=== PATIENT | male | born 1940 | race Caucasian/White ===

== ENCOUNTER → 2018-02-11 15:29 | Outpatient (CLI) | payer MEDICARE, OTHER, SELFPAY ==
--- NOTE | 2018-02-11 15:34 | MR_ITS ---
MR lumbar spine wo con Ordering Physician: Beltran Batista MD Patient Age: 77 years: Male HISTORY: ITS.REASON: LOW BACK PAIN AT MULTIPLE SITES Low back pain for years. TECHNIQUE: Sagittal STIR, T1, T2, axial T1 and T2. On 1.5T Siemens wide bore MRI. 3-D MR myelogram image set obtained & performed on MRI workstation. Additional sagittal thin section T2 weighted dataset obtained from this latter acquisition as well (---76 CPT) COMPARISON :June 2016 MRI FINDINGS Vertebral bodies are intact no compression fractures. L5/S1. This disc remains well-hydrated and fairly well-maintained. The prominent fairly exuberant facet hypertrophy digital bilateral foraminal encroachment and stenosis. L4/5 severe, critical central canal stenosis has developed at this level since 2016.. As seen on 2016 we again note the grade 1 anterolisthesis of L4 on L5 with roughly 4.5 mm anterolisthesis of L4 on L5. This is associated prominent diffuse disc bulge. There is now an additional additional additional disc extrusion/ herniation to the right paracentral region which extends slightly caudal to the disc and prominent indents the thecal sac right paracentral. It Further narrows the now markedly narrowed thecal sac.. The very exuberant facet & ligament flavum hypertrophy also significantly narrows the spinal canal. Together these features yield yield the severe, critical appearing spinal stenosis. Warrants timely neurosurgical consult. We Continue see CSF to this region but fairly prompt neurosurgical consult if recent progression of symptoms. L3/4. Disc intact. Prominent facet arthropathy, hypertrophy. L2/3. Disc intact. Moderate/generous facet and ligament flavum hypertrophy right greater than left. L1/2. Disc intact. Moderate facet hypertrophy. T12/L1 disc intact with mild facet hypertrophy. The left/12 disc intact with mild facet hypertrophy at this level as well as the level above. 3-D MR myelogram image set nicely demonstrates the severe near critical appearing spinal stenosis at L4/5. The thecal sac is severely narrowed and compromised. Fluid related to facet arthropathy is noted bilaterally right greater than left at this level as well -------IMPRESSION 1. Severe, fairly critical appearing central canal stenosis at L4/5 has developed since 2016. ... At L4/5 there there was previous underlying grade 1 anterolisthesis with diffuse disc bulge and marked exuberant facet hypertrophy. However now there is additional rightward caudal disc extrusion/disc herniation to the right which indents the thecal sac to right. ... These features combine to yield combination of features to yield the severe, fairly critical appearing central canal spinal stenosis.. ...*Timely neurosurgical consult warranted*. This would be more urgent if there were progressive or new symptoms 2. Other Lumbar disc appear intact. But there is prominent facet hypertrophy multiple levels.:. .L5/S1 Exuberant facet hypertrophy encroach upon the foramen . Diminishing facet hypertrophy moving superiorly up from L3/4,to L2/3 to L1/2
== END ==
PROVIDERS: Family Provider Family Medicine; PCP Family Medicine; Visit Provider Family Medicine
DX: M54.5 Low back pain (principal)
CPT/HCPCS: 72148; 76376

== ENCOUNTER → 2018-05-13 12:22 | Outpatient (POV) | payer MEDICARE, OTHER, SELFPAY | PROVIDERS: Family Provider Family Medicine; PCP Family Medicine; Visit Provider Neurological Surgery | DX: Z00.00 Encounter for general adult medical examination without abnormal findings (principal) ==

== ENCOUNTER → 2019-01-24 08:34 | Outpatient (POV) | payer MEDICARE, OTHER, SELFPAY | PROVIDERS: Visit Provider Nurse Practitioner Family | DX: Z00.00 Encounter for general adult medical examination without abnormal findings (principal) ==

== ENCOUNTER 2019-03-10 09:00 | Outpatient (RCR) | payer MEDICARE, OTHER, SELFPAY | END 2019-03-10 09:05 | disposition home or self-care (01) | LOC: PT 09:00 | PROVIDERS: Visit Provider Family Medicine | DX: M54.5 Low back pain (principal) | CPT/HCPCS: 97014; 97110; 97140; 97163; 97164; G0283 ==

== ENCOUNTER → 2019-06-14 08:21 | Outpatient (CLI) | payer MEDICARE, OTHER, SELFPAY ==
--- NOTE | 2019-06-14 08:29 | MR_ITS ---
PROCEDURE: MR PELVIS WO CON CLINICAL INDICATION: left groin pain/poss recurrent hernia Left lower quadrant pain, groin pain with burning stinging and throbbing COMPARISON: No exams were available for comparison TECHNIQUE: Routine multiplanar multi echo sequences are performed without gadolinium enhancement. FINDINGS: There is moderate degree of motion artifact. This does obscure fine detail. There is some nonspecific slight increased T2 signal in the left inguinal region which may be related to postsurgical changes. No obvious recurrence hernia apparent. A few small nodes are present in the inguinal region on both sides. No abnormal muscular or bone marrow signal intensity. No obvious mass the or abnormal fluid collection. IMPRESSION: Slight increased T2 signal in the left inguinal area nonspecific and may be due to postsurgical changes. No obvious recurring hernia or mass or localized fluid collection Dictated by: Grey Viveros MD 06/15/2019 11:34 Electronically signed by Grey Viveros MD in [place] 06/16/2019 05:09
== END ==
PROVIDERS: PCP Family Medicine; Visit Provider Surgery
DX: K40.91 Unilateral inguinal hernia, without obstruction or gangrene, recurrent (principal); R10.32 Left lower quadrant pain
CPT/HCPCS: 72195

== ENCOUNTER → 2019-09-05 10:25 | Outpatient (POV) | payer MEDICARE, OTHER, SELFPAY ==
[2019-09-05 10:48] VITALS: BP 134/65; PULSE 78; RESP 18; O2SAT 99; BMI 21.2
--- NOTE | 2019-09-05 11:12 | HMH.PMCON ---
Assessment and Plan (1) Spinal stenosis, lumbar region with neurogenic claudication Current visit: Yes Status: Chronic Category: Medical Code(s): M48.062 - Spinal stenosis, lumbar region with neurogenic claudication (2) Degenerative disc disease Current visit: Yes Status: Chronic Qualifiers: Spinal region: lumbar Qualified Code(s): M51.36 - Other intervertebral disc degeneration, lumbar region Category: Medical (3) Radiculopathy Current visit: Yes Status: Chronic Category: Medical Code(s): M54.10 - Radiculopathy, site unspecified - Assessment and plan all Dx Assessment and Plan for all problems:: We will schedule the patient for an epidurogram and L4-L5 lumbar epidural steroid injection. This will be to determine if he is a mild candidate. Patient states he does not want any oral narcotic medications I discussed with him that we would not be providing this. Patient again has seen a surgeon however he was referred for epidural injections which worked for short amount of time however they are no longer working for him. Patient has an MRI showing exuberant ligamentum flavum hypertrophy we will see if he is a candidate for mild. Patient's not on any anticoagulation therapy. I will follow-up with him afterwards reassess his symptoms at that time he has been instructed to call the office if he has any issues prior to his next appointment. Dr. Jimenez has reviewed this note and agrees with this plan of care. This note was dictated using voice recognition software and may contain errors or omissions HPI - Data of Consult Consult date: 09/05/19 Requesting Physician: Nereida Shaffer APRN Primary Care Provider: Beltran Batista MD - Consult Narrative Reason for consult: Back pain History of present illness: Mr. Adorno is a 79 year old male who presents today for consultation in regards to his low back pain. Patient has seen multiple pain providers and received facet joint injections rhizotomies and epidurals with no long-term relief. Patient did get several months of relief with his epidurals however this is now no longer beneficial for him. Patient has an MRI showing severe central canal stenosis and ligamentum flavum hypertrophy at the L4-L5 level. Patient states that it is difficult for him to stand and walk he gets weakness and numbness in his legs he has to lean forward or sit down for relief. Patient is not on any anticoagulation therapy. Patient will has been seen by a surgeon however they recommended he do epidural injections at the time. Patient and I had a long discussion about the mild procedure I do believe it would benefit him. Patient was given information in regards to this. Patient and I discussed an epidurogram and we will move forward with that at this time. CC: Nereida Shaffer APRN [facility] History I have reviewed the patient's past medical history: Yes Medical History: Reports:: Heart Murmur, Hyperlipidemia, Hypertension Denies:: Cancer, Diabetes Mellitus Type 1, Diabetes Mellitus Type 2, Internal Pacemaker, Lung Disease, MRSA, Seizures *Have you ever received a pneumonia vaccine?: Yes *Have you received a flu vaccine this season?: Yes Other Surgeries: Yes: Cholecystectomy, Colonoscopy, Colon Resection, EGD, Hernia Repair, Other. No: Pacemaker Amputation: No Fractures: No - *Social History Smoking Status: Never smoker Alcohol Intake: never Substance Use Type: denies use *Occupational Status:: other Housing: house Household Members: other *Travel in the last 8 weeks: None Family Hx:: Unable to obtain Review of Systems - Review of Systems ROS General: no recent weight change, no fever, no sleep disturbances Respiratory: no cough, no shortness of air, no recurring pulmonary infections Cardiovascular/Peripheral Vascular: No chest pain, No palpitations, no edema, no shortness of breath. Gastrointestinal: no new onset incontinence, normal bowel movements reported Genitourina
== END ==
PROVIDERS: PCP Family Medicine; Visit Provider Clinical Nurse Specialist Family Health
DX: M48.062 Spinal stenosis, lumbar region with neurogenic claudication (principal); M51.36 Other intervertebral disc degeneration, lumbar region; Z79.899 Other long term (current) drug therapy
CPT/HCPCS: 99202

== ENCOUNTER → 2019-11-28 10:13 | Outpatient (CLI) | payer MEDICARE, OTHER, SELFPAY ==
[2019-11-28 10:28] LABS: Basophils # 0.1 K/mm3 (0-0.2); Basophils % 0.7 % (0.1-2.0); Eosinophils # 0.2 K/mm3 (0.0-0.4); Hemoglobin 13.3 g/dL (14.1-18.0); Lymphocytes # 1.9 K/mm3 (0.7-4.5); Lymphocytes % 24.7 % (10-50); Mean Corpuscular HGB Conc 34.2 g/dL (31.8-35.4); Mean Corpuscular Hemoglobin 29.8 pg (27.0-31.2); Mean Corpuscular Volume 87.2 fl (80-94); Mean Platelet Volume 9.5 fl (7.4-10.4); Monocytes # 0.5 K/mm3 (0.1-1.0); Monocytes % 6.4 % (1.7-9.3); Neutrophils # 5.1 K/mm3 (1.8-7.8); Neutrophils % 65.2 % (37.0-80.0); Platelet Count 209 K/mm3 (142-424); Red Blood Count 4.48 M/mm3 (4.60-6.20); White Blood Count 7.8 K/mm3 (4.8-10.8)
[2019-11-28 11:37] LABS: Anion Gap 7.6 mEq/L (5-15); Blood Urea Nitrogen 18 mg/dl (9-20); Calcium 9.2 mg/dl (8.4-10.2); Carbon Dioxide 24 mmol/L (22.0-30.0); Chloride 109 mmol/L (98-107); Estimated Glomerular Filt Rate 109 ml/min (>60); GFR (African American) 131 ML/MIN (>60); Glucose 104 mg/dl (74-100); Potassium 3.6 mmoL/L (3.5-5.1); Sodium 137 mmol/L (136-145)
[2019-11-29 08:59] LABS: Covid-19 Nasal PCR Sendout Lex NOT DETECTED
--- NOTE | 2019-11-29 10:12 | PC.NURSE ---
0940-Patient, Mathew HOWE & Frances HOWE notified of negative COVID 19 results.
== END ==
PROVIDERS: Visit Provider Anesthesiology
DX: Z01.818 Encounter for other preprocedural examination (principal)
CPT/HCPCS: 36415; 80048; 85025; U0003

== ENCOUNTER → 2019-11-30 07:20 | Day surgery (SDC) | payer MEDICARE, OTHER, SELFPAY ==
--- NOTE | 2019-11-25 13:40 | SUR.PREOP ---
11/25/19 @ 3050--PHONE CALL MADE TO PATIENT. PATIENT UNDERSTANDS THAT LAB WORK AND COVID-19 TESTING NEEDS TO BE COMPLETED @ 1000 ON 11/28/19. PATIENT UNDERSTANDS IF LAB WORK AND COVID-19 TESTS ARE NOT COMPLETED BY 12PM ON THAT DATE, THE SURGERY SCHEDULED WILL BE CANCELLED AND RESCHEDULED FOR ANOTHER TIME.
[2019-11-29 10:22] VITALS: BMI 22.0
[2019-11-30] VITALS (9 sets, daily range): BP systolic 128–165; BP diastolic 63–98; PULSE 59–78; RESP 18–20; TEMP 36.7–36.8; O2SAT 96–98
--- NOTE | 2019-11-30 08:15 | HMH.ANESCL ---
[facility] Anesthesia Checklist - Patient Identification Patient Identification: Arm Band - Structural Data Admitted From: Home Planned Operative Procedure/s: MILD procedure L4/5 Consent for Planned Operative Procedure(s) Verified: Yes Verified Documents: Surgical Consent, History and Physical - NPO Status Verified Time NPO: 00:00 - Additional verifications Anesthesia Reactions: No Hx Blood Transfusions: No Blood Transfusion Reaction: No - Airway Assessment C-Spine Mobility Assessed: Yes (mp2) TMJ Mobility Assessed: Yes Dentition: Good Dentition - Neurological Assessment Level of Consciousness: Awake, Alert - Anesthesia Plan Anesthesia Risk discussed: Yes Anesthesia Plan: Verified ASA Class: II Anesthesia Type: MAC [facility] History I have reviewed the patient's past medical history: Yes Medical History: Reports:: Cancer (colon 1997), Gastroesophageal Reflux Disease(GERD), Heart Murmur, Hyperlipidemia, Hypertension Denies:: Diabetes Mellitus Type 1, Diabetes Mellitus Type 2, Internal Pacemaker, Lung Disease, MRSA, Seizures *Have you ever received a pneumonia vaccine?: Yes *Have you received a flu vaccine this season?: Yes Other Medical History: Denies: Blood Transfusion Reaction Anesthesia experience/problems:: nac Other Surgeries: Yes: Cholecystectomy, Colonoscopy, Colon Resection, EGD, Hernia Repair, Other. No: Pacemaker Amputation: No Fractures: No - *Social History Educational Level: Completed High School Smoking Status: Never smoker Alcohol Intake: never Substance Use Type: denies use *Occupational Status:: retired Housing: house Household Members: spouse *Travel in the last 8 weeks: None Family Hx:: Cancer, Coronary Artery Disease, Heart Attack
--- NOTE | 2019-11-30 10:47 | HMH.OPNOTE ---
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 He did get some benefit from his last lumbar epidural steroid injection however on epidurogram he has significant stenosis at L4-L5 bilaterally. This is also seen on MRI. He cannot stand or walk very long. After standing or walking he does get significant pain in his back and legs with some cramping. We will do bilateral minimally invasive lumbar decompression at L4-L5 today to help with his pain symptoms. Operative findings:: None Operative note:: Informed consent was obtained and the risk and benefits of the procedure was explained to the patient. The patient was taken to the operating room and placed prone on the procedure table. The patient was prepped and draped in sterile fashion. C-arm fluoroscopy was used to view the lumbar spine. Lines were drawn at the spinous process and medial border of the pedicles bilaterally. The skin and subcutaneous tissues were anesthetized using lidocaine. A epidural needle was inserted and advanced into the through L4-L5 interspace. After confirmation of needle placement in the epidural space, dye was injected. There was an epidurogram seen at L4-L5. Significant stenosis was seen at L4-L5. Most of this patient's symptoms were on the right. The skin and subcutaneous tissues again were anesthetized using lidocaine. An incision was made and a access trocar was inserted and advanced to contact at the superior aspect of the L5 lamina on the left side. And a contralateral oblique view the side was viewed. Using a bone rongeur and tissue sculptor we debulked bone from the L4-L5 interspace on the left side. We then used the tissue sculptor to debulk ligament at the L4-L5 interspace on the left side. We then moved over to the right side and debulked bone and ligament from L4-L5 on the right side. A total of 3 mL's of dye was used. There is good spread of dye above and below this level as well. The epidural needle was removed and dressings were placed. This encounter for exam is for normal comparison and control in a clinical research program Patient was taken to recovery in stable condition. Patient was discharged home neurologically intact and with good relief of pain symptoms. Plan and disposition: We will follow-up with this patient in 2 weeks. Will reevaluate symptoms at that time. Condition: stable Disposition: PACU Complications:: None
== END ==
PROVIDERS: PCP Family Medicine; Visit Provider Anesthesiology
PROC: (CPT 0275T; principal; 2019-11-30 08:45)
DX: M48.062 Spinal stenosis, lumbar region with neurogenic claudication (principal); Z00.6 Encounter for examination for normal comparison and control in clinical research program; M51.36 Other intervertebral disc degeneration, lumbar region; Z85.038 Personal history of other malignant neoplasm of large intestine; K21.9 Gastro-esophageal reflux disease without esophagitis; I10 Essential (primary) hypertension; E78.5 Hyperlipidemia, unspecified; R01.1 Cardiac murmur, unspecified; Z80.9 Family history of malignant neoplasm, unspecified; Z82.49 Family history of ischemic heart disease and other diseases of the circulatory system; Z84.89 Family history of other specified conditions
CPT/HCPCS: 0275T; 96372; 96374; C1889; J1040; J3370

== ENCOUNTER → 2019-12-12 12:55 | Outpatient (POV) | payer MEDICARE, OTHER, SELFPAY ==
[2019-12-12 13:13] VITALS: BP 130/86; PULSE 107; RESP 18; TEMP 36.6; O2SAT 99; BMI 36.9
--- NOTE | 2019-12-12 13:29 | P.CONS_ITS ---
[facility] Pain Management SOAP Note Subjective:: Patient is a pleasant 79-year-old white male who presents today for follow-up after his minimally invasive lumbar decompression. Patient states his back feels better and his left side has gotten much better. His only complaint is right-sided SI joint pain and right-sided piriformis pain. Patient and I discussed injective therapy for this. He would like to move forward with this. He rates his pain today a 7 out of 10. ROS General: no recent weight change, no fever, no sleep disturbances Respiratory: no cough, no shortness of air, no recurring pulmonary infections Cardiovascular/Peripheral Vascular: No chest pain, No palpitations, no edema, no shortness of breath. Gastrointestinal: no new onset incontinence, normal bowel movements reported Genitourinary: no new onset incontinence Musculoskeletal: SI joint pain, piriformis pain Psychiatric: normal mood/ affect, [denies depression], [denies anxiety] Neurological: [denies new onset weakness in extremities], [denies new onset balance issues] Objective:: Physical Exam General: Alert and oriented x3, no acute distress, pleasant and cooperative, [on room air] Lungs: Resps E/U, Symmetrical chest expansion, Eyes: PERRL Musculoskeletal: Flexion and extension of lumbar spine somewhat guarded seco ndary to pain, deep tendon reflexes normal, strength in upper and lower extremities [5/5], [abnormal gait noted] Neurological: speech clear, knowledge management consultant equal, no gross sensory deficits Assessment:: Sacroiliitis, piriformis syndrome, myofascial pain syndrome Plan:: We will schedule the patient for a right SI joint injection right piriformis injection. I will follow-up with him after this reassess his symptoms at that time he has been instructed to call the office if he has any issues prior to his next appointment. Dr. Jimenez has reviewed this note and agrees with this plan of care. This note was dictated using voice recognition software and may contain errors or omissions [facility] History I have reviewed the patient's past medical history: Yes Medical History: Reports:: Cancer (colon 1997), Gastroesophageal Reflux Disease(GERD), Heart Murmur, Hyperlipidemia, Hypertension Denies:: Diabetes Mellitus Type 1, Diabetes Mellitus Type 2, Internal Pacemaker, Lung Disease, MRSA, Seizures *Have you ever received a pneumonia vaccine?: Yes *Have you received a flu vaccine this season?: Yes Other Medical History: Denies: Blood Transfusion Reaction Other Surgeries: Yes: Cholecystectomy, Colonoscopy, Colon Resection, EGD, Hernia Repair, Other. No: Pacemaker Amputation: No Fractures: No - *Social History Smoking Status: Never smoker Alcohol Intake: never Substance Use Type: denies use *Occupational Status:: other Housing: house Household Members: spouse *Travel in the last 8 weeks: None Family Hx:: Cancer, Coronary Artery Disease, Heart Attack
== END ==
PROVIDERS: PCP Family Medicine; Visit Provider Clinical Nurse Specialist Family Health
DX: M46.1 Sacroiliitis, not elsewhere classified (principal); M79.18 Myalgia, other site
CPT/HCPCS: 99212

== ENCOUNTER 2019-12-13 13:28 | Day surgery (SDC) | payer MEDICARE, OTHER, SELFPAY ==
[2019-12-13 13:35] VITALS: BP 121/64; PULSE 70; RESP 18; O2SAT 96; BMI 22.0
--- NOTE | 2019-12-13 13:46 | HMH.PMPROC ---
- Procedure Date: 12/13/19 Time: 13:46 Anesthesiologist:: Nereida Shaffer APRN Complications:: None Pre-procedure Diagnosis:: Sacroiliitis myofascial pain syndrome Post-procedure Diagnosis:: Same Indications for Procedure:: Patient is a pleasant 79-year-old white male who presents today for right SI joint injection right piriformis muscle injection. He had a minimally invasive lumbar decompression and did better however he is now complaining of right SI joint pain and right piriformis pain. He rates his pain a 7 out of 10. Move forward with an injection today. Procedure Details:: Informed consent was obtained and the risks and benefits of the procedure were explained to the patient. Patient was taken to the procedure room. Patient was placed prone on the procedure table. The [right] hip was prepped using ChloraPrep as a cleansing solution. The skin and subcutaneous tissues were anesthetized using lidocaine. Using fluoroscopic guidance I placed a 22-gauge spinal needle into the inferior aspect of the [right] SI joint. After this I injected 5 mL bupivacaine 0.25% and Depo-Medrol 40 mg into the [right] SI joint. The patient tolerated the procedure well with no complication. He then moved onto the piriformis muscle injection right piriformis area was prepped using ChloraPrep as a cleansing solution. Trigger points were palpated and marked. Each of these trigger points were injected with 3 mL's of bupivacaine 0.25 and Depo-Medrol 10 mg. A total of 40 milligrams of Depo-Medrol was used for 2 trigger points in the piriformis muscle. Bandages were placed over the injection sites. Patient tolerated the procedure well with no complications. Plan and Disposition:: We will see the patient back in several weeks reassess his symptoms at that time he has been instructed to call the office if he has any issues prior to his next appointment. Dr. Jimenez has reviewed this note and agrees with this plan of care. This note was dictated using voice recognition software and may contain errors or omissions
[2019-12-13 13:50] VITALS: BP 135/85; PULSE 74; RESP 18
[2019-12-13 13:55] VITALS: BP 140/85; PULSE 75; RESP 18
[2019-12-13 14:19] VITALS: BP 126/64; PULSE 64; RESP 18; O2SAT 96
== END 2019-12-13 14:21 | disposition home or self-care (01) ==
LOC: SC.PAINP 13:29
PROVIDERS: PCP Family Medicine; Visit Provider Clinical Nurse Specialist Family Health
DX: M46.1 Sacroiliitis, not elsewhere classified (principal); M79.18 Myalgia, other site; M48.062 Spinal stenosis, lumbar region with neurogenic claudication; R01.1 Cardiac murmur, unspecified; I25.10 Atherosclerotic heart disease of native coronary artery without angina pectoris; Z87.19 Personal history of other diseases of the digestive system
CPT/HCPCS: 20552; 27096; G0260; J1030; Q9966

== ENCOUNTER → 2020-01-03 11:43 | Outpatient (POV) | payer MEDICARE, OTHER, SELFPAY ==
[2020-01-03 12:10] VITALS: BP 102/58; PULSE 79; RESP 18; TEMP 36.6; O2SAT 98; BMI 21.2
--- NOTE | 2020-01-03 12:20 | P.CONS_ITS ---
[facility] Pain Management SOAP Note Subjective:: Patient is a pleasant 79-year-old white male who presents today for follow-up. Patient had a NM LD procedure and has not had much relief from it. Patient states he is had about 20% improvement he is having worsening right leg pain. Patient had an SI joint injection which has not been beneficial. Patient and I talked about a lumbar epidural steroid injection. Patient rates his pain a 6 out of 10. He is having difficulty walking. We will set him up for an injection as soon as possible. He is not on any anticoagulation therapy. ROS General: no recent weight change, no fever, no sleep disturbances Respiratory: no cough, no shortness of air, no recurring pulmonary infections Cardiovascular/Peripheral Vascular: No chest pain, No palpitations, no edema, no shortness of breath. Gastrointestinal: no new onset incontinence, normal bowel movements reported Genitourinary: no new onset incontinence Musculoskeletal: Back pain, right leg pain Psychiatric: normal mood/ affect Neurological: [denies new onset weakness in extremities], [denies new onset balance issues] Objective:: Physical Exam General: Alert and oriented x3, no acute distress, pleasant and cooperative, [on room air] Lungs: Resps E/U, Symmetrical chest expansion, Eyes: PERRL Musculoskeletal: Flexion and extension of lumbar spine somewhat guarded secondary to pain, deep tendon reflexes normal, strength in upper and lower extremities [5/5], [abnormal gait noted] Neurological: speech clear, co teacher equal, no gross sensory deficits Assessment:: Degenerative disc disease lumbar spine with lumbar radiculopathy spinal stenosis neurogenic claudication Plan:: We will set the patient up for an L4-L5 lumbar epidural steroid injection. He is not on any anticoagulation therapy. I will follow-up with him after this reassess his symptoms at that time he has been instructed to call the office if he has any issues prior to his next appointment. Dr. Jimenez has reviewed this note and agrees with this plan of care. This note was dictated using voice recognition software and may contain errors or omissions [facility] History I have reviewed the patient's past medical history: Yes Medical History: Reports:: Cancer (bladder years ago), Gastroesophageal Reflux Disease(GERD), Heart Murmur, Hyperlipidemia, Hypertension Denies:: Diabetes Mellitus Type 1, Diabetes Mellitus Type 2, Internal Pacemaker, Lung Disease, MRSA, Seizures *Have you ever received a pneumonia vaccine?: Yes *Have you received a flu vaccine this season?: Yes Other Medical History: Denies: Blood Transfusion Reaction Other Surgeries: Yes: Cardiac Catheterization, Cholecystectomy, Colonoscopy, Colon Resection, EGD, Hernia Repair, Other. No: Pacemaker Amputation: No Fractures: No - *Social History Smoking Status: Never smoker Alcohol Intake: never Substance Use Type: denies use *Occupational Status:: other Housing: house Household Members: spouse *Travel in the last 8 weeks: None Family Hx:: Cancer, Coronary Artery Disease, Heart Attack
== END ==
PROVIDERS: PCP Family Medicine; Visit Provider Clinical Nurse Specialist Family Health
DX: M51.16 Intervertebral disc disorders with radiculopathy, lumbar region (principal); M48.062 Spinal stenosis, lumbar region with neurogenic claudication
CPT/HCPCS: 99212

== ENCOUNTER 2020-01-06 13:17 | Day surgery (SDC) | payer MEDICARE, OTHER, SELFPAY ==
[2020-01-06 13:27] VITALS: BP 127/71; PULSE 69; RESP 18; TEMP 36.6; O2SAT 96; BMI 21.2
[2020-01-06 14:22] VITALS: BP 144/66; PULSE 66
[2020-01-06 14:23] VITALS: BP 145/78; PULSE 69; RESP 18; O2SAT 99
[2020-01-06 14:33] VITALS: BP 131/70; PULSE 62; RESP 18; O2SAT 96
--- NOTE | 2020-01-06 14:38 | HMH.PMPROC ---
- Procedure Date: 01/06/20 Time: 14:38 Anesthesiologist:: Ron Jimenez MD Complications:: None Pre-procedure Diagnosis:: Degenerative disc disease of the lumbar spine with lumbar radiculopathy symptoms Post-procedure Diagnosis:: Same Indications for Procedure:: Patient is a pleasant 79-year-old white male who we have been treating for low back pain with lumbar radicular symptoms as well as spinal stenosis with neurogenic claudication symptoms and sacroiliitis. He has had the minimally invasive lumbar decompression as well as SI joint injections which have not given him much long-term relief. We will do lumbar epidural steroid injection today to help him with his pain symptoms. Procedure Details:: Lumbar epidural steroid injection under fluoroscopy Informed consent was obtained and the risk and benefits of the procedure was explained to the patient. The patient was taken to the procedure room. The patient was placed prone on the procedure table. The patient was prepped and draped in sterile fashion. C-arm fluoroscopy was used to view the lumbar spine. Skin and subcutaneous tissues were anesthetized using lidocaine. I placed an 18-gauge epidural needle and advanced into the L4-L5 interspace using fluoroscopic guidance and [id number] to air. After confirmation of needle placement in the epidural space with dye I injected 2 mL of lidocaine 1.5% with Depo-Medrol 80 mg. Patient tolerated the procedure well with no complications. Plan and Disposition:: We will follow-up with him in 2 weeks. Will reevaluate symptoms at that time.
== END 2020-01-06 14:35 | disposition home or self-care (01) ==
LOC: SC.PAINP 13:19
PROVIDERS: PCP Family Medicine; Visit Provider Anesthesiology
DX: M51.16 Intervertebral disc disorders with radiculopathy, lumbar region (principal); M48.062 Spinal stenosis, lumbar region with neurogenic claudication; I10 Essential (primary) hypertension; K21.9 Gastro-esophageal reflux disease without esophagitis; E78.5 Hyperlipidemia, unspecified; Z85.51 Personal history of malignant neoplasm of bladder; Z86.79 Personal history of other diseases of the circulatory system; Z90.49 Acquired absence of other specified parts of digestive tract; Z79.899 Other long term (current) drug therapy
CPT/HCPCS: 62323; Q9966

== ENCOUNTER 2020-01-20 09:04 | Day surgery (SDC) | payer MEDICARE, OTHER, SELFPAY ==
[2020-01-20 09:18] VITALS: BP 129/65; PULSE 70; RESP 16; TEMP 36.5; O2SAT 98; BMI 23.3
[2020-01-20 09:52] VITALS: BP 129/70; PULSE 65; RESP 18
[2020-01-20 09:53] VITALS: BP 130/72; PULSE 65; RESP 18; O2SAT 98
[2020-01-20 10:05] VITALS: BP 138/69; PULSE 64; RESP 20; O2SAT 96
--- NOTE | 2020-01-20 10:05 | P.PCN_ITS ---
- Procedure Date: 01/20/20 Time: 10:05 Anesthesiologist:: Ron Jimenez MD Complications:: None Pre-procedure Diagnosis:: Degenerative disc disease of lumbar spine with lumbar radiculopathy symptoms with spinal stenosis and neurogenic claudication symptoms. Facet arthropathy of lumbar spine Post-procedure Diagnosis:: Same Indications for Procedure:: This patient is a pleasant 79-year-old white male who we are treating for low back pain with lumbar radiculopathy symptoms. He did get some benefit from his last lumbar epidural steroid injection however he still has significant pain wh ile standing or walking. Most of his pain is in his back rating down his legs into his feet. He is status post minimally invasive lumbar decompression. We will plan on repeat lumbar epidural steroid injection under fluoroscopy today. He does also has facet arthropathy of lumbar spine. Procedure Details:: Lumbar epidural steroid injection under fluoroscopy Informed consent was obtained and the risk and benefits of the procedure was explained to the patient. The patient was taken to the procedure room. The patient was placed prone on the procedure table. The patient was prepped and draped in sterile fashion. C-arm fluoroscopy was used to view the lumbar spine. Skin and subcutaneous tissues were anesthetized using lidocaine. I placed an 18-gauge epidural needle and advanced into the L4-L5 interspace using fluoroscopic guidance and [id number] to air. After confirmation of needle placement in the epidural space with dye I injected 2 mL of lidocaine 1.5% with Depo-Medrol 80 mg. Patient tolerated the procedure well with no complications. Plan and Disposition:: We will follow-up with him in 2 weeks. Will reevaluate his symptoms at that time. We will also plan on bilateral facet joint injections of L4-5 and L5-S1 as he has benefited from these in the past with another physician.
== END 2020-01-20 10:05 | disposition home or self-care (01) ==
LOC: SC.PAINP 09:06
PROVIDERS: PCP Family Medicine; Visit Provider Anesthesiology
DX: M48.062 Spinal stenosis, lumbar region with neurogenic claudication (principal); M51.16 Intervertebral disc disorders with radiculopathy, lumbar region; M12.88 Other specific arthropathies, not elsewhere classified, other specified site; I10 Essential (primary) hypertension; R01.1 Cardiac murmur, unspecified; Z95.818 Presence of other cardiac implants and grafts; Z90.49 Acquired absence of other specified parts of digestive tract; Z82.49 Family history of ischemic heart disease and other diseases of the circulatory system; Z80.9 Family history of malignant neoplasm, unspecified; Z79.899 Other long term (current) drug therapy
CPT/HCPCS: 62323; J1040; Q9966

== ENCOUNTER 2020-01-29 15:08 | Emergency (ER) | payer MEDICARE, OTHER, SELFPAY ==
[2020-01-29 15:08] VITALS: BP 126/76; PULSE 84; RESP 16; TEMP 36.8; O2SAT 98; BMI 19.8
--- NOTE | 2020-01-29 15:56 | XR_ITS ---
PROCEDURE: XR CHEST PORTABLE CLINICAL HISTORY: weakness Generalized weakness COMPARISON: CXR CHEST(2 VIEWS-NOT PORTABLE) from 07/17/2015 XR CHEST 2V from 06/23/2019 FINDINGS: The cardiomediastinal silhouette and pulmonary vascularity are within normal limits. The lungs are clear without infiltrates, suspicious nodules, or pleural effusions. Chronic change in left lung base. No acute bony findings. IMPRESSION: No acute findings. Dictated by: Grey Viveros MD 01/30/2020 08:10 Electronically signed by Grey Viveros MD in [place] 01/30/2020 08:10
[2020-01-29 16:02] LABS: Microscopic, Urine URINE MICROSCOPIC (MICROSCOPIC)
[2020-01-29 16:05] LABS: Appearance,Urine CLEAR (Clear); Bilirubin,Urine Negative (Negative); Blood, Urine Negative (Negative); Color,Urine YELLOW (Yellow); Glucose,Urine (UA) Negative (Negative); Ketones,Urine Negative (Negative); Leukocyte Esterase,Urine Negative (Negative); Nitrate,Urine Negative (Negative); PH,Urine 5.5 (5.0-8.5); Protein,Urine Negative (Negative); Specific Gravity, Urine 1.025 (1.005-1.030); Urobilinogen,Urine 0.2 EU/dl (0.2)
[2020-01-29 16:13] LABS: Squamous Epithelial Cell,Urine Occasional #/hpf (0-5)
[2020-01-29 16:18] LABS: Basophils % 0.3 % (0.1-2.0); Eosinophils # 0.2 K/mm3 (0.0-0.4); Eosinophils % 1.2 % (0.1-12.0); Hematocrit 43.5 % (42.0-52.0); Hemoglobin 15.6 g/dL (14.1-18.0); Lymphocytes # 1.7 K/mm3 (0.7-4.5); Lymphocytes % 12.5 % (10-50); Mean Corpuscular HGB Conc 35.8 g/dL (31.8-35.4); Mean Corpuscular Hemoglobin 32.1 pg (27.0-31.2); Mean Corpuscular Volume 89.6 fl (80-94); Mean Platelet Volume 8.7 fl (7.4-10.4); Monocytes # 0.9 K/mm3 (0.1-1.0); Monocytes % 6.6 % (1.7-9.3); Neutrophils # 10.5 K/mm3 (1.8-7.8); Neutrophils % 79.5 % (37.0-80.0); Platelet Count 231 K/mm3 (142-424); Red Blood Count 4.85 M/mm3 (4.60-6.20); Red Cell Distribution Width 12.8 % (11.5-17.5); White Blood Count 13.2 K/mm3 (4.8-10.8)
[2020-01-29 16:21] LABS: Chloride 100 mmol/L (98-107); Sodium 132 mmol/L (136-145)
[2020-01-29 16:22] LABS: Potassium 4.8 mmoL/L (3.5-5.1)
[2020-01-29 16:24] LABS: Alanine Aminotransferase 19 U/L (12-78); Albumin Level 4.3 g/dl (3.5-5.0); Albumin/Globulin Ratio 1.5 (1.1-1.8); Alkaline Phosphatase 71 U/L (38-126); Anion Gap 12.8 mEq/L (5-15); Aspartate Amino Transferase 27 U/L (17-59); Bilirubin,Total 1.4 mg/dl (0.2-1.3); Blood Urea Nitrogen 29 mg/dl (9-20); Carbon Dioxide 24 mmol/L (22.0-30.0); Creatinine Clearance Estimated 49 mL/min (50-200); Estimated Glomerular Filt Rate 72 ml/min (>60); GFR (African American) 87 ML/MIN (>60); Globulin 2.8 g/dL (1.3-3.2); Total Protein,Serum 7.1 g/dl (6.3-8.2)
[2020-01-29 16:25] LABS: Calcium 9.4 mg/dl (8.4-10.2); Glucose 123 mg/dl (74-100)
[2020-01-29 16:41] LABS: Troponin I < 0.01 ng/ml (0.00-0.034)
[2020-01-29 16:48] VITALS: BP 144/78; PULSE 62; RESP 18; O2SAT 96
[2020-01-29 17:02] VITALS: BP 157/79; PULSE 61; RESP 18; O2SAT 96
--- NOTE | 2020-01-29 17:46 | HMH.EDGENADL ---
ED Disposition Clinical Impression: Dehydration after exertion Disposition: Home, Self-Care Condition on Discharge: Good Instructions: Dehydration Prescriptions: Tizanidine HCl [Zanaflex 4mg tablet] 4 mg PO TID 10 Days #30 tab Transmission Status: Pending to [facility] Referrals: Beltran Batista MD [Primary Care Provider] - - Critical Care Critical Care Time: No Attestation: On 01/29/20, the high probability of a clinically significant, sudden or life threatening deterioration of the following system(s) required my full and direct attention, intervention and personal management. The time I documented below is in addition to time spent performing reported procedures but includes the following listed in this critical care notation. Medical Decision Making - Medical Records Medical records reviewed: Yes: I reviewed the patient's medical records. - [place] Inquiry Pt receiving controlled substance: No Vital Signs: 01/29/20 15:08 01/29/20 16:48 01/29/20 17:02 Temperature 98.2 F Temperature Source Oral Pulse Rate [Left Radial] 84 62 61 Respiratory Rate 16 18 18 Blood Pressure [Right Arm] 126/76 144/78 H 157/79 H Blood Pressure Mean [Right Arm] 92 100 105 Blood Pressure Source [Right Arm] Automatic Cuff Automatic Cuff Blood Pressure Position [Right Arm] Sitting Supine Supine 02 Sat by Pulse Oximetry 98 96 96 Oxygen Delivery Method Room Air Room Air Room Air - Lab Data Lab results reviewed: Yes: I reviewed the patient's lab results. Lab Results 01/29/20 15:35: Urine Color Yellow, Urine Appearance Clear, Urine pH 5.5, Ur Specific [place] 1.025, Urine Protein Negative, Urine Glucose (UA) Negative, Urine Ketones Negative, Urine Blood Negative, Urine Nitrate Negative, Urine Bilirubin Negative, Urine Urobilinogen 0.2, Ur Leukocyte Esterase Negative, Urine RBC None, Urine WBC None, Ur Squamous Epith Cells Occasional, Urine Bacteria None 01/29/20 16:09: WBC 13.2 H, RBC 4.85, Hgb 15.6, Hct 43.5, MCV 89.6, MCH 32.1 H, MCHC 35.8 H, RDW 12.8, Plt Count 231, MPV 8.7, Neut % (Auto) 79.5, Lymph % (Auto) 12.5, [place] % (Auto) 6.6, Eos % (Auto) 1.2, Baso % (Auto) 0.3, Neut # (Auto) 10.5 H, Lymph # (Auto) 1.7, [place] # (Auto) 0.9, Eos # (Auto) 0.2, Baso # (Auto) 0.0 01/29/20 16:09: Sodium 132 L, Potassium 4.8, Chloride 100, Carbon Dioxide 24, Anion Gap 12.8, BUN 29 H, Creatinine 1.00, Estimated Creat Clear 49, Estimated GFR 72, Est GFR ( Amer) 87, Glucose 123 H, Calcium 9.4, Total Bilirubin 1.4 H, AST 27, ALT 19, Alkaline Phosphatase 71, Troponin I < 0.01, Total Protein 7.1, Albumin 4.3, Globulin 2.8, Albumin/Globulin Ratio 1.5 Result diagrams: 01/29/20 16:09 01/29/20 16:09 Orders (Tests/Meds): ED MEDICATIONS Generic Name Dose Route Start Last Admin Trade Name Freq PRN Reason Stop Dose Admin Sodium Chloride 1,000 mls @ 999 mls/hr 01/29/20 16:00 01/29/20 16:10 Sod Chlor 0.9% 1000ml Bag IV 01/29/20 17:00 999 mls/hr .Q1H1M BRIDGETT Administration ORDERS Category Date Time Status XR chest portable Stat Exams 01/29/20 15:56 Taken Troponin I Q3H Lab 01/29/20 19:00 Ordered Troponin I Q3H Lab 01/29/20 22:00 Ordered General Adult HPI - General Chief complaint: Weakness Stated complaint: exhaustion and weakness possible dehydration Time Seen by Provider: 01/29/20 17:46 Mode of Arrival: Ambulatory Limitations: No Limitations Description of Symptoms (Recalled from ER Triage Doc. by RN): to ed per pvt car with c/o generalized weakness, generalized pain, nausea, abd pain starting thursday after working outside. pt states he has had a 12lbs weight loss in 3 weeks. pt denies fever, diarrhea, or sick contacts. states I think he is dehydrated - History of Present Illness HPI narrative: 79-year-old gentleman presents the emergency department with fatigue and malaise x2 days. He states that he has been had a decrease in p.o. intake over the last few days and he was working outside on Fri
[2020-01-29 17:49] VITALS: BP 149/77; PULSE 64; RESP 18; O2SAT 95
[2020-01-29 18:38] VITALS: BP 117/61; PULSE 78; RESP 18; TEMP 36.6; O2SAT 98
== END 2020-01-29 18:40 | disposition home or self-care (01) ==
PROVIDERS: Emergency Provider Family Medicine; PCP Family Medicine
DX: E86.0 Dehydration (principal); I10 Essential (primary) hypertension; K21.9 Gastro-esophageal reflux disease without esophagitis; E78.5 Hyperlipidemia, unspecified; Z79.899 Other long term (current) drug therapy; Z90.49 Acquired absence of other specified parts of digestive tract
CPT/HCPCS: 71045; 80053; 81001; 84484; 85025; 93005; 96365; 96366; 96367; 99283

== ENCOUNTER 2020-02-03 09:34 | Day surgery (SDC) | payer MEDICARE, OTHER, SELFPAY ==
[2020-02-03 09:53] VITALS: BP 132/88; PULSE 68; RESP 18; TEMP 36.4; O2SAT 96; BMI 21.2
[2020-02-03 10:35] VITALS: BP 132/88; PULSE 82
[2020-02-03 10:36] VITALS: BP 142/88; PULSE 85; RESP 18; O2SAT 99
--- NOTE | 2020-02-03 10:39 | HMH.PMPROC ---
- Procedure Date: 02/03/20 Time: 10:39 Anesthesiologist:: Ron Jimenez MD Complications:: None Pre-procedure Diagnosis:: Degenerative disc disease of lumbar spine with lumbar spondylosis and facet arthropathy of lumbar spine Post-procedure Diagnosis:: Same Indications for Procedure:: This patient is a pleasant 79-year-old white male who we are treating for low back pain with lumbar radicular symptoms. He did get some benefit from his last lumbar epidural steroid injection. He also has facet arthropathy of the lumbar spine. His radicular symptoms are better he still has increasing axial pain. He is tender over the facet joints of L4-5 and L5-S1. We will do bilateral lumbar medial branch block/facet joint injections today to help him with his pain symptoms. Procedure Details:: Lumbar medial branch block Informed consent was obtained and the risks and benefits of the procedure was explained to the patient. The back was prepped using ChloraPrep. The skin and subcutaneous tissues were anesthetized using lidocaine. I placed 22-gauge spinal needles into the facet joint/medial branches of L4-L5 and L5-S1 bilaterally. Needle placement was confirmed with dye. After this we injected 3 mL bupivacaine 0.25% and Depo-Medrol 20 mg into each facet joint/medial branch of L4-L5 and L5-S1 bilaterally. We used a total of 80 mg Depo-Medrol for both levels bilaterally. The patient tolerated the procedure well with no complications. Plan and Disposition:: We will follow-up with him in 2 weeks. Will reevaluate symptoms at that time.
[2020-02-03 10:45] VITALS: BP 112/70; PULSE 58; RESP 20; O2SAT 96
== END 2020-02-03 10:46 | disposition home or self-care (01) ==
LOC: SC.PAINP 09:35
PROVIDERS: PCP Family Medicine; Visit Provider Anesthesiology
DX: M51.36 Other intervertebral disc degeneration, lumbar region (principal); M47.816 Spondylosis without myelopathy or radiculopathy, lumbar region; M12.88 Other specific arthropathies, not elsewhere classified, other specified site; I10 Essential (primary) hypertension; I49.9 Cardiac arrhythmia, unspecified; F41.9 Anxiety disorder, unspecified; F32.9 Major depressive disorder, single episode, unspecified; I25.10 Atherosclerotic heart disease of native coronary artery without angina pectoris; Z90.49 Acquired absence of other specified parts of digestive tract; Z79.899 Other long term (current) drug therapy
CPT/HCPCS: 64493; 64494; J1030; Q9966

== ENCOUNTER → 2020-02-20 12:32 | Outpatient (CLI) | payer MEDICARE, OTHER, SELFPAY ==
[2020-02-20 14:17] LABS: Erythrocyte Sedimentation Rate 12 mm/hr (0-20)
[2020-02-22 00:03] LABS: Albumin 3.5 g/dL (2.9-4.4); Alpha-1-Globulin 0.3 g/dL (0.0-0.4); Alpha-2-Globulin 0.7 g/dL (0.4-1.0); Gamma Globulin 0.8 g/dL (0.4-1.8); Protein, Total 6.2 g/dL (6.0-8.5)
[2020-02-22 19:49] LABS: Methylmalonic Acid 256 nmol/L (0-378)
[2020-02-23 10:11] LABS: Homocyst(e)ine 10.2 umol/L (0.0-19.2)
== END ==
PROVIDERS: Visit Provider Nurse Practitioner Family
DX: E53.8 Deficiency of other specified B group vitamins (principal); E78.5 Hyperlipidemia, unspecified
CPT/HCPCS: 36415; 82131; 83090; 84155; 84165; 85651

== ENCOUNTER → 2020-02-23 10:12 | Outpatient (POV) | payer MEDICARE, OTHER, SELFPAY ==
[2020-02-23 11:20] VITALS: BP 132/74; PULSE 63; RESP 18; O2SAT 98; BMI 22.0
--- NOTE | 2020-02-23 11:21 | HMH.PAINSOAP ---
[facility] Pain Management SOAP Note Subjective:: Patient is an 79-year-old male who presents today for follow-up. He is being treated for low back pain with lumbar spondylosis and facet arthropathy of his lumbar spine. Patient has undergone a medial branch block?facet injections x2 to his L4-L5 L5-S1 area. She says he has had rhizotomies in the past and is gotten great relief with the wrist. He says that he got relief for greater than 6 months with rhizotomies in the past. He is currently scheduled to see Dr. Santos for a possible nerve conduction study. He reports to be having chronic pain down his right leg with numbness and tingling to his foot. He says that he has tried SI joint injections with no relief. He says he did have a lumbar epidural steroid injections many years ago but cannot recall if he got any relief. He does rate his pain a 4 out of 10 today. He has tried physical therapy along with continued ice and heat therapies. Review of Systems General: No recent weight changes, no fever, no sleep disturbances Respiratory: No cough, no shortness of air, no recurring pulmonary infections Cardiovascular/peripheral vascular: No chest pain, no palpitations, no edema, no shortness of breath Gastrointestinal: No new onset incontinence, normal bowel movements reported Genitourinary: No new onset incontinence Musculoskeletal: Low back pain with new numbness and tingling right lower extremity Psychiatric: Normal mood/affect Neurological: [Denies weakness in extremities], [denies balance issues] Objective:: Physical exam General: Alert and oriented x3, no acute distress, pleasant and cooperative, [on room air] Lungs: Respirations even and unlabored, symmetrical chest expansion Eyes: PERRL Musculoskeletal: Flexion and extension of lumbar spine somewhat guarded secondary to pain, deep tendon reflexes normal, strength in upper and lower extremities [5/5], [abnormal gait noted] Neurological: Speech clear, child guidance counselor equal, no gross sensory deficit Assessment:: 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 He is not on any anticoagulation therapy. We will see him back in the clinic after his RFA to reassess his symptoms. He has been instructed to contact the clinic if he has any concerns before his next appointment. The patient and I specifically discussed risk factors for COVID19. These risks include, but are not limited to age greater than 60, heart or lung disease, diabetes, immunosuppression, and travel. We also discussed NSAIDs may worsen COVID19 infection or symptoms. Patient should not use NSAIDs to treat COVID19 signs or symptoms. Patient was also informed that any type of corticosteroid of any form (oral or injection) will decrease the patient's immune system response and may increase the likelihood of COVID19 infection [address] symptoms[address] Jimenez has reviewed this note and agrees with this plan of care. This note was dictated using voice recognition software and make contain errors or omissions. [facility] History I have reviewed the patient's past medical history: Yes Medical History: Reports:: Arrhythmia, Cancer, Carotid Stenosis, Gastroesophageal Reflux Disease(GERD), Heart Murmur, Hyperlipidemia, Hypertension Denies:: Diabetes Mellitus Type 1, Diabetes Mellitus Type 2, Internal Pacemaker, Lung Disease, MRSA, Seizures *Have you ever received a pneumonia vaccine?: Yes *Have you received a flu vaccine this season?: Yes Other Medical History: Reports: Arthritis. Denies: Blood Transfusion Reaction Other Surgeries: Yes: Cancer Surgery, Cardiac Catheterization, Cholecystectomy, Colonoscopy, Colon Resection, EGD, Hernia Repair, Other. No: Pacemaker Amputation: No Fractures: No - *Social History Smoking Status: Never smoker Alcohol Intake: never Substance Use Type: denies use *Occupational Status:: ot
== END ==
PROVIDERS: PCP Family Medicine; Visit Provider Clinical Nurse Specialist Family Health
DX: M51.36 Other intervertebral disc degeneration, lumbar region (principal); M47.816 Spondylosis without myelopathy or radiculopathy, lumbar region; M12.88 Other specific arthropathies, not elsewhere classified, other specified site
CPT/HCPCS: 99212

== ENCOUNTER 2020-03-09 13:51 | Day surgery (SDC) | payer MEDICARE, OTHER, SELFPAY ==
[2020-03-09 14:21] VITALS: BP 137/68; PULSE 65; RESP 18; TEMP 36.1; O2SAT 95; BMI 22.0
[2020-03-09 14:48] VITALS: BP 122/78; BP 123/79; PULSE 74; PULSE 75; RESP 18; O2SAT 98
--- NOTE | 2020-03-09 14:54 | HMH.PMPROC ---
- Procedure Date: 03/09/20 Time: 14:54 Anesthesiologist:: Ron Jimenez MD Complications:: None Pre-procedure Diagnosis:: Degenerative disease of lumbar spine with lumbar spondylosis and facet arthropathy of lumbar spine Post-procedure Diagnosis:: Same Indications for Procedure:: This patient is a pleasant 79-year-old white male who we are treating for low back pain with lumbar spondylosis and facet arthropathy of lumbar spine. He is done well with previous medial branch blocks at L4-5 and L5-S1. These were successful blocks with 70 to 80% relief in pain symptoms. Pain is starting to return. We will do lumbar RFA of L4-5 and L5-S1 on the right side today to help with his pain symptoms. Procedure Details:: Lumbar RFA informed consent was obtained and the risk and benefits of the procedure was explained to the patient. Patient was placed prone on the procedure table. The patient was prepped and draped in sterile fashion. C-arm fluoroscopy was used to view the lumbar spine. The skin and subcutaneous tissues were anesthetized using lidocaine. I placed 20-gauge RF needles into the facet joints of 4 5 and L5-S1 levels on the right side. We underwent sensory stimulation. There is good sensory stimulation at 0.8 V. We underwent motor stimulation. There is no motor stimulation at 2 V. We then anesthetized these levels with lidocaine and Depo-Medrol. I used a total of 40 mg Depo-Medrol for both levels. I then burned both levels of L4-5 and L5-S1 facet joint/medial branches on the right side for 4 minutes at 80 ?C. Patient tolerated the procedure well with no complication. Plan and Disposition:: We will follow-up with him in 2 weeks. Will reevaluate symptoms at that time.
[2020-03-09 15:10] VITALS: BP 143/69; PULSE 60; RESP 18; O2SAT 95
== END 2020-03-09 15:10 | disposition home or self-care (01) ==
LOC: SC.PAINP 13:52
PROVIDERS: PCP Family Medicine; Visit Provider Anesthesiology
DX: M51.36 Other intervertebral disc degeneration, lumbar region (principal); M47.816 Spondylosis without myelopathy or radiculopathy, lumbar region; M12.88 Other specific arthropathies, not elsewhere classified, other specified site; E78.5 Hyperlipidemia, unspecified; I10 Essential (primary) hypertension; F32.9 Major depressive disorder, single episode, unspecified; R01.1 Cardiac murmur, unspecified; Z90.49 Acquired absence of other specified parts of digestive tract; Z79.899 Other long term (current) drug therapy
CPT/HCPCS: 64635; 64636; J1040

== ENCOUNTER → 2020-03-26 14:32 | Outpatient (CLI) | payer MEDICARE, OTHER, SELFPAY ==
--- NOTE | 2020-03-26 14:32 | CT_ITS ---
PROCEDURE: CT SINUS WO CON CLINICAL HISTORY: Sinusitis,,persistent throat clearing COMPARISON: No exams were available for comparison TECHNIQUE: Axial images obtained with sagittal and coronal reformats. All CT scans at the facility use one or more dose reduction, viz: automated exposure control, ma/kV adjustment per patient size (including targeted exams where dose is matched to indication, i.e. head), or iterative reconstruction technique. FINDINGS: Significant mucosal thickening or air-fluid levels are evident. No sinus mass. The orbits have an unremarkable appearance. 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 The ostiomeatal units are patent. The mastoid sinuses have an unremarkable appearance. IMPRESSION: Negative CT sinuses Dictated by: Grey Viveros MD 03/27/2020 11:15 Grey Viveros MD in [place] 03/27/2020 11:15
== END ==
PROVIDERS: PCP Family Medicine; Visit Provider Specialist
DX: J32.9 Chronic sinusitis, unspecified (principal)
CPT/HCPCS: 70486

== ENCOUNTER → 2020-03-29 14:39 | Outpatient (POV) | payer MEDICARE, OTHER, SELFPAY ==
--- NOTE | 2020-03-29 15:12 | HMH.PAINSOAP ---
[facility] Pain Management SOAP Note Subjective:: Patient is a pleasant 79-year-old white male who presents today for follow-up. He has been treated for low back pain with lumbar spondylosis and facet arthropathy lumbar spine. Patient recently underwent a rhizotomy at L4-L5 L5-S1 on the right side. Patient says he did get up to 90% relief, however, he is now having pain over his right SI joint. He says it is tender to touch and radiating into his right buttock. He would like to undergo injections. He also has tenderness over his left SI joint and into his left buttock. He rates his pain a 4 out of 10 today. 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 He says that he is very active throughout the day and he is having difficulty with ambulation due to the pain. Review of Systems General: No recent weight changes, no fever, no sleep disturbances Respiratory: No cough, no shortness of air, no recurring pulmonary infections Cardiovascular/peripheral vascular: No chest pain, no palpitations, no edema, no shortness of breath Gastrointestinal: No new onset incontinence, normal bowel movements reported Genitourinary: No new onset incontinence Musculoskeletal: Low back pain, bilateral buttock pain Psychiatric: Normal mood/affect Neurological: [Denies weakness in extremities], [denies balance issues] Objective:: Physical exam General: Alert and oriented x3, no acute distress, pleasant and cooperative, [on room air] Lungs: Respirations even and unlabored, symmetrical chest expansion Eyes: PERRL Musculoskeletal: Flexion and extension of lumbar spine somewhat guarded secondary to pain, deep tendon reflexes normal, strength in upper and lower extremities [5/5], [abnormal gait noted] positive [place]'s test, positive Silvia's test, positive distraction test Neurological: Speech clear, booker equal, no gross sensory deficit Assessment:: Bilateral sacroiliitis Plan:: We will schedule patient for bilateral SI joint injections. We will plan to see him back after his injections to reassess his symptoms. Patient has been instructed to contact the clinic if he has any concerns before his next appointment. The patient and I specifically discussed risk factors for COVID19. These risks include, but are not limited to age greater than 60, heart or lung disease, diabetes, immunosuppression, and travel. We also discussed NSAIDs may worsen COVID19 infection or symptoms. Patient should not use NSAIDs to treat COVID19 signs or symptoms. Patient was also informed that any type of corticosteroid of any form (oral or injection) will decrease the patient's immune system response and may increase the likelihood of COVID19 infection [address] symptoms[address] Jimenez has reviewed this note and agrees with this plan of care. This note was dictated using voice recognition software and make contain errors or omissions. [facility] History I have reviewed the patient's past medical history: Yes Medical History: Reports:: Arrhythmia, Cancer, Carotid Stenosis, Gastroesophageal Reflux Disease(GERD), Heart Murmur, Hyperlipidemia, Hypertension Denies:: Diabetes Mellitus Type 1, Diabetes Mellitus Type 2, Internal Pacemaker, Lung Disease, MRSA, Seizures *Have you ever received a pneumonia vaccine?: Yes *Have you received a flu vaccine this season?: No Other Medical History: Reports: Arthritis. Denies: Blood Transfusion Reaction Other Surgeries: Yes: Cancer Surgery, Cardiac Catheterization, Cholecystectomy, Colonoscopy, Colon Resection, EGD, Hernia Repair, Other. No: Pacemaker Amputation: No Fractures: No - *Social History Smoking Status: Never smoker Alcohol Intake: never Substance Use Type: denies use *Occupational Status:: retired Housing: house Household Members: spouse *Travel in the last 8 weeks: None Family Hx:: Cancer, Heart Attack
== END ==
PROVIDERS: PCP Family Medicine; Visit Provider Clinical Nurse Specialist Family Health
DX: M46.1 Sacroiliitis, not elsewhere classified (principal)
CPT/HCPCS: 99212

== ENCOUNTER 2020-03-30 09:04 | Day surgery (SDC) | payer MEDICARE, OTHER, SELFPAY ==
[2020-03-30 09:46] VITALS: BP 132/79; PULSE 64; RESP 18; TEMP 36.2; O2SAT 97; BMI 22.0
[2020-03-30 10:27] VITALS: BP 125/77; PULSE 85; RESP 18; O2SAT 99
[2020-03-30 10:29] VITALS: BP 130/74; PULSE 74; RESP 18; O2SAT 99
[2020-03-30 10:46] VITALS: BP 149/71; PULSE 66; RESP 18; O2SAT 96
--- NOTE | 2020-03-30 11:41 | HMH.PMPROC ---
- Procedure Date: 03/30/20 Time: 11:41 Anesthesiologist:: Ron Jimenez MD Complications:: None Pre-procedure Diagnosis:: Sacroiliitis Post-procedure Diagnosis:: Same Indications for Procedure:: Patient is a pleasant 79-year-old white male who we have been treating for low back pain with lumbar spondylosis and facet arthropathy. He did well after his rhizotomy of L4-5 and L5-S1. He now has pain over both SI joints. Is positive Talha test bilaterally. Is positive Silvia's test bilaterally. Is positive SI joint compression test bilaterally. We will do bilateral SI joint injections today. Procedure Details:: B/L SI joint injection under fluoroscopy Informed consent was obtained and the risks and benefits of the procedure was explained to the patient. The patient was taken to the procedure room and placed prone on the procedure table. The patient was prepped using ChloraPrep. The skin and subcutaneous tissues overlying the SI joints were anesthetized using lidocaine. I placed a 22-gauge needle first in the left SI joint and second in the right SI joint. Needle placement was confirmed with dye. After this we injected 5 mL bupivacaine 0.25% and Depo-Medrol 40 mg into each SI joint. Patient tolerated the procedure well with no complication. Plan and Disposition:: We will follow-up with him in 2 weeks. Will reevaluate symptoms at that time.
== END 2020-03-30 10:48 | disposition home or self-care (01) ==
LOC: SC.PAINP 09:06
PROVIDERS: PCP Family Medicine; Visit Provider Anesthesiology
DX: M46.1 Sacroiliitis, not elsewhere classified (principal); M19.90 Unspecified osteoarthritis, unspecified site; M48.062 Spinal stenosis, lumbar region with neurogenic claudication; I10 Essential (primary) hypertension; F32.9 Major depressive disorder, single episode, unspecified; I25.10 Atherosclerotic heart disease of native coronary artery without angina pectoris; Z85.9 Personal history of malignant neoplasm, unspecified; Z79.899 Other long term (current) drug therapy; Z90.49 Acquired absence of other specified parts of digestive tract
CPT/HCPCS: 27096; 36415; 82131; 84155; 84165; 85651; 86334; G0260; J1030; Q9966

== ENCOUNTER → 2020-03-30 11:02 | Outpatient (CLI) | payer MEDICARE, OTHER, SELFPAY ==
[2020-03-30 12:50] LABS: Erythrocyte Sedimentation Rate 15 mm/hr (0-20)
[2020-04-03 14:16] LABS: Albumin 3.8 g/dL (2.9-4.4); Alpha-1-Globulin 0.2 g/dL (0.0-0.4); Alpha-2-Globulin 0.9 g/dL (0.4-1.0); Gamma Globulin 0.8 g/dL (0.4-1.8); Protein, Total 6.6 g/dL (6.0-8.5)
[2020-04-05 11:12] LABS: Methylmalonic Acid 174 nmol/L (0-378)
== END ==
PROVIDERS: Specialist; Visit Provider Nurse Practitioner Family
DX: G62.9 Polyneuropathy, unspecified (principal); M47.27 Other spondylosis with radiculopathy, lumbosacral region; R29.2 Abnormal reflex; E53.8 Deficiency of other specified B group vitamins; R53.83 Other fatigue; R63.4 Abnormal weight loss; M79.671 Pain in right foot; M79.672 Pain in left foot
CPT/HCPCS: 36415; 82131; 84155; 84165; 85651; 86334

== ENCOUNTER → 2020-04-26 09:43 | Outpatient (CLI) | payer MEDICARE, OTHER, SELFPAY ==
[2020-04-26 11:11] LABS: Chloride 107 mmol/L (98-107); Potassium 3.8 mmoL/L (3.5-5.1); Sodium 141 mmol/L (136-145)
[2020-04-26 11:14] LABS: Alanine Aminotransferase 17 U/L (12-78); Albumin Level 3.8 g/dl (3.5-5.0); Albumin/Globulin Ratio 1.7 (1.1-1.8); Alkaline Phosphatase 60 U/L (38-126); Anion Gap 11.8 mEq/L (5-15); Aspartate Amino Transferase 30 U/L (17-59); Bilirubin,Total 1.3 mg/dl (0.2-1.3); Blood Urea Nitrogen 24 mg/dl (9-20); Carbon Dioxide 26 mmol/L (22.0-30.0); Estimated Glomerular Filt Rate 93 ml/min (>60); GFR (African American) 113 ML/MIN (>60); Globulin 2.3 g/dL (1.3-3.2); Total Protein,Serum 6.1 g/dl (6.3-8.2)
[2020-04-26 11:15] LABS: Calcium 9.3 mg/dl (8.4-10.2); Glucose 102 mg/dl (74-100)
== END ==
PROVIDERS: Visit Provider Nurse Practitioner Family
DX: G62.9 Polyneuropathy, unspecified (principal); Z79.899 Other long term (current) drug therapy
CPT/HCPCS: 36415; 80053

== ENCOUNTER → 2020-05-07 09:11 | Outpatient (POV) | payer MEDICARE, OTHER, SELFPAY ==
[2020-05-07 09:23] VITALS: BP 128/82; PULSE 72; RESP 18; O2SAT 98; BMI 22.8
--- NOTE | 2020-05-07 09:40 | P.CONS_ITS ---
[facility] Pain Management SOAP Note Subjective:: Patient is a pleasant 79-year-old white male who presents today for follow-up after bilateral SI joint injections. Patient did not get any relief from his injection however he states he was not aware if he had any relief during that time of numbing that comes with a SI joint injection. Patient is interested in a corner lock however I discussed with him that if the SI joint injections are not beneficial for him it may not benefit him long-term. We also discussed repeating the SI joint injection so that he can be more cognizant of the effect that it has while the numbing medicine is present. Patient would like to move forward with that he rates his pain a 4 out of 10 he is also having right knee pain. Patient states that he had an allergic reaction to Synvisc. Since then he has had continual pain in his right knee. 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 Patient is tried and failed anti-inflammatories. ROS General: no recent weight change, no fever, no sleep disturbances Respiratory: no cough, no shortness of air, no recurring pulmonary infections Cardiovascular/Peripheral Vascular: No chest pain, No palpitations, no edema, no shortness of breath. Gastrointestinal: no new onset incontinence, normal bowel movements reported Genitourinary: no new onset incontinence Musculoskeletal: Bilateral SI joint pain Psychiatric: normal mood/ affect Neurological: [denies new onset weakness in extremities], [denies new onset balance issues] Objective:: Physical Exam General: Alert and oriented x3, no acute distress, pleasant and cooperative, [on room air] Lungs: Resps E/U, Symmetrical chest expansion, Eyes: PERRL Musculoskeletal: Flexion and extension of lumbar spine somewhat guarded secondary to pain, deep tendon reflexes normal, strength in upper and lower extremities [5/5], [abnormal gait noted] positive Talha test positive Silvia's test and positive SI joint compression test bilaterally. Neurological: speech clear, supervisor shop equal, no gross sensory deficits Assessment:: Sacroiliitis Plan:: We will schedule bilateral SI joint injections for the patient to see if this is beneficial for him. Patient is going to monitor relief during the numbing agent. Patient is interested in potentially moving forward with a corner lock if he gets relief. Patient's been instructed to call the office if he has any issues prior to his next appointment. Dr. Jimenez has reviewed this note and agrees with this plan of care. This note was dictated using voice recognition software and may contain errors or omissions [facility] History I have reviewed the patient's past medical history: Yes Medical History: Reports:: Arrhythmia, Cancer, Carotid Stenosis, Gastroesophageal Reflux Disease(GERD), Heart Murmur, Hyperlipidemia, Hypertension Denies:: Diabetes Mellitus Type 1, Diabetes Mellitus Type 2, Internal Pacemaker, Lung Disease, MRSA, Seizures *Have you ever received a pneumonia vaccine?: Yes *Have you received a flu vaccine this season?: No Other Medical History: Reports: Arthritis. Denies: Blood Transfusion Reaction Other Surgeries: Yes: Cancer Surgery (colon), Cardiac Catheterization, Cholecystectomy, Colonoscopy, Colon Resection, EGD, Hernia Repair, Other. No: Pacemaker Amputation: No Fractures: No - *Social History Smoking Status: Never smoker Alcohol Intake: never Substance Use Type: denies use *Occupational Status:: other Housing: house Household Members: spouse *Travel in the last 8 weeks: None Family Hx:: Cancer, Heart Attack
== END ==
PROVIDERS: PCP Family Medicine; Visit Provider Clinical Nurse Specialist Family Health
DX: M46.1 Sacroiliitis, not elsewhere classified (principal)
CPT/HCPCS: 99212

== ENCOUNTER 2020-05-11 09:17 | Day surgery (SDC) | payer MEDICARE, OTHER, SELFPAY ==
[2020-05-11 09:22] VITALS: BP 161/81; PULSE 72; RESP 18; TEMP 36.7; O2SAT 97; BMI 23.1
[2020-05-11 09:46] VITALS: BP 140/85; PULSE 89; RESP 18; O2SAT 98
[2020-05-11 09:55] VITALS: BP 133/78; PULSE 85; RESP 18; O2SAT 98
--- NOTE | 2020-05-11 09:59 | P.PCN_ITS ---
- Procedure Date: 05/11/20 Time: 09:59 Anesthesiologist:: Ron Jimenez MD Complications:: None Pre-procedure Diagnosis:: Sacroiliitis Post-procedure Diagnosis:: Same Indications for Procedure:: This patient is a pleasant 80-year-old white male who we have been treating for bilateral hip pain. Most of his pain is over his SI joints. At his last injection he may have gotten some short-term relief while the numbing medicine was in effect however this did not help him long-term. We will do repeat bilateral SI joint injections to see again if he only gets short-term but significant relief while numbing medicine is in place. Again he has severe chronic bilateral sacroiliitis and I do believe he would benefit from SI joint stabilization. Procedure Details:: B/L SI joint injection under fluoroscopy Informed consent was obtained and the risks and benefits of the procedure was explained to the patient. The patient was taken to the procedure room and pl aced prone on the procedure table. The patient was prepped using ChloraPrep. The skin and subcutaneous tissues overlying the SI joints were anesthetized using lidocaine. I placed a 22-gauge needle first in the left SI joint and second in the right SI joint. Needle placement was confirmed with dye. After this we injected 5 mL bupivacaine 0.25% and Depo-Medrol 40 mg into each SI joint. Patient tolerated the procedure well with no complication. Plan and Disposition:: We will follow-up with him in 2 weeks. Will reevaluate his symptoms at that time. Again I have told the patient to keep track of how long he gets relief for how much relief he gets if he does get significant relief only while the numbing medicine is in place he definitely is a candidate for SI joint stabilization with [facility]
[2020-05-11 10:07] VITALS: BP 178/75; PULSE 64; RESP 20; O2SAT 98
== END 2020-05-11 10:08 | disposition home or self-care (01) ==
PROVIDERS: PCP Family Medicine; Visit Provider Anesthesiology
DX: M46.1 Sacroiliitis, not elsewhere classified (principal); I10 Essential (primary) hypertension; E78.5 Hyperlipidemia, unspecified; I51.9 Heart disease, unspecified
CPT/HCPCS: 27096; G0260; J1030; Q9966

== ENCOUNTER → 2020-06-04 09:28 | Outpatient (POV) | payer MEDICARE, OTHER, SELFPAY ==
[2020-06-04 10:20] VITALS: BP 121/75; PULSE 68; RESP 18; TEMP 36.7; O2SAT 97; BMI 22.5
--- NOTE | 2020-06-04 11:33 | P.CONS_ITS ---
[facility] Pain Management SOAP Note Subjective:: Patient is a pleasant 80-year-old white male who we are treating for bilateral SI joint pain. 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 Patient is unable to take any downtime to have the surgery. Patient would like to continue his SI joint injections at this time. Patient I also talked about an SI joint belt. ROS General: no recent weight change, no fever, no sleep disturbances Respiratory: no cough, no shortness of air, no recurring pulmonary infections Cardiovascular/Peripheral Vascular: No chest pain, No palpitations, no edema, no shortness of breath. Gastrointestinal: no new onset incontinence, normal bowel movements reported Genitourinary: no new onset incontinence Musculoskeletal: SI joint pain Psychiatric: normal mood/ affect, Neurological: [denies new onset weakness in extremities], [denies new onset balance issues] Objective:: Physical Exam General: Alert and oriented x3, no acute distress, pleasant and cooperative, [on room air] Lungs: Resps E/U, Symmetrical chest expansion, Eyes: PERRL Musculoskeletal: Flexion and extension of lumbar spine somewhat guarded secondary to pain, deep tendon reflexes normal, strength in upper and lower extremities [5/5], [abnormal gait noted] positive Talha test SI joint compression test and distraction test bilaterally Neurological: speech clear, internal review and audit compliance equal, no gross sensory deficits Assessment:: Sacroiliitis Plan:: We will set the patient up for bilateral SI joint injections. He has been instructed to call the office if he has any issues prior to his next appointment. Dr. Jimenez has reviewed this note and agrees with this plan of care. This note was dictated using voice recognition software and may contain errors or omissions [facility] History I have reviewed the patient's past medical history: Yes Medical History: Reports:: Arrhythmia, Cancer, Carotid Stenosis, Gastroesophageal Reflux Disease(GERD), Heart Murmur, Hyperlipidemia, Hypertension, Valvular Heart Disease Denies:: Diabetes Mellitus Type 1, Diabetes Mellitus Type 2, Internal Pacemaker, Lung Disease, MRSA, Seizures *Have you ever received a pneumonia vaccine?: Yes *Have you received a flu vaccine this season?: Yes Other Medical History: Reports: Arthritis, Liver Disease. Denies: Blood Transfusion Reaction Other Surgeries: Yes: Cancer Surgery (colon), Cardiac Catheterization, Cholecystectomy, Colonoscopy, Colon Resection, EGD, Hernia Repair, Other. No: Pacemaker Amputation: No Fractures: No - *Social History Smoking Status: Never smoker Alcohol Intake: never Substance Use Type: denies use *Occupational Status:: employed Housing: house Household Members: spouse *Travel in the last 8 weeks: None Family Hx:: Cancer, Heart Attack
== END ==
PROVIDERS: PCP Family Medicine; Visit Provider Clinical Nurse Specialist Family Health
DX: M46.1 Sacroiliitis, not elsewhere classified (principal)
CPT/HCPCS: 99212

== ENCOUNTER 2020-06-08 09:18 | Day surgery (SDC) | payer MEDICARE, OTHER, SELFPAY ==
[2020-06-08 09:41] VITALS: BP 124/72; PULSE 71; RESP 18; TEMP 36.8; O2SAT 96; BMI 22.8
[2020-06-08 10:04] VITALS: BP 138/85; PULSE 79; RESP 18; TEMP 36.6; O2SAT 99
[2020-06-08 10:05] VITALS: BP 140/74; PULSE 89; RESP 18; O2SAT 99
--- NOTE | 2020-06-08 10:16 | HMH.PMPROC ---
- Procedure Date: 06/08/20 Time: 10:16 Anesthesiologist:: oRn Jimenez MD Complications:: None Pre-procedure Diagnosis:: Sacroiliitis Post-procedure Diagnosis:: Same Indications for Procedure:: This patient is a pleasant 80-year-old white male who we have been treating for bilateral SI joint pain. He got 90% relief for a few days after bilateral SI joint injections. He did very well right side is worse than left. He presents for repeat bilateral SI joint injections under fluoroscopy today. He has a positive Silvia's test bilaterally. He has positive SI joint compression test bilaterally. He has a positive distraction test bilaterally. Is positive Talha test bilaterally. Procedure Details:: B/L SI joint injection under fluoroscopy Informed consent was obtained and the risks and benefits of the procedure was explained to the patient. The patient was taken to the procedure room and placed prone on the procedure table. The patient was prepped using ChloraPrep. The skin and subcutaneous tissues overlying the SI joints were anesthetized using lidocaine. I placed a 22-gauge needle first in the left SI joint and second in the right SI joint. Needle placement was confirmed with dye. After this we injected 5 mL bupivacaine 0.25% and Depo-Medrol 40 mg into each SI joint. Patient tolerated the procedure well with no complication. Plan and Disposition:: We will follow-up with him in 2 weeks. We will plan on rhizotomy to the right SI joint. Has had a previous rhizotomy which gave him relief for several weeks. He does want SI joint stabilization however he cannot have this done until the spring.
[2020-06-08 10:20] VITALS: BP 148/79; PULSE 62; RESP 20; O2SAT 96
== END 2020-06-08 10:20 | disposition home or self-care (01) ==
LOC: SC.PAINP 09:19
PROVIDERS: PCP Family Medicine; Visit Provider Anesthesiology
DX: M46.1 Sacroiliitis, not elsewhere classified (principal); I10 Essential (primary) hypertension; E78.5 Hyperlipidemia, unspecified
CPT/HCPCS: 27096; G0260; J1030; Q9966

== ENCOUNTER 2020-06-15 11:52 | Day surgery (SDC) | payer MEDICARE, OTHER, SELFPAY ==
[2020-06-15 12:13] VITALS: BP 122/70; PULSE 68; RESP 18; TEMP 36.7; O2SAT 98; BMI 22.8
[2020-06-15 12:39] VITALS: BP 119/78; PULSE 89; RESP 18; O2SAT 98
[2020-06-15 12:40] VITALS: BP 120/78; PULSE 78; RESP 18; O2SAT 98
--- NOTE | 2020-06-15 12:43 | HMH.PMPROC ---
- Procedure Date: 06/15/20 Time: 12:44 Anesthesiologist:: Ron Jimenez MD Complications:: None Pre-procedure Diagnosis:: Sacroiliitis Post-procedure Diagnosis:: Same Indications for Procedure:: Patient is a pleasant 80-year-old white male who been treating for bilateral SI joint pain. He is tender over both SI joints. He has a positive Silvia's test bilaterally. Is positive Talha test bilaterally. Is positive SI joint compression test bilaterally. He has a positive distraction test bilaterally. He did get 90% relief after SI joint injections however this was not long-lasting. He is done well with previous RF ablation to the SI joints. Most of his pain is on the left side today. We will do RF ablation to the left SI joint today to help him with his pain symptoms. Procedure Details:: SI joint RFA Form consent was obtained risk and benefits of the procedure was explained to the patient. Patient was taken to the procedure room. Left hip was prepped using ChloraPrep. I placed 20-gauge RF needles into the left SI joint. We placed 4 needles encompassing the entire left SI joint. We underwent sensory stimulation. There is good sensory stimulation at 0.8 V. We then underwent motor stimulation. There is no motor stimulation at 2.5 V. We then anesthetized the left SI joint with bupivacaine 0.25% and Depo-Medrol 40 mg. We then burned each needle for 4 minutes at 80 ?C burning the entire left SI joint. The patient tolerated the procedure well with no complications. Plan and Disposition:: We will follow-up with him in 2 weeks. Will reevaluate symptoms at that time. We will plan on RF ablation to the right SI joint if needed.
[2020-06-15 12:56] VITALS: BP 126/79; PULSE 60; RESP 18; O2SAT 98
== END 2020-06-15 12:57 | disposition home or self-care (01) ==
LOC: SC.PAINP 11:53
PROVIDERS: PCP Family Medicine; Visit Provider Anesthesiology
DX: M46.1 Sacroiliitis, not elsewhere classified (principal); I10 Essential (primary) hypertension; E78.5 Hyperlipidemia, unspecified; K21.9 Gastro-esophageal reflux disease without esophagitis; I25.10 Atherosclerotic heart disease of native coronary artery without angina pectoris; F41.9 Anxiety disorder, unspecified
CPT/HCPCS: 64625; J1040; Q9966

== ENCOUNTER 2020-07-06 10:44 | Day surgery (SDC) | payer MEDICARE, OTHER, SELFPAY ==
[2020-07-06 11:22] VITALS: BP 136/64; PULSE 60; RESP 18; TEMP 36.4; O2SAT 98; BMI 22.8
[2020-07-06 11:55] VITALS: BP 118/78; PULSE 85; RESP 18; O2SAT 98
[2020-07-06 11:56] VITALS: BP 125/74; PULSE 74; RESP 18; O2SAT 98
[2020-07-06 12:08] VITALS: BP 147/84; PULSE 58; RESP 18; O2SAT 98
--- NOTE | 2020-07-06 12:12 | HMH.PMPROC ---
- Procedure Date: 07/06/20 Time: 12:12 Anesthesiologist:: Ron Jimenez MD Complications:: None Pre-procedure Diagnosis:: Chronic sacroiliitis Post-procedure Diagnosis:: Same Indications for Procedure:: This patient is a pleasant 80-year-old white male who we have been treating for chronic sacroiliitis. He is done well with injections however they have not been long-lasting. He presents for radiofrequency ablation to his right SI joint today. He did get long-term relief from this previously. Procedure Details:: Radiofrequency ablation to the right SI joint Informed consent was obtained and the risk and benefits of the procedure was explained to the patient. Patient was taken to the procedure room. The right hip was prepped using ChloraPrep. RF needles were placed into the right SI joint. There is total of 4 needles placed encompassing the entire right SI joint. We underwent sensory stimulation. There is good sensory stimulation at 1 V. There is no motor stimulation at 3 V. We anesthetized the right SI joint with low lidocaine and Depo-Medrol 40 mg. We then burned each needle at 80 ?C for 4 minutes burning the entire right SI joint. We burned each one of the 4 needles again at 80 ?C for 4 minutes. Patient tolerated the procedure well with no complications. Plan and Disposition:: We will follow-up with him in 2 weeks. Will reevaluate symptoms at that time.
== END 2020-07-06 12:09 | disposition home or self-care (01) ==
LOC: SC.PAINP 10:45
PROVIDERS: PCP Family Medicine; Visit Provider Anesthesiology
DX: M46.1 Sacroiliitis, not elsewhere classified (principal); I10 Essential (primary) hypertension; E78.5 Hyperlipidemia, unspecified; Z79.899 Other long term (current) drug therapy
CPT/HCPCS: 64625; J1040

== ENCOUNTER → 2020-08-02 08:27 | Outpatient (POV) | payer MEDICARE, OTHER, SELFPAY ==
--- NOTE | 2020-08-02 08:50 | HMH.PAINSOAP ---
[facility] Pain Management SOAP Note Subjective:: Patient is a pleasant 80-year-old white male who we have been treating for chronic sacroiliitis. He does not get long-lasting relief with his injections however he is following up after radiofrequency ablation of his SI joints. Patient had good relief with his right SI joint however his left SI joint is giving him pain at this time. He rates it a 6 out of 10. He has a positive Talha Silvia's and SI joint compression test on that side. Patient and I talked about a booster shot in the SI joint and he would like to move forward with this. Patient is also having some right knee pain. That he would like to address in the future. ROS General: no recent weight change, no fever, no sleep disturbances Respiratory: no cough, no shortness of air, no recurring pulmonary infections Cardiovascular/Peripheral Vascular: No chest pain, No palpitations, no edema, no shortness of breath. Gastrointestinal: no new onset incontinence, normal bowel movements reported Genitourinary: no new onset incontinence Musculoskeletal: Back pain, SI joint pain, knee pain Psychiatric: normal mood/ affect Neurological: [denies new onset weakness in extremities], [denies new onset balance issues] Objective:: Physical Exam General: Alert and oriented x3, no acute distress, pleasant and cooperative, [on room air] Lungs: Resps E/U, Symmetrical chest expansion, Eyes: PERRL Musculoskeletal: Flexion and extension of lumbar spine somewhat guarded secondary to pain, deep tendon reflexes normal, strength in upper and lower extremities [5/5], antalgic gait noted Neurological: speech clear, registered respiratory therapist equal, no gross sensory deficits Assessment:: Sacroiliitis, knee pain Plan:: We will schedule the patient for a left SI joint injection. I will follow-up with him after this reassess his symptoms at that time he has been instructed to call the office if he has any issues prior to his next appointment. He has had good relief with these injections in the past. Dr. Jimenez has reviewed this note and agrees with this plan of care. This note was dictated using voice recognition software and may contain errors or omissions [facility] History I have reviewed the patient's past medical history: Yes Medical History: Reports:: Arrhythmia, Carotid Stenosis, Gastroesophageal Reflux Disease(GERD), Heart Murmur, Hyperlipidemia, Hypertension, Valvular Heart Disease Denies:: Cancer, Diabetes Mellitus Type 1, Diabetes Mellitus Type 2, Internal Pacemaker, Lung Disease, MRSA, Seizures *Have you ever received a pneumonia vaccine?: No *Have you received a flu vaccine this season?: No Other Medical History: Reports: Arthritis, Liver Disease. Denies: Blood Transfusion Reaction Other Surgeries: Yes: Cancer Surgery (colon), Cardiac Catheterization, Cholecystectomy, Colonoscopy, Colon Resection, EGD, Hernia Repair, Other. No: Pacemaker Amputation: No Fractures: No - *Social History Smoking Status: Never smoker Alcohol Intake: never Substance Use Type: denies use *Occupational Status:: retired Housing: house Household Members: spouse *Travel in the last 8 weeks: None Family Hx:: Cancer, Heart Attack
[2020-08-02 08:53] VITALS: BP 167/93; PULSE 69; RESP 18; O2SAT 98; BMI 22.8
== END ==
PROVIDERS: PCP Family Medicine; Visit Provider Clinical Nurse Specialist Family Health
DX: M46.1 Sacroiliitis, not elsewhere classified (principal); M25.569 Pain in unspecified knee
CPT/HCPCS: 99212; G0463

== ENCOUNTER 2020-08-06 14:06 | Day surgery (SDC) | payer MEDICARE, OTHER, SELFPAY ==
[2020-08-06 14:10] VITALS: BP 140/77; PULSE 68; RESP 18; TEMP 36.3; O2SAT 98; BMI 22.0
--- NOTE | 2020-08-06 14:56 | HMH.PMPROC ---
- Procedure Date: 08/06/20 Time: 15:05 Anesthesiologist:: Nereida Shaffer APRN Complications:: None Pre-procedure Diagnosis:: Sacroiliitis Post-procedure Diagnosis:: Same Indications for Procedure:: Patient is pleasant 80-year-old white male who presents today for a left SI joint injection. Patient has left SI joint pain. He has had injections in the past getting 80% relief for several months. Patient has a positive Talha test SI joint compression test Silvia's test and distraction test on the left side. We will move forward with left SI joint injection today. Procedure Details:: Informed consent was obtained and the risks and benefits of the procedure were explained to the patient. Patient was taken to the procedure room. Patient was placed prone on the procedure table. The left hip was prepped using ChloraPrep as a cleansing solution. The skin and subcutaneous tissues were anesthetized using lidocaine. Using fluoroscopic guidance I placed a 22-gauge spinal needle into the inferior aspect of the left SI joint. After this I injected 5 mL bupivacaine 0.25% and Depo-Medrol 40 mg into the left SI joint. The patient tolerated the procedure well with no complication. Plan and Disposition:: We will see the patient back in several weeks reassess his symptoms at that time he has been instructed to call the office if he has any issues prior to his next appointment. Dr. Jimenez has reviewed this note and agrees with this plan of care. This note was dictated using voice recognition software and may contain errors or omissions
[2020-08-06 15:02] VITALS: BP 125/85; PULSE 85
[2020-08-06 15:03] VITALS: BP 128/85; PULSE 86; RESP 18; O2SAT 98
[2020-08-06 15:22] VITALS: BP 146/78; PULSE 64; RESP 18; O2SAT 98
== END 2020-08-06 15:23 | disposition home or self-care (01) ==
LOC: SC.PAINP 14:08
PROVIDERS: PCP Family Medicine; Visit Provider Clinical Nurse Specialist Family Health
DX: M46.1 Sacroiliitis, not elsewhere classified (principal); I10 Essential (primary) hypertension; E78.5 Hyperlipidemia, unspecified; N40.0 Benign prostatic hyperplasia without lower urinary tract symptoms; I25.10 Atherosclerotic heart disease of native coronary artery without angina pectoris; Z79.899 Other long term (current) drug therapy
CPT/HCPCS: 27096; G0260; J1030; J1040; Q9966

== ENCOUNTER → 2020-08-27 08:57 | Outpatient (POV) | payer MEDICARE, OTHER, SELFPAY ==
--- NOTE | 2020-08-27 09:27 | HMH.PAINSOAP ---
[facility] Pain Management SOAP Note Subjective:: Patient is a pleasant 80-year-old white male who presents today for follow-up after left SI joint injection. Patient got 100% relief of his symptomology. His only pain is now in his right knee. Patient rates it a 4 out of 10 he has difficulty with walking and standing. Patient has pain on the medial side of his knee. Patient has not had intra-articular steroid injections in the past with no success. We discussed a genicular nerve block he would like to move forward with this. Failed over 3 months worth of medications, anti-inflammatories, home stretching program. Patient is trying to stay as active as possible. ROS General: no recent weight change, no fever, no sleep disturbances Respiratory: no cough, no shortness of air, no recurring pulmonary infections Cardiovascular/Peripheral Vascular: No chest pain, No palpitations, no edema, no shortness of breath. Gastrointestinal: no new onset incontinence, normal bowel movements reported Genitourinary: no new onset incontinence Musculoskeletal: Right knee pain Psychiatric: normal mood/ affect Neurological: [denies new onset weakness in extremities], [denies new onset balance issues] Objective:: Physical Exam General: Alert and oriented x3, no acute distress, pleasant and cooperative, Lungs: Resps E/U, Symmetrical chest expansion, Eyes: PERRL Musculoskeletal: Range of Motion right knee somewhat guarded secondary to pain, deep tendon reflexes normal, strength in upper and lower extremities [5/5], [abnormal gait noted] Neurological: speech clear, manager operations and procurement equal, no gross sensory deficits Assessment:: Right knee pain Plan:: The patient for right genicular nerve block. Patient tried and failed intra-articular steroid injections. Patient may be a candidate for a genicular neurotomy. Patient's failed over 6 months of conservative therapy. I will follow-up with him after his block reassess his symptoms at that time he has been instructed to call the office if he has any issues prior to his next appointment. Dr. Jimenez has reviewed this note and agrees with this plan of care. This note was dictated using voice recognition software and may contain errors or omissions [facility] History I have reviewed the patient's past medical history: Yes Medical History: Reports:: Arrhythmia, Carotid Stenosis, Gastroesophageal Reflux Disease(GERD), Heart Murmur, Hyperlipidemia, Hypertension, Valvular Heart Disease Denies:: Cancer, Diabetes Mellitus Type 1, Diabetes Mellitus Type 2, Internal Pacemaker, Lung Disease, MRSA, Seizures *Have you ever received a pneumonia vaccine?: No *Have you received a flu vaccine this season?: No Other Medical History: Reports: Arthritis, Liver Disease. Denies: Blood Transfusion Reaction Other Surgeries: Yes: Cancer Surgery (colon), Cardiac Catheterization, Cholecystectomy, Colonoscopy, Colon Resection, EGD, Hernia Repair, Other. No: Pacemaker Amputation: No Fractures: No - *Social History Smoking Status: Never smoker Alcohol Intake: never Substance Use Type: denies use *Occupational Status:: retired Housing: house Household Members: spouse *Travel in the last 8 weeks: None Family Hx:: Cancer, Heart Attack
[2020-08-27 10:13] VITALS: BP 122/74; PULSE 68; RESP 18; TEMP 36.8; O2SAT 99; BMI 22.8
== END ==
PROVIDERS: PCP Family Medicine; Visit Provider Clinical Nurse Specialist Family Health
DX: M25.561 Pain in right knee (principal)
CPT/HCPCS: 99212; G0463

== ENCOUNTER 2020-08-31 09:45 | Day surgery (SDC) | payer MEDICARE, OTHER, SELFPAY ==
[2020-08-31 09:55] VITALS: BP 130/64; PULSE 76; RESP 18; TEMP 36.2; O2SAT 98; BMI 22.8
--- NOTE | 2020-08-31 10:16 | HMH.PMPROC ---
- Procedure Date: 08/31/20 Time: 10:16 Anesthesiologist:: Ron Jimenez MD Complications:: None Pre-procedure Diagnosis:: Right knee degenerative osteoarthritis Post-procedure Diagnosis:: Same Indications for Procedure:: Patient is a pleasant 80-year-old white male who we are treating for right knee pain. He is status post left SI joint injection with 100% relief of his pain symptomology in his left hip. His pain is now concentrated over the right knee. He does have degenerative osteoarthritis he has not had good success with intra-articular injections. He presents for right knee genicular nerve block today. We will do superior lateral genicular nerve, Superior medial genicular nerve, and inferior medial genicular nerves. Procedure Details:: Genicular nerve block, superior medial, superior lateral and inferior medial Informed consent was obtained the risk and benefits of the procedure were explained to the patient. The right knee was prepped using ChloraPrep. The skin and subtenons tissues were anesthetized using lidocaine. I placed 22-gauge spinal needles into the areas of the genicular nerve, superior medial, superior lateral and inferior medial. Needle placement was confirmed with dye. After this we injected 3 mL bupivacaine 0.25% and Depo-Medrol 13 mg into each genicular nerve, superior medial, superior lateral and inferior medial. We use a total of 40 mg Depo-Medrol for all 3 genicular nerves. Patient tolerated procedure well with no complications. Plan and Disposition:: We will follow-up with him in 2 weeks. Will reevaluate symptoms at that time. If he does get benefit from these injections we may proceed to RFA of the genicular nerves, superior medial, superior lateral and inferior medial genicular nerves.
[2020-08-31 10:18] VITALS: BP 125/88; PULSE 74; RESP 18
[2020-08-31 10:19] VITALS: BP 120/74; PULSE 74; RESP 18; O2SAT 99
[2020-08-31 10:40] VITALS: BP 142/73; PULSE 68; RESP 18; O2SAT 98
== END 2020-08-31 10:40 | disposition home or self-care (01) ==
LOC: SC.PAINP 09:47
PROVIDERS: PCP Family Medicine; Visit Provider Anesthesiology
DX: M17.11 Unilateral primary osteoarthritis, right knee; I10 Essential (primary) hypertension; E78.5 Hyperlipidemia, unspecified; M46.1 Sacroiliitis, not elsewhere classified; Z79.899 Other long term (current) drug therapy
CPT/HCPCS: 64454; J1040; Q9966

== ENCOUNTER 2020-09-22 01:50 | Emergency (ER) | payer MEDICARE, OTHER, SELFPAY ==
[2020-09-22] VITALS (7 sets, daily range): BP systolic 161–204; BP diastolic 79–107; PULSE 61–74; RESP 13–18; TEMP 36.7; O2SAT 93–98; BMI 22.8
--- NOTE | 2020-09-22 01:50 | ECG_ITS ---
APPROVED REPORT Exam: Resting ECG HR:67 bpm ECG Measurements Heart Rate 67 AXES OK 162 P 72 QRSd 174 QRS 9 QT 440 T 111 QTc 464 Conclusion Normal sinus rhythm Left bundle branch block Abnormal ECG Electronically signed by : Jarvis Paz, 09/25/2020 17:23:11
--- NOTE | 2020-09-22 01:51 | PC.NURSE ---
all orders placed by .pt took full strength asa prior to arrival.
--- NOTE | 2020-09-22 01:58 | HMH.EDCP ---
ED Disposition Clinical Impression: Hypertensive urgency Chest pain Qualifiers: Chest pain type: unspecified Qualified Code(s): R07.9 - Chest pain, unspecified Disposition: Home, Self-Care Condition on Discharge: Good Instructions: DI for Atypical Chest Pain Additional Instructions: Increase your lisinopril to twice per day and follow up with your primary care next week. Increase your oral hydration and return to the ED for any new or worsening symptoms. Referrals: Beltran Batista MD [Primary Care Provider] - Time of Disposition: 05:35 - Critical Care Critical Care Time: No Attestation: On , the high probability of a clinically significant, sudden or life threatening deterioration of the following system(s) required my full and direct attention, intervention and personal management. The time I documented below is in addition to time spent performing reported procedures but includes the following listed in this critical care notation. Medical Decision Making - Medical Records Medical records reviewed: Yes: I reviewed the patient's medical records. - [place] Inquiry Pt receiving controlled substance: No Vital Signs: 09/22/20 01:50 09/22/20 03:00 09/22/20 03:30 Temperature 98.0 F Temperature Source Oral Pulse Rate [Right Brachial] 74 66 63 Respiratory Rate 16 14 18 Blood Pressure [Right Arm] 192/90 H 172/86 H 162/83 H Blood Pressure Mean [Right Arm] 124 114 109 Blood Pressure Source [Right Arm] Automatic Cuff Automatic Cuff Automatic Cuff Blood Pressure Position [Right Arm] Sitting Sitting Sitting 02 Sat by Pulse Oximetry 96 95 95 Oxygen Delivery Method Room Air Room Air 09/22/20 04:00 09/22/20 04:30 09/22/20 05:00 Temperature Temperature Source Pulse Rate [Right Brachial] 61 65 69 Respiratory Rate 13 14 15 Blood Pressure [Right Arm] 172/82 H 167/79 H 163/79 H Blood Pressure Mean [Right Arm] 112 108 107 Blood Pressure Source [Right Arm] Automatic Cuff Automatic Cuff Automatic Cuff Blood Pressure Position [Right Arm] Sitting Sitting Sitting 02 Sat by Pulse Oximetry 94 L 94 L 93 L Oxygen Delivery Method Room Air Room Air Room Air - Lab Data Lab Results 09/22/20 01:53: Troponin I < 0.01 09/22/20 01:53: WBC 11.3 H, RBC 5.04, Hgb 15.1, Hct 45.9, MCV 91.0, MCH 30.0, MCHC 33.0, RDW 13.1, Plt Count 231, MPV 8.5, Neut % (Auto) 74.1, Lymph % (Auto) 17.9, Andrews % (Auto) 6.6, Eos % (Auto) 1.1, Baso % (Auto) 0.4, Neut # (Auto) 8.4 H, Lymph # (Auto) 2.0, Andrews # (Auto) 0.8, Eos # (Auto) 0.1, Baso # (Auto) 0.0 09/22/20 01:53: Sodium 141, Potassium 3.5, Chloride 103, Carbon Dioxide 32 H, Anion Gap 9.5, BUN 21 H, Creatinine 1.00, Estimated Creat Clear 56, Estimated GFR 72, Est GFR ( Amer) 87, Glucose 124 H, Calcium 11.0 H Result diagrams: 09/22/20 01:53 09/22/20 01:53 Orders (Tests/Meds): ED MEDICATIONS Generic Name Dose Route Start Last Admin Trade Name Freq PRN Reason Stop Dose Admin Sodium Chloride 1,000 mls @ 999 mls/hr 09/22/20 02:15 09/22/20 02:29 Sod Chlor 0.9% 1000ml Bag IV 09/22/20 03:15 999 mls/hr .Q1H1M BRIDGETT Administration Discontinued Medications Generic Name Dose Route Start Last Admin Trade Name Freq PRN Reason Stop Dose Admin Aspirin 324 mg 09/22/20 02:02 09/22/20 02:14 Aspirin 81mg Chewable Tablet PO 09/22/20 02:03 Not Given ONCE ONE Belladonna Alkaloids 60 ml 09/22/20 02:00 09/22/20 02:15 Gi Cocktail 60ml Udc PO 09/22/20 02:01 60 ml ONCE ONE Administration ORDERS Category Date Time Status CT head/brain wo con Stat Cat Scan 09/22/20 02:02 Taken XR chest 2V Stat Exams 09/22/20 02:00 Taken Troponin I Q3H Lab 09/22/20 04:55 Received Troponin I Q3H Lab 09/22/20 08:00 Ordered EKG Request [ECG Request by /Rainer] Stat Y 09/22/20 02:10 Ordered - Radiology Data #1 Image(s): Chest Image Reviewed: Yes I reviewed the patient's radiology image Preliminary Findings: Normal/NAD - ECG Data Tracing #1 I review
--- NOTE | 2020-09-22 02:00 | XR_ITS ---
PROCEDURE: XR CHEST 2V CLINICAL HISTORY: chest pain COMPARISON: CR CXR CHEST(2 VIEWS-NOT PORTABLE) from 07/17/2015 CR XR CHEST 2V from 06/23/2019 CR XR CHEST PORTABLE from 01/29/2020 FINDINGS: The cardiomediastinal silhouette and pulmonary vascularity are within normal limits. The lungs are clear without infiltrates, suspicious nodules, or pleural effusions. No acute bony abnormalities. IMPRESSION: No acute findings. Dictated by: Grey Viveros MD 09/22/2020 08:05 Grey Viveros MD in [facility] 09/22/2020 08:05
--- NOTE | 2020-09-22 02:02 | CT_ITS ---
PROCEDURE: CT HEAD/BRAIN WO CON CLINICAL INDICATION: recent fall Head injury with headache/pain, contusion, abrasion or hematoma, dizziness COMPARISON: No exams were available for comparison TECHNIQUE: Axial images obtained. All CT scans at the facility use one or more dose reduction, viz: automated exposure control, ma/kV adjustment per patient size (including targeted exams where dose is matched to indication, i.e. head), or iterative reconstruction technique. FINDINGS: No midline shift, mass effect, intracranial hemorrhage, hydrocephalus, or extra-axial fluid collection is evident. There is generalized atrophy with hypoattenuation of the periventricular white matter consistent with microangiopathic changes. The calvarium has an unremarkable appearance. No mastoid effusion. No sinus air-fluid level. IMPRESSION: No acute intracranial finding Dictated by: Grey Viveros MD 09/22/2020 08:04 Grey Viveros MD in [facility] 09/22/2020 08:04
[2020-09-22 02:12] LABS: Basophils % 0.4 % (0.1-2.0); Eosinophils # 0.1 K/mm3 (0.0-0.4); Eosinophils % 1.1 % (0.1-12.0); Hematocrit 45.9 % (42.0-52.0); Hemoglobin 15.1 g/dL (14.1-18.0); Lymphocytes % 17.9 % (10-50); Mean Platelet Volume 8.5 fl (7.4-10.4); Monocytes # 0.8 K/mm3 (0.1-1.0); Monocytes % 6.6 % (1.7-9.3); Neutrophils # 8.4 K/mm3 (1.8-7.8); Neutrophils % 74.1 % (37.0-80.0); Platelet Count 231 K/mm3 (142-424); Red Blood Count 5.04 M/mm3 (4.60-6.20); Red Cell Distribution Width 13.1 % (11.5-17.5); White Blood Count 11.3 K/mm3 (4.8-10.8)
[2020-09-22 02:15] LABS: Anion Gap 9.5 mEq/L (5-15); Blood Urea Nitrogen 21 mg/dl (9-20); Carbon Dioxide 32 mmol/L (22.0-30.0); Chloride 103 mmol/L (98-107); Creatinine Clearance Estimated 56 mL/min (50-200); Estimated Glomerular Filt Rate 72 ml/min (>60); GFR (African American) 87 ML/MIN (>60); Glucose 124 mg/dl (74-100); Potassium 3.5 mmoL/L (3.5-5.1); Sodium 141 mmol/L (136-145)
[2020-09-22 02:37] LABS: Troponin I < 0.01 ng/ml (0.00-0.034)
--- NOTE | 2020-09-22 05:06 | PC.NURSE ---
recheck ekg due to radiation monitor changes.
--- NOTE | 2020-09-22 05:20 | ECG_ITS ---
APPROVED REPORT Exam: Resting ECG HR:62 bpm ECG Measurements Heart Rate 62 AXES NC 178 P 76 QRSd 170 QRS -39 QT 468 T 88 QTc 475 Conclusion Normal sinus rhythm Left axis deviation Left bundle branch block Abnormal ECG Electronically signed by : Jarvis Paz, 09/25/2020 17:23:04
[2020-09-22 05:32] LABS: Troponin I < 0.01 ng/ml (0.00-0.034)
== END 2020-09-22 05:39 | disposition home or self-care (01) ==
PROVIDERS: Emergency Provider Student in an Organized Health Care Education/Training Program; PCP Family Medicine
DX: I16.0 Hypertensive urgency (principal); R07.9 Chest pain, unspecified; K21.9 Gastro-esophageal reflux disease without esophagitis; E78.5 Hyperlipidemia, unspecified; R01.1 Cardiac murmur, unspecified; Z79.899 Other long term (current) drug therapy
CPT/HCPCS: 70450; 71046; 80048; 84484; 85025; 93005; 99284

== ENCOUNTER → 2020-09-24 08:57 | Outpatient (POV) | payer MEDICARE, OTHER, SELFPAY ==
[2020-09-24 09:00] VITALS: BP 144/82; PULSE 71; RESP 18; O2SAT 99; BMI 22.8
--- NOTE | 2020-09-24 09:19 | P.CONS_ITS ---
[facility] Pain Management SOAP Note Subjective:: Pleasant 80-year-old white male who we are treating for right knee pain. He has recently had a right knee genicular nerve block. Patient got extremely good relief with this. He had 90% relief for more than 2 days. Patient was able to complete ADLs with better functionality. Patient tried and failed other treatment options including anti-inflammatories, medications for over 6 weeks. Patient is interested in pursuing a genicular RFA I do believe this would benefit him given the success of his block. He rates his pain today an 8 out of 10 ROS General: no recent weight change, no fever, no sleep disturbances Respiratory: no cough, no shortness of air, no recurring pulmonary infections Cardiovascular/Peripheral Vascular: No chest pain, No palpitations, no edema, no shortness of breath. Gastrointestinal: no new onset incontinence, normal bowel movements reported Genitourinary: no new onset incontinence Musculoskeletal:right Knee pain Psychiatric: normal mood/ affect Neurological: [denies new onset weakness in extremities], [denies new onset balance issues] Objective:: Physical Exam General: Alert and oriented x3, no acute distress, pleasant and cooperative, [on room air] Lungs: Resps E/U, Symmetrical chest expansion, Eyes: PERRL Musculoskeletal: range of motion right knee somewhat guarded secondary to pain, deep tendon reflexes normal, strength in upper and lower extremities [5/5], [abnormal gait noted] Neurological: speech clear, food service coordinator equal, no gross sensory deficits Assessment:: Degenerative osteoarthritis right knee Plan:: We will plan a right genicular RFA given the efficacy of his genicular block. I will follow-up with him after this reassess his symptoms at that time. He is also been having some trouble with his blood pressure. He has an appointment with his primary care physician. He has been instructed to call the office if he has any issues prior to his next appointment. Dr. Jimenez has reviewed this note and agrees with this plan of care. This note was dictated using voice recognition software and may contain errors or omissions [facility] History I have reviewed the patient's past medical history: Yes Medical History: Reports:: Arrhythmia, Carotid Stenosis, Gastroesophageal Reflux Disease(GERD), Heart Murmur, Hyperlipidemia, Hypertension, Valvular Heart Disease Denies:: Cancer, Diabetes Mellitus Type 1, Diabetes Mellitus Type 2, Internal Pacemaker, Lung Disease, MRSA, Seizures *Have you ever received a pneumonia vaccine?: Yes *Have you received a flu vaccine this season?: Yes Other Medical History: Reports: Arthritis, Liver Disease. Denies: Blood Transfusion Reaction Other Surgeries: Yes: Cancer Surgery (colon), Cardiac Catheterization, Cholecystectomy, Colonoscopy, Colon Resection, EGD, Hernia Repair, Other. No: Pacemaker Amputation: No Fractures: No - *Social History Smoking Status: Never smoker Alcohol Intake: never Substance Use Type: denies use *Occupational Status:: retired Housing: house Household Members: spouse *Travel in the last 8 weeks: None Family Hx:: Cancer, Heart Attack
== END ==
PROVIDERS: PCP Family Medicine; Visit Provider Clinical Nurse Specialist Family Health
DX: M17.11 Unilateral primary osteoarthritis, right knee (principal)
CPT/HCPCS: 99212; G0463

== ENCOUNTER 2020-09-28 09:54 | Day surgery (SDC) | payer MEDICARE, OTHER, SELFPAY ==
[2020-09-28 10:15] VITALS: BP 165/80; BP 183/83; PULSE 53; PULSE 66; RESP 14; RESP 18; TEMP 36.3; TEMP 36.8; O2SAT 95; O2SAT 97; BMI 24.7
--- NOTE | 2020-09-28 10:56 | HMH.PMPROC ---
- Procedure Date: 09/28/20 Time: 10:56 Anesthesiologist:: Ron Jimenez MD Complications:: None Pre-procedure Diagnosis:: Degenerative joint disease with increasing chronic right knee pain Post-procedure Diagnosis:: Same Indications for Procedure:: This patient is a pleasant 80-year-old white male who we are treating for right knee pain. He has done very well with a previous right genicular nerve block with 90% relief for several days. He has chronic right knee pain with degenerative joint disease. We will plan on right knee genicular nerve RFA today of the superior medial, superior lateral and inferior medial genicular nerves. Hopefully with this will give him long-term pain relief. Procedure Details:: Right knee genicular RFA Informed consent was obtained and the risk and benefits of the procedure with explained to the patient. Patient was taken to the procedure room. The right knee was prepped using ChloraPrep. The skin and subcutaneous tissues were anesthetized using lidocaine. 20-gauge RF needles were placed into the area of the genicular nerve, superior medial, superior lateral and inferior medial genicular nerves. We underwent sensory stimulation. There was good sensory stimulation at 1.2 V. There was no motor stimulation at 3 V. We anesthetized each genicular nerve with bupivacaine 0.25% and Depo-Medrol. We used total of 40 mg Depo-Medrol for all 3 nerves and we burned each nerve, superior lateral genicular nerve, superior medial genicular nerve and inferior medial genicular nerve, each 1 for 4 minutes at 80 ?C. Patient's tolerated the procedure well with no complications. Plan and Disposition:: We will follow-up with him in 2 weeks. Will reevaluate symptoms at that time.
[2020-09-28 11:01] VITALS: BP 142/77; PULSE 74
[2020-09-28 11:10] VITALS: BP 174/74; PULSE 82; RESP 18; O2SAT 98
== END 2020-09-28 11:25 | disposition home or self-care (01) ==
LOC: SC.PAINP 09:57
PROVIDERS: PCP Family Medicine; Visit Provider Anesthesiology
DX: M17.11 Unilateral primary osteoarthritis, right knee (principal); I10 Essential (primary) hypertension; E78.5 Hyperlipidemia, unspecified; I25.10 Atherosclerotic heart disease of native coronary artery without angina pectoris; K21.9 Gastro-esophageal reflux disease without esophagitis; N40.0 Benign prostatic hyperplasia without lower urinary tract symptoms; Z79.899 Other long term (current) drug therapy
CPT/HCPCS: 64624; J1040

== ENCOUNTER → 2020-10-04 08:44 | Outpatient (CLI) | payer MEDICARE, OTHER, SELFPAY ==
--- NOTE | 2020-10-04 | CA_ITS ---
APPROVED REPORT Miniature Model Maker: [email or web address] Laterality: Bilateral Study Quality: Excellent Risk Factors Hypertension: Doppler Spectral Velocity Analysis ECA (R) 99.40/10.30 cm/s ECA (L) 97.30/10.50 cm/s dICA (R) 73.70/20.60 cm/s dICA (L) 67.30/23.20 cm/s Camron (R) 96.00/29.10 cm/s Camron (L) 77.80/25.40 cm/s pICA (R) 81.40/26.60 cm/s pICA (L) 100.30/27.70 cm/s dCCA (R) 70.30/14.60 cm/s dCCA (L) 80.10/18.00 cm/s pCCA (R) 93.00/11.80 cm/s pCCA (L) 87.50/19.50 cm/s Vert (R) 47.10/15.00 cm/s Vert (L) 24.70/6.00 cm/s Findings Duplex evaluation demonstrates antegrade flow of the bilateral Vertebral Arteries. Duplex evaluation demonstrates stenosis of the right proximal internal carotid artery in the range of 20-49% with PSV <140 cm/sec, EDV <100 cm/sec, and IC/CC Ratio <4.0.Duplex evaluation demonstrates stenosis of the left proximal internal carotid artery in the range of 20-49% with PSV <140 cm/sec, EDV <100 cm/sec, and IC/CC Ratio <4.0. Conclusion Duplex evaluation demonstrates antegrade flow of the bilateral Vertebral Arteries. Duplex evaluation demonstrates stenosis of the right proximal internal carotid artery in the range of 20-49% with PSV <140 cm/sec, EDV <100 cm/sec, and IC/CC Ratio <4.0.Duplex evaluation demonstrates stenosis of the left proximal internal carotid artery in the range of 20-49% with PSV <140 cm/sec, EDV <100 cm/sec, and IC/CC Ratio <4.0. Electronically signed by : Grey Viveros MD 10/04/2020 17:28:51
== END ==
PROVIDERS: PCP Family Medicine; Visit Provider Family Medicine
DX: R09.89 Other specified symptoms and signs involving the circulatory and respiratory systems (principal)
CPT/HCPCS: 93880

== ENCOUNTER → 2020-10-18 09:42 | Outpatient (POV) | payer MEDICARE, OTHER, SELFPAY ==
[2020-10-18 09:45] VITALS: BP 138/88; PULSE 78; RESP 18; O2SAT 98; BMI 22.8
--- NOTE | 2020-10-18 10:15 | HMH.PAINSOAP ---
[facility] Pain Management SOAP Note Subjective:: Is a pleasant 80-year-old white male who presents today for follow-up. Patient had a right knee genicular RFA. He did not get long-term relief with that he rates his pain a 4 out of 10. I discussed with him I believe it is time for him to return to his orthopedic surgeon for consultation in regards to this. Patient has had multiple injections with no long-term relief. Patient has also been awaiting an SI joint stabilization. Patient wanted to wait until after the season for feeding calcium is over which will be in November. We will go forward with getting him approved for right SI joint stabilization. Patient has had several SI joint injections with good relief. Up to 80%. ROS General: no recent weight change, no fever, no sleep disturbances Respiratory: no cough, no shortness of air, no recurring pulmonary infections Cardiovascular/Peripheral Vascular: No chest pain, No palpitations, no edema, no shortness of breath. Gastrointestinal: no new onset incontinence, normal bowel movements reported Genitourinary: no new onset incontinence Musculoskeletal: Knee pain, SI joint pain Psychiatric: normal mood/ affect Neurological: [denies new onset weakness in extremities], [denies new onset balance issues] Objective:: Physical Exam General: Alert and oriented x3, no acute distress, pleasant and cooperative, [on room air] Lungs: Resps E/U, Symmetrical chest expansion, Eyes: PERRL Musculoskeletal: Flexion and extension of lumbar spine somewhat guarded secondary to pain, deep tendon reflexes normal, strength in upper and lower extremities [5/5], [abnormal gait noted] Neurological: speech clear, nursing executive equal, no gross sensory deficits Assessment:: Sacroiliitis, right knee pain Plan:: We will send the patient to orthopedics for consultation regards to his right knee pain. We will also schedule the patient for a SI joint stabilization in November. He has been instructed to call the office if he has any issues prior to his next appointment. Dr. Jimenez has reviewed this note and agrees with this plan of care. This note was dictated using voice recognition software and may contain errors or omissions [facility] History I have reviewed the patient's past medical history: Yes Medical History: Reports:: Arrhythmia, Carotid Stenosis, Gastroesophageal Reflux Disease(GERD), Heart Murmur, Hyperlipidemia, Hypertension, Valvular Heart Disease Denies:: Cancer, Diabetes Mellitus Type 1, Diabetes Mellitus Type 2, Internal Pacemaker, Lung Disease, MRSA, Seizures *Have you ever received a pneumonia vaccine?: Yes *Have you received a flu vaccine this season?: Yes Other Medical History: Reports: Arthritis, Liver Disease. Denies: Blood Transfusion Reaction Other Surgeries: Yes: Cancer Surgery (colon), Cardiac Catheterization, Cholecystectomy, Colonoscopy, Colon Resection, EGD, Hernia Repair, Other. No: Pacemaker Amputation: No Fractures: No - *Social History Smoking Status: Never smoker Alcohol Intake: never Substance Use Type: denies use *Occupational Status:: retired Housing: house Household Members: spouse *Travel in the last 8 weeks: None Family Hx:: Cancer, Heart Attack
== END ==
PROVIDERS: PCP Family Medicine; Visit Provider Clinical Nurse Specialist Family Health
DX: M46.1 Sacroiliitis, not elsewhere classified (principal); M25.561 Pain in right knee
CPT/HCPCS: 99212; G0463

== ENCOUNTER → 2020-11-13 09:39 | Outpatient (CLI) | payer MEDICARE, OTHER, SELFPAY ==
--- NOTE | 2020-11-13 09:52 | XR_ITS ---
PROCEDURE: XR KNEE RT 4V CLINICAL INDICATION: 4 view standing COMPARISON: No exams were available for comparison FINDINGS: There is marked joint space narrowing medially with bone on bone appearance and mild eburnation of the medial tibial plateau. There is mild spurring of the tibial spines. There is mild narrowing of the patellofemoral space. There is no definite effusion. There is no fracture or loose body. IMPRESSION: Prominent degenerate change primarily involving the medial joint space Dictated by: Dr. Corey Huffman MD 11/13/2020 11:35 Dr. Corey Huffman MD in [place] 11/13/2020 11:35
== END ==
PROVIDERS: PCP Family Medicine; Visit Provider Orthopaedic Surgery
DX: M25.562 Pain in left knee (principal)
CPT/HCPCS: 73564

== ENCOUNTER → 2020-12-05 13:34 | Outpatient (CLI) | payer MEDICARE, OTHER, SELFPAY ==
[2020-12-05 14:19] LABS: Basophils # 0.1 K/mm3 (0-0.2); Basophils % 0.6 % (0.1-2.0); Eosinophils # 0.3 K/mm3 (0.0-0.4); Eosinophils % 3.2 % (0.1-12.0); Hematocrit 45.4 % (42.0-52.0); Hemoglobin 15.1 g/dL (14.1-18.0); Lymphocytes # 2.1 K/mm3 (0.7-4.5); Lymphocytes % 25.5 % (10-50); Mean Corpuscular HGB Conc 33.3 g/dL (31.8-35.4); Mean Corpuscular Hemoglobin 29.8 pg (27.0-31.2); Mean Corpuscular Volume 89.5 fl (80-94); Mean Platelet Volume 10.2 fl (7.4-10.4); Monocytes # 0.5 K/mm3 (0.1-1.0); Monocytes % 6.1 % (1.7-9.3); Neutrophils # 5.3 K/mm3 (1.8-7.8); Neutrophils % 64.6 % (37.0-80.0); Platelet Count 218 K/mm3 (142-424); Red Blood Count 5.08 M/mm3 (4.60-6.20); White Blood Count 8.2 K/mm3 (4.8-10.8)
[2020-12-05 14:59] LABS: Chloride 105 mmol/L (98-107); Potassium 4.6 mmoL/L (3.5-5.1); Sodium 139 mmol/L (136-145)
[2020-12-05 15:02] LABS: Anion Gap 14.6 mEq/L (5-15); Blood Urea Nitrogen 20 mg/dl (9-20); Calcium 9.5 mg/dl (8.4-10.2); Carbon Dioxide 24 mmol/L (22.0-30.0); Estimated Glomerular Filt Rate 93 ml/min (>60); GFR (African American) 112 ML/MIN (>60); Glucose 123 mg/dl (74-100)
== END ==
PROVIDERS: Visit Provider Anesthesiology
DX: Z01.818 Encounter for other preprocedural examination (principal); Z11.52 Encounter for screening for COVID-19; M46.1 Sacroiliitis, not elsewhere classified
CPT/HCPCS: 36415; 80048; 85025; U0003

== ENCOUNTER 2020-12-07 09:55 | Day surgery (SDC) | payer MEDICARE, OTHER, SELFPAY ==
[2020-12-07 10:08] VITALS: BP 168/72; PULSE 66; RESP 18; TEMP 36.5; O2SAT 98; BMI 23.3
[2020-12-07 10:42] VITALS: BP 175/82; PULSE 66; RESP 18; O2SAT 98
[2020-12-07 10:45] VITALS: BP 175/85; PULSE 74; RESP 18; O2SAT 98
--- NOTE | 2020-12-07 10:55 | HMH.PMPROC ---
- Procedure Date: 12/07/20 Time: 10:55 Anesthesiologist:: Ron Jimenez MD Complications:: None Pre-procedure Diagnosis:: Sacroiliitis Post-procedure Diagnosis:: Same Indications for Procedure:: This patient is a pleasant 80-year-old white male who we are treating for sacroiliitis. He did have a right genicular RFA and he did not get much long-term relief from this RFA. He does have chronic sacroiliitis he was set up for right SI joint stabilization however he is scheduled to have aortic valve replacement. We are clarifying this with his photographic equipment technician. We will hold on his surgery until we get clearance from his photographic equipment technician. Today his left side is hurting more than the right side. He does have a positive Silvia's test on the left side. He has a positive Talha test on the left side. He has positive SI joint compression test on left side. We will plan a left SI joint injection under fluoroscopy today to help with pain symptoms. Procedure Details:: Left SI joint injection under fluoroscopy Informed consent was obtained and the risks and benefits of the procedure was explained to the patient. Patient was taken to the procedure room. Patient was placed prone on the procedure table. The left hip was prepped using ChloraPrep. The skin and subcutaneous tissues were anesthetized using lidocaine. I placed a 22-gauge spinal needle into the inferior aspect of the left SI joint. Needle placement was confirmed with dye. After this we injected 5 mL bupivacaine 0.25% and Depo-Medrol 40 mg into the left SI joint. The patient tolerated the procedure well with no complication. Plan and Disposition:: We will follow-up with him in 2 weeks. Will reevaluate his symptoms at that time. We will also get clearance from his photographic equipment technician as to when he can have his SI joint stabilization procedure.
[2020-12-07 10:56] VITALS: BP 150/77; PULSE 66; RESP 20; O2SAT 98
== END 2020-12-07 10:57 | disposition home or self-care (01) ==
LOC: SC.PAINP 09:56
PROVIDERS: PCP Family Medicine; Visit Provider Anesthesiology
DX: M46.1 Sacroiliitis, not elsewhere classified (principal); I25.10 Atherosclerotic heart disease of native coronary artery without angina pectoris; I10 Essential (primary) hypertension; E78.5 Hyperlipidemia, unspecified; K21.9 Gastro-esophageal reflux disease without esophagitis
CPT/HCPCS: 27096; G0260; Q9966

== ENCOUNTER 2020-12-14 11:21 | Day surgery (SDC) | payer MEDICARE, OTHER, SELFPAY ==
[2020-12-14 11:32] VITALS: BP 115/70; BP 124/75; PULSE 74; PULSE 77; RESP 18; TEMP 36.4; O2SAT 96; BMI 22.8
[2020-12-14 12:04] VITALS: BP 115/89; PULSE 85; RESP 18; O2SAT 98
[2020-12-14 12:05] VITALS: BP 125/89; PULSE 86; RESP 18; O2SAT 98
--- NOTE | 2020-12-14 12:20 | HMH.PMPROC ---
- Procedure Date: 12/14/20 Time: 12:20 Anesthesiologist:: Ron Jimenez MD Complications:: None Pre-procedure Diagnosis:: Sacroiliitis Post-procedure Diagnosis:: Same Indications for Procedure:: Patient is a pleasant 80-year-old white male who we are treating for chronic sacroiliitis. He is scheduled for aortic valve replacement so we will await SI joint stabilization of his right SI joint. He presents today for RF ablation to the left SI joint as he has benefited from this previously on the left side. Procedure Details:: RF ablation to the left SI joint. Informed consent was obtained risk and benefits of the procedure were explained to the patient. Patient was taken to the procedure room. Left hip was prepped using ChloraPrep. The skin and subtenons tissues were anesthetized using lidocaine. 20-gauge RF needles were placed into the left SI joint inferior to superior a total of 4 needles were placed compassing the entire left SI joint. We underwent sensory stimulation. There is good sensory stimulation at 1 V. We underwent motor stimulation. There was no motor stimulation at 2.5 V. We then anesthetized the left SI joint with bupivacaine 0.25% and Depo-Medrol 40 mg. We then burned each needle let 80 ?C for 4 minutes. We burned all 4 needles encompassing the entire left SI joint. Patient tolerated the procedure well with no complications. Plan and Disposition:: We will follow-up with him in approximately 1 month. Will reevaluate his symptoms at that time.
== END 2020-12-14 12:25 | disposition home or self-care (01) ==
LOC: SC.PAINP 11:22
PROVIDERS: PCP Family Medicine; Visit Provider Anesthesiology
DX: M46.1 Sacroiliitis, not elsewhere classified (principal); I10 Essential (primary) hypertension; E78.5 Hyperlipidemia, unspecified; M19.90 Unspecified osteoarthritis, unspecified site
CPT/HCPCS: 64625; J1040

== ENCOUNTER → 2021-03-07 14:20 | Outpatient (POV) | payer MEDICARE, OTHER, SELFPAY ==
[2021-03-07 14:26] VITALS: BP 142/71; PULSE 84; RESP 18; TEMP 36.6; O2SAT 97; BMI 19.9
--- NOTE | 2021-03-07 14:32 | HMH.PAINSOAP ---
[facility] Pain Management SOAP Note Subjective:: Patient is an 80-year-old male who presents today for follow-up. The patient has been seen in her past for sacroiliitis. He was being worked up for an SI stabilization procedure, however, patient underwent open heart surgery with complications. The patient had bleeding postoperative and he spent weeks in the hospital at [facility]. 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 He now has significant deficits due to the stroke. He is currently undergoing physical therapy. He is having worsening bilateral low back pain worse to left low back, left buttock and left hip. He is having difficulty with ambulation with notable antalgic gait today. He is tender to palpation to his bilateral SI joints with a positive Silvia's, compression, distraction test today. Patient was taking oxycodone prescribed to him by Troy Adams following his surgical procedures. He does not have any more of the medication. He is having significant pain. We discussed low-dose [place] to take during his recovery phase. He would like to try this along with bilateral SI injections. 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 He does have notable changes in deficits today due to the acute complications following surgery. He does rate his pain and 8 out of 10 today. Review of Systems General: No recent weight changes, no fever, no sleep disturbances Respiratory: No cough, no shortness of air, no recurring pulmonary infections Cardiovascular/peripheral vascular: No chest pain, no palpitations, no edema, no shortness of breath Gastrointestinal: No new onset incontinence, normal bowel movements reported Genitourinary: No new onset incontinence Musculoskeletal: Bilateral low back pain worse to left low back, left hip pain, left leg pain, left buttock pain Psychiatric: [Normal mood/affect] Neurological: [Denies weakness in extremities], [denies balance issues] Objective:: Physical exam General: Alert and oriented x3, no acute distress, pleasant and cooperative, [on room air] Lungs: Respirations even and unlabored, symmetrical chest expansion Eyes: PERRL Musculoskeletal: Flexion and extension of [] lumbar [spine] somewhat guarded secondary to pain, strength in upper and lower extremities [5/5], [antalgic gait noted], positive Silvia's test, positive distraction test, positive compression test Neurological: Speech clear, [automotive assembler equal], no gross sensory deficit Assessment:: Sacroiliitis left Plan:: We will schedule the patient for bilateral SI joint injections. He is on anticoagulation therapy. He understands if the injections do not give him relief, we will be limited in further injective therapy due to anticoagulation therapy. Patient will not be able to hold his anticoagulation therapy due to recent strokes. He did take oxycodone immediately postoperative and during the recovery phase. We will order [place] 5 mg 1 tablet p.o. twice daily as needed pain for 1 month. We will schedule him for the bilateral SI injections for the a.m. He is in significant pain today with limited mobility. This is very different from the patient's normal activity. Risks and benefits of the medication have been explained in detail to the patient. The patient has been advised to consult with his/her primary care provider and pharmacist regarding drug-drug interaction of medications currently prescribed. Risks and benefits of the procedure have been explained to the patient. Patient would like to proceed with the procedure. Patient has been instructed to contact the clinic with any concerns before the next appointment. Dr. Jimenez has reviewed this note and agrees with this plan of care. This note was dictated using voice recognition software and make contain errors or omissions. Patient has been prescribed a controlled substance after being counseled on the medication, medication safety, and possible side effects.
== END ==
PROVIDERS: PCP Family Medicine; Visit Provider Clinical Nurse Specialist Family Health
DX: M46.1 Sacroiliitis, not elsewhere classified (principal)
CPT/HCPCS: 99212; G0463

== ENCOUNTER 2021-03-08 09:58 | Day surgery (SDC) | payer MEDICARE, OTHER, SELFPAY ==
[2021-03-08 10:10] VITALS: BP 158/74; PULSE 91; RESP 22; TEMP 36.8; O2SAT 95; BMI 19.8
[2021-03-08 10:29] VITALS: BP 157/87; PULSE 84; RESP 18; O2SAT 96
[2021-03-08 10:33] VITALS: BP 180/81; PULSE 83; RESP 18; O2SAT 97
--- NOTE | 2021-03-08 10:50 | HMH.PMPROC ---
- Procedure Date: 03/08/21 Time: 10:50 Anesthesiologist:: Ron Jimenez MD Complications:: None Pre-procedure Diagnosis:: Sacroiliitis Post-procedure Diagnosis:: Same Indications for Procedure:: Patient is a pleasant 80-year-old white male who we have been treating for chronic bilateral sacroiliitis. He did have aortic valve surgery with some complications after surgery with stroke and previous cardiac arrest on the table. He is rehabilitating from his surgery. He does have pain over both hips. He is tender over both SI joints. He does have a positive Silvia's test bilaterally. He has a positive Talha test bilaterally. He has positive SI joint compression test bilaterally. He has a positive distraction test bilaterally. We will do bilateral SI joint injections today to help him with his pain symptoms. He also may be a candidate for SI joint stabilization in the future when he can come off his blood thinners. Procedure Details:: B/L SI joint injection under fluoroscopy Informed consent was obtained and the risks and benefits of the procedure was explained to the patient. The patient was taken to the procedure room and placed prone on the procedure table. The patient was prepped using ChloraPrep. The skin and subcutaneous tissues overlying the SI joints were anesthetized using lidocaine. I placed a 22-gauge needle first in the left SI joint and second in the right SI joint. Needle placement was confirmed with dye. After this we injected 5 mL bupivacaine 0.25% and Depo-Medrol 40 mg into each SI joint. Patient tolerated the procedure well with no complication. Plan and Disposition:: We will follow-up with him in 2 weeks. Will reevaluate symptoms at that time.
[2021-03-08 10:56] VITALS: BP 162/74; PULSE 80; RESP 20; O2SAT 95
== END 2021-03-08 10:59 | disposition home or self-care (01) ==
LOC: SC.PAINP 10:00
PROVIDERS: PCP Family Medicine; Visit Provider Anesthesiology
DX: M46.1 Sacroiliitis, not elsewhere classified (principal); I10 Essential (primary) hypertension; Z86.73 Personal history of transient ischemic attack (TIA), and cerebral infarction without residual deficits
CPT/HCPCS: 27096; G0260; J1030; Q9966

== ENCOUNTER → 2021-03-11 10:55 | Outpatient (CLI) | payer MEDICARE, OTHER, SELFPAY ==
--- NOTE | 2021-03-11 11:02 | FL_ITS ---
PROCEDURE: FL BARIUM SWALLOW MODIFIED CLINICAL INDICATION: DYSPHAGIA COMPARISON: No exams were available for comparison TECHNIQUE: Patient administered varying consistencies of barium contrast, while viewed in lateral position under real-time fluoroscopy with cine recording. FLUOROSCOPY TIME:2.23 minutes The study was performed in conjunction with speech pathologist. Please see that report & recommendations. FINDINGS: Patient was given varying consistencies of barium. No aspiration or penetration. There is mild residual with multiple consistencies which clears with thin wash. There was difficulty in swallowing a pill which required 3 attempts.. IMPRESSION: Mild residual within the vallecula and piriform sinuses. No aspiration or penetration Please see speech pathologist report and recommendations. Dictated by: Grey Viveros MD 03/11/2021 17:32 Grey Viveros MD in [place] 03/11/2021 17:32
--- NOTE | 2021-03-11 13:27 | HMH.SLMBS2 ---
Speech & Language Evaluation Speech/Language Mod Barium Swallow Start: 03/11/21 13:11 Freq: once Status: Complete Protocol: Document 03/11/21 13:11 LAUREN (Rec: 03/11/21 13:26 LAUREN [id number]) General Information General Current Food Consistancy NPO,Other Dentition Good Dentition Comment: Tube feedings Oxygen Status Room Air Facial Symmetry Asymmetrical Patient Orientation Person,Place,Time,Situation Ability to Follow Directions Excellent Communication Ability No Impairment MBS Recommendations Diet Dietary Recommendations Regular,Thin Liquids Mod Barium Swallow Impressions Summary and Impressions Oral Phase Impression No Impairment (WFL) Oral Phase Summary Francesco Adorno was given the following consistencies: thin via straw and open cup, puree, pudding, mechanical soft, regular solid, mixed consistency, and pill with a thin wash. No oral phase impairments noted. Pharyngeal Phase Impression Mild Impairment Pharyngeal Phase Summary Mild pharyngeal wall residue with puree, pudding, mechanical soft, and regular solid. Residue cleared with a thin wash. Mild vallecular and pyriform residue with mechanical soft and moderate residue with regular solid, which cleared with thin wash x2. Vallecular residue with pill required three thin washes. No penetration or aspiration was noted on the study. Speech/Language MBS Assessment/Goals/Plan Assessment Date of Evaluation: 03/11/21 Evaluation Type Initial Certification Assessment/Problems Determine least restrictive diet. Does Patient Qualify for Service Yes Qualify/Failure Comment Francesco would benefit from skilled speech therapy services to address pharyngeal wall residue. Recommendations PHYSICIAN CERTIFICATION: The specified therapy services are required, authorized, and reviewed every 30 days. Pt will be seen # times/week 1 for # weeks 8 Diet Recommendations Normal Liquid Type Recommendations Normal/Thin SL Swallow Guidelines Alt bite w/sip thr
== END ==
PROVIDERS: PCP Family Medicine; Visit Provider Family Medicine
DX: I69.391 Dysphagia following cerebral infarction (principal)
CPT/HCPCS: 70371; 92611

== ENCOUNTER → 2021-03-13 12:52 | Outpatient (CLI) | payer MEDICARE, OTHER, SELFPAY | PROVIDERS: Visit Provider Urology | DX: N13.8 Other obstructive and reflux uropathy (principal); N40.1 Benign prostatic hyperplasia with lower urinary tract symptoms; Z20.822 Contact with and (suspected) exposure to COVID-19 | CPT/HCPCS: U0003 ==

== ENCOUNTER 2021-03-15 08:25 | Day surgery (SDC) | payer MEDICARE, OTHER, SELFPAY ==
[2021-03-12 15:02] VITALS: BMI 19.8
[2021-03-15 08:44] VITALS: BP 167/92; PULSE 89; RESP 20; TEMP 36.9; O2SAT 98
[2021-03-15 10:05] VITALS: BP 127/71; PULSE 73; RESP 18; TEMP 36.8; O2SAT 95
[2021-03-15 10:15] VITALS: BP 127/71; PULSE 73; RESP 18; O2SAT 95
--- NOTE | 2021-03-15 12:35 | HMH.OPNOTE ---
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 His catheter was removed in my office a couple weeks ago and patient states that he has been able to void and has been catheterizing intermittently with large residuals. Operative findings:: The bladder shows chronic obstructive changes with severe trabeculation and cellule formation. The ureteral orifices are well away from the bladder neck however and there is a large adenoma projecting into the bladder from the right side of the prostate but not a significant median lobe. Prostatic urethra itself showed moderate coaptation. Operative note:: Patient taken to the cystoscopy suite after informed consent was obtained. On the stretcher he was prepped and draped in the standard surgical fashion and 2% lidocaine placed into the urethra and the urethra clamped for 5 minutes. After 5 minutes the clamp removed and the flexible cystoscope introduced into the urethral meatus. Passed to the prostatic urethra which showed some moderate hyperplasia of the prostate. The bladder was entered and examined in a systematic fashion. There was evidence of severe trabeculation and cellule formation. No mucosal abnormalities were noted. The ureteral orifices were well away from the bladder neck. The scope was retroflexed showing adenomatous prostatic tissue emanating from the right side of the prostate but not the median lobe. The scope removed. The patient tolerated the procedure well and no complications. We discussed the findings today and he is currently on Plavix due to his recent heart procedures and he cannot go off of that for least 6 months. We discussed possible TUR versus UroLift procedure. He will return in June at which time we will rediscuss any surgical options. We did discuss the chronic bladder changes and the fact that his bladder may have decompensated over time and may not empty well even if obstruction is resolved. I recommended that the catheterize himself at least twice a day unless his residuals are less than 300 cc. Condition: stable Disposition: same day Specimens:: None Complications:: None
== END 2021-03-15 10:16 | disposition home or self-care (01) ==
LOC: OUTP 08:26
PROVIDERS: PCP Family Medicine; Visit Provider Urology
DX: N40.1 Benign prostatic hyperplasia with lower urinary tract symptoms (principal); R33.8 Other retention of urine; Z79.899 Other long term (current) drug therapy; K21.9 Gastro-esophageal reflux disease without esophagitis; E78.5 Hyperlipidemia, unspecified; I11.0 Hypertensive heart disease with heart failure; I50.9 Heart failure, unspecified; M19.90 Unspecified osteoarthritis, unspecified site; Z86.73 Personal history of transient ischemic attack (TIA), and cerebral infarction without residual deficits
CPT/HCPCS: 52000

== ENCOUNTER → 2021-03-27 12:10 | Outpatient (CLI) | payer MEDICARE, OTHER, SELFPAY ==
[2021-03-27 12:34] LABS: Basophils # 0.1 K/mm3 (0-0.2); Basophils % 0.7 % (0.1-2.0); Eosinophils # 0.1 K/mm3 (0.0-0.4); Eosinophils % 0.8 % (0.1-12.0); Hemoglobin 13.9 g/dL (14.1-18.0); Lymphocytes # 1.5 K/mm3 (0.7-4.5); Lymphocytes % 17.6 % (10-50); Mean Corpuscular HGB Conc 32.3 g/dL (31.8-35.4); Mean Corpuscular Hemoglobin 27.6 pg (27.0-31.2); Mean Corpuscular Volume 85.5 fl (80-94); Mean Platelet Volume 10.2 fl (7.4-10.4); Monocytes # 0.5 K/mm3 (0.1-1.0); Monocytes % 6.4 % (1.7-9.3); Neutrophils # 6.2 K/mm3 (1.8-7.8); Neutrophils % 74.4 % (37.0-80.0); Platelet Count 224 K/mm3 (142-424); Red Blood Count 5.03 M/mm3 (4.60-6.20); Red Cell Distribution Width 14.5 % (11.5-17.5); White Blood Count 8.3 K/mm3 (4.8-10.8)
[2021-03-27 20:06] LABS: Chloride 105 mmol/L (98-107); Sodium 139 mmol/L (136-145)
[2021-03-27 20:07] LABS: Potassium 4.7 mmoL/L (3.5-5.1)
[2021-03-27 20:09] LABS: Blood Urea Nitrogen 20 mg/dl (9-20); Estimated Glomerular Filt Rate 93 ml/min (>60); GFR (African American) 112 ML/MIN (>60)
[2021-03-27 20:10] LABS: Anion Gap 15.7 mEq/L (5-15); Calcium 9.5 mg/dl (8.4-10.2); Carbon Dioxide 23 mmol/L (22.0-30.0); Glucose 101 mg/dl (74-100)
== END ==
PROVIDERS: Visit Provider Anesthesiology
DX: Z01.812 Encounter for preprocedural laboratory examination (principal); Z20.822 Contact with and (suspected) exposure to COVID-19
CPT/HCPCS: 36415; 80048; 85025; U0003

== ENCOUNTER 2021-03-29 07:25 | Day surgery (SDC) | payer MEDICARE, OTHER, SELFPAY ==
[2021-03-26 09:27] VITALS: BMI 19.8
[2021-03-29] VITALS (11 sets, daily range): BP systolic 132–158; BP diastolic 68–113; PULSE 78–90; RESP 16–18; TEMP 36.1–36.9; O2SAT 93–100
--- NOTE | 2021-03-29 10:08 | P.PN_ITS ---
[facility] Anesthesia Checklist - Patient Identification Patient Identification: Arm Band - Structural Data Admitted From: Home Planned Operative Procedure/s: Sacroiliac Joint Stabilization under Fluoroscopy Consent for Planned Operative Procedure(s) Verified: Yes Verified Documents: Surgical Consent, History and Physical - NPO Status Verified Time NPO: 00:00 - Additional verifications Anesthesia Reactions: No Hx Blood Transfusions: No Blood Transfusion Reaction: No - Airway Assessment C-Spine Mobility Assessed: Yes (mp2) TMJ Mobility Assessed: Yes Dentition: Good Dentition - Neurological Assessment Level of Consciousness: Awake, Alert - Anesthesia Plan Anesthesia Risk discussed: Yes Anesthesia Plan: Verified ASA Class: III Anesthesia Type: General [facility] History I have reviewed the patient's past medical history: Yes Medical History: Reports:: Arrhythmia, Carotid Stenosis, Congestive Heart Failure, Coronary Artery Disease, Cerebrovascular Accident, Gastroesophageal R eflux Disease(GERD), Heart Murmur, Hyperlipidemia, Hypertension, Transient Ischemic Attacks (TIA), Valvular Heart Disease Denies:: Cancer, Diabetes Mellitus Type 1, Diabetes Mellitus Type 2, Internal Pacemaker, Lung Disease, MRSA, Seizures *Have you ever received a pneumonia vaccine?: Yes *Have you received a flu vaccine this season?: Yes Other Medical History: Reports: Arthritis, Liver Disease. Denies: Blood Transfusion Reaction Anesthesia experience/problems:: nac Other Surgeries: Yes: Cancer Surgery, Cardiac Catheterization, Cardiac Surgery, Cholecystectomy, Colonoscopy, Colon Resection, EGD, Hernia Repair, Open Heart Surgery, Other Valve Replacement, Other. No: Pacemaker Amputation: No Fractures: No - *Social History Last grade of school completed: High school graduate Smoking Status: Never smoker Alcohol Intake: never Substance Use Type: denies use *Occupational Status:: employed Housing: house Household Members: spouse *Travel in the last 8 weeks: None Family Hx:: Cancer, Heart Attack
--- NOTE | 2021-03-29 10:23 | P.OP_ITS ---
Date of procedure: 03/29/21 Pre-op Diagnosis:: Sacroiliitis chronic Post-op Diagnosis:: Same Procedure performed:: Left SI joint stabilization with Corner[place] Surgeon:: Ron Jimenez MD MEDICAL TECHNOLOGIST MICROBIOLOGY:: Jr Wyatt Anesthesia: GETA Estimated blood loss (mL): 10 Clinical Note:: Patient is a pleasant 80-year-old white male who we are treating for chronic sacroiliitis. He only gets temporary relief with SI joint injections. He is 80 to 90% better for several weeks however these have not been long-lasting. He presents for left SI joint stabilization today. Operative findings:: None Operative note:: Informed consent was obtained and the risk and benefits of the procedure was explained to the patient. Patient was taken to the operating room placed prone on the procedure table. Patient was prepped and draped in sterile fashion. A lateral view of the sacrum with C-arm was taken to make sure it was out of anteversion. We then did an oblique view of the left sacroiliac joint. We lined up the anterior and posterior sides of the joint to achieve a Leon . A line was drawn on the skin with the SI joint. The superior and inferior aspect of the joint were anesthetized using lidocaine. The superior and inferior aspect of the joint were marked off. 1 cm medial and 1 cm superiorly into the upper quadrant and 1 cm medial and 1 cm distal a 1 1/2 cm longitudinal incisions were made through the skin and subcutaneous tissues. Guidepins were then placed superior and inferior at a 90 degree angle to each other under C-arm guidance through the incision was made into the superior third and inferior third of the SI joint. Lateral C-arm view was then taken to check the depth of the pins into the SI joint. On the lateral view the joint finder was placed over the guidepin into the appropriate position. The working cannula retractor was then placed over the joint finder into the SI joint into the appropriate position and depth. The joint finder and guidepin were removed. The SI joint was drilled to remove cartilage and to get into the subchondral bone of the sacrum and ilium. The broach was then used to prepare a triangular groove into both the sacrum and ilium for insertion of stabilization grafts. A collagen spine was then placed into the prepared space and the stabilization graft was placed. This was done both superiorly inferiorly into the SI joint. The cannulated retractor was removed. The incisions were then closed with 2-0 Vicryl followed by apples and 4-0 nylon. Dressings were placed and the patient was taken recovery in stable condition. Patient tolerated the procedure well with no complications. Patient was discharged home with some soreness however good relief of his SI joint symptoms and neurologically intact. We will put him on some Rhodes postoperatively 5 mg 1 tablet every 4 to 6 hours I will give him 20 tablets for postoperative pain. We will also give him Bactrim DS postoperatively for antibiotics for 5 days. Plan and disposition: We will follow-up with him in 1 week for wound check. We will reevaluate his symptoms at that time. Condition: stable Disposition: PACU Complications:: None
--- NOTE | 2021-03-29 10:33 | P.PN_ITS ---
[facility] Anesthesia Record Part I Intake, IV Amount: 800 Estimated blood loss (mL): 5 Urine output (mL): 0 Blood Pressure: 144/76 SaO2: 94 Pulse Rate: 90 Respiratory Rate: 16 Temperature: 98.4 F Patient is:: Drowsy, Stable Stable to PACU at:: 10:30
--- NOTE | 2021-03-29 13:58 | P.PN_ITS ---
[facility] Anesthesia Record Part II Discharge Time: 11:00 Destination: Surgical Day Care (OP Surgery) PACU nurse assessment reviewed?: Yes Patient Condition:: Good Anesthesia Complications:: None Swallowing reflex intact?: Yes Cyanosis?: No Blood Pressure: 147/85 Pulse Rate: 82 Temperature: 97.5 F Mental Status: Alert & Oriented Pain level:: 0 Nausea and/or vomitting:: None Intake, IV Amount: 0
== END 2021-03-29 11:40 | disposition home or self-care (01) ==
LOC: OR 07:27
PROVIDERS: PCP Family Medicine; Visit Provider Anesthesiology
DX: M46.1 Sacroiliitis, not elsewhere classified (principal)
CPT/HCPCS: 27279; 96374; C1713; J2405; J2710; J3370

== ENCOUNTER 2021-03-30 17:46 | Emergency (ER) | payer MEDICARE, OTHER, SELFPAY ==
[2021-03-30 17:47] VITALS: BP 151/83; PULSE 82; RESP 22; TEMP 37.1; O2SAT 98; BMI 19.8
--- NOTE | 2021-03-30 18:00 | ECG_ITS ---
APPROVED REPORT Exam: Resting ECG HR:85 bpm ECG Measurements Heart Rate 85 AXES OK 152 P 51 QRSd 168 QRS -43 QT 416 T 114 QTc 495 Conclusion Normal sinus rhythm Possible Left atrial enlargement Left axis deviation Left bundle branch block Abnormal ECG Electronically signed by : Jarvis Paz MD 04/01/2021 20:42:20
--- NOTE | 2021-03-30 18:00 | XR_ITS ---
PROCEDURE INFORMATION: Exam: XR Chest Exam date and time: 03/30/2021 6:00 PM Age: 80 years old Clinical indication: Angina and shortness of breath; Additional info: SOB TECHNIQUE: Imaging protocol: XR of the chest. Views: 1 view. COMPARISON: CR XR CHEST 2V 09/22/2020 2:02 AM FINDINGS: Lungs: In the lung bases there is mild atelectasis. COPD. Pleural spaces: Unremarkable. No pleural effusion. No pneumothorax. Heart/Mediastinum: Cardiomegaly. Bones/joints: Midline sternotomy. IMPRESSION: No acute findings.
--- NOTE | 2021-03-30 18:01 | HMH.EDGENADL ---
ED Disposition Clinical Impression: Shortness of breath, Cystitis Dysphagia Qualifiers: Dysphagia type: unspecified Qualified Code(s): R13.10 - Dysphagia, unspecified Disposition: Home, Self-Care Condition on Discharge: Good Additional Instructions: Take antibiotic as prescribed for urinary tract infection. Follow-up with your primary care doctor next week. Additional instructions for SHORTNESS OF BREATH: See your physician as soon as possible for further evaluation. Return immediately if worsening shortness of breath or if vomiting, chest pain, fever, coughing of blood, or passing out. Additional instructions for URINARY TRACT INFECTION: Take antibiotic as prescribed. See your physician in 2-3 days for follow up and culture results. Return immediately if you have an uncontrollable fever greater than 102 degrees, severe back or abdominal pain, inability to urinate, or repetitive vomiting. Prescriptions: Ciprofloxacin HCl [Cipro 500mg Tab] 500 mg PO BID #20 tab Transmission Status: Pending to [id number] Referrals: Beltran Batista MD [Primary Care Provider] - - Critical Care Critical Care Time: No Attestation: On 03/30/21, the high probability of a clinically significant, sudden or life threatening deterioration of the following system(s) required my full and direct attention, intervention and personal management. The time I documented below is in addition to time spent performing reported procedures but includes the following listed in this critical care notation. Medical Decision Making - Medical Records Medical records reviewed: Yes: I reviewed the patient's medical records. MR Comment: Reviewed recent barium swallow study, see result below. Reviewed recent office note from Dr. Gregory 03/19/2021, ENT, visit for difficulty swallowing. - [place] Inquiry Pt receiving controlled substance: No Vital Signs: 03/30/21 17:47 Temperature 98.7 F Temperature Source Oral Pulse Rate [Radial] 82 Respiratory Rate 22 Blood Pressure [Right Radial Artery] 151/83 H Blood Pressure Mean [Right Radial Artery] 105 Blood Pressure Position [Right Radial Artery] Sitting 02 Sat by Pulse Oximetry 98 Oxygen Delivery Method Room Air - Lab Data Lab Results 03/30/21 17:55: WBC 10.7, RBC 4.68, Hgb 12.9 L, Hct 40.2 L, MCV 86.0, MCH 27.6, MCHC 32.1, RDW 14.8, Plt Count 172, MPV 10.2, Neut % (Auto) 74.4, Lymph % (Auto) 18.4, [place] % (Auto) 6.4, Eos % (Auto) 0.4, Baso % (Auto) 0.5, Neut # (Auto) 8.0 H, Lymph # (Auto) 2.0, [place] # (Auto) 0.7, Eos # (Auto) 0.0, Baso # (Auto) 0.1 03/30/21 17:55: Sodium 138, Potassium 4.4, Chloride 102, Carbon Dioxide 26, Anion Gap 14.4, BUN 22 H, Creatinine 1.00, Estimated Creat Clear 48, Estimated GFR 72, Est GFR ( Amer) 87, Glucose 109 H, Calcium 9.3, Total Bilirubin 0.6, AST 38, ALT 30, Alkaline Phosphatase 95, Troponin I 0.01, Total Protein 7.2, Albumin 4.1, Globulin 3.1, Albumin/Globulin Ratio 1.3 03/30/21 17:55: D-Dimer 1.35 H 03/30/21 17:55: NT-Pro-B Natriuret Pep 882 H 03/30/21 18:32: SARS-CoV-2 (PCR) Not detected, Influenza A Untype (PCR) Not detected, Influenza Type B (PCR) Not detected 03/30/21 19:29: Urine Color Straw, Urine Appearance Sl cloudy, Urine pH 6.0, Ur Specific [place] 1.010, Urine Protein Negative, Urine Glucose (UA) Negative, Urine Ketones Negative, Urine Blood Negative, Urine Nitrate Negative, Urine Bilirubin Negative, Urine Urobilinogen 0.2, Ur Leukocyte Esterase 1+ A, Urine WBC 20-50, Ur Squamous Epith Cells Occasional, Urine Bacteria Trace Result diagrams: 03/30/21 17:55 03/30/21 17:55 Orders (Tests/Meds): ED MEDICATIONS Discontinued Medications Generic Name Dose Route Start Last Admin Trade Name Freq PRN Reason Stop Dose Admin Iopamidol 70 ml 03/30/21 19:33 03/30/21 19:34 Iopamidol-370 (76%);100ml Bottle IV 03/30/21 19:34 70 ml ONCE ONE Administration Sodium Chloride 50 ml 03/30/21 19:33 03/30/21 19:33 0.9 % Sodium C
[2021-03-30 18:11] LABS: Basophils # 0.1 K/mm3 (0-0.2); Basophils % 0.5 % (0.1-2.0); Eosinophils % 0.4 % (0.1-12.0); Hematocrit 40.2 % (42.0-52.0); Hemoglobin 12.9 g/dL (14.1-18.0); Lymphocytes % 18.4 % (10-50); Mean Corpuscular HGB Conc 32.1 g/dL (31.8-35.4); Mean Corpuscular Hemoglobin 27.6 pg (27.0-31.2); Mean Platelet Volume 10.2 fl (7.4-10.4); Monocytes # 0.7 K/mm3 (0.1-1.0); Monocytes % 6.4 % (1.7-9.3); Neutrophils % 74.4 % (37.0-80.0); Platelet Count 172 K/mm3 (142-424); Red Blood Count 4.68 M/mm3 (4.60-6.20); Red Cell Distribution Width 14.8 % (11.5-17.5); White Blood Count 10.7 K/mm3 (4.8-10.8)
[2021-03-30 18:12] LABS: Chloride 102 mmol/L (98-107); Sodium 138 mmol/L (136-145)
[2021-03-30 18:13] LABS: Potassium 4.4 mmoL/L (3.5-5.1)
[2021-03-30 18:15] LABS: Alanine Aminotransferase 30 U/L (12-78); Albumin Level 4.1 g/dl (3.5-5.0); Albumin/Globulin Ratio 1.3 (1.1-1.8); Alkaline Phosphatase 95 U/L (38-126); Anion Gap 14.4 mEq/L (5-15); Aspartate Amino Transferase 38 U/L (17-59); Bilirubin,Total 0.6 mg/dl (0.2-1.3); Blood Urea Nitrogen 22 mg/dl (9-20); Carbon Dioxide 26 mmol/L (22.0-30.0); Creatinine Clearance Estimated 48 mL/min (50-200); Estimated Glomerular Filt Rate 72 ml/min (>60); GFR (African American) 87 ML/MIN (>60); Globulin 3.1 g/dL (1.3-3.2); Total Protein,Serum 7.2 g/dl (6.3-8.2)
[2021-03-30 18:16] LABS: Calcium 9.3 mg/dl (8.4-10.2); Glucose 109 mg/dl (74-100)
[2021-03-30 18:29] LABS: Troponin I 0.01 ng/ml (0.00-0.034)
[2021-03-30 18:33] LABS: D-Dimer 1.35 ug/mL (0.0-0.5)
[2021-03-30 18:39] LABS: NT Pro Brain Natriuretic Pep. 882 pg/mL (0-450)
[2021-03-30 18:41] LABS: Coronavirus 19, PCR Not Detected (NotDetected); Influenza A, PCR Not Detected (NotDetected); Influenza B, PCR Not Detected (NotDetected)
--- NOTE | 2021-03-30 18:47 | CT_ITS ---
PROCEDURE INFORMATION: Exam: CTA Chest With Contrast Exam date and time: 03/30/2021 6:47 PM Age: 80 years old Clinical indication: Shortness of breath; Prior surgery; Surgery date: 6+ months; Additional info: SOA, elev d-dimer, R/O pe, HX of back surgery yesterday TECHNIQUE: Imaging protocol: Computed tomographic angiography of the chest with contrast. 3D rendering (Not supervised by radiologist): MIP and/or 3D reconstructed images were created by the technologist. Radiation optimization: All CT scans at this facility use at least one of these dose optimization techniques: automated exposure control; mA and/or kV adjustment per patient size (includes targeted exams where dose is matched to clinical indication); or iterative reconstruction. Contrast material: ISOVUE; Contrast volume: 70 ml; Contrast route: INTRAVENOUS (IV); COMPARISON: CR XR CHEST PORTABLE 03/30/2021 6:16 PM FINDINGS: Tubes, catheters and devices: Multiple sternal cerclage wires are in place. Pulmonary arteries: Normal. No pulmonary emboli. Aorta: There is mild calcific atherosclerotic disease of the thoracic aorta without aneurysmal dilatation. Lungs: Dependent bilateral lung base opacities favor atelectasis. Pleural spaces: Unremarkable. No pneumothorax. No pleural effusion. Heart: Postsurgical changes compatible with aortic valve replacement. Mediastinal space: A small sliding hiatal hernia is present. Lymph nodes: Unremarkable. No enlarged lymph nodes. Gallbladder and bile ducts: There are surgical clips within the gallbladder fossa. Bones/joints: Unremarkable. No acute fracture. Soft tissues: Unremarkable. IMPRESSION: No CT angiography evidence of pulmonary embolism.
[2021-03-30 19:49] LABS: Microscopic, Urine URINE MICROSCOPIC (MICROSCOPIC)
[2021-03-30 19:50] LABS: Appearance,Urine SL CLOUDY (Clear); Bilirubin,Urine Negative (Negative); Blood, Urine Negative (Negative); Color,Urine STRAW (Yellow); Glucose,Urine (UA) Negative (Negative); Ketones,Urine Negative (Negative); Leukocyte Esterase,Urine 1+ (Negative); Nitrate,Urine Negative (Negative); Protein,Urine Negative (Negative); Urobilinogen,Urine 0.2 EU/dl (0.2)
[2021-03-30 19:56] LABS: WBC,Urine 20-50 #/hpf (0-3)
[2021-03-30 19:57] LABS: Bacteria,Urine Trace /lpf; Squamous Epithelial Cell,Urine Occasional #/hpf (0-5)
[2021-03-30 20:34] VITALS: BP 149/72; PULSE 79; RESP 20; TEMP 37.1; O2SAT 99
== END 2021-03-30 20:36 | disposition home or self-care (01) ==
PROVIDERS: Emergency Provider Emergency Medicine; PCP Family Medicine
DX: N30.90 Cystitis, unspecified without hematuria (principal); B96.89 Other specified bacterial agents as the cause of diseases classified elsewhere; R13.10 Dysphagia, unspecified; I10 Essential (primary) hypertension; E78.5 Hyperlipidemia, unspecified; Z95.2 Presence of prosthetic heart valve; I25.10 Atherosclerotic heart disease of native coronary artery without angina pectoris; Z86.73 Personal history of transient ischemic attack (TIA), and cerebral infarction without residual deficits; K21.9 Gastro-esophageal reflux disease without esophagitis; Z79.899 Other long term (current) drug therapy
CPT/HCPCS: 71045; 71275; 80053; 81001; 83880; 84484; 85025; 85378; 87086; 87088; 87186; 93005; 99284; Q9967; U0003

== ENCOUNTER 2021-04-02 16:41 | Emergency (ER) | payer MEDICARE, OTHER, SELFPAY ==
[2021-04-02 16:42] VITALS: BP 132/75; PULSE 101; RESP 20; TEMP 36.4; O2SAT 94; BMI 19.8
--- NOTE | 2021-04-02 17:10 | HMH.EDABDPAI ---
ED Disposition Clinical Impression: Constipation Qualifiers: Constipation type: drug induced constipation Qualified Code(s): K59.03 - Drug induced constipation Disposition: Home, Self-Care Condition on Discharge: Fair Instructions: DI for Acute Abdominal Pain Additional Instructions: Drink 1 bottle of magnesium citrate tomorrow if you continue to have symptoms. Follow-up with your primary care doctor if you do not improve in the next 2 days. Return to the emergency department if you feel worse in any way. Referrals: Beltran Batista MD [Primary Care Provider] - - Critical Care Critical Care Time: No Attestation: On , the high probability of a clinically significant, sudden or life threatening deterioration of the following system(s) required my full and direct attention, intervention and personal management. The time I documented below is in addition to time spent performing reported procedures but includes the following listed in this critical care notation. Medical Decision Making - Medical Records Medical records reviewed: Yes: I reviewed the patient's medical records. - [place] Inquiry Pt receiving controlled substance: No Vital Signs: 04/02/21 16:42 Temperature 97.6 F Temperature Source Tympanic Pulse Rate [Right Radial] 101 H Respiratory Rate 20 Blood Pressure [Right Arm] 132/75 Blood Pressure Mean [Right Arm] 94 Blood Pressure Source [Right Arm] Automatic Cuff Blood Pressure Position [Right Arm] Sitting 02 Sat by Pulse Oximetry 94 L Oxygen Delivery Method Room Air Orders (Tests/Meds): ED MEDICATIONS Discontinued Medications Generic Name Dose Route Start Last Admin Trade Name Freq PRN Reason Stop Dose Admin Ketorolac Tromethamine 60 mg 04/02/21 18:09 Ketorolac 60mg/2ml Vial IM 04/02/21 18:10 ONCE ONE Ketorolac Tromethamine 30 mg 04/02/21 18:11 Ketorolac 30mg/Ml Vial IV 04/02/21 18:12 ONCE ONE Ketorolac Tromethamine 30 mg 04/02/21 18:12 Ketorolac 30mg/Ml Vial IV 04/02/21 18:13 ONCE ONE - Radiology Data #1 Image(s): Abdomen Image Reviewed: Yes I reviewed the patient's radiology image, Yes I have reviewed radiologist's interpretation Preliminary Findings: Abnormal (constipation) Medical Decision Narrative: To hold the enema long enough for it to be effective. There does not seem to be any evidence of fecal impaction at this time. I suspect that the patient's constipation is secondary to narcotics that he has been prescribed for his recent sacral surgery. The patient will be discharged with a bottle of magnesium citrate to be taken tomorrow. Abdominal Pain HPI - General Chief Complaint: Abdominal Pain Stated Complaint: SOB,Weakness,Abd Pain Time Seen by Provider: 04/02/21 17:10 Source of Information: Patient - History of Present Illness HPI narrative: The patient presents to the emergency department complaining of abdominal pain and constipation. He also complains of rectal pain. He states that his gave him an enema without any success. The patient had a recent sacral surgery and is currently on Lortabs. Denies fever or vomiting. - Related Data Home Medications Medication Instructions Recorded Confirmed Atorvastatin Calcium [Atorvastatin 40 mg PO DAILY 02/22/19 03/30/21 40mg Tab] lisinopril 10 mg tablet 10 mg PO DAILY tab 02/20/20 03/30/21 amlodipine 5 mg tablet 5 mg PO DAILY tab 10/25/20 03/30/21 Bethanechol Chloride [Urecholine 10 mg PO DAILY 03/08/21 03/30/21 10mg tablet] Metoprolol/Hydrochlorothiazide 1 each PO DAILY 03/08/21 03/30/21 [Metoprolol-Hctz 50-25 mg Tab] Sulfamethoxazole/Trimethoprim 1 each PO BID 03/30/21 03/30/21 [Bactrim DS tablet] Previous Rx's Medication Instructions Recorded gabapentin 300 mg capsule See Rx Instructions PO BID #90 cap 10/25/20 Hydrocodone/Acetaminophen 1 each PO Q4-6H PRN #20 tab 03/29/21 [Hydrocodone-Acetamin 5-325 mg] Ciprofloxacin HCl [Cipro 500mg 500 m
--- NOTE | 2021-04-02 17:16 | XR_ITS ---
PROCEDURE INFORMATION: Exam: XR Complete Acute Abdomen Series Including Chest Exam date and time: 04/02/2021 5:16 PM Age: 80 years old Clinical indication: Prior surgery; Surgery date: 3-7 days post-operative; Surgery type: Back; Patient HX: Abdomen pain/ constipation; Post op 3 days; Additional info: Abdominal pain and constipation TECHNIQUE: Imaging protocol: XR complete acute abdomen series, including 2 or more views of the abdomen and a single view chest. Total images: 3 COMPARISON: CR XR CHEST PORTABLE 03/30/2021 6:16 PM FINDINGS: Lungs: Suspect moderate emphysematous changes. Pulmonary vasculature grossly normal. No infiltrates. Pleural spaces: No pleural effusion. No pneumothorax. Heart/Mediastinum: Heart size normal. Prior TAVR noted. No tracheal/mediastinal shift. Gastrointestinal tract: Nonobstructive bowel gas pattern. There is a moderate amount of stool distributed throughout the colon suggesting constipation. Paucity of small bowel gas limits small bowel assessment. Intraperitoneal space: No intraperitoneal free air is evident. Organs: Right upper quadrant surgical clips suggest prior cholecystectomy. Additional surgical clips projecting over the left mid abdominal region and central pelvis. No evidence of organomegaly. Vasculature: Moderate aortic ectasia/tortuosity and moderate calcific atherosclerosis. Bones/joints: Prior median sternotomy. No acute osseous abnormalities. Diffuse osteopenia. Moderate sclerosis in the SI joints which is nonspecific but may be degenerative in nature. Slight rightward convexity lumbar scoliosis. Soft tissues: No gross soft tissue masses. Other findings: No pathological calcifications. IMPRESSION: 1. There is a moderate amount of stool distributed throughout the colon suggesting constipation. Nonobstructive pattern. 2. No acute intrathoracic process. 3. Suspect COPD.
[2021-04-02 20:22] VITALS: BP 121/82; PULSE 94; RESP 20; TEMP 36.7; O2SAT 97
== END 2021-04-02 20:25 | disposition home or self-care (01) ==
PROVIDERS: Emergency Provider Emergency Medicine; PCP Family Medicine
DX: K59.00 Constipation, unspecified (principal); I10 Essential (primary) hypertension; I50.9 Heart failure, unspecified; I25.10 Atherosclerotic heart disease of native coronary artery without angina pectoris; K21.9 Gastro-esophageal reflux disease without esophagitis; E78.5 Hyperlipidemia, unspecified; Z79.899 Other long term (current) drug therapy
CPT/HCPCS: 74021; 96372; 99282

== ENCOUNTER → 2021-04-03 16:06 | Outpatient (CLI) | payer MEDICARE, OTHER, SELFPAY ==
[2021-04-03 16:06] VITALS: BP 125/69; PULSE 99; RESP 18; TEMP 36.9; O2SAT 96
[2021-04-03 16:53] VITALS: BP 89/53; PULSE 89; RESP 16; O2SAT 97; BMI 19.6
== END ==
PROVIDERS: PCP Family Medicine; Visit Provider Family Medicine
DX: R10.9 Unspecified abdominal pain (principal); R53.1 Weakness
CPT/HCPCS: 96360; 96361

== ENCOUNTER → 2021-04-10 10:26 | Outpatient (CLI) | payer MEDICARE, OTHER, SELFPAY ==
[2021-04-10 10:28] LABS: Coronavirus 19, PCR Not Detected (NotDetected); Influenza A, PCR Not Detected (NotDetected); Influenza B, PCR Not Detected (NotDetected)
== END ==
PROVIDERS: Visit Provider Surgery
DX: R13.10 Dysphagia, unspecified (principal); Z01.812 Encounter for preprocedural laboratory examination; Z11.52 Encounter for screening for COVID-19
CPT/HCPCS: C9803; U0003; U0005

== ENCOUNTER 2021-04-10 10:36 | Day surgery (SDC) | payer MEDICARE, OTHER, SELFPAY ==
[2021-04-10 11:03] VITALS: BP 133/68; PULSE 63; RESP 18; TEMP 36.2; O2SAT 99; BMI 19.1
--- NOTE | 2021-04-10 11:51 | P.PN_ITS ---
[facility] Anesthesia Checklist - Patient Identification Patient Identification: Arm Band, Verbal (Name & ) - Structural Data Admitted From: Home Planned Operative Procedure/s: peg placement Consent for Planned Operative Procedure(s) Verified: Yes Verified Documents: History and Physical - NPO Status Verified Time NPO: 00:00 - Chart Verification Results Verified: CBC, BMP - Additional verifications Patient : No Anesthesia Reactions: No Hx Blood Transfusions: No Blood Transfusion Reaction: No Cephalosporin Allergy: No Previous Colonoscopy: No - Cardiovascular Assessment Heart Sounds: S1 & S2 Pulse Strength: Baseline Pulse Rhythm: Regular Peripheral Edema: No - Airway Assessment C-Spine Mobility Assessed: Yes TMJ Mobility Assessed: Yes Dentition: Good Dentition - Neurological Assessment Level of Consciousness: Awake, Alert, Appropriate Hx Seizures: No Numbness or tingling in extremities: No - Anesthesia Plan Anesthesia Risk discussed: Yes Anesthesia Plan: Verified ASA Class: III Anesthesia Type: MAC [facility] History I have reviewed the patient's past medical history: Yes Medical History: Reports:: Arrhythmia, Cancer (colon), Carotid Stenosis, Congestive Heart Failure, Coronary Artery Disease, Cerebrovascular Accident, Gastroesophageal Reflux Disease(GERD), Heart Murmur, Hyperlipidemia, Hypertension, Transient Ischemic Attacks (TIA), Valvular Heart Disease Denies:: Diabetes Mellitus Type 1, Diabetes Mellitus Type 2, Internal Pacemaker, Lung Disease, MRSA, Seizures *Have you ever received a pneumonia vaccine?: Yes *Have you received a flu vaccine this season?: Yes Other Medical History: Reports: Arthritis, Chemotherapy, Liver Disease. Denies: Blood Transfusion Reaction Anesthesia experience/problems:: none Other Surgeries: Yes: CABG, Cancer Surgery, Cardiac Catheterization, Cardiac Surgery, Cholecystectomy, Colonoscopy, Colon Resection, EGD, Hernia Repair, Open Heart Surgery, Other Valve Replacement, Other. No: Pacemaker Amputation: No Fractures: No - *Social History Last grade of school completed: 11th or 12th Smoking Status: Never smoker Alcohol Intake: never Substance Use Type: denies use *Occupational Status:: retired Housing: house Household Members: spouse *Travel in the last 8 weeks: None Family Hx:: Cancer, Heart Attack
[2021-04-10 12:01] VITALS: O2SAT 97
--- NOTE | 2021-04-10 12:16 | SUR.OPER ---
20F STANDARD PEG PLACED PER DR UP WITHOUT DIFFICULTY. PT TOLERATED WELL.
--- NOTE | 2021-04-10 12:20 | SUR.OPER ---
PEG TUBE PLACED 3.5 AT THE SKIN.
--- NOTE | 2021-04-10 12:22 | P.PCN_ITS ---
- Procedure: Date: 04/10/21 Patient Date of :: 1940 Procedure Performed:: Placement of 20 Setswana pull-type PEG tube Indications:: Patient is an 80-year-old male referred by Dr. ROSELINE Batista for PEG tube replacement. Patient had undergone aortic valve surgery at [facility] on 12/27/2020 and apparently he had issues postoperatively including several strokes ultimately requiring PEG tube placement and referral to [facility]. 11 days ago he accidentally remove the PEG tube. He tried to see if he was able to eat and maintain nutrition and hydration orally. However, he has been unsuccessful and has become dehydrated. Surgery was consulted for PEG tube replacement. Performing Provider:: Christiano Rm MD Referring Provider:: Brayan Batista MD Sedation:: MAC sedation Procedure:: Patient was taken to endoscopy procedure room. He was maintained in a supine position. Adequate intravenous anesthesia was achieved with anesthesia titration of propofol. Olympus endoscope was inserted via the oropharynx. It was advanced into the gastric lumen. Stomach was insufflated. There was good light reflex noted. However, the antrum appeared to be located high in the epigastrium. Ultimately with positioning of the endoscope good transilluminating light reflex was noted adjacent to the previous healed PEG tube site. The abdomen was prepped and draped. Local anesthetic was infiltrated. Small incision was made adjacent to previous PEG site. Cannula was inserted into the gastric lumen. Loop guidewire was threaded through the cannula which was grasped via the endoscope with snare. Endoscope was then withdrawn from the gastric lumen with the loop guidewire. 20 Setswana pull-type traction PEG tube was secured to the loop guidewire. Traction was then placed on the guidewire and it was pulled via the oropharynx to exit the abdomen at the insertion site. Antibiotic ointment was applied at the insertion site. PEG tube was cut to the appropriate length. Infusion apparatus was then secured to the PEG tube. PEG tube was secured with the bumper at approximately the 3-1/2 cm mayelin. Completion endoscopy was performed which revealed good placement within the gastric lumen. Stomach was desufflated and the endoscope was withdrawn. Findings:: Limited EGD unremarkable gastric mucosa Recommendations:: May begin using PEG tube tomorrow. Complications:: None immediately apparent Estimated blood obtained (mL): 4
[2021-04-10 12:25] VITALS: BP 89/45; PULSE 77; RESP 18; TEMP 36.2; O2SAT 94
[2021-04-10 12:35] VITALS: BP 122/69; PULSE 78; RESP 18; O2SAT 95
[2021-04-10 12:45] VITALS: BP 127/71; PULSE 71; RESP 18; O2SAT 97
[2021-04-10 13:16] VITALS: BP 135/73; PULSE 73; RESP 20; O2SAT 94
== END 2021-04-10 13:20 | disposition home or self-care (01) ==
LOC: OUTP 10:38
PROVIDERS: PCP Family Medicine; Visit Provider Surgery
PROC: 0DH63UZ Insertion of Feeding Device into Stomach, Percutaneous Approach (ICD-10-PCS; CPT 43246; principal; 2021-04-10 10:00)
DX: I97.820 Postprocedural cerebrovascular infarction following cardiac surgery; I49.9 Cardiac arrhythmia, unspecified; I25.10 Atherosclerotic heart disease of native coronary artery without angina pectoris; K21.9 Gastro-esophageal reflux disease without esophagitis; E78.5 Hyperlipidemia, unspecified; I10 Essential (primary) hypertension; M19.90 Unspecified osteoarthritis, unspecified site; Z85.038 Personal history of other malignant neoplasm of large intestine; K76.9 Liver disease, unspecified; Z95.5 Presence of coronary angioplasty implant and graft; Z90.49 Acquired absence of other specified parts of digestive tract; Z80.9 Family history of malignant neoplasm, unspecified
CPT/HCPCS: 43246; C9803; U0003; U0005

== ENCOUNTER → 2021-04-11 10:16 | Outpatient (POV) | payer MEDICARE, OTHER, SELFPAY ==
[2021-04-11 10:43] VITALS: BP 120/90; PULSE 100; RESP 18; O2SAT 98; BMI 19.1
--- NOTE | 2021-04-11 10:43 | HMH.PAINSOAP ---
[facility] Pain Management SOAP Note Subjective:: Patient is an 80-year-old white male who presents today for follow-up. Patient is being treated with our clinic for chronic sacroiliitis. The patient did undergo a left SI joint stabilization procedure?corner lock. The patient says he is continuing to have significant pain to his left SI joint at this time. Patient does have extensive comorbidities. He is currently having difficulty swallowing. He does have a feeding tube in place and will begin home feeds through his feeding tube today. Patient reports immediately following his corner lock procedure, he developed severe constipation due to Wisdom use and due to location of stitches. He did go to the emergency room. The patient was given an enema for this. He says he is continuing to have diarrhea from the enema. Patient's pain is a 6 out of 10 to his left SI joint today. He is tender to palpation. He will have his sutures removed today. Review of Systems General: No recent weight changes, no fever, no sleep disturbances Respiratory: No cough, no shortness of air, no recurring pulmonary infections Cardiovascular/peripheral vascular: No chest pain, no palpitations, no edema, no shortness of breath Gastrointestinal: Difficulty swallowing, feeding tube placed?we will begin tube feeds today Genitourinary: No new onset incontinence Musculoskeletal: Left low back pain worse with walking and standing Psychiatric: [Normal mood/affect] Neurological: [Denies weakness in extremities], [denies balance issues] Integumentary: Denies redness, itching, drainage to incision sites Objective:: Physical exam General: Alert and oriented x3, no acute distress, pleasant and cooperative, [on room air] Lungs: Respirations even and unlabored, symmetrical chest expansion Eyes: PERRL Musculoskeletal: Flexion and extension of lumbar [spine] somewhat guarded secondary to pain, strength in upper and lower extremities [5/5], [antalgic gait noted] Neurological: Speech clear, [assembler semiconductor equal], no gross sensory deficit Integumentary: Incision is well approximated, no redness, no drainage, no edema noted to site. Sutures removed Assessment:: Sacroiliitis left Plan:: We will plan to see the patient back in the clinic in 1 month for reevaluation of symptoms. He will contact clinic if he has any concerns before his next appointment. Patient has been instructed to contact the clinic with any concerns before the next appointment. Dr. Jimenez has reviewed this note and agrees with this plan of care. This note was dictated using voice recognition software and make contain errors or omissions. [facility] History I have reviewed the patient's past medical history: Yes Medical History: Reports:: Arrhythmia, Cancer (colon), Carotid Stenosis, Congestive Heart Failure, Coronary Artery Disease, Cerebrovascular Accident, Gastroesophageal Reflux Disease(GERD), Heart Murmur, Hyperlipidemia, Hypertension, Transient Ischemic Attacks (TIA), Valvular Heart Disease Denies:: Diabetes Mellitus Type 1, Diabetes Mellitus Type 2, Internal Pacemaker, Lung Disease, MRSA, Seizures *Have you ever received a pneumonia vaccine?: Yes *Have you received a flu vaccine this season?: Yes Other Medical History: Reports: Arthritis, Chemotherapy, Liver Disease. Denies: Blood Transfusion Reaction Other Surgeries: Yes: CABG, Cancer Surgery, Cardiac Catheterization, Cardiac Surgery, Cholecystectomy, Colonoscopy, Colon Resection, EGD, Hernia Repair, Open Heart Surgery, Other Valve Replacement, Other. No: Pacemaker Amputation: No Fractures: No - *Social History Smoking Status: Never smoker Alcohol Intake: never Substance Use Type: denies use *Occupational Status:: retired Housing: house Household Members: spouse *Travel in the last 8 weeks: None Family Hx:: Cancer, Heart Attack
== END ==
PROVIDERS: Visit Provider Clinical Nurse Specialist Family Health
DX: M46.1 Sacroiliitis, not elsewhere classified (principal)
CPT/HCPCS: 99212; G0463

== ENCOUNTER → 2021-04-16 11:31 | Outpatient (POV) | payer MEDICARE, OTHER, SELFPAY ==
[2021-04-16 12:14] VITALS: BP 108/68; PULSE 67; RESP 18; O2SAT 97; BMI 19.8
--- NOTE | 2021-04-16 12:56 | HMH.PAINSOAP ---
[facility] Pain Management SOAP Note Subjective:: Patient is an 80-year-old who presents today for follow-up. He was seen in the clinic on 04/11/2021 for worsening pain to his incision site. He had a left SI stabilization procedure for which he is having worsening of incision pain. He does rate his pain a 7 or an 8 out of 10. He did contact the clinic for worsening pain at the incision site. He did report to me having some edema to the area as well. We did asked the patient to come to the clinic. He is not having radicular pain at this time. His pain is primarily at the incision site. Review of Systems General: No recent weight changes, no fever, no sleep disturbances Respiratory: No cough, no shortness of air, no recurring pulmonary infections Cardiovascular/peripheral vascular: No chest pain, no palpitations, no edema, no shortness of breath Gastrointestinal: No new onset incontinence, normal bowel movements reported Genitourinary: No new onset incontinence Musculoskeletal: Pain to the left buttock near incision site of the corner lock procedure Psychiatric: [Normal mood/affect] Neurological: [Denies weakness in extremities], [denies balance issues] Objective:: Physical exam General: Alert and oriented x3, no acute distress, pleasant and cooperative, [on room air], Lungs: Respirations even and unlabored, symmetrical chest expansion Eyes: PERRL Musculoskeletal: Palpation of the left buttock and incision site guarded secondary to pain, strength in upper and lower extremities [5/5], [antalgic gait noted] Neurological: Speech clear, [peer counselor equal], no gross sensory deficit Assessment:: Sacroiliitis left Plan:: We will give the patient trigger point injections around his incision site to see if this helps with his pain. I did discuss the patient with Dr. Jimenez. We will schedule him a follow-up appointment in 1 week to see if this relieves his incisional pain. Possible side effects of corticosteroids have been discussed with the patient. Risks and benefits of the procedure have been explained to the patient. Patient would like to proceed with the procedure. Patient has been instructed to contact the clinic with any concerns before the next appointment. Dr. Jimenez has reviewed this note and agrees with this plan of care. This note was dictated using voice recognition software and make contain errors or omissions. [facility] History I have reviewed the patient's past medical history: Yes Medical History: Reports:: Arrhythmia, Cancer (colon), Carotid Stenosis, Congestive Heart Failure, Coronary Artery Disease, Cerebrovascular Accident, Gastroesophageal Reflux Disease(GERD), Heart Murmur, Hyperlipidemia, Hypertension, Transient Ischemic Attacks (TIA), Valvular Heart Disease Denies:: Diabetes Mellitus Type 1, Diabetes Mellitus Type 2, Internal Pacemaker, Lung Disease, MRSA, Seizures *Have you ever received a pneumonia vaccine?: Yes *Have you received a flu vaccine this season?: No Other Medical History: Reports: Arthritis, Chemotherapy, Liver Disease. Denies: Blood Transfusion Reaction Other Surgeries: Yes: CABG, Cancer Surgery, Cardiac Catheterization, Cardiac Surgery, Cholecystectomy, Colonoscopy, Colon Resection, EGD, Hernia Repair, Open Heart Surgery, Other Valve Replacement, Other. No: Pacemaker Amputation: No Fractures: No - *Social History Smoking Status: Never smoker Alcohol Intake: never Substance Use Type: denies use *Occupational Status:: unemployed Housing: house Household Members: spouse *Travel in the last 8 weeks: None Family Hx:: Cancer, Heart Attack
--- NOTE | 2021-04-16 13:01 | P.PCN_ITS ---
- Procedure Date: 04/16/21 Time: 12:05 Anesthesiologist:: Blanca Clay APRN Complications:: None Pre-procedure Diagnosis:: Incisional pain?status post corner lock Post-procedure Diagnosis:: Same Indications for Procedure:: Patient is an 80-year-old white male who presents today for worsening pain at incision site status post cornerloc. He is not having radicular pain. He says that the pain is intense in nature and worse with any type of movement. He did feel as though he had swelling at the incision site as well. The incision is well approximated, without redness, drainage, or edema. The sutures are removed. He does have minimal swelling at his incision site. We will perform trigger point to the area to see if he gets relief. Physical exam General: Alert and oriented x3, no acute distress, pleasant and cooperative, [on room air] Lungs: Respirations even and unlabored, symmetrical chest expansion Eyes: PERRL Musculoskeletal: Palpation of the left SI joint and incision site somewhat guarded secondary to pain, strength in upper and lower extremities [5/5], [antalgic gait noted] Neurological: Speech clear, [elevator constructor equal], no gross sensory deficit Procedure Details:: Informed consent was obtained and the risk and benefits of the procedure was explained to the patient. Patient was taken to the procedure room. The left SI joint/incision site was prepped using ChloraPrep. The area was injected with bupivacaine 0.25% 3 mL and Depo-Medrol 10 mg. A total of 40 milligrams Depo- Medrol was injected to the site. Bandages were placed over the injection sites. Patient tolerated procedure well with no complications. Plan and Disposition:: We will plan to follow-up with the patient in 1 week for reevaluation of symptoms. He has been educated regarding the signs and symptoms of corticosteroids. Patient has been instructed to contact the clinic with any concerns before the next appointment. Dr. Jimenez has reviewed this note and agrees with this plan of care. This note was dictated using voice recognition software and make contain errors or omissions.
== END ==
PROVIDERS: Visit Provider Clinical Nurse Specialist Family Health
DX: M46.1 Sacroiliitis, not elsewhere classified (principal)
CPT/HCPCS: 99212; G0463

== ENCOUNTER 2021-04-19 08:46 | Day surgery (SDC) | payer MEDICARE, OTHER, SELFPAY ==
[2021-04-19 09:01] VITALS: BP 138/71; PULSE 85; RESP 20; TEMP 36.7; O2SAT 98; BMI 19.8
[2021-04-19 09:12] VITALS: BP 138/71; PULSE 85; RESP 18; TEMP 36.7; O2SAT 98; BMI 19.8
[2021-04-19 09:34] VITALS: BP 145/69; PULSE 85; RESP 18; O2SAT 93
[2021-04-19 09:36] VITALS: BP 145/69; PULSE 79; RESP 18; O2SAT 95
--- NOTE | 2021-04-19 09:43 | HMH.PMPROC ---
- Procedure Date: 04/19/21 Time: 09:43 Anesthesiologist:: Ron Jimenez MD Complications:: None Pre-procedure Diagnosis:: Sacroiliitis and myofascial pain after recent left SI joint stabilization Post-procedure Diagnosis:: Same Indications for Procedure:: Patient is a pleasant 80-year-old white male who we've been treating for sacroiliitis. He had a left SI joint stabilization approximately a month ago. He is having some left hip pain which seems to be myofascial in origin. We'll do trigger point injections today to see if this helps with his pain symptoms. Procedure Details:: Trigger point injections x4 to left buttock area and piriformis muscle informed consent was obtained risk and benefits of the procedure were explained to the patient. Patient was taken the procedure room the left hip was prepped using ChloraPrep over the left SI joint. 25-gauge needle was used we injected 10 mL bupivacaine 0.25% and Depo-Medrol 40 mg into the muscles over the left SI joint. This was just below the incisions which may be inflamed from previous left SI joint stabilization. The cadaveric bone graft to look in good position. Plan and Disposition:: We'll follow-up with him in 2 weeks. Will reevaluate his symptoms at that time.
[2021-04-19 09:46] VITALS: BP 111/68; PULSE 87; RESP 20; O2SAT 99
== END 2021-04-19 09:49 | disposition home or self-care (01) ==
LOC: SC.PAIN 09:09
PROVIDERS: PCP Family Medicine; Visit Provider Anesthesiology
DX: M46.1 Sacroiliitis, not elsewhere classified (principal); M79.18 Myalgia, other site; Z98.890 Other specified postprocedural states
CPT/HCPCS: 20552; 99212; G0463; J1040

== ENCOUNTER 2021-04-30 15:00 | Outpatient (RCR) | payer MEDICARE, OTHER, SELFPAY ==
--- NOTE | 2021-02-18 15:46 | HMH.SLAPHASI ---
Speech & Language Evaluation Speech/Language Aphasia Evaluation Start: 02/18/21 15:38 Freq: once Status: Complete Protocol: Document 02/18/21 15:38 CHEIKH (Rec: 02/18/21 15:46 CHEIKH [id number]) Aphasia Assessment/Goals/Plan Assessment Date of Evaluation: 02/18/21 Evaluation Type Initial Certification Assessment/Problems CVA Does Patient Qualify for Service Yes Qualify/Failure Comment Patient did qualify for speech therapy with cognitive impairment, speech is slurred and he speaks at a rapid rate . Patient does require a MBS to determine if dysphagia therapy is warranted and determine least restrictive diet. Plan Pt/Guardian verbally ack understanding Yes of dx/prognosis/goals G -code Required No STG-Attending/Orientation/Memory Delayed Recall 90 STG-Intell/Buccal/Labial Strength Intelligibility 90 Ophthalmic Technologist Goals Increase intelligibility w/use of Yes traditional articulation treatment. Speech & Language HPI History Present Illness Description of Patient Problem CVA Rehab Services Assessed Speech therapy Is this evaluation r/t stroke? Yes Aphasia Evaluations Communication Speech Intelligibility Slurred speech and speaks at a rapid rate of speech Auditory Comprehension Yes: Word Level Sentences Following Directions Paragraph Conversation AC Comment All areas WNL Reading Comprehension Yes: Letter Naming Word Naming Sentences Paragraphs RC Comment All areas WNL Verbal Expressive Language Yes: Automatic Speech Completing Sentences Repetition Abilities Word Level Naming Naming Actions/Objects Sentence Level Defining Words AMBROSIO Comment All areas WNL Written Language Yes: Signature Copy Shapes Copy Words Check Writing Sentence Writing WL Comment All areas WNL Attending/Orientation/Memory
== END 2021-04-30 15:05 | disposition home or self-care (01) ==
LOC: ST 15:00
PROVIDERS: PCP Family Medicine; Visit Provider Physical Medicine & Rehabilitation
DX: I63.9 Cerebral infarction, unspecified (principal); R13.10 Dysphagia, unspecified; I69.928 Other speech and language deficits following unspecified cerebrovascular disease
CPT/HCPCS: 92523; 92526

== ENCOUNTER → 2021-05-07 13:44 | Outpatient (CLI) | payer MEDICARE, OTHER, SELFPAY ==
[2021-05-08 16:12] LABS: C difficile Toxins AB, EIA Negative (Negative)
== END ==
PROVIDERS: Visit Provider Family Medicine
DX: R19.7 Diarrhea, unspecified (principal)
CPT/HCPCS: 87324

== ENCOUNTER 2021-05-09 13:00 | Outpatient (RCR) | payer MEDICARE, OTHER, SELFPAY | END 2021-05-09 13:05 | disposition home or self-care (01) | LOC: PT 13:00 | PROVIDERS: PCP Family Medicine; Visit Provider Physical Medicine & Rehabilitation | DX: I63.9 Cerebral infarction, unspecified (principal) | CPT/HCPCS: 97014; 97110; 97112; 97116; 97163; 97164; 97530; G0283 ==

== ENCOUNTER 2021-05-09 14:00 | Outpatient (RCR) | payer MEDICARE, OTHER, SELFPAY | END 2021-05-09 14:05 | disposition home or self-care (01) | LOC: OT 14:00 | PROVIDERS: PCP Family Medicine; Visit Provider Physical Medicine & Rehabilitation | DX: I63.9 Cerebral infarction, unspecified (principal) | CPT/HCPCS: 97010; 97014; 97018; 97110; 97140; 97164; 97165; 97530; G0283 ==

== ENCOUNTER → 2021-05-13 14:28 | Outpatient (CLI) | payer MEDICARE, OTHER, SELFPAY | PROVIDERS: Visit Provider Urology | DX: Z12.5 Encounter for screening for malignant neoplasm of prostate (principal); N13.8 Other obstructive and reflux uropathy; N40.1 Benign prostatic hyperplasia with lower urinary tract symptoms | CPT/HCPCS: 36415; 87086; 87088; 87186; G0103 ==

== ENCOUNTER 2021-05-23 14:43 | Observation (INO) | payer MEDICARE, OTHER, SELFPAY ==
[2021-05-23] VITALS (11 sets, daily range): BP systolic 132–165; BP diastolic 64–90; PULSE 90–104; RESP 16–22; TEMP 36.6–37.3; O2SAT 95–99; BMI 20.5; BMI 20.8
--- NOTE | 2021-05-23 14:54 | HMH.EDGENADL ---
ED Disposition Clinical Impression: UGIB (upper gastrointestinal bleed) Disposition: Admitted As Inpatient Condition on Discharge: Fair Referrals: Beltran Batista MD [Primary Care Provider] - Time of Disposition: 18:25 - Critical Care Critical Care Time: No Attestation: On 05/23/21, the high probability of a clinically significant, sudden or life threatening deterioration of the following system(s) required my full and direct attention, intervention and personal management. The time I documented below is in addition to time spent performing reported procedures but includes the following listed in this critical care notation. Medical Decision Making - Medical Records Medical records reviewed: Yes: I reviewed the patient's medical records. - [place] Inquiry Pt receiving controlled substance: No Vital Signs: 05/23/21 14:43 05/23/21 14:52 05/23/21 15:30 Temperature 98.3 F Temperature Source Oral Pulse Rate Pulse Rate [Right Radial] 104 H Respiratory Rate 22 18 18 Blood Pressure 165/90 H 149/64 H Blood Pressure [Right Arm] 165/90 H Blood Pressure Mean 126 117 Blood Pressure Mean [Right Arm] 115 Blood Pressure Source [Right Arm] Automatic Cuff Blood Pressure Position [Right Arm] Sitting 02 Sat by Pulse Oximetry 99 99 96 Oxygen Delivery Method Room Air 05/23/21 16:06 05/23/21 16:30 05/23/21 17:00 Temperature Temperature Source Pulse Rate 100 H 98 H 99 H Pulse Rate [Right Radial] Respiratory Rate Blood Pressure 132/68 154/65 H 147/72 H Blood Pressure [Right Arm] Blood Pressure Mean 113 103 Blood Pressure Mean [Right Arm] Blood Pressure Source [Right Arm] Blood Pressure Position [Right Arm] 02 Sat by Pulse Oximetry 95 95 95 Oxygen Delivery Method - Lab Data Lab results reviewed: Yes: I reviewed the patient's lab results. Lab Results 05/23/21 15:10: WBC 14.6 H, RBC 5.36, Hgb 14.9, Hct 46.2, MCV 86.1, MCH 27.7, MCHC 32.2, RDW 15.9, Plt Count 282, MPV 9.6, Neut % (Auto) 87.9 H, Lymph % (Auto) 7.3 L, Harnett % (Auto) 4.4, Eos % (Auto) 0.1, Baso % (Auto) 0.2, Neut # (Auto) 12.8 H, Lymph # (Auto) 1.1, Harnett # (Auto) 0.7, Eos # (Auto) 0.0, Baso # (Auto) 0.0, Total Counted 100, Neutrophils % (Manual) 85 H, Band Neutrophils % 2.0, Lymphocytes % (Manual) 11, Monocytes % (Manual) 1 L, Eosinophils % (Manual) 1, Platelet Estimate Normal 05/23/21 15:10: Sodium 139, Potassium 3.6, Chloride 104, Carbon Dioxide 23, Anion Gap 15.6 H, BUN 21 H, Creatinine 0.60 L, Estimated Creat Clear 49, Estimated GFR 129, Est GFR ( Amer) 156, Glucose 168 H, Calcium 9.3, Total Bilirubin 1.6 H, AST 34, ALT 21, Alkaline Phosphatase 115, Troponin I < 0.01, Total Protein 7.4, Albumin 4.1, Globulin 3.3 H, Albumin/Globulin Ratio 1.2, Lipase 105 05/23/21 16:25: SARS-CoV-2 (PCR) Not detected, Influenza A Untype (PCR) Not detected, Influenza Type B (PCR) Not detected 05/23/21 16:25: Gastric Occult Blood Positive Result diagrams: 05/23/21 15:10 05/23/21 15:10 Orders (Tests/Meds): ED MEDICATIONS Generic Name Dose Route Start Last Admin Trade Name Freq PRN Reason Stop Dose Admin Sodium Chloride 10 ml 05/23/21 14:57 Sodium Chloride 0.9% 10ml Vial IV 06/22/21 14:56 NEEDED PRN dilute protonix Discontinued Medications Generic Name Dose Route Start Last Admin Trade Name Freq PRN Reason Stop Dose Admin Sodium Chloride 1,000 mls @ 999 mls/hr 05/23/21 15:00 05/23/21 15:29 Sod Chlor 0.9% 1000ml Bag IV 05/23/21 16:00 999 mls/hr .Q1H1M BRIDGETT Administration Iopamidol 100 ml 05/23/21 16:05 05/23/21 16:09 Iopamidol-370 (76%);100ml Bottle IV 05/23/21 16:06 100 ml ONCE ONE Administration Morphine Sulfate 2 mg 05/23/21 15:13 05/23/21 15:29 Morphine 2mg/Ml Syringe IV 05/23/21 15:14 2 mg ONCE ONE Administration Ondansetron HCl 4 mg 05/23/21 15:31 05/23/21 15:32 Ondansetron 4mg/2ml Vial IV 05/23/21 15:32 4 mg ONCE ONE Administration Panto
--- NOTE | 2021-05-23 14:56 | CT_ITS ---
PROCEDURE INFORMATION: Exam: CTA Abdomen and Pelvis With Contrast Exam date and time: 05/23/2021 2:56 PM Age: 81 years old Clinical indication: Other: Generalized abdominal pain with hemeteisis. ; Prior surgery; Surgery date: 6+ months; Surgery type: Colon, choleycystectomy; Additional info: Hematemesis TECHNIQUE: Imaging protocol: Computed tomographic angiography of the abdomen and pelvis with contrast material. 3D rendering (Not supervised by radiologist): MIP and/or 3D reconstructed images were created by the technologist. Radiation optimization: All CT scans at this facility use at least one of these dose optimization techniques: automated exposure control; mA and/or kV adjustment per patient size (includes targeted exams where dose is matched to clinical indication); or iterative reconstruction. Contrast material: ISOVUE 370; Contrast volume: 100 ml; Contrast route: INTRAVENOUS (IV); COMPARISON: MR PELVIS WO CON 06/14/2019 8:56 AM FINDINGS: Tubes, catheters and devices: There is a percutaneous gastrostomy tube. Pleural spaces: Small right pleural effusion. Mediastinal space: Small hiatal hernia. Aorta: No aortic aneurysm. No aortic dissection. Celiac trunk and mesenteric arteries: No occlusion or significant stenosis. Renal arteries: No occlusion or significant stenosis. Right iliac arteries: No occlusion or significant stenosis. Left iliac arteries: No occlusion or significant stenosis. Liver: No mass. Gallbladder and bile ducts: Absent gallbladder. Normal bile ducts. Pancreas: Unremarkable. No mass. No ductal dilation. Spleen: Unremarkable. No splenomegaly. Adrenal glands: Unremarkable. No mass. Kidneys and ureters: Unremarkable. No solid mass. No hydronephrosis. Stomach and bowel: Diffuse mucosal thickening throughout the stomach. The colon is moderately distended with liquid stool and gas. Surgical anastomosis at the rectosigmoid junction. The small intestine is unremarkable. No inflammatory change. No obstruction. No arterial lesions in the gastrointestinal tract. Appendix: No evidence of appendicitis. Intraperitoneal space: Unremarkable. No free air. No significant fluid collection. Lymph nodes: Unremarkable. No enlarged lymph nodes. Urinary bladder: Mural thickening of the left lateral aspect of the urinary bladder. Reproductive: Unremarkable as visualized. Bones/joints: No acute fracture. No dislocation. Soft tissues: Unremarkable. IMPRESSION: 1. Gastric mucosal thickening may possibly represent gastritis. Differential considerations include viral gastritis and peptic ulcer disease. 2. Mild nonspecific changes of the large intestine. This may represent the same process as that affecting the stomach. Unrelated viral colitis is also possible. 3. Thickening of the bladder wall in the left lateral aspect. This may be inflammatory or neoplastic. 4. Small right pleural effusion.
[2021-05-23 15:18] LABS: Basophils % 0.2 % (0.1-2.0); Eosinophils % 0.1 % (0.1-12.0); Hematocrit 46.2 % (42.0-52.0); Hemoglobin 14.9 g/dL (14.1-18.0); Lymphocytes # 1.1 K/mm3 (0.7-4.5); Lymphocytes % 7.3 % (10-50); Mean Corpuscular HGB Conc 32.2 g/dL (31.8-35.4); Mean Corpuscular Hemoglobin 27.7 pg (27.0-31.2); Mean Corpuscular Volume 86.1 fl (80-94); Mean Platelet Volume 9.6 fl (7.4-10.4); Monocytes # 0.7 K/mm3 (0.1-1.0); Monocytes % 4.4 % (1.7-9.3); Neutrophils # 12.8 K/mm3 (1.8-7.8); Neutrophils % 87.9 % (37.0-80.0); Platelet Count 282 K/mm3 (142-424); Red Blood Count 5.36 M/mm3 (4.60-6.20); Red Cell Distribution Width 15.9 % (11.5-17.5); White Blood Count 14.6 K/mm3 (4.8-10.8)
[2021-05-23 15:22] LABS: MANUAL DIFFERENTIAL MANUAL DIFFERENTIAL (MANUAL DIFF)
[2021-05-23 15:24] LABS: Chloride 104 mmol/L (98-107); Sodium 139 mmol/L (136-145)
[2021-05-23 15:25] LABS: Potassium 3.6 mmoL/L (3.5-5.1)
[2021-05-23 15:27] LABS: Alanine Aminotransferase 21 U/L (12-78); Albumin Level 4.1 g/dl (3.5-5.0); Albumin/Globulin Ratio 1.2 (1.1-1.8); Alkaline Phosphatase 115 U/L (38-126); Anion Gap 15.6 mEq/L (5-15); Aspartate Amino Transferase 34 U/L (17-59); Bilirubin,Total 1.6 mg/dl (0.2-1.3); Blood Urea Nitrogen 21 mg/dl (9-20); Calcium 9.3 mg/dl (8.4-10.2); Carbon Dioxide 23 mmol/L (22.0-30.0); Creatinine Clearance Estimated 49 mL/min (50-200); Estimated Glomerular Filt Rate 129 ml/min (>60); GFR (African American) 156 ML/MIN (>60); Globulin 3.3 g/dL (1.3-3.2); Glucose 168 mg/dl (74-100); Lipase 105 U/L (23-300); Total Protein,Serum 7.4 g/dl (6.3-8.2)
[2021-05-23 15:44] LABS: Eosinophils % 1 % (0-3); Lymphocytes % 11 % (10-50); Monocytes % 1 % (2-9); Neutrophils % 85 % (42-76); Platelet Estimate Normal; Total Cells Counted 100
[2021-05-23 15:52] LABS: Troponin I < 0.01 ng/ml (0.00-0.034)
--- NOTE | 2021-05-23 16:49 | US_ITS ---
PROCEDURE INFORMATION: Exam: US Abdomen, Limited; Right Upper Quadrant Exam date and time: 05/23/2021 4:49 PM Age: 81 years old Clinical indication: Vomiting and other: Elevated bilirubin; Prior surgery; Surgery date: 6+ months; Surgery type: G tiube bowel surgery gb; Additional info: Elevatd t bili TECHNIQUE: Imaging protocol: US abdomen. Real time ultrasound with image documentation. Limited exam focused on the right upper quadrant. COMPARISON: CT ANGIO ABDOMEN PELVIS 05/23/2021 3:57 PM FINDINGS: Liver: Normal. No masses. No ductal dilatation. Patent portal vein with normal venous waveform. Gallbladder: Prior cholecystectomy again noted. Common bile duct: Normal. Pancreas: Visualized pancreas is unremarkable. Right kidney: Normal. No mass. No hydronephrosis. IMPRESSION: No acute findings.
[2021-05-23 17:06] LABS: Occult Blood,Gastric Fluid Positive (Negative)
[2021-05-23 17:07] LABS: Coronavirus 19, PCR Not Detected (NotDetected); Influenza A, PCR Not Detected (NotDetected); Influenza B, PCR Not Detected (NotDetected)
--- NOTE | 2021-05-23 17:28 | PC.NURSE ---
pt to US
--- NOTE | 2021-05-23 17:57 | PC.NURSE ---
Pt returned from US
--- NOTE | 2021-05-23 18:52 | PC.NURSE ---
Spoke with Margarita Meek and asked if general surgeon had been contacted on patient he stated no, ER stated its a consult for in the AM, so I asked if I could change order to reflect that, ALIREZA DAILY stated ok. order changed
--- NOTE | 2021-05-23 20:36 | PC.NURSE ---
PT ARRIVED TO FLOOR VIA STRETCHER FROM ED W/STAFF @2035
[2021-05-24] VITALS (19 sets, daily range): BP systolic 88–139; BP diastolic 52–78; PULSE 68–90; RESP 14–20; TEMP 36.4–36.9; O2SAT 94–98; BMI 20.7
[2021-05-24 03:11] LABS: Adenovirus F 40/41, stool Not Detected (NotDetected); Astrovirus Not Detected (NotDetected); Campylobacter Not Detected (NotDetected); Clostridium Difficile A/B, PCR Not Detected (NotDetected); Cryptosporidium Not Detected (NotDetected); Cyclospora Cayetanesis Not Detected (NotDetected); Entamoeba histolytica Not Detected (NotDetected); Enteroaggregative E coli Not Detected (NotDetected); Enterotoxigenic E coli Not Detected (NotDetected); Giardia lamblia Not Detected (NotDetected); Norovirus Not Detected (NotDetected); Plesimonas Shigalloides, PCR Not Detected (NotDetected); Rotavirus A Not Detected (NotDetected); Salmonella, PCR Not Detected (NotDetected); Sapovirus Not Detected (NotDetected); Shiga-like toxin E coli Not Detected (NotDetected); Shigella Enterovasive E coli Not Detected (NotDetected); Vibrio Cholerae Not Detected (NotDetected); Vibrio, PCR Not Detected (NotDetected); Yersinia Entercolitica, PCR Not Detected (NotDetected)
[2021-05-24 03:17] LABS: Occult Blood,Stool Positive (Negative)
--- NOTE | 2021-05-24 03:47 | PC.NURSE ---
PT HAS BEEN A+O X4 T/O SHIFT. PT C/O PAIN IN MID ABDOMINAL AREA RATING PAIN 6-7/10. PT HAS BEEN ADMINISTERED 4 MG MORPHINE PER MAR WITH FAVORABLE RESULTS. ABDOMEN APPEARS DISTENDED. NO C/O N/V. PT HAS HAD DIARRHEA 6X T/O SHIFT THUS FAR. INCONTINENT BUT ABLE TO VOICE WHEN NEED CHANGED. DIARRHEA PANEL ORDERED, AWAITING RESULTS. SKIN IS INTACT AND BARRIER CREAM HAS BEEN APPLIED. PT HAS AUDIBLE WHEEZES WHILE LYING ON SIDE BUT O2 SATS REMAIN ABOVE 90%. LUNG SOUNDS WHILE SUPINE ARE CLEAR, LOWER LOBES SOMEWHAT DIMINISHED. PT CURRENTLY RESTING IN BED. VSS. CB IN REACH. WILL CONTINUE TO MONITOR.
[2021-05-24 05:05] LABS: Enteropathogenic E coli Detected (NotDetected)
[2021-05-24 05:32] LABS: Lymphocytes % 14.9 % (10-50)
[2021-05-24 05:35] LABS: Chloride 107 mmol/L (98-107); Potassium 3.1 mmoL/L (3.5-5.1); Sodium 141 mmol/L (136-145)
[2021-05-24 05:38] LABS: Blood Urea Nitrogen 17 mg/dl (9-20); Creatinine Clearance Estimated 50 mL/min (50-200); Estimated Glomerular Filt Rate 129 ml/min (>60); GFR (African American) 156 ML/MIN (>60)
[2021-05-24 05:39] LABS: Anion Gap 10.1 mEq/L (5-15); Calcium 8.7 mg/dl (8.4-10.2); Carbon Dioxide 27 mmol/L (22.0-30.0); Glucose 100 mg/dl (74-100)
[2021-05-24 05:42] LABS: Basophils % 0.2 % (0.1-2.0); Eosinophils % 0.2 % (0.1-12.0); Lymphocytes # 1.3 K/mm3 (0.7-4.5); Mean Corpuscular Hemoglobin 27.3 pg (27.0-31.2); Mean Corpuscular Volume 85.3 fl (80-94); Mean Platelet Volume 9.6 fl (7.4-10.4); Monocytes # 0.6 K/mm3 (0.1-1.0); Monocytes % 6.8 % (1.7-9.3); Neutrophils % 77.9 % (37.0-80.0); Platelet Count 186 K/mm3 (142-424); Red Blood Count 4.45 M/mm3 (4.60-6.20); Red Cell Distribution Width 15.9 % (11.5-17.5)
[2021-05-24 05:44] LABS: Hemoglobin 12.1 g/dL (14.1-18.0)
--- NOTE | 2021-05-24 06:41 | HMH.GSCON ---
*Admission Date: 05/24/21 *Reason for consult:: Likely upper gastrointestinal hemorrhage *History of present illness: This is an 81-year-old gentleman with a complex past medical history who was evaluated in the emergency department overnight for hematemesis. Please see HPI from emergency department evaluation. Forwarded from emergency department evaluation General Adult HPI - General Stated complaint: pain, black vomit Time Seen by Provider: 05/23/21 14:54 Mode of Arrival: Wheelchair - History of Present Illness HPI narrative: 81yo M presents the emergency department with his secondary to abdominal pain and coffee-ground emesis. Patient reports he developed abdominal pain yesterday with coffee-ground emesis this morning. Patient is a history of colon cancer and recently had valvular replacement. He had a very prolonged and difficult recovery from cardiac surgery and ended up with a feeding tube. He now tolerates p.o. feeding as well as feeding tube. Patient reports he has had very scant bowel movements for the past 2 days which is atypical for him. He denies any dark stool. He denies any bright red stool. He denies any chest pain or shortness of breath. He states his abdomen feels distended and is very tender. Review of Systems - Constitutional Denies chills - *Respiratory Reports shortness of breath - *Gastrointestinal Reports coffee ground vomit - *Genitourinary Denies blood in urine [facility] History Medical History: Reports:: Arrhythmia, Cancer, Carotid Stenosis, Congestive Heart Failure, Coronary Artery Disease, Cerebrovascular Accident, Gastroesophageal Reflux Disease(GERD), Heart Murmur, Hyperlipidemia, Hypertension, Myocardial Infarction, Transient Ischemic Attacks (TIA), Valvular Heart Disease Denies:: Diabetes Mellitus Type 1, Diabetes Mellitus Type 2, Internal Pacemaker, Lung Disease, MRSA, Seizures *Have you ever received a pneumonia vaccine?: Yes *Have you received a flu vaccine this season?: Yes Other Medical History: Reports: Arthritis, Chemotherapy, Liver Disease. Denies: Blood Transfusion Reaction Other Surgeries: Yes: No Previous Surgery, CABG, Cancer Surgery, Cardiac Catheterization, Cardiac Surgery, Cholecystectomy, Colonoscopy, Colon Resection, Coronary Stent, EGD, Hernia Repair, Open Heart Surgery, Other Valve Replacement, Other. No: Pacemaker Amputation: No Fractures: No - *Social History Last grade of school completed: High school graduate Smoking Status: Never smoker Alcohol Intake: never Substance Use Type: denies use *Occupational Status:: retired Housing: house Household Members: spouse, children *Travel in the last 8 weeks: None Family Hx:: Cancer, Heart Attack Meds Home Medications Medication Instructions Recorded Confirmed Type Atorvastatin Calcium [Atorvastatin 40 mg PO DAILY 02/22/19 05/23/21 History 40mg Tab] lisinopril 10 mg tablet 10 mg PO DAILY tab 02/20/20 05/23/21 History amlodipine 5 mg tablet 5 mg PO DAILY tab 10/25/20 05/23/21 History Hydrocodone/Acetaminophen 1 each PO Q4-6H PRN #20 tab 03/29/21 05/23/21 Rx [Hydrocodone-Acetamin 5-325 mg] gabapentin 300 mg capsule 300 mg PO BID #90 cap 05/14/21 05/23/21 Rx metoprolol succinate 25 mg 25 mg PO DAILY tab 05/14/21 05/23/21 History tablet,extended release 24 hr omeprazole magnesium 20 mg 20 mg PO DAILY 05/14/21 05/23/21 History tablet,delayed release Ciprofloxacin HCl 500 mg PO BID 05/23/21 05/23/21 History Allergies Allergy/AdvReac Type Severity Reaction Status Date / Time No Known Allergies Allergy Verified 05/14/21 15:06 Exam Vital signs and Labs for Last 24 Hours: Temp Pulse Resp BP Pulse Ox 98.1 F 76 18 134/68 95 05/24/21 04:00 05/24/21 04:00 05/24/21 04:00 05/24/21 04:00 05/24/21 04:00 Laboratory Results - last 24 hr 05/23/21 15:10: WBC 14.6 H, RBC 5.36, Hgb 14.9, Hct 46.2, MCV 86.1, MCH 27.7, MCHC 32.2, RDW 15.9, Plt Count 282, MPV 9.6, Neut % (Auto) 87
--- NOTE | 2021-05-24 07:17 | HMH.HP ---
*Admission Date: 05/23/21 *Chief complaint: Vomiting *History of present illness: 81-year-old male presented to the emergency department with his due to coffee-ground emesis at home. CT scan showed some gastric and intestinal abnormalities. Due to concern for GI bleed patient was admitted. H&H is decreased overnight. General surgeon has been consulted for EGD. 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 Patient required feeding tube which is still in place to help maintain weight although he is able to eat meals currently. Patient reports to me overnight he developed diarrhea which he initially attributed to having been given an enema yesterday prior to arrival. Stool studies are positive for EPEC. Patient denies having fevers. He denies melena or hematochezia [facility] History I have reviewed the patient's past medical history: Yes Medical History: Reports:: Arrhythmia, Cancer, Carotid Stenosis, Congestive Heart Failure, Coronary Artery Disease, Cerebrovascular Accident, Gastroesophageal Reflux Disease(GERD), Heart Murmur, Hyperlipidemia, Hypertension, Myocardial Infarction, Transient Ischemic Attacks (TIA), Valvular Heart Disease Denies:: Diabetes Mellitus Type 1, Diabetes Mellitus Type 2, Internal Pacemaker, Lung Disease, MRSA, Seizures *Have you ever received a pneumonia vaccine?: Yes *Have you received a flu vaccine this season?: Yes Other Medical History: Reports: Arthritis, Chemotherapy, Liver Disease. Denies: Blood Transfusion Reaction Other Surgeries: Yes: No Previous Surgery, CABG, Cancer Surgery, Cardiac Catheterization, Cardiac Surgery, Cholecystectomy, Colonoscopy, Colon Resection, Coronary Stent, EGD, Hernia Repair, Open Heart Surgery, Other Valve Replacement, Other. No: Pacemaker Amputation: No Fractures: No - *Social History Last grade of school completed: High school graduate Smoking Status: Never smoker Alcohol Intake: never Substance Use Type: denies use *Occupational Status:: retired Housing: house Household Members: spouse, children *Travel in the last 8 weeks: None Family Hx:: Cancer, Heart Attack Review of Systems - Constitutional Denies anorexia, Denies body ache(s), Denies chills, Denies lack of energy - Eyes Denies change in vision (No but one of my when the whole thing began a couple of the girls made my o) - ENT Denies change in voice - *Cardiovascular Denies chest pain at rest, Denies chest pain with activity, Denies shortness of breath, Denies shortness of breath with activity - *Respiratory Denies change in phlegm color, Denies chest congestion, Denies cough, Denies shortness of breath - *Gastrointestinal Denies abdominal pain (My God will have a [employer] here [employer] accidentally reported like 400,000 va), Denies belching, Denies bloating - *Genitourinary Reports difficulty urinating - *Musculoskeletal Reports joint pain - Integumentary/Breasts Denies hair loss, Denies bleeding lesions - *Neurologic Denies abnormal hearing, Denies abnormal movements Meds Home Medications Medication Instructions Recorded Confirmed Type Atorvastatin Calcium [Atorvastatin 40 mg PO DAILY 02/22/19 05/23/21 History 40mg Tab] lisinopril 10 mg tablet 10 mg PO DAILY tab 02/20/20 05/23/21 History amlodipine 5 mg tablet 5 mg PO DAILY tab 10/25/20 05/23/21 History Hydrocodone/Acetaminophen 1 each PO Q4-6H PRN #20 tab 03/29/21 05/23/21 Rx [Hydrocodone-Acetamin 5-325 mg] gabapentin 300 mg capsule 300 mg PO BID #90 cap 05/14/21 05/23/21 Rx metoprolol succinate 25 mg 25 mg PO DAILY tab 05/14/21 05/23/21 History tablet,extended release 24 hr omeprazole magnesium 20 mg 20 mg PO DAILY 05/14/21 05/23/21 History tablet,delayed re
--- NOTE | 2021-05-24 07:52 | P.PN_ITS ---
[facility] Anesthesia Checklist - Patient Identification Patient Identification: Arm Band - Structural Data Admitted From: Inpatient Planned Operative Procedure/s: EGD Consent for Planned Operative Procedure(s) Verified: Yes - NPO Status Verified Time NPO: 00:00 - Additional verifications Anesthesia Reactions: No Hx Blood Transfusions: No Blood Transfusion Reaction: No - Cardiovascular Assessment Heart Sounds: S1 & S2 Pulse Strength: Baseline Pulse Rhythm: Regular Peripheral Edema: No - Airway Assessment C-Spine Mobility Assessed: Yes TMJ Mobility Assessed: Yes Dentition: Poor Dentition - Neurological Assessment Level of Consciousness: Awake - Anesthesia Plan Anesthesia Risk discussed: Yes Anesthesia Plan: Verified ASA Class: IV (IV E) Anesthesia Type: MAC [facility] History I have reviewed the patient's past medical history: Yes Medical History: Reports:: Arrhythmia, Cancer, Carotid Stenosis, Congestive Heart Failure, Coronary Artery Disease, Cerebrovascular Accident, Gastroesophageal Reflux Disease(GERD), Heart Murmur, Hyperlipidemia, Hypertension, Myocardial Infarction, Transient Ischemic Attacks (TIA), Valvular Heart Disease Denies:: Diabetes Mellitus Type 1, Diabetes Mellitus Type 2, Internal Pacemaker, Lung Disease, MRSA, Seizures *Have you ever received a pneumonia vaccine?: Yes *Have you received a flu vaccine this season?: Yes Other Medical History: Reports: Arthritis, Chemotherapy, Liver Disease. Denies: Blood Transfusion Reaction Anesthesia experience/problems:: No anesthesia complications but multiple surgical complications during TAVR Other Surgeries: Yes: No Previous Surgery, CABG, Cancer Surgery, Cardiac Catheterization, Cardiac Surgery, Cholecystectomy, Colonoscopy, Colon Resection, Coronary Stent, EGD, Hernia Repair, Open Heart Surgery, Other Valve Replacement, Other (TAVR). No: Pacemaker Amputation: No Fractures: No - *Social History Last grade of school completed: High school graduate Smoking Status: Never smoker Alcohol Intake: never Substance Use Type: denies use *Occupational Status:: retired Housing: house Household Members: spouse, children *Travel in the last 8 weeks: None Family Hx:: Cancer, Heart Attack
--- NOTE | 2021-05-24 07:52 | HMH.PHAVTE ---
[facility] Pharmacy VTE Monitoring - Patient Demographics Admission date: 05/23/21 Report Date: 05/24/21 Time: 07:52 Allergies/Adverse Reactions: Patient Allergies No Known Allergies Allergy (Verified 05/14/21 15:06) Height: 1.73 m Weight: 62.284 kg Patient Problems: Current Active Problems UGIB (upper gastrointestinal bleed) (Acute) E coli enteritis (Acute) Hypokalemia (Acute) - VTE Risk Labs: VTE Related Lab Results Hgb 12.1 g/dL (14.1-18.0) L D 05/24/21 04:33 Hct 38.0 % (42.0-52.0) L 05/24/21 04:33 Plt Count 186 K/mm3 (142-424) D 05/24/21 04:33 BUN 17 mg/dl (9-20) 05/24/21 04:33 Creatinine 0.60 mg/dl (0.66-1.25) L 05/24/21 04:33 Estimated Creat Clear 50 mL/min (50-200) 05/24/21 04:33 VTE Score: 4 VTE Risk Level: Low Risk - Prophylaxis VTE Prophylaxis Ordered?: Yes Types of VTE Prophylaxis: IPCS Thigh High Location of Applied Device: Bilateral Lower Extremeties
--- NOTE | 2021-05-24 08:52 | HMH.PHAINT ---
MEDICATION RECONCILIATION COMPLETED ON PATIENT USING EXTERNAL FILL HISTORY FROM PHARMACY, LIST FROM DR. AWAN'S OFFICE, LIST FROM DR. QUIJANO'S OFFICE, AND LIST FROM DR. WILSON'S OFFICE. -LUCIA BAKER PHARMD
--- NOTE | 2021-05-24 09:24 | P.PCN_ITS ---
- Procedure: Date: 05/24/21 Patient Date of :: 1940 Procedure Performed:: Esophagogastroduodenoscopy with biopsy Indications:: Upper gastrointestinal hemorrhage Performing Provider:: Jack Trinidad MD Referring Provider:: Dr. Dominguez Sedation:: Monitored anesthesia care Procedure:: After informed consent was obtained the patient was taken to the endoscopy suite. Sedation ensued after the patient was transferred to the left lateral decubitus position. Pulse, blood pressure, and oxygen saturation were monitored throughout the procedure. The endoscope was advanced beyond the duodenal bulb. Retroflexion within the gastric lumen was accomplished. The gastroscope was carefully removed and the patient was transferred to recovery in stable c ondition. Please see findings and specimens below for detail. Findings:: PEG bumper in good position with no obvious bleeding No obvious ulceration Apparent old blood mixed with bile within gastric lumen Patchy gastritis No sign of active hemorrhage No obvious blood in the small bowel Specimens:: Antral biopsy Recommendations:: Proton pump inhibition Follow-up pathology Serial hemoglobin/hematocrit Diet as per primary service Complications:: No immediate Estimated blood obtained (mL): 1
[2021-05-24 16:15] LABS: Hematocrit 35.4 % (42.0-52.0); Hemoglobin 11.5 g/dL (14.1-18.0)
--- NOTE | 2021-05-24 17:52 | PC.NURSE ---
Pt has been pleasant and cooperative this shift. A&O X4. Pt has complained of pain X1 and received Morphine per MAR with favorable results. Pt is on room air with sats. >90%. Lungs CTA. No edema noted. Skin is C/D/I. Abdomen is soft and non-tender with a G-Tube in place. Pt is incontinent of bowel/bladder and a brief is in place. Pt has had several episodes of loose, brown stool this shift. Pt is tolerating a regular diet and eats the majority of all meals. 20 G peripheral IV in the RT forearm is patent and infusing LR @ 75 ML/HR. VSS. Call light within reach. Will continue to monitor.
[2021-05-25 04:00] VITALS: BP 143/78; PULSE 77; RESP 17; TEMP 36.8; O2SAT 95
--- NOTE | 2021-05-25 04:48 | PC.NURSE ---
No acute changes at this time. Pt has not voiced any c/o pain, n/v t/o shift. Tolerating room air well with sats above 94%. Abdomen is soft and non tender with GI tube in place.
[2021-05-25 05:05] VITALS: BMI 21.1
[2021-05-25 06:11] LABS: Basophils % 0.5 % (0.1-2.0); Eosinophils # 0.1 K/mm3 (0.0-0.4); Eosinophils % 2.1 % (0.1-12.0); Hematocrit 36.9 % (42.0-52.0); Hemoglobin 11.8 g/dL (14.1-18.0); Lymphocytes # 1.3 K/mm3 (0.7-4.5); Lymphocytes % 22.1 % (10-50); Mean Corpuscular HGB Conc 31.9 g/dL (31.8-35.4); Mean Corpuscular Hemoglobin 27.8 pg (27.0-31.2); Mean Corpuscular Volume 87.1 fl (80-94); Mean Platelet Volume 9.7 fl (7.4-10.4); Monocytes # 0.5 K/mm3 (0.1-1.0); Monocytes % 7.9 % (1.7-9.3); Neutrophils # 4.1 K/mm3 (1.8-7.8); Neutrophils % 67.4 % (37.0-80.0); Platelet Count 163 K/mm3 (142-424); Red Blood Count 4.23 M/mm3 (4.60-6.20); Red Cell Distribution Width 16.1 % (11.5-17.5)
[2021-05-25 06:23] LABS: Chloride 105 mmol/L (98-107)
[2021-05-25 06:24] LABS: Potassium 3.5 mmoL/L (3.5-5.1); Sodium 138 mmol/L (136-145)
[2021-05-25 06:27] LABS: Anion Gap 8.5 mEq/L (5-15); Blood Urea Nitrogen 14 mg/dl (9-20); Calcium 8.3 mg/dl (8.4-10.2); Carbon Dioxide 28 mmol/L (22.0-30.0); Creatinine Clearance Estimated 51 mL/min (50-200); Estimated Glomerular Filt Rate 159 ml/min (>60); GFR (African American) 193 ML/MIN (>60); Glucose 85 mg/dl (74-100)
[2021-05-25 08:00] VITALS: BP 145/72; PULSE 81; RESP 16; TEMP 36.9; O2SAT 94
--- NOTE | 2021-05-25 08:55 | HMH.DCSUM ---
General - General Admission date:: 05/23/21 Discharge date: 05/25/21 HPI HPI: 81-year-old male presented to the emergency department with his due to coffee-ground emesis at home. CT scan showed some gastric and intestinal abnormalities. Due to concern for GI bleed patient was admitted. H&H is decreased overnight. General surgeon has been consulted for EGD. 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 Patient had a 24-day hospitalization at [facility] in [place] followed by 20-day rehabilitation at [facility] after having multiple strokes during hospitalization. Patient required feeding tube which is still in place to help maintain weight although he is able to eat meals currently. Patient reports to me overnight he developed diarrhea which he initially attributed to having been given an enema yesterday prior to arrival. Stool studies are positive for EPEC. Patient denies having fevers. He denies melena or hematochezia Hospital Course Hospital Course: Patient was in monitoring of H&H and general surgical consultation for EGD. Patient's H&H initially declined with hemoglobin dropping from 14.9-12.1. Patient underwent EGD by Dr. Baker on the morning of May 24 with findings as follows: indings:: PEG bumper in good position with no obvious bleeding No obvious ulceration Apparent old blood mixed with bile within gastric lumen Patchy gastritis No sign of active hemorrhage No obvious blood in the small bowel Patient was continued on proton pump inhibitors. Diet was advanced which patient tolerated. H&H remained stable with discharge hemoglobin of 11.8. Patient was discharged home and will follow up in the office on May 28. Patient developed diarrhea after admission with stool being positive for enteropathogenic E. coli. By the day of discharge diarrhea was nearly resolved. Objective Vital signs: Temp Pulse Resp BP Pulse Ox 98.3 F 77 17 143/78 H 95 05/25/21 04:00 05/25/21 04:00 05/25/21 04:00 05/25/21 04:00 05/25/21 04:00 no acute distress - *Routine Respiratory Exam Present: CTA bilaterally - *Routine Cardiovascular Exam Present: RRR - *Routine Abdominal Exam Present: soft, normoactive bowel sounds, other (PEG tube in place). Absent: tenderness Results Labs on day of discharge: Labs from last 24 hours 05/25/21 05/25/21 05/24/21 05:50 05:50 16:09 WBC 6.0 D RBC 4.23 L Hgb 11.8 L 11.5 L Hct 36.9 L 35.4 L MCV 87.1 MCH 27.8 MCHC 31.9 RDW 16.1 Plt Count 163 MPV 9.7 Neut % (Auto) 67.4 Lymph % (Auto) 22.1 Bremer % (Auto) 7.9 Eos % (Auto) 2.1 Baso % (Auto) 0.5 Neut # (Auto) 4.1 Lymph # (Auto) 1.3 Bremer # (Auto) 0.5 Eos # (Auto) 0.1 Baso # (Auto) 0.0 Sodium 138 Potassium 3.5 Chloride 105 Carbon Dioxide 28 Anion Gap 8.5 BUN 14 Creatinine 0.50 L Estimated Creat Clear 51 Estimated GFR 159 Est GFR ( Amer) 193 D Glucose 85 Calcium 8.3 L DS: Diagnosis - Discharge Diagnosis (1) UGIB (upper gastrointestinal bleed) Status: Resolved (2) E coli enteritis Status: Resolved (3) Hypokalemia Status: Resolved Discharge Plan - Patient Discharge Instructions ACTIVITY: Continue current activity DIET: continue same diet Patient Instructions: DI for Gastrointestinal Bleeding, Gastrointestinal Bleeding - Follow up Plan Follow up with: Beltran Batista MD [Primary Care Provider] - 05/28/21 11:00 am Disposition: Home, Self-Care Condition at discharge:: Stable Home Medications: Home Medications Medication Instructions Recorded Confirmed Type Atorvastatin Calcium [Atorvastatin 40 mg PO DAILY 02/22/19 05/23/21 History 40mg Tab] lisinopril 10 mg tablet 10 mg PO DAILY tab 02/20/20 05/23/21 History amlodipine 5 mg tablet 5 mg PO
== END 2021-05-25 10:48 | disposition home or self-care (01) ==
LOC: ER 18:25 → 2ND 18:35
PROVIDERS: Surgery; Admitting Provider Internal Medicine Adolescent Medicine; Emergency Provider Family Medicine; PCP Family Medicine; Visit Provider Family Medicine
PROC: 0DJ08ZZ Inspection of Upper Intestinal Tract, Via Natural or Artificial Opening Endoscopic (ICD-10-PCS; CPT 43235; principal; 2021-05-24 09:00)
DX: K52.89 Other specified noninfective gastroenteritis and colitis (principal); I50.9 Heart failure, unspecified; Z20.822 Contact with and (suspected) exposure to COVID-19; K92.2 Gastrointestinal hemorrhage, unspecified; I11.0 Hypertensive heart disease with heart failure; Z79.899 Other long term (current) drug therapy; Z95.1 Presence of aortocoronary bypass graft; Z95.5 Presence of coronary angioplasty implant and graft; E87.6 Hypokalemia; Z86.73 Personal history of transient ischemic attack (TIA), and cerebral infarction without residual deficits; Z85.038 Personal history of other malignant neoplasm of large intestine
CPT/HCPCS: 43239; G0378; 36415; 74174; 76705; 80048; 80053; 82272; 83690; 84484; 85007; 85014; 85018; 85025; 87506; 88305; 99284; C9803; G0328; J2405; Q9967; U0003; U0005

== ENCOUNTER → 2021-06-06 10:27 | Outpatient (POV) | payer MEDICARE, OTHER, SELFPAY ==
[2021-06-06 10:44] VITALS: BP 116/67; PULSE 97; RESP 18; O2SAT 97; BMI 20.5
--- NOTE | 2021-06-06 10:55 | HMH.PAINSOAP ---
[facility] Pain Management SOAP Note Subjective:: Patient is an 81-year-old white male who presents today for follow-up. Patient underwent a left SI corner lock stabilization procedure on 03/29/2021. He is continuing to have significant pain over his left buttock and left low back area. The pain is made worse with standing and walking. He does have a raised area noted to the left buttock. He reports he is continuing to do physical therapy with frequent squat exercises. He denies any recent trauma, falls, or pain immediately following physical therapy. He says that the pain is continuing to worsen. He is leaning forward for ambulation. He does not feel he got any relief following the corner lock procedure. He does rate his pain a 7 out of 10. The patient was given [place] immediately following the surgery, but has not taken all of the medication. He has not had any recent imaging of the area status post procedure. He has tried using ice and heat therapies which have not given him any significant relief. He did undergo injective therapy to the area with minimal relief. Patient is reporting a popping sensation to his left buttock area with ambulation. Review of Systems General: No recent weight changes, no fever, no sleep disturbances Respiratory: No cough, no shortness of air, no recurring pulmonary infections Cardiovascular/peripheral vascular: No chest pain, no palpitations, no edema, no shortness of breath Gastrointestinal: No new onset incontinence, normal bowel movements reported Genitourinary: No new onset incontinence Musculoskeletal: Left low back pain, left buttock pain made worse with standing and walking, popping sensation made worse with walking Psychiatric: [Normal mood/affect] Neurological: [Denies weakness in extremities], [denies balance issues] Objective:: Physical exam General: Alert and oriented x3, no acute distress, pleasant and cooperative Lungs: Respirations even and unlabored, symmetrical chest expansion Eyes: PERRL Musculoskeletal: Flexion and extension of lumbar [spine] somewhat guarded secondary to pain, [antalgic gait noted] Neurological: Speech clear, no gross sensory deficit Assessment:: Left buttock pain, left low back pain, sacroiliitis left Plan:: Dr. Jimenez was contacted regarding the patient. We will send the patient for an x-ray of the pelvis and SI joint. Patient is denying any recent trauma, falls, or changes in pain during physical therapy. We will obtain the x-rays and discuss a further plan of care after review of x-rays. We will also order the patient prednisone 20 mg 1 tablet p.o. twice daily for 5 days. We will contact the patient regarding the imaging once results are received. We will contact patient at phone number [phone]. Patient has been instructed to contact the clinic with any concerns before the next appointment. Dr. Jimenez has reviewed this note and agrees with this plan of care. This note was dictated using voice recognition software and make contain errors or omissions. [facility] History I have reviewed the patient's past medical history: Yes Medical History: Reports:: Arrhythmia, Cancer, Carotid Stenosis, Congestive Heart Failure, Coronary Artery Disease, Cerebrovascular Accident, Gastroesophageal Reflux Disease(GERD), Heart Murmur, Hyperlipidemia, Hypertension, Myocardial Infarction, Transient Ischemic Attacks (TIA), Valvular Heart Disease Denies:: Diabetes Mellitus Type 1, Diabetes Mellitus Type 2, Internal Pacemaker, Lung Disease, MRSA, Seizures *Have you ever received a pneumonia vaccine?: No *Have you received a flu vaccine this season?: No Other Medical History: Reports: Arthritis, Chemotherapy, Liver Disease. Denies: Blood Transfusion Reaction Other Surgeries: Yes: No Previous Surgery, CABG, Cancer Surgery, Cardiac Catheterization, Cardiac Surgery, Cholecystectomy, Colonoscopy, Colon Resection, Coronary Stent, EGD, Hernia Repair, Open Heart Surgery, Other Valve
--- NOTE | 2021-06-06 10:59 | XR_ITS ---
PROCEDURE: XR PELVIS 1-2V SI joints CLINICAL INDICATION: SI JOINT PAIN COMPARISON: CT CT ANGIO ABDOMEN PELVIS from 05/23/2021 CR XR SACROILIAC JOINT BI MIN 3V from 06/06/2021 TECHNIQUE: XR Pelvis AP View AP oblique and ankle views of the SI joints FINDINGS: SI joints: Postsurgical changes left SI joint with 2 hyperdense implantable device is at the left SI joint region. There is a small sclerotic focus along the superior aspect of the right ilium consistent with a bone island. Sclerosis involves the mid aspect of the right SI joint. No lytic changes apparent. No fracture or dislocation. Pelvis: No fracture or dislocation. There are minor osteoarthritic changes of the hips. No significant degenerative change. No lytic or blastic change. IMPRESSION: SI joints: Sclerosis involving the mid aspect of the SI joint on the right and mid to lower aspect of the left SI joint. 2 implantable devices are present in the left SI joint region Pelvis: Mild osteoarthritic changes of the hips. Probable bone island right ilium. Dictated by: Grey Viveros MD 06/06/2021 13:33 Grey Viveros MD in [place] 06/06/2021 13:33
== END ==
PROVIDERS: Visit Provider Clinical Nurse Specialist Family Health
DX: M54.50 Low back pain, unspecified (principal); M46.1 Sacroiliitis, not elsewhere classified; M79.659 Pain in unspecified thigh
CPT/HCPCS: 72170; 72202; 99212; G0463

== ENCOUNTER → 2021-07-11 10:21 | Outpatient (POV) | payer MEDICARE, OTHER, SELFPAY ==
[2021-07-11 10:37] VITALS: BP 115/73; PULSE 81; RESP 18; O2SAT 95; BMI 20.5
--- NOTE | 2021-07-11 11:38 | HMH.PAINSOAP ---
[facility] Pain Management SOAP Note Subjective:: Patient is an 81-year-old white male who presents today for follow-up. The patient has had a left SI stabilization procedure that was performed on 03/29/2021. Since his procedure he has continued to have significant pain to his left buttock. He has had a left SI joint injection to the area that gave him short-term relief. We did schedule him with Dr. Jimenez. Dr. Jimenez felt the pain was related to his hips. Imaging was ordered and the patient was referred to orthopedics with Dr. Vergara. Dr. Vergara says that his pain is not stemming from his hips. He does feel it is directly related to his SI joint. He has advised the patient that he will likely need a fusion to the area if his pain continues. Patient says his pain is worse when he is standing and walking. He has 1 specific area that causes him significant pain. He has had compounding cream ordered for him which did not give much relief. He is also being given [place] which did not help with the pain. He has tried ice and heat therapies and continues with home stretching and physical therapy. Today, he rates his pain a 6 out of 10. Patient does have a history of multiple strokes causing him to have right-sided facial drooping along with difficulty abuse right upper and lower extremity. Review of Systems General: No recent weight changes, no fever, no sleep disturbances Respiratory: No cough, no shortness of air, no recurring pulmonary infections Cardiovascular/peripheral vascular: No chest pain, no palpitations, no edema, no shortness of breath Gastrointestinal: No new onset incontinence, normal bowel movements reported Genitourinary: No new onset incontinence Musculoskeletal: Left low back and left buttock pain Psychiatric: [Normal mood/affect] Neurological: [Denies weakness in extremities], [denies balance issues] Objective:: Physical exam General: Alert and oriented x3, no acute distress, pleasant and cooperative Lungs: Respirations even and unlabored, symmetrical chest expansion Eyes: PERRL Musculoskeletal: Flexion and extension of lumbar [spine] somewhat guarded secondary to pain, [antalgic gait noted], positive Brandi's test, positive compression test, positive distraction test, positive Silvia's test?left side Neurological: Speech clear, no gross sensory deficit Assessment:: Sacroiliitis left, left low back pain, left buttock pain Plan:: We will schedule patient for left SI joint injection. If he does not get relief, he will likely need to undergo CT scan of his pelvis and referral to surgeon of Dr. Vergara's choice for possible fusion of left SI joint. He will undergo a left SI joint injection with Dr. Cardenas tomorrow. Possible side effects of corticosteroids have been discussed with the patient. Risks and benefits of the procedure have been explained to the patient. Patient would like to proceed with the procedure. Patient has been instructed to contact the clinic with any concerns before the next appointment. Dr. Jimenez has reviewed this note and agrees with this plan of care. This note was dictated using voice recognition software and make contain errors or omissions. [facility] History I have reviewed the patient's past medical history: Yes Medical History: Reports:: Arrhythmia, Cancer, Carotid Stenosis, Congestive Heart Failure, Coronary Artery Disease, Cerebrovascular Accident, Gastroesophageal Reflux Disease(GERD), Heart Murmur, Hyperlipidemia, Hypertension, Myocardial Infarction, Transient Ischemic Attacks (TIA), Valvular Heart Disease Denies:: Diabetes Mellitus Type 1, Diabetes Mellitus Type 2, Internal Pacemaker, Lung Disease, MRSA, Seizures *Have you ever received a pneumonia vaccine?: Yes *Have you received a flu vaccine this season?: Yes Other Medical History: Reports: Arthritis, Chemotherapy, Liver Disease. Denies: Blood Transfusion Reaction Other Surgeries: Yes: No Previous Surgery, CABG, Cancer Surgery, C
== END ==
PROVIDERS: Visit Provider Clinical Nurse Specialist Family Health
DX: M46.1 Sacroiliitis, not elsewhere classified (principal); M54.59 Other low back pain
CPT/HCPCS: 99212; G0463

== ENCOUNTER 2021-07-12 09:01 | Day surgery (SDC) | payer MEDICARE, OTHER, SELFPAY ==
[2021-07-12 09:18] VITALS: BP 168/81; PULSE 87; RESP 18; TEMP 36.3; O2SAT 95; BMI 21.2
[2021-07-12 09:35] VITALS: BP 140/79; PULSE 78; RESP 18; O2SAT 98
[2021-07-12 09:36] VITALS: BP 148/78; PULSE 77; RESP 18; O2SAT 98
[2021-07-12 09:46] VITALS: BP 147/78; PULSE 75; RESP 20; O2SAT 96
--- NOTE | 2021-07-12 09:55 | P.PCN_ITS ---
- Procedure Date: 07/12/21 Time: 09:55 Anesthesiologist:: Kelly Cardenas MD Complications:: None Pre-procedure Diagnosis:: Left-sided sacroiliitis, left-sided low back pain, left-sided hip pain Post-procedure Diagnosis:: Same Indications for Procedure:: Patient is a very pleasant 81-year-old white male who presents today with left- sided low back and hip pain related to the above diagnosis. He has tried and failed conservative treatment including oral pain medications and home stretching program for greater than 6 weeks. Of note, the patient has previously undergone a corner lock procedure on the left sacroiliac joint but unfortunately he states that he did not receive much pain relief and continues to experience significant pain. He has also been evaluated by an orthopedic s urgeon who has ruled out left-sided intra-articular hip pathology. The plan for today is for the patient to undergo a left-sided SI joint injection under fluoroscopy. Procedure Details:: Informed consent was obtained and the risks and benefits of the procedure was explained to the patient. Patient was taken to the procedure room. Patient was placed prone on the procedure table. The left hip was prepped using ChloraPrep. The skin and subcutaneous tissues were anesthetized using lidocaine. I placed a 22-gauge spinal needle into the inferior aspect of the left SI joint. Needle placement was confirmed with dye. After this we injected 5 mL bupivacaine 0.25% and Depo-Medrol 40 mg into the left SI joint. The patient tolerated the procedure well with no complication. Plan and Disposition:: Follow-up with this patient in 2 weeks will reevaluate pain symptoms at that time.
== END 2021-07-12 09:48 | disposition home or self-care (01) ==
LOC: SC.PAINP 09:04
PROVIDERS: PCP Family Medicine; Visit Provider Anesthesiology Pain Medicine
DX: M46.1 Sacroiliitis, not elsewhere classified (principal); M54.50 Low back pain, unspecified; M25.552 Pain in left hip; E78.5 Hyperlipidemia, unspecified; I10 Essential (primary) hypertension; F32.A Depression, unspecified; Z86.73 Personal history of transient ischemic attack (TIA), and cerebral infarction without residual deficits; Z95.5 Presence of coronary angioplasty implant and graft; Z79.899 Other long term (current) drug therapy
CPT/HCPCS: 27096; G0260; J1040; Q9966

== ENCOUNTER → 2021-07-29 10:46 | Outpatient (POV) | payer MEDICARE, OTHER, SELFPAY ==
[2021-07-29 11:26] VITALS: BP 136/74; PULSE 73; RESP 18; O2SAT 97; BMI 21.2
--- NOTE | 2021-07-29 11:32 | HMH.PAINSOAP ---
[facility] Pain Management SOAP Note Subjective:: Patient is an 81-year-old white male who presents today for follow-up. The patient has had a left corner lock. He does report to got minimal relief with that procedure. He recently underwent a left side SI injection. He says that his pain is currently a 5 out of 10. The injection did give him significant relief. He is complaining today of right knee pain. He has had a right intra-articular knee injection as well as genicular blocks to the right knee. He got significant relief with the geniculate block, but pain has returned. He is having difficulty with mobility and with prolonged standing due to pain in the right knee. Patient is requesting to proceed with an RFA right knee. Today, he rates his pain a 5 out of 10. Patient is complaining of bilateral low back pain with radiation into bilateral hips. While he does say he got significant relief with the left SI injection, he is complaining of pain returning to the left side as well as to the right side now. He is tender to palpation to the area. He does continue with home stretching. Review of Systems General: No recent weight changes, no fever, no sleep disturbances Respiratory: No cough, no shortness of air, no recurring pulmonary infections Cardiovascular/peripheral vascular: No chest pain, no palpitations, no edema, no shortness of breath Gastrointestinal: No new onset incontinence, normal bowel movements reported Genitourinary: No new onset incontinence Musculoskeletal: Continued right knee pain, bilateral low back pain with radiation into bilateral buttock and hips Psychiatric: [Normal mood/affect] Neurological: [Denies weakness in extremities], [denies balance issues] Objective:: Physical exam General: Alert and oriented x3, no acute distress, pleasant and cooperative Lungs: Respirations even and unlabored, symmetrical chest expansion Eyes: PERRL Musculoskeletal: Flexion and extension of lumbar [spine] and right lower extremity somewhat guarded secondary to pain, [antalgic gait noted] positive Brandi's test, positive Silvia's test, positive distraction test, positive Talha test Neurological: Speech clear, no gross sensory deficit Assessment:: Bilateral sacroiliitis, osteoarthritis right knee, right knee pain Plan:: Patient would like to proceed with RFA right knee. He has had genicular block to the right knee and got significant relief at about 80%. The patient's pain did return. He rates his pain a 5 out of 10 today. He does have limited mobility due to pain to the right knee. We will proceed with a right knee RFA. Following the RFA right knee, he would like to discuss bilateral SI joint injections. We will see him back after the RFA for further evaluation. Risks and benefits of the procedure have been explained to the patient. Patient would like to proceed with the procedure. Patient has been instructed to contact the clinic with any concerns before the next appointment. Dr. Jimenez has reviewed this note and agrees with this plan of care. This note was dictated using voice recognition software and make contain errors or omissions. [facility] History I have reviewed the patient's past medical history: Yes Medical History: Reports:: Arrhythmia, Cancer, Carotid Stenosis, Congestive Heart Failure, Coronary Artery Disease, Cerebrovascular Accident, Gastroesophageal Reflux Disease(GERD), Heart Murmur, Hyperlipidemia, Hypertension, Myocardial Infarction, Transient Ischemic Attacks (TIA), Valvular Heart Disease Denies:: Diabetes Mellitus Type 1, Diabetes Mellitus Type 2, Internal Pacemaker, Lung Disease, MRSA, Seizures *Have you ever received a pneumonia vaccine?: Yes *Have you received a flu vaccine this season?: Yes Other Medical History: Reports: Arthritis, Chemotherapy, Liver Disease. Denies: Blood Transfusion Reaction Other Surgeries: Yes: No Previous Surgery, CABG, Cancer Surgery, Cardiac Catheterization, Cardiac Ordoñez
== END ==
PROVIDERS: Visit Provider Clinical Nurse Specialist Family Health
DX: M46.1 Sacroiliitis, not elsewhere classified (principal); M17.11 Unilateral primary osteoarthritis, right knee
CPT/HCPCS: 99212; G0463

== ENCOUNTER → 2021-08-14 12:57 | Outpatient (CLI) | payer MEDICARE, OTHER, SELFPAY ==
--- NOTE | 2021-08-14 12:58 | CT_ITS ---
FINAL REPORT CLINICAL HISTORY: left hip pain FINDINGS: CT LEFT HIP WITHOUT CONTRAST Technique: Axial images through the left hip were performed by computed tomography. Sagittal and coronal reconstruction images were performed. This study was performed with techniques to keep radiation doses as low as reasonably achievable (ALARA). Individualized dose reduction techniques using automated exposure control or adjustment of mA and/or kV according to the patient's size were employed. No fracture is identified. No dislocation identified. There are mild degenerative changes. The musculature is intact. There are postoperative changes from fusion of the left SI joint. IMPRESSION: Mild degenerative change. Postoperative change from fusion of the left SI joint. Reviewed, Interpreted and Dictated by Christiano Gurrola III, MD Transcribed by Vadim Juarez Authenticated by Christiano Gurrola III, MD on 08/14/2021 03:22:03 PM [facility]
== END ==
PROVIDERS: PCP Family Medicine; Visit Provider Orthopaedic Surgery
DX: M25.552 Pain in left hip (principal)
CPT/HCPCS: 73700

== ENCOUNTER 2021-09-13 10:32 | Day surgery (SDC) | payer MEDICARE, OTHER, SELFPAY ==
[2021-09-13 10:50] VITALS: BP 176/80; PULSE 79; RESP 20; TEMP 36.3; O2SAT 96; BMI 21.2
[2021-09-13 11:02] VITALS: BP 169/84; PULSE 72; RESP 20; O2SAT 97
[2021-09-13 11:04] VITALS: BP 160/80; PULSE 72; RESP 18; O2SAT 94
[2021-09-13 11:15] VITALS: BP 147/86; PULSE 75; RESP 20; O2SAT 98
--- NOTE | 2021-09-13 11:18 | HMH.PMPROC ---
- Procedure Date: 09/13/21 Time: 11:18 Anesthesiologist:: Ron Jimenez MD Complications:: None Pre-procedure Diagnosis:: Sacroiliitis Post-procedure Diagnosis:: Same Indications for Procedure:: This patient is a pleasant 81-year-old white male who presents today for sacroiliitis. He was originally scheduled for RF ablation to the genicular nerves. However his knee pain is not as bad as his bilateral hip pain. He has previously had a left SI joint stabilization. Still has continued left hip pain. He was advised by orthopedics and it was said that this pain is originating from the SI joint. We will do bilateral SI joint injections today to see if he may be a candidate for RF ablation to the SI joints. Procedure Details:: B/L SI joint injection under fluoroscopy Informed consent was obtained and the risks and benefits of the procedure was explained to the patient. The patient was taken to the procedure room and placed prone on the procedure table. The patient was prepped using ChloraPrep. The skin and subcutaneous tissues overlying the SI joints were anesthetized using lidocaine. I placed a 22-gauge needle first in the left SI joint and second in the right SI joint. Needle placement was confirmed with dye. After this we injected 5 mL bupivacaine 0.25% and Depo-Medrol 40 mg into each SI joint. Patient tolerated the procedure well with no complication. Plan and Disposition:: We will follow-up with him in 1 week. Will reevaluate symptoms at that time. He is to call us to let us know if he gets relief from these injections. These are diagnostic injection so if he does get relief we will plan on RF ablation to the left SI joint.
== END 2021-09-13 11:15 | disposition home or self-care (01) ==
LOC: SC.PAINP 10:33
PROVIDERS: PCP Family Medicine; Visit Provider Anesthesiology
DX: M46.1 Sacroiliitis, not elsewhere classified (principal)
CPT/HCPCS: 27096; G0260; J1040; Q9966

== ENCOUNTER 2021-09-20 09:14 | Day surgery (SDC) | payer MEDICARE, OTHER, SELFPAY ==
[2021-09-20 09:26] VITALS: BP 138/70; PULSE 76; RESP 18; TEMP 36.4; O2SAT 95; BMI 21.2
--- NOTE | 2021-09-20 10:11 | HMH.PMPROC ---
- Procedure Date: 09/20/21 Time: 10:11 Anesthesiologist:: Kelly Cardenas MD Complications:: None Pre-procedure Diagnosis:: Sacroiliitis, chronic low back pain, left hip pain Post-procedure Diagnosis:: Same Indications for Procedure:: This patient is a very pleasant 81-year-old white male who presents today with chronic low back and left hip pain related to the above diagnosis. He has trialed and failed conservative treatment including oral pain medications and home stretching program for greater than 6 weeks. He has previously undergone left-sided SI joint stabilization but he continues to experience left hip pain and was evaluated by orthopedics as well who determined that the pain is originating from the SI joint. He has since undergone bilateral SI joint injections under fluoroscopy as well but unfortunately only experienced 70-80% pain relief but short-term pain relief with these injections. The plan for today is for the patient to undergo RFA of the LEFT SI joint under fluoroscopy #1. Procedure Details:: Informed consent was obtained and the risks and benefits of the procedure was explained to the patient. The patient was taken to the procedure room and placed prone on the procedure table. The patient was prepped using ChloraPrep. The skin and subcutaneous tissues overlying the LEFT SI joint was anesthetized using lidocaine. I placed 20-gauge RF needles into the lateral branches of the SI joint. We underwent sensory stimulation and there is no motor stimulation at 3 V. We then anesthetized these levels with lidocaine and Depo-Medrol. I used a total of 40 mg Depo-Medrol. I then burned the lateral branches of the SI joint for 4 minutes at 80?C. Patient tolerated the procedure well with no complications. Plan and Disposition:: Follow-up with this patient in 2 weeks. Will reevaluate pain symptoms at that time.
[2021-09-20 10:17] VITALS: BP 155/77; PULSE 76; RESP 20; O2SAT 96
[2021-09-20 10:22] VITALS: BP 154/72; PULSE 68; RESP 18; O2SAT 96
[2021-09-20 10:47] VITALS: BP 168/82; PULSE 77; RESP 20; O2SAT 97
== END 2021-09-20 10:49 | disposition home or self-care (01) ==
LOC: SC.PAINP 09:16
PROVIDERS: PCP Family Medicine; Visit Provider Anesthesiology Pain Medicine
DX: M46.1 Sacroiliitis, not elsewhere classified (principal); M25.552 Pain in left hip; G89.29 Other chronic pain; M54.50 Low back pain, unspecified; I10 Essential (primary) hypertension; E78.5 Hyperlipidemia, unspecified; Z86.73 Personal history of transient ischemic attack (TIA), and cerebral infarction without residual deficits
CPT/HCPCS: 27096; 64640; G0260; J1040

== ENCOUNTER → 2021-10-10 10:00 | Outpatient (POV) | payer MEDICARE, OTHER, SELFPAY ==
[2021-10-10 10:17] VITALS: BP 168/96; PULSE 74; RESP 20; TEMP 36.6; O2SAT 96; BMI 21.2
--- NOTE | 2021-10-10 13:37 | HMH.PAINSOAP ---
[facility] Pain Management SOAP Note Subjective:: Patient is a pleasant 81-year-old male who presents today for follow-up after a RFA of the left SI joint on September 20, 2021. We have been treating this patient for left SI pain for a while. We already did asacroiliac joint stabilization procedure with the cornerloc system on his left SI. Patient is still complaining of left SI/Hip pain. He says that this pain originates around his left upper buttock and radiates all the way down to his foot. He is also following up with Dr. Powell in October to see if there is something else that he can do. He is currently doing physical therapy. He is also taking Gabapentin 300mg TID for pain. Even with these, he continues to have left hip/SI pain that radiates to his left foot. He is also complaining of right knee pain today. He has been diagnosed with osteoarthritis on bilateral knees and get steroid injections in his knees. General: No recent weight changes, no fever, no sleep disturbances Respiratory: No cough, no shortness of air, no recurring pulmonary infections Cardiovascular/peripheral vascular: No chest pain, no palpitations, no edema, no shortness of breath Gastrointestinal: No new onset incontinence, normal bowel movements reported Genitourinary: No new onset incontinence Musculoskeletal: Left hip pain, bilateral knee pain Psychiatric: [Normal mood/affect] Neurological: [Denies weakness in extremities], [denies balance issues] Objective:: General: Alert and oriented x3, no acute distress, pleasant and cooperative, [on room air] Lungs: Respirations even and unlabored, symmetrical chest expansion Eyes: PERRL Musculoskeletal: Flexion and extension of lumbar [spine] somewhat guarded secondary to pain; tenderness around the left SI joint Neurological: Speech clear, no gross sensory deficit Assessment:: Left sacroiliitis, bilateral osteoarthritis of the knees Plan:: Patient had minimal relief after a left SI RFA. We also have tried multiple left SI injections and a left sacroiliac joint stabilization with no relief of symptoms. He is scheduled to see Dr. Palomino in [place] for an evaluation of his left hip/SI pain. Even with all of these pain interventions, patient is still having significant pain. I will order the patient an MRI Lumbar and MRI Left Hip. At the moment, we will not do any interventions on his left hip until we get an updated imaging. Patient is also complaining of chronic right knee pain. He has been having intra-articular knee injections in the past with no relief. I will schedule the patient for a right genicular nerve block. Risks and benefits of the procedure have been explained to the patient. Patient would like to proceed with the procedure. Patient has been instructed to contact the clinic with any concerns before the next appointment. Dr. Jimenez has reviewed this note and agrees with this plan of care. This note was dictated using voice recognition software and make contain errors or omissions. [facility] History Medical History: Reports:: Arrhythmia, Carotid Stenosis, Congestive Heart Failure, Coronary Artery Disease, Cerebrovascular Accident, Gastroesophageal Reflux Disease(GERD), Heart Murmur, Hyperlipidemia, Hypertension, Myocardial Infarction, Transient Ischemic Attacks (TIA), Valvular Heart Disease Denies:: Cancer, Diabetes Mellitus Type 1, Diabetes Mellitus Type 2, Internal Pacemaker, Lung Disease, MRSA, Seizures *Have you ever received a pneumonia vaccine?: Yes *Have you received a flu vaccine this season?: Yes Other Medical History: Reports: Arthritis, Chemotherapy, Liver Disease. Denies: Blood Transfusion Reaction Other Surgeries: Yes: No Previous Surgery, CABG, Cancer Surgery, Cardiac Catheterization, Cardiac Surgery, Cholecystectomy, Colonoscopy, Colon Resection, Coronary Stent, EGD, Hernia Repair, Open Heart Surgery, Other Valve Replacement, Other (TAVR). No: Pacemaker Amputation: No Fractures:
== END ==
PROVIDERS: Visit Provider Student in an Organized Health Care Education/Training Program
DX: M46.1 Sacroiliitis, not elsewhere classified (principal); M17.0 Bilateral primary osteoarthritis of knee
CPT/HCPCS: 99212; G0463

== ENCOUNTER 2021-10-18 11:29 | Day surgery (SDC) | payer MEDICARE, OTHER, SELFPAY ==
[2021-10-18 11:31] VITALS: BP 145/79; BP 160/74; BP 163/79; PULSE 69; PULSE 70; RESP 18; RESP 20; TEMP 36.3; O2SAT 97; O2SAT 98; BMI 22.0
--- NOTE | 2021-10-18 11:43 | P.PCN_ITS ---
- Procedure Date: 10/18/21 Time: 11:43 Anesthesiologist:: Kelly Cardenas MD Complications:: None Pre-procedure Diagnosis:: Right knee osteoarthritis, right knee pain Post-procedure Diagnosis:: Same Indications for Procedure:: Patient is a very pleasant 81-year-old white male who presents today with right- sided knee pain related to the above diagnosis. He has tried and failed conservative treatment including oral pain medications and home stretching program for greater than 6 weeks. He has previously undergone RFA of the left SI joint on September 20, 2021 but unfortunately he states that he did not experience much relief after this injection. He has also previously undergone sacroiliac joint stabilization procedure with a corner lock system on the left SI joint as well. He is scheduled to follow-up with Dr. Matthew aguilar in October to see if there is something else he can do in regards to treatment options. He is currently doing physical therapy and is currently prescribed gabapentin 300 mg 3 times daily for pain. The plan for today is for the patient to undergo right- sided genicular nerve block injections under fluoroscopy. Procedure Details:: Informed consent was obtained and the risk and benefits of the procedure was explained to the patient. The patient was taken to the procedure room. The right knee was prepped using ChloraPrep. I placed 22-gauge needles into the area of the right superior medial genicular nerve, right superior lateral genicular nerve and right inferior medial genicular nerve. Needle placement was confirmed in AP and lateral views with dye. We then injected bupivacaine 0.25% 3 mL's and Depo-Medrol 25 mg into each area of the right superior medial genicular nerve, right superior lateral genicular nerve and right inferior medial genicular nerve. Patient tolerated the procedure well with no complications. Plan and Disposition:: Follow-up with this patient in 2 weeks. Will reevaluate pain symptoms at that time.
[2021-10-18 12:22] VITALS: BP 150/83; PULSE 70; RESP 20; O2SAT 97
== END 2021-10-18 12:23 | disposition home or self-care (01) ==
LOC: SC.PAINP 11:30
PROVIDERS: PCP Family Medicine; Visit Provider Anesthesiology Pain Medicine
DX: M17.11 Unilateral primary osteoarthritis, right knee (principal); I25.10 Atherosclerotic heart disease of native coronary artery without angina pectoris; K21.9 Gastro-esophageal reflux disease without esophagitis; E78.5 Hyperlipidemia, unspecified; I10 Essential (primary) hypertension; I25.2 Old myocardial infarction; M19.90 Unspecified osteoarthritis, unspecified site; I49.9 Cardiac arrhythmia, unspecified; Z86.73 Personal history of transient ischemic attack (TIA), and cerebral infarction without residual deficits
CPT/HCPCS: 64454; J1040

== ENCOUNTER → 2021-10-21 13:02 | Outpatient (CLI) | payer MEDICARE, OTHER, SELFPAY | PROVIDERS: PCP Family Medicine; Visit Provider Student in an Organized Health Care Education/Training Program | DX: M25.552 Pain in left hip (principal); M54.50 Low back pain, unspecified ==

== ENCOUNTER 2021-10-26 09:47 | Inpatient (IN) | payer MEDICARE, OTHER, SELFPAY ==
[2021-10-26] VITALS (12 sets, daily range): BP systolic 135–175; BP diastolic 70–93; PULSE 77–92; RESP 14–17; TEMP 36.6–37.7; O2SAT 92–98; BMI 22.0; BMI 20.7
--- NOTE | 2021-10-26 10:06 | PC.NURSE ---
ED MD at
--- NOTE | 2021-10-26 10:10 | CT_ITS ---
PROCEDURE INFORMATION: Exam: CT Abdomen And Pelvis With Contrast Exam date and time: 10/26/2021 10:41 AM Age: 81 years old Clinical indication: Abdominal pain; Acute TECHNIQUE: Imaging protocol: Computed tomography of the abdomen and pelvis with contrast. Radiation optimization: All CT scans at this facility use at least one of these dose optimization techniques: automated exposure control; mA and/or kV adjustment per patient size (includes targeted exams where dose is matched to clinical indication); or iterative reconstruction. Contrast material: ISOVUE; Contrast volume: 75 ml; Contrast route: IV; COMPARISON: CT ANGIO ABDOMEN PELVIS 05/23/2021 3:57 PM FINDINGS: Tubes, catheters and devices: Peg tube in the stomach. Lungs: Patchy airspace density partially visualized in the superior segment right lower lobe. May be pneumonia, additional imaging necessary. Pleural spaces: Small right pleural effusion. Diaphragm: Small hiatal hernia. Liver: Normal. No mass. Gallbladder and bile ducts: Previous cholecystectomy. Pancreas: Normal. No ductal dilation. Spleen: Normal. No splenomegaly. Adrenal glands: Normal. No mass. Kidneys and ureters: Normal. No hydronephrosis. Stomach and bowel: Colonic distention with gas and stool, similar in appearance to previous examination. Distended small bowel loops with fluid in the right lower quadrant, more prominent than previous. Gradual tapering to the rectosigmoid region, with anastomosis at this level. Early obstruction suspected. Appendix: No evidence of appendicitis. Intraperitoneal space: Unremarkable. No free air. No significant fluid collection. Vasculature: Unremarkable. No abdominal aortic aneurysm. Lymph nodes: Unremarkable. No enlarged lymph nodes. Urinary bladder: Unremarkable as visualized. Reproductive: Unremarkable as visualized. Bones/joints: Unremarkable. No acute fracture. Soft tissues: Unremarkable. IMPRESSION: 1. Patchy airspace density partially visualized in the superior segment right lower lobe. May be pneumonia, additional imaging necessary. 2. Small right pleural effusion. 3. Colonic distention with gas and stool, similar in appearance to previous examination. Distended small bowel loops with fluid in the right lower quadrant, more prominent than previous. Gradual tapering to the rectosigmoid region, with anastomosis at this level. Early obstruction suspected.
[2021-10-26 10:22] LABS: Basophils # 0.2 K/mm3 (0-0.2); Basophils % 1.3 % (0.1-2.0); Eosinophils % 0.1 % (0.1-12.0); Hematocrit 46.3 % (42.0-52.0); Hemoglobin 15.6 g/dL (14.1-18.0); Lymphocytes # 0.7 K/mm3 (0.7-4.5); Lymphocytes % 4.3 % (10-50); Mean Corpuscular HGB Conc 33.7 g/dL (31.8-35.4); Mean Corpuscular Hemoglobin 30.7 pg (27.0-31.2); Mean Platelet Volume 9.2 fl (7.4-10.4); Monocytes # 0.8 K/mm3 (0.1-1.0); Monocytes % 4.9 % (1.7-9.3); Neutrophils # 14.3 K/mm3 (1.8-7.8); Neutrophils % 89.4 % (37.0-80.0); Platelet Count 174 K/mm3 (142-424); Red Blood Count 5.08 M/mm3 (4.60-6.20); Red Cell Distribution Width 14.6 % (11.5-17.5)
[2021-10-26 10:27] LABS: Alanine Aminotransferase 32 U/L (12-78); Albumin/Globulin Ratio 1.5 (1.1-1.8); Alkaline Phosphatase 101 U/L (38-126); Anion Gap 9.5 mEq/L (5-15); Aspartate Amino Transferase 40 U/L (17-59); Bilirubin,Total 2.7 mg/dl (0.2-1.3); Blood Urea Nitrogen 22 mg/dl (9-20); Calcium 8.7 mg/dl (8.4-10.2); Carbon Dioxide 30 mmol/L (22.0-30.0); Chloride 103 mmol/L (98-107); Creatinine Clearance Estimated 53 mL/min (50-200); Estimated Glomerular Filt Rate 129 ml/min (>60); GFR (African American) 156 ML/MIN (>60); Globulin 2.6 g/dL (1.3-3.2); Glucose 134 mg/dl (74-100); Potassium 3.5 mmoL/L (3.5-5.1); Sodium 139 mmol/L (136-145); Total Protein,Serum 6.6 g/dl (6.3-8.2)
[2021-10-26 10:29] LABS: MANUAL DIFFERENTIAL MANUAL DIFFERENTIAL (MANUAL DIFF)
[2021-10-26 10:34] LABS: Lactic Acid 1.3 mmol/L (0.7-2.1)
--- NOTE | 2021-10-26 10:40 | PC.NURSE ---
Patient to CT with director radio news by edith
--- NOTE | 2021-10-26 10:52 | PC.NURSE ---
patient back from CT by stretcher with dye lab technician
--- NOTE | 2021-10-26 11:25 | PC.NURSE ---
Dr. Sujey llamas for ED MD
[2021-10-26 11:28] LABS: Lymphocytes % 5 % (10-50); Monocytes % 6 % (2-9); Neutrophils % 89 % (42-76); Total Cells Counted 100
[2021-10-26 11:29] LABS: Platelet Estimate Normal; RBC Morphology Normal
--- NOTE | 2021-10-26 11:30 | PC.NURSE ---
ED MD on phone with Dr Rm
--- NOTE | 2021-10-26 11:34 | PC.NURSE ---
has been paged.
--- NOTE | 2021-10-26 12:32 | HMH.EDGENADL ---
ED Disposition Clinical Impression: Small bowel obstruction Disposition: Admitted As Inpatient Condition on Discharge: Fair - Critical Care Critical Care Time: No Attestation: On 10/26/21, the high probability of a clinically significant, sudden or life threatening deterioration of the following system(s) required my full and direct attention, intervention and personal management. The time I documented below is in addition to time spent performing reported procedures but includes the following listed in this critical care notation. Medical Decision Making - Medical Records Medical records reviewed: Yes: I reviewed the patient's medical records. - [place] Inquiry Pt receiving controlled substance: No [place] was queried for this patient: No Vital Signs: 10/26/21 09:58 10/26/21 10:00 10/26/21 10:30 Temperature 98.3 F Temperature Source Oral Pulse Rate 88 87 Pulse Rate [Left Radial] 86 Respiratory Rate 17 15 16 Blood Pressure 173/90 H 169/87 H Blood Pressure [Right Arm] 175/93 H Blood Pressure Mean 133 135 Blood Pressure Mean [Right Arm] 120 02 Sat by Pulse Oximetry 95 96 98 Oxygen Delivery Method Room Air 10/26/21 11:00 10/26/21 11:30 10/26/21 12:00 Temperature Temperature Source Pulse Rate 84 86 87 Pulse Rate [Left Radial] Respiratory Rate 15 16 15 Blood Pressure 165/82 H 162/84 H 173/93 H Blood Pressure [Right Arm] Blood Pressure Mean 109 110 112 Blood Pressure Mean [Right Arm] 02 Sat by Pulse Oximetry 98 95 96 Oxygen Delivery Method - Lab Data Lab results reviewed: Yes: I reviewed the patient's lab results. Lab Results 10/26/21 10:00: WBC 16.0 H, RBC 5.08, Hgb 15.6, Hct 46.3, MCV 91.0, MCH 30.7, MCHC 33.7, RDW 14.6, Plt Count 174, MPV 9.2, Neut % (Auto) 89.4 H, Lymph % (Auto) 4.3 L, [place] % (Auto) 4.9, Eos % (Auto) 0.1, Baso % (Auto) 1.3, Neut # (Auto) 14.3 H, Lymph # (Auto) 0.7, [place] # (Auto) 0.8, Eos # (Auto) 0.0, Baso # (Auto) 0.2, Total Counted 100, Neutrophils % (Manual) 89 H, Lymphocytes % (Manual) 5 L, Monocytes % (Manual) 6, Platelet Estimate Normal, RBC Morphology Normal 10/26/21 10:00: Sodium 139, Potassium 3.5, Chloride 103, Carbon Dioxide 30, Anion Gap 9.5, BUN 22 H, Creatinine 0.60 L, Estimated Creat Clear 53, Estimated GFR 129, Est GFR ( Amer) 156, Glucose 134 H, Calcium 8.7, Total Bilirubin 2.7 H, AST 40, ALT 32, Alkaline Phosphatase 101, Total Protein 6.6, Albumin 4.0, Globulin 2.6, Albumin/Globulin Ratio 1.5 10/26/21 10:00: Lactate 1.3 Result diagrams: 10/26/21 10:00 10/26/21 10:00 Orders (Tests/Meds): ED MEDICATIONS Discontinued Medications Generic Name Dose Route Start Last Admin Trade Name Freq PRN Reason Stop Dose Admin Lactated Ringer's 1,000 mls @ 999 mls/hr 10/26/21 10:15 10/26/21 10:38 Lactated Ringer's 1000 Ml Bag IV 10/26/21 11:15 999 mls/hr .Q1H1M BRIDGETT Administration Iopamidol 75 ml 10/26/21 10:55 10/26/21 10:56 Iopamidol-370 (76%);100ml Bottle IV 10/26/21 10:56 75 ml ONCE ONE Administration Morphine Sulfate 4 mg 10/26/21 10:12 10/26/21 10:38 Morphine 4mg/Ml Syringe IV 10/26/21 10:13 4 mg ONCE ONE Administration Ondansetron HCl 4 mg 10/26/21 10:12 10/26/21 10:38 Ondansetron 4mg/2ml Vial IV 10/26/21 10:13 4 mg ONCE ONE Administration Sodium Chloride 10 ml 10/26/21 10:55 10/26/21 10:56 Sodium Chloride 0.9% 10ml Syr (Rad Only) IV 10/26/21 10:56 10 ml ONCE ONE Administration ORDERS Category Date Time Status Urinalysis and Microscopic Stat Lab 10/26/21 10:10 Ordered Medical Decision Narrative: Patient is an 81-year-old male with past medical history of aortic valve repair, section presenting to the ED with abdominal pain. Patient is awake, alert, in mild distress due to pain. Patient is medically stable, afebrile. Patient's physical exam is remarkable for a mildly distended abdomen that is soft. Diffusely tender to palpation with G-tube in cherry
[2021-10-26 12:51] LABS: Coronavirus 19, PCR Not Detected (NotDetected); Influenza A, PCR Not Detected (NotDetected); Influenza B, PCR Not Detected (NotDetected)
--- NOTE | 2021-10-26 13:13 | P.CONPHA_ITS ---
[facility] Pharmacy VTE Monitoring - Patient Demographics Admission date: 10/26/21 Report Date: 10/26/21 Time: 13:13 Allergies/Adverse Reactions: Patient Allergies No Known Allergies Allergy (Verified 10/18/21 11:31) Height: 1.73 m Weight: 65.771 kg Patient Problems: Current Active Problems Small bowel obstruction (Acute) - VTE Risk Labs: VTE Related Lab Results Hgb 15.6 g/dL (14.1-18.0) 10/26/21 10:00 Hct 46.3 % (42.0-52.0) 10/26/21 10:00 Plt Count 174 K/mm3 (142-424) 10/26/21 10:00 BUN 22 mg/dl (9-20) H 10/26/21 10:00 Creatinine 0.60 mg/dl (0.66-1.25) L 10/26/21 10:00 Estimated Creat Clear 53 mL/min (50-200) 10/26/21 10:00 Was VTE Risk Assessment Performed: No Clinical Trial Participant: No - Prophylaxis VTE Prophylaxis Ordered?: Yes Types of VTE Prophylaxis: TEDS Knee High Location of Applied Device: Bilateral Lower Extremeties
--- NOTE | 2021-10-26 14:17 | HMH.PHAINT ---
MEDICATION RECONCILIATION COMPLETE USING EXTERNAL PHARMACY FILL HISTORY AND LIST FROM MOST RECENT MD OFFICE VISIT.
--- NOTE | 2021-10-26 14:28 | HMH.GSCON ---
*Admission Date: 10/26/21 *Reason for consult:: Small bowel obstruction *History of present illness: Asked to see this patient regarding bowel obstruction. He is an 81-year-old male with a complex past medical history. He has a history of cardiac arrhythmia, colon cancer, carotid stenosis, congestive heart failure, coronary artery disease, cerebrovascular accident, GERD, hyperlipidemia, previous myocardial infarction, cerebrovascular accident, aortic valve disease. He underwent aortic valve replacement at [facility] on 12/27/2020 and had issues postoperatively with several strokes with prolonged hospitalization and [facility] rehab stay. During this time he required PEG tube placement. He presented to the emergency department today with a couple day history of diffuse abdominal pain. He states that 3 days ago he had diarrhea which was followed subsequently by obstipation. He did have nausea and vomiting preceding his presentation to the emergency department. He has a PEG tube in place following previous stroke. He underwent CT scan while in the emergency department. Surgery was contacted regarding preliminary findings of possible bowel obstruction. CT scan official reading reveals findings of colonic distention with gas and stool, similar in appearance to previous examination. Distended small bowel loops with fluid in the right lower quadrant, more prominent than previous. Gradual tapering to the rectosigmoid region with anastomosis at this level. Early obstruction suspected . Previous CT examination was 05/23/2021. Apparently the patient has undergone low anterior resection for colon cancer in November [address] Henrik Polacno at [facility]. It appears likely his last colonoscopy was by Dr. Galindo in June 2016. At that time anastomosis was intact and patent. He had a couple of more proximal polyps removed. Since admission patient does state that he had incontinence of stool and his abdomen feels somewhat better. Review of Systems - Review of Systems Review of systems:: pertinent systems reviewed and negative unless documented below [facility] History I have reviewed the patient's past medical history: Yes Medical History: Reports:: Arrhythmia, Carotid Stenosis, Congestive Heart Failure, Coronary Artery Disease, Cerebrovascular Accident, Gastroesophageal Reflux Disease(GERD), Heart Murmur, Hyperlipidemia, Hypertension, Myocardial Infarction, Transient Ischemic Attacks (TIA), Valvular Heart Disease Denies:: Cancer, Diabetes Mellitus Type 1, Diabetes Mellitus Type 2, Internal Pacemaker, Lung Disease, MRSA, Seizures *Have you ever received a pneumonia vaccine?: Yes *Have you received a flu vaccine this season?: Yes Other Medical History: Reports: Arthritis, Chemotherapy, Liver Disease. Denies: Blood Transfusion Reaction Other Surgeries: Yes: No Previous Surgery, CABG, Cancer Surgery, Cardiac Catheterization, Cardiac Surgery, Cholecystectomy, Colonoscopy, Colon Resection, Coronary Stent, EGD, Hernia Repair, Open Heart Surgery, Other Valve Replacement, Other (TAVR). No: Pacemaker Amputation: No Fractures: No - *Social History Smoking Status: Never smoker Alcohol Intake: never Substance Use Type: denies use *Occupational Status:: retired Housing: house Household Members: spouse *Travel in the last 8 weeks: None Family Hx:: No significant family history Meds Home Medications Medication Instructions Recorded Confirmed Type Atorvastatin Calcium [Lipitor 40mg 40 mg PO DAILY 02/22/19 10/26/21 History Tab] lisinopril 10 mg tablet 10 mg PO DAILY tab 02/20/20 10/26/21 History amlodipine 5 mg tablet 5 mg PO DAILY tab 10/25/20 10/26/21 History metoprolol succinate 25 mg 25 mg PO DAILY tab 05/14/21 10/26/21 History tablet,extended release 24 hr Gabapentin 300 mg PO AM 05/24/21 10/26/21 History Omeprazole Magnesium 40 mg PO DAILY #0 05/25/21 10/26/21 Rx Gabapentin 600 mg PO HS 10/26/21 10/26/21 History Marcell
[2021-10-26 14:40] LABS: Microscopic, Urine URINE MICROSCOPIC (MICROSCOPIC)
--- NOTE | 2021-10-26 14:53 | PC.NURSE ---
i admitted pt to the floor at 1430. He is alert but a poor historian, and is unable to recall most past medical history. He Dneies any abdominal pain @ this time but abd is slightly distended and tender twith palpation in lower quads. bs are + and pt had a soft BM when he arrives to the floor. He was incontinent. ambulates independently but gait is unsteady @ times. lungs are CTA.
[2021-10-26 15:24] LABS: Appearance,Urine CLEAR (Clear); Bilirubin,Urine Negative (Negative); Blood, Urine Negative (Negative); Color,Urine YELLOW (Yellow); Glucose,Urine (UA) Negative (Negative); Ketones,Urine Negative (Negative); Leukocyte Esterase,Urine Negative (Negative); Nitrate,Urine POSITIVE (Negative); Protein,Urine Negative (Negative); Urobilinogen,Urine 0.2 EU/dl (0.2)
[2021-10-26 15:30] LABS: WBC,Urine Occasional #/hpf (0-3)
[2021-10-26 15:31] LABS: Bacteria,Urine Trace /lpf
--- NOTE | 2021-10-26 18:34 | PC.NURSE ---
pt is alert but is a poor historian. Speech is hard to understand. reports medication was helpful for pain.
--- NOTE | 2021-10-26 20:20 | PC.NURSE ---
Patient refusing enema at this time. Patient states he has had four BM today and doesn't feel like he needs the enema now.
[2021-10-27 04:00] VITALS: BP 136/70; PULSE 76; RESP 16; TEMP 36.9; O2SAT 94
[2021-10-27 05:41] VITALS: BMI 20.6
--- NOTE | 2021-10-27 06:00 | XR_ITS ---
PROCEDURE INFORMATION: Exam: XR Abdomen Exam date and time: 10/27/2021 5:49 AM Age: 81 years old Clinical indication: Constipation and other: Large bowel obstruction TECHNIQUE: Imaging protocol: XR of the abdomen. Views: 2 Views. Upright and supine views. COMPARISON: CT ABDOMEN PELVIS W CON 10/26/2021 10:41 AM FINDINGS: Tubes, catheters and devices: Gastric tube is present. Gastrointestinal tract: Bowel gas pattern is unremarkable. Intraperitoneal space: No pneumoperitoneum identified. Bones/joints: Unremarkable for age. IMPRESSION: Unremarkable bowel gas pattern.
[2021-10-27 06:48] LABS: Basophils # 0.1 K/mm3 (0-0.2); Basophils % 0.7 % (0.1-2.0); Eosinophils # 0.1 K/mm3 (0.0-0.4); Eosinophils % 0.7 % (0.1-12.0); Hematocrit 46.2 % (42.0-52.0); Hemoglobin 15.2 g/dL (14.1-18.0); Lymphocytes # 2.1 K/mm3 (0.7-4.5); Lymphocytes % 21.1 % (10-50); Mean Corpuscular HGB Conc 32.8 g/dL (31.8-35.4); Mean Corpuscular Hemoglobin 30.4 pg (27.0-31.2); Mean Corpuscular Volume 92.7 fl (80-94); Mean Platelet Volume 9.8 fl (7.4-10.4); Monocytes # 0.6 K/mm3 (0.1-1.0); Monocytes % 5.7 % (1.7-9.3); Neutrophils # 7.2 K/mm3 (1.8-7.8); Neutrophils % 71.8 % (37.0-80.0); Platelet Count 190 K/mm3 (142-424); Red Blood Count 4.99 M/mm3 (4.60-6.20); Red Cell Distribution Width 14.7 % (11.5-17.5)
[2021-10-27 07:03] LABS: Chloride 104 mmol/L (98-107); Sodium 138 mmol/L (136-145)
[2021-10-27 07:04] LABS: Potassium 3.6 mmoL/L (3.5-5.1)
[2021-10-27 07:06] LABS: Blood Urea Nitrogen 25 mg/dl (9-20); Creatinine Clearance Estimated 50 mL/min (50-200); Estimated Glomerular Filt Rate 93 ml/min (>60); GFR (African American) 112 ML/MIN (>60)
[2021-10-27 07:07] LABS: Anion Gap 11.6 mEq/L (5-15); Calcium 8.5 mg/dl (8.4-10.2); Carbon Dioxide 26 mmol/L (22.0-30.0); Glucose 79 mg/dl (74-100)
[2021-10-27 08:00] VITALS: BP 133/69; PULSE 74; RESP 15; TEMP 36.9; O2SAT 96
--- NOTE | 2021-10-27 08:59 | P.PN_ITS ---
Subjective Narrative: Patient denies abdominal pain at this time. He does state that he has had about 4 or 5 bowel movements. Gastrostomy tube has drained 300 cc of thin bilious material. Acute abdominal series reveals normal bowel gas pattern. Patient states that he does eat regular food. He ultimately would like to have the gastrostomy tube removed. He states that he takes 10 a lot of fiber with Konsyl in the morning and Metamucil in the evening. Progress Note: A&P Assessment and Plan for All Diagnoses:: Clamp PEG tube. May have full liquids. It is possible this large amount of fiber is what led to this partial distal colon obstruction. Exam Vital signs and Labs for Last 24 Hours: Temp Pulse Resp BP Pulse Ox 98.4 F 76 16 136/70 94 L 10/27/21 04:00 10/27/21 04:00 10/27/21 04:00 10/27/21 04:00 10/27/21 04:00 Laboratory Results - last 24 hr 10/26/21 10:00: WBC 16.0 H, RBC 5.08, Hgb 15.6, Hct 46.3, MCV 91.0, MCH 30.7, MCHC 33.7, RDW 14.6, Plt Count 174, MPV 9.2, Neut % (Auto) 89.4 H, Lymph % (Auto) 4.3 L, [place] % (Auto) 4.9, Eos % (Auto) 0.1, Baso % (Auto) 1.3, Neut # (Auto) 14.3 H, Lymph # (Auto) 0.7, [place] # (Auto) 0.8, Eos # (Auto) 0.0, Baso # (Auto) 0.2, Total Counted 100, Neutrophils % (Manual) 89 H, Lymphocytes % (Manual) 5 L, Monocytes % (Manual) 6, Platelet Estimate Normal, RBC Morphology Normal 10/26/21 10:00: Sodium 139, Potassium 3.5, Chloride 103, Carbon Dioxide 30, Anion Gap 9.5, BUN 22 H, Creatinine 0.60 L, Estimated Creat Clear 53, Estimated GFR 129, Est GFR ( Amer) 156, Glucose 134 H, Calcium 8.7, Total Bilirubin 2.7 H, AST 40, ALT 32, Alkaline Phosphatase 101, Total Protein 6.6, Albumin 4.0, Globulin 2.6, Albumin/Globulin Ratio 1.5 10/26/21 10:00: Lactate 1.3 10/26/21 12:47: SARS-CoV-2 (PCR) Not detected, Influenza A Untype (PCR) Not detected, Influenza Type B (PCR) Not detected 10/26/21 14:37: Urine Color Yellow, Urine Appearance Clear, Urine pH 7.0, Ur Specific [place] 1.010, Urine Protein Negative, Urine Glucose (UA) Negative, Urine Ketones Negative, Urine Blood Negative, Urine Nitrate Positive, Urine Bilirubin Negative, Urine Urobilinogen 0.2, Ur Leukocyte Esterase Negative, Urine RBC None, Urine WBC Occasional, Ur Squamous Epith Cells None, Urine Bacteria Trace 10/27/21 06:35: WBC 10.0 D, RBC 4.99, Hgb 15.2, Hct 46.2, MCV 92.7, MCH 30.4, MCHC 32.8, RDW 14.7, Plt Count 190, MPV 9.8, Neut % (Auto) 71.8, Lymph % (Auto) 21.1, [place] % (Auto) 5.7, Eos % (Auto) 0.7, Baso % (Auto) 0.7, Neut # (Auto) 7.2, Lymph # (Auto) 2.1, [place] # (Auto) 0.6, Eos # (Auto) 0.1, Baso # (Auto) 0.1 10/27/21 06:35: Sodium 138, Potassium 3.6, Chloride 104, Carbon Dioxide 26, Anion Gap 11.6, BUN 25 H, Creatinine 0.80 D, Estimated Creat Clear 50, Estimated GFR 93, Est GFR ( Amer) 112 D, Glucose 79 D, Calcium 8.5 I & O for Last 24 hours: Intake & Output 10/24/21 10/25/21 10/26/21 10/27/21 11:59 11:59 11:59 11:59 Output Total 500 / 500 Balance -500 / -500 Weight 145 lb 136 lb 1.991 oz - *Routine Abdominal Exam Present: soft. Absent: tenderness
--- NOTE | 2021-10-27 09:22 | HMH.HP ---
*Admission Date: 10/26/21 *Chief complaint: abd pain *History of present illness: this pt was seen in the ed - pt to ed c/o lower abd pain. pt denies any urinary symptoms. pt states he developed nausea overnight and had an episode of emesis this morning. pt states he has not had a bowel movement in 3 days and states he thinks he is constipated. Patient is an 81-year-old male with past medical history of aortic valve repair, bowel resection, stroke with a G-tube in place to the ED with abdominal pain. Patient states that he has had abdominal pain for the past 2 days. The pain is diffuse in nature. Nothing. Pain is associated with constipation. Patient has not had a bowel movement for the past 3 days. Patient is still passing gas. Patient is also having nausea, has had multiple episode of vomiting this morning. G-tube in place however eats by mouth. Patient has not had any fevers or chills. Has not had any chest pain, shortness of breath. pt was found to have sbo and was admitted - [facility] History I have reviewed the patient's past medical history: Yes Medical History: Reports:: Arrhythmia, Carotid Stenosis, Congestive Heart Failure, Coronary Artery Disease, Cerebrovascular Accident, Gastroesophageal Reflux Disease(GERD), Heart Murmur, Hyperlipidemia, Hypertension, Myocardial Infarction, Transient Ischemic Attacks (TIA), Valvular Heart Disease Denies:: Cancer, Diabetes Mellitus Type 1, Diabetes Mellitus Type 2, Internal Pacemaker, Lung Disease, MRSA, Seizures *Have you ever received a pneumonia vaccine?: Yes *Have you received a flu vaccine this season?: Yes Other Medical History: Reports: Arthritis, Chemotherapy, Liver Disease. Denies: Blood Transfusion Reaction Other Surgeries: Yes: No Previous Surgery, CABG, Cancer Surgery, Cardiac Catheterization, Cardiac Surgery, Cholecystectomy, Colonoscopy, Colon Resection, Coronary Stent, EGD, Hernia Repair, Open Heart Surgery, Other Valve Replacement, Other (TAVR). No: Pacemaker Amputation: No Fractures: No - *Social History Last grade of school completed: High school graduate Smoking Status: Never smoker Alcohol Intake: never Substance Use Type: denies use *Occupational Status:: disabled Housing: house Household Members: spouse *Travel in the last 8 weeks: None Family Hx:: Unable to obtain, No significant family history Review of Systems - Review of Systems Review of systems:: pertinent systems reviewed and negative unless documented below - Constitutional Denies fever(s) - Eyes Denies discharge - ENT Denies sore throat - *Cardiovascular Denies chest pain at rest - *Respiratory Denies cough - *Gastrointestinal Reports abdominal pain, Reports nausea, Reports vomiting - *Genitourinary Denies painful urination - *Musculoskeletal Denies joint pain - Integumentary/Breasts Denies rash - *Neurologic Denies headache(s) - Psychiatric Denies depression Meds Home Medications Medication Instructions Recorded Confirmed Type Atorvastatin Calcium [Lipitor 40mg 40 mg PO DAILY 02/22/19 10/26/21 History Tab] lisinopril 10 mg tablet 10 mg PO DAILY tab 02/20/20 10/26/21 History amlodipine 5 mg tablet 5 mg PO DAILY tab 10/25/20 10/26/21 History metoprolol succinate 25 mg 25 mg PO DAILY tab 05/14/21 10/26/21 History tablet,extended release 24 hr Gabapentin 300 mg PO AM 05/24/21 10/26/21 History Omeprazole Magnesium 40 mg PO DAILY #0 05/25/21 10/26/21 Rx Gabapentin 600 mg PO HS 10/26/21 10/26/21 History Allergies Allergy/AdvReac Type Severity Reaction Status Date / Time No Known Allergies Allergy Verified 10/18/21 11:31 Exam Vital signs and Labs for Last 24 Hours: Temp Pulse Resp BP Pulse Ox 98.5 F 74 15 133/69 96 10/27/21 08:00 10/27/21 08:00 10/27/21 08:00 10/27/21 08:00 10/27/21 08:00 Laboratory Results - last 24 hr 10/26/21 10:00: WBC 16.0 H, RBC 5.08, Hgb 15.6, Hct 46.3, MCV 91.0, MCH 30.7, MCHC 33.7, RDW 14.6, Pl
[2021-10-27 16:00] VITALS: BP 150/69; PULSE 70; RESP 14; TEMP 36.6; O2SAT 95
[2021-10-27 20:00] VITALS: BP 149/74; PULSE 63; RESP 16; TEMP 36.8; O2SAT 98
[2021-10-28 04:00] VITALS: BP 140/68; PULSE 64; RESP 16; TEMP 36.9; O2SAT 96
--- NOTE | 2021-10-28 06:18 | PC.NURSE ---
pt has rested majority of the shift, remains on room air, no complaints of SOA or pain, has reported several BMs on day shift, refused 2100 enema
--- NOTE | 2021-10-28 06:32 | P.PN_ITS ---
Subjective Narrative: Patient states that he had diarrhea all night . No complaints. Tolerated minimal full liquids. Progress Note: A&P (1) Small bowel obstruction Status: Acute (2) HTN (hypertension) Status: Acute Assessment and Plan for All Diagnoses:: Advance diet. DC enemas. If tolerates diet should be able to discharge home. Exam Vital signs and Labs for Last 24 Hours: Temp Pulse Resp BP Pulse Ox 98.4 F 64 16 140/68 96 10/28/21 04:00 10/28/21 04:00 10/28/21 04:00 10/28/21 04:00 10/28/21 04:00 Laboratory Results - last 24 hr 10/27/21 06:35: WBC 10.0 D, RBC 4.99, Hgb 15.2, Hct 46.2, MCV 92.7, MCH 30.4, MCHC 32.8, RDW 14.7, Plt Count 190, MPV 9.8, Neut % (Auto) 71.8, Lymph % (Auto) 21.1, [place] % (Auto) 5.7, Eos % (Auto) 0.7, Baso % (Auto) 0.7, Neut # (Auto) 7.2, Lymph # (Auto) 2.1, [place] # (Auto) 0.6, Eos # (Auto) 0.1, Baso # (Auto) 0.1 10/27/21 06:35: Sodium 138, Potassium 3.6, Chloride 104, Carbon Dioxide 26, Anion Gap 11.6, BUN 25 H, Creatinine 0.80 D, Estimated Creat Clear 50, Estimated GFR 93, Est GFR ( Amer) 112 D, Glucose 79 D, Calcium 8.5 I & O for Last 24 hours: Intake & Output 10/25/21 10/26/21 10/27/21 10/28/21 11:59 11:59 11:59 11:59 Intake Total 720 / 720 Output Total 600 / 600 Balance -600 / -600 720 / 720 Weight 145 lb 136 lb 1.991 oz 131 lb 12.8 oz - *Routine Abdominal Exam Present: soft. Absent: tenderness
[2021-10-28 08:00] VITALS: BP 168/89; PULSE 65; RESP 16; TEMP 36.7; O2SAT 95
[2021-10-28 11:35] VITALS: BMI 19.9
--- NOTE | 2021-10-28 14:08 | HMH.DCSUM ---
General - General Admission date:: 10/26/21 Discharge date: 10/28/21 HPI HPI: this pt was seen in the ed - pt to ed c/o lower abd pain. pt denies any urinary symptoms. pt states he developed nausea overnight and had an episode of emesis this morning. pt states he has not had a bowel movement in 3 days and states he thinks he is constipated. Patient is an 81-year-old male with past medical history of aortic valve repair, bowel resection, stroke with a G-tube in place to the ED with abdominal pain. Patient states that he has had abdominal pain for the past 2 days. The pain is diffuse in nature. Nothing. Pain is associated with constipation. Patient has not had a bowel movement for the past 3 days. Patient is still passing gas. Patient is also having nausea, has had multiple episode of vomiting this morning. G-tube in place however eats by mouth. Patient has not had any fevers or chills. Has not had any chest pain, shortness of breath. pt was found to have sbo and was admitted - Hospital Course Hospital Course: Laboratory Tests 10/26/21 10/26/21 10/26/21 10:00 10:00 10:00 WBC 16.0 H RBC 5.08 Hgb 15.6 Hct 46.3 MCV 91.0 MCH 30.7 MCHC 33.7 RDW 14.6 Plt Count 174 MPV 9.2 Neut % (Auto) 89.4 H Lymph % (Auto) 4.3 L [place] % (Auto) 4.9 Eos % (Auto) 0.1 Baso % (Auto) 1.3 Neut # (Auto) 14.3 H Lymph # (Auto) 0.7 [place] # (Auto) 0.8 Eos # (Auto) 0.0 Baso # (Auto) 0.2 Total Counted 100 Neutrophils % (Manual) 89 H Lymphocytes % (Manual) 5 L Monocytes % (Manual) 6 Platelet Estimate Normal RBC Morphology Normal Sodium 139 Potassium 3.5 Chloride 103 Carbon Dioxide 30 Anion Gap 9.5 BUN 22 H Creatinine 0.60 L Estimated Creat Clear 53 Estimated GFR 129 Est GFR ( Amer) 156 Glucose 134 H Lactate 1.3 Calcium 8.7 Total Bilirubin 2.7 H AST 40 ALT 32 Alkaline Phosphatase 101 Total Protein 6.6 Albumin 4.0 Globulin 2.6 Albumin/Globulin Ratio 1.5 Urine Color Urine Appearance Urine pH Ur Specific [place] Urine Protein Urine Glucose (UA) Urine Ketones Urine Blood Urine Nitrate Urine Bilirubin Urine Urobilinogen Ur Leukocyte Esterase Urine RBC Urine WBC Ur Squamous Epith Cells Urine Bacteria SARS-CoV-2 (PCR) Influenza A Untype (PCR) Influenza Type B (PCR) 10/26/21 10/26/21 10/27/21 12:47 14:37 06:35 WBC 10.0 D RBC 4.99 Hgb 15.2 Hct 46.2 MCV 92.7 MCH 30.4 MCHC 32.8 RDW 14.7 Plt Count 190 MPV 9.8 Neut % (Auto) 71.8 Lymph % (Auto) 21.1 [place] % (Auto) 5.7 Eos % (Auto) 0.7 Baso % (Auto) 0.7 Neut # (Auto) 7.2 Lymph # (Auto) 2.1 [place] # (Auto) 0.6 Eos # (Auto) 0.1 Baso # (Auto) 0.1 Total Counted Neutrophils % (Manual) Lymphocytes % (Manual) Monocytes % (Manual) Platelet Estimate RBC Morphology Sodium Potassium Chloride Carbon Dioxide Anion Gap BUN Creatinine Estimated Creat Clear Estimated GFR Est GFR ( Amer) Glucose Lactate Calcium Total Bilirubin AST ALT Alkaline Phosphatase Total Protein Albumin Globulin Albumin/Globulin Ratio Urine Color Yellow Urine Appearance Clear Urine pH 7.0 Ur Specific [place] 1.010 Urine Protein Negative Urine Glucose (UA) Negative Urine Ketones Negative Urine Blood Negative Urine Nitrate Positive Urine Bilirubin Negative Urine Urobilinogen 0.2 Ur Leukocyte Esterase Negative Urine RBC None Urine WBC Occasional Ur Squamous Epith Cells None Urine Bacteria Trace SARS-CoV-2 (PCR) Not detected Influenza A Untype (PCR) Not detected Influenza Type B (PCR) Not detected 10/27/21 06:35 WBC RBC Hgb Hct MCV MCH MCHC RDW Plt Count
--- NOTE | 2021-10-28 15:16 | HMH.PHAINT ---
I spoke with the patient today about his medication list. There were no new medications or changes to his medication list. When we spoke, there were no questions or concerns. The patient was provided a copy of the medication list.
--- NOTE | 2021-10-29 15:54 | CARE MANAGER ---
Spoke with patient and she states that patient is doing well and has no issues at this time.
== END 2021-10-28 15:15 | disposition home or self-care (01) | DRG 390 ==
LOC: ER 09:59 → 2ND 12:37
PROVIDERS: Admitting Provider Family Medicine; Emergency Provider Emergency Medicine; PCP Family Medicine; Visit Provider Family Medicine
DX: K56.609 Unspecified intestinal obstruction, unspecified as to partial versus complete obstruction (principal); I11.0 Hypertensive heart disease with heart failure; I50.9 Heart failure, unspecified; I25.10 Atherosclerotic heart disease of native coronary artery without angina pectoris; Z86.73 Personal history of transient ischemic attack (TIA), and cerebral infarction without residual deficits; E78.5 Hyperlipidemia, unspecified; I25.2 Old myocardial infarction; Z95.5 Presence of coronary angioplasty implant and graft; K21.9 Gastro-esophageal reflux disease without esophagitis; Z95.2 Presence of prosthetic heart valve; Z85.038 Personal history of other malignant neoplasm of large intestine; Z95.1 Presence of aortocoronary bypass graft; I65.29 Occlusion and stenosis of unspecified carotid artery
CPT/HCPCS: 74019; 74177; 80048; 80053; 81001; 83605; 85007; 85025; 96365; 96375; 99285; C9803; J2405; Q9967; U0003; U0005

== ENCOUNTER → 2021-11-05 10:40 | Outpatient (CLI) | payer MEDICARE, OTHER, SELFPAY ==
--- NOTE | 2021-11-05 10:44 | XR_ITS ---
FINAL REPORT CLINICAL HISTORY: abdominal pain COMPARISON: October 27, 2021 FINDINGS: Chest: A single view of the chest demonstrates no acute cardiopulmonary process. There are multiple sternotomy wires. Abdomen: Flat and upright views of the abdomen demonstrate a nonobstructive bowel gas pattern. A gastrostomy tube is present. There is a large amount of retained stool. There are scattered surgical clips in the abdomen. There is no free air. IMPRESSION: Gastrostomy tube in place. Large amount of retained stool. Reviewed, Interpreted and Dictated by Sonny Alva MD Transcribed by Vadim Juarez Authenticated by Sonny Alva MD on 11/05/2021 12:08:[address] [facility]
== END ==
PROVIDERS: PCP Family Medicine; Visit Provider Surgery
DX: R10.9 Unspecified abdominal pain (principal)
CPT/HCPCS: 74021

== ENCOUNTER → 2021-11-10 10:15 | Outpatient (CLI) | payer MEDICARE, OTHER, SELFPAY | PROVIDERS: PCP Family Medicine; Visit Provider Surgery | DX: Z11.52 Encounter for screening for COVID-19 (principal) | CPT/HCPCS: C9803; U0003; U0005 ==

== ENCOUNTER 2021-11-11 09:59 | Day surgery (SDC) | payer MEDICARE, OTHER, SELFPAY ==
[2021-11-07 14:40] VITALS: BMI 20.7
[2021-11-11 10:30] VITALS: BP 163/85; PULSE 71; RESP 18; TEMP 37; O2SAT 98
--- NOTE | 2021-11-11 10:57 | HMH.ANESCL ---
[facility] Anesthesia Checklist - Patient Identification Patient Identification: Arm Band, Family - Structural Data Admitted From: Home Planned Operative Procedure/s: colonoscopy Consent for Planned Operative Procedure(s) Verified: Yes Verified Documents: Surgical Consent, History and Physical - NPO Status Verified Time NPO: 00:00 - Additional verifications Anesthesia Reactions: No Hx Blood Transfusions: No Blood Transfusion Reaction: Yes - Airway Assessment C-Spine Mobility Assessed: Yes (mp2) TMJ Mobility Assessed: Yes Dentition: Good Dentition - Neurological Assessment Level of Consciousness: Awake, Alert - Anesthesia Plan Anesthesia Risk discussed: Yes Anesthesia Plan: Verified ASA Class: III Anesthesia Type: [facility] History I have reviewed the patient's past medical history: Yes Medical History: Reports:: Arrhythmia, Carotid Stenosis, Congestive Heart Failure, Coronary Artery Disease, Cerebrovascular Accident, Gastroesophageal Reflux Disease(GERD), Heart Murmur, Hyperlipidemia, Hypertension, Myocardial Infarction, Transient Ischemic Attacks (TIA), Valvular Heart Disease Denies:: Cancer, Diabetes Mellitus Type 1, Diabetes Mellitus Type 2, Internal Pacemaker, Lung Disease, MRSA, Seizures *Have you ever received a pneumonia vaccine?: Yes *Have you received a flu vaccine this season?: No Other Medical History: Reports: Arthritis, Blood Transfusion Reaction, Chemotherapy, Liver Disease Anesthesia experience/problems:: nac Other Surgeries: Yes: CABG, Cancer Surgery, Cardiac Catheterization, Cardiac Surgery, Cholecystectomy, Colonoscopy, Colon Resection, Coronary Stent, EGD, Hernia Repair, Open Heart Surgery, Other Valve Replacement, Other (TAVR). No: Pacemaker Amputation: No Fractures: No - *Social History Last grade of school completed: High school graduate Smoking Status: Never smoker Alcohol Intake: never Substance Use Type: denies use *Occupational Status:: disabled Housing: house Household Members: spouse *Travel in the last 8 weeks: None Family Hx:: Unable to obtain, No significant family history
[2021-11-11 12:05] VITALS: O2SAT 97
--- NOTE | 2021-11-11 12:36 | HMH.SCOPE ---
- Procedure: Date: 11/11/21 Patient Date of :: 1940 Procedure Performed:: Colonoscopy to terminal ileum with polypectomy using biopsy with dilatation of rectosigmoid stricture to 16.5 mm Indications:: Patient presents for colonoscopy. He was recently hospitalized from 10/26/2021?10/28/21. He is an 81-year-old male with a complex past medical history.? He has a history of cardiac arrhythmia, colon cancer (resection 1997), carotid stenosis, congestive heart failure, coronary artery disease, cerebrovascular accident, GERD, hyperlipidemia, previous myocardial infarction, aortic valve disease.? He underwent aortic valve replacement at [facility] on 12/27/2020 and had issues postoperatively with several strokes with prolonged hospitalization and [facility] rehab stay.? During this time he required PEG tube placement. He presented to the emergency department 10/26/21 with a couple day history of diffuse abdominal pain.? He has a PEG tube in place following previous stroke.? He underwent CT scan while in the emergency department.? Surgery was contacted regarding preliminary findings of possible bowel obstruction.? CT scan official reading revealed findings of colonic distention with gas and stool, similar in appearance to previous examination.? Distended small bowel loops with fluid in the right lower quadrant, more prominent than previous.? Gradual tapering to the rectosigmoid region with anastomosis at this level.? Early obstruction suspected .? Previous CT examination was 05/23/2021.? Apparently the patient has undergone low anterior resection for colon cancer in November [address] Henrik Polanco at [facility].? His last colonoscopy was by Dr. Galindo in June 2016.? At that time anastomosis was intact and patent.? He had a couple of more proximal polyps removed. I saw the patient as a consultation for small bowel obstruction . Patient did not have a small bowel obstruction on imaging but had what appeared to be possible partial distal large bowel obstruction. He was able to be managed nonoperatively. Plan was made for enemas and possible Gastrografin enema for diagnostic and therapeutic purposes. However, the patient's symptoms resolved and he had multiple episodes of diarrhea without intervention. He improved and was doing quite well and was discharged home as an outpatient. After discharge he has had some recurrent symptoms. He describes a lot of lower abdominal gas pain . He also has some loose stools and occasional incontinence of loose stools. Of note, the patient has always taken fiber since his colon resection. He takes a large amount of Metamucil and Konsyl. He states that he is taking less of this since discharge from the hospital. Patient does state that he is scheduled for a follow-up colonoscopy with Dr. Galindo in [place] in several weeks due to his history of polyps on colonoscopy 5 years ago. He wonders if I can do a colonoscopy sooner. Initially the patient was scheduled for earlier colonoscopy with Dr. Galindo. However, given his acute problem with his medical issues was felt that this would best be served locally in the hospital setting. Arrangements were made for colonoscopy. Performing Provider:: Christiano mR MD Referring Provider:: Brayan Batista MD Sedation:: MAC sedation Procedure:: Consent was obtained and patient was taken to endoscopy procedure room. He was positioned in lateral decubitus position. Adequate intravenous sedation was achieved with anesthesia titration of propofol. Olympus endoscope was inserted via the anus. The rectosigmoid region in the proximal rectum there was noted to be severe stenosis. Lumen was only several millimeters. Colonoscope could not be advanced beyond this. 10 to 12 mm balloon dilator was inserted via the colonoscope. Guidewire was advanced through the stricture. Stricture was dilated sequentially 10 mm, 11 mm, then 12 mm. This balloon di
[2021-11-11 12:37] VITALS: BP 103/61; PULSE 63; RESP 18; TEMP 36.3; O2SAT 97
[2021-11-11 12:47] VITALS: BP 142/69; PULSE 60; RESP 18; O2SAT 99
[2021-11-11 12:57] VITALS: BP 142/84; PULSE 63; RESP 18; O2SAT 99
[2021-11-11 13:07] VITALS: BP 136/78; PULSE 65; RESP 18; O2SAT 100
== END 2021-11-11 13:07 | disposition home or self-care (01) ==
LOC: OUTP 10:01
PROVIDERS: PCP Family Medicine; Visit Provider Surgery
PROC: 0DJD8ZZ Inspection of Lower Intestinal Tract, Via Natural or Artificial Opening Endoscopic (ICD-10-PCS; principal; 2021-11-11 11:00)
DX: Z12.11 Encounter for screening for malignant neoplasm of colon (principal); K63.5 Polyp of colon; K56.699 Other intestinal obstruction unspecified as to partial versus complete obstruction; Z85.038 Personal history of other malignant neoplasm of large intestine; Z90.49 Acquired absence of other specified parts of digestive tract; I25.10 Atherosclerotic heart disease of native coronary artery without angina pectoris; E78.5 Hyperlipidemia, unspecified; I25.2 Old myocardial infarction; I50.9 Heart failure, unspecified; Z86.73 Personal history of transient ischemic attack (TIA), and cerebral infarction without residual deficits; Z86.79 Personal history of other diseases of the circulatory system; Z95.2 Presence of prosthetic heart valve
CPT/HCPCS: 45380; 88305; C1726

== ENCOUNTER → 2021-11-14 09:57 | Outpatient (POV) | payer MEDICARE, OTHER, SELFPAY ==
[2021-11-14 10:14] VITALS: BP 172/85; PULSE 70; RESP 18; TEMP 36.6; O2SAT 97; BMI 21.2
--- NOTE | 2021-11-14 12:43 | HMH.PAINSOAP ---
[facility] Pain Management SOAP Note Subjective:: Patient is a pleasant 81-year-old male who presents today after a right genicular nerve block on October 18, 2021. Patient is currently being treated for left sacroiliitis, bilateral osteoarthritis of the knees. After procedure, patient had significant relief about 80 to 90% and rates pain today as 5 out of 10. Denies any issues after the injection. Patient continues to have relief after this injection. Additionally, we have been treating this patient's left sacroiliitis for a long time now. We have done multiple left SI injection, left sacroiliac joint stabilization and left SI RFA with minimal relief. He continues to have physical therapy as well that is helping some of his pain. He went to see Dr. Powell in [place] for further evaluation of his left SI. He says that he is scheduled for a procedure with him sometime this month. He will be out for 6-8 weeks. He is currently taking gabapentin 300 mg 3 times a day by Dr. Santos. [facility] #[id number] with an active morphine equivalent of 0. Review of Systems: General: No recent weight changes, no fever, no sleep disturbances Respiratory: No cough, no shortness of air, no recurring pulmonary infections Cardiovascular/peripheral vascular: No chest pain, no palpitations, no edema, no shortness of breath Gastrointestinal: No new onset incontinence, normal bowel movements reported Genitourinary: No new onset incontinence Musculoskeletal: Bilateral knee pain, left SI pain Psychiatric: [Normal mood/affect] Neurological: [Denies weakness in extremities], [denies balance issues] Objective:: Physical Exam: General: Alert and oriented x3, no acute distress, pleasant and cooperative, [on room air] Lungs: Respirations even and unlabored, symmetrical chest expansion Eyes: PERRL Musculoskeletal: Limited range of motion bilateral knees secondary to pain. Left SI is positive for RO, Brandi's, [place]'s, [place]'s, compression, and distraction. Neurological: Speech clear, no gross sensory deficit Assessment:: Left sacroiliitis Bilateral osteoarthritis of the knees Plan:: Patient has significant relief after the right genicular nerve block. He continues to have relief after this injection. He will be following up with Dr. Powell in [place] for his Sacroiliitis. Patient will follow-up with us in 3 months to reevaluate chronic pain syndrome. Patient has been instructed to contact the clinic with any concerns before the next appointment. Dr. Jimenez has reviewed this note and agrees with this plan of care. This note was dictated using voice recognition software and make contain errors or omissions. [facility] History Medical History: Reports:: Arrhythmia, Carotid Stenosis, Congestive Heart Failure, Coronary Artery Disease, Cerebrovascular Accident, Gastroesophageal Reflux Disease(GERD), Heart Murmur, Hyperlipidemia, Hypertension, Myocardial Infarction, Transient Ischemic Attacks (TIA), Valvular Heart Disease Denies:: Cancer, Diabetes Mellitus Type 1, Diabetes Mellitus Type 2, Internal Pacemaker, Lung Disease, MRSA, Seizures *Have you ever received a pneumonia vaccine?: Yes *Have you received a flu vaccine this season?: Yes Other Medical History: Reports: Arthritis, Blood Transfusion Reaction, Chemotherapy, Liver Disease Other Surgeries: Yes: No Previous Surgery, CABG, Cancer Surgery, Cardiac Catheterization, Cardiac Surgery, Cholecystectomy, Colonoscopy, Colon Resection, Coronary Stent, EGD, Hernia Repair, Open Heart Surgery, Other Valve Replacement, Other (TAVR). No: Pacemaker Amputation: No Fractures: No - *Social History Smoking Status: Never smoker Alcohol Intake: never Substance Use Type: denies use *Occupational Status:: retired Housing: house Household Members: spouse *Travel in the last 8 weeks: None Family Hx:: Unable to obtain, No significant family history
== END ==
PROVIDERS: Visit Provider Student in an Organized Health Care Education/Training Program
DX: M46.1 Sacroiliitis, not elsewhere classified (principal); M17.0 Bilateral primary osteoarthritis of knee
CPT/HCPCS: 99212; G0463

== ENCOUNTER → 2021-11-22 09:31 | Outpatient (CLI) | payer MEDICARE, OTHER, SELFPAY ==
--- NOTE | 2021-11-22 09:31 | CT_ITS ---
FINAL REPORT TECHNIQUE: Axial imaging of the head was obtained without contrast. This study was performed with techniques to keep radiation doses as low as reasonably achievable, (ALARA). Individualized dose reduction techniques using automated exposure control or adjustment of mA and/or kV according to the patient''s size were employed. CLINICAL HISTORY: CVA WITH RIGHT FACIAL DROOP 24 HRS AGO COMPARISON: September 22, 2020 FINDINGS: The ventricles are normal in size. There is decreased attenuation in the deep white matter consistent with chronic microvascular ischemia. There is encephalomalacia in the left parietal deep white matter consistent with sequela of prior infarct. There is a smaller focus of encephalomalacia in the right parietal white matter. These are new from the prior exam but appear chronic There is no evidence of hemorrhage. No masses are identified. No extra-axial fluid is seen. The sinuses are normal. There is no acute osseous abnormality. IMPRESSION: Bilateral regions of encephalomalacia, new since the prior exam, but appear chronic. Recommend diffusion-weighted MRI to better assess. Reviewed, Interpreted and Dictated by Sonny Alva MD Transcribed by Vadim Juarez Authenticated by Sonny Alva MD on 11/22/2021 11:04:25 AM [facility]
== END ==
PROVIDERS: PCP Family Medicine; Visit Provider Specialist
DX: I63.9 Cerebral infarction, unspecified (principal)
CPT/HCPCS: 70450

== ENCOUNTER → 2021-11-29 10:37 | Outpatient (CLI) | payer MEDICARE, OTHER, SELFPAY ==
--- NOTE | 2021-11-29 10:39 | XR_ITS ---
FINAL REPORT CLINICAL HISTORY: rt knee pain COMPARISON: November 13, 2020 FINDINGS: 3 views of the right knee were obtained. There is no acute fracture or dislocation. There is moderate narrowing of the medial compartment. There are small osteophytes along the undersurface of the patella. There is mild osteophyte formation along the medial joint. There is no soft tissue abnormality. IMPRESSION: Moderate osteoarthritis. Reviewed, Interpreted and Dictated by Sonny Alva MD Transcribed by Vadim Juarez Authenticated by Sonny Alva MD on 11/29/2021 01:24:29 PM [facility]
== END ==
PROVIDERS: PCP Family Medicine; Visit Provider Orthopaedic Surgery
DX: M25.561 Pain in right knee (principal)
CPT/HCPCS: 73562

== ENCOUNTER → 2022-01-01 11:23 | Outpatient (CLI) | payer MEDICARE, OTHER, SELFPAY | PROVIDERS: PCP Family Medicine; Visit Provider Surgery | DX: Z01.818 Encounter for other preprocedural examination (principal); Z20.822 Contact with and (suspected) exposure to COVID-19 | CPT/HCPCS: C9803; U0003; U0005 ==

== ENCOUNTER 2022-01-03 10:26 | Day surgery (SDC) | payer MEDICARE, OTHER, SELFPAY ==
[2022-01-03] VITALS (7 sets, daily range): BP systolic 88–139; BP diastolic 52–78; PULSE 69–94; RESP 16–18; TEMP 36.4; O2SAT 95–98; BMI 19.8
--- NOTE | 2022-01-03 11:07 | HMH.GSHP ---
HPI HPI: Patient presents the office for follow-up sigmoidoscopy. He is an 81-year-old male with a complex past medical history.? He has a history of cardiac arrhythmia, colon cancer (resection 1997), carotid stenosis, congestive heart failure, coronary artery disease, cerebrovascular accident, GERD, hyperlipidemia, previous myocardial infarction, aortic valve disease.? He underwent aortic valve replacement at [facility] on 12/27/2020 and had issues postoperatively with several strokes with prolonged hospitalization and [facility] rehab stay.? During this time he required PEG tube placement. He presented to the emergency department 10/26/21 with a couple day history of diffuse abdominal pain and was found to have what appeared to be distal bowel obstruction.? ? Apparently the patient has undergone low anterior resection for colon cancer in November [address] Henrik Polanco at [facility].? His last colonoscopy was by Dr. Galindo in June 2016.? At that time anastomosis was intact and patent.? I performed colonoscopy on him on 11/11/2021. He was found to have severe stricture at the site of the anastomosis. This was extremely tight. He did undergo dilatation initially from 10 to 12 mm. The 15 to 18 mm dilator was then used to dilate to 16.5 mm. Colonoscope was able to be advanced to the right colon. He had a benign lesion in the rectosigmoid. Biopsies of the anastomosis were consistent with anastomosis and benign. He does state that he has had some improvement in his bowels. He has been on a low residue diet. [facility] History I have reviewed the patient's past medical history: Yes Medical History: Reports:: Arrhythmia, Cancer (COLON), Carotid Stenosis, Congestive Heart Failure, Coronary Artery Disease, Cerebrovascular Accident, Gastroesophageal Reflux Disease(GERD), Heart Murmur, Hyperlipidemia, Hypertension, Myocardial Infarction, Transient Ischemic Attacks (TIA), Valvular Heart Disease Denies:: Diabetes Mellitus Type 1, Diabetes Mellitus Type 2, Internal Pacemaker, Lung Disease, MRSA, Seizures *Have you ever received a pneumonia vaccine?: Yes *Have you received a flu vaccine this season?: Yes Other Medical History: Reports: Arthritis, Blood Transfusion Reaction, Chemotherapy, Liver Disease Other Surgeries: Yes: No Previous Surgery, CABG, Cancer Surgery, Cardiac Catheterization, Cardiac Surgery, Cholecystectomy, Colonoscopy, Colon Resection, Coronary Stent, EGD, Hernia Repair, Open Heart Surgery, Other Valve Replacement, Other (TAVR). No: Pacemaker Amputation: No Fractures: No - *Social History Last grade of school completed: High school graduate Smoking Status: Never smoker Alcohol Intake: never Substance Use Type: denies use *Occupational Status:: disabled Housing: house Household Members: spouse *Travel in the last 8 weeks: None Family Hx:: Cancer, Heart Attack Review of Systems - Review of Systems Review of systems:: pertinent systems reviewed and negative unless documented below Meds Home Medications Medication Instructions Recorded Confirmed Type Atorvastatin Calcium [Lipitor 40mg 40 mg PO DAILY 02/22/19 01/03/22 History Tab] lisinopril 10 mg tablet 10 mg PO DAILY tab 02/20/20 01/03/22 History amlodipine 5 mg tablet 5 mg PO DAILY tab 10/25/20 01/03/22 History metoprolol succinate 25 mg 25 mg PO DAILY tab 05/14/21 01/03/22 History tablet,extended release 24 hr Omeprazole Magnesium 40 mg PO DAILY #0 05/25/21 01/03/22 Rx gabapentin 300 mg capsule 300 mg PO BID #120 cap MDD 1200 mg 11/21/21 01/03/22 Rx Allergies Allergy/AdvReac Type Severity Reaction Status Date / Time No Known Allergies Allergy Verified 01/03/22 10:38 Exam Vital signs and Labs for Last 24 Hours: Temp Pulse Resp BP Pulse Ox 97.6 F 87 18 139/78 98 01/03/22 10:44 01/03/22 10:44 01/03/22 10:44 01/03/22 10:44 01/03/22 10:44 I & O for Last 24 hours: Intake & Output 12/31/21 01/01/22
--- NOTE | 2022-01-03 11:45 | HMH.ANESCL ---
[facility] Anesthesia Checklist - Patient Identification Patient Identification: Arm Band - Structural Data Admitted From: Home Planned Operative Procedure/s: Felx. sig Consent for Planned Operative Procedure(s) Verified: Yes - NPO Status Verified Time NPO: 00:00 - Additional verifications Anesthesia Reactions: No Hx Blood Transfusions: No Blood Transfusion Reaction: Yes - Airway Assessment C-Spine Mobility Assessed: Yes TMJ Mobility Assessed: Yes Dentition: Poor Dentition - Neurological Assessment Level of Consciousness: Awake Hx Seizures: No Numbness or tingling in extremities: No - Anesthesia Plan Anesthesia Risk discussed: Yes Anesthesia Plan: Verified ASA Class: III Anesthesia Type: MAC [facility] History I have reviewed the patient's past medical history: Yes Medical History: Reports:: Arrhythmia, Cancer (COLON), Carotid Stenosis, Congestive Heart Failure, Coronary Artery Disease, Cerebrovascular Accident, Gastroesophageal Reflux Disease(GERD), Heart Murmur, Hyperlipidemia, Hypertension, Myocardial Infarction, Transient Ischemic Attacks (TIA), Valvular Heart Disease Denies:: Diabetes Mellitus Type 1, Diabetes Mellitus Type 2, Internal Pacemaker, Lung Disease, MRSA, Seizures *Have you ever received a pneumonia vaccine?: Yes *Have you received a flu vaccine this season?: Yes Other Medical History: Reports: Arthritis, Blood Transfusion Reaction, Chemotherapy, Liver Disease Anesthesia experience/problems:: None Other Surgeries: Yes: No Previous Surgery, CABG, Cancer Surgery, Cardiac Catheterization, Cardiac Surgery, Cholecystectomy, Colonoscopy, Colon Resection, Coronary Stent, EGD, Hernia Repair, Open Heart Surgery, Other Valve Replacement, Other (TAVR). No: Pacemaker Amputation: No Fractures: No - *Social History Last grade of school completed: High school graduate Smoking Status: Never smoker Alcohol Intake: never Substance Use Type: denies use *Occupational Status:: disabled Housing: house Household Members: spouse *Travel in the last 8 weeks: None Family Hx:: Cancer, Heart Attack
--- NOTE | 2022-01-03 11:47 | P.PCN_ITS ---
- Procedure: Date: 01/03/22 Patient Date of :: 1940 Procedure Performed:: Flexible sigmoidoscopy with balloon dilatation proximal rectal stricture sequentially to 18 mm then 20 mm. Indications:: Patient presents for follow-up sigmoidoscopy. He is an 81-year-old male with a complex past medical history.? He has a history of cardiac arrhythmia, colon cancer (resection 1997), carotid stenosis, congestive heart failure, coronary artery disease, cerebrovascular accident, GERD, hyperlipidemia, previous myocardial infarction, aortic valve disease.? He underwent aortic valve replacement at [facility] on 12/27/2020 and had issues postoperatively with several strokes with prolonged hospitalization and [facility] rehab stay.? During this time he required PEG tube placement. He presented to the emergency department 10/26/21 with a couple day history of diffuse abdominal pain and was found to have what appeared to be distal bowel obstruction.? ? Apparently the patient has undergone low anterior resection for colon cancer in November [address] Henrik Polanco at [facility].? His last colonoscopy was by Dr. Galindo in June 2016.? At that time anastomosis was intact and patent.? I performed colonoscopy on him on 11/11/2021. He was found to have severe stricture at the site of the anastomosis. This was extremely tight. He did undergo dilatation initially from 10 to 12 mm. The 15 to 18 mm dilator was then used to dilate to 16.5 mm. Colonoscope was able to be advanced to the right colon. He had a benign lesion in the rectosigmoid. Biopsies of the anastomosis were consistent with anastomosis and benign. He does state that he has had some improvement in his bowels. He has been on a low residue diet. Performing Provider:: Christiano Rm MD Referring Provider:: Brayan Batista MD Sedation:: MAC sedation Procedure:: Patient was taken to the endoscopy procedure room. He was positioned in lateral decubitus position. Adequate intravenous sedation was achieved with anesthesia titration of propofol. Limits endoscope was inserted via the anus. In the proximal rectum stricture was encountered. This was very tight. Not quite as tight as previously noted on colonoscopy 2 months ago. Endoscope was unable to be advanced beyond this. The balloon dilator over the guidewire, 15 to 18 mm, was inserted via the endoscope. The stricture was dilated sequentially from 15 mm to 16.5 mm to 18 mm. The endoscope was then able to be advanced proximal to this. The endoscope was withdrawn once again into the rectum and dilatation was performed with a 18 to 20 mm dilator sequentially from 18 mm to 19 mm and then 20 mm. There was minor mucosal tear as would be expected with this dilatation but no notable injury. The endoscope was able to be advanced proximal to the stricture. Endoscope was then withdrawn. Findings:: Tight proximal rectal stricture Recommendations:: Maintain low residue diet. I may plan for repeat sigmoidoscopy in about 6 or 8 weeks to reassess and possible repeat dilatation. This may be able to be done without bowel preparation but just using enemas. Complications:: None immediately apparent Estimated blood obtained (mL): 3
== END 2022-01-03 12:35 | disposition home or self-care (01) ==
LOC: OUTP 10:27
PROVIDERS: PCP Family Medicine; Visit Provider Surgery
PROC: 0DJD8ZZ Inspection of Lower Intestinal Tract, Via Natural or Artificial Opening Endoscopic (ICD-10-PCS; CPT 45330; principal; 2022-01-03 10:30)
DX: K62.4 Stenosis of anus and rectum (principal); Z85.038 Personal history of other malignant neoplasm of large intestine; I65.23 Occlusion and stenosis of bilateral carotid arteries; I50.9 Heart failure, unspecified; I11.0 Hypertensive heart disease with heart failure; K21.9 Gastro-esophageal reflux disease without esophagitis; Z95.1 Presence of aortocoronary bypass graft; Z95.5 Presence of coronary angioplasty implant and graft; Z90.49 Acquired absence of other specified parts of digestive tract
CPT/HCPCS: 45340; C1726

== ENCOUNTER 2022-02-11 10:50 | Emergency (ER) | payer MEDICARE, OTHER, SELFPAY ==
--- NOTE | 2022-02-11 10:57 | ECG_ITS ---
APPROVED REPORT Exam: Resting ECG HR:68 bpm ECG Measurements Heart Rate 68 AXES ID 164 P 52 QRSd 169 QRS -40 QT 428 T 91 QTc 445 Conclusion SINUS RHYTHM LEFT AXIS DEVIATION [QRS AXIS < -30] LEFT BUNDLE BRANCH BLOCK [120+ ms QRS DURATION, 80+ ms Q/S IN V1/V2, 85+ ms R IN I/aVL/V5/V6] ABNORMAL ECG UNCONFIRMED REPORT Electronically signed by : Jarvis Paz MD 02/12/2022 21:03:15
[2022-02-11 10:58] VITALS: BP 146/76; PULSE 72; RESP 20; TEMP 36.8; O2SAT 99; BMI 20.5; BMI 26.6
--- NOTE | 2022-02-11 11:00 | HMH.EDGENADL ---
ED Disposition Clinical Impression: Shortness of breath Disposition: Home, Self-Care Condition on Discharge: Good Instructions: DI for Shortness of Breath Additional Instructions: Follow-up with Dr. Batista in his office within 3-4 days, call for appointment. 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 Additional instructions for SHORTNESS OF BREATH: See your physician as soon as possible for further evaluation. Return immediately if worsening shortness of breath or if vomiting, chest pain, fever, coughing of blood, or passing out. Referrals: Beltran Batista MD [Primary Care Provider] - - Critical Care Critical Care Time: No Attestation: On , the high probability of a clinically significant, sudden or life threatening deterioration of the following system(s) required my full and direct attention, intervention and personal management. The time I documented below is in addition to time spent performing reported procedures but includes the following listed in this critical care notation. Medical Decision Making - [place] Inquiry Pt receiving controlled substance: No Vital Signs: 02/11/22 10:58 Temperature 98.2 F Temperature Source Oral Pulse Rate [Brachial] 72 Respiratory Rate 20 Blood Pressure [Right Arm] 146/76 H Blood Pressure Mean [Right Arm] 99 Blood Pressure Source [Right Arm] Automatic Cuff Blood Pressure Position [Right Arm] Sitting 02 Sat by Pulse Oximetry 99 Oxygen Delivery Method Room Air - Lab Data Lab Results 02/11/22 10:58: WBC 8.2, RBC 4.60, Hgb 14.5, Hct 42.7, MCV 92.8, MCH 31.5 H, MCHC 33.9, RDW 12.6, Plt Count 178, MPV 10.7 H, Neut % (Auto) 72.6, Lymph % (Auto) 18.7, [place] % (Auto) 6.7, Eos % (Auto) 1.6, Baso % (Auto) 0.5, Neut # (Auto) 6.0, Lymph # (Auto) 1.5, [place] # (Auto) 0.6, Eos # (Auto) 0.1, Baso # (Auto) 0.0 02/11/22 10:58: Sodium 139, Potassium 4.1, Chloride 103, Carbon Dioxide 29, Anion Gap 11.1, BUN 30 H, Creatinine 0.70, Estimated Creat Clear 64, Estimated GFR 108, Est GFR ( Amer) 131, Glucose 79, Calcium 9.2, Total Bilirubin 1.4 H, AST 32, ALT 20, Alkaline Phosphatase 90, Troponin I < 0.01, Total Protein 6.8, Albumin 4.0, Globulin 2.8, Albumin/Globulin Ratio 1.4 02/11/22 10:58: D-Dimer 1.09 H 02/11/22 10:58: NT-Pro-B Natriuret Pep 327 Result diagrams: 02/11/22 10:58 02/11/22 10:58 Orders (Tests/Meds): ED MEDICATIONS Discontinued Medications Generic Name Dose Route Start Last Admin Trade Name Freq PRN Reason Stop Dose Admin Iopamidol 70 ml 02/11/22 12:13 02/11/22 12:14 Iopamidol-370 (76%);100ml Bottle IV 02/11/22 12:14 70 ml ONCE ONE Administration Sodium Chloride 50 ml 02/11/22 12:13 02/11/22 12:14 0.9 % Sodium Chloride 50 Ml Vial IV 02/11/22 12:14 50 ml ONCE ONE Administration Sodium Chloride 10 ml 02/11/22 12:13 02/11/22 12:14 Sodium Chloride 0.9% 10ml Syr (Rad Only) IV 02/11/22 12:14 10 ml ONCE ONE Administration ORDERS Category Date Time Status Rapid PCR Covid and Flu A/B Stat Lab 02/11/22 11:08 Ordered Troponin I Q3H Lab 02/11/22 14:15 Ordered Troponin I Q3H Lab 02/11/22 17:15 Ordered - CT Data CT Scan: Chest (CTA) Time Received: 13:[address] Reviewed: Yes: I have viewed the radiologist's interpretation Findings Narrative: Ordering Physician: Thomas Valladares MD Date of Service: 02/11/22 Procedure(s): CT angio chest PE protocol Accession Number(s): [id number] cc: Christiano Gurrola MD; Thomas Valladares MD; Beltran Batista MD~ FINAL REPORT TECHNIQUE: Then section axial CT images of the chest were obtained with contrast. Three-D reformatted images were also obtained.This study was performed with techniques to keep radiation doses as low as reasonably achievable (ALARA). Individualized dose reduction techniques using automated exposure control or adjustment of mA and/or kV according to the patient''s size were employed.
--- NOTE | 2022-02-11 11:04 | PC.NURSE ---
ED MD AT BEDSIDE TO EVALUATE PT
--- NOTE | 2022-02-11 11:06 | XR_ITS ---
FINAL REPORT CLINICAL HISTORY: SOA COMPARISON: 11/05/2021 FINDINGS: SINGLE-VIEW CHEST The heart size is normal. The patient is status post median sternotomy. The lungs are clear. There is no pneumothorax. IMPRESSION: No acute cardiopulmonary process. Reviewed, Interpreted and Dictated by Christiano Gurrola III, MD Transcribed by Raisa Plummer Authenticated and [facility]
[2022-02-11 11:19] LABS: Basophils % 0.5 % (0.1-2.0); Eosinophils # 0.1 K/mm3 (0.0-0.4); Eosinophils % 1.6 % (0.1-12.0); Hematocrit 42.7 % (42.0-52.0); Hemoglobin 14.5 g/dL (14.1-18.0); Lymphocytes # 1.5 K/mm3 (0.7-4.5); Lymphocytes % 18.7 % (10-50); Mean Corpuscular HGB Conc 33.9 g/dL (31.8-35.4); Mean Corpuscular Hemoglobin 31.5 pg (27.0-31.2); Mean Corpuscular Volume 92.8 fl (80-94); Mean Platelet Volume 10.7 fl (7.4-10.4); Monocytes # 0.6 K/mm3 (0.1-1.0); Monocytes % 6.7 % (1.7-9.3); Neutrophils % 72.6 % (37.0-80.0); Platelet Count 178 K/mm3 (142-424); Red Cell Distribution Width 12.6 % (11.5-17.5); White Blood Count 8.2 K/mm3 (4.8-10.8)
[2022-02-11 11:21] LABS: Alanine Aminotransferase 20 U/L (12-78); Albumin/Globulin Ratio 1.4 (1.1-1.8); Alkaline Phosphatase 90 U/L (38-126); Anion Gap 11.1 mEq/L (5-15); Aspartate Amino Transferase 32 U/L (17-59); Bilirubin,Total 1.4 mg/dl (0.2-1.3); Blood Urea Nitrogen 30 mg/dl (9-20); Calcium 9.2 mg/dl (8.4-10.2); Carbon Dioxide 29 mmol/L (22.0-30.0); Chloride 103 mmol/L (98-107); Creatinine Clearance Estimated 64 mL/min (50-200); Estimated Glomerular Filt Rate 108 ml/min (>60); GFR (African American) 131 ML/MIN (>60); Globulin 2.8 g/dL (1.3-3.2); Glucose 79 mg/dl (74-100); Potassium 4.1 mmoL/L (3.5-5.1); Sodium 139 mmol/L (136-145); Total Protein,Serum 6.8 g/dl (6.3-8.2)
[2022-02-11 11:27] LABS: D-Dimer 1.09 ug/mL (0.0-0.5)
[2022-02-11 11:31] LABS: NT Pro Brain Natriuretic Pep. 327 pg/mL (0-450)
[2022-02-11 11:34] LABS: Troponin I < 0.01 ng/ml (0.00-0.034)
--- NOTE | 2022-02-11 11:38 | CT_ITS ---
FINAL REPORT TECHNIQUE: Then section axial CT images of the chest were obtained with contrast. Three-D reformatted images were also obtained.This study was performed with techniques to keep radiation doses as low as reasonably achievable (ALARA). Individualized dose reduction techniques using automated exposure control or adjustment of mA and/or kV according to the patient''s size were employed. CLINICAL HISTORY: soa, elev d-dimer, hx colon cancer FINDINGS: There is evidence of median sternotomy. There is no evidence of pulmonary embolism. There is a small aneurysm along the lateral aspect of the aortic arch measuring 9 mm. There is no evidence of mediastinal or hilar mass or adenopathy. There is no evidence of pulmonary mass or suspicious nodule. There is mild atelectasis. Limited images of the upper abdomen demonstrate postoperative changes from cholecystectomy and gastrostomy tube. IMPRESSION: 1. No evidence of pulmonary embolism. 2. 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 Reviewed, Interpreted and Dictated by Christiano Gurrola III, MD Transcribed by Vadim Juarez Authenticated and [facility]
--- NOTE | 2022-02-11 11:57 | PC.NURSE ---
PT TO CT PER WC AT THIS TIME
--- NOTE | 2022-02-11 13:24 | PC.NURSE ---
ALIREZA DAILY at speaking with Dr. Batista at this time
[2022-02-11 14:21] LABS: Coronavirus 19, PCR Not Detected (NotDetected); Influenza A, PCR Not Detected (NotDetected); Influenza B, PCR Not Detected (NotDetected)
[2022-02-11 14:30] VITALS: BP 122/67; PULSE 66; RESP 18; TEMP 36.6; O2SAT 96
== END 2022-02-11 14:30 | disposition home or self-care (01) ==
PROVIDERS: Emergency Provider Emergency Medicine; PCP Family Medicine
DX: R06.02 Shortness of breath (principal); Z79.899 Other long term (current) drug therapy; I11.0 Hypertensive heart disease with heart failure; E78.5 Hyperlipidemia, unspecified; I50.9 Heart failure, unspecified; K21.9 Gastro-esophageal reflux disease without esophagitis; I25.10 Atherosclerotic heart disease of native coronary artery without angina pectoris; I49.9 Cardiac arrhythmia, unspecified; I65.29 Occlusion and stenosis of unspecified carotid artery; I25.2 Old myocardial infarction; M19.90 Unspecified osteoarthritis, unspecified site; Z86.73 Personal history of transient ischemic attack (TIA), and cerebral infarction without residual deficits
CPT/HCPCS: 71045; 71275; 80053; 83880; 84484; 85025; 85378; 93005; 99284; C9803; Q9967; U0003; U0005

== ENCOUNTER → 2022-03-12 11:10 | Outpatient (CLI) | payer MEDICARE, OTHER, SELFPAY | PROVIDERS: PCP Family Medicine; Visit Provider Surgery | DX: Z01.812 Encounter for preprocedural laboratory examination (principal); Z20.822 Contact with and (suspected) exposure to COVID-19; Z12.11 Encounter for screening for malignant neoplasm of colon | CPT/HCPCS: C9803; U0003; U0005 ==

== ENCOUNTER 2022-03-14 09:09 | Day surgery (SDC) | payer MEDICARE, OTHER, SELFPAY ==
[2022-03-11 11:45] VITALS: BMI 20.3
--- NOTE | 2022-03-14 09:03 | P.PN_ITS ---
[facility] Anesthesia Checklist - Patient Identification Patient Identification: Arm Band, Verbal (Name & ) - Structural Data Admitted From: Home Planned Operative Procedure/s: Flex Sigmoidoscopy Consent for Planned Operative Procedure(s) Verified: Yes Verified Documents: Surgical Consent - NPO Status Verified Time NPO: 00:00 - Additional verifications Anesthesia Reactions: No Hx Blood Transfusions: No Blood Transfusion Reaction: Yes - Airway Assessment C-Spine Mobility Assessed: Yes TMJ Mobility Assessed: Yes - Neurological Assessment Level of Consciousness: Awake, Alert, Appropriate - Anesthesia Plan Anesthesia Risk discussed: Yes ASA Class: III Anesthesia Type: MAC [facility] History I have reviewed the patient's past medical history: Yes Medical History: Reports:: Arrhythmia, Cancer (colon), Carotid Stenosis, Congestive Heart Failure, Coronary Artery Disease, Cerebrovascular Accident, Gastroesophageal Reflux Disease(GERD), Heart Murmur, Hyperlipidemia, Hypertension, Myocardial Infarction, Transient Ischemic Attacks (TIA), Valvular Heart Disease Denies:: Diabetes Mellitus Type 1, Diabetes Mellitus Type 2, Internal Pacemaker, Lung Disease, MRSA, Seizures *Have you ever received a pneumonia vaccine?: Yes *Have you received a flu vaccine this season?: Yes Other Medical History: Reports: Arthritis, Blood Transfusion Reaction, Chemotherapy, Liver Disease Anesthesia experience/problems:: none Other Surgeries: Yes: No Previous Surgery, CABG, Cancer Surgery, Cardiac Catheterization, Cardiac Surgery, Cholecystectomy, Colonoscopy, Colon Resection, Coronary Stent, EGD, Hernia Repair, Open Heart Surgery, Other Valve Replacement, Other (TAVR). No: Pacemaker Amputation: No Fractures: No - *Social History Last grade of school completed: High school graduate Smoking Status: Never smoker Alcohol Intake: never Substance Use Type: denies use *Occupational Status:: retired Housing: house Household Members: spouse, family *Travel in the last 8 weeks: None Family Hx:: Cancer, Heart Attack
[2022-03-14 09:21] VITALS: BP 139/78; PULSE 67; RESP 16; TEMP 36.5; O2SAT 97
--- NOTE | 2022-03-14 09:29 | HMH.GSHP ---
HPI HPI: Patient presents for follow-up sigmoidoscopy. He is an 81-year-old male with a complex past medical history.? He has a history of cardiac arrhythmia, colon cancer (resection 1997), carotid stenosis, congestive heart failure, coronary artery disease, cerebrovascular accident, GERD, hyperlipidemia, previous myocardial infarction, aortic valve disease.? He underwent aortic valve replacement at [facility] on 12/27/2020 and had issues postoperatively with several strokes with prolonged hospitalization and [facility] rehab stay.? During this time he required PEG tube placement.? Patient had previously undergone low anterior resection for colon cancer in November 1997 at [facility]. He did have a colonoscopy performed by Dr. Galindo in June 2016 at which time anastomosis was intact and patent. Patient had presented in October of this year with diffuse abdominal pain and had what appeared to be distal bowel obstruction. He underwent colonoscopy on 11/11/2021 at which time he was found to have a severe stricture at the site of the anastomosis. This was sequentially dilated initially to 10 mm, then 12, then ultimately to 16.5 mm. Biopsies were performed at the anastomosis and these were benign. He underwent follow-up sigmoidoscopy on 01/03/2022 and dilatation was performed to 20 mm. At this time he had improvement in his bowel function with minimal straining and marked improvement and fecal incontinence. Plan was made for follow-up sigmoidoscopy with possible repeat dilatation. Patient does state that he is having some issues with a couple of days of obstipation and then multiple bowel movements. [facility] History I have reviewed the patient's past medical history: Yes Medical History: Reports:: Arrhythmia, Cancer, Carotid Stenosis, Congestive Heart Failure, Coronary Artery Disease, Cerebrovascular Accident, Gastroesophageal Reflux Disease(GERD), Heart Murmur, Hyperlipidemia, Hypertension, Myocardial Infarction, Transient Ischemic Attacks (TIA), Valvular Heart Disease Denies:: Diabetes Mellitus Type 1, Diabetes Mellitus Type 2, Internal Pacemaker, Lung Disease, MRSA, Seizures *Have you ever received a pneumonia vaccine?: Yes *Have you received a flu vaccine this season?: Yes Other Medical History: Reports: Arthritis, Blood Transfusion Reaction, Chemotherapy, Liver Disease Anesthesia experience/problems:: none Other Surgeries: Yes: No Previous Surgery, CABG, Cancer Surgery, Cardiac Catheterization, Cardiac Surgery, Cholecystectomy, Colonoscopy, Colon Resection, Coronary Stent, EGD, Hernia Repair, Open Heart Surgery, Other Valve Replacement, Other (TAVR). No: Pacemaker Amputation: No Fractures: No - *Social History Last grade of school completed: High school graduate Smoking Status: Never smoker Alcohol Intake: never Substance Use Type: denies use *Occupational Status:: disabled Housing: house Household Members: spouse *Travel in the last 8 weeks: None Family Hx:: Cancer, Heart Attack Review of Systems - Review of Systems Review of systems:: pertinent systems reviewed and negative unless documented below Meds Home Medications Medication Instructions Recorded Confirmed Type Atorvastatin Calcium [Lipitor 40mg 40 mg PO DAILY 02/22/19 03/14/22 History Tab] lisinopril 10 mg tablet 10 mg PO DAILY tab 02/20/20 03/14/22 History amlodipine 5 mg tablet 5 mg PO DAILY tab 10/25/20 03/14/22 History metoprolol succinate 25 mg 25 mg PO DAILY tab 05/14/21 03/14/22 History tablet,extended release 24 hr Omeprazole Magnesium 40 mg PO DAILY #0 05/25/21 03/14/22 Rx gabapentin 300 mg capsule 300 mg PO BID #120 cap MDD 1200 mg 11/21/21 03/14/22 Rx Allergies Allergy/AdvReac Type Severity Reaction Status Date / Time No Known Allergies Allergy Verified 03/14/22 09:20 Exam Vital signs and Labs for Last 24 Hours: Temp Pulse Resp BP Pulse Ox 97.7 F 67 16 139/78 97 03/14/22 09:21 03/14/22 09:21 03/14/22 09:
[2022-03-14 09:42] VITALS: O2SAT 97
[2022-03-14 10:10] VITALS: BP 137/73; PULSE 70; RESP 18; TEMP 36.4; O2SAT 100
--- NOTE | 2022-03-14 10:10 | P.PCN_ITS ---
- Procedure: Date: 03/14/22 Patient Date of :: 1940 Procedure Performed:: Flexible sigmoidoscopy with dilatation of rectal stricture Indications:: Patient presents for follow-up sigmoidoscopy. He is an 81-year-old male with a complex past medical history.? He has a history of cardiac arrhythmia, colon cancer (resection 1997), carotid stenosis, congestive heart failure, coronary artery disease, cerebrovascular accident, GERD, hyperlipidemia, previous m yocardial infarction, aortic valve disease.? He underwent aortic valve replacement at [facility] on 12/27/2020 and had issues postoperatively with several strokes with prolonged hospitalization and [facility] rehab stay.? During this time he required PEG tube placement.? Patient had previously undergone low anterior resection for colon cancer in November 1997 at [facility]. He did have a colonoscopy performed by Dr. Galindo in June 2016 at which time anastomosis was intact and patent. Patient had presented in October of this year with diffuse abdominal pain and had what appeared to be distal bowel obstruction. He underwent colonoscopy on 11/11/2021 at which time he was found to have a severe stricture at the site of the anastomosis. This was sequentially dilated initially to 10 mm, then 12, then ultimately to 16.5 mm. Biopsies were performed at the anastomosis and these were benign. He underwent follow-up sigmoidoscopy on 01/03/2022 and dilatation was performed to 20 mm. At this time he had improvement in his bowel function with minimal straining and marked improvement and fecal incontinence. Plan was made for follow-up sigmoidoscopy with possible repeat dilatation. Patient does state that he is having some issues with a couple of days of obstipation and then multiple bowel movements. Performing Provider:: Christiano Rm MD Referring Provider:: Brayan Batista MD Sedation:: MAC sedation Procedure:: Patient was taken to endoscopy procedure room. He was positioned in lateral decubitus position. Adequate intravenous sedation was achieved with anesthesia titration of propofol. Digital examination was performed which was unremarkable. Olympus endoscope was inserted via the anus. Within the proximal rectum at approximately 12 cm from the anal verge there was a stricture. This was not as tight as before but was appreciable. Endoscope was unable to be easily advanced beyond this. Using the wire-guided pneumatic dilator it was sequentially dilated to 18, then 19, then 20 mm luminal diameter. As expected with this dilatation there was some minor mucosal disruption. Endoscope was able to be advanced beyond this. There was some minor oozing from the dilatation site and balloon was reinserted and reinflated for a couple of mi nutes for tamponade effect for hemostasis. At the completion of the procedure there appeared to be good hemostasis. Balloon was deflated and withdrawn. Colonoscope was withdrawn. Findings:: Benign-appearing stricture at 12 cm from the anal verge Stricture dilated sequentially 18 to 20 mm luminal diameter with the pneumatic dilator Recommendations:: Likely continued low residue diet. May consider repeat sigmoidoscopy in a couple of months. If this becomes a recurrent problem could require colorectal surgical referral for further management. Complications:: None immediately apparent Estimated blood obtained (mL): 4
[2022-03-14 10:20] VITALS: BP 148/71; PULSE 73; RESP 18; TEMP 36.4; O2SAT 97
[2022-03-14 10:40] VITALS: BP 136/67; PULSE 71; RESP 18; TEMP 36.4; O2SAT 97
[2022-03-14 10:56] VITALS: BP 136/70; PULSE 68; RESP 18; TEMP 36.4; O2SAT 98
== END 2022-03-14 10:56 | disposition home or self-care (01) ==
LOC: OUTP 09:10
PROVIDERS: PCP Family Medicine; Visit Provider Surgery
PROC: 0DJD8ZZ Inspection of Lower Intestinal Tract, Via Natural or Artificial Opening Endoscopic (ICD-10-PCS; CPT 45330; principal; 2022-03-14 09:30)
DX: Z85.038 Personal history of other malignant neoplasm of large intestine (principal)
CPT/HCPCS: G0104; C1726

== ENCOUNTER 2022-04-10 09:30 | Outpatient (RCR) | payer MEDICARE, OTHER, SELFPAY ==
--- NOTE | 2021-12-18 08:54 | HMH.PTOPEV ---
PT Outpatient Evaluation Rehab PT Outpatient Evaluation Start: 12/18/21 08:04 Freq: Status: Active Protocol: Document 12/18/21 08:04 SHAD (Rec: 12/18/21 08:54 SHAD [id number]) Electronically Signed By Dilshad Jason PT 12/18/21 08:04 Outpatient Therapy Subjective History Subjective History THis is the initial Physical Therapy evaluation for Francesco Adorno. Pt reports to PT for c /o BLE neuropathy, LBP and bone on bone in R knee. Pt reports long history of LBP but reports neuropathy has significantly increased over the last 6 months. Pt states the neuropathy has decreased his balance and he has trouble with uneven ground. Pt reports that standing and walking increase pain but flexion and sitting decrease pain. Chief Complaint Pain,Spasms,Stiff,Paresthesia, Weakness Symptom Type Ache,Sharp,Numbness,Tingling Symptoms Relieved By Rest/Positioning Symptoms Aggravated By Standing,Walking Prior Functional Limitations None Current Functional Limitations Standing,Recreation Activity, Walking,Balance Symptom Description Intermittent Lumbopelvic Eval Posture Lumbar Spine Posture Standing Position Decreased Lordosis,Flexed Assistive device Assistive Devices None / NA Palapation tenderness left Lumbar/Sacral Palpation Findings Tenderness Lumbar/Sacral Palpation Overall Comment TTP L SIJ Range of Motion Lumbar Spine Active Flexion Range of WFL Motion (degrees) Lumbar Spine Active Extension Range of 10 Motion (degrees) Left Lumbar Spine Lateral Flexion Active 20 Range of Motion (degrees) Right Lumbar Spine Lateral Flexion 25 Active Range of Motion (degrees) Special Tests Forward Bending Test- Standing Positive Left,Positive Right Forward Bending Test- Sitting Positive Left,Positive Right Sacroiliac Joint Compression Test Positive Left,Positive Right Sacroiliac Joint Distraction Test Positive Left,Positive Right Lumbar [place] Distraction Test/Manual Positive Traction Outpatient Therapy Assessment Impairments Problems/Impairmments Palpation Tenderness,Impaired Strength,Impaired Walking, Impaired Standing,Impaired Stepping on Uneven Surface, Impaired Recr
== END 2022-04-10 09:35 | disposition home or self-care (01) ==
LOC: PT 09:30
PROVIDERS: PCP Family Medicine; Visit Provider Specialist
DX: M48.062 Spinal stenosis, lumbar region with neurogenic claudication (principal); M54.10 Radiculopathy, site unspecified
CPT/HCPCS: 97010; 97012; 97014; 97110; 97112; 97163; 97164; 97530; G0283

== ENCOUNTER 2022-07-04 13:05 | Day surgery (SDC) | payer MEDICARE, OTHER, SELFPAY ==
[2022-07-03 07:59] VITALS: BMI 20.9
--- NOTE | 2022-07-03 08:02 | SUR.PREOP ---
Spoke with pt on phone for preoperative interview/medical surgical history but difficult to understand pt's answers d/t mumbling. Completed as good as possible at this time.
[2022-07-04 13:20] VITALS: BP 185/105; PULSE 57; RESP 18; TEMP 36.6; O2SAT 93
--- NOTE | 2022-07-04 13:25 | EXP.ANES.CKL ---
[facility] Disclaimer: The information contained in this section may have been updated after the patient was seen, as this information can be updated by other users. Medical History CVA (cerebrovascular accident) Surgical History History of colonoscopy Family History Other Cancer Heart attack Social History Smoking Status: Never smoker second hand exposure: No alcohol intake: former substance use type: denies use current occupational status: disabled Travel in the last 8 weeks: None household members: spouse housing: house lives independently: No marital status: 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 occupational exposures/hazards: No caffeine: Yes [facility] Anesthesia Checklist Patient Identification Patient Identification: Arm Band and Verbal (Name & ) Structural Data Admitted From: Home Planned Operative Procedure/s: Sigmoidoscopy Verified Documents: Surgical Consent NPO Status Verified Time NPO: 00:00 Additional verifications Anesthesia Reactions: No Hx Blood Transfusions: No Blood Transfusion Reaction: Yes Airway Assessment C-Spine Mobility Assessed: Yes TMJ Mobility Assessed: Yes Neurological Assessment Level of Consciousness: Awake, Alert and Appropriate Anesthesia Plan ASA Class: III Anesthesia Type: MAC
--- NOTE | 2022-07-04 13:27 | EXP.GEN.HP ---
HPI HPI HPI: Patient presents for follow-up sigmoidoscopy with dilatation. He is an 82-year-old male who is very well-known to me.? He has a history of cardiac arrhythmia, colon cancer (status post low anterior resection in 1997), carotid stenosis, congestive heart failure, coronary artery disease, cerebrovascular accident, GERD, hyperlipidemia, previous myocardial infarction, aortic valve disease.? In December 2020 he had undergone aortic valve replacement at [facility] and had prolonged hospitalization ultimately with [facility] rehab stay as he had several strokes postoperatively.? He did have a PEG tube placed at that time.? Patient had presented in October of this year with distal bowel obstruction.? Colonoscopy performed on 11/11/2021 revealed severe colorectal stricture at the anastomosis which was dilated ultimately to 16.5 mm.? Sigmoidoscopy on 01/03/2022 was performed with dilatation to 20 mm.? Sigmoidoscopy on 03/14/2022 was performed with dilatation once again to 20 mm for recurrent stricture.? Following that patient did have ongoing symptoms consistent with obstipation and some fecal incontinence.? I had him undergo colorectal surgical consultation with Dr. Rudolph Jacinto.? It was felt that patient may require surgery and would need a colostomy.? Patient wishes to refrain from this.? He was sent back for consideration of ongoing attempts at dilatation. He does state that his colorectal surgeon has started him on MiraLAX and his symptoms are improved. [facility] Disclaimer: The information contained in this section may have been updated after the patient was seen, as this information can be updated by other users. Medical History CVA (cerebrovascular accident) Surgical History History of colonoscopy Family History Other Cancer Heart attack Social History Smoking Status: Never smoker second hand exposure: No alcohol intake: former substance use type: denies use current occupational status: disabled Travel in the last 8 weeks: None household members: spouse housing: house lives independently: No marital status: 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 occupational exposures/hazards: No caffeine: Yes Meds Home Medications and Allergies Home Medications Medication Instructions Recorded Confirmed Type atorvastatin 40 mg tablet 40 mg PO DAILY Cholesterol 02/22/19 07/03/22 History lisinopril 10 mg tablet 10 mg PO DAILY Hypertension 02/20/20 07/03/22 History amlodipine 5 mg tablet 5 mg PO DAILY Hypertension 10/25/20 07/03/22 History metoprolol succinate 25 mg 25 mg PO DAILY Hypertension 05/14/21 07/03/22 History tablet,extended release 24 hr omeprazole magnesium 20 mg 40 mg PO DAILY GERD ##0 05/25/21 07/03/22 Rx tablet,delayed release diazepam 2 mg tablet 1 mg PO TID PRN GERD 03/25/22 07/03/22 History gabapentin 300 mg capsule See Rx Instructions PO BID 03/25/22 07/03/22 Rx NEUROPATHY #120 caps New Prescriptions to Start Prescriptions: Allergies Allergy/AdvReac Type Severity Reaction Status Date / Time No Known Allergies Allergy Verified 07/03/22 08:04 Exam Data for Last 24 hours Vital signs and Labs for Last 24 Hours: Temp Pulse Resp BP Pulse Ox 97.9 F 57 L 18 185/105 H 93 L 07/04/22 13:20 07/04/22 13:20 07/04/22 13:20 07/04/22 13:20 07/04/22 13:20 I & O for Last 24 hours: Intake & Output 07/02/22 07/03/22 07/04/22 07/05/22 11:59 11:59 11:59 11:59 Weight 138 lb *Routine HEENT Exam Head: Present normocephalic Eye: Present EOMI ENT: Present mucous membranes moist *Routine Neck Exam Neck: Present supple *Routine Respiratory Exam Respiratory: Absent respiratory distress *Routine Cardiovascular Exam Ca
[2022-07-04 13:31] VITALS: O2SAT 93
[2022-07-04 13:47] VITALS: BP 139/73; PULSE 72; RESP 16; TEMP 36.4; O2SAT 99
--- NOTE | 2022-07-04 13:47 | HMH.SCOPE ---
Procedure: Date: 07/04/22 Patient Date of :: 1940 Procedure Performed:: Flexible sigmoidoscopy with dilatation of stricture Indications:: Patient presents for follow-up sigmoidoscopy with dilatation.? He is an 82-year-old male who is very well-known to me.? He has a history of cardiac arrhythmia, colon cancer (status post low anterior resection in 1997), carotid stenosis, congestive heart failure, coronary artery disease, cerebrovascular accident, GERD, hyperlipidemia, previous myocardial infarction, aortic valve disease.? In December 2020 he had undergone aortic valve replacement at [facility] and had prolonged hospitalization ultimately with [facility] rehab stay as he had several strokes postoperatively.? He did have a PEG tube placed at that time.? Patient had presented in October of this year with distal bowel obstruction.? Colonoscopy performed on 11/11/2021 revealed severe colorectal stricture at the anastomosis which was dilated ultimately to 16.5 mm.? Sigmoidoscopy on 01/03/2022 was performed with dilatation to 20 mm.? Sigmoidoscopy on 03/14/2022 was performed with dilatation once again to 20 mm for recurrent stricture.? Following that patient did have ongoing symptoms consistent with obstipation and some fecal incontinence.? I had him undergo colorectal surgical consultation with Dr. Rudolph Jacinto.? It was felt that patient may require surgery and would need a colostomy.? Patient wishes to refrain from this.? He was sent back for consideration of ongoing attempts at dilatation.? He does state that his colorectal surgeon has started him on MiraLAX and his symptoms are improved. Performing Provider:: Christiano Rm MD Referring Provider:: Dr. Batista Sedation:: MAC sedation Procedure:: Patient was taken to endoscopy procedure room. He was positioned in lateral decubitus position. Adequate intravenous sedation was achieved with anesthesia titration propofol. Digital examination was performed. Olympus endoscope was inserted via the anus. Rectosigmoid stricture was encountered. This was not as profound as previously noted. The endoscope was able to be advanced beyond this to near the splenic flexure at which point some stool was encountered. Distal to this colon was perfectly clean. The stricture was dilated using the pneumatic dilator sequentially from 15-16.5 and then 18 mm. This appeared to show improvement. There was minor oozing. The endoscope was able to be advanced beyond this once again and there was no evidence of any obvious perforation. The minimal oozing post dilatation appear to have ceased. Endoscope was withdrawn. Findings:: Rectosigmoid stricture dilated to 18 mm Recommendations:: Continue MiraLAX. May consider repeat dilatation 18-20 with wire-guided dilator in the near future. Complications:: None immediately apparent Estimated blood obtained (mL): 2
[2022-07-04 13:57] VITALS: BP 127/67; PULSE 80; RESP 16; O2SAT 98
[2022-07-04 14:07] VITALS: BP 130/81; PULSE 75; RESP 16; O2SAT 97
[2022-07-04 14:17] VITALS: BP 133/73; PULSE 72; RESP 16; TEMP 36.5; O2SAT 98
== END 2022-07-04 14:30 | disposition home or self-care (01) ==
PROVIDERS: PCP Nurse Practitioner Family; Visit Provider Surgery
PROC: 0DJD8ZZ Inspection of Lower Intestinal Tract, Via Natural or Artificial Opening Endoscopic (ICD-10-PCS; CPT 45330; principal; 2022-07-04 14:00)
DX: K56.699 Other intestinal obstruction unspecified as to partial versus complete obstruction (principal); Z85.038 Personal history of other malignant neoplasm of large intestine; Z79.899 Other long term (current) drug therapy
CPT/HCPCS: 45340; C1726

== ENCOUNTER 2022-10-10 06:32 | Day surgery (SDC) | payer MEDICARE, SELFPAY ==
[2022-10-10] VITALS (7 sets, daily range): BP systolic 89–176; BP diastolic 45–83; PULSE 54–64; RESP 14–18; TEMP 36.1–36.6; O2SAT 93–96
--- NOTE | 2022-10-10 07:08 | SUR.PREOP ---
Pt has peg tube in place, LUQ.
--- NOTE | 2022-10-10 07:52 | HMH.SCOPE ---
Procedure: Date: 10/10/22 Patient Date of :: 1940 Procedure Performed:: Flexible sigmoidoscopy with dilatation of rectosigmoid stricture to 20 mm Indications:: Patient is a pleasant 82-year-old male who had previously undergone low anterior resection many years ago by Dr. Henrik Polanco for cancer. He had developed a stricture and underwent dilatation on 11/11/2021 to 16.5 mm, 01/03/2022 to 20 mm, 03/14/2022 to 20 mm and to 18 mm. Plan was for follow-up flexible sigmoidoscopy with hopeful dilatation to 20 mm. Performing Provider:: Christiano Rm MD Referring Provider:: Brayan Batista MD Sedation:: MAC sedation Procedure:: Patient was positioned in lateral decubitus position. Digital examination was performed after anesthesia sedation. Olympus endoscope was inserted via the anus. Stricture was encountered. It was not as severely stenotic as in the past. The endoscope was able to be advanced beyond this to the sigmoid colon at which point solid stool was encountered. Irrigation was performed of the stool around the stricture. Using the pneumatic dilator it was sequentially dilated from 18 to 19 to 20 mm luminal diameter. 20 mm was held for a minute or 2. Balloon dilator was then deflated. There appeared to be satisfactory result post dilatation. Endoscope was withdrawn. Please note at the completion of the procedure due to the fact that the patient no longer required his percutaneous endoscopic gastrostomy tube it was removed and dressing was applied. Findings:: Rectosigmoid stricture. Recommendations:: Likely repeat flex sig in 3 to 6 months to rule out recurrent stricture and dilate if necessary. Complications:: Not immediately apparent Estimated blood obtained (mL): 1
--- NOTE | 2022-10-10 08:04 | EXP.ANES.CKL ---
[facility] Disclaimer: The information contained in this section may have been updated after the patient was seen, as this information can be updated by other users. Medical History Colon cancer CVA (cerebrovascular accident) Stroke Surgical History History of cholecystectomy History of colon resection History of colonoscopy Family History Other Cancer Heart attack Social History Smoking Status: Never smoker second hand exposure: No alcohol intake: former substance use type: denies use current occupational status: disabled Travel in the last 8 weeks: None household members: spouse housing: house lives independently: No marital status: 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 occupational exposures/hazards: No caffeine: Yes [facility] Anesthesia Checklist Patient Identification Patient Identification: Arm Band and Verbal (Name & ) Structural Data Admitted From: Home Planned Operative Procedure/s: Flexible Sigmoidoscopy Consent for Planned Operative Procedure(s) Verified: Yes Verified Documents: Surgical Consent NPO Status Verified Time NPO: 00:00 Additional verifications Anesthesia Reactions: No Hx Blood Transfusions: No Blood Transfusion Reaction: Yes Airway Assessment C-Spine Mobility Assessed: Yes TMJ Mobility Assessed: Yes Neurological Assessment Level of Consciousness: Awake, Alert and Appropriate Anesthesia Plan ASA Class: III Anesthesia Type: MAC
== END 2022-10-10 08:35 | disposition home or self-care (01) ==
PROVIDERS: PCP Nurse Practitioner Family; Visit Provider Surgery
PROC: 0DJD8ZZ Inspection of Lower Intestinal Tract, Via Natural or Artificial Opening Endoscopic (ICD-10-PCS; CPT 45330; principal; 2022-10-10 07:30)
DX: K56.699 Other intestinal obstruction unspecified as to partial versus complete obstruction (principal); Z90.49 Acquired absence of other specified parts of digestive tract; Z85.038 Personal history of other malignant neoplasm of large intestine; Z79.899 Other long term (current) drug therapy
CPT/HCPCS: 45340; C1726

== ENCOUNTER 2022-10-13 11:35 | Emergency (ER) | payer MEDICARE, SELFPAY ==
[2022-10-13 11:36] VITALS: BP 169/89; PULSE 74; RESP 18; TEMP 36.4; O2SAT 98; BMI 21.2
--- NOTE | 2022-10-13 11:37 | ECG_ITS ---
APPROVED REPORT Exam: Resting ECG HR:64 bpm ECG Measurements Heart Rate 64 AXES UT 182 P 63 QRSd 162 QRS -61 QT 442 T 108 QTc 452 Conclusion SINUS RHYTHM LEFT AXIS DEVIATION [QRS AXIS < -30] LEFT BUNDLE BRANCH BLOCK [120+ ms QRS DURATION, 80+ ms Q/S IN V1/V2, 85+ ms R IN I/aVL/V5/V6] ABNORMAL ECG UNCONFIRMED REPORT Electronically signed by : Jarvis Paz MD 10/13/2022 17:33:21
--- NOTE | 2022-10-13 11:45 | PC.NURSE ---
DR TATE AT BEDSIDE
--- NOTE | 2022-10-13 11:46 | XR_ITS ---
FINAL REPORT CLINICAL HISTORY: cp COMPARISON: 03/30/2022 FINDINGS: SINGLE-VIEW CHEST There is mild cardiomegaly. Prosthetic valve is present. The patient is status post median sternotomy. There are mild chronic changes in the lungs. There is no pneumothorax. IMPRESSION: No acute cardiopulmonary process. Reviewed, Interpreted and Dictated by Sonny Alva MD Transcribed by Raisa Plummer Authenticated and . [facility]
[2022-10-13 11:59] LABS: Basophils # 0.1 K/mm3 (0-0.2); Basophils % 1.1 % (0.1-2.0); Eosinophils # 0.1 K/mm3 (0.0-0.4); Eosinophils % 1.8 % (0.1-12.0); Hematocrit 46.9 % (42.0-52.0); Hemoglobin 15.5 g/dL (14.1-18.0); Lymphocytes # 1.5 K/mm3 (0.7-4.5); Mean Corpuscular HGB Conc 33.1 g/dL (31.8-35.4); Mean Corpuscular Hemoglobin 30.4 pg (27.0-31.2); Mean Corpuscular Volume 91.7 fl (80-94); Mean Platelet Volume 9.8 fl (7.4-10.4); Monocytes # 0.5 K/mm3 (0.1-1.0); Monocytes % 7.7 % (1.7-9.3); Neutrophils # 3.9 K/mm3 (1.8-7.8); Neutrophils % 64.4 % (37.0-80.0); Platelet Count 169 K/mm3 (142-424); Red Blood Count 5.12 M/mm3 (4.60-6.20); Red Cell Distribution Width 12.8 % (11.5-17.5)
[2022-10-13 12:00] LABS: Chloride 104 mmol/L (98-107); Potassium 4.3 mmoL/L (3.5-5.1); Sodium 137 mmol/L (136-145)
[2022-10-13 12:02] LABS: Blood Urea Nitrogen 26 mg/dl (9-20); Creatinine Clearance Estimated 50 mL/min (50-200); Estimated Glomerular Filt Rate 81 ml/min (>60); GFR (African American) 98 ML/MIN (>60)
[2022-10-13 12:03] LABS: Alanine Aminotransferase 19 U/L (12-78); Albumin/Globulin Ratio 1.4 (1.1-1.8); Alkaline Phosphatase 113 U/L (38-126); Anion Gap 10.3 mEq/L (5-15); Aspartate Amino Transferase 34 U/L (17-59); Bilirubin,Total 1.8 mg/dl (0.2-1.3); Calcium 8.9 mg/dl (8.4-10.2); Carbon Dioxide 27 mmol/L (22.0-30.0); Globulin 2.9 g/dL (1.3-3.2); Glucose 120 mg/dl (74-100); Total Protein,Serum 6.9 g/dl (6.3-8.2)
--- NOTE | 2022-10-13 12:05 | PC.NURSE ---
XR AT BEDSIDE
[2022-10-13 12:13] LABS: NT Pro Brain Natriuretic Pep. 364 pg/mL (0-450)
[2022-10-13 12:29] LABS: Troponin I < 0.01 ng/ml (0.00-0.034)
[2022-10-13 12:30] VITALS: BP 145/73; PULSE 62; RESP 13; O2SAT 95
--- NOTE | 2022-10-13 13:30 | PC.NURSE ---
PT RESTING WITH EYES CLOSED, NO NEEDS VOICED
--- NOTE | 2022-10-13 13:34 | HMH.EDGENADL ---
Discharge Plan Disposition Patient Disposition: Home, Self-Care Condition: Good Chief Complaint: Chest Pain Prescriptions Prescriptions: No Action lisinopril 10 mg tablet 10 mg PO DAILY amlodipine 5 mg tablet 5 mg PO DAILY metoprolol succinate 25 mg tablet extended release 24 hr 25 mg PO DAILY lidocaine HCl 10 mg/mL (1 %) solution 10 mg IJ ONCE Qty: 4 0RF diazepam 2 mg tablet 1 mg PO TID PRN (Reason: GERD) Label Comments: TAKE 1 TABLET BY MOUTH THREE TIMES DAILY NEEDED FOR ANXIETY gabapentin 300 mg capsule 300 mg PO BID Qty: 150 5RF Rx Instructions: 600 mg p.o. every morning and 900 mg p.o. nightly polyethylene glycol 3350 [Miralax] 17 gram/dose powder 17 g PO DAILY atorvastatin 40 MG tablet 40 mg PO DAILY omeprazole magnesium 20 mg tablet,delayed release (DR/EC) 40 mg PO DAILY Qty: 0 0RF Referrals Follow up/Referrals: Beltran Batista MD [Primary Care Provider] - See instructions Clinical Impressions Clinical Impression: Chest pain Instructions Patient Instructions: DI for Atypical Chest Pain Discharge ED Provider: [facility] HPI General Chief complaint: Chest Pain Stated complaint: CP Time Seen by Provider: 10/13/22 11:48 Mode of Arrival: Wheelchair Source of Information: Patient Limitations: No Limitations Description of Symptoms (Recalled from ER Triage Doc. by RN): PT REPORTS CHEST PAIN THAT RADIATES TO LEFT ARM THAT BEGAN ABOUT [id number] THIS AM History of Present Illness HPI narrative: 82yo M presents the emergency department secondary to chest pain that radiates to his left shoulder and upper arm. Reports mild nausea when symptoms onset at approximately 9:00 this morning. No shortness of breath, no fever patient denies history of ND but reports history of TAVR, two-vessel bypass, coronary stent after bypass. Related Data Home Medications Medication Instructions Recorded Confirmed atorvastatin 40 mg tablet 40 mg PO DAILY Cholesterol 02/22/19 10/10/22 lisinopril 10 mg tablet 10 mg PO DAILY Hypertension 02/20/20 10/10/22 amlodipine 5 mg tablet 5 mg PO DAILY Hypertension 10/25/20 10/10/22 metoprolol succinate 25 mg 25 mg PO DAILY Hypertension 05/14/21 10/10/22 tablet,extended release 24 hr diazepam 2 mg tablet 1 mg PO TID PRN GERD 03/25/22 10/10/22 polyethylene glycol 3350 17 17 g PO DAILY bowels 07/22/22 10/10/22 gram/dose oral powder (Miralax) Previous Rx's Medication Instructions Recorded omeprazole magnesium 20 mg 40 mg PO DAILY GERD ##0 05/25/21 tablet,delayed release gabapentin 300 mg capsule 300 mg PO BID Neuropathy, seizure 09/15/22 #150 caps Allergies Allergy/AdvReac Type Severity Reaction Status Date / Time No Known Allergies Allergy Verified 10/10/22 06:59 [facility] Disclaimer: The information contained in this section may have been updated after the patient was seen, as this information can be updated by other users. Medical History Colon cancer CVA (cerebrovascular accident) Stroke Surgical History History of cholecystectomy History of colon resection History of colonoscopy Family History Other Cancer Heart attack Social History Smoking Status: Never smoker second hand exposure: No alcohol intake: former substance use type: denies use current occupational status: disabled Travel in the last 8 weeks: None household members: spouse housing: house lives independently: No marital status: 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 occupational exposures/hazards: No caffeine: Yes ROS Obtained: Yes Systems reviewed as appropriate & no additional complaints except as documented Physical Exam General General appearance: damian
--- NOTE | 2022-10-13 14:19 | PC.NURSE ---
DR TATE AT BEDSIDE TO UPDATE PT ON POC. FAMILY AT BEDSIDE
[2022-10-13 15:21] LABS: Troponin I < 0.01 ng/ml (0.00-0.034)
--- NOTE | 2022-10-13 15:56 | PC.NURSE ---
Informed patient of plan of care, updated communication on lab and imaging results
--- NOTE | 2022-10-13 16:04 | PC.NURSE ---
ALIREZA DAILY at for update on POC
[2022-10-13 16:19] VITALS: BP 92/62; PULSE 71; RESP 18; TEMP 36.4; O2SAT 96
== END 2022-10-13 16:29 | disposition home or self-care (01) ==
PROVIDERS: Emergency Provider Family Medicine; PCP Family Medicine
DX: R07.89 Other chest pain (principal); I44.7 Left bundle-branch block, unspecified; R11.0 Nausea
CPT/HCPCS: 71045; 80053; 83880; 84484; 85025; 93005; 96374; 99284; 99285; J2405

== ENCOUNTER → 2022-11-03 09:20 | Outpatient (POV) | payer MEDICARE, SELFPAY ==
[2022-11-03 09:34] VITALS: BP 129/67; PULSE 80; RESP 18; O2SAT 97; BMI 21.2
--- NOTE | 2022-11-03 09:36 | EXP.PAIN.SOA ---
[facility] Pain Management SOAP Note Subjective:: Patient is a pleasant 82-year-old male who presents today for follow-up. We are currently treating the patient for chronic sacroiliitis, bilateral osteoarthritis of knees. Today he rates his pain a 7 out of 10. He states his pain is all in his low back along the left side predominantly. He describes this as an aching, throbbing sensation that is worse with increased activity such as prolonged standing, walking, sitting. He does also state that he is experiencing some worsening pain of his left knee. Patient has had genicular nerve blocks and the genicular RFA in the past that did provide significant relief. Patient denies any new trauma or injury. Patient denies any change to location or type of pain he experiences. Patient states he has chronic pain related to bilateral sacroiliitis. He does state it interferes with his ability to perform activities of daily living such as cooking and cleaning. He did have a left corner lock SI stabilization procedure in the past however he states he did not get significant relief with it. He was supposed to proceed forward and have his right side done however after the left did not work he did not proceed forward with that plan of care. He states that Dr. Powell did do a procedure where he did 3 screws along the left side however he states that he retired and another doctor came in. He states that Wanted to do a procedure to remove the cadaver bone from the SI stabilization at a cage and thoroughly clean out the joint and that he states he has not been back since. Patient has continued to have SI injections with his last one at [facility] in April. He does also state that he has had a stroke in the past that did leave residual weakness along his right side. Patient is currently managed with gabapentin 300 mg 5 times a day from Dr. Santos's office. Patient denies any side effects from this medication. His [place]den is [id number]. Its been reviewed and appropriate. Review of Systems: General: No recent weight changes, no fever, no sleep disturbances Respiratory: No cough, no shortness of air, no recurring pulmonary infections Cardiovascular/peripheral vascular: No chest pain, no palpitations, no edema, no shortness of breath Gastrointestinal: No new onset incontinence, normal bowel movements reported Genitourinary: No new onset incontinence Musculoskeletal: Low back pain Psychiatric: [Normal mood/affect] Neurological: [Denies weakness in extremities], [denies balance issues] Objective:: Physical Exam: General: Alert and oriented x3, no acute distress, pleasant and cooperative Lungs: Respirations even and unlabored, symmetrical chest expansion Eyes: PERRL Musculoskeletal: Flexion and extension of lumbar [spine] somewhat guarded secondary to pain, [antalgic gait noted] extreme point tenderness along left SI with positive left Silvia's, Brandi's, Gaenslen's, compression and distraction exam Neurological: Speech clear, no gross sensory deficit Assessment:: Chronic sacroiliitis, bilateral osteoarthritis of knees Plan:: Patient is experiencing significant pain in his low back with limited range of motion. Patient did have extreme point tenderness along his left SI with positive left Silvia's, Brandi's, Gaenslen's, compression and distraction exam. Patient does have chronic sacroiliitis and this pain is been going on for 6 months or more. I have recommended that he may benefit from a left SI injection. Risk and benefits were discussed with the patient and he would like to proceed forward with this plan of care. Patient has had multiple SI injections in the past that have provided significant relief. Patient has tried and failed conservative therapy such as oral medications, heat and ice, topicals, physical therapy, at home exercise and stretching for longer than 6 weeks. We will schedule the patient for a left SI injection. Patient has been instructed to contact the
== END ==
PROVIDERS: Visit Provider Nurse Practitioner Family
DX: M17.0 Bilateral primary osteoarthritis of knee (principal); M46.1 Sacroiliitis, not elsewhere classified
CPT/HCPCS: 99212; G0463

== ENCOUNTER 2022-11-11 08:35 | Day surgery (SDC) | payer MEDICARE, SELFPAY ==
[2022-11-11 09:04] VITALS: BP 138/71; PULSE 68; RESP 18; TEMP 36.5; O2SAT 90; BMI 21.2
[2022-11-11 09:20] VITALS: BP 130/72; PULSE 63; RESP 18; O2SAT 95
[2022-11-11 09:21] VITALS: BP 130/72; PULSE 63; RESP 18; O2SAT 95
[2022-11-11 09:26] VITALS: BP 148/70; PULSE 64; RESP 18; O2SAT 90
--- NOTE | 2022-11-11 09:32 | EXP.PAIN.PRO ---
Procedure Date: 11/11/22 Time: 09:10 Anesthesiologist:: Darell James CRNA Complications:: None Pre-procedure Diagnosis:: Left sacroiliitis Post-procedure Diagnosis:: Same Indications for Procedure:: Very pleasant 82-year-old male who comes our clinic today for left sacroiliac joint injection. He has extreme point tenderness over the left sacroiliac joint. He rates his pain 7/10. Procedure Details:: Procedure: Left sacroiliac injection under fluoroscopy Informed consent was obtained and the risk and benefits of the procedure were explained to the patient.~ The patient was taken to the procedure room and noninvasive monitors were placed including noninvasive blood pressure cuff and pulse oximeter.~ The patient was placed prone on the procedure table.~ The~ left hip was cleansed using Betadine as a cleansing solution.~ C-arm fluorosocpy was used to view the left SI joint.~ The skin and subcutaneous tissues were anesthetized using Lidocaine 1.5% and a 25-gauge needle.~ After this, a 22-gauge spinal needle was inserted under fluoroscopic guidance into the inferior aspect of the left SI joint.~ Omnipaque dye was injected and a good spread was seen throughout the joint.~ After this, approximately 5 mL of bupivacaine 0.25% and Depo-Medrol 40 mg was incrementally injected into the sacroiliac joint.~ The patient tolerated the procedure well with no complications.~ The patient was observed in the Pain Clinic for a period of 30-45 minutes, then discharged home neurologically intact.~ Plan and Disposition:: Patient was discharged without incident.
== END 2022-11-11 09:26 | disposition home or self-care (01) ==
PROVIDERS: PCP Family Medicine; Visit Provider Nurse Anesthetist, Certified Registered
DX: M46.1 Sacroiliitis, not elsewhere classified (principal)
CPT/HCPCS: 27096; G0260; J1040

== ENCOUNTER → 2022-11-27 11:13 | Outpatient (POV) | payer MEDICARE, SELFPAY ==
--- NOTE | 2022-11-27 11:50 | EXP.PAIN.SOA ---
[facility] Pain Management SOAP Note Subjective:: Patient is a pleasant 82-year-old male who presents today for follow-up of left SI injection on 11/11/2022.? We are currently treating the patient for chronic sacroiliitis, bilateral osteoarthritis of knees.? Today he rates his pain a 7 out of 10.? He states he has had significant improvement of his pain symptoms following this injection. Patient does have a longstanding history of chronic sacroiliitis along the left side. He did previously have a corner loc procedure however it did not provide significant relief. This was done by Dr. Powell.he does state that prior to him retiring he had talked about doing a similar procedure using screws to stabilize his SI joint. He continues to state his pain is all in his low back along the left side. He describes this as an aching, throbbing sensation that is worse with increased activity such as prolonged standing, walking, sitting.? Patient denies any new trauma or injury. Patient denies any change to location or type of pain he experiences.? He does state his pain interferes with his ability to perform activities of daily living such as cooking and cleaning.? 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 Patient previously had SI injections every 3 weeks at [facility]. He has had a stroke in the past that did leave residual weakness along his right side.? Patient is currently managed with gabapentin 300 mg 5 times a day from Dr. Santos's office.? Patient denies any side effects from this medication.? He also states he has recently noticed a knot that came up on his low back. He states he is scheduled to go see Dr. Batista on the and Dr. Rm on the for this issue. He denies any pain at this site and that it is movable. His Arden is [id number].? Its been reviewed and appropriate. Review of Systems: General: No recent weight changes, no fever, no sleep disturbances Respiratory: No cough, no shortness of air, no recurring pulmonary infections Cardiovascular/peripheral vascular: No chest pain, no palpitations,? no edema, no shortness of breath Gastrointestinal: No new onset incontinence, normal bowel movements reported Genitourinary: No new onset incontinence Musculoskeletal: Low back pain Psychiatric: [Normal mood/affect] Neurological: [Denies weakness in extremities], [denies balance issues] Objective:: Physical Exam: General: Alert and oriented x3, no acute distress, pleasant and cooperative Lungs: Respirations even and unlabored, symmetrical chest expansion Eyes: PERRL Musculoskeletal: Flexion and extension of lumbar [spine] somewhat guarded secondary to pain, [antalgic gait noted] point tenderness along left SI with positive left Silvia's, Brandi's, Gaenslen's, compression and distraction exam Neurological: Speech clear, no gross sensory deficit Assessment:: Chronic sacroiliitis, bilateral osteoarthritis of knees Plan:: Patient continues to experience chronic pain related to frequent sacroiliitis. Patient has gotten multiple SI injections in the past that did provide significant relief however only lasting short-term. Patient did have limited range of motion of his lumbar spine along with point tenderness at his left SI with positive left Silvia's, Brandi's, Gaenslen's, compression and distraction exam. I have discussed with the patient that he may benefit from a left SI stabilization procedure with titanium screws. Risk and benefits of this procedure and educational handouts were gone over during today's visit. Patient would like to proceed forward with this plan of care. He is not on any blood thinners. We will schedule him for a left SI stabilization procedure with transLOC. Patient has been instructed to contact the clinic with any concerns before the next appointment. Dr. Jimenez has reviewed this note and agrees with this plan of care. This note was dictated using voic
[2022-11-27 12:33] VITALS: BP 113/75; PULSE 75; RESP 18; O2SAT 98; BMI 19.8
== END ==
PROVIDERS: PCP Family Medicine; Visit Provider Nurse Practitioner Family
DX: M17.0 Bilateral primary osteoarthritis of knee (principal); M46.1 Sacroiliitis, not elsewhere classified
CPT/HCPCS: 99212; G0463

== ENCOUNTER 2022-12-05 12:04 | Day surgery (SDC) | payer MEDICARE, SELFPAY ==
[2022-12-05 12:10] VITALS: BP 118/70; PULSE 66; RESP 20; O2SAT 96; BMI 21.2
[2022-12-05 12:22] VITALS: BP 195/75; PULSE 71; RESP 18; O2SAT 98
[2022-12-05 12:23] VITALS: BP 195/75; PULSE 71; RESP 18; O2SAT 98
[2022-12-05 12:30] VITALS: BP 123/67; PULSE 63; RESP 20
--- NOTE | 2022-12-05 12:41 | P.PCN_ITS ---
Procedure Date: 12/05/22 Time: 12:41 Anesthesiologist:: Ron Jimenez MD Complications:: None Pre-procedure Diagnosis:: Sacroiliitis Post-procedure Diagnosis:: Same Indications for Procedure:: This patient is a pleasant 82-year-old white male who we are treating for left- sided hip pain. He is tender over the left SI joint. Is positive Silvia's test on the left side. He is positive Talha test on left side. He has positive SI joint compression on the left side. He has benefited from these injections in the past. We will plan on repeat therapeutic left SI joint injection under fluoroscopy today. Procedure Details:: Left SI joint injection under fluoroscopy Informed consent was obtained and the risks and benefits of the procedure was explained to the patient. Patient was taken to the procedure room. Patient was placed prone on the procedure table. The left hip was prepped using ChloraPrep. The skin and subcutaneous tissues were anesthetized using lidocaine. I placed a 22-gauge spinal needle into the inferior aspect of the left SI joint. Needle placement was confirmed with dye. After this we injected 5 mL bupivacaine 0.25% and Depo-Medrol 40 mg into the left SI joint. The patient tolerated the procedure well with no complication. Plan and Disposition:: We will follow-up with him in 2 weeks. Will reevaluate symptoms at this time. If this does not help with his pain for 3 months he may be a candidate for epidural steroid injection at L5-S1 as this may be contributing to his pain symptoms
[2022-12-05 13:24] LABS: Blood Urea Nitrogen 31 mg/dl (9-20); Creatinine Clearance Estimated 46 mL/min (50-200); Estimated Glomerular Filt Rate 64 ml/min (>60); GFR (African American) 77 ML/MIN (>60)
== END 2022-12-05 12:30 | disposition home or self-care (01) ==
PROVIDERS: PCP Surgery; Visit Provider Anesthesiology
DX: M46.1 Sacroiliitis, not elsewhere classified (principal)
CPT/HCPCS: 27096; 36415; 82565; 84520; G0260; J1040; Q9966

== ENCOUNTER → 2022-12-15 12:59 | Outpatient (CLI) | payer MEDICARE, SELFPAY ==
--- NOTE | 2022-12-15 12:59 | CT_ITS ---
FINAL REPORT TECHNIQUE: Axial images were obtained from the iliac crest to the pubic symphysis by computed tomography pre-and postcontrast administration. Oral contrast was also administered. Coronal and sagittal reformats were submitted. This study was performed with techniques to keep radiation doses as low as reasonably achievable (ALARA). Individualized dose reduction techniques using automated exposure control or adjustment of mA and/or kV according to the patient''s size were employed. CLINICAL HISTORY: Sebaceous cyst, posterior sacrum area FINDINGS: Pelvis: There is a 29 x 14 x 25 mm mass overlying the posterior medial right iliac bone which may represent a complex cyst versus neoplasm. This demonstrates mild contrast enhancement along the medial border. Postoperative changes are seen of the lower pelvis. There is urinary bladder wall thickening with trabeculation. Degenerative changes are seen of the lower lumbar spine and hips. Presumed postoperative changes are noted of the left SI joint. There is a non specific, sclerotic focus in the posterior medial right iliac bone measuring 8 mm which could represent bone island or sclerotic metastasis. IMPRESSION: Mass overlying the posterior medial right iliac bone which may represent complex cyst versus neoplasm. Nonspecific sclerotic focus of the posterior medial right iliac bone which could represent bone island or sclerotic metastasis. Reviewed, Interpreted and Dictated by Christiano Gurrola III, MD Transcribed by Jennifer Tinajero Authenticated and [facility]
== END ==
PROVIDERS: PCP Family Medicine; Visit Provider Surgery
DX: L72.3 Sebaceous cyst (principal); Z85.038 Personal history of other malignant neoplasm of large intestine
CPT/HCPCS: 72194; Q9967

== ENCOUNTER → 2022-12-19 09:13 | Outpatient (POV) | payer MEDICARE, SELFPAY ==
[2022-12-19 10:00] VITALS: BP 142/100; PULSE 60; RESP 18; O2SAT 97; BMI 19.4
--- NOTE | 2022-12-19 11:26 | EXP.PAIN.SOA ---
[facility] Pain Management SOAP Note Subjective:: This patient is a very pleasant 82-year-old male that comes our clinic today for follow-up visit after receiving left sacroiliac joint injection on 12/05/2022. Patient reports 2 weeks of significant improvement terms of his left posterior hip pain. After this time his pain has begun to return however, he is still reporting some relief. His main complaint is low lumbar midline and off the midline to the left back pain. Also, left hip and leg radicular symptoms. Patient has multilevel degenerative disc lumbar spine. Objective:: Patient is awake alert [place] x3. In no acute distress. Flexion-extension lumbar spine somewhat guarded secondary to pain. Deep tendon reflexes upper and lower extremities normal. Motor strength upper and lower extremities normal. There is no gross sensory deficit. Gait is normal. Assessment:: Degenerative disc lumbar spine multilevels. Lumbar radiculopathy. Bilateral sacroiliitis. Plan:: Discussed in detail with the patient regarding lumbar epidural steroid injection at L4-5 level. Patient has undergone left sacroiliac joint stabilization procedure. However, he continues to have some degree of pain in that area. Patient has continued to fail NSAIDs as well as Tylenol. I answered his questions regarding the epidural steroid injection. He wishes to proceed [facility] Disclaimer: The information contained in this section may have been updated after the patient was seen, as this information can be updated by other users. Medical History Colon cancer CVA (cerebrovascular accident) HTN (hypertension) Seizure disorder Stroke Surgical History History of aortic valve replacement History of cholecystectomy History of colon resection History of colonoscopy History of heart surgery Family History Other Cancer Heart attack Social History Smoking Status: Never smoker second hand exposure: No alcohol intake: former substance use type: denies use current occupational status: retired Travel in the last 8 weeks: None household members: spouse housing: house lives independently: No marital status: 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 occupational exposures/hazards: No caffeine: Yes
== END ==
PROVIDERS: PCP Family Medicine; Visit Provider Nurse Anesthetist, Certified Registered
DX: M51.16 Intervertebral disc disorders with radiculopathy, lumbar region (principal); M46.1 Sacroiliitis, not elsewhere classified
CPT/HCPCS: 99212; G0463

== ENCOUNTER 2022-12-30 09:40 | Day surgery (SDC) | payer MEDICARE, SELFPAY ==
[2022-12-30 09:53] VITALS: BP 140/70; PULSE 61; RESP 18; TEMP 36.3; O2SAT 98; BMI 19.8
--- NOTE | 2022-12-30 09:55 | EXP.PAIN.PRO ---
Procedure Date: 12/30/22 Time: 09:55 Anesthesiologist:: Darell James CRNA Complications:: None Pre-procedure Diagnosis:: Degenerative disc disease lumbar spine multilevels. Lumbar radiculopathy. Lumbar spondylosis. Multilevel lumbar facet arthropathy. Post-procedure Diagnosis:: Same. Indications for Procedure:: Patient is a very pleasant 82-year-old male that comes our clinic today for lumbar epidural steroid injection at the L4-5 level. Patient describes low back pain as constant, dull, aching. Patient also complains of bilateral hip and leg radicular symptoms at times. He rates his pain 7/10. Procedure Details:: Procedure: Lumbar epidural steroid injection under fluoroscopy Informed consent was obtained and the risks and benefits of the procedure were explained to the patient. The patient was taken to the procedure room and noninvasive monitors placed, including noninvasive blood pressure cuff and pulse oximeter. The back was viewed using C-arm Fluoroscopy and prepped using Chloraprep as a cleansing solution and the L3-4 interspace was palpated. Skin and subcutaneous tissues were anesthetized using lidocaine 1.5% and a 25-gauge needle. After this, an 18-gauge Touhy epidural needle was placed into the L3-4 interspace and advanced using fluoroscopic guidance and loss of resistance to air until the epidural space was encountered. After confirmation of needle placement in the epidural space, with dye, a solution containing normal saline, 3 mL and Depo-Medrol 80 mg were incrementally injected into the lumbar epidural space. The patient tolerated the procedure well with no complications. I was unable to access the L4-5 level. The epidural steroid injection was given at the L3-4 level. The patient was observed in the Pain Clinic and then discharged home neurologically intact. Plan and Disposition:: Patient was discharged without incident.
[2022-12-30 09:57] VITALS: BP 121/61; PULSE 63; RESP 18; O2SAT 97
[2022-12-30 09:58] VITALS: BP 121/61; PULSE 63; RESP 18; O2SAT 97
[2022-12-30 10:02] VITALS: BP 122/64; PULSE 63; RESP 18; O2SAT 98
== END 2022-12-30 10:02 | disposition home or self-care (01) ==
PROVIDERS: PCP Family Medicine; Visit Provider Nurse Anesthetist, Certified Registered
DX: M51.16 Intervertebral disc disorders with radiculopathy, lumbar region (principal); M47.26 Other spondylosis with radiculopathy, lumbar region
CPT/HCPCS: 62323; J1040

== ENCOUNTER → 2023-01-14 09:27 | Outpatient (POV) | payer MEDICARE, SELFPAY ==
--- NOTE | 2023-01-14 10:33 | EXP.PAIN.SOA ---
[facility] Pain Management SOAP Note Subjective:: Patient is a pleasant 82-year-old male who presents today for follow-up of lumbar epidural steroid injection of L3-L4 on 12/30/2022. We are currently treating the patient for low back pain, degenerative disc disease of lumbar spine with lumbar radiculopathy symptoms chronic sacroiliitis, bilateral osteoarthritis of knees.? Today he rates his pain a 3 out of 10.? He does state that he has had at least 50% improvement following this injection and feels like it is still continuing to provide additional relief. Today he states his pain is more related to his right knee. He does describe this as an aching sensation that is worse with increased activity. Patient denies any previous knee replacements. He does state that he has gotten injections into his knee in the past however this did not provide any additional relief. He does state the pain interferes with his ability to perform activities of daily living such as cooking and cleaning or even simple ambulation. 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 he is currently managed with gabapentin 300 mg 5 times [address] day from Dr[address] Santos's office.? Patient denies any side effects from this medication.? From our last visit he has had imaging related to a knot that appeared on his low back. Patient did have a CT that showed possible cyst or neoplasm. He states that his doctor did send him to an oncologist and that he is scheduled to see their office on January 29. His Arden is [id number].? Its been reviewed and appropriate. Review of Systems: General: No recent weight changes, no fever, no sleep disturbances Respiratory: No cough, no shortness of air, no recurring pulmonary infections Cardiovascular/peripheral vascular: No chest pain, no palpitations,? no edema, no shortness of breath Gastrointestinal: No new onset incontinence, normal bowel movements reported Genitourinary: No new onset incontinence Musculoskeletal: Right knee pain Psychiatric: [Normal mood/affect] Neurological: [Denies weakness in extremities], [denies balance issues] Objective:: Physical Exam: General: Alert and oriented x3, no acute distress, pleasant and cooperative Lungs: Respirations even and unlabored, symmetrical chest expansion Eyes: PERRL Musculoskeletal: Flexion and extension of right knee somewhat guarded secondary to pain, [antalgic gait noted] Neurological: Speech clear, no gross sensory deficit Assessment:: Low back pain, degenerative disc disease of lumbar spine with lumbar radiculopathy symptoms, chronic sacroiliitis, bilateral osteoarthritis of knees Plan:: Patient is experiencing worsening pain in his right knee with limited range of motion. I have discussed with the patient that he may benefit from a right genicular nerve block. Risk and benefits were discussed with the patient and he would like to proceed forward with this plan of care. Patient has tried and failed conservative therapy such as oral medications, heat and ice, topicals, intra-articular injections and physical therapy. We will schedule the patient for a right genicular nerve block. Patient has been instructed to contact the clinic with any concerns before the next appointment. Dr. Jimenez has reviewed this note and agrees with this plan of care. This note was dictated using voice recognition software and make contain errors or omissions. [facility] Disclaimer: The information contained in this section may have been updated after the patient was seen, as this information can be updated by other users. 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
[2023-01-14 12:26] VITALS: BP 142/85; PULSE 78; RESP 18; O2SAT 97; BMI 19.5
== END ==
PROVIDERS: PCP Family Medicine; Visit Provider Nurse Practitioner Family
DX: M51.16 Intervertebral disc disorders with radiculopathy, lumbar region (principal); M46.1 Sacroiliitis, not elsewhere classified; M17.0 Bilateral primary osteoarthritis of knee
CPT/HCPCS: 99212; G0463

== ENCOUNTER 2023-01-20 09:02 | Day surgery (SDC) | payer MEDICARE, SELFPAY ==
[2023-01-20 09:13] VITALS: BP 142/67; PULSE 77; RESP 18; TEMP 36.3; O2SAT 97; BMI 19.8
[2023-01-20 09:21] VITALS: BP 157/91; PULSE 68; RESP 18; O2SAT 96
[2023-01-20 09:28] VITALS: BP 126/73; PULSE 72; RESP 18; O2SAT 98
--- NOTE | 2023-01-20 09:28 | EXP.PAIN.PRO ---
Procedure Date: 01/20/23 Time: 09:15 Anesthesiologist:: Darell James CRNA Complications:: None Pre-procedure Diagnosis:: Degenerative osteoarthritis right knee. Chronic right knee pain. Post-procedure Diagnosis:: Same. Indications for Procedure:: Patient is a pleasant 82-year-old male who comes our clinic today for genicular nerve block right knee. Patient had this in the past with significant improvement terms of his overall right knee pain. He rates his pain today 8/10. Patient has difficulty with ambulation. Difficulty transitioning from sitting to standing position due to right knee pain. Procedure Details:: Right knee genicular block Informed consent was obtained and the risk and benefits of the procedure was explained to the patient. The patient was taken to the procedure room. The right knee was prepped using ChloraPrep. I placed 22-gauge needles into the area of the right superior medial genicular nerve, right superior lateral genicular nerve and right inferior medial genicular nerve. Needle placement was confirmed in AP and lateral views with dye. We then injected bupivacaine 0.25% 3 mL's and Depo-Medrol 25 mg into each area of the right superior medial genicular nerve, right superior lateral genicular nerve and right inferior medial genicular nerve. Patient tolerated the procedure well with no complications. Plan and Disposition:: Patient was discharged without incident.
== END 2023-01-20 09:28 | disposition home or self-care (01) ==
LOC: SC.PAINP 09:03
PROVIDERS: PCP Family Medicine; Visit Provider Nurse Anesthetist, Certified Registered
DX: M17.11 Unilateral primary osteoarthritis, right knee (principal); M25.561 Pain in right knee; G89.29 Other chronic pain
CPT/HCPCS: 64454; J1040

== ENCOUNTER → 2023-02-04 09:58 | Outpatient (POV) | payer MEDICARE, SELFPAY ==
[2023-02-04 10:05] VITALS: BP 117/68; PULSE 86; RESP 17; O2SAT 96; BMI 19.3
--- NOTE | 2023-02-04 10:08 | EXP.PAIN.SOA ---
[facility] Pain Management SOAP Note Subjective:: Patient is a pleasant 82-year-old male who presents today for follow-up of right genicular nerve block on 01/20/2023. We are currently treating the patient for degenerative disc disease of lumbar spine with lumbar radiculopathy symptoms, chronic sacroiliitis, bilateral osteoarthritis of knees. Today he rates his pain a 3 out of 10. Patient states he had at least 80% improvement. He does state that he was able to increase his activity with decreased pain and felt more functional. He does state that he has a torn meniscus in this knee and that he has been to different orthopedic doctors who were not recommending a knee scope to trim the meniscus tear. He states he does have follow-ups with Dr. Bernardo's office on February 09 and that he is also seen a specialist for the cyst/neoplasm that was found in his low back on February 10. Patient does state that his pain in his knee is a constant aching, throbbing sensation that is worse with increased activity or ambulation. He is unable to perform certain range of motion exercises due to the increased pain. He does state it interferes with his ability perform activities of daily living such as cooking and cleaning. He is prescribed gabapentin 300 mg 6 times [address] day [address] Dr[address] Santos's office. He denies any side effects from this medication. His Arden is [id number]. Its been reviewed and appropriate. Review of Systems: General: No recent weight changes, no fever, no sleep disturbances Respiratory: No cough, no shortness of air, no recurring pulmonary infections Cardiovascular/peripheral vascular: No chest pain, no palpitations, no edema, no shortness of breath Gastrointestinal: No new onset incontinence, normal bowel movements reported Genitourinary: No new onset incontinence Musculoskeletal: Right knee pain Psychiatric: [Normal mood/affect] Neurological: [Denies weakness in extremities], [denies balance issues] Objective:: Physical Exam: General: Alert and oriented x3, no acute distress, pleasant and cooperative Lungs: Respirations even and unlabored, symmetrical chest expansion Eyes: PERRL Musculoskeletal: Flexion and extension of right knee somewhat guarded secondary to pain, [antalgic gait noted] Neurological: Speech clear, no gross sensory deficit Assessment:: Degenerative disc disease of lumbar spine with lumbar radiculopathy symptoms, chronic sacroiliitis, bilateral knee pain, osteoarthritis bilateral knees Plan:: Patient had significant improvement following his first right genicular nerve block however it is starting to wear off and having increasing pain in this joint. Patient had limited range of motion and I have recommended that he repeat his prior genicular nerve block. Risk and benefits were discussed with the patient and he would like to proceed forward with this plan of care. We will schedule the patient for a right genicular nerve block #2. Patient has been instructed to contact the clinic with any concerns before the next appointment. Dr. Jimenez has reviewed this note and agrees with this plan of care. This note was dictated using voice recognition software and make contain errors or omissions. [facility] Disclaimer: The information contained in this section may have been updated after the patient was seen, as this information can be updated by other users. 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
== END ==
PROVIDERS: PCP Family Medicine; Visit Provider Nurse Practitioner Family
DX: M51.16 Intervertebral disc disorders with radiculopathy, lumbar region (principal); M46.1 Sacroiliitis, not elsewhere classified; G89.29 Other chronic pain; M17.0 Bilateral primary osteoarthritis of knee
CPT/HCPCS: 99212; G0463

== ENCOUNTER 2023-02-24 09:29 | Day surgery (SDC) | payer MEDICARE, SELFPAY ==
[2023-02-24 09:35] VITALS: BP 135/65; PULSE 69; RESP 18; O2SAT 94; BMI 21.1
[2023-02-24 09:46] VITALS: BP 127/63; PULSE 71; RESP 18; O2SAT 97
--- NOTE | 2023-02-24 09:48 | EXP.PAIN.PRO ---
Procedure Date: 02/24/23 Time: 09:45 Anesthesiologist:: Darell James CRNA Complications:: None Pre-procedure Diagnosis:: Chronic right knee pain. Osteoarthritis right knee. Post-procedure Diagnosis:: Same. Indications for Procedure:: Patient is a very pleasant 82-year-old male that comes our clinic today for a repeat right genicular nerve block. Patient states he still feeling somewhat improved in terms of his right knee joint pain since his first genicular block. He rates his pain 6/10. Patient states pain intensifies with ambulation. Patient reports difficulty transitioning from sitting to standing. Procedure Details:: Right knee genicular block Informed consent was obtained and the risk and benefits of the procedure was explained to the patient. The patient was taken to the procedure room. The right knee was prepped using ChloraPrep. I placed 22-gauge needles into the area of the right superior medial genicular nerve, right superior lateral genicular nerve and right inferior medial genicular nerve. Needle placement was confirmed in AP and lateral views with dye. We then injected bupivacaine 0.25% 3 mL's and Depo-Medrol 25 mg into each area of the right superior medial genicular nerve, right superior lateral genicular nerve and right inferior medial genicular nerve. Patient tolerated the procedure well with no complications. Plan and Disposition:: Patient was discharged without incident.
[2023-02-24 10:05] VITALS: BP 138/62; PULSE 70; RESP 18; O2SAT 95
== END 2023-02-24 10:05 | disposition home or self-care (01) ==
PROVIDERS: PCP Family Medicine; Visit Provider Nurse Anesthetist, Certified Registered
DX: M17.11 Unilateral primary osteoarthritis, right knee (principal); M25.561 Pain in right knee; G89.29 Other chronic pain
CPT/HCPCS: 64454; J1040

== ENCOUNTER → 2023-03-18 10:56 | Outpatient (POV) | payer MEDICARE, SELFPAY ==
--- NOTE | 2023-03-18 10:59 | EXP.PAIN.SOA ---
[facility] Pain Management SOAP Note Subjective:: Patient is a pleasant 82-year-old male who presents today for follow-up of his second right genicular nerve block on 02/24/2023. We are currently treating the patient for degenerative disc disease of lumbar spine with lumbar radiculopathy symptoms, chronic sacroiliitis, bilateral osteoarthritis of knees. Today he rates his pain a 3 out of 10. He states that it has provided significant improvement the second block however it did not do as well as the first that provided 80%. He does state he has been able to move around easier. 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 He states he will have to go through radiation and chemo following its and that he is not able to schedule his genicular RFA until after all of this is over. He is prescribed gabapentin 300 mg 6 times a day from Dr. Santos's office. He denies any side effects from this medication. His Arden is [id number]. Its been reviewed and appropriate. Review of Systems: General: No recent weight changes, no fever, no sleep disturbances Respiratory: No cough, no shortness of air, no recurring pulmonary infections Cardiovascular/peripheral vascular: No chest pain, no palpitations, no edema, no shortness of breath Gastrointestinal: No new onset incontinence, normal bowel movements reported Genitourinary: No new onset incontinence Musculoskeletal: Right knee pain Psychiatric: [Normal mood/affect] Neurological: [Denies weakness in extremities], [denies balance issues] Objective:: Physical Exam: General: Alert and oriented x3, no acute distress, pleasant and cooperative Lungs: Respirations even and unlabored, symmetrical chest expansion Eyes: PERRL Musculoskeletal: Flexion and extension of right knee somewhat guarded secondary to pain, [antalgic gait noted] Neurological: Speech clear, no gross sensory deficit Assessment:: Degenerative disc disease of lumbar spine with lumbar radiculopathy symptoms, chronic sacroiliitis, bilateral osteoarthritis of knees Plan:: Patient has gotten 2 successful genicular nerve blocks in his right knee however due to recent diagnosis of sarcoma we will have to postpone any additional injective therapy at this time. I have counseled the patient to contact our office with any updates. Patient will return to clinic in 3 months for reevaluation of symptoms and plan of care. Patient has been instructed to contact the clinic with any concerns before the next appointment. Dr. Jimenez has reviewed this note and agrees with this plan of care. This note was dictated using voice recognition software and make contain errors or omissions. [facility] Disclaimer: The information contained in this section may have been updated after the patient was seen, as this information can be updated by other users. Medical History Colon cancer CVA (cerebrovascular accident) HTN (hypertension) Seizure disorder Suspected focal seizure disorder Stroke Surgical History History of aortic valve replacement History of cholecystectomy History of colon resection History of colonoscopy History of heart surgery Family History Other Cancer Heart attack Social History Smoking Status: Never smoker second hand exposure: No alcohol intake: former substance use type: denies use current occupational status: retired Travel in the last 8 weeks: None household members: spouse housing: house lives independently: No marital status: 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 occupational exposures/hazards: No caffeine: Yes
[2023-03-18 12:02] VITALS: BP 141/69; PULSE 71; RESP 18; O2SAT 97; BMI 19.3
== END ==
PROVIDERS: PCP Family Medicine; Visit Provider Nurse Practitioner Family
DX: M51.16 Intervertebral disc disorders with radiculopathy, lumbar region (principal); M46.1 Sacroiliitis, not elsewhere classified; M17.0 Bilateral primary osteoarthritis of knee; G89.29 Other chronic pain; C49.6 Malignant neoplasm of connective and soft tissue of trunk, unspecified
CPT/HCPCS: 99212; G0463

== ENCOUNTER → 2023-05-04 12:33 | Outpatient (CLI) | payer MEDICARE, SELFPAY ==
[2023-05-04 14:50] LABS: Alanine Aminotransferase 17 U/L (12-78); Albumin/Globulin Ratio 1.4 (1.1-1.8); Alkaline Phosphatase 95 U/L (38-126); Anion Gap 9.8 mEq/L (5-15); Aspartate Amino Transferase 27 U/L (17-59); Bilirubin,Total 0.8 mg/dl (0.2-1.3); Blood Urea Nitrogen 24 mg/dl (9-20); Calcium 9.5 mg/dl (8.4-10.2); Carbon Dioxide 32 mmol/L (22.0-30.0); Chloride 104 mmol/L (98-107); Estimated Glomerular Filt Rate 92 ml/min (>60); GFR (African American) 112 ML/MIN (>60); Globulin 2.9 g/dL (1.3-3.2); Glucose 102 mg/dl (74-100); Potassium 5.8 mmoL/L (3.5-5.1); Sodium 140 mmol/L (136-145); Total Protein,Serum 6.9 g/dl (6.3-8.2)
== END ==
PROVIDERS: PCP Family Medicine; Visit Provider Specialist
DX: S83.241A Other tear of medial meniscus, current injury, right knee, initial encounter (principal)
CPT/HCPCS: 36415; 80053

== ENCOUNTER → 2023-07-30 09:32 | Outpatient (POV) | payer MEDICARE, SELFPAY ==
[2023-07-30 09:54] VITALS: BP 118/80; PULSE 86; RESP 18; O2SAT 96; BMI 20.3
--- NOTE | 2023-07-30 10:17 | A.OFFVIS_ITS ---
[facility] Pain Management SOAP Note Subjective:: Patient is a pleasant 83-year-old male who presents today for follow-up. We are currently treating the patient for degenerative disc disease of lumbar spine with lumbar radiculopathy symptoms, chronic sacroiliitis, bilateral osteoarthritis knees, status post excision of soft tissue carcinoma. Today the patient rates his pain an 8 out of 10. Patient states he has gotten pain in his right knee as well as his low back along his hips. 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 Patient states he did have to have 30 in total and denies having to have any chemotherapy. He states he is scheduled to go for follow-ups every 3 months and have imaging. Patient does see a oncologist from [facility]. Patient does state that his knee and back have started interfering with his ability to perform activities of daily living such as cooking and cleaning. He is interested in injection therapy. Patient states his back is worse than his knee and would like to restart with that first. He is prescribed gabapentin 300 mg 6 times a day from an outside provider. Patient had previously had to right genicular nerve blocks that did provide upwards of 80% relief. His Arden has been reviewed and is appropriate. Review of Systems: General: No recent weight changes, no fever, no sleep disturbances Respiratory: No cough, no shortness of air, no recurring pulmonary infections Cardiovascular/peripheral vascular: No chest pain, no palpitations, no edema, no shortness of breath Gastrointestinal: No new onset incontinence, normal bowel movements reported Genitourinary: No new onset incontinence Musculoskeletal: Low back pain, bilateral hip pain Psychiatric: [Normal mood/affect] Neurological: [Denies weakness in extremities], [denies balance issues] Objective:: Physical Exam: General: Alert and oriented x3, no acute distress, pleasant and cooperative Lungs: Respirations even and unlabored, symmetrical chest expansion Eyes: PERRL Musculoskeletal: Flexion and extension of lumbar [spine] somewhat guarded secondary to pain, [antalgic gait noted] point tenderness along bilateral SIs with positive bilateral Silvia's, Brandi's, Gaenslen's, compression and distraction exam Neurological: Speech clear, no gross sensory deficit Assessment:: Degenerative disc disease of lumbar spine with lumbar radiculopathy symptoms, chronic sacroiliitis, bilateral osteoarthritis knees, status post excision of soft tissue carcinoma Plan:: Patient did have limited range of motion of his lumbar spine during today's visit along with bilateral SI point tenderness and positive bilateral Silvia's, Brandi's, Gaenslen's, compression and distraction exam. I have discussed with the patient that he may benefit from bilateral SI injections. Risk and benefits were discussed with the patient and I have explained to him due to his recent radiation and Cancer treatment that we will contact his physician at and confirm that there are no contraindications regarding these injections. Patient will be tentatively scheduled for bilateral SI injections. Patient has been instructed to contact the clinic with any concerns before the next appointment. Dr. Jimenez has reviewed this note and agrees with this plan of care. This note was dictated using voice recognition software and make contain errors or omissions. [facility] Disclaimer: The information contained in this section may have been updated after the patient was seen, as this information can be updated by other users. Medical History (Updated 05/04/23 @ 12:20 by Loraine Santos MD) Colon cancer CVA (cerebrovascular accident) HTN (hypertension) Seizure disorder Stroke Tremor Surgical History History of aortic valve replacement History of cholecystectomy History of colon resection History of colonoscopy History of heart surgery Family History Other Cancer Heart attack Social History Smoking Status: Never smoker second hand exposure: No alcohol intake: former substance use type: denies use current occupational status: retired Travel in the last 8 weeks: None household members: spouse housing: house lives independently: No marital status: 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 occupational exposures/hazards: No caffeine: Yes
== END ==
LOC: SC.PAIN 09:33
PROVIDERS: PCP Family Medicine; Visit Provider Nurse Practitioner Family
DX: M51.16 Intervertebral disc disorders with radiculopathy, lumbar region (principal); M46.1 Sacroiliitis, not elsewhere classified; G89.29 Other chronic pain; M17.0 Bilateral primary osteoarthritis of knee
CPT/HCPCS: 99212; G0463

== ENCOUNTER 2023-08-06 04:07 | Emergency (ER) | payer MEDICARE, SELFPAY ==
[2023-08-06] VITALS (9 sets, daily range): BP systolic 149–190; BP diastolic 84–100; PULSE 78–88; RESP 18–20; TEMP 36.6–37.1; O2SAT 95–97; BMI 18.5
--- NOTE | 2023-08-06 04:18 | PC.NURSE ---
in room talking with patent at this time.
--- NOTE | 2023-08-06 04:25 | CT_ITS ---
PROCEDURE INFORMATION: Exam: CT Abdomen And Pelvis With Contrast Exam date and time: 08/06/2023 5:30 AM Age: 83 years old Clinical indication: Abdominal pain; Additional info: N/v, abd pain, distant HX colon cancer TECHNIQUE: Imaging protocol: Computed tomography of the abdomen and pelvis with contrast. Radiation optimization: All CT scans at this facility use at least one of these dose optimization techniques: automated exposure control; mA and/or kV adjustment per patient size (includes targeted exams where dose is matched to clinical indication); or iterative reconstruction. Contrast material: ISOVUE; Contrast volume: 75 ml; Contrast route: IV; COMPARISON: CT PELVIS WO/W CON 12/15/2022 1:14 PM FINDINGS: Lungs: There is subsegmental atelectasis noted at the lung bases. Liver: Vague subcapsular non masslike enhancement is noted in the right hepatic lobe, likely representing perfusion abnormalities. Gallbladder and bile ducts: Surgical clips are noted in the gallbladder fossa compatible with prior cholecystectomy. Pancreas: Normal. No ductal dilation. Spleen: Normal. No splenomegaly. Adrenal glands: Normal. No mass. Kidneys and ureters: The kidneys enhance symmetrically there is no hydronephrosis. At the lower pole of the left kidney there is a 7 mm cyst unchanged from the prior study. Stomach and bowel: Unremarkable. No obstruction. No mucosal thickening. Appendix: No evidence of appendicitis. Intraperitoneal space: Unremarkable. No free air. No significant fluid collection. Vasculature: There is ectasia of the infrarenal abdominal aorta measuring up to 2.3 cm in maximum short axis dimension with heavy mural calcification. Annual aortic ultrasound is suggested to follow. Lymph nodes: Unremarkable. No enlarged lymph nodes. Urinary bladder: The urinary bladder is moderately distended with small diverticula anteriorly and mural trabeculation and possible thickening. There is no significant change from the prior study. Please correlate with cystoscopy. Reproductive: Unremarkable as visualized. Bones/joints: The bones are osteopenic with degenerative change and grade 1 L4-L5 spondylolisthesis. The patient appears to have undergone left sacroiliac fusion. Soft tissues: Unremarkable. IMPRESSION: No acute intra-abdominal process. Postsurgical change. Annual aortic ultrasound is suggested to follow infrarenal abdominal aortic ectasia. Tiny renal cyst for which no further imaging follow-up is necessary. Vague foci of subcapsular enhancement in the liver may represent perfusion abnormalities. Suggest MRI of the abdomen with and without intravenous contrast to further assess.
--- NOTE | 2023-08-06 04:29 | HMH.EDGENADL ---
Discharge Plan Disposition Patient Disposition: Home, Self-Care Prescriptions Prescriptions: New promethazine 25 mg tablet 25 mg PO Q6H PRN (Reason: nausea and vomiting) Qty: 20 0RF No Action lisinopril 10 mg tablet 10 mg PO DAILY amlodipine 5 mg tablet 5 mg PO DAILY metoprolol succinate 25 mg tablet extended release 24 hr 25 mg PO DAILY lidocaine HCl 10 mg/mL (1 %) solution 10 mg IJ ONCE Qty: 4 0RF silver sulfadiazine [SSD] 1 % cream 1 applic topical BID levofloxacin 750 mg tablet 750 mg PO DAILY Patient Comments: 10 days duloxetine 60 mg capsule,delayed release(DR/EC) 60 mg PO BID Qty: 60 5RF gabapentin 300 mg capsule 900 mg PO BID Qty: 180 5RF atorvastatin 40 MG tablet 40 mg PO DAILY omeprazole magnesium 20 mg tablet,delayed release (DR/EC) 40 mg PO DAILY Qty: 0 0RF Referrals Follow up/Referrals: Beltran Batista MD [Primary Care Provider] - See instructions Activity Restrictions/Add. Instructions Additional Instructions/Restrictions: Please follow-up with your primary care provider. Please return to the emergency department if you develop any new or worsening symptoms or become concerned for your health. Please take Phenergan as needed for nausea and vomiting. There was a nonspecific abnormality noted on the CT scan of your liver. Please follow-up to have an MRI of your liver done. This can be arranged to your primary care doctor. They can also arrange for you to have yearly screening ultrasounds of your aorta. 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 tolerance. Patient has been having some diarrhea, normal gas output. No urinary symptoms. No reported fever at home. Related Data Home Medications Medication Instructions Recorded Confirmed atorvastatin 40 mg tablet 40 mg PO DAILY Cholesterol 02/22/19 08/11/23 lisinopril 10 mg tablet 10 mg PO DAILY Hypertension 02/20/20 08/11/23 amlodipine 5 mg tablet 5 mg PO DAILY Hypertension 10/25/20 08/11/23 metoprolol succinate 25 mg 25 mg PO DAILY Hypertension 05/14/21 08/11/23 tablet,extended release 24 hr levofloxacin 750 mg tablet 750 mg PO DAILY 08/11/23 08/11/23 silver sulfadiazine 1 % topical 1 applic topical BID 08/11/23 08/11/23 cream (SSD) Previous Rx's Medication Instructions Recorded omeprazole magnesium 20 mg 40 mg PO DAILY GERD ##0 05/25/21 tablet,delayed release promethazine 25 mg tablet 25 mg PO Q6H PRN nausea and 08/06/23 vomiting #20 tabs duloxetine 60 mg capsule,delayed 60 mg PO BID #60 caps 08/11/23 release gabapentin 300 mg capsule 900 mg PO BID Severe neuropathy 08/11/23 #180 caps Allergies Allergy/AdvReac Type Severity Reaction Status Date / Time No Known Allergies Allergy Verified 08/11/23 16:07 [facility] Disclaimer: The information contained in this section may have been updated after the patient was seen, as this information can be updated by other users. 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 Stroke Tremor Surgical History History of aortic valve replacement History of cholecystectomy History of colon resection History of colonoscopy History of heart surgery Family History Other Cancer Heart attack Social History Smoking Status: Never smoker second hand exposure: No alcohol intake: former substance use type: denies use current occupational status: retired Travel in the last 8 weeks: None household members: spouse housing: house lives independently: No marital status: 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 occupational exposures/hazards: No caffeine: Yes ROS Obtained: Yes All systems reviewed & no additional complaints except as documented Physical Exam General General appearance: alert Comment: Uncomfortable appearing Head Head exam: atraumatic and normocephalic Eye Eye exam: Present normal appearance, PERRL and EOMI ENT ENT exam: Present normal oropharynx and normal external ear exam Neck Neck exam: Present normal inspection and full ROM Chest Chest inspection: Present normal inspection and symmetric chest wall rise; Absent tenderness Respiratory Respiratory exam: Present normal lung sounds bilaterally; Absent respiratory distress Cardiovascular Cardiovascular exam: Present regular rate and normal rhythm Abdominal Exam Abdominal exam: Present soft and tenderness; Absent distention or guarding Extremities Exam Extremities exam: Present normal inspection; Absent edema or joint swelling Back Exam Back exam: Present other (Marked erythema over the back in the area of patient's radiation treatments, no evidence of cellulitis or underlying abscess.) Neurological Exam Neurological exam: Present alert and oriented X3; Absent motor sensory deficit Psychiatric Psychiatric exam: Present normal affect and normal mood Skin Skin exam: Present warm, dry and normal color Lymphatic Lymphatic Findings: no adenopathy Medical Decision Making Medical Records Medical records reviewed: Yes I reviewed the patient's medical records. [place] Inquiry Pt receiving controlled substance: No [place] was queried for this patient: No Vital Signs: 08/06/23 04:10 08/06/23 04:25 08/06/23 04:30 Temperature 98.7 F Temperature Source Tympanic Pulse Rate 87 88 Pulse Rate [Left] 84 Respiratory Rate 20 Blood Pressure 190/100 H 163/99 H Blood Pressure [Right Arm] 163/99 H Blood Pressure Mean Blood Pressure Mean [Right Arm] 120 Blood Pressure Source Blood Pressure Source [Right Arm] Automatic Cuff Blood Pressure Position Blood Pressure Position [Right Arm] Supine 02 Sat by Pulse Oximetry 97 97 97 Oxygen Delivery Method Room Air 08/06/23 05:00 08/06/23 06:00 08/06/23 06:30 Temperature Temperature Source Pulse Rate 79 78 83 Pulse Rate [Left] Respiratory Rate Blood Pressure 172/97 H 167/91 H 150/90 H Blood Pressure [Right Arm] Blood Pressure Mean Blood Pressure Mean [Right Arm] Blood Pressure Source Blood Pressure Source [Right Arm] Blood Pressure Position Blood Pressure Position [Right Arm] 02 Sat by Pulse Oximetry 96 96 97 Oxygen Delivery Method 08/06/23 06:38 08/06/23 07:46 08/06/23 07:30 Temperature 97.9 F Temperature Source Oral Pulse Rate 83 80 82 Pulse Rate [Left] Respiratory Rate 18 Blood Pressure 154/90 H 149/84 H 149/84 H Blood Pressure [Right Arm] Blood Pressure Mean 116 Blood Pressure Mean [Right Arm] Blood Pressure Source Automatic Cuff Blood Pressure Source [Right Arm] Blood Pressure Position Sitting Blood Pressure Position [Right Arm] 02 Sat by Pulse Oximetry 95 96 Oxygen Delivery Method Room Air Room Air Room Air Lab Data Lab results reviewed: Yes I reviewed the patient's lab results. Lab Results 08/06/23 04:15: WBC 4.6 L, RBC 5.26, Hgb 16.4, Hct 48.4, MCV 92.0, MCH 31.1, MCHC 33.8, RDW 14.0, Plt Count 162, MPV 9.3, Neut % (Auto) 77.0, Lymph % (Auto) 11.3, [place] % (Auto) 11.3 H, Eos % (Auto) 0.1, Baso % (Auto) 0.4, Neut # (Auto) 3.6, Lymph # (Auto) 0.5 L, [place] # (Auto) 0.5, Eos # (Auto) 0.0, Baso # (Auto) 0.0, Sodium 138, Potassium 4.5, Chloride 98, Carbon Dioxide 30, Anion Gap 14.5, BUN 31 H, Creatinine 0.70, Estimated Creat Clear 43, Estimated GFR 107, Est GFR ( Amer) 130, Glucose 159 H, Lactate 2.5 H, Calcium 9.3, Magnesium 2.0, Total Bilirubin 1.1, AST 48, ALT 32, Alkaline Phosphatase 104, Total Protein 7.9, Albumin 4.5, Globulin 3.4 H, Albumin/Globulin Ratio 1.3, Lipase 74 08/06/23 04:31: SARS-CoV-2 (PCR) Detected A, Influenza A Untype (PCR) Not detected, Influenza Type B (PCR) Not detected 08/06/23 04:15 08/06/23 04:15 Orders (Tests/Meds): ED MEDICATIONS Discontinued Medications Generic Name Dose Route Start Last Admin Trade Name Freq PRN Reason Stop Dose Admin Acetaminophen 1,000 mg 08/06/23 04:25 08/06/23 04:43 Acetaminophen 500mg Tab PO 08/06/23 04:26 Not Given ONCE ONE Acetaminophen 1,000 mg 08/06/23 04:39 08/06/23 04:43 Acetaminophen 1,000mg/100ml Vial IV 08/06/23 04:40 1,000 mg ONCE ONE Administration Belladonna Alkaloids 60 ml 08/06/23 06:32 08/06/23 06:36 Belladonna Alkaloids 60 Ml Ml PO 08/06/23 06:33 60 ml ONCE ONE Administration Sodium Chloride 1,000 mls @ 999 mls/hr 08/06/23 04:30 08/06/23 04:42 Sod Chlor 0.9% 1000ml Bag IV 08/06/23 05:30 999 mls/hr .Q1H1M BRIDGETT Administration Lactated Ringer's 1,000 mls @ 999 mls/hr 08/06/23 06:45 08/06/23 06:36 Lactated Ringer's 1000 Ml Bag IV 08/06/23 07:45 999 mls/hr .Q1H1M BRIDGETT Administration Iopamidol 75 ml 08/06/23 05:48 08/06/23 05:49 Iopamidol-370 (76%);100ml Bottle IV 08/06/23 05:49 75 ml ONCE ONE Administration Morphine Sulfate 4 mg 08/06/23 04:27 08/06/23 04:42 Morphine 4mg/Ml Syringe IV 08/06/23 04:28 4 mg ONCE ONE Administration Ondansetron HCl 4 mg 08/06/23 04:25 08/06/23 04:42 Ondansetron 4mg/2ml Vial IV 08/06/23 04:26 4 mg ONCE ONE Administration Promethazine HCl 25 mg 08/06/23 06:19 08/06/23 06:27 Promethazine Hcl 25mg/Ml 1ml Vial IV 08/06/23 06:20 25 mg ONCE ONE Administration Sodium Chloride 10 ml 08/06/23 05:48 08/06/23 05:49 Sodium Chloride 0.9% 10ml Syr (Rad Only) IV 09/05/23 05:47 10 ml NEEDED PRN Administration Maintain IV Site Sodium Chloride 25 ml 08/06/23 06:19 08/06/23 06:33 Sodium Chloride 0.9% 25ml Bag IV 08/06/23 06:20 25 ml ONCE ONE Administration ORDERS Category Date Time Status CT abdomen pelvis w con Stat Cat Scan 08/06/23 04:25 Completed CBC w/Auto Diff [Complete Blood Count Auto Diff] Stat Lab 08/06/23 04:15 Completed CMP [Comprehensive Metabolic Panel] Stat Lab 08/06/23 04:15 Completed Lactic Acid Stat Lab 08/06/23 04:15 Completed Lipase Stat Lab 08/06/23 04:15 Completed Magnesium Stat Lab 08/06/23 04:15 Completed Rapid PCR Covid and Flu A/B Stat Lab 08/06/23 04:31 Completed Medical Decision Narrative: 83-year-old male with distant history of colon cancer status post resection, recent history of sarcoma status post radiation, history of multiple strokes after aortic valve replacement, presents with URI symptoms for the last several days with worsening abdominal pain nausea and decreased p.o. tolerance. History was obtained via conversation with patient, patient's . On arrival, patient is [afebrile, hemodynamically stable, satting appropriately, alert, oriented x4, GCS 15], moving all extremities spontaneously. Full physical exam performed and significant for postradiation changes in the back, mild to moderate diffuse abdominal tenderness Differential includes but is not limited to COVID, flu, gastroenteritis, dehydration, intra-abdominal pathology. Patient was given 2 L fluid bolus, IV Zofran, IV Phenergan, IV morphine, IV Tylenol, GI cocktail during ED stay for symptomatic management and correction of underlying abnormalities. Workup initiated including CBC CMP lipase lactate CT abdomen pelvis with IV contrast. On re-evaluation, patient [remains afebrile, HD stable.] Laboratory workup independently interpreted by me and significant for mildly elevated lactate at 2.5, mildly elevated BUN, renal function at baseline, no significant electrolyte derangement. mild lymphocytopenia noted. Imaging independently interpreted by me and significant for nonspecific abnormality in the liver which will require MRI follow-up. Also shows mild ectasia of the infrarenal aorta. See radiology read for full review of final results. Given patient history, exam and workup, patient's presentation most likely represents acute COVID infection and mild dehydration. Extensive discussion had with patient and family regarding symptoms and CT findings. Will discharge with prescription for Phenergan. They will follow-up with PCP. Return precautions given. Procedures Risk/Benefits of Procedure(s) Were Explained: Yes Critical Care Critical Care Time Critical Care Time: No
[2023-08-06 04:40] LABS: Basophils % 0.4 % (0.1-2.0); Eosinophils % 0.1 % (0.1-12.0); Hematocrit 48.4 % (42.0-52.0); Hemoglobin 16.4 g/dL (14.1-18.0); Lymphocytes # 0.5 K/mm3 (0.7-4.5); Lymphocytes % 11.3 % (10-50); Mean Corpuscular HGB Conc 33.8 g/dL (31.8-35.4); Mean Corpuscular Hemoglobin 31.1 pg (27.0-31.2); Mean Platelet Volume 9.3 fl (7.4-10.4); Monocytes # 0.5 K/mm3 (0.1-1.0); Monocytes % 11.3 % (1.7-9.3); Neutrophils # 3.6 K/mm3 (1.8-7.8); Platelet Count 162 K/mm3 (142-424); Red Blood Count 5.26 M/mm3 (4.60-6.20); White Blood Count 4.6 K/mm3 (4.8-10.8)
[2023-08-06 04:40] LABS: Influenza A, PCR Not Detected (NotDetected); Influenza B, PCR Not Detected (NotDetected)
[2023-08-06] MEDS: 0.9 % SODIUM CHLORIDE 1000ML 1,000 ML 999 ML IV (04:42)
[2023-08-06] MEDS: MORPHINE 4MG/ML SYRINGE 4 MG IV (04:42)
[2023-08-06] MEDS: ONDANSETRON 4MG/2ML VIAL 4 MG IV (04:42)
[2023-08-06] MEDS: ACETAMINOPHEN 1,000MG/100ML VIAL 1000 MG IV (04:43)
[2023-08-06 04:44] LABS: Chloride 98 mmol/L (98-107); Potassium 4.5 mmoL/L (3.5-5.1); Sodium 138 mmol/L (136-145)
[2023-08-06 04:47] LABS: Alanine Aminotransferase 32 U/L (12-78); Albumin Level 4.5 g/dl (3.5-5.0); Albumin/Globulin Ratio 1.3 (1.1-1.8); Alkaline Phosphatase 104 U/L (38-126); Anion Gap 14.5 mEq/L (5-15); Aspartate Amino Transferase 48 U/L (17-59); Bilirubin,Total 1.1 mg/dl (0.2-1.3); Blood Urea Nitrogen 31 mg/dl (9-20); Calcium 9.3 mg/dl (8.4-10.2); Carbon Dioxide 30 mmol/L (22.0-30.0); Creatinine Clearance Estimated 43 mL/min (50-200); Estimated Glomerular Filt Rate 107 ml/min (>60); GFR (African American) 130 ML/MIN (>60); Globulin 3.4 g/dL (1.3-3.2); Glucose 159 mg/dl (74-100); Lipase 74 U/L (23-300); Total Protein,Serum 7.9 g/dl (6.3-8.2)
[2023-08-06 04:50] LABS: Lactic Acid 2.5 mmol/L (0.7-2.1)
[2023-08-06 05:03] LABS: Coronavirus 19, PCR Detected (NotDetected)
--- NOTE | 2023-08-06 05:18 | PC.NURSE ---
in room talking with patient at this time.
--- NOTE | 2023-08-06 05:25 | PC.NURSE ---
patient gone to CT at this time.
--- NOTE | 2023-08-06 05:42 | PC.NURSE ---
patient back in room from CT at this time.
[2023-08-06] MEDS: SODIUM CHLORIDE 0.9% 10ML SYR (RAD ONLY) 10 ML IV (05:49)
[2023-08-06] MEDS: IOPAMIDOL-370 (76%);100ML BOTTLE 75 ML IV (05:49)
[2023-08-06] MEDS: PROMETHAZINE HCL 25MG/ML 1ML VIAL 25 MG IV (06:27)
[2023-08-06] MEDS: SODIUM CHLORIDE 0.9% 25ML BAG 25 ML IV (06:33)
[2023-08-06] MEDS: LACTATED RINGERS 1000ML 1,000 ML 999 ML IV (06:36)
[2023-08-06] MEDS: BELLADONNA ALKALOIDS 60 ML ML PO (06:36)
--- NOTE | 2023-08-06 07:44 | PC.NURSE ---
rounded on pt, 2nd liter bolus complete. pt ready for discharge
[2023-08-06 08:38] LABS: Reflex Lactic Add Lactic Reflex
== END 2023-08-06 08:10 | disposition home or self-care (01) ==
PROVIDERS: Emergency Provider Emergency Medicine; PCP Family Medicine
DX: U07.1 COVID-19 (principal); E86.0 Dehydration; R11.2 Nausea with vomiting, unspecified; R10.9 Unspecified abdominal pain; G40.909 Epilepsy, unspecified, not intractable, without status epilepticus; I10 Essential (primary) hypertension; Z86.73 Personal history of transient ischemic attack (TIA), and cerebral infarction without residual deficits
CPT/HCPCS: 74177; 80053; 83605; 83690; 83735; 85025; 87636; 96361; 96374; 96375; 99285; J0131; J2405; Q9967

== ENCOUNTER 2023-10-23 12:06 | Day surgery (SDC) | payer MEDICARE, SELFPAY ==
[2023-10-21 09:11] VITALS: BMI 19.8
[2023-10-23 12:30] VITALS: BP 129/39; PULSE 76; RESP 18; TEMP 36.4; O2SAT 99
[2023-10-23] MEDS: LACTATED RINGERS 1000ML 1,000 ML 25 ML IV (12:30)
--- NOTE | 2023-10-23 15:33 | P.PCN_ITS ---
Procedure: Date: 10/23/23 Patient Date of :: 1940 Procedure Performed:: Flexible sigmoidoscopy with sequential dilatation of rectal stricture ultimately to approximately 13.5 mm Indications:: Patient presents for sigmoidoscopy. He is an 83-year-old male who is well-known to me. 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 He has history of previous stroke, hypertension, seizure, aortic valve replacement. He has had problems with recurrent rectal stricture for which I have dilated on occasion. I had him see colorectal surgery in [place] for possible definitive care. As opposed to extensive surgical resection of this area he had elected to continue with possible ongoing serial dilatation. I had last seen him in the office on 12/23/2022. Plan was for follow-up flexible sigmoidoscopy with dilatation. He was noted to have a posterior right sacroiliac mass at that time and he was referred. He was ultimately diagnosed with sarcoma. He had seen Dr. Nadja Sanders in January 2023. Patient apparently has had radiation to this area. I have performed numerous dilatations using pneumatic dilator with flex sigmoidoscopy on 11/11/2021 (16.5mm), 01/03/2022 (20mm), 03/14/2022 (20mm), 07/04/2022 (18mm), and 10/10/2022 (20mm). I had last seen him in the office on 12/23/2022 and was planning a flexible sigmoidoscopy with dilatation. Patient was then diagnosed with sarcoma for which he underwent surgery and radiation. He recently had a stay at [facility] for orthopedic injuries. He describes recent problems with 4 to 5 days of obstipation followed by diarrhea. He states that following these days of obstipation he often moves his bowels about 15-20 times a day. Performing Provider:: Christiano Rm MD Referring Provider:: Brayan Batista MD Sedation:: MAC sedation Procedure:: Patient history was obtained and appropriate physical examination was performed. Patient's medications and allergies were reviewed. Informed consent was obtained after explaining the benefits, alternatives, and risks of the procedure including, but not limited to, bleeding, perforation, missed lesions, and adverse reaction to anesthesia medications. Patient was transported to endoscopy procedure room. Patient was connected to monitoring devices. Throughout the procedure the patient's blood pressure, pulse, and oxygen saturations were monitored continuously. Patient identification and planned procedure were verified by the staff. Patient was positioned in lateral decubitus position. Digital anorectal exam was performed. Olympus endoscope was inserted via the anus. There was some liquid stool within the rectum which was irrigated and suctioned free. Stricture was encountered. There was actually no luminal diameter identified. 6 mm dilation pneumatic balloon dilator was carefully inserted and manipulated through, the ultimately identified, virtually nonexistent lumen. The area was dilated initially to 6 mm sequentially to 7 and then 8 mm. At this time the endoscope was able to be advanced through the stricture and to the sigmoid colon where there was liquid stool. Irrigation was performed. The 8 to 10 mm elation balloon dilator was then inserted through the endoscope and stricture was sequentially dilated 8 mm to 9 mm and then to 10 mm. This dilator was then replaced with the 10 to 12 mm elation balloon dilator and the stricture was sequentially dilated ultimately to 12 mm. This was removed and replaced with the 12 to 15 mm dilator. Initially the stricture was dilated to 12 mm and then to 13.5 mm. It was carefully dilated beyond 13.5 but based on the pressure less than 8 kunal likely not to 15 mm. It was felt unsafe to dilate and a higher. B alloon dilator was removed. Endoscope was advanced to the proximal sigmoid colon. There is liquid stool. This was thoroughly irrigated. Endoscope was then withdrawn. . Findings:: Tight rectal stricture Recommendations:: Likely plan for repeat flexible sigmoidoscopy with possible progressive dilat ation in 6 or 8 weeks. Complications:: None immediately apparent Estimated blood obtained (mL): 1 Colonoscopy Component Colonoscopy Component Was a colonoscopy performed during today's procedure?: No
[2023-10-23 16:15] VITALS: BP 111/72; PULSE 61; RESP 16; TEMP 36.1; O2SAT 98
--- NOTE | 2023-10-23 16:19 | P.PNANES_ITS ---
[facility] Disclaimer: The information contained in this section may have been updated after the patient was seen, as this information can be updated by other users. 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 Stroke Tremor Surgical History History of aortic valve replacement History of cholecystectomy History of colon resection History of colonoscopy History of heart surgery Family History Other Cancer Heart attack Social History Smoking Status: Never smoker second hand exposure: No alcohol intake: never substance use type: denies use current occupational status: retired Travel in the last 8 weeks: None household members: spouse housing: house lives independently: No marital status: 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 occupational exposures/hazards: No caffeine: Yes [facility] Anesthesia Checklist Patient Identification Patient Identification: Arm Band, Family and Verbal (Name & ) Structural Data Admitted From: Home Planned Operative Procedure/s: Flex sig w/dilation Consent for Planned Operative Procedure(s) Verified: Yes Verified Documents: Surgical Consent and History and Physical NPO Status Verified Time NPO: 18:00 Chart Verification Results Verified: CBC, BMP, ECG and Chest Xray Additional verifications Patient : No Anesthesia Reactions: No Hx Blood Transfusions: No Blood Transfusion Reaction: No Cardiovascular Assessment Heart Sounds: S1 & S2 Pulse Rhythm: Irregular Peripheral Edema: No Airway Assessment Mallampati Score:: Class I C-Spine Mobility Assessed: Yes (FROM) TMJ Mobility Assessed: Yes Dentition: Poor Dentition (Nothing loose per pt.) Neurological Assessment Level of Consciousness: Awake, Alert, Appropriate and Follows Commands Hx Seizures: Yes Numbness or tingling in extremities: No Anesthesia Plan Anesthesia Risk discussed: Yes Anesthesia Plan: Verified ASA Class: III Anesthesia Type: MAC
--- NOTE | 2023-10-23 16:21 | EXP.ANES.I ---
[facility] Anesthesia Record Part I Anesthesia Record I Intake, IV Amount: 500 Hydration: Adequate Estimated blood loss (mL): 5 Urine output (mL): 0 Blood Products used (#): none Blood Pressure: 111/72 SaO2: 99 Pulse Rate: 61 Airway Patency: Patent Respiratory Rate: 14 Temperature: 97.4 F Patient is:: Drowsy and Stable Stable to PACU at:: 16:20
[2023-10-23 16:22] VITALS: BP 111/72; PULSE 61; RESP 14; TEMP 36.3; O2SAT 99
[2023-10-23 16:25] VITALS: BP 110/73; PULSE 61; RESP 16; O2SAT 99
[2023-10-23 16:35] VITALS: BP 116/78; PULSE 78; RESP 16; O2SAT 99
[2023-10-23 16:45] VITALS: BP 119/70; PULSE 70; RESP 15; O2SAT 99
== END 2023-10-23 16:50 | disposition home or self-care (01) ==
PROVIDERS: PCP Family Medicine; Visit Provider Surgery
PROC: 0DJD8ZZ Inspection of Lower Intestinal Tract, Via Natural or Artificial Opening Endoscopic (ICD-10-PCS; CPT 45330; principal; 2023-10-23 13:00)
DX: K59.00 Constipation, unspecified (principal); K62.4 Stenosis of anus and rectum
CPT/HCPCS: 45340; C1726

== ENCOUNTER 2023-12-04 11:30 | Day surgery (SDC) | payer MEDICARE, SELFPAY ==
[2023-12-03 09:18] VITALS: BMI 19.0
[2023-12-04 11:51] VITALS: BP 131/87; PULSE 80; RESP 18; TEMP 36.2; O2SAT 96
[2023-12-04] MEDS: LACTATED RINGERS 1000ML 1,000 ML 25 ML IV (12:10)
--- NOTE | 2023-12-04 12:47 | [facility].SCOPE ---
Procedure: Date: 12/04/23 Patient Date of :: 1940 Procedure Performed:: Flexible sigmoidoscopy with sequential dilatation of rectal stricture Indications:: Patient presents for repeat sigmoidoscopy and possible dilatation. He is an 83-year-old male whom had undergone low anterior resection by Dr. Henrik Polanco at [facility] in November 1997. In October 2021 he was admitted with possible bowel obstruction and had findings consistent with partial colon obstruction. This was managed nonoperatively. However, he has required multiple sigmoidoscopy with dilatation of recurrent benign stricture. He underwent colonoscopy on 11/11/2021 which revealed severe anastomotic stricture which was dilated to 16.5 mm. He had undergone biopsies which were benign. Flexible sigmoidoscopy on 01/03/22 with dilatation to 20 mm. Sigmoidoscopy with dilatation was performed on 03/14/2022 with repeat dilatation to 20 mm. He was dilated on 07/04/22 to 18 mm. 10/10/2022 he was dilated to 20 mm. At one point patient was referred to see colorectal surgery in [place] regarding options. It was felt that any surgical intervention would result in a permanent colostomy. It was also felt that he would not be a good candidate for a dilatation with stent placement. It was recommended he undergo serial dilatation at this facility. 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 As he was undergoing treatment for this there was some delay in a repeat sigmoidoscopy. He developed symptoms of significant partial distal bowel obstruction. He ultimately underwent a repeat sigmoidoscopy on 10/23/2023. He was found to have essentially obstructed stricture at that time with no luminal diameter as an extremely high-grade partial distal colon obstruction. This required dilatation initially beginning with 6 mm balloon. It was sequentially ultimately dilated to 13.5mm. It was felt unsafe to dilate beyond this. He has had some improvement in his symptoms. Plan was for early follow-up sigmoidoscopy. . Performing Provider:: Christiano Rm MD Referring Provider:: Brayan Batista MD Sedation:: MAC sedation Procedure:: Patient history was obtained and appropriate physical examination was performed. Patient's medications and allergies were reviewed. Informed consent was obtained after explaining the benefits, alternatives, and risks of the procedure including, but not limited to, bleeding, perforation, missed lesions, and adverse reaction to anesthesia medications. Patient was transported to endoscopy procedure room. Patient was connected to monitoring devices. Throughout the procedure the patient's blood pressure, pulse, and oxygen saturations were monitored continuously. Patient identification and planned procedure were verified by the staff. Patient was positioned in lateral decubitus position. Digital anorectal exam was performed. Stricture was not palpable. Olympus endoscope was inserted via the anus. At approximately 16 or 17 cm from anal verge stricture was encountered. Initially there was no apparent luminal diameter. Consideration is being given for possible dilatation with guidewire. However ultimately lumen was identified and endoscope was actually able to be advanced beyond this stricture. The 8 to 10 mm elation balloon was inserted and the endoscope slowly withdrawn as the balloon was advanced so that the balloon was able to be placed within the stricture. It was sequentially dilated initially to 8 mm then 9 mm then 10 mm. Balloon was removed. Next the 10-12 pneumatic dilator with guidewire was inserted and the guidewire was advanced beyond the stricture. Balloon was then advanced over the guidewire to the stricture. Balloon was sequentially dilated to 10 mm then 11 mm then 12 mm. This was held for several minutes. Balloon was then deflated and the 12 to 15 mm pneumatic elation balloon dilator was inserted and carefully the pneumatic balloon was positioned at the level of the stricture. It was briefly dilated to 12 mm then to 13.5 and ultimately to 15 mm where it was held for several minutes. This balloon was then deflated and removed and replaced with the 15 to 18 mm pneumatic elation balloon dilator which was positioned within the stricture. It was briefly inflated to 15 mm then to 16.5 mm. 16.5 mm was held for several minutes to allow for slow dilatation. It was felt unsafe to dilate beyond 16.5 mm. Balloon was deflated and removed. Endoscope was able to be advanced to the distal sigmoid colon proximal to the stricture. There was good hemostasis. Endoscope was withdrawn. . Findings:: Severe stricture creating high-grade partial distal colorectal obstruction dilated beginning at 8 mm sequentially ultimately to 16.5 mm. Recommendations:: Recommend repeat early sigmoidoscopy with dilatation. I will see if once again patient would be candidate to be seen by gastroenterology for possible dilatation and stent placement. Complications:: None immediately apparent Estimated blood obtained (mL): 1 Colonoscopy Component Colonoscopy Component Was a colonoscopy performed during today's procedure?: No
--- NOTE | 2023-12-04 12:56 | P.PNANES_ITS ---
[facility] Disclaimer: The information contained in this section may have been updated after the patient was seen, as this information can be updated by other users. Medical History (Updated 12/04/23 @ 12:00 by Virginie Gama RN) History of gastroesophageal reflux (GERD) History of cataract Sarcoma Tremor Stroke Colon cancer Seizure disorder CVA (cerebrovascular accident) HTN (hypertension) Surgical History (Updated 12/04/23 @ 12:00 by Virginie Gama RN) History of cataract surgery History of open heart surgery History of aortic valve replacement History of heart surgery History of cholecystectomy History of colon resection History of colonoscopy Family History Other Cancer Heart attack Social History (Updated 12/04/23 @ 12:00 by Virginie Gmaa RN) Smoking Status: Never smoker second hand exposure: No alcohol intake: never substance use type: denies use current occupational status: retired Travel in the last 8 weeks: None household members: spouse housing: house lives independently: No marital status: 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 occupational exposures/hazards: No caffeine: Yes [facility] Anesthesia Checklist Patient Identification Patient Identification: Arm Band Structural Data Admitted From: Home Planned Operative Procedure/s: Flexible Sigmoidoscopy Consent for Planned Operative Procedure(s) Verified: Yes Verified Documents: Surgical Consent and History and Physical NPO Status Verified Time NPO: 00:00 Additional verifications Anesthesia Reactions: No Hx Blood Transfusions: No Blood Transfusion Reaction: No Airway Assessment Mallampati Score:: Class II C-Spine Mobility Assessed: Yes TMJ Mobility Assessed: Yes Dentition: Good Dentition Neurological Assessment Level of Consciousness: Awake, Alert and Appropriate Anesthesia Plan Anesthesia Risk discussed: Yes Anesthesia Plan: Verified ASA Class: III Anesthesia Type: MAC
[2023-12-04 13:08] VITALS: O2SAT 97
[2023-12-04 13:50] VITALS: BP 110/66; PULSE 76; RESP 16; O2SAT 100
[2023-12-04 14:00] VITALS: BP 126/80; PULSE 71; RESP 16; O2SAT 100
[2023-12-04 14:10] VITALS: BP 124/68; PULSE 71; RESP 18; O2SAT 99
[2023-12-04 14:16] VITALS: BP 126/69; PULSE 71; RESP 16; O2SAT 96
== END 2023-12-04 14:20 | disposition home or self-care (01) ==
LOC: OUTP 11:32
PROVIDERS: PCP Family Medicine; Visit Provider Surgery
PROC: 0DJD8ZZ Inspection of Lower Intestinal Tract, Via Natural or Artificial Opening Endoscopic (ICD-10-PCS; CPT 45330; principal; 2023-12-04 12:30)
DX: Z90.49 Acquired absence of other specified parts of digestive tract (principal); K56.600 Partial intestinal obstruction, unspecified as to cause; C41.9 Malignant neoplasm of bone and articular cartilage, unspecified
CPT/HCPCS: 45340; C1726

== ENCOUNTER 2024-01-01 10:55 | Emergency (ER) | payer MEDICARE, SELFPAY ==
[2024-01-01] VITALS (7 sets, daily range): BP systolic 135–170; BP diastolic 77–87; PULSE 60–73; RESP 18; TEMP 36.6–36.8; O2SAT 96–99; BMI 19.0
--- NOTE | 2024-01-01 11:04 | CT_ITS ---
FINAL REPORT CLINICAL HISTORY: Right-sided scalp numbness and popping sensation COMPARISON: 11/22/2021 FINDINGS: Axial images of the head were obtained without contrast. Coronal and sagittal reformatted images were also obtained. This study was performed with techniques to keep radiation doses as low as reasonably achievable (ALARA). Individualized dose reduction techniques using automated exposure control or adjustment of mA and/or kV according to the patient's size were employed. There is generalized moderate age-appropriate atrophy. Periventricular low-attenuation areas are seen consistent with moderate chronic ischemic changes. There is no evidence of intracranial hemorrhage or mass. There is no evidence of acute infarct. There is no evidence of shift of the midline structures. No skull abnormality is seen on the bone window images. There is encephalomalacia noted in the cerebral hemispheres bilaterally, more prominent on the left side than the right side, which is stable since the prior CT. IMPRESSION: Atrophy and moderate periventricular chronic ischemic changes. Bilateral areas of encephalomalacia are stable when compared to the prior CT of 2021. No acute intracranial abnormality identified. Reviewed, Interpreted and Dictated by Christiano Gurrola III, MD Transcribed by Rosalba Monsivais Authenticated and [facility]
--- NOTE | 2024-01-01 11:04 | CT_ITS ---
FINAL REPORT TECHNIQUE: Thin-section axial CT with IV contrast supplemented with multi planar reconstruction under CT angiogram protocol was performed of the neck. This study was performed technique to keep radiation doses as low as reasonably achievable, (ALARA). NASCET criteria was utilized during interpretation. CLINICAL HISTORY: Right-sided scalp numbness and popping sensation COMPARISON: None FINDINGS: Aortic arch: Arch shows no significant narrowing. Great vessel origins are widely patent. Right carotid: The right common carotid artery is unremarkable in appearance. There are calcifications in the right carotid bulb which do not produce stenosis. The right internal carotid artery is unremarkable. Left carotid: There is mild stenosis of the left common carotid artery, measuring less than 50% luminal diameter. There is mild calcified plaque at the bulb on the left side without evidence of stenosis. 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 There is retrograde flow from the right vertebral into the left vertebral intracranially, with retrograde filling of the left PICA. The right vertebral artery is normal in appearance. IMPRESSION: Mild stenosis of the left common carotid artery, with less than 50% luminal diameter stenosis. 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 The left PICA fills via retrograde flow from the right vertebral artery into the left vertebral artery. The right vertebral artery is normal in appearance. Reviewed, Interpreted and Dictated by Christiano Gurrola III, MD Transcribed by Rosalba Monsivais Authenticated and [facility]
--- NOTE | 2024-01-01 11:04 | CT_ITS ---
FINAL REPORT TECHNIQUE: Thin section axial CT with IV contrast supplemented with multiplanar reconstruction under CT angiogram protocol. 3-D reconstructions were performed. This study was performed with techniques to keep radiation doses as low as reasonably achievable (ALARA). Individualized dose reduction techniques using automated exposure control or adjustment of mA and/or kV according to the patient''s size were employed. CLINICAL HISTORY: Right-sided scalp numbness and popping sensation COMPARISON: None FINDINGS: There is retrograde flow from the right vertebral artery to the left vertebral artery to fill the posterior inferior cerebellar artery. The basilar and distal internal carotid arteries have an unremarkable appearance. No aneurysm is seen. Major intracranial vessels are patent without significant stenosis. IMPRESSION: Retrograde flow from the right vertebral artery to the left vertebral artery to fill the posterior inferior cerebellar artery. Reviewed, Interpreted and Dictated by Christiano Gurrola III, MD Transcribed by Rosalba Monsivais Authenticated and [facility]
[2024-01-01 11:18] LABS: Chloride 104 mmol/L (98-107)
[2024-01-01 11:19] LABS: Potassium 4.4 mmoL/L (3.5-5.1); Sodium 138 mmol/L (136-145)
--- NOTE | 2024-01-01 11:20 | ED_ITS ---
Discharge Plan Disposition Patient Disposition: Home, Self-Care Chief Complaint: Recheck/Abnormal Lab/Rx Prescriptions Prescriptions: No Action lisinopril 10 mg tablet 10 mg PO DAILY amlodipine 5 mg tablet 5 mg PO DAILY metoprolol succinate 25 mg tablet extended release 24 hr 25 mg PO DAILY lidocaine HCl 10 mg/mL (1 %) solution 10 mg IJ ONCE Qty: 4 0RF silver sulfadiazine [SSD] 1 % cream 1 applic topical BID duloxetine 60 mg capsule,delayed release(DR/EC) 60 mg PO BID Qty: 60 5RF gabapentin 300 mg capsule 900 mg PO BID Qty: 180 5RF atorvastatin 40 MG tablet 40 mg PO DAILY omeprazole magnesium 20 mg tablet,delayed release (DR/EC) 40 mg PO DAILY Qty: 0 0RF promethazine 25 mg tablet 25 mg PO Q6H PRN (Reason: nausea and vomiting) Qty: 20 0RF Referrals Follow up/Referrals: Beltran Batista MD [Primary Care Provider] - See instructions Activity Restrictions/Add. Instructions Additional Instructions/Restrictions: Follow-up with your family doctor regarding this visit to the emergency department. Continue medications as prescribed. Talk to family doctor about outpatient follow-up with neurology, if you do not already have a neurologist in mind that you follow-up with. Call your family doctor to establish care for this visit to the emergency department and schedule follow-up within 48 hours to ensure improvement. If you have any worsening of your condition or any other concerning signs or symptoms, return to the emergency department or your primary care doctor for further evaluation. Clinical Impressions Clinical Impression: Transient neurological symptoms, Occlusion of left vertebral artery Discharge ED Provider: Carlin Wynne General Adult HPI General Chief complaint: Recheck/Abnormal Lab/Rx Stated complaint: numbness inside R side of head Time Seen by Provider: 01/01/24 11:00 Mode of Arrival: Ambulatory Source of Information: Patient and Spouse Limitations: No Limitations Description of Symptoms (Recalled from ER Triage Doc. by RN): c/o of hearing a popping in the right side of his head which makes that area go numb. Pt states this happened one time last month and lasted for the day, this episode started at 1am and has not went away History of Present Illness HPI narrative: Please note that above description of symptoms, in this electronic medical record under categorization of recalled from ER triage doctor by RN are reflective of an initial nursing assessment, however, is not reflective of my full history and physical exam that was personally taken and clarified. Consequentially, this preceding description of symptoms, which may include the patient's categorized chief complaint in the EMR, do not reflect my personal clinical impression, and the ultimate description of history of present illness and patient stated complaints should be deferred to this section of the note. Unless stated otherwise or congruent with this section of the note, additional signs, symptoms, or incongruence should be interpreted as inaccurate with my clinical impression. Related Data Home Medications Medication Instructions Recorded Confirmed atorvastatin 40 mg tablet 40 mg PO DAILY Cholesterol 02/22/19 12/04/23 lisinopril 10 mg tablet 10 mg PO DAILY Hypertension 02/20/20 12/04/23 amlodipine 5 mg tablet 5 mg PO DAILY Hypertension 10/25/20 12/04/23 metoprolol succinate 25 mg 25 mg PO DAILY Hypertension 05/14/21 12/04/23 tablet,extended release 24 hr silver sulfadiazine 1 % topical 1 applic topical BID 08/11/23 12/04/23 cream (SSD) Previous Rx's Medication Instructions Recorded omeprazole magnesium 20 mg 40 mg (2 x 20 mg) PO DAILY GERD ##0 05/25/21 tablet,delayed release promethazine 25 mg tablet 25 mg PO Q6H PRN nausea and 08/06/23 vomiting #20 tabs duloxetine 60 mg capsule,delayed 60 mg PO BID #60 caps 08/11/23 release gabapentin 300 mg capsule 900 mg (3 x 300 mg) PO BID Severe 08/11/23 neuropathy #180 caps Allergies Allergy/AdvReac Type Severity Reaction Status Date / Time No Known Allergies Allergy Verified 12/04/23 11:46 [facility] Disclaimer: The information contained in this section may have been updated after the patient was seen, as this information can be updated by other users. Medical History (Updated 01/01/24 @ 13:28 by Carlin Wynne MD) History of gastroesophageal reflux (GERD) History of cataract Sarcoma Tremor Stroke Colon cancer Seizure disorder CVA (cerebrovascular accident) HTN (hypertension) Surgical History (Updated 12/04/23 @ 12:00 by Virginie Gama RN) History of cataract surgery History of open heart surgery History of aortic valve replacement History of heart surgery History of cholecystectomy History of colon resection History of colonoscopy Family History Other Cancer Heart attack Social History (Updated 12/04/23 @ 12:00 by Virginie Gama RN) Smoking Status: Never smoker second hand exposure: No alcohol intake: never substance use type: denies use current occupational status: retired Travel in the last 8 weeks: None household members: spouse housing: house lives independently: No marital status: 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 occupational exposures/hazards: No caffeine: Yes ROS Obtained: Yes All systems reviewed & no additional complaints except as documented Physical Exam General General appearance: alert and in no apparent distress Head Head exam: atraumatic, normocephalic and other (Subjective numbness posterolateral parietal scalp. Does not reach inferiorly toward occiput or neck, does not extend anteriorly beyond temporal region) Eye Eye exam: Present normal appearance, PERRL and EOMI ENT ENT exam: Present mucous membranes moist Neck Neck exam: Present normal inspection, full ROM and trachea midline Respiratory Respiratory exam: Absent respiratory distress, wheezes, stridor, accessory muscle use or prolonged expiratory phase Cardiovascular Cardiovascular exam: Present normal rhythm Abdominal Exam Abdominal exam: Present soft; Absent distention, tenderness, guarding, rebound or rigidity Extremities Exam Extremities exam: Absent edema Neurological Exam Neurological exam: Present alert, oriented X3 and normal gait; Absent CN II-XII intact (Mild dysarthria from previous CVAs. Both patient and state this is normal. Posterior parietal scalp numbness on the right, as outlined above) or motor sensory deficit Skin Skin exam: Present warm and dry; Absent diaphoresis or erythema Medical Decision Making Medical Records Medical records reviewed: Yes I reviewed the patient's medical records. [place] Inquiry Pt receiving controlled substance: No [place] was queried for this patient: No Vital Signs: 01/01/24 10:58 01/01/24 11:29 01/01/24 12:15 Temperature 97.9 F Temperature Source Oral Pulse Rate 66 64 Pulse Rate [Left Radial] 73 Respiratory Rate 18 Blood Pressure 145/79 H 166/77 H Blood Pressure [Right Arm] 135/81 Blood Pressure Mean [Right Arm] 99 Blood Pressure Source [Right Arm] Automatic Cuff Blood Pressure Position [Right Arm] Sitting 02 Sat by Pulse Oximetry 99 99 99 Oxygen Delivery Method Room Air 01/01/24 12:31 Temperature Temperature Source Pulse Rate 62 Pulse Rate [Left Radial] Respiratory Rate Blood Pressure 160/87 H Blood Pressure [Right Arm] Blood Pressure Mean [Right Arm] Blood Pressure Source [Right Arm] Blood Pressure Position [Right Arm] 02 Sat by Pulse Oximetry 98 Oxygen Delivery Method Lab Data Lab Results 01/01/24 11:05: WBC 5.2, RBC 4.50 L, Hgb 14.0 L, Hct 43.0, MCV 95.6 H, MCH 31.2, MCHC 32.7, RDW 14.0, Plt Count 178, MPV 9.3, Neut % (Auto) 68.9, Lymph % (Auto) 19.7, [place] % (Auto) 7.8, Eos % (Auto) 2.7, Baso % (Auto) 0.8, Neut # (Auto) 3.6, Lymph # (Auto) 1.0, [place] # (Auto) 0.4, Eos # (Auto) 0.1, Baso # (Auto) 0.0, Sodium 138, Potassium 4.4, Chloride 104, Carbon Dioxide 29, Anion Gap 9.4, BUN 28 H, Creatinine 0.80, Estimated Creat Clear 44, Estimated GFR 92, Est GFR ( Amer) 111, Glucose 103 H, Calcium 9.1, Total Bilirubin 1.1, AST 32, ALT 18, Alkaline Phosphatase 95, Total Protein 7.0, Albumin 3.9, Globulin 3.1, Albumin/Globulin Ratio 1.3 01/01/24 11:05 01/01/24 11:05 Orders (Tests/Meds): ED MEDICATIONS Discontinued Medications Generic Name Dose Route Start Last Admin Trade Name Freq PRN Reason Stop Dose Admin Iopamidol 100 ml 01/01/24 12:15 01/01/24 12:16 Iopamidol-370 (76%);100ml Bottle IV 01/01/24 12:16 100 ml ONCE ONE Administration Sodium Chloride 10 ml 01/01/24 12:15 01/01/24 12:16 Sodium Chloride 0.9% 10ml Syr (Rad Only) IV 01/01/24 12:16 10 ml ONCE ONE Administration Sodium Chloride 50 ml 01/01/24 12:15 01/01/24 12:15 0.9 % Sodium Chloride 50 Ml Vial IV 01/01/24 12:16 50 ml ONCE ONE Administration ORDERS Category Date Time Status CT angio head Stat Cat Scan 01/01/24 11:[address] angio neck Stat Cat Scan 01/01/24 11:[address] head/brain wo con Stat Cat Scan 01/01/24 11:04 Taken CBC w/Auto Diff [Complete Blood Count Auto Diff] Stat Lab 01/01/24 11:05 Completed CMP [Comprehensive Metabolic Panel] Stat Lab 01/01/24 11:05 Completed Medical Decision Narrative: 83-year-old male history of aortic valve replacement complicated by perforation necessitating conversion to open sternotomy and repair, numerous CVAs not currently on anticoagulation, hypertension, hyperlipidemia, colon cancer status postresection, sarcoma status post radiation treatment presenting with neurologic complaints. Patient states that at 1 AM today, 12/31, he was laying in bed when a big boom, woke him up from sleep. It felt like it was in the back of his head and is associated with posterior lateral scalp numbness that he does not believe was there previously. Patient states he went back to sleep, had 3 or 4 more episodes of this. at bedside to corroborate story, states that during the first boom, that he heard, she heard something outside of the house as well, but patient was insistent that the sound did not come from outside the house and was, in fact, in his head. No neurologic deficits otherwise, no headache, no pain, no vision changes, no chest pain, or any other symptoms. Concerned given his history of stroke and wanted to be evaluated. Never had anything like this in the past. History was obtained via conversation with patient and . On arrival, patient hemodynamically stable, alert, oriented x4, appropriate, GCS 15, moving all extremities spontaneously, pupils equal and reactive to light. Full physical exam performed and significant for well- appearing male at neurologic baseline. Residual dysarthria, residual right- sided weakness, but these are from previous strokes. No deficits, per him and , they are new, other than scalp tenderness overlying parieto-occipital junction on the right side. Does not extend anteriorly past temporal region, does not extend posteriorly or inferiorly toward midline occiput or neck. Cardiopulmonary exam within normal limits. Differential includes cervicalgia, radiculopathy, neuropathy, auditory hallucination, CVA, intracranial hemorrhage, parasomnia, among other. Workup independently interpreted and significant for nonactionable CBC or chemistry. CT head without acute hemorrhage, CTA of the head and neck with what appears to be chronic occlusion of the left vertebral artery. On final radiology read, compensatory retrograde flow from right vertebral artery. See radiology read for full review of final results. On reevaluation, patient resting calmly bed without any acute complaints and no further episodes since this morning. I am unsure what is causing patient's popping sound he is hearing in his head and whether it is internal or external, based on family's commenting on hearing something at the same time it seemed like it was outside the house. Unsure if it is neurologic phenomenon, parasomnias, or unrelated to bodily function. Workup today unremarkable. CT imaging not consistent with patient's presentation given what appears to be chronically versus subacutely occluded left vertebral artery without posterior circulation symptoms. results were relayed to him and , patient agreeable to outpatient management. Because patient at baseline without signs or symptoms of clinical decompensation, deemed appropriate for discharge. Results were relayed to patient who voiced understanding and were agreeable to outpatient management and follow up. I discussed my clinical impression with patient and answered all questions. At this time, the evidence for any other entities in the differential is insufficient to warrant any further testing or ED observation. This was explained as well. Advisory was given that persistent or worsening symptoms require further evaluation. I confirmed the understanding of this discussion. [employer] disclaimer Much of this encounter note is an electronic event security officer spoken language to printed text. Electronic event security officer of the spoken language may permit errors. Although I have reviewed the note, some errors may still exist. Critical Care Critical Care Time Critical Care Time: No
[2024-01-01 11:21] LABS: Alanine Aminotransferase 18 U/L (12-78); Aspartate Amino Transferase 32 U/L (17-59); Blood Urea Nitrogen 28 mg/dl (9-20); Creatinine Clearance Estimated 44 mL/min (50-200); Estimated Glomerular Filt Rate 92 ml/min (>60); GFR (African American) 111 ML/MIN (>60)
[2024-01-01 11:22] LABS: Albumin Level 3.9 g/dl (3.5-5.0); Albumin/Globulin Ratio 1.3 (1.1-1.8); Alkaline Phosphatase 95 U/L (38-126); Anion Gap 9.4 mEq/L (5-15); Bilirubin,Total 1.1 mg/dl (0.2-1.3); Calcium 9.1 mg/dl (8.4-10.2); Carbon Dioxide 29 mmol/L (22.0-30.0); Globulin 3.1 g/dL (1.3-3.2); Glucose 103 mg/dl (74-100)
[2024-01-01 11:29] LABS: Basophils % 0.8 % (0.1-2.0); Eosinophils # 0.1 K/mm3 (0.0-0.4); Eosinophils % 2.7 % (0.1-12.0); Lymphocytes % 19.7 % (10-50); Mean Corpuscular HGB Conc 32.7 g/dL (31.8-35.4); Mean Corpuscular Hemoglobin 31.2 pg (27.0-31.2); Mean Corpuscular Volume 95.6 fl (80-94); Mean Platelet Volume 9.3 fl (7.4-10.4); Monocytes # 0.4 K/mm3 (0.1-1.0); Monocytes % 7.8 % (1.7-9.3); Neutrophils # 3.6 K/mm3 (1.8-7.8); Neutrophils % 68.9 % (37.0-80.0); Platelet Count 178 K/mm3 (142-424); White Blood Count 5.2 K/mm3 (4.8-10.8)
[2024-01-01] MEDS: 0.9 % SODIUM CHLORIDE 50 ML VIAL IV (12:15)
[2024-01-01] MEDS: SODIUM CHLORIDE 0.9% 10ML SYR (RAD ONLY) 10 ML IV (12:16)
[2024-01-01] MEDS: IOPAMIDOL-370 (76%);100ML BOTTLE 100 ML IV (12:16)
--- NOTE | 2024-01-01 13:44 | PC.NURSE ---
dr brothers at bedside
== END 2024-01-01 13:55 | disposition home or self-care (01) ==
PROVIDERS: Emergency Provider Emergency Medicine; PCP Family Medicine
DX: I65.02 Occlusion and stenosis of left vertebral artery (principal); R29.818 Other symptoms and signs involving the nervous system; R20.0 Anesthesia of skin; I10 Essential (primary) hypertension; E78.5 Hyperlipidemia, unspecified; Z86.73 Personal history of transient ischemic attack (TIA), and cerebral infarction without residual deficits; Z85.038 Personal history of other malignant neoplasm of large intestine; Z92.3 Personal history of irradiation
CPT/HCPCS: 70450; 70496; 70498; 80053; 85025; 99285; Q9967

== ENCOUNTER 2024-01-15 11:29 | Day surgery (SDC) | payer MEDICARE, SELFPAY ==
[2024-01-14 13:41] VITALS: BMI 19.8
[2024-01-15] VITALS (7 sets, daily range): BP systolic 109–149; BP diastolic 57–85; PULSE 65–78; RESP 16–18; TEMP 36.1–36.3; O2SAT 97–100
[2024-01-15] MEDS: LACTATED RINGERS 1000ML 1,000 ML 25 ML IV (12:18)
--- NOTE | 2024-01-15 12:57 | P.HP_ITS ---
HPI HPI HPI: Patient presents for repeat sigmoidoscopy and possible dilatation. He is an 83-year-old male whom had undergone low anterior resection by Dr. Henrik Polanco at [facility] in November 1997. In October 2021 he was admitted with possible bowel obstruction and had findings consistent with partial colon obstruction. This was managed nonoperatively. However, he has required multiple sigmoidoscopy with dilatation of recurrent benign stricture. * He underwent colonoscopy on 11/11/2021 which revealed severe anastomotic stricture which was dilated to 16.5 mm. He had undergone biopsies which were benign. * Flexible sigmoidoscopy on 01/03/22 with dilatation to 20 mm. * Sigmoidoscopy with dilatation was performed on 03/14/2022 with repeat dilatation to 20 mm. * He was dilated on 07/04/22 to 18 mm. * 10/10/2022 he was dilated to 20 mm. * Sigmoidoscopy on 10/23/2023 revealed essentially obstructed stricture with no visible luminal diameter. This was sequentially dilated initially beginning at 6 mm and ultimately to 13.5 mm * Sigmoidoscopy on 12/04/2023 revealed severe stricture creating high-grade partial distal obstruction which was dilated initially from 8 mm to ultimately 16.5. It was recommended he undergo repeat early sigmoidoscopy with dilatation. . [facility] Disclaimer: The information contained in this section may have been updated after the patient was seen, as this information can be updated by other users. Medical History History of gastroesophageal reflux (GERD) History of cataract Sarcoma Tremor Stroke Colon cancer Seizure disorder CVA (cerebrovascular accident) HTN (hypertension) Surgical History History of cataract surgery History of open heart surgery History of aortic valve replacement History of heart surgery History of cholecystectomy History of colon resection History of colonoscopy Family History Other Cancer Heart attack Social History Smoking Status: Never smoker second hand exposure: No alcohol intake: never substance use type: denies use current occupational status: retired Travel in the last 8 weeks: None household members: spouse housing: house lives independently: No marital status: 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 occupational exposures/hazards: No caffeine: No Meds Home Medications and Allergies Home Medications Medication Instructions Recorded Confirmed Type atorvastatin 40 mg tablet 40 mg PO DAILY Cholesterol 02/22/19 01/14/24 History lisinopril 10 mg tablet 10 mg PO DAILY Hypertension 02/20/20 01/14/24 History amlodipine 5 mg tablet 5 mg PO DAILY Hypertension 10/25/20 01/14/24 History metoprolol succinate 25 mg 25 mg PO DAILY Hypertension 05/14/21 01/14/24 History tablet,extended release 24 hr omeprazole magnesium 20 mg 40 mg (2 x 20 mg) PO DAILY GERD ##0 05/25/21 01/14/24 Rx tablet,delayed release promethazine 25 mg tablet 25 mg PO Q6H PRN nausea and 08/06/23 01/14/24 Rx vomiting #20 tabs duloxetine 60 mg capsule,delayed 60 mg PO BID #60 caps 08/11/23 01/14/24 Rx release gabapentin 300 mg capsule 900 mg (3 x 300 mg) PO BID Severe 08/11/23 01/14/24 Rx neuropathy #180 caps silver sulfadiazine 1 % topical 1 applic topical BID 08/11/23 01/14/24 History cream (SSD) New Prescriptions to Start Prescriptions: Allergies Allergy/AdvReac Type Severity Reaction Status Date / Time No Known Allergies Allergy Verified 01/14/24 13:40 Exam Data for Last 24 hours Vital signs and Labs for Last 24 Hours: Temp Pulse Resp BP Pulse Ox O2 Del Method 97 F L 78 16 144/85 H 98 Room Air 01/15/24 12:11 01/15/24 12:11 01/15/24 12:11 01/15/24 12:11 01/15/24 12:11 01/15/24 12:11 I & O for Last 24 hours: Intake & Output 01/13/24 01/14/24 01/15/24 01/16/24 11:59 11:59 11:59 11:59 Weight 130 lb Constitutional Constitutional: no acute distress *Routine HEENT Exam Head: Present normocephalic Eye: Present EOMI and PERRL ENT: Present mucous membranes moist *Routine Neck Exam Neck: Present supple; Absent lymphadenopathy *Routine Respiratory Exam Respiratory: Present CTA bilaterally *Routine Cardiovascular Exam Cardiovascular: Present RRR *Routine Abdominal Exam Abdominal: Present soft and normoactive bowel sounds; Absent tenderness *Routine Rectal Exam Rectal:: deferred *Routine Genitalia Exam Genitalia:: deferred *Routine Extremities Exam Extremities: Absent cyanosis, clubbing or edema *Routine Skin Exam Skin: Present warm; Absent rash *Routine Neurological Exam Neurological: Present alert and oriented X3 Assessment and Plan *Assessment and plan (1) Rectal stricture: Status: Acute Category: Medical Code(s): K62.4 - Stenosis of anus and rectum Plan Plan for flexible sigmoidoscopy with dilatation
--- NOTE | 2024-01-15 13:10 | P.PNANES_ITS ---
[facility] Disclaimer: The information contained in this section may have been updated after the patient was seen, as this information can be updated by other users. Medical History History of gastroesophageal reflux (GERD) History of cataract Sarcoma Tremor Stroke Colon cancer Seizure disorder CVA (cerebrovascular accident) HTN (hypertension) Surgical History History of cataract surgery History of open heart surgery History of aortic valve replacement History of heart surgery History of cholecystectomy History of colon resection History of colonoscopy Family History Other Cancer Heart attack Social History Smoking Status: Never smoker second hand exposure: No alcohol intake: never substance use type: denies use current occupational status: retired Travel in the last 8 weeks: None household members: spouse housing: house lives independently: No marital status: 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 occupational exposures/hazards: No caffeine: No [facility] Anesthesia Checklist Patient Identification Patient Identification: Arm Band, Family and Verbal (Name & ) Structural Data Admitted From: Home Planned Operative Procedure/s: Sigmoidoscopy w/rectal dilation Consent for Planned Operative Procedure(s) Verified: Yes Verified Documents: Surgical Consent and History and Physical NPO Status Verified Time NPO: 23:00 Chart Verification Results Verified: CBC, BMP, ECG and Chest Xray Additional verifications Patient : No Anesthesia Reactions: No Hx Blood Transfusions: No Blood Transfusion Reaction: No Cardiovascular Assessment Heart Sounds: S1 & S2 Pulse Rhythm: Irregular Peripheral Edema: No Airway Assessment Mallampati Score:: Class II C-Spine Mobility Assessed: Yes TMJ Mobility Assessed: Yes Dentition: Poor Dentition (Nothing loose per pt.) Neurological Assessment Level of Consciousness: Awake, Alert, Appropriate and Follows Commands Hx Seizures: Yes Numbness or tingling in extremities: No Anesthesia Plan Anesthesia Risk discussed: Yes Anesthesia Plan: Verified ASA Class: III Anesthesia Type: MAC
--- NOTE | 2024-01-15 13:36 | P.PCN_ITS ---
Procedure: Date: 01/15/24 Patient Date of :: 1940 Procedure Performed:: Flexible sigmoidoscopy with dilatation of rectal stricture to 18 mm Indications:: Patient presents for repeat sigmoidoscopy and possible dilatation. He is an 83-year-old male whom had undergone low anterior resection by Dr. Henrik Polanco at [facility] in November 1997. In October 2021 he was admitted with possible bowel obstruction and had findings consistent with partial colon obstruction. This was managed nonoperatively. However, he has required multiple sigmoidoscopy with dilatation of recurrent benign stricture. * He underwent colonoscopy on 11/11/2021 which revealed severe anastomotic stricture which was dilated to 16.5 mm. He had undergone biopsies which were benign. * Flexible sigmoidoscopy on 01/03/22 with dilatation to 20 mm. * Sigmoidoscopy with dilatation was performed on 03/14/2022 with repeat dilatation to 20 mm. * He was dilated on 07/04/22 to 18 mm. * 10/10/2022 he was dilated to 20 mm. * Sigmoidoscopy on 10/23/2023 revealed essentially obstructed stricture with no visible luminal diameter. This was sequentially dilated initially beginning at 6 mm and ultimately to 13.5 mm * Sigmoidoscopy on 12/04/2023 revealed severe stricture creating high-grade partial distal obstruction which was dilated initially from 8 mm to ultimately 16.5. It was recommended he undergo repeat early sigmoidoscopy with dilatation. Note: Between his sigmoidoscopy September 2022 and September 2023 patient had been diagnosed with sarcoma. It was for this reason that it was quite a prolonged interval between sigmoidoscopies. . Performing Provider:: Christiano Rm MD Referring Provider:: Brayan Batista MD Sedation:: MAC sedation Procedure:: Patient history was obtained and appropriate physical examination was performed. Patient's medications and allergies were reviewed. Informed consent was obtained after explaining the benefits, alternatives, and risks of the procedure including, but not limited to, bleeding, perforation, missed lesions, and adverse reaction to anesthesia medications. Patient was transported to endoscopy procedure room. Patient was connected to monitoring devices. Throughout the procedure the patient's blood pressure, pulse, and oxygen saturations were monitored continuously. Patient identification and planned procedure were verified by the staff. Patient was positioned in lateral decubitus position. Digital anorectal exam was performed. Olympus endoscope was inserted via the anus. Stricture was encountered at approximately 11 or 12 cm from the anal verge. The endoscope was able to be advanced beyond this. There was some angulation at this point. Proximal colon prep was quite good. At this time a 12 to 15 mm TTS balloon was inserted through the endoscope. As the endoscope was withdrawn balloon was advanced such that the balloon was positioned within the stricture lumen. Stricture was then sequentially dilated from 12 mm to 13.5 mm was thinned to 15 mm where it was held for approximately 1 minute. Balloon dilator was removed. Once again the endoscope was advanced proximally. 15 to 18 mm balloon was inserted and it was positioned within the stricture lumen. Sequential dilatation was performed initially to 15 mm then 16.5 mm then 18 mm which was held for approximately 2 minutes. Balloon was removed. Endoscope was then able to be advanced to the descending colon distal to the splenic flexure at which point some solid stool was encountered. Endoscope was slowly withdrawn with careful evaluation of the left colon. Endoscope was withdrawn. . Findings:: Rectal stricture at approximately 11 or 12 cm from anal verge. Sequential dilatation performed beginning at 12 mm ultimately to 18 mm luminal diameter. . Recommendations:: Repeat flexible sigmoidoscopy in 6 to 8 weeks hopefully with dilatation to 20 mm. Complications:: None immediately apparent Estimated blood obtained (mL): 1 Colonoscopy Component Colonoscopy Component Was a colonoscopy performed during today's procedure?: No
--- NOTE | 2024-01-15 13:41 | EXP.ANES.I ---
[facility] Anesthesia Record Part I Anesthesia Record I Intake, IV Amount: 400 Hydration: Adequate Estimated blood loss (mL): 5 Urine output (mL): 0 Blood Products used (#): none Blood Pressure: 109/57 SaO2: 100 Pulse Rate: 69 Airway Patency: Patent Respiratory Rate: 16 Temperature: 97.4 F Patient is:: Awake (Talking) and Stable Stable to PACU at:: 13:43
== END 2024-01-15 14:18 | disposition home or self-care (01) ==
PROVIDERS: PCP Family Medicine; Visit Provider Surgery
PROC: 0DJD8ZZ Inspection of Lower Intestinal Tract, Via Natural or Artificial Opening Endoscopic (ICD-10-PCS; CPT 45330; principal; 2024-01-15 12:30)
DX: K62.4 Stenosis of anus and rectum (principal)
CPT/HCPCS: 45330; C1726; J7120

== ENCOUNTER 2024-03-07 11:25 | Day surgery (SDC) | payer MEDICARE, SELFPAY ==
[2024-03-03 10:56] VITALS: BMI 19.7
[2024-03-07 11:51] VITALS: BP 138/71; PULSE 69; RESP 18; TEMP 36.2; O2SAT 99
[2024-03-07] MEDS: LACTATED RINGERS 1000ML 1,000 ML 100 ML IV (12:00)
--- NOTE | 2024-03-07 13:08 | P.PNANES_ITS ---
[facility] Disclaimer: The information contained in this section may have been updated after the patient was seen, as this information can be updated by other users. Medical History History of gastroesophageal reflux (GERD) History of cataract Sarcoma Tremor Stroke Colon cancer Seizure disorder CVA (cerebrovascular accident) HTN (hypertension) Surgical History (Updated 03/03/24 @ 10:53 by Virginie Gama RN) H/O hernia repair History of cataract surgery History of open heart surgery History of aortic valve replacement History of heart surgery History of cholecystectomy History of colon resection History of colonoscopy Family History Other Cancer Heart attack Social History (Updated 03/03/24 @ 10:54 by Virginie Gama RN) Smoking Status: Never smoker second hand exposure: No alcohol intake: never substance use type: denies use current occupational status: retired Travel in the last 8 weeks: None household members: spouse housing: house lives independently: No marital status: 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 occupational exposures/hazards: No caffeine: Yes [facility] Anesthesia Checklist Patient Identification Patient Identification: Verbal (Name & ) Structural Data Admitted From: Home Planned Operative Procedure/s: colonoscopy Consent for Planned Operative Procedure(s) Verified: Yes Additional verifications Anesthesia Reactions: No Hx Blood Transfusions: No Blood Transfusion Reaction: No Airway Assessment Mallampati Score:: Class II C-Spine Mobility Assessed: Yes TMJ Mobility Assessed: Yes Dentition: Poor Dentition Neurological Assessment Level of Consciousness: Awake, Alert and Appropriate Anesthesia Plan Anesthesia Risk discussed: Yes Anesthesia Plan: Verified ASA Class: IV Anesthesia Type: MAC
[2024-03-07 13:36] VITALS: O2SAT 96
--- NOTE | 2024-03-07 13:52 | P.PCN_ITS ---
Procedure: Date: 03/07/24 Patient Date of :: 1940 Procedure Performed:: Flexible sigmoidoscopy with dilatation rectal stricture to 20 mm Indications:: Patient presents for repeat sigmoidoscopy and possible dilatation. He is an 83-year-old male whom had undergone low anterior resection by Dr. Henrik Polanco at [facility] in November 1997. In October 2021 he was admitted with possible bowel obstruction and had findings consistent with partial colon obstruction. This was managed nonoperatively. However, he has required multiple sigmoidoscopy with dilatation of recurrent benign stricture. * He underwent colonoscopy on 11/11/2021 which revealed severe anastomotic stricture which was dilated to 16.5 mm. He had undergone biopsies which were benign. * Flexible sigmoidoscopy on 01/03/22 with dilatation to 20 mm. * Sigmoidoscopy with dilatation was performed on 03/14/2022 with repeat dilatation to 20 mm. * He was dilated on 07/04/22 to 18 mm. * 10/10/2022 he was dilated to 20 mm. * Sigmoidoscopy on 10/23/2023 revealed essentially obstructed stricture with no visible luminal diameter. This was sequentially dilated initially beginning at 6 mm and ultimately to 13.5 mm * Sigmoidoscopy on 12/04/2023 revealed severe stricture creating high-grade partial distal obstruction which was dilated initially from 8 mm to ultimately 16.5.It was recommended he undergo repeat early sigmoidoscopy with dilatation. * Sigmoidoscopy on 01/15/2024 with dilatation performed sequentially from 12 mm to 18 millimeters. Note: Between his sigmoidoscopy September 2022 and September 2023 patient had been diagnosed with sarcoma. It was for this reason that it was quite a prolonged interval between sigmoidoscopies. Performing Provider:: Christiano Rm MD Referring Provider:: Brayan Batista MD Sedation:: MAC sedation Procedure:: Patient history was obtained and appropriate physical examination was performed. Patient's medications and allergies were reviewed. Informed consent was obtained after explaining the benefits, alternatives, and risks of the procedure including, but not limited to, bleeding, perforation, missed lesions, and adverse reaction to anesthesia medications. Patient was transported to endoscopy procedure room. Patient was connected to monitoring devices. Throughout the procedure the patient's blood pressure, pulse, and oxygen saturations were monitored continuously. Patient identification and planned procedure were verified by the staff. Patient was positioned in lateral decubitus position. Digital anorectal exam was performed. Olympus endoscope was inserted via the anus. It was advanced. At approximately 11 cm from the anus stricture was encountered. It was patent and the endoscope was able to be advanced beyond this to approximately 30 cm at which point stool was encountered. Endoscope was withdrawn to the stricture. TTS balloon dilator was inserted. Stricture was sequentially dilated from 18-19 then to 20 mm. It was held for a couple of minutes at 20 mm. There was minor expected mucosal tear secondary to dilatation. Endoscope was withdrawn. . Findings:: Stricture at approximately 11 cm from the anus Recommendations:: Repeat flexible sigmoidoscopy likely 8 to 12 weeks. Complications:: None immediately apparent Estimated blood obtained (mL): 2 Colonoscopy Component Colonoscopy Component Was a colonoscopy performed during today's procedure?: No
[2024-03-07 13:54] VITALS: BP 89/53; PULSE 59; RESP 18; TEMP 36.3; O2SAT 98
[2024-03-07 14:04] VITALS: BP 97/62; PULSE 63; RESP 18; O2SAT 98
[2024-03-07 14:14] VITALS: BP 113/61; PULSE 61; RESP 18; O2SAT 100
[2024-03-07 14:30] VITALS: BP 143/76; PULSE 59; RESP 18; O2SAT 98
== END 2024-03-07 14:30 | disposition home or self-care (01) ==
PROVIDERS: PCP Family Medicine; Visit Provider Surgery
PROC: 0DJD8ZZ Inspection of Lower Intestinal Tract, Via Natural or Artificial Opening Endoscopic (ICD-10-PCS; CPT 45330; principal; 2024-03-07 12:30)
DX: K62.4 Stenosis of anus and rectum (principal)
CPT/HCPCS: 45340; C1726; J7120

== ENCOUNTER 2024-04-20 08:23 | Outpatient (POV) | payer MEDICARE, SELFPAY ==
[2024-04-20 08:38] VITALS: BP 152/78; PULSE 80; RESP 16; O2SAT 98; BMI 20.3
--- NOTE | 2024-04-20 09:02 | EXP.PAIN.SOA ---
[facility] Disclaimer: The information contained in this section may have been updated after the patient was seen, as this information can be updated by other users. Medical History (Updated 04/20/24 @ 09:05 by Naomie Murphy APRN) History of gastroesophageal reflux (GERD) History of cataract Sarcoma Tremor Stroke Colon cancer Seizure disorder 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 occupational exposures/hazards: No caffeine: Yes PM Subjective & Objective Subjective Subjective:: Patient is a pleasant 83-year-old male who presents today for worsening pain. Today he rates his pain at a 5 out of 10. Patient states he has been experiencing significant pain again with his right knee. Patient did have 2 previous right genicular nerve blocks that did provide upwards of 80% improvement. Patient does state that he would like to see about getting scheduled for an additional procedure for the worsening pain. He describes it as a aching, throbbing sensation that does interfere with his ability to perform activities of daily living such as cooking and cleaning. Patient does state from our last visit back in July he ended up helping his son with some wood and accidentally got ran over by the trailer. Patient states that he ended up spending 3 days in and has been recovering from this. Patient is prescribed gabapentin from an outside provider. His Arden has been reviewed and is appropriate. Review of Systems: General: No recent weight changes, no fever, no sleep disturbances Respiratory: No cough, no shortness of air, no recurring pulmonary infections Cardiovascular/peripheral vascular: No chest pain, no palpitations, no edema, no shortness of breath Gastrointestinal: No new onset incontinence, normal bowel movements reported Genitourinary: No new onset incontinence Musculoskeletal: Right knee pain Psychiatric: [Normal mood/affect] Neurological: [Denies weakness in extremities], [denies balance issues] Pain at rest (0-10 scale): 5 Objective Objective:: Physical Exam: General: Alert and oriented x3, no acute distress, pleasant and cooperative Lungs: Respirations even and unlabored, symmetrical chest expansion Eyes: PERRL Musculoskeletal: Flexion and extension of right knee somewhat guarded secondary to pain, [antalgic gait noted] Neurological: Speech clear, no gross sensory deficit Has patient had previous pain injection?: No Conservative treatment options previously tried: Home exercise plan Length of treatment: Longer than 12 weeks Meds Home Medications and Allergies Home Medications ?Medication ?Instructions ?Recorded ?Confirmed ?Type atorvastatin 40 mg tablet 20 mg PO DAILY Cholesterol 02/22/19 04/20/24 History lisinopril 10 mg tablet 10 mg PO DAILY Hypertension 02/20/20 04/20/24 History amlodipine 5 mg tablet 5 mg PO DAILY Hypertension 10/25/20 04/20/24 History metoprolol succinate 25 mg 25 mg PO DAILY Hypertension 05/14/21 04/20/24 History tablet,extended release 24 hr promethazine 25 mg tablet 25 mg PO Q6H PRN nausea and 08/06/23 04/20/24 Rx vomiting #20 tabs gabapentin 300 mg capsule 2,100 mg (7 x 300 mg) PO DAILY 02/09/24 04/20/24 Rx Neuropathy, seizures #210 caps omeprazole magnesium 20 mg 20 mg PO DAILY GERD 03/03/24 04/20/24 History tablet,delayed release duloxetine 60 mg capsule,delayed 60 mg PO BID #60 caps 03/24/24 04/20/24 Rx release New Prescriptions to Start Prescriptions: Allergies Allergy/AdvReac Type Severity Reaction Status Date / Time No Known Allergies Allergy Verified 04/20/24 08:48 Assessment and Plan *Assessment and plan (1) Right knee pain: Status: Acute Qualifiers: Chronicity: chronic Qualified Code(s): M25.561 - Pain in right knee; G89.29 - Other chronic pain Category: Medical Code(s): M25.561 - Pain in right knee Plan Patient is experiencing worsening pain in his right knee with limited range of motion. Patient did have 2 successful right genicular nerve blocks that did provide more than 80% relief. Patient did have improved function for several weeks to months with these injections. Patient had these in December and February 2023. I did review over the risk and benefits of genicular radiofrequency ablation. Patient would like to proceed forward with this plan of care. Patient is not on any blood thinners. Patient has tried and failed conservative therapy including continued at home stretching exercise for longer than 12 weeks. Patient will be scheduled for a right genicular radiofrequency ablation under fluoroscopy. Patient has been instructed to contact the clinic with any concerns before the next appointment. Dr. Jimenez has reviewed this note and agrees with this plan of care. This note was dictated using voice recognition software and make contain errors or omissions. All injections are used with Lidocaine or Bupivacaine and Depo Medrol.
== END 2024-04-20 23:59 | disposition home or self-care (01) ==
LOC: SC.PAIN 08:25
PROVIDERS: PCP Family Medicine; Visit Provider Nurse Practitioner Family
DX: M25.561 Pain in right knee (principal); G89.29 Other chronic pain; Z73.89 Other problems related to life management difficulty
CPT/HCPCS: 99212; G0463

== ENCOUNTER 2024-05-10 13:32 | Day surgery (SDC) | payer MEDICARE, SELFPAY ==
[2024-05-10 13:47] VITALS: BP 120/68; PULSE 78; RESP 16; TEMP 37.2; O2SAT 98; BMI 20.5
[2024-05-10] MEDS: methylPREDNISolone ACETATE 80MG/ML VIAL 80 MG (14:12)
[2024-05-10 14:13] VITALS: BP 135/61; PULSE 74; RESP 18; O2SAT 97
[2024-05-10] MEDS: BUPIVACAINE 0.25% 10ML INJ 25 MG IJ (14:13)
[2024-05-10] MEDS: LIDOCAINE 1% 5ML PF VIAL 5 ML (14:13)
[2024-05-10 14:15] VITALS: BP 135/61; PULSE 74; RESP 18; O2SAT 97
[2024-05-10 14:25] VITALS: BP 130/75; PULSE 78; RESP 16; O2SAT 95
--- NOTE | 2024-05-10 14:50 | P.PCN_ITS ---
Procedure Date: 05/10/24 Time: 14:10 Anesthesiologist:: Darell James CRNA Complications:: None Pre-procedure Diagnosis:: DJD right knee. Chronic right knee pain. Post-procedure Diagnosis:: Same. Indications for Procedure:: Patient is a pleasant 84-year-old male who comes our clinic today for right genicular nerve radiofrequency ablation. Patient responded very well to right genicular blocks prior to today. He describes the right knee pain as constant, dull, aching. He rates the pain 8/10. Procedure Details:: Right knee genicular RFA Informed consent was obtained risk and benefits of the procedure were explained to the patient. Patient was taken the procedure room. The right knee was prepped using ChloraPrep. The skin and subcutaneous tissues were anesthetized using lidocaine. I placed 20-gauge RF needles into the superior lateral genicular nerve area of the superior medial genicular nerve area and inferior medial genicular nerve area we underwent sensory stimulation. There is good sensory stimulation at 1 V. We underwent motor stimulation. There was no motor stimulation at 3 V. We then anesthetized all 3 nerves with bupivacaine and Depo- Medrol. We then burned each genicular nerve superior lateral, superior medial and inferior medial 80 ?C for 4 minutes. Patient tolerated procedure well with no complications. Plan and Disposition: We will follow-up with him in 2 weeks. Will reevaluate symptoms at that time. Plan and Disposition:: Patient was discharged without incident.
== END 2024-05-10 14:25 | disposition home or self-care (01) ==
LOC: SC.PAINP 13:34
PROVIDERS: PCP Family Medicine; Visit Provider Nurse Anesthetist, Certified Registered
DX: M17.11 Unilateral primary osteoarthritis, right knee (principal); M25.561 Pain in right knee; G89.29 Other chronic pain
CPT/HCPCS: 64624; J1010

== ENCOUNTER 2024-05-30 10:19 | Outpatient (POV) | payer MEDICARE, SELFPAY ==
--- NOTE | 2024-05-30 11:14 | A.OFFVIS_ITS ---
[facility] Disclaimer: The information contained in this section may have been updated after the patient was seen, as this information can be updated by other users. Medical History (Updated 05/30/24 @ 11:16 by Naomie Murphy APRN) History of gastroesophageal reflux (GERD) History of cataract Sarcoma Tremor Stroke Colon cancer Seizure disorder 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 occupational exposures/hazards: No caffeine: Yes PM Subjective & Objective Subjective Subjective:: Patient is a pleasant 84-year-old male who presents today for follow-up of a genicular RFA on the right knee on 05/10/2024. Today he rates his pain a 4 out of 10 in this location and states that he did have significant improvement the first day however it did start to wear down and he is rating it at least 30% n ail. Patient does state however that he is having worsening pain in his low back and hips and rates it a 5 out of 10. He describes it as an aching, throbbing sensation that is worse with prolonged positioning such as sitting or laying down. He does state the pain interferes with his ability perform activities of daily living such as cooking and cleaning. Patient would like to see about doing something for this pain. Patient does have a longstanding history of sacroiliitis and did even have a corner lock procedure at 1 point on the left however stated that it never really gave good improvements like the SI injections. Patient does state he would typically get significant relief of upwards of 80% and had improved function overall. He is PCP is prescribing him gabapentin. His Aredn has been reviewed and is appropriate. Patient has also tried compounded cream with minimal relief. Review of Systems: General: No recent weight changes, no fever, no sleep disturbances Respiratory: No cough, no shortness of air, no recurring pulmonary infections Cardiovascular/peripheral vascular: No chest pain, no palpitations, no edema, no shortness of breath Gastrointestinal: No new onset incontinence, normal bowel movements reported Genitourinary: No new onset incontinence Musculoskeletal: Low back pain, bilateral hip pain Psychiatric: [Normal mood/affect] Neurological: [Denies weakness in extremities], [denies balance issues] Pain at rest (0-10 scale): 5 Objective Objective:: Physical Exam: General: Alert and oriented x3, no acute distress, pleasant and cooperative Lungs: Respirations even and unlabored, symmetrical chest expansion Eyes: PERRL Musculoskeletal: Flexion and extension of lumbar [spine] somewhat guarded secondary to pain, [antalgic gait noted] point tenderness along bilateral SIs with positive bilateral Silvia's, Brandi's, Gaenslen's, compression and distraction exam Neurological: Speech clear, no gross sensory deficit Has patient had previous pain injection?: Yes Percent improvement in pain since last injection: 90% lasting 1 day Conservative treatment options previously tried: Home exercise plan Length of treatment: Longer than 12 weeks Meds Home Medications and Allergies Home Medications ?Medication ?Instructions ?Recorded ?Confirmed ?Type atorvastatin 40 mg tablet 20 mg PO DAILY Cholesterol 02/22/19 05/10/24 History lisinopril 10 mg tablet 10 mg PO DAILY Hypertension 02/20/20 05/10/24 History amlodipine 5 mg tablet 5 mg PO DAILY Hypertension 10/25/20 05/10/24 History metoprolol succinate 25 mg 25 mg PO DAILY Hypertension 05/14/21 05/10/24 History tablet,extended release 24 hr promethazine 25 mg tablet 25 mg PO Q6H PRN nausea and 08/06/23 05/10/24 Rx vomiting #20 tabs gabapentin 300 mg capsule 2,100 mg (7 x 300 mg) PO DAILY 02/09/24 05/10/24 Rx Neuropathy, seizures #210 caps omeprazole magnesium 20 mg 20 mg PO DAILY GERD 03/03/24 05/10/24 History tablet,delayed release duloxetine 60 mg capsule,delayed 60 mg PO BID #60 caps 03/24/24 05/10/24 Rx release New Prescriptions to Start Prescriptions: Allergies Allergy/AdvReac Type Severity Reaction Status Date / Time No Known Allergies Allergy Verified 04/20/24 08:48 Assessment and Plan *Assessment and plan (1) Bilateral sacroiliitis: Status: Acute Category: Medical Code(s): M46.1 - Sacroiliitis, not elsewhere classified Plan Patient is experiencing worsening pain in his bilateral SIs with point tenderness and positive Silvia's, Brandi's, Gaenslen's, compression and distraction exam. I did discuss with him regarding repeat SI injections and he would like to proceed forward with this plan of care due to the worsening pain. Patient has had this issue going on for longer than 3 months and has gotten injection therapy for this in the past. Patient's last SI injection was back in November 2022 that did provide at least 80%. Patient has tried and failed conservative therapy including continued at home stretching exercise for longer than 12 weeks. Patient will be scheduled for bilateral SI injections under fluoroscopy. Patient has been instructed to contact the clinic with any concerns before the next appointment. Dr. Jimenez has reviewed this note and agrees with this plan of care. This note was dictated using voice recognition software and make contain errors or omissions. All injections are used with Lidocaine or Bupivacaine and Depo Medrol.
[2024-05-30 11:21] VITALS: BP 156/74; PULSE 77; RESP 16; O2SAT 97; BMI 20.5
== END 2024-05-30 23:59 | disposition home or self-care (01) ==
LOC: SC.PAIN 10:20
PROVIDERS: PCP Family Medicine; Visit Provider Nurse Practitioner Family
DX: M46.1 Sacroiliitis, not elsewhere classified (principal); Z73.89 Other problems related to life management difficulty
CPT/HCPCS: 99212; G0463

== ENCOUNTER 2024-06-28 09:10 | Day surgery (SDC) | payer MEDICARE, SELFPAY ==
[2024-06-28 09:20] VITALS: BP 159/76; PULSE 74; RESP 16; TEMP 36.4; O2SAT 97; BMI 20.5
[2024-06-28] MEDS: LIDOCAINE 1% 5ML PF VIAL 5 ML (09:31)
[2024-06-28] MEDS: methylPREDNISolone ACETATE 80MG/ML VIAL 80 MG (09:31)
[2024-06-28] MEDS: BUPIVACAINE 0.25% 10ML INJ 25 MG IJ (09:31)
[2024-06-28 09:33] VITALS: BP 152/77; PULSE 66; RESP 18; O2SAT 97
[2024-06-28 09:35] VITALS: BP 152/77; PULSE 71; RESP 18; O2SAT 97
--- NOTE | 2024-06-28 09:35 | P.PCN_ITS ---
Procedure Date: 06/28/24 Time: 09:30 Anesthesiologist:: Darell James CRNA Complications:: None Pre-procedure Diagnosis:: Bilateral sacroiliitis Post-procedure Diagnosis:: Same. Indications for Procedure:: Patient is a very pleasant 84-year-old male who comes our clinic today for bilateral sacroiliac joint injections cortisone and local anesthetic. Patient describes low lumbar back pain off midline bilaterally. Bilateral posterior hip pain. Difficulty transitioning from sitting to standing. Upon examination today he has extreme point tenderness over the bilateral sacroiliac joints. He rates his pain 8/10. Procedure Details:: Procedure: Bilateral sacroiliac joint injections under fluoroscopy Informed consent was obtained and the risks and benefits of the procedure were explained to the patient.~ The patient was taken to the procedure room and noninvasive monitors were placed including a noninvasive blood pressure cuff and pulse oximeter.~ The patient was placed prone on the procedure table. Both hips were cleansed using Betadine as a cleansing solution. C-arm fluoroscopy was used to view the right sacroiliac joint.~ The skin and subcutaneous tissues were anesthetized using lidocaine 1.5% and a 25-gauge needle.~ After this, a 22-gauge spinal needle was inserted under fluoroscopic guidance into the inferior aspect of the right sacroiliac joint.~ Omnipaque dye was injected and good spread was seen throughout the joint.~ After this, approximately 5 mL of bupivacaine, 0.25% and Depo-Medrol, 40 mg was incrementally injected into the right sacroiliac joint. We then moved to the left sacroiliac joint.~ The skin and subcutaneous tissues were anesthetized using lidocaine 1.5% and a 25-gauge needle.~ After this, a 22- gauge spinal needle was inserted under fluoroscopic guidance into the inferior aspect of the left sacroiliac joint.~ Omnipaque dye was injected and good spread was seen throughout the joint. After this, approximately 5 mL of bupivacaine, 0.25% and Depo-Medrol, 40 mg was incrementally injected into the left sacroiliac joint.~ The patient tolerated the procedure well with no complications. The patient was observed in the Pain Clinic and then was discharged home neurologically intact. Plan and Disposition:: Patient was discharged without incident.
[2024-06-28 09:40] VITALS: BP 130/73; PULSE 71; RESP 16; O2SAT 98
== END 2024-06-28 09:40 | disposition home or self-care (01) ==
PROVIDERS: PCP Family Medicine; Visit Provider Nurse Anesthetist, Certified Registered
DX: M46.1 Sacroiliitis, not elsewhere classified (principal)
CPT/HCPCS: 27096; G0260; J1010

== ENCOUNTER 2024-07-08 10:32 | Day surgery (SDC) | payer MEDICARE, SELFPAY ==
[2024-07-07 08:53] VITALS: BMI 23.0
[2024-07-08 11:20] VITALS: BP 167/96; PULSE 77; RESP 17; TEMP 36.4; O2SAT 100
--- NOTE | 2024-07-08 11:25 | P.HP_ITS ---
HPI HPI HPI: Patient presents for repeat sigmoidoscopy and possible dilatation. He is an 84-year-old male whom had undergone low anterior resection by Dr. Henrik Polanco at [facility] in November 1997. In October 2021 he was admitted with possible bowel obstruction and had findings consistent with partial colon obstruction. This was managed nonoperatively. However, he has required multiple sigmoidoscopy with dilatation of recurrent benign stricture. * He underwent colonoscopy on 11/11/2021 which revealed severe anastomotic stricture which was dilated to 16.5 mm. He had undergone biopsies which were benign. * Flexible sigmoidoscopy on 01/03/22 with dilatation to 20 mm. * Sigmoidoscopy with dilatation was performed on 03/14/2022 with repeat dilatation to 20 mm. * He was dilated on 07/04/22 to 18 mm. * 10/10/2022 he was dilated to 20 mm. * Sigmoidoscopy on 10/23/2023 revealed essentially obstructed stricture with no visible luminal diameter. This was sequentially dilated initially beginning at 6 mm and ultimately to 13.5 mm * Sigmoidoscopy on 12/04/2023 revealed severe stricture creating high-grade partial distal obstruction which was dilated initially from 8 mm to ultimately 16.5. * Sigmoidoscopy on 01/15/2024 revealed rectal stricture approximately 11 to 12 cm from the anal verge. This was sequentially dilated ultimately to 18 mm. [facility] Disclaimer: The information contained in this section may have been updated after the [facility] ient was seen, as this information can be updated by other users. Medical History History of gastroesophageal reflux (GERD) History of cataract Sarcoma Tremor Stroke Colon cancer Seizure disorder 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 occupational exposures/hazards: No caffeine: Yes Have you lived/traveled outside [place] in past 30 days?: No Contact w/someone who lives/traveled outside US past 30 days?: No Exposure to someone with infectious disease in past 14 days?: No Do you have a fever (greater than 100.4 F or 38 C)?: No Have you tested positive for COVID-19: No Exposed to someone with COVID-19 in past 14 days?: No Do you have a sore throat?: No Do you have a cough?: No Do you have any weakness?: No Do you have any diarrhea?: No Are you experiencing any unusual bleeding?: No Do you have any muscle aches/pain?: No Do you have any abdominal pain?: No Are you experiencing loss of taste or smell?: No Other Medical History Have you received the Flu Vaccine for this season: No Have you received the Pneumonia Vaccine: No Meds Home Medications and Allergies Home Medications ?Medication ?Instructions ?Recorded ?Confirmed ?Type atorvastatin 40 mg tablet 20 mg PO DAILY Cholesterol 02/22/19 07/08/24 History lisinopril 10 mg tablet 10 mg PO DAILY Hypertension 02/20/20 07/08/24 History amlodipine 5 mg tablet 5 mg PO DAILY Hypertension 10/25/20 07/08/24 History metoprolol succinate 25 mg 25 mg PO DAILY Hypertension 05/14/21 07/08/24 History tablet,extended release 24 hr promethazine 25 mg tablet 25 mg PO Q6H PRN nausea and 08/06/23 07/08/24 Rx vomiting #20 tabs gabapentin 300 mg capsule 2,100 mg (7 x 300 mg) PO DAILY 02/09/24 07/08/24 Rx Neuropathy, seizures #210 caps omeprazole magnesium 20 mg 20 mg PO DAILY GERD 03/03/24 07/08/24 History tablet,delayed release duloxetine 60 mg capsule,delayed 60 mg PO BID #60 caps 03/24/24 07/08/24 Rx release New Prescriptions to Start Prescriptions: Allergies Allergy/AdvReac Type Severity Reaction Status Date / Time No Known Allergies Allergy Verified 07/08/24 11:19 Exam Data for Last 24 hours I & O for Last 24 hours: Intake & Output 07/05/24 07/06/24 07/07/24 12/13/24 11:59 11:59 11:59 11:59 Weight 130 lb Constitutional Constitutional: no acute distress *Routine HEENT Exam Head: Present normocephalic Eye: Present EOMI and PERRL ENT: Present mucous membranes moist *Routine Neck Exam Neck: Present supple; Absent lymphadenopathy *Routine Respiratory Exam Respiratory: Present CTA bilaterally *Routine Cardiovascular Exam Cardiovascular: Present RRR *Routine Abdominal Exam Abdominal: Present soft and normoactive bowel sounds; Absent tenderness *Routine Rectal Exam Rectal:: deferred *Routine Genitalia Exam Genitalia:: deferred *Routine Extremities Exam Extremities: Absent cyanosis, clubbing or edema *Routine Skin Exam Skin: Present warm; Absent rash *Routine Neurological Exam Neurological: Present alert and oriented X3 Assessment and Plan *Assessment and plan (1) Rectal stricture: Status: Acute Category: Medical Code(s): K62.4 - Stenosis of anus and rectum Plan Sigmoidoscopy with hopeful dilatation to 20 mm
[2024-07-08] MEDS: LACTATED RINGERS 1000ML 1,000 ML 25 ML IV (11:28)
--- NOTE | 2024-07-08 11:32 | P.PNANES_ITS ---
[facility] Disclaimer: The information contained in this section may have been updated after the patient was seen, as this information can be updated by other users. Medical History History of gastroesophageal reflux (GERD) History of cataract Sarcoma Tremor Stroke Colon cancer Seizure disorder 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 occupational exposures/hazards: No caffeine: Yes Have you lived/traveled outside US in past 30 days?: No Contact w/someone who lives/traveled outside US past 30 days?: No Exposure to someone with infectious disease in past 14 days?: No Do you have a fever (greater than 100.4 F or 38 C)?: No Have you tested positive for COVID-19: No Exposed to someone with COVID-19 in past 14 days?: No Do you have a sore throat?: No Do you have a cough?: No Do you have any weakness?: No Do you have any diarrhea?: No Are you experiencing any unusual bleeding?: No Do you have any muscle aches/pain?: No Do you have any abdominal pain?: No Are you experiencing loss of taste or smell?: No [facility] Anesthesia Checklist Patient Identification Patient Identification: Arm Band and Verbal (Name & ) Structural Data Admitted From: Home Planned Operative Procedure/s: Flex. sigmoidoscopy Consent for Planned Operative Procedure(s) Verified: Yes Verified Documents: Surgical Consent and History and Physical NPO Status Verified Time NPO: 00:00 Additional verifications Anesthesia Reactions: No Hx Blood Transfusions: No Blood Transfusion Reaction: No Airway Assessment Mallampati Score:: Class II C-Spine Mobility Assessed: Yes TMJ Mobility Assessed: Yes Dentition: Poor Dentition Neurological Assessment Level of Consciousness: Awake Hx Seizures: Yes Numbness or tingling in extremities: Yes Anesthesia Plan Anesthesia Risk discussed: Yes Anesthesia Plan: Verified ASA Class: IV Anesthesia Type: MAC
[2024-07-08 11:40] VITALS: O2SAT 100
[2024-07-08 12:16] VITALS: BP 140/72; PULSE 61; RESP 18; O2SAT 100
--- NOTE | 2024-07-08 12:16 | P.PCN_ITS ---
Procedure: Date: 07/08/24 Patient Date of :: 1940 Procedure Performed:: Flexible sigmoidoscopy with dilatation rectal stricture Indications:: Patient presents for repeat sigmoidoscopy and possible dilatation. He is an 84-year-old male whom had undergone low anterior resection by Dr. Henrik Polanco at [facility] in November 1997. In October 2021 he was admitted with possible bowel obstruction and had findings consistent with partial colon obstruction. This was managed nonoperatively. However, he has required multiple sigmoidoscopy with dilatation of recurrent benign stricture. * He underwent colonoscopy on 11/11/2021 which revealed severe anastomotic stricture which was dilated to 16.5 mm. He had undergone biopsies which were benign. * Flexible sigmoidoscopy on 01/03/22 with dilatation to 20 mm. * Sigmoidoscopy with dilatation was performed on 03/14/2022 with repeat dilatation to 20 mm. * He was dilated on 07/04/22 to 18 mm. * 10/10/2022 he was dilated to 20 mm. * Sigmoidoscopy on 10/23/2023 revealed essentially obstructed stricture with no visible luminal diameter. This was sequentially dilated initially beginning at 6 mm and ultimately to 13.5 mm * Sigmoidoscopy on 12/04/2023 revealed severe stricture creating high-grade partial distal obstruction which was dilated initially from 8 mm to ultimately 16.5. * Sigmoidoscopy on 01/15/2024 revealed rectal stricture approximately 11 to 12 cm from the anal verge. This was sequentially dilated ultimately to 18 mm. . Performing Provider:: Christiano Rm MD Referring Provider:: Brayan Batista MD . Sedation:: MAC sedation Procedure:: Patient history was obtained and appropriate physical examination was performed. Patient's medications and allergies were reviewed. Informed consent was obtained after explaining the benefits, alternatives, and risks of the procedure including, but not limited to, bleeding, perforation, missed lesions, and adverse reaction to anesthesia medications. Patient was transported to endoscopy procedure room. Patient was connected to monitoring devices. Throughout the procedure the patient's blood pressure, pulse, and oxygen saturations were monitored continuously. Patient identification and planned procedure were verified by the staff. Patient was positioned in lateral decubitus position. Digital anorectal exam was performed. Olympus endoscope was inserted via the anus. Stricture was noted about 10 to 12 cm from the anal verge. Endoscope was able to be advanced through the stenosis and into the descending colon near the splenic flexure at which point some stool was encountered. However distal to the splenic flexure colon was completely clean. Endoscope was withdrawn to proximal to the stricture. 15 to 18 mm balloon was inserted and sequential dilatation was performed to 18 mm. This was then removed and replaced with the 18 to 20 mm guidewire balloon. Sequential dilatation was performed to 18 mm to 19 mm and then ultimately to 20 mm. Stricture was patent. There is some minor oozing from the stricture line after dilatation and suction was applied for few minutes which resulted in good hemostasis. Endoscope was withdrawn. . Findings:: Benign-appearing anastomotic stricture proximal rectum Recommendations:: Recommend repeat sigmoidoscopy with dilatation in a few months, biopsies if needed. Complications:: None immediately apparent Estimated blood obtained (mL): 3 Colonoscopy Component Colonoscopy Component Was a colonoscopy performed during today's procedure?: No
[2024-07-08 12:26] VITALS: BP 161/85; PULSE 64; RESP 18; O2SAT 100
[2024-07-08 12:36] VITALS: BP 169/91; PULSE 63; RESP 18; O2SAT 99
[2024-07-08 12:46] VITALS: BP 160/82; PULSE 63; RESP 18; O2SAT 98
== END 2024-07-08 12:46 | disposition home or self-care (01) ==
PROVIDERS: PCP Family Medicine; Visit Provider Surgery
PROC: 0DJD8ZZ Inspection of Lower Intestinal Tract, Via Natural or Artificial Opening Endoscopic (ICD-10-PCS; CPT 45330; principal; 2024-07-08 11:30)
DX: K62.4 Stenosis of anus and rectum (principal)
CPT/HCPCS: 45340; C1726; J7120

== ENCOUNTER 2024-07-13 13:17 | Outpatient (POV) | payer MEDICARE, SELFPAY ==
[2024-07-13 13:37] VITALS: BP 150/72; PULSE 61; RESP 16; O2SAT 98; BMI 19.8
--- NOTE | 2024-07-13 14:09 | A.OFFVIS_ITS ---
[facility] Disclaimer: The information contained in this section may have been updated after the patient was seen, as this information can be updated by other users. Medical History History of gastroesophageal reflux (GERD) History of cataract Sarcoma Tremor Stroke Colon cancer Seizure disorder 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 occupational exposures/hazards: No caffeine: Yes PM Subjective & Objective Subjective Subjective:: Patient is a pleasant 84-year-old male who presents today for follow-up of bilateral SI injections. Today he rates his pain a 6 out of 10. He states that he had some improvement on the right however the left seem to make no difference whatsoever. He denies any new injury or trauma. He does state that he still has the chronic pain more prominent on the left side into his buttocks area. Patient states there is 1 specific spot along the left side is very tender to touch. Patient is interested in any help we may be able to provide as it does interfere with his ability perform activities of daily living such as cooking and cleaning. Patient has been prescribed compounded cream in the past with minimal improvement and is currently managed with gabapentin from his PCP. His [place] has been reviewed and is appropriate. Review of Systems: General: No recent weight changes, no fever, no sleep disturbances Respiratory: No cough, no shortness of air, no recurring pulmonary infections Cardiovascular/peripheral vascular: No chest pain, no palpitations, no edema, no shortness of breath Gastrointestinal: No new onset incontinence, normal bowel movements reported Genitourinary: No new onset incontinence Musculoskeletal: Left buttocks pain Psychiatric: [Normal mood/affect] Neurological: [Denies weakness in extremities], [denies balance issues] Pain at rest (0-10 scale): 6 Objective Objective:: Physical Exam: General: Alert and oriented x3, no acute distress, pleasant and cooperative Lungs: Respirations even and unlabored, symmetrical chest expansion Eyes: PERRL Musculoskeletal: Flexion and extension of lumbar [spine] somewhat guarded secondary to pain, [antalgic gait noted] point tenderness along left piriformis muscle Neurological: Speech clear, no gross sensory deficit Has patient had previous pain injection?: Yes Percent improvement in pain since last injection: 25% Conservative treatment options previously tried: Home exercise plan Length of treatment: Longer than 12 weeks Meds Home Medications and Allergies Home Medications ?Medication ?Instructions ?Recorded ?Confirmed ?Type atorvastatin 40 mg tablet 20 mg PO DAILY Cholesterol 02/22/19 07/13/24 History lisinopril 10 mg tablet 10 mg PO DAILY Hypertension 02/20/20 07/13/24 History amlodipine 5 mg tablet 5 mg PO DAILY Hypertension 10/25/20 07/13/24 History metoprolol succinate 25 mg 25 mg PO DAILY Hypertension 05/14/21 07/13/24 History tablet,extended release 24 hr promethazine 25 mg tablet 25 mg PO Q6H PRN nausea and 08/06/23 07/13/24 Rx vomiting #20 tabs gabapentin 300 mg capsule 2,100 mg (7 x 300 mg) PO DAILY 02/09/24 07/13/24 Rx Neuropathy, seizures #210 caps omeprazole magnesium 20 mg 20 mg PO DAILY GERD 03/03/24 07/13/24 History tablet,delayed release duloxetine 60 mg capsule,delayed 60 mg PO BID #60 caps 03/24/24 07/13/24 Rx release New Prescriptions to Start Prescriptions: Allergies Allergy/AdvReac Type Severity Reaction Status Date / Time No Known Allergies Allergy Verified 07/08/24 11:19 Assessment and Plan *Assessment and plan (1) Piriformis syndrome of left side: Status: Acute Category: Medical Code(s): G57.02 - Lesion of sciatic nerve, left lower limb (2) Myofascial pain on left side: Status: Acute Category: Medical Code(s): M79.18 - Myalgia, other site Plan Patient is experiencing significant pain and tenderness along his left piriformis muscle. I did review over with the patient that he may benefit from trigger point injection at this location. Risk and benefits were discussed with the patient and he would like to proceed forward with this plan of care. Patient has had this present for longer than 3 months unrelated to any specific trauma or injury. He did state that he has a lot of trouble when he is seated for prolonged periods due to the constant pain in that spot. Patient will be scheduled for a left piriformis muscle injection. These will be done without fluoroscopic guidance or ultrasound. I will also send in a 14-day supply of baclofen 5 mg 3 times daily. Patient has been instructed to contact the clinic with any concerns before the next appointment. Dr. Jimenez has reviewed this note and agrees with this plan of care. This note was dictated using voice recognition software and make contain errors or omissions. All injections are used with Lidocaine, Bupivacaine and Depo Medrol. Occasionally urine drug screen is needed to verify patient's compliance with our office pain contract. This is ordered based off specific treatments related to chronic pain with the potential to abuse certain medications.
== END 2024-07-13 23:59 | disposition home or self-care (01) ==
PROVIDERS: PCP Family Medicine; Visit Provider Nurse Practitioner Family
DX: G57.02 Lesion of sciatic nerve, left lower limb (principal); M79.18 Myalgia, other site; Z73.89 Other problems related to life management difficulty
CPT/HCPCS: 99212; G0463

== ENCOUNTER 2024-08-09 11:20 | Day surgery (SDC) | payer MEDICARE, SELFPAY ==
[2024-08-09 11:35] VITALS: BP 136/76; PULSE 88; RESP 18; TEMP 36.8; O2SAT 97; BMI 21.1
[2024-08-09 11:49] VITALS: BP 152/92; PULSE 87; RESP 18; O2SAT 96
[2024-08-09] MEDS: LIDOCAINE 1% 5ML PF VIAL 5 ML (11:49)
[2024-08-09] MEDS: BUPIVACAINE 0.25% 10ML INJ 25 MG IJ (11:49)
[2024-08-09] MEDS: methylPREDNISolone ACETATE 80MG/ML VIAL 80 MG (11:49)
[2024-08-09 11:50] VITALS: BP 152/92; PULSE 87; RESP 18; O2SAT 96
--- NOTE | 2024-08-09 11:52 | EXP.PAIN.PRO ---
Procedure Date: 08/09/24 Time: 11:40 Anesthesiologist:: Darell James CRNA Complications:: None Pre-procedure Diagnosis:: Left piriformis syndrome. Left sacroiliitis. Degenerative disc lumbar spine multilevels. Lumbar radiculopathy. Lumbar spondylosis. Multilevel lumbar facet arthropathy. Post-procedure Diagnosis:: Same. Indications for Procedure:: Patient is a very pleasant 84-year-old very active male that comes our clinic today for left piriformis injection of cortisone and local anesthetic. Patient describes left buttock pain as constant, dull, sharp, stabbing. Patient has responded well to left sacroiliac joint injections of cortisone in the past. He rates his pain 7/10. Procedure Details:: Details of procedure explained to the patient. Patient taken to speedy room placed in the prone position. The area over the left buttock was cleaned using chlorhexidine as a cleansing solution. Using fluoroscopy guidance and a 3 and half inch 22-gauge spinal needle the left piriformis muscle was accessed with ease. After negative aspiration 5 cc of 1% lidocaine +40 mg of Depo-Medrol was injected incrementally. Patient tolerated procedure without difficulty. No complications. Plan and Disposition:: Patient was discharged without incident.
[2024-08-09 11:56] VITALS: BP 146/77; PULSE 82; RESP 18; O2SAT 98
== END 2024-08-09 11:57 | disposition home or self-care (01) ==
PROVIDERS: PCP Family Medicine; Visit Provider Nurse Anesthetist, Certified Registered
DX: G57.02 Lesion of sciatic nerve, left lower limb (principal); M46.1 Sacroiliitis, not elsewhere classified; M51.16 Intervertebral disc disorders with radiculopathy, lumbar region; M47.26 Other spondylosis with radiculopathy, lumbar region
CPT/HCPCS: 20552; 77002; J1010

== ENCOUNTER 2024-08-17 10:07 | Emergency (ER) | payer MEDICARE, SELFPAY ==
[2024-08-17] VITALS (13 sets, daily range): BP systolic 106–191; BP diastolic 80–113; PULSE 66–99; RESP 15–18; TEMP 36.4–36.8; O2SAT 89–99; BMI 19.8
[2024-08-17 10:42] LABS: Coronavirus 19, PCR Not Detected (NotDetected); Influenza A, PCR Not Detected (NotDetected); Influenza B, PCR Not Detected (NotDetected)
--- NOTE | 2024-08-17 10:52 | CT_ITS ---
FINAL REPORT TECHNIQUE: Axial CT images were performed through the head. Coronal reformatted images were submitted. This study was performed with techniques to keep radiation doses as low as reasonably achievable (ALARA). Individualized dose reduction techniques using automated exposure control or adjustment of mA and/or kV according to the patient's size were employed. CLINICAL HISTORY: severe LYLE, vomiting COMPARISON: 01/01/2024 FINDINGS: There is mild to moderate atrophy. Extensive patchy areas of decreased attenuation are noted in the deep white matter. Encephalomalacia is seen in the left parietal region, stable. There is no evidence of hemorrhage. There is no mass or edema identified. There is no abnormal extra-axial fluid seen. The paranasal sinuses are well aerated. IMPRESSION: No acute intracranial process. Changes of chronic ischemia. Stable encephalomalacia. Reviewed, Interpreted and Dictated by Sonny Alva MD Transcribed by Aliya Salcedo Authenticated and [facility]
--- NOTE | 2024-08-17 10:54 | XR_ITS ---
FINAL REPORT CLINICAL HISTORY: headache, general illness COMPARISON: 10/13/2022 FINDINGS: Films was obtained in lordotic position. The heart size is normal. Sternotomy wires are present. There is no focal infiltrate or edema. There is mild scarring in the right perihilar region. There are no pleural effusions. There is no pneumothorax. There is no osseous abnormality. IMPRESSION: No acute cardiopulmonary process Reviewed, Interpreted and Dictated by Sonny Alva MD Transcribed by Aliya Salcedo Authenticated and [facility][1]
--- NOTE | 2024-08-17 10:55 | PC.NURSE ---
PT TO CT
[2024-08-17] MEDS: ACETAMINOPHEN 1,000MG/100ML VIAL 1000 MG IV (10:58)
[2024-08-17 10:59] LABS: Basophils % 0.2 % (0.1-2.0); Hematocrit 46.1 % (42.0-52.0); Hemoglobin 15.8 g/dL (14.1-18.0); Lymphocytes # 0.3 K/mm3 (0.7-4.5); Lymphocytes % 3.4 % (10-50); Mean Corpuscular HGB Conc 34.3 g/dL (31.8-35.4); Mean Corpuscular Hemoglobin 31.3 pg (27.0-31.2); Mean Corpuscular Volume 91.5 fl (80-94); Monocytes # 0.4 K/mm3 (0.1-1.0); Monocytes % 4.6 % (1.7-9.3); Neutrophils # 8.3 K/mm3 (1.8-7.8); Neutrophils % 91.6 % (37.0-80.0); Platelet Count 203 K/mm3 (142-424); Red Blood Count 5.04 M/mm3 (4.60-6.20); Red Cell Distribution Width 12.3 % (11.5-17.5)
[2024-08-17] MEDS: LACTATED RINGERS 1000ML 1,000 ML 999 ML IV ×2 (10:59→13:21)
[2024-08-17] MEDS: MAGNESIUM SULFATE IN WATER 2 GM/50 ML PIGGYBACK IV (10:59)
[2024-08-17] MEDS: METOCLOPRAMIDE HCL 10MG/2ML VIAL 5 MG IVP (10:59)
[2024-08-17 11:04] LABS: MANUAL DIFFERENTIAL MANUAL DIFFERENTIAL (MANUAL DIFF)
[2024-08-17 11:06] LABS: Alanine Aminotransferase 24 U/L (12-78); Albumin Level 4.7 g/dl (3.5-5.0); Albumin/Globulin Ratio 1.7 (1.1-1.8); Alkaline Phosphatase 98 U/L (38-126); Anion Gap 12.3 mEq/L (5-15); Aspartate Amino Transferase 38 U/L (17-59); Bilirubin,Total 1.7 mg/dl (0.2-1.3); Blood Urea Nitrogen 26 mg/dl (9-20); Calcium 9.8 mg/dl (8.4-10.2); Carbon Dioxide 28 mmol/L (22.0-30.0); Chloride 101 mmol/L (98-107); Creatinine Clearance Estimated 45 mL/min (50-200); Estimated Glomerular Filt Rate 107 ml/min (>60); GFR (African American) 130 ML/MIN (>60); Globulin 2.8 g/dL (1.3-3.2); Glucose 151 mg/dl (74-100); Potassium 4.3 mmoL/L (3.5-5.1); Sodium 137 mmol/L (136-145); Total Protein,Serum 7.5 g/dl (6.3-8.2)
--- NOTE | 2024-08-17 11:06 | HMH.EDGENADL ---
Discharge Plan Disposition Patient Disposition: Xfer Short-Term Hosp Condition: Fair Prescriptions Prescriptions: No Action lisinopril 10 mg tablet 10 mg PO DAILY amlodipine 5 mg tablet 5 mg PO DAILY metoprolol succinate 25 mg tablet extended release 24 hr 25 mg PO DAILY gabapentin 300 mg capsule 2,100 mg PO DAILY MDD 2100 mg Qty: 210 5RF Rx Instructions: 900 mg, (3 caps) p.o. every morning and 1200 mg p.o. nightly, (4 caps) duloxetine 60 mg capsule,delayed release(DR/EC) 60 mg PO BID Qty: 60 5RF atorvastatin 40 MG tablet 20 mg PO DAILY omeprazole magnesium 20 mg tablet,delayed release (DR/EC) 20 mg PO DAILY promethazine 25 mg tablet 25 mg PO Q6H PRN (Reason: nausea and vomiting) Qty: 20 0RF baclofen 5 mg tablet 5 mg PO TID Qty: 42 0RF Referrals Follow up/Referrals: Beltran Batista MD [Primary Care Provider] - See instructions Clinical Impressions Clinical Impression: Acute intractable headache, Vomiting, Abdominal pain Stand Alone Forms Stand Alone Forms: Transfer Record - ED Print Language Print Language: Peruvian Discharge ED Provider: Naomie Daniel General Adult HPI General Chief complaint: Weakness Stated complaint: vomiting, weakness Time Seen by Provider: 08/17/24 10:38 Mode of Arrival: Wheelchair Source of Information: Patient and Spouse Limitations: No Limitations Description of Symptoms (Recalled from ER Triage Doc. by RN): pt reports waking up sick yesterday AM. pt c/o weakness, LYLE, RLQ pain, N/V, decreased PO intake, and cold sweats. pt states his LYLE is 9/10 and throbbing in nature. pt states the RLQ pain is a 9/10 and he is tender to palpation. pt has a hx of a herman, neuropathy, HTN, and open heart surgery. pt also reports a partial colon resection for cancer in 1997. History of Present Illness HPI narrative: This patient is an 84-year-old male with a history of hypertension, prior CVA, seizure disorder, colon cancer, and GERD presenting to the emergency department for evaluation with concern for severe headache. Patient does not provide other history, stating only I need something for my head and holding his head in pain. His states that he was sick yesterday in the morning, with nausea, vomiting, decreased oral intake, and cold sweats. She states that he then developed headache, which seems significantly worse today. Patient told triage nurse about right lower quadrant abdominal pain, but patient did not disclose this to me. He only kept repeating to me I need something for my head. He was well prior to yesterday. No recent falls. denies use of aspirin or blood thinners. Related Data Home Medications ?Medication ?Instructions ?Recorded ?Confirmed atorvastatin 40 mg tablet 20 mg PO DAILY Cholesterol 02/22/19 08/09/24 lisinopril 10 mg tablet 10 mg PO DAILY Hypertension 02/20/20 08/09/24 amlodipine 5 mg tablet 5 mg PO DAILY Hypertension 10/25/20 08/09/24 metoprolol succinate 25 mg 25 mg PO DAILY Hypertension 05/14/21 08/09/24 tablet,extended release 24 hr omeprazole magnesium 20 mg 20 mg PO DAILY GERD 03/03/24 08/09/24 tablet,delayed release Previous Rx's ?Medication ?Instructions ?Recorded promethazine 25 mg tablet 25 mg PO Q6H PRN nausea and 08/06/23 vomiting #20 tabs gabapentin 300 mg capsule 2,100 mg (7 x 300 mg) PO DAILY 02/09/24 Neuropathy, seizures #210 caps duloxetine 60 mg capsule,delayed 60 mg PO BID #60 caps 03/24/24 release baclofen 5 mg tablet 5 mg PO TID #42 tabs 07/13/24 Allergies Allergy/AdvReac Type Severity Reaction Status Date / Time No Known Allergies Allergy Verified 08/17/24 10:46 [facility] Disclaimer: The information contained in this section may have been updated after the patient was seen, as this information can be updated by other users. Medical History History of gastroesophageal reflux (GERD) History of cataract Sarcoma Tremor Stroke Colon cancer Seizure disorder 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 occupational exposures/hazards: No caffeine: Yes Have you lived/traveled outside US in past 30 days?: No Contact w/someone who lives/traveled outside US past 30 days?: No Exposure to someone with infectious disease in past 14 days?: No Do you have a fever (greater than 100.4 F or 38 C)?: No Have you tested positive for COVID-19: No Exposed to someone with COVID-19 in past 14 days?: No Do you have a sore throat?: No Do you have a cough?: No Do you have any weakness?: Yes Do you have any diarrhea?: Yes Are you experiencing any unusual bleeding?: No Do you have any muscle aches/pain?: No Do you have any abdominal pain?: No Are you experiencing loss of taste or smell?: No Other Medical History Have you received the Flu Vaccine for this season: No Have you received the Pneumonia Vaccine: No ROS Obtained: Yes All systems reviewed & no additional complaints except as documented Physical Exam General General appearance: alert Comment: Uncomfortable appearing, holding his head in pain Head Head exam: atraumatic and normocephalic Eye Eye exam: Present normal appearance, PERRL and EOMI ENT ENT exam: Present normal exam, normal oropharynx, mucous membranes moist and normal external ear exam Neck Neck exam: Present normal inspection, full ROM and trachea midline; Absent tenderness Chest Chest inspection: Present normal inspection and symmetric chest wall rise; Absent tenderness Respiratory Respiratory exam: Present normal lung sounds bilaterally; Absent respiratory distress, wheezes, stridor or accessory muscle use Cardiovascular Cardiovascular exam: Present regular rate and normal rhythm Abdominal Exam Abdominal exam: Present soft; Absent distention, tenderness or guarding Extremities Exam Extremities exam: Present normal inspection, full ROM and normal capillary refill; Absent tenderness or edema Back Exam Back exam: Present normal inspection and full ROM; Absent tenderness Neurological Exam Neurological exam: Present alert, oriented X3 and CN II-XII intact; Absent motor sensory deficit Psychiatric Psychiatric exam: Present anxious Skin Skin exam: Present warm and dry Medical Decision Making Medical Records Medical records reviewed: Yes I reviewed the patient's medical records. Screening: Per USPSTF and CDC recommendations, given the prevalence of disease in our region, it is our hospital?s policy to screen for HIV and viral Hepatitis for all patients aged 18 and over and those with ongoing risk factors. [place] Inquiry Pt receiving controlled substance: No Vital Signs: 08/17/24 10:38 08/17/24 11:05 08/17/24 11:30 Temperature 97.5 F L Temperature Source Oral Pulse Rate 71 66 Pulse Rate [Left] 81 Respiratory Rate 16 Blood Pressure 190/89 H Blood Pressure [Right Arm] 183/96 H Blood Pressure Mean [Right Arm] 125 Blood Pressure Source [Right Arm] Automatic Cuff Blood Pressure Position [Right Arm] Sitting 02 Sat by Pulse Oximetry 99 98 98 Oxygen Delivery Method Room Air Room Air Room Air 08/17/24 12:00 08/17/24 12:15 08/17/24 12:30 Temperature Temperature Source Pulse Rate 74 76 83 Pulse Rate [Left] Respiratory Rate Blood Pressure 178/89 H 177/95 H Blood Pressure [Right Arm] Blood Pressure Mean [Right Arm] Blood Pressure Source [Right Arm] Blood Pressure Position [Right Arm] 02 Sat by Pulse Oximetry 98 98 99 Oxygen Delivery Method Room Air 08/17/24 12:45 08/17/24 13:00 08/17/24 13:01 Temperature Temperature Source Pulse Rate 81 85 87 Pulse Rate [Left] Respiratory Rate Blood Pressure 176/113 H Blood Pressure [Right Arm] Blood Pressure Mean [Right Arm] Blood Pressure Source [Right Arm] Blood Pressure Position [Right Arm] 02 Sat by Pulse Oximetry 97 96 89 L Oxygen Delivery Method 08/17/24 13:30 Temperature Temperature Source Pulse Rate 86 Pulse Rate [Left] Respiratory Rate Blood Pressure 154/91 H Blood Pressure [Right Arm] Blood Pressure Mean [Right Arm] Blood Pressure Source [Right Arm] Blood Pressure Position [Right Arm] 02 Sat by Pulse Oximetry 97 Oxygen Delivery Method Room Air Lab Data Lab results reviewed: Yes I reviewed the patient's lab results. Lab Results 08/17/24 10:24: SARS-CoV-2 (PCR) Not detected, Influenza A Untype (PCR) Not detected, Influenza Type B (PCR) Not detected 08/17/24 10:32: WBC 9.0, RBC 5.04, Hgb 15.8, Hct 46.1, MCV 91.5, MCH 31.3 H, MCHC 34.3, RDW 12.3, Plt Count 203, MPV 11.0 H, Neut % (Auto) 91.6 H, Lymph % (Auto) 3.4 L, [place] % (Auto) 4.6, Eos % (Auto) 0.0 L, Baso % (Auto) 0.2, Neut # (Auto) 8.3 H, Lymph # (Auto) 0.3 L, [place] # (Auto) 0.4, Eos # (Auto) 0.0, Baso # (Auto) 0.0, PT 11.6, INR 1.06, APTT 25.6, Sodium 137, Potassium 4.3, Chloride 101, Carbon Dioxide 28, Anion Gap 12.3, BUN 26 H, Creatinine 0.70, Estimated Creat Clear 45, Estimated GFR 107, Est GFR ( Amer) 130, Glucose 151 H, Calcium 9.8, Total Bilirubin 1.7 H, AST 38, ALT 24, Alkaline Phosphatase 98, Troponin I 0.02, C-Reactive Protein 0.3, Total Protein 7.5, Albumin 4.7, Globulin 2.8, Albumin/Globulin Ratio 1.7, Lipase 91, HCV Ab KEVIN w/Rflx PCR Qn Negative, HIV Ag/Ab Combo Qual Negative 08/17/24 13:05: Urine Color Yellow, Urine Appearance Clear, Urine pH 6.5, Ur Specific [place] 1.025, Urine Protein Trace, Urine Glucose (UA) Negative, Urine Ketones Trace, Urine Blood Negative, Urine Nitrate Negative, Urine Bilirubin Negative, Urine Urobilinogen 0.2, Ur Leukocyte Esterase Negative, Urine RBC None, Urine WBC None, Ur Squamous Epith Cells Occasional, Urine Bacteria Trace 08/17/24 10:32 08/17/24 10:32 Orders (Tests/Meds): ED MEDICATIONS Generic Name Dose Route Start Last Admin Trade Name Freq PRN Reason Stop Dose Admin Lactated Ringer's 1,000 mls @ 999 mls/hr 08/17/24 13:17 08/17/24 13:21 Lactated Ringer's 1000 Ml Bag IV 08/17/24 14:17 999 mls/hr .Q1H1M ONE Administration Discontinued Medications Generic Name Dose Route Start Last Admin Trade Name Freq PRN Reason Stop Dose Admin Acetaminophen 1,000 mg 08/17/24 10:53 08/17/24 10:58 Acetaminophen 1,000mg/100ml Vial IV 08/17/24 10:54 1,000 mg ONCE ONE Administration Dexamethasone Sodium Phosphate 10 mg 08/17/24 14:00 08/17/24 14:04 Dexamethasone 4mg/Ml 1ml Vial IV 08/17/24 14:01 10 mg ONCE ONE Administration Droperidol 1.25 mg 08/17/24 13:05 08/17/24 13:15 Droperidol 5mg/2ml Vial IV 08/17/24 13:06 1.25 mg ONCE ONE Administration Droperidol 1.25 mg 08/17/24 14:02 08/17/24 14:04 Droperidol 5mg/2ml Vial IV 08/17/24 14:03 1.25 mg ONCE ONE Administration Lactated Ringer's 1,000 mls @ 999 mls/hr 08/17/24 10:53 08/17/24 10:59 Lactated Ringer's 1000 Ml Bag IV 08/17/24 11:53 999 mls/hr .Q1H1M ONE Administration Magnesium Sulfate 2 gm in 50 mls @ 50 mls/hr 08/17/24 10:53 08/17/24 10:59 Magnesium Sulfate 2gm/50ml Premix IV 08/17/24 11:52 50 mls/hr ONCE ONE Administration Iopamidol 155 ml 08/17/24 11:42 08/17/24 11:44 Iopamidol-370 (76%);100ml Bottle IV 08/17/24 11:43 155 ml ONCE ONE Administration Ketorolac Tromethamine 15 mg 08/17/24 11:58 08/17/24 12:04 Ketorolac 30mg/Ml Vial IV 08/17/24 11:59 15 mg ONCE ONE Administration Metoclopramide HCl 5 mg 08/17/24 10:53 08/17/24 10:59 Metoclopramide Hcl 10mg/2ml Vial IVP 08/17/24 10:54 5 mg ONCE ONE Administration Sodium Chloride 10 ml 08/17/24 11:42 08/17/24 11:44 Sodium Chloride 0.9% 10ml Syr (Rad Only) IV 08/17/24 11:43 10 ml ONCE ONE Administration Sodium Chloride 50 ml 08/17/24 11:42 08/17/24 11:44 0.9 % Sodium Chloride 50 Ml Vial IV 08/17/24 11:43 50 ml ONCE ONE Administration ORDERS Category Date Time Status CT abdomen pelvis w con Stat Cat Scan 08/17/24 11:[address] angio head Stat Cat Scan 08/17/24 11:[address] angio neck Stat Cat Scan 08/17/24 11:[address] head/brain wo con Stat Cat Scan 08/17/24 10:52 Completed CXR --portable [XR chest portable] Stat Exams 08/17/24 10:54 Completed C-Reactive Protein Stat Lab 08/17/24 10:32 Completed Complete Blood Count Auto Diff Stat Lab 08/17/24 10:32 Results Comprehensive Metabolic Panel Stat Lab 08/17/24 10:32 Completed ESR [Erythrocyte Sedimentation Rate] Stat Lab 08/17/24 10:32 Received Full Resp Panel w/COVID ([facility]) Routine Lab 08/17/24 10:24 Received HIV Combo Stat Lab 08/17/24 10:32 Completed Hepatitis C Ab Qual. W/ RFX Stat Lab 08/17/24 10:32 Completed Lipase Stat Lab 08/17/24 10:32 Completed PT INR [Prothrombin Time INR] Stat Lab 08/17/24 10:32 Completed PTT [Activated Partial Thrombo Time] Stat Lab 08/17/24 10:32 Completed Rapid PCR Covid and Flu A/B Stat Lab 08/17/24 10:24 Completed Trop I [Troponin I] Stat Lab 08/17/24 10:32 Completed Troponin I Q3H Lab 08/17/24 14:00 Ordered Troponin I Q3H Lab 08/17/24 17:00 Ordered UA [Urinalysis and Microscopic] Stat Lab 08/17/24 13:05 Completed ECG Data Tracing #1: I reviewed this ECG and interpreted as documented below: Sinus rhythm with a ventricular of 71 bpm. Left bundle branch block. No STEMI. ECG initial impression date: 08/17/24 ECG initial impression time: 11:10 Medical Decision Narrative: In summary, this patient is a 84-year-old male presenting to the Emergency Department for evaluation of severe headache. He also has had nausea, vomiting, and abdominal pain. Differential diagnoses considered include but are not limited to viral syndrome, gastroenteritis, colitis, appendicitis, intracranial hemorrhage, intracranial mass. Ruling out the most morbid conditions drove assessment. It should be noted patient's history includes history of colon cancer, history of prior CVA, hypertension, seizure disorder which may or may not be at goal therapy. This complicates all aspects of care by increasing patient's risk for morbidity. I reviewed patient's past medical records and noted previous evaluation 01/01/2024 with concern for L vertebral artery occlusion. On exam, the patient is very uncomfortable appearing, holding his head repeatedly asking for something for his head. He does not have any focal neurologic deficits, but his exam and history are very concerning, especially given that he lacks a history of headaches. It is possible this is all secondary to dehydration versus acute illness, but I am worried about intracranial pathology. Given this, patient was taken for stat head CT without contrast. Workup included CBC, CMP, lipase, troponin, urinalysis, viral swab, EKG. I also decided to obtain CT angiograms of the head and neck as well as CT abdomen pelvis with IV contrast for further assessment given his symptoms. Prior to exclusion of intracranial hemorrhage, he was given a bolus of IV fluids, IV Reglan, IV magnesium, and IV acetaminophen for symptomatic improvement of headache. I avoided NSAIDs initially in case of potential bleed. I independently interpreted CT scan of the head without contrast prior to the radiologist read and noted no obvious large intracranial hemorrhage. Please see their read for final interpretation. Labs were obtained that demonstrated reassuring CBC with no significant leukocytosis or anemia, chemistry demonstrates mildly elevated BUN and a bilirubin of 1.7 but no other obvious acute concerns. He is negative for COVID and flu. Urinalysis is not concerning for infection. I went ahead and obtain CT angiograms of the head and neck as well as CT abdomen and pelvis with IV contrast, and I also added on a full respiratory panel. On reassessment, patient had no improvement after administration of interventions above. He states that his headache is still severe, and he still vomiting. I initiate IV Toradol and IV droperidol at 1.25 mg. This also did not help, and he stated the pain is still severe. He states he has had no improvement at all. I administered another 1.25 mg of droperidol as well as IV dexamethasone. I also administered more fluids. In total, he has had 2 L of IV fluids, 2 g of IV magnesium, 15 mg of IV Toradol, 10 mg of IV dexamethasone, 1 g of IV acetaminophen, 5 mg of IV Reglan, and 2.5 mg of IV droperidol. He was monitored on cardiac telemetry after receiving IV droperidol with no significant dysrhythmia. He still has had no improvement in his headache and states he still feels awful and is begging for pain medication. Given his severe intractable pain, I called and had an interactive discussion with Dr. Gore in the transfer center at [facility] who brought on neurosurgery Dr. Leblanc on the line. They advised that they would recommend transfer to [facility] ED because the patient is a cancer patient there for further workup of his severe intractable headache, including MRI and possible LP to exclude occult bleed. Prior to transfer, blood pressure spiked from 150 systolic to 190s. Given this, I did give 10 mg of IV hydralazine. Patient is agreeable to transfer to for higher level of care with both neurology and neurosurgery for further evaluation and management of the severe intractable headache given we do not have neurology here. EMS transport was arranged, and he was transferred in stable condition. Critical Care Critical Care Time Critical Care Time: Yes Attestation: On 08/17/24, the high probability of a clinically significant, sudden or life threatening deterioration of the following system(s) required my full and direct attention, intervention and personal management. The time I documented below is in addition to time spent performing reported procedures but includes the following listed in this critical care notation. Total Time Total Critical Care Time: 45
[2024-08-17 11:07] LABS: Activated Partial Thrombo Time 25.6 seconds (22.5-28.5); INR 1.06 (0.9-1.1); Prothrombin Time 11.6 seconds (9.2-12.1)
--- NOTE | 2024-08-17 11:08 | ECG_ITS ---
APPROVED REPORT Exam: Resting ECG HR:71 bpm ECG Measurements Heart Rate 71 AXES IL 163 P 74 QRSd 177 QRS -14 QT 440 T 114 QTc 463 Conclusion SINUS RHYTHM LEFT BUNDLE BRANCH BLOCK [120+ ms QRS DURATION, 80+ ms Q/S IN V1/V2, 85+ ms R IN I/aVL/V5/V6] ABNORMAL ECG No STEMI Electronically signed by : TERRELL ACEVEDO, 08/17/2024 15:32:01
--- NOTE | 2024-08-17 11:11 | CT_ITS ---
FINAL REPORT TECHNIQUE: thin section axial CT with and without IV contrast supplemented with multiplanar 3-D reconstruction of the head. This study was performed with techniques to keep radiation doses as low as reasonably achievable, (ALARA)individualized dose reduction techniques using automated exposure control or adjustment of mA and/or kV according to the patient's size were employed. CLINICAL HISTORY: vomiting, severe headache COMPARISON: 01/01/2024. FINDINGS: There is tortuosity of the basilar artery. The cranial circulation is otherwise unremarkable. There is no significant stenosis, aneurysm or occlusion. IMPRESSION: No evidence of significant stenosis or major branch occlusion. Reviewed, Interpreted and Dictated by Sonny Alva MD Transcribed by Raisa Plummer Authenticated and . [facility]
--- NOTE | 2024-08-17 11:11 | CT_ITS ---
FINAL REPORT TECHNIQUE: After the administration of intravenous contrast, axial images were obtained through the abdomen and pelvis by computed tomography. The study was performed with techniques to keep radiation dose as low as reasonably achievable, (ALARA). Individual dose reduction techniques using automated exposure control or adjustment of mA and/or kV according to the patient's size were employed. CLINICAL HISTORY: RLQ pain/N/V COMPARISON: 08/06/2023 FINDINGS: Abdomen: There is streak artifact from an aortic valve. There is scarring at the right base. The liver parenchyma is homogeneous. The gallbladder is sent. The spleen, pancreas, adrenals and kidneys appear unremarkable. There is dense vascular calcification of the abdominal aorta and iliac vessels. There is no free fluid or adenopathy. Pelvis: The appendix is not identified. There are multiple diverticula, particularly along the left anterior border of the urinary bladder. There may be some abnormal bladder wall thickening. Findings are similar to previous. There are postoperative changes of the rectum. There is no free fluid or adenopathy. There are moderate to advanced changes of degenerative disc disease at L4-5 and L5-S1. IMPRESSION: Distended urinary bladder with multiple diverticula and potential wall thickening. Urologic evaluation is recommended. Cystoscopy may be of value. Reviewed, Interpreted and Dictated by Sonny Alva MD Transcribed by Raisa Plummer Authenticated and [facility]
--- NOTE | 2024-08-17 11:11 | CT_ITS ---
FINAL REPORT TECHNIQUE: NASCET technique utilized for stenosis evaluation. This study was performed with techniques to keep radiation doses as low as reasonably achievable, (ALARA). Individualized dose reduction techniques using automated exposure control or adjustment of mA and/or kV according to the patient's size were employed. CLINICAL HISTORY: vomiting, severe headache COMPARISON: 01/01/2020 FINDINGS: Streak artifact is seen from multiple median sternotomy wires. RIGHT CAROTID: There is moderate vascular calcification of the proximal right ICA. There is no segmental stenosis. LEFT CAROTID: There is moderate vascular calcification of the proximal left ICA. There is no segmental stenosis. VERTEBRALS: There is complete occlusion of the left vertebral artery. The right vertebral artery is widely patent and dominant. No significant stenosis is present. There is retrograde flow into the left posterior/inferior cerebellar artery. There is no segmental stenosis. IMPRESSION: Complete occlusion of the left vertebral artery. Retrograde flow into the left posterior/inferior cerebral artery. Reviewed, Interpreted and Dictated by Sonny Alva MD Transcribed by Raisa Plummer Authenticated and . [facility]
[2024-08-17 11:17] LABS: Troponin I 0.02 ng/ml (0.00-0.034)
--- NOTE | 2024-08-17 11:32 | PC.NURSE ---
pt to CT via stretcher
[2024-08-17] MEDS: 0.9 % SODIUM CHLORIDE 50 ML VIAL IV (11:44)
[2024-08-17] MEDS: SODIUM CHLORIDE 0.9% 10ML SYR (RAD ONLY) 10 ML IV (11:44)
[2024-08-17] MEDS: IOPAMIDOL-370 (76%);100ML BOTTLE 155 ML IV (11:44)
--- NOTE | 2024-08-17 12:03 | PC.NURSE ---
I rounded on the pt and reminded him that we still need a urine sample. no new complaints at this time. call rosa in reach.
[2024-08-17] MEDS: KETOROLAC 30MG/ML VIAL 15 MG IV (12:04)
[2024-08-17 12:21] LABS: Lipase 91 U/L (23-300)
[2024-08-17 13:05] LABS: HIV Combo NEGATIVE (Negative)
[2024-08-17 13:10] LABS: Microscopic, Urine URINE MICROSCOPIC (MICROSCOPIC)
[2024-08-17 13:12] LABS: Appearance,Urine CLEAR (Clear); Bilirubin,Urine Negative (Negative); Blood, Urine Negative (Negative); Color,Urine YELLOW (Yellow); Glucose,Urine (UA) Negative (Negative); Ketones,Urine TRACE (Negative); Leukocyte Esterase,Urine Negative (Negative); Nitrate,Urine Negative (Negative); PH,Urine 6.5 (5.0-8.5); Protein,Urine TRACE (Negative); Specific Gravity, Urine 1.025 (1.005-1.030); Urobilinogen,Urine 0.2 EU/dl (0.2)
[2024-08-17 13:12] LABS: Hepatitis C Ab Qual. W/ RFX NEGATIVE (Negative)
[2024-08-17] MEDS: droPERidol 5MG/2ML VIAL 1.25 MG IV ×2 (13:15→14:04)
--- NOTE | 2024-08-17 13:20 | PC.NURSE ---
[facility] CONTACTED AT THIS TIME FOR NEURO CONSULT, WILL CALL BACK
--- NOTE | 2024-08-17 13:39 | PC.NURSE ---
Spoke with Teodora in lab regarding full respiratory swab add on
[2024-08-17 13:44] LABS: Bacteria,Urine Trace /lpf; Squamous Epithelial Cell,Urine Occasional #/hpf (0-5)
[2024-08-17 13:48] LABS: Adenovirus,PCR Not Detected (NotDetected); Bordetella Pertussis Not Detected (NotDetected); Chlamydophila Pneumoniae, PCR Not Detected (NotDetected); Coronavirus 19, PCR Not Detected (NotDetected); Coronavirus 229E Not Detected (NotDetected); Coronavirus NL63 Not Detected (NotDetected); Coronavirus OC43 Not Detected (NotDetected); Coronovirus HKU1,PCR Not Detected (NotDetected); Human Metapneumovirus Not Detected (NotDetected); Influenza A, PCR Not Detected (NotDetected); Influenza AH1, 2009 Not Detected (NotDetected); Influenza AH1, PCR Not Detected (NotDetected); Influenza AH3,PCR Not Detected (NotDetected); Influenza B, PCR Not Detected (NotDetected); Mycoplasma Pneumoniae, PCR Not Detected (NotDetected); Parainfluenza 1, PCR Not Detected (NotDetected); Parainfluenza 2, PCR Not Detected (NotDetected); Parainfluenza 3, PCR Not Detected (NotDetected); Parainfluenza 4, PCR Not Detected (NotDetected); Respiratory Syncytial Virus Not Detected (NotDetected); Rhinovirus/Enterovirus Not Detected (NotDetected)
--- NOTE | 2024-08-17 13:51 | PC.NURSE ---
Dr. Daniel at for update on POC. Pt sitting up in a wheelchair for comfort at this time.
--- NOTE | 2024-08-17 13:52 | PC.NURSE ---
Mago in Radiology aware to burn imaging disc.
[2024-08-17 13:55] LABS: C-Reactive Protein 0.3 mg/L (0-4)
[2024-08-17] MEDS: DEXAMETHASONE 4MG/ML 1ML VIAL 10 MG IV (14:04)
[2024-08-17] MEDS: HYDRALAZINE 20MG/ML VIAL 10 MG IV (14:13)
--- NOTE | 2024-08-17 14:15 | PC.NURSE ---
REPORT CALLED TO HENRIETTA HOWE AT ER
[2024-08-17 14:45] LABS: Troponin I 0.02 ng/ml (0.00-0.034)
[2024-08-17 15:43] LABS: Lymphocytes % 3 % (10-50); Monocytes % 5 % (2-9); Neutrophils % 92 % (42-76); Total Cells Counted 100
[2024-08-17 15:44] LABS: Platelet Estimate Normal; RBC Morphology Normal
[2024-08-17 16:01] LABS: Erythrocyte Sedimentation Rate 34 mm/hr (0-20)
== END 2024-08-17 14:59 | disposition short-term general hospital (02) ==
PROVIDERS: Emergency Provider Emergency Medicine; PCP Family Medicine
DX: R51.9 Headache, unspecified (principal); R11.2 Nausea with vomiting, unspecified; R10.31 Right lower quadrant pain; R53.1 Weakness; R63.8 Other symptoms and signs concerning food and fluid intake; R61 Generalized hyperhidrosis
CPT/HCPCS: 70450; 70496; 70498; 71045; 74177; 80053; 81001; 83690; 84484; 85007; 85025; 85027; 85610; 85651; 85730; 86140; 86803; 87389; 87633; 87636; 93005; 96361; 96365; 96374; 96375; 99291; J0131; J0360; J1100; J1790; J1885; J2765; J3475; J7120; Q9967

== ENCOUNTER 2024-08-30 15:37 | Emergency (ER) | payer MEDICARE, SELFPAY ==
[2024-08-30] VITALS (9 sets, daily range): BP systolic 122–178; BP diastolic 80–95; PULSE 81–93; RESP 12–18; TEMP 36.9–37.1; O2SAT 93–96; BMI 19.5
--- NOTE | 2024-08-30 16:19 | PC.NURSE ---
DR. Marie at BS for pt eval
--- NOTE | 2024-08-30 16:23 | CT_ITS ---
PROCEDURE INFORMATION: Exam: CT Abdomen And Pelvis With Contrast Exam date and time: 08/30/2024 4:51 PM Age: 84 years old Clinical indication: Other: N/v/d; Abdominal pain; Additional info: Diffuse abd pain n/v/d TECHNIQUE: Imaging protocol: Computed tomography of the abdomen and pelvis with contrast. Radiation optimization: All CT scans at this facility use at least one of these dose optimization techniques: automated exposure control; mA and/or kV adjustment per patient size (includes targeted exams where dose is matched to clinical indication); or iterative reconstruction. Contrast material: ISOVUE; Contrast volume: 75 ml; Contrast route: IV; COMPARISON: CR XR ACUTE ABDOMEN SERIES 04/02/2021 5:18 PM FINDINGS: Lungs: Scattered areas of bronchial wall thickening which are likely chronic inflammatory. A few areas of subpleural reticulation are noted, nonspecific. Parenchymal consolidations at the bases could be on the basis of atelectasis but underlying infection is not completely excluded. Heart: The patient is status post transcatheter aortic valve replacement. Liver: Normal. Gallbladder and biliary ducts: The patient is status post cholecystectomy. There is dilation of the intrahepatic biliary ducts most likely reflecting post cholecystectomy effect. Pancreas: Normal. Spleen: Normal. Adrenal glands: The adrenal glands appear normal. Kidneys and ureters: There is [id number] bilateral hydroureteronephrosis. Stomach and bowel: The patient is status post prior partial colectomy. Appendix: No evidence of appendicitis. Intraperitoneal space: Unremarkable. Vasculature: There is atherosclerotic disease of the visualized aorta and its major branch vessels. Lymph nodes: No lymphadenopathy. Urinary bladder: There is moderate distention of the urinary bladder. There are numerous small bladder diverticula. There is a calcification in the dependent left urinary bladder. Reproductive: No acute process. Bones/joints: There is diffuse degenerative disease of the visualized osseous structures. Soft tissues: Small subxiphoid hernia containing a loop of nonobstructed bowel. Prior mesh left inguinal hernia repair. IMPRESSION: 1. Parenchymal consolidations at the bases could be on the basis of atelectasis but underlying infection is not completely excluded. 2. Significant distension of the urinary bladder with multiple diverticula and associated upstream hydroureteronephrosis, please correlate for bladder outlet obstruction. 3. No bowel obstruction identified.
[2024-08-30] MEDS: ONDANSETRON 4MG/2ML VIAL 4 MG IV (16:29)
[2024-08-30] MEDS: LACTATED RINGERS 1000ML 1,000 ML 999 ML IV (16:29)
--- NOTE | 2024-08-30 16:31 | HMH.EDGENADL ---
Discharge Plan Disposition Patient Disposition: Home, Self-Care Prescriptions Prescriptions: New tamsulosin [Flomax] 0.4 mg capsule 0.4 mg PO DAILY 7 Days Qty: 7 0RF ondansetron 4 mg tablet,disintegrating 4 mg PO Q6H PRN (Reason: nausea and vomiting) 5 Days Qty: 20 0RF No Action lisinopril 10 mg tablet 10 mg PO DAILY amlodipine 5 mg tablet 5 mg PO DAILY metoprolol succinate 25 mg tablet extended release 24 hr 25 mg PO DAILY gabapentin 300 mg capsule 2,100 mg PO DAILY MDD 2100 mg Qty: 210 5RF Rx Instructions: 900 mg, (3 caps) p.o. every morning and 1200 mg p.o. nightly, (4 caps) duloxetine 60 mg capsule,delayed release(DR/EC) 60 mg PO BID Qty: 60 5RF atorvastatin 40 MG tablet 20 mg PO DAILY omeprazole magnesium 20 mg tablet,delayed release (DR/EC) 20 mg PO DAILY baclofen 5 mg tablet 5 mg PO TID Qty: 42 0RF Referrals Follow up/Referrals: Beltran Batista MD [Primary Care Provider] - See instructions Cody Castillo MD [Staff Physician] - See instructions Activity Restrictions/Add. Instructions Additional Instructions/Restrictions: No emergent or surgical pathology found on your CAT scan or blood work today. However there was significant bladder distention with associated hydronephrosis/swelling of your kidneys likely secondary to a bladder outlet obstruction possibly from your prostate. I have given you medication that should help relax your prostate while you keep the Spence catheter in please follow-up with your urologist within 1 week to have a trial of urination to see if you can get the Spence catheter out also for the urologist to look further into the cause of these findings. Clinical Impressions Clinical Impression: Nausea vomiting and diarrhea, Abdominal pain, diffuse, Bladder outlet obstruction, Bilateral hydronephrosis, Hematuria Instructions Patient Instructions: DI for Diarrhea and Traveler's Diarrhea -- Adult, DI for Diarrhea and Traveler's Diarrhea -- Child, DI for Nausea -- Adult, DI for Nausea -- Child Print Language Print Language: [place] Discharge ED Provider: Jass Marie General Adult HPI General Chief complaint: Nausea/Vomiting/Diarrhea Stated complaint: vomiting,nausea,diarrhea Time Seen by Provider: 08/30/24 16:19 Mode of Arrival: Wheelchair Source of Information: Patient, Spouse and Medical Record Limitations: No Limitations Description of Symptoms (Recalled from ER Triage Doc. by RN): Pt c/o nausea with vomiting and diarrhea for 3 days. States he has a hx of colon cancer (20+ yr ago). He reports his vomit and stool is black/green & watery. States that he has felt weak and increased in chronic low back pain. He was recently at [facility] on 08/17/24 for similar complaints. 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 States that he has had too numerous to count diarrheal episodes and has been having incontinence having to wear a diaper. No blood in the stool no melena from historical standpoint no hematemesis. No fevers or chills. Related Data Home Medications ?Medication ?Instructions ?Recorded ?Confirmed atorvastatin 40 mg tablet 20 mg PO DAILY Cholesterol 02/22/19 08/30/24 lisinopril 10 mg tablet 10 mg PO DAILY Hypertension 02/20/20 08/30/24 amlodipine 5 mg tablet 5 mg PO DAILY Hypertension 10/25/20 08/30/24 metoprolol succinate 25 mg 25 mg PO DAILY Hypertension 05/14/21 08/30/24 tablet,extended release 24 hr omeprazole magnesium 20 mg 20 mg PO DAILY GERD 03/03/24 08/30/24 tablet,delayed release Previous Rx's ?Medication ?Instructions ?Recorded baclofen 5 mg tablet 5 mg PO TID #42 tabs 07/13/24 duloxetine 60 mg capsule,delayed 60 mg PO BID #60 caps 08/26/24 release gabapentin 300 mg capsule 2,100 mg (7 x 300 mg) PO DAILY 08/26/24 Neuropathy, seizures #210 caps ondansetron 4 mg disintegrating 4 mg PO Q6H PRN nausea and 08/30/24 tablet vomiting 5 days #20 tabs tamsulosin 0.4 mg capsule (Flomax) 0.4 mg PO DAILY 7 days #7 caps 08/30/24 Allergies Allergy/AdvReac Type Severity Reaction Status Date / Time No Known Allergies Allergy Verified 08/30/24 16:45 [facility] Disclaimer: The information contained in this section may have been updated after the patient was seen, as this information can be updated by other users. 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 He is currently on gabapentin 300 mg capsule, 3 capsules twice daily. 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 occupational exposures/hazards: No caffeine: Yes Have you lived/traveled outside [place] in past 30 days?: No Contact w/someone who lives/traveled outside US past 30 days?: No Exposure to someone with infectious disease in past 14 days?: No Do you have a fever (greater than 100.4 F or 38 C)?: No Have you tested positive for COVID-19: No Exposed to someone with COVID-19 in past 14 days?: No Do you have a sore throat?: No Do you have a cough?: No Do you have any weakness?: Yes Do you have any diarrhea?: Yes Are you experiencing any unusual bleeding?: No Do you have any muscle aches/pain?: Yes Do you have any abdominal pain?: Yes Are you experiencing loss of taste or smell?: No Other Medical History Have you received the Flu Vaccine for this season: No Have you received the Pneumonia Vaccine: No ROS Obtained: Yes All systems reviewed & no additional complaints except as documented Physical Exam General General appearance: alert Respiratory Respiratory exam: Present normal lung sounds bilaterally Cardiovascular Cardiovascular exam: Present regular rate Abdominal Exam Abdominal exam: Present soft, distention and tenderness (Diffusely tender no rebound or guarding) Neurological Exam Neurological exam: Present alert and oriented X3 Medical Decision Making Medical Records Screening: Per USPSTF and CDC recommendations, given the prevalence of disease in our region, it is our hospital?s policy to screen for HIV and viral Hepatitis for all patients aged 18 and over and those with ongoing risk factors. [place] Inquiry Pt receiving controlled substance: No Vital Signs: 08/30/24 15:38 08/30/24 16:30 08/30/24 17:00 Temperature 98.8 F Temperature Source Oral Pulse Rate 81 86 Pulse Rate [Right] 86 Respiratory Rate 17 Blood Pressure 178/89 H Blood Pressure [Right Arm] 122/95 H Blood Pressure Mean [Right Arm] 104 Blood Pressure Source [Right Arm] Automatic Cuff 02 Sat by Pulse Oximetry 96 94 L 94 L Oxygen Delivery Method Room Air Room Air Room Air 08/30/24 17:30 08/30/24 18:00 08/30/24 18:15 Temperature Temperature Source Pulse Rate 87 88 90 Pulse Rate [Right] Respiratory Rate 16 13 Blood Pressure 170/87 H 170/87 H Blood Pressure [Right Arm] Blood Pressure Mean [Right Arm] Blood Pressure Source [Right Arm] 02 Sat by Pulse Oximetry 95 95 94 L Oxygen Delivery Method Room Air Room Air Room Air 08/30/24 18:45 Temperature Temperature Source Pulse Rate 91 H Pulse Rate [Right] Respiratory Rate 13 Blood Pressure 148/80 H Blood Pressure [Right Arm] Blood Pressure Mean [Right Arm] Blood Pressure Source [Right Arm] 02 Sat by Pulse Oximetry 95 Oxygen Delivery Method Room Air Lab Data Lab results reviewed: Yes I reviewed the patient's lab results. Lab Results 08/30/24 16:02: WBC 11.0 H, RBC 4.74, Hgb 14.8, Hct 44.1, MCV 93.0, MCH 31.2, MCHC 33.6, RDW 12.8, Plt Count 200, MPV 10.8 H, Neut % (Auto) 92.2 H, Lymph % (Auto) 2.7 L, Pratt % (Auto) 4.6, Eos % (Auto) 0.0 L, Baso % (Auto) 0.2, Neut # (Auto) 10.1 H, Lymph # (Auto) 0.3 L, Pratt # (Auto) 0.5, Eos # (Auto) 0.0, Baso # (Auto) 0.0, Total Counted 100, Neutrophils % (Manual) 90 H, Band Neutrophils % 2.0, Lymphocytes % (Manual) 2 L, Monocytes % (Manual) 6, Platelet Estimate Normal, RBC Morphology Normal, Sodium 138, Potassium 3.9, Chloride 98, Carbon Dioxide 30, Anion Gap 13.9, BUN 38 H, Creatinine 0.80, Estimated Creat Clear 43, Estimated GFR 92, Est GFR ( Amer) 111, Glucose 128 H, Lactate 1.3, Calcium 9.1, Magnesium 2.0, Total Bilirubin 1.4 H, AST 42, ALT 25, Alkaline Phosphatase 87, Total Protein 7.3, Albumin 4.3, Globulin 3.0, Albumin/Globulin Ratio 1.4, Lipase 44 08/30/24 16:02: Lipase 43 08/30/24 18:00: Urine Color Dark yellow, Urine Appearance Clear, Urine pH 6.0, Ur Specific Thorpe 1.025, Urine Protein Trace, Urine Glucose (UA) Negative, Urine Ketones Negative, Urine Blood 3+ A, Urine Nitrate Negative, Urine Bilirubin Negative, Urine Urobilinogen 0.2, Ur Leukocyte Esterase Negative 08/30/24 16:02 08/30/24 16:02 Orders (Tests/Meds): ED MEDICATIONS Discontinued Medications Generic Name Dose Route Start Last Admin Trade Name Philomena PRN Reason Stop Dose Admin Lactated Ringer's 1,000 mls @ 999 mls/hr 08/30/24 16:30 08/30/24 16:29 Lactated Ringer's 1000 Ml Bag IV 08/30/24 17:30 999 mls/hr .Q1H1M BRIDGETT Administration Iopamidol 75 ml 08/30/24 16:53 08/30/24 16:59 Iopamidol-370 (76%);100ml Bottle IV 08/30/24 16:54 75 ml ONCE ONE Administration Lidocaine HCl 10 ml 08/30/24 18:16 08/30/24 18:00 Lidocaine 2% Urojet 10ml UR 08/30/24 18:17 10 ml ONCE ONE Administration Morphine Sulfate 4 mg 08/30/24 16:23 08/30/24 16:42 Morphine 4mg/Ml Syringe IV 08/30/24 16:24 4 mg ONCE ONE Administration Ondansetron HCl 4 mg 08/30/24 16:23 08/30/24 16:29 Ondansetron 4mg/2ml Vial IV 08/30/24 16:24 4 mg ONCE ONE Administration Sodium Chloride 10 ml 08/30/24 16:53 08/30/24 16:59 Sodium Chloride 0.9% 10ml Syr (Rad Only) IV 08/30/24 16:54 10 ml ONCE ONE Administration ORDERS Category Date Time Status CT abdomen pelvis w con Stat Cat Scan 08/30/24 16:23 Completed Complete Blood Count Auto Diff Stat Lab 08/30/24 16:02 Completed Comprehensive Metabolic Panel Stat Lab 08/30/24 16:02 Completed Diarrhea 23 Panel, PCR Stat Lab 08/30/24 16:23 Ordered Lactic Acid Stat Lab 08/30/24 16:02 Completed Lipase Stat Lab 08/30/24 16:02 Completed Lipase Stat Lab 08/30/24 16:02 Completed MAG [Magnesium] Stat Lab 08/30/24 16:02 Completed Urinalysis and Microscopic Stat Lab 08/30/24 18:00 Results Medical Decision Narrative: 84-year-old with above history and physical he is nontoxic in appearance but presents with nausea vomiting diarrhea he has a distended abdomen diffuse abdominal tenderness and has had pathology in the past suggesting that he could have bowel obstructions and adhesions, worsening metastatic disease in his abdomen, recurrence of cancer, other intra-abdominal processes such as colitis etc. Stool sample has been requested CT scan has been ordered labs and IV fluids pain medicine nausea medicine have been administered will reassess. Reassessment CT scan was performed which I personally interpreted which shows distended bladder and bilateral hydronephrosis likely bladder outlet obstruction presumably from prostate hypertrophy. Urinalysis showed hematuria but no evidence definitively of urinary tract infection he also has no symptoms of urinary tract infection. No other surgical pathology found in the patient's abdomen. Likely has a superimposed viral gastroenteritis. Symptomatic medications have been sent to his pharmacy no other significant laboratory abnormalities. Given the fact that he has these genitourinary findings Spence catheter was placed with significant improvement in his symptoms of leg bag was given to the patient has been advised to follow-up closely with our urologist Dr. Castillo to look further into his hematuria as well as his bladder out obstruction. Critical Care Critical Care Time Critical Care Time: No
[2024-08-30 16:32] LABS: Basophils % 0.2 % (0.1-2.0); Hematocrit 44.1 % (42.0-52.0); Hemoglobin 14.8 g/dL (14.1-18.0); Lymphocytes # 0.3 K/mm3 (0.7-4.5); Lymphocytes % 2.7 % (10-50); Mean Corpuscular HGB Conc 33.6 g/dL (31.8-35.4); Mean Corpuscular Hemoglobin 31.2 pg (27.0-31.2); Mean Platelet Volume 10.8 fl (7.4-10.4); Monocytes # 0.5 K/mm3 (0.1-1.0); Monocytes % 4.6 % (1.7-9.3); Neutrophils # 10.1 K/mm3 (1.8-7.8); Neutrophils % 92.2 % (37.0-80.0); Platelet Count 200 K/mm3 (142-424); Red Blood Count 4.74 M/mm3 (4.60-6.20); Red Cell Distribution Width 12.8 % (11.5-17.5)
--- NOTE | 2024-08-30 16:34 | PC.NURSE ---
I rounded on the pt, he was resting with his eyes closed initially. I gave him a urinal to collect a sample for UA. He is unable to go at this time. no new complaints. no needs voiced. call lee in reach.
[2024-08-30 16:38] LABS: Albumin Level 4.3 g/dl (3.5-5.0); Chloride 98 mmol/L (98-107); Potassium 3.9 mmoL/L (3.5-5.1); Sodium 138 mmol/L (136-145)
[2024-08-30 16:41] LABS: Alanine Aminotransferase 25 U/L (12-78); Albumin/Globulin Ratio 1.4 (1.1-1.8); Alkaline Phosphatase 87 U/L (38-126); Aspartate Amino Transferase 42 U/L (17-59); Bilirubin,Total 1.4 mg/dl (0.2-1.3); Blood Urea Nitrogen 38 mg/dl (9-20); Calcium 9.1 mg/dl (8.4-10.2); Creatinine Clearance Estimated 43 mL/min (50-200); Estimated Glomerular Filt Rate 92 ml/min (>60); GFR (African American) 111 ML/MIN (>60); Glucose 128 mg/dl (74-100); Lipase 43 U/L (23-300); Lipase 44 U/L (23-300); MANUAL DIFFERENTIAL MANUAL DIFFERENTIAL (MANUAL DIFF); Total Protein,Serum 7.3 g/dl (6.3-8.2)
[2024-08-30 16:42] LABS: Lactic Acid 1.3 mmol/L (0.7-2.1)
[2024-08-30] MEDS: MORPHINE 4MG/ML SYRINGE 4 MG IV (16:42)
--- NOTE | 2024-08-30 16:46 | PC.NURSE ---
pt to CT via stretcher
--- NOTE | 2024-08-30 16:56 | PC.NURSE ---
Pt returned from radiology via stretcher.
[2024-08-30] MEDS: SODIUM CHLORIDE 0.9% 10ML SYR (RAD ONLY) 10 ML IV (16:59)
[2024-08-30] MEDS: IOPAMIDOL-370 (76%);100ML BOTTLE 75 ML IV (16:59)
[2024-08-30] MEDS: LIDOCAINE 2% UROJET 10ML 10 ML UR (18:00)
[2024-08-30 18:10] LABS: Microscopic, Urine URINE MICROSCOPIC (MICROSCOPIC)
[2024-08-30 18:17] LABS: Lymphocytes % 2 % (10-50); Monocytes % 6 % (2-9); Neutrophils % 90 % (42-76); Platelet Estimate Normal; RBC Morphology Normal; Total Cells Counted 100
--- NOTE | 2024-08-30 18:28 | PC.NURSE ---
ROUNDED ON THE PT. THE PT VOICES THAT HE DOES NOT NEED ANYTHING AT THIS TIME. CALL LIGHT IS WITHIN REACH OF THE PT. IS PRESENT AT THE BEDSIDE.
[2024-08-30 18:31] LABS: Anion Gap 13.9 mEq/L (5-15); Carbon Dioxide 30 mmol/L (22.0-30.0)
[2024-08-30 18:33] LABS: Appearance,Urine CLEAR (Clear); Bilirubin,Urine Negative (Negative); Blood, Urine 3+ (Negative); Color,Urine DARK YELLOW (Yellow); Glucose,Urine (UA) Negative (Negative); Ketones,Urine Negative (Negative); Leukocyte Esterase,Urine Negative (Negative); Nitrate,Urine Negative (Negative); Protein,Urine TRACE (Negative); Specific Gravity, Urine 1.025 (1.005-1.030); Urobilinogen,Urine 0.2 EU/dl (0.2)
--- NOTE | 2024-08-30 18:49 | PC.NURSE ---
Dr. Marie at [facility] for update on POC
--- NOTE | 2024-08-30 18:51 | PC.NURSE ---
Called lab to check on UA results per Dr Marie. Lab states they are really, really busy and please be patient . Dr. Marie updated with this information.
--- NOTE | 2024-08-30 19:04 | PC.NURSE ---
updated pt's on results thus far via phone as she had to go home.
--- NOTE | 2024-08-30 19:22 | PC.NURSE ---
Contacted patients regarding discharge of this patient, it was explained the findings of his work up and there is a prescription called into the pharmacy. She stated that she will talk to her son to come get him.
[2024-08-30] MEDS: KETOROLAC 30MG/ML VIAL 15 MG IV (19:52)
[2024-08-30 20:11] LABS: Bacteria,Urine Trace /lpf; RBC,Urine 20-50 #/hpf (0-3)
== END 2024-08-30 19:52 | disposition home or self-care (01) ==
PROVIDERS: Emergency Provider Student in an Organized Health Care Education/Training Program; PCP Family Medicine
DX: R11.2 Nausea with vomiting, unspecified (principal); R19.7 Diarrhea, unspecified; R53.1 Weakness; M54.50 Low back pain, unspecified; R10.84 Generalized abdominal pain; R14.0 Abdominal distension (gaseous); R39.81 Functional urinary incontinence; N32.0 Bladder-neck obstruction; R31.9 Hematuria, unspecified; Z85.038 Personal history of other malignant neoplasm of large intestine
CPT/HCPCS: 51702; 74177; 80053; 81001; 83605; 83690; 83735; 85007; 85025; 85027; 96361; 96374; 96375; 99285; J1885; J2270; J2405; J7120; Q9967

== ENCOUNTER 2024-09-05 10:00 | Outpatient (CLI) | payer MEDICARE, SELFPAY | END 2024-09-05 23:59 | disposition home or self-care (01) | LOC: LAB.DROPOF 09-06 10:03 | PROVIDERS: PCP Urology; Visit Provider Urology | DX: R33.9 Retention of urine, unspecified (principal); N40.1 Benign prostatic hyperplasia with lower urinary tract symptoms; N13.8 Other obstructive and reflux uropathy; N39.0 Urinary tract infection, site not specified | CPT/HCPCS: 87086; 87088; 87186 ==

== ENCOUNTER 2024-09-07 13:34 | Outpatient (CLI) | payer MEDICARE, SELFPAY ==
--- NOTE | 2024-09-07 13:35 | US_ITS ---
FINAL REPORT CLINICAL HISTORY: .urinary retention COMPARISON: None FINDINGS: RENAL ULTRASOUND Ultrasound images of the kidneys were obtained. Limited images of the liver parenchyma demonstrate normal echogenicity. The right kidney measures 10.5 cm in length. It is normal echogenicity. There is no hydronephrosis, mass or stone. There is a small exophytic cyst. The left kidney measures 11.5 cm in length. It is normal echogenicity. There is no hydronephrosis, mass or stone. IMPRESSION: Small right kidney cyst. Otherwise, unremarkable ultrasound of the kidneys. Reviewed, Interpreted and Dictated by Karina Crowley MD Transcribed by Lesli Ly Authenticated and [facility]
--- NOTE | 2024-09-07 14:02 | XR_ITS ---
FINAL REPORT CLINICAL HISTORY: Urinary retention COMPARISON: None FINDINGS: 2 views of the abdomen were obtained. There is no prior for comparison. The bowel gas pattern is nonspecific but nonobstructive. There is a moderate amount of stool in the colon. There are no pathologic calcifications, specifically no renal stones are identified. There is a density overlying the right sacrum that may represent a bone island. IMPRESSION: No acute intraabdominal abnormality. Moderate stool. Reviewed, Interpreted and Dictated by Karina Crowley MD Transcribed by Rosalba Monsivais Authenticated and [facility]
[2024-09-07 14:25] LABS: Microscopic, Urine URINE MICROSCOPIC (MICROSCOPIC)
[2024-09-07 15:36] LABS: Appearance,Urine CLEAR (Clear); Blood, Urine 3+ (Negative); Color,Urine YELLOW (Yellow); Glucose,Urine (UA) Negative (Negative); Ketones,Urine TRACE (Negative); Leukocyte Esterase,Urine 2+ (Negative); Nitrate,Urine POSITIVE (Negative); PH,Urine 5.5 (5.0-8.5); Protein,Urine 2+ (Negative); Specific Gravity, Urine >= 1.030 (1.005-1.030)
[2024-09-07 15:45] LABS: Bilirubin,Urine Negative (Negative)
[2024-09-07 16:12] LABS: Estimated Glomerular Filt Rate 92 ml/min (>60); GFR (African American) 111 ML/MIN (>60)
[2024-09-07 16:19] LABS: Blood Urea Nitrogen 19 mg/dl (9-20)
[2024-09-07 16:21] LABS: Bacteria,Urine 4+ /lpf; RBC,Urine 20-50 #/hpf (0-3); WBC,Urine 50-100 #/hpf (0-3)
== END 2024-09-07 23:59 | disposition home or self-care (01) ==
PROVIDERS: PCP Family Medicine; Visit Provider Urology
DX: N40.1 Benign prostatic hyperplasia with lower urinary tract symptoms (principal); R33.9 Retention of urine, unspecified; N13.8 Other obstructive and reflux uropathy; B96.29 Other Escherichia coli [E. coli] as the cause of diseases classified elsewhere
CPT/HCPCS: 74018; 76770; 81001; 82565; 84520; 87086; 87088; 87186

== ENCOUNTER 2024-10-04 17:56 | Inpatient (IN) | payer MEDICARE, SELFPAY ==
[2024-10-04] VITALS (8 sets, daily range): BP systolic 107–133; BP diastolic 46–77; PULSE 86–105; RESP 16–20; TEMP 36.7–37; O2SAT 90–100; BMI 19.8; BMI 19.5
--- NOTE | 2024-10-04 18:11 | PC.NURSE ---
pt brought back to [facility] 11 from triage. pt states he tripped and fell on Thursday. pt c/o R hip/femur pain. pt states he is unable to bare weight. pt states his pain is 8/10 and sharp in nature. pt denies LOC. pt does not take any blood thinners.
--- NOTE | 2024-10-04 18:24 | XR_ITS ---
PROCEDURE INFORMATION: Exam: XR Right Hip Exam date and time: 10/04/2024 7:19 PM Age: 84 years old Clinical indication: Injury or trauma; Fall; Blunt trauma (contusions or hematomas); Right; Hip; Additional info: Fall on Thursday, right hip pain TECHNIQUE: Imaging protocol: Radiologic exam of the right hip. Views: 2 or 3 views hip with pelvis when performed. COMPARISON: CT ABDOMEN PELVIS W CON 08/30/2024 4:51 PM FINDINGS: Bones/joints: Comminuted displaced intertrochanteric right hip fracture. Fractures of the greater trochanter and lesser trochanter. Degenerative changes in the sacroiliac joints Soft tissues: Unremarkable. IMPRESSION: Comminuted displaced intertrochanteric right hip fracture. Fractures of the greater trochanter and lesser trochanter.
--- NOTE | 2024-10-04 18:24 | XR_ITS ---
PROCEDURE INFORMATION: Exam: XR Right Femur Exam date and time: 10/04/2024 7:21 PM Age: 84 years old Clinical indication: Injury or trauma; Fall; Blunt trauma; Hip; Right; Additional info: Fall on Thursday, right hip pain TECHNIQUE: Imaging protocol: Radiologic exam of the right femur. Views: 2 views. COMPARISON: CR XR HIP RT 2-3V W/PELVIS 10/04/2024 7:19 PM FINDINGS: Bones/joints: Comminuted displaced intertrochanteric right hip fracture. Displaced fracture of the greater trochanter and lesser trochanter.. The glenohumeral joint is aligned Soft tissues: Unremarkable. IMPRESSION: Comminuted displaced intertrochanteric right hip fracture. Displaced fracture of the greater trochanter and lesser trochanter..
[2024-10-04] MEDS: ACETAMINOPHEN 500MG TAB 1000 MG PO (18:45)
[2024-10-04] MEDS: MORPHINE 4MG/ML SYRINGE 4 MG IV (18:46)
[2024-10-04] MEDS: ONDANSETRON 4MG/2ML VIAL 4 MG IV (18:46)
[2024-10-04] MEDS: KETOROLAC 30MG/ML VIAL 30 MG IV (18:47)
[2024-10-04 18:57] LABS: Basophils % 0.3 % (0.1-2.0); Eosinophils # 0.1 K/mm3 (0.0-0.4); Eosinophils % 1.1 % (0.1-12.0); Hematocrit 34.5 % (42.0-52.0); Hemoglobin 11.9 g/dL (14.1-18.0); Lymphocytes # 0.4 K/mm3 (0.7-4.5); Lymphocytes % 4.4 % (10-50); Mean Corpuscular HGB Conc 34.5 g/dL (31.8-35.4); Mean Corpuscular Hemoglobin 31.4 pg (27.0-31.2); Mean Platelet Volume 11.3 fl (7.4-10.4); Monocytes # 0.9 K/mm3 (0.1-1.0); Monocytes % 10.6 % (1.7-9.3); Neutrophils # 7.3 K/mm3 (1.8-7.8); Neutrophils % 83.3 % (37.0-80.0); Platelet Count 151 K/mm3 (142-424); Red Blood Count 3.79 M/mm3 (4.60-6.20); Red Cell Distribution Width 12.3 % (11.5-17.5); White Blood Count 8.8 K/mm3 (4.8-10.8)
[2024-10-04 19:04] LABS: Chloride 100 mmol/L (98-107); Potassium 4.2 mmoL/L (3.5-5.1); Sodium 135 mmol/L (136-145)
--- NOTE | 2024-10-04 19:06 | ED_ITS ---
Discharge Plan Disposition Patient Disposition: Admitted Chief Complaint: PAIN Prescriptions Prescriptions: No Action lisinopril 10 mg tablet 10 mg PO DAILY amlodipine 5 mg tablet 5 mg PO DAILY metoprolol succinate 25 mg tablet extended release 24 hr 25 mg PO DAILY gabapentin 300 mg capsule 2,100 mg PO DAILY MDD 2100 mg Qty: 210 5RF Rx Instructions: 900 mg, (3 caps) p.o. every morning and 1200 mg p.o. nightly, (4 caps) duloxetine 60 mg capsule,delayed release(DR/EC) 60 mg PO BID Qty: 60 5RF tamsulosin [Flomax] 0.4 mg capsule 0.4 mg PO DAILY 90 Days Qty: 90 1RF levofloxacin 500 mg tablet 500 mg PO DAILY 5 Days Qty: 5 0RF atorvastatin 40 MG tablet 20 mg PO DAILY omeprazole magnesium 20 mg tablet,delayed release (DR/EC) 20 mg PO DAILY baclofen 5 mg tablet 5 mg PO TID Qty: 42 0RF ondansetron 4 mg tablet,disintegrating 4 mg PO Q6H PRN (Reason: nausea and vomiting) 5 Days Qty: 20 0RF Referrals Follow up/Referrals: Beltran Batista MD [Primary Care Provider] - See instructions Clinical Impressions Clinical Impression: Intertrochanteric fracture of femur Print Language Print Language: Vietnamese Discharge ED Provider: Ander Cardenas General Adult HPI General Chief complaint: PAIN Stated complaint: fall 10/02 RT hip pain Time Seen by Provider: 10/04/24 18:18 Mode of Arrival: Wheelchair Source of Information: Patient Description of Symptoms (Recalled from ER Triage Doc. by RN): Pt presents for evaluation of right hip pain after tripping while walking in his driveway on thursday. Denies hitting his head, denies LOC, denies BT. History of Present Illness HPI narrative: Patient is 84-year-old male with no pertinent past medical history presents emergency department after hitting his right hip on Thursday. Patient tripped in his driveway and struck his right hip, did not strike his head, no loss of consciousness. Since then he has had no ability to bear weight on his right leg due to severe hip pain. No other traumatic complaints at this time. Please note that above description of symptoms, in this electronic medical record under categorization of recalled from ER triage doctor by RN are reflective of an initial nursing assessment, however, is not reflective of my full history and physical exam that was personally taken and clarified. Consequentially, this preceding description of symptoms, which may include the patient's categorized chief complaint in the EMR, do not reflect my personal clinical impression, and the ultimate description of history of present illness and patient stated complaints should be deferred to this section of the note. Unless stated otherwise or congruent with this section of the note, additional signs, symptoms, or incongruence should be interpreted as inaccurate with my clinical impression. Related Data Home Medications ?Medication ?Instructions ?Recorded ?Confirmed atorvastatin 40 mg tablet 20 mg PO DAILY Cholesterol 02/22/19 10/04/24 lisinopril 10 mg tablet 10 mg PO DAILY Hypertension 02/20/20 10/04/24 amlodipine 5 mg tablet 5 mg PO DAILY Hypertension 10/25/20 10/04/24 metoprolol succinate 25 mg 25 mg PO DAILY Hypertension 05/14/21 10/04/24 tablet,extended release 24 hr omeprazole magnesium 20 mg 20 mg PO DAILY GERD 03/03/24 10/04/24 tablet,delayed release Previous Rx's ?Medication ?Instructions ?Recorded baclofen 5 mg tablet 5 mg PO TID #42 tabs 07/13/24 duloxetine 60 mg capsule,delayed 60 mg PO BID #60 caps 08/26/24 release gabapentin 300 mg capsule 2,100 mg (7 x 300 mg) PO DAILY 08/26/24 Neuropathy, seizures #210 caps ondansetron 4 mg disintegrating 4 mg PO Q6H PRN nausea and 08/30/24 tablet vomiting 5 days #20 tabs levofloxacin 500 mg tablet 500 mg PO DAILY 5 days #5 tabs 09/09/24 tamsulosin 0.4 mg capsule (Flomax) 0.4 mg PO DAILY 90 days #90 caps 09/12/24 Allergies Allergy/AdvReac Type Severity Reaction Status Date / Time No Known Allergies Allergy Verified 10/04/24 18:24 [facility] Disclaimer: The information contained in this section may have been updated after the patient was seen, as this information can be updated by other users. 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 He is currently on gabapentin 2100mg po qd 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 occupational exposures/hazards: No caffeine: Yes Have you lived/traveled outside US in past 30 days?: No Contact w/someone who lives/traveled outside US past 30 days?: No Exposure to someone with infectious disease in past 14 days?: No Do you have a fever (greater than 100.4 F or 38 C)?: No Have you tested positive for COVID-19: No Exposed to someone with COVID-19 in past 14 days?: No Do you have a sore throat?: No Do you have a cough?: No Do you have any weakness?: No Do you have any diarrhea?: No Are you experiencing any unusual bleeding?: No Do you have any muscle aches/pain?: No Do you have any abdominal pain?: No Are you experiencing loss of taste or smell?: No Other Medical History Have you received the Flu Vaccine for this season: No Have you received the Pneumonia Vaccine: Yes ROS Obtained: Yes Systems reviewed as appropriate & no additional complaints except as documented Physical Exam General General appearance: alert and in no apparent distress Head Head exam: atraumatic and normocephalic Eye Eye exam: Present PERRL ENT ENT exam: Present mucous membranes moist Neck Neck exam: Present normal inspection Chest Chest inspection: Present normal inspection and symmetric chest wall rise Respiratory Respiratory exam: Absent respiratory distress Cardiovascular Cardiovascular exam: Present regular rate and normal rhythm Abdominal Exam Abdominal exam: Present soft; Absent tenderness Extremities Exam Extremities exam: Present normal inspection and other (Severe tenderness over the right hip. Patient unable to lift right lower extremity off the bed secondary to severe pain at the hip. No tenderness over the knee or tib-fib or foot on the right. No tenderness left lower extremity.) Back Exam Back exam: Present normal inspection; Absent tenderness Neurological Exam Neurological exam: Present alert Psychiatric Psychiatric exam: Present normal affect Skin Skin exam: Present warm and dry Medical Decision Making Medical Records Screening: Per USPSTF and CDC recommendations, given the prevalence of disease in our region, it is our hospital?s policy to screen for HIV and viral Hepatitis for all patients aged 18 and over and those with ongoing risk factors. [place] Inquiry Pt receiving controlled substance: No Vital Signs: 10/04/24 18:00 10/04/24 18:32 10/04/24 19:00 Temperature 98.6 F Temperature Source Temporal Artery Scan Pulse Rate 87 86 Pulse Rate [Right] 105 H Respiratory Rate 18 Blood Pressure 133/70 119/55 L Blood Pressure [Right Arm] 123/68 Blood Pressure Mean [Right Arm] 86 Blood Pressure Source [Right Arm] Automatic Cuff Blood Pressure Position [Right Arm] Sitting 02 Sat by Pulse Oximetry 100 100 90 L Oxygen Delivery Method Room Air Room Air Lab Data Lab Results 10/04/24 18:50: WBC 8.8, RBC 3.79 L, Hgb 11.9 L, Hct 34.5 L, MCV 91.0, MCH 31.4 H, MCHC 34.5, RDW 12.3, Plt Count 151, MPV 11.3 H, Neut % (Auto) 83.3 H, Lymph % (Auto) 4.4 L, [place] % (Auto) 10.6 H, Eos % (Auto) 1.1, Baso % (Auto) 0.3, Neut # (Auto) 7.3, Lymph # (Auto) 0.4 L, [place] # (Auto) 0.9, Eos # (Auto) 0.1, Baso # (Auto) 0.0, Sodium 135 L, Potassium 4.2, Chloride 100, Carbon Dioxide 31 H, Anion Gap 8.2, BUN 24 H, Creatinine 0.70, Estimated Creat Clear 45, Estimated GFR 107, Est GFR ( Amer) 130, Glucose 140 H, Calcium 9.2 10/04/24 18:50 10/04/24 18:50 Orders (Tests/Meds): ED MEDICATIONS Discontinued Medications Generic Name Dose Route Start Last Admin Trade Name Freq PRN Reason Stop Dose Admin Acetaminophen 1,000 mg 10/04/24 18:24 10/04/24 18:45 Acetaminophen 500mg Tab PO 10/04/24 18:25 1,000 mg ONCE ONE Administration Ketorolac Tromethamine 30 mg 10/04/24 18:24 10/04/24 18:47 Ketorolac 30mg/Ml Vial IV 10/04/24 18:25 30 mg ONCE ONE Administration Morphine Sulfate 4 mg 10/04/24 18:26 10/04/24 18:46 Morphine 4mg/Ml Syringe IV 10/04/24 18:27 4 mg ONCE ONE Administration Ondansetron HCl 4 mg 10/04/24 18:24 10/04/24 18:46 Ondansetron 4mg/2ml Vial IV 10/04/24 18:25 4 mg ONCE ONE Administration ORDERS Category Date Time Status XR femur RT 2V Stat Exams 10/04/24 18:24 Taken XR hip RT 2-3V w/pelvis Stat Exams 10/04/24 18:24 Taken BMP [Basic Metabolic Panel] Stat Lab 10/04/24 18:50 Completed CBC w/Auto Diff [Complete Blood Count Auto Diff] Stat Lab 10/04/24 18:50 Completed Medical Decision Narrative: In summary patient is a 84-year-old male past medical history described above who presents emergency department for evaluation traumatic hip pain. Patient is hemodynamically stable nontoxic-appearing upon arrival, afebrile. My concern for hip fracture is high. Workup will begin with plain films, basic labs. Initial inventions include multimodal pain control. Imaging of the head, neck, thorax was considered however based on history and physical exam will be deferred at this time. Initial work reviewed by me hematologic labs are nonactionable, anemia of 11.9, not transfusable. No leukocytosis normal platelets no JINNY or critical electrolyte abnormality. X-ray informally interpreted by me, acute intertrochanteric femur fracture on the right. Case discussed with Dr. Murphy and we will admit to the hospitalist with him consulting and he will see the patient in the morning. Patient was admitted in stable condition. Critical Care Critical Care Time Critical Care Time: No
[2024-10-04 19:07] LABS: Anion Gap 8.2 mEq/L (5-15); Blood Urea Nitrogen 24 mg/dl (9-20); Calcium 9.2 mg/dl (8.4-10.2); Carbon Dioxide 31 mmol/L (22.0-30.0); Creatinine Clearance Estimated 45 mL/min (50-200); Estimated Glomerular Filt Rate 107 ml/min (>60); GFR (African American) 130 ML/MIN (>60); Glucose 140 mg/dl (74-100)
--- NOTE | 2024-10-04 20:13 | PC.NURSE ---
HOuse notified of bed request
--- NOTE | 2024-10-04 20:14 | PC.NURSE ---
Hospitalist at bedside
--- NOTE | 2024-10-04 20:25 | PC.NURSE ---
Attempted to call report RN busy with transport Will call back
--- NOTE | 2024-10-04 20:36 | ECG_ITS ---
APPROVED REPORT Exam: Resting ECG HR:87 bpm ECG Measurements Heart Rate 87 AXES NC 149 P 63 QRSd 173 QRS -30 QT 398 T 104 QTc 443 Conclusion SINUS RHYTHM LEFT BUNDLE BRANCH BLOCK [120+ ms QRS DURATION, 80+ ms Q/S IN V1/V2, 85+ ms R IN I/aVL/V5/V6] ABNORMAL ECG UNCONFIRMED REPORT Electronically signed by : Jarvis Paz MD 10/10/2024 08:55:27
--- NOTE | 2024-10-04 20:36 | P.HP_ITS ---
<Statement entered by Cody Talley MD - 10/10/24 19:48> Personally evaluated patient and agree with plan of care as outlined by the [employer]IMMER. History of Present Illness *Admission Date: 10/04/24 *Reason for visit:: Right hip pain *History of present illness: This is an 84-year-old male who has a past medical history significant for aortic valve stenosis with TAVR, hypertension, CVA, hyperlipidemia, heart murmur, colon cancer, and sarcoma who presents with a chief complaint of right hip pain. Due to patient's symptoms, he presented to the emergency room for evaluation. While in emergency room, plain films of the hip revealed a right hip fracture nondisplaced and impacted. Due to these findings, patient has been admitted for further management. During my evaluation of the patient, patient states he fell while in the garage holding milk. He is denying any lightheadedness or dizziness. On further questioning, patient states that he had a TEVAR procedure performed 4 years ago that unfortunately led to a hole in the heart leading to open heart surgery. Post open heart, patient states she has had approximately 32 strokes. He was recently evaluated by his stonecutter who states from a cardiology standpoint he was in good health. Patient voiced that he is able to walk to and from his mailbox without any shortness of breath and he can lift at least a gallon of milk. He has had no recent stress test or heart cath. Patient also mentions that he has been experiencing urinary retention for the past 3 weeks or so and has had to self cath. He is currently denying any syncope, near syncope, lightheadedness, dizziness, chest pain, nausea, vomiting, shortness of breath, dyspnea, PND, orthopnea, lower extremity swelling, or diarrhea. Additional pertinent vitals obtained include a red blood cell count of 3.79, hemoglobin 9.9, hematocrit 34.5, neutrophils 83.2%, sodium 135, bicarb of 31, BUN 24, blood glucose 140,And urinalysis revealed 2+ protein/3+ occult blood/positive nitrates/2+ leukocyte Estrace/white blood cells 50-100. [facility] Disclaimer: The information contained in this section may have been updated after the minh holder was seen, as this information can be updated by other users. 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 He is currently on gabapentin 2100mg po qd 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 occupational exposures/hazards: No caffeine: Yes Have you lived/traveled outside US in past 30 days?: No Contact w/someone who lives/traveled outside US past 30 days?: No Exposure to someone with infectious disease in past 14 days?: No Do you have a fever (greater than 100.4 F or 38 C)?: No Have you tested positive for COVID-19: No Exposed to someone with COVID-19 in past 14 days?: No Do you have a sore throat?: No Do you have a cough?: No Do you have any weakness?: No Do you have any diarrhea?: No Are you experiencing any unusual bleeding?: No Do you have any muscle aches/pain?: No Do you have any abdominal pain?: No Are you experiencing loss of taste or smell?: No Other Medical History Have you received the Flu Vaccine for this season: No Have you received the Pneumonia Vaccine: Yes Review of Systems Review of Systems Review of systems:: pertinent systems reviewed and negative unless documented below Constitutional Constitutional: Reports system reviewed and no additional complaints, except as documented Eyes Eyes: Reports system reviewed and no additional complaints, except as documented ENT Ears, Nose, Mouth, and Throat: Reports system reviewed and no additional complaints, except as documented *Cardiovascular Cardiovascular: Reports system reviewed and no additional complaints, except as documented *Respiratory Respiratory: Reports system reviewed and no additional complaints, except as documented *Gastrointestinal Gastrointestinal: Reports system reviewed and no additional complaints, except as documented *Genitourinary Genitourinary: Reports difficulty urinating *Musculoskeletal Musculoskeletal: Reports arthralgias Integumentary/Breasts Skin/Breast: Reports system reviewed and no additional complaints, except as documented *Neurologic Neurologic: Reports system reviewed and no additional complaints, except as documented Psychiatric Psychiatric: Reports system reviewed and no additional complaints, except as documented Endocrine Endocrine: Reports system reviewed and no additional complaints, except as documented Hematologic/Lymphatic Hematologic/Lymphatic: Reports system reviewed and no additional complaints, except as documented Allergic/Immunologic Allergic/Immunologic: Reports system reviewed and no additional complaints, except as documented Meds Home Medications and Allergies Home Medications ?Medication ?Instructions ?Recorded ?Confirmed ?Type atorvastatin 40 mg tablet 20 mg PO DAILY Cholesterol 02/22/19 10/04/24 History lisinopril 10 mg tablet 10 mg PO DAILY Hypertension 02/20/20 10/04/24 History amlodipine 5 mg tablet 5 mg PO DAILY Hypertension 10/25/20 10/04/24 History metoprolol succinate 25 mg 25 mg PO DAILY Hypertension 05/14/21 10/04/24 History tablet,extended release 24 hr omeprazole magnesium 20 mg 20 mg PO DAILY GERD 03/03/24 10/04/24 History tablet,delayed release baclofen 5 mg tablet 5 mg PO TID #42 tabs 07/13/24 10/04/24 Rx duloxetine 60 mg capsule,delayed 60 mg PO BID #60 caps 08/26/24 10/04/24 Rx release gabapentin 300 mg capsule 2,100 mg (7 x 300 mg) PO DAILY 08/26/24 10/04/24 Rx Neuropathy, seizures #210 caps ondansetron 4 mg disintegrating 4 mg PO Q6H PRN nausea and 08/30/24 10/04/24 Rx tablet vomiting 5 days #20 tabs levofloxacin 500 mg tablet 500 mg PO DAILY 5 days #5 tabs 09/09/24 10/04/24 Rx tamsulosin 0.4 mg capsule (Flomax) 0.4 mg PO DAILY 90 days #90 caps 09/12/24 10/04/24 Rx New Prescriptions to Start Prescriptions: Allergies Allergy/AdvReac Type Severity Reaction Status Date / Time No Known Allergies Allergy Verified 10/04/24 18:24 Exam Data for Last 24 hours Vital signs and Labs for Last 24 Hours: Temp Pulse Resp BP Pulse Ox O2 Del Method 98.6 F 87 18 129/77 95 Room Air 10/04/24 18:00 10/04/24 20:00 10/04/24 18:00 10/04/24 20:00 10/04/24 20:00 10/04/24 18:32 Laboratory Results - last 24 hr 10/04/24 18:50: WBC 8.8, RBC 3.79 L, Hgb 11.9 L, Hct 34.5 L, MCV 91.0, MCH 31.4 H, MCHC 34.5, RDW 12.3, Plt Count 151, MPV 11.3 H, Neut % (Auto) 83.3 H, Lymph % (Auto) 4.4 L, [place] % (Auto) 10.6 H, Eos % (Auto) 1.1, Baso % (Auto) 0.3, Neut # (Auto) 7.3, Lymph # (Auto) 0.4 L, [place] # (Auto) 0.9, Eos # (Auto) 0.1, Baso # (Auto) 0.0, Sodium 135 L, Potassium 4.2, Chloride 100, Carbon Dioxide 31 H, Anion Gap 8.2, BUN 24 H, Creatinine 0.70, Estimated Creat Clear 45, Estimated GFR 107, Est GFR ( Amer) 130, Glucose 140 H, Calcium 9.2 I & O for Last 24 hours: Intake & Output 10/01/24 10/03/24 10/03/24 10/04/24 23:59 00:59 23:59 23:59 Weight 58.967 kg Constitutional Constitutional: no acute distress, thin and cooperative *Routine HEENT Exam Head: Present normocephalic and atraumatic Eye: Present EOMI, PERRL and normal accommodation ENT: Present mucous membranes moist *Routine Neck Exam Neck: Present supple, full ROM and trachea midline *Routine Respiratory Exam Respiratory: Present CTA bilaterally, normal respiratory effort, able to speak in complete sentences and symmetric chest movement *Routine Cardiovascular Exam Cardiovascular: Present RRR, Normal S1 and Normal S2 *Routine Abdominal Exam Abdominal: Present soft and normoactive bowel sounds *Routine Rectal Exam Rectal:: deferred *Routine Genitalia Exam Genitalia:: deferred *Routine Extremities Exam Extremities: Present pulses intact and normal capillary refill Comments: Right lower extremity is awkwardly turned laterally Routine Back/Spine/Pelvis Exam Back/Spine: Present full ROM *Routine Skin Exam Skin: Present intact, dry, warm and normal turgor *Routine Neurological Exam Neurological: Present alert, oriented X3, CN II-XII intact and normal speech Routine Psychiatric Exam Psychiatric: Present normal affect, normal thought process, cooperative, good insight and good judgment H&P: Result Impressions 84-year-old male who had a ground-level fall resulting in a right hip fracture. Assessment and Plan *Assessment and plan (1) Intertrochanteric fracture of femur: Status: Acute Qualifiers: Encounter type: initial encounter Fracture type: closed Fracture alignment: nondisplaced Laterality: right Qualified Code(s): S72.144A - Nondisplaced intertrochanteric fracture of right femur, initial encounter for closed fracture Category: Medical Code(s): S72.143A - Displaced intertrochanteric fracture of unspecified femur, initial encounter for closed fracture (2) UTI (urinary tract infection): Status: Acute Qualifiers: Urinary tract infection type: site unspecified Hematuria presence: without hematuria Qualified Code(s): N39.0 - Urinary tract infection, site not specified Category: Medical Code(s): N39.0 - Urinary tract infection, site not specified (3) Urinary retention: Status: Acute Category: Medical Code(s): R33.9 - Retention of urine, unspecified (4) Fall: Status: Acute Qualifiers: Encounter type: initial encounter Qualified Code(s): W19.XXXA - Unspecified fall, initial encounter Category: Medical Code(s): W19.XXXA - Unspecified fall, initial encounter Plan Assessment: Right hip fracture -Patient currently has a revised cardiac index score of 1 which is a 6% chance for cardiac event. Patient does have advanced age and prior heart history and stroke patient's risk for anesthesia is a moderate risk. -Obtain EKG for preop cardiac clearance -Obtain 2D echo for precardiac clearance -Consult orthopedic team Urinary tract infection -Patient's been self cathing -Currently not complaining of any urinary tract infection symptoms -However, with positive nitrates and 2+ leukocyte Estrace concern for complicated urinary tract infection -Will treat with 1 g Rocephin daily and monitor urine culture Urinary retention -Spence catheter Ground-level fall with trauma -No evidence of syncope Plan: Admit patient to the MedSur unit Bed rest SCDs to bilateral lower extremity Consult to orthopedic team Cardiac diet and n.p.o. after midnight CBC/BMP daily Normal saline at 75 mL is now 40 mg Lovenox subcu daily for DVT prophylax 5 mg [place] p.o. every 4 hours for moderate pain 2 mg morphine IV push every 4 hours Imani rib pain 4 mg Zofran IV push to 8 hours. Nausea vomiting/full code I discussed this case with attending physician Dr. Talley and I look forward to more input
--- NOTE | 2024-10-04 21:13 | PC.NURSE ---
Patient arrived to floor via stretcher from ED at 21:04.
--- NOTE | 2024-10-04 21:20 | PC.NURSE ---
person to contact : , Charu Adorno [facility] [phone] home [phone]
[2024-10-04] MEDS: 0.9 % SODIUM CHLORIDE 1000ML 1,000 ML 75 ML IV (21:40)
[2024-10-04] MEDS: CEFTRIAXONE SODIUM 1 GM in 0.9 % SODIUM CHLORIDE 50 ML IV (21:41)
--- NOTE | 2024-10-04 21:54 | PC.NURSE ---
bringing in home meds tomorrow
[2024-10-04] MEDS: MORPHINE 2MG/ML SYRINGE 2 MG IV (22:04)
[2024-10-04] MEDS: HYDROCODONE/APAP 5/325 MG TABLET 1 TAB PO (23:04)
[2024-10-05] VITALS (17 sets, daily range): BP systolic 134–198; BP diastolic 67–114; PULSE 81–108; RESP 16–22; TEMP 36.4–36.9; O2SAT 91–98; BMI 19.4
--- NOTE | 2024-10-05 | XR_ITS ---
FINAL REPORT CLINICAL HISTORY: RIGHT HIP IN OR 12.15 mgy and 1.0 min of fl FINDINGS: FLUOROSCOPY LESS THAN 1 HOUR HISTORY: Fluoroscopy guidance. FINDINGS: Fluoroscopic guidance was provided for right hip in the OR. Three spot films were obtained. A total of 1.0 minutes of fluoroscopy time were used. DAP: 12.15 mGy IMPRESSION: As above. Reviewed, Interpreted and Dictated by Lily Portillo MD Transcribed by Aliya Salcedo Authenticated and [facility]
--- NOTE | 2024-10-05 00:33 | PC.NURSE ---
patients oxygen dropped to 85% on RA. placed on 2L NC for sats >90%
[2024-10-05] MEDS: MORPHINE 2MG/ML SYRINGE 2 MG IV ×3 (05:22→22:04)
--- NOTE | 2024-10-05 05:40 | PC.NURSE ---
oxygen turned off at 0530, O2 sat 96% RA
[2024-10-05 06:15] LABS: Basophils % 0.5 % (0.1-2.0); Eosinophils # 0.2 K/mm3 (0.0-0.4); Eosinophils % 3.4 % (0.1-12.0); Hemoglobin 10.9 g/dL (14.1-18.0); Lymphocytes # 0.6 K/mm3 (0.7-4.5); Lymphocytes % 9.8 % (10-50); Mean Corpuscular HGB Conc 34.1 g/dL (31.8-35.4); Mean Corpuscular Hemoglobin 31.4 pg (27.0-31.2); Mean Corpuscular Volume 92.2 fl (80-94); Mean Platelet Volume 11.7 fl (7.4-10.4); Monocytes # 0.8 K/mm3 (0.1-1.0); Monocytes % 12.8 % (1.7-9.3); Neutrophils # 4.8 K/mm3 (1.8-7.8); Neutrophils % 73.2 % (37.0-80.0); Platelet Count 143 K/mm3 (142-424); Red Blood Count 3.47 M/mm3 (4.60-6.20); Red Cell Distribution Width 12.4 % (11.5-17.5); White Blood Count 6.5 K/mm3 (4.8-10.8)
[2024-10-05 06:21] LABS: Blood Urea Nitrogen 26 mg/dl (9-20); Calcium 8.7 mg/dl (8.4-10.2); Carbon Dioxide 28 mmol/L (22.0-30.0); Chloride 105 mmol/L (98-107); Creatinine Clearance Estimated 44 mL/min (50-200); Estimated Glomerular Filt Rate 92 ml/min (>60); GFR (African American) 111 ML/MIN (>60); Glucose 115 mg/dl (74-100); Sodium 137 mmol/L (136-145)
--- NOTE | 2024-10-05 07:22 | HMH.PHAINT1 ---
Pharmacy Intervention Comments: MEDICATION RECONCILIATION COMPLETED ON PATIENT USING EXTERNAL FILL HISTORY FROM PHARMACY. -LUCIA BAKER, MERLENED
--- NOTE | 2024-10-05 08:19 | EXP.ORTH.CON ---
Documented by User: LUCÍA Goode 10/05/24 08:33 History of Present Illness *Admission Date: 10/04/24 *History of present illness: This is an 84-year-old male who has a past medical history significant for aortic valve stenosis with TAVR, hypertension, CVA, hyperlipidemia, heart murmur, colon cancer, and sarcoma presenting with R displaced IT fracture s/p mechanical fall at home while walking down the driveway. Was seen in the ER that night, where XR confirmed diagnosis and orthopedics was consulted. Today, patient states that pain is well-controlled with pain medications, localized to the lateral aspect of the R hip without radiation, described as an aching pain with stabbing pain with movement. He walks without any devices at home, but states he has mild R sided hemiparesis from h/o 32 strokes after TAVR several years ago. 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 [facility] Disclaimer: The information contained in this section may have been updated after the patient was seen, as this information can be updated by other users. 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 He is currently on gabapentin 2100mg po qd CVA (cerebrovascular accident) HTN (hypertension) Surgical History H/O hernia repair History of cataract surgery History of open heart surgery History of aortic valve replacement History of heart surgery History of cholecystectomy History of colon resection History of colonoscopy Family History Other Cancer Heart attack Social History (Updated 10/04/24 @ 21:29 by Marissa Kilgore RN) Smoking Status: Never smoker second hand exposure: No alcohol intake: never substance use type: denies use current occupational status: other Travel in the last 8 weeks: None household members: spouse housing: house lives independently: No marital status: 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 occupational exposures/hazards: No caffeine: Yes Have you lived/traveled outside US in past 30 days?: No Contact w/someone who lives/traveled outside US past 30 days?: No Exposure to someone with infectious disease in past 14 days?: No Do you have a fever (greater than 100.4 F or 38 C)?: No Have you tested positive for COVID-19: No Exposed to someone with COVID-19 in past 14 days?: No Do you have a sore throat?: No Do you have a cough?: No Do you have any weakness?: No Are you experiencing any nausea/vomitting?: No Do you have any diarrhea?: No Are you experiencing any unusual bleeding?: No Do you have any muscle aches/pain?: No Do you have any abdominal pain?: No Are you experiencing loss of taste or smell?: No Review of Systems *Neurologic Neurologic: Reports system reviewed and no additional complaints, except as documented Meds Home Medications and Allergies Home Medications ?Medication ?Instructions ?Recorded ?Confirmed ?Type lisinopril 10 mg tablet 10 mg PO DAILY 02/20/20 10/04/24 History omeprazole magnesium 20 mg 20 mg PO DAILY 03/03/24 10/04/24 History tablet,delayed release duloxetine 60 mg capsule,delayed 60 mg PO BID #60 caps 08/26/24 10/04/24 Rx release tamsulosin 0.4 mg capsule (Flomax) 0.4 mg PO DAILY 90 days #90 caps 09/12/24 10/04/24 Rx gabapentin 300 mg capsule 900 mg PO DAILY 10/04/24 10/05/24 History amlodipine 2.5 mg tablet 2.5 mg PO DAILY 10/05/24 10/05/24 History gabapentin 300 mg capsule 1,200 mg PO HS 10/05/24 10/05/24 History New Prescriptions to Start Prescriptions: Allergies Allergy/AdvReac Type Severity Reaction Status Date / Time No Known Allergies Allergy Verified 10/04/24 18:24 Ortho Exam (Inpt) Vital signs and Labs for Last 24 Hours: Temp Pulse Resp BP Pulse Ox O2 Del Method O2 Flow Rate 98.1 F 89 16 147/67 H 91 L Room Air 2 10/05/24 08:00 10/05/24 08:00 10/05/24 08:00 10/05/24 08:00 10/05/24 08:00 10/05/24 08:00 10/05/24 05:00 Laboratory Results - last 24 hr 10/04/24 18:50: WBC 8.8, RBC 3.79 L, Hgb 11.9 L, Hct 34.5 L, MCV 91.0, MCH 31.4 H, MCHC 34.5, RDW 12.3, Plt Count 151, MPV 11.3 H, Neut % (Auto) 83.3 H, Lymph % (Auto) 4.4 L, [place] % (Auto) 10.6 H, Eos % (Auto) 1.1, Baso % (Auto) 0.3, Neut # (Auto) 7.3, Lymph # (Auto) 0.4 L, [place] # (Auto) 0.9, Eos # (Auto) 0.1, Baso # (Auto) 0.0, Sodium 135 L, Potassium 4.2, Chloride 100, Carbon Dioxide 31 H, Anion Gap 8.2, BUN 24 H, Creatinine 0.70, Estimated Creat Clear 45, Estimated GFR 107, Est GFR ( Amer) 130, Glucose 140 H, Calcium 9.2 10/05/24 05:24: WBC 6.5 D, RBC 3.47 L, Hgb 10.9 L, Hct 32.0 L, MCV 92.2, MCH 31.4 H, MCHC 34.1, RDW 12.4, Plt Count 143, MPV 11.7 H, Neut % (Auto) 73.2, Lymph % (Auto) 9.8 L, [place] % (Auto) 12.8 H, Eos % (Auto) 3.4, Baso % (Auto) 0.5, Neut # (Auto) 4.8, Lymph # (Auto) 0.6 L, [place] # (Auto) 0.8, Eos # (Auto) 0.2, Baso # (Auto) 0.0, Sodium 137, Potassium 4.0, Chloride 105, Carbon Dioxide 28, Anion Gap 8.0, BUN 26 H, Creatinine 0.80, Estimated Creat Clear 44, Estimated GFR 92, Est GFR ( Amer) 111, Glucose 115 H, Calcium 8.7 I & O for Labs for Last 24 Hours: Intake & Output 10/03/24 10/03/24 10/04/24 10/05/24 00:59 23:59 23:59 23:59 Intake Total 350 / 350 Output Total 275 / 275 Balance 75 / 75 Weight 58.332 kg 58.151 kg Additional findings:: R hip: NO erythema, edema, ecchymosis. TTP over GT area, nontender over groin. Grossly NVID with toes WWP, SILT 1st DWS/PA and +motor at EHL/FHL/GS/TA. Calves and thigh Soft. XR taken in ER show a displaced IT fracture with dispalced lesser troch. No lateral XR of proximal femur in femur or hip films. Results Labs 10/05/24 05:24 10/05/24 05:24 Labs: Abnormal lab results 10/04/24 10/05/24 Range/Units 18:50 05:24 RBC 3.79 L 3.47 L (4.60-6.20) M/mm3 Hgb 11.9 L 10.9 L (14.1-18.0) g/dL Hct 34.5 L 32.0 L (42.0-52.0) % MCH 31.4 H 31.4 H (27.0-31.2) pg MPV 11.3 H 11.7 H (7.4-10.4) fl Neut % (Auto) 83.3 H (37.0-80.0) % Lymph % (Auto) 4.4 L 9.8 L (10-50) % [place] % (Auto) 10.6 H 12.8 H (1.7-9.3) % Lymph # (Auto) 0.4 L 0.6 L (0.7-4.5) K/mm3 Sodium 135 L (136-145) mmol/L Carbon Dioxide 31 H (22.0-30.0) mmol/L BUN 24 H 26 H (9-20) mg/dl Glucose 140 H 115 H (74-100) mg/dl H & H 10/04/24 10/05/24 Range/Units 18:50 05:24 Hgb 11.9 L 10.9 L (14.1-18.0) g/dL Hct 34.5 L 32.0 L (42.0-52.0) % All other labs normal. Assessment and Plan *Assessment and plan (1) Intertrochanteric fracture of femur: Status: Acute Qualifiers: Encounter type: initial encounter Fracture alignment: nondisplaced Fracture type: closed Laterality: right Qualified Code(s): S72.144A - Nondisplaced intertrochanteric fracture of right femur, initial encounter for closed fracture Category: Medical Code(s): S72.143A - Displaced intertrochanteric fracture of unspecified femur, initial encounter for closed fracture Plan Plan is to perform R TFN today with Dr. Murphy. NPO until procedure today, ordered. T&S, INR ordered for this AM. NWB to RLE, bedrest until procedure Echo read pending per cardiology UTI: Rocephin ordered per medical team. Lovenox held. May resume POD#1 morning. 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 He is currently on gabapentin 2100mg po qd CVA (cerebrovascular accident) HTN (hypertension) Surgical History H/O hernia repair History of cataract surgery History of open heart surgery History of aortic valve replacement History of heart surgery History of cholecystectomy History of colon resection History of colonoscopy Family History Other Cancer Heart attack Social History (Updated 10/04/24 @ 21:29 by Marissa Kilgore RN) Smoking Status: Never smoker second hand exposure: No alcohol intake: never substance use type: denies use current occupational status: other Travel in the last 8 weeks: None household members: spouse housing: house lives independently: No marital status: 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 occupational exposures/hazards: No caffeine: Yes Have you lived/traveled outside US in past 30 days?: No Contact w/someone who lives/traveled outside US past 30 days?: No Exposure to someone with infectious disease in past 14 days?: No Do you have a fever (greater than 100.4 F or 38 C)?: No Have you tested positive for COVID-19: No Exposed to someone with COVID-19 in past 14 days?: No Do you have a sore throat?: No Do you have a cough?: No Do you have any weakness?: No Are you experiencing any nausea/vomitting?: No Do you have any diarrhea?: No Are you experiencing any unusual bleeding?: No Do you have any muscle aches/pain?: No Do you have any abdominal pain?: No Are you experiencing loss of taste or smell?: No Meds Home Medications and Allergies Home Medications ?Medication ?Instructions ?Recorded ?Confirmed ?Type lisinopril 10 mg tablet 10 mg PO DAILY 02/20/20 10/04/24 History omeprazole magnesium 20 mg 20 mg PO DAILY 03/03/24 10/04/24 History tablet,delayed release duloxetine 60 mg capsule,delayed 60 mg PO BID #60 caps 08/26/24 10/04/24 Rx release tamsulosin 0.4 mg capsule (Flomax) 0.4 mg PO DAILY 90 days #90 caps 09/12/24 10/04/24 Rx gabapentin 300 mg capsule 900 mg PO DAILY 10/04/24 10/05/24 History amlodipine 2.5 mg tablet 2.5 mg PO DAILY 10/05/24 10/05/24 History gabapentin 300 mg capsule 1,200 mg PO HS 10/05/24 10/05/24 History New Prescriptions to Start Prescriptions: Allergies Allergy/AdvReac Type Severity Reaction Status Date / Time No Known Allergies Allergy Verified 10/04/24 18:24 Results Labs 10/05/24 05:24 10/05/24 05:24 Assessment and Plan *Assessment and plan (1) Intertrochanteric fracture of femur: Status: Acute Qualifiers: Encounter type: initial encounter Fracture alignment: nondisplaced Fracture type: closed Laterality: right Qualified Code(s): S72.144A - Nondisplaced intertrochanteric fracture of right femur, initial encounter for closed fracture Category: Medical Code(s): S72.143A - Displaced intertrochanteric fracture of unspecified femur, initial encounter for closed fracture Plan Plan is to perform R TFN today with Dr. Murphy. NPO until procedure today, ordered. T&S, INR ordered for this AM. NWB to RLE, bedrest until procedure Echo read pending per cardiology UTI: Rocephin ordered per medical team. Lovenox held. May resume POD#1 morning. Hgb/Hct: 10.9/32, continue to monitor PROPOSED SURGERY: Cephalomedullary nail right proximal femur the risks and benefits of the proposed surgery were discussed in depth with the patient. Potential complications including inherent risk of anesthesia, infection, neurovascular damage, DVT, and rare but real potential loss of limb or life were all reviewed. Patient voices understanding and seems to understand to my satisfaction and wishes to proceed with surgery. I gave them adequate time to ask any questions they have pertaining to this surgery and answered all of them to the best of my ability. I gave them no guarantees in regards to outcomes of this surgery.
--- NOTE | 2024-10-05 08:30 | CA_ITS ---
APPROVED REPORT EXAM: Comprehensive 2D, Doppler, and color-flow Echocardiogram Roll Form Operator: Soha Harrison CRT Ht: 5 ft 8 in Wt: 130lbs BSA: 1.70 BP: 129/77 mmHg Indications: Pre-Op Femur fx, pt fell Thursday, TAVR X 2 2020, Open heart sx w AVR, 32 [place], colon ca and sarcoma, HTN, HLD, murmur pt flat on back 2D Dimensions LA Volume 40.10 mL LA Volume Index 23.00 mL/m2 (M/F) 16-34 M-Mode Dimensions RVDd 2.48 cm (0.9-2.6) LA Diam 4.07 cm (1.9-4.0) LVDd 4.00 cm (3.5-5.7) LVDs 2.61 cm (3.5-5.7) IVSd 1.74 cm (0.6-1.1) PWd 0.93 cm (0.6-1.1) EF (Teich) 64.60% FS 34.70% EDV (Teich) 70.00 mL TAPSE 1.56 (<1.7) ESV (Teich) 24.80 mL LV Diastology E Decel Time 150 (160-240 msec) E/A Ratio 0.72 MED A' 7.40 cm/s LAT A' 15.50 cm/s Aortic Valve ANGEL Index 1.18 cm2/m2 AoV Peak Steven. 222.0 (50-130 cm/s) AO Peak GR. 19.80 mmHg AO Mean GR. 10.70 (<5 mmHg) AO VTI 41.0 (18-25 cm) ANGEL (VTI) 2.06 (2.5-4.5 cm2) Mitral Valve MV E Max Steven. 86.0 (40-130 cm/s) MV A Velocity 119.0 (40-130 cm/s) E/A Ratio 0.72 MV PHT 44.0 ms Pulmonary Valve PV Peak Velocity 188.0 (50-150 cm/s) Tricuspid Valve TR P. Velocity 337.00 cm/s RAP Estimate 10.00 mmHg RVSP 55.50 mmHg Left Ventricle The left ventricle is normal size. The left ventricular systolic function is normal. The left ventricular ejection fraction is within the normal range. There is increased LV wall thickness. There is normal LV segmental wall motion. Diastolic function is indeterminate. LVEF is 55%. Right Ventricle Right ventricle is mildly dilated. The right ventricular systolic function is normal. Atria Left atrium is moderately dilated. Right atrium is mildly dilated. There is no Doppler evidence of interatrial shunt. Aortic Valve s/p AVR. The prosthesis is well-seated. Trace central aortic regurgitation. No paravalvular AI. Peak velocity 2.3 m/s. Mean AV gradient 10 mmHg. Max AV gradient 22 mmHg. Mitral Valve The mitral valve leaflets are mildly thickened. Mild mitral regurgitation. No evidence of mitral valve stenosis. Tricuspid Valve Tricuspid valve is grossly normal in structure and function. Moderate tricuspid regurgitation. RVSP is 36 mmHg + RA pressure. Pulmonic Valve The pulmonary valve is normal in structure. Mild pulmonic regurgitation. Great Vessels The aortic root is normal in size. The IVC is not well-visualized. Pericardium There is no pericardial effusion. Other Information Study Quality: Fair Conclusion Normal biventricular systolic function. Mild RV dilation. Biatrial dilation. s/p AVR (Peak velocity 2.3 m/s. Mean AV gradient 10 mmHg. Max AV gradient 22 mmHg). Trace central AI. Mild MR. Moderate TR. Elevated RVSP 36 mmHg + RA pressure. Electronically signed by : Lolis Boyce MD 10/05/2024 12:09:35
[2024-10-05 08:43] LABS: Microscopic, Urine URINE MICROSCOPIC (MICROSCOPIC)
[2024-10-05 09:15] LABS: Appearance,Urine Slightly Cloudy (Clear); Color,Urine Yellow (Yellow); PH,Urine 5.5 (5.0-8.5)
[2024-10-05 09:16] LABS: Glucose,Urine (UA) Negative (Negative); Ketones,Urine Negative (Negative); Protein,Urine 100 (Negative); Specific Gravity, Urine >= 1.030 (1.005-1.030)
[2024-10-05 09:17] LABS: Bilirubin,Urine Negative (Negative); Blood, Urine 2+ (Negative); Leukocyte Esterase,Urine Trace (Negative); Nitrate,Urine Negative (Negative); Urobilinogen,Urine 0.2 EU/dl (0.2)
[2024-10-05 09:17] LABS: INR 1.03 (0.9-1.1); Prothrombin Time 11.3 seconds (9.2-12.1)
[2024-10-05 09:18] LABS: Bacteria,Urine Trace /lpf
--- NOTE | 2024-10-05 09:45 | PC.NURSE ---
[facility] consult [facility] am due to pt possibly having hip surgery this afternoon
[2024-10-05] MEDS: 0.9 % SODIUM CHLORIDE 1000ML 1,000 ML 75 ML IV ×2 (11:11→23:18)
--- NOTE | 2024-10-05 11:13 | P.CONCA_ITS ---
History of Present Illness History of Present Illness Consult date: 10/05/24 Requesting physician: Cody Talley Consult reason: pre-op evaluation Chief complaint: fall, right hip fracture History of present illness: Hospitalist Note: This is an 84-year-old male who has a past medical history significant for aortic valve stenosis with TAVR, hypertension, known left bundle branch block, CVA, hyperlipidemia, heart murmur, colon cancer, and sarcoma who presents with a chief complaint of right hip pain. Due to patient's symptoms, he presented to the emergency room for evaluation. While in emergency room, plain films of the hip revealed a right hip fracture nondisplaced and impacted. Due to these findings, patient has been admitted for further management. During my evaluation of the patient, patient states he fell while in the garage holding milk. He is denying any lightheadedness or dizziness. On further questioning, patient states that he had a TEVAR procedure performed 4 years ago that unfortunately led to a hole in the heart leading to open heart surgery. Post open heart, patient states she has had approximately 32 strokes. He was recently evaluated by his manager helpdesk who states from a cardiology standpoint he was in good health. Patient voiced that he is able to walk to and from his mailbox without any shortness of breath and he can lift at least a gallon of mil k. He has had no recent stress test or heart cath. Patient also mentions that he has been experiencing urinary retention for the past 3 weeks or so and has had to self cath. He is currently denying any syncope, near syncope, lightheadedness, dizziness, chest pain, nausea, vomiting, shortness of breath, dyspnea, PND, orthopnea, lower extremity swelling, or diarrhea. Additional pertinent vitals obtained include a red blood cell count of 3.79, hemoglobin 9.9, hematocrit 34.5, neutrophils 83.2%, sodium 135, bicarb of 31, BUN 24, blood glucose 140,And urinalysis revealed 2+ protein/3+ occult blood/positive nitrates/2+ leukocyte Estrace/white blood cells 50-100. Cardiology Note: This is an 84 year old white male with a past medical history of aortic stenosis with TAVR leading to a hole in his heart that required open heart surgery for repair (4 years ago) who is currently awaiting surgical repair of a right nondisplaced, impacted right hip fracture. Patient reports he sees Dr. Sainz in [place] as his manager helpdesk, sees him regularly and is told his heart is in good shape. Patient reports he is physically active with no symptoms. 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 Cardiology was asked to evaluate for preop assessment. EKG today shows sinus rhythm at a rate of 87 with a known left bundle branch block present. Echocardiogram is pending. [facility] Disclaimer: The information contained in this section may have been updated after the patient was seen, as this information can be updated by other users. 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 He is currently on gabapentin 2100mg po qd CVA (cerebrovascular accident) HTN (hypertension) Surgical History H/O hernia repair History of cataract surgery History of open heart surgery History of aortic valve replacement History of heart surgery History of cholecystectomy History of colon resection History of colonoscopy Family History Other Cancer Heart attack Social History (Updated 10/04/24 @ 21:29 by Marissa Kilgore RN) Smoking Status: Never smoker second hand exposure: No alcohol intake: never substance use type: denies use current occupational status: other Travel in the last 8 weeks: None household members: spouse housing: house lives independently: No marital status: 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 occupational exposures/hazards: No caffeine: Yes Have you lived/traveled outside US in past 30 days?: No Contact w/someone who lives/traveled outside US past 30 days?: No Exposure to someone with infectious disease in past 14 days?: No Do you have a fever (greater than 100.4 F or 38 C)?: No Have you tested positive for COVID-19: No Exposed to someone with COVID-19 in past 14 days?: No Do you have a sore throat?: No Do you have a cough?: No Do you have any weakness?: No Are you experiencing any nausea/vomitting?: No Do you have any diarrhea?: No Are you experiencing any unusual bleeding?: No Do you have any muscle aches/pain?: No Do you have any abdominal pain?: No Are you experiencing loss of taste or smell?: No Review of Systems Review of Systems Review of systems:: pertinent systems reviewed and negative unless documented below *Neurologic Neurologic: Reports system reviewed and no additional complaints, except as documented Exam Data for Last 24 hours Vital signs and Labs for Last 24 Hours: Temp Pulse Resp BP Pulse Ox O2 Del Method O2 Flow Rate 98.1 F 89 16 147/67 H 91 L Room Air 2 10/05/24 08:00 10/05/24 08:00 10/05/24 08:00 10/05/24 08:00 10/05/24 08:00 10/05/24 10:48 10/05/24 05:00 Laboratory Results - last 24 hr 10/04/24 18:50: WBC 8.8, RBC 3.79 L, Hgb 11.9 L, Hct 34.5 L, MCV 91.0, MCH 31.4 H, MCHC 34.5, RDW 12.3, Plt Count 151, MPV 11.3 H, Neut % (Auto) 83.3 H, Lymph % (Auto) 4.4 L, [place] % (Auto) 10.6 H, Eos % (Auto) 1.1, Baso % (Auto) 0.3, Neut # (Auto) 7.3, Lymph # (Auto) 0.4 L, [place] # (Auto) 0.9, Eos # (Auto) 0.1, Baso # (Auto) 0.0, Sodium 135 L, Potassium 4.2, Chloride 100, Carbon Dioxide 31 H, Anion Gap 8.2, BUN 24 H, Creatinine 0.70, Estimated Creat Clear 45, Estimated GFR 107, Est GFR ( Amer) 130, Glucose 140 H, Calcium 9.2 10/05/24 05:24: WBC 6.5 D, RBC 3.47 L, Hgb 10.9 L, Hct 32.0 L, MCV 92.2, MCH 31.4 H, MCHC 34.1, RDW 12.4, Plt Count 143, MPV 11.7 H, Neut % (Auto) 73.2, Lymph % (Auto) 9.8 L, [place] % (Auto) 12.8 H, Eos % (Auto) 3.4, Baso % (Auto) 0.5, Neut # (Auto) 4.8, Lymph # (Auto) 0.6 L, [place] # (Auto) 0.8, Eos # (Auto) 0.2, Baso # (Auto) 0.0, Sodium 137, Potassium 4.0, Chloride 105, Carbon Dioxide 28, Anion Gap 8.0, BUN 26 H, Creatinine 0.80, Estimated Creat Clear 44, Estimated GFR 92, Est GFR ( Amer) 111, Glucose 115 H, Calcium 8.7 10/05/24 08:39: Urine Color Yellow, Urine Appearance Slightly cloudy, Urine pH 5.5, Ur Specific [place] >= 1.030, Urine Protein 100, Urine Glucose (UA) Negative, Urine Ketones Negative, Urine Blood 2+ A, Urine Nitrate Negative, Urine Bilirubin Negative, Urine Urobilinogen 0.2, Ur Leukocyte Esterase Trace A, Urine RBC 10-20, Urine WBC 10-20, Ur Squamous Epith Cells 3-5, Urine Bacteria Trace 10/05/24 08:50: PT 11.3, INR 1.03, Blood Type A Positive, Antibody Screen Negative I & O for Last 24 hours: Intake & Output 10/03/24 10/03/24 10/04/24 10/05/24 00:59 23:59 23:59 23:59 Intake Total 350 / 350 Output Total 295 / 295 Balance 55 / 55 Weight 128 lb 9.6 oz 128 lb 3.2 oz Constitutional Constitutional: no acute distress *Routine Respiratory Exam Respiratory: Present CTA bilaterally and symmetric chest movement *Routine Cardiovascular Exam Cardiovascular: Present RRR, Normal S1, Normal S2 and murmur *Routine Abdominal Exam Abdominal: Present soft and normoactive bowel sounds; Absent tenderness *Routine Extremities Exam Extremities: Present full ROM and normal capillary refill; Absent edema *Routine Skin Exam Skin: Present intact, dry and warm Detailed Neck Exam: Thyroids Thyroid: Absent bruit Meds Home Medications and Allergies Home Medications ?Medication ?Instructions ?Recorded ?Confirmed ?Type lisinopril 10 mg tablet 10 mg PO DAILY 02/20/20 10/04/24 History omeprazole magnesium 20 mg 20 mg PO DAILY 03/03/24 10/04/24 History tablet,delayed release duloxetine 60 mg capsule,delayed 60 mg PO BID #60 caps 08/26/24 10/04/24 Rx release tamsulosin 0.4 mg capsule (Flomax) 0.4 mg PO DAILY 90 days #90 caps 09/12/24 10/04/24 Rx gabapentin 300 mg capsule 900 mg PO DAILY 10/04/24 10/05/24 History amlodipine 2.5 mg tablet 2.5 mg PO DAILY 10/05/24 10/05/24 History gabapentin 300 mg capsule 1,200 mg PO HS 10/05/24 10/05/24 History New Prescriptions to Start Prescriptions: Allergies Allergy/AdvReac Type Severity Reaction Status Date / Time No Known Allergies Allergy Verified 10/04/24 18:24 Assessment and Plan *Assessment and plan (1) History of aortic stenosis: Status: Acute Category: Medical Code(s): Z86.79 - Personal history of other diseases of the circulatory system (2) History of left bundle branch block: Status: Acute Category: Medical Code(s): Z86.79 - Personal history of other diseases of the circulatory system (3) S/P TAVR (transcatheter aortic valve replacement): Status: Acute Category: Surgical Code(s): Z95.2 - Presence of prosthetic heart valve Plan History of aortic stenosis History of TAVR History of hole in heart surgically repaired Known left bundle branch block EKG is normal sinus rhythm with a left bundle branch block present Patient reports good functional capacity Echocardiogram: Normal biventricular systolic function, mild RV dilation and atrial dilation. Status post AVR. Trace central AI. Mild MR, moderate TR. Elevated RVSP at 36. CV summary 10/05/2024: The patient is considered at moderate operative risk, this risk is non-modifiable at this time and is unlikely to be further mitigated by additional pre-operative cardiac work-up. Accordingly, and if deemed surgically feasible, the patient may undergo surgery without additional cardiac testing.? Post-operative, routine care is recommended. Cardiology will sign off. Please contact service for any additional concerns.
--- NOTE | 2024-10-05 13:08 | P.PN_ITS ---
Subjective *Date: 10/05/24 *Time: 14:02 Interval history: Patient lying comfortably in bed, but does endorse right hip pain with movement. He states he is ready for surgery. No acute complaints. Exam Data for Last 24 hours Vital signs and Labs for Last 24 Hours: Temp Pulse Resp BP Pulse Ox O2 Del Method O2 Flow Rate 98.1 F 89 16 147/67 H 91 L Room Air 2 10/05/24 08:00 10/05/24 08:00 10/05/24 08:00 10/05/24 08:00 10/05/24 08:00 10/05/24 13:01 10/05/24 05:00 Laboratory Results - last 24 hr 10/04/24 18:50: WBC 8.8, RBC 3.79 L, Hgb 11.9 L, Hct 34.5 L, MCV 91.0, MCH 31.4 H, MCHC 34.5, RDW 12.3, Plt Count 151, MPV 11.3 H, Neut % (Auto) 83.3 H, Lymph % (Auto) 4.4 L, [place] % (Auto) 10.6 H, Eos % (Auto) 1.1, Baso % (Auto) 0.3, Neut # (Auto) 7.3, Lymph # (Auto) 0.4 L, [place] # (Auto) 0.9, Eos # (Auto) 0.1, Baso # (Auto) 0.0, Sodium 135 L, Potassium 4.2, Chloride 100, Carbon Dioxide 31 H, Anion Gap 8.2, BUN 24 H, Creatinine 0.70, Estimated Creat Clear 45, Estimated GFR 107, Est GFR ( Amer) 130, Glucose 140 H, Calcium 9.2 10/05/24 05:24: WBC 6.5 D, RBC 3.47 L, Hgb 10.9 L, Hct 32.0 L, MCV 92.2, MCH 31.4 H, MCHC 34.1, RDW 12.4, Plt Count 143, MPV 11.7 H, Neut % (Auto) 73.2, Lymph % (Auto) 9.8 L, [place] % (Auto) 12.8 H, Eos % (Auto) 3.4, Baso % (Auto) 0.5, Neut # (Auto) 4.8, Lymph # (Auto) 0.6 L, [place] # (Auto) 0.8, Eos # (Auto) 0.2, Baso # (Auto) 0.0, Sodium 137, Potassium 4.0, Chloride 105, Carbon Dioxide 28, Anion Gap 8.0, BUN 26 H, Creatinine 0.80, Estimated Creat Clear 44, Estimated GFR 92, Est GFR ( Amer) 111, Glucose 115 H, Calcium 8.7 10/05/24 08:39: Urine Color Yellow, Urine Appearance Slightly cloudy, Urine pH 5.5, Ur Specific [place] >= 1.030, Urine Protein 100, Urine Glucose (UA) Negative, Urine Ketones Negative, Urine Blood 2+ A, Urine Nitrate Negative, Urine Bilirubin Negative, Urine Urobilinogen 0.2, Ur Leukocyte Esterase Trace A, Urine RBC 10-20, Urine WBC 10-20, Ur Squamous Epith Cells 3-5, Urine Bacteria Trace 10/05/24 08:50: PT 11.3, INR 1.03, Blood Type A Positive, Antibody Screen Negative I & O for Last 24 hours: Intake & Output 10/03/24 10/03/24 10/04/24 10/05/24 00:59 23:59 23:59 23:59 Intake Total 350 / 350 Output Total 295 / 295 Balance 55 / 55 Weight 58.332 kg 58.151 kg Constitutional Constitutional: no acute distress *Routine HEENT Exam Head: Present normocephalic Eye: Present EOMI and PERRL ENT: Present mucous membranes moist *Routine Neck Exam Neck: Present supple; Absent lymphadenopathy *Routine Respiratory Exam Respiratory: Present CTA bilaterally *Routine Cardiovascular Exam Cardiovascular: Present RRR *Routine Abdominal Exam Abdominal: Present soft and normoactive bowel sounds; Absent tenderness *Routine Extremities Exam Extremities: Absent cyanosis or clubbing Comments: Swelling, tenderness over right hip. *Routine Skin Exam Skin: Present warm; Absent rash *Routine Neurological Exam Neurological: Present alert and oriented X3 Assessment and Plan *Assessment and plan (1) S/P TAVR (transcatheter aortic valve replacement): Status: Acute Category: Surgical Code(s): Z95.2 - Presence of prosthetic heart valve (2) History of left bundle branch block: Status: Acute Category: Medical Code(s): Z86.79 - Personal history of other diseases of the circulatory system (3) History of aortic stenosis: Status: Acute Category: Medical Code(s): Z86.79 - Personal history of other diseases of the circulatory system (4) UTI (urinary tract infection): Status: Acute Qualifiers: Urinary tract infection type: site unspecified Hematuria presence: without hematuria Qualified Code(s): N39.0 - Urinary tract infection, site not specified Category: Medical Code(s): N39.0 - Urinary tract infection, site not specified (5) Fall: Status: Acute Qualifiers: Encounter type: initial encounter Qualified Code(s): W19.XXXA - Unspecified fall, initial encounter Category: Medical Code(s): W19.XXXA - Unspecified fall, initial encounter (6) Intertrochanteric fracture of femur: Status: Acute Qualifiers: Encounter type: initial encounter Fracture alignment: nondisplaced Fracture type: closed Laterality: right Qualified Code(s): S72.144A - Nondisplaced intertrochanteric fracture of right femur, initial encounter for closed fracture Category: Medical Code(s): S72.143A - Displaced intertrochanteric fracture of unspecified femur, initial encounter for closed fracture Plan Francesco Adorno is a 84-year-old male who fell on his right hip trying to get out of his car with milk and was admitted for right comminuted displaced intertrochanteric fracture. #Recurrent falls #Right comminuted displaced intertrochanteric fracture ? Orthopedic surgery consulted, plan for cephalomedullary nailing of right proximal femur today. Cardiology consulted, patient is moderate and acceptable risk for procedure. ? Will follow-up on postoperative weightbearing status, DVT prophylaxis with orthopedic surgery. ? Plan for PT/OT tomorrow, and skilled rehab placement thereafter. ? Bedrest until procedure. ? Tylenol, [place], morphine for pain control. #UTI ? UA abnormal, urine culture pending. ? IV ceftriaxone day 1. 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 Patient reports iatrogenic along the heart during TAVR procedure that could not be repaired with open heart surgery. States he has had multiple TIAs since then. ? Aspirin, statin. Full code DVT prophylaxis: Holding for procedure today.
--- NOTE | 2024-10-05 16:30 | PC.NURSE ---
Pt's is starting to get upset that pt still has not been down for surgery. Pt and updated that surgery is still the plan this evening and that if plans change they will be updated as soon as possible. Pt has been medicated x1 for pain this shift. remains alert and oriented. lung sounds clear.
--- NOTE | 2024-10-05 16:54 | PC.NURSE ---
Pt and family have been updated by [facility] that pt would not be taken down for procedure for at least another hour. has voiced that she is upset that it is getting late and that it is taking so long. Pt and family kept up to date as best as possible as nursing staff has been updated.
--- NOTE | 2024-10-05 17:15 | EXP.ANES.CKL ---
[facility] Disclaimer: The information contained in this section may have been updated after the patient was seen, as this information can be updated by other users. 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 He is currently on gabapentin 2100mg po qd CVA (cerebrovascular accident) HTN (hypertension) Surgical History H/O hernia repair History of cataract surgery History of open heart surgery History of aortic valve replacement History of heart surgery History of cholecystectomy History of colon resection History of colonoscopy Family History Other Cancer Heart attack Social History (Updated 10/04/24 @ 21:29 by Marissa Kilgore RN) Smoking Status: Never smoker second hand exposure: No alcohol intake: never substance use type: denies use current occupational status: other Travel in the last 8 weeks: None household members: spouse housing: house lives independently: No marital status: 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 occupational exposures/hazards: No caffeine: Yes Have you lived/traveled outside [place] in past 30 days?: No Contact w/someone who lives/traveled outside US past 30 days?: No Exposure to someone with infectious disease in past 14 days?: No Do you have a fever (greater than 100.4 F or 38 C)?: No Have you tested positive for COVID-19: No Exposed to someone with COVID-19 in past 14 days?: No Do you have a sore throat?: No Do you have a cough?: No Do you have any weakness?: No Are you experiencing any nausea/vomitting?: No Do you have any diarrhea?: No Are you experiencing any unusual bleeding?: No Do you have any muscle aches/pain?: No Do you have any abdominal pain?: No Are you experiencing loss of taste or smell?: No [facility] Anesthesia Checklist Patient Identification Patient Identification: Arm Band Structural Data Admitted From: Inpatient Planned Operative Procedure/s: Right Femur Cephalomedullary Nailing Consent for Planned Operative Procedure(s) Verified: Yes Verified Documents: Surgical Consent and History and Physical NPO Status Verified Time NPO: 00:00 Additional verifications Anesthesia Reactions: No Hx Blood Transfusions: No Blood Transfusion Reaction: No Airway Assessment Mallampati Score:: Class II C-Spine Mobility Assessed: Yes TMJ Mobility Assessed: Yes Dentition: Poor Dentition Neurological Assessment Level of Consciousness: Awake, Alert and Appropriate Anesthesia Plan Anesthesia Risk discussed: Yes Anesthesia Plan: Verified ASA Class: III Anesthesia Type: General
[2024-10-05] MEDS: CEFAZOLIN 1GM VIAL 2 GM (19:20)
--- NOTE | 2024-10-05 20:56 | P.PNANES_ITS ---
[facility] Anesthesia Record Part I Anesthesia Record I Intake, IV Amount: 500 Hydration: Adequate Estimated blood loss (mL): 250 Urine output (mL): 300 Blood Products used (#): none Blood Pressure: 163/99 SaO2: 93 Pulse Rate: 98 Airway Patency: Patent Respiratory Rate: 16 Temperature: 98.5 F Patient is:: Awake, Stable and Other (Restless/agitated. Denies pain. Possible emergence delirium d/t age. Benadryl given.) Stable to PACU at:: 20:45
--- NOTE | 2024-10-05 21:03 | EXP.OP.NOTE ---
Date of procedure: 10/05/24 Pre-op Diagnosis:: Right hip intertrochanteric hip fracture Post-op Diagnosis:: Same Procedure performed:: Cephalomedullary nailing right proximal femur Surgeon:: Mike Murphy DO MOTOR AND GENERATOR BRUSH CUTTER:: Onelia Martinez Anesthesia: GETA Estimated blood loss (mL): 100 Operative findings:: See dictation Operative note:: Patient notified preoperatively. Right hip marked with yes my initials. Transferred operative suite placed final operating bed general anesthesia ministered airway secured. Then placed on the fracture table with the right hip in line traction left hip semilithotomy position. X-ray was brought in to reduce the fracture intertrochanteric hip fracture. Inline traction internal and external rotation was utilized. Reduction was performed with traction and internal rotation of the hip. Right hip was then prepped and draped in normal sterile fashion. Once prepped and draped final operative timeout performed to identify proper patient procedure and extremity. Everyone involved the case agreed. Is no counter indication beginning. Did receive preoperative antibiotics. X-ray was brought in the tip of the greater trochanter was marked a 2 fingerbreadth incision 2 fingerbreadths above the greater trochanter was made with skin knife. Palpation was taken down on the tip of the greater trochanter where the guidewire was placed. Under direct visualization of the x-ray the guidewire was placed through the tip of the greater trochanter down to the canal. This was confirmed on the AP and lateral views. Once guidewire in adequate position the opening reamer was utilized in the tip of the greater trochanter. This was followed by the 11 mm x 130 degree Synthes TFN nail which was placed over the guidewire and down into the femoral canal. This was impacted down to the proper depth and the 3 and 1 guide was placed for the helical blade. This was visualized on the AP and lateral views to be in proper trajectory in both views for the helical blade. It was measured lateral cortex reamer was utilized step reamer utilized and the helical blade was then impacted into place. This was then locked through the top of the nail and attention was then brought to the distal locking screw which was placed through the targeting guide and drilled bicortical and placed by hand this completed fixation of the intertrochanteric hip fracture the woods rider guide was removed pictures taken the AP and lateral views and saved irrigation of the wound performed. Deep layers of the IT band closed with 0 Vicryl suture subcutaneous with 2-0 Vicryl surgical clips in the skin for closure sterile dressing placed patient taken to recovery stable condition. Condition: stable Disposition: PACU Complications:: None apparent
[2024-10-05] MEDS: HYDROMORPHONE 2MG/ML SYRINGE IV (21:05)
--- NOTE | 2024-10-05 21:30 | PC.NURSE ---
Addendum entered by Yolanda Brewer RN 10/06/24 06:36: Restraints removed from pt @ 2330. Pt has since calmed and no longer a danger to himself and others. Alarm is set and active, Pt is resting well at this time. Original Note: Contacted Margarita Miranda APRN at this time, Pt back to room from surgery, as pt arrived to unit he was extremely confused and trying to get out of bed. Pt cursed staff and was combative with staff. Pt was a danger to himself, as well as others. Meds were given to comfort pt without any immediate results, Mittens were attempted but unsuccessful. Verbal order for soft limb restraints given, restraints applied. Alarm set and one on one monitoring was initiated.
[2024-10-05 21:47] LABS: ABG HCO3 21.5 mmhg (22.0-26.0); ABG Oxygen Saturation 95 % (90-100); ABG PCO2 39.1 mmhg (35.0-45.0); ABG PH 7.36 mmol/L (7.35-7.45); ABG PO2 78.9 mmhg (80-100); ABG TCO2 22.7 mmhg (23-27)
[2024-10-05] MEDS: METHOCARBAMOL 500MG TABLET 500 MG PO (22:04)
[2024-10-05 22:09] LABS: Allen's Test Acceptable; Oxygen 2LPM %; Source Right Radial
[2024-10-05] MEDS: ATORVASTATIN 40MG TABLET 40 MG PO (22:36)
[2024-10-05] MEDS: CEFAZOLIN SODIUM 2 GM in 0.9 % SODIUM CHLORIDE 100 ML IV (22:38)
--- NOTE | 2024-10-05 22:45 | PC.NURSE ---
pt arrived to floor from PACU via bed at 0.
[2024-10-05] MEDS: CEFTRIAXONE SODIUM 1 GM in 0.9 % SODIUM CHLORIDE 50 ML IV (23:17)
[2024-10-06] VITALS (15 sets, daily range): BP systolic 131–189; BP diastolic 71–108; PULSE 87–108; RESP 15–20; TEMP 36.4–36.9; O2SAT 95–99; BMI 20.2
--- NOTE | 2024-10-06 01:05 | PC.NURSE ---
contacted Margarita Miranda APRN with concerns of dysrhythmia, EKG obtained, No changes from previous EKG noted, Pt has BBB
--- NOTE | 2024-10-06 01:15 | ECG_ITS ---
APPROVED REPORT Exam: Resting ECG HR:97 bpm ECG Measurements Heart Rate 97 AXES AK 167 P 61 QRSd 168 QRS -55 QT 391 T 109 QTc 446 Conclusion SINUS RHYTHM LEFT AXIS DEVIATION [QRS AXIS < -30] LEFT BUNDLE BRANCH BLOCK [120+ ms QRS DURATION, 80+ ms Q/S IN V1/V2, 85+ ms R IN I/aVL/V5/V6] ABNORMAL ECG UNCONFIRMED REPORT Electronically signed by : Jarvis Paz MD 10/10/2024 08:53:16
[2024-10-06] MEDS: HYDROCODONE 10MG/APAP 325MG TAB 1 TAB PO ×4 (06:10→20:23)
[2024-10-06] MEDS: 0.9 % SODIUM CHLORIDE 1000ML 1,000 ML 75 ML IV ×2 (06:10→16:05)
[2024-10-06 06:21] LABS: Basophils % 0.1 % (0.1-2.0); Hematocrit 32.9 % (42.0-52.0); Hemoglobin 11.2 g/dL (14.1-18.0); Lymphocytes # 0.3 K/mm3 (0.7-4.5); Lymphocytes % 2.9 % (10-50); Mean Corpuscular Hemoglobin 31.5 pg (27.0-31.2); Mean Corpuscular Volume 92.4 fl (80-94); Mean Platelet Volume 11.2 fl (7.4-10.4); Monocytes # 0.3 K/mm3 (0.1-1.0); Monocytes % 3.6 % (1.7-9.3); Neutrophils # 8.3 K/mm3 (1.8-7.8); Neutrophils % 93.1 % (37.0-80.0); Platelet Count 178 K/mm3 (142-424); Red Blood Count 3.56 M/mm3 (4.60-6.20); Red Cell Distribution Width 11.9 % (11.5-17.5)
[2024-10-06 06:29] LABS: MANUAL DIFFERENTIAL MANUAL DIFFERENTIAL (MANUAL DIFF)
[2024-10-06 06:45] LABS: Alanine Aminotransferase 20 U/L (12-78); Albumin Level 3.4 g/dl (3.5-5.0); Albumin/Globulin Ratio 1.3 (1.1-1.8); Alkaline Phosphatase 82 U/L (38-126); Anion Gap 12.3 mEq/L (5-15); Aspartate Amino Transferase 26 U/L (17-59); Bilirubin,Total 0.8 mg/dl (0.2-1.3); Blood Urea Nitrogen 20 mg/dl (9-20); Calcium 8.7 mg/dl (8.4-10.2); Carbon Dioxide 25 mmol/L (22.0-30.0); Chloride 105 mmol/L (98-107); Creatinine Clearance Estimated 46 mL/min (50-200); Estimated Glomerular Filt Rate 107 ml/min (>60); GFR (African American) 130 ML/MIN (>60); Globulin 2.7 g/dL (1.3-3.2); Glucose 129 mg/dl (74-100); Potassium 4.3 mmoL/L (3.5-5.1); Sodium 138 mmol/L (136-145); Total Protein,Serum 6.1 g/dl (6.3-8.2)
[2024-10-06 07:15] LABS: Thyroid Stimulating Hormone 0.46 uIU/mL (0.465-4.68)
[2024-10-06 07:19] LABS: Lymphocytes % 4 % (10-50); Monocytes % 4 % (2-9); Neutrophils % 92 % (42-76); Platelet Estimate Normal; RBC Morphology Normal; Total Cells Counted 100
[2024-10-06 07:30] LABS: Chol/HDL Ratio 3.2 (1-3.5); Cholesterol 126 mg/dl (140-200); HDL Cholesterol 39 mg/dl (40-60); Triglycerides 47 mg/dl (30-150); VLDL Cholesterol 9 mg/dL (0-40)
--- NOTE | 2024-10-06 07:32 | EXP.ANES.II ---
[facility] Anesthesia Record Part II Anesthesia Record Part II Discharge Time: 21:10 Destination: Medical Surgical Department PACU nurse assessment reviewed?: Yes Patient Condition:: Good Anesthesia Complications:: None Swallowing reflex intact?: Yes Airway Patency: Patent Cyanosis?: No Blood Pressure: 189/108 (Pt. agitated) SaO2: 95 Respiratory Rate: 16 Pulse Rate: 108 Temperature: 98 F Mental Status: Alert & Oriented Pain level:: 0 Nausea and/or vomitting:: None Intake, IV Amount: 500 Hydration: Adequate
[2024-10-06 07:40] LABS: Direct LDL Cholesterol 69.24 mg/dL (100-129)
[2024-10-06 08:15] LABS: Vitamin B12 890 pg/mL (239-931)
--- NOTE | 2024-10-06 08:36 | PC.NURSE ---
Patient's O2 sats dropping to 85% while sleeping. states patient was instructed to wear CPAP in the past but refuses. O2 at 1L via nasal cannula applied while patient is sleeping with O2 sats increasing to 95%
--- NOTE | 2024-10-06 08:53 | PC.NURSE ---
Kym at bedside
[2024-10-06] MEDS: ENOXAPARIN 40MG/0.4ML SYRINGE 40 MG SUBCUT (08:55)
[2024-10-06] MEDS: ASPIRIN EC 81MG TABLET 81 MG PO (08:57)
--- NOTE | 2024-10-06 09:05 | P.PN_ITS ---
Subjective *Date: 10/12/24 *Time: 11:27 Interval history: Patient states pain is well-controlled with pain meds. Taz LYLE, dizziness, CP, SOB, N/V, calf pain, paresthesias. Ortho Exam (Inpt) Vital signs and Labs for Last 24 Hours: Temp Pulse Resp BP Pulse Ox O2 Del Method O2 Flow Rate 97.6 F 87 15 156/84 H 95 Nasal Cannula 1 10/06/24 07:51 10/06/24 07:51 10/06/24 07:51 10/06/24 07:51 10/06/24 07:51 10/06/24 08:47 10/06/24 08:47 Laboratory Results - last 24 hr 10/05/24 08:39: Urine Color Yellow, Urine Appearance Slightly cloudy, Urine pH 5.5, Ur Specific [place] >= 1.030, Urine Protein 100, Urine Glucose (UA) Negative, Urine Ketones Negative, Urine Blood 2+ A, Urine Nitrate Negative, Urine Bilirubin Negative, Urine Urobilinogen 0.2, Ur Leukocyte Esterase Trace A, Urine RBC 10-20, Urine WBC 10-20, Ur Squamous Epith Cells 3-5, Urine Bacteria Trace 10/05/24 08:50: PT 11.3, INR 1.03, Blood Type A Positive, Antibody Screen Negative 10/05/24 21:36: Specimen Source Right radial, O2 % 2lpm, ABG pH 7.36, ABG pCO2 39.1, ABG pO2 78.9 L, ABG HCO3 21.5 L, ABG Total CO2 22.7 L, ABG O2 Saturation 95, ABG Base Excess -4.0 L, Grey Test Acceptable 10/06/24 06:01: WBC 9.0 D, RBC 3.56 L, Hgb 11.2 L, Hct 32.9 L, MCV 92.4, MCH 31.5 H, MCHC 34.0, RDW 11.9, Plt Count 178, MPV 11.2 H, Neut % (Auto) 93.1 H, Lymph % (Auto) 2.9 L, [place] % (Auto) 3.6, Eos % (Auto) 0.0 L, Baso % (Auto) 0.1, Neut # (Auto) 8.3 H, Lymph # (Auto) 0.3 L, [place] # (Auto) 0.3, Eos # (Auto) 0.0, Baso # (Auto) 0.0, Total Counted 100, Neutrophils % (Manual) 92 H, Lymphocytes % (Manual) 4 L, Monocytes % (Manual) 4, Platelet Estimate Normal, RBC Morphology Normal, Sodium 138, Potassium 4.3, Chloride 105, Carbon Dioxide 25, Anion Gap 12.3, BUN 20, Creatinine 0.70, Estimated Creat Clear 46, Estimated GFR 107, Est GFR ( Amer) 130, Glucose 129 H, Calcium 8.7, Total Bilirubin 0.8, AST 26, ALT 20, Alkaline Phosphatase 82, Total Protein 6.1 L, Albumin 3.4 L, Globulin 2.7, Albumin/Globulin Ratio 1.3, Triglycerides 47, Cholesterol 126 L, LDL Cholesterol Direct 69.24 L, VLDL Cholesterol 9, HDL Cholesterol 39 L, Chol esterol/HDL Ratio 3.2, Vitamin B12 890, Folate 13.50, TSH 0.46 L I & O for Labs for Last 24 Hours: Intake & Output 10/03/24 10/04/24 10/05/24 10/06/24 23:59 23:59 23:59 23:59 Intake Total 850 / 1120 1495 / 1495 Output Total 295 / 295 675 / 675 Balance 555 / 825 820 / 820 Weight 58.332 kg 58.151 kg 60.419 kg Additional findings:: R hip: Dressing CDI. Thigh and calf SNT. Grossly NVID with SILT 1st DWS/PA, + motor EHL/FHL/GS/TA. +2 RP. Assessment and Plan *Assessment and plan (1) Intertrochanteric fracture of femur: Status: Acute Qualifiers: Encounter type: initial encounter Fracture alignment: nondisplaced Fracture type: closed Laterality: right Qualified Code(s): S72.144A - Nondisplaced intertrochanteric fracture of right femur, initial encounter for closed fracture Category: Medical Code(s): S72.143A - Displaced intertrochanteric fracture of unspecified femur, initial encounter for closed fracture Plan s/p R TFN POD#1 PT/OT: WBAT to RLE with devices PRN ambulation DVT ppx: Lovenox 40 mg SQ QD, ASA 81 QD, SCDs BLE Ice and elevation PRN swelling/pain Encourage IS. Hgb/Hct: 11.2/32.9, monitor with daily labs. Pain control PRN UTI: Rocephin ordered per medical team.
--- NOTE | 2024-10-06 09:21 | SW/DCPLANNER ---
Addendum entered by Lucía Storey 10/07/24 08:54: Per [facility] patient has been approved SNF level of care. Addendum entered by Lucía Storey 10/06/24 13:04: [facility] stated a prior auth will be started today. Addendum entered by Lucía Storey 10/06/24 11:28: [facility]/ [facility] stated that patient does have in network benefits w/ their facility. [facility] is interested in patient and will start prior auth once PT evaluation is faxed. I will continue to update patient, family, MD and [facility]. Original Note: I spoke w/ this patient regarding plans once medically stable for discharge. PT/OT will evaluate patient this AM. Patient stated that if SNF level of care is needed at time of discharge he prefers [facility]. Patient information has been faxed to [facility] at this time regarding benefits/coverage. Patient is unsure preferred facility if [facility] can not accept and asked that I contact his regarding placement. I will follow up w/ patient once PT/OT evaluation is completed and [facility] reviews information. Discharge date is unknown at this time.
[2024-10-06 09:29] LABS: Ferritin 98.6 ng/ml (17.9-464); Free T4 (Free Thyroxine) 1.41 ng/dl (0.78-2.19)
[2024-10-06] MEDS: MORPHINE 2MG/ML SYRINGE 2 MG IV ×4 (09:33→22:10)
--- NOTE | 2024-10-06 10:12 | HMH.OTEV ---
OT Inpatient Evaluation Rehab OT IP Evaluation Start: 10/06/24 08:04 Freq: ONCE Status: Active Protocol: Document 10/06/24 10:06 EDILBERTO (Rec: 10/06/24 10:12 [email or web address] [id number]) Rehab OT IP Assessment Subjective History Patient is s/p: Cephalomedullary nailing right proximal femur Operative note:: Patient notified preoperatively. Right hip marked with yes my initials. Transferred operative suite placed final operating bed general anesthesia ministered airway secured. Then placed on the fracture table with the right hip in line traction left hip semilithotomy position. X-ray was brought in to reduce the fracture intertrochanteric hip fracture . Inline traction internal and external rotation was utilized. Reduction was performed with traction and internal rotation of the hip. Right hip was then prepped and draped in normal sterile fashion. Once prepped and draped final operative timeout performed to identify proper patient procedure and extremity. Everyone involved the case agreed. Is no counter indication beginning. Did receive preoperative antibiotics. X-ray was brought in the tip of the greater trochanter was marked a 2 fingerbreadth incision 2 fingerbreadths above the greater trochanter was made with skin knife. Palpation was taken down on the tip of the greater trochanter where the guidewire was placed. Under direct visualization of the x-ray the guidewire was placed through the tip of the greater trochanter down to the canal. This was confirmed on the AP and lateral views. Patient lives with in 1 story home with 1-2 COLTEN. Independent with ADLs and fx'l mobility. Continues to drive. Subjective I can get up. Instructed Patient on proper hand and foot placement to completed bed mobility from supine->sit @ EOB->SPT requiring Min A with usage of RW. Patient maneuver throughout room with ~30ft. left patient sitting upright in room. Objective Patient Orientation Person,Place,Name Right Upper Extremity Gross ROM WFL Left Upper Extremity Gross ROM WFL Assist Level Minimal x 1 (25% assist) Transfer Training Sit/Stand/Step Transfer Assist Level Minimal x 1 (25% assist) Chair Transfer Ability Minimal x 1 (25% assist) Chair Transfer Technique Stand Step Pivot Chair Transfer Assistive Devices Rolling Walker Rehab OT IP prob,goals,plan Problems Date of Evaluation: 10/06/24 OT IP Problems Bed Mobility,Transfers,Balance ,Self care,Safety Rehab Potential Rehab Potential Good Equipment Needs Assistive Devices Rolling / Wheeled Walker Plan OT intervention Plan Bed Mobility,Transfers,Balance ,Self care,Safety,Therapeutic Exercise OT Plan Frequency Daily Duration LOS Discharge Goals Bed Mobility Ability Assistance x1 Sit to Stand Chair Transfer Ability Contact Guard/Hand Hold Chair Transfer Ability Contact Guard/Hand Hold Chair Transfer Technique Sit to/from Ambulatory Chair Transfer Assistive Devices Rolling Walker Discharge Plan OT Discharge Plan Recommend patient to return home with either HH services or OP services at this time. Patient to continue skilled OT IP services while here at [facility] . Eval Complexity Eval Charge Codes 53584 - Low Complexity PHYSICIAN CERTIFICATION: I certify the specified therapy services for Francesco Adorno are required, authorized, and reviewed every 30 days.
[2024-10-06] MEDS: METHOCARBAMOL 500MG TABLET 500 MG PO ×2 (11:15→20:23)
--- NOTE | 2024-10-06 12:04 | HMH.PTEV ---
Physical Therapy Evaluation Rehab PT IP Evaluation Start: 10/05/24 21:01 Freq: ONCE Status: Active Protocol: Document 10/06/24 09:35 [email or web address] (Rec: 10/06/24 12:04 PHODONALD [id number]) Subjective/History History History 84-year-old male who has a past medical history significant for aortic valve stenosis with TAVR, hypertension, CVA, hyperlipidemia, heart murmur, colon cancer, and sarcoma who presents with a chief complaint of right hip pain. Due to patient's symptoms, he presented to the emergency room for evaluation. While in emergency room, plain films of the hip revealed a right hip fracture nondisplaced and impacted. Due to these findings, patient has been admitted for further management. Pt now S/P R femur IMN. He reports he lives with his , 1-2 COLTEN the home, and he is generally independent with all mobility with a cane as needed. Subjective Subjective He reports feeling sore in his hip as expected, agrees to mobility assessment this am. [facility] How much help from another person do you currently need... Turning from your back to your side A little while in a flat bed without using bedrails? Moving from lying on back to sitting on A little the side of a flat bed without using bedrails? Moving to and from a bed to a chair ( A little including a wheelchair)? Standing up from a chair using your arms A little ? (e.g., wheelchair, bedside chair) Walking in hospital room? A little Climbing 3-5 steps with a railing? A little Mobility Score 18 Mobility Level [facility] Mobility Calculator Mobility 6 Walk 10 steps or more Rehab PT IP Eval Objective Appearance Patient Behavior Cooperative Patient Orientation Person,Place,Name Difficulty following instructions none Speech Pattern Clear Ambulation Patient Able to Ambulate Yes Ambulation Observation IP General Gait Pattern Observation Antalgic Gait,Shuffling Step Ambulation Distance (feet) 15 Ambulation Assistive Device Rolling Walker Ambulation Ability Minimal x 1 (25% assist) Balance Ability to Arise Able, uses arms to help Sitting Balance Steady, safe Standing Balance Steady, wide stance Dynamic Sitting Balance Ability Good Transfers Bed Transfer Ability Minimal x 1 (25% assist) Chair Transfer Ability Minimal x 1 (25% assist) Sit to Stand Bed Transfer Ability Minimal x 1 (25% assist) Sit to Stand Chair Transfer Ability Minimal x 1 (25% assist) Rehab PT IP prob,goals,plan Problems Date of Evaluation: 10/06/24 PT IP Problems Bed Mobility,Transfers,Gait Rehab Potential Rehab Potential Good Plan PT Intervention Plan Bed Mobility,Transfers,Gait, Therapeutic Exercise PT Plan Frequency BID Duration LOS Discharge Goals Bed Transfer Ability Contact Guard/Hand Hold Sit to Stand Chair Transfer Ability Contact Guard/Hand Hold Ambulation Assistive Device Rolling Walker Ambulation Distance (feet) 25 Discharge Plan PT Discharge Plan Pt is currently most appropriate for rehab placement once medically stable for d/c. Skilled inpatient acute therapy services are indicated to improve transfers and ambulation in order to return pt to [facility]. Eval Complexity Eval Charge Codes 18764 - High Complexity PHYSICIAN CERTIFICATION: I certify the specified therapy services for Francesco Adorno are required, authorized, and reviewed every 30 days.
[2024-10-06 12:07] LABS: Hemoglobin A1C 5.2 % (4.0-6.0)
--- NOTE | 2024-10-06 16:00 | HMH.OTEV ---
OT Inpatient Evaluation Rehab OT IP Evaluation Start: 10/06/24 08:04 Freq: ONCE Status: Active Protocol: Document 10/06/24 10:06 EDILBERTO (Rec: 10/06/24 10:12 EDILBERTO [id number]) Rehab OT IP Assessment Subjective History Patient is s/p: Cephalomedullary nailing right proximal femur Operative note:: Patient notified preoperatively. Right hip marked with yes my initials. Transferred operative suite placed final operating bed general anesthesia ministered airway secured. Then placed on the fracture table with the right hip in line traction left hip semilithotomy position. X-ray was brought in to reduce the fracture intertrochanteric hip fracture . Inline traction internal and external rotation was utilized. Reduction was performed with traction and internal rotation of the hip. Right hip was then prepped and draped in normal sterile fashion. Once prepped and draped final operative timeout performed to identify proper patient procedure and extremity. Everyone involved the case agreed. Is no counter indication beginning. Did receive preoperative antibiotics. X-ray was brought in the tip of the greater trochanter was marked a 2 fingerbreadth incision 2 fingerbreadths above the greater trochanter was made with skin knife. Palpation was taken down on the tip of the greater trochanter where the guidewire was placed. Under direct visualization of the x-ray the guidewire was placed through the tip of the greater trochanter down to the canal. This was confirmed on the AP and lateral views. Patient lives with in 1 story home with 1-2 COLTEN. Independent with ADLs and fx'l mobility. Continues to drive. Subjective I can get up. Instructed Patient on proper hand and foot placement to completed bed mobility from supine->sit @ EOB->SPT requiring Min A with usage of RW. Patient maneuver throughout room with ~30ft. left patient sitting upright in room. Objective Patient Orientation Person,Place,Name Right Upper Extremity Gross ROM WFL Left Upper Extremity Gross ROM WFL Assist Level Minimal x 1 (25% assist) Transfer Training Sit/Stand/Step Transfer Assist Level Minimal x 1 (25% assist) Chair Transfer Ability Minimal x 1 (25% assist) Chair Transfer Technique Stand Step Pivot Chair Transfer Assistive Devices Rolling Walker Rehab OT IP prob,goals,plan Problems Date of Evaluation: 10/06/24 OT IP Problems Bed Mobility,Transfers,Balance ,Self care,Safety Rehab Potential Rehab Potential Good Equipment Needs Assistive Devices Rolling / Wheeled Walker Plan OT intervention Plan Bed Mobility,Transfers,Balance ,Self care,Safety,Therapeutic Exercise OT Plan Frequency Daily Duration LOS Discharge Goals Bed Mobility Ability Assistance x1 Sit to Stand Chair Transfer Ability Contact Guard/Hand Hold Chair Transfer Ability Contact Guard/Hand Hold Chair Transfer Technique Sit to/from Ambulatory Chair Transfer Assistive Devices Rolling Walker Discharge Plan OT Discharge Plan Recommend patient to return home with either HH services or OP services at this time. Patient to continue skilled OT IP services while here at [facility] . Eval Complexity Eval Charge Codes 08432 - Low Complexity PHYSICIAN CERTIFICATION: I certify the specified therapy services for Francesco Adorno are required, authorized, and reviewed every 30 days.
--- NOTE | 2024-10-06 16:23 | PC.NURSE ---
Pt alert and oriented. VSS. On room air. Morphine, norco and robaxin for pain. Right hip dressing dry and intact. Spence output adequate. Up with 2 and FWW. IV fluids infusing per orders. Continue PT/OT. Pending possible placement
--- NOTE | 2024-10-06 16:28 | PC.NURSE ---
Dr. Murphy at bedside
[2024-10-06] MEDS: ONDANSETRON 4MG/2ML VIAL 4 MG IV (17:17)
[2024-10-06] MEDS: ATORVASTATIN 40MG TABLET 40 MG PO (20:23)
[2024-10-06] MEDS: CEFTRIAXONE SODIUM 1 GM in 0.9 % SODIUM CHLORIDE 50 ML IV (20:23)
[2024-10-06] MEDS: GABAPENTIN 300MG CAPSULE 600 MG PO (20:56)
[2024-10-06] MEDS: PANTOPRAZOLE 40MG TABLET 40 MG PO (20:57)
--- NOTE | 2024-10-06 22:23 | EXP.PN ---
Subjective *Date: 10/06/24 *Time: 22:23 Interval history: Patient was agitated overnight after sedation, feeling much better this morning. No acute concerns. Pain regimen available as needed. Exam Data for Last 24 hours Vital signs and Labs for Last 24 Hours: Temp Pulse Resp BP Pulse Ox O2 Del Method O2 Flow Rate 98.4 F 90 16 179/90 H 95 Room Air 1 10/06/24 19:51 10/06/24 20:00 10/06/24 19:51 10/06/24 19:51 10/06/24 19:51 10/06/24 21:00 10/06/24 08:47 Laboratory Results - last 24 hr 10/06/24 06:01: WBC 9.0 D, RBC 3.56 L, Hgb 11.2 L, Hct 32.9 L, MCV 92.4, MCH 31.5 H, MCHC 34.0, RDW 11.9, Plt Count 178, MPV 11.2 H, Neut % (Auto) 93.1 H, Lymph % (Auto) 2.9 L, [place] % (Auto) 3.6, Eos % (Auto) 0.0 L, Baso % (Auto) 0.1, Neut # (Auto) 8.3 H, Lymph # (Auto) 0.3 L, Baxter # (Auto) 0.3, Eos # (Auto) 0.0, Baso # (Auto) 0.0, Total Counted 100, Neutrophils % (Manual) 92 H, Lymphocytes % (Manual) 4 L, Monocytes % (Manual) 4, Platelet Estimate Normal, RBC Morphology Normal, Sodium 138, Potassium 4.3, Chloride 105, Carbon Dioxide 25, Anion Gap 12.3, BUN 20, Creatinine 0.70, Estimated Creat Clear 46, Estimated GFR 107, Est GFR ( Amer) 130, Glucose 129 H, Hemoglobin A1c 5.2, Calcium 8.7, Ferritin 98.6, Total Bilirubin 0.8, AST 26, ALT 20, Alkaline Phosphatase 82, Total Protein 6.1 L, Albumin 3.4 L, Globulin 2.7, Albumin/Globulin Ratio 1.3, Triglycerides 47, Cholesterol 126 L, LDL Cholesterol Direct 69.24 L, VLDL Cholesterol 9, HDL Cholesterol 39 L, Cholesterol/HDL Ratio 3.2, Vitamin B12 890, Folate 13.50, TSH 0.46 L, Free T4 1.41 I & O for Last 24 hours: Intake & Output 10/03/24 10/04/24 10/05/24 10/06/24 23:59 23:59 23:59 23:59 Intake Total 850 / 1120 2910 / 2910 Output Total 295 / 295 1550 / 1550 Balance 555 / 825 1360 / 1360 Weight 58.332 kg 58.151 kg 60.419 kg Constitutional Constitutional: no acute distress *Routine HEENT Exam Head: Present normocephalic Eye: Present EOMI and PERRL ENT: Present mucous membranes moist *Routine Neck Exam Neck: Present supple; Absent lymphadenopathy *Routine Respiratory Exam Respiratory: Present CTA bilaterally *Routine Cardiovascular Exam Cardiovascular: Present RRR *Routine Abdominal Exam Abdominal: Present soft and normoactive bowel sounds; Absent tenderness *Routine Extremities Exam Extremities: Absent cyanosis or clubbing Comments: Swelling, tenderness over right hip. *Routine Skin Exam Skin: Present warm; Absent rash *Routine Neurological Exam Neurological: Present alert and oriented X3 Assessment and Plan *Assessment and plan (1) S/P TAVR (transcatheter aortic valve replacement): Status: Acute Category: Surgical Code(s): Z95.2 - Presence of prosthetic heart valve (2) History of left bundle branch block: Status: Acute Category: Medical Code(s): Z86.79 - Personal history of other diseases of the circulatory system (3) History of aortic stenosis: Status: Acute Category: Medical Code(s): Z86.79 - Personal history of other diseases of the circulatory system (4) UTI (urinary tract infection): Status: Acute Qualifiers: Urinary tract infection type: site unspecified Hematuria presence: without hematuria Qualified Code(s): N39.0 - Urinary tract infection, site not specified Category: Medical Code(s): N39.0 - Urinary tract infection, site not specified (5) Fall: Status: Acute Qualifiers: Encounter type: initial encounter Qualified Code(s): W19.XXXA - Unspecified fall, initial encounter Category: Medical Code(s): W19.XXXA - Unspecified fall, initial encounter (6) Intertrochanteric fracture of femur: Status: Acute Qualifiers: Encounter type: initial encounter Fracture alignment: nondisplaced Fracture type: closed Laterality: right Qualified Code(s): S72.144A - Nondisplaced intertrochanteric fracture of right femur, initial encounter for closed fracture Category: Medical Code(s): S72.143A - Displaced intertrochanteric fracture of unspecified femur, initial encounter for closed fracture Plan Francesco Adorno is a 84-year-old male who fell on his right hip trying to get out of his car with milk and was admitted for right comminuted displaced intertrochanteric fracture. #Recurrent falls #Right comminuted displaced intertrochanteric fracture ? Orthopedic surgery consulted, s/p cephalomedullary nailing of right proximal femur 10/05/2024. ? Orthopedic surgery recommends WBAT to RLE as needed with assistance, aspirin 81 mg twice daily for DVT prophylaxis. ? PT/OT consulted, recommended SNF. Case management assisting with placement. ? Tylenol, [place], morphine for pain control. #UTI ? UA abnormal, urine culture pending. ? IV ceftriaxone day 2. 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 Patient reports iatrogenic along the heart during TAVR procedure that could not be repaired with open heart surgery. 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 ? Aspirin, statin. Full code DVT prophylaxis: Aspirin 81 mg twice daily.
[2024-10-07] VITALS: BP 149/74; PULSE 80; PULSE 87; RESP 16; TEMP 36.8; O2SAT 91
[2024-10-07] MEDS: HYDROCODONE 10MG/APAP 325MG TAB 1 TAB PO ×3 (00:30→11:50)
[2024-10-07] MEDS: MORPHINE 2MG/ML SYRINGE 2 MG IV ×2 (02:10→07:37)
--- NOTE | 2024-10-07 03:15 | PC.NURSE ---
patient O2 sat 88%, placed on 2L NC at this time
--- NOTE | 2024-10-07 03:16 | PC.NURSE ---
patient alert and orient x3, patient has been restless but has slept periodically, complained of pain throughout this shift, medicated per mar for pain, patient educated on use of incentive spirometer and encouraged use, dressing to right hip is C/D/I, call button is in reach
[2024-10-07 04:00] VITALS: BP 166/84; PULSE 83; PULSE 90; RESP 18; TEMP 36.8; O2SAT 98; BMI 20.9
[2024-10-07] MEDS: 0.9 % SODIUM CHLORIDE 1000ML 1,000 ML 75 ML IV (04:45)
[2024-10-07 06:27] LABS: Basophils % 0.3 % (0.1-2.0); Eosinophils # 0.2 K/mm3 (0.0-0.4); Eosinophils % 1.8 % (0.1-12.0); Hematocrit 30.3 % (42.0-52.0); Hemoglobin 10.4 g/dL (14.1-18.0); Lymphocytes # 0.8 K/mm3 (0.7-4.5); Lymphocytes % 8.6 % (10-50); Mean Corpuscular HGB Conc 34.3 g/dL (31.8-35.4); Mean Corpuscular Hemoglobin 31.1 pg (27.0-31.2); Mean Corpuscular Volume 90.7 fl (80-94); Mean Platelet Volume 11.1 fl (7.4-10.4); Monocytes # 0.9 K/mm3 (0.1-1.0); Monocytes % 9.8 % (1.7-9.3); Neutrophils # 7.3 K/mm3 (1.8-7.8); Neutrophils % 79.2 % (37.0-80.0); Platelet Count 207 K/mm3 (142-424); Red Blood Count 3.34 M/mm3 (4.60-6.20); Red Cell Distribution Width 11.9 % (11.5-17.5); White Blood Count 9.2 K/mm3 (4.8-10.8)
[2024-10-07 06:54] LABS: Anion Gap 8.8 mEq/L (5-15); Blood Urea Nitrogen 17 mg/dl (9-20); Calcium 8.8 mg/dl (8.4-10.2); Carbon Dioxide 29 mmol/L (22.0-30.0); Chloride 103 mmol/L (98-107); Creatinine Clearance Estimated 48 mL/min (50-200); Estimated Glomerular Filt Rate 107 ml/min (>60); GFR (African American) 130 ML/MIN (>60); Glucose 99 mg/dl (74-100); Potassium 3.8 mmoL/L (3.5-5.1); Sodium 137 mmol/L (136-145)
[2024-10-07 08:00] VITALS: BP 150/79; PULSE 80; PULSE 82; RESP 16; TEMP 36.6; O2SAT 97
[2024-10-07] MEDS: METHOCARBAMOL 500MG TABLET 500 MG PO (08:42)
[2024-10-07] MEDS: LISINOPRIL 10MG TABLET 10 MG PO (08:42)
[2024-10-07] MEDS: AMLODIPINE 2.5MG TABLET 2.5 MG PO (08:42)
[2024-10-07] MEDS: DULOXETINE 30MG CAPSULE.DR 60 MG PO (08:42)
[2024-10-07] MEDS: GABAPENTIN 300MG CAPSULE 900 MG PO (08:42)
[2024-10-07] MEDS: ASPIRIN EC 81MG TABLET 81 MG PO (08:42)
--- NOTE | 2024-10-07 10:40 | EXP.ORTH.PN ---
Subjective *Date: 10/07/24 *Time: 10:41 Interval history: Patient states pain is well-controlled with pain meds, has been working with PT and ambulating well. Taz LYLE, dizziness, CP, SOB, N/V, calf pain, paresthesias. Ortho Exam (Inpt) Vital signs and Labs for Last 24 Hours: Temp Pulse Resp BP Pulse Ox O2 Del Method O2 Flow Rate 97.9 F 82 16 150/79 H 97 Room Air 2 10/07/24 08:00 10/07/24 08:00 10/07/24 08:00 10/07/24 08:00 10/07/24 08:00 10/07/24 09:00 10/07/24 08:00 Laboratory Results - last 24 hr 10/06/24 06:01: Hemoglobin A1c 5.2 10/07/24 05:20: WBC 9.2, RBC 3.34 L, Hgb 10.4 L, Hct 30.3 L, MCV 90.7, MCH 31.1, MCHC 34.3, RDW 11.9, Plt Count 207, MPV 11.1 H, Neut % (Auto) 79.2, Lymph % (Auto) 8.6 L, [place] % (Auto) 9.8 H, Eos % (Auto) 1.8, Baso % (Auto) 0.3, Neut # (Auto) 7.3, Lymph # (Auto) 0.8, [place] # (Auto) 0.9, Eos # (Auto) 0.2, Baso # (Auto) 0.0, Sodium 137, Potassium 3.8, Chloride 103, Carbon Dioxide 29, Anion Gap 8.8, BUN 17, Creatinine 0.70, Estimated Creat Clear 48, Estimated GFR 107, Est GFR ( Amer) 130, Glucose 99 D, Calcium 8.8 I & O for Labs for Last 24 Hours: Intake & Output 10/04/24 10/05/24 10/06/24 10/07/24 23:59 23:59 23:59 23:59 Intake Total 850 / 1120 2910 / 3200 1916 / 1916 Output Total 295 / 295 1550 / 2850 1825 / 1825 Balance 555 / 825 1360 / 350 91 / 91 Weight 58.332 kg 58.151 kg 60.419 kg 62.505 kg Microbiology Reports for the Last 24 Hours: Microbiology 10/05/24 08:39 Urine,Catheterized Urine Culture - Final No growth. Additional findings:: R hip: Dressing changed with DSDs. No erythema, active drainage, signs of infection. Edges will aproximated with racquel. Thigh and calf SNT. Grossly NVID with SILT 1st DWS/PA, + motor EHL/FHL/GS/TA. +2 RP. Assessment and Plan *Assessment and plan (1) Intertrochanteric fracture of femur: Status: Acute Qualifiers: Encounter type: initial encounter Fracture alignment: nondisplaced Fracture type: closed Laterality: right Qualified Code(s): S72.144A - Nondisplaced intertrochanteric fracture of right femur, initial encounter for closed fracture Category: Medical Code(s): S72.143A - Displaced intertrochanteric fracture of unspecified femur, initial encounter for closed fracture Plan s/p R TFN POD#2 PT/OT: WBAT to RLE with devices PRN ambulation DVT ppx: ASA 81 BID x 28 days total, SCDs BLE Ice and elevation PRN swelling/pain Hgb/Hct: 10.4/30.3, stable. Pain control PRN Discharge planning to [place], likely today. Follow up POD#10-14 (10/17-) for staple removal in clinic.
--- NOTE | 2024-10-07 12:08 | EXP.DC.SUM ---
General Admission date:: 10/04/24 HPI HPI HPI: This is an 84-year-old male who has a past medical history significant for aortic valve stenosis with TAVR, hypertension, CVA, hyperlipidemia, heart murmur, colon cancer, and sarcoma presenting with R displaced IT fracture s/p mechanical fall at home while walking down the driveway. Was seen in the ER that night, where XR confirmed diagnosis and orthopedics was consulted. Today, patient states that pain is well-controlled with pain medications, localized to the lateral aspect of the R hip without radiation, described as an aching pain with stabbing pain with movement. He walks without any devices at home, but states he has mild R sided hemiparesis from h/o 32 strokes after TAVR several years ago. He denies any anticoagulaNTS in daily medications, and states that account manager told him he was in good health at his last checkup. Hospital Course Hospital Course Hospital Course: Francesco Adorno is a 84-year-old male who fell on his right hip trying to get out of his car with milk and was admitted for right comminuted displaced intertrochanteric fracture. #Recurrent falls #Right comminuted displaced intertrochanteric fracture ? Orthopedic surgery consulted, s/p cephalomedullary nailing of right proximal femur 10/05/2024. ? Orthopedic surgery recommends WBAT to RLE as needed with assistance, aspirin 81 mg twice daily for DVT prophylaxis for total of 28 days. ? PT/OT consulted, recommended SNF. [facility] graciously accepted patient for rehab. ? TSH, B12, folate levels normal. ? Discharged with Percocet 5 mg every 4 hours, methocarbamol for pain control. Adjust based on needs. ? Follow-up with your orthopedic surgery around 10/17/2024. #UTI ? Discharged with levofloxacin for 4 more days. #Suspected BPH #Urinary retention, bladder outlet obstruction ? Chronic urinary retention being evaluated by urology. Does straight caths at home. ? Spence placed, can be followed up with a voiding trial. ? Increase tamsulosin to 0.8 mg, started finasteride 5 mg daily. 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 Patient reports iatrogenic along the heart during TAVR procedure that could not be repaired with open heart surgery. 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 ? Aspirin, statin. Total time spent on discharge: 32 minutes on chart review, counseling, documentation, and direct care with patient. Exam Data for Last 24 hours Vital signs and Labs for Last 24 Hours: Temp Pulse Resp BP Pulse Ox O2 Del Method O2 Flow Rate 97.9 F 82 16 150/79 H 97 Room Air 2 10/07/24 08:00 10/07/24 08:00 10/07/24 08:00 10/07/24 08:00 10/07/24 08:00 10/07/24 11:00 10/07/24 08:00 Laboratory Results - last 24 hr 10/07/24 05:20: WBC 9.2, RBC 3.34 L, Hgb 10.4 L, Hct 30.3 L, MCV 90.7, MCH 31.1, MCHC 34.3, RDW 11.9, Plt Count 207, MPV 11.1 H, Neut % (Auto) 79.2, Lymph % (Auto) 8.6 L, [place] % (Auto) 9.8 H, Eos % (Auto) 1.8, Baso % (Auto) 0.3, Neut # (Auto) 7.3, Lymph # (Auto) 0.8, [place] # (Auto) 0.9, Eos # (Auto) 0.2, Baso # (Auto) 0.0, Sodium 137, Potassium 3.8, Chloride 103, Carbon Dioxide 29, Anion Gap 8.8, BUN 17, Creatinine 0.70, Estimated Creat Clear 48, Estimated GFR 107, Est GFR ( Amer) 130, Glucose 99 D, Calcium 8.8 I & O for Last 24 hours: Intake & Output 10/04/24 10/05/24 10/06/24 10/07/24 23:59 23:59 23:59 23:59 Intake Total 850 / 1120 2910 / 3200 1916 / 1916 Output Total 295 / 295 1550 / 2850 1825 / 1825 Balance 555 / 825 1360 / 350 91 / 91 Weight 58.332 kg 58.151 kg 60.419 kg 62.505 kg Microbiology Reports for the Last 24 Hours: Microbiology 10/05/24 08:39 Urine,Catheterized Urine Culture - Final No growth. Constitutional Constitutional: no acute distress *Routine HEENT Exam Head: Present normocephalic Eye: Present EOMI and PERRL ENT: Present mucous membranes moist *Routine Neck Exam Neck: Present supple; Absent lymphadenopathy *Routine Respiratory Exam Respiratory: Present CTA bilaterally *Routine Cardiovascular Exam Cardiovascular: Present RRR *Routine Abdominal Exam Abdominal: Present soft and normoactive bowel sounds; Absent tenderness *Routine Extremities Exam Extremities: Absent cyanosis or clubbing Comments: Swelling, tenderness over right hip. *Routine Skin Exam Skin: Present warm; Absent rash *Routine Neurological Exam Neurological: Present alert and oriented X3 Results Data Completed and Pending Labs on day of discharge: Labs from last 24 hours 10/07/24 05:20 WBC 9.2 RBC 3.34 L Hgb 10.4 L Hct 30.3 L MCV 90.7 MCH 31.1 MCHC 34.3 RDW 11.9 Plt Count 207 MPV 11.1 H Neut % (Auto) 79.2 Lymph % (Auto) 8.6 L [place] % (Auto) 9.8 H Eos % (Auto) 1.8 Baso % (Auto) 0.3 Neut # (Auto) 7.3 Lymph # (Auto) 0.8 [place] # (Auto) 0.9 Eos # (Auto) 0.2 Baso # (Auto) 0.0 Sodium 137 Potassium 3.8 Chloride 103 Carbon Dioxide 29 Anion Gap 8.8 BUN 17 Creatinine 0.70 Estimated Creat Clear 48 Estimated GFR 107 Est GFR ( Amer) 130 Glucose 99 D Calcium 8.8 DS: Diagnosis Discharge Diagnosis (1) Intertrochanteric fracture of femur: Status: Acute Code(s): S72.143A - Displaced intertrochanteric fracture of unspecified femur, initial encounter for closed fracture Qualifiers: Encounter type: initial encounter Fracture alignment: nondisplaced Fracture type: closed Laterality: right Qualified Code(s): S72.144A - Nondisplaced intertrochanteric fracture of right femur, initial encounter for closed fracture Meds Home Medications and Allergies Home Medications ?Medication ?Instructions ?Recorded ?Confirmed ?Type lisinopril 10 mg tablet 10 mg PO DAILY 02/20/20 10/04/24 History omeprazole magnesium 20 mg 20 mg PO DAILY 03/03/24 10/04/24 History tablet,delayed release duloxetine 60 mg capsule,delayed 60 mg PO BID #60 caps 08/26/24 10/04/24 Rx release gabapentin 300 mg capsule 900 mg PO DAILY 10/04/24 10/05/24 History amlodipine 2.5 mg tablet 2.5 mg PO DAILY 10/05/24 10/05/24 History gabapentin 300 mg capsule 1,200 mg PO HS 10/05/24 10/05/24 History aspirin 81 mg tablet,delayed 81 mg PO BID 26 days #52 tabs 10/07/24 Rx release atorvastatin 40 mg tablet 20 mg (1/2 x 40 mg) PO HS 30 days 10/07/24 Rx #15 tabs finasteride 5 mg tablet 5 mg PO DAILY 30 days #30 tabs 10/07/24 Rx levofloxacin 500 mg tablet 500 mg PO DAILY 3 days #3 tabs 10/07/24 Rx methocarbamol 500 mg tablet 500 mg PO BIDP PRN back, hip pain 10/07/24 Rx #30 tabs oxycodone-acetaminophen 5 mg-325 1 tab PO Q4H PRN pain #18 tabs 10/07/24 Rx mg tablet (Percocet) polyethylene glycol 3350 17 17 g PO DAILY #510 grams 10/07/24 Rx gram/dose oral powder (Miralax) tamsulosin 0.4 mg capsule (Flomax) 0.8 mg (2 x 0.4 mg) PO DAILY 90 10/07/24 10/04/24 Rx days #90 caps New Prescriptions to Start Prescriptions: aspirin Gerri,Cody atorvastatin Gerri,Cody finasteride Gerri,Cody levofloxacin Gerri,Cody methocarbamol Gerri,Cody oxycodone-acetaminophen [Percocet] Gerri,Cody polyethylene glycol 3350 [Miralax] Cody Talley Allergies Allergy/AdvReac Type Severity Reaction Status Date / Time No Known Allergies Allergy Verified 10/04/24 18:24 Discharge Plan Disposition Patient Disposition: er SNF Condition: Fair Discharge Order Discharge Orders: Discharge Order (Routine); Ordered 10/07/24 Ordered By: Cody Talley Follow up Plan Follow up with: Mike Murphy DO [Staff Physician] - 10/17/24 Prescriptions/Medication Reconciliation: New aspirin 81 mg Tablet,Delayed Release (Dr/Ec) 81 mg PO BID 26 Days Qty: 52 0RF atorvastatin 40 mg Tablet 20 mg PO HS 30 Days Qty: 15 0RF methocarbamol 500 mg Tablet 500 mg PO BIDP PRN (Reason: back, hip pain) Qty: 30 0RF finasteride 5 mg tablet 5 mg PO DAILY 30 Days Qty: 30 0RF oxycodone-acetaminophen [Percocet] 5-325 mg tablet 1 tab PO Q4H PRN (Reason: pain) Qty: 18 0RF polyethylene glycol 3350 [Miralax] 17 gram/dose powder 17 g PO DAILY Qty: 510 0RF levofloxacin 500 mg tablet 500 mg PO DAILY 3 Days Qty: 3 0RF Continued lisinopril 10 mg tablet 10 mg PO DAILY duloxetine 60 mg capsule,delayed release(DR/EC) 60 mg PO BID Qty: 60 5RF omeprazole magnesium 20 mg tablet,delayed release (DR/EC) 20 mg PO DAILY gabapentin 300 mg capsule 900 mg PO DAILY amlodipine 2.5 mg tablet 2.5 mg PO DAILY gabapentin 300 mg capsule 1,200 mg PO HS Changed tamsulosin [Flomax] 0.4 mg capsule 0.8 mg PO DAILY 90 Days Qty: 90 1RF Problem Reconciliation Problems Reviewed?: Yes Patient Discharge Instructions Patient Instructions: DI for Hip Fracture, DI for Hip Replacement, DI for Urinary Tract Infection (UTI), DI for Surgical Site Infection, Catheter-Associated Urinary Tract Infection Print Language: Malaysian Providers Primary Care Provider: Beltran Batista Admit Provider: Cody Talley Attending Provider: Cody Talley
== END 2024-10-07 14:45 | DRG 481 ==
LOC: ER 20:07 → 2ND 20:32
PROVIDERS: Nurse Practitioner Family; Orthopaedic Surgery; Physician Assistant Surgical; Admitting Provider Student in an Organized Health Care Education/Training Program; Emergency Provider Emergency Medicine; PCP Family Medicine; Visit Provider Student in an Organized Health Care Education/Training Program
PROC: 0QS636Z Reposition Right Upper Femur with Intramedullary Internal Fixation Device, Percutaneous Approach (ICD-10-PCS; CPT 27245; principal; 2024-10-05 15:15)
DX: S72.141A Displaced intertrochanteric fracture of right femur, initial encounter for closed fracture (principal); C49.9 Malignant neoplasm of connective and soft tissue, unspecified; I69.351 Hemiplegia and hemiparesis following cerebral infarction affecting right dominant side; Z95.2 Presence of prosthetic heart valve; Z79.899 Other long term (current) drug therapy; R29.6 Repeated falls; W01.0XXA Fall on same level from slipping, tripping and stumbling without subsequent striking against object, initial encounter; Y92.014 Private driveway to single-family (private) house as the place of occurrence of the external cause; I10 Essential (primary) hypertension; E78.5 Hyperlipidemia, unspecified; R01.1 Cardiac murmur, unspecified; Z85.038 Personal history of other malignant neoplasm of large intestine; G40.909 Epilepsy, unspecified, not intractable, without status epilepticus; R25.1 Tremor, unspecified; I44.7 Left bundle-branch block, unspecified
CPT/HCPCS: 36415; 73502; 73552; 76000; 80048; 80053; 80061; 81001; 82607; 82728; 82746; 82803; 83036; 84439; 84443; 85007; 85025; 85610; 86850; 87086; 93306; 96374; 97116; 97163; 97165; 97530; 99285; C1713; C1769; C1776; J0690; J0696; J1100; J1171; J1200; J1650; J1885; J2270; J2405; J3010; J7030

== ENCOUNTER 2024-10-15 18:06 | Observation (INO) | payer MEDICARE, SELFPAY ==
[2024-10-15] VITALS (11 sets, daily range): BP systolic 137–165; BP diastolic 63–97; PULSE 66–94; RESP 13–20; TEMP 36.6–37.6; O2SAT 91–96; BMI 20.3; BMI 20.6
--- NOTE | 2024-10-15 18:22 | CT_ITS ---
PROCEDURE INFORMATION: Exam: CTA Abdomen and Pelvis With Contrast Exam date and time: 10/15/2024 7:12 PM Age: 84 years old Clinical indication: Abdominal pain; Generalized; Additional info: Abd pain/distension, hematemesis TECHNIQUE: Imaging protocol: Computed tomographic angiography of the abdomen and pelvis with contrast. Exam focused on the arteries. 3D rendering (Not supervised by radiologist): MIP and/or 3D reconstructed images were created by the technologist. Radiation optimization: All CT scans at this facility use at least one of these dose optimization techniques: automated exposure control; mA and/or kV adjustment per patient size (includes targeted exams where dose is matched to clinical indication); or iterative reconstruction. Contrast material: ISOVUE; Contrast volume: 80 ml; Contrast route: INTRAVENOUS (IV); COMPARISON: CT ABDOMEN PELVIS W CON 08/30/2024 4:51 PM FINDINGS: Lungs: Compressive atelectasis and some patchy consolidations in the right lung base. Pleural spaces: Trace bilateral pleural effusions, slightly larger on the right, with chronic pleural calcifications. Heart: Prior aortic valve replacement. Aorta: 2.5 cm fusiform ectasia of the infrarenal abdominal aorta. No aneurysm. Moderate calcified and noncalcified plaque throughout the aorta with ulcerated plaque in the descending thoracic aorta, however no evidence for penetrating atherosclerotic ulcer. Celiac trunk and mesenteric arteries: Inferior mesenteric artery is not identified. Renal arteries: At least 50% luminal stenosis at the takeoff of the bilateral renal arteries, due to calcified atherosclerotic plaque. They are otherwise completely patent. Right iliac arteries: No occlusion or significant stenosis. Left iliac arteries: 6.6 mm penetrating atherosclerotic ulcer in the proximal left common iliac artery. Liver: No mass. Gallbladder and biliary ducts: Cholecystectomy. Pancreas: Unremarkable. No mass. No ductal dilation. Spleen: Unremarkable. No splenomegaly. Adrenal glands: Unremarkable. No mass. Kidneys and ureters: Single subcentimeter left kidney hypodense lesion which is too small to characterize. Consider follow-up ultrasound. Stomach and bowel: Decreased luminal diameter at the level of the rectosigmoid anastomosis with moderate wall thickening to a short-segment of sigmoid which is just proximal to the anastomosis itself. Upstream moderate colonic dilation and constipation, with colonic loops measuring up to 6 cm. There is fecal material distal to the anastomosis at the distal rectum. Hyperdense material layers within the stomach, and does not change throughout the contrast phases, presumably ingested food material or sediment. Hemorrhage is unlikely. Transient small bowel intussusception in the right upper quadrant. Appendix: No evidence of appendicitis. Intraperitoneal space: Unremarkable. No free air. No significant fluid collection. Lymph nodes: Unremarkable. No enlarged lymph nodes. Urinary bladder: Stable 4 mm calcification adherent to the left urinary bladder wall. Stable mild urinary bladder wall thickening and trabeculation on the left side. Reproductive: The prostate demonstrates nonspecific parenchymal calcifications. Bones/joints: Recent right femoral neck fixation without definitive complications. Sternotomy. There are healed left rib fractures. There are healed right rib fractures. Bone demineralization. Moderate multilevel degenerative changes of the spine. No acute skeletal abnormality or aggressive osseous lesion. Soft tissues: Surgical clips in the right thigh. Soft tissue swelling in the right thigh. IMPRESSION: 1. 6.6 mm penetrating atherosclerotic ulcer in the proximal left common iliac artery. No evidence of perforation or rupture. 2. Concern for possible [id number] stenosis at the rectosigmoid anastomosis with concomitant segmental colitis to the sigmoid which is just proximal to the anastomotic sutures. This in turn is causing a upstream colonic dilation (either an ileus or partial obstruction) without evidence of perforation. Considering that the anastomosis is similar to prior studies, and ileus would be more likely. 3. No definitive evidence for acute GI bleed. 4. Transient small bowel intussusception in the right upper quadrant. This is a self-limiting process in adults. Consider follow-up if warranted. 5. Trace bilateral pleural effusions, slightly larger on the right, with chronic pleural calcifications. 6. High likelihood of compressive atelectasis in the right lung base. Superimposed infectious pneumonic process should be entertained in the appropriate clinical setting. COMMENTS: THIS REPORT CONTAINS FINDINGS THAT MAY BE CRITICAL TO PATIENT CARE. The findings were verbally communicated via telephone conference with Naomie Daniel at 8:25 PM EDT on 10/15/2024. The findings were acknowledged and understood.
--- NOTE | 2024-10-15 18:22 | ECG_ITS ---
APPROVED REPORT Exam: Resting ECG HR:95 bpm ECG Measurements Heart Rate 95 AXES ME 165 P 74 QRSd 174 QRS -69 QT 421 T 101 QTc 474 Conclusion SINUS RHYTHM WITH FREQUENT SUPRAVENTRICULAR PREMATURE COMPLEXES LEFT AXIS DEVIATION [QRS AXIS < -30] LEFT BUNDLE BRANCH BLOCK [120+ ms QRS DURATION, 80+ ms Q/S IN V1/V2, 85+ ms R IN I/aVL/V5/V6] No sTEMI Electronically signed by : TERRELL ACEVEDO, 10/16/2024 00:53:45
[2024-10-15 18:28] LABS: Basophils % 0.2 % (0.1-2.0); Eosinophils % 0.2 % (0.1-12.0); Hematocrit 31.8 % (42.0-52.0); Hemoglobin 10.9 g/dL (14.1-18.0); Lymphocytes # 0.5 K/mm3 (0.7-4.5); Lymphocytes % 2.9 % (10-50); Mean Corpuscular HGB Conc 34.3 g/dL (31.8-35.4); Mean Corpuscular Hemoglobin 31.3 pg (27.0-31.2); Mean Corpuscular Volume 91.4 fl (80-94); Monocytes # 0.7 K/mm3 (0.1-1.0); Neutrophils # 17.1 K/mm3 (1.8-7.8); Neutrophils % 92.3 % (37.0-80.0); Platelet Count 395 K/mm3 (142-424); Red Blood Count 3.48 M/mm3 (4.60-6.20); Red Cell Distribution Width 12.5 % (11.5-17.5); White Blood Count 18.5 K/mm3 (4.8-10.8)
[2024-10-15 18:30] LABS: MANUAL DIFFERENTIAL MANUAL DIFFERENTIAL (MANUAL DIFF)
--- NOTE | 2024-10-15 18:33 | HMH.EDGENADL ---
Discharge Plan Disposition Patient Disposition: Admitted Condition: Good Clinical Impressions Clinical Impression: Aspiration into airway Hematemesis Qualifiers: Nausea presence: with nausea Qualified Code(s): K92.0 - Hematemesis Bowel obstruction Qualifiers: Intestinal obstruction type: unspecified ileus Qualified Code(s): K56.7 - Ileus, unspecified Discharge ED Provider: Naomie Daniel General Adult HPI General Chief complaint: GI Bleed Stated complaint: ABDOMINAL PAIN Time Seen by Provider: 10/15/24 18:22 Mode of Arrival: EMS Source of Information: Patient and EMS Description of Symptoms (Recalled from ER Triage Doc. by RN): pt had one episode of black emesis. had hip surgery last week. currently on asa 81. History of Present Illness HPI narrative: This patient is an 84-year-old male with a history of prior colon cancer status post resection, prior CVA, aortic stenosis, hypertension, BPH, recent admission for intertrochanteric hip fracture status postoperative repair and discharged to [facility] facility for rehab presenting to the emergency department for evaluation with concern for generalized abdominal pain and distention has been going on for 2 days, diarrhea, and he started having black emesis today. He has not eaten because of the pain. He is not sure what his stool looked like because his bowel movement was in a depends. No fevers or infectious symptoms noted. Nursing facility called report and noted 1 episode of hematemesis, corroborated the patient's story. EMS also corroborates the story and noted that the patient was stable en route but did have abdominal distention and tenderness. Patient denies any other concerns or complaints at this time. Of note, he is on aspirin as well as a PPI Related Data Home Medications ?Medication ?Instructions ?Recorded ?Confirmed lisinopril 10 mg tablet 10 mg PO DAILY 02/20/20 10/15/24 omeprazole magnesium 20 mg 20 mg PO DAILY 03/03/24 10/15/24 tablet,delayed release gabapentin 300 mg capsule 900 mg PO DAILY 10/04/24 10/15/24 amlodipine 2.5 mg tablet 2.5 mg PO DAILY 10/05/24 10/15/24 gabapentin 300 mg capsule 1,200 mg PO HS 10/05/24 10/15/24 Previous Rx's ?Medication ?Instructions ?Recorded duloxetine 60 mg capsule,delayed 60 mg PO BID #60 caps 01/31/25 release aspirin 81 mg tablet,delayed 81 mg PO BID 26 days #52 tabs 10/07/24 release atorvastatin 40 mg tablet 20 mg (1/2 x 40 mg) PO HS 30 days 10/07/24 #15 tabs finasteride 5 mg tablet 5 mg PO DAILY 30 days #30 tabs 10/07/24 methocarbamol 500 mg tablet 500 mg PO BIDP PRN back, hip pain 10/07/24 #30 tabs oxycodone-acetaminophen 5 mg-325 1 tab PO Q4H PRN pain #18 tabs 10/07/24 mg tablet (Percocet) polyethylene glycol 3350 17 17 g PO DAILY #510 grams 10/07/24 gram/dose oral powder (Miralax) tamsulosin 0.4 mg capsule (Flomax) 0.8 mg (2 x 0.4 mg) PO DAILY 90 10/07/24 days #90 caps Allergies Allergy/AdvReac Type Severity Reaction Status Date / Time No Known Allergies Allergy Verified 10/04/24 18:24 PFSH FORMERLY [facility], 1928–1983 Disclaimer: The information contained in this section may have been updated after the patient was seen, as this information can be updated by other users. Medical History Hematuria Sarcoma Dehydration Peripheral neuropathy Rectal stricture Chest pain Left hand paresthesia Left hand pain Colon stricture Chronic pain of right knee Stricture of sigmoid colon History of gastroesophageal reflux (GERD) History of cataract Sarcoma Tremor Stroke Colon cancer Seizure disorder CVA (cerebrovascular accident) HTN (hypertension) Surgical History H/O hernia repair History of cataract surgery History of open heart surgery History of aortic valve replacement History of heart surgery History of cholecystectomy History of colon resection History of colonoscopy Family History Other Cancer Heart attack Social History (Updated 10/15/24 @ 23:08 by Caroline Hastings RN) Smoking Status: Never smoker second hand exposure: No alcohol intake: former substance use type: denies use current occupational status: retired and other Travel in the last 8 weeks: Inside the [place] adopted: No caregiver/support person: Yes foster care: No household members: spouse housing: house lives independently: No marital status: 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 occupational exposures/hazards: No caffeine: Yes Have you lived/traveled outside [place] in past 30 days?: No Contact w/someone who lives/traveled outside [place] past 30 days?: No Exposure to someone with infectious disease in past 14 days?: No Do you have a fever (greater than 100.4 F or 38 C)?: No Have you tested positive for COVID-19: No Exposed to someone with COVID-19 in past 14 days?: No Do you have a sore throat?: No Do you have a cough?: No Do you have any weakness?: No Are you experiencing any nausea/vomitting?: Yes Do you have any diarrhea?: No Are you experiencing any unusual bleeding?: No Do you have any muscle aches/pain?: No Do you have any abdominal pain?: Yes Are you experiencing loss of taste or smell?: No Other Medical History Have you received the Flu Vaccine for this season: No Have you received the Pneumonia Vaccine: No ROS Obtained: Yes All systems reviewed & no additional complaints except as documented Physical Exam General General appearance: alert Comment: Lying in bed, pale, ill-appearing with abdominal distention and guarding Head Head exam: atraumatic and normocephalic Eye Eye exam: Present normal appearance, PERRL and EOMI ENT ENT exam: Present normal exam, normal oropharynx, mucous membranes moist and normal external ear exam Neck Neck exam: Present normal inspection, full ROM and trachea midline; Absent tenderness Chest Chest inspection: Present normal inspection and symmetric chest wall rise; Absent tenderness Respiratory Respiratory exam: Present normal lung sounds bilaterally; Absent respiratory distress, wheezes, stridor or accessory muscle use Cardiovascular Cardiovascular exam: Present regular rate and normal rhythm Abdominal Exam Abdominal exam: Present distention, tenderness and guarding; Absent rebound or rigidity Extremities Exam Extremities exam: Present normal inspection, full ROM and normal capillary refill; Absent tenderness or edema Back Exam Back exam: Present normal inspection and full ROM; Absent tenderness Neurological Exam Neurological exam: Present alert, oriented X3, CN II-XII intact and other (Generally weak without focal deficit) Psychiatric Psychiatric exam: Present normal affect and normal mood Skin Skin exam: Present warm and dry Medical Decision Making Medical Records Medical records reviewed: Yes I reviewed the patient's medical records. Screening: Per USPSTF and CDC recommendations, given the prevalence of disease in our region, it is our hospital?s policy to screen for HIV and viral Hepatitis for all patients aged 18 and over and those with ongoing risk factors. [place] Inquiry Pt receiving controlled substance: No Vital Signs: 10/15/24 18:26 10/15/24 18:30 10/15/24 19:01 Temperature 97.9 F Temperature Source Oral Pulse Rate 91 H 66 Pulse Rate [Right] 89 Respiratory Rate 18 Blood Pressure 142/75 H 147/73 H Blood Pressure [Right Arm] 165/97 H Blood Pressure Mean Blood Pressure Mean [Right Arm] 119 Blood Pressure Source [Right Arm] 02 Sat by Pulse Oximetry 96 94 L 93 L Oxygen Delivery Method Room Air Nasal Cannula Room Air 10/15/24 20:00 10/15/24 20:15 10/15/24 20:30 Temperature Temperature Source Pulse Rate 89 94 H Pulse Rate [Right] Respiratory Rate Blood Pressure 137/73 147/80 H Blood Pressure [Right Arm] Blood Pressure Mean 95 Blood Pressure Mean [Right Arm] Blood Pressure Source [Right Arm] 02 Sat by Pulse Oximetry 95 94 L Oxygen Delivery Method Room Air Room Air Room Air 10/15/24 21:00 10/15/24 21:17 10/15/24 21:39 Temperature 98.1 F 99.7 F H Temperature Source Oral Pulse Rate 89 Pulse Rate [Right] 90 Respiratory Rate 20 13 Blood Pressure 137/72 137/72 Blood Pressure [Right Arm] 143/63 H Blood Pressure Mean 93 Blood Pressure Mean [Right Arm] 89 Blood Pressure Source [Right Arm] Automatic Cuff 02 Sat by Pulse Oximetry 93 L Oxygen Delivery Method Room Air Room Air Room Air Lab Data Lab results reviewed: Yes I reviewed the patient's lab results. Lab Results 10/15/24 18:15: WBC 18.5 H, RBC 3.48 L, Hgb 10.9 L, Hct 31.8 L, MCV 91.4, MCH 31.3 H, MCHC 34.3, RDW 12.5, Plt Count 395, MPV 11.0 H, Neut % (Auto) 92.3 H, Lymph % (Auto) 2.9 L, [place] % (Auto) 4.0, Eos % (Auto) 0.2, Baso % (Auto) 0.2, Neut # (Auto) 17.1 H, Lymph # (Auto) 0.5 L, [place] # (Auto) 0.7, Eos # (Auto) 0.0, Baso # (Auto) 0.0, Total Counted 100, Neutrophils % (Manual) 94 H, Lymphocytes % (Manual) 3 L, Monocytes % (Manual) 3, Platelet Estimate Normal, RBC Morphology Normal, PT 12.6 H, INR 1.14 H, APTT 29.3, Sodium 136, Potassium 3.5, Chloride 100, Carbon Dioxide 36 H, Anion Gap 3.5 L, BUN 34 H, Creatinine 0.60 L, Estimated Creat Clear 45, Estimated GFR 128, Est GFR ( Amer) 155, Glucose 147 H, Calcium 9.1, Total Bilirubin 2.2 H, AST 30, ALT 19, Alkaline Phosphatase 113, Troponin I < 0.01, Total Protein 6.6, Albumin 3.9, Globulin 2.7, Albumin/Globulin Ratio 1.4, Lipase 71 10/15/24 18:34: Lactate 1.2, Blood Type A Positive, Antibody Screen Negative 10/15/24 18:15 10/15/24 18:15 Orders (Tests/Meds): ED MEDICATIONS Generic Name Dose Route Start Last Admin Trade Name Freq PRN Reason Stop Dose Admin Albuterol/Ipratropium 3 ml 10/15/24 21:21 Ipratropium/Albuterol 3 Ml Neb IH 11/14/24 21:20 Q6HP PRN Shortness Of Breath Famotidine 20 mg 10/15/24 21:30 10/15/24 22:21 Famotidine 20mg/2ml Vial IV 11/14/24 21:29 20 mg BID BRIDGETT Administration Sodium Chloride 1,000 mls @ 100 mls/hr 10/15/24 21:30 10/15/24 22:19 Sod Chlor 0.9% 1000ml Bag IV 11/14/24 21:29 100 mls/hr .Q10H BRIDGETT Administration Piperacillin Sod/Tazobactam 50 mls @ 100 mls/hr 10/16/24 04:30 Sod 3.375 gm/ Sodium Chloride IV 10/26/24 04:29 Q8H BRIDGETT Insulin Human Lispro 0 unit 10/16/24 06:00 Humalog 100 Units/Ml 10ml Vial (Ssi) SUBCUT 11/15/24 05:59 ACHS BRIDGETT Protocol Morphine Sulfate 2 mg 10/15/24 21:21 10/15/24 22:20 Morphine 2mg/Ml Syringe IV 11/14/24 21:20 2 mg Q2HP PRN Administration Severe Pain (7-10) Ondansetron HCl 4 mg 10/15/24 21:21 Ondansetron 4mg/2ml Vial IV 11/14/24 21:20 Q6HP PRN Nausea Sodium Chloride 10 ml 10/15/24 19:30 10/15/24 19:31 Sodium Chloride 0.9% 10ml Syr (Rad Only) IV 11/14/24 19:29 10 ml NEEDED PRN Administration Maintain IV Site Sodium Chloride 10 ml 10/15/24 21:21 Sodium Chloride 0.9% 10ml Flush Syringe IV 11/14/24 21:20 NEEDED PRN Maintain IV Site Sodium Chloride 8 ml 10/15/24 21:29 Sodium Chloride 0.9% 10ml Vial IV 11/14/24 21:28 NEEDED PRN dilute famotidine Discontinued Medications Generic Name Dose Route Start Last Admin Trade Name Freq PRN Reason Stop Dose Admin Acetaminophen 1,000 mg 10/15/24 18:32 10/15/24 18:43 Acetaminophen 1,000mg/100ml Vial IV 10/15/24 18:33 1,000 mg ONCE ONE Administration Lactated Ringer's 1,000 mls @ 999 mls/hr 10/15/24 18:32 10/15/24 18:43 Lactated Ringer's 1000 Ml Bag IV 10/15/24 19:32 999 mls/hr .Q1H1M ONE Administration Pantoprazole Sodium 80 mg/ 100 mls @ 100 mls/hr 10/15/24 18:32 10/15/24 18:44 Sodium Chloride IV 10/15/24 19:31 100 mls/hr ONCE ONE Administration Piperacillin Sod/Tazobactam 50 mls @ 100 mls/hr 10/15/24 19:51 10/15/24 20:32 Sod 3.375 gm/ Sodium Chloride IV 10/15/24 20:20 100 mls/hr ONCE ONE Administration Iopamidol 80 ml 10/15/24 19:30 10/15/24 19:31 Iopamidol-370 (76%);100ml Bottle IV 10/15/24 19:31 80 ml ONCE ONE Administration Ondansetron HCl 4 mg 10/15/24 18:32 10/15/24 18:43 Ondansetron 4mg/2ml Vial IV 10/15/24 18:33 4 mg ONCE ONE Administration Sodium Chloride 40 ml 10/15/24 19:30 10/15/24 19:31 0.9 % Sodium Chloride 50 Ml Vial IV 10/15/24 19:31 40 ml ONCE ONE Administration ORDERS Category Date Time Status Type and Screen Stat BBK 10/15/24 18:[address] angio abd/pel - GI Bleed Stat Cat Scan 10/15/24 18:22 Completed Consult to General Surgery [CONS] Routine Cons 10/15/24 21:21 Ordered General Surgery Consult [Consult to General Surgery] [ Cons 10/15/24 20:23 Ordered CONS] Stat XR KUB Stat Exams 10/15/24 20:02 Completed Activated Partial Thrombo Time AMLAB Lab 10/16/24 06:00 Ordered Complete Blood Count Auto Diff AMLAB Lab 10/16/24 06:00 Ordered Complete Blood Count Auto Diff Stat Lab 10/15/24 18:15 Completed Comprehensive Metabolic Panel AMLAB Lab 10/16/24 06:00 Ordered Comprehensive Metabolic Panel Stat Lab 10/15/24 18:15 Completed Lactic Acid AMLAB Lab 10/16/24 06:00 Ordered Lactic Acid Stat Lab 10/15/24 18:34 Completed Lipase Stat Lab 10/15/24 18:15 Completed Magnesium AMLAB Lab 10/16/24 06:00 Ordered PT INR [Prothrombin Time INR] Stat Lab 10/15/24 18:15 Completed PTT [Activated Partial Thrombo Time] Stat Lab 10/15/24 18:15 Completed Trop I [Troponin I] Stat Lab 10/15/24 18:15 Completed Troponin I Q3H Lab 10/15/24 23:20 Received Troponin I Q3H Lab 10/16/24 00:45 Ordered UA [Urinalysis and Microscopic] Stat Lab 10/15/24 22:46 Completed Blood Culture Stat Micro 10/15/24 19:40 Received Urine Culture Stat Micro 10/15/24 22:46 Received Venous Blood Gas AMLAB RT 10/16/24 06:00 Ordered ECG Data Tracing #1: I reviewed this ECG and interpreted as documented below: Normal sinus rhythm with a ventricular rate of 95 bpm. Left bundle branch block. Premature complexes noted. No acute STEMI. ECG initial impression date: 10/15/24 ECG initial impression time: 18:50 Medical Decision Narrative: In summary, this patient is a 84-year-old male presenting to the Emergency Department for evaluation of generalized abdominal pain and distention, hematemesis, diarrhea. Differential diagnoses considered include but are not limited to bowel ischemia, peptic ulcer disease, bleeding ulcer, gastritis, colitis, bowel perforation. Ruling out the most morbid conditions drove assessment. It should be noted patient's history includes aortic valve replacement, left bundle branch block, hypertension, hyperlipidemia, GERD, BPH which may or may not be at goal therapy. This complicates all aspects of care by increasing patient's risk for morbidity. I reviewed patient's past medical records and noted recent admission for intertrochanteric hip fracture and discharged to retirement facility as detailed in HPI. I also note that he is currently on aspirin. I also noted prior general surgery evaluations with concern for anastomotic strictures and rectosigmoid stenosis On exam, the patient has generalized abdominal tenderness, distention, guarding. No rebound or rigidity. He is lying in bed in no acute distress with reassuring vital signs on cardiac telemetry and is mildly hypertensive with systolics in the 140s. He has no complaints aside from the abdominal pain, distention, inability to eat, and vomiting. Workup included CBC, CMP, lipase, lactic acid, coags, troponin, urinalysis, urine culture, blood cultures, EKG, and CTA of the abdomen and pelvis. He was given a bolus of IV fluids as well as IV acetaminophen, Zofran, and PPI. I loaded him with PPI but did not administer octreotide or Rocephin, as he does not have any known history of cirrhosis or esophageal varices. I independently interpreted CT scan prior to the radiologist read and noted large bowel obstruction without obvious perforation. He has a very distended stomach full of fluid, so I elected to place an NG tube for decompression after informed consent was obtained from patient and . I also see a right lower lobe consolidation, high concern for aspiration based on bowel obstruction and vomiting. please see their read for final interpretation. Labs were obtained that demonstrated leukocytosis of 18. He has stable chronic anemia without acute drop in hemoglobin. He has reassuring chemistry with exception of mildly elevated CO2 and mildly elevated BUN. His elevated BUN could be related to volume contraction in the setting of poor oral intake, but he also could have some digestion of blood in the setting of dark emesis. No obvious active hemorrhage noted. He has dark output from his NG but it does not look like blood to me. On reassessment, patient had good improvement after administration of NG tube and interventions above. He is lying in bed, hemodynamically stable. I started him on Zosyn with concern for aspiration pneumonia in addition to the PPI drip with concern for possible GI bleeding. NG tube as stated was placed without difficulty with good tolerance. I independently interpreted x-ray obtained prior to radiology read and noted satisfactory placement of the NG tube. I had an interactive discussion with general surgery who advised they would assess the patient in the morning and they are found to be on board for admission. I had an interactive discussion with the hospitalist who admitted the patient in stable condition. Patient and at bedside updated Critical Care Critical Care Time Critical Care Time: Yes Attestation: On 10/15/24, the high probability of a clinically significant, sudden or life threatening deterioration of the following system(s) required my full and direct attention, intervention and personal management. The time I documented below is in addition to time spent performing reported procedures but includes the following listed in this critical care notation. Total Time Total Critical Care Time: 35
[2024-10-15 18:36] LABS: Albumin Level 3.9 g/dl (3.5-5.0); Chloride 100 mmol/L (98-107); Potassium 3.5 mmoL/L (3.5-5.1); Sodium 136 mmol/L (136-145)
[2024-10-15 18:39] LABS: Alanine Aminotransferase 19 U/L (12-78); Albumin/Globulin Ratio 1.4 (1.1-1.8); Alkaline Phosphatase 113 U/L (38-126); Anion Gap 3.5 mEq/L (5-15); Aspartate Amino Transferase 30 U/L (17-59); Bilirubin,Total 2.2 mg/dl (0.2-1.3); Blood Urea Nitrogen 34 mg/dl (9-20); Carbon Dioxide 36 mmol/L (22.0-30.0); Creatinine Clearance Estimated 45 mL/min (50-200); Estimated Glomerular Filt Rate 128 ml/min (>60); GFR (African American) 155 ML/MIN (>60); Globulin 2.7 g/dL (1.3-3.2); Lipase 71 U/L (23-300); Total Protein,Serum 6.6 g/dl (6.3-8.2)
[2024-10-15 18:40] LABS: Calcium 9.1 mg/dl (8.4-10.2); Glucose 147 mg/dl (74-100)
[2024-10-15 18:41] LABS: Activated Partial Thrombo Time 29.3 seconds (22.8-30.6); INR 1.14 (0.9-1.1); Prothrombin Time 12.6 seconds (10.1-12.5)
[2024-10-15] MEDS: LACTATED RINGERS 1000ML 1,000 ML 999 ML IV (18:43)
[2024-10-15] MEDS: ACETAMINOPHEN 1,000MG/100ML VIAL 1000 MG IV (18:43)
[2024-10-15] MEDS: ONDANSETRON 4MG/2ML VIAL 4 MG IV (18:43)
[2024-10-15] MEDS: PANTOPRAZOLE SODIUM 80 MG in 0.9 % SODIUM CHLORIDE 100 ML 100 MG IV (18:44)
[2024-10-15 18:54] LABS: Lactic Acid 1.2 mmol/L (0.7-2.1)
[2024-10-15 18:56] LABS: Lymphocytes % 3 % (10-50); Monocytes % 3 % (2-9); Neutrophils % 94 % (42-76); Platelet Estimate Normal; RBC Morphology Normal; Total Cells Counted 100
[2024-10-15 19:04] LABS: Troponin I < 0.01 ng/ml (0.00-0.034)
--- NOTE | 2024-10-15 19:25 | PC.NURSE ---
Report received from SHYAM Sellers
[2024-10-15] MEDS: 0.9 % SODIUM CHLORIDE 50 ML VIAL 40 ML IV (19:31)
[2024-10-15] MEDS: IOPAMIDOL-370 (76%);100ML BOTTLE 80 ML IV (19:31)
[2024-10-15] MEDS: SODIUM CHLORIDE 0.9% 10ML SYR (RAD ONLY) 10 ML IV (19:31)
--- NOTE | 2024-10-15 20:02 | XR_ITS ---
PROCEDURE INFORMATION: Exam: XR Abdomen Exam date and time: 10/15/2024 8:11 PM Age: 84 years old Clinical indication: Device placement; Gi device; Nasogastric tube; Additional info: Ng insertion TECHNIQUE: Imaging protocol: Radiologic exam of the abdomen. Views: Frontal supine view of the abdomen. 1 View. COMPARISON: CT ANGIO ABD/PEL - GI BLEED 10/15/2024 7:12 PM FINDINGS: Tubes, catheters and devices: Nasogastric tube tip projecting in the mid stomach. There are sternal wires consistent with previous sternotomy incision. Heart/Mediastinum: Prior TAVR. Lungs: Lung bases are clear. Gastrointestinal tract: Stable diffusely dilated colon measuring up to 7 cm. Intraperitoneal space: There is no free intraperitoneal air. Surgical clips in the right upper quadrant. Organs: Contrast material within the bilateral renal pelvicaliceal systems and ureters. Bones/joints: Stable right femoral neck fixation hardware. No acute skeletal abnormality or aggressive osseous lesion. Soft tissues: No acute soft tissue findings. IMPRESSION: 1. Nasogastric tube tip projecting in the mid stomach. 2. Stable diffusely dilated colon measuring up to 7 cm. In keeping with partial obstruction or ileus.
[2024-10-15] MEDS: PIPERACILLIN/TAZO 3.375 GM in 0.9 % SODIUM CHLORIDE 50 ML IV (20:32)
--- NOTE | 2024-10-15 21:17 | PC.NURSE ---
report called to SHYAM Velazquez
--- NOTE | 2024-10-15 21:57 | P.HP_ITS ---
<Statement entered by Ravinder Davis MD - 10/16/24 16:33> Rounded on patient after nurse practitioner. Personally examined and interviewed patient. Agree with exam findings and care plan as documented. History of Present Illness *Admission Date: 10/15/24 *Reason for visit:: GI bleed abdominal pain *History of present illness: This 84-year-old patient that we are familiar with has come in after admission from the senior living. Patient approximately 2 weeks ago had fallen and fractured his hip which has been repaired. Patient has developed generalized abdominal pain with distention for the last 2 days. Some diarrhea. And then had black emesis today. Patient's oral intake had decreased due to his abdominal pain. Patient has a significant history of colon cancer in the past with colon resection. Since then has had strictures that have had to be dilated last in chart was June 2024. Patient noted with an elevated white count and 18 found. Also noted for bladder wall thickening question diverticulitis of the bladder.. Patient and his last labs have noted to have urinary tract infection. ER provider has spoken with general surgery. And will be evaluated tomorrow morning to be placed up on the floor. NG tube was placed with a fairly decent amount of output. After evaluating the patient myself reviewing the labs and imaging. Do agree that the patient needs to be admitted for further care. Due to his frailty's and past medical history will place the patient on stepdown. Potential that the patient may require surgery this weekend is anticipated. I have spoken with the patient with his in the room. The patient does want to be a full code. Also in review of past medical history to see seizure disorder, cerebrovascular event, hypertension. Patient is noted with open heart surgery with aortic valve replacement. Also on CT of abdomen also noted pleural effusion right side of lung posterior [facility] Disclaimer: The information contained in this section may have been updated after the patient was seen, as this information can be updated by other users. Medical History (Updated 10/16/24 @ 14:33 by Mary Wilkinson MD) Large bowel obstruction Hematuria History of gastroesophageal reflux (GERD) History of cataract Sarcoma Sarcoma Dehydration Tremor Peripheral neuropathy Rectal stricture Chest pain Stroke Colon cancer Left hand paresthesia Left hand pain Colon stricture Chronic pain of right knee Stricture of sigmoid colon CVA (cerebrovascular accident) HTN (hypertension) Surgical History H/O hernia repair History of cataract surgery History of open heart surgery History of aortic valve replacement History of heart surgery History of cholecystectomy History of colon resection History of colonoscopy Family History Other Cancer Heart attack Social History Smoking Status: Never smoker second hand exposure: No alcohol intake: former substance use type: denies use current occupational status: retired and other Travel in the last 8 weeks: Inside the [place] adopted: No caregiver/support person: Yes foster care: No household members: spouse housing: house lives independently: No marital status: 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 occupational exposures/hazards: No caffeine: Yes Have you lived/traveled outside [place] in past 30 days?: No Contact w/someone who lives/traveled outside US past 30 days?: No Exposure to someone with infectious disease in past 14 days?: No Do you have a fever (greater than 100.4 F or 38 C)?: No Have you tested positive for COVID-19: No Exposed to someone with COVID-19 in past 14 days?: No Do you have a sore throat?: No Do you have a cough?: No Do you have any weakness?: No Are you experiencing any nausea/vomitting?: Yes Do you have any diarrhea?: No Are you experiencing any unusual bleeding?: No Do you have any muscle aches/pain?: No Do you have any abdominal pain?: Yes Are you experiencing loss of taste or smell?: No Other Medical History Have you received the Flu Vaccine for this season: No Have you received the Pneumonia Vaccine: No Review of Systems Review of Systems Review of systems:: pertinent systems reviewed and negative unless documented below Constitutional Constitutional: Reports as per HPI, Reports body ache(s), Reports frequent falls, Reports poor appetite and Reports weakness Comments: Patient is lying in bed with his past medical history did not try to sit or stand him. Patient's in room they are having good conversation, correcting each other at the details of their statements are little off from the other person's memory. But is alert and oriented does not appear to be any significant discomfort at this time Eyes Eyes: Reports as per HPI ENT Ears, Nose, Mouth, and Throat: Reports as per HPI *Cardiovascular Cardiovascular: Reports as per HPI *Respiratory Respiratory: Reports as per HPI *Gastrointestinal Gastrointestinal: Reports as per HPI, Reports abdominal pain, Reports constipation, Reports dyspepsia and Reports hematemesis *Genitourinary Genitourinary: Reports as per HPI and Reports hematuria *Musculoskeletal Musculoskeletal: Reports as per HPI, Reports atrophy and Reports myalgias Comments: Thin framed man who is getting over hip replacement., Integumentary/Breasts Skin/Breast: Reports as per HPI *Neurologic Neurologic: Reports as per HPI, Reports frequent falls and Reports weakness Comments: Thin framed male that is status post hip replacement. Still in rehab at [facility] Psychiatric Psychiatric: Reports as per HPI Endocrine Endocrine: Reports as per HPI Hematologic/Lymphatic Hematologic/Lymphatic: Reports as per HPI Allergic/Immunologic Allergic/Immunologic: Reports as per HPI Meds Home Medications and Allergies Home Medications ?Medication ?Instructions ?Recorded ?Confirmed ?Type lisinopril 10 mg tablet 10 mg PO DAILY 02/20/20 10/15/24 History omeprazole magnesium 20 mg 20 mg PO DAILY 03/03/24 10/15/24 History tablet,delayed release duloxetine 60 mg capsule,delayed 60 mg PO BID #60 caps 08/26/24 10/15/24 Rx release gabapentin 300 mg capsule 900 mg PO DAILY 10/04/24 10/15/24 History amlodipine 2.5 mg tablet 2.5 mg PO DAILY 10/05/24 10/15/24 History gabapentin 300 mg capsule 1,200 mg PO HS 10/05/24 10/15/24 History aspirin 81 mg tablet,delayed 81 mg PO BID 26 days #52 tabs 10/07/24 10/15/24 Rx release atorvastatin 40 mg tablet 20 mg (1/2 x 40 mg) PO HS 30 days 10/07/24 10/15/24 Rx #15 tabs finasteride 5 mg tablet 5 mg PO DAILY 30 days #30 tabs 10/07/24 10/15/24 Rx methocarbamol 500 mg tablet 500 mg PO BIDP PRN back, hip pain 10/07/24 10/15/24 Rx #30 tabs polyethylene glycol 3350 17 17 g PO DAILY #510 grams 10/07/24 10/15/24 Rx gram/dose oral powder (Miralax) tamsulosin 0.4 mg capsule (Flomax) 0.8 mg (2 x 0.4 mg) PO DAILY 10/07/24 10/15/24 Rx days #90 caps New Prescriptions to Start Prescriptions: Allergies Allergy/AdvReac Type Severity Reaction Status Date / Time No Known Allergies Allergy Verified 10/04/24 18:24 Exam Data for Last 24 hours Vital signs and Labs for Last 24 Hours: Temp Pulse Resp BP Pulse Ox O2 Del Method 98.1 F 89 20 137/72 94 L Room Air 10/15/24 21:17 10/15/24 21:17 10/15/24 21:17 10/15/24 21:17 10/15/24 20:15 10/15/24 21:17 Laboratory Results - last 24 hr 10/15/24 18:15: WBC 18.5 H, RBC 3.48 L, Hgb 10.9 L, Hct 31.8 L, MCV 91.4, MCH 31.3 H, MCHC 34.3, RDW 12.5, Plt Count 395, MPV 11.0 H, Neut % (Auto) 92.3 H, Lymph % (Auto) 2.9 L, [place] % (Auto) 4.0, Eos % (Auto) 0.2, Baso % (Auto) 0.2, Neut # (Auto) 17.1 H, Lymph # (Auto) 0.5 L, [place] # (Auto) 0.7, Eos # (Auto) 0.0, Baso # (Auto) 0.0, Total Counted 100, Neutrophils % (Manual) 94 H, Lymphocytes % (Manual) 3 L, Monocytes % (Manual) 3, Platelet Estimate Normal, RBC Morphology Normal, PT 12.6 H, INR 1.14 H, APTT 29.3, Sodium 136, Potassium 3.5, Chloride 100, Carbon Dioxide 36 H, Anion Gap 3.5 L, BUN 34 H, Creatinine 0.60 L, Estimated Creat Clear 45, Estimated GFR 128, Est GFR ( Amer) 155, Glucose 147 H, Calcium 9.1, Total Bilirubin 2.2 H, AST 30, ALT 19, Alkaline Phosphatase 113, Troponin I < 0.01, Total Protein 6.6, Albumin 3.9, Globulin 2.7, Albumin/Globulin Ratio 1.4, Lipase 71 10/15/24 18:34: Lactate 1.2, Blood Type A Positive, Antibody Screen Negative I & O for Last 24 hours: Intake & Output 10/13/24 10/14/24 10/15/24 10/16/24 05:59 05:59 05:59 05:59 Weight 130 lb Radiology Reports for the Last 24 Hours: The CT of abdomen Narrative: . 6.6 mm penetrating atherosclerotic ulcer in the proximal left common iliac artery. No evidence of perforation or rupture. 2. Concern for possible nxbc-az-rbrfizre stenosis at the rectosigmoid anastomosis with concomitant segmental colitis to the sigmoid which is just proximal to the anastomotic sutures. This in turn is causing a upstream colonic dilation (either an ileus or partial obstruction) without evidence of perforation. Considering that the anastomosis is similar to prior studies, and ileus would be more likely. 3. No definitive evidence for acute GI bleed. 4. Transient small bowel intussusception in the right upper quadrant. This is a self-limiting process in adults. Consider follow-up if warranted. 5. Trace bilateral pleural effusions, slightly larger on the right, with chronic pleural calcifications. 6. High likelihood of compressive atelectasis in the right lung base. Superimposed infectious pneumonic process should be entertained in the Constitutional Constitutional: mild distress, thin and cooperative *Routine HEENT Exam Head: Present normocephalic and atraumatic Eye: Present PERRL and normal accommodation ENT: Present mucous membranes moist, oropharynx clear and nares patent Comments: Patient has clear speech is has an NG in, *Routine Neck Exam Neck: Present supple and full ROM Comments: Patient is able to turn his head from [id number] Routine Chest/Breast/Axilla Exam Comments: As noted I did not sit the patient up related to his abdomen. But the patient showed no chest wall tenderness and anterior side or had no complaint of pain *Routine Respiratory Exam Respiratory: Present decreased breath sounds, normal respiratory effort, able to speak in complete sentences and symmetric chest movement Comments: Lungs were clear with good equal expansion on both sides. *Routine Cardiovascular Exam Cardiovascular: Present RRR Comments: EKG reviewed rate 95 a few PVCs but in normal sinus rhythm, noting chest wall that patient has had cardiac surgery with aortic valve replaced *Routine Abdominal Exam Abdominal: Present soft Comments: Generalized tenderness to the abdomen, now that NG is in there is no distention. And he is not guarding, but did not do deep palpation on the patient. *Routine Rectal Exam Rectal:: deferred *Routine Genitalia Exam Genitalia:: deferred *Routine Extremities Exam Extremities: Present full ROM Comments: The right hip is still limited related to having hip replaced done 2 weeks ago., But no edema to the lower extremities, skin is warm to touch. Patient had IVs placed Routine Back/Spine/Pelvis Exam Comments: As noted patient has had a history of long-term pain before with injections to SI joint now presently rehabbing from hip replacement., Patient had no complaints of back pain. But did not stand or have the patient twist or bend. *Routine Skin Exam Skin: Present intact, dry and warm *Routine Neurological Exam Neurological: Present alert, oriented X3, CN II-XII intact, vision grossly intact, hearing grossly intact and normal speech Comments: No acute neurologic deficits found Routine Psychiatric Exam Psychiatric: Present normal affect, normal thought process, cooperative, good insight and good judgment Comments: Absolutely remarkable that the gentleman's been through much but he is totally alert and oriented and appropriate during exam he is able to converse with his showing good recent memory. H&P: Result Impressions 1. Vomiting blood with history of bowel obstruction and stenosis of lower bowel. NG placed before NG large amount of bowel gas noted throughout the colon and small intestine with a reducible hernia 2. Recent hip fracture with repair. 3. Long history of urinary wall thickening also recent Klebsiella infection in the past. Presently having increased white count. Imaging and Cardiology CT scan - abdomen: Additional comments: . 6.6 mm penetrating atherosclerotic ulcer in the proximal left common iliac artery. No evidence of perforation or rupture. 2. Concern for possible kgrn-id-kvmodosi stenosis at the rectosigmoid anastomosis with concomitant segmental colitis to the sigmoid which is just proximal to the anastomotic sutures. This in turn is causing a upstream colonic dilation (either an ileus or partial obstruction) without evidence of perforation. Considering that the anastomosis is similar to prior studies, and ileus would be more likely. 3. No definitive evidence for acute GI bleed. 4. Transient small bowel intussusception in the right upper quadrant. This is a self-limiting process in adults. Consider follow-up if warranted. 5. Trace bilateral pleural effusions, slightly larger on the right, with chronic pleural calcifications. 6. High likelihood of compressive atelectasis in the right lung base. Superimposed infectious pneumonic process should be entertained in the Assessment and Plan *Assessment and plan (1) Bowel obstruction: Status: Acute Qualifiers: Intestinal obstruction type: unspecified ileus Qualified Code(s): K56.7 - Ileus, unspecified Category: Medical Code(s): K56.609 - Unspecified intestinal obstruction, unspecified as to partial versus complete obstruction (2) Hematemesis: Status: Acute Qualifiers: Nausea presence: with nausea Qualified Code(s): K92.0 - Hematemesis Category: Medical Code(s): K92.0 - Hematemesis (3) UTI (urinary tract infection): Status: Acute Qualifiers: Hematuria presence: without hematuria Urinary tract infection type: site unspecified Qualified Code(s): N39.0 - Urinary tract infection, site not specified Category: Medical Code(s): N39.0 - Urinary tract infection, site not specified (4) Abdominal pain: Status: Resolved Qualifiers: Abdominal location: generalized Qualified Code(s): R10.84 - Generalized abdominal pain Category: Medical Code(s): R10.9 - Unspecified abdominal pain (5) Elevated white blood cell count: Status: Acute Qualifiers: Leukocytosis type: other Qualified Code(s): D72.828 - Other elevated white blood cell count Category: Medical Code(s): D72.829 - Elevated white blood cell count, unspecified (6) Pleural effusion: Status: Acute Category: Medical Code(s): J90 - Pleural effusion, not elsewhere classified (7) Gait disturbance: Status: Acute Category: Medical Code(s): R26.9 - Unspecified abnormalities of gait and mobility (8) Peripheral vascular disease: Status: Acute Category: Medical Code(s): I73.9 - Peripheral vascular disease, unspecified Plan 1. Emergency room provider has contacted general surgery who will evaluate the patient in the morning. Patient will be placed as a stepdown unit. Be able to monitor the patient overnight., Plan to start IV antibiotics and continue due to elevated white count of unknown source.. Will continue to maintain fluids check lab labs of the patient also maintain comfort level. CT scan showing that the bowel is blocked. General surgeon has been consulted and will be in to see the patient in the morning. 2. Patient has right lung pleural effusion. Patient is on antibiotics for this will continue to monitor. From my review of CT, has some stranding at anastomosis in his colon. Appears to have partial to complete obstruction. Will monitor for bowel movements. Decompressed with NG. Surgery consulted and evaluating in the morning. Repeat CBC, CMP, magnesium ordered in the morning
--- NOTE | 2024-10-15 22:04 | PC.NURSE ---
pt to unit via stretcher at 21:45
[2024-10-15] MEDS: 0.9 % SODIUM CHLORIDE 1000ML 1,000 ML 100 ML IV (22:19)
[2024-10-15] MEDS: MORPHINE 2MG/ML SYRINGE 2 MG IV (22:20)
[2024-10-15] MEDS: FAMOTIDINE 20MG/2ML VIAL 20 MG IV (22:21)
[2024-10-15 22:55] LABS: Microscopic, Urine URINE MICROSCOPIC (MICROSCOPIC)
[2024-10-15 23:06] LABS: Appearance,Urine CLEAR (Clear); Bilirubin,Urine Negative (Negative); Blood, Urine MODERATE (Negative); Glucose,Urine (UA) Negative (Negative); Ketones,Urine Negative (Negative); Leukocyte Esterase,Urine Negative (Negative); Nitrate,Urine Negative (Negative); PH,Urine 5.5 (5.0-8.5); Protein,Urine Negative (Negative); Specific Gravity, Urine >= 1.030 (1.005-1.030); Urobilinogen,Urine 0.2 EU/dl (0.2)
[2024-10-15 23:12] LABS: Color,Urine Amber (Yellow)
[2024-10-15 23:20] LABS: RBC,Urine 20-50 #/hpf (0-3); Squamous Epithelial Cell,Urine Occasional #/hpf (0-5); WBC,Urine Occasional #/hpf (0-3)
[2024-10-15 23:21] LABS: Bacteria,Urine Trace /lpf; Mucus,Urine 1+ /lpf
[2024-10-16] VITALS (10 sets, daily range): BP systolic 127–184; BP diastolic 61–88; PULSE 83–91; RESP 12–19; TEMP 36.4–37.4; O2SAT 88–96
[2024-10-16 00:54] LABS: Troponin I 0.01 ng/ml (0.00-0.034)
--- NOTE | 2024-10-16 03:37 | PC.NURSE ---
pt oxygen saturation dropped down into the 40s. pt was in a deep sleep. after waking up pt, his oxygen came back up to the low 90s. pt went back to sleep and oxygen started dropping again pt is now on 2l of oxygen via nasal cannula.
[2024-10-16] MEDS: PIPERACILLIN/TAZO 3.375 GM in 0.9 % SODIUM CHLORIDE 50 ML IV ×3 (04:05→18:00)
--- NOTE | 2024-10-16 06:31 | PC.NURSE ---
pt is alert and oriented, pt does have garbled speech but its from a previous cva. has a small bowel obstruction, ng tube placed in the right nare is at 60. its a 14f ng. abodmen is tender on palpation. maintance fluids going at 100 ml/hr. pt is npo. has a consult with general surgery. Pt does self cath usually when at home, but last week pt fell and broke hip resulting in hip surgery and is now unable to do it at this time. Pt states he self caths at 0800, 1600, and 2230. During the night pt has a 3beat run of vtach while he was sleeping. pt oxygen dropped down in the 40s while sleeping also and 2 l per nasal cannula was placed. pts is at bedside. pt received bed bath this am.
[2024-10-16] MEDS: MORPHINE 2MG/ML SYRINGE 2 MG IV ×6 (06:44→22:14)
[2024-10-16 07:40] LABS: Lymphocytes # 0.7 K/mm3 (0.7-4.5); Monocytes # 0.8 K/mm3 (0.1-1.0); Red Cell Distribution Width 12.6 % (11.5-17.5); White Blood Count 10.7 K/mm3 (4.8-10.8)
[2024-10-16 07:47] LABS: Basophils % 0.4 % (0.1-2.0); Eosinophils % 0.1 % (0.1-12.0); Hematocrit 25.4 % (42.0-52.0); Hemoglobin 8.8 g/dL (14.1-18.0); Lymphocytes % 6.1 % (10-50); Mean Corpuscular HGB Conc 34.6 g/dL (31.8-35.4); Mean Corpuscular Hemoglobin 31.8 pg (27.0-31.2); Mean Corpuscular Volume 91.7 fl (80-94); Mean Platelet Volume 10.8 fl (7.4-10.4); Monocytes % 7.2 % (1.7-9.3); Neutrophils # 9.2 K/mm3 (1.8-7.8); Neutrophils % 85.8 % (37.0-80.0); Platelet Count 287 K/mm3 (142-424); Red Blood Count 2.77 M/mm3 (4.60-6.20)
[2024-10-16 07:52] LABS: Alanine Aminotransferase 13 U/L (12-78); Albumin/Globulin Ratio 1.3 (1.1-1.8); Alkaline Phosphatase 80 U/L (38-126); Anion Gap 7.3 mEq/L (5-15); Aspartate Amino Transferase 22 U/L (17-59); Bilirubin,Total 1.7 mg/dl (0.2-1.3); Blood Urea Nitrogen 29 mg/dl (9-20); Calcium 9.1 mg/dl (8.4-10.2); Carbon Dioxide 27 mmol/L (22.0-30.0); Chloride 106 mmol/L (98-107); Creatinine Clearance Estimated 46 mL/min (50-200); Estimated Glomerular Filt Rate 128 ml/min (>60); GFR (African American) 155 ML/MIN (>60); Globulin 2.3 g/dL (1.3-3.2); Glucose 102 mg/dl (74-100); Magnesium 2.2 mg/dl (1.6-2.3); Potassium 3.3 mmoL/L (3.5-5.1); Sodium 137 mmol/L (136-145); Total Protein,Serum 5.3 g/dl (6.3-8.2)
[2024-10-16 07:55] LABS: Activated Partial Thrombo Time 29.8 seconds (22.8-30.6)
[2024-10-16 07:58] LABS: Lactic Acid 0.7 mmol/L (0.7-2.1)
--- NOTE | 2024-10-16 08:21 | HMH.PHAINT1 ---
Pharmacy Intervention Comments: MEDICATION RECONCILIATION COMPLETED ON PATIENT USING EXTERNAL FILL HISTORY FROM PHARMACY, KELL REPORT, AND DISCHARGE SUMMARY FROM PREVIOUS ADMISSION. -MERLENE RUBYD
[2024-10-16] MEDS: SODIUM CHLORIDE 0.9% 10ML VIAL 8 ML IV (08:45)
[2024-10-16] MEDS: FAMOTIDINE 20MG/2ML VIAL 20 MG IV (08:45)
[2024-10-16] MEDS: 0.9 % SODIUM CHLORIDE 1000ML 1,000 ML 100 ML IV (08:49)
[2024-10-16 11:08] LABS: POC Glucose,Bedside 118 (70-110)
[2024-10-16] MEDS: KCl 10mEq/100ml 100 ML 100 MEQ IV ×6 (11:26→17:57)
[2024-10-16 13:01] LABS: Troponin I 0.01 ng/ml (0.00-0.034)
--- NOTE | 2024-10-16 14:28 | EXP.SURG.CON ---
History of Present Illness *Admission Date: 10/15/24 *History of present illness: Mr. Adorno is an 84-year-old male admitted from sn[facility], where he was convalescing after hip fracture that was repaired approximately 2 weeks ago. 48 hours ago, he developed worsening lower abdominal pain and distention. He had an episode of diarrhea yesterday, and had many episodes of vomiting and black emesis. He was brought to the emergency room, where a CT scan was notable for large bowel obstruction likely at anastomotic stricture after previous colon resection. He has seen Dr. Rm approximately every 3 months for endoscopic dilation of stricture, and actually had a follow-up scheduled in the next few weeks. An NG tube was placed in the emergency room, and he is more comfortable today. from admission H&P This 84-year-old patient that we are familiar with has come in after admission from the snf. Patient approximately 2 weeks ago had fallen and fractured his hip which has been repaired. Patient has developed generalized abdominal pain with distention for the last 2 days. Some diarrhea. And then had black emesis today. Patient's oral intake had decreased due to his abdominal pain. Patient has a significant history of colon cancer in the past with colon resection. Since then has had strictures that have had to be dilated last in chart was June 2024. Patient noted with an elevated white count and 18 found. Also noted for bladder wall thickening question diverticulitis of the bladder.. Patient and his last labs have noted to have urinary tract infection. ER provider has spoken with general surgery. And will be evaluated tomorrow morning to be placed up on the floor. NG tube was placed with a fairly decent amount of output. After evaluating the patient myself reviewing the labs and imaging. Do agree that the patient needs to be admitted for further care. Due to his frailty's and past medical history will place the patient on stepdown. Potential that the patient may require surgery this weekend is anticipated. I have spoken with the patient with his in the room. The patient does want to be a full code. Also in review of past medical history to see seizure disorder, cerebrovascular event, hypertension. Patient is noted with open heart surgery with aortic valve replacement. Also on CT of abdomen also noted pleural effusion right side of lung [facility] Dis[facility]: The information contained in this section may have been updated after the patient was seen, as this information can be updated by other users. Medical History (Updated 10/16/24 @ 14:33 by Mary Wilkinson MD) Large bowel obstruction Hematuria History of gastroesophageal reflux (GERD) History of cataract Sarcoma Sarcoma Dehydration Tremor Peripheral neuropathy Rectal stricture Chest pain Stroke Colon cancer Left hand paresthesia Left hand pain Colon stricture Chronic pain of right knee Stricture of sigmoid colon CVA (cerebrovascular accident) HTN (hypertension) Surgical History H/O hernia repair History of cataract surgery History of open heart surgery History of aortic valve replacement History of heart surgery History of cholecystectomy History of colon resection History of colonoscopy Family History Other Cancer Heart attack Social History Smoking Status: Never smoker second hand exposure: No alcohol intake: former substance use type: denies use current occupational status: retired and other Travel in the last 8 weeks: Inside the [facility] adopted: No caregiver/support person: Yes foster care: No household members: spouse housing: house lives independently: No marital status: 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 occupational exposures/hazards: No caffeine: Yes Have you lived/traveled outside [place] in past 30 days?: No Contact w/someone who lives/traveled outside US past 30 days?: No Exposure to someone with infectious disease in past 14 days?: No Do you have a fever (greater than 100.4 F or 38 C)?: No Have you tested positive for COVID-19: No Exposed to someone with COVID-19 in past 14 days?: No Do you have a sore throat?: No Do you have a cough?: No Do you have any weakness?: No Are you experiencing any nausea/vomitting?: Yes Do you have any diarrhea?: No Are you experiencing any unusual bleeding?: No Do you have any muscle aches/pain?: No Do you have any abdominal pain?: Yes Are you experiencing loss of taste or smell?: No Review of Systems Constitutional Constitutional: Reports frequent falls and Reports weakness *Neurologic Neurologic: Reports as per HPI, Reports frequent falls and Reports weakness Meds Home Medications and Allergies Home Medications ?Medication ?Instructions ?Recorded ?Confirmed ?Type lisinopril 10 mg tablet 10 mg PO DAILY 02/20/20 10/15/24 History omeprazole magnesium 20 mg 20 mg PO DAILY 03/03/24 10/15/24 History tablet,delayed release duloxetine 60 mg capsule,delayed 60 mg PO BID #60 caps 08/26/24 10/15/24 Rx release gabapentin 300 mg capsule 900 mg PO DAILY 10/04/24 10/15/24 History amlodipine 2.5 mg tablet 2.5 mg PO DAILY 10/05/24 10/15/24 History gabapentin 300 mg capsule 1,200 mg PO HS 10/05/24 10/15/24 History aspirin 81 mg tablet,delayed 81 mg PO BID 26 days #52 tabs 10/07/24 10/15/24 Rx release atorvastatin 40 mg tablet 20 mg (1/2 x 40 mg) PO HS 30 days 10/07/24 10/15/24 Rx #15 tabs finasteride 5 mg tablet 5 mg PO DAILY 30 days #30 tabs 10/07/24 10/15/24 Rx methocarbamol 500 mg tablet 500 mg PO BIDP PRN back, hip pain 10/07/24 10/15/24 Rx #30 tabs polyethylene glycol 3350 17 17 g PO DAILY #510 grams 10/07/24 10/15/24 Rx gram/dose oral powder (Miralax) tamsulosin 0.4 mg capsule (Flomax) 0.8 mg (2 x 0.4 mg) PO DAILY 90 10/07/24 10/15/24 Rx days #90 caps New Prescriptions to Start Prescriptions: Allergies Allergy/AdvReac Type Severity Reaction Status Date / Time No Known Allergies Allergy Verified 10/04/24 18:24 Exam (Inpt) Vital signs and Labs for Last 24 Hours: Temp Pulse Resp BP Pulse Ox O2 Del Method O2 Flow Rate 99.0 F 84 14 139/75 93 L Room Air 2 10/16/24 12:00 10/16/24 14:00 10/16/24 14:00 10/16/24 14:00 10/16/24 14:00 10/16/24 14:00 10/16/24 12:00 Laboratory Results - last 24 hr 10/15/24 18:15: WBC 18.5 H, RBC 3.48 L, Hgb 10.9 L, Hct 31.8 L, MCV 91.4, MCH 31.3 H, MCHC 34.3, RDW 12.5, Plt Count 395, MPV 11.0 H, Neut % (Auto) 92.3 H, Lymph % (Auto) 2.9 L, [place] % (Auto) 4.0, Eos % (Auto) 0.2, Baso % (Auto) 0.2, Neut # (Auto) 17.1 H, Lymph # (Auto) 0.5 L, [place] # (Auto) 0.7, Eos # (Auto) 0.0, Baso # (Auto) 0.0, Total Counted 100, Neutrophils % (Manual) 94 H, Lymphocytes % (Manual) 3 L, Monocytes % (Manual) 3, Platelet Estimate Normal, RBC Morphology Normal, PT 12.6 H, INR 1.14 H, APTT 29.3, Sodium 136, Potassium 3.5, Chloride 100, Carbon Dioxide 36 H, Anion Gap 3.5 L, BUN 34 H, Creatinine 0.60 L, Estimated Creat Clear 45, Estimated GFR 128, Est GFR ( Amer) 155, Glucose 147 H, Calcium 9.1, Total Bilirubin 2.2 H, AST 30, ALT 19, Alkaline Phosphatase 113, Troponin I < 0.01, Total Protein 6.6, Albumin 3.9, Globulin 2.7, Albumin/Globulin Ratio 1.4, Lipase 71 10/15/24 18:34: Lactate 1.2, Blood Type A Positive, Antibody Screen Negative 10/15/24 22:46: Urine Color [place], Urine Appearance Clear, Urine pH 5.5, Ur Specific [place] >= 1.030, Urine Protein Negative, Urine Glucose (UA) Negative, Urine Ketones Negative, Urine Blood Moderate, Urine Nitrate Negative, Urine Bilirubin Negative, Urine Urobilinogen 0.2, Ur Leukocyte Esterase Negative, Urine RBC 20-50, Urine WBC Occasional, Ur Squamous Epith Cells Occasional, Urine Bacteria Trace, Urine Mucus 1+ 10/15/24 23:20: Troponin I 0.01 10/16/24 07:15: Troponin I 0.01 10/16/24 07:16: WBC 10.7 D, RBC 2.77 L, Hgb 8.8 L D, Hct 25.4 L, MCV 91.7, MCH 31.8 H, MCHC 34.6, RDW 12.6, Plt Count 287 D, MPV 10.8 H, Neut % (Auto) 85.8 H, Lymph % (Auto) 6.1 L, [place] % (Auto) 7.2, Eos % (Auto) 0.1, Baso % (Auto) 0.4, Neut # (Auto) 9.2 H, Lymph # (Auto) 0.7, [place] # (Auto) 0.8, Eos # (Auto) 0.0, Baso # (Auto) 0.0, APTT 29.8, Sodium 137, Potassium 3.3 L, Chloride 106, Carbon Dioxide 27, Anion Gap 7.3, BUN 29 H, Creatinine 0.60 L, Estimated Creat Clear 46, Estimated GFR 128, Est GFR ( Amer) 155, Glucose 102 H D, Lactate 0.7, Calcium 9.1, Magnesium 2.2, Total Bilirubin 1.7 H, AST 22 D, ALT 13 D, Alkaline Phosphatase 80, Total Protein 5.3 L, Albumin 3.0 L D, Globulin 2.3, Albumin/Globulin Ratio 1.3 10/16/24 11:00: POC Glucose 118 H I & O for Labs for Last 24 Hours: Intake & Output 10/13/24 10/14/24 10/15/24 10/16/24 23:59 23:59 23:59 23:59 Intake Total 817 / 817 Output Total 600 / 600 300 / 300 Balance -600 / -600 517 / 517 Weight 131 lb 9.6 oz Constitutional: no acute distress Head: Present normocephalic and atraumatic Comment:: Nasogastric tube in place with black gritty output in canister Neck: Present normal inspection and trachea midline Respiratory: Absent accessory muscle use Cardiac: Present Reg Rate and Rhythm Comments:: Distended but soft, no point tenderness or peritonitis. Bowel sounds with some rushes. Rectal (male): Present deferred (male): Present deferred Neuro: Present alert, awake and oriented x 3 Results Labs 10/16/24 07:16 10/16/24 07:16 Labs: Laboratory Results - last 24 hr 10/15/24 18:15: WBC 18.5 H, RBC 3.48 L, Hgb 10.9 L, Hct 31.8 L, MCV 91.4, MCH 31.3 H, MCHC 34.3, RDW 12.5, Plt Count 395, MPV 11.0 H, Neut % (Auto) 92.3 H, Lymph % (Auto) 2.9 L, [place] % (Auto) 4.0, Eos % (Auto) 0.2, Baso % (Auto) 0.2, Neut # (Auto) 17.1 H, Lymph # (Auto) 0.5 L, [place] # (Auto) 0.7, Eos # (Auto) 0.0, Baso # (Auto) 0.0, Total Counted 100, Neutrophils % (Manual) 94 H, Lymphocytes % (Manual) 3 L, Monocytes % (Manual) 3, Platelet Estimate Normal, RBC Morphology Normal, PT 12.6 H, INR 1.14 H, APTT 29.3, Sodium 136, Potassium 3.5, Chloride 100, Carbon Dioxide 36 H, Anion Gap 3.5 L, BUN 34 H, Creatinine 0.60 L, Estimated Creat Clear 45, Estimated GFR 128, Est GFR ( Amer) 155, Glucose 147 H, Calcium 9.1, Total Bilirubin 2.2 H, AST 30, ALT 19, Alkaline Phosphatase 113, Troponin I < 0.01, Total Protein 6.6, Albumin 3.9, Globulin 2.7, Albumin/Globulin Ratio 1.4, Lipase 71 10/15/24 18:34: Lactate 1.2, Blood Type A Positive, Antibody Screen Negative 10/15/24 22:46: Urine Color Naomie, Urine Appearance Clear, Urine pH 5.5, Ur Specific [place] >= 1.030, Urine Protein Negative, Urine Glucose (UA) Negative, Urine Ketones Negative, Urine Blood Moderate, Urine Nitrate Negative, Urine Bilirubin Negative, Urine Urobilinogen 0.2, Ur Leukocyte Esterase Negative, Urine RBC 20-50, Urine WBC Occasional, Ur Squamous Epith Cells Occasional, Urine Bacteria Trace, Urine Mucus 1+ 10/15/24 23:20: Troponin I 0.01 10/16/24 07:15: Troponin I 0.01 10/16/24 07:16: WBC 10.7 D, RBC 2.77 L, Hgb 8.8 L D, Hct 25.4 L, MCV 91.7, MCH 31.8 H, MCHC 34.6, RDW 12.6, Plt Count 287 D, MPV 10.8 H, Neut % (Auto) 85.8 H, Lymph % (Auto) 6.1 L, [place] % (Auto) 7.2, Eos % (Auto) 0.1, Baso % (Auto) 0.4, Neut # (Auto) 9.2 H, Lymph # (Auto) 0.7, [place] # (Auto) 0.8, Eos # (Auto) 0.0, Baso # (Auto) 0.0, APTT 29.8, Sodium 137, Potassium 3.3 L, Chloride 106, Carbon Dioxide 27, Anion Gap 7.3, BUN 29 H, Creatinine 0.60 L, Estimated Creat Clear 46, Estimated GFR 128, Est GFR ( Amer) 155, Glucose 102 H D, Lactate 0.7, Calcium 9.1, Magnesium 2.2, Total Bilirubin 1.7 H, AST 22 D, ALT 13 D, Alkaline Phosphatase 80, Total Protein 5.3 L, Albumin 3.0 L D, Globulin 2.3, Albumin/Globulin Ratio 1.3 10/16/24 11:00: POC Glucose 118 H Imaging Abdominal x-ray: report reviewed and image reviewed CT scan - abdomen: report reviewed and image reviewed Assessment and Plan *Assessment and plan (1) Large bowel obstruction: Status: Acute Category: Medical Code(s): K56.609 - Unspecified intestinal obstruction, unspecified as to partial versus complete obstruction Plan: Large bowel obstruction with transition point at old anastomotic stricture, status post resection for left-sided colon or rectal cancer. He is stable today, and more comfortable with NG tube. KUB still shows dilated colon. Initial leukocytosis has down trended after fluids. Hemoglobin also with slight decrease. NG tube output appears to contain old blood. Review of chart shows last endoscopic dilation of colonic anastomotic stricture [address] Rm. Hopefully can have repeat dilation of stricture to resolve large bowel obstruction early week. If he becomes unstable or develops signs of peritonitis/sepsis, would require emergent diverting transverse loop colostomy. Patient and his are in favor of repeat endoscopic dilation. (2) Hematemesis: Status: Acute Qualifiers: Nausea presence: with nausea Qualified Code(s): K92.0 - Hematemesis Category: Medical Code(s): K92.0 - Hematemesis (3) Intertrochanteric fracture of femur: Status: Acute Qualifiers: Encounter type: initial encounter Fracture alignment: nondisplaced Fracture type: closed Laterality: right Qualified Code(s): S72.144A - Nondisplaced intertrochanteric fracture of right femur, initial encounter for closed fracture Category: Medical Code(s): S72.143A - Displaced intertrochanteric fracture of unspecified femur, initial encounter for closed fracture (4) History of colon cancer: Status: Inactive Category: Medical Code(s): Z85.038 - Personal history of other malignant neoplasm of large intestine (5) History of CVA (cerebrovascular accident): Problem Comment: Declined aspirin for secondary stroke prevention. Status: Chronic Category: Medical Code(s): Z86.73 - Personal history of transient ischemic attack (TIA), and cerebral infarction without residual deficits
--- NOTE | 2024-10-16 16:23 | P.PN_ITS ---
Subjective *Date: 10/16/24 *Time: 16:23 Interval history: States he is feeling somewhat better this morning. Has had a few very small bowel movements. Denies any nausea. No chest pain. Stable on room air. Medical Exam Vital signs and Labs for Last 24 Hours: Vital Signs Temp Pulse Pulse Resp BP BP Pulse Ox 10/16/24 15:00 10/16/24 14:00 84 14 139/75 93 L 10/16/24 13:00 87 12 142/70 H 92 L 10/16/24 13:00 10/16/24 12:00 89 10/16/24 12:00 87 14 127/70 92 L 10/16/24 12:00 99.0 F 89 15 127/70 88 L 10/16/24 11:00 10/16/24 10:00 88 12 131/61 91 L 10/16/24 09:00 10/16/24 08:00 85 10/16/24 08:00 86 19 127/67 94 L 10/16/24 08:00 19 94 L 10/16/24 08:00 98.9 F 87 14 128/67 90 L 10/16/24 06:51 10/16/24 05:00 10/16/24 04:00 85 95 10/16/24 04:00 97.6 F 87 18 131/68 96 10/16/24 04:00 90 10/16/24 02:55 10/16/24 01:00 10/16/24 00:01 90 10/16/24 00:00 99.4 F 91 H 19 147/72 H 91 L 10/15/24 23:00 10/15/24 22:30 90 91 L 10/15/24 22:09 90 10/15/24 21:39 99.7 F H 90 13 143/63 H 93 L 10/15/24 21:17 98.1 F 89 20 137/72 10/15/24 21:00 137/72 10/15/24 20:30 147/80 H 10/15/24 20:15 94 H 94 L 10/15/24 20:00 89 137/73 95 10/15/24 19:01 66 147/73 H 93 L 10/15/24 18:30 91 H 142/75 H 94 L 10/15/24 18:26 97.9 F 89 18 165/97 H 96 O2 Del Method O2 Flow Rate 10/16/24 15:00 Room Air 10/16/24 14:00 Room Air 10/16/24 13:00 Room Air 10/16/24 13:00 Room Air 10/16/24 12:00 10/16/24 12:00 Room Air 10/16/24 12:00 Nasal Cannula 2 10/16/24 11:00 Room Air 10/16/24 10:00 Nasal Cannula 2 10/16/24 09:00 Room Air 10/16/24 08:00 10/16/24 08:00 Room Air 10/16/24 08:00 Room Air 10/16/24 08:00 Nasal Cannula 2 10/16/24 06:51 Nasal Cannula 2 10/16/24 05:00 Nasal Cannula 2 10/16/24 04:00 Nasal Cannula 2 10/16/24 04:00 Room Air 10/16/24 04:00 10/16/24 02:55 Room Air 10/16/24 01:00 Room Air 10/16/24 00:01 10/16/24 00:00 Room Air 10/15/24 23:00 Room Air 10/15/24 22:30 Room Air 10/15/24 22:09 10/15/24 21:39 Room Air 10/15/24 21:17 Room Air 10/15/24 21:00 Room Air 10/15/24 20:30 Room Air 10/15/24 20:15 Room Air 10/15/24 20:00 Room Air 10/15/24 19:01 Room Air 10/15/24 18:30 Nasal Cannula 10/15/24 18:26 Room Air Intake and Output 10/16/24 10/16/24 10/16/24 07:59 15:59 23:59 Intake Total 817 / 817 Output Total 300 / 300 Balance 817 / 517 -300 / 517 Intake: Intake, Total IV Amount 817 / 817 0.9 % Sodium Chloride 1000ML 1, 767 / 767 000 ml @ 100 mls/hr IV .Q10H [facility] Rx#:[id number] Piperacillin/Tazo 3.375 gm In 0 50 / 50 .9 % Sodium Chloride 50 ml @ 100 mls/hr IV Q8H [facility] Rx#: [id number] Output: Output, Urine Amount 300 / 300 Other: Number of Bowel Movements 1 1 Laboratory Results - last 24 hr 10/15/24 18:15: WBC 18.5 H, RBC 3.48 L, Hgb 10.9 L, Hct 31.8 L, MCV 91.4, MCH 31.3 H, MCHC 34.3, RDW 12.5, Plt Count 395, MPV 11.0 H, Neut % (Auto) 92.3 H, Lymph % (Auto) 2.9 L, [place] % (Auto) 4.0, Eos % (Auto) 0.2, Baso % (Auto) 0.2, Neut # (Auto) 17.1 H, Lymph # (Auto) 0.5 L, [place] # (Auto) 0.7, Eos # (Auto) 0.0, Baso # (Auto) 0.0, Total Counted 100, Neutrophils % (Manual) 94 H, Lymphocytes % (Manual) 3 L, Monocytes % (Manual) 3, Platelet Estimate Normal, RBC Morphology Normal, PT 12.6 H, INR 1.14 H, APTT 29.3, Sodium 136, Potassium 3.5, Chloride 100, Carbon Dioxide 36 H, Anion Gap 3.5 L, BUN 34 H, Creatinine 0.60 L, Estimated Creat Clear 45, Estimated GFR 128, Est GFR ( Amer) 155, Glucose 147 H, Calcium 9.1, Total Bilirubin 2.2 H, AST 30, ALT 19, Alkaline Phosphatase 113, Troponin I < 0.01, Total Protein 6.6, Albumin 3.9, Globulin 2.7, Albumin/Globulin Ratio 1.4, Lipase 71 10/15/24 18:34: Lactate 1.2, Blood Type A Positive, Antibody Screen Negative 10/15/24 22:46: Urine Color Naomie, Urine Appearance Clear, Urine pH 5.5, Ur Specific [place] >= 1.030, Urine Protein Negative, Urine Glucose (UA) Negative, Urine Ketones Negative, Urine Blood Moderate, Urine Nitrate Negative, Urine Bilirubin Negative, Urine Urobilinogen 0.2, Ur Leukocyte Esterase Negative, Urine RBC 20-50, Urine WBC Occasional, Ur Squamous Epith Cells Occasional, Urine Bacteria Trace, Urine Mucus 1+ 10/15/24 23:20: Troponin I 0.01 10/16/24 07:15: Troponin I 0.01 10/16/24 07:16: WBC 10.7 D, RBC 2.77 L, Hgb 8.8 L D, Hct 25.4 L, MCV 91.7, MCH 31.8 H, MCHC 34.6, RDW 12.6, Plt Count 287 D, MPV 10.8 H, Neut % (Auto) 85.8 H, Lymph % (Auto) 6.1 L, [place] % (Auto) 7.2, Eos % (Auto) 0.1, Baso % (Auto) 0.4, Neut # (Auto) 9.2 H, Lymph # (Auto) 0.7, [place] # (Auto) 0.8, Eos # (Auto) 0.0, Baso # (Auto) 0.0, APTT 29.8, Sodium 137, Potassium 3.3 L, Chloride 106, Carbon Dioxide 27, Anion Gap 7.3, BUN 29 H, Creatinine 0.60 L, Estimated Creat Clear 46, Estimated GFR 128, Est GFR ( Amer) 155, Glucose 102 H D, Lactate 0.7, Calcium 9.1, Magnesium 2.2, Total Bilirubin 1.7 H, AST 22 D, ALT 13 D, Alkaline Phosphatase 80, Total Protein 5.3 L, Albumin 3.0 L D, Globulin 2.3, Albumin/Globulin Ratio 1.3 10/16/24 11:00: POC Glucose 118 H I & O for Labs for Last 24 Hours: Intake & Output 10/13/24 10/14/24 10/15/24 10/16/24 23:59 23:59 23:59 23:59 Intake Total 817 / 817 Output Total 600 / 600 300 / 300 Balance -600 / -600 517 / 517 Weight 59.693 kg Constitutional: Present no acute distress, thin, chronically ill appearing and cooperative Head: Present atraumatic and normocephalic ENT: Present normal exam Comment:: NG in right nare Respiratory: Present normal respiratory effort; Absent rhonchi, wheezes or crackles Cardiac: Present Reg Rate and Rhythm GI: Present soft, tenderness (Mild in the lower abdomen) and normal bowel sounds; Absent distention Extremities: Present normal inspection and full ROM Skin: Present intact; Absent erythema Neuro: Present Grossly Intact, alert, awake, oriented x 3 and moves all extremities Assessment and Plan *Assessment and plan (1) Bowel obstruction: Status: Acute Qualifiers: Intestinal obstruction type: unspecified ileus Qualified Code(s): K56.7 - Ileus, unspecified Category: Medical Code(s): K56.609 - Unspecified intestinal obstruction, unspecified as to partial versus complete obstruction (2) Hematemesis: Status: Acute Qualifiers: Nausea presence: with nausea Qualified Code(s): K92.0 - Hematemesis Category: Medical Code(s): K92.0 - Hematemesis (3) UTI (urinary tract infection): Status: Acute Qualifiers: Urinary tract infection type: site unspecified Hematuria presence: without hematuria Qualified Code(s): N39.0 - Urinary tract infection, site not specified Category: Medical Code(s): N39.0 - Urinary tract infection, site not specified (4) Abdominal pain: Status: Resolved Qualifiers: Abdominal location: generalized Qualified Code(s): R10.84 - Generalized abdominal pain Category: Medical Code(s): R10.9 - Unspecified abdominal pain (5) Elevated white blood cell count: Status: Acute Qualifiers: Leukocytosis type: other Qualified Code(s): D72.828 - Other elevated white blood cell count Category: Medical Code(s): D72.829 - Elevated white blood cell count, unspecified (6) Pleural effusion: Status: Acute Category: Medical Code(s): J90 - Pleural effusion, not elsewhere classified (7) Gait disturbance: Status: Acute Category: Medical Code(s): R26.9 - Unspecified abnormalities of gait and mobility (8) Peripheral vascular disease: Status: Acute Category: Medical Code(s): I73.9 - Peripheral vascular disease, unspecified Plan 84-year-old male with history of bowel resection and 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 Admitted for further management. NG in place. Having small caliber stools overnight. Surgery consulted and assisting with care. Problems addressed as follows: Anastomotic stricture Bowel obstruction Hematemesis Suspected UTI - Surgery recommendations reviewed, recommend continuing conservative management. Will have reevaluation in the morning to consider repeat dilation of colonic anastomotic stricture. As he is having small caliber stools, continue with NG and bowel rest. - White count better this morning at 10.7, hemoglobin 8.8, platelets 287. Repeat CBC, CMP, magnesium ordered for the morning. No active signs of bleeding. -Potassium 3.3, magnesium 2.2. Replace per protocol. Kidney function stable BUN 29, creatinine 0.6. - White count improved from 18-13. Continue Zosyn 3.375 g every 6 hours for suspected UTI and GI treatment. Urine culture pending. Resume home regimen of finasteride 5 mg daily and tamsulosin 0.8 mg daily for BPH Continue home regimen of gabapentin 1200 mg nightly and 900 mg daily for neuropathy Full code N.p.o. Holding anticoagulation in the setting of anemia and possible GI blood loss
--- NOTE | 2024-10-16 17:31 | PC.NURSE ---
patient had a 15 beat run of v tach. notified
--- NOTE | 2024-10-16 18:21 | PC.NURSE ---
patient is a/ox4, remains on RA tolerating well. NG to R nare to low wall intermittent suction. NG is currently at 59. tolerating ice chips. treated pain per SEP. call light within reach. no further requests at this time.
[2024-10-16] MEDS: PANTOPRAZOLE 40MG VIAL 40 MG IV (20:05)
[2024-10-16] MEDS: SODIUM CHLORIDE 0.9% 10ML VIAL 10 ML IV (20:06)
[2024-10-17] VITALS: BP 144/62; PULSE 84; PULSE 90; RESP 16; TEMP 36.8; O2SAT 93
[2024-10-17] MEDS: PIPERACILLIN/TAZO 3.375 GM in 0.9 % SODIUM CHLORIDE 50 ML IV ×4 (00:30→17:52)
[2024-10-17] MEDS: MORPHINE 2MG/ML SYRINGE 2 MG IV ×3 (00:33→21:17)
[2024-10-17 04:00] VITALS: BP 149/77; PULSE 90; PULSE 91; RESP 16; TEMP 36.8; O2SAT 95; BMI 21.4
[2024-10-17 06:31] LABS: Basophils # 0.1 K/mm3 (0-0.2); Basophils % 0.5 % (0.1-2.0); Eosinophils # 0.1 K/mm3 (0.0-0.4); Eosinophils % 0.5 % (0.1-12.0); Hematocrit 27.1 % (42.0-52.0); Hemoglobin 9.1 g/dL (14.1-18.0); Lymphocytes # 0.7 K/mm3 (0.7-4.5); Lymphocytes % 7.5 % (10-50); Mean Corpuscular HGB Conc 33.6 g/dL (31.8-35.4); Mean Corpuscular Volume 92.2 fl (80-94); Mean Platelet Volume 10.9 fl (7.4-10.4); Monocytes # 0.8 K/mm3 (0.1-1.0); Monocytes % 8.4 % (1.7-9.3); Neutrophils # 7.5 K/mm3 (1.8-7.8); Neutrophils % 82.8 % (37.0-80.0); Platelet Count 312 K/mm3 (142-424); Red Blood Count 2.94 M/mm3 (4.60-6.20); Red Cell Distribution Width 12.5 % (11.5-17.5); White Blood Count 9.1 K/mm3 (4.8-10.8)
[2024-10-17 06:49] LABS: Alanine Aminotransferase 12 U/L (12-78); Albumin Level 2.9 g/dl (3.5-5.0); Albumin/Globulin Ratio 1.3 (1.1-1.8); Alkaline Phosphatase 91 U/L (38-126); Anion Gap 7.4 mEq/L (5-15); Aspartate Amino Transferase 24 U/L (17-59); Bilirubin,Total 1.3 mg/dl (0.2-1.3); Blood Urea Nitrogen 24 mg/dl (9-20); Calcium 9.2 mg/dl (8.4-10.2); Carbon Dioxide 26 mmol/L (22.0-30.0); Chloride 106 mmol/L (98-107); Creatinine Clearance Estimated 47 mL/min (50-200); Estimated Glomerular Filt Rate 128 ml/min (>60); GFR (African American) 155 ML/MIN (>60); Globulin 2.3 g/dL (1.3-3.2); Glucose 80 mg/dl (74-100); Magnesium 2.1 mg/dl (1.6-2.3); Potassium 3.4 mmoL/L (3.5-5.1); Sodium 136 mmol/L (136-145); Total Protein,Serum 5.2 g/dl (6.3-8.2)
--- NOTE | 2024-10-17 07:50 | EXP.ACUTE.PN ---
Subjective *Date: 10/17/24 *Time: 22:11 Interval history: Patient has had approximately 8 bowel movements since admission. They are all small caliber and loose. Minimal output from NG. NG clamped this morning on rounds. Stable on room air. Improved abdominal pain. No nausea or vomiting. Afebrile. Surgery evaluating today. Medical Exam Vital signs and Labs for Last 24 Hours: Vital Signs Temp Pulse Pulse Resp BP BP Pulse Ox 10/17/24 07:38 10/17/24 06:49 10/17/24 05:00 10/17/24 04:00 98.2 F 91 H 16 149/77 H 95 10/17/24 04:00 90 10/17/24 03:00 10/17/24 01:00 10/17/24 00:00 90 10/17/24 00:00 98.3 F 84 16 144/62 H 93 L 10/16/24 23:00 10/16/24 21:00 10/16/24 20:00 98.4 F 87 18 160/75 H 93 L 10/16/24 20:00 10/16/24 20:00 90 10/16/24 18:30 10/16/24 17:00 10/16/24 16:00 90 10/16/24 16:00 83 17 184/88 H 93 L 10/16/24 15:00 10/16/24 14:00 84 14 139/75 93 L 10/16/24 13:00 87 12 142/70 H 92 L 10/16/24 13:00 10/16/24 12:00 89 10/16/24 12:00 87 14 127/70 92 L 10/16/24 12:00 99.0 F 89 15 127/70 88 L 10/16/24 11:00 10/16/24 10:00 88 12 131/61 91 L 10/16/24 09:00 10/16/24 08:00 85 10/16/24 08:00 86 19 127/67 94 L 10/16/24 08:00 19 94 L 10/16/24 08:00 98.9 F 87 14 128/67 90 L O2 Del Method O2 Flow Rate 10/17/24 07:38 Room Air 10/17/24 06:49 Room Air 10/17/24 05:00 Room Air 10/17/24 04:00 10/17/24 04:00 10/17/24 03:00 Room Air 10/17/24 01:00 Room Air 10/17/24 00:00 10/17/24 00:00 Room Air 10/16/24 23:00 Room Air 10/16/24 21:00 Room Air 10/16/24 20:00 Room Air 10/16/24 20:00 Room Air 10/16/24 20:00 10/16/24 18:30 Room Air 10/16/24 17:00 Room Air 10/16/24 16:00 10/16/24 16:00 Room Air 10/16/24 15:00 Room Air 10/16/24 14:00 Room Air 10/16/24 13:00 Room Air 10/16/24 13:00 Room Air 10/16/24 12:00 10/16/24 12:00 Room Air 10/16/24 12:00 Nasal Cannula 2 10/16/24 11:00 Room Air 10/16/24 10:00 Nasal Cannula 2 10/16/24 09:00 Room Air 10/16/24 08:00 10/16/24 08:00 Room Air 10/16/24 08:00 Room Air 10/16/24 08:00 Nasal Cannula 2 Intake and Output 10/16/24 10/16/24 10/17/24 15:59 23:59 07:59 Intake Total 1656 / 2523 50 / 50 Output Total 300 / 850 550 / 850 175 / 175 Balance -300 / 1673 1106 / 1673 -125 / -125 Intake: Intake, Total IV Amount 1656 / 2523 50 / 50 0.9 % Sodium Chloride 1000ML 1, 1074 / 1841 000 ml @ 100 mls/hr IV .Q10H BR[facility]GETT Rx#:[id number] KCl 10mEq/100ml 100 ml @ 100 532 / 532 mls/hr IV Q1H [facility]GETT Rx#:[id number] Piperacillin/Tazo 3.375 gm In 0 50 / 50 .9 % Sodium Chloride 50 ml @ 100 mls/hr IV Q6H [facility]GETT Rx#: [id number] Piperacillin/Tazo 3.375 gm In 0 50 / 100 .9 % Sodium Chloride 50 ml @ 100 mls/hr IV Q8H [facility]GETT Rx#: [id number] Output: Output, Urine Amount 300 / 450 150 / 450 Output, Urine Amount (Catheter) 400 / 400 Straight 400 / 400 Output, Gastric Drainage Amount 175 / 175 Right Nare 175 / 175 Other: Number of Bowel Movements 1 1 1 Weight 62.051 kg Patient Weight 10/17/24 23:59 Weight 62.051 kg Laboratory Results - last 24 hr 10/16/24 07:15: Troponin I 0.01 10/16/24 07:16: APTT 29.8, Sodium 137, Potassium 3.3 L, Chloride 106, Carbon Dioxide 27, Anion Gap 7.3, BUN 29 H, Creatinine 0.60 L, Estimated Creat Clear 46, Estimated GFR 128, Est GFR ( Amer) 155, Glucose 102 H D, Lactate 0.7, Calcium 9.1, Magnesium 2.2, Total Bilirubin 1.7 H, AST 22 D, ALT 13 D, Alkaline Phosphatase 80, Total Protein 5.3 L, Albumin 3.0 L D, Globulin 2.3, Albumin/Globulin Ratio 1.3 10/16/24 11:00: POC Glucose 118 H 10/17/24 05:44: WBC 9.1, RBC 2.94 L, Hgb 9.1 L, Hct 27.1 L, MCV 92.2, MCH 31.0, MCHC 33.6, RDW 12.5, Plt Count 312, MPV 10.9 H, Neut % (Auto) 82.8 H, Lymph % (Auto) 7.5 L, [place] % (Auto) 8.4, Eos % (Auto) 0.5, Baso % (Auto) 0.5, Neut # (Auto) 7.5, Lymph # (Auto) 0.7, [place] # (Auto) 0.8, Eos # (Auto) 0.1, Baso # (Auto) 0.1, Sodium 136, Potassium 3.4 L, Chloride 106, Carbon Dioxide 26, Anion Gap 7.4, BUN 24 H, Creatinine 0.60 L, Estimated Creat Clear 47, Estimated GFR 128, Est GFR ( Amer) 155, Glucose 80 D, Calcium 9.2, Magnesium 2.1, Total Bilirubin 1.3, AST 24, ALT 12, Alkaline Phosphatase 91, Total Protein 5.2 L, Albumin 2.9 L, Globulin 2.3, Albumin/Globulin Ratio 1.3 I & O for Labs for Last 24 Hours: Intake & Output 10/14/24 10/15/24 10/16/24 10/17/24 23:59 23:59 23:59 23:59 Intake Total 2473 / 2523 50 / 50 Output Total 600 / 600 850 / 850 175 / 175 Balance -600 / -600 1623 / 1673 -125 / -125 Weight 59.693 kg 62.051 kg Microbiology Reports for the Last 24 Hours: Microbiology 10/15/24 19:40 Blood Blood Culture - Preliminary NO GROWTH AFTER 24 HOURS 10/15/24 19:35 Blood Blood Culture - Preliminary NO GROWTH AFTER 24 HOURS Constitutional: Present no acute distress, thin, chronically ill appearing and cooperative Head: Present atraumatic and normocephalic ENT: Present normal exam Comment:: NG in right nare Respiratory: Present normal respiratory effort; Absent rhonchi, wheezes or crackles Cardiac: Present Reg Rate and Rhythm GI: Present soft, tenderness (Mild in the lower abdomen) and normal bowel sounds; Absent distention Extremities: Present normal inspection and full ROM Skin: Present intact; Absent erythema Neuro: Present Grossly Intact, alert, awake, oriented x 3 and moves all extremities Assessment and Plan *Assessment and plan (1) Bowel obstruction: Status: Acute Qualifiers: Intestinal obstruction type: unspecified ileus Qualified Code(s): K56.7 - Ileus, unspecified Category: Medical Code(s): K56.609 - Unspecified intestinal obstruction, unspecified as to partial versus complete obstruction (2) Hematemesis: Status: Acute Qualifiers: Nausea presence: with nausea Qualified Code(s): K92.0 - Hematemesis Category: Medical Code(s): K92.0 - Hematemesis (3) UTI (urinary tract infection): Status: Acute Qualifiers: Urinary tract infection type: site unspecified Hematuria presence: without hematuria Qualified Code(s): N39.0 - Urinary tract infection, site not specified Category: Medical Code(s): N39.0 - Urinary tract infection, site not specified (4) Abdominal pain: Status: Resolved Qualifiers: Abdominal location: generalized Qualified Code(s): R10.84 - Generalized abdominal pain Category: Medical Code(s): R10.9 - Unspecified abdominal pain (5) Elevated white blood cell count: Status: Acute Qualifiers: Leukocytosis type: other Qualified Code(s): D72.828 - Other elevated white blood cell count Category: Medical Code(s): D72.829 - Elevated white blood cell count, unspecified (6) Pleural effusion: Status: Acute Category: Medical Code(s): J90 - Pleural effusion, not elsewhere classified (7) Gait disturbance: Status: Acute Category: Medical Code(s): R26.9 - Unspecified abnormalities of gait and mobility (8) Peripheral vascular disease: Status: Acute Category: Medical Code(s): I73.9 - Peripheral vascular disease, unspecified Plan 84-year-old male with history of bowel resection and 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 Admitted for further management. NG in place. Having small caliber stools overnight. Surgery consulted and assisting with care. Problems addressed as follows: Anastomotic stricture Bowel obstruction Hematemesis Suspected UTI -Discussed case with surgery, recommend removing NG. Will hold on advancing diet. Recommend serial enemas to clear sigmoid colon. Will proceed with flex sig tomorrow and consider dilation of rectosigmoid stricture -KUB obtained, per my review has bowel gas in the rectum. No maribeth obstruction. Does have distention of bowel proximal to his stricture however. -White count normal at 9.1, hemoglobin 9.1. Kidney function at baseline with BUN 24, creatinine 0.6. -Repeat CBC, CMP, magnesium ordered for the morning. -Continue Zosyn 3.375 g every 6 hours for suspected UTI and GI treatment. Urine culture pending. Continue home regimen of finasteride 5 mg daily and tamsulosin 0.8 mg daily for BPH Continue home regimen of gabapentin 1200 mg nightly and 900 mg daily for neuropathy Full code N.p.o. Holding anticoagulation in the setting of anemia and possible GI blood loss
[2024-10-17 08:00] VITALS: BP 163/78; PULSE 88; PULSE 92; RESP 16; TEMP 36.9; O2SAT 96
--- NOTE | 2024-10-17 08:14 | SW/DCPLANNER ---
Addendum entered by [facility] 10/19/24 10:44: I have updated Penelope Nash that pending patient can tolerate lunch he will be ready for discharge this afternoon. Penelope stated that patient has been approved SNF level of care to return today. I have updated MD. Addendum entered by [facility] 10/18/24 09:26: Updated patient information has been faxed to Penelope Nash. Addendum entered by [facility] 10/17/24 14:47: Penelope Nash confirmed precert has been started today. Addendum entered by [facility] 10/17/24 13:49: Per Penelope Nash patient will require a new precert prior to returning. I have faxed PT/OT evaluations and precert will be started today by Jacob Nash. Original Note: This patient currently resides at [facility] level of care. Updated patient information will be faxed to Penelope Nash. Discharge date is unknown at this time.
[2024-10-17] MEDS: FINASTERIDE 5MG TABLET 5 MG PO (08:25)
[2024-10-17] MEDS: PANTOPRAZOLE 40MG VIAL 40 MG IV ×2 (08:25→21:17)
[2024-10-17] MEDS: SODIUM CHLORIDE 0.9% 10ML VIAL 10 ML IV (08:25)
--- NOTE | 2024-10-17 11:09 | HMH.PTEV ---
Physical Therapy Evaluation Rehab PT IP Evaluation Start: 10/16/24 09:36 Freq: ONCE Status: Active Protocol: Document 10/17/24 10:41 JAYSHREE (Rec: 10/17/24 11:09 PHODONALD [id number]) Subjective/History History History 84-year-old patient that we are familiar with has come in after admission from the [facility]. Patient approximately 2 weeks ago had fallen and fractured his hip which has been repaired. Patient has developed generalized abdominal pain with distention for the last 2 days. Some diarrhea. And then had black emesis today. Patient's oral intake had decreased due to his abdominal pain. Patient has a significant history of colon cancer in the past with colon resection. Since then has had strictures that have had to be dilated last in chart was June 2024. Patient noted with an elevated white count and 18 found. Also noted for bladder wall thickening question diverticulitis of the bladder.. Patient and his last labs have noted to have urinary tract infection. Dx'd with SBO. He reports he was improving mobility at rehab prior to this adm. He lives with , 1-2 COLTEN the home, and he is generally indpedent with all ambulation without an AD prior to recent fall with hip fx now S/P repair. Subjective Subjective He reports no new c/o this am, generally feels weak due to inability to eat for several days, but otherwise feeling better. Agrees to mobility assessment. [facility] How much help from another person do you currently need... Turning from your back to your side None while in a flat bed without using bedrails? Moving from lying on back to sitting on A little the side of a flat bed without using bedrails? Moving to and from a bed to a chair ( None including a wheelchair)? Standing up from a chair using your arms None ? (e.g., wheelchair, bedside chair) Walking in hospital room? A little Climbing 3-5 steps with a railing? A little Mobility Score [address] [facility] Mobility Calculator Mobility 6 Walk 10 steps or more Rehab PT IP Eval Objective Appearance Patient Behavior Appropriate Patient Orientation Person,Place,Name Difficulty following instructions none Speech Pattern Clear Ambulation Patient Able to Ambulate Yes Ambulation Observation IP General Gait Pattern Observation Shuffling Step Ambulation Distance (feet) 25 Ambulation Assistive Device Rolling Walker Ambulation Ability Contact Guard/Hand Hold Balance Ability to Arise Able, uses arms to help Sitting Balance Steady, safe Standing Balance Steady, wide stance Dynamic Sitting Balance Ability Good Dynamic Standing Balance Ability Fair Transfers Bed Transfer Ability Contact Guard/Hand Hold Chair Transfer Ability Contact Guard/Hand Hold Sit to Stand Bed Transfer Ability Contact Guard/Hand Hold Sit to Stand Chair Transfer Ability Contact Guard/Hand Hold Rehab PT IP prob,goals,plan Problems Date of Evaluation: 10/17/24 PT IP Problems Bed Mobility,Transfers,Gait Rehab Potential Rehab Potential Good Plan PT Intervention Plan Bed Mobility,Transfers,Gait, Therapeutic Exercise PT Plan Frequency Daily Duration LOS Discharge Goals Bed Transfer Ability Supervision/Stand by Sit to Stand Chair Transfer Ability Supervision/Stand by Ambulation Assistive Device Rolling Walker Ambulation Distance (feet) 40 Discharge Plan PT Discharge Plan Pt is currently most appropriate to return to rehab placement once medically stable for d/c. He may be able to return home with family assist if he meets all therapy goals prior to d/c and has 24 hr assist available at home. Skilled acute therapy services are indicated to improve ambulation, improve strength, and improve transfers in order to aid pt return to [facility]. Eval Complexity Eval Charge Codes 87182 - High Complexity PHYSICIAN CERTIFICATION: I certify the specified therapy services for Francesco Adorno are required, authorized, and reviewed every 30 days.
[2024-10-17] MEDS: POTASSIUM CHLORIDE 20MEQ TAB 40 MEQ PO ×2 (11:39→16:46)
[2024-10-17] MEDS: LISINOPRIL 10MG TABLET 10 MG PO (11:39)
[2024-10-17] MEDS: AMLODIPINE 2.5MG TABLET 2.5 MG PO (11:39)
[2024-10-17 12:00] VITALS: BP 145/64; PULSE 80; RESP 16; TEMP 37.1; O2SAT 95
--- NOTE | 2024-10-17 13:47 | HMH.OTEV ---
OT Inpatient Evaluation Rehab OT IP Evaluation Start: 10/17/24 11:19 Freq: ONCE Status: Active Protocol: Document 10/17/24 13:42 [facility] (Rec: 10/17/24 13:47 [facility] [id number]) Rehab OT IP Assessment Subjective History Pt oriented x 3 on arrival. Pt agreeable to engage in therapy session. Pt's present and supportive. Pt was admitted on 10/15/24 due to possible GI bleed with abdominal pain. History and physical: This 84-year-old patient that we are familiar with has come in after admission from the [facility]. Patient approximately 2 weeks ago had fallen and fractured his hip which has been repaired. Patient has developed generalized abdominal pain with distention for the last 2 days. Some diarrhea. And then had black emesis today. Patient's oral intake had decreased due to his abdominal pain. Patient has a significant history of colon cancer in the past with colon resection. Since then has had strictures that have had to be dilated last in chart was June 2024. Patient noted with an elevated white count and 18 found. Also noted for bladder wall thickening question diverticulitis of the bladder.. Patient and his last labs have noted to have urinary tract infection. ER provider has spoken with general surgery. And will be evaluated tomorrow morning to be placed up on the floor. NG tube was placed with a fairly decent amount of output. After evaluating the patient myself reviewing the labs and imaging. Do agree that the patient needs to be admitted for further care. Due to his frailty's and past medical history will place the patient on stepdown. Potential that the patient may require surgery this weekend is anticipated. I have spoken with the patient with his in the room. The patient does want to be a full code. Also in review of past medical history to see seizure disorder, cerebrovascular event, hypertension. Patient is noted with open heart surgery with aortic valve replacement. Also on CT of abdomen also noted pleural effusion right side of lung posterior Subjective I have some pain. Prior to being in the hospital , pt was recovering at [facility] for short term rehab due to fx right hip . Prior to hip fx, pt did live at home with and son . Pt is normally completely independent with all ADLS and IADLs. Pt also still drives. He normally does not require any type of AE during functional transfers. However since hip surgery he has been using walker. Objective Patient Orientation Person,Place,Birthday Right Upper Extremity Gross ROM WFL Left Upper Extremity Gross ROM WFL Bed Mobility bed mobility-scooting,bed mobility - supine/sit Assist Level Minimal x 1 (25% assist) Transfer Training Sit/Stand/Step Transfer Assist Level Minimal x 1 (25% assist) Rehab OT IP prob,goals,plan Problems Date of Evaluation: 10/17/24 OT IP Problems Bed Mobility,Transfers,Balance ,Self care,Safety Rehab Potential Rehab Potential Good Equipment Needs Assistive Devices Rolling / Wheeled Walker Plan OT intervention Plan Bed Mobility,Transfers,Balance ,Self care,Safety,Therapeutic Exercise OT Plan Frequency Daily Duration LOS Discharge Goals Bed Mobility Ability Standby Assistance Sit to Stand Chair Transfer Ability Contact Guard/Hand Hold Chair Transfer Ability Contact Guard/Hand Hold Chair Transfer Technique Sit to/from Ambulatory Chair Transfer Assistive Devices Rolling Walker Feeding Ability Assist with Tray Set Up Lower Body Dressing Ability Moderate Assistance Upper Body Dressing Ability Minimal Assistance Bathing Ability Moderate Assistance Performing Toilet Hygiene Ability Moderate Assistance Overall Commode/Toilet Transfer Ability Contact Guard,Minimal Assistance Commode/Toilet Transfer Technique Sit to/from Ambulatory Commode/Toilet Transfer Assistive Grab Bars Devices Oral Care Assist Contact Guard,Minimal Assistance Decrease in Endurance Yes Discharge Plan OT Discharge Plan Pt will continue to be seen for OT services while at [facility]. Pt would benefit most from continued short term rehab at [facility] following discharge from hospital. Pt and family agreeable with this plan. Continued skilled therapy is important in order for patient to improve strength, safety, endurance, ADL independence, and functional transfers to reach PLOF. Eval Complexity Eval Charge Codes 11045 - Moderate Complexity PHYSICIAN CERTIFICATION: I certify the specified therapy services for Francesco Adorno are required, authorized, and reviewed every 30 days.
--- NOTE | 2024-10-17 14:23 | EXP.SURG.PN ---
Subjective Narrative: No nausea. Some bowel movements. Exam Data for Last 24 hours Vital signs and Labs for Last 24 Hours: Temp Pulse Resp BP Pulse Ox O2 Del Method O2 Flow Rate 98.7 F 80 16 145/64 H 95 Room Air 2 10/17/24 12:00 10/17/24 12:00 10/17/24 12:00 10/17/24 12:00 10/17/24 12:00 10/17/24 12:40 10/16/24 12:00 Laboratory Results - last 24 hr 10/17/24 05:44: WBC 9.1, RBC 2.94 L, Hgb 9.1 L, Hct 27.1 L, MCV 92.2, MCH 31.0, MCHC 33.6, RDW 12.5, Plt Count 312, MPV 10.9 H, Neut % (Auto) 82.8 H, Lymph % (Auto) 7.5 L, [place] % (Auto) 8.4, Eos % (Auto) 0.5, Baso % (Auto) 0.5, Neut # (Auto) 7.5, Lymph # (Auto) 0.7, [place] # (Auto) 0.8, Eos # (Auto) 0.1, Baso # (Auto) 0.1, Sodium 136, Potassium 3.4 L, Chloride 106, Carbon Dioxide 26, Anion Gap 7.4, BUN 24 H, Creatinine 0.60 L, Estimated Creat Clear 47, Estimated GFR 128, Est GFR ( Amer) 155, Glucose 80 D, Calcium 9.2, Magnesium 2.1, Total Bilirubin 1.3, AST 24, ALT 12, Alkaline Phosphatase 91, Total Protein 5.2 L, Albumin 2.9 L, Globulin 2.3, Albumin/Globulin Ratio 1.3 I & O for Last 24 hours: Intake & Output 10/15/24 10/16/24 10/17/24 10/18/24 11:59 11:59 11:59 11:59 Intake Total 817 / 817 1706 / 1706 Output Total 900 / 900 1225 / 1225 Balance -83 / -83 481 / 481 Weight 131 lb 9.6 oz 136 lb 12.8 oz Microbiology Reports for the Last 24 Hours: Microbiology 10/15/24 21:52 Anus CRE Surveillance Culture - Final 10/15/24 19:40 Blood Blood Culture - Preliminary NO GROWTH AFTER 24 HOURS 10/15/24 19:35 Blood Blood Culture - Preliminary NO GROWTH AFTER 24 HOURS *Routine Abdominal Exam Abdominal: Present distended Comments: Distended. Minimal tenderness. Progress Note: A&P Assessment and plan (1) Bowel obstruction: Status: Acute Assessment and plan: Enemas until clear. Acute abdominal series. Possible attempt at flex sig with dilatation once clear. Patient at risk of need for urgent diverting colostomy. (2) Hematemesis: Status: Acute (3) UTI (urinary tract infection): Status: Acute (4) Abdominal pain: Status: Resolved (5) Elevated white blood cell count: Status: Acute (6) Pleural effusion: Status: Acute (7) Gait disturbance: Status: Acute (8) Peripheral vascular disease: Status: Acute
--- NOTE | 2024-10-17 14:29 | XR_ITS ---
FINAL REPORT CLINICAL HISTORY: BOWEL OBSTRUCTION, unable to flush ng tube COMPARISON: 10/15/2024 FINDINGS: On the included chest x-ray, NG tube is not well-seen from the level of heart distally. The tip of the NG tube appears to be in the region of the GE junction onto the abdominal films included. There is gaseous distention of the colon. Gas is seen in the rectum. Bowel gas pattern is otherwise nonspecific. Surgical skin racquel are seen along the right hip. IMPRESSION: NG tube tip likely at the GE junction. Consider advancing. Colonic distention with air to the rectum. Bowel gas pattern otherwise nonspecific. Reviewed, Interpreted and Dictated by Karina Crowley MD Transcribed by Aliya Salcedo Authenticated and [facility]
[2024-10-17] MEDS: ACETAMINOPHEN 325MG TAB 650 MG PO (14:36)
[2024-10-17 16:00] VITALS: BP 152/68; PULSE 100; PULSE 89; RESP 18; TEMP 36.9; O2SAT 97
[2024-10-17] MEDS: SODIUM PHOS/BIPHOSPHATE FLEET 133ML ENEMA 133 ML RC ×3 (16:08→21:17)
--- NOTE | 2024-10-17 18:18 | PC.NURSE ---
PT IS RESTING IN BED. ALERT AND ORIENTED X4. PT TOLERATED SITTING UP IN THE CHAIR FOR A COUPLE OF HOURS THIS SHIFT. NG TUBE WAS REMOVED THIS AFTERNOON. STRAIGHT CATHED AT 0800 AND 1600 THIS SHIFT (2609=000 ML'S UOP, 3894=807 ML'S UOP). 2 SOFT/MODERATE BOWEL MOVEMENTS BEFORE ENEMAS. PT HAD 3 MORE LOOSE/BROWN BOWEL MOVEMENTS AFTER 2 ENEMAS. PT COMPLAINED OF SOME MILD ABDOMINAL CRAMPING AFTER THE 2ND ENEMA. NOTIFIED AND HE STATED IT WAS OKAY TO WAIT A COUPLE OF HOURS IN BETWEEN ENEMAS. PT'S LUNG SOUNDS DIMINISHED WITH SCATTERED WHEEZES. ABDOMEN SOFT/NON TENDER WITH HYPOACTIVE BOWEL SOUNDS. WILL CONTINUE TO MONITOR.
[2024-10-17 20:00] VITALS: BP 159/75; PULSE 80; PULSE 90; RESP 16; TEMP 36.9; O2SAT 96
[2024-10-17] MEDS: TAMSULOSIN 0.4MG CAPSULE 0.8 MG PO (21:17)
[2024-10-18] VITALS (20 sets, daily range): BP systolic 143–192; BP diastolic 68–92; PULSE 69–100; RESP 16–19; TEMP 36.2–37.1; O2SAT 94–99; BMI 21.0
[2024-10-18] MEDS: PIPERACILLIN/TAZO 3.375 GM in 0.9 % SODIUM CHLORIDE 50 ML IV ×4 (00:55→17:53)
[2024-10-18] MEDS: SODIUM PHOS/BIPHOSPHATE FLEET 133ML ENEMA 133 ML RC ×2 (03:14→06:20)
[2024-10-18] MEDS: MORPHINE 2MG/ML SYRINGE 2 MG IV ×3 (04:01→20:00)
[2024-10-18 06:35] LABS: Basophils # 0.1 K/mm3 (0-0.2); Basophils % 0.7 % (0.1-2.0); Eosinophils % 0.3 % (0.1-12.0); Hematocrit 29.5 % (42.0-52.0); Hemoglobin 9.9 g/dL (14.1-18.0); Lymphocytes # 0.6 K/mm3 (0.7-4.5); Mean Corpuscular HGB Conc 33.6 g/dL (31.8-35.4); Mean Corpuscular Hemoglobin 30.5 pg (27.0-31.2); Mean Corpuscular Volume 90.8 fl (80-94); Mean Platelet Volume 10.7 fl (7.4-10.4); Monocytes # 0.8 K/mm3 (0.1-1.0); Monocytes % 8.9 % (1.7-9.3); Neutrophils # 7.3 K/mm3 (1.8-7.8); Neutrophils % 82.8 % (37.0-80.0); Platelet Count 346 K/mm3 (142-424); Red Blood Count 3.25 M/mm3 (4.60-6.20); Red Cell Distribution Width 12.5 % (11.5-17.5); White Blood Count 8.9 K/mm3 (4.8-10.8)
[2024-10-18 06:42] LABS: Alanine Aminotransferase 12 U/L (12-78); Albumin Level 3.2 g/dl (3.5-5.0); Albumin/Globulin Ratio 1.4 (1.1-1.8); Alkaline Phosphatase 103 U/L (38-126); Anion Gap 10.9 mEq/L (5-15); Aspartate Amino Transferase 21 U/L (17-59); Bilirubin,Total 1.8 mg/dl (0.2-1.3); Blood Urea Nitrogen 21 mg/dl (9-20); Calcium 8.6 mg/dl (8.4-10.2); Carbon Dioxide 24 mmol/L (22.0-30.0); Chloride 107 mmol/L (98-107); Creatinine Clearance Estimated 46 mL/min (50-200); Estimated Glomerular Filt Rate 107 ml/min (>60); GFR (African American) 130 ML/MIN (>60); Globulin 2.3 g/dL (1.3-3.2); Glucose 78 mg/dl (74-100); Sodium 139 mmol/L (136-145); Total Protein,Serum 5.5 g/dl (6.3-8.2)
--- NOTE | 2024-10-18 06:53 | EXP.SURG.PN ---
Subjective Patient reports: no new complaints Narrative: Patient has had multiple enemas overnight with multiple bowel movements. Exam Data for Last 24 hours Vital signs and Labs for Last 24 Hours: Temp Pulse Resp BP Pulse Ox O2 Del Method O2 Flow Rate 98.7 F 96 H 17 151/91 H 94 L Room Air 2 10/18/24 04:00 10/18/24 04:00 10/18/24 04:00 10/18/24 04:00 10/18/24 04:00 10/18/24 05:00 10/16/24 12:00 Laboratory Results - last 24 hr 10/18/24 05:15: WBC 8.9, RBC 3.25 L, Hgb 9.9 L, Hct 29.5 L, MCV 90.8, MCH 30.5, MCHC 33.6, RDW 12.5, Plt Count 346, MPV 10.7 H, Neut % (Auto) 82.8 H, Lymph % (Auto) 7.0 L, [place] % (Auto) 8.9, Eos % (Auto) 0.3, Baso % (Auto) 0.7, Neut # (Auto) 7.3, Lymph # (Auto) 0.6 L, [place] # (Auto) 0.8, Eos # (Auto) 0.0, Baso # (Auto) 0.1 I & O for Last 24 hours: Intake & Output 10/15/24 10/16/24 10/17/24 10/18/24 11:59 11:59 11:59 11:59 Intake Total 817 / 817 1706 / 1706 305 / 305 Output Total 900 / 900 1225 / 1225 400 / 400 Balance -83 / -83 481 / 481 -95 / -95 Weight 131 lb 9.6 oz 136 lb 12.8 oz 134 lb 1.6 oz Microbiology Reports for the Last 24 Hours: Microbiology 10/15/24 19:40 Blood Blood Culture - Preliminary NO GROWTH AFTER 48 HOURS 10/15/24 19:35 Blood Blood Culture - Preliminary NO GROWTH AFTER 48 HOURS 10/15/24 21:52 Anus CRE Surveillance Culture - Final *Routine Abdominal Exam Abdominal: Present soft; Absent tenderness Progress Note: A&P Assessment and plan (1) Bowel obstruction: Status: Acute Assessment and plan: Excellent results with enemas. Plan sigmoidoscopy with possible dilatation later today. (2) Hematemesis: Status: Acute (3) UTI (urinary tract infection): Status: Acute (4) Abdominal pain: Status: Resolved (5) Elevated white blood cell count: Status: Acute (6) Pleural effusion: Status: Acute (7) Gait disturbance: Status: Acute (8) Peripheral vascular disease: Status: Acute
[2024-10-18 07:08] LABS: Potassium 2.9 mmoL/L (3.5-5.1)
[2024-10-18 08:04] LABS: Magnesium 2.1 mg/dl (1.6-2.3); Phosphorous 4.1 mg/dl (2.5-4.5)
[2024-10-18] MEDS: LISINOPRIL 10MG TABLET 10 MG PO (09:05)
[2024-10-18] MEDS: FINASTERIDE 5MG TABLET 5 MG PO (09:05)
[2024-10-18] MEDS: PANTOPRAZOLE 40MG VIAL 40 MG IV ×2 (09:07→20:02)
[2024-10-18] MEDS: SODIUM CHLORIDE 0.9% 10ML VIAL 10 ML IV ×2 (09:07→20:02)
[2024-10-18] MEDS: POTASSIUM CHLORIDE 20MEQ TAB 40 MEQ PO ×3 (09:10→17:53)
--- NOTE | 2024-10-18 14:34 | P.PCN_ITS ---
Procedure: Date: 10/18/24 Patient Date of :: 1940 Procedure Performed:: Flexible sigmoidoscopy with sequential pneumatic balloon dilatation ultimately to 20 mm using TTS balloon dilator Indications:: Patient is an 84-year-old male. He had fallen and broken his hip couple weeks ago and underwent surgical repair. He has been convalescing at [place]. Patient had developed some abdominal distention and ultimately vomiting. He is also had some diarrhea. Vomiting was consistent with black emesis. He had presented to the emergency department where he was evaluated and admitted for possible bowel obstruction. Surgical consultation with general surgery cross coverage was obtained. He was managed nonoperatively. Imaging was reviewed in this. Be consistent with partial large bowel obstruction. This would be consistent with his history. He had undergone low anterior resection by Dr. Henrik Polanco at [facility] in November 1997. In October 2021 he was admitted with possible bowel obstruction and had findings consistent with partial colon obstruction. This was managed nonoperatively. However, he has required multiple sigmoidoscopy with dilatation of recurrent benign stricture. * He underwent colonoscopy on 11/11/2021 which revealed severe anastomotic stricture which was dilated to 16.5 mm. He had undergone biopsies which were benign. * Flexible sigmoidoscopy on 01/03/22 with dilatation to 20 mm. * Sigmoidoscopy with dilatation was performed on 03/14/2022 with repeat dilatation to 20 mm. * He was dilated on 07/04/22 to 18 mm. * 10/10/2022 he was dilated to 20 mm. * Sigmoidoscopy on 10/23/2023 revealed essentially obstructed stricture with no visible luminal diameter. This was sequentially dilated initially beginning at 6 mm and ultimately to 13.5 mm * Sigmoidoscopy on 12/04/2023 revealed severe stricture creating high-grade partial distal obstruction which was dilated initially from 8 mm to ultimately 16.5. * Sigmoidoscopy on 01/15/2024 revealed rectal stricture approximately 11 to 12 cm from the anal verge. This was sequentially dilated ultimately to 18 mm. * Sigmoidoscopy on 07/08/2024 revealed benign-appearing anastomotic stricture at the proximal rectum which was ultimately dilated to 20 mm. Patient was administered enemas. Nasogastric tube was removed. He had numerous enemas administered, patient states 21 enemas, and had improvement in his symptoms. Plan was made for flexible sigmoidoscopy with attempted dilatation. . Performing Provider:: Christiano Rm MD Referring Provider:: . Sedation:: MAC sedation Procedure:: Patient history was obtained and appropriate physical examination was performed. Patient's medications and allergies were reviewed. Informed consent was obtained after explaining the benefits, alternatives, and risks of the procedure including, but not limited to, bleeding, perforation, missed lesions, and adverse reaction to anesthesia medications. Patient was transported to endoscopy procedure room. Patient was connected to monitoring devices. Throughout the procedure the patient's blood pressure, pulse, and oxygen saturations were monitored continuously. Patient identification and planned procedure were verified by the staff. Patient was positioned in lateral decubitus position. Digital anorectal exam was performed. Olympus endoscope was inserted via the anus. There was some semiformed stool within the rectum. Large-volume irrigation was performed. This could not be cleared. Digital examination was performed with extraction of rectal stool. The stricture was able to be palpated with aggressive digital exam. Olympus endoscope was reinserted and able to be advanced through the stricture. There was some exudate in the region of the stricture consistent with nonspecific exudative colitis. Unclear if this is ischemic or infectious. The colonoscope was advanced to the distal sigmoid colon at approximately 30 cm. High-volume irrigation was performed with minimal clearance of there is a large amount of opaque stool filling the colon. The 15 to 18 mm balloon dilator was inserted through the endoscope as the endoscope was withdrawn and the stricture was dilated sequentially from 15-16 0.5 to 18 mm. The balloon dilator was then exchanged for 18-20 and balloon dilatation was performed initially 18 mm to 19 mm, and then ultimately to 20 mm. This resulted in luminal diameter improvement. Sample of suction to stool was sent for C. difficile as given the nature of the appearance of the colon and clinical scenario this seemed to be a legitimate possibility. Endoscope was readvanced to the distal sigmoid colon additional high-volume irrigation was performed. Endoscope was withdrawn as suctioning was performed. Findings:: Very poor preparation Very foul-smelling stool Patchy exudative colitis in the region of the stricture Proximal rectal stricture as previously noted Recommendations:: Check stool. Treated for infectious etiology. Slowly advance diet Maintain bowel regimen Complications:: None immediately apparent Estimated blood obtained (mL): 0 Colonoscopy Component Colonoscopy Component Was a colonoscopy performed during today's procedure?: No
[2024-10-18 14:42] LABS: Adenovirus F 40/41, stool Not Detected (NotDetected); Astrovirus Not Detected (NotDetected); Campylobacter Not Detected (NotDetected); Clostridium Difficile A/B, PCR Not Detected (NotDetected); Cryptosporidium Not Detected (NotDetected); Cyclospora Cayetanesis Not Detected (NotDetected); Entamoeba histolytica Not Detected (NotDetected); Enteroaggregative E coli Not Detected (NotDetected); Enteropathogenic E coli Not Detected (NotDetected); Enterotoxigenic E coli Not Detected (NotDetected); Giardia lamblia Not Detected (NotDetected); Plesimonas Shigalloides, PCR Not Detected (NotDetected); Rotavirus A Not Detected (NotDetected); Salmonella, PCR Not Detected (NotDetected); Sapovirus Not Detected (NotDetected); Shiga-like toxin E coli Not Detected (NotDetected); Shigella Enterovasive E coli Not Detected (NotDetected); Vibrio Cholerae Not Detected (NotDetected); Vibrio, PCR Not Detected (NotDetected); Yersinia Entercolitica, PCR Not Detected (NotDetected)
--- NOTE | 2024-10-18 17:22 | PC.NURSE ---
Pt is currently resting in bed. Has been placed on full liquid diet this evening. Has been straight cathed x2 this shift. 500 ml and 250 ml. Pt has had multiple stools today. Has c/o discomfort to his hip x1 this MA. Call light within reach. Family at bedside.
--- NOTE | 2024-10-18 18:32 | PC.NURSE ---
notified of BP elevated after surgery and this evening. No new orders at this time.
[2024-10-18 18:46] LABS: Norovirus Detected (NotDetected)
[2024-10-18] MEDS: TAMSULOSIN 0.4MG CAPSULE 0.8 MG PO (20:02)
--- NOTE | 2024-10-18 20:17 | PC.NURSE ---
Late Entry (for 19:39): Patient requested to have methocarbamol (home medication was previously reconciled) restarted tonight so that he can take it for his back/right hip pain. The patient stated that he takes the medication twice a day as needed. Ruben FRANKLIN was paged at this time to obtain the new order.
[2024-10-18] MEDS: METHOCARBAMOL 500MG TABLET 500 MG PO (21:10)
--- NOTE | 2024-10-18 21:14 | P.PN_ITS ---
Subjective *Date: 10/29/24 *Time: 12:39 Interval history: Patient tolerated rectosigmoid dilatation with general surgery well today. Tolerating full liquid diet. Will advance as tolerated. Exam Data for Last 24 hours Vital signs and Labs for Last 24 Hours: Temp Pulse Resp BP Pulse Ox O2 Del Method O2 Flow Rate 97.4 F L 84 16 153/70 H 97 Room Air 5 10/18/24 19:40 10/18/24 19:40 10/18/24 19:40 10/18/24 19:40 10/18/24 19:40 10/18/24 19:40 10/18/24 14:00 Laboratory Results - last 24 hr 10/18/24 05:15: WBC 8.9, RBC 3.25 L, Hgb 9.9 L, Hct 29.5 L, MCV 90.8, MCH 30.5, MCHC 33.6, RDW 12.5, Plt Count 346, MPV 10.7 H, Neut % (Auto) 82.8 H, Lymph % (Auto) 7.0 L, [place] % (Auto) 8.9, Eos % (Auto) 0.3, Baso % (Auto) 0.7, Neut # (Auto) 7.3, Lymph # (Auto) 0.6 L, [place] # (Auto) 0.8, Eos # (Auto) 0.0, Baso # (Auto) 0.1, Sodium 139, Potassium 2.9 L*, Chloride 107, Carbon Dioxide 24, Anion Gap 10.9, BUN 21 H, Creatinine 0.70, Estimated Creat Clear 46, Estimated GFR 107, Est GFR ( Amer) 130, Glucose 78, Calcium 8.6, Phosphorus 4.1, Magnesium 2.1, Total Bilirubin 1.8 H, AST 21, ALT 12, Alkaline Phosphatase 103, Total Protein 5.5 L, Albumin 3.2 L D, Globulin 2.3, Albumin/Globulin Ratio 1.4 10/18/24 14:18: Stl Aeromonas (PCR) Not detected, Stl C. cayetanensis PCR Not detected, Stool Rotavirus (PCR) Not detected, Stl Adenov F 40/41 PCR Not detected, Stool Astrovirus (PCR) Not detected, Stool Campylobacter PCR Not detected, Stl C.difficile Tox PCR Not detected, Stool Cryptosporidium PCR Not detected, Stl E.coli Shiga Tox PCR Not detected, Stool E coli O157 PCR Not detected, Stl Enterotoxigenic E PCR Not detected, Stool EPEC (PCR) Not detected, Stool EAEC (PCR) Not detected, Stl E. histolytica PCR Not detected, Stool Giardia Lamblia PCR Not detected, Stool Salmonella PCR Not detected, Stool Sapovirus (PCR) Not detected, Stl P. shigelloides PCR Not detected, Stl Shigella/EIEC PCR Not detected, St Y.enterocolitica PCR Not detected, Stool Vibrio (PCR) Not detected, Stl Vibrio cholerae PCR Not detected, Stl Norovirus GI/GII PCR Detected A I & O for Last 24 hours: Intake & Output 10/15/24 10/16/24 10/17/24 10/18/24 23:59 23:59 23:59 23:59 Intake Total 2473 / 2523 50 / 125 785 / 785 Output Total 600 / 600 850 / 850 1075 / 1075 750 / 750 Balance -600 / -600 1623 / 1673 -1025 / -950 35 / 35 Weight 59.693 kg 62.051 kg 60.827 kg Microbiology Reports for the Last 24 Hours: Microbiology 10/15/24 22:46 Urine,Clean Catch Urine Culture - Final No growth. 10/15/24 19:40 Blood Blood Culture - Preliminary NO GROWTH AFTER 48 HOURS 10/15/24 19:35 Blood Blood Culture - Preliminary NO GROWTH AFTER 48 HOURS Constitutional Constitutional: no acute distress *Routine HEENT Exam Head: Present normocephalic Eye: Present EOMI and PERRL ENT: Present mucous membranes moist *Routine Neck Exam Neck: Present supple; Absent lymphadenopathy *Routine Respiratory Exam Respiratory: Present CTA bilaterally *Routine Cardiovascular Exam Cardiovascular: Present RRR *Routine Abdominal Exam Abdominal: Present soft and normoactive bowel sounds; Absent tenderness *Routine Extremities Exam Extremities: Absent cyanosis or clubbing Comments: Swelling, tenderness over right hip. *Routine Skin Exam Skin: Present warm; Absent rash *Routine Neurological Exam Neurological: Present alert and oriented X3 Assessment and Plan *Assessment and plan (1) Abdominal pain: Status: Resolved Qualifiers: Abdominal location: generalized Qualified Code(s): R10.84 - Generalized abdominal pain Category: Medical Code(s): R10.9 - Unspecified abdominal pain (2) Elevated white blood cell count: Status: Resolved Qualifiers: Leukocytosis type: other Qualified Code(s): D72.828 - Other elevated white blood cell count Category: Medical Code(s): D72.829 - Elevated white blood cell count, unspecified (3) Pleural effusion: Status: Resolved Category: Medical Code(s): J90 - Pleural effusion, not elsewhere classified (4) Peripheral vascular disease: Status: Acute Category: Medical Code(s): I73.9 - Peripheral vascular disease, unspecified Plan Francesco Adorno is a 84-year-old male with history of bowel resection and 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 #Anastomotic stricture #Bowel obstruction #Hematemesis #Norovirus ? Gradually improved with serial enemas, NG tube decompression, and Zosyn. Stool tested positive for norovirus. ? General Surgery consulted, s/p flexible sigmoidoscopy with dilation of rectosigmoid stricture today. ? Patient tolerated procedure well, continues to have bowel movements. Will advance diet overnight and anticipate discharge in the morning. ? Follow-up with general surgery within 2 weeks. #Recurrent falls #Right comminuted displaced intertrochanteric fracture ? S/p cephalomedullary nailing of right proximal femur 10/05/2024. ? Continue aspirin 81 mg twice daily for DVT prophylaxis for total of 28 days. ? PT/OT consulted, recommended SNF. Case management assisting with placement at [facility]. ? TSH, B12, folate levels normal. ? Follow-up with orthopedic surgery within 1 week. #Suspected BPH #Urinary retention, bladder outlet obstruction ? Chronic urinary retention being evaluated by urology. Does straight caths at home. ? Spence placed, follow-up with urology within 2 weeks. ? Continue tamsulosin to 0.8 mg, started finasteride 5 mg daily. 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 Patient reports iatrogenic within the heart during TAVR procedure that apparently could not be repaired with open heart surgery. 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 ? Aspirin, statin.
[2024-10-19] VITALS: BP 161/82; PULSE 83; PULSE 90; RESP 16; TEMP 37.2; O2SAT 96
[2024-10-19] MEDS: MORPHINE 2MG/ML SYRINGE 2 MG IV ×2 (03:08→11:45)
[2024-10-19 04:00] VITALS: BP 173/89; PULSE 80; PULSE 83; RESP 14; TEMP 36.7; O2SAT 98; BMI 20.3
--- NOTE | 2024-10-19 04:04 | PC.NURSE ---
Addendum entered by Martina Salcido RN 10/19/24 04:32: Contact/enteric precautions ongoing for Norovirus. Original Note: Patient is pleasantly alert and oriented. He was observed to have eyes closed, respirations unlabored on room air, and no apparent distress for the majority of the night. The patient was placed on 2 L of oxygen via nasal cannula around 03:00 during deep sleep stage due to decreasing oxygen saturations. During wakeful periods and/or light rest, oxygen saturations have remained within the upper 90s on room air. Upon auscultation of his lungs, clear sounds were heard throughout. Bowel sounds very active. Bundle branch block/junctional rhythm on telemetry; heart rate has been controlled this shift. He continues to have multiple, loose bowel movements. Abdomen soft and non-tender upon palpation. Patient was straight-cathed at 22:00 this shift; 100 mL was measured. Brief has also been utilized for incontinent unmeasured voids/defecation elimination needs this shift; documented accordingly. Patient has complained of back pain and right hip pain (ongoing from previous hip replacement procedure, dressing remains clean and intact) a couple times this shift; IV morphine was given twice per MAR and methocarbamol once per MAR for muscle spasm relief. Patient refused a bedtime snack; he remains on a full liquid diet at this time. Scheduled medications were administered as appropriately per MAR. Patient has been requiring standby assistance to x1 assistance + walker during transfers/ambulation. At this time, the patient is resting in bed without any further complaints. No new needs at this time. Bed alarm on. Call light within reach.
[2024-10-19] MEDS: PIPERACILLIN/TAZO 3.375 GM in 0.9 % SODIUM CHLORIDE 50 ML IV ×3 (05:15→11:45)
[2024-10-19 06:40] LABS: Alanine Aminotransferase 10 U/L (12-78); Albumin Level 2.9 g/dl (3.5-5.0); Albumin/Globulin Ratio 1.3 (1.1-1.8); Alkaline Phosphatase 97 U/L (38-126); Anion Gap 8.9 mEq/L (5-15); Aspartate Amino Transferase 20 U/L (17-59); Bilirubin,Total 1.4 mg/dl (0.2-1.3); Blood Urea Nitrogen 16 mg/dl (9-20); Calcium 8.4 mg/dl (8.4-10.2); Carbon Dioxide 25 mmol/L (22.0-30.0); Chloride 108 mmol/L (98-107); Creatinine Clearance Estimated 45 mL/min (50-200); Estimated Glomerular Filt Rate 128 ml/min (>60); GFR (African American) 155 ML/MIN (>60); Globulin 2.2 g/dL (1.3-3.2); Glucose 94 mg/dl (74-100); Sodium 139 mmol/L (136-145); Total Protein,Serum 5.1 g/dl (6.3-8.2)
[2024-10-19 07:19] LABS: Potassium 2.9 mmoL/L (3.5-5.1)
[2024-10-19 08:00] VITALS: BP 178/94; PULSE 87; PULSE 90; RESP 17; TEMP 36.8; O2SAT 95
--- NOTE | 2024-10-19 08:30 | EXP.SURG.PN ---
Subjective Patient reports: no new complaints Exam Data for Last 24 hours Vital signs and Labs for Last 24 Hours: Temp Pulse Resp BP Pulse Ox O2 Del Method O2 Flow Rate 98.3 F 87 17 178/94 H 95 Room Air 2 10/19/24 08:00 10/19/24 08:00 10/19/24 08:00 10/19/24 08:00 10/19/24 08:00 10/19/24 08:00 10/19/24 06:40 Laboratory Results - last 24 hr 10/18/24 14:18: Stl Aeromonas (PCR) Not detected, Stl C. cayetanensis PCR Not detected, Stool Rotavirus (PCR) Not detected, Stl Adenov F 40/41 PCR Not detected, Stool Astrovirus (PCR) Not detected, Stool Campylobacter PCR Not detected, Stl C.difficile Tox PCR Not detected, Stool Cryptosporidium PCR Not detected, Stl E.coli Shiga Tox PCR Not detected, Stool E coli O157 PCR Not detected, Stl Enterotoxigenic E PCR Not detected, Stool EPEC (PCR) Not detected, Stool EAEC (PCR) Not detected, Stl E. histolytica PCR Not detected, Stool Giardia Lamblia PCR Not detected, Stool Salmonella PCR Not detected, Stool Sapovirus (PCR) Not detected, Stl P. shigelloides PCR Not detected, Stl Shigella/EIEC PCR Not detected, St Y.enterocolitica PCR Not detected, Stool Vibrio (PCR) Not detected, Stl Vibrio cholerae PCR Not detected, Stl Norovirus GI/GII PCR Detected A 10/19/24 05:17: Sodium 139, Potassium 2.9 L*, Chloride 108 H, Carbon Dioxide 25, Anion Gap 8.9, BUN 16, Creatinine 0.60 L, Estimated Creat Clear 45, Estimated GFR 128, Est GFR ( Amer) 155, Glucose 94, Calcium 8.4, Total Bilirubin 1.4 H, AST 20, ALT 10 L, Alkaline Phosphatase 97, Total Protein 5.1 L, Albumin 2.9 L, Globulin 2.2, Albumin/Globulin Ratio 1.3 I & O for Last 24 hours: Intake & Output 10/16/24 10/17/24 10/18/24 10/19/24 11:59 11:59 11:59 11:59 Intake Total 817 / 817 1706 / 1706 305 / 305 530 / 530 Output Total 900 / 900 1225 / 1225 900 / 900 350 / 350 Balance -83 / -83 481 / 481 -595 / -595 180 / 180 Weight 131 lb 9.6 oz 136 lb 12.8 oz 134 lb 1.6 oz 129 lb 8 oz Microbiology Reports for the Last 24 Hours: Microbiology 10/15/24 22:46 Urine,Clean Catch Urine Culture - Final No growth. Constitutional Constitutional: no acute distress *Routine Respiratory Exam Respiratory: Absent respiratory distress *Routine Cardiovascular Exam Cardiovascular: Absent tachycardia *Routine Abdominal Exam Abdominal: Present soft Progress Note: A&P Assessment and plan (1) Colon stricture: Status: Acute Assessment and plan: Overall, doing fairly well status post dilation to 20 mm Management as per primary service Close outpatient follow-up (2) Elevated white blood cell count: Status: Resolved
[2024-10-19 08:41] LABS: Basophils % 0.4 % (0.1-2.0); Eosinophils # 0.1 K/mm3 (0.0-0.4); Eosinophils % 1.3 % (0.1-12.0); Hematocrit 27.7 % (42.0-52.0); Hemoglobin 9.3 g/dL (14.1-18.0); Lymphocytes # 0.7 K/mm3 (0.7-4.5); Lymphocytes % 10.3 % (10-50); Mean Corpuscular HGB Conc 33.6 g/dL (31.8-35.4); Mean Corpuscular Hemoglobin 30.7 pg (27.0-31.2); Mean Corpuscular Volume 91.4 fl (80-94); Mean Platelet Volume 10.7 fl (7.4-10.4); Monocytes # 0.8 K/mm3 (0.1-1.0); Monocytes % 11.5 % (1.7-9.3); Neutrophils # 5.3 K/mm3 (1.8-7.8); Neutrophils % 76.2 % (37.0-80.0); Platelet Count 352 K/mm3 (142-424); Red Blood Count 3.03 M/mm3 (4.60-6.20); White Blood Count 6.9 K/mm3 (4.8-10.8)
[2024-10-19] MEDS: POTASSIUM CHLORIDE 20MEQ TAB 40 MEQ PO ×2 (08:42→11:45)
[2024-10-19] MEDS: PANTOPRAZOLE 40MG VIAL 40 MG IV (08:42)
[2024-10-19] MEDS: FINASTERIDE 5MG TABLET 5 MG PO (08:42)
[2024-10-19] MEDS: LISINOPRIL 10MG TABLET 10 MG PO (08:42)
[2024-10-19] MEDS: METHOCARBAMOL 500MG TABLET 500 MG PO (08:43)
[2024-10-19] MEDS: AMLODIPINE 2.5MG TABLET 2.5 MG PO (08:44)
--- NOTE | 2024-10-19 08:47 | EXP.PHA.PN ---
Subjective *Date: 10/19/24 *Time: 08:47 Medical Exam Vital signs and Labs for Last 24 Hours: Vital Signs Temp Pulse Pulse Resp BP Pulse Ox O2 Del Method 10/19/24 08:00 98.3 F 87 17 178/94 H 95 Room Air 10/19/24 06:40 Nasal Cannula 10/19/24 05:00 Nasal Cannula 10/19/24 04:00 98.0 F 83 14 173/89 H 98 Room Air 10/19/24 04:00 80 10/19/24 03:00 Nasal Cannula 10/19/24 01:00 Room Air 10/19/24 00:00 90 10/19/24 00:00 98.9 F 83 16 161/82 H 96 Room Air 10/18/24 23:00 Room Air 10/18/24 21:00 Room Air 10/18/24 20:00 90 16 97 Room Air 10/18/24 20:00 90 10/18/24 19:40 97.4 F L 84 16 153/70 H 97 Room Air 10/18/24 19:10 87 19 154/77 H 97 Room Air 10/18/24 18:47 Room Air 10/18/24 18:10 98 H 17 191/92 H 94 L Room Air 10/18/24 17:10 88 18 176/89 H 98 Room Air 10/18/24 17:00 Room Air 10/18/24 16:40 88 18 163/80 H 96 Room Air 10/18/24 16:10 89 18 180/87 H 97 Room Air 10/18/24 15:55 89 17 175/92 H 97 Room Air 10/18/24 15:40 97.4 F L 93 H 18 192/88 H 94 L Room Air 10/18/24 15:25 86 18 176/87 H 94 L Room Air 10/18/24 15:10 87 17 167/87 H 99 Room Air 10/18/24 15:00 Room Air 10/18/24 14:50 85 16 156/78 H 98 Room Air 10/18/24 14:43 80 16 159/77 H 97 Room Air 10/18/24 14:33 97.1 F L 69 16 160/68 H 97 Room Air 10/18/24 14:00 Nasal Cannula 10/18/24 12:48 Room Air 10/18/24 12:00 100 H 10/18/24 12:00 98.4 F 94 H 16 143/70 H 96 Room Air 10/18/24 11:00 Room Air 10/18/24 09:00 Room Air O2 Flow Rate 10/19/24 08:00 10/19/24 06:40 2 10/19/24 05:00 2 10/19/24 04:00 10/19/24 04:00 10/19/24 03:00 2 10/19/24 01:00 10/19/24 00:00 10/19/24 00:00 10/18/24 23:00 10/18/24 21:00 10/18/24 20:00 10/18/24 20:00 10/18/24 19:40 10/18/24 19:10 10/18/24 18:47 10/18/24 18:10 10/18/24 17:10 10/18/24 17:00 10/18/24 16:40 10/18/24 16:10 10/18/24 15:55 10/18/24 15:40 10/18/24 15:25 10/18/24 15:10 10/18/24 15:00 10/18/24 14:50 10/18/24 14:43 10/18/24 14:33 10/18/24 14:00 5 10/18/24 12:48 10/18/24 12:00 10/18/24 12:00 10/18/24 11:00 10/18/24 09:00 Intake and Output 10/18/24 10/19/24 10/19/24 23:59 07:59 15:59 Intake Total 480 / 835 50 / 50 Output Total 350 / 850 0 / 0 Balance 130 / -15 50 / 50 Intake: Intake, Oral Amount 480 / 785 50 / 50 Output: Output, Urine Amount 250 / 750 0 / 0 Output, Urine Amount (Catheter) 100 / 100 Straight 100 / 100 Other: Number of Unmeasured Voids 1 Number of Bowel Movements 1 Weight 58.74 kg Patient Weight 10/19/24 23:59 Weight 58.74 kg Laboratory Results - last 24 hr 10/18/24 14:18: Stl Aeromonas (PCR) Not detected, Stl C. cayetanensis PCR Not detected, Stool Rotavirus (PCR) Not detected, Stl Adenov F 40/41 PCR Not detected, Stool Astrovirus (PCR) Not detected, Stool Campylobacter PCR Not detected, Stl C.difficile Tox PCR Not detected, Stool Cryptosporidium PCR Not detected, Stl E.coli Shiga Tox PCR Not detected, Stool E coli O157 PCR Not detected, Stl Enterotoxigenic E PCR Not detected, Stool EPEC (PCR) Not detected, Stool EAEC (PCR) Not detected, Stl E. histolytica PCR Not detected, Stool Giardia Lamblia PCR Not detected, Stool Salmonella PCR Not detected, Stool Sapovirus (PCR) Not detected, Stl P. shigelloides PCR Not detected, Stl Shigella/EIEC PCR Not detected, St Y.enterocolitica PCR Not detected, Stool Vibrio (PCR) Not detected, Stl Vibrio cholerae PCR Not detected, Stl Norovirus GI/GII PCR Detected A 10/19/24 05:17: WBC 6.9, RBC 3.03 L, Hgb 9.3 L, Hct 27.7 L, MCV 91.4, MCH 30.7, MCHC 33.6, RDW 13.0, Plt Count 352, MPV 10.7 H, Neut % (Auto) 76.2, Lymph % (Auto) 10.3, [place] % (Auto) 11.5 H, Eos % (Auto) 1.3, Baso % (Auto) 0.4, Neut # (Auto) 5.3, Lymph # (Auto) 0.7, [place] # (Auto) 0.8, Eos # (Auto) 0.1, Baso # (Auto) 0.0, Sodium 139, Potassium 2.9 L*, Chloride 108 H, Carbon Dioxide 25, Anion Gap 8.9, BUN 16, Creatinine 0.60 L, Estimated Creat Clear 45, Estimated GFR 128, Est GFR ( Amer) 155, Glucose 94, Calcium 8.4, Total Bilirubin 1.4 H, AST 20, ALT 10 L, Alkaline Phosphatase 97, Total Protein 5.1 L, Albumin 2.9 L, Globulin 2.2, Albumin/Globulin Ratio 1.3 I & O for Labs for Last 24 Hours: Intake & Output 10/16/24 10/17/24 10/18/24 10/19/24 23:59 23:59 23:59 23:59 Intake Total 2473 / 2523 50 / 125 785 / 835 50 / 50 Output Total 850 / 850 1075 / 1075 850 / 850 0 / 0 Balance 1623 / 1673 -1025 / -950 -65 / -15 50 / 50 Weight 62.051 kg 60.827 kg 58.74 kg Microbiology Reports for the Last 24 Hours: Microbiology 10/15/24 22:46 Urine,Clean Catch Urine Culture - Final No growth. The patient's infection will respond to the chosen ABx?: Yes (SMALL BOWEL OBSTRUCTION, BLOOD AND URINE CX NO GROWTH, AFEBRILE OVER 24 HRS) Is the patient receiving the right drug, dose, and route?: Yes Could a more targeted ABx be ordered?: No
--- NOTE | 2024-10-19 09:21 | PC.NURSE ---
Per MD Talley Spence catheter placed, 12F coude cath used. Pt tolerated well.
[2024-10-19 11:31] VITALS: BMI 20.3
[2024-10-19 12:00] VITALS: BP 164/85; PULSE 88; PULSE 90; RESP 16; TEMP 36.7; O2SAT 90
--- NOTE | 2024-10-19 12:34 | EXP.DC.SUM ---
General Admission date:: 10/15/24 HPI HPI HPI: Mr. Adorno is an 84-year-old male admitted from long term, where he was convalescing after hip fracture that was repaired approximately 2 weeks ago. 48 hours ago, he developed worsening lower abdominal pain and distention. He had an episode of diarrhea yesterday, and had many episodes of vomiting and black emesis. He was brought to the emergency room, where a CT scan was notable for large bowel obstruction likely at anastomotic stricture after previous colon resection. He has seen Dr. Rm approximately every 3 months for endoscopic dilation of stricture, and actually had a follow-up scheduled in the next few weeks. An NG tube was placed in the emergency room, and he is more comfortable today. from admission H&P This 84-year-old patient that we are familiar with has come in after admission from the long term. Patient approximately 2 weeks ago had fallen and fractured his hip which has been repaired. Patient has developed generalized abdominal pain with distention for the last 2 days. Some diarrhea. And then had black emesis today. Patient's oral intake had decreased due to his abdominal pain. Patient has a significant history of colon cancer in the past with colon resection. Since then has had strictures that have had to be dilated last in chart was June 2024. Patient noted with an elevated white count and 18 found. Also noted for bladder wall thickening question diverticulitis of the bladder.. Patient and his last labs have noted to have urinary tract infection. ER provider has spoken with general surgery. And will be evaluated tomorrow morning to be placed up on the floor. NG tube was placed with a fairly decent amount of output. After evaluating the patient myself reviewing the labs and imaging. Do agree that the patient needs to be admitted for further care. Due to his frailty's and past medical history will place the patient on stepdown. Potential that the patient may require surgery this weekend is anticipated. I have spoken with the patient with his in the room. The patient does want to be a full code. Also in review of past medical history to see seizure disorder, cerebrovascular event, hypertension. Patient is noted with open heart surgery with aortic valve replacement. 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 #Anastomotic stricture #Bowel obstruction #Hematemesis ? Gradually improved with serial enemas, NG tube decompression, and Zosyn. ? General Surgery consulted, s/p flexible sigmoidoscopy with dilation of rectosigmoid stricture. ? Patient tolerated procedure well, continues to have bowel movements. Tolerating oral intake without issues. ? Follow-up with general surgery within 2 weeks. #Recurrent falls #Right comminuted displaced intertrochanteric fracture ? S/p cephalomedullary nailing of right proximal femur 10/05/2024. ? Continue aspirin 81 mg twice daily for DVT prophylaxis for total of 28 days. ? PT/OT consulted, recommended SNF. [facility] graciously reaccepted patient for rehab. ? TSH, B12, folate levels normal. ? Follow-up with orthopedic surgery within 1 week. #Suspected BPH #Urinary retention, bladder outlet obstruction ? Chronic urinary retention being evaluated by urology. Does straight caths at home. ? Spence placed, follow-up with urology within 2 weeks. ? Continue tamsulosin to 0.8 mg, started finasteride 5 mg daily. 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 Patient reports iatrogenic within the heart during TAVR procedure that apparently could not be repaired with open heart surgery. 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 ? Aspirin, statin. Total time spent on discharge: 32 minutes on chart review, counseling, documentation, and direct care with patient. Exam Data for Last 24 hours Vital signs and Labs for Last 24 Hours: Temp Pulse Resp BP Pulse Ox O2 Del Method O2 Flow Rate 98.3 F 87 17 178/94 H 95 Room Air 2 10/19/24 08:00 10/19/24 08:00 10/19/24 08:00 10/19/24 08:00 10/19/24 08:00 10/19/24 09:00 10/19/24 06:40 Laboratory Results - last 24 hr 10/18/24 14:18: Stl Aeromonas (PCR) Not detected, Stl C. cayetanensis PCR Not detected, Stool Rotavirus (PCR) Not detected, Stl Adenov F 40/41 PCR Not detected, Stool Astrovirus (PCR) Not detected, Stool Campylobacter PCR Not detected, Stl C.difficile Tox PCR Not detected, Stool Cryptosporidium PCR Not detected, Stl E.coli Shiga Tox PCR Not detected, Stool E coli O157 PCR Not detected, Stl Enterotoxigenic E PCR Not detected, Stool EPEC (PCR) Not detected, Stool EAEC (PCR) Not detected, Stl E. histolytica PCR Not detected, Stool Giardia Lamblia PCR Not detected, Stool Salmonella PCR Not detected, Stool Sapovirus (PCR) Not detected, Stl P. shigelloides PCR Not detected, Stl Shigella/EIEC PCR Not detected, St Y.enterocolitica PCR Not detected, Stool Vibrio (PCR) Not detected, Stl Vibrio cholerae PCR Not detected, Stl Norovirus GI/GII PCR Detected A 10/19/24 05:17: WBC 6.9, RBC 3.03 L, Hgb 9.3 L, Hct 27.7 L, MCV 91.4, MCH 30.7, MCHC 33.6, RDW 13.0, Plt Count 352, MPV 10.7 H, Neut % (Auto) 76.2, Lymph % (Auto) 10.3, [place] % (Auto) 11.5 H, Eos % (Auto) 1.3, Baso % (Auto) 0.4, Neut # (Auto) 5.3, Lymph # (Auto) 0.7, [place] # (Auto) 0.8, Eos # (Auto) 0.1, Baso # (Auto) 0.0, Sodium 139, Potassium 2.9 L*, Chloride 108 H, Carbon Dioxide 25, Anion Gap 8.9, BUN 16, Creatinine 0.60 L, Estimated Creat Clear 45, Estimated GFR 128, Est GFR ( Amer) 155, Glucose 94, Calcium 8.4, Total Bilirubin 1.4 H, AST 20, ALT 10 L, Alkaline Phosphatase 97, Total Protein 5.1 L, Albumin 2.9 L, Globulin 2.2, Albumin/Globulin Ratio 1.3 I & O for Last 24 hours: Intake & Output 10/16/24 10/17/24 10/18/24 10/19/24 23:59 23:59 23:59 23:59 Intake Total 2473 / 2523 50 / 125 785 / 835 410 / 410 Output Total 850 / 850 1075 / 1075 850 / 850 0 / 0 Balance 1623 / 1673 -1025 / -950 -65 / -15 410 / 410 Weight 62.051 kg 60.827 kg 58.74 kg Constitutional Constitutional: no acute distress *Routine HEENT Exam Head: Present normocephalic Eye: Present EOMI and PERRL ENT: Present mucous membranes moist *Routine Neck Exam Neck: Present supple; Absent lymphadenopathy *Routine Respiratory Exam Respiratory: Present CTA bilaterally *Routine Cardiovascular Exam Cardiovascular: Present RRR *Routine Abdominal Exam Abdominal: Present soft and normoactive bowel sounds; Absent tenderness *Routine Extremities Exam Extremities: Absent cyanosis or clubbing Comments: Swelling, tenderness over right hip. *Routine Skin Exam Skin: Present warm; Absent rash *Routine Neurological Exam Neurological: Present alert and oriented X3 Results Data Completed and Pending Labs on day of discharge: Labs from last 24 hours 10/19/24 10/18/24 05:17 14:18 WBC 6.9 RBC 3.03 L Hgb 9.3 L Hct 27.7 L MCV 91.4 MCH 30.7 MCHC 33.6 RDW 13.0 Plt Count 352 MPV 10.7 H Neut % (Auto) 76.2 Lymph % (Auto) 10.3 [place] % (Auto) 11.5 H Eos % (Auto) 1.3 Baso % (Auto) 0.4 Neut # (Auto) 5.3 Lymph # (Auto) 0.7 [place] # (Auto) 0.8 Eos # (Auto) 0.1 Baso # (Auto) 0.0 Sodium 139 Potassium 2.9 L* Chloride 108 H Carbon Dioxide 25 Anion Gap 8.9 BUN 16 Creatinine 0.60 L Estimated Creat Clear 45 Estimated GFR 128 Est GFR ( Amer) 155 Glucose 94 Calcium 8.4 Total Bilirubin 1.4 H AST 20 ALT 10 L Alkaline Phosphatase 97 Total Protein 5.1 L Albumin 2.9 L Globulin 2.2 Albumin/Globulin Ratio 1.3 Stl Aeromonas (PCR) Not detected Stl C. cayetanensis PCR Not detected Stool Rotavirus (PCR) Not detected Stl Adenov F 40/41 PCR Not detected Stool Astrovirus (PCR) Not detected Stool Campylobacter PCR Not detected Stl C.difficile Tox PCR Not detected Stool Cryptosporidium PCR Not detected Stl E.coli Shiga Tox PCR Not detected Stool E coli O157 PCR Not detected Stl Enterotoxigenic E PCR Not detected Stool EPEC (PCR) Not detected Stool EAEC (PCR) Not detected Stl E. histolytica PCR Not detected Stool Giardia Lamblia PCR Not detected Stool Salmonella PCR Not detected Stool Sapovirus (PCR) Not detected Stl P. shigelloides PCR Not detected Stl Shigella/EIEC PCR Not detected St Y.enterocolitica PCR Not detected Stool Vibrio (PCR) Not detected Stl Vibrio cholerae PCR Not detected Stl Norovirus GI/GII PCR Detected A Preliminary micro results at discharge 10/15/24 19:40 Blood Culture - Preliminary Blood NO GROWTH AFTER 48 HOURS 10/15/24 19:35 Blood Culture - Preliminary Blood NO GROWTH AFTER 48 HOURS DS: Diagnosis Discharge Diagnosis (1) Colon stricture: Status: Acute Code(s): K56.699 - Other intestinal obstruction unspecified as to partial versus complete obstruction (2) Elevated white blood cell count: Status: Resolved Code(s): D72.829 - Elevated white blood cell count, unspecified Qualifiers: Leukocytosis type: other Qualified Code(s): D72.828 - Other elevated white blood cell count Meds Home Medications and Allergies Home Medications ?Medication ?Instructions ?Recorded ?Confirmed ?Type lisinopril 10 mg tablet 10 mg PO DAILY 02/20/20 10/15/24 History omeprazole magnesium 20 mg 20 mg PO DAILY 03/03/24 10/15/24 History tablet,delayed release duloxetine 60 mg capsule,delayed 60 mg PO BID #60 caps 08/26/24 10/15/24 Rx release aspirin 81 mg tablet,delayed 81 mg PO BID 26 days #52 tabs 10/07/24 10/15/24 Rx release atorvastatin 40 mg tablet 20 mg (1/2 x 40 mg) PO HS 30 days 10/07/24 10/15/24 Rx #15 tabs finasteride 5 mg tablet 5 mg PO DAILY 30 days #30 tabs 10/07/24 10/15/24 Rx methocarbamol 500 mg tablet 500 mg PO BIDP PRN back, hip pain 10/07/24 10/15/24 Rx #30 tabs polyethylene glycol 3350 17 17 g PO DAILY #510 grams 10/07/24 10/15/24 Rx gram/dose oral powder (Miralax) tamsulosin 0.4 mg capsule (Flomax) 0.8 mg (2 x 0.4 mg) PO DAILY 90 10/07/25 03/22/25 Rx days #90 caps amlodipine 2.5 mg tablet 5 mg (2 x 2.5 mg) PO DAILY 30 days 10/19/24 10/15/24 Rx #0 tabs gabapentin 300 mg capsule 600 mg (2 x 300 mg) PO DAILY 30 10/19/24 10/15/24 Rx days #0 caps gabapentin 300 mg capsule 600 mg (2 x 300 mg) PO HS 30 days 10/19/24 10/15/24 Rx #0 caps New Prescriptions to Start Prescriptions: Allergies Allergy/AdvReac Type Severity Reaction Status Date / Time No Known Allergies Allergy Verified 10/04/24 18:24 Discharge Plan Disposition Patient Disposition: Home, Self-Care Condition: Fair Discharge Order Discharge Orders: Discharge Order (Routine); Ordered 10/19/24 Ordered By: Cody Talley Follow up Plan Follow up with: Christiano Rm MD [Staff Physician] - 11/03/24 1:00 pm Prescriptions/Medication Reconciliation: Continued lisinopril 10 mg tablet 10 mg PO DAILY duloxetine 60 mg capsule,delayed release(DR/EC) 60 mg PO BID Qty: 60 5RF omeprazole magnesium 20 mg tablet,delayed release (DR/EC) 20 mg PO DAILY aspirin 81 mg Tablet,Delayed Release (Dr/Ec) 81 mg PO BID 26 Days Qty: 52 0RF atorvastatin 40 mg Tablet 20 mg PO HS 30 Days Qty: 15 0RF methocarbamol 500 mg Tablet 500 mg PO BIDP PRN (Reason: back, hip pain) Qty: 30 0RF finasteride 5 mg tablet 5 mg PO DAILY 30 Days Qty: 30 0RF polyethylene glycol 3350 [Miralax] 17 gram/dose powder 17 g PO DAILY Qty: 510 0RF tamsulosin [Flomax] 0.4 mg capsule 0.8 mg PO DAILY 90 Days Qty: 90 1RF Changed amlodipine 2.5 mg tablet 5 mg PO DAILY 30 Days Qty: 0 0RF gabapentin 300 mg capsule 600 mg PO HS 30 Days Qty: 0 0RF gabapentin 300 mg capsule 600 mg PO DAILY 30 Days Qty: 0 0RF Problem Reconciliation Problems Reviewed?: Yes Patient Discharge Instructions Patient Instructions: DI for Mechanical Bowel Obstruction, Low-Fiber/Low-Residue Diet, DI for Urinary Tract Infection (UTI), Catheter-Associated Urinary Tract Infection Print Language: Faroese Providers Primary Care Provider: Beltran Batista Admit Provider: Ravinder Davis Attending Provider: Ravinder Davis
[2024-10-19 16:00] VITALS: PULSE 80
--- OUTSIDE RECORDS SUMMARY | 2024-11-03 15:06 | XMS_ITS | Clinical Summary ---
Author Organization [facility] , [facility] Address [address] [place] [address] Phone Care Team Providers Care Varnishing Unit Operator Name Role Phone Andre DAILY, Ben Unavailable [phone] PERICO AWAN MD Primary Care Provider [phone] Reason for Referral Date Encounter Description Provider Reason for Referral 05/01/22 Follow Up Ben Powell MD Referral To Physician; Referral To Physician Reason for Visit and Chief Complaint The Chief Complaint is: lower back pain Problems Includes: Problems addressed during this encounter and other active Problems Current Visit Onset Date Resolved Date Provider Dionicio oliveira Status Lower Back Pain 09/23/2021 DOMINIQUE CADET PA-C Active Last Documented On 2 2:23PM ; [facility] Plan of Treatment Fall Risk Assessment: This patient has been identified as a fall risk. Balance/gait along with postural blood pressure, vision and home fall hazards have been assessed. Medications have been reviewed, and recommendations made with regard to contributing factors for future falls. Plan of care: Consideration of vitamin D supplementation along with balance and strength training with consideration for formal physical therapy has been discussed with the patient. today as he will identify the area of pain this is the most inferior portion of theleft sacroiliac joint. I very carefully was able to identify this, under local anesthetic, placed the needle in the inferior portion of the sacroiliac joint where it articulates with the sacrum, and put some local anesthetic and cortisone in there. After the injection, the patient stated that got the correct position, to see if the cortisone will stimulate this area of pseudoarthrosis and inflammation to heal. He may require 2 or 3 of these injections. trigger point injection performed. At the tender spot. Examination the patient, marking on the skin. The exact area of tenderness. Prep with alcohol. Sterile technique. Procedure risks reviewed. Placement of the needle through the skin, subcutaneous tissue, anesthesia only on the skin. Then with the needle, gently coming down to the soft tissues, and progressively needle until the clinical pain was identified. Gently probing with the needle, to find his clinical tender area. He was instructed identified, 2 cc of 1% lidocaine, and 40 mg of Depo Medrol were injected. He was gently withdrawn, Band-Aid was applied. Diagnostic sacroiliac joint injection was done today. right side Procedure was reviewed with the patient, and the risks. Alternatives reviewed. Skin was prepped with all call, sterile technique. Using a 22-gauge, by 3.5 Quincke spinal needle was used. Directing this towards the sacroiliac joint. Going into the interval between the posterior superior iliac spine, and the sacrum. Gently walking the needle down into the central, until I could palpate the needle popping into the sacroiliac joint. Thereafter injection of 40 mg of Depo Medrol, followed with 2 cc of 1% lidocaine. During the injection, it reproduces patient's clinical pain. After the injection, the local anesthetic relieving the patient's clinical pain. The patient tolerated the procedure quite well. Was discharged home stable. 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 - Last Documented On 05/01/2022 9:37AM ; [facility] Right sacral iliac joint arthropathy. - Last Documented On 05/01/2022 9:37AM ; [facility] Medical Equipment - Implanted Devices Includes: Current Devices No Medical Equipment Recorded Medications Includes: Medications discussed during this encounter and other current Medications Current Medications (continue as prescribed) Lidocaine 5% External Patch 10/30/2021 Provider: PERICO AWAN MD Diagnosis: Last Documented On 2 10:32AM By Aleida Haile ; [facility] Atorvastatin Calcium 40 MG Oral Tablet 10/16/2021 Pr ovider: PERICO AWAN MD Diagnosis: Last Documented On 2 10:32AM By Aleida Haile ; [facility] amLODIPine Besylate 5 MG Oral Tablet 09/27/2021 Prov ider: PERICO AWAN MD Diagnosis: Last Documented On 2 10:32AM By Aleida Haile ; [facility] Gabapentin 300 MG Oral Capsule 09/02/2021 Provider: BRUCE QUIJANO MD (N) Diagnosis: Last Documented On 2 2:24PM By Asia Toscano ; [facility] Lisinopril 10 MG Oral Tablet 07/27/2021 Provider: PERICO AWAN MD Diagnosis: Last Documented On 2 2:24PM By Asia Toscano ; [facility] Medications Administered Includes: Administered Medications from this encounter No Administered Medications Recorded Vital Signs Includes: Vital Signs from this encounter Vital Name 05/01/2022 09:07A Blood Pressure Sitting (mmHg) 150/86 Pulse Rate-Sitting (bpm) 69 Height (in) 68 Weight (lb) 133.2 Body Mass Index (kg/m2) 20.3 Body Surface Area (m2) 1.7 Note: rd Last Documented: On 05/01/2022 9:07AM ; [facility] Results Includes: Results discussed during this encounter No Results Recorded For Specified Dates History of Present Illness Includes: History of Present Illness from this encounter PENNY Adorno is an 81 year old male. - Allergy list reviewed - Problem list reviewed - Medication reconciliation performed - Medication list reviewed - Medication list reviewed - Yes, previous treatment. - History of Home Exercise - History of Injections 10/08/2021 Left SI Joint Inj 04/07/2022-Left SI infer. Trigger point inj ? History of Injections 10/08/2021 Left SI Joint Inj Patient presents today with complaints of ongoing left lower back and buttock pain. Patient reports having a previous SI joint fusion performed. Fusion performed by Dr. vickers Bone allograft-cornerstone procedure. This however failed to provide relief form. Still having complaints of pain in the left lower back and buttock area. inferior portion of the left sacroiliac joint. 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 Most recent had an SI joint block at the superior portion of the block this did not help.Patient has come to see us for further assessment. He wants to see if further surgery can help him with his left lower back and buttock symptoms. Surgery was done in summer of last year. Most recent diagnostic SI joint block secured him for almost 3 weeks he now has recurrence of symptoms.the patient has come back today stating that the injection on the left side has given at least 50% improvement, and he would like to have another injection in the left pseudoarthrosis site. He is also gets symptoms on the right side but not to the degree on the as on the left and wishes to try a right-sided injection. The patient is very hesitant to have anything further done, he said a previous colon resection for cancer many years ago he is undergoing dilation procedures for stricture. Right-sided symptoms, pain in the sacroiliac joint at Brandi's point, positive provocative testing in all 5 out of 5 maneuvers. Social History Description Last Updated Not a smoker 05/01/2022 Last Documented On 2 9:37AM ; [facility], [facility] Tobacco non-user 05/01/2022 Last Documented On 2 9:37AM ; [facility], [facility] No caffeine use 09/23/2021 Last Documented On 2 8:58AM ; [facility], [facility] No recent change in diet 09/23/2021 Last Documented On 2 8:58AM ; [facility], [facility] Not a current smoker. 09/23/2021 Last Documented On 2 8:58AM ; [facility] Not exercising regularly 09/23/2021 Last Documented On 2 8:58AM ; [facility] Not using alcohol 09/23/2021 Last Documented On 2 8:58AM ; [facility] Not using drugs 09/23/2021 Last Documented On 2 8:58AM ; [facility] Smoking Status Unknown Procedures and Surgical History Includes: Procedures from this encounter Procedures Code Diagnosis Performing Provider Service L ocation Service Date use of tobacco assessment performed 1000F Last Documented On 2 9:00AM ; [facility] patient screened for future fall risk 3288F Last Documented On 2 9:00AM ; [facility] patient screened for future fall risk: documentation of any fall with injury in past year 1100F Last Documented On 2 9:00AM ; [facility], [facility] follow-up visit in one month with PCP fo r elevated BP Last Documented On 2 9:00AM ; [facility], [facility] follow-up visit in one month Last Documented On 2 9:02AM ; [facility], [facility] referral to physician Last Documented On 2 9:00AM ; [facility], [facility] referral to physician Last Documented On 2 9:02AM ; [facility] an X-ray was performed 06/06/2021 Humza SI Joint @ [facility] ~06/06/2021 Pelvis @ [facility] [id number] Last Documented On 2 9:00AM ; [facility] a CT scan was performed 07/27 LT Hip WO @ [facility] ~03/04/2022 Pelvis/L SI Block @ [facility] [id number] Last Documented On 2 9:00AM ; [facility], [facility] Surgical History Last Updated History of back surgery 09/23/2021 Last Documented On 2 8:58AM ; [facility] History of heart surgery 09/23/2021 Last Documented On 2 8:58AM ; [facility] Medical History Includes: Medical History addressed during this encounter Description 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 05/01/2022 Last Documented On 2 9:37AM ; [facility], [facility] 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 05/01/2022 Last Documented On 2 9:37AM ; [facility], [facility] Past Surgical History: feeding tube ~mead d sx ~ 05/01/2022 Last Documented On 2 9:37AM ; [facility], [facility] Recent immunization for flu 04/26/2021 0 11/07/2021 Last Documented On 2 8:58AM ; [facility], [facility] Recent immunization for pneumococcal pne umonia 2019 11/07/2021 Last Documented On 2 8:58AM ; [facility], [facility] Family History Includes: Family History addressed during this encounter Description Last Updated No significant family history 09/23/2021 Last Documented On 2 8:58AM ; [facility], [facility] Review of Systems Includes: Review of Systems from this encounter Systemic: Not feeling tired, no recent weight loss, and no recent weight gain. Head: No headache and no sinus pain. Eyes: No vision problems, no Cataracts, no Glasses/Contacts, and no Glaucoma. Otolaryngeal: No hearing loss and no tinnitus. Cardiovascular: No chest pain or discomfort, no palpitations, no Hypertension, and no High Cholesterol. Pulmonary: No daytime asthma symptoms and no chronic cough. No wheezing. Gastrointestinal: No heartburn and no abdominal pain. No Indigestion, no Acid Reflux, no Peptic Ulcer, no GI Stomach Bleed, and no Ulcers. Endocrine: No hot flashes, no muscle weakness, no Diabetes, no Hypothyroid, and no Hyperthyroid. Hematologic: No easy bleeding, no tendency for easy bruising, and no Anemia. Musculoskeletal: No Arthritis. Lower back pain. No soft tissue swelling and no localized joint pain. Neurological: No dizziness, no convulsions, and no numbness. Psychological: No anxiety, no emotional lability, no depression, and no insomnia. Not crying for no reason. Skin: No dry skin. No Ulcers, no Scars, and no rash. Allergic and Immunologic: No complaint of seasonal allergic reaction. reviewed 05/01/2022 Mental Status Includes: Mental Status from this encounter Description No anxiety Functional Status Includes: Functional Status from this encounter No Functional Status Recorded Physical Exam Includes: Physical Exam from this encounter Allergies Includes: Active Allergies No Known Allergies Encounters Encounter Provider Location Date Check-In Time Check-Out Time Diagnosis Follow Up Ben Powell MD [facility] 2 8:52AM 9:21AM Insurance Includes: Active Insurance Policies Plan Name Member ID Group # Subscriber Relationship Effect breanne Dates 1 - Medicare Part B [facility] [id number] Francesco Robersonde Scott 2 - [employer] [id number] Francesco RobersonGarcia 07/27/2016 - Unknown Clinical Notes Includes: Clinical Notes from this encounter No Clinical Notes Recorded
--- OUTSIDE RECORDS SUMMARY | 2024-11-03 15:06 | XMS_ITS | Clinical Summary ---
Author Organization [facility] Address [address] [place] [address] Phone Care Team Providers Care Straddle Carrier Operator Name Role Phone Andre DAILY, Ben Unavailable [phone] PERICO AWAN MD Primary Care Provider [phone] Reason for Referral Date Encounter Description Provider Reason for Referral 02/13/22 Follow Up Ben Powell MD Referral To Physician; Referral To Physician Reason for Visit and Chief Complaint The Chief Complaint is: lower back pain Problems Includes: Problems addressed during this encounter and other active Problems Current Visit Onset Date Resolved Date Provider Dionicio oliveira Status Lower Back Pain 09/23/2021 DOMINIQUE CADET PA-C Active Last Documented On 2:23PM ; [facility] Plan of Treatment Fall Risk Assessment: This [...] therapy has been discussed with the patient. Diagnostic SI block #2 CT scan SI joints, workup for surgery. - Last Documented On 02/14/2022 8:42AM ; [facility] Fall Risk Assessment: This patient has been [...] therapy has been discussed with the patient. - Last Documented On 02/14/2022 8:42AM ; [facility] Pending Tests Order Diagnosis Results Due Ordering P roMetagenics Radiology - CT Scan Pelvis 02/27/22 Ben Powell MD Last Documented On 2 8:42AM ; [facility] Instructions to patient No intervention and counseli ng on cessation of tobacco use Last Documented On 2 8:42AM ; [facility] Lose weight Last Documented On 8:42AM ; [facility] Assessments Includes: Assessments from this encounter Findings 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 - Last Documented On 02/14/2022 8:42AM ; [facility] Pseudoarthrosis nonunion, left sacroiliac joint. - Last Documented On 02/14/2022 8:42AM ; [facility] Left inferior SI joint arthropathy. - Last Documented On 02/14/2022 8:42AM ; [facility] Instructions Includes: Instructions from this encounter Instructions to patient No intervention and counseli ng on cessation of tobacco use Last Documented On 2 8:42AM ; [facility] Lose weight Last Documented On 8:42AM ; [facility] Medical Equipment - Implanted Devices Includes: Current Devices No Medical Equipment Recorded Medications Includes: Medications discussed during this encounter and other current Medications Current Medications (continue as prescribed) Lidocaine 5% External Patch 10/30/2021 Provider: PERICO AWAN MD Diagnosis: Last Documented On 2 10:32AM By Aleida Haile ; [facility] Atorvastatin Calcium 40 MG Oral Tablet 10/16/2021 Pr ovider: PERICO AWAN MD Diagnosis: Last Documented On 2 10:32AM By Aleida Haile ; [facility] amLODIPine Besylate 5 MG Oral Tablet 09/27/2021 Prov ider: PERICO AWAN MD Diagnosis: Last Documented On 2 10:32AM By Aleida Haile ; [facility] Gabapentin 300 MG Oral Capsule 09/02/2021 Provider: BRUCE QUIJANO MD (N) Diagnosis: Last Documented On 2 2:24PM By Asia Toscano ; [facility] Lisinopril 10 MG Oral Tablet 07/27/2021 Provider: PERICO AWAN MD Diagnosis: Last Documented On 2 2:24PM By Asia Toscano ; [facility] Medications Administered Includes: Administered Medications from this encounter No Administered Medications Recorded Vital Signs Includes: Vital Signs from this encounter Vital Name 02/13/2022 09:48A Blood Pressure Sitting (mmHg) 159/136 Height (in) 68 Weight (lb) 136 Body Mass Index (kg/m2) 20.7 Body Surface Area (m2) 1.7 Note: dp Last Documented: On 02/13/2022 9:57AM ; [facility] Results Includes: Results discussed during this [...] performed. Fusion performed by Dr. vickers Bone allograft This however failed to provide relief form. [...] 3 weeks he now has recurrence of symptoms. Social History Description Last Updated Not a smoker 02/13/2022 Last Documented On 2 8:42AM ; [facility] Non-smoker 09/23/2021 Last Documented On 2 9:46AM ; [facility] No caffeine use 09/23/2021 Last Documented On 2 9:46AM ; [facility] No recent change in diet 09/23/2021 Last Documented On 2 9:46AM ; [facility] Not a current smoker. 09/23/2021 Last Documented On 2 9:46AM ; [facility] Not exercising regularly 09/23/2021 Last Documented On 2 9:46AM ; [facility] Not using alcohol 09/23/2021 Last Documented On 2 9:46AM ; [facility] Not using drugs 09/23/2021 Last Documented On 2 9:46AM ; [facility] Smoking Status Unknown Procedures and Surgical History Includes: Procedures from this encounter Procedures Code Diagnosis Performing Provider Service L ocation Service Date no intervention and counseling on cessation of tobacco use 4000F Last Documented On 2 8:42AM ; [facility] use of tobacco assessment performed 1000F Last Documented On 2 9:46AM ; [facility] patient screened for future fall risk 3288F Last Documented On 2 9:49AM ; [facility] follow-up visit in one month with PCP fo r elevated BP Last Documented On 2 9:49AM ; [facility] referral to physician Last Documented On 2 9:46AM ; [facility] referral to physician Last Documented On 2 9:49AM ; [facility] an X-ray was performed 06/06/2021 Humza SI Joint @ [facility] ~06/06/2021 Pelvis @ [facility] [id number] Last Documented On 2 9:46AM ; [facility] a CT scan was performed 08/14/2021 LT Hip WO @ [facility] [id number] Last Documented On 2 9:46AM ; [facility] Surgical History Last Updated History of back surgery 09/23/2021 Last Documented On 2 9:46AM ; [facility] History of heart surgery 09/23/2021 Last Documented On 2 9:46AM ; [facility] Medical History Includes: Medical History addressed during this encounter Description Last Updated History of History of Heart Attack / Str ranjan 05/01/2022 Last Documented On 2 9:46AM ; [facility] Recent immunization for flu 04/26/2021 0 11/07/2021 Last Documented On 2 9:46AM ; [facility] Recent immunization for pneumococcal pne umonia 2019 11/07/2021 Last Documented On 2 9:46AM ; [facility] Family History Includes: Family History addressed during this encounter Description Last Updated No significant family history 09/23/2021 Last Documented On 2 9:46AM ; [facility] Review of Systems Includes: Review of [...] No complaint of seasonal allergic reaction. reviewed 02.13.22 reviewed 11/07/2020 Mental Status Includes: Mental Status from this encounter Description No anxiety Functional Status Includes: Functional Status from this encounter No Functional Status Recorded Physical Exam Includes: Physical Exam from this encounter Immunizations Includes: Immunizations addressed during this encounter Vaccine Dose # Date Site Reaction(s) Status Source PCV (Pneumovax 23) 2 02/13/2022 Complete (Refused - Patient objection) [facility] Last Documented On 2 9:46AM ; [facility] Td 1 02/13/2022 Complete (Refused - Patient objection) [facility] Last Documented On 2 9:46AM ; [facility] Allergies Includes: Active Allergies No Known Allergies Encounters Encounter Provider Location Date Check-In Time Check-Out Time Diagnosis [facility] 9:50AM 10:36AM Insurance Includes: Active Insurance Policies Plan Name Member ID Group # Subscriber Relationship Effect breanne Dates 1 - Medicare Part B [facility] [id number] Francesco Adorno Self 2 - [employer] [id number] Francesco Chavez 07/27/2016 - Unknown Clinical Notes Includes: Clinical Notes from this encounter No Clinical Notes Recorded
--- OUTSIDE RECORDS SUMMARY | 2024-11-03 15:06 | XMS_ITS | Clinical Summary ---
Author Organization [facility] , [facility] Address [address], [place] [address] Phone Care Team Providers Care Meat Team Lead Name Role Phone Andre DAILY, Ben Unavailable [phone] PERICO AWAN MD Primary Care Provider [phone] Reason for Referral Date Encounter Description Provider Reason for Referral 04/07/22 Follow Up Ben Powell MD Referral To Physician Reason for Visit and Chief Complaint The Chief Complaint is: lower back pain Problems Includes: Problems addressed during this encounter and other active Problems Current Visit Onset Date Resolved Date Provider Dionicio oliveira Status Lower Back Pain 09/23/2021 DOMINIQUE CADET PA-C Active Last Documented On 2 2:23PM ; [facility] Plan of Treatment Fall Risk Assessment: [...] this is the most inferior portion of the sacroiliac joint. I very carefully was able [...] He was gently withdrawn, Band-Aid was applied. 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 - Last Documented On 04/08/2022 9:55AM ; [facility] Pseudoarthrosis nonunion, left sacroiliac joint. - Last Documented On 04/08/2022 9:55AM ; [facility] Left inferior SI joint arthropathy. - Last Documented On 04/08/2022 9:55AM ; [facility] Instructions Includes: Instructions from this encounter Instructions to patient Lose weight Last Documented On 2 9:54AM ; [facility] Medical Equipment - Implanted Devices Includes: Current Devices No Medical Equipment Recorded Medications Includes: Medications discussed during this encounter and other current Medications Current Medications (continue as prescribed) Lidocaine 5% External Patch 10/30/2021 Provider: PERICO AWAN MD Diagnosis: Last Documented On 2 10:32AM By Aleida Haile ; [facility] Atorvastatin Calcium 40 MG Oral Tablet 10/16/2021 Pr ovider: PERICO AWAN MD Diagnosis: Last Documented On 2 10:32AM By Aleida Haiel ; [facility], [facility] amLODIPine Besylate 5 MG Oral Tablet 09/27/2021 Prov ider: PERICO AWAN MD Diagnosis: Last Documented On 2 10:32AM By Aleida Haile ; [facility] Gabapentin 300 MG Oral Capsule 09/02/2021 Provider: BRUCE QUIJANO MD (N) Diagnosis: Last Documented On 2 2:24PM By Asia Toscano ; [facility] Lisinopril 10 MG Oral Tablet 07/27/2021 Provider: PERICO AWAN MD Diagnosis: Last Documented On 2 2:24PM By Asia Toscano ; [facility] Medications Administered Includes: Administered Medications from this encounter No Administered Medications Recorded Vital Signs Includes: Vital Signs from this encounter Vital Name 04/07/2022 10:25A Blood Pressure Sitting R 148/82 Pulse Rate-Sitting (bpm) 64 Height (in) 68 Weight (lb) 136 Body Mass Index (kg/m2) 20.7 Body Surface Area (m2) 1.7 Note: sjs Last Documented: On 04/07/2022 10:47A M ; [facility] Results Includes: Results discussed during this [...] weeks he now has recurrence of symptoms. The patient is very hesitant to have anything further done, he said a previous colon resection for cancer many years ago he is undergoing dilation procedures for stricture. Social History Description Last Updated Not a smoker 04/07/2022 Last Documented On 2 9:55AM ; [facility] Tobacco non-user 04/07/2022 Last Documented On 2 9:55AM ; [facility] No caffeine use 09/23/2021 Last Documented On 2 10:24AM ; [facility] No recent change in diet 09/23/2021 Last Documented On 2 10:24AM ; [facility] Not a current smoker. 09/23/2021 Last Documented On 2 10:24AM ; [facility] Not exercising regularly 09/23/2021 Last Documented On 2 10:24AM ; [facility] Not using alcohol 09/23/2021 Last Documented On 2 10:24AM ; [facility] Not using drugs 09/23/2021 Last Documented On 2 10:24AM ; [facility] Smoking Status Unknown Procedures and Surgical History Includes: Procedures from this encounter Procedures Code Diagnosis Performing Provider Service L ocation Service Date use of tobacco assessment performed 1000F Last Documented On 2 10:25AM ; [facility] patient screened for future fall risk 3288F Last Documented On 2 10:25AM ; [facility] patient screened for future fall risk: documentation of any fall with injury in past year 1100F Last Documented On 2 10:26AM ; [facility] follow-up visit in one month with PCP fo r elevated BP Last Documented On 2 10:25AM ; [facility] referral to physician Last Documented On 2 10:25AM ; [facility] an X-ray was performed 06/06/2021 Humza SI Joint @ [facility] ~06/06/2021 Pelvis @ [facility] [id number] Last Documented On 2 10:25AM ; [facility] a CT scan was performed 07/27 LT Hip WO @ [facility] ~03/04/2022 Pelvis/L SI Block @ [facility] [id number] Last Documented On 2 10:26AM ; [facility], [facility] Surgical History Last Updated History of back surgery 09/23/2021 Last Documented On 2 10:24AM ; [facility] History of heart surgery 09/23/2021 Last Documented On 2 10:24AM ; [facility] Medical History Includes: Medical History addressed during this encounter Description Last Updated History of History of Heart Attack / Str ranjan 05/01/2022 Last Documented On 2 10:24AM ; [facility] Recent immunization for flu 04/26/2021 0 11/07/2021 Last Documented On 2 10:24AM ; [facility] Recent immunization for pneumococcal pne onia 2019 11/07/2021 Last Documented On 2 10:24AM ; [facility] Family History Includes: Family History addressed during this encounter Description Last Updated No significant family history 09/23/2021 Last Documented On 2 10:24AM ; [facility] Review of Systems Includes: Review [...] No complaint of seasonal allergic reaction. reviewed 04/07/2022 Mental Status Includes: Mental Status from this encounter Description No anxiety Functional Status Includes: Functional Status from this encounter No Functional Status Recorded Physical Exam Includes: Physical Exam from this encounter Allergies Includes: Active Allergies No Known Allergies Encounters Encounter Provider Location Date Check-In Time Check-Out Time Diagnosis Follow Up Ben Powell MD [facility] 2 10:28AM 11:10AM Insurance Includes: Active Insurance Policies Plan Name Member ID Group # Subscriber Relationship Effect breanne Dates 1 - Medicare Part B [facility] [id number] Francesco Robersonde Scott 2 - [place] [facility] [employer] [place] [id number] Francesco Kyree Chavez 07/27/2016 - Unknown Clinical Notes Includes: Clinical Notes from this encounter No Clinical Notes Recorded
--- OUTSIDE RECORDS SUMMARY | 2024-11-03 15:06 | XMS_ITS | Continuity of Care Document ---
Author Name [facility] Organization [facility] Care Team Providers Care Truck Crane Operator Helper Name Role Phone [facility] Unavailable Unavailable Problems Combined list of problems from Department of [facility] and [facility] facilities. It does not include entries that were removed or entered in error. Problem Status Onset Date Problem Type Date of Resolution Comments Source Benign hypertension Active Condition [facility] BPH - Benign prostatic hypertrophy Active Condition [facility] Carcinoma of colon Active Condition N 2015 Entered By: MELISSA AGUILLON Comment: HX OF COLON RESECTION [facility] Hyperlipidemia Active Condition [place] [facility] Medications Combined list of outpatient medications from Department of [facility] and [facility] facilities.Medications provided include 1) outpatient medications from the last 15 months, and 2) patient-reported medications. Medication Details Route Status Patient Instructions Prescription Expires Prescription Number Last Dispense Date Ordering Provider Order Date Order Qty Source ATORVASTATI N CA 40MG TAB TAKE ONE-HALF TABLET BY MOUTH DAILY ORAL ACTIVE MIRACLE CARSON IN 2017 [place] [facility] FISH OIL 1000MG (500MG DHA/EPA) CAP,ORAL TAKE 2 CAPSULES BY MOUTH DAILY ORAL ACTIVE KAMARI AGUILLON 2015 [place] [facility] LISINOPRIL 20MG TAB TAKE ONE-HALF TABLET BY MOUTH TWICE A DAY ORAL ACTIVE MIRACLE CARSON IN C 2017 [place] [facility] METOPROLOL SUCCINATE 25MG TAB,SA TAKE ONE-HALF TABLET BY MOUTH DAILY ORAL ACTIVE MIRACLE CARSON IN 2017 [place] [facility] Immunizations Combined list of available immunizations from the Department of [facility] and [facility] facilities. 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 Social History Type Response Date Comment [facility] e Tobacco smoking status [facility] VA-TOBACCO NEVER USED [facility] of tobacco use V9 LIFETIME NON-USER OF TOBACCO 06/26/2017 [facility] History of tobacco use V9 LIFETIME NON-USER OF TOBACCO 06/05/2016 [facility] History of tobacco use V9 LIFETIME NON-USER OF TOBACCO 05/30/2015 [facility]
--- OUTSIDE RECORDS SUMMARY | 2024-11-03 20:56 | XMS_ITS | Continuity of Care Document ---
Author Name [facility] Organization [facility] Care Team Providers Care Movie Projectionist Name Role Phone [facility] Unavailable Unavailable Problems Combined list of problems from Department of [facility] and [facility] facilities. It does not include entries that were removed or entered in error. Problem Status Onset Date Problem Type Date of Resolution Comments Source Benign hypertension Active Condition [facility] BPH - Benign prostatic hypertrophy Active Condition [facility] Carcinoma of colon Active Condition N 2015 Entered By: MELISSA AGUILLON Comment: HX OF COLON RESECTION [facility] Hyperlipidemia Active Condition [place] [facility] Medications Combined list of outpatient medications from Department of [facility] and [facility] facilities.Medications provided include 1) outpatient medications from the last 15 months, and 2) patient-reported medications. Medication Details Route Status Patient Instructions Prescription Expires Prescription Number Last Dispense Date Ordering Provider Order Date Order Qty Source ATORVASTATI N CA 40MG TAB TAKE ONE-HALF TABLET BY MOUTH DAILY ORAL ACTIVE MIRACLE CARSON IN 2017 [place] [facility] FISH OIL 1000MG (500MG DHA/EPA) CAP,ORAL TAKE 2 CAPSULES BY MOUTH DAILY ORAL ACTIVE KAMARI AGUILLON 2015 [place] [facility] LISINOPRIL 20MG TAB TAKE ONE-HALF TABLET BY MOUTH TWICE A DAY ORAL ACTIVE MIRACLE CARSON IN C 2017 [place] [facility] METOPROLOL SUCCINATE 25MG TAB,SA TAKE ONE-HALF TABLET BY MOUTH DAILY ORAL ACTIVE MIRACLE CARSON IN 2017 [place] [facility] Immunizations Combined list of available immunizations from the Department of [facility] and [facility] facilities. Immunization Series Date Given Administered By Site Reaction Lot Number CVX Code Drug Ladle Puller Status Comments Source TDAP (HISTORICAL) 2013 115 complet ed [place] [facility] Social History Combined list of available smoking, tobacco, and other social history from Department of Defense and Veterans Affairs facilities. Social History Type Response Date Comment [facility] e Tobacco smoking status [facility]TO[facility]ACCO NEVER USED 07/15[facility] of tobacco use V9 LIFETIME NON-USER OF TOBACCO 06/26/2017 [facility] History of tobacco use V9 LIFETIME NON-USER OF TOBACCO 06/05/2016 [facility] History of tobacco use V9 LIFETIME NON-USER OF TOBACCO 05/30/2015 [facility]
--- OUTSIDE RECORDS SUMMARY | 2024-11-03 20:56 | XMS_ITS | Clinical Summary ---
Author Organization [facility], [facility] Address [address] [place] [address] Phone Care Team Providers Care Slabber Light Name Role Phone Andre DAILY, Ben Unavailable [phone] EMPERATRIZ DAILY, PERICO Alcaraz Primary Care Provider [phone] Reason for Visit and Chief Complaint The Chief Complaint is: lower back pain Problems Includes: Problems addressed during this encounter and other active Problems Current Visit Onset Date Resolved Date Provider Dionicio oliveira Status Lower Back Pain 09/23/2021 DOMINIQUE CADET PA-C Active Last Documented On 2:23PM ; [facility] Plan of Treatment I informed Mr. Adorno that I would not be performing a sacroiliac joint injection without fluoroscopy and not so close to the last one he had. He essentially got upset and left the office saying he will call us when he needs this. I think that is appropriate. He can follow-up with us on an as-needed basis - Last Documented On 05/26/2022 10:48AM ; [facility] Fall Risk Assessment: This patient has been [...] with the patient. - Last Documented On 05/26/2022 10:48AM ; [facility] Assessments Includes: Assessments from this encounter Findings This is a 82 year old male with status post left si joint pseudoarthrosis and chronic low back pain. - Last Documented On 05/26/2022 10:48AM ; [facility] Medical Equipment - Implanted Devices Includes: Current Devices No Medical Equipment Recorded Medications Includes: Medications discussed during this encounter and other current Medications Current Medications (continue as prescribed) Lidocaine 5% External Patch 10/30/2021 Provider: PERICO AWAN MD Diagnosis: Last Documented On 2 10:32AM By Aleida Haile ; [facility] Atorvastatin Calcium 40 MG Oral Tablet 10/16/2021 Pr ovider: PERICO AWAN MD Diagnosis: Last Documented On 2 10:32AM By Aleida Haile ; [facility] amLODIPine Besylate 5 MG Oral Tablet 09/27/2021 Prov ider: PERICO AWAN MD Diagnosis: Last Documented On 2 10:32AM By Aleida Haile ; [facility] Gabapentin 300 MG Oral Capsule 09/02/2021 Provider: BRUCE QUIJANO MD (N) Diagnosis: Last Documented On 2 2:24PM By Asia Toscano ; [facility] Lisinopril 10 MG Oral Tablet 07/27/2021 Provider: PERICO AWAN MD Diagnosis: Last Documented On 2 2:24PM By Asia Toscano ; [facility] Medications Administered Includes: Administered Medications from this encounter No Administered Medications Recorded Vital Signs Includes: Vital Signs from this encounter Vital Name 05/26/2022 09:33A Blood Pressure Sitting R 132/69 Pulse Rate-Sitting (bpm) 82 Height (in) 68 Weight (lb) 133 Body Mass Index (kg/m2) 20.2 Body Surface Area (m2) 1.7 Note: bb Last Documented: On 05/26/2022 9:33AM ; [facility] Results Includes: Results discussed during this encounter No Results Recorded For Specified Dates History of Present Illness Includes: History of Present Illness from this encounter HPI Francesco Adorno is an 82 year old male. - Allergy list reviewed - Problem list reviewed - Medication reconciliation performed - Medication list reviewed - Medication list reviewed - Previous history of new onset pain Injury is not work related or an automotive accident - Patient pain level from 1-10: 8 - Yes, previous treatment. - History of Home Exercise - History of Injections 10/08/2021 Left SI Joint Inj 04/07/2022-Left SI infer. Trigger point inj ? History of Injections 10/08/2021 Left SI Joint Inj This an 82-year-old man who is here following up with me as an in-house referral from Dr. Powell. This patient actually has a history of a left sacroiliac fusion that was performed by somebody other than Dr. Powell. This was done as a corner block type procedure with a bone graft put in under an open procedure. He states that this never improved his symptoms. It was done many years ago. 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 He last saw Dr. Powell on May 01 when he apparently performed some bilateral SI type injections not under fluoroscopy guidance. I asked him whether or not these sacroiliac joint injections helped him at all, and he said no, not 1 bit. Then he asked me if I would perform blind sacroiliac joint injections in the office today. He also inquired if I would place gel injections into his sacroiliac joints today. He denies any change in bowel or bladder. He really does not want to talk about any further symptoms other than getting an SI injection today. Social History Description Last Updated Tobacco non-user 05/01/2022 Last Documented On 2 9:26AM ; [facility] No caffeine use 09/23/2021 Last Documented On 2 9:26AM ; [facility] No recent change in diet 09/23/2021 Last Documented On 2 9:26AM ; [facility] Not a current smoker. 09/23/2021 Last Documented On 2 9:26AM ; [facility] Not exercising regularly 09/23/2021 Last Documented On 2 9:26AM ; [facility], [facility] Not using alcohol 09/23/2021 Last Documented On 2 9:26AM ; [facility] Not using drugs 09/23/2021 Last Documented On 2 9:26AM ; [facility], [facility] Smoking Status Unknown Procedures and Surgical History Includes: Procedures from this encounter Procedures Code Diagnosis Performing Provider Service L ocation Service Date use of tobacco assessment performed 1000F Last Documented On 2 9:26AM ; [facility] patient screened for future fall risk 3288F Last Documented On 2 9:26AM ; [facility] patient screened for future fall risk: documentation of any fall with injury in past year 1100F Last Documented On 2 9:26AM ; [facility], [facility] an X-ray was performed 06/06 Humza SI Joint @ [facility] ~06/06/2021 Pelvis @ [facility] ~05/26/2022 LSpine @ [id number] Last Documented On 2 10:47AM ; [facility] a CT scan was performed 07/27 LT Hip WO @ [facility] ~03/04/2022 Pelvis/L SI Block @ [id number] Last Documented On 2 9:26AM ; [facility], [facility] Surgical History Last Updated History of back surgery 09/23/2021 Last Documented On 2 9:26AM ; [facility], [facility] History of heart surgery 09/23/2021 Last Documented On 2 9:26AM ; [facility], [facility] Medical History Includes: Medical History addressed during this encounter Description Last Updated Past Surgical History: feeding tube ~mead d sx 05/26/2022 Last Documented On 2 10:48AM ; [facility], [facility] 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 05/01/2022 Last Documented On 2 9:26AM ; [facility], [facility] 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 05/01/2022 Last Documented On 2 9:26AM ; [facility], [facility] Recent immunization for flu 04/26/2021 0 11/07/2021 Last Documented On 2 9:26AM ; [facility], [facility] Recent immunization for pneumococcal pne umonia 2019 11/07/2021 Last Documented On 2 9:26AM ; [facility], [facility] Family History Includes: Family History addressed during this encounter Description Last Updated No significant family history 09/23/2021 Last Documented On 2 9:26AM ; [facility], [facility] Review of Systems Includes: Review of [...] No complaint of seasonal allergic reaction. reviewed 05/26/2022 Mental Status Includes: Mental Status from this encounter Description No anxiety Functional Status Includes: Functional Status from this encounter No Functional Status Recorded Physical Exam Includes: Physical Exam from this encounter Allergies Includes: Active Allergies No Known Allergies Encounters Encounter Provider Location Date Check-In Time Check-Out Time Diagnosis IN HOUSE REFERRAL Giovanni balderas MD [facility] 05/26/20 22 9:21AM 10:24AM Insurance Includes: Active Insurance Policies Plan Name Member ID Group # Subscriber Relationship Effect braenne Dates 1 - Medicare Part B [facility] [id number] Francesco Adorno Self 2 - [employer] [id number] Francesco Chavez 07/27/2016 - Unknown Clinical Notes Includes: Clinical Notes from this encounter No Clinical Notes Recorded
--- OUTSIDE RECORDS SUMMARY | 2024-11-03 20:56 | XMS_ITS | Clinical Summary ---
Author Organization [facility] Address [address] [place] [address] Phone Care Team Providers Care Extractor And Wringer Operator Name Role Phone Andre DAILY, Ben Unavailable [phone] PERICO AWAN MD Primary Care Provider [phone] Reason for Visit and Chief Complaint SI joint injection Problems Includes: Problems addressed during this encounter and other active Problems All Visits Onset Date Resolved Date Provider Condition S tatus Lower Back Pain 09/23/2021 DOMINIQUE CADET PA-C Active Last Documented On 2:23PM ; [facility] Plan of Treatment Diagnosis: Sacroiliac OA Procedure: Patient presents today for injection into the left SI joint under fluoroscopy. Patient was placed on the fluoroscopy table. Patient was examined determining the localized area of pain over the left SI joint. Once this was performed the skin was then prepped with ChloraPrep and skin anesthetized with 1% lidocaine. Fluoroscopic guidance was used to place the 22-gauge needle into the sacroiliac joint at the most painful area. At that point a small amount of contrast was injected to confirm placement within the joint. And once confirmed an injection of bupivacaine and 40 mg of Kenalog was injected. Patient tolerated the procedure well. Sterile dressing was placed over the puncture site. And patient left the procedure room in stable condition. Follow-up evaluation approximately 10 minutes postprocedure revealing- unable to get the % of pain relief from the patient. - Last Documented On 03/04/2022 12:27PM ; [facility] Pending Tests Order Diagnosis Results Due Ordering P rovider Radiology - CT Scan Pelvis 02/27/22 Ben Powell MD Last Documented On 2 8:42AM ; [facility] Assessments Includes: Assessments from this encounter No Assessments Recorded Medical Equipment - Implanted Devices Includes: Current Devices No Medical Equipment Recorded Medications Includes: Medications discussed during this encounter and other current Medications Current Medications (continue as prescribed) Lidocaine 5% External Patch 10/30/2021 Provider: PERICO AWAN MD Diagnosis: Last Documented On 2 10:32AM By Aleida Haile ; [facility] Atorvastatin Calcium 40 MG Oral Tablet 10/16/2021 Pr ovider: PERICO AWAN MD Diagnosis: Last Documented On 2 10:32AM By Aleida Haile ; [facility] amLODIPine Besylate 5 MG Oral Tablet 09/27/2021 Prov ider: PERICO AWAN MD Diagnosis: Last Documented On 2 10:32AM By Aleida Haile ; [facility] Gabapentin 300 MG Oral Capsule 09/02/2021 Provider: BRUCE QUIJANO MD (N) Diagnosis: Last Documented On 2 2:24PM By Asia Toscano ; [facility] Lisinopril 10 MG Oral Tablet 07/27/2021 Provider: PERICO AWAN MD Diagnosis: Last Documented On 2 2:24PM By Asia Toscano ; [facility] Medications Administered Includes: Administered Medications from this encounter No Administered Medications Recorded Results Includes: Results discussed during this encounter No Results Recorded For Specified Dates History of Present Illness Includes: History of Present Illness from this encounter No History of Present Illness Recorded Social History No Social History Recorded - Smoking Status Unknown Medical History Includes: Medical History addressed during this encounter No Medical History Recorded Family History Includes: Family History addressed during this encounter No Family History Recorded Review of Systems Includes: Review of Systems from this encounter No Review of Systems Recorded Mental Status Includes: Mental Status from this encounter No Mental Status Recorded Functional Status Includes: Functional Status from this encounter No Functional Status Recorded Physical Exam Includes: Physical Exam from this encounter No Physical Exam Recorded Allergies Includes: Active Allergies No Known Allergies Encounters Encounter Provider Location Date Check-In Time Check-Out Time Diagnosis SI joint injection Ben Powell MD [facility] 03/04/20 22 9:44AM 10:14AM Insurance Includes: Active Insurance Policies Plan Name Member ID Group # Subscriber Relationship Effect breanne Dates 1 - Medicare Part B [facility] [id number] Francesco Adorno Self 2 - [employer] [id number] Francesco Chavez 07/27/2016 - Unknown Clinical Notes Includes: Clinical Notes from this encounter No Clinical Notes Recorded
--- OUTSIDE RECORDS SUMMARY | 2024-11-03 20:56 | XMS_ITS | Clinical Summary ---
Author Organization [facility] Address [address] [place] [address] Phone Care Team Providers Care Cone Examiner Name Role Phone Andre DAILY, Ben Unavailable [...] PA-C Active Last Documented On 2:23PM ; [facility] Plan of Treatment Fall Risk [...] - Last Documented On 02/14/2022 8:42AM ; [facility] Fall Risk Assessment: This patient [...] - Last Documented On 02/14/2022 8:42AM ; [facility] Pending Tests Order Diagnosis Results Due Ordering P roStudyplaces Radiology - CT Scan Pelvis 02/27/22 Ben Powell MD Last Documented On 2 8:42AM ; [facility] Instructions to patient No intervention and counseli ng on cessation of tobacco use Last Documented On 2 8:42AM ; [facility] Lose weight Last Documented On 8:42AM ; [facility] Assessments Includes: Assessments from this encounter Findings 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 - Last Documented On 02/14/2022 8:42AM ; [facility] Pseudoarthrosis nonunion, left sacroiliac joint. - Last Documented On 02/14/2022 8:42AM ; [facility] Left inferior SI joint arthropathy. - Last Documented On 02/14/2022 8:42AM ; [facility] Instructions Includes: Instructions from this encounter Instructions to patient No intervention and counseli ng on cessation of tobacco use Last Documented On 2 8:42AM ; [facility] Lose weight Last Documented On 8:42AM ; [facility] Medical Equipment - Implanted Devices Includes: Current Devices No Medical Equipment Recorded Medications Includes: Medications discussed during this encounter and other current Medications Current Medications (continue as prescribed) Lidocaine 5% External Patch 10/30/2021 Provider: PERICO AWAN MD Diagnosis: Last Documented On 2 10:32AM By Aleida Haile ; [facility] Atorvastatin Calcium 40 MG Oral Tablet 10/16/2021 Pr ovider: PERICO AWAN MD Diagnosis: Last Documented On 2 10:32AM By Aleida Haile ; [facility] amLODIPine Besylate 5 MG Oral Tablet 09/27/2021 Prov ider: PERICO AWAN MD Diagnosis: Last Documented On 2 10:32AM By Aleida Haile ; [facility] Gabapentin 300 MG Oral Capsule 09/02/2021 Provider: BRUCE QUIJANO MD (N) Diagnosis: Last Documented On 2 2:24PM By Asia Toscano ; [facility] Lisinopril 10 MG Oral Tablet 07/27/2021 Provider: PERICO AWAN MD Diagnosis: Last Documented On 2 2:24PM By Asia Toscano ; [facility] Medications Administered Includes: Administered Medications from this encounter No Administered Medications Recorded Vital Signs Includes: Vital Signs from this encounter Vital Name 02/13/2022 09:48A Blood Pressure Sitting (mmHg) 159/136 Height (in) 68 Weight (lb) 136 Body Mass Index (kg/m2) 20.7 Body Surface Area (m2) 1.7 Note: dp Last Documented: On 02/13/2022 9:57AM ; [facility] Results Includes: Results discussed during this encounter [...] Documented On 2 8:42AM ; [facility] Non-smoker 09/23/2021 Last Documented On 2 9:46AM ; [facility] No caffeine use 09/23/2021 Last Documented On 2 9:46AM ; [facility] No recent change in diet 09/23/2021 Last Documented On 2 9:46AM ; [facility] Not a current smoker. 09/23/2021 Last Documented On 2 9:46AM ; [facility] Not exercising regularly 09/23/2021 Last Documented On 2 9:46AM ; [facility] Not using alcohol 09/23/2021 Last Documented On 2 9:46AM ; [facility] Not using drugs 09/23/2021 Last Documented On 2 9:46AM ; [facility] Smoking Status Unknown Procedures and Surgical History Includes: Procedures from this encounter Procedures Code Diagnosis Performing Provider Service L ocation Service Date no intervention and counseling on cessation of tobacco use 4000F Last Documented On 2 8:42AM ; [facility] use of tobacco assessment performed 1000F Last Documented On 2 9:46AM ; [facility] patient screened for future fall risk 3288F Last Documented On 2 9:49AM ; [facility] follow-up visit in one month with PCP fo r elevated BP Last Documented On 2 9:49AM ; [facility] referral to physician Last Documented On 2 9:46AM ; [facility] referral to physician Last Documented On 2 9:49AM ; [facility] an X-ray was performed 06/06/2021 Humza SI Joint @ [facility] ~06/06/2021 Pelvis @ [facility] [id number] Last Documented On 2 9:46AM ; [facility] a CT scan was performed 08/14/2021 LT Hip WO @ [facility] [id number] Last Documented On 2 9:46AM ; [facility] Surgical History Last Updated History of back surgery 09/23/2021 Last Documented On 2 9:46AM ; [facility] History of heart surgery 09/23/2021 Last Documented On 2 9:46AM ; [facility] Medical History Includes: Medical History addressed during this encounter Description Last Updated History of History of Heart Attack / Str ranjan 05/01/2022 Last Documented On 2 9:46AM ; [facility] Recent immunization for flu 04/26/2021 0 11/07/2021 Last Documented On 2 9:46AM ; [facility] Recent immunization for pneumococcal pne umonia 2019 11/07/2021 Last Documented On 2 9:46AM ; [facility] Family History Includes: Family History addressed during this encounter Description Last Updated No significant family history 09/23/2021 Last Documented On 2 9:46AM ; [facility] Review of Systems Includes: Review of Systems [...] 2 02/13/2022 Complete (Refused - Patient objection) [facility] Last Documented On 2 9:46AM ; [facility] Td 1 02/13/2022 Complete (Refused - Patient objection) [facility] Last Documented On 2 9:46AM ; [facility] Allergies Includes: Active Allergies No Known Allergies Encounters Encounter Provider Location Date Check-In Time Check-Out Time Diagnosis Follow Up Ben Powell MD [facility] 2 9:50AM 10:36AM Insurance Includes: Active Insurance Policies Plan Name Member ID Group # Subscriber Relationship Effect breanne Dates 1 - Medicare Part B [facility] [id number] Francesco Adorno Self 2 - [employer] [place] [id number] Francesco Cahvez 07/27/2016 - Unknown Clinical Notes Includes: Clinical Notes from this encounter No Clinical Notes Recorded
--- OUTSIDE RECORDS SUMMARY | 2024-11-03 20:56 | XMS_ITS | Clinical Summary ---
Author Organization [facility] Address [address] [address] Phone Care Team Providers Care Linux Kernel Developer Name Role Phone Andre DAILY, Ben Unavailable [phone] PERICO AWAN MD Primary [...] Active Last Documented On 2 2:23PM ; [facility] Plan of Treatment Fall Risk Assessment: [...] - Last Documented On 04/08/2022 9:55AM ; [facility] Pending Tests Order Diagnosis Results Due Ordering P roU2opia Mobileder Radiology - CT Scan Pelvis 02/27/22 Ben Powell MD Last Documented On 2 8:42AM ; [facility] Instructions to patient Lose weight Last Documented On 2 9:54AM ; [facility] Assessments Includes: Assessments from this encounter Findings 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 - Last Documented On 04/08/2022 9:55AM ; [facility] Pseudoarthrosis nonunion, left sacroiliac joint. - Last Documented On 04/08/2022 9:55AM ; [facility] Left inferior SI joint arthropathy. - Last Documented On 04/08/2022 9:55AM ; [facility] Instructions Includes: Instructions from this encounter Instructions to patient Lose weight Last Documented On 2 9:54AM ; [facility] Medical Equipment - Implanted Devices Includes: Current Devices No Medical Equipment Recorded Medications Includes: Medications discussed during this encounter and other current Medications Current Medications (continue as prescribed) Lidocaine 5% External Patch 10/30/2021 Provider: PERICO AWAN MD Diagnosis: Last Documented On 2 10:32AM By Aleida Haile ; [facility] Atorvastatin Calcium 40 MG Oral Tablet 10/16/2021 Pr ovider: PERICO AWAN MD Diagnosis: Last Documented On 2 10:32AM By Aleida Haile ; [facility] amLODIPine Besylate 5 MG Oral Tablet 09/27/2021 Prov ider: PERICO AWAN MD Diagnosis: Last Documented On 2 10:32AM By Aleida Haile ; [facility] Gabapentin 300 MG Oral Capsule 09/02/2021 Provider: BRUCE QUIJANO MD (N) Diagnosis: Last Documented On 2 2:24PM By Asia Toscano ; [facility] Lisinopril 10 MG Oral Tablet 07/27/2021 Provider: PERICO AWAN MD Diagnosis: Last Documented On 2 2:24PM By Asia Toscano ; [facility] Medications Administered Includes: Administered Medications from this encounter No Administered Medications Recorded Vital Signs Includes: Vital Signs from this encounter Vital Name 04/07/2022 10:25A Blood Pressure Sitting R 148/82 Pulse Rate-Sitting (bpm) 64 Height (in) 68 Weight (lb) 136 Body Mass Index (kg/m2) 20.7 Body Surface Area (m2) 1.7 Note: sjs Last Documented: On 04/07/2022 10:47A M ; [facility] Results Includes: Results discussed during this [...] 04/07/2022 Last Documented On 2 9:55AM ; [facility] Tobacco non-user 04/07/2022 Last Documented On 2 9:55AM ; [facility] No caffeine use 09/23/2021 Last Documented On 2 10:24AM ; [facility] No recent change in diet 09/23/2021 Last Documented On 2 10:24AM ; [facility] Not a current smoker. 09/23/2021 Last Documented On 2 10:24AM ; [facility] Not exercising regularly 09/23/2021 Last Documented On 2 10:24AM ; [facility] Not using alcohol 09/23/2021 Last Documented On 2 10:24AM ; [facility] Not using drugs 09/23/2021 Last Documented On 2 10:24AM ; [facility] Smoking Status Unknown Procedures and Surgical History Includes: Procedures from this encounter Procedures Code Diagnosis Performing Provider Service L ocation Service Date use of tobacco assessment performed 1000F Last Documented On 2 10:25AM ; [facility] patient screened for future fall risk 3288F Last Documented On 2 10:25AM ; [facility] patient screened for future fall risk: documentation of any fall with injury in past year 1100F Last Documented On 2 10:26AM ; [facility] follow-up visit in one month with PCP fo r elevated BP Last Documented On 2 10:25AM ; [facility] referral to physician Last Documented On 2 10:25AM ; [facility] an X-ray was performed 06/06/2021 Humza SI Joint @ [facility] ~06/06/2021 Pelvis @ [facility] [id number] Last Documented On 2 10:25AM ; [facility] a CT scan was performed 07/27 LT Hip WO @ [facility] ~03/04/2022 Pelvis/L SI Block @ [facility] [id number] Last Documented On 2 10:26AM ; [facility] Surgical History Last Updated History of back surgery 09/23/2021 Last Documented On 2 10:24AM ; [facility] History of heart surgery 09/23/2021 Last Documented On 2 10:24AM ; [facility] Medical History Includes: Medical History addressed during this encounter Description Last Updated History of History of Heart Attack / Str ranjan 05/01/2022 Last Documented On 2 10:24AM ; [facility] Recent immunization for flu 04/26/2021 0 11/07/2021 Last Documented On 2 10:24AM ; [facility] Recent immunization for pneumococcal pne onia 2019 11/07/2021 Last Documented On 2 10:24AM ; [facility] Family History Includes: Family History addressed during this encounter Description Last Updated No significant family history 09/23/2021 Last Documented On 2 10:24AM ; [facility] Review of Systems Includes: Review of [...] Time Diagnosis Follow Up Ben Powell MD [facility] 2 10:28AM 11:10AM Insurance Includes: Active Insurance Policies Plan Name Member ID Group # Subscriber Relationship Effect breanne Dates 1 - Medicare Part B [facility] [id number] Francesco Robersonde Scott 2 - [employer] [place] [id number] Francesco Kyree Chavez 07/27/2016 - Unknown Clinical Notes Includes: Clinical Notes from this encounter No Clinical Notes Recorded
--- OUTSIDE RECORDS SUMMARY | 2024-11-03 20:56 | XMS_ITS | Clinical Summary ---
Author Organization [facility] , [facility] Address [address] [place] [place] [address] Phone Care Team Providers Care Hedge Fund Accountant Name Role Phone Andre DAILY, Ben Unavailable [phone] PERICO AWAN MD Primary [...] Active Last Documented On 2 2:23PM ; [facility] Plan of Treatment Fall Risk Assessment: [...] Documented On 05/01/2022 9:37AM ; [facility], [facility] Pending Tests Order Diagnosis Results Due Ordering P rovider Radiology - CT Scan Pelvis 02/27/22 Ben Powell MD Last Documented On 8:42AM ; [facility] MOONE[facility], [facility] Assessments Includes: Assessments from this encounter Findings 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 - Last Documented On 05/01/2022 9:37AM ; [facility] Right sacral iliac joint arthropathy. - Last Documented On 05/01/2022 9:37AM ; [facility] Medical Equipment - Implanted Devices Includes: Current Devices No Medical Equipment Recorded Medications Includes: Medications discussed during this encounter and other current Medications Current Medications (continue as prescribed) Lidocaine 5% External Patch 10/30/2021 Provider: PERICO AWAN MD Diagnosis: Last Documented On 2 10:32AM By Aleida Haile ; [facility] Atorvastatin Calcium 40 MG Oral Tablet 10/16/2021 Pr ovider: PERICO AWAN MD Diagnosis: Last Documented On 2 10:32AM By Aleida Haile ; [facility] amLODIPine Besylate 5 MG Oral Tablet 09/27/2021 Prov ider: PERICO AWAN MD Diagnosis: Last Documented On 2 10:32AM By Aleida Haile ; [facility] Gabapentin 300 MG Oral Capsule 09/02/2021 Provider: BRUCE QUIJANO MD (N) Diagnosis: Last Documented On 2 2:24PM By Asia Toscano ; [facility] Lisinopril 10 MG Oral Tablet 07/27/2021 Provider: PERICO AWAN MD Diagnosis: Last Documented On 2 2:24PM By Asia Toscano ; [facility] Medications Administered Includes: Administered Medications from this encounter No Administered Medications Recorded Vital Signs Includes: Vital Signs from this encounter Vital Name 05/01/2022 09:07A Blood Pressure Sitting (mmHg) 150/86 Pulse Rate-Sitting (bpm) 69 Height (in) 68 Weight (lb) 133.2 Body Mass Index (kg/m2) 20.3 Body Surface Area (m2) 1.7 Note: rd Last Documented: On 05/01/2022 9:07AM ; [facility] Results Includes: Results discussed during this [...] 05/01/2022 Last Documented On 2 9:37AM ; [facility], [facility] Tobacco non-user 05/01/2022 Last Documented On 2 9:37AM ; [facility], [facility] No caffeine use 09/23/2021 Last Documented On 2 8:58AM ; [facility], [facility] No recent change in diet 09/23/2021 Last Documented On 2 8:58AM ; [facility], [facility] Not a current smoker. 09/23/2021 Last Documented On 2 8:58AM ; [facility] Not exercising regularly 09/23/2021 Last Documented On 2 8:58AM ; [facility] Not using alcohol 09/23/2021 Last Documented On 2 8:58AM ; [facility] Not using drugs 09/23/2021 Last Documented On 2 8:58AM ; [facility] Smoking Status Unknown Procedures and Surgical History Includes: Procedures from this encounter Procedures Code Diagnosis Performing Provider Service L ocation Service Date use of tobacco assessment performed 1000F Last Documented On 2 9:00AM ; [facility] patient screened for future fall risk 3288F Last Documented On 2 9:00AM ; [facility] patient screened for future fall risk: documentation of any fall with injury in past year 1100F Last Documented On 2 9:00AM ; [facility], [facility] follow-up visit in one month with PCP fo r elevated BP Last Documented On 2 9:00AM ; [facility], [facility] follow-up visit in one month Last Documented On 2 9:02AM ; [facility], [facility] referral to physician Last Documented On 2 9:00AM ; [facility], [facility] referral to physician Last Documented On 2 9:02AM ; [facility] an X-ray was performed 06/06/2021 Humza SI Joint @ [facility] ~06/06/2021 Pelvis @ [facility] [id number] Last Documented On 2 9:00AM ; [facility] a CT scan was performed 07/27 LT Hip WO @ [facility] ~03/04/2022 Pelvis/L SI Block @ [facility] [id number] Last Documented On 2 9:00AM ; [facility], [facility] Surgical History Last Updated History of back surgery 09/23/2021 Last Documented On 2 8:58AM ; [facility] History of heart surgery 09/23/2021 Last Documented On 2 8:58AM ; [facility] Medical History Includes: Medical History addressed during this encounter Description 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 05/01/2022 Last Documented On 2 9:37AM ; [facility], [facility] 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 05/01/2022 Last Documented On 2 9:37AM ; [facility], [facility] Past Surgical History: feeding tube ~mead d sx ~ 05/01/2022 Last Documented On 2 9:37AM ; [facility], [facility] Recent immunization for flu 04/26/2021 0 11/07/2021 Last Documented On 2 8:58AM ; [facility], [facility] Recent immunization for pneumococcal pne umonia 2019 11/07/2021 Last Documented On 2 8:58AM ; [facility], [facility] Family History Includes: Family History addressed during this encounter Description Last Updated No significant family history 09/23/2021 Last Documented On 2 8:58AM ; [facility], [facility] Review of Systems Includes: Review of [...] Ben Powell MD [facility] 2 8:52AM 9:21AM Insurance Includes: Active Insurance Policies Plan Name Member ID Group # Subscriber Relationship Effect breanne Dates 1 - Medicare Part B [facility] [id number] Francesco Robersonde Scott 2 - [employer] [id number] Francesco RobersonGarcia 07/27/2016 - Unknown Clinical Notes Includes: Clinical Notes from this encounter No Clinical Notes Recorded
--- OUTSIDE RECORDS SUMMARY | 2024-11-03 20:56 | XMS_ITS ---
Care Plan - [facility] Created on: November 03, 2024 Francesco Adorno : 1940 Sex: Male Author Organization [facility] Address [address] [place] [address] Phone Care Team Providers Care Notereader Name Role Phone Andre DAILY, Ben Unavailable [phone] EMPERATRIZ DAILY, PERICO Alcaraz Primary Care Provider [phone]
--- OUTSIDE RECORDS SUMMARY | 2024-11-03 20:56 | XMS_ITS ---
Author Organization [facility] , [facility] Address [address] [place] [address] Phone Care Team Providers Care Manager Trust Name Role Phone Andre DAILY, Ben Unavailable [phone] PERICO AWAN MD Primary Care Provider [phone] Reason for Referral Date Encounter Description Provider Reason for Referral 05/01/22 Follow Up Ben Powell MD Referral To Physician; Referral To Physician 04/07/22 Follow Up Ben Powell MD Referral To Physician 02/13/22 Follow Up Ben Powell MD Referral To Physician; Referral To Physician 11/07/21 Follow Up Ben Powell MD Referral To Physician 09/23/21 Physician Specified DOMINIQUE CADET PA-C R eferral To Physician Problems Includes: Active, inactive, and resolved Problems All Visits Onset Date Resolved Date Provider Condition S tatus Lower Back Pain 09/23/2021 DOMINIQUE CADET PA-C Active Last Documented On 2 2:23PM ; [facility], [facility] Plan of Treatment Pending Tests Order Diagnosis Results Due Ordering P rovider Radiology - CT Scan Pelvis 02/27/22 Ben Powell MD Last Documented On 2 8:42AM ; [facility], [facility] Instructions to patient Lose weight Last Documented On 2 9:54AM ; [facility], [facility] No intervention and counseli ng on cessation of tobacco use Last Documented On 2 8:42AM ; [facility], [facility] Lose weight Last Documented On 2 8:42AM ; [facility], [facility] Lose weight Last Documented On 2 2:25PM ; [facility], [facility] Assessments Includes: Assessments for all patient encounters No Assessments Recorded Instructions Includes: Instructions for all patient encounters Instructions to patient Lose weight Last Documented On 2 9:54AM ; [facility], [facility] No intervention and counseli ng on cessation of tobacco use Last Documented On 2 8:42AM ; [facility] Lose weight Last Documented On 2 8:42AM ; [facility], [facility] Lose weight Last Documented On 2 2:25PM ; [facility], [facility] Medical Equipment - Implanted Devices Includes: Current and historical Devices No Medical Equipment Recorded Medications Includes: Current and historical Medications Current Medications (continue as prescribed) Lidocaine 5% External Patch 10/30/2021 Provider: PERICO AWAN MD Diagnosis: Last Documented On 2 10:32AM By Aleida Haile ; [facility], [facility] Atorvastatin Calcium 40 MG Oral Tablet 10/16/2021 Pr ovider: PERICO AWAN MD Diagnosis: Last Documented On 2 10:32AM By Aleida Haile ; [facility], [facility] amLODIPine Besylate 5 MG Oral Tablet 09/27/2021 Prov ider: PERICO AWAN MD Diagnosis: Last Documented On 2 10:32AM By Aleida Haile ; [facility] Gabapentin 300 MG Oral Capsule 09/02/2021 Provider: BRUCE QUIJANO MD (N) Diagnosis: Last Documented On 2 2:24PM By Asia Toscano ; [facility], [facility] Lisinopril 10 MG Oral Tablet 07/27/2021 Provider: PERICO AWAN MD Diagnosis: Last Documented On 2 2:24PM By Asia Toscano ; [facility] Past Medications on file predniSONE 5 MG Oral Tablet 09/11/2021 - 11/07/2021 Pr ovider: PERICO AWAN MD Diagnosis: Last Documented On 2 10:31AM By Aleida Haile ; [facility], [facility] Cefdinir 300 MG Oral Capsule 03/31/2021 - 11/07/2021 Lorenzo ferris: Diagnosis: Last Documented On 2 10:32AM By Aleida Haile ; [facility], [facility] Medications Administered Includes: Administered Medications in patient's chart No Administered Medications Recorded Results Includes: Results from 11/04/2023 through 11/03/2024 No Results Recorded For Specified Dates History of Present Illness History of Present Illness not supported for this document type No History of Present Illness Recorded Social History Description Last Updated Not a smoker 05/01/2022 Last Documented On 2 9:37AM ; [facility] Tobacco non-user 05/01/2022 Last Documented On 2 9:37AM ; [facility] Non-smoker 09/23/2021 Last Documented On 2 3:28PM ; [facility], [facility] No caffeine use 09/23/2021 Last Documented On 2 3:28PM ; [facility] No recent change in diet 09/23/2021 Last Documented On 2 3:28PM ; [facility], [facility] Not a current smoker. 09/23/2021 Last Documented On 2 3:28PM ; [facility] Not exercising regularly 09/23/2021 Last Documented On 2 3:28PM ; [facility] Not using alcohol 09/23/2021 Last Documented On 2 3:28PM ; [facility] Not using drugs 09/23/2021 Last Documented On 2 3:28PM ; [facility] Smoking Status Unknown Procedures and Surgical History Surgical History Last Updated History of back surgery 09/23/2021 Last Documented On 2 3:28PM ; [facility] History of heart surgery 09/23/2021 Last Documented On 2 3:28PM ; [facility] Medical History Includes: Medical History in patient's chart Description Last Updated Past Surgical History: feeding tube ~mead d sx 05/26/2022 Last Documented On 2 10:48AM ; [facility], [facility] 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 05/01/2022 Last Documented On 2 9:37AM ; [facility], [facility] 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 05/01/2022 Last Documented On 2 9:37AM ; [facility], [facility] Recent immunization for flu 04/26/2021 0 11/07/2021 Last Documented On 2 12:46PM ; [facility], [facility] Recent immunization for pneumococcal pne umonia 2019 11/07/2021 Last Documented On 2 12:46PM ; [facility], [facility] Family History Includes: Family History in patient's chart Description Last Updated No significant family history 09/23/2021 Last Documented On 2 3:28PM ; [facility], [facility] Review of Systems Review of Systems not supported for this document type No Review of Systems Recorded Mental Status Description No anxiety Functional Status No Functional Status Recorded Physical Exam Physical Exam not supported for this document type No Physical Exam Recorded Immunizations Includes: Immunizations in patient's chart Vaccine Dose # Date Site Reaction(s) Status Source Influenza 1 04/26/2021 Complete (Reported) Patient Last Documented On 2 10:34AM ; [facility], [facility] PCV (Pneumovax 23) 1 07/27/2018 Complete ( Reported) Patient Last Documented On 2 10:35AM ; [facility], [facility] PCV (Pneumovax 23) 2 02/13/2022 Complete (Refused - Patient objection) [facility] Last Documented On 2 9:46AM ; [facility] Td 1 02/13/2022 Complete (Refused - Patient objection) [facility] Last Documented On 2 9:46AM ; [facility] Allergies Includes: Active, inactive, and resolved Allergies No Known Allergies Insurance Includes: Active Insurance Policies Plan Name Member ID Group # Subscriber Relationship Effect breanne Dates 1 - Medicare Part B [facility] [id number] Francesco Robersonde Self 2 - [employer] [id number] Francesco RobersonGarcia 07/27/2016 - Unknown Clinical Notes Includes: Signed Clinical Notes starting from 07/10/2022 No Clinical Notes Recorded
== END 2024-10-19 16:48 ==
LOC: ER 20:52 → ICU 21:06 → 2ND 10-17 10:28 → ICU 11-01 10:07
PROVIDERS: Nurse Practitioner Family; Student in an Organized Health Care Education/Training Program; Surgery; Admitting Provider Internal Medicine Adolescent Medicine; Emergency Provider Emergency Medicine; PCP Family Medicine; Visit Provider Internal Medicine Adolescent Medicine
PROC: 0DJD8ZZ Inspection of Lower Intestinal Tract, Via Natural or Artificial Opening Endoscopic (ICD-10-PCS; CPT 45330; principal; 2024-10-18 13:45)
DX: K91.31 Postprocedural partial intestinal obstruction (principal); S72.144D Nondisplaced intertrochanteric fracture of right femur, subsequent encounter for closed fracture with routine healing; Z85.038 Personal history of other malignant neoplasm of large intestine; Z86.73 Personal history of transient ischemic attack (TIA), and cerebral infarction without residual deficits; K56.7 Ileus, unspecified; N39.0 Urinary tract infection, site not specified; R26.9 Unspecified abnormalities of gait and mobility; R29.6 Repeated falls; N40.1 Benign prostatic hyperplasia with lower urinary tract symptoms; R33.8 Other retention of urine; N13.8 Other obstructive and reflux uropathy; I44.7 Left bundle-branch block, unspecified; Z90.49 Acquired absence of other specified parts of digestive tract; K92.0 Hematemesis
CPT/HCPCS: 45340; 36415; 74018; 74021; 74174; 80053; 81001; 82962; 83605; 83690; 83735; 84100; 84484; 85007; 85025; 85027; 85610; 85730; 86850; 87040; 87081; 87086; 87506; 93005; 97110; 97116; 97163; 97166; 99291; C1726; G0378; J0131; J2270; J2405; J2543; J3480; J7030; J7120; Q9967; S0028

== ENCOUNTER 2024-10-27 13:23 | Outpatient (CLI) | payer MEDICARE, SELFPAY ==
--- NOTE | 2024-10-27 13:28 | XR_ITS ---
FINAL REPORT CLINICAL HISTORY: Rt HIp pain COMPARISON: None FINDINGS: RIGHT HIP Two views of the right hip demonstrate post ORIF changes of the right femur. There is a mildly displaced intertrochanteric right femur fracture. Sclerosis medially suggest partial fracture healing. The hardware is unremarkable. IMPRESSION: Post ORIF changes. Reviewed, Interpreted and Dictated by Lily Portillo MD Transcribed by Aliya Salcedo Authenticated and [facility]
== END 2024-10-27 23:59 | disposition home or self-care (01) ==
LOC: RAD 13:24
PROVIDERS: PCP Family Medicine; Visit Provider Orthopaedic Surgery
DX: M25.551 Pain in right hip (principal); S72.001A Fracture of unspecified part of neck of right femur, initial encounter for closed fracture
CPT/HCPCS: 73502

== ENCOUNTER 2024-12-06 12:44 | Outpatient (CLI) | payer MEDICARE, SELFPAY ==
--- OUTSIDE RECORDS SUMMARY | 2024-12-06 12:46 | XMS_ITS | Continuity of Care Document ---
Author Name [facility] Organization [facility] Care Team Providers Care Lead Infrastructure Architect Name Role Phone [facility] Unavailable Unavailable Problems Combined list of problems from Department of [facility] and [facility] facilities. It does not include entries that were removed or entered in error. Problem Status Onset Date Problem Type Date of Resolution Comments Source Benign hypertension Active Condition [facility] BPH - Benign prostatic hypertrophy Active Condition [facility] Carcinoma of colon Active Condition N 2015 Entered By: MELISSA AGUILLON Comment: HX OF COLON RESECTION [facility] Hyperlipidemia Active Condition [place] [facility] Medications Combined list of outpatient medications from Department of [facility] and [facility] facilities.Medications provided include 1) outpatient medications from the last 15 months, and 2) patient-reported medications. Medication Details Route Status Patient Instructions Prescription Expires Prescription Number Last Dispense Date Ordering Provider Order Date Order Qty Source ATORVASTATI N CA 40MG TAB TAKE ONE-HALF TABLET BY MOUTH DAILY ORAL ACTIVE MIRACLE CARSON IN 2017 [place] [facility] FISH OIL 1000MG (500MG DHA/EPA) CAP,ORAL TAKE 2 CAPSULES BY MOUTH DAILY ORAL ACTIVE KAMARI AGUILLON 2015 [place] [facility] LISINOPRIL 20MG TAB TAKE ONE-HALF TABLET BY MOUTH TWICE A DAY ORAL ACTIVE MIRACLE CARSON IN C 2017 [place] [facility] METOPROLOL SUCCINATE 25MG TAB,SA TAKE ONE-HALF TABLET BY MOUTH DAILY ORAL ACTIVE MIRACLE CARSON IN 2017 [place] [facility] Immunizations Combined list of available immunizations from the Department of [facility] and [facility] facilities. 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 Social History Type Response Date Comment [facility] e Tobacco smoking status [facility]-TO[facility]ACCO NEVER USED 07/15/2018 [facility] History of tobacco use V9 LIFETIME NON-USER OF TOBACCO 06/26/2017 [facility] History of tobacco use V9 LIFETIME NON-USER OF TOBACCO 06/05/2016 [facility] History of tobacco use V9 LIFETIME NON-USER OF TOBACCO 05/30/2015 [facility]
--- NOTE | 2024-12-06 12:48 | XR_ITS ---
FINAL REPORT CLINICAL HISTORY: Right hip pain COMPARISON: 10/27/2024 FINDINGS: RIGHT HIP 3 views of the right hip demonstrate an intramedullary ellen and compression screw securing a healed fracture deformity of the proximal right femur. The hip joint space is preserved. The visualized bony structures are well aligned. No soft tissue abnormality is seen. IMPRESSION: Postoperative changes as above. Reviewed, Interpreted and Dictated by Sonny Alva MD Transcribed by Lesli Ly Authenticated and [facility]
== END 2024-12-06 23:59 | disposition home or self-care (01) ==
LOC: RAD 12:45
PROVIDERS: PCP Family Medicine; Visit Provider Orthopaedic Surgery
DX: S72.001D Fracture of unspecified part of neck of right femur, subsequent encounter for closed fracture with routine healing
CPT/HCPCS: 73502

== ENCOUNTER 2024-12-15 14:41 | Outpatient (CLI) | payer MEDICARE, SELFPAY ==
--- OUTSIDE RECORDS SUMMARY | 2024-12-15 14:45 | XMS_ITS | Continuity of Care Document ---
Author Name [facility] Organization [facility] Care Team Providers Care Paper Tube Cutter Name Role Phone [facility] Unavailable Unavailable Problems Combined list of problems from Department of [facility] and [facility] facilities. It does not include entries that were removed or entered in error. Problem Status Onset Date Problem Type Date of Resolution Comments Source Benign hypertension Active Condition [facility] BPH - Benign prostatic hypertrophy Active Condition [facility] Carcinoma of colon Active Condition N 2015 Entered By: MELISSA AGUILLON Comment: HX OF COLON RESECTION [facility] Hyperlipidemia Active Condition [place] [facility] Medications Combined list of outpatient medications from Department of [facility] and [facility] facilities.Medications provided include 1) outpatient medications from the last 15 months, and 2) patient-reported medications. Medication Details Route Status Patient Instructions Prescription Expires Prescription Number Last Dispense Date Ordering Provider Order Date Order Qty Source ATORVASTATI N CA 40MG TAB TAKE ONE-HALF TABLET BY MOUTH DAILY ORAL ACTIVE MIRACLE CARSON IN 2017 [place] [facility] FISH OIL 1000MG (500MG DHA/EPA) CAP,ORAL TAKE 2 CAPSULES BY MOUTH DAILY ORAL ACTIVE KAMARI AGUILLON 2015 [place] [facility] LISINOPRIL 20MG TAB TAKE ONE-HALF TABLET BY MOUTH TWICE A DAY ORAL ACTIVE MIRACLE CARSON IN C 2017 [place] [facility] METOPROLOL SUCCINATE 25MG TAB,SA TAKE ONE-HALF TABLET BY MOUTH DAILY ORAL ACTIVE MIRACLE CARSON IN 2017 [place] [facility] Immunizations Combined list of available immunizations from the Department of [facility] and [facility] facilities. 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 Social History Type Response Date Comment [facility] e Tobacco smoking status [facility]-TOBACCO NEVER USED 07/15/2018 [facility] History of tobacco use V9 LIFETIME NON-USER OF TOBACCO 06/26/2017 [facility] History of tobacco use V9 LIFETIME NON-USER OF TOBACCO 06/05/2016 [facility] History of tobacco use V9 LIFETIME NON-USER OF TOBACCO 05/30/2015 [facility]
--- NOTE | 2024-12-15 14:52 | XR_ITS ---
FINAL REPORT CLINICAL HISTORY: INTERNAL DERANGEMENT OF RT KNEE COMPARISON: 11/29/2021 FINDINGS: RIGHT KNEE Two views were obtained. There is no fracture or dislocation. There is severe loss of the joint space in the medial compartment which is mildly progressed. The bones are osteopenic. Small joint effusion is identified. No acute soft tissue abnormality is identified. 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 Reviewed, Interpreted and Dictated by Lily Portillo MD Transcribed by Raisa Plummer Authenticated and [facility]
== END 2024-12-15 23:59 | disposition home or self-care (01) ==
LOC: RAD 14:44
PROVIDERS: PCP Family Medicine; Visit Provider Physician Assistant
DX: M17.11 Unilateral primary osteoarthritis, right knee (principal); M23.91 Unspecified internal derangement of right knee
CPT/HCPCS: 73562

== ENCOUNTER 2025-01-05 10:42 | Outpatient (CLI) | payer MEDICARE, SELFPAY ==
--- OUTSIDE RECORDS SUMMARY | 2018-07-15 07:46 | XMS_ITS | Continuity of Care Document ---
Author Name [facility] Organization [facility] Care Team Providers Care Intelligence Specialist Name Role Phone [facility] Unavailable Unavailable Problems Combined list of problems from Department of [facility] and [facility] facilities. It does not include entries that were removed or entered in error. Problem Status Onset Date Problem Type Date of Resolution Comments Source Benign hypertension Active Condition [facility] BPH - Benign prostatic hypertrophy Active Condition [facility] Carcinoma of colon Active Condition N 2015 Entered By: MELISSA AGUILLON Comment: HX OF COLON RESECTION [facility] Hyperlipidemia Active Condition [place] [facility] Medications Combined list of outpatient medications from Department of [facility] and [facility] facilities.Medications provided include 1) outpatient medications from the last 15 months, and 2) patient-reported medications. Medication Details Route Status Patient Instructions Prescription Expires Prescription Number Last Dispense Date Ordering Provider Order Date Order Qty Source ATORVASTATI N CA 40MG TAB TAKE ONE-HALF TABLET BY MOUTH DAILY ORAL ACTIVE MIRACLE CARSON IN 2017 [place] [facility] FISH OIL 1000MG (500MG DHA/EPA) CAP,ORAL TAKE 2 CAPSULES BY MOUTH DAILY ORAL ACTIVE KAMARI AGUILLON 2015 [place] [facility] LISINOPRIL 20MG TAB TAKE ONE-HALF TABLET BY MOUTH TWICE A DAY ORAL ACTIVE MIRACLE CARSON IN 2017 [place] [facility] METOPROLOL SUCCINATE 25MG TAB,SA TAKE ONE-HALF TABLET BY MOUTH DAILY ORAL ACTIVE MIRACLE CARSON IN 2017 [place] [facility] Immunizations Combined list of available immunizations from the Department of [facility] and [facility] facilities. Immunization Series Date Given Administered By Site Reaction Lot Number CVX Code Drug Black Topper Status Comments Source TDAP (HISTORICAL) 2013 115 complet ed [place] [facility] Social History Combined list of available smoking, tobacco, and other social history from Department of Defense and Veterans Affairs facilities. Social History Type Response Date Comment [facility] e Tobacco smoking status [facility] VA-TOBACCO NEVER USED 07/15/2018 [facility] History of tobacco use V9 LIFETIME NON-USER OF TOBACCO 06/26/2017 [facility] History of tobacco use V9 LIFETIME NON-USER OF TOBACCO 06/05/2016 [facility] History of tobacco use V9 LIFETIME NON-USER OF TOBACCO 05/30/2015 [facility]
--- OUTSIDE RECORDS SUMMARY | 2024-11-07 09:10 | XMS_ITS | Encounter Summary ---
Author Organization Healthcare Address [address] [place] [address] Care Team Providers Care Medical Typist Name Role Phone Robert Batista MD Primary Care Provider [phone] Encounter Details Date Type Department Care Team (Latest Contact Info) Description 11/07/2024 9:10 AM EDT - 11/07/2024 11:59 PM EDT Hospital Encounter [facility] [address] [place] [address] Soft tissue sarcoma (CMS/HCC) Discharge Disposition: Home or Self Care Social History Tobacco Use Types Packs/Day Years Used Date Smoking Tobacco: Never Smokeless Tobacco: Former Alcohol Use Standard Drinks/Week Comments Never 0 (1 standard drink = 0.6 oz pur e alcohol) Humiliation, Afraid, Rape, and Kick questionnair e Answer Date Recorded Within the last year, have y ou been afraid of your partner or ex-partner? No 08/19/2024 Within the last year, have y ou been humiliated or emotionally abused in other ways by your partner or ex-partner? No Within the last year, have y ou been kicked, hit, slapped, or otherwise physically hurt by your partner or ex-partner? No 08/19/2024 Within the last year, have y ou been raped or forced to have any kind of sexual activity by your partner or ex-partner? No 08/19/2024 PHQ-2 Answer Date Recorded Patient Health Questionnaire-2 Score 0 11/07/2024 Hunger Vital Sign Answer Date Recorded Within the past 12 months, y ou worried that your food would run out before you got the money to buy more. Never true 08/19/19 25 Within the past 12 months, t he food you bought just didn't last and you didn't have money to get more. Never true 08/19/2024 PRAPARE - Transportation Answer Date Re corded In the past 12 months, has l ack of transportation kept you from medical appointments or from getting medications? No 07/28 In the past 12 months, has l ack of transportation kept you from meetings, work, or from getting things needed for daily living? No 08/19/2024 PHQ-9 Answer Date Recorded Patient Health Questionnaire-9 Score 0 11/07/2024 Housing Stability Vital Sign Answer Dev e Recorded In the last 12 months, was t here a time when you were not able to pay the mortgage or rent on time? No 08/19/2024 In the past 12 months, how m any times have you moved where you were living? 0 08/19/2024 At any time in the past 12 m onths, were you homeless or living in a mcc (including now)? No 08/19/2024 CAGE ASSESSMENT Answer Date Recorded Cage unable to access Not on file 08/14/2023 Cage max number of drinks Not on file 2023 Cage Beverages a week Not on file 08/14/2023 Have you ever felt you should CUT down on your d rinking? 0 08/14/2023 Have you been ANNOYED by people criticizing your drinking? 0 08/14/2023 Have you felt GUILTY about your drinking? 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 0 08/14/2023 CAGE Questionnaire Score 0 024 Utilities Answer Date Recorded In the past 12 months has th e electric, gas, oil, or water company threatened to shut off services in your home? No 08/19/2024 Sex and Gender Information Value Date Recorded Sex Assigned at Male 03/09/2023 11:40 AM EDT Legal Sex Male 7:55 PM EDT Gender Identity Male 03/09/2023 11:40 AM EDT Sexual Orientation Straight 03/09/2023 11 :40 AM EDT documented as of this encounter Functional Status * Over the past 2 weeks, how often have you been bothered by any of the following problems? Question Answer Date of Assessment Author Little interest or pleasure in doing things Not at all 11/07/2024 11:16 AM Tracey Winslow Feeling down, depressed, or hopeless Not at all 11/07/2024 11:16 AM Tracey Winslow Patient Health Questionnaire -2 Score 0 11/07/2024 11:16 AM Tracey Winslow * Question Answer Date of Assessment Author Trouble falling or staying a sleep, or sleeping too much Not at all 11/07/2024 11:16 AM Tracey Winslow Feeling tired or having james le energy Not at all 11/07/2024 11:16 AM Tracey Winslow Poor appetite or overeating Not at all 11/07/2024 11 :16 AM Tracey Winslow Feeling bad about yourself - or that you are a failure or have let yourself or your family down Not at all 11/07/2024 11:16 AM Rima Winslow Trouble concentrating on thi ngs, such as reading the newspaper or watching television Not at all 11/07/2024 11:16 AM Tracey Winslow Moving or speaking so slowly that other people could have noticed? Or the opposite - being so fidgety or restless that you have been moving around a lot more than usual. Not at all 11/07/2024 11:16 AM Tracey Winslow Thoughts that you would be b andreas off or hurting yourself in some way Not at all 11/07/2024 11:16 AM Tracey Winslow Patient Health Questionnaire -9 Score 0 11/07/2024 11:16 AM Tracey Winslow * Calculated C-SSRS Risk Score (Lifetime/Recent) Answer Date of Assessment Author No Risk Indicated 11/07/2024 11:16 Tracey Peterson * If you checked off any problems on this questionnaire so far, Question Answer Date of Assessment Author How difficult have these problems made it for you to do your work, take care of things at home, or get along with other people? Not difficult at all 11/07/2024 11:16 AM EDT Rice, Tracey K * Question Answer Date of Assessment Author 1. Wish to be (Past 1 Month) No 025 11:16 AM EDT Tracey Quintanilla 2. Non-Specific Active Suici moisés Thoughts (Past 1 Month) No 11/07/2024 11:16 AM EDT Tracey Quintanilla 6. Suicidal Behavior (Lifetime) No 11:16 AM EDT Tracey Quintanilla documented as of this encounter Medications at Time of Discharge amLODIPine (Norvasc) 5 MG tablet Take 0.5 tablets (2.5 mg) by mouth 1 (one) time each day. 01/16/2023 Baclofen 5 MG tablet Take 1 tablet (5 mg) by mouth 3 (three) times a day. diphenoxylate-atropi ne (Lomotil) 2.5-0.025 MG tablet Take 2 tablets by mouth every 4 (four) hours if needed for diarrhea. DULoxetine (Cymbalta) [address] capsule Take 1 capsule (60 mg) by mouth 2 (two) times a day. 02/02/2023 gabapentin (Neurontin) 300 MG capsule 900mg in the morning and 1200mg nightly 02/23/2023 levoFLOXacin (Levaquin) 500 MG tablet Take 1 tablet by mouth. 09/09/2024 lisinopril 10 MG tablet Take 1 tablet (10 mg) by mouth 1 (one) time each day. 02/11/2023 ondansetron ODT (Zofran-ODT) 4 MG disintegrating tablet 1 tablet. 08/31/2024 tamsulosin (Flomax) 0.4 MG 24 hr capsule Take 1 capsule by mouth. 09/05/2024 documented as of this encounter Plan of Treatment Upcoming Encounters Date Type Department Care Team (Late st Contact Info) Description 02/06/2025 9:25 AM EDT Appointment [facility] [address] [place] [phone] 02/06/2025 10:45 AM EDT Office Visit [facility] [address] [place] [address] Darell Turcios MD [address] [address] 02/13/2025 12:50 PM EDT [facility] [address] [place] [address] Tari Christie PA [address] [place] [address] documented as of this encounter Goals Goal Patient Goal Type Associated Problems Recent Progress Patient-Stated? Author OT Goal: Pt to be educated on HEP to improve AROM by 1 visit. Occupational Therapy No Ceci Jacobo, OT documented as of this encounter Procedures Procedure Name Priority Date/Time Associated Diagnosis Comments XR CHEST 2 VIEWS Routine 11/07/2024 11:0 5 AM EDT Soft tissue sarcoma (CMS/HCC) documented in this encounter Results * XR Chest 2 Views (11/07/2024 11:05 AM EDT) Anatomical Region Laterality Modality Chest Digital Radiogra phy Impressions 11/07/2024 11:29 AM EDT No acute findings CRITICAL RESULT: No. COMMUNICATION: Per this written report. Drafted by Salma Garcia MD on 11/07/2024 11:27 AM Final report signed by Salma Garcia MD on 11/07/2024 11:29 AM Narrative 11/07/2024 11:29 AM EDT CLINICAL INDICATION: sarcoma TECHNIQUE: XR CHEST 2 VIEWS COMPARISON: July 18, 2024 FINDINGS: Stable cardiomediastinal silhouette. No acute airspace opacities. No pleural effusions or pneumothorax. No acute osseous findings. Procedure Note Salma Garcia MD - 11/07/2024 CLINICAL INDICATION: sarcoma TECHNIQUE: XR CHEST 2 VIEWS COMPARISON: July 18, 2024 FINDINGS: Stable cardiomediastinal silhouette. No acute airspace opacities. Nopleural effusions or pneumothorax. No acute osseous findings. IMPRESSION: No acute findings CRITICAL RESULT: No. COMMUNICATION: Per this written report. 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
--- OUTSIDE RECORDS SUMMARY | 2024-11-07 10:45 | XMS_ITS | Encounter Summary ---
Author Organization Healthcare Address [address] [place] [address] Care Team Providers Care Paper Sample Clerk Name Role Phone Robert Batista MD Primary Care Provider [phone] Encounter Details Date Type Department Care Team (Latest Contact Info) Description 11/07/2024 10:45 AM EDT Office Visit [facility] Multidisciplinary Oncology Clinic [address] [place] [address] Darell Turcios MD [address] [facility] [address] [place] [address] Soft tissue sarcoma (CMS/HCC) (Primary Dx) Social History Tobacco Use Types Packs/Day Years [...] any time in the past 12 m [facility], were you homeless or living in a snf (including now)? 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 0 08/14/2023 CAGE Questionnaire Score 0 024 Utilities Answer Date Recorded In the past 12 months has th e [employer], gas, oil, or water company threatened to shut off services in your home? No 08/19/2024 Sex and Gender Information Value Date Recorded Sex Assigned at Male 03/09/2023 11:40 AM EDT Legal Sex Male 7:55 PM EDT Gender Identity Male 03/09/2023 11:40 AM EDT Sexual Orientation Straight 03/09/2023 11 :40 AM EDT documented as of this encounter Last Filed Vital Signs Vital Sign Reading Time Taken Comments Blood Pressure 113/70 11/07/2024 11:16 AM EDT Pulse 87 11/07/2024 11:16 AM EDT Temperature 36.3 C (97.4 F) 11/07/2024 11:08 AM EDT Respiratory Rate - - Oxygen Saturation 98% 11/07/2024 11: 08 AM EDT Inhaled Oxygen Concentration - - Weight 57.9 kg (127 lb 10.3 oz) 025 11:08 AM EDT Height - - Body Mass Index 20.6 07/18/2024 10:33 AM EST documented in this encounter Functional Status * Over the [...] way Not at all 11/07/2024 11:16 AM EDT Tracey Quintanilla Patient Health Questionnaire -9 Score 0 11/07/2024 11:16 AM EDT Tracey Quintanilla * Calculated C-SSRS Risk Score (Lifetime/Recent) Answer Date of Assessment Author No Risk Indicated 11/07/2024 11:16 AM ANGIET Tracey Quintanilla * If you checked off any problems on this questionnaire so far, Question Answer Date of Assessment Author How difficult have these problems made it for you to do your work, take care of things at home, or get along with other people? Not difficult at all 11/07/2024 11:16 AM EDT Tracey Quintanilla * Question Answer Date of Assessment Author 1. Wish to be (Past 1 Month) No 025 11:16 AM Tracey Winslow 2. Non-Specific Active Suici moisés Thoughts (Past 1 Month) No 11/07/2024 11:16 AM EDT Tracey Quintanilla 6. 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 Skin: Appropriate for ethnicity, warm, dry, no abnormal skin changes. 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 He will continue doing daily skin checks Cosigned by Darell Turcios MD at 11/07/2024 12:14 PM EDT Associated attestation - Darell Turcios MD - 11/07/2024 12:14 PM EDT I saw and evaluated the patient with the resident/fellow. I discussed the case with the resident/fellow and agree with the findings and plan as documented. documented in this encounter Plan of Treatment Upcoming Encounters Date Type Department Care Team (Late st Contact Info) Description 02/06/2025 9:25 AM EDT Appointment [facility] [address] [place] [address] 02/06/2025 10:45 AM EDT Office Visit [facility] [address] [place] [address] Darell Turcios MD [address] [facility] [address] [place] [address] 02/13/2025 12:50 PM EDT Consult [facility] [address] [place] [address] Tari Christie PA [address] [facility] [address] [place] [address] Scheduled Orders Name Type Priority Associated Diagnoses Orde r Schedule XR Chest 2 Views Imaging Routine Soft tissue sarcoma (CMS/HCC) Expected: 02/06/2025, Expires: 05/09/2026 documented as of this encounter Goals Goal Patient Goal Type Associated Problems Recent Progress Patient-Stated? Author OT Goal: Pt to be educated on HEP to improve AROM by 1 visit. Occupational Therapy No Ceci Jacobo, OT documented as of this encounter Visit Diagnoses Diagnosis Soft tissue sarcoma (CMS/HCC)- Primary Malignant neoplasm of connective and other soft [...] documented as of this encounter Care Teams Paper Sample Clerk Relationship Specialty Start Date End Date Robert Batista MD [address] [place] [address] #1 #1 CLAUDIA Lemus [phone] PCP - General 12/07/20 documented as of this encounter
--- OUTSIDE RECORDS SUMMARY | 2025-01-05 10:44 | XMS_ITS ---
Author Name Auto Generated, Auto Generated Organization [facility] Address [address] [place] [id number] Phone [phone] Care Team Providers Care Customer Retention Specialist Name Role Phone Leo Osullivan Unavailable [phone] Functional Status No Results Mental Status No Results Allergies and Intolerances Name Onset Date Reaction Severity No Known Drug Allergies (Allergy) ThuOct 10 10: 03:00 EDT 2024 Encounters Program Name Primary Diagnosis Admission Date/Time Dis charge Date/Time null ThuOct 06 20:00:00 EDT 2024 Medications Medication Directions Start Date End Date Percocet 5 mg-325 mg tablet 1 Tablet Ora l Every 4 Hours, PRN Indication: Pain ThuOct 07 00:00:00 EDT 2024 gabapentin 300 mg capsule 3 Capsule Oral 1 Time Daily Indication: n/a ThuOct 10 00:00:00 EDT 2024 gabapentin 300 mg capsule 4 Capsule Oral Hour Of Sleep Indication: n/a ThuOct 10 00:00:00 EDT 2024 Problems No Known Problems Social History Social History Observation Description Date Smoking Status Unknown if ever smoked ThuSep 24 00:00:00 EDT 2024 Sex Male Sun May 10 00:00 :00 EST 1940 Reason for Referral
--- NOTE | 2025-01-05 10:45 | XR_ITS ---
FINAL REPORT CLINICAL HISTORY: right hip pain COMPARISON: 12/06/2024 FINDINGS: RIGHT HIP Two views of the right hip with an AP view of the pelvis demonstrate an intramedullary ellen and compression screw in the right femur. There appears to be an avulsion of the lesser trochanter. Sclerosis and hypertrophic changes are noted of the right hip. No soft tissue abnormality is seen. IMPRESSION: No acute bony abnormality. Postoperative and degenerative changes. Reviewed, Interpreted and Dictated by Sonny Alva MD Transcribed by Aliya Salcedo Authenticated and [facility]
--- OUTSIDE RECORDS SUMMARY | 2025-01-05 12:54 | XMS_ITS | Encounter Summary ---
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 Milling Wheel Operator Name Role Phone Unavailable Primary Care Provider Unavailabl e Encounter Details Date Type Department Care Team (Late st Contact Info) Description 12/29/2020 Transcribed Document [facility] [place] [facility] [address] [place] [address] ProviderMacrina MD [address] [place], [place] [id number] Social History Tobacco Use Types Packs/Day Years Used Date Smoking Tobacco: Never Assessed Sex and Gender Information Value Date Recorded Sex Assigned at Not on file Legal Sex Male 1:13 PM CDT Gender Identity Not on file Sexual Orientation Not on file documented as of this encounter Miscellaneous Notes * Cerner Conversion Note - Historical ProviderMD - 12/29/2020 5:00 PM CDT Chart Check - Review Order Profile Entered On: 12/29/2020 15:08 EDT Performed On: 12/29/2020 17:00 EDT by JOSEPH LEWIS RN Chart Check Powerplans Initiated/Discontinued as Appropriate : Yes All Active Orders Reviewed : Yes JOSEPH LEWIS RN - 12/29/2020 15:07 EDT documented in this encounter Plan of Treatment Not on file documented as of this encounter Visit Diagnoses Not on filedocumented in this encounter
--- OUTSIDE RECORDS SUMMARY | 2025-01-05 12:54 | XMS_ITS | Encounter Summary ---
Author Organization [facility] Address [address] [place] [address] Care Team Providers Care Embryology Professor Name Role Phone Unavailable Primary Care Provider Unavailabl e Encounter Details Date Type Department Care Team (Late st Contact Info) Description 12/27/2020 Transcribed Document [facility] [place] [facility] [place] [address] ProviderMacrina MD [address] [place] [address] Social History Tobacco Use Types Packs/Day Years Used Date Smoking Tobacco: Never Assessed Sex and Gender Information Value Date Recorded Sex Assigned at Not on file Legal Sex Male 1:13 PM CDT Gender Identity Not on file Sexual Orientation Not on file documented as of this encounter Miscellaneous Notes * Cerner Conversion Note - Macrina Cordova MD - 12/27/2020 5:49 PM CDT DATE OF PROCEDURE: 12/27/2020 SURGEON: Cuauhtemoc Gresham MD PREOPERATIVE DIAGNOSES: 1. Mediastinal hemorrhage. 2. Cardiac tamponade. 3. Status post pericardial window. 4. Status post CPR and cardiac arrest. 5. Status post transcatheter aortic valve implantation. POSTOPERATIVE DIAGNOSES: 1. Mediastinal hemorrhage. 2. Cardiac tamponade. 3. Status post pericardial window. 4. Status post CPR and cardiac arrest. 5. Status post transcatheter aortic valve implantation. PROCEDURES PERFORMED: 1. Emergent median sternotomy. 2. Repair of left ventricular tear. ANESTHESIA: General endotracheal anesthesia. PST SPECIALIST: Hao Salazar, Physician Candle Wrapper. INDICATION FOR PROCEDURE: Mr. Francesco Adorno is an 80-year-old male, who underwent transcatheter aortic valve implantation today. Postprocedure, the patient developed cardiac tamponade and cardiac arrest, requiring CPR. Subsequent to that, the patient had a pericardial window. At that time, some blood was drained from the pericardial sac, but no active bleeding was encountered. A large chest tube was ultimately placed and the patient was transferred to the intensive care unit. Few hours later, the patient developed significant amount of hemorrhage and drainage from the pericardial sac chest tube. We are now planning for emergent take back for evaluation. FINDINGS OF THE OPERATION: There was evidence of broken ribs from the previous CPR. Upon opening the pericardium, large amount of bright red blood was encountered. Evaluation of the myocardium revealed relatively large active tear and bleeding with hematoma formation in the apical region of the left ventricle. This was repaired off pump with a 3-0 Prolene on an MH needle and a felt. DESCRIPTION OF PROCEDURE: The patient was emergently taken back to the operating room and was placed in supine position. General endotracheal anesthesia was administered without any complication. Entire chest, abdomen, lower extremity to the knee were prepped and draped in sterile fashion. Time-out was called. The patient identity and the procedure were confirmed. Median sternotomy incision was made. Sternum was then opened using the saw. Hemostasis was obtained using electrocautery. The sternum was then spread. The pericardium was opened. Upon opening the pericardium, a large amount of bright red blood that was under the pressure was relieved with immediate improvement in the patient's blood pressure. Pericardial sac was then created. Active bleeding with bright red blood was encountered in the pericardial sac. Evaluation of the myocardium revealed active tear and bleeding from the apical aspect of the left ventricle. Some old hematoma that was in the pericardial sac was removed. At this point, we decided to proceed with the repair of the tear without placing the patient on cardiopulmonary bypass. Two rows of felt was then cut and was prepared for usage. By lifting up the heart, the apical aspect was identified. The 3-0 MH needles were then placed through the felt and then was placed through the apex of the myocardium and was placed through another row of felt on the other side. Horizontal mattress sutures were then placed in the area of the tear. The sutures were then tied over the felt with the control of the bleeding from the apical aspect of the left ventricle. Sutures were then cut down. Evaluation of the tear again was then performed by lifting up the heart and there was no evidence of any bleeding any longer. At this point, the pericardial sac was then reapproximated using silk sutures. A 36-Maltese right angle chest tube was placed in the right pleural space and was brought out through a separate skin site and was secured. There was no evidence of blood accumulating in the pericardial sac anymore. At this point, we felt comfortable closing the chest. Sternum was then closed using 8 stainless steel wires placed in simple interrupted fashion. It is important to mention that there was a 36-Maltese right angle chest tube that was in place in the posterior aspect of the pericardium. This chest tube was placed after the pericardial window that was originally performed. After approximation of the sternum, fascia was approximated using 0 PDS. Subcutaneous tissue was closed using 2-0 Vicryl and skin was approximated in subcuticular stitches. The patient tolerated the procedure well and was transferred to the intensive care unit. /[id number] Cuauhtemoc Gresham MD HRM/AQ / HRM / MODL /[id number] CC: MD Arthur Carrington MD Electronically signed by El[facility] Conversion Appeals Writer Cerner at 11/10/2022 9:14 AM CDT documented in this encounter Plan of Treatment Not on file documented as of this encounter Visit Diagnoses Not on filedocumented in this encounter
--- OUTSIDE RECORDS SUMMARY | 2025-01-05 12:54 | XMS_ITS | Encounter Summary ---
Author Organization [email or web address] Address [address] [place] [address] Care Team Providers Care Bight Maker Name Role Phone Unavailable Primary Care Provider Unavailabl e Encounter Details Date Type Department Care Team (Late st Contact Info) Description 01/02/2021 Transcribed Document [facility] [place] [address] [place] [address] ProviderMacrina MD [address], [place] [id number] Social History Tobacco Use Types Packs/Day Years Used Date Smoking Tobacco: Never Assessed Sex and Gender Information Value Date Recorded Sex Assigned at Not on file Legal Sex Male 1:13 PM CDT Gender Identity Not on file Sexual Orientation Not on file documented as of this encounter Miscellaneous Notes * Cerner Conversion Note - Macrina ProviderMD - 01/02/2021 2:52 PM CDT On Going Discharge Planning Entered On: 01/02/2021 14:55 EDT Performed On: 01/02/2021 14:52 EDT by SOPHY RM Rn-Hospitality SpecialistTape Sewing Machine Operator Progress Note Discharge Arrangements : Patient Post-Acute Information Patient Name: JOSE ADORNO Gender: Male : 39 Age: 80 Years No Post-Acute Placement(s) Listed No Post-Acute Service(s) Listed No [place] Referral(s) Listed Discharge Options Discussed with Patient : DME, Home Health, Outpatient services, Short term rehabilitation Barriers to Discharge Identified : Clinical Condition of Patient, Follow-Up appointments needed Barriers to Discharge Unresolved : Clinical Condition of Patient SOPHY RM Rn-Hospitality Specialist - 01/02/2021 14:52 EDT Narrative Progress Note Narrative Progress Note : HD#6; ELOS 3; LRR; BOOST 6; POD #6 - Electiv TAVR/L Vent Tear/Cardiac Tamponode/Arrest - reintubated 01/01; fi02 40; Levo/Fent/Precedex gtt; wean sedation - on SBT 2hr TID; T=99.9; Dr. Navarro states during MDR that pt's spouse aware may need trach/peg; DCP TBD pending progress. Historical Progress Note : HD#5; ELOS 3; LRR; BOOST 6; POD #5 - Elective TAVR/L Ventrial Tear/Cardiac Tamponode; extubated on 12/31 required reintubation today fi02 60/peep 8; Precedex/Fent gtt; Corpak/TF; IV Zosyn; CT draining; T=100; DCP TBD pending progress; will need therapy evals when appropriate. SOPHY RM Rn-Hospitality Specialist - 01/01/21 14:47:57 HD#4; ELOS 3; LRR; POD#4 - Electiv TAVR; L Ventrical Tear; intubated fi02 50; Cardene gtt; Corpak to be placed and TF initiated; SBT today; following commands; Head MRI ordered; possible extubation post MRI; no movement noted on R side; will need PT/OT evaluations when extubated; DCP pending progress - likely rehab. SOPHY RM Rn-Hospitality Specialist - 12/31/20 14:58:43 DCP TBD - pending progress; OP Cardiac Rehab referral placed thru [facility]. SOPHY RM Rn-Hospitality Specialist - 12/28/20 12:42:03 SOPHY RM Rn-Hospitality Specialist - 01/02/2021 14:52 EDT documented in this encounter Plan of Treatment Not on file documented as of this encounter Visit Diagnoses Not on filedocumented in this encounter
--- OUTSIDE RECORDS SUMMARY | 2025-01-05 12:54 | XMS_ITS | Encounter Summary ---
Author Organization [facility] Address [address] [place] [address] Care Team Providers Care Flange Machine Operator Name Role Phone Unavailable Primary Care Provider Unavailabl e Encounter Details Date Type Department Care Team (Late st Contact Info) Description 01/07/2021 Transcribed Document [facility] [place] [address] [place] [address] ProviderMacrina MD [address] [place] [address] Social History Tobacco Use Types Packs/Day Years Used Date Smoking Tobacco: Never Assessed Sex and Gender Information Value Date Recorded Sex Assigned at Not on file Legal Sex Male 1:13 PM CDT Gender Identity Not on file Sexual Orientation Not on file documented as of this encounter Miscellaneous Notes * Cerner Conversion Note - Macrina Cordova MD - 01/07/2021 9:52 AM CDT Patient: JOSE ADORNO Age: 80 years Sex: Male : 1940 Associated Diagnoses: None Author: ANANDA QUILES MD-ZURDO Subjective Pt now extubated, sitting up working with PT; he is complaining of poor sleep, feels weak. Overall much improved Objective VS/Measurements Vital Signs/Vital Measures 01/07/2021 9:00 EDT Systolic Blood Pressure 171 mmHg HI Diastolic Blood Pressure 80 mmHg Clinical Temperature, F 99.1 Deg F Heart Rate Monitored 104 bpm HI General: Pt is awake, able to answer most questions appropiately but speech is soft, dysarthric and difficult to understand. He follows commands well. Eye: Pupils are equal, round and reactive to light, Left gaze preference; does not look past midline to right but able to finger count in right dykes. Respiratory: Respirations are non-labored. Cardiovascular: Normal rate, Regular rhythm. Neurologic: R facial droop with right neglect, L gaze preference; CN otherwise grossly intact. He remains weaker on right but able to support with right hand and can oppose gravity. Full strength on left. . Psychiatric: Cooperative. Results Review Labs reviewed Impression and Plan 80yo M with severe aortic stenosis admitted for TAVR; s/p aortic valve repair on 12/27, post-op course complicated by cardiac arrest with hemorrhagic pericardial effusion, respiratory failure and embolic strokes; he has also been significantly anemic and has required transfusions. MRI brain last week showed scattered bihemispheric and bilateral cerebellar infarcts; he remains with right side weakness, neglect and dysarthria but much improved in the past week. He is on aspirin and statin for stroke prophylaxis; participating well with PT/OT, speech therapy is to evaluate today. He will need inpatient rehab when ready for discharge, good potential for ongoing improvement with aggressive therapy. I will continue to follow intermittently; call with questions. Electronically signed by Olinda Payne Conversion Automobile Mechanic Supervisor Cerner at 11/10/2022 9:31 AM CDT documented in this encounter Plan of Treatment Not on file documented as of this encounter Visit Diagnoses Not on filedocumented in this encounter
--- OUTSIDE RECORDS SUMMARY | 2025-01-05 12:54 | XMS_ITS | Encounter Summary ---
Author Organization [facility] Address [address] [place] [address] Care Team Providers Care Tint Layer Name Role Phone Unavailable Primary Care Provider Unavailabl e Encounter Details Date Type Department Care Team (Late st Contact Info) Description 01/02/2021 Transcribed Document [facility] [place] Family Medicine [address] [place] [address] ProviderMacrina MD [address] [place], [place] [id number] Social History Tobacco Use Types Packs/Day Years Used Date Smoking Tobacco: Never Assessed Sex and Gender Information Value Date Recorded Sex Assigned at Not on file Legal Sex Male 1:13 PM CDT Gender Identity Not on file Sexual Orientation Not on file documented as of this encounter Miscellaneous Notes * Cerner Conversion Note - Historical ProviderMD - 01/02/2021 5:19 PM CDT Spiritual Care Assessment Entered On: 01/02/2021 17:20 EDT Performed On: 01/02/2021 17:19 EDT by LAVERN VALDIVIA Chaplain General Information Initial Visit : No Referred by : follow-up Ministry Provided to : Patient, Family/Significant other Ministry Comment/Summary Points : follow up visit with patient and his , Charu. supportive listening and empathy provided. prayers provided as requested. LAVERN VALDIVIA Chaplain - 01/02/2021 17:19 EDT documented in this encounter Plan of Treatment Not on file documented as of this encounter Visit Diagnoses Not on filedocumented in this encounter
--- OUTSIDE RECORDS SUMMARY | 2025-01-05 12:54 | XMS_ITS | Encounter Summary ---
Author Organization [facility] Address [address] [place] [address] Care Team Providers Care Production Corrugator Name Role Phone Unavailable Primary Care Provider Unavailabl e Encounter Details Date Type Department Care Team (Late st Contact Info) Description 01/07/2021 Transcribed Document [facility] [place] [address] [place] [address] ProviderMacrina MD [address], [place] [id number] Social History Tobacco Use Types Packs/Day Years Used Date Smoking Tobacco: Never Assessed Sex and Gender Information Value Date Recorded Sex Assigned at Not on file Legal Sex Male 1:13 PM CDT Gender Identity Not on file Sexual Orientation Not on file documented as of this encounter Miscellaneous Notes * Cerner Conversion Note - Macrina ProviderMD - 01/07/2021 2:33 PM CDT On Going Discharge Planning Entered On: 01/07/2021 14:34 EDT Performed On: 01/07/2021 14:33 EDT by SOPHY RM Rn-Pharmacist In ChargeLegal Recovery Specialist Progress Note Discharge Arrangements : Patient Post-Acute [...] : Clinical Condition of Patient SOPHY RM Rn-Pharmacist In Charge - 01/07/2021 14:33 EDT Narrative Progress Note Narrative Progress Note : HD#11; ELOS 3; MRR; BOOST 6; POD#11 - Elective TAVR/LVentTear/Cardiac Tamponade; 02=2L; Maxipime/Ancef; IV Bumex; working w/therapy and stood at side of bed; ST - ongoing rec for NPO r/t dysphagia - tx; instrumental 3-4 days; Corpak/TF; DCP anticipate rehab; initial referrals placed thru [facility] and list w/post acute star ratings provided to pt for choicing. SOPHY RM Rn-Pharmacist In Charge - 01/07/2021 14:35 EDT Historical Progress Note : HD#8; ELOS 3; LRR; BOOST 6; POD#8 - Elec TAVR/LVentTear/Cardiac Tamponade - intubated fi02 100; awake/calm/following commands; bronchoscopy scheduled today; SBT; T=101.2; MRI - diffuse scattered bilateral infarcts; Dr. Navarro states during MDR that if pt is unable to successfully wean over weekend will need trach/peg consult on Thursday; continue to follow; will need therapy evaluations when extubated. SOPHY RM Rn-Pharmacist In Charge - 01/04/21 15:16:12 HD#7; ELOS 3; LRR; BOOST 6; POD#7 - Elective TAVR/LVentTear/CardiacTamponade/Arrest - intubated fi02 40/peep 8; SBT x 2 hr; Fent/Precedex gtt; Corpak/TF; Humza CT in place; Neurology following - MRI diffuse scattered bilateral infarcts; pt w/improvement in movement of R side; PT/OT evaluations when extubated; DCP TBD - likely rehab. SOPHY RM, Rn-Pharmacist In Charge - 01/03/21 15:03:09 HD#6; ELOS 3; LRR; BOOST 6; POD #6 - Electiv TAVR/L Vent Tear/Cardiac Tamponode/Arrest - reintubated 01/01; fi02 40; Levo/Fent/Precedex gtt; wean sedation - on SBT 2hr TID; T=99.9; Dr. Navarro states during MDR that pt's spouse aware may need trach/peg; DCP TBD pending progress. SOPHY RM Rn-Pharmacist In Charge - 01/02/21 14:55:12 HD#5; ELOS 3; LRR; BOOST 6; POD #5 - Elective TAVR/L Ventrial Tear/Cardiac Tamponode; extubated on 12/31 required reintubation today fi02 60/peep 8; Precedex/Fent gtt; Corpak/TF; IV Zosyn; CT draining; T=100; DCP TBD pending progress; will need therapy evals when appropriate. SOPHY RM Rn-Pharmacist In Charge - 01/01/21 14:47:57 HD#4; ELOS 3; LRR; POD#4 - Electiv TAVR; L Ventrical Tear; intubated fi02 50; Cardene gtt; Corpak to be placed and TF initiated; SBT today; following commands; Head MRI ordered; possible extubation post MRI; no movement noted on R side; will need PT/OT evaluations when extubated; DCP pending progress - likely rehab. SOPHY RM Rn-Pharmacist In Charge - 12/31/20 14:58:43 DCP TBD - pending progress; OP Cardiac Rehab referral placed thru [facility]. SOPHY RM Rn-Pharmacist In Charge - 12/28/20 12:42:03 SOPHY RM Rn-Pharmacist In Charge - 01/07/2021 14:33 EDT documented in this encounter Plan of Treatment Not on file documented as of this encounter Visit Diagnoses Not on filedocumented in this encounter
--- OUTSIDE RECORDS SUMMARY | 2025-01-05 12:54 | XMS_ITS | Encounter Summary ---
Author Organization [employer] [facility] Address [address] [place] [address] Care Team Providers Care Healthcare Administrative Assistant Name Role Phone Unavailable Primary Care Provider Unavailabl e Encounter Details Date Type Department Care Team (Late st Contact Info) Description 12/27/2020 Transcribed Document [facility] Family Medicine [address] [place] [address] ProviderMacrina MD [address] [place] [address] Social History Tobacco Use Types Packs/Day Years Used Date Smoking Tobacco: Never Assessed Sex and Gender Information Value Date Recorded Sex Assigned at Not on file Legal Sex Male 1:13 PM CDT Gender Identity Not on file Sexual Orientation Not on file documented as of this encounter Miscellaneous Notes * Cerner Conversion Note - Historical ProviderMD - 12/27/2020 6:03 PM CDT Nutrition Assessment Entered On: 12/28/2020 10:36 EDT Performed On: 12/27/2020 12:20 EDT by Tamy Wolff Dietitian Nutrition Assessment Current Nutrition Regimen Comment : 12/28: RD consult rec'd for ERAS. 80yoM POD#1 emergent pericardial window and repair of ventricular tear. Pt remains intubated and sedated-now off pressors. Discussed pt with Pulmonary MD-plans to extubate today. RD to leave TF recs if needed. 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, cardiogenic shock, acute blood loss anemia, metabolic acidosis PMH: severe , nonischemic cardiomyopathy, HTN, colon resection, inguinal hernia repair, herman Labs: Na 151, Cl 118, Alb 2.7, TBil 2.2, AST 141, ALT 85, Phos 1.2, PLT 124 Meds: VitC, statin, senokot, Pepcid, mag sulfate, KPhos, senna Drips: fentanyl, propofol @ 12ml/hr (316kcal), off pressors GI: LBM 12/28, -BS, +NGT Skin: chest incisions; anasarca/2+ edema Diet: NPO Ht: 68 Wt: 65.14kg/143# (admit), 77.3kg (12/28) Wt hx: 141# (11/15/19), 146# (12/03/20) BMI: 22 IBW: 70kg (93% IBW) Est needs: 1600-1800kcal (25-28kcal/kg) 78g PRO (1.2g/kg) Tamy Wolff Dietitian - 12/28/2020 12:19 EDT Nutrition Assessment Reason : Automatic referral Tamy Wolff Dietitian - 12/28/2020 10:36 EDT Nutrition Diagnoses Oral or Nutrition Support Intake : Inadequate oral intake Oral or Nutr Support Intake Related To : resp fxn +vent Oral or Nutr Support Intake Evidenced by : NPO Oral or Nutrition Support Intake Status : Active Tamy Wolff Dietitian - 12/28/2020 11:41 EDT Nutrition Interventions Enteral/Parenteral Nutrition : Enteral/Parenteral nutrition other Tamy Wolff Dietitian - 12/28/2020 11:41 EDT Monitoring/Evaluation Energy Intake : Total energy intake Food Intake : Amount of food Protein Intake : Total protein Weight Status : Weight Maintanence Gastrointestinal Function : Bowel Function Tamy Wolff Dietitian - 12/28/2020 11:41 EDT Nutrition Recommendations Dietitian Recommendations : 1. If able to extubate today, start PO diet as feasible (cardiac diet). RD to provide appropriate ONS. goal: safe PO 2. If unable to extubate, consider placing corpak and starting EN: Osmolite 1.5 @ 20ml/hr AAT to goal @ 45ml/hr (+[id number], 62g pro). FW per MD goal: meet est needs 3. Once propofol off, increase Osmolite 1.5 to goal at 50ml/hr + 1 [id number] daily (provides 1710kcal, 83g PRO). Goal: meet est needs 4. Monitor elytes and replace prn Goal: wnls 5. Obtain wt 2x weekly goal: avoid sig wt changes Risk: High Nutrition Care Level : High Tamy Wolff Dietitian - 12/28/2020 12:19 EDT documented in this encounter Plan of Treatment Not on file documented as of this encounter Visit Diagnoses Not on filedocumented in this encounter
--- OUTSIDE RECORDS SUMMARY | 2025-01-05 12:54 | XMS_ITS | Encounter Summary ---
Author Organization [facility] Address [address] [place] [address] Care Team Providers Care Patient Service Technician Pst Name Role Phone Unavailable Primary Care Provider Unavailabl e Encounter Details Date Type Department Care Team (Late st Contact Info) Description 01/07/2021 Transcribed Document [facility] [place] Family Medicine [facility] [place] [address] ProviderMacrina MD [address] [place] [address] Social History Tobacco Use Types Packs/Day Years Used Date Smoking Tobacco: Never Assessed Sex and Gender Information Value Date Recorded Sex Assigned at Not on file Legal Sex Male 1:13 PM CDT Gender Identity Not on file Sexual Orientation Not on file documented as of this encounter Miscellaneous Notes * Cerner Conversion Note - Macrina ProviderMD - 01/07/2021 7:00 AM CDT Swallow Evaluation Entered On: 01/07/2021 10:25 EDT Performed On: 01/07/2021 9:35 EDT by ANDREIA TITUS MODEL DRESSER General Information Visit Type, MODEL DRESSER : Initial evaluation Patient Orders : Speech Language Pathology Evaluation and Treatment -111 Start: 01/07/21 10:06:00 EDT, Routine, For Speech Language Cognitive Eval and Treat - ANTHONY JACOBO PA Speech Language Pathology Swallow Evaluation and Treatment - Start: 01/07/21 7:00:00 EDT, Routine, For Swallow Eval and Treat -111 ANTHONY JACOBO PA Admission Date : Admission Date/Time: 12/27/20 06:39:00 Medical Chart Reviewed, MODEL DRESSER : Yes Personal Devices : Personal Devices No Devices Recorded Assistive Devices : Assistive Devices No Devices Recorded Active Diagnoses : 12/28/2020 12:00 Anxiety disorder, unspecified 12/28/2020 12:00 Cardiac tamponade 12/28/2020 12:00 Essential (primary) hypertension 12/28/2020 12:00 Gastro-esophageal reflux disease without esophagitis 12/28/2020 12:00 Hemorrhage, not elsewhere classified 12/28/2020 12:00 Hyperlipidemia, unspecified 12/28/2020 12:00 Malignant neoplasm of colon, unspecified 12/28/2020 12:00 Nonrheumatic aortic (valve) stenosis 12/28/2020 12:00 Polyneuropathy, unspecified Therapy Diagnosis, MODEL DRESSER : Overt patterns of oropharyngeal dysphagia. Not appropriate for PO or instrumental exam. Recs: 1. Continue NPO with corpak TF/ meds 2. Limited ice after oral care, with staff only 3. ST to see for dysphagia 4. Instrumental in 3-4 days, or when appropriate 5. Communication evaluation Precautions in Place : Fall prevention measures Previous Swallow Precautions : none in EMR Diet/Intake Prior to Current Admission : regular Diet/Intake During Current Admission : NPO with corpak Multiple Intubations : Yes Intubation Comment, MODEL DRESSER : 12/27-12/31, reintubated 01/01-01/05 Vital Signs RTF : Vitals Temp BP Pulse RR SpO2 FIO2 Date Wt(kg) Wt(lb) 01/07 09:00 ---- 171/80 --- 21 94 2.0L/m 01/07 08:29 ---- ----- --- 16 99 --- 01/07 08:00 ---- 170/77 --- -- --- 2.0L/m 01/07 07:00 ---- 119/59 --- 16 97 2.0L/m 01/07 06:08 ---- ----- --- 36 99 4.0L/m 24 Hr Tmax: No Data Available 36 Hr Tmax: No Data Available Vital Signs are the last 5 in the past 48 hours. Weights display the last 5 within 7 days. Initial Wt: 12/25 65.1 kg 143 lb Respiratory Assessment Comment : nasal 02 ANDREIA TITUS SLP - 01/07/2021 10:07 EDT General Status Patient Received Status, MODEL DRESSER : Sitting edge of bed Patient Left Status, MODEL DRESSER : Long sitting in bed ANDREIA TITUS SLP - 01/07/2021 10:07 EDT Pain Assessment Pain Scaled Used : 0-10 Pain scale Pain Score Pre-Intervention : 5 Pain Comment : pain in his chest. Alerted RN. ANDREIA TITUS, BENJY - 01/07/2021 10:07 EDT Image 1 - Images currently included in the form version of this document have not been included in the text rendition version of the form. Oral Mechanism Dysarthria : Yes Brief Phonation Quality : Hoarse (Comment: mild [ANDREIA TITUS, BENJY - 01/07/2021 10:07 EDT] ) MODEL DRESSER Cough : Weak Facial Appearance: : Asymmetrical, Droop, Right Labial Appearance : Asymmetrical, Droop, right Labial Function : Impaired retraction, right Dental/Orthodontia : Teeth, own Lingual Appearance : Symmetrical Soft Palate (Velum) Appearance : Symmetrical Soft Palate Function : Function intact Hard Palate Appearance/ Structure : Structure intact Mandible Appearance/Structure : Intact Mandibular Function : All function intact ANDREIA TITUS SLP - 01/07/2021 10:07 EDT Bedside Swallow Swallow Outcome BS Swallow : Impaired Head Control BS Swallow : Neutral head position Presentation Style BS Swallow : Clinician Swallow Position BS Swallow : Upright 90 degrees Trunk Control BS Swallow : Upright centered position Consistencies Trialed BS Swallow : Ice chips, Thin by spoon ANDREIA TITUS, BENJY - 01/07/2021 10:07 EDT Swallow Impressions Impressions, BS Swallow : Signs/Symptoms of oral-pharyngeal dysphagia Swallowing Outcome Measures : Functional Oral Intake Scale (FOIS) Functional Oral Intake Scale (FOIS) : Level I Bedside Swallow Overall Impressions : Patient was admitted for elective TAVR performed on 12/27. Post-op, he became hypotensive, bradycardic, and PEA arrested with ROSC after 11 minutes. 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 He is also being treated for: new onset afib, metabolic acidosis, leukocytosis and acute respiratory failure. His PMH is significant for: NICM, HTN, severe aortic stenosis, and HLD. He refused a TAVR 1 year ago, and had an OP aortic valvuloplasty. Patient is awake in bed, with significant dysarthria. His voice is mildly hoarse and his cough is weak (with poor effort suspected). There was no swallow palpated with the first 2 ice presentations, until patient was verbally cued to do so. Wet vocal quality was noted. Consistent swallow observed thereafter with ice and water, though with questionable laryngeal elevation. Anterior loss on the right with very small amount of water via spoon. Patient is not ready for PO or instrumental. Will initiate tx and consider instrumental in a few days, or when appropriate. Patient will also need communication evaluation, when schedule allows. D/w patient, as well as RN. Will follow. ANDREIA TITUS SLP - 01/07/2021 10:07 EDT Swallow Recommendations Recommended Diet Type, SwRec : Non-oral feeding, NPO, OK for ice (Comment: limited and with staff only, after oral care [ANDREIA TITUS SLP - 01/07/2021 10:07 EDT] ) Recommended Med Present, SwRec : Non-oral Recommended Exam, Sw Rec : FEES Repeat Swallow Exam Timeframe : 1-3 days ANDREIA TITUS SLP - 01/07/2021 10:07 EDT Therapy Indication Assessment MODEL DRESSER Indicated : Yes MODEL DRESSER Problem List : Impaired, Swallowing Potential Barriers to MODEL DRESSER : Acuity of illness, Cognitive deficit MODEL DRESSER Rehabilitation Potential : Good ANDREIA TITUS SLP - 01/07/2021 10:07 EDT Swallow Plan/Goals Treatment Frequency, MODEL DRESSER : 5 times per wk Treatment Plan Est w/Pt/Caregvr, Swallow : Yes Treatment Duration, MODEL DRESSER : Two weeks Therapy at Next Level of Care, MODEL DRESSER : Acute inpatient rehab, [facility] facility ANDREIA TITUS SLP - 01/07/2021 10:07 EDT Swallow LTG Grid MODEL DRESSER Embedded Developer Goal #1 MODEL DRESSER Longterm Goal #2 Swallow LTG : Establish safe oral diet without aspiration Improve swallowing function for oral intake Status : Initial Initial ANDREIA TITUS SLP - 01/07/2021 10:07 EDT ANDREIA TITUS SLP - 01/07/2021 10:07 EDT Swallow Goals Grid Goal #1 Goal #2 Goal #3 Swallow STG : Other: consistent swallow with ice x15 Improve pharyngeal strength Other: instrumental exam Related To : Aspiration prevention, Return to oral intake Aspiration prevention, Return to oral intake Aspiration prevention, Return to oral intake Date to Meet : 01/10/2021 EDT 01/10/2021 EDT 01/10/2021 EDT Status : Initial goal Initial goal Initial goal ANDREIA TITUS SLP - 01/07/2021 10:07 EDT ANDREIA TITUS SLP - 01/07/2021 10:07 EDT ANDREIA TITUS SLP - 01/07/2021 10:07 EDT Education Barriers To Learning : Acuity of Illness, Cognitive deficit Individuals Taught : Patient Readiness to Learn : Cooperative Readiness to Learn : Explanation ANDREIA TITUS SLP - 01/07/2021 10:07 EDT MODEL DRESSER Education Assessment Grid 1 Aspiration : Needs further teaching, Verbalizes understanding Dysphagia : Needs further teaching, Verbalizes understanding Dysphagia, Effects of Impairment : Needs further teaching, Verbalizes understanding Ice Chips : Verbalizes understanding, Needs further teaching Non-Oral Nutrition : Verbalizes understanding, Needs further teaching NPO : Verbalizes understanding, Needs further teaching Oral Care : Verbalizes understanding, Needs further teaching ANDREIA TITUS SLP - 01/07/2021 10:07 EDT MODEL DRESSER Education Assessment Grid 2 Treatment Plan : Verbalizes understanding, Needs further teaching ANDREIA TITUS SLP - 01/07/2021 10:[address] [facility] Charges Evaluation Swallowing Function : 1 ANDREIA TITUS SLP - 01/07/2021 10:07 EDT Anticipated Discharge Needs, MODEL DRESSER Anticipated Discharge to : Extended Care Facility, Rehab, high intensity Recommend Continued Therapy at Discharge : No ANDREIA TITUS SLP - 01/07/2021 10:07 EDT documented in this encounter Plan of Treatment Not on file documented as of this encounter Visit Diagnoses Not on filedocumented in this encounter
--- OUTSIDE RECORDS SUMMARY | 2025-01-05 12:54 | XMS_ITS | Encounter Summary ---
Author Organization [facility] Address [address] [place] [address] Care Team Providers Care Transmission Line Engineer Name Role Phone Unavailable Primary Care Provider Unavailabl e Encounter Details Date Type Department Care Team (Late st Contact Info) Description 12/27/2020 Transcribed Document [facility] [place] [facility] [place] [address] ProviderMacrina MD [address] [place] [address] Social History Tobacco Use Types Packs/Day Years Used Date Smoking Tobacco: Never Assessed Sex and Gender Information Value Date Recorded Sex Assigned at Not on file Legal Sex Male 1:13 PM CDT Gender Identity Not on file Sexual Orientation Not on file documented as of this encounter Miscellaneous Notes * Cerner Conversion Note - Macrina Cordova MD - 12/27/2020 12:15 PM CDT DATE OF PROCEDURE: 12/27/2020 SURGEON: Cuauhtemoc Gresham MD PRIMARY CARE PHYSICIAN: Dr. Robert Batista. PREOPERATIVE DIAGNOSES: 1. Cardiac tamponade. 2. Status post transcatheter aortic valve implantation. POSTOPERATIVE DIAGNOSES: 1. Cardiac tamponade. 2. Status post transcatheter aortic valve implantation. PROCEDURE: Emergent subxiphoid pericardial window with drainage of pericardial effusion. ANESTHESIA: General endotracheal anesthesia. PLASTICS NURSE: Sandi Gilmore physician library media assistant. INDICATION FOR PROCEDURE: Mr. Francesco Adorno is an 80-year-old male, who underwent transcatheter aortic valve implantation using a 29 mm Vivas ROC 3 Ultra bioprosthetic valve. Post-procedure, the patient developed severe hypotension, requiring CPR. Echocardiogram at that time revealed pericardial effusion. A percutaneous drain was placed in the pericardium with response of the patient to the drainage of the fluid. The left ventriculogram revealed evidence of a small tear and hole from the left ventricular apex. The patient initially stabilized and was taken to the intensive care unit. However, in the intensive care unit, the patient again developed an arrest, requiring CPR and resuscitation according to ACLS protocol. This revealed that there was evidence of clotting of the catheter. Drainage was then performed. At this point, we decided to take the patient emergently to the operating room for subxiphoid pericardial window and possible sternotomy for ongoing tamponade and bleeding. DESCRIPTION OF PROCEDURE: The patient was emergently brought to the operating room and was placed in supine position. Endotracheal tubing of the patient was performed in the intensive care unit. The entire chest, abdomen, and lower extremity to the knee were prepped and draped in sterile fashion. Time-out was called. Patient identity and the procedure were confirmed. General anesthesia was then induced. At this point, approximately 4 cm subxiphoid incision was made. The incision was carried down through the subcutaneous tissue. The dissection was continued along the linea alba. There appeared to be opening to the peritoneal cavity. The liver was visualized. It appeared to be intact. Following that, blunt dissection behind the sternum was performed and the pericardium was identified. Using electrocautery, opening was made in the pericardium and was extended laterally towards the apex of the heart. This was performed along the diaphragm. Bloody fluid from the pericardial sac was then drained. There was improvement in the blood pressure. The heavy lap pads were then placed into the pericardial sac towards the apex of the heart. Meanwhile, resuscitation was continued with transfusion of the blood as well as transfusion of the blood products since the patient had lost significant amount of blood. Manual compression was continued on the ventricle with a heavy pickup. This resulted in complete resolution of the bleeding. The patient did not have any evidence of any active bleeding anymore. Echocardiogram did not reveal any fluid collection anymore. At this point, a 36-Georgian right angle chest tube was placed in the posterior aspect of the pericardium and was brought out through a separate skin site and was secured. The patient meanwhile was also transfused with 10 units of cryo, two 6-pack of platelets, and 2 units of FFP to make sure that hemostasis was continued. It is important to mention that the patient was loaded with Plavix prior to the transcatheter aortic valve replacement. When we were content with the hemostasis, fascia was then approximated using 0 PDS. Subcutaneous tissue was closed using 2-0 Vicryl and skin was approximated in subcuticular stitches. /[id number] Cuauhtemoc Gresham MD HRM/AQ / HRM / MODL /[id number] CC: MD Dr. Robert Gonzales MD Electronically signed by Interface, [id number] Conversion Cast Iron Drain Pipe Layer Cerner at 11/10/2022 9:09 AM CDT documented in this encounter Plan of Treatment Not on file documented as of this encounter Visit Diagnoses Not on filedocumented in this encounter
--- OUTSIDE RECORDS SUMMARY | 2025-01-05 12:54 | XMS_ITS | Encounter Summary ---
Author Organization [facility] Address [address] [place] [address] Care Team Providers Care Cascara Bark Cutter Name Role Phone Unavailable Primary Care Provider Unavailabl e Encounter Details Date Type Department Care Team (Late st Contact Info) Description 01/02/2021 Transcribed Document [facility] [place] Family Medicine [address] [place] [address] ProviderMacrina MD [address] [place], [place] [address] Social History Tobacco Use Types Packs/Day Years Used Date Smoking Tobacco: Never Assessed Sex and Gender Information Value Date Recorded Sex Assigned at Not on file Legal Sex Male 1:13 PM CDT Gender Identity Not on file Sexual Orientation Not on file documented as of this encounter Miscellaneous Notes * Cerner Conversion Note - Macrina ProviderMD - 01/02/2021 10:[address] [facility] Charges Entered On: 01/02/2021 12:48 EDT Performed On: 01/02/2021 10:13 EDT by Lauren Newberry OCCUPATIONAL THERAPIST NON-EXEMPT [place] [facility] Charges Screen For Setter Molding And Coremaking Machines : 1 Lauren Newberry OCCUPATIONAL THERAPIST NON-EXEMPT - 01/02/2021 12:48 EDT documented in this encounter Plan of Treatment Not on file documented as of this encounter Visit Diagnoses Not on filedocumented in this encounter
--- OUTSIDE RECORDS SUMMARY | 2025-01-05 12:54 | XMS_ITS | Encounter Summary ---
Author Organization [facility] Address [address] [place] [address] Care Team Providers Care Secretary Of State Name Role Phone Unavailable Primary Care Provider Unavailabl e Encounter Details Date Type Department Care Team (Late st Contact Info) Description 12/29/2020 Transcribed Document [facility] Family Medicine [address] [place] [address] ProviderMacrina MD [address] [place] [address] Social History Tobacco Use Types Packs/Day Years Used Date Smoking Tobacco: Never Assessed Sex and Gender Information Value Date Recorded Sex Assigned at Not on file Legal Sex Male 1:13 PM CDT Gender Identity Not on file Sexual Orientation Not on file documented as of this encounter Miscellaneous Notes * Cerner Conversion Note - Macrina Cordova MD - 12/29/2020 8:39 AM CDT Patient: JOSE ADORNO Age: 80 years Sex: Male : 1940 Associated Diagnoses: None Author: EMEKA MADERA MD-CAT Basic Information POD: 2 Present at bedside: Medical personnel. Health Status Allergies: Allergic Reactions (All) No Known Allergies Physical Examination Intake and Output I/O: 1344 / 2830 Urine Output: 1925 ml / [address]: 320 ml / 12 hrs, Drip: Levophed: 0.03 VS/Measurements Vitals Signs (last 24 hrs) Last Charted Minimum Maximum Mon HR 70 (DEC 29 08:05) 60 (DEC 28 17:00) 84 (DEC 29 05:00) Resp Rate 14 (DEC 29 08:05) 14 (DEC 28 14:00) 16 (DEC 28 09:00) SBP 114 (DEC 29 06:00) L 77 (DEC 28 12:00) H 150 (DEC 29 05:00) DBP L 59 (DEC 29 06:00) L 45 (DEC 28 12:00) 70 (DEC 29 05:00) MAP 69 (DEC 29 06:00) 57 (DEC 28 11:03) 101 (DEC 29 05:00) SpO2 99 (DEC 29 08:05) L 85 (DEC 28 11:03) 100 (DEC 28 09:00) General: No acute distress. Neck: Supple, No jugular venous distention. Respiratory: Lungs are clear to auscultation. Cardiovascular: Normal rate, Regular rhythm. Gastrointestinal: Soft, Non-tender. Musculoskeletal: Lower extremity exam: warm.. Integumentary: Warm, Dry, Sternal Wound: Clean/Dry/intact. Review / Management Results review: DEC 29 01:15 145 H 114 17 / H 114 3.8 29 1.00 \ DEC 29 01:15 \ L 8.3 / H 10.8 L 96 / L 24.4 \. Impression and Plan S/P TAVR 29 Andrew 3 Ultra S/P pericardial Window S/P emergent repair of L:V tear Plan: Wean sedation. CT in the right chest. Hopefully extubate soon. documented in this encounter Plan of Treatment Not on file documented as of this encounter Visit Diagnoses Not on filedocumented in this encounter
--- OUTSIDE RECORDS SUMMARY | 2025-01-05 12:54 | XMS_ITS | Encounter Summary ---
Author Organization [facility] Address [address] [place] [address] Care Team Providers Care Display Designer Outside Name Role Phone Unavailable Primary Care Provider Unavailabl e Encounter Details Date Type Department Care Team (Late st Contact Info) Description 12/27/2020 Transcribed Document [facility] [place] [address] [place] [address] ProviderMacrina MD [address] [place] [address] Social History Tobacco Use Types Packs/Day Years Used Date Smoking Tobacco: Never Assessed Sex and Gender Information Value Date Recorded Sex Assigned at Not on file Legal Sex Male 1:13 PM CDT Gender Identity Not on file Sexual Orientation Not on file documented as of this encounter Miscellaneous Notes * Cerner Conversion Note - Historical ProviderMD - 12/27/2020 6:03 PM CDT Height and Weight, Routine Entered On: 12/27/2020 22:25 EDT Performed On: 12/27/2020 18:03 EDT by Manny Spencer RN Height and Weight, Routine Routine Weight Source : Bed scale Routine Weight Entry Format : Metric Routine Weight, Kilograms : 65 kg(Converted to: 143 lb 5 oz) Routine Weight Calculation : 65 kg Height Source : Measured Height Entry Format : [place] Height, Feet : 0 ft Height, Inches : 67.75 Inch Clinical Height : 172.09 cm Body Surface Area (BSA), Routine : 1.77 m2 Body Mass Index (BMI), Routine : 21.95 kg/m2 Manny Spencer RN - 12/27/2020 22:24 EDT documented in this encounter Plan of Treatment Not on file documented as of this encounter Visit Diagnoses Not on filedocumented in this encounter
--- OUTSIDE RECORDS SUMMARY | 2025-01-05 12:54 | XMS_ITS | Encounter Summary ---
Author Organization [facility] Address [address] [place] [id number] Care Team Providers Care Beef Lugger Name Role Phone Unavailable Primary Care Provider Unavailabl e Encounter Details Date Type Department Care Team (Late st Contact Info) Description 12/27/2020 Transcribed Document [facility] Family Medicine [address] [place] [address] ProviderMacrina MD [address] [place] [address] Social History Tobacco Use Types Packs/Day Years Used Date Smoking Tobacco: Never Assessed Sex and Gender Information Value Date Recorded Sex Assigned at Not on file Legal Sex Male 1:13 PM CDT Gender Identity Not on file Sexual Orientation Not on file documented as of this encounter Miscellaneous Notes * Cerner Conversion Note - Macrina ProviderMD - 12/27/2020 11:37 AM CDT [facility] Main OR IntraOp Summary Primary Physician: EMEKA MADERA MD-CAT Finalized Date/Time: 12/31/20 11:24:25 Pt. Name: JOSE ADORNO Ade /Sex: 1940 Male Med Rec #: [id number] Physician: DANYELLE WALTERS MD-CAR Financial #: [id number] Pt. Type: I Room/Bed: [facility] Admit/Disch: 12/27/20 06:39:00 - Institution: [facility] IntraOp Case Attendance Entry 1 Entry 2 Entry 3 Case Attendee EMEKA MADERA BURBERRY, KEITH, MD-RACHID FAULKNER PA MD-CAT Role Performed Surgeon/Proceduralist, Anesthesiologist Physician client services assistant First Time In 12/27/20 11:19:00 12/27/20 11:19:00 12/27/20 11:19:00 Time Out 12/27/20 12:43:00 12/27/20 12:43:00 12/27/20 12:43:00 Procedure Pericardial Window Pericardial Window Pericardial Window Other Attendee Superficial Wound Closed By: Last Modified By: Leonora Joy RN Proffitt, Debbie, Leonora Davis RN 12/27/20 12:45:31 12/27/20 12:45:31 12/27/20 12:45:31 Entry 4 Entry 5 Entry 6 Case Attendee JESSY GALLO SKIDMORE, ROY Proffitt, Debbie, SHYAM Vp Celebrity Services Role Performed Vp Celebrity Services Scrub, First Port Drier, First Time In 12/27/20 11:19:00 12/27/20 11:19:00 12/27/20 11:19:00 Time Out 12/27/20 12:43:00 12/27/20 12:43:00 12/27/20 12:43:00 Procedure Pericardial Window Pericardial Window Pericardial Window Other Attendee Superficial Wound Closed By: Last Modified By: Leonora Joy RN Proffitt, Debbie, Leonora Davis RN 12/27/20 12:45:31 12/27/20 12:45:31 12/27/20 12:45:31 Entry 7 Case Attendee SHAYLA COWAN RN Role Performed Port Drier, Second Time In 12/27/20 11:19:00 Time Out 12/27/20 12:43:00 Procedure Pericardial Window Other Attendee Superficial Wound Closed By: Last Modified By: Leonora Joy RN 12/27/20 12:45:31 [facility] IntraOp Case Attendance Audit 12/27/20 12:45:31 Liquor Merchant: BINADE Modifier: PROFITDE 1 <+> Time Out 1 <*> Procedure Pericardial Window 2 <+> Time Out 2 <*> Procedure Pericardial Window 3 <+> Time Out 3 <*> Procedure Pericardial Window 4 <+> Time Out 4 <*> Procedure Pericardial Window 5 <+> Time Out 5 <*> Procedure Pericardial Window 6 <+> Time Out 6 <*> Procedure Pericardial Window 7 <+> Time Out 7 <*> Procedure Pericardial Window 12/27/20 12:18:42 Liquor Merchant: PROFITDE Modifier: PROFITDE 1 <*> Case Attendee EMEKA MADERA MD-CAT 1 <*> Role Performed Surgeon/Proceduralist, First 1 <*> Time In 12/27/20 11:19:00 1 <*> Procedure Pericardial Window 2 <*> Case Attendee JEISON CRUZ MD-ANS 2 <*> Role Performed Anesthesiologist 2 <*> Time In 12/27/20 11:19:00 2 <*> Procedure Pericardial Window 3 <*> Case Attendee RACHID BRUMFIELD PA 3 <*> Role Performed Physician client services assistant 3 <*> Time In 12/27/20 11:19:00 3 <*> Procedure Pericardial Window 4 <*> Case Attendee JESSY GALLO, Vp Celebrity Services 4 <*> Role Performed Vp Celebrity Services 4 <*> Time In 12/27/20 11:19:00 4 <*> Procedure Pericardial Window 5 <*> Case Attendee TAMEKA REDD 5 <*> Role Performed Scrub, First 5 <*> Time In 12/27/20 11:19:00 5 <*> Procedure Pericardial Window 6 <*> Case Attendee Leonora Joy, RN 6 <*> Role Performed Port Drier, First 6 <*> Time In 12/27/20 11:19:00 6 <*> Procedure Pericardial Window 7 <*> Case Attendee SHAYLA COWAN, RN 7 <*> Role Performed Port Drier, Second 7 <*> Time In 12/27/20 11:19:00 7 <*> Procedure Pericardial Window Entry 8 was deleted. Higher numbered entries shifted one position to fill the gap. <-> 8 Case Attendee LUNA YUN, ST <-> 8 Role Performed Scrub, First <-> 8 Time In 12/27/20 12:05:00 <-> 8 Procedure Pericardial Window 12/27/20 12:09:35 Liquor Merchant: PROFITDE Modifier: PROFITDE <+> 8 Case Attendee <+> 8 Role Performed <+> 8 Time In <+> 8 Procedure 12/27/20 12:08:20 Liquor Merchant: PROFITDE Modifier: PROFITDE <+> 1 Procedure 2 <*> Procedure Pericardial Window 3 <*> Procedure Pericardial Window 4 <*> Procedure Pericardial Window 5 <*> Procedure Pericardial Window 6 <*> Procedure Pericardial Window 7 <*> Procedure Pericardial Window [facility] IntraOp Case Times Entry 1 Patient In Room Time 12/27/20 11:19:00 Out Room Time 12/27/20 12:43:00 Anesthesia Start Time 12/27/20 11:19:00 Stop Time 12/27/20 12:43:00 Anesthesia Ready 12/27/20 11:19:00 Surgery / Procedure Times Start Time 12/27/20 11:37:00 Stop Time 12/27/20 12:11:00 Last Modified By: Leonora Joy RN 12/27/20 11:45:14 [facility] IntraOp Case Times Audit 12/27/20 12:45:19 Liquor Merchant: PROFITDE Modifier: PROFITDE <+> 1 Out Room Time <+> 1 Stop Time 12/27/20 12:14:28 Liquor Merchant: PROFITDE Modifier: PROFITDE <+> 1 Stop Time [facility] IntraOp Cautery Entry 1 ESU Identification Cautery Type Monopolar ESU ID Number [id number] ID Type Hospital Number Cautery Settings Cut Setting 40 Coag Setting 60 Blend Setting 2 ESU Grounding Pad Ground Pad Type Reusable electrode pad Grounding Pad Site Right Buttock Grounding Pad SHAYLA COWAN RN Applied By Grounding Pad Site Warm, dry and intact Skin Condition Before Cautery Grounding Pad Site Unchanged Skin Condition After Cautery Last Modified By: Leonora Joy RN 12/27/20 11:52:29 [facility] IntraOp Communication Entry 1 Communication To Other Comment CTVU INFORMED OF START Communication By Leonora Joy RN Date and Time 12/27/20 11:37:00 Last Modified By: Leonora Joy RN 12/27/20 11:53:44 [facility] IntraOp Counts Verification Entry 1 Procedure Pericardial Window Count Info Count Type Sponge, Sharps, Instrument, Miscellaneous Counts Verification Baseline/pre-procedure Sequence Count Results Not Applicable Counts Performed By Count Performed By TAMEKA REDD (Scrub) Count Performed By Leonora Joy RN (RN) Last Modified By: Leonora Joy RN 12/27/20 11:51:53 [facility] IntraOp Counts Final Entry 1 Procedure Pericardial Window Final Count Info Count Type Sponge, Sharps, Miscellaneous Counts Verification Skin Closure/end of Sequence procedure Count Results Correct, surgeon notified Counts Performed By Count Performed By TAMEKA REDD (Scrub) Count Performed By Leonora Joy RN (RN) Last Modified By: Leonora Joy RN 12/27/20 12:07:36 [facility] IntraOp Cultures and Spec Summary Entry 1 Cultrures and Specimens Specimen Ordered: Yes Test(s) Other: Segment text Requested/Final Disposition Last Modified By: Leonora Joy RN 12/27/20 11:53:11 General Comments: COAGS TO LAB [facility] IntraOp Departure from OR Entry 1 Integumentary Assessment Integumentary WDL with patient Assessment WDL specific variances Patient's Normal PRE-EXISTING BRUISING Integumentary AND OPSITE AND SURGICAL Variance(s) INTERVENTION SITES Transfer/Handoff Transfer to PACU Phase I Handoff Method Bedside/Face to face Post-op Transport Bed (including Via specialty) Patient Transport JEISON CRUZ, Accompanied by CHAPO EDOUARD JOSEFINA, RN Transfer/Handoff RETURNED TO CTVU 16 Comments Last Modified By: Leonora Joy RN 12/27/20 12:10:08 [facility] IntraOp Departure from OR Audit 12/27/20 12:48:49 Liquor Merchant: PROFITDE Modifier: PROFITDE 1 <*> Patient Transport Accompanied by RACHID BRUMFIELD PA 12/27/20 12:43:55 Liquor Merchant: PROFITDE Modifier: PROFITDE 1 <*> Patient's Normal Integumentary OPSITE AND SURGICAL INTERVENTION SITES Variance(s) 1 <+> Post-op Transport Via [facility] IntraOp Drains and Tubes Entry 1 Device Type Chest Tube Size 36 FR. RIGHT ANGLED Drain/Tube Activity Inserted, Tube secured/stabilized Drain/Tube Suction Continuous low Drain/Tube Drainage Red Device Location STERNUM Method of Drainage Continuous suction Chest Tubes Water-Seal 20 cm suction Connectivity Tube Dressing Dry, Intact Condition Last Modified By: Leonora Joy RN 12/27/20 12:09:13 [facility] IntraOp Dressing and Packing Entry 1 Type Dressing Location STERNUM Wound Dressing Item Skin Closure Glue Tape Type Paper Applied By RACHID BRUMFIELD PA Other Comments TEGADECLAUDIA, COAVADERM Last Modified By: Leonora Joy RN 12/27/20 12:08:16 [facility] IntraOp Fire Risk Assessment Entry 1 Fire Info Surgical Site or 0- No Incision Above the Xyphoid Open O2 Source 1- Yes (Mask or Cannula) Available Ignition 1- Yes (ESU, Laser, Light Source) Fire Risk 2 Assessment Score Fire Score Fire Risk Yes Assessment Complete Fire Risk Leonora Joy RN Assessment Verified By Fire Risk 12/27/20 11:19:00 Assessment Verified Date/Time Fire Risk Standard Fire Yes Safety Precautions Followed Last Modified By: Leonora Joy RN 12/27/20 11:52:40 [facility] IntraOp 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 Case Information OR OR 14 [facility] Case Level 1 Room Verified Yes Wound Class I - Clean Specialty Cardio Thoracic Anesthesia Type General ASA Class 4E Diagnosis Preop Diagnosis CARDIAC TAMPONADE Postop Same As Preop Yes Postop Diagnosis CARDIAC TAMPONADE Last Modified By: Leonora Joy RN 12/27/20 12:08:50 [facility] IntraOp General Case Data Audit 12/27/20 12:08:50 Liquor Merchant: ELVIRA Modifier: PROFITDE <+> 1 ASA Class <+> 1 Preop Diagnosis <+> 1 Postop Diagnosis 12/27/20 11:54:29 Liquor Merchant: PROFITDE Modifier: PROFITDE 1 <*> OR Add-On 02 [facility] 1 <+> Anesthesia Type 1 <+> Postop Same As Preop 1 <+> Room Verified [facility] IntraOp Intraoperative Assessment Entry 1 Handoff Method Online nursing summary Valid History / Yes Physical in Chart Preoperative Yes Checklist Reviewed/Evaluated Allergies Reviewed Yes Patient is Latex No Sensitive Isolation Not applicable Precautions Noted Level of WDL with patient Consciousness (WDL specific variances = Alert, Oriented to Person, Place, and Time) Skin Assessment Yes Verified Present Upon Drain, Intubated, IVs, Arrival to OR Arterial line, ECG monitored, Oxygen Last Modified By: Leonora Joy RN 12/27/20 11:57:17 [facility] IntraOp Intraoperative Assessment Audit 12/27/20 12:21:20 Liquor Merchant: PROFITDE Modifier: PROFITDE 1 <*> Level of Consciousness (WDL = WDL Alert, Oriented to Person, Place, and Time) 1 <*> Present Upon Arrival to OR IVs [facility] IntraOp Intraoperative Equipment Entry 1 Type Equipment Equipment Intraop Monitoring Electrocardiogram Five lead placement (ECG) Electrode Placement Blood Pressure Non-Invasive BP Device Source Blood Pressure Arterial Location Pulse Oximeter Hand, right Probe Site Antiembolic Devices Scopes Photo/Video Documentation Last Modified By: Leonora Joy RN 12/27/20 11:57:59 [facility] IntraOp Patient Positioning Entry 1 Procedure Pericardial Window Body Position Supine Left Arm Position Tucked and padded at side Right Arm Position Tucked and padded at side Left Leg Position Uncrossed, parallel Right Leg Position Uncrossed, parallel Feet Uncrossed Yes Pressure Points Yes Checked Positioning Devices Head Rest, Pad, Arm, Pad, Heel, Safety Strap, Thighs Positioned By JEISON CRUZ MD-ANS, Leonora Joy RN, SHAYLA COWAN RN, EMEKA MADERA MD-CAT Position Verified Positioning Yes Verified by Anesthesia Positioning Yes Verified by Surgeon Last Modified By: Leonora Joy RN 12/27/20 12:10:24 [facility] IntraOp Sign In Entry 1 Patient, Site, Yes Procedure Identified Surgical Consent Yes Confirmed Relevant Surgical Yes Documents Available Surgical Site N/A Marked by person performing procedure Anesthesia Machine Yes Check Completed Medication Checks Yes Completed Allergies Yes Airway Difficult Yes Airway/Aspiration Risk Difficult Yes Airway/Aspiration Intervention Equipment Available Blood Loss Risk Yes Blood Loss Yes Intervention Equipment Prepared and Ready Blood Identifiers Yes Verified Per Policy Hypothermia Risk Yes Warming Measures Yes Taken Last Modified By: Leonora Joy RN 12/27/20 11:54:54 [facility] IntraOp Sign Out Entry 1 RN Confirmation Surgical Yes Procedure(s) Identified Instrument, Sponge Yes and Sharps Counts Correct/Documented Equipment Problems N/A Documented Specimen Labeled N/A Correctly Urinary Catheter Yes Documented in IView Eason Patient Yes Recovery Concerns Reviewed with Anesthesia Provider, Surgeon and RN Eason Patient Yes Management Concerns Reviewed with Anesthesia Provider, Surgeon and RN Safety Checklist Yes Elements Complete? RN Sign Out Leonora Joy RN Signature RN Sign Out 12/27/20 12:45:00 Signature Date/Time Plan of Care Outcome - Fire Risk OUTCOME STATEMENT: Goal met Patient is free from injury related to surgical fire Plan of Care Outcome - Pt Positioning OUTCOME STATEMENT: Goal met Absence of signs and symptoms of positioning injury. Plan of Care Outcome - Skin Prep OUTCOME STATEMENT: Goal met Intraoperative care is consistent with measures to prevent infection Plan of Care Outcome - Xray/Images OUTCOME STATEMENT: N/A Absence of observable signs or symptoms of radiation injury Plan of Care Outcome - Counts OUTCOME STATEMENT: Goal met Absence of signs and symptoms of injury related to extraneous objects Last Modified By: Leonora Joy RN 12/27/20 12:45:47 [facility] IntraOp Skin Prep Entry 1 Procedure Pericardial Window Prescribed Yes Pre-Surgical Prep Completed Prep Area CHIN TO UMBILICUS Intraop Prep Integumentary WDL with patient Assessment WDL specific variances WDL Patient PRE-EXISTING B RUISING Exceptions ON UPPER CHEST SCATTERED APPROXIMATELY 5 CM BY 4 CM, AND LEFT ARM UPPER AREA Prep Agents Chloraprep Prep by SHAYLA COWAN RN Hair Removal Last Modified By: Leonora Joy RN 12/27/20 12:22:20 [facility] IntraOp Skin Prep Audit 12/27/20 12:22:20 Liquor Merchant: PROFITDE Modifier: PROFITDE 1 <*> Procedure Pericardial Window 1 <*> Integumentary Assessment WDL WDL 1 <+> WDL Patient Exceptions [facility] IntraOp Surgical Procedures Entry 1 Procedure Pericardial Window Additional PERICARDIAL WINDOW Procedure Description Primary Procedure Yes Primary Surgeon EMEKA MADERA MD-CAT Start 12/27/20 11:37:00 Stop 12/27/20 12:11:00 Anesthesia Type General Specialty Cardio Thoracic Wound Class I - Clean Last Modified By: Leonora Joy RN 12/27/20 12:08:19 [facility] IntraOp Surgical Procedures Audit 12/27/20 12:45:23 Liquor Merchant: PROFITDE Modifier: PROFITDE <+> 1 Stop 12/27/20 12:10:52 Liquor Merchant: PROFITDE Modifier: PROFITDE 1 <*> Procedure Pericardial Window 1 <*> Additional Procedure Description (PERICARDIAL WINDOW, POSS STERNOTOMY) [facility] IntraOp Temp Regulation Devices Entry 1 Temp Regulation Temperature Warm blankets, Warm Regulation Device blankets Temperature Full body Regulation Site Temperature Leonora Jyo RN Regulation Device Applied by Temperature ON ARRIVAL AND Regulation Comment DEPARTURE FROM THE O.R. Last Modified By: Leonora Joy RN 12/27/20 12:06:51 [facility] IntraOP Time Out Entry 1 Procedure to be Pericardial Window Performed Time Out Time Out Pause Time 12/27/20 11:37:00 All activity Yes suspended (unless life threatening emergency) Team Verbally Correct patient Confirms Information identity, Consent form is present and accurate, Agreement on the procedure to be done, Correct patient position, Confirm antibiotics have been administered, Confirm the skin prep has dried, Confirm prosthesis/implant/devic e is present, Performed in location of procedure after prepped/draped, Performed before each procedure if multiple procedures, Reconcile problems if responses among team members differ Time Out Comment DR. CRUZ STATED NO NEED FOR ADDITIONAL ANTIBIOTIC, ALREADY RECEIVED THIS MORNING; EMERGENCY NOW Antibiotic N/A Prophylaxis Administered Or In Progress Within the Last 60 Minutes Beta Shasta N/A Administered Venous N/A Thromboembolism Prophylaxis Required Anticipated Critical Events Surgeon None expected Last Modified By: Leonora Joy RN 12/27/20 12:12:52 [facility] IntraOP Time Out Audit 12/27/20 12:12:52 Liquor Merchant: PROFITDE Modifier: PROFITDE 1 <*> Procedure to be Performed Pericardial Window 1 <*> Time Out Comment DR. CRUZ STATED NO NEED FOR ADDITIONAL ANTIBIOTIC, ALREADY RECEIVED THIS MORNING 12/27/20 11:57:30 Liquor Merchant: PROFITDE Modifier: PROFITDE 1 <*> Beta Shasta Administered Yes 1 <*> Procedure to be Performed Pericardial Window Case Comments <None> Finalized By: TERRIE LOOMIS Document Signatures Signed By: Leonora Joy RN 12/27/20 12:48 TERRIE LOOMIS 12/31/20 11:24 Unfinalized History Date/Time Username Reason for Unfinalizing Freetext Reason for Unfinalizing 12/31/20 11:21 KOMAL Correct Billing Electronically signed by [facility] Conversion Photography Coordinator Cerner at 11/10/2022 9:23 AM CDT documented in this encounter Plan of Treatment Not on file documented as of this encounter Visit Diagnoses Not on filedocumented in this encounter
--- OUTSIDE RECORDS SUMMARY | 2025-01-05 12:54 | XMS_ITS | Encounter Summary ---
Author Organization [facility] Address [address] [place] [address] Care Team Providers Care Marketing Teacher Name Role Phone Unavailable Primary Care Provider Unavailabl e Encounter Details Date Type Department Care Team (Late st Contact Info) Description 12/29/2020 Transcribed Document [facility] Family Medicine [address] [place] [address] ProviderMacrina MD [address] [place] [address] Social History Tobacco Use Types Packs/Day Years Used Date Smoking Tobacco: Never Assessed Sex and Gender Information Value Date Recorded Sex Assigned at Not on file Legal Sex Male 1:13 PM CDT Gender Identity Not on file Sexual Orientation Not on file documented as of this encounter Miscellaneous Notes * Cerner Conversion Note - Historical ProviderMD - 12/29/2020 12:13 PM CDT Clinical Dietitian Note Entered On: 12/29/2020 12:13 EDT Performed On: 12/29/2020 12:13 EDT by Alexa Dukes Dietitiyelitza Clinical Dietitian Note Clinical Dietitian Note : 12/29: RD check on. Pt remains intubated; sedation turned off for extubation but RN reports pt became unresponsive and waiting for MD to assess. RN aware TF recs available if pt remains on vent or not appropriate for PO. Drips: levo @ 0.03 mcg/kg/min (weaning), D5W @ 50 ml/hr (204 kcal) Est needs: 1600-1800kcal (25-28kcal/kg); 78g PRO (1.2g/kg) Dietitian Recommendations : 1. If able to extubate today, start PO diet as feasible (cardiac diet). RD to provide appropriate ONS. goal: safe PO 2. If unable to extubate, initiate EN: Osmolite 1.5 @ 20 ml/hr AAT to goal at 50ml/hr + 1 [id number] daily (provides 1710kcal, 83g PRO). D/c D5W once on TF. Goal: meet est needs 3. Monitor elytes and replace prn Goal: wnls 4. Obtain wt 2x weekly goal: avoid sig wt changes Risk: High Alexa Dukes Dietitian - 12/29/2020 12:13 EDT Electronically signed by Olinda Payne Conversion Solder Leveler [employer] Cerner at 11/10/2022 9:27 AM CDT documented in this encounter Plan of Treatment Not on file documented as of this encounter Visit Diagnoses Not on filedocumented in this encounter
--- OUTSIDE RECORDS SUMMARY | 2025-01-05 12:54 | XMS_ITS | Encounter Summary ---
Author Organization [facility] [employer] [facility] Address [address] [place] [address] Care Team Providers Care Christmas Tree Farm Worker Name Role Phone Unavailable Primary Care Provider Unavailabl e Encounter Details Date Type Department Care Team (Late st Contact Info) Description 12/29/[address] [facility] Family Medicine [address] [place] [address] ProviderMacrina MD [address] [place] [address] Social History Tobacco Use Types Packs/Day Years Used Date Smoking Tobacco: Never Assessed Sex and Gender Information Value Date Recorded Sex Assigned at Not on file Legal Sex Male 1:13 PM CDT Gender Identity Not on file Sexual Orientation Not on file documented as of this encounter Miscellaneous Notes * Cerner Conversion Note - Macrina ProviderMD - 12/29/2020 10:20 PM CDT Pain Assessment Entered On: 01/06/2021 3:13 EDT Performed On: 01/06/2021 1:39 EDT by Marley Huizar Non Emp RN Intervention Information: morphine Performed by Marley Huizar Non Emp RN on 01/06/2021 01:09:00 EDT morphine,1mg IV Push,Central line, medial,Pain (Moderate 4-6) Pain Assessment Pain Assessment : Follow-up assessment Pain Scale Goal : 3 Pain Scale Used : CPOT CPOT Pain Scale Link : Marley Villatoro Non Emp RN - 01/06/2021 3:12 EDT Pain Scale, CPOT CPOT Facial Expression : Tense CPOT Body Movements : Restlessness CPOT Muscle Tension : Relaxed CPOT Airway Status : Extubated CPOT Vocalization (Extubated) : Talking in normal tone or no sound CPOT Pain Scale Score : 3 CPOT Copyright Information : Amado Alcaraz Rui L, Tawanda MEJIA, Matilde C, Jocelyne Bishop., Validation of the Critical-Care Pain Observation Tool in, adult patients. Am J Crit Care. 2006;15(4):420-427. Table 1, http://ajcc.aacnjournals.org/content/15/4/420.short, ?? 2006 [place] [employer]., Used with permission. Marley Huizar Non Emp RN - 01/06/2021 3:12 EDT Electronically signed by [facility] Conversion Local Sales Manager Cerner at 11/14/2022 8:23 AM CDT documented in this encounter Plan of Treatment Not on file documented as of this encounter Visit Diagnoses Not on filedocumented in this encounter
--- OUTSIDE RECORDS SUMMARY | 2025-01-05 12:54 | XMS_ITS | Encounter Summary ---
Author Organization [facility] Address [address] [place] [id number] Care Team Providers Care Valve Inspector Name Role Phone Unavailable Primary Care Provider Unavailabl e Encounter Details Date Type Department Care Team (Late st Contact Info) Description 12/29/2020 Transcribed Document [facility] Pulm & Critical Care Medicine [address] [place] [address] [address] [place] [address] Kapil River MD [address] [facility] [address] [place] [address] Social History Tobacco Use Types Packs/Day Years Used Date Smoking Tobacco: Never Assessed Sex and Gender Information Value Date Recorded Sex Assigned at Not on file Legal Sex Male 1:13 PM CDT Gender Identity Not on file Sexual Orientation Not on file documented as of this encounter Miscellaneous Notes * Cerner Conversion Note - Kapil River MD - 12/29/2020 6:40 PM EDT Patient: JOSE ADORNO Age: 80 years Sex: Male : 1940 Associated Diagnoses: None Author: KAPIL RIVER MD Referring physician: Dr. Gomez Reason for consult: Critical care management CC: Unable to obtain Basic Information HPI: The patient is a 80 year old male with past medical history significant for hypertension, cardiomyopathy, and severe aortic stenosis who presented to our facility on 12/27 for scheduled TAVR. Per medical record, the patient was originally diagnosed with severe aortic stenosis about one year ago. Initially, the patient opted to not have a TAVR procedure due to not wanting to be hospitalized during a pandemic. He chose to have a outpatient aortic valvuloplasty, which helped initially. Recently, he has been having an increase in feeling fatigue, as well as a decline in functional capacity. On this date, he presented for a scheduled TAVR per cardiology. During his procedure, it was suspected that the patient had a tear in the apex of his heart. A pericardiocentesis was done and approximately 800ml of fluid was removed. The patient was placed in ICU for close monitoring. At 1049 AM on 12/27, the patient was found to be hypotensive, and bradycardic and subsequently went into PEA arrest. CODE BLUE was called. The patient received epinephrine, bicarb, and calcium. He was on Patricio and Vaso at that time. ROSC was achieved at 11:00AM. The patient was then taken back to the OR where he received multiple blood products including 4 units of PRBCs, cryoprecipitate, platelets, and fresh frozen plasma. At time of exam, patient is sedated on mechanical ventilator. Pulmonary critical care is being asked to see the patient for critical care management. History is obtained from medical record review. Past medical history: HTN Nonischemic cardiomyopathy Severe Surgical history: Aortic valvuloplasty 11/2019 Colon resection Cholecystectomy Inguinal hernia repair Bilateral cataracts Left hand surgery Social history: Never a smoker Family history: Heart disease 12/28: Remains intubated and sedated. TV 440, AC16, FIO2 70%, PEEP. Will attempt to lift sedation for extubation. NA 151. Hemodynamically on Levophed. Has 1 MT tube and 1 pleural tube. Echo pending. Cr 0.80, good UOP, -3989 balance (including blood loss). WBC 7.4, no fevers. 12/29: Remains intubated/Sedated. TV 440, AC 14, FIO2 50%, peep 5. Instructed RN to lighten sedation for SAT/SBT trial. Initial equal movement Bilateral Upper/Lower extremities yesterday. Today, patient was able to move and follow commands with right side only. STAT CT head done and unremarkable. Sedation remains off and not much movement or agitation noted. Hemodynamically requiring low dose Cardene for hypertension. Cr 1.00, good UOP, -1485 balance. WBC 10.8, low grade fevers 100.9 Review of Systems Unable to obtain Health Status Current medications: Medications (46) Active Scheduled: (14) #NaCl 0.9% *FLUSH* inj 10 mL 10 mL, IV Push, Q12H amLODIPine 5 mg tab 5 mg 1 Tab, Oral, Daily ascorbic acid 500 mg tab 500 mg 1 Tab, Oral, BID aspirin 81 mg chew tab 81 mg 1 Tab, Oral, Daily atorvastatin 40 mg tab 40 mg 1 Tab, Oral, At Bedtime ceFAZolin/D5w 2 Gram 50 mL, IV Piggyback, 1-Time famotidine 20 mg/2 mL inj 20 mg 2 mL, IV Push, BID gabapentin 300 mg cap 300 mg 1 Cap, Oral, Daily gabapentin 600 mg tab 600 mg 1 Tab, Oral, At Bedtime insulin regular 1 unit/0.01 mL inj 3mL 50 kg - 75 kg scale, SubCutaneous, Q6H lisinopril 10 mg tab 10 mg 1 Tab, Oral, BID metoprolol tartrate 25 mg tab 12.5 mg 0.5 Tab, Oral, BID senna 8.6 mg tab 17.2 mg 2 Tab, Oral, At Bedtime senna/docusate 8.6/50 mg tab 1 Tab, Oral, BID Continuous: (11) dexmedeTOMIDine 400 mcg + NaCl 0.9% TITRATE 100 mL 100 mL, IntraVENous Dextrose 5% in Water 1,000 mL 1,000 mL, IntraVENous, 50 mL/Hr EPINEPHrine 10 mg + NaCl 0.9% T ITRATE 250 mL 250 mL, IntraVENous fentaNYL 1,000 mcg + Premix Diluent NaCl 0.9% TITRATE 100 mL 100 mL, IntraVENous lactated ringers 1,000 mL 1,000 mL, IntraVENous, 20 mL/Hr NaCl 0.9% TITRATE 500 mL 500 mL, IntraVENous, 30 mL/Hr niCARdipine 25 mg + NaCl 0.9% T ITRATE 250 mL 250 mL, IntraVENous NORepinephrine 4 mg + NaCl 0.9% T ITRATE 250 mL 250 mL, IntraVENous phenylephrine 20 mg + NaCl 0.9% T ITRATE 250 mL 250 mL, IntraVENous propofol 1,000 mg + Premix Diluent Titrate 100 mL 100 mL, IntraVENous vasopressin 20 Units + NaCl 0.9% TITRATE 100 mL 100 mL, IntraVENous PRN: (21) #NaCl 0.9% *FLUSH* inj 10 mL 10 mL, IV Push, See Comment acetaminophen 325 mg tab 650 mg 2 Tab, Oral, Q4H acetaminophen/HYDROcodone 325/5 mg tab 2 Tab, Oral, Q4H albumin human 5% 12.5 g/250 mL inj 12.5 Gram 250 mL, IntraVENous, Daily albuterol-ipratropium inh 3 mL 3 mL, Nebulized Inhalation, RT_Q4H bisacodyl 10 mg supp 10 mg 1 Supp, Rectal, Daily calcium gluconate 1 Gram 10 mL, IV Piggyback, 1-Time dextrose 50% 25 g/50 mL inj syr 25 Gram 50 mL, IV Push, 1-Time dextrose 50% 25 g/50 mL inj syr 25 Gram 50 mL, IV Push, 1-Time furosemide 20 mg/2 mL inj 20 mg 2 mL, IV Push, 1-Time magnesium hydroxide 8% liq 30 mL 30 mL, Oral, Daily metoclopramide 10 mg tab 10 mg 1 Tab, Oral, Q6H metoclopramide 10 mg/2 mL inj 10 mg 2 mL, IV Push, Q6H morphine 2 mg/1 ml inj 2 mg 1 mL, IV Push, Q30Min nitroglycerin 0.4 mg tab # 25 btl 0.4 mg 1 Tab, SubLINgual, Q5Min ondansetron 4 mg/2 mL inj 4 mg 2 mL, IV Push, Q4H oxyCODONE 5 mg tab 5 mg 1 Tab, Oral, Q6H potassium chloride 10 mEq 50 mL, IV Piggyback, Q1H sodium bicarbonate 50 mEq/50 ml inj syr 50 mEq 50 mL, IV Push, 1-Time sodium bicarbonate 50 mEq/50 ml inj syr 100 mEq 100 mL, IV Push, 1-Time zolpidem 5 mg tab 5 mg 1 Tab, Oral, At Bedtime Physical Examination VS/Measurements Vitals Signs (last 24 hrs) Last Charted Minimum Maximum Mon HR 111 (DEC 29 17:00) 61 (DEC 28 18:00) 127 (DEC 29 12:00) Resp Rate H 24 (DEC 29 17:00) 14 (DEC 28 18:00) H 24 (DEC 29 17:00) SBP H 155 (DEC 29 17:00) L 89 (DEC 28 18:00) H 183 (DEC 29 12:00) DBP 74 (DEC 29 17:00) L 50 (DEC 28 18:00) H 92 (DEC 29 12:00) MAP 116 (DEC 29 17:00) 59 (DEC 29 02:00) 129 (DEC 29 12:00) SpO2 L 92 (DEC 29 17:00) L 89 (DEC 29 11:05) 100 (DEC 28 18:00) Intake & Output Totals Last 24 Hours (7a-7a) Intake (81 Events) Continuous Infusions (610.0559 mL) Medications (734.04 mL) Output (18 Events) Chest Tube Output: (380 mL) Spence Catheter (2450 mL) Input Total: 1344.0959 mL Output Total: 2830 mL Balance: -1485.9041 mL General: Sedated on mechanical ventilator. RASS -2. Will awake and move right side; and follow commands. Eye: Pupils are equal, round and reactive to light, Normal conjunctiva. HENT: Normocephalic, Oral ET tube. Mouth: Oral mucosa ( Dry ). Neck: Supple, No lymphadenopathy. Respiratory: Breath sounds are equal, Coarse breath sounds bilaterally with diminished breath sounds in bilateral bases.. Support: Chest tube ( X2 ), Ventilator. Cardiovascular: Irregularly irregular rhythm, Tachycardia. Gastrointestinal: Soft, Non-distended. Bowel sounds: All four quadrants, Diminished. Support: Gastric tube ( Nasal ). Genitourinary: Support: Urinary catheter ( Indwelling ). Musculoskeletal: No swelling, No deformity. Integumentary: Warm, Dry. Integumentary exam: Pale. Neurologic: Sedated on ventilator. RASS -2. CAM ICU +-2. Will awake and move right side; and follow commands. Psychiatric: Unable to assess. Review / Management Results review: Labs (Last four charted values) WBC H 10.8 (DEC 29) 7.4 (DEC 28) 7.4 (DEC 27) H 19.7 (DEC 03) HB L 8.8 (DEC 05) L 8.2 (DEC 05) L 8.3 (DEC 05) L 8.3 (DEC 04) HCT L 26.8 (DEC 05) L 24.9 (DEC 05) L 24.4 (DEC 05) L 24.4 (DEC 04) Plt L 96 (DEC 05) L 124 (DEC 04) 174 (DEC 03) L 93 (DEC 03) Na 145 (DEC 05) H 149 (DEC 04) H 151 (DEC 04) H 150 (DEC 03) K 3.8 (DEC 05) 3.9 (CESAR 04) 3.8 (CESAR 04) 4.2 (CESAR 04) Cl H 114 (CESAR 05) H 117 (CESAR 04) H 118 (CESAR 04) H 115 (CESAR 03) CO2 29 (CESAR 05) 30 (CESAR 04) 29 (CESAR 04) 25 (CESAR 03) BUN 17 (CESAR 05) 17 (CESAR 04) 14 (CESAR 04) 13 (CESAR 03) Cr 1.00 (CESAR 05) 0.90 (CESAR 04) 0.80 (CESAR 04) 0.90 (CESAR 03) Glu R H 114 (CESAR 05) H 109 (CESAR 04) 90 (CESAR 04) H 216 (CESAR 03) Ca L 8.1 (CESAR 05) L 8.1 (CESAR 04) 9.1 (CESAR 04) 8.8 (CESAR 03) Lactic C 2.6 (CESAR 05) 1.0 (CESAR 05) 1.4 (CESAR 05) 1.5 (CESAR 04) PT 11.4 (CESAR 04) H 17.4 (CESAR 03) H 14.3 (CESAR 03) H 18.7 (CESAR 03) INR 1.1 (CESAR 04) H 1.7 (CESAR 03) H 1.4 (CESAR 03) H 1.8 (CESAR 03) PTT 27.8 (CESAR 05) H 62.4 (CESAR 03) H 37.3 (CESAR 03) H 55.9 (CESAR 03) AST H 125 (CESAR 05) H 141 (CESAR 04) H 179 (CESAR 03) H 267 (CESAR 03) ALT 58 (CESAR 05) H 85 (CESAR 04) H 108 (CESAR 03) H 203 (CESAR 03) ALK P 55 (CESAR 05) 53 (CESAR 04) 46 (CESAR 03) 76 (CESAR 03) T Bili H 1.3 (CESAR 05) H 2.2 (CESAR 04) H 1.5 (CESAR 03) 1.0 (CESAR 03) PTN L 4.6 (CESAR 05) L 4.8 (CESAR 04) L 4.3 (CESAR 03) L 4.6 (CESAR 03) ALB L 2.4 (CESAR 05) L 2.7 (CESAR 04) L 2.6 (CESAR 03) L 2.6 (CESAR 03) Troponin <0.015 (CESAR 01) . Blood Gases (Current Encounter/Past 24 Hours) pH Art 7.52 HI 12/29/2020 12:22 pCO2 Art 37.3 12/29/2020 04:43 pO2 Art 91.1 12/29/2020 04:43 HCO3 Art 30.1 HI 12/29/2020 12:22 BE Art 6.7 HI 12/29/2020 12:22 sO2 Art 98.1 12/29/2020 04:43 tHb Art 9.1 LOW 12/29/2020 12:21 FHHb <2.4 NA 12/29/2020 04:43 ctO2 12.5 NA 12/29/2020 04:43 FIO2 Art 50 NA 12/29/2020 04:43 Delivery Device Type Art Ventilator NA 12/29/2020 04:43 Temperature, F Art 98.6 NA 12/29/2020 04:43 Art Blood Gas (ABG) Site Arterial Line NA 12/29/2020 04:43 Acceptable Grey's Test Art Non-Applicable NA 12/29/2020 04:43 Ventilator Mode Art AC NA 12/29/2020 04:43 Tidal Volume Set Art 440.0 NA 12/29/2020 04:43 Set Rate Art 14.0 NA 12/29/2020 04:43 Respiratory Rate Art 14.0 NA 12/29/2020 04:43 CPAP/PEEP Art 5.0 NA 12/29/2020 04:43 ABG Num of Draw Attempts 1 NA 12/29/2020 04:43 PaO2/FiO2 calculated 182 NA 12/29/2020 04:43 Radiology Results (Last 48 hours) [id number] -- 12/27/2020 06:39 CR Chest 1 Vw Portable (12/27/2020 18:59) Result: TWO VIEW CHESTHISTORY: Postop heart surgery.COMPARISON: 4 hours prior.FINDINGS: The endotracheal tube terminates above the karina. The rightIV J central venous catheter terminates in the SVC. The NG tubeterminates below the diaphragm. There has been prior median sternotomy.There is an aortic valve. There is a right-sided chest tube. There is amediastinal drain. There is mild atelectasis. There is no pneumothorax.The osseous structures are unremarkable. IMPRESSION: Expected postoperative changes.Images reviewed, interpreted, and dictated by Dr. Breezy Snider.Transcribed by RT Nan (Sherron) (M).I have personally viewed, interpreted and dictated the examination. Ihave read and agree with the above final transcribed report. CR Chest 1 Vw Portable (12/28/2020 07:40) Result: PORTABLE CHEST 12/28/2020 4:00 AM HISTORY: Dyspnea.COMPARISON: 10 hours prior.FINDINGS: The heart size is normal. The patient is status post mediansternotomy. There has been no change in support tubes and lines. Thereare worsening bibasilar opacities, likely atelectasis. There is nopneumothorax. The osseous structures are unremarkable. IMPRESSION: Worsening bibasilar opacities, likely atelectasis.Images reviewed, interpreted, and dictated by Dr. Karina Crowley.Transcribed by Mynor Moran(R).I have personally viewed, interpreted and dictated the examination. Ihave read and agree with the above final transcribed report. CR Chest 1 Vw Portable (12/29/2020 04:31) Result: PORTABLE CHESTHISTORY: Shortness of breath.COMPARISON: PCXR from the previous day.FINDINGS: The heart is stable in size. There is a worsening right andstable left pleural effusion. There is mild edema. There is nopneumothorax. The support devices are in good position. IMPRESSION: Worsening right and stable left effusion with mild edema.Images reviewed, interpreted, and dictated by Dr. Alvin Portillo.Transcribed by Dov Colby PA-C.I have personally viewed, interpreted and dictated the examination. Ihave read and agree with the above final transcribed report. CT Chest WO (12/29/2020 11:49) Result: CT CHEST WITHOUT CONTRASTHISTORY: Increase oxygenation need, shortness of breath COMPARISON: 12/03/2020.TECHNIQUE: Axial CT without IV contrast administration. FINDINGS:Severe bilateral lower lobe atelectasis is present. The aerated lungparenchyma is clear without evidence of edema. Small to moderate bilateral pleural effusions are noted. Right chesttube is noted with distal portion within right pleural fluid. Tinyright-sided pneumothorax is seen. There is minimal pneumomediastinumconsidered postoperative.A pericardial drain is seen along the inferior heart. Mild cardiomegalyis present. There is no significant pericardial effusion. No adenopathyor mass lesion is present. IMPRESSION: 1. Severe bilateral lower lobe atelectasis with small to moderatebilateral pleural effusions2. No significant pneumothorax3. Cardiomegaly without evidence of significant pericardial effusion This study was performed using dose reduction techniques to achieveradiation exposure as low as reasonably achievable (ALARA) CT Head WO (12/29/2020 11:49) Result: HEAD CT HISTORY: Left-sided weakness.COMPARISON: None .TECHNIQUE: Multiple axial CT images were performed from the foramenmagnum to the vertex without enhancement. FINDINGS: The ventricles are enlarged. There is diffuse atrophy. Thereis periventricular white matter change likely related to small vesseldisease. There is no evidence of hemorrhage . No masses are identified. No extra-axial fluid is seen. The sinuses are normal. There is noacute osseous abnormality. IMPRESSION: Atrophy and chronic changes without acute process. Images reviewed, interpreted, and dictated by Dr. Alvin Portillo.Transcribed by Dov Colby PA-C.I have personally viewed, interpreted and dictated the examination. Ihave read and agree with the above final transcribed report. 12/14/2020 PFTS SPIROMETRY: 1. FVC 3.77 L, 103% predicted. 2. FEV1 2.72 L, 105% predicted. 3. FEV1/FVC percentage predicted 72. Diffusion lung capacity was 114% predicted when corrected to alveolar volume. ECHO 12/25: Impression: Normal sized left ventricle. Moderate left ventricular hypertrophy. Visually estimated ejection fraction 55% +/- 5%. Normal left ventricular systolic function with normal systolic strain pattern. Increased left atrial pressure (Grade II diastolic dysfunction). Trace aortic valve regurgitation. Severe aortic stenosis. Peak/Mean 65/37mmHg Dilated aortic root measuring 3.98cm Dilated ascending aorta measuring 4.10cm. No masses or thrombi are seen. Impression and Plan Pulmonary Acute hypoxic respiratory failure secondary to PEA arrest Volume overload vs. TRALI due to multiple blood transfusion Patient received more than 20 L including crystalloid, colloid blood products and now Intubated during CODE BLUE on 12/27 PFTs with normal spirometry in November 2020 Never a smoker 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 with a graft PEA arrest on 12/27- ROSC achieved after 11 minute Cardiogenic shock on Levophed Echo 12/25/2020: EF 55%, grade II diastolic dysfunction, trace AR, severe New onset A fib; now sinus rhythm Hx of diastolic heart failure History of hypertension Heme Acute blood loss anemia Left ventricular tear complicated by pericardial tamponade and hemopericardium Thrombocytopenia Leukocytosis Renal Metabolic acidosis due to lactic acid Electrolyte disturbances Hypernatremia ID Leukocytosis COVID-19 negative Endocrine Glycemic control Neuro Sedated on vent Plan: Vent bundle - titrate FiO2 to maintain sat 89-94% - Chest x-ray - rib fracture noted - continue to follow chest x-rays Sedation: Fentanyl/Propofol RASS -0-1 drip for goal RASS -1---Lighten/Stop to evaluate Neuro status STAT CT head--NEG Daily SAT/SBT trial--Unable to extubate due to Higher levels of O2 Requirements and Inconsistent Neuro status Hemodynamics: Levo for goal MAP >65mmHg. Avoid hypotension due to presence of left ventricular rupture repair Antibiotics: -Ancef per cardiology Serial H and H Q6H Lactic acid monitor-- Hypernatremia; sodium at 145 today. --D5W off Monitor H/H blood loss CTS following MT X 1, CT X 1;Monitor output Pepcid/SCD Full code 38 minutes critical care time excluding procedures. Discussed with DISH PERSON: RN and patient's at bedside. documented in this encounter Plan of Treatment Not on file documented as of this encounter Visit Diagnoses Not on filedocumented in this encounter
--- OUTSIDE RECORDS SUMMARY | 2025-01-05 12:54 | XMS_ITS | Encounter Summary ---
Author Organization [facility] Address [address] [place] [id number] Care Team Providers Care Feature Writer Name Role Phone Unavailable Primary Care Provider Unavailabl e Encounter Details Date Type Department Care Team (Late st Contact Info) Description 01/02/2021 Transcribed Document [address] [id number] Abby Rodrigues MD [address] [place] [address] Social History Tobacco Use Types Packs/Day Years Used Date Smoking Tobacco: Never Assessed Sex and Gender Information Value Date Recorded Sex Assigned at Not on file Legal Sex Male 1:13 PM CDT Gender Identity Not on file Sexual Orientation Not on file documented as of this encounter Miscellaneous Notes * Cerner Conversion Note - Abby Rodrigues MD - 01/02/2021 9:07 AM EDT Patient: JOSE ADORNO Age: 80 years Sex: Male : 1940 Associated Diagnoses: None Author: ABBY RODRIGUES MD-CAR Basic Information PCP: Robert Batista MD Primary Working Second Hand: Arthur Gomez MD Subjective Patient seen and examined at the bedside. Sedated. Sedated. Health Status Current medications: Home Medications (6) Active amLODIPine 5 mg oral tablet 5 mg = 1 Tab, Oral, Daily atorvastatin 40 mg oral tablet 40 mg = 1 Tab, Oral, Daily clopidogrel 75 mg oral tablet 75 mg = 1 Tab, Oral, Daily gabapentin 300 mg oral capsule 600 mg = 2 Cap, Oral, Once a day (at bedtime) gabapentin 300 mg oral capsule 300 mg = 1 Cap, Oral, Daily lisinopril 10 mg oral tablet 10 mg = 1 Tab, Oral, BID , Medications (35) Active Scheduled: (14) #NaCl 0.9% *FLUSH* inj 10 mL 10 mL, IV Push, Q12H amLODIPine 10 mg tab 10 mg 1 Tab, Oral, Daily aspirin 81 mg chew tab 81 mg 1 Tab, Oral, Daily atorvastatin 40 mg tab 40 mg 1 Tab, Oral, At Bedtime ceFAZolin/D5w 2 Gram 50 mL, IV Piggyback, 1-Time gabapentin 300 mg cap 300 mg 1 Cap, Oral, Daily gabapentin 600 mg tab 600 mg 1 Tab, Oral, At Bedtime insulin regular 1 unit/0.01 mL inj 3mL 50 kg - 75 kg scale, SubCutaneous, Q6H lactobacillus acidophilus cap 1 Cap, Oral, BID lisinopril 10 mg tab 10 mg 1 Tab, Oral, BID metoprolol tartrate 25 mg tab 12.5 mg 0.5 Tab, Oral, BID pantoprazole 40 mg inj 40 mg, IV Push, Daily piperacillin-tazobactam + NaCl 0.9% 100 mL 3.375 Gram, IV Piggyback, Q6H senna/docusate 8.6/50 mg tab 1 Tab, Oral, BID Continuous: (4) dexmedeTOMIDine 400 mcg + NaCl 0.9% TITRATE 100 mL 100 mL, IntraVENous fentaNYL 1,000 mcg + Premix Diluent NaCl 0.9% TITRATE 100 mL 100 mL, IntraVENous niCARdipine 25 mg + NaCl 0.9% T ITRATE 250 mL 250 mL, IntraVENous NORepinephrine 4 mg + NaCl 0.9% T ITRATE 250 mL 250 mL, IntraVENous PRN: (17) #NaCl 0.9% *FLUSH* inj 10 mL 10 mL, IV Push, See Comment acetaminophen 325 mg tab 650 mg 2 Tab, Oral, Q4H acetaminophen/HYDROcodone 325/5 mg tab 2 Tab, Oral, Q4H albumin human 5% 12.5 g/250 mL inj 12.5 Gram 250 mL, IntraVENous, Daily albuterol-ipratropium inh 3 mL 3 mL, Nebulized Inhalation, RT_Q4H bisacodyl 10 mg supp 10 mg 1 Supp, Rectal, Daily dextrose 50% 25 g/50 mL inj syr 25 Gram 50 mL, IV Push, 1-Time dextrose 50% 25 g/50 mL inj syr 25 Gram 50 mL, IV Push, 1-Time magnesium hydroxide 8% liq 30 mL 30 mL, Oral, Daily morphine 2 mg/1 ml inj 1 mg 0.5 mL, IV Push, Q3H nitroglycerin 0.4 mg tab # 25 btl [...] 5 mg 1 Tab, Oral, At Bedtime Problem list: Active Problems (13) Aortic stenosis, severe Aortic valve stenosis Arthritis of right knee At risk for sleep apnea Back pain, chronic Chronic anxiety Colorectal surgery Disorder of prostate GERD - Gastro-esophageal reflux disease H/O peripheral neuropathy HTN - Hypertension Hyperlipidemia Hypertension Objective Intake and Output 24 hour intake: Total 1,280 ml 24 hour output: Total 4,710 ml VS/Measurements Vitals Signs (last 24 hrs) Last Charted Minimum Maximum Apical HR 77 (JAN 01 20:39) 77 (JAN 01 20:39) 77 (JAN 01 20:39) Mon HR 62 (JAN 02 06:00) 61 (JAN 02 04:00) 94 (JAN 01 10:30) Resp Rate 14 (JAN 02 06:00) L 1 (JAN 02 04:30) H 26 (JAN 01 09:00) SBP 99 (JAN 02 06:00) L 68 (JAN 01 15:00) H 170 (JAN 01 17:30) DBP L 56 (JAN 02 06:00) L 42 (JAN 01 15:00) H 108 (JAN 01 13:30) MAP 72 (JAN 02 06:00) 51 (JAN 01 15:00) 128 (JAN 01 13:30) SpO2 99 (JAN 02 06:00) 94 (JAN 01 08:58) 100 (JAN 01 10:12) General: on bipap. Eye: Pupils are equal, round and reactive to light, Normal conjunctiva. HENT: Normocephalic. Neck: Supple, No carotid bruit, No jugular venous distention. Respiratory: Breath sounds are equal, accessory muscles to breath. Breath sounds: Bilateral, Diminished. Support: Oxygen delivery method ( By CPAP/BiPAP ). Cardiovascular: Normal rate, Regular rhythm, No murmur, Normal peripheral perfusion. Gastrointestinal: Soft, Non-distended, Normal bowel sounds. Musculoskeletal: No deformity. Integumentary: Warm, Dry, Incision site: C/D/I. Neurologic: Alert, Oriented. Results Review JAN 02 04:13 143 111 H 39 / H 129 3.7 31 0.80 \ JAN 02 04:13 \ L 7.7 / 9.0 163 / L 24.1 \ Cardiac Markers (Current Encounter/Past 24 Hours) No Cardiac Marker Results Found (Past 24 Hours) Radiology Results (Last 48 hours) [id number] -- 12/27/2020 06:39 CR Abdomen 1 Vw Portable (12/31/2020 12:33) Result: KUB HISTORY: Feeding tube placement.FINDINGS: The feeding tube is identified below the diaphragm. The bowelgas pattern is nonspecific. Moderate pleural effusions are noted.IMPRESSION: Feeding tube tip terminates in the second portion of theduodenum.Moderate pleural effusions.Images reviewed, interpreted, and dictated by Dr. Sonny Avla.Transcribed by [place] Mohan PA-C, R.T. (N), C N M T.I have personally viewed, interpreted and dictated the examination. Ihave read and agree with the above final transcribed report. CR Chest 1 Vw Portable (01/01/2021 04:15) Result: PORTABLE CHEST 01/01/2021 4:00 AM HISTORY: Pleural effusion.COMPARISON: 1 day prior.FINDINGS: The heart size is normal. The ET tube and NG tube have beenremoved. There is a new feeding tube with the tip below the diaphragm.There is a right deep line and mediastinal or pericardial drain. A rightchest tube is present. There is partially improved pulmonary vascularcongestion. There are partially improved pulmonary opacities and pleuraleffusions. There is no pneumothorax. The osseous structures areunremarkable. IMPRESSION: Partially improved pulmonary vascular congestion, pulmonaryopacities and pleural effusions.Images reviewed, interpreted, and dictated by Dr. Christiano Gurrola.Transcribed by Mynor Moran(R).I have personally viewed, interpreted and dictated the examination. Ihmeño read and agree with the above final transcribed report. CR Chest 1 Vw Portable (01/01/2021 10:20) Result: PORTABLE CHEST 01/01/2021 10:04 AM HISTORY: Line placement.COMPARISON: Same day.FINDINGS: There is a new ET tube with the tip terminating in the midtrachea. Right catheter tip terminates within the SVC. There is afeeding tube identified with its tip coursing below the diaphragm.Status post TAVR. The heart is normal in size . The mediastinum isunremarkable . Large right pleural effusion. Improvement in right lungairspace disease, may represent improving edema or atelectasis. Thereis no pneumothorax . The osseous structures are unremarkable . IMPRESSION: Interval improvement as above.SINGLE VIEW ABDOMENHISTORY: Feeding tube placement.COMPARISON: December 31, 2020FINDINGS: The feeding tube is identified below the diaphragm. The bowelgas pattern is nonspecific. There are multiple right upper quadrantsurgical clips consistent with cholecystectomy.IMPRESSION: Feeding tube tip terminates in the second portion of theduodenum. Images reviewed, interpreted, and dictated by Dr. Bebeto Avelar.Transcribed by Mt Mohan PA-C, R.T. (N), Kieran Bishop T.I have personally viewed, interpreted and dictated the examination. Ihmeño read and agree with the above final transcribed report. CR Abdomen 1 Vw Portable (01/01/2021 10:22) Result: PORTABLE CHEST 01/01/2021 10:04 AM HISTORY: Line placement.COMPARISON: Same day.FINDINGS: There is a new ET tube with the tip terminating in the midtrachea. Right catheter tip terminates within the SVC. There is afeeding tube identified with its tip coursing below the diaphragm.Status post TAVR. The heart is normal in size . The mediastinum isunremarkable . Large right pleural effusion. Improvement in right lungairspace disease, may represent improving edema or atelectasis. Thereis no pneumothorax . The osseous structures are unremarkable . IMPRESSION: Interval improvement as above.SINGLE VIEW ABDOMENHISTORY: Feeding tube placement.COMPARISON: December 31, 2020FINDINGS: The feeding tube is identified below the diaphragm. The bowelgas pattern is nonspecific. There are multiple right upper quadrantsurgical clips consistent with cholecystectomy.IMPRESSION: Feeding tube tip terminates in the second portion of theduodenum. Images reviewed, interpreted, and dictated by Dr. Bebeto Avelar.Transcribed by Mt Mohan PA-C, Mynor (N), Kieran Bishop T.I have personally viewed, interpreted and dictated the examination. Ihave read and agree with the above final transcribed report. CR Chest 1 Vw Portable (01/02/2021 04:55) Result: PORTABLE CHEST 01/02/2021 4:00 AM HISTORY: Respiratory distress.COMPARISON: Previous day .FINDINGS: The heart is stable in size. There has been interval worseningin the perihilar and bibasilar opacities. There are moderate bilateralpleural effusions. There is no pneumothorax. The support devices are ingood position. Status post median sternotomy.IMPRESSION: Interval worsening as above.Continued follow up recommended.Images reviewed, interpreted, and dictated by Dr. Brayan Pratt.Transcribed by Rome Davies PA-C TAVR 12/27/2020 PROCEDURES PERFORMED: 1. Transcatheter aortic valve replacement using a 29 mm Andrew 3 bioprosthesis via close transfemoral approach. 2. Supravalvular aortography. 3. Temporary transvenous pacemaker insertion. 4. Ultrasound-guided pericardiocentesis for acute tamponade. 5. Cardiopulmonary resuscitation from hypotensive arrest due to left ventricular apical perforation and the tamponade. Pericardial Window; 12/27/2020 PROCEDURE: Emergent subxiphoid pericardial window with drainage of pericardial effusion. Emergent sternotomy 12/27/2020 PROCEDURES PERFORMED: 1. Emergent median sternotomy. 2. Repair of left ventricular tear. Impression and Plan IMPRESSION: Aortic stenosis, severe 11/15/19 -LHC no obstructive disease. BAV 09/19/19 - ECHO EF 40%. severe aortic stenosis peak P mean P.83 s/p TAVR 12/27/2020. Apical perforation/Acute tamponade s/p pericardiocentesis and surgical repair of LV [place]. PEA Arrest; CODE called 10 minutes to ROSC Mediastinal hemorrhage/Cardiac tamponade s/p emergent sternotomy; repair of left ventricular teat 12/27/2020 - Mechanical vent placed during surgery acute blood loss anemia s/p multiple blood products including 4 units of PRBCs, cryoprecipitate, platelets, and fresh frozen plasma Hypertension Nonischemic cardiomyopathy Neurologic changes; improved CT - no acute changes. PLAN; 01/02/2021 Supportive care. Appreciate pulmonary input and assistance. 01/01/2021 Extubated this Am. On Bipap. STill have CTs with drainage. Supportive care. 12/31/2020 Trying to extubate today. Continue supportive care. 12/30/2020 Hopefully will wean to extubate today. Continue supportive care. 12/29/[address] continue supportive care. 12/28/2020 Wean levophed. Possible extubation today. 12/27/2020 Transthoracic Aortic Valve Replacement. Risks and Benefits discussed. Patient Wishes to proceed. Further plans to follow post TAVR. documented in this encounter Plan of Treatment Not on file documented as of this encounter Visit Diagnoses Not on filedocumented in this encounter
--- OUTSIDE RECORDS SUMMARY | 2025-01-05 12:54 | XMS_ITS | Encounter Summary ---
Author Organization [facility] Address [address] [place] [address] Care Team Providers Care Grease Rack Worker Name Role Phone Unavailable Primary Care Provider Unavailabl e Encounter Details Date Type Department Care Team (Late st Contact Info) Description 01/07/2021 Transcribed Document [facility] [place] [address] ProviderMacrina MD [address] [place], [place] [id number] Social History Tobacco Use Types Packs/Day Years Used Date Smoking Tobacco: Never Assessed Sex and Gender Information Value Date Recorded Sex Assigned at Not on file Legal Sex Male 1:13 PM CDT Gender Identity Not on file Sexual Orientation Not on file documented as of this encounter Miscellaneous Notes * Cerner Conversion Note - Macrina Cordova MD - 01/07/2021 9:17 AM CDT Patient: JOSE ADORNO Age: 80 years Sex: Male : 1940 Associated Diagnoses: Anxiety; Cardiac tamponade; HTN (hypertension); GERD (gastroesophageal reflux disease); Mediastinal Hemorrhage; HLD (hyperlipidemia); History of Colon cancer S/P Surgery; Critical aortic stenosis; Peripheral neuropathy Author: FRANDY CARSON PA Basic Information Mr. Jose Adorno is an 80-year-old male, who was found to have severe aortic valve stenosis with a peak gradient of 75.8 mmHg across the aortic valve. His left heart catheterization did not reveal any evidence of coronary artery disease. The patient was deemed to be a good candidate for transcatheter aortic valve implantation. 12/27/20: 1. Transcatheter aortic valve replacement using a 29 mm Vivas ROC 3 Ultra bioprosthetic valve via right common femoral artery under conscious sedation. 2. Ascending aortography. 3. Insertion of temporary pacemaker via left common femoral vein. 4. Initiation of cardiopulmonary resuscitation. 5. Emergent percutaneous pericardial window. 6. Transthoracic echocardiography. The pt had just undergone TAVR and post-procedure, the patient developed severe hypotension, requiring CPR. [...] possible sternotomy for ongoing tamponade and bleeding. 12/27/20: Emergent subxiphoid pericardial window with drainage of pericardial effusion. The pt underwent TAVR as stated above then subsequently had a pericardial window. At that time, some blood was drained from the pericardial sac, but no active bleeding was encountered. A large chest tube was ultimately placed and the patient was transferred to the intensive care unit. Few hours later, the patient developed significant amount of hemorrhage and drainage from the pericardial sac chest tube. Dr. Gresham then took the pt emergently back to the OR for evaluation. 12/27/20: 1. Emergent median sternotomy. 2. Repair of left ventricular tear. 12/28/20: POD#1 Intubated and sedated on Fentanyl and Propofol. He is also on levo .02mcg/kg/min. 12/29/20: POD#2 12/30/20: POD#3 12/31/20: POD#4 Intubated and off sedation. O2 99% FiO2 50% The pt does somewhat arouse and can follow commands with left side but not with the right. 01/01/21: POD#5 The pt was extubated yesterday at approx. 1200 and was on BiPAP when I first came in this morning but required reintubation at approx. 1012. 01/02/21: POD#6 Intubated and sedated on [id number]/hr and Precedex .6mcg/kg/min. He is also on Levo .03mcg/kg/min. 01/03/21: POD#7 The pt is currently intubated and sedated on fentanyl 100mcg/hr and Precedex .5mcg/k/hr. He is currently undergoing a SBT. He does arouse somewhat and is able to move both his right and left side to command. Right side is weaker but he is moving his foot, slightly lifting right leg off of the bed and trying to squeeze with his right hand slightly which is an improvement to previous days. 01/04/21: POD#8 Intubated and he is awake enough to follow simple commands. He is moving his right side even better than yesterday and squeezed exercise ball with right hand today on command. 01/05/21: POD#9. Resting, no issues overnight, follows commands, strength improved. 01/06/21: POD#10 01/07/21: POD#11 The pt is awake and has a hoarse voice. He complains about the BiPAP and states he has not slept in two days because of it. He says I just can't do it a third night. Health Status Allergies: Allergic Reactions (Selected) No Known Allergies Physical Examination Intake and Output 24 hour intake: Total 1144 ml 24 hour output: Total 2690 ml VS/Measurements Vital Measurements 01/07/2021 8:29 EDT Heart Rate Monitored 100 bpm Oxygen Saturation 99 % 01/07/2021 6:08 EDT Oxygen Therapy Mode Nasal cannula Oxygen Flow Rate 4 Liter/Min 01/07/2021 5:00 EDT Systolic Blood Pressure 131 mmHg Diastolic Blood Pressure 66 mmHg Mean Arterial Pressure (MAP)-BMDI 92 Temperature, Celsius 37.5 Deg C Clinical Temperature, F 99.5 Deg F General: Alert and talkative. HENT: Normocephalic. Neck: Supple. Respiratory: Breath sounds: Rhonchi present. Cardiovascular: 100 beats per minute, Regular rhythm, S1, S2, Tachycardia, No edema. Gastrointestinal: Soft, Non-distended, Normal bowel sounds. Integumentary: Warm, Dry. Neurologic: The pt is able to move both his left and right side with right being weaker than the left. . Psychiatric: Cooperative. Review / Management Results review: JAN 07 05:24 140 107 H 24 / H 145 4.0 31 0.70 \ CESAR 14 05:24 \ L 9.4 / H 15.3 310 / L 29.7 \ Blood Gases (Current Encounter/Past 24 Hours) No Blood Gas Results Found (Past 24 Hours) Coagulation Results (Current Encounter/Past 24 Hours) No Coagulation Results Found (Past 24 Hours) . Impression and Plan 12/27/20 1.TAVR 2. 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 3. Emergent median sternotomy. 4. Repair of left ventricular tear. 12/28/20 POD#1 Intubated and sedated -Wean vent as tolerated Levo .02mcg/kg/min -Wean as tolerated MTs 370ml / [address] 150ml 12/29/20 POD#[address] in the right chest. Hopefully extubate soon. 12/30/20 POD#[address] head negative U.O good. CXR good. Lactic acid improved. Thrombocytopenia. Transfuse 6 pk of Plts Continue support. 12/31/20 POD#4 Intubated O2 99% FiO2 50% Wean and extubate as tolerated Cor Dustin placement Start TF 01/01/21 POD#5 Extubated yesterday but required reintubation this morning On TF Neuro consult ordered by Pulm 01/02/21 POD#6 Intubated and sedated Levo .03mcg/kg/min On TF Awaiting MRI Dr. Thorne evaluated yesterday 01/03/21 POD#7 Intubated and sedated Currently undergoing SBT MRI : Multiple acute infarcts. Bilateral mastoiditis. Mild chronic ischemic/gliotic changes. 01/04/21 POD#8 Intubated and arouses following simple commands with left and right side MT and CT D/C without any immediate complications and the pt tolerated well SBT later today 01/05/21 POD#9 01/06/21: POD#10 Extubated, alert. Moving all exts. CXR: ok. Needs PT and rehab 01/07/21 POD#11 O2 99% 4L/NC Get OOB today if possible Pt will likely need inpatient rehab when clinically ready for Discharge Diagnosis Anxiety - Pre-Op Diagnosis, Medical. Cardiac tamponade - Discharge, Medical. HTN (hypertension) - Pre-Op Diagnosis, Medical. GERD (gastroesophageal reflux disease) - Pre-Op Diagnosis, Medical. Mediastinal Hemorrhage - Discharge, Medical. HLD (hyperlipidemia) - Pre-Op Diagnosis, Medical. History of Colon cancer S/P Surgery - Pre-Op Diagnosis, Medical. Critical aortic stenosis - Admitting, Medical. Critical aortic stenosis - Discharge, Medical. Peripheral neuropathy - Pre-Op Diagnosis, Medical. documented in this encounter Plan of Treatment Not on file documented as of this encounter Visit Diagnoses Not on filedocumented in this encounter
--- OUTSIDE RECORDS SUMMARY | 2025-01-05 12:54 | XMS_ITS | Encounter Summary ---
Author Organization [facility] Address [address] [place] [id number] Care Team Providers Care Prop Cutter Name Role Phone Unavailable Primary Care Provider Unavailabl e Encounter Details Date Type Department Care Team (Late st Contact Info) Description 12/27/2020 Transcribed Document [facility] [place] [address] [place] [address] ProviderMacrina MD [address] [place], [place] [phone] Social History Tobacco Use Types Packs/Day Years Used Date Smoking Tobacco: Never Assessed Sex and Gender Information Value Date Recorded Sex Assigned at Not on file Legal Sex Male 1:13 PM CDT Gender Identity Not on file Sexual Orientation Not on file documented as of this encounter Miscellaneous Notes * Cerner Conversion Note - Historical ProviderMD - 12/27/2020 5:00 PM CDT Chart Check - Review Order Profile Entered On: 12/27/2020 22:21 EDT Performed On: 12/27/2020 17:00 EDT by Manny Spencer RN Chart Check Powerplans Initiated/Discontinued as Appropriate : Yes All Active Orders Reviewed : Yes Manny Spencer RN - 12/27/2020 22:21 EDT documented in this encounter Plan of Treatment Not on file documented as of this encounter Visit Diagnoses Not on filedocumented in this encounter
--- OUTSIDE RECORDS SUMMARY | 2025-01-05 12:54 | XMS_ITS | Encounter Summary ---
Author Organization [facility] Address [address] [place] [address] Care Team Providers Care Trader Name Role Phone Unavailable Primary Care Provider Unavailabl e Encounter Details Date Type Department Care Team (Late st Contact Info) Description 12/29/2020 Transcribed Document [address] [address] Abby Rodrigues MD [address] [place] [address] Social History Tobacco Use Types Packs/Day Years Used Date Smoking Tobacco: Never Assessed Sex and Gender Information Value Date Recorded Sex Assigned at Not on file Legal Sex Male 1:13 PM CDT Gender Identity Not on file Sexual Orientation Not on file documented as of this encounter Miscellaneous Notes * Cerner Conversion Note - Abby Rodrigues MD - 12/29/2020 9:08 AM EDT Patient: JOSE ADORNO Age: 80 years Sex: Male : 1940 Associated Diagnoses: None Author: ABBY RODRIGUES MD-CAR Basic Information PCP: Robert Batista MD Primary Collar Cutter: Arthur Gomez MD Subjective mechanical vent, not waking up. not moving left arm or leg with stimuli. CT head pending. Health Status Current medications: (Selected) Inpatient Medications Ordered Ambien: 5 mg, Oral, At Bedtime, PRN: Sleep Ancef: 2 Gram, 50 mL, 100 mL/Hr, IV Piggyback, 1-Time D5W 1,000 mL: 50 mL/Hr, IntraVENous Dextrose: 25 Gram, IV Push, 1-Time, PRN: Hypoglycemia Dextrose: 25 Gram, IV Push, 1-Time, PRN: Hypoglycemia Dulcolax Laxative: 10 mg, Rectal, Daily, PRN: Constipation DuoNeb 0.5 mg-2.5 mg/3 mL inhalation solution: 3 mL, Nebulized Inhalation, RT_Q4H, PRN: Shortness of Breath EPINEPHrine injection 10 mg + NaCl 0.9% for drip 250 mL: TITRATE, IntraVENous Lactated Ringers Injection intravenous solution 1,000 mL: 20 mL/Hr, IntraVENous Lasix: 20 mg, IV Push, 1-Time, PRN: Other (See Comment) Lipitor: 20 mg, Oral, At Bedtime Milk of Magnesia 8% oral suspension: 30 mL, Oral, Daily, PRN: Constipation NORepinephrine injection 4 mg + NaCl 0.9% for drip 250 mL: Titrate, IntraVENous Nitrostat: 0.4 mg, SubLINgual, Q5Min, PRN: Chest Pain Normal Saline Flush: 10 mL, IV Push, Q12H Normal Saline Flush: 10 mL, IV Push, See Comment, PRN: IV Use Pepcid: 20 mg, IV Push, BID Reglan: 10 mg, IV Push, Q6H, PRN: Nausea/Vomiting Reglan: 10 mg, Oral, Q6H, PRN: Nausea/Vomiting Senokot S: 1 Tab, Oral, BID Senokot: 17.2 mg, Oral, At Bedtime Sodium Chloride 0.9% intravenous solution 500 mL: 30 mL/Hr, IntraVENous Tylenol: 650 mg, Oral, Q4H, PRN: Temperature Zofran: 4 mg, IV Push, Q4H, PRN: Nausea acetaminophen-HYDROcodone 325 mg-5 mg oral tablet: 2 Tab, Oral, Q4H, PRN: Pain (Moderate 4-6) albumin human 5% intravenous solution: 12.5 Gram, 250 mL, IntraVENous, Daily, PRN: Other (See Comment) amLODIPine: 5 mg, Oral, Daily ascorbic acid: 500 mg, Oral, BID aspirin: 81 mg, Oral, Daily atorvastatin: 40 mg, Oral, At Bedtime calcium gluconate: 1 Gram, 10 mL, 60 mL/Hr, IV Piggyback, 1-Time, PRN: Other (See Comment) dexmedeTOMIDine injection 400 mcg + NaCl 0.9% for drip 100 mL: Titrate, IntraVENous fentaNYL injection 1,000 mcg + NaCl 0.9% Premix Diluent 100 mL: Titrate, IntraVENous gabapentin: 300 mg, Oral, Daily gabapentin: 600 mg, Oral, At Bedtime insulin regular 50 kg - 75 k kg - 75 kg scale, SubCutaneous, Q6H lisinopril: 10 mg, Oral, BID metoprolol tartrate: 12.5 mg, Oral, BID morphine: 2 mg, IV Push, Q30Min, PRN: Pain (Severe 7-10) niCARdipine injection 25 mg + NaCl 0.9% for drip 250 mL: TITRATE, IntraVENous oxyCODONE: 5 mg, Oral, Q6H, PRN: Pain (Moderate 4-6) phenylephrine 20 mg + Sodium Chloride 0.9% intravenous solution 250 mL: TITRATE, IntraVENous potassium chloride 10 mEq/50 mL intravenous solution: 10 mEq, 50 mL, 50 mL/Hr, IV Piggyback, Q1H, PRN: Other (See Comment) propofol injection 1,000 mg + Premix Diluent for Drip 100 mL: TITRATE, IntraVENous sodium bicarbonate: 100 mEq, IV Push, 1-Time, PRN: Other (See Comment) sodium bicarbonate: 50 mEq, IV Push, 1-Time, PRN: Other (See Comment) vasopressin injection 20 Units + NaCl 0.9% for drip 100 mL: Titrate, IntraVENous, Home Medications (6) Active amLODIPine 5 mg, Oral, Daily atorvastatin 20 mg oral tablet , Oral, At Bedtime gabapentin 300 mg, Oral, Daily gabapentin 600 mg, Oral, At Bedtime lisinopril 10 mg oral tablet 10 mg = 1 Tab, Oral, BID PriLOSEC 10 mg, Oral, BID , Medications (47) Active Scheduled: (15) #NaCl 0.9% *FLUSH* inj 10 mL 10 mL, IV Push, Q12H amLODIPine 5 mg tab 5 mg 1 Tab, Oral, Daily ascorbic acid 500 mg tab 500 mg 1 Tab, Oral, BID aspirin 81 mg chew tab 81 mg 1 Tab, Oral, Daily atorvastatin 20 mg tab 20 mg 1 Tab, Oral, At Bedtime atorvastatin 40 mg tab 40 mg 1 [...] Intake and Output 24 hour intake: Total 3,360 ml 24 hour output: Total 7,235 ml VS/Measurements Vital Signs/Vital Measures 12/29/2020 8:05 EDT Heart Rate Monitored 70 bpm Respiratory Rate 14 Breaths/Min Oxygen Saturation 99 % 12/29/2020 6:00 EDT Systolic Blood Pressure 114 mmHg Diastolic Blood Pressure 59 mmHg LOW Mean Arterial Pressure (MAP)-BMDI 82 Systolic BP, Arterial Line 1 121 mmHg Diastolic BP, Arterial Line 1 48 mmHg LOW Mean Arterial Pressure, Line 1 69 mmHg , Vitals Signs (last 24 hrs) Last Charted Minimum Maximum Mon HR 70 (DEC 29 08:05) 60 (DEC 28 17:00) 84 (DEC 29 05:00) Resp Rate 14 (DEC 29 08:05) 14 (DEC 28 14:00) 16 (DEC 28 09:00) SBP 114 (DEC 29:) L 77 (DEC 28 12:00) H 150 (DEC 29:) DBP L 59 (DEC 29:00) L 45 (DEC 28 12:) 70 (DEC 29 05:) MAP 69 (DEC 29 06:00) 57 (DEC 28 11:03) 101 (DEC 29 05:) SpO2 99 (DEC 29:05) L 85 (DEC 28:03) 100 (DEC 28:) General: Intubated/Sedated. Eye: Normal conjunctiva. HENT: Normocephalic. Respiratory: Symmetrical chest wall expansion. Breath sounds: Bilateral, Rhonchi present. Support: Ventilator. Cardiovascular: Normal rate, Regular rhythm, Good pulses equal in all extremities. Gastrointestinal: Soft, Non-distended, Normal bowel sounds. Genitourinary: indwelling rocha catheter. Musculoskeletal: No deformity. Integumentary: Warm, Dry, Incision site: C/D/I. Neurologic: Intubated/Sedated. Psychiatric: Intubated/Sedated. Results Review DEC 29 01:15 145 H 114 17 / H 114 3.8 29 1.00 \ DEC 29 01:15 \ L 8.3 / H 10.8 L 96 / L 24.4 \ Cardiac Markers (Current Encounter/Past 24 Hours) No Cardiac Marker Results Found (Past 24 Hours) Radiology Results (Last 48 hours) [id number] -- 12/27/2020 06:39 CR Chest 1 Vw Portable (12/27/2020 13:05) Result: PORTABLE CHEST 12/27/2020 12:52 PM HISTORY: Dyspnea.COMPARISON: December 25, 2020.FINDINGS: The endotracheal tube is in good position. There is an NG tubeidentified with its tip coursing below the diaphragm . The heart is normal in size . The mediastinum is unremarkable . Prominent interstitial changes are noted, likely secondary to interstitial edema.The lungs are hypoaerated. There is no pneumothorax . The osseousstructures are unremarkable . IMPRESSION: Prominent interstitial changes are likely secondary tointerstitial edema. Continued follow-up is recommended .Images reviewed, interpreted, and dictated by Dr. Brayan Pratt.Transcribed by Mynor Mullins (R).I have personally viewed, interpreted and dictated the examination. Ihave read and agree with the above final transcribed report. CR Chest 1 Vw Portable (12/27/2020 14:53) Result: PORTABLE CHEST HISTORY: Central line placement.COMPARISON: 1 hour prior.FINDINGS: The heart is mild to moderately enlarged. There is bibasilaratelectasis. There is no pneumothorax. A new right IJ central venouscatheter tip is in the SVC. Other support devices are stable. IMPRESSION: Right IJ central venous catheter in SVC withoutpneumothorax. Films reviewed , interpreted and dictated by Dr. Alva.Transcribed by Dov Colby PA-C.I have personally viewed, interpreted and dictated the examination. Ihave read and agree with the above final transcribed report. CR Chest 1 Vw Portable (12/27/2020 18:59) [...] personally viewed, interpreted and dictated the examination. Hammad read and agree with the above final transcribed report. TAVR 12/27/2020 PROCEDURES PERFORMED: 1. Transcatheter aortic [...] Apical perforation/Acute tamponade s/p pericardiocentesis and surgical repain of LV [place]. PEA Arrest; CODE called 10 minutes to ROSC Mediastinal hemorrhage/Cardiac tamponade s/p emergent sternotomy; repair of left ventricular teat 12/27/2020 - Mechanical vent placed during surgery acute blood loss anemia s/p multiple blood products including 4 units of PRBCs, cryoprecipitate, platelets, and fresh frozen plasma Hypertension Nonischemic cardiomyopathy Neurologic changes awaiting CT PLAN; 12/29/[address] continue supportive care. 12/28/2020 Wean levophed. Possible extubation today. 12/27/2020 Transthoracic Aortic Valve Replacement. Risks and Benefits discussed. Patient Wishes to proceed. Further plans to follow post TAVR. documented in this encounter Plan of Treatment Not on file documented as of this encounter Visit Diagnoses Not on filedocumented in this encounter
--- OUTSIDE RECORDS SUMMARY | 2025-01-05 12:54 | XMS_ITS | Encounter Summary ---
Author Organization [facility] Address [address] [place] [address] Care Team Providers Care Door Maker Name Role Phone Unavailable Primary Care Provider Unavailabl e Encounter Details Date Type Department Care Team (Late st Contact Info) Description 12/27/2020 Transcribed Document [facility] Cardiology [address] [place] [address] Enrique Valle MD [address] [facility] [address] [place] [id number] Social History Tobacco Use Types Packs/Day Years Used Date Smoking Tobacco: Never Assessed Sex and Gender Information Value Date Recorded Sex Assigned at Not on file Legal Sex Male 1:13 PM CDT Gender Identity Not on file Sexual Orientation Not on file documented as of this encounter Miscellaneous Notes * Cerner Conversion Note - Enrique Valle MD - 12/27/2020 1:08 PM EDT DATE OF SERVICE: 12/27/2020 CATHETERIZATION REPORT INDICATION: An 80-year-old male with severe aortic valve stenosis. PROCEDURES PERFORMED: 1. Transcatheter aortic valve replacement using a 29 mm Andrew 3 bioprosthesis via close transfemoral approach. 2. Supravalvular aortography. 3. Temporary transvenous pacemaker insertion. 4. Ultrasound-guided pericardiocentesis for acute tamponade. 5. Cardiopulmonary resuscitation from hypotensive arrest due to left ventricular apical perforation and the tamponade. OPERATORS: 1. Arthur Gomez MD. 2. Cuauhtemoc Gresham MD. 3. Enrique Valle MD. PROCEDURAL DETAILS: The full and complete details are dictated in separate reports from the first and second operators. As a third swinging cut off saw operator participated in the procedure including image interpretation, vascular access and closure, preparation of wires and catheters and verification of valve orientation. This procedure was going as planned until the time when the valve was across the yurok aortic valve and being positioned when the patient developed hypotension. The valve was then deployed successfully with good placement and stability, however, significant hypotension persisted. Despite medications including epinephrine, a low pulse pressure and blood pressure were noted. Chest compressions were initiated. Transthoracic echocardiogram revealed a new pericardial effusion. Pericardiocentesis kit was prepared and the drape was pulled back and pericardiocentesis was performed with aspiration of bloody fluid. Hemodynamics stabilized after this maneuver and there was resolution of the pericardial effusion on transthoracic echocardiogram. We reinserted the pigtail catheter and did a supravalvular aortogram which showed perfect placement of the valve and no evidence of dye extravasation from the aorta. We then put the pigtail catheter in the LV cavity and performed a left ventriculogram which revealed an LV perforation at the apex apparently from the wire or valve nose cone. Heparin was reversed and appeared that the perforation was the ceiling itself. The pericardial drain was remained in place and hooked to drainage. Of course, IV fluids were administered. Intubation was not required. The patient woke up from sedation and remained stable for some time. He was transferred to the cardiothoracic ICU after the groin sheaths were successfully removed. CONCLUSION: Transcatheter aortic valve replacement using a 29 mm Andrew 3 bioprosthesis via closed transfemoral approach. The procedure was complicated by LV apical perforation and pericardial tamponade, which was successfully relieved with pericardiocentesis. The patient will be transferred to the cardiothoracic ICU for further monitoring of the pericardial effusion and drainage and critical care management. /[id number] MD NIXON Gandhi/AQ / MWRima / MODL /[id number] documented in this encounter Plan of Treatment Not on file documented as of this encounter Visit Diagnoses Not on filedocumented in this encounter
--- OUTSIDE RECORDS SUMMARY | 2025-01-05 12:54 | XMS_ITS | Encounter Summary ---
Author Organization [facility] Address [address] [place] [address] Care Team Providers Care Platen Press Feeder Name Role Phone Unavailable Primary Care Provider Unavailabl e Encounter Details Date Type Department Care Team (Late st Contact Info) Description 12/27/2020 Transcribed Document [facility] Family Medicine [address] [place] [address] ProviderMacrina MD [address] [id number] Social History Tobacco Use Types Packs/Day Years Used Date Smoking Tobacco: Never Assessed Sex and Gender Information Value Date Recorded Sex Assigned at Not on file Legal Sex Male 1:13 PM CDT Gender Identity Not on file Sexual Orientation Not on file documented as of this encounter Miscellaneous Notes * Cerner Conversion Note - Macrina ProviderMD - 12/27/2020 11:45 AM CDT Spiritual Care Assessment Entered On: 12/27/2020 12:09 EDT Performed On: 12/27/2020 11:45 EDT by BRISSA SULLIVAN General Information Initial Visit : No Referred by : Code Referral Reason Comment : Code [facility] Provided to : Family/Significant other BRISSA SULLIVAN - 12/27/2020 12:08 EDT Spiritual Assessment Spiritual Assessment Comment/Summary Points : Provided crisis support, prayer and hospitality to during and following code. Plan to follow for support. Spirital Assessment Comment/Summary Report : SPIRITUAL ASSESSMENT COMMENT/SUMMARY Spiritual Assessment Comment/Summary 12/27/20 06:40:00 Provided pre-surgery visit and prayer with patient and . Signed By: BRISSA SULLIVAN SCOTT P - 12/27/2020 12:08 EDT Interventions Emotional Support : Empathic/Engaged listening, Feelings expressed, Hope strengths identified Spiritual and Confucianism : Prayer shared, Spiritual/Confucianism support provided BRISSA SULLIVAN 12/27/2020 12:08 EDT Electronically signed by Elmer, [facility] Conversion Infection Prevention Practitioner Cerner at 11/10/2022 9:07 AM CDT documented in this encounter Plan of Treatment Not on file documented as of this encounter Visit Diagnoses Not on filedocumented in this encounter
--- OUTSIDE RECORDS SUMMARY | 2025-01-05 12:54 | XMS_ITS | Encounter Summary ---
Author Organization [facility] Address [address] [place] [address] Care Team Providers Care Wafer Cleaner Name Role Phone Unavailable Primary Care Provider Unavailabl e Encounter Details Date Type Department Care Team (Late st Contact Info) Description 01/07/2021 Transcribed Document [facility] Family Medicine [address] [place] [address] ProviderMacrina MD [address] [place] [address] Social History Tobacco Use Types Packs/Day Years Used Date Smoking Tobacco: Never Assessed Sex and Gender Information Value Date Recorded Sex Assigned at Not on file Legal Sex Male 1:13 PM CDT Gender Identity Not on file Sexual Orientation Not on file documented as of this encounter Miscellaneous Notes * Cerner Conversion Note - Macrina ProviderMD - 01/07/2021 10:06 AM CDT Language/Communication/Cognition Eval Entered On: 01/07/2021 15:15 EDT Performed On: 01/07/2021 14:30 EDT by ANDREIA TITUS, WOOD PILER General Information Visit Type, WOOD PILER : Initial evaluation Patient Orders : Speech Language Pathology Additional Tx -111 Start: 01/07/21 10:25:00 EDT, For Dysphagia, Continuous Order - Speech Language Pathology Evaluation and Treatment - Start: 01/07/21 10:06:00 EDT, Routine, For Speech Language Cognitive Eval and Treat -111 ANTHONY JACOBO PA Admission Date : Admission Date/Time: 12/27/20 06:39:00 Medical Chart Reviewed, WOOD PILER : Yes Personal Devices : Personal Devices [...] stenosis 12/28/2020 12:00 Polyneuropathy, unspecified Therapy Diagnosis, WOOD PILER : Patient presents with mild cognitive impairment and moderate to severe dysarthria. Will initiate tx. Precautions in Place : Fall prevention measures Previous Speech/Language Evaluations : none Previous Swallow Precautions : none in EMR Previous Cognitive Evaluations : none Diet/Intake Prior to Current Admission : regular Diet/Intake During Current Admission : NPO with corpak Intubation Comment, WOOD PILER : 12/27-12/31, reintubated 01/01-01/05 Vital Signs RTF [...] nasal 02 ANDREIA TITUS SLP - 01/07/2021 15:02 EDT General Status Patient Received Status, WOOD PILER : Long sitting in bed Patient Left Status, WOOD PILER : Long sitting in bed ANDREIA TITUS SLP - 01/07/2021 15:02 EDT Motor Speech Intelligible Speech for Daily Living, Motor Sp : Impaired ANDREIA TITUS SLP - 01/07/2021 15:02 EDT Memory Memory for Daily Living : Impaired ANDREIA TITUS SLP - 01/07/2021 15:02 EDT Problem Solving Problem Solving for Daily Living : Impaired ANDREIA TITUS, BENJY - 01/07/2021 15:02 EDT Evaluation Methods Types of Evaluation, WOOD PILER : Formal and subtests Formal and Subtests Eval Types, All Ages : Eliezer Cognitive Assessment (MOCA) MOCA Attention : 4 MOCA Language : 2 MOCA Abstration : 2 MOCA Delayed Recall : 2 MOCA Orientation : 3 MoCA Years of Formal Education : Equal or less than 12 years ANDREIA TITUS SLP - 01/07/2021 15:02 EDT LCC Impressions Impressions, Speech/Lang/Cog : Dysarthria, Cognitive impairment Dysarthria Type, Motor Speech : Flaccid Dysarthria Severity : Moderate Cognitive Impairment : Impaired problem solving, Impaired memory, Impaired executive function Cognitive Impairment Severity : Mild LCC Overall Impressions : Patient given the MOCA blind, given his history of cataract surgery and blurry vision. He scored a 15/22 with 18/ 22 being a normal score. His deficit areas include delayed memory and problem solving. His speech is moderately to severely dysarthric, with poor intelligibilty much of the time. Will initiate tx for speech/ cognition. Patient agreeable. ANDREIA TITUS SLP - 01/07/2021 15:02 EDT Therapy Indication Assessment WOOD PILER Indicated : Yes WOOD PILER Problem List : Impaired, Memory, Impaired, Motor Speech Potential Barriers to WOOD PILER : Cognitive deficit WOOD PILER Rehabilitation Potential : Good ANDREIA TITUS SLP - 01/07/2021 15:02 EDT LTG Lang/Comm/Cog LTG WOOD PILER Group Home Goal 1 Spray Gun Operator Goal 2 Goals : Improved memory in order to complete functional task(s) upon discharge Improved problem solving in order to complete functional task(s) upon discharge Status : Initial Initial ANDREIA TITUS SLP - 01/07/2021 15:02 EDT ANDREIA TITUS SLP - 01/07/2021 15:02 EDT STG Lang_Comm_Cog Treatment Frequency, LCC : 5 times per wk Treatment Plan Est w/Pt/Caregvr, LCC : Yes Treatment Duration, LCC : Two weeks Therapy at Next Level of Care, LCC : Acute inpatient rehab, long-term facility ANDREIA TITUS SLP - 01/07/2021 15:02 EDT WOOD PILER Education STG Grid Goal #1 Activity : Other: Pt's goal is to get out of the hospital ANDREIA TITUS SLP - 01/07/2021 15:02 EDT Motor Speech STG Grid Goal #1 Activity : Use compensatory strategies to improve speech intelligibility Comp Strategies : Slow rate, Overarticulation, Increased loudness Status : Initial ANDREIA TITUS SLP - 01/07/2021 15:02 EDT Memory STG Grid Goal #1 Goal #2 Activity : Improve temporal orientation (recent memory) Improve short term functional delayed Status : Initial Initial ANDREIA TITUS SLP - 01/07/2021 15:02 EDT ANDREIA TITUS SLP - 01/07/2021 15:02 EDT Problem Solving STG Grid Goal #1 Goal #2 Goal #3 Activity : Improve money management Generate a list of complex/abstract items Improve time management Status : Initial Initial Initial ANDREIA TITUS SLP - 01/07/2021 15:02 EDT ANDREIA TITUS SLP - 01/07/2021 15:02 EDT ANDREIA TITUS SLP - 01/07/2021 15:02 EDT Education Barriers To Learning : Cognitive deficit Individuals Taught : Patient, Family member Readiness to Learn : Cooperative Readiness to Learn : Explanation ANDREIA TITUS SLP - 01/07/2021 15:02 EDT WOOD PILER Education Assessment Grid 1 Communication, Effects of Impairment : Verbalizes understanding Communication, Strategies For Patient : Verbalizes understanding Evaluation Results : Verbalizes understanding ANDREIA TITUS SLP - 01/07/2021 15:[address] [facility] Charg[facility] Assessment of Cognition : 1 ANDREIA TITUS SLP - 01/07/2021 15:02 EDT documented in this encounter Plan of Treatment Not on file documented as of this encounter Visit Diagnoses Not on filedocumented in this encounter
--- OUTSIDE RECORDS SUMMARY | 2025-01-05 12:54 | XMS_ITS | Encounter Summary ---
[facility] Organization [facility] [place] Address [address] [place] [id number] Care Team Providers Care Solo Truck Driver Name Role Phone Unavailable Primary Care Provider Unavailabl e Encounter Details Date Type Department Care Team (Late st Contact Info) Description 01/02/2021 Transcribed Document [facility] Family Medicine [address] [place] [address] ProviderMacrina MD [address] [place] [address] Social History Tobacco Use Types Packs/Day Years Used Date Smoking Tobacco: Never Assessed Sex and Gender Information Value Date Recorded Sex Assigned at Not on file Legal Sex Male 1:13 PM CDT Gender Identity Not on file Sexual Orientation Not on file documented as of this encounter Miscellaneous Notes * Cerner Conversion Note - Macrina Cordova MD - 01/02/2021 11:14 AM CDT Patient: JOSE ADORNO Age: 80 years Sex: Male : 1940 Associated Diagnoses: None Author: ANANDA QUILES MD-ZURDO Subjective Pt is sedated on vent but able to rouse and follow commands; no family in room Objective VS/Measurements Vital Signs/Vital Measures 01/02/2021 9:00 EDT Systolic Blood Pressure 92 mmHg Diastolic Blood Pressure 54 mmHg LOW Clinical Temperature, F 99.9 Deg F Heart Rate, Apical Not Done: Not Appropriate at this Time (Not Done) General: Pt is intubated and sedated; does rouse to voice, able to shake/nod head to questions and follows commands (on left). Eye: Pupils are equal, round and reactive to light, Extraocular movements are intact, likely left gaze preference. Respiratory: intubated. Cardiovascular: Normal rate, Regular rhythm. Neurologic: Facial movements not well assessed, suspect there is left gaze preference; CN otherwise grossly intact. He is able to move left side well with full strength, RUE is flaccid and RLE is weak. Results Review Labs reviewed Carotid dopplers- no significant stenosis MRI brain pending Impression and Plan 80yo M with h/o severe aortic stenosis admitted for TAVR after worsening weakness and fatigue; it was recommended to have this procedure a year ago but patient declined at that point. He is s/p TAVR 12/27 with post-op course complicated by cardiac arrest, cardiac tamponade due to pericardial hemorrhage and ongoing resp failure. He was noted to have weakness of right side several days ago concerning for stroke; CT head on 12/29 did not show any significant findings and an MRI brain is pending. I suspect he has had a stroke, possibly due to hypotension and cerebral hypoperfusion with cardiac arrest post-operatively. Stroke protocol orders in place, he is on aspirin and statin; will follow up results of MRI when completed. He will need PT/OT/speech therapy when possible and likely inpatient rehab when ready for discharge. I have discussed with Dr Navarro today, discussed with in room yesterday; I will follow. documented in this encounter Plan of Treatment Not on file documented as of this encounter Visit Diagnoses Not on filedocumented in this encounter
--- OUTSIDE RECORDS SUMMARY | 2025-01-05 12:54 | XMS_ITS | Encounter Summary ---
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 Role Phone Unavailable Primary Care Provider Unavailabl e Encounter Details Date Type Department Care Team (Late st Contact Info) Description 01/07/2021 Transcribed Document [facility] Cardiology [address] [place] [address] Danyelle Gomez MD [address] [facility] [address] [place] [id number] Social History Tobacco Use Types Packs/Day Years Used Date Smoking Tobacco: Never Assessed Sex and Gender Information Value Date Recorded Sex Assigned at Not on file Legal Sex Male 1:13 PM CDT Gender Identity Not on file Sexual Orientation Not on file documented as of this encounter Miscellaneous Notes * Cerner Conversion Note - Danyelle Gomez MD - 01/07/2021 8:45 AM EDT Patient: JOSE ADORNO Age: 80 years Sex: Male : 1940 Associated Diagnoses: None Author: DANYELLE GOMEZ MD-CAR Basic Information PCP: Robert Batista MD Primary Client Advisor: Danyelle Gomez MD Subjective Extubated 01/05/21, sitting in bed, NAD. Health Status Current medications: Home Medications (6) [...] = 1 Tab, Oral, BID , Medications (39) Active Scheduled: (17) #NaCl 0.9% *FLUSH* inj 10 mL 10 mL, IV Push, Q12H albuterol-ipratropium inh 3 mL 3 mL, Nebulized Inhalation, RT_Q6H aspirin 81 mg chew tab 81 mg 1 Tab, Oral, Daily atorvastatin 40 mg tab 40 mg 1 Tab, Oral, At Bedtime ceFAZolin/D5w 2 Gram 50 mL, IV Piggyback, 1-Time cefEPIME + NaCl 0.9% 50 mL 1,000 mg, IV Piggyback, Q6H docusate sod 100 mg/10 mL liq 100 mg 10 mL, Oral, BID gabapentin 300 mg cap 300 mg 1 Cap, Oral, Daily gabapentin 600 mg tab 600 mg 1 Tab, Oral, At Bedtime guaiFENesin 200 mg/10 mL liq 200 mg 10 mL, Oral, Q6H insulin regular 1 unit/0.01 mL inj 3mL 50 kg - 75 kg scale, SubCutaneous, Q6H lactobacillus acidophilus cap 1 Cap, Oral, BID lisinopril 20 mg tab 20 mg 1 Tab, Oral, BID metoprolol tartrate 25 mg tab 25 mg 1 Tab, Oral, Q6H pantoprazole 40 mg inj 40 mg, IV Push, Daily polyethylene glycol 3350 pwd 17 g pkt 17 Gram 1 Packet, Oral, Daily senna 8.8 mg/5 mL liq 15 mL 8.8 mg 5 mL, Oral, BID Continuous: (4) dexmedeTOMIDine 400 mcg + NaCl 0.9% TITRATE 100 mL 100 mL, IntraVENous fentaNYL 1,000 mcg + Premix Diluent NaCl 0.9% TITRATE 100 mL 100 mL, IntraVENous niCARdipine 25 mg + NaCl 0.9% T ITRATE 250 mL 250 mL, IntraVENous NORepinephrine 4 mg + NaCl 0.9% T ITRATE 250 mL 250 mL, IntraVENous PRN: (18) #NaCl 0.9% *FLUSH* inj 10 mL 10 [...] 25 Gram 50 mL, IV Push, 1-Time hydrALAZINE 20 mg/1 mL inj 10 mg 0.5 mL, IV Push, Q6H magnesium hydroxide 8% liq 30 mL 30 [...] Intake and Output 24 hour intake: Total 1,145 ml 24 hour output: Total 2,690 ml VS/Measurements Vitals Signs (last 24 hrs) Last Charted Minimum Maximum Apical HR H 109 (JAN 07 05:46) 100 (JAN 06 09:41) H 120 (JAN 07 00:38) Mon HR 109 (JAN 07 06:08) 85 (JAN 06 11:00) 124 (JAN 06 23:30) Resp Rate H 36 (JAN 07 06:08) L 12 (JAN 06 09:00) H 36 (JAN 07 06:08) SBP 131 (JAN 07 05:00) 90 (JAN 06 22:00) H 177 (JAN 06 16:00) DBP 66 (JAN 07 05:00) L 53 (JAN 06 22:00) 85 (JAN 06 23:30) MAP 92 (JAN 07 05:) 68 (JAN 06 22:00) 120 (JAN 06 16:00) SpO2 99 (JAN 07 06:08) L 92 (JAN 06 19:00) 100 (JAN 06 10:00) General: Alert and oriented, No acute distress. Eye: Normal conjunctiva. HENT: Normocephalic. Respiratory: Symmetrical chest wall expansion. Breath sounds: Bilateral, Rhonchi present. Support: Oxygen ( 4 L/min ), Oxygen delivery method ( Nasal cannula ). Cardiovascular: Normal rate, Regular rhythm, Good pulses equal in all extremities. Gastrointestinal: Soft, Non-tender, Non-distended, Normal bowel sounds. Genitourinary: indwelling rocha catheter. Musculoskeletal: No deformity. Integumentary: Warm, Dry. Neurologic: Alert, Oriented. Psychiatric: Cooperative, Appropriate mood & affect. Results Review JAN 07 05:24 140 107 H 24 / H 145 4.0 31 0.70 \ JAN 07 05:24 \ L 9.4 / H 15.3 310 / L 29.7 \ Cardiac Markers (Current Encounter/Past 24 Hours) ProBNP 5653 pg/mL DC 01/07/2021 05:56 Radiology Results (Last 48 hours) [id number] -- 12/27/2020 06:39 CT Thoracentesis w/ IMAG Guid RT (01/05/2021 11:30) Result: CT-GUIDED THORACENTESISHISTORY: Pleural effusion.ATTENDING PHYSICIAN: Dr. Youssef DRIVER LICENSE AGENT: LUCÍA Cantor-CTECHNIQUE: Informed consent was obtained from the patient. Theindications and complications were discussed with the patient prior tobeginning the procedure. This included, but was not limited to pain,bleeding, infection, and pneumothorax requiring chest tube placement.The right back was then prepped and draped in sterile fashion. 1%Lidocaine was used for local anesthesia. Utilizing CT guidance, astandard thoracentesis needle and sheath were inserted into the pleuralspace and approximately 900 cc of serosanguineous pleural fluid wassuccessfully removed without complication. The patient tolerated theprocedure well. IMPRESSION: Technically successful CT guided right-sided thoracentesisas above. Images reviewed, interpreted, and dictated by Dr. Bebeto Avelar.Transcribed by Enrique Stinson PA-C.I have personally viewed, interpreted and dictated the examination. Ihave read and agree with the above final transcribed report. CR Chest 1 Vw Portable (01/06/2021 04:14) Result: PORTABLE CHESTHISTORY: Coronary artery disease, postop.COMPARISON: 01/05/2021.FINDINGS: A single portable radiograph of the chest was performed. 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 The patient has been extubated. The heartis normal in size. There is been significant improvement in thebilateral pleural effusions and basilar opacities. Left base probableatelectasis remains. There are minimal effusions. There is no edema orpneumothorax.IMPRESSION:Extubation with significant improvement in bilateral effusions andbasilar opacities. There is some left base probable atelectasisremaining. There is no edema. Images reviewed, interpreted, and dictated by Bebeto Avelar MD CR Chest 1 Vw Portable (01/07/2021 03:11) Result: PORTABLE CHEST; HISTORY: Pneumonia.COMPARISON: 01/06/2021.FINDINGS: The support tubes and lines are stable in position. 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 The heart is enlarged. There is calcifiedplaque in the aorta. The mediastinum is unremarkable. There isincreasing pulmonary vascular congestion with worsening bilateralpleural effusions and basilar atelectasis There is no pneumothorax. IMPRESSION: Increasing pulmonary vascular congestion with worseningbilateral pleural effusions and basilar atelectasis.Images reviewed, interpreted, and dictated by Dr. Bebeto Avelar.Transcribed by Lakshmi Franco PA-C. TAVR 12/27/2020 PROCEDURES PERFORMED: 1. Transcatheter aortic [...] s/p pericardiocentesis and surgical repair of LV [place]. PEA Arrest; CODE called 10 minutes to ROSC Mediastinal hemorrhage/Cardiac tamponade s/p emergent sternotomy; repair of left ventricular teat 12/27/2020 - Mechanical vent placed during surgery; extubated 01/05/21 acute blood loss anemia s/p Transfusions: 4 units of PRBCs, cryoprecipitate, platelets, and FFP Hypertension Nonischemic cardiomyopathy Neurologic changes; CVA CT - no acute changes. MRI - Multiple acute infarcts PLAN; 01/07/2021 Doing well today. We will increase Metoprolol to 50mg po every 6 hours for better blood pressure control. Will initiate Bumex 1mg IV BID. Continue to follow. 01/06/2021 Extubated luckily and appears to be moving all limbs. At this juncture, we will address his blood pressure by increasing his beta-blockers. 01/05/2021 Awaiting extubation. I suspect if we can achieve that today the patient will do well eventually. I am hopeful that he will recover neurologically as well. 01/04/2021 Appropriate cardiovascular medication. 4 extubation trial today. We will continue follow-up. 01/03/2021 Intubated sedated following commands more awake today. Cardiovascular medication optimized. Continue medical treatment. 01/02/2021 Supportive care. Appreciate pulmonary input and assistance. 01/01/2021 Extubated this Am. On Bipap. Still have CTs with drainage. Supportive care. 12/31/2020 [...]
--- OUTSIDE RECORDS SUMMARY | 2025-01-05 12:54 | XMS_ITS | Encounter Summary ---
Author Organization [facility] Address [address] [place] [id number] Care Team Providers Care Employee Counselor Name Role Phone Unavailable Primary Care Provider Unavailabl e Encounter Details Date Type Department Care Team (Late st Contact Info) Description 01/07/2021 Transcribed Document [facility] [place] 234 [facility] at the [facility] [place] [address] ProviderMacrina MD [address] [place] [place], [place] [id number] Social History Tobacco Use Types Packs/Day Years Used Date Smoking Tobacco: Never Assessed Sex and Gender Information Value Date Recorded Sex Assigned at Not on file Legal Sex Male 1:13 PM CDT Gender Identity Not on file Sexual Orientation Not on file documented as of this encounter Miscellaneous Notes * Cerner Conversion Note - Macrina Cordova MD - 01/07/2021 3:43 PM CDT Patient: JOSE ADORNO Age: 80 years Sex: Male : 1940 Associated Diagnoses: None Author: HARRISON MUNIZ MD Basic Information HPI: The patient is a [...] balance. WBC 10.8, low grade fevers 100.9 12/30: Remains intubated. No sedation since yesterday evening. Has had 2 percocet and Morphine IV only. Moving all extremities spontaneously but not to command. Eyes open but does not track with eyes. TV440, AC 14, FIO2 75% and Peep 5. Still with 1 MT tube and 1 Pleural tube. Hemodynamically requiring Amio and Cardene gtt. Cr 0.70, good UOP, -86 balance. K+ 3.2, replacing. WBC 13.1, low grade temp 101.1 temp. 12/31: Remains intubated without sedated on PS trial. Drowsy, but awakens and follows commands on left side only. Hemodynamically stable, Tmax 100.9. Remains on Amio gtt. QTc this morning is 547. Leukocytosis worsening, thrombocytopenia improving s/p transfusion of 1 unit platelets yesterday. Creatinine stable, 2.1L UOP and +316mL I&Os. Has remained NPO. Patient assessed multiple times through the day early in the morning, patient is not able to move his right upper extremity moving his right lower extremity very minimal from the proximal however not able to wiggle his toes patient appear weak ET tube with minimal secretion RSB I 32, follows commands appropriately discussed with Dr. resendiz , and on amiodarone however QTC is 544 (stopping amiodarone).. Later patient is extubated was called from the nurse that requirement of oxygen increased to 10 L patient saturation in the 80s appears to have upper airway secretion and very poor cough attended to patient at bedside coud?? catheter was used to suction nasotracheally and patient was placed on a BiPAP sitting position updated his family at bedside patient is a high risk for intubation 01/01: Seen and examined on Bipap 100%. Sedated with Precedex, but does arouse and follow commands on left side only; still no movement noted from right side. Morning CXR with worsening right side effusion/opacities. Continues to require Cardene gtt. Leukocytosis improving, Tmax 100.6. Creatinine stable with diuresis, 4L UOP and -3.4L I&Os. TF started yesterday, but then stopped due to increased respiratory effort. 01/02: Seen and examined. Patient required reintubation yesterday. Just returned from MRI. Sedated on Fentanyl 50 mcg/ hr and Precedex 0.3 mcg/kg/min , he is alert and follows simple commands. Remains on Levophed for hemodynamic support. Tmax 100.4, no leukocytosis. Creatinine 0.80, 1.3L UOP, neutral balance past 24 hrs. Tolerating tube feeding at 40mL/hr. Last BM 12/31. tolerated weaning trial x 2 hours, he is on 01/03: Remains intubated and sedated with Fentanyl 100 micrograms an hour and Precedex 0.5 MCG/KG/. Awake and following commands, positive entry level paralegal in bilateral hands. 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 Hemodynamically stable, Tmax 100.4. Leukocytosis worsening. Creatinine stable, 2.3L UOP and -1.1L I&Os. Tolerating TF. Pneumonia panel + for Klebsiella. Patient underwent SAT/SBT this morning and he tolerated pressure support trial for 2 hours however patient chest x-ray was increased effusion as well as right lower lung infiltrate, + Klebsiella pneumonia 01/04: Remains intubated and sedated. S/P bronch this AM. Sedated on Precedex 0.4 mcg/kg/hr and Fentanyl 50mcg/hr. He is alert and following commands, RASS O. Hemodynamically stable. Tmax 101.3, no leukocytosis. Creatinine 0.80, 3.1L UOP, -839mL balance past 24 hrs. Tolerating tube feeding at goal. No BM. Patient tolerated weaning trial 2 hours twice daily. Patient status post fiberoptic bronchoscopy to evaluate the right lower lung. Minimal secretions noted. Pending CT scan of the chest as well as CT scan. Left upper and left lower extremity is stronger than the right upper and right lower extremity however right upper and right lower are improving overall neuro status is better 01/05: Seen and examined. Remains intubated on mechanical ventilation. Just returned from right sided thoracentesis. S/P 900mL fluid removal. Off all sedation, alert and follows commands. Hemodynamically stable. Tmax 101.3, mild leukocytosis. Creatinine 0.60, 2.3L UOP, -400mL balance past 24 hrs. Tolerating TF. +BM. 01/06: Seen and examined. Extubated yesterday. Now on BIPAP intermittently. Tolerating 6L NC. Cough effort is very weak. Hemodynamically stable. Tmax 100.9, increasing leukocytosis. Creatinine 0.6, 3.7L UOP, -3.4L balance past 24 hrs. Tolerating tube feeding at 20mL/hr. Hypertensive the AM with SBPs 180s. 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; load tester and moves extremities bilaterally but weaker on right. 01/07 Pt seen and examined earlier today. Reports he did not sleep well secondary to NIPPV. Currently on 2L NC CXR with RLL infiltrate possible effusion and pt with cxs with serration and klebsiella, currently on Maxipime. TM 99.9. Has had issues with HTN, medications being adjusted. ICU day: 12 Vent day: 5, extubated 12/31/20 Reintubated 01/01/21, extubated 01/05 TLDL 12/27/20 Intake & Output Totals Last 24 Hours (7a-7a) Intake (39 Events) Medications (264.5 mL) Enteral Additional Water Given (150 mL) Enteral Feeding Amount (790 mL) Output (13 Events) Spence Catheter (2690 mL) Input Total: 1204.5 mL Output Total: 2690 mL Balance: -1485.5 mL Review of Systems Constitutional: Weakness, Fatigue. Eye: Negative. Ear/Nose/Mouth/Throat: Negative. Respiratory: Shortness of breath. Cardiovascular: Chest pain: incisional . Gastrointestinal: Negative. Musculoskeletal: generalized discomfort. Integumentary: Negative. Neurologic: Alert and oriented X4. Psychiatric: Anxiety. Unable to obtain: Follows commands denies abdominal pain denies chest pain. Health Status Allergies: Allergic Reactions (Selected) No Known Allergies, No qualifying data available Current medications: (Selected) Inpatient Medications Ordered Ambien: 5 mg, Oral, At Bedtime, PRN: Sleep Ancef: 2 Gram, 50 mL, 100 mL/Hr, IV Piggyback, 1-Time Bumex: 1 mg, IV Push, BID Dextrose: 25 Gram, IV Push, 1-Time, PRN: Hypoglycemia Dextrose: 25 Gram, IV Push, 1-Time, PRN: Hypoglycemia Dulcolax Laxative: 10 mg, Rectal, Daily, PRN: Constipation DuoNeb 0.5 mg-2.5 mg/3 mL inhalation solution: 3 mL, Nebulized Inhalation, RT_Q4H, PRN: Shortness of Breath DuoNeb 0.5 mg-2.5 mg/3 mL inhalation solution: 3 mL, Nebulized Inhalation, RT_Q6H Maxipime + Sodium Chloride 0.9% intravenous solution 50 mL: 1,000 mg, 100 mL/Hr, IV Piggyback, Q6H Melatonin: 3 mg, Oral, At Bedtime, PRN: Insomnia Milk of Magnesia 8% oral suspension: 30 mL, Oral, Daily, PRN: Constipation MiraLax: 17 Gram, Oral, Daily Mucinex: 200 mg, Oral, Q6H NORepinephrine injection 4 mg + NaCl 0.9% for drip 250 mL: Titrate, IntraVENous Nitrostat: 0.4 mg, SubLINgual, Q5Min, PRN: Chest Pain Normal Saline Flush: 10 mL, IV Push, Q12H Normal Saline Flush: 10 mL, IV Push, See Comment, PRN: IV Use Protonix: 40 mg, IV Push, Daily Tylenol: 650 mg, Oral, Q4H, PRN: Temperature Zofran: 4 mg, IV Push, Q4H, PRN: Nausea acetaminophen-HYDROcodone 325 mg-5 mg oral tablet: 2 Tab, Oral, Q4H, PRN: Pain (Moderate 4-6) albumin human 5% intravenous solution: 12.5 Gram, 250 mL, IntraVENous, Daily, PRN: Other (See Comment) aspirin: 81 mg, Oral, Daily atorvastatin: 40 mg, Oral, At Bedtime dexmedeTOMIDine injection 400 mcg + NaCl 0.9% for drip 100 mL: Titrate, IntraVENous docusate sodium: 100 mg, Oral, BID fentaNYL injection 1,000 mcg + NaCl 0.9% Premix Diluent 100 mL: Titrate, IntraVENous gabapentin: 300 mg, Oral, Daily gabapentin: 600 mg, Oral, At Bedtime hydrALAZINE: 10 mg, IV Push, Q6H, PRN: Hypertension insulin regular 50 kg - 75 k kg - 75 kg scale, SubCutaneous, Q6H lactobacillus acidophilus: 1 Cap, Oral, BID lisinopril: 20 mg, Oral, BID metoprolol tartrate: 50 mg, Oral, Q6H morphine: 1 mg, IV Push, Q3H, PRN: Pain (Moderate 4-6) niCARdipine injection 25 mg + NaCl 0.9% for drip 250 mL: TITRATE, IntraVENous oxyCODONE: 5 mg, Oral, Q6H, PRN: Pain (Moderate 4-6) potassium chloride 10 mEq/50 mL intravenous solution: 10 mEq, 50 mL, 50 mL/Hr, IV Piggyback, Q1H, PRN: Other (See Comment) senna: 8.8 mg, Oral, BID sodium bicarbonate: 100 mEq, IV Push, 1-Time, PRN: Other (See Comment) sodium bicarbonate: 50 mEq, IV Push, 1-Time, PRN: Other (See Comment) Documented Medications Documented amLODIPine 5 mg oral tablet: 1 Tab, Oral, Daily, for 30 Day(s), 0 Refill(s) atorvastatin 40 mg oral tablet: 1 Tab, Oral, Daily, for 90 Day(s), 0 Refill(s) clopidogrel 75 mg oral tablet: 1 Tab, Oral, Daily, for 90 Day(s), 0 Refill(s) gabapentin 300 mg oral capsule: 1 Cap, Oral, Daily, for 90 Day(s), 0 Refill(s) gabapentin 300 mg oral capsule: 2 Cap, Oral, Once a day (at bedtime), for 90 Day(s), 0 Refill(s) lisinopril 10 mg oral tablet: 1 Tab, Oral, BID, 60 Tab, 0 Refill(s), Medications (41) Active Scheduled: (18) #NaCl 0.9% *FLUSH* inj 10 mL 10 mL, IV Push, Q12H albuterol-ipratropium inh 3 mL 3 mL, Nebulized Inhalation, RT_Q6H aspirin 81 mg chew tab 81 mg 1 Tab, Oral, Daily atorvastatin 40 mg tab 40 mg 1 Tab, Oral, At Bedtime bumetanide 1 mg/4 mL inj 1 mg 4 mL, IV Push, BID ceFAZolin/D5w 2 Gram 50 mL, IV Piggyback, [...] mg 1 Tab, Oral, BID metoprolol tartrate 50 mg tab 50 mg 1 Tab, Oral, Q6H pantoprazole 40 [...] ITRATE 250 mL 250 mL, IntraVENous PRN: (19) #NaCl 0.9% *FLUSH* inj 10 mL 10 [...] liq 30 mL 30 mL, Oral, Daily melatonin 3 mg tab 3 mg 1 Tab, Oral, At Bedtime morphine 2 mg/1 ml inj 1 mg [...] 1 Tab, Oral, At Bedtime Problem list: All Problems Aortic valve stenosis / SNOMED CT 273954684 / Confirmed Arthritis of right knee / SNOMED CT 5079812230 / Confirmed At risk for sleep apnea / IMO [id number] / Confirmed Chronic anxiety / SNOMED CT 262035677 / Confirmed Back pain, chronic / SNOMED CT 826168097 / Confirmed Colorectal surgery / SNOMED CT 0707071807 / Confirmed Disorder of prostate / SNOMED CT 87660245 / Confirmed GERD - Gastro-esophageal reflux disease / SNOMED CT 4002875385 / Confirmed H/O peripheral neuropathy / SNOMED CT 980104547 / Confirmed feet tingle all the time HTN - Hypertension / SNOMED CT 9737595396 / Confirmed Hyperlipidemia / SNOMED CT 53901284 / Confirmed Hypertension / SNOMED CT 59305721 / Confirmed Aortic stenosis, severe / SNOMED CT 5345304562 / Confirmed Resolved: Cancer of colon / SNOMED CT 5968714307, Active Problems (13) Aortic stenosis, severe Aortic valve stenosis Arthritis of right knee At risk for sleep apnea Back pain, chronic Chronic anxiety Colorectal surgery Disorder of prostate GERD - Gastro-esophageal reflux disease H/O peripheral neuropathy HTN - Hypertension Hyperlipidemia Hypertension Physical Examination VS/Measurements Vitals Signs (last 24 hrs) Last Charted Minimum Maximum Apical HR 99 (CESAR 14 11:55) 99 (CESAR 14 11:55) H 120 (CESAR 14 00:38) Mon HR 98 (CESAR 14 15:00) 96 (CESAR 14 13:00) 124 (CESAR 13 23:30) Resp Rate H 28 (CESAR 14 15:00) 15 (CESAR 13 22:00) H 44 (CESAR 14 12:00) SBP H 154 (CESAR 14 15:00) 90 (CESAR 13 22:00) H 178 (CESAR 14 12:00) DBP 82 (CESAR 14 15:00) L 53 (CESAR 13 22:00) H 123 (CESAR 14 14:00) MAP 132 (CESAR 14 14:00) 68 (CESAR 13 22:00) 132 (CESAR 14 14:00) SpO2 94 (CESAR 14 15:00) L 92 (CESAR 13 19:00) 100 (CESAR 13 16:12) Intake & Output Totals Last 24 Hours (7a-7a) Intake (39 Events) Medications (264.5 mL) Enteral Additional Water Given (150 mL) Enteral Feeding Amount (790 mL) Output (13 Events) Spence Catheter (2690 mL) Input Total: 1204.5 mL Output Total: 2690 mL Balance: -1485.5 mL General: frail, elderly and on 2L NC . Eye: Pupils are equal, round and reactive to light, Normal conjunctiva. HENT: Normocephalic. Mouth: Oral mucosa ( Dry ). Neck: Supple, No lymphadenopathy. Respiratory: Breath sounds are equal, Bilateral rhonchi, diminished bases, weak cough effort. removed by cts 01/04 Cardiovascular: Normal rate, Regular rhythm, No edema. Gastrointestinal: Soft, Non-tender, Non-distended, hypoactive throughout. Genitourinary: Support: Urinary catheter ( Indwelling ). Musculoskeletal: No swelling, No deformity. Integumentary: Warm, Dry. Integumentary exam: Pale. Neurologic: Alert, Oriented, weaker on R side, R facial droop. Psychiatric: flat affect. Review / Management Results review: Labs (Last four charted values) WBC H 15.3 (CESAR 14) H 15.8 (CESAR 13) H 9.9 (CESAR 12) 8.0 (CESAR 11) HB L 9.4 (CESAR 14) L 9.2 (CESAR 13) L 7.8 (CESAR 12) L 7.3 (CESAR 11) HCT L 29.7 (CESAR 14) L 28.1 (CESAR 13) L 24.2 (CESAR 12) L 23.4 (CESAR 11) Plt 310 (CESAR 14) 253 (CESAR 13) 174 (CESAR 12) L 143 (CESAR 11) Na 140 (CESAR 14) 138 (CESAR 13) 141 (CESAR 12) 145 (CESAR 11) K 4.0 (CEASR 14) 3.8 (CESAR 13) 4.2 (CESAR 12) 4.1 (CESAR 11) Cl 107 (CESAR 14) 106 (CESAR 13) 111 (CESAR 12) 112 (CESAR 11) CO2 31 (CESAR 14) 28 (CESAR 13) 29 (CESAR 12) 29 (CESAR 11) BUN H 24 (CESAR 14) 22 (CESAR 13) H 24 (CESAR 12) H 25 (CESAR 11) Cr 0.70 (CESAR 14) L 0.60 (CESAR 13) L 0.60 (CESAR 12) 0.80 (CESAR 11) Glu R H 145 (CESAR 14) H 119 (CESAR 13) H 126 (CESAR 12) H 130 (CESAR 11) Ca 8.5 (CESAR 14) L 8.2 (CESAR 13) L 7.8 (CESAR 12) L 8.1 (CESAR 11) Lactic 1.0 (CESAR 13) 1.2 (CESAR 07) 1.4 (CESAR 06) 1.4 (CESAR 06) PT 11.4 (CESAR 04) H 17.4 (CESAR 03) H 14.3 (CESAR 03) H 18.7 (CESAR 03) INR 1.1 (CESAR 04) H 1.7 (CESAR 03) H 1.4 (CESAR 03) H 1.8 (CESAR 03) PTT 27.8 (CESAR 05) H 62.4 (CESAR 03) H 37.3 (CESAR 03) H 55.9 (CESAR 03) AST 35 (CESAR 14) H 41 (CESAR 13) H 46 (CESAR 12) 32 (CESAR 11) ALT 40 (CESAR 14) 49 (CESAR 13) 46 (CESAR 12) 35 (CESAR 11) ALK P 92 (CESAR 14) 80 (CESAR 13) 63 (CESAR 12) 63 (CESAR 11) T Bili H 1.3 (CESAR 14) H 1.8 (CESAR 13) 1.1 (CESAR 12) H 1.5 (CESAR 11) PTN L 6.1 (CESAR 14) L 6.1 (CESAR 13) L 5.3 (CESAR 12) L 5.2 (CESAR 11) ALB L 2.4 (CESAR 14) L 2.5 (CESAR 13) L 2.2 (CESAR 12) L 2.3 (CESAR 11) Troponin <0.015 (CESAR 01) . Blood Gases (Current Encounter/Past 24 Hours) No Blood Gas Results Found (Past 24 Hours) JAN 07 05:24 140 107 H 24 / H 145 4.0 31 0.70 \ JAN 07 05:24 \ L 9.4 / H 15.3 310 / L 29.7 \ Blood Gases (Current Encounter/Past 24 Hours) No Blood Gas Results Found (Past 24 Hours) Radiology Results (Last 48 hours) [id number] -- 12/27/2020 06:39 CR Chest 1 Vw Portable (01/06/2021 04:14) [...] by Dr. Bebeto Avelar.Transcribed by Lakshmi Franco PA-C.I have personally viewed, interpreted and dictated the examination. Ihave read and agree with the above final transcribed report. MRI of the brain was reported to have multiple acute infarcts bilateral mastoiditis. CT scan of the chest 01/04 revealed a left greater than right dependent pleural effusion. Bibasilar atelectasis ET tube is in appropriate place 12/14/2020 PFTS SPIROMETRY: 1. FVC 3.77 L, [...] 4.10cm. No masses or thrombi are seen. 12/28: Impression: Mild left ventricular hypertrophy. Visually estimated ejection fraction 65% +/- 5%. Normal left ventricular systolic function. Increased left atrial pressure (Grade II diastolic dysfunction). Status post TAVR with normal valve function. Peak P mmHg; Mean P mmHg. Impression and Plan Pulmonary Acute hypoxic respiratory failure: Overall is better initially improved ---extubated ----> 12/31 then required NIPPV , poor cough, reintubated 01/01 secondary to PEA arrest Volume overload vs. TRALI due to multiple blood transfusion bilateral atelectasis and effusions , right more than left -eval need a right thoracentesis acute pulm edema improved Klebsiella pneumonia, especially in the right lower lung improved. serratia has resulted as well Patient received more than 20 L including crystalloid, colloid blood products Intubated during CODE BLUE on 12/27 PFTs with normal spirometry in November 2020 Never a smoker Bronchoscopy 01/04: mucus plugging in RLL Thoracentesis 01/05: 900 ml, cultures pending Extubated on 01/05/21. 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 Now able to come off. Will use BIPAP PRN for increased WOB and HS Supplemental O2 to maintain O2 saturations 92-96% Duonebs Q6H Mucinex 200mg Q6H Encourage IS and FVD Cardiology following -Stop Amio secondary to prolonged QTc, discussed with CTS and cardiology Monitor need for continued diuresis Hemodynamics: Stable, off pressors and now with HTN Lisinopril 20mg BID and metoprolol 25mg BID, increasing today and will add hydralzine CTS following Neurology following Antibiotics: Zosyn for total of 8 days, Klebsiella PNA, stopped Zosyn and switched to Cefepime TF per dietary, speech following Prophylaxis: Protonix, SCDs -Anticoagulation per CTS Bowel regimen: Docusate, Senna, Miralax CXR and labs in AM FULL CODE Prognosis - Guarded. I have personally evaluated the patient; history and review of systems, physical examination, laboratory studies and radiology data. I have actively directed the medical care, formulated diagnosis and plan and discussed it with our team. Patient requires a high complexity of decision making for assessment. Discussed with SHYAM ZAVALA. documented in this encounter Plan of Treatment Not on file documented as of this encounter Visit Diagnoses Not on filedocumented in this encounter
--- OUTSIDE RECORDS SUMMARY | 2025-01-05 12:54 | XMS_ITS | Encounter Summary ---
Author Organization [facility] Address [address] [place] [address] Care Team Providers Care Professor Of Music Name Role Phone Unavailable Primary Care Provider Unavailabl e Encounter Details Date Type Department Care Team (Late st Contact Info) Description 01/02/2021 Transcribed Document [facility] Pulm & Critical Care Medicine [address] [place] [address] [address] [place] [address] Erick Navarro MD [address] [facility] [address] [place] [address] Social History Tobacco Use Types Packs/Day Years Used Date Smoking Tobacco: Never Assessed Sex and Gender Information Value Date Recorded Sex Assigned at Not on file Legal Sex Male 1:13 PM CDT Gender Identity Not on file Sexual Orientation Not on file documented as of this encounter Miscellaneous Notes * Cerner Conversion Note - Erick Navarro MD - 01/02/2021 6:47 PM EDT Patient: JOSE ADORNO Age: 80 years Sex: Male : 1940 Associated Diagnoses: None Author: ERICK NAVARRO MD Referring physician: Dr. Gomez Reason for [...] WBC 13.1, low grade temp 101.1 temp. 67: Remains intubated without sedated on PS trial. [...] trial x 2 hours, he is on ICU day: 7 Vent day: 5, extubated 12/31 TLDL 12/27 Review of Systems Unable to obtain: Follows commands denies abdominal pain denies chest pain. Health Status Allergies: Allergic Reactions (Selected) No Known Allergies, No qualifying data available Current medications: (Selected) Inpatient Medications Ordered Ambien: 5 mg, Oral, At Bedtime, PRN: Sleep Ancef: 2 Gram, 50 mL, 100 mL/Hr, IV Piggyback, 1-Time Dextrose: 25 Gram, IV Push, 1-Time, PRN: Hypoglycemia Dextrose: 25 Gram, IV Push, 1-Time, PRN: Hypoglycemia Dulcolax Laxative: 10 mg, Rectal, Daily, PRN: Constipation DuoNeb 0.5 mg-2.5 mg/3 mL inhalation solution: 3 mL, Nebulized Inhalation, RT_Q4H, PRN: Shortness of Breath Milk of Magnesia 8% oral suspension: 30 mL, Oral, Daily, PRN: Constipation NORepinephrine injection 4 mg + NaCl 0.9% for drip 250 mL: Titrate, IntraVENous Nitrostat: 0.4 mg, SubLINgual, Q5Min, PRN: Chest Pain Normal Saline Flush: 10 mL, IV Push, Q12H Normal Saline Flush: 10 mL, IV Push, See Comment, PRN: IV Use Norvasc: 10 mg, Oral, Daily Protonix: 40 mg, IV Push, Daily Tylenol: 650 mg, Oral, Q4H, PRN: Temperature Zofran: 4 mg, IV Push, Q4H, PRN: Nausea Zosyn + Sodium Chloride 0.9% intravenous solution 100 mL: 3.375 Gram, 33.33 mL/Hr, IV Piggyback, Q6H acetaminophen-HYDROcodone 325 mg-5 mg oral tablet: 2 [...] lactobacillus acidophilus: 1 Cap, Oral, BID lisinopril: 10 mg, Oral, BID metoprolol tartrate: 12.5 mg, Oral, BID morphine: 1 mg, IV Push, Q3H, PRN: [...] Oral, BID, 60 Tab, 0 Refill(s), Medications (35) Active Scheduled: (14) #NaCl 0.9% [...] 100 mL 3.375 Gram, IV Piggyback, Q6H senna 8.8 mg/5 mL liq 15 mL [...] 1 Tab, Oral, At Bedtime Problem list: Medical Aortic valve stenosis / SNOMED CT 685003937 / Confirmed At risk for sleep apnea / IMO [id number] / Confirmed Colorectal surgery / SNOMED CT 4503495284 / Confirmed HTN - Hypertension / SNOMED CT 7757779457 / Confirmed, Active Problems (13) Aortic stenosis, severe Aortic [...] 20:39) 77 (JAN 01 20:39) Mon HR 69 (JAN 02 17:00) 61 (JAN 02 04:00) 77 (JAN 01 20:30) Resp Rate 16 (JAN 02 17:00) L 1 (JAN 02 04:30) H 49 (JAN 02 14:00) SBP H 145 (JAN 02 17:00) L 88 (JAN 02 02:00) H 145 (JAN 01 20:30) DBP 73 (JAN 02 17:00) L 51 (JAN 01 19:00) 73 (JAN 02 17:00) MAP 101 (JAN 02 17:00) 65 (JAN 01 19:00) 101 (JAN 02 17:00) SpO2 96 (JAN 02 17:00) 95 (JAN 01 18:00) 100 (JAN 01 21:17) Intake & Output Totals Last 24 Hours (7a-7a) Intake (65 Events) Continuous Infusions (344.37 mL) Medications (575.99 mL) Other Intake (400 mL) Output (13 Events) Chest Tube Output: (260 mL) Spence Catheter (1070 mL) Input Total: 1320.36 mL Output Total: 1330 mL Balance: -9.64 mL General: No acute distress, Intubated and sedated. Eye: Pupils are equal, round and reactive to light, Extraocular movements are intact, Normal conjunctiva. HENT: Normocephalic, Oral ET tube. Mouth: Oral mucosa ( Dry ). Neck: Supple, No lymphadenopathy. Respiratory: Breath sounds are equal, Coarse breath sounds bilaterally with diminished breath sounds in bilateral bases.. Support: Chest tube ( X2 ). Cardiovascular: Normal rate, Regular rhythm, No edema. Gastrointestinal: Soft, Non-distended. Bowel sounds: All four quadrants, Diminished. Support: Gastric tube ( Nasal ). Genitourinary: Support: Urinary catheter ( Indwelling ). Musculoskeletal: No swelling, No deformity. Integumentary: Warm, Dry. Integumentary exam: Pale. Neurologic: Sedated with fentanyl and Precedex. Alert and follows commands. Moved both feet and gripped with both hands. . Psychiatric: Unable to assess. Review / Management Results review: Labs (Last four charted values) WBC 9.0 (DEC 09) H 11.7 (DEC 08) H 13.4 (DEC 07) H 13.1 (DEC 06) HB L 7.7 (DEC 09) L 8.7 (DEC 08) L 8.8 (DEC 07) L 8.4 (DEC 07) HCT L 24.1 (CESAR 09) L 26.5 (CESAR 08) L 26.2 (DEC 07) L 25.8 (DEC 07) Plt 163 (DEC 09) L 146 (DEC 08) L 108 (DEC 07) L 60 (DEC 06) Na 143 (DEC 09) 143 (DEC 08) 142 (DEC 07) 141 (DEC 07) K 3.7 (CESAR 09) 3.6 (CESAR 08) L 3.3 (CESAR 07) 3.8 (DEC 07) Cl 111 (DEC 09) 108 (CESAR 08) 107 (DEC 07) 108 (DEC 07) CO2 31 (CESAR 09) 28 (DEC 08) 27 (DEC 07) 28 (DEC 07) BUN H 39 (DEC 09) H 26 (CESAR 08) H 25 (DEC 07) H 28 (DEC 07) Cr 0.80 (CESAR 09) 0.70 (DEC 08) 0.80 (DEC 07) 0.70 (DEC 07) Glu R H 129 (CESAR 09) 80 (CESAR 08) 86 (CESAR 07) 99 (CESAR 07) Ca L 7.8 (CESAR 09) L 8.3 (CESAR 08) L 8.0 (CESAR 07) L 8.3 (CESAR 07) Lactic 1.2 (CESAR 07) 1.4 (CESAR 06) 1.4 (CESAR 06) 1.7 (CESAR 06) PT 11.4 (CESAR 04) H 17.4 (CESAR 03) H 14.3 (CESAR 03) H 18.7 (CESAR 03) INR 1.1 (CESAR 04) H 1.7 (CESAR 03) H 1.4 (CESAR 03) H 1.8 (CESAR 03) PTT 27.8 (CESAR 05) H 62.4 (CESAR 03) H 37.3 (CESAR 03) H 55.9 (CESAR 03) AST 32 (CESAR 09) H 50 (CESAR 08) H 78 (CESAR 06) H 125 (CESAR 05) ALT 28 (CESAR 09) 33 (CESAR 08) 35 (CESAR 06) 58 (CESAR 05) ALK P 65 (CESAR 09) 71 (CESAR 08) 64 (CESAR 06) 55 (CESAR 05) T Bili H 1.7 (CESAR 09) H 2.3 (CESAR 08) H 2.2 (CESAR 06) H 1.3 (CESAR 05) PTN L 5.1 (CESAR 09) L 5.8 (CESAR 08) L 5.2 (CESAR 06) L 4.6 (CESAR 05) ALB L 2.0 (CESAR 09) L 2.5 (CESAR 08) L 2.4 (CESAR 06) L 2.4 (CESAR 05) Troponin <0.015 (DEC 01) . Blood Gases (Current Encounter/Past 24 Hours) pH Art 7.45 01/02/2021 04:50 pCO2 Art 39.5 01/02/2021 04:50 pO2 Art 116.0 HI 01/02/2021 07:47 HCO3 Art 27.9 HI 01/02/2021 07:48 BE Art 3.8 HI 01/02/2021 07:48 sO2 Art 99.1 01/02/2021 04:50 tHb Art 8.3 LOW 01/02/2021 07:48 FHHb <2.4 NA 01/02/2021 04:50 ctO2 11.6 NA 01/02/2021 04:50 FIO2 Art 50 NA 01/02/2021 04:50 Delivery Device Type Art Ventilator NA 01/02/2021 04:50 Temperature, F Art 98.6 NA 01/02/2021 04:50 Art Blood Gas (ABG) Site Left Radial NA 01/02/2021 04:50 Acceptable Grey's Test Art Acceptable NA 01/02/2021 04:50 Ventilator Mode Art AC NA 01/02/2021 04:50 Tidal Volume Set Art 440.0 NA 01/02/2021 04:50 Set Rate Art 14.0 NA 01/02/2021 04:50 Respiratory Rate Art 14.0 NA 01/02/2021 04:50 CPAP/PEEP Art 8.0 NA 01/02/2021 04:50 ABG Num of Draw Attempts 1 NA 01/02/2021 04:50 PaO2/FiO2 calculated 232 NA 01/02/2021 04:50 JAN 02 04:13 143 111 H 39 / H 129 3.7 31 0.80 \ JAN 02 04:13 \ L 7.7 / 9.0 163 / L 24.1 \ Blood Gases (Current Encounter/Past 24 Hours) pH Art 7.45 01/02/2021 04:50 pCO2 Art 39.5 01/02/2021 04:50 pO2 Art 116.0 HI 01/02/2021 07:47 HCO3 Art 27.9 HI 01/02/2021 07:48 BE Art 3.8 HI 01/02/2021 07:48 sO2 Art 99.1 01/02/2021 04:50 tHb Art 8.3 LOW 01/02/2021 07:48 FHHb <2.4 NA 01/02/2021 04:50 ctO2 11.6 NA 01/02/2021 04:50 FIO2 Art 50 NA 01/02/2021 04:50 Delivery Device Type Art Ventilator NA 01/02/2021 04:50 Temperature, F Art 98.6 NA 01/02/2021 04:50 Art Blood Gas (ABG) Site Left Radial NA 01/02/2021 04:50 Acceptable Grey's Test Art Acceptable NA 01/02/2021 04:50 Ventilator Mode Art AC NA 01/02/2021 04:50 Tidal Volume Set Art 440.0 NA 01/02/2021 04:50 Set Rate Art 14.0 NA 01/02/2021 04:50 Respiratory Rate Art 14.0 NA 01/02/2021 04:50 CPAP/PEEP Art 8.0 NA 01/02/2021 04:50 ABG Num of Draw Attempts 1 NA 01/02/2021 04:50 PaO2/FiO2 calculated 232 NA 01/02/2021 04:50 Radiology Results (Last 48 hours) [id number] -- 12/27/2020 06:39 CR Chest 1 Vw Portable (01/01/2021 04:15) [...] by [place] PA-C, R.T. (N), Kieran Lerma.I have personally viewed, interpreted and dictated the [...] and dictated by Dr. Brayan Pratt.Transcribed by HERBERTH Baum have personally viewed, interpreted and dictated the examination. Ihave read and agree with the above final transcribed report. MRI Brain WO (01/02/2021 13:46) Result: MRI HEAD WITHOUT CONTRASTHISTORY: Altered mental statusCOMPARISON: None.FINDINGS: Multiplanar MR imaging of the head was performed withoutcontrast. There is generalized age appropriate atrophy. Multiple fociof increased T2 signal are seen in the cerebral white matter consistentwith mild chronic ischemic/gliotic changes. There are numerous areas ofabnormal restricted diffusion in the bilateral cerebral hemispheres andcerebellar hemispheres consistent with multiple acute infarcts. Thelargest area measures 42 mm in the left posterior frontal lobe. Theventricles are within normal limits with respect to size. There is noevidence of shift of the midline structures. No abnormal extra-axialfluid collection is seen. Normal major vessel vascular flow voids areidentified. There is opacification in multiple bilateral mastoid aircells consistent with bilateral mastoiditis.IMPRESSION: Multiple acute infarcts.Bilateral mastoiditis.Mild chronic ischemic/gliotic changes.Findings were discussed with the patient's nurse, Christiano, at the timeof dictation.Images reviewed, interpreted, and dictated by Dr. Christiano Gurrola.Transcribed by Mynor Moran(R).I have personally viewed, interpreted and dictated the examination. Hammad read and agree with the above final transcribed report. MRI of the brain was reported to have multiple acute infarcts bilateral mastoiditis. CR of the chest revealed that ET tube never replaced, no pneumothorax, bibasilar atelectasis with bilateral pleural effusions 12/14/2020 PFTS SPIROMETRY: 1. FVC 3.77 L, [...] function. Peak P mmHg; Mean P mmHg. Microbiology respiratory culture is: Gram-negative ellen Klebsiella Blood culture is pending Antibiotic Zosyn started 12/31 stopped 01/05 Impression and Plan Pulm and CCM Attending Note: I have performed personally face to face diagnostic evaluation of this patient, labs and radiology data were reviewed. Patient condition was reviewed in details during multidisciplinary Intensive care rounds with team, including critical care team, CCRN, RT., Case Resolution Specialist , case management and clinical pharmacist. I formulated diagnoses/impression and plan. . I also discussed my impression and plan for the day with patient???s family present at bed side. Patient requires a high complexity of decision making for assessment. Overall my opinion and recommendations are: Patient is in critical condition due to acute hypoxemic respiratory failure status post PEA arrest.. Patient had pericardial effusion and cardiogenic shock. Patient previously had severe aortic stenosis status post TAVR. And he had also new onset A. fib that was resolved was on amiodarone drip that was stopped, as per nursing and by my exam patient has right lower extremity weakness and able to wiggle his toes and he has right upper extremity weakness/flaccid.... At this time will monitor and reevaluate discussed with cardiology Patient was extubated on 12/31, however patient had failed with increased requirement of oxygen weak cough unable to clear his secretion NTS was done, placed on the BiPAP then next day in the morning patient was reintubated 01/01 Today patient on Levophed, currently awake, he tolerated weaning trial and he is more responsive I explained to his his condition, I explained that we are going to train him again tomorrow and see his readiness to be extubated and will proceed with more diuresis if we can, I even might proceed with a bronchoscopy and see if we can give him the benefit of the doubt and reextubate however if he fails again then patients need to have a trach Pulmonary Acute hypoxic respiratory failure: initially improved ---extubated ----> 12/31 then required NIPPV , poor cough, reintubated 01/01 secondary to PEA arrest Volume overload vs. TRALI due to multiple blood transfusion bilateral atelectasis and effusions acute pulm edema improved Klebsiella pneumonia, especially in the right lower lung Patient received more than 20 L including [...] onset A fib; now sinus rhythm - Amio stopped secondary to QTc Hx of diastolic heart failure History of hypertension Prolonged QTc Heme Acute blood loss anemia Left ventricular tear complicated by pericardial tamponade and hemopericardium Thrombocytopenia - improving, s/p transfusion on 12/30 Leukocytosis - improving Renal Metabolic acidosis due to lactic acid ; improved Electrolyte disturbances Hypernatremia - resolved ID Leukocytosis - improving COVID-19 negative Respiratory culture: GNR Endocrine Glycemic control Neuro Sedated with Precedex and fentanyl goal rass-1 , 0 acute encephalopathy multipleinfarcts : hypotension and s/p TAVR physical deconditioning right upper ext flaccid and right lower exts weakness ; ( improved RLE) MRI brain: multiple bilateral acute infarcts Plan: Vent bundle Daily SAT/SBT for up to 2hrs TID assess readniss to extubate in am : ( secretiions should be minimal , RSBI: < 80, and strength and ability to clear secretions and cough) if good then will do quick FOB therapeutic and then extubate if he fails then trach and peg I explain to pt Duonebs prn Lasix 20mg x1 Albumin 12.5g x1 to be given with Lasix Sedation: Precedex, Fentanyl for goal RASS -1 to 0 , wean for SBT Neuro following appreciate Dr. Thorne's input MRI brain today : Reviewed Hemodynamics: Cardene off, now on Levophed, maintain MAP >65 Stop the pressures, lisinopril, Norvasc CTS following -CT management Cardiology following -Stop Amio secondary to prolonged QTc, discussed with CTS and cardiology Pneumonia culture positive for GNR Klebsiella currently Zosyn increase to 8 days total TF per dietary, Corpak in place Prophylaxis: Protonix, SCDs -Anticoagulation per CTS -Rediscussed with cardiothoracic surgery for initiation of proph anticoagulation hgb is border line.. Bowel regimen: docusate and senna BID CXR and labs in AM Full code Prognosis is guarded to poor Disposition intensive care unit I discussed with his thoroughly ( was not aware he had cardiac arrest and I explained to her retrospectively ) I discussed with DR cydney Allen cct 85 mins documented in this encounter Plan of Treatment Not on file documented as of this encounter Visit Diagnoses Not on filedocumented in this encounter
--- OUTSIDE RECORDS SUMMARY | 2025-01-05 12:54 | XMS_ITS | Encounter Summary ---
Author Organization [facility] Address [address] [place] [id number] Care Team Providers Care Purchasing/Receiving Name Role Phone Unavailable Primary Care Provider Unavailabl e Encounter Details Date Type Department Care Team (Late st Contact Info) Description 12/27/2020 Transcribed Document [facility] [place] [address] [place] [address] ProviderMacrina MD [address] [place] [address] Social History Tobacco Use Types Packs/Day Years Used Date Smoking Tobacco: Never Assessed Sex and Gender Information Value Date Recorded Sex Assigned at Not on file Legal Sex Male 1:13 PM CDT Gender Identity Not on file Sexual Orientation Not on file documented as of this encounter Miscellaneous Notes * Cerner Conversion Note - Macrina ProviderMD - 12/27/2020 6:33 PM CDT Pain Assessment Entered On: 01/10/2021 22:43 EDT Performed On: 01/10/2021 22:41 EDT by Jaja Jernigan Non Emp RN Intervention Information: oxyCODONE Performed by Jaja Jernigan Non Emp RN on 01/10/2021 21:41:00 EDT oxyCODONE,5mg Oral,Pain (Moderate 4-6) Pain Assessment Pain Assessment : Follow-up assessment Pain Scale Goal : 3 Pain Scale Used : 0-10 Scale Jaja Jernigan Non Emp RN - 01/10/2021 22:42 EDT Pain Scale Intensity : 0 Jaja Jernigan Non Emp RN - 01/10/2021 22:42 EDT Image 4 - Images currently included in the form version of this document have not been included in the text rendition version of the form. documented in this encounter Plan of Treatment Not on file documented as of this encounter Visit Diagnoses Not on filedocumented in this encounter
--- OUTSIDE RECORDS SUMMARY | 2025-01-05 12:54 | XMS_ITS | Encounter Summary ---
Author Organization [facility] Address [address] [place] [address] Care Team Providers Care Video Conference Specialist Name Role Phone Unavailable Primary Care Provider Unavailabl e Encounter Details Date Type Department Care Team (Late st Contact Info) Description 01/07/2021 Transcribed Document [facility] [place] Medicine [address] [place] [address] ProviderMacrina MD [address] [place], [place] [address] Social History Tobacco Use Types Packs/Day Years Used Date Smoking Tobacco: Never Assessed Sex and Gender Information Value Date Recorded Sex Assigned at Not on file Legal Sex Male 1:13 PM CDT Gender Identity Not on file Sexual Orientation Not on file documented as of this encounter Miscellaneous Notes * Cerner Conversion Note - Historical ProviderMD - 01/07/2021 5:00 PM CDT Chart Check - Review Order Profile Entered On: 01/07/2021 18:06 EDT Performed On: 01/07/2021 17:00 EDT by Shayy Bowie RN Chart Check Powerplans Initiated/Discontinued as Appropriate : Yes All Active Orders Reviewed : Yes Shayy Bowie RN - 01/07/2021 18:06 EDT documented in this encounter Plan of Treatment Not on file documented as of this encounter Visit Diagnoses Not on filedocumented in this encounter
--- OUTSIDE RECORDS SUMMARY | 2025-01-05 12:55 | XMS_ITS | Encounter Summary ---
Author Organization [facility] Address [address] [place] [address] Care Team Providers Care Electric Meter Repairer Name Role Phone Unavailable Primary Care Provider Unavailabl e Encounter Details Date Type Department Care Team (Late st Contact Info) Description 01/18/2021 Transcribed Document [facility] [place] [address] [place] [address] ProviderMacrina MD [address] [place] [address] Social History Tobacco Use Types Packs/Day Years Used Date Smoking Tobacco: Never Assessed Sex and Gender Information Value Date Recorded Sex Assigned at Not on file Legal Sex Male 1:13 PM CDT Gender Identity Not on file Sexual Orientation Not on file documented as of this encounter Miscellaneous Notes * Cerner Conversion Note - Macrina ProviderMD - 01/18/2021 10:52 AM CDT Meds to Bed Enrollment Entered On: 01/18/2021 10:52 EDT Performed On: 01/18/2021 10:52 EDT by Jordan Michelle CANDY BAR ATTENDANT LEAD Meds to Bed Enrollment Patient Enrollment Decision: : No/do not enroll in meds to bed program Reason for Declining Meds to Bed Program: : Discharge to facility Jordan Michelle CANDY BAR ATTENDANT LEAD - 01/18/2021 10:52 EDT documented in this encounter Plan of Treatment Not on file documented as of this encounter Visit Diagnoses Not on filedocumented in this encounter
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
--- OUTSIDE RECORDS SUMMARY | 2025-01-05 12:55 | XMS_ITS | Encounter Summary ---
Author Organization [facility] Address [address] [place] [address] Care Team Providers Care Freight Handler Name Role Phone Unavailable Primary Care Provider Unavailabl e Encounter Details Date Type Department Care Team (Late st Contact Info) Description 12/30/2020 Transcribed Document [facility] [place] [facility] [address] [place] [address] ProviderMacrina MD [address] [place] [address] Social History Tobacco Use Types Packs/Day Years Used Date Smoking Tobacco: Never Assessed Sex and Gender Information Value Date Recorded Sex Assigned at Not on file Legal Sex Male 1:13 PM CDT Gender Identity Not on file Sexual Orientation Not on file documented as of this encounter Miscellaneous Notes * Cerner Conversion Note - Macrina Cordova MD - 12/30/2020 9:03 AM CDT Patient: JOSE ADORNO Age: 80 years Sex: Male : 1940 Associated Diagnoses: None Author: EMEKA MADERA MD-CAT Basic Information POD: 3 Present at bedside: Medical personnel. Health Status Allergies: Allergic Reactions (All) No Known Allergies Physical Examination Intake and Output I/O: 1667 Urine Output: 605 ml / 12 hrs CTs: 250 ml / 12 hrs, No Drips VS/Measurements Vitals Signs (last 24 hrs) Last Charted Minimum Maximum Apical HR H 135 (DEC 29 20:06) H 135 (DEC 29 20:06) H 135 (DEC 29 20:06) Mon HR 93 (DEC 30 08:40) 68 (DEC 30 02:00) 143 (DEC 29 19:00) Resp Rate H 26 (DEC 30 08:40) L 10 (DEC 29 23:00) H 30 (DEC 30 04:00) SBP 124 (DEC 30 06:00) 110 (DEC 30 02:00) H 183 (DEC 29 12:00) DBP 64 (DEC 30 06:00) L 56 (DEC 29 11:00) H 92 (DEC 29 12:00) MAP 87 (DEC 30:00) 66 (DEC 29 20:00) 325 (DEC 30 05:00) SpO2 96 (DEC 30 08:40) L 89 (DEC 29 11:05) 96 (DEC 29 22:00) General: No acute distress. Neck: Supple, No jugular venous distention. Respiratory: Lungs are clear to auscultation. Cardiovascular: Normal rate, Regular rhythm. Gastrointestinal: Soft, Non-tender. Musculoskeletal: Lower extremity exam: warm.. Integumentary: Warm, Dry, Sternal Wound: Clean/Dry/intact. Review / Management Results review: DEC 30 06:47 142 110 H 25 / H 160 L 3.3 27 0.70 \ DEC 30 06:47 \ L 8.2 / H 13.1 L 60 / L 24.1 \. Impression and Plan S/P TAVR S/P Repair of LV tear Plan: Off drips. CT head negative U.O good. CXR good. Lactic acid improved. Thrombocytopenia. Transfuse 6 pk of Plts continue support. documented in this encounter Plan of Treatment Not on file documented as of this encounter Visit Diagnoses Not on filedocumented in this encounter
--- OUTSIDE RECORDS SUMMARY | 2025-01-05 12:55 | XMS_ITS | Encounter Summary ---
Author Organization [facility] [facility] Address [address] [place] [address] Care Team Providers Care Press Set Up Person Name Role Phone Unavailable Primary Care Provider Unavailabl e Encounter Details Date Type Department Care Team (Late st Contact Info) Description 11/15/2019 Transcribed Document [facility] [place] [address] [place] [address] ProviderMacrina MD [address] [place] [address] Social History Tobacco Use Types Packs/Day Years Used Date Smoking Tobacco: Never Assessed Sex and Gender Information Value Date Recorded Sex Assigned at Not on file Legal Sex Male 1:13 PM CDT Gender Identity Not on file Sexual Orientation Not on file documented as of this encounter Miscellaneous Notes * Cerner Conversion Note - Historical ProviderMD - 11/15/2019 1:50 PM CDT Nursing Discharge Summary Entered On: 11/15/2019 13:50 EDT Performed On: 11/15/2019 13:50 EDT by JASON TAVAREZ RN Discharge Documentation Discharge Date/Time : 11/15/2019 14:20 EDT JASON TAVAREZ RN - 11/15/2019 14:19 EDT Patient Disposition, General : Discharge Discharge To : Home with ambulatory/outpatient follow-up Mode Of Departure, General Discharge : Private vehicle Accompanied By, Discharge : Spouse IV Discontinued : Yes Personal Belongings With Patient : Yes Discharge Instructions Reviewed With, Opportunity For Questions Given : Patient, Spouse Patient Education Completed : Yes Teaching Method : Explanation, Printed materials Teaching Evaluation : Returns demonstration, Verbalizes understanding JASON TAVAREZ RN - 11/15/2019 13:50 EDT Electronically signed by [facility] Conversion Community Organization Worker Cerner at 11/10/2022 9:13 AM CDT documented in this encounter Plan of Treatment Not on file documented as of this encounter Visit Diagnoses Not on filedocumented in this encounter
--- OUTSIDE RECORDS SUMMARY | 2025-01-05 12:55 | XMS_ITS | Encounter Summary ---
Author Organization [facility] Address [address] [place] [address] Care Team Providers Care Green Marketer Name Role Phone Robert Batista MD Primary Care Provider [phone] Encounter Details Date Type Department Care Team (Latest Contact Info) Description 11/07/2024 Travel Social History Tobacco Use Types Packs/Day Years [...] any time in the past 12 m [facility], were you homeless or living in a long-term (including now)? No 08/19/2024 CAGE ASSESSMENT Answer [...] drink first t ember in the morning (EYE-PROMOTIONAL ADVERTISING ASSISTANT) to steady your nerves or to get [...] things Not at all 11/07/2024 11:16 AM EDT Tracey Quintanilla Feeling down, depressed, or hopeless Not at [...] Author No Risk Indicated 11/07/2024 11:16 AM Tracey Winslow * If you checked off any problems on this questionnaire so far, Question Answer Date of Assessment Author How difficult have these problems made it for you to do your work, take care of things at home, or get along with other people? Not difficult at all 11/07/2024 11:16 AM Tracey Winslow * Question Answer Date of Assessment Author 1. Wish to be (Past 1 Month) No 11:16 AM Tracey Winslow 2. Non-Specific Active Suici moisés Thoughts (Past 1 Month) No 11/07/2024 11:16 AM EDT Tracey Quintanilla 6. Suicidal Behavior (Lifetime) No 11:16 AM EDT Tracey Quintanilla documented as of this encounter Plan of Treatment Upcoming Encounters Date Type Department Care Team (Late st Contact Info) Description 02/06/2025 9:25 AM EDT Appointment [facility] [address] [place] [phone] 02/06/2025 10:45 AM EDT Office Visit [facility] [address] [place] [phone] Darell Turcios MD [address] [place] [address] 02/13/2025 12:50 PM EDT Consult [facility] [address] [place] [address] Tari Christie PA [address] [place] [address] documented as of this encounter Goals Goal Patient Goal Type Associated Problems Recent Progress Patient-Stated? Author OT Goal: Pt to be educated on HEP to improve AROM by 1 visit. Occupational Therapy No Ceci Jacobo, OT documented as of this encounter Visit Diagnoses Not on filedocumented in this encounter Additional Health Concerns Assessment Noted Time PHQ-9 Depression Total Score: 0 11/08/19 25 11:16 AM EDT A fall risk assessment has been complete d for the patient 11/07/2024 11:19 AM EDT A Body Mass Index follow-up plan has been documented for the patient 11/07/2024 12:14 PM EDT documented as of this encounter Care Teams Green Marketer Relationship Specialty Start Date End Date Robert Batista MD [address] [place] [address] [address] [place] [address] PCP - General 12/07/20 documented as of this encounter
--- OUTSIDE RECORDS SUMMARY | 2025-01-05 12:55 | XMS_ITS | Encounter Summary ---
Author Organization [facility] [facility] Address [address] [place] [address] Care Team Providers Care Bulker Name Role Phone Unavailable Primary Care Provider Unavailabl e Encounter Details Date Type Department Care Team (Late st Contact Info) Description 11/15/2019 Transcribed Document [facility] [place] Family Medicine [address] [place] [address] ProviderMacrina MD [address] [place] [address] Social History Tobacco Use Types Packs/Day Years Used Date Smoking Tobacco: Never Assessed Sex and Gender Information Value Date Recorded Sex Assigned at Not on file Legal Sex Male 1:13 PM CDT Gender Identity Not on file Sexual Orientation Not on file documented as of this encounter Miscellaneous Notes * Cerner Conversion Note - Macrina Cordova MD - 11/15/2019 1:51 PM CDT Patient Education Materials Follows: Angiogram, Care After This sheet gives you information about how to care for yourself after your procedure. Your health care provider may also give you more specific instructions. If you have problems or questions, contact your health care provider. What can I expect after the procedure? After the procedure, it is common to have bruising and tenderness at the catheter insertion area. Follow these instructions at home: Insertion site care ??? Follow instructions from your health care provider about how to take care of your insertion site. Make sure you: ? Wash your hands with soap and water before you change your bandage (dressing). If soap and water are not available, use hand fire engine pump operator. ? Change your dressing as told by your health care provider. ? Leave stitches (sutures), skin glue, or adhesive strips in place. These skin closures may need to stay in place for 2 weeks or longer. If adhesive strip edges start to loosen and curl up, you may trim the loose edges. Do not remove adhesive strips completely unless your health care provider tells you to do that. ??? Do not take baths, swim, or use a hot tub until your health care provider approves. ??? You may shower 24?48 hours after the procedure or as told by your health care provider. ? Gently wash the site with plain soap and water. ? Pat the area dry with a clean towel. ? Do not rub the site. This may cause bleeding. ??? Do not apply powder or lotion to the site. Keep the site clean and dry. ??? Check your insertion site every day for signs of infection. Check for: ? Redness, swelling, or pain. ? Fluid or blood. ? Warmth. ? Pus or a bad smell. Activity ??? Rest as told by your health care provider, usually for 1?2 days. ??? Do not lift anything that is heavier than 10 lbs. (4.5 kg) or as told by your health care provider. ??? Do not drive for 24 hours if you were given a medicine to help you relax (sedative). ??? Do not drive or use heavy machinery while taking prescription pain medicine. General instructions ??? Return to your normal activities as told by your health care provider, usually in about a week. Ask your health care provider what activities are safe for you. ??? If the catheter site starts bleeding, lie flat and put pressure on the site. If the bleeding does not stop, get help right away. This is a medical emergency. ??? Drink enough fluid to keep your urine clear or pale yellow. This helps flush the contrast dye from your body. ??? Take pdar-yjp-reqtbdi and prescription medicines only as told by your health care provider. ??? Keep all follow-up visits as told by your health care provider. This is important. Contact a health care provider if: ??? You have a fever or chills. ??? You have redness, swelling, or pain around your insertion site. ??? You have fluid or blood coming from your insertion site. ??? The insertion site feels warm to the touch. ??? You have pus or a bad smell coming from your insertion site. ??? You have bruising around the insertion site. ??? You notice blood collecting in the tissue around the catheter site (hematoma). The hematoma may be painful to the touch. Get help right away if: ??? You have severe pain at the catheter insertion area. ??? The catheter insertion area swells very fast. ??? The catheter insertion area is bleeding, and the bleeding does not stop when you hold steady pressure on the area. ??? The area near or just beyond the catheter insertion site becomes pale, cool, tingly, or numb. These symptoms may represent a serious problem that is an emergency. Do not wait to see if the symptoms will go away. Get medical help right away. Call your local emergency services (911 in the [place] Do not drive yourself to the hospital. Summary ??? After the procedure, it is common to have bruising and tenderness at the catheter insertion area. ??? After the procedure, it is important to rest and drink plenty of fluids. ??? Do not take baths, swim, or use a hot tub until your health care provider says it is okay to do so. You may shower 24?48 hours after the procedure or as told by your health care provider. ??? If the catheter site starts bleeding, lie flat and put pressure on the site. If the bleeding does not stop, get help right away. This is a medical emergency. This information is not intended to replace advice given to you by your health care provider. Make sure you discuss any questions you have with your health care provider. Document Released: 01/29/2006 Document Revised: 06/17/2017 Document Reviewed: 06/17/2017 [employer] Interactive Patient Education ? 2019 [employer] Valvuloplasty, Care After This sheet gives you information about how to care for yourself after your procedure. Your health care provider may also give you more specific instructions. If you have problems or questions, contact your health care provider. What can I expect after the procedure? After the procedure, it is common to have: ??? A tender lump and bruising in your groin. ??? Soreness. Follow these instructions at home: Incision care ??? Follow instructions from your health care provider about how to take care of your incision. Make sure you: ? Wash your hands with soap and water before you change your bandage (dressing). If soap and water are not available, use hand fire engine pump operator. ? Change your dressing as told by your health care provider. ? Leave stitches (sutures), skin glue, or adhesive strips in place. These skin closures may need to stay in place for 2 weeks or longer. If adhesive strip edges start to loosen and curl up, you may trim the loose edges. Do not remove adhesive strips completely unless your health care provider tells you to do that. ??? Check your incision area every day for signs of infection. Check for: ? More redness, swelling, or pain. ? More fluid or blood. ? Warmth. ? Pus or a bad smell. ??? Do not apply powder or lotion to the area. Driving ??? Do not drive until your health care provider approves. ??? Do not drive or use heavy machinery while taking prescription pain medicine. Activity ??? Return to your normal activities as told by your health care provider. Ask your health care provider what activities are safe for you. ??? Do not lift anything that is heavier than 10 lb (4.5 kg) until your health care provider says it is safe. Lifestyle ??? Limit alcohol intake to no more than 1 drink a day for non women and 2 drinks a day for men. One drink equals 12 oz of beer, 5 oz of wine, or 1? oz of hard liquor. ??? Do not use any products that contain nicotine or tobacco, such as cigarettes and e-cigarettes. If you need help quitting, ask your health care provider. General instructions ??? Take krxs-ceu-ixvzqxu and prescription medicines only as told by your health care provider. ??? Do not take baths, swim, or use a hot tub until your health care provider approves. ??? To prevent or treat constipation while you are taking prescription pain medicine, your health care provider may recommend that you: ? Drink enough fluid to keep your urine clear or pale yellow. ? Take ydit-hrn-ypjkdxz or prescription medicines. ? Eat foods that are high in fiber, such as fresh fruits and vegetables, whole grains, and beans. ? Limit foods that are high in fat and processed sugars, such as fried and sweet foods. ??? Follow instructions from your health care provider about eating or drinking restrictions. ??? Wear compression stockings as told by your health care provider. These stockings help to prevent blood clots and reduce swelling in your legs. ??? Keep all follow-up visits as told by your health care provider. This is important. Contact a health care provider if: ??? You have a fever or chills. ??? You have more redness, swelling, or pain around your incision. ??? You have more fluid or blood coming from your incision. ??? Your incision feels warm to the touch. ??? You have pus or a bad smell coming from your incision. ??? You have nausea or you feel dizzy. ??? You have swelling or pain in your leg. Get help right away if: ??? You develop bleeding from your incision that does not stop. ??? You have chest pain. ??? You have difficulty breathing. This information is not intended to replace advice given to you by your health care provider. Make sure you discuss any questions you have with your health care provider. Document Released: 11/27/2015 Document Revised: 06/09/2017 Document Reviewed: 06/09/2017 [employer] Interactive Patient Education ? 2019 [employer]. Moderate Conscious Sedation, Adult, Care After These instructions provide you with information about caring for yourself after your procedure. Your health care provider may also give you more specific instructions. Your treatment has been planned according to current medical practices, but problems sometimes occur. Call your health care provider if you have any problems or questions after your procedure. What can I expect after the procedure? After your procedure, it is common: ??? To feel sleepy for several hours. ??? To feel clumsy and have poor balance for several hours. ??? To have poor judgment for several hours. ??? To vomit if you eat too soon. Follow these instructions at home: For at least 24 hours after the procedure: ??? Do not: ? Participate in activities where you could fall or become injured. ? Drive. ? Use heavy machinery. ? Drink alcohol. ? Take sleeping pills or medicines that cause drowsiness. ? Make important decisions or sign legal documents. ? Take care of children on your own. ??? Rest. Eating and drinking ??? Follow the diet recommended by your health care provider. ??? If you vomit: ? Drink water, juice, or soup when you can drink without vomiting. ? Make sure you have little or no nausea before eating solid foods. General instructions ??? Have a responsible adult stay with you until you are awake and alert. ??? Take qabt-uyf-rncwkpy and prescription medicines only as told by your health care provider. ??? If you smoke, do not smoke without supervision. ??? Keep all follow-up visits as told by your health care provider. This is important. Contact a health care provider if: ??? You keep feeling nauseous or you keep vomiting. ??? You feel light-headed. ??? You develop a rash. ??? You have a fever. Get help right away if: ??? You have trouble breathing. This information is not intended to replace advice given to you by your health care provider. Make sure you discuss any questions you have with your health care provider. Document Released: 05/03/2014 Document Revised: 12/15/2016 Document Reviewed: 11/01/2016 [employer] Interactive Patient Education ? 2019 [employer]. Groin Site Care Refer to this sheet in the next few weeks. These instructions provide you with information on caring for yourself after your procedure. Your caregiver may also give you more specific instructions. Your treatment has been planned according to current medical practices, but problems sometimes occur. Call your caregiver if you have any problems or questions after your procedure. HOME CARE INSTRUCTIONS ? You may shower 24 hours after the procedure. Remove the bandage (dressing ) and gently wash the site with plain soap and water. Gently pat the site dry. ? Do not apply powder or lotion to the site. ? Do not sit in a bathtub, swimming pool, or whirlpool for 5 to 7 days. ? No bending, squatting, or lifting anything over 10 pounds (4.5 kg) as directed by your caregiver. ? Inspect the site at least twice daily. ? Do not drive home if you are discharged the same day of the procedure. Have someone else drive you. ? You may drive 24 hours after the procedure unless otherwise instructed by your caregiver. What to expect: ? Any bruising will usually fade within 1 to 2 weeks. ? Blood that collects in the tissue (hematoma ) may be painful to the touch. It should usually decrease in size and tenderness within 1 to 2 weeks. SEEK IMMEDIATE MEDICAL CARE IF: ? You have unusual pain at the groin site or down the affected leg. ? You have redness, warmth, swelling, or pain at the groin site. ? You have drainage (other than a small amount of blood on the dressing). ? You have chills. ? You have a fever or persistent symptoms for more than 72 hours. ? You have a fever and your symptoms suddenly get worse. ? Your leg becomes pale, cool, tingly, or numb. ? You have heavy bleeding from the site. Hold pressure on the site. Document Released: 08/15/2011 Document Revised: 10/04/2012 Document Reviewed: 08/15/2011 ExitCare? Patient Information ?2013 [employer]. documented in this encounter Plan of Treatment Not on file documented as of this encounter Visit Diagnoses Not on filedocumented in this encounter
--- OUTSIDE RECORDS SUMMARY | 2025-01-05 12:55 | XMS_ITS | Encounter Summary ---
Author Organization [employer] Address [address] [place] [address] Care Team Providers Care Manager Environmental Health And Safety Name Role Phone Unavailable Primary Care Provider Unavailabl e Encounter Details Date Type Department Care Team (Late st Contact Info) Description 12/30/2020 Transcribed Document [address] [id number] Abby Rodrigues MD [address] [place] [address] Social History Tobacco Use Types Packs/Day Years Used Date Smoking Tobacco: Never Assessed Sex and Gender Information Value Date Recorded Sex Assigned at Not on file Legal Sex Male 1:13 PM CDT Gender Identity Not on file Sexual Orientation Not on file documented as of this encounter Miscellaneous Notes * Cerner Conversion Note - Abby Rodrigues MD - 12/30/2020 11:56 AM EDT Patient: JOSE ADORNO Age: 80 years Sex: Male : 1940 Associated Diagnoses: None Author: ABBY RODRIGUES MD-CAR Basic Information PCP: Robert Batista MD Primary Ukrainian Folk Arts Instructor: Arthur Gomez MD Subjective on vent. moving extremities. CT of head neg yesterday. awake, follows commands. Health Status Current medications: (Selected) Inpatient Medications [...] IV Push, 1-Time, PRN: Other (See Comment) Milk of Magnesia 8% oral suspension: 30 [...] (See Comment) amLODIPine: 5 mg, Oral, Daily amiodarone injection 450 mg + Dextrose 5% in Water intravenous solution 250 mL: 17 mL/Hr, IntraVENous ascorbic acid: 500 mg, Oral, BID aspirin: [...] PriLOSEC 10 mg, Oral, BID , Medications (46) Active Scheduled: (14) #NaCl 0.9% [...] mg tab 1 Tab, Oral, BID Continuous: (12) amiodarone 450 mg + Dextrose 5% in Water 250 mL 250 mL, IntraVENous, 17 mL/Hr dexmedeTOMIDine 400 mcg + NaCl 0.9% TITRATE [...] TITRATE 100 mL 100 mL, IntraVENous PRN: (20) #NaCl 0.9% *FLUSH* inj 10 mL 10 [...] Push, Q6H morphine 2 mg/1 ml inj 1 mg [...] Total 7,235 ml VS/Measurements Vital Signs/Vital Measures 12/30/2020 10:32 EDT Respiratory Rate 9 Breaths/Min LOW Oxygen Saturation 96 % 12/30/2020 10:30 EDT Heart Rate, Apical 82 bpm 12/30/2020 8:40 EDT FiO2 75 % 12/30/2020 6:00 EDT Systolic Blood Pressure 124 mmHg Diastolic Blood Pressure 64 mmHg Mean Arterial Pressure (MAP)-BMDI 87 Systolic BP, Arterial Line 1 135 mmHg Diastolic BP, Arterial Line 1 54 mmHg LOW , Vitals Signs (last 24 hrs) Last Charted Minimum Maximum Apical HR 82 (DEC 30 10:30) 82 (DEC 30 10:30) H 135 (DEC 29 20:06) Mon HR 93 (DEC 30 08:40) 68 (DEC 30 02:00) 143 (DEC 29 19:00) Resp Rate L 9 (DEC 30 10:32) L 9 (DEC 30 10:32) H 30 (DEC 30 04:00) SBP 124 (DEC 30 06:00) 110 (DEC 30 02:00) H 183 (DEC 29 12:00) DBP 64 (DEC 30 06:00) L 56 (DEC 29 11:00) H 92 (DEC 29 12:00) MAP 87 (DEC 30 06:00) 66 (DEC 29 20:00) 325 (DEC 30 05:00) SpO2 96 (DEC 30 10:32) L 89 (DEC 29 11:05) 96 (DEC 29 22:00) General: Intubated/Sedated. Eye: Normal conjunctiva. HENT: Normocephalic. Respiratory: Symmetrical chest wall expansion. Breath sounds: Bilateral, Rhonchi present. Support: Ventilator. Cardiovascular: Normal rate, Regular rhythm, Good pulses equal in all extremities. Gastrointestinal: Soft, Non-distended, Normal bowel sounds. Genitourinary: indwelling rocha catheter. Musculoskeletal: No deformity. Integumentary: Warm, Dry, Incision site: C/D/I. Neurologic: Intubated/Sedated. Psychiatric: Intubated/Sedated. Results Review DEC 30 06:47 142 110 H 25 / H 160 L 3.3 27 0.70 \ DEC 30 06:47 \ L 8.2 / H 13.1 L 60 / L 24.1 \ Cardiac Markers (Current Encounter/Past 24 Hours) No Cardiac Marker Results Found (Past 24 Hours) Radiology Results (Last 48 hours) [id number] -- 12/27/2020 06:39 CR Chest 1 Vw Portable (12/29/2020 04:31) [...] transcribed report. CR Chest 1 Vw Portable (12/30/2020 04:29) Result: CHEST ONE VIEWHISTORY: Shortness of breath COMPARISON: 12/29/2020FINDINGS: Portable view of the chest demonstrates bilateral pulmonaryopacities compatible with moderate-sized pleural effusions withatelectasis, mildly improved. Vascular congestion has improved. Supportdevices are stable. There is no pneumothorax. The mediastinum isunremarkable.The heart size is normal. 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 Transcatheter aortic [...] s/p pericardiocentesis and surgical repain of LV Fromberg. PEA Arrest; CODE called 10 minutes to ROSC Mediastinal hemorrhage/Cardiac tamponade s/p emergent sternotomy; repair of left ventricular teat 12/27/2020 - Mechanical vent placed during surgery acute blood loss anemia s/p multiple blood products including 4 units of PRBCs, cryoprecipitate, platelets, and fresh frozen plasma Hypertension Nonischemic cardiomyopathy Neurologic changes awaiting CT PLAN; 12/30/2020 Hopefully will wean to extubate today. [...]
--- OUTSIDE RECORDS SUMMARY | 2025-01-05 12:55 | XMS_ITS | Encounter Summary ---
Author Organization [employer] Address [address] [place] [address] Care Team Providers Care Automotive Software Engineer Name Role Phone Unavailable Primary Care Provider Unavailabl e Encounter Details Date Type Department Care Team (Late st Contact Info) Description 09/19/2019 Transcribed Document [facility] [place] Family Medicine [address] [place] [address] ProviderMacrina MD [address] [place] [address] Social History Tobacco Use Types Packs/Day Years Used Date Smoking Tobacco: Never Assessed Sex and Gender Information Value Date Recorded Sex Assigned at Not on file Legal Sex Male 1:13 PM CDT Gender Identity Not on file Sexual Orientation Not on file documented as of this encounter Miscellaneous Notes * Cerner Conversion Note - Macrina ProviderMD - 09/19/2019 1:28 PM BIRD TRAPPER Pre Procedure Adult Entered On: 09/19/2019 13:29 EST Performed On: 09/19/2019 13:28 EST by CELESTINA ALVARADO RN Height and Weight, Clinical Dosing Height Source : Stated Height Entry Format : [place] Height, Feet : 5 ft(Converted to: 152 cm, 60 Inch) Height, Inches : 8 Inch(Converted to: 0 ft 8 Inch, 20.32 cm) Clinical Height : 172.72 cm Weight Source : Standing scale Weight Entry Format : [place] Clinical Dosing Weight : 62.27 kg Weight, Pounds : 137 lb Body Surface Area (BSA) : 1.74 m2 Body Mass Index : 20.9 kg/m2 Fertile Body Weight : 67 kg CELESTINA ALVARADO RN - 09/19/2019 13:28 EST Vital Measurements Temperature Source : Temporal artery scanning Temperature Mode : Fahrenheit Temperature, Fahrenheit : 97.5 Deg F Clinical Temperature, C : 36.4 Deg C Pulse Method : Non-Invasive BP Device Peripheral Pulse Rate : 61 bpm Respiratory Rate : 17 Breaths/Min Blood Pressure Location : Arm, left lower Blood Pressure Position : Sitting Systolic Blood Pressure : 132 mmHg Diastolic Blood Pressure : 66 mmHg Oxygen Saturation : 96 % Oxygen Therapy Mode : Room air CELESTINA ALVARADO RN - 09/19/2019 13:28 EST Electronically signed by [facility] Conversion [employer] Retailer Sales Consultant Cerner at 11/10/2022 9:26 AM CDT documented in this encounter Plan of Treatment Not on file documented as of this encounter Visit Diagnoses Not on filedocumented in this encounter
--- OUTSIDE RECORDS SUMMARY | 2025-01-05 12:55 | XMS_ITS | Encounter Summary ---
Author Organization [facility] Address [address] [place] [address] Care Team Providers Care Blasting Contract Miner Name Role Phone Unavailable Primary Care Provider Unavailabl e Encounter Details Date Type Department Care Team (Late st Contact Info) Description 12/30/2020 Transcribed Document [facility] [place] [facility] [address] [place] [address] ProviderMacrina MD [address] [place] [address] Social History Tobacco Use Types Packs/Day Years Used Date Smoking Tobacco: Never Assessed Sex and Gender Information Value Date Recorded Sex Assigned at Not on file Legal Sex Male 1:13 PM CDT Gender Identity Not on file Sexual Orientation Not on file documented as of this encounter Miscellaneous Notes * Cerner Conversion Note - Historical ProviderMD - 12/30/2020 5:00 PM CDT Chart Check - Review Order Profile Entered On: 12/30/2020 16:52 EDT Performed On: 12/30/2020 17:00 EDT by JOSEPH LEWIS RN Chart Check Powerplans Initiated/Discontinued as Appropriate : Yes All Active Orders Reviewed : Yes JOSEPH LEWIS RN - 12/30/2020 16:52 EDT documented in this encounter Plan of Treatment Not on file documented as of this encounter Visit Diagnoses Not on filedocumented in this encounter
--- OUTSIDE RECORDS SUMMARY | 2025-01-05 12:55 | XMS_ITS | Encounter Summary ---
Author Organization [facility] Address [address] [place] [address] Care Team Providers Care Satellite Communications Operator Name Role Phone Unavailable Primary Care Provider Unavailabl e Encounter Details Date Type Department Care Team (Late st Contact Info) Description 12/27/2020 Transcribed Document [facility] [place] Family Medicine [address] [place] [address] ProviderMacrina MD [address] [place] [address] Social History Tobacco Use Types Packs/Day Years Used Date Smoking Tobacco: Never Assessed Sex and Gender Information Value Date Recorded Sex Assigned at Not on file Legal Sex Male 1:13 PM CDT Gender Identity Not on file Sexual Orientation Not on file documented as of this encounter Miscellaneous Notes * Cerner Conversion Note - Historical ProviderMD - 12/27/2020 8:44 PM CDT Spiritual Care Assessment Entered On: 12/27/2020 20:45 EDT Performed On: 12/27/2020 20:44 EDT by LAVERN VALDIVIA Chaplain General Information Initial Visit : No Referred by : follow-up Ministry Provided to : Family/Significant other LAVERN VALDIVIA Chaplain - 12/27/2020 20:44 EDT Interventions Emotional Support : Family/Significant other supported, Feelings expressed, Hope strengths identified, Hope struggles identified Spiritual and Moravian : Beliefs/Values explored, Prayer shared, Spiritual/Moravian support provided LAVERN VALDIVIA Chaplain - 12/27/2020 20:44 EDT Electronically signed by [facility] Conversion Hydraulic Repairer Guanaco at 11/10/2022 9:19 AM CDT documented in this encounter Plan of Treatment Not on file documented as of this encounter Visit Diagnoses Not on filedocumented in this encounter
--- OUTSIDE RECORDS SUMMARY | 2025-01-05 12:55 | XMS_ITS | Encounter Summary ---
Author Organization [facility] Address [address] [place] [address] Care Team Providers Care Assistant Pastry Chef Name Role Phone Unavailable Primary Care Provider Unavailabl e Encounter Details Date Type Department Care Team (Late st Contact Info) Description 12/30/2020 Transcribed Document [facility] Pulm & Critical Care Medicine [address] [place] [address] [address] [place] [address] Kapil River MD [address] [facility] [address] [place] [address] Social History Tobacco Use Types Packs/Day Years Used Date Smoking Tobacco: Never Assessed Sex and Gender Information Value Date Recorded Sex Assigned at Not on file Legal Sex Male 1:13 PM CDT Gender Identity Not on file Sexual Orientation Not on file documented as of this encounter Miscellaneous Notes * Cerner Conversion Note - Kapil River MD - 12/30/2020 6:51 PM EDT Patient: JOSE ADORNO Age: 80 [...] WBC 13.1, low grade temp 101.1 temp. Review of Systems Unable to obtain Health Status Current medications: Medications (45) Active Scheduled: (14) #NaCl 0.9% *FLUSH* inj [...] TITRATE 100 mL 100 mL, IntraVENous PRN: (19) #NaCl 0.9% *FLUSH* [...] H 135 (DEC 29 20:06) Mon HR 85 (DEC 30 16:51) 68 (DEC 30 02:00) 143 (DEC 29 19:00) Resp Rate H 21 (DEC 30 16:51) L 4 (DEC 30 13:00) H 30 (DEC 30 04:00) SBP 137 (DEC 30 16:00) 110 (DEC 30 02:00) H 162 (DEC 30 00:00) DBP 62 (DEC 30 16:00) L 56 (DEC 30 01:00) 74 (DEC 30 00:00) MAP 93 (DEC 30 16:00) 66 (DEC 29 20:00) 325 (DEC 30 05:00) SpO2 95 (DEC 30 16:51) L 90 (DEC 30 03:00) 97 (DEC 30 13:00) Intake & Output Totals Last 24 Hours (7a-7a) Intake (33 Events) Continuous Infusions (1103.6543 mL) Medications (564.5 mL) Output (28 Events) Chest Tube Output: (570 mL) Spence Catheter (1435 mL) Input Total: 1668.1543 mL Output Total: 2005 mL Balance: -336.8457 mL General: Intubated on No sedation. RASS -0. Moving all extremities. Not following commands, does not track with eyes. . Eye: Pupils are equal, round and [...] Integumentary: Warm, Dry. Integumentary exam: Pale. Neurologic: Intubated on No sedation. RASS -0. Moving all extremities. Not following commands, does not track with eyes. . Psychiatric: Unable to assess. Review / Management Results review: Labs (Last four charted values) WBC H 13.1 (DEC 30) H 12.8 (DEC 30) H 10.8 (CESAR 05) 7.4 (CESAR 04) HB L 8.6 (CESAR 06) L 8.2 (CESAR 06) L 8.0 (CESAR 06) L 8.5 (CESAR 05) HCT L 26.0 (CESAR 06) L 24.1 (CESAR 06) L 24.4 (CESAR 06) L 25.7 (CESAR 05) Plt L 60 (CESAR 06) L 70 (CESAR 06) L 96 (CESAR 05) L 124 (CESAR 04) Na 142 (CESAR 06) 143 (CESAR 06) 145 (CESAR 05) H 149 (CESAR 04) K L 3.3 (CESAR 06) L 3.1 (CESAR 06) 3.8 (CESAR 05) 3.9 (CESAR 04) Cl 110 (CESAR 06) 109 (CESAR 06) H 114 (CESAR 05) H 117 (CESAR 04) CO2 27 (CESAR 06) 30 (CESAR 06) 29 (CESAR 05) 30 (CESAR 04) BUN H 25 (CESAR 06) H 24 (CESAR 06) 17 (CESAR 05) 17 (CESAR 04) Cr 0.70 (CESAR 06) 0.80 (CESAR 06) 1.00 (CESAR 05) 0.90 (CESAR 04) Glu R H 160 (CESAR 06) H 175 (CESAR 06) H 114 (CESAR 05) H 109 (CESAR 04) Ca L 7.9 (CESAR 06) L 7.7 (CESAR 06) L 8.1 (CESAR 05) L 8.1 (CESAR 04) Lactic 1.4 (CESAR 06) 1.7 (CESAR 06) C 3.0 (CESAR 05) C 2.6 (CESAR 05) PT 11.4 (CESAR 04) H 17.4 (CESAR 03) H 14.3 (CESAR 03) H 18.7 (CESAR 03) INR 1.1 (CESAR 04) H 1.7 (CESAR 03) H 1.4 (CESAR 03) H 1.8 (CESAR 03) PTT 27.8 (CESAR 05) H 62.4 (CESAR 03) H 37.3 (CESAR 03) H 55.9 (CESAR 03) AST H 78 (CESAR 06) H 125 (CESAR 05) H 141 (CESAR 04) H 179 (CESAR 03) ALT 35 (CESAR 06) 58 (CESAR 05) H 85 (CESAR 04) H 108 (CESAR 03) ALK P 64 (CESAR 06) 55 (CESAR 05) 53 (CESAR 04) 46 (CESAR 03) T Bili H 2.2 (DEC 30) H 1.3 (DEC 29) H 2.2 (DEC 28) H 1.5 (DEC 27) PTN L 5.2 (DEC 30) L 4.6 (DEC 29) L 4.8 (DEC 28) L 4.3 (DEC 27) ALB L 2.4 (DEC 30) L 2.4 (DEC 29) L 2.7 (DEC 28) L 2.6 (DEC 27) Troponin <0.015 (DEC 25) . Blood Gases (Current Encounter/Past 24 Hours) pH Art 7.52 NC 12/30/2020 08:28 pCO2 Art 33.0 LOW 12/30/2020 08:28 pO2 Art 57.7 LOW 12/30/2020 08:28 HCO3 Art 26.7 HI 12/30/2020 08:28 BE Art 3.8 NC 12/30/2020 08:28 sO2 Art 92.4 LOW 12/30/2020 08:28 tHb Art 9.5 LOW 12/30/2020 08:28 FHHb 7.5 NA 12/30/2020 04:00 ctO2 12.2 NA 12/30/2020 04:00 FIO2 Art 75 NA 12/30/2020 04:00 Delivery Device Type Art Ventilator NA 12/30/2020 04:00 Temperature, F Art 98.6 NA 12/30/2020 04:00 Art Blood Gas (ABG) Site Arterial Line NA 12/30/2020 04:00 Acceptable Grey's Test Art Non-Applicable NA 12/30/2020 04:00 Ventilator Mode Art AC NA 12/30/2020 04:00 Tidal Volume Set Art 440.0 NA 12/30/2020 04:00 Set Rate Art 14.0 NA 12/30/2020 04:00 Respiratory Rate Art 30.0 NA 12/30/2020 04:00 CPAP/PEEP Art 5.0 NA 12/30/2020 05:29 ABG Num of Draw Attempts 1 NA 12/30/2020 04:00 PaO2/FiO2 calculated 77 NA 12/30/2020 04:00 Radiology Results (Last 48 hours) [id number] -- 12/27/2020 06:39 CR Chest 1 Vw [...] by Dr. Alvin Portillo.Transcribed by Dov Colby PA-C.Nessa have personally viewed, interpreted and dictated the [...] by Dr. Alvin Portillo.Transcribed by Dov Colby PA-C.Nessa have personally viewed, interpreted and dictated the [...] Mild improvement of pleural effusions and atelectasis 12/14/2020 PFTS SPIROMETRY: 1. FVC 3.77 L, [...] Fentanyl/Propofol RASS -0-1 drip for goal RASS -1---ALL Sedation OFF 24 hours, consistent bilateral movement. Not tracking with eyes, has slight upward gaze and not following commands STAT CT head--NEG Consider Neuro Consult if no improvement by the AM Daily SAT/SBT trial--Unable to extubate due to Higher levels of O2 Requirements and Inconsistent Neuro status Hemodynamics: Levo for goal MAP >65mmHg. Avoid hypotension due to presence of left ventricular rupture repair--On Cardene Cardiology following -On Amio/Cardene Antibiotics: -Ancef per cardiology--completed Serial H and H Q6H -Received 1 unit PRBC yesterday Lactic acid monitor-- Hypernatremia; sodium at 142 today. --D5W off Give Lasix 20mg IV X 1 Replace Potassium Monitor H/H blood loss CTS following MT X 1, CT X 1;Monitor output Pepcid/SCD Critically ill patient requires frequent assessment and high-level critical care thinking Full code 78 minutes critical care time excluding procedures. Discussed with SILVER HOLLOWARE ASSEMBLER: RN and patient's at bedside. documented in this encounter Plan of Treatment Not on file documented as of this encounter Visit Diagnoses Not on filedocumented in this encounter
--- OUTSIDE RECORDS SUMMARY | 2025-01-05 12:55 | XMS_ITS | Encounter Summary ---
Author Organization [facility] [employer] In [employer] Address [address] [place] [address] Care Team Providers Care Produce Production Team Member Name Role Phone Unavailable Primary Care Provider Unavailabl e Encounter Details Date Type Department Care Team (Late st Contact Info) Description 12/27/2020 Transcribed Document [facility] Family Medicine [address] [place] [address] ProviderMacrina MD [address] [place] [address] Social History Tobacco Use Types Packs/Day Years Used Date Smoking Tobacco: Never Assessed Sex and Gender Information Value Date Recorded Sex Assigned at Not on file Legal Sex Male 1:13 PM CDT Gender Identity Not on file Sexual Orientation Not on file documented as of this encounter Miscellaneous Notes * Cerner Conversion Note - Historical ProviderMD - 12/27/2020 1:10 PM CDT Spiritual Care Assessment Entered On: 12/27/2020 13:52 EDT Performed On: 12/27/2020 13:10 EDT by BRISSA SULLIVAN General Information Initial Visit : No Referred by : Sander Machine follow-up Referral Reason Comment : Critical care follow up visit Ministry Provided to : Family/Significant other BRISSA SULLIVAN - 12/27/2020 13:50 EDT Spiritual Assessment Spiritual Assessment Comment/Summary Points : Follow up with in consult room. Consulted with RN and relayed info. about approx. time can visit. Spirital Assessment Comment/Summary Report : SPIRITUAL ASSESSMENT COMMENT/SUMMARY Spiritual Assessment Comment/Summary 12/27/20 11:45:00 Provided crisis support, prayer and hospitality to during and following code. Plan to follow for support. Signed By: BRISSA SULLIVAN Spiritual Assessment Comment/Summary 12/27/20 06:40:00 Provided pre-surgery visit and prayer with patient and . Signed By: BRISSA SULLIVAN SCOTT P - 12/27/2020 13:50 EDT Interventions Emotional Support : Empathic/Engaged listening, Family/Significant other supported, Feelings expressed, Information provided Spiritual and Spiritism : Spiritual/Spiritism support provided BRISSA SULLIVAN 12/27/2020 13:50 EDT documented in this encounter Plan of Treatment Not on file documented as of this encounter Visit Diagnoses Not on filedocumented in this encounter
--- OUTSIDE RECORDS SUMMARY | 2025-01-05 12:55 | XMS_ITS | Encounter Summary ---
Author Organization [facility] In iatives Address [address] [place] [address] Care Team Providers Care Escrow Processor Name Role Phone Unavailable Primary Care Provider Unavailabl e Encounter Details Date Type Department Care Team (Late st Contact Info) Description 12/27/2020 Transcribed Document [facility] Family Medicine [address] [place] [address] ProviderMacrina MD [address] [place] [address] Social History Tobacco Use Types Packs/Day Years Used Date Smoking Tobacco: Never Assessed Sex and Gender Information Value Date Recorded Sex Assigned at Not on file Legal Sex Male 1:13 PM CDT Gender Identity Not on file Sexual Orientation Not on file documented as of this encounter Miscellaneous Notes * Cerner Conversion Note - Historical ProviderMD - 12/27/2020 6:33 PM CDT Pain Assessment Entered On: 01/06/2021 1:29 EDT Performed On: 01/05/2021 21:55 EDT by Marley Huizar Non Emp RN Intervention Information: acetaminophen Performed by Marley Huizar Non Emp RN on 01/05/2021 20:55:00 EDT acetaminophen,650mg Oral,Temperature Pain Assessment Pain Scale Goal : 3 Pain Scl Goal Comment : temp decreased Marley Huizar Non Emp RN - 01/06/2021 1:29 EDT documented in this encounter Plan of Treatment Not on file documented as of this encounter Visit Diagnoses Not on filedocumented in this encounter
--- OUTSIDE RECORDS SUMMARY | 2025-01-05 12:55 | XMS_ITS | Encounter Summary ---
Author Organization [facility] Address [address] [place] [address] Care Team Providers Care Key Account Representative Name Role Phone Unavailable Primary Care Provider Unavailabl e Encounter Details Date Type Department Care Team (Late st Contact Info) Description 01/18/2021 Transcribed Document [facility] [place] [address] [place] [address] ProviderMacrina MD [address] [place], [place] [address] Social History Tobacco Use Types Packs/Day Years Used Date Smoking Tobacco: Never Assessed Sex and Gender Information Value Date Recorded Sex Assigned at Not on file Legal Sex Male 1:13 PM CDT Gender Identity Not on file Sexual Orientation Not on file documented as of this encounter Miscellaneous Notes * Cerner Conversion Note - Historical ProviderMD - 01/18/2021 3:37 PM CDT Event Note Entered On: 01/18/2021 15:38 EDT Performed On: 01/18/2021 15:37 EDT by Misty Schmitt Lpn Event Note Event Date/Time : 01/18/2021 15:37 EDT Description of Event : pt report given to Maryann HOWE @ [facility] via phone pt to be picked up by [facility] van @ [id number]. Misty Schmitt Lpn - 01/18/2021 15:37 EDT Electronically signed by Elmer [facility] Conversion [employer] Consultant Guanaco at 11/10/2022 9:23 AM CDT documented in this encounter Plan of Treatment Not on file documented as of this encounter Visit Diagnoses Not on filedocumented in this encounter
--- OUTSIDE RECORDS SUMMARY | 2025-01-05 12:55 | XMS_ITS | Referral Summary ---
Author Organization [facility] In iatives Address [address] [place] [address] Care Team Providers Care Geomatics Professor Name Role Phone Unavailable Primary Care Provider Unavailabl e Allergies No known active allergies Medications DULoxetine (CYMBALTA) 60 MG capsule Take 1 capsule (60 mg total) by mouth 2 (two) times daily. Active gabapentin (NEURONTIN) 300 MG capsule Take 3 capsules (900 mg total) by mouth as directed Take 3 capsules by mouth every morning and 4 capsules at bedtime.. Active diphenoxylate-a tropine (LOMOTIL) 2.5-0.025 mg per tablet Take 1 tablet by mouth every 4 (four) hours. Max Daily Amount: 6 tablets Active lisinopriL (PRINIVIL,ZESTR IL) 10 MG tablet Take 1 tablet (10 mg total) by mouth daily. Active Active Problems Problem Noted Date Diagnosed Date Non-ischemic cardiomyopathy 03/25/2024 HTN (hypertension) 03/25/2024 Aortic stenosis 03/25/2024 Overview (03/25/2024): S/p TAVR 12/27/2020 Carotid bruit 03/25/2024 Mixed hyperlipidemia 03/25/2024 Social History Tobacco Use Types Packs/Day Years Used Date Smoking Tobacco: Never Smokeless Tobacco: Never Tobacco Cessation:Counseling Given: Not Answered Alcohol Use Standard Drinks/Week Comments Not Currently 0 (1 standard drink = 0.6 oz pur e alcohol) Interpersonal Safety Answer Date Record ed Family or friends hurt you Not on file 02/16 Family or friends insult you Not on file Family or friends threaten you Not on file 0 02/17/2024 Family or friends scream or curse at you Not on file 02/17/2024 Family and Community Support Answer Dev e Recorded Help with Day to Day Activities Not on file 02/17/2024 Feeling Lonely or Isolated Not on file 02/16 Educational Attainment Answer Date Derek rded Speak language other than Honduran at home Not on file 02/17/2024 Want help with school or training Not on file 02/17/2024 Depression Answer Date Recorded PHQ-2 Risk Not on file 02/17/2024 Disabilities Answer Date Recorded Difficulty concentrating Not on file 024 Difficulty doing errands alone Not on file 0 02/17/2024 Substance Use Answer Date Recorded Used prescription meds for non-medical reasons N ot on file 02/17/2024 Used illegal drugs past 12 months Not on file 02/17/2024 Sex and Gender Information Value Date Recorded Sex Assigned at Not on file Legal Sex Male 1:13 PM CDT Gender Identity Not on file Sexual Orientation Not on file Last Filed Vital Signs Vital Sign Reading Time Taken Comments Blood Pressure 118/78 04/05/2024 10:56 AM EDT Pulse 69 04/05/2024 10:56 AM EDT Temperature - - Respiratory Rate - - Oxygen Saturation 98% 04/05/2024 10:56 AM EDT Inhaled Oxygen Concentration - - Weight 60.4 kg (133 lb 3.2 oz) 04/05/2024 10:56 AM EDT Height 172.7 cm (5' 8 ) 04/05/2024 10:56 AM EDT Body Mass Index 20.25 04/05/2024 10:56 AM EDT Plan of Treatment [place] [address] [facility] MEDICARE ADVANTAGE
--- OUTSIDE RECORDS SUMMARY | 2025-01-05 12:55 | XMS_ITS | Encounter Summary ---
Author Organization [employer] [facility] Address [address] [place] [address] Care Team Providers Care Tag Machine Operator Name Role Phone Unavailable Primary Care Provider Unavailabl e Encounter Details Date Type Department Care Team (Late st Contact Info) Description 12/27/2020 Transcribed Document [facility] Family Medicine [address] [place] [address] ProviderMacrina MD [address] [place], [place] [address] Social History Tobacco Use Types Packs/Day Years Used Date Smoking Tobacco: Never Assessed Sex and Gender Information Value Date Recorded Sex Assigned at Not on file Legal Sex Male 1:13 PM CDT Gender Identity Not on file Sexual Orientation Not on file documented as of this encounter Miscellaneous Notes * Cerner Conversion Note - Macrina ProviderMD - 12/27/2020 6:37 PM CDT Spiritual Care Assessment Entered On: 12/27/2020 18:38 EDT Performed On: 12/27/2020 18:37 EDT by LAVERN VALDIVIA Chaplain General Information Initial Visit : No Referred by : Eligibility Specialist follow-up Ministry Provided to : Patient, Family/Significant other LAVERN VALDIVIA Chaplain - 12/27/2020 18:37 EDT Spiritual Assessment Spiritual Assessment Comment/Summary Points : follow up visit when other family arrived. Patient's son, Tiago, and his , Blanca, came for support for Evelia. Additional hospitality and supportive ministry provided for family. Spirital Assessment Comment/Summary Report : SPIRITUAL ASSESSMENT COMMENT/SUMMARY Spiritual Assessment Comment/Summary 12/27/20 18:36:00 follow up visit as recommended by previous hog sticker. Supportive presence and conversation provided for patient's , Evelia. Patient had to have an additional visit to surgery, making a total of three. Signed By: LAVERN VALDIVIA Chaplain Spiritual Assessment Comment/Summary 12/27/20 13:10:00 Follow up with in consult room. Consulted with RN and relayed info. about approx. time can visit. Signed By: BRISSA SULLIVAN Spiritual Assessment Comment/Summary 12/27/20 11:45:00 Provided crisis support, prayer and hospitality to during and following code. Plan to follow for support. Signed By: BRISSA SULLIVAN Spiritual Assessment Comment/Summary 12/27/20 06:40:00 Provided pre-surgery visit and prayer with patient and . Signed By: BRISSA SULLIVAN DAVID L, Chaplain - 12/27/2020 18:37 EDT documented in this encounter Plan of Treatment Not on file documented as of this encounter Visit Diagnoses Not on filedocumented in this encounter
--- OUTSIDE RECORDS SUMMARY | 2025-01-05 12:55 | XMS_ITS | Encounter Summary ---
Author Organization [facility] [employer] [facility] Address [address] [place] [address] Care Team Providers Care Industrial Arts Public [employer] Teacher Name Role Phone Unavailable Primary Care Provider Unavailabl e Encounter Details Date Type Department Care Team (Late st Contact Info) Description 01/18/2021 Transcribed Document [facility] [place] [address] [place] [address] ProviderMacrina MD [address] [place], [place] 664731 Social History Tobacco Use Types Packs/Day Years Used Date Smoking Tobacco: Never Assessed Sex and Gender Information Value Date Recorded Sex Assigned at Not on file Legal Sex Male 1:13 PM CDT Gender Identity Not on file Sexual Orientation Not on file documented as of this encounter Miscellaneous Notes * Cerner Conversion Note - Historical ProviderMD - 01/18/2021 12:41 PM CDT Clinical Dietitian Note Entered On: 01/18/2021 12:41 EDT Performed On: 01/18/2021 12:41 EDT by Tamy Wolff Dietitian Clinical Dietitian Note Clinical Dietitian Note : 01/18: RD f/up. Pt discharging to [facility] today. S/p PEG placement on 01/17. RN reports TF was resumed this morning at 5AM and currently running @ 35ml/hr. Pt is tolerating well per RN with no residuals. Tamy Wolff Dietitian - 01/18/2021 12:41 EDT Electronically signed by Olinda Payne Conversion Cardiothoracic Physiotherapist Guanaco at 11/10/2022 9:25 AM CDT documented in this encounter Plan of Treatment Not on file documented as of this encounter Visit Diagnoses Not on filedocumented in this encounter
--- OUTSIDE RECORDS SUMMARY | 2025-01-05 12:55 | XMS_ITS | Encounter Summary ---
Author Organization [facility] Address [address] [place] [address] Care Team Providers Care Fatback Trimmer Name Role Phone Unavailable Primary Care Provider Unavailabl e Encounter Details Date Type Department Care Team (Late st Contact Info) Description 12/30/2020 Transcribed Document [facility] Family Medicine [address] [place] [address] ProviderMacrina MD [address] [place] [address] Social History Tobacco Use Types Packs/Day Years Used Date Smoking Tobacco: Never Assessed Sex and Gender Information Value Date Recorded Sex Assigned at Not on file Legal Sex Male 1:13 PM CDT Gender Identity Not on file Sexual Orientation Not on file documented as of this encounter Miscellaneous Notes * Cerner Conversion Note - Macrina Cordova MD - 12/30/2020 5:00 AM CDT Height and Weight, Routine Entered On: 12/30/2020 6:56 EDT Performed On: 12/30/2020 5:00 EDT by RON URENA RN Height and Weight, Routine Routine Weight Source : Bed scale Routine Weight Entry Format : Metric Routine Weight, Kilograms : 78.6 kg(Converted to: 173 lb 5 oz) Routine Weight Calculation : 78.6 kg Height Source : Measured Height Entry Format : [place] Height, Feet : 0 ft Height, Inches : 67.75 Inch Clinical Height : 172.09 cm Body Surface Area (BSA), Routine : 1.92 m2 Body Mass Index (BMI), Routine : 26.54 kg/m2 RON URENA RN - 12/30/2020 6:56 EDT documented in this encounter Plan of Treatment Not on file documented as of this encounter Visit Diagnoses Not on filedocumented in this encounter
--- OUTSIDE RECORDS SUMMARY | 2025-01-05 12:55 | XMS_ITS | Encounter Summary ---
Author Organization [facility] Address [address] [place] [address] Care Team Providers Care Pail Tester Name Role Phone Unavailable Primary Care Provider Unavailabl e Encounter Details Date Type Department Care Team (Late st Contact Info) Description 12/30/2020 Transcribed Document [facility] [place] Family Medicine [address] [place] [address] ProviderMacrina MD [address] [place], [place] 758441 Social History Tobacco Use Types Packs/Day Years Used Date Smoking Tobacco: Never Assessed Sex and Gender Information Value Date Recorded Sex Assigned at Not on file Legal Sex Male 1:13 PM CDT Gender Identity Not on file Sexual Orientation Not on file documented as of this encounter Miscellaneous Notes * Cerner Conversion Note - Historical ProviderMD - 12/30/2020 9:[address] [facility] Charges Entered On: 12/30/2020 9:25 EDT Performed On: 12/30/2020 9:00 EDT by Earnestine Connor Physical Therapist [facility] Charg[facility] Physical Therapy Screen : 1 Earnestine Connor Physical Therapist - 12/30/2020 9:21 EDT documented in this encounter Plan of Treatment Not on file documented as of this encounter Visit Diagnoses Not on filedocumented in this encounter
--- OUTSIDE RECORDS SUMMARY | 2025-01-05 12:55 | XMS_ITS | Encounter Summary ---
Author Organization [facility] Address [address] [place] [address] Care Team Providers Care Hand Fabric Cutter Name Role Phone Unavailable Primary Care Provider Unavailabl e Encounter Details Date Type Department Care Team (Late st Contact Info) Description 12/27/2020 Transcribed Document [facility] Family Medicine [address] [place] [address] ProviderMacrina MD [address] [place] [address] Social History Tobacco Use Types Packs/Day Years Used Date Smoking Tobacco: Never Assessed Sex and Gender Information Value Date Recorded Sex Assigned at Not on file Legal Sex Male 1:13 PM CDT Gender Identity Not on file Sexual Orientation Not on file documented as of this encounter Miscellaneous Notes * Cerner Conversion Note - Macrina ProviderMD - 12/27/2020 6:03 PM CDT Consult Phone Call Documentation Entered On: 12/27/2020 22:22 EDT Performed On: 12/27/2020 18:03 EDT by Manny Spencer, SHYAM Phone Call for Consults Consult Phone Call/Page Attempt : First call Provider Service Notified Name : Cardiology Physician Covering for Consult : DANYELLE WALTERS MD-Manny Murray RN - 12/27/2020 22:22 EDT documented in this encounter Plan of Treatment Not on file documented as of this encounter Visit Diagnoses Not on filedocumented in this encounter
--- OUTSIDE RECORDS SUMMARY | 2025-01-05 12:55 | XMS_ITS | Encounter Summary ---
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 Name Role Phone Unavailable Primary Care Provider Unavailabl e Encounter Details Date Type Department Care Team (Late st Contact Info) Description 11/15/2019 Transcribed Document [facility] Family Medicine [address] [place] [address] ProviderMacrina MD [address] [place], [place] [id number] Social History Tobacco Use Types Packs/Day Years Used Date Smoking Tobacco: Never Assessed Sex and Gender Information Value Date Recorded Sex Assigned at Not on file Legal Sex Male 1:13 PM CDT Gender Identity Not on file Sexual Orientation Not on file documented as of this encounter Miscellaneous Notes * Cerner Conversion Note - Marcina ProviderMD - 11/15/2019 1:53 PM CDT Stroke/Warfarin Instructions Entered On: 11/15/2019 13:54 EDT Performed On: 11/15/2019 13:53 EDT by JASON TAVAREZ RN Stroke/Warfarin Instructions Stroke/TIA Discharge Ins : Open Warfarin Discharge Ins : N/A JASON TAVAREZ RN - 11/15/2019 13:53 EDT Stroke/TIA Discharge Instructions Individualized Stroke Risk Factors *Q : Hypertension/High blood pressure, Other: Aortic stenosis Stroke Education Handouts Given *Q : Yes JASON TAVAREZ RN - 11/15/2019 13:53 EDT Stroke Education Materials Given-Grid Activation of EMS *Q : Verbalizes understanding Follow-up Care After Discharge *Q : Verbalizes understanding Medications prescribed at DC *Q : Verbalizes understanding Risk Factors for Stroke *Q : Verbalizes understanding Warning S&S of Stroke *Q : Verbalizes understanding JASON TAVAREZ RN - 11/15/2019 13:53 EDT Stroke/TIA Signs/Symptoms to Report Immediately : Sudden onset difficulty speaking, Sudden onset difficulty understanding speech, Sudden onset change in vision, Sudden onset weakness particulary on one side of the body, Sudden onset numbness/tingling, Sudden severe headache, Sudden dizziness or trouble with gait, Call : EMS activation is crucial My LDL Level: : LDL Level No qualifying data available. JSAON TAVAREZ RN - 11/15/2019 13:53 EDT documented in this encounter Plan of Treatment Not on file documented as of this encounter Visit Diagnoses Not on filedocumented in this encounter
--- OUTSIDE RECORDS SUMMARY | 2025-01-05 12:55 | XMS_ITS | Encounter Summary ---
Author Organization [facility] Address [address] [place] [id number] Care Team Providers Care Vp Revenue Cycle Name Role Phone Unavailable Primary Care Provider Unavailabl e Encounter Details Date Type Department Care Team (Late st Contact Info) Description 11/15/2019 Transcribed Document [facility] Family Medicine [address] [place] [address] ProviderMacrina MD [address] [place] [address] Social History Tobacco Use Types Packs/Day Years Used Date Smoking Tobacco: Never Assessed Sex and Gender Information Value Date Recorded Sex Assigned at Not on file Legal Sex Male 1:13 PM CDT Gender Identity Not on file Sexual Orientation Not on file documented as of this encounter Miscellaneous Notes * Cerner Conversion Note - Macrina Cordova MD - 11/15/2019 1:54 PM CDT [facility] [address] [place] [address] HUONG, JOSE L :1940 Visit Time:11/15/2019 Your Visit Summary Your Care Team Admitting Physician - DANYELLE GOMEZ MD-CAR Attending Physician - DANYELLE GOMEZ MD-CAR Primary Care Physician - PERICO AWAN (REF)ROSIO Referring Physician - DANYELLE GOMEZ MD-CAR Your Diagnosis Nonrheumatic aortic (valve) stenosis, Nonrheumatic aortic (valve) stenosis Discharge Vitals Heart Rate (Monitored) 80 Respiratory Rate 24 Blood Pressure 136/75 What to do next Instructions From Your Care Team Diet after Discharge: Resume usual diet as tolerated, _, _ Activity after Discharge: _, Rest and relax today, _ Lifting Restrictions: No heavy lifting over 10 pounds Driving after Discharge: Do not drive for 24 hours Showering/Bathing: Can remove dressing and shower after 24 hours. No tub baths or soaking for 5 days. , _ Notify Provider of: Complications If you have an emergency please call 911. Follow-Up Appointments Follow Up with DANYELLE GOMEZ When Within 2 to 4 weeks Comments Follow up with Dr. Gomez in 3 weeks via telemedicine visit. Please call Marissa Mckay to arrange [phone]. Where: [address] [place] [id number] [place] (1) Medications What How Much When Instructions Next Dose atorvastatin (atorvastatin 20 mg oral tablet) Oral Every Day lisinopril (lisinopril 10 mg oral tablet) 1 Tablet(s) Oral Two Times A Day omeprazole (PriLOSEC 20 mg oral delayed release capsule) 1 Capsule(s) Oral Every Day before a meal Take your medications faithfully. Do NOT skip medication. Do NOT stop taking medications without the direction of a physician. Carry a list of your medications with you at all times, and take this medication list with you to your first follow up visit. Report any side effects. Avoid herbal remedies unless discussed with your physician. As part of your treatment plan, your physician may have prescribed a limited course of a controlled substance. This medication may be given to help people with moderate or severe pain or for other medical conditions, but there are risks involved with treatment. Common side effects may include nausea, constipation, drowsiness, sweating, itching, dry mouth, and rash. More serious side effects may include cognitive and motor impairment, like problems with thinking, concentrating, alertness, and movement (e.g. slowed reflexes), and driving and operating heavy machinery can be dangerous. It is important for you to talk to your physician if you have these side effects or questions. These controlled substances can produce physical dependence and be habit-forming if taken for an extended period of time, which means that the body has gotten used to them and may experience withdrawal symptoms if they are abruptly stopped. Withdrawal symptoms can include runny nose, sweating, goose bumps, diarrhea, abdominal cramping, rapid heartbeat, difficulty sleeping, and nervousness. Please dispose of unused and medications per your retail pharmacy guidance. Allergies No Known Allergies Immunizations This Visit No Immunizations Found Stroke/TIA Instructions Individualized Stroke Risk Factors Individualized Stroke Risk Factors *Q: Hypertension/High blood pressure, Other: Aortic stenosis Stroke/TIA Signs/Symptoms to Report Immediately: Sudden onset difficulty speaking, Sudden onset difficulty understanding speech, Sudden onset change in vision, Sudden onset weakness particulary on one side of the body, Sudden onset numbness/tingling, Sudden severe headache, Sudden dizziness or trouble with gait, Call : EMS activation is crucial Mutually Agreed Upon Goals My LDL Level: My LDL Level: Education Materials Angiogram, Care After This sheet gives you [...] and water are not available, use hand wrapper stemmer operator. ? Change your dressing as told [...] care provider approves. ??? You may shower 24???48 hours after the procedure or as told [...] by your health care provider, usually for 1???2 days. ??? Do not lift anything that [...] contrast dye from your body. ??? Take iepf-qko-vyyybap and prescription medicines only as told by [...] okay to do so. You may shower 24???48 hours after the procedure or as told [...] 01/29/2006 Document Revised: 06/17/2017 Document Reviewed: 06/17/2017 [employer] Patient Education ?? 2019 [employer]. Valvuloplasty, Care After This sheet gives you [...] and water are not available, use hand wrapper stemmer operator. ? Change your dressing as told [...] of beer, 5 oz of wine, or 1?? oz of hard liquor. ??? Do not use any products that contain nicotine or tobacco, such as cigarettes and e-cigarettes. If you need help quitting, ask your health care provider. General instructions ??? Take bztn-frs-lxrbunb and prescription medicines only as told by your health care provider. ??? Do not take baths, swim, or use a hot tub until your health care provider approves. ??? To prevent or treat constipation while you are taking prescription pain medicine, your health care provider may recommend that you: ? Drink enough fluid to keep your urine clear or pale yellow. ? Take mper-kss-kqqwjyv or prescription medicines. ? Eat foods that [...] 11/27/2015 Document Revised: 06/09/2017 Document Reviewed: 06/09/2017 [employer] Patient Education ?? 2019 [employer] Moderate Conscious Sedation, Adult, Care After These [...] you are awake and alert. ??? Take chmh-uxe-upswurz and prescription medicines only as told by [...] 05/03/2014 Document Revised: 12/15/2016 Document Reviewed: 11/01/2016 [employer] Patient Education ?? 2019 [employer] Groin Site Care Refer to this sheet [...] questions after your procedure. HOME CARE INSTRUCTIONS ??? You may shower 24 hours after the procedure. Remove the bandage (dressing ) and gently wash the site with plain soap and water. Gently pat the site dry. ??? Do not apply powder or lotion to the site. ??? Do not sit in a bathtub, swimming pool, or whirlpool for 5 to 7 days. ??? No bending, squatting, or lifting anything over 10 pounds (4.5 kg) as directed by your caregiver. ??? Inspect the site at least twice daily. ??? Do not drive home if you are discharged the same day of the procedure. Have someone else drive you. ??? You may drive 24 hours after the procedure unless otherwise instructed by your caregiver. What to expect: ??? Any bruising will usually fade within 1 to 2 weeks. ??? Blood that collects in the tissue (hematoma ) may be painful to the touch. It should usually decrease in size and tenderness within 1 to 2 weeks. SEEK IMMEDIATE MEDICAL CARE IF: ??? You have unusual pain at the groin site or down the affected leg. ??? You have redness, warmth, swelling, or pain at the groin site. ??? You have drainage (other than a small amount of blood on the dressing). ??? You have chills. ??? You have a fever or persistent symptoms for more than 72 hours. ??? You have a fever and your symptoms suddenly get worse. ??? Your leg becomes pale, cool, tingly, or numb. ??? You have heavy bleeding from the site. Hold pressure on the site. Document Released: 08/15/2011 Document Revised: 10/04/2012 Document Reviewed: 08/15/2011 ExitCare?? Patient Information ??2014 [employer]. Emergency Awareness and Preventative Care STROKE is an EMERGENCY Every Minute Counts Act FAST and Check for these signs: FACE Does the face look uneven? ARM Does one arm drift down? SPEECH Does their speech sound strange? TIME Call at any sign of stroke Stroke Risk Factors Atrial Fibrillation (irregular heartbeat) Diabetes Family history of stroke Heart Disease Heavy alcohol use High Blood Pressure High Cholesterol Physical inactivity and obesity Smoking Cigarette Smoking The facts are clear, cigarette smoking will shorten your life. Smoking can cause many illnesses along the way. As a healthcare provider, we recommend that you stop smoking. Assistance with quitting is available by contacting 2-081-KKEGNOW. This is a free resource providing counseling, support, and referral. Or you may contact your personal physician. [place] Suicide Prevention Lifeline: The National Suicide Prevention Lifeline is a national network of local crisis centers that provides free and confidential emotional support to people in suicidal crisis or emotional distress 24 hours a day, 7 days a week. Don't Wait! Stop a Heart Attack Before it Starts What is a heart attack? A heart attack is damage or to a part of the heart from severely decreased or lack of blood flow to the heart. Over time, arteries can become narrow from the buildup of fat and cholesterol, which is called plaque. The plaque can rupture causing a blood clot to form. When the blood clot forms, the artery can become severely narrowed or completely blocked, causing a heart attack. Heart attack is the leading cause of in the [place]. 85% of muscle damage occurs within the first 2 hours. Delay in the recognition of heart attack symptoms increases the chances of . Know the early symptoms of a heart attack: Nausea Feeling of fullness in chest Jaw Pain Pain that travels down one or both arms Fatigue/being tired Anxiety Back Pain Chest pressure, squeezing, or discomfort Shortness of breath Sweating, or a cold sweat Feeling of impending doom There are unusual signs of a heart attack, too! Women, the elderly, and diabetics may present with atypical symptoms: Fainting/dizziness Weakness Confusion Risk Factors for a Heart Attack Some heart disease risk factors, such as age and family history, cannot be changed. Others, like smoking and lack of exercise, can be changed. Smoking High Cholesterol High Blood Pressure Family History Obesity Age Gender (Males are at higher risk) Lack of Exercise Diabetes Diet Stress Excessive Alcohol Intake If you or someone you know is experiencing the signs and symptoms of a heart attack, DON???T DELAY. Call immediately and seek help. If someone collapses, perform CPR! Do not attempt to drive if you are having symptoms of heart attack. Hands-Only CPR Why Hands-Only CPR? Hands-Only CPR has been shown to be as effective as conventional CPR for cardiac arrests that occur outside of a hospital. Survival depends on immediately receiving CPR from someone nearby. How do you perform Hands-Only CPR? There are two easy steps: Call if you see a teen or adult collapse Push hard and fast in the center of the chest at a beat of 100 beats per minute. Save a life! 4 WAYS TO GET AHEAD OF SEPSIS SEPSIS is a MEDICAL EMERGENCY. Time matters! Infections put you and your family at risk for a life-threatening condition called sepsis. Sepsis is the body's extreme response to an infection. It is life-threatening, and without timely treatment, sepsis can rapidly lead to tissue damage, organ failure, and . Sepsis happens when an infection you already have-in your skin, lungs, urinary tract or somewhere else-triggers a chain reaction throughout your body. 1 PREVENT INFECTIONS Take good care of chronic conditions. Talk to your doctor about getting the recommended vaccines. 2 PRACTICE GOOD HYGIENE Wash your hands frequently. Keep cuts or open sores clean and covered until they are healed. 3 KNOW THE SYMPTOMS Confusion or disorientation Shortness of breath High heart rate Fever, shivering, or feeling very cold Extreme pain or discomfort Clammy or sweaty skin 4 ACT FAST Get medical care IMMEDIATELY if you suspect sepsis or if you have an infection that is not getting better or is getting worse. To learn more about sepsis and how to prevent infections, visit www.cdc.gov/sepsis. Test Results Laboratory or Other Results This Visit (last charted value for your 11/15/2019 visit) Hematology 11/15/2019 7:22 AM Platelet Count: 219 K/uL -- Normal range between ( 163 and 369 ) Patient Name:JOSE ADORNO I have received and understand this information and was given the opportunity to ask questions. Patient/Religion Professor Name: Patient/Religion Professor Signature: Relationship to Patient: Clinician/Hospital Religion Professor Signature: Date: Electronically signed by Elmer, [facility] Air Brake Rigger Guanaco at 11/10/2022 9:20 AM CDT documented in this encounter Plan of Treatment Not on file documented as of this encounter Visit Diagnoses Not on filedocumented in this encounter
--- OUTSIDE RECORDS SUMMARY | 2025-01-05 12:55 | XMS_ITS | Encounter Summary ---
Author Organization [facility] Address [address] [place] [address] Care Team Providers Care Security Threat Analyst Name Role Phone Unavailable Primary Care Provider Unavailabl e Encounter Details Date Type Department Care Team (Late st Contact Info) Description 12/27/2020 Transcribed Document [facility] [place] [facility] [place] [address] ProviderMacrina MD [address] [id number] Social History Tobacco Use Types Packs/Day Years Used Date Smoking Tobacco: Never Assessed Sex and Gender Information Value Date Recorded Sex Assigned at Not on file Legal Sex Male 1:13 PM CDT Gender Identity Not on file Sexual Orientation Not on file documented as of this encounter Miscellaneous Notes * Cerner Conversion Note - Macrina Cordova MD - 12/27/2020 12:39 PM CDT Patient: JOSE ADORNO Age: 80 years Sex: Male : 1940 Associated Diagnoses: None Author: PAT BEAVERS MD Referring physician: Dr. Gomez Reason for [...] Never a smoker Family history: Heart disease Review of Systems Unable to obtain: Patient sedated on ventilator.. Health Status Allergies: Allergic Reactions (Selected) No Known Allergies, No qualifying data available Current medications: (Selected) Inpatient Medications Ordered Ambien: 5 mg, Oral, At Bedtime, PRN: Sleep Ancef: 2 Gram, 50 mL, 100 mL/Hr, IV Piggyback, 1-Time Dulcolax Laxative: 10 mg, Rectal, Daily, PRN: Constipation Lactated Ringers Injection intravenous solution 1,000 mL: 20 mL/Hr, IntraVENous Milk of Magnesia 8% oral suspension: 30 mL, Oral, Daily, PRN: Constipation Nitrostat: 0.4 mg, SubLINgual, Q5Min, PRN: Chest Pain Normal Saline Flush: 10 mL, IV Push, Q12H Plavix: 75 mg, Oral, Daily Senokot S: 1 Tab, Oral, BID Sodium Chloride 0.9% intravenous solution 500 mL: 30 mL/Hr, IntraVENous Zofran: 4 mg, IV Push, Q6H, PRN: Nausea/Vomiting aspirin: 81 mg, Oral, Daily phenylephrine 20 mg + Sodium Chloride 0.9% intravenous solution 250 mL: TITRATE, IntraVENous vasopressin injection 20 Units + NaCl 0.9% for drip 100 mL: Titrate, IntraVENous Documented Medications Documented PriLOSEC: 10 mg, Oral, BID, 0 Refill(s) amLODIPine: 5 mg, Oral, Daily, 0 Refill(s) atorvastatin 20 mg oral tablet: Tab, Oral, At Bedtime, 0 Refill(s) gabapentin: 300 mg, Oral, Daily, 0 Refill(s) gabapentin: 600 mg, Oral, At Bedtime, 0 Refill(s) lisinopril 10 mg oral tablet: 1 Tab, Oral, BID, 0 Refill(s), Medications (14) Active Scheduled: (5) #NaCl 0.9% *FLUSH* inj 10 mL 10 mL, IV Push, Q12H aspirin 81 mg chew tab 81 mg 1 Tab, Oral, Daily ceFAZolin/D5w 2 Gram 50 mL, IV Piggyback, 1-Time clopidogrel 75 mg tab 75 mg 1 Tab, Oral, Daily senna/docusate 8.6/50 mg tab 1 Tab, Oral, BID Continuous: (4) lactated ringers 1,000 mL 1,000 mL, IntraVENous, 20 mL/Hr NaCl 0.9% TITRATE 500 mL 500 mL, IntraVENous, 30 mL/Hr phenylephrine 20 mg + NaCl 0.9% T ITRATE 250 mL 250 mL, IntraVENous vasopressin 20 Units + NaCl 0.9% TITRATE 100 mL 100 mL, IntraVENous PRN: (5) bisacodyl 10 mg supp 10 mg 1 Supp, Rectal, Daily magnesium hydroxide 8% liq 30 mL 30 mL, Oral, Daily nitroglycerin 0.4 mg tab # 25 btl 0.4 mg 1 Tab, SubLINgual, Q5Min ondansetron 4 mg/2 mL inj 4 mg 2 mL, IV Push, Q6H zolpidem 5 mg tab 5 mg 1 Tab, Oral, At Bedtime Problem list: All Problems Aortic stenosis, severe / SNOMED CT 1751832347 / Confirmed Hypertension / SNOMED CT 03769501 / Confirmed Hyperlipidemia / SNOMED CT 39115923 / Confirmed HTN - Hypertension / SNOMED CT 3561642624 / Confirmed H/O peripheral neuropathy / SNOMED CT 721279232 / Confirmed feet tingle all the time GERD - Gastro-esophageal reflux disease / SNOMED CT 8327842400 / Confirmed Disorder of prostate / SNOMED CT 98295847 / Confirmed Colorectal surgery / SNOMED CT 0175109702 / Confirmed Back pain, chronic / SNOMED CT 815101270 / Confirmed Chronic anxiety / SNOMED CT 262444337 / Confirmed At risk for sleep apnea / IMO 28190167 / Confirmed Arthritis of right knee / SNOMED CT 9314346116 / Confirmed Aortic valve stenosis / SNOMED CT 186254993 / Confirmed Resolved: Cancer of colon / SNOMED CT 3653886135, Active Problems (13) Aortic stenosis, severe Aortic valve stenosis Arthritis of right knee At risk for sleep apnea Back pain, chronic Chronic anxiety Colorectal surgery Disorder of prostate GERD - Gastro-esophageal reflux disease H/O peripheral neuropathy HTN - Hypertension Hyperlipidemia Hypertension Physical Examination VS/Measurements Vitals Signs (last 24 hrs) Last Charted Minimum Maximum Temp 97.9 (DEC 27 06:00) 97.9 (DEC 27 06:00) 97.9 (DEC 27 06:00) Apical HR 64 (DEC 27 06:00) 64 (DEC 27 06:00) 64 (DEC 27 06:00) Mon HR 79 (DEC 27 10:30) 68 (DEC 27 10:15) 79 (DEC 27 10:30) Resp Rate 15 (DEC 27 10:30) 15 (DEC 27 10:26) H 21 (DEC 27 10:15) SBP H 174 (DEC 27 06:00) H 174 (DEC 27 06:00) H 174 (DEC 27 06:00) DBP 81 (DEC 27 06:00) 81 (DEC 27 06:00) 81 (DEC 27 06:00) MAP 65 (DEC 27 10:30) 40 (DEC 27 10:26) 72 (DEC 27 10:15) SpO2 L 93 (DEC 27 10:30) L 92 (DEC 27 10:26) 99 (DEC 27 10:15) General: Sedated on mechanical ventilator. RASS -4. CAM ICU +. Eye: Pupils are equal, round and reactive to light, Normal conjunctiva. HENT: Normocephalic, Oral ET tube. Mouth: Oral mucosa ( Dry ). Neck: Supple, No lymphadenopathy. Respiratory: Breath sounds are equal, Coarse breath sounds bilaterally with diminished breath sounds in bilateral bases.. Support: Chest tube, Ventilator. Cardiovascular: Irregularly irregular rhythm, Tachycardia. Gastrointestinal: Soft, Non-distended. Bowel sounds: All four quadrants, Diminished. Support: Gastric tube ( Nasal ). Genitourinary: Support: Urinary catheter ( Indwelling ). Musculoskeletal: No swelling, No deformity. Integumentary: Warm, Dry. Integumentary exam: Pale. Neurologic: Sedated on ventilator. RASS -4. CAM ICU +. Psychiatric: Unable to assess. Review / Management Results review: Labs (Last four charted values) WBC H 17.9 (DEC 27) H 9.9 (DEC 25) HB L 6.9 (DEC 27) L 8.3 (DEC 27) 14.3 (DEC 25) HCT L 21.1 (DEC 27) L 24.8 (DEC 27) 42.2 (DEC 25) Plt L 75 (DEC 27) L 113 (DEC 27) 198 (DEC 25) Na 141 (DEC 25) K 3.7 (DEC 25) Cl 109 (DEC 25) CO2 28 (DEC 25) BUN 15 (DEC 25) Cr 0.70 (DEC 25) Glu R H 111 (DEC 25) Ca 9.0 (DEC 25) PT H 18.7 (DEC 27) 11.4 (DEC 25) INR H 1.8 (DEC 27) 1.1 (DEC 25) PTT H 55.9 (DEC 27) 26.8 (DEC 25) AST 19 (DEC 25) ALT 20 (DEC 25) ALK P 107 (DEC 25) T Bili 1.0 (DEC 25) PTN 6.6 (DEC 25) ALB 3.4 (DEC 25) Troponin <0.015 (DEC 25) . Blood Gases (Current Encounter/Past 24 Hours) pH Art 12/27/2020 11:52 pCO2 Art 12/27/2020 11:52 pO2 Art 12/27/2020 11:52 HCO3 Art 12/27/2020 11:52 BE Art 12/27/2020 11:52 sO2 Art 12/27/2020 11:52 tHb Art 12/27/2020 11:52 FHHb 12/27/2020 11:52 ctO2 12/27/2020 11:52 FIO2 Art 12/27/2020 11:52 Delivery Device Type Art 12/27/2020 11:52 Temperature, F Art 12/27/2020 11:52 Art Blood Gas (ABG) Site 12/27/2020 11:52 Acceptable Grey's Test Art 12/27/2020 11:52 Ventilator Mode Art 12/27/2020 11:52 pH Art POC 7.259 LOW 12/27/2020 12:11 pCO2 Art POC 42.2 12/27/2020 12:11 pO2 Art POC 245.0 [place] 12/27/2020 12:11 HCO3 Art POC 18.9 LOW 12/27/2020 12:11 tCO2 Art POC 20.0 LOW 12/27/2020 12:11 BE Art POC -8.0 LOW 12/27/2020 12:11 sO2 Art POC >99.9 [place] 12/27/2020 12:11 ABG Num of Draw Attempts 12/27/2020 11:52 PaO2/FiO2 calculated 12/27/2020 11:52 No Radiology Results Found 12/14/2020 PFTS SPIROMETRY: 1. 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 PEA arrest on 12/27- ROSC achieved after 11 minute Cardiogenic shock Echo 12/25/2020: EF 55%, grade II diastolic dysfunction, trace AR, severe New onset Afib History of hypertension Heme Acute blood loss anemia Thrombocytopenia Leukocytosis Renal Metabolic acidosis Electrolyte disturbances ID Leukocytosis Covid-19 negative Endocrine Glycemic control Neuro Sedated on vent Plan: Vent bundle - titrate FiO2 to maintain sats 89-94% - current vent settings AC 18, TV 460, PEEP 5, FiO2 65% Stat chest x-ray - rib fracture noted - continue to follow chest x-rays Stat ABG Stat labs: cbc, cmp, mag, phos, ical, lactic acid, pt/inr, ptt Sedation: Fentanyl drip for goal RASS -1 Hemodynamics: Patricio and Vaso for goal MAP >65 Amiodarone drip per cardiology for new A.fib Antibiotics: Ancef per cardiology Serial H and H Q6H Lactic acid monitor Monitor BMP I have personally evaluated the patient; history and review of systems, physical examination, laboratory studies and radiology data. I have actively directed the medical care, formulated diagnosis and plan and discussed it with our team. Prognosis: guarded. Very critically unstable, hemorrhagic shock, pericardial tamponade status post window, left ventricular perforation, acute hypoxic respiratory failure, mechanical ventilation. Very high risk mortality morbidity Full code Discussed with anesthesia, cardiology and cardiothoracic surgery attendings Addendum More details regarding patient condition and management in my note later today documented in this encounter Plan of Treatment Not on file documented as of this encounter Visit Diagnoses Not on filedocumented in this encounter
--- OUTSIDE RECORDS SUMMARY | 2025-01-05 12:56 | XMS_ITS | Encounter Summary ---
Author Organization [facility] [employer] [facility] Address [address] [place] [address] Care Team Providers Care Director Of Email Marketing Name Role Phone Unavailable Primary Care Provider Unavailabl e Encounter Details Date Type Department Care Team (Late st Contact Info) Description 11/15/2019 Transcribed Document [facility] Family Medicine [address] [place] [address] ProviderMacrina MD [address] [place] [address] Social History Tobacco Use Types Packs/Day Years Used Date Smoking Tobacco: Never Assessed Sex and Gender Information Value Date Recorded Sex Assigned at Not on file Legal Sex Male 1:13 PM CDT Gender Identity Not on file Sexual Orientation Not on file documented as of this encounter Miscellaneous Notes * Cerner Conversion Note - Macrina ProviderMD - 11/15/2019 7:25 AM CDT Pre Procedure Adult Entered On: 11/15/2019 7:34 EDT Performed On: 11/15/2019 7:25 EDT by ASHLEY STAFFORD RN Height and Weight, Clinical Dosing Height Source : Stated Height Entry Format : [place] Height, Feet : 5 ft(Converted to: 152 cm, 60 Inch) Height, Inches : 8 Inch(Converted to: 0 ft 8 Inch, 20.32 cm) Clinical Height : 172.72 cm Weight Source : Standing scale Weight Entry Format : Parke Clinical Dosing Weight : 64.09 kg Weight, Pounds : 141 lb Body Surface Area (BSA) : 1.76 m2 Body Mass Index : 21.5 kg/m2 [place] Body Weight : 67 kg ASHLEY STAFFORD RN - 11/15/2019 7:25 EDT Health Histories Smoking Status : Never (less than 100 in lifetime; none in last 30 days) Smokeless Tobacco Status : Never ASHLEY STAFFORD RN - 11/15/2019 7:25 EDT Social History (As Of: 11/15/2019 07:34:43 EDT) Tobacco: Never (less than 100 in lifetime) Smoking Status. (Last Updated: 11/15/2019 07:26:30 EDT by ASHLEY STAFFORD RN) Alcohol: Alcohol Use History No. (Last Updated: 11/15/2019 07:26:36 EDT by ASHLEY STAFFORD, SHYAM) Infectious Disease History COVID19 Screening : No Experiencing Infectious Disease Symptoms : No symptoms Physical contact outside [place] in the last 30 days : No Infectious Disease History : Mumps Tuberculosis Symptoms : None ASHLEY STAFFORD RN - 11/15/2019 7:25 EDT Anesthesia/Transfusion History Family History of Anesthesia Reaction : No prior transfusion(s) Transfusion History : Prior anesthesia without reaction Family History of Anesthesia Reaction : None ASHLEY STAFFORD RN - 11/15/2019 7:25 EDT Functional Assessment Living Situation : Home Patient Lives With : Spouse Current Home Treatments : None ASHLEY STAFFORD RN - 11/15/2019 7:25 EDT [place] Suicide Severity Rating Scale (C-SSRS) CSSRS Past Month Wish to be : No CSSRS Past Month Suicidal Thoughts : No CSSRS Lifetime Suicide Behavior : No Suicide Severity Rating Score : 0 Suicide Severity Rating : No Additional Care Required at this time ASHLEY STAFFORD RN - 11/15/2019 7:25 EDT Psychosocial History Currently in Unsafe Situation : No ASHLEY STAFFORD RN - 11/15/2019 7:25 EDT Advance Directive Patient has Advance Directive *Q : No, patient refuses Advance Directive information ASHLEY STAFFORD RN - 11/15/2019 7:25 EDT Teaching/Learning Assessment Barriers To Learning : None evident Individuals Taught : Patient Readiness to Learn : Cooperative Readiness to Learn : Explanation Learning Style Preferences Patient : Verbal explanation Learning Style Preferences Family : Verbal explanation ASHLEY STAFFORD RN - 11/15/2019 7:25 EDT Education Topics, Periop Preadmission Perioperative Education Grid Arrival Time/Place : Verbalizes understanding CAUTI : Verbalizes understanding Central Lines : Verbalizes understanding CHG Preoperative Bathing/Cloths : Verbalizes understanding Falls : Verbalizes understanding Incentive Spirometry : Verbalizes understanding Infection Control : Verbalizes understanding IV's : Verbalizes understanding NPO Status/Directions : Verbalizes understanding Pain Management : Verbalizes understanding Postoperative Care Preparations : Verbalizes understanding Preprocedure Preparations : Verbalizes understanding Preprocedure Tests/Labs : Verbalizes understanding Remove Body Piercings : Verbalizes understanding Responsible Adult : Verbalizes understanding SNE's : Verbalizes understanding Take/Hold Medications Pre-Procedure : Verbalizes understanding Other : Verbalizes understanding ASHLEY STAFFORD RN - 11/15/2019 7:25 EDT General Info Arrived From : Home Mode of Arrival on Unit : Ambulatory Patient Arrival Date/Time : 11/15/2019 7:15 EDT Want Family/Rep/Phys Notified of Admit : No Emergency Contact #1 : Evelia Box Emergency Contact #1 Phone Number : [phone] Emergency Contact #1 Relationship : Emergency Contact #2 : na Emergency Contact #2 Phone Number : na Emergency Contact #2 Relationship : na Chief Complaint : heart cath/BAV Information Obtained From : Patient Primary Language : Luxembourger Communication Barrier : None ASHLEY STAFFORD RN - 11/15/2019 7:25 EDT Vital Measurements Temperature Source : Temporal artery scanning Temperature Mode : Fahrenheit Temperature, Fahrenheit : 98.1 Deg F Clinical Temperature, C : 36.7 Deg C Peripheral Pulse Rate : 79 bpm Respiratory Rate : 16 Breaths/Min Systolic Blood Pressure : 159 mmHg (HI) Diastolic Blood Pressure : 80 mmHg Oxygen Saturation : 95 % ASHLEY STAFFORD RN - 11/15/2019 7:25 EDT Sleep Apnea Risk Assmt Hx of Obstructive Sleep Apnea Diagnosis : No Snore Loudly : No Tired, Fatigued, or Sleepy During Day : No Observed Stopping Breathing During Sleep : No Have/Are Being Treated for Hypertension : Yes BMI Greater Than 35 kg/m2 : No Age over 50 Years Old : Yes Neck Circumference Greater Than 40 cm : No Gender Male : Yes STOP-BANG Sleep Apnea Risk Level Score : 3 ASHLEY STAFFORD RN - 11/15/2019 7:25 EDT Jeferson Scale Jeferson Sensory Perception : No impairment Jeferson Moisture : Rarely moist Jeferson Activity : Walks occasionally Jeferson Mobility : No limitation Jeferson Nutrition : Adequate Jeferson Friction and Shear : No apparent problem Jeferson Score : 21 ASHLEY STAFFORD RN - 11/15/2019 7:25 EDT Pain Assessment Pain Assessment : Initial assessment Pain Scale Used : 0-10 Scale Pain Location Comment : back pain ASHLEY STAFFORD RN - 11/15/2019 7:25 EDT Fall Risk Scales ABCs Fall Injury Risk Identification : None ROMERO Hx Falls Immediate/Within 3 Months : No Romero Secondary Diagnosis : No ROMERO Use of Ambulatory Aid : None ROMERO IV Therapy or IV Access : Yes Romero Gait/Transferring : Normal, bedrest, immobile Romero Mental Status : Oriented to own ability Romero Fall Risk Score : 20 ROMERO Fall Scale Risk Level : 0-24 Low Risk [place] Fall Interventions : Adequate lighting, Assistive devices within reach, Bed in low position, Call device within reach, Fall prevention handout/education per facility policy, Frequent orientation to call device, Frequent orientation to surroundings, Hourly comfort/safety rounds, Non-slip footwear, Personal items within reach, Reinforced to call for assistance before getting out of bed, Room free of clutter/spills, Upper side-rails up, Wheels locked, Wires/Cords secured ASHLEY STAFFORD RN - 11/15/2019 7:25 EDT Valuables and Belongings Valuables and Belongings : Clothing, No comfort items, No jewelry, No personal devices, No personal items, No assistive devices, No respiratory devices, No medications Clothing : Common streetwear Clothing Disposition : Bedside ASHLEY STAFFORD RN - 11/15/2019 7:25 EDT Pain Scale Intensity : 5 ASHLEY STAFFORD RN - 11/15/2019 7:25 EDT Image 4 - Images currently included in the form version of this document have not been included in the text rendition version of the form. documented in this encounter Plan of Treatment Not on file documented as of this encounter Visit Diagnoses Not on filedocumented in this encounter
--- OUTSIDE RECORDS SUMMARY | 2025-01-05 12:56 | XMS_ITS | Encounter Summary ---
Author Organization [facility] Address [address] [place] [address] Care Team Providers Care Collections Manager Name Role Phone Unavailable Primary Care Provider Unavailabl e Encounter Details Date Type Department Care Team (Late st Contact Info) Description 01/14/2021 Transcribed Document [facility] [place] [address] [place] [address] ProviderMacrina MD [address] [place], [place] [address] Social History Tobacco Use Types Packs/Day Years Used Date Smoking Tobacco: Never Assessed Sex and Gender Information Value Date Recorded Sex Assigned at Not on file Legal Sex Male 1:13 PM CDT Gender Identity Not on file Sexual Orientation Not on file documented as of this encounter Miscellaneous Notes * Cerner Conversion Note - Historical ProviderMD - 01/14/2021 5:00 PM CDT Chart Check - Review Order Profile Entered On: 01/14/2021 15:03 EDT Performed On: 01/14/2021 17:00 EDT by Pavel Rizvi, Area Relief Pilot-Student Nurse Chart Check Powerplans Initiated/Discontinued as Appropriate : Not applicable All Active Orders Reviewed : Yes Pavel Rizvi, Area Relief Pilot-Student Nurse - 01/14/2021 15:03 EDT Electronically signed by [facility] Conversion Shuttle Preparation Supervisor Cerner at 11/10/2022 9:12 AM CDT documented in this encounter Plan of Treatment Not on file documented as of this encounter Visit Diagnoses Not on filedocumented in this encounter
--- OUTSIDE RECORDS SUMMARY | 2025-01-05 12:56 | XMS_ITS | Encounter Summary ---
Author Organization Healthcare Address [address] [id number] Care Team Providers Care Board Stacker Name Role Phone Robert Batista MD Primary Care Provider [phone] Encounter Details Date Type Department Care Team (Late Contact Info) Description 12/15/2022 Orders Only External Location [address] [place] [phone] Christiano Rm MD [address] [place] [address] Social History Tobacco Use Types Packs/Day Years Used Date Smoking Tobacco: Never Sex and Gender Information Value Date Recorded Sex Assigned at Male 03/09/2023 11:40 AM EDT Legal Sex Male 7:55 PM EDT Gender Identity Male 03/09/2023 11:40 AM EDT Sexual Orientation Straight 03/09/2023 11 :40 AM EDT documented as of this encounter Plan of Treatment Upcoming Encounters Date Type Department Care Team (Late Contact Info) Description 02/06/2025 9:25 AM EDT Appointment [facility] [address] [place] [phone] 02/06/2025 10:45 AM EDT Office Visit [facility] [address] [place] [phone] Darell Turcios MD [address] [facility] [address] [place] [address] 02/13/2025 12:50 PM EDT Consult MD Clinic Urology [address] [place] [address] Tari Christie PA [address] [place] [phone] documented as of this encounter Procedures Procedure Name Priority Date/Time Associated Diagnosis Comments CT PELVIS W AND WO IV CONTRAST 12/15/2022 1:14 PM EDT documented in this encounter Results * CT Pelvis w and wo IV Contrast (12/15/2022 1:14 PM EDT) Anatomical Region Laterality Modality Pelvis Computed Tomogra phy 12/15/2022 1:14 PM EDT Christiano Rm MD IMG CT PROCEDURES Final Resu lt documented in this encounter Visit Diagnoses Not on filedocumented in this encounter Care Teams Board Stacker Relationship Specialty Start Date End Date Robert Batista MD [address] [place] [address] [address] [place] [address] PCP - General 12/07/20 documented as of this encounter
--- OUTSIDE RECORDS SUMMARY | 2025-01-05 12:56 | XMS_ITS | Encounter Summary ---
Author Organization [email or web address] Address [address] [place] [address] Care Team Providers Care Copy Messenger Name Role Phone Unavailable Primary Care Provider Unavailabl e Encounter Details Date Type Department Care Team (Late st Contact Info) Description 01/08/2021 Transcribed Document [facility] Cardiology [address] [place] [address] Danyelle Gomez MD [address] [facility] [address] [place] [id number] Social History Tobacco Use Types Packs/Day Years Used Date Smoking Tobacco: Never Assessed Sex and Gender Information Value Date Recorded Sex Assigned at Not on file Legal Sex Male 1:13 PM CDT Gender Identity Not on file Sexual Orientation Not on file documented as of this encounter Miscellaneous Notes * Cerner Conversion Note - Danyelle Gomez MD - 01/08/2021 8:18 AM EDT Patient: JOSE ADORNO Age: 80 years Sex: Male : 1940 Associated Diagnoses: None Author: DANYELLE GOMEZ MD-CAR Basic Information PCP: Robert Batista MD Primary Clinical Quality Manager: Danyelle Gomez MD Subjective Resting in bed. Health Status Current medications: Home Medications (6) [...] = 1 Tab, Oral, BID , Medications (40) Active Scheduled: (17) #NaCl 0.9% *FLUSH* inj [...] 2 Gram 50 mL, IV Piggyback, 1-Time docusate sod 100 mg/10 mL liq 100 [...] Intake and Output 24 hour intake: Total 1,630 ml 24 hour output: Total 3,100 ml VS/Measurements Vitals Signs (last 24 hrs) Last Charted Minimum Maximum Apical HR H 111 (JAN 08 05:50) 99 (JAN 07 11:55) H 114 (JAN 07 17:30) Mon HR 113 (JAN 08 06:00) 96 (JAN 07 13:00) 116 (JAN 07 16:47) Resp Rate H 25 (JAN 08 06:00) 16 (JAN 07 08:29) H 44 (JAN 07 12:00) SBP 105 (JAN 08 06:00) 105 (JAN 08 06:00) H 178 (JAN 07 12:00) DBP L 56 (JAN 08:) L 56 (JAN 08 06:) H 123 (JAN 07 14:) MAP 72 (JAN 08 06:) 72 (JAN 08 06:) 132 (JAN 07:) SpO2 L 93 (JAN 08 06:) L 92 (JAN 07 12:00) 99 (JAN 07 08:29) General: Alert and oriented, No acute distress. [...] Appropriate mood & affect. Results Review JAN 08 05:45 139 102 H 31 / H 147 3.8 30 0.80 \ JAN 08 05:45 \ L 10.0 / H 16.3 H 410 / L 30.7 \ Cardiac Markers (Current Encounter/Past 24 Hours) ProBNP 5653 pg/mL ME 01/07/2021 05:56 Radiology Results (Last 48 hours) [id number] -- 12/27/2020 06:39 CR Chest 1 Vw Portable (01/07/2021 03:11) [...] s/p pericardiocentesis and surgical repair of LV [place]. PEA Arrest; CODE called 10 minutes to ROSC Mediastinal hemorrhage/Cardiac tamponade s/p emergent sternotomy; repair of left ventricular teat 12/27/2020 - Mechanical vent placed during surgery; extubated 01/05/21 acute blood loss anemia s/p Transfusions: 4 units of PRBCs, cryoprecipitate, platelets, and FFP Hypertension Nonischemic cardiomyopathy Neurologic changes; CVA CT - no acute changes. MRI - Multiple acute infarcts PLAN; 01/08/2021 Increased his beta blockers yesterday, however he has not received a full 24 hours worth of doses, therefore he still remains tachycardic, otherwise progressing well. Will continue same medications for now. Continue to follow. 01/07/2021 Doing well today. We will increase [...]
--- OUTSIDE RECORDS SUMMARY | 2025-01-05 12:56 | XMS_ITS | Encounter Summary ---
Author Organization [facility] Address [address] [place] [address] Care Team Providers Care Sewer Contractor Name Role Phone Unavailable Primary Care Provider Unavailabl e Encounter Details Date Type Department Care Team (Late st Contact Info) Description 01/08/2021 Transcribed Document [facility] [place] [address] [place] [address] ProviderMacrina MD [address] [place] [address] Social History Tobacco Use Types Packs/Day Years Used Date Smoking Tobacco: Never Assessed Sex and Gender Information Value Date Recorded Sex Assigned at Not on file Legal Sex Male 1:13 PM CDT Gender Identity Not on file Sexual Orientation Not on file documented as of this encounter Miscellaneous Notes * Cerner Conversion Note - Macrina ProviderMD - 01/08/2021 11:37 AM CDT Central Line Checklist Entered On: 01/08/2021 11:39 EDT Performed On: 01/08/2021 11:37 EDT by Summer Navas RN Central Line Checklist History and Physical on Chart : Yes Central Line Insertion Facility : [facility] Central Line Insertion Start Date/Time : 01/08/2021 11:13 EDT Central Catheter Type : Power injection PICC Central Line Lot Number : [id number] Central Line Vessel Cannulated : Brachial vein Central Line Laterality : Right Central Line Number of Lumens : 2 Central Line Insertion Site : Upper arm, right Central Line Insertion Reason : New indication PICC Line Exclusion Criteria : None CL Number of Insertion Attempts: : 1 Modified Seldinger Used : Yes Portable Ultrasound Device : Yes Central Line Clean Hands : Yes Site Preparation Procedure : Chlorhexidine (Chloraprep) if patient is 2 months or older Central IV Full Body Drape Used : Yes Proper Use of Sterile Apparel per Policy : Yes Procedure to be Performed : picc insertion Time Out Pause Time : 01/08/2021 11:10 EDT All Activity Suspended : Yes Team Verbally Confirms Information : Correct patient identity, Correct side and site are marked, Consent form is present and accurate, Agreement on the procedure to be done, Correct patient position, Confirm the skin prep has dried, Performed in location of procedure after prepped/draped CL Time Out Additional Attendees : SHYAM Haque, SHYAM Navas, SHYAM 1% Lidocaine Amt Used as Anesthetic : 2 mL Central IV Sterile Field Maintained : Yes Central IV Sterile Technique Maintained : Yes Central Line Secure with : Stabilization device Central Line Dressing Dated : Yes RN Notified to Withhold Until Confirmed : Yes Summer Navas RN - 01/08/2021 11:37 EDT Electronically signed by Olinda Payne Conversion Iron And Steel Work Supervisor Cerner at 11/10/2022 9:25 AM CDT documented in this encounter Plan of Treatment Not on file documented as of this encounter Visit Diagnoses Not on filedocumented in this encounter
--- OUTSIDE RECORDS SUMMARY | 2025-01-05 12:56 | XMS_ITS | Encounter Summary ---
Author Organization [facility] Address [address] [place] [address] Care Team Providers Care Pipe Line Walker Name Role Phone Unavailable Primary Care Provider Unavailabl e Encounter Details Date Type Department Care Team (Late st Contact Info) Description 01/14/2021 Transcribed Document [facility] [place] On license of [facility] [place] [address] ProviderMacrina MD [address], [place] [id number] Social History Tobacco Use Types Packs/Day Years Used Date Smoking Tobacco: Never Assessed Sex and Gender Information Value Date Recorded Sex Assigned at Not on file Legal Sex Male 1:13 PM CDT Gender Identity Not on file Sexual Orientation Not on file documented as of this encounter Miscellaneous Notes * Cerner Conversion Note - Macrina Cordova MD - 01/14/2021 5:28 PM CDT Patient: JOSE ADORNO Age: 80 years Sex: Male : 1940 Associated Diagnoses: Anxiety; Cardiac tamponade; HTN (hypertension); GERD (gastroesophageal reflux disease); Mediastinal Hemorrhage; HLD (hyperlipidemia); History of Colon cancer S/P Surgery; Critical aortic stenosis; Peripheral neuropathy Author: ANANDA MILLER PA Basic Information Mr. Jose Adorno is [...] 1012. 01/02/21: POD#6 Intubated and sedated on [id number]/hr and Precedex .6mcg/kg/min. He is also on [...] just can't do it a third night. 01/08/21: POD#12 The pt is resting comfortably and I did not arouse as he was complaining of not being able to sleep yesterday and I know he just worked with S.T. 01/09/21: POD#13 The pt was assisted to the chair by P.T. He is very weak but stood and was able to help with max two people assist. 01/10/21: POD#14 The pt is OOB in a chair, he remains weak but P.T. states he did better today compared to yesterday. The pt has a weak voice but getting stronger. 01/11/21: POD#15 The pt states he is thirsty this morning. His voice is weak but continues to get stronger. 01/12/2021: POD #16: Complains of insomnia 01/13/2021: Postop day #17: Resting comfortably. 01/14/2021: POD #18, tearful today with CM about wanting to go home to his disable child. Review of Systems Constitutional: Weakness. Health Status Allergies: Allergic Reactions (Selected) No Known Allergies Physical Examination VS/Measurements Vital Measurements 01/14/2021 10:12 EDT Systolic Blood Pressure 100 mmHg Diastolic Blood Pressure 59 mmHg LOW Heart Rate Monitored 87 bpm 01/14/2021 8:09 EDT Oxygen Therapy Mode Nasal cannula Oxygen Flow Rate 2 Liter/Min 01/14/2021 5:15 EDT Oxygen Saturation 96 % General: Alert and oriented, No acute distress. Respiratory: Respirations are non-labored. Breath sounds: Rhonchi present. Cardiovascular: Normal rate, 97 beats per minute, Regular rhythm, S1, S2, No edema. Integumentary: Warm, Dry. Neurologic: Alert. Psychiatric: Cooperative, Appropriate mood & affect. Review / Management Results review: JAN 14 03:26 L 133 L 101 H 36 / H 140 4.5 29 0.80 \ JAN 14 03:26 \ L 9.6 / H 11.3 H 460 / L 29.9 \ Blood Gases (Current Encounter/Past 24 Hours) [...] inpatient rehab when clinically ready for Discharge 01/08/21 POD#12 O2 93% RA Pt worked with S.T. again today but failed swallow eval. Slowly improving though Get OOB into a chair today 01/09/21 POD#13 O2 98% 2L/NC Pt worked well with P.T. today is in the chair TF 01/10/21 POD#14 O2 97% 2L/NC TF 50ml/hr Continue P.T. Transfer to [facility] Pt will need rehab when clinically ready 01/11/21 POD#15 O2 91% 2L/NC TF 50ml/hr Continue P.T. Awaiting transfer to [facility] 01/12/2021 POD #16 Continues tube feedings, tolerating Steady progress 01/13/2021 POD #17 ALINA Bebe Will need rehab placement 01/14/2021 POD #18 Patient still not cleared for PO [facility] has accepted the patient, but he needs a PEG. Will consult general surgery for PEG placement prior to transfer to [facility] Diagnosis Anxiety - Pre-Op Diagnosis, Medical. Cardiac [...] Medical. Peripheral neuropathy - Pre-Op Diagnosis, Medical. Electronically signed by Elmer [facility] Conversion Roughing Mill Operator Cerner at 11/10/2022 9:18 AM CDT documented in this encounter Plan of Treatment Not on file documented as of this encounter Visit Diagnoses Not on filedocumented in this encounter
--- OUTSIDE RECORDS SUMMARY | 2025-01-05 12:56 | XMS_ITS | Encounter Summary ---
Author Organization [facility] Address [address] [place] [address] Care Team Providers Care Senior Telecommunications Engineer Name Role Phone Unavailable Primary Care Provider Unavailabl e Encounter Details Date Type Department Care Team (Late st Contact Info) Description 01/18/2021 Transcribed Document [facility] [place] Pending [facility] [place] [address] ProviderMacrina MD [address] [id number] Social History Tobacco Use Types Packs/Day Years Used Date Smoking Tobacco: Never Assessed Sex and Gender Information Value Date Recorded Sex Assigned at Not on file Legal Sex Male 1:13 PM CDT Gender Identity Not on file Sexual Orientation Not on file documented as of this encounter Miscellaneous Notes * Cerner Conversion Note - Macrina Cordova MD - 01/18/2021 9:15 AM CDT Patient: JOSE ADORNO Age: 80 [...] 1012. 01/02/21: POD#6 Intubated and sedated on [id number]/hr and Precedex .6mcg/kg/min. He is also on [...] to go home to his disable child. 01/15/2021 POD #19 no new complaints 01/16/2021: POD #20 failed swallow this morning 01/17/2021: POD #21 going down for PEG today 201: POD #22, PEG yesterday, CHR today Review of Systems Constitutional: Weakness. Health Status Allergies: Allergic Reactions (Selected) No Known Allergies Physical Examination VS/Measurements Vital Measurements 01/18/2021 8:26 EDT Oxygen Saturation 96 % Oxygen Therapy Mode Room air 01/18/2021 5:30 EDT Systolic Blood Pressure 91 mmHg Diastolic Blood Pressure 53 mmHg LOW Heart Rate Monitored 84 bpm General: Alert and oriented, No acute distress. Respiratory: Lungs are clear to auscultation, Respirations are non-labored, Breath sounds are equal. Cardiovascular: Normal rate, 87 beats per minute, Regular rhythm, S1, S2, No edema. Gastrointestinal: PEG in place. Integumentary: Warm, Dry, sternal incision healing well. Neurologic: Alert, Oriented, No focal deficits. Psychiatric: Cooperative, Appropriate mood & affect. Review / Management Results review: JAN 18 03:43 L 132 L 99 H 46 / 84 4.8 29 1.00 \ JAN 18 03:43 \ L 10.7 / H 10.1 H 445 / L 34.6 \ Blood Gases (Current Encounter/Past 24 Hours) [...] 2L/NC TF 50ml/hr Continue P.T. Transfer to [facility] Pt will need rehab when clinically ready 01/11/21 POD#15 O2 91% 2L/NC TF 50ml/hr Continue P.T. Awaiting transfer to [facility] 01/12/2021 POD #16 Continues tube feedings, tolerating Steady progress 01/13/2021 POD #17 ALINA Spence Will need rehab placement 01/14/2021 POD #18 Patient still not cleared for PO [facility] has accepted the patient, but he needs a PEG. Will consult general surgery for PEG placement prior to transfer to [facility] 01/15/2021 POD #19 Planning to repeat swallow evaluation. Depending on results, may require PEG prior to transfer to [facility]. 01/16/2021: POD #20 Continue tube feedings PEG tomorrow per Dr. Rodriguez Spoke with , will contact [facility] tomorrow for bed availability once PEG is placed. 01/17/2021: POD #21 Failed swallow evaluation yesterday For PEG placement today. [facility] after PEG placement today if bed available. 01/18/21: POD #22 PEG yesterday [facility] today Follow up with Dr. Solorzano two weeks Diagnosis Anxiety - Pre-Op Diagnosis, Medical. Cardiac [...] Pre-Op Diagnosis, Medical. Electronically signed by Elmer [facility] Conversion Breed To Wean Production Technician Cerner at 11/10/2022 9:21 AM CDT documented in this encounter Plan of Treatment Not on file documented as of this encounter Visit Diagnoses Not on filedocumented in this encounter
--- OUTSIDE RECORDS SUMMARY | 2025-01-05 12:56 | XMS_ITS | Encounter Summary ---
Author Organization [facility] [facility] [facility] Address [address] [place] [address] Care Team Providers Care Podiatric Assistant Name Role Phone Unavailable Primary Care Provider Unavailabl e Encounter Details Date Type Department Care Team (Late st Contact Info) Description 01/08/2021 Transcribed Document [facility] [place] [address] [place] [address] ProviderMacrina MD [address] [place] [address] Social History Tobacco Use Types Packs/Day Years Used Date Smoking Tobacco: Never Assessed Sex and Gender Information Value Date Recorded Sex Assigned at Not on file Legal Sex Male 1:13 PM CDT Gender Identity Not on file Sexual Orientation Not on file documented as of this encounter Miscellaneous Notes * Cerner Conversion Note - Macrina ProviderMD - 01/08/2021 2:55 PM CDT On Going Discharge Planning Entered On: 01/08/2021 14:56 EDT Performed On: 01/08/2021 14:55 EDT by SOPHY RM Rn-Digital Marketing StrategistEnvironmental Educator Progress Note Discharge Arrangements : Patient Post-Acute [...] Discharge Unresolved : Clinical Condition of Patient Is the Patient Meeting Medical Necessity : Yes SOPHY RM Rn-Digital Marketing Strategist - 01/08/2021 14:55 EDT Narrative Progress Note Narrative Progress Note : HD#12; ELOS 3; LRR; BOOST 6; POD #12 - Electiv TAVR/LVentTear/Cardiac Tamponade/Embolic Strokes w/ R side weakness; RA; IS/FVD encouraged; report pt with delerium/lethargy overnight - pulled out IV; PICC ordered today; R arm weakness; Corpak/TF - failed ST evaluation - improving; DCP Rehab; continue to follow SOPHY RM Rn-Digital Marketing Strategist - 01/08/2021 14:56 EDT Historical Progress Note : HD#11; ELOS 3; MRR; BOOST 6; POD#11 - Elective TAVR/LVentTear/Cardiac Tamponade; 02=2L; Maxipime/Ancef; IV Bumex; working w/therapy and stood at side of bed; SOPHY RM Rn-Digital Marketing Strategist - 01/07/21 14:34:53 HD#11; ELOS 3; MRR; BOOST 6; POD#11 - Elective TAVR/LVentTear/Cardiac Tamponade; 02=2L; Maxipime/Ancef; IV Bumex; working w/therapy and stood at side of bed; ST - ongoing rec for NPO r/t dysphagia - tx; instrumental 3-4 days; Corpak/TF; DCP anticipate rehab; [facility] and list w/post acute star ratings provided to pt for choicing. SOPHY RM Rn-Digital Marketing Strategist - 01/07/21 14:36:37 HD#8; ELOS 3; LRR; BOOST 6; POD#8 - Elec TAVR/LVentTear/Cardiac Tamponade - intubated fi02 100; awake/calm/following commands; bronchoscopy scheduled today; SBT; T=101.2; MRI - diffuse scattered bilateral infarcts; Dr. Navarro states during MDR that if pt is unable to successfully wean over weekend will need trach/peg consult on Thursday; continue to follow; will need therapy evaluations when extubated. SOPHY RM Rn-Digital Marketing Strategist - 01/04/21 15:16:12 HD#7; ELOS 3; LRR; BOOST 6; POD#7 - Elective TAVR/LVentTear/CardiacTamponade/Arrest - intubated fi02 40/peep 8; SBT x 2 hr; Fent/Precedex gtt; Corpak/TF; Humza CT in place; Neurology following - MRI diffuse scattered bilateral infarcts; pt w/improvement in movement of R side; PT/OT evaluations when extubated; DCP TBD - likely rehab. SOPHY RM Rn-Digital Marketing Strategist - 01/03/21 15:03:09 HD#6; ELOS 3; LRR; BOOST 6; POD #6 - Electiv TAVR/L Vent Tear/Cardiac Tamponode/Arrest - reintubated 01/01; fi02 40; Levo/Fent/Precedex gtt; wean sedation - on SBT 2hr TID; T=99.9; Dr. Navarro states during MDR that pt's spouse aware may need trach/peg; DCP TBD pending progress. SOPHY RM Rn-Digital Marketing Strategist - 01/02/21 14:55:12 HD#5; ELOS 3; LRR; BOOST 6; POD #5 - Elective TAVR/L Ventrial Tear/Cardiac Tamponode; extubated on 12/31 required reintubation today fi02 60/peep 8; Precedex/Fent gtt; Corpak/TF; IV Zosyn; CT draining; T=100; DCP TBD pending progress; will need therapy evals when appropriate. SOPHY RM Rn-Digital Marketing Strategist - 01/01/21 14:47:57 HD#4; ELOS 3; LRR; POD#4 - Electiv TAVR; L Ventrical Tear; intubated fi02 50; Cardene gtt; Corpak to be placed and TF initiated; SBT today; following commands; Head MRI ordered; possible extubation post MRI; no movement noted on R side; will need PT/OT evaluations when extubated; DCP pending progress - likely rehab. SOHPY RM Rn-Digital Marketing Strategist - 12/31/20 14:58:43 DCP TBD - pending progress; OP Cardiac Rehab referral placed thru [facility]. SOPHY RM Rn-Digital Marketing Strategist - 12/28/20 12:42:03 SOPHY RM Rn-Digital Marketing Strategist - 01/08/2021 14:55 EDT documented in this encounter Plan of Treatment Not on file documented as of this encounter Visit Diagnoses Not on filedocumented in this encounter
--- OUTSIDE RECORDS SUMMARY | 2025-01-05 12:56 | XMS_ITS | Encounter Summary ---
Author Organization [facility] Address [address] [place] [address] Care Team Providers Care Processing Supervisor Name Role Phone Unavailable Primary Care Provider Unavailabl e Encounter Details Date Type Department Care Team (Late st Contact Info) Description 01/18/2021 Transcribed Document [facility] [place] [address] [place] [address] ProviderMacrina MD [address] [place], [place] [phone] Social History Tobacco Use Types Packs/Day Years Used Date Smoking Tobacco: Never Assessed Sex and Gender Information Value Date Recorded Sex Assigned at Not on file Legal Sex Male 1:13 PM CDT Gender Identity Not on file Sexual Orientation Not on file documented as of this encounter Miscellaneous Notes * Cerner Conversion Note - Historical ProviderMD - 01/18/2021 4:26 PM CDT TOTAL Crystalloid for the procedure: 800ml Electronically signed by Sekou Payne Conversion Landscape Architecture Professor Guanaco at 11/10/2022 9:19 AM CDT documented in this encounter Plan of Treatment Not on file documented as of this encounter Visit Diagnoses Not on filedocumented in this encounter
--- OUTSIDE RECORDS SUMMARY | 2025-01-05 12:56 | XMS_ITS | Encounter Summary ---
Author Organization [facility] Address [address] [place] [id number] Care Team Providers Care Window Decorator Name Role Phone Unavailable Primary Care Provider Unavailabl e Encounter Details Date Type Department Care Team (Late st Contact Info) Description 01/14/2021 Transcribed Document [facility] [place] Family Medicine [facility] [place] [address] ProviderMacrina MD [address] [place] [address] Social History Tobacco Use Types Packs/Day Years Used Date Smoking Tobacco: Never Assessed Sex and Gender Information Value Date Recorded Sex Assigned at Not on file Legal Sex Male 1:13 PM CDT Gender Identity Not on file Sexual Orientation Not on file documented as of this encounter Miscellaneous Notes * Cerner Conversion Note - Macrina Cordova MD - 01/14/2021 9:45 AM CDT Patient: JOSE ADORNO Age: 80 [...] 0.5 MCG/KG/. 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 MRI brain yesterday revealed [...] 180s. 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; coil shaper and moves extremities bilaterally but weaker on right. 01/07 Pt seen and examined earlier today. Reports he did not sleep well secondary to NIPPV. Currently on 2L NC CXR with RLL infiltrate possible effusion and pt with cxs with serration and klebsiella, currently on Maxipime. TM 99.9. Has had issues with HTN, medications being adjusted. 01/08: Seen and examined on room air. Complains of incisional chest pain. Alert and follows commands. Hemodynamically stable. Tmax 100.2, increasing leukocytosis. Creatinine 0.80, 3.1L UOP, -1.4L balance past 24 hrs. Tolerating tube feeding at 50mL/hr. Per RN, patient is not sleeping and having increased confusion at night. 01/09 Pt on 2L NC, reports he feels like today is the first day he is actually going to live. He is awake and watching TV, got oob into chair today. He has intermit tachycardia, overnight had hypotension therefore medications being adjusted, pt has required low dose patricio. Pt is + 1.2L/24 hours. TM 100.2. 01/10 Pt without new overnight events reported, worked with PT earlier today and is oob in chair. Remains on 2L NC Was evaluated with speech this AM as well , not yet ready for PO. Remains on TF Still with intermit nocturnal marginal hypotension, continuing to adjust medication. 01/11: Sitting up in the chair, Alert and will nod head to question. Oriented to person. Follows all commands. On 2L NC, 96%. Hemodynamically stable. No vasopressors. RN reports runs of V-Tach overnight. Cr 0.70, good UOP, -133 balance. WBC 13.5, low grade fever 99.3 6: Patient was seen and examined today laying comfortably in bed no overnight issues, no complaints. Vitals reviewed satting well on 2 L, no fever. Labs and images reviewed sodium 133 potassium 4.5, white cell count trending down 11.3. Chest x-ray reviewed stable. Vent day: 5, extubated 12/31/20 Reintubated 01/01/21, extubated 01/05 PICC Intake & Output Totals Last 24 Hours (7a-7a) Intake (30 Events) Medications (322.33 mL) Enteral Feeding Amount (600 mL) Output (3 Events) Spence Catheter (2050 mL) Input Total: 922.33 mL Output Total: 2050 mL Balance: -1127.67 mL Review of Systems Constitutional: Weakness, Fatigue. Eye: No visual disturbances. Ear/Nose/Mouth/Throat: Negative. Respiratory: No shortness of breath, No cough, No sputum production. Cardiovascular: denies chest pain. Gastrointestinal: No nausea, No vomiting. Genitourinary: No dysuria. Musculoskeletal: generalized discomfort. Integumentary: No rash. Neurologic: Alert and oriented X4. Psychiatric: Anxiety. Unable to obtain: Follows commands denies abdominal pain denies chest pain. Health Status Allergies: Allergic Reactions (Selected) No Known Allergies, No qualifying data available Current medications: (Selected) Inpatient Medications Ordered Dextrose: 25 Gram, IV Push, 1-Time, PRN: Hypoglycemia Dulcolax Laxative: 10 mg, Rectal, Daily, PRN: Constipation DuoNeb 0.5 mg-2.5 mg/3 mL inhalation solution: 3 mL, Nebulized Inhalation, RT_Q4H, PRN: Shortness of Breath DuoNeb 0.5 mg-2.5 mg/3 mL inhalation solution: 3 mL, Nebulized Inhalation, RT_Q6H Lexapro: 10 mg, Oral, Daily Lopressor: 50 mg, Oral, BID Lovenox: 40 mg, SubCutaneous, Daily Magic Mouthwash: 5 mL, Oral, AC and at Bedtime Maxipime + Sodium Chloride 0.9% intravenous solution 50 mL: 1,000 mg, 100 mL/Hr, IV Piggyback, Q6HInt Milk of Magnesia 8% oral suspension: 30 mL, Oral, Daily, PRN: Constipation MiraLax: 17 Gram, Oral, Daily, PRN: Constipation Mucinex: 200 mg, Oral, Q6H Nitrostat: 0.4 mg, SubLINgual, Q5Min, PRN: Chest Pain Normal Saline Flush: 10 mL, IV Push, Q12H Normal Saline Flush: 10 mL, IV Push, Q8H Normal Saline Flush: 10 mL, IV Push, See Comment, PRN: IV Use Normal Saline Flush: 10 mL, IV Push, See Comment, PRN: Other (See Comment) Pepcid: 20 mg, Oral, Daily Tylenol: 650 mg, Oral, Q4H, PRN: Temperature Zofran: 4 mg, IV Push, Q4H, PRN: Nausea acetaminophen-HYDROcodone 325 mg-5 mg oral tablet: 2 Tab, Oral, Q4H, PRN: Pain (Moderate 4-6) albumin human 5% intravenous solution: 12.5 Gram, 250 mL, IntraVENous, Daily, PRN: Other (See Comment) aspirin: 81 mg, Oral, Daily atorvastatin: 40 mg, Oral, At Bedtime bumetanide: 0.5 mg, IV Push, BID clopidogrel: 75 mg, Oral, Daily docusate sodium: 100 mg, Oral, BID, PRN: Constipation gabapentin: 300 mg, Oral, Daily gabapentin: 600 mg, Oral, At Bedtime hydrALAZINE: 10 mg, IV Push, Q6H, PRN: Hypertension insulin regular 50 kg - 75 k kg - 75 kg scale, SubCutaneous, Q6H lisinopril: 5 mg, Oral, BID melatonin: 3 mg, Oral, At Bedtime oxyCODONE: 5 mg, Oral, Q6H, PRN: Pain (Moderate 4-6) potassium chloride 10 mEq/50 mL intravenous solution: 10 mEq, 50 mL, 50 mL/Hr, IV Piggyback, Q1H, PRN: Other (See Comment) senna: 8.8 mg, Oral, BID, PRN: Constipation sodium bicarbonate: 100 mEq, IV Push, 1-Time, [...] Oral, BID, 60 Tab, 0 Refill(s), Medications (38) Active Scheduled: (19) #NaCl 0.9% *FLUSH* inj 10 mL 10 mL, IV Push, Q12H #NaCl 0.9% *FLUSH* inj 10 mL 10 mL, IV Push, Q8H albuterol-ipratropium inh 3 mL 3 mL, Nebulized Inhalation, RT_Q6H aspirin 81 mg chew tab 81 mg 1 Tab, Oral, Daily atorvastatin 40 mg tab 40 mg 1 Tab, Oral, At Bedtime bumetanide 1 mg/4 mL inj 0.5 mg 2 mL, IV Push, BID cefEPIME + NaCl 0.9% 50 mL 1,000 mg, IV Piggyback, Q6HInt clopidogrel 75 mg tab 75 mg 1 Tab, Oral, Daily enoxaparin 40 mg/0.4 mL inj 40 mg 0.4 mL, SubCutaneous, Daily escitalopram 10 mg tab 10 mg 1 Tab, Oral, Daily famotidine 20 mg tab 20 mg 1 Tab, Oral, Daily gabapentin 300 mg cap 300 mg 1 Cap, Oral, Daily gabapentin 600 mg tab 600 mg 1 Tab, Oral, At Bedtime guaiFENesin 200 mg/10 mL liq 200 mg 10 mL, Oral, Q6H insulin regular 1 unit/0.01 mL inj 3mL 50 kg - 75 kg scale, SubCutaneous, Q6H lisinopril 5 mg tab 5 mg 1 Tab, Oral, BID Magic Mouthwash 5 mL, Oral, AC and at Bedtime melatonin 3 mg tab 3 mg 1 Tab, Oral, At Bedtime metoprolol tartrate 50 mg tab 50 mg 1 Tab, Oral, BID Continuous: (0) PRN: (19) #NaCl 0.9% *FLUSH* inj 10 mL 10 mL, IV Push, See Comment #NaCl 0.9% *FLUSH* inj 10 mL 10 [...] 25 Gram 50 mL, IV Push, 1-Time docusate sod 100 mg/10 mL liq 100 mg 10 mL, Oral, BID hydrALAZINE 20 mg/1 mL inj 10 mg 0.5 mL, IV Push, Q6H magnesium hydroxide 8% liq 30 mL 30 mL, Oral, Daily nitroglycerin 0.4 mg tab # 25 btl 0.4 mg 1 Tab, SubLINgual, Q5Min ondansetron 4 mg/2 mL inj 4 mg 2 mL, IV Push, Q4H oxyCODONE 5 mg tab 5 mg 1 Tab, Oral, Q6H polyethylene glycol 3350 pwd 17 g pkt 17 Gram 1 Packet, Oral, Daily potassium chloride 10 mEq 50 mL, IV Piggyback, Q1H senna 8.8 mg/5 mL liq 15 mL 8.8 mg 5 mL, Oral, BID sodium bicarbonate 50 mEq/50 ml inj syr 50 mEq 50 mL, IV Push, 1-Time sodium bicarbonate 50 mEq/50 ml inj syr 100 mEq 100 mL, IV Push, 1-Time Problem list: Medical At risk for sleep apnea / IMO [id number] / Confirmed Colorectal surgery / SNOMED CT 4393084396 / Confirmed Aortic valve stenosis / SNOMED CT 654484693 / Confirmed HTN - Hypertension / SNOMED CT 1873327351 / Confirmed At risk for violence / IMO [id number] / Confirmed, Active Problems (14) Aortic stenosis, severe Aortic valve stenosis Arthritis of right knee At risk for sleep apnea At risk for violence Back pain, chronic Chronic anxiety Colorectal surgery Disorder of prostate GERD - Gastro-esophageal reflux disease H/O peripheral neuropathy HTN - Hypertension Hyperlipidemia Hypertension Physical Examination VS/Measurements Vitals Signs (last 24 hrs) Last Charted Minimum Maximum Temp 98.5 (JAN 14 05:15) 97.9 (JAN 13 16:00) 98.5 (JAN 13 10:30) Apical HR 97 (JAN 14 08:49) 97 (JAN 14 08:49) H 102 (JAN 13 10:03) Mon HR 92 (JAN 14 05:44) 84 (JAN 13 10:36) 100 (JAN 14 05:15) Resp Rate 18 (JAN 13 16:03) 16 (DEC 20 10:36) 18 (DEC 20 16:00) SBP 123 (JAN 14 08:49) 107 (DEC 20 14:31) 123 (JAN 14 08:49) DBP 72 (JAN 14 08:49) 69 (DEC 20 16:00) 79 (CESAR 20 10:30) MAP 90 (JAN 14 05:15) 81 (JAN 13 16:00) 91 (JAN 13 10:30) SpO2 96 (JAN 14 05:15) 94 (JAN 13 16:03) 99 (JAN 13 14:31) Intake & Output Totals Last 24 Hours (7a-7a) Intake (30 Events) Medications (322.33 mL) Enteral Feeding Amount (600 mL) Output (3 Events) Spence Catheter (2050 mL) Input Total: 922.33 mL Output Total: 2050 mL Balance: -1127.67 mL General: Alert and oriented, No acute distress, frail, elderly , Alert and following commands. Very weak with right sided deficit.. Eye: Pupils are equal, round and reactive to light, Normal conjunctiva. HENT: Normocephalic. Mouth: Oral mucosa ( Dry ). Neck: Supple, No lymphadenopathy. Respiratory: Breath sounds are equal, Bilateral rhonchi, diminished bases, weak cough effort. Cardiovascular: Normal rate, Regular rhythm, No edema. Gastrointestinal: Soft, Non-tender, Non-distended, hypoactive throughout. Genitourinary: Support: Urinary catheter ( Indwelling ). Musculoskeletal: No swelling, No deformity. Integumentary: Warm, Dry. Integumentary exam: Pale. Neurologic: Alert, Oriented, weaker on R side, R facial droop. Psychiatric: Cooperative, Appropriate mood & affect. Review / Management Results review: Labs (Last four charted values) WBC H 11.3 (JAN 14) H 11.9 (DEC 20) H 11.8 (DEC 19) H 13.5 (DEC 18) HB L 9.6 (JAN 14) L 9.5 (CESAR 20) L 9.6 (CESAR 19) L 8.9 (CESAR 18) HCT L 29.9 (DEC 21) L 29.4 (CESAR 20) L 29.6 (CESAR 19) L 28.3 (CESAR 18) Plt H 460 (DEC 21) H 490 (CESAR 20) H 472 (CESAR 19) H 415 (CESAR 18) Na L 133 (CESAR 21) L 135 (CESAR 20) 138 (CESAR 19) 139 (CESAR 18) K 4.5 (CESAR 21) 4.4 (CESAR 20) 4.4 (CESAR 19) 4.5 (CESAR 18) Cl L 101 (DEC 21) L 101 (CESAR 20) 104 (CESAR 19) 107 (CESAR 18) CO2 29 (CESAR 21) 30 (CESAR 20) 29 (CESAR 19) 29 (CESAR 18) BUN H 36 (CESAR 21) H 33 (CESAR 20) H 33 (CESAR 19) H 33 (CESAR 18) Cr 0.80 (CESAR 21) 0.80 (CESAR 20) 0.70 (CESAR 19) 0.70 (CESAR 18) Glu R H 140 (CESAR 21) H 142 (CESAR 20) H 133 (CESAR 19) H 145 (CESAR 18) Ca 8.5 (CESAR 21) 8.5 (CESAR 20) 8.7 (CESAR 19) 8.4 (CESAR 18) Lactic 1.3 (CESAR 15) 1.0 (CESAR 13) 1.2 (CESAR 07) 1.4 (CESAR 06) PT 11.4 (CESAR 04) H 17.4 (CESAR 03) H 14.3 (CESAR 03) H 18.7 (CESAR 03) INR 1.1 (CESAR 04) H 1.7 (CESAR 03) H 1.4 (CESAR 03) H 1.8 (CESAR 03) PTT 27.8 (CESAR 05) H 62.4 (CESAR 03) H 37.3 (CESAR 03) H 55.9 (CESAR 03) AST H 53 (CESAR 19) H 49 (CESAR 18) H 45 (CESAR 17) H 49 (CESAR 16) ALT 61 (CESAR 19) 54 (CESAR 18) 49 (CESAR 17) 47 (CESAR 16) ALK P H 140 (CESAR 19) 124 (CESAR 18) 119 (CESAR 17) 109 (CESAR 16) T Bili 1.0 (CESAR 19) 1.0 (CESAR 18) H 1.3 (CESAR 17) 1.2 (CESAR 16) PTN 7.0 (CESAR 19) 6.7 (CESAR 18) 6.5 (CESAR 17) L 6.2 (CESAR 16) ALB L 2.6 (CESAR 19) L 2.6 (CESAR 18) L 2.5 (CESAR 17) L 2.4 (CESAR 16) Troponin <0.015 (CESAR 01) . Blood Gases (Current Encounter/Past 24 Hours) No Blood Gas Results Found (Past 24 Hours) CESAR 21 03:26 L 133 L 101 H 36 / H 140 4.5 29 0.80 \ CESAR 03:26 \ L 9.6 / H 11.3 H 460 / L 29.9 \ Blood Gases (Current Encounter/Past 24 Hours) No Blood Gas Results Found (Past 24 Hours) Radiology Results (Last 48 hours) [id number] -- 12/27/2020 06:39 CR Chest 1 Vw Portable (01/13/2021 06:44) Result: PORTABLE CHEST 01/13/2021 4:00 AM HISTORY: Pleural effusion.COMPARISON: Previous day .FINDINGS: The heart is stable in size. The lung dykes demonstrate nosignificant change in the right perihilar opacity. There is nopneumothorax . The support devices are in good position . Status postmedian sternotomy.IMPRESSION: There has been no significant interval change in the rightperihilar opacity. Continued follow-up recommended .Images reviewed, interpreted, and dictated by Dr. Brayan Pratt.Transcribed by Alyse Cabrera PA-C.I have personally viewed, interpreted and dictated the examination. Ihmeño read and agree with the above final transcribed report. CR Chest 1 Vw Portable (01/14/2021 05:54) Result: PORTABLE CHEST 01/14/2021 4:00 AM HISTORY: Shortness of breath.COMPARISON: Previous day .FINDINGS: The heart is stable in size. The lung dykes demonstrate nosignificant change . There is no pneumothorax. The support devices arein good position. IMPRESSION: There has been no significant interval change . Images reviewed, interpreted, and dictated by Dr. 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 Thrombocytopenia - improving, s/p transfusion on 12/30 Leukocytosis ongoing but continues to slightly improve Renal Metabolic acidosis due to lactic acid ; improved Electrolyte disturbances Hypernatremia - resolved ID Leukocytosis - improving COVID-19 negative Pneumonia panel + Klebsiella aerogenes + serratia as well Endocrine Glycemic control Neuro 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 Still overall weak and fragile. -Recommend PT/OT and getting patient to walk. -Extubated on 01/05/21 -BIPAP PRN for increased WOB and HS -Supplemental O2 to maintain O2 saturations 92-96% currently on 2L NC -Duonebs Q6H -Mucinex 200mg Q6H -Encourage IS and FVD and activity -Cardiology following -Lisinopril 5mg BID started, Metioprolol 50mg BID, Hydralazine prn -Monitor need for continued diuresis- today, continue Bumex 0.5mg BID. Tolerating well -CTS following -Neurology following -Antibiotics: -Cefepime--continue for 10 days -Zosyn for total of 10 days, Klebsiella PNA, stopped Zosyn and switched to Cefepime, continue -TF per dietary at rate of 50ml/ hr, speech following -Prophylaxis: Protonix, SCDs -Anticoagulation per CTS- as discussed in multidisciplinary rounds ok'd per CTS and lovenox was started on 01/10. Bowel Regimen; senna, colace -CXR and labs in AM -Continue activity and pulmonary toilet, both encouraged. -PT/OT following -Pt continues to improve, wbc trending down. cxr stable, on 2L oxygen. We will continue to monitor from pulmonary standpoint showed improvement with daily clinical evaluation, labs and images as needed. -Patient would benefit from inpatient rehab. Recommend transfer to [facility] for inpatient rehab. FULL CODE Prognosis - Guarded. I have [...]
--- OUTSIDE RECORDS SUMMARY | 2025-01-05 12:56 | XMS_ITS | Encounter Summary ---
Author Organization [facility] Address [address] [place] [address] Care Team Providers Care Loin Trimmer Name Role Phone Unavailable Primary Care Provider Unavailabl e Encounter Details Date Type Department Care Team (Late st Contact Info) Description 01/08/2021 Transcribed Document [facility] [place] [address] [place] [address] ProviderMacrina MD [address] [place] [address] Social History Tobacco Use Types Packs/Day Years Used Date Smoking Tobacco: Never Assessed Sex and Gender Information Value Date Recorded Sex Assigned at Not on file Legal Sex Male 1:13 PM CDT Gender Identity Not on file Sexual Orientation Not on file documented as of this encounter Miscellaneous Notes * Cerner Conversion Note - Historical ProviderMD - 01/08/2021 3:00 AM CDT Nutrition Assessment Entered On: 01/08/2021 10:08 EDT Performed On: 01/08/2021 11:42 EDT by Tamy Wolff Dietitian Nutrition Assessment Current Nutrition Regimen Comment : 01/08: high f/up. Per THERAPEUTIC STRATEGY LEAD notes, pt not ready for instrumental. TF running @ 50ml/hr with proteinex and tolerating well per RN. Now having BM's on bowel regimen. 01/04: high f/up. Pt remains intubated and sedated. TF running @ goal (50ml/hr) and tolerating. Plans for bronch today. Pt has not had +BM since 12/31-bowel regimen is being adjusted. 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, cardiogenic shock, acute blood loss anemia, metabolic acidosis PMH: severe , nonischemic cardiomyopathy, HTN, colon resection, inguinal hernia repair, herman Labs: Glu 147, BUN 31, Alb 2.7, TBil 1.4, AST 40, FSBG 135/97/105, WBC 16.3 Meds: statin, docusate, SSI, lactobacillus, abx, PPI, miralax, senna GI: LBM 01/08-diarrhea, +BS, +corpak (2nd portion of duodenum) Skin: chest incisions; UE/LE edema Diet: NPO TF: Osmolite 1.5 @ 50ml/hr + 1 proteinex Ht: 68 Wt: 65.14kg/143# (admit), 77.3kg (12/28), 74.2kg (01/01), no new wt (01/04), 73.1kg (01/06) Wt hx: 141# (11/15/19), 146# (12/03/20) BMI: 22 IBW: 70kg (93% IBW) Est needs: 1600-1800kcal (25-28kcal/kg) 78g PRO (1.2g/kg) Tamy Wolff Dietitian - 01/08/2021 11:40 EDT Nutrition Assessment Reason : Follow Up Tamy Wolff Dietitian - 01/08/2021 10:08 EDT Nutrition Diagnoses Oral or Nutrition Support Intake : Inadequate oral intake Oral or Nutr Support Intake Related To : dysphagia Oral or Nutr Support Intake Evidenced by : NPO; need for EN Oral or Nutrition Support Intake Status : Active Tamy Wolff Dietitian - 01/08/2021 11:40 EDT Nutrition Interventions Enteral/Parenteral Nutrition : Continue current enteral nutrition regimen Tamy Wolff Dietitian - 01/08/2021 11:40 EDT Monitoring/Evaluation Enteral Nutrition Intake : Formula/Solution, Feeding tube flush, Tube Feeding Tolerance Weight Status : Weight Maintanence Gastrointestinal Function : Bowel Function Tamy Wolff Dietitian - 01/08/2021 11:40 EDT Nutrition Recommendations Dietitian Recommendations : 1. Continue Osmolite 1.5 @ 50ml/hr + 1 [id number] daily (provides 1710kcal, 83g PRO). If pt cont having diarrhea, will adjust to Vital 1.5 with goal rate at 50ml/hr (provides 1650kcal, 74g PRO). FW per MD. Goal: meet est needs 2. Monitor elytes and replace prn Goal: wnls 3. Obtain wt 2x weekly goal: avoid sig wt changes 4. Monitor bowel fxn. Consider making bowel regimen prn if diarrhea persists. goal: normal BMs Risk: High Nutrition Care Level : High Tamy Wolff Dietitian - 01/08/2021 11:40 EDT Electronically signed by [facility] Conversion Collections [employer] Director Cerner at 11/10/2022 9:07 AM CDT documented in this encounter Plan of Treatment Not on file documented as of this encounter Visit Diagnoses Not on filedocumented in this encounter
--- OUTSIDE RECORDS SUMMARY | 2025-01-05 12:56 | XMS_ITS | Encounter Summary ---
Author Organization [facility] Address [address] [place] [id number] Care Team Providers Care Wash Tank Tender Name Role Phone Unavailable Primary Care Provider Unavailabl e Encounter Details Date Type Department Care Team (Late st Contact Info) Description 01/18/2021 Transcribed Document [facility] [place] Family Medicine [address] [place] [address] ProviderMacrina MD [address] [place] [address] Social History Tobacco Use Types Packs/Day Years Used Date Smoking Tobacco: Never Assessed Sex and Gender Information Value Date Recorded Sex Assigned at Not on file Legal Sex Male 1:13 PM CDT Gender Identity Not on file Sexual Orientation Not on file documented as of this encounter Miscellaneous Notes * Cerner Conversion Note - Macrina ProviderMD - 01/18/2021 4:07 PM CDT Nursing Discharge Summary Entered On: 01/18/2021 16:08 EDT Performed On: 01/18/2021 16:07 EDT by Misty Schmitt Lpn Discharge Documentation Discharge Date/Time : 01/18/2021 16:15 EDT Patient Disposition, General : Discharge Discharge To : Rehabilitation unit/facility Name of Receiving Facility/Provider : [facility] Mode Of Departure, General Discharge : Other: van Accompanied By, Discharge : Spouse IV Discontinued : No IV Therapy Comment : PICC in upper Right arm Personal Belongings With Patient : Yes Pt's Own Supply of Medications Returned : No patient supply of medications to return Prescriptions Given to Patient : No Medications Given to Patient : No Discharge Instructions Reviewed With, Opportunity For Questions Given : Patient, Spouse Patient Education Completed : Yes Teaching Method : Explanation, Printed materials Teaching Evaluation : Verbalizes understanding Education Comment : daily stroke rounding Misty Schmitt Lpn - 01/18/2021 16:07 EDT documented in this encounter Plan of Treatment Not on file documented as of this encounter Visit Diagnoses Not on filedocumented in this encounter
--- OUTSIDE RECORDS SUMMARY | 2025-01-05 12:56 | XMS_ITS | Encounter Summary ---
Author Organization [facility] Address [address] [place] [id number] Care Team Providers Care Mission Manager Name Role Phone Unavailable Primary Care Provider Unavailabl e Encounter Details Date Type Department Care Team (Late st Contact Info) Description 01/18/2021 Transcribed Document [facility] [place] Family Medicine [address] [place] [address] ProviderMacrina MD [address] [place] [address] Social History Tobacco Use Types Packs/Day Years Used Date Smoking Tobacco: Never Assessed Sex and Gender Information Value Date Recorded Sex Assigned at Not on file Legal Sex Male 1:13 PM CDT Gender Identity Not on file Sexual Orientation Not on file documented as of this encounter Miscellaneous Notes * Cerner Conversion Note - Macrina ProviderMD - 01/18/2021 4:05 PM CDT Stroke/Warfarin Instructions Entered On: 01/18/2021 16:07 EDT Performed On: 01/18/2021 16:05 EDT by Misty Schmitt Lpn Stroke/Warfarin Instructions Stroke/TIA Discharge Ins : Open Warfarin Discharge Ins : N/A Misty Schmitt Lpn - 01/18/2021 16:05 EDT Stroke/TIA Discharge Instructions Individualized Stroke Risk Factors *Q : High cholesterol, Hypertension/High blood pressure Stroke Education Handouts Given *Q : Yes Misty Schmitt Lpn - 01/18/2021 16:05 EDT Stroke Education Materials Given-Grid Activation of EMS *Q : Verbalizes understanding Follow-up Care After Discharge *Q : Verbalizes understanding Medications prescribed at DC *Q : Verbalizes understanding Risk Factors for Stroke *Q : Verbalizes understanding Warning S&S of Stroke *Q : Verbalizes understanding Misty Schmitt Lpn - 01/18/2021 16:05 EDT Stroke/TIA Signs/Symptoms to Report Immediately : Sudden onset difficulty speaking, Sudden onset difficulty understanding speech, Sudden onset change in vision, Sudden onset weakness particulary on one side of the body, Sudden onset numbness/tingling, Sudden severe headache, Sudden dizziness or trouble with gait, Call : EMS activation is crucial My LDL Level: : LDL Level Cholesterol LDL Calculation: 30.4 mg/dL (01/02/21 04:13:00) Cholesterol LDL Calculation: 66.8 mg/dL (12/25/20 10:54:00) Misty Schmitt Lpn - 01/18/2021 16:05 EDT documented in this encounter Plan of Treatment Not on file documented as of this encounter Visit Diagnoses Not on filedocumented in this encounter
--- OUTSIDE RECORDS SUMMARY | 2025-01-05 12:56 | XMS_ITS | Clinical Summary ---
Author Organization [facility] [employer] Address [address] [place] [address] Care Team Providers Care Environmental Science Professor Name Role Phone Unavailable Primary Care [...] 12/27/2020 Carotid bruit 03/25/2024 Mixed hyperlipidemia 03/25/2024 Family History Medical History Relation Name Comments Coronary artery disease Father Coronary artery disease Mother Relation Name Status Comments Father Mother Social History Tobacco Use Types Packs/Day [...] Date Derek rded Speak language other than Hungarian at home Not on file 02/17/2024 Want [...] 04/05/2024 10:56 AM EDT Plan of Treatment Health Maintenance Due Date Last Done Comments Depression Screening (12+) 1952 Shingles Vaccine (Zoster) (1 of 2) 1989 Respiratory Syncytial Virus (RSV) Adult or (1 - 1-dose 75+ series) 2014 Pneumococcal 50+ years (2 of 2 - PCV) 07/27/2019 07/27/2018 COVID-19 VACCINE (6 - 2023-2 5 season) 2024 05/14/2022, 04/17/2021, 09/22/2020, Additional history exists Falls Risk Screening 07/27/2024 Influenza Vaccine (Season Ended) 2025 Tobacco Cessation Counseling and Screening (12+) 04/05/2025 04/05/2024 DTAP/TDAP/TD VACCINES (3 - T d or Tdap) 08/13/2033 08/13/2023, 07/27/[address] [place] [id number] [employer]
--- OUTSIDE RECORDS SUMMARY | 2025-01-05 12:56 | XMS_ITS | Encounter Summary ---
Author Organization [facility] Address [address] [place] [address] Care Team Providers Care Gum Mixer Name Role Phone Unavailable Primary Care Provider Unavailabl e Encounter Details Date Type Department Care Team (Late st Contact Info) Description 01/08/2021 Transcribed Document [facility] [place] Family Medicine [facility] [place] [address] ProviderMacrina MD [address] [place] [address] Social History Tobacco Use Types Packs/Day Years Used Date Smoking Tobacco: Never Assessed Sex and Gender Information Value Date Recorded Sex Assigned at Not on file Legal Sex Male 1:13 PM CDT Gender Identity Not on file Sexual Orientation Not on file documented as of this encounter Miscellaneous Notes * Cerner Conversion Note - Macrina Cordova MD - 01/08/2021 2:17 PM CDT Patient: JOSE ADORNO Age: 80 [...] 0.5 MCG/KG/. 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 MRI brain yesterday revealed [...] 180s. 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 ICU day: 123 Vent day: 5, extubated 12/31/20 Reintubated 01/01/21, extubated 01/05 TLDL 12/27/20, remove today PICC per CTS Intake & Output Totals Last 24 Hours (7a-7a) Intake (40 Events) Medications (228.5 mL) Enteral Additional Water Given (200 mL) Enteral Feeding Amount (1200 mL) Output (13 Events) Spence Catheter (3100 mL) Input Total: 1628.5 mL Output Total: 3100 mL Balance: -1471.5 mL Review of Systems Constitutional: Weakness, Fatigue. Eye: Negative. Ear/Nose/Mouth/Throat: Negative. Respiratory: No shortness of breath, No cough, No sputum production. Cardiovascular: Chest pain: incisional . Gastrointestinal: Negative. Musculoskeletal: generalized discomfort. Integumentary: Negative. Neurologic: Alert and oriented X4. Psychiatric: Anxiety. Unable to obtain: Follows commands denies abdominal pain denies chest pain. Health Status Allergies: Allergic Reactions (Selected) No Known Allergies, No qualifying data available Current medications: (Selected) Inpatient Medications Ordered Ancef: 2 Gram, 50 mL, 100 mL/Hr, [...] 1,000 mg, 100 mL/Hr, IV Piggyback, Q6HInt Melatonin: 3 mg, Oral, At Bedtime, PRN: [...] Use Protonix: 40 mg, IV Push, Daily SEROquel: 12.5 mg, Oral, At Bedtime, PRN: Insomnia Tylenol: 650 mg, Oral, Q4H, PRN: Temperature [...] IntraVENous docusate sodium: 100 mg, Oral, BID gabapentin: 300 mg, Oral, Daily gabapentin: 600 mg, Oral, At Bedtime hydrALAZINE: 10 mg, IV Push, Q6H, PRN: Hypertension insulin regular 50 kg - 75 k kg - 75 kg scale, SubCutaneous, Q6H lactobacillus acidophilus: 1 Cap, Oral, BID lisinopril: 20 mg, Oral, BID melatonin: 5 mg, Oral, At Bedtime metoprolol tartrate: 50 mg, Oral, Q6H morphine: [...] Tab, 0 Refill(s), Medications (41) Active Scheduled: (19) #NaCl 0.9% *FLUSH* inj [...] 50 mL 1,000 mg, IV Piggyback, Q6HInt docusate sod 100 mg/10 mL liq 100 [...] tab 20 mg 1 Tab, Oral, BID melatonin 5 mg tab 5 mg 1 Tab, Oral, At Bedtime metoprolol tartrate 50 mg tab 50 mg 1 Tab, Oral, Q6H pantoprazole 40 mg inj 40 mg, IV Push, Daily polyethylene glycol 3350 pwd 17 g pkt 17 Gram 1 Packet, Oral, Daily senna 8.8 mg/5 mL liq 15 mL 8.8 mg 5 mL, Oral, BID Continuous: (3) dexmedeTOMIDine 400 mcg + NaCl 0.9% TITRATE [...] 10 mEq 50 mL, IV Piggyback, Q1H QUEtiapine 25 mg tab 12.5 mg 0.5 Tab, Oral, At Bedtime sodium bicarbonate 50 mEq/50 ml inj syr 50 mEq 50 mL, IV Push, 1-Time sodium bicarbonate 50 mEq/50 ml inj syr 100 mEq 100 mL, IV Push, 1-Time Problem list: All Problems At risk for sleep apnea / IMO 75986884 / Confirmed Colorectal surgery / SNOMED CT 1994404329 / Confirmed Aortic valve stenosis / SNOMED CT 321239878 / Confirmed HTN - Hypertension / SNOMED CT 9349492745 / Confirmed At risk for violence / IMO 39011102 / Confirmed Hypertension / SNOMED CT 91087191 / Confirmed Hyperlipidemia / SNOMED CT 24562366 / Confirmed Chronic anxiety / SNOMED CT 111869266 / Confirmed GERD - Gastro-esophageal reflux disease / SNOMED CT 3735089197 / Confirmed Disorder of prostate / SNOMED CT 92955802 / Confirmed Back pain, chronic / SNOMED CT 532763208 / Confirmed Aortic stenosis, severe / SNOMED CT 0621693630 / Confirmed Arthritis of right knee / SNOMED CT 6187789500 / Confirmed H/O peripheral neuropathy / SNOMED CT 541080480 / Confirmed feet tingle all the time Resolved: Cancer of colon / SNOMED CT 5300783870, Active Problems (14) Aortic stenosis, severe Aortic valve stenosis Arthritis of right knee At risk for sleep apnea At risk for violence Back pain, chronic Chronic anxiety Colorectal surgery Disorder of prostate GERD - Gastro-esophageal reflux disease H/O peripheral neuropathy HTN - Hypertension Hyperlipidemia Hypertension Physical Examination VS/Measurements Vitals Signs (last 24 hrs) Last Charted Minimum Maximum Apical HR H 109 (JAN 08 12:08) H 109 (JAN 08 12:08) H 114 (JAN 07 17:30) Mon HR 101 (JAN 08 13:00) 97 (DEC 15 00:51) 116 (DEC 14 16:47) Resp Rate H 25 (JAN 08 13:00) 16 (JAN 07 18:00) H 39 (JAN 07 23:00) SBP 140 (JAN 08 13:00) L 87 (JAN 08 08:00) H 170 (JAN 07 17:00) DBP 65 (JAN 08 13:00) L 49 (JAN 08 08:00) 84 (JAN 07 17:00) MAP 94 (JAN 08 13:00) 62 (CESAR 15 08:00) 118 (DEC 14 17:00) SpO2 95 (DEC 15 13:00) L 93 (DEC 14 21:00) 99 (DEC 15 10:55) Intake & Output Totals Last 24 Hours (7a-7a) Intake (40 Events) Medications (228.5 mL) Enteral Additional Water Given (200 mL) Enteral Feeding Amount (1200 mL) Output (13 Events) Spence Catheter (3100 mL) Input Total: 1628.5 mL Output Total: 3100 mL Balance: -1471.5 mL General: frail, elderly and on room air . Eye: Pupils are equal, round and [...] Labs (Last four charted values) WBC H 16.3 (DEC 15) H 15.3 (CESAR 14) H 15.8 (CESAR 13) H 9.9 (CESAR 12) HB L 10.0 (CESAR 15) L 9.4 (CESAR 14) L 9.2 (CESAR 13) L 7.8 (CESAR 12) HCT L 30.7 (CESAR 15) L 29.7 (CESAR 14) L 28.1 (CESAR 13) L 24.2 (CESAR 12) Plt H 410 (CESAR 15) 310 (CESAR 14) 253 (CESAR 13) 174 (CESAR 12) Na 139 (CESAR 15) 140 (CESAR 14) 138 (CESAR 13) 141 (CESAR 12) K 3.8 (CESAR 15) 4.0 (CESAR 14) 3.8 (CESAR 13) 4.2 (CESAR 12) Cl 102 (CESAR 15) 107 (CESAR 14) 106 (CESAR 13) 111 (CESAR 12) CO2 30 (CESAR 15) 31 (CESAR 14) 28 (CESAR 13) 29 (CESAR 12) BUN H 31 (CESAR 15) H 24 (CESAR 14) 22 (CESAR 13) H 24 (CESAR 12) Cr 0.80 (CESAR 15) 0.70 (CESAR 14) L 0.60 (CESAR 13) L 0.60 (CESAR 12) Glu R H 147 (CESAR 15) H 145 (CESAR 14) H 119 (CESAR 13) H 126 (CESAR 12) Ca 8.8 (CESAR 15) 8.5 (CESAR 14) L 8.2 (CESAR 13) L 7.8 (CESAR 12) Lactic 1.0 (CESAR 13) 1.2 (CESAR 07) 1.4 (CESAR 06) 1.4 (CESAR 06) PT 11.4 (CESAR 04) H 17.4 (CESAR 03) H 14.3 (CESAR 03) H 18.7 (CESAR 03) INR 1.1 (CESAR 04) H 1.7 (CESAR 03) H 1.4 (CESAR 03) H 1.8 (CESAR 03) PTT 27.8 (CESAR 05) H 62.4 (CESAR 03) H 37.3 (CESAR 03) H 55.9 (CESAR 03) AST H 40 (CEASR 15) 35 (CESAR 14) H 41 (CESAR 13) H 46 (CESAR 12) ALT 48 (CESAR 15) 40 (CESAR 14) 49 (CESAR 13) 46 (CESAR 12) ALK P 109 (CESAR 15) 92 (CESAR 14) 80 (CESAR 13) 63 (CESAR 12) T Bili H 1.4 (CESAR 15) H 1.3 (CESAR 14) H 1.8 (CESAR 13) 1.1 (CESAR 12) PTN 6.8 (CESAR 15) L 6.1 (CESAR 14) L 6.1 (CESAR 13) L 5.3 (CESAR 12) ALB L 2.7 (CESAR 15) L 2.4 (CESAR 14) L 2.5 (CESAR 13) L 2.2 (CESAR 12) Troponin <0.015 (CESAR 01) . Blood Gases (Current Encounter/Past 24 Hours) No Blood Gas Results Found (Past 24 Hours) JAN 08 05:45 139 102 H 31 / H 147 3.8 30 0.80 \ JAN 08 05:45 \ L 10.0 / H 16.3 H 410 / L 30.7 \ Blood Gases (Current Encounter/Past 24 Hours) No Blood Gas Results Found (Past 24 Hours) Radiology Results (Last 48 hours) [id number] -- 12/27/2020 06:39 CR Chest 1 Vw [...] transcribed report. CR Chest 1 Vw Portable (01/08/2021 04:13) Result: PORTABLE CHEST 01/08/2021 4:00 AM HISTORY: Pleural effusion.COMPARISON: 1 day prior.FINDINGS: Status post median sternotomy. The heart is stable in size. The lung dykes demonstrate no significant change in the perihilaropacities and small left pleural effusion. There is no pneumothorax . The support devices are in good position . IMPRESSION: There has been no significant interval change . Continued follow-up recommended .Images reviewed, interpreted, and dictated by Dr. Brayan Pratt.Transcribed by Enrique Stinson PA-C.I have personally viewed, interpreted and dictated the examination. Ihave read and agree with the above final transcribed report. CR Chest 1 Vw Portable (01/08/2021 12:03) Result: PORTABLE CHEST HISTORY: Line placement.COMPARISON: 7 hours prior.FINDINGS: There is a new right PICC line in good position with the tipat the cavoatrial junction. The heart is enlarged in size. There isectasia of the aorta with calcified plaque identified. There are smallbilateral pleural effusions. There is improved aeration with decreasededema. There is no pneumothorax. IMPRESSION: 1. New right PICC line tip in good position.2. Improved aeration with decreased edema. Images reviewed, interpreted, and dictated by Dr. Bebeto Avelar.Transcribed by Alyse Cabrera PA-C. MRI of the brain was reported to [...] bilateral acute infarcts PLAN: Extubated on 01/05/21 BIPAP PRN for increased WOB and HS Supplemental O2 to maintain O2 saturations 92-96% Duonebs Q6H Mucinex 200mg Q6H Encourage IS and FVD Cardiology following -Stop Amio secondary to prolonged QTc, discussed with CTS and cardiology Monitor need for continued diuresis Hemodynamics: Stable, off pressors and now with HTN Lisinopril 20mg BID and metoprolol 50mg Q6H, hydralazine 10mg Q6H PRN CTS following Remove central line and PICC today per CTS Neurology following Add Seroquel 12.5mg HS PRN Add melatonin for insomnia Antibiotics: Zosyn for total of 8 days, Klebsiella PNA, stopped Zosyn and switched to Cefepime, continue TF per dietary, speech following Prophylaxis: Protonix, SCDs -Anticoagulation per CTS Bowel regimen: Docusate, Senna, Miralax Sodium phosphate 15mmol CXR and labs in AM labs and images reviewed. FULL CODE Prognosis - Guarded. I have [...]
--- OUTSIDE RECORDS SUMMARY | 2025-01-05 12:56 | XMS_ITS | Encounter Summary ---
Author Organization [facility] [employer] [facility] Address [address] [place] [address] Care Team Providers Care Recycling Technician Name Role Phone Unavailable Primary Care Provider Unavailabl e Encounter Details Date Type Department Care Team (Late st Contact Info) Description 01/12/2021 Transcribed Document [facility] [place] Family Medicine [address] [place] [address] ProviderMacrina MD [address] [place] [address] Social History Tobacco Use Types Packs/Day Years Used Date Smoking Tobacco: Never Assessed Sex and Gender Information Value Date Recorded Sex Assigned at Not on file Legal Sex Male 1:13 PM CDT Gender Identity Not on file Sexual Orientation Not on file documented as of this encounter Miscellaneous Notes * Cerner Conversion Note - Macrina Cordova MD - 01/12/2021 7:40 AM CDT Patient: JOSE ADORNO Age: 80 years Sex: Male : 1940 Associated Diagnoses: None Author: SHARMILA KEEN MD-CAR BASIC PCP: Robert Batista MD Primary Order Management Specialist: Arthur Gomez MD Subjective NAD Health Status Allergies: Allergic Reactions (Selected) No [...] Oral, BID Lovenox: 40 mg, SubCutaneous, Daily Maxipime + Sodium Chloride 0.9% intravenous solution [...] Tab, Oral, BID, 60 Tab, 0 Refill(s), Home Medications (6) Active amLODIPine 5 mg [...] = 1 Tab, Oral, BID , Medications (37) Active Scheduled: (18) #NaCl 0.9% *FLUSH* inj [...] tab 5 mg 1 Tab, Oral, BID melatonin 3 mg tab 3 mg 1 [...] At risk for sleep apnea / IMO [id number] / Confirmed Colorectal surgery / SNOMED CT 2492934953 / Confirmed Aortic valve stenosis / SNOMED CT 145712972 / Confirmed HTN - Hypertension / SNOMED CT 7180516486 / Confirmed At risk for violence / IMO 45328803 / Confirmed Hypertension / SNOMED CT 73701757 / Confirmed Hyperlipidemia / SNOMED CT 17525580 / Confirmed Chronic anxiety / SNOMED CT 206400639 / Confirmed GERD - Gastro-esophageal reflux disease / SNOMED CT 7905282532 / Confirmed Disorder of prostate / SNOMED CT 29952474 / Confirmed Back pain, chronic / SNOMED CT 747932481 / Confirmed Aortic stenosis, severe / SNOMED CT 2138146787 / Confirmed Arthritis of right knee / SNOMED CT 4885768794 / Confirmed H/O peripheral neuropathy / SNOMED CT 853968302 / Confirmed feet tingle all the time , Active Problems (14) Aortic stenosis, severe Aortic valve stenosis Arthritis of right knee At risk for sleep apnea At risk for violence Back pain, chronic Chronic anxiety Colorectal surgery Disorder of prostate GERD - Gastro-esophageal reflux disease H/O peripheral neuropathy HTN - Hypertension Hyperlipidemia Hypertension Objective Intake and Output 24 hour intake, 24 hour output VS/Measurements Vitals Signs (last 24 hrs) Last Charted Minimum Maximum Temp 98.5 (JAN 12 04:39) 98.5 (JAN 12 04:39) 98.3 (JAN 12 02:20) Apical HR H 104 (DEC 18 21:17) H 104 (DEC 18 21:17) H 108 (DEC 18 08:33) Mon HR 96 (JAN 12 04:39) 86 (DEC 18 23:00) 106 (DEC 18 09:00) Resp Rate 18 (JAN 12 02:20) 14 (DEC 18 14:00) H 38 (DEC 18 13:00) SBP 116 (JAN 12 04:39) 95 (DEC 18 12:00) H 154 (DEC 18 19:00) DBP 71 (JAN 12 04:39) L 57 (DEC 18 23:00) 87 (JAN 12 02:20) MAP 83 (JAN 12 04:39) 74 (JAN 11 12:00) 112 (JAN 12 02:20) SpO2 98 (JAN 12 04:39) L 92 (JAN 11 08:12) 100 (JAN 11 12:00) General: Alert and oriented, No acute distress. Eye: Pupils are equal, round and reactive to light, Normal conjunctiva, Vision unchanged. HENT: Normocephalic. Neck: Supple. Respiratory: Breath sounds are equal, Symmetrical chest wall expansion. Breath sounds: Bilateral, Rhonchi present. Support: Oxygen ( 2 L/min ), Oxygen delivery method ( Nasal cannula ). Cardiovascular: Normal rate, Regular rhythm, Good pulses equal in all extremities. Gastrointestinal: Soft, Non-tender, Non-distended, Normal bowel sounds. Genitourinary: indwelling rocha catheter. Musculoskeletal: No deformity. Integumentary: Warm, Dry. Neurologic: Alert, Oriented. Psychiatric: Cooperative, Appropriate mood & affect. Results Review JAN 12 06:09 138 104 H 33 / H 133 4.4 29 0.70 \ JAN 12 06:09 \ L 9.6 / H 11.8 H 472 / L 29.6 \ [id number] -- 12/27/2020 06:39 CR Chest 1 Vw Portable (01/11/2021 04:23) Result: PORTABLE CHESTHISTORY: Pleural effusion.COMPARISON: January 10, 2021.FINDINGS: A single portable radiograph of the chest was performed. The heart is enlarged. The patient is post median sternotomy. Feedingtube and right PICC remain in place. The aortic contours are normal. There are stable right lung opacities favored represent edema orpneumonia. There is a small right pleural effusion.. There is nopneumothorax identified. The visualized osseous structures demonstrateno acute abnormalities. IMPRESSION: Stable right lung opacities favored to represent edema orpneumonia with small right pleural effusion.Images reviewed, interpreted, and dictated by Dr. Christiano Gurrola.Transcribed by Jo Lowe (R), Darrell (R).I have personally viewed, interpreted and dictated [...] left ventricular tear. Impression and Plan IMPRESSION: *Aortic stenosis, severe. Hx nonischemic cardiomyopathy, Echo EF 55% (01-10-21) 11/15/19 -C no obstructive disease. BAV 09/19/19 - ECHO EF 40%. severe aortic stenosis peak P mean P.83 s/p TAVR 12/27/2020. Apical perforation/Acute tamponade s/p pericardiocentesis and surgical repair of LV [place]. *PEA Arrest; CODE called 10 minutes to ROSC Mediastinal hemorrhage/Cardiac tamponade s/p emergent sternotomy; repair of left ventricular teat 12/27/2020 - Mechanical vent placed during surgery; extubated 01/05/21 *acute blood loss anemia s/p Transfusions: 4 units of PRBCs, cryoprecipitate, platelets, and FFP *Hypertension *Neurologic changes; CVA CT - no acute changes. MRI - Multiple acute infarcts PLAN; 01/12/2021 Continue current CV meds. Increase activity w/ PT. Placement in progress. Will sign-off, call if questions. RV with Dr. Gomez in 1-2 wks. 01/11/2021 The patient is still having fluctuations in blood pressure. Changing Lisinopril to 5mg po BID and continuing Metoprolol 50mg po BID. Continue PT and OT. Nutritional support. 01/10/2021 The patient's blood pressure is better controlled today, however he is having episodes of hypotension during the evening. We will change Lisinopril to 10mg daily and Metoprolol 50mg po BID. Continue to follow. 01/09/2021 The patient had an episode of hypotension last night requiring a fluid bolus, however he remains tachycardic today. We will decrease Lisinopril to 10mg po BID and continue with Metoprolol 50mg po every 6 hours. Continue to follow. 01/08/2021 Increased his beta blockers yesterday, however [...]
--- OUTSIDE RECORDS SUMMARY | 2025-01-05 12:56 | XMS_ITS | Encounter Summary ---
Author Organization [facility] Address [address] [place] [address] Care Team Providers Care Needle Grader Name Role Phone Unavailable Primary Care Provider Unavailabl e Encounter Details Date Type Department Care Team (Late st Contact Info) Description 01/18/2021 Transcribed Document [facility] [place] Family Medicine [address] [place] [address] ProviderMacrina MD [address] [place] [address] Social History Tobacco Use Types Packs/Day Years Used Date Smoking Tobacco: Never Assessed Sex and Gender Information Value Date Recorded Sex Assigned at Not on file Legal Sex Male 1:13 PM CDT Gender Identity Not on file Sexual Orientation Not on file documented as of this encounter Miscellaneous Notes * Cerner Conversion Note - Historical ProviderMD - 01/18/2021 3:50 PM CDT Discharge Summary, PT Entered On: 01/18/2021 15:51 EDT Performed On: 01/18/2021 15:50 EDT by NEDA DAVIS PTA Discharge Summary Discharge Summary Provider Notified : Nursing, Physical Therapy Reason for Discharge : Discharge order Discharged to, Therapy : Unit, rehabilitation NEDA DAVIS PTA - 01/18/2021 15:50 EDT Discharge Summary Comment, PT : pt has discharge orders in from hospital to rehab facility, per last PTx on 01/18 - pt min A for supine <> sit, pt sat EOB for 5 minutes with min A. PT agrees with written D/C summary. VALENCIA LEONARD, PT - 01/18/2021 16:06 EDT Short Term Goals Strength STG Grid Goal #1 Goal #2 Activity : Bilateral lower extremity Bilateral upper extremity Muscle Grade : 3/fair 3/fair Date to Meet : 01/10/2021 EDT 01/10/2021 EDT Goal Status : Goal met Goal met Date Met : 01/10/2021 EDT 01/10/2021 EDT NEDA DAVIS PTA - 01/18/2021 15:50 EDT NEDA DAVIS PTA - 01/18/2021 15:50 EDT Group Home Goals Mobility/Bed Mobility LTG PT Grid Goal #1 Goal #2 Activity : Supine to sit Sit to stand Assist : Supervision or set-up Supervision or set-up Date to Meet : 01/31/2021 EDT 01/31/2021 EDT Goal Status : Not met Not met Comment : re-assess 01/17 NEDA DAVIS PTA - 01/18/2021 15:50 EDT NEDA DAVIS PTA - 01/18/2021 15:50 EDT Ambulation LTG Grid Goal #1 Device : Walker, front wheel Distance : 100' Assist : Assist, minimal Date to Meet : 01/31/2021 EDT Goal Status : Not met NEDA DAVIS PTA - 01/18/2021 15:50 EDT documented in this encounter Plan of Treatment Not on file documented as of this encounter Visit Diagnoses Not on filedocumented in this encounter
--- OUTSIDE RECORDS SUMMARY | 2025-01-05 12:56 | XMS_ITS | Encounter Summary ---
Author Organization [facility] Address [address] [place] [address] Care Team Providers Care Field Foreman Name Role Phone Unavailable Primary Care Provider Unavailabl e Encounter Details Date Type Department Care Team (Late st Contact Info) Description 01/12/2021 Transcribed Document [facility] [place] Family Medicine [address] [place] [address] ProviderMacrina MD [address] [place], [place] [address] Social History Tobacco Use Types Packs/Day Years Used Date Smoking Tobacco: Never Assessed Sex and Gender Information Value Date Recorded Sex Assigned at Not on file Legal Sex Male 1:13 PM CDT Gender Identity Not on file Sexual Orientation Not on file documented as of this encounter Miscellaneous Notes * Cerner Conversion Note - Historical ProviderMD - 01/12/2021 1:52 AM CDT Meds to Bed Enrollment Entered On: 01/13/2021 13:48 EDT Performed On: 01/12/2021 1:52 EDT by SALLY JAIN RPh Meds to Bed Enrollment Patient Enrollment Decision: : Yes/enroll in meds to bed program SALLY JAIN RP - 01/13/2021 13:48 EDT documented in this encounter Plan of Treatment Not on file documented as of this encounter Visit Diagnoses Not on filedocumented in this encounter
--- OUTSIDE RECORDS SUMMARY | 2025-01-05 12:56 | XMS_ITS | Encounter Summary ---
Author Organization [facility] Address [address] [place] [address] Care Team Providers Care Branch Services Manager Name Role Phone Unavailable Primary Care Provider Unavailabl e Encounter Details Date Type Department Care Team (Late st Contact Info) Description 12/03/[address] [facility] [place] Family Medicine [address] [place] [address] ProviderMacrina MD [address] [place] [address] Social History Tobacco Use Types Packs/Day Years Used Date Smoking Tobacco: Never Assessed Sex and Gender Information Value Date Recorded Sex Assigned at Not on file Legal Sex Male 1:13 PM CDT Gender Identity Not on file Sexual Orientation Not on file documented as of this encounter Miscellaneous Notes * Cerner Conversion Note - Historical ProviderMD - 12/03/2020 2:38 PM CDT Event Note Entered On: 12/03/2020 14:39 EDT Performed On: 12/03/2020 14:38 EDT by CINDY HAGAN RN Event Note Description of Event : Sudha Wick PA-C here to see patient. CINDY HAGAN RN - 12/03/2020 14:38 EDT documented in this encounter Plan of Treatment Not on file documented as of this encounter Visit Diagnoses Not on filedocumented in this encounter
--- OUTSIDE RECORDS SUMMARY | 2025-01-05 12:56 | XMS_ITS | Encounter Summary ---
Author Organization [facility] Address [address] [place] [address] Care Team Providers Care Production Gear Cutter Name Role Phone Unavailable Primary Care Provider Unavailabl e Encounter Details Date Type Department Care Team (Late st Contact Info) Description 01/14/2021 Transcribed Document [facility] [place] [address] [place] [address] ProviderMacrina MD [address] [place], [place] [address] Social History Tobacco Use Types Packs/Day Years Used Date Smoking Tobacco: Never Assessed Sex and Gender Information Value Date Recorded Sex Assigned at Not on file Legal Sex Male 1:13 PM CDT Gender Identity Not on file Sexual Orientation Not on file documented as of this encounter Miscellaneous Notes * Cerner Conversion Note - Historical ProviderMD - 01/14/2021 5:33 PM CDT Consult Phone Call Documentation Entered On: 01/15/2021 10:27 EDT Performed On: 01/14/2021 17:33 EDT by [facility] Coord Phone Call for Consults Consult Phone Call/Page Attempt : First call Consult Reason : PEG placement Physician Requesting Consult : EMEKA MADERA MD-CAT Physician Requested for Consult : PEYTON BEATTY MD Provider Service Notified Name : Other: general surgery Date and Time Call Returned : 01/15/2021 10:27 EDT [facility] - 01/15/2021 10:26 EDT Electronically signed by Elmer [facility] Conversion Smeller Cerner at 11/10/2022 9:08 AM CDT documented in this encounter Plan of Treatment Not on file documented as of this encounter Visit Diagnoses Not on filedocumented in this encounter
--- OUTSIDE RECORDS SUMMARY | 2025-01-05 12:56 | XMS_ITS | Encounter Summary ---
Author Organization [facility] Address [address] [place] [address] Care Team Providers Care Citizenship Instructor Name Role Phone Unavailable Primary Care Provider Unavailabl e Encounter Details Date Type Department Care Team (Late st Contact Info) Description 12/03/2020 Transcribed Document [facility] [place] Family Medicine [address] [place] [address] ProviderMacrina MD [address] [place] [address] Social History Tobacco Use Types Packs/Day Years Used Date Smoking Tobacco: Never Assessed Sex and Gender Information Value Date Recorded Sex Assigned at Not on file Legal Sex Male 1:13 PM CDT Gender Identity Not on file Sexual Orientation Not on file documented as of this encounter Miscellaneous Notes * Cerner Conversion Note - Macrina ProviderMD - 12/03/2020 1:36 PM CDT Pre Procedure Adult Entered On: 12/03/2020 13:36 EDT Performed On: 12/03/2020 13:36 EDT by CINDY HAGAN RN Height and Weight, Clinical Dosing Height Source : Stated Height Entry Format : [place] Height, Feet : 5 ft(Converted to: 152 cm, 60 Inch) Height, Inches : 8 Inch(Converted to: 0 ft 8 Inch, 20.32 cm) Clinical Height : 172.72 cm Weight Source : Standing scale Weight Entry Format : [place] Clinical Dosing Weight : 66.36 kg Weight, Pounds : 146 lb Body Surface Area (BSA) : 1.79 m2 Body Mass Index : 22.2 kg/m2 [place] Body Weight : 67 kg CINDY HAGAN RN - 12/03/2020 13:36 EDT Health Histories Social History (As Of: 12/03/2020 13:37:45 EDT) Tobacco: Never (less than 100 in lifetime) Smoking Status. (Last Updated: 11/15/2019 07:26:30 EDT by ASHLEY STAFFORD, RN) Alcohol: Alcohol Use History No. (Last Updated: 11/15/2019 07:26:36 EDT by ASHLEY STAFFORD, RN) General Info Arrived From : Home Mode of Arrival on Unit : Ambulatory Patient Arrival Date/Time : 12/03/2020 13:21 EDT Support Person/Pt Rep Name : Evelia Adorno - Support Person/Pt Rep Contact Information : [phone] Want Family/Rep/Phys Notified of Admit : No Emergency Contact #1 : Evelia Charu Adorno Emergency Contact #1 Emergency Contact #1 Relationship : Primary Language : Syriac Communication Barrier : None CINDY HAGAN RN - 12/03/2020 13:36 EDT Vital Measurements Temperature, Fahrenheit : 97.9 Deg F Clinical Temperature, C : 36.6 Deg C Heart Rate, Apical : 60 bpm Systolic Blood Pressure : 149 mmHg (HI) Diastolic Blood Pressure : 79 mmHg Oxygen Saturation : 95 % Oxygen Therapy Mode : Room air CINDY HAGAN RN - 12/03/2020 13:53 EDT documented in this encounter Plan of Treatment Not on file documented as of this encounter Visit Diagnoses Not on filedocumented in this encounter
--- OUTSIDE RECORDS SUMMARY | 2025-01-05 12:56 | XMS_ITS | Encounter Summary ---
Author Organization [facility] Address [address] [place] [address] Care Team Providers Care Belt Loop Cutter Name Role Phone Unavailable Primary Care Provider Unavailabl e Encounter Details Date Type Department Care Team (Late st Contact Info) Description 12/25/2020 Transcribed Document [facility] [place] [address] [place] [address] ProviderMacrina MD [address] [place], [place] [id number] Social History Tobacco Use Types Packs/Day Years Used Date Smoking Tobacco: Never Assessed Sex and Gender Information Value Date Recorded Sex Assigned at Not on file Legal Sex Male 1:13 PM CDT Gender Identity Not on file Sexual Orientation Not on file documented as of this encounter Miscellaneous Notes * Cerner Conversion Note - Historical ProviderMD - 12/25/2020 10:58 AM CDT Spiritual Care Assessment Entered On: 12/27/2020 7:09 EDT Performed On: 12/27/2020 6:40 EDT by BRISSA SULLIVAN General Information Initial Visit : Yes Referred by : Patient Referral Reason Comment : Pre-surgery visit Ministry Provided to : Patient, Family/Significant other BRISSA SULLIVAN P - 12/27/2020 7:08 EDT Spiritual Assessment Spiritual Assessment Comment/Summary Points : Provided pre-surgery visit and prayer with patient and . Spirital Assessment Comment/Summary Report : SPIRITUAL ASSESSMENT COMMENT/SUMMARY No qualifying data available. BRISSA SULLIVAN - 12/27/2020 7:08 EDT Interventions Emotional Support : Empathic/Engaged listening, Family/Significant other supported Spiritual and Christianity : Prayer shared, Spiritual/Christianity support provided BRISSA SULLIVAN - 12/27/2020 7:08 EDT documented in this encounter Plan of Treatment Not on file documented as of this encounter Visit Diagnoses Not on filedocumented in this encounter
--- OUTSIDE RECORDS SUMMARY | 2025-01-05 12:56 | XMS_ITS | Encounter Summary ---
Author Organization [facility] Address [address] [place] [address] Care Team Providers Care Puppet Master Name Role Phone Unavailable Primary Care Provider Unavailabl e Encounter Details Date Type Department Care Team (Late st Contact Info) Description 12/03/2020 Transcribed Document [facility] [place] [address] [place] [address] ProviderMacrina MD [address] [place], [place] [id number] Social History Tobacco Use Types Packs/Day Years Used Date Smoking Tobacco: Never Assessed Sex and Gender Information Value Date Recorded Sex Assigned at Not on file Legal Sex Male 1:13 PM CDT Gender Identity Not on file Sexual Orientation Not on file documented as of this encounter Miscellaneous Notes * Cerner Conversion Note - Historical ProviderMD - 12/03/2020 3:03 PM CDT Event Note Entered On: 12/03/2020 15:03 EDT Performed On: 12/03/2020 15:03 EDT by CINDY HAGAN RN Event Note Description of Event : Report given to SHYAM Leon STEPHANIE M, RN - 12/03/2020 15:03 EDT documented in this encounter Plan of Treatment Not on file documented as of this encounter Visit Diagnoses Not on filedocumented in this encounter
--- OUTSIDE RECORDS SUMMARY | 2025-01-05 12:56 | XMS_ITS | Encounter Summary ---
Author Organization [facility] Address [address] [place] [address] Care Team Providers Care Parks Worker Name Role Phone Unavailable Primary Care Provider Unavailabl e Encounter Details Date Type Department Care Team (Late st Contact Info) Description 01/14/2021 Transcribed Document [facility] [place] Family Medicine [address] [place] [address] ProviderMacrina MD [address] [place] [address] Social History Tobacco Use Types Packs/Day Years Used Date Smoking Tobacco: Never Assessed Sex and Gender Information Value Date Recorded Sex Assigned at Not on file Legal Sex Male 1:13 PM CDT Gender Identity Not on file Sexual Orientation Not on file documented as of this encounter Miscellaneous Notes * Cerner Conversion Note - Macrina ProviderMD - 01/14/2021 11:08 AM CDT Bronchodilator Assessment Score, RT Entered On: 01/14/2021 11:09 EDT Performed On: 01/14/2021 11:08 EDT by JOSE VASQUEZ Respiratory Therapist II Bronchodilator Assessment Score, RT Pulmonary Diagnosis/History : n/a Home Respiratory Medications : n/a Home Oxygen Comment : n/a Home CPAP Comment : n/a Pulmonary History, Bronchodilator Assessment Score : No pulmonary history Smoking History, Bronchodilator Assessment Score : No smoking history Chest Xray Results, Bronchodilator Assessment Sc : Clear or none Surgical Status, Bronchodilator Assessment Score : No surgery Respiratory Status, Bronchodilator Assessment Sc : Regular pattern - no dyspnea Breath Sounds, Bronchodilator Assessment Score : Clear Oxygen Level, Bronchodilator Assessment Score : 1-2 LPM Cough, Bronchodilator Assessment Score : Strong spontaneous/non-productive Bronchodilator Assessment Score Comments : prn Assessment Score, Bronchodilator Assessment Score : 1 JOSE VASQUEZ Respiratory Therapist II - 01/14/2021 11:08 EDT Electronically signed by Elmer, Olinda Conversion Telecommunications Linesworker Cerner at 11/10/2022 9:27 AM CDT documented in this encounter Plan of Treatment Not on file documented as of this encounter Visit Diagnoses Not on filedocumented in this encounter
--- OUTSIDE RECORDS SUMMARY | 2025-01-05 12:56 | XMS_ITS | Encounter Summary ---
Author Organization [employer] [facility] Address [address] [place] [address] Care Team Providers Care Fuel Distribution System Operator Name Role Phone Unavailable Primary Care Provider Unavailabl e Encounter Details Date Type Department Care Team (Late st Contact Info) Description 12/05/2020 Transcribed Document [facility] Pulm & Critical Care Medicine [address] [place] [address] [address] [place] [address] Erick Navarro MD [address] [facility] [address] [place] [address] Social History Tobacco Use Types Packs/Day Years Used Date Smoking Tobacco: Never Assessed Sex and Gender Information Value Date Recorded Sex Assigned at Not on file Legal Sex Male 1:13 PM CDT Gender Identity Not on file Sexual Orientation Not on file documented as of this encounter Miscellaneous Notes * Cerner Conversion Note - Erick Navarro MD - 12/05/2020 9:05 AM EDT DATE OF SERVICE: 12/03/2020 PATIENT DATA: Gender: Male. Age: 80. Race: . Height: 68 inches. Weight: 150 pounds. Body mass index: 22.79. TEST COMMENTS: Spirometry data is acceptable and reproducible according to ATS criteria. Flow volume loops are acceptable. Exhalation time more than 6 seconds. SPIROMETRY: 1. FVC 3.77 L, 103% predicted. 2. FEV1 2.72 L, 105% predicted. 3. FEV1/FVC percentage predicted 72. Diffusion lung capacity was 114% predicted when corrected to alveolar volume. IMPRESSION: 1. Normal spirometry. 2. Diffusion lung capacity was slightly increased. Clinical correlation is indicated for hyperreactive airway disease versus obesity, but the patient's BMI is 22.79. /[id number] MD CARLOS Hernandez/STACIE / CARLOS / MODL /[id number] documented in this encounter Plan of Treatment Not on file documented as of this encounter Visit Diagnoses Not on filedocumented in this encounter
--- OUTSIDE RECORDS SUMMARY | 2025-01-05 12:56 | XMS_ITS | Encounter Summary ---
Author Organization [facility] Address [address] [place] [address] Care Team Providers Care Plywood Layup Line Back Feeder Name Role Phone Unavailable Primary Care Provider Unavailabl e Encounter Details Date Type Department Care Team (Late st Contact Info) Description 01/18/2021 Transcribed Document [facility] Family Medicine [address] [place] [address] ProviderMacrina MD [address] [place] [address] Social History Tobacco Use Types Packs/Day Years Used Date Smoking Tobacco: Never Assessed Sex and Gender Information Value Date Recorded Sex Assigned at Not on file Legal Sex Male 1:13 PM CDT Gender Identity Not on file Sexual Orientation Not on file documented as of this encounter Miscellaneous Notes * Cerner Conversion Note - Macrina Cordova MD - 01/18/2021 4:09 PM CDT [facility] [place] [address] JOSE ADORNO :1940 Visit Time:12/27/2020 Your Visit Summary Your Care Team Primary Care Physician - PERICO AWAN (REF), ROSIO Referring Physician - PERICO AWAN (REF)ROSIO Your Diagnosis Anxiety Cardiac tamponade Critical aortic stenosis, Critical aortic stenosis, Nonrheumatic aortic (valve) stenosis, Nonrheumatic aortic (valve) stenosis GERD (gastroesophageal reflux disease) History of Colon cancer S/P Surgery HLD (hyperlipidemia) HTN (hypertension) Mediastinal Hemorrhage Peripheral neuropathy Discharge Vitals Temperature 36.6 ??C Heart Rate (Monitored) 80 Blood Pressure 110/67 What to do next Instructions From Your Care Team [facility] Number for Report: [phone] Fax for Discharge Summary: [phone] Transportation: [facility] Van at 1615 Follow-Up Appointments Follow Up with DANYELLE WLATERS When 02/08/2021 11:00 AM EDT Comments ECHO same day, prior to follow up appointment with Dr. Crawford. Arrive at [facility] at 9am. Where: [address] [place] [address]- Business (1) Follow Up with EMEKA MADERA When 02/05/2021 10:15 AM EDT Comments Appointment has been made Where: [address] [place] [id number]- Business (1) Follow Up with FITO MEDRANO When Within 6 weeks Comments Hospital f/u for stroke; Call for follow up appointment when discharged from Rehab Where: [address] [place] [address]- Business (1) Follow Up with PERICO AWAN MD When Within 5 to 7 days Comments Call for follow up appointment when discharged from Rehab Where: [address] [place] [id number]- Follow Up with [facility] When Within 6 weeks Comments Office to call with appoint/instructions Where: Medications What How Much When Instructions Next Dose acetaminophen (Tylenol 325 mg oral tablet) 2 Tablet(s) Oral Every 4 Hours as needed for Temperature acetaminophen-hydrocodone (acetaminophen-HYDROcodone 325 mg-5 mg oral tablet) 2 Tablet(s) Oral Every 4 Hours as needed for Pain (Moderate 4-6) aspirin (aspirin 81 mg oral delayed release tablet) 1 Tablet(s) Oral Every Day bumetanide (bumetanide 0.5 mg oral tablet) 1 Tablet(s) Oral Two Times A Day escitalopram (Lexapro 10 mg oral tablet) 1 Tablet(s) Oral Every Day famotidine (Pepcid 20 mg oral tablet) 1 Tablet(s) Oral Every Day metoprolol (Lopressor 50 mg oral tablet) 1 Tablet(s) Oral Two Times A Day polyethylene glycol 3350 (MiraLax) 17 Gram(s) Oral Every Day as needed for Constipation traZODone (traZODone 50 mg oral tablet) 0.5 Tablet(s) Oral At Bedtime atorvastatin (atorvastatin 40 mg oral tablet) 1 Tablet(s) Oral Every Day Duration: 90 Day(s) clopidogrel (Plavix 75 mg oral tablet) 1 Tablet(s) Oral Every Day gabapentin (gabapentin 600 mg oral tablet) 1 Tablet(s) Oral At Bedtime lisinopril (lisinopril 5 mg oral tablet) 1 Tablet(s) Oral Two Times A Day Take your medications faithfully. Do NOT skip [...] Risk Factors Individualized Stroke Risk Factors *Q: High cholesterol, Hypertension/High blood pressure Stroke/TIA Signs/Symptoms to Report Immediately: Sudden onset difficulty speaking, Sudden onset difficulty understanding speech, Sudden onset change in vision, Sudden onset weakness particulary on one side of the body, Sudden onset numbness/tingling, Sudden severe headache, Sudden dizziness or trouble with gait, Call : EMS activation is crucial Mutually Agreed Upon Goals My LDL Level: My LDL Level: Education Materials Pulmonary Artery Catheterization Introduction Pulmonary artery catheterization is a procedure that is used to test blood movement through the heart and to monitor the heart's function. In this procedure, a thin, flexible tube (catheter) is passed into the right side of the heart and into the main artery that carries blood from your heart to your lungs (pulmonary artery). The procedure may be used to evaluate or help diagnose various problems, such as: ??? Heart failure. ??? Shock. ??? Leaky heart valves (valvular regurgitation). ??? Congenital heart disease. ??? Horne. ??? Kidney disease. ??? High blood pressure within the arteries in the lungs (pulmonary hypertension). ??? A buildup of fluid around the heart that prevents the heart from functioning normally (cardiac tamponade). ??? A disease that causes the heart muscle to become rigid (restrictive cardiomyopathy). ??? Abnormal blood flow between two areas of the heart (shunt). After a heart attack, this procedure may be used to monitor for further problems and to see if medicines are working. The procedure may be done in a cardiac catheterization lab or in an intensive care unit (ICU). Tell a health care provider about: ??? Any allergies you have. ??? All medicines you are taking, including vitamins, herbs, eye drops, creams, and [id number] medicines. ??? Any problems you or family members have had with anesthetic medicines. ??? Any blood disorders you have. ??? Any surgeries you have had. ??? Any medical conditions you have. What are the risks? Generally, this is a safe procedure. However, problems may occur, including:???Bruising or bleeding at the catheter insertion site. ??? Injury to the vein where the catheter was inserted. ??? Puncture to the lung. This is a risk if neck or chest veins are used. The following problems may also occur, but they are very rare: ??? Abnormal heart rhythms. ??? Low blood pressure. ??? Infection. ??? Cardiac tamponade. ??? Blocked blood vessel caused by a blood clot or foreign material circulating in the blood (embolism). This can be caused by blood clots at the tip of the catheter. What happens before the procedure? Follow instructions from your health care provider about eating or drinking restrictions. ??? Ask your health care provider about: ? Changing or stopping your regular medicines. This is especially important if you are taking diabetes medicines or blood thinners. ? Taking medicines such as aspirin and ibuprofen. These medicines can thin your blood. Do not take these medicines before your procedure if your health care provider instructs you not to. What happens during the procedure? An IV tube will be inserted into one of your veins. ??? You may be given a medicine that helps you relax (sedative). ??? The area of your body that is chosen for insertion of the catheter will be cleaned. This is usually the neck or groin, but the insertion is sometimes done in another area.? You will be given a medicine that numbs this area (local anesthetic). ? A small incision will be made in a vein in this area. ??? A catheter will be inserted through the incision and into the vein. The health care provider will carefully move the catheter into the upper chamber of the heart (right atrium). X-rays may be used to help guide the catheter to the right place. ??? The catheter will be threaded through two heart valves (tricuspid valve and pulmonary valve) and placed into the pulmonary artery. ??? As soon as the catheter is in place, the blood pressure in the pulmonary artery will be measured. ??? During the procedure, your heart's rhythm will be watched constantly using an electrocardiogram (ECG). ??? The catheter will be removed after tests and monitoring have been completed. The procedure may vary among health care providers and hospitals. What happens after the procedure? Your blood pressure, heart rate, breathing rate, and blood oxygen level will be monitored often until the medicines you were given have worn off. This information is not intended to replace advice given to you by your health care provider. Make sure you discuss any questions you have with your health care provider. Document Released: 11/16/2007 Document Revised: 12/18/2016 Document Reviewed: 07/17/2015 ?? 2017 Elsevier Emergency Awareness and Preventative Care STROKE is [...] Assistance with quitting is available by contacting 7-217-JIFWNOW. This is a free resource providing counseling, support, and referral. Or you may contact your personal physician. [place] Suicide Prevention Lifeline: The National Suicide Prevention [...] CPR? There are two easy steps: Call 9-1-1 if you see a teen or adult [...] This Visit (last charted value for your 12/27/2020 visit) Blood Gases 01/06/2021 4:58 AM HCO3 Art: 28.7 mmol/L -- Normal range between ( 20.0 and 26.0 ) sO2 Art: 95.8 % -- Normal range between ( 95.0 and 100.0 ) pCO2 Art: 37.3 mmHg -- Normal range between ( 35.0 and 45.0 ) pH Art: 7.49 -- Normal range between ( 7.35 and 7.45 ) pO2 Art: 72.3 mmHg -- Normal range between ( 80.0 and 100.0 ) ABG Num of Draw Attempts: 1 Acceptable Grey's Test Art: Acceptable BE Art: 5.1 mmol/L Oxygen Flow Rate Art: 6.0 Liter Delivery Device Type Art: Cannula tHb Art: 9.8 Gram/dL -- Normal range between ( 12.0 and 18.0 ) Ventilator Mode Art: N/A Temperature, F Art: 98.6 Deg F ctO2: 13.1 mmol/L FHHb: 4.1 % Art Blood Gas (ABG) Site: Right Radial 01/05/2021 4:16 AM FIO2 Art: 40 Respiratory Rate Art: 15.0 Set Rate Art: 14.0 Tidal Volume Set Art: 440.0 mL CPAP/PEEP Art: 8.0 cmH2O PaO2/FiO2 calculated: 209 01/01/2021 4:48 AM Comment Art: niv 09/0512/27/2020 5:31 PM pO2 Art POC: 141.0 mmHg -- Normal range between ( 80.0 and 105.0 ) BE Art POC: 6.0 mmol/L HCO3 Art POC: 31.0 mmol/L -- Normal range between ( 22.0 and 26.0 ) pH Art POC: 7.365 -- Normal range between ( 7.350 and 7.450 ) sO2 Art POC: 99.0 % -- Normal range between ( 95.0 and 98.0 ) tCO2 Art POC: 33.0 mmol/L -- Normal range between ( 23.0 and 27.0 ) pCO2 Art POC: 54.2 mmHg -- Normal range between ( 35.0 and 45.0 ) Hematology 01/18/2021 3:43 AM WBC: 10.1 K/uL -- Normal range between ( 3.6 and 9.5 ) RBC: 3.87 Million/uL -- Normal range between ( 4.20 and 5.70 ) Hct: 34.6 % -- Normal range between ( 40.1 and 51.0 ) Hgb: 10.7 g/dL -- Normal range between ( 13.5 and 17.3 ) Platelet Count: 445 K/uL -- Normal range between ( 163 and 369 ) MCH: 27.6 pg -- Normal range between ( 25.6 and 32.2 ) MCHC: 30.9 Gram/dL -- Normal range between ( 32.2 and 36.5 ) MCV: 89.4 fL -- Normal range between ( 79.0 and 94.8 ) Slide Review: No RDW: 13.3 % -- Normal range between ( 11.7 and 14.9 ) MPV: 11.5 fL -- Normal range between ( 9.4 and 12.4 ) 01/12/2021 6:09 AM Eos %: 4.4 % -- Normal range between ( 0.0 and 7.0 ) Denali #: 1.00 K/uL -- Normal range between ( 0.16 and 1.00 ) Eos #: 0.52 x10(3)/uL -- Normal range between ( 0.00 and 0.80 ) [place]ali %: 8.5 % -- Normal range between ( 3.0 and 9.0 ) Baso %: 0.8 % -- Normal range between ( 0.0 and 1.5 ) Baso #: 0.09 x10(3)/uL -- Normal range between ( 0.00 and 0.20 ) Neut %: 75.4 % -- Normal range between ( 34.0 and 71.0 ) Neut #: 8.90 K/uL -- Normal range between ( 1.56 and 6.13 ) Lymph %: 10.1 % -- Normal range between ( 19.3 and 53.1 ) Lymph #: 1.19 x10(3)/uL -- Normal range between ( 1.00 and 3.90 ) IG#: 0.10 x10(3)/uL -- Normal range between ( 0.00 and 0.05 ) IG%: 0.80 % -- Normal range between ( 0.00 and 0.60 ) 01/04/2021 4:14 AM nRBC: 0.020 -- Normal range between ( 0.000 and 0.012 ) 12/27/2020 5:31 PM Hemoglobin POC: 7.8 Gram/dL -- Normal range between ( 12.0 and 17.0 ) Hematocrit POC: 23.0 % -- Normal range between ( 38.0 and 51.0 ) 12/27/2020 1:22 PM RBC Morphology: Abnormal Ovalocytes: 1+ Platelet Ct Estimate: Decreased Syeda Cells: 1+ Poikilocytosis: 1+ Urinalysis 12/25/2020 10:54 AM Urine Nitrite: Negative Urine Leukocyte Esterase: Negative Urine Appearance: Clear Urine Glucose Dipstick: Negative Urine Blood Dipstick: Negative Urine Urobilinogen Dipstick: 0.2 EU/dL Urine Protein Dipstick: Negative Urine Color: Yellow Urine Ketones Dipstick: Negative Urine pH Dipstick: 5.5 -- Normal range between ( 6.0 and 8.0 ) Urine Bilirubin Dipstick: Negative Urine Specific Hodge: 1.017 -- Normal range between ( 1.005 and 1.030 ) Urine Type.: U CleanCatch Urine Culture if Indicated: Not Indicated Microbiology 01/04/2021 7:32 PM Viral Culture, Reflexive: No virus isolated. Specimen Source: RLL Micro Comments: sero sang 01/04/2021 1:26 PM Bronchial Alveolar Lavage Culture: See Result Influenza A: Not Detected Respiratory Syncytial Virus: Not Detected Legionella pneumophila: Not Detected Influenza B: Not Detected Rhinovirus/Enterovirus: Not Detected Human metapneumovirus: Not Detected Adenovirus: Not Detected Staphylococcus aureus: Not Detected Streptococcus agalactiae: Not Detected Streptococcus pyogenes: Not Detected Streptococcus pneumoniae: Not Detected Haemophilus influenzae: Not Detected Pseudomonas aeruginosa: Not Detected Enterobacter cloacae complex: Not Detected Escherichia coli: Not Detected Klebsiella oxytoca: Not Detected Proteus: Not Detected Serratia marcescens: Detected KPC (Carbapenemase): Not Detected Mycoplasma pneumoniae: Not Detected Chlamydia pneumoniae: Not Detected Moraxella catarrhalis: Not Detected CTX-M (ESBL): Not Detected mecA/C and MREJ (Methicillin resistance): Not Applicable VIM (Carbapenemase): Not Detected Klebsiella pneumoniae group: Not Detected A. calco-baumannii complex: Not Detected IMP (Carbapenemase): Not Detected NDM (Carbapenemase): Not Detected Acceptable specimen: Yes,see culture OXA-48-like (Carbapenemase): Not Detected Parainfluenza virus: Not Detected Klebsiella aerogenes: Not Detected Respiratory Culture and Stain: POS Coronavirus (Not COVID-19): Not Detected 12/27/2020 7:53 PM Blood Culture: See Result 12/25/2020 11:30 AM SARS-CoV-2 (COVID19 PCR): Negative Blood Bank 12/30/2020 9:43 AM TRANSFUSED: TRANSFUSED 12/30/2020 9:22 AM Plt Product Ready: Platelet Ready # of Units: 1 12/27/2020 7:53 PM FFP Product Ready: Done 12/27/2020 7:11 PM Cryo Product Ready: Done 12/27/2020 4:31 PM RBC Product Ready: Done 12/27/2020 4:08 PM # of Units:: 4 Units 12/27/2020 7:10 AM ABO/Rh Repeat: A POS 12/25/2020 10:54 AM ABO/Rh (ECHO): A POS Antibody Screen: Negative ABSC Crossmatch: Computer XM OK General Chemistry 01/18/2021 12:02 PM Glucose POC2: 131 mg/dL -- Normal range between ( 70 and 110 ) Device Comment 1: Device Comment 1 01/18/2021 3:43 AM Creatinine Level: 1.00 mg/dL -- Normal range between ( 0.70 and 1.30 ) Sodium Level: 132 mmol/L -- Normal range between ( 136 and 146 ) Potassium Level: 4.8 mmol/L -- Normal range between ( 3.5 and 5.1 ) Chloride Level: 99 mmol/L -- Normal range between ( 102 and 112 ) Carbon Dioxide Level: 29 mmol/L -- Normal range between ( 21 and 32 ) Anion Gap: 9 -- Normal range between ( 9 and 20 ) Bun/Creatinine: 46.0 -- Normal range between ( 8.0 and 20.0 ) Calcium Level: 9.3 mg/dL -- Normal range between ( 8.4 and 10.1 ) eGFR : >60 mL/min/1.73m2 eGFR NonAfrican: >60 mL/min/1.73m2 Glucose Level: 84 mg/dL -- Normal range between ( 74 and 106 ) Blood Urea Nitrogen: 46 mg/dL -- Normal range between ( 7 and 22 ) 01/12/2021 6:09 AM Bilirubin Total: 1.0 mg/dL -- Normal range between ( 0.2 and 1.2 ) A/G Ratio: 0.6 -- Normal range between ( 1.1 and 2.5 ) ALT: 61 Units/Liter -- Normal range between ( 16 and 61 ) AST: 53 Units/Liter -- Normal range between ( 5 and 37 ) Globulin: 4.4 Gram/dL -- Normal range between ( 1.5 and 4.5 ) Alk Phos: 140 Units/Liter -- Normal range between ( 27 and 136 ) Calcium Ionized: 1.18 mmol/L -- Normal range between ( 1.12 and 1.32 ) Magnesium Level: 2.4 mg/dL -- Normal range between ( 1.5 and 2.4 ) Phosphorus: 3.0 mg/dL -- Normal range between ( 2.5 and 4.9 ) Protein Total: 7.0 Gram/dL -- Normal range between ( 6.4 and 8.2 ) Albumin Level: 2.6 Gram/dL -- Normal range between ( 3.4 and 5.0 ) 01/08/2021 11:33 PM Lactic Acid Level: 1.3 mmol/L -- Normal range between ( 0.4 and 2.0 ) 01/07/2021 5:24 AM CRP: 5.22 mg/dL -- Normal range between ( 0.00 and 0.30 ) Lactate Dehydrogenase: 187 Units/Liter -- Normal range between ( 87 and 241 ) 01/02/2021 3:55 AM Hgb A1C: 5.5 % eAVG Glucose: 111 mg/dL 12/27/2020 9:11 PM Device Comment 2: Device Comment 2 12/27/2020 7:50 PM Bilirubin Direct: 0.3 mg/dL -- Normal range between ( 0.0 and 0.2 ) 12/27/2020 5:31 PM Sodium POC: 154 mmol/L -- Normal range between ( 138 and 146 ) Ca Ioniz POC: 1.04 mmol/L -- Normal range between ( 1.12 and 1.32 ) Potassium POC: 3.7 mmol/L -- Normal range between ( 3.5 and 4.9 ) Glucose POC: 262 mg/dL -- Normal range between ( 70 and 105 ) :Calcium Ionized POC: :Calcium Ionized POC Cardiac Specific Markers 01/07/2021 5:24 AM ProBNP: 5653 pg/mL -- Normal range between ( 0 and 450 ) 12/25/2020 10:54 AM CKMB: CKMB CK MB: 3.30 ng/mL -- Normal range between ( 0.50 and 3.60 ) Troponin I Ultra: <0.015 ng/mL -- Normal range between ( 0.015 and 0.045 ) Coagulation 12/29/2020 2:11 PM PTT: 27.8 Second(s) -- Normal range between ( 22.0 and 33.0 ) 12/28/2020 5:20 AM INR: 1.1 -- Normal range between ( 0.9 and 1.2 ) PT: 11.4 Second(s) -- Normal range between ( 9.2 and 12.0 ) 12/27/2020 5:45 PM Fibrin Degradation Products: >20 ug/ml 12/27/2020 5:40 PM Fibrinogen Level: 122 mg/dL -- Normal range between ( 220 and 420 ) 12/27/2020 4:41 PM ACT POC: 131 Second(s) -- Normal range between ( 74 and 137 ) Lipid Studies 01/02/2021 4:13 AM Cholesterol Tot: 76 mg/dL -- Normal range between ( 0 and 199 ) Cholesterol HDL: 33.0 mg/dL Cholesterol LDL Calculation: 30.4 mg/dL -- Normal range between ( 0.0 and 99.0 ) Cholesterol VLDL Calculation: 12.6 mg/dL -- Normal range between ( 5.0 and 40.0 ) Cholesterol/HDL Ratio: 2.3 -- Normal range between ( 0.0 and 3.2 ) Triglyceride: 63 mg/dL -- Normal range between ( 0 and 249 ) LDL/HDL Ratio: 0.9 -- Normal range between ( 0.0 and 3.6 ) Endocrinology 01/12/2021 6:09 AM Procalcitonin: <0.25 ng/mL -- Normal range between ( 0.00 and 2.00 ) 12/25/2020 10:54 AM TSH: 1.830 mcInt Units/mL -- Normal range between ( 0.358 and 3.740 ) T4 Total: 8.6 mcg/mL -- Normal range between ( 4.5 and 12.1 ) Computed Tomography 01/05/2021 11:[address] Thoracentesis w/ IMAG Guid RT: CT Thoracentesis w/ IMAG Guid RT 01/04/2021 6:[address] Chest WO: CT Chest WO 12/29/2020 11:[address] Head WO: CT Head WO Diagnostic Radiology 01/18/2021 7:06 AM CR Chest 1 Vw Portable: CR Chest 1 Vw Portable 01/16/2021 10:16 AM CR Modified Swallowing Funct W Video: CR Modified Swallowing Funct W Video 01/01/2021 10:22 AM CR Abdomen 1 Vw Portable: CR Abdomen 1 Vw Portable 12/25/2020 12:40 PM CR Chest 2 Vws: CR Chest 2 Vws Magnetic Resonance Imaging 01/02/2021 1:46 PM MRI Brain WO: MRI Brain WO Echo 12/28/2020 8:21 AM EC Echo Complete: EC Echo Complete Vascular Ultrasound 01/01/2021 2:52 PM VL Carotid Duplex BILAT: VL Carotid Duplex BILAT 12/27/2020 12:36 PM VL Vascular Access: VL Vascular Access Patient Name:JOSE ADORNO I have received and understand this information and was given the opportunity to ask questions. Patient/Multiple Slide Operator Name: Patient/Multiple Slide Operator Signature: Relationship to Patient: Clinician/Hospital Multiple Slide Operator Signature: Date: documented in this encounter Plan of Treatment Not on file documented as of this encounter Visit Diagnoses Not on filedocumented in this encounter
--- OUTSIDE RECORDS SUMMARY | 2025-01-05 12:56 | XMS_ITS | Encounter Summary ---
Author Organization [facility] Address [address] [place] [address] Care Team Providers Care Wash Tank Tender Name Role Phone Unavailable Primary Care Provider Unavailabl e Encounter Details Date Type Department Care Team (Late st Contact Info) Description 01/18/2021 Transcribed Document [facility] Family Medicine [address] [place] [address] ProviderMacrina MD [address] [place] [address] Social History Tobacco Use Types Packs/Day Years Used Date Smoking Tobacco: Never Assessed Sex and Gender Information Value Date Recorded Sex Assigned at Not on file Legal Sex Male 1:13 PM CDT Gender Identity Not on file Sexual Orientation Not on file documented as of this encounter Miscellaneous Notes * Cerner Conversion Note - Macrina Cordova MD - 01/18/2021 11:54 AM CDT Final Discharge Planning Entered On: 01/18/2021 11:57 EDT Performed On: 01/18/2021 11:54 EDT by ASHLEY CHAIDEZ RN-Optimization Manager Final Discharge Planning Discharge Arrangements : Patient Post-Acute Information Patient Name: JOSE ADORNO Gender: Male : [birth year] Age: 80 Years Janel Referral(s): Service: Organization: Business Address: Phone Number: Acute Rehab [facility] [address] [facility], [place], [address] Patient Offered Choice/Affiliations Explained : Yes Designation of Choice Signed : Yes Important Medicare Message Reviewed With : Patient Important Medicare Message Reviewed D/T : 01/17/2021 9:30 EDT Transportation Needs : Wheelchair van Discharge Transportation Arrangement Cmt : [facility] [place] at 1615 Follow Up Appointment Scheduled : Yes Is Patient High/Moderate Readmission Risk? : No Patient/Family Notified of Plan : Yes Support Person/Pt Rep Notified of Plan : Yes Patient/Family Notified : Patient/Spouse Is Patient Ready for Discharge? : Yes Physician Notified Patient is Ready for Discharge? : Yes Discharge To Care Management : [facility]patient [facility] ASHLEY CHAIDEZ RN-Optimization Manager - 01/18/2021 11:54 EDT Final Narrative Note Final Narrative Note : RAR Low ELOS: 3 days HD#22 Boost 6 80 year old male with history HTN, diagnosed with aotic stenosis a year ago but refused TVAR. He complained of declining functional capacity and easy fatiguability and presents for a TVAR. 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 in agreement with the plan. ASHLEY CHAIDEZ RN-Optimization Manager - 01/18/2021 11:54 EDT documented in this encounter Plan of Treatment Not on file documented as of this encounter Visit Diagnoses Not on filedocumented in this encounter
--- OUTSIDE RECORDS SUMMARY | 2025-01-05 12:56 | XMS_ITS | Encounter Summary ---
Author Organization [employer] [facility] [employer] Address [address] [place] [id number] Care Team Providers Care Hydrogen Power Plant Engineer Name Role Phone Unavailable Primary Care Provider Unavailabl e Encounter Details Date Type Department Care Team (Late st Contact Info) Description 12/25/2020 Transcribed Document [facility] [place] [address] [place] [address] ProviderMacrina MD [address] [place] [address] Social History Tobacco Use Types Packs/Day Years Used Date Smoking Tobacco: Never Assessed Sex and Gender Information Value Date Recorded Sex Assigned at Not on file Legal Sex Male 1:13 PM CDT Gender Identity Not on file Sexual Orientation Not on file documented as of this encounter Miscellaneous Notes * Cerner Conversion Note - Macrina ProviderMD - 12/25/2020 10:37 AM CDT PAT Adult Entered On: 12/25/2020 10:39 EDT Performed On: 12/25/2020 10:37 EDT by TONY BRIDGES RN Vital Measurements Temperature Source : Temporal artery scanning Temperature Mode : Fahrenheit Temperature, Fahrenheit : 97.0 Deg F Clinical Temperature, C : 36.1 Deg C Pulse Method : Pulse Oximetry Peripheral Pulse Rate : 59 bpm (LOW) Respiratory Rate : 18 Breaths/Min Blood Pressure Location : Arm, right upper Blood Pressure Source : Non-Invasive BP Device Blood Pressure Position : Sitting Systolic Blood Pressure : 117 mmHg Diastolic Blood Pressure : 67 mmHg Oxygen Saturation : 97 % Oxygen Therapy Mode : Room air TONY BRIDGES RN - 12/25/2020 10:50 EDT Height and Weight, Clinical Dosing Height Source : Measured Height Entry Format : [place] Height, Feet : 0 ft(Converted to: 0 cm, 0 Inch) Height, Inches : 67.75 Inch(Converted to: 5 ft 8 Inch, 172.08 cm) Clinical Height : 172.09 cm Weight Source : Standing scale Weight Entry Format : [place] Clinical Dosing Weight : 65.14 kg Weight, Pounds : 143 lb Weight, Ounces : 5 oz Body Surface Area (BSA) : 1.77 m2 Body Mass Index : 22 kg/m2 Faith Body Weight : 67 kg TONY BRIDGES RN - 12/25/2020 10:37 EDT Health Histories Smoking Status : Never (less than 100 in lifetime; none in last 30 days) Smokeless Tobacco Status : Never TONY BRIDGES RN - 12/25/2020 10:39 EDT Social History (As Of: 12/25/2020 10:41:17 EDT) Tobacco: Never (less than 100 in lifetime) Smoking Status. (Last Updated: 11/15/2019 07:26:30 EDT by ASHLEY STAFFORD RN) Alcohol: Alcohol Use History No. (Last Updated: 11/15/2019 07:26:36 EDT by ASHLEY STAFFORD RN) Substance Abuse: Drug Use Hx: No. Use in Last 12 Months: No. (Last Updated: 12/25/2020 10:40:25 EDT by TONY BRIDGES RN) Infectious Disease History Has the patient ever been tested for COVID-19? : No, Screening today for COVID-19 Date of COVID-19 test known? : Yes Date of COVID-19 Test : 12/25/2020 EDT TONY BRIDGES RN - 12/25/2020 10:50 EDT Does patient have symptoms of COVID-19? : No COVID19 Screening : No Experiencing Infectious Disease Symptoms : No symptoms Physical contact outside US in the last 30 days : No Tuberculosis Symptoms : None TONY BRIDGES RN - 12/25/2020 10:39 EDT Infectious Disease History : Mumps TONY BRIDGES RN - 12/25/2020 10:37 EDT COVID19 PreProcedure Screening Is this an Emergent or Add on Procedure? : No Date PreProcedure COVID-19 test known? : Yes Date of PreProcedure COVID-19 : 12/26/2020 EDT Has patient been isolated since the test : Yes Exposed to COVID19 symptoms since test? : No Sudha Domingo RN - 12/27/2020 6:19 EDT Anesthesia/Transfusion History Family History of Anesthesia Reaction : No prior transfusion(s) Blood Transfusion Acceptable to Patient : Yes Transfusion History : Prior anesthesia without reaction Family History of Anesthesia Reaction : None TONY BRIDGES RN - 12/25/2020 10:39 EDT Advance Directive Patient has Advance Directive *Q : No, patient refuses Advance Directive information TONY BRIDGES RN - 12/25/2020 10:50 EDT Spiritual/Cultural Needs Any Spiritual/Cultural Needs or Requests : Yes Spiritual/Cultural Needs Comment : prayer before surgery (12/27/2020 in at 0530) Spiritual/Cultural Needs Comment : prayer before surgery (12/27/2020 in at 0530) TONY BRIDGES RN - 12/25/2020 10:50 EDT Dickinson Suicide Severity Rating Scale (C-SSRS) CSSRS Past Month Wish to be : No CSSRS Past Month Suicidal Thoughts : No CSSRS Lifetime Suicide Behavior : No Suicide Severity Rating Score : 0 Suicide Severity Rating : No Additional Care Required at this time TONY BRIDGES RN - 12/25/2020 10:50 EDT Psychosocial History Do You Have a History of the Following? : Anxiety Currently in Unsafe Situation : No TONY BRIDGES RN - 12/25/2020 10:50 EDT Teaching/Learning Assessment Barriers To Learning : None evident Individuals Taught : Patient, Spouse Readiness to Learn : Cooperative TONY BRIDGES RN - 12/25/2020 10:50 EDT Education Topics, Periop Preadmission Perioperative Education Grid Arrival Time/Place : Verbalizes understanding CHG Preoperative Bathing/Cloths : Verbalizes understanding Infection Control : Verbalizes understanding NPO Status/Directions : Verbalizes understanding Preprocedure Preparations : Verbalizes understanding Preprocedure Tests/Labs : Verbalizes understanding Responsible Adult : Verbalizes understanding Take/Hold Medications Pre-Procedure : Verbalizes understanding TONY BRIDGES RN - 12/25/2020 10:50 EDT General Info Unable to Assess Patient History : Patient unresponsive TONY BRIDGES RN - 12/25/2020 16:47 EDT Support Person/Pt Rep Name : Michaela Adorno - Support Person/Pt Rep Contact Information : [phone] Want Family/Rep/Phys Notified of Admit : No Emergency Contact #1 : michaela Adorno Emergency Contact #1 Emergency Contact #1 Relationship : Emergency Contact #2 : n Emergency Contact #2 Phone Number : n Emergency Contact #2 Relationship : n Information Obtained From : Patient Primary Language : Gambian Communication Barrier : None Collection Administrator Needed : No TONY BRIDGES RN - 12/25/2020 10:50 EDT Jeferson Scale Jeferson Sensory Perception : Slightly limited Jeferson Moisture : Rarely moist Jeferson Activity : Walks frequently Jeferson Mobility : No limitation Jeferson Nutrition : Adequate Jeferson Friction and Shear : No apparent problem Jeferson Score : 21 TONY BRIDGES RN - 12/25/2020 10:50 EDT Sleep Apnea Risk Assmt Hx of Obstructive Sleep Apnea Diagnosis : No Snore Loudly : No Tired, Fatigued, or Sleepy During Day : Yes Observed Stopping Breathing During Sleep : No Have/Are Being Treated for Hypertension : Yes BMI Greater Than 35 kg/m2 : No Age over 50 Years Old : Yes Neck Circumference Greater Than 40 cm : No Gender Male : Yes STOP-BANG Sleep Apnea Risk Level Score : 4 TONY BRIDGES RN - 12/25/2020 10:37 EDT documented in this encounter Plan of Treatment Not on file documented as of this encounter Visit Diagnoses Not on filedocumented in this encounter
--- OUTSIDE RECORDS SUMMARY | 2025-01-05 12:56 | XMS_ITS | Encounter Summary ---
Author Organization [facility] Address [address] [place] [address] Care Team Providers Care Office Machine Servicer Name Role Phone Unavailable Primary Care Provider Unavailabl e Encounter Details Date Type Department Care Team (Late st Contact Info) Description 01/13/2021 Transcribed Document [facility] [place] Family Medicine [address] [place] [address] ProviderMacrina MD [address] [place], [place] [id number] Social History Tobacco Use Types Packs/Day Years Used Date Smoking Tobacco: Never Assessed Sex and Gender Information Value Date Recorded Sex Assigned at Not on file Legal Sex Male 1:13 PM CDT Gender Identity Not on file Sexual Orientation Not on file documented as of this encounter Miscellaneous Notes * Cerner Conversion Note - Historical ProviderMD - 01/13/2021 5:00 PM CDT Chart Check - Review Order Profile Entered On: 01/13/2021 17:15 EDT Performed On: 01/13/2021 17:00 EDT by Dae Salcedo, RN Chart Check Powerplans Initiated/Discontinued as Appropriate : Yes All Active Orders Reviewed : Yes Dae Salcedo RN - 01/13/2021 17:15 EDT Electronically signed by [facility] Conversion Liaison Engineer Cerner at 11/10/2022 9:18 AM CDT documented in this encounter Plan of Treatment Not on file documented as of this encounter Visit Diagnoses Not on filedocumented in this encounter
--- OUTSIDE RECORDS SUMMARY | 2025-01-05 12:56 | XMS_ITS | Encounter Summary ---
Author Organization [facility] Address [address] [place] [address] Care Team Providers Care Motor And Controls Tester Name Role Phone Unavailable Primary Care Provider Unavailabl e Encounter Details Date Type Department Care Team (Late st Contact Info) Description 01/14/2021 Transcribed Document [facility] [place] Family Medicine [address] [place] [address] ProviderMacrina MD [address] [place] [address] Social History Tobacco Use Types Packs/Day Years Used Date Smoking Tobacco: Never Assessed Sex and Gender Information Value Date Recorded Sex Assigned at Not on file Legal Sex Male 1:13 PM CDT Gender Identity Not on file Sexual Orientation Not on file documented as of this encounter Miscellaneous Notes * Cerner Conversion Note - Macrina Cordova MD - 01/14/2021 3:40 PM CDT On Going Discharge Planning Entered On: 01/14/2021 15:41 EDT Performed On: 01/14/2021 15:40 EDT by ASHLEY CHAIDEZ RN-Treater HelperRailroad Brake Repairer Progress Note Patient Offered Choice/Affiliations Explained : Yes List/Info Provided Pt/Fam/Support Person : Other: Acute Rehab Were Referrals Sent to Post Acute Providers : Yes Is the Patient Meeting Medical Necessity : Yes Physician Agreeable to Move Forward with D/C Plan? : Yes Did you Attend Multidisciplinary Rounds? : Yes ASHLEY CHAIDEZ RN-Treater Helper - 01/14/2021 15:42 EDT Discharge Arrangements : Patient Post-Acute Information Patient Name: JOSE ADORNO Gender: Male : 39 Age: 80 Years No Post-Acute Placement(s) Listed No Post-Acute Service(s) Listed No [place] Referral(s) Listed ASHLEY CHAIDEZ RN-Treater Helper - 01/14/2021 15:40 EDT Discharge Options Discussed with Patient : Acute rehabilitation, Discharge transportation ASHLEY CHAIDEZ RN-Treater Helper - 01/14/2021 15:42 EDT Barriers to Discharge Identified : Clinical Condition of Patient, Follow-Up appointments needed Barriers to Discharge Unresolved : Clinical Condition of Patient ASHLEY CHAIDEZ RN-Treater Helper - 01/14/2021 15:40 EDT Narrative Progress Note Narrative Progress Note : RAR Low ELOS: 3 days HD#18 Boost 6 80 year old male with history HTN, diagnosed with aotic stenosis a year ago but refused TVAR. He complained of declining functional capacity and easy fatiguability and presents for a TVAR. Consults: Pulmonary, CTS, Neurology 6/3 TVAR, Pericardial Window, emergent sternotomy for repair left ventricular tear, embolic stroke POD#18 O2 sat 96% on 2 liters. Telemetry NSR, right side hemiparesis, dysthria, Corpak with TF. Ambulated 12 feet around bed to chair with RWx modA. DCP: Referral made to [facility], patient's 1st choice, via [facility]. bao Barnes said her MD would accept patient but would like for his PEG to be placed prior to discharge. Patient has traditional Medicare so he will not need a preauth. Historical Progress Note : HD#15; ELOS 3; LRR; BOOST 6; POD#15 - ElecTAVR/LVentTear/Tamponade = 02=1L; ZZ=538; TF/Corpak 50cc; voice improving; working w/ST for dysphagia; plan for repeat instrumental in 1 wk; ongoing therapy; spouse to provide choicing for STR; on transfer out of [facility]. SOPHY RM Rn-Treater Helper - 01/11/21 09:38:52 HD#14; ELOS 3; LRR; BOOST 6; POD#14 - ElecTAVR/LVentTear/Tamponade = 02=2L; BIPAP prn; Duonebs; Cefepime/Zosyn; FEES today; Cardiology managing Tacycardia; per LOS recommendation - pt referred to LTAC; likely DCP subacute rehab; anticipate transfer to floor soon. SOPHY RM, Rn-Treater Helper - 01/10/21 08:19:07 HD#13; ELOS 3; LRR; BOOST 6; POD#13 - ElectiveTAVR/LVentTear/Tamponade - 02=2L; BIPAP prn for WOB/hs; Duonebs/IS/FVD encouraged; Patricio gtt; central line d/c 01/08/PICC placed; T=100; Maxipime; working with therapy - very weak; Mod-Max A x2 to EOB - not safe to stand; ST - failed/ongoing dysphagia tx; Corpak/TF; DCP rehab - improving. SOPHY RM Rn-Treater Helper - 01/09/21 07:48:59 HD#12; ELOS 3; LRR; BOOST 6; POD #12 - Electiv TAVR/LVentTear/Cardiac Tamponade SOPHY RM Rn-Treater Helper - 01/08/21 14:56:21 HD#12; ELOS 3; LRR; BOOST 6; POD #12 - Electiv TAVR/LVentTear/Cardiac Tamponade/Embolic Strokes w/ R side weakness; RA; IS/FVD encouraged; report pt with delerium/lethargy overnight - pulled out IV; PICC ordered today; R arm weakness; Corpak/TF - failed ST evaluation - improving; DCP Rehab; continue to follow SOPHY RM Rn-Treater Helper - 01/08/21 14:58:32 HD#11; ELOS 3; MRR; BOOST 6; POD#11 - Elective TAVR/LVentTear/Cardiac Tamponade; 02=2L; Maxipime/Ancef; IV Bumex; working w/therapy and stood at side of bed; SOPHY RM, Rn-Treater Helper - 01/07/21 14:34:53 HD#11; ELOS 3; MRR; BOOST 6; POD#11 - Elective TAVR/LVentTear/Cardiac Tamponade; 02=2L; Maxipime/Ancef; IV Bumex; working w/therapy and stood at side of bed; ST - ongoing rec for NPO r/t dysphagia - tx; instrumental 3-4 days; Corpak/TF; DCP anticipate rehab; initial referrals placed thru [facility] and list w/post acute star ratings provided to pt for choicing. SOPHY RM Rn-Treater Helper - 01/07/21 14:36:37 HD#8; ELOS 3; LRR; BOOST 6; POD#8 - Elec TAVR/LVentTear/Cardiac Tamponade - intubated fi02 100; awake/calm/following commands; bronchoscopy scheduled today; SBT; T=101.2; MRI - diffuse scattered bilateral infarcts; Dr. Navarro states during MDR that if pt is unable to successfully wean over weekend will need trach/peg consult on Thursday; continue to follow; will need therapy evaluations when extubated. SOPHY RM Rn-Treater Helper - 01/04/21 15:16:12 HD#7; ELOS 3; LRR; BOOST 6; POD#7 - Elective TAVR/LVentTear/CardiacTamponade/Arrest - intubated fi02 40/peep 8; SBT x 2 hr; Fent/Precedex gtt; Corpak/TF; Humza CT in place; Neurology following - MRI diffuse scattered bilateral infarcts; pt w/improvement in movement of R side; PT/OT evaluations when extubated; DCP TBD - likely rehab. SOPHY RM Rn-Treater Helper - 01/03/21 15:03:09 HD#6; ELOS 3; LRR; BOOST 6; POD #6 - Electiv TAVR/L Vent Tear/Cardiac Tamponode/Arrest - reintubated 01/01; fi02 40; Levo/Fent/Precedex gtt; wean sedation - on SBT 2hr TID; T=99.9; Dr. Navarro states during MDR that pt's spouse aware may need trach/peg; DCP TBD pending progress. SOPHY RM Rn-Treater Helper - 01/02/21 14:55:12 HD#5; ELOS 3; LRR; BOOST 6; POD #5 - Elective TAVR/L Ventrial Tear/Cardiac Tamponode; extubated on 12/31 required reintubation today fi02 60/peep 8; Precedex/Fent gtt; Corpak/TF; IV Zosyn; CT draining; T=100; DCP TBD pending progress; will need therapy evals when appropriate. SOPHY RM Rn-Treater Helper - 01/01/21 14:47:57 HD#4; ELOS 3; LRR; POD#4 - Electiv TAVR; L Ventrical Tear; intubated fi02 50; Cardene gtt; Corpak to be placed and TF initiated; SBT today; following commands; Head MRI ordered; possible extubation post MRI; no movement noted on R side; will need PT/OT evaluations when extubated; DCP pending progress - likely rehab. SOPHY RM, Rn-Treater Helper - 12/31/20 14:58:43 DCP TBD - pending progress; OP Cardiac Rehab referral placed thru [facility]. SOPHY RM Rn-Treater Helper - 12/28/20 12:42:03 ASHLEY CHAIDEZ RN-Treater Helper - 01/14/2021 15:42 EDT documented in this encounter Plan of Treatment Not on file documented as of this encounter Visit Diagnoses Not on filedocumented in this encounter
--- OUTSIDE RECORDS SUMMARY | 2025-01-05 12:56 | XMS_ITS | Encounter Summary ---
Author Organization [facility] Address [address] [place] [address] Care Team Providers Care Sprinkling Truck Driver Name Role Phone Unavailable Primary Care Provider Unavailabl e Encounter Details Date Type Department Care Team (Late st Contact Info) Description 01/14/2021 Transcribed Document [facility] [place] [address] [place] [address] ProviderMacrina MD [address] [place] [address] Social History Tobacco Use Types Packs/Day Years Used Date Smoking Tobacco: Never Assessed Sex and Gender Information Value Date Recorded Sex Assigned at Not on file Legal Sex Male 1:13 PM CDT Gender Identity Not on file Sexual Orientation Not on file documented as of this encounter Miscellaneous Notes * Cerner Conversion Note - Macrina Cordova MD - 01/14/2021 9:53 AM CDT Patient: JOSE ADORNO Age: 80 years Sex: Male : 1940 Associated Diagnoses: None Author: ANANDA QUILES MD-ZURDO Subjective Patient reports he is getting stronger, feels he is going to make it ; no new issues Objective VS/Measurements Vital Signs/Vital Measures 01/14/2021 8:49 EDT Systolic Blood Pressure 123 mmHg Diastolic Blood Pressure 72 mmHg Heart Rate, Apical 97 bpm 01/14/2021 5:15 EDT Temperature, Fahrenheit 98.5 Deg F General: Pt is awake and alert, answering questions appropriately; voice is stronger, still nasal with mild dysarthria. Eye: Pupils are equal, round and reactive to light, Extraocular movements are intact. Respiratory: Respirations are non-labored. Cardiovascular: Normal rate, Regular rhythm. Neurologic: R facial droop noted, left gaze preference; remains weak on right side but improving. He was able to ambulate a short distance with PT yesterday. Results Review Labs reviewed Impression and Plan 80yo M with history of aortic stenosis admitted for TAVR; surgery took place 12/27, hospital course complicated by cardiac arrest following tamponade, resp failure and embolic strokes. He has right side weakness and neglect from stroke, MRI brain did show multiple acute bilateral cerebellar and cortical infarcts. He continues to improve, will be a very good candidate for [facility] when ready for discharge; mood is better on Lexapro, will continue. He continues with dysphagia and may need PEG tube, he is agreeable to this if needed. Continue aspirin/statin for stroke prophylaxis, no clear indication for anticoagulation at this time. Continue PT/OT/speech therapy; fine for transfer to rehab at any time from my standpoint, will need outpatient neurologic follow up. I will follow as needed from here, call with any questions. documented in this encounter Plan of Treatment Not on file documented as of this encounter Visit Diagnoses Not on filedocumented in this encounter
--- OUTSIDE RECORDS SUMMARY | 2025-01-05 12:56 | XMS_ITS | Encounter Summary ---
Author Organization [employer] [facility] Address [address] [place] [address] Care Team Providers Care Pearl Fisherman Name Role Phone Unavailable Primary Care Provider Unavailabl e Encounter Details Date Type Department Care Team (Late st Contact Info) Description 12/03/2020 Transcribed Document [facility] [place] [address] [place] [address] ProviderMacrina MD [address] [place] [address] Social History Tobacco Use Types Packs/Day Years Used Date Smoking Tobacco: Never Assessed Sex and Gender Information Value Date Recorded Sex Assigned at Not on file Legal Sex Male 1:13 PM CDT Gender Identity Not on file Sexual Orientation Not on file documented as of this encounter Miscellaneous Notes * Cerner Conversion Note - Macrina ProviderMD - 12/03/2020 2:38 PM CDT DATE OF CONSULTATION: 12/03/2020 PRIMARY CARE PHYSICIAN: Dr. Robert Batista. REASON FOR CONSULTATION: Evaluation for TAVR. CHIEF COMPLAINT: Chest pain. HISTORY OF PRESENT ILLNESS: This is a pleasant 80-year-old male, who underwent balloon aortic valvuloplasty a year ago. He states he has had a known calcified aortic valve for several years with serial yearly echocardiograms. Following his aortic valvuloplasty a year ago, he states his symptoms were not alleviated. He still has chest pain with exertion. He denies any significant shortness of breath. 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 When he does state that he has become fatigued easier and decreased functional capacity over the past year. He feels at this time he is ready to proceed with TAVR. PAST MEDICAL HISTORY: 1. Aortic valve stenosis. 2. Hypertension. 3. Nonischemic cardiomyopathy. 4. Peripheral neuropathy. 5. Hyperlipidemia. HOME MEDICATIONS: 1. Amlodipine 5 mg one p.o. daily. 2. Atorvastatin 20 mg p.o. at bedtime. 3. Gabapentin 300 mg p.o. daily. 4. Lisinopril 10 mg p.o. daily. ALLERGIES: No known drug allergies. PAST SURGICAL HISTORY: Cholecystectomy, left inguinal hernia repair. FAMILY HISTORY: None. SOCIAL HISTORY: The patient lives in [place]. 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 He denies any recent or remote history of tobacco abuse. No drugs or alcohol use. REVIEW OF SYSTEMS: The patient does have bilateral hip pain, right knee pain, chronic back pain. A complete review of systems was obtained and was otherwise negative except for described in the HPI. PHYSICAL EXAMINATION: VITAL SIGNS: Blood pressure 149/79, heart rate is 59 at sinus bradycardia, oxygen 95% on room air. GENERAL: The patient is alert and oriented, in no acute distress. HEENT: Head is normocephalic, atraumatic. Pupils are equal and reactive. NECK: Supple. No thyromegaly. No JVD. No carotid bruits are auscultated. CARDIAC: Sinus bradycardia. Systolic murmur is noted. RESPIRATORY: Lung dykes are clear to auscultation bilateral. ABDOMEN: Thin, soft, nontender, nondistended. Bowel sounds are present. EXTREMITIES: Warm and well perfused. No clubbing, cyanosis, or edema. NEUROLOGIC: Cranial nerves II through XII are grossly intact. IMPRESSION AND PLAN: Severe aortic valve stenosis. The patient did undergo balloon aortic valvuloplasty a year ago. He states he did not have relief of his symptoms. He is having decline in functional capacity. He would like to proceed with TAVR procedure. Dr. Gresham will review Mr. Adorno and determine further recommendation. /[id number] DICTATED BY: LUCÍA Phelps for Cuauhtemoc Gresham MD MD SOHAM Carrington/STACIE / SOHAM / SOHAIL /[id number] Patient was seen and examined by me personally. Patient is an 80-year-old male who has been brought to our attention for critical aortic valve stenosis. Patient has comorbid condition and is in the ninth decade of life. He will be intermediate risk for surgical aortic valve replacement. Patient would be a better candidate for transcatheter aortic valve implantation. My recommendation is to continue to workup for consideration and evaluation for transcatheter aortic valve replacement. documented in this encounter Plan of Treatment Not on file documented as of this encounter Visit Diagnoses Not on filedocumented in this encounter
--- OUTSIDE RECORDS SUMMARY | 2025-01-05 12:56 | XMS_ITS | Encounter Summary ---
Author Organization [facility] Address [address] [place] [address] Care Team Providers Care Boat Carpenter Name Role Phone Unavailable Primary Care Provider Unavailshelly e Encounter Details Date Type Department Care Team (Late st Contact Info) Description 02/05/2021 Transcribed Document [facility] [place] Family Medicine [facility] [place] [address] ProviderMacrina MD [address] [place], [place] [id number] Social History Tobacco Use Types Packs/Day Years Used Date Smoking Tobacco: Never Assessed Sex and Gender Information Value Date Recorded Sex Assigned at Not on file Legal Sex Male 1:13 PM CDT Gender Identity Not on file Sexual Orientation Not on file documented as of this encounter Miscellaneous Notes * Cerner Conversion Note - Macrina ProviderMD - 02/05/2021 4:02 PM CDT Discharge Follow Up Phone Call Entered On: 02/05/2021 16:08 EDT Performed On: 02/05/2021 16:02 EDT by Kathy Medrano higher education administrator Follow Up Phone Call Third Call Date/Time : 02/20/2021 14:39 EDT Kathy Medrano RN - 02/20/2021 14:39 EDT Second Call Date/Time : 02/19/2021 15:15 EDT Kathy Medrano RN - 02/19/2021 15:15 EDT Discharge Disposition : Discharge To Care Management: IRF -Inpatient Rehabilitation Facility-62 Kathy Medrano RN - 02/05/2021 16:02 EDT Post Visit Phone Call History : First call, Second call, Third call Kathy Medrano RN - 02/20/2021 14:39 EDT First Call Date/Time : 02/05/2021 16:02 EDT Kathy Medrano RN - 02/05/2021 16:02 EDT Kathy Medrano RN - 02/19/2021 15:15 EDT Provider Follow-Up Post Discharge : Discharge Follow Up FITO MEDRANO - Within 6 weeks EMEKA TOVARCORNELIUS - 10:15 AM [facility] - Within 6 weeks DANYELLE WALTERS - 11:00 AM PERICO AWAN MD - Within 5 to 7 days Follow Up Scheduled With PCP? : Yes Patient Has PCP Contact Info? : Yes Follow Up Scheduled with Specialist? : Yes Patient Has Specialist Contact Info? : Yes Patient Experienced Pain During Visit : No Previously Documented Retirement Patient Stated Goal : No Patient Stated Goal Kathy Medrano RN - 02/05/2021 16:02 EDT Post Visit Comments : 14 day stroke follow up: 02/05 @ 1603: spoke to patients , states the patient is still at [facility]. Pt is doing well and is improving every day. He is going to be discharged from [facility] on thursday. He has follow ups scheduled with cardiology and cardio-thoracic surgery, but was unaware of follow up with neurology. I provided her with the office contact information. She is going to call and schedule an appt. Otherwise, no concerns. 30 day stroke follow up: 02/20 @ 1438: spoke to patient, states he is doing well. He is taking all medications. He does not HH. He has a follow up with neurology in may. No concerns 60 day stroke follow up: 03/25 @ 1559: no answer, left VM. Kathy Medrano RN - 03/25/2021 15:58 EDT Electronically signed by Elmer [facility] Conversion Food Preparation Supervisor Cerner at 11/10/2022 9:15 AM CDT documented in this encounter Plan of Treatment Not on file documented as of this encounter Visit Diagnoses Not on filedocumented in this encounter
--- OUTSIDE RECORDS SUMMARY | 2025-01-05 12:56 | XMS_ITS | Encounter Summary ---
Author Organization [employer] [facility] Address [address] [place] [address] Care Team Providers Care Instrumental Music Teacher Name Role Phone Unavailable Primary Care Provider Unavailabl e Encounter Details Date Type Department Care Team (Late st Contact Info) Description 01/18/2021 Transcribed Document [facility] [place] Family Medicine [address] [place] [address] ProviderMacrina MD [address] [place], [place] [id number] Social History Tobacco Use Types Packs/Day Years Used Date Smoking Tobacco: Never Assessed Sex and Gender Information Value Date Recorded Sex Assigned at Not on file Legal Sex Male 1:13 PM CDT Gender Identity Not on file Sexual Orientation Not on file documented as of this encounter Miscellaneous Notes * Cerner Conversion Note - Macrina ProviderMD - 01/18/2021 12:15 PM CDT Discharge Summary, COMPLIANCE AND CONTROL ANALYST Entered On: 01/18/2021 10:17 EDT Performed On: 01/18/2021 12:15 EDT by JUAN MANUEL BRUMFIELD COMPLIANCE AND CONTROL ANALYST Discharge Notation. COMPLIANCE AND CONTROL ANALYST Dysphagia Treatment After Discharge : Yes Discharge Diet : Tube feeding, PEG/PEJ Discharge Liquids : Ice after oral care Discharge Silent Aspiration : Yes Repeat Instrumental Prior To : Diet upgrade, Liquid upgrade Repeat Instrumental Timeline : 1 week Discharge Communication Deficits : Yes Ongoing Communication Treatment Indicated : Yes Discharge Cognitive Deficits : Yes Ongoing Cognitive Treatment Indicated : Yes Discharge Summary Comment, COMPLIANCE AND CONTROL ANALYST : PEG successfully placed yesterday. Pt is being d/c to [facility] today. He will need continued ST services to target dysphagia, dysarthria, and cognitive-linguistic deficits. He will need repeat instrumental prior to initiating PO diet. JUAN MANUEL BRUMFIELD SLP - 01/18/2021 10:15 EDT LTG Lang/Comm/Cog LTG COMPLIANCE AND CONTROL ANALYST Edge [employer] Uppers Goal 1 Senior Living Goal 2 Goals : Improved memory in order to complete functional task(s) upon discharge Improved problem solving in order to complete functional task(s) upon discharge Status : Not met Not met JUAN MANUEL BRUMFIELD SLP - 01/18/2021 10:15 EDT JUAN MANUEL BRUMFIELD, BENJY - 01/18/2021 10:15 EDT STG Lang_Comm_Cog COMPLIANCE AND CONTROL ANALYST Education STG Grid Goal #1 Activity : Other: Pt's goal is to get out of the hospital JUAN MANUEL BRUMFIELD SLP - 01/18/2021 10:15 EDT Motor Speech STG Grid Goal #1 Activity : Use compensatory strategies to improve speech intelligibility Status : Not met JUAN MANUEL BRUMFIELD SLP - 01/18/2021 10:15 EDT Memory STG Grid Goal #1 Goal #2 Activity : Improve temporal orientation (recent memory) Improve short term functional delayed Status : Not met Not met JUAN MANUEL BRUMFIELD SLP - 01/18/2021 10:15 EDT JUAN MANUEL BRUMFIELD SLP - 01/18/2021 10:15 EDT Problem Solving STG Grid Goal #1 Goal #2 Goal #3 Activity : Improve money management Generate a list of complex/abstract items Improve time management Status : Not met Goal met Not met Date Met : 01/17/2021 EDT JUAN MANUEL BRUMFIELD, BENJY - 01/18/2021 10:15 EDT JUAN MANUEL BRUMFIELD, COMPLIANCE AND CONTROL ANALYST - 01/18/2021 10:15 EDT JUAN MANUEL BRUMFIELD COMPLIANCE AND CONTROL ANALYST - 01/18/2021 10:15 EDT Swallow Plan/Goals Swallow LTG Grid [facility] Senior Living Goal #1 COMPLIANCE AND CONTROL ANALYST Edge [employer]isher Uppers Goal #2 Swallow LTG : Establish safe oral diet without aspiration Improve swallowing function for oral intake Status : Not met Not met JUAN MANUEL BRUMFIELD SLP - 01/18/2021 10:15 EDT JUAN MANUEL BRUMFIELD, COMPLIANCE AND CONTROL ANALYST - 01/18/2021 10:15 EDT Swallow Goals Grid Goal #1 Goal #2 Goal #3 Goal #4 Swallow STG : Other: consistent swallow with ice x15 Improve pharyngeal strength Other: instrumental exam Improve laryngeal elevation Related To : Aspiration prevention, Return to oral intake Aspiration prevention, Return to oral intake Aspiration prevention, Return to oral intake Return to oral intake Date to Meet : 01/10/2021 EDT 01/23/2021 EDT 01/10/2021 EDT 01/23/2021 EDT Status : Goal met Not met Goal met Not met Date Met : 01/10/2021 EDT 01/10/2021 EDT JUAN MANUEL BRUMFIELD, COMPLIANCE AND CONTROL ANALYST - 01/18/2021 10:15 EDT JUAN MANUEL BRUMFIELD, COMPLIANCE AND CONTROL ANALYST - 01/18/2021 10:15 EDT JUAN MANUEL BRUMFIELD, [facility] - 01/18/2021 10:15 EDT JUAN MANUEL BRUMFIELD, [facility] - 01/18/2021 10:15 EDT Goal #5 Goal #6 Goal #7 Goal #8 Swallow STG : Improve labial closure Improve swallow timing Improve hyolaryngeal excursion Other: instrumental Related To : Return to oral intake Aspiration prevention, Penetration prevention Aspiration prevention, Penetration prevention Measurement by repeat instrumental exam, Return to oral intake Date to Meet : 01/10/2021 EDT 01/23/2021 EDT 01/23/2021 EDT 01/23/2021 EDT Status : Goal met Not met Not met Not met Date Met : 01/10/2021 EDT JUAN MANUEL BRUMFIELD SLP - 01/18/2021 10:15 EDT JUAN MANUEL BRUMFIELD, COMPLIANCE AND CONTROL ANALYST - 01/18/2021 10:15 EDT JUAN MANUEL BRUMFIELD, COMPLIANCE AND CONTROL ANALYST - 01/18/2021 10:15 EDT JUAN MANUEL BRUMFIELD, COMPLIANCE AND CONTROL ANALYST - 01/18/2021 10:15 EDT Goal #9 Swallow STG : Other: Pt goal: I want to go home Related To : Date to Meet : Status : Date Met : JUAN MANUEL BRUMFIELD SLP - 01/18/2021 10:15 EDT documented in this encounter Plan of Treatment Not on file documented as of this encounter Visit Diagnoses Not on filedocumented in this encounter
--- OUTSIDE RECORDS SUMMARY | 2025-01-05 12:56 | XMS_ITS | Encounter Summary ---
Author Organization [facility] Address [address] [place] [address] Care Team Providers Care Spine Surgeon Name Role Phone Unavailable Primary Care Provider Unavailabl e Encounter Details Date Type Department Care Team (Late st Contact Info) Description 01/08/2021 Transcribed Document [facility] [place] [facility] [place] Medicine [address] [place] [address] ProviderMacrina MD [address] [place], [place] [address] Social History Tobacco Use Types Packs/Day Years Used Date Smoking Tobacco: Never Assessed Sex and Gender Information Value Date Recorded Sex Assigned at Not on file Legal Sex Male 1:13 PM CDT Gender Identity Not on file Sexual Orientation Not on file documented as of this encounter Miscellaneous Notes * Cerner Conversion Note - Historical ProviderMD - 01/08/2021 8:35 AM CDT Sepsis Screening Tool Entered On: 01/08/2021 15:47 EDT Performed On: 01/08/2021 8:35 EDT by Li Abraham RN-PATIENT CARE BEDSIDE NON-EXEMPT Provider Notification Provider Notified of Concerns/Results : Other: repeat NIBP SBP WNL Provider Not Notified Reason : Other: repeat NIBP SBP WNL Li Abraham RN-PATIENT CARE BEDSIDE NON-EXEMPT - 01/08/2021 15:46 EDT Electronically signed by Olinda Payne Conversion Photocomposing Keyboard Operator Guanaco at 11/10/2022 9:04 AM CDT documented in this encounter Plan of Treatment Not on file documented as of this encounter Visit Diagnoses Not on filedocumented in this encounter
--- OUTSIDE RECORDS SUMMARY | 2025-01-05 12:56 | XMS_ITS | Encounter Summary ---
Author Organization [facility] Address [address] [place] [address] Care Team Providers Care Wood Window And Door Craftsman Name Role Phone Unavailable Primary Care Provider Unavailabl e Encounter Details Date Type Department Care Team (Late st Contact Info) Description 01/08/2021 Transcribed Document [facility] [place] [facility] [place] [facility] [place] [address] ProviderMacrina MD [address], [place] [id number] Social History Tobacco Use Types Packs/Day Years Used Date Smoking Tobacco: Never Assessed Sex and Gender Information Value Date Recorded Sex Assigned at Not on file Legal Sex Male 1:13 PM CDT Gender Identity Not on file Sexual Orientation Not on file documented as of this encounter Miscellaneous Notes * Cerner Conversion Note - Macrina Cordova MD - 01/08/2021 9:35 AM CDT Patient: JOSE ADORNO Age: 80 [...] 1012. 01/02/21: POD#6 Intubated and sedated on [id number]/hr and Precedex .6mcg/kg/min. He is also on [...] and I know he just worked with [employer]. Health Status Allergies: Allergic Reactions (Selected) No Known Allergies Physical Examination Intake and Output 24 hour intake: Total 1628 ml 24 hour output: Total 3100 ml VS/Measurements Vital Measurements 01/08/2021 9:01 EDT Heart Rate Monitored 105 bpm HI Oxygen Saturation 98 % 01/08/2021 8:00 EDT Systolic Blood Pressure 87 mmHg LOW Diastolic Blood Pressure 49 mmHg LOW Mean Arterial Pressure (MAP)-BMDI 62 Temperature Source Bladder Temperature, Celsius 37.4 Deg C Clinical Temperature, F 99.3 Deg F Oxygen Therapy Mode Room air General: Currently is asleep but was awake earlier when I rounded with Dr. Gresham. HENT: Normocephalic. Neck: Supple. Respiratory: Breath sounds: Rhonchi present. Cardiovascular: 102 beats per minute, Regular rhythm, S1, S2, No edema, Tachycardia vs atrial flutter. Gastrointestinal: Soft, Non-distended, Normal bowel sounds. Integumentary: Warm, Dry. Review / Management Results review: JAN 08 05:45 139 102 H 31 [...] though Get OOB into a chair today Diagnosis Anxiety - Pre-Op Diagnosis, Medical. Cardiac [...]
--- OUTSIDE RECORDS SUMMARY | 2025-01-05 12:56 | XMS_ITS | Encounter Summary ---
Author Organization [facility] Address [address] [place] [address] Care Team Providers Care Rug Setter Velvet Name Role Phone Unavailable Primary Care Provider Unavailabl e Encounter Details Date Type Department Care Team (Late st Contact Info) Description 01/08/2021 Transcribed Document [facility] [place] Family Medicine [address] [place] [address] ProviderMacrina MD [address] [place], [place] [address] Social History Tobacco Use Types Packs/Day Years Used Date Smoking Tobacco: Never Assessed Sex and Gender Information Value Date Recorded Sex Assigned at Not on file Legal Sex Male 1:13 PM CDT Gender Identity Not on file Sexual Orientation Not on file documented as of this encounter Miscellaneous Notes * Cerner Conversion Note - Historical ProviderMD - 01/08/2021 5:00 PM CDT Chart Check - Review Order Profile Entered On: 01/08/2021 18:07 EDT Performed On: 01/08/2021 17:00 EDT by Li Abraham RN-PATIENT CARE BEDSIDE NON-EXEMPT Chart Check Powerplans Initiated/Discontinued as Appropriate : Yes All Active Orders Reviewed : Yes Li Abraham RN-PATIENT CARE BEDSIDE NON-EXEMPT - 01/08/2021 18:07 EDT documented in this encounter Plan of Treatment Not on file documented as of this encounter Visit Diagnoses Not on filedocumented in this encounter
--- OUTSIDE RECORDS SUMMARY | 2025-01-05 12:56 | XMS_ITS | Encounter Summary ---
Author Organization [facility] Address [address] [place] [address] Care Team Providers Care Ranch Manager Name Role Phone Unavailable Primary Care Provider Unavailabl e Encounter Details Date Type Department Care Team (Late st Contact Info) Description 01/18/2021 Transcribed Document [facility] [place] [address] [place] [address] ProviderMacrina MD [address] [place] [address] Social History Tobacco Use Types [...] Cordova MD - 01/18/2021 4:09 PM CDT Patient Education Materials Follows: Pulmonary Artery Catheterization Introduction Pulmonary artery catheterization [...] including vitamins, herbs, eye drops, creams, and [id number]-[id number] medicines. ??? Any problems you or family members have had with anesthetic medicines. ??? Any blood disorders you have. ??? Any surgeries you have had. ??? Any medical conditions you have. What are the risks? Generally, this is a safe procedure. However, problems may occur, including:??? Bruising or bleeding at the catheter insertion site. [...] restrictions. ??? Ask your health care provider about:? Changing or stopping your regular medicines. This [...] 11/16/2007 Document Revised: 12/18/2016 Document Reviewed: 07/17/2015 ? 2017 Elsevier documented in this encounter Plan of Treatment Not on file documented as of this encounter Visit Diagnoses Not on filedocumented in this encounter
--- OUTSIDE RECORDS SUMMARY | 2025-01-05 12:57 | XMS_ITS | Encounter Summary ---
Author Organization [facility] Address [address] [place] [address] Care Team Providers Care Intermodal Customer Service Name Role Phone Unavailable Primary Care Provider Unavailabl e Encounter Details Date Type Department Care Team (Late st Contact Info) Description 01/12/2021 Transcribed Document [facility] [place] [facility] [place] [address] ProviderMacrina MD [address] [place], [place] [id number] Social History Tobacco Use Types Packs/Day Years Used Date Smoking Tobacco: Never Assessed Sex and Gender Information Value Date Recorded Sex Assigned at Not on file Legal Sex Male 1:13 PM CDT Gender Identity Not on file Sexual Orientation Not on file documented as of this encounter Miscellaneous Notes * Cerner Conversion Note - Macrina Cordova MD - 01/12/2021 12:36 PM CDT Patient: JOSE ADORNO Age: 80 years Sex: Male : 1940 Associated Diagnoses: Anxiety; Cardiac tamponade; HTN (hypertension); GERD (gastroesophageal reflux disease); Mediastinal Hemorrhage; HLD (hyperlipidemia); History of Colon cancer S/P Surgery; Critical aortic stenosis; Peripheral neuropathy Author: PAVEL JONES PA Basic Information Mr. Jose Adorno is [...] 1012. 01/02/21: POD#6 Intubated and sedated on [id number]/hr and Precedex .6mcg/kg/min. He is also on [...] stronger. 01/12/2021: POD #16: Complains of insomnia Review of Systems Constitutional: Weakness. Health Status Allergies: Allergic Reactions (Selected) No Known Allergies Physical Examination VS/Measurements Vital Measurements 01/12/2021 11:47 EDT Oxygen Saturation 98 % Oxygen Therapy Mode Nasal cannula Oxygen Flow Rate 2 Liter/Min 01/12/2021 10:33 EDT Heart Rate, Apical 104 bpm HI 01/12/2021 10:00 EDT Systolic Blood Pressure 122 mmHg Diastolic Blood Pressure 81 mmHg Temperature, Fahrenheit 98.1 Deg F General: No acute distress. Respiratory: Respirations are non-labored. Breath sounds: Rhonchi present. Cardiovascular: 104 beats per minute, Regular rhythm, S1, S2, Tachycardia, No edema. Integumentary: Warm, Dry. Neurologic: Alert. Psychiatric: Cooperative, Appropriate mood & affect. Review / Management Results review: JAN 12 06:09 138 104 H 33 / H 133 4.4 29 0.70 \ JAN 12 06:09 \ L 9.6 / H 11.8 H 472 / L 29.6 \ Blood Gases (Current Encounter/Past 24 Hours) [...] 2L/NC TF 50ml/hr Continue P.T. Transfer to [facility] Pt will need rehab when clinically ready 01/11/21 POD#15 O2 91% 2L/NC TF 50ml/hr Continue P.T. Awaiting transfer to [facility] 01/12/2021 POD #16 Continues tube feedings, tolerating Steady progress Diagnosis Anxiety - Pre-Op Diagnosis, Medical. Cardiac [...]
--- OUTSIDE RECORDS SUMMARY | 2025-01-05 12:57 | XMS_ITS | Encounter Summary ---
Author Organization [facility] Address [address] [place] [address] Care Team Providers Care Bicycle Repair Technician Name Role Phone Unavailable Primary Care Provider Unavailabl e Encounter Details Date Type Department Care Team (Late st Contact Info) Description 01/13/2021 Transcribed Document [facility] [place] [facility] [place] [address] ProviderMacrina MD [address] [place] [place], [place] [id number] Social History Tobacco Use Types Packs/Day Years Used Date Smoking Tobacco: Never Assessed Sex and Gender Information Value Date Recorded Sex Assigned at Not on file Legal Sex Male 1:13 PM CDT Gender Identity Not on file Sexual Orientation Not on file documented as of this encounter Miscellaneous Notes * Cerner Conversion Note - Macrina Cordova MD - 01/13/2021 5:17 PM CDT Patient: JOSE ADORNO Age: 80 [...] 1012. 01/02/21: POD#6 Intubated and sedated on [id number]/hr and Precedex .6mcg/kg/min. He is also on [...] insomnia 01/13/2021: Postop day #17: Resting comfortably. Review of Systems Constitutional: Weakness. Health Status Allergies: Allergic Reactions (Selected) No Known Allergies Physical Examination General: No acute distress. Respiratory: Respirations are non-labored. Breath sounds: Rhonchi present. Cardiovascular: 104 beats per minute, Regular rhythm, S1, S2, Tachycardia, No edema. Integumentary: Warm, Dry. Neurologic: Alert. Psychiatric: Cooperative, Appropriate mood & affect. Review / Management Results review: JAN 13 06:45 L 135 L 101 H 33 / H 142 4.4 30 0.80 \ JAN 13 06:45 \ L 9.5 / H 11.9 H 490 / L 29.4 \ Blood Gases (Current Encounter/Past 24 Hours) [...] 2L/NC TF 50ml/hr Continue P.T. [facility] Pt will need rehab when clinically ready 01/11/21 POD#15 O2 91% 2L/NC TF 50ml/hr Continue P.T. Awaiting transfer to [facility] 01/12/2021 POD #16 Continues tube feedings, tolerating Steady progress 01/13/2021 POD #17 DC Bebe Will need rehab placement Diagnosis Anxiety - Pre-Op Diagnosis, Medical. Cardiac [...] Pre-Op Diagnosis, Medical. Electronically signed by Elmer [facility] Conversion Fluorescent Lamp Replacer Cerner at 11/10/2022 9:13 AM CDT documented in this encounter Plan of Treatment Not on file documented as of this encounter Visit Diagnoses Not on filedocumented in this encounter
--- OUTSIDE RECORDS SUMMARY | 2025-01-05 12:57 | XMS_ITS | Encounter Summary ---
Author Organization [facility] In [facility] Address [address] [place] [address] Care Team Providers Care Certified Professional Controller Name Role Phone Unavailable Primary Care Provider Unavailabl e Encounter Details Date Type Department Care Team (Late st Contact Info) Description 01/12/2021 Transcribed Document [facility] [place] [address] [place] [address] ProviderMacrina MD [address] [place], [place] [address] Social History Tobacco Use Types Packs/Day Years Used Date Smoking Tobacco: Never Assessed Sex and Gender Information Value Date Recorded Sex Assigned at Not on file Legal Sex Male 1:13 PM CDT Gender Identity Not on file Sexual Orientation Not on file documented as of this encounter Miscellaneous Notes * Cerner Conversion Note - Historical ProviderMD - 01/12/2021 5:00 PM CDT Chart Check - Review Order Profile Entered On: 01/12/2021 17:14 EDT Performed On: 01/12/2021 17:00 EDT by Dae Salcedo, RN Chart Check Powerplans Initiated/Discontinued as Appropriate : Yes All Active Orders Reviewed : Yes Dae Salcedo RN - 01/12/2021 17:14 EDT Electronically signed by Elmer [facility] Conversion Riverboat Master Cerner at 11/10/2022 9:31 AM CDT documented in this encounter Plan of Treatment Not on file documented as of this encounter Visit Diagnoses Not on filedocumented in this encounter
== END 2025-01-05 23:59 | disposition home or self-care (01) ==
LOC: RAD 10:43
PROVIDERS: PCP Family Medicine; Visit Provider Orthopaedic Surgery
DX: M16.11 Unilateral primary osteoarthritis, right hip
CPT/HCPCS: 73502

== ENCOUNTER 2025-01-16 11:41 | Outpatient (POV) | payer MEDICARE, SELFPAY ==
--- OUTSIDE RECORDS SUMMARY | 2018-07-15 07:46 | XMS_ITS | Continuity of Care Document ---
Author Name [facility] Organization [facility] Care Team Providers Care Ammonia Distiller Name Role Phone [facility] Unavailable Unavailable Problems Combined list of problems from Department of [facility] and [facility] facilities. It does not include entries that were removed or entered in error. Problem Status Onset Date Problem Type Date of Resolution Comments Source Benign hypertension Active Condition [facility] BPH - Benign prostatic hypertrophy Active Condition [facility] Carcinoma of colon Active Condition N 2015 Entered By: MELISSA AGUILLON Comment: HX OF COLON RESECTION [facility] Hyperlipidemia Active Condition [place] [facility] Medications Combined list of outpatient medications from Department of [facility] and [facility] facilities.Medications provided include 1) outpatient medications from the last 15 months, and 2) patient-reported medications. Medication Details Route Status Patient Instructions Prescription Expires Prescription Number Last Dispense Date Ordering Provider Order Date Order Qty Source ATORVASTATI N CA 40MG TAB TAKE ONE-HALF TABLET BY MOUTH DAILY ORAL ACTIVE MIRACLE CARSON IN 2017 [place] [facility] FISH OIL 1000MG (500MG DHA/EPA) CAP,ORAL TAKE 2 CAPSULES BY MOUTH DAILY ORAL ACTIVE KAMARI AGUILLON 2015 [place] [facility] LISINOPRIL 20MG TAB TAKE ONE-HALF TABLET BY MOUTH TWICE A DAY ORAL ACTIVE MIRACLE CARSON IN C 2017 [place] [facility] METOPROLOL SUCCINATE 25MG TAB,SA TAKE ONE-HALF TABLET BY MOUTH DAILY ORAL ACTIVE MIRACLE CARSON IN 2017 [place] [facility] Immunizations Combined list of available immunizations from the Department of [facility] and [facility] facilities. Immunization Series Date Given Administered By Site Reaction Lot Number CVX Code Drug Video News Editor Status Comments Source TDAP (HISTORICAL) 2013 115 complet ed [place] [facility] Social History Combined list of available smoking, tobacco, and other social history from Department of Defense and Veterans Affairs facilities. Social History Type Response Date Comment [facility] e Tobacco smoking status [facility] VA-TOBACCO NEVER USED 07/15/2018 [facility] History of tobacco use V9 LIFETIME NON-USER OF TOBACCO 06/26/2017 [facility] History of tobacco use V9 LIFETIME NON-USER OF TOBACCO 06/05/2016 [facility] History of tobacco use V9 LIFETIME NON-USER OF TOBACCO 05/30/2015 [facility]
--- OUTSIDE RECORDS SUMMARY | 2025-01-16 11:43 | XMS_ITS | Encounter Summary ---
Author Organization [employer] Address [address] [place] [address] Care Team Providers Care Distillery Miller Name Role Phone Unavailable Primary Care Provider Unavailabl e Encounter Details Date Type Department Care Team (Late st Contact Info) Description 01/04/2021 Transcribed Document [facility] [place] [address] [place] [address] ProviderMacrina MD [address] [place] [address] Social History Tobacco Use Types Packs/Day Years Used Date Smoking Tobacco: Never Assessed Sex and Gender Information Value Date Recorded Sex Assigned at Not on file Legal Sex Male 1:13 PM CDT Gender Identity Not on file Sexual Orientation Not on file documented as of this encounter Miscellaneous Notes * Cerner Conversion Note - Macrina ProviderMD - 01/04/2021 9:00 AM CDT NIH Stroke Scale *Q Entered On: 01/04/2021 19:32 EDT Performed On: 01/04/2021 9:00 EDT by JAMES Inman RN NIH Stroke Scale *Q NIH Assessment Interval : Baseline Time of Assessment : 01/04/2021 9:00 EDT [facility] Clinician Administering Scale : JAMES Inman RN NIH Level of Consciousness (1A) : Alert NIH LOC Questions (1B) : Answers neither question correctly NIH LOC Commands (1C) : Performs both tasks correctly NIH Best Gaze (2) : Normal NIH Visual (3) : No visual loss NIH Facial Palsy (4) : Normal symmetrical movements NIH Motor Arm, Left (5A) : No drift NIH Motor Arm, Right (5B) : Drift NIH Motor Leg, Left (6A) : No drift NIH Motor Leg, Right (6B) : No drift NIH Limb Ataxia (7) : Present in one limb NIH Sensory (8) : Normal NIH Best Language (9) : No aphasia NIH Dysarthria (10) : UN - Intubated or other physical barrier Extinction and Inattention (11) : No abnormality NIH Scale Score : 4 JAMES Inman RN - 01/04/2021 19:28 EDT documented in this encounter Plan of Treatment Not on file documented as of this encounter Visit Diagnoses Not on filedocumented in this encounter
--- OUTSIDE RECORDS SUMMARY | 2025-01-16 11:43 | XMS_ITS | Encounter Summary ---
Author Organization [employer] [facility] Address [address] [place] [address] Care Team Providers Care Dip Dyer Name Role Phone Unavailable Primary Care Provider Unavailabl e Encounter Details Date Type Department Care Team (Late st Contact Info) Description 12/31/2020 Transcribed Document [facility] [place] [address] [place] [address] ProviderMacrina MD [address] [place] [address] Social History Tobacco Use Types Packs/Day Years Used Date Smoking Tobacco: Never Assessed Sex and Gender Information Value Date Recorded Sex Assigned at Not on file Legal Sex Male 1:13 PM CDT Gender Identity Not on file Sexual Orientation Not on file documented as of this encounter Miscellaneous Notes * Cerner Conversion Note - Macrina ProviderMD - 12/31/2020 11:41 AM CDT Clinical Dietitian Note Entered On: 12/31/2020 11:41 EDT Performed On: 12/31/2020 11:41 EDT by Tamy Wolff Dietitian Clinical Dietitian Note Clinical Dietitian Note : 12/31: RD consult rec'd to start TF. Pt has remains intubated, but off sedation. No pressors. Plans for SBT's today with possible extubation. Per CTS note, plans to place corpak and start TF today. Pulmonary aware and want corpak placed prior to extubation if possible. Est needs: 1600-1800kcal (25-28kcal/kg); 78g PRO (1.2g/kg) Dietitian Recommendations : 1. Place corpak and start Osmolite 1.5 @ 20 ml/hr AAT to goal at 50ml/hr + 1 [id number] daily (provides 1710kcal, 83g PRO). Goal: meet est needs 2. If able to extubate today, start PO diet as feasible (cardiac diet). RD to provide appropriate ONS. goal: safe PO 3. Monitor elytes and replace prn Goal: wnls 4. Obtain wt 2x weekly goal: avoid sig wt changes Risk: High Tamy Wolff, Dietitian - 12/31/2020 11:41 EDT documented in this encounter Plan of Treatment Not on file documented as of this encounter Visit Diagnoses Not on filedocumented in this encounter
--- OUTSIDE RECORDS SUMMARY | 2025-01-16 11:43 | XMS_ITS | Encounter Summary ---
Author Organization [employer] Address [address] [place] [address] Care Team Providers Care Speech Language Therapist Name Role Phone Unavailable Primary Care Provider Unavailabl e Encounter Details Date Type Department Care Team (Late st Contact Info) Description 12/31/2020 Transcribed Document [address] [id number] Abby Rodrigues MD [address] [place] [address] Social History Tobacco Use Types Packs/Day Years Used Date Smoking Tobacco: Never Assessed Sex and Gender Information Value Date Recorded Sex Assigned at Not on file Legal Sex Male 1:13 PM CDT Gender Identity Not on file Sexual Orientation Not on file documented as of this encounter Miscellaneous Notes * Cerner Conversion Note - Abby Rodrigues MD - 12/31/2020 9:01 AM EDT Patient: JOSE ADORNO Age: 80 years Sex: Male : 1940 Associated Diagnoses: None Author: ABBY RODRIGUES MD-CAR Basic Information PCP: Robert Batista MD Primary Personal Injury Specialist: Arthur Gomez MD Subjective Patient seen and examined at the bedside in the intensive care unit. Awake follows commands. No events overnight. Health Status Current medications: Home Medications (6) Active amLODIPine 5 mg, Oral, Daily atorvastatin 20 mg oral tablet , Oral, At Bedtime gabapentin 300 mg, Oral, Daily gabapentin 600 mg, Oral, At Bedtime lisinopril 10 mg oral tablet 10 mg = 1 Tab, Oral, BID PriLOSEC 10 mg, Oral, BID , Medications (45) Active Scheduled: (14) #NaCl 0.9% [...] mg inj 40 mg, IV Push, Daily senna 8.6 mg tab 17.2 mg 2 [...] Intake and Output 24 hour intake: Total 2,710 ml 24 hour output: Total 23,959 ml VS/Measurements Vitals Signs (last 24 hrs) Last Charted Minimum Maximum Apical HR 88 (DEC 30 20:19) 82 (DEC 30 10:30) 88 (DEC 30 20:19) Mon HR 81 (DEC 31 06:00) 76 (DEC 30 23:00) 98 (DEC 30 18:00) Resp Rate H 21 (DEC 31 06:00) L 0 (DEC 31 04:30) H 28 (DEC 30 18:00) SBP H 151 (DEC 31 06:00) 127 (DEC 30 23:00) H 160 (DEC 30 18:00) DBP 72 (DEC 31 06:00) 61 (DEC 30 20:00) 74 (DEC 31 05:00) MAP 104 (DEC 31:00) 87 (DEC 30 09:00) 104 (DEC 31 05:00) SpO2 99 (DEC 31 06:00) 94 (DEC 30 11:00) 100 (DEC 31 04:30) General: Intubated/Sedated. Eye: Normal conjunctiva. HENT: Normocephalic. Respiratory: Symmetrical chest wall expansion. Breath sounds: Bilateral, Rhonchi present. Support: Ventilator. Cardiovascular: Normal rate, Regular rhythm, Good pulses equal in all extremities. Gastrointestinal: Soft, Non-distended, Normal bowel sounds. Genitourinary: indwelling rocha catheter. Musculoskeletal: No deformity. Integumentary: Warm, Dry, Incision site: C/D/I. Neurologic: Intubated/Sedated. Psychiatric: Intubated/Sedated. Results Review DEC 31 01:52 142 107 H 29 / H 119 L 3.0 28 0.70 \ DEC 31 01:52 \ L 8.4 / H 13.4 L 108 / L 25.8 \ Radiology Results (Last 48 hours) [id number] -- 12/27/2020 06:39 CT Chest WO (12/29/2020 11:49) Result: CT [...] Mild improvement of pleural effusions and atelectasis CR Chest 1 Vw Portable (12/31/2020 04:24) Result: PORTABLE CHEST 12/31/2020 4:00 AM HISTORY: Pleural effusion.COMPARISON: December 30, 2020.FINDINGS: ET tube tip terminates approximately 5 cm superior to thecarina. Right IJ catheter tip remains within the SVC. There is alarge-bore right-sided chest tube. The heart is moderately enlarged. The mediastinum is unremarkable . There is left lower lobeconsolidation. There is a moderate right and small left pleuraleffusion. Pleural effusions have increased. There is no pneumothorax .The osseous structures are unremarkable . IMPRESSION: Left lower lobe consolidation with increasing pleuraleffusions. Images reviewed, interpreted, and dictated by Dr. Sonny Alva.Transcribed by [place] PA-C, RBeatriceT. (N), Kieran Bishop T.I have personally viewed, [...] and Plan IMPRESSION: Aortic stenosis, severe 11/15/19 -C no obstructive disease. BAV 09/19/19 - ECHO EF 40%. severe aortic stenosis peak P mean P.83 s/p TAVR 12/27/2020. Apical perforation/Acute tamponade s/p pericardiocentesis and surgical repain of LV Lapel. PEA Arrest; CODE called 10 minutes to ROSC Mediastinal hemorrhage/Cardiac tamponade s/p emergent sternotomy; repair of left ventricular teat 12/27/2020 - Mechanical vent placed during surgery acute blood loss anemia s/p multiple blood products including 4 units of PRBCs, cryoprecipitate, platelets, and fresh frozen plasma Hypertension Nonischemic cardiomyopathy Neurologic changes awaiting CT PLAN; 12/31/2020 Trying to extubate today. Continue supportive [...]
--- OUTSIDE RECORDS SUMMARY | 2025-01-16 11:43 | XMS_ITS | Encounter Summary ---
Author Organization [facility] Address [address] [place] [address] Care Team Providers Care Cottrell Operator Name Role Phone Unavailable Primary Care Provider Unavailabl e Encounter Details Date Type Department Care Team (Late st Contact Info) Description 01/04/2021 Transcribed Document [facility] [place] Family Medicine [address] [place] [address] ProviderMacrina MD [address] [place] [address] Social History Tobacco Use Types Packs/Day Years Used Date Smoking Tobacco: Never Assessed Sex and Gender Information Value Date Recorded Sex Assigned at Not on file Legal Sex Male 1:13 PM CDT Gender Identity Not on file Sexual Orientation Not on file documented as of this encounter Miscellaneous Notes * Cerner Conversion Note - Macrina ProviderMD - 01/04/2021 3:00 AM CDT Nutrition Assessment Entered On: 01/04/2021 11:32 EDT Performed On: 01/04/2021 12:19 EDT by Tamy Wolff Dietitian Nutrition Assessment Current Nutrition Regimen Comment : 01/04: high f/up. Pt remains intubated and sedated. TF running @ goal (50ml/hr) and tolerating. Plans for bronch today. Pt has not had +BM since 12/31-bowel regimen is being adjusted. 01/01: Pt was extubated yesterday and re-intubated this morning. Currently not requiring any pressors. RN reports possibility of propofol being added. Corpak placed terminating in duodenum. TF restarted at 20ml/hr this morning. 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, cardiogenic shock, acute blood loss anemia, metabolic acidosis PMH: severe , nonischemic cardiomyopathy, HTN, colon resection, inguinal hernia repair, herman Labs: Glu 130, BUN 25, Alb 2.3, Tbil 1.5, Phos 2.4, FSBG 129/122/128 Meds: statin, docusate, SSI, lactobacillus, abx, PPI, miralax, movantik, KPhos, senna Drips: precedex, fentanyl GI: LBM /, +BS, +corpak (2nd portion of duodenum) Skin: chest incisions; anasarca Diet: NPO TF: Osmolite 1.5 @ 50ml/hr + 1 proteinex Ht: 68 Wt: 65.14kg/143# (admit), 77.3kg (12/28), 74.2kg (01/01), no new wt (01/04) Wt hx: 141# (11/15/19), 146# (12/03/20) BMI: 22 IBW: 70kg (93% IBW) Est needs: 1600-1800kcal (25-28kcal/kg) 78g PRO (1.2g/kg) Tamy Wolff Dietitian - 01/04/2021 12:18 EDT Nutrition Assessment Reason : Follow Up Tamy Wolff Dietitian - 01/04/2021 11:32 EDT Nutrition Diagnoses Oral or Nutrition Support Intake : Inadequate oral intake Oral or Nutr Support Intake Related To : resp fxn +vent Oral or Nutr Support Intake Evidenced by : NPO; need for EN Oral or Nutrition Support Intake Status : Active Tamy Wolff Dietitian - 01/04/2021 12:18 EDT Nutrition Interventions Enteral/Parenteral Nutrition : Continue current enteral nutrition regimen Tamy Wolff Dietitian - 01/04/2021 12:18 EDT Monitoring/Evaluation Enteral Nutrition Intake : Formula/Solution, Feeding tube flush, Tube Feeding Tolerance Weight Status : Weight Maintanence Gastrointestinal Function : Bowel Function Tamy Wolff Dietitian - 01/04/2021 12:18 EDT Nutrition Recommendations Dietitian Recommendations : 1. Continue Osmolite 1.5 @ 50ml/hr + 1 [id number] daily (provides 1710kcal, 83g PRO). FW per MD. Goal: meet est needs 2. Monitor elytes and replace prn Goal: wnls 3. Obtain wt 2x weekly goal: avoid sig wt changes 4. Monitor bowel fxn and adjust bowel regimen prn goal: +BM Risk: High Nutrition Care Level : High Tamy Wolff Dietitian - 01/04/2021 12:18 EDT Electronically signed by [facility] Conversion Canine Deputy Cerner at 11/10/2022 9:17 AM CDT documented in this encounter Plan of Treatment Not on file documented as of this encounter Visit Diagnoses Not on filedocumented in this encounter
--- OUTSIDE RECORDS SUMMARY | 2025-01-16 11:43 | XMS_ITS | Encounter Summary ---
Author Organization [facility] Address [address] [place] [address] Care Team Providers Care Bracelet Former Name Role Phone Unavailable Primary Care Provider Unavailabl e Encounter Details Date Type Department Care Team (Late st Contact Info) Description 01/04/2021 Transcribed Document [facility] [place] [facility] [place] [address] ProviderMacrina MD [address] [place], [place] [id number] Social History Tobacco Use Types Packs/Day Years Used Date Smoking Tobacco: Never Assessed Sex and Gender Information Value Date Recorded Sex Assigned at Not on file Legal Sex Male 1:13 PM CDT Gender Identity Not on file Sexual Orientation Not on file documented as of this encounter Miscellaneous Notes * Cerner Conversion Note - Macrina Cordova MD - 01/04/2021 9:43 AM CDT Patient: JOSE ADORNO Age: 80 [...] 1012. 01/02/21: POD#6 Intubated and sedated on [id number]/hr and Precedex .6mcg/kg/min. He is also on [...] ball with right hand today on command. Health Status Allergies: Allergic Reactions (Selected) No Known Allergies Physical Examination Intake and Output 24 hour intake: Total 2315 ml 24 hour output: Urinary catheter 3045 ml, Total 3155 ml MT 0ml and Right CT 0ml / 12 hrs VS/Measurements Vital Measurements 01/04/2021 9:28 EDT Heart Rate Monitored 70 bpm Oxygen Saturation 98 % Oxygen Therapy Mode Mechanical ventilation 01/04/2021 6:00 EDT Systolic Blood Pressure 125 mmHg Diastolic Blood Pressure 65 mmHg Mean Arterial Pressure (MAP)-BMDI 90 Temperature Source Bladder Temperature Mode Fahrenheit Temperature, Celsius 38 Deg C Clinical Temperature, F 100.4 Deg F FiO2 40 % General: Intubated and arouses, follows simple commands. HENT: Normocephalic. Neck: Supple. Respiratory: Breath sounds: Rhonchi present. Cardiovascular: Normal rate, 70 beats per minute, Regular rhythm, S1, S2, No edema. Gastrointestinal: Soft, Non-distended, Normal bowel sounds. Integumentary: Warm, Dry, T[place]man. Neurologic: The pt is able to move both his left and right side with right being weaker than the left. . Psychiatric: Cooperative. Review / Management Results review: JAN 04 04:14 145 112 H 25 / H 130 4.1 29 0.80 \ JAN 04 04:14 \ L 7.3 / 8.0 L 143 / L 23.4 \ Blood Gases (Current Encounter/Past 24 Hours) pH Art 7.46 HI 01/04/2021 08:09 pCO2 Art 40.0 01/04/2021 05:03 pO2 Art 75.6 LOW 01/04/2021 08:09 HCO3 Art 28.7 HI 01/04/2021 08:09 BE Art 4.5 HI 01/04/2021 08:09 sO2 Art 96.5 01/04/2021 05:03 tHb Art 8.0 LOW 01/04/2021 08:09 FHHb 3.4 NA 01/04/2021 05:03 ctO2 10.7 NA 01/04/2021 05:03 FIO2 Art 40 NA 01/04/2021 05:03 Delivery Device Type Art Ventilator NA 01/04/2021 05:03 Temperature, F Art 98.6 NA 01/04/2021 05:03 Art Blood Gas (ABG) Site Right Radial NA 01/04/2021 05:03 Acceptable Grey's Test Art Acceptable NA 01/04/2021 05:03 Ventilator Mode Art AC NA 01/04/2021 05:03 Tidal Volume Set Art 440.0 NA 01/04/2021 05:03 Set Rate Art 14.0 NA 01/04/2021 05:03 Respiratory Rate Art 19.0 NA 01/04/2021 05:03 CPAP/PEEP Art 8.0 NA 01/04/2021 05:03 ABG Num of Draw Attempts 1 NA 01/04/2021 05:03 PaO2/FiO2 calculated 189 NA 01/04/2021 05:03 Coagulation Results (Current Encounter/Past 24 Hours) No [...] the pt tolerated well SBT later today Diagnosis Anxiety - Pre-Op Diagnosis, Medical. [...]
--- OUTSIDE RECORDS SUMMARY | 2025-01-16 11:43 | XMS_ITS | Encounter Summary ---
Author Organization [employer] [facility] Address [address] [place] [address] Care Team Providers Care Yard Manager Name Role Phone Unavailable Primary Care Provider Unavailabl e Encounter Details Date Type Department Care Team (Late st Contact Info) Description 01/04/2021 Transcribed Document [facility] [place] [address] [place] [address] ProviderMacrina MD [address] [place] [address] Social History Tobacco Use Types Packs/Day Years Used Date Smoking Tobacco: Never Assessed Sex and Gender Information Value Date Recorded Sex Assigned at Not on file Legal Sex Male 1:13 PM CDT Gender Identity Not on file Sexual Orientation Not on file documented as of this encounter Miscellaneous Notes * Cerner Conversion Note - Macrina Cordova MD - 01/04/2021 9:50 AM CDT Patient: JOSE ADORNO Age: 80 years Sex: Male : 1940 Associated Diagnoses: None Author: ANANDA QUILES MD-ZURDO Subjective Pt is alert and responsive on vent; on low dose sedation. He is able to indicate that his mouth hurts by gesturing with left hand; able to shake/nod head appropriately to questions Objective VS/Measurements Vital Signs/Vital Measures 01/04/2021 9:28 EDT Heart Rate Monitored 70 bpm 01/04/2021 6:00 EDT Systolic Blood Pressure 125 mmHg Diastolic Blood Pressure 65 mmHg Clinical Temperature, F 100.4 Deg F General: Pt is awake and alert, appropriately responsive with gestures and shaking/nodding head. He followed all commands in all extremities; ongoing improvement in right side strength. Eye: Pupils are equal, round and reactive to light, Left gaze preference, will look midline but not past. Respiratory: intubated. Cardiovascular: Normal rate, Regular rhythm. Neurologic: CN grossly intact, facial movements not easily evaluated due to ET tube but does have right neglect. He has 5/5 strength on left; now able to raise right arm against gravity but does have drift. Strength appears nearly equal in BLE. Psychiatric: Cooperative. Results Review Labs reviewed; Hct 7.3 Impression and Plan 80yo M with h/o severe aortic stenosis, s/p TAVR on 12/27 with post-op complications including cardiac arrest, pericardial hemorrhage causing tamponade and ongoing respiratory failure. 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 He has improved significantly throughout the week with right side weakness; remains very alert on ventilator. Plan for possible bronch and extubation today if he tolerates; I have discussed with bedside nurse and Dr Navarro. He is on aspirin, will continue. Continue PT/OT as tolerated, speech therapy when appropriate following extubation. I discussed with yesterday in room as well. Neurology will continue to follow, will see as time permits over the weekend. documented in this encounter Plan of Treatment Not on file documented as of this encounter Visit Diagnoses Not on filedocumented in this encounter
--- OUTSIDE RECORDS SUMMARY | 2025-01-16 11:43 | XMS_ITS | Encounter Summary ---
Author Organization [facility] Address [address] [place] [address] Care Team Providers Care Pharmacy Graduate Intern Name Role Phone Unavailable Primary Care Provider Unavailabl e Encounter Details Date Type Department Care Team (Late st Contact Info) Description 01/16/2021 Transcribed Document [facility] [place] [address] [place] [address] ProviderMacrina MD [address] [place], [place] [id number] Social History Tobacco Use Types Packs/Day Years Used Date Smoking Tobacco: Never Assessed Sex and Gender Information Value Date Recorded Sex Assigned at Not on file Legal Sex Male 1:13 PM CDT Gender Identity Not on file Sexual Orientation Not on file documented as of this encounter Miscellaneous Notes * Cerner Conversion Note - Historical ProviderMD - 01/16/2021 5:00 PM CDT Chart Check - Review Order Profile Entered On: 01/16/2021 15:02 EDT Performed On: 01/16/2021 17:00 EDT by Pavel Rizvi, Distance Education Teacher-Student Nurse Chart Check Powerplans Initiated/Discontinued as Appropriate : Not applicable All Active Orders Reviewed : Yes Pavel Rizvi, Distance Education Teacher-Student Nurse - 01/16/2021 15:02 EDT Electronically signed by [facility] Conversion Wastewater Supervisor Cerner at 11/10/2022 9:04 AM CDT documented in this encounter Plan of Treatment Not on file documented as of this encounter Visit Diagnoses Not on filedocumented in this encounter
--- OUTSIDE RECORDS SUMMARY | 2025-01-16 11:43 | XMS_ITS | Encounter Summary ---
Author Organization [facility] Address [address] [place] [address] Care Team Providers Care Wic Site Coordinator Name Role Phone Unavailable Primary Care Provider Unavailabl e Encounter Details Date Type Department Care Team (Late st Contact Info) Description 12/31/2020 Transcribed Document [facility] [place] [address] [place] [address] ProviderMacrina MD [address] [place], [place] [id number] Social History Tobacco Use Types Packs/Day Years Used Date Smoking Tobacco: Never Assessed Sex and Gender Information Value Date Recorded Sex Assigned at Not on file Legal Sex Male 1:13 PM CDT Gender Identity Not on file Sexual Orientation Not on file documented as of this encounter Miscellaneous Notes * Cerner Conversion Note - Historical ProviderMD - 12/31/2020 6:57 PM CDT Spiritual Care Assessment Entered On: 12/31/2020 18:58 EDT Performed On: 12/31/2020 18:57 EDT by LAVERN VALDIVIA Chaplain General Information Initial Visit : No Referred by : follow-up Ministry Provided to : Family/Significant other Ministry Comment/Summary Points : follow up visit, providing continued conversation and support for patient's , Evelia Box. will continue to follow as possible. LAVERN VALDIVIA Chaplain - 12/31/2020 18:57 EDT documented in this encounter Plan of Treatment Not on file documented as of this encounter Visit Diagnoses Not on filedocumented in this encounter
--- OUTSIDE RECORDS SUMMARY | 2025-01-16 11:43 | XMS_ITS | Encounter Summary ---
Author Organization [employer] [facility] Address [address] [place] [id number] Care Team Providers Care General Counselor Name Role Phone Unavailable Primary Care Provider Unavailabl e Encounter Details Date Type Department Care Team (Late st Contact Info) Description 01/16/2021 Transcribed Document [facility] [place] Medicine [address] [place] [address] ProviderMacrina MD [address] [place] [address] Social History Tobacco Use Types Packs/Day Years Used Date Smoking Tobacco: Never Assessed Sex and Gender Information Value Date Recorded Sex Assigned at Not on file Legal Sex Male 1:13 PM CDT Gender Identity Not on file Sexual Orientation Not on file documented as of this encounter Miscellaneous Notes * Cerner Conversion Note - Macrina Cordova MD - 01/16/2021 8:08 AM CDT Patient: JOSE ADORNO Age: 80 Years Sex: Male : 1940 Assessment/Plan 80-year-old man who 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 This required emergent sternotomy and repair. During this time was critically ill and underwent cardiopulmonary resuscitation. Has some residual dysphagia. Currently being fed via a postpyloric feeding tube. PEG tube was requested to facilitate ongoing rehabilitation. Planning repeat modified barium today. If still recommendation for nothing by mouth could proceed with PEG tomorrow. Holding antiplatelets. VTE Prophylaxis - Medical Enoxaparin 40 mg, SubCutaneous, Inj, Daily, Start 01/10/21 11:00:00 EDT (FRANDY CARSON PA) Sequential Compression Device Start: 12/27/20 18:03:00 EDT, Bilateral, Continuous Order (EMEKA MADERA MD-CAT) Subjective no events overnight Vital Signs T: 36.4 ??C TMIN: 36.4 ??C TMAX: 36.7 ??C HR: 93(Monitored) RR: 20 BP: 105/63 SpO2: 96% Oxygen Settings (Last) Oxygen Therapy Mode: Nasal cannula (01/15/21 21:38:00) Oxygen Flow Rate: 2 Liter/Min (01/15/21 21:38:00) Intake & Output Totals Last 24 Hours (7a-7a) Input Total: 684 mL Output Total: 1600 mL Balance: -916 mL Physical Exam comfortable in bed, regular rate and rhythm, Corpak in place with tube feeds running, healed sternotomy incision Medications acetaminophen-HYDROcodone 325 mg-5 mg oral tablet, 2 Tab, Oral, Q4H, PRN albumin human 5% intravenous solution, 12.5 Gram= 250 mL, IntraVENous, Daily, PRN atorvastatin, 40 mg= 1 Tab, Oral, At Bedtime bumetanide, 0.5 mg= 2 mL, IV Push, BID Dextrose, 25 Gram= 50 mL, IV Push, 1-Time, PRN docusate sodium, 100 mg= 10 mL, Oral, BID, PRN Dulcolax Laxative, 10 mg= 1 Supp, Rectal, Daily, PRN DuoNeb 0.5 mg-2.5 mg/3 mL inhalation solution, 3 mL, Nebulized Inhalation , RT_Q4H, PRN gabapentin, 600 mg= 1 Tab, Oral, At Bedtime gabapentin, 300 mg= 1 Cap, Oral, Daily hydrALAZINE, 10 mg= 0.5 mL, IV Push, Q6H, PRN insulin regular 50 kg - 75 kg, 50 kg - 75 kg scale, SubCutaneous, Q6H Lexapro, 10 mg= 1 Tab, Oral, Daily lisinopril, 5 mg= 1 Tab, Oral, BID Lopressor, 50 mg= 1 Tab, Oral, BID Lovenox, 40 mg= 0.4 mL, SubCutaneous, Daily Magic Mouthwash, 5 mL, Oral, AC and at Bedtime melatonin, 3 mg= 1 Tab, Oral, At Bedtime Milk of Magnesia 8% oral suspension, 30 mL, Oral, Daily, PRN MiraLax, 17 Gram= 1 Packet, Oral, Daily, PRN Mucinex, 200 mg= 10 mL, Oral, Q6H Nitrostat, 0.4 mg= 1 Tab, SubLINgual, Q5Min, PRN Normal Saline Flush, 10 mL, IV Push, Q8H Normal Saline Flush, 10 mL, IV Push, See Comment, PRN Normal Saline Flush, 10 mL, IV Push, See Comment, PRN Normal Saline Flush, 10 mL, IV Push, Q12H oxyCODONE, 5 mg= 1 Tab, Oral, Q6H, PRN Pepcid, 20 mg= 1 Tab, Oral, Daily potassium chloride 10 mEq/50 mL intravenous solution, 10 mEq= 50 mL, IV Piggyback, Q1H, PRN senna, 8.8 mg= 5 mL, Oral, BID, PRN sodium bicarbonate, 50 mEq= 50 mL, IV Push, 1-Time, PRN sodium bicarbonate, 100 mEq= 100 mL, IV Push, 1-Time, PRN traZODone, 25 mg= 0.5 Tab, Oral, At Bedtime Tylenol, 650 mg= 2 Tab, Oral, Q4H, PRN Zofran, 4 mg= 2 mL, IV Push, Q4H, PRN Lab Results Test Name Test Result Date/Time Sodium Level 132 mmol/L (Low) 01/16/2021 04:16 EDT Potassium Level 4.7 mmol/L 01/16/2021 04:16 EDT Chloride Level 99 mmol/L (Low) 01/16/2021 04:16 EDT Carbon Dioxide Level 29 mmol/L 01/16/2021 04:16 EDT Anion Gap 9 01/16/2021 04:16 EDT Glucose Level 95 mg/dL 01/16/2021 04:16 EDT Blood Urea Nitrogen 43 mg/dL (High) 01/16/2021 04:16 EDT Creatinine Level 0.80 mg/dL 01/16/2021 04:16 EDT eGFR >60 mL/min/1.73m2 01/16/2021 04:16 EDT eGFR NonAfrican >60 mL/min/1.73m2 01/16/2021 04:16 EDT Bun/Creatinine 53.8 (High) 01/16/2021 04:16 EDT Calcium Level 8.9 mg/dL 01/16/2021 04:16 EDT Device Comment 1 Notified Nurse RBV 01/16/2021 06:08 EDT Device Comment 1 Protocols Followed 01/16/2021 05:35 EDT Device Comment 1 Protocols Followed 01/15/2021 23:45 EDT Device Comment 1 Notified Nurse RBV 01/15/2021 18:24 EDT Device Comment 1 Notified Nurse RBV 01/15/2021 12:01 EDT Glucose POC2 133 mg/dL (High) 01/16/2021 06:08 EDT Glucose POC2 121 mg/dL (High) 01/16/2021 05:35 EDT Glucose POC2 121 mg/dL (High) 01/15/2021 23:45 EDT Glucose POC2 127 mg/dL (High) 01/15/2021 18:24 EDT Glucose POC2 141 mg/dL (High) 01/15/2021 12:01 EDT WBC 10.3 K/uL (High) 01/16/2021 04:16 EDT RBC 3.68 Million/uL (Low) 01/16/2021 04:16 EDT Hgb 10.7 g/dL (Low) 01/16/2021 04:16 EDT Hct 32.9 % (Low) 01/16/2021 04:16 EDT MCV 89.4 fL 01/16/2021 04:16 EDT MCH 29.1 pg 01/16/2021 04:16 EDT MCHC 32.5 Gram/dL 01/16/2021 04:16 EDT Platelet Count 517 K/uL (High) 01/16/2021 04:16 EDT MPV 11.3 fL 01/16/2021 04:16 EDT RDW 13.5 % 01/16/2021 04:16 EDT Slide Review No 01/16/2021 04:16 EDT documented in this encounter Plan of Treatment Not on file documented as of this encounter Visit Diagnoses Not on filedocumented in this encounter
--- OUTSIDE RECORDS SUMMARY | 2025-01-16 11:44 | XMS_ITS | Encounter Summary ---
Author Organization [facility] Address [address] [place] [address] Care Team Providers Care Boom Conveyor Operator Name Role Phone Unavailable Primary Care Provider Unavailabl e Encounter Details Date Type Department Care Team (Late st Contact Info) Description 12/31/2020 Transcribed Document [facility] [place] [address] [place] [address] ProviderMacrina MD [address] [place], [place] [id number] Social History Tobacco Use Types Packs/Day Years Used Date Smoking Tobacco: Never Assessed Sex and Gender Information Value Date Recorded Sex Assigned at Not on file Legal Sex Male 1:13 PM CDT Gender Identity Not on file Sexual Orientation Not on file documented as of this encounter Miscellaneous Notes * Cerner Conversion Note - Historical ProviderMD - 12/31/2020 2:00 AM CDT Representative Phlebotomy Services Details Entered On: 12/31/2020 3:31 EDT Performed On: 12/31/2020 2:00 EDT by PEEWEE SMITH RN Order Details Transport Mode Order Detail : Portable Isolation Precautions Order Detail : Standard Precautions Order Detail : N/A IV Order Detail : 1 Oxygen Order Detail : 1 Nurse Collect Order Detail : 1 Lift/Transfer : Maximal assist Central Line Order Detail : Yes Room Service : Not Appropriate Arterial Line : No Patient Needs Meds Crushed/Liquid : Yes Meds Administered Via Tube : Yes PEEWEE SMITH RN - 12/31/2020 3:31 EDT documented in this encounter Plan of Treatment Not on file documented as of this encounter Visit Diagnoses Not on filedocumented in this encounter
--- OUTSIDE RECORDS SUMMARY | 2025-01-16 11:44 | XMS_ITS | Encounter Summary ---
Author Organization [facility] Address [address] [place] [address] Care Team Providers Care Polisher Apprentice Name Role Phone Unavailable Primary Care Provider Unavailabl e Encounter Details Date Type Department Care Team (Late st Contact Info) Description 01/16/2021 Transcribed Document [facility] [place] Medicine [facility] [place] [address] ProviderMacrina MD [address] [place] [address] Social History Tobacco Use Types Packs/Day Years Used Date Smoking Tobacco: Never Assessed Sex and Gender Information Value Date Recorded Sex Assigned at Not on file Legal Sex Male 1:13 PM CDT Gender Identity Not on file Sexual Orientation Not on file documented as of this encounter Miscellaneous Notes * Cerner Conversion Note - Macrina Cordova MD - 01/16/2021 1:17 PM CDT Patient: JOSE ADORNO Age: 80 [...] epinephrine, bicarb, and calcium. He was on Jimmie and Vaso at that time. ROSC was [...] 0.5 MCG/KG/. Awake and following commands, positive lunchroom monitor in bilateral hands. MRI brain yesterday revealed [...] 180s. 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; broke man and moves extremities bilaterally but weaker on [...] being adjusted, pt has required low dose jimmie. Pt is + 1.2L/24 hours. TM 100.2. [...] balance. WBC 13.5, low grade fever 99.3 : Patient was seen and examined today laying comfortably in bed no overnight issues, no complaints. Vitals reviewed satting well on 2 L, no fever. Labs and images reviewed sodium 133 potassium 4.5, white cell count trending down 11.3. Chest x-ray reviewed stable. 01/15 Pt is resting in bed on 2L, reports he remains weak but did get out of bed to chair today. He reports he is fatigued bc continues to not sleep well HS, otherwise no issues. Has TF per jovany pt reports PEG has been discussed with him. 01/16: Patient was seen and examined today, laying comfortably in bed. Vitals reviewed stable not in acute distress. Sat well on 2 L. Labs and images reviewed. White cell count trending down. POST Vent day: 5, extubated 12/31/20 Reintubated 01/01/21, extubated 01/05 PICC Intake & Output Totals Last 24 Hours (7a-7a) Intake (24 Events) Medications (84 mL) Enteral Feeding Amount (600 mL) Output (3 Events) Spence Catheter (1600 mL) Input Total: 684 mL Output Total: 1600 mL Balance: -916 mL Review of Systems Constitutional: Weakness, Fatigue. Eye: No visual disturbances. Ear/Nose/Mouth/Throat: Negative. Respiratory: No shortness of breath, No cough, No sputum production. Cardiovascular: denies chest pain. Gastrointestinal: No nausea, No vomiting. Genitourinary: No dysuria. Musculoskeletal: negative. Integumentary: No rash. Neurologic: Alert and oriented X4. Psychiatric: Negative. All other systems. Health Status Allergies: Allergic Reactions (Selected) No Known Allergies, No qualifying data available Current medications: (Selected) Inpatient Medications Ordered Dextrose: 25 Gram, IV Push, 1-Time, PRN: Hypoglycemia Dulcolax Laxative: 10 mg, Rectal, Daily, PRN: Constipation DuoNeb 0.5 mg-2.5 mg/3 mL inhalation solution: 3 mL, Nebulized Inhalation, RT_Q4H, PRN: Shortness of Breath Lexapro: 10 mg, Oral, Daily Lopressor: 50 mg, Oral, BID Lovenox: 40 mg, SubCutaneous, Daily Magic Mouthwash: 5 mL, Oral, AC and at Bedtime Milk of Magnesia 8% oral suspension: [...] mL, IntraVENous, Daily, PRN: Other (See Comment) atorvastatin: 40 mg, Oral, At Bedtime bumetanide: 0.5 mg, IV Push, BID docusate sodium: 100 mg, Oral, BID, PRN: [...] IV Push, 1-Time, PRN: Other (See Comment) traZODone: 25 mg, Oral, At Bedtime Documented Medications Documented amLODIPine 5 mg oral [...] Tab, 0 Refill(s), Medications (35) Active Scheduled: (16) #NaCl 0.9% *FLUSH* inj 10 mL 10 mL, IV Push, Q12H #NaCl 0.9% *FLUSH* inj 10 mL 10 mL, IV Push, Q8H atorvastatin 40 mg tab 40 mg 1 Tab, Oral, At Bedtime bumetanide 1 mg/4 mL inj 0.5 mg 2 mL, IV Push, BID enoxaparin 40 mg/0.4 mL inj 40 mg [...] tab 50 mg 1 Tab, Oral, BID traZODone 50 mg tab 25 mg 0.5 Tab, Oral, At Bedtime Continuous: (0) PRN: (19) #NaCl 0.9% *FLUSH* [...] At risk for sleep apnea / IMO [id number] / Confirmed Colorectal surgery / SNOMED CT 5181425630 / Confirmed Aortic valve stenosis / SNOMED CT 058897734 / Confirmed HTN - Hypertension / SNOMED CT 0250066219 / Confirmed At risk for violence / IMO [id number] / Confirmed, Active Problems (14) Aortic stenosis, severe Aortic valve stenosis Arthritis of right knee At risk for sleep apnea At risk for violence Back pain, chronic Chronic anxiety Colorectal surgery Disorder of prostate GERD - Gastro-esophageal reflux disease H/O peripheral neuropathy HTN - Hypertension Hyperlipidemia Hypertension Physical Examination VS/Measurements Vitals Signs (last 24 hrs) Last Charted Minimum Maximum Temp 97.6 (JAN 16 05:35) 97.6 (JAN 16 05:35) 98 (CESAR 22 20:37) Apical HR 84 (JAN 16 11:01) 84 (JAN 16 11:01) 84 (JAN 16 11:01) Mon HR 93 (JAN 16 05:35) 84 (CESAR 23 03:12) 96 (CESAR 22 18:24) Resp Rate 20 (CESAR 22 18:24) 20 (CESAR 22 18:24) 20 (CESAR 22 18:24) SBP 105 (JAN 16 05:35) 104 (CESAR 22 18:24) 126 (CESAR 23 03:12) DBP 63 (JAN 16 05:35) L 57 (CESAR 23 03:12) 76 (CESAR 22 20:37) MAP 77 (JAN 16 05:35) 75 (CESAR 22 18:24) 88 (ECSAR 22 20:37) SpO2 97 (CESAR 23 08:39) 96 (CESAR 22 18:24) 97 (JAN 16 08:39) Intake & Output Totals Last 24 Hours (7a-7a) Intake (24 Events) Medications (84 mL) Enteral Feeding Amount (600 mL) Output (3 Events) Spence Catheter (1600 mL) Input Total: 684 mL Output Total: 1600 mL Balance: -916 mL General: Alert and oriented, No acute distress, frail, elderly . Eye: Pupils are equal, round and reactive to light, Normal conjunctiva. HENT: Normocephalic. Mouth: Oral mucosa ( Dry ). Neck: Supple, No lymphadenopathy. Respiratory: Breath sounds are equal, dec bibasilar. Cardiovascular: Normal rate, Regular rhythm, No edema. Gastrointestinal: Soft, Non-tender, Non-distended, hypoactive throughout. Genitourinary: Support: Urinary catheter ( Indwelling ). Musculoskeletal: No swelling, No deformity. Integumentary: Warm, Dry. Integumentary exam: Pale. Neurologic: Alert, Oriented, weaker on R side, R facial droop. Psychiatric: Cooperative, Appropriate mood & affect. Review / Management Results review: Labs (Last four charted values) WBC H 10.3 (JAN 16) H 11.2 (DEC 22) H 11.3 (CESAR 21) H 11.9 (CESAR 20) HB L 10.7 (DEC 23) L 10.5 (CESAR 22) L 9.6 (CESAR 21) L 9.5 (CESAR 20) HCT L 32.9 (CESAR 23) L 33.2 (CESAR 22) L 29.9 (CESAR 21) L 29.4 (CESAR 20) Plt H 517 (CESAR 23) H 535 (CESAR 22) H 460 (CESAR 21) H 490 (CESAR 20) Na L 132 (CESAR 23) L 133 (CESAR 22) L 133 (CESAR 21) L 135 (CESAR 20) K 4.7 (CESAR 23) 5.0 (CESAR 22) 4.5 (CESAR 21) 4.4 (CESAR 20) Cl L 99 (CESAR 23) L 100 (ECSAR 22) L 101 (CESAR 21) L 101 (CESAR 20) CO2 29 (CESAR 23) 28 (CESAR 22) 29 (CESAR 21) 30 (CESAR 20) BUN H 43 (CESAR 23) H 35 (CESAR 22) H 36 (CESAR 21) H 33 (CESAR 20) Cr 0.80 (CESAR 23) 0.80 (CESAR 22) 0.80 (CESAR 21) 0.80 (CESAR 20) Glu R 95 (CESAR 23) 91 (CESAR 22) H 140 (CESAR 21) H 142 (CESAR 20) Ca 8.9 (CESAR 23) 9.3 (CESAR 22) 8.5 (CESAR 21) 8.5 (CESAR 20) Lactic 1.3 (CESAR 15) 1.0 (CESAR 13) [...] Gas Results Found (Past 24 Hours) JAN 16 04:16 L 132 L 99 H 43 / 95 4.7 29 0.80 \ DEC 23 04:16 \ L 10.7 / H 10.3 H 517 / L 32.9 \ Blood Gases (Current Encounter/Past 24 Hours) No Blood Gas Results Found (Past 24 Hours) Radiology Results (Last 48 hours) [id number] -- 12/27/2020 06:39 CR Chest 1 Vw Portable (01/15/2021 06:15) Result: PORTABLE CHEST, ONE VIEW HISTORY: Pleural effusion.COMPARISON: One day earlier.FINDINGS: The lungs dykes are unchanged. There is no pneumothorax. The cardiac silhouette is stable. Support tubes and lines are stable. IMPRESSION: No significant change. Images reviewed, interpreted, and dictated by Dr. Alvin Portillo.Transcribed by [place] PA-C, R.T. (N), Kieran Lerma.I have personally viewed, interpreted and dictated the examination. Ihmeño read and agree with the above final transcribed report. CR Chest 1 Vw Portable (01/16/2021 06:32) Result: PORTABLE CHEST 01/16/2021 4:00 AM HISTORY: Pleural effusion.COMPARISON: Previous day .FINDINGS: The heart is stable in size. The lung dykes demonstrate nosignificant change in the right perihilar opacity. There is nopneumothorax. The support devices are in good position. Status postmedian sternotomy.IMPRESSION: There has been no significant interval change .Continued follow-up recommended.Images reviewed, interpreted, and dictated by Dr. Brayan Pratt.Transcribed by Mynor Mullins (R).I have personally viewed, interpreted and dictated the examination. Hammad read and agree with the above final transcribed report. CR Modified Swallowing Funct W Video (01/16/2021 10:16) Result: MODIFIED BARIUM SWALLOWHISTORY: Dysphagia.TECHNIQUE: The patient was observed swallowing different consistenciesof barium under fluoroscopy. The examination was performed inconjunction with the speech pathologist.FINDINGS: Fluoroscopy was provided for the speech pathologist toevaluate the swallowing mechanism. The patient was given severaldifferent consistencies of barium while the swallow was visualizedfluoroscopically. There was aspiration of thin consistency. There wasprobable aspiration of pudding consistency due to significant residue.The report of the speech pathologist should be consulted prior to makingdietary decisions.Fluoroscopy exposure time: 0.4 minutes.Fluoroscopy films: 8IMPRESSION: Modified barium swallow under fluoroscopic guidance.Aspiration of thin consistency with probable aspiration of puddingconsistency due to significant residue.Please see speech pathologist's report for further details andrecommendations.Images reviewed, interpreted, and dictated by Dr. Leandra Zepeda.Transcribed by Alyse Cabrera PA-C. MRI of the [...] on 2 L. Still overall weak and fragile, continues to improve. -Recommend increasing activity, PT/OT and getting patient to walk. -Extubated on 01/05/21 -BIPAP PRN for increased WOB and HS -Supplemental O2 to maintain O2 saturations 92-96% currently on 2L NC -Duonebs Q6H -Mucinex 200mg Q6H -Encourage IS and FVD and activity -Cardiology following and adjusting oral agents as needed -continue Bumex 0.5mg BID. Tolerating well -CTS following -Neurology following prior -Antibiotics: -Cefepime--continue for 10 days total -Zosyn for total of 10 days, Klebsiella PNA, stopped Zosyn and switched to Cefepime, continue -TF per dietary at rate of 50ml/ hr, speech following -Prophylaxis: Protonix, SCDs -Anticoagulation per CTS- as discussed in multidisciplinary rounds ok'd per CTS and lovenox was started on 01/10. Bowel Regimen; senna, colace -Continue activity and pulmonary toilet, both encouraged. -PT/OT following -Pt continues to improve, wbc trending down. cxr stable, on 2L oxygen. We will continue to monitor from pulmonary standpoint showed improvement with daily clinical evaluation, labs and images as needed. -Patient would benefit from inpatient rehab. Recommend transfer to [facility] for inpatient rehab. Pulmonary team will sign off. Please call if needed. Thanks for your consult. FULL CODE Prognosis - Guarded. I have [...]
--- OUTSIDE RECORDS SUMMARY | 2025-01-16 11:44 | XMS_ITS | Encounter Summary ---
Author Organization [employer] [facility] [employer] Address [address] [place] [address] Care Team Providers Care Steward/Stewardess Lounge Name Role Phone Unavailable Primary Care Provider Unavailabl e Encounter Details Date Type Department Care Team (Late st Contact Info) Description 01/10/2021 Transcribed Document [facility] Family Medicine [address] [place] [address] ProviderMacrina MD [address] [place] [address] Social History Tobacco Use Types Packs/Day Years Used Date Smoking Tobacco: Never Assessed Sex and Gender Information Value Date Recorded Sex Assigned at Not on file Legal Sex Male 1:13 PM CDT Gender Identity Not on file Sexual Orientation Not on file documented as of this encounter Miscellaneous Notes * Cerner Conversion Note - Macrina ProviderMD - 01/10/2021 6:00 AM CDT FEES Evaluation Entered On: 01/10/2021 9:16 EDT Performed On: 01/10/2021 9:15 EDT by TREE VIVEROS, TREE AND SHRUB WORKER General Information Respiratory Assessment Comment : Nasal cannula TREE VIVEROS, BENJY - 01/10/2021 9:18 EDT Visit Type, TREE AND SHRUB WORKER : Re-Evaluation Patient Orders : Speech Language Pathology FEES -111 Start: 01/10/21 6:00:00 EDT, Routine, For Swallow Eval and Treat - BEATRICE VERONICA APRN Speech Language Pathology Additional Tx - Start: 01/07/21 10:25:00 EDT, For Dysphagia Cognitive Other (use Special instructions), dysarthria, Continuous Order -111 Admission Date : Admission Date/Time: 12/27/20 06:39:00 Medical Chart Reviewed, TREE AND SHRUB WORKER : Yes Personal Devices : Personal Devices [...] aortic (valve) stenosis 12/28/2020 12:00 Polyneuropathy, unspecified TREE VIVEROS, BENJY - 01/10/2021 9:15 EDT Therapy Diagnosis, TREE AND SHRUB WORKER : Pt presents with normal oral skills and severe pharyngeal dysphagia. Recommendations: 1. NPO with Corpak for nutrition/medication 2. Ok for ice after oral care 3. dysphagia tx 4. Repeat instrumental in 1 week TREE VIVEROS SLP - 01/10/2021 9:[address] : Fall prevention measures Previous Speech/Language Evaluations : none Previous Swallow Precautions : none in EMR Previous Cognitive Evaluations : none Diet/Intake Prior to Current Admission : regular Diet/Intake During Current Admission : NPO with corpak Intubation Comment, TREE AND SHRUB WORKER : 12/27-12/31, reintubated 01/01-01/05 Vital Signs RTF [...] Initial Wt: 12/25 65.1 kg 143 lb TREE VIVEROS, BENJY - 01/10/2021 9:15 EDT General Status Patient Received Status, TREE AND SHRUB WORKER : Up in chair Patient Left Status, TREE AND SHRUB WORKER : Up in chair TREE VIVEROS SLP - 01/10/2021 9:56 EDT Pain Assessment Pain Scaled Used : 0-10 Pain scale Pain Score Pre-Intervention : 5 Pain Comment : sternal pain, RN alerted and giving pain medication TREE VIVEROS SLP - 01/10/2021 9:56 EDT Image 1 - Images currently included in the form version of this document have not been included in the text rendition version of the form. Oral Mechanism Dysarthria : Yes Brief Phonation Quality : Wet/gurgly Resonance Types : Hypernasal Oral Mechanism for Daily Living : Intact TREE AND SHRUB WORKER Cough : Weak TREE VIVEROS SLP - 01/10/2021 9:56 EDT FEES Exam Swallow Outcome FEES : Impaired Oral Symptoms FEES : Secretions, excessive, Secretions, inability to clear Swallow Positions FEES : Upright 90 degrees Head Control FEES : Neutral head position Trunk Control FEES : Upright centered position Presentation Style FEES : Staff Location of Scope FEES : Naris, right Sensitive to Scope Movement : No Appearance of hypopharynx : Asymmetrical, Feeding tube Respiration : Normal Phonation/Airway Protection FEES : Asymmetric Laryngeal Vestibule Secretions : Excessive Consistencies Trialed FEES : Pudding TREE VIVEROS SLP - 01/10/2021 9:56 EDT Swallow Impressions Impressions, FEES : Pharyngeal dysphagia TREE VIVEROS SLP - 01/10/2021 9:56 EDT 8 Point Penetration/Aspiration Grid Pudding : 8 TREE VIVEROS SLP - 01/10/2021 9:56 EDT Contributing Factors FEES : Endurance, decreased, Weak protective reactions Aspiration Reaction FEES : Silent Swallow Impairment Severity : Severe Further Evaluation Required, TREE AND SHRUB WORKER : Repeat instrumental in 1 week prior to diet initiation FEES Overall Impressions : Pt was positioned upright at 90 degrees in bedside chair for FEES. The naso endoscope passed easily via R naris. R arytenoid asymetry observed secondary to weakness. Signficant white thick secretions observed in the laryngeal vestibule prior to PO trials. Unable to clear with cough/multiple swallows. Oral skills are normal with pudding via spoon. Pt presents with severe pharyngeal dysphagia characterized by mistiming of the swallow, decreased pharyngeal strength and elevation, reduced hyolaryngeal excursion, decreased laryngeal closure, and impaired laryngeal sensation. There is deep penetration of pudding durning the swallow with subsequent aspiration after the swallow from the pyriform sinus. There is moderate diffuse pharyngeal residue with pudding. Unable to clear residue prior to further aspiration/penetration. Given severity of deficits/inability to manage own secretions, study was abandoned. Pt is not safe for a PO diet. Recommend continued NPO with Corpak. Ok for ice in moderation after oral care. TREE AND SHRUB WORKER will continue dysphagia tx and repeat instrumental in 1 week prior to diet initiation. TREE VIVEROS SLP - 01/10/2021 9:56 EDT Swallow Recommendations Recommended Diet Type, SwRec : NPO, OK for ice Swallow Position, SwRec : Upright 90 degrees Supervision Level w/Meals, SwRec : Assist, total Recommended Med Present, SwRec : Non-oral Recommended Exam, Sw Rec : MBSS/VFSS Repeat Swallow Exam Timeframe : 1week TREE VIVEROS SLP - 01/10/2021 9:56 EDT Repeat Instrumental Exam Grid Prior to Diet Advancement : Yes Prior to Liquid Advancement : Yes TREE VIVEROS SLP - 01/10/2021 9:56 EDT Therapy Indication Assessment TREE AND SHRUB WORKER Indicated : Yes TREE AND SHRUB WORKER Interdisciplinary Consultation Needs : No Potential Barriers to TREE AND SHRUB WORKER : Acuity of illness TREE AND SHRUB WORKER Rehabilitation Potential : Guarded TREE AND SHRUB WORKER Potential Guarded Due to : severity of deficits TREE VIVEROS SLP - 01/10/2021 9:56 EDT Swallow Plan/Goals Treatment Frequency, TREE AND SHRUB WORKER : 5 times per wk Treatment Plan Est w/Pt/Caregvr, Swallow : Yes Treatment Duration, TREE AND SHRUB WORKER : One week Therapy at Next Level of Care, TREE AND SHRUB WORKER : Acute inpatient rehab TREE VIVEROS SLP - 01/10/2021 9:18 EDT Swallow LTG Grid TREE AND SHRUB WORKER Communications Media Professor Goal #1 TREE AND SHRUB WORKER Communications Media Professor Goal #2 Swallow LTG : Establish safe oral diet without aspiration Improve swallowing function for oral intake Status : Progressing, continue Progressing, continue TREE VIVEROS SLP - 01/10/2021 9:18 EDT TREE VIVEROS SLP - 01/10/2021 9:18 EDT Swallow Goals Grid Goal #1 Goal #2 Goal #3 Goal #4 Swallow STG : Other: consistent swallow with ice x15 Improve pharyngeal strength Other: instrumental exam Improve laryngeal elevation Related To : Aspiration prevention, Return to oral intake Aspiration prevention, Return to oral intake Aspiration prevention, Return to oral intake Return to oral intake Date to Meet : 01/10/2021 EDT 01/17/2021 EDT 01/10/2021 EDT 01/17/2021 EDT Status : Goal met Revised Goal met Revised Date Met : 01/10/2021 EDT 01/10/2021 EDT TREE VIVEROS SLP - 01/10/2021 9:18 EDT TREE VIVEROS SLP - 01/10/2021 9:18 EDT TREE VIVEROS SLP - 01/10/2021 9:18 EDT TREE VIVEROS SLP - 01/10/2021 9:18 EDT Goal #5 Goal #6 Goal #7 Goal #8 Swallow STG : Improve labial closure Improve swallow timing Improve hyolaryngeal excursion Other: instrumental Related To : Return to oral intake Aspiration prevention, Penetration prevention Aspiration prevention, Penetration prevention Measurement by repeat instrumental exam, Return to oral intake Date to Meet : 01/10/2021 EDT 01/17/2021 EDT 01/17/2021 EDT 01/17/2021 EDT Status : Goal met Initial goal Initial goal Initial goal Date Met : 01/10/2021 EDT TREE VIVEROS SLP - 01/10/2021 9:18 EDT TREE VIVEROS SLP - 01/10/2021 9:18 EDT TREE VIVEROS SLP - 01/10/2021 9:18 EDT TREE VIVEROS SLP - 01/10/2021 9:18 EDT Education Barriers To Learning : None evident Individuals Taught : Patient Readiness to Learn : Cooperative Readiness to Learn : Explanation TREE VIVEROS SLP - 01/10/2021 9:18 EDT TREE AND SHRUB WORKER Education Assessment Grid 1 Dysphagia, Effects of Impairment : Verbalizes understanding Ice Chips : Verbalizes understanding MBSS/VFSS/FEES Results : Verbalizes understanding Oral Care : Verbalizes understanding TREE VIVEROS SLP - 01/10/2021 9:18 EDT TREE AND SHRUB WORKER Education Assessment Grid 2 Treatment Plan : Verbalizes understanding TREE VIVEROS SLP - 01/10/2021 9:[address] [facility] TREE AND SHRUB WORKER Charges [facility] Ea 15 Min : 1 FEES : 1 TREE VIVEROS SLP - 01/10/2021 9:18 EDT Anticipated Discharge Needs, TREE AND SHRUB WORKER Anticipated Discharge to : Rehab, high intensity Recommend Continued Therapy at Discharge : Yes TREE VIVEROS, TREE AND SHRUB WORKER - 01/10/2021 9:18 EDT documented in this encounter Plan of Treatment Not on file documented as of this encounter Visit Diagnoses Not on filedocumented in this encounter
--- OUTSIDE RECORDS SUMMARY | 2025-01-16 11:44 | XMS_ITS | Encounter Summary ---
Author Organization [employer] Address [address] [place] [address] Care Team Providers Care Weighbridge Operator Name Role Phone Unavailable Primary Care Provider Unavailabl e Encounter Details Date Type Department Care Team (Late st Contact Info) Description 01/15/2021 Transcribed Document [facility] Cardiology [address] [place] [address] Danyelle Gomez MD [address] [facility] [address] [place] [id number] Social History Tobacco Use Types Packs/Day Years Used Date Smoking Tobacco: Never Assessed Sex and Gender Information Value Date Recorded Sex Assigned at Not on file Legal Sex Male 1:13 PM CDT Gender Identity Not on file Sexual Orientation Not on file documented as of this encounter Miscellaneous Notes * Cerner Conversion Note - Danyelle Gomez MD - 01/15/2021 9:57 AM EDT Patient: JOSE ADORNO Age: 80 years Sex: Male : 1940 Associated Diagnoses: None Author: DANYELLE GOMEZ MD-CAR BASIC PCP: Robert Batista MD Primary Regional Economist: Danyelle Gomez MD Subjective Moved to telemetry. Still has some challenges with swallowing food. He also has some difficulties with sleeping at night. Health Status Current medications: Home Medications (6) [...] 10 mL 10 mL, IV Push, Q8H aspirin 81 mg chew tab 81 mg [...] 100 mL, IV Push, 1-Time Problem list: Active Problems (14) Aortic stenosis, severe Aortic valve stenosis Arthritis of right knee At risk for sleep apnea At risk for violence Back pain, chronic Chronic anxiety Colorectal surgery Disorder of prostate GERD - Gastro-esophageal reflux disease H/O peripheral neuropathy HTN - Hypertension Hyperlipidemia Hypertension Objective Intake and Output 24 hour intake: Total 880 ml 24 hour output: Total 2,375 ml VS/Measurements Vitals Signs (last 24 hrs) Last Charted Minimum Maximum Temp 98 (JAN 15 05:40) 97.8 (JAN 14 20:24) 98.2 (JAN 14 10:12) Mon HR 113 (JAN 15 05:40) 87 (JAN 14 10:12) 113 (JAN 15 05:40) Resp Rate 16 (JAN 14 17:04) 16 (JAN 14 17:04) 16 (JAN 14 17:04) SBP 119 (JAN 15 05:40) 97 (JAN 14 17:04) 119 (JAN 15 05:40) DBP 79 (JAN 15 05:40) L 59 (JAN 14 10:12) 79 (JAN 15 05:40) MAP 88 (JAN 15 05:40) 68 (JAN 14 10:12) 88 (JAN 15 05:40) SpO2 95 (JAN 14 19:50) 94 (JAN 14 17:04) 95 (JAN 14 19:50) General: Alert and oriented, No acute distress. Eye: Pupils are equal, round and reactive to light, Normal conjunctiva, Vision unchanged. HENT: Normocephalic. Neck: Supple. Respiratory: Breath sounds are equal, Symmetrical chest wall expansion. Breath sounds: Normal Support: Oxygen ( 2 L/min ), Oxygen delivery method ( Nasal cannula ). Cardiovascular: Normal rate, Regular rhythm, Good pulses equal in all extremities. Gastrointestinal: Soft, Non-tender, Non-distended, Normal bowel sounds. Genitourinary: indwelling rocha catheter. Musculoskeletal: No deformity. Integumentary: Warm, Dry. Neurologic: Alert, Oriented. Psychiatric: Cooperative, Appropriate mood & affect. Results Review JAN 15 04:10 L 133 L 100 H 35 / 91 5.0 28 0.80 \ JAN 15 04:10 \ L 10.5 / H 11.2 H 535 / L 33.2 \ Radiology Results (Last 48 hours) [id number] -- 12/27/2020 06:39 CR Chest 1 Vw Portable (01/14/2021 05:54) [...] left ventricular tear. 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 Apical perforation/Acute tamponade s/p pericardiocentesis and surgical repair of LV Curtice. *PEA Arrest; CODE called 10 minutes to ROSC Mediastinal hemorrhage/Cardiac tamponade s/p emergent sternotomy; repair of left ventricular teat 12/27/2020 - Mechanical vent placed during surgery; extubated 01/05/21 *acute blood loss anemia s/p Transfusions: 4 units of PRBCs, cryoprecipitate, platelets, and FFP *Hypertension *Neurologic changes; CVA CT - no acute changes. MRI - Multiple acute infarcts PLAN; 01/15/2021 Trazodone for sleep. I appreciate the input of speech therapy regarding the management of this patient swallowing problems, hopefully we can have him recovered sooner than later. Continue with supportive care. I made no changes to his medications today. 01/12/2021 Continue current CV meds. Increase activity [...]
--- OUTSIDE RECORDS SUMMARY | 2025-01-16 11:44 | XMS_ITS | Encounter Summary ---
Author Organization [employer] [facility] Address [address] [place] [address] Care Team Providers Care Assistant Plant Controller Name Role Phone Unavailable Primary Care Provider Unavailabl e Encounter Details Date Type Department Care Team (Late st Contact Info) Description 01/09/2021 Transcribed Document [facility] Family Medicine [address] [place] [address] ProviderMacrina MD [address] [place] [address] Social History Tobacco Use Types Packs/Day Years Used Date Smoking Tobacco: Never Assessed Sex and Gender Information Value Date Recorded Sex Assigned at Not on file Legal Sex Male 1:13 PM CDT Gender Identity Not on file Sexual Orientation Not on file documented as of this encounter Miscellaneous Notes * Cerner Conversion Note - Macrina ProviderMD - 01/09/2021 10:15 AM CDT Spiritual Care Assessment Entered On: 01/09/2021 12:30 EDT Performed On: 01/09/2021 10:15 EDT by BRISSA SULLIVAN General Information Initial Visit : No Referred by : Physician Compensation Analyst follow-up Referral Reason Comment : Critical care follow up visit Ministry Provided to : Patient Roman Catholic Preference : Latter Day BRISSA SULLIVAN - 01/09/2021 12:28 EDT Spiritual Assessment Spiritual Assessment Comment/Summary Points : Patient up in chair, communicates with gestures. Provided supportive presence, reassurance and prayer. Spirital Assessment Comment/Summary Report : SPIRITUAL ASSESSMENT COMMENT/SUMMARY Spiritual Assessment Comment/Summary 12/28/20 13:16:00 Patient resting on vent. Provided active listening and spiritual support to . Shared prayer together over patient. Consulted with nursing. Signed By: BRISSA SULLIVAN Spiritual Assessment Comment/Summary 12/27/20 18:37:00 follow up visit when other family arrived. Patient's son, Tiago, and his , Blanca, came for support for Evelia. Additional hospitality and supportive ministry provided for family. Signed By: LAVERN VALDIVIA Chaplain Spiritual Assessment Comment/Summary 12/27/20 18:36:00 follow up visit as recommended by previous . Supportive presence and conversation provided for patient's [...] Signed By: BRISSA SULLIVAN SCOTT P - 01/09/2021 12:28 EDT Interventions Emotional Support : Empathic/Engaged listening Spiritual and Roman Catholic : Prayer shared, Spiritual/Roman Catholic support provided BRISSA SULLIVAN P - 01/09/2021 12:28 EDT Electronically signed by Sekou Payne Conversion Electrical Prospecting Supervisor Cerner at 11/10/2022 9:10 AM CDT documented in this encounter Plan of Treatment Not on file documented as of this encounter Visit Diagnoses Not on filedocumented in this encounter
--- OUTSIDE RECORDS SUMMARY | 2025-01-16 11:44 | XMS_ITS | Encounter Summary ---
Author Organization [facility] Address [address] [place] [address] Care Team Providers Care Biological Scientist Name Role Phone Unavailable Primary Care Provider Unavailabl e Encounter Details Date Type Department Care Team (Late st Contact Info) Description 01/10/2021 Transcribed Document [facility] Family Medicine [address] [place] [address] ProviderMacrina MD [address] [place], [place] [id number] Social History Tobacco Use Types Packs/Day Years Used Date Smoking Tobacco: Never Assessed Sex and Gender Information Value Date Recorded Sex Assigned at Not on file Legal Sex Male 1:13 PM CDT Gender Identity Not on file Sexual Orientation Not on file documented as of this encounter Miscellaneous Notes * Cerner Conversion Note - Historical ProviderMD - 01/10/2021 12:31 PM CDT Admission Coordinator Note Entered On: 01/10/2021 12:32 EDT Performed On: 01/10/2021 12:31 EDT by Kristina Burris Clinical Assessment Liaison Admission Coordinator Note Admission Coordinator Note : Received referral for LTACH evaluation. Chart reviewed. Will continue to monitor. Thank you for the referral. Kristina Burris Clinical Assessment Liaison - 01/10/2021 12:31 EDT documented in this encounter Plan of Treatment Not on file documented as of this encounter Visit Diagnoses Not on filedocumented in this encounter
--- OUTSIDE RECORDS SUMMARY | 2025-01-16 11:44 | XMS_ITS | Encounter Summary ---
Author Organization [facility] Address [address] [place] [address] Care Team Providers Care Manager Operations And Procurement Name Role Phone Unavailable Primary Care Provider Unavailabl e Encounter Details Date Type Department Care Team (Late st Contact Info) Description 12/31/2020 Transcribed Document [facility] [place] Medicine [address] [place] [address] ProviderMacrina MD [address] [place] [address] Social History Tobacco Use Types Packs/Day Years Used Date Smoking Tobacco: Never Assessed Sex and Gender Information Value Date Recorded Sex Assigned at Not on file Legal Sex Male 1:13 PM CDT Gender Identity Not on file Sexual Orientation Not on file documented as of this encounter Miscellaneous Notes * Cerner Conversion Note - Historical ProviderMD - 12/31/2020 5:00 AM CDT Chart Check - Review Order Profile Entered On: 12/31/2020 3:32 EDT Performed On: 12/31/2020 5:00 EDT by PEEWEE SMITH RN Chart Check Powerplans Initiated/Discontinued as Appropriate : Yes All Active Orders Reviewed : Yes PEEWEE SMITH RN - 12/31/2020 3:32 EDT documented in this encounter Plan of Treatment Not on file documented as of this encounter Visit Diagnoses Not on filedocumented in this encounter
--- OUTSIDE RECORDS SUMMARY | 2025-01-16 11:44 | XMS_ITS | Encounter Summary ---
Author Organization [employer] [facility] Address [address] [place] [address] Care Team Providers Care Registered Nurses Name Role Phone Unavailable Primary Care Provider Unavailabl e Encounter Details Date Type Department Care Team (Late st Contact Info) Description 12/31/2020 Transcribed Document [facility] Family Medicine [address] [place] [address] ProviderMacrina MD [address] [place] [address] Social History Tobacco Use Types Packs/Day Years Used Date Smoking Tobacco: Never Assessed Sex and Gender Information Value Date Recorded Sex Assigned at Not on file Legal Sex Male 1:13 PM CDT Gender Identity Not on file Sexual Orientation Not on file documented as of this encounter Miscellaneous Notes * Cerner Conversion Note - Macrina ProviderMD - 12/31/2020 5:00 AM CDT Height and Weight, Routine Entered On: 12/31/2020 3:29 EDT Performed On: 12/31/2020 5:00 EDT by PEEWEE SMITH RN Height and Weight, Routine Routine Weight Source : Bed scale Routine Weight Entry Format : Metric Routine Weight, Kilograms : 74.9 kg(Converted to: 165 lb 2 oz) Routine Weight Calculation : 74.9 kg Height Source : Measured Height Entry Format : [place] Height, Feet : 0 ft Height, Inches : 67.75 Inch Clinical Height : 172.09 cm Body Surface Area (BSA), Routine : 1.88 m2 Body Mass Index (BMI), Routine : 25.29 kg/m2 PEEWEE SMITH RN - 12/31/2020 3:29 EDT documented in this encounter Plan of Treatment Not on file documented as of this encounter Visit Diagnoses Not on filedocumented in this encounter
--- OUTSIDE RECORDS SUMMARY | 2025-01-16 11:44 | XMS_ITS | Encounter Summary ---
Author Organization [facility] Address [address] [place] [id number] Care Team Providers Care Director Digital Advertising Name Role Phone Unavailable Primary Care Provider Unavailabl e Encounter Details Date Type Department Care Team (Late st Contact Info) Description 01/10/2021 Transcribed Document [facility] [place] Family Medicine [address] [place] [address] ProviderMacrina MD [address] [place] [address] Social History Tobacco Use Types Packs/Day Years Used Date Smoking Tobacco: Never Assessed Sex and Gender Information Value Date Recorded Sex Assigned at Not on file Legal Sex Male 1:13 PM CDT Gender Identity Not on file Sexual Orientation Not on file documented as of this encounter Miscellaneous Notes * Cerner Conversion Note - Macrina Cordova MD - 01/10/2021 10:50 AM CDT Consult to Plate Mounter Entered On: 01/10/2021 14:03 EDT Performed On: 01/10/2021 10:50 EDT by Kathy Medrano, RN Consult to Plate Mounter Modifiable Risk Factors : Dyslipidemia, Hypertension Non-Modifiable Risk Factors, Age : Non-Modifiable Risk Factors, Age Age: 80 Years Non-Modifiable Risk Factors, Race : Non-Modifiable Risk Factors, Race Race: White Non-Modifiable Risk Factors, Family History : Non-Modifiable Risk Factors, Family History Heart disease: Father (12/27/20 08:31:11) Heart disease: Mother (12/27/20 08:31:11) Modified Berrien Score : Modified Chantel Scale No qualifying data available. NIH Stroke Scale (Admission) : NIH Stroke Scale (Admission) NIH Scale Score: 5 (01/07/2021 08:00:00) NIH Stroke Scale (Discharge) : NIH Stroke Scale (Discharge) NIH Scale Score: 5 (01/07/2021 08:00:00) Bedside Swallow (SHEET METAL OPERATOR) : Bedside Swallow (SHEET METAL OPERATOR) Swallow Outcome BS Swallow: Impaired (01/07/21 09:35:00) Oral Care Completed BS Swallow: No (01/09/21 13:50:00) Swallow Position BS Swallow: Upright 90 degrees (01/07/21 09:35:00) Head Control BS Swallow: Neutral head position (01/07/21 09:35:00) Trunk Control BS Swallow: Upright centered position (01/07/21 09:35:00) Presentation Style BS Swallow: Clinician (01/07/21 09:35:00) Consistencies Trialed BS Swallow: Ice chips, Thin by spoon (01/07/21 09:35:00) Kathy Medrano RN - 01/10/2021 13:43 EDT Plate Mounter Needs Assessment Diagnosis Documented by Provider : Acute Ischemic Stroke Modifiable Risk Factors : Dyslipidemia, Hypertension Plate Mounter Consultation Summary : Met with patient to provide stroke education. We discussed types of stroke, stroke signs/symptoms of stroke, stroke risk factors, stroke prevention and stroke rehab. I encouraged him to monitor his blood pressure at home, adhere to medication regimen and follow up with recommended providers at discharge. I provided him with a stroke education folder which includes handouts of all information that we discussed as well as my contact information for future needs. Kathy Medrano RN - 01/10/2021 13:43 EDT (As Of: 01/10/2021 14:03:11 EDT) Problems(Active) Aortic stenosis, severe (SNOMED CT :5236423219 ) Name of Problem: Aortic stenosis, severe ; Recorder: CINDY HAGAN RN; Confirmation: Confirmed ; Classification: Patient Stated ; Code: [id number] ; Contributor System: PowerChart ; Last Updated: 12/03/2020 13:33 EDT ; Life Cycle Date: 12/03/2020 ; Life Cycle Status: Active ; Vocabulary: SNOMED CT Aortic valve stenosis (SNOMED CT :256649081 ) Name of Problem: Aortic valve stenosis ; Recorder: FABRICE JOSEPH RN; Confirmation: Confirmed ; Classification: Medical ; Code: [id number] ; Contributor System: PowerChart ; Last Updated: 12/27/2020 8:31 EDT ; Life Cycle Status: Active ; Vocabulary: SNOMED CT Arthritis of right knee (SNOMED CT :8504415507 ) Name of Problem: Arthritis of right knee ; Recorder: CINDY HAGAN RN; Confirmation: Confirmed ; Classification: Patient Stated ; Code: [id number] ; Contributor System: PowerChart ; Last Updated: 12/03/2020 13:35 EDT ; Life Cycle Date: 12/03/2020 ; Life Cycle Status: Active ; Vocabulary: SNOMED CT At risk for sleep apnea (IMO :08025374 ) Name of Problem: At risk for sleep apnea ; Recorder: SYSTEM, SYSTEM; Confirmation: Confirmed ; Classification: Medical ; Code: 22120704 ; Last Updated: 11/15/2019 7:34 EDT ; Life Cycle Date: 11/15/2019 ; Life Cycle Status: Active ; Vocabulary: IMO At risk for violence (IMO :18338324 ) Name of Problem: At risk for violence ; Recorder: SYSTEM, SYSTEM; Confirmation: Confirmed ; Classification: Medical ; Code: 26916809 ; Last Updated: 01/08/2021 8:42 EDT ; Life Cycle Date: 01/08/2021 ; Life Cycle Status: Active ; Vocabulary: IMO Back pain, chronic (SNOMED CT :130760483 ) Name of Problem: Back pain, chronic ; Recorder: CELESTINA ALVARADO RN; Confirmation: Confirmed ; Classification: Patient Stated ; Code: 572019732 ; Contributor System: PowerChart ; Last Updated: 09/19/2019 13:32 EST ; Life Cycle Date: 09/19/2019 ; Life Cycle Status: Active ; Vocabulary: SNOMED CT Chronic anxiety (SNOMED CT :522816343 ) Name of Problem: Chronic anxiety ; Recorder: CELESTINA ALVARADO RN; Confirmation: Confirmed ; Classification: Patient Stated ; Code: 009808129 ; Contributor System: PowerChart ; Last Updated: 09/19/2019 13:30 EST ; Life Cycle Date: 09/19/2019 ; Life Cycle Status: Active ; Vocabulary: SNOMED CT Colorectal surgery (SNOMED CT :5378167796 ) Name of Problem: Colorectal surgery ; Onset Date: 12/05/1997 ; Recorder: TONY BRIDGES RN; Confirmation: Confirmed ; Classification: Medical ; Code: 3190165276 ; Contributor System: PowerChart ; Last Updated: 12/25/2020 10:35 EDT ; Life Cycle Date: 12/25/2020 ; Life Cycle Status: Active ; Vocabulary: SNOMED CT Disorder of prostate (SNOMED CT :15530617 ) Name of Problem: Disorder of prostate ; Recorder: CELESTINA ALVARADO, SHYAM; Confirmation: Confirmed ; Classification: Patient Stated ; Code: 05796083 ; Contributor System: PowerChart ; Last Updated: 09/19/2019 13:31 EST ; Life Cycle Date: 09/19/2019 ; Life Cycle Status: Active ; Vocabulary: SNOMED CT GERD - Gastro-esophageal reflux disease (SNOMED CT :8017508369 ) Name of Problem: GERD - Gastro-esophageal reflux disease ; Recorder: CELESTINA ALVARADO RN; Confirmation: Confirmed ; Classification: Patient Stated ; Code: 1885830549 ; Contributor System: PowerChart ; Last Updated: 09/19/2019 13:31 EST ; Life Cycle Date: 09/19/2019 ; Life Cycle Status: Active ; Vocabulary: SNOMED CT H/O peripheral neuropathy (SNOMED CT :243343829 ) Name of Problem: H/O peripheral neuropathy ; Recorder: CINDY HAGAN RN; Confirmation: Confirmed ; Classification: Patient Stated ; Code: 126000320 ; Contributor System: PowerChart ; Last Updated: 12/25/2020 10:35 EDT ; Life Cycle Status: Active ; Vocabulary: SNOMED CT ; Comments: 12/25/2020 10:35 - TONY BRIDGES RN feet tingle all the time HTN - Hypertension (SNOMED CT :7431817206 ) Name of Problem: HTN - Hypertension ; Recorder: FABRICE JOSEPH RN; Confirmation: Confirmed ; Classification: Medical ; Code: 8801607131 ; Contributor System: PowerChart ; Last Updated: 12/27/2020 8:32 EDT ; Life Cycle Status: Active ; Vocabulary: SNOMED CT Hyperlipidemia (SNOMED CT :71893557 ) Name of Problem: Hyperlipidemia ; Recorder: CELESTINA ALVARADO, SHYAM; Confirmation: Confirmed ; Classification: Patient Stated ; Code: 22209102 ; Contributor System: PowerChart ; Last Updated: 09/19/2019 13:29 EST ; Life Cycle Date: 09/19/2019 ; Life Cycle Status: Active ; Vocabulary: SNOMED CT Hypertension (SNOMED CT :64639155 ) Name of Problem: Hypertension ; Recorder: CELESTINA ALVARADO RN; Confirmation: Confirmed ; Classification: Patient Stated ; Code: 29591920 ; Contributor System: Recommend ; Last Updated: 09/19/2019 13:29 EST ; Life Cycle Date: 09/19/2019 ; Life Cycle Status: Active ; Vocabulary: SNOMED CT Diagnoses(Active) Diagnosis Type: Admitting ; Code: ICD-10-CM ; Probability: 0 ; Diagnosis Code: I35.0 Diagnosis Type: Working ; Code: ICD-10-CM ; Probability: 0 ; Diagnosis Code: I35.0 Anxiety Date: 12/28/2020 ; Diagnosis Type: Pre-Op Diagnosis ; Confirmation: Confirmed ; Clinical Dx: Anxiety ; Classification: Medical ; Clinical Service: Non-Specified ; Code: ICD-10-CM ; Probability: 0 ; Diagnosis Code: F41.9 Cardiac tamponade Date: 12/28/2020 ; Diagnosis Type: Discharge ; Confirmation: Confirmed ; Clinical Dx: Cardiac tamponade ; Classification: Medical ; Clinical Service: Non-Specified ; Code: ICD-10-CM ; Probability: 0 ; Diagnosis Code: I31.4 Critical aortic stenosis Date: 12/28/2020 ; Diagnosis Type: Admitting ; Confirmation: Confirmed ; Clinical Dx: Critical aortic stenosis ; Classification: Medical ; Clinical Service: Non-Specified ; Code: ICD-10-CM ; Probability: 0 ; Diagnosis Code: I35.0 Critical aortic stenosis Date: 12/28/2020 ; Diagnosis Type: Discharge ; Confirmation: Confirmed ; Clinical Dx: Critical aortic stenosis ; Classification: Medical ; Clinical Service: Non-Specified ; Code: ICD-10-CM ; Probability: 0 ; Diagnosis Code: I35.0 GERD (gastroesophageal reflux disease) Date: 12/28/2020 ; Diagnosis Type: Pre-Op Diagnosis ; Confirmation: Confirmed ; Clinical Dx: GERD (gastroesophageal reflux disease) ; Classification: Medical ; Clinical Service: Non-Specified ; Code: ICD-10-CM ; Probability: 0 ; Diagnosis Code: K21.9 History of Colon cancer S/P Surgery Date: 12/28/2020 ; Diagnosis Type: Pre-Op Diagnosis ; Confirmation: Confirmed ; Clinical Dx: History of Colon cancer S/P Surgery ; Classification: Medical ; Clinical Service: Non-Specified ; Code: ICD-10-CM ; Probability: 0 ; Diagnosis Code: C18.9 HLD (hyperlipidemia) Date: 12/28/2020 ; Diagnosis Type: Pre-Op Diagnosis ; Confirmation: Confirmed ; Clinical Dx: HLD (hyperlipidemia) ; Classification: Medical ; Clinical Service: Non-Specified ; Code: ICD-10-CM ; Probability: 0 ; Diagnosis Code: E78.5 HTN (hypertension) Date: 12/28/2020 ; Diagnosis Type: Pre-Op Diagnosis ; Confirmation: Confirmed ; Clinical Dx: HTN (hypertension) ; Classification: Medical ; Clinical Service: Non-Specified ; Code: ICD-10-CM ; Probability: 0 ; Diagnosis Code: I10 Mediastinal Hemorrhage Date: 12/28/2020 ; Diagnosis Type: Discharge ; Confirmation: Confirmed ; Clinical Dx: Mediastinal Hemorrhage ; Classification: Medical ; Clinical Service: Non-Specified ; Code: ICD-10-CM ; Probability: 0 ; Diagnosis Code: R58 Peripheral neuropathy Date: 12/28/2020 ; Diagnosis Type: Pre-Op Diagnosis ; Confirmation: Confirmed ; Clinical Dx: Peripheral neuropathy ; Classification: Medical ; Clinical Service: Non-Specified ; Code: ICD-10-CM ; Probability: 0 ; Diagnosis Code: G62.9 Medication List (As Of: 01/10/2021 14:03:11 EDT) Normal Order phenylephrine 20 mg + NaCl 0.9% T ITRATE 250 mL : phenylephrine 20 mg + NaCl 0.9% T ITRATE 250 mL ; Status: Discontinued ; Ordered As Mnemonic: phenylephrine injection 20 mg + NaCl 0.9% for drip 250 mL ; Simple Display Line: TITRATE, IntraVENous ; Ordering Provider: FRANDY CARSON PA; Catalog Code: Sodium Chloride 0.9% intravenous solutio ; Order Dt/Tm: 01/08/2021 23:06:57 EDT ; Comment: Max: 260 mcg/min (Contact MD if higher doses are needed). Titrate: 10 mcg/min every 3 minutes. Standard concentration: 80 mcg/mL Caution: Extravasation Risk Initial Infusion Rate: 50 mcg/min Titration Instructions: Titrate dose by 10 mcg/min every 3 minutes to achieve desired effect Maximum Rate of Infusion: 260 mcg/min (Contact MD if higher doses are needed) Goal Titration Parameter: MAP greater than or equal to 65 mmHg lisinopril 10 mg tab : lisinopril 10 mg tab ; Status: Ordered ; Ordered As Mnemonic: lisinopril ; Simple Display Line: 10 mg, Oral, Daily ; Ordering Provider: HARRISON MUNIZ MD; Catalog Code: lisinopril ; Order Dt/Tm: 01/10/2021 10:46:02 EDT ; Comment: Antihypertensive - Check BP - Check Pulse melatonin 3 mg tab : melatonin 3 mg tab ; Status: Ordered ; Ordered As Mnemonic: melatonin ; Simple Display Line: 3 mg, Oral, At Bedtime ; Ordering Provider: HARRISON MUNIZ MD; Catalog Code: melatonin ; Order Dt/Tm: 01/10/2021 11:41:16 EDT metoprolol tartrate 50 mg tab : metoprolol tartrate 50 mg tab ; Status: Ordered ; Ordered As Mnemonic: Lopressor ; Simple Display Line: 50 mg, Oral, BID ; Ordering Provider: HARRISON MUNIZ MD; Catalog Code: metoprolol ; Order Dt/Tm: 01/10/2021 11:41:16 EDT ; Comment: HOLD FOR SYSTOLIC BP < 90 mmHg OR FOR HEART RATE < 50 BPM #NaCl 0.9% *FLUSH* inj 10 mL : #NaCl 0.9% *FLUSH* inj 10 mL ; Status: Ordered ; Ordered As Mnemonic: Normal Saline Flush ; Simple Display Line: 10 mL, IV Push, Q8H ; Ordering Provider: FRANDY CARSON PA; Catalog Code: sodium chloride ; Order Dt/Tm: 01/10/2021 12:42:40 EDT ; Comment: Flush IV line q8h or as ordered by prescriber and/or after IV meds clopidogrel 75 mg tab : clopidogrel 75 mg tab ; Status: Ordered ; Ordered As Mnemonic: clopidogrel ; Simple Display Line: 75 mg, Oral, Daily ; Ordering Provider: FRANDY CARSON PA; Catalog Code: clopidogrel ; Order Dt/Tm: 01/10/2021 13:06:58 EDT #NaCl 0.9% *FLUSH* inj 10 mL : #NaCl 0.9% *FLUSH* inj 10 mL ; Status: Ordered ; Ordered As Mnemonic: Normal Saline Flush ; Simple Display Line: 10 mL, IV Push, See Comment, PRN: Other (See Comment) ; Ordering Provider: FRANDY CARSON PA; Catalog Code: sodium chloride ; Order Dt/Tm: 01/10/2021 12:42:40 EDT ; Comment: to maintain IV use enoxaparin 40 mg/0.4 mL inj : enoxaparin 40 mg/0.4 mL inj ; Status: Ordered ; Ordered As Mnemonic: Lovenox ; Simple Display Line: 40 mg, SubCutaneous, Daily ; Ordering Provider: FRANDY CARSON PA; Catalog Code: enoxaparin ; Order Dt/Tm: 01/10/2021 10:46:02 EDT ; Comment: Do Not Administer Within 12 Hrs Of Epidural or Lumbar Puncture Look-Alike/Sound-Alike Alert famotidine 20 mg tab : famotidine 20 mg tab ; Status: Ordered ; Ordered As Mnemonic: Pepcid ; Simple Display Line: 20 mg, Oral, Daily ; Ordering Provider: HARRISON MUNIZ MD; Catalog Code: famotidine ; Order Dt/Tm: 01/09/2021 12:19:52 EDT calcium gluconate + NaCl 0.9% 50 mL : calcium gluconate + NaCl 0.9% 50 mL ; Status: Completed ; Ordered As Mnemonic: calcium gluconate + Sodium Chloride 0.9% intravenous solution 50 mL ; Simple Display Line: 1,000 mg, 10 mL, 60 mL/Hr, IV Piggyback, 1-Time ; Ordering Provider: HARRISON MUNIZ MD; Catalog Code: calcium gluconate ; Order Dt/Tm: 01/09/2021 12:19:52 EDT ; Comment: 1 Gram of Calcium gluconate = 4.6 mEq elemental CALCIUM polyethylene glycol 3350 pwd 17 g pkt : polyethylene glycol 3350 pwd 17 g pkt ; Status: Ordered ; Ordered As Mnemonic: MiraLax ; Simple Display Line: 17 Gram, Oral, Daily, PRN: Constipation ; Ordering Provider: HARRISON MUNIZ MD; Catalog Code: polyethylene glycol 3350 ; Order Dt/Tm: 01/09/2021 12:19:52 EDT ; Comment: Dissolve contents of packet in 4 to 8 ounces of liquid senna 8.8 mg/5 mL liq 15 mL : senna 8.8 mg/5 mL liq 15 mL ; Status: Ordered ; Ordered As Mnemonic: senna ; Simple Display Line: 8.8 mg, Oral, BID, PRN: Constipation ; Ordering Provider: HARRISON MUNIZ MD; Catalog Code: senna ; Order Dt/Tm: 01/09/2021 12:19:52 EDT ; Comment: Product contains 528 mg senna extract (26.4 mg sennosides) per 15 mL. Typical dose = 8.8 mg sennosides (176 mg senna extract) per 5 mL. docusate sod 100 mg/10 mL liq : docusate sod 100 mg/10 mL liq ; Status: Ordered ; Ordered As Mnemonic: docusate sodium ; Simple Display Line: 100 mg, Oral, BID, PRN: Constipation ; Ordering Provider: HARRISON MUNIZ MD; Catalog Code: docusate ; Order Dt/Tm: 01/09/2021 12:19:52 EDT ; Comment: HOLD for loose stools WASTE: BKC - BLACK escitalopram 10 mg tab : escitalopram 10 mg tab ; Status: Ordered ; Ordered As Mnemonic: Lexapro ; Simple Display Line: 10 mg, Oral, Daily ; Ordering Provider: ANANDA QUILES MD-ZURDO; Catalog Code: escitalopram ; Order Dt/Tm: 01/09/2021 10:50:27 EDT lisinopril 10 mg tab : lisinopril 10 mg tab ; Status: Discontinued ; Ordered As Mnemonic: lisinopril ; Simple Display Line: 10 mg, Oral, BID ; Ordering Provider: DANYELLE WALTERS MD-CAR; Catalog Code: lisinopril ; Order Dt/Tm: 01/09/2021 09:24:51 EDT ; Comment: Antihypertensive - Check BP - Check Pulse bumetanide 1 mg/4 mL inj : bumetanide 1 mg/4 mL inj ; Status: Ordered ; Ordered As Mnemonic: bumetanide ; Simple Display Line: 0.5 mg, IV Push, Daily ; Ordering Provider: HARRISON MUNIZ MD; Catalog Code: bumetanide ; Order Dt/Tm: 01/09/2021 10:56:39 EDT melatonin 5 mg tab : melatonin 5 mg tab ; Status: Discontinued ; Ordered As Mnemonic: melatonin ; Simple Display Line: 5 mg, Oral, At Bedtime ; Ordering Provider: HARRISON MUNIZ MD; Catalog Code: melatonin ; Order Dt/Tm: 01/08/2021 11:35:00 EDT cefEPIME + NaCl 0.9% 50 mL : cefEPIME + NaCl 0.9% 50 mL ; Status: Ordered ; Ordered As Mnemonic: Maxipime + Sodium Chloride 0.9% intravenous solution 50 mL ; Simple Display Line: 1,000 mg, 100 mL/Hr, IV Piggyback, Q6HInt ; Ordering Provider: HARRISON MUNIZ MD; Catalog Code: cefepime ; Order Dt/Tm: 01/08/2021 11:35:00 EDT ; Comment: DISCARD 24 hours after mixing Activate before infusing QUEtiapine 25 mg tab : QUEtiapine 25 mg tab ; Status: Discontinued ; Ordered As Mnemonic: SEROquel ; Simple Display Line: 12.5 mg, Oral, At Bedtime, PRN: Insomnia ; Ordering Provider: BEATRICE VERONICA APRN; Catalog Code: QUEtiapine ; Order Dt/Tm: 01/08/2021 11:35:00 EDT ; Comment: delirium Look Alike / Sound Alike Alert FOR Psychosis/Agitation/Dementia Use Cautiously in Patients With Sleep Apnea metoprolol tartrate 50 mg tab : metoprolol tartrate 50 mg tab ; Status: Discontinued ; Ordered As Mnemonic: metoprolol tartrate ; Simple Display Line: 50 mg, Oral, Q6H ; Ordering Provider: LANDEN ROCKWELL NP; Catalog Code: metoprolol ; Order Dt/Tm: 01/07/2021 10:16:02 EDT ; Comment: Hold for SBP <110 or HR <55 melatonin 3 mg tab : melatonin 3 mg tab ; Status: Discontinued ; Ordered As Mnemonic: Melatonin ; Simple Display Line: 3 mg, Oral, At Bedtime, PRN: Insomnia ; Ordering Provider: FRANDY CARSON PA; Catalog Code: melatonin ; Order Dt/Tm: 01/07/2021 09:33:03 EDT guaiFENesin 200 mg/10 mL liq : guaiFENesin 200 mg/10 mL liq ; Status: Ordered ; Ordered As Mnemonic: Mucinex ; Simple Display Line: 200 mg, Oral, Q6H ; Ordering Provider: ANTHONY JACOBO PA; Catalog Code: guaiFENesin ; Order Dt/Tm: 01/06/2021 09:38:18 EDT albuterol-ipratropium inh 3 mL : albuterol-ipratropium inh 3 mL ; Status: Ordered ; Ordered As Mnemonic: DuoNeb 0.5 mg-2.5 mg/3 mL inhalation solution ; Simple Display Line: 3 mL, Nebulized Inhalation, RT_Q6H ; Ordering Provider: ANTHONY JACOBO PA; Catalog Code: albuterol-ipratropium ; Order Dt/Tm: 01/06/2021 09:51:14 EDT ; Comment: Small Volume Nebulizer Respiratory Therapy to administer and document hydrALAZINE 20 mg/1 mL inj : hydrALAZINE 20 mg/1 mL inj ; Status: Ordered ; Ordered As Mnemonic: hydrALAZINE ; Simple Display Line: 10 mg, IV Push, Q6H, PRN: Hypertension ; Ordering Provider: LANDEN ROCKWELL NP; Catalog Code: hydrALAZINE ; Order Dt/Tm: 01/05/2021 14:47:17 EDT ; Comment: SBP >150 Antihypertensive - Check BP- Check Pulse Look-Alike/Sound-Alike Alert lactobacillus acidophilus cap : lactobacillus acidophilus cap ; Status: Completed ; Ordered As Mnemonic: lactobacillus acidophilus ; Simple Display Line: 1 Cap, Oral, BID ; Ordering Provider: CHITO CHAPMAN MD; Catalog Code: lactobacillus acidophilus ; Order Dt/Tm: 12/31/2020 11:17:18 EDT morphine 2 mg/1 ml inj : morphine 2 mg/1 ml inj ; Status: Discontinued ; Ordered As Mnemonic: morphine ; Simple Display Line: 1 mg, IV Push, Q3H, PRN: Pain (Moderate 4-6) ; Ordering Provider: FRANDY CARSON PA; Catalog Code: morphine ; Order Dt/Tm: 12/29/2020 21:50:39 EDT ; Comment: Use cautiously in patients at risk for sleep apnea insulin regular 1 unit/0.01 mL inj 3mL : insulin regular 1 unit/0.01 mL inj 3mL ; Status: Ordered ; Ordered As Mnemonic: insulin regular 50 kg - 75 kg ; Simple Display Line: 50 kg - 75 kg scale, SubCutaneous, Q6H ; Ordering Provider: PAT BEAVERS MD; Catalog Code: insulin regular ; Order Dt/Tm: 12/28/2020 16:48:40 EDT ; Comment: For use if patient is on continuous tube feeding, TPN, or NPO, if patient is eating re-order as Insulin Lispro for sliding scale. Less than 140 --no insulin to be given 140- 180 2 units subcutaneously once 181- 220 4 units subcutaneously once 221- 260 6 units subcutaneously once 261- 300 8 units subcutaneously once 301- 350 10 units subcutaneously once 351- 400 12 units subcutaneously once Greater than 400 call MD Note: If Blood sugar is less than 180 between the hours of 2100 and 0600, do NOT give corrective insulin--unless otherwise explicitly ordered by MD aspirin 81 mg chew tab : aspirin 81 mg chew tab ; Status: Ordered ; Ordered As Mnemonic: aspirin ; Simple Display Line: 81 mg, Oral, Daily ; Ordering Provider: DANYELLE WALTERS MD-CAR; Catalog Code: aspirin ; Order Dt/Tm: 12/27/2020 08:12:26 EDT ; Comment: Give with Food atorvastatin 40 mg tab : atorvastatin 40 mg tab ; Status: Ordered ; Ordered As Mnemonic: atorvastatin ; Simple Display Line: 40 mg, Oral, At Bedtime ; Ordering Provider: LANDEN ROCKWELL NP; Catalog Code: atorvastatin ; Order Dt/Tm: 12/27/2020 13:56:19 EDT gabapentin 600 mg tab : gabapentin 600 mg tab ; Status: Ordered ; Ordered As Mnemonic: gabapentin ; Simple Display Line: 600 mg, Oral, At Bedtime ; Ordering Provider: LANDEN ROCKWELL NP; Catalog Code: gabapentin ; Order Dt/Tm: 12/27/2020 13:53:47 EDT ; Comment: DO NOT TAKE within 2 hours of Antacids #NaCl 0.9% *FLUSH* inj 10 mL : #NaCl 0.9% *FLUSH* inj 10 mL ; Status: Ordered ; Ordered As Mnemonic: Normal Saline Flush ; Simple Display Line: 10 mL, IV Push, Q12H ; Ordering Provider: EMEKA MADERA MD-CAT; Catalog Code: sodium chloride ; Order Dt/Tm: 12/27/2020 15:01:09 EDT acetaminophen/HYDROcodone 325/5 mg tab : acetaminophen/HYDROcodone 325/5 mg tab ; Status: Ordered ; Ordered As Mnemonic: acetaminophen-HYDROcodone 325 mg-5 mg oral tablet ; Simple Display Line: 2 Tab, Oral, Q4H, PRN: Pain (Moderate 4-6) ; Ordering Provider: EMEKA MADERA MD-CAT; Catalog Code: acetaminophen-hydrocodone ; Order Dt/Tm: 12/27/2020 18:03:37 EDT ; Comment: Max daily Tylenol dose 4000 mg acetaminophen 325 mg tab : acetaminophen 325 mg tab ; Status: Ordered ; Ordered As Mnemonic: Tylenol ; Simple Display Line: 650 mg, Oral, Q4H, PRN: Temperature ; Ordering Provider: EMEKA MADERA MD-CAT; Catalog Code: acetaminophen ; Order Dt/Tm: 12/27/2020 18:03:44 EDT ; Comment: Temp GREATER than 101 F Do not exceed 4 gm Acetaminophen daily. albumin human 5% 12.5 g/250 mL inj : albumin human 5% 12.5 g/250 mL inj ; Status: Ordered ; Ordered As Mnemonic: albumin human 5% intravenous solution ; Simple Display Line: 12.5 Gram, 250 mL, IntraVENous, Daily, PRN: Other (See Comment) ; Ordering Provider: EMEKA MADERA MD-CAT; Catalog Code: albumin human ; Order Dt/Tm: 12/27/2020 18:03:24 EDT ; Comment: SBP </=90 & C.I. <2.0 albuterol-ipratropium inh 3 mL : albuterol-ipratropium inh 3 mL ; Status: Ordered ; Ordered As Mnemonic: DuoNeb 0.5 mg-2.5 mg/3 mL inhalation solution ; Simple Display Line: 3 mL, Nebulized Inhalation, RT_Q4H, PRN: Shortness of Breath ; Ordering Provider: EMEKA MADERA MD-CAT; Catalog Code: albuterol-ipratropium ; Order Dt/Tm: 12/27/2020 18:03:35 EDT dextrose 50% 25 g/50 mL inj syr : dextrose 50% 25 g/50 mL inj syr ; Status: Discontinued ; Ordered As Mnemonic: Dextrose ; Simple Display Line: 25 Gram, IV Push, 1-Time, PRN: Hypoglycemia ; Ordering Provider: FRANDY CARSON PA; Catalog Code: glucose ; Order Dt/Tm: 12/27/2020 18:03:25 EDT ; Comment: FSBG LESS than or EQUAL to 60: Stop Insulin Infusion, give patient 1 amp D50W and recheck FSBG in 15 minutes. If GREATER than 140, check in 15 minutes again. When FSBG GREATER than 140 X 2 then restart at 1/2 last rate. magnesium hydroxide 8% liq 30 mL : magnesium hydroxide 8% liq 30 mL ; Status: Ordered ; Ordered As Mnemonic: Milk of Magnesia 8% oral suspension ; Simple Display Line: 30 mL, Oral, Daily, PRN: Constipation ; Ordering Provider: EMEKA MADERA MD-CAT; Catalog Code: magnesium hydroxide ; Order Dt/Tm: 12/27/2020 18:03:42 EDT ondansetron 4 mg/2 mL inj : ondansetron 4 mg/2 mL inj ; Status: Ordered ; Ordered As Mnemonic: Zofran ; Simple Display Line: 4 mg, IV Push, Q4H, PRN: Nausea ; Ordering Provider: EMEKA MADERA MD-CAT; Catalog Code: ondansetron ; Order Dt/Tm: 12/27/2020 18:03:41 EDT oxyCODONE 5 mg tab : oxyCODONE 5 mg tab ; Status: Ordered ; Ordered As Mnemonic: oxyCODONE ; Simple Display Line: 5 mg, Oral, Q6H, PRN: Pain (Moderate 4-6) ; Ordering Provider: EMEKA MADERA MD-CAT; Catalog Code: oxyCODONE ; Order Dt/Tm: 12/27/2020 18:03:36 EDT potassium chloride : potassium chloride ; Status: Ordered ; Ordered As Mnemonic: potassium chloride 10 mEq/50 mL intravenous solution ; Simple Display Line: 10 mEq, 50 mL, 50 mL/Hr, IV Piggyback, Q1H, PRN: Other (See Comment) ; Ordering Provider: MOHAMMADZADEH, HAMID R, MD-CAT; Catalog Code: potassium chloride ; Order Dt/Tm: 12/27/2020 18:03:34 EDT ; Comment: For K+ less than or equal to 3.2 give 10 mEq times 4 runs; for 3.3 - 3.6 give 10 mEq times 3 runs; for 3.7 - 3.9 give 10 mEq times 2 runs sodium bicarbonate 50 mEq/50 ml inj syr : sodium bicarbonate 50 mEq/50 ml inj syr ; Status: Ordered ; Ordered As Mnemonic: sodium bicarbonate ; Simple Display Line: 50 mEq, IV Push, 1-Time, PRN: Other (See Comment) ; Ordering Provider: EMEKA MADERA MD-CAT; Catalog Code: sodium bicarbonate ; Order Dt/Tm: 12/27/2020 18:03:28 EDT ; Comment: PRN for Base Deficit of -5.0 to -6.9 sodium bicarbonate 50 mEq/50 ml inj syr : sodium bicarbonate 50 mEq/50 ml inj syr ; Status: Ordered ; Ordered As Mnemonic: sodium bicarbonate ; Simple Display Line: 100 mEq, IV Push, 1-Time, PRN: Other (See Comment) ; Ordering Provider: EMEKA MADERA MD-CAT; Catalog Code: sodium bicarbonate ; Order Dt/Tm: 12/27/2020 18:03:29 EDT ; Comment: PRN for Base Deficit -7.0 to -20. dextrose 50% 25 g/50 mL inj syr : dextrose 50% 25 g/50 mL inj syr ; Status: Ordered ; Ordered As Mnemonic: Dextrose ; Simple Display Line: 25 Gram, IV Push, 1-Time, PRN: Hypoglycemia ; Ordering Provider: EMEKA MADERA MD-CAT; Catalog Code: glucose ; Order Dt/Tm: 12/27/2020 15:01:09 EDT ; Comment: FSBG LESS than or EQUAL to 60: Stop Insulin Infusion, give patient 1 amp D50W and recheck FSBG in 15 minutes. If GREATER than 140, check in 15 minutes again. When FSBG GREATER than 140 X 2 then restart at 1/2 last rate. #NaCl 0.9% *FLUSH* inj 10 mL : #NaCl 0.9% *FLUSH* inj 10 mL ; Status: Ordered ; Ordered As Mnemonic: Normal Saline Flush ; Simple Display Line: 10 mL, IV Push, See Comment, PRN: IV Use ; Ordering Provider: EMEKA MADERA MD-CAT; Catalog Code: sodium chloride ; Order Dt/Tm: 12/27/2020 15:01:09 EDT ; Comment: Flush IV line q8h or as ordered by prescriber and/or after IV meds gabapentin 300 mg cap : gabapentin 300 mg cap ; Status: Ordered ; Ordered As Mnemonic: gabapentin ; Simple Display Line: 300 mg, Oral, Daily ; Ordering Provider: LANDEN ROCKWELL NP; Catalog Code: gabapentin ; Order Dt/Tm: 12/27/2020 13:53:50 EDT ; Comment: DO NOT TAKE within 2 hours of Antacids bisacodyl 10 mg supp : bisacodyl 10 mg supp ; Status: Ordered ; Ordered As Mnemonic: Dulcolax Laxative ; Simple Display Line: 10 mg, Rectal, Daily, PRN: Constipation ; Ordering Provider: DANYELLE WALTERS MD-CAR; Catalog Code: bisacodyl ; Order Dt/Tm: 12/27/2020 08:12:26 EDT ; Comment: If MOM INEFFECTIVE nitroglycerin 0.4 mg tab # 25 btl : nitroglycerin 0.4 mg tab # 25 btl ; Status: Ordered ; Ordered As Mnemonic: Nitrostat ; Simple Display Line: 0.4 mg, SubLINgual, Q5Min, PRN: Chest Pain ; Ordering Provider: DANYELLE WALTERS MD-CAR; Catalog Code: nitroglycerin ; Order Dt/Tm: 12/27/2020 08:12:26 EDT ; Comment: May Give X 3 PRN chest pain Do Not Crush--Dissolve under tongue Do Not Crush--Dissolve under tongue Home Meds atorvastatin : atorvastatin ; Status: Documented ; Ordered As Mnemonic: atorvastatin 40 mg oral tablet ; Simple Display Line: 1 Tab, Oral, Daily, for 90 Day(s), 0 Refill(s) ; Catalog Code: atorvastatin ; Order Dt/Tm: 12/31/2020 10:10:04 EDT lisinopril : lisinopril ; Status: Documented ; Ordered As Mnemonic: lisinopril 10 mg oral tablet ; Simple Display Line: 1 Tab, Oral, BID, 60 Tab, 0 Refill(s) ; Catalog Code: lisinopril ; Order Dt/Tm: 12/31/2020 10:10:04 EDT gabapentin : gabapentin ; Status: Documented ; Ordered As Mnemonic: gabapentin 300 mg oral capsule ; Simple Display Line: 1 Cap, Oral, Daily, for 90 Day(s), 0 Refill(s) ; Catalog Code: gabapentin ; Order Dt/Tm: 12/31/2020 10:06:44 EDT gabapentin : gabapentin ; Status: Documented ; Ordered As Mnemonic: gabapentin 300 mg oral capsule ; Simple Display Line: 2 Cap, Oral, Once a day (at bedtime), for 90 Day(s), 0 Refill(s) ; Catalog Code: gabapentin ; Order Dt/Tm: 12/31/2020 10:10:04 EDT amLODIPine : amLODIPine ; Status: Documented ; Ordered As Mnemonic: amLODIPine 5 mg oral tablet ; Simple Display Line: 1 Tab, Oral, Daily, for 30 Day(s), 0 Refill(s) ; Catalog Code: amLODIPine ; Order Dt/Tm: 12/31/2020 10:10:04 EDT clopidogrel : clopidogrel ; Status: Documented ; Ordered As Mnemonic: clopidogrel 75 mg oral tablet ; Simple Display Line: 1 Tab, Oral, Daily, for 90 Day(s), 0 Refill(s) ; Catalog Code: clopidogrel ; Order Dt/Tm: 12/31/2020 10:10:04 EDT Education Topics: Stroke Education (Plate Mounter) Stroke Education Handouts Given *Q : Yes Kathy Medrano RN - 01/10/2021 13:43 EDT documented in this encounter Plan of Treatment Not on file documented as of this encounter Visit Diagnoses Not on filedocumented in this encounter
--- OUTSIDE RECORDS SUMMARY | 2025-01-16 11:44 | XMS_ITS | Encounter Summary ---
Author Organization [facility] Address [address] [place] [address] Care Team Providers Care Refrigerator Crater Name Role Phone Unavailable Primary Care Provider Unavailabl e Encounter Details Date Type Department Care Team (Late st Contact Info) Description 01/15/2021 Transcribed Document [facility] [place] [facility] [place] [address] ProviderMacrina MD [address] [place] [address] Social History Tobacco Use Types Packs/Day Years Used Date Smoking Tobacco: Never Assessed Sex and Gender Information Value Date Recorded Sex Assigned at Not on file Legal Sex Male 1:13 PM CDT Gender Identity Not on file Sexual Orientation Not on file documented as of this encounter Miscellaneous Notes * Cerner Conversion Note - Macrina Cordova MD - 01/15/2021 1:49 PM CDT Patient: JOSE ADORNO Age: 80 [...] 0.5 MCG/KG/. Awake and following commands, positive hide splitter in bilateral hands. MRI brain yesterday revealed [...] 180s. 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 POST Vent day: 5, extubated 12/31/20 Reintubated 01/01/21, extubated 01/05 PICC Intake & Output Totals Last 24 Hours (7a-7a) Intake (30 Events) Medications (279 mL) Enteral Feeding Amount (600 mL) Output (3 Events) Spence Catheter (2375 mL) Input Total: 879 mL Output Total: 2375 mL Balance: -1496 mL Review of Systems Constitutional: Weakness, Fatigue. [...] Oral, BID, 60 Tab, 0 Refill(s), Medications (37) Active Scheduled: (18) #NaCl 0.9% *FLUSH* inj 10 mL 10 mL, IV Push, Q12H #NaCl 0.9% *FLUSH* inj 10 mL 10 mL, IV Push, Q8H aspirin 81 mg chew tab 81 mg 1 Tab, Oral, Daily atorvastatin 40 mg tab 40 mg 1 Tab, Oral, At Bedtime bumetanide 1 mg/4 mL inj 0.5 mg 2 mL, IV Push, BID clopidogrel 75 mg tab 75 mg 1 [...] IV Push, 1-Time Problem list: All Problems Aortic valve stenosis / SNOMED CT 912259127 / Confirmed Arthritis of right knee / SNOMED CT 2518195249 / Confirmed At risk for sleep apnea / IMO 77940429 / Confirmed At risk for violence / IMO 85476993 / Confirmed Chronic anxiety / SNOMED CT 849271884 / Confirmed Back pain, chronic / SNOMED CT 962511310 / Confirmed Colorectal surgery / SNOMED CT 0789273012 / Confirmed Disorder of prostate / SNOMED CT 94851253 / Confirmed GERD - Gastro-esophageal reflux disease / SNOMED CT 1916469501 / Confirmed H/O peripheral neuropathy / SNOMED CT 735073574 / Confirmed feet tingle all the time HTN - Hypertension / SNOMED CT 3863413323 / Confirmed Hyperlipidemia / SNOMED CT 60686665 / Confirmed Hypertension / SNOMED CT 32821120 / Confirmed Aortic stenosis, severe / SNOMED CT 6628416525 / Confirmed Resolved: Cancer of colon / SNOMED CT 9436923035, Active Problems (14) Aortic stenosis, severe Aortic [...] (JAN 15 05:40) 97.8 (JAN 14 20:24) 98.5 (JAN 14 17:04) Apical HR H 105 (JAN 15 09:18) H 105 (JAN 15 09:18) H 105 (JAN 15 09:18) Mon HR 113 (JAN 15 05:40) 94 (JAN 15 01:23) 113 (JAN 15 05:40) Resp Rate 16 (JAN 14 17:04) 16 (JAN 14 17:04) 16 (JAN 14 17:04) SBP 119 (DEC 22 05:40) 97 (DEC 21 17:04) 119 (JAN 15 05:40) DBP 79 (JAN 15 05:40) 63 (JAN 14 17:04) 79 (DEC 22 05:40) MAP 88 (JAN 15 05:40) 72 (JAN 14 17:04) 88 (DEC 22 05:40) SpO2 95 (JAN 14 19:50) 94 (JAN 14 17:04) 95 (JAN 14 19:50) Intake & Output Totals Last 24 Hours (7a-7a) Intake (30 Events) Medications (279 mL) Enteral Feeding Amount (600 mL) Output (3 Events) Spence Catheter (2375 mL) Input Total: 879 mL Output Total: 2375 mL Balance: -1496 mL General: Alert and oriented, No acute [...] Labs (Last four charted values) WBC H 11.2 (JAN 15) H 11.3 (JAN 14) H 11.9 (DEC 20) H 11.8 (JAN 12) HB L 10.5 (JAN 15) L 9.6 (JAN 14) L 9.5 (DEC 20) L 9.6 (DEC 19) HCT L 33.2 (DEC 22) L 29.9 (CESAR 21) L 29.4 (DEC 20) L 29.6 (DEC 19) Plt H 535 (CESAR 22) H 460 (CESAR 21) H 490 (CESAR 20) H 472 (CESAR 19) Na L 133 (CESAR 22) L 133 (CESAR 21) L 135 (CESAR 20) 138 (CESAR 19) K 5.0 (CESAR 22) 4.5 (CESAR 21) 4.4 (CESAR 20) 4.4 (CESAR 19) Cl L 100 (CESAR 22) L 101 (CESAR 21) L 101 (CESAR 20) 104 (CESAR 19) CO2 28 (CESAR 22) 29 (CESAR 21) 30 (CESAR 20) 29 (CESAR 19) BUN H 35 (CESAR 22) H 36 (CESAR 21) H 33 (CESAR 20) H 33 (CESAR 19) Cr 0.80 (CESAR 22) 0.80 (CESAR 21) 0.80 (CESAR 20) 0.70 (CESAR 19) Glu R 91 (CESAR 22) H 140 (CESAR 21) H 142 (CESAR 20) H 133 (CESAR 19) Ca 9.3 (CESAR 22) 8.5 (CESAR 21) 8.5 (CESAR 20) 8.7 (CESAR 19) Lactic 1.3 (CESAR 15) 1.0 (CESAR 13) 1.2 (CESAR 07) 1.4 (CESAR 06) PT 11.4 (CESAR 04) H 17.4 (CESAR 03) H 14.3 (CSEAR 03) H 18.7 (CESAR 03) INR 1.1 [...] 18) L 2.5 (CESAR 17) L 2.4 (DEC 16) Troponin <0.015 (DEC 25) . Blood Gases (Current Encounter/Past 24 Hours) No Blood Gas Results Found (Past 24 Hours) JAN 15 04:10 L 133 L 100 H 35 / 91 5.0 28 0.80 \ JAN 15 04:10 \ L 10.5 / H 11.2 H 535 / L 33.2 \ Blood Gases (Current Encounter/Past 24 Hours) No Blood Gas Results Found (Past 24 Hours) Radiology Results (Last 48 hours) [id number] -- 12/27/2020 06:39 CR Chest 1 Vw [...] transcribed report. CR Chest 1 Vw Portable (01/15/2021 06:15) Result: PORTABLE CHEST, ONE VIEW HISTORY: Pleural effusion.COMPARISON: One day earlier.FINDINGS: The lungs dykes are unchanged. There is no pneumothorax. The cardiac silhouette is stable. Support tubes and lines are stable. IMPRESSION: No significant change. Images reviewed, interpreted, and dictated by Dr. Alvin Portillo.Transcribed by [place] PA-C, R.T. (N), C [...] L. Still overall weak and fragile. -Recommend increasing activity, PT/OT and getting patient [...] benefit from inpatient rehab. Recommend transfer to [facility] for inpatient rehab. FULL CODE Prognosis - [...]
--- OUTSIDE RECORDS SUMMARY | 2025-01-16 11:44 | XMS_ITS | Encounter Summary ---
Author Organization [facility] Address [address] [place] [address] Care Team Providers Care Personal Care Worker Name Role Phone Unavailable Primary Care Provider Unavailabl e Encounter Details Date Type Department Care Team (Late st Contact Info) Description 01/16/2021 Transcribed Document [facility] [place] [facility] [place] [address] ProviderMacrina MD [address] [place] [address] Social History Tobacco Use Types Packs/Day Years Used Date Smoking Tobacco: Never Assessed Sex and Gender Information Value Date Recorded Sex Assigned at Not on file Legal Sex Male 1:13 PM CDT Gender Identity Not on file Sexual Orientation Not on file documented as of this encounter Miscellaneous Notes * Cerner Conversion Note - Macrina ProviderMD - 01/16/2021 5:30 PM CDT On Going Discharge Planning Entered On: 01/16/2021 17:33 EDT Performed On: 01/16/2021 17:30 EDT by ASHLEY CHAIDEZ RN-Securities ConsultantAccounting Officer Progress Note Discharge Arrangements : Patient Post-Acute Information Patient Name: JOSE ADORNO [facility]: [id number] Gender: Male : 38 Age: 80 Years No Post-Acute Placement(s) Listed No Post-Acute Service(s) Listed No [place] Referral(s) Listed Discharge Options Discussed with Patient : Acute rehabilitation, Discharge transportation Barriers to Discharge Identified : Clinical Condition of Patient, Follow-Up appointments needed Barriers to Discharge Unresolved : Clinical Condition of Patient Patient Offered Choice/Affiliations Explained : Yes List/Info Provided Pt/Fam/Support Person : Other: Acute Rehab Is the Patient Meeting Medical Necessity : Yes Physician Agreeable to Move Forward with D/C Plan? : Yes Did you Attend Multidisciplinary Rounds? : Yes ASHLEY CHAIDEZ RN-Securities Consultant - 01/16/2021 17:30 EDT Narrative Progress Note Narrative Progress Note : RAR Low ELOS: 3 days HD#20 Boost 6 80 year old male with history HTN, diagnosed with aotic stenosis a year ago but refused TVAR. He complained of declining functional capacity and easy fatiguability and presents for a TVAR. Consults: Pulmonary, CTS, Neurology 6/3 TVAR, Pericardial Window, emergent sternotomy for repair left ventricular tear, embolic stroke POD#20 O2 sat 96% on 2 liters. Telemetry NSR, right side hemiparesis, dysthria, Corpak with TF. Ambulated 12 feet around bed to chair with RWx modA. MBBS/LABOR CUSTODIAN: Recommend PEG, plan is placement tomorrow. DCP: [facility] after PEG placed. Patient has traditional MC will not need a PA. Plan to transport by [facility]. Historical Progress Note : RAR Low ELOS: 3 [...] with RWx modA. DCP: Referral made to [facility], patient's 1st choice, via [facility]. bao Barnes said her MD would accept patient but would like for his PEG to be placed prior to discharge. Patient has traditional Medicare so he will not need a preauth. ASHLEY CHAIDEZ RN-Securities Consultant - 01/14/21 15:53:43 HD#15; ELOS 3; LRR; BOOST 6; POD#15 - ElecTAVR/LVentTear/Tamponade = 02=1L; OS=147; TF/Corpak 50cc; voice improving; working w/ST for dysphagia; plan for repeat instrumental in 1 wk; ongoing therapy; spouse to provide choicing for STR; on transfer out of [facility]. SOPHY RM Rn-Securities Consultant - 01/11/21 09:38:52 HD#14; ELOS 3; LRR; BOOST 6; POD#14 - ElecTAVR/LVentTear/Tamponade = 02=2L; BIPAP prn; Duonebs; Cefepime/Zosyn; FEES today; Cardiology managing Tacycardia; per LOS recommendation - pt referred to LTAC; likely DCP subacute rehab; anticipate transfer to floor soon. SOPHY RM Rn-Securities Consultant - 01/10/21 08:19:07 HD#13; ELOS 3; LRR; BOOST 6; POD#13 - ElectiveTAVR/LVentTear/Tamponade - 02=2L; BIPAP prn for WOB/hs; Duonebs/IS/FVD encouraged; Patricio gtt; central line d/c 01/08/PICC placed; T=100; Maxipime; working with therapy - very weak; Mod-Max A x2 to EOB - not safe to stand; ST - failed/ongoing dysphagia tx; Corpak/TF; DCP rehab - improving. SOPHY RM Rn-Securities Consultant - 01/09/21 07:48:59 HD#12; ELOS 3; LRR; BOOST 6; POD #12 - Electiv TAVR/LVentTear/Cardiac Tamponade SOPHY RM Rn-Securities Consultant - 01/08/21 14:56:21 HD#12; ELOS 3; LRR; BOOST 6; POD #12 - Electiv TAVR/LVentTear/Cardiac Tamponade/Embolic Strokes w/ R side weakness; RA; IS/FVD encouraged; report pt with delerium/lethargy overnight - pulled out IV; PICC ordered today; R arm weakness; Corpak/TF - failed ST evaluation - improving; DCP Rehab; continue to follow SOPHY RM Rn-Securities Consultant - 01/08/21 14:58:32 HD#11; ELOS 3; MRR; BOOST 6; POD#11 - Elective TAVR/LVentTear/Cardiac Tamponade; 02=2L; Maxipime/Ancef; IV Bumex; working w/therapy and stood at side of bed; SOPHY RM Rn-Securities Consultant - 01/07/21 14:34:53 HD#11; ELOS 3; MRR; BOOST 6; POD#11 - Elective TAVR/LVentTear/Cardiac Tamponade; 02=2L; Maxipime/Ancef; IV Bumex; working w/therapy and stood at side of bed; ST - ongoing rec for NPO r/t dysphagia - tx; instrumental 3-4 days; Corpak/TF; DCP anticipate rehab; initial referrals placed thru [facility] and list w/post acute star ratings provided to pt for choicing. SOPHY RM Rn-Securities Consultant - 01/07/21 14:36:37 HD#8; ELOS 3; LRR; BOOST 6; POD#8 - Elec TAVR/LVentTear/Cardiac Tamponade - intubated fi02 100; awake/calm/following commands; bronchoscopy scheduled today; SBT; T=101.2; MRI - diffuse scattered bilateral infarcts; Dr. Navarro states during MDR that if pt is unable to successfully wean over weekend will need trach/peg consult on Thursday; continue to follow; will need therapy evaluations when extubated. SOPHY RM Rn-Securities Consultant - 01/04/21 15:16:12 HD#7; ELOS 3; LRR; BOOST 6; POD#7 - Elective TAVR/LVentTear/CardiacTamponade/Arrest - intubated fi02 40/peep 8; SBT x 2 hr; Fent/Precedex gtt; Corpak/TF; Humza CT in place; Neurology following - MRI diffuse scattered bilateral infarcts; pt w/improvement in movement of R side; PT/OT evaluations when extubated; DCP TBD - likely rehab. SOPHY RM Rn-Securities Consultant - 01/03/21 15:03:09 HD#6; ELOS 3; LRR; BOOST 6; POD #6 - Electiv TAVR/L Vent Tear/Cardiac Tamponode/Arrest - reintubated 01/01; fi02 40; Levo/Fent/Precedex gtt; wean sedation - on SBT 2hr TID; T=99.9; Dr. Navarro states during MDR that pt's spouse aware may need trach/peg; DCP TBD pending progress. SOPHY RM Rn-Securities Consultant - 01/02/21 14:55:12 HD#5; ELOS 3; LRR; BOOST 6; POD #5 - Elective TAVR/L Ventrial Tear/Cardiac Tamponode; extubated on 12/31 required reintubation today fi02 60/peep 8; Precedex/Fent gtt; Corpak/TF; IV Zosyn; CT draining; T=100; DCP TBD pending progress; will need therapy evals when appropriate. SOPHY RM Rn-Securities Consultant - 01/01/21 14:47:57 HD#4; ELOS 3; LRR; POD#4 - Electiv TAVR; L Ventrical Tear; intubated fi02 50; Cardene gtt; Corpak to be placed and TF initiated; SBT today; following commands; Head MRI ordered; possible extubation post MRI; no movement noted on R side; will need PT/OT evaluations when extubated; DCP pending progress - likely rehab. SOPHY RM Rn-Securities Consultant - 12/31/20 14:58:43 DCP TBD - pending progress; OP Cardiac Rehab referral placed thru [facility]. SOPHY RM Rn-Securities Consultant - 12/28/20 12:42:03 ASHLEY CHAIDEZ RN-Securities Consultant - 01/16/2021 17:30 EDT documented in this encounter Plan of Treatment Not on file documented as of this encounter Visit Diagnoses Not on filedocumented in this encounter
--- OUTSIDE RECORDS SUMMARY | 2025-01-16 11:44 | XMS_ITS | Encounter Summary ---
Author Organization [facility] Address [address] [place] [address] Care Team Providers Care Judge'S Clerk Name Role Phone Unavailable Primary Care Provider Unavailabl e Encounter Details Date Type Department Care Team (Late st Contact Info) Description 01/10/2021 Transcribed Document [facility] [place] Family Medicine [address] [place] [address] ProviderMacrina MD [address], [place] [id number] Social History Tobacco Use Types Packs/Day Years Used Date Smoking Tobacco: Never Assessed Sex and Gender Information Value Date Recorded Sex Assigned at Not on file Legal Sex Male 1:13 PM CDT Gender Identity Not on file Sexual Orientation Not on file documented as of this encounter Miscellaneous Notes * Cerner Conversion Note - Macrina ProviderMD - 01/10/2021 8:17 AM CDT On Going Discharge Planning Entered On: 01/10/2021 8:19 EDT Performed On: 01/10/2021 8:17 EDT by SOPHY RM Rn-Hydraulic Auto Jack MechanicBrimming Machine Operator Progress Note Discharge Arrangements : [...] : Clinical Condition of Patient SOPHY RM Rn-Hydraulic Auto Jack Mechanic - 01/10/2021 8:17 EDT Narrative Progress Note Narrative Progress Note : HD#14; ELOS 3; LRR; BOOST 6; POD#14 - ElecTAVR/LVentTear/Tamponade = 02=2L; BIPAP prn; Duonebs; Cefepime/Zosyn; FEES today; Cardiology managing Tacycardia; per LOS recommendation - pt referred to LTAC; likely DCP subacute rehab; anticipate transfer to floor soon. Historical Progress Note : HD#13; ELOS 3; LRR; BOOST 6; POD#13 - ElectiveTAVR/LVentTear/Tamponade - 02=2L; BIPAP prn for WOB/hs; Duonebs/IS/FVD encouraged; Patricio gtt; central line d/c 01/08/PICC placed; T=100; Maxipime; working with therapy - very weak; Mod-Max A x2 to EOB - not safe to stand; ST - failed/ongoing dysphagia tx; Corpak/TF; DCP rehab - improving. SOPHY RM Rn-Hydraulic Auto Jack Mechanic - 01/09/21 07:48:59 HD#12; ELOS 3; LRR; BOOST 6; POD #12 - Electiv TAVR/LVentTear/Cardiac Tamponade SOPHY RM, Rn-Hydraulic Auto Jack Mechanic - 01/08/21 14:56:21 HD#12; ELOS 3; LRR; BOOST 6; POD #12 - Electiv TAVR/LVentTear/Cardiac Tamponade/Embolic Strokes w/ R side weakness; RA; IS/FVD encouraged; report pt with delerium/lethargy overnight - pulled out IV; PICC ordered today; R arm weakness; Corpak/TF - failed ST evaluation - improving; DCP Rehab; continue to follow SOPHY RM, Rn-Hydraulic Auto Jack Mechanic - 01/08/21 14:58:32 HD#11; ELOS 3; MRR; BOOST 6; POD#11 - Elective TAVR/LVentTear/Cardiac Tamponade; 02=2L; Maxipime/Ancef; IV Bumex; working w/therapy and stood at side of bed; SOPHY RM, Rn-Hydraulic Auto Jack Mechanic - 01/07/21 14:34:53 HD#11; ELOS 3; MRR; BOOST 6; POD#11 - Elective TAVR/LVentTear/Cardiac Tamponade; 02=2L; Maxipime/Ancef; IV Bumex; working w/therapy and stood at side of bed; ST - ongoing rec for NPO r/t dysphagia - tx; instrumental 3-4 days; Corpak/TF; DCP anticipate rehab; initial referrals placed thru [facility] and list w/post acute star ratings provided to pt for choicing. SOPHY RM Rn-Hydraulic Auto Jack Mechanic - 01/07/21 14:36:37 HD#8; ELOS 3; LRR; BOOST 6; POD#8 - Elec TAVR/LVentTear/Cardiac Tamponade - intubated fi02 100; awake/calm/following commands; bronchoscopy scheduled today; SBT; T=101.2; MRI - diffuse scattered bilateral infarcts; Dr. Navarro states during MDR that if pt is unable to successfully wean over weekend will need trach/peg consult on Thursday; continue to follow; will need therapy evaluations when extubated. SOPHY RM Rn-Hydraulic Auto Jack Mechanic - 01/04/21 15:16:12 HD#7; ELOS 3; LRR; BOOST 6; POD#7 - Elective TAVR/LVentTear/CardiacTamponade/Arrest - intubated fi02 40/peep 8; SBT x 2 hr; Fent/Precedex gtt; Corpak/TF; Humza CT in place; Neurology following - MRI diffuse scattered bilateral infarcts; pt w/improvement in movement of R side; PT/OT evaluations when extubated; DCP TBD - likely rehab. SOPHY RM Rn-Hydraulic Auto Jack Mechanic - 01/03/21 15:03:09 HD#6; ELOS 3; LRR; BOOST 6; POD #6 - Electiv TAVR/L Vent Tear/Cardiac Tamponode/Arrest - reintubated 01/01; fi02 40; Levo/Fent/Precedex gtt; wean sedation - on SBT 2hr TID; T=99.9; Dr. Navarro states during MDR that pt's spouse aware may need trach/peg; DCP TBD pending progress. SOPHY RM, Rn-Hydraulic Auto Jack Mechanic - 01/02/21 14:55:12 HD#5; ELOS 3; LRR; BOOST 6; POD #5 - Elective TAVR/L Ventrial Tear/Cardiac Tamponode; extubated on 12/31 required reintubation today fi02 60/peep 8; Precedex/Fent gtt; Corpak/TF; IV Zosyn; CT draining; T=100; DCP TBD pending progress; will need therapy evals when appropriate. SOPHY RM Rn-Hydraulic Auto Jack Mechanic - 01/01/21 14:47:57 HD#4; ELOS 3; LRR; POD#4 - Electiv TAVR; L Ventrical Tear; intubated fi02 50; Cardene gtt; Corpak to be placed and TF initiated; SBT today; following commands; Head MRI ordered; possible extubation post MRI; no movement noted on R side; will need PT/OT evaluations when extubated; DCP pending progress - likely rehab. SOPHY RM Rn-Hydraulic Auto Jack Mechanic - 12/31/20 14:58:43 DCP TBD - pending progress; OP Cardiac Rehab referral placed thru [facility]. SOPHY RM Rn-Hydraulic Auto Jack Mechanic - 12/28/20 12:42:03 SOPHY RM Rn-Hydraulic Auto Jack Mechanic - 01/10/2021 8:17 EDT documented in this encounter Plan of Treatment Not on file documented as of this encounter Visit Diagnoses Not on filedocumented in this encounter
--- OUTSIDE RECORDS SUMMARY | 2025-01-16 11:44 | XMS_ITS | Encounter Summary ---
Author Organization [facility] Address [address] [place] [id number] Care Team Providers Care Passenger Booking Clerk Name Role Phone Unavailable Primary Care Provider Unavailabl e Encounter Details Date Type Department Care Team (Late st Contact Info) Description 12/31/2020 Transcribed Document [facility] Pulm & Critical Care Medicine [address] [place] [address] [address] [place] [address] Erick Navarro MD [address] [facility] [address] [place] [address] Social History Tobacco Use Types Packs/Day Years Used Date Smoking Tobacco: Never Assessed Sex and Gender Information Value Date Recorded Sex Assigned at Not on file Legal Sex Male 1:13 PM CDT Gender Identity Not on file Sexual Orientation Not on file documented as of this encounter Miscellaneous Notes * Cerner Conversion Note - Erick Navarro MD - 12/31/2020 6:07 PM EDT Patient: JOSE ADORNO Age: 80 [...] WBC 13.1, low grade temp 101.1 temp. 6/7: Remains intubated without sedated on PS trial. [...] 32, follows commands appropriately discussed with Dr. sainz , and on amiodarone however QTC is [...] patient is a high risk for intubation ICU day: 5 Vent day: 5 TLDL 12/27 Review of Systems Unable to [...] Nebulized Inhalation, RT_Q4H, PRN: Shortness of Breath Lasix: 10 mg, IV Push, 1-Time Milk of Magnesia 8% oral suspension: 30 [...] Daily Protonix: 40 mg, IV Push, Daily Senokot S: 1 Tab, Oral, BID Tylenol: 650 mg, Oral, Q4H, PRN: Temperature Zofran: 4 mg, IV Push, Q4H, PRN: Nausea Zosyn + Sodium Chloride 0.9% intravenous solution 100 mL: 3.375 Gram, 33.33 mL/Hr, IV Piggyback, Q6H acetaminophen-HYDROcodone 325 mg-5 mg oral tablet: 2 Tab, Oral, Q4H, PRN: Pain (Moderate 4-6) albumin human 5% intravenous solution: 12.5 Gram, 250 mL, IntraVENous, Daily, PRN: Other (See Comment) ascorbic acid: 500 mg, Oral, BID aspirin: [...] IV Piggyback, Q1H, PRN: Other (See Comment) sodium bicarbonate: 100 mEq, IV Push, 1-Time, [...] Tab, 0 Refill(s), Medications (37) Active Scheduled: (16) #NaCl 0.9% *FLUSH* inj 10 mL 10 mL, IV Push, Q12H amLODIPine 10 mg tab 10 mg 1 Tab, Oral, Daily ascorbic acid 500 mg tab 500 mg 1 Tab, Oral, BID aspirin 81 mg chew tab 81 mg 1 Tab, Oral, Daily atorvastatin 40 mg tab 40 mg 1 Tab, Oral, At Bedtime ceFAZolin/D5w 2 Gram 50 mL, IV Piggyback, 1-Time furosemide 20 mg/2 mL inj 10 mg 1 mL, IV Push, 1-Time gabapentin 300 mg cap 300 mg [...] Medical Aortic valve stenosis / SNOMED CT 641184792 / Confirmed At risk for sleep apnea / IMO [id number] / Confirmed Colorectal surgery / SNOMED CT 3831318862 / Confirmed HTN - Hypertension / SNOMED CT 5385193880 / Confirmed, Active Problems (13) Aortic stenosis, severe Aortic valve stenosis Arthritis of right knee At risk for sleep apnea Back pain, chronic Chronic anxiety Colorectal surgery Disorder of prostate GERD - Gastro-esophageal reflux disease H/O peripheral neuropathy HTN - Hypertension Hyperlipidemia Hypertension Physical Examination VS/Measurements Vitals Signs (last 24 hrs) Last Charted Minimum Maximum Apical HR 76 (DEC 31 08:18) 76 (DEC 31 08:18) 88 (DEC 30 20:19) Mon HR 84 (DEC 31 16:30) 66 (DEC 31 09:00) 98 (DEC 30 18:00) Resp Rate H 22 (DEC 31 16:30) L 0 (DEC 31 04:30) H 28 (DEC 30 18:00) SBP 137 (DEC 31 16:30) 125 (DEC 31 12:30) H 171 (DEC 31 08:00) DBP 72 (DEC 31 16:30) 61 (DEC 30 20:00) 81 (DEC 31 08:00) MAP 98 (DEC 31 16:30) 87 (DEC 31 12:30) 116 (DEC 31 08:00) SpO2 95 (DEC 31 16:30) L 89 (DEC 31 14:30) 100 (DEC 31 04:30) Intake & Output Totals Last 24 Hours (7a-7a) Intake (83 Events) Continuous Infusions (2125.08 mL) Medications (436 mL) Other Intake (150 mL) Output (16 Events) Chest Tube Output: (220 mL) Spence Catheter (2175 mL) Input Total: 2711.08 mL Output Total: 2395 mL Balance: 316.08 mL General: Intubated without sedated. RASS 0, CAM +. . Eye: Pupils are equal, round and reactive to light, Normal conjunctiva. HENT: Normocephalic, Oral ET tube. Mouth: Oral mucosa ( Dry ). Neck: Supple, No lymphadenopathy. Respiratory: Breath sounds are equal, Coarse breath sounds bilaterally with diminished breath sounds in bilateral bases.. Support: Chest tube ( X2 ), Ventilator. Cardiovascular: Normal rate, Regular rhythm, No edema. Gastrointestinal: Soft, Non-distended. Bowel sounds: All four quadrants, Diminished. Support: Gastric tube ( Nasal ). Genitourinary: Support: Urinary catheter ( Indwelling ). Musculoskeletal: No swelling, No deformity. Integumentary: Warm, Dry. Integumentary exam: Pale. Neurologic: Intubated without sedated. Awakens to voice, follows commands on L side only. Very limited movement noted from R side right lower, and none in right upper ext. Psychiatric: Unable to assess. Review / Management Results review: Labs (Last four charted values) WBC H 13.4 (CESAR 07) H 13.1 (CESAR 06) H 12.8 (CESAR 06) H 10.8 (CESAR 05) HB L 8.4 (CESAR 07) L 8.6 (CESAR 06) L 8.6 (CESAR 06) L 8.2 (CESAR 06) HCT L 25.8 (CESAR 07) L 26.1 (CESAR 06) L 26.0 (CESAR 06) L 24.1 (CESAR 06) Plt L 108 (CESAR 07) L 60 (CESAR 06) L 70 (CESAR 06) L 96 (CESAR 05) Na 141 (CESAR 07) 142 (CESAR 07) 142 (CESAR 06) 143 (CESAR 06) K 3.8 (CESAR 07) 3.8 (CESAR 07) L 3.0 (CESAR 07) L 3.3 (CESAR 06) Cl 108 (CESAR 07) 107 (CESAR 07) 110 (CESAR 06) 109 (CESAR 06) CO2 28 (CESAR 07) 28 (CESAR 07) 27 (CESAR 06) 30 (CESAR 06) BUN H 28 (CESAR 07) H 29 (CESAR 07) H 25 (CESAR 06) H 24 (CESAR 06) Cr 0.70 (CESAR 07) 0.70 (CESAR 07) 0.70 (CESAR 06) 0.80 (CESAR 06) Glu R 99 (CESAR 07) H 119 (CESAR 07) H 160 (CESAR 06) H 175 (CESAR 06) Ca L 8.3 (CESAR 07) L 8.2 (CESAR 07) L 7.9 (CESAR 06) L 7.7 (CESAR 06) Lactic 1.2 (CESAR 07) 1.4 (CESAR 06) 1.4 (CESAR 06) 1.7 (CESAR 06) PT 11.4 (CESAR 04) H 17.4 (CESAR 03) H 14.3 (CESAR 03) H 18.7 (CESAR 03) INR 1.1 (CESAR 04) H 1.7 (CESRA 03) H 1.4 (CESAR 03) H 1.8 (CESAR 03) PTT 27.8 (CESAR 05) H 62.4 (CESAR 03) H 37.3 (CESAR 03) H 55.9 (DEC 03) AST H 78 (CESAR 06) H 125 (CESAR 05) H 141 (CESAR 04) H 179 (CESAR 03) ALT 35 (CESAR 06) 58 (CESAR 05) H 85 (CESAR 04) H 108 (CESAR 03) ALK P 64 (CESAR 06) 55 (CESAR 05) 53 (CESAR 04) 46 (CESAR 03) T Bili H 2.2 (DEC 06) H 1.3 (CESAR 05) H 2.2 (DEC 04) H 1.5 (DEC 03) PTN L 5.2 (DEC 06) L 4.6 (DEC 05) L 4.8 (DEC 04) L 4.3 (DEC 03) ALB L 2.4 (DEC 06) L 2.4 (DEC 05) L 2.7 (DEC 04) L 2.6 (DEC 03) Troponin <0.015 (DEC 25) . Blood Gases (Current Encounter/Past 24 Hours) No Blood Gas Results Found (Past 24 Hours) DEC 31 15:30 141 108 H 28 / 99 3.8 28 0.70 \ DEC 31 15:30 \ L 8.4 / H 13.4 L 108 / L 25.8 \ Blood Gases (Current Encounter/Past 24 Hours) No Blood Gas Results Found (Past 24 Hours) Radiology Results (Last 48 hours) [id number] -- 12/27/2020 06:39 CR Chest 1 Vw Portable (12/30/2020 04:29) [...] Dr. Sonny Alva.Transcribed by [place] PA-C, Mynor (N), Kieran Bishop T.I have personally viewed, interpreted and dictated the examination. Ihave read and agree with the above final transcribed report. CR Abdomen 1 Vw Portable (12/31/2020 12:33) Result: KUB HISTORY: Feeding tube placement.FINDINGS: The feeding tube is identified below the diaphragm. The bowelgas pattern is nonspecific. Moderate pleural effusions are noted.IMPRESSION: Feeding tube tip terminates in the second portion of theduodenum.Moderate pleural effusions.Images reviewed, interpreted, and dictated by Dr. Sonny Alva.Transcribed by [place] PA-C, Karthikeyan. (N), C N M T.I have personally viewed, interpreted and dictated the examination. Ihave read and agree with the above final transcribed report. CR chest 12/31 reviewed and patient has left lower lobe consolidation increasing bilateral pleural effusion increased vascular marking bilaterally ET tube in appropriate place CR abdomen CorPak is in the second portion of the duodenum 12/14/2020 PFTS SPIROMETRY: 1. FVC 3.77 L, [...] mmHg; Mean P mmHg. Microbiology respiratory culture is pending Blood culture is pending Antibiotic Zosyn started 12/31 stopped 01/05 Impression and Plan Pulm and CCM Attending Note: I have performed personally face to face diagnostic evaluation of this patient, labs and radiology data were reviewed. Patient condition was reviewed in details during multidisciplinary Intensive care rounds with team, including critical care team, CCRN, RT., Chemical Treatment Plant Technician , case management and clinical pharmacist. I [...] will monitor and reevaluate discussed with cardiology ET tube with minimal secretions, patient had fair cough upon suctioning, RSB I 32, follows commands on the left with moving his left upper extremity and shrugging his left shoulder, patient was extubated however 1 hour from extubation saturation decreased to 80s requirement of oxygen increased patient's appears with increased secretion and able to cough I did NTS with coud?? catheter in place patient on a BiPAP as well as proceeded with diuresis I discussed with patient's and high likelihood for invasive mechanical ventilation again Pulmonary Acute hypoxic respiratory failure: improved ---extubated ----> 12/31 then required NIPPV , poor cough secondary to PEA arrest Volume overload vs. TRALI due to multiple blood transfusion bilateral atelectasis and effusions acute pulm edema Patient received more than 20 L including [...] onset A fib; now sinus rhythm - on Amio gtt Hx of diastolic heart failure History of hypertension Prolonged QTc Heme Acute blood loss anemia Left ventricular tear complicated by pericardial tamponade and hemopericardium Thrombocytopenia - improving, s/p transfusion on 12/30 Leukocytosis - worsening Renal Metabolic acidosis due to lactic acid ; improved Electrolyte disturbances Hypernatremia - resolved ID Leukocytosis - worsening COVID-19 negative Endocrine Glycemic control Neuro Sedated on vent, only moving L side acute encephalopathy physical deconditioning right upper ext flaccid and right lower exts weakness : possible CVA however need Neuro eval if no improvement Plan: Vent bundle Duonebs prn Daily SAT/SBT trial - RSBI 32 --- minimal secretions ETT , and left sided strength was acceptable ----> extubated apply NIPPV 09/05 rate 18 keep sat > 92% Hemodynamics: Stable, off pressors CTS following -CT management Cardiology following -Stop Amio secondary to prolonged QTc discussed with CTS and cardiology Pneumonia panel Zosyn x5 days for possible aspiration LLL infiltrate Albumin 12.5gm IV x1 Lasix 20mg IV x1 repeat 40 mg IV x 1 in the afternoon Give additional KCl 40mEq PO x1. Repeat level at 1300 Check Mg now and at [address] and initiate TF per dietary hold for now while on NIPPV : started emergently Prophylaxis: Protonix, SCDs -Anticoagulation per CTS CXR and labs in AM NTS with daily/Olmsted catheter as needed Head of bed elevation more than 45 degree thank you Full code Prognosis is guarded high risk for reintubation Disposition intensive care unit I discussed with cardiothoracic surgery LUCÍA Stinson, I discussed with Dr. Sainz award machine operator, possible need for neurology consultation will defer to cardiology at this time Patient was evaluated multiple times during the day 10 with the patient at bedside upon failure requiring noninvasive positive pressure ventilation total critical care time is 90 minutes cydney documented in this encounter Plan of Treatment Not on file documented as of this encounter Visit Diagnoses Not on filedocumented in this encounter
--- OUTSIDE RECORDS SUMMARY | 2025-01-16 11:44 | XMS_ITS | Encounter Summary ---
[facility] Address [address] [place] [address] Care Team Providers Care Market Research Senior Project Manager Name Role Phone Unavailable Primary Care Provider Unavailabl e Encounter Details Date Type Department Care Team (Late st Contact Info) Description 01/03/2021 Transcribed Document [facility] [place] [address] ProviderMacrina MD [address] [place], [place] [id number] Social History Tobacco Use Types Packs/Day Years Used Date Smoking Tobacco: Never Assessed Sex and Gender Information Value Date Recorded Sex Assigned at Not on file Legal Sex Male 1:13 PM CDT Gender Identity Not on file Sexual Orientation Not on file documented as of this encounter Miscellaneous Notes * Cerner Conversion Note - Macrina Cordova MD - 01/03/2021 12:52 PM CDT Patient: JOSE ADORNO Age: 80 years Sex: Male : 1940 Associated Diagnoses: None Author: LANDON GIVENS APRN Referring physician: Dr. Gomez Reason for consult: [...] Tolerating tube feeding at 40mL/hr. Last BM 6/7. tolerated weaning trial x 2 hours, he is on 01/03: Remains intubated and sedated with Fentanyl and Precedex. Awake and following commands, positive technical research scientist in bilateral hands. 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 Hemodynamically stable, Tmax 100.4. Leukocytosis worsening. Creatinine stable, 2.3L UOP and -1.1L I&Os. Tolerating TF. Pneumonia panel + for Klebsiella. ICU day: 8 Vent day: 5, extubated 12/31 Reintubated 01/01 TLDL 12/27 Review of Systems Unable to [...] Inhalation, RT_Q4H, PRN: Shortness of Breath Lasix: 20 mg, IV Push, Q8H Milk of Magnesia 8% oral suspension: 30 mL, Oral, Daily, PRN: Constipation MiraLax: 17 Gram, Oral, Daily NORepinephrine injection 4 mg + NaCl 0.9% [...] mL, IntraVENous, Daily, PRN: Other (See Comment) albumin human: 12.5 Gram, IV Piggyback, Q8H aspirin: 81 mg, Oral, Daily atorvastatin: 40 [...] Q6H lactobacillus acidophilus: 1 Cap, Oral, BID morphine: 1 mg, IV Push, [...] Oral, BID, 60 Tab, 0 Refill(s), Medications (36) Active Scheduled: (15) #NaCl 0.9% *FLUSH* inj 10 mL 10 mL, IV Push, Q12H albumin human 25% 12.5 g/50 mL inj 12.5 Gram 50 mL, IV Piggyback, Q8H aspirin 81 mg chew tab 81 mg 1 Tab, Oral, Daily atorvastatin 40 mg tab 40 mg 1 Tab, Oral, At Bedtime ceFAZolin/D5w 2 Gram 50 mL, IV Piggyback, 1-Time docusate sod 100 mg/10 mL liq 100 mg 10 mL, Oral, BID furosemide 20 mg/2 mL inj 20 mg 2 mL, IV Push, Q8H gabapentin 300 mg cap 300 mg 1 Cap, Oral, Daily gabapentin 600 mg tab 600 mg 1 Tab, Oral, At Bedtime insulin regular 1 unit/0.01 mL inj 3mL 50 kg - 75 kg scale, SubCutaneous, Q6H lactobacillus acidophilus cap 1 Cap, Oral, BID pantoprazole 40 mg inj 40 mg, IV Push, Daily piperacillin-tazobactam + NaCl 0.9% 100 mL 3.375 Gram, IV Piggyback, Q6H polyethylene glycol 3350 pwd 17 g [...] Problems Aortic valve stenosis / SNOMED CT 326075168 / Confirmed Arthritis of right knee / SNOMED CT 1153303478 / Confirmed At risk for sleep apnea / IMO [id number] / Confirmed Chronic anxiety / SNOMED CT 172354314 / Confirmed Back pain, chronic / SNOMED CT 966622939 / Confirmed Colorectal surgery / SNOMED CT 0958509385 / Confirmed Disorder of prostate / SNOMED CT 37686021 / Confirmed GERD - Gastro-esophageal reflux disease / SNOMED CT 2182947866 / Confirmed H/O peripheral neuropathy / SNOMED CT 712643618 / Confirmed feet tingle all the time HTN - Hypertension / SNOMED CT 5649002312 / Confirmed Hyperlipidemia / SNOMED CT 22820713 / Confirmed Hypertension / SNOMED CT 27154325 / Confirmed Aortic stenosis, severe / SNOMED CT 0455427671 / Confirmed Resolved: Cancer of colon / SNOMED CT 2281334109, Active Problems (13) Aortic stenosis, severe Aortic valve stenosis Arthritis of right knee At risk for sleep apnea Back pain, chronic Chronic anxiety Colorectal surgery Disorder of prostate GERD - Gastro-esophageal reflux disease H/O peripheral neuropathy HTN - Hypertension Hyperlipidemia Hypertension Physical Examination VS/Measurements Vitals Signs (last 24 hrs) Last Charted Minimum Maximum Mon HR 72 (JAN 03) 57 (JAN 03 04:) 75 (JAN 03 05:22) Resp Rate L 11 (JAN 03) L 8 (JAN 02 22:00) H 49 (JAN 02 14:00) SBP 132 (JAN 03 08:00) 94 (JAN 03 04:00) H 150 (JAN 03 05:00) DBP 71 (JAN 03 08:00) L 52 (JAN 03 02:00) 73 (JAN 02 17:00) MAP 96 (JAN 03 08:) 68 (JAN 03 04:00) 104 (JAN 03 05:00) SpO2 99 (JAN 03:) 96 (JAN 02 15:00) 100 (JAN 02 14:00) Intake & Output Totals Last 24 Hours (7a-7a) Intake (86 Events) Continuous Infusions (441.1858 mL) Medications (449.21 mL) Other Intake (440 mL) Output (23 Events) Chest Tube Output: (160 mL) Spence Catheter (2310 mL) Input Total: 1330.3958 mL Output Total: 2470 mL Balance: -1139.6042 mL General: Intubated and sedated. Eye: Pupils are equal, [...] Labs (Last four charted values) WBC H 9.6 (DEC 10) 9.0 (JAN 02) H 11.7 (DEC 08) H 13.4 (DEC 31) HB L 8.1 (JAN 03) L 7.7 (JAN 02) L 8.7 (CESAR 08) L 8.8 (CESAR 07) HCT L 25.5 (CESAR 10) L 24.1 (CESAR 09) L 26.5 (CESAR 08) L 26.2 (CESAR 07) Plt L 147 (CESAR 10) 163 (CESAR 09) L 146 (CESAR 08) L 108 (CESAR 07) Na 145 (CESAR 10) 143 (CESAR 09) 143 (CESAR 08) 142 (CESAR 07) K 3.7 (CESAR 10) 3.7 (CESAR 09) 3.6 (CESAR 08) L 3.3 (CESAR 07) Cl 112 (CESAR 10) 111 (CESAR 09) 108 (CESAR 08) 107 (CESAR 07) CO2 30 (CESAR 10) 31 (CESAR 09) 28 (CESAR 08) 27 (CESAR 07) BUN H 34 (CESAR 10) H 39 (CESAR 09) H 26 (CESAR 08) H 25 (CESAR 07) Cr 0.80 (CESAR 10) 0.80 (CESAR 09) 0.70 (CESAR 08) 0.80 (CESAR 07) Glu R H 138 (CESAR 10) H 129 (CESAR 09) 80 (CESAR 08) 86 (CESAR 07) Ca L 7.7 (CESAR 10) L 7.8 (CESAR 09) L 8.3 (CESAR 08) L 8.0 (CESAR 07) Lactic 1.2 (CESAR 07) 1.4 [...] 03) H 55.9 (CESAR 03) AST H 39 (CESAR 10) 32 (CESAR 09) H 50 (CESAR 08) H 78 (CESAR 06) ALT 33 (CESAR 10) 28 (CESAR 09) 33 (CESAR 08) 35 (CESAR 06) ALK P 73 (CESAR 10) 65 (CESAR 09) 71 (CESAR 08) 64 (CESAR 06) T Bili H 1.3 (CESAR 10) H 1.7 (CESAR 09) H 2.3 (CESAR 08) H 2.2 (CESAR 06) PTN L 5.3 (CESAR 10) L 5.1 (JAN 02) L 5.8 (JAN 01) L 5.2 (DEC 30) ALB L 2.1 (JAN 03) L 2.0 (JAN 02) L 2.5 (JAN 01) L 2.4 (DEC 30) Troponin <0.015 (DEC 25) . Blood Gases (Current Encounter/Past 24 Hours) pH Art 7.46 HI 01/03/2021 07:48 pCO2 Art 41.1 01/03/2021 04:20 pO2 Art 76.4 LOW 01/03/2021 07:48 HCO3 Art 29.0 HI 01/03/2021 07:48 BE Art 4.7 HI 01/03/2021 07:48 sO2 Art 95.8 01/03/2021 04:20 tHb Art 8.0 LOW 01/03/2021 07:48 FHHb 4.1 NA 01/03/2021 04:20 ctO2 10.6 NA 01/03/2021 04:20 FIO2 Art 40 01/03/2021 04:20 Delivery Device Type Art Ventilator NA 01/03/2021 04:20 Temperature, F Art 98.6 NA 01/03/2021 04:20 Art Blood Gas (ABG) Site Right Radial NA 01/03/2021 04:20 Acceptable Grey's Test Art Acceptable NA 01/03/2021 04:20 Ventilator Mode Art AC NA 01/03/2021 04:20 Tidal Volume Set Art 440.0 NA 01/03/2021 04:20 Set Rate Art 14.0 NA 01/03/2021 04:20 CPAP/PEEP Art 8.0 NA 01/03/2021 04:20 ABG Num of Draw Attempts 1 NA 01/03/2021 04:20 PaO2/FiO2 calculated 191 NA 01/03/2021 04:20 JAN 03 04:37 145 112 H 34 / H 138 3.7 30 0.80 \ JAN 03 04:37 \ L 8.1 / H 9.6 L 147 / L 25.5 \ Blood Gases (Current Encounter/Past 24 Hours) pH Art 7.46 HI 01/03/2021 07:48 pCO2 Art 41.1 01/03/2021 04:20 pO2 Art 76.4 LOW 01/03/2021 07:48 HCO3 Art 29.0 HI 01/03/2021 07:48 BE Art 4.7 HI 01/03/2021 07:48 sO2 Art 95.8 01/03/2021 04:20 tHb Art 8.0 LOW 01/03/2021 07:48 FHHb 4.1 NA 01/03/2021 04:20 ctO2 10.6 NA 01/03/2021 04:20 FIO2 Art 40 NA 01/03/2021 04:20 Delivery Device Type Art Ventilator NA 01/03/2021 04:20 Temperature, F Art 98.6 NA 01/03/2021 04:20 Art Blood Gas (ABG) Site Right Radial NA 01/03/2021 04:20 Acceptable Grey's Test Art Acceptable NA 01/03/2021 04:20 Ventilator Mode Art AC NA 01/03/2021 04:20 Tidal Volume Set Art 440.0 NA 01/03/2021 04:20 Set Rate Art 14.0 NA 01/03/2021 04:20 CPAP/PEEP Art 8.0 NA 01/03/2021 04:20 ABG Num of Draw Attempts 1 NA 01/03/2021 04:20 PaO2/FiO2 calculated 191 NA 01/03/2021 04:20 Radiology Results (Last 48 hours) [id number] -- 12/27/2020 06:39 CR Chest 1 Vw Portable (01/02/2021 04:55) [...] reviewed, interpreted, and dictated by Dr. Christiano Grurola.Transcribed by Mynor Moran(Sherron).I have personally viewed, interpreted and dictated the examination. Ihave read and agree with the above final transcribed report. CR Chest 1 Vw Portable (01/03/2021 05:02) Result: PORTABLE CHEST 01/03/2021 4:00 AM HISTORY: Pleural effusion.COMPARISON: January 02, 2021.FINDINGS: The heart is enlarged. The patient is status post mediansternotomy. Support tubes and lines appear stable. There is persistentpulmonary vascular congestion. There are worsening pulmonary opacitiesconsistent with worsening edema or pneumonia. There is no pneumothorax.The osseous structures are unremarkable. IMPRESSION: Worsening pulmonary opacities consistent with worseningedema or pneumonia.Images reviewed, interpreted, and dictated by Dr. Christiano [...] team, including critical care team, CCRN, RT., Maintenance Machinist , case management and clinical pharmacist. I [...] improving, s/p transfusion on 12/30 Leukocytosis - improving, now worsening Renal Metabolic acidosis due to lactic acid ; improved Electrolyte disturbances Hypernatremia - resolved ID Leukocytosis - improving COVID-19 negative Pneumonia panel + Klebsiella aerogenes Endocrine Glycemic control Neuro Sedated with Precedex and fentanyl goal rass-1 , 0 acute encephalopathy multiple infarcts : hypotension and s/p TAVR physical deconditioning right upper ext flaccid and right lower exts weakness ; ( improved RLE) MRI brain: multiple bilateral acute infarcts Plan: Vent bundle Daily SAT/SBT for up to 2hrs TID Bedside bronch - follow BAL, cultures Duonebs prn Lasix 20mg IV q8 - reevaluate in AM Albumin 12.5g q8 Sedation: Precedex, Fentanyl for goal RASS -1 to 0 Neuro following, appreciate Dr. Thorne's input Hemodynamics: Stable, off pressors CTS following -CT management Cardiology following -Stop Amio secondary to prolonged QTc, discussed with CTS and cardiology Anbx: Zosyn for total of 8 days, Klebsiella PNA KCl 20mEq PO x1 Recheck potassium level now and at 2300 TF per dietary, Corpak in place Prophylaxis: Protonix, SCDs -Anticoagulation per CTS -Rediscussed with cardiothoracic surgery for initiation of proph anticoagulation hgb is border line.. Bowel regimen: Docusate, Senna, Miralax CXR and labs in AM Full code Prognosis is guarded to poor Disposition intensive care unit Electronically signed by Elmer [facility] Conversion Preassembler And Inspector Cerner at 11/10/2022 9:29 AM CDT documented in this encounter Plan of Treatment Not on file documented as of this encounter Visit Diagnoses Not on filedocumented in this encounter
--- OUTSIDE RECORDS SUMMARY | 2025-01-16 11:44 | XMS_ITS | Encounter Summary ---
Author Organization [facility] Address [address] [place] [address] Care Team Providers Care Gravity Prospector Name Role Phone Unavailable Primary Care Provider Unavailabl e Encounter Details Date Type Department Care Team (Late st Contact Info) Description 01/16/2021 Transcribed Document [facility] [place] [address] [place] [address] ProviderMacrina MD [address] [place] [address] Social History Tobacco Use Types Packs/Day Years Used Date Smoking Tobacco: Never Assessed Sex and Gender Information Value Date Recorded Sex Assigned at Not on file Legal Sex Male 1:13 PM CDT Gender Identity Not on file Sexual Orientation Not on file documented as of this encounter Miscellaneous Notes * Cerner Conversion Note - Macrina ProviderMD - 01/16/2021 7:00 AM CDT MBSS/VFSS Evaluation Entered On: 01/16/2021 10:27 EDT Performed On: 01/16/2021 10:20 EDT by JUAN MANUEL BRUMFIELD, HSE SPECIALIST General Information Visit Type, HSE SPECIALIST : Re-Evaluation Patient Orders : Speech Language Pathology Modified Barium Swallow Study -111 Start: 01/16/21 7:00:00 EDT, Routine, For Other (see special instructions), Dysphagia - ANANDA MILLER PA Speech Language Pathology Additional Tx - Start: 01/07/21 10:25:00 EDT, For Dysphagia Cognitive Other (use Special instructions), dysarthria, Continuous Order -111 Admission Date : Admission Date/Time: 12/27/20 06:39:00 Medical Chart Reviewed, HSE SPECIALIST : Yes Personal Devices : Personal Devices [...] aortic (valve) stenosis 12/28/2020 12:00 Polyneuropathy, unspecified JUAN MANUEL BRUMFIELD SLP - 01/16/2021 10:20 EDT Therapy Diagnosis, HSE SPECIALIST : Pt presents with functional oral skills and severe pharyngeal dysphagia, gross silent aspiration of thins, inevitable aspiration of pudding. Unsafe for PO intake 1. NPO with Corpak, non oral meds 2. Ok for ice in moderation after oral care 3. Feel that PEG placement is reasonable at this time given MD and pt wishes 4. Dysphagia tx 5. 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 JUAN MANUEL BRUMFIELD SLP - 01/16/2021 10:34 EDT Previous Cognitive Evaluations : currently being followed by ST this admit following bilateral CVAs Diet/Intake Prior to Current Admission : regular Diet/Intake During Current Admission : NPO with corpak Intubation Comment, HSE SPECIALIST : 12/27-12/31, reintubated 01/01-01/05 Vital Signs RTF [...] 143 lb Respiratory Assessment Comment : nasal cannula JUAN MANUEL BRUMFIELD, BENJY - 01/16/2021 10:20 EDT General Status Patient Received Status, HSE SPECIALIST : Up in chair Patient Left Status, HSE SPECIALIST : Up in chair JUAN MANUEL BRUMFIELD SLP - 01/16/2021 10:20 EDT Pain Assessment Pain Scaled Used : FACES Pain Score Pre-Intervention : 2 JUAN MANUEL BRUMFIELD SLP - 01/16/2021 10:20 EDT Image 1 - Images currently included in the form version of this document have not been included in the text rendition version of the form. MBSS/VFSS Exam Swallow Outcome MB/VFSS : Impaired Swallow Positions MB/VFSS : Upright 90 degrees Head Control MB/VFSS : Neutral head position Trunk Control MB/VFSS : Upright centered position Presentation Style MB/VFSS : Clinician Consistencies Trialed MB/VFSS : Thin by straw Pudding JUAN MANUEL BRUMFIELD, BENJY - 01/16/2021 10:20 EDT Swallow Impressions Contributing Factors MB/VFSS : Endurance, decreased, Weak protective reactions, Compromised respiratory status Aspiration Reaction MB/VFSS : Silent Swallow Impairment Severity : Severe MBSS/VFSS Overall Impressions : Pt seated at 90 degrees in Haustead PAULINO chair. He requires repositioning and cueing to maintain good airway visualization. Pt's uvula is noted to contact tongue back though no nasal regurg noted during exam. Pt's oral skills are slow but functional. Pharyngeal impairment is severe and characterized by mistiming of the swallow, reduced laryngeal elevation, reduced hyolaryngeal excursion, reduced pharyngeal contraction, and impaired laryngeal and pharyngeal sensation. There is incomplete epiglottic deflection throughout study. On initial PO presentation of pudding, swallow reflex is grossly incomplete. There is absent epiglottic inversion and little to no tongue base/posterior pharyngeal wall approximation. There is little to no material that passes through UES with numerous cued swallows and with attempts at chin tuck head posture. There is maribeth silent aspiration of thins which occurs during the swallow. Numerous cued coughs are ineffective at clearing aspirated or penetrated material. While thin contrast is somewhat effective at reducing significant vallecular residue of pudding, it also thins viscosity resulting in deep, silent penetration to the cords. Cued coughs are again unsuccessful at clearing vestibule. Given severity of dysphagia, no further trials were attempted. At this time, pt remains unsafe for PO intake. Given that pt is agreeable to PEG placement feel it is reasonable at this time. ST will continue to tx dysphagia, cognition, and dysarthria, ice chips are OK in moderation and after oral care, repeat study 1 week if still hospitalized. Education provided to pt immediately following study. JUAN MANUEL BRUMFIELD SLP - 01/16/2021 10:34 EDT Impressions, MBSS/VFSS : Pharyngeal dysphagia, Non-functional for oral intake JUAN MANUEL BRUMFIELD SLP - 01/16/2021 10:20 EDT 8 Point Penetration/Aspiration Grid Thin by Straw : 8 Pudding : 5 JUAN MANUEL BRUMFIELD SLP - 01/16/2021 10:20 EDT Swallow Recommendations Recommended Diet Type, SwRec : Non-oral feeding, NPO, OK for ice Swallow Position, SwRec : Upright 90 degrees Recommended Med Present, SwRec : Non-oral Recommended Exam, Sw Rec : MBSS/VFSS Repeat Swallow Exam Timeframe : 1week JUAN MANUEL BRUMFIELD SLP - 01/16/2021 10:20 EDT Repeat Instrumental Exam Grid Prior to Diet Advancement : Yes Prior to Liquid Advancement : Yes JUAN MANUEL BRUMFIELD SLP - 01/16/2021 10:20 EDT Therapy Indication Assessment HSE SPECIALIST Indicated : Yes HSE SPECIALIST Problem List : Impaired, Memory, Impaired, Motor Speech, Impaired, Swallowing JUAN MANUEL BRUMFIELD SLP - 01/16/2021 10:20 EDT Swallow Plan/Goals Treatment Frequency, HSE SPECIALIST : 5 times per wk Treatment Plan Est w/Pt/Caregvr, Swallow : Yes JUAN MANUEL BRUMFIELD SLP - 01/16/2021 10:20 EDT Swallow LTG Grid HSE SPECIALIST Mirror Inspector Goal #1 HSE SPECIALIST Jail Goal #2 Swallow LTG : Establish safe oral diet without aspiration Improve swallowing function for oral intake Status : Progressing, continue Progressing, continue JUAN MANUEL BRUMFIELD SLP - 01/16/2021 10:20 EDT JUAN MANUEL BRUMFIELD, HSE SPECIALIST - 01/16/2021 10:20 EDT Swallow Goals Grid Goal #1 Goal [...] EDT 01/23/2021 EDT Status : Goal met Revised Goal met Revised Date Met : 01/10/2021 EDT 01/10/2021 EDT JUAN MANUEL BRUMFIELD, HSE SPECIALIST - 01/16/2021 10:20 EDT JUAN MANUEL BRUMFIELD, HSE SPECIALIST - 01/16/2021 10:20 EDT JUAN MANUEL BRUMFIELD, HSE SPECIALIST - 01/16/2021 10:20 EDT JUAN MANUEL BRUMFIELD, HSE SPECIALIST - 01/16/2021 10:20 EDT Goal #5 Goal #6 Goal #7 Goal #8 Swallow STG : Improve labial closure Improve swallow timing Improve hyolaryngeal excursion Other: instrumental Related To : Return to oral intake Aspiration prevention, Penetration prevention Aspiration prevention, Penetration prevention Measurement by repeat instrumental exam, Return to oral intake Date to Meet : 01/10/2021 EDT 01/23/2021 EDT 01/23/2021 EDT 01/23/2021 EDT Status : Goal met Revised Revised Revised Date Met : 01/10/2021 EDT JUAN MANUEL BRUMFIELD SLP - 01/16/2021 10:20 EDT JUAN MANUEL BRUMFIELD, HSE SPECIALIST - 01/16/2021 10:20 EDT JUAN MANUEL BRUMFIELD, HSE SPECIALIST - 01/16/2021 10:20 EDT JUAN MANUEL BRUMFIELD, HSE SPECIALIST - 01/16/2021 10:20 EDT Education Barriers To Learning : Cognitive deficit, Emotional state Individuals Taught : Patient JUAN MANUEL BRUMFIELD SLP - 01/16/2021 10:20 EDT HSE SPECIALIST Education Assessment Grid 1 Aspiration : Needs further teaching Dysphagia : Needs further teaching Dysphagia, Effects of Impairment : Needs further teaching MBSS/VFSS/FEES Results : Needs further teaching Non-Oral Nutrition : Needs further teaching, Corpak v. PEG JUAN MANUEL BRUMFIELD SLP - 01/16/2021 10:20 EDT HSE SPECIALIST Education Assessment Grid 2 Signs of Distress with Oral Intake : Needs further teaching, and silent aspiration JUAN MANUEL BRUMFIELD SLP - 01/16/2021 10:[address] [facility] Charg[facility] Modified Barium Swallow : 1 JUAN MANUEL BRUMFIELD SLP - 01/16/2021 10:20 EDT Anticipated Discharge Needs, HSE SPECIALIST Anticipated Discharge to : Rehab, high intensity Recommend Continued Therapy at Discharge : Yes (Comment: s4 [JUAN MANUEL BRUMFIELD SLP - 01/16/2021 10:20 EDT] ) JUAN MANUEL BRUMFIELD SLP - 01/16/2021 10:20 EDT documented in this encounter Plan of Treatment Not on file documented as of this encounter Visit Diagnoses Not on filedocumented in this encounter
--- OUTSIDE RECORDS SUMMARY | 2025-01-16 11:44 | XMS_ITS | Encounter Summary ---
Author Organization [facility] Address [address] [place] [address] Care Team Providers Care Tibco Developer Name Role Phone Unavailable Primary Care Provider Unavailabl e Encounter Details Date Type Department Care Team (Late st Contact Info) Description 12/31/2020 Transcribed Document [facility] [place] [address] [place] [address] ProviderMacrina MD [address], [place] [id number] Social History Tobacco Use Types Packs/Day Years Used Date Smoking Tobacco: Never Assessed Sex and Gender Information Value Date Recorded Sex Assigned at Not on file Legal Sex Male 1:13 PM CDT Gender Identity Not on file Sexual Orientation Not on file documented as of this encounter Miscellaneous Notes * Cerner Conversion Note - Macrina ProviderMD - 12/31/2020 2:55 PM CDT On Going Discharge Planning Entered On: 12/31/2020 14:58 EDT Performed On: 12/31/2020 14:55 EDT by SOPHY RM Rn-Vertical BorerCloth Sander Progress Note Discharge Arrangements : Patient Post-Acute [...] Meeting Medical Necessity : Yes SOPHY RM Rn-Vertical Borer - 12/31/2020 14:55 EDT Narrative Progress Note Narrative Progress Note : HD#4; ELOS 3; LRR; POD#4 - Electiv TAVR; L Ventrical Tear; intubated fi02 50; Cardene gtt; Corpak to be placed and TF initiated; SBT today; following commands; Head MRI ordered; possible extubation post MRI; no movement noted on R side; will need PT/OT evaluations when extubated; DCP pending progress - likely rehab. Historical Progress Note : DCP TBD - pending progress; OP Cardiac Rehab referral placed thru [facility]. SOPHY RM, Rn-Vertical Borer - 12/28/20 12:42:03 SOPHY RM Rn-Vertical Borer - 12/31/2020 14:55 EDT documented in this encounter Plan of Treatment Not on file documented as of this encounter Visit Diagnoses Not on filedocumented in this encounter
--- OUTSIDE RECORDS SUMMARY | 2025-01-16 11:44 | XMS_ITS | Encounter Summary ---
Author Organization [facility] Address [address] [place] [address] Care Team Providers Care Head Of Digital Advertising & Integration Name Role Phone Unavailable Primary Care Provider Unavailabl e Encounter Details Date Type Department Care Team (Late st Contact Info) Description 01/16/2021 Transcribed Document [facility] [place] [address] [place] [address] ProviderMacrina MD [address] [place] [address] Social History Tobacco Use Types Packs/Day Years Used Date Smoking Tobacco: Never Assessed Sex and Gender Information Value Date Recorded Sex Assigned at Not on file Legal Sex Male 1:13 PM CDT Gender Identity Not on file Sexual Orientation Not on file documented as of this encounter Miscellaneous Notes * Cerner Conversion Note - Macrina Cordova MD - 01/16/2021 6:38 AM CDT Patient: JOSE ADORNO Age: 80 years Sex: Male : 1940 Associated Diagnoses: None Author: YUE VELIZ APRN BASIC PCP: Robert Batista MD Primary Siebel Crm Developer: Arthur Gomez MD Subjective Resting in bed. Health [...] Oral, BID , Medications (35) Active Scheduled: (16) #NaCl 0.9% [...] Intake and Output 24 hour intake: Total 685 ml 24 hour output: Total 1,600 ml VS/Measurements Vitals Signs (last 24 hrs) Last Charted Minimum Maximum Temp 97.6 (JAN 16 05:35) 97.6 (JAN 16 05:35) 98 (JAN 15 20:37) Apical HR H 105 (JAN 15 09:18) H 105 (JAN 15 09:18) H 105 (JAN 15 09:18) Mon HR 93 (JAN 16 05:35) 84 (JAN 16 03:12) 96 (JAN 15 18:24) Resp Rate 20 (JAN 15 18:24) 20 (DEC 22 18:24) 20 (DEC 22 18:24) SBP 105 (JAN 16 05:35) 104 (DEC 22 18:24) 126 (JAN 16 03:12) DBP 63 (JAN 16 05:35) L 57 (JAN 16 03:12) 76 (JAN 15 20:37) MAP 77 (JAN 16 05:35) 75 (CESAR 22 18:24) 88 (JAN 15 20:37) SpO2 96 (DEC 22 18:24) 96 (CESAR 22 18:24) 96 (JAN 15 18:24) General: Alert and oriented, No acute distress. [...] Appropriate mood & affect. Results Review JAN 16 04:16 L 132 L 99 H 43 / 95 4.7 29 0.80 \ JAN 16 04:16 \ L 10.7 / H 10.3 H 517 / L 32.9 \ Radiology Results (Last 48 hours) [id number] -- 12/27/2020 06:39 CR Chest 1 Vw Portable (01/15/2021 06:15) Result: PORTABLE CHEST, ONE VIEW HISTORY: Pleural effusion.COMPARISON: One day earlier.FINDINGS: The lungs dykes are unchanged. There is no pneumothorax. The cardiac silhouette is stable. Support tubes and lines are stable. IMPRESSION: No significant change. Images reviewed, interpreted, and dictated by Dr. Alvin Portillo.Transcribed by [place] PA-C, RBeatriceTBeatrice (N), C N M T.I have personally [...] s/p pericardiocentesis and surgical repair of LV [place]. *PEA Arrest; CODE called 10 minutes to ROSC Mediastinal hemorrhage/Cardiac tamponade s/p emergent sternotomy; repair of left ventricular teat 12/27/2020 - Mechanical vent placed during surgery; extubated 01/05/21 *acute blood loss anemia s/p Transfusions: 4 units of PRBCs, cryoprecipitate, platelets, and FFP *Hypertension *Neurologic changes; CVA CT - no acute changes. MRI - Multiple acute infarcts PLAN; 01/16/2021 No change to medications. PEG placement scheduled for tomorrow. Continue supportive care 01/15/2021 Trazodone for sleep. I appreciate the [...] proceed. Further plans to follow post TAVR. Electronically signed by Olinda Payne Conversion Boring Machine Set Up Operator Jig Cerner at 11/10/2022 9:12 AM CDT documented in this encounter Plan of Treatment Not on file documented as of this encounter Visit Diagnoses Not on filedocumented in this encounter
--- OUTSIDE RECORDS SUMMARY | 2025-01-16 11:44 | XMS_ITS | Encounter Summary ---
Author Organization [facility] Address [address] [place] [address] Care Team Providers Care Extender Name Role Phone Unavailable Primary Care Provider Unavailabl e Encounter Details Date Type Department Care Team (Late st Contact Info) Description 01/15/2021 Transcribed Document [facility] [place] [facility] [place] [address] ProviderMacrina MD [address] [place] [address] Social History Tobacco Use Types Packs/Day Years Used Date Smoking Tobacco: Never Assessed Sex and Gender Information Value Date Recorded Sex Assigned at Not on file Legal Sex Male 1:13 PM CDT Gender Identity Not on file Sexual Orientation Not on file documented as of this encounter Miscellaneous Notes * Cerner Conversion Note - Macrina Cordova MD - 01/15/2021 1:52 PM CDT Patient: JOSE ADORNO Age: 80 [...] 1012. 01/02/21: POD#6 Intubated and sedated on [id number]/hr and Precedex .6mcg/kg/min. He is also on [...] child. 01/15/2021 POD #19 no new complaints Review of Systems Constitutional: Weakness. Health Status Allergies: Allergic Reactions (Selected) No Known Allergies Physical Examination VS/Measurements Vital Measurements 01/15/2021 9:18 EDT Heart Rate, Apical 105 bpm HI 01/15/2021 8:11 EDT Oxygen Therapy Mode Nasal cannula 01/15/2021 5:40 EDT Systolic Blood Pressure 119 mmHg Diastolic Blood Pressure 79 mmHg Temperature, Fahrenheit 98 Deg F 01/14/2021 19:50 EDT Oxygen Saturation 95 % Oxygen Therapy Mode Nasal cannula General: No acute distress. Respiratory: Respirations are non-labored. Breath sounds: Rhonchi present. Cardiovascular: Normal rate, 97 beats per minute, Regular rhythm, S1, S2, No edema. Integumentary: Warm, Dry. Neurologic: Alert, Oriented. Psychiatric: Cooperative, Appropriate mood & affect. Review / Management Results review: JAN 15 04:10 L 133 L 100 [...] 2L/NC TF 50ml/hr Continue P.T. Transfer to [facility] Pt will need rehab when clinically ready 01/11/21 POD#15 O2 91% 2L/NC TF 50ml/hr Continue P.T. Awaiting transfer to [facility] 01/12/2021 POD #16 Continues tube feedings, tolerating Steady progress 01/13/2021 POD #17 ALINA Spence Will need rehab placement 01/14/2021 POD #18 Patient still not cleared for PO [facility] has accepted the patient, but he needs a PEG. Will consult general surgery for PEG placement prior to transfer to [facility] 01/15/2021 POD #19 Planning to repeat swallow evaluation. Depending on results, may require PEG prior to transfer to [facility]. Diagnosis Anxiety - Pre-Op Diagnosis, Medical. Cardiac [...]
--- OUTSIDE RECORDS SUMMARY | 2025-01-16 11:44 | XMS_ITS | Encounter Summary ---
Author Organization [facility] Address [address] [place] [address] Care Team Providers Care Package Winder Name Role Phone Unavailable Primary Care Provider Unavailabl e Encounter Details Date Type Department Care Team (Late st Contact Info) Description 01/10/2021 Transcribed Document [facility] [place] [address] [place] [address] ProviderMacrina MD [address] [place], [place] [id number] Social History Tobacco Use Types Packs/Day Years Used Date Smoking Tobacco: Never Assessed Sex and Gender Information Value Date Recorded Sex Assigned at Not on file Legal Sex Male 1:13 PM CDT Gender Identity Not on file Sexual Orientation Not on file documented as of this encounter Miscellaneous Notes * Cerner Conversion Note - Historical ProviderMD - 01/10/2021 5:00 PM CDT Chart Check - Review Order Profile Entered On: 01/10/2021 17:51 EDT Performed On: 01/10/2021 17:00 EDT by Belem Chiu, RN Chart Check Powerplans Initiated/Discontinued as Appropriate : Not applicable All Active Orders Reviewed : Yes Belem Chiu RN - 01/10/2021 17:51 EDT documented in this encounter Plan of Treatment Not on file documented as of this encounter Visit Diagnoses Not on filedocumented in this encounter
--- OUTSIDE RECORDS SUMMARY | 2025-01-16 11:44 | XMS_ITS | Encounter Summary ---
Author Organization [facility] [employer] [facility] Address [address] [place] [address] Care Team Providers Care Floor Installation Mechanic Name Role Phone Unavailable Primary Care Provider Unavailabl e Encounter Details Date Type Department Care Team (Late st Contact Info) Description 01/09/2021 Transcribed Document [facility] [place] Family Medicine [address] [place] [address] ProviderMacrina MD [address] [place] [address] Social History Tobacco Use Types Packs/Day Years Used Date Smoking Tobacco: Never Assessed Sex and Gender Information Value Date Recorded Sex Assigned at Not on file Legal Sex Male 1:13 PM CDT Gender Identity Not on file Sexual Orientation Not on file documented as of this encounter Miscellaneous Notes * Cerner Conversion Note - Macrina ProviderMD - 01/09/2021 8:33 PM CDT Spiritual Care Assessment Entered On: 01/09/2021 20:34 EDT Performed On: 01/09/2021 20:33 EDT by LAVERN VALDIVIA Chaplain General Information Initial Visit : No Referred by : follow-up Ministry Provided to : Patient, Family/Significant other Confucianist Preference : Evangelical LAVERN VALDIVIA Chaplain - 01/09/2021 20:33 EDT Spiritual Assessment Spiritual Assessment Comment/Summary Points : follow up visit with patient and his , Evelia Box. Prayer provided as requested. Spirital Assessment Comment/Summary Report : SPIRITUAL ASSESSMENT COMMENT/SUMMARY Spiritual Assessment Comment/Summary 01/09/21 10:15:00 Patient up in chair, communicates with gestures. Provided supportive presence, reassurance and prayer. Signed By: BRISSA SULLIVAN Spiritual Assessment Comment/Summary 12/28/20 13:16:00 Patient resting [...] By: BRISSA SULLIVAN DAVID L, Chaplain - 01/09/2021 20:33 EDT documented in this encounter Plan of Treatment Not on file documented as of this encounter Visit Diagnoses Not on filedocumented in this encounter
--- OUTSIDE RECORDS SUMMARY | 2025-01-16 11:44 | XMS_ITS | Encounter Summary ---
Author Organization [facility] Address [address] [place] [address] Care Team Providers Care Procurement Technician Name Role Phone Unavailable Primary Care Provider Unavailabl e Encounter Details Date Type Department Care Team (Late st Contact Info) Description 12/31/2020 Transcribed Document [facility] [place] Medicine [facility] [place] [address] ProviderMacrina MD [address], [place] [id number] Social History Tobacco Use Types Packs/Day Years Used Date Smoking Tobacco: Never Assessed Sex and Gender Information Value Date Recorded Sex Assigned at Not on file Legal Sex Male 1:13 PM CDT Gender Identity Not on file Sexual Orientation Not on file documented as of this encounter Miscellaneous Notes * Cerner Conversion Note - Macrina Cordova MD - 12/31/2020 7:54 AM CDT Patient: JOSE ADORNO Age: 80 [...] left side but not with the right. Health Status Allergies: Allergic Reactions (Selected) No Known Allergies Physical Examination Intake and Output 24 hour intake: Total 2711 ml 24 hour output: Urinary catheter 2175 ml, Total 2395 ml MT 170ml and Rt CT 50ml / 24hrs VS/Measurements Vital Measurements 12/31/2020 6:00 EDT Systolic Blood Pressure 151 mmHg HI Diastolic Blood Pressure 72 mmHg Mean Arterial Pressure (MAP)-BMDI 104 Temperature, Celsius 37.4 Deg C Clinical Temperature, F 99.3 Deg F Heart Rate Monitored 81 bpm Oxygen Saturation 99 % Oxygen Therapy Mode Mechanical ventilation FiO2 50 % General: Intubated . HENT: Normocephalic. Neck: Supple. Respiratory: Lungs are clear to auscultation. Cardiovascular: Normal rate, 81 beats per minute, Regular rhythm, S1, S2, No edema. Gastrointestinal: Soft. Integumentary: Warm, Dry, [place]. Review / Management Results review: DEC 31 01:52 142 107 H 29 [...] as tolerated Cor Dustin placement Start TF Diagnosis Anxiety - Pre-Op Diagnosis, Medical. Cardiac [...]
--- OUTSIDE RECORDS SUMMARY | 2025-01-16 11:44 | XMS_ITS | Encounter Summary ---
Author Organization [facility] [employer] [facility] Address [address] [place] [address] Care Team Providers Care Head Gauge Unit Operator Name Role Phone Unavailable Primary Care Provider Unavailabl e Encounter Details Date Type Department Care Team (Late st Contact Info) Description 01/09/2021 Transcribed Document [facility] [place] Family Medicine [address] [place] [address] ProviderMacrina MD [address] [place], [place] [id number] Social History Tobacco Use Types Packs/Day Years Used Date Smoking Tobacco: Never Assessed Sex and Gender Information Value Date Recorded Sex Assigned at Not on file Legal Sex Male 1:13 PM CDT Gender Identity Not on file Sexual Orientation Not on file documented as of this encounter Miscellaneous Notes * Cerner Conversion Note - Macrina ProviderMD - 01/09/2021 7:45 AM CDT On Going Discharge Planning Entered On: 01/09/2021 7:48 EDT Performed On: 01/09/2021 7:45 EDT by SOPHY RM Rn-Parking Meter InstallerCare Navigator Progress Note Discharge Arrangements : Patient Post-Acute [...] : Clinical Condition of Patient SOPHY RM Rn-Parking Meter Installer - 01/09/2021 7:45 EDT Narrative Progress Note Narrative Progress Note : HD#13; ELOS 3; LRR; BOOST 6; POD#13 - ElectiveTAVR/LVentTear/Tamponade - 02=2L; BIPAP prn for WOB/hs; Duonebs/IS/FVD encouraged; Patricio gtt; central line d/c 15/PICC placed; T=100; Maxipime; working with therapy - very weak; Mod-Max A x2 to EOB - not safe to stand; ST - failed/ongoing dysphagia tx; Corpak/TF; DCP rehab - improving. Historical Progress Note : HD#12; ELOS 3; LRR; BOOST 6; POD #12 - Electiv TAVR/LVentTear/Cardiac Tamponade SOPHY RM Rn-Parking Meter Installer - 01/08/21 14:56:21 HD#12; ELOS 3; LRR; BOOST 6; POD #12 - Electiv TAVR/LVentTear/Cardiac Tamponade/Embolic Strokes w/ R side weakness; RA; IS/FVD encouraged; report pt with delerium/lethargy overnight - pulled out IV; PICC ordered today; R arm weakness; Corpak/TF - failed ST evaluation - improving; DCP Rehab; continue to follow SOPHY RM Rn-Parking Meter Installer - 01/08/21 14:58:32 HD#11; ELOS 3; MRR; BOOST 6; POD#11 - Elective TAVR/LVentTear/Cardiac Tamponade; 02=2L; Maxipime/Ancef; IV Bumex; working w/therapy and stood at side of bed; SOPHY RM, Rn-Parking Meter Installer - 01/07/21 14:34:53 HD#11; ELOS 3; MRR; BOOST 6; POD#11 - Elective TAVR/LVentTear/Cardiac Tamponade; 02=2L; Maxipime/Ancef; IV Bumex; working w/therapy and stood at side of bed; ST - ongoing rec for NPO r/t dysphagia - tx; instrumental 3-4 days; Corpak/TF; DCP anticipate rehab; initial referrals placed thru [facility] and list w/post acute star ratings provided to pt for choicing. SOPHY RM Rn-Parking Meter Installer - 01/07/21 14:36:37 HD#8; ELOS 3; LRR; BOOST 6; POD#8 - Elec TAVR/LVentTear/Cardiac Tamponade - intubated fi02 100; awake/calm/following commands; bronchoscopy scheduled today; SBT; T=101.2; MRI - diffuse scattered bilateral infarcts; Dr. Navarro states during MDR that if pt is unable to successfully wean over weekend will need trach/peg consult on Thursday; continue to follow; will need therapy evaluations when extubated. SOPHY RM Rn-Parking Meter Installer - 01/04/21 15:16:12 HD#7; ELOS 3; LRR; BOOST 6; POD#7 - Elective TAVR/LVentTear/CardiacTamponade/Arrest - intubated fi02 40/peep 8; SBT x 2 hr; Fent/Precedex gtt; Corpak/TF; Humza CT in place; Neurology following - MRI diffuse scattered bilateral infarcts; pt w/improvement in movement of R side; PT/OT evaluations when extubated; DCP TBD - likely rehab. SOPHY RM Rn-Parking Meter Installer - 01/03/21 15:03:09 HD#6; ELOS 3; LRR; BOOST 6; POD #6 - Electiv TAVR/L Vent Tear/Cardiac Tamponode/Arrest - reintubated 01/01; fi02 40; Levo/Fent/Precedex gtt; wean sedation - on SBT 2hr TID; T=99.9; Dr. Navarro states during MDR that pt's spouse aware may need trach/peg; DCP TBD pending progress. SOPHY RM Rn-Parking Meter Installer - 01/02/21 14:55:12 HD#5; ELOS 3; LRR; BOOST 6; POD #5 - Elective TAVR/L Ventrial Tear/Cardiac Tamponode; extubated on 12/31 required reintubation today fi02 60/peep 8; Precedex/Fent gtt; Corpak/TF; IV Zosyn; CT draining; T=100; DCP TBD pending progress; will need therapy evals when appropriate. SOPHY RM Rn-Parking Meter Installer - 01/01/21 14:47:57 HD#4; ELOS 3; LRR; POD#4 - Electiv TAVR; L Ventrical Tear; intubated fi02 50; Cardene gtt; Corpak to be placed and TF initiated; SBT today; following commands; Head MRI ordered; possible extubation post MRI; no movement noted on R side; will need PT/OT evaluations when extubated; DCP pending progress - likely rehab. SOPHY RM Rn-Parking Meter Installer - 12/31/20 14:58:43 DCP TBD - pending progress; OP Cardiac Rehab referral placed thru [facility]. SOPHY RM Rn-Parking Meter Installer - 12/28/20 12:42:03 SOPHY RM Rn-Parking Meter Installer - 01/09/2021 7:45 EDT documented in this encounter Plan of Treatment Not on file documented as of this encounter Visit Diagnoses Not on filedocumented in this encounter
--- OUTSIDE RECORDS SUMMARY | 2025-01-16 11:44 | XMS_ITS | Encounter Summary ---
Author Organization [employer] Address [address] [place] [address] Care Team Providers Care Shoe Handler Name Role Phone Unavailable Primary Care Provider Unavailabl e Encounter Details Date Type Department Care Team (Late st Contact Info) Description 01/10/2021 Transcribed Document [facility] Cardiology [address] [place] [address] Danyelle Gomez MD [address] [facility] [address] [place] [id number] Social History Tobacco Use Types Packs/Day Years Used Date Smoking Tobacco: Never Assessed Sex and Gender Information Value Date Recorded Sex Assigned at Not on file Legal Sex Male 1:13 PM CDT Gender Identity Not on file Sexual Orientation Not on file documented as of this encounter Miscellaneous Notes * Cerner Conversion Note - Danyelle Gomez MD - 01/10/2021 8:26 AM EDT Patient: JOSE ADORNO Age: 80 years Sex: Male : 1940 Associated Diagnoses: None Author: DANYELLE GOMEZ MD-CAR Basic Information PCP: Robert Batista MD Primary Paint Line Production Supervisor: Danyelle Gomez MD Subjective Sitting up in chair. Health Status Current medications: Home Medications (6) [...] Oral, BID , Medications (39) Active Scheduled: (16) #NaCl 0.9% *FLUSH* inj 10 mL 10 mL, IV Push, Q12H albuterol-ipratropium inh 3 mL 3 mL, Nebulized Inhalation, RT_Q6H aspirin 81 mg chew tab 81 mg 1 Tab, Oral, Daily atorvastatin 40 mg tab 40 mg 1 Tab, Oral, At Bedtime bumetanide 1 mg/4 mL inj 0.5 mg 2 mL, IV Push, Daily cefEPIME + NaCl 0.9% 50 mL 1,000 mg, IV Piggyback, Q6HInt escitalopram 10 mg tab 10 mg 1 [...] tab 10 mg 1 Tab, Oral, BID melatonin 5 mg tab 5 mg 1 Tab, Oral, At Bedtime metoprolol tartrate 50 mg tab 50 mg 1 Tab, Oral, Q6H Continuous: (1) phenylephrine 20 mg + NaCl 0.9% T ITRATE 250 mL 250 mL, IntraVENous PRN: (22) #NaCl 0.9% *FLUSH* inj 10 mL 10 [...] 12.5 mg 0.5 Tab, Oral, At Bedtime senna 8.8 mg/5 mL liq 15 mL [...] Total 1,630 ml 24 hour output: Total 1,365 ml VS/Measurements Vitals Signs (last 24 hrs) Last Charted Minimum Maximum Apical HR H 102 (JAN 10 05:29) H 102 (JAN 10 05:29) H 108 (JAN 09 16:06) Mon HR 93 (JAN 10 06:00) 93 (JAN 10 00:00) 115 (JAN 09 13:00) Resp Rate H 34 (JAN 10 06:00) 15 (JAN 10 03:00) H 34 (JAN 10 06:00) SBP 135 (JAN 10 06:00) 102 (JAN 10 01:00) H 161 (JAN 10 04:00) DBP 65 (JAN 10 06:00) L 53 (JAN 09 08:00) 77 (JAN 09 22:) MAP 94 (JAN 10 06:00) 72 (JAN 09 17:00) 108 (JAN 10 04:00) SpO2 97 (JAN 10 06:) L 91 (JAN 09 22:) 100 (JAN 09 11:29) General: Alert and oriented, No acute distress. Eye: Pupils are equal, round and reactive to light, Normal conjunctiva. HENT: Normocephalic. Neck: Supple. Respiratory: Breath sounds [...] Appropriate mood & affect. Results Review JAN 10 04:14 140 107 H 35 / H 154 4.3 28 0.80 \ JAN 10 04:14 \ L 9.1 / H 13.5 H 424 / L 28.9 \ Cardiac Markers (Current Encounter/Past 24 Hours) No Cardiac Marker Results Found (Past 24 Hours) Radiology Results (Last 48 hours) [id number] -- 12/27/2020 06:39 CR Chest 1 Vw Portable (01/08/2021 12:03) [...] by Dr. Bebeto Avelar.Transcribed by Alyse Cabrera PA-C.I have personally viewed, interpreted and dictated the examination. Ihave read and agree with the above final transcribed report. CR Chest 1 Vw Portable (01/09/2021 05:39) Result: PORTABLE CHEST 01/09/2021 4:00 AM HISTORY: Precordial chest pain .COMPARISON: 17 hours prior.FINDINGS: The patient is status post median sternotomy. There iscardiomegaly. The right jugular deep line has been removed. A feedingtube and right PICC line remain in place. The small left pleuraleffusion is improved. There is a persistent small right pleuraleffusion. There is no pneumothorax. The osseous structures areunremarkable. IMPRESSION: Persistent small right pleural effusion with improvement ofthe small left pleural effusion.Images reviewed, interpreted, and dictated by [...] s/p pericardiocentesis and surgical repair of LV [place]. PEA Arrest; CODE called 10 minutes to ROSC Mediastinal hemorrhage/Cardiac tamponade s/p emergent sternotomy; repair of left ventricular teat 12/27/2020 - Mechanical vent placed during surgery; extubated 01/05/21 acute blood loss anemia s/p Transfusions: 4 units of PRBCs, cryoprecipitate, platelets, and FFP Hypertension Nonischemic cardiomyopathy Neurologic changes; CVA CT - no acute changes. MRI - Multiple acute infarcts PLAN; 01/10/2021 The patient's blood pressure is better [...]
--- OUTSIDE RECORDS SUMMARY | 2025-01-16 11:44 | XMS_ITS | Encounter Summary ---
Author Organization [facility] Address [address] [place] [address] Care Team Providers Care Requirements Engineer Name Role Phone Unavailable Primary Care Provider Unavailabl e Encounter Details Date Type Department Care Team (Late st Contact Info) Description 01/09/2021 Transcribed Document [facility] [place] Family Medicine [facility] [place] [address] ProviderMacrina MD [address] [place], [place] [id number] Social History Tobacco Use Types Packs/Day Years Used Date Smoking Tobacco: Never Assessed Sex and Gender Information Value Date Recorded Sex Assigned at Not on file Legal Sex Male 1:13 PM CDT Gender Identity Not on file Sexual Orientation Not on file documented as of this encounter Miscellaneous Notes * Cerner Conversion Note - Macrina Cordova MD - 01/09/2021 10:17 AM CDT Patient: JOSE ADORNO Age: 80 [...] 1012. 01/02/21: POD#6 Intubated and sedated on [id number]/hr and Precedex .6mcg/kg/min. He is also on [...] to help with max two people assist. Review of Systems Gastrointestinal: Last bowel movement: Today. Health Status Allergies: Allergic Reactions (Selected) No Known Allergies Physical Examination Intake and Output 24 hour intake: Total 3229 ml 24 hour output: Total 2002 ml VS/Measurements Vital Measurements 01/09/2021 8:11 EDT Heart Rate Monitored 106 bpm HI Oxygen Saturation 97 % Oxygen Therapy Mode Nasal cannula Oxygen Flow Rate 2 Liter/Min 01/09/2021 6:45 EDT Systolic Blood Pressure 129 mmHg Diastolic Blood Pressure 64 mmHg Mean Arterial Pressure (MAP)-BMDI 91 Temperature, Celsius 37.5 Deg C Clinical Temperature, F 99.5 Deg F General: The pt is alert and following simple commands, he did not verbalize anything . HENT: Normocephalic. Neck: Supple. Respiratory: Respirations are non-labored. Breath sounds: Diminished. Cardiovascular: 106 beats per minute, Regular rhythm, S1, S2, Tachycardia, No edema. Integumentary: Warm, Dry. Neurologic: Alert. Psychiatric: Cooperative. Review / Management Results review: JAN 09 05:14 139 106 H 38 / H 137 4.0 30 0.90 \ JAN 09 05:14 \ L 8.9 / H 14.4 H 439 / L 28.0 \ Blood Gases (Current Encounter/Past 24 Hours) [...] P.T. today is in the chair TF Diagnosis Anxiety - Pre-Op Diagnosis, Medical. [...]
--- OUTSIDE RECORDS SUMMARY | 2025-01-16 11:44 | XMS_ITS | Encounter Summary ---
Author Organization [employer] [facility] Address [address] [place] [address] Care Team Providers Care Supervisor Printing Shop Name Role Phone Unavailable Primary Care Provider Unavailabl e Encounter Details Date Type Department Care Team (Late st Contact Info) Description 01/10/2021 Transcribed Document [facility] [place] Family Medicine [address] [place] [address] ProviderMacrina MD [address] [place] [address] Social History Tobacco Use Types Packs/Day Years Used Date Smoking Tobacco: Never Assessed Sex and Gender Information Value Date Recorded Sex Assigned at Not on file Legal Sex Male 1:13 PM CDT Gender Identity Not on file Sexual Orientation Not on file documented as of this encounter Miscellaneous Notes * Cerner Conversion Note - Macrina Cordova MD - 01/10/2021 9:37 AM CDT Patient: JOSE ADORNO Age: 80 years Sex: Male : 1940 Associated Diagnoses: None Author: ANANDA QUILES MD-ZURDO Subjective Pt is in better spirits today but does not feel his weakness is better; complains of mood swings Objective VS/Measurements Vital Signs/Vital Measures 01/10/2021 9:00 EDT Systolic Blood Pressure 164 mmHg HI Diastolic Blood Pressure 82 mmHg Clinical Temperature, F 98.6 Deg F Heart Rate Monitored 98 bpm General: Pt is awake and alert, appropriate in conversation though speech is difficult to understand at times due to dysarthria. He follows all commands well. Eye: Pupils are equal, round and reactive to light, Extraocular movements are intact, left gaze preference, improving; does attend to right side better. Respiratory: Respirations are non-labored. Cardiovascular: Normal rate, Regular rhythm. Neurologic: R facial droop with right neglect noted, CN otherwise intact. Strength is improving on right, 3-4/5 in RUE, 4/5 in RLE. 5/5 throughout left side. Sensation intact per patient. Psychiatric: Cooperative. Results Review Labs reviewed Impression and Plan 80yo M with h/o severe aortic stenosis, s/p TAVR this admission on 12/27; post-op course complicated by hemorrhagic pericardial effusion causing tamponade and cardiac arrest, resp failure, embolic strokes on MRI. He has improved significantly, now extubated and doing well with therapy. He continues with right side weakness, dysarthria and neglect; has Corpak, speech therapy is following. He is on aspirin and statin; no further anticoagulation given anemia and hemorrhagic pericardial effusion. He will need ongoing therapy, inpatient rehab at discharge; he has good potential for ongoing recovery with aggressive therapy. I will follow up again on Thursday, contact on-call neuro over the next three days for any issues. documented in this encounter Plan of Treatment Not on file documented as of this encounter Visit Diagnoses Not on filedocumented in this encounter
--- OUTSIDE RECORDS SUMMARY | 2025-01-16 11:44 | XMS_ITS | Encounter Summary ---
Author Organization [employer] Address [address] [place] [address] Care Team Providers Care Rough And Truing Machine Operator Name Role Phone Unavailable Primary Care Provider Unavailabl e Encounter Details Date Type Department Care Team (Late st Contact Info) Description 01/09/2021 Transcribed Document [facility] Cardiology [address] [place] [address] Danyelle Gomez MD [address] [facility] [address] [place] [id number] Social History Tobacco Use Types Packs/Day Years Used Date Smoking Tobacco: Never Assessed Sex and Gender Information Value Date Recorded Sex Assigned at Not on file Legal Sex Male 1:13 PM CDT Gender Identity Not on file Sexual Orientation Not on file documented as of this encounter Miscellaneous Notes * Cerner Conversion Note - Danyelle Gomez MD - 01/09/2021 8:05 AM EDT Patient: JOSE ADORNO Age: 80 years Sex: Male : 1940 Associated Diagnoses: None Author: DANYELLE GOMEZ MD-CAR Basic Information PCP: Robert Batista MD Primary Air Quality Consultant: Danyelle Gomez MD Subjective Resting in bed, NAD. Health Status Current medications: [...] = 1 Tab, Oral, BID , Medications (42) Active Scheduled: (19) #NaCl 0.9% *FLUSH* inj [...] Last Charted Minimum Maximum Apical HR H 105 (JAN 09 05:07) H 105 (JAN 09 05:07) H 115 (JAN 08 20:17) Mon HR 106 (JAN 09 06:15) 93 (JAN 09 03:49) 119 (JAN 08 19:00) Resp Rate H 23 (JAN 09 06:15) 16 (JAN 09 03:49) H 44 (JAN 08 23:30) SBP 99 (JAN 09:) L 68 (JAN 08 23:06) H 166 (JAN 08 10:00) DBP 63 (JAN 09:) L 40 (JAN 08 23:36) 80 (JAN 09 02:00) MAP 76 (JAN 09 06:) 49 (JAN 08 23:36) 113 (JAN 08 10:00) SpO2 98 (JAN 09:) L 92 (JAN 08 18:00) 100 (JAN 09 00:20) General: Alert and oriented, No acute distress. Eye: Pupils are equal, round and reactive to light, Normal conjunctiva. HENT: Normocephalic. Neck: Supple. Respiratory: Symmetrical chest wall expansion. Breath sounds: Bilateral, Rhonchi present. Support: Oxygen ( 4 L/min ), Oxygen delivery method ( Nasal cannula ). Cardiovascular: Normal rate, Regular rhythm, Good pulses equal in all extremities. Gastrointestinal: Soft, Non-tender, Non-distended, Normal bowel sounds. Genitourinary: indwelling rocha catheter. Musculoskeletal: No deformity. Integumentary: Warm, Dry. Neurologic: Alert, Oriented. Psychiatric: Cooperative, Appropriate mood & affect. Results Review JAN 09 05:14 139 106 H 38 / H 137 4.0 30 0.90 \ JAN 09 05:14 \ L 8.9 / H 14.4 H 439 / L 28.0 \ Cardiac Markers (Current Encounter/Past 24 Hours) No Cardiac Marker Results Found (Past 24 Hours) Radiology Results (Last 48 hours) [id number] -- 12/27/2020 06:39 CR Chest 1 Vw Portable (01/08/2021 04:13) [...] by Dr. Brayan Pratt.Transcribed by Enrique Stinson PA-C.Nessa have personally viewed, interpreted and dictated [...] s/p pericardiocentesis and surgical repair of LV [place]. PEA Arrest; CODE called 10 minutes to ROSC Mediastinal hemorrhage/Cardiac tamponade s/p emergent sternotomy; repair of left ventricular teat 12/27/2020 - Mechanical vent placed during surgery; extubated 01/05/21 acute blood loss anemia s/p Transfusions: 4 units of PRBCs, cryoprecipitate, platelets, and FFP Hypertension Nonischemic cardiomyopathy Neurologic changes; CVA CT - no acute changes. MRI - Multiple acute infarcts PLAN; 01/09/2021 The patient had an episode of [...]
--- OUTSIDE RECORDS SUMMARY | 2025-01-16 11:44 | XMS_ITS | Encounter Summary ---
Author Organization [facility] Address [address] [place] [address] Care Team Providers Care Ticket Broker Name Role Phone Unavailable Primary Care Provider Unavailabl e Encounter Details Date Type Department Care Team (Late st Contact Info) Description 01/15/2021 Transcribed Document [facility] Family Medicine [facility] [place] [address] ProviderMacrina MD [address] [place] [address] Social History Tobacco Use Types Packs/Day Years Used Date Smoking Tobacco: Never Assessed Sex and Gender Information Value Date Recorded Sex Assigned at Not on file Legal Sex Male 1:13 PM CDT Gender Identity Not on file Sexual Orientation Not on file documented as of this encounter Miscellaneous Notes * Cerner Conversion Note - Macrina Cordova MD - 01/15/2021 3:59 PM CDT Patient: JOSE ADORNO Age: 80 Years Sex: Male : 1940 Chief Complaint Dysphagia Reason for Consultation PEG request History of Present Illness 80-year-old man who underwent TAVR in November 2020. Unfortunately this was complicated by what sounds like a left ventricular perforation which required sternotomy and repair. During this time he was critically ill, on the ventilator, requiring multiple transfusions and at one point underwent cardiopulmonary resuscitation. He is now extubated and on the hospital tafoya but has some residual dysphagia. Speech pathology has been working with him. Not cleared for oral intake yet. Currently dependent on tube feeds via a postpyloric feeding tube. Arrangements are being made for transfer to a rehabilitation unit and he requires long-term feeding access. Review of Systems Constitutional: no fever, chills, night sweats, or weight change Eyes: no icterus or acute vision change Ear, nose, mouth, and throat: no hearing loss, mucosal bleeding or voice change Cardiovascular: Chest discomfort Respiratory: no shortness of air, cough, or wheeze Gastrointestinal: no nausea, emesis, diarrhea, or constipation Genitourinary: no dysuria or gross hematuria Musculoskeletal: no joint or muscle pain Integumentary: no skin rash, ulcers, or wounds Neurological: Residual dysphagia Psychiatric: no depression or anxiety Endocrine: no hot/cold intolerance or episodes of hypoglycemia Hematologic: no anemia Immunologic: no recent illness or immunodeficiency Vital Signs T: 36.7 ??C TMIN: 36.6 ??C TMAX: 36.9 ??C HR: 105 RR: 16 BP: 119/79 SpO2: 95% Oxygen Settings (Last) Oxygen Therapy Mode: Nasal cannula (01/15/21 08:11:00) Oxygen Flow Rate: 2 Liter/Min (01/14/21 19:50:00) Physical Exam Constitutional: comfortable, well nourished, ambulatory HEENT: atraumatic, anicteric, membranes moist, normal dentition, trachea midline Hem/Lymph/Immune: no lymphadenopathy Cardiovascular: regular rate and rhythm Respiratory: normal work of breathing, lungs clear bilaterally without audible wheeze GI: abdomen soft, nontender, nondistended Musculoskeletal: extremities warm, no cyanosis or edema, 5/5 muscle strength in all four extremities and normal sensation grossly Skin: free of rashes, lesions, ulcers or wounds Psych: A&Ox3, appropriate affect, cooperative Neuro: normal strength and sensation grossly, face symmetric without droop, tongue protrusion midline Assessment/Plan 80-year-old man who 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 This required emergent sternotomy and repair. During this time was critically ill and underwent cardiopulmonary resuscitation. Has some residual dysphagia. Currently being fed via a postpyloric feeding tube. PEG tube was requested to facilitate ongoing rehabilitation. Speech pathology working with patient. Planning for repeat modified barium swallow tomorrow. Will follow results. If no improvement likely could proceed with PEG on January 17. Will discuss further with patient and family pending progress. VTE Prophylaxis - Medical Clopidogrel 75 mg, Oral, Tab, Daily, Routine, Start 01/10/21 13:36:00 EDT, 01/10/21 13:36:00 EDT (FRANDY CARSON PA) Enoxaparin 40 mg, SubCutaneous, Inj, Daily, Start 01/10/21 11:00:00 EDT (FRANDY CARSON PA) Sequential Compression Device Start: 12/27/20 18:03:00 EDT, Bilateral, Continuous Order (EMEKA MADERA MD-CAT) Provider Information Primary Care Physician - EMPERATRIZ, PERICO Alcaraz MD Consulting Physician - RAMESH, KAREN Booker MD-SEB Consulting Physician - KAYCEE-BRUCE MOORE MD-SEB Consulting Physician - NAZARIO, MD LIDIA-SEB Consulting Physician - NIMESH, MD PAT Consulting Physician - ALETA, AUDREY Gong MD Consulting Physician - KB, ANANDA Regan MD-ZURDO - 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, right sided weakness Consulting Physician - CRISTY, MD HARRISON Consulting Physician - NANCY, MD JEISON-SEB Consulting Physician - ROMEO, DANYELLE Bishop MD-CAR Consulting Physician - JACI, MD PEYTON Referring Physician - EMPERATRIZ, PERICO Alcaraz MD Problem List/Past Medical History Ongoing Aortic stenosis, severe Aortic valve stenosis Arthritis of right knee At risk for sleep apnea At risk for violence Back pain, chronic Chronic anxiety Colorectal surgery Disorder of prostate GERD - Gastro-esophageal reflux disease H/O peripheral neuropathy HTN - Hypertension Hyperlipidemia Hypertension Historical Cancer of colon Procedure/Surgical History TAVR (12/27/2020), Valvuloplasty (11/25/2019), Back procedure, Bilateral cataract surgery, choleycystectomy, colon resection, inguinal hernia repair, left hand surgery. SN - Proc - Procedure: Mediastinal Exploration (12/27/20 18:39:23) Medications Inpatient acetaminophen-HYDROcodone 325 mg-5 mg oral tablet, 2 Tab, Oral, Q4H, PRN albumin human 5% intravenous solution, 12.5 Gram= 250 mL, IntraVENous, Daily, PRN aspirin, 81 mg= 1 Tab, Oral, Daily atorvastatin, 40 mg= 1 Tab, Oral, At Bedtime bumetanide, 0.5 mg= 2 mL, IV Push, BID clopidogrel, 75 mg= 1 Tab, Oral, Daily Dextrose, 25 Gram= 50 mL, IV Push, [...] mg= 2 mL, IV Push, Q4H, PRN Home amLODIPine 5 mg oral tablet, 5 mg= 1 Tab, Oral, Daily atorvastatin 40 mg oral tablet, 40 mg= 1 Tab, Oral, Daily clopidogrel 75 mg oral tablet, 75 mg= 1 Tab, Oral, Daily gabapentin 300 mg oral capsule, 600 mg= 2 Cap, Oral, Once a day (at bedtime) gabapentin 300 mg oral capsule, 300 mg= 1 Cap, Oral, Daily lisinopril 10 mg oral tablet, 10 mg= 1 Tab, Oral, BID Allergies No Known Allergies Social History Alcohol Alcohol Use History No. Substance Abuse Drug Use Hx: No. Use in Last 12 Months: No. Tobacco Never (less than 100 in lifetime) Smoking Status. Family History Heart disease: Mother and Father. Lab Results Test Name Test Result Date/Time Sodium Level 133 mmol/L (Low) 01/15/2021 04:10 EDT Potassium Level 5.0 mmol/L 01/15/2021 04:10 EDT Chloride Level 100 mmol/L (Low) 01/15/2021 04:10 EDT Carbon Dioxide Level 28 mmol/L 01/15/2021 04:10 EDT Anion Gap 10 01/15/2021 04:10 EDT Glucose Level 91 mg/dL 01/15/2021 04:10 EDT Blood Urea Nitrogen 35 mg/dL (High) 01/15/2021 04:10 EDT Creatinine Level 0.80 mg/dL 01/15/2021 04:10 EDT eGFR >60 mL/min/1.73m2 01/15/2021 04:10 EDT eGFR NonAfrican >60 mL/min/1.73m2 01/15/2021 04:10 EDT Bun/Creatinine 43.8 (High) 01/15/2021 04:10 EDT Calcium Level 9.3 mg/dL 01/15/2021 04:10 EDT Device Comment 1 Notified Nurse RBV 01/15/2021 12:01 EDT Device Comment 1 Protocols Followed 01/15/2021 05:26 EDT Device Comment 1 Notified Nurse RBV 01/14/2021 23:58 EDT Device Comment 1 Notified Nurse RBV 01/14/2021 18:11 EDT Glucose POC2 141 mg/dL (High) 01/15/2021 12:01 EDT Glucose POC2 91 mg/dL 01/15/2021 05:26 EDT Glucose POC2 95 mg/dL 01/14/2021 23:58 EDT Glucose POC2 120 mg/dL (High) 01/14/2021 18:11 EDT WBC 11.2 K/uL (High) 01/15/2021 04:10 EDT RBC 3.74 Million/uL (Low) 01/15/2021 04:10 EDT Hgb 10.5 g/dL (Low) 01/15/2021 04:10 EDT Hct 33.2 % (Low) 01/15/2021 04:10 EDT MCV 88.8 fL 01/15/2021 04:10 EDT MCH 28.1 pg 01/15/2021 04:10 EDT MCHC 31.6 Gram/dL (Low) 01/15/2021 04:10 EDT Platelet Count 535 K/uL (High) 01/15/2021 04:10 EDT MPV 11.4 fL 01/15/2021 04:10 EDT RDW 13.7 % 01/15/2021 04:10 EDT Slide Review No 01/15/2021 04:10 EDT documented in this encounter Plan of Treatment Not on file documented as of this encounter Visit Diagnoses Not on filedocumented in this encounter
--- OUTSIDE RECORDS SUMMARY | 2025-01-16 11:44 | XMS_ITS | Encounter Summary ---
Author Organization [facility] Address [address] [place] [id number] Care Team Providers Care Electrical Project Engineer Name Role Phone Unavailable Primary Care Provider Unavailabl e Encounter Details Date Type Department Care Team (Late st Contact Info) Description 01/16/2021 Transcribed Document [facility] [place] Family Medicine [facility] [place] [address] ProviderMacrina MD [address] [place] [address] Social History Tobacco Use Types Packs/Day Years Used Date Smoking Tobacco: Never Assessed Sex and Gender Information Value Date Recorded Sex Assigned at Not on file Legal Sex Male 1:13 PM CDT Gender Identity Not on file Sexual Orientation Not on file documented as of this encounter Miscellaneous Notes * Cerner Conversion Note - Macrina Cordova MD - 01/16/2021 1:35 PM CDT Patient: JOSE ADORNO Age: 80 [...] 1012. 01/02/21: POD#6 Intubated and sedated on [id number]/hr and Precedex .6mcg/kg/min. He is also on [...] 01/16/2021: POD #20 failed swallow this morning Review of Systems Constitutional: Weakness. Health Status Allergies: Allergic Reactions (Selected) No Known Allergies Physical Examination VS/Measurements Vital Measurements 01/16/2021 11:01 EDT Heart Rate, Apical 84 bpm 01/16/2021 8:39 EDT Oxygen Saturation 97 % 01/16/2021 5:35 EDT Systolic Blood Pressure 105 mmHg Diastolic Blood Pressure 63 mmHg 01/15/2021 21:38 EDT Oxygen Therapy Mode Nasal cannula Oxygen Flow Rate 2 Liter/Min General: Alert and oriented, No acute distress. Respiratory: Respirations are non-labored. Breath sounds: Rhonchi present. Cardiovascular: Normal rate, 80 beats per minute, Regular rhythm, S1, S2, No edema. Integumentary: Warm, Dry. Neurologic: Alert, Oriented. Psychiatric: Cooperative, Appropriate mood & affect. Review / Management Results review: JAN 16 04:16 L 132 L 99 [...] 2L/NC TF 50ml/hr Continue P.T. Transfer to [facility] Pt will need rehab when clinically ready 01/11/21 POD#15 O2 91% 2L/NC TF 50ml/hr Continue P.T. Awaiting transfer to [facility] 01/12/2021 POD #16 Continues tube feedings, tolerating Steady progress 01/13/2021 POD #17 ALINA Bebe Will need rehab placement 01/14/2021 POD #18 Patient still not cleared for PO [facility] has accepted the patient, but he needs a PEG. Will consult general surgery for PEG placement prior to transfer to [facility] 01/15/2021 POD #19 Planning to repeat swallow evaluation. Depending on results, may require PEG prior to transfer to [facility]. 01/16/2021: POD #20 Continue tube feedings PEG tomorrow per Dr. Rodriguez Spoke with , will contact [facility] tomorrow for bed availability once PEG is placed. Diagnosis Anxiety - Pre-Op Diagnosis, Medical. Cardiac [...]
--- OUTSIDE RECORDS SUMMARY | 2025-01-16 11:44 | XMS_ITS | Encounter Summary ---
Author Organization [facility] Address [address] [place] [address] Care Team Providers Care Building Service Worker Name Role Phone Unavailable Primary Care Provider Unavailabl e Encounter Details Date Type Department Care Team (Late st Contact Info) Description 01/03/2021 Transcribed Document [facility] Family Medicine [address] [place] [address] ProviderMacrina MD [address], [place] [id number] Social History Tobacco Use Types Packs/Day Years Used Date Smoking Tobacco: Never Assessed Sex and Gender Information Value Date Recorded Sex Assigned at Not on file Legal Sex Male 1:13 PM CDT Gender Identity Not on file Sexual Orientation Not on file documented as of this encounter Miscellaneous Notes * Cerner Conversion Note - Historical ProviderMD - 01/03/2021 9:[address] [facility] Charges Entered On: 01/03/2021 9:09 EDT Performed On: 01/03/2021 9:09 EDT by ARIANE PIERCE, PT [facility] Charges Physical Therapy Screen : 1 ARIANE PIERCE PT - 01/03/2021 9:09 EDT documented in this encounter Plan of Treatment Not on file documented as of this encounter Visit Diagnoses Not on filedocumented in this encounter
--- OUTSIDE RECORDS SUMMARY | 2025-01-16 11:45 | XMS_ITS | Encounter Summary ---
Author Organization [facility] [employer] Address [address] [place] [address] Care Team Providers Care State Wildlife Officer Name Role Phone Unavailable Primary Care Provider Unavailabl e Encounter Details Date Type Department Care Team (Late st Contact Info) Description 01/05/2021 Transcribed Document [facility] Pulm & Critical Care Medicine [address] [place] [address] [address] [place] [address] Willie Espinoza MD [address] [facility] [address] [place] [address] Social History Tobacco Use Types Packs/Day Years Used Date Smoking Tobacco: Never Assessed Sex and Gender Information Value Date Recorded Sex Assigned at Not on file Legal Sex Male 1:13 PM CDT Gender Identity Not on file Sexual Orientation Not on file documented as of this encounter Miscellaneous Notes * Cerner Conversion Note - Willie Espinoza MD - 01/05/2021 3:33 PM EDT Patient: JOSE ADORNO Age: 80 years Sex: Male : 1940 Associated Diagnoses: None Author: WILLIE ESPINOZA MD Referring physician: Dr. Gomez Reason for [...] WBC 13.1, low grade temp 101.1 temp. 6: Remains intubated without sedated on PS trial. [...] 0.5 MCG/KG/. Awake and following commands, positive manager style in bilateral hands. MRI brain yesterday revealed [...] balance past 24 hrs. Tolerating TF. +BM. ICU day: 10 Vent day: 5, extubated 12/31/20 Reintubated 01/01/21 TLDL 12/27/20 Intake & Output Totals Last 24 Hours (7a-7a) Intake (80 Events) Continuous Infusions (243.7328 mL) Medications (531.33 mL) Tube Feeding (1200 mL) Output (12 Events) Chest Tube Output: (60 mL) Spence Catheter (2325 mL) Input Total: 1975.0628 mL Output Total: 2385 mL Balance: -409.9372 mL Review of Systems Unable to obtain: Follows [...] Nebulized Inhalation, RT_Q4H, PRN: Shortness of Breath Maxipime + Sodium Chloride 0.9% intravenous solution 50 mL: 1,000 mg, 100 mL/Hr, IV Piggyback, Q6H Milk of Magnesia 8% oral suspension: 30 [...] Tab, 0 Refill(s), Medications (35) Active Scheduled: (13) #NaCl 0.9% *FLUSH* inj 10 mL 10 [...] Medical Aortic valve stenosis / SNOMED CT 974885169 / Confirmed At risk for sleep apnea / IMO [id number] / Confirmed Colorectal surgery / SNOMED CT 6581649580 / Confirmed HTN - Hypertension / SNOMED CT 6845003972 / Confirmed, Active Problems (13) Aortic stenosis, severe Aortic valve stenosis Arthritis of right knee At risk for sleep apnea Back pain, chronic Chronic anxiety Colorectal surgery Disorder of prostate GERD - Gastro-esophageal reflux disease H/O peripheral neuropathy HTN - Hypertension Hyperlipidemia Hypertension Physical Examination VS/Measurements Vitals Signs (last 24 hrs) Last Charted Minimum Maximum Apical HR 87 (JAN 05 15:01) 87 (JAN 05 15:01) 87 (JAN 05 15:01) Mon HR 81 (JAN 05 14:00) 69 (JAN 05 03:00) 82 (JAN 04:00) Resp Rate H 21 (JAN 05 14:00) L 10 (JAN 05 01:00) H 43 (JAN 05 00:22) SBP H 165 (JAN 05 14:00) 97 (JAN 05 07:00) H 169 (JAN 04 20:00) DBP 79 (JAN 05 14:00) L 52 (JAN 05 07:00) 80 (JAN 04 20:00) MAP 114 (JAN 05 14:00) 72 (JAN 05 07:00) 114 (JAN 04 20:00) SpO2 99 (JAN 05 14:00) 96 (JAN 05 01:00) 100 (JAN 05 11:00) Intake & Output Totals Last 24 Hours (7a-7a) Intake (80 Events) Continuous Infusions (243.7328 mL) Medications (531.33 mL) Tube Feeding (1200 mL) Output (12 Events) Chest Tube Output: (60 mL) Spence Catheter (2325 mL) Input Total: 1975.0628 mL Output Total: 2385 mL Balance: -409.9372 mL General: No acute distress, Intubated, RASS -1. Eye: Pupils are equal, round and reactive to light, Extraocular movements are intact, Normal conjunctiva. HENT: Normocephalic, Oral ET tube. Mouth: Oral mucosa ( Dry ). Neck: Supple, No lymphadenopathy. Respiratory: Breath sounds are equal, Coarse breath sounds bilaterally with diminished breath sounds in bilateral bases.. removed by cts 01/04 Cardiovascular: Normal rate, Regular rhythm, No edema. Gastrointestinal: Soft, Non-distended. Bowel sounds: All four quadrants, Diminished. Support: Gastric tube ( Nasal ). Genitourinary: Support: Urinary catheter ( Indwelling ). Musculoskeletal: No swelling, No deformity. Integumentary: Warm, Dry. Integumentary exam: Pale. Neurologic: Off sedation for SBT. Alert and follows commands. Moved both feet and gripped with both hands. RASS 0 CAM ICU NEGATIVE . Psychiatric: Unable to assess. Review / Management Results review: Labs (Last four charted values) WBC H 9.9 (DEC 12) 8.0 (CESAR 11) H 9.6 (CESAR 10) 9.0 (CESAR 09) HB L 7.8 (CESAR 12) L 7.3 (CESAR 11) L 8.1 (CESAR 10) L 7.7 (CESAR 09) HCT L 24.2 (CESAR 12) L 23.4 (CESAR 11) L 25.5 (CESAR 10) L 24.1 (CESAR 09) Plt 174 (CESAR 12) L 143 (CESAR 11) L 147 (CESAR 10) 163 (CESAR 09) Na 141 (CESAR 12) 145 (CESAR 11) 145 (CESAR 10) 143 (CESAR 09) K 4.2 (CESAR 12) 4.1 (CESAR 11) 4.0 (CESAR 10) 4.5 (CESAR 10) Cl 111 (CESAR 12) 112 (CESAR 11) 112 (CESAR 10) 111 (CESAR 09) CO2 29 (CESAR 12) 29 (CESAR 11) 30 (CESAR 10) 31 (CESAR 09) BUN H 24 (CESAR 12) H 25 (CESAR 11) H 34 (CESAR 10) H 39 (CESAR 09) Cr L 0.60 (CESAR 12) 0.80 (CESAR 11) 0.80 (CESAR 10) 0.80 (CESAR 09) Glu R H 126 (CESAR 12) H 130 (CESAR 11) H 138 (CESAR 10) H 129 (CESAR 09) Ca L 7.8 (CESAR 12) L 8.1 (CESAR 11) L 7.7 (CESAR 10) L 7.8 (CESAR 09) Lactic 1.2 (CESAR 07) 1.4 (CESAR 06) 1.4 (CESAR 06) 1.7 (CESAR 06) PT 11.4 (CESAR 04) H 17.4 (CESAR 03) H 14.3 (CESAR 03) H 18.7 (CESAR 03) INR 1.1 (CESAR 04) H 1.7 (CESAR 03) H 1.4 (CESAR 03) H 1.8 (CESAR 03) PTT 27.8 (CESAR 05) H 62.4 (CESAR 03) H 37.3 (CESAR 03) H 55.9 (CESAR 03) AST H 46 (CESAR 12) 32 (CESAR 11) H 39 (CESAR 10) 32 (CESAR 09) ALT 46 (CESAR 12) 35 (CESAR 11) 33 (CESAR 10) 28 (CESAR 09) ALK P 63 (CESAR 12) 63 (CESAR 11) 73 (CESAR 10) 65 (CESAR 09) T Bili 1.1 (CESAR 12) H 1.5 (CESAR 11) H 1.3 (CESAR 10) H 1.7 (CESAR 09) PTN L 5.3 (CESAR 12) L 5.2 (CESAR 11) L 5.3 (CESAR 10) L 5.1 (CESAR 09) ALB L 2.2 (CESAR 12) L 2.3 (CESAR 11) L 2.1 (CESAR 10) L 2.0 (CESAR 09) Troponin <0.015 (CESAR 01) . Blood Gases (Current Encounter/Past 24 Hours) pH Art 7.47 HI 01/05/2021 08:05 pCO2 Art 37.8 01/05/2021 04:28 pO2 Art 83.5 01/05/2021 04:28 HCO3 Art 27.4 HI 01/05/2021 08:05 BE Art 3.5 HI 01/05/2021 08:05 sO2 Art 97.7 01/05/2021 04:28 tHb Art 8.4 LOW 01/05/2021 08:05 FHHb <2.4 NA 01/05/2021 04:28 ctO2 11.4 NA 01/05/2021 04:28 FIO2 Art 40 NA 01/05/2021 04:28 Delivery Device Type Art Ventilator 01/05/2021 04:28 Temperature, F Art 98.6 NA 01/05/2021 04:28 Art Blood Gas (ABG) Site Arterial Line NA 01/05/2021 04:28 Acceptable Grey's Test Art Non-Applicable NA 01/05/2021 04:28 Ventilator Mode Art ac NA 01/05/2021 04:28 Tidal Volume Set Art 440.0 NA 01/05/2021 04:28 Set Rate Art 14.0 NA 01/05/2021 04:28 Respiratory Rate Art 15.0 NA 01/05/2021 04:28 CPAP/PEEP Art 8.0 NA 01/05/2021 04:28 ABG Num of Draw Attempts 1 NA 01/05/2021 04:28 PaO2/FiO2 calculated 209 01/05/2021 04:28 JAN 05 05:20 141 111 H 24 / H 126 4.2 29 L 0.60 \ DEC 12 05:20 \ L 7.8 / H 9.9 174 / L 24.2 \ Blood Gases (Current Encounter/Past 24 Hours) pH Art 7.47 HI 01/05/2021 08:05 pCO2 Art 37.8 01/05/2021 04:28 pO2 Art 83.5 01/05/2021 04:28 HCO3 Art 27.4 HI 01/05/2021 08:05 BE Art 3.5 HI 01/05/2021 08:05 sO2 Art 97.7 01/05/2021 04:28 tHb Art 8.4 LOW 01/05/2021 08:05 FHHb <2.4 NA 01/05/2021 04:28 ctO2 11.4 NA 01/05/2021 04:28 FIO2 Art 40 NA 01/05/2021 04:28 Delivery Device Type Art Ventilator 01/05/2021 04:28 Temperature, F Art 98.6 NA 01/05/2021 04:28 Art Blood Gas (ABG) Site Arterial Line NA 01/05/2021 04:28 Acceptable Grey's Test Art Non-Applicable NA 01/05/2021 04:28 Ventilator Mode Art ac NA 01/05/2021 04:28 Tidal Volume Set Art 440.0 NA 01/05/2021 04:28 Set Rate Art 14.0 NA 01/05/2021 04:28 Respiratory Rate Art 15.0 NA 01/05/2021 04:28 CPAP/PEEP Art 8.0 NA 01/05/2021 04:28 ABG Num of Draw Attempts 1 NA 01/05/2021 04:28 PaO2/FiO2 calculated 209 NA 01/05/2021 04:28 Radiology Results (Last 48 hours) [id number] -- 12/27/2020 06:39 CR Chest 1 Vw Portable (01/04/2021 04:41) Result: PORTABLE CHEST 01/04/2021 4:00 AM HISTORY: Respiratory distress.COMPARISON: Previous day .FINDINGS: The heart is enlarged but stable in size. There isatherosclerosis. There has been no significant change in the bibasilaropacities. There is no pneumothorax. The support devices are instable position. The patient is status post median sternotomy andprosthetic valve replacement.IMPRESSION: There has been no significant interval change .Continued follow-up recommended. Images reviewed, interpreted, and dictated by Dr. Manoj Juarez.Transcribed by HERBERTH Baum have personally viewed, interpreted and dictated the examination. Ihave read and agree with the above final transcribed report. CT Chest WO (01/04/2021 18:36) Result: CT OF THE CHEST WITHOUT CONTRASTHISTORY: Pleural effusions. Assess for need for thoracentesis..PROCEDURE: Routine axial images were obtained from the lung apices tobelow the diaphragm without IV contrast administration. This study wasperformed with techniques to keep radiation doses as low as reasonablyachievable, (ALARA). Individualized dose reduction techniques usingautomated exposure control or adjustment of mA and/or kV according tothe patient size were employed.COMPARISON: None.FINDINGS: There are bilateral dependent pleural effusions. Small on theleft and [id number] on the right side. These are associated withpartial lower lobe atelectasis. The lungs are otherwise clear. There isno significant adenopathy. Sternotomy and TAVR have been performed thereis no acute osseous abnormality..IMPRESSION: Left greater than right dependent pleural effusions.. CR Chest 1 Vw Portable (01/05/2021 03:56) Result: PORTABLE CHESTHISTORY: Pleural effusion.COMPARISON: 01/04/2021.FINDINGS: A single portable radiograph of the chest was performed. Thelife-support lines are stable. The patient status post TAVR. A rightinternal jugular central line is present in superior vena cava. Afeeding tube seen below the diaphragm. There is cardiomegaly. There iscalcified plaque of the aorta. There are bilateral effusions, rightgreater than left. Overall, compared to the prior study, there has beenimprovement in the effusions. There is improved aeration of the lungsoverall persistent dense consolidation/collapse the left lung base. Aright basilar chest tube has been removed. A mediastinal drain has beenremoved.IMPRESSION:1. Status post TAVR 2. Cardy with vascular congestion.3. Dense consolidation/collapse the left lung base4. Persistent effusions, right greater than left. Overall , there isimproved aeration of the lungs. Images reviewed, interpreted, and dictated by Bebeto Avelar MD CT Thoracentesis w/ IMAG Guid RT (01/05/2021 11:30) Result: CT-GUIDED THORACENTESISHISTORY: Pleural effusion.ATTENDING PHYSICIAN: Dr. Youssef CONCRETE CRUSHER LOADER OPERATOR: ANAYA CantorCTECHNIQUE: Informed consent was obtained from the patient. [...] started 12/31 stopped 01/05 Impression and Plan Pulmonary Acute hypoxic respiratory failure: Overall is better initially improved ---extubated ----> 12/31 then required NIPPV , poor cough, reintubated 01/01 secondary to PEA arrest Volume overload vs. TRALI due to multiple blood transfusion bilateral atelectasis and effusions , right more than left may need a right thoracentesis acute pulm edema improved Klebsiella pneumonia, especially in the right lower lung improved Patient received more than 20 L including crystalloid, colloid blood products and now Intubated during CODE BLUE on 12/27 PFTs with normal spirometry in November 2020 Never a smoker Bronchoscopy 01/04: mucus plugging in RLL Thoracentesis 01/05: 900 ml Cardiac Severe s/p TAVR with questionable tear [...] + Klebsiella aerogenes Endocrine Glycemic control Neuro Acute encephalopathy multiple infarcts : hypotension and s/p TAVR Physical deconditioning right upper ext flaccid and right lower exts weakness ; ( improved) MRI brain: multiple bilateral acute infarcts PLAN: Vent bundle Daily SAT/SBT. S/P thoracentesis this AM, follow cultures Duonebs prn Sedation: Precedex, Fentanyl for goal RASS -1 to 0, off for SBT Neuro following, appreciate Dr. Thorne's input Hemodynamics: Stable, off pressors CTS following Cardiology following -Stop Amio secondary to prolonged QTc, discussed with CTS and cardiology Anbx: Zosyn for total of 8 days, Klebsiella PNA, stop Zosyn and switch to Cefepime continue course TF per dietary, Corpak in place Prophylaxis: Protonix, SCDs -Anticoagulation per CTS -Rediscussed with cardiothoracic surgery for initiation of proph anticoagulation hgb is border line.. Bowel regimen: Docusate, Senna, Miralax CXR and labs in AM FULL CODE Prognosis - Guarded. ADDENDUM: 1900 hours Patient did well on SBT and ABG was okay. Blood Gases (Current Encounter/Past 24 Hours) pH Art 7.47 HI 01/05/2021 08:05 pCO2 Art 37.8 01/05/2021 04:28 pO2 Art 83.5 01/05/2021 04:28 HCO3 Art 27.4 HI 01/05/2021 08:05 BE Art 3.5 HI 01/05/2021 08:05 sO2 Art 97.7 01/05/2021 04:28 tHb Art 8.4 LOW 01/05/2021 08:05 FHHb <2.4 NA 01/05/2021 04:28 ctO2 11.4 NA 01/05/2021 04:28 FIO2 Art 40 NA 01/05/2021 04:28 Delivery Device Type Art Ventilator 01/05/2021 04:28 Temperature, F Art 98.6 NA 01/05/2021 04:28 Art Blood Gas (ABG) Site Arterial Line NA 01/05/2021 04:28 Acceptable Grey's Test Art Non-Applicable NA 01/05/2021 04:28 Ventilator Mode Art ac NA 01/05/2021 04:28 Tidal Volume Set Art 440.0 NA 01/05/2021 04:28 Set Rate Art 14.0 NA 01/05/2021 04:28 Respiratory Rate Art 15.0 NA 01/05/2021 04:28 CPAP/PEEP Art 8.0 NA 01/05/2021 04:28 ABG Num of Draw Attempts 1 NA 01/05/2021 04:28 PaO2/FiO2 calculated 209 NA 01/05/2021 04:28 Hence proceeded with extubation to BIPAP with settings of 18/8 and Fio2 of 50% and rate of 20. Plan to keep him on BIPAP overnight and gradually wean him off BIPAP. given IV Bumex 1 mg X 1 time prior to extubation to decongest the lung. S/p Right thoracentesis this morning prior to extubation - 900 ml of fluid removed. D/w RN and RT. I saw and examined the patient at bedside, obtained medical history, reviewed labs, diagnostics and chest imaging data. I personally and independently visualized and interpreted chest imaging data on PACS. I formulated diagnosis and treatment plans. I made all medical decisions as above. Complex case and critically ill. Need high level of decision making. Cumulative Critical care time spent on the patient excluding procedures - 35 min. documented in this encounter Plan of Treatment Not on file documented as of this encounter Visit Diagnoses Not on filedocumented in this encounter
--- OUTSIDE RECORDS SUMMARY | 2025-01-16 11:45 | XMS_ITS | Encounter Summary ---
Author Organization [facility] Address [address] [place] [address] Care Team Providers Care Toxicology Supervisor Name Role Phone Unavailable Primary Care Provider Unavailabl e Encounter Details Date Type Department Care Team (Late st Contact Info) Description 01/01/2021 Transcribed Document [facility] [place] [place] Family Medicine [address] [place] [address] ProviderMacrina MD [address] [place] [address] Social History Tobacco Use Types Packs/Day Years Used Date Smoking Tobacco: Never Assessed Sex and Gender Information Value Date Recorded Sex Assigned at Not on file Legal Sex Male 1:13 PM CDT Gender Identity Not on file Sexual Orientation Not on file documented as of this encounter Miscellaneous Notes * Cerner Conversion Note - Historical ProviderMD - 01/01/2021 11:42 AM CDT Consult Phone Call Documentation Entered On: 01/01/2021 15:00 EDT Performed On: 01/01/2021 11:42 EDT by Sue Hazel Stationary Fireman-Health Unit Coord Phone Call for Consults Consult Phone Call/Page Attempt : First call Sue Hazel Care Asst-Health Unit Coord - 01/01/2021 15:00 EDT documented in this encounter Plan of Treatment Not on file documented as of this encounter Visit Diagnoses Not on filedocumented in this encounter
--- OUTSIDE RECORDS SUMMARY | 2025-01-16 11:45 | XMS_ITS | Encounter Summary ---
Author Organization [facility] Address [address] [place] [address] Care Team Providers Care Tyre Fitter Name Role Phone Unavailable Primary Care Provider Unavailabl e Encounter Details Date Type Department Care Team (Late st Contact Info) Description 01/06/2021 Transcribed Document [facility] [place] Family Medicine [facility] [place] [address] ProviderMacrina MD [address] [place] [id number] Social History Tobacco Use Types Packs/Day Years Used Date Smoking Tobacco: Never Assessed Sex and Gender Information Value Date Recorded Sex Assigned at Not on file Legal Sex Male 1:13 PM CDT Gender Identity Not on file Sexual Orientation Not on file documented as of this encounter Miscellaneous Notes * Cerner Conversion Note - Macrina Cordova MD - 01/06/2021 9:08 AM CDT Patient: JOSE ADORNO Age: 80 years Sex: Male : 1940 Associated Diagnoses: Anxiety; Cardiac tamponade; HTN (hypertension); GERD (gastroesophageal reflux disease); Mediastinal Hemorrhage; HLD (hyperlipidemia); History of Colon cancer S/P Surgery; Critical aortic stenosis; Peripheral neuropathy Author: MARILYN ROWLEY MD-CAT Basic Information Mr. Jose Adorno is an [...] 1012. 01/02/21: POD#6 Intubated and sedated on Aagshmov866esd/hr and Precedex .6mcg/kg/min. He is also on [...] with right hand today on command. 01/05/21: D#9. Resting, no issues overnite, follows commands, strength improved. Health Status Allergies: Allergic Reactions (Selected) No Known Allergies, No qualifying data available Current medications: (Selected) Inpatient Medications Ordered Ambien: 5 mg, Oral, At Bedtime, PRN: Sleep Ancef: 2 Gram, 50 mL, 100 mL/Hr, IV Piggyback, 1-Time Bumex: 1 mg, IV Push, 1-Time Dextrose: 25 Gram, IV Push, 1-Time, [...] lisinopril: 20 mg, Oral, BID metoprolol tartrate: 25 mg, Oral, BID morphine: 1 mg, IV [...] Tab, 0 Refill(s), Medications (38) Active Scheduled: (16) #NaCl 0.9% *FLUSH* inj 10 mL 10 mL, IV Push, Q12H aspirin 81 mg chew tab 81 mg 1 Tab, Oral, Daily atorvastatin 40 mg tab 40 mg 1 Tab, Oral, At Bedtime bumetanide 1 mg/4 mL inj 1 mg 4 mL, IV Push, 1-Time ceFAZolin/D5w 2 Gram 50 mL, IV Piggyback, [...] mg tab 25 mg 1 Tab, Oral, BID pantoprazole 40 mg inj [...] Tab, Oral, At Bedtime Problem list: Medical At risk for sleep apnea / IMO [id number] / Confirmed Colorectal surgery / SNOMED CT 4585446936 / Confirmed Aortic valve stenosis / SNOMED CT 420268295 / Confirmed HTN - Hypertension / SNOMED CT 7992224020 / Confirmed, Active Problems (13) Aortic stenosis, severe Aortic valve stenosis Arthritis of right knee At risk for sleep apnea Back pain, chronic Chronic anxiety Colorectal surgery Disorder of prostate GERD - Gastro-esophageal reflux disease H/O peripheral neuropathy HTN - Hypertension Hyperlipidemia Hypertension Physical Examination Intake and Output 24 hour intake: Total 2,315 ml 24 hour output: Urinary catheter 3,045 ml, Total 3,155 ml MT 0ml and Right CT 0ml / 12 hrs VS/Measurements Vitals Signs (last 24 hrs) Last Charted Minimum Maximum Apical HR L 10 (JAN 06 01:09) L 10 (JAN 06 01:09) 87 (JAN 05 15:01) Mon HR 95 (JAN 06 08:31) 72 (JAN 05 10:00) 108 (JAN 05 18:00) Resp Rate 16 (JAN 06:31) 15 (JAN 05 10:00) H 33 (JAN 06 06:00) SBP H 161 (JAN 06 08:00) 103 (JAN 05 10:00) H 169 (JAN 06 01:00) DBP 74 (JAN 06 08:00) L 56 (JAN 05 10:00) 79 (JAN 05 14:00) MAP 106 (JAN 06 08:00) 76 (JAN 05 10:00) 114 (JAN 05 14:00) SpO2 97 (JAN 06:31) 94 (JAN 06 05:30) 100 (JAN 05 11:00) General: Intubated and arouses, follows simple commands. HENT: Normocephalic. Neck: Supple. Respiratory: Breath sounds: Rhonchi present. Cardiovascular: Normal rate, 70 beats per minute, Regular rhythm, S1, S2, No edema. Gastrointestinal: Soft, Non-distended, Normal bowel sounds. Integumentary: Warm, Dry, [place]. Neurologic: The pt is able to move both his left and right side with right being weaker than the left. . Psychiatric: Cooperative. Review / Management Results review: JAN 06 04:30 138 106 22 / H 119 3.8 28 L 0.60 \ JAN 06 04:30 \ L 9.2 / H 15.8 253 / L 28.1 \ Blood Gases (Current Encounter/Past 24 Hours) pH Art 7.49 HI 01/06/2021 07:08 pCO2 Art 37.3 01/06/2021 05:09 pO2 Art 72.3 LOW 01/06/2021 07:08 HCO3 Art 28.7 HI 01/06/2021 07:08 BE Art 5.1 HI 01/06/2021 07:08 sO2 Art 95.8 01/06/2021 05:09 tHb Art 9.8 LOW 01/06/2021 07:08 FHHb 4.1 NA 01/06/2021 05:09 ctO2 13.1 NA 01/06/2021 05:09 Delivery Device Type Art Cannula NA 01/06/2021 05:09 Temperature, F Art 98.6 NA 01/06/2021 05:09 Art Blood Gas (ABG) Site Right Radial NA 01/06/2021 05:09 Acceptable Grey's Test Art Acceptable NA 01/06/2021 05:09 Ventilator Mode Art N/A NA 01/06/2021 05:09 Oxygen Flow Rate Art 6.0 NA 01/06/2021 05:09 ABG Num of Draw Attempts 1 NA 01/06/2021 05:09 Coagulation Results (Current Encounter/Past 24 Hours) No [...] the pt tolerated well SBT later today 01/06/21: extubated, alert. Moving all exts. CXR: ok. Needs PT and rehab Diagnosis Anxiety - Pre-Op Diagnosis, Medical. Cardiac [...] Diagnosis, Medical. Electronically signed by Elmer [facility] Conversion Cable Spooler Cerner at 11/10/2022 9:29 AM CDT documented in this encounter Plan of Treatment Not on file documented as of this encounter Visit Diagnoses Not on filedocumented in this encounter
--- OUTSIDE RECORDS SUMMARY | 2025-01-16 11:45 | XMS_ITS | Encounter Summary ---
Author Organization [facility] Address [address] [place] [address] Care Team Providers Care Chocolate Refining Roller Name Role Phone Unavailable Primary Care Provider Unavailabl e Encounter Details Date Type Department Care Team (Late st Contact Info) Description 12/27/2020 Transcribed Document [facility] [facility] [place] [address] [place] [address] ProviderMacrina MD [address] [place], [place] [phone] Social History Tobacco Use Types Packs/Day Years [...] 6:33 PM CDT Pain Assessment Entered On: 01/18/2021 4:04 EDT Performed On: 01/17/2021 23:08 EDT by Manoj Thomason RN-Resource Intervention Information: acetaminophen-HYDROcodone Performed by Manoj Thomason RN-Resource on 01/17/2021 22:08:00 EDT acetaminophen-HYDROcodone,2Tab Oral,Pain (Moderate 4-6) Pain Assessment Pain Assessment : Follow-up assessment Pain Scale Goal : 3 Pain Improved by Intervention : Yes Manoj Thomason RN-Resource - 01/18/2021 4:04 EDT documented in this encounter Plan of Treatment Not on file documented as of this encounter Visit Diagnoses Not on filedocumented in this encounter
--- OUTSIDE RECORDS SUMMARY | 2025-01-16 11:45 | XMS_ITS | Encounter Summary ---
Author Organization [facility] Address [address] [place] [address] Care Team Providers Care Lecturer In Marketing Name Role Phone Unavailable Primary Care Provider Unavailabl e Encounter Details Date Type Department Care Team (Late st Contact Info) Description 01/05/2021 Transcribed Document [facility] [place] [address] [place] [address] ProviderMacrina MD [address] [place], [place] [address] Social History Tobacco Use Types Packs/Day Years Used Date Smoking Tobacco: Never Assessed Sex and Gender Information Value Date Recorded Sex Assigned at Not on file Legal Sex Male 1:13 PM CDT Gender Identity Not on file Sexual Orientation Not on file documented as of this encounter Miscellaneous Notes * Cerner Conversion Note - Historical ProviderMD - 01/05/2021 11:43 AM CDT Patient: JOSE ADORNO Age: 80 years Sex: Male : 1940 Associated Diagnoses: None Author: PEYTON CARSON PA-C Status post CT guided thoracentesis. Approximately 900 mls of serous pleural fluid removed. The patient tolerated the procedure well. documented in this encounter Plan of Treatment Not on file documented as of this encounter Visit Diagnoses Not on filedocumented in this encounter
--- OUTSIDE RECORDS SUMMARY | 2025-01-16 11:45 | XMS_ITS | Encounter Summary ---
Author Organization [facility] [employer] [facility] Address [address] [place] [address] Care Team Providers Care Jewelry Department Supervisor Name Role Phone Unavailable Primary Care Provider Unavailabl e Encounter Details Date Type Department Care Team (Late st Contact Info) Description 01/04/2021 Transcribed Document [facility] [place] [address] [place] [address] ProviderMacrina MD [address] [place] [address] Social History Tobacco Use Types Packs/Day Years Used Date Smoking Tobacco: Never Assessed Sex and Gender Information Value Date Recorded Sex Assigned at Not on file Legal Sex Male 1:13 PM CDT Gender Identity Not on file Sexual Orientation Not on file documented as of this encounter Miscellaneous Notes * Cerner Conversion Note - Macrina ProviderMD - 01/04/2021 3:13 PM CDT On Going Discharge Planning Entered On: 01/04/2021 15:16 EDT Performed On: 01/04/2021 15:13 EDT by SOPHY RM Rn-Senior Software Qa EngineerPain Coordinator Progress Note Discharge Arrangements : Patient Post-Acute [...] : Clinical Condition of Patient SOPHY RM Rn-Senior Software Qa Engineer - 01/04/2021 15:13 EDT Narrative Progress Note Narrative Progress Note : HD#8; ELOS 3; LRR; BOOST 6; POD#8 - Elec TAVR/LVentTear/Cardiac Tamponade - intubated fi02 100; awake/calm/following commands; bronchoscopy scheduled today; SBT; T=101.2; MRI - diffuse scattered bilateral infarcts; Dr. Navarro states during MDR that if pt is unable to successfully wean over weekend will need trach/peg consult on Thursday; continue to follow; will need therapy evaluations when extubated. Historical Progress Note : HD#7; ELOS 3; LRR; BOOST 6; POD#7 - Elective TAVR/LVentTear/CardiacTamponade/Arrest - intubated fi02 40/peep 8; SBT x 2 hr; Fent/Precedex gtt; Corpak/TF; Humza CT in place; Neurology following - MRI diffuse scattered bilateral infarcts; pt w/improvement in movement of R side; PT/OT evaluations when extubated; DCP TBD - likely rehab. SOPHY RM Rn-Senior Software Qa Engineer - 01/03/21 15:03:09 HD#6; ELOS 3; LRR; BOOST 6; POD #6 - Electiv TAVR/L Vent Tear/Cardiac Tamponode/Arrest - reintubated 01/01; fi02 40; Levo/Fent/Precedex gtt; wean sedation - on SBT 2hr TID; T=99.9; Dr. Navarro states during MDR that pt's spouse aware may need trach/peg; DCP TBD pending progress. SOPHY RM Rn-Senior Software Qa Engineer - 01/02/21 14:55:12 HD#5; ELOS 3; LRR; BOOST 6; POD #5 - Elective TAVR/L Ventrial Tear/Cardiac Tamponode; extubated on 12/31 required reintubation today fi02 60/peep 8; Precedex/Fent gtt; Corpak/TF; IV Zosyn; CT draining; T=100; DCP TBD pending progress; will need therapy evals when appropriate. SOPHY RM Rn-Senior Software Qa Engineer - 01/01/21 14:47:57 HD#4; ELOS 3; LRR; POD#4 - Electiv TAVR; L Ventrical Tear; intubated fi02 50; Cardene gtt; Corpak to be placed and TF initiated; SBT today; following commands; Head MRI ordered; possible extubation post MRI; no movement noted on R side; will need PT/OT evaluations when extubated; DCP pending progress - likely rehab. SOPHY RM Rn-Senior Software Qa Engineer - 12/31/20 14:58:43 DCP TBD - pending progress; OP Cardiac Rehab referral placed thru [facility]. SOPHY RM Rn-Senior Software Qa Engineer - 12/28/20 12:42:03 SOPHY RM Rn-Senior Software Qa Engineer - 01/04/2021 15:13 EDT documented in this encounter Plan of Treatment Not on file documented as of this encounter Visit Diagnoses Not on filedocumented in this encounter
--- OUTSIDE RECORDS SUMMARY | 2025-01-16 11:45 | XMS_ITS | Encounter Summary ---
Author Organization [facility] Address [address] [place] [address] Care Team Providers Care Mathematical Physicist Name Role Phone Unavailable Primary Care Provider Unavailabl e Encounter Details Date Type Department Care Team (Late st Contact Info) Description 12/28/2020 Transcribed Document [facility] [place] [facility] [place] [address] ProviderMacrina MD [address], [place] [id number] Social History Tobacco Use Types Packs/Day Years Used Date Smoking Tobacco: Never Assessed Sex and Gender Information Value Date Recorded Sex Assigned at Not on file Legal Sex Male 1:13 PM CDT Gender Identity Not on file Sexual Orientation Not on file documented as of this encounter Miscellaneous Notes * Cerner Conversion Note - Macrina Cordova MD - 12/28/2020 1:08 PM CDT Patient: JOSE ADORNO Age: 80 [...] (including blood loss). WBC 7.4, no fevers. Review of Systems Unable to obtain: Patient sedated on ventilator.. Health Status Allergies: Allergic Reactions (Selected) No Known Allergies, No qualifying data available Current medications: (Selected) Inpatient Medications Ordered Ambien: 5 mg, Oral, At Bedtime, PRN: Sleep Ancef: 2 Gram, 50 mL, 100 mL/Hr, IV Piggyback, 1-Time D5W 1,000 mL: 80 mL/Hr, IntraVENous Dextrose: 25 Gram, IV Push, 1-Time, PRN: Hypoglycemia Dextrose: 25 Gram, IV Push, 1-Time, PRN: Hypoglycemia Dulcolax Laxative: 10 mg, Rectal, Daily, PRN: Constipation DuoNeb 0.5 mg-2.5 mg/3 mL inhalation solution: 3 mL, Nebulized Inhalation, RT_Q4H, PRN: Shortness of Breath EPINEPHrine injection 10 mg + NaCl 0.9% for drip 250 mL: TITRATE, IntraVENous Insulin regular injection 100 Units + Sodium Chloride 0.9% intravenous solution 100 mL: Corrective Insulin Drip, IntraVENous Lactated Ringers Injection intravenous solution 1,000 mL: 20 mL/Hr, IntraVENous Lasix: 20 mg, IV Push, 1-Time, PRN: Other (See Comment) Lasix: 40 mg, IV Push, 1-Time Lipitor: 20 mg, Oral, At Bedtime Milk [...] mg, Oral, At Bedtime Sodium Chloride 0.9% bolus: 250 mL, 500 mL/Hr, IV Piggyback, On-CALL, PRN: Hypotension Sodium Chloride 0.9% intravenous solution 500 mL: [...] Daily gabapentin: 600 mg, Oral, At Bedtime lisinopril: 10 mg, Oral, BID magnesium sulfate: 1.5 Gram, 3 mL, 100 mL/Hr, IV Piggyback, Q8H metoprolol tartrate: 12.5 mg, Oral, BID morphine: [...] IV Piggyback, Q1H, PRN: Other (See Comment) potassium phosphate: 15 mMole, 5 mL, 63.75 mL/Hr, IV Piggyback, 1-Time propofol injection 1,000 mg + Premix Diluent [...] 1 Tab, Oral, BID, 0 Refill(s), Medications (51) Active Scheduled: (17) #NaCl 0.9% *FLUSH* inj [...] 20 mg 2 mL, IV Push, BID furosemide 40 mg/4 mL inj 40 mg 4 mL, IV Push, 1-Time gabapentin 300 mg cap 300 mg 1 Cap, Oral, Daily gabapentin 600 mg tab 600 mg 1 Tab, Oral, At Bedtime lisinopril 10 mg tab 10 mg 1 Tab, Oral, BID magnesium sulfate 50% 1.5 Gram 3 mL, IV Piggyback, Q8H metoprolol tartrate 25 mg tab 12.5 mg 0.5 Tab, Oral, BID potassium phosphate 15 mMole 5 mL, IV Piggyback, 1-Time senna 8.6 mg tab 17.2 mg 2 Tab, Oral, At Bedtime senna/docusate 8.6/50 mg tab 1 Tab, Oral, BID Continuous: (12) dexmedeTOMIDine 400 mcg + NaCl 0.9% TITRATE 100 mL 100 mL, IntraVENous Dextrose 5% in Water 1,000 mL 1,000 mL, IntraVENous, 80 mL/Hr EPINEPHrine 10 mg + NaCl 0.9% T ITRATE 250 mL 250 mL, IntraVENous fentaNYL 1,000 mcg + Premix Diluent NaCl 0.9% TITRATE 100 mL 100 mL, IntraVENous insulin regular 100 Units + NaCl 0.9% 100 mL 100 mL, IntraVENous lactated ringers [...] TITRATE 100 mL 100 mL, IntraVENous PRN: (22) #NaCl 0.9% *FLUSH* [...] 2 mg 1 mL, IV Push, Q30Min NaCl 0.9% 250 mL, IV Piggyback, On-CALL nitroglycerin 0.4 mg tab # 25 btl [...] At risk for sleep apnea / IMO [id number] / Confirmed Colorectal surgery / SNOMED CT 8691240789 / Confirmed Aortic valve stenosis / SNOMED CT 030373763 / Confirmed HTN - Hypertension / SNOMED CT 0187356058 / Confirmed, Active Problems (13) Aortic stenosis, severe Aortic valve stenosis Arthritis of right knee At risk for sleep apnea Back pain, chronic Chronic anxiety Colorectal surgery Disorder of prostate GERD - Gastro-esophageal reflux disease H/O peripheral neuropathy HTN - Hypertension Hyperlipidemia Hypertension Physical Examination VS/Measurements Vitals Signs (last 24 hrs) Last Charted Minimum Maximum Apical HR H 124 (DEC 27 13:53) H 124 (DEC 27 13:53) H 124 (DEC 27 13:53) Mon HR 65 (DEC 28 11:30) 60 (DEC 27 20:45) 133 (DEC 27 13:45) Resp Rate 16 (DEC 28 11:30) L 4 (DEC 27 18:15) H 27 (DEC 27 15:30) SBP L 85 (DEC 28 11:03) L 75 (DEC 27 18:45) H 175 (DEC 27 15:30) DBP L 50 (DEC 28 11:03) L 50 (DEC 27 18:45) H 93 (DEC 27 13:30) MAP 57 (DEC 28 11:03) 54 (DEC 27 14:00) 144 (DEC 27 15:30) SpO2 L 92 (DEC 28 11:30) L 85 (DEC 28 11:03) 100 (DEC 27 15:45) General: Sedated on mechanical ventilator. RASS -4. [...] review: Labs (Last four charted values) WBC 7.4 (DEC 28) 7.4 (DEC 27) H 19.7 (DEC 27) H 17.9 (DEC 27) HB L 8.3 (DEC 04) L 8.3 (DEC 04) L 8.2 (DEC 04) L 7.9 (DEC 03) HCT L 23.9 (DEC 04) L 23.8 (DEC 04) L 23.7 (DEC 04) L 22.8 (DEC 03) Plt L 124 (CESAR 04) 174 (CESAR 03) L 93 (CESAR 03) L 121 (CESAR 03) Na H 151 (CESAR 04) H 150 (CESAR 03) 146 (CESAR 03) 141 (CESAR 01) K 3.8 (CESAR 04) 4.2 (CESAR 04) L 3.2 (CESAR 04) 4.0 (CESAR 03) Cl H 118 (CESAR 04) H 115 (CESAR 03) H 114 (CESAR 03) 109 (CESAR 01) CO2 29 (CESAR 04) 25 (CESAR 03) L 20 (CESAR 03) 28 (CESAR 01) BUN 14 (CESAR 04) 13 (CESAR 03) 14 (CESAR 03) 15 (CESAR 01) Cr 0.80 (CESAR 04) 0.90 (CESAR 03) 0.70 (CESAR 03) 0.70 (CESAR 01) Glu R 90 (CESAR 04) H 216 (CESAR 03) H 253 (CESAR 03) H 111 (CESAR 01) Ca 9.1 (CESAR 04) 8.8 (CESAR 03) L 8.3 (CESAR 03) 9.0 (CESAR 01) Lactic 2.0 (CESAR 04) 1.7 (CESAR 04) C 5.0 (CESAR 03) C 5.9 (CESAR 03) PT 11.4 (CESAR 04) H 17.4 (CESAR 03) H 14.3 (CESAR 03) H 18.7 (CESAR 03) INR 1.1 (CESAR 04) H 1.7 (CESAR 03) H 1.4 (CESAR 03) H 1.8 (CESAR 03) PTT H 62.4 (CESAR 03) H 37.3 (CESAR 03) H 55.9 (CESAR 03) 26.8 (CESAR 01) AST H 141 (CESAR 04) H 179 (CESAR 03) H 267 (CESAR 03) 19 (CESAR 01) ALT H 85 (CESAR 04) H 108 (CESAR 03) H 203 (CESAR 03) 20 (CESAR 01) ALK P 53 (CESAR 04) 46 (CESAR 03) 76 (CESAR 03) 107 (CESAR 01) T Bili H 2.2 (CESAR 04) H 1.5 (CESAR 03) 1.0 (CESAR 03) 1.0 (CESAR 01) PTN L 4.8 (CESAR 04) L 4.3 (CESAR 03) L 4.6 (CESAR 03) 6.6 (CESAR 01) ALB L 2.7 (CESAR 04) L 2.6 (CESAR 03) L 2.6 (DEC 27) 3.4 (DEC 25) Troponin <0.015 (DEC 25) . Blood Gases (Current Encounter/Past 24 Hours) pH Art 7.63 CRIT 12/28/2020 08:44 pCO2 Art 29.1 LOW 12/28/2020 08:44 pO2 Art 188.0 HI 12/28/2020 08:44 HCO3 Art 30.5 HI 12/28/2020 08:44 BE Art 9.1 HI 12/28/2020 08:44 sO2 Art >100.0 12/28/2020 04:43 tHb Art 8.7 LOW 12/28/2020 08:44 FHHb <2.4 NA 12/28/2020 04:43 ctO2 13.9 NA 12/27/2020 18:45 FIO2 Art 60 NA 12/28/2020 04:43 Delivery Device Type Art Ventilator 12/28/2020 04:43 Temperature, F Art 98.6 NA 12/28/2020 04:43 Art Blood Gas (ABG) Site Arterial Line NA 12/28/2020 04:43 Acceptable Grey's Test Art Non-Applicable NA 12/28/2020 04:43 Ventilator Mode Art ac NA 12/28/2020 04:43 Tidal Volume Set Art 460.0 NA 12/28/2020 04:43 Set Rate Art 18.0 NA 12/28/2020 04:43 Respiratory Rate Art 18.0 NA 12/28/2020 04:43 CPAP/PEEP Art 5.0 NA 12/28/2020 04:43 pH Art POC 7.365 12/27/2020 17:54 pCO2 Art POC 54.2 OK 12/27/2020 22:07 pO2 Art POC 141.0 OK 12/27/2020 22:07 HCO3 Art POC 31.0 HI 12/27/2020 22:05 tCO2 Art POC 33.0 HI 12/27/2020 22:06 BE Art POC 6.0 OK 12/27/2020 22:06 sO2 Art POC 99.0 OK 12/27/2020 22:07 ABG Num of Draw Attempts 1 NA 12/28/2020 04:43 PaO2/FiO2 calculated 313 NA 12/28/2020 04:43 Radiology Results (Last 48 hours) [id number] -- 12/27/2020 06:39 CR Chest 1 Vw [...] by Dr. Brayan Pratt.Transcribed by Mynor Mullins (Sherron).I have personally viewed, interpreted and dictated the [...] titrate FiO2 to maintain sat 89-94% - current vent settings AC 18, TV 440, PEEP 5, FiO2 70%; increase the PEEP to 10 and try to wean FiO2 as tolerated Chest x-ray - rib fracture noted - continue to follow chest x-rays Sedation: Fentanyl/Propofol RASS -0-1 drip for goal RASS -1 Daily SAT/SBT trial--Hopeful to extubate today Hemodynamics: Levo for goal MAP >65mmHg. Avoid hypotension due to presence of left ventricular rupture repair Antibiotics: -Ancef per cardiology Serial H and H Q6H Lactic acid monitor-- Hypernatremia; sodium at 150. Check sodium at@1400. Start IVF D5W @80ml/hr Replace Phosphorus Monitor H/H blood loss CTS following MT X 1, CT X 1; approximately 370ml from the MT over the past 12 hrs and 150 from the right chest tube Pepcid/SCD Overall remains critically ill, intubated mechanical ventilation following her procedure complicated with left ventricular tear resulted in hemopericardium with significant acute blood loss, required several blood products transfusion and volume resuscitation. Patient status post LV tear repair. The patient's hemodynamic are significantly improved he is currently on low-dose Levophed to keep MAP above 65 mmHg. We will avoid hypotension patient at risk for JINNY. Patient also developed acute bilateral infiltrate likely due to volume overload vs. TRALI due to blood product transfusion. Unable to extubate due to acute hypoxic respiratory failure secondary to volume overload vs. TRALI due to blood product transfusion. Unable to diurese today due to hypernatremia with sodium 150. Will consider chlorothiazide I have personally evaluated the patient; history and review of systems, physical examination, laboratory studies and radiology data. I have actively directed the medical care, formulated diagnosis and plan and discussed it with our team. Prognosis: guarded. Critically ill, hemorrhagic shock, pericardial tamponade status post window, left ventricular tear s/p repair, acute hypoxic respiratory failure, mechanical ventilation. High risk mortality morbidity Full code Discussed with his in detail Discussed with anesthesia, cardiology (Jason ) and cardiothoracic surgery (Marga) attendings Very critically unstable, complex case, requires frequent assessments and high level of decision making. Critical care time spent on this patient is 77 minutes Electronically signed by Olinda Payne Conversion Application Integration Engineer Cerner at 11/10/2022 9:09 AM CDT documented in this encounter Plan of Treatment Not on file documented as of this encounter Visit Diagnoses Not on filedocumented in this encounter
--- OUTSIDE RECORDS SUMMARY | 2025-01-16 11:45 | XMS_ITS | Encounter Summary ---
Author Organization [employer] [facility] Address [address] [place] [address] Care Team Providers Care Candle Molder Name Role Phone Unavailable Primary Care Provider Unavailabl e Encounter Details Date Type Department Care Team (Late st Contact Info) Description 01/09/2021 Transcribed Document [facility] [place] Family Medicine [address] [place] [address] ProviderMacrina MD [address] [place] [address] Social History Tobacco Use Types Packs/Day Years Used Date Smoking Tobacco: Never Assessed Sex and Gender Information Value Date Recorded Sex Assigned at Not on file Legal Sex Male 1:13 PM CDT Gender Identity Not on file Sexual Orientation Not on file documented as of this encounter Miscellaneous Notes * Cerner Conversion Note - Macrina Cordova MD - 01/09/2021 10:50 AM CDT Patient: JOSE ADORNO Age: 80 years Sex: Male : 1940 Associated Diagnoses: None Author: ANANDA QUILES MD-ZURDO Subjective Patient continues to report he is doing poorly, complains of poor sleep; he is improving per nurse, no new issues reported Objective VS/Measurements Vital Signs/Vital Measures 01/09/2021 8:11 EDT Heart Rate Monitored 106 bpm [place] 01/09/2021 6:45 EDT Systolic Blood Pressure 129 mmHg Diastolic Blood Pressure 64 mmHg Clinical Temperature, F 99.5 Deg F General: Pt is awake and alert, oriented to person/place; speech is very dysarthric and difficult to understand. He follows commands well. Eye: Pupils are equal, round and reactive to light, Extraocular movements are intact. Respiratory: gurgling respirations at times, upper airway noise. Cardiovascular: Normal rate, Regular rhythm. Neurologic: R facial droop, CN otherwise grossly intact; he remains weak on right side, 3/5 strength in RUE, 4/5 in LLE. He has right neglect, does not look all the way right but does follow commands on right well. Psychiatric: flat affect, appears depressed. Results Review Labs reviewed Impression and Plan 80yo M with h/o severe aortic stenosis admitted for TAVR which was performed on 12/27; post-op course complicated by pericardial effusion causing tamponade and cardiac arrest, resp failure and embolic strokes. He is improving, now extubated and with improved right side strength. He remains with severe dysarthria and is not yet able to ambulate; he has clinical signs of depression during my evaluations, and is agreeable to start an antidepressant- will start Lexapro today. He is on asa/statin for stroke prophylaxis. Recommend to continue PT/OT/speech therapy; may need PEG if ability to swallow is not improving. I will continue to follow intermittently, call with questions. documented in this encounter Plan of Treatment Not on file documented as of this encounter Visit Diagnoses Not on filedocumented in this encounter
--- OUTSIDE RECORDS SUMMARY | 2025-01-16 11:45 | XMS_ITS | Encounter Summary ---
Author Organization [facility] Address [address] [place] [address] Care Team Providers Care Awning Assembler Name Role Phone Unavailable Primary Care Provider Unavailabl e Encounter Details Date Type Department Care Team (Late st Contact Info) Description 01/10/2021 Transcribed Document [facility] [place] Family Medicine [facility] [place] [address] ProviderMacrina MD [address], [place] [id number] Social History Tobacco Use Types Packs/Day Years Used Date Smoking Tobacco: Never Assessed Sex and Gender Information Value Date Recorded Sex Assigned at Not on file Legal Sex Male 1:13 PM CDT Gender Identity Not on file Sexual Orientation Not on file documented as of this encounter Miscellaneous Notes * Cerner Conversion Note - Macrina Cordova MD - 01/10/2021 12:09 PM CDT Patient: JOSE ADORNO Age: 80 [...] 1012. 01/02/21: POD#6 Intubated and sedated on [id number]/hr and Precedex .6mcg/kg/min. He is also on [...] has a weak voice but getting stronger. Review of Systems Constitutional: Weakness. Gastrointestinal: Last bowel movement: Yesterday. Health Status Allergies: Allergic Reactions (Selected) No Known Allergies Physical Examination Intake and Output 24 hour intake: Total 1,690 ml 24 hour output: Total 1,365 ml VS/Measurements Vital Measurements 01/10/2021 10:42 EDT Heart Rate Monitored 94 bpm Oxygen Saturation 97 % Oxygen Therapy Mode Nasal cannula Oxygen Flow Rate 2 Liter/Min 01/10/2021 9:00 EDT Systolic Blood Pressure 164 mmHg HI Diastolic Blood Pressure 82 mmHg Mean Arterial Pressure (MAP)-BMDI 115 Temperature Source Bladder Temperature Mode Celsius Temperature, Celsius 37 Deg C Clinical Temperature, F 98.6 Deg F General: The pt is alert and following simple commands, he did answer some questions today. HENT: Normocephalic. Neck: Supple. Respiratory: Respirations are non-labored. Breath sounds: Rhonchi present. Cardiovascular: Normal rate, 94 beats per minute, Regular rhythm, S1, S2, No edema. Integumentary: Warm, Dry. Neurologic: Alert. Psychiatric: Cooperative. Review / Management Results review: JAN 10 04:14 140 107 H 35 / H 154 4.3 28 0.80 \ JAN 10 04:14 \ L 9.1 / H 13.5 H 424 / L 28.9 \ Blood Gases (Current Encounter/Past 24 Hours) [...] 2L/NC TF 50ml/hr Continue P.T. Transfer to [facility] Pt will need rehab when clinically ready Diagnosis Anxiety - Pre-Op Diagnosis, Medical. Cardiac [...] - Pre-Op Diagnosis, Medical. Electronically signed by Elmer, [facility] Conversion Hrbp Cerner at 11/10/2022 9:29 AM CDT documented in this encounter Plan of Treatment Not on file documented as of this encounter Visit Diagnoses Not on filedocumented in this encounter
--- OUTSIDE RECORDS SUMMARY | 2025-01-16 11:45 | XMS_ITS | Encounter Summary ---
Author Organization [facility] Address [address] [place] [address] Care Team Providers Care Shoe Coverer Name Role Phone Unavailable Primary Care Provider Unavailabl e Encounter Details Date Type Department Care Team (Late st Contact Info) Description 01/04/2021 Transcribed Document [facility] [place] Family Medicine [address] [place] [address] ProviderMacrina MD [address] [place], [place] [id number] Social History Tobacco Use Types Packs/Day Years Used Date Smoking Tobacco: Never Assessed Sex and Gender Information Value Date Recorded Sex Assigned at Not on file Legal Sex Male 1:13 PM CDT Gender Identity Not on file Sexual Orientation Not on file documented as of this encounter Miscellaneous Notes * Cerner Conversion Note - Historical ProviderMD - 01/04/2021 5:00 PM CDT Chart Check - Review Order Profile Entered On: 01/04/2021 19:33 EDT Performed On: 01/04/2021 17:00 EDT by JAMES Inman RN Chart Check Powerplans Initiated/Discontinued as Appropriate : Yes All Active Orders Reviewed : Yes JAMES Inman RN - 01/04/2021 19:33 EDT documented in this encounter Plan of Treatment Not on file documented as of this encounter Visit Diagnoses Not on filedocumented in this encounter
--- OUTSIDE RECORDS SUMMARY | 2025-01-16 11:45 | XMS_ITS | Encounter Summary ---
Author Organization [facility] Address [address] [place] [address] Care Team Providers Care Parts Room Associate Name Role Phone Unavailable Primary Care Provider Unavailabl e Encounter Details Date Type Department Care Team (Late st Contact Info) Description 12/28/2020 Transcribed Document [facility] [place] [address] [place] [address] ProviderMacrina MD [address] [place] [address] Social History Tobacco Use Types Packs/Day Years Used Date Smoking Tobacco: Never Assessed Sex and Gender Information Value Date Recorded Sex Assigned at Not on file Legal Sex Male 1:13 PM CDT Gender Identity Not on file Sexual Orientation Not on file documented as of this encounter Miscellaneous Notes * Cerner Conversion Note - Macrina ProviderMD - 12/28/2020 12:28 PM CDT Initial Discharge Planning Entered On: 12/28/2020 12:41 EDT Performed On: 12/28/2020 12:28 EDT by SOPHY RM Rn-Engineering Mgr Initial Assessment I Previously Documented Living Environment : No qualifying data available. Living Situation : Home Patient Lives With : Spouse Is the Patient a Caregiver at Home? : No Emergency Contact #1 : michaela Adorno Emergency Contact #1 Emergency Contact #1 Relationship : Emergency Contact #2 : Michaela -home phone Emergency Contact #2 Emergency Contact #2 Relationship : Enter Doctors Name : Dr. Robert Batista Does Patient have PCP Listed? : Yes Medical Durable Power of Clinical Dietetic Technician Name : None Legal Guardian : No Is Guardianship Needed : No SOPHY RM Rn-Engineering Mgr - 12/28/2020 12:28 EDT Initial Assessment II Sensory and Motor Deficits : None Current Home Treatments and Equipment : Blood pressure monitor SOPHY RM Rn-Engineering Mgr - 12/28/2020 12:28 EDT Discharge Needs I Anticipated Discharge Date : 01/03/2021 EDT Anticipated Discharge To, CM : Home with family care, Home with home health, care home facility Current Home Treatment/Equipment : Current Home Treatment/Equipment No qualifying data available. Post Acute/Home Treatments : Blood pressure monitor Documentation Status Complete : Yes SOPHY RM Rn-Engineering Mgr - 12/28/2020 12:28 EDT Discharge Needs II Professional Skilled Services : Professional Skilled Services No qualifying data available. Services and Community Resources : Outpatient Cardiac Rehab Needs Assistance with Transportation : No Discharge Options Discussed with Patient : DME, Home Health, Outpatient services, Short term rehabilitation SOPHY RM Rn-Engineering Mgr - 12/28/2020 12:28 EDT Narrative Note Narrative Note : HD#1; ELOS 3; LRR; BOOST 5; POD#1 - Elective TAVR/ Cardiac Arrest w/ emergent pericardial window for effusion and repair of L Ventricle Tear Hx Hypertension; Aortic Stenosis Intubated fi02 50/peep 5; Prop/Fent/Cardene gtt; MT's/R CT in place Unable to interview patient; spoke w/spouse Michaela/NOK/HCS by telephone; pt has no AD. 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 SOPHY RM Rn-Engineering Mgr - 12/28/2020 12:28 EDT documented in this encounter Plan of Treatment Not on file documented as of this encounter Visit Diagnoses Not on filedocumented in this encounter
--- OUTSIDE RECORDS SUMMARY | 2025-01-16 11:45 | XMS_ITS | Encounter Summary ---
Author Organization [facility] Address [address] [place] [address] Care Team Providers Care Fashion Merchandiser Name Role Phone Unavailable Primary Care Provider Unavailabl e Encounter Details Date Type Department Care Team (Late st Contact Info) Description 01/10/2021 Transcribed Document [facility] [place] [facility] [place] [address] ProviderMacrina MD [address] [place] [address] Social History Tobacco Use Types Packs/Day Years Used Date Smoking Tobacco: Never Assessed Sex and Gender Information Value Date Recorded Sex Assigned at Not on file Legal Sex Male 1:13 PM CDT Gender Identity Not on file Sexual Orientation Not on file documented as of this encounter Miscellaneous Notes * Cerner Conversion Note - Macrina Cordova MD - 01/10/2021 1:22 PM CDT Patient: JOSE ADORNO Age: 80 [...] 0.5 MCG/KG/. 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 MRI brain yesterday revealed [...] 180s. 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 ICU day: 15 Vent day: 5, extubated 12/31/20 Reintubated 01/01/21, extubated 01/05 PICC Intake & Output Totals Last 24 Hours (7a-7a) Intake (45 Events) Continuous Infusions (26.25 mL) Medications (324 mL) Enteral Feeding Amount (1200 mL) Tube Flush (140 mL) Output (8 Events) Spence Catheter (1365 mL) Input Total: 1690.25 mL Output Total: 1365 mL Balance: 325.25 mL Review of Systems Constitutional: Weakness, Fatigue. Eye: Negative. Ear/Nose/Mouth/Throat: Negative. Respiratory: No shortness of breath, No cough, No sputum production. Cardiovascular: denies chest pain. Gastrointestinal: Negative. Musculoskeletal: generalized discomfort. Integumentary: Negative. [...] (See Comment) Pepcid: 20 mg, Oral, Daily SEROquel: 12.5 mg, Oral, At Bedtime, [...] At Bedtime bumetanide: 0.5 mg, IV Push, Daily clopidogrel: 75 mg, Oral, Daily docusate sodium: 100 mg, Oral, BID, PRN: Constipation gabapentin: 300 mg, Oral, Daily gabapentin: 600 mg, Oral, At Bedtime hydrALAZINE: 10 mg, IV Push, Q6H, PRN: Hypertension insulin regular 50 kg - 75 k kg - 75 kg scale, SubCutaneous, Q6H lisinopril: 10 mg, Oral, Daily melatonin: 3 mg, Oral, At Bedtime oxyCODONE: [...] Tab, 0 Refill(s), Medications (38) Active Scheduled: (18) #NaCl 0.9% *FLUSH* inj [...] tab 10 mg 1 Tab, Oral, Daily melatonin 3 mg tab 3 mg 1 Tab, Oral, At Bedtime metoprolol tartrate 50 mg tab 50 mg 1 Tab, Oral, BID Continuous: (0) PRN: (20) #NaCl 0.9% *FLUSH* inj 10 [...] Problems Aortic valve stenosis / SNOMED CT 749792076 / Confirmed Arthritis of right knee / SNOMED CT 6805998634 / Confirmed At risk for sleep apnea / IMO 29224449 / Confirmed At risk for violence / IMO 28880066 / Confirmed Chronic anxiety / SNOMED CT 963538139 / Confirmed Back pain, chronic / SNOMED CT 774158965 / Confirmed Colorectal surgery / SNOMED CT 5452170303 / Confirmed Disorder of prostate / SNOMED CT 21887330 / Confirmed GERD - Gastro-esophageal reflux disease / SNOMED CT 1378227039 / Confirmed H/O peripheral neuropathy / SNOMED CT 879188562 / Confirmed feet tingle all the time HTN - Hypertension / SNOMED CT 1506474452 / Confirmed Hyperlipidemia / SNOMED CT 19485416 / Confirmed Hypertension / SNOMED CT 92984139 / Confirmed Aortic stenosis, severe / SNOMED CT 8074945613 / Confirmed Resolved: Cancer of colon / SNOMED CT 4200208218, Active Problems (14) Aortic stenosis, severe Aortic [...] H 108 (JAN 09 16:06) Mon HR 100 (JAN 10 12:00) 90 (JAN 10 07:00) 113 (DEC 16 14:00) Resp Rate 20 (JAN 10 12:00) 15 (JAN 10 03:00) H 34 (JAN 10 06:00) SBP H 161 (JAN 10 12:00) 102 (JAN 10 01:00) H 164 (JAN 10 09:00) DBP H 98 (JAN 10 12:00) L 55 (JAN 09 18:00) H 98 (JAN 10 12:00) MAP 121 (JAN 10 12:00) 72 (JAN 09 17:00) 121 (JAN 10 12:00) SpO2 97 (JAN 10 12:00) L 91 (JAN 09 22:00) 98 (JAN 10 08:47) Intake & Output Totals Last 24 Hours (7a-7a) Intake (45 Events) Continuous Infusions (26.25 mL) Medications (324 mL) Enteral Feeding Amount (1200 mL) Tube Flush (140 mL) Output (8 Events) Spence Catheter (1365 mL) Input Total: 1690.25 mL Output Total: 1365 mL Balance: 325.25 mL General: frail, elderly . Eye: Pupils are equal, [...] Labs (Last four charted values) WBC H 13.5 (CESAR 17) H 14.4 (CESAR 16) H 16.3 (CESAR 15) H 15.3 (CESAR 14) HB L 9.1 (CESAR 17) L 8.9 (CESAR 16) L 10.0 (CESAR 15) L 9.4 (CESAR 14) HCT L 28.9 (CESAR 17) L 28.0 (CESAR 16) L 30.7 (CESAR 15) L 29.7 (CESAR 14) Plt H 424 (CESAR 17) H 439 (CESAR 16) H 410 (CESAR 15) 310 (CESAR 14) Na 140 (CESAR 17) 139 (CESAR 16) 139 (CESAR 15) 140 (CESAR 14) K 4.3 (CESAR 17) 4.0 (CESAR 16) 3.8 (CESAR 15) 4.0 (CESAR 14) Cl 107 (CESAR 17) 106 (CESAR 16) 102 (CESAR 15) 107 (CESAR 14) CO2 28 (CESAR 17) 30 (CESAR 16) 30 (CESAR 15) 31 (CESAR 14) BUN H 35 (CESAR 17) H 38 (CESAR 16) H 31 (CESAR 15) H 24 (CESAR 14) Cr 0.80 (CESAR 17) 0.90 (CESAR 16) 0.80 (CESAR 15) 0.70 (CESAR 14) Glu R H 154 (CESAR 17) H 137 (CESAR 16) H 147 (CESAR 15) H 145 (CESAR 14) Ca 8.7 (CESAR 17) L 8.1 (CESAR 16) 8.8 (CESAR 15) 8.5 (CESAR 14) Lactic 1.3 (CESAR 15) 1.0 (CESAR 13) 1.2 (CESAR 07) 1.4 (CESAR 06) PT 11.4 (CESAR 04) H 17.4 (CESAR 03) H 14.3 (CESAR 03) H 18.7 (CESAR 03) INR 1.1 (CESAR 04) H 1.7 (CESAR 03) H 1.4 (CESAR 03) H 1.8 (CESAR 03) PTT 27.8 (CESAR 05) H 62.4 (CESAR 03) H 37.3 (CESAR 03) H 55.9 (CESAR 03) AST H 45 (CESAR 17) H 49 (CESAR 16) H 40 (CESAR 15) 35 (CESAR 14) ALT 49 (CESAR 17) 47 (CESAR 16) 48 (CESAR 15) 40 (CESAR 14) ALK P 119 (CESAR 17) 109 (CESAR 16) 109 (CESAR 15) 92 (CESAR 14) T Bili H 1.3 (CESAR 17) 1.2 (CESAR 16) H 1.4 (CESAR 15) H 1.3 (CESAR 14) PTN 6.5 (CESAR 17) L 6.2 (CSEAR 16) 6.8 (CESAR 15) L 6.1 (CESAR 14) ALB L 2.5 (CESAR 17) L 2.4 (CESAR 16) L 2.7 (CESAR 15) L 2.4 (CESAR 14) Troponin <0.015 (CESAR 01) . Blood Gases (Current Encounter/Past 24 Hours) No Blood Gas Results Found (Past 24 Hours) DEC 17 04:14 140 107 H 35 / H 154 4.3 28 0.80 \ CESAR 17 04:14 \ L 9.1 / H 13.5 H 424 / L 28.9 \ Blood Gases (Current Encounter/Past 24 Hours) No Blood Gas Results Found (Past 24 Hours) Radiology Results (Last 48 hours) [id number] -- 12/27/2020 06:39 CR Chest 1 Vw Portable (01/09/2021 05:39) [...] transcribed report. CR Chest 1 Vw Portable (01/10/2021 05:46) Result: PORTABLE CHEST 01/10/2021 4:00 AM HISTORY: Pleural effusion.COMPARISON: Previous day .FINDINGS: The heart is stable in size. There has been interval worseningin the right perihilar opacity. There is no pneumothorax . The supportdevices are in good position . Status post median sternotomy.IMPRESSION: Interval worsening as above. Continued follow up recommended . Images reviewed, interpreted, and dictated by Dr. Brayan [...] MRI brain: multiple bilateral acute infarcts PLAN: -Extubated on 01/05/21 -BIPAP PRN for increased WOB and HS -Supplemental O2 to maintain O2 saturations 92-96% currently on 2L NC -Duonebs Q6H -Mucinex 200mg Q6H -Encourage IS and FVD and activity -Cardiology following -Monitor need for continued diuresis- today, continue current Bumex dosing and reeval daily -Hemodynamics: Meds being adjusted again today given nocturnal hypotension -Lisinopril 20mg BID change to daily and metoprolol 50mg Q6H, hydralazine 10mg Q6H PRN -CTS following -Neurology following -Antibiotics: Zosyn for total of 8-10 days, Klebsiella PNA, stopped Zosyn and switched to Cefepime, continue -TF per dietary at rate of 50ml/ hr, speech following -Prophylaxis: Protonix, SCDs -Anticoagulation per CTS- as discussed in multidisciplinary rounds ok'd per CTS and lovenox will be started -CXR and labs in AM -Continue activity and pulmonary toilet, both encouraged. -PT/OT following -Pt continues to improve, wbc trending down. cxr stable, on 2L oxygen. Ok from pulmonary standpoint to be transfered to step down, 3E. FULL CODE Prognosis - Guarded. I have [...]
--- OUTSIDE RECORDS SUMMARY | 2025-01-16 11:45 | XMS_ITS | Encounter Summary ---
Author Organization [facility] Address [address] [place] [address] Care Team Providers Care Clinic Office Manager Name Role Phone Unavailable Primary Care Provider Unavailabl e Encounter Details Date Type Department Care Team (Late st Contact Info) Description 01/15/2021 Transcribed Document [facility] [place] Family Medicine [address] [place] [address] ProviderMacrina MD [address] [place] [address] Social History Tobacco Use Types Packs/Day Years Used Date Smoking Tobacco: Never Assessed Sex and Gender Information Value Date Recorded Sex Assigned at Not on file Legal Sex Male 1:13 PM CDT Gender Identity Not on file Sexual Orientation Not on file documented as of this encounter Miscellaneous Notes * Cerner Conversion Note - Macrina ProviderMD - 01/15/2021 3:00 AM CDT Nutrition Assessment Entered On: 01/15/2021 13:27 EDT Performed On: 01/15/2021 13:27 EDT by Alexa Dukes Dietitian Nutrition Assessment Nutrition Assessment Reason : Follow Up Alexa Dukes Dietitian - 01/15/2021 13:27 EDT Current Nutrition Regimen Comment : 01/15: High f/up. Plan to repeat MBS tomorrow. General surgery consulted for PEG placement if unable to pass MBS. RN reports pt is tolerating well w/ no issues. Plan for pt to d/c to [facility]. 01/11: High TF f/up. On supplemental O2. Pt failed FEES yesterday; PEG may need to be considered d/t pt not managing his own secretions. TF running @ goal; RN reports tolerating well but no BM x 3 days. Will give stool softener prn. Note pt previously rec'ing bowel regimen and w/ diarrhea. 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, cardiogenic shock, acute blood loss anemia, metabolic acidosis PMH: severe , nonischemic cardiomyopathy, HTN, colon resection, inguinal hernia repair, herman Labs: Na 133, Cl 100, BUN 35, FSBG 141/91/95, WBC 11.2, PLT 535 Meds: asa, statin, bumex, Pepcid, regular insulin, MMW, NS, pain prn GI: LBM 01/13, +BS, +corpak (2nd portion of duodenum) Skin: chest incisions; UE/LE edema Diet: NPO TF: Osmolite 1.5 @ 50ml/hr + 1 proteinex Ht: 68 Wt: 65.14kg/143# (admit), 77.3kg (12/28), 74.2kg (01/01), no new wt (01/04), 73.1kg (01/06), 62.8 kg (01/11)*more c/w admit wt, no new wt (01/15) Wt hx: 141# (11/15/19), 146# (12/03/20) BMI: 22 IBW: 70kg (93% IBW) Est needs (reassessed 01/15): 1600-1800kcal (25-28kcal/kg/MSJx1.2) 78g PRO (1.2g/kg) Alexa Dueks Dietitian - 01/15/2021 14:00 EDT Nutrition Diagnoses Oral or Nutrition Support Intake : Inadequate oral intake Oral or Nutr Support Intake Related To : dysphagia Oral or Nutr Support Intake Evidenced by : NPO; need for EN Oral or Nutrition Support Intake Status : Active Alexa Dukes Dietitian - 01/15/2021 14:00 EDT Nutrition Interventions Enteral/Parenteral Nutrition : Continue current enteral nutrition regimen Alexa Dukes Dietitian - 01/15/2021 14:00 EDT Monitoring/Evaluation Energy Intake : Total energy intake Food Intake : Amount of food Protein Intake : Total protein Weight Status : Weight Maintanence Gastrointestinal Function : Bowel Function Alexa Dukes Dietitian - 01/15/2021 14:00 EDT Nutrition Recommendations Dietitian Recommendations : 1. Continue Osmolite 1.5 @ 50ml/hr. RD to d/c now that pt is on floor (provides 1650 kcal, 68g PRO). FW per MD. Goal: meet est needs 2. Monitor elytes and replace prn Goal: wnls 3. Obtain wt 2x weekly. Noted fluctuations. goal: avoid sig wt changes 4. Monitor bowel fxn. Administer bowel regimen prn goal: normal BMs Risk: High Nutrition Care Level : High Alexa Dukes, Dietitian - 01/15/2021 14:00 EDT documented in this encounter Plan of Treatment Not on file documented as of this encounter Visit Diagnoses Not on filedocumented in this encounter
--- OUTSIDE RECORDS SUMMARY | 2025-01-16 11:45 | XMS_ITS | Encounter Summary ---
Author Organization [facility] Address [address] [place] [address] Care Team Providers Care Welder Assistant Name Role Phone Unavailable Primary Care Provider Unavailabl e Encounter Details Date Type Department Care Team (Late st Contact Info) Description 01/17/2021 Transcribed Document [facility] [place] [address] [place] [address] ProviderMacrina MD [address] [place] [address] Social History Tobacco Use Types Packs/Day Years Used Date Smoking Tobacco: Never Assessed Sex and Gender Information Value Date Recorded Sex Assigned at Not on file Legal Sex Male 1:13 PM CDT Gender Identity Not on file Sexual Orientation Not on file documented as of this encounter Miscellaneous Notes * Cerner Conversion Note - Macrina ProviderMD - 01/17/2021 3:30 PM CDT [facility] Main OR Preop Summary Primary Physician: PEYTON BEATTY MD Finalized Date/Time: 01/17/21 11:00:37 Pt. Name: HUONG JOSE L /Sex: 1940 Male Med Rec #: [id number] Physician: DANYELLE WALTERS MD-[facility] Financial #: [id number] Pt. Type: I Room/Bed: 317/1 Admit/Disch: 12/27/20 06:39:00 - Institution: [facility] PreOp Case Times Entry 1 In Preop 01/17/21 10:32:00 Ready for Holding n/a Room Patient Ready for 01/17/21 10:58:00 Surgery Patient Out of Preop 01/17/21 10:59:00 Patient Out of n/a Holding Room Last Modified By: Mariana Walsh, SHYAM 01/17/21 10:59:54 Finalized By: Mariana Walsh RN Document Signatures Signed By: Mariana Walsh RN 01/17/21 11:00 Electronically signed by [facility] Conversion Concrete Pouring Supervisor Cerner at 11/10/2022 9:16 AM CDT documented in this encounter Plan of Treatment Not on file documented as of this encounter Visit Diagnoses Not on filedocumented in this encounter
--- OUTSIDE RECORDS SUMMARY | 2025-01-16 11:45 | XMS_ITS | Encounter Summary ---
Author Organization [facility] Address [address] [place] [address] Care Team Providers Care Household Appliance Repairer Name Role Phone Unavailable Primary Care Provider Unavailabl e Encounter Details Date Type Department Care Team (Late st Contact Info) Description 12/28/2020 Transcribed Document [facility] [place] Family Medicine [address] [place] [address] ProviderMacrina MD [address] [place], [place] [address] Social History Tobacco Use Types Packs/Day Years Used Date Smoking Tobacco: Never Assessed Sex and Gender Information Value Date Recorded Sex Assigned at Not on file Legal Sex Male 1:13 PM CDT Gender Identity Not on file Sexual Orientation Not on file documented as of this encounter Miscellaneous Notes * Cerner Conversion Note - Historical ProviderMD - 12/28/2020 5:00 AM CDT Chart Check - Review Order Profile Entered On: 12/28/2020 4:29 EDT Performed On: 12/28/2020 5:00 EDT by Belem Lawson RN Chart Check Powerplans Initiated/Discontinued as Appropriate : Yes All Active Orders Reviewed : Yes Belem Lawson RN - 12/28/2020 4:28 EDT documented in this encounter Plan of Treatment Not on file documented as of this encounter Visit Diagnoses Not on filedocumented in this encounter
--- OUTSIDE RECORDS SUMMARY | 2025-01-16 11:45 | XMS_ITS | Encounter Summary ---
Author Organization [employer] [facility] Address [address] [place] [address] Care Team Providers Care Rotary Drill Operator Name Role Phone Unavailable Primary Care Provider Unavailabl e Encounter Details Date Type Department Care Team (Late st Contact Info) Description 01/11/2021 Transcribed Document [facility] [place] Family Medicine [address] [place] [address] ProviderMacrina MD [address] [place] [address] Social History Tobacco Use Types Packs/Day Years Used Date Smoking Tobacco: Never Assessed Sex and Gender Information Value Date Recorded Sex Assigned at Not on file Legal Sex Male 1:13 PM CDT Gender Identity Not on file Sexual Orientation Not on file documented as of this encounter Miscellaneous Notes * Cerner Conversion Note - Historical ProviderMD - 01/11/2021 3:00 AM CDT Nutrition Assessment Entered On: 01/11/2021 12:03 EDT Performed On: 01/11/2021 12:00 EDT by Alexa Dukes Dietitian Nutrition Assessment Nutrition Assessment Reason : Follow Up Current Nutrition Regimen Comment : 01/11: High TF f/up. On supplemental O2. Pt failed FEES yesterday; PEG may need to be considered d/t pt not managing his own secretions. TF running @ goal; RN reports tolerating well but no BM x 3 days. Will give stool softener prn. Note pt previously rec'ing bowel regimen and w/ diarrhea. 01/08: high f/up. Per EP TECH notes, pt not ready for instrumental. TF running @ 50ml/hr with proteinex and tolerating well per RN. Now having BM's on bowel regimen. 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, cardiogenic shock, acute blood loss anemia, metabolic acidosis PMH: severe , nonischemic cardiomyopathy, HTN, colon resection, inguinal hernia repair, herman Labs: Glu 145, BUN 33, Alb 2.6, FSBG 148/134/147, WBC 135, PLT 415 Meds: statin, bumex, Pepcid, SSI, abx, pain prn GI: LBM 01/08, +BS, +corpak (2nd portion of duodenum) Skin: chest incisions; UE/LE edema Diet: NPO TF: Osmolite 1.5 @ 50ml/hr + 1 proteinex Ht: 68 Wt: 65.14kg/143# (admit), 77.3kg (12/28), 74.2kg (01/01), no new wt (01/04), 73.1kg (01/06), 62.8 kg (01/11)*more c/w admit wt Wt hx: 141# (11/15/19), 146# (12/03/20) BMI: 22 IBW: 70kg (93% IBW) Est needs: 1600-1800kcal (25-28kcal/kg) 78g PRO (1.2g/kg) Alexa Dukes Dietitian - 01/11/2021 12:00 EDT Nutrition Diagnoses Oral or Nutrition Support Intake : Inadequate oral intake Oral or Nutr Support Intake Related To : dysphagia Oral or Nutr Support Intake Evidenced by : NPO; need for EN Oral or Nutrition Support Intake Status : Active Alexa Dukes Dietitian - 01/11/2021 12:00 EDT Nutrition Interventions Enteral/Parenteral Nutrition : Continue current enteral nutrition regimen Alexa Dukes Dietitian - 01/11/2021 12:00 EDT Monitoring/Evaluation Energy Intake : Total energy intake Enteral Nutrition Intake : Formula/Solution, Feeding tube flush, Tube Feeding Tolerance Weight Status : Weight Maintanence Gastrointestinal Function : Bowel Function Alexa Dukes Dietitian - 01/11/2021 12:00 EDT Nutrition Recommendations Dietitian Recommendations : 1. Continue Osmolite 1.5 @ 50ml/hr + 1 [id number] daily (provides 1710kcal, 83g PRO). FW per MD. Goal: meet est needs 2. Monitor elytes and replace prn Goal: wnls 3. Obtain wt 2x weekly. Noted fluctuations. goal: avoid sig wt changes 4. Monitor bowel fxn. Administer bowel regimen prn - LBM 01/08. goal: normal BMs Risk: High Nutrition Care Level : High Alexa Dukes Dietitian - 01/11/2021 12:00 EDT documented in this encounter Plan of Treatment Not on file documented as of this encounter Visit Diagnoses Not on filedocumented in this encounter
--- OUTSIDE RECORDS SUMMARY | 2025-01-16 11:45 | XMS_ITS | Encounter Summary ---
Author Organization [email or web address] Address [address] [place] [address] Care Team Providers Care Baling Machine Operator Name Role Phone Unavailable Primary Care Provider Unavailabl e Encounter Details Date Type Department Care Team (Late st Contact Info) Description 01/06/2021 Transcribed Document [facility] Cardiology [address] [place] [address] Danyelle Gomez MD [address] [facility] [address] [place] [id number] Social History Tobacco Use Types Packs/Day Years Used Date Smoking Tobacco: Never Assessed Sex and Gender Information Value Date Recorded Sex Assigned at Not on file Legal Sex Male 1:13 PM CDT Gender Identity Not on file Sexual Orientation Not on file documented as of this encounter Miscellaneous Notes * Cerner Conversion Note - Danyelle Gomez MD - 01/06/2021 11:19 AM EDT Patient: JOSE ADORNO Age: 80 years Sex: Male : 1940 Associated Diagnoses: None Author: DANYELLE GOMEZ MD-CAR Basic Information PCP: Robert Batista MD Primary Surgical Aide: Danyelle Gomez MD Subjective Patient feeling better today. Extubated 01/05/21 Health Status Allergies: Allergic Reactions (Selected) No [...] Medical Aortic valve stenosis / SNOMED CT 847839879 / Confirmed At risk for sleep apnea / IMO 35359356 / Confirmed Colorectal surgery / SNOMED CT 3521936149 / Confirmed HTN - Hypertension / SNOMED CT 9101281931 / Confirmed, Active Problems (13) Aortic stenosis, severe Aortic valve stenosis Arthritis of right knee At risk for sleep apnea Back pain, chronic Chronic anxiety Colorectal surgery Disorder of prostate GERD - Gastro-esophageal reflux disease H/O peripheral neuropathy HTN - Hypertension Hyperlipidemia Hypertension Objective Intake and Output 24 hour intake: Total 2,315 ml 24 hour output: Total 3,155 ml VS/Measurements Measurements from flowsheet : Measurements 01/06/2021 4:00 EDT Routine Weight Source Bed scale Routine Weight Entry Format Metric Routine Weight, Kilograms 73.1 kg Routine Weight Calculation 73.1 kg 01/05/2021 6:16 EDT Routine Weight Source Bed scale Routine Weight Entry Format Metric Routine Weight, Kilograms 74.9 kg Routine Weight Calculation 74.9 kg , Vitals Signs (last 24 hrs) Last Charted Minimum Maximum Apical HR 100 (JAN 06 09:41) L 10 (JAN 06 01:09) 100 (JAN 06 09:41) Mon HR 86 (JAN 06 10:00) 74 (JAN 05 11:00) 108 (JAN 05 18:00) Resp Rate 14 (JAN 06 10:00) L 12 (JAN 06 09:00) H 33 (JAN 06 06:00) SBP H 152 (JAN 06 10:00) 125 (JAN 05 13:00) H 169 (JAN 06 01:00) DBP 73 (JAN 06 10:00) 63 (JAN 06 02:00) 79 (JAN 05 14:00) MAP 105 (JAN 06 10:00) 88 (JAN 05 13:00) 114 (JAN 05 14:00) SpO2 100 (JAN 06 10:00) 94 (JAN 06 05:30) 100 (JAN 05 11:00) General: Alert and oriented, No acute distress. Eye: Normal conjunctiva. HENT: Normocephalic. Respiratory: Symmetrical chest wall expansion. Breath sounds: Bilateral, Rhonchi present. Cardiovascular: Normal rate, Regular rhythm, Good pulses equal in all extremities. Gastrointestinal: Soft, Non-distended, Normal bowel sounds. Genitourinary: indwelling rocha catheter. Musculoskeletal: No deformity. Integumentary: Warm, Dry. Neurologic: Alert, Oriented. Psychiatric: Cooperative, Appropriate mood & affect. Results Review JAN 06 04:30 138 106 22 / H 119 3.8 28 L 0.60 \ JAN 06 04:30 \ L 9.2 / H 15.8 253 / L 28.1 \ Cardiac Markers (Current Encounter/Past 24 Hours) ProBNP 3753 pg/mL NV 01/06/2021 05:22 Radiology Results (Last 48 hours) [id number] -- 12/27/2020 06:39 CT Chest WO (01/04/2021 18:36) Result: CT [...] dependent pleural effusions. Small on theleft and maatn-zi-[id number] on the right side. These are associated [...] CT-GUIDED THORACENTESISHISTORY: Pleural effusion.ATTENDING PHYSICIAN: Dr. Youssef DROSSER: ANAYA CantorCTECHNIQUE: Informed consent was obtained from [...] interpreted, and dictated by Bebeto Avelar MD TAVR 12/27/2020 PROCEDURES PERFORMED: 1. Transcatheter aortic [...] s/p pericardiocentesis and surgical repair of LV [place]. PEA Arrest; CODE called 10 minutes to ROSC Mediastinal hemorrhage/Cardiac tamponade s/p emergent sternotomy; repair of left ventricular teat 12/27/2020 - Mechanical vent placed during surgery acute blood loss anemia s/p Transfusions: 4 units of PRBCs, cryoprecipitate, platelets, and FFP Hypertension Nonischemic cardiomyopathy Neurologic changes; CVA CT - no acute changes. MRI - Multiple acute infarcts PLAN; 01/06/2021 Extubated luckily and appears to be [...]
--- OUTSIDE RECORDS SUMMARY | 2025-01-16 11:45 | XMS_ITS | Encounter Summary ---
Author Organization [facility] [employer] Address [address] [place] [address] Care Team Providers Care Mixed Animal Veterinarian Name Role Phone Unavailable Primary Care Provider Unavailabl e Encounter Details Date Type Department Care Team (Late st Contact Info) Description 01/10/2021 Transcribed Document [facility] Family Medicine [facility] [place] [address] ProviderMacrina MD [address] [place] [address] Social History Tobacco Use Types Packs/Day Years Used Date Smoking Tobacco: Never Assessed Sex and Gender Information Value Date Recorded Sex Assigned at Not on file Legal Sex Male 1:13 PM CDT Gender Identity Not on file Sexual Orientation Not on file documented as of this encounter Miscellaneous Notes * Cerner Conversion Note - Macrina Cordova MD - 01/10/2021 12:37 PM CDT DATE OF SERVICE: 12/27/2020 PROCEDURE: Transesophageal echocardiogram, intraoperative. CLINICAL INDICATION: Emergent pericardial window for pericardial effusion. DESCRIPTION OF PROCEDURE: The procedure was carried out in the operating room with the patient under general anesthesia. This was a brief abbreviated exam secondary to emergent nature. After the patient was asleep, echo probe was inserted without any issues. Noted to be a moderate amount of pericardial effusion. The surgeon had already drained off approximately 250 to 300 mL of fluid. After evacuation of the pericardial effusion, only a small remnant of less than half a centimeter remained in the posterior side. Function of the heart returned to normal. The ejection fraction was normal at approximately 55%. IMPRESSION: 1. Pericardial effusion. 2. Good left ventricular function, status post pericardial window drainage. These findings were discussed with the surgeon. /[id number] MD HE Lomas/AQ / KB / MODL /[id number] Electronically signed by Elmer, [facility] Conversion Configuration Technician Cerner at 11/10/2022 9:31 AM CDT documented in this encounter Plan of Treatment Not on file documented as of this encounter Visit Diagnoses Not on filedocumented in this encounter
--- OUTSIDE RECORDS SUMMARY | 2025-01-16 11:45 | XMS_ITS | Encounter Summary ---
Author Organization [facility] Address [address] [place] [address] Care Team Providers Care Visual Basic Developer Name Role Phone Unavailable Primary Care Provider Unavailabl e Encounter Details Date Type Department Care Team (Late st Contact Info) Description 01/11/2021 Transcribed Document [facility] [place] [facility] [place] [address] ProviderMacrina MD [address] [place] [address] Social History Tobacco Use Types Packs/Day Years Used Date Smoking Tobacco: Never Assessed Sex and Gender Information Value Date Recorded Sex Assigned at Not on file Legal Sex Male 1:13 PM CDT Gender Identity Not on file Sexual Orientation Not on file documented as of this encounter Miscellaneous Notes * Cerner Conversion Note - Macrina Cordova MD - 01/11/2021 1:38 PM CDT Patient: JOSE ADORNO Age: 80 [...] epinephrine, bicarb, and calcium. He was on Aptricio and Vaso at that time. ROSC was [...] 0.5 MCG/KG/. Awake and following commands, positive circuit breaker assembler in bilateral hands. MRI brain yesterday revealed [...] 180s. 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 WBC 13.5, low grade fever 99.3 ICU day: 16 Vent day: 5, extubated 12/31/20 Reintubated 01/01/21, extubated 01/05 PICC Intake & Output Totals Last 24 Hours (7a-7a) Intake (39 Events) Medications (272 mL) Enteral Feeding Amount (1150 mL) Tube Flush (70 mL) Output (12 Events) Spence Catheter (1625 mL) Input Total: 1492 mL Output Total: 1625 mL Balance: -133 mL Review of Systems Constitutional: Weakness, Fatigue. [...] Problems Aortic valve stenosis / SNOMED CT 288405294 / Confirmed Arthritis of right knee / SNOMED CT 5063813049 / Confirmed At risk for sleep apnea / IMO 30403935 / Confirmed At risk for violence / IMO 83393191 / Confirmed Chronic anxiety / SNOMED CT 169946922 / Confirmed Back pain, chronic / SNOMED CT 124375596 / Confirmed Colorectal surgery / SNOMED CT 6185210612 / Confirmed Disorder of prostate / SNOMED CT 01077148 / Confirmed GERD - Gastro-esophageal reflux disease / SNOMED CT 1579220849 / Confirmed H/O peripheral neuropathy / SNOMED CT 042200877 / Confirmed feet tingle all the time HTN - Hypertension / SNOMED CT 8337724378 / Confirmed Hyperlipidemia / SNOMED CT 21172183 / Confirmed Hypertension / SNOMED CT 25488567 / Confirmed Aortic stenosis, severe / SNOMED CT 8648864217 / Confirmed Resolved: Cancer of colon / SNOMED CT 1855796303, Active Problems (14) Aortic stenosis, severe Aortic valve stenosis Arthritis of right knee At risk for sleep apnea At risk for violence Back pain, chronic Chronic anxiety Colorectal surgery Disorder of prostate GERD - Gastro-esophageal reflux disease H/O peripheral neuropathy HTN - Hypertension Hyperlipidemia Hypertension Physical Examination VS/Measurements Vitals Signs (last 24 hrs) Last Charted Minimum Maximum Apical HR H 108 (DEC 18 08:33) H 105 (DEC 17 21:41) H 108 (DEC 18 08:33) Mon HR 102 (DEC 18 11:38) 91 (DEC 17 23:00) 110 (DEC 18 03:00) Resp Rate H 28 (DEC 18 11:38) L 13 (JAN 10 17:00) H 36 (JAN 10 18:00) SBP H 145 (DEC 18 07:00) 92 (DEC 17 22:00) H 174 (JAN 11 03:00) DBP 67 (JAN 11 07:00) L 50 (JAN 10 22:00) 83 (JAN 10 15:00) MAP 97 (JAN 11 07:00) 62 (JAN 10 22:00) 119 (JAN 10 17:00) SpO2 95 (DEC 18 11:38) L 90 (DEC 18 04:00) 99 (DEC 17 15:36) Intake & Output Totals Last 24 Hours (7a-7a) Intake (39 Events) Medications (272 mL) Enteral Feeding Amount (1150 mL) Tube Flush (70 mL) Output (12 Events) Spence Catheter (1625 mL) Input Total: 1492 mL Output Total: 1625 mL Balance: -133 mL General: Mild distress, frail, elderly , Alert and following [...] (Last four charted values) WBC H 13.5 (DEC 18) H 13.5 (DEC 17) H 14.4 (CESAR 16) H 16.3 (CESAR 15) HB L 8.9 (CESAR 18) L 9.1 (CESAR 17) L 8.9 (CESAR 16) L 10.0 (CESAR 15) HCT L 28.3 (CESAR 18) L 28.9 (CESAR 17) L 28.0 (CESAR 16) L 30.7 (CESAR 15) Plt H 415 (CESAR 18) H 424 (CESAR 17) H 439 (CESAR 16) H 410 (CESAR 15) Na 139 (CESAR 18) 140 (CESAR 17) 139 (CESAR 16) 139 (CESAR 15) K 4.5 (CESAR 18) 4.3 (CESAR 17) 4.0 (CESAR 16) 3.8 (CESAR 15) Cl 107 (CESAR 18) 107 (CESAR 17) 106 (CESAR 16) 102 (CESAR 15) CO2 29 (CESAR 18) 28 (CESAR 17) 30 (CESAR 16) 30 (CESAR 15) BUN H 33 (CESAR 18) H 35 (CESAR 17) H 38 (CESAR 16) H 31 (CESAR 15) Cr 0.70 (CESAR 18) 0.80 (CESAR 17) 0.90 (CESAR 16) 0.80 (CESAR 15) Glu R H 145 (CESAR 18) H 154 (CESAR 17) H 137 (CESAR 16) H 147 (CESAR 15) Ca 8.4 (CESAR 18) 8.7 (CESAR 17) L 8.1 (CESAR 16) 8.8 (CESAR 15) Lactic 1.3 (CESAR 15) 1.0 (CESAR 13) 1.2 (CESAR 07) 1.4 (CESAR 06) PT 11.4 (CESAR 04) H 17.4 (CESAR 03) H 14.3 (CESAR 03) H 18.7 (CESAR 03) INR 1.1 (CESAR 04) H 1.7 (CESAR 03) H 1.4 (CESAR 03) H 1.8 (CESAR 03) PTT 27.8 (CESAR 05) H 62.4 (CESAR 03) H 37.3 (CESAR 03) H 55.9 (CESAR 03) AST H 49 (CESAR 18) H 45 (CESAR 17) H 49 (CESAR 16) H 40 (CESAR 15) ALT 54 (CESAR 18) 49 (CESAR 17) 47 (CESAR 16) 48 (CESAR 15) ALK P 124 (CESAR 18) 119 (CESAR 17) 109 (CESAR 16) 109 (CESAR 15) T Bili 1.0 (CESAR 18) H 1.3 (CESAR 17) 1.2 (CESAR 16) H 1.4 (CESAR 15) PTN 6.7 (CESAR 18) 6.5 (CESAR 17) L 6.2 (CESAR 16) 6.8 (CESAR 15) ALB L 2.6 (CESAR 18) L 2.5 (CESAR 17) L 2.4 (CESAR 16) L 2.7 (CESAR 15) Troponin <0.015 (CESAR 01) . Blood Gases (Current Encounter/Past 24 Hours) No Blood Gas Results Found (Past 24 Hours) CESAR 18 04:57 139 107 H 33 / H 145 4.5 29 0.70 \ CESAR 18 04:57 \ L 8.9 / H 13.5 H 415 / L 28.3 \ Blood Gases (Current Encounter/Past 24 Hours) No Blood Gas Results Found (Past 24 Hours) Radiology Results (Last 48 hours) [id number] -- 12/27/2020 06:39 CR Chest 1 Vw Portable (01/10/2021 05:46) [...] transcribed report. CR Chest 1 Vw Portable (01/11/2021 04:23) [...] by Dr. Christiano Gurrola.Transcribed by Jo Lowe (R)Darrell (R).I have personally viewed, interpreted and dictated [...] Q6H -Encourage IS and FVD and activity -Hemodynamics: Meds being adjusted again today given nocturnal hypotension -Cardiology following -Lisinopril 5mg BID started, Metioprolol 50mg BID, Hydralazine prn -Monitor need for continued diuresis- today, continue Bumex 0.5mg BID(increased to bid today) -CTS following -Neurology following -Antibiotics: -Cefepime--continue for [...] oxygen. Ok from pulmonary standpoint to be transferred to step down, 3E. FULL CODE Prognosis [...]
--- OUTSIDE RECORDS SUMMARY | 2025-01-16 11:45 | XMS_ITS | Encounter Summary ---
Author Organization [employer] Address [address] [place] [address] Care Team Providers Care Commissary Helper Name Role Phone Unavailable Primary Care Provider Unavailabl e Encounter Details Date Type Department Care Team (Late st Contact Info) Description 01/04/2021 Transcribed Document [address] [address] Abby Rodrigues MD [address] [place] [address] Social History Tobacco Use Types Packs/Day Years Used Date Smoking Tobacco: Never Assessed Sex and Gender Information Value Date Recorded Sex Assigned at Not on file Legal Sex Male 1:13 PM CDT Gender Identity Not on file Sexual Orientation Not on file documented as of this encounter Miscellaneous Notes * Cerner Conversion Note - Abby Rodrigues MD - 01/04/2021 9:44 AM EDT Patient: JOSE ADORNO Age: 80 years Sex: Male : 1940 Associated Diagnoses: None Author: ABBY RODRIGUES MD-CAR Basic Information PCP: Robert Batista MD Primary Motor Vehicle Salesperson: Arthur Gomez MD Subjective Patient seen and examined at the bedside. Sedated. Intubated. Today he is more awake and follows commands. Denies any pain. Moves all the 4 limbs upon command. Health Status Current medications: Home Medications (6) [...] = 1 Tab, Oral, BID , Medications (34) Active Scheduled: (13) #NaCl 0.9% *FLUSH* inj [...] 24 hour output: Total 3,155 ml VS/Measurements Vitals Signs (last 24 hrs) Last Charted Minimum Maximum Mon HR 74 (JAN 04 06:00) 60 (JAN 04 03:00) 85 (JAN 03 14:00) Resp Rate 15 (JAN 04:) L 11 (JAN 03 09:17) H 34 (JAN 03 15:00) SBP 125 (JAN 04:) L 86 (JAN 04:00) H 205 (JAN 03:) DBP 65 (JAN 04 06:00) L 51 (JAN 04:30) H 93 (JAN 03:) MAP 90 (JAN 04 06:00) 65 (JAN 04 01:30) 133 (JAN 03 10:00) SpO2 95 (JAN 04 06:00) 95 (JAN 03 10:00) 99 (JAN 03 11:31) General: Intubated/Sedated. Eye: Normal conjunctiva. HENT: Normocephalic. Respiratory: Symmetrical chest wall expansion. Breath sounds: Bilateral, Rhonchi present. Support: Ventilator. Cardiovascular: Normal rate, Regular rhythm, Good pulses equal in all extremities. Gastrointestinal: Soft, Non-distended, Normal bowel sounds. Genitourinary: indwelling rocha catheter. Musculoskeletal: No deformity. Integumentary: Warm, Dry. Neurologic: Intubated/Sedated. Psychiatric: Intubated/Sedated. Results Review JAN 04 04:14 145 112 H 25 / H 130 4.1 29 0.80 \ JAN 04 04:14 \ L 7.3 / 8.0 L 143 / L 23.4 \ Cardiac Markers (Current Encounter/Past 24 Hours) No Cardiac Marker Results Found (Past 24 Hours) Radiology Results (Last 48 hours) [id number] -- 12/27/2020 06:39 MRI Brain WO (01/02/2021 13:46) Result: MRI [...] dictated by Dr. Christiano Gurrola.Transcribed by Mynor Moran(Sherron).I have personally viewed, interpreted and dictated the examination. Ihave read and agree with the above final transcribed report. CR Chest 1 Vw Portable (01/04/2021 04:41) [...] s/p pericardiocentesis and surgical repair of LV [place]. PEA Arrest; CODE called 10 minutes to ROSC Mediastinal hemorrhage/Cardiac tamponade s/p emergent sternotomy; repair of left ventricular teat 12/27/2020 - Mechanical vent placed during surgery acute blood loss anemia s/p Transfusions: 4 units of PRBCs, cryoprecipitate, platelets, and FFP Hypertension Nonischemic cardiomyopathy Neurologic changes; CVA CT - no acute changes. MRI - Multiple acute infarcts PLAN; 01/04/2021 Appropriate cardiovascular medication. 4 extubation trial [...]
--- OUTSIDE RECORDS SUMMARY | 2025-01-16 11:45 | XMS_ITS | Encounter Summary ---
Author Organization [employer] Address [address] [place] [address] Care Team Providers Care Kiln Maintenance Name Role Phone Unavailable Primary Care Provider Unavailabl e Encounter Details Date Type Department Care Team (Late st Contact Info) Description 01/05/2021 Transcribed Document [facility] Cardiology [address] [place] [address] Danyelle Gomez MD [address] [facility] [address] [place] [id number] Social History Tobacco Use Types Packs/Day Years Used Date Smoking Tobacco: Never Assessed Sex and Gender Information Value Date Recorded Sex Assigned at Not on file Legal Sex Male 1:13 PM CDT Gender Identity Not on file Sexual Orientation Not on file documented as of this encounter Miscellaneous Notes * Cerner Conversion Note - Danyelle Gomez MD - 01/05/2021 11:28 AM EDT Patient: JOSE ADORNO Age: 80 years Sex: Male : 1940 Associated Diagnoses: None Author: DANYELLE GOMEZ MD-CAR Basic Information PCP: Robert Batista MD Primary Certified Dialysis Technician: Danyelle Gomez MD Subjective Patient seen and examined at the bedside. Moving and responding to questions and appears to be widely awake. Had a successful thoracentesis earlier today. Hopefully will extubate today. Health Status Allergies: Allergic Reactions (Selected) No [...] Medical Aortic valve stenosis / SNOMED CT 761165008 / Confirmed At risk for sleep apnea / IMO 84431632 / Confirmed Colorectal surgery / SNOMED CT 5149100538 / Confirmed HTN - Hypertension / SNOMED CT 2719361172 / Confirmed, Active Problems (13) Aortic stenosis, [...] ml VS/Measurements Measurements from flowsheet : Measurements 01/05/2021 6:16 EDT Routine Weight Source Bed scale Routine Weight Entry Format Metric Routine Weight, Kilograms 74.9 kg Routine Weight Calculation 74.9 kg , Vitals Signs (last 24 hrs) Last Charted Minimum Maximum Mon HR 72 (JAN 05 09:00) 69 (JAN 05 03:00) 82 (JAN 04:00) Resp Rate H 34 (JAN 05 09:00) L 10 (JAN 05 01:00) H 43 (JAN 05 00:22) SBP H 142 (JAN 05 09:00) 97 (JAN 05 07:00) H 169 (JAN 04:00) DBP 65 (JAN 05 09:00) L 52 (JAN 05:00) 80 (JAN 04:00) MAP 94 (JAN 05 09:00) 72 (JAN 05 07:00) 114 (JAN 04 20:00) SpO2 99 (JAN 05 09:00) 96 (JAN 05 01:00) 100 (JAN 04 11:47) General: Intubated/Sedated. Eye: Normal conjunctiva. HENT: Normocephalic. Respiratory: Symmetrical chest wall expansion. Breath sounds: Bilateral, Rhonchi present. Support: Ventilator. Cardiovascular: Normal rate, Regular rhythm, Good pulses equal in all extremities. Gastrointestinal: Soft, Non-distended, Normal bowel sounds. Genitourinary: indwelling rocha catheter. Musculoskeletal: No deformity. Integumentary: Warm, Dry. Neurologic: Alert, Intubated/Sedated. Psychiatric: Intubated/Sedated. Results Review JAN 05 05:20 141 111 H 24 / H 126 4.2 29 L 0.60 \ JAN 05 05:20 \ L 7.8 / H 9.9 174 / L 24.2 \ Cardiac Markers (Current Encounter/Past 24 Hours) No Cardiac Marker Results Found (Past 24 Hours) Radiology Results (Last 48 hours) [id number] -- 12/27/2020 06:39 CR Chest 1 Vw [...] dependent pleural effusions. Small on theleft and rutzu-ib-lxclxetk on the right side. These are associated [...] and Plan IMPRESSION: Aortic stenosis, severe 11/15/19 -[facility] no obstructive disease. BAV 09/19/19 - ECHO EF 40%. severe aortic stenosis peak P mean P.83 s/p TAVR 12/27/2020. Apical perforation/Acute tamponade s/p pericardiocentesis and surgical repair of LV [place]. PEA Arrest; CODE called 10 minutes to ROSC Mediastinal hemorrhage/Cardiac tamponade s/p emergent sternotomy; repair of left ventricular teat 12/27/2020 - Mechanical vent placed during surgery acute blood loss anemia s/p Transfusions: 4 units of PRBCs, cryoprecipitate, platelets, and FFP Hypertension Nonischemic cardiomyopathy Neurologic changes; CVA CT - no acute changes. MRI - Multiple acute infarcts PLAN; 01/05/2021 Awaiting extubation. I suspect if we [...]
--- OUTSIDE RECORDS SUMMARY | 2025-01-16 11:45 | XMS_ITS | Encounter Summary ---
Author Organization [facility] [facility] Address [address] [place] [address] Care Team Providers Care Batch And Furnace Manager Name Role Phone Unavailable Primary Care Provider Unavailabl e Encounter Details Date Type Department Care Team (Late st Contact Info) Description 01/05/2021 Transcribed Document [facility] [place] [address] [place] [address] ProviderMacrina MD [address] [place] [address] Social History Tobacco Use Types Packs/Day Years Used Date Smoking Tobacco: Never Assessed Sex and Gender Information Value Date Recorded Sex Assigned at Not on file Legal Sex Male 1:13 PM CDT Gender Identity Not on file Sexual Orientation Not on file documented as of this encounter Miscellaneous Notes * Cerner Conversion Note - Historical ProviderMD - 01/05/2021 12:24 PM CDT Patient: JOSE ADORNO Age: 80 Years Sex: Male : 1940 Subjective Patient remains intubated and sedated with Precedex and Fentanyl. Follows commands. Review of Systems Respiratory - patient has undergone thoracentesis. Objective Vitals & Measurements HR: 80(Monitored) RR: 20 BP: 142/65 SpO2: 99% WT: 74.9 kg Physical Exam Ill appearing male on ventilator. Follows commands bilaterally. Assessment/Plan 80yo M with h/o severe aortic stenosis, [...] side weakness; remains very alert on ventilator. He is on aspirin, will continue if tolerates. Continue PT/OT as tolerated, speech therapy when appropriate following extubation. Medications Inpatient acetaminophen-HYDROcodone 325 mg-5 mg oral tablet, 2 Tab, Oral, Q4H, PRN albumin human 5% intravenous solution, 12.5 Gram= 250 mL, IntraVENous, Daily, PRN Ambien, 5 mg= 1 Tab, Oral, At Bedtime, PRN Ancef, 2 Gram= 50 mL, IV Piggyback, 1-Time aspirin, 81 mg= 1 Tab, Oral, Daily atorvastatin, 40 mg= 1 Tab, Oral, At Bedtime dexmedeTOMIDine injection 400 mcg + NaCl 0.9% for drip 100 mL Dextrose, 25 Gram= 50 mL, IV Push, 1-Time, PRN Dextrose, 25 Gram= 50 mL, IV Push, 1-Time, PRN docusate sodium, 100 mg= 10 mL, Oral, BID Dulcolax Laxative, 10 mg= 1 Supp, Rectal, Daily, PRN DuoNeb 0.5 mg-2.5 mg/3 mL inhalation solution, 3 mL, Nebulized Inhalation , RT_Q4H, PRN fentaNYL injection 1,000 mcg + NaCl 0.9% Premix Diluent 100 mL gabapentin, 600 mg= 1 Tab, Oral, At Bedtime gabapentin, 300 mg= 1 Cap, Oral, Daily insulin regular 50 kg - 75 kg, 50 kg - 75 kg scale, SubCutaneous, Q6H lactobacillus acidophilus, 1 Cap, Oral, BID Maxipime + Sodium Chloride 0.9% intravenous solution 50 mL Milk of Magnesia 8% oral suspension, 30 mL, Oral, Daily, PRN MiraLax, 17 Gram= 1 Packet, Oral, Daily morphine, 1 mg= 0.5 mL, IV Push, Q3H, PRN niCARdipine injection 25 mg + NaCl 0.9% for drip 250 mL Nitrostat, 0.4 mg= 1 Tab, SubLINgual, Q5Min, PRN NORepinephrine injection 4 mg + NaCl 0.9% for drip 250 mL Normal Saline Flush, 10 mL, IV Push, See Comment, PRN Normal Saline Flush, 10 mL, IV Push, Q12H oxyCODONE, 5 mg= 1 Tab, Oral, Q6H, PRN potassium chloride 10 mEq/50 mL intravenous solution, 10 mEq= 50 mL, IV Piggyback, Q1H, PRN Protonix, 40 mg, IV Push, Daily senna, 8.8 mg= 5 mL, Oral, BID sodium bicarbonate, 50 mEq= 50 mL, IV Push, 1-Time, PRN sodium bicarbonate, 100 mEq= 100 mL, IV Push, 1-Time, PRN Tylenol, 650 mg= 2 Tab, Oral, Q4H, PRN Zofran, 4 mg= 2 mL, IV Push, Q4H, PRN documented in this encounter Plan of Treatment Not on file documented as of this encounter Visit Diagnoses Not on filedocumented in this encounter
--- OUTSIDE RECORDS SUMMARY | 2025-01-16 11:45 | XMS_ITS | Encounter Summary ---
Author Organization [facility] [employer] [facility] Address [address] [place] [address] Care Team Providers Care Butcher Fish Name Role Phone Unavailable Primary Care Provider Unavailabl e Encounter Details Date Type Department Care Team (Late st Contact Info) Description 12/28/2020 Transcribed Document [facility] [place] Medicine [address] [place] [address] ProviderMacrina MD [address] [place] [address] Social History Tobacco Use Types Packs/Day Years Used Date Smoking Tobacco: Never Assessed Sex and Gender Information Value Date Recorded Sex Assigned at Not on file Legal Sex Male 1:13 PM CDT Gender Identity Not on file Sexual Orientation Not on file documented as of this encounter Miscellaneous Notes * Cerner Conversion Note - Historical ProviderMD - 12/28/2020 1:16 PM CDT Spiritual Care Assessment Entered On: 12/28/2020 14:16 EDT Performed On: 12/28/2020 13:16 EDT by BRISSA SULLIVAN General Information Initial Visit : No Referred by : follow-up Referral Reason Comment : Critical care follow up visit Ministry Provided to : Patient, Family/Significant other BRISSA SULLIVAN - 12/28/2020 14:05 EDT Spiritual Assessment Spiritual Assessment Comment/Summary Points : Patient resting on vent. Provided active listening and spiritual support to . Shared prayer together over patient. Consulted with nursing. Spirital Assessment Comment/Summary Report : SPIRITUAL ASSESSMENT COMMENT/SUMMARY Spiritual Assessment Comment/Summary 12/27/20 18:37:00 follow up [...] Signed By: BRISSA SULLIVAN SCOTT P - 12/28/2020 14:05 EDT Interventions Emotional Support : Empathic/Engaged listening, Feelings expressed, Hope strengths identified Spiritual and Confucianist : Prayer shared, Spiritual/Confucianist support provided BRISSA SULLIVAN 12/28/2020 14:05 EDT documented in this encounter Plan of Treatment Not on file documented as of this encounter Visit Diagnoses Not on filedocumented in this encounter
--- OUTSIDE RECORDS SUMMARY | 2025-01-16 11:45 | XMS_ITS | Encounter Summary ---
Author Organization [facility] Address [address] [place] [address] Care Team Providers Care Orthotics Technician Name Role Phone Unavailable Primary Care Provider Unavailabl e Encounter Details Date Type Department Care Team (Late st Contact Info) Description 01/02/2021 Transcribed Document [facility] [place] [address] [place] [address] ProviderMacrina MD [address] [place] [address] Social History Tobacco Use Types Packs/Day Years Used Date Smoking Tobacco: Never Assessed Sex and Gender Information Value Date Recorded Sex Assigned at Not on file Legal Sex Male 1:13 PM CDT Gender Identity Not on file Sexual Orientation Not on file documented as of this encounter Miscellaneous Notes * Cerner Conversion Note - Historical ProviderMD - 01/02/2021 10:13 AM CDT Therapy Screen, OT Entered On: 01/02/2021 12:48 EDT Performed On: 01/02/2021 10:13 EDT by Lauren Newberry OCCUPATIONAL THERAPIST NON-EXEMPT Therapy Screen, OT Medical Chart Reviewed : Yes Screen Completed : Yes Additional Therapy Screen Comment : Pt was re intubated since therapy eval order and is currently intubated. SHYAM Alvarado notified pt will require new therapy orders when appropriate. Lauren Newberry OCCUPATIONAL THERAPIST NON-EXEMPT - 01/02/2021 12:47 EDT documented in this encounter Plan of Treatment Not on file documented as of this encounter Visit Diagnoses Not on filedocumented in this encounter
--- OUTSIDE RECORDS SUMMARY | 2025-01-16 11:45 | XMS_ITS | Encounter Summary ---
Author Organization [facility] In [facility] Address [address] [place] [address] Care Team Providers Care Compressed Gases Tester Name Role Phone Unavailable Primary Care Provider Unavailabl e Encounter Details Date Type Department Care Team (Late st Contact Info) Description 01/06/2021 Transcribed Document [facility] [place] Family Medicine [address] [place] [address] ProviderMacrina MD [address] [place], [place] [id number] Social History Tobacco Use Types Packs/Day Years Used Date Smoking Tobacco: Never Assessed Sex and Gender Information Value Date Recorded Sex Assigned at Not on file Legal Sex Male 1:13 PM CDT Gender Identity Not on file Sexual Orientation Not on file documented as of this encounter Miscellaneous Notes * Cerner Conversion Note - Historical ProviderMD - 01/06/2021 5:00 PM CDT Chart Check - Review Order Profile Entered On: 01/06/2021 18:26 EDT Performed On: 01/06/2021 17:00 EDT by Shayy Bowie RN Chart Check Powerplans Initiated/Discontinued as Appropriate : Yes All Active Orders Reviewed : Yes Shayy Bowie RN - 01/06/2021 18:26 EDT documented in this encounter Plan of Treatment Not on file documented as of this encounter Visit Diagnoses Not on filedocumented in this encounter
--- OUTSIDE RECORDS SUMMARY | 2025-01-16 11:45 | XMS_ITS | Encounter Summary ---
Author Organization [facility] Address [address] [place] [address] Care Team Providers Care Lean Engineer Name Role Phone Unavailable Primary Care Provider Unavailabl e Encounter Details Date Type Department Care Team (Late st Contact Info) Description 01/17/2021 Transcribed Document [facility] [place] Family Medicine [address] [place] [address] ProviderMacrina MD [address] [place] [address] Social History Tobacco Use Types Packs/Day Years Used Date Smoking Tobacco: Never Assessed Sex and Gender Information Value Date Recorded Sex Assigned at Not on file Legal Sex Male 1:13 PM CDT Gender Identity Not on file Sexual Orientation Not on file documented as of this encounter Miscellaneous Notes * Cerner Conversion Note - Historical ProviderMD - 01/17/2021 8:36 AM CDT Spiritual Care Short Form Entered On: 01/17/2021 9:24 EDT Performed On: 01/17/2021 8:36 EDT by BRISSA SULLIVAN General Information, Spiritual Care Spiritual Care Referred by : Bronze Plater initiated Reason for Visit : Follow Up Ministry Provided to : Patient Intervention/Comment/Summary Points : Provided pre-surgery visit and prayer. Yazidi Preference : Sabianism BRISSA SULLIVAN - 01/17/2021 9:23 EDT documented in this encounter Plan of Treatment Not on file documented as of this encounter Visit Diagnoses Not on filedocumented in this encounter
--- OUTSIDE RECORDS SUMMARY | 2025-01-16 11:45 | XMS_ITS | Encounter Summary ---
Author Organization [facility] Address [address] [place] [address] Care Team Providers Care Physician Primary Care Sports Medicine Name Role Phone Unavailable Primary Care Provider Unavailabl e Encounter Details Date Type Department Care Team (Late st Contact Info) Description 01/01/[address] [facility] [place] Family Medicine [address] [place] [address] ProviderMacrina MD [address] [place] [address] Social History Tobacco Use Types Packs/Day Years Used Date Smoking Tobacco: Never Assessed Sex and Gender Information Value Date Recorded Sex Assigned at Not on file Legal Sex Male 1:13 PM CDT Gender Identity Not on file Sexual Orientation Not on file documented as of this encounter Miscellaneous Notes * Cerner Conversion Note - Historical ProviderMD - 01/01/2021 5:00 AM CDT Chart Check - Review Order Profile Entered On: 01/01/2021 6:36 EDT Performed On: 01/01/2021 5:00 EDT by PEEWEE SMITH RN Chart Check Powerplans Initiated/Discontinued as Appropriate : Yes All Active Orders Reviewed : Yes PEEWEE SMITH RN - 01/01/2021 6:36 EDT Electronically signed by Olinda Payne Conversion Potable Water Treatment Operator Cerner at 11/10/2022 9:32 AM CDT documented in this encounter Plan of Treatment Not on file documented as of this encounter Visit Diagnoses Not on filedocumented in this encounter
--- OUTSIDE RECORDS SUMMARY | 2025-01-16 11:45 | XMS_ITS | Encounter Summary ---
Author Organization [facility] Address [address] [place] [address] Care Team Providers Care Rod Hanger Name Role Phone Unavailable Primary Care Provider Unavailabl e Encounter Details Date Type Department Care Team (Late st Contact Info) Description 12/27/2020 Transcribed Document [facility] [place] [address] [place] [address] ProviderMacrina MD [address] [place], [place] [address] Social History Tobacco Use Types Packs/Day Years Used Date Smoking Tobacco: Never Assessed Sex and Gender Information Value Date Recorded Sex Assigned at Not on file Legal Sex Male 1:13 PM CDT Gender Identity Not on file Sexual Orientation Not on file documented as of this encounter Miscellaneous Notes * Cerner Conversion Note - Historical ProviderMD - 12/27/2020 2:00 PM CDT Sepsis Screening Tool Entered On: 12/27/2020 22:19 EDT Performed On: 12/27/2020 14:00 EDT by Manny Spencer RN Provider Notification Provider Notified of Concerns/Results : Critical value result Manny Spencer RN - 12/27/2020 22:18 EDT Electronically signed by [facility] Conversion Executive Cyber Leader Cerner at 11/10/2022 9:05 AM CDT documented in this encounter Plan of Treatment Not on file documented as of this encounter Visit Diagnoses Not on filedocumented in this encounter
--- OUTSIDE RECORDS SUMMARY | 2025-01-16 11:45 | XMS_ITS | Encounter Summary ---
Author Organization [facility] Address [address] [place] [address] Care Team Providers Care Clinical Project Coordinator Name Role Phone Unavailable Primary Care Provider Unavailabl e Encounter Details Date Type Department Care Team (Late st Contact Info) Description 12/27/2020 Transcribed Document [facility] [place] [address] [place] [address] ProviderMacrina MD [address] [place] [address] Social History Tobacco Use Types Packs/Day Years Used Date Smoking Tobacco: Never Assessed Sex and Gender Information Value Date Recorded Sex Assigned at Not on file Legal Sex Male 1:13 PM CDT Gender Identity Not on file Sexual Orientation Not on file documented as of this encounter Miscellaneous Notes * Cerner Conversion Note - Macrina Cordova MD - 12/27/2020 10:17 AM CDT DATE OF PROCEDURE: 12/27/2020 SURGEON: Cuauhtemoc Gresham MD PRIMARY CARE PHYSICIAN: Dr. Steve Amor. PREOPERATIVE DIAGNOSIS: Critical aortic valve stenosis. POSTOPERATIVE DIAGNOSIS: Critical aortic valve stenosis. PROCEDURES: 1. Transcatheter aortic valve replacement using a 29 mm Vivas ROC 3 Ultra bioprosthetic valve via right common femoral artery under conscious sedation. 2. Ascending aortography. 3. Insertion of temporary pacemaker via left common femoral vein. 4. Initiation of cardiopulmonary resuscitation. 5. Emergent percutaneous pericardial window. 6. Transthoracic echocardiography. ANESTHESIA: MAC with 1% lidocaine. OPERATORS: 1. Dr. Arthur Gomez. 2. Dr. Cuauhtemoc Gresham. 3. Dr. Enrique Valle. INDICATION FOR PROCEDURE: Mr. Francesco Adorno is an 80-year-old male, who was found to have severe aortic valve stenosis with a peak gradient of 75.8 mmHg across the aortic valve. His left heart catheterization did not reveal any evidence of coronary artery disease. The patient was deemed to be a good candidate for transcatheter aortic valve implantation. DESCRIPTION OF PROCEDURE: After informed consent was obtained, the patient was brought into the cardiac catheterization room and was placed in supine position. General endotracheal anesthesia was administered without any complication. Entire chest, abdomen, groin, and both lower extremities to the knee were prepped and draped in sterile fashion. Time-out was called. Patient identity and the procedure were confirmed. Access to the right common femoral artery was obtained using ultrasound guidance. The was performed using a micropuncture technique. Ultimately, a 6-Monegasque sheath was inserted into the right femoral artery. Two Perclose were deployed in a preclose fashion, and the sheath was then upsized to an 8-Monegasque. Using a similar technique, a 6-Monegasque sheath was inserted into the left femoral artery, and a 6-Monegasque sheath was inserted into the left femoral vein. A 5-Monegasque transvenous pacemaker was inserted through the venous sheath and was then advanced under fluoroscopic guidance to the right ventricular free wall. Pacing capture was confirmed. A 5-Monegasque pigtail catheter was then advanced through the left femoral arterial sheath and was positioned in the right coronary cusp. Supravalvular aortography was then performed. The cold planar view was confirmed. The Amplatz Extra Stiff wire was then inserted through the 8-Monegasque sheath into the arterial system. The 8-Monegasque sheath was then subsequently removed. After sequential dilatation of the tissue tract, ultimately a 16-Monegasque Vivas eSheath was inserted without difficulty. The patient was systemically heparinized and adequate ACT was obtained. Over the Extra Stiff Amplatz wire, a 6-Monegasque AL1 diagnostic catheter was placed and was advanced to the supravalvular area. The Extra Stiff wire was then exchanged to a straight-tipped 0.035-inch guidewire. The aortic valve was then crossed. An AL1 diagnostic catheter was advanced into the left ventricular cavity. The crossing wire was then exchanged for a long 0.035 J-tip safety wire. Over the J-tip wire, the pigtail catheter was placed in the left ventricular apex. Through this catheter, a 0.035-inch Extra Stiff Amplatz guidewire with an exaggerated distal curve was positioned in the left ventricular apex. At this point over the Amplatz wire, the valve delivery system was inserted and was advanced into the descending aorta. In the descending portion of the aorta, the valve delivery balloon was positioned in the valve. The flex catheter was flexed, and the system was advanced across the aortic arch and across the aortic valve without difficulty. Supravalvular aortography was then performed, and the valve position appeared to be appropriate. Rapid ventricular pacing wire was initiated, and the valve was deployed and remained stable without difficulty. Post deployment of the valve, the patient did not resume adequate hemodynamics. The patient's blood pressure remained low, and ultimately cardiopulmonary resuscitation was initiated. Epinephrine was also administered by the Anesthesia without any significant improvement. At this point, a transthoracic echocardiography was performed, which revealed a good-sized acute accumulation of the fluid in the pericardial sac consistent with pericardial tamponade. At this point, emergent percutaneous catheter insertion in the pericardial window was performed using an echocardiography and fluoroscopy. The catheter was advanced into the pericardial sac. The blood was then evacuated from the pericardial sac with improvement of the blood pressure; this was continued. At this point, supravalvular aortography was also performed, which did not reveal any evidence of aortic tear or any leakage from the implantation site of the prosthetic aortic valve. The valve was seated very nicely. There was no evidence of any perivalvular leak. At this point, the delivery system was removed. Using a J-tip guidewire, aortic valve was then crossed and pigtail catheter was placed in the left ventricular cavity. Left ventriculogram was then performed. This revealed evidence of a small tear with a very tiny neck at the level of the apex of the left ventricle. With that in mind, we decided to proceed with reversal of the heparin. After removal of the Vivas eSheath over the wire, the Perclose were tightened up. Temporary venous pacemaker wire was also removed. Heparin was reversed using protamine sulfate. After entire protamine was in, the sutures in the Perclose were tightened and cut and removed. Adequate hemostasis in both groins was obtained. After complete reversal of the heparin, repeat echocardiography did not reveal any further accumulation of the fluid in the pericardial sac. The patient remained hemodynamically stable. The patient was subsequently transferred to the intensive care unit for monitoring. /[id number] MD MICHAEL Carrington/STACIE / HRM / MODL /[id number] CC: MD Steve Carrington MD Electronically signed by [facility] Conversion Oceanologist Cerner at 11/10/2022 9:03 AM CDT documented in this encounter Plan of Treatment Not on file documented as of this encounter Visit Diagnoses Not on filedocumented in this encounter
--- OUTSIDE RECORDS SUMMARY | 2025-01-16 11:45 | XMS_ITS | Encounter Summary ---
Author Organization [facility] Address [address] [place] [address] Care Team Providers Care Heatset Winder Operator Name Role Phone Unavailable Primary Care Provider Unavailabl e Encounter Details Date Type Department Care Team (Late st Contact Info) Description 01/15/2021 Transcribed Document [facility] [place] Family Medicine [address] [place] [address] ProviderMacrina MD [address] [place], [place] [address] Social History Tobacco Use Types Packs/Day Years Used Date Smoking Tobacco: Never Assessed Sex and Gender Information Value Date Recorded Sex Assigned at Not on file Legal Sex Male 1:13 PM CDT Gender Identity Not on file Sexual Orientation Not on file documented as of this encounter Miscellaneous Notes * Cerner Conversion Note - Historical ProviderMD - 01/15/2021 5:00 PM CDT Chart Check - Review Order Profile Entered On: 01/15/2021 15:02 EDT Performed On: 01/15/2021 17:00 EDT by Pavel Rizvi, Coagulant Dipper-Student Nurse Chart Check Powerplans Initiated/Discontinued as Appropriate : Not applicable All Active Orders Reviewed : Yes Pavel Rizvi, Coagulant Dipper-Student Nurse - 01/15/2021 15:02 EDT Electronically signed by [facility] Conversion Ground Support Equipment Mechanic Cerner at 11/10/2022 9:27 AM CDT documented in this encounter Plan of Treatment Not on file documented as of this encounter Visit Diagnoses Not on filedocumented in this encounter
--- OUTSIDE RECORDS SUMMARY | 2025-01-16 11:45 | XMS_ITS | Encounter Summary ---
Author Organization [facility] Address [address] [place] [address] Care Team Providers Care Waist Pleater Name Role Phone Unavailable Primary Care Provider Unavailabl e Encounter Details Date Type Department Care Team (Late st Contact Info) Description 01/17/2021 Transcribed Document [facility] [place] [facility] [place] [facility] [place] [address] ProviderMacrina MD [address] [place] [address] Social History Tobacco Use Types Packs/Day Years Used Date Smoking Tobacco: Never Assessed Sex and Gender Information Value Date Recorded Sex Assigned at Not on file Legal Sex Male 1:13 PM CDT Gender Identity Not on file Sexual Orientation Not on file documented as of this encounter Miscellaneous Notes * Cerner Conversion Note - Macrina Cordova MD - 01/17/2021 11:31 AM CDT Patient: JOSE ADORNO Age: 80 Years Sex: Male : 1940 *Operation EGD with PEG Indication for Surgery Dysphagia, feeding difficulty *Preoperative Diagnosis Dysphagia, feeding difficulty *Postoperative Diagnosis Dysphagia, feeding difficulty *Surgeon(s) Primary Surgeon PEYTON BEATTY MD (Surgeon/Proceduralist, First) EMILIANO Jordan *Procedure Narrative He was brought to the operating room and was placed on the table in supine position. Conscious sedation was administered. Timeout was called to identify the patient and procedure. A well-lubricated flexible endoscope was inserted through the mouth and down the esophagus under direct vision. The stomach was entered and was insufflated. The scope was then advanced through the pylorus into the duodenum which was normal. The scope was withdrawn. Retroflexed view showed a small hiatal hernia. There was no other significant abnormality. A 1-1 manual impulse was identified on the anterior abdominal wall which corresponded to an area with good light reflex. This was around 2 cm inferior to the costal margin on the left side, just lateral to his prior chest tube sites. This was prepped and draped. A small incision in the skin was made after local anesthetic was injected and the catheter was inserted into the stomach under direct vision. A 20 Cymro PEG was placed under standard pull technique. Repeat endoscopy showed the bumper against the anterior gastric wall with no bleeding. The scope was withdrawn completely and the esophagus was normal. External bolster was secured around 3 cm at the skin. The surgical site was hemostatic. An abdominal binder was placed to prevent inadvertent pulling or dislodgment. He tolerated this well and was brought to recovery. Drains/Packs Used None Anesthesia Sedation *Estimated Blood Loss Minimal *Findings Successful placement of 20 Cymro PEG *Specimen(s) None Complications None immediate Date of Service Date/Time of Service SN - Proc - Start Time: 12/27/20 17:41:00 (12/27/20 18:39:23) documented in this encounter Plan of Treatment Not on file documented as of this encounter Visit Diagnoses Not on filedocumented in this encounter
--- OUTSIDE RECORDS SUMMARY | 2025-01-16 11:45 | XMS_ITS | Encounter Summary ---
Author Organization [facility] Address [address] [place] [address] Care Team Providers Care Car Ferry Captain Name Role Phone Unavailable Primary Care Provider Unavailabl e Encounter Details Date Type Department Care Team (Late st Contact Info) Description 01/06/2021 Transcribed Document [facility] Pulm & Critical Care Medicine [address] [place] [address] [address] [place] [address] Willie Espinoza MD [address] [facility] [address] [place] [address] Social History Tobacco Use Types Packs/Day Years Used Date Smoking Tobacco: Never Assessed Sex and Gender Information Value Date Recorded Sex Assigned at Not on file Legal Sex Male 1:13 PM CDT Gender Identity Not on file Sexual Orientation Not on file documented as of this encounter Miscellaneous Notes * Cerner Conversion Note - Willie Espinoza MD - 01/06/2021 8:03 PM EDT Patient: JOSE ADORNO Age: 80 [...] 0.5 MCG/KG/. 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 MRI brain yesterday revealed [...] 180s. 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 ICU day: 11 Vent day: 5, extubated 12/31/20 Reintubated 01/01/21, extubated 01/05 TLDL 12/27/20 Intake & Output Totals Last 24 Hours (7a-7a) Intake (22 Events) Continuous Infusions (41.3 mL) Medications (229.5 mL) Output (11 Events) Spence Catheter (3740 mL) Input Total: 270.8 mL Output Total: 3740 mL Balance: -3469.2 mL Review of Systems Constitutional: Weakness, Fatigue. Cardiovascular: Chest pain: incisional . Unable to obtain: Follows commands denies abdominal [...] Oral, BID metoprolol tartrate: 25 mg, Oral, Q6H morphine: 1 mg, IV [...] Oral, BID, 60 Tab, 0 Refill(s), Medications (39) Active Scheduled: (17) #NaCl 0.9% [...] Medical Aortic valve stenosis / SNOMED CT 024328349 / Confirmed At risk for sleep apnea / IMO [id number] / Confirmed Colorectal surgery / SNOMED CT 0118123207 / Confirmed HTN - Hypertension / SNOMED CT 1610388758 / Confirmed, Active Problems (13) Aortic stenosis, severe Aortic valve stenosis Arthritis of right knee At risk for sleep apnea Back pain, chronic Chronic anxiety Colorectal surgery Disorder of prostate GERD - Gastro-esophageal reflux disease H/O peripheral neuropathy HTN - Hypertension Hyperlipidemia Hypertension Physical Examination VS/Measurements Vitals Signs (last 24 hrs) Last Charted Minimum Maximum Apical HR H 101 (JAN 06 16:59) L 10 (JAN 06 01:09) H 101 (JAN 06 16:59) Mon HR 101 (JAN 06 21:00) 85 (JAN 06 11:00) 106 (JAN 06 19:00) Resp Rate 16 (JAN 06 21:00) L 12 (JAN 06 09:00) H 33 (JAN 06 06:00) SBP H 163 (JAN 06 21:00) 132 (JAN 05 22:00) H 177 (JAN 06 16:00) DBP 76 (JAN 06 21:00) 63 (JAN 06 02:00) 84 (JAN 06 15:00) MAP 109 (JAN 06 21:00) 91 (JAN 05 22:00) 120 (JAN 06 16:00) SpO2 98 (JAN 06 21:00) L 92 (JAN 06 19:00) 100 (JAN 06 10:00) Intake & Output Totals Last 24 Hours (7a-7a) Intake (22 Events) Continuous Infusions (41.3 mL) Medications (229.5 mL) Output (11 Events) Spence Catheter (3740 mL) Input Total: 270.8 mL Output Total: 3740 mL Balance: -3469.2 mL General: Mild distress, 6L NC. Eye: Pupils are equal, round and reactive to light, Extraocular movements are intact, Normal conjunctiva. HENT: Normocephalic. Mouth: Oral mucosa ( Dry ). Neck: Supple, No lymphadenopathy. Respiratory: Breath sounds are equal, Bilateral rhonchi, diminished bases, weak cough effort. removed by cts 01/04 Cardiovascular: Normal rate, Regular rhythm, No edema. Gastrointestinal: Soft, Non-tender, Non-distended. Bowel sounds: All four quadrants, Diminished. Support: Gastric tube ( Nasal ). Genitourinary: Support: Urinary catheter ( Indwelling ). Musculoskeletal: No swelling, No deformity. Integumentary: Warm, Dry. Integumentary exam: Pale. Neurologic: Alert, No focal deficits. Psychiatric: Cooperative. Review / Management Results review: Labs (Last four charted values) WBC H 15.8 (JAN 06) H 9.9 (DEC 12) 8.0 (DEC 11) H 9.6 (DEC 10) HB L 9.2 (JAN 06) L 7.8 (DEC 12) L 7.3 (DEC 11) L 8.1 (CESAR 10) HCT L 28.1 (CESAR 13) L 24.2 (CESAR 12) L 23.4 (CESAR 11) L 25.5 (CESAR 10) Plt 253 (CESAR 13) 174 (CESAR 12) L 143 (CESAR 11) L 147 (CESAR 10) Na 138 (CESAR 13) 141 (CESAR 12) 145 (CESAR 11) 145 (CESAR 10) K 3.8 (CESAR 13) 4.2 (CESAR 12) 4.1 (CESAR 11) 4.0 (CESAR 10) Cl 106 (CESAR 13) 111 (CESAR 12) 112 (CESAR 11) 112 (CESAR 10) CO2 28 (CESAR 13) 29 (CESAR 12) 29 (CESAR 11) 30 (CESAR 10) BUN 22 (CESAR 13) H 24 (CESAR 12) H 25 (CESAR 11) H 34 (CESAR 10) Cr L 0.60 (CESAR 13) L 0.60 (CESAR 12) 0.80 (CESAR 11) 0.80 (CESAR 10) Glu R H 119 (CESAR 13) H 126 (CESAR 12) H 130 (CESAR 11) H 138 (CESAR 10) Ca L 8.2 (CESAR 13) L 7.8 (CESAR 12) L 8.1 (CESAR 11) L 7.7 (CESAR 10) Lactic 1.0 (CESAR 13) 1.2 (CESAR 07) 1.4 (CESAR 06) 1.4 (CESAR 06) PT 11.4 (CESAR 04) H 17.4 (CESAR 03) H 14.3 (CESAR 03) H 18.7 (CESAR 03) INR 1.1 (CESAR 04) H 1.7 (CESAR 03) H 1.4 (CESAR 03) H 1.8 (CESAR 03) PTT 27.8 (CESAR 05) H 62.4 (CESAR 03) H 37.3 (CESAR 03) H 55.9 (CESAR 03) AST H 41 (CESAR 13) H 46 (CESAR 12) 32 (CESAR 11) H 39 (CESAR 10) ALT 49 (CESAR 13) 46 (CESAR 12) 35 (CSEAR 11) 33 (CESAR 10) ALK P 80 (CESAR 13) 63 (CESAR 12) 63 (CESAR 11) 73 (CESAR 10) T Bili H 1.8 (CESAR 13) 1.1 (CESAR 12) H 1.5 (CESAR 11) H 1.3 (CESAR 10) PTN L 6.1 (CESAR 13) L 5.3 (JAN 05) L 5.2 (JAN 04) L 5.3 (JAN 03) ALB L 2.5 (JAN 06) L 2.2 (JAN 05) L 2.3 (JAN 04) L 2.1 (JAN 03) Troponin <0.015 (DEC 25) . Blood Gases (Current Encounter/Past 24 Hours) pH Art 7.49 VA 01/06/2021 07:08 pCO2 Art 37.3 01/06/2021 05:09 pO2 Art 72.3 LOW 01/06/2021 07:08 HCO3 Art 28.7 HI 01/06/2021 07:08 BE Art 5.1 VA 01/06/2021 07:08 sO2 Art 95.8 01/06/2021 05:09 tHb Art 9.8 LOW 01/06/2021 07:08 FHHb 4.1 NA 01/06/2021 05:09 ctO2 13.1 NA 01/06/2021 05:09 Delivery Device Type Art Cannula NA 01/06/2021 05:09 Temperature, F Art 98.6 01/06/2021 05:09 Art Blood Gas (ABG) Site Right Radial NA 01/06/2021 05:09 Acceptable Grey's Test Art Acceptable NA 01/06/2021 05:09 Ventilator Mode Art N/A NA 01/06/2021 05:09 Oxygen Flow Rate Art 6.0 NA 01/06/2021 05:09 ABG Num of Draw Attempts 1 NA 01/06/2021 05:09 JAN 06 04:30 138 106 22 / H 119 3.8 28 L 0.60 \ JAN 06 04:30 \ L 9.2 / H 15.8 253 / L 28.1 \ Blood Gases (Current Encounter/Past 24 Hours) pH Art 7.49 VA 01/06/2021 07:08 pCO2 Art 37.3 01/06/2021 05:09 pO2 Art 72.3 LOW 01/06/2021 07:08 HCO3 Art 28.7 HI 01/06/2021 07:08 BE Art 5.1 VA 01/06/2021 07:08 sO2 Art 95.8 01/06/2021 05:09 [...] of Draw Attempts 1 NA 01/06/2021 05:09 Radiology Results (Last 48 hours) [id number] -- 12/27/2020 06:39 CR Chest 1 Vw Portable (01/05/2021 03:56) [...] CT-GUIDED THORACENTESISHISTORY: Pleural effusion.ATTENDING PHYSICIAN: Dr. Youssef METAL CASKET MAKER: LUCÍA Cantor-CTECHNIQUE: Informed consent was obtained from [...] interpreted, and dictated by Bebeto Avelar MD MRI of the brain was reported to [...] culture is: Gram-negative ellen Klebsiella Blood culture negative Antibiotic Zosyn started 12/31 stopped 01/05 Impression [...] off. Will use BIPAP PRN for increased WOB. Supplemental O2 to maintain O2 saturations 92-96% Duonebs Q6H Mucinex 200mg Q6H Bumex 1mg x1 Encourage IS and FV off all sedation Neuro following, appreciate Dr. Thorne's input Hemodynamics: Stable, off pressors Lisinopril 20mg BID and metoprolol 25mg BID CTS following Cardiology following -Stop Amio secondary to prolonged QTc, discussed with CTS and cardiology Anbx: Zosyn for total of 8 days, Klebsiella PNA, stop Zosyn and switch to Cefepime continue course TF per dietary, Corpak in place, increase to goal rate Prophylaxis: Protonix, SCDs -Anticoagulation per CTS Bowel regimen: Docusate, Senna, Miralax Speech consult for swallow evaluation 01/07 CXR and labs in AM FULL CODE Prognosis - Guarded. D/w Dr. Gomez from cardiology. D/w RN and RT. I saw and [...] spent on the patient excluding procedures - 31 min. documented in this encounter Plan of Treatment Not on file documented as of this encounter Visit Diagnoses Not on filedocumented in this encounter
--- OUTSIDE RECORDS SUMMARY | 2025-01-16 11:45 | XMS_ITS | Encounter Summary ---
Author Organization [facility] Address [address] [place] [address] Care Team Providers Care Human Resources Mgr Name Role Phone Unavailable Primary Care Provider Unavailabl e Encounter Details Date Type Department Care Team (Late st Contact Info) Description 01/06/2021 Transcribed Document [facility] [place] [address] [place] [address] ProviderMacrina MD [address] [place] [address] Social History Tobacco Use Types Packs/Day Years Used Date Smoking Tobacco: Never Assessed Sex and Gender Information Value Date Recorded Sex Assigned at Not on file Legal Sex Male 1:13 PM CDT Gender Identity Not on file Sexual Orientation Not on file documented as of this encounter Miscellaneous Notes * Cerner Conversion Note - Historical ProviderMD - 01/06/2021 1:30 AM CDT Spiritual Care Short Form Entered On: 01/06/2021 7:36 EDT Performed On: 01/06/2021 1:30 EDT by Carroll Dudley Chaplain-Non Cert General Information, Spiritual Care Spiritual Care Referred by : Nurse Reason for Visit : Initial Ministry Provided to : Patient Intervention/Comment/Summary Points : Pt experiencing strong, negative emotions related to chest pain. 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 Contract Recruiter held pt's hand and provided patoral presence and prayer. Buddhism Preference : Spiritism Carroll Dudley Chaplain-Non Cert - 01/06/2021 7:34 EDT documented in this encounter Plan of Treatment Not on file documented as of this encounter Visit Diagnoses Not on filedocumented in this encounter
--- OUTSIDE RECORDS SUMMARY | 2025-01-16 11:45 | XMS_ITS | Encounter Summary ---
Author Organization [facility] Address [address] [place] [address] Care Team Providers Care Salesperson Trailers And Motor [employer] Name Role Phone Unavailable Primary Care Provider Unavailabl e Encounter Details Date Type Department Care Team (Late st Contact Info) Description 01/02/2021 Transcribed Document [facility] [place] [address] [place] [address] ProviderMacrina MD [address] [place] [address] Social History Tobacco Use Types Packs/Day Years Used Date Smoking Tobacco: Never Assessed Sex and Gender Information Value Date Recorded Sex Assigned at Not on file Legal Sex Male 1:13 PM CDT Gender Identity Not on file Sexual Orientation Not on file documented as of this encounter Miscellaneous Notes * Cerner Conversion Note - Historical ProviderMD - 01/02/2021 1:37 PM CDT Attempt to Treat, PT Entered On: 01/02/2021 13:37 EDT Performed On: 01/02/2021 13:37 EDT by ARIANE PIERCE, PT Attempt to Treat Unable to Treat Due To : Patient on hold Inability to Treat Comment : Hold today and check back tomorrow. Pt is gone for MRI and is still intubated. ARIANE PIERCE, PT - 01/02/2021 13:37 EDT documented in this encounter Plan of Treatment Not on file documented as of this encounter Visit Diagnoses Not on filedocumented in this encounter
--- OUTSIDE RECORDS SUMMARY | 2025-01-16 11:45 | XMS_ITS | Encounter Summary ---
Author Organization [facility] Address [address] [place] [address] Care Team Providers Care School Business Manager Name Role Phone Unavailable Primary Care Provider Unavailabl e Encounter Details Date Type Department Care Team (Late st Contact Info) Description 01/05/2021 Transcribed Document [facility] [place] [facility] [place] [address] ProviderMacrina MD [address] [place], [place] [id number] Social History Tobacco Use Types Packs/Day Years Used Date Smoking Tobacco: Never Assessed Sex and Gender Information Value Date Recorded Sex Assigned at Not on file Legal Sex Male 1:13 PM CDT Gender Identity Not on file Sexual Orientation Not on file documented as of this encounter Miscellaneous Notes * Cerner Conversion Note - Macrina Cordova MD - 01/05/2021 9:09 AM CDT Patient: JOSE ADORNO Age: 80 [...] 1012. 01/02/21: POD#6 Intubated and sedated on [id number] and Precedex .6mcg/kg/min. He is also on [...] Oral, BID, 60 Tab, 0 Refill(s), Medications (34) Active Scheduled: (13) #NaCl 0.9% [...] At risk for sleep apnea / IMO [id number] / Confirmed Colorectal surgery / SNOMED CT 6766002698 / Confirmed Aortic valve stenosis / SNOMED CT 472031688 / Confirmed HTN - Hypertension / SNOMED CT 6808029052 / Confirmed, Active Problems (13) Aortic stenosis, [...] Minimum Maximum Mon HR 72 (JAN 05 07:57) 69 (JAN 05 03:00) 82 (JAN 04 20:00) Resp Rate 14 (JAN 05 07:57) L 10 (JAN 05 01:00) H 43 (JAN 05 00:22) SBP H 147 (JAN 05 06:05) 100 (JAN 04 22:00) H 169 (JAN 04 20:00) DBP 68 (JAN 05 06:05) L 53 (JAN 05 01:00) 80 (JAN 04 20:00) MAP 98 (JAN 05 06:05) 74 (JAN 05 03:00) 114 (JAN 04 20:00) SpO2 98 (JAN 05 07:57) 96 (JAN 05 01:00) 100 (JAN 04 11:47) General: Intubated and arouses, follows simple commands. HENT: Normocephalic. Neck: Supple. Respiratory: Breath sounds: Rhonchi present. Cardiovascular: Normal rate, 70 beats per minute, Regular rhythm, S1, S2, No edema. Gastrointestinal: Soft, Non-distended, Normal bowel sounds. Integumentary: Warm, Dry, [place]. Neurologic: The pt is able to move both his left and right side with right being weaker than the left. . Psychiatric: Cooperative. Review / Management Results review: JAN 05 05:20 141 111 H 24 [...] 04:28 PaO2/FiO2 calculated 209 NA 01/05/2021 04:28 Coagulation Results (Current Encounter/Past 24 Hours) No [...] Pre-Op Diagnosis, Medical. Electronically signed by [facility] Conversion Beam Machine Operator Cerner at 11/10/2022 9:08 AM CDT documented in this encounter Plan of Treatment Not on file documented as of this encounter Visit Diagnoses Not on filedocumented in this encounter
--- OUTSIDE RECORDS SUMMARY | 2025-01-16 11:45 | XMS_ITS | Encounter Summary ---
Author Organization [facility] Address [address] [place] [address] Care Team Providers Care Release And Technical Records Clerk Name Role Phone Unavailable Primary Care Provider Unavailabl e Encounter Details Date Type Department Care Team (Late st Contact Info) Description 01/09/2021 Transcribed Document [facility] [place] [address] ProviderMacrina MD [address] [place], [place] [id number] Social History Tobacco Use Types Packs/Day Years Used Date Smoking Tobacco: Never Assessed Sex and Gender Information Value Date Recorded Sex Assigned at Not on file Legal Sex Male 1:13 PM CDT Gender Identity Not on file Sexual Orientation Not on file documented as of this encounter Miscellaneous Notes * Cerner Conversion Note - Macrina Cordova MD - 01/09/2021 3:04 PM CDT Patient: JOSE ADORNO Age: 80 [...] 0.5 MCG/KG/. 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 MRI brain yesterday revealed [...] 180s. 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 TM 100.2. ICU day: 14 Vent day: 5, extubated 12/31/20 Reintubated 01/01/21, extubated 01/05 PICC Intake & Output Totals Last 24 Hours (7a-7a) Intake (49 Events) Continuous Infusions (741.8125 mL) Medications (1048 mL) Enteral Feeding Amount (1200 mL) Tube Flush (240 mL) Output (13 Events) Spence Catheter (2002 mL) Input Total: 3229.8125 mL Output Total: 2002 mL Balance: 1227.8125 mL Review of Systems Constitutional: Weakness, Fatigue. [...] Inhalation, RT_Q6H Lexapro: 10 mg, Oral, Daily Maxipime + Sodium Chloride 0.9% intravenous [...] Comment, PRN: IV Use Pepcid: 20 mg, Oral, Daily SEROquel: 12.5 [...] Bedtime bumetanide: 0.5 mg, IV Push, Daily calcium gluconate + Sodium Chloride 0.9% intravenous solution 50 mL: 1,000 mg, 10 mL, 60 mL/Hr, IV Piggyback, 1-Time docusate sodium: 100 mg, Oral, BID, PRN: Constipation gabapentin: 300 mg, Oral, Daily gabapentin: 600 mg, Oral, At Bedtime hydrALAZINE: 10 mg, IV Push, Q6H, PRN: Hypertension insulin regular 50 kg - 75 k kg - 75 kg scale, SubCutaneous, Q6H lactobacillus acidophilus: 1 Cap, Oral, BID lisinopril: 10 mg, Oral, BID melatonin: 5 mg, Oral, At Bedtime metoprolol tartrate: 50 mg, Oral, Q6H morphine: 1 mg, IV Push, Q3H, PRN: Pain (Moderate 4-6) oxyCODONE: 5 mg, Oral, Q6H, PRN: Pain (Moderate 4-6) phenylephrine injection 20 mg + NaCl 0.9% for drip 250 mL: TITRATE, IntraVENous potassium chloride 10 [...] Oral, BID, 60 Tab, 0 Refill(s), Medications (40) Active Scheduled: (17) #NaCl 0.9% *FLUSH* inj 10 mL 10 mL, IV Push, Q12H albuterol-ipratropium inh 3 mL 3 mL, Nebulized Inhalation, RT_Q6H aspirin 81 mg chew tab 81 mg 1 Tab, Oral, Daily atorvastatin 40 mg tab 40 mg 1 Tab, Oral, At Bedtime bumetanide 1 mg/4 mL inj 0.5 mg 2 mL, IV Push, Daily calcium gluconate + NaCl 0.9% 50 mL 1,000 mg 10 mL, IV Piggyback, 1-Time cefEPIME + NaCl [...] Problems Aortic valve stenosis / SNOMED CT 073233393 / Confirmed Arthritis of right knee / SNOMED CT 6878082228 / Confirmed At risk for sleep apnea / IMO 28633719 / Confirmed At risk for violence / IMO 46991183 / Confirmed Chronic anxiety / SNOMED CT 996690941 / Confirmed Back pain, chronic / SNOMED CT 321807075 / Confirmed Colorectal surgery / SNOMED CT 2214276340 / Confirmed Disorder of prostate / SNOMED CT 80216909 / Confirmed GERD - Gastro-esophageal reflux disease / SNOMED CT 2249293347 / Confirmed H/O peripheral neuropathy / SNOMED CT 284688902 / Confirmed feet tingle all the time HTN - Hypertension / SNOMED CT 0906351816 / Confirmed Hyperlipidemia / SNOMED CT 47869161 / Confirmed Hypertension / SNOMED CT 41442800 / Confirmed Aortic stenosis, severe / SNOMED CT 9899648217 / Confirmed Resolved: Cancer of colon / SNOMED CT 5484514095, Active Problems (14) Aortic stenosis, severe Aortic [...] H 115 (JAN 08 20:17) Mon HR 113 (JAN 09 14:00) 93 (JAN 09 03:49) 119 (DEC 15 19:00) Resp Rate H 29 (JAN 09 14:00) 16 (JAN 09 03:49) H 44 (JAN 08 23:30) SBP 124 (JAN 09 14:00) L 68 (JAN 08 23:06) H 154 (JAN 09 02:00) DBP 70 (JAN 09 14:00) L 40 (JAN 08 23:36) 80 (JAN 09 02:00) MAP 92 (JAN 09 14:00) 49 (JAN 08 23:36) 109 (JAN 09 02:00) SpO2 97 (JAN 09 14:00) L 92 (JAN 08 18:00) 100 (JAN 09 00:20) Intake & Output Totals Last 24 Hours (7a-7a) Intake (49 Events) Continuous Infusions (741.8125 mL) Medications (1048 mL) Enteral Feeding Amount (1200 mL) Tube Flush (240 mL) Output (13 Events) Spence Catheter (2002 mL) Input Total: 3229.8125 mL Output Total: 2002 mL Balance: 1227.8125 mL General: frail, elderly . Eye: Pupils [...] Labs (Last four charted values) WBC H 14.4 (DEC 16) H 16.3 (CESAR 15) H 15.3 (CESAR 14) H 15.8 (CESAR 13) HB L 8.9 (CESAR 16) L 10.0 (CESAR 15) L 9.4 (CESAR 14) L 9.2 (CESAR 13) HCT L 28.0 (CESAR 16) L 30.7 (CESAR 15) L 29.7 (CESAR 14) L 28.1 (CESAR 13) Plt H 439 (CESAR 16) H 410 (CESAR 15) 310 (CESAR 14) 253 (CESAR 13) Na 139 (CESAR 16) 139 (CESAR 15) 140 (CESAR 14) 138 (CESAR 13) K 4.0 (CESAR 16) 3.8 (CESAR 15) 4.0 (CESAR 14) 3.8 (CESAR 13) Cl 106 (CESAR 16) 102 (CESAR 15) 107 (CESAR 14) 106 (CESAR 13) CO2 30 (CESAR 16) 30 (CESAR 15) 31 (CESAR 14) 28 (CESAR 13) BUN H 38 (CESAR 16) H 31 (CESAR 15) H 24 (CESAR 14) 22 (CESAR 13) Cr 0.90 (CESAR 16) 0.80 (CESAR 15) 0.70 (CESAR 14) L 0.60 (CESAR 13) Glu R H 137 (CESAR 16) H 147 (CESAR 15) H 145 (CESAR 14) H 119 (CESAR 13) Ca L 8.1 (CESAR 16) 8.8 (CESAR 15) 8.5 (CESAR 14) L 8.2 (CESAR 13) Lactic 1.3 (CESAR 15) 1.0 (CESAR 13) [...] 55.9 (CESAR 03) AST H 49 (CESAR 16) H 40 (CESAR 15) 35 (CESAR 14) H 41 (CESAR 13) ALT 47 (CESAR 16) 48 (CESAR 15) 40 (CESAR 14) 49 (CESAR 13) ALK P 109 (CESAR 16) 109 (CESAR 15) 92 (CESAR 14) 80 (CESAR 13) T Bili 1.2 (CESAR 16) H 1.4 (CESAR 15) H 1.3 (CESAR 14) H 1.8 (CESAR 13) PTN L 6.2 (CESAR 16) 6.8 (ECSAR 15) L 6.1 (CESAR 14) L 6.1 (CESAR 13) ALB L 2.4 (CESAR 16) L 2.7 (CESAR 15) L 2.4 (CESAR 14) L 2.5 (CESAR 13) Troponin <0.015 (CESAR 01) . Blood Gases (Current Encounter/Past 24 Hours) No Blood Gas Results Found (Past 24 Hours) JAN 09 05:14 139 106 H 38 / H 137 4.0 30 0.90 \ JAN 09 05:14 \ L 8.9 / H 14.4 H 439 / L 28.0 \ Blood Gases (Current Encounter/Past 24 Hours) No Blood Gas Results Found (Past 24 Hours) Radiology Results (Last 48 hours) [id number] -- 12/27/2020 06:39 CR Chest 1 Vw [...] by Dr. Bebeto Avelar.Transcribed by Alyse Cabrera PA-C.Nessa have personally viewed, interpreted and dictated [...] effusion.Images reviewed, interpreted, and dictated by Dr. Chrisitano Gurrola.Transcribed by Mynor Moran(R).I have personally viewed, [...] s/p transfusion on 12/30 Leukocytosis ongoing but slightly improved Renal Metabolic acidosis due to lactic acid [...] -Mucinex 200mg Q6H -Encourage IS and FVD -Cardiology following -Stop Amio secondary to prolonged QTc, discussed with CTS and cardiology -Monitor need for continued diuresis- today, will dec Bumex dosing and reeval daily -Hemodynamics: meds being adjusted today given tachycardia however intermit hypotension nocturnally, has been on -Lisinopril 20mg BID and metoprolol 50mg Q6H, hydralazine 10mg Q6H PRN -CTS following -Neurology following -Seroquel 12.5mg HS PRN / melatonin for insomnia -Antibiotics: Zosyn for total of 8 days, Klebsiella PNA, stopped Zosyn and switched to Cefepime, continue -TF per dietary, speech following -Prophylaxis: Protonix, SCDs -Anticoagulation per CTS -CXR and labs in AM -Continue activity and pulmonary toilet, both encouraged. FULL CODE Prognosis - Guarded. I have personally evaluated the patient; history and review of systems, physical examination, laboratory studies and radiology data. I have actively directed the medical care, formulated diagnosis and plan and discussed it with our team. Patient requires a high complexity of decision making for assessment. Discussed with SHYAM ZAVALA. Electronically signed by Olinda Payne Conversion Industrial Manufacturing Technician Cerner at 11/10/2022 9:17 AM CDT documented in this encounter Plan of Treatment Not on file documented as of this encounter Visit Diagnoses Not on filedocumented in this encounter
--- OUTSIDE RECORDS SUMMARY | 2025-01-16 11:45 | XMS_ITS | Encounter Summary ---
Author Organization [employer] [facility] Address [address] [place] [address] Care Team Providers Care Girls Tennis Coach Name Role Phone Unavailable Primary Care Provider Unavailabl e Encounter Details Date Type Department Care Team (Late st Contact Info) Description 01/11/2021 Transcribed Document [facility] [address] [place] [address] ProviderMacrina MD [address] [place] [address] Social History Tobacco Use Types Packs/Day Years Used Date Smoking Tobacco: Never Assessed Sex and Gender Information Value Date Recorded Sex Assigned at Not on file Legal Sex Male 1:13 PM CDT Gender Identity Not on file Sexual Orientation Not on file documented as of this encounter Miscellaneous Notes * Cerner Conversion Note - Historical ProviderMD - 01/11/2021 4:00 AM CDT Height and Weight, Routine Entered On: 01/11/2021 5:19 EDT Performed On: 01/11/2021 4:00 EDT by Jaja Jernigan Non Emp RN Height and Weight, Routine Routine Weight Source : Bed scale Routine Weight Entry Format : Metric Routine Weight, Kilograms : 62.8 kg(Converted to: 138 lb 7 oz) Routine Weight Calculation : 62.8 kg Height Source : Measured Height Entry Format : [place] Height, Feet : 0 ft Height, Inches : 67.75 Inch Clinical Height : 172.09 cm Body Surface Area (BSA), Routine : 1.74 m2 Body Mass Index (BMI), Routine : 21.21 kg/m2 Jaja Jernigan Non Emp RN - 01/11/2021 5:19 EDT Electronically signed by Olinda Payne Conversion Manufacturing Engineering Manager Guanaco at 11/10/2022 9:25 AM CDT documented in this encounter Plan of Treatment Not on file documented as of this encounter Visit Diagnoses Not on filedocumented in this encounter
--- OUTSIDE RECORDS SUMMARY | 2025-01-16 11:46 | XMS_ITS | Encounter Summary ---
Author Organization [facility] Address [address] [place] [address] Care Team Providers Care Reconstructive Dentist Name Role Phone Unavailable Primary Care Provider Unavailabl e Encounter Details Date Type Department Care Team (Late st Contact Info) Description 01/01/2021 Transcribed Document [facility] [place] [facility] [place] [address] ProviderMacrina MD [address] [place], [place] [phone] Social History Tobacco Use Types Packs/Day Years Used Date Smoking Tobacco: Never Assessed Sex and Gender Information Value Date Recorded Sex Assigned at Not on file Legal Sex Male 1:13 PM CDT Gender Identity Not on file Sexual Orientation Not on file documented as of this encounter Miscellaneous Notes * Cerner Conversion Note - Macrina Cordova MD - 01/01/2021 9:45 AM CDT Patient: JOSE ADORNO Age: [...] then stopped due to increased respiratory effort. ICU day: 6 Vent day: 5, extubated 12/31 TLDL 12/27 [...] 0.9% for drip 100 mL: Titrate, IntraVENous etomidate: 40 mg, IV Push, 1-Time fentaNYL injection 1,000 mcg + NaCl 0.9% Premix Diluent 100 mL: Titrate, IntraVENous fentaNYL: 100 mcg, IV Push, 1-Time gabapentin: 300 mg, Oral, Daily gabapentin: 600 [...] IV Piggyback, Q1H, PRN: Other (See Comment) rocuronium: 50 mg, IV Push, 1-Time sodium bicarbonate: 100 mEq, IV Push, 1-Time, [...] Tab, 0 Refill(s), Medications (39) Active Scheduled: (18) #NaCl 0.9% *FLUSH* inj [...] 2 Gram 50 mL, IV Piggyback, 1-Time etomidate 40 mg/20 mL inj 40 mg 20 mL, IV Push, 1-Time fentaNYL 100 mcg/2 mL inj 100 mcg 2 mL, IV Push, 1-Time gabapentin 300 mg [...] 100 mL 3.375 Gram, IV Piggyback, Q6H rocuronium 50 mg/5 mL inj 50 mg 5 mL, IV Push, 1-Time senna/docusate 8.6/50 mg tab 1 Tab, Oral, [...] Problems Aortic valve stenosis / SNOMED CT 220369244 / Confirmed Arthritis of right knee / SNOMED CT 1961856147 / Confirmed At risk for sleep apnea / IMO 81849297 / Confirmed Chronic anxiety / SNOMED CT 445791949 / Confirmed Back pain, chronic / SNOMED CT 344798794 / Confirmed Colorectal surgery / SNOMED CT 4896221984 / Confirmed Disorder of prostate / SNOMED CT 18666171 / Confirmed GERD - Gastro-esophageal reflux disease / SNOMED CT 3239364937 / Confirmed H/O peripheral neuropathy / SNOMED CT 981407681 / Confirmed feet tingle all the time HTN - Hypertension / SNOMED CT 8389093052 / Confirmed Hyperlipidemia / SNOMED CT 90466047 / Confirmed Hypertension / SNOMED CT 32312943 / Confirmed Aortic stenosis, severe / SNOMED CT 1307461097 / Confirmed Resolved: Cancer of colon / SNOMED CT 6580418870, Active Problems (13) Aortic stenosis, severe Aortic valve stenosis Arthritis of right knee At risk for sleep apnea Back pain, chronic Chronic anxiety Colorectal surgery Disorder of prostate GERD - Gastro-esophageal reflux disease H/O peripheral neuropathy HTN - Hypertension Hyperlipidemia Hypertension Physical Examination VS/Measurements Vitals Signs (last 24 hrs) Last Charted Minimum Maximum Apical HR 93 (JAN 01 08:03) 85 (DEC 31 20:19) 93 (JAN 01 08:03) Mon HR 76 (JAN 01 08:58) 75 (DEC 31 10:30) 94 (JAN 01 05:00) Resp Rate H 24 (JAN 01 08:58) 18 (DEC 31 10:30) H 48 (JAN 01 05:46) SBP 136 (JAN 01 08:00) 125 (DEC 31 12:30) H 179 (JAN 01 03:00) DBP 69 (JAN 01 08:00) 61 (DEC 31 12:30) 86 (JAN 01 03:00) MAP 98 (JAN 01 08:00) 87 (DEC 31 12:30) 123 (JAN 01 03:00) SpO2 94 (JAN 01 08:58) L 89 (DEC 31 14:30) 100 (DEC 31 21:00) Intake & Output Totals Last 24 Hours (7a-7a) Intake (40 Events) Continuous Infusions (81.7281 mL) Medications (1048.76 mL) Other Intake (150 mL) Output (32 Events) Chest Tube Output: (640 mL) Spence Catheter (4070 mL) Input Total: 1280.4881 mL Output Total: 4710 mL Balance: -3429.5119 mL General: Mild distress, Bipap 100%. Sedated with Precedex. Eye: Pupils are equal, round and reactive to light, Normal conjunctiva. HENT: Normocephalic, Oral ET tube. Mouth: Oral mucosa ( Dry ). Neck: Supple, No lymphadenopathy. Respiratory: Breath sounds are equal, Coarse breath sounds bilaterally with diminished breath sounds in bilateral bases.. Respirations: Tachypneic. Support: Chest tube ( X2 ). Cardiovascular: Normal rate, Regular rhythm, No edema. Gastrointestinal: Soft, Non-distended. Bowel sounds: All four quadrants, Diminished. Support: Gastric tube ( Nasal ). Genitourinary: Support: Urinary catheter ( Indwelling ). Musculoskeletal: No swelling, No deformity. Integumentary: Warm, Dry. Integumentary exam: Pale. Neurologic: Sedated with Precedex. Arouses to voice and follows commands on left side. Very limited movement noted from R side right lower, and none in right upper ext. Psychiatric: Unable to assess. Review / Management Results review: Labs (Last four charted values) WBC H 11.7 (JAN 01) H 13.4 (DEC 31) H 13.1 (DEC 30) H 12.8 (DEC 06) HB L 8.7 (DEC 08) L 8.8 (DEC 07) L 8.4 (DEC 07) L 8.6 (DEC 06) HCT L 26.5 (DEC 08) L 26.2 (DEC 07) L 25.8 (DEC 07) L 26.1 (DEC 06) Plt L 146 (DEC 08) L 108 (DEC 07) L 60 (DEC 06) L 70 (DEC 06) Na 143 (DEC 08) 142 (DEC 31) 141 (DEC 31) 142 (CESAR 07) K 3.6 (CESAR 08) L 3.3 (CESAR 07) 3.8 (CESAR 07) 3.8 (CESAR 07) Cl 108 (CESAR 08) 107 (CESAR 07) 108 (CESAR 07) 107 (CESAR 07) CO2 28 (CESAR 08) 27 (CESAR 07) 28 (CESAR 07) 28 (CESAR 07) BUN H 26 (CESAR 08) H 25 (CESAR 07) H 28 (CESAR 07) H 29 (CESAR 07) Cr 0.70 (CESAR 08) 0.80 (CESAR 07) 0.70 (CESAR 07) 0.70 (CESAR 07) Glu R 80 (CESAR 08) 86 (CESAR 07) 99 (CESAR 07) H 119 (CESAR 07) Ca L 8.3 (CESAR 08) L 8.0 (CESAR 07) L 8.3 (CESAR 07) L 8.2 (CESAR 07) Lactic 1.2 (CESAR 07) 1.4 [...] 03) H 55.9 (CESAR 03) AST H 50 (CESAR 08) H 78 (CESAR 06) H 125 (CESAR 05) H 141 (CESAR 04) ALT 33 (CESAR 08) 35 (CESAR 06) 58 (CESAR 05) H 85 (CESAR 04) ALK P 71 (CESAR 08) 64 (CESAR 06) 55 (CESAR 05) 53 (CESAR 04) T Bili H 2.3 (CESAR 08) H 2.2 (CESAR 06) H 1.3 (CESAR 05) H 2.2 (CESAR 04) PTN L 5.8 (CESAR 08) L 5.2 (CESAR 06) L 4.6 (CESAR 05) L 4.8 (CESAR 04) ALB L 2.5 (CESAR 08) L 2.4 (CESAR 06) L 2.4 (CESAR 05) L 2.7 (CESAR 04) Troponin <0.015 (CESAR 01) . Blood Gases (Current Encounter/Past 24 Hours) pH Art 7.50 HI 01/01/2021 04:52 pCO2 Art 34.6 LOW 01/01/2021 04:52 pO2 Art 91.7 01/01/2021 04:52 HCO3 Art 26.8 HI 01/01/2021 04:52 BE Art 3.8 HI 01/01/2021 04:52 sO2 Art 97.6 01/01/2021 04:52 tHb Art 15.0 01/01/2021 04:52 FHHb 2.4 NA 01/01/2021 04:52 ctO2 20.4 NA 01/01/2021 04:52 FIO2 Art 100 NA 01/01/2021 04:52 Delivery Device Type Art NIV NA 01/01/2021 04:52 Temperature, F Art 98.6 NA 01/01/2021 04:52 Art Blood Gas (ABG) Site Left Brachial NA 01/01/2021 04:52 Acceptable Grey's Test Art Non-Applicable NA 01/01/2021 04:52 Ventilator Mode Art N/A NA 01/01/2021 04:52 Set Rate Art 18.0 NA 01/01/2021 04:52 Respiratory Rate Art 24.0 NA 01/01/2021 04:52 Comment Art niv 14/10 NA 01/01/2021 04:52 ABG Num of Draw Attempts 1 01/01/2021 04:52 PaO2/FiO2 calculated 92 NA 01/01/2021 04:52 JAN 01 01:51 143 108 H 26 / 80 3.6 28 0.70 \ JAN 01 01:51 \ L 8.7 / H 11.7 L 146 / L 26.5 \ Blood Gases (Current Encounter/Past 24 Hours) pH Art 7.50 HI 01/01/2021 04:52 pCO2 Art 34.6 LOW 01/01/2021 04:52 pO2 Art 91.7 01/01/2021 04:52 HCO3 Art 26.8 HI 01/01/2021 04:52 BE Art 3.8 HI 01/01/2021 04:52 sO2 Art 97.6 01/01/2021 04:52 tHb Art 15.0 01/01/2021 04:52 FHHb 2.4 NA 01/01/2021 04:52 ctO2 20.4 NA 01/01/2021 04:52 FIO2 Art 100 NA 01/01/2021 04:52 Delivery Device Type Art NIV NA 01/01/2021 04:52 Temperature, F Art 98.6 NA 01/01/2021 04:52 Art Blood Gas (ABG) Site Left Brachial NA 01/01/2021 04:52 Acceptable Grey's Test Art Non-Applicable NA 01/01/2021 04:52 Ventilator Mode Art N/A NA 01/01/2021 04:52 Set Rate Art 18.0 NA 01/01/2021 04:52 Respiratory Rate Art 24.0 NA 01/01/2021 04:52 Comment Art niv 14/10 NA 01/01/2021 04:52 ABG Num of Draw Attempts 1 NA 01/01/2021 04:52 PaO2/FiO2 calculated 92 NA 01/01/2021 04:52 Radiology Results (Last 48 hours) [id number] -- 12/27/2020 06:39 CR Chest 1 Vw Portable (12/31/2020 04:24) [...] Dr. Sonny Alva.Transcribed by [place] Mohan PA-C, R.T. (N), C [...] Dr. Sonny Alva.Transcribed by [place] Mohan PA-C, R.T. (N), Kieran [...] dictated by Dr. Christiano Gurrola.Transcribed by Mynor Moran(R). 12/14/2020 PFTS SPIROMETRY: 1. FVC 3.77 L, [...] team, including critical care team, CCRN, RT., Manager Strategic Alliances , case management and clinical pharmacist. I [...] spirometry in November 2020 Never a smoker Extubated 12/31 Cardiac Severe s/p TAVR with questionable tear [...] resolved ID Leukocytosis - improving COVID-19 negative Endocrine Glycemic control Neuro Sedated with Precedex, off Vent. acute encephalopathy physical deconditioning right upper ext flaccid and right lower exts weakness : possible CVA however need Neuro eval if no improvement Plan: Proceed with intubation Duonebs prn Sedation: Precedex, Fentanyl for goal RASS -1 Consult Neuro MRI brain Hemodynamics: Cardene CTS following -CT management Cardiology following -Stop Amio secondary to prolonged QTc, discussed with CTS and cardiology Pneumonia panel pending Zosyn x5 days for possible aspiration LLL infiltrate Calcium gluconate 2gm IV x1 TF per dietary, Corpak in place Prophylaxis: Protonix, SCDs -Anticoagulation per CTS CXR and labs in AM Full code Prognosis is guarded high risk for reintubation Disposition intensive care unit documented in this encounter Plan of Treatment Not on file documented as of this encounter Visit Diagnoses Not on filedocumented in this encounter
--- OUTSIDE RECORDS SUMMARY | 2025-01-16 11:46 | XMS_ITS | Encounter Summary ---
Author [facility] Address [address] [place] [address] Care Team Providers Care Banquet Server Name Role Phone Unavailable Primary Care Provider Unavailabl e Encounter Details Date Type Department Care Team (Late st Contact Info) Description 01/05/2021 Transcribed Document [facility] Family Medicine [address] [place] [address] ProviderMacrina MD [address] [place], [place] [address] Social History Tobacco Use Types Packs/Day Years Used Date Smoking Tobacco: Never Assessed Sex and Gender Information Value Date Recorded Sex Assigned at Not on file Legal Sex Male 1:13 PM CDT Gender Identity Not on file Sexual Orientation Not on file documented as of this encounter Miscellaneous Notes * Cerner Conversion Note - Historical ProviderMD - 01/05/2021 12:01 PM CDT Attempt to Treat, PT Entered On: 01/05/2021 12:02 EDT Performed On: 01/05/2021 12:01 EDT by ARNOLDO SMALL PT Attempt to Treat Unable to Treat Due To : Patient Refusal Inability to Treat Comment : Pt refused PTx today but says he will mobilize tomorrow. Notification : RN aware. ARNOLDO SMALL, PT - 01/05/2021 12:01 EDT documented in this encounter Plan of Treatment Not on file documented as of this encounter Visit Diagnoses Not on filedocumented in this encounter
--- OUTSIDE RECORDS SUMMARY | 2025-01-16 11:46 | XMS_ITS | Encounter Summary ---
Author Organization [facility] [employer] [facility] Address [address] [place] [address] Care Team Providers Care Lead Sewage Plant Operator Name Role Phone Unavailable Primary Care Provider Unavailabl e Encounter Details Date Type Department Care Team (Late st Contact Info) Description 01/03/[address] [facility] [place] Family Medicine [address] [place] [address] ProviderMacrina MD [address] [place], [place] [phone] Social History Tobacco Use Types Packs/Day Years Used Date Smoking Tobacco: Never Assessed Sex and Gender Information Value Date Recorded Sex Assigned at Not on file Legal Sex Male 1:13 PM CDT Gender Identity Not on file Sexual Orientation Not on file documented as of this encounter Miscellaneous Notes * Cerner Conversion Note - Macrina ProviderMD - 01/03/2021 3:00 PM CDT On Going Discharge Planning Entered On: 01/03/2021 15:03 EDT Performed On: 01/03/2021 15:00 EDT by SOPHY RM Rn-Glove FormerBulk Fluids Handler Progress Note Discharge Arrangements : Patient Post-Acute [...] Meeting Medical Necessity : Yes SOPHY RM Rn-Glove Former - 01/03/2021 15:00 EDT Narrative Progress Note Narrative Progress Note : HD#7; ELOS 3; LRR; BOOST 6; POD#7 - Elective TAVR/LVentTear/CardiacTamponade/Arrest - intubated fi02 40/peep 8; SBT x 2 hr; Fent/Precedex gtt; Corpak/TF; Humza CT in place; Neurology following - MRI diffuse scattered bilateral infarcts; pt w/improvement in movement of R side; PT/OT evaluations when extubated; DCP TBD - likely rehab. Historical Progress Note : HD#6; ELOS 3; LRR; BOOST 6; POD #6 - Electiv TAVR/L Vent Tear/Cardiac Tamponode/Arrest - reintubated 01/01; fi02 40; Levo/Fent/Precedex gtt; wean sedation - on SBT 2hr TID; T=99.9; Dr. Navarro states during MDR that pt's spouse aware may need trach/peg; DCP TBD pending progress. SOPHY RM Rn-Glove Former - 01/02/21 14:55:12 HD#5; ELOS 3; LRR; BOOST 6; POD #5 - Elective TAVR/L Ventrial Tear/Cardiac Tamponode; extubated on 6/7 required reintubation today fi02 60/peep 8; Precedex/Fent gtt; Corpak/TF; IV Zosyn; CT draining; T=100; DCP TBD pending progress; will need therapy evals when appropriate. SOPHY RM Rn-Glove Former - 01/01/21 14:47:57 HD#4; ELOS 3; LRR; POD#4 - Electiv TAVR; L Ventrical Tear; intubated fi02 50; Cardene gtt; Corpak to be placed and TF initiated; SBT today; following commands; Head MRI ordered; possible extubation post MRI; no movement noted on R side; will need PT/OT evaluations when extubated; DCP pending progress - likely rehab. SOPHY RM Rn-Glove Former - 12/31/20 14:58:43 DCP TBD - pending progress; [facility] SOPHY RM Rn-Glove Former - 12/28/20 12:42:03 SOPHY RM Rn-Glove Former - 01/03/2021 15:00 EDT documented in this encounter Plan of Treatment Not on file documented as of this encounter Visit Diagnoses Not on filedocumented in this encounter
--- OUTSIDE RECORDS SUMMARY | 2025-01-16 11:46 | XMS_ITS | Encounter Summary ---
Author Organization [facility] Address [address] [place] [address] Care Team Providers Care Preanalytics Team Lead Name Role Phone Unavailable Primary Care Provider Unavailabl e Encounter Details Date Type Department Care Team (Late st Contact Info) Description 12/28/2020 Transcribed Document [facility] [place] [address] [place] [address] ProviderMacrina MD [address] [place] [address] Social History Tobacco Use Types Packs/Day Years Used Date Smoking Tobacco: Never Assessed Sex and Gender Information Value Date Recorded Sex Assigned at Not on file Legal Sex Male 1:13 PM CDT Gender Identity Not on file Sexual Orientation Not on file documented as of this encounter Miscellaneous Notes * Cerner Conversion Note - Historical ProviderMD - 12/28/2020 5:00 AM CDT Height and Weight, Routine Entered On: 12/28/2020 5:23 EDT Performed On: 12/28/2020 5:00 EDT by Belem Lawson RN Height and Weight, Routine Routine Weight Source : Bed scale Routine Weight Entry Format : Metric Routine Weight, Kilograms : 77.3 kg(Converted to: 170 lb 7 oz) Routine Weight Calculation : 77.3 kg Height Source : Measured Height Entry Format : [place] Height, Feet : 0 ft Height, Inches : 67.75 Inch Clinical Height : 172.09 cm Body Surface Area (BSA), Routine : 1.9 m2 Body Mass Index (BMI), Routine : 26.1 kg/m2 Belem Lawson RN - 12/28/2020 5:23 EDT documented in this encounter Plan of Treatment Not on file documented as of this encounter Visit Diagnoses Not on filedocumented in this encounter
--- OUTSIDE RECORDS SUMMARY | 2025-01-16 11:46 | XMS_ITS | Encounter Summary ---
Author Organization [facility] Address [address] [place] [address] Care Team Providers Care Sour Bleaching Pleater Name Role Phone Unavailable Primary Care Provider Unavailabl e Encounter Details Date Type Department Care Team (Late st Contact Info) Description 01/01/2021 Transcribed Document [facility] [facility] [place] [address] [place] [address] ProviderMacrina MD [address] [id number] Social History Tobacco Use Types Packs/Day Years Used Date Smoking Tobacco: Never Assessed Sex and Gender Information Value Date Recorded Sex Assigned at Not on file Legal Sex Male 1:13 PM CDT Gender Identity Not on file Sexual Orientation Not on file documented as of this encounter Miscellaneous Notes * Cerner Conversion Note - Macrina ProviderMD - 01/01/2021 2:45 PM CDT On Going Discharge Planning Entered On: 01/01/2021 14:47 EDT Performed On: 01/01/2021 14:45 EDT by SOPHY RM Rn-Telecasting TechnicianSenior Net Architect Progress Note Discharge Arrangements : Patient Post-Acute [...] : Clinical Condition of Patient SOPHY RM Rn-Telecasting Technician - 01/01/2021 14:45 EDT Narrative Progress Note Narrative Progress Note : HD#5; ELOS 3; LRR; BOOST 6; POD #5 - Elective TAVR/L Ventrial Tear/Cardiac Tamponode; extubated on 12/31 required reintubation today fi02 60/peep 8; Precedex/Fent gtt; Corpak/TF; IV Zosyn; CT draining; T=100; DCP TBD pending progress; will need therapy evals when appropriate. Historical Progress Note : HD#4; ELOS 3; LRR; POD#4 - Electiv TAVR; L Ventrical Tear; intubated fi02 50; Cardene gtt; Corpak to be placed and TF initiated; SBT today; following commands; Head MRI ordered; possible extubation post MRI; no movement noted on R side; will need PT/OT evaluations when extubated; DCP pending progress - likely rehab. SOPHY RM Rn-Telecasting Technician - 12/31/20 14:58:43 DCP TBD - pending progress; OP Cardiac Rehab referral placed thru [facility]. SOPHY RM Rn-Telecasting Technician - 12/28/20 12:42:03 SOPHY RM Rn-Telecasting Technician - 01/01/2021 14:45 EDT documented in this encounter Plan of Treatment Not on file documented as of this encounter Visit Diagnoses Not on filedocumented in this encounter
--- OUTSIDE RECORDS SUMMARY | 2025-01-16 11:46 | XMS_ITS | Encounter Summary ---
Author Organization [facility] Address [address] [place] [address] Care Team Providers Care Fire Sprinkler Installer Name Role Phone Unavailable Primary Care Provider Unavailabl e Encounter Details Date Type Department Care Team (Late st Contact Info) Description 12/28/2020 Transcribed Document [facility] [place] Family Medicine [address] [place] [address] ProviderMacrina MD [address] [place], [place] [id number] Social History Tobacco Use Types Packs/Day Years Used Date Smoking Tobacco: Never Assessed Sex and Gender Information Value Date Recorded Sex Assigned at Not on file Legal Sex Male 1:13 PM CDT Gender Identity Not on file Sexual Orientation Not on file documented as of this encounter Miscellaneous Notes * Cerner Conversion Note - Historical ProviderMD - 12/28/2020 9:22 AM CDT Attempt to Treat, PT Entered On: 12/28/2020 11:27 EDT Performed On: 12/28/2020 9:22 EDT by FRAN SABA PT Attempt to Treat Unable to Treat Due To : Acuity of Illness, Patient on hold Inability to Treat Comment : per discussion with RN , Pt is still INTUBATED and they are working on extubation hopefully today will follow Notification : RN(Deborah)/PTx FRAN SABA PT - 12/28/2020 11:26 EDT documented in this encounter Plan of Treatment Not on file documented as of this encounter Visit Diagnoses Not on filedocumented in this encounter
--- OUTSIDE RECORDS SUMMARY | 2025-01-16 11:46 | XMS_ITS | Encounter Summary ---
Author Organization [employer] [facility] Address [address] [place] [address] Care Team Providers Care Farmer Tree Fruit [employer] Nut [employer]ps Name Role Phone Unavailable Primary Care Provider Unavailabl e Encounter Details Date Type Department Care Team (Late st Contact Info) Description 12/27/2020 Transcribed Document [facility] [place] Family Medicine [address] [place] [address] ProviderMacrina MD [address] [place] [address] Social History Tobacco Use Types Packs/Day Years Used Date Smoking Tobacco: Never Assessed Sex and Gender Information Value Date Recorded Sex Assigned at Not on file Legal Sex Male 1:13 PM CDT Gender Identity Not on file Sexual Orientation Not on file documented as of this encounter Miscellaneous Notes * Cerner Conversion Note - Historical ProviderMD - 12/27/2020 6:39 AM CDT Admission History, Adult Entered On: 12/27/2020 19:14 EDT Performed On: 12/27/2020 6:39 EDT by Belem Lawson RN Advance Directive Patient has Advance Directive *Q : No, patient refuses Advance Directive information Belem Lawson RN - 12/27/2020 19:14 EDT Anesthesia/Transfusion History Family History of Anesthesia Reaction : No prior transfusion(s) Blood Transfusion Acceptable to Patient : Yes Transfusion History : Prior anesthesia without reaction Family History of Anesthesia Reaction : None Manny Spencer RN - 12/27/2020 22:10 EDT Functional Assessment Living Situation : Home Patient Lives With : Spouse Current Home Treatments : Blood glucose monitoring Manny Spencer RN - 12/27/2020 22:10 EDT General Info Support Person/Pt Rep Name : Michaela Adorno - Support Person/Pt Rep Contact Information : [phone] Want Family/Rep/Phys Notified of Admit : No Emergency Contact #1 : michaela Adorno Emergency Contact #1 Emergency Contact #1 Relationship : Emergency Contact #2 : Michaela Sandrahome phone Emergency Contact #2 Emergency Contact #2 Relationship : Information Obtained From : Patient Primary Language : Stateless Communication Barrier : None Display Director Needed : No Belem Lawson RN - 12/27/2020 19:14 EDT Fall Risk Scales ABCs Fall Injury Risk Identification : Age, Bones, Coagulation, Surgery ABC Fall Injury Risk : Moderate to high injury risk ROMERO Hx Falls Immediate/Within 3 Months : No Romero Secondary Diagnosis : Yes ROMERO Use of Ambulatory Aid : Bed rest/Nurse assist ROMERO IV Therapy or IV Access : Yes Romero Gait/Transferring : Normal, bedrest, immobile Romero Mental Status : Oriented to own ability Romero Fall Risk Score : 35 ROMERO Fall Scale Risk Level : 25-45 Medium Risk [place] Fall Interventions : Adequate lighting, Assistive devices within reach, Bed in low position, Call device within reach, Fall prevention handout/education per facility policy, Frequent orientation to call device, Frequent orientation to surroundings, Hourly comfort/safety rounds, Non-slip footwear, Personal items within reach, Reinforced to call for assistance before getting out of bed, Room free of clutter/spills, Upper side-rails up, Wheels locked, Wires/Cords secured Barriers to Learning : None evident Manny Spencer RN - 12/27/2020 22:10 EDT Health Histories Smoking Status : Never (less than 100 in lifetime; none in last 30 days) Smokeless Tobacco Status : Never Manny Spencer RN - 12/27/2020 22:10 EDT Social History (As Of: 12/27/2020 22:16:24 EDT) Tobacco: Never (less than 100 in lifetime) Smoking Status. (Last Updated: 11/15/2019 07:26:30 EDT by ASHLEY STAFFORD, RN) Alcohol: Alcohol Use History No. (Last Updated: 11/15/2019 07:26:36 EDT by ASHLEY STAFFORD, RN) Substance Abuse: Drug Use Hx: No. Use in Last 12 Months: No. (Last Updated: 12/25/2020 10:40:25 EDT by TONY BRIDGES RN) Height and Weight, Clinical Dosing Height Source : Measured Height Entry Format : [place] Height, Feet : 0 ft(Converted to: 0 cm, 0 Inch) Height, Inches : 67.75 Inch(Converted to: 5 ft 8 Inch, 172.08 cm) Clinical Height : 172.09 cm Weight Source : Standing scale Weight Entry Format : [place] Clinical Dosing Weight : 65.14 kg Weight, Pounds : 143 lb Weight, Ounces : 5 oz Body Surface Area (BSA) : 1.77 m2 Body Mass Index : 22 kg/m2 [place] Body Weight : 67 kg Manny Spencer RN - 12/27/2020 22:10 EDT Infectious Disease History Has the patient ever been tested for COVID-19? : No, Screening today for COVID-19 Date of COVID-19 test known? : Yes Date of COVID-19 Test : 12/25/2020 EDT Does patient have symptoms of COVID-19? : No COVID19 Screening : No Experiencing Infectious Disease Symptoms : No symptoms Physical contact outside [place] in the last 30 days : No Infectious Disease History : Mumps Tuberculosis Symptoms : None Manny Spencer RN - 12/27/2020 22:10 EDT Influenza Vaccine Asmt, Adult Previous Vaccines from Immunization Schedule : No qualifying data available. Influenza Immunization, Current Season : Yes Manny Spencer RN - 12/27/2020 22:10 EDT Pneumococcal Vaccine Previous Vaccines from Immunization Schedule : No qualifying data available. Pneumonia Immunization Received : Yes Manny Spencer RN - 12/27/2020 22:10 EDT Order Details Order Detail : N/A Patient Needs Meds Crushed/Liquid : Yes Meds Administered Via Tube : Yes Manny Spencer RN - 12/27/2020 22:10 EDT Nutrition History Eating Poorly Due to Decreased Appetite : No Unplanned Weight Loss in Past 3-6 Months : No Malnutrition Screening Tool Total(mal) : 0 Malnutrition Screening Tool Risk Level : Patient not at risk Manny Spencer RN - 12/27/2020 22:10 EDT [place] Suicide Severity Rating Scale (C-SSRS) CSSRS Past Month Wish to be : No CSSRS Past Month Suicidal Thoughts : No CSSRS Lifetime Suicide Behavior : No Suicide Severity Rating Score : 0 Suicide Severity Rating : No Additional Care Required at this time Manny Spencer RN - 12/27/2020 22:10 EDT Psychosocial History Does Someone Depend on You for Care? : No Do You Have a History of the Following? : Anxiety Currently in Unsafe Situation : No Manny Spencer RN - 12/27/2020 22:10 EDT Sleep Apnea Risk Assmt Hx of [...] Sleep Apnea Risk Level Score : 4 Manny Spencer RN - 12/27/2020 22:10 EDT Valuables and Belongings Valuables and Belongings : No clothing, No comfort items, No jewelry, No personal devices, No personal items, No assistive devices, No respiratory devices, No medications Manny Spencer RN - 12/27/2020 22:10 EDT Electronically signed by Olinda Payne Conversion Information Technology Teacher Cerner at 11/10/2022 9:24 AM CDT documented in this encounter Plan of Treatment Not on file documented as of this encounter Visit Diagnoses Not on filedocumented in this encounter
--- OUTSIDE RECORDS SUMMARY | 2025-01-16 11:46 | XMS_ITS | Encounter Summary ---
Author Organization [facility] Address [address] [place] [address] Care Team Providers Care Manufacturing Maintenance Mechanic Name Role Phone Unavailable Primary Care Provider Unavailabl e Encounter Details Date Type Department Care Team (Late st Contact Info) Description 12/28/2020 Transcribed Document [facility] [place] [facility] [place] [address] ProviderMacrina MD [address], [place] [id number] Social History Tobacco Use Types Packs/Day Years Used Date Smoking Tobacco: Never Assessed Sex and Gender Information Value Date Recorded Sex Assigned at Not on file Legal Sex Male 1:13 PM CDT Gender Identity Not on file Sexual Orientation Not on file documented as of this encounter Miscellaneous Notes * Cerner Conversion Note - Macrina Cordova MD - 12/28/2020 10:19 AM CDT Patient: JOSE ADORNO Age: 80 years Sex: Male : 1940 Associated Diagnoses: None Author: SAAD MCHUGH APRN Referring physician: Dr. Gomez Reason for [...] and sedated. TV 440, AC16, FIO2 70%, Peep 5. Will attempt to lift sedation for extubation. [...] mg, Oral, Q6H, PRN: Pain (Moderate 4-6) pantoprazole: 40 mg, Oral, BID phenylephrine 20 mg + Sodium Chloride 0.9% [...] 1 Tab, Oral, BID, 0 Refill(s), Medications (49) Active Scheduled: (16) #NaCl 0.9% *FLUSH* inj [...] 12.5 mg 0.5 Tab, Oral, BID pantoprazole EC 40 mg tab 40 mg 1 Tab, Oral, BID senna 8.6 mg tab 17.2 mg 2 Tab, Oral, At Bedtime senna/docusate 8.6/50 mg tab 1 Tab, Oral, BID Continuous: (11) dexmedeTOMIDine 400 mcg + NaCl 0.9% TITRATE 100 mL 100 mL, IntraVENous EPINEPHrine 10 mg + NaCl 0.9% T [...] Problems Aortic valve stenosis / SNOMED CT 551994539 / Confirmed Arthritis of right knee / SNOMED CT 1199088234 / Confirmed At risk for sleep apnea / IMO 04995977 / Confirmed Chronic anxiety / SNOMED CT 866099778 / Confirmed Back pain, chronic / SNOMED CT 172394757 / Confirmed Colorectal surgery / SNOMED CT 6737117432 / Confirmed Disorder of prostate / SNOMED CT 36121961 / Confirmed GERD - Gastro-esophageal reflux disease / SNOMED CT 1854082626 / Confirmed H/O peripheral neuropathy / SNOMED CT 071662284 / Confirmed feet tingle all the time HTN - Hypertension / SNOMED CT 9190359103 / Confirmed Hyperlipidemia / SNOMED CT 38508536 / Confirmed Hypertension / SNOMED CT 33745311 / Confirmed Aortic stenosis, severe / SNOMED CT 8232360108 / Confirmed Resolved: Cancer of colon / SNOMED CT 0073798302, Active Problems (13) Aortic stenosis, severe Aortic [...] H 124 (DEC 27 13:53) Mon HR 64 (DEC 28 10:00) 60 (DEC 27 20:45) 133 (DEC 27 13:45) Resp Rate 16 (DEC 28 10:00) L 4 (DEC 27 18:15) H 27 (DEC 27 15:30) SBP 91 (DEC 28 10:00) L 75 (DEC 27 18:45) H 175 (DEC 27 15:30) DBP L 50 (DEC 28 10:00) L 50 (DEC 27 18:45) H 93 (DEC 27 13:30) MAP 66 (DEC 28 10:00) 40 (DEC 27 10:26) 144 (DEC 27 15:30) SpO2 95 (DEC 28 10:00) L 92 (DEC 27 10:26) 100 (DEC 27 12:45) General: Sedated on mechanical ventilator. RASS -4. [...] H 17.9 (DEC 27) HB L 8.3 (CESAR 04) L 8.2 (CESAR 04) L 7.9 (CESAR 03) L 9.1 (CESAR 03) HCT L 23.8 (CESAR 04) L 23.7 (CESAR 04) L 22.8 (CESAR 03) L 26.5 (CESAR 03) Plt L 124 (CESAR 04) 174 (CESAR 03) L 93 (CESAR 03) L 121 (CESAR 03) Na H 151 (CESAR 04) H 150 (CESAR 03) 146 (CESAR 03) 141 (CESAR 01) K 4.2 (CESAR 04) L 3.2 (CESAR 04) 4.0 (CESAR 03) L 3.3 (CESAR 03) Cl H 118 (CESAR 04) [...] 8.3 (CESAR 03) 9.0 (CESAR 01) Lactic 1.7 (CESAR 04) C 5.0 (CESAR 03) [...] 1.5 (CESAR 03) 1.0 (CESAR 03) 1.0 (DEC 25) PTN L 4.8 (DEC 28) L 4.3 (DEC 27) L 4.6 (DEC 27) 6.6 (DEC 25) ALB L 2.7 (DEC 28) L 2.6 (DEC 27) L 2.6 (DEC 27) 3.4 (DEC 25) [...] 7.365 12/27/2020 17:54 pCO2 Art POC 54.2 HI 12/27/2020 22:07 pO2 Art POC 141.0 HI 12/27/2020 22:07 HCO3 Art POC 31.0 HI 12/27/2020 22:05 tCO2 Art POC 33.0 HI 12/27/2020 22:06 BE Art POC 6.0 HI 12/27/2020 22:06 sO2 Art POC 99.0 HI 12/27/2020 22:07 ABG Num of Draw Attempts 1 NA 12/28/2020 04:43 PaO2/FiO2 calculated 313 NA 12/28/2020 04:43 Radiology Results (Last 48 hours) [id number] -- 12/27/2020 06:39 CR Chest 1 Vw [...] dictated by Dr. Karina Crowley.Transcribed by Mynor Moran(Sherron).I have personally viewed, interpreted [...] AC 18, TV 440, PEEP 5, FiO2 70% Chest x-ray - rib fracture noted - continue to follow chest x-rays Sedation: Fentanyl/Propofol RASS -0-1 drip for goal RASS -1 Daily SAT/SBT trial--Hopeful to extubate today Hemodynamics: Levo for goal MAP >65 Antibiotics: -Ancef per cardiology Serial H and H Q6H Lactic acid monitor-- Monitor BMP @1400 Start IVF D5W @80ml/hr Replace Phosphorus Monitor H/H blood loss CTS following -MT X 1, CT X 1 Pepcid/SCDs I have personally evaluated the patient; history [...] with anesthesia, cardiology and cardiothoracic surgery attendings Electronically signed by Olinda Payne Conversion Highway Construction Inspector Cerner at 11/10/2022 9:19 AM CDT documented in this encounter Plan of Treatment Not on file documented as of this encounter Visit Diagnoses Not on filedocumented in this encounter
--- OUTSIDE RECORDS SUMMARY | 2025-01-16 11:46 | XMS_ITS | Encounter Summary ---
Author Organization [facility] Address [address] [place] [address] Care Team Providers Care Operations Administrator Name Role Phone Unavailable Primary Care Provider Unavailabl e Encounter Details Date Type Department Care Team (Late st Contact Info) Description 12/28/2020 Transcribed Document [facility] [place] [address] [place] [address] ProviderMacrina MD [address] [place], [place] [phone] Social History Tobacco Use Types Packs/Day Years Used Date Smoking Tobacco: Never Assessed Sex and Gender Information Value Date Recorded Sex Assigned at Not on file Legal Sex Male 1:13 PM CDT Gender Identity Not on file Sexual Orientation Not on file documented as of this encounter Miscellaneous Notes * Cerner Conversion Note - Historical ProviderMD - 12/28/2020 5:00 PM CDT Chart Check - Review Order Profile Entered On: 12/28/2020 19:35 EDT Performed On: 12/28/2020 17:00 EDT by DIMAS GARCIA RN Chart Check Powerplans Initiated/Discontinued as Appropriate : Yes All Active Orders Reviewed : Yes DIMAS GARCIA RN - 12/28/2020 19:35 EDT documented in this encounter Plan of Treatment Not on file documented as of this encounter Visit Diagnoses Not on filedocumented in this encounter
--- OUTSIDE RECORDS SUMMARY | 2025-01-16 11:46 | XMS_ITS | Encounter Summary ---
Author Organization [facility] [employer] Address [address] [place] [address] Care Team Providers Care Grass Farmer Name Role Phone Unavailable Primary Care Provider Unavailabl e Encounter Details Date Type Department Care Team (Late st Contact Info) Description 12/27/2020 Transcribed Document [facility] Pulm & Critical Care Medicine [address] [place] [address] [address] [place] [address] Willie Espinoza MD [address] [facility] [address] [place] [address] Social History Tobacco Use Types Packs/Day Years Used Date Smoking Tobacco: Never Assessed Sex and Gender Information Value Date Recorded Sex Assigned at Not on file Legal Sex Male 1:13 PM CDT Gender Identity Not on file Sexual Orientation Not on file documented as of this encounter Miscellaneous Notes * Cerner Conversion Note - Willie Espinoza MD - 12/27/2020 11:42 PM EDT Patient: JOSE ADORNO Age: 80 [...] and subsequently went into PEA arrest. CODE MARIA was called. The patient received epinephrine, bicarb, [...] Problems Aortic stenosis, severe / SNOMED CT 9356570221 / Confirmed Hypertension / SNOMED CT 85065579 / Confirmed Hyperlipidemia / SNOMED CT 87754832 / Confirmed HTN - Hypertension / SNOMED CT 8415342269 / Confirmed H/O peripheral neuropathy / SNOMED CT 667089212 / Confirmed feet tingle all the time GERD - Gastro-esophageal reflux disease / SNOMED CT 1562731477 / Confirmed Disorder of prostate / SNOMED CT 02636165 / Confirmed Colorectal surgery / SNOMED CT 6998739162 / Confirmed Back pain, chronic / SNOMED CT 203983418 / Confirmed Chronic anxiety / SNOMED CT 388449122 / Confirmed At risk for sleep apnea / IMO [id number] / Confirmed Arthritis of right knee / SNOMED CT 6936186210 / Confirmed Aortic valve stenosis / SNOMED CT 823570374 / Confirmed Resolved: Cancer of colon / SNOMED CT 3741761512, Active Problems (13) Aortic stenosis, severe Aortic valve stenosis Arthritis of right knee At risk for sleep apnea Back pain, chronic Chronic anxiety Colorectal surgery Disorder of prostate GERD - Gastro-esophageal reflux disease H/O peripheral neuropathy HTN - Hypertension Hyperlipidemia Hypertension Physical Examination VS/Measurements General: Sedated on mechanical ventilator. RASS -4. ON sedation with propofol and fentanyl. Eye: Pupils are equal, round and reactive [...] exam: Pale. Neurologic: Sedated on ventilator. RASS -4 Psychiatric: Unable to assess. Review / Management [...] 42.2 12/27/2020 12:11 pO2 Art POC 245.0 NE 12/27/2020 12:11 HCO3 Art POC 18.9 LOW 12/27/2020 12:11 tCO2 Art POC 20.0 LOW 12/27/2020 12:11 BE Art POC -8.0 LOW 12/27/2020 12:11 sO2 Art POC >99.9 HI 12/27/2020 12:11 ABG Num of Draw Attempts 12/27/2020 11:52 PaO2/FiO2 calculated 12/27/2020 11:52 Radiology Results (Last 48 hours) [id number] -- 12/27/2020 06:39 CR Chest 1 Vw [...] prior.FINDINGS: The endotracheal tube terminates above the nisha. 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 Echo 12/25/2020: EF 55%, grade II diastolic dysfunction, trace AR, severe New onset A fib; now sinus rhythm Hx of diastolic heart failure History of hypertension Heme Acute blood loss anemia requiring multiple units of PRBC transfusion. 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 Solorzano. Emergent surgery through median sternotomy approach. Now stabilizing to some extent. Vent bundle - titrate FiO2 to maintain sats 89-94% - current vent settings AC 18, TV 460, PEEP 5, FiO2 70% Sedation: Fentanyl and propofol drip for goal RASS -2 Hemodynamics: Patricio, Levophed and Vaso for goal MAP >65 Amiodarone drip per cardiology for new A.fib Antibiotics: Ancef per cardiology Serial H and H Q4H Monitor lactate and BMP and ABG every 6 hours for next 24 hours. NPO overnight. Glycemic control with SSI every 6 hours. May use critical care insulin protocol if needed. Avoid antiplatelets and anticoagulants due to hemorrhagic shock. Severe metabolic acidosis from shock state. Prognosis: guarded. Very critically unstable, hemorrhagic shock, pericardial tamponade status post window, left ventricular perforation, S/p LV repair emergently by Dr. Solorzano for LV rupture, acute hypoxic respiratory failure, mechanical ventilation. Very high risk mortality and morbidity FULL CODE D/w RN, Radha about overnight plan. I saw and examined the patient at bedside, obtained medical history, reviewed labs, diagnostics and chest imaging data. I personally and independently visualized and interpreted chest imaging data on PACS. I formulated diagnosis and treatment plans. I made all medical decisions as above. Complex case and requires high level of medical decision making for management. CCT 62 min documented in this encounter Plan of Treatment Not on file documented as of this encounter Visit Diagnoses Not on filedocumented in this encounter
--- OUTSIDE RECORDS SUMMARY | 2025-01-16 11:46 | XMS_ITS | Encounter Summary ---
Author Organization [facility] Address [address] [place] [address] Care Team Providers Care Hooker Off Name Role Phone Unavailable Primary Care Provider Unavailabl e Encounter Details Date Type Department Care Team (Late st Contact Info) Description 01/11/2021 Transcribed Document [facility] [place] [facility] [address] [place] [address] ProviderMacrina MD [address] [place] [address] Social History Tobacco Use Types Packs/Day Years Used Date Smoking Tobacco: Never Assessed Sex and Gender Information Value Date Recorded Sex Assigned at Not on file Legal Sex Male 1:13 PM CDT Gender Identity Not on file Sexual Orientation Not on file documented as of this encounter Miscellaneous Notes * Cerner Conversion Note - Historical ProviderMD - 01/11/2021 2:00 AM CDT Milieu Manager Details Entered On: 01/11/2021 2:55 EDT Performed On: 01/11/2021 2:00 EDT by Jaja Jernigan Non Emp RN Order Details Transport Mode Order Detail [...] Yes Meds Administered Via Tube : Yes Jaja Jernigan Non Emp RN - 01/11/2021 2:55 EDT Electronically signed by Olinda Payne Conversion [employer] Ass[employer] Craft Crewman Cerner at 11/10/2022 9:17 AM CDT documented in this encounter Plan of Treatment Not on file documented as of this encounter Visit Diagnoses Not on filedocumented in this encounter
--- OUTSIDE RECORDS SUMMARY | 2025-01-16 11:46 | XMS_ITS | Encounter Summary ---
Author Organization [employer] Address [address] [place] [address] Care Team Providers Care Equine Dentist Name Role Phone Unavailable Primary Care Provider Unavailabl e Encounter Details Date Type Department Care Team (Late st Contact Info) Description 01/03/2021 Transcribed Document [address] [address] Abby Rodrigues MD [address] [place] [address] Social History Tobacco Use Types Packs/Day Years Used Date Smoking Tobacco: Never Assessed Sex and Gender Information Value Date Recorded Sex Assigned at Not on file Legal Sex Male 1:13 PM CDT Gender Identity Not on file Sexual Orientation Not on file documented as of this encounter Miscellaneous Notes * Cerner Conversion Note - Abby Rodrigues MD - 01/03/2021 8:55 AM EDT Patient: JOSE ADORNO Age: 80 years Sex: Male : 1940 Associated Diagnoses: None Author: ABBY RODRIGUES MD-CAR Basic Information PCP: Robert Batista MD Primary Beef Lugger: Arthur Gomez MD Subjective Patient seen and [...] = 1 Tab, Oral, BID , Medications (32) Active Scheduled: (11) #NaCl 0.9% *FLUSH* inj 10 mL 10 [...] Intake and Output 24 hour intake: Total 1,110 ml 24 hour output: Total 1,610 ml VS/Measurements Vitals Signs (last 24 hrs) Last Charted Minimum Maximum Mon HR 66 (JAN 03 07:00) 57 (JAN 03 04:00) 75 (JAN 03:22) Resp Rate L 13 (JAN 03:) L 8 (JAN 02 22:00) H 49 (JAN 02 14:00) SBP 104 (JAN 03:00) 92 (JAN 02 09:00) H 150 (JAN 03 05:00) DBP L 57 (JAN 03 07:00) L 51 (JAN 02 10:00) 73 (JAN 02 17:00) MAP 74 (JAN 03 07:00) 68 (JAN 02 09:00) 104 (JAN 03 05:00) SpO2 97 (JAN 03 07:00) 96 (JAN 02 15:00) 100 (JAN 02 08:14) General: Intubated/Sedated. Eye: Normal conjunctiva. HENT: Normocephalic. Respiratory: Symmetrical chest wall expansion. Breath sounds: Bilateral, Rhonchi present. Support: Ventilator. Cardiovascular: Normal rate, Regular rhythm, Good pulses equal in all extremities. Gastrointestinal: Soft, Non-distended, Normal bowel sounds. Genitourinary: indwelling rocha catheter. Musculoskeletal: No deformity. Integumentary: Warm, Dry. Neurologic: Intubated/Sedated. Psychiatric: Intubated/Sedated. Results Review JAN 03 04:37 145 112 H 34 / H 138 3.7 30 0.80 \ JAN 03 04:37 \ L 8.1 / H 9.6 L 147 / L 25.5 \ Cardiac Markers (Current Encounter/Past 24 Hours) Radiology Results (Last 48 hours) [id number] -- 12/27/2020 06:39 CR Chest 1 Vw Portable (01/01/2021 10:20) [...] Dr. Bebeto Avelar.Transcribed by [place] Moh[place] PA-C, RBeatriceT. (N), C N M T.I have personally [...] Dr. Bebeto Avelar.Transcribed by [place] Mohan PA-C, GrahamTBeatrice (N), Kieran N M T.I have personally viewed, interpreted [...] reviewed, interpreted, and dictated by Dr. Brayan Partt.Transcribed by HERBERTH Baum have personally viewed, interpreted [...] s/p pericardiocentesis and surgical repair of LV [place]. PEA Arrest; CODE called 10 minutes to ROSC Mediastinal hemorrhage/Cardiac tamponade s/p emergent sternotomy; repair of left ventricular teat 12/27/2020 - Mechanical vent placed during surgery acute blood loss anemia s/p Transfusions: 4 units of PRBCs, cryoprecipitate, platelets, and FFP Hypertension Nonischemic cardiomyopathy Neurologic changes; CVA CT - no acute changes. MRI - Multiple acute infarcts PLAN; 01/03/2021 Intubated sedated following commands more awake [...]
--- OUTSIDE RECORDS SUMMARY | 2025-01-16 11:46 | XMS_ITS | Encounter Summary ---
Author Organization [facility] [employer] [facility] Address [address] [place] [address] Care Team Providers Care Copy Operator Name Role Phone Unavailable Primary Care Provider Unavailabl e Encounter Details Date Type Department Care Team (Late st Contact Info) Description 12/28/2020 Transcribed Document [facility] [place] [address] [place] [address] ProviderMacrina MD [address] [place], [place] [id number] Social History Tobacco Use Types Packs/Day Years Used Date Smoking Tobacco: Never Assessed Sex and Gender Information Value Date Recorded Sex Assigned at Not on file Legal Sex Male 1:13 PM CDT Gender Identity Not on file Sexual Orientation Not on file documented as of this encounter Miscellaneous Notes * Cerner Conversion Note - Macrina ProviderMD - 12/28/2020 12:41 PM CDT On Going Discharge Planning Entered On: 12/28/2020 12:42 EDT Performed On: 12/28/2020 12:41 EDT by SOPHY RM Rn-Cluster Bore OperatorGastrointestinal Technician Progress Note Discharge Arrangements : Patient Post-Acute [...] : Clinical Condition of Patient SOPHY RM Rn-Cluster Bore Operator - 12/28/2020 12:41 EDT Narrative Progress Note Narrative Progress Note : DCP TBD - pending progress; OP Cardiac Rehab referral placed thru [facility]. SOPHY RM, Rn-Cluster Bore Operator - 12/28/2020 12:41 EDT documented in this encounter Plan of Treatment Not on file documented as of this encounter Visit Diagnoses Not on filedocumented in this encounter
--- OUTSIDE RECORDS SUMMARY | 2025-01-16 11:46 | XMS_ITS | Encounter Summary ---
Author Organization [facility] Address [address] [place] [address] Care Team Providers Care Book Editor Name Role Phone Unavailable Primary Care Provider Unavailabl e Encounter Details Date Type Department Care Team (Late st Contact Info) Description 01/03/2021 Transcribed Document [facility] [place] Medicine [address] [place] [address] ProviderMacrina MD [address] [place], [place] [address] Social History Tobacco Use Types Packs/Day Years Used Date Smoking Tobacco: Never Assessed Sex and Gender Information Value Date Recorded Sex Assigned at Not on file Legal Sex Male 1:13 PM CDT Gender Identity Not on file Sexual Orientation Not on file documented as of this encounter Miscellaneous Notes * Cerner Conversion Note - Historical ProviderMD - 01/03/2021 5:00 PM CDT Chart Check - Review Order Profile Entered On: 01/03/2021 18:12 EDT Performed On: 01/03/2021 17:00 EDT by Li Abraham RN-PATIENT CARE BEDSIDE NON-EXEMPT Chart Check Powerplans Initiated/Discontinued as Appropriate : Yes All Active Orders Reviewed : Yes Li Abraham RN-PATIENT CARE BEDSIDE NON-EXEMPT - 01/03/2021 18:12 EDT documented in this encounter Plan of Treatment Not on file documented as of this encounter Visit Diagnoses Not on filedocumented in this encounter
--- OUTSIDE RECORDS SUMMARY | 2025-01-16 11:46 | XMS_ITS | Encounter Summary ---
Author Organization [facility] Address [address] [place] [address] Care Team Providers Care Core Layer Machine Operator Name Role Phone Unavailable Primary Care Provider Unavailabl e Encounter Details Date Type Department Care Team (Late st Contact Info) Description 12/28/[address] [facility] [place] Medicine [facility] [place] [address] ProviderMacrina MD [address] [place], [place] [id number] Social History Tobacco Use Types Packs/Day Years Used Date Smoking Tobacco: Never Assessed Sex and Gender Information Value Date Recorded Sex Assigned at Not on file Legal Sex Male 1:13 PM CDT Gender Identity Not on file Sexual Orientation Not on file documented as of this encounter Miscellaneous Notes * Cerner Conversion Note - Macrina Cordova MD - 12/28/2020 8:27 AM CDT Patient: JOSE ADORNO Age: 80 [...] Propofol. He is also on levo .02mcg/kg/min. Health Status Allergies: Allergic Reactions (Selected) No Known Allergies Physical Examination Intake and Output 24 hour intake: Total 3435 ml 24 hour output: Urinary catheter 2045 ml, Total 7425 ml MT 5170ml and Rt CT 150ml / 24hrs VS/Measurements Vital Measurements 12/28/2020 7:00 EDT Systolic Blood Pressure 94 mmHg Diastolic Blood Pressure 51 mmHg LOW Mean Arterial Pressure (MAP)-BMDI 69 Systolic BP, Arterial Line 1 115 mmHg Diastolic BP, Arterial Line 1 48 mmHg LOW Mean Arterial Pressure, Line 1 67 mmHg Temperature Source Bladder Temperature Mode Celsius Temperature, Celsius 37.1 Deg C Clinical Temperature, F 98.8 Deg F Heart Rate Monitored 64 bpm Oxygen Saturation 100 % Oxygen Therapy Mode Mechanical ventilation FiO2 50 % General: Intubated and sedated. HENT: Normocephalic. Neck: Supple. Respiratory: Lungs are clear to auscultation. Cardiovascular: Normal rate, 64 beats per minute, Regular rhythm, S1, S2, No edema. Integumentary: Warm, Dry, [place]. Review / Management Results review: DEC 28 05:20 H 151 H 118 14 / 90 4.2 29 0.80 \ DEC 28 05:20 \ L 8.3 / 7.4 L 124 / L 23.8 \ Blood Gases (Current Encounter/Past 24 Hours) pH Art 7.63 CRIT 12/28/2020 04:47 pCO2 Art 29.1 LOW 12/28/2020 04:47 pO2 Art 188.0 HI 12/28/2020 04:47 HCO3 Art 30.5 HI 12/28/2020 04:47 BE Art 9.1 HI 12/28/2020 04:47 sO2 Art >100.0 12/28/2020 04:43 tHb Art 8.7 LOW 12/28/2020 04:47 FHHb <2.4 NA 12/28/2020 04:43 ctO2 13.9 [...] HI 12/27/2020 22:06 BE Art POC 6.0 VT 12/27/2020 22:06 sO2 Art POC 99.0 VT 12/27/2020 22:07 ABG Num of Draw Attempts 1 NA 12/28/2020 04:43 PaO2/FiO2 calculated 313 NA 12/28/2020 04:43 Coagulation Results (Current Encounter/Past 24 Hours) PT 11.4 Second(s) 12/28/2020 05:41 PTT 62.4 Second(s) VT 12/27/2020 17:59 INR 1.1 12/28/2020 05:41 . Impression and Plan 12/27/20 1.TAVR 2. 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 3. Emergent median sternotomy. 4. Repair of left ventricular tear. 12/28/20 POD#1 Intubated and sedated -Wean vent as tolerated Levo .02mcg/kg/min -Wean as tolerated MTs 370ml / [address] 150ml Diagnosis Anxiety - Pre-Op Diagnosis, Medical. Cardiac [...]
--- OUTSIDE RECORDS SUMMARY | 2025-01-16 11:46 | XMS_ITS | Encounter Summary ---
Author Organization [facility] Address [address] [place] [address] Care Team Providers Care Preservationist Name Role Phone Unavailable Primary Care Provider Unavailabl e Encounter Details Date Type Department Care Team (Late st Contact Info) Description 01/01/2021 Transcribed Document [facility] [place] [address] [place] [address] ProviderMacrina MD [address] [id number] Social History Tobacco Use Types Packs/Day Years Used Date Smoking Tobacco: Never Assessed Sex and Gender Information Value Date Recorded Sex Assigned at Not on file Legal Sex Male 1:13 PM CDT Gender Identity Not on file Sexual Orientation Not on file documented as of this encounter Miscellaneous Notes * Cerner Conversion Note - Historical ProviderMD - 01/01/2021 3:00 AM CDT Nutrition Assessment Entered On: 01/01/2021 9:53 EDT Performed On: 01/01/2021 11:02 EDT by Tamy Wolff Dietitian Nutrition Assessment Nutrition Assessment Reason : Follow Up Tamy Wolff Dietitian - 01/01/2021 9:53 EDT Current Nutrition Regimen Comment : 01/01: Pt was extubated yesterday and re-intubated this morning. Currently not requiring any pressors. RN reports possibility of propofol being added. Corpak placed terminating in duodenum. TF restarted at 20ml/hr this morning. 12/28: RD consult rec'd for ERAS. 80yoM [...] colon resection, inguinal hernia repair, herman Labs: BUN 26, Alb 2.5, TBil 2.3, AST 50, iCa 1.05 Meds: VitC, statin, senokot, SSI, lactobacillus, PPI, abx Drips: precedex, fentanyl GI: LBM 6/7, +BS, +NGT, +corpak (2nd portion of duodenum) Skin: chest incisions; anasarca Diet: NPO TF: Osmolite 1.5 @ 20ml/hr Ht: 68 Wt: 65.14kg/143# (admit), 77.3kg (12/28), 74.2kg (01/01) Wt hx: 141# (11/15/19), 146# (12/03/20) BMI: 22 IBW: 70kg (93% IBW) Est needs: 1600-1800kcal (25-28kcal/kg) 78g PRO (1.2g/kg) Tamy Wolff Dietitian - 01/01/2021 11:00 EDT Nutrition Diagnoses Oral or Nutrition Support Intake : Inadequate oral intake Oral or Nutr Support Intake Related To : resp fxn +vent Oral or Nutr Support Intake Evidenced by : NPO; need for EN Oral or Nutrition Support Intake Status : Active Tamy Wolff Dietitian - 01/01/2021 11:00 EDT Nutrition Interventions Enteral/Parenteral Nutrition : Initiate enteral nutrition Tamy Wolff Dietitian - 01/01/2021 11:00 EDT Monitoring/Evaluation Enteral Nutrition Intake : Formula/Solution, Feeding tube flush, Tube Feeding Tolerance Weight Status : Weight Maintanence Gastrointestinal Function : Bowel Function Tamy Wolff Dietitian - 01/01/2021 11:00 EDT Nutrition Recommendations Dietitian Recommendations : 1. Restart Osmolite 1.5 @ 20 ml/hr. If pt remains off pressors/propofol, advance as tolerated to goal at 50ml/hr + 1 [id number] daily (provides 1710kcal, 83g PRO). Goal: meet est needs 2. Monitor elytes and replace prn Goal: wnls 3. Obtain wt 2x weekly goal: avoid sig wt changes Risk: High Nutrition Care Level : High Tamy Wolff Dietitian - 01/01/2021 11:01 EDT Electronically signed by Olinda aPyne Conversion Venet[employer] Blind Machine Operator Cerner at 11/10/2022 9:29 AM CDT documented in this encounter Plan of Treatment Not on file documented as of this encounter Visit Diagnoses Not on filedocumented in this encounter
--- OUTSIDE RECORDS SUMMARY | 2025-01-16 11:46 | XMS_ITS | Encounter Summary ---
Author Organization [facility] [facility] Address [address] [place] [address] Care Team Providers Care Reconsignment Clerk Name Role Phone Unavailable Primary Care Provider Unavailabl e Encounter Details Date Type Department Care Team (Late st Contact Info) Description 01/11/2021 Transcribed Document [facility] [place] [address] [place] [address] ProviderMacrina MD [address] [place], [place] [id number] Social History Tobacco Use Types Packs/Day Years Used Date Smoking Tobacco: Never Assessed Sex and Gender Information Value Date Recorded Sex Assigned at Not on file Legal Sex Male 1:13 PM CDT Gender Identity Not on file Sexual Orientation Not on file documented as of this encounter Miscellaneous Notes * Cerner Conversion Note - Macrina ProviderMD - 01/11/2021 9:35 AM CDT On Going Discharge Planning Entered On: 01/11/2021 9:38 EDT Performed On: 01/11/2021 9:35 EDT by SOPHY RM Rn-Receiving And Processing SupervisorData Technical Lead Progress Note Discharge Arrangements : Patient Post-Acute [...] : Clinical Condition of Patient SOPHY RM Rn-Receiving And Processing Supervisor - 01/11/2021 9:35 EDT Narrative Progress Note Narrative Progress Note : HD#15; ELOS 3; LRR; BOOST 6; POD#15 - ElecTAVR/LVentTear/Tamponade = 02=1L; GO=197; TF/Corpak 50cc; voice improving; working w/ST for dysphagia; plan for repeat instrumental in 1 wk; ongoing therapy; spouse to provide choicing for STR; on transfer out of [facility]. Historical Progress Note : HD#14; ELOS 3; LRR; BOOST 6; POD#14 - ElecTAVR/LVentTear/Tamponade = 02=2L; BIPAP prn; Duonebs; Cefepime/Zosyn; FEES today; Cardiology managing Tacycardia; per LOS recommendation - pt referred to LTAC; likely DCP subacute rehab; anticipate transfer to floor soon. SOPHY RM Rn-Receiving And Processing Supervisor - 01/10/21 08:19:07 HD#13; ELOS 3; LRR; BOOST 6; POD#13 - ElectiveTAVR/LVentTear/Tamponade - 02=2L; BIPAP prn for WOB/hs; Duonebs/IS/FVD encouraged; Patricio gtt; central line d/c 6/15/PICC placed; T=100; Maxipime; working with therapy - very weak; Mod-Max A x2 to EOB - not safe to stand; ST - failed/ongoing dysphagia tx; Corpak/TF; DCP rehab - improving. SOPHY RM Rn-Receiving And Processing Supervisor - 01/09/21 07:48:59 HD#12; ELOS 3; LRR; BOOST 6; POD #12 - Electiv TAVR/LVentTear/Cardiac Tamponade SOPHY RM Rn-Receiving And Processing Supervisor - 01/08/21 14:56:21 HD#12; ELOS 3; LRR; BOOST 6; POD #12 - Electiv TAVR/LVentTear/Cardiac Tamponade/Embolic Strokes w/ R side weakness; RA; IS/FVD encouraged; report pt with delerium/lethargy overnight - pulled out IV; PICC ordered today; R arm weakness; Corpak/TF - failed ST evaluation - improving; DCP Rehab; continue to follow SOPHY RM Rn-Receiving And Processing Supervisor - 01/08/21 14:58:32 HD#11; ELOS 3; MRR; BOOST 6; POD#11 - Elective TAVR/LVentTear/Cardiac Tamponade; 02=2L; Maxipime/Ancef; IV Bumex; working w/therapy and stood at side of bed; SOPHY RM Rn-Receiving And Processing Supervisor - 01/07/21 14:34:53 HD#11; ELOS 3; MRR; BOOST 6; POD#11 - Elective TAVR/LVentTear/Cardiac Tamponade; 02=2L; Maxipime/Ancef; IV Bumex; working w/therapy and stood at side of bed; ST - ongoing rec for NPO r/t dysphagia - tx; instrumental 3-4 days; Corpak/TF; DCP anticipate rehab; initial referrals placed thru [facility] and list w/post acute star ratings provided to pt for choicing. SOPHY RM Rn-Receiving And Processing Supervisor - 01/07/21 14:36:37 HD#8; ELOS 3; LRR; BOOST 6; POD#8 - Elec TAVR/LVentTear/Cardiac Tamponade - intubated fi02 100; awake/calm/following commands; bronchoscopy scheduled today; SBT; T=101.2; MRI - diffuse scattered bilateral infarcts; Dr. Navarro states during MDR that if pt is unable to successfully wean over will need trach/peg consult on Thursday; continue to follow; will need therapy evaluations when extubated. SOPHY RM Rn-Receiving And Processing Supervisor - 01/04/21 15:16:12 HD#7; ELOS 3; LRR; BOOST 6; POD#7 - Elective TAVR/LVentTear/CardiacTamponade/Arrest - intubated fi02 40/peep 8; SBT x 2 hr; Fent/Precedex gtt; Corpak/TF; Humza CT in place; Neurology following - MRI diffuse scattered bilateral infarcts; pt w/improvement in movement of R side; PT/OT evaluations when extubated; DCP TBD - likely rehab. SOPHY RM Rn-Receiving And Processing Supervisor - 01/03/21 15:03:09 HD#6; ELOS 3; LRR; BOOST 6; POD #6 - Electiv TAVR/L Vent Tear/Cardiac Tamponode/Arrest - reintubated 01/01; fi02 40; Levo/Fent/Precedex gtt; wean sedation - on SBT 2hr TID; T=99.9; Dr. Navarro states during MDR that pt's spouse aware may need trach/peg; DCP TBD pending progress. SOPHY RM Rn-Receiving And Processing Supervisor - 01/02/21 14:55:12 HD#5; ELOS 3; LRR; BOOST 6; POD #5 - Elective TAVR/L Ventrial Tear/Cardiac Tamponode; extubated on 12/31 required reintubation today fi02 60/peep 8; Precedex/Fent gtt; Corpak/TF; IV Zosyn; CT draining; T=100; DCP TBD pending progress; will need therapy evals when appropriate. SOPHY RM Rn-Receiving And Processing Supervisor - 01/01/21 14:47:57 HD#4; ELOS 3; LRR; POD#4 - Electiv TAVR; L Ventrical Tear; intubated fi02 50; Cardene gtt; Corpak to be placed and TF initiated; SBT today; following commands; Head MRI ordered; possible extubation post MRI; no movement noted on R side; will need PT/OT evaluations when extubated; DCP pending progress - likely rehab. SOPHY RM Rn-Receiving And Processing Supervisor - 12/31/20 14:58:43 DCP TBD - pending progress; OP Cardiac Rehab referral placed thru [facility]. SOPHY RM Rn-Receiving And Processing Supervisor - 12/28/20 12:42:03 SOPHY RM Rn-Receiving And Processing Supervisor - 01/11/2021 9:35 EDT documented in this encounter Plan of Treatment Not on file documented as of this encounter Visit Diagnoses Not on filedocumented in this encounter
--- OUTSIDE RECORDS SUMMARY | 2025-01-16 11:46 | XMS_ITS | Encounter Summary ---
Author Organization [place] [facility] Address [address] [place] [address] Care Team Providers Care Piano Maker Name Role Phone Unavailable Primary Care Provider Unavailabl e Encounter Details Date Type Department Care Team (Late st Contact Info) Description 01/03/2021 Transcribed Document [facility] [place] Family Medicine [address] [place] [address] ProviderMacrina MD [address] [place] [address] Social History Tobacco Use Types Packs/Day Years Used Date Smoking Tobacco: Never Assessed Sex and Gender Information Value Date Recorded Sex Assigned at Not on file Legal Sex Male 1:13 PM CDT Gender Identity Not on file Sexual Orientation Not on file documented as of this encounter Miscellaneous Notes * Cerner Conversion Note - Macrina ProviderMD - 01/03/2021 9:52 AM CDT Evaluation, Physical Therapy Entered On: 01/03/2021 15:26 EDT Performed On: 01/03/2021 14:10 EDT by ARIANE PIERCE, PT General Information, PT Therapy Diagnosis, PT : Decreased strength Co-treated by, PT : Occupational Therapist General Information Comment, PT : Admitted with Critical Aortic Valve Stenosis Developed Cardiac Tamponade S/P TAVR Mediastinal Hemorrhage On 12/27 had TAVR Emergency SubXiphoid Pericardial Window with Drainage of Pericardial Effusion On 12/27 also had Emergency Median Sternotomy and Repair of Left Ventricular Tear ARIANE PIERCE, PT - 01/03/2021 15:39 EDT Visit Type, PT : Initial evaluation Patient Orders : Order Date Order Ordering 12/27/2020 18:03 Consult to Physical Therapy Ordered By: EMEKA MADERA MD-CAT 01/01/2021 13:55 PT Evaluation and Treatment Ordered By: ANANDA QUILES MD-NEU 01/02/2021 11:49 Physical Therapy Eval and Treat Ordered By: ANANDA QUILES MD-NEU 01/03/2021 09:52 Physical Therapy Eval and Treat Ordered By: ANANDA QUILES MD-NEU Active Diagnoses : 12/28/2020 12:00 Anxiety disorder, unspecified 12/28/2020 12:00 Cardiac tamponade 12/28/2020 12:00 Essential (primary) hypertension 12/28/2020 12:00 Gastro-esophageal reflux disease without esophagitis 12/28/2020 12:00 Hemorrhage, not elsewhere classified 12/28/2020 12:00 Hyperlipidemia, unspecified 12/28/2020 12:00 Malignant neoplasm of colon, unspecified 12/28/2020 12:00 Nonrheumatic aortic (valve) stenosis 12/28/2020 12:00 Polyneuropathy, unspecified Admission Date : 12/27/2020 06:39 Personal Devices : Personal Devices No Devices Recorded Assistive Devices : Assistive Devices No Devices Recorded ARIANE PIERCE, PT - 01/03/2021 15:26 EDT ARIANE PIERCE, PT - 01/03/2021 15:39 EDT General Status Patient Received Status : Supine in bed, Restraint intact Treatment Start Time : 01/03/2021 13:48 EDT Patient Left Status : Restraint intact, RN/PCT informed, Family/Visitors at bedside, Communication board completed, All needs met and within reach RN/PCT Informed Comment : OK to see per RN Treatment End Time : 01/03/2021 14:10 EDT Treatment Time : 22 Minute(s) ARIANE PIERCE, PT - 01/03/2021 15:39 EDT History and Environment Living Situation, Therapy : Home Patient Lives With : Spouse Persons Providing Information : Patient, Spouse Home Equipment Therapy, PT : None Home Setup : Basement, One story Bedroom Location : Main level Bathroom #1 Location : Main level Stairs : Yes Stair Location(s) : Inside, Outside Stairs Inside Comment : Can avoid basement Outside Stairs, Number of Steps : 1 ARIANE PIERCE, PT - 01/03/2021 15:39 EDT Prior Level of Function PT GRID Prior LOF Ambulation, Household : Independent Prior LOF Ambulation, Community : Independent Prior LOF Bed Mobility : Independent Prior LOF Toileting : Independent Prior LOF Transfer : Independent ARIANE PIERCE, PT - 01/03/2021 15:39 EDT Intervention Summary Heart Rate/Pulse Pre-intervention : 81 bpm BP Systolic Pre-intervention : 158 mmHg BP Diastolic Pre-intervention : 79 mmHg O2 Pre-Intervention : vent SpO2 Pre-Intervention : 98 % Heart Rate/Pulse Post-intervention : 85 bpm BP Systolic Post-intervention : 147 mmHg BP Diastolic Post-intervention : 69 mmHg O2 Post-Intervention : vent SpO2 Post-Intervention : 97 % ARIANE PIERCE, PT - 01/03/2021 15:39 EDT Upper Extremity Upper Extremity Dominance : Left ARIANE PIERCE, PT 01/03/2021 15:39 EDT Right Upper Extremity Detailed ROM Grid Right Shoulder Flexion Range Active Assist : 90 ARIANE PIERCE, PT - 01/03/2021 15:39 EDT Left Upper Extremity Detailed ROM Grid Left Shoulder Flexion Range Active Assist : 45 ARIANE PIERCE, PT - 01/03/2021 15:39 EDT Right Upper Extremity MMT Shoulder Flexion 0-180 : 2-/poor Elbow Flexion 0-150 : 2-/poor Elbow Extension 0-0 : 2-/poor Wrist Flexion 0-80 : 2-/poor Wrist Extension 0-70 : 2-/poor Forearm Pronation 0-70 : 2-/poor Forearm Supination 0-85 : 2-/poor ARIANE PIERCE., PT - 01/03/2021 15:39 EDT Left Upper Extremity MMT Shoulder Flexion 0-180 : 2+/poor Elbow Flexion 0-150 : 2+/poor Elbow Extension 0-0 : 2+/poor Wrist Flexion 0-80 : 2+/poor Wrist Extension 0-70 : 2+/poor Forearm Pronation 0-70 : 2+/poor Forearm Supination 0-85 : 2+/poor ARIANE PIERCE., PT - 01/03/2021 15:39 EDT Lower Extremity Right LE Active Assist ROM : WFL Left LE Active Assist ROM : WFL ARIANE PIERCE, PT - 01/03/2021 15:39 EDT Right Lower Extremity MMT Hip Flexion (0-125) : 2/poor Hip Extension (0-10) : 2/poor Hip Abduction (0-45) : 2/poor Hip Adduction (0-20) : 2/poor Knee Flexion (0-140) : 2/poor Knee Extension (0-0) : 2/poor Ankle Dorsiflexion (0-20) : 2/poor Ankle Plantarflexion (0-45) : 2/poor ARIANE PIERCE, PT - 01/03/2021 15:39 EDT Left Lower Extremity MMT Hip Flexion (0-125) : 3/fair Hip Extension (0-10) : 2/poor Hip Abduction (0-45) : 2/poor Hip Adduction (0-20) : 2/poor Knee Flexion (0-140) : 2/poor Knee Extension (0-0) : 3/fair Ankle Dorsiflexion (0-20) : 2/poor Ankle Plantarflexion (0-45) : 2/poor ARIANE PIERCE, PT - 01/03/2021 15:39 EDT Functional Mobility Functional MobilityComment : Ex only in bed today ARIANE PIERCE, PT - 01/03/2021 15:39 EDT Gait Training/Assessment, PT Gait Assistance Level : Unable to assess/activity not appropriate Walking Distance : Too weak and on vent ARIANE PIERCE, PT - 01/03/2021 15:39 EDT Cognition Assessment, PT Cognition Assessment Comment : On vent Nods to answer Follows Basic Command Assessment : Yes ARIANE PIERCE, PT - 01/03/2021 15:39 EDT Edu Topics Physical Therapy Education Grid Therapeutic Exercises : Needs further teaching ARIANE PIERCE, PT - 01/03/2021 15:39 EDT Indication Assesessment, PT Physical Therapy Indicated : Yes PT Problem List : Impaired, strength Potential Barriers To Therapy : None evident Rehabilitation Potential : Good ARIANE PIERCE PT - 01/03/2021 15:39 EDT Plan of Care, PT PT Tx Plan/Goals Established w Patient : Yes PT Frequency Rehab : Daily PT Duration Rehab : Fourteen days PT Treatments Planned : Balance training, Bed mobility training, Gait training, Therapeutic exercises, Transfer training ARIANE PIERCE, PT - 01/03/2021 15:39 EDT Short Term Goals Strength STG Grid Goal #1 Goal #2 Activity : Bilateral lower extremity Bilateral upper extremity Muscle Grade : 3/fair 3/fair Date to Meet : 01/10/2021 EDT 01/10/2021 EDT Goal Status : Intial Goal Intial Goal ARIANE PIERCE, PT - 01/03/2021 15:39 EDT ARIANE PIERCE, PT - 01/03/2021 15:39 EDT Car Shifter Goals Mobility/Bed Mobility LTG PT Grid Goal #1 Goal #2 Activity : Supine to sit Sit to stand Assist : Supervision or set-up Supervision or set-up Date to Meet : 01/17/2021 EDT 01/17/2021 EDT Goal Status : Intial Goal Intial Goal ARIANE PIERCE, PT - 01/03/2021 15:39 EDT ARIANE PIERCE, PT - 01/03/2021 15:39 EDT Ambulation LTG Grid Goal #1 Device : Walker, front wheel Distance : 100' Assist : Assist, minimal Date to Meet : 01/17/2021 EDT Goal Status : Intial Goal ARIANE PIERCE, PT - 01/03/2021 15:39 EDT Treatment Note Subjective Comment : On vent Nods to answer Patient's Response to Treatment : Very Weak Additional Objective Information : He did [id number] with UE's and LE's. He did SAQ's X10 with RLE and SLR's X10 with LLE Assessment : Needs strengthening Plan for Treatment : Ex Bed MObility Sitting Balance Transfers Gt ARIANE PIERCE, PT - 01/03/2021 15:39 EDT Pain Assessment Pain Scaled Used : 0-10 Pain scale Pain Score Pre-Intervention : 0 ARIANE PIERCE, PT - 01/03/2021 15:39 EDT Image 1 - Images currently included in the form version of this document have not been included in the text rendition version of the form. Anticipated Discharge Needs, OT/PT Anticipated Discharge to : Unit, rehabilitation ARIANE PIERCE, PT - 01/03/2021 15:39 EDT [place] PT Charges PT Eval Moderate Complexity : 1 ARIANE PIERCE, PT - 01/03/2021 15:39 EDT Electronically signed by [facility] Conversion Mechanical Technician Cerner at 11/10/2022 9:05 AM CDT documented in this encounter Plan of Treatment Not on file documented as of this encounter Visit Diagnoses Not on filedocumented in this encounter
--- OUTSIDE RECORDS SUMMARY | 2025-01-16 11:46 | XMS_ITS | Encounter Summary ---
Author Organization [facility] Address [address] [place] [address] Care Team Providers Care Resident Athletic Trainer Name Role Phone Unavailable Primary Care Provider Unavailabl e Encounter Details Date Type Department Care Team (Late st Contact Info) Description 01/01/2021 Transcribed Document [facility] [place] [address] [place] [address] ProviderMacrina MD [address] [place] [address] Social History Tobacco Use Types Packs/Day Years Used Date Smoking Tobacco: Never Assessed Sex and Gender Information Value Date Recorded Sex Assigned at Not on file Legal Sex Male 1:13 PM CDT Gender Identity Not on file Sexual Orientation Not on file documented as of this encounter Miscellaneous Notes * Cerner Conversion Note - Historical ProviderMD - 01/01/2021 7:54 PM CDT Event Note Entered On: 01/01/2021 19:56 EDT Performed On: 01/01/2021 19:54 EDT by Amber Paul RN Event Note Event Date/Time : 12/27/2020 10:30 EDT Event Location : Assigned room Event Details : Nursing assessment additional narrative Description of Event : Patient arrived from the cathlab with Neosynephrine gtt running though a micro dripper. Nurse was attempting to transition gtt to IV pump. Abmer Paul, RN - 01/01/2021 19:54 EDT documented in this encounter Plan of Treatment Not on file documented as of this encounter Visit Diagnoses Not on filedocumented in this encounter
--- OUTSIDE RECORDS SUMMARY | 2025-01-16 11:46 | XMS_ITS | Encounter Summary ---
Author Organization [facility] Address [address] [place] [address] Care Team Providers Care Geothermal Sheet Metal Worker Name Role Phone Unavailable Primary Care Provider Unavailabl e Encounter Details Date Type Department Care Team (Late st Contact Info) Description 01/11/2021 Transcribed Document [facility] [place] [facility] [place] [address] ProviderMacrina MD [address], [place] [id number] Social History Tobacco Use Types Packs/Day Years Used Date Smoking Tobacco: Never Assessed Sex and Gender Information Value Date Recorded Sex Assigned at Not on file Legal Sex Male 1:13 PM CDT Gender Identity Not on file Sexual Orientation Not on file documented as of this encounter Miscellaneous Notes * Cerner Conversion Note - Macrina Cordova MD - 01/11/2021 8:01 AM CDT Patient: JOSE ADORNO Age: 80 [...] 1012. 01/02/21: POD#6 Intubated and sedated on [id number]/hr and Precedex .6mcg/kg/min. He is also on [...] is weak but continues to get stronger. Review of Systems Constitutional: Weakness. Gastrointestinal: Last bowel movement: Yesterday. Health Status Allergies: Allergic Reactions (Selected) No Known Allergies Physical Examination Intake and Output 24 hour intake: Total 1492 ml 24 hour output: Total 1625 ml VS/Measurements Vital Measurements 01/11/2021 7:00 EDT Systolic Blood Pressure 145 mmHg HI Diastolic Blood Pressure 67 mmHg Mean Arterial Pressure (MAP)-BMDI 97 Temperature Source Bladder Temperature Mode Celsius Temperature, Celsius 37.3 Deg C Clinical Temperature, F 99.1 Deg F Heart Rate Monitored 104 bpm HI Respiratory Rate 23 Breaths/Min HI Oxygen Saturation 91 % LOW Oxygen Therapy Mode Nasal cannula Oxygen Flow Rate 2 Liter/Min General: The pt is alert and following simple commands, he is more verbal today. HENT: Normocephalic. Neck: Supple. Respiratory: Respirations are non-labored. Breath sounds: Rhonchi present. Cardiovascular: Normal rate, 96 beats per minute, Regular rhythm, S1, S2, No edema. Integumentary: Warm, Dry. Neurologic: Alert. Psychiatric: Cooperative, Appropriate mood & affect. Review / Management Results review: JAN 11 04:57 139 107 H 33 / H 145 4.5 29 0.70 \ JAN 11 04:57 \ L 8.9 / H 13.5 [...] 2L/NC TF 50ml/hr Continue P.T. Transfer to [facility] Pt will need rehab when clinically ready 01/11/21 POD#15 O2 91% 2L/NC TF 50ml/hr Continue P.T. Awaiting transfer to [facility] Diagnosis Anxiety - Pre-Op Diagnosis, Medical. Cardiac [...]
--- OUTSIDE RECORDS SUMMARY | 2025-01-16 11:46 | XMS_ITS | Encounter Summary ---
Author Organization [facility] Address [address] [place] [address] Care Team Providers Care Galley Worker Name Role Phone Unavailable Primary Care Provider Unavailabl e Encounter Details Date Type Department Care Team (Late st Contact Info) Description 01/17/2021 Transcribed Document [facility] [place] [address] [place] [address] ProviderMacrina MD [address] [place] [address] Social History Tobacco Use Types Packs/Day Years Used Date Smoking Tobacco: Never Assessed Sex and Gender Information Value Date Recorded Sex Assigned at Not on file Legal Sex Male 1:13 PM CDT Gender Identity Not on file Sexual Orientation Not on file documented as of this encounter Miscellaneous Notes * Cerner Conversion Note - Macrina ProviderMD - 01/17/2021 11:12 AM CDT [facility] Endo IntraOp Summary Primary Physician: PEYTON BEATTY MD Finalized Date/Time: 01/17/21 11:36:17 Pt. Name: JOSE ADORNO Ade /Sex: 1940 Male Med Rec #: [id number] Physician: DANYELLE WALTERS MD-CAR Financial #: [id number] Pt. Type: I Room/Bed: [facility]/ Admit/Disch: 12/27/20 06:39:00 - Institution: [facility] Endo - Case Attendance Entry 1 Entry 2 Entry 3 Case Attendee PEYTON BEATTY MD Johnson, Kaitlyn G, RN PRESCOTT, JACHELE, Highway Inspector Role Performed Surgeon/Proceduralist, Paperhanger Contractor, First Scrub, First First Time In 01/17/21 11:00:00 01/17/21 11:00:00 01/17/21 11:00:00 Time Out 01/17/21 11:24:00 01/17/21 11:24:00 01/17/21 11:24:00 Procedure EGD w Peg Tube Placement EGD w Peg Tube Placement EGD w Peg Tube Placement Other Attendee Superficial Wound Closed By: Last Modified By: Jerri Argueta RN Johnson, Kaitlyn G, RN Johnson, Kaitlyn G, RN 01/17/21 11:33:50 01/17/21 11:33:50 01/17/21 11:33:50 Entry 4 Entry 5 Entry 6 Case Attendee JOSE VIGIL Non Emp CALDWELL, JOSEPH A, CRNA Poff, Janie, RN Student Nurse Home Support Worker Role Performed Student CONSTRUCTION COST ESTIMATOR/Nurse Home Support Worker Paperhanger Contractor, Second Time In 01/17/21 11:00:00 01/17/21 11:00:00 01/17/21 11:00:00 Time Out 01/17/21 11:24:00 01/17/21 11:24:00 01/17/21 11:24:00 Procedure EGD w Peg Tube Placement EGD w Peg Tube Placement EGD w Peg Tube Placement Other Attendee Superficial Wound Closed By: Last Modified By: Jerri Argueta RN Johnson, Kaitlyn G, RN Johnson, Kaitlyn G, RN 01/17/21 11:33:50 01/17/21 11:33:50 01/17/21 11:33:50 Entry 7 Entry 8 Entry 9 Case Attendee Manoj Sunshine I, Claudia Kolb CORNEA, MIHAELA, MD-SEB Tableau Developer Role Performed Paperhanger Contractor, Third Scrub, Second Anesthesiologist of Record Time In 01/17/21 11:00:00 01/17/21 11:00:00 01/17/21 11:00:00 Time Out 01/17/21 11:24:00 01/17/21 11:24:00 01/17/21 11:24:00 Procedure EGD w Peg Tube Placement EGD w Peg Tube Placement EGD w Peg Tube Placement Other Attendee Superficial Wound Closed By: Last Modified By: Jerri Argueta RN Johnson, Kaitlyn G, RN Johnson, Kaitlyn G, RN 01/17/21 11:33:50 01/17/21 11:33:50 01/17/21 11:33:50 [facility] Endo - Case Attendance Audit 01/17/21 11:33:50 Process Camera Operator: [id number] Modifier: [id number] <*> Procedure Esophagogastroduodenoscopy, EGD w Peg Tube Placement 2 <*> Procedure Esophagogastroduodenoscopy, EGD w Peg Tube Placement 3 <*> Procedure Esophagogastroduodenoscopy, EGD w Peg Tube Placement 4 <*> Procedure Esophagogastroduodenoscopy, EGD w Peg Tube Placement 5 <*> Procedure Esophagogastroduodenoscopy, EGD w Peg Tube Placement 6 <*> Procedure Esophagogastroduodenoscopy, EGD w Peg Tube Placement 7 <*> Procedure Esophagogastroduodenoscopy, EGD w Peg Tube Placement 8 <*> Procedure Esophagogastroduodenoscopy, EGD w Peg Tube Placement 9 <*> Procedure Esophagogastroduodenoscopy, EGD w Peg Tube Placement 01/17/21 11:33:45 Process Camera Operator: [id number] Modifier: [id number] <*> Procedure Esophagogastroduodenoscopy, EGD w Peg Tube Placement 2 <+> Time Out 2 <*> Procedure Esophagogastroduodenoscopy, EGD w Peg Tube Placement 3 <+> Time Out 3 <*> Procedure Esophagogastroduodenoscopy, EGD w Peg Tube Placement 4 <+> Time Out 4 <*> Procedure Esophagogastroduodenoscopy, EGD w Peg Tube Placement 5 <+> Time Out 5 <*> Procedure Esophagogastroduodenoscopy, EGD w Peg Tube Placement 6 <+> Time Out 6 <*> Procedure Esophagogastroduodenoscopy, EGD w Peg Tube Placement 7 <+> Time Out 7 <*> Procedure Esophagogastroduodenoscopy, EGD w Peg Tube Placement 8 <+> Time Out 8 <*> Procedure Esophagogastroduodenoscopy, EGD w Peg Tube Placement 9 <+> Time Out 9 <*> Procedure Esophagogastroduodenoscopy, EGD w Peg Tube Placement 01/17/21 11:32:06 Process Camera Operator: [id number] Modifier: [id number] <+> 2 Case Attendee <+> 2 Role Performed <+> 2 Time In <+> 2 Procedure <+> 3 Case Attendee <+> 3 Role Performed <+> 3 Time In <+> 3 Procedure <+> 4 Case Attendee <+> 4 Role Performed <+> 4 Time In <+> 4 Procedure <+> 5 Case Attendee <+> 5 Role Performed <+> 5 Time In <+> 5 Procedure <+> 6 Case Attendee <+> 6 Role Performed <+> 6 Time In <+> 6 Procedure <+> 7 Case Attendee <+> 7 Role Performed <+> 7 Time In <+> 7 Procedure <+> 8 Case Attendee <+> 8 Role Performed <+> 8 Time In <+> 8 Procedure <+> 9 Case Attendee <+> 9 Role Performed <+> 9 Time In <+> 9 Procedure 01/17/21 11:32:05 Process Camera Operator: [id number] Modifier: [id number] 1 <+> Time In 1 <+> Time Out 1 <*> Procedure Esophagogastroduodenoscopy, EGD w Peg Tube Placement [facility] Endo - Case times Entry 1 Patient In Room Time 01/17/21 11:00:00 Out Room Time 01/17/21 11:24:00 Anesthesia Start Time 01/17/21 11:00:00 Stop Time 01/17/21 11:20:00 Surgery / Procedure Times Start Time 01/17/21 11:12:00 Stop Time 01/17/21 11:20:00 Last Modified By: Jerri Argueta RN 01/17/21 11:29:18 [facility] Endo - Delays Entry 1 Delay Reason Other Duration 0 Minute(s) Last Modified By: Jerri Argueta RN 01/17/21 11:32:11 [facility] Endo - Departure from OR Entry 1 Integumentary Assessment Integumentary WDL Assessment WDL Transfer/Handoff Transfer to PACU Phase I Post-op Transport Stretcher/Gurney Via Patient Transport Jerri Agrueta RN, Accompanied by ZHANNA CASTILLO CRNA Last Modified By: Jerri Argueta RN 01/17/21 11:32:12 [facility] Endo - Endoscopy Details Entry 1 Abdomen Procedure Soft, Non-Tender Assessment Procedure Abdomen 01/17/21 11:01:00 Assessment D/T Radio Frequency Ablation Abdominal Pressure Last Modified By: Jerri Argueta RN 01/17/21 11:32:17 [facility] Endo - Fire Risk Assessment Entry 1 Fire Info Surgical Site or 1- Yes Incision Above the Xyphoid Open O2 Source 1- Yes (Mask or Cannula) Available Ignition 1- Yes (ESU, Laser, Light Source) Fire Risk 3 Assessment Score Fire Score Fire Risk Yes Assessment Complete Fire Risk Paola Beltran RN Assessment Verified By Fire Risk 01/17/21 11:02:00 Assessment Verified Date/Time Fire Risk High Risk Protocol Yes Implemented Standard Fire Yes Safety Precautions Followed Last Modified By: Jerri Argueta RN 01/17/21 11:32:32 [facility] Endo - General Case Prosthetic Makeup Designer 1 Case Information OR Out of Department [facility] Case Level 1 Room Verified Yes Wound Class II - Clean-Contaminated Specialty General Anesthesia Type MAC ASA Class 4 Diagnosis Preop Diagnosis dysphagia Postop Same As Preop Yes Postop Diagnosis dysphagia Last Modified By: Jerri Argueta RN 01/17/21 11:32:54 [facility] Endo - Implant Log Entry 1 Type Implant (Synthetic) Implant Log Implant [id number] Identification Description Implant Quantity 1 Implant [id number] Identification Lot Number Implant Has an Yes Expiration Date Implant Expiration 04/19/22 Date Tissue Implant Last Modified By: Jerri Argueta RN 01/17/21 11:35:37 [facility] Endo - Intraoperative Assessment Entry 1 Valid History / Yes Physical in Chart Preoperative Yes Checklist Reviewed/Evaluated Patient is Latex No Sensitive Level of WDL Consciousness (WDL = Alert, Oriented to Person, Place, and Time) Last Modified By: Jerri Argueta RN 01/17/21 11:32:57 [facility] Endo - Intraoperative Equipment Entry 1 Equipment Intraop Monitoring Electrocardiogram Three lead placement (ECG) Electrode Placement Blood Pressure Arm, left upper Location Pulse Oximeter Hand, right Probe Site Antiembolic Devices Scopes Flexible Endoscopes Gastroscope Used Scope Serial e Number/Identificatio n Number Photo/Video Documentation Photo Yes Video No Last Modified By: Jerri Argueta RN 01/17/21 11:33:29 [facility] Endo - Patient Positioning Entry 1 Procedure EGD w Peg Tube Placement Body Position Supine Left Arm Position Resting at side Right Arm Position Resting at side Left Leg Position Uncrossed, parallel Right Leg Position Uncrossed, parallel Feet Uncrossed Yes Pressure Points Yes Checked Positioned By Jerri Argueta RN Position Verified Positioning Yes Verified by Surgeon Last Modified By: Jerri Argueta RN 01/17/21 11:33:51 [facility] Endo - Patient Positioning Audit 01/17/21 11:33:51 Process Camera Operator: [id number] Modifier: [id number] 1 <*> Procedure EGD w Peg Tube Placement [facility] Endo - Sign In Entry 1 Patient, Site, Yes Procedure Identified Surgical Consent Yes Confirmed Surgical Site N/A Marked by person performing procedure Airway Hypothermia Risk No Warming Measures No Taken Last Modified By: Jerri Argueta RN 01/17/21 11:33:42 [facility] Endo - Sign Out Entry 1 RN Confirmation Surgical Yes Procedure(s) Identified Instrument, Sponge N/A and Sharps Counts Correct/Documented Equipment Problems N/A Documented Specimen Labeled N/A Correctly Urinary Catheter N/A Documented in IView Safety Checklist Yes Elements Complete? RN Sign Out Jerri Argueta RN Signature RN Sign Out 01/17/21 11:24:00 Signature Date/Time Plan of Care Outcome - [...] of Care Outcome - Counts OUTCOME STATEMENT: N/A Absence of signs and symptoms of injury related to extraneous objects Last Modified By: Jerri Argueta RN 01/17/21 11:36:12 [facility] Endo - Sign Out Audit 01/17/21 11:36:12 Process Camera Operator: [id number] Modifier: [id number] <+> 1 Urinary Catheter Documented in IView [facility] Endo - Surgical Procedures Entry 1 Procedure EGD w Peg Tube Placement Primary Procedure Yes Primary Surgeon PEYTON BEATTY MD Start 01/17/21 11:12:00 Stop 01/17/21 11:20:00 Anesthesia Type MAC Specialty General Wound Class II - Clean-Contaminated Last Modified By: Jerri Argueta RN 01/17/21 11:33:59 [facility] Endo - Time Out Entry 1 Procedure to be EGD w Peg Tube Placement Performed Time Out Time Out Pause Time 01/17/21 11:11:00 All activity Yes suspended (unless life threatening emergency) Team Verbally Correct patient Confirms Information identity, Consent form is present and accurate, Agreement on the procedure to be done, Correct patient position, Relevant images/results properly labeled/appropriately displayed, Confirm antibiotics have been administered, Performed before each procedure if multiple procedures, Reconcile problems if responses among team members differ Antibiotic Yes Prophylaxis Administered Or In Progress Within the Last 60 Minutes Beta [place] N/A Administered Venous N/A Thromboembolism Prophylaxis Required Anticipated Critical Events Surgeon None expected Last Modified By: Jerri Argueta RN 01/17/21 11:34:32 Case Comments <None> Finalized By: Jerri Argueta RN Document Signatures Signed By: Jerri Argueta RN 01/17/21 11:36 Electronically signed by Olinda Payne Conversion Business Continuity Management Director Cerner at 11/10/2022 9:27 AM CDT documented in this encounter Plan of Treatment Not on file documented as of this encounter Visit Diagnoses Not on filedocumented in this encounter
--- OUTSIDE RECORDS SUMMARY | 2025-01-16 11:46 | XMS_ITS | Encounter Summary ---
Author Organization [facility] Address [address] [place] [address] Care Team Providers Care Supervisor Ticket Sales Name Role Phone Unavailable Primary Care Provider Unavailabl e Encounter Details Date Type Department Care Team (Late st Contact Info) Description 12/28/2020 Transcribed Document [facility] [place] Medicine [address] [place] [address] ProviderMacrina MD [address], [place] [id number] Social History Tobacco Use Types Packs/Day Years Used Date Smoking Tobacco: Never Assessed Sex and Gender Information Value Date Recorded Sex Assigned at Not on file Legal Sex Male 1:13 PM CDT Gender Identity Not on file Sexual Orientation Not on file documented as of this encounter Miscellaneous Notes * Cerner Conversion Note - Historical ProviderMD - 12/28/2020 12:31 PM CDT [facility] Authorization Entered On: 12/28/2020 12:31 EDT Performed On: 12/28/2020 12:31 EDT by ANGELA LOFTON RN-Utilization Review Primary Insurance Authorization Authorization and Policy Numbers : Insurance 1 Health Plan: MEDICARE Policy Number: [id number] Authorization Number: Insurance 2 Health Plan: [employer] Medicare Supplement Policy Number: [id number] Authorization Number: Insurance Primary Name : MEDICARE Policy Number: [id number] Authorized Service Begin Date-Primary : 12/27/2020 EDT Historical Authorization Comments-Primary : No Authorization Comments Found ANGELA LOFTON RN-Utilization Review - 12/28/2020 12:31 EDT Electronically signed by Olinda Payne Conversion Assembly Department Supervisor Cerner at 11/10/2022 9:18 AM CDT documented in this encounter Plan of Treatment Not on file documented as of this encounter Visit Diagnoses Not on filedocumented in this encounter
--- OUTSIDE RECORDS SUMMARY | 2025-01-16 11:46 | XMS_ITS | Encounter Summary ---
Author Organization [facility] Address [address] [place] [address] Care Team Providers Care Production Line Manager Name Role Phone Unavailable Primary Care Provider Unavailabl e Encounter Details Date Type Department Care Team (Late st Contact Info) Description 01/01/2021 Transcribed Document [facility] [place] Family Medicine [address] [place] [address] ProviderMacrina MD [address] [place] [address] Social History Tobacco Use Types Packs/Day Years Used Date Smoking Tobacco: Never Assessed Sex and Gender Information Value Date Recorded Sex Assigned at Not on file Legal Sex Male 1:13 PM CDT Gender Identity Not on file Sexual Orientation Not on file documented as of this encounter Miscellaneous Notes * Cerner Conversion Note - Macrina ProviderMD - 01/01/2021 5:00 AM CDT Height and Weight, Routine Entered On: 01/01/2021 5:52 EDT Performed On: 01/01/2021 5:00 EDT by PEEWEE SMITH RN Height and Weight, Routine Routine Weight Source : Bed scale Routine Weight Entry Format : Metric Routine Weight, Kilograms : 74.2 kg(Converted to: 163 lb 9 oz) Routine Weight Calculation : 74.2 kg Height Source : Measured Height Entry Format : Alexander Height, Feet : 0 ft Height, Inches : 67.75 Inch Clinical Height : 172.09 cm Body Surface Area (BSA), Routine : 1.87 m2 Body Mass Index (BMI), Routine : 25.05 kg/m2 PEEWEE SMITH RN - 01/01/2021 5:52 EDT documented in this encounter Plan of Treatment Not on file documented as of this encounter Visit Diagnoses Not on filedocumented in this encounter
--- OUTSIDE RECORDS SUMMARY | 2025-01-16 11:46 | XMS_ITS | Encounter Summary ---
Author Organization [email or web address] Address [address] [place] [address] Care Team Providers Care Unmanned Equipment Operator Name Role Phone Unavailable Primary Care Provider Unavailabl e Encounter Details Date Type Department Care Team (Late st Contact Info) Description 01/17/2021 Transcribed Document [facility] [place] [address] [place] [address] ProviderMacrina MD [address] [place] [address] Social History Tobacco Use Types Packs/Day Years Used Date Smoking Tobacco: Never Assessed Sex and Gender Information Value Date Recorded Sex Assigned at Not on file Legal Sex Male 1:13 PM CDT Gender Identity Not on file Sexual Orientation Not on file documented as of this encounter Miscellaneous Notes * Cerner Conversion Note - Macrina Cordova MD - 01/17/2021 11:49 AM CDT Patient: JOSE ADORNO Age: 80 Years Sex: Male : 1940 Assessment/Plan 80-year-old man with dysphagia and feeding difficulty after a complicated medical stay. Underwent PEG placement today. It was uneventful. Okay to use for medications beginning at 2 PM. Can begin tube feeds tomorrow morning if no issues. I have ordered antiplatelets to resume tomorrow. Family updated. VTE Prophylaxis - Medical Enoxaparin 40 mg, SubCutaneous, Inj, Daily, Routine, Start 01/18/21 9:00:00 EDT, 01/18/21 9:00:00 EDT (PEYTON BEATTY) Sequential Compression Device Start: 12/27/20 18:03:00 EDT, Bilateral, Continuous Order (EMEKA MADERA MD-CAT) Subjective No significant events, PEG today Vital Signs T: 36.7 ??C TMIN: 36.3 ??C TMAX: 36.7 ??C HR: 94(Monitored) RR: 20 BP: 148/61 SpO2: 94% Oxygen Settings (Last) Oxygen Therapy Mode: Room air (01/17/21 10:00:00) Oxygen Flow Rate: 2 Liter/Min (01/16/21 21:00:00) Intake & Output Totals Last 24 Hours (7a-7a) Input Total: 754 mL Output Total: 1000 mL Balance: -246 mL Physical Exam Comfortable in bed, regular rate and rhythm, normal work of breathing, abdomen soft, nontender Medications acetaminophen-HYDROcodone 325 mg-5 mg oral tablet, 2 Tab, Oral, Q4H, PRN albumin human 5% intravenous solution, 12.5 Gram= 250 mL, IntraVENous, Daily, PRN Ancef, 2 Gram= 50 mL, IV Piggyback, PREOP aspirin, 81 mg= 1 Tab, Oral, Daily [...] kg - 75 kg scale, SubCutaneous, Q6H Lactated Ringers Injection intravenous solution 1,000 mL, 1000 mL, IntraVENous Lexapro, 10 mg= 1 Tab, Oral, Daily lidocaine 1% preservative-free injectable solution, 0.5 mL, IntraDermal, 1-Time lisinopril, 5 mg= 1 Tab, Oral, BID [...] Tab, Oral, Q6H, PRN Pepcid, 20 mg= 2 mL, IV Push, 1-Time Pepcid, 20 mg= 1 Tab, Oral, Daily [...] Result Date/Time Sodium Level 133 mmol/L (Low) 01/17/2021 04:00 EDT Potassium Level 4.8 mmol/L 01/17/2021 04:00 EDT Chloride Level 98 mmol/L (Low) 01/17/2021 04:00 EDT Carbon Dioxide Level 29 mmol/L 01/17/2021 04:00 EDT Anion Gap 11 01/17/2021 04:00 EDT Glucose Level 88 mg/dL 01/17/2021 04:00 EDT Blood Urea Nitrogen 48 mg/dL (High) 01/17/2021 04:00 EDT Creatinine Level 1.00 mg/dL 01/17/2021 04:00 EDT eGFR >60 mL/min/1.73m2 01/17/2021 04:00 EDT eGFR NonAfrican >60 mL/min/1.73m2 01/17/2021 04:00 EDT Bun/Creatinine 48.0 (High) 01/17/2021 04:00 EDT Calcium Level 9.0 mg/dL 01/17/2021 04:00 EDT Device Comment 1 Notified Nurse RBV 01/17/2021 05:31 EDT Device Comment 1 Protocols Followed 01/16/2021 23:49 EDT Device Comment 1 Notified Nurse RBV 01/16/2021 12:05 EDT Glucose POC2 90 mg/dL 01/17/2021 05:31 EDT Glucose POC2 116 mg/dL (High) 01/16/2021 23:49 EDT Glucose POC2 118 mg/dL (High) 01/16/2021 12:05 EDT WBC 9.8 K/uL (High) 01/17/2021 04:00 EDT RBC 3.67 Million/uL (Low) 01/17/2021 04:00 EDT Hgb 10.4 g/dL (Low) 01/17/2021 04:00 EDT Hct 33.2 % (Low) 01/17/2021 04:00 EDT MCV 90.5 fL 01/17/2021 04:00 EDT MCH 28.3 pg 01/17/2021 04:00 EDT MCHC 31.3 Gram/dL (Low) 01/17/2021 04:00 EDT Platelet Count 464 K/uL (High) 01/17/2021 04:00 EDT MPV 11.7 fL 01/17/2021 04:00 EDT RDW 13.4 % 01/17/2021 04:00 EDT Slide Review No 01/17/2021 04:00 EDT documented in this encounter Plan of Treatment Not on file documented as of this encounter Visit Diagnoses Not on filedocumented in this encounter
--- OUTSIDE RECORDS SUMMARY | 2025-01-16 11:46 | XMS_ITS | Encounter Summary ---
Author Organization [facility] In [facility]atives Address [address] [place] [address] Care Team Providers Care Cartoonist Special Effects Name Role Phone Unavailable Primary Care Provider Unavailabl e Encounter Details Date Type Department Care Team (Late st Contact Info) Description 01/05/2021 Transcribed Document [facility] Pulm & Critical Care Medicine [address] [place] [address] [address] [place] [address] Erick Navarro MD [address] [facility] [address] [place] [address] Social History Tobacco Use Types Packs/Day Years Used Date Smoking Tobacco: Never Assessed Sex and Gender Information Value Date Recorded Sex Assigned at Not on file Legal Sex Male 1:13 PM CDT Gender Identity Not on file Sexual Orientation Not on file documented as of this encounter Miscellaneous Notes * Cerner Conversion Note - Erick Navarro MD - 01/05/2021 12:05 AM EDT Patient: JOSE ADORNO Age: 80 [...] 0.5 MCG/KG/. Awake and following commands, positive residential aide in bilateral hands. MRI brain yesterday revealed [...] are improving overall neuro status is better ICU day: 9 Vent day: 5, extubated 12/31 Reintubated 01/01 TLDL 12/27 Intake & Output Totals Last 24 Hours (7a-7a) Intake (76 Events) Continuous Infusions (191.9414 mL) Medications (583.65 mL) Tube Feeding (1150 mL) Tube Flush (390 mL) Output (19 Events) Chest Tube Output: (110 mL) Spence Catheter (3045 mL) Input Total: 2315.5914 mL Output Total: 3155 mL Balance: -839.4086 mL Review of Systems Unable to obtain: [...] Medical Aortic valve stenosis / SNOMED CT 641249325 / Confirmed At risk for sleep apnea / IMO [id number] / Confirmed Colorectal surgery / SNOMED CT 0643343114 / Confirmed HTN - Hypertension / SNOMED CT 9954366602 / Confirmed, Active Problems (13) Aortic stenosis, severe Aortic valve stenosis Arthritis of right knee At risk for sleep apnea Back pain, chronic Chronic anxiety Colorectal surgery Disorder of prostate GERD - Gastro-esophageal reflux disease H/O peripheral neuropathy HTN - Hypertension Hyperlipidemia Hypertension Physical Examination VS/Measurements Vitals Signs (last 24 hrs) Last Charted Minimum Maximum Mon HR 76 (JAN 04 23:00) 60 (JAN 04 03:00) 82 (JAN 04:) Resp Rate H 33 (JAN 04:00) L 13 (JAN 04 05:03) H 33 (JAN 04:) SBP 110 (JAN 04:00) L 86 (JAN 04:00) H 169 (JAN 04:00) DBP L 58 (JAN 04:00) L 51 (JAN 04:30) 80 (JAN 04:00) MAP 79 (JAN 04:) 65 (JAN 04:30) 114 (JAN 04:00) SpO2 98 (JAN 04 23:) 95 (JAN 04 06:00) 100 (JAN 04 11:47) Intake & Output Totals Last 24 Hours (7a-7a) Intake (76 Events) Continuous Infusions (191.9414 mL) Medications (583.65 mL) Tube Feeding (1150 mL) Tube Flush (390 mL) Output (19 Events) Chest Tube Output: (110 mL) Spence Catheter (3045 mL) Input Total: 2315.5914 mL Output Total: 3155 mL Balance: -839.4086 mL General: No acute distress, Intubated and sedated RASS 0. Eye: Pupils are equal, round and reactive to light, Extraocular movements are intact, Normal conjunctiva. HENT: Normocephalic, Oral ET tube. Mouth: Oral mucosa ( Dry ). Neck: Supple, No lymphadenopathy. Respiratory: Breath sounds are equal, Coarse breath sounds bilaterally with diminished breath sounds in bilateral bases.. Support: Chest tube ( X2 ). removed by cts 01/04 Cardiovascular: Normal rate, [...] review: Labs (Last four charted values) WBC 8.0 (CESAR 11) H 9.6 (CESAR 10) 9.0 (CESAR 09) H 11.7 (CESAR 08) HB L 7.3 (CESAR 11) L 8.1 (CESAR 10) L 7.7 (CESAR 09) L 8.7 (CESAR 08) HCT L 23.4 (CESAR 11) L 25.5 (CESAR 10) L 24.1 (CESAR 09) L 26.5 (CESAR 08) Plt L 143 (CESAR 11) L 147 (CESAR 10) 163 (CESAR 09) L 146 (CESAR 08) Na 145 (CESAR 11) 145 (CESAR 10) 143 (CESAR 09) 143 (CESAR 08) K 4.1 (CESAR 11) 4.0 (CESAR 10) 4.5 (CESAR 10) 3.7 (CESAR 10) Cl 112 (CESAR 11) 112 (CESAR 10) 111 (CESAR 09) 108 (CESAR 08) CO2 29 (CESAR 11) 30 (CESAR 10) 31 (CESAR 09) 28 (CESAR 08) BUN H 25 (CESAR 11) H 34 (CESAR 10) H 39 (CESAR 09) H 26 (CESAR 08) Cr 0.80 (CESAR 11) 0.80 (CESAR 10) 0.80 (CESAR 09) 0.70 (CESAR 08) Glu R H 130 (CESAR 11) H 138 (CESAR 10) H 129 (CESAR 09) 80 (CESAR 08) Ca L 8.1 (CESAR 11) L 7.7 (CESAR 10) L 7.8 (CESAR 09) L 8.3 (CESAR 08) Lactic 1.2 (CESAR 07) 1.4 (CESAR 06) 1.4 (CESAR 06) 1.7 (CESAR 06) PT 11.4 (CESAR 04) H 17.4 (CESAR 03) H 14.3 (CESAR 03) H 18.7 (CESAR 03) INR 1.1 (CESAR 04) H 1.7 (CESAR 03) H 1.4 (CESAR 03) H 1.8 (DEC 03) PTT 27.8 (DEC 05) H 62.4 (DEC 03) H 37.3 (DEC 03) H 55.9 (DEC 03) AST 32 (DEC 11) H 39 (DEC 10) 32 (DEC 09) H 50 (DEC 08) ALT 35 (CESAR 11) 33 (CESAR 10) 28 (CESAR 09) 33 (CESAR 08) ALK P 63 (DEC 11) 73 (CESAR 10) 65 (DEC 09) 71 (DEC 08) T Bili H 1.5 (DEC 11) H 1.3 (DEC 10) H 1.7 (DEC 09) H 2.3 (DEC 08) PTN L 5.2 (JAN 04) L 5.3 (DEC 10) L 5.1 (DEC 09) L 5.8 (DEC 08) ALB L 2.3 (DEC 11) L 2.1 (DEC 10) L 2.0 (DEC 09) L 2.5 (DEC 08) Troponin <0.015 (DEC 25) . Blood Gases [...] 05:03 PaO2/FiO2 calculated 189 NA 01/04/2021 05:03 JAN 04 04:14 145 112 H 25 / H 130 4.1 29 0.80 \ JAN 04 04:14 \ L 7.3 / 8.0 L 143 / L 23.4 \ Blood Gases (Current Encounter/Past 24 Hours) pH Art 7.46 HI 01/04/2021 08:09 pCO2 Art 40.0 01/04/2021 05:03 pO2 Art 75.6 LOW 01/04/2021 08:09 HCO3 Art 28.7 ME 01/04/2021 08:09 BE Art 4.5 ME 01/04/2021 08:09 sO2 Art 96.5 01/04/2021 05:03 [...] 05:03 PaO2/FiO2 calculated 189 NA 01/04/2021 05:03 Radiology Results (Last 48 hours) [id number] -- 12/27/2020 06:39 CR Chest 1 Vw Portable (01/03/2021 05:02) [...] dependent pleural effusions. Small on theleft and [id number] on the right side. These are associated withpartial lower lobe atelectasis. The lungs are otherwise clear. There isno significant adenopathy. Sternotomy and TAVR have been performed thereis no acute osseous abnormality..IMPRESSION: Left greater than right dependent pleural effusions.. MRI of the brain was reported to [...] team, including critical care team, CCRN, RT., Multiple Drum Sander Helper , case management and clinical pharmacist. I [...] in the morning patient was reintubated 01/01 Review of patient's chest x-ray revealed that he has a right lower lung infiltrate versus effusion evaluation with a bronchoscopy revealed minimal secretion with some mucus plugging status post therapeutic aspiration, and I asked nurse to proceed with CT scan of the chest to evaluate of effusions and if it is then proceed with CT thoracentesis prior to a trial of extubation in a.m. discussed with Pulmonary Acute hypoxic respiratory failure: Overall is [...] Neuro Sedated with Precedex and fentanyl goal rass0 acute encephalopathy multiple infarcts : hypotension and s/p TAVR physical deconditioning right upper ext flaccid and right lower exts weakness ; ( improved) MRI brain: multiple bilateral acute infarcts Overall patient strength had improved, note that the patient cough was weak previously when extubated Plan: Vent bundle Daily SAT/SBT for up to 2hrs TID Bedside bronch this am was done was positive mucus plugging in the right lower lobe, mild follow BAL, cultures CT chest WO followed by thoracentesis if needed Assess for extubation in a.m. I will give the patient the benefit of the doubt and if he fails he will be intubated and, trach care next week Duonebs prn S/P Lasix 20mg IV q8 -changed to diuril 500 mg q 12 x 2 doses S/P Albumin 12.5g q8 x 3 doses Sedation: Precedex, Fentanyl for goal RASS -1 [...] is border line.. Bowel regimen: Docusate, Senna, Miralax, add Movantik x1 CXR and labs in AM Full code Prognosis is guarded to poor Disposition intensive care unit Recommend eval in a.m. probable CT thoracentesis Recommend probable extubation in a.m. if patient failed then reintubated and trach early next week discussed with family thanks \ cydney cct 45 mins documented in this encounter Plan of Treatment Not on file documented as of this encounter Visit Diagnoses Not on filedocumented in this encounter
--- OUTSIDE RECORDS SUMMARY | 2025-01-16 11:46 | XMS_ITS | Encounter Summary ---
Author Organization [facility] Address [address] [place] [address] Care Team Providers Care Sponsorship Manager Name Role Phone Unavailable Primary Care Provider Unavailabl e Encounter Details Date Type Department Care Team (Late st Contact Info) Description 01/17/2021 Transcribed Document [facility] Family Medicine [facility] [address] ProviderMacrina MD [address] [place], [place] [id number] Social History Tobacco Use Types Packs/Day Years Used Date Smoking Tobacco: Never Assessed Sex and Gender Information Value Date Recorded Sex Assigned at Not on file Legal Sex Male 1:13 PM CDT Gender Identity Not on file Sexual Orientation Not on file documented as of this encounter Miscellaneous Notes * Cerner Conversion Note - Macrina Cordova MD - 01/17/2021 12:32 PM CDT Patient: JOSE ADORNO Age: 80 [...] 1012. 01/02/21: POD#6 Intubated and sedated on [id number]/hr and Precedex .6mcg/kg/min. He is also on [...] POD #21 going down for PEG today Review of Systems Constitutional: Weakness. Health Status Allergies: Allergic Reactions (Selected) No Known Allergies Physical Examination General: Alert and oriented, No acute distress. Respiratory: Respirations are non-labored. Breath sounds: Rhonchi present. Cardiovascular: Normal rate, 80 beats per minute, Regular rhythm, S1, S2, No edema. Integumentary: Warm, Dry. Neurologic: Alert, Oriented. Psychiatric: Cooperative, Appropriate mood & affect. Review / Management Results review: JAN 17 04:00 L 133 L 98 H 48 / 88 4.8 29 1.00 \ JAN 17 04:00 \ L 10.4 / H 9.8 H 464 / L 33.2 \ Blood Gases (Current [...] TF 50ml/hr Continue P.T. Transfer to [facility] Pt will need rehab when clinically ready 01/11/21 POD#15 O2 91% 2L/NC TF 50ml/hr Continue P.T. Awaiting transfer to [facility] 01/12/2021 POD #16 Continues tube feedings, tolerating Steady progress 01/13/2021 POD #17 ALINA Bebe Will need rehab placement 01/14/2021 POD #18 Patient still not cleared for PO [facility] has accepted the patient, but he needs a PEG. Will consult general surgery for PEG placement prior to transfer to [facility] 01/15/2021 POD #19 Planning to repeat swallow evaluation. Depending on results, may require PEG prior to transfer to [facility]. 01/16/2021: POD #20 Continue tube feedings PEG tomorrow per Dr. Rodriguez Spoke with , will contact [facility] tomorrow for bed availability once PEG is placed. 01/17/2021: POD #21 Failed swallow evaluation yesterday For PEG placement today. [facility] after PEG placement today if bed available. Diagnosis Anxiety - Pre-Op Diagnosis, Medical. Cardiac [...]
--- OUTSIDE RECORDS SUMMARY | 2025-01-16 11:46 | XMS_ITS | Encounter Summary ---
Author Organization [facility] Address [address] [place] [address] Care Team Providers Care Medicaid Eligibility Specialist Name Role Phone Unavailable Primary Care Provider Unavailabl e Encounter Details Date Type Department Care Team (Late st Contact Info) Description 01/03/2021 Transcribed Document [facility] Family Medicine [address] [place] [address] ProviderMacrina MD [address] [place] [address] Social History Tobacco Use Types Packs/Day Years Used Date Smoking Tobacco: Never Assessed Sex and Gender Information Value Date Recorded Sex Assigned at Not on file Legal Sex Male 1:13 PM CDT Gender Identity Not on file Sexual Orientation Not on file documented as of this encounter Miscellaneous Notes * Cerner Conversion Note - Historical ProviderMD - 01/03/2021 9:08 AM CDT Therapy Screen, PT Entered On: 01/03/2021 9:09 EDT Performed On: 01/03/2021 9:08 EDT by ARIANE PIERCE, PT Therapy Screen, PT Medical Chart Reviewed : Yes Person Providing Information : Nurse Screen Completed : Yes Additional Therapy Screen Comment : Discussed pt with Shahla HOWE who reports that pt is intubated and not ready for PT. She asked that we take pt off list and they will get a reorder when appropriate. ARIANE PIERCE, PT - 01/03/2021 9:08 EDT documented in this encounter Plan of Treatment Not on file documented as of this encounter Visit Diagnoses Not on filedocumented in this encounter
--- OUTSIDE RECORDS SUMMARY | 2025-01-16 11:46 | XMS_ITS | Encounter Summary ---
Author Organization [facility] In iatives Address [address] [place] [address] Care Team Providers Care Digester Cook Name Role Phone Unavailable Primary Care Provider Unavailabl e Encounter Details Date Type Department Care Team (Late st Contact Info) Description 01/11/2021 Transcribed Document [facility] Family Medicine [address] [place] [address] ProviderMacrina MD [address] [place], [place] [address] Social History Tobacco Use Types Packs/Day Years Used Date Smoking Tobacco: Never Assessed Sex and Gender Information Value Date Recorded Sex Assigned at Not on file Legal Sex Male 1:13 PM CDT Gender Identity Not on file Sexual Orientation Not on file documented as of this encounter Miscellaneous Notes * Cerner Conversion Note - Historical ProviderMD - 01/11/2021 5:00 AM CDT Chart Check - Review Order Profile Entered On: 01/11/2021 5:20 EDT Performed On: 01/11/2021 5:00 EDT by Jaja Jernigan Non Emp RN Chart Check Powerplans Initiated/Discontinued as Appropriate : Yes All Active Orders Reviewed : Yes Jaja Jernigan Non Emp RN - 01/11/2021 5:19 EDT documented in this encounter Plan of Treatment Not on file documented as of this encounter Visit Diagnoses Not on filedocumented in this encounter
--- OUTSIDE RECORDS SUMMARY | 2025-01-16 11:46 | XMS_ITS | Encounter Summary ---
Author Organization [facility] In iatives Address [address] [place] [address] Care Team Providers Care Hand Or Machine Paster Name Role Phone Unavailable Primary Care Provider Unavailabl e Encounter Details Date Type Department Care Team (Late st Contact Info) Description 12/30/2020 Transcribed Document [facility] [address] [place] [address] ProviderMacrina MD [address] [place], [place] [id number] Social History Tobacco Use Types Packs/Day Years Used Date Smoking Tobacco: Never Assessed Sex and Gender Information Value Date Recorded Sex Assigned at Not on file Legal Sex Male 1:13 PM CDT Gender Identity Not on file Sexual Orientation Not on file documented as of this encounter Miscellaneous Notes * Cerner Conversion Note - Historical ProviderMD - 12/30/2020 2:00 AM CDT Swimming Pool Installer Details Entered On: 12/30/2020 0:32 EDT Performed On: 12/30/2020 2:00 EDT by RON URENA RN Order Details Transport Mode Order Detail : Bed (including specialty) Isolation Precautions Order Detail : Standard Precautions Order Detail : N/A IV Order Detail : 1 Oxygen Order Detail : 1 Nurse Collect Order Detail : 1 Lift/Transfer : Maximal assist Central Line Order Detail : Yes Room Service : Not Appropriate Arterial Line : Yes Patient Needs Meds Crushed/Liquid : Yes Meds Administered Via Tube : Yes RON URENA RN - 12/30/2020 0:32 EDT documented in this encounter Plan of Treatment Not on file documented as of this encounter Visit Diagnoses Not on filedocumented in this encounter
--- OUTSIDE RECORDS SUMMARY | 2025-01-16 11:46 | XMS_ITS | Encounter Summary ---
Author Organization [employer] In [facility] Address [address] [place] [address] Care Team Providers Care Drafting Technician Name Role Phone Unavailable Primary Care Provider Unavailabl e Encounter Details Date Type Department Care Team (Late st Contact Info) Description 01/01/2021 Transcribed Document [facility] Pulm & Critical Care Medicine [address] [place] [address] [address] [place] [address] Erick Navarro MD [address] [facility] [address] [place] [address] Social History Tobacco Use Types Packs/Day Years Used Date Smoking Tobacco: Never Assessed Sex and Gender Information Value Date Recorded Sex Assigned at Not on file Legal Sex Male 1:13 PM CDT Gender Identity Not on file Sexual Orientation Not on file documented as of this encounter Miscellaneous Notes * Cerner Conversion Note - Erick Navarro MD - 01/01/2021 6:36 PM EDT Patient: JOSE ADORNO Age: 80 years Sex: Male : 1940 Associated Diagnoses: None Author: ERICK NAVARRO MD Pulmonary and Critical Care Attending Note Pulm and CCM Attending Note: I have performed personally face to face diagnostic evaluation of this patient, labs and radiology data were reviewed. Patient condition was reviewed in details during multidisciplinary Intensive care rounds with team, including critical care team, CCRN, RT., Exercise Rider , case management and clinical pharmacist. I [...] placed on the BiPAP then next day ( THIS AM ) morning patient was reintubated 01/01 DUE TO UNRESPONSIVENESS, RESP DISTRESS AND 100% FIO2 REQS ON nippv AND INABILITY TO PROTECT AIRWAYS POSSIBLE ASPIRATION INTO AIRWAYS : ASP PNEUMONIA SEPSIS IS HIGHLY LIKELY STROKE IS HIGHLY LIKELY THANKS ARI CCT 86 MINS DISCUSSED WITH STEPHEN Lugo AND KB , WELL i CALLED ON THE PHONE NURSE SHANIA WAS PRESENT documented in this encounter Plan of Treatment Not on file documented as of this encounter Visit Diagnoses Not on filedocumented in this encounter
--- OUTSIDE RECORDS SUMMARY | 2025-01-16 11:46 | XMS_ITS | Encounter Summary ---
Author Organization [facility] Address [address] [place] [address] Care Team Providers Care Robot Designer Name Role Phone Unavailable Primary Care Provider Unavailabl e Encounter Details Date Type Department Care Team (Late st Contact Info) Description 01/01/2021 Transcribed Document [facility] [place] [facility] [place] [address] ProviderMacrina MD [address] [place] [address] Social History Tobacco Use Types Packs/Day Years Used Date Smoking Tobacco: Never Assessed Sex and Gender Information Value Date Recorded Sex Assigned at Not on file Legal Sex Male 1:13 PM CDT Gender Identity Not on file Sexual Orientation Not on file documented as of this encounter Miscellaneous Notes * Cerner Conversion Note - Macrina Cordova MD - 01/01/2021 2:03 PM CDT DATE OF CONSULTATION: 01/01/2021 NEUROLOGY CONSULTATION REASON FOR CONSULT: Right-sided weakness. HISTORY OF PRESENT ILLNESS: This is an 80-year-old male with a history of severe aortic stenosis, hypertension, hyperlipidemia and cardiomyopathy, who was admitted December 27 for a TAVR procedure. He had been known to have severe aortic stenosis for some time, but had delayed having repair procedure due to the pandemic. He was having worsening symptoms of fatigue and weakness, which prompted him to pursue aortic valve repair this admission. That procedure was done on December 27, and postoperatively he became hypotensive, bradycardic and went into PEA arrest. He was coded and received epinephrine and other medications and also required intubation. He has been intubated and at times sedated since December 27. When he was taken off sedation several days ago, he was noted to have weakness, which by report was initially on the left side, but over the last 2 days has been on the right side. Since at least yesterday and possibly earlier, he has been flaccid in the right upper extremity with minimal movement in the right leg. There has been concern for possible stroke and therefore Neurology was asked to evaluate. Attempts were made to extubate the patient yesterday, but he did not tolerate this and required re-intubation. He did have a head CT several days ago, which showed no acute findings. On my evaluation, he is awake and able to shake and nod his head to questions, but as he remains intubated, could not participate for further history at this time. It should also be noted that postoperative course was complicated by pericardial tamponade, which required return to the operative room for drainage. PAST MEDICAL HISTORY: Severe aortic stenosis, now status post repair; hypertension; hyperlipidemia; peripheral neuropathy. HOME MEDICATIONS: 1. Gabapentin. 2. Atorvastatin. 3. Amlodipine. 4. Plavix. 5. Lisinopril. SOCIAL HISTORY: He is and typically lives with his . There is no reported use of alcohol, tobacco, or illicit drugs. FAMILY HISTORY: Not obtainable. REVIEW OF SYSTEMS: As per HPI. I cannot obtain any further from the patient. PHYSICAL EXAMINATION: GENERAL: The patient is intubated. He is not currently sedated. He was able to shake and nod his head appropriately to questions and did follow commands throughout the left side. Memory and orientation could not be further assessed. VITAL SIGNS: His blood pressure is 147/72, heart rate 66, temperature 99.9. CARDIAC: Currently showing normal sinus rhythm. Again, he is intubated. EXTREMITIES: Without clubbing, cyanosis, or edema. NEUROLOGIC: Speech could not be evaluated due to his intubated status. Again, he shakes his head and nods his head appropriately to questions. Cranial nerves do show some slight ptosis on the right. There may be some right facial weakness as well, but evaluation is limited given his current status. He was able to attend, tell visual dykes. On motor strength testing, the right upper extremity is flaccid. He did not withdraw or respond to pain in the right upper extremity. He was able to briefly raise the right leg against gravity and could move the foot on the right, although this was weaker than his left side. He appears to have full strength throughout his left side including intact sensation. Detailed coordination and sensory assessment could not be done due to his intubated status. I did not attempt deep tendon reflexes and could not ambulate the patient. DIAGNOSTIC STUDIES: IMAGING STUDIES: A head CT without contrast performed on December 29 showed atrophy with no acute abnormalities. I did review these images. An MRI is pending. He had an echocardiogram this admission with ejection fraction of 65%. Increased left atrial pressure was noted. There were no masses or thrombi. LABORATORY RESULTS: Labs have been reviewed. CMP is fairly unremarkable. His white count is 11.7, hemoglobin 8.7, platelets 146. ASSESSMENT/PLAN: An 80-year-old male who is status post a transcatheter aortic valve replacement procedure for severe aortic stenosis this admission with postoperative course complicated by cardiac arrest, pericardial tamponade, and ongoing respiratory failure. He is now noted to have right-sided hemiparesis, which is concerning for stroke and we are awaiting an MRI of the brain. Given his complicated hospital course including hypotension and cardiac arrest, he is certainly at high risk for stroke or other cerebral injury. I agree with an MRI of the brain. I have also put in a subset of the stroke order protocol including carotid Dopplers. He is already on aspirin and statin and these will be continued. He would not be a good candidate for further anticoagulation at this time given his recent bleeding and unstable status. I will go ahead and get Physical and Occupational therapy to evaluate and we will have to wait until he is extubated for speech therapy. He will very likely require inpatient rehab when he is ready for discharge. I did discuss this patient with Dr. Navarro and his bedside nurse. I will discuss with his family as they are available and we will continue to follow. /[id number] MD BECKY Moss/STACIE / BECKY / MODL /[id number] documented in this encounter Plan of Treatment Not on file documented as of this encounter Visit Diagnoses Not on filedocumented in this encounter
--- OUTSIDE RECORDS SUMMARY | 2025-01-16 11:46 | XMS_ITS | Encounter Summary ---
Author Organization [facility] Address [address] [place] [address] Care Team Providers Care Insurance Verification Representative Name Role Phone Unavailable Primary Care Provider Unavailabl e Encounter Details Date Type Department Care Team (Late st Contact Info) Description 01/03/2021 Transcribed Document [facility] Pulm & Critical Care Medicine [address] [place] [address] [address] [place] [address] Erick Navarro MD [address] [facility] [address] [place] [address] Social History Tobacco Use Types Packs/Day Years Used Date Smoking Tobacco: Never Assessed Sex and Gender Information Value Date Recorded Sex Assigned at Not on file Legal Sex Male 1:13 PM CDT Gender Identity Not on file Sexual Orientation Not on file documented as of this encounter Miscellaneous Notes * Cerner Conversion Note - Erick Navarro MD - 01/03/2021 6:05 PM EDT Patient: JOSE ADORNO Age: 80 [...] 0.5 MCG/KG/. Awake and following commands, positive vehicle fuel systems converter in bilateral hands. MRI brain yesterday revealed [...] right lower lung infiltrate, + Klebsiella pneumonia ICU day: 8 Vent day: 5, extubated 12/31 Reintubated 01/01 TLDL 12/27 Intake & Output Totals Last 24 Hours (7a-7a) Intake (86 Events) Continuous Infusions (441.1858 mL) Medications (449.21 mL) Other Intake (440 mL) Output (23 Events) Chest Tube Output: (160 mL) Spence Catheter (2310 mL) Input Total: 1330.3958 mL Output Total: 2470 mL Balance: -1139.6042 mL Review of Systems Unable to obtain: [...] Medical Aortic valve stenosis / SNOMED CT 803136827 / Confirmed At risk for sleep apnea / IMO [id number] / Confirmed Colorectal surgery / SNOMED CT 5445258871 / Confirmed HTN - Hypertension / SNOMED CT 2738377657 / Confirmed, Active Problems (13) Aortic stenosis, severe Aortic valve stenosis Arthritis of right knee At risk for sleep apnea Back pain, chronic Chronic anxiety Colorectal surgery Disorder of prostate GERD - Gastro-esophageal reflux disease H/O peripheral neuropathy HTN - Hypertension Hyperlipidemia Hypertension Physical Examination VS/Measurements Vitals Signs (last 24 hrs) Last Charted Minimum Maximum Mon HR 77 (JAN 03 16:46) 57 (JAN 03 04:00) 81 (JAN 03 13:00) Resp Rate L 12 (JAN 03 16:46) L 8 (JAN 02 22:00) H 26 (JAN 03 10:00) SBP H 146 (JAN 03 13:00) 94 (JAN 03 04:00) H 205 (JAN 03 10:00) DBP 68 (JAN 03 13:00) L 52 (JAN 03 02:00) H 93 (JAN 03 10:00) MAP 98 (JAN 03 13:00) 68 (JAN 03 04:00) 133 (JAN 03 10:00) SpO2 98 (JAN 03 16:46) 95 (JAN 03 10:00) 99 (JAN 03 11:31) Intake & Output Totals Last 24 Hours (7a-7a) Intake (86 Events) Continuous Infusions (441.1858 mL) Medications (449.21 mL) Other Intake (440 mL) Output (23 Events) Chest Tube Output: (160 mL) Spence Catheter (2310 mL) Input Total: 1330.3958 mL Output Total: 2470 mL Balance: -1139.6042 mL General: Intubated and sedated RASS -1 . Eye: Pupils are equal, round and [...] and gripped with both hands. RASS 0 TO -1 CAM ICU NEGATIVE . Psychiatric: Unable to assess. Review / Management Results review: Labs (Last four charted values) WBC H 9.6 (JAN 03) 9.0 (CESAR 09) H 11.7 (CESAR 08) H 13.4 (CESAR 07) HB L 8.1 (CESAR 10) L 7.7 (CESAR 09) L 8.7 (CESAR 08) L 8.8 (CESAR 07) HCT L 25.5 (CESAR 10) L 24.1 (CESAR 09) L 26.5 (CESAR 08) L 26.2 (CESAR 07) Plt L 147 (CESAR 10) 163 (CESAR 09) L 146 (CESAR 08) L 108 (CESAR 07) Na 145 (CESAR 10) 143 (CESAR 09) 143 (CESAR 08) 142 (CESAR 07) K 4.5 (CESAR 10) 3.7 (CESAR 10) 3.7 (CESAR 09) 3.6 (CESAR 08) Cl 112 (CESAR 10) 111 (CESAR 09) [...] 64 (CESAR 06) T Bili H 1.3 (JAN 03) H 1.7 (JAN 02) H 2.3 (JAN 01) H 2.2 (DEC 30) PTN L 5.3 (JAN 03) L 5.1 (JAN 02) L 5.8 (JAN 01) L 5.2 (DEC 30) ALB L 2.1 (JAN 03) L 2.0 (JAN 02) L 2.5 (JAN 01) L 2.4 (DEC 30) Troponin <0.015 (DEC 25) . Blood Gases (Current Encounter/Past 24 Hours) pH Art 7.46 HI 01/03/2021 07:48 pCO2 Art 41.1 01/03/2021 04:20 pO2 Art 76.4 LOW 01/03/2021 07:48 HCO3 Art 29.0 UT 01/03/2021 07:48 BE Art 4.7 UT 01/03/2021 07:48 sO2 Art 95.8 01/03/2021 04:20 tHb Art 8.0 [facility] 01/03/2021 07:48 FHHb 4.1 NA 01/03/2021 04:20 ctO2 10.6 NA 01/03/2021 04:20 FIO2 Art 40 01/03/2021 04:20 Delivery Device Type Art Ventilator 01/03/2021 04:20 Temperature, F Art 98.6 01/03/2021 04:20 Art Blood Gas (ABG) Site Right Radial 01/03/2021 04:20 Acceptable Grey's Test Art Acceptable NA 01/03/2021 04:20 Ventilator Mode Art AC NA 01/03/2021 04:20 Tidal Volume Set Art 440.0 NA 01/03/2021 04:20 Set Rate Art 14.0 NA 01/03/2021 04:20 CPAP/PEEP Art 8.0 01/03/2021 04:20 ABG Num of Draw Attempts 1 01/03/2021 04:20 PaO2/FiO2 calculated 191 01/03/2021 04:20 JAN 03 04:37 145 112 H 34 / H 138 4.5 30 0.80 \ JAN 03 04:37 \ [...] 01/03/2021 04:20 Radiology Results (Last 48 hours) [id number] -- 12/27/2020 06:39 CR Chest 1 Vw [...] unremarkable. IMPRESSION: Worsening pulmonary opacities consistent with worsening edema or pneumonia .Images reviewed, interpreted, and dictated by Dr. Christiano Gurrola.Transcribed by Mynor Moran(Sherron).I have personally viewed, interpreted and dictated the examination. Ihmeño read and agree with the above final transcribed report. Cr CHEST : Patient was increased vascular markings bilaterally, or worsening right lower lung infiltrate ETT good palce MRI of the brain was reported to have multiple acute infarcts bilateral mastoiditis. ] 12/14/2020 PFTS SPIROMETRY: 1. FVC 3.77 L, [...] team, including critical care team, CCRN, RT., Linoleum Layer , case management and clinical pharmacist. I [...] in the morning patient was reintubated 01/01 currently awake, he tolerated weaning trial and he is more responsive I might proceed with a bronchoscopy in am if ready to extubate to assess secretions and help with therapeutic bronch and see if we can give him the benefit of the doubt and re-extubate in am other das , if not improvement then i will ask CTS for trach ( early next week) Pulmonary Acute hypoxic respiratory failure: initially improved ---extubated ----> 12/31 then required NIPPV , poor cough, reintubated 01/01 secondary to PEA arrest Volume overload vs. TRALI due to multiple blood transfusion bilateral atelectasis and effusions acute pulm edema Klebsiella pneumonia, especially in the right lower [...] up to 2hrs TID Bedside bronch - in am \ follow BAL, cultures Duonebs prn Lasix 20mg IV q8 - reevaluate in AM changed to diuril 500 mg q 12 x 2 doses Albumin 12.5g q8 x 3 doses Sedation: [...] guarded to poor Disposition intensive care unit will eval in am condition in regard to edema , secretions and possible extyubation , if none then will work with him over the weekend and failed then trach early next week and peg thanks \ cydney cct 45 mins documented in this encounter Plan of Treatment Not on file documented as of this encounter Visit Diagnoses Not on filedocumented in this encounter
--- OUTSIDE RECORDS SUMMARY | 2025-01-16 11:46 | XMS_ITS | Encounter Summary ---
Author Organization [facility] Address [address] [place] [address] Care Team Providers Care Sewer Repairer Name Role Phone Unavailable Primary Care Provider Unavailabl e Encounter Details Date Type Department Care Team (Late st Contact Info) Description 01/03/2021 Transcribed Document [facility] [place] Medicine [address] [place] [address] ProviderMacrina MD [address] [place] [address] Social History Tobacco Use Types Packs/Day Years Used Date Smoking Tobacco: Never Assessed Sex and Gender Information Value Date Recorded Sex Assigned at Not on file Legal Sex Male 1:13 PM CDT Gender Identity Not on file Sexual Orientation Not on file documented as of this encounter Miscellaneous Notes * Cerner Conversion Note - Macrina ProviderMD - 01/03/2021 3:53 PM CDT Treatment Intervention, PT Entered On: 01/12/2021 13:25 EDT Performed On: 01/12/2021 11:30 EDT by VALENCIA LEONARD, OSMAR General Information, PT Visit Type, PT : Treatment Note Patient Orders : Order Date Order Ordering 12/27/2020 18:03 Consult to Physical Therapy Ordered By: EMEKA MADERA MD-CAT 01/01/2021 13:55 PT Evaluation and Treatment Ordered By: ANANDA QUILES MD-NEU 01/02/2021 11:49 Physical Therapy Eval and Treat Ordered By: ANANDA QUILES MD-NEU 01/03/2021 09:52 Physical Therapy Eval and Treat Ordered By: ANANDA QUILES MD-NEU 01/03/2021 15:53 PT Additional Treatment Ordered By: ARIANE PIERCE, PT Active Diagnoses : 12/28/2020 12:00 Anxiety disorder, unspecified 12/28/2020 12:00 Cardiac tamponade 12/28/2020 12:00 Essential (primary) hypertension 12/28/2020 12:00 Gastro-esophageal reflux disease without esophagitis 12/28/2020 12:00 Hemorrhage, not elsewhere classified 12/28/2020 12:00 Hyperlipidemia, unspecified 12/28/2020 12:00 Malignant neoplasm of colon, unspecified 12/28/2020 12:00 Nonrheumatic aortic (valve) stenosis 12/28/2020 12:00 Polyneuropathy, unspecified Therapy Diagnosis, PT : Decreased strength Admission Date : 12/27/2020 06:39 Assisted by, PT : conveyor technician/aide Personal Devices : Personal Devices No Devices Recorded Assistive Devices : Assistive Devices No Devices Recorded Precautions in Place : Fall prevention measures VALENCIA LEONARD, PT - 01/12/2021 13:19 EDT General Status Patient Received Status : Supine in bed Treatment Start Time : 01/12/2021 11:15 EDT Patient Left Status : Up in chair, RN/PCT informed, All needs met and within reach Treatment End Time : 01/12/2021 11:30 EDT Treatment Time : 15 Minute(s) Actual Treatment Time : 15 Minute(s) VALENCIA LEONARD, PT - 01/12/2021 13:19 EDT Functional Mobility Mobility Grid Supine to Sit : Rehab Moderate assistance Sit to Stand : Rehab Moderate assistance Bed to Chair : Rehab Moderate assistance Stand to Sit : Rehab Moderate assistance (Comment: of 2 [VALENCIA LEONARD, PT - 01/12/2021 13:19 EDT] ) Supine to Sit Device : Rails Sit to Stand Device : Belt, gait VALENCIA LEONARD, PT - 01/12/2021 13:19 EDT Gait Training/Assessment, PT Weight Bearing Status Maintained : Yes Weight Bearing Status : Full Gait Assistance Level : Assist, moderate (Comment: of 2 [VALENCIA LEONARD, PT - 01/12/2021 13:19 EDT] ) Walking Distance : 4 steps from bed to recliner Ambulatory Devices : Gait belt Gait Deviations : Yes Gait Training Comment : Pt has decreased step length and strength on RLE when standing in stance phase. VALENCIA LEONARD, PT - 01/12/2021 13:19 EDT Activity Tolerance, PT Activity Comment : Good for getting up to the chair. Pt is encouraged to begin amb with Rwx next visit. VALENCIA LEONARD, PT - 01/12/2021 13:19 EDT Cognitive Treatment, PT Orientation : Oriented x 4 Safety/Judgment Findings, PT : Fair Follows Basic Command Findings, PT : Yes VALENCIA LEONARD, PT - 01/12/2021 13:19 EDT Edu Topics Physical Therapy Education Grid Balance Training : Needs further teaching Bed Mobility Training : Needs further teaching Gait Training : Needs further teaching Role of Physical Therapy : Verbalizes understanding Therapeutic Exercises : Needs further teaching Transfer Training : Needs further teaching VALENCIA LEONARD, PT - 01/12/2021 13:19 EDT Indication Assesessment, PT Physical Therapy Indicated : Yes VALENCIA LEONARD, PT - 01/12/2021 13:19 EDT Plan of Care, PT PT Tx Plan/Goals Established w Patient : Yes VALENCIA LEONARD, PT - 01/12/2021 13:19 EDT Short Term Goals Stairs STG Grid Goal #1 Goal #2 Date Met : 01/10/2021 EDT 01/10/2021 EDT VALENCIA LEONARD, PT - 01/12/2021 13:19 EDT VALENCIA LEONARD, PT - 01/12/2021 13:19 EDT Strength STG Grid Goal #1 Goal #2 Activity : Bilateral lower extremity Bilateral upper extremity Muscle Grade : 3/fair 3/fair Date to Meet : 01/10/2021 EDT 01/10/2021 EDT Goal Status : Goal met Goal met Date Met : 01/10/2021 EDT 01/10/2021 EDT VALENCIA ELONARD, PT - 01/12/2021 13:19 EDT VALENCIA LEONARD, PT - 01/12/2021 13:19 EDT Longterm Goals Mobility/Bed Mobility LTG PT Grid Goal #1 Goal #2 Activity : Supine to sit Sit to stand Assist : Supervision or set-up Supervision or set-up Date to Meet : 01/17/2021 EDT 01/17/2021 EDT Goal Status : Progressing, continue Progressing, continue VALENCIA LEONARD, PT - 01/12/2021 13:19 EDT VALENCIA LEONARD, PT - 01/12/2021 13:19 EDT Ambulation LTG Grid Goal #1 Device : Walker, front wheel Distance : 100' Assist : Assist, minimal Date to Meet : 01/17/2021 EDT Goal Status : Intial Goal VALENCIA LEONARD, PT - 01/12/2021 13:19 EDT Treatment Note Subjective Comment : Pt seems depressed about his situation. He states, This wasn't supposed to happen. I was supposed to get the surgery and go home in a day or two. Now I have to go to rehab . Discussed getting inpatient rehab at [facility] to help him be more functional at home. Assessment : Good effort to get to EOB by himself but still weak and needing Mod A to complete. Able to do R knee extension against gravity and DF on R ankle. Needs to begin to amb. Plan for Treatment : Cont PTx. VALENCIA LEONARD, PT - 01/12/2021 13:19 EDT Pain Assessment Pain Scaled Used : 0-10 Pain scale Pain Score During-Intervention : 5 Pain Comment : Pt requests pain meds and RN, Michael, is informed. Pt said, All over for location of pain. VALENCIA LEONARD, PT - 01/12/2021 13:19 EDT Image 1 - Images currently included in the form version of this document have not been included in the text rendition version of the form. Anticipated Discharge Needs, OT/PT Anticipated Discharge to : Unit, rehabilitation VALENCIA LEONARD, PT - 01/12/2021 13:[address] [facility] PT Charges PT Ther Activities Ea 15 Min : 1 VALENCIA LEONARD PT - 01/12/2021 13:19 EDT documented in this encounter Plan of Treatment Not on file documented as of this encounter Visit Diagnoses Not on filedocumented in this encounter
--- OUTSIDE RECORDS SUMMARY | 2025-01-16 11:46 | XMS_ITS | Encounter Summary ---
Author Organization [employer] Address [address] [place] [address] Care Team Providers Care Exchange Architect Name Role Phone Unavailable Primary Care Provider Unavailabl e Encounter Details Date Type Department Care Team (Late st Contact Info) Description 12/28/2020 Transcribed Document [facility] Cardiology [address] [place] [address] Enrique Valle MD [address] [facility] [address] [place] [address] Social History Tobacco Use Types Packs/Day Years Used Date Smoking Tobacco: Never Assessed Sex and Gender Information Value Date Recorded Sex Assigned at Not on file Legal Sex Male 1:13 PM CDT Gender Identity Not on file Sexual Orientation Not on file documented as of this encounter Miscellaneous Notes * Cerner Conversion Note - Enrique Valle MD - 12/28/2020 8:00 AM EDT Patient: JOSE ADORNO Age: 80 years Sex: Male : 1940 Associated Diagnoses: None Author: ENRIQUE VALLE MD-CAR Basic Information PCP: Robert Batista MD Primary Numerical Analysis Group Manager: Arthur Gomez MD Subjective mechanical vent Health Status Current medications: Home Medications (6) Active amLODIPine 5 mg, Oral, Daily atorvastatin 20 mg oral tablet , Oral, At Bedtime gabapentin 300 mg, Oral, Daily gabapentin 600 mg, Oral, At Bedtime lisinopril 10 mg oral tablet 10 mg = 1 Tab, Oral, BID PriLOSEC 10 mg, Oral, BID , Medications (49) Active Scheduled: (16) #NaCl 0.9% [...] 24 hour output: Total 7,235 ml VS/Measurements Vitals Signs (last 24 hrs) Last Charted Minimum Maximum Apical HR H 124 (DEC 27 13:53) H 124 (DEC 27 13:53) H 124 (DEC 27 13:53) Mon HR 64 (DEC 28 07:00) 60 (DEC 27 20:45) 133 (DEC 27 13:45) Resp Rate 16 (DEC 28 07:00) L 4 (DEC 27 18:15) H 27 (DEC 27 15:30) SBP 94 (DEC 28 07:00) L 75 (DEC 27 18:45) H 175 (DEC 27 15:30) DBP L 51 (DEC 28 07:00) L 50 (DEC 27 18:45) H 93 (DEC 27 13:30) MAP 67 (DEC 28 07:00) 40 (DEC 27 10:26) 144 (DEC 27 15:30) SpO2 100 (DEC 28 07:00) L 92 (DEC 27 10:26) 100 (DEC 27 12:45) General: Intubated/Sedated. Eye: Normal conjunctiva. HENT: Normocephalic. Respiratory: Symmetrical chest wall expansion. Breath sounds: Bilateral, Rhonchi present. Support: Ventilator. Cardiovascular: Normal rate, Regular rhythm, Good pulses equal in all extremities. Gastrointestinal: Soft, Non-distended, Normal bowel sounds. Genitourinary: indwelling rocha catheter. Musculoskeletal: No deformity. Integumentary: Warm, Dry, Incision site: C/D/I. Neurologic: Intubated/Sedated. Psychiatric: Intubated/Sedated. Results Review DEC 28 05:20 H 151 H 118 14 / 90 4.2 29 0.80 \ DEC 28 05:20 \ L 8.3 / 7.4 L 124 / L 23.8 \ Radiology Results (Last 48 hours) [id number] -- 12/27/2020 06:39 CR Chest 1 Vw [...] s/p pericardiocentesis and surgical repain of LV [place]. PEA Arrest; CODE called 10 minutes to ROSC Mediastinal hemorrhage/Cardiac tamponade s/p emergent sternotomy; repair of left ventricular teat 12/27/2020 - Mechanical vent placed during surgery acute blood loss anemia s/p multiple blood products including 4 units of PRBCs, cryoprecipitate, platelets, and fresh frozen plasma Hypertension Nonischemic cardiomyopathy PLAN; 12/28/2020 Wean levophed. Possible extubation today. 12/27/2020 Transthoracic Aortic Valve Replacement. Risks and Benefits discussed. Patient Wishes to proceed. Further plans to follow post TAVR. documented in this encounter Plan of Treatment Not on file documented as of this encounter Visit Diagnoses Not on filedocumented in this encounter
--- OUTSIDE RECORDS SUMMARY | 2025-01-16 11:46 | XMS_ITS | Encounter Summary ---
Author Organization [facility] Address [address] [place] [address] Care Team Providers Care Technical Administrator Name Role Phone Unavailable Primary Care Provider Unavailshelly e Encounter Details Date Type Department Care Team (Late st Contact Info) Description 12/30/2020 Transcribed Document [facility] [place] Family Medicine [address] [place] [address] ProviderMacrina MD [address] [place] [address] Social History Tobacco Use Types Packs/Day Years Used Date Smoking Tobacco: Never Assessed Sex and Gender Information Value Date Recorded Sex Assigned at Not on file Legal Sex Male 1:13 PM CDT Gender Identity Not on file Sexual Orientation Not on file documented as of this encounter Miscellaneous Notes * Cerner Conversion Note - Historical ProviderMD - 12/30/2020 9:00 AM CDT Therapy Screen, PT Entered On: 12/30/2020 9:25 EDT Performed On: 12/30/2020 9:00 EDT by Earnestine Connor Physical Therapist Therapy Screen, PT Medical Chart Reviewed : Yes Person Providing Information : Nurse Screen Completed : Yes Additional Therapy Screen Comment : Patient remains intubated at this time and is not able to follow commands per nsg. PT to screen off orders and requested that when the patient is extubated, able to follow commands, and appropriate for skilled PTx new orders be placed. Nurse Malinda in (Comment: agreement. [Earnestine Connor Physical Therapist - 12/30/2020 9:21 EDT] ) Earnestine Connor Physical Therapist - 12/30/2020 9:21 EDT Electronically signed by [facility] Conversion Motorboat Operator Guanaco at 11/10/2022 9:05 AM CDT documented in this encounter Plan of Treatment Not on file documented as of this encounter Visit Diagnoses Not on filedocumented in this encounter
--- OUTSIDE RECORDS SUMMARY | 2025-01-16 11:46 | XMS_ITS | Encounter Summary ---
Author Organization [facility] Address [address] [place] [address] Care Team Providers Care Voltmeter Operator Name Role Phone Unavailable Primary Care Provider Unavailabl e Encounter Details Date Type Department Care Team (Late st Contact Info) Description 01/03/2021 Transcribed Document [facility] [place] [address] [place] [address] ProviderMacrina MD [address] [place], [place] [id number] Social History Tobacco Use Types Packs/Day Years Used Date Smoking Tobacco: Never Assessed Sex and Gender Information Value Date Recorded Sex Assigned at Not on file Legal Sex Male 1:13 PM CDT Gender Identity Not on file Sexual Orientation Not on file documented as of this encounter Miscellaneous Notes * Cerner Conversion Note - Historical ProviderMD - 01/03/2021 9:56 PM CDT Spiritual Care Assessment Entered On: 01/03/2021 21:56 EDT Performed On: 01/03/2021 21:56 EDT by LAVERN VALDIVIA Chaplain General Information Initial Visit : No Referred by : follow-up Ministry Provided to : Family/Significant other Ministry Comment/Summary Points : follow up visit as requested by family. provided encouragement and spiritual context. will continue to follow. LAVERN VALDIVIA Chaplain - 01/03/2021 21:56 EDT Electronically signed by Olinda Payne Conversion Customs Opener Verifier Packer Guanaco at 11/10/2022 9:10 AM CDT documented in this encounter Plan of Treatment Not on file documented as of this encounter Visit Diagnoses Not on filedocumented in this encounter
--- OUTSIDE RECORDS SUMMARY | 2025-01-16 11:46 | XMS_ITS | Encounter Summary ---
Author Organization [employer] Address [address] [place] [address] Care Team Providers Care Vision Impaired Teacher Name Role Phone Unavailable Primary Care Provider Unavailabl e Encounter Details Date Type Department Care Team (Late st Contact Info) Description 12/27/2020 Transcribed Document [facility] Cardiology [address] [place] [address] Danyelle Gomez MD [address] [facility] [address] [place] [address] Social History Tobacco Use Types Packs/Day Years Used Date Smoking Tobacco: Never Assessed Sex and Gender Information Value Date Recorded Sex Assigned at Not on file Legal Sex Male 1:13 PM CDT Gender Identity Not on file Sexual Orientation Not on file documented as of this encounter Miscellaneous Notes * Cerner Conversion Note - Danyelle Gomez MD - 12/27/2020 9:26 AM EDT Patient: JOSE ADORNO Age: 80 years Sex: Male : 1940 Associated Diagnoses: None Author: DANYELLE GOMEZ MD-CAR Basic Information PCP: Robert Batista MD Primary Obstetrics Gyn Physician: Danyelle Gomez MD Chief Complaint Severe Aortic Stenosis History of Present Illness 80 year old male with a history of HTN and NICM was diagnosed with severe aortic stenosis about a year ago. At that time he refused the TAVR procedure was somewhat concerned about being hospitalized especially in the context of the ongoing pandemic, along with some other family related pressing issues that delayed his decision, so he went for an aortic valvuloplasty as an outpatient. He has done very well and remained somewhat asymptomatic for several months. However, he currently reports that while he has had no chest pains, syncope or near syncope, heart failure hospitalization or symptoms of heart failure he does feel a declining functional capacity and easy fatigability. He is ready at this juncture to have his aortic valve replacement procedure. Patient presents today for elective TAVR. He reported to CP or Palpitation this morning. Review of Systems Constitutional: Fatigue. Eye: Negative except as documented in history of present illness. Ear/Nose/Mouth/Throat: Negative except as documented in history of present illness. Respiratory: Shortness of breath. Cardiovascular: Negative except as documented in history of present illness. Gastrointestinal: Negative except as documented in history of present illness. Genitourinary: Negative except as documented in history of present illness. Hematology/Lymphatics: Negative except as documented in history of present illness. Endocrine: Negative except as documented in history of present illness. Immunologic: Negative except as documented in history of present illness. Musculoskeletal: Negative except as documented in history of present illness. Integumentary: Negative except as documented in history of present illness. Neurologic: Alert and oriented X4. Psychiatric: Negative except as documented in history of present illness. Health Status No qualifying data available Home Medications (6) Active amLODIPine 5 mg, Oral, Daily atorvastatin 20 mg oral tablet , Oral, At Bedtime gabapentin 300 mg, Oral, Daily gabapentin 600 mg, Oral, At Bedtime lisinopril 10 mg oral tablet 10 mg = 1 Tab, Oral, BID PriLOSEC 10 mg, Oral, BID Current medications: Medications (12) Active Scheduled: (5) #NaCl 0.9% *FLUSH* inj 10 mL 10 mL, IV Push, Q12H aspirin 81 mg chew tab 81 mg 1 Tab, Oral, Daily ceFAZolin/D5w 2 Gram 50 mL, IV Piggyback, 1-Time clopidogrel 75 mg tab 75 mg 1 Tab, Oral, Daily senna/docusate 8.6/50 mg tab 1 Tab, Oral, BID Continuous: (2) lactated ringers 1,000 mL 1,000 mL, IntraVENous, 20 mL/Hr NaCl 0.9% TITRATE 500 mL 500 mL, IntraVENous, 30 mL/Hr PRN: (5) bisacodyl 10 mg supp 10 mg 1 Supp, Rectal, Daily magnesium hydroxide 8% liq 30 mL 30 mL, Oral, Daily nitroglycerin 0.4 mg tab # 25 btl 0.4 mg 1 Tab, SubLINgual, Q5Min ondansetron 4 mg/2 mL inj 4 mg 2 mL, IV Push, Q6H zolpidem 5 mg tab 5 mg 1 Tab, Oral, At Bedtime Problem list: All Problems Arthritis of right knee / [id number] / Confirmed At risk for sleep apnea / 24907424 / Confirmed Chronic anxiety / 872234597 / Confirmed Back pain, chronic / 418402091 / Confirmed Colorectal surgery / [id number] / Confirmed Disorder of prostate / 95646419 / Confirmed GERD - Gastro-esophageal reflux disease / [id number] / Confirmed H/O peripheral neuropathy / 519138673 / Confirmed Hyperlipidemia / 05683649 / Confirmed Hypertension / 99278146 / Confirmed Aortic stenosis, severe / 7076048767 / Confirmed Resolved: Cancer of colon / [id number] Histories No education data available. Social & Psychosocial Habits Alcohol 11/15/2019 Alcohol Use History, Social Habits No Substance Abuse 12/25/2020 Recreational Drug Use History No Recreational Drug Use Last 12 Months No Tobacco 11/15/2019 Smoking Status Never (less than 100 in l Past Medical History: Active Aortic valve stenosis (612328475) HTN - Hypertension (6986426938) Family History: Father Heart disease Mother Heart disease Procedure history: Valvuloplasty on 11/25/2019 at 79 Years. colon resection. choleycystectomy. inguinal hernia repair. Back procedure. Bilateral cataract surgery. left hand surgery. Physical Examination VS/Measurements Vitals Signs (last 24 hrs) Last Charted Minimum Maximum Temp 97.9 (DEC 27 06:00) 97.9 (DEC 27 06:00) 97.9 (DEC 27 06:00) Apical HR 64 (DEC 27 06:00) 64 (DEC 27 06:00) 64 (DEC 27 06:00) SBP H 174 (DEC 27 06:00) H 174 (DEC 27 06:00) H 174 (DEC 27 06:00) DBP 81 (DEC 27 06:00) 81 (DEC 27 06:00) 81 (DEC 27 06:00) SpO2 98 (DEC 27 06:00) 98 (DEC 27 06:00) 98 (DEC 27 06:00) General: Alert and oriented, No acute distress. Eye: Pupils are equal, round and reactive to light, Vision unchanged. HENT: Normocephalic, Oral mucosa is moist. Neck: Supple, Non-tender, No carotid bruit, No jugular venous distention. Respiratory: Lungs are clear to auscultation, Respirations are non-labored, Symmetrical chest wall expansion. Cardiovascular: Normal rate, Regular rhythm, Good pulses equal in all extremities, Normal peripheral perfusion. Systolic murmur: Consistent with ( Aortic stenosis ). Gastrointestinal: Soft, Normal bowel sounds. Musculoskeletal: Normal range of motion, Normal strength. Integumentary: Warm, Dry, [place]. Neurologic: Alert, Oriented. Psychiatric: Cooperative, Appropriate mood & affect. Review / Management Radiology Results (Last 48 hours) [id number] -- 12/27/2020 06:39 CR Chest 2 Vws (12/25/2020 12:40) Result: TWO VIEW CHEST HISTORY: Preoperative pulmonary clearance. COMPARISON: None.FINDINGS: The heart is normal in size. The mediastinum is unremarkable. The lungs are clear. There is no pneumothorax. The osseous structuresdemonstrate no acute abnormality. IMPRESSION: No acute cardiopulmonary process .Images reviewed, interpreted, and dictated by Dr. Sonny Alva.Transcribed by Alyse Cabrera PA-C.I have personally viewed, interpreted and dictated the examination. Ihave read and agree with the above final transcribed report. Results review: Labs (Last four charted values) WBC H 9.9 (DEC 25) HB 14.3 (DEC 25) HCT 42.2 (DEC 25) Plt 198 (DEC 25) Na 141 (DEC 25) K 3.7 (DEC 25) Cl 109 (DEC 25) CO2 28 (DEC 25) BUN 15 (DEC 25) Cr 0.70 (DEC 25) Glu R H 111 (DEC 25) Ca 9.0 (DEC 25) PT 11.4 (DEC 25) INR 1.1 (DEC 25) PTT 26.8 (DEC 25) AST 19 (DEC 25) ALT 20 (DEC 25) ALK P 107 (DEC 25) T Bili 1.0 (DEC 25) PTN 6.6 (DEC 25) ALB 3.4 (DEC 25) Troponin <0.015 (DEC 25) . Impression and Plan IMPRESSION: Aortic stenosis, severe 11/15/19 -[facility] no obstructive disease. BAV 09/19/19 - ECHO EF 40%. severe aortic stenosis peak P mean P.83 Hypertension Nonischemic cardiomyopathy PLAN; Transthoracic Aortic Valve Replacement. Risks and Benefits discussed. Patient Wishes to proceed. Further plans to follow post TAVR documented in this encounter Plan of Treatment Not on file documented as of this encounter Visit Diagnoses Not on filedocumented in this encounter
--- OUTSIDE RECORDS SUMMARY | 2025-01-16 11:46 | XMS_ITS | Encounter Summary ---
Author Organization [employer] [facility] Address [address] [place] [address] Care Team Providers Care Automotive Parts Salesperson Name Role Phone Unavailable Primary Care Provider Unavailabl e Encounter Details Date Type Department Care Team (Late st Contact Info) Description 01/03/2021 Transcribed Document [facility] [place] [address] [place] [address] ProviderMacrina MD [address] [place] [address] Social History Tobacco Use Types Packs/Day Years Used Date Smoking Tobacco: Never Assessed Sex and Gender Information Value Date Recorded Sex Assigned at Not on file Legal Sex Male 1:13 PM CDT Gender Identity Not on file Sexual Orientation Not on file documented as of this encounter Miscellaneous Notes * Cerner Conversion Note - Macrina ProviderMD - 01/03/2021 9:00 AM CDT NIH Stroke Scale *Q Entered On: 01/03/2021 15:11 EDT Performed On: 01/03/2021 9:00 EDT by Li Abraham RN-PATIENT CARE BEDSIDE NON-EXEMPT NIH Stroke Scale *Q NIH Assessment Interval : Other: qShift NIH Clinician Administering Scale : Li Abraham NIH Level of Consciousness (1A) : Not alert, but arousable NIH LOC Questions (1B) : Answers neither question correctly NIH LOC Commands (1C) : Performs both tasks correctly NIH Best Gaze (2) : Normal NIH Visual (3) : No visual loss NIH Facial Palsy (4) : Normal symmetrical movements NIH Motor Arm, Left (5A) : Some effort against gravity NIH Motor Arm, Right (5B) : No movement Motor Arm Right Unable to Assess Comment : Right arm flaccid NIH Motor Leg, Left (6A) : Some effort against gravity NIH Motor Leg, Right (6B) : Some effort against gravity NIH Limb Ataxia (7) : UN - Amputation or joint fusion Limb Ataxia, Unable to Assess Comment : pt sedated NIH Sensory (8) : Gayy-nm-osjghflt sensory loss (Comment: pt intubated and sedated [Li Abraham RN-PATIENT CARE BEDSIDE NON-EXEMPT - 01/03/2021 15:05 EDT] ) NIH Best Language (9) : Fgpm-bg-nigleysi aphasia (Comment: pt intubated and sedated; mouths words around tube [Li Abraham RN-PATIENT CARE BEDSIDE NON-EXEMPT - 01/03/2021 15:05 EDT] ) NIH Dysarthria (10) : UN - Intubated or other physical barrier NIH Dysarthria, Unable to Assess Comment : pt intubaed and sedated Extinction and Inattention (11) : Visual, tactile, auditory, spatial, or personal inattention NIH Scale Score : 16 Li Abraham RN-PATIENT CARE BEDSIDE NON-EXEMPT - 01/03/2021 15:05 EDT documented in this encounter Plan of Treatment Not on file documented as of this encounter Visit Diagnoses Not on filedocumented in this encounter
--- OUTSIDE RECORDS SUMMARY | 2025-01-16 11:46 | XMS_ITS | Encounter Summary ---
Author Organization [employer] Address [address] [place] [address] Care Team Providers Care Building Rental Manager Name Role Phone Unavailable Primary Care Provider Unavailabl e Encounter Details Date Type Department Care Team (Late st Contact Info) Description 01/11/2021 Transcribed Document [facility] Cardiology [address] [place] [address] Danyelle Gomez MD [address] [facility] [address] [place] [id number] Social History Tobacco Use Types Packs/Day Years Used Date Smoking Tobacco: Never Assessed Sex and Gender Information Value Date Recorded Sex Assigned at Not on file Legal Sex Male 1:13 PM CDT Gender Identity Not on file Sexual Orientation Not on file documented as of this encounter Miscellaneous Notes * Cerner Conversion Note - Danyelle Gomez MD - 01/11/2021 8:26 AM EDT Patient: JOSE ADORNO Age: 80 years Sex: Male : 1940 Associated Diagnoses: None Author: DANYELLE GOMEZ MD-CAR Basic Information PCP: Robert Batista MD Primary B Operator: Danyelle Gomez MD Subjective Sitting up in chair working with speech therapy. Health Status Current medications: Home Medications (6) [...] Intake and Output 24 hour intake: Total 1,490 ml 24 hour output: Total 1,625 ml VS/Measurements Vitals Signs (last 24 hrs) Last Charted Minimum Maximum Apical HR H 105 (JAN 10 21:41) H 105 (JAN 10 21:41) H 105 (JAN 10 21:41) Mon HR 102 (JAN 11 06:30) 91 (JAN 10 23:00) 110 (JAN 11 03:00) Resp Rate 19 (JAN 11 06:30) L 13 (JAN 10 17:00) H 36 (JAN 10 18:00) SBP 134 (DEC 18 06:00) 92 (JAN 10 22:00) H 174 (JAN 11 03:00) DBP 62 (JAN 11 06:00) L 50 (JAN 10 22:00) H 98 (JAN 10 12:00) MAP 89 (JAN 11 06:00) 62 (JAN 10 22:00) 121 (JAN 10 12:00) SpO2 L 91 (JAN 11 06:30) L 90 (JAN 11 04:00) 99 (JAN 10 15:36) General: Alert and oriented, No acute distress. [...] Appropriate mood & affect. Results Review JAN 11 04:57 139 107 H 33 / H 145 4.5 29 0.70 \ JAN 11 04:57 \ L 8.9 / H 13.5 H 415 / L 28.3 \ Radiology Results (Last 48 hours) [id number] -- 12/27/2020 06:39 CR Chest 1 Vw [...] personally viewed, interpreted and dictated the examination. aHmmad read and agree with the above final [...] s/p pericardiocentesis and surgical repair of LV [place]. PEA Arrest; CODE called 10 minutes to ROSC Mediastinal hemorrhage/Cardiac tamponade s/p emergent sternotomy; repair of left ventricular teat 12/27/2020 - Mechanical vent placed during surgery; extubated 01/05/21 acute blood loss anemia s/p Transfusions: 4 units of PRBCs, cryoprecipitate, platelets, and FFP Hypertension Nonischemic cardiomyopathy Neurologic changes; CVA CT - no acute changes. MRI - Multiple acute infarcts PLAN; 01/11/2021 The patient is still having fluctuations [...]
--- OUTSIDE RECORDS SUMMARY | 2025-01-16 11:46 | XMS_ITS | Encounter Summary ---
Author Organization [facility] Address [address] [place] [address] Care Team Providers Care Director Of Creative Services Name Role Phone Unavailable Primary Care Provider Unavailabl e Encounter Details Date Type Department Care Team (Late st Contact Info) Description 01/01/2021 Transcribed Document [facility] [place] Family Medicine [address] [place] [address] ProviderMacrina MD [address] [place], [place] 267361 Social History Tobacco Use Types Packs/Day Years Used Date Smoking Tobacco: Never Assessed Sex and Gender Information Value Date Recorded Sex Assigned at Not on file Legal Sex Male 1:13 PM CDT Gender Identity Not on file Sexual Orientation Not on file documented as of this encounter Miscellaneous Notes * Cerner Conversion Note - Historical ProviderMD - 01/01/2021 2:00 AM CDT Pre Fabricator Details Entered On: 01/01/2021 6:36 EDT Performed On: 01/01/2021 2:00 EDT by PEEWEE SMITH RN Order [...] Tube : Yes PEEWEE SMITH RN - 01/01/2021 6:35 EDT documented in this encounter Plan of Treatment Not on file documented as of this encounter Visit Diagnoses Not on filedocumented in this encounter
--- OUTSIDE RECORDS SUMMARY | 2025-01-16 11:46 | XMS_ITS | Encounter Summary ---
Author Organization [facility] [employer] [facility] Address [address] [place] [address] Care Team Providers Care Stone Rougher Name Role Phone Unavailable Primary Care Provider Unavailabl e Encounter Details Date Type Department Care Team (Late st Contact Info) Description 01/17/2021 Transcribed Document [facility] [place] [facility] [place] [address] ProviderMacrina MD [address] [place] [address] Social History Tobacco Use Types Packs/Day Years Used Date Smoking Tobacco: Never Assessed Sex and Gender Information Value Date Recorded Sex Assigned at Not on file Legal Sex Male 1:13 PM CDT Gender Identity Not on file Sexual Orientation Not on file documented as of this encounter Miscellaneous Notes * Cerner Conversion Note - Macrina Cordova MD - 01/17/2021 3:35 PM CDT On Going Discharge Planning Entered On: 01/17/2021 15:41 EDT Performed On: 01/17/2021 15:35 EDT by ASHLEY CHAIDEZ RN-Water Plant OperatorOutside Sales Associate Progress Note Discharge Arrangements : Patient Post-Acute Information Patient Name: JOSE ADORNO [facility]: [id number] Gender: Male : [birth year] Age: 80 Years [...] you Attend Multidisciplinary Rounds? : Yes ASHLEY CHAIDEZ, RN-Water Plant Operator - 01/17/2021 15:35 EDT Narrative Progress Note Narrative Progress Note : RAR Low ELOS: 3 days HD#21 Boost 6 80 year old male with history HTN, diagnosed with aotic stenosis a year ago but refused TVAR. He complained of declining functional capacity and easy fatiguability and presents for a TVAR. Consults: Pulmonary, CTS, Neurology 6/3 TVAR, Pericardial Window, emergent sternotomy for repair left ventricular tear, embolic stroke 01/17 PEG POD#21 O2 sat 96% on 2 liters. Telemetry NSR, right side hemiparesis, dysthria, Ambulated 3 feet around bed to chair with RWx modA. PEG placed today. No atending physician listed on Cerner. Admission H&P by Cardiology. CM contacted Katherin CHAIN MAKER LOOM CONTROL to confirm they would be writing discharge order and summary for patient discharge to [facility] tomorrow. DCP: [facility] tomorrow. Plan to transport by [facility]. Historical Progress Note : RAR Low ELOS: [...] around bed to chair with RWx modA. MBBS/TRAIN DISPATCHER: Recommend PEG, plan is placement tomorrow. DCP: [facility] after PEG placed. Patient has traditional MC will not need a PA. Plan to transport by [facility]. ASHLEY CHAIDEZ RN-Water Plant Operator - 01/16/21 17:33:58 RAR Low ELOS: 3 days HD#18 Boost [...] with RWx modA. DCP: Referral made to [facility], patient's 1st choice, via [facility]. bao Barnes said her MD would accept patient but would like for his PEG to be placed prior to discharge. Patient has traditional Medicare so he will not need a preauth. ASHLEY CHAIDEZ RN-Water Plant Operator - 01/14/21 15:53:43 HD#15; ELOS 3; LRR; BOOST 6; POD#15 - ElecTAVR/LVentTear/Tamponade = 02=1L; PR=478; TF/Corpak 50cc; voice improving; working w/ST for dysphagia; plan for repeat instrumental in 1 wk; ongoing therapy; spouse to provide choicing for STR; on transfer out of [facility]. SOPHY RM Rn-Water Plant Operator - 01/11/21 09:38:52 HD#14; ELOS 3; LRR; BOOST 6; POD#14 - ElecTAVR/LVentTear/Tamponade = 02=2L; BIPAP prn; Duonebs; Cefepime/Zosyn; FEES today; Cardiology managing Tacycardia; per LOS recommendation - pt referred to LTAC; likely DCP subacute rehab; anticipate transfer to floor soon. SOPHY RM Rn-Water Plant Operator - 01/10/21 08:19:07 HD#13; ELOS 3; LRR; BOOST 6; POD#13 - ElectiveTAVR/LVentTear/Tamponade - 02=2L; BIPAP prn for WOB/hs; Duonebs/IS/FVD encouraged; Patricio gtt; central line d/c //PICC placed; T=100; Maxipime; working with therapy - very weak; Mod-Max A x2 to EOB - not safe to stand; ST - failed/ongoing dysphagia tx; Corpak/TF; DCP rehab - improving. SOPHY RM Rn-Water Plant Operator - 01/09/21 07:48:59 HD#12; ELOS 3; LRR; BOOST 6; POD #12 - Electiv TAVR/LVentTear/Cardiac Tamponade SOPHY RM Rn-Water Plant Operator - 01/08/21 14:56:21 HD#12; ELOS 3; LRR; BOOST 6; POD #12 - Electiv TAVR/LVentTear/Cardiac Tamponade/Embolic Strokes w/ R side weakness; RA; IS/FVD encouraged; report pt with delerium/lethargy overnight - pulled out IV; PICC ordered today; R arm weakness; Corpak/TF - failed ST evaluation - improving; DCP Rehab; continue to follow SOPHY RM Rn-Water Plant Operator - 01/08/21 14:58:32 HD#11; ELOS 3; MRR; BOOST 6; POD#11 - Elective TAVR/LVentTear/Cardiac Tamponade; 02=2L; Maxipime/Ancef; IV Bumex; working w/therapy and stood at side of bed; SOPHY RM Rn-Water Plant Operator - 01/07/21 14:34:53 HD#11; ELOS 3; MRR; BOOST 6; POD#11 - Elective TAVR/LVentTear/Cardiac Tamponade; 02=2L; Maxipime/Ancef; IV Bumex; working w/therapy and stood at side of bed; ST - ongoing rec for NPO r/t dysphagia - tx; instrumental 3-4 days; Corpak/TF; DCP anticipate rehab; [facility] and [facility] w/post acute star ratings provided to pt for choicing. SOPHY RM Rn-Water Plant Operator - 01/07/21 14:36:37 HD#8; ELOS 3; LRR; BOOST 6; POD#8 - Elec TAVR/LVentTear/Cardiac Tamponade - intubated fi02 100; awake/calm/following commands; bronchoscopy scheduled today; SBT; T=101.2; MRI - diffuse scattered bilateral infarcts; Dr. Navarro states during MDR that if pt is unable to successfully wean over weekend will need trach/peg consult on Thursday; continue to follow; will need therapy evaluations when extubated. SOPHY RM Rn-Water Plant Operator - 01/04/21 15:16:12 HD#7; ELOS 3; LRR; BOOST 6; POD#7 - Elective TAVR/LVentTear/CardiacTamponade/Arrest - intubated fi02 40/peep 8; SBT x 2 hr; Fent/Precedex gtt; Corpak/TF; Humza CT in place; Neurology following - MRI diffuse scattered bilateral infarcts; pt w/improvement in movement of R side; PT/OT evaluations when extubated; DCP TBD - likely rehab. SOPHY RM Rn-Water Plant Operator - 01/03/21 15:03:09 HD#6; ELOS 3; LRR; BOOST 6; POD #6 - Electiv TAVR/L Vent Tear/Cardiac Tamponode/Arrest - reintubated 01/01; fi02 40; Levo/Fent/Precedex gtt; wean sedation - on SBT 2hr TID; T=99.9; Dr. Navarro states during MDR that pt's spouse aware may need trach/peg; DCP TBD pending progress. SOPHY RM Rn-Water Plant Operator - 01/02/21 14:55:12 HD#5; ELOS 3; LRR; BOOST 6; POD #5 - Elective TAVR/L Ventrial Tear/Cardiac Tamponode; extubated on 6/7 required reintubation today fi02 60/peep 8; Precedex/Fent gtt; Corpak/TF; IV Zosyn; CT draining; T=100; DCP TBD pending progress; will need therapy evals when appropriate. SOPHY RM Rn-Water Plant Operator - 01/01/21 14:47:57 HD#4; ELOS 3; LRR; POD#4 - Electiv TAVR; L Ventrical Tear; intubated fi02 50; Cardene gtt; Corpak to be placed and TF initiated; SBT today; following commands; Head MRI ordered; possible extubation post MRI; no movement noted on R side; will need PT/OT evaluations when extubated; DCP pending progress - likely rehab. SOPHY RM Rn-Water Plant Operator - 12/31/20 14:58:43 DCP TBD - pending progress; OP Cardiac Rehab referral placed thru [facility]. SOPHY RM Rn-Water Plant Operator - 12/28/20 12:42:03 ASHLEY CHAIDEZ RN-Water Plant Operator - 01/17/2021 15:35 EDT Electronically signed by Elmer, [facility] Conversion Laboratory Inspector Cerner at 11/10/2022 9:29 AM CDT documented in this encounter Plan of Treatment Not on file documented as of this encounter Visit Diagnoses Not on filedocumented in this encounter
--- OUTSIDE RECORDS SUMMARY | 2025-01-16 11:46 | XMS_ITS | Encounter Summary ---
Author Organization [facility] Address [address] [place] [address] Care Team Providers Care Decal Cutter Name Role Phone Unavailable Primary Care Provider Unavailabl e Encounter Details Date Type Department Care Team (Late st Contact Info) Description 01/01/2021 Transcribed Document [facility] Family Medicine [place] [address] ProviderMacrina MD [address] [place], [place] [id number] Social History Tobacco Use Types Packs/Day Years Used Date Smoking Tobacco: Never Assessed Sex and Gender Information Value Date Recorded Sex Assigned at Not on file Legal Sex Male 1:13 PM CDT Gender Identity Not on file Sexual Orientation Not on file documented as of this encounter Miscellaneous Notes * Cerner Conversion Note - Macrina Cordova MD - 01/01/2021 11:12 AM CDT Patient: JOSE ADORNO Age: 80 [...] morning but required reintubation at approx. 1012. Health Status Allergies: Allergic Reactions (Selected) No Known Allergies Physical Examination Intake and Output 24 hour intake: Total 1280 ml 24 hour output: Urinary catheter 4070 ml, Total 4710 ml MT 190ml and Rt CT 450ml / 24hrs VS/Measurements Vital Measurements 01/01/2021 10:12 EDT Oxygen Saturation 100 % Oxygen Therapy Mode Mechanical ventilation FiO2 100 % 01/01/2021 8:58 EDT Heart Rate Monitored 76 bpm 01/01/2021 8:00 EDT Systolic Blood Pressure 136 mmHg Diastolic Blood Pressure 69 mmHg Mean Arterial Pressure (MAP)-BMDI 98 Temperature Source Bladder Temperature Mode Fahrenheit Temperature, Celsius 38 Deg C Clinical Temperature, F 100.4 Deg F General: Intubated and sedated. HENT: Normocephalic. Neck: Supple. Respiratory: Breath sounds: Rhonchi present. Cardiovascular: Normal rate, 76 beats per minute, Regular rhythm, S1, S2, No edema. Integumentary: Warm, Dry. Review / Management Results review: JAN 01 01:51 143 108 H 26 / 80 3.6 28 0.70 \ JAN 01 01:51 \ L 8.7 / H 11.7 L 146 / L 26.5 \ Blood Gases (Current Encounter/Past 24 Hours) pH Art 7.50 HI 01/01/2021 04:52 pCO2 Art 34.6 LOW 01/01/2021 04:52 pO2 Art 91.7 01/01/2021 04:52 HCO3 Art 26.8 HI 01/01/2021 04:52 BE Art 3.8 FL 01/01/2021 04:52 sO2 Art 97.6 01/01/2021 04:52 [...] 04:52 PaO2/FiO2 calculated 92 NA 01/01/2021 04:52 Coagulation Results (Current Encounter/Past 24 Hours) No [...] On TF Neuro consult ordered by Pulm Diagnosis Anxiety - Pre-Op Diagnosis, Medical. Cardiac [...] - Pre-Op Diagnosis, Medical. Electronically signed by Olinda Payne Conversion Technology And Engineering Teacher Cerner at 11/10/2022 9:14 AM CDT documented in this encounter Plan of Treatment Not on file documented as of this encounter Visit Diagnoses Not on filedocumented in this encounter
--- OUTSIDE RECORDS SUMMARY | 2025-01-16 11:46 | XMS_ITS | Encounter Summary ---
Author Organization [facility] [facility] Address [address] [place] [address] Care Team Providers Care Malthouse Laborer Name Role Phone Unavailable Primary Care Provider Unavailabl e Encounter Details Date Type Department Care Team (Late st Contact Info) Description 01/03/2021 Transcribed Document [facility] Family Medicine [address] [place] [address] ProviderMacrina MD [address] [place] [address] Social History Tobacco Use Types [...] ProviderMD - 01/03/2021 9:52 AM CDT Evaluation, Occupational Therapy Entered On: 01/03/2021 14:48 EDT Performed On: 01/03/2021 14:08 EDT by Lauren Newberry OCCUPATIONAL THERAPIST NON-EXEMPT General Information, OT Visit Type, OT : Initial evaluation Patient Orders : Order Date Order Ordering 01/01/2021 13:55 OT Evaluation and Treatment Ordered By: ANANDA QUILES MD-NEU 01/03/2021 09:52 Occupational Therapy Evaluation and Treatme Ordered By: ANANDA QUILES MD-NEU Active Diagnoses : 12/28/2020 12:00 Anxiety disorder, unspecified 12/28/2020 12:00 Cardiac tamponade 12/28/2020 12:00 Essential (primary) hypertension 12/28/2020 12:00 Gastro-esophageal reflux disease without esophagitis 12/28/2020 12:00 Hemorrhage, not elsewhere classified 12/28/2020 12:00 Hyperlipidemia, unspecified 12/28/2020 12:00 Malignant neoplasm of colon, unspecified 12/28/2020 12:00 Nonrheumatic aortic (valve) stenosis 12/28/2020 12:00 Polyneuropathy, unspecified Therapy Diagnosis, OT : Decreased I with ADLs/functional mobility Onset of Problem, OT : 01/03/2021 EDT Admission Date : 12/27/2020 06:39 Co-treated by, OT : Physical Therapist Personal Devices : Personal Devices No Devices Recorded Assistive Devices : Assistive Devices No Devices Recorded General Information Comment, OT : 80 yo M, cardiac tamponade, aortic stenosis, stroke, currently intubated but alert Lauren Newberry OCCUPATIONAL THERAPIST NON-EXEMPT - 01/03/2021 14:34 EDT General Status Patient Received Status : Supine in bed, Restraint intact, HOB elevated Treatment Start Time : 01/03/2021 13:25 EDT Patient Left Status : Supine in bed, Restraint intact, Family/Visitors at bedside, Communication board completed, All needs met and within reach RN/PCT Informed Comment : RN wilmar'ed tx. Treatment End Time : 01/03/2021 13:46 EDT Treatment Time : 21 Minute(s) Lauren Newberry OCCUPATIONAL THERAPIST NON-EXEMPT - 01/03/2021 14:34 EDT History and Environment, OT Living Situation, Therapy : Home Patient Lives With : Spouse Persons Providing Information : Spouse Home Equipment, Therapy : None Lauren Newberry OCCUPATIONAL THERAPIST NON-EXEMPT - 01/03/2021 14:34 EDT Prior LOF Bathing, OT : Independent Prior LOF Bed Mobility : Independent Prior LOF Upper Body Dressing, OT : Independent Prior LOF Lower Body Dressing, OT : Independent Prior LOF Toileting : Independent Prior LOF Transfer : Independent Prior LOF Grooming, OT : Independent Prior LOF for IADLs, OT : Independent Lauren Newberry OCCUPATIONAL THERAPIST NON-EXEMPT - 01/03/2021 14:34 EDT Prior LOF Assist with ADL Comment : Per , pt was completely I with ADLs/IADLs/functional mobility prior to hospitalization. Lauren Newberry OCCUPATIONAL THERAPIST NON-EXEMPT - 01/03/2021 14:34 EDT Upper Extremity Upper Extremity Dominance : Left Right UE Active ROM : Impaired Left UE Active ROM : Impaired Right UE Strength Comment : Pt presents with 2-/5 strength in R UE. Left UE Strength Comment : 2+/5 strength L UE. Upper Extremity Comment : R UE is weaker than L UE, decreased coordination in B UEs. Lauren Newberry OCCUPATIONAL THERAPIST NON-EXEMPT - 01/03/2021 14:34 EDT Self Care/Home Management, OT Self Feeding Assist Level, OT : Activity does not occur Grooming Assist Level, OT : Assist, maximal Bathing Assist Level, OT : Assist, total Upper Body Dressing Assist Level, OT : Assist, total Lower Body Dressing Assist Level, OT : Assist, total Toileting Assist Level : Assist, total Toilet Transfer Assist Level : Assist, total Lauren Newberry OCCUPATIONAL THERAPIST NON-EXEMPT - 01/03/2021 14:34 EDT Cognition Assessment, OT Cognition Assessment Comment : Pt currently intubated and unable to answer orientation questions. Pt alert and able to follow commands for ROM/strength testing. Lauren Newberry OCCUPATIONAL THERAPIST NON-EXEMPT - 01/03/2021 14:34 EDT Indication Assessment, OT Occupational Therapy Indicated : Yes Problem List, OT : Impaired, bed mobility, Impaired, activities daily living, Impaired, coordination/proprioception, Impaired, endurance tolerance, Impaired functional mobility, Impaired, sitting balance, Impaired, strength, Impaired, transfers Lauren Newberry OCCUPATIONAL THERAPIST NON-EXEMPT - 01/03/2021 14:34 EDT Plan of Care, OT OT Tx Plan/Goals Established w Patient : Yes OT Frequency Rehab : Five days per week OT Duration Rehab : Fourteen days OT Treatments Planned : Activities of daily living, Balance training, Functional mobility training, Neuromuscular reeducation, Safety education, Therapeutic activities, Therapeutic exercises Lauren Newberry OCCUPATIONAL THERAPIST NON-EXEMPT - 01/03/2021 14:34 EDT Custom Miller Goals, OT Grooming LTG Grid Goal #1 Activity : Grooming Assist : Assist, minimal Date to Meet : 01/17/2021 EDT Goal Status : Initial goal Lauren Newberry OCCUPATIONAL THERAPIST NON-EXEMPT - 01/03/2021 14:34 EDT Bed Mobility/ Bed Transfer LTG Grid Goal #1 Activity : Bed Mobility, Supine to Sit Assist : Assist, maximal Date to Meet : 01/17/2021 EDT Goal Status : Initial goal Lauren Newberry OCCUPATIONAL THERAPIST NON-EXEMPT - 01/03/2021 14:34 EDT Other LTG Grid Goal #1 Goal : Pt will increase B UE strength to 3/5 to increase ability to engage in ADLs. Date to Meet : 01/17/2021 EDT Goal Status : Initial goal Lauren Newberry OCCUPATIONAL THERAPIST NON-EXEMPT - 01/03/2021 14:34 EDT Treatment Note Subjective Comment : Pt agreeable to therapy evaluation. Pt unable to state his goal or answer orientation questions due to pt currently intubated. Pts and son present during evaluation and able to provide PLOF information. Patient's Response to Treatment : Fair. Tolerated bed eval. BP: 147/71 Additional Objective Information : Bed eval completed with assessment of B UE and LE PROM/AROM and strength. Restraints removed for assessment but on at end of session. Pt able to follow commands for ROM/strength testing. Pt presents with weakness in R UE > L UE, decreased motor control B UEs. Completed UE AAROM exercises x10 reps. Pt provided with squeeze ball for B senior technologist strengthening. R UE positioned on pillow and educated on strategy for edema management due to swelling in R hand. Pt left with family present. Assessment : Patient would benefit from skilled OT to progress towards independence with ADLs and functional mobility. Patient was completely independent prior to hospitalization. Plan for Treatment : See goals. Lauren Newberry OCCUPATIONAL THERAPIST NON-EXEMPT - 01/03/2021 14:34 EDT Pain Assessment Pain Scaled Used : 0-10 Pain scale Pain Score Pre-Intervention : 0 Lauren Newberry OCCUPATIONAL THERAPIST NON-EXEMOSMAR - 01/03/2021 14:34 EDT Image 1 - Images currently included in the form version of this document have not been included in the text rendition version of the form. Anticipated Discharge Needs, OT/PT Anticipated Discharge to : Unit, rehabilitation Lauren Newberry OCCUPATIONAL THERAPIST NON-EXEMPT - 01/03/2021 14:[address] [facility] OT Charges OT Ther Activities Ea 15 Min : 1 OT Eval Moderate Complexity : 1 Lauren Newberry OCCUPATIONAL THERAPIST NON-EXEMOSMAR - 01/03/2021 14:34 EDT documented in this encounter Plan of Treatment Not on file documented as of this encounter Visit Diagnoses Not on filedocumented in this encounter
--- OUTSIDE RECORDS SUMMARY | 2025-01-16 11:46 | XMS_ITS | Encounter Summary ---
Author Organization [employer] [facility] Address [address] [place] [address] Care Team Providers Care Escrow Manager Name Role Phone Unavailable Primary Care Provider Unavailabl e Encounter Details Date Type Department Care Team (Late st Contact Info) Description 01/01/2021 Transcribed Document [address] [id number] Abby Rodrigues MD [address] [place] [address] Social History Tobacco Use Types Packs/Day Years Used Date Smoking Tobacco: Never Assessed Sex and Gender Information Value Date Recorded Sex Assigned at Not on file Legal Sex Male 1:13 PM CDT Gender Identity Not on file Sexual Orientation Not on file documented as of this encounter Miscellaneous Notes * Cerner Conversion Note - Abby Rodrigues MD - 01/01/2021 8:21 AM EDT Patient: JOSE ADORNO Age: 80 years Sex: Male : 1940 Associated Diagnoses: None Author: ABBY RODRIGUES MD-CAR Basic Information PCP: Robert Batista MD Primary Tooth Grinder: Arthur Gomez MD Subjective Extubated yesterday but required re-intubation. Extubated again this AM. Currently on BiPap Health Status Current medications: Home Medications (6) [...] = 1 Tab, Oral, BID , Medications (36) Active Scheduled: (15) #NaCl 0.9% [...] hrs) Last Charted Minimum Maximum Apical HR 85 (DEC 31 20:19) 76 (DEC 31 08:18) 85 (DEC 31 20:19) Mon HR 90 (JAN 01 06:00) 66 (DEC 31 09:00) 94 (JAN 01 05:00) Resp Rate H 21 (JAN 01 06:00) 15 (DEC 31 09:00) H 48 (JAN 01 05:46) SBP 138 (JAN 01 06:00) 125 (DEC 31 12:30) H 179 (JAN 01 03:00) DBP 69 (JAN 01 06:00) 61 (DEC 31 12:30) 86 (JAN 01 03:00) MAP 97 (JAN 01 06:00) 87 (DEC 31 12:30) 123 (JAN 01 03:00) SpO2 L 91 (JAN 01 06:00) L 89 (DEC 31 14:30) 100 (DEC 31 21:00) General: on bipap. Eye: Pupils are equal, [...] C/D/I. Neurologic: Alert, Oriented. Results Review JAN 01 01:51 143 108 H 26 / 80 3.6 28 0.70 \ JAN 01 01:51 \ L 8.7 / H 11.7 L 146 / L 26.5 \ Cardiac Markers (Current Encounter/Past 24 Hours) No Cardiac Marker Results Found (Past 24 Hours) Radiology Results (Last 48 hours) [id number] -- 12/27/2020 06:39 CR Chest 1 Vw [...] Alva.Transcribed by [place] PA-C, RBeatriceT. (N), C [...] Dr. Sonny Alva.Transcribed by [place] PA-C, RBeatriceTBeatrice (N), Kieran Bishop T.I have personally viewed, [...] s/p pericardiocentesis and surgical repair of LV [place]. PEA Arrest; CODE called 10 minutes to ROSC Mediastinal hemorrhage/Cardiac tamponade s/p emergent sternotomy; repair of left ventricular teat 12/27/2020 - Mechanical vent placed during surgery acute blood loss anemia s/p multiple blood products including 4 units of PRBCs, cryoprecipitate, platelets, and fresh frozen plasma Hypertension Nonischemic cardiomyopathy Neurologic changes; improved CT - no acute changes. PLAN; 01/01/2021 Extubated this Am. On Bipap. STill [...]
--- OUTSIDE RECORDS SUMMARY | 2025-01-16 11:46 | XMS_ITS | Encounter Summary ---
Author Organization [employer] [facility] Address [address] [place] [address] Care Team Providers Care Associate Director Career Services Name Role Phone Unavailable Primary Care Provider Unavailabl e Encounter Details Date Type Department Care Team (Late st Contact Info) Description 01/03/2021 Transcribed Document [facility] [place] [address] [place] [address] ProviderMacrina MD [address] [place] [address] Social History Tobacco Use Types Packs/Day Years Used Date Smoking Tobacco: Never Assessed Sex and Gender Information Value Date Recorded Sex Assigned at Not on file Legal Sex Male 1:13 PM CDT Gender Identity Not on file Sexual Orientation Not on file documented as of this encounter Miscellaneous Notes * Cerner Conversion Note - Macrina ProviderMD - 01/03/2021 2:49 PM CDT Treatment Intervention, OT Entered On: 01/15/2021 16:23 EDT Performed On: 01/15/2021 10:05 EDT by HAYDEE OH OTR/Ade General Information, OT Visit Type, OT : Treatment Note Patient Orders : Order Date Order Ordering 01/01/2021 13:55 OT Evaluation and Treatment Ordered By: ANANDA QUILES MD-NEU 01/03/2021 09:52 Occupational Therapy Evaluation and Treatme Ordered By: ANANDA QUILES MD-NEU 01/03/2021 14:49 Occupational Therapy Additional Tx Ordered By: Active Diagnoses : 12/28/2020 12:00 Anxiety disorder, unspecified 12/28/2020 12:00 Cardiac tamponade 12/28/2020 12:00 Essential (primary) hypertension 12/28/2020 12:00 Gastro-esophageal reflux disease without esophagitis 12/28/2020 12:00 Hemorrhage, not elsewhere classified 12/28/2020 12:00 Hyperlipidemia, unspecified 12/28/2020 12:00 Malignant neoplasm of colon, unspecified 12/28/2020 12:00 Nonrheumatic aortic (valve) stenosis 12/28/2020 12:00 Polyneuropathy, unspecified Therapy Diagnosis, OT : Decreased I with ADLs/functional mobility Admission Date : 12/27/2020 06:39 Co-treated by, OT : creative assistant (FIRST LEVELER) Personal Devices : Personal Devices No Devices Recorded Assistive Devices : Assistive Devices No Devices Recorded Precautions in Place : Fall prevention measures HAYDEE OH OTR/Ade - 01/15/2021 16:20 EDT General Status Patient Received Status : Supine in bed Treatment Start Time : 01/15/2021 9:42 EDT Patient Left Status : Up in chair, Chair alarm activated RN/PCT Informed Comment : Rn ok/d Treatment End Time : 01/15/2021 10:05 EDT Treatment Time : 23 Minute(s) HAYDEE OH OTR/Ade - 01/15/2021 16:20 EDT Self Care/Home Management, OT Toilet Transfer Assist Level : Assist, moderate HAYDEE HO OTR/Ade - 01/15/2021 16:20 EDT Functional Mobility Mobility Grid Supine to Sit : Rehab Moderate assistance Sit to Stand : Rehab Moderate assistance (Comment: x2 [HAYDEE OH OTR/Ade - 01/15/2021 16:20 EDT] ) Bed to Chair : Rehab Moderate assistance (Comment: x2 [HAYDEE OH OTR/Ade - 01/15/2021 16:20 EDT] ) Stand to Sit : Rehab Moderate assistance HAYDEE HO OTR/Ade - 01/15/2021 16:20 EDT Cognitive Treatment, OT Orientation : Oriented x 4 HAYDEE OH OTR/Ade - 01/15/2021 16:20 EDT Plan of Care, OT OT Tx Plan/Goals Established w Patient : Yes HAYDEE OH OTR/Ade - 01/15/2021 16:20 EDT Long-Term Goals, OT Grooming LTG Grid Goal #1 Activity : Grooming Assist : Assist, minimal Date to Meet : 01/17/2021 EDT Goal Status : Goal met Date Met : 01/14/2021 EDT HAYDEE OH OTR/L - 01/15/2021 16:20 EDT Bed Mobility/ Bed Transfer LTG Grid Goal #1 Goal #2 Activity : Bed Mobility, Supine to Sit Bed Mobility, Sit to Stand Assist : Assist, maximal Assist, minimal Date to Meet : 01/17/2021 EDT 01/28/2021 EDT Goal Status : Goal met Progressing, continue Date Met : 01/14/2021 EDT HAYDEE OH OTR/L - 01/15/2021 16:20 EDT HAYDEE OH OTR/L - 01/15/2021 16:20 EDT Other LTG Grid Goal #1 Goal : Pt will increase B UE strength to 3/5 to increase ability to engage in ADLs. Date to Meet : 01/17/2021 EDT Goal Status : Progressing, continue HAYDEE OH OTR/L - 01/15/2021 16:20 EDT Treatment Note Subjective Comment : Pt was agreeable Patient's Response to Treatment : Pt tolerated tx Additional Objective Information : Pt was found lying supine in bed. Pt was mod A for supine to sit, sit to stand, stand to sit, sit to stand, transfer to chair, stand to sit. Pt was leftsitting up in chair with all needs met, chair alarm activated, and call light within reach Assessment : Pt is progressing towards goals, no goals met today Plan for Treatment : Cont OT POC HAYDEE OH OTR/L - 01/15/2021 16:[address] [facility] OT Charges OT Ther Activities Ea 15 Min : 2 ALTHEA HAYDEE OTR/L - 01/15/2021 16:20 EDT documented in this encounter Plan of Treatment Not on file documented as of this encounter Visit Diagnoses Not on filedocumented in this encounter
--- OUTSIDE RECORDS SUMMARY | 2025-01-16 11:46 | XMS_ITS | Encounter Summary ---
Author Organization [facility] Address [address] [place] [address] Care Team Providers Care Surveillance Inspector Name Role Phone Unavailable Primary Care Provider Unavailabl e Encounter Details Date Type Department Care Team (Late st Contact Info) Description 01/01/2021 Transcribed Document [facility] [place] [address] [place] [address] ProviderMacrina MD [address] [place] [address] Social History Tobacco Use Types Packs/Day Years Used Date Smoking Tobacco: Never Assessed Sex and Gender Information Value Date Recorded Sex Assigned at Not on file Legal Sex Male 1:13 PM CDT Gender Identity Not on file Sexual Orientation Not on file documented as of this encounter Miscellaneous Notes * Cerner Conversion Note - Historical ProviderMD - 01/01/2021 9:49 AM CDT Consult Phone Call Documentation Entered On: 01/01/2021 15:01 EDT Performed On: 01/01/2021 9:49 EDT by Sue Hazel, Bead Worker SewingHealth Unit Coord Phone Call for Consults Consult Phone Call/Page Attempt : First call Consult Reason : CVA Consult, Additional Information : Sue Hahn, Bead Worker Sewing-Health Unit Coord - 01/01/2021 15:00 EDT documented in this encounter Plan of Treatment Not on file documented as of this encounter Visit Diagnoses Not on filedocumented in this encounter
--- OUTSIDE RECORDS SUMMARY | 2025-01-16 11:46 | XMS_ITS | Encounter Summary ---
Author Organization [facility] [employer] Address [address] [place] [address] Care Team Providers Care Rock Breaker Name Role Phone Unavailable Primary Care Provider Unavailabl e Encounter Details Date Type Department Care Team (Late st Contact Info) Description 12/28/2020 Transcribed Document [facility] [place] [address] [place] [address] ProviderMacrina MD [address] [place], [place] [id number] Social History Tobacco Use Types Packs/Day Years Used Date Smoking Tobacco: Never Assessed Sex and Gender Information Value Date Recorded Sex Assigned at Not on file Legal Sex Male 1:13 PM CDT Gender Identity Not on file Sexual Orientation Not on file documented as of this encounter Miscellaneous Notes * Cerner Conversion Note - Historical ProviderMD - 12/28/2020 2:00 AM CDT Real Estate Transaction Manager Details Entered On: 12/28/2020 3:44 EDT Performed On: 12/28/2020 2:00 EDT by Belem Lawson RN Order Details Isolation Precautions Order Detail : Standard Precautions Order Detail : N/A IV Order Detail : 1 Oxygen Order Detail : 1 Nurse Collect Order Detail : 1 Lift/Transfer : Maximal assist Central Line Order Detail : Yes Room Service : Not Appropriate Arterial Line : Yes Patient Needs Meds Crushed/Liquid : Yes Meds Administered Via Tube : Yes Belem Lawson RN - 12/28/2020 3:44 EDT documented in this encounter Plan of Treatment Not on file documented as of this encounter Visit Diagnoses Not on filedocumented in this encounter
--- OUTSIDE RECORDS SUMMARY | 2025-01-16 11:46 | XMS_ITS | Encounter Summary ---
Author Organization [facility] Address [address] [place] [address] Care Team Providers Care Nutritionists Name Role Phone Unavailable Primary Care Provider Unavailabl e Encounter Details Date Type Department Care Team (Late st Contact Info) Description 01/17/2021 Transcribed Document [facility] [place] [address] [place] [address] ProviderMacrina MD [address] [place], [place] [address] Social History Tobacco Use Types Packs/Day Years Used Date Smoking Tobacco: Never Assessed Sex and Gender Information Value Date Recorded Sex Assigned at Not on file Legal Sex Male 1:13 PM CDT Gender Identity Not on file Sexual Orientation Not on file documented as of this encounter Miscellaneous Notes * Cerner Conversion Note - Historical ProviderMD - 01/17/2021 10:35 AM CDT Event Note Entered On: 01/17/2021 11:04 EDT Performed On: 01/17/2021 10:35 EDT by Mariana Walsh RN Event Note Event Date/Time : 01/17/2021 10:35 EDT Description of Event : Dr. Rodriguez at patient's bedside to explain procedure and sign surgical consent. Mariana Walsh, SHYAM - 01/17/2021 11:03 EDT documented in this encounter Plan of Treatment Not on file documented as of this encounter Visit Diagnoses Not on filedocumented in this encounter
--- OUTSIDE RECORDS SUMMARY | 2025-01-16 11:47 | XMS_ITS | Encounter Summary ---
Author Organization [employer] [facility] Address [address] [place] [address] Care Team Providers Care Felt Hat Steamer Name Role Phone Unavailable Primary Care Provider Unavailabl e Encounter Details Date Type Department Care Team (Late st Contact Info) Description 01/03/2021 Transcribed Document [facility] [facility] [address] [place] [address] ProviderMacrina MD [address] [place] [address] Social History Tobacco Use Types Packs/Day Years Used Date Smoking Tobacco: Never Assessed Sex and Gender Information Value Date Recorded Sex Assigned at Not on file Legal Sex Male 1:13 PM CDT Gender Identity Not on file Sexual Orientation Not on file documented as of this encounter Miscellaneous Notes * Cerner Conversion Note - Macrina Cordova MD - 01/03/2021 9:40 AM CDT Patient: JOSE ADORNO Age: 80 years Sex: Male : 1940 Associated Diagnoses: None Author: ANANDA QUILES MD-ZURDO Subjective Pt is alert on vent, following all commands and attempting to communicate with hand gestures; denies pain Objective VS/Measurements Vital Signs/Vital Measures 01/03/2021 9:17 EDT Heart Rate Monitored 71 bpm 01/03/2021 8:00 EDT Systolic Blood Pressure 132 mmHg Diastolic Blood Pressure 71 mmHg Clinical Temperature, F 99.9 Deg F General: Pt is awake and alert on vent; able to shake/nod head appropriately and follows all commands. Eye: Pupils are equal, round and reactive to light, Left gaze preference, cannot cross midline to look right. Respiratory: intubated, breathing spontaneously. Cardiovascular: Normal rate, Regular rhythm. Neurologic: Right neglect noted with left gaze preference; facial movements poorly assessed, no clear droop. 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 Psychiatric: Cooperative. Results Review MRI brain- diffuse scattered bihemispheric and bilateral cerebellar infarcts, largest in left posterior frontal; this is per report, I am not able to view images at this time Labs reviewed Impression and Plan 80yo M admitted with severe aortic stenosis, s/p TAVR; post-op course complicated by cardiac arrest, cardiac tamponade requiring drainage, ongoing respiratory failure and severe anemia; he also has embolic acute strokes per MRI with right side weakness and neglect clinically. He is improving, strength better on right today than prior days. He is on aspirin and statin, will continue; do not see indication for anticoagulation at this time, and would be a poor candidate given recent severe bleeding and anemia. Strongly recommend to start PT/OT now as he can participate in therapy; speech therapy when appropriate post-extubation. He will likely need inpatient rehab when ready for discharge; will continue to follow. documented in this encounter Plan of Treatment Not on file documented as of this encounter Visit Diagnoses Not on filedocumented in this encounter
--- OUTSIDE RECORDS SUMMARY | 2025-01-16 11:47 | XMS_ITS | Encounter Summary ---
Author Organization [employer] [facility] Address [address] [place] [address] Care Team Providers Care Invasive Cardiovascular Technologist Name Role Phone Unavailable Primary Care Provider Unavailabl e Encounter Details Date Type Department Care Team (Late st Contact Info) Description 12/27/2020 Transcribed Document [facility] [place] Medicine [address] [place] [address] ProviderMacrina MD [address] [place] [address] Social History Tobacco Use Types Packs/Day Years Used Date Smoking Tobacco: Never Assessed Sex and Gender Information Value Date Recorded Sex Assigned at Not on file Legal Sex Male 1:13 PM CDT Gender Identity Not on file Sexual Orientation Not on file documented as of this encounter Miscellaneous Notes * Cerner Conversion Note - Macrina ProviderMD - 12/27/2020 6:36 PM CDT Spiritual Care Assessment Entered On: 12/27/2020 18:37 EDT Performed On: 12/27/2020 18:36 EDT by LAVERN VALDIVIA Chaplain General Information Initial Visit : No Referred by : Fudge Candy Maker follow-up Ministry Provided to : Patient, Family/Significant other LAVERN VALDIVIA Chaplain - 12/27/2020 18:36 EDT Spiritual Assessment Spiritual Assessment Comment/Summary Points : follow up visit as recommended by previous donor services team leader. Supportive presence and conversation provided for patient's , Evelia. Patient had to have an additional visit to surgery, making a total of three. Spirital Assessment Comment/Summary Report : SPIRITUAL ASSESSMENT COMMENT/SUMMARY Spiritual Assessment Comment/Summary 12/27/20 13:10:00 Follow up [...] BRISSA SULLIVAN DAVID L, Chaplain - 12/27/2020 18:36 EDT documented in this encounter Plan of Treatment Not on file documented as of this encounter Visit Diagnoses Not on filedocumented in this encounter
--- OUTSIDE RECORDS SUMMARY | 2025-01-16 11:47 | XMS_ITS | Encounter Summary ---
Author Organization [facility] Address [address] [place] [address] Care Team Providers Care Cap And Stud Machine Operator Name Role Phone Unavailable Primary Care Provider Unavailabl e Encounter Details Date Type Department Care Team (Late st Contact Info) Description 01/02/2021 Transcribed Document [facility] [place] Family Medicine [address] [place] [address] ProviderMacrina MD [address] [place], [place] [id number] Social History Tobacco Use Types Packs/Day Years [...] LAVERN VALDIVIA Chaplain - 01/02/2021 17:19 EDT Electronically signed by Olinda Payne Conversion Long Chain Dyeing Machine Operator Guanaco at 11/10/2022 9:27 AM CDT documented in this encounter Plan of Treatment Not on file documented as of this encounter Visit Diagnoses Not on filedocumented in this encounter
--- OUTSIDE RECORDS SUMMARY | 2025-01-16 11:47 | XMS_ITS | Encounter Summary ---
Author Organization [facility] Address [address] [place] [address] Care Team Providers Care Technical Programs Manager Name Role Phone Unavailable Primary Care Provider Unavailabl e Encounter Details Date Type Department Care Team (Late st Contact Info) Description 12/27/2020 Transcribed Document [facility] [place] [address] [place] [address] ProviderMacrina MD [address] [place] [address] Social History Tobacco Use Types Packs/Day Years Used Date Smoking Tobacco: Never Assessed Sex and Gender Information Value Date Recorded Sex Assigned at Not on file Legal Sex Male 1:13 PM CDT Gender Identity Not on file Sexual Orientation Not on file documented as of this encounter Miscellaneous Notes * Cerner Conversion Note - Macrina ProviderMD - 12/27/2020 5:41 PM CDT [facility] Main OR IntraOp Summary Primary Physician: EMEKA MADERA MD-CAT Finalized Date/Time: 12/31/20 11:28:04 Pt. Name: JOSE ADORNO Ade /Sex: 1940 Male Med Rec #: [id number] Physician: DANYELLE WALTERS MD-DOMENICA Financial #: [id number] Pt. Type: I Room/Bed: [facility] Admit/Disch: 12/27/20 06:39:00 - Institution: [facility] IntraOp Case Attendance Entry 1 Entry 2 Entry 3 Case Attendee EMEKA MADERA BURBERRY, KEITH, MD-Leonora Chamorro RN MD-CAT Role Performed Surgeon/Proceduralist, Anesthesiologist Dry Mill Worker, First First Time In 12/27/20 16:28:00 12/27/20 16:28:00 12/27/20 16:28:00 Time Out 12/27/20 18:11:00 12/27/20 18:11:00 12/27/20 18:11:00 Procedure Mediastinal Exploration Mediastinal Exploration Mediastinal Exploration Other Attendee Superficial Wound Closed By: Last Modified By: Leonora Joy RN Proffitt, Debbie, Leonora Davis RN 12/27/20 18:25:23 12/27/20 18:25:23 12/27/20 18:25:23 Entry 4 Entry 5 Entry 6 Case Attendee SHAYLA COWAN, IRVING MITCHELL, TAMEKA SANDERSON Role Performed Dry Mill Worker, Second Dry Mill Worker, Third Scrub, First Time In 12/27/20 16:28:00 12/27/20 16:28:00 12/27/20 16:28:00 Time Out 12/27/20 17:09:00 12/27/20 16:45:00 12/27/20 18:11:00 Procedure Mediastinal Exploration Mediastinal Exploration Mediastinal Exploration Other Attendee Superficial Wound Closed By: Last Modified By: Leonora Joy RN Proffitt, Debbie, Leonora Davis RN 12/27/20 18:25:23 12/27/20 18:25:23 12/27/20 18:25:23 Entry 7 Entry 8 Entry 9 Case Attendee JESSY GALLO MEECE, PAUL, PA-Manny Stratton RN Special Services Agent Role Performed Special Services Agent Physician geriatric nursing assistant Other Time In 12/27/20 16:28:00 12/27/20 16:50:00 12/27/20 16:28:00 Time Out 12/27/20 18:11:00 12/27/20 18:11:00 12/27/20 16:42:00 Procedure Mediastinal Exploration Mediastinal Exploration Mediastinal Exploration Other Attendee [facility] NURSE Superficial Wound Closed By: Last Modified By: Leonora Joy, Leonora Davis, Leonora Davis RN 12/27/20 18:25:23 12/27/20 18:25:23 12/27/20 18:31:39 Entry 10 Case Attendee Tracie Wong, Atomic Physics Professor-Student Nurse Role Performed Other Time In 12/27/20 16:28:00 Time Out 12/27/20 16:42:00 Procedure Mediastinal Exploration Other Attendee FROM [facility] Superficial Wound Closed By: Last Modified By: Leonora Joy RN 12/27/20 18:31:39 [facility] IntraOp Case Attendance Audit 12/27/20 18:31:39 Dispute Resolution Analyst: PROFITDE Modifier: PROFITDE <+> 9 Case Attendee <+> 9 Role Performed <+> 9 Time In <+> 9 Time Out <+> 9 Procedure <+> 9 Other Attendee <+> 10 Case Attendee <+> 10 Role Performed <+> 10 Time In <+> 10 Time Out <+> 10 Procedure <+> 10 Other Attendee 12/27/20 18:25:23 Dispute Resolution Analyst: PROFITDE Modifier: PROFITDE 1 <*> Procedure Mediastinal Exploration 2 <*> Procedure Mediastinal Exploration 3 <*> Procedure Mediastinal Exploration 4 <*> Procedure Mediastinal Exploration 5 <*> Procedure Mediastinal Exploration 6 <*> Procedure Mediastinal Exploration 7 <*> Procedure Mediastinal Exploration 8 <+> Time Out 8 <*> Procedure Mediastinal Exploration 12/27/20 18:22:52 Dispute Resolution Analyst: PROFITDE Modifier: PROFITDE <+> 8 Case Attendee <+> 8 Role Performed <+> 8 Time In <+> 8 Procedure 12/27/20 18:21:01 Dispute Resolution Analyst: PROFITDE Modifier: PROFITDE <+> 1 Procedure <+> 2 Procedure <+> 3 Procedure <+> 4 Procedure <+> 5 Procedure <+> 6 Procedure <+> 7 Procedure 12/27/20 18:20:49 Dispute Resolution Analyst: PROFITDE Modifier: PROFITDE 1 <-> Procedure Coronary Artery Bypass Graft 2 <+> Time Out 2 <-> Procedure Coronary Artery Bypass Graft 3 <+> Time Out 3 <-> Procedure Coronary Artery Bypass Graft 4 <-> Procedure Coronary Artery Bypass Graft 5 <-> Procedure Coronary Artery Bypass Graft 6 <+> Time Out 6 <-> Procedure Coronary Artery Bypass Graft 7 <+> Time Out 7 <-> Procedure Coronary Artery Bypass Graft [facility] IntraOp Case Times Entry 1 Patient In Room Time 12/27/20 16:28:00 Out Room Time 12/27/20 18:11:00 Anesthesia Start Time 12/27/20 16:28:00 Stop Time 12/27/20 18:11:00 Anesthesia Ready 12/27/20 16:28:00 Surgery / Procedure Times Start Time 12/27/20 17:41:00 Stop Time 12/27/20 17:58:00 Last Modified By: Leonora Joy RN 12/27/20 18:11:08 [facility] IntraOp Cautery Entry 1 ESU Identification Cautery Type Monopolar ESU ID Number [id number] ID Type Hospital Number Cautery Settings Cut Setting 40 Coag Setting 60 Blend Setting 2 ESU Grounding Pad Ground Pad Type Adult Grounding Pad Site Right Buttock Grounding Pad Leonora Joy RN Applied By Grounding Pad Site Warm, Dry, Intact Skin Condition Before Cautery Site Skin Condition WDL Before Comment Grounding Pad Site Unchanged Skin Condition After Cautery Site Skin Condition WDL After Comment Last Modified By: Leonora Joy RN 12/27/20 18:18:50 [facility] IntraOp Communication Entry 1 Communication To Other Comment CTVU INFORMED OF START AND CLOSING Communication By Leonora Joy RN Last Modified By: Leonora Joy RN 12/27/20 18:16:29 [facility] IntraOp Counts Verification Entry 1 Entry 2 Procedure Mediastinal Exploration Mediastinal Exploration Count Info Count Type Sponge, Sharps, Sponge, Sharps, Instrument, Instrument, Miscellaneous Miscellaneous Counts Verification Baseline/pre-procedure Before wound closure Sequence Count Results Not Applicable Correct, surgeon notified If Incorrect or Waived complete the Counts Action Taken form: If Intentional Retention, complete the Intential Retention form: Counts Performed By Count Performed By IRVING HEBERT, TAMEKA SANDERSON (Scrub) Count Performed By SHAYLA COWAN RN Proffitt, Debbie, RN (RN) Last Modified By: Leonora Joy RN Proffitt, Debbie, RN 12/27/20 18:21:02 12/27/20 18:21:02 [facility] IntraOp Counts Verification Audit 12/27/20 18:21:02 Dispute Resolution Analyst: PROFITDE Modifier: PROFITDE <+> 1 Procedure <+> 2 Procedure 12/27/20 18:20:50 Dispute Resolution Analyst: PROFITDE Modifier: PROFITDE 1 <-> Procedure Coronary Artery Bypass Graft 2 <-> Procedure Coronary Artery Bypass Graft 12/27/20 18:17:53 Dispute Resolution Analyst: PROFITDE Modifier: PROFITDE <+> 2 Procedure <+> 2 Count Type <+> 2 Counts Verification Sequence <+> 2 Count Results <+> 2 Count Performed By (Scrub) <+> 2 Count Performed By (RN) [facility] IntraOp Counts Final Entry 1 Procedure Mediastinal Exploration Final Count Info Count Type Sponge, Sharps, Miscellaneous Counts Verification Skin Closure/end of Sequence procedure Count Results Correct, surgeon notified Counts Performed By Count Performed By TAMEKA REDD (Scrub) Count Performed By Leonora Joy RN (RN) Last Modified By: Leonora Joy RN 12/27/20 18:21:02 [facility] IntraOp Counts Final Audit 12/27/20 18:21:02 Dispute Resolution Analyst: PROFITDE Modifier: PROFITDE <+> 1 Procedure 12/27/20 18:20:50 Dispute Resolution Analyst: PROFITDE Modifier: PROFITDE 1 <-> Procedure Coronary Artery Bypass Graft [facility] IntraOp Departure from OR Entry 1 Integumentary Assessment Integumentary WDL with patient Assessment WDL specific variances Patient's Normal PREOP, PLUS NEW Integumentary INCISION STERNAL Variance(s) Transfer/Handoff Transfer to ICU - Cardiovascular Handoff Method Bedside/Face to face, Phone call Handoff Reported to Manny Spencer RN Post-op Transport Bed (including Via specialty) Patient Transport JEISON CRUZ, Accompanied by SILKE, JESSY GALLO, Special Services Agent, NIDIA HOOPER PA-UNK Last Modified By: Leonora Joy RN 12/27/20 18:23:11 [facility] IntraOp Departure from OR Audit 12/27/20 18:23:11 Dispute Resolution Analyst: PROFITDE Modifier: PROFITDE 1 <*> Patient Transport Accompanied by JESSY GALLO Perfusionist [facility] IntraOp Drains and Tubes Entry 1 Device Type Chest Tube Size 36 FR. RIGHT ANGLED X 2 Drain/Tube Activity Inserted, Tube secured/stabilized Drain/Tube Suction Continuous high Drain/Tube Drainage None Device Location MEDIASTINUM Method of Drainage Active Chest Tubes Water-Seal 20 cm suction Connectivity Last Modified By: Leonora Joy RN 12/27/20 18:23:57 [facility] IntraOp Dressing and Packing Entry 1 Location CHEST Applied By NIDIA HOOPER PA-UNK Other Comments TEGADERM AND AQUACEL Last Modified By: Leonora Joy RN 12/27/20 18:32:08 [facility] IntraOp Fire Risk Assessment Entry 1 Fire Info Surgical Site or 1- Yes Incision Above the Xyphoid Open O2 Source 0- No (Mask or Cannula) Available Ignition 1- Yes (ESU, Laser, Light Source) Fire Risk 2 Assessment Score Fire Score Fire Risk Yes Assessment Complete Fire Risk Leonora Joy RN Assessment Verified By Fire Risk 12/27/20 16:28:00 Assessment Verified Date/Time Fire Risk Standard Fire Yes Safety Precautions Followed Last Modified By: Leonora Joy RN 12/27/20 18:19:13 [facility] IntraOp General Case Firer Portable Boiler 1 Case Information OR OR 14 [facility] Case Level 2 Room Verified Yes Wound Class I - Clean Specialty Cardio Thoracic Anesthesia Type General ASA Class 4E Diagnosis Preop Diagnosis cardiac tamponade Postop Same As Preop Yes Postop Diagnosis cardiac tamponade Last Modified By: Leonora Joy RN 12/27/20 18:13:36 [facility] IntraOp Implant Log Entry 1 Implant Log Implant PATCH VASC FELT 1.65MM Identification [id number] Description Implant Quantity 1 Implant Site HEART Implant [id number] Identification Lot Number Implant Cr Bard:Peripheral Vasc Identification Digital Research Analyst Name: Implant [id number] Identification Catalog Number Implant Has an Yes Expiration Date Implant Expiration 04/23/24 Date Tissue Implant Implant Type Comment USED FOR THICKER PLEDGETS Last Modified By: Leonora Joy RN 12/27/20 18:28:44 [facility] IntraOp Intraoperative Assessment Entry 1 Handoff Method Online nursing summary Valid History / Yes Physical in Chart Preoperative Yes Checklist Reviewed/Evaluated Allergies Reviewed Yes Patient is Latex No Sensitive Isolation Not applicable Precautions Noted Level of WDL Consciousness (WDL = Alert, Oriented to Person, Place, and Time) Patient's Normal WDL Level of Consciousness Variance(s) Skin Assessment Yes Verified Present Upon IVs Arrival to OR Last Modified By: Leonora Joy RN 12/27/20 18:20:31 [facility] IntraOp Intraoperative Equipment Entry 1 Equipment Intraop Monitoring Electrocardiogram Five lead placement (ECG) Electrode Placement Blood Pressure Arterial Pressure Line Source Blood Pressure Arterial Location Pulse Oximeter Hand, right Probe Site Antiembolic Devices Scopes Photo/Video Documentation Last Modified By: Leonora Joy RN 12/27/20 18:26:37 [facility] IntraOp Medication Admin Entry 1 Medication/Irrigant CEFAZOLIN Route of ON MOIST LAPS TO STERNUM Administration Dose Dose 2 Unit of Measure gram Administered By EMEKA MADERA MD-CAT Procedure Irrigation Last Modified By: Leonora Joy RN 12/27/20 18:24:52 [facility] IntraOp Patient Positioning Entry 1 Procedure Mediastinal Exploration Body Position Supine Left Arm Position Tucked and padded at side Right Arm Position Tucked and padded at side Left Leg Position Uncrossed, parallel Right Leg Position Uncrossed, parallel Feet Uncrossed Yes Pressure Points Yes Checked Device Position TEMPURPEDIC MATTRESS, BILATERAL ULNAR NERVE PROTECTORS Positioned By JEISON CRUZ MD-ANS, Leonora Joy RN, SHAYLA COWAN RN Position Verified Positioning Yes Verified by Anesthesia Positioning Yes Verified by Surgeon Last Modified By: Leonora Joy RN 12/27/20 18:30:14 [facility] IntraOp Sign In Entry 1 Patient, Site, Yes Procedure Identified Surgical Consent No, unable to assess - Confirmed Emergent case Surgical Site N/A Marked by person performing procedure Anesthesia Machine Yes Check Completed Medication Checks Yes Completed Allergies Yes Airway Difficult No Airway/Aspiration Risk Difficult No Airway/Aspiration Intervention Equipment Available Blood Loss Risk Yes Blood Loss Yes Intervention Equipment Prepared and Ready Blood Identifiers Yes Verified Per Policy Hypothermia Risk Yes Warming Measures Yes Taken Last Modified By: Leonora Joy RN 12/27/20 18:25:21 [facility] IntraOp Sign Out Entry 1 RN Confirmation Surgical Yes Procedure(s) Identified Instrument, Sponge Yes and Sharps Counts Correct/Documented Equipment Problems N/A Documented Specimen Labeled N/A Correctly Urinary Catheter N/A Documented in IView Eason Patient Yes Recovery Concerns Reviewed with Anesthesia Provider, Surgeon and RN Eason Patient Yes Management Concerns Reviewed with Anesthesia Provider, Surgeon and RN Safety Checklist Yes Elements Complete? RN Sign Out Leonora Joy RN Signature RN Sign Out 12/27/20 18:32:00 Signature Date/Time Plan of Care Outcome - [...] to extraneous objects Last Modified By: Leonora oJy RN 12/27/20 18:32:49 [facility] IntraOp Skin Prep Entry 1 Procedure Mediastinal Exploration Prescribed Yes Pre-Surgical Prep Completed Prep Area CEST, CHIN TO KNEES Intraop Prep Prep Agents Chloraprep Prep by Leonora Joy RN Hair Removal Last Modified By: Leonora Joy RN 12/27/20 18:27:10 [facility] IntraOp Surgical Procedures Entry 1 Procedure Mediastinal Exploration Additional MEEDIANSTERNOTOMY, Procedure REPAIR OF LEFT Description VENTRICULAR TEAR Primary Procedure Yes Primary Surgeon EMEKA MADERA MD-CAT Start 12/27/20 17:41:00 Stop 12/27/20 17:58:00 Anesthesia Type General Specialty Cardio Thoracic Wound Class I - Clean Last Modified By: Leonora Joy RN 12/27/20 18:39:23 [facility] IntraOp Surgical Procedures Audit 12/27/20 18:39:23 Dispute Resolution Analyst: ELVIRA Modifier: PROFITDE 1 <*> Procedure Mediastinal Exploration 1 <*> Primary Procedure Yes 1 <*> Primary Surgeon EMEKA MADERA MD-CAT 1 <*> Specialty 1 <*> Start 12/27/20 17:41:00 1 <*> Stop 12/27/20 17:58:00 1 <*> Wound Class I - Clean 1 <*> Anesthesia Type General 1 <+> Additional Procedure Description Entry 2 was deleted. Higher numbered entries shifted one position to fill the gap. <-> 2 Procedure 12/27/20 18:38:35 Dispute Resolution Analyst: ELVIRA Modifier: PROFITDE <+> 2 Procedure [facility] IntraOp Temp Regulation Devices Entry 1 Temp Regulation Temperature Warm blankets Regulation Device Temperature Full body Regulation Site Temperature ON ARRIVAL AND Regulation Comment DEPARTURE FROM THE O.R., ROOM WARMED--CALL OUT INFOR Last Modified By: Leonora Joy RN 12/27/20 18:26:05 [facility] IntraOP Time Out Entry 1 Procedure to be Mediastinal Exploration Performed Time Out Time Out Pause Time 12/27/20 16:46:00 All activity Yes suspended (unless life threatening emergency) Team Verbally Correct patient Confirms Information identity, Agreement on the procedure to be done, Correct patient position, Confirm the skin prep has dried, Confirm prosthesis/implant/devic e is present, Performed in location of procedure after prepped/draped, Performed before each procedure if multiple procedures, Reconcile problems if responses among team members differ Time Out Comment EMERGENCY, SEE ANESTHESIA RECORD FOR ADDITIONAL ANTIBIOTIC DOSING Antibiotic N/A Prophylaxis Administered Or In Progress Within the Last 60 Minutes Beta [place] N/A Administered Venous N/A Thromboembolism Prophylaxis Required Anticipated Critical Events Surgeon Critical or unexpected steps, Anticipated blood loss Anesthesia Provider Patient specific concerns Nursing Assures Sterility of instruments Essential Imaging N/A Labeled and Displayed Last Modified By: Leonora Joy RN 12/27/20 18:21:02 [facility] IntraOP Time Out Audit 12/27/20 18:21:02 Dispute Resolution Analyst: PROFITDE Modifier: PROFITDE <+> 1 Procedure to be Performed 12/27/20 18:20:50 Dispute Resolution Analyst: PROFITDE Modifier: PROFITDE 1 <-> Procedure to be Performed Coronary Artery Bypass Graft Case Comments <None> Finalized By: TERRIE LOOMIS Document Signatures Signed By: Leonora Joy RN 12/27/20 18:39 TERRIE LOOMIS 12/31/20 11:28 Unfinalized History Date/Time Username Reason for Unfinalizing Freetext Reason for Unfinalizing 12/31/20 11:24 [email or web address] Correct Billing documented in this encounter Plan of Treatment Not on file documented as of this encounter Visit Diagnoses Not on filedocumented in this encounter
--- OUTSIDE RECORDS SUMMARY | 2025-01-16 11:47 | XMS_ITS | Encounter Summary ---
Author Organization [facility] Address [address] [place] [address] Care Team Providers Care Drapery Maker Name Role Phone Unavailable Primary Care Provider Unavailabl e Encounter Details Date Type Department Care Team (Late st Contact Info) Description 01/03/2021 Transcribed Document [facility] [place] Family Medicine [facility] [place] [address] ProviderMacrina MD [address] [place], [place] [id number] Social History Tobacco Use Types Packs/Day Years Used Date Smoking Tobacco: Never Assessed Sex and Gender Information Value Date Recorded Sex Assigned at Not on file Legal Sex Male 1:13 PM CDT Gender Identity Not on file Sexual Orientation Not on file documented as of this encounter Miscellaneous Notes * Cerner Conversion Note - Macrina Cordova MD - 01/03/2021 9:10 AM CDT Patient: JOSE ADORNO Age: 80 [...] 1012. 01/02/21: POD#6 Intubated and sedated on [id number]/hr and Precedex .6mcg/kg/min. He is also on [...] which is an improvement to previous days. Health Status Allergies: Allergic Reactions (Selected) No Known Allergies Physical Examination Intake and Output 24 hour intake: Total 1112 ml 24 hour output: Urinary catheter 2310 ml, Total 2470 ml MT 110ml and Right CT 50ml / 24 hrs VS/Measurements Vital Measurements 01/03/2021 8:00 EDT Systolic Blood Pressure 132 mmHg Diastolic Blood Pressure 71 mmHg Mean Arterial Pressure (MAP)-BMDI 96 Temperature Source Bladder Temperature, Celsius 37.7 Deg C Clinical Temperature, F 99.9 Deg F Heart Rate Monitored 72 bpm Respiratory Rate 18 Breaths/Min Oxygen Saturation 97 % Oxygen Therapy Mode Mechanical ventilation FiO2 40 % General: Intubated and sedated. HENT: Normocephalic. Neck: Supple. Respiratory: Few coarse BS. Cardiovascular: Normal rate, 72 beats per minute, Regular rhythm, S1, S2, No edema. Gastrointestinal: Soft, Non-distended, Normal bowel sounds. Integumentary: Warm, Dry, [place]. Neurologic: The pt is able to move both his left and right side with right being weaker than the left. . Review / Management Results review: JAN 03 04:37 145 112 H 34 [...] 04:20 PaO2/FiO2 calculated 191 NA 01/03/2021 04:20 Coagulation Results (Current Encounter/Past 24 Hours) No [...] infarcts. Bilateral mastoiditis. Mild chronic ischemic/gliotic changes. Diagnosis Anxiety - Pre-Op Diagnosis, Medical. Cardiac [...]
--- OUTSIDE RECORDS SUMMARY | 2025-01-16 11:47 | XMS_ITS | Encounter Summary ---
Author Organization [facility] Address [address] [place] [address] Care Team Providers Care Stoker Erector Name Role Phone Unavailable Primary Care Provider Unavailabl e Encounter Details Date Type Department Care Team (Late st Contact Info) Description 01/07/2021 Transcribed Document [facility] [place] Family Medicine [facility] [place] [address] ProviderMacrina MD [address] [place], [place] [id number] Social History Tobacco Use Types Packs/Day Years [...] 1012. 01/02/21: POD#6 Intubated and sedated on [id number]/hr and Precedex .6mcg/kg/min. He is also on [...]
--- OUTSIDE RECORDS SUMMARY | 2025-01-16 11:47 | XMS_ITS | Encounter Summary ---
Author Organization [facility] Address [address] [place] [address] Care Team Providers Care Lube Man Name Role Phone Unavailable Primary Care Provider Unavailabl e Encounter Details Date Type Department Care Team (Late st Contact Info) Description 12/29/2020 Transcribed Document [facility] [place] Family Medicine [address] [place] [address] ProviderMacrina MD [address] [place], [place] [id number] Social History Tobacco Use Types Packs/Day Years [...]
--- OUTSIDE RECORDS SUMMARY | 2025-01-16 11:47 | XMS_ITS | Encounter Summary ---
Author Organization [facility] Address [address] [place] [address] Care Team Providers Care Shower Doors And Panels Fabricator Name Role Phone Unavailable Primary Care Provider Unavailabl e Encounter Details Date Type Department Care Team (Late st Contact Info) Description 01/02/2021 Transcribed Document [facility] [place] Family Medicine [facility] [place] [address] ProviderMacrina MD [address] [place], [place] [id number] Social History Tobacco Use Types Packs/Day Years Used Date Smoking Tobacco: Never Assessed Sex and Gender Information Value Date Recorded Sex Assigned at Not on file Legal Sex Male 1:13 PM CDT Gender Identity Not on file Sexual Orientation Not on file documented as of this encounter Miscellaneous Notes * Cerner Conversion Note - Macrina Cordova MD - 01/02/2021 8:41 AM CDT Patient: JOSE ADORNO Age: 80 [...] 1012. 01/02/21: POD#6 Intubated and sedated on [id number]/hr and Precedex .6mcg/kg/min. He is also on Levo .03mcg/kg/min. Health Status Allergies: Allergic Reactions (Selected) No Known Allergies Physical Examination Intake and Output 24 hour intake: Total 1320 ml 24 hour output: Total 1330 ml MT and Right CT no drainage was recorded on maintenance technician 3rd shift VS/Measurements Vital Measurements 01/02/2021 8:14 EDT Heart Rate Monitored 62 bpm Oxygen Saturation 100 % 01/02/2021 6:00 EDT Systolic Blood Pressure 99 mmHg Diastolic Blood Pressure 56 mmHg LOW Mean Arterial Pressure (MAP)-BMDI 72 Temperature, Celsius 37.9 Deg C Clinical Temperature, F 100.2 Deg F 01/02/2021 5:09 EDT Oxygen Therapy Mode Mechanical ventilation FiO2 50 % General: Intubated and sedated. HENT: Normocephalic. Neck: Supple. Respiratory: Breath sounds: No rhonchi present, No wheezes present. Cardiovascular: Normal rate, 62 beats per minute, Regular rhythm, S1, S2, No edema. Integumentary: Warm, Dry. Review / Management Results review: JAN 02 04:13 143 111 H 39 [...] 04:50 PaO2/FiO2 calculated 232 NA 01/02/2021 04:50 Coagulation Results (Current Encounter/Past 24 Hours) No [...] TF Awaiting MRI Dr. Thorne evaluated yesterday Diagnosis Anxiety - Pre-Op Diagnosis, Medical. Cardiac [...] Pre-Op Diagnosis, Medical. Electronically signed by Elmer [facility] Conversion Roofer Helper Vinyl Coating Cerner at 11/10/2022 9:31 AM CDT documented in this encounter Plan of Treatment Not on file documented as of this encounter Visit Diagnoses Not on filedocumented in this encounter
--- OUTSIDE RECORDS SUMMARY | 2025-01-16 11:47 | XMS_ITS | Encounter Summary ---
Author Organization [facility] Address [address] [place] [address] Care Team Providers Care Dry Clipper Tender Name Role Phone Unavailable Primary Care Provider Unavailabl e Encounter Details Date Type Department Care Team (Late st Contact Info) Description 01/07/2021 Transcribed Document [facility] Cardiology [address] [place] [address] Danyelle Gomez MD [address] [facility] [address] [place] [id number] Social History Tobacco Use Types Packs/Day Years [...] Basic Information PCP: Robert Batista MD Primary Post Anesthesia Nurse: Danyelle Gomez MD Subjective Extubated 01/05/21, sitting [...] (Current Encounter/Past 24 Hours) ProBNP 5653 pg/mL PA 01/07/2021 05:56 Radiology Results (Last 48 hours) [id number] -- 12/27/2020 06:39 CT Thoracentesis w/ IMAG Guid RT (01/05/2021 11:30) Result: CT-GUIDED THORACENTESISHISTORY: Pleural effusion.ATTENDING PHYSICIAN: Dr. Youssef HOME ECONOMIST CONSUMER SERVICE: LUCÍA Cantor-CTECHNIQUE: Informed consent was obtained from [...] s/p pericardiocentesis and surgical repair of LV [place]. PEA Arrest; CODE called 10 minutes to [...]
--- OUTSIDE RECORDS SUMMARY | 2025-01-16 11:47 | XMS_ITS | Encounter Summary ---
Author Organization [facility] Address [address] [place] [address] Care Team Providers Care Upstairs Maid Name Role Phone Unavailable Primary Care Provider Unavailabl e Encounter Details Date Type Department Care Team (Late st Contact Info) Description 12/30/2020 Transcribed Document [facility] [place] Family Medicine [address] [place] [address] ProviderMacrina MD [address] [place] [address] Social History Tobacco Use Types Packs/Day Years Used Date Smoking Tobacco: Never Assessed Sex and Gender Information Value Date Recorded Sex Assigned at Not on file Legal Sex Male 1:13 PM CDT Gender Identity Not on file Sexual Orientation Not on file documented as of this encounter Miscellaneous Notes * Cerner Conversion Note - Historical ProviderMD - 12/30/2020 5:00 AM CDT Chart Check - Review Order Profile Entered On: 12/30/2020 6:41 EDT Performed On: 12/30/2020 5:00 EDT by RON URENA RN Chart Check Powerplans Initiated/Discontinued as Appropriate : Yes All Active Orders Reviewed : Yes RON URENA RN - 12/30/2020 6:41 EDT documented in this encounter Plan of Treatment Not on file documented as of this encounter Visit Diagnoses Not on filedocumented in this encounter
--- OUTSIDE RECORDS SUMMARY | 2025-01-16 11:47 | XMS_ITS | Encounter Summary ---
Author Organization [facility] Address [address] [place] [address] Care Team Providers Care Sanitation Truck Cleaner Name Role Phone Unavailable Primary Care Provider Unavailabl e Encounter Details Date Type Department Care Team (Late st Contact Info) Description 12/29/2020 Transcribed Document [facility] [place] [address] [place] [address] ProviderMacrina MD [address] [place], [place] [id number] Social History Tobacco Use Types Packs/Day Years Used Date Smoking Tobacco: Never Assessed Sex and Gender Information Value Date Recorded Sex Assigned at Not on file Legal Sex Male 1:13 PM CDT Gender Identity Not on file Sexual Orientation Not on file documented as of this encounter Miscellaneous Notes * Cerner Conversion Note - Macrina ProviderMD - 12/29/2020 5:35 PM CDT Sepsis Screening Tool Entered On: 12/29/2020 17:37 EDT Performed On: 12/29/2020 17:35 EDT by JOSEPH LEWIS RN Provider Notification Provider Notified of Concerns/Results : SIRS/Sepsis Alert Provider Response : No new orders Provider Notified Name : SAAD MCHUGH APRN RAMIREZ, YAJAIRA, SHYAM - 12/29/2020 17:37 EDT Electronically signed by Elmer joel Conversion [employer] Senior Sergeant Cerner at 11/10/2022 9:12 AM CDT documented in this encounter Plan of Treatment Not on file documented as of this encounter Visit Diagnoses Not on filedocumented in this encounter
--- OUTSIDE RECORDS SUMMARY | 2025-01-16 11:47 | XMS_ITS | Encounter Summary ---
Author Organization [facility] Address [address] [place] [address] Care Team Providers Care Buggy Operator Name Role Phone Unavailable Primary Care Provider Unavailabl e Encounter Details Date Type Department Care Team (Late st Contact Info) Description 12/27/2020 Transcribed Document [facility] [place] Medicine [address] [place] [address] ProviderMacrina MD [address] [place], [place] [...] Emp RN Intervention Information: oxyCODONE Performed by Jjaa Jernigan Non Emp RN on 01/10/2021 21:41:00 [...]
--- OUTSIDE RECORDS SUMMARY | 2025-01-16 11:47 | XMS_ITS | Encounter Summary ---
Author Organization [facility] Address [address] [place] [address] Care Team Providers Care Customer Contact Sales Associate Name Role Phone Unavailable Primary Care Provider Unavailabl e Encounter Details Date Type Department Care Team (Late st Contact Info) Description 12/29/2020 Transcribed Document [address] [address] Abby Rodrigues MD [address] [place] [address] Social History Tobacco Use Types Packs/Day Years [...] Information PCP: Robert Batista MD Primary Motor Room Controller: Arthur Gomez MD Subjective mechanical vent, not [...] 24 Hours) Radiology Results (Last 48 hours) [id number] -- 12/27/2020 06:39 CR Chest 1 Vw [...] s/p pericardiocentesis and surgical repain of LV [place]. PEA Arrest; CODE called 10 minutes to [...]
--- OUTSIDE RECORDS SUMMARY | 2025-01-16 11:47 | XMS_ITS | Encounter Summary ---
Author Organization [facility] Address [address] [place] [address] Care Team Providers Care On Site Coordinator Name Role Phone Unavailable Primary Care Provider Unavailabl e Encounter Details Date Type Department Care Team (Late st Contact Info) Description 12/27/2020 Transcribed Document [facility] Family Medicine [address] [place] [address] ProviderMacrina MD [address] [place] [address] Social History Tobacco Use [...] @ 20ml/hr AAT to goal @ 45ml/hr (+[id number], 62g pro). FW per MD goal: meet est needs 3. Once propofol off, increase Osmolite 1.5 to goal at 50ml/hr + 1 [id number] daily (provides 1710kcal, 83g PRO). Goal: meet [...]
--- OUTSIDE RECORDS SUMMARY | 2025-01-16 11:47 | XMS_ITS | Encounter Summary ---
Author Organization [facility] Address [address] [place] [address] Care Team Providers Care Traveling Representative Name Role Phone Unavailable Primary Care Provider Unavailabl e Encounter Details Date Type Department Care Team (Late st Contact Info) Description 12/27/2020 Transcribed Document [facility] [place] [facility] [place] [address] ProviderMacrina MD [address] [place] [address] Social History Tobacco Use Types [...] of pericardial effusion. ANESTHESIA: General endotracheal anesthesia. CHIEF OPTOMETRY SERVICE: Sandi Gilmore physician assistant nurse manager. INDICATION FOR PROCEDURE: Mr. Francesco Adorno is [...] fluid collection anymore. At this point, a 36-Honduran right angle chest tube was placed in [...] and skin was approximated in subcuticular stitches. /[id number] Cuauhtemoc Gresham MD HRM/AQ / HRM / MODL /[id number] CC: MD Dr. Robert Gonzales MD Electronically signed by Interface, [facility] Conversion Retail And Restaurant Associate Cerner at 11/10/2022 9:09 AM CDT documented in this encounter Plan of Treatment Not on file documented as of this encounter Visit Diagnoses Not on filedocumented in this encounter
--- OUTSIDE RECORDS SUMMARY | 2025-01-16 11:47 | XMS_ITS | Encounter Summary ---
Author Organization [facility] Address [address] [place] [address] Care Team Providers Care Portfolio Consultant Name Role Phone Unavailable Primary Care Provider Unavailabl e Encounter Details Date Type Department Care Team (Late st Contact Info) Description 12/29/2020 Transcribed Document [facility] [place] [address] [place] [address] ProviderMacrina MD [address] [place] [address] Social History Tobacco Use Types [...] Care. 2006;15(4):420-427. Table 1, http://ajcc.aacnjournals.org/content/15/4/420.short, ?? 2006 [place] [employer]., Used with permission. Marley Huizar Non Emp RN - 01/06/2021 3:12 EDT Electronically signed by Elmer [facility] Conversion Emergency Room Tech Cerner at 11/14/2022 8:23 AM CDT documented in this encounter Plan of Treatment Not on file documented as of this encounter Visit Diagnoses Not on filedocumented in this encounter
--- OUTSIDE RECORDS SUMMARY | 2025-01-16 11:47 | XMS_ITS | Encounter Summary ---
Author Organization [facility] Address [address] [place] [address] Care Team Providers Care Egg Tester Name Role Phone Unavailable Primary Care Provider Unavailabl e Encounter Details Date Type Department Care Team (Late st Contact Info) Description 12/29/2020 Transcribed Document [facility] [place] [address] [place] [address] ProviderMacrina MD [address] [place] [address] Social History Tobacco Use Types [...] in the right chest. Hopefully extubate soon. Electronically signed by Olinda Payne Conversion Carton Gluing Machine Operator Cerner at 11/10/2022 9:11 AM CDT documented in this encounter Plan of Treatment Not on file documented as of this encounter Visit Diagnoses Not on filedocumented in this encounter
--- OUTSIDE RECORDS SUMMARY | 2025-01-16 11:47 | XMS_ITS | Encounter Summary ---
Author Organization [employer] [facility] Address [address] [place] [address] Care Team Providers Care Director Of Web Marketing Name Role Phone Unavailable Primary Care Provider Unavailabl e Encounter Details Date Type Department Care Team (Late st Contact Info) Description 01/07/2021 Transcribed Document [facility] [place] [address] [place] [address] ProviderMacrina MD [address] [place] [address] Social History Tobacco Use Types Packs/Day Years Used Date Smoking Tobacco: Never Assessed Sex and Gender Information Value Date Recorded Sex Assigned at Not on file Legal Sex Male 1:13 PM CDT Gender Identity Not on file Sexual Orientation Not on file documented as of this encounter Miscellaneous Notes * Cerner Conversion Note - Macrina ProviderMD - 01/07/2021 10:25 AM CDT SALES AGENT BUSINESS SERVICES Note Entered On: 01/17/2021 9:21 EDT Performed On: 01/17/2021 9:21 EDT by JUAN MANUEL BRUMFIELD, SALES AGENT BUSINESS SERVICES Pain Assessment Pain Scaled Used : FACES Pain Score Pre-Intervention : 2 JUAN MANUEL BRUMFIELD SLP - 01/17/2021 9:19 EDT Image 1 - Images currently included in the form version of this document have not been included in the text rendition version of the form. Dysphagia Exercise Technique Dysphagia Therapy/Treatment Type #1 : Other: neurosensory stim: suck-swallow with 3 hard swallows each trial = 30 swallows Dysphagia Therapy/Tx # Possible Resp #1 : 10 Dysphagia Therapy/Treatment Type #2 : Nguyen maneuver (Comment: unable [JUAN MANUEL BRUMFIELD SLP - 01/17/2021 10:52 EDT] ) Dysphagia Therapy/Treatment Type #3 : Joseluis maneuver (Comment: unable [JUAN MANUEL BRUMFIELD SLP - 01/17/2021 10:52 EDT] ) Dysphagia Therapy/Treatment Type #4 : Laryngeal elevation exercises (Comment: falsetto - limited accuracy [JUAN MANUEL BRUMFIELD SLP - 01/17/2021 10:52 EDT] ) Dysphagia Therapy/Tx # Possible Resp #4 : 5 Dysphagia Therapy/Tx # Correct Resp #4 : 2 Dysphagia Therapy/Tx # % Accuracy #4 : 40 % JUAN MANUEL BRUMFIELD SLP - 01/17/2021 10:52 EDT Motor Speech 6-10 Syllable Phrase/Sentence Repetition : Articulatory imprecision, Distorted vowels, Groping, Increased error with increased complexity 6-10 Syllable Phrase, # Poss Responses : 14 (Comment: 2 reps of 14 phrases. [JUAN MANUEL BRUMFIELD SLP - 01/17/2021 10:52 EDT] ) JUAN MANUEL BRUMFIELD SLP - 01/17/2021 10:52 EDT Verbal Expression Divergent Naming #1 Task : [place] Divergent Naming #1 # Possible : 10 Divergent Naming #1 # Correct : 10 Divergent Naming #1 Time : 60 Second(s) Divergent Naming #2 Task : [place] Divergent Naming #2 # Possible : 15 Divergent Naming #2 # Correct : 12 Divergent Naming #2 Time : 60 Second(s) Divergent Naming #3 Task : [place] Divergent Naming #3 # Possible : 15 Divergent Naming #3 # Correct : 14 Divergent Naming #3 Time : 60 Second(s) Divergent Naming #4 Task : Abstract Divergent Naming #4 # Possible : 10 Divergent Naming #4 # Correct : 9 Divergent Naming #5 Task : Abstract Divergent Naming #5 # Possible : 10 Divergent Naming #5 # Correct : 8 Divergent Naming Total Possible : 60 Divergent Naming Total Correct : 53 Divergent Naming Accuracy % : 88.3 % JUAN MANUEL BRUMFIELD SLP - 01/17/2021 10:52 EDT Problem Solving Simple Solving: # Possible Responses : 5 Simple Solving: # Correct Responses : 5 Simple Problem Solving: Accuracy Percent : 100 % Cmplx Prob Solving: # Possible Responses : 5 Cmplx Prob Solving: # Correct Responses : 3 Cmplx Prob Solving: Accuracy Pct : 60 % Math Calculation: # Possible Responses : 5 Math Calculation: # Correct Responses : 5 Mathematical Calculation: Accuracy Pct : 100 % JUAN MANUEL BRUMFIELD [facility] [place] 01/17/2021 10:52 EDT Swallow Plan/Goals Swallow LTG Grid SALES AGENT BUSINESS SERVICES Forestry Aid Technician Goal #1 SALES AGENT BUSINESS SERVICES Forestry Aid Technician Goal #2 Swallow LTG : Establish safe oral diet without aspiration Improve swallowing function for oral intake Status : Progressing, continue Progressing, continue JUAN MANUEL BRUMFIELD, SALES AGENT BUSINESS SERVICES - 01/17/2021 10:52 EDT JUAN MANUEL BRUMFIELD, SALES AGENT BUSINESS SERVICES - 01/17/2021 10:52 EDT Swallow Goals Grid Goal #1 Goal [...] EDT 01/23/2021 EDT Status : Goal met Progressing, continue Goal met Progressing, continue Date Met : 01/10/2021 EDT 01/10/2021 EDT JUAN MANUEL BRUMFIELD, SALES AGENT BUSINESS SERVICES - 01/17/2021 10:52 EDT JUAN MANUEL BRUMFIELD, SALES AGENT BUSINESS SERVICES - 01/17/2021 10:52 EDT JUAN MANUEL BRUMFIELD, SALES AGENT BUSINESS SERVICES - 01/17/2021 10:52 EDT JUAN MANUEL BRUMFIELD, [facility] - 01/17/2021 10:52 EDT Goal #5 Goal #6 Goal #7 Goal #8 Swallow STG : Improve labial closure Improve swallow timing Improve hyolaryngeal excursion Other: instrumental Related To : Return to oral intake Aspiration prevention, Penetration prevention Aspiration prevention, Penetration prevention Measurement by repeat instrumental exam, Return to oral intake Date to Meet : 01/10/2021 EDT 01/23/2021 EDT 01/23/2021 EDT 01/23/2021 EDT Status : Goal met Progressing, continue Progressing, continue Progressing, continue Date Met : 01/10/2021 EDT JUAN MANUEL BRUMFIELD SLP - 01/17/2021 10:52 EDT JUAN MANUEL BRUMFIELD, SALES AGENT BUSINESS SERVICES - 01/17/2021 10:52 EDT JUAN MANUEL BRUMFIELD, SALES AGENT BUSINESS SERVICES - 01/17/2021 10:52 EDT JUAN MANUEL BRUMFIELD, SALES AGENT BUSINESS SERVICES - 01/17/2021 10:52 EDT Goal #9 Swallow STG : Other: Pt goal: I want to go home Related To : Date to Meet : Status : Date Met : JUAN MANUEL BRUMFIELD SLP - 01/17/2021 10:52 EDT LTG Lang/Comm/Cog LTG SALES AGENT BUSINESS SERVICES Forestry Aid Technician Goal 1 Forestry Aid Technician Goal 2 Goals : Improved memory in order to complete functional task(s) upon discharge Improved problem solving in order to complete functional task(s) upon discharge Status : Progressing, continue Progressing, continue JUAN MANUEL BRUMFIELD SLP - 01/17/2021 10:52 EDT JUAN MANUEL BRUMFIELD SLP - 01/17/2021 10:52 EDT STG Lang_Comm_Cog SALES AGENT BUSINESS SERVICES Education STG Grid Goal #1 Activity : Other: Pt's goal is to get out of the hospital JUAN MANUEL BRUMFIELD SLP - 01/17/2021 10:52 EDT Motor Speech STG Grid Goal #1 Activity : Use compensatory strategies to improve speech intelligibility Status : Progressing, continue JUAN MANUEL BRUMFIELD SLP - 01/17/2021 10:52 EDT Memory STG Grid Goal #1 Goal #2 Activity : Improve temporal orientation (recent memory) Improve short term functional delayed Status : Progressing, continue Progressing, continue JUAN MANUEL BRUMFIELD SLP - 01/17/2021 10:52 EDT JUAN MANUEL BRUMFIELD SLP - 01/17/2021 10:52 EDT Problem Solving STG Grid Goal #1 Goal #2 Goal #3 Activity : Improve money management Generate a list of complex/abstract items Improve time management Status : Progressing, continue Progressing, continue Progressing, continue JUAN MANUEL BRUMFIELD SLP - 01/17/2021 10:52 EDT JUAN MANUEL BRUMFIELD SLP - 01/17/2021 10:52 EDT JUAN MANUEL BRUMFIELD SLP - 01/17/2021 10:52 EDT Subjective/Assessment/Plan SALES AGENT BUSINESS SERVICES Patient Concern : Pt awake in bed SALES AGENT BUSINESS SERVICES Therapy/Treatment Asmt Cmnt : Patient seen for dysphagia, speech, and cog tx. Pt is very plesant today and attempts to joke. Pt is NPO for PEG placement with surgery this afternoon. Dysphagia tx completed with neurosensory stim. Suck-swallow with 3 effortful swallows each = 30 swallows. Unable to complete Joseluis or Nguyen, limited elevation with falsetto attempts. Speech remains dysarthric with wet vocal quality. He has improved compliance with use of compensatory strategies in drill tx though accuracy declines in conversation. Improved cognitive performance overall today SALES AGENT BUSINESS SERVICES Plan : PEG placement later today. ST will see 01/18 JUAN MANUEL BRUMFIELD SLP - 01/17/2021 10:52 EDT Education Individuals Taught : Patient JUAN MANUEL BRUMFIELD SLP - 01/17/2021 10:52 EDT SALES AGENT BUSINESS SERVICES Education Assessment Grid 1 Aspiration : Needs further teaching Dysphagia : Needs further teaching JUAN MANUEL BRUMFIELD SLP - 01/17/2021 10:[address] [facility] SALES AGENT BUSINESS SERVICES Charges Treatment-Swallowing : 1 ST Development of Cognition Initial 15 minutes : 1 (Comment: 15 mins [JUAN MANUEL BRUMFIELD SLP - 01/17/2021 10:52 EDT] ) ST Development of Cognition Additional 15 minutes : 1 (Comment: 15 mins [JUAN MANUEL BRUMFIELD SLP - 01/17/2021 10:52 EDT] ) JUAN MANUEL BRUMFIELD SLP - 01/17/2021 10:52 EDT Electronically signed by Olinda Payne Conversion Insurance Application Investigator Cerner at 11/14/2022 8:23 AM CDT documented in this encounter Plan of Treatment Not on file documented as of this encounter Visit Diagnoses Not on filedocumented in this encounter
--- OUTSIDE RECORDS SUMMARY | 2025-01-16 11:47 | XMS_ITS | Encounter Summary ---
Author Organization [facility] Address [address] [place] [address] Care Team Providers Care Director Child Development Center Name Role Phone Unavailable Primary Care Provider Unavailabl e Encounter Details Date Type Department Care Team (Late st Contact Info) Description 01/07/2021 Transcribed Document [facility] [place] [address] [place] [address] ProviderMacrina MD [address] [place], [place] [id number] Social History Tobacco Use Types Packs/Day Years [...] Shayy Bowie RN - 01/07/2021 18:06 EDT Electronically signed by Elmer joel Conversion Commercial Loan Collection Officer Cerner at 11/10/2022 9:17 AM CDT documented in this encounter Plan of Treatment Not on file documented as of this encounter Visit Diagnoses Not on filedocumented in this encounter
--- OUTSIDE RECORDS SUMMARY | 2025-01-16 11:47 | XMS_ITS | Encounter Summary ---
Author Organization [facility] Address [address] [place] [address] Care Team Providers Care Freezing Room Worker Name Role Phone Unavailable Primary Care Provider Unavailabl e Encounter Details Date Type Department Care Team (Late st Contact Info) Description 01/02/2021 Transcribed Document [address] [id number] Abby Rodrigues MD [address] [place] [address] Social History Tobacco Use Types Packs/Day Years [...] Basic Information PCP: Robert Batista MD Primary Senior Security Analyst: Arthur Gomez MD Subjective Patient seen and [...] 24 Hours) Radiology Results (Last 48 hours) [id number] -- 12/27/2020 06:39 CR Abdomen 1 Vw [...] s/p pericardiocentesis and surgical repair of LV Admire. PEA Arrest; CODE called 10 minutes to [...]
--- OUTSIDE RECORDS SUMMARY | 2025-01-16 11:47 | XMS_ITS | Encounter Summary ---
Author Organization [facility] [employer] [facility] Address [address] [place] [address] Care Team Providers Care Pugger Helper Name Role Phone Unavailable Primary Care Provider Unavailabl e Encounter Details Date Type Department Care Team (Late st Contact Info) Description 01/02/2021 Transcribed Document [facility] [place] [address] [place] [address] ProviderMacrina MD [address] [id number] Social History Tobacco Use Types Packs/Day Years [...] On: 01/02/2021 14:52 EDT by SOPHY RM Rn-Commercial Escrow AssistantSenior Trial Attorney Progress Note Discharge Arrangements : Patient Post-Acute [...] : Clinical Condition of Patient SOPHY RM Rn-Commercial Escrow Assistant - 01/02/2021 14:52 EDT Narrative Progress Note [...] need therapy evals when appropriate. SOPHY RM Rn-Commercial Escrow Assistant - 01/01/21 14:47:57 HD#4; ELOS 3; LRR; POD#4 - Electiv TAVR; L Ventrical Tear; intubated fi02 50; Cardene gtt; Corpak to be placed and TF initiated; SBT today; following commands; Head MRI ordered; possible extubation post MRI; no movement noted on R side; will need PT/OT evaluations when extubated; DCP pending progress - likely rehab. SOPHY RM Rn-Commercial Escrow Assistant - 12/31/20 14:58:43 DCP TBD - pending progress; OP Cardiac Rehab referral placed thru [facility]. SOPHY RM Rn-Commercial Escrow Assistant - 12/28/20 12:42:03 SOPHY RM Rn-Commercial Escrow Assistant - 01/02/2021 14:52 EDT documented in this encounter Plan of Treatment Not on file documented as of this encounter Visit Diagnoses Not on filedocumented in this encounter
--- OUTSIDE RECORDS SUMMARY | 2025-01-16 11:47 | XMS_ITS | Encounter Summary ---
Author Organization [facility] Address [address] [place] [address] Care Team Providers Care Plater Barrel Name Role Phone Unavailable Primary Care Provider Unavailabl e Encounter Details Date Type Department Care Team (Late st Contact Info) Description 01/02/2021 Transcribed Document [facility] Pulm & Critical Care Medicine [address] [place] [address] [address] [place] [address] Erick Navarro MD [address] [facility] [address] [place] [address] Social History Tobacco Use Types [...] Medical Aortic valve stenosis / SNOMED CT 040341072 / Confirmed At risk for sleep apnea / IMO [id number] / Confirmed Colorectal surgery / SNOMED CT 8814041214 / Confirmed HTN - Hypertension / SNOMED CT 0270439300 / Confirmed, Active Problems (13) Aortic stenosis, [...] 71 (CESAR 08) 64 (CESAR 06) 55 (CEASR 05) T Bili H 1.7 (CESAR 09) [...] 01/02/2021 04:50 Radiology Results (Last 48 hours) [id number] -- 12/27/2020 06:39 CR Chest 1 Vw [...] effusions.Images reviewed, interpreted, and dictated by Dr. Chirstiano Gurrola.Transcribed by Mynor [place](R).I have personally viewed, [...] team, including critical care team, CCRN, RT., News Cameraman , case management and clinical pharmacist. I [...]
--- OUTSIDE RECORDS SUMMARY | 2025-01-16 11:47 | XMS_ITS | Encounter Summary ---
Author Organization [facility] Address [address] [place] [address] Care Team Providers Care Digital Sales Planner Name Role Phone Unavailable Primary Care Provider Unavailabl e Encounter Details Date Type Department Care Team (Late st Contact Info) Description 12/29/2020 Transcribed Document [facility] [place] [address] [place] [address] ProviderMacrina MD [address] [place], [place] [address] Social History Tobacco Use Types Packs/Day Years Used Date Smoking Tobacco: Never Assessed Sex and Gender Information Value Date Recorded Sex Assigned at Not on file Legal Sex Male 1:13 PM CDT Gender Identity Not on file Sexual Orientation Not on file documented as of this encounter Miscellaneous Notes * Cerner Conversion Note - Historical ProviderMD - 12/29/2020 10:40 AM CDT Attempt to Treat, PT Entered On: 12/29/2020 13:27 EDT Performed On: 12/29/2020 10:40 EDT by CAPO ROBISON PT Attempt to Treat Unable to Treat Due To : Patient on hold Inability to Treat Comment : Pt. on hold per RN (Malinda) secondary to still trying to wean off vent in addition to other testing needed today. Reattempt tomorrow CAPO ROBISON, PT - 12/29/2020 13:26 EDT documented in this encounter Plan of Treatment Not on file documented as of this encounter Visit Diagnoses Not on filedocumented in this encounter
--- OUTSIDE RECORDS SUMMARY | 2025-01-16 11:47 | XMS_ITS | Encounter Summary ---
Author Organization [facility] [employer] [facility] Address [address] [place] [address] Care Team Providers Care Vice President Of Talent Acquisition Name Role Phone Unavailable Primary Care Provider Unavailabl e Encounter Details Date Type Department Care Team (Late st Contact Info) Description 01/02/2021 Transcribed Document [facility] [place] [address] [place] [address] ProviderMacrina MD [address] [place], [place] [address] Social History Tobacco Use Types Packs/Day Years Used Date Smoking Tobacco: Never Assessed Sex and Gender Information Value Date Recorded Sex Assigned at Not on file Legal Sex Male 1:13 PM CDT Gender Identity Not on file Sexual Orientation Not on file documented as of this encounter Miscellaneous Notes * Cerner Conversion Note - Historical ProviderMD - 01/02/2021 10:35 AM CDT Therapy Screen, PT Entered On: 01/02/2021 10:35 EDT Performed On: 01/02/2021 10:35 EDT by ARIANE PIERCE, PT Therapy Screen, PT Medical Chart Reviewed : Yes Person Providing Information : Nurse Screen Completed : Yes Additional Therapy Screen Comment : Discussed pt with Christiano HOWE. Pt was reintubated after order and will need a reorder. They will get reorder when appropriate. ARIANE PIERCE, PT - 01/02/2021 10:35 EDT documented in this encounter Plan of Treatment Not on file documented as of this encounter Visit Diagnoses Not on filedocumented in this encounter
--- OUTSIDE RECORDS SUMMARY | 2025-01-16 11:47 | XMS_ITS | Encounter Summary ---
Author Organization [facility] Address [address] [place] [address] Care Team Providers Care Pharmacy Laboratory Technician Name Role Phone Unavailable Primary Care Provider Unavailabl e Encounter Details Date Type Department Care Team (Late st Contact Info) Description 01/02/2021 Transcribed Document [facility] [place] [address] [place] [address] ProviderMacrina MD [address] [place] [address] Social History Tobacco Use Types Packs/Day Years Used Date Smoking Tobacco: Never Assessed Sex and Gender Information Value Date Recorded Sex Assigned at Not on file Legal Sex Male 1:13 PM CDT Gender Identity Not on file Sexual Orientation Not on file documented as of this encounter Miscellaneous Notes * Cerner Conversion Note - Historical ProviderMD - 01/02/2021 10:[address] [facility] PT Charges Entered On: 01/02/2021 10:36 EDT Performed On: 01/02/2021 10:35 EDT by ARIANE PIERCE PT [facility] PT Charges Physical Therapy Screen : 1 ARIANE PIERCE PT - 01/02/2021 10:35 EDT documented in this encounter Plan of Treatment Not on file documented as of this encounter Visit Diagnoses Not on filedocumented in this encounter
--- OUTSIDE RECORDS SUMMARY | 2025-01-16 11:47 | XMS_ITS | Encounter Summary ---
Author Organization [facility] Address [address] [place] [address] Care Team Providers Care Video Game Technician Name Role Phone Unavailable Primary Care Provider Unavailabl e Encounter Details Date Type Department Care Team (Late st Contact Info) Description 01/07/2021 Transcribed Document [facility] [place] [facility] [address] ProviderMacrina MD [address] [place], [place] [phone] Social History Tobacco Use Types Packs/Day Years [...] 0.5 MCG/KG/. Awake and following commands, positive ramp service employee in bilateral hands. MRI brain yesterday revealed [...] 180s. 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 education coordinator and moves extremities bilaterally but weaker on [...] Problems Aortic valve stenosis / SNOMED CT 239488813 / Confirmed Arthritis of right knee / SNOMED CT 2883852773 / Confirmed At risk for sleep apnea / IMO [id number] / Confirmed Chronic anxiety / SNOMED CT 050932491 / Confirmed Back pain, chronic / SNOMED CT 343538778 / Confirmed Colorectal surgery / SNOMED CT 5219523157 / Confirmed Disorder of prostate / SNOMED CT 38376112 / Confirmed GERD - Gastro-esophageal reflux disease / SNOMED CT 2599405572 / Confirmed H/O peripheral neuropathy / SNOMED CT 266505371 / Confirmed feet tingle all the time HTN - Hypertension / SNOMED CT 2576957784 / Confirmed Hyperlipidemia / SNOMED CT 58383812 / Confirmed Hypertension / SNOMED CT 90299262 / Confirmed Aortic stenosis, severe / SNOMED CT 7528271445 / Confirmed Resolved: Cancer of colon / SNOMED CT 1508045190, Active Problems (13) Aortic stenosis, severe Aortic [...] (CESAR 12) 145 (CESAR 11) K 4.0 (CESAR 14) 3.8 (CESAR 13) 4.2 [...] 24 Hours) Radiology Results (Last 48 hours) [id number] -- 12/27/2020 06:39 CR Chest 1 Vw [...] ZAVALA. Electronically signed by Olinda Payne Conversion Accounting Advisory Services Manager Cerner at 11/10/2022 9:30 AM CDT documented in this encounter Plan of Treatment Not on file documented as of this encounter Visit Diagnoses Not on filedocumented in this encounter
--- OUTSIDE RECORDS SUMMARY | 2025-01-16 11:47 | XMS_ITS | Encounter Summary ---
Author Organization [facility] Address [address] [place] [address] Care Team Providers Care Irradiated Fuel Handler Name Role Phone Unavailable Primary Care Provider Unavailabl e Encounter Details Date Type Department Care Team (Late st Contact Info) Description 12/27/2020 Transcribed Document [facility] [place] [facility] [place] [address] ProviderMacrina MD [address] [place], [place] [id number] Social History Tobacco Use Types Packs/Day Years Used Date Smoking Tobacco: Never Assessed Sex and Gender Information Value Date Recorded Sex Assigned at Not on file Legal Sex Male 1:13 PM CDT Gender Identity Not on file Sexual Orientation Not on file documented as of this encounter Miscellaneous Notes * Cerner Conversion Note - Macrina Cordova MD - 12/27/2020 7:27 PM CDT Patient: JOSE ADORNO Age: 80 years Sex: Male : 1940 Associated Diagnoses: None Author: PAT BEAVERS MD Mr. Adorno is an 80-year-old male with past medical history significant for hypertension, and severe aortic stenosis who presented to our facility on 12/27 for scheduled TAVR. During TAVR procedure, it was suspected that the patient had a tear in the apex of the left ventricle. A pericardiocentesis was done and approximately 660ml of fluid was removed. Additionally, per paving and surfacing labourer staff underwent CPR staff he underwent CPR for 1 to 2 minutes. The patient was transferred ICU for close monitoring due to persistent hypotension. Approximately at 1049 AM on 12/27, hypotension worsen and became sustained bradycardic and subsequently sustained a PEA arrest. WICHO SIFUENTES was called. I responded to the WICHO SIFUENTES call, we started chest compressions, the patient received epinephrine, bicarb a total of 4 ampoule (50 mEq each), and calcium gluconate (2 g). He was on phenylephrine and vasopressin at that time. ROSC was achieved at 11:00AM. The patient was intubated during t the cardiac arrest/CODE BLUE. He patient had pericardial drain which was clotted initially, bedside transthoracic echo showed pericardial effusion, the pericardial drain then started draining after syringe suction applied. Approximately 400 cc of blood was drained from the pericardial drain. Patient received multiple blood products including multiple blood products including 4 units of PRBC, 2 cryoprecipitate, 2 platelets, and 2fresh frozen plasma in addition of a total of 3 L of crystalloid. He then was then taken back to the OR and underwent pericardial window but bleeding was stopped no further bleeding noted Patient back from the OR, and A. fib with RVR, he was in vasopressin and Patricio-Synephrine, remained receiving volume resuscitation. . Patient underwent electrocardioversion with 200 J of synchronized for A. fib with RVR and worsening hypotension. He converted to normal sinus rhythm an and was able to wean d blood pressure significantly improved off vasopressors. Later, blood pressure suddenly dropped to 60/30mmHg, aggressive volume resuscitation restarted with multiple blood products, albumin, and crystalloid. Blood pressure was as low as 60s/30smmHg blood pressure remained persistently low despite aggressive blood product transfusion and volume resuscitation and required additional 2 platelet, 2 FFP, 2 cryoprecipitate and 4 packed RBCs.. The large bore pericardial tube draining significant amount of blood (3400cc). Cardiology and cardiothoracic surgery were notified. Patient currently on vasopressin, Patricio-Synephrine, and Levophed patient was taken back to the OR. Patient back from the OR, had repair of the left ventricle. Remains intubated mechanically ventilated with improved hemodynamics. Laboratory testing and imaging were reviewed. Coagulopathy noted due to massive blood loss. Increased PT, INR, and low fibrinogen. FFP and cryoprecipitate have been administered. Chest x-ray showed rib fracture on the left side. No pneumothorax. Increased vascular markings likely due to volume overload. Patient at risk for TRALI , shock liver and acute renal failure. Vent bundle; ABG was done and reviewed multiple times Mechanical ventilation adjusted. Monitor peak, plateau pressure and exhaled tidal volume. Monitor hemodynamic closely and keep MAP above 70 mmHg Monitor H&H, PT, INR, Fibrinogen Monitor lactic acid, kidney function and liver function test and electrolytes No DVT prophylaxis I have personally evaluated the patient; history and review of systems, physical examination, laboratory studies and radiology data. I have actively directed the medical care, formulated diagnosis and plan and discussed it with our team. Prognosis: guarded. Very critically unstable, hemorrhagic shock, pericardial tamponade status post window, left ventricular rupture, acute hypoxic respiratory failure, mechanical ventilation. Very high risk mortality morbidity Full code Discussed with his in detail Discussed with anesthesia, cardiology (Wayne) and cardiothoracic surgery (Marga) attendings Very critically unstable, complex case, requires frequent assessments and high level of decision making. Critical care time spent on this patient is 139 minutes documented in this encounter Plan of Treatment Not on file documented as of this encounter Visit Diagnoses Not on filedocumented in this encounter
--- OUTSIDE RECORDS SUMMARY | 2025-01-16 11:47 | XMS_ITS | Encounter Summary ---
Author Organization [facility] Address [address] [place] [address] Care Team Providers Care Cytopathologist Name Role Phone Unavailable Primary Care Provider Unavailabl e Encounter Details Date Type Department Care Team (Late st Contact Info) Description 12/27/2020 Transcribed Document [facility] [place] [facility] [place] [address] ProviderMacrina MD [address] [place] [address] Social History Tobacco Use Types Packs/Day Years Used Date Smoking Tobacco: Never Assessed Sex and Gender Information Value Date Recorded Sex Assigned at Not on file Legal Sex Male 1:13 PM CDT Gender Identity Not on file Sexual Orientation Not on file documented as of this encounter Miscellaneous Notes * Cerner Conversion Note - Macrina Cordova MD - 12/27/2020 2:44 PM CDT Patient: JOSE ADORNO Age: 80 years Sex: Male : 1940 Associated Diagnoses: None Author: ANTHONY JACOBO PA Procedure Central line insertion procedure Confirmed: patient, procedure. Performed by: self. Present and supervised procedure: PAT BEAVERS MD. Informed consent: signed by family. Indication: medication delivery, need for venous access, resuscitation. Preparation: sterile preparation of site (in usual fashion, with 2% chlorhexidine gluconate, draped to expose affected area, with full drapes, gown, gloves and mask), vessel was identified ultrasound guided, position (head turned to left, supine). fentanyl and propofol . Technique: Modified Seldinger technique, location (right, internal jugular vein, 1 attempts), central approach used, catheter type 3 lumen catheter, location confirmed via flashback, catheter flushed with saline, total catheter length 20 cm, dressing applied (catheter secured, semi-permeable transparent dressing applied), monitoring during procedure (blood pressure, cardiac, continuous pulse oximetry). Findings: chest x-ray pending . documented in this encounter Plan of Treatment Not on file documented as of this encounter Visit Diagnoses Not on filedocumented in this encounter
--- OUTSIDE RECORDS SUMMARY | 2025-01-16 11:47 | XMS_ITS | Encounter Summary ---
Author Organization [facility] Address [address] [place] [address] Care Team Providers Care Twister Operator Name Role Phone Unavailable Primary Care Provider Unavailabl e Encounter Details Date Type Department Care Team (Late st Contact Info) Description 01/02/2021 Transcribed Document [facility] [place] [address] [place] [address] ProviderMacrina MD [address] [place], [place] [id number] Social History Tobacco Use Types Packs/Day Years Used Date Smoking Tobacco: Never Assessed Sex and Gender Information Value Date Recorded Sex Assigned at Not on file Legal Sex Male 1:13 PM CDT Gender Identity Not on file Sexual Orientation Not on file documented as of this encounter Miscellaneous Notes * Cerner Conversion Note - Historical ProviderMD - 01/02/2021 5:00 PM CDT Chart Check - Review Order Profile Entered On: 01/02/2021 16:19 EDT Performed On: 01/02/2021 17:00 EDT by Christiano Lopez RN Chart Check Powerplans Initiated/Discontinued as Appropriate : Yes All Active Orders Reviewed : Yes Christiano Lopez RN - 01/02/2021 16:19 EDT documented in this encounter Plan of Treatment Not on file documented as of this encounter Visit Diagnoses Not on filedocumented in this encounter
--- OUTSIDE RECORDS SUMMARY | 2025-01-16 11:48 | XMS_ITS | Encounter Summary ---
Author Organization [facility] Address [address] [place] [address] Care Team Providers Care Transmissions Systems Operator Name Role Phone Unavailable Primary Care Provider Unavailabl e Encounter Details Date Type Department Care Team (Late st Contact Info) Description 01/07/2021 Transcribed Document [facility] [place] [address] [place] [address] ProviderMacrina MD [address] [place] [address] Social History Tobacco Use Types [...] continue to follow intermittently; call with questions. documented in this encounter Plan of Treatment Not on file documented as of this encounter Visit Diagnoses Not on filedocumented in this encounter
--- OUTSIDE RECORDS SUMMARY | 2025-01-16 11:48 | XMS_ITS | Encounter Summary ---
Author Organization [facility] Address [address] [place] [address] Care Team Providers Care Director Industrial Museum Name Role Phone Unavailable Primary Care Provider Unavailabl e Encounter Details Date Type Department Care Team (Late st Contact Info) Description 01/02/2021 Transcribed Document [facility] [place] [address] [place] [address] ProviderMacrina MD [address] [place], [place] [address] Social History Tobacco Use Types Packs/Day Years [...] EDT by Lauren Newberry OCCUPATIONAL THERAPIST NON-EXEMPT [place] OT Charges Screen For Binding Machine Operator : 1 Lauren Newberry OCCUPATIONAL THERAPIST NON-EXEMPT - 01/02/2021 12:48 EDT documented in this encounter Plan of Treatment Not on file documented as of this encounter Visit Diagnoses Not on filedocumented in this encounter
--- OUTSIDE RECORDS SUMMARY | 2025-01-16 11:48 | XMS_ITS | Encounter Summary ---
Author Organization [facility] Address [address] [place] [address] Care Team Providers Care Prom Burn Off Operator Name Role Phone Unavailable Primary Care Provider Unavailabl e Encounter Details Date Type Department Care Team (Late st Contact Info) Description 11/15/2019 Transcribed Document [facility] [place] [address] [place] [address] ProviderMacrina MD [address] [place] [address] Social History Tobacco Use Types [...] and water are not available, use hand resource room special education teacher. ? Change your dressing as told by [...] contrast dye from your body. ??? Take gcvl-lgo-bxxlsyz and prescription medicines only as told by [...] 01/29/2006 Document Revised: 06/17/2017 Document Reviewed: 06/17/2017 [employer] Interactive Patient Education ? 2019 [employer]. Valvuloplasty, Care After This sheet gives [...] and water are not available, use hand resource room special education teacher. ? Change your dressing as told by [...] health care provider. General instructions ??? Take ywpf-axi-yrwepaj and prescription medicines only as told by your health care provider. ??? Do not take baths, swim, or use a hot tub until your health care provider approves. ??? To prevent or treat constipation while you are taking prescription pain medicine, your health care provider may recommend that you: ? Drink enough fluid to keep your urine clear or pale yellow. ? Take kdms-zxy-nkuxljm or prescription medicines. ? Eat foods that [...] 11/27/2015 Document Revised: 06/09/2017 Document Reviewed: 06/09/2017 [employer] Interactive Patient Education ? 2019 [employer]. Moderate Conscious Sedation, Adult, Care After These [...] you are awake and alert. ??? Take gybe-sal-tucnutr and prescription medicines only as told by [...] 05/03/2014 Document Revised: 12/15/2016 Document Reviewed: 11/01/2016 [employer] Interactive Patient Education ? 2019 [employer]. Groin Site Care Refer to this sheet [...] Document Reviewed: 08/15/2011 ExitCare? Patient Information ?2013 [employer]. documented in this encounter Plan of Treatment Not on file documented as of this encounter Visit Diagnoses Not on filedocumented in this encounter
--- OUTSIDE RECORDS SUMMARY | 2025-01-16 11:48 | XMS_ITS | Encounter Summary ---
Author Organization [facility] Address [address] [place] [address] Care Team Providers Care Advertising Job Titles Name Role Phone Unavailable Primary Care Provider Unavailabl e Encounter Details Date Type Department Care Team (Late st Contact Info) Description 01/18/2021 Transcribed Document [facility] [place] [address] [place] [address] ProviderMacrina MD [address] [place] [address] Social History Tobacco Use Types [...] Cordova MD - 01/18/2021 4:09 PM CDT [facility] [place] [address] JOSE ADORNO :1940 Visit Time:12/27/2020 Your [...] do next Instructions From Your Care Team [facility] Number for Report: [phone] Fax for Discharge Summary: [phone] Transportation: [facility] Van at 1615 Follow-Up Appointments Follow Up with DANYELLE WALTERS When 02/08/2021 11:00 AM EDT Comments ECHO same day, prior to follow up appointment with Dr. Crawford. Arrive at [facility] at 9am. Where: [address] [place] [address]- Business (1) Follow Up with EMEKA MADERA When 02/05/2021 10:15 AM EDT Comments Appointment has been made Where: [address] [place] [id number]- Business (1) Follow Up with FITO MEDRANO When Within 6 weeks Comments Hospital f/u for stroke; Call for follow up appointment when discharged from Rehab Where: [address] [employer] [address] [place] [address]- Business (1) Follow Up with PERICO AWAN MD When Within 5 to 7 days Comments Call for follow up appointment when discharged from Rehab Where: [address] [place] [address]- Follow Up with [facility] When Within 6 weeks [...] including vitamins, herbs, eye drops, creams, and ytvd-utl-pdsfbwh medicines. ??? Any problems you or family [...] Assistance with quitting is available by contacting 8-875-YZYVNOW. This is a free resource providing counseling, support, and referral. Or you may contact your personal physician. Edith Endave Suicide Prevention Lifeline: The National Suicide Prevention [...] range between ( 0.0 and 7.0 ) Kings #: 1.00 K/uL -- Normal range between ( 0.16 and 1.00 ) Eos #: 0.52 x10(3)/uL -- Normal range between ( 0.00 and 0.80 ) Kings %: 8.5 % -- Normal range between [...] ) Urine Bilirubin Dipstick: Negative Urine Specific Munday: 1.017 -- Normal range between ( 1.005 [...] was given the opportunity to ask questions. Patient/Supervisor Pile Driving Name: Patient/Supervisor Pile Driving Signature: Relationship to Patient: Clinician/Hospital Supervisor Pile Driving Signature: Date: documented in this encounter Plan of Treatment Not on file documented as of this encounter Visit Diagnoses Not on filedocumented in this encounter
--- OUTSIDE RECORDS SUMMARY | 2025-01-16 11:48 | XMS_ITS | Encounter Summary ---
Author Organization [facility] Address [address] [place] [address] Care Team Providers Care Wash Test Checker Name Role Phone Unavailable Primary Care Provider Unavailabl e Encounter Details Date Type Department Care Team (Late st Contact Info) Description 01/18/2021 Transcribed Document [facility] [place] [address] [place] [address] ProviderMacrina MD [address] [place] [address] Social History Tobacco Use Types Packs/Day Years [...] On: 01/18/2021 10:52 EDT by Jordan Michelle SERVICE DEVELOPER LEAD Meds to Bed Enrollment Patient Enrollment Decision: : No/do not enroll in meds to bed program Reason for Declining Meds to Bed Program: : Discharge to facility Jordan Michelle SERVICE DEVELOPER LEAD - 01/18/2021 10:52 EDT documented in this encounter Plan of Treatment Not on file documented as of this encounter Visit Diagnoses Not on filedocumented in this encounter
--- OUTSIDE RECORDS SUMMARY | 2025-01-16 11:48 | XMS_ITS | Encounter Summary ---
Author Organization [facility] Address [address] [place] [address] Care Team Providers Care Forest Fire Warden Name Role Phone Unavailable Primary Care Provider Unavailabl e Encounter Details Date Type Department Care Team (Late st Contact Info) Description 12/29/2020 Transcribed Document [facility] Pulm & Critical Care Medicine [address] [place] [address] [address] [place] [address] Kapil River MD [address] [facility] [address] [place] [address] Social History Tobacco Use Types [...] 12/29/2020 04:43 Radiology Results (Last 48 hours) [id number] -- 12/27/2020 06:39 CR Chest 1 Vw [...] critical care time excluding procedures. Discussed with CIRCULAR SHEAR OPERATOR: RN and patient's at bedside. documented in this encounter Plan of Treatment Not on file documented as of this encounter Visit Diagnoses Not on filedocumented in this encounter
--- OUTSIDE RECORDS SUMMARY | 2025-01-16 11:48 | XMS_ITS | Encounter Summary ---
Author Organization [facility] Address [address] [place] [address] Care Team Providers Care Chief Substation Operator Name Role Phone Unavailable Primary Care Provider Unavailabl e Encounter Details Date Type Department Care Team (Late st Contact Info) Description 11/15/[address] [facility] [place] [address] [place] [address] ProviderMacrina MD [address] [place] [address] Social History Tobacco Use Types [...] Cordova MD - 11/15/2019 1:54 PM CDT [facility] [address] [place] [address] HUONG JOSE L :1940 Visit Time:11/15/2019 Your Visit [...] visit. Please call Marissa Mckay to arrange [phone]. Where: [address] [facility] [address] [place] [phone] [employer] (1) Medications What How Much When Instructions [...] and water are not available, use hand exterminator termite. ? Change your dressing as told by [...] contrast dye from your body. ??? Take znuc-jkk-mwustgd and prescription medicines only as told by [...] 01/29/2006 Document Revised: 06/17/2017 Document Reviewed: 06/17/2017 [employer] Interactive Patient Education ?? 2019 [employer]. Valvuloplasty, Care After This sheet gives you [...] and water are not available, use hand exterminator termite. ? Change your dressing as told by [...] health care provider. General instructions ??? Take ihdf-gsn-aadyrvc and prescription medicines only as told by your health care provider. ??? Do not take baths, swim, or use a hot tub until your health care provider approves. ??? To prevent or treat constipation while you are taking prescription pain medicine, your health care provider may recommend that you: ? Drink enough fluid to keep your urine clear or pale yellow. ? Take gqzm-tct-rlyjntb or prescription medicines. ? Eat foods that [...] 11/27/2015 Document Revised: 06/09/2017 Document Reviewed: 06/09/2017 [employer] Interactive Patient Education ?? 2019 [employer]. Moderate Conscious Sedation, Adult, Care After [...] you are awake and alert. ??? Take oyjo-zry-zrhlmqs and prescription medicines only as told by [...] 05/03/2014 Document Revised: 12/15/2016 Document Reviewed: 11/01/2016 [employer] Interactive Patient Education ?? 2019 [employer]. Groin Site Care Refer to this [...] Document Reviewed: 08/15/2011 ExitCare?? Patient Information ??2014 [employer]. Emergency Awareness and Preventative Care STROKE is [...] Assistance with quitting is available by contacting 2-079-ZYLXNOW. This is a free resource providing counseling, support, and referral. Or you may contact your personal physician. [employer] Suicide Prevention Lifeline: The National Suicide Prevention [...] was given the opportunity to ask questions. Patient/Biology Tutor Name: Patient/Biology Tutor Signature: Relationship to Patient: Clinician/Hospital Biology Tutor Signature: Date: Electronically signed by Elmer, [facility] Conversion Etl Developer Guanaco at 11/10/2022 9:20 AM CDT documented in this encounter Plan of Treatment Not on file documented as of this encounter Visit Diagnoses Not on filedocumented in this encounter
--- OUTSIDE RECORDS SUMMARY | 2025-01-16 11:48 | XMS_ITS | Encounter Summary ---
Author Organization [facility] Address [address] [place] [address] Care Team Providers Care Welt Cutter Name Role Phone Unavailable Primary Care Provider Unavailabl e Encounter Details Date Type Department Care Team (Late st Contact Info) Description 01/07/2021 Transcribed Document [facility] [place] Family Medicine [address] [place] [address] ProviderMacrina MD [address] [place] [address] Social History Tobacco Use Types [...] On: 01/07/2021 14:30 EDT by ANDREIA TITUS, CHARGE HISTOTECHNOLOGIST General Information Visit Type, CHARGE HISTOTECHNOLOGIST : Initial evaluation Patient Orders : Speech Language Pathology Additional Tx -111 Start: 01/07/21 10:25:00 EDT, For Dysphagia, Continuous Order - Speech Language Pathology Evaluation and Treatment - Start: 01/07/21 10:06:00 EDT, Routine, For Speech Language Cognitive Eval and Treat -111 ANTHONY JACOBO PA Admission Date : Admission Date/Time: 12/27/20 06:39:00 Medical Chart Reviewed, CHARGE HISTOTECHNOLOGIST : Yes Personal Devices : Personal Devices [...] stenosis 12/28/2020 12:00 Polyneuropathy, unspecified Therapy Diagnosis, CHARGE HISTOTECHNOLOGIST : Patient presents with mild cognitive impairment and moderate to severe dysarthria. Will initiate tx. Precautions in Place : Fall prevention measures Previous Speech/Language Evaluations : none Previous Swallow Precautions : none in EMR Previous Cognitive Evaluations : none Diet/Intake Prior to Current Admission : regular Diet/Intake During Current Admission : NPO with corpak Intubation Comment, CHARGE HISTOTECHNOLOGIST : 12/27-12/31, reintubated 01/01-01/05 Vital Signs RTF [...] 15:02 EDT General Status Patient Received Status, CHARGE HISTOTECHNOLOGIST : Long sitting in bed Patient Left Status, CHARGE HISTOTECHNOLOGIST : Long sitting in bed ANDREIA TITUS [...] 15:02 EDT Evaluation Methods Types of Evaluation, CHARGE HISTOTECHNOLOGIST : Formal and subtests Formal and Subtests [...] - 01/07/2021 15:02 EDT Therapy Indication Assessment CHARGE HISTOTECHNOLOGIST Indicated : Yes CHARGE HISTOTECHNOLOGIST Problem List : Impaired, Memory, Impaired, Motor Speech Potential Barriers to CHARGE HISTOTECHNOLOGIST : Cognitive deficit CHARGE HISTOTECHNOLOGIST Rehabilitation Potential : Good ANDREIA TITUS SLP - 01/07/2021 15:02 EDT LTG Lang/Comm/Cog LTG CHARGE HISTOTECHNOLOGIST Group Home Goal 1 Check Scaler Goal 2 Goals : Improved memory in [...] of Care, LCC : Acute inpatient rehab, [facility] ANDREIA TITUS SLP - 01/07/2021 15:02 EDT CHARGE HISTOTECHNOLOGIST Education STG Grid Goal #1 Activity : [...] ANDREIA TITUS SLP - 01/07/2021 15:02 EDT CHARGE HISTOTECHNOLOGIST Education Assessment Grid 1 Communication, Effects of [...]
--- OUTSIDE RECORDS SUMMARY | 2025-01-16 11:48 | XMS_ITS | Encounter Summary ---
Author Organization [facility] [employer] [facility] Address [address] [place] [address] Care Team Providers Care Order Worker Name Role Phone Unavailable Primary Care Provider Unavailabl e Encounter Details Date Type Department Care Team (Late st Contact Info) Description 12/27/2020 Transcribed Document [facility] [place] [address] [place] [address] ProviderMacrina MD [address] [place] [address] Social History Tobacco Use Types [...] Initial Visit : No Referred by : Computer Education Teacher follow-up Referral Reason Comment : Critical care [...] supported, Feelings expressed, Information provided Spiritual and Sabianism : Spiritual/Sabianism support provided BRISSA SULLIVAN 12/27/2020 13:50 EDT documented in this encounter Plan of Treatment Not on file documented as of this encounter Visit Diagnoses Not on filedocumented in this encounter
--- OUTSIDE RECORDS SUMMARY | 2025-01-16 11:48 | XMS_ITS | Encounter Summary ---
Author Organization [facility] Address [address] [place] [address] Care Team Providers Care Distribution Associate Name Role Phone Unavailable Primary Care Provider Unavailabl e Encounter Details Date Type Department Care Team (Late st Contact Info) Description 12/30/2020 Transcribed Document [facility] [place] Family Medicine [address] [place] [address] ProviderMacrina MD [address] [place] [address] Social History Tobacco Use Types Packs/Day Years [...]
--- OUTSIDE RECORDS SUMMARY | 2025-01-16 11:48 | XMS_ITS | Encounter Summary ---
Author Organization [employer] [facility] Address [address] [place] [address] Care Team Providers Care Corporate Strategy Associate Name Role Phone Unavailable Primary Care Provider Unavailabl e Encounter Details Date Type Department Care Team (Late st Contact Info) Description 12/25/2020 Transcribed Document [facility] [place] [address] [place] [address] ProviderMacrina MD [address] [place] [address] Social History Tobacco Use Types [...] Source : Measured Height Entry Format : [place] Height, Feet : 0 ft(Converted to: 0 cm, 0 Inch) Height, Inches : 67.75 Inch(Converted to: 5 ft 8 Inch, 172.08 cm) Clinical Height : 172.09 cm Weight Source : Standing scale Weight Entry Format : [place] Clinical Dosing Weight : 65.14 kg Weight, Pounds : 143 lb Weight, Ounces : 5 oz Body Surface Area (BSA) : 1.77 m2 Body Mass Index : 22 kg/m2 Thermal Body Weight : 67 kg TONY BRIDGES [...] TONY BRIDGES RN - 12/25/2020 10:50 EDT [place] Suicide Severity Rating Scale (C-SSRS) CSSRS Past [...] - Support Person/Pt Rep Contact Information : [phone] Want Family/Rep/Phys Notified of Admit : No Emergency Contact #1 : michaela Adorno Emergency Contact #1 Emergency Contact #1 Relationship : Emergency Contact #2 : n Emergency Contact #2 Phone Number : n Emergency Contact #2 Relationship : n Information Obtained From : Patient Primary Language : Gabonese Communication Barrier : None Elevator Service Mechanic Needed : No TONY BRIDGES RN - [...]
--- OUTSIDE RECORDS SUMMARY | 2025-01-16 11:48 | XMS_ITS | Encounter Summary ---
Author Organization [facility] Address [address] [place] [address] Care Team Providers Care Pack Mule Worker Name Role Phone Unavailable Primary Care Provider Unavailabl e Encounter Details Date Type Department Care Team (Late st Contact Info) Description 12/27/2020 Transcribed Document [facility] [place] [address] [place] [address] ProviderMacrina MD [address] [place], [place] [id number] Social History Tobacco Use Types Packs/Day Years [...]
--- OUTSIDE RECORDS SUMMARY | 2025-01-16 11:48 | XMS_ITS | Encounter Summary ---
Author Organization [facility] Address [address] [place] [address] Care Team Providers Care Engineering And Development Director Name Role Phone Unavailable Primary Care Provider Unavailabl e Encounter Details Date Type Department Care Team (Late st Contact Info) Description 01/07/2021 Transcribed Document [facility] [place] [facility] [place] [address] ProviderMacrina MD [address] [place] [address] Social History Tobacco Use Types [...] On: 01/07/2021 9:35 EDT by ANDREIA TITUS HOUSEKEEPING ROOM ATTENDANT General Information Visit Type, HOUSEKEEPING ROOM ATTENDANT : Initial evaluation Patient Orders : Speech Language Pathology Evaluation and Treatment -111 Start: 01/07/21 10:06:00 EDT, Routine, For Speech Language Cognitive Eval and Treat - ANTHONY JACOBO PA Speech Language Pathology Swallow Evaluation and Treatment - Start: 01/07/21 7:00:00 EDT, Routine, For Swallow Eval and Treat -111 ANTHONY JACOBO PA Admission Date : Admission Date/Time: 12/27/20 06:39:00 Medical Chart Reviewed, HOUSEKEEPING ROOM ATTENDANT : Yes Personal Devices : Personal Devices [...] stenosis 12/28/2020 12:00 Polyneuropathy, unspecified Therapy Diagnosis, HOUSEKEEPING ROOM ATTENDANT : Overt patterns of oropharyngeal dysphagia. Not [...] corpak Multiple Intubations : Yes Intubation Comment, HOUSEKEEPING ROOM ATTENDANT : 12/27-12/31, reintubated 01/01-01/05 Vital Signs RTF [...] 10:07 EDT General Status Patient Received Status, HOUSEKEEPING ROOM ATTENDANT : Sitting edge of bed Patient Left Status, HOUSEKEEPING ROOM ATTENDANT : Long sitting in bed ANDREIA TITUS [...] TITUS, BENJY - 01/07/2021 10:07 EDT] ) HOUSEKEEPING ROOM ATTENDANT Cough : Weak Facial Appearance: : Asymmetrical, [...] - 01/07/2021 10:07 EDT Therapy Indication Assessment HOUSEKEEPING ROOM ATTENDANT Indicated : Yes HOUSEKEEPING ROOM ATTENDANT Problem List : Impaired, Swallowing Potential Barriers to HOUSEKEEPING ROOM ATTENDANT : Acuity of illness, Cognitive deficit HOUSEKEEPING ROOM ATTENDANT Rehabilitation Potential : Good ANDREIA TITUS SLP - 01/07/2021 10:07 EDT Swallow Plan/Goals Treatment Frequency, HOUSEKEEPING ROOM ATTENDANT : 5 times per wk Treatment Plan Est w/Pt/Caregvr, Swallow : Yes Treatment Duration, HOUSEKEEPING ROOM ATTENDANT : Two weeks Therapy at Next Level of Care, HOUSEKEEPING ROOM ATTENDANT : Acute inpatient rehab, [facility] facility ANDREIA TITUS SLP - 01/07/2021 10:07 EDT Swallow LTG Grid HOUSEKEEPING ROOM ATTENDANT Feed Mill Supervisor Goal #1 HOUSEKEEPING ROOM ATTENDANT [facility] Goal #2 Swallow LTG : Establish safe [...] ANDREIA TITUS SLP - 01/07/2021 10:07 EDT HOUSEKEEPING ROOM ATTENDANT Education Assessment Grid 1 Aspiration : Needs [...] ANDREIA TITUS SLP - 01/07/2021 10:07 EDT HOUSEKEEPING ROOM ATTENDANT Education Assessment Grid 2 Treatment Plan : Verbalizes understanding, Needs further teaching ANDREIA TITUS SLP - 01/07/2021 10:[address] Charges Evaluation Swallowing Function : 1 ANDREIA TITUS SLP - 01/07/2021 10:07 EDT Anticipated Discharge Needs, HOUSEKEEPING ROOM ATTENDANT Anticipated Discharge to : Extended Care Facility, Rehab, high intensity Recommend Continued Therapy at Discharge : No ANDREIA TITUS SLP - 01/07/2021 10:07 EDT Electronically signed by Olinda Payne Conversion Environmental Sampling Technician Cerner at 11/10/2022 9:09 AM CDT documented in this encounter Plan of Treatment Not on file documented as of this encounter Visit Diagnoses Not on filedocumented in this encounter
--- OUTSIDE RECORDS SUMMARY | 2025-01-16 11:48 | XMS_ITS | Encounter Summary ---
Author Organization [employer] Address [address] [place] [address] Care Team Providers Care Alterations Workroom Clerk Name Role Phone Unavailable Primary Care Provider Unavailabl e Encounter Details Date Type Department Care Team (Late st Contact Info) Description 09/19/2019 Transcribed Document [facility] [place] Family Medicine [address] [place] [address] ProviderMacrina MD [address] [place] [address] Social History Tobacco Use Types Packs/Day Years Used Date Smoking Tobacco: Never Assessed Sex and Gender Information Value Date Recorded Sex Assigned at Not on file Legal Sex Male 1:13 PM CDT Gender Identity Not on file Sexual Orientation Not on file documented as of this encounter Miscellaneous Notes * Cerner Conversion Note - Macrina ProviderMD - 09/19/2019 1:28 PM CENTERLESS GRINDER SET UP OPERATOR Pre Procedure Adult Entered On: 09/19/2019 13:29 EST Performed On: 09/19/2019 13:28 EST by CELESTINA ALVARADO RN Height and Weight, Clinical Dosing Height Source : Stated Height Entry Format : Crane Height, Feet : 5 ft(Converted to: 152 cm, 60 Inch) Height, Inches : 8 Inch(Converted to: 0 ft 8 Inch, 20.32 cm) Clinical Height : 172.72 cm Weight Source : Standing scale Weight Entry Format : Crane Clinical Dosing Weight : 62.27 kg Weight, Pounds : 137 lb Body Surface Area (BSA) : 1.74 m2 Body Mass Index : 20.9 kg/m2 [place] Body Weight : 67 kg CELESTINA ALVARADO [...] - 09/19/2019 13:28 EST Electronically signed by [facility], [facility] Conversion Waste Baler Cerner at 11/10/2022 9:26 AM CDT documented in this encounter Plan of Treatment Not on file documented as of this encounter Visit Diagnoses Not on filedocumented in this encounter
--- OUTSIDE RECORDS SUMMARY | 2025-01-16 11:48 | XMS_ITS | Clinical Summary ---
Author Organization [facility] Address [address] [place] [address] Care Team Providers Care Artist'S Model Name Role Phone Unavailable Primary Care Provider [...] Date Derek rded Speak language other than Italian at home Not on file 02/17/2024 Want [...] Additional history exists Falls Risk Screening 07/27/2024 Medicare Initial AWV [id number] 09/25/2024 Influenza Vaccine (Season Ended) 2025 Tobacco Cessation Counseling and Screening (12+) 04/05/2025 04/05/2024 DTAP/TDAP/TD VACCINES (3 - T d or Tdap) 08/13/2033 08/13/2023, 07/27/[address] [place] [id number] [facility] MEDICARE ADVANTAGE
--- OUTSIDE RECORDS SUMMARY | 2025-01-16 11:48 | XMS_ITS | Encounter Summary ---
Author Organization [facility] Address [address] [place] [address] Care Team Providers Care Stumper Feller Name Role Phone Unavailable Primary Care Provider Unavailabl e Encounter Details Date Type Department Care Team (Late st Contact Info) Description 01/18/2021 Transcribed Document [facility] [place] [address] [place] [address] ProvideraMcrina MD [address] [place], [place] [address] Social History Tobacco Use Types Packs/Day Years [...] pt report given to Maryann HOWE @ [facility] via phone pt to be picked up by [facility] van @ 0802. Misty Schmitt Lpn - 01/18/2021 15:37 EDT Electronically signed by Elmer [facility] Conversion Service Order Expediter Guanaco at 11/10/2022 9:23 AM CDT documented in this encounter Plan of Treatment Not on file documented as of this encounter Visit Diagnoses Not on filedocumented in this encounter
--- OUTSIDE RECORDS SUMMARY | 2025-01-16 11:48 | XMS_ITS | Encounter Summary ---
Author Organization [facility] Address [address] [place] [address] Care Team Providers Care Licensed Embalmer Supervisor Name Role Phone Unavailable Primary Care Provider Unavailabl e Encounter Details Date Type Department Care Team (Late st Contact Info) Description 12/27/2020 Transcribed Document [facility] [place] Family Medicine [address] [place] [address] ProviderMacrina MD [address], [place] [id number] Social History Tobacco Use Types Packs/Day Years [...] : Code Referral Reason Comment : Code [facility] Provided to : Family/Significant other BRISSA SULLIVAN [...] Feelings expressed, Hope strengths identified Spiritual and Temple : Prayer shared, Spiritual/Temple support provided BRISSA SULLIVAN 12/27/2020 12:08 EDT Electronically signed by Elmer, [facility] Conversion Addiction Psychiatrist Cerner at 11/10/2022 9:07 AM CDT documented in this encounter Plan of Treatment Not on file documented as of this encounter Visit Diagnoses Not on filedocumented in this encounter
--- OUTSIDE RECORDS SUMMARY | 2025-01-16 11:48 | XMS_ITS | Encounter Summary ---
Author Organization [facility] Address [address] [place] [address] Care Team Providers Care Signal Inspector Name Role Phone Unavailable Primary Care Provider Unavailabl e Encounter Details Date Type Department Care Team (Late st Contact Info) Description 12/30/2020 Transcribed Document [facility] [place] [address] [place] [address] ProviderMacrina MD [address] [place] [address] Social History Tobacco Use Types [...]
--- OUTSIDE RECORDS SUMMARY | 2025-01-16 11:48 | XMS_ITS | Encounter Summary ---
Author Organization [facility] Address [address] [place] [address] Care Team Providers Care Hand Etcher Helper Name Role Phone Unavailable Primary Care Provider Unavailabl e Encounter Details Date Type Department Care Team (Late st Contact Info) Description 12/27/2020 Transcribed Document [facility] [place] [address] [place] [address] ProviderMacrina MD [address] [place] [address] Social History Tobacco Use Types Packs/Day Years [...] strengths identified, Hope struggles identified Spiritual and Shinto : Beliefs/Values explored, Prayer shared, Spiritual/Shinto support provided LAVERN VALDIVIA Chaplain - 12/27/2020 20:44 EDT Electronically signed by Elmer [facility] Conversion Net Sql Developer Guanaco at 11/10/2022 9:19 AM CDT documented in this encounter Plan of Treatment Not on file documented as of this encounter Visit Diagnoses Not on filedocumented in this encounter
--- OUTSIDE RECORDS SUMMARY | 2025-01-16 11:48 | XMS_ITS | Encounter Summary ---
Author Organization [facility] In [facility]atives Address [address] [place] [address] Care Team Providers Care Director Of Pharmacy Name Role Phone Unavailable Primary Care Provider Unavailabl e Encounter Details Date Type Department Care Team (Late st Contact Info) Description 12/27/2020 Transcribed Document [facility] Family Medicine [address] [place] [address] ProviderMacrina MD [address] [place] [address] Social History Tobacco Use Types Packs/Day Years Used Date Smoking Tobacco: Never Assessed Sex and Gender Information Value Date Recorded Sex Assigned at Not on file Legal Sex Male 1:13 PM CDT Gender Identity Not on file Sexual Orientation Not on file documented as of this encounter Miscellaneous Notes * Cerner Conversion Note - Macrina ProviderMD - 12/27/2020 11:[address] [facility] Main OR IntraOp Summary Primary Physician: EMEKA MADERA MD-CAT Finalized Date/Time: 12/31/20 11:24:25 Pt. Name: JOSE ADORNO Ade /Sex: 1940 Male Med Rec #: [id number] Physician: DANYELLE WALTERS MD-CAR Financial #: [id number] Pt. Type: I Room/Bed: [facility] Admit/Disch: 12/27/20 06:39:00 - Institution: [facility] IntraOp Case Attendance Entry 1 Entry 2 Entry 3 Case Attendee EMEKA MADERA BURBERRY, KEITH, MD-RACHID FAULKNER PA MD-CAT Role Performed Surgeon/Proceduralist, Anesthesiologist Physician botany laboratory assistant First Time In 12/27/20 11:19:00 12/27/20 11:19:00 12/27/20 11:19:00 Time Out 12/27/20 12:43:00 12/27/20 12:43:00 12/27/20 12:43:00 Procedure Pericardial Window Pericardial Window Pericardial Window Other Attendee Superficial Wound Closed By: Last Modified By: Leonora Joy RN Proffitt, Debbie, Leonora Davis RN 12/27/20 12:45:31 12/27/20 12:45:31 12/27/20 12:45:31 Entry 4 Entry 5 Entry 6 Case Attendee JESSY GALLO SKIDMORE, ROY Proffitt, Debbie, SHYAM Lube Worker Role Performed Lube Worker Scrub, First Back Digger Operator, First Time In 12/27/20 11:19:00 12/27/20 11:19:00 12/27/20 11:19:00 Time Out 12/27/20 12:43:00 12/27/20 12:43:00 12/27/20 12:43:00 Procedure Pericardial Window Pericardial Window Pericardial Window Other Attendee Superficial Wound Closed By: Last Modified By: Leonora Joy RN Proffitt, Debbie, Leonora Davis RN 12/27/20 12:45:31 12/27/20 12:45:31 12/27/20 12:45:31 Entry 7 Case Attendee SHAYLA COWAN RN Role Performed Back Digger Operator, Second Time In 12/27/20 11:19:00 Time Out 12/27/20 12:43:00 Procedure Pericardial Window Other Attendee Superficial Wound Closed By: Last Modified By: Leonora Joy RN 12/27/20 12:45:31 [facility] IntraOp Case Attendance Audit 12/27/20 12:45:31 Detail Supervisor: BINADE Modifier: PROFITDE 1 <+> Time Out [...] 7 <*> Procedure Pericardial Window 12/27/20 12:18:42 Detail Supervisor: PROFITDE Modifier: PROFITDE 1 <*> Case Attendee EMEKA MADERA MD-CAT 1 <*> Role Performed Surgeon/Proceduralist, First 1 <*> Time In 12/27/20 11:19:00 1 <*> Procedure Pericardial Window 2 <*> Case Attendee JEISON CRUZ MD-ANS 2 <*> Role Performed Anesthesiologist 2 <*> Time In 12/27/20 11:19:00 2 <*> Procedure Pericardial Window 3 <*> Case Attendee RACHID BRUMFIELD PA 3 <*> Role Performed Physician botany laboratory assistant 3 <*> Time In 12/27/20 11:19:00 3 <*> Procedure Pericardial Window 4 <*> Case Attendee JESSY GALLO, Lube Worker 4 <*> Role Performed Lube Worker 4 <*> Time In 12/27/20 11:19:00 4 <*> Procedure Pericardial Window 5 <*> Case Attendee TAMEKA REDD 5 <*> Role Performed Scrub, First 5 <*> Time In 12/27/20 11:19:00 5 <*> Procedure Pericardial Window 6 <*> Case Attendee Leonora Joy, RN 6 <*> Role Performed Back Digger Operator, First 6 <*> Time In 12/27/20 11:19:00 6 <*> Procedure Pericardial Window 7 <*> Case Attendee SHAYLA COWAN, RN 7 <*> Role Performed Back Digger Operator, Second 7 <*> Time In 12/27/20 11:19:00 7 <*> Procedure Pericardial Window Entry 8 was deleted. Higher numbered entries shifted one position to fill the gap. <-> 8 Case Attendee LUNA YUN, ST <-> 8 Role Performed Scrub, First <-> 8 Time In 12/27/20 12:05:00 <-> 8 Procedure Pericardial Window 12/27/20 12:09:35 Detail Supervisor: PROFITDE Modifier: PROFITDE <+> 8 Case Attendee <+> 8 Role Performed <+> 8 Time In <+> 8 Procedure 12/27/20 12:08:20 Detail Supervisor: PROFITDE Modifier: PROFITDE <+> 1 Procedure 2 <*> Procedure Pericardial Window 3 <*> Procedure Pericardial Window 4 <*> Procedure Pericardial Window 5 <*> Procedure Pericardial Window 6 <*> Procedure Pericardial Window 7 <*> Procedure Pericardial Window [facility] IntraOp Case Times Entry 1 Patient In Room Time 12/27/20 11:19:00 Out Room Time 12/27/20 12:43:00 Anesthesia Start Time 12/27/20 11:19:00 Stop Time 12/27/20 12:43:00 Anesthesia Ready 12/27/20 11:19:00 Surgery / Procedure Times Start Time 12/27/20 11:37:00 Stop Time 12/27/20 12:11:00 Last Modified By: Leonora Joy RN 12/27/20 11:45:14 [facility] IntraOp Case Times Audit 12/27/20 12:45:19 Detail Supervisor: PROFITDE Modifier: PROFITDE <+> 1 Out Room Time <+> 1 Stop Time 12/27/20 12:14:28 Detail Supervisor: PROFITDE Modifier: PROFITDE <+> [address] [facility] IntraOp Cautery Entry 1 ESU Identification Cautery Type Monopolar ESU ID Number [id number] ID Type Hospital Number Cautery Settings Cut Setting 40 Coag Setting 60 Blend Setting 2 ESU Grounding Pad Ground Pad Type Reusable electrode pad Grounding Pad Site Right Buttock Grounding Pad SHAYLA COWAN RN Applied By Grounding Pad Site Warm, dry and intact Skin Condition Before Cautery Grounding Pad Site Unchanged Skin Condition After Cautery Last Modified By: Leonora Joy RN 12/27/20 11:52:29 [facility] IntraOp Communication Entry 1 Communication To Other Comment CTVU INFORMED OF START Communication By Leonora Joy RN Date and Time 12/27/20 11:37:00 Last Modified By: Leonora Joy RN 12/27/20 11:53:44 [facility] IntraOp Counts Verification Entry 1 Procedure Pericardial Window Count Info Count Type Sponge, Sharps, Instrument, Miscellaneous Counts Verification Baseline/pre-procedure Sequence Count Results Not Applicable Counts Performed By Count Performed By TAMEKA REDD (Scrub) Count Performed By Leonora Joy RN (RN) Last Modified By: Leonora Joy RN 12/27/20 11:51:53 [facility] IntraOp Counts Final Entry 1 Procedure Pericardial Window Final Count Info Count Type Sponge, Sharps, Miscellaneous Counts Verification Skin Closure/end of Sequence procedure Count Results Correct, surgeon notified Counts Performed By Count Performed By TAMEKA REDD (Scrub) Count Performed By Leonora Joy RN (RN) Last Modified By: Leonora Joy RN 12/27/20 12:07:36 [facility] IntraOp Cultures and Spec Summary Entry 1 Cultrures and Specimens Specimen Ordered: Yes Test(s) Other: Segment text Requested/Final Disposition Last Modified By: Leonora Joy RN 12/27/20 11:53:11 General Comments: COAGS TO LAB [facility] IntraOp Departure from OR Entry 1 [...] Modified By: Leonora Joy RN 12/27/20 12:10:08 [facility] IntraOp Departure from OR Audit 12/27/20 12:48:49 Detail Supervisor: PROFITDE Modifier: PROFITDE 1 <*> Patient Transport Accompanied by RACHID BRUMFIELD PA 12/27/20 12:43:55 Detail Supervisor: PROFITDE Modifier: PROFITDE 1 <*> Patient's Normal Integumentary OPSITE AND SURGICAL INTERVENTION SITES Variance(s) 1 <+> Post-op Transport Via [facility] IntraOp Drains and Tubes Entry 1 Device Type Chest Tube Size 36 FR. RIGHT ANGLED Drain/Tube Activity Inserted, Tube secured/stabilized Drain/Tube Suction Continuous low Drain/Tube Drainage Red Device Location STERNUM Method of Drainage Continuous suction Chest Tubes Water-Seal 20 cm suction Connectivity Tube Dressing Dry, Intact Condition Last Modified By: Leonora Joy RN 12/27/20 12:09:13 [facility] IntraOp Dressing and Packing Entry 1 Type Dressing Location STERNUM Wound Dressing Item Skin Closure Glue Tape Type Paper Applied By RACHID BRUMFIELD PA Other Comments TEGADECLAUDIA, COAVADERM Last Modified By: Leonora Joy RN 12/27/20 12:08:16 [facility] IntraOp Fire Risk Assessment Entry 1 [...] Modified By: Leonora Joy RN 12/27/20 11:52:40 [facility] IntraOp General Case Practice Support Specialist 1 Case Information OR OR 14 [facility] Case Level 1 Room Verified Yes Wound Class I - Clean Specialty Cardio Thoracic Anesthesia Type General ASA Class 4E Diagnosis Preop Diagnosis CARDIAC TAMPONADE Postop Same As Preop Yes Postop Diagnosis CARDIAC TAMPONADE Last Modified By: Leonora Joy RN 12/27/20 12:08:50 [facility] IntraOp General Case Data Audit 12/27/20 12:08:50 Detail Supervisor: ELVIRA Modifier: PROFITDE <+> 1 ASA Class <+> 1 Preop Diagnosis <+> 1 Postop Diagnosis 12/27/20 11:54:29 Detail Supervisor: PROFITDE Modifier: PROFITDE 1 <*> OR Add-On 02 [facility] 1 <+> Anesthesia Type 1 <+> Postop Same As Preop 1 <+> Room Verified [facility] IntraOp Intraoperative Assessment Entry 1 Handoff [...] Modified By: Leonora Joy RN 12/27/20 11:57:17 [facility] IntraOp Intraoperative Assessment Audit 12/27/20 12:21:20 Detail Supervisor: PROFITDE Modifier: PROFITDE 1 <*> Level of Consciousness (WDL = WDL Alert, Oriented to Person, Place, and Time) 1 <*> Present Upon Arrival to OR IVs [facility] IntraOp Intraoperative Equipment Entry 1 Type Equipment Equipment Intraop Monitoring Electrocardiogram Five lead placement (ECG) Electrode Placement Blood Pressure Non-Invasive BP Device Source Blood Pressure Arterial Location Pulse Oximeter Hand, right Probe Site Antiembolic Devices Scopes Photo/Video Documentation Last Modified By: Leonora Joy RN 12/27/20 11:57:59 [facility] IntraOp Patient Positioning Entry 1 Procedure [...] Leonora Joy RN, SHAYLA COWAN RN, EMEKA AMDERA MD-CAT Position Verified Positioning Yes Verified by Anesthesia Positioning Yes Verified by Surgeon Last Modified By: Leonora Joy RN 12/27/20 12:10:24 [facility] IntraOp Sign In Entry 1 Patient, [...] Modified By: Leonora Joy RN 12/27/20 11:54:54 [facility] IntraOp Sign Out Entry 1 RN [...] Modified By: Leonora Joy RN 12/27/20 12:45:47 [facility] IntraOp Skin Prep Entry 1 Procedure [...] Modified By: Leonora Joy RN 12/27/20 12:22:20 [facility] IntraOp Skin Prep Audit 12/27/20 12:22:20 Detail Supervisor: PROFITDE Modifier: PROFITDE 1 <*> Procedure Pericardial Window 1 <*> Integumentary Assessment WDL WDL 1 <+> WDL Patient Exceptions [facility] IntraOp Surgical Procedures Entry 1 Procedure Pericardial Window Additional PERICARDIAL WINDOW Procedure Description Primary Procedure Yes Primary Surgeon EMEKA MADERA MD-CAT Start 12/27/20 11:37:00 Stop 12/27/20 12:11:00 Anesthesia Type General Specialty Cardio Thoracic Wound Class I - Clean Last Modified By: Leonora Joy RN 12/27/20 12:08:19 [facility] IntraOp Surgical Procedures Audit 12/27/20 12:45:23 Detail Supervisor: PROFITDE Modifier: PROFITDE <+> 1 Stop 12/27/20 12:10:52 Detail Supervisor: PROFITDE Modifier: PROFITDE 1 <*> Procedure Pericardial Window 1 <*> Additional Procedure Description (PERICARDIAL WINDOW, POSS STERNOTOMY) [facility] IntraOp Temp Regulation Devices Entry 1 Temp Regulation Temperature Warm blankets, Warm Regulation Device blankets Temperature Full body Regulation Site Temperature Leonora Joy RN Regulation Device Applied by Temperature ON ARRIVAL AND Regulation Comment DEPARTURE FROM THE O.R. Last Modified By: Leonora Joy RN 12/27/20 12:06:51 [facility] IntraOP Time Out Entry 1 Procedure [...] Modified By: Leonora Joy RN 12/27/20 12:12:52 [facility] IntraOP Time Out Audit 12/27/20 12:12:52 Detail Supervisor: PROFITDE Modifier: PROFITDE 1 <*> Procedure to be Performed Pericardial Window 1 <*> Time Out Comment DR. CRUZ STATED NO NEED FOR ADDITIONAL ANTIBIOTIC, ALREADY RECEIVED THIS MORNING 12/27/20 11:57:30 Detail Supervisor: PROFITDE Modifier: PROFITDE 1 <*> Beta Shasta Administered Yes 1 <*> Procedure to be Performed Pericardial Window Case Comments <None> Finalized By: TERRIE LOOMIS Document Signatures Signed By: Leonora Joy RN 12/27/20 12:48 TERRIE LOOMIS 12/31/20 11:24 Unfinalized History Date/Time Username Reason for Unfinalizing Freetext Reason for Unfinalizing 12/31/20 11:21 KOMAL Correct Billing Electronically signed by [facility] Conversion Descriptive Catalog Librarian Cerner at 11/10/2022 9:23 AM CDT documented in this encounter Plan of Treatment Not on file documented as of this encounter Visit Diagnoses Not on filedocumented in this encounter
--- OUTSIDE RECORDS SUMMARY | 2025-01-16 11:48 | XMS_ITS | Encounter Summary ---
Author Organization [employer] [facility] Address [address] [place] [address] Care Team Providers Care Microbiology Lab Technician Name Role Phone Unavailable Primary Care Provider Unavailabl e Encounter Details Date Type Department Care Team (Late st Contact Info) Description 01/18/2021 Transcribed Document [facility] Family Medicine [address] [place] [address] ProviderMacrina MD [address] [place] [address] Social History Tobacco Use Types [...] NEDA DAVIS PTA - 01/18/2021 15:50 EDT Halfway Goals Mobility/Bed Mobility LTG PT Grid Goal [...]
--- OUTSIDE RECORDS SUMMARY | 2025-01-16 11:48 | XMS_ITS | Encounter Summary ---
Author Organization [employer] [facility] [employer] Address [address] [place] [address] Care Team Providers Care Box Liner Name Role Phone Unavailable Primary Care Provider Unavailabl e Encounter Details Date Type Department Care Team (Late st Contact Info) Description 01/18/2021 Transcribed Document [facility] [place] Family Medicine [facility] [place] [address] ProviderMacrina MD [address] [place] [address] Social History Tobacco Use Types [...] Name of Receiving Facility/Provider : [facility] Mode Of Departure, General Discharge : Other: [...]
--- OUTSIDE RECORDS SUMMARY | 2025-01-16 11:48 | XMS_ITS | Encounter Summary ---
Author Organization [facility] Address [address] [place] [address] Care Team Providers Care Seed Tester Name Role Phone Unavailable Primary Care Provider Unavailabl e Encounter Details Date Type Department Care Team (Late st Contact Info) Description 01/02/2021 Transcribed Document [facility] Family Medicine [address] [place] [address] ProviderMacrina MD [address] [place] [address] Social History Tobacco Use Types [...]
--- OUTSIDE RECORDS SUMMARY | 2025-01-16 11:48 | XMS_ITS | Encounter Summary ---
Author Organization [facility] Address [address] [place] [address] Care Team Providers Care Chrome Plater Helper Name Role Phone Unavailable Primary Care Provider Unavailabl e Encounter Details Date Type Department Care Team (Late st Contact Info) Description 01/18/[address] [facility] Family Medicine [facility] [place] [address] ProviderMacrina MD [address] [place], [place] [id number] Social History Tobacco Use Types Packs/Day Years [...] 1012. 01/02/21: POD#6 Intubated and sedated on [id number]/hr and Precedex .6mcg/kg/min. He is also on [...] 2L/NC TF 50ml/hr Continue P.T. Transfer to [facility] Pt will need rehab when clinically ready 01/11/21 POD#15 O2 91% 2L/NC TF 50ml/hr Continue P.T. Awaiting transfer to [facility] 01/12/2021 POD #16 Continues tube feedings, tolerating Steady progress 01/13/2021 POD #17 ALINA Spence Will need rehab placement 01/14/2021 POD #18 Patient still not cleared for PO [facility] has accepted the patient, but he needs a PEG. Will consult general surgery for PEG placement prior to transfer to [facility] 01/15/2021 POD #19 Planning to repeat swallow evaluation. Depending on results, may require PEG prior to transfer to [facility]. 01/16/2021: POD #20 Continue tube feedings PEG tomorrow per Dr. Rodriguez Spoke with , will contact [facility] tomorrow for bed availability once PEG is placed. 01/17/2021: POD #21 Failed swallow evaluation yesterday For PEG placement today. [facility] after PEG placement today if bed available. 01/18/21: POD #22 PEG yesterday [facility] today Follow up with Dr. Solorzano two [...] Pre-Op Diagnosis, Medical. Electronically signed by [facility] Conversion Manager [employer] at 11/10/2022 9:21 AM CDT documented in this encounter Plan of Treatment Not on file documented as of this encounter Visit Diagnoses Not on filedocumented in this encounter
--- OUTSIDE RECORDS SUMMARY | 2025-01-16 11:48 | XMS_ITS | Encounter Summary ---
Author Organization [facility] [place] [facility] Address [address] [place] [address] Care Team Providers Care Neuro Intensivist Physician Name Role Phone Unavailable Primary Care Provider Unavailabl e Encounter Details Date Type Department Care Team (Late st Contact Info) Description 12/25/2020 Transcribed Document [facility] [place] Family Medicine [address] [place] [address] ProviderMacrina MD [address], [place] [id number] Social History Tobacco Use Types Packs/Day Years [...] Empathic/Engaged listening, Family/Significant other supported Spiritual and Religion : Prayer shared, Spiritual/Religion support provided BRISSA SULLIVAN - 12/27/2020 7:08 EDT documented in this encounter Plan of Treatment Not on file documented as of this encounter Visit Diagnoses Not on filedocumented in this encounter
--- OUTSIDE RECORDS SUMMARY | 2025-01-16 11:48 | XMS_ITS | Encounter Summary ---
Author Organization [facility] [employer] [facility] Address [address] [place] [address] Care Team Providers Care Tube Building Machine Operator Name Role Phone Unavailable Primary Care Provider Unavailabl e Encounter Details Date Type Department Care Team (Late st Contact Info) Description 01/18/[address] [facility] [place] [address] [place] [address] ProviderMacrina MD [address] [place], [place] [id number] Social History Tobacco Use Types Packs/Day Years [...] : 01/18: RD f/up. Pt discharging to [facility] today. S/p PEG placement on 01/17. RN reports TF was resumed this morning at 5AM and currently running @ 35ml/hr. Pt is tolerating well per RN with no residuals. Tamy Wolff Dietitian - 01/18/2021 12:41 EDT documented in this encounter Plan of Treatment Not on file documented as of this encounter Visit Diagnoses Not on filedocumented in this encounter
--- OUTSIDE RECORDS SUMMARY | 2025-01-16 11:48 | XMS_ITS | Encounter Summary ---
Author Organization [facility] Address [address] [place] [address] Care Team Providers Care Finished Cloth Examiner Name Role Phone Unavailable Primary Care Provider Unavailabl e Encounter Details Date Type Department Care Team (Late st Contact Info) Description 01/18/2021 Transcribed Document [facility] Family Medicine [address] [place] [address] ProviderMacrina MD [address] [place] [address] Social History Tobacco Use [...] On: 01/18/2021 11:54 EDT by ASHLEY CHAIDEZ RN-Unemployment Specialist Final Discharge Planning Discharge Arrangements : Patient Post-Acute Information Patient Name: JOSE ADORNO Gender: Male : [birth year] Age: 80 Years Janel Referral(s): Service: Organization: Business Address: Phone Number: Acute [facility] [address] [facility], [place], [address] Patient Offered Choice/Affiliations Explained : Yes Designation of Choice Signed : Yes Important Medicare Message Reviewed With : Patient Important Medicare Message Reviewed D/T : 01/17/2021 9:30 EDT Transportation Needs : Wheelchair van Discharge Transportation Arrangement Cmt : [facility] [place] at 1615 Follow Up Appointment Scheduled : Yes Is Patient High/Moderate Readmission Risk? : No Patient/Family Notified of Plan : Yes Support Person/Pt Rep Notified of Plan : Yes Patient/Family Notified : Patient/Spouse Is Patient Ready for Discharge? : Yes Physician Notified Patient is Ready for Discharge? 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 in agreement with the plan. ASHLEY CHAIDEZ RN-Unemployment Specialist - 01/18/2021 11:54 EDT documented in this encounter Plan of Treatment Not on file documented as of this encounter Visit Diagnoses Not on filedocumented in this encounter
--- OUTSIDE RECORDS SUMMARY | 2025-01-16 11:48 | XMS_ITS | Encounter Summary ---
Author Organization [facility] Address [address] [place] [address] Care Team Providers Care Spray Dyer Name Role Phone Unavailable Primary Care Provider Unavailabl e Encounter Details Date Type Department Care Team (Late st Contact Info) Description 12/30/2020 Transcribed Document [facility] [place] Family Medicine [address] [place] [address] ProviderMacrina MD [address] [place], [place] [address] Social History Tobacco Use Types Packs/Day Years [...]
--- OUTSIDE RECORDS SUMMARY | 2025-01-16 11:48 | XMS_ITS | Encounter Summary ---
Author Organization [employer] [facility] Address [address] [place] [address] Care Team Providers Care Tree Specialist Name Role Phone Unavailable Primary Care Provider Unavailabl e Encounter Details Date Type Department Care Team (Late st Contact Info) Description 12/27/2020 Transcribed Document [facility] [place] Family Medicine [address] [place] [address] ProviderMacrina MD [address] [place] [address] Social History Tobacco Use Types [...] Source : Measured Height Entry Format : [place] Height, Feet : 0 ft Height, Inches [...]
--- OUTSIDE RECORDS SUMMARY | 2025-01-16 11:48 | XMS_ITS | Encounter Summary ---
Author Organization [facility] In [facility] Address [address] [place] [address] Care Team Providers Care Cotton Buyer Name Role Phone Unavailable Primary Care Provider Unavailabl e Encounter Details Date Type Department Care Team (Late st Contact Info) Description 12/03/2020 Transcribed Document [facility] [place] Family Medicine [address] [place] [address] ProviderMacrina MD [address] [place] [address] Social History Tobacco Use Types [...] Source : Stated Height Entry Format : Barber Height, Feet : 5 ft(Converted to: 152 cm, 60 Inch) Height, Inches : 8 Inch(Converted to: 0 ft 8 Inch, 20.32 cm) Clinical Height : 172.72 cm Weight Source : Standing scale Weight Entry Format : Barber Clinical Dosing Weight : 66.36 kg Weight, Pounds : 146 lb Body Surface Area (BSA) : 1.79 m2 Body Mass Index : 22.2 kg/m2 [place] Body Weight : 67 kg CINDY HAGAN [...] - Support Person/Pt Rep Contact Information : [phone] Want Family/Rep/Phys Notified of Admit : No Emergency Contact #1 : Evelia Charu Adorno Emergency Contact #1 Emergency Contact #1 Relationship : Primary Language : Indonesian Communication Barrier : None CINDY HAGAN RN - 12/03/2020 13:36 EDT Vital Measurements Temperature, Fahrenheit : 97.9 Deg F Clinical Temperature, C : 36.6 Deg C Heart Rate, Apical : 60 bpm Systolic Blood Pressure : 149 mmHg (HI) Diastolic Blood Pressure : 79 mmHg Oxygen Saturation : 95 % Oxygen Therapy Mode : Room air CINDY HAGAN RN - 12/03/2020 13:53 EDT Electronically signed by Olinda Payne Conversion Credit Administration Specialist Cerner at 11/10/2022 9:14 AM CDT documented in this encounter Plan of Treatment Not on file documented as of this encounter Visit Diagnoses Not on filedocumented in this encounter
--- OUTSIDE RECORDS SUMMARY | 2025-01-16 11:48 | XMS_ITS | Encounter Summary ---
Author Organization [facility] [employer] [facility] Address [address] [place] [address] Care Team Providers Care Field Control Inspector Name Role Phone Unavailable Primary Care Provider Unavailabl e Encounter Details Date Type Department Care Team (Late st Contact Info) Description 01/07/2021 Transcribed Document [facility] [place] [address] [place] [address] ProviderMacrina MD [address] [place], [place] [id number] Social History Tobacco Use Types Packs/Day Years [...] On: 01/07/2021 14:33 EDT by SOPHY RM Rn-Golf Range AttendantPbx Installer Progress Note Discharge Arrangements : Patient Post-Acute [...] : Clinical Condition of Patient SOPHY RM Rn-Golf Range Attendant - 01/07/2021 14:33 EDT Narrative Progress Note [...] provided to pt for choicing. SOPHY RM Rn-Golf Range Attendant - 01/07/2021 14:35 EDT Historical Progress Note [...] need therapy evaluations when extubated. SOPHY RM Rn-Golf Range Attendant - 01/04/21 15:16:12 HD#7; ELOS 3; LRR; BOOST 6; POD#7 - Elective TAVR/LVentTear/CardiacTamponade/Arrest - intubated fi02 40/peep 8; SBT x 2 hr; Fent/Precedex gtt; Corpak/TF; Humza CT in place; Neurology following - MRI diffuse scattered bilateral infarcts; pt w/improvement in movement of R side; PT/OT evaluations when extubated; DCP TBD - likely rehab. SOPHY RM, Rn-Golf Range Attendant - 01/03/21 15:03:09 HD#6; ELOS 3; LRR; BOOST 6; POD #6 - Electiv TAVR/L Vent Tear/Cardiac Tamponode/Arrest - reintubated 01/01; fi02 40; Levo/Fent/Precedex gtt; wean sedation - on SBT 2hr TID; T=99.9; Dr. Navarro states during MDR that pt's spouse aware may need trach/peg; DCP TBD pending progress. SOPHY RM Rn-Golf Range Attendant - 01/02/21 14:55:12 HD#5; ELOS 3; LRR; BOOST 6; POD #5 - Elective TAVR/L Ventrial Tear/Cardiac Tamponode; extubated on 12/31 required reintubation today fi02 60/peep 8; Precedex/Fent gtt; Corpak/TF; IV Zosyn; CT draining; T=100; DCP TBD pending progress; will need therapy evals when appropriate. SOPHY RM Rn-Golf Range Attendant - 01/01/21 14:47:57 HD#4; ELOS 3; LRR; POD#4 - Electiv TAVR; L Ventrical Tear; intubated fi02 50; Cardene gtt; Corpak to be placed and TF initiated; SBT today; following commands; Head MRI ordered; possible extubation post MRI; no movement noted on R side; will need PT/OT evaluations when extubated; DCP pending progress - likely rehab. SOPHY RM Rn-Golf Range Attendant - 12/31/20 14:58:43 DCP TBD - pending progress; OP Cardiac Rehab referral placed thru [facility]. SOPHY RM Rn-Golf Range Attendant - 12/28/20 12:42:03 SOPHY RM Rn-Golf Range Attendant - 01/07/2021 14:33 EDT documented in this encounter Plan of Treatment Not on file documented as of this encounter Visit Diagnoses Not on filedocumented in this encounter
--- OUTSIDE RECORDS SUMMARY | 2025-01-16 11:48 | XMS_ITS | Encounter Summary ---
Author Organization [facility] In iatives Address [address] [place] [address] Care Team Providers Care Allergist Name Role Phone Unavailable Primary Care Provider Unavailabl e Encounter Details Date Type Department Care Team (Late st Contact Info) Description 12/27/2020 Transcribed Document [facility] [place] [address] [place] [address] ProviderMacrina MD [address] [place] [address] Social History Tobacco Use Types [...]
--- OUTSIDE RECORDS SUMMARY | 2025-01-16 11:48 | XMS_ITS | Encounter Summary ---
Author Organization [employer] [facility] Address [address] [place] [address] Care Team Providers Care Drink Box Mechanic Name Role Phone Unavailable Primary Care Provider Unavailabl e Encounter Details Date Type Department Care Team (Late st Contact Info) Description 12/29/2020 Transcribed Document [facility] [place] [address] [place] [address] ProviderMacrina MD [address] [place] [address] Social History Tobacco Use Types [...] AAT to goal at 50ml/hr + 1 [id number] daily (provides 1710kcal, 83g PRO). D/c D5W once on TF. Goal: meet est needs 3. Monitor elytes and replace prn Goal: wnls 4. Obtain wt 2x weekly goal: avoid sig wt changes Risk: High Alexa Dukes Dietitian - 12/29/2020 12:13 EDT documented in this encounter Plan of Treatment Not on file documented as of this encounter Visit Diagnoses Not on filedocumented in this encounter
--- OUTSIDE RECORDS SUMMARY | 2025-01-16 11:48 | XMS_ITS | Encounter Summary ---
Author Organization [facility] Address [address] [place] [address] Care Team Providers Care Search Planner Name Role Phone Unavailable Primary Care Provider Unavailabl e Encounter Details Date Type Department Care Team (Late st Contact Info) Description 01/18/2021 Transcribed Document [facility] [place] [address] [place] [address] ProviderMacrina MD [address] [place] [address] Social History Tobacco Use Types [...]
--- OUTSIDE RECORDS SUMMARY | 2025-01-16 11:48 | XMS_ITS | Encounter Summary ---
Author Organization [facility] Address [address] [place] [address] Care Team Providers Care Camp Coordinator Name Role Phone Unavailable Primary Care Provider Unavailabl e Encounter Details Date Type Department Care Team (Late st Contact Info) Description 12/27/2020 Transcribed Document [facility] [place] Medicine [address] [place] [address] ProviderMacrina MD [address] [place] [address] Social History Tobacco Use Types Packs/Day Years [...]
--- OUTSIDE RECORDS SUMMARY | 2025-01-16 11:48 | XMS_ITS | Encounter Summary ---
Author Organization [facility] [employer] [facility] Address [address] [place] [address] Care Team Providers Care Brokerage Office Manager Name Role Phone Unavailable Primary Care Provider Unavailabl e Encounter Details Date Type Department Care Team (Late st Contact Info) Description 11/15/2019 Transcribed Document [facility] Family Medicine [address] [place] [address] ProviderMacrina MD [address] [place] [address] Social History Tobacco Use Types [...] Source : Stated Height Entry Format : Maverick Height, Feet : 5 ft(Converted to: 152 cm, 60 Inch) Height, Inches : 8 Inch(Converted to: 0 ft 8 Inch, 20.32 cm) Clinical Height : 172.72 cm Weight Source : Standing scale Weight Entry Format : Maverick Clinical Dosing Weight : 64.09 kg Weight, Pounds : 141 lb Body Surface Area (BSA) : 1.76 m2 Body Mass Index : 21.5 kg/m2 [place] Body Weight : 67 kg ASHLEY STAFFORD [...] ASHLEY STAFFORD RN - 11/15/2019 7:25 EDT [place] Suicide Severity Rating Scale (C-SSRS) CSSRS Past [...] Box Emergency Contact #1 Phone Number : [phone] Emergency Contact #1 Relationship : Emergency Contact #2 : na Emergency Contact #2 Phone Number : na Emergency Contact #2 Relationship : na Chief Complaint : heart cath/BAV Information Obtained From : Patient Primary Language : St Helenian Communication Barrier : None ASHLEY STAFFORD RN [...] Scale Risk Level : 0-24 Low Risk Placida Fall Interventions : Adequate lighting, Assistive devices [...]
--- OUTSIDE RECORDS SUMMARY | 2025-01-16 11:48 | XMS_ITS | Encounter Summary ---
Author Organization [employer] [facility] Address [address] [place] [address] Care Team Providers Care Food Quality Technician Name Role Phone Unavailable Primary Care Provider Unavailabl e Encounter Details Date Type Department Care Team (Late st Contact Info) Description 12/03/2020 Transcribed Document [facility] [place] Medicine [address] [place] [address] ProviderMacrina MD [address] [place] [address] Social History Tobacco Use Types [...] None. SOCIAL HISTORY: The patient lives in [place]. 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 He [...] review Mr. Adorno and determine further recommendation. /[id number] DICTATED BY: LUCÍA Phelps for Cuauhtemoc Gresham MD MD SOHAM Carrington/STACIE / SOHAM / SOHAIL /[id number] Patient was seen and examined by me [...]
--- OUTSIDE RECORDS SUMMARY | 2025-01-16 11:48 | XMS_ITS | Clinical Summary ---
Author Organization [facility] Address [address] [place] [address] Care Team Providers Care Editor Magazine Name Role Phone Robert Batista MD Primary Care Provider [phone] Allergies No known active allergies Medications amLODIPine [...] Office Visit [facility] [address] [place] [address] Darell Turcios MD Soft tissue sarcoma (CMS/HCC) (Primary Dx) 11/07/2024 9:10 AM EDT - 11/07/2024 11:59 PM EDT Hospital Encounter [facility] [address] [place] [address] Soft tissue sarcoma (CMS/HCC) Discharge Disposition: Home [...] any [facility] in the [facility], were you homeless or living in [...] drink first t ember in the morning (EYE-ACROBATIC DANCER) to steady your nerves or to get rid of a hangover? 0 08/14/2023 CAGE Questionnaire Score 0 024 Utilities Answer Date Recorded In the past 12 months has th e [employer], gas, oil, or water [employer] threatened to shut off services in your [...] 9:25 AM EDT Appointment [facility] [address] [place] [address] 02/06/2025 10:45 AM EDT Office Visit [facility] [address] [place] [address] Darell Turcios MD [address] [facility] [address] [place] [address] 02/13/2025 12:50 PM EDT Consult [place] [facility] [address] [place] [address] Tari Christie PA [address] [place] [address] Health Maintenance Due Date Last Done Comments [facility]-Bone Density Scan 1940 [facility]-Medicare Annual Wellness (AWV) 1940 [facility]-/Child/Adol SDOH Screenings 1940 [facility]-Hepatitis A Vaccines (1 of 2 - Risk 2-dose series) 1958 [facility]-Pneumococcal Vaccine: 50+ Years (1 of 2 - PCV) 1958 [facility]-Zoster Vaccines (1 of 2) 1958 [facility]-RSV Vaccine: 60+ Years or (1 - 1-dose 75+ series) 2014 [id number] Vaccine ( season) 2024 05/14/2022, 04/17/2021, 09/22/2020, [...] on 11/07/2024 11:29 AM Leandra L Profitt CERT OCCUPATIONAL THERAPY ASST IMG XR PROCEDURES Final Res ult from Last 3 Months Insurance CLAUDIA CLARK [id number] [facility] MEDICARE Advance Directives * Full Code [...] Patient has decision-making capacity? Yes Care Teams Editor Magazine Relationship Specialty Start Date End Date Robert Batista MD [address] [place] [address] #1 #1 CLAUDIA Lemus [phone] PCP - General 12/07/20
--- OUTSIDE RECORDS SUMMARY | 2025-01-16 11:48 | XMS_ITS | Encounter Summary ---
Author Organization [facility] [facility] Address [address] [place] [address] Care Team Providers Care Crucible Furnace Tender Name Role Phone Unavailable Primary Care Provider Unavailabl e Encounter Details Date Type Department Care Team (Late st Contact Info) Description 01/18/2021 Transcribed Document [facility] [place] [address] [place] [address] ProviderMacrina MD [address] [place] [address] Social History Tobacco Use Types [...] including vitamins, herbs, eye drops, creams, and qcmf-wfx-yxzpcdc medicines. ??? Any problems you or family [...]
--- OUTSIDE RECORDS SUMMARY | 2025-01-16 11:48 | XMS_ITS | Encounter Summary ---
Author Organization [employer] In [facility] Address [address] [place] [address] Care Team Providers Care Cardiology Physician Assistant Name Role Phone Unavailable Primary Care Provider Unavailabl e Encounter Details Date Type Department Care Team (Late st Contact Info) Description 12/30/2020 Transcribed Document [address] [address] Abby Rodrigues MD [address] [place] [address] Social History Tobacco Use Types Packs/Day Years [...] Basic Information PCP: Robert Batista MD Primary Dentist Private Practice: Arthur Gomez MD Subjective on vent. moving [...] 24 Hours) Radiology Results (Last 48 hours) [id number] -- 12/27/2020 06:39 CR Chest 1 Vw [...] s/p pericardiocentesis and surgical repain of LV [place]. PEA Arrest; CODE called 10 minutes to [...]
--- OUTSIDE RECORDS SUMMARY | 2025-01-16 11:48 | XMS_ITS | Encounter Summary ---
Author Organization [facility] Address [address] [place] [address] Care Team Providers Care Android Ios Developer Name Role Phone Unavailable Primary Care Provider Unavailabl e Encounter Details Date Type Department Care Team (Late st Contact Info) Description 12/27/2020 Transcribed Document [facility] [place] Family Medicine [facility] [place] [address] ProviderMacrina MD [address], [place] [id number] Social History Tobacco Use Types Packs/Day Years [...] Problems Aortic stenosis, severe / SNOMED CT 4224543874 / Confirmed Hypertension / SNOMED CT 69524805 / Confirmed Hyperlipidemia / SNOMED CT 34389052 / Confirmed HTN - Hypertension / SNOMED CT 9857836237 / Confirmed H/O peripheral neuropathy / SNOMED CT 522790318 / Confirmed feet tingle all the time GERD - Gastro-esophageal reflux disease / SNOMED CT 2930491570 / Confirmed Disorder of prostate / SNOMED CT 08893429 / Confirmed Colorectal surgery / SNOMED CT 5146279831 / Confirmed Back pain, chronic / SNOMED CT 494258106 / Confirmed Chronic anxiety / SNOMED CT 585807714 / Confirmed At risk for sleep apnea / IMO 87334061 / Confirmed Arthritis of right knee / SNOMED CT 1551181591 / Confirmed Aortic valve stenosis / SNOMED CT 962410273 / Confirmed 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, Active Problems (13) Aortic stenosis, severe Aortic [...] 42.2 12/27/2020 12:11 pO2 Art POC 245.0 [place] 12/27/2020 12:11 HCO3 Art POC 18.9 LOW 12/27/2020 12:11 tCO2 Art POC 20.0 LOW 12/27/2020 12:11 BE Art POC -8.0 LOW 12/27/2020 12:11 sO2 Art POC >99.9 [place] 12/27/2020 12:11 ABG Num of Draw Attempts [...] and management in my note later today Electronically signed by Olinda Payne Conversion Construction Equipment Operator Cerner at 11/10/2022 9:22 AM CDT documented in this encounter Plan of Treatment Not on file documented as of this encounter Visit Diagnoses Not on filedocumented in this encounter
--- OUTSIDE RECORDS SUMMARY | 2025-01-16 11:48 | XMS_ITS | Encounter Summary ---
Author Organization [facility] Address [address] [place] [address] Care Team Providers Care Emts Name Role Phone Unavailable Primary Care Provider Unavailshelly e Encounter Details Date Type Department Care Team (Late st Contact Info) Description 02/05/2021 Transcribed Document [facility] [place] [facility] [place] [address] ProviderMacrina MD [address] [place], [place] 4[address]41 Social History Tobacco Use Types Packs/Day Years [...] On: 02/05/2021 16:02 EDT by Kathy Medrano plate former Follow Up Phone Call Third Call Date/Time [...] TOVARCORNELIUS - 10:15 AM [facility] Cardiac Rehabilitation - Within 6 weeks DANYELLE [...] , states the patient is still at [facility]. Pt is doing well and is improving every day. He is going to be discharged from [facility] on thursday. He has follow ups scheduled [...] Kathy Medrano RN - 03/25/2021 15:58 EDT documented in this encounter Plan of Treatment Not on file documented as of this encounter Visit Diagnoses Not on filedocumented in this encounter
--- OUTSIDE RECORDS SUMMARY | 2025-01-16 11:48 | XMS_ITS | Encounter Summary ---
Author Organization [facility] Address [address] [place] [address] Care Team Providers Care Supervisor Vegetable Farming Name Role Phone Unavailable Primary Care Provider Unavailabl e Encounter Details Date Type Department Care Team (Late st Contact Info) Description 12/03/2020 Transcribed Document [facility] [place] [address] [place] [address] ProviderMacrina MD [address] [place] [address] Social History Tobacco Use Types [...]
--- OUTSIDE RECORDS SUMMARY | 2025-01-16 11:48 | XMS_ITS | Encounter Summary ---
Author Organization [facility] [employer] In [facility] Address [address] [place] [address] Care Team Providers Care Upper Cutter Machine Name Role Phone Unavailable Primary Care Provider Unavailabl e Encounter Details Date Type Department Care Team (Late st Contact Info) Description 01/18/2021 Transcribed Document [facility] [place] Family [place] [address] [place] [address] ProviderMacrina MD [address] [place], [place] [id number] Social History Tobacco Use Types Packs/Day Years Used Date Smoking Tobacco: Never Assessed Sex and Gender Information Value Date Recorded Sex Assigned at Not on file Legal Sex Male 1:13 PM CDT Gender Identity Not on file Sexual Orientation Not on file documented as of this encounter Miscellaneous Notes * Cerner Conversion Note - Macrina ProviderMD - 01/18/2021 12:15 PM CDT Discharge Summary, PUBLIC WORKS LABORER Entered On: 01/18/2021 10:17 EDT Performed On: 01/18/2021 12:15 EDT by JUAN MANUEL BRUMFIELD PUBLIC WORKS LABORER Discharge Notation. PUBLIC WORKS LABORER Dysphagia Treatment After Discharge : Yes Discharge [...] Treatment Indicated : Yes Discharge Summary Comment, PUBLIC WORKS LABORER : PEG successfully placed yesterday. Pt is being d/c to [facility] today. He will need continued ST services to target dysphagia, dysarthria, and cognitive-linguistic deficits. He will need repeat instrumental prior to initiating PO diet. JUAN MANUEL BRUMFIELD SLP - 01/18/2021 10:15 EDT LTG Lang/Comm/Cog LTG PUBLIC WORKS LABORER City Supervisor Goal 1 Long-Term Goal 2 Goals : Improved memory in order to complete functional task(s) upon discharge Improved problem solving in order to complete functional task(s) upon discharge Status : Not met Not met JUAN MANUEL BRUMFIELD SLP - 01/18/2021 10:15 EDT JUAN MANUEL BRUMFIELD, BENJY - 01/18/2021 10:15 EDT STG Lang_Comm_Cog PUBLIC WORKS LABORER Education STG Grid Goal #1 Activity : Other: Pt's goal is to get out of the hospital JUANM ANUEL BRUMFIELD SLP - 01/18/2021 10:15 EDT Motor [...] - 01/18/2021 10:15 EDT JUAN MANUEL BRUMFIELD, PUBLIC WORKS LABORER - 01/18/2021 10:15 EDT JUAN MANUEL BRUMFIELD PUBLIC WORKS LABORER - 01/18/2021 10:15 EDT Swallow Plan/Goals Swallow LTG Grid [facility] Long-Term Goal #1 PUBLIC WORKS LABORER City Supervisor Goal #2 Swallow LTG : Establish safe oral diet without aspiration Improve swallowing function for oral intake Status : Not met Not met JUAN MANUEL BRUMFIELD SLP - 01/18/2021 10:15 EDT JUAN MANUEL BRUMFIELD, PUBLIC WORKS LABORER - 01/18/2021 10:15 EDT Swallow Goals Grid [...] Met : 01/10/2021 EDT 01/10/2021 EDT JUAN AMNUEL BRUMFIELD, PUBLIC WORKS LABORER - 01/18/2021 10:15 EDT JUAN MANUEL BRUMFIELD, PUBLIC WORKS LABORER - 01/18/2021 10:15 EDT JUAN MANUEL BRUMFIELD, [facility] - 01/18/2021 10:15 EDT JUAN MANUEL BRUMFIELD, [facility] - 01/18/2021 10:15 EDT Goal #5 Goal [...] - 01/18/2021 10:15 EDT JUAN MANUEL BRUMFIELD, PUBLIC WORKS LABORER - 01/18/2021 10:15 EDT JUAN MANUEL BRUMFIELD, PUBLIC WORKS LABORER - 01/18/2021 10:15 EDT JUAN MANUEL BRUMFIELD, PUBLIC WORKS LABORER - 01/18/2021 10:15 EDT Goal #9 Swallow [...]
--- OUTSIDE RECORDS SUMMARY | 2025-01-16 11:48 | XMS_ITS | Referral Summary ---
Author Organization [facility] In [facility]atives Address [address] [place] [address] Care Team Providers Care Brim Greaser Operator Name Role Phone Unavailable Primary Care [...] Date Derek rded Speak language other than Cymraes at home Not on file 02/17/2024 Want [...] [place] [phone] [facility] MEDICARE ADVANTAGE
--- OUTSIDE RECORDS SUMMARY | 2025-01-16 11:48 | XMS_ITS | Encounter Summary ---
Author Organization [employer] [facility] Address [address] [place] [address] Care Team Providers Care Pie Chef Name Role Phone Unavailable Primary Care Provider Unavailabl e Encounter Details Date Type Department Care Team (Late st Contact Info) Description 12/30/2020 Transcribed Document [facility] [place] Family Medicine [address] [place] [address] ProviderMacrina MD [address] [place] [address] Social History Tobacco Use Types [...] Source : Measured Height Entry Format : [place] Height, Feet : 0 ft Height, Inches [...]
--- OUTSIDE RECORDS SUMMARY | 2025-01-16 11:48 | XMS_ITS | Encounter Summary ---
Author Organization [facility] Address [address] [place] [address] Care Team Providers Care Hydrographical Technical Officer Name Role Phone Unavailable Primary Care Provider Unavailabl e Encounter Details Date Type Department Care Team (Late st Contact Info) Description 01/18/2021 Transcribed Document [facility] [place] [address] [place] [address] ProviderMacrina MD [address] [place], [place] [address] Social History Tobacco Use Types Packs/Day Years [...] CDT TOTAL Crystalloid for the procedure: 800ml documented in this encounter Plan of Treatment Not on file documented as of this encounter Visit Diagnoses Not on filedocumented in this encounter
--- OUTSIDE RECORDS SUMMARY | 2025-01-16 11:48 | XMS_ITS | Encounter Summary ---
Author Organization [facility] In iatives Address [address] [place] [address] Care Team Providers Care Education Dean Name Role Phone Unavailable Primary Care Provider Unavailabl e Encounter Details Date Type Department Care Team (Late st Contact Info) Description 12/27/2020 Transcribed Document [facility] Cardiology [address] [place] [address] Enrique Valle MD 1401 [facility] [address] [place] [id number] Social History Tobacco Use Types Packs/Day Years [...] first and second operators. As a third tuber machine operator helper participated in the procedure including image interpretation, vascular access and closure, preparation of wires and catheters and verification of valve orientation. This procedure was going as planned until the time when the valve was across the [place] aortic valve and being positioned when the [...] effusion and drainage and critical care management. /[id number] MD NIXON Gandhi/AQ / MWRima / MODL /[id number] documented in this encounter Plan of Treatment Not on file documented as of this encounter Visit Diagnoses Not on filedocumented in this encounter
--- OUTSIDE RECORDS SUMMARY | 2025-01-16 11:48 | XMS_ITS | Encounter Summary ---
Author Organization [facility] Address [address] [place] [address] Care Team Providers Care Engineering Laboratory Technician Name Role Phone Unavailable Primary Care Provider Unavailabl e Encounter Details Date Type Department Care Team (Late st Contact Info) Description 12/27/2020 Transcribed Document [facility] [place] [place] Family Medicine [address] [place] [address] ProviderMacrina MD [address] [place], [place] 915721 Social History Tobacco Use Types Packs/Day Years [...] Initial Visit : No Referred by : Inspector Precision Assembly follow-up Ministry Provided to : Patient, Family/Significant [...] follow up visit as recommended by previous retail product demo specialist. Supportive presence and conversation provided for patient's [...]
--- OUTSIDE RECORDS SUMMARY | 2025-01-16 11:48 | XMS_ITS | Encounter Summary ---
Author Organization [employer] In iatives Address [address] [place] [address] Care Team Providers Care Hand Tire Trimmer Name Role Phone Unavailable Primary Care Provider Unavailabl e Encounter Details Date Type Department Care Team (Late st Contact Info) Description 12/05/2020 Transcribed Document [facility] Pulm & Critical Care Medicine [address] [place] [address] [address] [place] [address] Erick Navarro MD 1401 [facility] [address] [place] [address] Social History Tobacco Use Types [...] obesity, but the patient's BMI is 22.79. /[id number] MD CARLOS Hernandez/STACIE / CARLOS / MODL /[id number] documented in this encounter Plan of Treatment Not on file documented as of this encounter Visit Diagnoses Not on filedocumented in this encounter
--- OUTSIDE RECORDS SUMMARY | 2025-01-16 11:48 | XMS_ITS | Encounter Summary ---
Author Organization [facility] Address [address] [place] [address] Care Team Providers Care Research Instructor Name Role Phone Unavailable Primary Care Provider Unavailabl e Encounter Details Date Type Department Care Team (Late st Contact Info) Description 12/03/2020 Transcribed Document [facility] [place] Family Medicine [address] [place] [address] ProviderMacrina MD [address] [place], [place] 859141 Social History Tobacco Use Types Packs/Day Years [...]
--- OUTSIDE RECORDS SUMMARY | 2025-01-16 11:48 | XMS_ITS | Encounter Summary ---
Author Organization [facility] Address [address] [place] [address] Care Team Providers Care Account Representative Name Role Phone Unavailable Primary Care Provider Unavailabl e Encounter Details Date Type Department Care Team (Late st Contact Info) Description 11/15/2019 Transcribed Document [facility] [place] Family Medicine [address] [place] [address] ProviderMacrina MD [address] [place], [place] [id number] Social History Tobacco Use Types Packs/Day Years Used Date Smoking Tobacco: Never Assessed Sex and Gender Information Value Date Recorded Sex Assigned at Not on file Legal Sex Male 1:13 PM CDT Gender Identity Not on file Sexual Orientation Not on file documented as of this encounter Miscellaneous Notes * Cerner Conversion Note - Macrina ProviderMD - 11/15/2019 1:53 PM CDT Stroke/Warfarin [...] : LDL Level No qualifying data available. JASON TAVAREZ RN - 11/15/2019 13:53 EDT documented in this encounter Plan of Treatment Not on file documented as of this encounter Visit Diagnoses Not on filedocumented in this encounter
--- OUTSIDE RECORDS SUMMARY | 2025-01-16 11:48 | XMS_ITS | Encounter Summary ---
Author Organization [facility] In [facility] Address [address] [place] [address] Care Team Providers Care Office Cleaner Name Role Phone Unavailable Primary Care Provider Unavailabl e Encounter Details Date Type Department Care Team (Late st Contact Info) Description 12/27/2020 Transcribed Document [facility] [place] [facility] [place] [address] ProviderMacrina MD [address] [place] [address] Social History Tobacco Use Types [...] left ventricular tear. ANESTHESIA: General endotracheal anesthesia. PLC CONTROLS ENGINEER: Hao Salazar, Physician Milk Pickup Driver. INDICATION FOR PROCEDURE: Mr. Francesco Adorno is [...] was then reapproximated using silk sutures. A 36-Hungarian right angle chest tube was placed in [...] important to mention that there was a 36-Hungarian right angle chest tube that was in [...] was transferred to the intensive care unit. /[id number] Cuauhtemoc Gresham MD HRM/AQ / HRM / MODL /[id number] CC: MD Arthur Carrington MD Electronically signed by Elmer [facility] Conversion Surface To Air Weapons Officer Cerner at 11/10/2022 9:14 AM CDT documented in this encounter Plan of Treatment Not on file documented as of this encounter Visit Diagnoses Not on filedocumented in this encounter
--- OUTSIDE RECORDS SUMMARY | 2025-01-16 11:48 | XMS_ITS | Encounter Summary ---
Author Organization [facility] Address [address] [place] [address] Care Team Providers Care Laminator Printed Circuit Boards Name Role Phone Unavailable Primary Care Provider Unavailabl e Encounter Details Date Type Department Care Team (Late st Contact Info) Description 11/15/2019 Transcribed Document [facility] [place] [address] [place] [address] ProviderMacrina MD [address] [place] [address] Social History Tobacco Use Types [...] 11/15/2019 13:50 EDT Electronically signed by Elmer [facility] Conversion Metal Casket Assembler Cerner at 11/10/2022 9:13 AM CDT documented in this encounter Plan of Treatment Not on file documented as of this encounter Visit Diagnoses Not on filedocumented in this encounter
--- OUTSIDE RECORDS SUMMARY | 2025-01-16 11:48 | XMS_ITS | Encounter Summary ---
Author Organization [facility] Address [address] [id number] Care Team Providers Care Negotiations Director Name Role Phone Robert Batista MD Primary Care Provider [phone] Encounter Details Date Type Department Care Team (Late Contact Info) Description 12/15/2022 Orders Only External Location [address] [place] [phone] Christiano Rm MD [address] [place] [address] Social History Tobacco Use Types Packs/Day [...] AM EDT Appointment [facility] Rad[facility] [address] [place] [address] 02/06/2025 10:45 AM EDT Office Visit [facility] [address] [place] [address] Darell Turcios MD [address] [facility] [address] [place] [address] 02/13/2025 12:50 PM EDT [facility] [address] [place] [address] Tari Christie PA [address] [place] [phone] documented as of this encounter Procedures Procedure [...] on filedocumented in this encounter Care Teams Negotiations Director Relationship Specialty Start Date End Date Robert Batsita MD [address] [place] [address] [address] [place] [address] PCP - General 12/07/20 documented as of this encounter
--- OUTSIDE RECORDS SUMMARY | 2025-01-16 11:48 | XMS_ITS | Encounter Summary ---
Author Organization [facility] Address [address] [place] [address] Care Team Providers Care Automobile Service Advisor Name Role Phone Unavailable Primary Care Provider Unavailabl e Encounter Details Date Type Department Care Team (Late st Contact Info) Description 12/30/2020 Transcribed Document [facility] Pulm & Critical Care Medicine [address] [place] [address] [address] [place] [address] Kapil River MD [address] [facility] [address] [place] [address] Social History Tobacco Use Types [...] (Current Encounter/Past 24 Hours) pH Art 7.52 KS 12/30/2020 08:28 pCO2 Art 33.0 LOW 12/30/2020 08:28 pO2 Art 57.7 LOW 12/30/2020 08:28 HCO3 Art 26.7 HI 12/30/2020 08:28 BE Art 3.8 KS 12/30/2020 08:28 sO2 Art 92.4 LOW 12/30/2020 [...] 12/30/2020 04:00 Radiology Results (Last 48 hours) [id number] -- 12/27/2020 06:39 CR Chest 1 Vw [...] critical care time excluding procedures. Discussed with COAT PADDER: RN and patient's at bedside. documented in this encounter Plan of Treatment Not on file documented as of this encounter Visit Diagnoses Not on filedocumented in this encounter
--- OUTSIDE RECORDS SUMMARY | 2025-01-16 11:49 | XMS_ITS | Encounter Summary ---
Author Organization [facility] Address [address] [place] [address] Care Team Providers Care Lamp Wirer Name Role Phone Unavailable Primary Care Provider Unavailabl e Encounter Details Date Type Department Care Team (Late st Contact Info) Description 01/08/2021 Transcribed Document [facility] [place] [facility] [address] ProviderMacrina MD [address] [place] [address] Social History Tobacco Use Types [...] 0.5 MCG/KG/. Awake and following commands, positive or assistant in bilateral hands. MRI brain yesterday [...] 180s. 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 but weaker on [...] At risk for sleep apnea / IMO 80924102 / Confirmed Colorectal surgery / SNOMED CT 7711701484 / Confirmed Aortic valve stenosis / SNOMED CT 558726412 / Confirmed HTN - Hypertension / SNOMED CT 8395422730 / Confirmed At risk for violence / IMO 40744078 / Confirmed Hypertension / SNOMED CT 38458513 / Confirmed Hyperlipidemia / SNOMED CT 60971956 / Confirmed Chronic anxiety / SNOMED CT 136479126 / Confirmed GERD - Gastro-esophageal reflux disease / SNOMED CT 5357722981 / Confirmed Disorder of prostate / SNOMED CT 70178590 / Confirmed Back pain, chronic / SNOMED CT 845389911 / Confirmed Aortic stenosis, severe / SNOMED CT 6911257682 / Confirmed Arthritis of right knee / SNOMED CT 7989198330 / Confirmed H/O peripheral neuropathy / SNOMED CT 351490902 / Confirmed feet tingle all the time Resolved: Cancer of colon / SNOMED CT 7412229063, Active Problems (14) Aortic stenosis, severe Aortic [...] 14) H 119 (CESAR 13) H 126 (ECSAR 12) Ca 8.8 (CESAR 15) 8.5 (CESAR [...] H 55.9 (CESAR 03) AST H 40 (CESAR 15) 35 (CESAR 14) [...] 24 Hours) Radiology Results (Last 48 hours) [id number] -- 12/27/2020 06:39 CR Chest 1 Vw [...] heart is stable in size. The lung dkyes demonstrate no significant change in the perihilaropacities [...]
--- OUTSIDE RECORDS SUMMARY | 2025-01-16 11:49 | XMS_ITS | Encounter Summary ---
Author Organization [facility] Address [address] [place] [address] Care Team Providers Care Spiritual Advisor Name Role Phone Unavailable Primary Care Provider Unavailabl e Encounter Details Date Type Department Care Team (Late st Contact Info) Description 01/14/2021 Transcribed Document [facility] [place] Family Medicine [address] [place] [address] ProviderMacrina MD [address] [place] [address] Social History Tobacco Use Types [...] will be a very good candidate for [facility] when ready for discharge; mood [...]
--- OUTSIDE RECORDS SUMMARY | 2025-01-16 11:49 | XMS_ITS | Encounter Summary ---
Author Organization [facility] In iatives Address [address] [place] [address] Care Team Providers Care Customer Care Agent Name Role Phone Unavailable Primary Care Provider Unavailabl e Encounter Details Date Type Department Care Team (Late st Contact Info) Description 01/08/2021 Transcribed Document [facility] [place] Family Medicine [address] [place] [address] ProviderMacrina MD [address] [place] [address] Social History Tobacco Use Types [...] : Yes Central Line Insertion Facility : [facility] Central Line Insertion Start Date/Time : 01/08/2021 11:13 EDT Central Catheter Type : Power injection PICC Central Line Lot Number : [id number] Central Line Vessel Cannulated : Brachial vein [...] Summer Navas RN - 01/08/2021 11:37 EDT documented in this encounter Plan of Treatment Not on file documented as of this encounter Visit Diagnoses Not on filedocumented in this encounter
--- OUTSIDE RECORDS SUMMARY | 2025-01-16 11:49 | XMS_ITS | Encounter Summary ---
Author Organization [facility] Address [address] [place] [address] Care Team Providers Care Spa Coordinator Name Role Phone Unavailable Primary Care Provider Unavailabl e Encounter Details Date Type Department Care Team (Late st Contact Info) Description 01/12/2021 Transcribed Document [facility] [place] [address] [place] [address] ProviderMacrina MD [address] [place], [place] 478391 Social History Tobacco Use Types Packs/Day Years [...]
--- OUTSIDE RECORDS SUMMARY | 2025-01-16 11:49 | XMS_ITS | Encounter Summary ---
Author Organization [facility] Address [address] [place] [address] Care Team Providers Care Merit System Director Name Role Phone Unavailable Primary Care Provider Unavailabl e Encounter Details Date Type Department Care Team (Late st Contact Info) Description 01/08/2021 Transcribed Document [facility] [place] [address] [place] [address] ProviderMacrina MD [address] [place], [place] 879141 Social History Tobacco Use Types Packs/Day Years [...]
--- OUTSIDE RECORDS SUMMARY | 2025-01-16 11:49 | XMS_ITS | Encounter Summary ---
Author Organization [facility] Address [address] [place] [address] Care Team Providers Care Aquatic Physiotherapist Name Role Phone Unavailable Primary Care Provider Unavailabl e Encounter Details Date Type Department Care Team (Late st Contact Info) Description 01/14/2021 Transcribed Document [facility] [place] [facility] [place] [address] ProviderMacrina MD [address] [place], [place] [address] Social History Tobacco Use Types Packs/Day Years [...] 0.5 MCG/KG/. Awake and following commands, positive prosthodontist in bilateral hands. MRI brain yesterday revealed [...] 180s. 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 Recommend transfer to [facility] for inpatient rehab. FULL CODE Prognosis - [...]
--- OUTSIDE RECORDS SUMMARY | 2025-01-16 11:49 | XMS_ITS | Encounter Summary ---
Author Organization [facility] Address [address] [place] [address] Care Team Providers Care Paint Roller Covers Supervisor Name Role Phone Unavailable Primary Care Provider Unavailabl e Encounter Details Date Type Department Care Team (Late st Contact Info) Description 01/14/2021 Transcribed Document [facility] [place] Family Medicine [address] [place] [address] ProviderMacrina MD [address] [place] [address] Social History Tobacco Use Types [...] EDT Electronically signed by Elmer, Olinda Conversion Musculoskeletal Physiotherapist Cerner at 11/10/2022 9:27 AM CDT documented in this encounter Plan of Treatment Not on file documented as of this encounter Visit Diagnoses Not on filedocumented in this encounter
--- OUTSIDE RECORDS SUMMARY | 2025-01-16 11:49 | XMS_ITS | Encounter Summary ---
Author Organization [facility] In [facility] Address [address] [place] [address] Care Team Providers Care Clinical Documentation Specialist Name Role Phone Unavailable Primary Care Provider Unavailabl e Encounter Details Date Type Department Care Team (Late st Contact Info) Description 01/14/2021 Transcribed Document [facility] [place] Family Medicine [address] [place] [address] ProviderMacrina MD [address] [place], [place] 184151 Social History Tobacco Use Types Packs/Day Years [...] On: 01/14/2021 17:33 EDT by [facility] Coord Phone Call for Consults Consult Phone Call/Page Attempt : First call Consult Reason : PEG placement Physician Requesting Consult : EMEKA MADERA MD-CAT Physician Requested for Consult : PEYTON BEATTY MD Provider Service Notified Name : Other: general surgery Date and Time Call Returned : 01/15/2021 10:27 EDT [facility] - 01/15/2021 10:26 EDT Electronically signed by Elmer [facility] Conversion Machine Spring Former Cerner at 11/10/2022 9:08 AM CDT documented in this encounter Plan of Treatment Not on file documented as of this encounter Visit Diagnoses Not on filedocumented in this encounter
--- OUTSIDE RECORDS SUMMARY | 2025-01-16 11:49 | XMS_ITS | Encounter Summary ---
Author Organization [facility] Address [address] [place] [address] Care Team Providers Care Cutter Helper Name Role Phone Unavailable Primary Care Provider Unavailabl e Encounter Details Date Type Department Care Team (Late st Contact Info) Description 01/08/2021 Transcribed Document [facility] [place] Medicine [facility] [place] [address] ProviderMacrina MD [address] [place], [place] [address] Social History Tobacco Use Types Packs/Day Years [...] Surgery; Critical aortic stenosis; Peripheral neuropathy Author: FRADNY CARSON PA Basic Information Mr. Jose Adorno [...] 1012. 01/02/21: POD#6 Intubated and sedated on Kebkslkf153kji/hr and Precedex .6mcg/kg/min. He is also on [...] and I know he just worked with [employer]. Health Status Allergies: Allergic Reactions (Selected) No [...]
--- OUTSIDE RECORDS SUMMARY | 2025-01-16 11:49 | XMS_ITS | Encounter Summary ---
Author Organization [facility] In iatives Address [address] [place] [address] Care Team Providers Care Tunnel Kiln Firer Name Role Phone Unavailable Primary Care Provider Unavailabl e Encounter Details Date Type Department Care Team (Late st Contact Info) Description 01/13/2021 Transcribed Document [facility] [place] Family Medicine [address] [place] [address] ProviderMacrina MD [address] [place], [place] [address] Social History Tobacco Use Types Packs/Day Years [...] Dae Salcedo RN - 01/13/2021 17:15 EDT documented in this encounter Plan of Treatment Not on file documented as of this encounter Visit Diagnoses Not on filedocumented in this encounter
--- OUTSIDE RECORDS SUMMARY | 2025-01-16 11:49 | XMS_ITS | Encounter Summary ---
Author Organization [facility] Address [address] [place] [address] Care Team Providers Care Outdoor Emergency Care Technician Name Role Phone Unavailable Primary Care Provider Unavailabl e Encounter Details Date Type Department Care Team (Late st Contact Info) Description 01/12/2021 Transcribed Document [facility] [place] [address] [place] [address] ProviderMacrina MD [address] [place] [address] Social History Tobacco Use Types [...] MD-CAR BASIC PCP: Robert Batista MD Primary Instrument Technician Apprentice: Arthur Gomez MD Subjective NAD Health Status [...] At risk for sleep apnea / IMO 18140308 / Confirmed Colorectal surgery / SNOMED CT 7957457713 / Confirmed Aortic valve stenosis / SNOMED CT 283246594 / Confirmed HTN - Hypertension / SNOMED CT 1720639062 / Confirmed At risk for violence / IMO 30276250 / Confirmed Hypertension / SNOMED CT 63938910 / Confirmed Hyperlipidemia / SNOMED CT 74136654 / Confirmed Chronic anxiety / SNOMED CT 609131803 / Confirmed GERD - Gastro-esophageal reflux disease / SNOMED CT 0862122973 / Confirmed Disorder of prostate / SNOMED CT 40047490 / Confirmed Back pain, chronic / SNOMED CT 359124446 / Confirmed Aortic stenosis, severe / SNOMED CT 7202533962 / Confirmed Arthritis of right knee / SNOMED CT 4577352403 / Confirmed H/O peripheral neuropathy / SNOMED CT 267111426 / Confirmed feet tingle all the time [...] 11.8 H 472 / L 29.6 \ [id number] -- 12/27/2020 06:39 CR Chest 1 Vw [...] s/p pericardiocentesis and surgical repair of LV Andrews. *PEA Arrest; CODE called 10 minutes to [...]
--- OUTSIDE RECORDS SUMMARY | 2025-01-16 11:49 | XMS_ITS | Encounter Summary ---
Author Organization [facility] Address [address] [place] [address] Care Team Providers Care Warranty Manager Name Role Phone Unavailable Primary Care Provider Unavailabl e Encounter Details Date Type Department Care Team (Late st Contact Info) Description 01/12/2021 Transcribed Document [facility] [place] Medicine [facility] [place] [address] ProviderMacrina MD [address], [place] [id number] Social History Tobacco Use Types Packs/Day Years [...] Author: PAVEL JONES PA Basic Information Mr. oJse Adorno is an 80-year-old male, who was [...] 1012. 01/02/21: POD#6 Intubated and sedated on Oetuyvec285shj/hr and Precedex .6mcg/kg/min. He is also on [...] 2L/NC TF 50ml/hr Continue P.T. Transfer to [facility] Pt will need rehab when clinically ready 01/11/21 POD#15 O2 91% 2L/NC TF 50ml/hr Continue P.T. Awaiting transfer to [facility] 01/12/2021 POD #16 Continues tube feedings, tolerating [...]
--- OUTSIDE RECORDS SUMMARY | 2025-01-16 11:49 | XMS_ITS | Encounter Summary ---
Author Organization [facility] Address [address] [place] [address] Care Team Providers Care Shell Grader Name Role Phone Unavailable Primary Care Provider Unavailabl e Encounter Details Date Type Department Care Team (Late st Contact Info) Description 01/14/2021 Transcribed Document [facility] [place] Family Medicine [address] [place] [address] ProviderMacrina MD [address] [place] [address] Social History Tobacco Use Types Packs/Day Years Used Date Smoking Tobacco: Never Assessed Sex and Gender Information Value Date Recorded Sex Assigned at Not on file Legal Sex Male 1:13 PM CDT Gender Identity Not on file Sexual Orientation Not on file documented as of this encounter Miscellaneous Notes * Cerner Conversion Note - Macrina ProviderMD - 01/14/2021 3:40 PM CDT On Going Discharge Planning Entered On: 01/14/2021 15:41 EDT Performed On: 01/14/2021 15:40 EDT by ASHLEY CHAIDEZ RN-Picker Tender HelperSpray Drier Operator Helper Progress Note Patient Offered Choice/Affiliations Explained : Yes List/Info Provided Pt/Fam/Support Person : Other: Acute Rehab Were Referrals Sent to Post Acute Providers : Yes Is the Patient Meeting Medical Necessity : Yes Physician Agreeable to Move Forward with D/C Plan? : Yes Did you Attend Multidisciplinary Rounds? : Yes ASHLEY CHAIDEZ RN-Picker Tender Helper - 01/14/2021 15:42 EDT Discharge Arrangements : Patient Post-Acute Information Patient Name: JOSE ADORNO Gender: Male : 38 Age: 80 Years No Post-Acute Placement(s) Listed No Post-Acute Service(s) Listed No [place] Referral(s) Listed ASHLEY CHAIDEZ RN-Picker Tender Helper - 01/14/2021 15:40 EDT Discharge Options Discussed with Patient : Acute rehabilitation, Discharge transportation ASHLEY CHAIDEZ RN-Picker Tender Helper - 01/14/2021 15:42 EDT Barriers to Discharge Identified : Clinical Condition of Patient, Follow-Up appointments needed Barriers to Discharge Unresolved : Clinical Condition of Patient ASHLEY CHAIDEZ RN-Picker Tender Helper - 01/14/2021 15:40 EDT Narrative Progress [...] with RWx modA. DCP: Referral made to [facility], patient's 1st choice, via [facility]. bao Barnes said her MD would accept patient but would like for his PEG to be placed prior to discharge. Patient has traditional Medicare so he will not need a preauth. Historical Progress Note : HD#15; ELOS 3; LRR; BOOST 6; POD#15 - ElecTAVR/LVentTear/Tamponade = 02=1L; YX=797; TF/Corpak 50cc; voice improving; working w/ST for dysphagia; plan for repeat instrumental in 1 wk; ongoing therapy; spouse to provide choicing for STR; on transfer out of [facility]. SOPHY RM Rn-Picker Tender Helper - 01/11/21 09:38:52 HD#14; ELOS 3; LRR; BOOST 6; POD#14 - ElecTAVR/LVentTear/Tamponade = 02=2L; BIPAP prn; Duonebs; Cefepime/Zosyn; FEES today; Cardiology managing Tacycardia; per LOS recommendation - pt referred to LTAC; likely DCP subacute rehab; anticipate transfer to floor soon. SOPHY RM, Rn-Picker Tender Helper - 01/10/21 08:19:07 HD#13; ELOS 3; LRR; BOOST 6; POD#13 - ElectiveTAVR/LVentTear/Tamponade - 02=2L; BIPAP prn for WOB/hs; Duonebs/IS/FVD encouraged; Patricio gtt; central line d/c 01/08/PICC placed; T=100; Maxipime; working with therapy - very weak; Mod-Max A x2 to EOB - not safe to stand; ST - failed/ongoing dysphagia tx; Corpak/TF; DCP rehab - improving. SOPHY RM Rn-Picker Tender Helper - 01/09/21 07:48:59 HD#12; ELOS 3; LRR; BOOST 6; POD #12 - Electiv TAVR/LVentTear/Cardiac Tamponade SOPHY RM Rn-Picker Tender Helper - 01/08/21 14:56:21 HD#12; ELOS 3; LRR; BOOST 6; POD #12 - Electiv TAVR/LVentTear/Cardiac Tamponade/Embolic Strokes w/ R side weakness; RA; IS/FVD encouraged; report pt with delerium/lethargy overnight - pulled out IV; PICC ordered today; R arm weakness; Corpak/TF - failed ST evaluation - improving; DCP Rehab; continue to follow SOPHY RM Rn-Picker Tender Helper - 01/08/21 14:58:32 HD#11; ELOS 3; MRR; BOOST 6; POD#11 - Elective TAVR/LVentTear/Cardiac Tamponade; 02=2L; Maxipime/Ancef; IV Bumex; working w/therapy and stood at side of bed; SOPHY RM, Rn-Picker Tender Helper - 01/07/21 14:34:53 HD#11; ELOS 3; MRR; BOOST 6; POD#11 - Elective TAVR/LVentTear/Cardiac Tamponade; 02=2L; Maxipime/Ancef; IV Bumex; working w/therapy and stood at side of bed; ST - ongoing rec for NPO r/t dysphagia - tx; instrumental 3-4 days; Corpak/TF; DCP anticipate rehab; initial referrals placed thru [facility] and list w/post acute star ratings provided to pt for choicing. SOPHY RM Rn-Picker Tender Helper - 01/07/21 14:36:37 HD#8; ELOS 3; [...] need therapy evaluations when extubated. SOPHY RM Rn-Picker Tender Helper - 01/04/21 15:16:12 HD#7; ELOS 3; LRR; BOOST 6; POD#7 - Elective TAVR/LVentTear/CardiacTamponade/Arrest - intubated fi02 40/peep 8; SBT x 2 hr; Fent/Precedex gtt; Corpak/TF; Humza CT in place; Neurology following - MRI diffuse scattered bilateral infarcts; pt w/improvement in movement of R side; PT/OT evaluations when extubated; DCP TBD - likely rehab. SOPHY RM Rn-Picker Tender Helper - 01/03/21 15:03:09 HD#6; ELOS 3; LRR; BOOST 6; POD #6 - Electiv TAVR/L Vent Tear/Cardiac Tamponode/Arrest - reintubated 01/01; fi02 40; Levo/Fent/Precedex gtt; wean sedation - on SBT 2hr TID; T=99.9; Dr. Navarro states during MDR that pt's spouse aware may need trach/peg; DCP TBD pending progress. SOPHY RM Rn-Picker Tender Helper - 01/02/21 14:55:12 HD#5; ELOS 3; LRR; BOOST 6; POD #5 - Elective TAVR/L Ventrial Tear/Cardiac Tamponode; extubated on 12/31 required reintubation today fi02 60/peep 8; Precedex/Fent gtt; Corpak/TF; IV Zosyn; CT draining; T=100; DCP TBD pending progress; will need therapy evals when appropriate. SOPHY RM Rn-Picker Tender Helper - 01/01/21 14:47:57 HD#4; ELOS 3; LRR; POD#4 - Electiv TAVR; L Ventrical Tear; intubated fi02 50; Cardene gtt; Corpak to be placed and TF initiated; SBT today; following commands; Head MRI ordered; possible extubation post MRI; no movement noted on R side; will need PT/OT evaluations when extubated; DCP pending progress - likely rehab. SOPHY MR, Rn-Picker Tender Helper - 12/31/20 14:58:43 DCP TBD - pending progress; OP Cardiac Rehab referral placed thru [facility]. SOPHY RM Rn-Picker Tender Helper - 12/28/20 12:42:03 ASHLEY CHAIDEZ RN-Picker Tender Helper - 01/14/2021 15:42 EDT documented in this encounter Plan of Treatment Not on file documented as of this encounter Visit Diagnoses Not on filedocumented in this encounter
--- OUTSIDE RECORDS SUMMARY | 2025-01-16 11:49 | XMS_ITS | Encounter Summary ---
Author Organization [facility] Address [address] [place] [address] Care Team Providers Care Nurseryperson Name Role Phone Unavailable Primary Care Provider Unavailabl e Encounter Details Date Type Department Care Team (Late st Contact Info) Description 01/14/2021 Transcribed Document [facility] [place] [address] [place] [address] ProviderMacrina MD [address] [place], [place] [id number] Social History Tobacco Use Types Packs/Day Years [...] On: 01/14/2021 17:00 EDT by Pavel Rizvi, Forest Aide-Student Nurse Chart Check Powerplans Initiated/Discontinued as Appropriate : Not applicable All Active Orders Reviewed : Yes Pavel Rizvi, Forest Aide-Student Nurse - 01/14/2021 15:03 EDT Electronically signed by Elmer [facility] Conversion Carpet Renovator Cerner at 11/10/2022 9:12 AM CDT documented in this encounter Plan of Treatment Not on file documented as of this encounter Visit Diagnoses Not on filedocumented in this encounter
--- OUTSIDE RECORDS SUMMARY | 2025-01-16 11:49 | XMS_ITS | Encounter Summary ---
Author Organization [facility] Address [address] [place] [address] Care Team Providers Care Pricing Intern Name Role Phone Unavailable Primary Care Provider Unavailabl e Encounter Details Date Type Department Care Team (Late st Contact Info) Description 01/13/2021 Transcribed Document [facility] [place] [facility] [place] [address] ProviderMacrina MD [address], [place] [id number] Social History Tobacco Use Types Packs/Day Years [...] 1012. 01/02/21: POD#6 Intubated and sedated on [id number]/hr and Precedex .6mcg/kg/min. He is also on [...] 2L/NC TF 50ml/hr Continue P.T. [facility] Pt will need rehab when clinically ready 01/11/21 POD#15 O2 91% 2L/NC TF 50ml/hr Continue P.T. Awaiting transfer to [facility] 01/12/2021 POD #16 Continues tube feedings, [...] Pre-Op Diagnosis, Medical. Electronically signed by Elmer [facility] Conversion Shingle Packer Cerner at 11/10/2022 9:13 AM CDT documented in this encounter Plan of Treatment Not on file documented as of this encounter Visit Diagnoses Not on filedocumented in this encounter
--- OUTSIDE RECORDS SUMMARY | 2025-01-16 11:49 | XMS_ITS | Encounter Summary ---
Author Organization [employer] [facility] Address [address] [place] [address] Care Team Providers Care Hat Model Name Role Phone Unavailable Primary Care Provider Unavailabl e Encounter Details Date Type Department Care Team (Late st Contact Info) Description 01/08/2021 Transcribed Document [facility] [place] [address] [place] [address] ProviderMacrina MD [address] [place] [address] Social History Tobacco Use Types [...] Regimen Comment : 01/08: high f/up. Per RECREATION FACILITY ATTENDANT notes, pt not ready for instrumental. TF [...] Continue Osmolite 1.5 @ 50ml/hr + 1 [id number] daily (provides 1710kcal, 83g PRO). If pt [...] 01/08/2021 11:40 EDT Electronically signed by Elmer [facility] Conversion Nocturnist Physician Cerner at 11/10/2022 9:07 AM CDT documented in this encounter Plan of Treatment Not on file documented as of this encounter Visit Diagnoses Not on filedocumented in this encounter
--- OUTSIDE RECORDS SUMMARY | 2025-01-16 11:49 | XMS_ITS | Encounter Summary ---
Author Organization [facility] In [facility] Address [address] [place] [address] Care Team Providers Care Bomb Squad Officer Name Role Phone Unavailable Primary Care Provider Unavailabl e Encounter Details Date Type Department Care Team (Late st Contact Info) Description 01/12/2021 Transcribed Document [facility] [place] Family Medicine [address] [place] [address] ProviderMacrina MD [address] [place], [place] [address] Social History Tobacco Use Types Packs/Day Years [...] EDT Performed On: 01/12/2021 17:00 EDT by Dea Salceod, RN Chart Check Powerplans Initiated/Discontinued as Appropriate : Yes All Active Orders Reviewed : Yes Dae Salcedo RN - 01/12/2021 17:14 EDT Electronically signed by Elmer [facility] Conversion Belly Dancer Cerner at 11/10/2022 9:31 AM CDT documented in this encounter Plan of Treatment Not on file documented as of this encounter Visit Diagnoses Not on filedocumented in this encounter
--- OUTSIDE RECORDS SUMMARY | 2025-01-16 11:49 | XMS_ITS | Encounter Summary ---
Author Organization [facility] Address [address] [place] [address] Care Team Providers Care Rough And Truing Machine Operator Name Role Phone Unavailable Primary Care Provider Unavailabl e Encounter Details Date Type Department Care Team (Late st Contact Info) Description 01/08/2021 Transcribed Document [facility] [place] [address] [place] [address] ProviderMacrina MD [address] [place], [place] [address] Social History Tobacco Use Types Packs/Day Years [...] CARE BEDSIDE NON-EXEMPT - 01/08/2021 15:46 EDT documented in this encounter Plan of Treatment Not on file documented as of this encounter Visit Diagnoses Not on filedocumented in this encounter
--- OUTSIDE RECORDS SUMMARY | 2025-01-16 11:49 | XMS_ITS | Encounter Summary ---
Author Organization [facility] [employer] [facility] Address [address] [place] [address] Care Team Providers Care Social Staff Worker Name Role Phone Unavailable Primary Care Provider Unavailabl e Encounter Details Date Type Department Care Team (Late st Contact Info) Description 01/08/2021 Transcribed Document [facility] [place] [address] [place] [address] ProviderMacrina MD [address] [place] [address] Social History Tobacco Use Types [...] On: 01/08/2021 14:55 EDT by SOPHY RM Rn-Commercial ReporterManager Roofing Progress Note Discharge Arrangements : Patient Post-Acute [...] Meeting Medical Necessity : Yes SOPHY RM Rn-Commercial Reporter - 01/08/2021 14:55 EDT Narrative Progress Note Narrative Progress Note : HD#12; ELOS 3; LRR; BOOST 6; POD #12 - Electiv TAVR/LVentTear/Cardiac Tamponade/Embolic Strokes w/ R side weakness; RA; IS/FVD encouraged; report pt with delerium/lethargy overnight - pulled out IV; PICC ordered today; R arm weakness; Corpak/TF - failed ST evaluation - improving; DCP Rehab; continue to follow SOPHY RM Rn-Commercial Reporter - 01/08/2021 14:56 EDT Historical Progress Note : HD#11; ELOS 3; MRR; BOOST 6; POD#11 - Elective TAVR/LVentTear/Cardiac Tamponade; 02=2L; Maxipime/Ancef; IV Bumex; working w/therapy and stood at side of bed; SOPHY RM Rn-Commercial Reporter - 01/07/21 14:34:53 HD#11; ELOS 3; MRR; BOOST 6; POD#11 - Elective TAVR/LVentTear/Cardiac Tamponade; 02=2L; Maxipime/Ancef; IV Bumex; working w/therapy and stood at side of bed; ST - ongoing rec for NPO r/t dysphagia - tx; instrumental 3-4 days; Corpak/TF; DCP anticipate rehab; [facility] and list w/post acute star ratings provided to pt for choicing. SOPHY RM Rn-Commercial Reporter - 01/07/21 14:36:37 HD#8; ELOS 3; LRR; BOOST 6; POD#8 - Elec TAVR/LVentTear/Cardiac Tamponade - intubated fi02 100; awake/calm/following commands; bronchoscopy scheduled today; SBT; T=101.2; MRI - diffuse scattered bilateral infarcts; Dr. Navarro states during MDR that if pt is unable to successfully wean over weekend will need trach/peg consult on Thursday; continue to follow; will need therapy evaluations when extubated. SOPHY RM Rn-Commercial Reporter - 01/04/21 15:16:12 HD#7; ELOS 3; LRR; BOOST 6; POD#7 - Elective TAVR/LVentTear/CardiacTamponade/Arrest - intubated fi02 40/peep 8; SBT x 2 hr; Fent/Precedex gtt; Corpak/TF; Humza CT in place; Neurology following - MRI diffuse scattered bilateral infarcts; pt w/improvement in movement of R side; PT/OT evaluations when extubated; DCP TBD - likely rehab. SOPHY RM Rn-Commercial Reporter - 01/03/21 15:03:09 HD#6; ELOS 3; LRR; BOOST 6; POD #6 - Electiv TAVR/L Vent Tear/Cardiac Tamponode/Arrest - reintubated 01/01; fi02 40; Levo/Fent/Precedex gtt; wean sedation - on SBT 2hr TID; T=99.9; Dr. Navarro states during MDR that pt's spouse aware may need trach/peg; DCP TBD pending progress. SOPHY RM Rn-Commercial Reporter - 01/02/21 14:55:12 HD#5; ELOS 3; LRR; BOOST 6; POD #5 - Elective TAVR/L Ventrial Tear/Cardiac Tamponode; extubated on 12/31 required reintubation today fi02 60/peep 8; Precedex/Fent gtt; Corpak/TF; IV Zosyn; CT draining; T=100; DCP TBD pending progress; will need therapy evals when appropriate. SOPHY RM Rn-Commercial Reporter - 01/01/21 14:47:57 HD#4; ELOS 3; LRR; POD#4 - Electiv TAVR; L Ventrical Tear; intubated fi02 50; Cardene gtt; Corpak to be placed and TF initiated; SBT today; following commands; Head MRI ordered; possible extubation post MRI; no movement noted on R side; will need PT/OT evaluations when extubated; DCP pending progress - likely rehab. SOPHY RM Rn-Commercial Reporter - 12/31/20 14:58:43 DCP TBD - pending progress; OP Cardiac Rehab referral placed thru [facility]. SOPHY RM Rn-Commercial Reporter - 12/28/20 12:42:03 SOPHY RM Rn-Commercial Reporter - 01/08/2021 14:55 EDT documented in this encounter Plan of Treatment Not on file documented as of this encounter Visit Diagnoses Not on filedocumented in this encounter
--- OUTSIDE RECORDS SUMMARY | 2025-01-16 11:49 | XMS_ITS | Encounter Summary ---
Author Organization [facility] Address [address] [place] [address] Care Team Providers Care Want Ad Supervisor Name Role Phone Unavailable Primary Care Provider Unavailabl e Encounter Details Date Type Department Care Team (Late st Contact Info) Description 01/14/2021 Transcribed Document [facility] [place] Family Medicine [facility] [place] [address] ProviderMacrina MD [address], [place] [id number] Social History Tobacco Use Types Packs/Day Years [...] 1012. 01/02/21: POD#6 Intubated and sedated on [id number]/hr and Precedex .6mcg/kg/min. He is also on [...] 2L/NC TF 50ml/hr Continue P.T. Transfer to [facility] Pt will need rehab when clinically ready 01/11/21 POD#15 O2 91% 2L/NC TF 50ml/hr Continue P.T. Awaiting transfer to [facility] 01/12/2021 POD #16 Continues tube feedings, tolerating Steady progress 01/13/2021 POD #17 ALINA Bebe Will need rehab placement 01/14/2021 POD #18 Patient still not cleared for PO [facility] has accepted the patient, but he needs a PEG. Will consult general surgery for PEG placement prior to transfer to [facility] Diagnosis Anxiety - Pre-Op Diagnosis, Medical. [...]
--- OUTSIDE RECORDS SUMMARY | 2025-01-16 11:49 | XMS_ITS | Encounter Summary ---
Author Organization [employer] [facility] Address [address] [place] [address] Care Team Providers Care Research Program Intern Name Role Phone Unavailable Primary Care Provider Unavailabl e Encounter Details Date Type Department Care Team (Late st Contact Info) Description 01/08/2021 Transcribed Document [facility] Cardiology [address] [place] [address] Danyelle Gomez MD [address] [facility] [address] [place] [id number] Social History Tobacco Use Types Packs/Day Years [...] Basic Information PCP: Robert Batista MD Primary E Business Project Manager: Danyelle Gomez MD Subjective Resting in [...] (Current Encounter/Past 24 Hours) ProBNP 5653 pg/mL AK 01/07/2021 05:56 Radiology Results (Last 48 hours) [id number] -- 12/27/2020 06:39 CR Chest 1 Vw [...] s/p pericardiocentesis and surgical repair of LV [place]. PEA Arrest; CODE called 10 minutes to [...]
--- NOTE | 2025-01-16 12:21 | A.OFFVIS_ITS ---
[facility] Disclaimer: The information contained in this section may have been updated after the patient was seen, as this information can be updated by other users. 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 OP follow-up at [facility] Dehydration Tremor Stable Peripheral neuropathy Rectal stricture Chest pain Stroke Colon cancer Left hand paresthesia Left hand pain Chronic pain of right knee Stricture of sigmoid colon CVA (cerebrovascular accident) HTN (hypertension) Surgical History H/O hernia repair History of cataract surgery History of open heart surgery History of aortic valve replacement History of heart surgery History of cholecystectomy History of colon resection History of colonoscopy Family History Other Cancer Heart attack Social History Smoking Status: Never smoker second hand exposure: No alcohol intake: former substance use type: denies use current occupational status: retired and other Travel in the last 8 weeks?: [facility] adopted: No caregiver/support person: Yes foster care: No household members: spouse housing: house lives independently: No marital status: 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 He rates it a 7 out of 10. Patient denies any changes of the pain from our last visit. He states that he feels like it is still the same issue however the last injection has worn off. Patient does state it is interfering with his ability perform activities of daily living such as cooking and cleaning. Patient does make mention that from our last visit of seeing him he ended up having a fall where his blood pressure got low when he got dizzy causing him to fracture his right hip. He ended up having to have surgery on that hip with a nail placed. He states it is not giving him any problems. He states he will still occasionally have where he gets dizzy and lightheaded. Patient is interested in proceeding forward with additional injections. His Arden has been reviewed and is appropriate. Review of Systems: General: No recent weight changes, no fever, no sleep disturbances Respiratory: No cough, no shortness of air, no recurring pulmonary infections Cardiovascular/peripheral vascular: No chest pain, no palpitations, no edema, no shortness of breath Gastrointestinal: No new onset incontinence, normal bowel movements reported Genitourinary: No new onset incontinence Musculoskeletal: Left buttocks pain Psychiatric: [Normal mood/affect] Neurological: [Denies weakness in extremities], [denies balance issues] Pain at rest (0-10 scale): 7 Objective Objective:: Physical Exam: General: Alert and oriented x3, no acute distress, pleasant and cooperative Lungs: Respirations even and unlabored, symmetrical chest expansion Eyes: PERRL Musculoskeletal: Flexion and extension of lumbar [spine] somewhat guarded secondary to pain, [antalgic gait noted] point tenderness along the left piriformis muscle Neurological: Speech clear, no gross sensory deficit Has patient had previous pain injection?: No Conservative treatment options previously tried: Home exercise plan Length of treatment: Longer than 12 weeks Meds Home Medications and Allergies Home Medications ?Medication ?Instructions ?Recorded ?Confirmed ?Type lisinopril 10 mg tablet 10 mg PO DAILY 02/20/2012/25 History omeprazole magnesium 20 mg 20 mg PO DAILY 03/03/2407/20 History tablet,delayed release duloxetine 60 mg capsule,delayed 60 mg PO BID #60 caps 08/26/24 01/05/25 Rx release aspirin 81 mg tablet,delayed 81 mg PO BID 26 days #52 tabs 10/07/24 01/05/25 Rx release atorvastatin 40 mg tablet 20 mg (1/2 x 40 mg) PO HS 30 days 10/07/24 01/05/25 Rx #15 tabs finasteride 5 mg tablet 5 mg PO DAILY 30 days #30 ta bs 10/07/24 01/05/25 Rx methocarbamol 500 mg tablet 500 mg PO BIDP PRN back, h ip pain 10/07/24 01/05/25 Rx #30 tabs polyethylene glycol 3350 17 17 g PO DAILY #510 grams 0 10/07/24 01/05/25 Rx gram/dose oral powder (Miralax) tamsulosin 0.4 mg capsule (Flomax) 0.8 mg (2 x 0.4 mg) PO DAILY 10/07/24 01/05/25 Rx days #90 caps amlodipine 2.5 mg tablet 5 mg (2 x 2.5 mg) PO DAILY 3 0 days 10/19/24 01/05/25 Rx #0 tabs gabapentin 300 mg capsule 600 mg (2 x 300 mg) PO DAILY 30 10/19/24 01/05/25 Rx days #0 caps gabapentin 300 mg capsule 600 mg (2 x 300 mg) PO HS 30 days 10/19/24 01/05/25 Rx #0 caps New Prescriptions to Start Prescriptions: Allergies Allergy/AdvReac Type Severity Reaction Status Date / Time No Known Allergies Allergy Verified 01/05/25 10:10 Assessment and Plan *Assessment and plan (1) Myofascial pain on left side: Status: Resolved Category: Medical Code(s): M79.18 - Myalgia, other site (2) Piriformis syndrome of left side: Status: Resolved Category: Medical Code(s): G57.02 - Lesion of sciatic nerve, left lower limb Plan Patient is experiencing worsening pain in and around his left buttocks with point tenderness along the left piriformis muscle. I did discuss with patient that I do believe he would benefit from repeat left piriformis injection. Patient has had this pain for longer than 6 months. Patient has tried and failed conservative therapy including oral medications, heat and ice, topicals, at home stretching exercise for longer than 12 weeks. Patient does typically get 50% improvement for longer than 3 months with these injections. He has not had this injection since July 2024. We did discuss the possibility that he may benefit from physical therapy or home health and I did counseling center manager him that he just has to let me know and I will send this order in. Patient will be scheduled for a left piriformis injection without fluoroscopic or ultrasound guidance. Patient at time of leaving our office ended up having significant dizziness where we did have to get him a wheelchair to prevent him to fall. We did recheck his blood pressure and it was 75/40. We counseled him that it is recommended he go to the ER for additional evaluation. I did discuss with him that he needs to make a follow-up appointment with his primary care to see about also altering his blood pressure medication if it continues to stay low. Patient acknowledges understanding agrees with this plan of care. Patient was taken to the ER via wheelchair for evaluation leaving our office. Patient has been instructed to contact the clinic with any concerns before the next appointment. Dr. Jimenez has reviewed this note and agrees with this plan of care. This note was dictated using voice recognition software and make contain errors or omissions. All injections are used with Lidocaine, Bupivacaine and dexamethasone. Occasionally urine drug screen is needed to verify patient's compliance with our office pain contract. This is ordered based off specific treatments related to chronic pain with the potential to abuse certain medications.
[2025-01-16 14:17] VITALS: BP 101/69; PULSE 74; RESP 12; O2SAT 96; BMI 20.3
--- NOTE | 2025-01-17 09:59 | PC.NURSE ---
late entry: at the end of pts visit yesterday 01/16/25 at approx 1210, I heard provider talking to pt at the main desk of clinic. I heard provider asking pt if he was okay. Came out of my office grabbed wheelchair and placed in behind pt to where he could just sit down. Provider and other staff member where helping pt stay in standing position, pt did also have ahold of his walker. Pt was assisted to sitting position in the wheelchair, was difficult to get pt to follow commands during this time period. P Bp checked: 75/40 pt stated he felt like it his blood pressure dropped. Pt reports pt takes 3 bp medications in the morning. Reports pt fell yesterday and the spells of dizziness have been happening at home also. Stated to pt and with him getting dizzy and bp dropping low like it did he is at risk for falls/injury he should be evaluated in the ER. Approx 3 mins after first bp check pt states I think I feel better can you check my blood pressure again. I did, bp reading was 95/54. Pt states can I just go on home? Stated to pt our recommendation would be for pt to be evaluated in the ER however we can not make him stay. Pt verbalized understanding. Stated to his he would go to the ER to get checked out. Pt taken to ER via wheelchair per myself. Report of incident given to ER staff.
== END 2025-01-16 23:59 | disposition home or self-care (01) ==
LOC: SC.PAIN 11:42
PROVIDERS: PCP Family Medicine; Visit Provider Nurse Practitioner Family
DX: G57.02 Lesion of sciatic nerve, left lower limb (principal)
CPT/HCPCS: 99212; G0463

== ENCOUNTER 2025-01-16 12:17 | Observation (INO) | payer MEDICARE, SELFPAY ==
--- OUTSIDE RECORDS SUMMARY | 2018-07-15 07:46 | XMS_ITS | Continuity of Care Document ---
Author Name [facility] Organization [facility] Care Team Providers Care Machine Sneller Name Role Phone [facility] Unavailable Unavailable Problems Combined list of problems from Department of [place] and [facility] facilities. It does not include entries that were removed or entered in error. Problem Status Onset Date Problem Type Date of Resolution Comments Source Benign hypertension Active Condition [facility] BPH - Benign prostatic hypertrophy Active Condition [facility] Carcinoma of colon Active Condition N 2015 Entered By: MELISSA AGUILLON Comment: HX OF COLON RESECTION [facility] Hyperlipidemia Active [place] [facility] Medications Combined list of outpatient medications from Department of [place] and [facility] facilities.Medications provided include 1) outpatient medications from the last 15 months, and 2) patient-reported medications. Medication Details Route Status Patient Instructions Prescription Expires Prescription Number Last Dispense Date Ordering Provider Order Date Order Qty Source ATORVASTATI N CA 40MG TAB TAKE ONE-HALF TABLET BY MOUTH DAILY ORAL ACTIVE MIRACLE CARSON IN 2017 [place] [facility] FISH OIL 1000MG (500MG DHA/EPA) CAP,ORAL TAKE 2 CAPSULES BY MOUTH DAILY ORAL ACTIVE KAMARI AGUILLON 2015 [place] [facility] LISINOPRIL 20MG TAB TAKE ONE-HALF TABLET BY MOUTH TWICE A DAY ORAL ACTIVE MIRACLE CARSON IN C 2017 [place] [facility] METOPROLOL SUCCINATE 25MG TAB,SA TAKE ONE-HALF TABLET BY MOUTH DAILY ORAL ACTIVE MIRACLE CARSON IN 2017 [place] [facility] Immunizations Combined list of available immunizations from the Department of [place] and [facility] facilities. Immunization Series Date Given Administered By Site Reaction Lot Number CVX Code Drug Clinical Pharmacy Technician Status Comments Source TDAP (HISTORICAL) 2013 115 complet ed [place] [facility] Social History Combined list of available smoking, tobacco, and other social history from Department of Defense and Veterans Affairs facilities. Social History Type Response Date Comment [facility] e Tobacco smoking status [facility] VA-TOBACCO NEVER USED 07/15/2018 [facility] History of tobacco use V9 LIFETIME NON-USER OF TOBACCO 06/26/2017 [facility] History of tobacco use V9 LIFETIME NON-USER OF TOBACCO 06/05/2016 [facility] History of tobacco use V9 LIFETIME NON-USER OF TOBACCO 05/30/2015 [facility]
[2025-01-16] VITALS (12 sets, daily range): BP systolic 64–129; BP diastolic 29–73; PULSE 52–66; RESP 11–20; TEMP 36.4–36.8; O2SAT 95–98; BMI 20.3; BMI 19.9
--- NOTE | 2025-01-16 12:37 | XR_ITS ---
FINAL REPORT TECHNIQUE: Single view chest CLINICAL HISTORY: syncope COMPARISON: 02/11/2022 FINDINGS: A single view of the chest was obtained. The heart and mediastinum are within normal limits. Patient is status post aortic valve repair. The lungs are clear. There is no pneumothorax. IMPRESSION: No acute cardiopulmonary process. Reviewed, Interpreted and Dictated by Lily Portillo MD Transcribed by Jennifer Tinajero Authenticated and [facility]
--- OUTSIDE RECORDS SUMMARY | 2025-01-16 12:43 | XMS_ITS | Encounter Summary ---
Author Organization [employer] [facility] Address [address] [place] [address] Care Team Providers Care Induction Machine Setter Name Role Phone Unavailable Primary Care Provider Unavailabl e Encounter Details Date Type Department Care Team (Late st Contact Info) Description 01/04/2021 Transcribed Document [facility] [place] [address] [place] [address] ProviderMacrina MD [address] [place] [address] Social History Tobacco Use Types [...] Time of Assessment : 01/04/2021 9:00 EDT [facility] Clinician Administering Scale : JAMES Inman [...]
--- OUTSIDE RECORDS SUMMARY | 2025-01-16 12:43 | XMS_ITS | Encounter Summary ---
Author Organization [facility] Address [address] [place] [address] Care Team Providers Care Hydro Plant Operator Name Role Phone Unavailable Primary Care Provider Unavailabl e Encounter Details Date Type Department Care Team (Late st Contact Info) Description 01/15/2021 Transcribed Document [facility] [place] [facility] [place] [address] ProviderMacrina MD [address] [place] [address] Social History Tobacco Use Types [...] 0.5 MCG/KG/. Awake and following commands, positive grad intern in bilateral hands. MRI brain yesterday revealed [...] 180s. 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 but weaker on [...] Problems Aortic valve stenosis / SNOMED CT 544312867 / Confirmed Arthritis of right knee / SNOMED CT 4287214816 / Confirmed At risk for sleep apnea / IMO 66799684 / Confirmed At risk for violence / IMO 96220106 / Confirmed Chronic anxiety / SNOMED CT 898160772 / Confirmed Back pain, chronic / SNOMED CT 479660626 / Confirmed Colorectal surgery / SNOMED CT 5369412533 / Confirmed Disorder of prostate / SNOMED CT 92129233 / Confirmed GERD - Gastro-esophageal reflux disease / SNOMED CT 4126907675 / Confirmed H/O peripheral neuropathy / SNOMED CT 656455101 / Confirmed feet tingle all the time HTN - Hypertension / SNOMED CT 8588342925 / Confirmed Hyperlipidemia / SNOMED CT 73318502 / Confirmed Hypertension / SNOMED CT 00214643 / Confirmed Aortic stenosis, severe / SNOMED CT 1218421839 / Confirmed Resolved: Cancer of colon / SNOMED CT 8933749732, Active Problems (14) Aortic stenosis, severe Aortic [...] 24 Hours) Radiology Results (Last 48 hours) [id number] -- 12/27/2020 06:39 CR Chest 1 Vw [...] benefit from inpatient rehab. Recommend transfer to [facility] for inpatient rehab. FULL CODE Prognosis [...]
--- OUTSIDE RECORDS SUMMARY | 2025-01-16 12:43 | XMS_ITS | Encounter Summary ---
Author Organization [facility] Address [address] [place] [address] Care Team Providers Care Outside Physical Damage Appraiser Name Role Phone Unavailable Primary Care Provider Unavailabl e Encounter Details Date Type Department Care Team (Late st Contact Info) Description 01/16/2021 Transcribed Document [facility] [place] Family Medicine [address] [place] [address] ProviderMacrina MD [address] [place] [address] Social History Tobacco Use Types [...] APRN BASIC PCP: Robert Batista MD Primary Adult Remedial Education Instructor: Arthur Gomez MD Subjective Resting in bed. [...] 32.9 \ Radiology Results (Last 48 hours) [id number] -- 12/27/2020 06:39 CR Chest 1 Vw [...] s/p pericardiocentesis and surgical repair of LV [place]. *PEA Arrest; CODE called 10 minutes to [...]
--- OUTSIDE RECORDS SUMMARY | 2025-01-16 12:43 | XMS_ITS | Encounter Summary ---
Author Organization [facility] Address [address] [place] [address] Care Team Providers Care Molten Iron Pourer Name Role Phone Unavailable Primary Care Provider Unavailabl e Encounter Details Date Type Department Care Team (Late st Contact Info) Description 01/16/2021 Transcribed Document [facility] [place] [facility] [place] [address] ProviderMacrina MD [address] [place] [address] Social History Tobacco Use Types [...] 0.5 MCG/KG/. Awake and following commands, positive auto tire recapper in bilateral hands. MRI brain yesterday revealed [...] 180s. 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 Recommend transfer to [facility] for inpatient rehab. Pulmonary team will [...]
--- OUTSIDE RECORDS SUMMARY | 2025-01-16 12:43 | XMS_ITS | Encounter Summary ---
Author Organization [facility] Address [address] [place] [address] Care Team Providers Care Resort Housekeeper Name Role Phone Unavailable Primary Care Provider Unavailabl e Encounter Details Date Type Department Care Team (Late st Contact Info) Description 12/31/2020 Transcribed Document [facility] [place] Medicine [address] [place] [address] ProviderMacrina MD [address] [place], [place] [address] Social History Tobacco Use Types Packs/Day Years [...]
--- OUTSIDE RECORDS SUMMARY | 2025-01-16 12:43 | XMS_ITS | Encounter Summary ---
Author Organization [facility] Address [address] [place] [address] Care Team Providers Care General Office Assistant Name Role Phone Unavailable Primary Care Provider Unavailabl e Encounter Details Date Type Department Care Team (Late st Contact Info) Description 01/09/2021 Transcribed Document [facility] [place] [address] ProviderMacrina MD [address], [place] [id number] Social History Tobacco Use Types Packs/Day Years [...] 1012. 01/02/21: POD#6 Intubated and sedated on [id number]/hr and Precedex .6mcg/kg/min. He is also on [...]
--- OUTSIDE RECORDS SUMMARY | 2025-01-16 12:43 | XMS_ITS | Encounter Summary ---
Author Organization [facility] In [facility] Address [address] [place] [address] Care Team Providers Care Rug Washer Name Role Phone Unavailable Primary Care Provider Unavailabl e Encounter Details Date Type Department Care Team (Late st Contact Info) Description 01/16/2021 Transcribed Document [facility] [place] [address] [place] [address] ProviderMacrina MD [address] [place], [place] [address] Social History Tobacco Use Types Packs/Day Years [...] On: 01/16/2021 17:00 EDT by Pavel Rizvi, Floorhand-Student Nurse Chart Check Powerplans Initiated/Discontinued as Appropriate : Not applicable All Active Orders Reviewed : Yes Pavel Rizvi, Floorhand-Student Nurse - 01/16/2021 15:02 EDT Electronically signed by [facility] Conversion Boom Boss Cerner at 11/10/2022 9:04 AM CDT documented in this encounter Plan of Treatment Not on file documented as of this encounter Visit Diagnoses Not on filedocumented in this encounter
--- OUTSIDE RECORDS SUMMARY | 2025-01-16 12:43 | XMS_ITS | Encounter Summary ---
Author Organization [facility] Address [address] [place] [address] Care Team Providers Care Swimming Pool Installer And Servicer Name Role Phone Unavailable Primary Care Provider Unavailabl e Encounter Details Date Type Department Care Team (Late st Contact Info) Description 01/10/2021 Transcribed Document [facility] [place] [address] [place] [address] ProviderMacrina MD [address] [place], [place] [id number] Social History Tobacco Use Types Packs/Day Years [...] On: 01/10/2021 8:17 EDT by SOPHY RM Rn-Machine IcerConcrete Inspector Progress Note Discharge Arrangements : Patient Post-Acute [...] : Clinical Condition of Patient SOPHY RM Rn-Machine Icer - 01/10/2021 8:17 EDT Narrative Progress Note [...] Corpak/TF; DCP rehab - improving. SOPHY RM Rn-Machine Icer - 01/09/21 07:48:59 HD#12; ELOS 3; LRR; BOOST 6; POD #12 - Electiv TAVR/LVentTear/Cardiac Tamponade SOPHY RM, Rn-Machine Icer - 01/08/21 14:56:21 HD#12; ELOS 3; LRR; BOOST 6; POD #12 - Electiv TAVR/LVentTear/Cardiac Tamponade/Embolic Strokes w/ R side weakness; RA; IS/FVD encouraged; report pt with delerium/lethargy overnight - pulled out IV; PICC ordered today; R arm weakness; Corpak/TF - failed ST evaluation - improving; DCP Rehab; continue to follow SOPHY RM, Rn-Machine Icer - 01/08/21 14:58:32 HD#11; ELOS 3; MRR; BOOST 6; POD#11 - Elective TAVR/LVentTear/Cardiac Tamponade; 02=2L; Maxipime/Ancef; IV Bumex; working w/therapy and stood at side of bed; SOPHY RM, Rn-Machine Icer - 01/07/21 14:34:53 HD#11; ELOS 3; MRR; BOOST 6; POD#11 - Elective TAVR/LVentTear/Cardiac Tamponade; 02=2L; Maxipime/Ancef; IV Bumex; working w/therapy and stood at side of bed; ST - ongoing rec for NPO r/t dysphagia - tx; instrumental 3-4 days; Corpak/TF; DCP anticipate rehab; initial referrals placed thru [facility] and list w/post acute star ratings provided to pt for choicing. SOPHY RM Rn-Machine Icer - 01/07/21 14:36:37 HD#8; ELOS 3; LRR; BOOST 6; POD#8 - Elec TAVR/LVentTear/Cardiac Tamponade - intubated fi02 100; awake/calm/following commands; bronchoscopy scheduled today; SBT; T=101.2; MRI - diffuse scattered bilateral infarcts; Dr. Navarro states during MDR that if pt is unable to successfully wean over weekend will need trach/peg consult on Thursday; continue to follow; will need therapy evaluations when extubated. SOPHY RM Rn-Machine Icer - 01/04/21 15:16:12 HD#7; ELOS 3; LRR; BOOST 6; POD#7 - Elective TAVR/LVentTear/CardiacTamponade/Arrest - intubated fi02 40/peep 8; SBT x 2 hr; Fent/Precedex gtt; Corpak/TF; Humza CT in place; Neurology following - MRI diffuse scattered bilateral infarcts; pt w/improvement in movement of R side; PT/OT evaluations when extubated; DCP TBD - likely rehab. SOPHY RM Rn-Machine Icer - 01/03/21 15:03:09 HD#6; ELOS 3; LRR; BOOST 6; POD #6 - Electiv TAVR/L Vent Tear/Cardiac Tamponode/Arrest - reintubated 01/01; fi02 40; Levo/Fent/Precedex gtt; wean sedation - on SBT 2hr TID; T=99.9; Dr. Navarro states during MDR that pt's spouse aware may need trach/peg; DCP TBD pending progress. SOPHY RM, Rn-Machine Icer - 01/02/21 14:55:12 HD#5; ELOS 3; LRR; BOOST 6; POD #5 - Elective TAVR/L Ventrial Tear/Cardiac Tamponode; extubated on 12/31 required reintubation today fi02 60/peep 8; Precedex/Fent gtt; Corpak/TF; IV Zosyn; CT draining; T=100; DCP TBD pending progress; will need therapy evals when appropriate. SOPHY RM Rn-Machine Icer - 01/01/21 14:47:57 HD#4; ELOS 3; LRR; POD#4 - Electiv TAVR; L Ventrical Tear; intubated fi02 50; Cardene gtt; Corpak to be placed and TF initiated; SBT today; following commands; Head MRI ordered; possible extubation post MRI; no movement noted on R side; will need PT/OT evaluations when extubated; DCP pending progress - likely rehab. SOPHY RM Rn-Machine Icer - 12/31/20 14:58:43 DCP TBD - pending progress; OP Cardiac Rehab referral placed thru [facility]. SOPHY RM Rn-Machine Icer - 12/28/20 12:42:03 SOPHY RM Rn-Machine Icer - 01/10/2021 8:17 EDT documented in this encounter Plan of Treatment Not on file documented as of this encounter Visit Diagnoses Not on filedocumented in this encounter
--- OUTSIDE RECORDS SUMMARY | 2025-01-16 12:43 | XMS_ITS | Encounter Summary ---
Author Organization [employer] [facility] Address [address] [place] [address] Care Team Providers Care Horizontal Boring Mill Operator Name Role Phone Unavailable Primary Care Provider Unavailabl e Encounter Details Date Type Department Care Team (Late st Contact Info) Description 12/31/2020 Transcribed Document [address] [id number] Abby Rodrigues MD [address] [place] [address] Social History Tobacco Use Types Packs/Day Years [...] Basic Information PCP: Robert Batista MD Primary Boring Machine Set Up Operator Jig: Arthur Gomez MD Subjective Patient seen and [...] 25.8 \ Radiology Results (Last 48 hours) [id number] -- 12/27/2020 06:39 CT Chest WO (12/29/2020 [...] s/p pericardiocentesis and surgical repain of LV [place]. PEA Arrest; CODE called 10 minutes to [...]
--- OUTSIDE RECORDS SUMMARY | 2025-01-16 12:43 | XMS_ITS | Encounter Summary ---
Author Organization [facility] [facility] Address [address] [place] [address] Care Team Providers Care Director Embalmer Name Role Phone Unavailable Primary Care Provider Unavailabl e Encounter Details Date Type Department Care Team (Late st Contact Info) Description 12/31/2020 Transcribed Document [facility] [place] [address] [place] [address] ProviderMacrina MD [address] [place] [address] Social History Tobacco Use Types [...] Source : Measured Height Entry Format : [place] Height, Feet : 0 ft Height, Inches [...]
--- OUTSIDE RECORDS SUMMARY | 2025-01-16 12:43 | XMS_ITS | Encounter Summary ---
Author Organization [employer] [facility] Address [address] [place] [address] Care Team Providers Care Painter Ski Edge Name Role Phone Unavailable Primary Care Provider Unavailabl e Encounter Details Date Type Department Care Team (Late st Contact Info) Description 01/04/2021 Transcribed Document [facility] [place] Family Medicine [address] [place] [address] ProviderMacrina MD [address] [place] [address] Social History Tobacco Use Types [...] Continue Osmolite 1.5 @ 50ml/hr + 1 [id number] daily (provides 1710kcal, 83g PRO). FW per MD. Goal: meet est needs 2. Monitor elytes and replace prn Goal: wnls 3. Obtain wt 2x weekly goal: avoid sig wt changes 4. Monitor bowel fxn and adjust bowel regimen prn goal: +BM Risk: High Nutrition Care Level : High Tamy Wolff Dietitian - 01/04/2021 12:18 EDT Electronically signed by [facility] Conversion Careers Adviser Cerner at 11/10/2022 9:17 AM CDT documented in this encounter Plan of Treatment Not on file documented as of this encounter Visit Diagnoses Not on filedocumented in this encounter
--- OUTSIDE RECORDS SUMMARY | 2025-01-16 12:43 | XMS_ITS | Encounter Summary ---
Author Organization [facility] Address [address] [place] [address] Care Team Providers Care Laboratory Director Name Role Phone Unavailable Primary Care Provider Unavailabl e Encounter Details Date Type Department Care Team (Late st Contact Info) Description 01/10/2021 Transcribed Document [facility] [place] [address] [place] [address] ProviderMacrina MD [address] [place], [place] [address] Social History Tobacco Use Types Packs/Day Years [...]
--- OUTSIDE RECORDS SUMMARY | 2025-01-16 12:43 | XMS_ITS | Encounter Summary ---
Author Organization [employer] [facility] Address [address] [place] [address] Care Team Providers Care Dock Superintendent Name Role Phone Unavailable Primary Care Provider Unavailabl e Encounter Details Date Type Department Care Team (Late st Contact Info) Description 01/04/2021 Transcribed Document [facility] [place] Family Medicine [address] [place] [address] ProviderMacrina MD [address] [place] [address] Social History Tobacco Use Types [...] see as time permits over the weekend. Electronically signed by Olinda Payne Conversion Multi Operation Forming Machine Setter Cerner at 11/10/2022 9:27 AM CDT documented in this encounter Plan of Treatment Not on file documented as of this encounter Visit Diagnoses Not on filedocumented in this encounter
--- OUTSIDE RECORDS SUMMARY | 2025-01-16 12:43 | XMS_ITS | Encounter Summary ---
Author Organization [facility] [employer] [facility] Address [address] [place] [address] Care Team Providers Care Student Dean Name Role Phone Unavailable Primary Care Provider Unavailabl e Encounter Details Date Type Department Care Team (Late st Contact Info) Description 12/31/2020 Transcribed Document [facility] [place] Family Medicine [address] [place] [address] ProviderMacrina MD [address], [place] [id number] Social History Tobacco Use Types Packs/Day Years [...] On: 12/31/2020 14:55 EDT by SOPHY RM Rn-Hand Tube BenderSound Recordist Progress Note Discharge Arrangements : Patient Post-Acute [...] Meeting Medical Necessity : Yes SOPHY RM Rn-Hand Tube Bender - 12/31/2020 14:55 EDT Narrative Progress Note [...] progress; OP Cardiac Rehab referral placed thru [facility]. SOPHY RM, Rn-Hand Tube Bender - 12/28/20 12:42:03 SOPHY RM Rn-Hand Tube Bender - 12/31/2020 14:55 EDT documented in this encounter Plan of Treatment Not on file documented as of this encounter Visit Diagnoses Not on filedocumented in this encounter
--- OUTSIDE RECORDS SUMMARY | 2025-01-16 12:43 | XMS_ITS | Encounter Summary ---
Author Organization [facility] Address [address] [place] [address] Care Team Providers Care Bioassayist Name Role Phone Unavailable Primary Care Provider Unavailabl e Encounter Details Date Type Department Care Team (Late st Contact Info) Description 01/03/2021 Transcribed Document [facility] [place] Family Medicine [address] [place] [address] ProviderMacrina MD [address] [place], [place] 278201 Social History Tobacco Use Types Packs/Day Years [...]
--- OUTSIDE RECORDS SUMMARY | 2025-01-16 12:43 | XMS_ITS | Encounter Summary ---
Author Organization [facility] In iatives Address [address] [place] [address] Care Team Providers Care Remote Sensing Technician Name Role Phone Unavailable Primary Care Provider Unavailabl e Encounter Details Date Type Department Care Team (Late st Contact Info) Description 01/10/2021 Transcribed Document [facility] [place] [address] [place] [address] ProviderMacrina MD [address] [place], [place] [address] Social History Tobacco Use Types Packs/Day Years [...]
--- OUTSIDE RECORDS SUMMARY | 2025-01-16 12:43 | XMS_ITS | Encounter Summary ---
Author Organization [employer] [facility] Address [address] [place] [address] Care Team Providers Care Paid Search Marketing Analyst Name Role Phone Unavailable Primary Care Provider Unavailabl e Encounter Details Date Type Department Care Team (Late st Contact Info) Description 12/31/2020 Transcribed Document [facility] [place] Family Medicine [address] [place] [address] ProviderMacrina MD [address] [place] [address] Social History Tobacco Use Types [...] AAT to goal at 50ml/hr + 1 [id number] daily (provides 1710kcal, 83g PRO). Goal: meet [...]
--- OUTSIDE RECORDS SUMMARY | 2025-01-16 12:43 | XMS_ITS | Encounter Summary ---
Author Organization [facility] Address [address] [place] [address] Care Team Providers Care Kieselguhr Regenerator Operator Name Role Phone Unavailable Primary Care Provider Unavailabl e Encounter Details Date Type Department Care Team (Late st Contact Info) Description 01/16/[address] [facility] [place] Family Medicine [facility] [place] [address] ProviderMacrina MD [address] [place] [address] Social History Tobacco Use Types [...] 1012. 01/02/21: POD#6 Intubated and sedated on [id number]/hr and Precedex .6mcg/kg/min. He is also on [...] #18 Patient still not cleared for PO [facility] has accepted the patient, but he needs a PEG. Will consult general surgery for PEG placement prior to transfer to [facility] 01/15/2021 POD #19 Planning to repeat swallow evaluation. Depending on results, may require PEG prior to transfer to [facility]. 01/16/2021: POD #20 Continue tube feedings PEG tomorrow per Dr. Rodriguez Spoke with , will contact [facility] tomorrow for bed availability once PEG [...]
--- OUTSIDE RECORDS SUMMARY | 2025-01-16 12:43 | XMS_ITS | Encounter Summary ---
Author Organization [facility] In iatives Address [address] [place] [address] Care Team Providers Care Shredder Tender Name Role Phone Unavailable Primary Care Provider Unavailabl e Encounter Details Date Type Department Care Team (Late st Contact Info) Description 12/31/2020 Transcribed Document [facility] [place] [address] [place] [address] ProviderMacrina MD [address] [place], [place] [address]251 Social History Tobacco Use Types Packs/Day Years Used Date Smoking Tobacco: Never Assessed Sex and Gender Information Value Date Recorded Sex Assigned at Not on file Legal Sex Male 1:13 PM CDT Gender Identity Not on file Sexual Orientation Not on file documented as of this encounter Miscellaneous Notes * Cerner Conversion Note - Historical ProviderMD - 12/31/2020 2:00 AM CDT [place] Soaping Machine Operator Details Entered On: 12/31/2020 3:31 EDT Performed [...]
--- OUTSIDE RECORDS SUMMARY | 2025-01-16 12:43 | XMS_ITS | Encounter Summary ---
Author Organization [employer] In iatives Address [address] [place] [address] Care Team Providers Care Patient Safety Coordinator Name Role Phone Unavailable Primary Care Provider Unavailabl e Encounter Details Date Type Department Care Team (Late st Contact Info) Description 01/15/2021 Transcribed Document [facility] Cardiology [address] [place] [address] Danyelle Gomez MD [address] [facility] [address] [place] [id number] Social History Tobacco Use Types Packs/Day Years [...] MD-CAR BASIC PCP: Robert Batista MD Primary Managed Care Liaison: Danyelle Gomez MD Subjective Moved to telemetry. [...] 33.2 \ Radiology Results (Last 48 hours) [id number] -- 12/27/2020 06:39 CR Chest 1 Vw [...] s/p pericardiocentesis and surgical repair of LV [place]. *PEA Arrest; CODE called 10 minutes to [...]
--- OUTSIDE RECORDS SUMMARY | 2025-01-16 12:43 | XMS_ITS | Encounter Summary ---
Author Organization [facility] Address [address] [place] [address] Care Team Providers Care Senior International Tax Manager Name Role Phone Unavailable Primary Care Provider Unavailabl e Encounter Details Date Type Department Care Team (Late st Contact Info) Description 12/31/2020 Transcribed Document [facility] Family Medicine [address] [place] [address] ProviderMacrina MD [address] [place] [address] Social History Tobacco Use Types Packs/Day Years [...]
--- OUTSIDE RECORDS SUMMARY | 2025-01-16 12:43 | XMS_ITS | Encounter Summary ---
Author Organization [employer] In iatives Address [address] [place] [address] Care Team Providers Care Supervisor Chemical Name Role Phone Unavailable Primary Care Provider Unavailabl e Encounter Details Date Type Department Care Team (Late st Contact Info) Description 01/10/2021 Transcribed Document [facility] [place] [address] [place] [address] ProviderMacrina MD [address] [place] [...] On: 01/10/2021 9:15 EDT by TREE VIVEROS, NATIONAL SALES DIRECTOR General Information Respiratory Assessment Comment : Nasal cannula TREE VIVEROS, BENJY - 01/10/2021 9:18 EDT Visit Type, NATIONAL SALES DIRECTOR : Re-Evaluation Patient Orders : Speech Language Pathology FEES -111 Start: 01/10/21 6:00:00 EDT, Routine, For Swallow Eval and Treat - BEATRICE VERONICA APRN Speech Language Pathology Additional Tx - Start: 01/07/21 10:25:00 EDT, For Dysphagia Cognitive Other (use Special instructions), dysarthria, Continuous Order -111 Admission Date : Admission Date/Time: 12/27/20 06:39:00 Medical Chart Reviewed, NATIONAL SALES DIRECTOR : Yes Personal Devices : Personal Devices [...] BENJY - 01/10/2021 9:15 EDT Therapy Diagnosis, NATIONAL SALES DIRECTOR : Pt presents with normal oral skills [...] Admission : NPO with corpak Intubation Comment, NATIONAL SALES DIRECTOR : 12/27-12/31, reintubated 01/01-01/05 Vital Signs RTF [...] 9:15 EDT General Status Patient Received Status, NATIONAL SALES DIRECTOR : Up in chair Patient Left Status, NATIONAL SALES DIRECTOR : Up in chair TREE VIVEROS SLP [...] Oral Mechanism for Daily Living : Intact NATIONAL SALES DIRECTOR Cough : Weak TREE VVIEROS SLP - 01/10/2021 9:56 EDT FEES Exam [...] Impairment Severity : Severe Further Evaluation Required, NATIONAL SALES DIRECTOR : Repeat instrumental in 1 week prior [...] for ice in moderation after oral care. NATIONAL SALES DIRECTOR will continue dysphagia tx and repeat instrumental [...] - 01/10/2021 9:56 EDT Therapy Indication Assessment NATIONAL SALES DIRECTOR Indicated : Yes NATIONAL SALES DIRECTOR Interdisciplinary Consultation Needs : No Potential Barriers to NATIONAL SALES DIRECTOR : Acuity of illness NATIONAL SALES DIRECTOR Rehabilitation Potential : Guarded NATIONAL SALES DIRECTOR Potential Guarded Due to : severity of deficits TREE VIVEROS SLP - 01/10/2021 9:56 EDT Swallow Plan/Goals Treatment Frequency, NATIONAL SALES DIRECTOR : 5 times per wk Treatment Plan Est w/Pt/Caregvr, Swallow : Yes Treatment Duration, NATIONAL SALES DIRECTOR : One week Therapy at Next Level of Care, NATIONAL SALES DIRECTOR : Acute inpatient rehab TREE VIVEROS SLP - 01/10/2021 9:18 EDT Swallow LTG Grid NATIONAL SALES DIRECTOR Pharmacy Affairs Assistant Goal #1 NATIONAL SALES DIRECTOR Pharmacy Affairs Assistant Goal #2 Swallow LTG : Establish safe [...] TREE VIVEROS SLP - 01/10/2021 9:18 EDT NATIONAL SALES DIRECTOR Education Assessment Grid 1 Dysphagia, Effects of Impairment : Verbalizes understanding Ice Chips : Verbalizes understanding MBSS/VFSS/FEES Results : Verbalizes understanding Oral Care : Verbalizes understanding TREE VIVEROS SLP - 01/10/2021 9:18 EDT NATIONAL SALES DIRECTOR Education Assessment Grid 2 Treatment Plan : Verbalizes understanding TREE VIVEROS SLP - 01/10/2021 9:[address] [facility] NATIONAL SALES DIRECTOR Charges [facility] Ea 15 Min : 1 FEES : 1 TREE VIVEROS SLP - 01/10/2021 9:18 EDT Anticipated Discharge Needs, NATIONAL SALES DIRECTOR Anticipated Discharge to : Rehab, high intensity Recommend Continued Therapy at Discharge : Yes TREE VIVEROS, NATIONAL SALES DIRECTOR - 01/10/2021 9:18 EDT documented in this encounter Plan of Treatment Not on file documented as of this encounter Visit Diagnoses Not on filedocumented in this encounter
--- OUTSIDE RECORDS SUMMARY | 2025-01-16 12:43 | XMS_ITS | Encounter Summary ---
Author Organization [employer] [facility] Address [address] [place] [address] Care Team Providers Care Aircraft Ordnance Systems Mechanic Name Role Phone Unavailable Primary Care Provider Unavailabl e Encounter Details Date Type Department Care Team (Late st Contact Info) Description 01/16/2021 Transcribed Document [facility] [place] Family Medicine [address] [place] [address] ProviderMacrina MD [address] [place] [address] Social History Tobacco Use Types [...]
--- OUTSIDE RECORDS SUMMARY | 2025-01-16 12:43 | XMS_ITS | Encounter Summary ---
Author Organization [facility] Address [address] [place] [address] Care Team Providers Care Legal Adviser Name Role Phone Unavailable Primary Care Provider Unavailabl e Encounter Details Date Type Department Care Team (Late st Contact Info) Description 01/04/2021 Transcribed Document [facility] [place] [facility] [place] [address] ProviderMacrina MD [address] [place], [place] [id number] Social History Tobacco Use Types Packs/Day Years [...] 1012. 01/02/21: POD#6 Intubated and sedated on [id number]/hr and Precedex .6mcg/kg/min. He is also on [...] Non-distended, Normal bowel sounds. Integumentary: Warm, Dry, [place]. Neurologic: The pt is able to move [...]
--- OUTSIDE RECORDS SUMMARY | 2025-01-16 12:43 | XMS_ITS | Encounter Summary ---
Author Organization [facility] In iatives Address [address] [place] [address] Care Team Providers Care Oracle Database Consultant Name Role Phone Unavailable Primary Care Provider Unavailabl e Encounter Details Date Type Department Care Team (Late st Contact Info) Description 12/31/2020 Transcribed Document [facility] Pulm & Critical Care Medicine [address] [place] [address] [address] [place] [address] Erick Navarro MD [address] [facility] [address] [place] [address] Social History Tobacco Use Types [...] Medical Aortic valve stenosis / SNOMED CT 494621010 / Confirmed At risk for sleep apnea / IMO [id number] / Confirmed Colorectal surgery / SNOMED CT 7276593099 / Confirmed HTN - Hypertension / SNOMED CT 3709235757 / Confirmed, Active Problems (13) Aortic stenosis, [...] 24 Hours) Radiology Results (Last 48 hours) [id number] -- 12/27/2020 06:39 CR Chest 1 Vw [...] team, including critical care team, CCRN, RT., Automotive Salesperson , case management and clinical pharmacist. I [...] CXR and labs in AM NTS with daily/Warrick catheter as needed Head of bed elevation more than 45 degree thank you Full code Prognosis is guarded high risk for reintubation Disposition intensive care unit I discussed with cardiothoracic surgery LUCÍA Stinson, I discussed with Dr. Sainz information security manager, possible need for neurology consultation will defer [...]
--- OUTSIDE RECORDS SUMMARY | 2025-01-16 12:43 | XMS_ITS | Encounter Summary ---
Author Organization [employer] [facility] Address [address] [place] [address] Care Team Providers Care Jalousie Installer Name Role Phone Unavailable Primary Care Provider Unavailabl e Encounter Details Date Type Department Care Team (Late st Contact Info) Description 01/16/2021 Transcribed Document [facility] [place] [address] [place] [address] ProviderMacrina MD [address] [place] [address] Social History Tobacco Use Types [...] 01/16/2021 10:20 EDT by JUAN MANUEL BRUMFIELD, AVIATION MECHANIC General Information Visit Type, AVIATION MECHANIC : Re-Evaluation Patient Orders : Speech Language Pathology Modified Barium Swallow Study -111 Start: 01/16/21 7:00:00 EDT, Routine, For Other (see special instructions), Dysphagia - ANANDA MILLER PA Speech Language Pathology Additional Tx - Start: 01/07/21 10:25:00 EDT, For Dysphagia Cognitive Other (use Special instructions), dysarthria, Continuous Order -111 Admission Date : Admission Date/Time: 12/27/20 06:39:00 Medical Chart Reviewed, AVIATION MECHANIC : Yes Personal Devices : Personal Devices [...] SLP - 01/16/2021 10:20 EDT Therapy Diagnosis, AVIATION MECHANIC : Pt presents with functional oral skills [...] Admission : NPO with corpak Intubation Comment, AVIATION MECHANIC : 12/27-12/31, reintubated 01/01-01/05 Vital Signs RTF [...] 10:20 EDT General Status Patient Received Status, AVIATION MECHANIC : Up in chair Patient Left Status, AVIATION MECHANIC : Up in chair JUAN MANUEL BRUMFIELD [...] - 01/16/2021 10:20 EDT Therapy Indication Assessment AVIATION MECHANIC Indicated : Yes AVIATION MECHANIC Problem List : Impaired, Memory, Impaired, Motor Speech, Impaired, Swallowing JUAN MANUEL BRUMFIELD SLP - 01/16/2021 10:20 EDT Swallow Plan/Goals Treatment Frequency, AVIATION MECHANIC : 5 times per wk Treatment Plan Est w/Pt/Caregvr, Swallow : Yes JUAN MANUEL BRUMFIELD SLP - 01/16/2021 10:20 EDT Swallow LTG Grid AVIATION MECHANIC Child Care Director Goal #1 AVIATION MECHANIC Group Home Goal #2 Swallow LTG : Establish safe oral diet without aspiration Improve swallowing function for oral intake Status : Progressing, continue Progressing, continue JUAN MANUEL BRUMFIELD SLP - 01/16/2021 10:20 EDT JUAN MANUEL BRUMFIELD, AVIATION MECHANIC - 01/16/2021 10:20 EDT Swallow Goals Grid [...] 01/10/2021 EDT 01/10/2021 EDT JUAN MANUEL BRUMFIELD, AVIATION MECHANIC - 01/16/2021 10:20 EDT JUAN MANUEL BRUMFIELD, AVIATION MECHANIC - 01/16/2021 10:20 EDT JUAN MANUEL BRUMFIELD, AVIATION MECHANIC - 01/16/2021 10:20 EDT JUAN MANUEL BRUMFIELD, AVIATION MECHANIC - 01/16/2021 10:20 EDT Goal #5 Goal [...] MANUEL BRUMFIELD SLP - 01/16/2021 10:20 EDT JAUN MANUEL BRUMFIELD, AVIATION MECHANIC - 01/16/2021 10:20 EDT JUAN MANUEL BRUMFIELD, AVIATION MECHANIC - 01/16/2021 10:20 EDT JUAN MANUEL BRUMFIELD, AVIATION MECHANIC - 01/16/2021 10:20 EDT Education Barriers To Learning : Cognitive deficit, Emotional state Individuals Taught : Patient JUAN MANUEL BRUMFIELD SLP - 01/16/2021 10:20 EDT AVIATION MECHANIC Education Assessment Grid 1 Aspiration : Needs further teaching Dysphagia : Needs further teaching Dysphagia, Effects of Impairment : Needs further teaching MBSS/VFSS/FEES Results : Needs further teaching Non-Oral Nutrition : Needs further teaching, Corpak v. PEG JUAN MANUEL BRUMFIELD SLP - 01/16/2021 10:20 EDT AVIATION MECHANIC Education Assessment Grid 2 Signs of Distress with Oral Intake : Needs further teaching, and silent aspiration JUAN MANUEL BRUMFIELD SLP - 01/16/2021 10:[address] [facility] Charges Modified Barium Swallow : 1 JUAN MANUEL BRUMFIELD SLP - 01/16/2021 10:20 EDT Anticipated Discharge Needs, AVIATION MECHANIC Anticipated Discharge to : Rehab, high intensity Recommend Continued Therapy at Discharge : Yes (Comment: s4 [JUAN MANUEL BRUMFIELD SLP - 01/16/2021 10:20 EDT] ) JUAN MANUEL BRUMFIELD SLP - 01/16/2021 10:20 EDT documented in this encounter Plan of Treatment Not on file documented as of this encounter Visit Diagnoses Not on filedocumented in this encounter
--- OUTSIDE RECORDS SUMMARY | 2025-01-16 12:43 | XMS_ITS | Encounter Summary ---
Author Organization [facility] In iatives Address [address] [place] [address] Care Team Providers Care Back End Engineer Name Role Phone Unavailable Primary Care Provider Unavailabl e Encounter Details Date Type Department Care Team (Late st Contact Info) Description 01/10/2021 Transcribed Document [facility] Cardiology [address] [place] [address] Danyelle Gomez MD [address] [facility] [address] [place] [id number] Social History Tobacco Use Types Packs/Day Years [...] Basic Information PCP: Robert Batista MD Primary Occupational Medicine Physician: Danyelle Gomez MD Subjective Sitting up in [...] 24 Hours) Radiology Results (Last 48 hours) [id number] -- 12/27/2020 06:39 CR Chest 1 Vw [...] s/p pericardiocentesis and surgical repair of LV [place]. PEA Arrest; CODE called 10 minutes to [...]
--- OUTSIDE RECORDS SUMMARY | 2025-01-16 12:43 | XMS_ITS | Encounter Summary ---
Author Organization [employer] [facility] Address [address] [place] [address] Care Team Providers Care Program Coordinator For Residence Life Name Role Phone Unavailable Primary Care Provider Unavailabl e Encounter Details Date Type Department Care Team (Late st Contact Info) Description 01/10/2021 Transcribed Document [facility] [place] Family Medicine [address] [place] [address] ProviderMacrina MD [address] [place] [address] Social History Tobacco Use Types [...] the next three days for any issues. Electronically signed by Olinda Payne Conversion Measurement And Verification Engineer Cerner at 11/10/2022 9:24 AM CDT documented in this encounter Plan of Treatment Not on file documented as of this encounter Visit Diagnoses Not on filedocumented in this encounter
--- OUTSIDE RECORDS SUMMARY | 2025-01-16 12:43 | XMS_ITS | Encounter Summary ---
Author Organization [employer] Address [address] [place] [address] Care Team Providers Care Brisket Puller Name Role Phone Unavailable Primary Care Provider Unavailabl e Encounter Details Date Type Department Care Team (Late st Contact Info) Description 01/09/2021 Transcribed Document [facility] Cardiology [address] [place] [address] Danyelle Gomez MD [address] [facility] [address] [place] [id number] Social History Tobacco Use Types Packs/Day Years [...] Basic Information PCP: Robert Batista MD Primary Bindery Machine Feeder Offbearer: Danyelle Gomez MD Subjective Resting in bed, [...] 24 Hours) Radiology Results (Last 48 hours) [id number] -- 12/27/2020 06:39 CR Chest 1 Vw [...] s/p pericardiocentesis and surgical repair of LV [place]. PEA Arrest; CODE called 10 minutes to [...]
--- OUTSIDE RECORDS SUMMARY | 2025-01-16 12:43 | XMS_ITS | Encounter Summary ---
Author Organization [facility] Address [address] [place] [address] Care Team Providers Care Shorthand Teacher Name Role Phone Unavailable Primary Care Provider Unavailabl e Encounter Details Date Type Department Care Team (Late st Contact Info) Description 01/03/2021 Transcribed Document [facility] [place] [facility], [facility] [place] [address] ProviderMacrina MD [address], [place] [id number] Social History Tobacco Use Types Packs/Day Years [...] and Precedex. Awake and following commands, positive chinese language professor in bilateral hands. MRI brain yesterday revealed [...] Problems Aortic valve stenosis / SNOMED CT 409381727 / Confirmed Arthritis of right knee / SNOMED CT 6873720073 / Confirmed At risk for sleep apnea / IMO 49151189 / Confirmed Chronic anxiety / SNOMED CT 654081716 / Confirmed Back pain, chronic / SNOMED CT 403029434 / Confirmed Colorectal surgery / SNOMED CT 8713280067 / Confirmed Disorder of prostate / SNOMED CT 72572809 / Confirmed GERD - Gastro-esophageal reflux disease / SNOMED CT 8895038321 / Confirmed H/O peripheral neuropathy / SNOMED CT 578675518 / Confirmed feet tingle all the time HTN - Hypertension / SNOMED CT 0076136412 / Confirmed Hyperlipidemia / SNOMED CT 20782963 / Confirmed Hypertension / SNOMED CT 59631430 / Confirmed Aortic stenosis, severe / SNOMED CT 7471129358 / Confirmed Resolved: Cancer of colon / SNOMED CT 5122020744, Active Problems (13) Aortic stenosis, severe Aortic [...] 01/03/2021 04:20 Radiology Results (Last 48 hours) [id number] -- 12/27/2020 06:39 CR Chest 1 Vw [...] team, including critical care team, CCRN, RT., Supervisor Slitting And Shipping , case management and clinical pharmacist. I [...] intensive care unit Electronically signed by [facility] Conversion Media Relations Manager Cerner at 11/10/2022 9:29 AM CDT documented in this encounter Plan of Treatment Not on file documented as of this encounter Visit Diagnoses Not on filedocumented in this encounter
--- OUTSIDE RECORDS SUMMARY | 2025-01-16 12:43 | XMS_ITS | Encounter Summary ---
Author Organization [facility] [employer] [facility] Address [address] [place] [address] Care Team Providers Care Tank Washer Name Role Phone Unavailable Primary Care Provider Unavailabl e Encounter Details Date Type Department Care Team (Late st Contact Info) Description 01/15/2021 Transcribed Document [facility] [place] Medicine [facility] [place] [address] ProviderMacrina MD [address] [place] [address] Social History Tobacco Use Types [...]
--- OUTSIDE RECORDS SUMMARY | 2025-01-16 12:43 | XMS_ITS | Encounter Summary ---
Author Organization [facility] [facility] Address [address] [place] [address] Care Team Providers Care Sound Recordist Name Role Phone Unavailable Primary Care Provider Unavailabl e Encounter Details Date Type Department Care Team (Late st Contact Info) Description 01/16/2021 Transcribed Document [facility] [place] [facility] [place] [address] ProviderMacrina MD [address] [place] [address] Social History Tobacco Use Types [...] On: 01/16/2021 17:30 EDT by ASHLEY CHAIDEZ RN-Neurology HospitalistBelt Back Operator Progress Note Discharge Arrangements : Patient Post-Acute Information Patient Name: [facility]: [id number] Gender: Male : 38 Age: 80 Years [...] Attend Multidisciplinary Rounds? : Yes ASHLEY CHAIDEZ RN-Neurology Hospitalist - 01/16/2021 17:30 EDT Narrative Progress Note [...] around bed to chair with RWx modA. MBBS/AUTO DAMAGE ADJUSTER: Recommend PEG, plan is placement tomorrow. DCP: [facility] after PEG placed. Patient has traditional MC will not need a PA. Plan to transport by [facility]. Historical Progress Note : RAR Low [...] with RWx modA. DCP: Referral made to [facility], patient's 1st choice, via [facility]. bao Barnes said her MD would accept patient but would like for his PEG to be placed prior to discharge. Patient has traditional Medicare so he will not need a preauth. ASHLEY CHAIDEZ RN-Neurology Hospitalist - 01/14/21 15:53:43 HD#15; ELOS 3; LRR; BOOST 6; POD#15 - ElecTAVR/LVentTear/Tamponade = 02=1L; LW=888; TF/Corpak 50cc; voice improving; working w/ST for dysphagia; plan for repeat instrumental in 1 wk; ongoing therapy; spouse to provide choicing for STR; on transfer out of [place]. SOPHY RM Rn-Neurology Hospitalist - 01/11/21 09:38:52 HD#14; ELOS 3; LRR; BOOST 6; POD#14 - ElecTAVR/LVentTear/Tamponade = 02=2L; BIPAP prn; Duonebs; Cefepime/Zosyn; FEES today; Cardiology managing Tacycardia; per LOS recommendation - pt referred to LTAC; likely DCP subacute rehab; anticipate transfer to floor soon. SOPHY RM Rn-Neurology Hospitalist - 01/10/21 08:19:07 HD#13; ELOS 3; LRR; BOOST 6; POD#13 - ElectiveTAVR/LVentTear/Tamponade - 02=2L; BIPAP prn for WOB/hs; Duonebs/IS/FVD encouraged; Patricio gtt; central line d/c 01/08/PICC placed; T=100; Maxipime; working with therapy - very weak; Mod-Max A x2 to EOB - not safe to stand; ST - failed/ongoing dysphagia tx; Corpak/TF; DCP rehab - improving. SOPHY RM Rn-Neurology Hospitalist - 01/09/21 07:48:59 HD#12; ELOS 3; LRR; BOOST 6; POD #12 - Electiv TAVR/LVentTear/Cardiac Tamponade SOPHY RM Rn-Neurology Hospitalist - 01/08/21 14:56:21 HD#12; ELOS 3; LRR; BOOST 6; POD #12 - Electiv TAVR/LVentTear/Cardiac Tamponade/Embolic Strokes w/ R side weakness; RA; IS/FVD encouraged; report pt with delerium/lethargy overnight - pulled out IV; PICC ordered today; R arm weakness; Corpak/TF - failed ST evaluation - improving; DCP Rehab; continue to follow SOPHY RM Rn-Neurology Hospitalist - 01/08/21 14:58:32 HD#11; ELOS 3; MRR; BOOST 6; POD#11 - Elective TAVR/LVentTear/Cardiac Tamponade; 02=2L; Maxipime/Ancef; IV Bumex; working w/therapy and stood at side of bed; SOPHY RM Rn-Neurology Hospitalist - 01/07/21 14:34:53 HD#11; ELOS 3; MRR; BOOST 6; POD#11 - Elective TAVR/LVentTear/Cardiac Tamponade; 02=2L; Maxipime/Ancef; IV Bumex; working w/therapy and stood at side of bed; ST - ongoing rec for NPO r/t dysphagia - tx; instrumental 3-4 days; Corpak/TF; DCP anticipate rehab; initial referrals placed thru [facility] and list w/post acute star ratings provided to pt for choicing. SOPHY RM Rn-Neurology Hospitalist - 01/07/21 14:36:37 HD#8; ELOS 3; LRR; BOOST 6; POD#8 - Elec TAVR/LVentTear/Cardiac Tamponade - intubated fi02 100; awake/calm/following commands; bronchoscopy scheduled today; SBT; T=101.2; MRI - diffuse scattered bilateral infarcts; Dr. Navarro states during MDR that if pt is unable to successfully wean over weekend will need trach/peg consult on Thursday; continue to follow; will need therapy evaluations when extubated. SOPHY RM Rn-Neurology Hospitalist - 01/04/21 15:16:12 HD#7; ELOS 3; LRR; BOOST 6; POD#7 - Elective TAVR/LVentTear/CardiacTamponade/Arrest - intubated fi02 40/peep 8; SBT x 2 hr; Fent/Precedex gtt; Corpak/TF; Humza CT in place; Neurology following - MRI diffuse scattered bilateral infarcts; pt w/improvement in movement of R side; PT/OT evaluations when extubated; DCP TBD - likely rehab. SOPHY RM Rn-Neurology Hospitalist - 01/03/21 15:03:09 HD#6; ELOS 3; LRR; BOOST 6; POD #6 - Electiv TAVR/L Vent Tear/Cardiac Tamponode/Arrest - reintubated 01/01; fi02 40; Levo/Fent/Precedex gtt; wean sedation - on SBT 2hr TID; T=99.9; Dr. Navarro states during MDR that pt's spouse aware may need trach/peg; DCP TBD pending progress. SOPHY RM Rn-Neurology Hospitalist - 01/02/21 14:55:12 HD#5; ELOS 3; LRR; BOOST 6; POD #5 - Elective TAVR/L Ventrial Tear/Cardiac Tamponode; extubated on 12/31 required reintubation today fi02 60/peep 8; Precedex/Fent gtt; Corpak/TF; IV Zosyn; CT draining; T=100; DCP TBD pending progress; will need therapy evals when appropriate. SOPHY RM Rn-Neurology Hospitalist - 01/01/21 14:47:57 HD#4; ELOS 3; LRR; POD#4 - Electiv TAVR; L Ventrical Tear; intubated fi02 50; Cardene gtt; Corpak to be placed and TF initiated; SBT today; following commands; Head MRI ordered; possible extubation post MRI; no movement noted on R side; will need PT/OT evaluations when extubated; DCP pending progress - likely rehab. SOPHY RM Rn-Neurology Hospitalist - 12/31/20 14:58:43 DCP TBD - pending progress; OP Cardiac Rehab referral placed thru [facility]. SOPHY RM Rn-Neurology Hospitalist - 12/28/20 12:42:03 ASHLEY CHAIDEZ RN-Neurology Hospitalist - 01/16/2021 17:30 EDT documented in this encounter Plan of Treatment Not on file documented as of this encounter Visit Diagnoses Not on filedocumented in this encounter
--- OUTSIDE RECORDS SUMMARY | 2025-01-16 12:43 | XMS_ITS | Encounter Summary ---
Author Organization [facility] Address [address] [place] [address] Care Team Providers Care Vacuum Worker Name Role Phone Unavailable Primary Care Provider Unavailabl e Encounter Details Date Type Department Care Team (Late st Contact Info) Description 12/31/2020 Transcribed Document [facility] [place] Medicine [facility] [place] [address] ProviderMacrina MD [address] [place] [id number] Social History Tobacco Use Types Packs/Day Years [...] No edema. Gastrointestinal: Soft. Integumentary: Warm, Dry, [place]. Review / Management Results review: DEC 31 [...]
--- OUTSIDE RECORDS SUMMARY | 2025-01-16 12:43 | XMS_ITS | Encounter Summary ---
Author Organization [facility] Address [address] [place] [address] Care Team Providers Care Sr. Vendor Management Associate Name Role Phone Unavailable Primary Care Provider Unavailabl e Encounter Details Date Type Department Care Team (Late st Contact Info) Description 01/10/2021 Transcribed Document [facility] [place] Family Medicine [address] [place] [address] ProviderMacrina MD [address] [place] [address] Social History Tobacco Use Types [...] - 01/10/2021 10:50 AM CDT Consult to Senior Medical Billing Specialist Entered On: 01/10/2021 14:03 EDT Performed On: 01/10/2021 10:50 EDT by Kathy Medrano, RN Consult to Senior Medical Billing Specialist Modifiable Risk Factors : Dyslipidemia, Hypertension Non-Modifiable Risk Factors, Age : Non-Modifiable Risk Factors, Age Age: 80 Years Non-Modifiable Risk Factors, Race : Non-Modifiable Risk Factors, Race Race: White Non-Modifiable Risk Factors, Family History : Non-Modifiable Risk Factors, Family History Heart disease: Father (12/27/20 08:31:11) Heart disease: Mother (12/27/20 08:31:11) Modified Mccurtain Score : Modified Chantel Scale No qualifying data available. NIH Stroke Scale (Admission) : NIH Stroke Scale (Admission) NIH Scale Score: 5 (01/07/2021 08:00:00) NIH Stroke Scale (Discharge) : NIH Stroke Scale (Discharge) NIH Scale Score: 5 (01/07/2021 08:00:00) Bedside Swallow (TRAY DRIER) : Bedside Swallow (TRAY DRIER) Swallow Outcome BS Swallow: Impaired (01/07/21 09:35:00) [...] Kathy Medrano RN - 01/10/2021 13:43 EDT Senior Medical Billing Specialist Needs Assessment Diagnosis Documented by Provider : Acute Ischemic Stroke Modifiable Risk Factors : Dyslipidemia, Hypertension Senior Medical Billing Specialist Consultation Summary : Met with patient to [...] EDT) Problems(Active) Aortic stenosis, severe (SNOMED CT :9788381430 ) Name of Problem: Aortic stenosis, severe ; Recorder: CINDY HAGAN RN; Confirmation: Confirmed ; Classification: Patient Stated ; Code: 4022246752 ; Contributor System: PowerChart ; Last Updated: 12/03/2020 13:33 EDT ; Life Cycle Date: 12/03/2020 ; Life Cycle Status: Active ; Vocabulary: SNOMED CT Aortic valve stenosis (SNOMED CT :694142131 ) Name of Problem: Aortic valve stenosis ; Recorder: FABRICE JOSEPH RN; Confirmation: Confirmed ; Classification: Medical ; Code: 229407871 ; Contributor System: PowerChart ; Last Updated: 12/27/2020 8:31 EDT ; Life Cycle Status: Active ; Vocabulary: SNOMED CT Arthritis of right knee (SNOMED CT :1723466225 ) Name of Problem: Arthritis of right knee ; Recorder: CINDY HAGAN RN; Confirmation: Confirmed ; Classification: Patient Stated ; Code: 7027742182 ; Contributor System: PowerChart ; Last Updated: 12/03/2020 13:35 EDT ; Life Cycle Date: 12/03/2020 ; Life Cycle Status: Active ; Vocabulary: SNOMED CT At risk for sleep apnea (IMO :62224546 ) Name of Problem: At risk for sleep apnea ; Recorder: SYSTEM, SYSTEM; Confirmation: Confirmed ; Classification: Medical ; Code: 58570680 ; Last Updated: 11/15/2019 7:34 EDT ; Life Cycle Date: 11/15/2019 ; Life Cycle Status: Active ; Vocabulary: IMO At risk for violence (IMO :22487775 ) Name of Problem: At risk for violence ; Recorder: SYSTEM, SYSTEM; Confirmation: Confirmed ; Classification: Medical ; Code: 83334073 ; Last Updated: 01/08/2021 8:42 EDT ; Life Cycle Date: 01/08/2021 ; Life Cycle Status: Active ; Vocabulary: IMO Back pain, chronic (SNOMED CT :390757718 ) Name of Problem: Back pain, chronic ; Recorder: CELESTINA ALVARADO RN; Confirmation: Confirmed ; Classification: Patient Stated ; Code: 787359918 ; Contributor System: PowerChart ; Last Updated: 09/19/2019 13:32 EST ; Life Cycle Date: 09/19/2019 ; Life Cycle Status: Active ; Vocabulary: SNOMED CT Chronic anxiety (SNOMED CT :699694561 ) Name of Problem: Chronic anxiety ; Recorder: CELESTINA ALVARADO RN; Confirmation: Confirmed ; Classification: Patient Stated ; Code: 462623632 ; Contributor System: PowerChart ; Last Updated: 09/19/2019 13:30 EST ; Life Cycle Date: 09/19/2019 ; Life Cycle Status: Active ; Vocabulary: SNOMED CT Colorectal surgery (SNOMED CT :6895608596 ) Name of Problem: Colorectal surgery ; Onset Date: 12/05/1997 ; Recorder: TONY BRIDGES RN; Confirmation: Confirmed ; Classification: Medical ; Code: 8099575851 ; Contributor System: PowerChart ; Last Updated: 12/25/2020 10:35 EDT ; Life Cycle Date: 12/25/2020 ; Life Cycle Status: Active ; Vocabulary: SNOMED CT Disorder of prostate (SNOMED CT :70484171 ) Name of Problem: Disorder of prostate ; Recorder: CELESTINA ALVARADO, SHYAM; Confirmation: Confirmed ; Classification: Patient Stated ; Code: 65399317 ; Contributor System: PowerChart ; Last Updated: 09/19/2019 13:31 EST ; Life Cycle Date: 09/19/2019 ; Life Cycle Status: Active ; Vocabulary: SNOMED CT GERD - Gastro-esophageal reflux disease (SNOMED CT :6515836699 ) Name of Problem: GERD - Gastro-esophageal reflux disease ; Recorder: CELESTINA ALVARADO RN; Confirmation: Confirmed ; Classification: Patient Stated ; Code: 7677817583 ; Contributor System: PowerChart ; Last Updated: 09/19/2019 13:31 EST ; Life Cycle Date: 09/19/2019 ; Life Cycle Status: Active ; Vocabulary: SNOMED CT H/O peripheral neuropathy (SNOMED CT :962299889 ) Name of Problem: H/O peripheral neuropathy ; Recorder: CINDY HAGAN RN; Confirmation: Confirmed ; Classification: Patient Stated ; Code: 033997770 ; Contributor System: PowerChart ; Last Updated: 12/25/2020 10:35 EDT ; Life Cycle Status: Active ; Vocabulary: SNOMED CT ; Comments: 12/25/2020 10:35 - TONY BRIDGES RN feet tingle all the time HTN - Hypertension (SNOMED CT :7446534424 ) Name of Problem: HTN - Hypertension ; Recorder: FABRICE JOSEPH RN; Confirmation: Confirmed ; Classification: Medical ; Code: 5021476515 ; Contributor System: PowerChart ; Last Updated: 12/27/2020 8:32 EDT ; Life Cycle Status: Active ; Vocabulary: SNOMED CT Hyperlipidemia (SNOMED CT :82081587 ) Name of Problem: Hyperlipidemia ; Recorder: CELSETINA ALVARADO, SHYAM; Confirmation: Confirmed ; Classification: Patient Stated ; Code: 20520015 ; Contributor System: PowerChart ; Last Updated: 09/19/2019 13:29 EST ; Life Cycle Date: 09/19/2019 ; Life Cycle Status: Active ; Vocabulary: SNOMED CT Hypertension (SNOMED CT :95317558 ) Name of Problem: Hypertension ; Recorder: CELESTINA ALVARADO RN; Confirmation: Confirmed ; Classification: Patient Stated ; Code: 61683937 ; Contributor System: Memeo ; Last Updated: 09/19/2019 13:29 EST ; [...] 12/31/2020 10:10:04 EDT Education Topics: Stroke Education (Senior Medical Billing Specialist) Stroke Education Handouts Given *Q : Yes Kathy Medrano RN - 01/10/2021 13:43 EDT documented in this encounter Plan of Treatment Not on file documented as of this encounter Visit Diagnoses Not on filedocumented in this encounter
--- OUTSIDE RECORDS SUMMARY | 2025-01-16 12:44 | XMS_ITS | Encounter Summary ---
Author Organization [facility] Address [address] [place] [address] Care Team Providers Care Personnel Arbitrator Name Role Phone Unavailable Primary Care Provider Unavailabl e Encounter Details Date Type Department Care Team (Late st Contact Info) Description 01/11/2021 Transcribed Document [facility] [place] Family Medicine [address] [place] [address] ProviderMacrina MD [address] [place] [address] Social History Tobacco Use Types [...] Source : Measured Height Entry Format : [place] Height, Feet : 0 ft Height, Inches [...]
--- OUTSIDE RECORDS SUMMARY | 2025-01-16 12:44 | XMS_ITS | Encounter Summary ---
Author Organization [employer] [facility] [employer] Address [address] [place] [address] Care Team Providers Care Tactical/Mobile Watch Officer Name Role Phone Unavailable Primary Care Provider Unavailabl e Encounter Details Date Type Department Care Team (Late st Contact Info) Description 12/28/2020 Transcribed Document [facility] Cardiology [address] [place] [address] Enrique Valle MD [address] [facility] [address] [place] [address] Social History Tobacco Use Types Packs/Day Years [...] Basic Information PCP: Robert Batista MD Primary Topographical Engineer: Arthur Gomez MD Subjective mechanical vent Health [...] 23.8 \ Radiology Results (Last 48 hours) [id number] -- 12/27/2020 06:39 CR Chest 1 Vw [...] s/p pericardiocentesis and surgical repain of LV [place]. PEA Arrest; CODE called 10 minutes to [...]
--- OUTSIDE RECORDS SUMMARY | 2025-01-16 12:44 | XMS_ITS | Encounter Summary ---
Author Organization [facility] Address [address] [place] [address] Care Team Providers Care Location Analyst Name Role Phone Unavailable Primary Care Provider Unavailabl e Encounter Details Date Type Department Care Team (Late st Contact Info) Description 01/11/2021 Transcribed Document [facility] [place] Family Medicine [address] [place] [address] ProviderMacrina MD [address], [place] [id number] Social History Tobacco Use Types Packs/Day Years [...] On: 01/11/2021 9:35 EDT by SOPHY RM Rn-Workers Compensation Defense AttorneyMold Maintenance Technician Progress Note Discharge Arrangements : Patient [...] : Clinical Condition of Patient SOPHY RM Rn-Workers Compensation Defense Attorney - 01/11/2021 9:35 EDT Narrative Progress Note Narrative Progress Note : HD#15; ELOS 3; LRR; BOOST 6; POD#15 - ElecTAVR/LVentTear/Tamponade = 02=1L; LE=437; TF/Corpak 50cc; voice improving; working w/ST for [...] anticipate transfer to floor soon. SOPHY RM Rn-Workers Compensation Defense Attorney - 01/10/21 08:19:07 HD#13; ELOS 3; LRR; BOOST 6; POD#13 - ElectiveTAVR/LVentTear/Tamponade - 02=2L; BIPAP prn for WOB/hs; Duonebs/IS/FVD encouraged; Patricio gtt; central line d/c 6/15/PICC placed; T=100; Maxipime; working with therapy - very weak; Mod-Max A x2 to EOB - not safe to stand; ST - failed/ongoing dysphagia tx; Corpak/TF; DCP rehab - improving. SOPHY RM Rn-Workers Compensation Defense Attorney - 01/09/21 07:48:59 HD#12; ELOS 3; LRR; BOOST 6; POD #12 - Electiv TAVR/LVentTear/Cardiac Tamponade SOPHY RM Rn-Workers Compensation Defense Attorney - 01/08/21 14:56:21 HD#12; ELOS 3; LRR; BOOST 6; POD #12 - Electiv TAVR/LVentTear/Cardiac Tamponade/Embolic Strokes w/ R side weakness; RA; IS/FVD encouraged; report pt with delerium/lethargy overnight - pulled out IV; PICC ordered today; R arm weakness; Corpak/TF - failed ST evaluation - improving; DCP Rehab; continue to follow SOPHY RM Rn-Workers Compensation Defense Attorney - 01/08/21 14:58:32 HD#11; ELOS 3; MRR; BOOST 6; POD#11 - Elective TAVR/LVentTear/Cardiac Tamponade; 02=2L; Maxipime/Ancef; IV Bumex; working w/therapy and stood at side of bed; SOPHY RM Rn-Workers Compensation Defense Attorney - 01/07/21 14:34:53 HD#11; ELOS 3; MRR; BOOST 6; POD#11 - Elective TAVR/LVentTear/Cardiac Tamponade; 02=2L; Maxipime/Ancef; IV Bumex; working w/therapy and stood at side of bed; ST - ongoing rec for NPO r/t dysphagia - tx; instrumental 3-4 days; Corpak/TF; DCP anticipate rehab; initial referrals placed thru [facility] and list w/post acute star ratings provided to pt for choicing. SOPHY RM Rn-Workers Compensation Defense Attorney - 01/07/21 14:36:37 HD#8; ELOS 3; LRR; BOOST 6; POD#8 - Elec TAVR/LVentTear/Cardiac Tamponade - intubated fi02 100; awake/calm/following commands; bronchoscopy scheduled today; SBT; T=101.2; MRI - diffuse scattered bilateral infarcts; Dr. Navarro states during MDR that if pt is unable to successfully wean over will need trach/peg consult on Thursday; continue to follow; will need therapy evaluations when extubated. SOPHY RM Rn-Workers Compensation Defense Attorney - 01/04/21 15:16:12 HD#7; ELOS 3; LRR; BOOST 6; POD#7 - Elective TAVR/LVentTear/CardiacTamponade/Arrest - intubated fi02 40/peep 8; SBT x 2 hr; Fent/Precedex gtt; Corpak/TF; Humza CT in place; Neurology following - MRI diffuse scattered bilateral infarcts; pt w/improvement in movement of R side; PT/OT evaluations when extubated; DCP TBD - likely rehab. SOPHY RM Rn-Workers Compensation Defense Attorney - 01/03/21 15:03:09 HD#6; ELOS 3; LRR; BOOST 6; POD #6 - Electiv TAVR/L Vent Tear/Cardiac Tamponode/Arrest - reintubated 01/01; fi02 40; Levo/Fent/Precedex gtt; wean sedation - on SBT 2hr TID; T=99.9; Dr. Navarro states during MDR that pt's spouse aware may need trach/peg; DCP TBD pending progress. SOPHY RM Rn-Workers Compensation Defense Attorney - 01/02/21 14:55:12 HD#5; ELOS 3; LRR; BOOST 6; POD #5 - Elective TAVR/L Ventrial Tear/Cardiac Tamponode; extubated on 12/31 required reintubation today fi02 60/peep 8; Precedex/Fent gtt; Corpak/TF; IV Zosyn; CT draining; T=100; DCP TBD pending progress; will need therapy evals when appropriate. SOPHY RM Rn-Workers Compensation Defense Attorney - 01/01/21 14:47:57 HD#4; ELOS 3; LRR; POD#4 - Electiv TAVR; L Ventrical Tear; intubated fi02 50; Cardene gtt; Corpak to be placed and TF initiated; SBT today; following commands; Head MRI ordered; possible extubation post MRI; no movement noted on R side; will need PT/OT evaluations when extubated; DCP pending progress - likely rehab. SOPHY RM Rn-Workers Compensation Defense Attorney - 12/31/20 14:58:43 DCP TBD - pending progress; OP Cardiac Rehab referral placed thru [facility]. SOPHY RM Rn-Workers Compensation Defense Attorney - 12/28/20 12:42:03 SOPHY RM Rn-Workers Compensation Defense Attorney - 01/11/2021 9:35 EDT documented in this encounter Plan of Treatment Not on file documented as of this encounter Visit Diagnoses Not on filedocumented in this encounter
--- OUTSIDE RECORDS SUMMARY | 2025-01-16 12:44 | XMS_ITS | Encounter Summary ---
Author Organization [facility] Address [address] [place] [address] Care Team Providers Care Frame Aligner Name Role Phone Unavailable Primary Care Provider Unavailabl e Encounter Details Date Type Department Care Team (Late st Contact Info) Description 01/05/2021 Transcribed Document [facility] [place] [address] [place] [address] ProviderMacrina MD [address] [place], [place] 384521 Social History Tobacco Use Types Packs/Day Years [...]
--- OUTSIDE RECORDS SUMMARY | 2025-01-16 12:44 | XMS_ITS | Encounter Summary ---
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 Veterans Adviser held pt's hand and provided patoral presence and prayer. Caodaism Preference : Christian Carroll Dudley Chaplain-Non Cert - 01/06/2021 7:34 EDT documented in this encounter Plan of Treatment Not on file documented as of this encounter Visit Diagnoses Not on filedocumented in this encounter
--- OUTSIDE RECORDS SUMMARY | 2025-01-16 12:44 | XMS_ITS | Encounter Summary ---
Author Organization [employer] [facility] Address [address] [place] [address] Care Team Providers Care Phys Therapist Name Role Phone Unavailable Primary Care Provider Unavailabl e Encounter Details Date Type Department Care Team (Late st Contact Info) Description 01/01/2021 Transcribed Document [facility] [place] [facility] [place] [address] ProviderMacrina MD [address] [place] [address] Social History Tobacco Use Types [...] available and we will continue to follow. /[id number] MD BECKY Moss/STACIE / BECKY / MODL /[id number] documented in this encounter Plan of Treatment Not on file documented as of this encounter Visit Diagnoses Not on filedocumented in this encounter
--- OUTSIDE RECORDS SUMMARY | 2025-01-16 12:44 | XMS_ITS | Encounter Summary ---
Author Organization [facility] In [facility]atives Address [address] [place] [address] Care Team Providers Care Latin American Studies Professor Name Role Phone Unavailable Primary Care Provider Unavailabl e Encounter Details Date Type Department Care Team (Late st Contact Info) Description 01/01/2021 Transcribed Document [facility] [place] Family Medicine [address] [place] [address] ProviderMacrina MD [address] [place] [address] Social History Tobacco Use Types Packs/Day Years [...] attempting to transition gtt to IV pump. Amber Paul, RN - 01/01/2021 19:54 EDT documented in this encounter Plan of Treatment Not on file documented as of this encounter Visit Diagnoses Not on filedocumented in this encounter
--- OUTSIDE RECORDS SUMMARY | 2025-01-16 12:44 | XMS_ITS | Encounter Summary ---
Author Organization [facility] [employer] [facility] Address [address] [place] [address] Care Team Providers Care Orthopedic Cast Specialist Name Role Phone Unavailable Primary Care Provider Unavailabl e Encounter Details Date Type Department Care Team (Late st Contact Info) Description 12/28/2020 Transcribed Document [facility] [place] [address] [place] [address] ProviderMacrina MD [address] [place] [address] Social History Tobacco Use Types [...] On: 12/28/2020 12:28 EDT by SOPHY RM Rn-Stave Log Ripsaw Operator Initial Assessment I Previously Documented Living Environment [...] Listed? : Yes Medical Durable Power of Malt Liquors Sales Representative Name : None Legal Guardian : No Is Guardianship Needed : No SOPHY RM Rn-Stave Log Ripsaw Operator - 12/28/2020 12:28 EDT Initial Assessment II Sensory and Motor Deficits : None Current Home Treatments and Equipment : Blood pressure monitor SOPHY RM Rn-Stave Log Ripsaw Operator - 12/28/2020 12:28 EDT Discharge Needs I Anticipated Discharge Date : 01/03/2021 EDT Anticipated Discharge To, CM : Home with family care, Home with home health, [facility] facility Current Home Treatment/Equipment : Current Home Treatment/Equipment No qualifying data available. Post Acute/Home Treatments : Blood pressure monitor Documentation Status Complete : Yes SOPHY RM Rn-Stave Log Ripsaw Operator - 12/28/2020 12:28 EDT Discharge Needs II Professional Skilled Services : Professional Skilled Services No qualifying data available. Services and Community Resources : Outpatient Cardiac Rehab Needs Assistance with Transportation : No Discharge Options Discussed with Patient : DME, Home Health, Outpatient services, Short term rehabilitation SOPHY RM Rn-Stave Log Ripsaw Operator - 12/28/2020 12:28 EDT Narrative Note Narrative [...] home health or short-term rehab. SOPHY RM Rn-Stave Log Ripsaw Operator - 12/28/2020 12:28 EDT documented in this encounter Plan of Treatment Not on file documented as of this encounter Visit Diagnoses Not on filedocumented in this encounter
--- OUTSIDE RECORDS SUMMARY | 2025-01-16 12:44 | XMS_ITS | Encounter Summary ---
Author Organization [facility] Address [address] [place] [address] Care Team Providers Care Gas Maker Name Role Phone Unavailable Primary Care Provider Unavailabl e Encounter Details Date Type Department Care Team (Late st Contact Info) Description 01/02/2021 Transcribed Document [facility] [place] [address] [place] [address] ProviderMacrina MD [address] [place] [address] Social History Tobacco Use Types Packs/Day Years [...]
--- OUTSIDE RECORDS SUMMARY | 2025-01-16 12:44 | XMS_ITS | Encounter Summary ---
Author Organization [facility] In iatives Address [address] [place] [address] Care Team Providers Care Automatic Log Cut Off Sawyer Name Role Phone Unavailable Primary Care Provider Unavailabl e Encounter Details Date Type Department Care Team (Late st Contact Info) Description 01/17/2021 Transcribed Document [facility] [place] Family Medicine [address] [place] [address] ProviderMacrina MD [address] [place], [place] 535041 Social History Tobacco Use Types Packs/Day Years [...] Mariana Walsh, SHYAM - 01/17/2021 11:03 EDT Electronically signed by Elmer joel Conversion Licensed Physical Therapy Assistant Cerner at 11/10/2022 9:21 AM CDT documented in this encounter Plan of Treatment Not on file documented as of this encounter Visit Diagnoses Not on filedocumented in this encounter
--- OUTSIDE RECORDS SUMMARY | 2025-01-16 12:44 | XMS_ITS | Encounter Summary ---
Author Organization [facility] Address [address] [place] [address] Care Team Providers Care Hazardous Substances Engineer Name Role Phone Unavailable Primary Care Provider Unavailabl e Encounter Details Date Type Department Care Team (Late st Contact Info) Description 01/09/2021 Transcribed Document [facility] [place] [address] [place] [address] ProviderMacrina MD [address], [place] [id number] Social History Tobacco Use Types Packs/Day Years [...] On: 01/09/2021 7:45 EDT by SOPHY RM Rn-Box LidderVessel Crew Member Progress Note Discharge Arrangements : Patient Post-Acute [...] : Clinical Condition of Patient SOPHY RM Rn-Box Lidder - 01/09/2021 7:45 EDT Narrative Progress Note [...] #12 - Electiv TAVR/LVentTear/Cardiac Tamponade SOPHY RM Rn-Box Lidder - 01/08/21 14:56:21 HD#12; ELOS 3; LRR; BOOST 6; POD #12 - Electiv TAVR/LVentTear/Cardiac Tamponade/Embolic Strokes w/ R side weakness; RA; IS/FVD encouraged; report pt with delerium/lethargy overnight - pulled out IV; PICC ordered today; R arm weakness; Corpak/TF - failed ST evaluation - improving; DCP Rehab; continue to follow SOPHY RM Rn-Box Lidder - 01/08/21 14:58:32 HD#11; ELOS 3; MRR; BOOST 6; POD#11 - Elective TAVR/LVentTear/Cardiac Tamponade; 02=2L; Maxipime/Ancef; IV Bumex; working w/therapy and stood at side of bed; SOPHY RM, Rn-Box Lidder - 01/07/21 14:34:53 HD#11; ELOS 3; MRR; BOOST 6; POD#11 - Elective TAVR/LVentTear/Cardiac Tamponade; 02=2L; Maxipime/Ancef; IV Bumex; working w/therapy and stood at side of bed; ST - ongoing rec for NPO r/t dysphagia - tx; instrumental 3-4 days; Corpak/TF; DCP anticipate rehab; initial referrals placed thru [facility] and list w/post acute star ratings provided to pt for choicing. SOPHY RM Rn-Box Lidder - 01/07/21 14:36:37 HD#8; ELOS 3; LRR; BOOST 6; POD#8 - Elec TAVR/LVentTear/Cardiac Tamponade - intubated fi02 100; awake/calm/following commands; bronchoscopy scheduled today; SBT; T=101.2; MRI - diffuse scattered bilateral infarcts; Dr. Navarro states during MDR that if pt is unable to successfully wean over weekend will need trach/peg consult on Thursday; continue to follow; will need therapy evaluations when extubated. SOPHY RM Rn-Box Lidder - 01/04/21 15:16:12 HD#7; ELOS 3; LRR; BOOST 6; POD#7 - Elective TAVR/LVentTear/CardiacTamponade/Arrest - intubated fi02 40/peep 8; SBT x 2 hr; Fent/Precedex gtt; Corpak/TF; Humza CT in place; Neurology following - MRI diffuse scattered bilateral infarcts; pt w/improvement in movement of R side; PT/OT evaluations when extubated; DCP TBD - likely rehab. SOPHY RM Rn-Box Lidder - 01/03/21 15:03:09 HD#6; ELOS 3; LRR; BOOST 6; POD #6 - Electiv TAVR/L Vent Tear/Cardiac Tamponode/Arrest - reintubated 01/01; fi02 40; Levo/Fent/Precedex gtt; wean sedation - on SBT 2hr TID; T=99.9; Dr. Navarro states during MDR that pt's spouse aware may need trach/peg; DCP TBD pending progress. SOPHY RM Rn-Box Lidder - 01/02/21 14:55:12 HD#5; ELOS 3; LRR; BOOST 6; POD #5 - Elective TAVR/L Ventrial Tear/Cardiac Tamponode; extubated on 12/31 required reintubation today fi02 60/peep 8; Precedex/Fent gtt; Corpak/TF; IV Zosyn; CT draining; T=100; DCP TBD pending progress; will need therapy evals when appropriate. SOPHY RM Rn-Box Lidder - 01/01/21 14:47:57 HD#4; ELOS 3; LRR; POD#4 - Electiv TAVR; L Ventrical Tear; intubated fi02 50; Cardene gtt; Corpak to be placed and TF initiated; SBT today; following commands; Head MRI ordered; possible extubation post MRI; no movement noted on R side; will need PT/OT evaluations when extubated; DCP pending progress - likely rehab. SOPHY RM Rn-Box Lidder - 12/31/20 14:58:43 DCP TBD - pending progress; OP Cardiac Rehab referral placed thru [facility]. SOPHY RM Rn-Box Lidder - 12/28/20 12:42:03 SOPHY RM Rn-Box Lidder - 01/09/2021 7:45 EDT documented in this encounter Plan of Treatment Not on file documented as of this encounter Visit Diagnoses Not on filedocumented in this encounter
--- OUTSIDE RECORDS SUMMARY | 2025-01-16 12:44 | XMS_ITS | Encounter Summary ---
Author Organization [facility] [employer] In iatives Address [address] [place] [address] Care Team Providers Care Asset Recovery Specialist Name Role Phone Unavailable Primary Care Provider Unavailabl e Encounter Details Date Type Department Care Team (Late st Contact Info) Description 12/28/2020 Transcribed Document [facility] [place] [address] [place] [address] ProviderMacrina MD [address] [place], [place] [address]771 Social History Tobacco Use Types Packs/Day Years Used Date Smoking Tobacco: Never Assessed Sex and Gender Information Value Date Recorded Sex Assigned at Not on file Legal Sex Male 1:13 PM CDT Gender Identity Not on file Sexual Orientation Not on file documented as of this encounter Miscellaneous Notes * Cerner Conversion Note - Historical ProviderMD - 12/28/2020 2:00 AM CDT Furnace Converter Details Entered On: 12/28/2020 3:44 EDT Performed [...]
--- OUTSIDE RECORDS SUMMARY | 2025-01-16 12:44 | XMS_ITS | Encounter Summary ---
Author Organization [facility] In [facility]atives Address [address] [place] [address] Care Team Providers Care Riding Teacher Name Role Phone Unavailable Primary Care Provider Unavailabl e Encounter Details Date Type Department Care Team (Late st Contact Info) Description 01/05/2021 Transcribed Document [facility] Pulm & Critical Care Medicine [address] [place] [address] [address] [place] [address] Erick Navarro MD [address] [facility] [address] [place] [address] Social History Tobacco Use Types [...] 0.5 MCG/KG/. Awake and following commands, positive band builder in bilateral hands. MRI brain yesterday revealed [...] Medical Aortic valve stenosis / SNOMED CT 530849676 / Confirmed At risk for sleep apnea / IMO 54005735 / Confirmed Colorectal surgery / SNOMED CT 4867014791 / Confirmed HTN - Hypertension / SNOMED CT 1674713290 / Confirmed, Active Problems (13) Aortic stenosis, [...] 75.6 LOW 01/04/2021 08:09 HCO3 Art 28.7 NV 01/04/2021 08:09 BE Art 4.5 NV 01/04/2021 08:09 sO2 Art 96.5 01/04/2021 05:03 [...] 01/04/2021 05:03 Radiology Results (Last 48 hours) [id number] -- 12/27/2020 06:39 CR Chest 1 Vw [...] dependent pleural effusions. Small on theleft and [id number] on the right side. These are associated [...] team, including critical care team, CCRN, RT., Boat Canvas Maker And Installer , case management and clinical pharmacist. I [...]
--- OUTSIDE RECORDS SUMMARY | 2025-01-16 12:44 | XMS_ITS | Encounter Summary ---
Author Organization [facility] [employer] [facility] Address [address] [place] [address] Care Team Providers Care Gift Consultant Name Role Phone Unavailable Primary Care Provider Unavailabl e Encounter Details Date Type Department Care Team (Late st Contact Info) Description 01/04/2021 Transcribed Document [facility] [place] [address] [place] [address] ProviderMacrina MD [address] [place] [address] Social History Tobacco Use Types [...] On: 01/04/2021 15:13 EDT by SOPHY RM Rn-Valet ParkerBroadcast Engineer Progress Note Discharge Arrangements : Patient Post-Acute [...] : Clinical Condition of Patient SOPHY RM Rn-Valet Parker - 01/04/2021 15:13 EDT Narrative Progress Note [...] DCP TBD - likely rehab. SOPHY RM Rn-Valet Parker - 01/03/21 15:03:09 HD#6; ELOS 3; LRR; BOOST 6; POD #6 - Electiv TAVR/L Vent Tear/Cardiac Tamponode/Arrest - reintubated 01/01; fi02 40; Levo/Fent/Precedex gtt; wean sedation - on SBT 2hr TID; T=99.9; Dr. Navarro states during MDR that pt's spouse aware may need trach/peg; DCP TBD pending progress. SOPHY RM Rn-Valet Parker - 01/02/21 14:55:12 HD#5; ELOS 3; LRR; BOOST 6; POD #5 - Elective TAVR/L Ventrial Tear/Cardiac Tamponode; extubated on 12/31 required reintubation today fi02 60/peep 8; Precedex/Fent gtt; Corpak/TF; IV Zosyn; CT draining; T=100; DCP TBD pending progress; will need therapy evals when appropriate. SOPHY RM Rn-Valet Parker - 01/01/21 14:47:57 HD#4; ELOS 3; LRR; POD#4 - Electiv TAVR; L Ventrical Tear; intubated fi02 50; Cardene gtt; Corpak to be placed and TF initiated; SBT today; following commands; Head MRI ordered; possible extubation post MRI; no movement noted on R side; will need PT/OT evaluations when extubated; DCP pending progress - likely rehab. SOPHY RM Rn-Valet Parker - 12/31/20 14:58:43 DCP TBD - pending progress; OP Cardiac Rehab referral placed thru [facility]. SOPHY RM Rn-Valet Parker - 12/28/20 12:42:03 SOPHY RM Rn-Valet Parker - 01/04/2021 15:13 EDT documented in this encounter Plan of Treatment Not on file documented as of this encounter Visit Diagnoses Not on filedocumented in this encounter
--- OUTSIDE RECORDS SUMMARY | 2025-01-16 12:44 | XMS_ITS | Encounter Summary ---
Author Organization [facility] Address [address] [place] [address] Care Team Providers Care Delivery And Installation Subcontractor Name Role Phone Unavailable Primary Care Provider Unavailabl e Encounter Details Date Type Department Care Team (Late st Contact Info) Description 01/15/2021 Transcribed Document [facility] [place] Family [place] [facility] [address] ProviderMacrina MD [address] [place] [address] Social History Tobacco Use [...] 1012. 01/02/21: POD#6 Intubated and sedated on Yhnadazs398kft/hr and Precedex .6mcg/kg/min. He is also on [...] 2L/NC TF 50ml/hr Continue P.T. Transfer to [facility] Pt will need rehab when clinically ready 01/11/21 POD#15 O2 91% 2L/NC TF 50ml/hr Continue P.T. Awaiting transfer to [facility] 01/12/2021 POD #16 Continues tube feedings, tolerating Steady progress 01/13/2021 POD #17 ALINA Spence Will need rehab placement 01/14/2021 POD #18 Patient still not cleared for PO [facility] has accepted the patient, but he needs a PEG. Will consult general surgery for PEG placement prior to transfer to [facility] 01/15/2021 POD #19 Planning to repeat swallow evaluation. Depending on results, may require PEG prior to transfer to [facility]. Diagnosis Anxiety - Pre-Op Diagnosis, Medical. [...]
--- OUTSIDE RECORDS SUMMARY | 2025-01-16 12:44 | XMS_ITS | Encounter Summary ---
Author Organization [facility] Address [address] [place] [address] Care Team Providers Care Crown Buffer Name Role Phone Unavailable Primary Care Provider Unavailabl e Encounter Details Date Type Department Care Team (Late st Contact Info) Description 01/09/2021 Transcribed Document [facility] [place] [facility] [place] [address] ProviderMacrina MD [address] [place], [place] [address] Social History Tobacco Use Types Packs/Day Years [...] 0.5 MCG/KG/. Awake and following commands, positive direct support specialist in bilateral hands. MRI brain yesterday revealed [...] 180s. 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; legal secretary and moves extremities bilaterally but weaker on [...] Problems Aortic valve stenosis / SNOMED CT 965759014 / Confirmed Arthritis of right knee / SNOMED CT 5688990813 / Confirmed At risk for sleep apnea / IMO 34598049 / Confirmed At risk for violence / IMO 13622300 / Confirmed Chronic anxiety / SNOMED CT 456417368 / Confirmed Back pain, chronic / SNOMED CT 395892322 / Confirmed Colorectal surgery / SNOMED CT 3184981497 / Confirmed Disorder of prostate / SNOMED CT 43726992 / Confirmed GERD - Gastro-esophageal reflux disease / SNOMED CT 3900229481 / Confirmed H/O peripheral neuropathy / SNOMED CT 069993899 / Confirmed feet tingle all the time HTN - Hypertension / SNOMED CT 5625800008 / Confirmed Hyperlipidemia / SNOMED CT 69641467 / Confirmed Hypertension / SNOMED CT 90002047 / Confirmed Aortic stenosis, severe / SNOMED CT 6730435251 / Confirmed Resolved: Cancer of colon / SNOMED CT 7851923451, Active Problems (14) Aortic stenosis, severe Aortic [...] 13) PTN L 6.2 (CESAR 16) 6.8 (CESAR 15) L 6.1 (CESAR [...] 24 Hours) Radiology Results (Last 48 hours) [id number] -- 12/27/2020 06:39 CR Chest 1 Vw [...] reviewed, interpreted, and dictated by Dr. Brayan rPatt.Transcribed by Enrique Stinson PA-C.I have personally viewed, [...]
--- OUTSIDE RECORDS SUMMARY | 2025-01-16 12:44 | XMS_ITS | Encounter Summary ---
Author Organization [facility] In iatives Address [address] [place] [address] Care Team Providers Care Fire Range Technician Name Role Phone Unavailable Primary Care Provider Unavailabl e Encounter Details Date Type Department Care Team (Late st Contact Info) Description 01/06/2021 Transcribed Document [facility] [place] [address] [place] [address] ProviderMacrina MD [address] [place], [place] 948111 Social History Tobacco Use Types Packs/Day Years [...]
--- OUTSIDE RECORDS SUMMARY | 2025-01-16 12:44 | XMS_ITS | Encounter Summary ---
Author Organization [facility] Address [address] [place] [address] Care Team Providers Care Chronometer Tester Name Role Phone Unavailable Primary Care Provider Unavailabl e Encounter Details Date Type Department Care Team (Late st Contact Info) Description 01/11/2021 Transcribed Document [facility] [place] [facility] [place] [address] ProviderMacrina MD [address] [place] [address] Social History Tobacco Use Types [...] 0.5 MCG/KG/. 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 MRI brain yesterday revealed [...] 180s. 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 on [...] Problems Aortic valve stenosis / SNOMED CT 472628078 / Confirmed Arthritis of right knee / SNOMED CT 1656969491 / Confirmed At risk for sleep apnea / IMO 43131889 / Confirmed At risk for violence / IMO 04406938 / Confirmed Chronic anxiety / SNOMED CT 197612967 / Confirmed Back pain, chronic / SNOMED CT 144352149 / Confirmed Colorectal surgery / SNOMED CT 5608904820 / Confirmed Disorder of prostate / SNOMED CT 17515798 / Confirmed GERD - Gastro-esophageal reflux disease / SNOMED CT 9874357826 / Confirmed H/O peripheral neuropathy / SNOMED CT 581384551 / Confirmed feet tingle all the time HTN - Hypertension / SNOMED CT 9274697553 / Confirmed Hyperlipidemia / SNOMED CT 29371136 / Confirmed Hypertension / SNOMED CT 71576144 / Confirmed Aortic stenosis, severe / SNOMED CT 9180783707 / Confirmed Resolved: Cancer of colon / SNOMED CT 6558979522, Active Problems (14) Aortic stenosis, severe Aortic [...] 24 Hours) Radiology Results (Last 48 hours) [id number] -- 12/27/2020 06:39 CR Chest 1 Vw [...] dictated by Dr. Christiano Gurrola.Transcribed by Jo Lwoe (R)Darrell (R).I have personally viewed, interpreted and [...]
--- OUTSIDE RECORDS SUMMARY | 2025-01-16 12:44 | XMS_ITS | Encounter Summary ---
Author Organization [employer] In [employer] Address [address] [place] [address] Care Team Providers Care Town Justice Name Role Phone Unavailable Primary Care Provider Unavailabl e Encounter Details Date Type Department Care Team (Late st Contact Info) Description 01/01/2021 Transcribed Document [facility] Pulm & Critical Care Medicine [address] [place] [address] [address] [place] [address] Erick Navarro MD [address] [facility] [address] [place] [address] Social History Tobacco Use Types [...] team, including critical care team, CCRN, RT., Metal Control Coordinator , case management and clinical pharmacist. I [...]
--- OUTSIDE RECORDS SUMMARY | 2025-01-16 12:44 | XMS_ITS | Encounter Summary ---
Author Organization [facility] In iatives Address [address] [place] [address] Care Team Providers Care Smoke Jumper Name Role Phone Unavailable Primary Care Provider Unavailabl e Encounter Details Date Type Department Care Team (Late st Contact Info) Description 01/05/2021 Transcribed Document [facility] Cardiology [address] [place] [address] Danyelle Gomez MD [address] [facility] [address] [place] [id number] Social History Tobacco Use Types Packs/Day Years [...] Basic Information PCP: Robert Batista MD Primary Game Trapper: Danyelle Gomez MD Subjective Patient seen and [...] Medical Aortic valve stenosis / SNOMED CT 097639318 / Confirmed At risk for sleep apnea / IMO 80841120 / Confirmed Colorectal surgery / SNOMED CT 7928324199 / Confirmed HTN - Hypertension / SNOMED CT 3685670948 / Confirmed, Active Problems (13) Aortic stenosis, [...] 24 Hours) Radiology Results (Last 48 hours) [id number] -- 12/27/2020 06:39 CR Chest 1 Vw [...] dependent pleural effusions. Small on theleft and [id number] on the right side. These are associated [...] and Plan IMPRESSION: Aortic stenosis, severe [facility]15/19 [facility] no obstructive disease. BAV 09/19/19 - ECHO EF 40%. severe aortic stenosis peak P mean P.83 s/p TAVR 12/27/2020. Apical perforation/Acute tamponade s/p pericardiocentesis and surgical repair of LV Eustace. PEA Arrest; CODE called 10 minutes to [...]
--- OUTSIDE RECORDS SUMMARY | 2025-01-16 12:44 | XMS_ITS | Encounter Summary ---
Author Organization [facility] Address [address] [place] [address] Care Team Providers Care Buffer Inflated Pad Name Role Phone Unavailable Primary Care Provider Unavailabl e Encounter Details Date Type Department Care Team (Late st Contact Info) Description 01/17/[address] [facility] [place] Family Medicine [address] [place] [address] ProviderMacrina MD [address] [place] [address] Social History Tobacco Use Types Packs/Day Years [...] Spiritual Care Spiritual Care Referred by : Chiropractor Assistant initiated Reason for Visit : Follow Up Ministry Provided to : Patient Intervention/Comment/Summary Points : Provided pre-surgery visit and prayer. Jehovah'S Witness Preference : Caodaism BRISSA SULLIVAN - 01/17/2021 9:23 EDT documented in this encounter Plan of Treatment Not on file documented as of this encounter Visit Diagnoses Not on filedocumented in this encounter
--- OUTSIDE RECORDS SUMMARY | 2025-01-16 12:44 | XMS_ITS | Encounter Summary ---
Author Organization [facility] In iatives Address [address] [place] [address] Care Team Providers Care Fire Prevention Inspector Name Role Phone Unavailable Primary Care Provider Unavailabl e Encounter Details Date Type Department Care Team (Late st Contact Info) Description 01/11/2021 Transcribed Document [facility] [place] [address] [place] [address] ProviderMacrina MD [address] [place] [address] Social History Tobacco Use [...] Historical ProviderMD - 01/11/2021 2:00 AM CDT Television Parts Tester Details Entered On: 01/11/2021 2:55 EDT Performed [...] Non Emp RN - 01/11/2021 2:55 EDT documented in this encounter Plan of Treatment Not on file documented as of this encounter Visit Diagnoses Not on filedocumented in this encounter
--- OUTSIDE RECORDS SUMMARY | 2025-01-16 12:44 | XMS_ITS | Encounter Summary ---
Author Organization [facility] Address [address] [place] [address] Care Team Providers Care Prototype Special Build Name Role Phone Unavailable Primary Care Provider Unavailabl e Encounter Details Date Type Department Care Team (Late st Contact Info) Description 12/28/2020 Transcribed Document [facility] Family Medicine [facility] [place] [address] ProviderMacrina MD [address] [place], [place] [id number] Social History Tobacco Use Types Packs/Day Years [...] At risk for sleep apnea / IMO 20233587 / Confirmed Colorectal surgery / SNOMED CT 9582773286 / Confirmed Aortic valve stenosis / SNOMED CT 307271922 / Confirmed HTN - Hypertension / SNOMED CT 3894753317 / Confirmed, Active Problems (13) Aortic stenosis, [...] 01) ALK P 53 (CESAR 04) 46 (CEASR 03) 76 (CESAR 03) 107 (CESAR 01) [...] 7.365 12/27/2020 17:54 pCO2 Art POC 54.2 AL 12/27/2020 22:07 pO2 Art POC 141.0 AL 12/27/2020 22:07 HCO3 Art POC 31.0 HI 12/27/2020 22:05 tCO2 Art POC 33.0 HI 12/27/2020 22:06 BE Art POC 6.0 AL 12/27/2020 22:06 sO2 Art POC 99.0 AL 12/27/2020 22:07 ABG Num of Draw Attempts 1 NA 12/28/2020 04:43 PaO2/FiO2 calculated 313 NA 12/28/2020 04:43 Radiology Results (Last 48 hours) [id number] -- 12/27/2020 06:39 CR Chest 1 Vw [...] spent on this patient is 77 minutes documented in this encounter Plan of Treatment Not on file documented as of this encounter Visit Diagnoses Not on filedocumented in this encounter
--- OUTSIDE RECORDS SUMMARY | 2025-01-16 12:44 | XMS_ITS | Encounter Summary ---
Author Organization [facility] Address [address] [place] [address] Care Team Providers Care Breaker Tender Name Role Phone Unavailable Primary Care Provider Unavailabl e Encounter Details Date Type Department Care Team (Late st Contact Info) Description 01/05/2021 Transcribed Document [facility] Family Medicine [facility] [place] [address] ProviderMacrina MD [address] [place], [place] [id number] Social History Tobacco Use Types Packs/Day Years Used Date Smoking Tobacco: Never Assessed Sex and Gender Information Value Date Recorded Sex Assigned at Not on file Legal Sex Male 1:13 PM CDT Gender Identity Not on file Sexual Orientation Not on file documented as of this encounter Miscellaneous Notes * Cerner Conversion Note - Macrina Cordova MD - 01/05/2021 9:09 AM CDT Patient: JOES ADORNO Age: 80 years Sex: Male : [...] 1012. 01/02/21: POD#6 Intubated and sedated on Cnnzuglr171fet/hr and Precedex .6mcg/kg/min. He is also on [...] At risk for sleep apnea / IMO 18660219 / Confirmed Colorectal surgery / SNOMED CT 9444651715 / Confirmed Aortic valve stenosis / SNOMED CT 340706886 / Confirmed HTN - Hypertension / SNOMED CT 5480643696 / Confirmed, Active Problems (13) Aortic stenosis, [...] Non-distended, Normal bowel sounds. Integumentary: Warm, Dry, [place]. Neurologic: The pt is able to move [...] Pre-Op Diagnosis, Medical. Electronically signed by Elmer [facility] Conversion Toxics Program Officer Cerner at 11/10/2022 9:08 AM CDT documented in this encounter Plan of Treatment Not on file documented as of this encounter Visit Diagnoses Not on filedocumented in this encounter
--- OUTSIDE RECORDS SUMMARY | 2025-01-16 12:44 | XMS_ITS | Encounter Summary ---
Author Organization [facility] In iatives Address [address] [place] [address] Care Team Providers Care Hospitalist Program Director Name Role Phone Unavailable Primary Care Provider Unavailabl e Encounter Details Date Type Department Care Team (Late st Contact Info) Description 12/28/2020 Transcribed Document [facility] [place] Family Medicine [address] [place] [address] ProviderMacrina MD [address] [place] [address] Social History Tobacco Use Types [...] Feelings expressed, Hope strengths identified Spiritual and Denominational : Prayer shared, Spiritual/Denominational support provided BRISSA SULLIVAN 12/28/2020 14:05 EDT documented in this encounter Plan of Treatment Not on file documented as of this encounter Visit Diagnoses Not on filedocumented in this encounter
--- OUTSIDE RECORDS SUMMARY | 2025-01-16 12:44 | XMS_ITS | Encounter Summary ---
Author Organization [facility] In iatives Address [address] [place] [address] Care Team Providers Care Permit Specialist Name Role Phone Unavailable Primary Care Provider Unavailabl e Encounter Details Date Type Department Care Team (Late st Contact Info) Description 01/11/2021 Transcribed Document [facility] [place] Family Medicine [address] [place] [address] ProviderMacrina MD [address] [place], [place] 1622[address] Social History Tobacco Use Types Packs/Day Years [...] All Active Orders Reviewed : Yes Jaja Jerngian Non Emp RN - 01/11/2021 5:19 EDT documented in this encounter Plan of Treatment Not on file documented as of this encounter Visit Diagnoses Not on filedocumented in this encounter
--- OUTSIDE RECORDS SUMMARY | 2025-01-16 12:44 | XMS_ITS | Encounter Summary ---
Author Organization [facility] [employer] In [facility] Address [address] [place] [address] Care Team Providers Care Hot Dipper Name Role Phone Unavailable Primary Care Provider Unavailabl e Encounter Details Date Type Department Care Team (Late st Contact Info) Description 01/05/2021 Transcribed Document [facility] [place] Family Medicine [address] [place] [address] ProviderMacrina MD [address] [place] [address] Social History Tobacco Use Types [...] mg= 2 mL, IV Push, Q4H, PRN Electronically signed by Olinda Payne Conversion Screen Printing Loader Unloader Cerner at 11/10/2022 9:20 AM CDT documented in this encounter Plan of Treatment Not on file documented as of this encounter Visit Diagnoses Not on filedocumented in this encounter
--- OUTSIDE RECORDS SUMMARY | 2025-01-16 12:44 | XMS_ITS | Encounter Summary ---
Author Organization [facility] Address [address] [place] [address] Care Team Providers Care Environmental Education Specialist Name Role Phone Unavailable Primary Care Provider Unavailabl e Encounter Details Date Type Department Care Team (Late st Contact Info) Description 01/06/2021 Transcribed Document [facility] [place] [facility] [place] [address] ProviderMacrina MD [address] [place], [place] [id number] Social History Tobacco Use Types Packs/Day Years [...] 1012. 01/02/21: POD#6 Intubated and sedated on Dttzudxb885ycr/hr and Precedex .6mcg/kg/min. He is also on [...] At risk for sleep apnea / IMO 47007241 / Confirmed Colorectal surgery / SNOMED CT 4965278828 / Confirmed Aortic valve stenosis / SNOMED CT 682605924 / Confirmed HTN - Hypertension / SNOMED CT 8079386116 / Confirmed, Active Problems (13) Aortic stenosis, [...] Non-distended, Normal bowel sounds. Integumentary: Warm, Dry, [place]. Neurologic: The pt is able to move [...] Pre-Op Diagnosis, Medical. Electronically signed by Elmer [facility] Conversion Quarry Plug And Feather Driller Cerner at 11/10/2022 9:29 AM CDT documented in this encounter Plan of Treatment Not on file documented as of this encounter Visit Diagnoses Not on filedocumented in this encounter
--- OUTSIDE RECORDS SUMMARY | 2025-01-16 12:44 | XMS_ITS | Encounter Summary ---
Author Organization [facility] [employer] In iatives Address [address] [place] [address] Care Team Providers Care Carbonation Equipment Tender Name Role Phone Unavailable Primary Care Provider Unavailabl e Encounter Details Date Type Department Care Team (Late st Contact Info) Description 01/09/2021 Transcribed Document [facility] [place] Family Medicine [address] [place] [address] ProviderMacrina MD [address] [place] [address] Social History Tobacco Use Types [...] Ministry Provided to : Patient, Family/Significant other Muslim Preference : Baptism LAVERN VALDIVIA Chaplain - 01/09/2021 20:33 EDT [...]
--- OUTSIDE RECORDS SUMMARY | 2025-01-16 12:44 | XMS_ITS | Encounter Summary ---
Author Organization [facility] Address [address] [place] [address] Care Team Providers Care Sharepoint Engineer Name Role Phone Unavailable Primary Care Provider Unavailabl e Encounter Details Date Type Department Care Team (Late st Contact Info) Description 01/15/[address] [facility] [place] Family Medicine [address] [place] [address] ProviderMacrina MD [address] [place], [place] 229171 Social History Tobacco Use Types Packs/Day Years [...] On: 01/15/2021 17:00 EDT by Pavel Rizvi, Gas Or Water Meter Installer-Student Nurse Chart Check Powerplans Initiated/Discontinued as Appropriate : Not applicable All Active Orders Reviewed : Yes Pavel Rizvi, Gas Or Water Meter Installer-Student Nurse - 01/15/2021 15:02 EDT Electronically signed by Elmer [facility] Conversion Circulation Assistant Cerner at 11/10/2022 9:27 AM CDT documented in this encounter Plan of Treatment Not on file documented as of this encounter Visit Diagnoses Not on filedocumented in this encounter
--- OUTSIDE RECORDS SUMMARY | 2025-01-16 12:44 | XMS_ITS | Encounter Summary ---
Author Organization [facility] Address [address] [place] [address] Care Team Providers Care Commissioner Of Relocation Services Name Role Phone Unavailable Primary Care Provider Unavailabl e Encounter Details Date Type Department Care Team (Late st Contact Info) Description 12/28/2020 Transcribed Document [facility] [place] [facility] [place] [address] ProviderMacrina MD [address] [place], [place] [id number] Social History Tobacco Use Types Packs/Day Years [...] S1, S2, No edema. Integumentary: Warm, Dry, Brenda. Review / Management Results review: DEC 28 [...] HI 12/27/2020 22:06 BE Art POC 6.0 MT 12/27/2020 22:06 sO2 Art POC 99.0 MT 12/27/2020 22:07 ABG Num of Draw Attempts 1 NA 12/28/2020 04:43 PaO2/FiO2 calculated 313 NA 12/28/2020 04:43 Coagulation Results (Current Encounter/Past 24 Hours) PT 11.4 Second(s) 12/28/2020 05:41 PTT 62.4 Second(s) MT 12/27/2020 17:59 INR 1.1 12/28/2020 05:41 . [...]
--- OUTSIDE RECORDS SUMMARY | 2025-01-16 12:44 | XMS_ITS | Encounter Summary ---
Author Organization [facility] Address [address] [place] [address] Care Team Providers Care Dressed Poultry Grader Name Role Phone Unavailable Primary Care Provider Unavailabl e Encounter Details Date Type Department Care Team (Late st Contact Info) Description 12/27/2020 Transcribed Document [facility] [address] [place] [address] ProviderMacrina MD [address] [place] [address] Social History Tobacco Use [...] performed using a micropuncture technique. Ultimately, a 6-Australian sheath was inserted into the right femoral artery. Two Perclose were deployed in a preclose fashion, and the sheath was then upsized to an 8-Australian. Using a similar technique, a 6-Australian sheath was inserted into the left femoral artery, and a 6-Australian sheath was inserted into the left femoral vein. A 5-Australian transvenous pacemaker was inserted through the venous sheath and was then advanced under fluoroscopic guidance to the right ventricular free wall. Pacing capture was confirmed. A 5-Australian pigtail catheter was then advanced through the left femoral arterial sheath and was positioned in the right coronary cusp. Supravalvular aortography was then performed. The cold planar view was confirmed. The Amplatz Extra Stiff wire was then inserted through the 8-Australian sheath into the arterial system. The 8-Australian sheath was then subsequently removed. After sequential dilatation of the tissue tract, ultimately a 16-Australian Vivas eSheath was inserted without difficulty. The patient was systemically heparinized and adequate ACT was obtained. Over the Extra Stiff Amplatz wire, a 6-Australian AL1 diagnostic catheter was placed and was [...] to the intensive care unit for monitoring. /[id number] MD MICHAEL Carrington/STACIE / HRM / MODL /[id number] CC: MD Steve Carrington MD Electronically signed by [facility], [facility] Conversion Retail Service Representative Cerner at 11/10/2022 9:03 AM CDT documented in this encounter Plan of Treatment Not on file documented as of this encounter Visit Diagnoses Not on filedocumented in this encounter
--- OUTSIDE RECORDS SUMMARY | 2025-01-16 12:44 | XMS_ITS | Encounter Summary ---
Author Organization [facility] In [facility] Address [address] [place] [address] Care Team Providers Care Event Organizer Name Role Phone Unavailable Primary Care Provider Unavailabl e Encounter Details Date Type Department Care Team (Late st Contact Info) Description 12/28/2020 Transcribed Document [facility] Family Medicine [address] [place] [address] ProviderMacrina MD [address] [place], [place] 0311[address] Social History Tobacco Use Types Packs/Day Years [...]
--- OUTSIDE RECORDS SUMMARY | 2025-01-16 12:44 | XMS_ITS | Encounter Summary ---
Author Organization [facility] Address [address] [place] [address] Care Team Providers Care Dean Of Education Name Role Phone Unavailable Primary Care Provider Unavailabl e Encounter Details Date Type Department Care Team (Late st Contact Info) Description 01/05/2021 Transcribed Document [facility] [place] Family Medicine [address] [place] [address] ProviderMacrina MD [address] [place], [place] [address]481 Social History Tobacco Use Types Packs/Day Years [...]
--- OUTSIDE RECORDS SUMMARY | 2025-01-16 12:44 | XMS_ITS | Encounter Summary ---
Author Organization [facility] Address [address] [place] [address] Care Team Providers Care Diamond Die Polisher Name Role Phone Unavailable Primary Care Provider Unavailabl e Encounter Details Date Type Department Care Team (Late st Contact Info) Description 01/17/2021 Transcribed Document [facility] [place] Family Medicine [address] [place] [address] ProviderMacrina MD [address] [place] [address] Social History Tobacco Use Types Packs/Day Years Used Date Smoking Tobacco: Never Assessed Sex and Gender Information Value Date Recorded Sex Assigned at Not on file Legal Sex Male 1:13 PM CDT Gender Identity Not on file Sexual Orientation Not on file documented as of this encounter Miscellaneous Notes * Cerner Conversion Note - Macrina ProviderMD - 01/17/2021 3:30 PM CDT [facility] Main OR Preop Summary Primary Physician: PEYTON BEATTY MD Finalized Date/Time: 01/17/21 11:00:37 Pt. Name: HUONG JOSE L /Sex: 1940 Male Med Rec #: [id number] Physician: DANYELLE WALTERS MD-[facility] Financial #: [id number] Pt. Type: I Room/Bed: 317/1 Admit/Disch: 12/27/20 06:39:00 - Institution: [facility] PreOp Case Times Entry 1 In Preop 01/17/21 10:32:00 Ready for Holding n/a Room Patient Ready for 01/17/21 10:58:00 Surgery Patient Out of Preop 01/17/21 10:59:00 Patient Out of n/a Holding Room Last Modified By: Mariana Walsh, SHYAM 01/17/21 10:59:54 Finalized By: Mariana Walsh RN Document Signatures Signed By: Mariana Walsh RN 01/17/21 11:00 Electronically signed by Elmer [facility] Conversion Director Of Marketing Google Performance Ads Cerner at 11/10/2022 9:16 AM CDT documented in this encounter Plan of Treatment Not on file documented as of this encounter Visit Diagnoses Not on filedocumented in this encounter
--- OUTSIDE RECORDS SUMMARY | 2025-01-16 12:44 | XMS_ITS | Encounter Summary ---
Author Organization [facility] In [facility] Address [address] [place] [address] Care Team Providers Care Paint Pourer Name Role Phone Unavailable Primary Care Provider Unavailabl e Encounter Details Date Type Department Care Team (Late st Contact Info) Description 01/10/[address] [facility] [place] Family Medicine [facility] [place] [address] ProviderMacrina MD [address] [place] [address] Social History Tobacco Use Types [...] 0.5 MCG/KG/. 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 MRI brain yesterday [...] 180s. 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 but weaker on [...] Problems Aortic valve stenosis / SNOMED CT 111110966 / Confirmed Arthritis of right knee / SNOMED CT 4400119966 / Confirmed At risk for sleep apnea / IMO 18608833 / Confirmed At risk for violence / IMO 23230140 / Confirmed Chronic anxiety / SNOMED CT 192958025 / Confirmed Back pain, chronic / SNOMED CT 782176334 / Confirmed Colorectal surgery / SNOMED CT 1516063614 / Confirmed Disorder of prostate / SNOMED CT 86402557 / Confirmed GERD - Gastro-esophageal reflux disease / SNOMED CT 7250082620 / Confirmed H/O peripheral neuropathy / SNOMED CT 945421708 / Confirmed feet tingle all the time HTN - Hypertension / SNOMED CT 2993297110 / Confirmed Hyperlipidemia / SNOMED CT 34950302 / Confirmed Hypertension / SNOMED CT 12750820 / Confirmed Aortic stenosis, severe / SNOMED CT 5505866357 / Confirmed Resolved: Cancer of colon / SNOMED CT 4317598568, Active Problems (14) Aortic stenosis, severe Aortic [...] 14) PTN 6.5 (CESAR 17) L 6.2 (CESAR 16) 6.8 (CESAR 15) L 6.1 (CESAR 14) ALB L 2.5 (CESAR 17) L 2.4 (ECSAR 16) L 2.7 (CESAR 15) L 2.4 [...] 24 Hours) Radiology Results (Last 48 hours) [id number] -- 12/27/2020 06:39 CR Chest 1 Vw [...]
--- OUTSIDE RECORDS SUMMARY | 2025-01-16 12:44 | XMS_ITS | Encounter Summary ---
Author Organization [employer] [facility] Address [address] [place] [address] Care Team Providers Care Order Processor Name Role Phone Unavailable Primary Care Provider Unavailabl e Encounter Details Date Type Department Care Team (Late st Contact Info) Description 01/09/2021 Transcribed Document [facility] [place] Family Medicine [address] [place] [address] ProviderMacrina MD [address] [place] [address] Social History Tobacco Use Types [...] 8:11 EDT Heart Rate Monitored 106 bpm AL 01/09/2021 6:45 EDT Systolic Blood Pressure 129 [...]
--- OUTSIDE RECORDS SUMMARY | 2025-01-16 12:44 | XMS_ITS | Encounter Summary ---
Author Organization [facility] Address [address] [place] [address] Care Team Providers Care Ceramic Worker Name Role Phone Unavailable Primary Care Provider Unavailabl e Encounter Details Date Type Department Care Team (Late st Contact Info) Description 12/28/2020 Transcribed Document [facility] [place] [address] [place] [address] ProviderMacrina MD [address] [place], [place] [address]881 Social History Tobacco Use Types Packs/Day Years [...]
--- OUTSIDE RECORDS SUMMARY | 2025-01-16 12:44 | XMS_ITS | Encounter Summary ---
Author Organization [employer] [facility] Address [address] [place] [address] Care Team Providers Care Quality Consultant Name Role Phone Unavailable Primary Care Provider Unavailabl e Encounter Details Date Type Department Care Team (Late st Contact Info) Description 01/15/2021 Transcribed Document [facility] [place] Family Medicine [address] [place] [address] ProviderMacrina MD [address] [place] [address] Social History Tobacco Use Types [...] issues. Plan for pt to d/c to [facility]. 01/11: High TF f/up. On [...] 01/15): 1600-1800kcal (25-28kcal/kg/MSJx1.2) 78g PRO (1.2g/kg) Alexa Dukes Dietitian - 01/15/2021 14:00 EDT Nutrition Diagnoses [...] Osmolite 1.5 @ 50ml/hr. RD to d/c [id number] now that pt is on floor (provides [...]
--- OUTSIDE RECORDS SUMMARY | 2025-01-16 12:44 | XMS_ITS | Encounter Summary ---
Author Organization [facility] Address [address] [place] [address] Care Team Providers Care Mail Carrier Technician Name Role Phone Unavailable Primary Care Provider Unavailabl e Encounter Details Date Type Department Care Team (Late st Contact Info) Description 01/17/2021 Transcribed Document [facility] [place] Family Medicine [facility] [place] [address] ProviderMacrina MD [address] [place], [place] [id number] Social History Tobacco Use Types Packs/Day Years [...] 1012. 01/02/21: POD#6 Intubated and sedated on Yqngrkdx132yjm/hr and Precedex .6mcg/kg/min. He is also on [...] 2L/NC TF 50ml/hr Continue P.T. Transfer [facility] Pt will need rehab when clinically ready 01/11/21 POD#15 O2 91% 2L/NC TF 50ml/hr Continue P.T. Awaiting transfer to [facility] 01/12/2021 POD #16 Continues tube feedings, tolerating Steady progress 01/13/2021 POD #17 ALINA Bebe Will need rehab placement 01/14/2021 POD #18 Patient still not cleared for PO [facility] has accepted the patient, but he needs a PEG. Will consult general surgery for PEG placement prior to transfer to [facility] 01/15/2021 POD #19 Planning to repeat swallow evaluation. Depending on results, may require PEG prior to transfer to [facility]. 01/16/2021: POD #20 Continue tube feedings PEG tomorrow per Dr. Rodriguez Spoke with , will contact [facility] tomorrow for bed availability once PEG is placed. 01/17/2021: POD #21 Failed swallow evaluation yesterday For PEG placement today. [facility] after PEG placement today if bed [...]
--- OUTSIDE RECORDS SUMMARY | 2025-01-16 12:44 | XMS_ITS | Encounter Summary ---
Author Organization [facility] Address [address] [place] [address] Care Team Providers Care Corporate Development Associate Name Role Phone Unavailable Primary Care Provider Unavailabl e Encounter Details Date Type Department Care Team (Late st Contact Info) Description 01/11/2021 Transcribed Document [facility] [place] Family Medicine [facility] [address] ProviderMacrina MD [address], [place] [phone] Social History Tobacco Use Types Packs/Day Years [...] 1012. 01/02/21: POD#6 Intubated and sedated on Achfhijo684cta/hr and Precedex .6mcg/kg/min. He is also on [...] 2L/NC TF 50ml/hr Continue P.T. Transfer to [facility] Pt will need rehab when clinically ready 01/11/21 POD#15 O2 91% 2L/NC TF 50ml/hr Continue P.T. Awaiting transfer to [facility] Diagnosis Anxiety - Pre-Op Diagnosis, Medical. Cardiac [...] Medical. Electronically signed by Olinda Payne Conversion Facilities Engineering Manager Cerner at 11/10/2022 9:10 AM CDT documented in this encounter Plan of Treatment Not on file documented as of this encounter Visit Diagnoses Not on filedocumented in this encounter
--- OUTSIDE RECORDS SUMMARY | 2025-01-16 12:44 | XMS_ITS | Encounter Summary ---
Author Organization [facility] Address [address] [place] [address] Care Team Providers Care Technician Helper Instrument Name Role Phone Unavailable Primary Care Provider Unavailabl e Encounter Details Date Type Department Care Team (Late st Contact Info) Description 01/10/2021 Transcribed Document [facility] [place] [address] ProviderMacrina MD [address], [place] [phone] Social History Tobacco Use Types Packs/Day Years [...] 1012. 01/02/21: POD#6 Intubated and sedated on Dorqzlmb740heg/hr and Precedex .6mcg/kg/min. He is also on [...] TF 50ml/hr Continue P.T. Transfer to [facility] Pt will need rehab when clinically ready [...] Pre-Op Diagnosis, Medical. Electronically signed by Elmer, [facility] Conversion Securities Underwriter Cerner at 11/10/2022 9:29 AM CDT documented in this encounter Plan of Treatment Not on file documented as of this encounter Visit Diagnoses Not on filedocumented in this encounter
--- OUTSIDE RECORDS SUMMARY | 2025-01-16 12:44 | XMS_ITS | Encounter Summary ---
Author Organization [place] [facility] Address [address] [place] [address] Care Team Providers Care Outpatient Services Director Name Role Phone Unavailable Primary Care Provider Unavailabl e Encounter Details Date Type Department Care Team (Late st Contact Info) Description 01/17/2021 Transcribed Document [facility] Family Medicine [address] [place] [address] ProviderMacrina MD [address] [place] [address] Social History Tobacco Use Types [...]
--- OUTSIDE RECORDS SUMMARY | 2025-01-16 12:44 | XMS_ITS | Encounter Summary ---
Author Organization [facility] Address [address] [place] [address] Care Team Providers Care Blasting Coal Miner Name Role Phone Unavailable Primary Care Provider Unavailabl e Encounter Details Date Type Department Care Team (Late st Contact Info) Description 01/04/2021 Transcribed Document [facility] [place] Family Medicine [address] [place] [address] ProviderMacrina MD [address] [place], [place] [address] Social History Tobacco Use Types Packs/Day Years [...] JAMES Inman RN - 01/04/2021 19:33 EDT Electronically signed by Elmer [facility] Conversion Customs Port Director Cerner at 11/10/2022 9:15 AM CDT documented in this encounter Plan of Treatment Not on file documented as of this encounter Visit Diagnoses Not on filedocumented in this encounter
--- OUTSIDE RECORDS SUMMARY | 2025-01-16 12:44 | XMS_ITS | Encounter Summary ---
Author Organization [facility] Address [address] [place] [address] Care Team Providers Care Negative Assembler Name Role Phone Unavailable Primary Care Provider Unavailabl e Encounter Details Date Type Department Care Team (Late st Contact Info) Description 01/17/2021 Transcribed Document [facility] [place] [address] ProviderMacrina MD [address] [place] [address] Social History Tobacco Use Types [...] the stomach under direct vision. A 20 Finnish PEG was placed under standard pull technique. [...] Loss Minimal *Findings Successful placement of 20 Finnish PEG *Specimen(s) None Complications None immediate Date of Service Date/Time of Service SN - Proc - Start Time: 12/27/20 17:41:00 (12/27/20 18:39:23) documented in this encounter Plan of Treatment Not on file documented as of this encounter Visit Diagnoses Not on filedocumented in this encounter
--- OUTSIDE RECORDS SUMMARY | 2025-01-16 12:44 | XMS_ITS | Encounter Summary ---
Author Organization [employer] In [facility] Address [address] [place] [address] Care Team Providers Care Shoelace Tipping Machine Operator Name Role Phone Unavailable Primary Care Provider Unavailabl e Encounter Details Date Type Department Care Team (Late st Contact Info) Description 01/01/2021 Transcribed Document [address] [address] Abby Rodrigues MD [address] [place] [address] Social History Tobacco Use Types Packs/Day Years [...] Basic Information PCP: Robert Batista MD Primary Knitter Operator: Arthur Gomez MD Subjective Extubated yesterday but [...] 24 Hours) Radiology Results (Last 48 hours) [id number] -- 12/27/2020 06:39 CR Chest 1 Vw [...] s/p pericardiocentesis and surgical repair of LV [place]. PEA Arrest; CODE called 10 minutes to [...]
--- OUTSIDE RECORDS SUMMARY | 2025-01-16 12:44 | XMS_ITS | Encounter Summary ---
Author Organization [facility] Address [address] [place] [address] Care Team Providers Care Cnc Service Engineer Name Role Phone Unavailable Primary Care Provider Unavailabl e Encounter Details Date Type Department Care Team (Late st Contact Info) Description 12/28/2020 Transcribed Document [facility] Family Medicine [address] [place] [address] ProviderMacrina MD [address] [place], [place] [address] Social History Tobacco Use Types Packs/Day Years [...] DIMAS GARCIA RN - 12/28/2020 19:35 EDT Electronically signed by Olinda Payne Conversion Business Management Associate Guanaco at 11/10/2022 9:20 AM CDT documented in this encounter Plan of Treatment Not on file documented as of this encounter Visit Diagnoses Not on filedocumented in this encounter
--- OUTSIDE RECORDS SUMMARY | 2025-01-16 12:44 | XMS_ITS | Encounter Summary ---
Author Organization [facility] [employer] In i[facility] Address [address] [place] [address] Care Team Providers Care Air Force Senior Officer Name Role Phone Unavailable Primary Care Provider Unavailabl e Encounter Details Date Type Department Care Team (Late st Contact Info) Description 01/05/2021 Transcribed Document [facility] Pulm & Critical Care Medicine [address] [place] [address] [address] [place] [address] Willie Espinoza MD [address] [facility] [address] [place] [address] Social History Tobacco Use Types [...] 0.5 MCG/KG/. Awake and following commands, positive watch case polisher in bilateral hands. MRI brain yesterday revealed [...] Medical Aortic valve stenosis / SNOMED CT 924593652 / Confirmed At risk for sleep apnea / IMO 72197816 / Confirmed Colorectal surgery / SNOMED CT 4083803046 / Confirmed HTN - Hypertension / SNOMED CT 0849072481 / Confirmed, Active Problems (13) Aortic stenosis, [...] 01/05/2021 04:28 Radiology Results (Last 48 hours) [id number] -- 12/27/2020 06:39 CR Chest 1 Vw [...] dependent pleural effusions. Small on theleft and ywxao-ah-rkbohbmo on the right side. These are associated [...] CT-GUIDED THORACENTESISHISTORY: Pleural effusion.ATTENDING PHYSICIAN: Dr. Youssef BLASTING MINER: ANAYA CantorCTECHNIQUE: Informed consent was obtained from [...]
--- OUTSIDE RECORDS SUMMARY | 2025-01-16 12:44 | XMS_ITS | Encounter Summary ---
Author Organization [facility] Address [address] [place] [address] Care Team Providers Care Journalism Teacher Name Role Phone Unavailable Primary Care Provider Unavailabl e Encounter Details Date Type Department Care Team (Late st Contact Info) Description 01/01/2021 Transcribed Document [facility] [address] [place] [address] ProviderMacrina MD [address] [place] [address] Social History Tobacco Use Types Packs/Day Years [...] On: 01/01/2021 11:42 EDT by Sue Hazel Humanities Professor-Health Unit Coord Phone Call for Consults Consult Phone Call/Page Attempt : First call Sue Hazel Care Asst-Health Unit Coord - 01/01/2021 15:00 EDT documented in this encounter Plan of Treatment Not on file documented as of this encounter Visit Diagnoses Not on filedocumented in this encounter
--- OUTSIDE RECORDS SUMMARY | 2025-01-16 12:44 | XMS_ITS | Encounter Summary ---
Author Organization [facility] [employer] [facility] Address [address] [place] [address] Care Team Providers Care County Manager Name Role Phone Unavailable Primary Care Provider Unavailabl e Encounter Details Date Type Department Care Team (Late st Contact Info) Description 12/27/2020 Transcribed Document [facility] [place] [address] [place] [address] ProviderMacrina MD [address] [place], [place] [address] Social History Tobacco Use Types Packs/Day Years [...]
--- OUTSIDE RECORDS SUMMARY | 2025-01-16 12:44 | XMS_ITS | Encounter Summary ---
Author Organization [facility] [employer] In iatives Address [address] [place] [address] Care Team Providers Care Glove Sewer Name Role Phone Unavailable Primary Care Provider Unavailabl e Encounter Details Date Type Department Care Team (Late st Contact Info) Description 01/10/[address] [facility] [place] Family Medicine [place] [address] ProviderMacrina MD [address] [place] [address] Social History Tobacco Use Types [...] These findings were discussed with the surgeon. /[id number] MD HE Lomas/AQ / KB / MODL /[id number] Electronically signed by Elmer, [facility] Conversion Brake Operator Helper Cerner at 11/10/2022 9:31 AM CDT documented in this encounter Plan of Treatment Not on file documented as of this encounter Visit Diagnoses Not on filedocumented in this encounter
--- OUTSIDE RECORDS SUMMARY | 2025-01-16 12:44 | XMS_ITS | Encounter Summary ---
Author Organization [employer] [facility] Address [address] [place] [address] Care Team Providers Care Structural Steel Engineer Name Role Phone Unavailable Primary Care Provider Unavailabl e Encounter Details Date Type Department Care Team (Late st Contact Info) Description 01/04/2021 Transcribed Document [address] [address] Abby Rodrigues MD [address] [place] [address] Social History Tobacco Use Types Packs/Day Years [...] Basic Information PCP: Robert Batista MD Primary Individualized Education Plan Aide: Arthur Gomez MD Subjective Patient seen and [...] 24 Hours) Radiology Results (Last 48 hours) [id number] -- 12/27/2020 06:39 MRI Brain WO (01/02/2021 [...] s/p pericardiocentesis and surgical repair of LV [place]. PEA Arrest; CODE called 10 minutes to [...]
--- OUTSIDE RECORDS SUMMARY | 2025-01-16 12:44 | XMS_ITS | Encounter Summary ---
Author Organization [facility] Address [address] [place] [address] Care Team Providers Care Senior Sales Engineer Name Role Phone Unavailable Primary Care Provider Unavailabl e Encounter Details Date Type Department Care Team (Late st Contact Info) Description 12/28/2020 Transcribed Document [facility] [place] Family Medicine [address] [place] [address] ProviderMacrina MD [address], [place] [phone] Social History Tobacco Use Types Packs/Day Years [...] Insurance 1 Health Plan: MEDICARE Policy Number: [id number] Authorization Number: Insurance 2 Health Plan: [employer] Medicare Supplement Policy Number: [id number] Authorization Number: Insurance Primary Name : MEDICARE Policy Number: [id number] Authorized Service Begin Date-Primary : 12/27/2020 EDT Historical Authorization Comments-Primary : No Authorization Comments Found ANGELA LOFTON RN-Utilization Review - 12/28/2020 12:31 EDT documented in this encounter Plan of Treatment Not on file documented as of this encounter Visit Diagnoses Not on filedocumented in this encounter
--- OUTSIDE RECORDS SUMMARY | 2025-01-16 12:44 | XMS_ITS | Encounter Summary ---
Author Organization [employer] [facility] Address [address] [place] [address] Care Team Providers Care Contractor Buyer Name Role Phone Unavailable Primary Care Provider Unavailabl e Encounter Details Date Type Department Care Team (Late st Contact Info) Description 01/11/2021 Transcribed Document [facility] [place] Family Medicine [address] [place] [address] ProviderMacrina MD [address] [place] [...] and w/ diarrhea. 01/08: high f/up. Per POWER TECHNICIAN notes, pt not ready for instrumental. TF [...] Continue Osmolite 1.5 @ 50ml/hr + 1 [id number] daily (provides 1710kcal, 83g PRO). FW per [...]
--- OUTSIDE RECORDS SUMMARY | 2025-01-16 12:44 | XMS_ITS | Encounter Summary ---
Author Organization [facility] Address [address] [place] [address] Care Team Providers Care Staff Genetic Counselor Name Role Phone Unavailable Primary Care Provider Unavailabl e Encounter Details Date Type Department Care Team (Late st Contact Info) Description 01/02/2021 Transcribed Document [facility] [place] Family Medicine [address] [place] [address] ProviderMacrina MD [address] [place] [address] Social History Tobacco Use [...]
--- OUTSIDE RECORDS SUMMARY | 2025-01-16 12:44 | XMS_ITS | Encounter Summary ---
Author Organization [facility] [employer] In iatives Address [address] [place] [address] Care Team Providers Care Tour Director Name Role Phone Unavailable Primary Care Provider Unavailabl e Encounter Details Date Type Department Care Team (Late st Contact Info) Description 01/06/2021 Transcribed Document [facility] Pulm & Critical Care Medicine [address] [place] [address] [address] [place] [address] Willie Espinoza MD [address] [facility] [address] [place] [address] Social History Tobacco Use Types [...] 0.5 MCG/KG/. Awake and following commands, positive vamp liner in bilateral hands. MRI brain yesterday revealed [...] 180s. 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 [...] Medical Aortic valve stenosis / SNOMED CT 814746677 / Confirmed At risk for sleep apnea / IMO 84405165 / Confirmed Colorectal surgery / SNOMED CT 2338227441 / Confirmed HTN - Hypertension / SNOMED CT 2516409682 / Confirmed, Active Problems (13) Aortic stenosis, [...] 13) 46 (CESAR 12) 35 (CESAR 11) 33 (CESAR 10) ALK P 80 [...] (Current Encounter/Past 24 Hours) pH Art 7.49 ID 01/06/2021 07:08 pCO2 Art 37.3 01/06/2021 05:09 pO2 Art 72.3 LOW 01/06/2021 07:08 HCO3 Art 28.7 HI 01/06/2021 07:08 BE Art 5.1 ID 01/06/2021 07:08 sO2 Art 95.8 01/06/2021 05:09 [...] (Current Encounter/Past 24 Hours) pH Art 7.49 ID 01/06/2021 07:08 pCO2 Art 37.3 01/06/2021 05:09 pO2 Art 72.3 LOW 01/06/2021 07:08 HCO3 Art 28.7 HI 01/06/2021 07:08 BE Art 5.1 ID 01/06/2021 07:08 sO2 Art 95.8 01/06/2021 05:09 [...] 01/06/2021 05:09 Radiology Results (Last 48 hours) [id number] -- 12/27/2020 06:39 CR Chest 1 Vw [...] CT-GUIDED THORACENTESISHISTORY: Pleural effusion.ATTENDING PHYSICIAN: Dr. Youssef FABRIC WORKER FOREMAN: LUCÍA Cantor-CTECHNIQUE: Informed consent was obtained from [...]
--- OUTSIDE RECORDS SUMMARY | 2025-01-16 12:44 | XMS_ITS | Encounter Summary ---
Author Organization [facility] Address [address] [place] [address] Care Team Providers Care Edge Inker Heels Name Role Phone Unavailable Primary Care Provider Unavailabl e Encounter Details Date Type Department Care Team (Late st Contact Info) Description 12/27/2020 Transcribed Document [facility] [place] Family Medicine [address] [place] [address] ProviderMacrina MD [address] [place], [place] [address]121 Social History Tobacco Use Types Packs/Day Years [...] 12/27/2020 22:18 EDT Electronically signed by Elmer [facility] Conversion Reservation Manager Cerner at 11/10/2022 9:05 AM CDT documented in this encounter Plan of Treatment Not on file documented as of this encounter Visit Diagnoses Not on filedocumented in this encounter
--- OUTSIDE RECORDS SUMMARY | 2025-01-16 12:44 | XMS_ITS | Encounter Summary ---
Author Organization [facility] [employer] [facility] Address [address] [place] [address] Care Team Providers Care Outpatient Receptionist Name Role Phone Unavailable Primary Care Provider Unavailabl e Encounter Details Date Type Department Care Team (Late st Contact Info) Description 12/28/2020 Transcribed Document [facility] [place] [address] [place] [address] ProviderMacrina MD [address], [place] [phone] Social History Tobacco Use Types Packs/Day Years [...] On: 12/28/2020 12:41 EDT by SOPHY RM Rn-Renal NursePackaging Coordinator Progress Note Discharge Arrangements : Patient [...] : Clinical Condition of Patient SOPHY RM Rn-Renal Nurse - 12/28/2020 12:41 EDT Narrative Progress Note Narrative Progress Note : DCP TBD - pending progress; OP Cardiac Rehab referral placed thru [facility]. SOPHY RM, Rn-Renal Nurse - 12/28/2020 12:41 EDT documented in this encounter Plan of Treatment Not on file documented as of this encounter Visit Diagnoses Not on filedocumented in this encounter
--- OUTSIDE RECORDS SUMMARY | 2025-01-16 12:44 | XMS_ITS | Encounter Summary ---
Author Organization [facility] Address [address] [place] [address] Care Team Providers Care Other Spatial Scientist Name Role Phone Unavailable Primary Care Provider Unavailabl e Encounter Details Date Type Department Care Team (Late st Contact Info) Description 01/01/2021 Transcribed Document [facility] [place] Medicine [address] [place] [address] ProviderMacrina MD [address] [place] [address] Social History Tobacco Use Types Packs/Day Years [...] PEEWEE SMITH RN - 01/01/2021 6:36 EDT documented in this encounter Plan of Treatment Not on file documented as of this encounter Visit Diagnoses Not on filedocumented in this encounter
--- OUTSIDE RECORDS SUMMARY | 2025-01-16 12:44 | XMS_ITS | Encounter Summary ---
Author Organization [facility] Address [address] [place] [address] Care Team Providers Care Biomedical Specialist Name Role Phone Unavailable Primary Care Provider Unavailabl e Encounter Details Date Type Department Care Team (Late st Contact Info) Description 01/01/2021 Transcribed Document [facility] [facility] [place] [address] ProviderMacrina MD [address] [place], [place] [phone] Social History Tobacco Use Types Packs/Day Years [...] Problems Aortic valve stenosis / SNOMED CT 442518488 / Confirmed Arthritis of right knee / SNOMED CT 6553512958 / Confirmed At risk for sleep apnea / IMO 27080918 / Confirmed Chronic anxiety / SNOMED CT 585855855 / Confirmed Back pain, chronic / SNOMED CT 422794434 / Confirmed Colorectal surgery / SNOMED CT 0575207281 / Confirmed Disorder of prostate / SNOMED CT 04718253 / Confirmed GERD - Gastro-esophageal reflux disease / SNOMED CT 9998316973 / Confirmed H/O peripheral neuropathy / SNOMED CT 321508148 / Confirmed feet tingle all the time HTN - Hypertension / SNOMED CT 0740108609 / Confirmed Hyperlipidemia / SNOMED CT 48400003 / Confirmed Hypertension / SNOMED CT 95997187 / Confirmed Aortic stenosis, severe / SNOMED CT 4003619329 / Confirmed Resolved: Cancer of colon / SNOMED CT 2499971889, Active Problems (13) Aortic stenosis, severe Aortic [...] H 55.9 (CESAR 03) AST H 50 (CESRA 08) H 78 (CESAR 06) H 125 [...] 01/01/2021 04:52 Radiology Results (Last 48 hours) [id number] -- 12/27/2020 06:39 CR Chest 1 Vw [...] team, including critical care team, CCRN, RT., Physical Scientist , case management and clinical pharmacist. I [...]
--- OUTSIDE RECORDS SUMMARY | 2025-01-16 12:44 | XMS_ITS | Encounter Summary ---
Author Organization [employer] In [employer] Address [address] [place] [address] Care Team Providers Care Text Transcriber Name Role Phone Unavailable Primary Care Provider Unavailabl e Encounter Details Date Type Department Care Team (Late st Contact Info) Description 01/06/2021 Transcribed Document [facility] Cardiology [address] [place] [address] Danyelle Gomez MD [address] [facility] [address] [place] [id number] Social History Tobacco Use Types Packs/Day Years [...] Basic Information PCP: Robert Batista MD Primary Roller Printing Supervisor: Danyelle Gomez MD Subjective Patient feeling better [...] Medical Aortic valve stenosis / SNOMED CT 512266794 / Confirmed At risk for sleep apnea / IMO [id number] / Confirmed Colorectal surgery / SNOMED CT 8694612990 / Confirmed HTN - Hypertension / SNOMED CT 6261471803 / Confirmed, Active Problems (13) Aortic stenosis, [...] (Current Encounter/Past 24 Hours) ProBNP 3753 pg/mL MS 01/06/2021 05:22 Radiology Results (Last 48 hours) [id number] -- 12/27/2020 06:39 CT Chest WO (01/04/2021 [...] dependent pleural effusions. Small on theleft and [id number] on the right side. These are associated [...] CT-GUIDED THORACENTESISHISTORY: Pleural effusion.ATTENDING PHYSICIAN: Dr. Youssef CELLAR HAND: ANAYA CantorCTECHNIQUE: Informed consent was obtained from [...] s/p pericardiocentesis and surgical repair of LV [place]. PEA Arrest; CODE called 10 minutes to [...]
--- OUTSIDE RECORDS SUMMARY | 2025-01-16 12:44 | XMS_ITS | Encounter Summary ---
Author Organization [employer] In [facility] Address [address] [place] [address] Care Team Providers Care Speech Language Assistant Name Role Phone Unavailable Primary Care Provider Unavailabl e Encounter Details Date Type Department Care Team (Late st Contact Info) Description 01/09/2021 Transcribed Document [facility] [place] Family Medicine [address] [place] [address] ProviderMacrina MD [address] [place] [address] Social History Tobacco Use Types [...] Initial Visit : No Referred by : Case Coordinator follow-up Referral Reason Comment : Critical care follow up visit Ministry Provided to : Patient Druze Preference : [facility] BRISSA SULLIVAN - 01/09/2021 12:28 EDT Spiritual [...] Emotional Support : Empathic/Engaged listening Spiritual and Druze : Prayer shared, Spiritual/Druze support provided BRISSA SULLIVAN P - 01/09/2021 12:28 EDT documented in this encounter Plan of Treatment Not on file documented as of this encounter Visit Diagnoses Not on filedocumented in this encounter
--- NOTE | 2025-01-16 12:45 | ECG_ITS ---
APPROVED REPORT Exam: Resting ECG HR:60 bpm ECG Measurements Heart Rate 60 AXES MA 181 P 45 QRSd 174 QRS -37 QT 445 T 73 QTc 446 Conclusion ELECTRONIC VENTRICULAR PACEMAKER ABNORMAL RHYTHM ECG UNCONFIRMED REPORT Electronically signed by : ALISA CHAMBERS, 01/17/2025 06:33:28
--- OUTSIDE RECORDS SUMMARY | 2025-01-16 12:45 | XMS_ITS | Encounter Summary ---
Author Organization [employer] [facility] Address [address] [place] [address] Care Team Providers Care Deicer Repairer Name Role Phone Unavailable Primary Care Provider Unavailabl e Encounter Details Date Type Department Care Team (Late st Contact Info) Description 01/03/2021 Transcribed Document [facility] [place] Family Medicine [address] [place] [address] ProviderMacrina MD [address] [place] [address] Social History Tobacco Use Types [...] Therapy Eval and Treat Ordered By: ANANDA QUILSE MD-NEU 01/03/2021 09:52 Physical Therapy Eval and [...] : 12/27/2020 06:39 Assisted by, PT : ammonia technician/aide Personal Devices : Personal Devices No [...] VALENCIA LEONARD, PT - 01/12/2021 13:19 EDT Alf Goals Mobility/Bed Mobility LTG PT Grid Goal [...] rehab . Discussed getting inpatient rehab at [facility] to help him be more functional at [...]
--- OUTSIDE RECORDS SUMMARY | 2025-01-16 12:45 | XMS_ITS | Encounter Summary ---
Author Organization [employer] [facility] Address [address] [place] [address] Care Team Providers Care Hired Hand Name Role Phone Unavailable Primary Care Provider Unavailabl e Encounter Details Date Type Department Care Team (Late st Contact Info) Description 12/28/[address] [facility] [place] Family Medicine [address] [place] [address] ProviderMacrina MD [address] [place] [address] Social History Tobacco Use Types [...] Source : Measured Height Entry Format : [place]erson Height, Feet : 0 ft Height, Inches : 67.75 Inch Clinical Height : 172.09 cm Body Surface Area (BSA), Routine : 1.9 m2 Body Mass Index (BMI), Routine : 26.1 kg/m2 Belem Lawson RN - 12/28/2020 5:23 EDT Electronically signed by Olinda Payne Conversion Configuration Management Advisor Cerner at 11/10/2022 9:23 AM CDT documented in this encounter Plan of Treatment Not on file documented as of this encounter Visit Diagnoses Not on filedocumented in this encounter
--- OUTSIDE RECORDS SUMMARY | 2025-01-16 12:45 | XMS_ITS | Encounter Summary ---
Author Organization [facility] In iatives Address [address] [place] [address] Care Team Providers Care Hammer Smith Name Role Phone Unavailable Primary Care Provider Unavailabl e Encounter Details Date Type Department Care Team (Late st Contact Info) Description 12/30/2020 Transcribed Document [facility] [place] Family Medicine [address] [place] [address] ProviderMacrina MD [address] [place], [place] [address]27341 Social History Tobacco Use Types Packs/Day Years Used Date Smoking Tobacco: Never Assessed Sex and Gender Information Value Date Recorded Sex Assigned at Not on file Legal Sex Male 1:13 PM CDT Gender Identity Not on file Sexual Orientation Not on file documented as of this encounter Miscellaneous Notes * Cerner Conversion Note - Historical ProviderMD - 12/30/2020 2:00 AM CDT Machine Buffer Details Entered On: 12/30/2020 0:32 EDT Performed [...] RON URENA RN - 12/30/2020 0:32 EDT Electronically signed by Olinda Payne Conversion Wire Bound Box Machine Operator Cerner at 11/10/2022 9:09 AM CDT documented in this encounter Plan of Treatment Not on file documented as of this encounter Visit Diagnoses Not on filedocumented in this encounter
--- OUTSIDE RECORDS SUMMARY | 2025-01-16 12:45 | XMS_ITS | Encounter Summary ---
Author Organization [facility] [employer] In [facility] Address [address] [place] [address] Care Team Providers Care Senior Application Security Consultant Name Role Phone Unavailable Primary Care Provider Unavailabl e Encounter Details Date Type Department Care Team (Late st Contact Info) Description 01/03/2021 Transcribed Document [facility] [place] Family Medicine [address] [place] [address] ProviderMacrina MD [address] [place], [place] [address] Social History Tobacco Use Types Packs/Day Years [...] On: 01/03/2021 15:00 EDT by SOPHY RM Rn-GophermanGame Design Instructor Progress Note Discharge Arrangements : Patient Post-Acute [...] Meeting Medical Necessity : Yes SOPHY RM Rn-Gopherman - 01/03/2021 15:00 EDT Narrative Progress Note [...] trach/peg; DCP TBD pending progress. SOPHY RM Rn-Gopherman - 01/02/21 14:55:12 HD#5; ELOS 3; LRR; BOOST 6; POD #5 - Elective TAVR/L Ventrial Tear/Cardiac Tamponode; extubated on 6/7 required reintubation today fi02 60/peep 8; Precedex/Fent gtt; Corpak/TF; IV Zosyn; CT draining; T=100; DCP TBD pending progress; will need therapy evals when appropriate. SOPHY RM Rn-Gopherman - 01/01/21 14:47:57 HD#4; ELOS 3; LRR; POD#4 - Electiv TAVR; L Ventrical Tear; intubated fi02 50; Cardene gtt; Corpak to be placed and TF initiated; SBT today; following commands; Head MRI ordered; possible extubation post MRI; no movement noted on R side; will need PT/OT evaluations when extubated; DCP pending progress - likely rehab. SOPHY RM Rn-Gopherman - 12/31/20 14:58:43 DCP TBD - pending progress; [facility] SOPHY RM Rn-Gopherman - 12/28/20 12:42:03 SOPHY RM Rn-Gopherman - 01/03/2021 15:00 EDT documented in this encounter Plan of Treatment Not on file documented as of this encounter Visit Diagnoses Not on filedocumented in this encounter
--- OUTSIDE RECORDS SUMMARY | 2025-01-16 12:45 | XMS_ITS | Encounter Summary ---
Author Organization [facility] Address [address] [place] [address] Care Team Providers Care Cmm Inspector Name Role Phone Unavailable Primary Care Provider Unavailabl e Encounter Details Date Type Department Care Team (Late st Contact Info) Description 01/01/2021 Transcribed Document [facility] Family Medicine [facility] [address] ProviderMacrina MD [address] [place], [place] [id number] Social History Tobacco Use Types Packs/Day Years [...] 26.8 HI 01/01/2021 04:52 BE Art 3.8 DC 01/01/2021 04:52 sO2 Art 97.6 01/01/2021 04:52 [...]
--- OUTSIDE RECORDS SUMMARY | 2025-01-16 12:45 | XMS_ITS | Encounter Summary ---
Author Organization [facility] [employer] In [facility] Address [address] [place] [address] Care Team Providers Care Hospital Orderly Name Role Phone Unavailable Primary Care Provider Unavailabl e Encounter Details Date Type Department Care Team (Late st Contact Info) Description 12/27/2020 Transcribed Document [facility] [place] Family Medicine [address] [place] [address] ProviderMacrina MD [address] [place], [place] [phone] Social History Tobacco Use Types Packs/Day Years [...] : Code Referral Reason Comment : [facility] Provided to : Family/Significant other BRISSA SULLIVAN [...] 12/27/2020 12:08 EDT Electronically signed by Elmer, [facility] Conversion Assistant Infant Teacher Cerner at 11/10/2022 9:07 AM CDT documented in this encounter Plan of Treatment Not on file documented as of this encounter Visit Diagnoses Not on filedocumented in this encounter
--- OUTSIDE RECORDS SUMMARY | 2025-01-16 12:45 | XMS_ITS | Encounter Summary ---
Author Organization [facility] Address [address] [place] [address] Care Team Providers Care Internet Sales Manager Name Role Phone Unavailable Primary Care Provider Unavailabl e Encounter Details Date Type Department Care Team (Late st Contact Info) Description 12/27/2020 Transcribed Document [facility] [place] Family Medicine [facility] [place] [address] ProviderMacrina MD [address] [place], [place] [id number] Social History Tobacco Use Types Packs/Day Years [...] 660ml of fluid was removed. Additionally, per dairy and food laboratory assistant staff underwent CPR staff he underwent CPR [...]
--- OUTSIDE RECORDS SUMMARY | 2025-01-16 12:45 | XMS_ITS | Encounter Summary ---
Author Organization [facility] In iatives Address [address] [place] [address] Care Team Providers Care Jumpbasting Canvas Baster Name Role Phone Unavailable Primary Care Provider Unavailabl e Encounter Details Date Type Department Care Team (Late st Contact Info) Description 01/02/2021 Transcribed Document [facility] Pulm & Critical Care Medicine [address] [place] [address] [address] [place] [address] Erick Navarro MD [address] [facility] [address] [place] [address] Social History Tobacco Use Types [...] Medical Aortic valve stenosis / SNOMED CT 665587868 / Confirmed At risk for sleep apnea / IMO [id number] / Confirmed Colorectal surgery / SNOMED CT 2222855208 / Confirmed HTN - Hypertension / SNOMED CT 9194586345 / Confirmed, Active Problems (13) Aortic stenosis, [...] 01/02/2021 04:50 Radiology Results (Last 48 hours) [id number] -- 12/27/2020 06:39 CR Chest 1 Vw [...] team, including critical care team, CCRN, RT., Crystal Inspector , case management and clinical pharmacist. I [...]
--- OUTSIDE RECORDS SUMMARY | 2025-01-16 12:45 | XMS_ITS | Encounter Summary ---
Author Organization [facility] Address [address] [place] [address] Care Team Providers Care Retail Product Demo Specialist Name Role Phone Unavailable Primary Care Provider Unavailabl e Encounter Details Date Type Department Care Team (Late st Contact Info) Description 01/01/2021 Transcribed Document [facility] Family Medicine [address] [place] [address] ProviderMacrina MD [address] [place] [address] Social History Tobacco Use Types Packs/Day Years [...] On: 01/01/2021 9:49 EDT by Sue Hazel, Lumber MarkerHealth Unit Coord Phone Call for Consults Consult Phone Call/Page Attempt : First call Consult Reason : CVA Consult, Additional Information : Sue Hahn, Lumber Marker-Health Unit Coord - 01/01/2021 15:00 EDT documented in this encounter Plan of Treatment Not on file documented as of this encounter Visit Diagnoses Not on filedocumented in this encounter
--- OUTSIDE RECORDS SUMMARY | 2025-01-16 12:45 | XMS_ITS | Encounter Summary ---
Author Organization [employer] In [facility] Address [address] [place] [address] Care Team Providers Care Mac Operator Name Role Phone Unavailable Primary Care Provider Unavailabl e Encounter Details Date Type Department Care Team (Late st Contact Info) Description 12/27/2020 Transcribed Document [facility] Family Medicine [address] [place] [address] ProviderMacrina MD [address] [place] [address] Social History Tobacco Use Types [...] @ 20ml/hr AAT to goal @ 45ml/hr (+[id number], 62g pro). FW per MD goal: meet est needs 3. Once propofol off, increase Osmolite 1.5 to goal at 50ml/hr + 1 [id number] daily (provides 1710kcal, 83g PRO). Goal: meet [...]
--- OUTSIDE RECORDS SUMMARY | 2025-01-16 12:45 | XMS_ITS | Encounter Summary ---
Author Organization [facility] [employer] In [facility] Address [address] [place] [address] Care Team Providers Care Pattern Cleaner Name Role Phone Unavailable Primary Care Provider Unavailabl e Encounter Details Date Type Department Care Team (Late st Contact Info) Description 12/29/2020 Transcribed Document [facility] [place] Family Medicine [address] [place] [address] ProviderMacrina MD [address] [place] [address] Social History Tobacco Use Types [...] Care. 2006;15(4):420-427. Table 1, http://ajcc.aacnjournals.org/content/15/4/420.short, ?? 2006 [place] [employer]., Used with permission. Marley Huizar Non Emp RN - 01/06/2021 3:12 EDT Electronically signed by Elmer [facility] Conversion College Counselor Cerner at 11/14/2022 8:23 AM CDT documented in this encounter Plan of Treatment Not on file documented as of this encounter Visit Diagnoses Not on filedocumented in this encounter
--- OUTSIDE RECORDS SUMMARY | 2025-01-16 12:45 | XMS_ITS | Encounter Summary ---
Author Organization [employer] Address [address] [place] [address] Care Team Providers Care Credit Card Analyst Name Role Phone Unavailable Primary Care Provider Unavailabl e Encounter Details Date Type Department Care Team (Late st Contact Info) Description 01/11/2021 Transcribed Document [facility] Cardiology [address] [place] [address] Danyelle Gomez MD [address]01 [facility] [address] [place] [id number] Social History Tobacco Use Types Packs/Day Years [...] Basic Information PCP: Robert Batista MD Primary Public Health Nurse: Danyelle Gomez MD Subjective Sitting up in [...] 28.3 \ Radiology Results (Last 48 hours) [id number] -- 12/27/2020 06:39 CR Chest 1 Vw [...] s/p pericardiocentesis and surgical repair of LV [place]. PEA Arrest; CODE called 10 minutes to [...]
--- OUTSIDE RECORDS SUMMARY | 2025-01-16 12:45 | XMS_ITS | Encounter Summary ---
Author Organization [employer] [facility] Address [address] [place] [address] Care Team Providers Care Gas Fitter Name Role Phone Unavailable Primary Care Provider Unavailabl e Encounter Details Date Type Department Care Team (Late st Contact Info) Description 01/03/2021 Transcribed Document [facility] [place] Medicine [address] [place] [address] ProviderMacrina MD [address] [place] [address] Social History Tobacco Use Types [...] clear droop. He is now able to communication skills instructor weakly on the right which is an [...]
--- OUTSIDE RECORDS SUMMARY | 2025-01-16 12:45 | XMS_ITS | Encounter Summary ---
Author Organization [place] In [facility] Address [address] [place] [address] Care Team Providers Care Supply Chain Design Manager Name Role Phone Unavailable Primary Care Provider Unavailabl e Encounter Details Date Type Department Care Team (Late st Contact Info) Description 01/07/2021 Transcribed Document [facility] [place] Family Medicine [address] [place] [address] ProviderMacrina MD [address] [place] [address] Social History Tobacco Use Types Packs/Day Years Used Date Smoking Tobacco: Never Assessed Sex and Gender Information Value Date Recorded Sex Assigned at Not on file Legal Sex Male 1:13 PM CDT Gender Identity Not on file Sexual Orientation Not on file documented as of this encounter Miscellaneous Notes * Cerner Conversion Note - Macrina ProviderMD - 01/07/2021 10:25 AM CDT PURCHASING BUYER Note Entered On: 01/17/2021 9:21 EDT Performed On: 01/17/2021 9:21 EDT by JUAN MANUEL BRUMFIELD, PURCHASING BUYER Pain Assessment Pain Scaled Used : FACES [...] Verbal Expression Divergent Naming #1 Task : [place] Divergent Naming #1 # Possible : 10 Divergent Naming #1 # Correct : 10 Divergent Naming #1 Time : 60 Second(s) Divergent Naming #2 Task : [place] Divergent Naming #2 # Possible : 15 Divergent Naming #2 # Correct : 12 Divergent Naming #2 Time : 60 Second(s) Divergent Naming #3 Task : [place] Divergent Naming #3 # Possible : 15 [...] Accuracy % : 88.3 % JUAN MANUEL BRUMIFELD SLP - 01/17/2021 10:52 EDT Problem Solving [...] Pct : 100 % JUAN MANUEL BRUMFIELD [facility] Boaz 01/17/2021 10:52 EDT Swallow Plan/Goals Swallow LTG Grid PURCHASING BUYER Analysis Engineer Goal #1 PURCHASING BUYER Analysis Engineer Goal #2 Swallow LTG : Establish safe oral diet without aspiration Improve swallowing function for oral intake Status : Progressing, continue Progressing, continue JUAN MANUEL BRUMFIELD, PURCHASING BUYER - 01/17/2021 10:52 EDT JUAN MANUEL BRUMFIELD, PURCHASING BUYER - 01/17/2021 10:52 EDT Swallow Goals Grid [...] 01/10/2021 EDT 01/10/2021 EDT JUAN MANUEL BRUMFIELD, PURCHASING BUYER - 01/17/2021 10:52 EDT JUAN MANUEL BRUMFIELD, PURCHASING BUYER - 01/17/2021 10:52 EDT JUAN MANUEL BRUMFIELD, PURCHASING BUYER - 01/17/2021 10:52 EDT JUAN MANUEL BRUMFIELD, [facility] - 01/17/2021 10:52 EDT Goal #5 [...] - 01/17/2021 10:52 EDT JUAN MANUEL BRUMFIELD, PURCHASING BUYER - 01/17/2021 10:52 EDT JUAN MANUEL BRUMFIELD, PURCHASING BUYER - 01/17/2021 10:52 EDT JUAN MANUEL BRUMFIELD, PURCHASING BUYER - 01/17/2021 10:52 EDT Goal #9 Swallow STG : Other: Pt goal: I want to go home Related To : Date to Meet : Status : Date Met : JUAN MANUEL BRUMFIELD SLP - 01/17/2021 10:52 EDT LTG Lang/Comm/Cog LTG PURCHASING BUYER Analysis Engineer Goal 1 Analysis Engineer Goal 2 Goals : Improved memory in order to complete functional task(s) upon discharge Improved problem solving in order to complete functional task(s) upon discharge Status : Progressing, continue Progressing, continue JUAN MANUEL BRUMFIELD SLP - 01/17/2021 10:52 EDT JUAN MANUEL BRUMFIELD SLP - 01/17/2021 10:52 EDT STG Lang_Comm_Cog PURCHASING BUYER Education STG Grid Goal #1 Activity : [...] BRUMFIELD SLP - 01/17/2021 10:52 EDT Subjective/Assessment/Plan PURCHASING BUYER Patient Concern : Pt awake in bed PURCHASING BUYER Therapy/Treatment Asmt Cmnt : Patient seen for [...] in conversation. Improved cognitive performance overall today PURCHASING BUYER Plan : PEG placement later today. ST will see 01/18 JUAN MANUEL BRUMFIELD SLP - 01/17/2021 10:52 EDT Education Individuals Taught : Patient JUAN MANUEL BRUMFIELD SLP - 01/17/2021 10:52 EDT PURCHASING BUYER Education Assessment Grid 1 Aspiration : Needs further teaching Dysphagia : Needs further teaching JUAN MANUEL BRUMFIELD SLP - 01/17/2021 10:[address] [facility] PURCHASING BUYER Charges Treatment-Swallowing : 1 ST Development of Cognition Initial 15 minutes : 1 (Comment: 15 mins [JUAN MANUEL BRUMFIELD SLP - 01/17/2021 10:52 EDT] ) ST Development of Cognition Additional 15 minutes : 1 (Comment: 15 mins [JUAN MANUEL BRUMFIELD SLP - 01/17/2021 10:52 EDT] ) JUAN MANUEL BRUMFIELD SLP - 01/17/2021 10:52 EDT documented in this encounter Plan of Treatment Not on file documented as of this encounter Visit Diagnoses Not on filedocumented in this encounter
--- OUTSIDE RECORDS SUMMARY | 2025-01-16 12:45 | XMS_ITS | Encounter Summary ---
Author Organization [facility] Address [address] [place] [address] Care Team Providers Care Commercial Credit Portfolio Manager Name Role Phone Unavailable Primary Care Provider Unavailabl e Encounter Details Date Type Department Care Team (Late st Contact Info) Description 12/27/2020 Transcribed Document [facility] [place] Family Medicine [address] [place] [address] ProviderMacrina MD [address] [place], [place] [address] Social History Tobacco Use Types Packs/Day Years [...]
--- OUTSIDE RECORDS SUMMARY | 2025-01-16 12:45 | XMS_ITS | Encounter Summary ---
Author Organization [employer] In [facility] Address [address] [place] [address] Care Team Providers Care Entry Level Electrician Name Role Phone Unavailable Primary Care Provider Unavailabl e Encounter Details Date Type Department Care Team (Late st Contact Info) Description 12/27/2020 Transcribed Document [facility] [place] Family Medicine [address] [place] [address] ProviderMacrina MD [address] [place] [address] Social History Tobacco Use [...] Initial Visit : No Referred by : Fish Skinning Machine Feeder follow-up Ministry Provided to : Patient, Family/Significant other LAVERN VALDIVIA Chaplain - 12/27/2020 18:36 EDT Spiritual Assessment Spiritual Assessment Comment/Summary Points : follow up visit as recommended by previous civil rights attorney. Supportive presence and conversation provided for patient's [...] DAVID L, Chaplain - 12/27/2020 18:36 EDT Electronically signed by Olinda Payne Conversion Environmental Health Sanitarian Cerner at 11/10/2022 9:13 AM CDT documented in this encounter Plan of Treatment Not on file documented as of this encounter Visit Diagnoses Not on filedocumented in this encounter
--- OUTSIDE RECORDS SUMMARY | 2025-01-16 12:45 | XMS_ITS | Encounter Summary ---
Author Organization [employer] In [facility] Address [address] [place] [address] Care Team Providers Care Insurance Account Executive Name Role Phone Unavailable Primary Care Provider Unavailabl e Encounter Details Date Type Department Care Team (Late st Contact Info) Description 01/02/2021 Transcribed Document [facility] [place] Family Medicine [address] [place] [address] ProviderMacrina MD [address] [place] [address] Social History Tobacco Use [...] with in room yesterday; I will follow. Electronically signed by Olinda Payne Conversion Automation Controls Specialist Cerner at 11/10/2022 9:26 AM CDT documented in this encounter Plan of Treatment Not on file documented as of this encounter Visit Diagnoses Not on filedocumented in this encounter
--- OUTSIDE RECORDS SUMMARY | 2025-01-16 12:45 | XMS_ITS | Encounter Summary ---
Author Organization [facility] Address [address] [place] [address] Care Team Providers Care Chief Of Vital Statistics Name Role Phone Unavailable Primary Care Provider Unavailabl e Encounter Details Date Type Department Care Team (Late st Contact Info) Description 01/07/2021 Transcribed Document [facility] [place] [address] ProviderMacrina MD [address] [place], [place] [id number] Social History Tobacco Use Types Packs/Day Years [...] 0.5 MCG/KG/. Awake and following commands, positive corrections caseworker in bilateral hands. MRI brain yesterday revealed [...] 180s. 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; awake overnight monitor and moves extremities bilaterally but weaker on [...] Problems Aortic valve stenosis / SNOMED CT 262493519 / Confirmed Arthritis of right knee / SNOMED CT 0218155057 / Confirmed At risk for sleep apnea / IMO 39150956 / Confirmed Chronic anxiety / SNOMED CT 409598900 / Confirmed Back pain, chronic / SNOMED CT 033269492 / Confirmed Colorectal surgery / SNOMED CT 6024347175 / Confirmed Disorder of prostate / SNOMED CT 85390309 / Confirmed GERD - Gastro-esophageal reflux disease / SNOMED CT 1181297250 / Confirmed H/O peripheral neuropathy / SNOMED CT 226074575 / Confirmed feet tingle all the time HTN - Hypertension / SNOMED CT 8889027130 / Confirmed Hyperlipidemia / SNOMED CT 76494762 / Confirmed Hypertension / SNOMED CT 86474171 / Confirmed Aortic stenosis, severe / SNOMED CT 9897449182 / Confirmed Resolved: Cancer of colon / SNOMED CT 4766016270, Active Problems (13) Aortic stenosis, severe Aortic [...] HB L 9.4 (CESAR 14) L 9.2 (ECSAR 13) L 7.8 (CESAR 12) L 7.3 [...] 24 Hours) Radiology Results (Last 48 hours) [id number] -- 12/27/2020 06:39 CR Chest 1 Vw [...] ZAVALA. Electronically signed by Olinda Payne Conversion Centerless Grinding Machine Adjuster Cerner at 11/10/2022 9:30 AM CDT documented in this encounter Plan of Treatment Not on file documented as of this encounter Visit Diagnoses Not on filedocumented in this encounter
--- OUTSIDE RECORDS SUMMARY | 2025-01-16 12:45 | XMS_ITS | Encounter Summary ---
Author Organization [employer] [facility] Address [address] [place] [address] Care Team Providers Care Technical Applications Scientist Name Role Phone Unavailable Primary Care Provider Unavailabl e Encounter Details Date Type Department Care Team (Late st Contact Info) Description 12/27/2020 Transcribed Document [facility] Cardiology [address] [place] [address] Danyelle Gomez MD [address] [facility] [address] [place] [address] Social History Tobacco Use Types [...] Basic Information PCP: Robert Batista MD Primary Commissioning Editor: Danyelle Gomez MD Chief Complaint Severe Aortic [...] All Problems Arthritis of right knee / 5761220629 / Confirmed At risk for sleep apnea / 58936307 / Confirmed Chronic anxiety / 057509592 / Confirmed Back pain, chronic / 150061212 / Confirmed Colorectal surgery / 5849425886 / Confirmed Disorder of prostate / 32284277 / Confirmed GERD - Gastro-esophageal reflux disease / 0404135178 / Confirmed H/O peripheral neuropathy / 031875587 / Confirmed Hyperlipidemia / 45840167 / Confirmed Hypertension / 22463448 / Confirmed Aortic stenosis, severe / 1899042316 / Confirmed Resolved: Cancer of colon / 7400297383 Histories No education data available. Social & Psychosocial Habits Alcohol 11/15/2019 Alcohol Use History, Social Habits No Substance Abuse 12/25/2020 Recreational Drug Use History No Recreational Drug Use Last 12 Months No Tobacco 11/15/2019 Smoking Status Never (less than 100 in l Past Medical History: Active Aortic valve stenosis (484948305) HTN - Hypertension (3963626907) Family History: Father Heart disease Mother Heart [...] of motion, Normal strength. Integumentary: Warm, Dry, Coldiron. Neurologic: Alert, Oriented. Psychiatric: Cooperative, Appropriate mood & affect. Review / Management Radiology Results (Last 48 hours) [id number] -- 12/27/2020 06:39 CR Chest 2 Vws [...] and Plan IMPRESSION: Aortic stenosis, severe [facility]/15/19 [facility] no obstructive disease. BAV 09/19/19 - [...]
--- OUTSIDE RECORDS SUMMARY | 2025-01-16 12:45 | XMS_ITS | Encounter Summary ---
Author Organization [employer] [facility] Address [address] [place] [address] Care Team Providers Care Supervisor Mold Shop Name Role Phone Unavailable Primary Care Provider Unavailabl e Encounter Details Date Type Department Care Team (Late st Contact Info) Description 01/03/2021 Transcribed Document [address] [address] Abby Rodrigues MD [address] [place] [address] Social History Tobacco Use Types Packs/Day Years [...] Basic Information PCP: Robert Batista MD Primary Swing Type Lathe Operator: Arthur Gomez MD Subjective Patient seen and [...] 24 Hours) Radiology Results (Last 48 hours) [id number] -- 12/27/2020 06:39 CR Chest 1 Vw [...] s/p pericardiocentesis and surgical repair of LV [place]. PEA Arrest; CODE called 10 minutes to [...]
--- OUTSIDE RECORDS SUMMARY | 2025-01-16 12:45 | XMS_ITS | Encounter Summary ---
Author Organization [facility] Address [address] [place] [address] Care Team Providers Care Telemedicine Physician Name Role Phone Unavailable Primary Care Provider Unavailabl e Encounter Details Date Type Department Care Team (Late st Contact Info) Description 12/28/2020 Transcribed Document [facility] [place] [facility] [place] [address] ProviderMacrina MD [address] [place], [place] [id number] Social History Tobacco Use Types Packs/Day Years [...] Problems Aortic valve stenosis / SNOMED CT 831435398 / Confirmed Arthritis of right knee / SNOMED CT 2470142726 / Confirmed At risk for sleep apnea / IMO 75355329 / Confirmed Chronic anxiety / SNOMED CT 003056691 / Confirmed Back pain, chronic / SNOMED CT 706108009 / Confirmed Colorectal surgery / SNOMED CT 3751142150 / Confirmed Disorder of prostate / SNOMED CT 46207061 / Confirmed GERD - Gastro-esophageal reflux disease / SNOMED CT 7478314106 / Confirmed H/O peripheral neuropathy / SNOMED CT 804893178 / Confirmed feet tingle all the time HTN - Hypertension / SNOMED CT 5702331220 / Confirmed Hyperlipidemia / SNOMED CT 75499327 / Confirmed Hypertension / SNOMED CT 75592474 / Confirmed Aortic stenosis, severe / SNOMED CT 6380772102 / Confirmed Resolved: Cancer of colon / SNOMED CT 8551084079, Active Problems (13) Aortic stenosis, severe Aortic [...] 12/28/2020 04:43 Radiology Results (Last 48 hours) [id number] -- 12/27/2020 06:39 CR Chest 1 Vw [...] with anesthesia, cardiology and cardiothoracic surgery attendings documented in this encounter Plan of Treatment Not on file documented as of this encounter Visit Diagnoses Not on filedocumented in this encounter
--- OUTSIDE RECORDS SUMMARY | 2025-01-16 12:45 | XMS_ITS | Encounter Summary ---
Author Organization [facility] Address [address] [place] [address] Care Team Providers Care Customer Experience Leader Name Role Phone Unavailable Primary Care Provider Unavailabl e Encounter Details Date Type Department Care Team (Late st Contact Info) Description 12/29/2020 Transcribed Document [facility] [place] [address] [place] [address] ProviderMacrina MD [address] [place], [place] [address] Social History Tobacco Use Types Packs/Day Years [...]
--- OUTSIDE RECORDS SUMMARY | 2025-01-16 12:45 | XMS_ITS | Encounter Summary ---
Author Organization [facility] Address [address] [place] [address] Care Team Providers Care Internet Sales Representative Name Role Phone Unavailable Primary Care Provider Unavailabl e Encounter Details Date Type Department Care Team (Late st Contact Info) Description 01/07/2021 Transcribed Document [facility] [place] [facility] [place] [address] ProviderMacrina MD [address], [place] [id number] Social History Tobacco Use Types Packs/Day Years [...] 1012. 01/02/21: POD#6 Intubated and sedated on [id number]/hr and Precedex .6mcg/kg/min. He is also on [...]
--- OUTSIDE RECORDS SUMMARY | 2025-01-16 12:45 | XMS_ITS | Encounter Summary ---
Author Organization [facility] Address [address] [place] [address] Care Team Providers Care Ammonia Print Operator Name Role Phone Unavailable Primary Care Provider Unavailabl e Encounter Details Date Type Department Care Team (Late st Contact Info) Description 01/07/2021 Transcribed Document [facility] [place] [address] [place] [address] ProviderMacrina MD [address] [place] [address] Social History Tobacco Use Types [...] On: 01/07/2021 14:30 EDT by ANDREIA TITUS, ORDER PROCESSING SPECIALIST General Information Visit Type, ORDER PROCESSING SPECIALIST : Initial evaluation Patient Orders : Speech Language Pathology Additional Tx -111 Start: 01/07/21 10:25:00 EDT, For Dysphagia, Continuous Order - Speech Language Pathology Evaluation and Treatment - Start: 01/07/21 10:06:00 EDT, Routine, For Speech Language Cognitive Eval and Treat -111 ANTHONY JACOBO PA Admission Date : Admission Date/Time: 12/27/20 06:39:00 Medical Chart Reviewed, ORDER PROCESSING SPECIALIST : Yes Personal Devices : Personal [...] stenosis 12/28/2020 12:00 Polyneuropathy, unspecified Therapy Diagnosis, ORDER PROCESSING SPECIALIST : Patient presents with mild cognitive impairment and moderate to severe dysarthria. Will initiate tx. Precautions in Place : Fall prevention measures Previous Speech/Language Evaluations : none Previous Swallow Precautions : none in EMR Previous Cognitive Evaluations : none Diet/Intake Prior to Current Admission : regular Diet/Intake During Current Admission : NPO with corpak Intubation Comment, ORDER PROCESSING SPECIALIST : 12/27-12/31, reintubated 01/01-01/05 Vital Signs [...] 15:02 EDT General Status Patient Received Status, ORDER PROCESSING SPECIALIST : Long sitting in bed Patient Left Status, ORDER PROCESSING SPECIALIST : Long sitting in bed ANDREIA TITUS [...] 15:02 EDT Evaluation Methods Types of Evaluation, ORDER PROCESSING SPECIALIST : Formal and subtests Formal and Subtests [...] - 01/07/2021 15:02 EDT Therapy Indication Assessment ORDER PROCESSING SPECIALIST Indicated : Yes ORDER PROCESSING SPECIALIST Problem List : Impaired, Memory, Impaired, Motor Speech Potential Barriers to ORDER PROCESSING SPECIALIST : Cognitive deficit ORDER PROCESSING SPECIALIST Rehabilitation Potential : Good ANDREIA TITUS SLP - 01/07/2021 15:02 EDT LTG Lang/Comm/Cog LTG ORDER PROCESSING SPECIALIST Snf Goal 1 Acidity Tester Goal 2 Goals : Improved memory in [...] of Care, LCC : Acute inpatient rehab, [facility] facility ANDREIA TITUS SLP - 01/07/2021 15:02 EDT ORDER PROCESSING SPECIALIST Education STG Grid Goal #1 Activity : [...] ANDREIA TITUS SLP - 01/07/2021 15:02 EDT ORDER PROCESSING SPECIALIST Education Assessment Grid 1 Communication, Effects of [...]
--- OUTSIDE RECORDS SUMMARY | 2025-01-16 12:45 | XMS_ITS | Encounter Summary ---
Author Organization [facility] Address [address] [place] [address] Care Team Providers Care Coding Compliance Manager Name Role Phone Unavailable Primary Care Provider Unavailabl e Encounter Details Date Type Department Care Team (Late st Contact Info) Description 01/03/2021 Transcribed Document [facility] [place] [address] [place] [address] ProviderMacrina MD [address] [place], [place] [address] Social History Tobacco Use Types Packs/Day Years [...] LAVERN VALDIVIA Chaplain - 01/03/2021 21:56 EDT documented in this encounter Plan of Treatment Not on file documented as of this encounter Visit Diagnoses Not on filedocumented in this encounter
--- OUTSIDE RECORDS SUMMARY | 2025-01-16 12:45 | XMS_ITS | Encounter Summary ---
Author Organization [employer] [facility] Address [address] [place] [address] Care Team Providers Care White Sugar Boiler Name Role Phone Unavailable Primary Care Provider Unavailabl e Encounter Details Date Type Department Care Team (Late st Contact Info) Description 01/01/2021 Transcribed Document [facility] [place] [address] [place] [address] ProviderMacrina MD [address] [place] [id number] Social History Tobacco Use Types Packs/Day Years [...] tolerated to goal at 50ml/hr + 1 [id number] daily (provides 1710kcal, 83g PRO). Goal: meet est needs 2. Monitor elytes and replace prn Goal: wnls 3. Obtain wt 2x weekly goal: avoid sig wt changes Risk: High Nutrition Care Level : High Tamy Wolff Dietitian - 01/01/2021 11:01 EDT documented in this encounter Plan of Treatment Not on file documented as of this encounter Visit Diagnoses Not on filedocumented in this encounter
--- OUTSIDE RECORDS SUMMARY | 2025-01-16 12:45 | XMS_ITS | Encounter Summary ---
Author Organization [facility] Address [address] [place] [address] Care Team Providers Care Carpentry Specialist Name Role Phone Unavailable Primary Care Provider Unavailabl e Encounter Details Date Type Department Care Team (Late st Contact Info) Description 01/02/2021 Transcribed Document [facility] [place] [address] [place] [address] ProviderMacrina MD [address] [place], [place] [address] Social History Tobacco Use Types Packs/Day Years [...]
--- OUTSIDE RECORDS SUMMARY | 2025-01-16 12:45 | XMS_ITS | Encounter Summary ---
Author Organization [employer] [facility] Address [address] [place] [address] Care Team Providers Care Caddy Master Name Role Phone Unavailable Primary Care Provider Unavailabl e Encounter Details Date Type Department Care Team (Late st Contact Info) Description 01/03/2021 Transcribed Document [facility] [place] [address] [place] [address] ProviderMacrina MD [address] [place] [address] Social History Tobacco Use Types [...] : 12/27/2020 06:39 Co-treated by, OT : assistant terminal manager (LAUNDRY ROUTE DRIVER) Personal Devices : Personal Devices No Devices [...] Transfer Assist Level : Assist, moderate HAYDEE OH OTR/Ade - 01/15/2021 16:20 EDT Functional Mobility Mobility Grid Supine to Sit : Rehab Moderate assistance Sit to Stand : Rehab Moderate assistance (Comment: x2 [HAYDEE OH OTR/Ade - 01/15/2021 16:20 EDT] ) Bed to Chair : Rehab Moderate assistance (Comment: x2 [HAYEDE OH OTR/Ade - 01/15/2021 16:20 EDT] ) Stand to Sit : Rehab Moderate assistance HAYDEE OH OTR/Ade - 01/15/2021 16:20 EDT Cognitive Treatment, [...]
--- OUTSIDE RECORDS SUMMARY | 2025-01-16 12:45 | XMS_ITS | Encounter Summary ---
Author Organization [employer] [facility] Address [address] [place] [address] Care Team Providers Care Textile Machinery Instructor Name Role Phone Unavailable Primary Care Provider Unavailabl e Encounter Details Date Type Department Care Team (Late st Contact Info) Description 01/07/2021 Transcribed Document [facility] [place] [facility] [place] [address] ProviderMacrina MD [address] [place] [address] Social History Tobacco Use Types [...] On: 01/07/2021 9:35 EDT by ANDREIA TITUS BORING MACHINE OPERATOR DOUBLE END General Information Visit Type, BORING MACHINE OPERATOR DOUBLE END : Initial evaluation Patient Orders : Speech Language Pathology Evaluation and Treatment -111 Start: 01/07/21 10:06:00 EDT, Routine, For Speech Language Cognitive Eval and Treat - ANTHONY JACOBO PA Speech Language Pathology Swallow Evaluation and Treatment - Start: 01/07/21 7:00:00 EDT, Routine, For Swallow Eval and Treat -111 ANTHONY JACOBO PA Admission Date : Admission Date/Time: 12/27/20 06:39:00 Medical Chart Reviewed, BORING MACHINE OPERATOR DOUBLE END : Yes Personal Devices : Personal Devices [...] stenosis 12/28/2020 12:00 Polyneuropathy, unspecified Therapy Diagnosis, BORING MACHINE OPERATOR DOUBLE END : Overt patterns of oropharyngeal dysphagia. Not [...] corpak Multiple Intubations : Yes Intubation Comment, BORING MACHINE OPERATOR DOUBLE END : 12/27-12/31, reintubated 01/01-01/05 Vital Signs RTF [...] 10:07 EDT General Status Patient Received Status, BORING MACHINE OPERATOR DOUBLE END : Sitting edge of bed Patient Left Status, BORING MACHINE OPERATOR DOUBLE END : Long sitting in bed ANDREIA TITUS [...] TITUS, BENJY - 01/07/2021 10:07 EDT] ) BORING MACHINE OPERATOR DOUBLE END Cough : Weak Facial Appearance: : Asymmetrical, [...] - 01/07/2021 10:07 EDT Therapy Indication Assessment BORING MACHINE OPERATOR DOUBLE END Indicated : Yes BORING MACHINE OPERATOR DOUBLE END Problem List : Impaired, Swallowing Potential Barriers to BORING MACHINE OPERATOR DOUBLE END : Acuity of illness, Cognitive deficit BORING MACHINE OPERATOR DOUBLE END Rehabilitation Potential : Good ANDREIA TITUS SLP - 01/07/2021 10:07 EDT Swallow Plan/Goals Treatment Frequency, BORING MACHINE OPERATOR DOUBLE END : 5 times per wk Treatment Plan Est w/Pt/Caregvr, Swallow : Yes Treatment Duration, BORING MACHINE OPERATOR DOUBLE END : Two weeks Therapy at Next Level of Care, BORING MACHINE OPERATOR DOUBLE END : Acute inpatient rehab, care home facility ANDREIA TITUS SLP - 01/07/2021 10:07 EDT Swallow LTG Grid BORING MACHINE OPERATOR DOUBLE END Third Grade Teacher Goal #1 BORING MACHINE OPERATOR DOUBLE END Alf Goal #2 Swallow LTG : Establish safe [...] ANDREIA TITUS SLP - 01/07/2021 10:07 EDT BORING MACHINE OPERATOR DOUBLE END Education Assessment Grid 1 Aspiration : Needs [...] ANDREIA TITUS SLP - 01/07/2021 10:07 EDT BORING MACHINE OPERATOR DOUBLE END Education Assessment Grid 2 Treatment Plan : Verbalizes understanding, Needs further teaching ANDREIA TITUS SLP - 01/07/2021 10:[address] [facility] Charges Evaluation Swallowing Function : 1 ANDREIA TITUS SLP - 01/07/2021 10:07 EDT Anticipated Discharge Needs, BORING MACHINE OPERATOR DOUBLE END Anticipated Discharge to : Extended Care Facility, Rehab, high intensity Recommend Continued Therapy at Discharge : No ANDREIA TITUS SLP - 01/07/2021 10:07 EDT Electronically signed by Olinda Payne Conversion Photographic Developer And Printer Cerner at 11/10/2022 9:09 AM CDT documented in this encounter Plan of Treatment Not on file documented as of this encounter Visit Diagnoses Not on filedocumented in this encounter
--- OUTSIDE RECORDS SUMMARY | 2025-01-16 12:45 | XMS_ITS | Encounter Summary ---
Author Organization [facility] Address [address] [place] [address] Care Team Providers Care Nut Blanker Operator Name Role Phone Unavailable Primary Care Provider Unavailabl e Encounter Details Date Type Department Care Team (Late st Contact Info) Description 01/03/2021 Transcribed Document [facility] [place] [address] [place] [address] ProviderMacrina MD [address] [place], [place] [address] Social History Tobacco Use Types Packs/Day Years [...]
--- OUTSIDE RECORDS SUMMARY | 2025-01-16 12:45 | XMS_ITS | Encounter Summary ---
Author Organization [facility] Address [address] [place] [address] Care Team Providers Care Migratory Game Bird Biologist Name Role Phone Unavailable Primary Care Provider Unavailabl e Encounter Details Date Type Department Care Team (Late st Contact Info) Description 12/27/[address] [facility] [place] [address] [place] [address] ProviderMacrina MD [address] [place] [address] Social History Tobacco Use Types [...]
--- OUTSIDE RECORDS SUMMARY | 2025-01-16 12:45 | XMS_ITS | Encounter Summary ---
Author Organization [facility] In [facility] Address [address] [place] [address] Care Team Providers Care Engine Mechanic Name Role Phone Unavailable Primary Care Provider Unavailabl e Encounter Details Date Type Department Care Team (Late st Contact Info) Description 12/29/[address] [facility] [place] Family [place] [address] [place] [address] ProviderMacrina MD [address] [place] [address] Social History Tobacco Use Types [...]
--- OUTSIDE RECORDS SUMMARY | 2025-01-16 12:45 | XMS_ITS | Encounter Summary ---
Author Organization [employer] [facility] Address [address] [place] [address] Care Team Providers Care Spike Maker Name Role Phone Unavailable Primary Care Provider Unavailabl e Encounter Details Date Type Department Care Team (Late st Contact Info) Description 01/01/2021 Transcribed Document [facility] [place] [address] [place] [address] ProviderMacrina MD [address] [place] [address] Social History Tobacco Use Types [...] Source : Measured Height Entry Format : Spruce Height, Feet : 0 ft Height, Inches [...]
--- OUTSIDE RECORDS SUMMARY | 2025-01-16 12:45 | XMS_ITS | Encounter Summary ---
Author Organization [facility] Address [address] [place] [address] Care Team Providers Care Fox Farmer Name Role Phone Unavailable Primary Care Provider Unavailabl e Encounter Details Date Type Department Care Team (Late st Contact Info) Description 12/30/2020 Transcribed Document [facility] [place] [address] [place] [address] ProviderMacrina MD [address] [place] [address] Social History Tobacco Use Types Packs/Day Years [...]
--- OUTSIDE RECORDS SUMMARY | 2025-01-16 12:45 | XMS_ITS | Encounter Summary ---
Author Organization [facility] In iatives Address [address] [place] [address] Care Team Providers Care Yield Clerk Name Role Phone Unavailable Primary Care Provider Unavailabl e Encounter Details Date Type Department Care Team (Late st Contact Info) Description 12/27/2020 Transcribed Document [facility] [place] Family Medicine [address] [place] [address] ProviderMacrina MD [address] [place] [address] Social History Tobacco Use [...] Macrina ProviderMD - 12/27/2020 5:41 PM CDT [facility] Main OR IntraOp Summary Primary Physician: EMEKA MADERA MD-CAT Finalized Date/Time: 12/31/20 11:28:04 Pt. Name: JOSE ADORNO Ade /Sex: 1940 Male Med Rec #: [id number] Physician: DANYELLE WALTERS MD-DOMENICA Financial #: [id number] Pt. Type: I Room/Bed: [facility] Admit/Disch: 12/27/20 06:39:00 - Institution: [facility] IntraOp Case Attendance Entry 1 Entry 2 Entry 3 Case Attendee EMEKA MADERA BURBERRY, KEITH, MD-Leonora Chamorro RN MD-CAT Role Performed Surgeon/Proceduralist, Anesthesiologist Kitchen Mechanic, First First Time In 12/27/20 16:28:00 12/27/20 [...] COWAN, IRVING MITCHELL, TAMEKA SANDERSON Role Performed Kitchen Mechanic, Second Kitchen Mechanic, Third Scrub, First Time In 12/27/20 16:28:00 [...] JESSY GALLO MEECE, PAUL, PA-Manny Stratton RN Button Riveter Role Performed Button Riveter Physician assistant shift supervisor Other Time In 12/27/20 16:28:00 12/27/20 16:50:00 12/27/20 16:28:00 Time Out 12/27/20 18:11:00 12/27/20 18:11:00 12/27/20 16:42:00 Procedure Mediastinal Exploration Mediastinal Exploration Mediastinal Exploration Other Attendee [facility] NURSE Superficial Wound Closed By: Last Modified By: Leonora Joy, Leonora Davis, Leonora Davis RN 12/27/20 18:25:23 12/27/20 18:25:23 12/27/20 18:31:39 Entry 10 Case Attendee Tracie Wong, Bead Inspector-Student Nurse Role Performed Other Time In 12/27/20 16:28:00 Time Out 12/27/20 16:42:00 Procedure Mediastinal Exploration Other Attendee FROM [facility] Superficial Wound Closed By: Last Modified By: Leonora Joy RN 12/27/20 18:31:39 [facility] IntraOp Case Attendance Audit 12/27/20 18:31:39 Wood Grinder: PROFITDE Modifier: PROFITDE <+> 9 Case Attendee <+> 9 Role Performed <+> 9 Time In <+> 9 Time Out <+> 9 Procedure <+> 9 Other Attendee <+> 10 Case Attendee <+> 10 Role Performed <+> 10 Time In <+> 10 Time Out <+> 10 Procedure <+> 10 Other Attendee 12/27/20 18:25:23 Wood Grinder: PROFITDE Modifier: PROFITDE 1 <*> Procedure Mediastinal Exploration 2 <*> Procedure Mediastinal Exploration 3 <*> Procedure Mediastinal Exploration 4 <*> Procedure Mediastinal Exploration 5 <*> Procedure Mediastinal Exploration 6 <*> Procedure Mediastinal Exploration 7 <*> Procedure Mediastinal Exploration 8 <+> Time Out 8 <*> Procedure Mediastinal Exploration 12/27/20 18:22:52 Wood Grinder: PROFITDE Modifier: PROFITDE <+> 8 Case Attendee <+> 8 Role Performed <+> 8 Time In <+> 8 Procedure 12/27/20 18:21:01 Wood Grinder: PROFITDE Modifier: PROFITDE <+> 1 Procedure <+> 2 Procedure <+> 3 Procedure <+> 4 Procedure <+> 5 Procedure <+> 6 Procedure <+> 7 Procedure 12/27/20 18:20:49 Wood Grinder: PROFITDE Modifier: PROFITDE 1 <-> Procedure Coronary [...] 7 <-> Procedure Coronary Artery Bypass Graft [facility] IntraOp Case Times Entry 1 Patient In Room Time 12/27/20 16:28:00 Out Room Time 12/27/20 18:11:00 Anesthesia Start Time 12/27/20 16:28:00 Stop Time 12/27/20 18:11:00 Anesthesia Ready 12/27/20 16:28:00 Surgery / Procedure Times Start Time 12/27/20 17:41:00 Stop Time 12/27/20 17:58:00 Last Modified By: Leonora Joy RN 12/27/20 18:11:08 [facility] IntraOp Cautery Entry 1 ESU Identification Cautery Type Monopolar ESU ID Number [id number] ID Type Hospital Number Cautery Settings Cut [...] Modified By: Leonora Joy RN 12/27/20 18:18:50 [facility] IntraOp Communication Entry 1 Communication To Other Comment CTVU INFORMED OF START AND CLOSING Communication By Leonora Joy RN Last Modified By: Leonora Jyo RN 12/27/20 18:16:29 [facility] IntraOp Counts Verification Entry 1 Entry 2 [...] Proffitt, Debbie, RN 12/27/20 18:21:02 12/27/20 18:21:02 [facility] IntraOp Counts Verification Audit 12/27/20 18:21:02 Wood Grinder: PROFITDE Modifier: PROFITDE <+> 1 Procedure <+> 2 Procedure 12/27/20 18:20:50 Wood Grinder: PROFITDE Modifier: PROFITDE 1 <-> Procedure Coronary Artery Bypass Graft 2 <-> Procedure Coronary Artery Bypass Graft 12/27/20 18:17:53 Wood Grinder: PROFITDE Modifier: PROFITDE <+> 2 Procedure <+> 2 Count Type <+> 2 Counts Verification Sequence <+> 2 Count Results <+> 2 Count Performed By (Scrub) <+> 2 Count Performed By (RN) [facility] IntraOp Counts Final Entry 1 Procedure Mediastinal Exploration Final Count Info Count Type Sponge, Sharps, Miscellaneous Counts Verification Skin Closure/end of Sequence procedure Count Results Correct, surgeon notified Counts Performed By Count Performed By TAMEKA REDD (Scrub) Count Performed By Leonora Joy RN (RN) Last Modified By: Leonora Joy RN 12/27/20 18:21:02 [facility] IntraOp Counts Final Audit 12/27/20 18:21:02 Wood Grinder: PROFITDE Modifier: PROFITDE <+> 1 Procedure 12/27/20 18:20:50 Wood Grinder: PROFITDE Modifier: PROFITDE 1 <-> Procedure Coronary Artery Bypass Graft [facility] IntraOp Departure from OR Entry 1 Integumentary Assessment Integumentary WDL with patient Assessment WDL specific variances Patient's Normal PREOP, PLUS NEW Integumentary INCISION STERNAL Variance(s) Transfer/Handoff Transfer to ICU - Cardiovascular Handoff Method Bedside/Face to face, Phone call Handoff Reported to Manny Spencer RN Post-op Transport Bed (including Via specialty) Patient Transport JEISON CRUZ, Accompanied by SILKE, JESSY GALLO, Button Riveter, NIDIA HOOPER PA-UNK Last Modified By: Leonora Joy RN 12/27/20 18:23:11 [facility] IntraOp Departure from OR Audit 12/27/20 18:23:11 Wood Grinder: PROFITDE Modifier: PROFITDE 1 <*> Patient Transport Accompanied by JESSY GALLO Perfusionist [facility] IntraOp Drains and Tubes Entry 1 Device Type Chest Tube Size 36 FR. RIGHT ANGLED X 2 Drain/Tube Activity Inserted, Tube secured/stabilized Drain/Tube Suction Continuous high Drain/Tube Drainage None Device Location MEDIASTINUM Method of Drainage Active Chest Tubes Water-Seal 20 cm suction Connectivity Last Modified By: Leonora Joy RN 12/27/20 18:23:57 [facility] IntraOp Dressing and Packing Entry 1 Location CHEST Applied By NIDIA HOOPER PA-UNK Other Comments TEGADERM AND AQUACEL Last Modified By: Leonora Joy RN 12/27/20 18:32:08 [facility] IntraOp Fire Risk Assessment Entry 1 [...] Modified By: Leonora Joy RN 12/27/20 18:19:13 [facility] IntraOp General Case Roller Stainer 1 Case Information OR OR 14 [facility] Case Level 2 Room Verified Yes Wound Class I - Clean Specialty Cardio Thoracic Anesthesia Type General ASA Class 4E Diagnosis Preop Diagnosis cardiac tamponade Postop Same As Preop Yes Postop Diagnosis cardiac tamponade Last Modified By: Leonora Joy RN 12/27/20 18:13:36 [facility] IntraOp Implant Log Entry 1 Implant Log Implant PATCH VASC FELT 1.65MM Identification [id number] Description Implant Quantity 1 Implant Site HEART Implant [id number] Identification Lot Number Implant Cr Bard:Peripheral Vasc Identification Property Preservation Specialist Name: Implant [id number] Identification Catalog Number Implant Has an Yes Expiration Date Implant Expiration 04/23/24 Date Tissue Implant Implant Type Comment USED FOR THICKER PLEDGETS Last Modified By: Leonora Joy RN 12/27/20 18:28:44 [facility] IntraOp Intraoperative Assessment Entry 1 Handoff [...] Modified By: Leonora Joy RN 12/27/20 18:20:31 [facility] IntraOp Intraoperative Equipment Entry 1 Equipment Intraop Monitoring Electrocardiogram Five lead placement (ECG) Electrode Placement Blood Pressure Arterial Pressure Line Source Blood Pressure Arterial Location Pulse Oximeter Hand, right Probe Site Antiembolic Devices Scopes Photo/Video Documentation Last Modified By: Leonora Joy RN 12/27/20 18:26:37 [facility] IntraOp Medication Admin Entry 1 Medication/Irrigant CEFAZOLIN Route of ON MOIST LAPS TO STERNUM Administration Dose Dose 2 Unit of Measure gram Administered By EMEKA MADERA MD-CAT Procedure Irrigation Last Modified By: Leonora Joy RN 12/27/20 18:24:52 [facility] IntraOp Patient Positioning Entry 1 Procedure Mediastinal [...] Modified By: Leonora Joy RN 12/27/20 18:30:14 [facility] IntraOp Sign In Entry 1 Patient, [...] Modified By: Leonora Joy RN 12/27/20 18:25:21 [facility] IntraOp Sign Out Entry 1 RN [...] Last Modified By: Leonora Joy RN 12/27/20 18:32:49 [facility] IntraOp Skin Prep Entry 1 Procedure Mediastinal Exploration Prescribed Yes Pre-Surgical Prep Completed Prep Area CEST, CHIN TO KNEES Intraop Prep Prep Agents Chloraprep Prep by Leonora Joy RN Hair Removal Last Modified By: Leonora Joy RN 12/27/20 18:27:10 [facility] IntraOp Surgical Procedures Entry 1 Procedure Mediastinal Exploration Additional MEEDIANSTERNOTOMY, Procedure REPAIR OF LEFT Description VENTRICULAR TEAR Primary Procedure Yes Primary Surgeon EMEKA MADERA MD-CAT Start 12/27/20 17:41:00 Stop 12/27/20 17:58:00 Anesthesia Type General Specialty Cardio Thoracic Wound Class I - Clean Last Modified By: Leonora Joy RN 12/27/20 18:39:23 [facility] IntraOp Surgical Procedures Audit 12/27/20 18:39:23 Wood Grinder: ELVIRA Modifier: PROFITDE 1 <*> Procedure Mediastinal [...] the gap. <-> 2 Procedure 12/27/20 18:38:35 Wood Grinder: ELVIRA Modifier: PROFITDE <+> 2 Procedure [facility] IntraOp Temp Regulation Devices Entry 1 Temp Regulation Temperature Warm blankets Regulation Device Temperature Full body Regulation Site Temperature ON ARRIVAL AND Regulation Comment DEPARTURE FROM THE O.R., ROOM WARMED--CALL OUT INFOR Last Modified By: Leonora Joy RN 12/27/20 18:26:05 [facility] IntraOP Time Out Entry 1 Procedure [...] Modified By: Leonora Joy RN 12/27/20 18:21:02 [facility] IntraOP Time Out Audit 12/27/20 18:21:02 Wood Grinder: PROFITDE Modifier: PROFITDE <+> 1 Procedure to be Performed 12/27/20 18:20:50 Wood Grinder: PROFITDE Modifier: PROFITDE 1 <-> Procedure to [...]
--- OUTSIDE RECORDS SUMMARY | 2025-01-16 12:45 | XMS_ITS | Encounter Summary ---
Author Organization [employer] [facility] Address [address] [place] [address] Care Team Providers Care Outside Sales Professional Name Role Phone Unavailable Primary Care Provider Unavailabl e Encounter Details Date Type Department Care Team (Late st Contact Info) Description 01/03/2021 Transcribed Document [facility] [place] Medicine [address] [place] [address] ProviderMacrina MD [address] [place] [address] Social History Tobacco Use Types [...] ARIANE PIERCE, PT - 01/03/2021 15:39 EDT Hadoop Administrator Goals Mobility/Bed Mobility LTG PT Grid Goal [...] Weak Additional Objective Information : He did A/[id number] with UE's and LE's. He did SAQ's [...] ARIANE PIERCE, PT - 01/03/2021 15:39 EDT [place] PT Charges PT Eval Moderate Complexity : 1 ARIANE PIERCE, PT - 01/03/2021 15:39 EDT Electronically signed by [facility] Conversion Biological Technician Cerner at 11/10/2022 9:05 AM CDT documented in this encounter Plan of Treatment Not on file documented as of this encounter Visit Diagnoses Not on filedocumented in this encounter
--- OUTSIDE RECORDS SUMMARY | 2025-01-16 12:45 | XMS_ITS | Encounter Summary ---
Author Organization [employer] In iatives Address [address] [place] [address] Care Team Providers Care Registered Nurse Maternity Name Role Phone Unavailable Primary Care Provider Unavailabl e Encounter Details Date Type Department Care Team (Late st Contact Info) Description 12/29/2020 Transcribed Document [address] [id number] Abby Rodrigues MD [address] [place] [address] Social History Tobacco Use Types Packs/Day Years [...] Basic Information PCP: Robert Batista MD Primary Superintendent Warehouse: Arthur Gomez MD Subjective mechanical vent, not [...] 24 Hours) Radiology Results (Last 48 hours) [id number] -- 12/27/2020 06:39 CR Chest 1 Vw [...] s/p pericardiocentesis and surgical repain of LV [place]. PEA Arrest; CODE called 10 minutes to [...]
--- OUTSIDE RECORDS SUMMARY | 2025-01-16 12:45 | XMS_ITS | Encounter Summary ---
Author Organization [facility] Address [address] [place] [address] Care Team Providers Care Hvac Controls Technician Name Role Phone Unavailable Primary Care Provider Unavailabl e Encounter Details Date Type Department Care Team (Late st Contact Info) Description 01/02/2021 Transcribed Document [facility] [place] Family Medicine [facility] [place] [address] ProviderMacrina MD [address], [place] [id number] Social History Tobacco Use Types Packs/Day Years [...] 1012. 01/02/21: POD#6 Intubated and sedated on [id number]/hr and Precedex .6mcg/kg/min. He is also on Levo .03mcg/kg/min. Health Status Allergies: Allergic Reactions (Selected) No Known Allergies Physical Examination Intake and Output 24 hour intake: Total 1320 ml 24 hour output: Total 1330 ml MT and Right CT no drainage was recorded on maintenance mechanic 2nd shift VS/Measurements Vital Measurements 01/02/2021 8:14 EDT [...] Pre-Op Diagnosis, Medical. Electronically signed by [facility] Conversion Traffic Supervisor Cerner at 11/10/2022 9:31 AM CDT documented in this encounter Plan of Treatment Not on file documented as of this encounter Visit Diagnoses Not on filedocumented in this encounter
--- OUTSIDE RECORDS SUMMARY | 2025-01-16 12:45 | XMS_ITS | Encounter Summary ---
Author Organization [facility] In iatives Address [address] [place] [address] Care Team Providers Care Char House Supervisor Name Role Phone Unavailable Primary Care Provider Unavailabl e Encounter Details Date Type Department Care Team (Late st Contact Info) Description 01/07/2021 Transcribed Document [facility] [place] Family Medicine [address] [place] [address] ProviderMacrina MD [address] [place], [place] [address] Social History Tobacco Use Types Packs/Day Years [...]
--- OUTSIDE RECORDS SUMMARY | 2025-01-16 12:45 | XMS_ITS | Encounter Summary ---
Author Organization [employer] [facility] Address [address] [place] [address] Care Team Providers Care Sheet Metal Worker Helper Name Role Phone Unavailable Primary Care Provider Unavailabl e Encounter Details Date Type Department Care Team (Late st Contact Info) Description 01/03/2021 Transcribed Document [facility] [place] Medicine [address] [place] [address] ProviderMacrina MD [address] [place] [address] Social History Tobacco Use Types [...] : pt sedated NIH Sensory (8) : Yxzq-gy-wdsizecv sensory loss (Comment: pt intubated and sedated [Li Abraham RN-PATIENT CARE BEDSIDE NON-EXEMPT - 01/03/2021 15:05 EDT] ) NIH Best Language (9) : Uapr-xx-rgapifkd aphasia (Comment: pt intubated and sedated; mouths [...]
--- OUTSIDE RECORDS SUMMARY | 2025-01-16 12:45 | XMS_ITS | Encounter Summary ---
Author Organization [employer] [facility] Address [address] [place] [address] Care Team Providers Care Grape Cutter Name Role Phone Unavailable Primary Care Provider Unavailabl e Encounter Details Date Type Department Care Team (Late st Contact Info) Description 12/27/2020 Transcribed Document [facility] [place] Family Medicine [address] [place] [address] ProviderMacrina MD [address] [place] [address] Social History Tobacco Use Types [...] - Support Person/Pt Rep Contact Information : [phone] Want Family/Rep/Phys Notified of Admit : No Emergency Contact #1 : michaela Adorno Emergency Contact #1 Emergency Contact #1 Relationship : Emergency Contact #2 : Michaela Sandrahome phone Emergency Contact #2 Emergency Contact #2 Relationship : Information Obtained From : Patient Primary Language : Czech Communication Barrier : None Rn Urgent Care Needed : No Belem Lawson RN - [...] Scale Risk Level : 25-45 Medium Risk Lula Fall Interventions : Adequate lighting, Assistive devices [...] Source : Measured Height Entry Format : [place] Height, Feet : 0 ft(Converted to: 0 cm, 0 Inch) Height, Inches : 67.75 Inch(Converted to: 5 ft 8 Inch, 172.08 cm) Clinical Height : 172.09 cm Weight Source : Standing scale Weight Entry Format : [place] Clinical Dosing Weight : 65.14 kg Weight, Pounds : 143 lb Weight, Ounces : 5 oz Body Surface Area (BSA) : 1.77 m2 Body Mass Index : 22 kg/m2 [place] Body Weight : 67 kg Manny Spencer [...] Manny Spencer RN - 12/27/2020 22:10 EDT [place] Suicide Severity Rating Scale (C-SSRS) CSSRS Past [...] Manny Spencer RN - 12/27/2020 22:10 EDT documented in this encounter Plan of Treatment Not on file documented as of this encounter Visit Diagnoses Not on filedocumented in this encounter
--- OUTSIDE RECORDS SUMMARY | 2025-01-16 12:45 | XMS_ITS | Encounter Summary ---
Author Organization [facility] Address [address] [place] [address] Care Team Providers Care Shower Room Attendant Name Role Phone Unavailable Primary Care Provider Unavailabl e Encounter Details Date Type Department Care Team (Late st Contact Info) Description 01/02/2021 Transcribed Document [facility] [place] [address] [place] [address] ProviderMacrina MD [address] [place], [place] 8[address]881 Social History Tobacco Use Types Packs/Day Years [...]
--- OUTSIDE RECORDS SUMMARY | 2025-01-16 12:45 | XMS_ITS | Encounter Summary ---
Author Organization [facility] In iatives Address [address] [place] [address] Care Team Providers Care Inside Wireman Name Role Phone Unavailable Primary Care Provider Unavailabl e Encounter Details Date Type Department Care Team (Late st Contact Info) Description 01/03/2021 Transcribed Document [facility] Pulm & Critical Care Medicine [address] [place] [address] [address] [place] [address] Erick Navarro MD [address] [facility] [address] [place] [address] Social History Tobacco Use Types [...] 0.5 MCG/KG/. Awake and following commands, positive sales professional in bilateral hands. MRI brain yesterday revealed [...] Medical Aortic valve stenosis / SNOMED CT 226872569 / Confirmed At risk for sleep apnea / IMO [id number] / Confirmed Colorectal surgery / SNOMED CT 5323059790 / Confirmed HTN - Hypertension / SNOMED CT 0889189119 / Confirmed, Active Problems (13) Aortic stenosis, [...] (CESAR 08) 107 (CESAR 07) CO2 30 (CESRA 10) 31 (CESAR 09) 28 (CESAR 08) [...] 03) H 1.4 (CESAR 03) H 1.8 (ECSAR 03) PTT 27.8 (CESAR 05) H 62.4 [...] 76.4 LOW 01/03/2021 07:48 HCO3 Art 29.0 [place] 01/03/2021 07:48 BE Art 4.7 [place] 01/03/2021 07:48 sO2 Art 95.8 01/03/2021 04:20 tHb Art 8.0 [facility] 01/03/2021 07:48 FHHb 4.1 NA 01/03/2021 04:20 [...] 01/03/2021 04:20 Radiology Results (Last 48 hours) [id number] -- 12/27/2020 06:39 CR Chest 1 Vw [...] team, including critical care team, CCRN, RT., Medical Record Librarians Teacher , case management and clinical pharmacist. I [...]
--- OUTSIDE RECORDS SUMMARY | 2025-01-16 12:45 | XMS_ITS | Encounter Summary ---
Author Organization [facility] Address [address] [place] [address] Care Team Providers Care Pulper Name Role Phone Unavailable Primary Care Provider Unavailabl e Encounter Details Date Type Department Care Team (Late st Contact Info) Description 12/29/2020 Transcribed Document [facility] [place] Family Medicine [address] [place] [address] ProviderMacrina MD [address] [place], [place] 763331 Social History Tobacco Use Types Packs/Day Years [...]
--- OUTSIDE RECORDS SUMMARY | 2025-01-16 12:45 | XMS_ITS | Encounter Summary ---
Author Organization [facility] Address [address] [place] [address] Care Team Providers Care Wax Bleacher Name Role Phone Unavailable Primary Care Provider Unavailabl e Encounter Details Date Type Department Care Team (Late st Contact Info) Description 01/02/2021 Transcribed Document [facility] [place] Family Medicine [address] [place] [address] ProviderMacrina MD [address] [place] [address] Social History Tobacco Use Types [...]
--- OUTSIDE RECORDS SUMMARY | 2025-01-16 12:45 | XMS_ITS | Encounter Summary ---
Author Organization [facility] Address [address] [place] [address] Care Team Providers Care Orthopedics Teacher Name Role Phone Unavailable Primary Care Provider Unavailabl e Encounter Details Date Type Department Care Team (Late st Contact Info) Description 12/27/2020 Transcribed Document [facility] [place] Family Medicine [place] [address] ProviderMacrina MD [address] [place] [address] Social History Tobacco Use Types [...] of pericardial effusion. ANESTHESIA: General endotracheal anesthesia. ASSISTANT PROFESSOR OF LIFE SCIENCES: Sandi Gilmore physician blacksmith assistant. INDICATION FOR PROCEDURE: Mr. Francesco Adorno [...] fluid collection anymore. At this point, a 36-Cymraes right angle chest tube was placed in [...] and skin was approximated in subcuticular stitches. /[id number] Cuauhtemoc Gresham MD HRM/AQ / HRM / MODL /[id number] CC: MD Dr. Robert Gonzales MD Electronically signed by Interface, [facility] Conversion Cosmetic Counselor Cerner at 11/10/2022 9:09 AM CDT documented in this encounter Plan of Treatment Not on file documented as of this encounter Visit Diagnoses Not on filedocumented in this encounter
--- OUTSIDE RECORDS SUMMARY | 2025-01-16 12:45 | XMS_ITS | Encounter Summary ---
Author Organization [employer] [facility] Address [address] [place] [address] Care Team Providers Care Home Health Specialist Name Role Phone Unavailable Primary Care Provider Unavailabl e Encounter Details Date Type Department Care Team (Late st Contact Info) Description 12/27/2020 Transcribed Document [facility] [place] Family Medicine [facility] [place] [address] ProviderMacrina MD [address] [place] [address] Social History Tobacco Use Types [...]
--- OUTSIDE RECORDS SUMMARY | 2025-01-16 12:45 | XMS_ITS | Encounter Summary ---
Author Organization [facility] Address [address] [place] [address] Care Team Providers Care Regulatory Intern Name Role Phone Unavailable Primary Care Provider Unavailabl e Encounter Details Date Type Department Care Team (Late st Contact Info) Description 01/02/2021 Transcribed Document [facility] [place] [address] [place] [address] ProviderMacrina MD [address] [place], [place] [address] Social History Tobacco Use Types Packs/Day Years [...] EDT by Lauren Newberry OCCUPATIONAL THERAPIST NON-EXEMPT [place] OT Charges Screen For English Horn Player : 1 Lauren Newberry OCCUPATIONAL THERAPIST NON-EXEMPT - 01/02/2021 12:48 EDT documented in this encounter Plan of Treatment Not on file documented as of this encounter Visit Diagnoses Not on filedocumented in this encounter
--- OUTSIDE RECORDS SUMMARY | 2025-01-16 12:45 | XMS_ITS | Encounter Summary ---
Author Organization [employer] [facility] Address [address] [place] [address] Care Team Providers Care Business Editor Name Role Phone Unavailable Primary Care Provider Unavailabl e Encounter Details Date Type Department Care Team (Late st Contact Info) Description 01/03/2021 Transcribed Document [facility] [place] Family Medicine [address] [place] [address] ProviderMarcina MD [address] [place] [address] Social History Tobacco Use Types [...] OCCUPATIONAL THERAPIST NON-EXEMPT - 01/03/2021 14:34 EDT Restaurant Crew Person Goals, OT Grooming LTG Grid Goal #1 [...] Pt provided with squeeze ball for B oxygen therapy teacher strengthening. R UE positioned on pillow and [...]
--- OUTSIDE RECORDS SUMMARY | 2025-01-16 12:45 | XMS_ITS | Encounter Summary ---
Author Organization [facility] [employer] iatives Address [address] [place] [address] Care Team Providers Care Check Airman Name Role Phone Unavailable Primary Care Provider Unavailabl e Encounter Details Date Type Department Care Team (Late st Contact Info) Description 12/27/2020 Transcribed Document [facility] Pulm & Critical Care Medicine [address] [place] [address] [address] [place] [address] Willie Espinoza MD [address] [facility] [address] [place] [address] Social History Tobacco Use Types [...] Problems Aortic stenosis, severe / SNOMED CT 7785011225 / Confirmed Hypertension / SNOMED CT 68310217 / Confirmed Hyperlipidemia / SNOMED CT 47461208 / Confirmed HTN - Hypertension / SNOMED CT 9025240130 / Confirmed H/O peripheral neuropathy / SNOMED CT 977026527 / Confirmed feet tingle all the time GERD - Gastro-esophageal reflux disease / SNOMED CT 3051359211 / Confirmed Disorder of prostate / SNOMED CT 72915338 / Confirmed Colorectal surgery / SNOMED CT 8948237032 / Confirmed Back pain, chronic / SNOMED CT 419263626 / Confirmed Chronic anxiety / SNOMED CT 808843348 / Confirmed At risk for sleep apnea / IMO 71300120 / Confirmed Arthritis of right knee / SNOMED CT 0543437129 / Confirmed Aortic valve stenosis / SNOMED CT 906668044 / Confirmed Resolved: Cancer of colon / SNOMED CT 1854446626, Active Problems (13) Aortic stenosis, severe Aortic [...] 42.2 12/27/2020 12:11 pO2 Art POC 245.0 NV 12/27/2020 12:11 HCO3 Art POC 18.9 LOW 12/27/2020 12:11 tCO2 Art POC 20.0 LOW 12/27/2020 12:11 BE Art POC -8.0 LOW 12/27/2020 12:11 sO2 Art POC >99.9 HI 12/27/2020 12:11 ABG Num of Draw Attempts 12/27/2020 11:52 PaO2/FiO2 calculated 12/27/2020 11:52 Radiology Results (Last 48 hours) [id number] -- 12/27/2020 06:39 CR Chest 1 Vw [...]
--- OUTSIDE RECORDS SUMMARY | 2025-01-16 12:45 | XMS_ITS | Encounter Summary ---
Author Organization [facility] [email or web address] [facility] Address [address] [place] [address] Care Team Providers Care Runner Man Name Role Phone Unavailable Primary Care Provider Unavailabl e Encounter Details Date Type Department Care Team (Late st Contact Info) Description 01/02/2021 Transcribed Document [facility] [place] Family Medicine [address] [place] [address] ProviderMacrina MD [address] [place], [place] [address] Social History Tobacco Use Types Packs/Day Years [...]
--- OUTSIDE RECORDS SUMMARY | 2025-01-16 12:45 | XMS_ITS | Encounter Summary ---
Author Organization [facility] [employer] [facility] Address [address] [place] [address] Care Team Providers Care Interventionist Name Role Phone Unavailable Primary Care Provider Unavailabl e Encounter Details Date Type Department Care Team (Late st Contact Info) Description 01/01/2021 Transcribed Document [facility] Family Medicine [address] [place] [address] ProviderMacrina MD [address], [place] [id number] Social History Tobacco Use Types Packs/Day Years [...] On: 01/01/2021 14:45 EDT by SOPHY RM Rn-Law InstructorTurbinated Bone Grinder Progress Note Discharge Arrangements : Patient Post-Acute [...] : Clinical Condition of Patient SOPHY RM Rn-Law Instructor - 01/01/2021 14:45 EDT Narrative Progress Note [...] pending progress - likely rehab. SOPHY RM Rn-Law Instructor - 12/31/20 14:58:43 DCP TBD - pending progress; OP Cardiac Rehab referral placed thru [facility]. SOPHY RM Rn-Law Instructor - 12/28/20 12:42:03 SOPHY RM Rn-Law Instructor - 01/01/2021 14:45 EDT documented in this encounter Plan of Treatment Not on file documented as of this encounter Visit Diagnoses Not on filedocumented in this encounter
--- OUTSIDE RECORDS SUMMARY | 2025-01-16 12:45 | XMS_ITS | Encounter Summary ---
Author Organization [employer] In iatives Address [address] [place] [address] Care Team Providers Care Barrel Inspector Tight Name Role Phone Unavailable Primary Care Provider Unavailabl e Encounter Details Date Type Department Care Team (Late st Contact Info) Description 01/02/2021 Transcribed Document [address] [address] Abby Rodrigues MD [address] [place] [address] Social History Tobacco Use Types Packs/Day Years [...] Basic Information PCP: Robert Batista MD Primary Woolen Tester: Arthur Gomez MD Subjective Patient seen and [...] 24 Hours) Radiology Results (Last 48 hours) [id number] -- 12/27/2020 06:39 CR Abdomen 1 Vw [...] s/p pericardiocentesis and surgical repair of LV Mckee. PEA Arrest; CODE called 10 minutes to [...]
--- OUTSIDE RECORDS SUMMARY | 2025-01-16 12:45 | XMS_ITS | Encounter Summary ---
Author Organization [facility] Address [address] [place] [address] Care Team Providers Care Scientist Immunology Name Role Phone Unavailable Primary Care Provider Unavailabl e Encounter Details Date Type Department Care Team (Late st Contact Info) Description 01/03/2021 Transcribed Document [facility] [place] [facility] [place] [address] ProviderMacrina MD [address], [place] [id number] Social History Tobacco Use Types Packs/Day Years [...] 1012. 01/02/21: POD#6 Intubated and sedated on Rbolonqp841irt/hr and Precedex .6mcg/kg/min. He is also on [...] Non-distended, Normal bowel sounds. Integumentary: Warm, Dry, [place]. Neurologic: The pt is able to move [...]
--- OUTSIDE RECORDS SUMMARY | 2025-01-16 12:45 | XMS_ITS | Encounter Summary ---
Author Organization In [employer] Address [address] [place] [address] Care Team Providers Care Medical Billing Instructor Name Role Phone Unavailable Primary Care Provider Unavailabl e Encounter Details Date Type Department Care Team (Late st Contact Info) Description 01/01/2021 Transcribed Document [facility] [place] Family Medicine [address] [place] [address] ProviderMacrina MD [address] [place], [place] [address] Social History Tobacco Use Types Packs/Day Years Used Date Smoking Tobacco: Never Assessed Sex and Gender Information Value Date Recorded Sex Assigned at Not on file Legal Sex Male 1:13 PM CDT Gender Identity Not on file Sexual Orientation Not on file documented as of this encounter Miscellaneous Notes * Cerner Conversion Note - Historical ProviderMD - 01/01/2021 2:00 AM CDT Colorer Hides And Skins Details Entered On: 01/01/2021 6:36 EDT Performed [...]
--- OUTSIDE RECORDS SUMMARY | 2025-01-16 12:45 | XMS_ITS | Encounter Summary ---
Author Organization [facility] Address [address] [place] [address] Care Team Providers Care Re Dye Hand Name Role Phone Unavailable Primary Care Provider Unavailabl e Encounter Details Date Type Department Care Team (Late st Contact Info) Description 12/27/2020 Transcribed Document [facility] Family Medicine [facility] [place] [address] ProviderMacrina MD [address] [place] [address] Social History Tobacco Use Types [...] left ventricular tear. ANESTHESIA: General endotracheal anesthesia. PIERCER: Hao Salazar, Physician Bridge Tender. INDICATION FOR PROCEDURE: Mr. Francesco Adorno is [...] was then reapproximated using silk sutures. A 36-Argentine right angle chest tube was placed in [...] important to mention that there was a 36-Argentine right angle chest tube that was in [...] was transferred to the intensive care unit. /[id number] Cuauhtemoc Gresham MD HRM/AQ / HRM / MODL /[id number] CC: MD Arthur Carrington MD Electronically signed by Elmer [facility] Conversion Typists Supervisor Cerner at 11/10/2022 9:14 AM CDT documented in this encounter Plan of Treatment Not on file documented as of this encounter Visit Diagnoses Not on filedocumented in this encounter
--- OUTSIDE RECORDS SUMMARY | 2025-01-16 12:45 | XMS_ITS | Encounter Summary ---
Author Organization [facility] [employer] [facility] Address [address] [place] [address] Care Team Providers Care Direct Marketing Manager Name Role Phone Unavailable Primary Care Provider Unavailabl e Encounter Details Date Type Department Care Team (Late st Contact Info) Description 01/17/2021 Transcribed Document [facility] [place] Family Medicine [facility] [place] [address] ProviderMacrina MD [address] [place] [address] Social History Tobacco Use Types [...] On: 01/17/2021 15:35 EDT by ASHLEY CHAIDEZ RN-Residential Sales RepSupervising Producer Progress Note Discharge Arrangements : Patient Post-Acute Information Patient Name: JOSE ADORNO [facility]: [id number] Gender: Male : [birth year] Age: 80 Years [...] Attend Multidisciplinary Rounds? : Yes ASHLEY CHAIDEZ, RN-Residential Sales Rep - 01/17/2021 15:35 EDT Narrative Progress Note [...] Admission H&P by Cardiology. CM contacted Katherin PRINTER FLOOR COVERING ASSISTANT to confirm they would be writing discharge order and summary for patient discharge to [facility] tomorrow. DCP: [facility] tomorrow. Plan to transport by [facility]. Historical Progress Note : RAR Low [...] around bed to chair with RWx modA. MBBS/LOCOMOTIVE SUPERVISOR: Recommend PEG, plan is placement tomorrow. DCP: [facility] after PEG placed. Patient has traditional MC will not need a PA. Plan to transport by [facility]. ASHLEY CHAIDEZ RN-Residential Sales Rep - 01/16/21 17:33:58 RAR Low ELOS: 3 [...] with RWx modA. DCP: Referral made to [facility], patient's 1st choice, via [facility]. bao Barnes said her MD would accept patient but would like for his PEG to be placed prior to discharge. Patient has traditional Medicare so he will not need a preauth. ASHLEY CHAIDEZ RN-Residential Sales Rep - 01/14/21 15:53:43 HD#15; ELOS 3; LRR; BOOST 6; POD#15 - ElecTAVR/LVentTear/Tamponade = 02=1L; LV=217; TF/Corpak 50cc; voice improving; working w/ST for dysphagia; plan for repeat instrumental in 1 wk; ongoing therapy; spouse to provide choicing for STR; on transfer out of [facility]. SOPHY RM Rn-Residential Sales Rep - 01/11/21 09:38:52 HD#14; ELOS 3; LRR; BOOST 6; POD#14 - ElecTAVR/LVentTear/Tamponade = 02=2L; BIPAP prn; Duonebs; Cefepime/Zosyn; FEES today; Cardiology managing Tacycardia; per LOS recommendation - pt referred to LTAC; likely DCP subacute rehab; anticipate transfer to floor soon. SOPHY RM Rn-Residential Sales Rep - 01/10/21 08:19:07 HD#13; ELOS 3; LRR; BOOST 6; POD#13 - ElectiveTAVR/LVentTear/Tamponade - 02=2L; BIPAP prn for WOB/hs; Duonebs/IS/FVD encouraged; Patricio gtt; central line d/c //PICC placed; T=100; Maxipime; working with therapy - very weak; Mod-Max A x2 to EOB - not safe to stand; ST - failed/ongoing dysphagia tx; Corpak/TF; DCP rehab - improving. SOPHY RM Rn-Residential Sales Rep - 01/09/21 07:48:59 HD#12; ELOS 3; LRR; BOOST 6; POD #12 - Electiv TAVR/LVentTear/Cardiac Tamponade SOPHY RM Rn-Residential Sales Rep - 01/08/21 14:56:21 HD#12; ELOS 3; LRR; BOOST 6; POD #12 - Electiv TAVR/LVentTear/Cardiac Tamponade/Embolic Strokes w/ R side weakness; RA; IS/FVD encouraged; report pt with delerium/lethargy overnight - pulled out IV; PICC ordered today; R arm weakness; Corpak/TF - failed ST evaluation - improving; DCP Rehab; continue to follow SOPHY RM Rn-Residential Sales Rep - 01/08/21 14:58:32 HD#11; ELOS 3; MRR; BOOST 6; POD#11 - Elective TAVR/LVentTear/Cardiac Tamponade; 02=2L; Maxipime/Ancef; IV Bumex; working w/therapy and stood at side of bed; SOPHY RM Rn-Residential Sales Rep - 01/07/21 14:34:53 HD#11; ELOS 3; MRR; BOOST 6; POD#11 - Elective TAVR/LVentTear/Cardiac Tamponade; 02=2L; Maxipime/Ancef; IV Bumex; working w/therapy and stood at side of bed; ST - ongoing rec for NPO r/t dysphagia - tx; instrumental 3-4 days; Corpak/TF; DCP anticipate rehab; [facility] and list w/post acute star ratings provided to pt for choicing. SOPHY RM Rn-Residential Sales Rep - 01/07/21 14:36:37 HD#8; ELOS 3; LRR; BOOST 6; POD#8 - Elec TAVR/LVentTear/Cardiac Tamponade - intubated fi02 100; awake/calm/following commands; bronchoscopy scheduled today; SBT; T=101.2; MRI - diffuse scattered bilateral infarcts; Dr. Navarro states during MDR that if pt is unable to successfully wean over weekend will need trach/peg consult on Thursday; continue to follow; will need therapy evaluations when extubated. SOPHY RM Rn-Residential Sales Rep - 01/04/21 15:16:12 HD#7; ELOS 3; LRR; BOOST 6; POD#7 - Elective TAVR/LVentTear/CardiacTamponade/Arrest - intubated fi02 40/peep 8; SBT x 2 hr; Fent/Precedex gtt; Corpak/TF; Humza CT in place; Neurology following - MRI diffuse scattered bilateral infarcts; pt w/improvement in movement of R side; PT/OT evaluations when extubated; DCP TBD - likely rehab. SOPHY RM Rn-Residential Sales Rep - 01/03/21 15:03:09 HD#6; ELOS 3; LRR; BOOST 6; POD #6 - Electiv TAVR/L Vent Tear/Cardiac Tamponode/Arrest - reintubated 01/01; fi02 40; Levo/Fent/Precedex gtt; wean sedation - on SBT 2hr TID; T=99.9; Dr. Navarro states during MDR that pt's spouse aware may need trach/peg; DCP TBD pending progress. SOPHY RM Rn-Residential Sales Rep - 01/02/21 14:55:12 HD#5; ELOS 3; LRR; BOOST 6; POD #5 - Elective TAVR/L Ventrial Tear/Cardiac Tamponode; extubated on 6/7 required reintubation today fi02 60/peep 8; Precedex/Fent gtt; Corpak/TF; IV Zosyn; CT draining; T=100; DCP TBD pending progress; will need therapy evals when appropriate. SOPHY RM Rn-Residential Sales Rep - 01/01/21 14:47:57 HD#4; ELOS 3; LRR; POD#4 - Electiv TAVR; L Ventrical Tear; intubated fi02 50; Cardene gtt; Corpak to be placed and TF initiated; SBT today; following commands; Head MRI ordered; possible extubation post MRI; no movement noted on R side; will need PT/OT evaluations when extubated; DCP pending progress - likely rehab. SOPHY RM Rn-Residential Sales Rep - 12/31/20 14:58:43 DCP TBD - pending progress; OP Cardiac Rehab referral placed thru [facility]. SOPHY RM Rn-Residential Sales Rep - 12/28/20 12:42:03 ASHLEY CHAIDEZ RN-Residential Sales Rep - 01/17/2021 15:35 EDT Electronically signed by Elmer, [facility] Conversion Embalmer Apprentice Cerner at 11/10/2022 9:29 AM CDT documented in this encounter Plan of Treatment Not on file documented as of this encounter Visit Diagnoses Not on filedocumented in this encounter
--- OUTSIDE RECORDS SUMMARY | 2025-01-16 12:45 | XMS_ITS | Encounter Summary ---
Author Organization [employer] In [facility] Address [address] [place] [address] Care Team Providers Care Blueprint Maker Name Role Phone Unavailable Primary Care Provider Unavailshelly e Encounter Details Date Type Department Care Team (Late st Contact Info) Description 12/30/[address] [facility] [place] Family Medicine [address] [place] [address] ProviderMacrina MD [address] [place] [address] Social History Tobacco Use Types [...] 12/30/2020 9:21 EDT Electronically signed by Elmer [facility] Conversion Outside Rigger Guanaco at 11/10/2022 9:05 AM CDT documented in this encounter Plan of Treatment Not on file documented as of this encounter Visit Diagnoses Not on filedocumented in this encounter
--- OUTSIDE RECORDS SUMMARY | 2025-01-16 12:45 | XMS_ITS | Encounter Summary ---
Author Organization [facility] Address [address] [place] [address] Care Team Providers Care Chief Strategy Officer Name Role Phone Unavailable Primary Care Provider Unavailabl e Encounter Details Date Type Department Care Team (Late st Contact Info) Description 01/17/2021 Transcribed Document [facility] [place] Family Medicine [address] [place] [address] ProviderMacrina MD [address] [place] [address] Social History Tobacco Use Types Packs/Day Years Used Date Smoking Tobacco: Never Assessed Sex and Gender Information Value Date Recorded Sex Assigned at Not on file Legal Sex Male 1:13 PM CDT Gender Identity Not on file Sexual Orientation Not on file documented as of this encounter Miscellaneous Notes * Cerner Conversion Note - Macrina ProviderMD - 01/17/2021 11:12 AM CDT [facility] Endo IntraOp Summary Primary Physician: PEYTON BEATTY MD Finalized Date/Time: 01/17/21 11:36:17 Pt. Name: JOSE ADORNO Ade /Sex: 1940 Male Med Rec #: [id number] Physician: DANYELLE WALTERS MD-CAR Financial #: [id number] Pt. Type: I Room/Bed: [facility]/ Admit/Disch: 12/27/20 06:39:00 - Institution: [facility] Endo - Case Attendance Entry 1 Entry 2 Entry 3 Case Attendee PEYTON BEATTY MD Johnson, Kaitlyn G, RN PRESCOTT, JACHELE, Fire Equipment Inspector Role Performed Surgeon/Proceduralist, Through Operator, First Scrub, First First Time In 01/17/21 [...] A, CRNA Poff, Janie, RN Student Nurse Central Office Repairer Role Performed Student MEDICAL SPECIALIST/Nurse Central Office Repairer Through Operator, Second Time In 01/17/21 11:00:00 01/17/21 11:00:00 [...] Sunshine I, Claudia Kolb CORNEA, MIHAELA, MD-SEB Motion Graphics Designer Role Performed Through Operator, Third Scrub, Second Anesthesiologist of Record Time [...] RN 01/17/21 11:33:50 01/17/21 11:33:50 01/17/21 11:33:50 [facility] Endo - Case Attendance Audit 01/17/21 11:33:50 Production Line Technician: [id number] Modifier: [id number] 1 <*> Procedure Esophagogastroduodenoscopy, EGD w Peg [...] EGD w Peg Tube Placement 01/17/21 11:33:45 Production Line Technician: [id number] Modifier: [id number] 1 <*> Procedure Esophagogastroduodenoscopy, EGD w Peg [...] EGD w Peg Tube Placement 01/17/21 11:32:06 Production Line Technician: [id number] Modifier: [id number] <+> 2 Case Attendee <+> 2 Role [...] Time In <+> 9 Procedure 01/17/21 11:32:05 Production Line Technician: [id number] Modifier: [id number] <+> Time In 1 <+> Time Out 1 <*> Procedure Esophagogastroduodenoscopy, EGD w Peg Tube Placement [facility] Endo - Case times Entry 1 Patient In Room Time 01/17/21 11:00:00 Out Room Time 01/17/21 11:24:00 Anesthesia Start Time 01/17/21 11:00:00 Stop Time 01/17/21 11:20:00 Surgery / Procedure Times Start Time 01/17/21 11:12:00 Stop Time 01/17/21 11:20:00 Last Modified By: Jerri Argueta RN 01/17/21 11:29:18 [facility] Endo - Delays Entry 1 Delay Reason Other Duration 0 Minute(s) Last Modified By: Jerri Argueta RN 01/17/21 11:32:11 [facility] Endo - Departure from OR Entry 1 Integumentary Assessment Integumentary WDL Assessment WDL Transfer/Handoff Transfer to PACU Phase I Post-op Transport Stretcher/Gurney Via Patient Transport Jerri Argueta RN, Accompanied by ZHANNA CASTILLO CRNA Last Modified By: Jerri Argueta RN 01/17/21 11:32:12 [facility] Endo - Endoscopy Details Entry 1 Abdomen Procedure Soft, Non-Tender Assessment Procedure Abdomen 01/17/21 11:01:00 Assessment D/T Radio Frequency Ablation Abdominal Pressure Last Modified By: Jerri Argueta RN 01/17/21 11:32:17 [facility] Endo - Fire Risk Assessment Entry 1 [...] Modified By: Jerri Argueta RN 01/17/21 11:32:32 [facility] Endo - General Case Heel Curver 1 Case Information OR Out of Department [facility] Case Level 1 Room Verified Yes Wound Class II - Clean-Contaminated Specialty General Anesthesia Type MAC ASA Class 4 Diagnosis Preop Diagnosis dysphagia Postop Same As Preop Yes Postop Diagnosis dysphagia Last Modified By: Jerri Argueta RN 01/17/21 11:32:54 [facility] Endo - Implant Log Entry 1 Type Implant (Synthetic) Implant Log Implant [id number] Identification Description Implant Quantity 1 Implant [id number] Identification Lot Number Implant Has an Yes Expiration Date Implant Expiration 04/19/22 Date Tissue Implant Last Modified By: Jerri Argueta RN 01/17/21 11:35:37 [facility] Endo - Intraoperative Assessment Entry 1 Valid History / Yes Physical in Chart Preoperative Yes Checklist Reviewed/Evaluated Patient is Latex No Sensitive Level of WDL Consciousness (WDL = Alert, Oriented to Person, Place, and Time) Last Modified By: Jerri Argueta RN 01/17/21 11:32:57 [facility] Endo - Intraoperative Equipment Entry 1 Equipment Intraop Monitoring Electrocardiogram Three lead placement (ECG) Electrode Placement Blood Pressure Arm, left upper Location Pulse Oximeter Hand, right Probe Site Antiembolic Devices Scopes Flexible Endoscopes Gastroscope Used Scope Serial e Number/Identificatio n Number Photo/Video Documentation Photo Yes Video No Last Modified By: Jerri Argueta RN 01/17/21 11:33:29 [facility] Endo - Patient Positioning Entry 1 Procedure [...] Modified By: Jerri Argueta RN 01/17/21 11:33:51 [facility] Endo - Patient Positioning Audit 01/17/21 11:33:51 Production Line Technician: [id number] Modifier: [id number] 1 <*> Procedure EGD w Peg Tube Placement [facility] Endo - Sign In Entry 1 Patient, Site, Yes Procedure Identified Surgical Consent Yes Confirmed Surgical Site N/A Marked by person performing procedure Airway Hypothermia Risk No Warming Measures No Taken Last Modified By: Jerri Argueta RN 01/17/21 11:33:42 [facility] Endo - Sign Out Entry 1 RN [...] Modified By: Jerri Argueta RN 01/17/21 11:36:12 [facility] Endo - Sign Out Audit 01/17/21 11:36:12 Production Line Technician: [id number] Modifier: [id number] <+> 1 Urinary Catheter Documented in IView [facility] Endo - Surgical Procedures Entry 1 Procedure EGD w Peg Tube Placement Primary Procedure Yes Primary Surgeon PEYTON BEATTY MD Start 01/17/21 11:12:00 Stop 01/17/21 11:20:00 Anesthesia Type MAC Specialty General Wound Class II - Clean-Contaminated Last Modified By: Jerri Argueta RN 01/17/21 11:33:59 [facility] Endo - Time Out Entry 1 Procedure [...] Signed By: Jerri Argueta RN 01/17/21 11:36 documented in this encounter Plan of Treatment Not on file documented as of this encounter Visit Diagnoses Not on filedocumented in this encounter
--- OUTSIDE RECORDS SUMMARY | 2025-01-16 12:45 | XMS_ITS | Encounter Summary ---
Author Organization [facility] Address [address] [place] [address] Care Team Providers Care Switchboard Wire Worker Helper Name Role Phone Unavailable Primary Care Provider Unavailabl e Encounter Details Date Type Department Care Team (Late st Contact Info) Description 01/02/2021 Transcribed Document [facility] [place] Family Medicine [address] [place] [address] ProviderMacrina MD [address], [place] [id number] Social History Tobacco Use Types Packs/Day Years [...] On: 01/02/2021 14:52 EDT by SOPHY RM Rn-Skin Care TechnicianConcrete Floor Installer Progress Note Discharge Arrangements : Patient [...] : Clinical Condition of Patient SOPHY RM Rn-Skin Care Technician - 01/02/2021 14:52 EDT Narrative Progress Note [...] need therapy evals when appropriate. SOPHY RM Rn-Skin Care Technician - 01/01/21 14:47:57 HD#4; ELOS 3; LRR; POD#4 - Electiv TAVR; L Ventrical Tear; intubated fi02 50; Cardene gtt; Corpak to be placed and TF initiated; SBT today; following commands; Head MRI ordered; possible extubation post MRI; no movement noted on R side; will need PT/OT evaluations when extubated; DCP pending progress - likely rehab. SOPHY RM Rn-Skin Care Technician - 12/31/20 14:58:43 DCP TBD - pending progress; OP Cardiac Rehab referral placed thru [facility]. SOPHY RM Rn-Skin Care Technician - 12/28/20 12:42:03 SOPHY RM Rn-Skin Care Technician - 01/02/2021 14:52 EDT Electronically signed by Olinda Payne Conversion Electrical Instrumentation Technician Cerner at 11/10/2022 9:28 AM CDT documented in this encounter Plan of Treatment Not on file documented as of this encounter Visit Diagnoses Not on filedocumented in this encounter
--- OUTSIDE RECORDS SUMMARY | 2025-01-16 12:45 | XMS_ITS | Encounter Summary ---
Author Organization [employer] [facility] [employer] Address [address] [place] [address] Care Team Providers Care Pre Kindergarten Teacher Name Role Phone Unavailable Primary Care Provider Unavailabl e Encounter Details Date Type Department Care Team (Late st Contact Info) Description 01/07/2021 Transcribed Document [facility] Cardiology [address] [place] [address] Danyelle Gomez MD [address] [facility] [address] [place] [id number] Social History Tobacco Use Types Packs/Day Years [...] Basic Information PCP: Robert Batista MD Primary Set Off Press Operator: Danyelle Gomez MD Subjective Extubated 01/05/21, sitting [...] (Current Encounter/Past 24 Hours) ProBNP 5653 pg/mL MS 01/07/2021 05:56 Radiology Results (Last 48 hours) [id number] -- 12/27/2020 06:39 CT Thoracentesis w/ IMAG Guid RT (01/05/2021 11:30) Result: CT-GUIDED THORACENTESISHISTORY: Pleural effusion.ATTENDING PHYSICIAN: Dr. Youssef GENERAL ACTIVITIES THERAPIST: LUCÍA Cantor-CTECHNIQUE: Informed consent was obtained from [...] s/p pericardiocentesis and surgical repair of LV [place]. PEA Arrest; CODE called 10 minutes to [...]
--- OUTSIDE RECORDS SUMMARY | 2025-01-16 12:45 | XMS_ITS | Encounter Summary ---
Author Organization [facility] Address [address] [place] [address] Care Team Providers Care Gridcap Machine Operator Name Role Phone Unavailable Primary Care Provider Unavailabl e Encounter Details Date Type Department Care Team (Late st Contact Info) Description 12/29/2020 Transcribed Document [facility] [place] Family Medicine [address] [place] [address] ProviderMacrina MD [address] [place], [place] 455381 Social History Tobacco Use Types Packs/Day Years [...] RAMIREZ, YAJAIRA, SHYAM - 12/29/2020 17:37 EDT documented in this encounter Plan of Treatment Not on file documented as of this encounter Visit Diagnoses Not on filedocumented in this encounter
--- OUTSIDE RECORDS SUMMARY | 2025-01-16 12:45 | XMS_ITS | Encounter Summary ---
Author Organization [facility] [employer] [facility] Address [address] [place] [address] Care Team Providers Care Loom Doffer Name Role Phone Unavailable Primary Care Provider Unavailabl e Encounter Details Date Type Department Care Team (Late st Contact Info) Description 01/03/2021 Transcribed Document [facility] [place] Family Medicine [address] [place] [address] ProviderMacrina MD [address] [place] [address] Social History Tobacco Use Types Packs/Day Years [...]
--- OUTSIDE RECORDS SUMMARY | 2025-01-16 12:46 | XMS_ITS | Encounter Summary ---
Author Organization [employer] [facility] Address [address] [place] [address] Care Team Providers Care Care Assistant Name Role Phone Unavailable Primary Care Provider Unavailabl e Encounter Details Date Type Department Care Team (Late st Contact Info) Description 12/05/2020 Transcribed Document [facility] Pulm & Critical Care Medicine [address] [place] [address] [address] [place] [address] Erick Navarro MD [address] [facility] [address] [place] [address] Social History Tobacco Use Types [...] obesity, but the patient's BMI is 22.79. /[id number] MD CARLOS Hernandez/STACIE / CARLOS / MODL /[id number] documented in this encounter Plan of Treatment Not on file documented as of this encounter Visit Diagnoses Not on filedocumented in this encounter
--- OUTSIDE RECORDS SUMMARY | 2025-01-16 12:46 | XMS_ITS | Encounter Summary ---
Author Organization [employer] In [facility] Address [address] [place] [address] Care Team Providers Care Lace Machine Operator Name Role Phone Unavailable Primary Care Provider Unavailabl e Encounter Details Date Type Department Care Team (Late st Contact Info) Description 09/19/2019 Transcribed Document [facility] [place] [address] [place] [address] ProviderMacrina MD [address] [place] [address] Social History Tobacco Use Types Packs/Day Years Used Date Smoking Tobacco: Never Assessed Sex and Gender Information Value Date Recorded Sex Assigned at Not on file Legal Sex Male 1:13 PM CDT Gender Identity Not on file Sexual Orientation Not on file documented as of this encounter Miscellaneous Notes * Cerner Conversion Note - Macrina ProviderMD - 09/19/2019 1:28 PM POSITION DESCRIPTION MANAGER Pre Procedure Adult Entered On: 09/19/2019 13:29 EST Performed On: 09/19/2019 13:28 EST by CELESTINA ALVARADO RN Height and Weight, Clinical Dosing Height Source : Stated Height Entry Format : Putnam Height, Feet : 5 ft(Converted to: 152 cm, 60 Inch) Height, Inches : 8 Inch(Converted to: 0 ft 8 Inch, 20.32 cm) Clinical Height : 172.72 cm Weight Source : Standing scale Weight Entry Format : Putnam Clinical Dosing Weight : 62.27 kg Weight, Pounds : 137 lb Body Surface Area (BSA) : 1.74 m2 Body Mass Index : 20.9 kg/m2 Lyndon Body Weight : 67 kg CELESTINA ALVARADO [...] - 09/19/2019 13:28 EST Electronically signed by [facility], [facility] Conversion Adobe Developer Cerner at 11/10/2022 9:26 AM CDT documented in this encounter Plan of Treatment Not on file documented as of this encounter Visit Diagnoses Not on filedocumented in this encounter
--- OUTSIDE RECORDS SUMMARY | 2025-01-16 12:46 | XMS_ITS | Encounter Summary ---
Author Organization [facility] Address [address] [place] [address] Care Team Providers Care Chief Ii Dispatcher Name Role Phone Unavailable Primary Care Provider Unavailabl e Encounter Details Date Type Department Care Team (Late st Contact Info) Description 01/18/2021 Transcribed Document [facility] [place] Family Medicine [address] [place] [address] ProviderMacrina MD [address] [place], [place] 975721 Social History Tobacco Use Types Packs/Day Years [...] pt report given to Maryann HOWE @ [facility] via phone pt to be picked up by [facility] van @ 3517. Misty Schmitt Lpn - 01/18/2021 15:37 EDT Electronically signed by [facility] Conversion Email Administrator Guanaco at 11/10/2022 9:23 AM CDT documented in this encounter Plan of Treatment Not on file documented as of this encounter Visit Diagnoses Not on filedocumented in this encounter
--- OUTSIDE RECORDS SUMMARY | 2025-01-16 12:46 | XMS_ITS | Encounter Summary ---
Author Organization [facility] Address [address] [place] [address] Care Team Providers Care Gear And Spline Grinder Name Role Phone Unavailable Primary Care Provider Unavailabl e Encounter Details Date Type Department Care Team (Late st Contact Info) Description 11/15/2019 Transcribed Document [facility] [place] Family Medicine [address] [place] [address] ProviderMacrina MD [address] [place], [place] [id number] Social History Tobacco Use Types Packs/Day Years [...] JASON TAVAREZ RN - 11/15/2019 13:53 EDT Electronically signed by Olinda Payne Conversion Shotgun Shell Loading Machine Operator Cerner at 11/10/2022 9:06 AM CDT documented in this encounter Plan of Treatment Not on file documented as of this encounter Visit Diagnoses Not on filedocumented in this encounter
--- OUTSIDE RECORDS SUMMARY | 2025-01-16 12:46 | XMS_ITS | Encounter Summary ---
Author Organization [employer] Address [address] [place] [address] Care Team Providers Care Cnc Supervisor Name Role Phone Unavailable Primary Care Provider Unavailabl e Encounter Details Date Type Department Care Team (Late st Contact Info) Description 12/30/2020 Transcribed Document [address] [address] Abby Rodrigues MD [address] [place] [address] Social History Tobacco Use Types Packs/Day Years [...] Information PCP: Robert Batista MD Primary Motor Bike Mechanic: Arthur Gomez MD Subjective on vent. moving [...] 24 Hours) Radiology Results (Last 48 hours) [id number] -- 12/27/2020 06:39 CR Chest 1 Vw [...] s/p pericardiocentesis and surgical repain of LV [place]. PEA Arrest; CODE called 10 minutes to [...]
--- OUTSIDE RECORDS SUMMARY | 2025-01-16 12:46 | XMS_ITS | Encounter Summary ---
Author Organization [facility] Address [address] [id number] Care Team Providers Care Hvac Service Technician Name Role Phone Robert Batista MD Primary Care Provider [phone] Encounter Details Date Type Department Care Team (Late Contact Info) Description 12/15/2022 Orders Only External Location [address] [place] [address] Christiano Rm MD [address] [place] [address] Social History Tobacco Use Types Packs/Day [...] AM EDT Appointment [facility] Radiology [address] [place] [address] 02/06/2025 10:45 AM EDT Office Visit [facility] [address] [place] [address] Darell Turcios MD [address] [facility] [address] [place] [address] 02/13/2025 12:50 PM EDT Consult [facility] U[facility] [address] [place] [address] Tari Christie PA [address] [place] [address] documented as of this encounter Procedures Procedure [...] on filedocumented in this encounter Care Teams Hvac Service Technician Relationship Specialty Start Date End Date Robert Batista MD [address] [place] [address] [address] [place] [address] PCP - General 12/07/20 documented as of this encounter
--- OUTSIDE RECORDS SUMMARY | 2025-01-16 12:46 | XMS_ITS | Encounter Summary ---
Author Organization [facility] [employer] [facility] Address [address] [place] [address] Care Team Providers Care Stripper Apprentice Name Role Phone Unavailable Primary Care Provider Unavailabl e Encounter Details Date Type Department Care Team (Late st Contact Info) Description 01/18/2021 Transcribed Document [facility] [place] Family Medicine [address] [place] [address] ProviderMacrina MD [address] [place], [place] [address]551 Social History Tobacco Use Types Packs/Day Years [...] : 01/18: RD f/up. Pt discharging to [facility] today. S/p PEG placement on 01/17. RN reports TF was resumed this morning at 5AM and currently running @ 35ml/hr. Pt is tolerating well per RN with no residuals. Tamy Wolff Dietitian - 01/18/2021 12:41 EDT Electronically signed by Olinda Payne Conversion Pharmacy Technician Program Director Guanaco at 11/10/2022 9:25 AM CDT documented in this encounter Plan of Treatment Not on file documented as of this encounter Visit Diagnoses Not on filedocumented in this encounter
--- OUTSIDE RECORDS SUMMARY | 2025-01-16 12:46 | XMS_ITS | Encounter Summary ---
Author Organization [facility] Address [address] [place] [address] Care Team Providers Care Social Media Campaign Manager Name Role Phone Unavailable Primary Care Provider Unavailabl e Encounter Details Date Type Department Care Team (Late st Contact Info) Description 12/29/2020 Transcribed Document [facility] Pulm & Critical Care Medicine [address] [place] [address] [address] [place] [address] Kapil River MD [address] [facility] [address] [place] [address] Social History Tobacco Use Types [...] 05) H 85 (CESAR 04) H 108 (CSEAR 03) H 203 (CESAR 03) ALK P [...] 12/29/2020 04:43 Radiology Results (Last 48 hours) [id number] -- 12/27/2020 06:39 CR Chest 1 Vw [...] and dictated by Dr. Karina Crowley.Transcribed by Mnyor Moran(R).I have personally viewed, interpreted and dictated [...] critical care time excluding procedures. Discussed with ACUPRESSURE THERAPIST: RN and patient's at bedside. documented in this encounter Plan of Treatment Not on file documented as of this encounter Visit Diagnoses Not on filedocumented in this encounter
--- OUTSIDE RECORDS SUMMARY | 2025-01-16 12:46 | XMS_ITS | Encounter Summary ---
Author Organization [employer] [facility] Address [address] [place] [address] Care Team Providers Care Blow Mold Operator Name Role Phone Unavailable Primary Care Provider Unavailabl e Encounter Details Date Type Department Care Team (Late st Contact Info) Description 01/07/2021 Transcribed Document [facility] [place] Family Medicine [address] [place] [address] ProviderMacrina MD [address] [place] [address] Social History Tobacco Use Types [...]
--- OUTSIDE RECORDS SUMMARY | 2025-01-16 12:46 | XMS_ITS | Encounter Summary ---
Author Organization [facility] [employer] [facility] Address [address] [place] [address] Care Team Providers Care Pocket Flap Creasing Machine Operator Name Role Phone Unavailable Primary Care Provider Unavailabl e Encounter Details Date Type Department Care Team (Late st Contact Info) Description 12/25/2020 Transcribed Document [facility] [place] [address] [place] [address] ProviderMacrina MD [address] [place], [place] 373591 Social History Tobacco Use Types Packs/Day Years [...] Empathic/Engaged listening, Family/Significant other supported Spiritual and Cheondoism : Prayer shared, Spiritual/Cheondoism support provided BRISSA SULLIVAN - 12/27/2020 7:08 EDT documented in this encounter Plan of Treatment Not on file documented as of this encounter Visit Diagnoses Not on filedocumented in this encounter
--- OUTSIDE RECORDS SUMMARY | 2025-01-16 12:46 | XMS_ITS | Encounter Summary ---
Author Organization [facility] Address [address] [place] [address] Care Team Providers Care Pressurizer Name Role Phone Unavailable Primary Care Provider Unavailabl e Encounter Details Date Type Department Care Team (Late st Contact Info) Description 01/08/2021 Transcribed Document [facility] [place] Family Medicine [facility] [place] [address] ProviderMacrina MD [address], [place] [id number] Social History Tobacco Use Types Packs/Day Years [...] 1012. 01/02/21: POD#6 Intubated and sedated on [id number]/hr and Precedex .6mcg/kg/min. He is also on [...] and I know he just worked with [employer]. Health Status Allergies: Allergic Reactions (Selected) No [...]
--- OUTSIDE RECORDS SUMMARY | 2025-01-16 12:46 | XMS_ITS | Referral Summary ---
Author Organization [facility] In [facility] Address [address] [place] [address] Care Team Providers Care Technical Producer Name Role Phone Unavailable Primary Care Provider [...] Date Derek rded Speak language other than Sammarinese at home Not on file 02/17/2024 Want [...] [place] [address] [facility] MEDICARE ADVANTAGE
--- OUTSIDE RECORDS SUMMARY | 2025-01-16 12:46 | XMS_ITS | Encounter Summary ---
Author Organization [facility] Address [address] [place] [address] Care Team Providers Care Farm Loan Representative Name Role Phone Unavailable Primary Care Provider Unavailabl e Encounter Details Date Type Department Care Team (Late st Contact Info) Description 01/07/2021 Transcribed Document [facility] [place] Family Medicine [address] [place] [address] ProviderMacrina MD [address] [place], [place] [id number] Social History Tobacco Use Types Packs/Day Years [...] On: 01/07/2021 14:33 EDT by SOPHY RM Rn-Regional LiaisonCommunity Service Patrol Officer Progress Note Discharge Arrangements : Patient [...] : Clinical Condition of Patient SOPHY RM Rn-Regional Liaison - 01/07/2021 14:33 EDT Narrative Progress Note [...] provided to pt for choicing. SOPHY RM Rn-Regional Liaison - 01/07/2021 14:35 EDT Historical Progress Note [...] need therapy evaluations when extubated. SOPHY RM Rn-Regional Liaison - 01/04/21 15:16:12 HD#7; ELOS 3; LRR; BOOST 6; POD#7 - Elective TAVR/LVentTear/CardiacTamponade/Arrest - intubated fi02 40/peep 8; SBT x 2 hr; Fent/Precedex gtt; Corpak/TF; Humza CT in place; Neurology following - MRI diffuse scattered bilateral infarcts; pt w/improvement in movement of R side; PT/OT evaluations when extubated; DCP TBD - likely rehab. SOPHY RM, Rn-Regional Liaison - 01/03/21 15:03:09 HD#6; ELOS 3; LRR; BOOST 6; POD #6 - Electiv TAVR/L Vent Tear/Cardiac Tamponode/Arrest - reintubated 01/01; fi02 40; Levo/Fent/Precedex gtt; wean sedation - on SBT 2hr TID; T=99.9; Dr. Navarro states during MDR that pt's spouse aware may need trach/peg; DCP TBD pending progress. SOPHY RM Rn-Regional Liaison - 01/02/21 14:55:12 HD#5; ELOS 3; LRR; BOOST 6; POD #5 - Elective TAVR/L Ventrial Tear/Cardiac Tamponode; extubated on 12/31 required reintubation today fi02 60/peep 8; Precedex/Fent gtt; Corpak/TF; IV Zosyn; CT draining; T=100; DCP TBD pending progress; will need therapy evals when appropriate. SOPHY RM Rn-Regional Liaison - 01/01/21 14:47:57 HD#4; ELOS 3; LRR; POD#4 - Electiv TAVR; L Ventrical Tear; intubated fi02 50; Cardene gtt; Corpak to be placed and TF initiated; SBT today; following commands; Head MRI ordered; possible extubation post MRI; no movement noted on R side; will need PT/OT evaluations when extubated; DCP pending progress - likely rehab. SOPHY RM Rn-Regional Liaison - 12/31/20 14:58:43 DCP TBD - pending progress; OP Cardiac Rehab referral placed thru [facility]. SOPHY RM Rn-Regional Liaison - 12/28/20 12:42:03 SOPHY RM Rn-Regional Liaison - 01/07/2021 14:33 EDT documented in this encounter Plan of Treatment Not on file documented as of this encounter Visit Diagnoses Not on filedocumented in this encounter
--- OUTSIDE RECORDS SUMMARY | 2025-01-16 12:46 | XMS_ITS | Encounter Summary ---
Author Organization [facility] Address [address] [place] [address] Care Team Providers Care Ged Tutor Name Role Phone Unavailable Primary Care Provider Unavailabl e Encounter Details Date Type Department Care Team (Late st Contact Info) Description 12/03/2020 Transcribed Document [facility] [place] [address] [place] [address] ProviderMacrina MD [address] [place], [place] 6834[address] Social History Tobacco Use Types Packs/Day Years [...]
--- OUTSIDE RECORDS SUMMARY | 2025-01-16 12:46 | XMS_ITS | Encounter Summary ---
Author Organization [facility] Address [address] [place] [address] Care Team Providers Care Video Conference Specialist Name Role Phone Unavailable Primary Care Provider Unavailabl e Encounter Details Date Type Department Care Team (Late st Contact Info) Description 12/27/2020 Transcribed Document [facility] [place] Family Medicine [facility] [place] [address] ProviderMacrina MD [address] [place], [place] [id number] Social History Tobacco Use Types Packs/Day Years [...] Problems Aortic stenosis, severe / SNOMED CT 3713830132 / Confirmed Hypertension / SNOMED CT 33299570 / Confirmed Hyperlipidemia / SNOMED CT 82286806 / Confirmed HTN - Hypertension / SNOMED CT 2967471063 / Confirmed H/O peripheral neuropathy / SNOMED CT 751606670 / Confirmed feet tingle all the time GERD - Gastro-esophageal reflux disease / SNOMED CT 0575160878 / Confirmed Disorder of prostate / SNOMED CT 88992746 / Confirmed Colorectal surgery / SNOMED CT 6828982605 / Confirmed Back pain, chronic / SNOMED CT 075223933 / Confirmed Chronic anxiety / SNOMED CT 274173785 / Confirmed At risk for sleep apnea / IMO 58068075 / Confirmed Arthritis of right knee / SNOMED CT 3125055025 / Confirmed Aortic valve stenosis / SNOMED CT 428841424 / Confirmed Resolved: Cancer of colon / SNOMED CT 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
--- OUTSIDE RECORDS SUMMARY | 2025-01-16 12:46 | XMS_ITS | Encounter Summary ---
Author Organization [facility] Address [address] [place] [address] Care Team Providers Care Member Of The Legislative Council Name Role Phone Unavailable Primary Care Provider Unavailabl e Encounter Details Date Type Department Care Team (Late st Contact Info) Description 01/18/2021 Transcribed Document [facility] [place] [address] [place] [address] ProviderMacrina MD [address] [place] [address] Social History Tobacco Use Types [...]
--- OUTSIDE RECORDS SUMMARY | 2025-01-16 12:46 | XMS_ITS | Encounter Summary ---
Author Organization [employer] [facility] Address [address] [place] [address] Care Team Providers Care Knifer Up Name Role Phone Unavailable Primary Care Provider Unavailabl e Encounter Details Date Type Department Care Team (Late st Contact Info) Description 12/29/2020 Transcribed Document [facility] [place] [address] [place] [address] ProviderMacrina MD [address] [place] [address] Social History Tobacco Use Types [...] AAT to goal at 50ml/hr + 1 [id number] daily (provides 1710kcal, 83g PRO). D/c D5W [...]
--- OUTSIDE RECORDS SUMMARY | 2025-01-16 12:46 | XMS_ITS | Encounter Summary ---
Author Organization [employer] [facility] Address [address] [place] [address] Care Team Providers Care Customer Service Voice Name Role Phone Unavailable Primary Care Provider Unavailabl e Encounter Details Date Type Department Care Team (Late st Contact Info) Description 01/08/2021 Transcribed Document [facility] [place] [address] [place] [address] ProviderMacrina MD [address] [place] [address] Social History Tobacco Use Types [...] Regimen Comment : 01/08: high f/up. Per TAG MACHINE OPERATOR notes, pt not ready for instrumental. TF [...] Continue Osmolite 1.5 @ 50ml/hr + 1 [id number] daily (provides 1710kcal, 83g PRO). If pt [...] 01/08/2021 11:40 EDT Electronically signed by Elmer [facility] Conversion Printing Machine Mechanic Cerner at 11/10/2022 9:07 AM CDT documented in this encounter Plan of Treatment Not on file documented as of this encounter Visit Diagnoses Not on filedocumented in this encounter
--- OUTSIDE RECORDS SUMMARY | 2025-01-16 12:46 | XMS_ITS | Encounter Summary ---
Author Organization [facility] In iatives Address [address] [place] [address] Care Team Providers Care Wind Farm Engineer Name Role Phone Unavailable Primary Care Provider Unavailabl e Encounter Details Date Type Department Care Team (Late st Contact Info) Description 01/08/2021 Transcribed Document [facility] [place] Family Medicine [address] [place] [address] ProviderMacrina MD [address] [place] [address] Social History Tobacco Use [...] : Yes Central Line Insertion Facility : [facility] Central Line Insertion Start Date/Time : 01/08/2021 11:13 EDT Central Catheter Type : Power injection PICC Central Line Lot Number : [id number] Central Line Vessel Cannulated : Brachial vein [...]
--- OUTSIDE RECORDS SUMMARY | 2025-01-16 12:46 | XMS_ITS | Encounter Summary ---
Author Organization [facility] Address [address] [place] [address] Care Team Providers Care Electrical Discharge Machine Operator Name Role Phone Unavailable Primary Care Provider Unavailabl e Encounter Details Date Type Department Care Team (Late st Contact Info) Description 12/27/2020 Transcribed Document [facility] [place] Family Medicine [address] [place] [address] ProviderMacrina MD [address] [place] [address] Social History Tobacco Use Types Packs/Day Years [...] 12/27/2020 20:44 EDT Electronically signed by Elmer [facility] Conversion Shot Bagger Guanaco at 11/10/2022 9:19 AM CDT documented in this encounter Plan of Treatment Not on file documented as of this encounter Visit Diagnoses Not on filedocumented in this encounter
--- OUTSIDE RECORDS SUMMARY | 2025-01-16 12:46 | XMS_ITS | Encounter Summary ---
Author Organization [facility] Address [address] [place] [address] Care Team Providers Care Slitter And Rewinder Name Role Phone Unavailable Primary Care Provider Unavailabl e Encounter Details Date Type Department Care Team (Late st Contact Info) Description 01/18/2021 Transcribed Document [facility] [place] Family Medicine Counts include 234 beds at the [facility] [address] ProviderMacrina MD [address] [place], [place] [id number] Social History Tobacco Use Types Packs/Day Years [...] 1012. 01/02/21: POD#6 Intubated and sedated on [id number]/hr and Precedex .6mcg/kg/min. He is also on [...] 2L/NC TF 50ml/hr Continue P.T. Transfer to [facility] Pt will need rehab when clinically ready 01/11/21 POD#15 O2 91% 2L/NC TF 50ml/hr Continue P.T. Awaiting transfer to [facility] 01/12/2021 POD #16 Continues tube feedings, tolerating Steady progress 01/13/2021 POD #17 ALINA Spence Will need rehab placement 01/14/2021 POD #18 Patient still not cleared for PO [facility] has accepted the patient, but he needs a PEG. Will consult general surgery for PEG placement prior to transfer to [facility] 01/15/2021 POD #19 Planning to repeat swallow evaluation. Depending on results, may require PEG prior to transfer to [facility]. 01/16/2021: POD #20 Continue tube feedings PEG tomorrow per Dr. Rodriguez Spoke with , will contact [facility] tomorrow for bed availability once PEG is placed. 01/17/2021: POD #21 Failed swallow evaluation yesterday For PEG placement today. [facility] after PEG placement today if bed available. 01/18/21: POD #22 PEG yesterday [facility] today Follow up with Dr. Solorzano two [...] Diagnosis, Medical. Electronically signed by Elmer [facility] Conversion Bush [employer] Fruit Crop Farmer Cerner at 11/10/2022 9:21 AM CDT documented in this encounter Plan of Treatment Not on file documented as of this encounter Visit Diagnoses Not on filedocumented in this encounter
--- OUTSIDE RECORDS SUMMARY | 2025-01-16 12:46 | XMS_ITS | Encounter Summary ---
Author Organization [employer] [facility] Address [address] [place] [address] Care Team Providers Care Track Mechanic Name Role Phone Unavailable Primary Care Provider Unavailabl e Encounter Details Date Type Department Care Team (Late st Contact Info) Description 12/27/2020 Transcribed Document [facility] [place] Family Medicine [address] [place] [address] ProviderMacrina MD [address] [place] [address] Social History Tobacco Use Types [...] Source : Measured Height Entry Format : [place] Height, Feet : 0 ft Height, Inches [...]
--- OUTSIDE RECORDS SUMMARY | 2025-01-16 12:46 | XMS_ITS | Encounter Summary ---
Author Organization [facility] In iatives Address [address] [place] [address] Care Team Providers Care Dock Attendant Name Role Phone Unavailable Primary Care Provider Unavailabl e Encounter Details Date Type Department Care Team (Late st Contact Info) Description 12/27/2020 Transcribed Document [facility] Cardiology [address] [place] [address] Enrique Valle MD [address] [facility] [address] [place] [id number] Social History Tobacco Use Types Packs/Day Years [...] first and second operators. As a third aviation warfare systems operator participated in the procedure including image interpretation, vascular access and closure, preparation of wires and catheters and verification of valve orientation. This procedure was going as planned until the time when the valve was across the [place] aortic valve and being positioned when the [...] effusion and drainage and critical care management. /[id number] MD NIXON Gandhi/AQ / MWRima / MODL /[id number] documented in this encounter Plan of Treatment Not on file documented as of this encounter Visit Diagnoses Not on filedocumented in this encounter
--- OUTSIDE RECORDS SUMMARY | 2025-01-16 12:46 | XMS_ITS | Encounter Summary ---
Author Organization [facility] Address [address] [place] [address] Care Team Providers Care Address Change Clerk Name Role Phone Unavailable Primary Care Provider Unavailabl e Encounter Details Date Type Department Care Team (Late st Contact Info) Description 11/15/2019 Transcribed Document [facility] [place] Family Medicine [address] [place] [address] ProviderMacrina MD [address] [place] [address] Social History Tobacco Use Types [...] Cordova MD - 11/15/2019 1:54 PM CDT [facility] Dr. Alarcon CLAUDIA [address] [address]SE [...] visit. Please call Marissa Mckay to arrange [phone]. Where: [address] [facility] [address] [place] [id number] [employer] (1) Medications What How Much When Instructions [...] and water are not available, use hand auto transmission mechanic. ? Change your dressing as told by [...] contrast dye from your body. ??? Take zwnj-ewf-qephjif and prescription medicines only as told by [...] 01/29/2006 Document Revised: 06/17/2017 Document Reviewed: 06/17/2017 [employer] Patient Education ?? 2019 [employer]. Valvuloplasty, Care After This sheet gives you [...] and water are not available, use hand auto transmission mechanic. ? Change your dressing as told by [...] health care provider. General instructions ??? Take veri-wgx-zwaklqu and prescription medicines only as told by your health care provider. ??? Do not take baths, swim, or use a hot tub until your health care provider approves. ??? To prevent or treat constipation while you are taking prescription pain medicine, your health care provider may recommend that you: ? Drink enough fluid to keep your urine clear or pale yellow. ? Take raik-fir-wcnjipa or prescription medicines. ? Eat foods that [...] 11/27/2015 Document Revised: 06/09/2017 Document Reviewed: 06/09/2017 [employer] Patient Education ?? 2019 [employer] Moderate Conscious Sedation, Adult, Care After [...] you are awake and alert. ??? Take gbbl-iqi-trafabu and prescription medicines only as told by [...] 05/03/2014 Document Revised: 12/15/2016 Document Reviewed: 11/01/2016 [employer] Patient Education ?? 2019 [employer] Groin Site Care Refer to this [...] Document Reviewed: 08/15/2011 ExitCare?? Patient Information ??2014 [employer]. Emergency Awareness and Preventative Care STROKE is [...] Assistance with quitting is available by contacting 5-144-OFNWNOW. This is a free resource providing counseling, support, and referral. Or you may contact your personal physician. [employer] Suicide Prevention Lifeline: The National Suicide Prevention [...] was given the opportunity to ask questions. Patient/Home Health Outreach Coordinator Name: Patient/Home Health Outreach Coordinator Signature: Relationship to Patient: Clinician/Hospital Home Health Outreach Coordinator Signature: Date: Electronically signed by Elmer, [facility] Conversion Blue Leather Sorter Guanaco at 11/10/2022 9:20 AM CDT documented in this encounter Plan of Treatment Not on file documented as of this encounter Visit Diagnoses Not on filedocumented in this encounter
--- OUTSIDE RECORDS SUMMARY | 2025-01-16 12:46 | XMS_ITS | Encounter Summary ---
Author Organization [employer] In iatives Address [address] [place] [address] Care Team Providers Care Sand Car Worker Name Role Phone Unavailable Primary Care Provider Unavailabl e Encounter Details Date Type Department Care Team (Late st Contact Info) Description 12/03/2020 Transcribed Document [facility] [place] Family Medicine [address] [place] [address] ProviderMacrina MD [address] [place] [address] Social History Tobacco Use Types [...] Source : Stated Height Entry Format : [place] Height, Feet : 5 ft(Converted to: 152 cm, 60 Inch) Height, Inches : 8 Inch(Converted to: 0 ft 8 Inch, 20.32 cm) Clinical Height : 172.72 cm Weight Source : Standing scale Weight Entry Format : [place] Clinical Dosing Weight : 66.36 kg Weight, Pounds : 146 lb Body Surface Area (BSA) : 1.79 m2 Body Mass Index : 22.2 kg/m2 [place] Body Weight : 67 kg CINDY HAGAN [...] - Support Person/Pt Rep Contact Information : [phone] Want Family/Rep/Phys Notified of Admit : No Emergency Contact #1 : Evelia Charu Adorno Emergency Contact #1 Emergency Contact #1 Relationship : Primary Language : Serbian Communication Barrier : None CINDY HAGAN RN [...]
--- OUTSIDE RECORDS SUMMARY | 2025-01-16 12:46 | XMS_ITS | Encounter Summary ---
Author Organization [employer] In iatives Address [address] [place] [address] Care Team Providers Care Consulting Nurse Name Role Phone Unavailable Primary Care Provider Unavailabl e Encounter Details Date Type Department Care Team (Late st Contact Info) Description 01/18/2021 Transcribed Document [facility] [place] Family Medicine [address] [place] [address] ProviderMacrina MD [address] [place], [place] [id number] Social History Tobacco Use Types Packs/Day Years Used Date Smoking Tobacco: Never Assessed Sex and Gender Information Value Date Recorded Sex Assigned at Not on file Legal Sex Male 1:13 PM CDT Gender Identity Not on file Sexual Orientation Not on file documented as of this encounter Miscellaneous Notes * Cerner Conversion Note - Macrina ProviderMD - 01/18/2021 12:15 PM CDT Discharge Summary, BUREAU CHIEF Entered On: 01/18/2021 10:17 EDT Performed On: 01/18/2021 12:15 EDT by JUAN MANUEL BRUMFIELD BUREAU CHIEF Discharge Notation. BUREAU CHIEF Dysphagia Treatment After Discharge : Yes Discharge [...] Treatment Indicated : Yes Discharge Summary Comment, BUREAU CHIEF : PEG successfully placed yesterday. Pt is being d/c to [facility] today. He will need continued ST services to target dysphagia, dysarthria, and cognitive-linguistic deficits. He will need repeat instrumental prior to initiating PO diet. JUAN MANUEL BRUMFIELD SLP - 01/18/2021 10:15 EDT LTG Lang/Comm/Cog LTG BUREAU CHIEF Steward/Stewardess Lounge Goal 1 Intermediate Goal 2 Goals : Improved memory in order to complete functional task(s) upon discharge Improved problem solving in order to complete functional task(s) upon discharge Status : Not met Not met JUAN MANUEL BRUMFIELD SLP - 01/18/2021 10:15 EDT JUAN MANUEL BRUMFIELD, BENJY - 01/18/2021 10:15 EDT STG Lang_Comm_Cog BUREAU CHIEF Education STG Grid Goal #1 Activity : [...] - 01/18/2021 10:15 EDT JUAN MANUEL BRUMFIELD, BUREAU CHIEF - 01/18/2021 10:15 EDT JUAN MANUEL BRUMFIELD BUREAU CHIEF - 01/18/2021 10:15 EDT Swallow Plan/Goals Swallow LTG Grid [facility] Intermediate Goal #1 BUREAU CHIEF Steward/Stewardess Lounge Goal #2 Swallow LTG : Establish safe oral diet without aspiration Improve swallowing function for oral intake Status : Not met Not met JUAN MANUEL BRUMFIELD SLP - 01/18/2021 10:15 EDT JUAN MANUEL BRUMFIELD, BUREAU CHIEF - 01/18/2021 10:15 EDT Swallow Goals Grid [...] 01/10/2021 EDT 01/10/2021 EDT JUAN MANUEL BRUMFIELD, BUREAU CHIEF - 01/18/2021 10:15 EDT JUAN MANUEL BRUMFIELD, BUREAU CHIEF - 01/18/2021 10:15 EDT JUAN MANUEL BRUMFIELD, [facility] - 01/18/2021 10:15 EDT JUAN MANUEL BRUMFIELD, [facility] - 01/18/2021 10:15 EDT Goal #5 Goal [...] - 01/18/2021 10:15 EDT JUAN MANUEL BRUMFIELD, BUREAU CHIEF - 01/18/2021 10:15 EDT JUAN MANUEL BRUMFIELD, BUREAU CHIEF - 01/18/2021 10:15 EDT JUAN MANUEL BRUMFIELD, BUREAU CHIEF - 01/18/2021 10:15 EDT Goal #9 Swallow [...]
--- OUTSIDE RECORDS SUMMARY | 2025-01-16 12:46 | XMS_ITS | Encounter Summary ---
Author Organization [facility] Address [address] [place] [address] Care Team Providers Care Leveler Name Role Phone Unavailable Primary Care Provider Unavailabl e Encounter Details Date Type Department Care Team (Late st Contact Info) Description 12/27/2020 Transcribed Document [facility] [place] Family Medicine [address] [place] [address] ProviderMacrina MD [address] [place] [address] Social History Tobacco Use Types Packs/Day Years [...]
--- OUTSIDE RECORDS SUMMARY | 2025-01-16 12:46 | XMS_ITS | Encounter Summary ---
Author Organization [employer] [facility] Address [address] [place] [address] Care Team Providers Care Rug Cleaning Supervisor Name Role Phone Unavailable Primary Care Provider Unavailabl e Encounter Details Date Type Department Care Team (Late st Contact Info) Description 12/30/2020 Transcribed Document [facility] [place] [address] [place] [address] ProviderMacrina MD [address] [place] [address] Social History Tobacco Use [...] Source : Measured Height Entry Format : [place] Height, Feet : 0 ft Height, Inches : 67.75 Inch Clinical Height : 172.09 cm Body Surface Area (BSA), Routine : 1.92 m2 Body Mass Index (BMI), Routine : 26.54 kg/m2 RON URENA RN - 12/30/2020 6:56 EDT Electronically signed by Olinda Payne Conversion Compensation And Benefits Administrator Cerner at 11/10/2022 9:13 AM CDT documented in this encounter Plan of Treatment Not on file documented as of this encounter Visit Diagnoses Not on filedocumented in this encounter
--- OUTSIDE RECORDS SUMMARY | 2025-01-16 12:46 | XMS_ITS | Encounter Summary ---
Author Organization [facility] Address [address] [place] [address] Care Team Providers Care All Round Butcher Name Role Phone Unavailable Primary Care Provider Unavailabl e Encounter Details Date Type Department Care Team (Late st Contact Info) Description 12/30/2020 Transcribed Document [facility] [place] Family Medicine [address] [place] [address] ProviderMacrina MD [address] [place], [place] [address]51 Social History Tobacco Use Types Packs/Day Years [...]
--- OUTSIDE RECORDS SUMMARY | 2025-01-16 12:46 | XMS_ITS | Encounter Summary ---
Author Organization [employer] [facility] Address [address] [place] [address] Care Team Providers Care Program Analyst Name Role Phone Unavailable Primary Care Provider Unavailabl e Encounter Details Date Type Department Care Team (Late st Contact Info) Description 12/27/2020 Transcribed Document [facility] [place] [address] [place] [address] ProviderMacrina MD [address] [place], [place] 2740[address] Social History Tobacco Use Types Packs/Day Years [...] Initial Visit : No Referred by : Enterprise Project Manager follow-up Ministry Provided to : Patient, Family/Significant [...] follow up visit as recommended by previous coin counter and wrapper. Supportive presence and conversation provided for patient's [...]
--- OUTSIDE RECORDS SUMMARY | 2025-01-16 12:46 | XMS_ITS | Encounter Summary ---
Author Organization [facility] Address [address] [place] [address] Care Team Providers Care Full Stack Software Engineer Name Role Phone Unavailable Primary Care Provider Unavailabl e Encounter Details Date Type Department Care Team (Late st Contact Info) Description 01/14/2021 Transcribed Document [facility] [place] [address] [place] [address] ProviderMacrina MD [address] [place], [place] [address] Social History Tobacco Use Types Packs/Day Years [...] On: 01/14/2021 17:33 EDT by [facility] Coord Phone Call for Consults Consult Phone Call/Page Attempt : First call Consult Reason : PEG placement Physician Requesting Consult : EMEKA MADERA MD-CAT Physician Requested for Consult : PEYTON BEATTY MD Provider Service Notified Name : Other: general surgery Date and Time Call Returned : 01/15/2021 10:27 EDT [facility] - 01/15/2021 10:26 EDT Electronically signed by Elmer [facility] Conversion Religious Education Director Cerner at 11/10/2022 9:08 AM CDT documented in this encounter Plan of Treatment Not on file documented as of this encounter Visit Diagnoses Not on filedocumented in this encounter
--- OUTSIDE RECORDS SUMMARY | 2025-01-16 12:46 | XMS_ITS | Encounter Summary ---
Author Organization [facility] Address [address] [place] [address] Care Team Providers Care Construction Equipment Overhauler Name Role Phone Unavailable Primary Care Provider Unavailabl e Encounter Details Date Type Department Care Team (Late st Contact Info) Description 01/18/2021 Transcribed Document [facility] [place] [address] [place] [address] ProviderMacrina MD [address] [place], [place] 24[address] Social History Tobacco Use Types Packs/Day Years [...]
--- OUTSIDE RECORDS SUMMARY | 2025-01-16 12:46 | XMS_ITS | Encounter Summary ---
Author Organization [facility] [employer] [facility] Address [address] [place] [address] Care Team Providers Care Knowledge Management Advisor Name Role Phone Unavailable Primary Care Provider Unavailabl e Encounter Details Date Type Department Care Team (Late st Contact Info) Description 01/08/2021 Transcribed Document [facility] [place] Family Medicine [address] [place] [address] ProviderMacrina MD [address] [place] [address] Social History Tobacco Use Types [...] On: 01/08/2021 14:55 EDT by SOPHY RM Rn-Technical Specialist CytogeneticsJig Operator Progress Note Discharge Arrangements : Patient [...] Meeting Medical Necessity : Yes SOPHY RM Rn-Technical Specialist Cytogenetics - 01/08/2021 14:55 EDT Narrative Progress Note Narrative Progress Note : HD#12; ELOS 3; LRR; BOOST 6; POD #12 - Electiv TAVR/LVentTear/Cardiac Tamponade/Embolic Strokes w/ R side weakness; RA; IS/FVD encouraged; report pt with delerium/lethargy overnight - pulled out IV; PICC ordered today; R arm weakness; Corpak/TF - failed ST evaluation - improving; DCP Rehab; continue to follow SOPHY RM Rn-Technical Specialist Cytogenetics - 01/08/2021 14:56 EDT Historical Progress Note : HD#11; ELOS 3; MRR; BOOST 6; POD#11 - Elective TAVR/LVentTear/Cardiac Tamponade; 02=2L; Maxipime/Ancef; IV Bumex; working w/therapy and stood at side of bed; SOPHY RM Rn-Technical Specialist Cytogenetics - 01/07/21 14:34:53 HD#11; ELOS 3; MRR; BOOST 6; POD#11 - Elective TAVR/LVentTear/Cardiac Tamponade; 02=2L; Maxipime/Ancef; IV Bumex; working w/therapy and stood at side of bed; ST - ongoing rec for NPO r/t dysphagia - tx; instrumental 3-4 days; Corpak/TF; DCP anticipate rehab; [facility] and list w/post acute star ratings provided to pt for choicing. SOPHY RM Rn-Technical Specialist Cytogenetics - 01/07/21 14:36:37 HD#8; ELOS 3; LRR; BOOST 6; POD#8 - Elec TAVR/LVentTear/Cardiac Tamponade - intubated fi02 100; awake/calm/following commands; bronchoscopy scheduled today; SBT; T=101.2; MRI - diffuse scattered bilateral infarcts; Dr. Navarro states during MDR that if pt is unable to successfully wean over weekend will need trach/peg consult on Thursday; continue to follow; will need therapy evaluations when extubated. SOPHY RM Rn-Technical Specialist Cytogenetics - 01/04/21 15:16:12 HD#7; ELOS 3; LRR; BOOST 6; POD#7 - Elective TAVR/LVentTear/CardiacTamponade/Arrest - intubated fi02 40/peep 8; SBT x 2 hr; Fent/Precedex gtt; Corpak/TF; Humza CT in place; Neurology following - MRI diffuse scattered bilateral infarcts; pt w/improvement in movement of R side; PT/OT evaluations when extubated; DCP TBD - likely rehab. SOPHY RM Rn-Technical Specialist Cytogenetics - 01/03/21 15:03:09 HD#6; ELOS 3; LRR; BOOST 6; POD #6 - Electiv TAVR/L Vent Tear/Cardiac Tamponode/Arrest - reintubated 01/01; fi02 40; Levo/Fent/Precedex gtt; wean sedation - on SBT 2hr TID; T=99.9; Dr. Navarro states during MDR that pt's spouse aware may need trach/peg; DCP TBD pending progress. SOPHY RM Rn-Technical Specialist Cytogenetics - 01/02/21 14:55:12 HD#5; ELOS 3; LRR; BOOST 6; POD #5 - Elective TAVR/L Ventrial Tear/Cardiac Tamponode; extubated on 12/31 required reintubation today fi02 60/peep 8; Precedex/Fent gtt; Corpak/TF; IV Zosyn; CT draining; T=100; DCP TBD pending progress; will need therapy evals when appropriate. SOPHY RM Rn-Technical Specialist Cytogenetics - 01/01/21 14:47:57 HD#4; ELOS 3; LRR; POD#4 - Electiv TAVR; L Ventrical Tear; intubated fi02 50; Cardene gtt; Corpak to be placed and TF initiated; SBT today; following commands; Head MRI ordered; possible extubation post MRI; no movement noted on R side; will need PT/OT evaluations when extubated; DCP pending progress - likely rehab. SOPHY RM Rn-Technical Specialist Cytogenetics - 12/31/20 14:58:43 DCP TBD - pending progress; OP Cardiac Rehab referral placed thru [facility]. SOPHY RM Rn-Technical Specialist Cytogenetics - 12/28/20 12:42:03 SOPHY RM Rn-Technical Specialist Cytogenetics - 01/08/2021 14:55 EDT Electronically signed by Olinda Payne Conversion Propulsion Motor And Generator Repairer Guanaco at 11/10/2022 9:16 AM CDT documented in this encounter Plan of Treatment Not on file documented as of this encounter Visit Diagnoses Not on filedocumented in this encounter
--- OUTSIDE RECORDS SUMMARY | 2025-01-16 12:46 | XMS_ITS | Encounter Summary ---
Author Organization [employer] [facility] Address [address] [place] [address] Care Team Providers Care Survey Instrument Operator Name Role Phone Unavailable Primary Care Provider Unavailabl e Encounter Details Date Type Department Care Team (Late st Contact Info) Description 12/03/2020 Transcribed Document [facility] [place] [address] [place] [address] ProviderMacrina MD [address] [place] [address] Social History Tobacco Use Types [...] None. SOCIAL HISTORY: The patient lives in [place]. 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 He [...] review Mr. Adorno and determine further recommendation. /[id number] DICTATED BY: LUCÍA Phelps for Cuauhtemoc Gresham MD MD SOHAM Carrington/STACIE / SOHAM / SOHAIL /[id number] Patient was seen and examined by me [...]
--- OUTSIDE RECORDS SUMMARY | 2025-01-16 12:46 | XMS_ITS | Clinical Summary ---
Author Organization [facility] Address [address] [place] [address] Care Team Providers Care Stock Trader Name Role Phone Robert Batista MD Primary Care Provider [phone] Allergies No known active allergies Medications amLODIPine [...] Office Visit [facility] [address] [place] [address] Darell Turcios MD Soft tissue sarcoma (CMS/HCC) (Primary Dx) 11/07/2024 9:10 AM EDT - 11/07/2024 11:59 PM EDT Hospital Encounter [facility] [address] [place] [address] Soft tissue sarcoma (CMS/HCC) Discharge Disposition: Home [...] any time in the past 12 m [facility], were you homeless or living in a fdc (including now)? No 08/19/2024 CAGE ASSESSMENT Answer [...] drink first t ember in the morning (EYE-PLASTICS FABRICATOR) to steady your nerves or to get rid of a hangover? 0 08/14/2023 CAGE Questionnaire Score 0 024 Utilities Answer Date Recorded In the past 12 months has th e [employer], gas, oil, or water [employer] threatened to shut off services in your [...] 9:25 AM EDT Appointment [facility] [address] [place] [address] 02/06/2025 10:45 AM EDT Office Visit [facility] [address] [place] [address] Darell Turcios MD [address] [facility] [address] [place] [address] 02/13/2025 12:50 PM EDT Consult [facility] [address] [place] [address] Tari Christie PA [address] [place] [address] Health Maintenance Due Date Last Done Comments [facility]-Bone Density Scan 1940 [facility]-Medicare Annual Wellness (AWV) 1940 [facility]-/Child/Adol SDOH Screenings 1940 [facility]-Hepatitis A Vaccines (1 of 2 - Risk 2-dose series) 1959 [facility]-Pneumococcal Vaccine: 50+ Years (1 of 2 - PCV) 1959 [facility]-Zoster Vaccines (1 of 2) 1959 [facility]-RSV Vaccine: 60+ Years or (1 - 1-dose 75+ series) 2014 [id number]-[id number] Vaccine ( season) 2024 05/14/2022, 04/17/2021, 09/22/2020, [...] on 11/07/2024 11:29 AM Leandra L Profitt BOBBIN LOOSE END FINDER IMG XR PROCEDURES Final Res ult from Last 3 Months Insurance CLAUDIA CLARK [id number] [facility] MEDICARE Advance Directives * Full Code (Latest [...] Patient has decision-making capacity? Yes Care Teams Stock Trader Relationship Specialty Start Date End Date Robert Batista MD [address] [place] [address] #1 #1 CLAUDIA Lemus [phone] PCP - General 12/07/20
--- OUTSIDE RECORDS SUMMARY | 2025-01-16 12:46 | XMS_ITS | Encounter Summary ---
Author Organization [employer] [facility] Address [address] [place] [address] Care Team Providers Care Radiological Engineer Name Role Phone Unavailable Primary Care Provider Unavailabl e Encounter Details Date Type Department Care Team (Late st Contact Info) Description 01/18/2021 Transcribed Document [facility] [place] Family Medicine [address] [place] [address] ProviderMacrina MD [address] [place] [address] Social History Tobacco Use Types [...] including vitamins, herbs, eye drops, creams, and awmd-cqg-urfitqj medicines. ??? Any problems you or family [...] 12/18/2016 Document Reviewed: 07/17/2015 ? 2017 Elsevier Electronically signed by Olinda Payne Conversion Senior Tableau Developer Viridiananer at 11/10/2022 9:06 AM CDT documented in this encounter Plan of Treatment Not on file documented as of this encounter Visit Diagnoses Not on filedocumented in this encounter
--- OUTSIDE RECORDS SUMMARY | 2025-01-16 12:46 | XMS_ITS | Encounter Summary ---
Author Organization [facility] Address [address] [place] [address] Care Team Providers Care Burner Shaft Name Role Phone Unavailable Primary Care Provider Unavailshelly e Encounter Details Date Type Department Care Team (Late st Contact Info) Description 02/05/2021 Transcribed Document [facility] [place] [facility] [place] [address] ProviderMacrina MD [address] [place], [place] [address] Social History Tobacco Use Types Packs/Day Years [...] On: 02/05/2021 16:02 EDT by Kathy Medrano storage battery inspector Follow Up Phone Call Third Call Date/Time [...] 6 weeks EMEKA TOVARCORNELIUS - 10:15 AM [facility] Cardiac Rehabilitation - Within 6 weeks DANYELLE WALTERS - 11:00 AM PERICO AWAN MD - Within 5 to 7 days Follow Up Scheduled With PCP? : Yes Patient Has PCP Contact Info? : Yes Follow Up Scheduled with Specialist? : Yes Patient Has Specialist Contact Info? : Yes Patient Experienced Pain During Visit : No Previously Documented Custodial Patient Stated Goal : No Patient Stated Goal Kathy Medrano RN - 02/05/2021 16:02 EDT Post Visit Comments : 14 day stroke follow up: 02/05 @ 1603: spoke to patients , states the patient is still at [facility]. Pt is doing well and is improving every day. He is going to be discharged from [facility] on thursday. He has follow ups [...] 03/25/2021 15:58 EDT Electronically signed by [facility] Conversion Cashier Ticket Selling Cerner at 11/10/2022 9:15 AM CDT documented in this encounter Plan of Treatment Not on file documented as of this encounter Visit Diagnoses Not on filedocumented in this encounter
--- OUTSIDE RECORDS SUMMARY | 2025-01-16 12:46 | XMS_ITS | Encounter Summary ---
Author Organization [facility] [facility] Address [address] [place] [address] Care Team Providers Care Railcar Carpenter Name Role Phone Unavailable Primary Care Provider Unavailabl e Encounter Details Date Type Department Care Team (Late st Contact Info) Description 01/18/2021 Transcribed Document [facility] [place] Family Medicine [address] [place] [address] ProviderMacrina MD [address] [place] [address] Social History Tobacco Use Types [...] NEDA DAVIS PTA - 01/18/2021 15:50 EDT Shelter Goals Mobility/Bed Mobility LTG PT Grid Goal [...]
--- OUTSIDE RECORDS SUMMARY | 2025-01-16 12:46 | XMS_ITS | Encounter Summary ---
Author Organization [facility] Address [address] [place] [address] Care Team Providers Care Truck Headlight Assembler Name Role Phone Unavailable Primary Care Provider Unavailabl e Encounter Details Date Type Department Care Team (Late st Contact Info) Description 12/30/2020 Transcribed Document [facility] Pulm & Critical Care Medicine [address] [place] [address] [address] [place] [address] Kapil River MD [address] [facility] [address] [place] [address] Social History Tobacco Use Types [...] - 12/30/2020 6:51 PM EDT Patient: JOSE DAORNO Age: 80 years Sex: Male : 1940 [...] (DEC 30) H 10.8 (CESAR 05) 7.4 (CESRA 04) HB L 8.6 (CESAR 06) L [...] 3.1 (CESAR 06) 3.8 (CESAR 05) 3.9 (CSEAR 04) Cl 110 (CESAR 06) 109 (CESAR 06) H 114 (CESAR 05) H 117 (CESAR 04) CO2 27 (CESAR 06) 30 (CESAR 06) 29 (CESAR 05) 30 (CESAR 04) BUN H 25 (CESAR 06) H 24 (CESAR 06) 17 (CESAR 05) 17 (CESAR 04) Cr 0.70 (CESAR 06) 0.80 (CESAR 06) 1.00 (CESAR 05) 0.90 (CESAR 04) Glu R H 160 (CESRA 06) H 175 (CESAR 06) H 114 [...] (Current Encounter/Past 24 Hours) pH Art 7.52 SC 12/30/2020 08:28 pCO2 Art 33.0 LOW 12/30/2020 08:28 pO2 Art 57.7 LOW 12/30/2020 08:28 HCO3 Art 26.7 HI 12/30/2020 08:28 BE Art 3.8 SC 12/30/2020 08:28 sO2 Art 92.4 LOW 12/30/2020 [...] 12/30/2020 04:00 Radiology Results (Last 48 hours) [id number] -- 12/27/2020 06:39 CR Chest 1 Vw [...] critical care time excluding procedures. Discussed with SOCIAL MEDIA PROJECT MANAGER: RN and patient's at bedside. documented in this encounter Plan of Treatment Not on file documented as of this encounter Visit Diagnoses Not on filedocumented in this encounter
--- OUTSIDE RECORDS SUMMARY | 2025-01-16 12:46 | XMS_ITS | Encounter Summary ---
Author Organization [facility] [employer] [facility] Address [address] [place] [address] Care Team Providers Care Machine Maintenance Mechanic Name Role Phone Unavailable Primary Care Provider Unavailabl e Encounter Details Date Type Department Care Team (Late st Contact Info) Description 11/15/2019 Transcribed Document [facility] [place] [address] [place] [address] ProviderMacrina MD [address] [place] [address] Social History Tobacco Use Types [...] Source : Stated Height Entry Format : [place] Height, Feet : 5 ft(Converted to: 152 cm, 60 Inch) Height, Inches : 8 Inch(Converted to: 0 ft 8 Inch, 20.32 cm) Clinical Height : 172.72 cm Weight Source : Standing scale Weight Entry Format : [place] Clinical Dosing Weight : 64.09 kg Weight, Pounds : 141 lb Body Surface Area (BSA) : 1.76 m2 Body Mass Index : 21.5 kg/m2 [place] Body Weight : 67 kg ASHLEY STAFFORD [...] ASHLEY STAFFORD RN - 11/15/2019 7:25 EDT [place] Suicide Severity Rating Scale (C-SSRS) CSSRS Past [...] Box Emergency Contact #1 Phone Number : [phone] Emergency Contact #1 Relationship : Emergency Contact #2 : na Emergency Contact #2 Phone Number : na Emergency Contact #2 Relationship : na Chief Complaint : heart cath/BAV Information Obtained From : Patient Primary Language : Swedish Communication Barrier : None ASHLEY STAFFORD RN [...] : No limitation Jeferson Nutrition : Adequate Jefreson Friction and Shear : No apparent problem [...] Scale Risk Level : 0-24 Low Risk [place] Fall Interventions : Adequate lighting, Assistive devices [...]
--- OUTSIDE RECORDS SUMMARY | 2025-01-16 12:46 | XMS_ITS | Encounter Summary ---
Author Organization [employer] [facility] Address [address] [place] [address] Care Team Providers Care Gill Box Operator Name Role Phone Unavailable Primary Care Provider Unavailabl e Encounter Details Date Type Department Care Team (Late st Contact Info) Description 12/25/2020 Transcribed Document [facility] [place] [address] [place] [address] ProviderMacrina MD [address] [place] [address] Social History Tobacco Use Types [...] Source : Measured Height Entry Format : [place] Height, Feet : 0 ft(Converted to: 0 cm, 0 Inch) Height, Inches : 67.75 Inch(Converted to: 5 ft 8 Inch, 172.08 cm) Clinical Height : 172.09 cm Weight Source : Standing scale Weight Entry Format : [place] Clinical Dosing Weight : 65.14 kg Weight, Pounds : 143 lb Weight, Ounces : 5 oz Body Surface Area (BSA) : 1.77 m2 Body Mass Index : 22 kg/m2 Barney Body Weight : 67 kg TONY BRIDGES [...] TONY BRIDGES RN - 12/25/2020 10:50 EDT [place] Suicide Severity Rating Scale (C-SSRS) CSSRS Past [...] - Support Person/Pt Rep Contact Information : [phone] Want Family/Rep/Phys Notified of Admit : No Emergency Contact #1 : michaela Adorno Emergency Contact #1 Emergency Contact #1 Relationship : Emergency Contact #2 : n Emergency Contact #2 Phone Number : n Emergency Contact #2 Relationship : n Information Obtained From : Patient Primary Language : Turkish Communication Barrier : None Team Manager Needed : No TONY BRIDGES RN - [...]
--- OUTSIDE RECORDS SUMMARY | 2025-01-16 12:46 | XMS_ITS | Encounter Summary ---
Author Organization [facility] Address [address] [place] [address] Care Team Providers Care Tibco Developer Name Role Phone Unavailable Primary Care Provider Unavailabl e Encounter Details Date Type Department Care Team (Late st Contact Info) Description 01/08/2021 Transcribed Document [facility] [place] [address] [place] [address] ProviderMacrina MD [address] [place], [place] [address] Social History Tobacco Use Types Packs/Day Years [...]
--- OUTSIDE RECORDS SUMMARY | 2025-01-16 12:46 | XMS_ITS | Encounter Summary ---
Author Organization [facility] Address [address] [place] [address] Care Team Providers Care Header Operator Name Role Phone Unavailable Primary Care Provider Unavailabl e Encounter Details Date Type Department Care Team (Late st Contact Info) Description 12/27/2020 Transcribed Document [facility] [place] [address] [place] [address] ProviderMacrina MD [address] [place] [address] Social History Tobacco Use Types [...]
--- OUTSIDE RECORDS SUMMARY | 2025-01-16 12:46 | XMS_ITS | Clinical Summary ---
Author Organization [facility] In [facility] Address [address] [place] [address] Care Team Providers Care Landscape Specialist Name Role Phone Unavailable Primary Care [...] Date Derek rded Speak language other than Amharic at home Not on file 02/17/2024 Want [...] or Tdap) 08/13/2033 08/13/2023, 07/27/[address] [place] [phone] [facility] MEDICARE ADVANTAGE
--- OUTSIDE RECORDS SUMMARY | 2025-01-16 12:46 | XMS_ITS | Encounter Summary ---
Author Organization [facility] Address [address] [place] [address] Care Team Providers Care Supplier Quality Manager Name Role Phone Unavailable Primary Care Provider Unavailabl e Encounter Details Date Type Department Care Team (Late st Contact Info) Description 01/14/2021 Transcribed Document [facility] [place] [address] [place] [address] ProviderMacrina MD [address] [place] [address] Social History Tobacco Use Types [...] will be a very good candidate for [facility] when ready for discharge; mood is better [...]
--- OUTSIDE RECORDS SUMMARY | 2025-01-16 12:46 | XMS_ITS | Encounter Summary ---
Author Organization [facility] Address [address] [place] [address] Care Team Providers Care Life Science Taxonomist Name Role Phone Unavailable Primary Care Provider Unavailabl e Encounter Details Date Type Department Care Team (Late st Contact Info) Description 12/30/2020 Transcribed Document [facility] [place] [address] [place] [address] ProviderMacrina MD [address] [place] [address] Social History Tobacco Use [...]
--- OUTSIDE RECORDS SUMMARY | 2025-01-16 12:46 | XMS_ITS | Encounter Summary ---
Author Organization [employer] [facility] Address [address] [place] [address] Care Team Providers Care Associate Chief Nurse Name Role Phone Unavailable Primary Care Provider Unavailabl e Encounter Details Date Type Department Care Team (Late st Contact Info) Description 01/18/2021 Transcribed Document [facility] [place] [facility] [place] [address] ProviderMacrina MD [address] [place] [address] Social History Tobacco Use Types [...] Rehabilitation unit/facility Name of Receiving Facility/Provider : [facility] Mode Of Departure, General Discharge : [...]
--- OUTSIDE RECORDS SUMMARY | 2025-01-16 12:46 | XMS_ITS | Encounter Summary ---
Author Organization [facility] Address [address] [place] [address] Care Team Providers Care Ceramics Artist Name Role Phone Unavailable Primary Care Provider Unavailabl e Encounter Details Date Type Department Care Team (Late st Contact Info) Description 01/08/2021 Transcribed Document [facility] [place] [facility] [place] [address] ProviderMacrina MD [address] [place] [address] Social History Tobacco Use Types [...] 0.5 MCG/KG/. 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 MRI brain yesterday revealed [...] 180s. 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 but weaker on [...] At risk for sleep apnea / IMO [id number] / Confirmed Colorectal surgery / SNOMED CT 9629331596 / Confirmed Aortic valve stenosis / SNOMED CT 067754390 / Confirmed HTN - Hypertension / SNOMED CT 7601238393 / Confirmed At risk for violence / IMO 25893613 / Confirmed Hypertension / SNOMED CT 83372773 / Confirmed Hyperlipidemia / SNOMED CT 58176766 / Confirmed Chronic anxiety / SNOMED CT 554145838 / Confirmed GERD - Gastro-esophageal reflux disease / SNOMED CT 8369702976 / Confirmed Disorder of prostate / SNOMED CT 02394052 / Confirmed Back pain, chronic / SNOMED CT 998480055 / Confirmed Aortic stenosis, severe / SNOMED CT 1410187974 / Confirmed Arthritis of right knee / SNOMED CT 7797730174 / Confirmed H/O peripheral neuropathy / SNOMED CT 867557634 / Confirmed feet tingle all the time Resolved: Cancer of colon / SNOMED 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
--- OUTSIDE RECORDS SUMMARY | 2025-01-16 12:46 | XMS_ITS | Encounter Summary ---
Author Organization [facility] Address [address] [place] [address] Care Team Providers Care Pulmonary Function Technician Name Role Phone Unavailable Primary Care Provider Unavailabl e Encounter Details Date Type Department Care Team (Late st Contact Info) Description 12/03/2020 Transcribed Document [facility] [place] [address] [place] [address] ProviderMacrina MD [address] [place] [address] Social History Tobacco Use Types [...]
--- OUTSIDE RECORDS SUMMARY | 2025-01-16 12:46 | XMS_ITS | Encounter Summary ---
Author Organization [facility] Outline [facility] Address [address] [place] [address] Care Team Providers Care Contract Serviceman Name Role Phone Unavailable Primary Care Provider Unavailabl e Encounter Details Date Type Department Care Team (Late st Contact Info) Description 11/15/2019 Transcribed Document [facility] Family Medicine [address] [place] [address] ProviderMacrina MD [address] [place] [address] Social History Tobacco Use Types [...] and water are not available, use hand contractor broomcorn threshing. ? Change your dressing as told by [...] contrast dye from your body. ??? Take scvn-dgt-ndjlpeb and prescription medicines only as told by [...] 01/29/2006 Document Revised: 06/17/2017 Document Reviewed: 06/17/2017 [employer] Interactive Patient Education ? 2019 [employer] Valvuloplasty, Care After This sheet gives [...] and water are not available, use hand contractor broomcorn threshing. ? Change your dressing as told by [...] health care provider. General instructions ??? Take phmn-mrm-ahjtcyl and prescription medicines only as told by your health care provider. ??? Do not take baths, swim, or use a hot tub until your health care provider approves. ??? To prevent or treat constipation while you are taking prescription pain medicine, your health care provider may recommend that you: ? Drink enough fluid to keep your urine clear or pale yellow. ? Take lyfq-dsn-nbkcmjr or prescription medicines. ? Eat foods that [...] 11/27/2015 Document Revised: 06/09/2017 Document Reviewed: 06/09/2017 [employer] Interactive Patient Education ? 2019 [employer]. Moderate Conscious Sedation, Adult, Care After These [...] you are awake and alert. ??? Take fpcs-cvr-xspesmh and prescription medicines only as told by [...] 05/03/2014 Document Revised: 12/15/2016 Document Reviewed: 11/01/2016 [employer] Interactive Patient Education ? 2019 [employer]. Groin Site Care Refer to this sheet [...] Document Reviewed: 08/15/2011 ExitCare? Patient Information ?2013 [employer]. documented in this encounter Plan of Treatment Not on file documented as of this encounter Visit Diagnoses Not on filedocumented in this encounter
--- OUTSIDE RECORDS SUMMARY | 2025-01-16 12:46 | XMS_ITS | Encounter Summary ---
Author Organization [facility] Address [address] [place] [address] Care Team Providers Care Partner Alliance Manager Name Role Phone Unavailable Primary Care Provider Unavailabl e Encounter Details Date Type Department Care Team (Late st Contact Info) Description 01/18/2021 Transcribed Document [facility] [place] [address] [place] [address] ProviderMacrina MD [address] [place] [address] Social History Tobacco Use Types [...] Cordova MD - 01/18/2021 4:09 PM CDT [facility] CLAUDIA Freitas [address] JOSE ADORNO :1940 Visit [...] do next Instructions From Your Care Team [facility] Number for Report: [phone] Fax for Discharge Summary: [phone] Transportation: [facility] Van at 1615 Follow-Up Appointments Follow Up with DANYELLE WALTERS When 02/08/2021 11:00 AM EDT Comments ECHO same day, prior to follow up appointment with Dr. Crawford. Arrive at [facility] at 9am. Where: [address] [place] [address]- Business (1) Follow Up with EMEKA MADERA When 02/05/2021 10:15 AM EDT Comments Appointment has been made Where: [address] [place] [phone]- Business (1) Follow Up with FITO MEDRANO When Within 6 weeks Comments Hospital f/u for stroke; Call for follow up appointment when discharged from Rehab Where: [address] [place] [address]- Business (1) Follow Up with PERICO AWAN MD When Within 5 to 7 days Comments Call for follow up appointment when discharged from Rehab Where: [address] [place] [address]- Follow Up with [facility] Card[facility] When Within 6 weeks Comments [...] including vitamins, herbs, eye drops, creams, and shix-vjo-efgcwgb medicines. ??? Any problems you or family [...] Assistance with quitting is available by contacting 4-998-FOZQNOW. This is a free resource providing counseling, support, and referral. Or you may contact your personal physician. [place] Suicide Prevention Lifeline: The National Suicide Prevention [...] range between ( 0.0 and 7.0 ) Hardeman #: 1.00 K/uL -- Normal range between ( 0.16 and 1.00 ) Eos #: 0.52 x10(3)/uL -- Normal range between ( 0.00 and 0.80 ) Hardeman %: 8.5 % -- Normal range between [...] ) Urine Bilirubin Dipstick: Negative Urine Specific Selma: 1.017 -- Normal range between ( 1.005 [...] was given the opportunity to ask questions. Patient/Hogshead Liner Name: Patient/Hogshead Liner Signature: Relationship to Patient: Clinician/Hospital Hogshead Liner Signature: Date: documented in this encounter Plan of Treatment Not on file documented as of this encounter Visit Diagnoses Not on filedocumented in this encounter
--- OUTSIDE RECORDS SUMMARY | 2025-01-16 12:46 | XMS_ITS | Encounter Summary ---
Author Organization [facility] In [facility] Address [address] [place] [address] Care Team Providers Care Combination Machine Tender Name Role Phone Unavailable Primary Care Provider Unavailabl e Encounter Details Date Type Department Care Team (Late st Contact Info) Description 12/27/2020 Transcribed Document [facility] [place] [address] [place] [address] ProviderMacrina MD [address], [place] [...] Macrina ProviderMD - 12/27/2020 11:37 AM CDT [facility] Main OR IntraOp Summary Primary Physician: EMEKA MADERA MD-CAT Finalized Date/Time: 12/31/20 11:24:25 Pt. Name: JOSE ADORNO Ade /Sex: 1940 Male Med Rec #: [id number] Physician: DANYELLE WALTERS MD-CAR Financial #: [id number] Pt. Type: I Room/Bed: [facility] Admit/Disch: 12/27/20 06:39:00 - Institution: [facility] IntraOp Case Attendance Entry 1 Entry 2 Entry 3 Case Attendee EMEKA MADERA BURBERRY, KEITH, MD-RACHID FAULKNER PA MD-CAT Role Performed Surgeon/Proceduralist, Anesthesiologist Physician assistant front desk manager First Time In 12/27/20 11:19:00 12/27/20 11:19:00 12/27/20 11:19:00 Time Out 12/27/20 12:43:00 12/27/20 12:43:00 12/27/20 12:43:00 Procedure Pericardial Window Pericardial Window Pericardial Window Other Attendee Superficial Wound Closed By: Last Modified By: Leonora Joy RN Proffitt, Debbie, Leonora Davis RN 12/27/20 12:45:31 12/27/20 12:45:31 12/27/20 12:45:31 Entry 4 Entry 5 Entry 6 Case Attendee JESSY GALLO SKIDMORE, ROY Proffitt, Debbie, SHYAM Utilization Review Specialist Role Performed Utilization Review Specialist Scrub, First Diabetes Nurse, First Time In 12/27/20 11:19:00 12/27/20 11:19:00 12/27/20 11:19:00 Time Out 12/27/20 12:43:00 12/27/20 12:43:00 12/27/20 12:43:00 Procedure Pericardial Window Pericardial Window Pericardial Window Other Attendee Superficial Wound Closed By: Last Modified By: Leonora Joy RN Proffitt, Debbie, Leonora Davis RN 12/27/20 12:45:31 12/27/20 12:45:31 12/27/20 12:45:31 Entry 7 Case Attendee SHAYLA COWAN RN Role Performed Diabetes Nurse, Second Time In 12/27/20 11:19:00 Time Out 12/27/20 12:43:00 Procedure Pericardial Window Other Attendee Superficial Wound Closed By: Last Modified By: Leonora Joy RN 12/27/20 12:45:[address] [facility] IntraOp Case Attendance Audit 12/27/20 12:45:31 Telecommunication Tower Technician: BINADE Modifier: PROFITDE 1 <+> Time Out [...] 7 <*> Procedure Pericardial Window 12/27/20 12:18:42 Telecommunication Tower Technician: PROFITDE Modifier: PROFITDE 1 <*> Case Attendee EMEKA MADERA MD-CAT 1 <*> Role Performed Surgeon/Proceduralist, First 1 <*> Time In 12/27/20 11:19:00 1 <*> Procedure Pericardial Window 2 <*> Case Attendee JEISON CRUZ MD-ANS 2 <*> Role Performed Anesthesiologist 2 <*> Time In 12/27/20 11:19:00 2 <*> Procedure Pericardial Window 3 <*> Case Attendee RACHID BRUMFIELD PA 3 <*> Role Performed Physician assistant front desk manager 3 <*> Time In 12/27/20 11:19:00 3 <*> Procedure Pericardial Window 4 <*> Case Attendee JESSY GALLO, Utilization Review Specialist 4 <*> Role Performed Utilization Review Specialist 4 <*> Time In 12/27/20 11:19:00 4 <*> Procedure Pericardial Window 5 <*> Case Attendee TAMEKA REDD 5 <*> Role Performed Scrub, First 5 <*> Time In 12/27/20 11:19:00 5 <*> Procedure Pericardial Window 6 <*> Case Attendee Leonora Joy, RN 6 <*> Role Performed Diabetes Nurse, First 6 <*> Time In 12/27/20 11:19:00 6 <*> Procedure Pericardial Window 7 <*> Case Attendee SHAYLA COWAN, RN 7 <*> Role Performed Diabetes Nurse, Second 7 <*> Time In 12/27/20 11:19:00 7 <*> Procedure Pericardial Window Entry 8 was deleted. Higher numbered entries shifted one position to fill the gap. <-> 8 Case Attendee LUNA YUN, ST <-> 8 Role Performed Scrub, First <-> 8 Time In 12/27/20 12:05:00 <-> 8 Procedure Pericardial Window 12/27/20 12:09:35 Telecommunication Tower Technician: PROFITDE Modifier: PROFITDE <+> 8 Case Attendee <+> 8 Role Performed <+> 8 Time In <+> 8 Procedure 12/27/20 12:08:20 Telecommunication Tower Technician: PROFITDE Modifier: PROFITDE <+> 1 Procedure 2 <*> Procedure Pericardial Window 3 <*> Procedure Pericardial Window 4 <*> Procedure Pericardial Window 5 <*> Procedure Pericardial Window 6 <*> Procedure Pericardial Window 7 <*> Procedure Pericardial Window [facility] IntraOp Case Times Entry 1 Patient In Room Time 12/27/20 11:19:00 Out Room Time 12/27/20 12:43:00 Anesthesia Start Time 12/27/20 11:19:00 Stop Time 12/27/20 12:43:00 Anesthesia Ready 12/27/20 11:19:00 Surgery / Procedure Times Start Time 12/27/20 11:37:00 Stop Time 12/27/20 12:11:00 Last Modified By: Leonora Joy RN 12/27/20 11:45:[address] [facility] IntraOp Case Times Audit 12/27/20 12:45:19 Telecommunication Tower Technician: PROFITDE Modifier: PROFITDE <+> 1 Out Room Time <+> 1 Stop Time 12/27/20 12:14:28 Telecommunication Tower Technician: PROFITDE Modifier: PROFITDE <+> 1 Stop Time [facility] IntraOp Cautery Entry 1 ESU Identification Cautery Type Monopolar ESU ID Number [id number] ID Type Hospital Number Cautery Settings Cut Setting 40 Coag Setting 60 Blend Setting 2 ESU Grounding Pad Ground Pad Type Reusable electrode pad Grounding Pad Site Right Buttock Grounding Pad SHAYLA COWAN RN Applied By Grounding Pad Site Warm, dry and intact Skin Condition Before Cautery Grounding Pad Site Unchanged Skin Condition After Cautery Last Modified By: Leonora Joy RN 12/27/20 11:52:[address] [facility] IntraOp Communication Entry 1 Communication To Other Comment CTVU INFORMED OF START Communication By Leonora Joy RN Date and Time 12/27/20 11:37:00 Last Modified By: Leonora Joy RN 12/27/20 11:53:[address] [facility] IntraOp Counts Verification Entry 1 Procedure Pericardial Window Count Info Count Type Sponge, Sharps, Instrument, Miscellaneous Counts Verification Baseline/pre-procedure Sequence Count Results Not Applicable Counts Performed By Count Performed By TAMEKA REDD (Scrub) Count Performed By Leonora Joy RN (RN) Last Modified By: Leonora Joy RN 12/27/20 11:51:[address] [facility] IntraOp Counts Final Entry 1 Procedure Pericardial Window Final Count Info Count Type Sponge, Sharps, Miscellaneous Counts Verification Skin Closure/end of Sequence procedure Count Results Correct, surgeon notified Counts Performed By Count Performed By TAMEKA REDD (Scrub) Count Performed By Leonora Joy RN (RN) Last Modified By: Leonora Joy RN 12/27/20 12:07:[address] [facility] IntraOp Cultures and Spec Summary Entry 1 Cultrures and Specimens Specimen Ordered: Yes Test(s) Other: Segment text Requested/Final Disposition Last Modified By: Leonora Joy RN 12/27/20 11:53:11 General Comments: COAGS TO LAB [facility] IntraOp Departure from OR Entry 1 Integumentary [...] TO CTVU 16 Comments Last Modified By: Lenoora Joy RN 12/27/20 12:10:[address] [facility] IntraOp Departure from OR Audit 12/27/20 12:48:49 Telecommunication Tower Technician: PROFITDE Modifier: PROFITDE 1 <*> Patient Transport Accompanied by RACHID BRUMFIELD PA 12/27/20 12:43:55 Telecommunication Tower Technician: PROFITDE Modifier: PROFITDE 1 <*> Patient's Normal Integumentary OPSITE AND SURGICAL INTERVENTION SITES Variance(s) 1 <+> Post-op Transport Via [facility] IntraOp Drains and Tubes Entry 1 Device Type Chest Tube Size 36 FR. RIGHT ANGLED Drain/Tube Activity Inserted, Tube secured/stabilized Drain/Tube Suction Continuous low Drain/Tube Drainage Red Device Location STERNUM Method of Drainage Continuous suction Chest Tubes Water-Seal 20 cm suction Connectivity Tube Dressing Dry, Intact Condition Last Modified By: Leonora Joy RN 12/27/20 12:09:[address] [facility] IntraOp Dressing and Packing Entry 1 Type Dressing Location STERNUM Wound Dressing Item Skin Closure Glue Tape Type Paper Applied By RACHID BRUMFIELD PA Other Comments TEGADECLAUDIA, COAVADERM Last Modified By: Leonora Joy RN 12/27/20 12:08:[address] [facility] IntraOp Fire Risk Assessment Entry 1 Fire [...] Modified By: Leonora Joy RN 12/27/20 11:52:[address] [facility] IntraOp General Case Cuff Setter 1 Case Information OR OR [address] [facility] Case Level 1 Room Verified Yes Wound Class I - Clean Specialty Cardio Thoracic Anesthesia Type General ASA Class 4E Diagnosis Preop Diagnosis CARDIAC TAMPONADE Postop Same As Preop Yes Postop Diagnosis CARDIAC TAMPONADE Last Modified By: Leonora Joy RN 12/27/20 12:08:[address] [facility] IntraOp General Case Data Audit 12/27/20 12:08:50 Telecommunication Tower Technician: ELVIRA Modifier: PROFITDE <+> 1 ASA Class <+> 1 Preop Diagnosis <+> 1 Postop Diagnosis 12/27/20 11:54:29 Telecommunication Tower Technician: PROFITDE Modifier: PROFITDE 1 <*> OR Add-On [address] [facility] 1 <+> Anesthesia Type 1 <+> Postop Same As Preop 1 <+> Room Verified [facility] IntraOp Intraoperative Assessment Entry 1 Handoff Method [...] Modified By: Leonora Joy RN 12/27/20 11:57:[address] [facility] IntraOp Intraoperative Assessment Audit 12/27/20 12:21:20 Telecommunication Tower Technician: PROFITDE Modifier: PROFITDE 1 <*> Level of Consciousness (WDL = WDL Alert, Oriented to Person, Place, and Time) 1 <*> Present Upon Arrival to OR IVs [facility] IntraOp Intraoperative Equipment Entry 1 Type Equipment Equipment Intraop Monitoring Electrocardiogram Five lead placement (ECG) Electrode Placement Blood Pressure Non-Invasive BP Device Source Blood Pressure Arterial Location Pulse Oximeter Hand, right Probe Site Antiembolic Devices Scopes Photo/Video Documentation Last Modified By: Leonora Joy RN 12/27/20 11:57:[address] [facility] IntraOp Patient Positioning Entry 1 Procedure Pericardial [...] Modified By: Leonora Joy RN 12/27/20 12:10:[address] [facility] IntraOp Sign In Entry 1 Patient, Site, [...] Modified By: Leonora Joy RN 12/27/20 11:54:[address] [facility] IntraOp Sign Out Entry 1 RN Confirmation [...] Modified By: Leonora Joy RN 12/27/20 12:45:[address] [facility] IntraOp Skin Prep Entry 1 Procedure Pericardial [...] Modified By: Leonora Joy RN 12/27/20 12:22:[address] [facility] IntraOp Skin Prep Audit 12/27/20 12:22:20 Telecommunication Tower Technician: PROFITDE Modifier: PROFITDE 1 <*> Procedure Pericardial Window 1 <*> Integumentary Assessment WDL WDL 1 <+> WDL Patient Exceptions [facility] IntraOp Surgical Procedures Entry 1 Procedure Pericardial Window Additional PERICARDIAL WINDOW Procedure Description Primary Procedure Yes Primary Surgeon EMKEA MADERA MD-CAT Start 12/27/20 11:37:00 Stop 12/27/20 12:11:00 Anesthesia Type General Specialty Cardio Thoracic Wound Class I - Clean Last Modified By: Leonora Joy RN 12/27/20 12:08:[address] [facility] IntraOp Surgical Procedures Audit 12/27/20 12:45:23 Telecommunication Tower Technician: PROFITDE Modifier: PROFITDE <+> 1 Stop 12/27/20 12:10:52 Telecommunication Tower Technician: PROFITDE Modifier: PROFITDE 1 <*> Procedure Pericardial Window 1 <*> Additional Procedure Description (PERICARDIAL WINDOW, POSS STERNOTOMY) [facility] IntraOp Temp Regulation Devices Entry 1 Temp Regulation Temperature Warm blankets, Warm Regulation Device blankets Temperature Full body Regulation Site Temperature Leonora Joy RN Regulation Device Applied by Temperature ON ARRIVAL AND Regulation Comment DEPARTURE FROM THE O.R. Last Modified By: Leonora Joy RN 12/27/20 12:06:[address] [facility] IntraOP Time Out Entry 1 Procedure to [...] Modified By: Leonora Joy RN 12/27/20 12:12:[address] [facility] IntraOP Time Out Audit 12/27/20 12:12:52 Telecommunication Tower Technician: PROFITDE Modifier: PROFITDE 1 <*> Procedure to be Performed Pericardial Window 1 <*> Time Out Comment DR. CRUZ STATED NO NEED FOR ADDITIONAL ANTIBIOTIC, ALREADY RECEIVED THIS MORNING 12/27/20 11:57:30 Telecommunication Tower Technician: PROFITDE Modifier: PROFITDE 1 <*> Beta Shasta Administered Yes 1 <*> Procedure to be Performed Pericardial Window Case Comments <None> Finalized By: TERRIE LOOMIS Document Signatures Signed By: Leonora Joy RN 12/27/20 12:48 TERRIE LOOMIS 12/31/20 11:24 Unfinalized History Date/Time Username Reason for Unfinalizing Freetext Reason for Unfinalizing 12/31/20 11:21 KOMAL Correct Billing Electronically signed by Elmer [facility] Conversion Director Data Architecture Cerner at 11/10/2022 9:23 AM CDT documented in this encounter Plan of Treatment Not on file documented as of this encounter Visit Diagnoses Not on filedocumented in this encounter
--- OUTSIDE RECORDS SUMMARY | 2025-01-16 12:46 | XMS_ITS | Encounter Summary ---
Author Organization [facility] Address [address] [place] [address] Care Team Providers Care Revenue Integrity Analyst Name Role Phone Unavailable Primary Care Provider Unavailabl e Encounter Details Date Type Department Care Team (Late st Contact Info) Description 12/27/2020 Transcribed Document [facility] Family Medicine [address] [place] [address] ProviderMacrina MD [address] [place] [address] Social History Tobacco Use Types [...] Initial Visit : No Referred by : Coat Fitter follow-up Referral Reason Comment : Critical care [...] supported, Feelings expressed, Information provided Spiritual and Quaker : Spiritual/Quaker support provided BRISSA SULLIVAN 12/27/2020 13:50 EDT documented in this encounter Plan of Treatment Not on file documented as of this encounter Visit Diagnoses Not on filedocumented in this encounter
--- OUTSIDE RECORDS SUMMARY | 2025-01-16 12:46 | XMS_ITS | Encounter Summary ---
Author Organization [facility] Address [address] [place] [address] Care Team Providers Care Steward/Stewardess Economy Class Name Role Phone Unavailable Primary Care Provider Unavailabl e Encounter Details Date Type Department Care Team (Late st Contact Info) Description 12/30/2020 Transcribed Document [facility] [place] Medicine [address] [place] [address] ProviderMacrina MD [address] [place] [address] Social History Tobacco Use Types Packs/Day Years [...]
--- OUTSIDE RECORDS SUMMARY | 2025-01-16 12:46 | XMS_ITS | Encounter Summary ---
Author Organization [facility] In iatives Address [address] [place] [address] Care Team Providers Care Senior Cost Analyst Name Role Phone Unavailable Primary Care Provider Unavailabl e Encounter Details Date Type Department Care Team (Late st Contact Info) Description 01/13/2021 Transcribed Document [facility] Family Medicine [address] [place] [address] ProviderMacrina MD [address] [place], [place] [address] Social History Tobacco Use Types Packs/Day Years [...] Yes All Active Orders Reviewed : Yes Dea Salcedo RN - 01/13/2021 17:15 EDT Electronically signed by Elmer [facility] Conversion Customer Service Administrator Cerner at 11/10/2022 9:18 AM CDT documented in this encounter Plan of Treatment Not on file documented as of this encounter Visit Diagnoses Not on filedocumented in this encounter
--- OUTSIDE RECORDS SUMMARY | 2025-01-16 12:46 | XMS_ITS | Encounter Summary ---
Author Organization [facility] Address [address] [place] [address] Care Team Providers Care Ambulatory Analyst Name Role Phone Unavailable Primary Care Provider Unavailabl e Encounter Details Date Type Department Care Team (Late st Contact Info) Description 01/18/2021 Transcribed Document [facility] [place] Family Medicine [address] [place] [address] ProviderMacrina MD [address] [place] [address] Social History Tobacco Use Types Packs/Day Years [...] On: 01/18/2021 10:52 EDT by Jordan Michelle PAINT FACTORY WORKER LEAD Meds to Bed Enrollment Patient Enrollment Decision: : No/do not enroll in meds to bed program Reason for Declining Meds to Bed Program: : Discharge to facility Jordan Michelle PAINT FACTORY WORKER LEAD - 01/18/2021 10:52 EDT documented in this encounter Plan of Treatment Not on file documented as of this encounter Visit Diagnoses Not on filedocumented in this encounter
--- OUTSIDE RECORDS SUMMARY | 2025-01-16 12:46 | XMS_ITS | Encounter Summary ---
Author Organization [facility] Address [address] [place] [address] Care Team Providers Care Fuel Island Attendant Name Role Phone Unavailable Primary Care Provider Unavailabl e Encounter Details Date Type Department Care Team (Late st Contact Info) Description 01/18/2021 Transcribed Document [facility] [place] Family Medicine [address] [place] [address] ProviderMacrina MD [address] [place] [address] Social History Tobacco Use Types [...] On: 01/18/2021 11:54 EDT by ASHLEY CHAIDEZ RN-Android Platform Developer Final Discharge Planning Discharge Arrangements : Patient Post-Acute Information Patient Name: JOSE ADORNO Gender: Male : [birth year] Age: 80 Years Janel Referral(s): Service: Organization: Business Address: Phone Number: Acute [facility] [address] [facility], [place], [address] Patient Offered Choice/Affiliations Explained : Yes Designation of Choice Signed : Yes Important Medicare Message Reviewed With : Patient Important Medicare Message Reviewed D/T : 01/17/2021 9:30 EDT Transportation Needs : Wheelchair van Discharge Transportation Arrangement Cmt : [facility] [place] at 1615 Follow Up Appointment Scheduled : Yes Is Patient High/Moderate Readmission Risk? : No Patient/Family Notified of Plan : Yes Support Person/Pt Rep Notified of Plan : Yes Patient/Family Notified : Patient/Spouse Is Patient Ready for Discharge? : Yes Physician Notified Patient is Ready for Discharge? 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 in agreement with the plan. ASHLEY CHAIDEZ RN-Android Platform Developer - 01/18/2021 11:54 EDT documented in this encounter Plan of Treatment Not on file documented as of this encounter Visit Diagnoses Not on filedocumented in this encounter
--- OUTSIDE RECORDS SUMMARY | 2025-01-16 12:46 | XMS_ITS | Encounter Summary ---
Author Organization [facility] [employer] [facility] Address [address] [place] [address] Care Team Providers Care Unstacker Name Role Phone Unavailable Primary Care Provider Unavailabl e Encounter Details Date Type Department Care Team (Late st Contact Info) Description 11/15/2019 Transcribed Document [facility] [place] Family Medicine [address] [place] [address] ProviderMacrina MD [address] [place] [address] Social History Tobacco Use Types [...] 11/15/2019 13:50 EDT Electronically signed by Elmer [facility] Conversion Public Health Service Officer Cerner at 11/10/2022 9:13 AM CDT documented in this encounter Plan of Treatment Not on file documented as of this encounter Visit Diagnoses Not on filedocumented in this encounter
--- OUTSIDE RECORDS SUMMARY | 2025-01-16 12:47 | XMS_ITS | Encounter Summary ---
Author Organization [facility] Address [address] [place] [address] Care Team Providers Care Bill Of Materials Clerk Name Role Phone Unavailable Primary Care Provider Unavailabl e Encounter Details Date Type Department Care Team (Late st Contact Info) Description 01/14/2021 Transcribed Document [facility] [place] Family Medicine [address] [place] [address] ProviderMacrina MD [address] [place] [address] Social History Tobacco Use Types [...] On: 01/14/2021 15:40 EDT by ASHLEY CHAIDEZ RN-Length Control TesterConcrete Float Maker Progress Note Patient Offered Choice/Affiliations Explained : Yes List/Info Provided Pt/Fam/Support Person : Other: Acute Rehab Were Referrals Sent to Post Acute Providers : Yes Is the Patient Meeting Medical Necessity : Yes Physician Agreeable to Move Forward with D/C Plan? : Yes Did you Attend Multidisciplinary Rounds? : Yes ASHLEY CHAIDEZ RN-Length Control Tester - 01/14/2021 15:42 EDT Discharge Arrangements : Patient Post-Acute Information Patient Name: JOSE ADORNO Gender: Male : 38 Age: 80 Years No Post-Acute Placement(s) Listed No Post-Acute Service(s) Listed No [place] Referral(s) Listed ASHLEY CHAIDEZ RN-Length Control Tester - 01/14/2021 15:40 EDT Discharge Options Discussed with Patient : Acute rehabilitation, Discharge transportation ASHLEY CHAIDEZ RN-Length Control Tester - 01/14/2021 15:42 EDT Barriers to Discharge Identified : Clinical Condition of Patient, Follow-Up appointments needed Barriers to Discharge Unresolved : Clinical Condition of Patient ASHLEY CHAIDEZ RN-Length Control Tester - 01/14/2021 15:40 EDT Narrative Progress Note [...] with RWx modA. DCP: Referral made to [facility], patient's 1st choice, via [facility]. bao Barnes said her MD would accept patient but would like for his PEG to be placed prior to discharge. Patient has traditional Medicare so he will not need a preauth. Historical Progress Note : HD#15; ELOS 3; LRR; BOOST 6; POD#15 - ElecTAVR/LVentTear/Tamponade = 02=1L; UH=237; TF/Corpak 50cc; voice improving; working w/ST for dysphagia; plan for repeat instrumental in 1 wk; ongoing therapy; spouse to provide choicing for STR; on transfer out of [facility]. SOPHY RM Rn-Length Control Tester - 01/11/21 09:38:52 HD#14; ELOS 3; LRR; BOOST 6; POD#14 - ElecTAVR/LVentTear/Tamponade = 02=2L; BIPAP prn; Duonebs; Cefepime/Zosyn; FEES today; Cardiology managing Tacycardia; per LOS recommendation - pt referred to LTAC; likely DCP subacute rehab; anticipate transfer to floor soon. SOPHY RM, Rn-Length Control Tester - 01/10/21 08:19:07 HD#13; ELOS 3; LRR; BOOST 6; POD#13 - ElectiveTAVR/LVentTear/Tamponade - 02=2L; BIPAP prn for WOB/hs; Duonebs/IS/FVD encouraged; Patricio gtt; central line d/c 01/08/PICC placed; T=100; Maxipime; working with therapy - very weak; Mod-Max A x2 to EOB - not safe to stand; ST - failed/ongoing dysphagia tx; Corpak/TF; DCP rehab - improving. SOPHY RM Rn-Length Control Tester - 01/09/21 07:48:59 HD#12; ELOS 3; LRR; BOOST 6; POD #12 - Electiv TAVR/LVentTear/Cardiac Tamponade SOPHY RM Rn-Length Control Tester - 01/08/21 14:56:21 HD#12; ELOS 3; LRR; BOOST 6; POD #12 - Electiv TAVR/LVentTear/Cardiac Tamponade/Embolic Strokes w/ R side weakness; RA; IS/FVD encouraged; report pt with delerium/lethargy overnight - pulled out IV; PICC ordered today; R arm weakness; Corpak/TF - failed ST evaluation - improving; DCP Rehab; continue to follow SOPHY RM Rn-Length Control Tester - 01/08/21 14:58:32 HD#11; ELOS 3; MRR; BOOST 6; POD#11 - Elective TAVR/LVentTear/Cardiac Tamponade; 02=2L; Maxipime/Ancef; IV Bumex; working w/therapy and stood at side of bed; SOPHY RM, Rn-Length Control Tester - 01/07/21 14:34:53 HD#11; ELOS 3; MRR; BOOST 6; POD#11 - Elective TAVR/LVentTear/Cardiac Tamponade; 02=2L; Maxipime/Ancef; IV Bumex; working w/therapy and stood at side of bed; ST - ongoing rec for NPO r/t dysphagia - tx; instrumental 3-4 days; Corpak/TF; DCP anticipate rehab; initial referrals placed thru [facility] and list w/post acute star ratings provided to pt for choicing. SOPHY RM Rn-Length Control Tester - 01/07/21 14:36:37 HD#8; ELOS 3; LRR; BOOST 6; POD#8 - Elec TAVR/LVentTear/Cardiac Tamponade - intubated fi02 100; awake/calm/following commands; bronchoscopy scheduled today; SBT; T=101.2; MRI - diffuse scattered bilateral infarcts; Dr. Navarro states during MDR that if pt is unable to successfully wean over weekend will need trach/peg consult on Thursday; continue to follow; will need therapy evaluations when extubated. SOPHY RM Rn-Length Control Tester - 01/04/21 15:16:12 HD#7; ELOS 3; LRR; BOOST 6; POD#7 - Elective TAVR/LVentTear/CardiacTamponade/Arrest - intubated fi02 40/peep 8; SBT x 2 hr; Fent/Precedex gtt; Corpak/TF; Humza CT in place; Neurology following - MRI diffuse scattered bilateral infarcts; pt w/improvement in movement of R side; PT/OT evaluations when extubated; DCP TBD - likely rehab. SOPHY RM Rn-Length Control Tester - 01/03/21 15:03:09 HD#6; ELOS 3; LRR; BOOST 6; POD #6 - Electiv TAVR/L Vent Tear/Cardiac Tamponode/Arrest - reintubated 01/01; fi02 40; Levo/Fent/Precedex gtt; wean sedation - on SBT 2hr TID; T=99.9; Dr. Navarro states during MDR that pt's spouse aware may need trach/peg; DCP TBD pending progress. SOPHY RM Rn-Length Control Tester - 01/02/21 14:55:12 HD#5; ELOS 3; LRR; BOOST 6; POD #5 - Elective TAVR/L Ventrial Tear/Cardiac Tamponode; extubated on 12/31 required reintubation today fi02 60/peep 8; Precedex/Fent gtt; Corpak/TF; IV Zosyn; CT draining; T=100; DCP TBD pending progress; will need therapy evals when appropriate. SOPHY RM Rn-Length Control Tester - 01/01/21 14:47:57 HD#4; ELOS 3; LRR; POD#4 - Electiv TAVR; L Ventrical Tear; intubated fi02 50; Cardene gtt; Corpak to be placed and TF initiated; SBT today; following commands; Head MRI ordered; possible extubation post MRI; no movement noted on R side; will need PT/OT evaluations when extubated; DCP pending progress - likely rehab. SOPHY RM, Rn-Length Control Tester - 12/31/20 14:58:43 DCP TBD - pending progress; OP Cardiac Rehab referral placed thru [facility]. SOPHY RM Rn-Length Control Tester - 12/28/20 12:42:03 ASHLEY CHAIDEZ RN-Length Control Tester - 01/14/2021 15:42 EDT documented in this encounter Plan of Treatment Not on file documented as of this encounter Visit Diagnoses Not on filedocumented in this encounter
--- OUTSIDE RECORDS SUMMARY | 2025-01-16 12:47 | XMS_ITS | Encounter Summary ---
Author Organization [facility] In [facility] Address [address] [place] [address] Care Team Providers Care Director Of Real Estate Name Role Phone Unavailable Primary Care Provider Unavailabl e Encounter Details Date Type Department Care Team (Late st Contact Info) Description 01/14/2021 Transcribed Document [facility] [place] Family Medicine [address] [place] [address] ProviderMacrina MD [address] [place], [place] [id number] Social History Tobacco Use Types Packs/Day Years [...] On: 01/14/2021 17:00 EDT by Pavel Rizvi, Library Media Technician-Student Nurse Chart Check Powerplans Initiated/Discontinued as Appropriate : Not applicable All Active Orders Reviewed : Yes Pavel Rizvi, Library Media Technician-Student Nurse - 01/14/2021 15:03 EDT Electronically signed by Elmer [facility] Conversion Motor Equipment Captain Cerner at 11/10/2022 9:12 AM CDT documented in this encounter Plan of Treatment Not on file documented as of this encounter Visit Diagnoses Not on filedocumented in this encounter
--- OUTSIDE RECORDS SUMMARY | 2025-01-16 12:47 | XMS_ITS | Encounter Summary ---
Author Organization [facility] [employer] [facility] Address [address] [place] [address] Care Team Providers Care Rfid Manager Name Role Phone Unavailable Primary Care Provider Unavailabl e Encounter Details Date Type Department Care Team (Late st Contact Info) Description 01/12/2021 Transcribed Document [facility] [place] [address] [place] [address] ProviderMacrina MD [address] [place] [address] Social History Tobacco Use Types [...] MD-CAR BASIC PCP: Robert Batista MD Primary Interpreter: Arthur Gomez MD Subjective NAD Health Status [...] At risk for sleep apnea / IMO 72350178 / Confirmed Colorectal surgery / SNOMED CT 0501799591 / Confirmed Aortic valve stenosis / SNOMED CT 430391483 / Confirmed HTN - Hypertension / SNOMED CT 6379964093 / Confirmed At risk for violence / IMO 88910652 / Confirmed Hypertension / SNOMED CT 44050001 / Confirmed Hyperlipidemia / SNOMED CT 13056324 / Confirmed Chronic anxiety / SNOMED CT 806077705 / Confirmed GERD - Gastro-esophageal reflux disease / SNOMED CT 8598203225 / Confirmed Disorder of prostate / SNOMED CT 02246453 / Confirmed Back pain, chronic / SNOMED CT 783806535 / Confirmed Aortic stenosis, severe / SNOMED CT 8238718798 / Confirmed Arthritis of right knee / SNOMED CT 8481299051 / Confirmed H/O peripheral neuropathy / SNOMED CT 560048694 / Confirmed feet tingle all the time [...] 11.8 H 472 / L 29.6 \ [id number] -- 12/27/2020 06:39 CR Chest 1 Vw [...] s/p pericardiocentesis and surgical repair of LV [place]. *PEA Arrest; CODE called 10 minutes to [...]
--- OUTSIDE RECORDS SUMMARY | 2025-01-16 12:47 | XMS_ITS | Encounter Summary ---
Author Organization [facility] Address [address] [place] [address] Care Team Providers Care Ems Helicopter Pilot Name Role Phone Unavailable Primary Care Provider Unavailabl e Encounter Details Date Type Department Care Team (Late st Contact Info) Description 01/14/2021 Transcribed Document [facility] [place] Family Medicine [facility] [place] [address] ProviderMacrina MD [address] [place], [place] [id number] Social History Tobacco Use Types Packs/Day Years [...] 1012. 01/02/21: POD#6 Intubated and sedated on [id number]/hr and Precedex .6mcg/kg/min. He is also on [...] 2L/NC TF 50ml/hr Continue P.T. Transfer to [facility] Pt will need rehab when clinically ready 01/11/21 POD#15 O2 91% 2L/NC TF 50ml/hr Continue P.T. Awaiting transfer to [facility] 01/12/2021 POD #16 Continues tube feedings, tolerating Steady progress 01/13/2021 POD #17 ALINA Bebe Will need rehab placement 01/14/2021 POD #18 Patient still not cleared for [facility] has accepted the patient, but he needs a PEG. Will consult general surgery for PEG placement [facility] Diagnosis Anxiety - Pre-Op Diagnosis, Medical. Cardiac [...] Pre-Op Diagnosis, Medical. Electronically signed by Elmer [facility] Conversion Search Engine Optimization Manager Cerner at 11/10/2022 9:18 AM CDT documented in this encounter Plan of Treatment Not on file documented as of this encounter Visit Diagnoses Not on filedocumented in this encounter
--- OUTSIDE RECORDS SUMMARY | 2025-01-16 12:47 | XMS_ITS | Encounter Summary ---
Author Organization [facility] Address [address] [place] [address] Care Team Providers Care Director Of Preclinical Research Name Role Phone Unavailable Primary Care Provider Unavailabl e Encounter Details Date Type Department Care Team (Late st Contact Info) Description 01/12/2021 Transcribed Document [facility] [place] Medicine [address] [place] [address] ProviderMacrina MD [address] [place], [place] 390461 Social History Tobacco Use Types Packs/Day Years [...]
--- OUTSIDE RECORDS SUMMARY | 2025-01-16 12:47 | XMS_ITS | Encounter Summary ---
Author Organization [facility] Address [address] [place] [address] Care Team Providers Care Training Facilitator Name Role Phone Unavailable Primary Care Provider Unavailabl e Encounter Details Date Type Department Care Team (Late st Contact Info) Description 01/14/2021 Transcribed Document [facility] [place] Family Medicine [facility] [place] [address] ProviderMacrina MD [address], [place] [id number] Social History Tobacco Use Types Packs/Day Years [...] 0.5 MCG/KG/. Awake and following commands, positive associate account director in bilateral hands. MRI brain yesterday revealed [...] 180s. 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; cherry cutter and moves extremities bilaterally but weaker on [...] At risk for sleep apnea / IMO [id number] / Confirmed Colorectal surgery / SNOMED CT 5648912806 / Confirmed Aortic valve stenosis / SNOMED CT 373021103 / Confirmed HTN - Hypertension / SNOMED CT 2117153468 / Confirmed At risk for violence / IMO 22158199 / Confirmed, Active Problems (14) Aortic stenosis, [...] 24 Hours) Radiology Results (Last 48 hours) [id number] -- 12/27/2020 06:39 CR Chest 1 Vw [...] benefit from inpatient rehab. Recommend transfer to [facility] for inpatient rehab. FULL CODE Prognosis [...]
--- OUTSIDE RECORDS SUMMARY | 2025-01-16 12:47 | XMS_ITS | Encounter Summary ---
Author Organization [employer] [facility] Address [address] [place] [address] Care Team Providers Care Protection Agent Name Role Phone Unavailable Primary Care Provider Unavailabl e Encounter Details Date Type Department Care Team (Late st Contact Info) Description 01/14/2021 Transcribed Document [facility] [place] Family Medicine [address] [place] [address] ProviderMacrina MD [address] [place] [address] Social History Tobacco Use Types [...] Respiratory Therapist II - 01/14/2021 11:08 EDT documented in this encounter Plan of Treatment Not on file documented as of this encounter Visit Diagnoses Not on filedocumented in this encounter
--- OUTSIDE RECORDS SUMMARY | 2025-01-16 12:47 | XMS_ITS | Encounter Summary ---
Author Organization [facility] Address [address] [place] [address] Care Team Providers Care Biomedical Specialist Name Role Phone Unavailable Primary Care Provider Unavailabl e Encounter Details Date Type Department Care Team (Late st Contact Info) Description 01/08/2021 Transcribed Document [facility] [place] Family Medicine [address] [place] [address] ProviderMacrina MD [address] [place], [place] 930231 Social History Tobacco Use Types Packs/Day Years [...]
--- OUTSIDE RECORDS SUMMARY | 2025-01-16 12:47 | XMS_ITS | Encounter Summary ---
Author Organization [facility] In iatives Address [address] [place] [address] Care Team Providers Care Legal Entity Controller Name Role Phone Unavailable Primary Care Provider Unavailabl e Encounter Details Date Type Department Care Team (Late st Contact Info) Description 01/12/2021 Transcribed Document [facility] [place] [address] [place] [address] ProviderMacrina MD [address], [place] 6296[address] Social History Tobacco Use Types Packs/Day Years [...] Reviewed : Yes Dea Salcedo RN - 01/12/2021 17:14 EDT Electronically signed by Elmer [facility] Conversion Hospice Rn Cerner at 11/10/2022 9:31 AM CDT documented in this encounter Plan of Treatment Not on file documented as of this encounter Visit Diagnoses Not on filedocumented in this encounter
--- OUTSIDE RECORDS SUMMARY | 2025-01-16 12:47 | XMS_ITS | Encounter Summary ---
Author Organization [facility] Address [address] [place] [address] Care Team Providers Care Decoration Checker Name Role Phone Unavailable Primary Care Provider Unavailabl e Encounter Details Date Type Department Care Team (Late st Contact Info) Description 01/13/2021 Transcribed Document [facility] [place] Family Medicine [facility] [place] [address] ProviderMacrina MD [address], [place] [id number] Social History Tobacco Use Types Packs/Day Years [...] 1012. 01/02/21: POD#6 Intubated and sedated on [id number]/hr and Precedex .6mcg/kg/min. He is also on [...] 2L/NC TF 50ml/hr Continue P.T. Transfer to [facility] Pt will need rehab when clinically ready 01/11/21 POD#15 O2 91% 2L/NC TF 50ml/hr Continue P.T. Awaiting transfer to [facility] 01/12/2021 POD #16 Continues tube [...] Diagnosis, Medical. Electronically signed by Elmer [facility] Conversion Bookmobile Clerk Cerner at 11/10/2022 9:13 AM CDT documented in this encounter Plan of Treatment Not on file documented as of this encounter Visit Diagnoses Not on filedocumented in this encounter
--- OUTSIDE RECORDS SUMMARY | 2025-01-16 12:47 | XMS_ITS | Encounter Summary ---
Author Organization [employer] In [facility] Address [address] [place] [address] Care Team Providers Care Vp Director Of Finance Name Role Phone Unavailable Primary Care Provider Unavailabl e Encounter Details Date Type Department Care Team (Late st Contact Info) Description 01/08/2021 Transcribed Document [facility] Cardiology [address] [place] [address] Danyelle Gomez MD [address] [facility] [address] [place] [id number] Social History Tobacco Use Types Packs/Day Years [...] Basic Information PCP: Robert Batista MD Primary Life Skills Worker: Danyelle Gomez MD Subjective Resting in bed. [...] (Current Encounter/Past 24 Hours) ProBNP 5653 pg/mL [place] 01/07/2021 05:56 Radiology Results (Last 48 hours) [id number] -- 12/27/2020 06:39 CR Chest 1 Vw [...] s/p pericardiocentesis and surgical repair of LV [place]. PEA Arrest; CODE called 10 minutes to [...]
--- OUTSIDE RECORDS SUMMARY | 2025-01-16 12:47 | XMS_ITS | Encounter Summary ---
Author Organization [facility] Address [address] [place] [address] Care Team Providers Care Transitional Living Specialist Name Role Phone Unavailable Primary Care Provider Unavailabl e Encounter Details Date Type Department Care Team (Late st Contact Info) Description 01/12/2021 Transcribed Document [facility] [place] Family Medicine [facility] [place] [place] [address] ProviderMacrina MD [address] [place], [place] [phone] Social History Tobacco Use Types Packs/Day Years [...] 1012. 01/02/21: POD#6 Intubated and sedated on [id number]/hr and Precedex .6mcg/kg/min. He is also on [...] 2L/NC TF 50ml/hr Continue P.T. Transfer to [facility] Pt will need rehab when clinically ready 01/11/21 POD#15 O2 91% 2L/NC TF 50ml/hr Continue P.T. Awaiting transfer to [facility] 01/12/2021 POD #16 Continues tube feedings, [...]
[2025-01-16 12:55] LABS: Basophils % 0.4 % (0.1-2.0); Eosinophils # 0.2 Kmm3 (0.0-0.4); Eosinophils % 2.2 % (0.1-12.0); Hematocrit 36.1 % (42.0-52.0); Immature Granulocytes # 0.02 10^3uL; Immature Granulocytes % 0.3 %; Lymphocytes # 0.7 K/mm3 (0.7-4.5); Lymphocytes % 9.5 % (10-50); Mean Corpuscular HGB Conc 30.5 g/dL (31.8-35.4); Mean Corpuscular Hemoglobin 25.4 pg (27.0-31.2); Mean Corpuscular Volume 83.4 fl (80-94); Mean Platelet Volume 11.4 fl (7.4-10.4); Monocytes # 0.6 K/mm3 (0.1-1.0); Monocytes % 7.7 % (1.7-9.3); Neutrophils # 6.1 K/mm3 (1.8-7.8); Neutrophils % 79.9 % (37.0-80.0); Nucleated Red Blood Cells # 0 10^3/uL; Nucleated Red Blood Cells % 0 %; Platelet Count 204 K/mm3 (142-424); Red Blood Count 4.33 M/mm3 (4.60-6.20); Red Cell Distribution Width 15.3 % (11.5-17.5); Red Cell Distribution Width-SD 46.9 fL; White Blood Count 7.7 K/mm3 (4.8-10.8)
[2025-01-16 13:02] LABS: Albumin Level 3.8 g/dl (3.5-5.0); Chloride 105 mmol/L (98-107); Potassium 4.7 mmoL/L (3.5-5.1); Sodium 141 mmol/L (136-145)
[2025-01-16 13:04] LABS: Anion Gap 14.7 mEq/L (5-15); Blood Urea Nitrogen 51 mg/dl (9-20); Carbon Dioxide 26 mmol/L (22.0-30.0); Creatinine Clearance Estimated 23 mL/min (50-200); Estimated Glomerular Filt Rate 32 ml/min (>60); GFR (African American) 39 ML/MIN (>60)
[2025-01-16 13:05] LABS: Alanine Aminotransferase 13 U/L (12-78); Albumin/Globulin Ratio 1.1 (1.1-1.8); Alkaline Phosphatase 172 U/L (38-126); Aspartate Amino Transferase 25 U/L (17-59); Bilirubin,Total 0.5 mg/dl (0.2-1.3); Calcium 9.1 mg/dl (8.4-10.2); Globulin 3.4 g/dL (1.3-3.2); Glucose 112 mg/dl (74-100); Magnesium 2.4 mg/dl (1.6-2.3); Total Protein,Serum 7.2 g/dl (6.3-8.2)
--- NOTE | 2025-01-16 13:12 | CT_ITS ---
FINAL REPORT TECHNIQUE: Pre-and postcontrast images of the abdomen were performed by computed tomography. Extensive 3-D reconstruction images were performed. A CTA was performed. This study was performed with techniques to keep radiation doses as low as reasonably achievable (ALARA). Individualized dose reduction techniques using automated exposure control or adjustment of mA and/or kV according to the patient's size were employed. CLINICAL HISTORY: History of TAVR, syncope COMPARISON: None FINDINGS: ABDOMEN AND PELVIS: The lung bases are clear. Precontrast images demonstrate no evidence of nephrolithiasis. There is an exophytic nodule in the posterolateral aspect of the right kidney, which is denser than a typical simple cyst, favor complicated cyst. The gallbladder has been surgically resected. No adrenal masses are identified. The liver, spleen and pancreas are unremarkable. Mild fecal impaction is present. The appendix is normal in appearance. No pelvic mass or free fluid is identified. The patient has undergone a prior left inguinal hernia repair. There is bladder wall thickening eccentric to the left, measuring up to 13 mm in thickness. A 10 mm bladder stone is present as well. CTA: The abdominal aorta is proper caliber without evidence of dissection. There is mild diffuse plaque disease without evidence of aneurysm. There are mild stenoses of the celiac and superior mesenteric arteries. There is moderate right renal artery stenosis measuring up to 50%. While the left renal artery is widely patent. The left common iliac artery has a focus of 30% diameter stenosis, while the right common iliac artery is unremarkable. The external iliac arteries are widely patent bilaterally. IMPRESSION: 1. No evidence of aortic dissection is identified. 2. There is mild diffuse plaque in the abdominal aorta, with mild to moderate stenoses of the left common iliac and right renal arteries. 3. No acute findings are present in the abdomen. 4. The bladder wall is thickened, eccentric to the left, measuring up to 13 mm in thickness. A 10 mm bladder stone is present. Reviewed, Interpreted and Dictated by Lily Portillo MD Transcribed by Rosalba Monsivais Authenticated and . [facility]
--- NOTE | 2025-01-16 13:12 | CT_ITS ---
FINAL REPORT TECHNIQUE: Thin section axial CT with contrast with multiplanar reconstruction This study was performed with techniques to keep radiation doses as low as reasonably achievable, (ALARA). Individualized dose reduction techniques using automated exposure control or adjustment of mA and/or kV according to the patient's size were employed. CLINICAL HISTORY: History of TAVR, syncope COMPARISON: 02/11/2022 FINDINGS: Pulmonary vessels enhance in normal fashion without evidence of embolism. Thoracic aorta shows no dissection or aneurysm. There is an 11 mm small saccular aneurysm or penetrating ulcer involving the lateral aortic arch. The mid ascending aorta measures 38 mm without evidence of dissection or aneurysm. The patient is post aortic valve replacement. No pulmonary mass or infiltrate is present. There is no significant pleural effusion. There is no significant pericardial effusion. No mediastinal or hilar adenopathy is present. IMPRESSION: 1. No evidence of aortic dissection 2. 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 Reviewed, Interpreted and Dictated by Lily Portillo MD Transcribed by Rosalba Monsivais Authenticated and [facility]
--- NOTE | 2025-01-16 13:12 | HMH.EDGENADL ---
Discharge Plan Disposition Patient Disposition: Admitted Clinical Impressions Clinical Impression: JINNY (acute kidney injury) Discharge ED Provider: Dalton Willis Adult HPI General Chief complaint: Syncope Stated complaint: Low BP Time Seen by Provider: 01/16/25 13:06 Mode of Arrival: Wheelchair Source of Information: Patient Description of Symptoms (Recalled from ER Triage Doc. by RN): pt to the ED from pain management after a pre-syncopal episode in the office. office staff stated the patient stood up to his walker, became dizzy and light headed. when staff checked his vitals the patient was 70/40BP. pt stated the patient has had multiple falls at home recently when standing or ambulating. History of Present Illness HPI narrative: Francesco Arce is an 84-year-old past medical history of a TAVR, left bundle branch block, aortic stenosis, CVA presenting for syncopal episode. According patient he was at his pain clinic today when he got dizzy, lightheaded and was told that he passed out and woke up here. There was no seizure-like activity according to family at bedside. He has been having dizziness spells for the last 2 weeks and said that it happens almost every time that he gets up. He has not been seen for this prior to today. Patient said that his dizziness is something he has not experienced prior to these last 2 weeks. Denies numbness, tingling, weakness, chest pain, fevers or shortness of breath Related Data Home Medications ?Medication ?Instructions ?Recorded ?Confirmed lisinopril 10 mg tablet 10 mg PO DAILY 02/20/20 01/16/25 omeprazole magnesium 20 mg 20 mg PO DAILY 03/03/24 01/16/25 tablet,delayed release aspirin 81 mg tablet 81 mg PO DAILY 01/16/25 01/16/25 gabapentin 300 mg capsule 1,200 mg PO HS 01/16/25 01/16/25 gabapentin 300 mg capsule 900 mg PO DAILY 01/16/25 01/16/25 tamsulosin 0.4 mg capsule 0.4 mg PO DAILY 01/16/25 01/16/25 Previous Rx's ?Medication ?Instructions ?Recorded duloxetine 60 mg capsule,delayed 60 mg PO BID #60 caps 08/26/24 release finasteride 5 mg tablet 5 mg PO DAILY 30 days #30 tabs 10/07/24 Allergies Allergy/AdvReac Type Severity Reaction Status Date / Time No Known Allergies Allergy Verified 01/05/25 10:10 [facility] Disclaimer: The information contained in this section may have been updated after the patient was seen, as this information can be updated by other users. Medical History (Updated 01/16/25 @ 16:26 by Carlotta Dodson APRN) Dehydration Gait disturbance Elevated white blood cell count Aspiration into airway Bowel obstruction Hematemesis UTI (urinary tract infection) Colon stricture Large bowel obstruction Hematuria History of gastroesophageal reflux (GERD) History of cataract Sarcoma Sarcoma Tremor Peripheral neuropathy Rectal stricture Chest pain Stroke Colon cancer Left hand paresthesia Left hand pain Chronic pain of right knee Stricture of sigmoid colon CVA (cerebrovascular accident) HTN (hypertension) Surgical History H/O hernia repair History of cataract surgery History of open heart surgery History of aortic valve replacement History of heart surgery History of cholecystectomy History of colon resection History of colonoscopy Family History (Updated 01/16/25 @ 15:55 by Shayy Hernandez RN) Other Cancer Heart attack Hypertension Stroke Social History (Updated 01/16/25 @ 15:56 by Shayy Hernandez RN) Smoking Status: Never smoker second hand exposure: No alcohol intake: former substance use type: denies use current occupational status: retired Travel in the last 8 weeks?: None adopted: No caregiver/support person: Yes foster care: No household members: spouse housing: house lives independently: No marital status: 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 occupational exposures/hazards: No caffeine: Yes Have you lived/traveled outside [place] in past 30 days?: No Contact w/someone who lives/traveled outside [place] past 30 days?: No Exposure to someone with infectious disease in past 14 days?: No Do you have a fever (greater than 100.4 F or 38 C)?: No Have you tested positive for COVID-19?: No Exposed to someone with COVID-19 in past 14 days?: No Do you have a sore throat?: No Do you have a cough?: No Do you have any weakness?: No Do you have any diarrhea?: No Are you experiencing any unusual bleeding?: No Do you have any muscle aches/pain?: No Do you have any abdominal pain?: No Are you experiencing loss of taste or smell?: No Other Medical History Have you received the Flu Vaccine for this season: No Have you received the Pneumonia Vaccine: Yes ROS Obtained: Yes All systems reviewed & no additional complaints except as documented Physical Exam General General appearance: alert and in no apparent distress Eye Eye exam: Present normal appearance Chest Chest inspection: Present other (Midline thoracic scar without tenderness to palpation) Respiratory Respiratory exam: Present normal lung sounds bilaterally; Absent respiratory distress or wheezes Cardiovascular Cardiovascular exam: Present regular rate and normal rhythm Abdominal Exam Abdominal exam: Present soft; Absent distention or tenderness Neurological Exam Neurological exam: Present alert and oriented X3 Skin Skin exam: Present warm Medical Decision Making Medical Records Screening: Per USPSTF and CDC recommendations, given the prevalence of disease in our region, it is our hospital?s policy to screen for HIV and viral Hepatitis for all patients aged 18 and over and those with ongoing risk factors. [place] Inquiry Pt receiving controlled substance: No Vital Signs: 01/16/25 12:32 01/16/25 13:04 01/16/25 13:07 Temperature 98.1 F Temperature Source Oral Pulse Rate 52 L Pulse Rate [Left Radial] 63 Respiratory Rate 17 12 Blood Pressure 64/29 L Blood Pressure [Orthostatic Lying Right Arm] 99/53 L Blood Pressure [Orthostatic Sitting Right Arm] 94/52 L Blood Pressure [Orthostatic Standing Right Arm] 64/29 L Blood Pressure [Right Arm] 80/42 L Blood Pressure Mean Blood Pressure Mean [Right Arm] 54 Blood Pressure Source [Right Arm] Automatic Cuff Blood Pressure Position [Right Arm] Sitting 02 Sat by Pulse Oximetry 97 95 Oxygen Delivery Method Room Air Room Air 01/16/25 13:30 01/16/25 13:49 01/16/25 14:01 Temperature Temperature Source Pulse Rate 65 62 63 Pulse Rate [Left Radial] Respiratory Rate 17 12 11 L Blood Pressure 104/54 L 111/58 L 114/65 Blood Pressure [Orthostatic Lying Right Arm] Blood Pressure [Orthostatic Sitting Right Arm] Blood Pressure [Orthostatic Standing Right Arm] Blood Pressure [Right Arm] Blood Pressure Mean 70 78 86 Blood Pressure Mean [Right Arm] Blood Pressure Source [Right Arm] Blood Pressure Position [Right Arm] 02 Sat by Pulse Oximetry 97 98 97 Oxygen Delivery Method 01/16/25 14:30 01/16/25 15:01 01/16/25 15:30 Temperature Temperature Source Pulse Rate 62 65 65 Pulse Rate [Left Radial] Respiratory Rate 18 16 16 Blood Pressure 113/63 118/73 128/65 Blood Pressure [Orthostatic Lying Right Arm] Blood Pressure [Orthostatic Sitting Right Arm] Blood Pressure [Orthostatic Standing Right Arm] Blood Pressure [Right Arm] Blood Pressure Mean 90 95 100 Blood Pressure Mean [Right Arm] Blood Pressure Source [Right Arm] Blood Pressure Position [Right Arm] 02 Sat by Pulse Oximetry 96 97 97 Oxygen Delivery Method 01/16/25 15:45 Temperature 98.2 F Temperature Source Pulse Rate 66 Pulse Rate [Left Radial] Respiratory Rate 20 Blood Pressure 128/65 Blood Pressure [Orthostatic Lying Right Arm] Blood Pressure [Orthostatic Sitting Right Arm] Blood Pressure [Orthostatic Standing Right Arm] Blood Pressure [Right Arm] Blood Pressure Mean Blood Pressure Mean [Right Arm] Blood Pressure Source [Right Arm] Blood Pressure Position [Right Arm] 02 Sat by Pulse Oximetry Oxygen Delivery Method Room Air Lab Data Lab Results 01/16/25 12:40: WBC 7.7, RBC 4.33 L, Hgb 11.0 L, Hct 36.1 L, MCV 83.4, MCH 25.4 L, MCHC 30.5 L, RDW 15.3, Plt Count 204, MPV 11.4 H, Neut % (Auto) 79.9, Lymph % (Auto) 9.5 L, Morrow % (Auto) 7.7, Eos % (Auto) 2.2, Baso % (Auto) 0.4, Neut # (Auto) 6.1, Lymph # (Auto) 0.7, Morrow # (Auto) 0.6, Eos # (Auto) 0.2, Baso # (Auto) 0.0, Sodium 141, Potassium 4.7, Chloride 105, Carbon Dioxide 26, Anion Gap 14.7, BUN 51 H, Creatinine 2.00 H, Estimated Creat Clear 23, Estimated GFR 32 L, Est GFR ( Amer) 39 L, Glucose 112 H, Calcium 9.1, Magnesium 2.4 H, Total Bilirubin 0.5, AST 25, ALT 13, Alkaline Phosphatase 172 H, Troponin I < 0.01, Total Protein 7.2 D, Albumin 3.8, Globulin 3.4 H, Albumin/Globulin Ratio 1.1, TSH 0.79, Thyroxine (T4) 6.0 01/16/25 12:40 01/16/25 12:40 Orders (Tests/Meds): ED MEDICATIONS Generic Name Dose Route Start Last Admin Trade Name Philomena PRN Reason Stop Dose Admin Acetaminophen 650 mg 01/16/25 15:25 Acetaminophen 325mg Tab PO 02/15/25 15:24 Q4HP PRN Fever or Mild Pain (1-3) Aspirin 81 mg 01/17/25 09:00 Aspirin Ec 81mg Tablet PO 02/16/25 08:59 DAILY BRIDGETT Duloxetine HCl 60 mg 01/16/25 21:00 Duloxetine 30mg Capsule.Dr PO 02/15/25 20:59 BID BRIDGETT Enoxaparin Sodium 30 mg 01/17/25 09:00 Enoxaparin 30mg/0.3ml Syringe SUBCUT 02/16/25 08:59 DAILY BRIDGETT Finasteride 5 mg 01/17/25 09:00 Finasteride 5mg Tablet PO 02/16/25 08:59 DAILY BRIDGETT Gabapentin 600 mg 01/17/25 09:00 Gabapentin 600mg Tablet PO 02/16/25 08:59 DAILY BRIDGETT Gabapentin 600 mg 01/16/25 21:00 Gabapentin 300mg Capsule PO 02/15/25 20:59 HS BRIDGETT Lactated Ringer's 1,000 mls @ 125 mls/hr 01/16/25 16:00 01/16/25 16:15 Lactated Ringer's 1000 Ml Bag IV 02/15/25 15:59 125 mls/hr .Q8H BRIDGETT Administration Pantoprazole Sodium 40 mg 01/16/25 21:00 Pantoprazole 40mg Tablet PO 02/15/25 20:59 HS BRIDGETT Sodium Chloride 10 ml 01/16/25 15:48 Sodium Chloride 0.9% 10ml Flush Syringe IV 02/15/25 15:47 NEEDED PRN Maintain IV Site Tamsulosin HCl 0.4 mg 01/17/25 09:00 Tamsulosin 0.4mg Capsule PO 02/16/25 08:59 DAILY BRIDGETT Discontinued Medications Generic Name Dose Route Start Last Admin Trade Name Freautumn PRN Reason Stop Dose Admin Gabapentin 900 mg 01/17/25 09:00 Gabapentin 300mg Capsule PO 02/16/25 08:59 DAILY BRIDGETT Gabapentin 1,200 mg 01/16/25 21:00 Gabapentin 300mg Capsule PO 02/15/25 20:59 HS BRIDGETT Lactated Ringer's 500 mls @ 999 mls/hr 01/16/25 13:13 06/23/25 13:26 Lactated Ringer's 500ml IV 01/16/25 13:43 999 mls/hr .Q31M ONE Administration Iopamidol 80 ml 01/16/25 14:15 01/16/25 14:19 Iopamidol-370 (76%);100ml Bottle IV 01/16/25 14:16 80 ml ONCE ONE Administration Sodium Chloride 50 ml 01/16/25 14:15 01/16/25 14:19 0.9 % Sodium Chloride 50 Ml Vial IV 01/16/25 14:16 50 ml ONCE ONE Administration Sodium Chloride 10 ml 01/16/25 14:15 01/16/25 14:19 Sodium Chloride 0.9% 10ml Syr (Rad Only) IV 01/16/25 14:16 10 ml ONCE ONE Administration ORDERS Category Date Time Status CT angio abdomen pelvis Stat Cat Scan 01/16/25 13:12 Completed CTA Chest [CT angio chest - dissection] Stat Cat Scan 01/16/25 13:12 Completed XR chest portable Stat Exams 01/16/25 12:37 Completed Complete Blood Count Auto Diff Stat Lab 01/16/25 12:40 Completed Comprehensive Metabolic Panel Stat Lab 01/16/25 12:40 Completed Magnesium Stat Lab 01/16/25 12:40 Completed T4 (Thyroxine) Stat Lab 01/16/25 12:40 Completed Thyroid Stimulating Hormone Stat Lab 01/16/25 12:40 Completed Troponin I Q3H Lab 01/16/25 15:59 Received Troponin I Q3H Lab 01/16/25 18:45 Ordered Troponin I Stat Lab 01/16/25 12:40 Completed Medical Decision Narrative: In summary, this 84-year-old male presents to the emergency department today with syncope. On initial evaluation patient is hypotensive but alert and oriented in no acute distress. Patient required fluid administration upon arrival for improvement of his blood pressure. Additionally bedside ultrasound was done which showed concern for akinesis of his septum and apical heart differential diagnosis includes but is not limited to congestive heart failure, ACS, electrolyte abnormality, arrhythmia, aortic dissection, cardiac tamponade. Based on these concerns, I ordered CTs, labs and EKG. ECG personally interpreted demonstrates left bundle branch block, does not meet Sgarbossa criteria,. Patient received fluids for treatment. Labs personally reviewed demonstrate JINNY, anemia, no leukocytosis. XR personally interpreted demonstrates no large pneumothorax or pleural effusion. CT imaging personally interpreted demonstrate no aortic dissection, pneumothorax, hemoperitoneum or pneumoperitoneum. I had an interactive discussion with hospital medicine due to patient's JINNY and high risk syncope.. On reassessment blood pressure improved but due to labs was admitted for further management.. Critical Care Critical Care Time Critical Care Time: Yes Attestation: On 01/16/25, the high probability of a clinically significant, sudden or life threatening deterioration of the following system(s) required my full and direct attention, intervention and personal management. The time I documented below is in addition to time spent performing reported procedures but includes the following listed in this critical care notation. Total Time Total Critical Care Time: 36
[2025-01-16] MEDS: RINGERS SOLUTION,LACTATED 500 ML 999 ML IV (13:26)
[2025-01-16 13:36] LABS: Thyroid Stimulating Hormone 0.79 uIU/mL (0.465-4.68)
[2025-01-16 13:37] LABS: Troponin I < 0.01 ng/ml (0.00-0.034)
[2025-01-16] MEDS: IOPAMIDOL-370 (76%);100ML BOTTLE 80 ML IV (14:19)
[2025-01-16] MEDS: 0.9 % SODIUM CHLORIDE 50 ML VIAL IV (14:19)
[2025-01-16] MEDS: SODIUM CHLORIDE 0.9% 10ML SYR (RAD ONLY) 10 ML IV (14:19)
--- NOTE | 2025-01-16 14:21 | PC.NURSE ---
pt back from RAD
--- NOTE | 2025-01-16 14:32 | PC.NURSE ---
gave pt something to drink. no needs at this time
--- NOTE | 2025-01-16 15:14 | PC.NURSE ---
house notified of admission
--- NOTE | 2025-01-16 15:28 | P.HP_ITS ---
<Statement entered by Cody Talley MD - 01/18/25 22:23> Evaluated by the patient and agree with plan of care as outlined by the RETURNED GOODS RECEIVING CLERK. History of Present Illness *Admission Date: 10/15/24 *Reason for visit:: Syncope, JINNY *History of present illness: Mr. Adorno is an 84-year-old male who presented to the emergency department after a syncopal episode in the pain management office. He has a history of degenerative arthritis, right hip fracture, peripheral or vascular disease, TAVR, aortic stenosis, BPH with urinary retention, colon cancer, CVA. In the ER he stated that he got dizzy, and lightheaded, and passed out. When he came to he stated that he has been having dizzy spells for about 2 weeks. He was found to be hypotensive, 70s/40s, and states that he has had multiple falls at home recently. Patient did deny chest pain, shortness of breath, nausea, vomiting, diarrhea. Workup in the emergency room revealed a JINNY, with a BUN of 51, creatinine of 2.00. Baseline creat 0.6 in September/2024. Due to the decreased kidney function and weakness, patient admitted for further monitoring. [facility] Disclaimer: The information contained in this section may have been updated after the patient was seen, as this information can be updated by other users. Medical History (Updated 01/16/25 @ 16:26 by Carlotta Dodson APRN) Dehydration Gait disturbance Elevated white blood cell count Aspiration into airway Bowel obstruction Hematemesis UTI (urinary tract infection) Colon stricture Large bowel obstruction Hematuria History of gastroesophageal reflux (GERD) History of cataract Sarcoma Sarcoma Tremor Peripheral neuropathy Rectal stricture Chest pain Stroke Colon cancer Left hand paresthesia Left hand pain Chronic pain of right knee Stricture of sigmoid colon CVA (cerebrovascular accident) HTN (hypertension) Surgical History H/O hernia repair History of cataract surgery History of open heart surgery History of aortic valve replacement History of heart surgery History of cholecystectomy History of colon resection History of colonoscopy Family History (Updated 01/16/25 @ 15:55 by Shayy Hernandez RN) Other Cancer Heart attack Hypertension Stroke Social History (Updated 01/16/25 @ 15:56 by Shayy Hernandez, SHYAM) Smoking Status: Never smoker second hand exposure: No alcohol intake: former substance use type: denies use current occupational status: retired Travel in the last 8 weeks?: None adopted: No caregiver/support person: Yes foster care: No household members: spouse housing: house lives independently: No marital status: 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 occupational exposures/hazards: No caffeine: Yes Have you lived/traveled outside US in past 30 days?: No Contact w/someone who lives/traveled outside US past 30 days?: No Exposure to someone with infectious disease in past 14 days?: No Do you have a fever (greater than 100.4 F or 38 C)?: No Have you tested positive for COVID-19?: No Exposed to someone with COVID-19 in past 14 days?: No Do you have a sore throat?: No Do you have a cough?: No Do you have any weakness?: No Do you have any diarrhea?: No Are you experiencing any unusual bleeding?: No Do you have any muscle aches/pain?: No Do you have any abdominal pain?: No Are you experiencing loss of taste or smell?: No Other Medical History Have you received the Flu Vaccine for this season: Yes Have you received the Pneumonia Vaccine: Yes Review of Systems Review of Systems Review of systems:: pertinent systems reviewed and negative unless documented below Constitutional Constitutional: Reports as per HPI, Reports body ache(s), Reports frequent falls, Reports poor appetite and Reports weakness Eyes Eyes: Reports as per HPI ENT Ears, Nose, Mouth, and Throat: Reports as per HPI *Cardiovascular Cardiovascular: Reports as per HPI and Reports lightheadedness *Respiratory Respiratory: Reports as per HPI *Gastrointestinal Gastrointestinal: Reports as per HPI, Denies abdominal pain, Denies cramping and Denies diarrhea *Genitourinary Genitourinary: Reports as per HPI and Denies dysuria *Musculoskeletal Musculoskeletal: Reports as per HPI, Reports atrophy and Reports muscle weakness Integumentary/Breasts Skin/Breast: Reports as per HPI Comments: Scattered bruising *Neurologic Neurologic: Reports as per HPI, Reports frequent falls and Reports weakness Psychiatric Psychiatric: Reports as per HPI Endocrine Endocrine: Reports as per HPI Hematologic/Lymphatic Hematologic/Lymphatic: Reports as per HPI Allergic/Immunologic Allergic/Immunologic: Reports as per HPI Meds Home Medications and Allergies Home Medications ?Medication ?Instructions ?Recorded ?Confirmed ?Type lisinopril 10 mg tablet 10 mg PO DAILY 07/27/20 06/2 3/25 History omeprazole magnesium 20 mg 20 mg PO DAILY 03/03/24 History tablet,delayed release duloxetine 60 mg capsule,delayed 60 mg PO BID #60 caps 08/26/24 01/16/25 Rx release finasteride 5 mg tablet 5 mg PO DAILY 30 days #30 ta bs 10/07/24 01/16/25 Rx aspirin 81 mg tablet 81 mg PO DAILY 01/16/2512/26 History gabapentin 300 mg capsule 1,200 mg PO HS 01/16/2512/26 History gabapentin 300 mg capsule 900 mg PO DAILY 01/16/25 History tamsulosin 0.4 mg capsule 0.4 mg PO DAILY 01/16/25 History New Prescriptions to Start Prescriptions: Allergies Allergy/AdvReac Type Severity Reaction Status Date / Time No Known Allergies Allergy Verified 01/05/25 10:10 Exam Data for Last 24 hours Vital signs and Labs for Last 24 Hours: Temp Pulse Resp BP Pulse Ox O2 Del Method 98.1 F 65 16 118/73 97 Room Air 01/16/25 12:32 01/16/25 15:01 01/16/25 15:01 01/16/25 15:01 01/16/25 15:01 01/16/25 13:04 Laboratory Results - last 24 hr 01/16/25 12:40: WBC 7.7, RBC 4.33 L, Hgb 11.0 L, Hct 36.1 L, MCV 83.4, MCH 25.4 L, MCHC 30.5 L, RDW 15.3, Plt Count 204, MPV 11.4 H, Neut % (Auto) 79.9, Lymph % (Auto) 9.5 L, [place] % (Auto) 7.7, Eos % (Auto) 2.2, Baso % (Auto) 0.4, Neut # (Auto) 6.1, Lymph # (Auto) 0.7, [place] # (Auto) 0.6, Eos # (Auto) 0.2, Baso # (Auto) 0.0, Sodium 141, Potassium 4.7, Chloride 105, Carbon Dioxide 26, Anion Gap 14.7, BUN 51 H, Creatinine 2.00 H, Estimated Creat Clear 23, Estimated GFR 32 L, Est GFR ( Amer) 39 L, Glucose 112 H, Calcium 9.1, Magnesium 2.4 H, Total Bilirubin 0.5, AST 25, ALT 13, Alkaline Phosphatase 172 H, Troponin I < 0.01, Total Protein 7.2 D, Albumin 3.8, Globulin 3.4 H, Albumin/Globulin Ratio 1.1, TSH 0.79, Thyroxine (T4) 6.0 I & O for Last 24 hours: Intake & Output 01/13/25 01/14/25 01/15/25 01/16/25 23:59 23:59 23:59 23:59 Weight 58.967 kg Radiology Reports for the Last 24 Hours: The CT of abdomen Narrative: . 6.6 mm penetrating atherosclerotic ulcer in the proximal left common iliac artery. No evidence of perforation or rupture. 2. Concern for possible [id number] stenosis at the rectosigmoid anastomosis with concomitant segmental colitis to the sigmoid which is just proximal to the anastomotic sutures. This in turn is causing a upstream colonic dilation (either an ileus or partial obstruction) without evidence of perforation. Considering that the anastomosis is similar to prior studies, and ileus would be more likely. 3. No definitive evidence for acute GI bleed. 4. Transient small bowel intussusception in the right upper quadrant. This is a self-limiting process in adults. Consider follow-up if warranted. 5. Trace bilateral pleural effusions, slightly larger on the right, with chronic pleural calcifications. 6. High likelihood of compressive atelectasis in the right lung base. Superimposed infectious pneumonic process should be entertained in the Constitutional Constitutional: mild distress, thin and cooperative *Routine HEENT Exam Head: Present normocephalic and atraumatic Eye: Present PERRL and normal accommodation ENT: Present mucous membranes moist, oropharynx clear and nares patent Comments: *Routine Neck Exam Neck: Present supple and full ROM Comments: Patient is able to turn his head from [id number] Routine Chest/Breast/Axilla Exam Comments: As noted I did not sit the patient up related to his abdomen. But the patient showed no chest wall tenderness and anterior side or had no complaint of pain *Routine Respiratory Exam Respiratory: Present CTA bilaterally, normal respiratory effort, able to speak in complete sentences and symmetric chest movement Comments: Lungs were clear with good equal expansion on both sides. *Routine Cardiovascular Exam Cardiovascular: Present RRR *Routine Abdominal Exam Abdominal: Present soft and normoactive bowel sounds; Absent tenderness or distended *Routine Rectal Exam Rectal:: deferred *Routine Genitalia Exam Genitalia:: deferred *Routine Extremities Exam Extremities: Present full ROM; Absent tenderness Routine Back/Spine/Pelvis Exam Comments: As noted patient has had a history of long-term pain before with injections to SI joint now presently rehabbing from hip replacement., Patient had no complaints of back pain. But did not stand or have the patient twist or bend. *Routine Skin Exam Skin: Present intact, dry and warm *Routine Neurological Exam Neurological: Present alert, oriented X3, CN II-XII intact, vision grossly intact, hearing grossly intact and normal speech Routine Psychiatric Exam Psychiatric: Present normal affect, normal thought process, cooperative, good insight and good judgment Comments: Absolutely remarkable that the gentleman's been through much but he is totally alert and oriented and appropriate during exam he is able to converse with his showing good recent memory. H&P: Result Impressions 1. Vomiting blood with history of bowel obstruction and stenosis of lower bowel. NG placed before NG large amount of bowel gas noted throughout the colon and small intestine with a reducible hernia 2. Recent hip fracture with repair. 3. Long history of urinary wall thickening also recent Klebsiella infection in the past. Presently having increased white count. Assessment and Plan *Assessment and plan (1) Syncope: Status: Acute Category: Medical Code(s): R55 - Syncope and collapse (2) JINNY (acute kidney injury): Status: Acute Category: Medical Code(s): N17.9 - Acute kidney failure, unspecified (3) Dehydration: Status: Acute Category: Medical Code(s): E86.0 - Dehydration (4) Frequent falls: Status: Acute Category: Medical Code(s): R29.6 - Repeated falls (5) Orthostatic hypotension: Status: Acute Category: Medical Code(s): I95.1 - Orthostatic hypotension (6) GERD (gastroesophageal reflux disease): Status: Acute Category: Medical Code(s): K21.9 - Gastro-esophageal reflux disease without esophagitis (7) BPH (benign prostatic hyperplasia): Status: Acute Category: Medical Code(s): N40.0 - Benign prostatic hyperplasia without lower urinary tract symptoms (8) Depression: Status: Acute Category: Medical Code(s): F32.A - Depression, unspecified Plan Mr. Adorno is a 84-year-old male admitted to the hospital after syncopal episode. He was found to have a JINNY and dehydration. Orthostatic's were positive. After discussion with the emergency room physician patient admitted for further management and IV hydration. PT consulted due to frequent falls in the home. #Syncope #JINNY #Dehydration #Frequent falls #Orthostatic hypotension ?Mr. Adorno is alert and oriented x 3. Answers all questions appropriately, denies any dizziness at this time. Patient does state that he feels weak, has had multiple falls, last fall was yesterday evening. Denies any injuries. He states that he has been working outside in the heat for multiple days in a row. ?Kidney function is decreased, BUN 51, creat 2.0. Fluid resuscitation ordered, LR at 125 mL/hour. Patient did receive 1 L fluid bolus in the ED. CK pending. ?Patient states he has been having increased weakness for approximately 2 weeks. PT consulted for further evaluation. Patient does live at home with his . ?Orthostatic hypotension noted. Cardiac monitoring ordered. ?CBC, BMP, lipid panel, magnesium ordered for a.m. ?Cards consulted due to extensive cardiac history. Echo in 10/18 showed EF 60%. ?Chest x-ray in the emergency room interpreted by myself, no acute findings. ?Per patient's MAR he takes 900 mg of gabapentin in the morning and 1200 mg in the evening. Reducing dose to 600 mg morning and evening, monitoring for poss drug toxicity. #GERD #Hypertension #BPH #Depression ?Continue home medication tamsulosin 0.4 mg daily, omeprazole 20 mg daily, gabapentin 900 mg daily, gabapentin 1200 mg at bedtime, finasteride 5 mg daily, duloxetine 60 mg twice daily, aspirin 81 mg daily. ?Hold lisinopril 10 mg due to hypotension. Full code Lovenox 30 mg subcu VTE Ambulate as tolerated Cardiac diet
--- NOTE | 2025-01-16 15:30 | HMH.PHAINT1 ---
Pharmacy Intervention Comments: MEDICATION RECONCILIATION COMPLETED ON PATIENT USING EXTERNAL FILL HISTORY FROM PHARMACY AND KELL REPORT. -LUCIA BAKER, MERLENED
--- NOTE | 2025-01-16 15:45 | PC.NURSE ---
called report to sabina truong and answered all questions
--- NOTE | 2025-01-16 16:07 | PC.NURSE ---
arrived by stretcher from ED
[2025-01-16] MEDS: LACTATED RINGERS 1000ML 1,000 ML 125 ML IV (16:15)
[2025-01-16 16:39] LABS: Troponin I < 0.01 ng/ml (0.00-0.034)
[2025-01-16 16:45] LABS: Creatine Kinase 74 U/L (55-170)
[2025-01-16 19:40] LABS: Troponin I < 0.01 ng/ml (0.00-0.034)
[2025-01-16] MEDS: GABAPENTIN 600MG TABLET 600 MG PO (20:46)
[2025-01-16] MEDS: PANTOPRAZOLE 40MG TABLET 40 MG PO (20:46)
[2025-01-16] MEDS: DULOXETINE 30MG CAPSULE.DR 60 MG PO (20:47)
[2025-01-17] VITALS: PULSE 70
[2025-01-17] MEDS: LACTATED RINGERS 1000ML 1,000 ML 100 ML IV (01:35)
--- NOTE | 2025-01-17 03:48 | PC.NURSE ---
Pt AOx4. Continually denies pain or any additional needs. Pt is receiving LR @100mL/hr through a 20g LAC. Pt had very good output earlier and denied the need to straight cath. Informed pt to let staff know if he started to feel like he needed it. Pt is currently resting in bed with eyes closed. Respirations even and unlabored. Bed is low, locked, and call light is in reach.
[2025-01-17 04:00] VITALS: BP 126/57; PULSE 70; PULSE 71; RESP 16; TEMP 36.4; O2SAT 96; BMI 20.5
[2025-01-17 06:28] LABS: Basophils % 0.4 % (0.1-2.0); Eosinophils # 0.2 Kmm3 (0.0-0.4); Eosinophils % 2.7 % (0.1-12.0); Hemoglobin 11.1 g/dL (14.1-18.0); Immature Granulocytes # 0.02 10^3uL; Immature Granulocytes % 0.3 %; Lymphocytes # 0.7 K/mm3 (0.7-4.5); Lymphocytes % 9.1 % (10-50); Mean Corpuscular HGB Conc 32.6 g/dL (31.8-35.4); Mean Corpuscular Hemoglobin 26.4 pg (27.0-31.2); Mean Platelet Volume 10.6 fl (7.4-10.4); Monocytes # 0.6 K/mm3 (0.1-1.0); Monocytes % 7.1 % (1.7-9.3); Neutrophils # 6.3 K/mm3 (1.8-7.8); Neutrophils % 80.4 % (37.0-80.0); Nucleated Red Blood Cells # 0 10^3/uL; Nucleated Red Blood Cells % 0 %; Platelet Count 171 K/mm3 (142-424); Red Cell Distribution Width 15.3 % (11.5-17.5); Red Cell Distribution Width-SD 45.1 fL; White Blood Count 7.8 K/mm3 (4.8-10.8)
[2025-01-17 06:49] LABS: Chloride 106 mmol/L (98-107); Potassium 4.6 mmoL/L (3.5-5.1); Sodium 138 mmol/L (136-145)
[2025-01-17 06:52] LABS: Anion Gap 10.6 mEq/L (5-15); Blood Urea Nitrogen 39 mg/dl (9-20); Calcium 8.5 mg/dl (8.4-10.2); Carbon Dioxide 26 mmol/L (22.0-30.0); Cholesterol 138 mg/dl (140-200); Creatinine Clearance Estimated 35 mL/min (50-200); Estimated Glomerular Filt Rate 52 ml/min (>60); GFR (African American) 63 ML/MIN (>60); Glucose 102 mg/dl (74-100); Triglycerides 153 mg/dl (30-150); VLDL Cholesterol 31 mg/dL (0-40)
[2025-01-17 06:53] LABS: Chol/HDL Ratio 4.9 (1-3.5); HDL Cholesterol 28 mg/dl (40-60); Magnesium 2.1 mg/dl (1.6-2.3)
[2025-01-17 07:04] LABS: Direct LDL Cholesterol 66.71 mg/dL (100-129)
[2025-01-17 07:42] VITALS: BP 131/59; PULSE 71; RESP 16; TEMP 36.7; O2SAT 96
[2025-01-17 08:00] VITALS: PULSE 70; O2SAT 93
[2025-01-17] MEDS: FINASTERIDE 5MG TABLET 5 MG PO (08:11)
[2025-01-17] MEDS: TAMSULOSIN 0.4MG CAPSULE 0.4 MG PO (08:11)
[2025-01-17] MEDS: GABAPENTIN 600MG TABLET 600 MG PO (08:12)
[2025-01-17] MEDS: DULOXETINE 30MG CAPSULE.DR 60 MG PO (08:12)
[2025-01-17] MEDS: ASPIRIN EC 81MG TABLET 81 MG PO (08:12)
[2025-01-17 08:28] VITALS: BP 119/61; BP 127/71; BP 129/65; PULSE 72; PULSE 75; PULSE 82
--- NOTE | 2025-01-17 08:42 | EXP.CARD.CON ---
History of Present Illness History of Present Illness Consult date: 01/17/25 Requesting physician: Cody Talley Consult reason: hypotension Chief complaint: syncope, hypotension Additional Medical History:: 1. 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 Chronic left bundle branch block 3. Hypertension 4. Hyperlipidemia 5. History of colon cancer 6. 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 History of fall with nondisplaced impacted right hip fracture, 09/2024 History of present illness: 84-year-old white male was admitted through the ER yesterday after a syncopal episode while at pain management yesterday. He was there to get a injection into his right hip due to fall with nondisplaced hip fracture 3 months ago that has been treated medically. In the ER patient's blood pressure note was noted to be in the 60-70 mmHg range systolic. 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 Overnight he is received approximately 1.5 L more than he has put out with significant improvement in his blood pressure. This morning his supine blood pressures in the low 120s and standing is 117 millimeters mercury range without symptoms. His home blood pressure medications have been held. Telemetry strip shows sinus rhythm with no arrhythmias. Hemoglobin is stable around 11 and creatinine was 2.0 on admission and now 1.3 this a.m. with BUN improving from 51 down to 39 today. Troponins are normal with EKG showing sinus rhythm with chronic left bundle branch block. [facility] Disclaimer: The information contained in this section may have been updated after the patient was seen, as this information can be updated by other users. Medical History (Updated 01/17/25 @ 08:56 by LUCÍA Pearce) Dehydration Gait disturbance Elevated white blood cell count Aspiration into airway Bowel obstruction Hematemesis UTI (urinary tract infection) Colon stricture Large bowel obstruction Hematuria History of gastroesophageal reflux (GERD) History of cataract Sarcoma Sarcoma Tremor Peripheral neuropathy Rectal stricture Chest pain Stroke Colon cancer Left hand paresthesia Left hand pain Chronic pain of right knee Stricture of sigmoid colon CVA (cerebrovascular accident) HTN (hypertension) Surgical History H/O hernia repair History of cataract surgery History of open heart surgery History of aortic valve replacement History of heart surgery History of cholecystectomy History of colon resection History of colonoscopy Family History (Updated 01/16/25 @ 15:55 by Shayy Hernandez RN) Heart attack Cancer Hypertension Stroke Social History (Updated 01/16/25 @ 15:56 by Shayy Hernandez, RN) Smoking Status: Never smoker second hand exposure: No alcohol intake: former substance use type: denies use current occupational status: retired Travel in the last 8 weeks?: None adopted: No caregiver/support person: Yes foster care: No household members: spouse housing: house lives independently: No marital status: 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 occupational exposures/hazards: No caffeine: Yes Have you lived/traveled outside US in past 30 days?: No Contact w/someone who lives/traveled outside US past 30 days?: No Exposure to someone with infectious disease in past 14 days?: No Do you have a fever (greater than 100.4 F or 38 C)?: No Have you tested positive for COVID-19?: No Exposed to someone with COVID-19 in past 14 days?: No Do you have a sore throat?: No Do you have a cough?: No Do you have any weakness?: No Do you have any diarrhea?: No Are you experiencing any unusual bleeding?: No Do you have any muscle aches/pain?: No Do you have any abdominal pain?: No Are you experiencing loss of taste or smell?: No Review of Systems Review of Systems Review of systems:: pertinent systems reviewed and negative unless documented below Constitutional Constitutional: Reports frequent falls and Reports weakness *Cardiovascular Cardiovascular: Denies chest pain and Denies dyspnea *Respiratory Respiratory: Denies dyspnea *Genitourinary Comments: self straight caths as needed *Neurologic Neurologic: Reports as per HPI, Reports frequent falls and Reports weakness Exam Data for Last 24 hours Vital signs and Labs for Last 24 Hours: Temp Pulse Resp BP Pulse Ox O2 Del Method 98.0 F 82 16 127/71 96 Room Air 01/17/25 07:42 01/17/25 08:28 01/17/25 07:42 01/17/25 08:28 01/17/25 07:42 01/17/25 07:42 Laboratory Results - last 24 hr 01/16/25 12:40: WBC 7.7, RBC 4.33 L, Hgb 11.0 L, Hct 36.1 L, MCV 83.4, MCH 25.4 L, MCHC 30.5 L, RDW 15.3, Plt Count 204, MPV 11.4 H, Neut % (Auto) 79.9, Lymph % (Auto) 9.5 L, [place] % (Auto) 7.7, Eos % (Auto) 2.2, Baso % (Auto) 0.4, Neut # (Auto) 6.1, Lymph # (Auto) 0.7, [place] # (Auto) 0.6, Eos # (Auto) 0.2, Baso # (Auto) 0.0, Sodium 141, Potassium 4.7, Chloride 105, Carbon Dioxide 26, Anion Gap 14.7, BUN 51 H, Creatinine 2.00 H, Estimated Creat Clear 23, Estimated GFR 32 L, Est GFR ( Amer) 39 L, Glucose 112 H, Calcium 9.1, Magnesium 2.4 H, Total Bilirubin 0.5, AST 25, ALT 13, Alkaline Phosphatase 172 H, Troponin I < 0.01, Total Protein 7.2 D, Albumin 3.8, Globulin 3.4 H, Albumin/Globulin Ratio 1.1, TSH 0.79, Thyroxine (T4) 6.0 01/16/25 15:59: Total Creatine Kinase 74, Troponin I < 0.01 01/16/25 18:53: Troponin I < 0.01 01/17/25 06:19: WBC 7.8, RBC 4.20 L, Hgb 11.1 L, Hct 34.0 L, MCV 81.0, MCH 26.4 L, MCHC 32.6, RDW 15.3, Plt Count 171, MPV 10.6 H, Neut % (Auto) 80.4 H, Lymph % (Auto) 9.1 L, [place] % (Auto) 7.1, Eos % (Auto) 2.7, Baso % (Auto) 0.4, Neut # (Auto) 6.3, Lymph # (Auto) 0.7, [place] # (Auto) 0.6, Eos # (Auto) 0.2, Baso # (Auto) 0.0, Sodium 138, Potassium 4.6, Chloride 106, Carbon Dioxide 26, Anion Gap 10.6, BUN 39 H, Creatinine 1.30 H D, Estimated Creat Clear 35, Estimated GFR 52 L, Est GFR ( Amer) 63 D, Glucose 102 H, Calcium 8.5, Magnesium 2.1 D, Triglycerides 153 H, Cholesterol 138 L, LDL Cholesterol Direct 66.71 L, VLDL Cholesterol 31, HDL Cholesterol 28 L, Cholesterol/HDL Ratio 4.9 H I & O for Last 24 hours: Intake & Output 01/14/25 01/15/25 01/16/25 01/17/25 11:59 11:59 11:59 11:59 Intake Total 2225 / 2225 Output Total 525 / 525 Balance 1700 / 1700 Weight 131 lb Constitutional Constitutional: no acute distress *Routine Respiratory Exam Respiratory: Present CTA bilaterally; Absent rhonchi or wheezes *Routine Cardiovascular Exam Cardiovascular: Present RRR and murmur; Absent gallop or rubs *Routine Extremities Exam Extremities: Absent edema *Routine Neurological Exam Neurological: Present alert and oriented X3 Meds Home Medications and Allergies Home Medications ?Medication ?Instructions ?Recorded ?Confirmed ?Type lisinopril 10 mg tablet 10 mg PO DAILY 02/20/20 01/16/25 History omeprazole magnesium 20 mg 20 mg PO DAILY 03/03/24 01/16/25 History tablet,delayed release duloxetine 60 mg capsule,delayed 60 mg PO BID #60 caps 08/26/24 01/16/25 Rx release finasteride 5 mg tablet 5 mg PO DAILY 30 days #30 tabs 10/07/24 01/16/25 Rx gabapentin 300 mg capsule 1,200 mg PO HS 01/16/25 01/16/25 History gabapentin 300 mg capsule 900 mg PO DAILY 01/16/25 01/16/25 History tamsulosin 0.4 mg capsule 0.4 mg PO DAILY 01/16/25 01/16/25 History New Prescriptions to Start Prescriptions: Allergies Allergy/AdvReac Type Severity Reaction Status Date / Time No Known Allergies Allergy Verified 01/05/25 10:10 Assessment and Plan *Assessment and plan (1) Orthostatic hypotension: Status: Acute Category: Medical Code(s): I95.1 - Orthostatic hypotension (2) JINNY (acute kidney injury): Status: Acute Category: Medical Code(s): N17.9 - Acute kidney failure, unspecified (3) Frequent falls: Status: Acute Category: Medical Code(s): R29.6 - Repeated falls (4) Dehydration: Status: Acute Category: Medical Code(s): E86.0 - Dehydration (5) Syncope: Status: Acute Qualifiers: Syncope type: unspecified Qualified Code(s): R55 - Syncope and collapse Category: Medical Code(s): R55 - Syncope and collapse (6) S/P TAVR (transcatheter aortic valve replacement): Status: Acute Category: Surgical Code(s): Z95.2 - Presence of prosthetic heart valve (7) History of left bundle branch block: Status: Acute Category: Medical Code(s): Z86.79 - Personal history of other diseases of the circulatory system Plan 1. Dehydration with JINNY resulting in Orthostatic hypotension with syncope -troponins normal -EKG with chronic LBBB without acute change -resolved with IVF and temporary holding of home BP meds -No arrhythmias noted on telemetry 2. History of TAVR with open heart surgery for repair of hole in heart -echo in 09/2024 showed normal Biventricular systolic function with AVR functioning appropriately. Mild MR with moderate TR and RVSP of 36 mmHg plus RA pressure 3. Hypertension - Transient hypotension due to dehydration 4. Hyperlipidemia -On statin therapy with LDL 66 this admission No plans for cardiac testing. Patient's symptoms and JINNY have significantly improved with IV fluids . Patient can be discharged home from a cardiac standpoint to follow-up with his regular content editor, Dr. Gomez. Recommend resuming aspirin 81 mg daily, lisinopril 10 mg daily and atorvastatin 20 mg daily. Continue to hold amlodipine unless blood pressure consistently 140/90 mmHg.
[2025-01-17] MEDS: ENOXAPARIN 40MG/0.4ML SYRINGE 40 MG SUBCUT (09:15)
--- NOTE | 2025-01-17 09:37 | HMH.PTEV ---
Physical Therapy Evaluation Rehab PT IP Evaluation Start: 01/16/25 15:42 Freq: ONCE Status: Active Protocol: Document 01/17/25 09:32 TEO (Rec: 01/17/25 09:36 TEO [id number]) Subjective/History History History Per H&P: Mr. Adorno is an 84-year-old male who presented to the emergency department after a syncopal episode in the pain management office. He has a history of degenerative arthritis, right hip fracture, peripheral or vascular disease, TAVR, aortic stenosis, BPH with urinary retention, colon cancer, CVA. In the ER he stated that he got dizzy, and lightheaded, and passed out. When he came to he stated that he has been having dizzy spells for about 2 weeks. He was found to be hypotensive, 70s/40s, and states that he has had multiple falls at home recently. Patient did deny chest pain, shortness of breath, nausea, vomiting, diarrhea. Workup in the emergency room revealed a JINNY, with a BUN of 51, creatinine of 2.00. Baseline creat 0.6 in September/2024. Due to the decreased kidney function and weakness, patient admitted for further monitoring. Subjective Subjective Pt reports he lives with his (can provide 16/02) and is IND with mobility using a RW. Pt reports his hx of falling is d/t BP dropping. Denying issues with his mobility besides OH. New diagnosis of No cancer in past 12 months? [facility] How much help from another person do you currently need... Turning from your None back to your side while in a flat bed without using bedrails? Moving from lying on None back to sitting on the side of a flat bed without using bedrails? Moving to and from a None bed to a chair ( including a wheelchair)? Standing up from a None chair using your arms? (e.g., wheelchair, bedside chair) Walking in hospital A little room? Climbing 3-5 steps A little with a railing? Mobility Score 22 Mobility Level Mull[place] Terry Mobility 7 Walk 25 feet or more Mobility Calculator Rehab PT IP Eval Objective Appearance Patient Behavior Appropriate,Cooperative Patient Orientation Person,Situation Difficulty following none instructions Speech Pattern Clear Ambulation Patient Able to Yes Ambulate Ambulation Observation IP General Gait No Deviations/Normal Pattern Observation Ambulation Distance 10 (feet) Ambulation Assistive Rolling Walker Device Ambulation Ability Supervision/Stand by Balance Ability to Arise Able, uses arms to help Sitting Balance Steady, safe Standing Balance Steady, wide stance Dynamic Sitting Good Balance Ability Dynamic Standing Good Balance Ability Transfers Bed Transfer Ability Supervision/Stand by Sit to Stand Bed Supervision/Stand by Transfer Ability Rehab PT IP prob,goals,plan Problems Date of Evaluation: 01/17/25 PT IP Problems Transfers,Gait,Balance Rehab Potential Rehab Potential Good Plan PT Intervention Plan Transfers,Gait,Balance,Safety Other Intervention 1-2 times Plan PT Plan Frequency Daily Duration LOS Discharge Goals Bed Transfer Ability Independent Sit to Stand Chair Independent Transfer Ability Discharge Plan PT Discharge Plan Pt most appropriate to d/c home with HH PT services. Pt able to demo good dynamic standing balance with RW. Pt would benefit from skilled acute care PT while at [facility] to address deficits and prevent further functional decline. Eval Complexity Eval Charge Codes 86582 - Moderate Complexity PHYSICIAN CERTIFICATION: I certify the specified therapy services for Francesco Adorno are required, authorized, and reviewed every 30 days.
--- NOTE | 2025-01-17 10:51 | SW/DCPLANNER ---
Spoke with patient once he is medically stable and ready for discharge in home health services. Patient stated that he is not interested in the services at this time. Rosie Solorzano
[2025-01-17 10:54] LABS: Microscopic, Urine URINE MICROSCOPIC (MICROSCOPIC)
[2025-01-17 11:13] LABS: Bilirubin,Urine Negative (Negative); Blood, Urine TRACE-I (Negative); Color,Urine YELLOW (Yellow); Glucose,Urine (UA) Negative (Negative); Ketones,Urine Negative (Negative); Leukocyte Esterase,Urine 2+ (Negative); Nitrate,Urine POSITIVE (Negative); PH,Urine 8.5 (5.0-8.5); Protein,Urine 2+ (Negative); Specific Gravity, Urine 1.015 (1.005-1.030); Urobilinogen,Urine 0.2 EU/dl (0.2)
[2025-01-17 11:21] LABS: Appearance,Urine Turbid (Clear)
[2025-01-17 11:22] LABS: Amorphous Sediment,Urine 2+ /lpf; Bacteria,Urine 3+ /lpf; Calcium Oxalate Crystals,Urine Trace /lpf; Mucus,Urine 1+ /lpf; RBC,Urine Occasional #/hpf (0-3); Squamous Epithelial Cell,Urine Occasional #/hpf (0-5)
[2025-01-17 12:00] VITALS: BP 114/61; PULSE 73; PULSE 80; RESP 16; TEMP 36.8; O2SAT 96
--- NOTE | 2025-01-17 12:42 | P.DS_ITS ---
<Statement entered by Cody Talley MD - 01/18/25 22:21> Evaluated by the patient and agree with plan of care as outlined by the DISABILITY COUNSELOR. General Admission date:: 01/16/25 Discharge date: 01/17/25 HPI HPI HPI: Mr. Adorno is an 84-year-old male who presented to the emergency department after a syncopal episode in the pain management office. He has a history of degenerative arthritis, right hip fracture, peripheral or vascular disease, TAVR, aortic stenosis, BPH with urinary retention, colon cancer, CVA. In the ER he stated that he got dizzy, and lightheaded, and passed out. When he came to he stated that he has been having dizzy spells for about 2 weeks. He was found to be hypotensive, 70s/40s, and states that he has had multiple falls at home recently. Patient did deny chest pain, shortness of breath, nausea, vomiting, diarrhea. Workup in the emergency room revealed a JINNY, with a BUN of 51, creatinine of 2.00. Baseline creat 0.6 in September/2024. Due to the decreased ki dney function and weakness, patient admitted for further monitoring. Hospital Course Hospital Course Hospital Course: Mr. Adorno is a 84-year-old male admitted to the hospital after syncopal episode. He was found to have a JINNY and dehydration. Orthostatic's were positive. After discussion with the emergency room physician patient admitted for further management and IV hydration. PT consulted due to frequent falls in the home. #Syncope #JINNY #Dehydration #Frequent falls #Orthostatic hypotension ?Mr. Adorno is alert and oriented x 3. Answers all questions appropriately, denies any dizziness at this time. Patient does state that he feels weak, has had multiple falls, last fall was yesterday evening. Denies any injuries. He states that he has been working outside in the heat for multiple days in a row. ? Patient did receive a 1 L bolus in the ED, and continuous 100 mL/hour fluid resuscitation during admission. ?Patient states he has been having increased weakness for approximately 2 weeks. PT consulted for further evaluation. Patient does live at home with his . PT recommends home health physical therapy, patient declines home health but is open to outpatient physical therapy. PT set up outpatient. ?Orthostatic hypotension noted. Cardiac monitoring ordered. Repeat orthostatics day of discharge within normal limits. ? No electrolyte abnormalities noted day of discharge, kidney function improved. BUN 39, creat 1.3. ?Cards consulted due to extensive cardiac history. Echo in 10/18 showed EF 60%. Cardiology recommends restarting aspirin 81 mg and atorvastatin 20 mg. Patient was previously prescribed his medications but had stopped taking them, discussed with patient the need to continue this medications. ?Chest x-ray in the emergency room interpreted by myself, no acute findings. ?Per patient's MAR he takes 900 mg of gabapentin in the morning and 1200 mg in the evening. Due to JINNY and potential for nephrotoxicity discussed with patient taking 900 mg of gabapentin in the morning and 900 mg of gabapentin in the evening. Did discuss with patient if this does not help with his pain/neuropathy that he should see Dr. Santos for further management. #GERD #Hypertension #BPH #Depression ?Continue home medication tamsulosin 0.4 mg daily, omeprazole 20 mg daily, finasteride 5 mg daily, duloxetine 60 mg twice daily, aspirin 81 mg daily, lisinopril 10 mg daily. #UTI ?Patient's urine appeared to be cloudy, turbid. Urinalysis shows urinary tract infection. Patient does intermittently In-N-Out cath for neurogenic bladder when he has not had good output. He follows with Dr. Castillo here at [facility], who has referred him to for further management of his neurogenic bladder. He did have a abdomen/pelvis CT that showed 13 mm bladder wall thickening, and a 10 mm bladder stone. Bladder wall thickening could be related to infection, or other etiology. Discussed with patient the need to follow-up with Dr. Castillo and when his appointment comes for further evaluation. ?Started patient on Levaquin to 250 mg daily x 10 days, renally dosed. Discussed with patient the need for follow-up outpatient for repeat UA. ?Urine culture pending. Total time spent on discharge 32 minutes in counseling, documentation, chart review, and direct care with patient. Exam Data for Last 24 hours Vital signs and Labs for Last 24 Hours: Temp Pulse Resp BP Pulse Ox O2 Del Method 98.2 F 73 16 114/61 96 Room Air 01/17/25 12:00 01/17/25 12:01/17/25 12:01/17/25 12:00 01/17/25 12:01/17/25 12:00 Laboratory Results - last 24 hr 01/16/25 12:40: WBC 7.7, RBC 4.33 L, Hgb 11.0 L, Hct 36.1 L, MCV 83.4, MCH 25.4 L, MCHC 30.5 L, RDW 15.3, Plt Count 204, MPV 11.4 H, Neut % (Auto) 79.9, Lymph % (Auto) 9.5 L, Rabun % (Auto) 7.7, Eos % (Auto) 2.2, Baso % (Auto) 0.4, Neut # (Auto) 6.1, Lymph # (Auto) 0.7, Rabun # (Auto) 0.6, Eos # (Auto) 0.2, Baso # (Auto) 0.0, Sodium 141, Potassium 4.7, Chloride 105, Carbon Dioxide 26, Anion Gap 14.7, BUN 51 H, Creatinine 2.00 H, Estimated Creat Clear 23, Estimated GFR 32 L, Est GFR ( Amer) 39 L, Glucose 112 H, Calcium 9.1, Magnesium 2.4 H, Total Bilirubin 0.5, AST 25, ALT 13, Alkaline Phosphatase 172 H, Troponin I < 0.01, Total Protein 7.2 D, Albumin 3.8, Globulin 3.4 H, Albumin/Globulin Ratio 1.1, TSH 0.79, Thyroxine (T4) 6.0 01/16/25 15:59: Total Creatine Kinase 74, Troponin I < 0.01 01/16/25 18:53: Troponin I < 0.01 01/17/25 06:19: WBC 7.8, RBC 4.20 L, Hgb 11.1 L, Hct 34.0 L, MCV 81.0, MCH 26.4 L, MCHC 32.6, RDW 15.3, Plt Count 171, MPV 10.6 H, Neut % (Auto) 80.4 H, Lymph % (Auto) 9.1 L, Rabun % (Auto) 7.1, Eos % (Auto) 2.7, Baso % (Auto) 0.4, Neut # (Auto) 6.3, Lymph # (Auto) 0.7, Rabun # (Auto) 0.6, Eos # (Auto) 0.2, Baso # (Auto) 0.0, Sodium 138, Potassium 4.6, Chloride 106, Carbon Dioxide 26, Anion Gap 10.6, BUN 39 H, Creatinine 1.30 H D, Estimated Creat Clear 35, Estimated GFR 52 L, Est GFR ( Amer) 63 D, Glucose 102 H, Calcium 8.5, Magnesium 2.1 D , Triglycerides 153 H, Cholesterol 138 L, LDL Cholesterol Direct 66.71 L, VLDL Cholesterol 31, HDL Cholesterol 28 L, Cholesterol/HDL Ratio 4.9 H 01/17/25 10:07: Urine Color Yellow, Urine Appearance Turbid, Urine pH 8.5, Ur Specific [place] 1.015, Urine Protein 2+ A, Urine Glucose (UA) Negative, Urine Ketones Negative, Urine Blood Trace-i, Urine Nitrate Positive A, Urine Bilirubin Negative, Urine Urobilinogen 0.2, Ur Leukocyte Esterase 2+ A, Urine RBC Occasional, Urine WBC 10-20, Ur Squamous Epith Cells Occasional, Calcium Oxalate Crystal Trace, Amorphous Sediment 2+, Urine Bacteria 3+, Urine Mucus 1+ I & O for Last 24 hours: Intake & Output 01/14/25 01/15/25 01/16/25 01/17/25 23:59 23:59 23:59 23:59 Intake Total 480 / 480 1745 / 1745 Output Total 1125 / 1125 Balance 480 / 480 620 / 620 Weight 57.697 kg 59.421 kg Constitutional Constitutional: no acute distress, thin and cooperative *Routine HEENT Exam Head: Present normocephalic Eye: Present EOMI and PERRL ENT: Present mucous membranes moist *Routine Neck Exam Neck: Present supple and full ROM; Absent lymphadenopathy *Routine Respiratory Exam Respiratory: Present CTA bilaterally, able to speak in complete sentences and symmetric chest movement *Routine Cardiovascular Exam Cardiovascular: Present RRR *Routine Abdominal Exam Abdominal: Present soft and normoactive bowel sounds; Absent tenderness or distended *Routine Extremities Exam Extremities: Absent cyanosis or clubbing *Routine Skin Exam Skin: Present intact and warm; Absent rash *Routine Neurological Exam Neurological: Present alert and oriented X3 Results Data Completed and Pending Labs on day of discharge: Labs from last 24 hours 01/17/25 01/17/25 01/16/25 10:07 06:19 18:53 WBC 7.8 RBC 4.20 L Hgb 11.1 L Hct 34.0 L MCV 81.0 MCH 26.4 L MCHC 32.6 RDW 15.3 Plt Count 171 MPV 10.6 H Neut % (Auto) 80.4 H Lymph % (Auto) 9.1 L Rabun % (Auto) 7.1 Eos % (Auto) 2.7 Baso % (Auto) 0.4 Neut # (Auto) 6.3 Lymph # (Auto) 0.7 Rabun # (Auto) 0.6 Eos # (Auto) 0.2 Baso # (Auto) 0.0 Sodium 138 Potassium 4.6 Chloride 106 Carbon Dioxide 26 Anion Gap 10.6 BUN 39 H Creatinine 1.30 H D Estimated Creat Clear 35 Estimated GFR 52 L Est GFR ( Amer) 63 D Glucose 102 H Calcium 8.5 Magnesium 2.1 D Total Bilirubin AST ALT Alkaline Phosphatase Total Creatine Kinase Troponin I < 0.01 Total Protein Albumin Globulin Albumin/Globulin Ratio Triglycerides 153 H Cholesterol 138 L LDL Cholesterol Direct 66.71 L VLDL Cholesterol 31 HDL Cholesterol 28 L Cholesterol/HDL Ratio 4.9 H TSH Thyroxine (T4) Urine Color Yellow Urine Appearance Turbid Urine pH 8.5 Ur Specific [place] 1.015 Urine Protein 2+ A Urine Glucose (UA) Negative Urine Ketones Negative Urine Blood Trace-i Urine Nitrate Positive A Urine Bilirubin Negative Urine Urobilinogen 0.2 Ur Leukocyte Esterase 2+ A Urine RBC Occasional Urine WBC 10-20 Ur Squamous Epith Cells Occasional Calcium Oxalate Crystal Trace Amorphous Sediment 2+ Urine Bacteria 3+ Urine Mucus 1+ 01/16/25 01/16/25 15:59 12:40 WBC 7.7 RBC 4.33 L Hgb 11.0 L Hct 36.1 L MCV 83.4 MCH 25.4 L MCHC 30.5 L RDW 15.3 Plt Count 204 MPV 11.4 H Neut % (Auto) 79.9 Lymph % (Auto) 9.5 L Rabun % (Auto) 7.7 Eos % (Auto) 2.2 Baso % (Auto) 0.4 Neut # (Auto) 6.1 Lymph # (Auto) 0.7 Rabun # (Auto) 0.6 Eos # (Auto) 0.2 Baso # (Auto) 0.0 Sodium 141 Potassium 4.7 Chloride 105 Carbon Dioxide 26 Anion Gap 14.7 BUN 51 H Creatinine 2.00 H Estimated Creat Clear 23 Estimated GFR 32 L Est GFR ( Amer) 39 L Glucose 112 H Calcium 9.1 Magnesium 2.4 H Total Bilirubin 0.5 AST 25 ALT 13 Alkaline Phosphatase 172 H Total Creatine Kinase 74 Troponin I < 0.01 < 0.01 Total Protein 7.2 D Albumin 3.8 Globulin 3.4 H Albumin/Globulin Ratio 1.1 Triglycerides Cholesterol LDL Cholesterol Direct VLDL Cholesterol HDL Cholesterol Cholesterol/HDL Ratio TSH 0.79 Thyroxine (T4) 6.0 Urine Color Urine Appearance Urine pH Ur Specific [place] Urine Protein Urine Glucose (UA) Urine Ketones Urine Blood Urine Nitrate Urine Bilirubin Urine Urobilinogen Ur Leukocyte Esterase Urine RBC Urine WBC Ur Squamous Epith Cells Calcium Oxalate Crystal Amorphous Sediment Urine Bacteria Urine Mucus DS: Diagnosis Discharge Diagnosis (1) Orthostatic hypotension: Status: Acute Code(s): I95.1 - Orthostatic hypotension (2) JINNY (acute kidney injury): Status: Acute Code(s): N17.9 - Acute kidney failure, unspecified (3) Frequent falls: Status: Acute Code(s): R29.6 - Repeated falls (4) Dehydration: Status: Acute Code(s): E86.0 - Dehydration (5) Syncope: Status: Acute Code(s): R55 - Syncope and collapse Qualifiers: Syncope type: unspecified Qualified Code(s): R55 - Syncope and collapse (6) S/P TAVR (transcatheter aortic valve replacement): Status: Acute Code(s): Z95.2 - Presence of prosthetic heart valve (7) History of left bundle branch block: Status: Acute Code(s): Z86.79 - Personal history of other diseases of the circulatory system Meds Home Medications and Allergies Home Medications ?Medication ?Instructions ?Recorded ?Confirmed ?Type lisinopril 10 mg tablet 10 mg PO DAILY 02/20/2012/26 History omeprazole magnesium 20 mg 20 mg PO DAILY 03/03/24 History tablet,delayed release duloxetine 60 mg capsule,delayed 60 mg PO BID #60 caps 08/26/24 01/16/25 Rx release finasteride 5 mg tablet 5 mg PO DAILY 30 days #30 ta bs 10/07/24 01/16/25 Rx gabapentin 300 mg capsule 900 mg PO DAILY 01/16/25 History tamsulosin 0.4 mg capsule 0.4 mg PO DAILY 01/16/25 History aspirin 81 mg capsule 81 mg PO DAILY #30 caps 12/26 11/18 Rx atorvastatin 20 mg tablet (Lipitor) 20 mg PO DAILY #30 tabs 01/17/25 Rx gabapentin 300 mg capsule 900 mg (3 x 300 mg) PO HS 30 days 01/17/25 01/16/25 Rx #0 caps levofloxacin 250 mg tablet 250 mg PO DAILY #10 tabs Rx New Prescriptions to Start Prescriptions: aspirin Carlotta Dodson atorvastatin [Lipitor] Carlotta Dodson levofloxacin Carlotta Dodson Allergies Allergy/AdvReac Type Severity Reaction Status Date / Time No Known Allergies Allergy Verified 01/05/25 10:10 Discharge Plan Disposition Patient Disposition: Home, Self-Care Condition: Fair Follow up Plan Follow up with: Beltran Batista MD [Primary Care Provider, Medical] - 01/24/25 11:00 am Cody Castillo MD [Staff Physician, Urology] - 01/23/25 9:30 am Prescriptions/Medication Reconciliation: New aspirin 81 mg capsule 81 mg PO DAILY Qty: 30 3RF levofloxacin 250 mg tablet 250 mg PO DAILY Qty: 10 0RF atorvastatin [Lipitor] 20 mg tablet 20 mg PO DAILY Qty: 30 0RF Continued lisinopril 10 mg tablet 10 mg PO DAILY duloxetine 60 mg capsule,delayed release(DR/EC) 60 mg PO BID Qty: 60 5RF omeprazole magnesium 20 mg tablet,delayed release (DR/EC) 20 mg PO DAILY finasteride 5 mg tablet 5 mg PO DAILY 30 Days Qty: 30 0RF tamsulosin 0.4 mg capsule 0.4 mg PO DAILY Patient Comments: TAKE ONE CAPSULE BY MOUTH ONCE A DAY gabapentin 300 mg capsule 900 mg PO DAILY Changed gabapentin 300 mg capsule 900 mg PO HS 30 Days Qty: 0 0RF Other Ambulatory Orders: Rehab Eval, OP (Routine) Timeframe: 1 Month Facility: [facility] - Location: Physical Therapy Ordered By: Carlotta Dodson Problem Reconciliation Problems Reviewed?: Yes Patient Discharge Instructions ACTIVITY: Continue current activity DIET: continue same diet Patient Instructions: Fainting, DI for Kidney Failure, Acute Kidney Injury Print Language: Sami Providers Primary Care Provider: Beltran Batista Admit Provider: Cody Talley Attending Provider: Cody Talley
--- NOTE | 2025-01-17 13:55 | SW/DCPLANNER ---
Patient prefers outpatient PT: MD will send orders and Senior Software Systems Engineer will schedule appointment.
--- NOTE | 2025-01-18 10:04 | SW/DCPLANNER ---
Spoke with patient's on the phone. Patient's stated that he is doing farely well and at the moment he is nauseous. Patient's stated that he is aware of his upcoming appointments. [facility] stated [facility] to his room. Patient's stated that they have no concerns or questions at this time. Rosie Solorzano
== END 2025-01-17 14:11 | disposition home or self-care (01) ==
LOC: ER 13:22 → 2ND 15:42
PROVIDERS: Admitting Provider Student in an Organized Health Care Education/Training Program; Emergency Provider Student in an Organized Health Care Education/Training Program; PCP Family Medicine; Visit Provider Student in an Organized Health Care Education/Training Program
DX: I95.1 Orthostatic hypotension (principal); N17.9 Acute kidney failure, unspecified; E86.0 Dehydration; R53.81 Other malaise; K21.9 Gastro-esophageal reflux disease without esophagitis; I10 Essential (primary) hypertension; N40.0 Benign prostatic hyperplasia without lower urinary tract symptoms; F32.A Depression, unspecified; N39.0 Urinary tract infection, site not specified; I44.7 Left bundle-branch block, unspecified; E78.5 Hyperlipidemia, unspecified; N31.9 Neuromuscular dysfunction of bladder, unspecified; N21.0 Calculus in bladder; M19.90 Unspecified osteoarthritis, unspecified site; I73.9 Peripheral vascular disease, unspecified; Z95.2 Presence of prosthetic heart valve; Z91.81 History of falling; Z85.038 Personal history of other malignant neoplasm of large intestine; Z87.81 Personal history of (healed) traumatic fracture; Z86.73 Personal history of transient ischemic attack (TIA), and cerebral infarction without residual deficits; Z86.79 Personal history of other diseases of the circulatory system; Z79.02 Long term (current) use of antithrombotics/antiplatelets; Z79.899 Other long term (current) drug therapy; Z82.3 Family history of stroke; Z82.49 Family history of ischemic heart disease and other diseases of the circulatory system; Z80.8 Family history of malignant neoplasm of other organs or systems
CPT/HCPCS: 96360; 96361; 36415; 71045; 71275; 74174; 80048; 80053; 80061; 81001; 82550; 83735; 84436; 84443; 84484; 85025; 87086; 87088; 87186; 93005; 97162; G0378; J1650; J7120; Q9967

== ENCOUNTER 2025-02-07 11:12 | Day surgery (SDC) | payer MEDICARE, SELFPAY ==
[2025-02-07 11:16] VITALS: BP 132/66; PULSE 87; RESP 18; O2SAT 96; BMI 20.3
[2025-02-07] MEDS: IOPAMIDOL-200 (41%);10ML VIAL 10 ML IV (11:34)
[2025-02-07] MEDS: BUPIVACAINE 0.25% 10ML INJ 25 MG IJ (11:37)
[2025-02-07] MEDS: LIDOCAINE 1% 5ML PF VIAL 5 ML (11:37)
[2025-02-07] MEDS: DEXAMETHASONE 10MG/ML 1ML VIAL 10 MG (11:37)
[2025-02-07 11:38] VITALS: BP 146/59; PULSE 82; PULSE 85; RESP 18; O2SAT 97; O2SAT 98
--- NOTE | 2025-02-07 11:44 | EXP.PAIN.PRO ---
Procedure Date: 02/07/25 Time: 11:35 Anesthesiologist:: Darell James CRNA Complications:: None Pre-procedure Diagnosis:: Left piriformis syndrome Post-procedure Diagnosis:: Same Indications for Procedure:: Patient is a pleasant 84-year-old male who comes our clinic today for left piriformis injection of local anesthetic and cortisone. He describes low lumbar back pain off the midline to the left. Left buttock pain. Left posterior hip pain. Difficulty ambulating. He rates his pain 7/10. Procedure Details:: Details of the procedure explained to the patient. The patient was taken to the procedure room placed in the prone position on fluoroscopy table. The area over the left buttock was cleaned using chlorhexidine as a cleansing solution. Using a 22-gauge 3 and half inch spinal needle the left piriformis muscle was accessed with ease using fluoroscopy guidance. Needle position was confirmed using contrast dye 0.5 cc and a lateral spread. After negative aspiration 3 cc of 1% lidocaine +3 cc 0.25% Marcaine and 10 mg of dexamethasone was injected incrementally. Patient tolerated procedure without difficulty. There are no complications. Plan and Disposition:: Patient was discharged without incident.
[2025-02-07 11:45] VITALS: BP 139/77; PULSE 75; RESP 18; O2SAT 97
== END 2025-02-07 11:45 | disposition home or self-care (01) ==
PROVIDERS: PCP Family Medicine; Visit Provider Nurse Anesthetist, Certified Registered
DX: G57.02 Lesion of sciatic nerve, left lower limb (principal); Z86.73 Personal history of transient ischemic attack (TIA), and cerebral infarction without residual deficits; K21.9 Gastro-esophageal reflux disease without esophagitis; I10 Essential (primary) hypertension; G62.9 Polyneuropathy, unspecified; Z85.89 Personal history of malignant neoplasm of other organs and systems; Z79.899 Other long term (current) drug therapy
CPT/HCPCS: 20552; 77002; J0665; J1100; J2003; Q9966

== ENCOUNTER 2025-02-10 10:09 | Day surgery (SDC) | payer MEDICARE, SELFPAY ==
[2025-02-07 16:26] VITALS: BMI 20.3
--- NOTE | 2025-02-10 10:31 | P.PCN_ITS ---
[facility] Procedure Note Date: 02/10/25 Time: 10:31 Procedure Note:: Chart review: Patient is in urinary retention and on intermittent catheterization program every six hours. His catheterization program has been going well except this morning he had some dysuria and said his urine was cloudy looking at the end of the drainage. He has been on Proscar and Flomax. He is going to see the [facility] urology in March to consider prostate surgery. He has a 10 mm bladder stone. Renal ultrasound and KUB otherwise was unremarkable 09/20 except a right renal cyst. I will set up a urine culture and sensitivity. Performing cystoscopy to see if the patient could benefit with UroLift or laser prostate surgery. The patient should also be considered for decompensated urinary bladder. Urine C/S is Proteus fairly resistant. I will chose cefdinir as he is having symptoms. I would like as much as possible avoid use of antibiotics trying to be a good antibiotic rich. Pre-Op Dx: Urine retention/UTI/Bladder Stone Post-Op Dx: Urine retention/UTI/Bladder Stone Op Note: The patient is brought to the cystoscopy suite. He was prepped and draped in the usual fashion. He underwent flexible cystoscopy. The anterior urethra was unremarkable. From the level of the verumontanum the patient has a short prostatic urethra. He has grade 1 tumor obstruction of some tissue at the bladder neck but does not have a high-grade obstruction. This gives me concerned that the patient's voiding dysfunction very well may be neurogenic and myogenic in nature from a decompensated bladder. He has heavy trabeculation and had a small pocket there is a bladder stone as noted that 7 mm. I see no evidence of bladder stone tumor hemorrhage or infection otherwise. I have placed the patient on Cefdiir for a short 5 day duration.
[2025-02-10 10:36] VITALS: BP 152/84; PULSE 74; RESP 18; TEMP 36.3; O2SAT 96
[2025-02-10] MEDS: LIDOCAINE 2% UROJET 10ML 10 ML (10:51)
[2025-02-10] MEDS: 0.9 % SODIUM CHLORIDE 500 ML 25 ML IV (10:51)
[2025-02-10 11:01] VITALS: BP 146/77; PULSE 67; RESP 16; TEMP 36.4; O2SAT 97
== END 2025-02-10 11:13 | disposition home or self-care (01) ==
PROVIDERS: PCP Family Medicine; Visit Provider Urology
PROC: 0TJB8ZZ Inspection of Bladder, Via Natural or Artificial Opening Endoscopic (ICD-10-PCS; CPT 52000; principal; 2025-02-10 10:15)
DX: N39.0 Urinary tract infection, site not specified (principal); N21.0 Calculus in bladder; N36.8 Other specified disorders of urethra; N32.0 Bladder-neck obstruction; D49.4 Neoplasm of unspecified behavior of bladder; I10 Essential (primary) hypertension; G62.9 Polyneuropathy, unspecified; Z85.038 Personal history of other malignant neoplasm of large intestine; Z85.89 Personal history of malignant neoplasm of other organs and systems; Z86.73 Personal history of transient ischemic attack (TIA), and cerebral infarction without residual deficits; Z90.49 Acquired absence of other specified parts of digestive tract; Z80.9 Family history of malignant neoplasm, unspecified; Z79.899 Other long term (current) drug therapy
CPT/HCPCS: 52000; J7040

== ENCOUNTER 2025-02-22 10:38 | Outpatient (POV) | payer MEDICARE, SELFPAY ==
--- OUTSIDE RECORDS SUMMARY | 2018-07-15 07:46 | XMS_ITS | Continuity of Care Document ---
Author Name [facility] Organization [facility] Care Team Providers Care Back Office Medical Assistant Name Role Phone [facility] Unavailable Unavailable Problems Combined list of problems from Department of [facility] and [facility] facilities. It does not include entries that were removed or entered in error. Problem Status Onset Date Problem Type Date of Resolution Comments Source Benign hypertension Active Condition [facility] BPH - Benign prostatic hypertrophy Active Condition [facility] Carcinoma of colon Active Condition N 2015 Entered By: MELISSA AGUILLON Comment: HX OF COLON RESECTION [facility] Hyperlipidemia Active Condition [place] [facility] Medications Combined list of outpatient medications from Department of [facility] and [facility] facilities.Medications provided include 1) outpatient medications from the last 15 months, and 2) patient-reported medications. Medication Details Route Status Patient Instructions Prescription Expires Prescription Number Last Dispense Date Ordering Provider Order Date Order Qty Source ATORVASTATI N CA 40MG TAB TAKE ONE-HALF TABLET BY MOUTH DAILY ORAL ACTIVE MIRACLE CARSON IN 2017 [place] [facility] FISH OIL 1000MG (500MG DHA/EPA) CAP,ORAL TAKE 2 CAPSULES BY MOUTH DAILY ORAL ACTIVE KAMARI AGUILLON 2015 [place] [facility] LISINOPRIL 20MG TAB TAKE ONE-HALF TABLET BY MOUTH TWICE A DAY ORAL ACTIVE MIRACLE CARSON IN C 2017 [place] [facility] METOPROLOL SUCCINATE 25MG TAB,SA TAKE ONE-HALF TABLET BY MOUTH DAILY ORAL ACTIVE MIRACLE CARSON IN 2017 [place] [facility] Immunizations Combined list of available immunizations from the Department of [facility] and [facility] facilities. Immunization Series Date Given Administered By Site Reaction Lot Number CVX Code Drug Seamer Operator Status Comments Source TDAP (HISTORICAL) 2013 115 complet ed [place] [facility] Social History Combined list of available smoking, tobacco, and other social history from Department of Defense and Veterans Affairs facilities. Social History Type Response Date Comment [facility] e Tobacco smoking status [facility] VA-TOBACCO NEVER USED 07/15/2018 [facility] History of tobacco use V9 LIFETIME NON-USER OF TOBACCO 06/26/2017 [facility] History of tobacco use V9 LIFETIME NON-USER OF TOBACCO 06/05/2016 [facility] History of tobacco use V9 LIFETIME NON-USER OF TOBACCO 05/30/2015 [facility]
--- OUTSIDE RECORDS SUMMARY | 2025-02-06 09:25 | XMS_ITS | Encounter Summary ---
Author Organization Healthcare Address [address] [place] [address] Care Team Providers Care Poultry Picker Name Role Phone Robert Batista MD Primary Care Provider [phone] Encounter Details Date Type Department Care Team (Latest Contact Info) Description 02/06/2025 9:25 AM EDT - 02/06/2025 11:59 PM EDT Hospital Encounter [facility] [address] [place] [address] Soft tissue sarcoma (CMS/HCC) Discharge Disposition: Home [...] Date Recorded Patient Health Questionnaire-2 Score 0 02/06/2025 Hunger Vital Sign Answer Date Recorded Within [...] drink first t ember in the morning (EYE-CLOCK AND WATCH HANDS DIPPER) to steady your nerves or to get [...] pleasure in doing things Not at all 02/06/2025 10:49 AM EDT Kayla Mazariegos Feeling down, depressed, or hopeless Not at all 02/06/2025 10:49 AM EDT Kayla Mazariegos Patient Health Questionnaire -2 Score 0 02/06/2025 10:49 AM EDT Kayla Mazariegos * Question Answer Date of Assessment Author Thoughts that you would be better off or hurting yourself in some way Not at all 02/06/2025 10:49 AM EDT Angelique Mazariegos documented as of this encounter Medications at [...] mouth 2 (two) times a day. 02/02/2023 finasteride (Proscar) 5 MG tablet Take 1 tablet by mouth daily. 11/09/2024 gabapentin (Neurontin) 300 MG capsule 900mg in [...] Care Team (Late st Contact Info) Description 04/21/2025 8:30 AM EDT Consult [facility] [address] [place] [address] NoDiana long M, POOL SERVICER [address] [place] [address] 08/07/2025 9:00 AM EST Appointment [facility] [address] [place] [address] 08/07/2025 10:45 AM EST Office Visit [facility] [address] [place] [address] Darell Turcios MD [address] [place] [address] documented as of this encounter Goals Goal Patient Goal Type Associated Problems Recent Progress Patient-Stated? Author OT Goal: Pt to be educated on HEP to improve AROM by 1 visit. Occupational Therapy No Ceci Jacobo, OT documented as of this encounter Procedures Procedure Name Priority Date/Time Associated Diagnosis Comments XR CHEST 2 VIEWS Routine 02/06/2025 10:3 1 AM EDT Soft tissue sarcoma (CMS/HCC) documented in this encounter Results * XR Chest 2 Views (02/06/2025 10:31 AM EDT) Anatomical Region Laterality Modality Chest Digital Radiogra phy Impressions 02/06/2025 1:02 PM EDT No acute findings. CRITICAL RESULT: No. COMMUNICATION: Per this written report. By electronically signing this report, I, the attending physician, attest that I have personally reviewed the images/data for the above examination(s) and agree with the final edited report. Drafted by Marques Guerrero on 02/06/2025 10:45 AM Final report signed by Jairo Schilling MD on 02/06/2025 1:02 PM Narrative 02/06/2025 1:02 PM EDT CLINICAL INDICATION: sarcoma TECHNIQUE: XR CHEST 2 VIEWS COMPARISON: November 07, 2024 FINDINGS: Stable cardiomediastinal contours intact sternotomy wires. No pneumothorax, focal consolidations, or pleural effusions. Procedure Note Jairo Schilling MD - 02/06/2025 CLINICAL INDICATION: sarcoma TECHNIQUE: XR CHEST 2 VIEWS COMPARISON: November 07, 2024 FINDINGS: Stable cardiomediastinal contours intact sternotomy wires. Nopneumothorax, focal consolidations, or pleural effusions. IMPRESSION: No acute findings. CRITICAL RESULT: No. COMMUNICATION: Per this written report. By electronically signing this report, I, the attending physician, abelat I have personally reviewed the images/data for the aboveexamination(s) and agree with the final edited report. 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
--- OUTSIDE RECORDS SUMMARY | 2025-02-06 10:45 | XMS_ITS | Encounter Summary ---
Author Organization [facility] Address [address] [id number] Care Team Providers Care Gear Machine Operator General Name Role Phone Robert Batista MD Primary Care Provider [phone] Reason for Visit * Reason Comments Follow-up Soft tissue sarcoma Encounter Details Date Type Department Care Team (Latest Contact Info) Description 02/06/2025 10:45 AM EDT Office Visit [facility] Multidisciplinary Oncology Clinic [address] [place] [address] Darell Turcios MD [address] [facility] [address] [place] [address] Mass of soft tissue of pelvis (Primary Dx) Social History Tobacco Use Types [...] any time in the past 12 m [facility], were you homeless or living in a intermediate (including now)? No 08/19/2024 CAGE ASSESSMENT Answer [...] drink first t ember in the morning (EYE-ADAPTIVE PHYSICAL EDUCATION TEACHER) to steady your nerves or to get [...] Sign Reading Time Taken Comments Blood Pressure 151/74 02/06/2025 10:45 AM EDT Pulse 75 02/06/2025 10:45 AM EDT Temperature - - Respiratory Rate 16 02/06/2025 10:45 AM EDT Oxygen Saturation 96% 02/06/2025 10:45 AM EDT Inhaled Oxygen Concentration - - Weight 54.9 kg (121 lb 0.5 oz) 02/06/2025 10:45 AM EDT Height 167.6 cm (5' 6 ) 02/06/2025 10:45 AM EDT Body Mass Index 19.54 02/06/2025 10:45 AM EDT documented in this encounter Functional Status * [...] Angelique Mazariegos documented as of this encounter Miscellaneous Notes * Progress Notes - Manjit Gillis PA - 02/06/2025 10:45 AM EDT This is a 84 y.o. 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 He also had an IMN s/p right femur fracture 09/2024 at outside hospital. He is doing well, no new lumps or masses to the right buttock. He is ambulating with a cane today because he strained his lower back lifting a mattress but he otherwise walks well. Medical History: Past Medical History[1] Surgical History: Surgical History[2] Social History: Social History[3] Physical Examination: Vitals: 02/06/25 1045 BP: (!) 151/74 Pulse: 75 Resp: 16 SpO2: 96% PE: General: Alert and oriented and in [...] 5 out of 5, full hip rom Imaging: chest xray shows no pulm mets per my read, will contact pt if any concerns on radiology report Path: undifferentiated pleomorphic sarcoma Assessment: This is a 84 y.o. 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 Plan: continue surveillance follow up every 6 months for the next 3 years. He will continue doing daily skin checks [1] Past Medical History: Diagnosis Date Acute headache Hyperlipidemia Hypertension Personal history of other diseases of male genital organs History of erectile dysfunction Personal history of other diseases of the circulatory system History of aortic valve disorder Personal history of other diseases of the circulatory system History of hypertension Personal history of other endocrine, nutritional and metabolic disease History of hyperlipidemia Personal history of other endocrine, nutritional and metabolic disease History of hypothyroidism Stroke (CMS/HCC) [2] Past Surgical History: Procedure Laterality Date CARDIAC VALVE REPLACEMENT turned into open heart surgery CHOLECYSTECTOMY N/A Cholecystectomy from Cube Route COLON SURGERY 1997 HERNIA REPAIR N/A Inguinal Hernia Repair from Cube Route HIP FRACTURE SURGERY 10/02/2024 OTHER SURGICAL HISTORY N/A Exploratory Laparotomy from Cube Route [3] Social History Socioeconomic History Marital status: Tobacco Use Smoking status: Never Smokeless tobacco: Former Vaping Use Vaping status: Never Used Substance and Sexual Activity Alcohol use: Never Drug use: Never Sexual activity: Defer Other Topics Concern Occupational Exposure No Social Drivers of Health Food Insecurity: No Food Insecurity (08/19/2024) Hunger Vital Sign Worried About Running Out of Food in the Last Year: Never true Ran Out of Food in the Last Year: Never true Transportation Needs: No Transportation Needs (08/19/2024) PRAPARE - Transportation Lack of Transportation (Medical): No Lack of Transportation (Non-Medical): No Received from [employer] ([place], [place], [place], [place]) Family and Community Support Intimate Partner Violence: Not At Risk (08/19/2024) Humiliation, Afraid, Rape, and Kick questionnaire Fear of Current or Ex-Partner: No Emotionally Abused: No Physically Abused: No Sexually Abused: No Housing Stability: Low Risk (08/19/2024) Housing Stability Vital Sign Unable to Pay for Housing in the Last Year: No Number of Times Moved in the Last Year: 0 Homeless in the Last Year: No Cosigned by Darell Turcios MD at 02/06/2025 11:18 AM EDT Associated attestation - Darell Turcios MD - 02/06/2025 11:18 AM EDT The patient was seen only by Advanced Practice Provider (ISABEL), and care was reviewed with me. documented in this encounter Plan of Treatment Upcoming Encounters Date Type Department Care Team (Late st Contact Info) Description 04/21/2025 8:30 AM EDT Consult [facility] Urology [address], [address] [place] [address] NoDiana long M, CONTROL SYSTEMS ENG [address] [facility] [address] [place] [address] 08/07/2025 9:00 AM EST Appointment [facility] [address] [place] [phone] 08/07/2025 10:45 AM EST Office Visit [facility] [address] [place] [address] Darell Turcios MD [address] [place] [phone] Scheduled Orders Name Type Priority Associated Diagnoses Orde r Schedule XR Chest 2 Views Imaging Routine Mass of soft tissue of pelvis Expected: 08/09/2025 (Approximate), Expires: 08/10/2026 documented as of this encounter Goals Goal Patient Goal Type Associated Problems Recent Progress Patient-Stated? Author OT Goal: Pt to be educated on HEP to improve AROM by 1 visit. Occupational Therapy No Ceci Jacobo, OT documented as of this encounter Visit Diagnoses Diagnosis Mass of soft tissue of pelvis- Primary documented in this encounter Additional Health Concerns Assessment Noted Time PHQ-9 Depression Total Score: 0 11/08/19 25 11:16 AM EDT A fall risk assessment has been complete d for the patient 02/06/2025 10:49 AM EDT A Body Mass Index follow-up plan has been documented for the patient 02/06/2025 11:18 AM EDT documented as of this encounter Care Teams Gear Machine Operator General Relationship Specialty Start Date End Date Robert Batista MD [address] [place] [address] [address]1 [place] Lem[place] [address] PCP - General 12/07/20 documented as of this encounter
--- OUTSIDE RECORDS SUMMARY | 2025-02-22 10:39 | XMS_ITS ---
Author Name Auto Generated, Auto Generated Organization [facility] Address [address] [place] [phone] Phone [phone] Care Team Providers Care Cyber Engineer Name Role Phone Leo Osullivan Unavailable [phone] Functional Status No Results Mental Status No [...]
--- NOTE | 2025-02-22 10:41 | EXP.PAIN.SOA ---
[facility] Disclaimer: The information contained in this section may have been updated after the patient was seen, as this information can be updated by other users. Medical History (Updated 02/22/25 @ 11:02 by Naomie Murphy APRN) Dehydration Gait disturbance Elevated white blood cell count Aspiration into airway Bowel obstruction Hematemesis UTI (urinary tract infection) Colon stricture Large bowel obstruction Hematuria History of gastroesophageal reflux (GERD) History of cataract Sarcoma Sarcoma Tremor Peripheral neuropathy Rectal stricture Chest pain Stroke Colon cancer Left hand paresthesia Left hand pain Chronic pain of right knee Stricture of sigmoid colon CVA (cerebrovascular accident) HTN (hypertension) Surgical History (Updated 02/21/25 @ 12:51 by Loraine Santos MD) History of hip surgery H/O hernia repair History of cataract surgery History of open heart surgery History of aortic valve replacement History of heart surgery History of cholecystectomy History of colon resection History of colonoscopy Family History Other Cancer Heart attack Hypertension Stroke Social History Smoking Status: Never smoker second hand exposure: No alcohol intake: former substance use type: denies use current occupational status: retired Travel in the last 8 weeks?: None adopted: No caregiver/support person: Yes foster care: No household members: spouse housing: house lives independently: No marital status: 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 occupational exposures/hazards: No caffeine: Yes PM Subjective & Objective Subjective Subjective:: Patient is a pleasant 84-year-old male who presents today for follow-up of his left piriformis muscle injection on 02/07/2025. Today he rates his pain a 5 or 6 out of 10. He states however this is not in the same location. Patient does state that the injection did significantly help for that pain however he ended up trying to move a pfeiffer size mattress and felt like he aggravated some of his back pain there on the right side. Patient does state today that he feels like it is his SI joint. Patient states that is worse with increased activity and is interfering with his ability perform activities of daily living such as cooking and cleaning. Patient denies any new falls or injuries. He does also make mention that he has been losing weight unintentionally. He is asking if we have any suggestions for this. His Arden has been reviewed and is appropriate. Review of Systems: General: No recent weight changes, no fever, no sleep disturbances Respiratory: No cough, no shortness of air, no recurring pulmonary infections Cardiovascular/peripheral vascular: No chest pain, no palpitations, no edema, no shortness of breath Gastrointestinal: No new onset incontinence, normal bowel movements reported Genitourinary: No new onset incontinence Musculoskeletal: Low back pain right sided, right hip pain Psychiatric: [Normal mood/affect] Neurological: [Denies weakness in extremities], [denies balance issues] Pain at rest (0-10 scale): 5 Objective Objective:: Physical Exam: General: Alert and oriented x3, no acute distress, pleasant and cooperative Lungs: Respirations even and unlabored, symmetrical chest expansion Eyes: PERRL Musculoskeletal: Flexion and extension of lumbar [spine] somewhat guarded secondary to pain, [antalgic gait noted] point tenderness along right SI with positive right Silvia's, Brandi's, Gaenslen's, compression and distraction exam Neurological: Speech clear, no gross sensory deficit Has patient had previous pain injection?: Yes Percent improvement in pain since last injection: 50 Conservative treatment options previously tried: Home exercise plan Length of treatment: Longer than 12 weeks Meds Home Medications and Allergies Home Medications ?Medication ?Instructions ?Recorded ?Confirmed ?Type lisinopril 10 mg tablet 10 mg PO DAILY 02/20/20 02/21/25 History omeprazole magnesium 20 mg 20 mg PO DAILY 03/03/24 02/21/25 History tablet,delayed release atorvastatin 20 mg tablet (Lipitor) 20 mg PO DAILY #30 tabs 01/17/25 02/21/25 Rx finasteride 5 mg tablet 5 mg PO DAILY 90 days #90 tabs 02/20/25 02/21/25 Rx tamsulosin 0.4 mg capsule 0.4 mg PO DAILY 90 days #90 caps 02/20/25 02/21/25 Rx gabapentin 300 mg capsule 1,500 mg (5 x 300 mg) PO DAILY 02/21/25 02/21/25 Rx Focal seizures, neuropathy #150 caps New Prescriptions to Start Prescriptions: Allergies Allergy/AdvReac Type Severity Reaction Status Date / Time No Known Allergies Allergy Verified 02/21/25 08:53 Assessment and Plan *Assessment and plan (1) Sacroiliitis: Status: Acute Category: Medical Code(s): M46.1 - Sacroiliitis, not elsewhere classified Plan Patient is experiencing worsening pain in his right SI joint with limited range of motion, a positive right Silvia's, Brandi's, Gaenslen's, compression and distraction exam. I did review over with the patient that he may benefit from repeat SI injections on the right side. Risk and benefits were discussed with patient and he would like to proceed forward with this plan of care. Patient does have a longstanding history of chronic sacroiliitis with his last injections in June 2024. Patient has had significant relief through these injections in the past however occasionally they have provided more relief side than the other. Patient does state that the injections have improved his function and he would like to see about getting in for an injection for this. Patient has continued conservative treatment including oral medication, heat and ice, topicals, at home stretching exercises for longer than 12 weeks. Patient will be scheduled for a right SI injection under fluoroscopy. Patient has had chronic low back pain for longer than 6 months. I did also discuss with the patient regarding his weight loss and we did review over drinking Ensure to help ensure he is getting adequate nutrients. I did discuss with him that it may be beneficial to follow-up with primary care to see about ordering updated labs and other testing to see if they can determine what is causing the weight loss. Patient acknowledges understanding agrees with this plan of care. Patient was also counseled there are some medications that help increase appetite but may be worthwhile and trying. We will continue to follow-up on this. Patient has been instructed to contact the clinic with any concerns before the next appointment. Dr. Jimenez has reviewed this note and agrees with this plan of care. This note was dictated using voice recognition software and make contain errors or omissions. All injections are used with Lidocaine, Bupivacaine and dexamethasone. Occasionally urine drug screen is needed to verify patient's compliance with our office pain contract. This is ordered based off specific treatments related to chronic pain with the potential to abuse certain medications.
--- OUTSIDE RECORDS SUMMARY | 2025-02-22 10:41 | XMS_ITS | Encounter Summary ---
Author Organization [facility] Address [address] [place] [address] Care Team Providers Care Expansion Envelope Maker Hand Name Role Phone Robert Batista MD Primary Care Provider [phone] Encounter Details Date Type Department Care Team (Late Contact Info) Description 12/15/2022 Orders Only External Location [address] [place] [phone] Christiano Rm MD [address] [place] [address] Social History Tobacco Use Types Packs/Day [...] Department Care Team (Late Contact Info) Description 04/21/2025 8:30 AM EDT Consult [place] [facility] [address] [place] [address] NoDiana long M, FEATHER BALER [address] [place] [address] 08/07/2025 9:00 AM EST Appointment [facility] [address] [place] [phone] 08/07/2025 10:45 AM EST Office Visit [facility] [address] [place] [address] Darell Turcios MD [address] [place] [address] documented as of this encounter Procedures Procedure [...] on filedocumented in this encounter Care Teams Expansion Envelope Maker Hand Relationship Specialty Start Date End Date Robert Batista MD [address] [place] [address] [address]1 [address]1 [place] [address] PCP - General 12/07/20 documented as of this encounter
--- OUTSIDE RECORDS SUMMARY | 2025-02-22 10:41 | XMS_ITS | Encounter Summary ---
Author Organization [facility] Address [address] [place] [address] Care Team Providers Care Parking Enforcement Manager Name Role Phone Robert Batista MD Primary Care Provider [phone] Reason for Visit * Reason Onset Date Comments Appointment Changes 01/16/2025 Encounter Details Date Type Department Care Team (Late st Contact Info) Description 01/16/2025 Telephone [facility] [address], [address] [place] [address] Tari Christie, PA [address] [place] [address] Appointment Changes Social History Tobacco Use Types Packs/Day Years [...] any time in the past 12 m [facility], were you homeless or living in a care home (including now)? No 08/19/2024 CAGE ASSESSMENT Answer [...] drink first t ember in the morning (EYE-HUMAN RESOURCES SUPERVISOR) to steady your nerves or to get [...] AM EDT documented as of this encounter Miscellaneous Notes * Telephone Encounter - Caroline Hernandez - 01/16/2025 4:26 PM EDT Left voice mail with appointment changes from 02/13 to 04/04 at 10:10 in the [facility] at [address], [facility], [address] [place] documented in this encounter Plan of Treatment Upcoming Encounters Date Type Department Care Team (Late st Contact Info) Description 04/21/2025 8:30 AM EDT Consult [facility] Urology [address], [address] [place] [address] Diana Nam M, IN CLASS SPECIAL EDUCATION TEACHER [address] [place] [address] 08/07/2025 9:00 AM EST Appointment [facility] [address] [place] [phone] 08/07/2025 10:45 AM EST Office Visit [facility] [address] [place] [phone] Darell Turcios MD [address] [facility] [address] [place] [address] documented as of this encounter [...] documented as of this encounter Care Teams Parking Enforcement Manager Relationship Specialty Start Date End Date Robert Batista MD [address] [place] [address] [address]1 [address]1 [place] Lemus [id number] PCP - General 12/07/20 documented as of this encounter
--- OUTSIDE RECORDS SUMMARY | 2025-02-22 10:41 | XMS_ITS | Encounter Summary ---
Author Organization [facility] Address [address] [place] [address] Care Team Providers Care Electrocardiograph Technician Name Role Phone Robert Batista MD Primary Care Provider [phone] Encounter Details Date Type Department Care Team (Latest Contact Info) Description 02/06/2025 Travel Social History Tobacco Use Types Packs/Day [...] any time in the past 12 m [facility], were you homeless or living in a [place] health care facility (including now)? No 08/19/2024 CAGE ASSESSMENT Answer [...] drink first t ember in the morning (EYE-FERMENTATION ENGINEER) to steady your nerves or to get [...] Angelique Mazariegos documented as of this encounter Plan of Treatment Upcoming Encounters Date Type Department Care Team (Late st Contact Info) Description 04/21/2025 8:30 AM EDT Consult [place] [facility] [address] [place] [address] Diana Nam M, CIGAR MAKING MACHINE OPERATOR [address] [place] [phone] 08/07/2025 9:00 AM EST Appointment [facility] [address] [place] [phone] 08/07/2025 10:45 AM EST Office Visit [facility] [address] [place] [phone] Darell Turcios MD [address] [facility] [address] [place] [address] documented as of this encounter [...] documented as of this encounter Care Teams Electrocardiograph Technician Relationship Specialty Start Date End Date Robert Batista MD [address] [place] [address] #1 [address]1 [place] Lemus [address] PCP - General 12/07/20 documented as of this encounter
--- OUTSIDE RECORDS SUMMARY | 2025-02-22 10:41 | XMS_ITS | Clinical Summary ---
Author Organization [facility] Address [address] [place] [address] Care Team Providers Care Dowel Inserting Machine Operator Name Role Phone Robert Batista MD Primary Care Provider [phone] Social History Tobacco Use Types Packs/Day Years Used Date Smoking Tobacco: Never Assessed Abuse Screen Answer Date Recorded Unsafe at Home or Work/School Not on file Feels Threatened by Someone? Not on file 04/2023 Does Anyone Keep You from Co ntacting Others or Doint Things Outside the Home? Not on file 05/05/2023 Physical Sign of Abuse Present Not on file 1 Housing Stability Answer Date Recorded Current Living Arrangements Not on file 04/26 Potentially Unsafe Housing Conditions Not on smooth e 05/05/2023 Family and Community Support Answer Dev e Recorded Help with Day-to-Day Activities Not on file 05/05/2023 Lonely or Isolated Not on file 05/05/2023 Employment Answer Date Recorded Do you want help finding or keeping work or a kaity b? Not on file 05/05/2023 Disabilities Answer Date Recorded Concentrating, Remembering, or Making Decisions Difficulty Not on file 05/05/2023 Doing Errands Independently Difficulty Not on fi le 05/05/2023 Education Answer Date Recorded Help with school or training? Not on file Preferred Language Not on file 05/05/2023 Sex and Gender Information Value Date Recorded Sex Assigned at Not on file Legal Sex Male 12:10 PM EDT Gender Identity Not on file Sexual Orientation Not on file Plan of Treatment Health Maintenance Due Date Last Done Comments ANNUAL PHYSICAL 1940 TDAP/TD VACCINES (1 - Tdap) 1958 Pneumococcal Vaccine 50+ (1 of 1 - PCV) 1989 ZOSTER VACCINE (1 of 2) 1989 RSV Vaccine - Adults (1 - 1-dose 75+ series) 4 COVID-19 Vaccine ( - 2023- season) 2024 INFLUENZA VACCINE 04/26/2025 Care Teams Dowel Inserting Machine Operator Relationship Specialty Start Date End Date Robert Batista MD [address] [place] [address] PCP - General 11/02/15
--- OUTSIDE RECORDS SUMMARY | 2025-02-22 10:41 | XMS_ITS | Encounter Summary ---
Author Organization [facility] Address [address] [phone] Care Team Providers Care Gambreler Helper Name Role Phone Robert Batista MD Primary Care Provider Reason for Visit * Reason Onset Date Comments Appt Changes 02/02/2025 Encounter Details Date Type Department Care Team (Late st Contact Info) Description 02/02/2025 Telephone [facility] [address] [place] [address] NoDiana long M, LIQUID NATURAL GAS PLANT OPERATOR [address] [place] [address] Appt Changes Social History Tobacco Use Types Packs/Day [...] any time in the past 12 m [facility], were you homeless or living in a custodial (including now)? No 08/19/2024 CAGE ASSESSMENT Answer [...] drink first t ember in the morning (EYE-UNIONMELT OPERATOR) to steady your nerves or to get [...] * Telephone Encounter - Caroline Hernandez - 02/02/2025 2:48 PM EDT Left detailed message regarding 04/04 appointment changes with DIANA NAM APRN due to PTO, new appt 04/21 at 8:30 am in the [facility] at [address] [facility] [place] [address], patient left on the wait list. Mailed reminder. documented in this encounter Plan of Treatment Upcoming Encounters Date Type Department Care Team (Late st Contact Info) Description 04/21/2025 8:30 AM EDT Consult [facility] Urology [address] [place] [address] Diana Nam APRN [address] [place] [address] 08/07/2025 9:00 AM EST Appointment [facility] [address] [place] [phone] 08/07/2025 10:45 AM EST Office Visit [facility] [address] [place] [phone] Darell Turcios MD [address] [facility] [address] [place] [address] documented as of this encounter Goals Goal [...] documented as of this encounter Care Teams Gambreler Helper Relationship Specialty Start Date End Date Robert Batista MD [address] [place] [address] #1 #1 [place] [address] PCP - General 12/07/20 documented as of this encounter
--- OUTSIDE RECORDS SUMMARY | 2025-02-22 10:41 | XMS_ITS | Clinical Summary ---
Author Organization [facility] Address [address] [place] [address] Care Team Providers Care Fuselage Framer Name Role Phone Robert Batista MD Primary Care Provider [phone] Allergies No known active allergies Medications amLODIPine [...] Take 1 capsule by mouth. 5 Active finasteride (Proscar) 5 MG tablet Take 1 tablet by mouth daily. 5 Active Active Problems Problem Noted Date [...] Encounters Date Type Department Care Team Description 02/06/2025 10:45 AM EDT Office Visit [facility] [address] [place] [phone] Darell Turcios MD Mass of soft tissue of pelvis (Primary Dx) 02/06/2025 9:25 AM EDT - 02/06/2025 11:59 PM EDT Hospital Encounter [facility] [address] [place] [phone] Soft tissue sarcoma (CMS/HCC) Discharge Disposition: Home or Self Care 02/06/2025 Travel 02/02/2025 Telephone [place] [facility] [address] [place] [address] Diana Nam APRN Appt Changes 01/16/2025 Telephone [facility] [facility] [address], [address] [place] [address] Tari Christie, PA Appointment Changes from Last 3 Months Immunizations Immunization Administration [...] any time in the past 12 m [facility], were you homeless or living in a senior care (including now)? No 08/19/2024 CAGE ASSESSMENT Answer [...] drink first t ember in the morning (EYE-MANAGER OF SOFTWARE DEVELOPMENT) to steady your nerves or to get rid of a hangover? 0 08/14/2023 CAGE Questionnaire Score 0 024 Utilities Answer Date Recorded In the past 12 months has [employer], gas, oil, or water [employer]beat threatened to shut off services in your [...] Pulse 75 02/06/2025 10:45 AM EDT Temperature 36.3 C (97.4 F) 11/07/2024 11:08 AM EDT Respiratory Rate 16 02/06/2025 10:45 AM EDT Oxygen Saturation 96% 02/06/2025 10:45 AM EDT Inhaled Oxygen Concentration - - Weight 54.9 kg (121 lb 0.5 oz) 02/06/2025 10:45 AM EDT Height 167.6 cm (5' 6 ) 02/06/2025 10:45 AM EDT Body Mass Index 19.54 02/06/2025 10:45 AM EDT Plan of Treatment Upcoming Encounters Date Type Department Care Team (Late st Contact Info) Description 04/21/2025 8:30 AM EDT Consult [place] [facility] [address] [place] [address] Noethan Diana M, PLAYGROUND EQUIPMENT ERECTOR [address] [place] [address] 08/07/2025 9:00 AM EST Appointment [facility] [address] [place] [address] 08/07/2025 10:45 AM EST Office Visit [facility] [address] [place] [address] Darell Turcios MD [address] [facility] [address] [place] [address] Health Maintenance Due Date Last Done Comments [facility]-Bone Density Scan 1940 [facility]-Medicare Annual Wellness (AWV) 1939 [facility]-/Child/Adol SDOH Screenings 1939 [facility]-Hepatitis A Vaccines (1 of 2 - Risk 2-dose series) 1958 [facility]-Pneumococcal Vaccine: 50+ Years (1 of 2 - PCV) 1958 [facility]-Zoster Vaccines (1 of 2) 1958 [facility]-RSV Vaccine: 60+ Years or (1 - 1-dose 75+ series) 2014 [id number] Vaccine ( season) 2024 05/14/2022, 04/17/2021, 09/22/2020, Additional history exists [facility]- SDOH Screenings 02/16/2025 [facility]-Adult SDOH Screenings 02/16/2025 08/19/2024 [facility]-Influenza Vaccine (#1) 2025 [facility]-Depression Screening 02/06/2026 02/06/2025, 10/25 [facility]-DTaP,Tdap,and Td Vaccines (3 - Td [...] 1 AM EDT Soft tissue sarcoma (CMS/HCC) from Last 3 Months Results * XR Chest 2 Views (02/06/2025 [...] signing this report, I, the attending physician, nahid I have personally reviewed the images/data for the aboveexamination(s) and agree with the final edited report. Drafted by Marques Guerrero on 02/06/2025 10:45 AM Final report signed by Jairo Schilling MD on 02/06/2025 1:02 PM us Darell Turcios MD IMG XR PROCEDURES Final R esult from Last 3 Months Insurance [place] [id number] [facility] MEDICARE Advance Directives * Full Code [...] Patient has decision-making capacity? Yes Care Teams Fuselage Framer Relationship Specialty Start Date End Date Robert Batista MD [address] [place] [address] #1 #1 [place] Lemus [address] PCP - General 12/07/20
[2025-02-22 11:14] VITALS: BP 140/78; PULSE 96; RESP 14; O2SAT 96; BMI 18.9
== END 2025-02-22 23:59 | disposition home or self-care (01) ==
LOC: SC.PAIN 10:39
PROVIDERS: PCP Family Medicine; Visit Provider Nurse Practitioner Family
DX: M46.1 Sacroiliitis, not elsewhere classified (principal)
CPT/HCPCS: 99212; G0463

== ENCOUNTER 2025-02-23 14:02 | Outpatient (RCR) | payer MEDICARE, SELFPAY | END 2025-02-23 23:59 | disposition home or self-care (01) | LOC: PT 14:02 | DX: R53.81 Other malaise (principal) ==

== ENCOUNTER 2025-03-03 10:30 | Day surgery (SDC) | payer MEDICARE, SELFPAY ==
[2025-03-02 11:09] VITALS: BMI 18.8
--- NOTE | 2025-03-03 10:40 | P.HP_ITS ---
HPI HPI HPI: Patient presents for follow-up sigmoidoscopy and possible dilatation. 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 He had undergone low anterior resection by Dr. Henrik Polanco at [facility] in November 1997. In October 2021 he was admitted with possible bowel obstruction and had findings consistent with partial colon obstruction. This was managed nonoperatively. However, he has required multiple sigmoidoscopy with dilatation of recurrent benign stricture. * He underwent colonoscopy on 11/11/2021 which revealed severe anastomotic stricture which was dilated to 16.5 mm. He had undergone biopsies which were benign. * Flexible sigmoidoscopy on 01/03/22 with dilatation to 20 mm. * Sigmoidoscopy with dilatation was performed on 03/14/2022 with repeat dilatation to 20 mm. * He was dilated on 07/04/22 to 18 mm. * 10/10/2022 he was dilated to 20 mm. * Sigmoidoscopy on 10/23/2023 revealed essentially obstructed stricture with no visible luminal diameter. This was sequentially dilated initially beginning at 6 mm and ultimately to 13.5 mm * Sigmoidoscopy on 12/04/2023 revealed severe stricture creating high-grade partial distal obstruction which was dilated initially from 8 mm to ultimately 16.5. * Sigmoidoscopy on 01/15/2024 revealed rectal stricture approximately 11 to 12 cm from the anal verge. This was sequentially dilated ultimately to 18 mm. * Sigmoidoscopy on 07/08/2024 revealed benign-appearing anastomotic stricture at the proximal rectum which was ultimately dilated to 20 mm. 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 This was sequentially dilated from 15 ultimately to 20 mm. After his last sigmoidoscopy plan was made for 3-month follow-up scheduled the sigmoidoscopy and when he was scheduled he was actually admitted to the hospital with dizziness, syncope, and dehydration. Therefore his procedure was postponed. [facility] Disclaimer: The information contained in this section may have been updated after the patient was seen, as this information can be updated by other users. Medical History (Updated 03/03/25 @ 11:26 by Christiano Rm MD) Rectal stricture Dehydration Gait disturbance Elevated white blood cell count Aspiration into airway Bowel obstruction Hematemesis UTI (urinary tract infection) Colon stricture Large bowel obstruction Hematuria History of gastroesophageal reflux (GERD) History of cataract Sarcoma Sarcoma Tremor Peripheral neuropathy Chest pain Stroke Colon cancer Left hand paresthesia Left hand pain Chronic pain of right knee Stricture of sigmoid colon CVA (cerebrovascular accident) HTN (hypertension) Surgical History History of hip surgery H/O hernia repair History of cataract surgery History of open heart surgery History of aortic valve replacement History of heart surgery History of cholecystectomy History of colon resection History of colonoscopy Family History Other Cancer Heart attack Hypertension Stroke Social History Smoking Status: Never smoker second hand exposure: No alcohol intake: never substance use type: denies use current occupational status: other Travel in the last 8 weeks?: None adopted: No caregiver/support person: Yes foster care: No household members: spouse housing: house lives independently: No marital status: 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 occupational exposures/hazards: No caffeine: Yes Other Medical History Have you received the Flu Vaccine for this season: Yes Have you received the Pneumonia Vaccine: Yes Review of Systems Review of Systems Review of systems:: pertinent systems reviewed and negative unless documented below Meds Home Medications and Allergies Home Medications ?Medication ?Instructions ?Recorded ?Confirmed ?Type lisinopril 10 mg tablet 10 mg PO DAILY 02/20/2003/20 History omeprazole magnesium 20 mg 20 mg PO DAILY 03/03/2403/20 History tablet,delayed release atorvastatin 20 mg tablet (Lipitor) 20 mg PO DAILY #30 tabs 01/17/25 03/03/25 Rx finasteride 5 mg tablet 5 mg PO DAILY 90 days #90 ta bs 02/20/25 03/03/25 Rx tamsulosin 0.4 mg capsule 0.4 mg PO DAILY 90 days #90 caps 02/20/25 03/03/25 Rx gabapentin 300 mg capsule 1,500 mg (5 x 300 mg) PO CHRISTOPHER LY 02/21/25 03/03/25 Rx Focal seizures, neuropathy #150 caps New Prescriptions to Start Prescriptions: Allergies Allergy/AdvReac Type Severity Reaction Status Date / Time No Known Allergies Allergy Verified 03/03/25 10:48 Exam Data for Last 24 hours I & O for Last 24 hours: Intake & Output 02/28/25 03/01/25 03/02/25 03/03/25 11:59 11:59 11:59 11:59 Weight 120 lb Constitutional Constitutional: no acute distress *Routine HEENT Exam Head: Present normocephalic Eye: Present EOMI ENT: Present mucous membranes moist *Routine Respiratory Exam Respiratory: Present CTA bilaterally *Routine Cardiovascular Exam Cardiovascular: Present murmur *Routine Abdominal Exam Abdominal: Present soft *Routine Rectal Exam Rectal:: deferred *Routine Genitalia Exam Genitalia:: deferred Assessment and Plan *Assessment and plan (1) Rectal stricture: Status: Acute Category: Medical Code(s): K62.4 - Stenosis of anus and rectum Plan Plan to proceed with sigmoidoscopy and possible dilatation.
[2025-03-03 10:51] VITALS: BP 104/57; PULSE 86; RESP 16; TEMP 36.4; O2SAT 97
--- NOTE | 2025-03-03 10:58 | P.PNANES_ITS ---
[facility] Disclaimer: The information contained in this section may have been updated after the patient was seen, as this information can be updated by other users. Medical History Dehydration Gait disturbance Elevated white blood cell count Aspiration into airway Bowel obstruction Hematemesis UTI (urinary tract infection) Colon stricture Large bowel obstruction Hematuria History of gastroesophageal reflux (GERD) History of cataract Sarcoma Sarcoma Tremor Peripheral neuropathy Rectal stricture Chest pain Stroke Colon cancer Left hand paresthesia Left hand pain Chronic pain of right knee Stricture of sigmoid colon CVA (cerebrovascular accident) HTN (hypertension) Surgical History History of hip surgery H/O hernia repair History of cataract surgery History of open heart surgery History of aortic valve replacement History of heart surgery History of cholecystectomy History of colon resection History of colonoscopy Family History Other Cancer Heart attack Hypertension Stroke Social History Smoking Status: Never smoker second hand exposure: No alcohol intake: former substance use type: denies use current occupational status: other Travel in the last 8 weeks?: None adopted: No caregiver/support person: Yes foster care: No household members: spouse housing: house lives independently: No marital status: 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 occupational exposures/hazards: No caffeine: Yes Have you lived/traveled outside [place] in past 30 days?: No Contact w/someone who lives/traveled outside US past 30 days?: No Exposure to someone with infectious disease in past 14 days?: No Do you have a fever (greater than 100.4 F or 38 C)?: No Have you tested positive for COVID-19?: No Exposed to someone with COVID-19 in past 14 days?: No Do you have a sore throat?: No Do you have a cough?: No Do you have any weakness?: No Do you have any diarrhea?: No Are you experiencing any unusual bleeding?: No Do you have any muscle aches/pain?: No Do you have any abdominal pain?: No Are you experiencing loss of taste or smell?: No [facility] Anesthesia Checklist Patient Identification Patient Identification: Arm Band and Verbal (Name & ) Structural Data Admitted From: Home Planned Operative Procedure/s: flex sig Consent for Planned Operative Procedure(s) Verified: Yes Verified Documents: Surgical Consent and History and Physical NPO Status Verified Time NPO: 00:00 Additional verifications Anesthesia Reactions: No Hx Blood Transfusions: No Blood Transfusion Reaction: No Previous Colonoscopy: Yes Airway Assessment Dentition: Edentulous Neurological Assessment Level of Consciousness: Awake, Alert and Appropriate Hx Seizures: Yes Anesthesia Plan Anesthesia Risk discussed: Yes Anesthesia Plan: Verified ASA Class: III Anesthesia Type: MAC
[2025-03-03] MEDS: LACTATED RINGERS 1000ML 1,000 ML 50 ML IV (11:01)
[2025-03-03 11:27] VITALS: BP 97/44; PULSE 65; RESP 18; TEMP 36.3; O2SAT 100
--- NOTE | 2025-03-03 11:27 | P.PCN_ITS ---
Procedure: Date: 03/03/25 Patient Date of :: 1940 Procedure Performed:: Flexible sigmoidoscopy with pneumatic dilatation using TTS balloon dilator of rectal stricture to 20 mm Indications:: Patient presents for follow-up sigmoidoscopy and possible dilatation. 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 He had undergone low anterior resection by Dr. Henrik Polanco at [facility] in November 1997. In October 2021 he was admitted with possible bowel obstruction and had findings consistent with partial colon obstruction. This was managed nonoperatively. However, he has required multiple sigmoidoscopy with dilatation of recurrent benign stricture. * He underwent colonoscopy on 11/11/2021 which revealed severe anastomotic stricture which was dilated to 16.5 mm. He had undergone biopsies which were benign. * Flexible sigmoidoscopy on 01/03/22 with dilatation to 20 mm. * Sigmoidoscopy with dilatation was performed on 03/14/2022 with repeat dilatation to 20 mm. * He was dilated on 07/04/22 to 18 mm. * 10/10/2022 he was dilated to 20 mm. * Sigmoidoscopy on 10/23/2023 revealed essentially obstructed stricture with no visible luminal diameter. This was sequentially dilated initially beginning at 6 mm and ultimately to 13.5 mm * Sigmoidoscopy on 12/04/2023 revealed severe stricture creating high-grade partial distal obstruction which was dilated initially from 8 mm to ultimately 16.5. * Sigmoidoscopy on 01/15/2024 revealed rectal stricture approximately 11 to 12 cm from the anal verge. This was sequentially dilated ultimately to 18 mm. * Sigmoidoscopy on 07/08/2024 revealed benign-appearing anastomotic stricture at the proximal rectum which was ultimately dilated to 20 mm. 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 This was sequentially dilated from 15 ultimately to 20 mm. After his last sigmoidoscopy plan was made for 3-month follow-up scheduled the sigmoidoscopy and when he was scheduled he was actually admitted to the hospital with dizziness, syncope, and dehydration. Therefore his procedure was postponed. Performing Provider:: Christiano Rm MD Referring Provider:: Brayan Batista MD Sedation:: MAC sedation Procedure:: Patient history was obtained and appropriate physical examination was performed. Patient's medications and allergies were reviewed. Informed consent was obtained after explaining the benefits, alternatives, and risks of the procedure including, but not limited to, bleeding, perforation, missed lesions, and adverse reaction to anesthesia medications. Patient was transported to endoscopy procedure room. Patient was connected to monitoring devices. Throughout the procedure the patient's blood pressure, pulse, and oxygen saturations were monitored continuously. Patient identification and planned procedure were verified by the staff. Patient was positioned in lateral decubitus position. Digital anorectal exam was performed. Olympus endoscope was inserted via the anus. There was some pasty stool within the rectum which was cleared. Stricture was noted. There was a visible staple. The endoscope was able to be advanced beyond this into the distal sigmoid colon. The 18 to 20 mm balloon was inserted and as the endoscope was withdrawn it was advanced so that it traversed the stricture. The stricture was sequentially dilated to 18 mm then 19 mm and ultimately to 20 mm wart was held in position for about a minute and a half. Balloon was deflated and withdrawn. The endoscope was able to be advanced beyond this. There appeared to be good hemostasis. Endoscope was withdrawn. Findings:: Rectal stricture at approximately 12 cm from the anal verge dilated to 20 mm Recommendations:: Likely repeat sigmoidoscopy with possible dilatation 3 to 4 months. Complications:: None immediately apparent Estimated blood obtained (mL): 1 Colonoscopy Component Colonoscopy Component Was a colonoscopy performed during today's procedure?: No Recommended follow up colonoscopy of at least 10 years?: Yes
[2025-03-03 11:37] VITALS: BP 111/60; PULSE 68; RESP 16; O2SAT 97
[2025-03-03 11:47] VITALS: BP 123/66; PULSE 67; RESP 16; O2SAT 98
[2025-03-03 11:51] VITALS: BP 123/66; PULSE 67; RESP 16; TEMP 36.3; O2SAT 98
== END 2025-03-03 11:51 | disposition home or self-care (01) ==
PROVIDERS: PCP Family Medicine; Visit Provider Surgery
PROC: 0DJD8ZZ Inspection of Lower Intestinal Tract, Via Natural or Artificial Opening Endoscopic (ICD-10-PCS; CPT 45330; principal; 2025-03-03 11:30)
DX: K62.4 Stenosis of anus and rectum (principal); K21.9 Gastro-esophageal reflux disease without esophagitis; G62.9 Polyneuropathy, unspecified; Z85.038 Personal history of other malignant neoplasm of large intestine; Z86.73 Personal history of transient ischemic attack (TIA), and cerebral infarction without residual deficits; I10 Essential (primary) hypertension; Z79.899 Other long term (current) drug therapy
CPT/HCPCS: 45340; C1726; J2003; J2371; J2704; J7120

== ENCOUNTER 2025-03-21 11:49 | Day surgery (SDC) | payer MEDICARE, SELFPAY ==
[2025-03-21 11:54] VITALS: BP 114/68; PULSE 77; RESP 18; O2SAT 97; BMI 19.0
[2025-03-21 12:20] VITALS: BP 135/71; PULSE 78; RESP 18; O2SAT 97
[2025-03-21] MEDS: LIDOCAINE 1% 5ML PF VIAL 5 ML (12:27)
[2025-03-21] MEDS: BUPIVACAINE 0.25% 10ML INJ 25 MG IJ (12:27)
[2025-03-21] MEDS: DEXAMETHASONE 10MG/ML 1ML VIAL 10 MG (12:28)
[2025-03-21 12:30] VITALS: BP 160/67; PULSE 77; RESP 18; O2SAT 96
[2025-03-21 12:34] VITALS: BP 160/67; PULSE 77; RESP 18; O2SAT 96
--- NOTE | 2025-03-21 12:50 | P.PCN_ITS ---
Procedure Date: 03/21/25 Time: 12:30 Anesthesiologist:: Mehran James CRNA Complications:: None Pre-procedure Diagnosis:: Right sacroiliitis Post-procedure Diagnosis:: Same Indications for Procedure:: Patient is a pleasant 84-year-old male who comes our clinic today for right sacroiliac joint injection of cortisone local anesthetic. Patient describes right low lumbar back pain as well as right posterior hip pain is constant, dull, aching. Patient reports difficulty transitioning from sitting to standing. Difficulty with ambulation. Patient rates his pain 7/10. Procedure Details:: Procedure: Right sacroliliac joint injection under fluoroscopy Informed consent was obtained and the risk and benefits of the procedure were explained to the patient.~ The patient was taken to the procedure room and noninvasive monitors were placed including noninvasive blood pressure cuff and pulse oximeter.~ The patient was placed prone on the procedure table.~ The~ right hip was cleansed using Betadine as a cleansing solution.~ C-arm flu orosocpy was used to view the right SI joint.~ The skin and subcutaneous tissues were anesthetized using Lidocaine 1.5% and a 25-gauge needle.~ After this, a 22- gauge spinal needle was inserted under fluoroscopic guidance into the inferior aspect of the right SI joint.~ Omnipaque dye was injected and a good spread was seen throughout the joint.~ After this, approximately 5 mL of bupivacaine 0.25% and dexamethasone 10 mg mg was incrementally injected into the sacroiliac joint.~ The patient tolerated the procedure well with no complications.~ The patient was observed in the Pain Clinic, then discharged home neurologically intact.~ Plan and Disposition:: Patient was discharged without incident.
== END 2025-03-21 12:20 | disposition home or self-care (01) ==
LOC: SC.PAINP 11:50
PROVIDERS: PCP Family Medicine; Visit Provider Nurse Anesthetist, Certified Registered
DX: M46.1 Sacroiliitis, not elsewhere classified (principal); I10 Essential (primary) hypertension; G62.9 Polyneuropathy, unspecified; K21.9 Gastro-esophageal reflux disease without esophagitis; Z95.5 Presence of coronary angioplasty implant and graft; Z86.69 Personal history of other diseases of the nervous system and sense organs; Z85.038 Personal history of other malignant neoplasm of large intestine; Z86.73 Personal history of transient ischemic attack (TIA), and cerebral infarction without residual deficits; Z79.899 Other long term (current) drug therapy
CPT/HCPCS: 64450; J0665; J1100; J2003

== ENCOUNTER 2025-03-28 13:08 | Outpatient (RCR) | payer MEDICARE, SELFPAY ==
--- NOTE | 2025-03-28 14:52 | HMH.PTOPEV ---
PT Outpatient Evaluation Rehab PT Outpatient Evaluation Start: 03/28/25 13:12 Freq: Status: Active Protocol: Document 03/28/25 13:15 TEO (Rec: 03/28/25 14:48 TEO [id number]) E-signed By Vivien Bowles, PT Outpatient Therapy Subjective History Subjective History This is an initial PT evaluation for 84 y/o male, Francesco Adorno, who presents to PT with referral for inflammation of the SIJ and chronic LBP. Pt reports he has had this back pain for years. However, pt reports his left side is usually worse than the right. Pt reports ~5-6 weeks ago he was lifting a bed and reports possibly pulling his right low back. Pt has been seeing pain management for his LBP. Pt found relief from his pain on the left side with SIJ injections but reports the right-sided pain was not relieved with the injections. Pt reports walking, laying on his right side, and standing aggravates his pain the most. Pt has had x-rays on his hip that show degenerative and post- operative changes. 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 Pt reports he gets frequent chest scans to monitor for lung lesions. Pt goes back to pain management on 04/14 for a follow-up post-injections. Additionally, pt broke his R hip in September which required surgery. Pt does have c/o of RLE numbness from previous CVA and B foot neuropathy. PMH: Colon cancer (1997), CVA (4 years ago), open heart surgery, soft tissue sarcoma New diagnosis of No cancer in past 12 months? Chief Complaint Pain Symptom Type Ache Symptoms Relieved By Heat,OTC Meds Symptoms Aggravated Physical Activity,Walking By Prior Functional None Limitations Current Functional Lifting,Housework,Sleeping,Standing,Recreation Activity Limitations ,Walking Level of pain today 5 (0-10) Pain scale - at its 4 best (0-10) Pain scale - at its 8 worst (0-10) Lumbopelvic Eval Posture Thoracic Spine Increased Kyphosis Posture Standing Position Assistive device Assistive Devices Straight Cane Gait Observation General Gait Pattern Antalgic Gait Observation Palapation tenderness right thoracic spinal No tenderness lumbar spinal Yes tenderness paraspinal Yes tenderness buttock tenderness Yes Lumbar/Sacral 2-3/4 TTP lumbar structures Palpation Overall Comment Accessory Movement L4 bilateral L5 bilateral S1 bilateral Range of Motion Lumbar Spine Active WNL, non-painful Flexion Range of Motion (degrees) Lumbar Spine Active 25%, painful Extension Range of Motion (degrees) Left Lumbar Spine 75% Lateral Flexion Active Range of Motion (degrees) Right Lumbar Spine 75%, painful R LB Lateral Flexion Active Range of Motion (degrees) Manual Muscle Test Left Knee Extension 4 Good Strength Grade Knee Flexion 4 Good Strength Grade Hip Flexion Strength 4 Good Grade Hip Abduction 4 Good Strength Grade Hip Adduction 4 Good Strength Grade Hip Extension 4- Good- Strength Grade Right Knee Extension 4 Good Strength Grade Knee Flexion 4 Good Strength Grade Hip Flexion Strength 3- Fair- Grade Hip Abduction 3+ Fair+ Strength Grade Hip Adduction 3+ Fair+ Strength Grade Hip Extension 3+ Fair+ Strength Grade Special Tests Hip Scouring ( Positive Left,Positive Right Quadrant) Test Sciatic Nerve Negative Left,Negative Right Tension Test Unilateral Straight Negative Left,Positive Right Leg Raise (Lasegue) Test Bilateral Straight Positive Leg Raise Test Crossed Straight Leg Negative Left,Negative Right Raise Test Lumbar Spine Stoop Positive Test Sacroiliac Joint Positive Right Compression Test Sacroiliac Joint Positive Right Distraction Test Oswestry Index Section 1 Pain Intensity The pain comes and goes and is severe Section 2 Personal Care ( my way of washing or dressing even though it causes Washing,Dresing) some pain Section 3 Lifting I can only lift very light weights at most Section 4 Walking I cannot walk more than 1/4 mile without increasing pain Section 5 Sitting Pain prevents me from sitting for more than 1/2 hour Section 6 Standing I cannot stand more than 1/2 hour without increasing pain Section 7 Sleeping Because of my pain, my normal night's sleep is less than 6 hours sleep Section 8 Social Life Pain has no significant effect on my social life apart from limiting Section 9 Traveling I get extra pain while traveling, but it does not compel me to seek al Section 10 Changing Degreee of My pain is gradually getting worse Pain Score and Risk Level Oswestry Score 30 Oswestry Risk Level Severe Disability Miscellaneous Dx PT Eval Objective Objective Cluster of [place]: 1) distraction: +/painful 2) compression: +/painful 3) thigh thrust: +/painful 4) Gaenslen's: +/painful 5) sacral thrust: +/painful Outpatient Therapy Assessment Impairments Problems/ Impaired Range of Motion,Impaired Strength,Impaired Impairmments Endurance,Impaired Transfers,Impaired Gait Pattern, Impaired Walking,Impaired Standing,Impaired Stair Climbing,Impaired Stepping on Uneven Surface,Impaired Squatting,Impaired Bending,Impaired Recreational Activities,Impaired Balance,Subjective C/O Pain Prognosis Rehab Potential Good Comment Pt presents with objective findings and subjective complaints consistent with his diagnosis of SIJ inflammation. Pt would benefit from skilled OP PT to address pain complaints and improve QOL. PT provided pt with HEP to target core strengthening and muscle lengthening. Pt demo'd and verbalized good understanding. Clinical Impression Consistent with No Diagnosis PT Patient Goals PT Patient Goals PT Short Term In 4 weeks, pt will: Patient Goals 1) Verbalize compliance with home exercise program to improve self-maintenance of symptoms. 2) Verbalize 48-hour pain average (worst/best/current) of 4/10 3) Improve RLE strength by 1/5 MMT grade to improve daily functioning. 4) Tolerate one 10 min moderate intensity endurance task (ex: bike) 5) Improve PATTI to at most 28 points to decrease disability from LBP and improve QOL. 6) Verbalize feeling at least 45% improved in symptoms since initial PT evaluation. PT [employer] Patient In 6-8 weeks, pt will: Goals 1) Verbalize adherence with home exercise program to maximize self-maintenance of symptoms upon d/c from PT POC. 2) Verbalize 48-hour pain average (worst/best/current) of 2-3/10 3) Improve BLE strength to at least 4/5 MMT grade to improve daily functioning. 4) Improve PATTI to at most 24 points to decrease disability from LBP and improve QOL. 7) Verbalize feeling at least 90% improved in symptoms since initial PT evaluation. Outpatient Therapy Plan of Care Treatment Plan May Include Therapeutic Exercise Yes Including Home Exercise Program Manual Therapy Yes Techniques Neuromuscular Re- Yes education Therapeutic Yes Activities to Return to Previous Functional/Work Level Gait Training Yes ADL/Self Care Yes Education Dry Needling Yes Thermal Modalities Yes Electrical Yes Stimulation Ultrasound/ Yes Phonophoresis Iontophoresis Yes Orthotics/Bracing/ Yes Splinting Massage Yes Group Therapy for Yes Medicare Eval/Re-Eval Yes Frequency Times per week 2x weekly Duration Number of Weeks 6-8 weeks Addendums This patient is a No candidate for social or vocational rehab ? Patient/Guardian Yes verbally acknowledges understanding of treatment program and consents to further treatment? Patient/Guardian Yes verbally acknowledges understanding of diagnosis, prognosis and goals for treatment? Eval Complexity PT Charges 35182 - Moderate Complexity Shoulder/Elbow Eval Shoulder Objective Measurements Elbow Objective Measurements PHYSICIAN CERTIFICATION: I certify the specified therapy services for Francesco Adorno are required, authorized, and reviewed every 30 days.
== END 2025-03-28 23:59 | disposition home or self-care (01) ==
LOC: PT 13:08
PROVIDERS: PCP Family Medicine; Visit Provider Nurse Practitioner Family
DX: M46.1 Sacroiliitis, not elsewhere classified (principal)
CPT/HCPCS: 97162

== ENCOUNTER 2025-06-02 10:28 | Day surgery (SDC) | payer MEDICARE, SELFPAY ==
[2025-05-31 10:01] VITALS: BMI 19.5
[2025-06-02 10:44] VITALS: BP 140/79; PULSE 74; RESP 18; TEMP 36.3; O2SAT 96
[2025-06-02] MEDS: LACTATED RINGERS 1000ML 1,000 ML 50 ML IV (10:59)
--- NOTE | 2025-06-02 11:33 | P.PNANES_ITS ---
[facility] Disclaimer: The information contained in this section may have been updated after the patient was seen, as this information can be updated by other users. 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 OP follow-up at [facility] Tremor Stable Peripheral neuropathy Chest pain Stroke Colon cancer Left hand paresthesia Left hand pain Chronic pain of right knee Stricture of sigmoid colon CVA (cerebrovascular accident) HTN (hypertension) Surgical History History of hip surgery H/O hernia repair History of cataract surgery History of open heart surgery History of aortic valve replacement History of heart surgery History of cholecystectomy History of colon resection History of colonoscopy Family History Other Cancer Heart attack Hypertension Stroke Social History Smoking Status: Never smoker second hand exposure: No alcohol intake: never substance use type: denies use current occupational status: other Travel in the last 8 weeks?: None adopted: No caregiver/support person: Yes foster care: No household members: spouse housing: house lives independently: No marital status: 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 occupational exposures/hazards: No caffeine: Yes [facility] Anesthesia Checklist Patient Identification Patient Identification: Verbal (Name & ) Structural Data Admitted From: Home Planned Operative Procedure/s: colonoscopy Consent for Planned Operative Procedure(s) Verified: Yes Additional verifications Anesthesia Reactions: No Hx Blood Transfusions: No Blood Transfusion Reaction: No Airway Assessment Mallampati Score:: Class II C-Spine Mobility Assessed: Yes TMJ Mobility Assessed: Yes Dentition: Good Dentition Neurological Assessment Level of Consciousness: Awake, Alert and Appropriate Anesthesia Plan Anesthesia Risk discussed: Yes Anesthesia Plan: Verified ASA Class: III Anesthesia Type: MAC
--- NOTE | 2025-06-02 12:17 | EXP.GEN.HP ---
HPI HPI HPI: Patient presents for full colonoscopy. He is a regular patient of mine whom I have done repeated flexible sigmoidoscopies and dilatation for proximal rectal stricture after he had a low anterior resection. Last dilatation was done 03/03/2025. Plan was for follow-up flexible sigmoidoscopy with dilatation June 02. Primary care provider has ordered a [facility] SHIELD test which was positive. I had performed full colonoscopy on 11/11/2021 to the terminal ileum at which time he had a rectosigmoid polyp which revealed normal colonic mucosa and reactive granulation tissue. Anastomotic biopsies at that time were benign. [facility] Disclaimer: The information contained in this section may have been updated after the patient was seen, as this information can be updated by other users. 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 OP follow-up at [facility] Tremor Stable Peripheral neuropathy Chest pain Stroke Colon cancer Left hand paresthesia Left hand pain Chronic pain of right knee Stricture of sigmoid colon CVA (cerebrovascular accident) HTN (hypertension) Surgical History History of hip surgery H/O hernia repair History of cataract surgery History of open heart surgery History of aortic valve replacement History of heart surgery History of cholecystectomy History of colon resection History of colonoscopy Family History Other Cancer Heart attack Hypertension Stroke Social History Smoking Status: Never smoker second hand exposure: No alcohol intake: never substance use type: denies use current occupational status: other Travel in the last 8 weeks?: None adopted: No caregiver/support person: Yes foster care: No household members: spouse housing: house lives independently: No marital status: 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 occupational exposures/hazards: No caffeine: Yes Other Medical History Have you received the Flu Vaccine for this season: No Have you received the Pneumonia Vaccine: Yes Meds Home Medications and Allergies Home Medications ?Medication ?Instructions ?Recorded ?Confirmed ?Type lisinopril 10 mg tablet 10 mg PO DAILY 02/20/20 06/02/25 History omeprazole magnesium 20 mg 20 mg PO DAILY 03/03/24 06/02/25 History tablet,delayed release atorvastatin 20 mg tablet (Lipitor) 20 mg PO DAILY #30 tabs 01/17/25 06/02/25 Rx finasteride 5 mg tablet 5 mg PO DAILY 90 days #90 tabs 02/20/25 06/02/25 Rx tamsulosin 0.4 mg capsule 0.4 mg PO DAILY 90 days #90 caps 02/20/25 06/02/25 Rx gabapentin 300 mg capsule 1,500 mg (5 x 300 mg) PO DAILY 02/21/25 06/02/25 Rx Focal seizures, neuropathy #150 caps duloxetine 60 mg capsule,delayed 60 mg PO BID #60 caps 04/20/25 06/02/25 Rx release sodium,potassium,mag sulfates 17.5 See Rx Instructions PO .COMPLEX 05/04/25 06/02/25 Rx gram-3.13 gram-1.6 gram oral soln #354 mL (Suprep Bowel Prep Kit) New Prescriptions to Start Prescriptions: Allergies Allergy/AdvReac Type Severity Reaction Status Date / Time No Known Allergies Allergy Verified 06/02/25 10:40 Exam Data for Last 24 hours Vital signs and Labs for Last 24 Hours: Temp Pulse Resp BP Pulse Ox O2 Del Method 97.4 F L 74 18 140/79 96 Room Air 06/02/25 10:44 06/02/25 10:44 06/02/25 10:44 06/02/25 10:44 06/02/25 10:44 06/02/25 10:44 I & O for Last 24 hours: Intake & Output 05/31/25 06/01/25 06/02/25 06/03/25 11:59 11:59 11:59 11:59 Weight 125 lb Constitutional Constitutional: no acute distress *Routine HEENT Exam Head: Present normocephalic Eye: Present EOMI and PERRL ENT: Present mucous membranes moist *Routine Neck Exam Neck: Present supple; Absent lymphadenopathy *Routine Respiratory Exam Respiratory: Present CTA bilaterally *Routine Cardiovascular Exam Cardiovascular: Present RRR *Routine Abdominal Exam Abdominal: Present soft and normoactive bowel sounds; Absent tenderness *Routine Rectal Exam Rectal:: deferred *Routine Genitalia Exam Genitalia:: deferred *Routine Extremities Exam Extremities: Absent cyanosis, clubbing or edema *Routine Skin Exam Skin: Present warm; Absent rash *Routine Neurological Exam Neurological: Present alert and oriented X3 Assessment and Plan *Assessment and plan (1) Positive colorectal cancer screening using DNA-based stool test: Status: Acute Category: Medical Code(s): R19.5 - Other fecal abnormalities Plan Plan to proceed with full colonoscopy along with possible dilatation
--- NOTE | 2025-06-02 12:22 | HMH.SCOPE ---
Procedure: Date: 06/02/25 Patient Date of :: 1940 Procedure Performed:: Colonoscopy ileocecal valve with polypectomy and biopsy of stricture and dilatation to 20 mm Indications:: Patient presents for full colonoscopy and possible dilatation of rectosigmoid stricture.. 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 He had undergone low anterior resection by Dr. Henrik Polanco at [facility] in November 1997. In October 2021 he was admitted with possible bowel obstruction and had findings consistent with partial colon obstruction. This was managed nonoperatively. However, he has required multiple sigmoidoscopy with dilatation of recurrent benign stricture. He underwent colonoscopy on 11/11/2021 which revealed severe anastomotic stricture which was dilated to 16.5 mm. He had undergone biopsies which were benign. Flexible sigmoidoscopy on 01/03/22 with dilatation to 20 mm. Sigmoidoscopy with dilatation was performed on 03/14/2022 with repeat dilatation to 20 mm. He was dilated on 07/04/22 to 18 mm. 10/10/2022 he was dilated to 20 mm. Sigmoidoscopy on 10/23/2023 revealed essentially obstructed stricture with no visible luminal diameter. This was sequentially dilated initially beginning at 6 mm and ultimately to 13.5 mm Sigmoidoscopy on 12/04/2023 revealed severe stricture creating high-grade partial distal obstruction which was dilated initially from 8 mm to ultimately 16.5. Sigmoidoscopy on 01/15/2024 revealed rectal stricture approximately 11 to 12 cm from the anal verge. This was sequentially dilated ultimately to 18 mm. Sigmoidoscopy on 07/08/2024 revealed benign-appearing anastomotic stricture at the proximal rectum which was ultimately dilated to 20 mm. Sigmoidoscopy on 10/18/2024 as an inpatient revealed very poor preparation and foul-smelling stool with some exudative colitis at the region of the stricture. This was sequentially dilated from 15 ultimately to 20 mm. Sigmoidoscopy on 03/03/2025 revealed rectal stricture at approximately 12 cm from the anal verge dilated to 20 mm. Plan was for scheduled follow-up sigmoidoscopy. Through his primary care provider's office he underwent a [facility] [employer] [facility] [employer] SHIELD test which was positive. Therefore he was sent for evaluation for full colonoscopy. I had performed full colonoscopy on 11/11/2021. . . Performing Provider:: Christiano Rm MD . Referring Provider:: Brayan Batista MD . Sedation:: MAC sedation . Procedure:: Patient history was obtained and appropriate physical examination was performed. Patient's medications and allergies were reviewed. Informed consent was obtained after explaining the benefits, alternatives, and risks of the procedure including, but not limited to, bleeding, perforation, missed lesions, and adverse reaction to anesthesia medications. Patient was transported to endoscopy procedure room. Patient was connected to monitoring devices. Throughout the procedure the patient's blood pressure, pulse, and oxygen saturations were monitored continuously. Patient identification and planned procedure were verified by the staff. Patient was positioned in lateral decubitus position. Digital anorectal exam was performed. Variable stiffness Olympus colonoscope was inserted and advanced under direct visualization to the cecum. Adequacy of the colonic preparation was noted. . The colonoscope was then slowly withdrawn while carefully examining the color, texture, anatomy, and integrity of the mucosoa circumferentially. Within the rectum retroflexion was performed. Colonoscope was then withdrawn. Impression: Upon insertion of the colonoscope rectal stricture was noted about 18 cm from the anal verge. It appeared rather tight but the colonoscope was able to be traversed through the narrowing. It was advanced to the cecum. Colonic preparation was good. Ileocecal valve and appendiceal orifice were noted. There was a possible tiny early diminutive polyp as a focal tiny area of prominence of mucosa in the cecum which was biopsied with cold biopsy forceps. Colonoscope was withdrawn. Upon withdrawing to the stricture a couple of biopsies were obtained. This appeared to be benign fibrotic stricture. It was dilated using the pneumatic dilating balloon sequentially from 18 to 19 to 20 mm luminal diameter. Colonoscope was withdrawn. . Findings:: There was a possible Recommendations:: Follow-up on histopathology. May consider repeat sigmoidoscopy in 3 or 4 months. Complications:: None immediately apparent Estimated blood obtained (mL): 2 Colonoscopy Component Colonoscopy Component Was a colonoscopy performed during today's procedure?: Yes Recommended follow up colonoscopy of at least 10 years?: No If no, follow up colonoscopy recommended in ___ years?: See above Reason for not recommending >/= 10 yr follow-up interval?: See above
[2025-06-02 13:10] VITALS: BP 95/58; PULSE 64; RESP 16; TEMP 36.2; O2SAT 93
[2025-06-02 13:20] VITALS: BP 118/63; PULSE 63; RESP 16; O2SAT 96
[2025-06-02 13:30] VITALS: BP 123/62; PULSE 65; RESP 18; O2SAT 97
[2025-06-02 13:40] VITALS: BP 139/73; PULSE 67; RESP 18; O2SAT 97
== END 2025-06-02 13:45 | disposition home or self-care (01) ==
PROVIDERS: PCP Family Medicine; Visit Provider Surgery
PROC: 0DJD8ZZ Inspection of Lower Intestinal Tract, Via Natural or Artificial Opening Endoscopic (ICD-10-PCS; principal; 2025-06-02 11:30)
DX: D12.0 Benign neoplasm of cecum (principal); K63.5 Polyp of colon; I10 Essential (primary) hypertension; G62.9 Polyneuropathy, unspecified; K21.9 Gastro-esophageal reflux disease without esophagitis; Z85.038 Personal history of other malignant neoplasm of large intestine; Z86.73 Personal history of transient ischemic attack (TIA), and cerebral infarction without residual deficits; Z90.49 Acquired absence of other specified parts of digestive tract; Z79.899 Other long term (current) drug therapy; Z82.49 Family history of ischemic heart disease and other diseases of the circulatory system
CPT/HCPCS: 45380; 45386; 88305; C1726; J2003; J2704; J7120

== ENCOUNTER 2025-06-06 11:14 | Day surgery (SDC) | payer MEDICARE, SELFPAY ==
[2025-06-06 11:18] VITALS: BP 159/78; PULSE 71; RESP 16; O2SAT 98; BMI 19.8
[2025-06-06 11:22] VITALS: BP 176/77; PULSE 74; RESP 18; O2SAT 96
[2025-06-06] MEDS: DEXAMETHASONE 10MG/ML 1ML VIAL 10 MG (11:22)
[2025-06-06] MEDS: LIDOCAINE 1% 5ML PF VIAL 5 ML (11:22)
[2025-06-06] MEDS: BUPIVACAINE 0.25% 10ML INJ 25 MG IJ (11:23)
[2025-06-06 11:26] VITALS: BP 176/77; PULSE 74; RESP 18; O2SAT 96
[2025-06-06 11:30] VITALS: BP 169/83; PULSE 73; RESP 16; O2SAT 98
--- NOTE | 2025-06-06 11:30 | EXP.PAIN.PRO ---
Procedure Date: 06/06/25 Time: 11:30 Anesthesiologist:: Mehran James CRNA Complications:: None Pre-procedure Diagnosis:: DJD right knee. Chronic right knee pain. Post-procedure Diagnosis:: Same. Indications for Procedure:: Patient is a very pleasant 85-year-old male who comes to our clinic today for a right infrapatellar nerve block. Patient describes right knee pain as constant, dull, aching. He rates his pain 8/10. Procedure Details:: Details of the procedure explained to the patient. The patient taken procedure and placed in the sitting position. The over the right knee was cleaned using chlorhexidine as a cleansing solution. Using a 25-gauge inch and half needle the right infrapatellar branch of the saphenous nerve was accessed with ease. After negative aspiration 4 cc of 1% lidocaine +4 cc of 0.25% Marcaine and 10 mg of dexamethasone was injected incrementally. Patient tolerated procedure without difficulty. Dental complications. Plan and Disposition:: Patient was discharged without incident.
== END 2025-06-06 11:30 | disposition home or self-care (01) ==
PROVIDERS: PCP Family Medicine; Visit Provider Nurse Anesthetist, Certified Registered
DX: G89.29 Other chronic pain (principal); M25.561 Pain in right knee; M17.11 Unilateral primary osteoarthritis, right knee; I10 Essential (primary) hypertension; Z86.73 Personal history of transient ischemic attack (TIA), and cerebral infarction without residual deficits; K21.9 Gastro-esophageal reflux disease without esophagitis; Z79.899 Other long term (current) drug therapy
CPT/HCPCS: 64447; J0665; J1100; J2003

== ENCOUNTER 2025-07-04 10:35 | Day surgery (SDC) | payer MEDICARE, SELFPAY ==
[2025-07-04 10:49] VITALS: BP 181/84; PULSE 71; RESP 16; O2SAT 99; BMI 19.8
[2025-07-04 10:56] VITALS: BP 166/81; PULSE 67; RESP 18; O2SAT 98
[2025-07-04] MEDS: LIDOCAINE 1% 5ML PF VIAL 5 ML (10:57)
[2025-07-04] MEDS: BUPIVACAINE 0.25% 10ML INJ 25 MG IJ (10:57)
[2025-07-04 11:02] VITALS: BP 166/81; PULSE 64; RESP 18; O2SAT 98
--- NOTE | 2025-07-04 11:03 | EXP.PAIN.PRO ---
Procedure Date: 07/04/25 Time: 10:50 Anesthesiologist:: Mehran James CRNA Complications:: None Pre-procedure Diagnosis:: Degenerative disc lumbar spine multilevels. Lumbar radiculopathy. Lumbar spondylosis. Multilevel lumbar facet arthropathy. Post-procedure Diagnosis:: Same. Indications for Procedure:: Patient is a very pleasant 85-year-old male who comes to our clinic today for round 2 of lumbar medial branch blocks/facet injection at the bilateral L4-5, L5-S1 level. Patient describes low lumbar back pain as constant, dull, aching. Patient also reports difficulty with lumbar flexion, extension, left and right rotation. He rates his pain 7/10. He reports responding very well to around one of the same injection several weeks ago. Procedure Details:: Informed consent was obtained and the risk and benefits of the procedure was explained to the patient. Patient was taken to the procedure room where noninvasive monitors were placed, including noninvasive blood pressure cuff as well as pulse oximeter. The area over the lumbar spine was cleansed using chlorhexidine as a cleansing solution. I anesthetized the skin and subcutaneous tissues with 1% Lidocaine. I placed 22-gauge spinal needles into the facet joint/ medial branches of L4-L5, and L5-S1 bilaterally. Needle placement was confirmed with fluoroscopy. After confirmation of needle placement, each site was injected with 1 mL of 1% lidocaine and 0.25 % Marcaine 1 mL. Patient tolerated the procedure without difficulty. There were no complications. Plan and Disposition:: Patient was discharged without incident.
[2025-07-04 11:10] VITALS: BP 190/78; PULSE 78; RESP 18; O2SAT 100
== END 2025-07-04 11:10 | disposition home or self-care (01) ==
PROVIDERS: PCP Family Medicine; Visit Provider Nurse Anesthetist, Certified Registered
DX: M47.816 Spondylosis without myelopathy or radiculopathy, lumbar region (principal); M51.369 Other intervertebral disc degeneration, lumbar region without mention of lumbar back pain or lower extremity pain; Z86.73 Personal history of transient ischemic attack (TIA), and cerebral infarction without residual deficits; I10 Essential (primary) hypertension; Z90.49 Acquired absence of other specified parts of digestive tract; Z98.890 Other specified postprocedural states; Z95.2 Presence of prosthetic heart valve
CPT/HCPCS: 64493; 64494; J0665; J2003

== ENCOUNTER 2025-07-06 09:41 | Outpatient (CLI) | payer MEDICARE, SELFPAY ==
--- NOTE | 2025-07-06 | CA_ITS ---
APPROVED REPORT Exam: Pharmacologic Technologist: Henny Saucedo Ht: 5 ft 8 in Wt: 130 lbs BSA: 1.70 m2 HR: 64 bpm BP: 169/89 mmHg Medical History Medications: Atorvastatin, Duloxetine, Finesteride, Gabapentin, Lisinopril, Omeprazole Magnesium, Tamsulosin. Allergies: NKA Stress Test Details Test: Lexiscan Reason for pharmacologic stress test: physical limitation. HR Resting HR: 64 bpm Max Heart Rate (APMHR): 134.230473 bpm Max HR Achieved: 90 bpm Target HR (85% APMHR): 113.008820 bpm % of APMHR: 67.16 Recovery HR: 78 bpm BP Resting BP: 169.0/89.0 mmHg Max BP: 187.0/89.0 mmHg Recovery BP: 187.0/89.0 mmHg ECG Resting ECG: Sinus Rhythm Clinical Stress Symptoms: Abdominal discomfort Stress ECG Conclusion Lungs CTA prior to test start. Symptoms: Abdominal pain. Arrhythmias/Ectopy: PAC. ST-T Changes: 0.5mm downsloping ST segment depression V4 & 6. Conclusion: Nondiagnostic ECG/Lexiscan. Electronically signed by : Lolis Boyce MD 07/10/2025 13:21:33
--- NOTE | 2025-07-06 09:44 | CA_ITS ---
APPROVED REPORT EXAM: Comprehensive 2D, Doppler, and color-flow Echocardiogram Transactional Paralegal: Elisabet Ellis RDCS Ht: 5 ft 8 in Wt: 130lbs BSA: 1.70 BP: 145/85 mmHg Indications: Chest pain 2D Dimensions LA Volume 69.70 mL LA Volume Index 41.00 mL/m2 (M/F) 16-34 M-Mode Dimensions RVDd 1.72 cm (0.9-2.6) LA Diam 4.08 cm (1.9-4.0) LVDd 4.16 cm (3.5-5.7) LVDs 3.03 cm (3.5-5.7) IVSd 1.47 cm (0.6-1.1) PWd 0.81 cm (0.6-1.1) EF (Teich) 53.30% FS 27.20% EDV (Teich) 76.80 mL ESV (Teich) 35.90 mL LV Diastology E Decel Time 353 (160-240 msec) E/A Ratio 0.7 Aortic Valve AO VTI 140.8 (18-25 cm) Mitral Valve MV E Max Steven. 76.0 (40-130 cm/s) MV A Velocity 113.0 (40-130 cm/s) E/A Ratio 0.68 MV PHT 103.0 ms Tricuspid Valve TR P. Velocity 251.00 cm/s RAP Estimate 10.00 mmHg RVSP 35.20 mmHg Left Ventricle The left ventricle is normal size. Left ventricular systolic function is low-normal. There is increased left ventricular wall thickness. The septum is asynchronous. Transmitral Doppler flow pattern suggests impaired LV relaxation. LVEF is 50% Right Ventricle The right ventricle is mildly dilated. The right ventricular systolic function is normal. Atria Left atrium is moderately dilated. Right atrium is moderately dilated. There is no color Doppler evidence of interatrial shunt. Aortic Valve The aortic valve is mildly thickened. There is no hemodynamically significant aortic valvular stenosis. Mild aortic regurgitation is present. Mitral Valve The mitral valve is mildly thickened. No evidence of mitral valve stenosis. Mild mitral regurgitation is present. Tricuspid Valve The tricuspid valve leaflets are thin and pliable. Mild tricuspid regurgitation. RVSP is 30-35 mmHg. Pulmonic Valve The pulmonary valve is grossly normal in structure. Mild pulmonic valve regurgitation is present. Great Vessels The aortic root is normal in size. IVC is normal in size and collapses >50% with inspiration. Pericardium There is no pericardial effusion. Other Information Study Quality: Technically Difficult Conclusion Low-normal LV systolic function (LVEF 50%). Asynchronous septum. Mild RV dilation. Biatrial dilation. Mild AI, mild MR, mild TR, mild PI. Electronically signed by : Lolis Boyce MD 07/07/2025 17:43:02
--- NOTE | 2025-07-06 10:27 | NM_ITS ---
APPROVED REPORT Exam: Nuclear Stress Test Indication: Fatigue, Pre op, HTN, High cholesterol, Family history Patient Location: Outpatient Stress Tech: Henny Byrne MS Tech:Caroline Feliz ROSINAT RT(R)(N) Ht: 5 ft 8 in Wt: 124 lbs HR: 63 bpm BP: 169/89 mmHg BSA: 1.67 m2 TID: 0.95 BMI: 18.8 History: Fatigue, Pre op, HTN, High cholesterol, Family history Procedure: Patient received 0.4 mg of intravenous Lexiscan, resting heart rate 63 bpm, resting blood pressure 169/89 mmHg, with Lexiscan maximum heart rate achieved was 92 bpm which is % of the maximum predicted heart rate and blood pressure was 187/89 mmHg. With Lexiscan, patient denied any complaint of chest pain. Cardiac Stress and Resting SPECT Images: Cardiac Stress and Resting SPECT images were obtained using technetium 99m Myoview 30.2 mCi stress and 10.22 mCi at rest. Patient could not lie on his abdomen. Therefore, prone stress imaging could not be performed. This may affect diagnostic interpretation of the study findings. Resting stress imaging in supine positions demonstrate a small sized, severe, fixed perfusion defect in the apical LV wall. No evidence of reversible ischemia. Gated imaging demonstrates low-normal global LV systolic function. LVEF is calculated at 53%. Conclusion: small sized, severe, fixed perfusion defect in the apical LV wall. No evidence of reversible ischemia. Gated imaging demonstrates low-normal global LV systolic function. LVEF is calculated at 53%. Electronically signed by : Lolis Boyce MD 07/06/2025 15:31:51
[2025-07-06 12:00] VITALS: BP 169/89; PULSE 64; RESP 16
[2025-07-06] MEDS: ISOTOPE MYOVIEW (PER STUDY) 1 DOSE IV (12:39)
[2025-07-06] MEDS: SODIUM CHLORIDE 0.9% 10ML SYR (RAD ONLY) 10 ML IV ×2 (12:40)
== END 2025-07-06 23:59 | disposition home or self-care (01) ==
PROVIDERS: PCP Family Medicine; Visit Provider Internal Medicine Cardiovascular Disease
DX: R07.9 Chest pain, unspecified (principal)
CPT/HCPCS: 78452; 93017; 93018; 93306; A9502; J2785

== ENCOUNTER 2025-07-11 04:12 | Emergency (ER) | payer MEDICARE, SELFPAY ==
--- OUTSIDE RECORDS SUMMARY | 2018-07-15 06:46 | XMS_ITS | Continuity of Care Document ---
Author Name [facility] Organization [facility] Care Team Providers Care Finishing Frame Runner Name Role Phone [facility] Unavailable Unavailable Problems Combined list of problems from Department of [facility] and [facility] facilities. It does not include entries that were removed or entered in error. Problem Status Onset Date Problem Type Date of Resolution Comments Source Benign hypertension Active Condition [facility] BPH - Benign prostatic hypertrophy Active Condition [facility] Carcinoma of colon Active Condition N 2015 Entered By: MELISSA AGUILLON Comment: HX OF COLON RESECTION [facility] Hyperlipidemia Active Condition [place] [facility] Medications Combined list of outpatient medications from Department of [facility] and [facility] facilities.Medications provided include 1) outpatient medications from the last 15 months, and 2) patient-reported medications. Medication Details Route Status Indication(s) Patie nt Instructions Prescription Expires Prescription Number Last Dispense Date Ordering Provider Order Date Order Qty Source ATORVASTATI N CA 40MG TAB TAKE ONE-HALF TABLET BY MOUTH DAILY ORAL ACTIVE MIRACLE CARSON IN 2017 [place] [facility] FISH OIL 1000MG (500MG DHA/EPA) CAP,ORAL TAKE 2 CAPSULES BY MOUTH DAILY ORAL ACTIVE KAMARI AGUILLON 2015 [place] [facility] LISINOPRIL 20MG TAB TAKE ONE-HALF TABLET BY MOUTH TWICE A DAY ORAL ACTIVE MIRACLE CARSON IN C 2017 [place] [facility] METOPROLOL SUCCINATE 25MG TAB,SA TAKE ONE-HALF TABLET BY MOUTH DAILY ORAL ACTIVE MIRACLE CARSON IN 2017 [place] [facility] Immunizations Combined list of available immunizations from the Department of [facility] and [facility] facilities. Immunization Series Date Given Administered By Site Reaction Lot Number CVX Code Drug Laboratory Inspector Status Comments Source TDAP (HISTORICAL) 2013 115 complet ed [place] [facility] Social History Combined list of available smoking, tobacco, and other social history from Department of Defense and Veterans Affairs facilities. Social History Type Response Date Comment [facility] e Tobacco smoking status [facility] VA-TOBACCO NEVER USED 07/15[facility]2018 [facility] History of tobacco use V9 LIFETIME NON-USER OF TOBACCO 06/26/2017 [facility] History of tobacco use V9 LIFETIME NON-USER OF TOBACCO 06/05/2016 [facility] History of tobacco use V9 LIFETIME NON-USER OF TOBACCO 05/30/2015 [facility]
--- OUTSIDE RECORDS SUMMARY | 2025-07-04 13:30 | XMS_ITS | Encounter Summary ---
Author Organization [employer] ([place], [place], [place], [place], [place]) Address [address] [place] [address] Care Team Providers Care Stove Carriage Operator Name Role Phone Robert Batista MD Primary Care Provider [phone] Reason for Referral * Nuclear Medicine (Routine) - Authorized Specialty Diagnoses / Procedures Referred By Contac t Referred To Contact Radiology Diagnoses Chest pain Procedures NM myocardial perfusion SPECT,pharm(LEXISCAN) Carlitos Merrill MD [address] [place] [address] Phone: tel: fax: Referral ID Status Reason Start Date Expiration Date Visits Requested Visits Authorized [id number] Authorized Continuity of Care 07/04/2025 07/04/2026 5 4 * Echocardiography (Routine) - Authorized Specialty Diagnoses / Procedures Referred By Contac t Referred To Contact Diagnoses Chest pain Procedures ECHO COMPLETE (DOPPLER / COLOR) W OR WO CONTRAST Carlitos Merrill MD [address] [place] [address] Phone: tel: fax: Referral ID Status Reason Start Date Expiration Date Visits Requested Visits Authorized [id number] Authorized Continuity of Care 07/04/2025 07/04/2026 1 1 Reason for Visit * Reason Comments Follow-up Annual Follow up and cardiac clearance Encounter Details Date Type Department Care Team (Late st Contact Info) Description 07/04/2025 1:30 PM EST Office Visit [facility] [address] [place] [address] Carlitos Merrill MD [address] [place] [address] [address] [place] [address] Aortic valve stenosis, etiology of cardiac valve disease unspecified (Primary Dx); Chest pain Social History Tobacco Use Types Packs/Day Years Used Date Smoking Tobacco: Never Smokeless Tobacco: Never Tobacco Cessation:Counseling Given: Not Answered Alcohol Use Standard Drinks/Week Comments Not Currently 0 (1 standard drink = 0.6 oz pur e alcohol) Family and Community Support Answer Dev e Recorded Help with Day to Day Activities Not on file 02/17/2024 Feeling Lonely or Isolated Not on file 02/16 Educational Attainment Answer Date Derek rded Speak language other than [place] at home Not on file 02/17/2024 Want help with school or training Not on file 02/17/2024 Substance Use Answer Date Recorded Used prescription meds for non-medical reasons N ot on file 02/17/2024 Used illegal drugs past 12 months Not on file 02/17/2024 Sex and Gender Information Value Date Recorded Sex Assigned at Not on file Legal Sex Male 1:13 PM CDT Gender Identity Not on file Sexual Orientation Not on file documented as of this encounter Last Filed Vital Signs Vital Sign Reading Time Taken Comments Blood Pressure 130/60 07/04/2025 1:38 PM EST Pulse 73 07/04/2025 1:38 PM EST Temperature - - Respiratory Rate - - Oxygen Saturation - - Inhaled Oxygen Concentration - - Weight 56.3 kg (124 lb 3.2 oz) 07/04/2025 1:38 P M EST Height 172.7 cm (5' 8 ) 07/04/2025 1:38 PM EST Body Mass Index 18.88 07/04/2025 1:38 PM EST documented in this encounter Progress Notes * Carlitos Merrill MD - 07/04/2025 1:30 PM EST Images from the original note were not included. [facility] [address] [place] [phone] Name: Francesco Adorno : 1940 PCP: Robert Batista MD Visit date: 07/04/2025 CHIEF COMPLAINT - s/p TAVR - Preoperative cardiac risk assessment HPI is in the clinic today for a follow up. The patients last visit was in February of 2022. Thepatient reports feeling very fatigue and lethargic the past few months. 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 Also has had some chall enges with colon cancer related complications and may need down the road a colostomy placement and a resection. 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 The patient reports no orthopnea, PND, palpitations, angina, or claudications. The patient has had no syncope or near syncope. The patients has been compliantwith the current medications regimen. Patient is planning to have prostate surgery performed in near future, has been referred for cardiac preoperative risk assessment regarding this. REVIEW OF SYSTEMS 14 of 14 systems negative accept per HPI MEDICAL HISTORY Past Medical History: Diagnosis Date Cancer (HCC) osteo circoma Carotid bruit 03/25/2024 HTN (hypertension) 03/25/2024 Mixed hyperlipidemia 03/25/2024 Non-ischemic cardiomyopathy (HCC) 03/25/2024 Past Surgical History: Procedure Laterality Date AORTIC VALVE REPLACEMENT 12/27/2020 TAVR CHOLECYSTECTOMY INGUINAL HERNIA REPAIR STERNOTOMY 12/27/2020 Repair of LV tear emergency median Social History Tobacco Use Smoking status: Never Smokeless tobacco: Never Substance Use Topics Alcohol use: Not Currently Drug use: Never No Known Allergies Outpatient Medications Marked as Taking for the 07/04/25 encounter (Office Visit) with Carlitos Merrill MD Medication Sig Dispense Refill diphenoxylate-atropine (LOMOTIL) 2.5-0.025 mg per tablet Take 1 tablet by mouth every 4 (four) hours. Max Daily Amount: 6 tablets (Patient taking differently: Take 1 tablet by mouth as needed.) gabapentin (NEURONTIN) 300 MG capsule Take 3 capsules (900 mg total) by mouth as directed Take 3 capsules by mouth every morning and 4 capsules at bedtime.. lisinopriL (PRINIVIL,ZESTRIL) 10 MG tablet Take 1 tablet (10 mg total) by mouth daily. PHYSICAL EXAM Vitals: 07/04/25 1338 BP: 130/60 Pulse: 73 Physical Exam Vitals reviewed. Constitutional: Appearance: He is normal weight. Eyes: Conjunctiva/sclera: Conjunctivae normal. Pupils: Pupils are equal, round, and reactive to light. Cardiovascular: Rate and Rhythm: Normal rate. Pulses: Normal pulses. Pulmonary: Effort: Pulmonary effort is normal. Breath sounds: Normal breath sounds. Abdominal: General: Abdomen is flat. Neurological: General: No focal deficit present. Mental Status: He is alert and oriented to person, place, and time. Psychiatric: Mood and Affect: Mood normal. CARDIAC AND OTHER DIAGNOSTIC STUDIES No specialty comments available. No results found for this or any previous visit from the past 365 days. ASSESSMENT AND PLAN 85 y.o. male with history significant for: # TAVR Hx # HTN # Pre-operative clearance - Patient seen and examined, EKG reviewed which shows normal sinus rhythm with ST changes consistent with LVH. - Patient has limited functional ability, does not perform much activity, METs cannot be assessed. Due to these reasons we will perform further testing to appropriately restratify for upcoming prostate surgery. - Echocardiogram, Alicia scan. If patient's testing is within normal limits may proceed for prostate surgery as moderate risk patient. - Patient will follow-up with myself on annual basis. Samreen disclaimer: Part of this encounter note is an electronic manager requirements/translation of spoken language to printed text. The electronic translation of spoken language may permit erroneous, or at times, nonsensicalwords or phrases to be inadvertently transcribed; Although I have reviewed the note for such errors, some may still exist. Thorough review of all available medical records was done prior to examination today. Follow-up: 1 or sooner if needed Electronically signed by: Carlitos Merrill MD, 07/04/2025 ORK PRICING CONSULTANT documented in this encounter Miscellaneous Notes * Addendum Note - Melba Ortiz CMA - 07/04/2025 1:30 PM ESTAddended by: MELBA ORTIZ on: 07/06/2025 05:16 PM Modules accepted: Orders ORK PRICING CONSULTANT documented in this encounter Plan of Treatment Scheduled Orders Name Type Priority Associated Diagnoses Orde r Schedule ECHO COMPLETE (DOPPLER / COLOR) W OR WO CONTRAST Echocardiography Routine Chest pain Expected: 07/04/2025, Expires: 08/04/2025 NM myocardial perfusion SPECT,pharm(LEXISCAN) Imaging Routine Chest pain Expected: 07/04/2025, Expires: 08/04/2026 ECG 12 lead ECG Routine Chest pain Ordered: 07/06/2025 documented as of this encounter Goals Goal Patient Goal Type Associated Problems Recent Progress Patient-Stated? Author Autogenerat ed Goal Care Plan Autogenerated Problem No MicNimisha documented as of this encounter Visit Diagnoses Diagnosis Aortic valve stenosis, etiology of cardiac valve disease unspecified- Primary Chest pain Unspecified chest pain documented in this encounter Additional Health Concerns Active Problems Noted Date Diagnosed Date Autogenerated Problem 06/29/2025 documented as of this encounter Care Teams Stove Carriage Operator Relationship Specialty Start Date End Date Robert Batista MD [address], [place] [address] PCP - General Family Medicine 07/04/25 documented as of this encounter
--- OUTSIDE RECORDS SUMMARY | 2025-07-10 06:25 | XMS_ITS | Encounter Summary ---
Author Organization [employer] ([place], [place], [place], [place], [place]) Address [address] [place] [address] Care Team Providers Care Human Resources Hr Representative Name Role Phone Robert Batista MD Primary Care Provider [phone] Reason for Referral * Hospital - Inpatient (Routine) - New Request Specialty Diagnoses / Procedures Referred By Luis Fernando torre Referred To Contact Diagnoses BPH with obstruction/lower urinary tract symptoms Procedures [place] [address] [place] [address] [address] [place] [address] Phone: tel: fax: Referral ID Status Reason Start Date Expiration Date V isits Requested Visits Authorized [id number] New Request 07/10/2025 07/10/2026 1 1 Reason for Visit * Auth/Cert (Routine) Specialty Diagnoses / Procedures Referred By Luis Fernando torre Referred To Contact Diagnoses Enlarged prostate with urinary obstruction SEE PRIMARY DX Procedures [place] LASER VAPORIZATION OF PROSTATE FOR URINE FLOW CYSTOSCOPY,LASER VAPORIZATION PROSTATE GREENLIGHT [facility] Surgery Department [address] [place] [id number] Phone: tel: fax: [facility] Surgery Department [address] [place] [address] Phone: tel: fax: Referral ID Status Reason Start Date Expiration Date Visits Re quested Visits Authorized [id number] 1 1 Encounter Details Date Type Department Care Team (Late st Contact Info) Description 07/10/2025 6:25 AM EST - 07/10/2025 10:50 AM EST Hospital Encounter [facility] Surgery Department [address] [place] [address] Ayden Doll Jr., MD [address] [facility] [address] [place] [address] BPH with obstruction/lower urinary tract symptoms (Primary Dx) Discharge Disposition: Home or Self Care Social History Tobacco Use Types Packs/Day Years Used Date Smoking Tobacco: Never Smokeless Tobacco: Never Alcohol Use Standard Drinks/Week Comments Not Currently 0 (1 standard drink = 0.6 oz pur e alcohol) Family and Community Support Answer Dev e Recorded Help with Day to Day Activities Not on file 02/17/2024 Feeling Lonely or Isolated Not on file 02/16 Educational Attainment Answer Date Derek rded Speak language other than Libyan at home Not on file 02/17/2024 Want [...] Sign Reading Time Taken Comments Blood Pressure 174/79 07/10/2025 10:45 AM EST Pulse 64 07/10/2025 10:45 AM EST Temperature 36.6 C (97.9 F) 07/10/2025 10:05 AM EST Respiratory Rate 16 07/10/2025 10:45 AM EST Oxygen Saturation 99% 07/10/2025 10:45 AM EST Inhaled Oxygen Concentration - - Weight 57 kg (125 lb 9.6 oz) 07/10/2025 7:14 AM EST Height 172.7 cm (5' 8 ) 07/10/2025 7:14 AM EST Body Mass Index 19.1 07/10/2025 7:14 AM EST documented in this encounter Discharge Instructions * Attachments The following attachments cannot be sent through Care Everywhere. * General Anesthesia Adult Care After (Libyan) * Green Light Laser Prostate Treatment Care After (Libyan) * Indwelling Urinary Catheter Care Adult Vugj-ns-Aoio (Libyan) documented in this encounter Medications at Time of Discharge atorvastatin (LIPITOR) 40 MG tablet Take 1 tablet (40 mg total) by mouth nightly. docusate sodium (COLACE) 100 MG capsule Take 1 capsule (100 mg total) by mouth 2 (two) times daily for 10 days. 20 capsule 07/10/2025 07/20/2025 doxycycline hyclate (VIBRA-TABS) 100 MG tablet Take 1 tablet (100 mg total) by mouth 2 (two) times daily. 6 tablet 07/10/2025 gabapentin (NEURONTIN) 300 MG capsule Take 3 capsules (900 mg total) by mouth as directed Take 3 capsules by mouth every morning and 4 capsules at bedtime.. lisinopriL (PRINIVIL,ZESTRI L) 10 MG tablet Take 1 tablet (10 mg total) by mouth daily. omeprazole (PriLOSEC) 20 MG capsule Take 1 capsule (20 mg total) by mouth daily. oxyCODONE-acetam inophen (PERCOCET) 7.5-325 mg per tablet Take 1 tablet by mouth every 6 (six) hours as needed for pain for up to 10 days. Max Daily Amount: 4 tablets 30 tablet 07/10/2025 07/20/2025 documented as of this encounter H&P Notes * Ayden Doll Jr., MD - 07/10/2025 7:13 AM EST H&P reviewed. The patient was examined and there are no changes to the H&P. N TILE PRESS OPERATOR Source Note - Ayden Doll Jr., MD - 07/10/2025 6:45 AM EST documented in this encounter OR Notes * Op Note - Ayden Doll Jr., MD - 07/10/2025 9:31 AM EST Date: 07/10/2025 Procedures: GREENLIGHT LASER VAPORIZATION OF PROSTATE Diagnosis: Pre-Op Diagnosis Codes: * Enlarged prostate with urinary obstruction [N40.1, N13.8] Post-op Diagnosis * Enlarged prostate with urinary obstruction [N40.1, N13.8] Indications: Francesco Adorno is an 85 y.o. male with significant BPH regrowth he is opted for surgical therapy having failed medical therapy . The risks, benefits, and alternatives of the above procedure were discussed and the patient has elected to proceed. Surgeons: * Ayden Doll Jr. - Primary Findings: BPH regrowth with significant regrowth on the right.Side of the prostatic urethra Procedure Details: After consent is obtained the patient is brought to the operating suite Riis placed in supine position. Anesthesia was induced. He sterilely prepped and draped in normal fashion after carefully being placed in dorsolithotomy position padding all pressure points. Our cystoscope was inserted and patient urethra and bladder atraumatically. Of note he was noted to have a large amount of BPH regrowth emanating from the right side of the prostatic urethra going over the midline andkissing with the left aspect of the prostatic urethra. Scope was removed and laser scope was placed. Began the operation by performing laser vaporization at the 6 o'clock position bringing it back tothe to the verumontanum but not distally. We then paid particular attention to the right lateral lobe which was taken down completely using the laser vaporization. We did laser very pronation on the left side as well to a lesser degree. We had a very nice TUR defect. Minimal bleeding. We did not vaporize distal to the verumontanum. There was no injury to the trigone. Hemostasis was excellent. 22 F rench two-way Spence catheter was placed. Anesthesia was reversed. Patient was taken to the recoveryroom in stable condition. The patient was seen in the preoperative area. The site of surgery was properly noted/marked if necessary per policy. The patient has been actively warmed in preoperative area. Preoperative antibiotics have been ordered and given within 1 hours of incision. Venous thrombosis prophylaxis have been ordered including bilateral sequential compression devices Anesthesia: General Estimated Blood Loss: minimal Total IV Fluids: Greater than 100 mL Drains: Urethral Catheter Latex 22 Fr. (Active) Specimens: Specimens (From admission, onward) None Complications: None * No complications entered in OR log * Disposition: PACU - hemodynamically stable. Condition: stable Attending Attestation: I performed the procedure. N TILE PRESS OPERATOR documented in this encounter Plan of Treatment Not on file documented as of this encounter Goals Goal Patient Goal Type Associated Problems Recent Progress Patient-Stated? Author Autogenerat ed Goal Care Plan Autogenerated Problem No Nimisha Haile documented as of this encounter Procedures Procedure Name Priority Date/Time Associated Diagnosis Comments [place] LASER VAPORIZATION OF PROSTATE FOR URINE FLOW 07/10/2025 8:46 AM EST Enlarged prostate with urinary obstruction Case Notes TRISH CONF [id number] SPOKE TO FRANNY NOVA GLUCOSE POC Routine 07/10/2025 6:43 AM EST documented in this encounter Results * Glucose, Nova Meter (07/10/2025 6:43 AM EST) POC-GLUCOSE 103 70 - 110 mg/dL 07/10/2025 6:45 AM EST [facility] Comment:In the event of poor peripheral blood flow, venous or arterial blood should be used due to the potential of erroneous results. Truck Shop Mechanic [id number] 07/10/2025 6:45 AM EST [facility] Blood WHOLE BLOOD / Unknown 07/10/2025 6:43 AM EST 07/10/2025 6:45 AM EST us Ayden Doll Jr., MD POINT OF CARE TEST ORD ERABLES Final Result [facility] [address] [phone] documented in this encounter Visit Diagnoses Diagnosis BPH with obstruction/lower urinary tract symptoms- Primary CVA (cerebral vascular accident) (HCC) Unspecified cerebral artery occlusion with cerebral infarction documented in this encounter Administered Medications Inactive Administered Medications - up to 3 most recent administrations Medication Order MAR Action Action Date Dose Rate Site electrolyte-R (NORMOSOL-R) infusion intravenous, Continuous, Starting on 07/10/25 at 0800, Pre-op New Bag 07/10/2025 7:42 AM EST 1,000 mLs famotidine (PEPCID) tablet 20 mg 20 mg Once, oral, On Thu07/10/25 at 0800, For 1 dose, Pharmacist to renally dose if CrCl is less than 50 mL/min or on CRRT., Pre-op Given 07/10/2025 7:43 AM EST 20 mg fentaNYL PF (SUBLIMAZE) injection 25 mcg 25 mcg Every 5 min PRN, intravenous, severe pain (7-10) use first line, moderate pain (4-6) use first line, First Line for pain moderate or greater, Starting on Thu07/10/25 at 0916, For 4 doses, Maximum cumulative dose 100 mcg. If maximum dose is reached, proceed to 2nd Line agent., PACU HYDROmorphone (DILAUDID) injection 0.5 mg 0.5 mg Every 10 min PRN, intravenous, severe pain (7-10), 2nd Line agent after max dose Fentanyl given if ordered., Starting on Thu07/10/25 at 0916, For 4 doses, Maximum cumulative dose 2 mg, PACU, PACU ondansetron (ZOFRAN) injection 4 mg 4 mg Every 15 min PRN, intravenous, nausea, Starting on Thu07/10/25 at 0916, For 2 doses, 1st line for nausea For IV push, give over 2 - 5 minutes., PACU oxyCODONE (ROXICODONE) immediate release tablet 5 mg 5 mg Once as needed, oral, moderate pain (4-6), severe pain (7-10), For patients going home if they have not received hydromorphone or morphine., Starting on Thu07/10/25 at 0916, For 1 dose, Look-alike/Sound-alike medication, PACU documented in this encounter Active and Recently Administered Medications Times are shown in EST. Scheduled Medication Order 07/08/2025 07/09/2025 07/10/2025 cefOXitin (MEFOXIN) IVPB 2 g in dextrose 5 % 50 mL (premix) (COMPLETED) 2 g Every 8 hours scheduled, intravenous, at 100 mL/hr, First dose on Thu07/10/25 at 0730, For 1 dose, Pre-op, Please choose an indication: Surgical Prophylaxis 0743 (Handoff - Prov ider: Julieta Davis-[place], RN - Comment: OR Nurse)0881 (Given - Provider: Catalina Gilmore CRNA) famotidine (PEPCID) tablet 20 mg (COMPLETED) 20 mg Once, oral, On Thu07/10/25 at 0800, For 1 dose, Pharmacist to renally dose if CrCl is less than 50 mL/min or on CRRT., Pre-op 0743 (Given - Provid er: Julieta Watts RN) Continuous Medication Order 07/08/2025 07/09/2025 07/10/2025 electrolyte-R (NORMOSOL-R) infusion intravenous, Continuous, Starting on Thu07/10/25 at 0800, Pre-op 0742 (New Bag - Prov ider: Julieta Watts RN) PRN Medication Order 07/08/2025 07/09/2025 07/10/2025 fentaNYL PF (SUBLIMAZE) injection 25 mcg 25 mcg Every 5 min PRN, intravenous, severe pain (7-10) use first line, moderate pain (4-6) use first line, First Line for pain moderate or greater, Starting on Thu07/10/25 at 0916, For 4 doses, Maximum cumulative dose 100 mcg. If maximum dose is reached, proceed to 2nd Line agent., PACU HYDROmorphone (DILAUDID) injection 0.5 mg 0.5 mg Every 10 min PRN, intravenous, severe pain (7-10), 2nd Line agent after max dose Fentanyl given if ordered., Starting on Thu07/10/25 at 0916, For 4 doses, Maximum cumulative dose 2 mg, PACU, PACU lidocaine (UROJET, GLYDO) 2 % jelly (CANCELED) As needed, Starting on Thu07/10/25 at 0905, Intra-op 09 (Given - Provid er: Ayden Doll Jr., MD) ondansetron (ZOFRAN) injection 4 mg 4 mg Every 15 min PRN, intravenous, nausea, Starting on Thu07/10/25 at 0916, For 2 doses, 1st line for nausea For IV push, give over 2 - 5 minutes., PACU oxyCODONE (ROXICODONE) immediate release tablet 5 mg 5 mg Once as needed, oral, moderate pain (4-6), severe pain (7-10), For patients going home if they have not received hydromorphone or morphine., Starting on Thu07/10/25 at 0916, For 1 dose, Look-alike/Sound-alike medication, PACU documented in this encounter Additional Health Concerns Active Problems Noted Date Diagnosed Date Autogenerated Problem 06/29/2025 documented as of this encounter Care Teams Human Resources Hr Representative Relationship Specialty Start Date End Date Robert Batista MD [address] [place] [address] PCP - General Family Medicine 07/04/25 documented as of this encounter
--- OUTSIDE RECORDS SUMMARY | 2025-07-10 08:48 | XMS_ITS | Encounter Summary ---
Author Organization [employer] ([place], [place], [place], [place], [place]) Address [address] [place] [address] Care Team Providers Care Vegetable Trimmer Name Role Phone Robert Batista MD Primary Care Provider [phone] Reason for Visit * Auth/Cert (Routine) Specialty Diagnoses / Procedures Referred By Contac t Referred To Contact Diagnoses Enlarged prostate with urinary obstruction SEE PRIMARY DX Procedures [place] LASER VAPORIZATION OF PROSTATE FOR URINE FLOW CYSTOSCOPY,LASER VAPORIZATION PROSTATE GREENLIGHT [facility] Surgery Department [address] [place] [address] Phone: tel: fax: [facility] Surgery Department [address] [place] [address] Phone: tel: fax: Referral ID Status Reason Start Date Expiration Date Visits Re quested Visits Authorized [id number] 1 1 Encounter Details Date Type Department Care Team (Late st Contact Info) Description 07/10/2025 8:48 AM EST Anesthesia Event [facility] Surgery Department [address] [place] [address] Catalina Gilmore CRNA [address] [place] [address] Mike Avelar MD [address] [place] [address] Anesthesia Record Procedure Summary Procedure Name Responsible Anesthesiologist Anesthesia Start Time Anesthesia Stop Time GREENLIGHT LASER VAPORIZATION OF PROSTATE (Urethra) Catalina Gilmore, BILLING ADJUDICATOR 07/10/25 0848 07/10/25 0930 Events Date Time Event Comment 07/10/2025 0756 0848 An Start Patient identif ied and chart reviewed. 0848 An Start Data Anesthesia mac kailey and monitors checked. 0848 Pre-Induction Eval FDA anest hesia machine pre-use checkout completed. Patient status reassessed prior to start of anesthesia care. 0852 An Induction 0853 An Intubation 0853 Anesthesia Ready 0923 An Extubation 0923 an stop data 0930 An Stop 0931 Handoff to Receiving I compl eted my handoff to the receiving clinician during which we: 1. Identified the patient. 2. Identified the responsible provider. 3. Reviewed the pertinent medical history. 4. Discussed the surgical course. 5. Reviewed intra-op anesthesia management and issues during anesthesia. 6. Set expectations for post-procedure period. 7. Allowed opportunity for questions and acknowledgement of understanding. Meds Name Total fentaNYL (SUBLIMAZE) injection 25 mcg lidocaine (XYLOCAINE) injection 2% 60 mg propofol (DIPRIVAN) injection 10 mg/mL b olus 100 mg dexamethasone (PF) injection 10 mg/mL 4 mg ondansetron (ZOFRAN) injection vial 4 mg cefOXitin (MEFOXIN) IVPB 2 g in dextrose 5 % 50 mL (premix) 2 g lactated ringers (LR) infusion 0 mL * Agents Name O2 N2O Air SEVOFLURANE * Blood No blood administrations on file. Lines, Drains, and Airways Type Details Placement Removal Urethral Catheter Placement Date: 07/10/25; Placement Time: 911; Inserted by: Ayden Doll Jr., MD; Type: Latex; Size: 22 Fr.; Balloon Size: 5 mL; Urine Returned: Yes 07/10/25911 by Venkatesh Car RN Peripheral IV Placement Date: 07/10/25; Placement Time: 741; Size: 20 G; Orientation: Anterior, Left, Proximal; Location: Forearm; Site Prep: Alcohol; Inserted by: Lesley Rhoades RN; Removal Date: 07/10/25; Removal Time: 1045; Removal Reason: (patient discharged) 07/10/25 0742 by Julieta Rhoades RN 07/10/25 1045 by Lesli Cook RN ETT Placement Date 07/10/25; Placement Time 0853 (created via procedure documentation); Removal Date 07/10/25; Removal Time 92207/10/25 0853 by Catalina Gilmore CRNA 07/10/25 0923 by Catalina Gilmore CRNA Other Airways 07/10/25; 0853 (crea silke via procedure documentation); LMA; 07/10/25; 92207/10/25 0853 by Catalina Gilmore CRNA 07/10/25 09 by Catalina Gilmore CRNA documented in this encounter Social History Tobacco Use Types Packs/Day Years [...] Date Derek rded Speak language other than Occitan at home Not on file 02/17/2024 Want [...] on file documented as of this encounter OR Notes * Anesthesia Postprocedure Evaluation - Catalina Gilmore CRNA - 07/10/2025 9:52 AM EST Patient: Francesco Adorno Procedure Summary Date: 07/10/25 Room / Location: [facility] OPERATING ROOM Anesthesia Start: 0848 Anesthesia Stop: Procedure: GREENLIGHT LASER VAPORIZATION OF PROSTATE (Urethra) Diagnosis: Enlarged prostate with urinary obstruction (SEE PRIMARY DX) Surgeons: Ayden Doll Jr., MD Responsible Provider: Catalina Gilmore CRNA Anesthesia Type: general ASA Status: 3 Anesthesia Type: general Vitals Value Taken Time BP 145/81 07/10/25 09:51 Temp 97.6 ??F (36.4 ??C) 07/10/25 09:25 Pulse 63 07/10/25 09:51 Resp 22 07/10/25 09:51 SpO2 98 % 07/10/25 09:51 Vitals shown include unfiled device data. Ht 1.727 m (5' 8 ) Wt 57 kg (125 lb 9.6 oz) BMI 19.10 kg/m?? Anesthesia Post Evaluation Patient participation: complete - patient participated Regional recovery expected within 48 hours: complete Level of consciousness: awake Pain management: adequate Airway patency: patent Respiratory status: acceptable Cardiovascular status: acceptable and stable Hydration status: acceptable PONV: none Color: [place] Activity: Moves 4 extremities Inotropes/Vasopressors: N/A No notable events documented. Catalina Gilmore CRNA 07/10/2025 9:52 AM EST RER'S AIDE * Anesthesia Procedure Notes - Catalina Gilmore CRNA - 07/10/2025 9:01 AM EST Associated Order(s): Intubation Intubation Authorized by: Catalina Gilmore CRNA Performed by: Catalina Gilmore CRNA Date/Time: 07/10/2025 8:53 AM Reason: elective Indications and Patient Condition Indications for airway management: anesthesia Sedation level: general anesthesia Preoxygenated: yesPatient position: sniffing Mask difficulty assessment: 0 - not attempted Final Airway Details Final airway type: supraglottic airway Supraglottic airway type: classic Size: 3 Number of attempts at approach: 1 RER'S AIDE * Anesthesia Preprocedure Evaluation - Mike Avelar MD - 07/10/2025 7:54 AM EST Anesthesia Pre Evaluation Mr. Francesco Adorno is a 85 y.o. male being evaluated for the following: Date/Time: 07/10/25851 Procedure: GREENLIGHT LASER VAPORIZATION OF PROSTATE Location: OR OPERATING ROOM Surgeons: Ayden Doll Jr., MD Relevant Problems ANESTHESIA (within normal limits) CARDIOVASCULAR PAT/Cardiac Clearance Note: 85 y.o. male with history significant for: [...] will follow-up with myself on annual basis. Discussed via text with Dr. Schilling due to weather and issues with office answering phone--he reviewed stress/echo. Can proceed, moderate risk. -copy of stress test on chart SP TAVR: Echo 2023 Normal sized left ventricle. Asymmetrical moderate ventricular septal hypertrophy. Visually estimated ejection fraction 55% +/- 5%. Abnormal systolic strain pattern. Increased left atrial pressure (Grade II diastolic dysfunction). Abnormal TAPSE; abnormal right ventricular function. Status post TAVR aortic valve replacement. Peak P.63 mmHg; Mean P.31 mmHg. No paravalvular regurgitation. No central aortic regurgitation. (+) HTN (hypertension) ENDOCRINE (within normal limits) GASTROINTESTINAL (within normal limits) /RENAL (within normal limits) NEURO/PSYCH (+) CVA (cerebral vascular accident) (HCC) (2020. R sided deficits ) (+) S/P TAVR (transcatheter aortic valve replacement) RESPIRATORY SYSTEM (within normal limits) Clinical information reviewed: NPO Status Date of last liquid: 07/09/25 Time of last liquid: 2129 Date of last solid: 07/09/25 Time of last solid: 2129 Physical Exam Airway Mallampati: II TM distance: >3 FB Neck ROM: full Cardiovascular - normal exam Dental - normal exam Pulmonary - normal exam Abdominal - normal exam Anesthesia Plan ASA 3 Planned anesthetic: general Induction: intravenous Informed Consent- Anesthetic plan and risks discussed with patient. Blood Consent- Use of blood products discussed with patient who consented to blood products. Plan discussed with BILLING ADJUDICATOR. RER'S AIDE RER'S AIDE documented in this encounter Plan of Treatment Not on file documented as of this encounter Goals Goal Patient Goal Type Associated Problems Recent Progress Patient-Stated? Author Autogenerat ed Goal Care Plan Autogenerated Problem No Nimisha Haile documented as of this encounter Procedures Procedure Name Priority Date/Time Associated Diagnosis Comments OTTONIEL AN LMA LDA Routine 07/10/2025 8:53 AM EST ANESTHESIA INTUBATION Routine 07/10/2025 8:53 AM EST documented in this encounter Results * AN SINGLE LUMEN INTUBATION, OTTONIEL AN LMA LDA (07/10/2025 8:53 AM EST) Catalina Benites CRNA - 07/10/2025 8:53 AM EST Catalina Gilmore CRNA 07/10/2025 9:01 AM Intubation Authorized by: Catalina Gilmore CRNA Performed by: Catalina Gilmore CRNA Date/Time: 07/10/2025 8:53 AM Reason: elective Indications and Patient Condition Indications for airway management: anesthesia Sedation level: general anesthesia Preoxygenated: yesPatient position: sniffing Mask difficulty assessment: 0 - not attempted Final Airway Details Final airway type: supraglottic airway Supraglottic airway type: classic Size: 3 Number of attempts at approach: 1 Catalina Gilmore CRNA ANESTHESIA ORDERABLES Final Result documented in this encounter Visit Diagnoses Not on filedocumented in this encounter Administered Medications Inactive Administered Medications - up to 3 most recent administrations Medication Order MAR Action Action Date Dose Rate Site cefOXitin (MEFOXIN) IVPB 2 g in dextrose 5 % 50 mL (premix) 2 g Every 8 hours scheduled, intravenous, at 100 mL/hr, First dose on Thu07/10/25 at 0730, For 1 dose, Pre-op, Please choose an indication: Surgical Prophylaxis Given 07/10/2025 8:54 AM EST 2 g dexAMETHasone PF injection As needed, perineural, Starting on Thu07/10/25 at 0851, Anesthesia Intra-op Given 07/10/2025 8:51 AM EST 4 mg fentaNYL PF (SUBLIMAZE) injection As needed, intravenous, Starting on Thu07/10/25 at 0900, Anesthesia Intra-op Given 07/10/2025 9:00 AM EST 25 mcg lactated Ringer's infusion Continuous PRN, intravenous, Starting on Thu07/10/25 at 0848, Anesthesia Intra-op New Bag 07/10/2025 8:48 AM EST lidocaine (XYLOCAINE) injection 2% As needed, intravenous, Starting on Thu07/10/25 at 0851, Anesthesia Intra-op Given 07/10/2025 8:51 AM EST 60 mg ondansetron (ZOFRAN) injection As needed, intravenous, Starting on Thu07/10/25 at 0911, Anesthesia Intra-op Given 07/10/2025 9:11 AM EST 4 mg propofol (DIPRIVAN) injection 10 mg/mL bolus As needed, intravenous, Starting on Thu07/10/25 at 0851, Anesthesia Intra-op Given 07/10/2025 8:51 AM EST 100 mg documented in this encounter Additional Health Concerns Active Problems Noted Date Diagnosed Date Autogenerated Problem 06/29/2025 documented as of this encounter Care Teams Vegetable Trimmer Relationship Specialty Start Date End Date Robert Batista MD [address] [place] [id number] PCP - General Family Medicine 07/04/25 documented as of this encounter
--- OUTSIDE RECORDS SUMMARY | 2025-07-10 08:52 | XMS_ITS | Encounter Summary ---
Author Organization [employer] ([place], [place], [place], [place], [place]) Address [address] [place] [address] Care Team Providers Care Electrical Designer Drafter Name Role Phone Robert Batista MD Primary Care Provider [phone] Reason for Visit * Auth/Cert (Routine) Specialty Diagnoses / Procedures Referred By Contac t Referred To Contact Diagnoses Enlarged prostate with urinary obstruction SEE PRIMARY DX Procedures [place] LASER VAPORIZATION OF PROSTATE FOR URINE FLOW CYSTOSCOPY,LASER VAPORIZATION PROSTATE GREENLIGHT [facility] Surgery Department [address] [place] [address] Phone: tel: fax: [facility] Surgery Department [address] [place] [address] Phone: tel: fax: Referral ID Status Reason Start Date Expiration Date Visits Re quested Visits Authorized [id number] 1 1 Encounter Details Date Type Department Care Team (Late st Contact Info) Description 07/10/2025 8:52 AM EST - 07/10/2025 10:14 AM EST Surgery [facility] Surgery Department [address] [place] [address] Ayden Doll Jr., MD [address] [place] [address] [address] [place] [address] GREENLIGHT LASER VAPORIZATION OF PROSTATE Social History Tobacco Use Types Packs/Day Years [...] Date Derek rded Speak language other than Venezuelan at home Not on file 02/17/2024 Want [...] Sign Reading Time Taken Comments Blood Pressure 178/94 07/10/2025 10:05 AM EST Pulse 69 07/10/2025 10:05 AM EST Temperature 36.6 C (97.9 F) 07/10/2025 10:05 AM EST Respiratory Rate 16 07/10/2025 10:05 AM EST Oxygen Saturation 98% 07/10/2025 10:05 AM EST Inhaled Oxygen Concentration - - Weight 57 kg (125 lb 9.6 oz) 07/10/2025 7:14 AM EST Height 172.7 cm (5' 8 ) 07/10/2025 7:14 AM EST Body Mass Index 19.1 07/10/2025 7:14 AM EST documented in this encounter Discharge Instructions * Attachments The following attachments cannot be sent through Care Everywhere. * General Anesthesia Adult Care After (Venezuelan) * Green Light Laser Prostate Treatment Care After (Venezuelan) * Indwelling Urinary Catheter Care Adult Tdkv-oq-Ptil (Venezuelan) documented in this encounter Medications at Time [...] there are no changes to the H&P. SCIENCE TECHNICIAN Source Note - Ayden Doll Jr., MD [...] stable Attending Attestation: I performed the procedure. SCIENCE TECHNICIAN documented in this encounter Plan of Treatment Not on file documented as of this encounter Goals Goal Patient Goal Type Associated Problems Recent Progress Patient-Stated? Author Autogenerat ed Goal Care Plan Autogenerated Problem No Nimisha Haile documented as of this encounter Procedures Procedure Name Priority Date/Time Associated Diagnosis Comments [place] LASER VAPORIZATION OF PROSTATE FOR URINE FLOW 07/10/2025 8:46 AM EST Enlarged prostate with urinary obstruction Case Notes AGILMARGARITA CONF [id number] SPOKE TO FRANNY RICE POC Routine 07/10/2025 6:43 AM EST documented in this encounter Results * Glucose, Nova Meter (07/10/2025 6:43 AM EST) POC-GLUCOSE 103 70 - 110 mg/dL 07/10/2025 6:45 AM EST [facility] Comment:In the event of poor peripheral blood flow, venous or arterial blood should be used due to the potential of erroneous results. 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 Hypertrophy of prostate with urinary obstruction and other lower urinary tract symptoms (LUTS) documented in this encounter Administered Medications Inactive Administered Medications - up to 3 most recent administrations Medication Order MAR Action Action Date Dose Rate Site electrolyte-R (NORMOSOL-R) infusion intravenous, Continuous, Starting on Thu07/10/25 at 0800, Pre-op New Bag 07/10/2025 7:42 [...] PACU lidocaine (UROJET, GLYDO) 2 % jelly As needed, Starting on Thu07/10/25 at 0905, Intra-op Given 07/10/2025 9:05 AM EST 1 Application ondansetron (ZOFRAN) injection 4 mg 4 mg [...] Prophylaxis 0743 (Handoff - Prov ider: Julieta Watts RN - Comment: OR Nurse)0854 (Given - Provider: Catalina Gilmore CRNA) famotidine [...] needed, Starting on Thu07/10/25 at 0905, Intra-op 0905 (Given - Provid er: Ayden Doll Jr., [...] documented as of this encounter Care Teams Electrical Designer Drafter Relationship Specialty Start Date End Date Robert Batista MD [address] [place], [place] [address] PCP - General Family Medicine 07/04/25 documented as of this encounter
[2025-07-11 04:20] VITALS: BP 179/90; PULSE 88; RESP 20; TEMP 36.8; O2SAT 95; BMI 18.2
--- OUTSIDE RECORDS SUMMARY | 2025-07-11 04:25 | XMS_ITS | Encounter Summary ---
Author Organization [employer] ([place], [place], [place], [place], [place]) Address [address] [place] [address] Care Team Providers Care Staff Radiologist Name Role Phone Robert Batista MD Primary Care Provider [phone] Encounter Details Date Type Department Care Team (Late st Contact Info) Description 12/31/2020 Transcribed Document [facility] [place] Family Medicine [address] [place] [address] ProviderMacrina MD [address] [place], [place] [id number] Social History Tobacco Use Types Packs/Day Years Used Date Smoking Tobacco: Never Assessed Sex and Gender Information Value Date Recorded Sex Assigned at Not on file Legal Sex Male 1:13 PM CDT Gender Identity Not on file Sexual Orientation Not on file documented as of this encounter Miscellaneous Notes * Cerner Conversion Note - Macrina Cordova MD - 12/31/2020 11:41 AM CDT Clinical Dietitian [...] AAT to goal at 50ml/hr + 1 urmullcnd28 daily (provides 1710kcal, 83g PRO). Goal: meet est needs 2. If able to extubate today, start PO diet as feasible (cardiac diet). RD to provide appropriate ONS. goal: safe PO 3. Monitor elytes and replace prn Goal: wnls 4. Obtain wt 2x weekly goal: avoid sig wt changes Risk: High Tamy Wolff Dietaleksanderan - 12/31/2020 11:41 EDT Electronically signed by [facility], [facility] Conversion Paintings Conservator Cerner at 11/10/2022 9:13 AM CDT documented in this encounter Plan of Treatment Not on file documented as of this encounter Visit Diagnoses Not on filedocumented in this encounter Care Teams Staff Radiologist Relationship Specialty Start Date End Date Robert Batista MD [address] [place] [address] PCP - General Family Medicine 07/04/25 documented as of this encounter
--- OUTSIDE RECORDS SUMMARY | 2025-07-11 04:25 | XMS_ITS | Encounter Summary ---
Author Organization [employer] ([place], [place], [place], [place], [place]) Address [address] [place] [address] Care Team Providers Care Business Services Intern Name Role Phone Robert Batista MD Primary Care Provider [phone] Encounter Details Date Type Department Care Team (Late st Contact Info) Description 01/04/2021 Transcribed Document [facility] [place] Family Medicine [facility] [place] [address] ProviderMacrina MD [address] [place], [place] [address] Social History Tobacco Use Types Packs/Day Years [...] 1012. 01/02/21: POD#6 Intubated and sedated on [id number]/hr and Precedex .6mcg/kg/min. He is also on [...] Non-distended, Normal bowel sounds. Integumentary: Warm, Dry, Bowers. Neurologic: The pt is able to move [...] - Pre-Op Diagnosis, Medical. Electronically signed by [facility], [facility] Conversion Tree Trimming Supervisor Cerner at 11/10/2022 9:21 AM CDT documented in this encounter Plan of Treatment Not on file documented as of this encounter Visit Diagnoses Not on filedocumented in this encounter Care Teams Business Services Intern Relationship Specialty Start Date End Date Robert Batista MD [address] [place] [address] PCP - General Family Medicine 07/04/25 documented as of this encounter
--- OUTSIDE RECORDS SUMMARY | 2025-07-11 04:25 | XMS_ITS | Encounter Summary ---
Author Organization [employer] ([place], [place], [place], [place], [place]) Address [address] [place] [address] Care Team Providers Care Inspector Optical Instrument Name Role Phone Robert Batista MD Primary Care Provider [phone] Encounter Details Date Type Department Care Team (Late st Contact Info) Description 12/31/2020 Transcribed Document [facility] [place] [facility] [place] [address] ProviderMacrina MD [address] [place], [place] [address] Social History Tobacco Use Types Packs/Day Years Used Date Smoking Tobacco: Never Assessed Sex and Gender Information Value Date Recorded Sex Assigned at Not on file Legal Sex Male 1:13 PM CDT Gender Identity Not on file Sexual Orientation Not on file documented as of this encounter Miscellaneous Notes * Viridiananer Conversion Note - Macrina ProviderMD - 12/31/2020 6:57 PM CDT Spiritual [...] on filedocumented in this encounter Care Teams Inspector Optical Instrument Relationship Specialty Start Date End Date Robert Batista MD [address] [place], [place] [address] PCP - General Family Medicine 07/04/25 documented as of this encounter
--- OUTSIDE RECORDS SUMMARY | 2025-07-11 04:25 | XMS_ITS | Encounter Summary ---
Author Organization [employer] ([place], [place], [place], [place], [place]) Address [address] [place] [address] Care Team Providers Care Car Ferry Captain Name Role Phone Robert Batista MD Primary Care Provider [phone] Encounter Details Date Type Department Care Team (Late st Contact Info) Description 01/10/2021 Transcribed Document [facility] [place] Family Medicine [address] [place] [address] ProviderMacrina MD [address] [place], [place] [address] Social History Tobacco Use Types Packs/Day Years [...] - 01/10/2021 10:50 AM CDT Consult to Outside Plant Technician Entered On: 01/10/2021 14:03 EDT Performed On: 01/10/2021 10:50 EDT by Kathy Medrano, RN Consult to Outside Plant Technician Modifiable Risk Factors : Dyslipidemia, Hypertension Non-Modifiable Risk Factors, Age : Non-Modifiable Risk Factors, Age Age: 80 Years Non-Modifiable Risk Factors, Race : Non-Modifiable Risk Factors, Race Race: White Non-Modifiable Risk Factors, Family History : Non-Modifiable Risk Factors, Family History Heart disease: Father (12/27/20 08:31:11) Heart disease: Mother (12/27/20 08:31:11) Modified Chantel Score : Modified Kay Scale No qualifying data available. NIH Stroke Scale (Admission) : NIH Stroke Scale (Admission) NIH Scale Score: 5 (01/07/2021 08:00:00) NIH Stroke Scale (Discharge) : NIH Stroke Scale (Discharge) NIH Scale Score: 5 (01/07/2021 08:00:00) Bedside Swallow (SLUDGE CONTROL OPERATOR) : Bedside Swallow (SLUDGE CONTROL OPERATOR) Swallow Outcome BS Swallow: Impaired (01/07/21 [...] Kathy Medrano RN - 01/10/2021 13:43 EDT Outside Plant Technician Needs Assessment Diagnosis Documented by Provider : Acute Ischemic Stroke Modifiable Risk Factors : Dyslipidemia, Hypertension Outside Plant Technician Consultation Summary : Met with patient to [...] EDT) Problems(Active) Aortic stenosis, severe (SNOMED CT :7195095283 ) Name of Problem: Aortic stenosis, severe ; Recorder: CINDY HAGAN RN; Confirmation: Confirmed ; Classification: Patient Stated ; Code: 6153609255 ; Contributor System: PowerChart ; Last Updated: 12/03/2020 13:33 EDT ; Life Cycle Date: 12/03/2020 ; Life Cycle Status: Active ; Vocabulary: SNOMED CT Aortic valve stenosis (SNOMED CT :297341057 ) Name of Problem: Aortic valve stenosis ; Recorder: FABRICE JOESPH RN; Confirmation: Confirmed ; Classification: Medical ; Code: 109433335 ; Contributor System: PowerChart ; Last Updated: 12/27/2020 8:31 EDT ; Life Cycle Status: Active ; Vocabulary: SNOMED CT Arthritis of right knee (SNOMED CT :3348832289 ) Name of Problem: Arthritis of right knee ; Recorder: CINDY HAGAN RN; Confirmation: Confirmed ; Classification: Patient Stated ; Code: 8343668325 ; Contributor System: PowerChart ; Last Updated: 12/03/2020 13:35 EDT ; Life Cycle Date: 12/03/2020 ; Life Cycle Status: Active ; Vocabulary: SNOMED CT At risk for sleep apnea (IMO :23226455 ) Name of Problem: At risk for sleep apnea ; Recorder: SYSTEM, SYSTEM; Confirmation: Confirmed ; Classification: Medical ; Code: 25144378 ; Last Updated: 11/15/2019 7:34 EDT ; Life Cycle Date: 11/15/2019 ; Life Cycle Status: Active ; Vocabulary: IMO At risk for violence (IMO :89476784 ) Name of Problem: At risk for violence ; Recorder: SYSTEM, SYSTEM; Confirmation: Confirmed ; Classification: Medical ; Code: 64348371 ; Last Updated: 01/08/2021 8:42 EDT ; Life Cycle Date: 01/08/2021 ; Life Cycle Status: Active ; Vocabulary: IMO Back pain, chronic (SNOMED CT :552327251 ) Name of Problem: Back pain, chronic ; Recorder: CELESTINA ALVARADO RN; Confirmation: Confirmed ; Classification: Patient Stated ; Code: 413886074 ; Contributor System: PowerChart ; Last Updated: 09/19/2019 13:32 EST ; Life Cycle Date: 09/19/2019 ; Life Cycle Status: Active ; Vocabulary: SNOMED CT Chronic anxiety (SNOMED CT :986568334 ) Name of Problem: Chronic anxiety ; Recorder: CELESTINA ALVARADO RN; Confirmation: Confirmed ; Classification: Patient Stated ; Code: 513920712 ; Contributor System: PowerChart ; Last Updated: 09/19/2019 13:30 EST ; Life Cycle Date: 09/19/2019 ; Life Cycle Status: Active ; Vocabulary: SNOMED CT Colorectal surgery (SNOMED CT :3919801598 ) Name of Problem: Colorectal surgery ; Onset Date: 12/05/1997 ; Recorder: TONY BRIDGES RN; Confirmation: Confirmed ; Classification: Medical ; Code: 0441245476 ; Contributor System: PowerChart ; Last Updated: 12/25/2020 10:35 EDT ; Life Cycle Date: 12/25/2020 ; Life Cycle Status: Active ; Vocabulary: SNOMED CT Disorder of prostate (SNOMED CT :02526385 ) Name of Problem: Disorder of prostate ; Recorder: CELESTINA ALVARADO RN; Confirmation: Confirmed ; Classification: Patient Stated ; Code: 77329005 ; Contributor System: PowerChart ; Last Updated: 09/19/2019 13:31 EST ; Life Cycle Date: 09/19/2019 ; Life Cycle Status: Active ; Vocabulary: SNOMED CT GERD - Gastro-esophageal reflux disease (SNOMED CT :5712930937 ) Name of Problem: GERD - Gastro-esophageal reflux disease ; Recorder: CELESTINA ALVARADO RN; Confirmation: Confirmed ; Classification: Patient Stated ; Code: 5911392256 ; Contributor System: PowerChart ; Last Updated: 09/19/2019 13:31 EST ; Life Cycle Date: 09/19/2019 ; Life Cycle Status: Active ; Vocabulary: SNOMED CT H/O peripheral neuropathy (SNOMED CT :836681997 ) Name of Problem: H/O peripheral neuropathy ; Recorder: CINDY HAGAN RN; Confirmation: Confirmed ; Classification: Patient Stated ; Code: 957408564 ; Contributor System: PowerChart ; Last Updated: 12/25/2020 10:35 EDT ; Life Cycle Status: Active ; Vocabulary: SNOMED CT ; Comments: 12/25/2020 10:35 - TONY BRIDGES RN feet tingle all the time HTN - Hypertension (SNOMED CT :5031764061 ) Name of Problem: HTN - Hypertension ; Recorder: FABRICE JOSEPH RN; Confirmation: Confirmed ; Classification: Medical ; Code: 5429632716 ; Contributor System: PowerChart ; Last Updated: 12/27/2020 8:32 EDT ; Life Cycle Status: Active ; Vocabulary: SNOMED CT Hyperlipidemia (SNOMED CT :16630205 ) Name of Problem: Hyperlipidemia ; Recorder: CELESTINA ALVARADO RN; Confirmation: Confirmed ; Classification: Patient Stated ; Code: 61482663 ; Contributor System: [employer] ; Last Updated: 09/19/2019 13:29 EST ; Life Cycle Date: 09/19/2019 ; Life Cycle Status: Active ; Vocabulary: SNOMED CT Hypertension (SNOMED CT :45692071 ) Name of Problem: Hypertension ; Recorder: CELESTINA ALVARADO RN; Confirmation: Confirmed ; Classification: Patient Stated ; Code: 88875210 ; Contributor System: [employer] ; Last Updated: 09/19/2019 13:29 EST ; [...] Oral, Daily ; Ordering Provider: DANYELLE WALTERS MD-[facility]; Catalog Code: aspirin ; Order Dt/Tm: 12/27/2020 [...] Ordering Provider: EMEKA MADERA MD-[facility]; Catalog Code: potassium chloride ; Order [...] 12/31/2020 10:10:04 EDT Education Topics: Stroke Education (Outside Plant Technician) Stroke Education Handouts Given *Q : Yes Kathy Medrano RN - 01/10/2021 13:43 EDT Electronically signed by Olinda Payne Conversion Supervisor Pipeline Maintenance Cerner at 11/10/2022 9:06 AM CDT documented in this encounter Plan of Treatment Not on file documented as of this encounter Visit Diagnoses Not on filedocumented in this encounter Care Teams Car Ferry Captain Relationship Specialty Start Date End Date Robert Batista MD [address] [place] [address] PCP - General Family Medicine 07/04/25 documented as of this encounter
--- OUTSIDE RECORDS SUMMARY | 2025-07-11 04:25 | XMS_ITS | Encounter Summary ---
Author Organization [employer] ([place], [place], [place], [place], [place]) Address [address] [place] [address] Care Team Providers Care Acute Care Nursing Assistant Name Role Phone Robert Batista MD Primary Care Provider [phone] Encounter Details Date Type Department Care Team (Late st Contact Info) Description 01/16/2021 Transcribed Document [facility] [place] Family Medicine [address] [place] [address] ProviderMacrina MD [address] [place] [address] Social History Tobacco Use Types Packs/Day Years Used Date Smoking Tobacco: Never Assessed Sex and Gender Information Value Date Recorded Sex Assigned at Not on file Legal Sex Male 1:13 PM CDT Gender Identity Not on file Sexual Orientation Not on file documented as of this encounter Miscellaneous Notes * Cerner Conversion Note - Macrina ProviderMD - 01/16/2021 5:00 PM CDT Chart Check - Review Order Profile Entered On: 01/16/2021 15:02 EDT Performed On: 01/16/2021 17:00 EDT by Pavel Rizvi, Automation Design Engineer-Student Nurse Chart Check Powerplans Initiated/Discontinued as Appropriate : Not applicable All Active Orders Reviewed : Yes Pavel Rizvi, Automation Design Engineer-Student Nurse - 01/16/2021 15:02 EDT Electronically signed by [facility] Conversion Machine Tank Operator Cerner at 11/10/2022 9:04 AM CDT documented in this encounter Plan of Treatment Not on file documented as of this encounter Visit Diagnoses Not on filedocumented in this encounter Care Teams Acute Care Nursing Assistant Relationship Specialty Start Date End Date Robert Batista MD [address] [place], [place] [address] PCP - General Family Medicine 07/04/25 documented as of this encounter
--- OUTSIDE RECORDS SUMMARY | 2025-07-11 04:25 | XMS_ITS | Clinical Summary ---
[facility] Organization [facility] Address [address] [place] [address] Care Team Providers Care Bed Laborer Name Role Phone Robert Batista MD Primary Care Provider [phone] Social History Tobacco Use Types Packs/Day Years [...] Adults (1 - 1-dose 75+ series) 4 INFLUENZA VACCINE 02/24/2025 COVID-19 Vaccine ( season) 2025 Care Teams Bed Laborer Relationship Specialty Start Date End Date Robert Batista MD [address] [place] [address] PCP - General 11/02/15
--- OUTSIDE RECORDS SUMMARY | 2025-07-11 04:25 | XMS_ITS | Encounter Summary ---
Author Organization [employer] ([place], [place], [place], [place], [place]) Address [address] [place] [address] Care Team Providers Care Corn Grinder Name Role Phone Robert Batista MD Primary Care Provider [phone] Encounter Details Date Type Department Care Team (Late st Contact Info) Description 01/16/2021 Transcribed Document [facility] [place] Family Medicine [facility] [place] [address] ProviderMacrina MD [address] [place], [place] [address] Social History Tobacco Use Types Packs/Day Years [...] 1012. 01/02/21: POD#6 Intubated and sedated on [id number]/hr and Precedex .6mcg/kg/min. He is also on [...] #18 Patient still not cleared for PO [facility] has accepted the patient, but he needs a PEG. Will consult general surgery for PEG placement prior to transfer to [facility] 01/15/2021 POD #19 Planning to repeat swallow evaluation. Depending on results, may require PEG prior to transfer to [facility]. 01/16/2021: POD #20 Continue tube feedings PEG tomorrow per Dr. Rodriguez Spoke with , will contact [facility] tomorrow for bed availability once PEG is [...] - Pre-Op Diagnosis, Medical. Electronically signed by [facility] Conversion Systems Navigator Cerner at 11/10/2022 9:20 AM CDT documented in this encounter Plan of Treatment Not on file documented as of this encounter Visit Diagnoses Not on filedocumented in this encounter Care Teams Corn Grinder Relationship Specialty Start Date End Date Robert Batista MD [address] [place] [address] PCP - General Family Medicine 07/04/25 documented as of this encounter
--- OUTSIDE RECORDS SUMMARY | 2025-07-11 04:25 | XMS_ITS | Encounter Summary ---
Author Organization [employer] ([place], [place], [place], [place], [place]) Address [address] [place] [address] Care Team Providers Care Passenger Service Supervisor Name Role Phone Robert Baitsta MD Primary Care Provider [phone] Encounter Details Date Type Department Care Team (Late st Contact Info) Description 12/31/2020 Transcribed Document [facility] [place] [facility] [place] [address] ProviderMacrina MD [address] [place], [place] [address] Social History Tobacco Use Types Packs/Day Years Used Date Smoking Tobacco: Never Assessed Sex and Gender Information Value Date Recorded Sex Assigned at Not on file Legal Sex Male 1:13 PM CDT Gender Identity Not on file Sexual Orientation Not on file documented as of this encounter Miscellaneous Notes * Cerner Conversion Note - Macrina Cordova MD - 12/31/2020 2:55 PM CDT On Going Discharge Planning Entered On: 12/31/2020 14:58 EDT Performed On: 12/31/2020 14:55 EDT by SOPHY RM Rn-Roof Cement And Paint MakerPower Electronics Engineer Progress Note Discharge Arrangements : Patient [...] Patient Meeting Medical Necessity : Yes SOPHY RM, Rn-Roof Cement And Paint Maker - 12/31/2020 14:55 EDT Narrative Progress Note [...] progress; OP Cardiac Rehab referral placed thru [facility]. SOPHY RM, Rn-Roof Cement And Paint Maker - 12/28/20 12:42:03 SOPHY RM Rn-Roof Cement And Paint Maker - 12/31/2020 14:55 EDT Electronically signed by Olinda Payne Conversion Environmental Field Technician Cerner at 11/10/2022 9:04 AM CDT documented in this encounter Plan of Treatment Not on file documented as of this encounter Visit Diagnoses Not on filedocumented in this encounter Care Teams Passenger Service Supervisor Relationship Specialty Start Date End Date Robert Batista MD [address] [place] [place] [address] PCP - General Family Medicine 07/04/25 documented as of this encounter
--- OUTSIDE RECORDS SUMMARY | 2025-07-11 04:25 | XMS_ITS | Encounter Summary ---
Author Organization [facility] ([place], [place], [place], [place], [place]) Address [address] [place] [address] Care Team Providers Care Cell Stripper Final Name Role Phone Robert Batista MD Primary Care Provider Encounter Details Date Type Department Care Team (Late st Contact Info) Description 01/16/2021 Transcribed Document [facility] [place] [facility] [place] [address] ProviderMacrina MD [address] [place], [place] [id number] Social History Tobacco Use Types Packs/Day Years [...] APRN BASIC PCP: Robert Batista MD Primary Instructional Writer: Arthur Gomez MD Subjective Resting in bed. [...] 96 (JAN 15 18:24) Resp Rate 20 (DEC 22 18:24) 20 (DEC 22 18:24) 20 (DEC 22 18:24) SBP 105 (JAN 16 05:35) 104 (DEC 22 18:24) 126 (JAN 16 03:12) DBP 63 (JAN 16 05:35) L 57 (JAN 16 03:12) 76 (JAN 15 20:37) MAP 77 (JAN 16 05:35) 75 (JAN 15 18:24) 88 (JAN 15 20:37) SpO2 96 (JAN 15 18:24) 96 (JAN 15 18:24) 96 (JAN 15 18:24) General: Alert [...] 32.9 \ Radiology Results (Last 48 hours) [id number] -- 12/27/2020 06:39 CR Chest 1 Vw [...] s/p pericardiocentesis and surgical repair of LV [place]. *PEA Arrest; CODE called 10 minutes to [...] on filedocumented in this encounter Care Teams Cell Stripper Final Relationship Specialty Start Date End Date Robert Batista MD [address] [place] [address] PCP - General Family Medicine 07/04/25 documented as of this encounter
--- OUTSIDE RECORDS SUMMARY | 2025-07-11 04:25 | XMS_ITS | Encounter Summary ---
Author Organization [employer] ([place], [place], [place], [place], [place]) Address [address] [place] [address] Care Team Providers Care Card Processing Clerk Name Role Phone Robert Batista MD Primary Care Provider [phone] Encounter Details Date Type Department Care Team (Late st Contact Info) Description 12/31/2020 Transcribed Document [facility] [address] [place] [address] Abby Rodrigues MD [address] [place] [address] Social History Tobacco Use Types Packs/Day Years [...] Basic Information PCP: Robert Batista MD Primary Automobile Service Advisor: Arthur Gomez MD Subjective Patient seen and [...] 104 (DEC 31 05:00) SpO2 99 (DEC 31:00) 94 (DEC 30 11:00) 100 (DEC 31 [...] 25.8 \ Radiology Results (Last 48 hours) [id number] -- 12/27/2020 06:39 CT Chest WO (12/29/2020 [...] Alva.Transcribed by [place] PA-C, [email or web address] (N), C [...] s/p pericardiocentesis and surgical repain of LV [place]. PEA Arrest; CODE called 10 minutes to [...] on filedocumented in this encounter Care Teams Card Processing Clerk Relationship Specialty Start Date End Date Robert Batista MD [address] [place] [address] PCP - General Family Medicine 07/04/25 documented as of this encounter
--- OUTSIDE RECORDS SUMMARY | 2025-07-11 04:25 | XMS_ITS | Encounter Summary ---
Author Organization [employer] ([place], [place], [place], [place], [place]) Address [address] [place] [address] Care Team Providers Care Sand Cleaning Machine Operator Name Role Phone Robert Batista MD Primary Care Provider [phone] Encounter Details Date Type Department Care Team (Late st Contact Info) Description 01/16/2021 Transcribed Document [facility] [place] [facility] [place] [address] ProviderMacrina MD [address] [place] [address] [id number] Social History Tobacco Use Types Packs/Day Years [...] on filedocumented in this encounter Care Teams Sand Cleaning Machine Operator Relationship Specialty Start Date End Date Robert Batista MD [address] [place], [place] [address] PCP - General Family Medicine 07/04/25 documented as of this encounter
--- OUTSIDE RECORDS SUMMARY | 2025-07-11 04:25 | XMS_ITS | Encounter Summary ---
Author Organization [employer] ([place], [place], [place], [place], [place]) Address [address] [place] [address] Care Team Providers Care Coagulating Bath Mixer Name Role Phone Robert Batista MD Primary Care Provider Encounter Details Date Type Department Care Team (Late st Contact Info) Description 01/04/2021 Transcribed Document [facility] [place] [address] [place] [address] ProviderMacrina MD [address] [place], [place] [phone] Social History Tobacco Use Types Packs/Day Years [...] on filedocumented in this encounter Care Teams Coagulating Bath Mixer Relationship Specialty Start Date End Date Robert Batista MD [address] [place], [place] [address] PCP - General Family Medicine 07/04/25 documented as of this encounter
--- OUTSIDE RECORDS SUMMARY | 2025-07-11 04:25 | XMS_ITS | Encounter Summary ---
Author Organization [employer] ([place], [place], [place], [place], [place]) Address [address] [place] [address] Care Team Providers Care Hair Stylist Name Role Phone Robert Batista MD Primary Care Provider [phone] Encounter Details Date Type Department Care Team (Late st Contact Info) Description 01/04/2021 Transcribed Document [facility] [place] [address] [place] [address] ProviderMacrina MD [address] [place] [address] Social History Tobacco Use Types [...] Continue Osmolite 1.5 @ 50ml/hr + 1 [id number] daily (provides 1710kcal, 83g PRO). FW per MD. Goal: meet est needs 2. Monitor elytes and replace prn Goal: wnls 3. Obtain wt 2x weekly goal: avoid sig wt changes 4. Monitor bowel fxn and adjust bowel regimen prn goal: +BM Risk: High Nutrition Care Level : High Tamy Wolff Dietitian - 01/04/2021 12:18 EDT Electronically signed by El[facility] Conversion Physiotherapist'S Assistant Cerner at 11/10/2022 9:17 AM CDT documented in this encounter Plan of Treatment Not on file documented as of this encounter Visit Diagnoses Not on filedocumented in this encounter Care Teams Hair Stylist Relationship Specialty Start Date End Date Robert Batista MD [address] [place], [place] [address] PCP - General Family Medicine 07/04/25 documented as of this encounter
--- OUTSIDE RECORDS SUMMARY | 2025-07-11 04:25 | XMS_ITS | Encounter Summary ---
Author Organization [employer] ([place], [place], [place], [place], [place]) Address [address] [place] [address] Care Team Providers Care Divine Healer Name Role Phone Robert Batista MD Primary Care Provider [phone] Encounter Details Date Type Department Care Team (Late st Contact Info) Description 01/04/2021 Transcribed Document [facility] [place] Medicine [address] [place] [address] ProviderMacrina MD [address] [place] [address] Social History Tobacco Use Types [...] Time of Assessment : 01/04/2021 9:00 EDT NIH Clinician Administering Scale : JAMES Inman RN [...] on filedocumented in this encounter Care Teams Divine Healer Relationship Specialty Start Date End Date Robert Batista MD [address] [place] [address] PCP - General Family Medicine 07/04/25 documented as of this encounter
--- OUTSIDE RECORDS SUMMARY | 2025-07-11 04:26 | XMS_ITS | Encounter Summary ---
Author Organization [employer] ([place], [place], [place], [place], [place]) Address [address] [place] [address] Care Team Providers Care Cement Cutter Name Role Phone Robert Batista MD Primary Care Provider Encounter Details Date Type Department Care Team (Late st Contact Info) Description 01/10/2021 Transcribed Document [facility] [place] [address] [place] [address] ProviderMacrina MD [address] [place], [place] [phone] Social History Tobacco Use Types Packs/Day Years [...] on filedocumented in this encounter Care Teams Cement Cutter Relationship Specialty Start Date End Date Robert Batista MD [address] [place], [place] [address] PCP - General Family Medicine 07/04/25 documented as of this encounter
--- OUTSIDE RECORDS SUMMARY | 2025-07-11 04:26 | XMS_ITS | Continuity of Care Document ---
Author Organization [facility], SURGERY SCHEDULE Address [address] [place] [address] Care Team Providers Care Lead Nurse Name Role Phone PERICO AWAN Referring Provider Assessment No assessment recorded. Plan of Treatment Reminders Order Date Submit Date Provider Last Modified By Organization Details Last Modified Time Details Appointments RECHECK 2024 10:45A M MARGARET DUNCAN MD Not available Not available Not available Lab None recorded. Referral None recorded. Procedures None recorded. Surgeries green light laser transuret hral resection of prostate (SURG) 2024 025 API-830 [facility] (Surgery Scheduling), [address], [place], [address], 06/29/2025 12:47:27 Imaging None recorded. Medication Orders None recorded. Patient TargetsNo targets recorded. Patient Instructions Encounter Date Encounter Id Patient Instructions Last Modified By Organization Details Last Modified Time 06/07/2025 [id number] We have discusse d options of treatment for his obstructive voiding issues. He has not had adequate relief from medicines and other conservative measures. We have discussed a variety of surgical approaches as alternatives and we have discussed in detail risks, expected outcomes and potential complications of greenlight laser vaporization of prostate including but not limited to bleeding, infection, urinary incontinence and erectile dysfunction. He expresses understanding of all and desires to proceed. Patient has quite a small prostate but because of his high bladder neck there may be obstruction there. He is hopeful to not need to catheterize anymore and so we talked about potential laser vaporization of the prostate with transurethral incision of the prostate at the time at that time. He is interested in trying this. [facility] Not available 06/07/2025 15:45:07 Reason for Referral None Reported. Results Created Date Observation Date Name Description Value Unit Range Abnormal Flag Note LastModifiedBy Organization Detail LastModifiedTime 06/07/2006/07/2025 urina lysis panel , auto Unknown Analyte Clean Catch Not Available [facility] Schedule [address] [place] [address], [address], 06/07/2025 13:48:57 06/07/2006/07/2025 urina lysis panel , auto Unknown Analyte Yellow Not Available [facility] Surgery Schedule [facility] [place], [address], 06/07/2025 13:48:57 06/07/2006/07/2025 urina lysis panel , auto Unknown Analyte Cloudy Not Available [facility] Surgery Schedule [facility] [place], [address], 06/07/2025 13:48:57 06/07/20 25 06/07/2025 urina lysis panel , auto Unknown Analyte 1.015 Not Available [facility] Surgery Schedule [address] [place] [address], [address], 06/07/2025 13:48:57 06/07/20 25 06/07/2025 urina lysis panel , auto Unknown Analyte 1.003 - 1.030 Not Available [facility] Schedule [address] [place] [address], [address], 06/07/2025 13:48:57 06/07/20 25 06/07/2025 urina lysis panel , auto Unknown Analyte 5.0 Not Available [facility] Surgery Schedule [address] [place] [address], [address], 06/07/2025 13:48:57 06/07/20 25 06/07/2025 urina lysis panel , auto Unknown Analyte 5.0 - 8.0 Not Available [facility] Schedule [address] [place] [address], [address], 06/07/2025 13:48:57 06/07/20 25 06/07/2025 urina lysis panel , auto Unknown Analyte 500 Cisco/uL Not Available [facility] Schedule [address] [place], [address], 06/07/2025 13:48:57 06/07/20 25 06/07/2025 urina lysis panel , auto Unknown Analyte Negati ve Not Available [facility] Schedule [address] [place], [address], 06/07/2025 13:48:57 06/07/2006/07/2025 urina lysis panel , auto Unknown Analyte Negati ve Not Available [facility] Schedule [address] [place] [address], [address], 06/07/2025 13:48:57 06/07/20 25 06/07/2025 urina lysis panel , auto Unknown Analyte Negati ve Not Available [facility] Schedule [address] [place] [address], [address], 06/07/2025 13:48:57 06/07/2006/07/2025 urina lysis panel , auto Unknown Analyte Trace Not Available [facility] Surgery Schedule [address] [place], [address], 06/07/2025 13:48:57 06/07/2006/07/2025 urina lysis panel , auto Unknown Analyte Negati ve Not Available [facility] Schedule [address] [place], [address], 06/07/2025 13:48:57 06/07/2006/07/2025 urina lysis panel , auto Unknown Analyte Normal Not Available [facility] Surgery Schedule [address] [place], [address], 06/07/2025 13:48:57 06/07/20 25 06/07/2025 urina lysis panel , auto Unknown Analyte Normal Not Available [facility] Surgery Schedule [address] [place], [address], 06/07/2025 13:48:57 06/07/20 25 06/07/2025 urina lysis panel , auto Unknown Analyte Negati ve Not Available [facility] Schedule [address] [place], [address], 06/07/2025 13:48:57 06/07/20 25 06/07/2025 urina lysis panel , auto Unknown Analyte Negati ve Not Available [facility] Schedule [address] [place], [address], 06/07/2025 13:48:57 06/07/20 25 06/07/2025 urina lysis panel , auto Unknown Analyte Normal Not Available [facility] Surgery Schedule [address] [place], [address], 06/07/2025 13:48:57 06/07/20 25 06/07/2025 urina lysis panel , auto Unknown Analyte Normal Not Available [facility] Surgery Schedule [address] [place], [address], 06/07/2025 13:48:57 06/07/20 25 06/07/2025 urina lysis panel , auto Unknown Analyte 1 mg/dL Not Available [facility] Schedule [address] [place], [address], 06/07/2025 13:48:57 06/07/20 25 06/07/2025 urina lysis panel , auto Unknown Analyte Negati ve Not Available [facility] Schedule [address] [place], [address], 06/07/2025 13:48:57 06/07/20 25 06/07/2025 urina lysis panel , auto Unknown Analyte 50 Manoj/uL Not Available [facility] Schedule [address] [place], [address], 06/07/2025 13:48:57 06/07/20 25 06/07/2025 urina lysis panel , auto Unknown Analyte Negati ve Not Available [facility] Schedule [address] [place], [address], 06/07/2025 13:48:57 Result Notes None recorded. Problems Name Problem SNOMED Code Status Onset Date Resolution Date Notes Provider Name and Address Organization Details Recorded Time Lower urinary tract symptoms due to benign prostatic hypertrophy 0712191708723 1 Active 2024 MARGARET DUNCAN JR, MD [address] [place], [address], [facility] 09:16:06 Retention of urine 369834541 Active 2024 MARGARET DUNCAN JR, MD [address] [place], [address], [facility] 09:16:06 Problem Notes None recorded. Procedures Surgical History Date Name Laterality Status Provider Name and Address Organization Details Recorded Time Transrectal Ultrasound completed MARGARET DUNCAN JR, MD [address] [place], [address], [facility] 06/07/2025 15:44:21 025 Cystoscopy - male completed MARGARET DUNCAN JR, MD [address] [place], [address], [facility] 06/07/2025 15:44:12 025 Uroflowmetry; Complex completed Vicki Pérez [facility] 06/09/2025 09:42:51 Cholecystectomy completed Murelene Raghu [facility] 05/01/2025 13:41:05 procedure on colon completed Murelene Je tt [facility] 05/01/2025 13:41:17 Heart Surgery completed Murelene Raghu [facility] 05/01/2025 13:41:23 excision of squamous cell carcinoma completed Murelene Raghu [facility] 05/01/2025 13:41:46 Imaging Results None recorded. Procedure Notes None recorded. Medical Equipment None Reported. Allergies No known drug allergies Medications Name Sig Start Date Stop Date Status Note LastModified by Organization Details LastModified Time lisinopril 10 mg tablet Bedtime active Duration: 30 days;Frequ ency: hs;Medicat ion Descriptio n: lisinopril ; Dosage:1; Route:oral ; refills:5; Quantity:3 0 tablet Not Available Not Available Not Available doxazosin active Medication Descriptio n: doxazosin; Route:oral ; refills:0 Not Available Not Available Not Available metoprolol tartrate active Medication Descriptio n: metoprolol tartrate; refills:0 Not Available Not Available Not Available pravastati n active Medication Descriptio n: pravastati n; Route:oral ; refills:0 Not Available Not Available Not Available Vitals None Recorded Social History Question Answer Notes LastModified by Organ[employer]at [employer] Details LastModified Time Tobacco Smoking Status [facility] 13:40:53 What Was The Date Of Your Most Recent Tobacco Screening? 05/01/2025 Information not available 05/01/2025 Sex: Unknown Functional Status Question Answer Note LastModified by Organization D etails LastModified Time What is your level of alcohol consumption? None Information not available 05/01/2025 Mental Status None recorded. Family History Relationship Description Onset Age of this Age Resolved Age Notes LastModified by Organization Details LastModified Time Mother Family history of malignant neoplasm [email or web address] Not available 2024 13:40:41 Medical History Condition Response Arthritis Y Acid Reflux (GERD) Y Stroke Y Radiation Therapy Y High Cholesterol Y Heart Disease Y Hypertension Y Immunizations Vaccine Type Date Status Note Provider Nam e and Address Organization Details Recorded Time COVID-19, mRNA, LNP-S, PF, 100 mcg/0.5mL dose or 50 mcg/0.25mL dose 1 completed Not Available [facility] 06/07/2025 12:32:48 COVID-19, mRNA, LNP-S, PF, 100 mcg/0.5mL dose or 50 mcg/0.25mL dose 1 completed Not Available [facility] 06/07/2025 12:32:48 COVID-19, mRNA, LNP-S, PF, 100 mcg/0.5mL dose or 50 mcg/0.25mL dose 1 completed Not Available [facility] 06/07/2025 12:32:48 COVID-19, mRNA, LNP-S, PF, 100 mcg/0.5mL dose or 50 mcg/0.25mL dose 1 completed Not Available [facility] 06/07/2025 12:32:48 COVID-19, mRNA, LNP-S, bivalent, PF, 50 mcg/0.5 mL or 25mcg/0.25 mL dose 2 completed Not Available [facility] 06/07/2025 12:32:48 influenza, seasonal, intradermal, preservative free 3 completed Not Available [facility] 06/07/2025 12:32:48 Tdap 4 completed Not Available [facility] 06/07/2025 12:32:48 Influenza, high-dose, trivalent, PF 5 completed Not Available [facility] 06/07/2025 12:32:48 Past Encounters Encounter ID Performer Location Encounter Start Date Encounter Closed Date Diagnosis/Indication Diagnosis SNOMED-CT Code Diagnosis ICD10 Code Diagnosis IMO Codes Diagnosis Note [id number] MARGARET DUNCAN JR, MD [facility] [address] [facility] [place] [address] 06/07/2025 12:30:59 06/07/2025 12:57:08 Benign prostatic hyperplasia with outflow obstruction 777885618 N40.1 N13.8 50351010 Lower urin ramses tract symptoms due to benign prostatic hypertrophy 2048982255 9101 N40.1 49598587 [id number] MARGARET DUNCAN JR, MD SURGERY SCHEDULE [address] [place] [address] 06/07/2025 15:42:18 06/07/2025 15:42:52 Lower urinary tract symptoms due to benign prostatic hypertrophy 9668878650 9101 N40.1 [id number] Health Concerns Section Related Observation LastModified by Organization Detai ls LastModified Time None Recorded Concern Status LastModified by Organization Details LastModified Time None Recorded Payers Encounter Date Sequence Insurance Name Policy Number Policy Faith Covered Member ID Faith Member ID Guarantor Name 06/07/2025 1 [facility] (MEDICARE REPLACEMENT/A DVANTAGE - PPO) [id number] Francesco Adorno [id number] Francesco Adorno Notes Date Note Type Note Provider Name and Address Organization Details Recorded Time 06/07/2025 text/html The patient is an 84-year-old male presenting with bladder stones and urinary retention. Urinary retention began in August, requiring self-catheterizati on twice daily. Bladder stones are small, and the patient is on Flomax and finasteride since August. Multiple appointments for evaluation and treatment have been canceled. High risk comorbid conditions from cardiac standpoint. Documentation on this patient encounter was supported using voice-enabled Al technology. The patient consented to recording for the purpose of documenting the encounter. Provider reviewed content of the generated note prior to signature. MARGARET DUNCAN JR, MD [address] [place] [address], [address], [facility] 06/07/2025 15:45:20
--- OUTSIDE RECORDS SUMMARY | 2025-07-11 04:26 | XMS_ITS | Encounter Summary ---
Author Organization [employer] ([place], [place], [place], [place], [place]) Address [address] [place] [address] Care Team Providers Care Sql Report Developer Name Role Phone Robert Batista MD Primary Care Provider [phone] Encounter Details Date Type Department Care Team (Late st Contact Info) Description 01/10/2021 Transcribed Document [facility] Cardiology [address] [place] [address] [place] [address] [place] [address] [address] [place] [address] Social History Tobacco Use Types Packs/Day Years Used Date Smoking Tobacco: Never Assessed Sex and Gender Information Value Date Recorded Sex Assigned at Not on file Legal Sex Male 1:13 PM CDT Gender Identity Not on file Sexual Orientation Not on file documented as of this encounter Miscellaneous Notes * Cerner Conversion Note - Arthur Gomez MD - 01/10/2021 8:26 AM EDT Patient: JOSE ADORNO Age: 80 years Sex: Male : 1940 Associated Diagnoses: None Author: ARTHUR GOMEZ MD-CAR Basic Information PCP: Robert Batista MD Primary Spacer Type Bar And Segment: Arthur Gomez MD Subjective Sitting up in chair. [...] 53 (JAN 09 08:00) 77 (JAN 09 22:00) MAP 94 (JAN 10 06:00) 72 (JAN 09 17:00) 108 (JAN 10 04:00) SpO2 97 (JAN 10 06:00) L 91 (JAN 09:00) 100 (JAN 09 11:29) General: Alert and [...] 24 Hours) Radiology Results (Last 48 hours) [id number] -- 12/27/2020 06:39 CR Chest 1 Vw [...] s/p pericardiocentesis and surgical repair of LV [place]. PEA Arrest; CODE called 10 minutes to [...] on filedocumented in this encounter Care Teams Sql Report Developer Relationship Specialty Start Date End Date Robert Batista MD [address] [place], [place] [address] PCP - General Family Medicine 07/04/25 documented as of this encounter
--- OUTSIDE RECORDS SUMMARY | 2025-07-11 04:26 | XMS_ITS | Encounter Summary ---
Author Organization [employer] ([place], [place], [place], [place], [place]) Address [address] [place] [address] Care Team Providers Care Personal Lines Account Manager Name Role Phone Robert Batista MD Primary Care Provider [phone] Encounter Details Date Type Department Care Team (Late st Contact Info) Description 01/09/2021 Transcribed Document [facility] [place] [address] [place] [address] ProviderMacrina MD [address] [place], [place] [phone] Social History Tobacco Use Types Packs/Day Years [...] 8:11 EDT Heart Rate Monitored 106 bpm [place] 01/09/2021 6:45 EDT Systolic Blood Pressure 129 [...] on filedocumented in this encounter Care Teams Personal Lines Account Manager Relationship Specialty Start Date End Date Robert Batista MD [address] [place] [address] PCP - General Family Medicine 07/04/25 documented as of this encounter
--- OUTSIDE RECORDS SUMMARY | 2025-07-11 04:26 | XMS_ITS | Encounter Summary ---
Author Organization [employer] ([place], [place], [place], [place], [place]) Address [address] [place] [address] Care Team Providers Care Phytopathology Teacher Name Role Phone Robert Batista MD Primary Care Provider [phone] Encounter Details Date Type Department Care Team (Late st Contact Info) Description 01/15/2021 Transcribed Document [facility] [place] [facility] [place] [facility] [address] ProviderMacrina MD [address] [place] [address] Social History Tobacco Use Types Packs/Day Years Used Date Smoking Tobacco: Never Assessed Sex and Gender Information Value Date Recorded Sex Assigned at Not on file Legal Sex Male 1:13 PM CDT Gender Identity Not on file Sexual Orientation Not on file documented as of this encounter Miscellaneous Notes * Cerner Conversion Note - Macrina [place] MD - 01/15/2021 3:00 AM CDT Nutrition Assessment [...] issues. Plan for pt to d/c to [facility]. 01/11: High TF f/up. On supplemental O2. [...] Nutrition : Continue current enteral nutrition regimen Aleax Dukes Dietitian - 01/15/2021 14:00 EDT Monitoring/Evaluation Energy Intake : Total energy intake Food Intake : Amount of food Protein Intake : Total protein Weight Status : Weight Maintanence Gastrointestinal Function : Bowel Function Alexa Dukes Dietitian - 01/15/2021 14:00 EDT Nutrition Recommendations Dietitian Recommendations : 1. Continue Osmolite 1.5 @ 50ml/hr. RD to d/c [id number] now that pt is on floor (provides 1650 kcal, 68g PRO). FW per MD. Goal: meet est needs 2. Monitor elytes and replace prn Goal: wnls 3. Obtain wt 2x weekly. Noted fluctuations. goal: avoid sig wt changes 4. Monitor bowel fxn. Administer bowel regimen prn goal: normal BMs Risk: High Nutrition Care Level : High Alexa Dukes Dietitian - 01/15/2021 14:00 EDT documented in this encounter Plan of Treatment Not on file documented as of this encounter Visit Diagnoses Not on filedocumented in this encounter Care Teams Phytopathology Teacher Relationship Specialty Start Date End Date Robert Batista MD [address] [place] [address] PCP - General Family Medicine 07/04/25 documented as of this encounter
--- OUTSIDE RECORDS SUMMARY | 2025-07-11 04:26 | XMS_ITS | Encounter Summary ---
Author Organization [employer] ([place], [place], [place], [place], [place]) Address [address] [place] [address] Care Team Providers Care Alternative Energy Technician Name Role Phone Robert Batista MD Primary Care Provider [phone] Encounter Details Date Type Department Care Team (Late st Contact Info) Description 01/09/2021 Transcribed Document [facility] [place] [facility] [place] [address] ProviderMacrina MD [address] [place], [place] [address] Social History Tobacco Use Types Packs/Day Years Used Date Smoking Tobacco: Never Assessed Sex and Gender Information Value Date Recorded Sex Assigned at Not on file Legal Sex Male 1:13 PM CDT Gender Identity Not on file Sexual Orientation Not on file documented as of this encounter Miscellaneous Notes * Cerner Conversion Note - Macrina [place] MD - 01/09/2021 7:45 AM CDT On Going Discharge Planning Entered On: 01/09/2021 7:48 EDT Performed On: 01/09/2021 7:45 EDT by SOPHY RM Rn-Railroad Signal TechnicianDietetics Director Progress Note Discharge Arrangements : Patient Post-Acute [...] Unresolved : Clinical Condition of Patient SOPHY RM, Rn-Railroad Signal Technician - 01/09/2021 7:45 EDT Narrative Progress Note [...] #12 - Electiv TAVR/LVentTear/Cardiac Tamponade SOPHY RM Rn-Railroad Signal Technician - 01/08/21 14:56:21 HD#12; ELOS 3; LRR; BOOST 6; POD #12 - Electiv TAVR/LVentTear/Cardiac Tamponade/Embolic Strokes w/ R side weakness; RA; IS/FVD encouraged; report pt with delerium/lethargy overnight - pulled out IV; PICC ordered today; R arm weakness; Corpak/TF - failed ST evaluation - improving; DCP Rehab; continue to follow SOPHY RM, Rn-Railroad Signal Technician - 01/08/21 14:58:32 HD#11; ELOS 3; MRR; BOOST 6; POD#11 - Elective TAVR/LVentTear/Cardiac Tamponade; 02=2L; Maxipime/Ancef; IV Bumex; working w/therapy and stood at side of bed; SOPHY RM, Rn-Railroad Signal Technician - 01/07/21 14:34:53 HD#11; ELOS 3; MRR; BOOST 6; POD#11 - Elective TAVR/LVentTear/Cardiac Tamponade; 02=2L; Maxipime/Ancef; IV Bumex; working w/therapy and stood at side of bed; ST - ongoing rec for NPO r/t dysphagia - tx; instrumental 3-4 days; Corpak/TF; DCP anticipate rehab; initial referrals placed thru [facility] and list w/post acute star ratings provided to pt for choicing. SOPHY RM Rn-Railroad Signal Technician - 01/07/21 14:36:37 HD#8; ELOS 3; LRR; BOOST 6; POD#8 - Elec TAVR/LVentTear/Cardiac Tamponade - intubated fi02 100; awake/calm/following commands; bronchoscopy scheduled today; SBT; T=101.2; MRI - diffuse scattered bilateral infarcts; Dr. Navarro states during MDR that if pt is unable to successfully wean over weekend will need trach/peg consult on Thursday; continue to follow; will need therapy evaluations when extubated. SOPHY RM Rn-Railroad Signal Technician - 01/04/21 15:16:12 HD#7; ELOS 3; LRR; BOOST 6; POD#7 - Elective TAVR/LVentTear/CardiacTamponade/Arrest - intubated fi02 40/peep 8; SBT x 2 hr; Fent/Precedex gtt; Corpak/TF; Humza CT in place; Neurology following - MRI diffuse scattered bilateral infarcts; pt w/improvement in movement of R side; PT/OT evaluations when extubated; DCP TBD - likely rehab. SOPHY RM Rn-Railroad Signal Technician - 01/03/21 15:03:09 HD#6; ELOS 3; LRR; BOOST 6; POD #6 - Electiv TAVR/L Vent Tear/Cardiac Tamponode/Arrest - reintubated 01/01; fi02 40; Levo/Fent/Precedex gtt; wean sedation - on SBT 2hr TID; T=99.9; Dr. Navarro states during MDR that pt's spouse aware may need trach/peg; DCP TBD pending progress. SOPHY RM Rn-Railroad Signal Technician - 01/02/21 14:55:12 HD#5; ELOS 3; LRR; BOOST 6; POD #5 - Elective TAVR/L Ventrial Tear/Cardiac Tamponode; extubated on 12/31 required reintubation today fi02 60/peep 8; Precedex/Fent gtt; Corpak/TF; IV Zosyn; CT draining; T=100; DCP TBD pending progress; will need therapy evals when appropriate. SOPHY RM Rn-Railroad Signal Technician - 01/01/21 14:47:57 HD#4; ELOS 3; LRR; POD#4 - Electiv TAVR; L Ventrical Tear; intubated fi02 50; Cardene gtt; Corpak to be placed and TF initiated; SBT today; following commands; Head MRI ordered; possible extubation post MRI; no movement noted on R side; will need PT/OT evaluations when extubated; DCP pending progress - likely rehab. SOPHY RM Rn-Railroad Signal Technician - 12/31/20 14:58:43 DCP TBD - pending progress; OP Cardiac Rehab referral placed thru [facility]. SOPHY RM Rn-Railroad Signal Technician - 12/28/20 12:42:03 SOPHY RM Rn-Railroad Signal Technician - 01/09/2021 7:45 EDT documented in this encounter Plan of Treatment Not on file documented as of this encounter Visit Diagnoses Not on filedocumented in this encounter Care Teams Alternative Energy Technician Relationship Specialty Start Date End Date Robert Batista MD [address] [place] [address] PCP - General Family Medicine 07/04/25 documented as of this encounter
--- OUTSIDE RECORDS SUMMARY | 2025-07-11 04:26 | XMS_ITS | Encounter Summary ---
Author Organization [employer] ([place], [place], [place], [place], [place]) Address [address] [place] [address] Care Team Providers Care Operations Vice President Name Role Phone Robert Batista MD Primary Care Provider [phone] Encounter Details Date Type Department Care Team (Late st Contact Info) Description 12/31/2020 Transcribed Document [facility] Pulm & Critical Care Medicine [address] [place] [address] [place], [place] [id number] [place] [address] [place] [address] [address] [place] [address] Social History Tobacco Use Types Packs/Day Years [...] balance. WBC 10.8, low grade fevers 100.9 6/6: Remains intubated. No sedation since yesterday evening. [...] WBC 13.1, low grade temp 101.1 temp. 6/: Remains intubated without sedated on PS trial. [...] Medical Aortic valve stenosis / SNOMED CT 416638306 / Confirmed At risk for sleep apnea / IMO [id number] / Confirmed Colorectal surgery / SNOMED CT 6707160290 / Confirmed HTN - Hypertension / SNOMED CT 5759030129 / Confirmed, Active Problems (13) Aortic stenosis, [...] (Last four charted values) WBC H 13.4 (DEC 07) H 13.1 (CESAR 06) H 12.8 [...] 03) H 14.3 (CESAR 03) H 18.7 (DEC 03) INR 1.1 (DEC 04) H 1.7 (CESAR 03) H 1.4 (DEC 03) H 1.8 (DEC 03) PTT 27.8 (DEC 05) H 62.4 (CESAR 03) H 37.3 (CESAR 03) H 55.9 (DEC 03) AST H 78 (CESAR 06) H 125 (CESAR 05) H 141 (CESAR 04) H 179 (DEC 03) ALT 35 (DEC 06) 58 (CESAR 05) H 85 (CESAR 04) H 108 (CESAR 03) ALK P 64 (DEC 06) 55 (CESAR 05) 53 (CESAR 04) 46 (DEC 03) T Bili H 2.2 (DEC 06) H 1.3 (DEC 05) H 2.2 (DEC 04) H 1.5 (DEC 03) PTN L 5.2 (DEC 06) L 4.6 (DEC 05) L 4.8 (DEC 04) L 4.3 (DEC 27) ALB L 2.4 (DEC 06) L 2.4 [...] 24 Hours) Radiology Results (Last 48 hours) [id number] -- 12/27/2020 06:39 CR Chest 1 Vw [...] by Mt Mohan PA-C, RBeatriceTBeatrice (N), Kieran Lester M T.I have personally viewed, interpreted and [...] by Mt Mohan PA-C, RBeatriceT. (N), C Trevon M T.I have personally viewed, interpreted and [...] team, including critical care team, CCRN, RT., Cutting Machine Tender , case management and clinical pharmacist. I [...] CXR and labs in AM NTS with daily/[place] catheter as needed Head of bed elevation more than 45 degree thank you Full code Prognosis is guarded high risk for reintubation Disposition intensive care unit I discussed with cardiothoracic surgery LUCÍA Stinson, I discussed with Dr. Sainz car salter, possible need for neurology consultation will defer [...] on filedocumented in this encounter Care Teams Operations Vice President Relationship Specialty Start Date End Date Robert Batista MD [address] [place] [address] PCP - General Family Medicine 07/04/25 documented as of this encounter
--- OUTSIDE RECORDS SUMMARY | 2025-07-11 04:26 | XMS_ITS | Encounter Summary ---
Author Organization [employer] ([place], [place], [place], [place], [place]) Address [address] [place] [address] Care Team Providers Care Aircraft Metalsmith Name Role Phone Robert Batista MD Primary Care Provider [phone] Encounter Details Date Type Department Care Team (Late st Contact Info) Description 01/03/2021 Transcribed Document [facility] [place] Family Medicine [address] [place] [address] ProviderMacrina MD [address] [place] [address] Social History Tobacco Use Types Packs/Day Years Used Date Smoking Tobacco: Never Assessed Sex and Gender Information Value Date Recorded Sex Assigned at Not on file Legal Sex Male 1:13 PM CDT Gender Identity Not on file Sexual Orientation Not on file documented as of this encounter Miscellaneous Notes * Cerner Conversion Note - Macrina ProviderMD - 01/03/2021 9:[address] [...] on filedocumented in this encounter Care Teams Aircraft Metalsmith Relationship Specialty Start Date End Date Batista, Robert C, MD [place], [place] [address] PCP - General Family Medicine 07/04/25 documented as of this encounter
--- OUTSIDE RECORDS SUMMARY | 2025-07-11 04:26 | XMS_ITS | Encounter Summary ---
Author Organization [employer] ([place], [place], [place], [place], [place]) Address [address] [place] [address] Care Team Providers Care Asp Developer Name Role Phone Robert Batista MD Primary Care Provider [phone] Encounter Details Date Type Department Care Team (Late st Contact Info) Description 01/10/2021 Transcribed Document [facility] [place] [facility] [place] [address] ProviderMacrina MD [address] [place], [place] [id number] Social History Tobacco Use Types Packs/Day Years Used Date Smoking Tobacco: Never Assessed Sex and Gender Information Value Date Recorded Sex Assigned at Not on file Legal Sex Male 1:13 PM CDT Gender Identity Not on file Sexual Orientation Not on file documented as of this encounter Miscellaneous Notes * Cerner Conversion Note - Macrina [place] MD - 01/10/2021 8:17 AM CDT On Going Discharge Planning Entered On: 01/10/2021 8:19 EDT Performed On: 01/10/2021 8:17 EDT by SOPHY RM Rn-Workgroup LeaderSales Service Manager Progress Note Discharge Arrangements : Patient Post-Acute [...] : Clinical Condition of Patient SOPHY RM Rn-Workgroup Leader - 01/10/2021 8:17 EDT Narrative Progress Note [...] Corpak/TF; DCP rehab - improving. SOPHY RM Rn-Workgroup Leader - 01/09/21 07:48:59 HD#12; ELOS 3; LRR; BOOST 6; POD #12 - Electiv TAVR/LVentTear/Cardiac Tamponade SOPHY RM Rn-Workgroup Leader - 01/08/21 14:56:21 HD#12; ELOS 3; LRR; BOOST 6; POD #12 - Electiv TAVR/LVentTear/Cardiac Tamponade/Embolic Strokes w/ R side weakness; RA; IS/FVD encouraged; report pt with delerium/lethargy overnight - pulled out IV; PICC ordered today; R arm weakness; Corpak/TF - failed ST evaluation - improving; DCP Rehab; continue to follow SOPHY RM Rn-Workgroup Leader - 01/08/21 14:58:32 HD#11; ELOS 3; MRR; BOOST 6; POD#11 - Elective TAVR/LVentTear/Cardiac Tamponade; 02=2L; Maxipime/Ancef; IV Bumex; working w/therapy and stood at side of bed; SOPHY RM Rn-Workgroup Leader - 01/07/21 14:34:53 HD#11; ELOS 3; MRR; BOOST 6; POD#11 - Elective TAVR/LVentTear/Cardiac Tamponade; 02=2L; Maxipime/Ancef; IV Bumex; working w/therapy and stood at side of bed; ST - ongoing rec for NPO r/t dysphagia - tx; instrumental 3-4 days; Corpak/TF; DCP anticipate rehab; initial referrals placed thru [facility] and list w/post acute star ratings provided to pt for choicing. SOPHY RM Rn-Workgroup Leader - 01/07/21 14:36:37 HD#8; ELOS 3; LRR; BOOST 6; POD#8 - Elec TAVR/LVentTear/Cardiac Tamponade - intubated fi02 100; awake/calm/following commands; bronchoscopy scheduled today; SBT; T=101.2; MRI - diffuse scattered bilateral infarcts; Dr. Navarro states during MDR that if pt is unable to successfully wean over weekend will need trach/peg consult on Thursday; continue to follow; will need therapy evaluations when extubated. SOPHY RM Rn-Workgroup Leader - 01/04/21 15:16:12 HD#7; ELOS 3; LRR; BOOST 6; POD#7 - Elective TAVR/LVentTear/CardiacTamponade/Arrest - intubated fi02 40/peep 8; SBT x 2 hr; Fent/Precedex gtt; Corpak/TF; Humza CT in place; Neurology following - MRI diffuse scattered bilateral infarcts; pt w/improvement in movement of R side; PT/OT evaluations when extubated; DCP TBD - likely rehab. SOPHY RM Rn-Workgroup Leader - 01/03/21 15:03:09 HD#6; ELOS 3; LRR; BOOST 6; POD #6 - Electiv TAVR/L Vent Tear/Cardiac Tamponode/Arrest - reintubated 01/01; fi02 40; Levo/Fent/Precedex gtt; wean sedation - on SBT 2hr TID; T=99.9; Dr. Navarro states during MDR that pt's spouse aware may need trach/peg; DCP TBD pending progress. SOPHY RM Rn-Workgroup Leader - 01/02/21 14:55:12 HD#5; ELOS 3; LRR; BOOST 6; POD #5 - Elective TAVR/L Ventrial Tear/Cardiac Tamponode; extubated on 12/31 required reintubation today fi02 60/peep 8; Precedex/Fent gtt; Corpak/TF; IV Zosyn; CT draining; T=100; DCP TBD pending progress; will need therapy evals when appropriate. SOPHY RM Rn-Workgroup Leader - 01/01/21 14:47:57 HD#4; ELOS 3; LRR; POD#4 - Electiv TAVR; L Ventrical Tear; intubated fi02 50; Cardene gtt; Corpak to be placed and TF initiated; SBT today; following commands; Head MRI ordered; possible extubation post MRI; no movement noted on R side; will need PT/OT evaluations when extubated; DCP pending progress - likely rehab. SOPHY RM Rn-Workgroup Leader - 12/31/20 14:58:43 DCP TBD - pending progress; OP Cardiac Rehab referral placed thru [facility]. SOPHY RM Rn-Workgroup Leader - 12/28/20 12:42:03 SOPHY RM Rn-Workgroup Leader - 01/10/2021 8:17 EDT documented in this encounter Plan of Treatment Not on file documented as of this encounter Visit Diagnoses Not on filedocumented in this encounter Care Teams Asp Developer Relationship Specialty Start Date End Date Robert Batista MD [address] [place] [address] PCP - General Family Medicine 07/04/25 documented as of this encounter
--- OUTSIDE RECORDS SUMMARY | 2025-07-11 04:26 | XMS_ITS | Encounter Summary ---
Author Organization [employer] ([place], [place], [place], [place], [place]) Address [address] [place] [address] Care Team Providers Care Adjuster Arbitrator Name Role Phone Robert Batista MD Primary Care Provider [phone] Encounter Details Date Type Department Care Team (Late st Contact Info) Description 01/15/2021 Transcribed Document [facility] [place] Family Medicine [address] [place] [address] ProviderMacrina MD [address] [place] [address] Social History Tobacco Use Types Packs/Day Years Used Date Smoking Tobacco: Never Assessed Sex and Gender Information Value Date Recorded Sex Assigned at Not on file Legal Sex Male 1:13 PM CDT Gender Identity Not on file Sexual Orientation Not on file documented as of this encounter Miscellaneous Notes * Cerner Conversion Note - Macrina ProviderMD - 01/15/2021 5:00 PM CDT Chart Check - Review Order Profile Entered On: 01/15/2021 15:02 EDT Performed On: 01/15/2021 17:00 EDT by Pavel Rizvi, Master Control Engineer-Student Nurse Chart Check Powerplans Initiated/Discontinued as Appropriate : Not applicable All Active Orders Reviewed : Yes Pavel Rizvi, Master Control Engineer-Student Nurse - 01/15/2021 15:02 EDT documented in this encounter Plan of Treatment Not on file documented as of this encounter Visit Diagnoses Not on filedocumented in this encounter Care Teams Adjuster Arbitrator Relationship Specialty Start Date End Date Robert Batista MD [address] [place], [place] [address] PCP - General Family Medicine 07/04/25 documented as of this encounter
--- OUTSIDE RECORDS SUMMARY | 2025-07-11 04:26 | XMS_ITS | Encounter Summary ---
Author Organization [employer] ([place], [place], [place], [place], [place]) Address [address] [place] [address] Care Team Providers Care Head Sampler Name Role Phone Robert Batista MD Primary Care Provider [phone] Encounter Details Date Type Department Care Team (Late st Contact Info) Description 01/09/2021 Transcribed Document [facility] [place] Family Medicine [address] [place] [address] ProviderMacrina MD [address] [place] [address] Social History Tobacco Use Types Packs/Day Years [...] Ministry Provided to : Patient, Family/Significant other Congregation Preference : [employer] LAVERN VALDIVIA Chaplain - 01/09/2021 20:33 EDT [...] on filedocumented in this encounter Care Teams Head Sampler Relationship Specialty Start Date End Date Robert Batista MD [address] [place], [place] [address] PCP - General Family Medicine 07/04/25 documented as of this encounter
--- OUTSIDE RECORDS SUMMARY | 2025-07-11 04:26 | XMS_ITS | Encounter Summary ---
Author Organization [employer] ([place], [place], [place], [place], [place]) Address [address] [place] [address] Care Team Providers Care Explosive Man Name Role Phone Robert Batista MD Primary Care Provider [phone] Encounter Details Date Type Department Care Team (Late st Contact Info) Description 12/31/2020 Transcribed Document [facility] [place] Family Medicine [address] [place] [address] ProviderMacrina MD [address] [place] [address] Social History Tobacco Use Types [...] Performed On: 12/31/2020 5:00 EDT by PEEWEE SMITH, RN Height and Weight, Routine Routine Weight Source : Bed scale Routine Weight Entry Format : Metric Routine Weight, Kilograms : 74.9 kg(Converted to: 165 lb 2 oz) Routine Weight Calculation : 74.9 kg Height Source : Measured Height Entry Format : [place] Height, Feet : 0 ft Height, Inches : 67.75 Inch Clinical Height : 172.09 cm Body Surface Area (BSA), Routine : 1.88 m2 Body Mass Index (BMI), Routine : 25.29 kg/m2 PEEWEE SMITH RN - 12/31/2020 3:29 EDT documented in this encounter Plan of Treatment Not on file documented as of this encounter Visit Diagnoses Not on filedocumented in this encounter Care Teams Explosive Man Relationship Specialty Start Date End Date Robert Batista MD [address] [place], [place] [address] PCP - General Family Medicine 07/04/25 documented as of this encounter
--- OUTSIDE RECORDS SUMMARY | 2025-07-11 04:26 | XMS_ITS | Encounter Summary ---
Author Organization [employer] ([place], [place], [place], [place], [place]) Address [address] [place] [address] Care Team Providers Care Director Sales And Marketing Name Role Phone Robert Batista MD Primary Care Provider [phone] Encounter Details Date Type Department Care Team (Late st Contact Info) Description 01/16/2021 Transcribed Document [facility] [place] [facility] [place] [address] ProviderMacrina MD [address] [place] [id number] Social History Tobacco Use Types Packs/Day Years [...] 0.5 MCG/KG/. Awake and following commands, positive finished cloth examiner in bilateral hands. MRI brain yesterday revealed [...] 180s. 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 but weaker on [...] At risk for sleep apnea / IMO [id number] / Confirmed Colorectal surgery / SNOMED CT 9372345163 / Confirmed Aortic valve stenosis / SNOMED CT 262990605 / Confirmed HTN - Hypertension / SNOMED CT 3206249796 / Confirmed At risk for violence / IMO [id number] / Confirmed, Active Problems (14) Aortic stenosis, [...] 05:35) 98 (JAN 15 20:37) Apical HR 84 (JAN 16 11:01) 84 (JAN 16 11:01) 84 (JAN 16 11:01) Mon HR 93 (JAN 16 05:35) 84 (JAN 16 03:12) 96 (JAN 15 18:24) Resp Rate 20 (JAN 15 18:24) 20 (JAN 15 18:24) 20 (JAN 15 18:24) SBP 105 (JAN 16 05:35) 104 (JAN 15 18:24) 126 (JAN 16 03:12) DBP 63 (JAN 16 05:35) L 57 (JAN 16 03:12) 76 (JAN 15 20:37) MAP 77 (JAN 16 05:35) 75 (DEC 22 18:24) 88 (DEC 22 20:37) SpO2 97 (JAN 16 08:39) 96 (JAN 15 18:24) 97 (JAN 16 08:39) Intake & [...] WBC H 10.3 (JAN 16) H 11.2 (JAN 15) H 11.3 (DEC 21) H 11.9 (DEC 20) HB L 10.7 (JAN 16) L 10.5 (JAN 15) L 9.6 (DEC 21) L 9.5 (CESAR 20) HCT L 32.9 (DEC 23) L 33.2 (CESAR 22) L 29.9 (CESAR 21) L 29.4 (CESAR 20) Plt H 517 (DEC 23) H 535 (DEC 22) H 460 (DEC 21) H 490 (CESAR 20) Na L 132 (DEC 23) L 133 (CESAR 22) L 133 (CESAR 21) L 135 (CESAR 20) K 4.7 (CESAR 23) 5.0 (CESAR 22) 4.5 (CESAR 21) 4.4 (CESAR 20) Cl L 99 (DEC 23) L 100 (CESAR 22) L 101 [...] 24 Hours) Radiology Results (Last 48 hours) [id number] -- 12/27/2020 06:39 CR Chest 1 Vw [...] from inpatient rehab. Recommend transfer to [facility] for inpatient rehab. Pulmonary team will [...] Discussed with SHYAM ZAVALA. Electronically signed by [facility] Conversion Scanning Tech Cerner at 11/10/2022 9:28 AM CDT documented in this encounter Plan of Treatment Not on file documented as of this encounter Visit Diagnoses Not on filedocumented in this encounter Care Teams Director Sales And Marketing Relationship Specialty Start Date End Date Robert Batista MD [address] [place], [place] [phone] PCP - General Family Medicine 07/04/25 documented as of this encounter
--- OUTSIDE RECORDS SUMMARY | 2025-07-11 04:26 | XMS_ITS | Encounter Summary ---
Author Organization [employer] ([place], [place], [place], [place], [place]) Address [address] [place] [address] Care Team Providers Care Satellite Tv Technician Name Role Phone Robert Batista MD Primary Care Provider [phone] Encounter Details Date Type Department Care Team (Late st Contact Info) Description 01/15/2021 Transcribed Document [facility] [place] Family Medicine [facility] [place] [address] ProviderMacrina MD [address] [place], [place] [address] Social History Tobacco Use Types Packs/Day Years [...] 0.5 MCG/KG/. Awake and following commands, positive dinkey operator slate in bilateral hands. MRI brain yesterday revealed [...] 180s. 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 on [...] Problems Aortic valve stenosis / SNOMED CT 206624815 / Confirmed Arthritis of right knee / SNOMED CT 1068354828 / Confirmed At risk for sleep apnea / IMO 28168291 / Confirmed At risk for violence / IMO 44873774 / Confirmed Chronic anxiety / SNOMED CT 100037770 / Confirmed Back pain, chronic / SNOMED CT 137743715 / Confirmed Colorectal surgery / SNOMED CT 7967491636 / Confirmed Disorder of prostate / SNOMED CT 43698930 / Confirmed GERD - Gastro-esophageal reflux disease / SNOMED CT 7540348219 / Confirmed H/O peripheral neuropathy / SNOMED CT 587334660 / Confirmed feet tingle all the time HTN - Hypertension / SNOMED CT 1007715568 / Confirmed Hyperlipidemia / SNOMED CT 78196250 / Confirmed Hypertension / SNOMED CT 86542044 / Confirmed Aortic stenosis, severe / SNOMED CT 0370542694 / Confirmed Resolved: Cancer of colon / SNOMED CT 1615091518, Active Problems (14) Aortic stenosis, severe Aortic valve stenosis Arthritis of right knee At risk for sleep apnea At risk for violence Back pain, chronic Chronic anxiety Colorectal surgery Disorder of prostate GERD - Gastro-esophageal reflux disease H/O peripheral neuropathy HTN - Hypertension Hyperlipidemia Hypertension Physical Examination VS/Measurements Vitals Signs (last 24 hrs) Last Charted Minimum Maximum Temp 98 (DEC 22 05:40) 97.8 (DEC 21 20:24) 98.5 (CESAR 21 17:04) Apical HR H 105 (JAN 15 09:18) H 105 (JAN 15 09:18) H 105 (JAN 15 09:18) Mon HR 113 (DEC 22 05:40) 94 (DEC 22 01:23) 113 (DEC 22 05:40) Resp Rate 16 (DEC 21 17:04) 16 (DEC 21 17:04) 16 (DEC 21 17:04) SBP 119 (DEC 22 05:40) 97 (DEC 21 17:04) 119 (DEC 22 05:40) DBP 79 (DEC 22 05:40) 63 (DEC 21 17:04) 79 (DEC 22 05:40) MAP 88 (JAN 15 05:40) 72 (DEC 21 17:04) 88 (DEC 22 05:40) SpO2 95 (DEC 21 19:50) 94 (DEC 21 17:04) 95 (DEC 21 19:50) Intake & Output Totals Last 24 [...] HB L 10.5 (JAN 15) L 9.6 (CESAR 21) L 9.5 (CESAR 20) L 9.6 (CESAR 19) HCT L 33.2 (CESAR 22) L 29.9 (CESAR 21) L 29.4 (CESAR 20) L 29.6 (CESAR 19) Plt H 535 (CESAR 22) H [...] (CESAR 17) 1.2 (CESAR 16) PTN 7.0 (JAN 12) 6.7 (JAN 11) 6.5 (JAN 10) L 6.2 (JAN 09) ALB L 2.6 (JAN 12) L 2.6 (DEC 18) L 2.5 (DEC 17) L 2.4 (DEC 16) Troponin <0.015 [...] 24 Hours) Radiology Results (Last 48 hours) [id number] -- 12/27/2020 06:39 CR Chest 1 Vw [...] on filedocumented in this encounter Care Teams Satellite Tv Technician Relationship Specialty Start Date End Date Robert Batista MD [address] [place], [place] [id number] PCP - General Family Medicine 07/04/25 documented as of this encounter
--- OUTSIDE RECORDS SUMMARY | 2025-07-11 04:26 | XMS_ITS | Encounter Summary ---
Author Organization [employer] ([place], [place], [place], [place], [place]) Address [address] [place] [address] Care Team Providers Care Vice President Corporate Communications Name Role Phone Robert Batista MD Primary Care Provider [phone] Encounter Details Date Type Department Care Team (Late st Contact Info) Description 01/04/2021 Transcribed Document [facility] [place] Family [place] [address] ProviderMacrina MD [address] [place] [address] Social History Tobacco Use Types Packs/Day Years Used Date Smoking Tobacco: Never Assessed Sex and Gender Information Value Date Recorded Sex Assigned at Not on file Legal Sex Male 1:13 PM CDT Gender Identity Not on file Sexual Orientation Not on file documented as of this encounter Miscellaneous Notes * Cerner Conversion Note - Macrina Cordova MD - 01/04/2021 3:13 PM CDT On Going Discharge Planning Entered On: 01/04/2021 15:16 EDT Performed On: 01/04/2021 15:13 EDT by SOPHY RM Rn-Fitness Floor AttendantHull Builder Progress Note Discharge Arrangements : Patient Post-Acute [...] : Clinical Condition of Patient SOPHY RM Rn-Fitness Floor Attendant - 01/04/2021 15:13 EDT Narrative Progress Note [...] DCP TBD - likely rehab. SOPHY RM Rn-Fitness Floor Attendant - 01/03/21 15:03:09 HD#6; ELOS 3; LRR; BOOST 6; POD #6 - Electiv TAVR/L Vent Tear/Cardiac Tamponode/Arrest - reintubated 01/01; fi02 40; Levo/Fent/Precedex gtt; wean sedation - on SBT 2hr TID; T=99.9; Dr. Navarro states during MDR that pt's spouse aware may need trach/peg; DCP TBD pending progress. SOPHY RM Rn-Fitness Floor Attendant - 01/02/21 14:55:12 HD#5; ELOS 3; LRR; BOOST 6; POD #5 - Elective TAVR/L Ventrial Tear/Cardiac Tamponode; extubated on 12/31 required reintubation today fi02 60/peep 8; Precedex/Fent gtt; Corpak/TF; IV Zosyn; CT draining; T=100; DCP TBD pending progress; will need therapy evals when appropriate. SOPHY RM Rn-Fitness Floor Attendant - 01/01/21 14:47:57 HD#4; ELOS 3; LRR; POD#4 - Electiv TAVR; L Ventrical Tear; intubated fi02 50; Cardene gtt; Corpak to be placed and TF initiated; SBT today; following commands; Head MRI ordered; possible extubation post MRI; no movement noted on R side; will need PT/OT evaluations when extubated; DCP pending progress - likely rehab. SOPHY RM Rn-Fitness Floor Attendant - 12/31/20 14:58:43 DCP TBD - pending progress; OP Cardiac Rehab referral placed thru [facility]. SOPHY RM Rn-Fitness Floor Attendant - 12/28/20 12:42:03 SOPHY RM Rn-Fitness Floor Attendant - 01/04/2021 15:13 EDT documented in this encounter Plan of Treatment Not on file documented as of this encounter Visit Diagnoses Not on filedocumented in this encounter Care Teams Vice President Corporate Communications Relationship Specialty Start Date End Date Robert Batista MD [address] [place] [id number] PCP - General Family Medicine 07/04/25 documented as of this encounter
--- OUTSIDE RECORDS SUMMARY | 2025-07-11 04:26 | XMS_ITS | Encounter Summary ---
Author Organization [employer] ([place], [place], [place], [place], [place]) Address [address] [place] [address] Care Team Providers Care Hotel Security Officer Name Role Phone Robert Batista MD Primary Care Provider [phone] Encounter Details Date Type Department Care Team (Late st Contact Info) Description 01/16/2021 Transcribed Document [facility] [place] Family Medicine [address] [place] [address] ProviderMacrina MD [address] [place] [address] Social History Tobacco Use Types [...] 01/16/2021 10:20 EDT by JUAN MANUEL BRUMFIELD, SUPERINTENDENT PRESSURE General Information Visit Type, SUPERINTENDENT PRESSURE : Re-Evaluation Patient Orders : Speech Language Pathology Modified Barium Swallow Study -111 Start: 01/16/21 7:00:00 EDT, Routine, For Other (see special instructions), Dysphagia - ANANDA MILLER PA Speech Language Pathology Additional Tx - Start: 01/07/21 10:25:00 EDT, For Dysphagia Cognitive Other (use Special instructions), dysarthria, Continuous Order -111 Admission Date : Admission Date/Time: 12/27/20 06:39:00 Medical Chart Reviewed, SUPERINTENDENT PRESSURE : Yes Personal Devices : Personal Devices [...] stenosis 12/28/2020 12:00 Polyneuropathy, unspecified JUAN MANUEL BRUMFIELD, BENJY - 01/16/2021 10:20 EDT Therapy Diagnosis, SUPERINTENDENT PRESSURE : Pt presents with functional oral skills [...] Admission : NPO with corpak Intubation Comment, SUPERINTENDENT PRESSURE : 12/27-12/31, reintubated 01/01-01/05 Vital Signs RTF : Vitals Temp BP Pulse RR SpO2 FIO2 Date Wt(kg) Wt(lb) 01/07 09:00 ---- 171/80 --- 21 94 2.0L/m 06/14 08:29 ---- ----- --- 16 99 --- [...] 10:20 EDT General Status Patient Received Status, SUPERINTENDENT PRESSURE : Up in chair Patient Left Status, SUPERINTENDENT PRESSURE : Up in chair JUAN MANUEL BRUMFIELD [...] Clinician Consistencies Trialed MB/VFSS : Thin by straw, Pudding JUAN MANUEL BRUMFIELD, BENJY - 01/16/2021 [...] - 01/16/2021 10:20 EDT Therapy Indication Assessment SUPERINTENDENT PRESSURE Indicated : Yes SUPERINTENDENT PRESSURE Problem List : Impaired, Memory, Impaired, Motor Speech, Impaired, Swallowing JUAN MANUEL BRUMFIELD SLP - 01/16/2021 10:20 EDT Swallow Plan/Goals Treatment Frequency, SUPERINTENDENT PRESSURE : 5 times per wk Treatment Plan Est w/Pt/Caregvr, Swallow : Yes JUAN MANUEL BRUMFIELD SLP - 01/16/2021 10:20 EDT Swallow LTG Grid SUPERINTENDENT PRESSURE Halfway Goal #1 SUPERINTENDENT PRESSURE Halfway Goal #2 Swallow LTG : Establish safe oral diet without aspiration Improve swallowing function for oral intake Status : Progressing, continue Progressing, continue JUAN MANUEL BRUMFIELD, SUPERINTENDENT PRESSURE - 01/16/2021 10:20 EDT JUAN MANUEL BRUMFIELD, SUPERINTENDENT PRESSURE - 01/16/2021 10:20 EDT Swallow Goals Grid [...] 01/10/2021 EDT 01/10/2021 EDT JUAN MANUEL BRUMFIELD, SUPERINTENDENT PRESSURE - 01/16/2021 10:20 EDT JUAN MANUEL BRUMFIELD, SUPERINTENDENT PRESSURE - 01/16/2021 10:20 EDT JUAN MANUEL BRUMFIELD, SUPERINTENDENT PRESSURE - 01/16/2021 10:20 EDT JUAN MANUEL BRUMFIELD, SUPERINTENDENT PRESSURE - 01/16/2021 10:20 EDT Goal #5 Goal [...] Date Met : 01/10/2021 EDT JUAN MANUEL BRUMFIELD, BENJY - 01/16/2021 10:20 EDT JUAN MANUEL BRUMFIELD, SUPERINTENDENT PRESSURE - 01/16/2021 10:20 EDT JUAN MANUEL BRUMFIELD, SUPERINTENDENT PRESSURE - 01/16/2021 10:20 EDT JUAN MANUEL BRUMFIELD, SUPERINTENDENT PRESSURE - 01/16/2021 10:20 EDT Education Barriers To Learning : Cognitive deficit, Emotional state Individuals Taught : Patient JUAN MANUEL BRUMFIELD SLP - 01/16/2021 10:20 EDT SUPERINTENDENT PRESSURE Education Assessment Grid 1 Aspiration : Needs further teaching Dysphagia : Needs further teaching Dysphagia, Effects of Impairment : Needs further teaching MBSS/VFSS/FEES Results : Needs further teaching Non-Oral Nutrition : Needs further teaching, Corpak v. PEG JUAN MANUEL BRUMFIELD SLP - 01/16/2021 10:20 EDT SUPERINTENDENT PRESSURE Education Assessment Grid 2 Signs of Distress with Oral Intake : Needs further teaching, and silent aspiration JUAN MANUEL BRUMFIELD SLP - 01/16/2021 10:[address] [facility] SUPERINTENDENT PRESSURE Charges Modified Barium Swallow : 1 JUAN MANUEL BRUMFIELD SLP - 01/16/2021 10:20 EDT Anticipated Discharge Needs, SUPERINTENDENT PRESSURE Anticipated Discharge to : Rehab, high intensity Recommend Continued Therapy at Discharge : Yes (Comment: s4 [JUAN MANUEL BRUMFIELD SLP - 01/16/2021 10:20 EDT] ) JUAN MANUEL BRUMFIELD SLP - 01/16/2021 10:20 EDT documented in this encounter Plan of Treatment Not on file documented as of this encounter Visit Diagnoses Not on filedocumented in this encounter Care Teams Hotel Security Officer Relationship Specialty Start Date End Date Robert Batista MD [address] [place], [place] [phone] PCP - General Family Medicine 07/04/25 documented as of this encounter
--- OUTSIDE RECORDS SUMMARY | 2025-07-11 04:26 | XMS_ITS | Encounter Summary ---
Author Organization [employer] ([place], [place], [place], [place], [place]) Address [address] [place] [address] Care Team Providers Care Flue Blower Name Role Phone Robert Batista MD Primary Care Provider [phone] Encounter Details Date Type Department Care Team (Late st Contact Info) Description 01/15/2021 Transcribed Document [facility] [place] Family [facility] [place] [address] ProviderMacrina MD [address] [place], [place] [address] Social History Tobacco Use Types Packs/Day Years [...] 1012. 01/02/21: POD#6 Intubated and sedated on [id number]/hr and Precedex .6mcg/kg/min. He is also on [...] 2L/NC TF 50ml/hr Continue P.T. Transfer to [facility] Pt will need rehab when clinically ready 01/11/21 POD#15 O2 91% 2L/NC TF 50ml/hr Continue P.T. Awaiting transfer to [facility] 01/12/2021 POD #16 Continues tube feedings, tolerating Steady progress 01/13/2021 POD #17 ALINA Guaney Will need rehab placement 01/14/2021 POD #18 Patient still not cleared for PO [facility] has accepted the patient, but he needs a PEG. Will consult general surgery for PEG placement prior to transfer to [facility] 01/15/2021 POD #19 Planning to repeat swallow evaluation. Depending on results, may require PEG prior to transfer to [facility]. Diagnosis Anxiety - Pre-Op Diagnosis, Medical. Cardiac [...] Pre-Op Diagnosis, Medical. Electronically signed by Elmer, [facility] Conversion Motorized Squad Commanding Officer Cerner at 11/10/2022 9:30 AM CDT documented in this encounter Plan of Treatment Not on file documented as of this encounter Visit Diagnoses Not on filedocumented in this encounter Care Teams Flue Blower Relationship Specialty Start Date End Date Robert Batista MD [address], [place] [phone] PCP - General Family Medicine 07/04/25 documented as of this encounter
--- OUTSIDE RECORDS SUMMARY | 2025-07-11 04:26 | XMS_ITS | Encounter Summary ---
Author Organization [employer] ([place], [place], [place], [place], [place]) Address [address] [place] [address] Care Team Providers Care Scale Shooter Name Role Phone Robert Batista MD Primary Care Provider [phone] Encounter Details Date Type Department Care Team (Late st Contact Info) Description 01/16/2021 Transcribed Document [facility] [place] [facility] [place] [address] ProviderMacrina MD [address] [place] [address] Social History Tobacco Use Types Packs/Day Years Used Date Smoking Tobacco: Never Assessed Sex and Gender Information Value Date Recorded Sex Assigned at Not on file Legal Sex Male 1:13 PM CDT Gender Identity Not on file Sexual Orientation Not on file documented as of this encounter Miscellaneous Notes * Cerner Conversion Note - Macrina Cordova MD - 01/16/2021 5:30 PM CDT On Going Discharge Planning Entered On: 01/16/2021 17:33 EDT Performed On: 01/16/2021 17:30 EDT by ASHLEY CHAIDEZ RN-Dental PractitionerTan Room Supervisor Progress Note Discharge Arrangements : Patient Post-Acute [...] Attend Multidisciplinary Rounds? : Yes ASHLEY CHAIDEZ RN-Dental Practitioner - 01/16/2021 17:30 EDT Narrative Progress Note [...] around bed to chair with RWx modA. MBBS/STEAM TUNNEL FEEDER: Recommend PEG, plan is placement tomorrow. DCP: [facility] after PEG placed. Patient has traditional will not need a PA. Plan to [...] with RWx modA. DCP: Referral made to [facility], patient's 1st choice, via [facility]. bao Barnes said her MD would accept patient but would like for his PEG to be placed prior to discharge. Patient has traditional Medicare so he will not need a preauth. ASHLEY CHAIDEZ RN-Dental Practitioner - 01/14/21 15:53:43 HD#15; ELOS 3; LRR; BOOST 6; POD#15 - ElecTAVR/LVentTear/Tamponade = 02=1L; HO=328; TF/Corpak 50cc; voice improving; working w/ST for dysphagia; plan for repeat instrumental in 1 wk; ongoing therapy; spouse to provide choicing for STR; on transfer out of [facility]. SOPHY RM Rn-Dental Practitioner - 01/11/21 09:38:52 HD#14; ELOS 3; LRR; BOOST 6; POD#14 - ElecTAVR/LVentTear/Tamponade = 02=2L; BIPAP prn; Duonebs; Cefepime/Zosyn; FEES today; Cardiology managing Tacycardia; per LOS recommendation - pt referred to LTAC; likely DCP subacute rehab; anticipate transfer to floor soon. SOPHY RM Rn-Dental Practitioner - 01/10/21 08:19:07 HD#13; ELOS 3; LRR; BOOST 6; POD#13 - ElectiveTAVR/LVentTear/Tamponade - 02=2L; BIPAP prn for WOB/hs; Duonebs/IS/FVD encouraged; Patricio gtt; central line d/c 6/PICC placed; T=100; Maxipime; working with therapy - very weak; Mod-Max A x2 to EOB - not safe to stand; ST - failed/ongoing dysphagia tx; Corpak/TF; DCP rehab - improving. SOPHY RM Rn-Dental Practitioner - 01/09/21 07:48:59 HD#12; ELOS 3; LRR; BOOST 6; POD #12 - Electiv TAVR/LVentTear/Cardiac Tamponade SOPHY RM, Rn-Dental Practitioner - 01/08/21 14:56:21 HD#12; ELOS 3; LRR; BOOST 6; POD #12 - Electiv TAVR/LVentTear/Cardiac Tamponade/Embolic Strokes w/ R side weakness; RA; IS/FVD encouraged; report pt with delerium/lethargy overnight - pulled out IV; PICC ordered today; R arm weakness; Corpak/TF - failed ST evaluation - improving; DCP Rehab; continue to follow SOPHY RM Rn-Dental Practitioner - 01/08/21 14:58:32 HD#11; ELOS 3; MRR; BOOST 6; POD#11 - Elective TAVR/LVentTear/Cardiac Tamponade; 02=2L; Maxipime/Ancef; IV Bumex; working w/therapy and stood at side of bed; SOPHY RM Rn-Dental Practitioner - 01/07/21 14:34:53 HD#11; ELOS 3; MRR; BOOST 6; POD#11 - Elective TAVR/LVentTear/Cardiac Tamponade; 02=2L; Maxipime/Ancef; IV Bumex; working w/therapy and stood at side of bed; ST - ongoing rec for NPO r/t dysphagia - tx; instrumental 3-4 days; Corpak/TF; DCP anticipate rehab; initial referrals placed thru [facility] and list w/post acute star ratings provided to pt for choicing. SOPHY RM Rn-Dental Practitioner - 01/07/21 14:36:37 HD#8; ELOS 3; LRR; BOOST 6; POD#8 - Elec TAVR/LVentTear/Cardiac Tamponade - intubated fi02 100; awake/calm/following commands; bronchoscopy scheduled today; SBT; T=101.2; MRI - diffuse scattered bilateral infarcts; Dr. Navarro states during MDR that if pt is unable to successfully wean over will need trach/peg consult on Thursday; continue to follow; will need therapy evaluations when extubated. SOPHY RM Rn-Dental Practitioner - 01/04/21 15:16:12 HD#7; ELOS 3; LRR; BOOST 6; POD#7 - Elective TAVR/LVentTear/CardiacTamponade/Arrest - intubated fi02 40/peep 8; SBT x 2 hr; Fent/Precedex gtt; Corpak/TF; Humza CT in place; Neurology following - MRI diffuse scattered bilateral infarcts; pt w/improvement in movement of R side; PT/OT evaluations when extubated; DCP TBD - likely rehab. SOPHY RM Rn-Dental Practitioner - 01/03/21 15:03:09 HD#6; ELOS 3; LRR; BOOST 6; POD #6 - Electiv TAVR/L Vent Tear/Cardiac Tamponode/Arrest - reintubated 01/01; fi02 40; Levo/Fent/Precedex gtt; wean sedation - on SBT 2hr TID; T=99.9; Dr. Navarro states during MDR that pt's spouse aware may need trach/peg; DCP TBD pending progress. SOPHY RM, Rn-Dental Practitioner - 01/02/21 14:55:12 HD#5; ELOS 3; LRR; BOOST 6; POD #5 - Elective TAVR/L Ventrial Tear/Cardiac Tamponode; extubated on 12/31 required reintubation today fi02 60/peep 8; Precedex/Fent gtt; Corpak/TF; IV Zosyn; CT draining; T=100; DCP TBD pending progress; will need therapy evals when appropriate. SOPHY RM Rn-Dental Practitioner - 01/01/21 14:47:57 HD#4; ELOS 3; LRR; POD#4 - Electiv TAVR; L Ventrical Tear; intubated fi02 50; Cardene gtt; Corpak to be placed and TF initiated; SBT today; following commands; Head MRI ordered; possible extubation post MRI; no movement noted on R side; will need PT/OT evaluations when extubated; DCP pending progress - likely rehab. SOPHY RM Rn-Dental Practitioner - 12/31/20 14:58:43 DCP TBD - pending progress; OP Cardiac Rehab referral placed thru [facility]. SOPHY RM Rn-Dental Practitioner - 12/28/20 12:42:03 ASHLEY CHAIDEZ RN-Dental Practitioner - 01/16/2021 17:30 EDT Electronically signed by Olinda [place] Conversion Emergency Management Specialist Cerner at 11/10/2022 9:29 AM CDT documented in this encounter Plan of Treatment Not on file documented as of this encounter Visit Diagnoses Not on filedocumented in this encounter Care Teams Scale Shooter Relationship Specialty Start Date End Date Robert Batista MD [address] [place] [id number] PCP - General Family Medicine 07/04/25 documented as of this encounter
--- OUTSIDE RECORDS SUMMARY | 2025-07-11 04:26 | XMS_ITS | Encounter Summary ---
Author Organization [employer] ([place], [place], [place], [place], [place]) Address [address] [place] [address] Care Team Providers Care Amphibian Crewmember Name Role Phone Robert Batista MD Primary Care Provider [phone] Encounter Details Date Type Department Care Team (Late st Contact Info) Description 01/04/2021 Transcribed Document [facility] [place] Family Medicine [address] [place] [address] ProviderMacrina MD [address] [place] [address] Social History Tobacco Use Types Packs/Day Years Used Date Smoking Tobacco: Never Assessed Sex and Gender Information Value Date Recorded Sex Assigned at Not on file Legal Sex Male 1:13 PM CDT Gender Identity Not on file Sexual Orientation Not on file documented as of this encounter Miscellaneous Notes * Cerner Conversion Note - Macrina ProviderMD - 01/04/2021 5:00 PM CDT Chart Check - Review Order Profile Entered On: 01/04/2021 19:33 EDT Performed On: 01/04/2021 17:00 EDT by JAMES Inman, RN Chart Check Powerplans Initiated/Discontinued as Appropriate : Yes All Active Orders Reviewed : Yes JAMES Inman, RN - 01/04/2021 19:33 EDT Electronically signed by Elmer [facility] Conversion Broacher Cerner at 11/10/2022 9:15 AM CDT documented in this encounter Plan of Treatment Not on file documented as of this encounter Visit Diagnoses Not on filedocumented in this encounter Care Teams Amphibian Crewmember Relationship Specialty Start Date End Date Robert Batista MD [address] [place], [place] [phone] PCP - General Family Medicine 07/04/25 documented as of this encounter
--- OUTSIDE RECORDS SUMMARY | 2025-07-11 04:26 | XMS_ITS | Encounter Summary ---
Author Organization [employer] ([place], [place], [place], [place], [place]) Address [address] [place] [address] Care Team Providers Care Supervisor Quilting Name Role Phone Robert Batista MD Primary Care Provider [phone] Encounter Details Date Type Department Care Team (Late st Contact Info) Description 01/15/2021 Transcribed Document [facility] Cardiology [address] [place] [id number] [place] [address] [place] [address] [address] [place] [address] Social History Tobacco Use Types Packs/Day Years Used Date Smoking Tobacco: Never Assessed Sex and Gender Information Value Date Recorded Sex Assigned at Not on file Legal Sex Male 1:13 PM CDT Gender Identity Not on file Sexual Orientation Not on file documented as of this encounter Miscellaneous Notes * Cerner Conversion Note - Arthur Gomez MD - 01/15/2021 9:57 AM EDT Patient: JOSE ADORNO Age: 80 years Sex: Male : 1940 Associated Diagnoses: None Author: ARTHUR GOMEZ MD-CAR BASIC PCP: Robert Batista MD Primary Urinalysis Technician: Arthur Gomez MD Subjective Moved to telemetry. Still [...] 33.2 \ Radiology Results (Last 48 hours) [id number] -- 12/27/2020 06:39 CR Chest 1 Vw [...] s/p pericardiocentesis and surgical repair of LV [place]. *PEA Arrest; CODE called 10 minutes to [...] on filedocumented in this encounter Care Teams Supervisor Quilting Relationship Specialty Start Date End Date Robert Batista MD [address] [place] [phone] PCP - General Family Medicine 07/04/25 documented as of this encounter
--- OUTSIDE RECORDS SUMMARY | 2025-07-11 04:26 | XMS_ITS | Encounter Summary ---
Author Organization [employer] ([place], [place], [place], [place], [place]) Address [address] [place] [address] Care Team Providers Care Supervisor White Sugar Name Role Phone Robert Batista MD Primary Care Provider [phone] Encounter Details Date Type Department Care Team (Late st Contact Info) Description 01/10/2021 Transcribed Document [facility] Family Medicine [address] [place] [address] ProviderMacrina MD [address] [place] [address] Social History Tobacco Use Types Packs/Day Years Used Date Smoking Tobacco: Never Assessed Sex and Gender Information Value Date Recorded Sex Assigned at Not on file Legal Sex Male 1:13 PM CDT Gender Identity Not on file Sexual Orientation Not on file documented as of this encounter Miscellaneous Notes * Cerner Conversion Note - Macrina ProviderMD - 01/10/2021 5:00 PM CDT Chart Check - Review Order Profile Entered On: 01/10/2021 17:51 EDT Performed On: 01/10/2021 17:00 EDT by Belem Chiu, RN Chart Check Powerplans Initiated/Discontinued as Appropriate : Not applicable All Active Orders Reviewed : Yes Belem Chiu, RN - 01/10/2021 17:51 EDT documented in this encounter Plan of Treatment Not on file documented as of this encounter Visit Diagnoses Not on filedocumented in this encounter Care Teams Supervisor White Sugar Relationship Specialty Start Date End Date Robert Batista MD [address] [place] [address] PCP - General Family Medicine 07/04/25 documented as of this encounter
--- OUTSIDE RECORDS SUMMARY | 2025-07-11 04:26 | XMS_ITS | Encounter Summary ---
Author Organization [employer] ([place], [place], [place], [place], [place]) Address [address] [place] [address] Care Team Providers Care Hand Presser Name Role Phone Robert Batista MD Primary Care Provider [phone] Encounter Details Date Type Department Care Team (Late st Contact Info) Description 12/31/2020 Transcribed Document [facility] [place] Family Medicine [facility] [place] [address] ProviderMacrina MD [address] [place] [address] Social History Tobacco Use Types Packs/Day Years Used Date Smoking Tobacco: Never Assessed Sex and Gender Information Value Date Recorded Sex Assigned at Not on file Legal Sex Male 1:13 PM CDT Gender Identity Not on file Sexual Orientation Not on file documented as of this encounter Miscellaneous Notes * Cerner Conversion Note - Macrina ProviderMD - 12/31/2020 2:00 AM CDT Slip Injector And Applicator Details Entered On: 12/31/2020 3:31 EDT Performed [...] on filedocumented in this encounter Care Teams Hand Presser Relationship Specialty Start Date End Date Robert Batista MD [address], [place] [phone] PCP - General Family Medicine 07/04/25 documented as of this encounter
--- OUTSIDE RECORDS SUMMARY | 2025-07-11 04:26 | XMS_ITS | Encounter Summary ---
Author Organization [employer] ([place], [place], [place], [place], [place]) Address [address] [place] [address] Care Team Providers Care Metal Spraying Machine Operator Name Role Phone Robert Batista MD Primary Care Provider [phone] Encounter Details Date Type Department Care Team (Late st Contact Info) Description 01/10/2021 Transcribed Document [facility] [place] Family Medicine [facility] [place] [address] ProviderMacrina MD [address] [place] [address] Social History Tobacco Use Types [...] On: 01/10/2021 9:15 EDT by TREE VIVEROS, OPERATIONS EXPERT General Information Respiratory Assessment Comment : Nasal cannula TREE VIVEROS, OPERATIONS EXPERT - 01/10/2021 9:18 EDT Visit Type, OPERATIONS EXPERT : Re-Evaluation Patient Orders : Speech Language Pathology FEES -111 Start: 01/10/21 6:00:00 EDT, Routine, For Swallow Eval and Treat - BEATRICE VERONICA APRN Speech Language Pathology Additional Tx - Start: 01/07/21 10:25:00 EDT, For Dysphagia Cognitive Other (use Special instructions), dysarthria, Continuous Order -111 Admission Date : Admission Date/Time: 12/27/20 06:39:00 Medical Chart Reviewed, OPERATIONS EXPERT : Yes Personal Devices : Personal Devices [...] BENJY - 01/10/2021 9:15 EDT Therapy Diagnosis, OPERATIONS EXPERT : Pt presents with normal oral skills and severe pharyngeal dysphagia. Recommendations: 1. NPO with Corpak for nutrition/medication 2. Ok for ice after oral care 3. dysphagia tx 4. Repeat instrumental in 1 week TREE VIVEROS, BENJY - 01/10/2021 9:[address] : Fall prevention measures Previous Speech/Language Evaluations : none Previous Swallow Precautions : none in EMR Previous Cognitive Evaluations : none Diet/Intake Prior to Current Admission : regular Diet/Intake During Current Admission : NPO with corpak Intubation Comment, OPERATIONS EXPERT : 12/27-12/31, reintubated 01/01-01/05 Vital Signs RTF [...] Wt: 12/25 65.1 kg 143 lb TREE VIVEROS SLP - 01/10/2021 9:15 EDT General Status Patient Received Status, OPERATIONS EXPERT : Up in chair Patient Left Status, OPERATIONS EXPERT : Up in chair TREE VIVEROS SLP [...] Oral Mechanism for Daily Living : Intact OPERATIONS EXPERT Cough : Weak TREE VIVEROS SLP - [...] Impairment Severity : Severe Further Evaluation Required, OPERATIONS EXPERT : Repeat instrumental in 1 week prior [...] for ice in moderation after oral care. OPERATIONS EXPERT will continue dysphagia tx and repeat instrumental [...] - 01/10/2021 9:56 EDT Therapy Indication Assessment OPERATIONS EXPERT Indicated : Yes OPERATIONS EXPERT Interdisciplinary Consultation Needs : No Potential Barriers to OPERATIONS EXPERT : Acuity of illness OPERATIONS EXPERT Rehabilitation Potential : Guarded OPERATIONS EXPERT Potential Guarded Due to : severity of deficits TREE VIVEROS SLP - 01/10/2021 9:56 EDT Swallow Plan/Goals Treatment Frequency, OPERATIONS EXPERT : 5 times per wk Treatment Plan Est w/Pt/Caregvr, Swallow : Yes Treatment Duration, OPERATIONS EXPERT : One week Therapy at Next Level of Care, OPERATIONS EXPERT : Acute inpatient rehab TREE VIVEROS SLP - 01/10/2021 9:18 EDT Swallow LTG Grid OPERATIONS EXPERT Cardiovascular Operating Room Nurse Goal #1 OPERATIONS EXPERT Cardiovascular Operating Room Nurse Goal #2 Swallow LTG : Establish safe [...] TREE VIVEROS SLP - 01/10/2021 9:18 EDT OPERATIONS EXPERT Education Assessment Grid 1 Dysphagia, Effects of Impairment : Verbalizes understanding Ice Chips : Verbalizes understanding MBSS/VFSS/FEES Results : Verbalizes understanding Oral Care : Verbalizes understanding TREE VIVEROS SLP - 01/10/2021 9:18 EDT OPERATIONS EXPERT Education Assessment Grid 2 Treatment Plan : Verbalizes understanding TREE VIVEROS SLP - 01/10/2021 9:[address] [facility] OPERATIONS EXPERT Charges ST Selfcare/ Mgmt Ea 15 Min : 1 FEES : 1 TREE VIVEROS SLP - 01/10/2021 9:18 EDT Anticipated Discharge Needs, OPERATIONS EXPERT Anticipated Discharge to : Rehab, high intensity Recommend Continued Therapy at Discharge : Yes TREE VIVEROS SLP - 01/10/2021 9:18 EDT Electronically signed by Elmer, [facility] Conversion Furniture Inspector Cerner at 11/10/2022 9:13 AM CDT documented in this encounter Plan of Treatment Not on file documented as of this encounter Visit Diagnoses Not on filedocumented in this encounter Care Teams Metal Spraying Machine Operator Relationship Specialty Start Date End Date Robert Batista MD [address], [place] [address] PCP - General Family Medicine 07/04/25 documented as of this encounter
--- OUTSIDE RECORDS SUMMARY | 2025-07-11 04:26 | XMS_ITS | Encounter Summary ---
Author Organization [employer] ([place], [place], [place], [place], [place]) Address [address] [place] [address] Care Team Providers Care Balance Engineer Name Role Phone Robert Batista MD Primary Care Provider [phone] Encounter Details Date Type Department Care Team (Late st Contact Info) Description 01/04/2021 Transcribed Document [facility] Radiology [address] [place] [address] Abby Rodrigues MD [address] [place] [address] Social History Tobacco Use Types Packs/Day Years [...] Basic Information PCP: Robert Batista MD Primary History Card Clerk: Arthur Gomez MD Subjective Patient seen and [...] (JAN 03 14:00) Resp Rate 15 (JAN 04 06:00) L 11 (JAN 03 09:17) H 34 (JAN 03 15:00) SBP 125 (JAN 04 06:00) L 86 (JAN 04 01:00) H 205 (JAN 03:00) DBP 65 (JAN 04 06:00) L 51 (JAN 04:30) H 93 (JAN 03:00) MAP 90 (JAN 04 06:00) 65 (JAN 04:30) 133 (JAN 03 10:00) SpO2 95 (JAN [...] 24 Hours) Radiology Results (Last 48 hours) [id number] -- 12/27/2020 06:39 MRI Brain WO (01/02/2021 [...] dictation.Images reviewed, interpreted, and dictated by Dr. Chritsiano Gurrola.Transcribed by Mynor Moran(R).I have personally viewed, [...] and dictated by Dr. Manoj Juarez.Transcribed by ANAYA BaumCI have personally viewed, interpreted and dictated the [...] s/p pericardiocentesis and surgical repair of LV [place]. PEA Arrest; CODE called 10 minutes to [...] on filedocumented in this encounter Care Teams Balance Engineer Relationship Specialty Start Date End Date Robert Batista MD [address] [place] [phone] PCP - General Family Medicine 07/04/25 documented as of this encounter
--- OUTSIDE RECORDS SUMMARY | 2025-07-11 04:26 | XMS_ITS | Encounter Summary ---
Author Organization [employer] ([place], [place], [place], [place], [place]) Address [address] [place] [address] Care Team Providers Care Store Gift Wrap Associate Name Role Phone Robert Batista MD Primary Care Provider [phone] Encounter Details Date Type Department Care Team (Late st Contact Info) Description 12/31/2020 Transcribed Document [facility] [facility] Family Medicine [facility] [place] [address] ProviderMacrina MD [address] [place] [address] Social History Tobacco Use Types Packs/Day Years [...] No edema. Gastrointestinal: Soft. Integumentary: Warm, Dry, [place]. Review / Management Results review: DEC 31 [...] - Pre-Op Diagnosis, Medical. Electronically signed by [facility], [facility] Conversion Medical Claims Representative Cerner at 11/10/2022 9:26 AM CDT documented in this encounter Plan of Treatment Not on file documented as of this encounter Visit Diagnoses Not on filedocumented in this encounter Care Teams Store Gift Wrap Associate Relationship Specialty Start Date End Date Robert Batista MD [address] [place] [address] PCP - General Family Medicine 07/04/25 documented as of this encounter
--- OUTSIDE RECORDS SUMMARY | 2025-07-11 04:26 | XMS_ITS | Encounter Summary ---
Author Organization [employer] ([place], [place], [place], [place], [place]) Address [address] [place] [address] Care Team Providers Care History Instructor Name Role Phone Robert Awan MD Primary Care Provider [phone] Encounter Details Date Type Department Care Team (Late st Contact Info) Description 01/15/2021 Transcribed Document [facility] Family Medicine [facility] [place] [address] ProviderMacrina MD [address] [place] [id number] Social History Tobacco Use Types Packs/Day Years [...] MD-CAT) Provider Information Primary Care Physician - ROBERT AWAN MD Consulting Physician - RAMEHS, KAREN Booker MD-SEB Consulting Physician - KAYCEE-BRUCE OMORE MD-SEB Consulting Physician - NAZARIO, MD LIDIA-SEB Consulting Physician - NIMESH, MD PAT Consulting Physician - ALETA, AUDREY Gong MD Consulting Physician - KB, ANANDA Regan MD-ZURDO - 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, right sided weakness Consulting Physician - CRISTY, MD HARRISON Consulting Physician - NANCY, MD JEISON-SEB Consulting Physician - ROMEO, DANYELLE Bishop MD-CAR Consulting Physician - PEYTON BEATTY MD Referring Physician - EMPERATRIZ, ROBERT Alcaraz MD Problem List/Past Medical History Ongoing [...] EDT Slide Review No 01/15/2021 04:10 EDT Electronically signed by Elmer, [facility] Conversion Pearl Glue Drier Cerner at 11/10/2022 9:13 AM CDT documented in this encounter Plan of Treatment Not on file documented as of this encounter Visit Diagnoses Not on filedocumented in this encounter Care Teams History Instructor Relationship Specialty Start Date End Date Robert Awan MD [address] [place] [address] PCP - General Family Medicine 07/04/25 documented as of this encounter
--- OUTSIDE RECORDS SUMMARY | 2025-07-11 04:26 | XMS_ITS | Encounter Summary ---
Author Organization [employer] ([place], [place], [place], [place], [place]) Address [address] [place] [address] Care Team Providers Care Software Security Architect Name Role Phone Robert Batista MD Primary Care Provider [phone] Encounter Details Date Type Department Care Team (Late st Contact Info) Description 01/09/2021 Transcribed Document [facility] Family Medicine [facility] [place] [address] ProviderMacrina MD [address] [place] [address] Social History Tobacco Use Types Packs/Day Years [...] Initial Visit : No Referred by : Transformer Mechanic follow-up Referral Reason Comment : Critical care follow up visit Ministry Provided to : Patient Presybeterian Preference : Judaism BRISSA SULLIVAN - 01/09/2021 12:28 EDT Spiritual [...] Emotional Support : Empathic/Engaged listening Spiritual and Presybeterian : Prayer shared, Spiritual/Presybeterian support provided BRISSA SULLIVAN - 01/09/2021 12:28 EDT Electronically signed by [facility], [facility] Conversion Shoe Dyer Cerner at 11/10/2022 9:10 AM CDT documented in this encounter Plan of Treatment Not on file documented as of this encounter Visit Diagnoses Not on filedocumented in this encounter Care Teams Software Security Architect Relationship Specialty Start Date End Date Robert Batista MD [address] [place] [address] PCP - General Family Medicine 07/04/25 documented as of this encounter
--- OUTSIDE RECORDS SUMMARY | 2025-07-11 04:26 | XMS_ITS | Encounter Summary ---
Author Organization [employer] ([place], [place], [place], [place], [place]) Address [address] [place] [address] Care Team Providers Care Log Hooker Name Role Phone Robert Batista MD Primary Care Provider [phone] Encounter Details Date Type Department Care Team (Late st Contact Info) Description 01/09/2021 Transcribed Document [facility] [place] Family Medicine [facility] [place] [address] ProviderMacrina MD [address] [place] [address] Social History Tobacco Use Types Packs/Day Years [...] 1012. 01/02/21: POD#6 Intubated and sedated on [id number]/hr and Precedex .6mcg/kg/min. He is also on [...] on filedocumented in this encounter Care Teams Log Hooker Relationship Specialty Start Date End Date Robert Batista MD [address] [place], [place] [address] PCP - General Family Medicine 07/04/25 documented as of this encounter
--- OUTSIDE RECORDS SUMMARY | 2025-07-11 04:26 | XMS_ITS | Encounter Summary ---
Author Organization [employer] ([place], [place], [place], [place], [place]) Address [address] [place] [address] Care Team Providers Care Boiler Blower Name Role Phone Robert Batista MD Primary Care Provider [phone] Encounter Details Date Type Department Care Team (Late st Contact Info) Description 12/31/2020 Transcribed Document [facility] [place] Family Medicine [address] [place] [address] ProviderMacrina MD [address] [place] [address] Social History [...] Macrina ProviderMD - 12/31/2020 5:00 AM CDT Chart [...] on filedocumented in this encounter Care Teams Boiler Blower Relationship Specialty Start Date End Date Robert Batista MD [address] [place], [place] [address] PCP - General Family Medicine 07/04/25 documented as of this encounter
--- OUTSIDE RECORDS SUMMARY | 2025-07-11 04:26 | XMS_ITS | Encounter Summary ---
Author Organization [employer] ([place], [place], [place], [place], [place]) Address [address] [place] [address] Care Team Providers Care Worm Grower Name Role Phone Robert Batista MD Primary Care Provider [phone] Encounter Details Date Type Department Care Team (Late st Contact Info) Description 01/09/2021 Transcribed Document [facility] Cardiology [address] [place] [address] [place] [address] [place] [address] [address] [place] [address] Social History Tobacco Use Types Packs/Day Years Used Date Smoking Tobacco: Never Assessed Sex and Gender Information Value Date Recorded Sex Assigned at Not on file Legal Sex Male 1:13 PM CDT Gender Identity Not on file Sexual Orientation Not on file documented as of this encounter Miscellaneous Notes * Cerner Conversion Note - Arthur Gomez MD - 01/09/2021 8:05 AM EDT Patient: JOSE ADORNO Age: 80 years Sex: Male : 1940 Associated Diagnoses: None Author: ARTHUR GOMEZ MD-CAR Basic Information PCP: Robert Batista MD Primary Production Designer: Arthur Gomez MD Subjective Resting in bed, NAD. [...] H 105 (JAN 09 05:07) H 115 (DEC 15 20:17) Mon HR 106 (JAN 09 06:15) 93 (JAN 09 03:49) 119 (DEC 15 19:00) Resp Rate H 23 (JAN 09 06:15) 16 (JAN 09 03:49) H 44 (DEC 15 23:30) SBP 99 (JAN 09 06:15) L 68 (JAN 08 23:06) H 166 (DEC 15 10:00) DBP 63 (JAN 09 06:15) L 40 (JAN 08 23:36) 80 (DEC 16 02:00) MAP 76 (JAN 09 06:15) 49 (DEC 15 23:36) 113 (DEC 15 10:00) SpO2 98 (JAN 09 06:15) L 92 (JAN 08 18:00) 100 (JAN [...] 24 Hours) Radiology Results (Last 48 hours) [id number] -- 12/27/2020 06:39 CR Chest 1 Vw [...] s/p pericardiocentesis and surgical repair of LV [place]. PEA Arrest; CODE called 10 minutes to [...] on filedocumented in this encounter Care Teams Worm Grower Relationship Specialty Start Date End Date Robert Batista MD [address] [place] [address] PCP - General Family Medicine 07/04/25 documented as of this encounter
--- OUTSIDE RECORDS SUMMARY | 2025-07-11 04:26 | XMS_ITS | Encounter Summary ---
Author Organization [employer] ([place], [place], [place], [place], [place]) Address [address] [place] [address] Care Team Providers Care Local Announcer Name Role Phone Robert Batista MD Primary Care Provider [phone] Encounter Details Date Type Department Care Team (Late st Contact Info) Description 01/10/2021 Transcribed Document [facility] [place] Family Medicine [address] [place] [address] ProviderMacrina MD [address] [place] [address] Social History Tobacco Use Types Packs/Day Years Used Date Smoking Tobacco: Never Assessed Sex and Gender Information Value Date Recorded Sex Assigned at Not on file Legal Sex Male 1:13 PM CDT Gender Identity Not on file Sexual Orientation Not on file documented as of this encounter Miscellaneous Notes * Cerner Conversion Note - Macrina ProviderMD - 01/10/2021 12:31 PM CDT Admission [...] on filedocumented in this encounter Care Teams Local Announcer Relationship Specialty Start Date End Date Robert Batista MD [address] [place], [place] [address] PCP - General Family Medicine 07/04/25 documented as of this encounter
--- OUTSIDE RECORDS SUMMARY | 2025-07-11 04:26 | XMS_ITS | Encounter Summary ---
Author Organization [employer] ([place], [place], [place], [place], [place]) Address [address] [place] [address] Care Team Providers Care Petroleum Sampler Name Role Phone Robert Batista MD Primary Care Provider [phone] Encounter Details Date Type Department Care Team (Late st Contact Info) Description 01/03/2021 Transcribed Document [facility] [place] Family Medicine [facility] [address] ProviderMacrina MD [address] [place] [address] Social History Tobacco Use Types Packs/Day Years [...] 01/03/2021 12:52 PM CDT Patient: JOSE ADORNO [facility]: [id number] Age: 80 years Sex: Male : 1940 [...] and Precedex. 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 MRI brain yesterday revealed [...] Problems Aortic valve stenosis / SNOMED CT 138723595 / Confirmed Arthritis of right knee / SNOMED CT 5591027871 / Confirmed At risk for sleep apnea / IMO 65102243 / Confirmed Chronic anxiety / SNOMED CT 317166772 / Confirmed Back pain, chronic / SNOMED CT 640372304 / Confirmed Colorectal surgery / SNOMED CT 2409404797 / Confirmed Disorder of prostate / SNOMED CT 39886455 / Confirmed GERD - Gastro-esophageal reflux disease / SNOMED CT 7633711801 / Confirmed H/O peripheral neuropathy / SNOMED CT 776765121 / Confirmed feet tingle all the time HTN - Hypertension / SNOMED CT 4856694741 / Confirmed Hyperlipidemia / SNOMED CT 25322891 / Confirmed Hypertension / SNOMED CT 62511033 / Confirmed Aortic stenosis, severe / SNOMED CT 2926235758 / Confirmed Resolved: Cancer of colon / SNOMED CT 6126730082, Active Problems (13) Aortic stenosis, severe Aortic valve stenosis Arthritis of right knee At risk for sleep apnea Back pain, chronic Chronic anxiety Colorectal surgery Disorder of prostate GERD - Gastro-esophageal reflux disease H/O peripheral neuropathy HTN - Hypertension Hyperlipidemia Hypertension Physical Examination VS/Measurements Vitals Signs (last 24 hrs) Last Charted Minimum Maximum Mon HR 72 (JAN 03:) 57 (JAN 03 04:00) 75 (JAN 03 05:22) Resp Rate L 11 (JAN 03) L 8 (JAN 02 22:00) H 49 (JAN 02 14:00) SBP 132 (JAN 03 08:00) 94 (JAN 03 04:00) H 150 (JAN 03 05:00) DBP 71 (JAN 03 08:) L 52 (JAN 03 02:00) 73 (JAN 02 17:00) MAP 96 (JAN 03:) 68 (JAN 03 04:00) 104 (JAN 03 05:00) SpO2 99 (JAN 03) 96 (JAN 02 15:00) 100 (JAN 02 [...] (Last four charted values) WBC H 9.6 (CESAR 10) 9.0 (CESAR 09) [...] 143 (CESAR 09) 143 (CESAR 08) 142 (CEASR 07) K 3.7 (CESAR 10) 3.7 (CESAR [...] 08) 35 (CESAR 06) ALK P 73 (JAN 03) 65 (JAN 02) 71 (JAN 01) 64 (DEC 30) T Bili H 1.3 (JAN 03) H [...] 76.4 LOW 01/03/2021 07:48 HCO3 Art 29.0 [place] 01/03/2021 07:48 BE Art 4.7 [place] 01/03/2021 07:48 sO2 Art 95.8 01/03/2021 04:20 tHb Art 8.0 [facility] 01/03/2021 07:48 FHHb 4.1 NA 01/03/2021 04:20 ctO2 10.6 01/03/2021 04:20 FIO2 Art 40 01/03/2021 04:20 Delivery Device Type Art Ventilator 01/03/2021 04:20 Temperature, F Art 98.6 01/03/2021 04:20 Art Blood Gas (ABG) Site Right Radial 01/03/2021 04:20 Acceptable Grey's Test Art Acceptable NA 01/03/2021 04:20 Ventilator Mode Art AC NA 01/03/2021 04:20 Tidal Volume Set Art 440.0 01/03/2021 04:20 Set Rate Art 14.0 NA [...] 01/03/2021 04:20 Radiology Results (Last 48 hours) [id number] -- 12/27/2020 06:39 CR Chest 1 Vw [...] team, including critical care team, CCRN, RT., On Awake Counselor , case management and clinical pharmacist. I [...] Disposition intensive care unit Electronically signed by Elmer, [facility] Conversion Probation And Patrol Agent Cerner at 11/10/2022 9:29 AM CDT documented in this encounter Plan of Treatment Not on file documented as of this encounter Visit Diagnoses Not on filedocumented in this encounter Care Teams Petroleum Sampler Relationship Specialty Start Date End Date Robert Batista MD [address] [place] [address] PCP - General Family Medicine 07/04/25 documented as of this encounter
--- OUTSIDE RECORDS SUMMARY | 2025-07-11 04:27 | XMS_ITS | Encounter Summary ---
Author Organization [employer] ([place], [place], [place], [place], [place]) Address [address] [place] [address] Care Team Providers Care Coater Associate Name Role Phone Robert Batista MD Primary Care Provider [phone] Encounter Details Date Type Department Care Team (Late st Contact Info) Description 01/10/2021 Transcribed Document [facility] [place] Family Medicine [facility] [place] [address] ProviderMacrina MD [address] [place] [id number] Social History Tobacco Use Types Packs/Day Years Used Date Smoking Tobacco: Never Assessed Sex and Gender Information Value Date Recorded Sex Assigned at Not on file Legal Sex Male 1:13 PM CDT Gender Identity Not on file Sexual Orientation Not on file documented as of this encounter Miscellaneous Notes * Cerner Conversion Note - aMcrina Cordova MD - 01/10/2021 12:37 PM CDT [...] These findings were discussed with the surgeon. /[id number] Christoph Schuster MD KB/AQ / KB / MODL /[id number] documented in this encounter Plan of Treatment Not on file documented as of this encounter Visit Diagnoses Not on filedocumented in this encounter Care Teams Coater Associate Relationship Specialty Start Date End Date Robert Batista MD [address] [place], [place] [address] PCP - General Family Medicine 07/04/25 documented as of this encounter
--- OUTSIDE RECORDS SUMMARY | 2025-07-11 04:27 | XMS_ITS | Clinical Summary ---
Author Organization [facility] Address [address] [place] [address] Phone Care Team Providers Care Relay Dispatcher Name Role Phone Andre DAILY, Ben Unavailable [phone] PERICO AWAN MD Primary Care Provider [phone] Reason for Referral 04/07/2022 Encounter for Follow Up Date Recorded Target Due Date Referral Type Referring Prov ider Reason For Referral 04/07/2022 Ben Powell MD referr al to physician Last Documented On 2 10:25AM ; [facility] Reason for Visit and Chief Complaint The Chief Complaint is: lower back pain Problems Includes: Problems addressed during this encounter and other active Problems Current Visit Onset Date Date of Diagnosis Resolved Date Provider Condition Status Lower Back Pain 09/23/2021 09/23/2021 DOMINIQUE CADET PA-C Active Last Documented On 5 1:41AM ; [facility] Plan of Treatment Fall Risk Assessment: [...] - Last Documented On 04/08/2022 9:55AM ; [facility], [facility] Pending Tests Order Diagnosis Results Due Ordering P rovider Radiology - CT Scan Pelvis 02/27/22 Ben Powell MD Last Documented On 2 8:42AM ; [facility] Instructions to patient Lose weight Last Documented On 2 9:54AM ; [facility] Assessments Includes: Assessments from this encounter Findings 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 - Last Documented On 04/08/2022 9:55AM ; [facility] Pseudoarthrosis nonunion, left sacroiliac joint. - Last Documented On 04/08/2022 9:55AM ; [facility], [facility] Left inferior SI joint arthropathy. - Last Documented On 04/08/2022 9:55AM ; [facility] Instructions Includes: Instructions from this encounter Instructions to patient Lose weight Last Documented On 2 9:54AM ; [facility] Medical Equipment - Implanted Devices Includes: Current Devices No Medical Equipment Recorded Medications Includes: Medications discussed during this encounter and other current Medications Current Medications (continue as prescribed) Lidocaine 5% External Patch 10/30/2021 Provider: PERICO AWAN MD Diagnosis: Last Documented On 2 10:32AM By Aleida Haile ; [facility], [facility] Atorvastatin Calcium 40 MG Oral Tablet 10/16/2021 Pr ovider: PERICO AWAN MD Diagnosis: Last Documented On 2 10:32AM By Aleida Haile ; [facility], [facility] amLODIPine Besylate 5 MG Oral Tablet 09/27/2021 Prov ider: PERICO AWAN MD Diagnosis: Last Documented On 2 10:32AM By Aleida Haile ; [facility], [facility] Gabapentin 300 MG Oral Capsule 09/02/2021 Provider: BRUCE QUIJANO MD (N) Diagnosis: Last Documented On 2 2:24PM By Asiafranco Toscano ; [facility], [facility] Lisinopril 10 MG Oral Tablet 07/27/2021 Provider: PERICO AWAN MD Diagnosis: Last Documented On 2 2:24PM By Asia Toscano ; [facility], [facility] Medications Administered Includes: Administered Medications from this encounter No Administered Medications Recorded Vital Signs Includes: Vital Signs from this encounter Vital Name 04/07/2022 10:25A Blood Pressure Sitting R 148/82 Pulse Rate-Sitting (bpm) 64 Height (in) 68 Weight (lb) 136 Body Mass Index (kg/m2) 20.7 Body Surface Area (m2) 1.7 Note: sjs Last Documented: On 04/07/2022 10:47A M ; [facility] Results Includes: Results discussed during [...] 04/07/2022 Last Documented On 2 9:55AM ; [facility], [facility] Tobacco non-user 04/07/2022 Last Documented On 2 9:55AM ; [facility], [facility] No caffeine use 09/23/2021 Last Documented On 2 10:24AM ; [facility], [facility] No recent change in diet 09/23/2021 Last Documented On 2 10:24AM ; [facility], [facility] Not a current smoker. 09/23/2021 Last Documented On 2 10:24AM ; [facility], [facility] Not exercising regularly 09/23/2021 Last Documented On 2 10:24AM ; [facility], [facility] Not using alcohol 09/23/2021 Last Documented On 2 10:24AM ; [facility], [facility] Not using drugs 09/23/2021 Last Documented On 2 10:24AM ; [facility], [facility] Sex - Male 05/28/2022 Last Documented On 2 9:12PM ; [facility], [facility] Smoking Status Unknown Procedures and Surgical History Includes: Procedures from this encounter Procedures Code Diagnosis Performing Provider Service L ocation Service Date use of tobacco assessment performed 1000F Last Documented On 2 10:25AM ; [facility], [facility] patient screened for future fall risk 3288F Last Documented On 2 10:25AM ; [facility], [facility] patient screened for future fall risk: documentation of any fall with injury in past year 1100F Last Documented On 2 10:26AM ; [facility] follow-up visit in one month with PCP fo r elevated BP Last Documented On 2 10:25AM ; [facility] referral to physician Last Documented On 2 10:25AM ; [facility] an X-ray was performed 05/27 Humza SI Joint @ [facility] ~06/06/2021 Pelvis @ [facility] [id number] Last Documented On 2 10:25AM ; [facility] a CT scan was performed 07/27 LT Hip WO @ [facility] ~03/04/2022 Pelvis/L SI Block @ [facility] [id number] Last Documented On 2 10:26AM ; [facility] Surgical History Last Updated History of back surgery 09/23/2021 Last Documented On 2 10:24AM ; [facility] History of heart surgery 09/23/2021 Last Documented On 2 10:24AM ; [facility], [facility] Medical History Includes: Medical History addressed during this encounter Description Last Updated History of History of Heart Attack / Str ranjan 05/01/2022 Last Documented On 2 10:24AM ; [facility] Recent immunization for flu 04/26/2021 0 11/07/2021 Last Documented On 2 10:24AM ; [facility] Recent immunization for pneumococcal pne umonia 2019 11/07/2021 Last Documented On 2 10:24AM ; [facility] Family History Includes: Family History addressed during this encounter Description Last Updated No significant family history 09/23/2021 Last Documented On 2 10:24AM ; [facility], [facility] Review of Systems Includes: Review of Systems [...] Status from this encounter Description No anxiety Last Documented On 10:25AM ; [facility] Physical Exam Includes: Physical Exam from this encounter Allergies Includes: Active Allergies No Known Allergies Care Relay Dispatcher Name (Identifier) Role/Relation Location/Telecom Last Documented By Ben Powell MD ([id number]) Assigned practitioner (occupation) tel:[phone] Last Documented On 05/28/2022 9:12PM ; [facility] PERICO AWAN MD ([id number]) Primary care physician (occupation) [address] [place] [address], , [id number] tel:[phone] Last Documented On 05/28/2022 9:12PM ; [facility] Encounters Encounter Provider Location (Healthcare Service Location) Date Check-In Time Check-Out Time Diagnosis Encounter Disposition Follow Up [facility] 2021 10:28AM 11:10AM Payer Includes: Active Insurance Policies Plan Name (Payer ID) Coverage Type Member ID Group # Subscriber (ID) Relationship Effective Dates 1 - Medicare Part B [facility] ([id number]) [id number] Francesco Adorno Self Last Documented On 2 12:25PM ; [facility] 2 - [place] ([id number]) [id number] Francesco Adorno Self - Unknown Last Documented On 2 2:19PM ; [facility]
--- OUTSIDE RECORDS SUMMARY | 2025-07-11 04:27 | XMS_ITS | Encounter Summary ---
Author Organization [employer] ([place], [place], [place], [place], [place]) Address [address] [place] [address] Care Team Providers Care Ladle Pourer Name Role Phone Robert Batista MD Primary Care Provider [phone] Encounter Details Date Type Department Care Team (Late st Contact Info) Description 01/02/2021 Transcribed Document [facility] [place] [address] [place] [address] ProviderMacrina MD [address] [place] [address] Social History Tobacco Use Types Packs/Day Years Used Date Smoking Tobacco: Never Assessed Sex and Gender Information Value Date Recorded Sex Assigned at Not on file Legal Sex Male 1:13 PM CDT Gender Identity Not on file Sexual Orientation Not on file documented as of this encounter Miscellaneous Notes * Cerner Conversion Note - Macrina ProviderMD - 01/02/2021 1:37 PM CDT Attempt [...] on filedocumented in this encounter Care Teams Ladle Pourer Relationship Specialty Start Date End Date Robert Batista MD [address], [place] [address] PCP - General Family Medicine 07/04/25 documented as of this encounter
--- OUTSIDE RECORDS SUMMARY | 2025-07-11 04:27 | XMS_ITS | Encounter Summary ---
Author Organization [employer] ([place], [place], [place], [place], [place]) Address [address] [place] [address] Care Team Providers Care Manager Of Revenue Name Role Phone Robert Batista MD Primary Care Provider [phone] Encounter Details Date Type Department Care Team (Late st Contact Info) Description 01/17/[address] [facility] [place] Family Medicine [facility] [place] [address] ProviderMacrina MD [address] [place] [address] Social History Tobacco Use Types Packs/Day Years Used Date Smoking Tobacco: Never Assessed Sex and Gender Information Value Date Recorded Sex Assigned at Not on file Legal Sex Male 1:13 PM CDT Gender Identity Not on file Sexual Orientation Not on file documented as of this encounter Miscellaneous Notes * Cerner Conversion Note - Macrina ProviderMD - 01/17/2021 10:35 AM CDT Event Note Entered On: 01/17/2021 11:04 EDT Performed On: 01/17/2021 10:35 EDT by Mariana Walsh RN Event Note Event Date/Time : 01/17/2021 10:35 EDT Description of Event : Dr. Rodriguez at patient's bedside to explain procedure and sign surgical consent. Mariana Walsh RN - 01/17/2021 11:03 EDT documented in this encounter Plan of Treatment Not on file documented as of this encounter Visit Diagnoses Not on filedocumented in this encounter Care Teams Manager Of Revenue Relationship Specialty Start Date End Date Robert Batista MD [address] [place], [place] [address] PCP - General Family Medicine 07/04/25 documented as of this encounter
--- OUTSIDE RECORDS SUMMARY | 2025-07-11 04:27 | XMS_ITS | Encounter Summary ---
Author Organization [employer] ([place], [place], [place], [place], [place]) Address [address] [place] [address] Care Team Providers Care Farmworker Fryer Farm Name Role Phone Robert Batista MD Primary Care Provider [phone] Encounter Details Date Type Department Care Team (Late st Contact Info) Description 12/27/2020 Transcribed Document [facility] [address] [place] [address] ProviderMacrina MD [address] [place] [address] Social History Tobacco Use Types Packs/Day Years Used Date Smoking Tobacco: Never Assessed Sex and Gender Information Value Date Recorded Sex Assigned at Not on file Legal Sex Male 1:13 PM CDT Gender Identity Not on file Sexual Orientation Not on file documented as of this encounter Miscellaneous Notes * Cerner Conversion Note - Macrina Cordova MD - 12/27/2020 6:33 PM CDT Pain Assessment Entered On: 01/18/2021 4:04 EDT Performed On: 01/17/2021 23:08 EDT by Manoj Thomason RN-Resource Intervention Information: acetaminophen-HYDROcodone Performed by Manoj Thomason RN-Resource on 01/17/2021 22:08:00 EDT acetaminophen-HYDROcodone,2Tab Oral,Pain (Moderate 4-6) Pain Assessment Pain Assessment : Follow-up assessment Pain Scale Goal : 3 Pain Improved by Intervention : Yes Manoj Thomason RN-Resource - 01/18/2021 4:04 EDT Electronically signed by Elmer joel Conversion Cutting Machine Tender Decorative Cerner at 11/14/2022 8:23 AM CDT documented in this encounter Plan of Treatment Not on file documented as of this encounter Visit Diagnoses Not on filedocumented in this encounter Care Teams Farmworker [employer]er Farm Relationship Specialty Start Date End Date Robert Batitsa MD [address] [place] [id number] PCP - General Family Medicine 07/04/25 documented as of this encounter
--- OUTSIDE RECORDS SUMMARY | 2025-07-11 04:27 | XMS_ITS | Encounter Summary ---
Author Organization [employer] ([place], [place], [place], [place], [place]) Address [address] [place] [address] Care Team Providers Care Professor Of Marketing Name Role Phone Robert Batista MD Primary Care Provider [phone] Encounter Details Date Type Department Care Team (Late st Contact Info) Description 01/17/2021 Transcribed Document [facility] [place] [address] [place] [address] ProviderMacrina MD [address] [place], [place] [id number] Social History Tobacco Use Types Packs/Day Years Used Date Smoking Tobacco: Never Assessed Sex and Gender Information Value Date Recorded Sex Assigned at Not on file Legal Sex Male 1:13 PM CDT Gender Identity Not on file Sexual Orientation Not on file documented as of this encounter Miscellaneous Notes * Cerner Conversion Note - Macrina ProviderMD - 01/17/2021 8:36 AM CDT Spiritual Care Short Form Entered On: 01/17/2021 9:24 EDT Performed On: 01/17/2021 8:36 EDT by BRISSA SULLIVAN General Information, Spiritual Care Spiritual Care Referred by : Weigh Machine Operator initiated Reason for Visit : Follow Up Ministry Provided to : Patient Intervention/Comment/Summary Points : Provided pre-surgery visit and prayer. Hinduism Preference : Mosque BRISSA SULLIVAN - 01/17/2021 9:23 EDT documented in this encounter Plan of Treatment Not on file documented as of this encounter Visit Diagnoses Not on filedocumented in this encounter Care Teams Professor Of Marketing Relationship Specialty Start Date End Date Robert Batista MD [address] [place] [address] PCP - General Family Medicine 07/04/25 documented as of this encounter
--- OUTSIDE RECORDS SUMMARY | 2025-07-11 04:27 | XMS_ITS | Clinical Summary ---
Author Organization [facility] Address [address] [facility] [place] [address] Phone Care Team Providers Care Agricultural Produce Packer Name Role Phone Andre DAILY, Ben Unavailable [phone] PERICO AWAN MD Primary Care Provider [phone] Reason for Referral 02/13/2022 Encounter for Follow Up Date Recorded Target Due Date Referral Type Referring Prov ider Reason For Referral 02/13/2022 Ben Powell MD referr al to physician Last Documented On 2 9:46AM ; [facility] 02/13/2022 Ben Powell MD referr al to physician Last Documented On 2 9:49AM ; [facility] Reason for Visit and Chief Complaint The Chief Complaint is: lower back pain Problems Includes: Problems addressed during this encounter and other active Problems Current Visit Onset Date Date of Diagnosis Resolved Date Provider Condition Status Lower Back Pain 09/23/2021 09/23/2021 DOMINIQUE CADET PA-C Active Last Documented On 5 1:41AM ; [facility] Plan of Treatment Fall Risk [...] - Last Documented On 02/14/2022 8:42AM ; [facility] Fall Risk Assessment: This patient [...] - Last Documented On 02/14/2022 8:42AM ; [facility] Pending Tests Order Diagnosis Results Due Ordering P Bloodhound Radiology - CT Scan Pelvis 02/27/22 Ben Powell MD Last Documented On 8:42AM ; [facility] Instructions to patient No intervention and counseli ng on cessation of tobacco use Last Documented On 8:42AM ; [facility] Lose weight Last Documented On 8:42AM ; [facility] Assessments Includes: Assessments from this encounter Findings 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 - Last Documented On 02/14/2022 8:42AM ; [facility] Pseudoarthrosis nonunion, left sacroiliac joint. - Last Documented On 02/14/2022 8:42AM ; [facility] Left inferior SI joint arthropathy. - Last Documented On 02/14/2022 8:42AM ; [facility] Instructions Includes: Instructions from this encounter Instructions to patient No intervention and counseli ng on cessation of tobacco use Last Documented On 2 8:42AM ; [facility] Lose weight Last Documented On 8:42AM ; [facility] Medical Equipment - Implanted Devices Includes: Current Devices No Medical Equipment Recorded Medications Includes: Medications discussed during this encounter and other current Medications Current Medications (continue as prescribed) Lidocaine 5% External Patch 10/30/2021 Provider: PERICO AWAN MD Diagnosis: Last Documented On 2 10:32AM By Aleida Haile ; [facility] Atorvastatin Calcium 40 MG Oral Tablet 10/16/2021 Pr ovider: PERICO AWAN MD Diagnosis: Last Documented On 2 10:32AM By Aleida Haile ; [facility] amLODIPine Besylate 5 MG Oral Tablet 09/27/2021 Prov ider: PERICO AWAN MD Diagnosis: Last Documented On 2 10:32AM By Aleida Haile ; [facility] Gabapentin 300 MG Oral Capsule 09/02/2021 Provider: BRUCE QUIJANO MD (N) Diagnosis: Last Documented On 2 2:24PM By Asia Toscano ; [facility] Lisinopril 10 MG Oral Tablet 07/27/2021 Provider: PERIOC AWAN MD Diagnosis: Last Documented On 2 2:24PM By Asia Toscano ; [facility] Medications Administered Includes: Administered Medications from this encounter No Administered Medications Recorded Vital Signs Includes: Vital Signs from this encounter Vital Name 02/13/2022 09:48A Blood Pressure Sitting (mmHg) 159/136 Height (in) 68 Weight (lb) 136 Body Mass Index (kg/m2) 20.7 Body Surface Area (m2) 1.7 Note: dp Last Documented: On 02/13/2022 9:57AM ; [facility] Results Includes: Results discussed during [...] Last Documented On 2 8:42AM ; [facility] Non-smoker 09/23/2021 Last Documented On 2 9:46AM ; [facility] No caffeine use 09/23/2021 Last Documented On 2 9:46AM ; [facility] No recent change in diet 09/23/2021 Last Documented On 2 9:46AM ; [facility] Not a current smoker. 09/23/2021 Last Documented On 2 9:46AM ; [facility] Not exercising regularly 09/23/2021 Last Documented On 2 9:46AM ; [facility] Not using alcohol 09/23/2021 Last Documented On 2 9:46AM ; [facility] Not using drugs 09/23/2021 Last Documented On 2 9:46AM ; [facility] Sex - Male 05/28/2022 Last Documented On 2 9:12PM ; [facility] Smoking Status Unknown Procedures and Surgical History Includes: Procedures from this encounter Procedures Code Diagnosis Performing Provider Service L ocation Service Date no intervention and counseling on cessation of tobacco use 4000F Last Documented On 2 8:42AM ; [facility] use of tobacco assessment performed 1000F Last Documented On 2 9:46AM ; [facility] patient screened for future fall risk 3288F Last Documented On 2 9:49AM ; [facility] follow-up visit in one month with PCP fo r elevated BP Last Documented On 2 9:49AM ; [facility] referral to physician Last Documented On 2 9:46AM ; [facility] referral to physician Last Documented On 2 9:49AM ; [facility] an X-ray was performed 06/06/2021 Humza SI Joint @ [facility] ~06/06/2021 Pelvis @ [facility] [id number] Last Documented On 2 9:46AM ; [facility] a CT scan was performed 08/14/2021 [place] [id number] Last Documented On 2 9:46AM ; [facility] Surgical History Last Updated History of back surgery 09/23/2021 Last Documented On 2 9:46AM ; [facility] History of heart surgery 09/23/2021 Last Documented On 2 9:46AM ; [facility] Medical History Includes: Medical History addressed during this encounter Description Last Updated History of History of Heart Attack / Str ranjan 05/01/2022 Last Documented On 2 9:46AM ; [facility] Recent immunization for flu 04/26/2021 0 11/07/2021 Last Documented On 2 9:46AM ; [facility] Recent immunization for pneumococcal pne umonia 2019 11/07/2021 Last Documented On 2 9:46AM ; [facility] Family History Includes: Family History addressed during this encounter Description Last Updated No significant family history 09/23/2021 Last Documented On 2 9:46AM ; [facility] Review of Systems Includes: Review [...] encounter Description No anxiety Last Documented On 2 9:46AM ; [facility] Physical Exam Includes: Physical Exam from this encounter Immunizations Includes: Immunizations addressed during this encounter Vaccine Dose # Date Site Reaction(s) Status Source PCV (Pneumovax 23) 2 02/13/2022 Complete (Refused - Patient objection) [facility] Last Documented On 2 9:46AM ; [facility] Td 1 02/13/2022 Complete (Refused - Patient objection) [facility] Last Documented On 2 9:46AM ; [facility] Allergies Includes: Active Allergies No Known Allergies Care Agricultural Produce Packer Name (Identifier) Role/Relation Location/Telecom Last Documented By Ben Powell MD ([id number]) Assigned practitioner (occupation) tel:[phone] Last Documented On 05/28/2022 9:12PM ; [facility] PERICO AWAN MD ([id number]) Primary care physician (occupation) [address] [place] [address], , [phone] tel:[phone] Last Documented On 05/28/2022 9:12PM ; [facility] Encounters Encounter Provider Location (Healthcare Service Location) Date Check-In Time Check-Out Time Diagnosis Encounter Disposition Follow Up Ben Powell [facility] 9:50AM 10:36AM Payer Includes: Active Insurance Policies Plan Name (Payer ID) Coverage Type Member ID Group # Subscriber (ID) Relationship Effective Dates 1 - Medicare Part B [facility] ([id number]) [id number] Francesco Adorno Self Last Documented On 2 12:25PM ; [facility] 2 - [employer] [place] [id number]) [id number] Francesco Adorno Self - Unknown Last Documented On 2 2:19PM ; [facility]
--- OUTSIDE RECORDS SUMMARY | 2025-07-11 04:27 | XMS_ITS | Encounter Summary ---
Author Organization [employer] ([place], [place], [place], [place], [place]) Address [address] [place] [address] Care Team Providers Care College Administrator Name Role Phone Robert Batista MD Primary Care Provider [phone] Encounter Details Date Type Department Care Team (Late st Contact Info) Description 01/06/2021 Transcribed Document [facility] Cardiology [address] [place] [phone] [place] [address] [place] [address] [address] [place] [address] Social History Tobacco Use Types Packs/Day Years Used Date Smoking Tobacco: Never Assessed Sex and Gender Information Value Date Recorded Sex Assigned at Not on file Legal Sex Male 1:13 PM CDT Gender Identity Not on file Sexual Orientation Not on file documented as of this encounter Miscellaneous Notes * Cerner Conversion Note - Arthur Gomez MD - 01/06/2021 11:19 AM EDT Patient: JOSE ADORNO Age: 80 years Sex: Male : 1940 Associated Diagnoses: None Author: ARTHUR GOMEZ MD-CAR Basic Information PCP: Robert Batista MD Primary Senior Vice President And Chief Information Officer: Arthur Gomez MD Subjective Patient feeling better today. [...] Medical Aortic valve stenosis / SNOMED CT 684785455 / Confirmed At risk for sleep apnea / IMO 39918195 / Confirmed Colorectal surgery / SNOMED CT 7000067362 / Confirmed HTN - Hypertension / SNOMED CT 2212491417 / Confirmed, Active Problems (13) Aortic stenosis, [...] (Current Encounter/Past 24 Hours) ProBNP 3753 pg/mL MI 01/06/2021 05:22 Radiology Results (Last 48 hours) [id number] -- 12/27/2020 06:39 CT Chest WO (01/04/2021 [...] dependent pleural effusions. Small on theleft and cktsy-ci-hoahfeuw on the right side. These are associated [...] CT-GUIDED THORACENTESISHISTORY: Pleural effusion.ATTENDING PHYSICIAN: Dr. Youssef DEV OPS ENGINEER: LUCÍA Cantor-CTECHNIQUE: Informed consent was obtained from [...] s/p pericardiocentesis and surgical repair of LV [place]. PEA Arrest; CODE called 10 minutes to [...] on filedocumented in this encounter Care Teams College Administrator Relationship Specialty Start Date End Date Robert Batista MD [address] [place] [phone] PCP - General Family Medicine 07/04/25 documented as of this encounter
--- OUTSIDE RECORDS SUMMARY | 2025-07-11 04:27 | XMS_ITS | Encounter Summary ---
Author Organization [employer] ([place], [place], [place], [place], [place]) Address [address] [place] [address] Care Team Providers Care Concrete Mixer Loader Truck Mounted Name Role Phone Robert Batista MD Primary Care Provider [phone] Encounter Details Date Type Department Care Team (Late st Contact Info) Description 01/01/2021 Transcribed Document [facility] [place] [address] [place] [address] ProviderMacrina MD [address] [place] [address] Social History Tobacco Use Types Packs/Day Years Used Date Smoking Tobacco: Never Assessed Sex and Gender Information Value Date Recorded Sex Assigned at Not on file Legal Sex Male 1:13 PM CDT Gender Identity Not on file Sexual Orientation Not on file documented as of this encounter Miscellaneous Notes * Cerner Conversion Note - Macrina ProviderMD - 01/01/2021 5:00 AM CDT Chart [...] on filedocumented in this encounter Care Teams Concrete Mixer Loader Truck Mounted Relationship Specialty Start Date End Date Robert Batista MD [address] [place], [place] [phone] PCP - General Family Medicine 07/04/25 documented as of this encounter
--- OUTSIDE RECORDS SUMMARY | 2025-07-11 04:27 | XMS_ITS | Encounter Summary ---
Author Organization [employer] ([place], [place], [place], [place], [place]) Address [address] [place] [address] Care Team Providers Care Decorative Cutting Machine Tender Name Role Phone Robert Batista MD Primary Care Provider [phone] Encounter Details Date Type Department Care Team (Late st Contact Info) Description 12/28/2020 Transcribed Document [facility] [place] [address] [place] [address] ProviderMacrina MD [address] [place], [place] [phone] Social History Tobacco Use Types Packs/Day Years Used Date Smoking Tobacco: Never Assessed Sex and Gender Information Value Date Recorded Sex Assigned at Not on file Legal Sex Male 1:13 PM CDT Gender Identity Not on file Sexual Orientation Not on file documented as of this encounter Miscellaneous Notes * Cerner Conversion Note - Macrina Cordova MD - 12/28/2020 12:28 PM CDT Initial Discharge Planning Entered On: 12/28/2020 12:41 EDT Performed On: 12/28/2020 12:28 EDT by SOPHY RM Rn-Social Media Manager Initial Assessment I Previously Documented Living Environment : No qualifying data available. Living Situation : Home Patient Lives With : Spouse Is the Patient a Caregiver at Home? : No Emergency Contact #1 : michaela Charu Adorno Emergency Contact #1 Emergency Contact #1 Relationship : Emergency Contact #2 : Michaela -home phone Emergency Contact #2 Emergency Contact #2 Relationship : Enter Doctors Name : Dr. Robert Batista Does Patient have PCP Listed? : Yes Medical Durable Power of Plaster Helper Name : None Legal Guardian : No Is Guardianship Needed : No SOPHY RM Rn-Social Media Manager - 12/28/2020 12:28 EDT Initial Assessment II Sensory and Motor Deficits : None Current Home Treatments and Equipment : Blood pressure monitor SOPHY RM Rn-Social Media Manager - 12/28/2020 12:28 EDT Discharge Needs I Anticipated Discharge Date : 01/03/2021 EDT Anticipated Discharge To, CM : Home with family care, Home with home health, [facility] facility Current Home Treatment/Equipment : Current Home Treatment/Equipment No qualifying data available. Post Acute/Home Treatments : Blood pressure monitor Documentation Status Complete : Yes SOPHY RM Rn-Social Media Manager - 12/28/2020 12:28 EDT Discharge Needs II Professional Skilled Services : Professional Skilled Services No qualifying data available. Services and Community Resources : Outpatient Cardiac Rehab Needs Assistance with Transportation : No Discharge Options Discussed with Patient : DME, Home Health, Outpatient services, Short term rehabilitation SOPHY RM Rn-Social Media Manager - 12/28/2020 12:28 EDT Narrative Note Narrative [...] home health or short-term rehab. SOPHY RM Rn-Social Media Manager - 12/28/2020 12:28 EDT Electronically signed by Olinda Payne Conversion C2 Tactical Analysis Technician Cerner at 11/10/2022 9:18 AM CDT documented in this encounter Plan of Treatment Not on file documented as of this encounter Visit Diagnoses Not on filedocumented in this encounter Care Teams Decorative Cutting Machine Tender Relationship Specialty Start Date End Date Robert Batista MD [address] [place] [phone] PCP - General Family Medicine 07/04/25 documented as of this encounter
--- OUTSIDE RECORDS SUMMARY | 2025-07-11 04:27 | XMS_ITS | Encounter Summary ---
Author Organization [employer] ([place], [place], [place], [place], [place]) Address [address] [place] [address] Care Team Providers Care Freight Sales Broker Name Role Phone Robert Batista MD Primary Care Provider [phone] Encounter Details Date Type Department Care Team (Late st Contact Info) Description 01/09/2021 Transcribed Document [facility] [place] [facility] [place] [address] ProviderMacrina MD [address] [place] [id number] Social History Tobacco Use Types Packs/Day Years [...] 0.5 MCG/KG/. 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 MRI brain yesterday revealed [...] 180s. 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 but weaker [...] Problems Aortic valve stenosis / SNOMED CT 291099820 / Confirmed Arthritis of right knee / SNOMED CT 5709949383 / Confirmed At risk for sleep apnea / IMO 05826952 / Confirmed At risk for violence / IMO 74740655 / Confirmed Chronic anxiety / SNOMED CT 617907044 / Confirmed Back pain, chronic / SNOMED CT 627719681 / Confirmed Colorectal surgery / SNOMED CT 4107923259 / Confirmed Disorder of prostate / SNOMED CT 74655932 / Confirmed GERD - Gastro-esophageal reflux disease / SNOMED CT 3751817256 / Confirmed H/O peripheral neuropathy / SNOMED CT 603963127 / Confirmed feet tingle all the time HTN - Hypertension / SNOMED CT 0806646713 / Confirmed Hyperlipidemia / SNOMED CT 11487994 / Confirmed Hypertension / SNOMED CT 53225039 / Confirmed Aortic stenosis, severe / SNOMED CT 8654653004 / Confirmed Resolved: Cancer of colon / SNOMED CT 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, Active Problems (14) Aortic stenosis, severe Aortic [...] 115 (JAN 08 20:17) Mon HR 113 (CESAR 16 14:00) 93 (DEC 16 03:49) 119 (DEC 15 19:00) Resp Rate H 29 (JAN 09 14:00) 16 (DEC 16 03:49) H 44 (DEC 15 23:30) SBP 124 (DEC 16 14:00) L 68 (DEC 15 23:06) H 154 (DEC 16 02:00) DBP 70 (DEC 16 14:00) L 40 (DEC 15 23:36) 80 (DEC 16 02:00) MAP 92 (JAN 09 14:00) 49 (DEC 15 23:36) 109 (DEC 16 02:00) SpO2 97 (JAN 09 14:00) L 92 (DEC 15 18:00) 100 (DEC 16 00:20) Intake & Output Totals Last 24 [...] WBC H 14.4 (DEC 16) H 16.3 (DEC 15) H 15.3 (DEC 14) H 15.8 (DEC 13) HB L 8.9 (DEC 16) L 10.0 (CESAR 15) L 9.4 (CESAR 14) L 9.2 (CESAR 13) HCT L 28.0 (DEC 16) L 30.7 (CESAR 15) L 29.7 [...] ALB L 2.4 (CESAR 16) L 2.7 (JAN 08) L 2.4 (JAN 07) L 2.5 (JAN 06) Troponin <0.015 (DEC 25) . Blood Gases [...] 24 Hours) Radiology Results (Last 48 hours) [id number] -- 12/27/2020 06:39 CR Chest 1 Vw [...] with SHYAM ZAVALA. Electronically signed by Elmer [facility] Conversion Quarter Section Ironer Cerner at 11/10/2022 9:17 AM CDT documented in this encounter Plan of Treatment Not on file documented as of this encounter Visit Diagnoses Not on filedocumented in this encounter Care Teams Freight Sales Broker Relationship Specialty Start Date End Date Robert Batista MD [address] [place] [phone] PCP - General Family Medicine 07/04/25 documented as of this encounter
--- OUTSIDE RECORDS SUMMARY | 2025-07-11 04:27 | XMS_ITS | Encounter Summary ---
Author Organization [employer] ([place], [place], [place], [place], [place]) Address [address] [place] [address] Care Team Providers Care Deputy Chief Magistrate Name Role Phone Robert Batista MD Primary Care Provider [phone] Encounter Details Date Type Department Care Team (Late st Contact Info) Description 01/06/2021 Transcribed Document [facility] [place] [facility] [place] [address] ProviderMacrina MD [address] [place], [place] [phone] Social History Tobacco Use Types Packs/Day Years Used Date Smoking Tobacco: Never Assessed Sex and Gender Information Value Date Recorded Sex Assigned at Not on file Legal Sex Male 1:13 PM CDT Gender Identity Not on file Sexual Orientation Not on file documented as of this encounter Miscellaneous Notes * Cerner Conversion Note - Macrina ProviderMD - 01/06/2021 1:30 AM CDT Spiritual [...] 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 Building Maintenance Technician held pt's hand and provided patoral presence and prayer. Presybeterian Preference : Uatsdin Carroll Dudley Chaplain-Non Cert - 01/06/2021 7:34 EDT Electronically signed by Elmer, [facility] Conversion Roll Hauler Cerner at 11/10/2022 9:06 AM CDT documented in this encounter Plan of Treatment Not on file documented as of this encounter Visit Diagnoses Not on filedocumented in this encounter Care Teams Deputy Chief Magistrate Relationship Specialty Start Date End Date Robert Batista MD [address] [place] [address] [place] [phone] PCP - General Family Medicine 07/04/25 documented as of this encounter
--- OUTSIDE RECORDS SUMMARY | 2025-07-11 04:27 | XMS_ITS | Encounter Summary ---
Author Organization [employer] ([place], [place], [place], [place], [place]) Address [address] [place] [address] Care Team Providers Care Sporting Goods Salesperson Name Role Phone Robert Batista MD Primary Care Provider [phone] Encounter Details Date Type Department Care Team (Late st Contact Info) Description 01/02/2021 Transcribed Document [facility] [place] [facility] [address] ProviderMacrina MD [address] [place], [place] [phone] Social History Tobacco Use Types Packs/Day Years Used Date Smoking Tobacco: Never Assessed Sex and Gender Information Value Date Recorded Sex Assigned at Not on file Legal Sex Male 1:13 PM CDT Gender Identity Not on file Sexual Orientation Not on file documented as of this encounter Miscellaneous Notes * Cerner Conversion Note - Macrina ProviderMD - 01/02/2021 10:13 AM CDT Therapy [...] on filedocumented in this encounter Care Teams Sporting Goods Salesperson Relationship Specialty Start Date End Date Robert Batista MD [address] [place], [place] [phone] PCP - General Family Medicine 07/04/25 documented as of this encounter
--- OUTSIDE RECORDS SUMMARY | 2025-07-11 04:27 | XMS_ITS | Encounter Summary ---
Author Organization [employer] ([place], [place], [place], [place], [place]) Address [address] [place] [address] Care Team Providers Care Chain Person Name Role Phone Robert Batista MD Primary Care Provider [phone] Encounter Details Date Type Department Care Team (Late st Contact Info) Description 01/05/2021 Transcribed Document [facility] Pulm & Critical Care Medicine [address] [place] [address] [address] [phone] [place] [address] [place] [address] [address] [place] [address] Social History Tobacco Use Types Packs/Day Years [...] 0.5 MCG/KG/. Awake and following commands, positive dog bather in bilateral hands. MRI brain yesterday revealed [...] Medical Aortic valve stenosis / SNOMED CT 414881217 / Confirmed At risk for sleep apnea / IMO 67693902 / Confirmed Colorectal surgery / SNOMED CT 9500323745 / Confirmed HTN - Hypertension / SNOMED CT 9395319672 / Confirmed, Active Problems (13) Aortic stenosis, [...] 23:00) 60 (JAN 04 03:00) 82 (JAN 04 20:00) Resp Rate H 33 (JAN 04 23:00) L 13 (JAN 04 05:03) H 33 (JAN 04 23:00) SBP 110 (JAN 04 23:00) L 86 (JAN 04 01:00) H 169 (JAN 04 20:00) DBP L 58 (JAN 04 23:00) L 51 (JAN 04 01:30) 80 (JAN 04 20:00) MAP 79 (JAN 04 23:00) 65 (JAN 04:30) 114 (JAN 04 20:00) SpO2 98 (JAN 04 23:00) 95 (JAN 04 06:00) 100 (JAN 04 [...] 09) 80 (CESAR 08) Ca L 8.1 (CESRA 11) L 7.7 (CESAR 10) L 7.8 (CESAR 09) L 8.3 (CESAR 08) Lactic 1.2 (CESAR 07) 1.4 (CESAR 06) 1.4 (CESAR 06) 1.7 (DEC 06) PT 11.4 (DEC 04) H 17.4 (CESAR 03) H 14.3 (CESAR 03) H 18.7 (CESAR 03) INR 1.1 (CESAR 04) H 1.7 (CESAR 03) H 1.4 (CESAR 03) H 1.8 (DEC 03) PTT 27.8 (DEC 05) H 62.4 (CESAR 03) H 37.3 (CESAR 03) H 55.9 (CESAR 03) AST 32 (CESAR 11) H 39 (CESAR 10) 32 (CESAR 09) H 50 (DEC 08) ALT 35 (CESAR 11) 33 (CESAR 10) 28 (CESAR 09) 33 (CESAR 08) ALK P 63 (CESAR 11) 73 (CESAR 10) 65 (CESAR 09) 71 (DEC 08) T Bili H 1.5 (DEC 11) H 1.3 (CESAR 10) H 1.7 (DEC 09) H 2.3 (DEC 08) PTN L 5.2 (DEC 11) L 5.3 (DEC 10) L 5.1 (DEC 09) L 5.8 (DEC 08) ALB L 2.3 (CESAR 11) L 2.1 (CESAR 10) L 2.0 (CESAR 09) L 2.5 (CESAR 08) Troponin <0.015 (DEC 25) . Blood [...] 01/04/2021 05:03 Radiology Results (Last 48 hours) [id number] -- 12/27/2020 06:39 CR Chest 1 Vw [...] dependent pleural effusions. Small on theleft and dolrw-cd-esxlzkek on the right side. These are associated [...] team, including critical care team, CCRN, RT., Woolen Tester , case management and clinical pharmacist. I [...] on filedocumented in this encounter Care Teams Chain Person Relationship Specialty Start Date End Date Robert Batista MD [address] [place], [place] [phone] PCP - General Family Medicine 07/04/25 documented as of this encounter
--- OUTSIDE RECORDS SUMMARY | 2025-07-11 04:27 | XMS_ITS | Encounter Summary ---
Author Organization [employer] ([place], [place], [place], [place], [place]) Address [address] [place] [address] Care Team Providers Care Agricultural Equipment Mechanic Name Role Phone Robert Batista MD Primary Care Provider [phone] Encounter Details Date Type Department Care Team (Late st Contact Info) Description 12/27/2020 Transcribed Document [facility] [place] [facility] [place] [address] ProviderMacrina MD [address] [place] [address] Social History Tobacco Use Types Packs/Day Years Used Date Smoking Tobacco: Never Assessed Sex and Gender Information Value Date Recorded Sex Assigned at Not on file Legal Sex Male 1:13 PM CDT Gender Identity Not on file Sexual Orientation Not on file documented as of this encounter Miscellaneous Notes * Cerner Conversion Note - Macrina ProviderMD - 12/27/2020 2:00 PM CDT Sepsis Screening Tool Entered On: 12/27/2020 22:19 EDT Performed On: 12/27/2020 14:00 EDT by Manny Spencer, RN Provider Notification Provider Notified of Concerns/Results : Critical value result Manny Spencer RN - 12/27/2020 22:18 EDT documented in this encounter Plan of Treatment Not on file documented as of this encounter Visit Diagnoses Not on filedocumented in this encounter Care Teams Agricultural Equipment Mechanic Relationship Specialty Start Date End Date Robert Batista MD [place] [place], [place] [phone] PCP - General Family Medicine 07/04/25 documented as of this encounter
--- OUTSIDE RECORDS SUMMARY | 2025-07-11 04:27 | XMS_ITS | Encounter Summary ---
Author Organization [employer] ([place], [place], [place], [place], [place]) Address [address] [place] [address] Care Team Providers Care Upper Tier Name Role Phone Robert Batista MD Primary Care Provider [phone] Encounter Details Date Type Department Care Team (Late st Contact Info) Description 01/05/2021 Transcribed Document [facility] [place] [facility] [place] [address] ProviderMacrina MD [address] [place], [place] [address] Social History Tobacco Use Types Packs/Day Years Used Date Smoking Tobacco: Never Assessed Sex and Gender Information Value Date Recorded Sex Assigned at Not on file Legal Sex Male 1:13 PM CDT Gender Identity Not on file Sexual Orientation Not on file documented as of this encounter Miscellaneous Notes * Cerner Conversion Note - Macrina Cordova MD - 01/05/2021 12:24 PM CDT Patient: JOSE [...] IV Push, Q4H, PRN Electronically signed by Elmer [facility] Conversion Transportation Engineer Cerner at 11/10/2022 9:20 AM CDT documented in this encounter Plan of Treatment Not on file documented as of this encounter Visit Diagnoses Not on filedocumented in this encounter Care Teams Upper Tier Relationship Specialty Start Date End Date Robert Batista MD [address], [place] [phone] PCP - General Family Medicine 07/04/25 documented as of this encounter
--- OUTSIDE RECORDS SUMMARY | 2025-07-11 04:27 | XMS_ITS | Encounter Summary ---
Author Organization [employer] ([place], [place], [place], [place], [place]) Address [address] [place] [address] Care Team Providers Care Road Worker Name Role Phone Robert Batista MD Primary Care Provider [phone] Encounter Details Date Type Department Care Team (Late st Contact Info) Description 12/28/2020 Transcribed Document [facility] [place] [facility] [place] [address] ProviderMacrina MD [address] [place], [place] [id number] Social History Tobacco Use Types Packs/Day Years Used Date Smoking Tobacco: Never Assessed Sex and Gender Information Value Date Recorded Sex Assigned at Not on file Legal Sex Male 1:13 PM CDT Gender Identity Not on file Sexual Orientation Not on file documented as of this encounter Miscellaneous Notes * Cerner Conversion Note - Macrina Cordova MD - 12/28/2020 12:41 PM CDT On Going Discharge Planning Entered On: 12/28/2020 12:42 EDT Performed On: 12/28/2020 12:41 EDT by SOPHY RM Rn-Instructor HairspringElectronic Service Technician Progress Note Discharge Arrangements : Patient [...] : Clinical Condition of Patient SOPHY RM, Rn-Instructor [employer]spring - 12/28/2020 12:41 EDT Narrative Progress Note Narrative Progress Note : DCP TBD - pending progress; [facility] SOPHY RM Rn-Instructor Hairspring - 12/28/2020 12:41 EDT Electronically signed by Elmer [facility] Conversion Fund Accounting Manager Cerner at 11/10/2022 9:30 AM CDT documented in this encounter Plan of Treatment Not on file documented as of this encounter Visit Diagnoses Not on filedocumented in this encounter Care Teams Road Worker Relationship Specialty Start Date End Date Robert Batista MD [address] [place] [phone] PCP - General Family Medicine 07/04/25 documented as of this encounter
--- OUTSIDE RECORDS SUMMARY | 2025-07-11 04:27 | XMS_ITS | Encounter Summary ---
Author Organization [employer] ([place], [place], [place], [place], [place]) Address [address] [place] [address] Care Team Providers Care Developmental Services Worker Name Role Phone Robert Batista MD Primary Care Provider [phone] Encounter Details Date Type Department Care Team (Late st Contact Info) Description 01/11/2021 Transcribed Document [facility] [place] [facility] [place] [address] ProviderMacrina MD [address] [place] [address] Social History Tobacco Use Types Packs/Day Years Used Date Smoking Tobacco: Never Assessed Sex and Gender Information Value Date Recorded Sex Assigned at Not on file Legal Sex Male 1:13 PM CDT Gender Identity Not on file Sexual Orientation Not on file documented as of this encounter Miscellaneous Notes * Cerner Conversion Note - Macrina ProviderMD - 01/11/2021 3:00 AM CDT Nutrition [...] and w/ diarrhea. 01/08: high f/up. Per SOUND PERSON notes, pt not ready for instrumental. TF [...] Est needs: 1600-1800kcal (25-28kcal/kg) 78g PRO (1.2g/kg) Alxea Dukes Dietitian - 01/11/2021 12:00 EDT Nutrition [...] Continue Osmolite 1.5 @ 50ml/hr + 1 tzasaonfx24 daily (provides 1710kcal, 83g PRO). FW per MD. Goal: meet est needs 2. Monitor elytes and replace prn Goal: wnls 3. Obtain wt 2x weekly. Noted fluctuations. goal: avoid sig wt changes 4. Monitor bowel fxn. Administer bowel regimen prn - LBM 01/08. goal: normal BMs Risk: High Nutrition Care Level : High Alexa Dukes Dietitian - 01/11/2021 12:00 EDT Electronically signed by [facility], [facility] Conversion General Studies Program Chair Cerner at 11/10/2022 9:28 AM CDT documented in this encounter Plan of Treatment Not on file documented as of this encounter Visit Diagnoses Not on filedocumented in this encounter Care Teams Developmental Services Worker Relationship Specialty Start Date End Date Robert Batista MD [address], [place] [phone] PCP - General Family Medicine 07/04/25 documented as of this encounter
--- OUTSIDE RECORDS SUMMARY | 2025-07-11 04:27 | XMS_ITS | Encounter Summary ---
Author Organization [employer] ([place], [place], [place], [place], [place]) Address [address] [place] [address] Care Team Providers Care Dependency Program Director Name Role Phone Robert Batista MD Primary Care Provider [phone] Encounter Details Date Type Department Care Team (Late st Contact Info) Description 01/01/2021 Transcribed Document [facility] [place] [address] [place] [address] ProviderMacrina MD [address] [place] [address] Social History Tobacco Use Types Packs/Day Years Used Date Smoking Tobacco: Never Assessed Sex and Gender Information Value Date Recorded Sex Assigned at Not on file Legal Sex Male 1:13 PM CDT Gender Identity Not on file Sexual Orientation Not on file documented as of this encounter Miscellaneous Notes * Cerner Conversion Note - Macrina ProviderMD - 01/01/2021 11:42 AM CDT Consult Phone Call Documentation Entered On: 01/01/2021 15:00 EDT Performed On: 01/01/2021 11:42 EDT by Sue Hazel Pharmacoepidemiologist-Health Unit Coord Phone Call for Consults Consult Phone Call/Page Attempt : First call Sue Hazel Care Asst-Health Unit Coord - 01/01/2021 15:00 EDT documented in this encounter Plan of Treatment Not on file documented as of this encounter Visit Diagnoses Not on filedocumented in this encounter Care Teams Dependency Program Director Relationship Specialty Start Date End Date Robert Batista MD [address] [place] [address] PCP - General Family Medicine 07/04/25 documented as of this encounter
--- OUTSIDE RECORDS SUMMARY | 2025-07-11 04:27 | XMS_ITS | Encounter Summary ---
Author Organization [employer] ([place], [place], [place], [place], [place]) Address [address] [place] [address] Care Team Providers Care Biology Department Chair Name Role Phone Robert Batista MD Primary Care Provider [phone] Encounter Details Date Type Department Care Team (Late st Contact Info) Description 01/10/2021 Transcribed Document [facility] [place] [facility] [place] [address] ProviderMacrina MD [address] [place], [place] [id number] Social History Tobacco Use Types Packs/Day Years [...] 1012. 01/02/21: POD#6 Intubated and sedated on [id number]/hr and Precedex .6mcg/kg/min. He is also on [...] 2L/NC TF 50ml/hr Continue P.T. Transfer to [facility] Pt will need rehab when [...] Pre-Op Diagnosis, Medical. Electronically signed by Elmer, [facility] Conversion Glove Turner And Former Automatic Cerner at 11/10/2022 9:29 AM CDT documented in this encounter Plan of Treatment Not on file documented as of this encounter Visit Diagnoses Not on filedocumented in this encounter Care Teams Biology Department Chair Relationship Specialty Start Date End Date Robert Batista MD [address] [place] [phone] PCP - General Family Medicine 07/04/25 documented as of this encounter
--- OUTSIDE RECORDS SUMMARY | 2025-07-11 04:27 | XMS_ITS | Encounter Summary ---
Author Organization [employer] ([place], [place], [place], [place], [place]) Address [address] [place] [address] Care Team Providers Care Facility Practice Specialist Name Role Phone Robert Batista MD Primary Care Provider [phone] Encounter Details Date Type Department Care Team (Late st Contact Info) Description 12/28/2020 Transcribed Document [facility] [place] Family Medicine [address] [place] [address] ProviderMacrina MD [address] [place], [place] [address] Social History Tobacco Use Types Packs/Day Years Used Date Smoking Tobacco: Never Assessed Sex and Gender Information Value Date Recorded Sex Assigned at Not on file Legal Sex Male 1:13 PM CDT Gender Identity Not on file Sexual Orientation Not on file documented as of this encounter Miscellaneous Notes * Cerner Conversion Note - Macrina ProviderMD - 12/28/2020 1:16 PM CDT Spiritual Care Assessment Entered On: 12/28/2020 14:16 EDT Performed On: 12/28/2020 13:16 EDT by BRISSA SULLIVAN General Information Initial Visit : No Referred by : Survival Specialist follow-up Referral Reason Comment : Critical care [...] Prayer shared, Spiritual/Confucianism support provided BRISSA SULLIVAN 12/28/2020 14:05 EDT documented in this encounter Plan of Treatment Not on file documented as of this encounter Visit Diagnoses Not on filedocumented in this encounter Care Teams Facility Practice Specialist Relationship Specialty Start Date End Date Robert Batista MD [address], [place] [phone] PCP - General Family Medicine 07/04/25 documented as of this encounter
--- OUTSIDE RECORDS SUMMARY | 2025-07-11 04:27 | XMS_ITS | Encounter Summary ---
Author Organization [email or web address] ([place], [place], [place], [place], [place]) Address [address] [place] [address] Care Team Providers Care Tooling Engineering Tech Name Role Phone Robert Batista MD Primary Care Provider [phone] Encounter Details Date Type Department Care Team (Late st Contact Info) Description 01/01/2021 Transcribed Document [facility] [place] [address] ProviderMacrina MD [address] [place] [address] Social History Tobacco Use Types Packs/Day Years [...] 01/01/2021 9:45 AM CDT Patient: JOSE ADORNO [facility]: [id number] Age: 80 years Sex: Male : 1940 [...] Problems Aortic valve stenosis / SNOMED CT 420678200 / Confirmed Arthritis of right knee / SNOMED CT 3467406315 / Confirmed At risk for sleep apnea / IMO 00297538 / Confirmed Chronic anxiety / SNOMED CT 771037916 / Confirmed Back pain, chronic / SNOMED CT 947075050 / Confirmed Colorectal surgery / SNOMED CT 9884853941 / Confirmed Disorder of prostate / SNOMED CT 94018623 / Confirmed GERD - Gastro-esophageal reflux disease / SNOMED CT 4003439601 / Confirmed H/O peripheral neuropathy / SNOMED CT 407620220 / Confirmed feet tingle all the time HTN - Hypertension / SNOMED CT 4585196601 / Confirmed Hyperlipidemia / SNOMED CT 65873933 / Confirmed Hypertension / SNOMED CT 03240036 / Confirmed Aortic stenosis, severe / SNOMED CT 4851730149 / Confirmed Resolved: Cancer of colon / SNOMED CT 4354651893, Active Problems (13) Aortic stenosis, severe Aortic [...] 13.1 (DEC 30) H 12.8 (DEC 30) HB L 8.7 (DEC 08) L 8.8 (DEC 07) L 8.4 (DEC 31) L 8.6 (DEC 06) HCT L 26.5 (JAN 01) L 26.2 (DEC 31) L 25.8 (CESAR 07) L 26.1 (CESAR 06) Plt L 146 (CESAR 08) L 108 (CESAR 07) L 60 (CESAR 06) L 70 (CESAR 06) Na 143 (CESAR 08) 142 (CESAR 07) 141 (CESAR 07) 142 (CESAR 07) K 3.6 (CESAR 08) [...] L 4.8 (CESAR 04) ALB L 2.5 (JAN 01) L 2.4 (DEC 30) L 2.4 (DEC 29) L 2.7 (DEC 28) Troponin <0.015 (DEC 25) . Blood Gases (Current Encounter/Past 24 Hours) pH Art 7.50 HI 01/01/2021 04:52 pCO2 Art 34.6 LOW 01/01/2021 04:52 pO2 Art 91.7 01/01/2021 04:52 HCO3 Art 26.8 [place] 01/01/2021 04:52 BE Art 3.8 [place] 01/01/2021 04:52 sO2 Art 97.6 01/01/2021 04:52 tHb Art 15.0 01/01/2021 04:52 FHHb 2.4 NA 01/01/2021 04:52 ctO2 20.4 NA 01/01/2021 04:52 FIO2 Art 100 NA 01/01/2021 04:52 Delivery Device Type Art NIV 01/01/2021 04:52 Temperature, F Art 98.6 NA 01/01/2021 04:52 Art Blood Gas (ABG) Site Left Brachial 01/01/2021 04:52 Acceptable Grey's Test Art Non-Applicable 01/01/2021 04:52 Ventilator Mode Art N/A 01/01/2021 04:52 Set Rate Art 18.0 NA 01/01/2021 04:52 Respiratory Rate Art 24.0 01/01/2021 04:52 Comment Art niv 14/10 NA 01/01/2021 04:52 ABG Num of Draw Attempts 1 01/01/2021 04:52 PaO2/FiO2 calculated 92 01/01/2021 04:52 JAN 01 01:51 143 108 H 26 / 80 3.6 28 0.70 \ JAN 01 01:51 \ L 8.7 / H 11.7 L 146 / L 26.5 \ Blood Gases (Current Encounter/Past 24 Hours) pH Art 7.50 HI 01/01/2021 04:52 pCO2 Art 34.6 LOW 01/01/2021 04:52 pO2 Art 91.7 01/01/2021 04:52 HCO3 Art 26.8 [place] 01/01/2021 04:52 BE Art 3.8 [place] 01/01/2021 [...] 01/01/2021 04:52 Radiology Results (Last 48 hours) [id number] -- 12/27/2020 06:39 CR Chest 1 Vw [...] team, including critical care team, CCRN, RT., Leathersmith , case management and clinical pharmacist. I [...] risk for reintubation Disposition intensive care unit Electronically signed by Elmer [facility] Conversion Reaming Press Operator Cerner at 11/10/2022 9:20 AM CDT documented in this encounter Plan of Treatment Not on file documented as of this encounter Visit Diagnoses Not on filedocumented in this encounter Care Teams Tooling Engineering Tech Relationship Specialty Start Date End Date Robert Batista MD [address] [place] [phone] PCP - General Family Medicine 07/04/25 documented as of this encounter
--- OUTSIDE RECORDS SUMMARY | 2025-07-11 04:27 | XMS_ITS | Encounter Summary ---
Author Organization [employer] ([place], [place], [place], [place], [place]) Address [address] [place] [address] Care Team Providers Care Surgical Appliance Fitter Name Role Phone Robert Batista MD Primary Care Provider [phone] Encounter Details Date Type Department Care Team (Late st Contact Info) Description 01/06/2021 Transcribed Document [facility] [place] [address] ProviderMacrina MD [address] [place] [address] Social History Tobacco Use Types Packs/Day Years [...] 1012. 01/02/21: POD#6 Intubated and sedated on [id number]/hr and Precedex .6mcg/kg/min. He is also on [...] At risk for sleep apnea / IMO 94568085 / Confirmed Colorectal surgery / SNOMED CT 0248195081 / Confirmed Aortic valve stenosis / SNOMED CT 152203625 / Confirmed HTN - Hypertension / SNOMED CT 7408078646 / Confirmed, Active Problems (13) Aortic stenosis, [...] Non-distended, Normal bowel sounds. Integumentary: Warm, Dry, [place]mele. Neurologic: The pt is able to move [...] - Pre-Op Diagnosis, Medical. Electronically signed by Interface, [facility] Conversion Medical Genetics Director Cerner at 11/10/2022 9:29 AM CDT documented in this encounter Plan of Treatment Not on file documented as of this encounter Visit Diagnoses Not on filedocumented in this encounter Care Teams Surgical Appliance Fitter Relationship Specialty Start Date End Date Robert Batista MD [address] [place] [address] PCP - General Family Medicine 07/04/25 documented as of this encounter
--- OUTSIDE RECORDS SUMMARY | 2025-07-11 04:27 | XMS_ITS | Encounter Summary ---
Author Organization [employer] ([place], [place], [place], [place], [place]) Address [address] [place] [address] Care Team Providers Care Pouncing Lathe Operator Name Role Phone Robert Batista MD Primary Care Provider [phone] Encounter Details Date Type Department Care Team (Late st Contact Info) Description 01/17/2021 Transcribed Document [facility] [place] [address] [place] [address] ProviderMacrina MD [address] [place] [address] Social History Tobacco Use Types Packs/Day Years Used Date Smoking Tobacco: Never Assessed Sex and Gender Information Value Date Recorded Sex Assigned at Not on file Legal Sex Male 1:13 PM CDT Gender Identity Not on file Sexual Orientation Not on file documented as of this encounter Miscellaneous Notes * Cerner Conversion Note - Macrina Cordova MD - 01/17/2021 3:[address] [facility] Main OR Preop Summary Primary Physician: PEYTON BEATTY MD Finalized Date/Time: 01/17/21 11:00:37 Pt. Name: JOSE ADORNO Ade /Sex: 1940 Male Med Rec #: [id number] Physician: DANYELLE WALTERS MD-[facility] Financial #: [id number] Pt. Type: I Room/Bed: [facility]/ Admit/Disch: 12/27/20 06:39:00 - Institution: [facility] PreOp Case Times Entry 1 In Preop 01/17/21 10:32:00 Ready for Holding n/a Room Patient Ready for 01/17/21 10:58:00 Surgery Patient Out of Preop 01/17/21 10:59:00 Patient Out of n/a Holding Room Last Modified By: Mariana Walsh RN 01/17/21 10:59:54 Finalized By: Mariana Walsh RN Document Signatures Signed By: Mariana Walsh RN 01/17/21 11:00 documented in this encounter Plan of Treatment Not on file documented as of this encounter Visit Diagnoses Not on filedocumented in this encounter Care Teams Pouncing Lathe Operator Relationship Specialty Start Date End Date Robert Batista MD [address], [place] [phone] PCP - General Family Medicine 07/04/25 documented as of this encounter
--- OUTSIDE RECORDS SUMMARY | 2025-07-11 04:27 | XMS_ITS | Encounter Summary ---
Author Organization [employer] ([place], [place], [place], [place], [place]) Address [address] [place] [address] Care Team Providers Care Packing Machine Inspector Name Role Phone Robert Batista MD Primary Care Provider [phone] Encounter Details Date Type Department Care Team (Late st Contact Info) Description 01/17/2021 Transcribed Document [facility] [facility] [place] [address] ProviderMacrina MD [address] [place] [id number] Social History Tobacco Use Types Packs/Day Years [...] 01/17/2021 11:31 AM CDT Patient: JOSE ADORNO [facility]: [id number] Age: 80 Years Sex: Male : 1940 *Operation EGD with PEG Indication for Surgery Dysphagia, feeding difficulty *Preoperative Diagnosis Dysphagia, feeding difficulty *Postoperative Diagnosis Dysphagia, feeding difficulty *Surgeon(s) Primary Surgeon PEYTON BEATTY MD (Surgeon/Proceduralist, [facility]) EMILIANO Jordan *Procedure Narrative He was brought [...] the stomach under direct vision. A 20 Malaysian PEG was placed under standard pull technique. [...] Loss Minimal *Findings Successful placement of 20 Malaysian PEG *Specimen(s) None Complications None immediate Date of Service Date/Time of Service SN - Proc - Start Time: 12/27/20 17:41:00 (12/27/20 18:39:23) documented in this encounter Plan of Treatment Not on file documented as of this encounter Visit Diagnoses Not on filedocumented in this encounter Care Teams Packing Machine Inspector Relationship Specialty Start Date End Date Robert Batista MD [address] [place], [place] [phone] PCP - General Family Medicine 07/04/25 documented as of this encounter
--- OUTSIDE RECORDS SUMMARY | 2025-07-11 04:27 | XMS_ITS | Encounter Summary ---
Author Organization [employer] ([place], [place], [place], [place], [place]) Address [address] [place] [address] Care Team Providers Care Cooker Loader Name Role Phone Robert Batista MD Primary Care Provider [phone] Encounter Details Date Type Department Care Team (Late st Contact Info) Description 12/28/2020 Transcribed Document [facility] [place] [facility] [place] [address] ProviderMacrina MD [address] [place] [id number] Social History Tobacco Use Types Packs/Day Years [...] At risk for sleep apnea / IMO 43477619 / Confirmed Colorectal surgery / SNOMED CT 6395354673 / Confirmed Aortic valve stenosis / SNOMED CT 373485211 / Confirmed HTN - Hypertension / SNOMED CT 5403131066 / Confirmed, Active Problems (13) Aortic stenosis, [...] 17.9 (DEC 27) HB L 8.3 (DEC 28) L 8.3 (CESAR 04) L 8.2 (CESAR 04) L 7.9 (CESAR 03) HCT L 23.9 (CESAR 04) L 23.8 (CESAR 04) L 23.7 (CESAR 04) L 22.8 (CESAR 03) Plt L 124 (CESAR 04) [...] 03) 1.0 (CESAR 01) PTN L 4.8 (DEC 28) L 4.3 [...] 12/28/2020 04:43 Radiology Results (Last 48 hours) [id number] -- 12/27/2020 06:39 CR Chest 1 Vw [...] patient is 77 minutes Electronically signed by Elmer, [facility] Conversion Import/Export Specialist Cerner at 11/10/2022 9:09 AM CDT documented in this encounter Plan of Treatment Not on file documented as of this encounter Visit Diagnoses Not on filedocumented in this encounter Care Teams Cooker Loader Relationship Specialty Start Date End Date Robert Batista MD [address] [place] [place] [phone] PCP - General Family Medicine 07/04/25 documented as of this encounter
--- OUTSIDE RECORDS SUMMARY | 2025-07-11 04:27 | XMS_ITS | Encounter Summary ---
Author Organization [employer] ([place], [place], [place], [place], [place]) Address [address] [place] [address] Care Team Providers Care Puttying And Calking Supervisor Name Role Phone Robert Batista MD Primary Care Provider [phone] Encounter Details Date Type Department Care Team (Late st Contact Info) Description 01/06/2021 Transcribed Document [facility] [place] Family Medicine [address] [place] [address] ProviderMacrina MD [address] [place] [address] Social History Tobacco Use Types Packs/Day Years Used Date Smoking Tobacco: Never Assessed Sex and Gender Information Value Date Recorded Sex Assigned at Not on file Legal Sex Male 1:13 PM CDT Gender Identity Not on file Sexual Orientation Not on file documented as of this encounter Miscellaneous Notes * Cerner Conversion Note - Macrina Cordova MD - 01/06/2021 5:00 PM CDT Chart Check - Review Order Profile Entered On: 01/06/2021 18:26 EDT Performed On: 01/06/2021 17:00 EDT by Shayy Bowie, RN Chart Check Powerplans Initiated/Discontinued as Appropriate : Yes All Active Orders Reviewed : Yes Shayy Bowie RN - 01/06/2021 18:26 EDT Electronically signed by Elmer [facility] Conversion Child Center Assistant Cerner at 11/10/2022 9:05 AM CDT documented in this encounter Plan of Treatment Not on file documented as of this encounter Visit Diagnoses Not on filedocumented in this encounter Care Teams Puttying And Calking Supervisor Relationship Specialty Start Date End Date Robert Batista MD [address] [place], [place] [phone] PCP - General Family Medicine 07/04/25 documented as of this encounter
--- OUTSIDE RECORDS SUMMARY | 2025-07-11 04:27 | XMS_ITS | Encounter Summary ---
Author Organization [employer] ([place], [place], [place], [place], [place]) Address [address] [place] [address] Care Team Providers Care Sack Sorter Name Role Phone Robert Batista MD Primary Care Provider [phone] Encounter Details Date Type Department Care Team (Late st Contact Info) Description 01/17/2021 Transcribed Document [facility] [place] [facility] [place] [address] ProviderMacrina MD [address] [place], [place] [address] Social History Tobacco Use Types Packs/Day Years [...] on filedocumented in this encounter Care Teams Sack Sorter Relationship Specialty Start Date End Date Robert Batista MD [address] [place], [place] [phone] PCP - General Family Medicine 07/04/25 documented as of this encounter
--- OUTSIDE RECORDS SUMMARY | 2025-07-11 04:27 | XMS_ITS | Encounter Summary ---
Author Organization [employer] ([place], [place], [place], [place], [place]) Address [address] [place] [address] Care Team Providers Care Administrative Support Associate Name Role Phone Robert Batista MD Primary Care Provider [phone] Encounter Details Date Type Department Care Team (Late st Contact Info) Description 01/06/2021 Transcribed Document [facility] Pulm & Critical Care Medicine [address] [place] [address] [place] [phone] [place] [address] [place] [address] [address] [place] [address] Social History Tobacco Use Types Packs/Day Years [...] 0.5 MCG/KG/. Awake and following commands, positive business analysis specialist in bilateral hands. MRI brain yesterday [...] 180s. 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; development coordinator and moves extremities bilaterally but weaker [...] Medical Aortic valve stenosis / SNOMED CT 851753430 / Confirmed At risk for sleep apnea / IMO 41653827 / Confirmed Colorectal surgery / SNOMED CT 1485512133 / Confirmed HTN - Hypertension / SNOMED CT 0573857520 / Confirmed, Active Problems (13) Aortic stenosis, [...] (Last four charted values) WBC H 15.8 (CESAR 13) H 9.9 (CESAR 12) 8.0 (CESAR 11) H 9.6 (CESAR 10) HB L 9.2 (CESAR 13) L 7.8 (CESAR 12) L 7.3 (CESAR 11) L 8.1 (CESAR 10) HCT L [...] 80 (CESAR 13) 63 (CESAR 12) 63 (JAN 04) 73 (JAN 03) T Bili H 1.8 (JAN 06) 1.1 (JAN 05) H 1.5 (JAN 04) H 1.3 (JAN 03) PTN L 6.1 (JAN 06) L 5.3 (JAN 05) L 5.2 (JAN 04) L 5.3 (JAN 03) ALB L 2.5 (JAN 06) L 2.2 (JAN 05) L 2.3 (JAN 04) L 2.1 (JAN 03) Troponin <0.015 (DEC 25) . Blood Gases (Current Encounter/Past 24 Hours) pH Art 7.49 NM 01/06/2021 07:08 pCO2 Art 37.3 01/06/2021 05:09 pO2 Art 72.3 LOW 01/06/2021 07:08 HCO3 Art 28.7 NM 01/06/2021 07:08 BE Art 5.1 NM 01/06/2021 07:08 sO2 Art 95.8 01/06/2021 05:09 tHb Art 9.8 LOW 01/06/2021 07:08 FHHb 4.1 01/06/2021 05:09 ctO2 13.1 01/06/2021 05:09 Delivery Device Type Art Cannula 01/06/2021 05:09 Temperature, F Art 98.6 01/06/2021 05:09 Art Blood Gas (ABG) Site Right Radial 01/06/2021 05:09 Acceptable Grey's Test Art Acceptable 01/06/2021 05:09 Ventilator Mode Art N/A 01/06/2021 05:09 Oxygen Flow Rate Art 6.0 01/06/2021 05:09 ABG Num of Draw Attempts 1 01/06/2021 05:09 JAN 06 04:30 138 106 22 / H 119 3.8 28 L 0.60 \ JAN 06 04:30 \ L 9.2 / H 15.8 253 / L 28.1 \ Blood Gases (Current Encounter/Past 24 Hours) pH Art 7.49 NM 01/06/2021 07:08 pCO2 Art 37.3 01/06/2021 05:09 [...] 01/06/2021 05:09 Radiology Results (Last 48 hours) [id number] -- 12/27/2020 06:39 CR Chest 1 Vw [...] CT-GUIDED THORACENTESISHISTORY: Pleural effusion.ATTENDING PHYSICIAN: Dr. Youssef COGNOS ANALYST: ANAYA CantorCTECHNIQUE: Informed consent was obtained from [...] on filedocumented in this encounter Care Teams Administrative Support Associate Relationship Specialty Start Date End Date Robert Batista MD [address] [place] [address] PCP - General Family Medicine 07/04/25 documented as of this encounter
--- OUTSIDE RECORDS SUMMARY | 2025-07-11 04:27 | XMS_ITS | Encounter Summary ---
Author Organization [employer] ([place], [place], [place], [place], [place]) Address [address] [place] [address] Care Team Providers Care Tour Actor Name Role Phone Robert Batista MD Primary Care Provider [phone] Encounter Details Date Type Department Care Team (Late st Contact Info) Description 12/28/2020 Transcribed Document [facility] [place] [address] [place] [address] ProviderMacrina MD [address] [place], [place] [address] Social History Tobacco Use Types Packs/Day Years Used Date Smoking Tobacco: Never Assessed Sex and Gender Information Value Date Recorded Sex Assigned at Not on file Legal Sex Male 1:13 PM CDT Gender Identity Not on file Sexual Orientation Not on file documented as of this encounter Miscellaneous Notes * Cerner Conversion Note - Macrina ProviderMD - 12/28/2020 12:31 PM CDT UM Authorization Entered On: 12/28/2020 12:31 EDT Performed On: 12/28/2020 12:31 EDT by ANGELA LOFTON RN-Utilization Review Primary Insurance Authorization Authorization and Policy Numbers : Insurance 1 Health Plan: MEDICARE Policy Number: [id number] Authorization Number: Insurance 2 Health Plan: [employer] Medicare Supplement Policy Number: [id number] Authorization Number: Insurance Primary Name : MEDICARE Policy Number: [id number] Authorized Service Begin Date-Primary : 12/27/2020 EDT Historical Authorization Comments-Primary : No Authorization Comments Found ANGELA LOFTON, RN-Utilization Review - 12/28/2020 12:31 EDT Electronically signed by [facility], [facility] Conversion Type Soldering Machine Tender Cerner at 11/10/2022 9:18 AM CDT documented in this encounter Plan of Treatment Not on file documented as of this encounter Visit Diagnoses Not on filedocumented in this encounter Care Teams Tour Actor Relationship Specialty Start Date End Date Robert Batista MD [address] [place] [place] [phone] PCP - General Family Medicine 07/04/25 documented as of this encounter
--- OUTSIDE RECORDS SUMMARY | 2025-07-11 04:27 | XMS_ITS | Encounter Summary ---
Author Organization [employer] ([place], [place], [place], [place], [place]) Address [address] [place] [address] Care Team Providers Care Criminal Justice Social Worker Name Role Phone Robert Batista MD Primary Care Provider [phone] Encounter Details Date Type Department Care Team (Late st Contact Info) Description 12/28/2020 Transcribed Document [facility] Family Medicine [address] [place] [address] ProviderMacrina MD [address] [place] [address] Social History Tobacco Use Types Packs/Day Years Used Date Smoking Tobacco: Never Assessed Sex and Gender Information Value Date Recorded Sex Assigned at Not on file Legal Sex Male 1:13 PM CDT Gender Identity Not on file Sexual Orientation Not on file documented as of this encounter Miscellaneous Notes * [employer]ner Conversion Note - Macrina ProviderMD - 12/28/2020 2:00 AM CDT Shareholder Details Entered On: 12/28/2020 3:44 EDT Performed [...] on filedocumented in this encounter Care Teams Criminal Justice Social Worker Relationship Specialty Start Date End Date Robert Batista MD [address] [place] [phone] PCP - General Family Medicine 07/04/25 documented as of this encounter
--- OUTSIDE RECORDS SUMMARY | 2025-07-11 04:27 | XMS_ITS | Encounter Summary ---
Author Organization [employer] ([place], [place], [place], [place], [place]) Address [address] [place] [address] Care Team Providers Care Assistant Import Manager Name Role Phone Robert Batista MD Primary Care Provider [phone] Encounter Details Date Type Department Care Team (Late st Contact Info) Description 01/05/2021 Transcribed Document [facility] Pulm & Critical Care Medicine [address] [place] [address] [place] [phone] [place] [address] [place] [address] [address] [place] [address] Social History Tobacco Use Types Packs/Day Years [...] 0.5 MCG/KG/. Awake and following commands, positive donkey engine firer/fireman in bilateral hands. MRI brain yesterday revealed [...] Medical Aortic valve stenosis / SNOMED CT 901275552 / Confirmed At risk for sleep apnea / IMO 12271635 / Confirmed Colorectal surgery / SNOMED CT 8137817097 / Confirmed HTN - Hypertension / SNOMED CT 1308285105 / Confirmed, Active Problems (13) Aortic stenosis, [...] values) WBC H 9.9 (DEC 12) 8.0 (DEC 11) H 9.6 (CESAR 10) 9.0 (DEC 09) HB L 7.8 (DEC 12) L 7.3 (CESAR 11) L 8.1 (CESAR 10) L 7.7 (DEC 09) HCT L 24.2 (CESAR 12) L [...] Attempts 1 NA 01/05/2021 04:28 PaO2/FiO2 calculated 01/05/2021 04:28 JAN 05 05:20 141 111 [...] 01/05/2021 04:28 Radiology Results (Last 48 hours) [id number] -- 12/27/2020 06:39 CR Chest 1 Vw [...] dependent pleural effusions. Small on theleft and tvyhy-dx-zotnkllw on the right side. These are associated [...] CT-GUIDED THORACENTESISHISTORY: Pleural effusion.ATTENDING PHYSICIAN: Dr. Youssef SCROLL SAW OPERATOR: ANAYA CantorCTECHNIQUE: Informed consent was obtained [...] on filedocumented in this encounter Care Teams Assistant Import Manager Relationship Specialty Start Date End Date Batista, Robert CMD [address] [place] [phone] PCP - General Family Medicine 07/04/25 documented as of this encounter
--- OUTSIDE RECORDS SUMMARY | 2025-07-11 04:27 | XMS_ITS | Encounter Summary ---
Author Organization [employer] ([place], [place], [place], [place], [place]) Address [address] [place] [address] Care Team Providers Care Seat Covers Trimmer Name Role Phone Robert Batista MD Primary Care Provider [phone] Encounter Details Date Type Department Care Team (Late st Contact Info) Description 01/10/2021 Transcribed Document [facility] [place] [facility] [place] [address] ProviderMacrian MD [address] [place], [place] [id number] Social History Tobacco Use Types Packs/Day Years [...] MCG/KG/. Awake and following commands, positive associate professor plant pathology in bilateral hands. MRI brain yesterday revealed [...] 180s. 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; junior estimator and moves extremities bilaterally but weaker on [...] Problems Aortic valve stenosis / SNOMED CT 264206081 / Confirmed Arthritis of right knee / SNOMED CT 4941683474 / Confirmed At risk for sleep apnea / IMO 61818590 / Confirmed At risk for violence / IMO 12725324 / Confirmed Chronic anxiety / SNOMED CT 332901506 / Confirmed Back pain, chronic / SNOMED CT 317970306 / Confirmed Colorectal surgery / SNOMED CT 9805739138 / Confirmed Disorder of prostate / SNOMED CT 10633043 / Confirmed GERD - Gastro-esophageal reflux disease / SNOMED CT 8221461835 / Confirmed H/O peripheral neuropathy / SNOMED CT 294518909 / Confirmed feet tingle all the time HTN - Hypertension / SNOMED CT 9745948112 / Confirmed Hyperlipidemia / SNOMED CT 24081706 / Confirmed Hypertension / SNOMED CT 87484549 / Confirmed Aortic stenosis, severe / SNOMED CT 9142711982 / Confirmed Resolved: Cancer of colon / SNOMED CT 0373238415, Active Problems (14) Aortic stenosis, severe Aortic [...] 10 12:00) 90 (JAN 10 07:00) 113 (JAN 09 14:00) Resp Rate 20 (JAN 10 12:00) [...] four charted values) WBC H 13.5 (DEC 17) H 14.4 (CESAR [...] Gas Results Found (Past 24 Hours) CESAR 17 04:14 140 107 H 35 / H 154 4.3 28 0.80 \ JAN 10 04:14 \ L 9.1 / H 13.5 H 424 / L 28.9 \ Blood Gases (Current Encounter/Past 24 Hours) No Blood Gas Results Found (Past 24 Hours) Radiology Results (Last 48 hours) [id number] -- 12/27/2020 06:39 CR Chest 1 Vw [...] on filedocumented in this encounter Care Teams Seat Covers Trimmer Relationship Specialty Start Date End Date Robert Batista MD [address] [place] [address] PCP - General Family Medicine 07/04/25 documented as of this encounter
--- OUTSIDE RECORDS SUMMARY | 2025-07-11 04:27 | XMS_ITS | Encounter Summary ---
Author Organization [employer] ([place], [place], [place], [place], [place]) Address [address] [place] [address] Care Team Providers Care Fountain Server Name Role Phone Robert Batista MD Primary Care Provider [phone] Encounter Details Date Type Department Care Team (Late st Contact Info) Description 01/11/2021 Transcribed Document [facility] [place] [address] [place] [address] ProviderMacrina MD [address] [place] [address] Social History Tobacco Use Types Packs/Day Years Used Date Smoking Tobacco: Never Assessed Sex and Gender Information Value Date Recorded Sex Assigned at Not on file Legal Sex Male 1:13 PM CDT Gender Identity Not on file Sexual Orientation Not on file documented as of this encounter Miscellaneous Notes * Cerner Conversion Note - Macrina ProviderMD - 01/11/2021 4:00 AM CDT Height [...] Source : Measured Height Entry Format : Sheridan Height, Feet : 0 ft Height, Inches : 67.75 Inch Clinical Height : 172.09 cm Body Surface Area (BSA), Routine : 1.74 m2 Body Mass Index (BMI), Routine : 21.21 kg/m2 Jaja Jernigan Non Emp RN - 01/11/2021 5:19 EDT Electronically signed by Elmer [facility] Conversion Lean Manager Cerner at 11/10/2022 9:25 AM CDT documented in this encounter Plan of Treatment Not on file documented as of this encounter Visit Diagnoses Not on filedocumented in this encounter Care Teams Fountain Server Relationship Specialty Start Date End Date Robert Batista MD [address] [place] [address] PCP - General Family Medicine 07/04/25 documented as of this encounter
--- OUTSIDE RECORDS SUMMARY | 2025-07-11 04:27 | XMS_ITS | Encounter Summary ---
Author Organization [employer] ([place], [place], [place], [place], [place]) Address [address] [place] [address] Care Team Providers Care Bartender Helper Name Role Phone Robert Batista MD Primary Care Provider [phone] Encounter Details Date Type Department Care Team (Late st Contact Info) Description 01/17/2021 Transcribed Document [facility] Family Medicine [facility] [place] [address] ProviderMacrina MD [address] [place], [place] [id number] Social History Tobacco Use Types Packs/Day Years [...] 1012. 01/02/21: POD#6 Intubated and sedated on [id number]/hr and Precedex .6mcg/kg/min. He is also on [...] 2L/NC TF 50ml/hr Continue P.T. Transfer to [facility] Pt will need rehab when clinically ready 01/11/21 POD#15 O2 91% 2L/NC TF 50ml/hr Continue P.T. Awaiting transfer to [facility] 01/12/2021 POD #16 Continues tube feedings, tolerating Steady progress 01/13/2021 POD #17 ALINA Bebe Will need rehab placement 01/14/2021 POD #18 Patient still not cleared for PO [facility] has accepted the patient, but he needs a PEG. Will consult general surgery for PEG placement prior to transfer to [facility] 01/15/2021 POD #19 Planning to repeat swallow evaluation. Depending on results, may require PEG prior to transfer to [facility]. 01/16/2021: POD #20 Continue tube feedings PEG tomorrow per Dr. Rodriguez Spoke with , will contact [facility] tomorrow for bed availability once PEG is placed. 01/17/2021: POD #21 Failed swallow evaluation yesterday For PEG placement today. [facility] after PEG placement today if bed available. [...] - Pre-Op Diagnosis, Medical. Electronically signed by [facility], [facility] Conversion Chief Technical Officer Cerner at 11/10/2022 9:26 AM CDT documented in this encounter Plan of Treatment Not on file documented as of this encounter Visit Diagnoses Not on filedocumented in this encounter Care Teams Bartender Helper Relationship Specialty Start Date End Date Robert Batista MD [address] [place] [address] PCP - General Family Medicine 07/04/25 documented as of this encounter
--- OUTSIDE RECORDS SUMMARY | 2025-07-11 04:27 | XMS_ITS | Encounter Summary ---
Author Organization [employer] ([place], [place], [place], [place], [place]) Address [address] [place] [address] Care Team Providers Care Compensation Analyst Name Role Phone Robert Batista MD Primary Care Provider [phone] Encounter Details Date Type Department Care Team (Late st Contact Info) Description 01/05/2021 Transcribed Document [facility] [place] [address] ProviderMacrina MD [address] [place] [id number] Social History Tobacco Use Types Packs/Day Years Used Date Smoking Tobacco: Never Assessed Sex and Gender Information Value Date Recorded Sex Assigned at Not on file Legal Sex Male 1:13 PM CDT Gender Identity Not on file Sexual Orientation Not on file documented as of this encounter Miscellaneous Notes * Cerner Conversion Note - Macrina Cordova MD - 01/05/2021 11:43 AM CDT Patient: JOSE [...] on filedocumented in this encounter Care Teams Compensation Analyst Relationship Specialty Start Date End Date Batista, Robert C, MD [address] [place], [place] [address] PCP - General Family Medicine 07/04/25 documented as of this encounter
--- OUTSIDE RECORDS SUMMARY | 2025-07-11 04:27 | XMS_ITS | Encounter Summary ---
Author Organization [employer] ([place], [place], [place], [place], [place]) Address [address] [place] [address] Care Team Providers Care Communications And Signals Supervisor Name Role Phone Robert Batista MD Primary Care Provider [phone] Encounter Details Date Type Department Care Team (Late st Contact Info) Description 01/11/2021 Transcribed Document [facility] [place] [facility] [place] [address] ProviderMacrina MD [address] [place] [id number] Social History Tobacco Use Types Packs/Day Years [...] 0.5 MCG/KG/. 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 MRI brain yesterday revealed [...] 180s. 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 but weaker on [...] Problems Aortic valve stenosis / SNOMED CT 301691184 / Confirmed Arthritis of right knee / SNOMED CT 4988636108 / Confirmed At risk for sleep apnea / IMO 31047308 / Confirmed At risk for violence / IMO 88374003 / Confirmed Chronic anxiety / SNOMED CT 458636636 / Confirmed Back pain, chronic / SNOMED CT 341622177 / Confirmed Colorectal surgery / SNOMED CT 2643697694 / Confirmed Disorder of prostate / SNOMED CT 16101792 / Confirmed GERD - Gastro-esophageal reflux disease / SNOMED CT 2281260896 / Confirmed H/O peripheral neuropathy / SNOMED CT 963297039 / Confirmed feet tingle all the time HTN - Hypertension / SNOMED CT 0391098636 / Confirmed Hyperlipidemia / SNOMED CT 16827030 / Confirmed Hypertension / SNOMED CT 40144153 / Confirmed Aortic stenosis, severe / SNOMED CT 4209132039 / Confirmed Resolved: Cancer of colon / SNOMED CT 4676986500, Active Problems (14) Aortic stenosis, severe Aortic valve stenosis Arthritis of right knee At risk for sleep apnea At risk for violence Back pain, chronic Chronic anxiety Colorectal surgery Disorder of prostate GERD - Gastro-esophageal reflux disease H/O peripheral neuropathy HTN - Hypertension Hyperlipidemia Hypertension Physical Examination VS/Measurements Vitals Signs (last 24 hrs) Last Charted Minimum Maximum Apical HR H 108 (JAN 11 08:33) H 105 (JAN 10 21:41) H 108 (JAN 11 08:33) Mon HR 102 (JAN 11 11:38) 91 (JAN 10 23:00) 110 (JAN 11 03:00) Resp Rate H 28 (JAN 11 11:38) L 13 (JAN 10 17:00) H 36 (JAN 10 18:00) SBP H 145 (JAN 11 07:00) 92 (JAN 10 22:00) H 174 (JAN 11 03:00) DBP 67 (JAN 11 07:00) L 50 (JAN 10 22:00) 83 (JAN 10 15:00) MAP 97 (JAN 11 07:00) 62 (JAN 10 22:00) 119 (JAN 10 17:00) SpO2 95 (JAN 11 11:38) L 90 (JAN 11 04:00) 99 (JAN 10 15:36) Intake & Output Totals Last 24 [...] 18) H 13.5 (DEC 17) H 14.4 (DEC 16) H 16.3 (DEC 15) HB L 8.9 (DEC 18) L 9.1 (CESAR 17) L 8.9 (DEC 16) L 10.0 (DEC 15) HCT L 28.3 (DEC 18) L 28.9 (DEC 17) L 28.0 (CESAR 16) L 30.7 [...] 17) L 2.4 (CESAR 16) L 2.7 (JAN 08) Troponin <0.015 (DEC 25) . Blood Gases (Current Encounter/Past 24 Hours) No Blood Gas Results Found (Past 24 Hours) JAN 11 04:57 139 107 H 33 / H 145 4.5 29 0.70 \ JAN 11 04:57 \ L 8.9 / H 13.5 H 415 / L 28.3 \ Blood Gases (Current Encounter/Past 24 Hours) No Blood Gas Results Found (Past 24 Hours) Radiology Results (Last 48 hours) [id number] -- 12/27/2020 06:39 CR Chest 1 Vw [...] from pulmonary standpoint to be transferred to [facility], 3[facility]. FULL CODE Prognosis - Guarded. I [...] on filedocumented in this encounter Care Teams Communications And Signals Supervisor Relationship Specialty Start Date End Date Robert Batista MD [address] [place] [place] [phone] PCP - General Family Medicine 07/04/25 documented as of this encounter
--- OUTSIDE RECORDS SUMMARY | 2025-07-11 04:27 | XMS_ITS | Encounter Summary ---
Author Organization [employer] ([place], [place], [place], [place], [place]) Address [address] [place] [address] Care Team Providers Care Greenhouse Florist Name Role Phone Robert Batista MD Primary Care Provider [phone] Encounter Details Date Type Department Care Team (Late st Contact Info) Description 01/01/2021 Transcribed Document [facility] Pulm & Critical Care Medicine [address] [place] [address] [place], [place] [phone] [place] [address] [place] [address] [address] [place] [address] Social History Tobacco Use Types Packs/Day Years [...] team, including critical care team, CCRN, RT., Baker Pie , case management and clinical pharmacist. I [...] on filedocumented in this encounter Care Teams Greenhouse Florist Relationship Specialty Start Date End Date Robert Batista MD [address] [place], [place] [address] PCP - General Family Medicine 07/04/25 documented as of this encounter
--- OUTSIDE RECORDS SUMMARY | 2025-07-11 04:27 | XMS_ITS | Encounter Summary ---
Author Organization [employer] ([place], [place], [place], [place], [place]) Address [address] [place] [address] Care Team Providers Care Engineering Document Control Clerk Name Role Phone Robert Batista MD Primary Care Provider [phone] Encounter Details Date Type Department Care Team (Late st Contact Info) Description 01/05/2021 Transcribed Document [facility] [place] [facility] [address] ProviderMacrina MD [address] [place] [address] Social History Tobacco Use Types Packs/Day Years [...] 1012. 01/02/21: POD#6 Intubated and sedated on [id number]/hr and Precedex .6mcg/kg/min. He is also on [...] At risk for sleep apnea / IMO 68565044 / Confirmed Colorectal surgery / SNOMED CT 0712500794 / Confirmed Aortic valve stenosis / SNOMED CT 150119268 / Confirmed HTN - Hypertension / SNOMED CT 6617278243 / Confirmed, Active Problems (13) Aortic stenosis, [...] Non-distended, Normal bowel sounds. Integumentary: Warm, Dry, Ellinger. Neurologic: The pt is able to move [...] Pre-Op Diagnosis, Medical. Electronically signed by [facility] Conversion After School Counselor Cerner at 11/10/2022 9:08 AM CDT documented in this encounter Plan of Treatment Not on file documented as of this encounter Visit Diagnoses Not on filedocumented in this encounter Care Teams Engineering Document Control Clerk Relationship Specialty Start Date End Date Robert Batista MD [address] [place], [place] [address] PCP - General Family Medicine 07/04/25 documented as of this encounter
--- OUTSIDE RECORDS SUMMARY | 2025-07-11 04:27 | XMS_ITS | Encounter Summary ---
Author Organization [employer] ([place], [place], [place], [place], [place]) Address [address] [place] [address] Care Team Providers Care Religion Teacher Name Role Phone Robert Batista MD Primary Care Provider [phone] Encounter Details Date Type Department Care Team (Late st Contact Info) Description 12/28/2020 Transcribed Document [facility] [address] [place] [address] ProviderMacrina MD [address] [place] [address] Social History Tobacco Use Types [...] FRAN SABA PT - 12/28/2020 11:26 EDT Electronically signed by Elmer [facility] Conversion Fire Prevention Specialist Cerner at 11/10/2022 9:14 AM CDT documented in this encounter Plan of Treatment Not on file documented as of this encounter Visit Diagnoses Not on filedocumented in this encounter Care Teams Religion Teacher Relationship Specialty Start Date End Date Robert Batista MD [address] [place] [address] PCP - General Family Medicine 07/04/25 documented as of this encounter
--- OUTSIDE RECORDS SUMMARY | 2025-07-11 04:27 | XMS_ITS | Encounter Summary ---
Author Organization [employer] ([place], [place], [place], [place], [place]) Address [address] [place] [address] Care Team Providers Care Addressograph Operator Name Role Phone Robert Batista MD Primary Care Provider [phone] Encounter Details Date Type Department Care Team (Late st Contact Info) Description 12/28/2020 Transcribed Document [facility] [place] Family Medicine [address] [place] [address] ProviderMacrina MD [address] [place] [address] Social History Tobacco Use Types Packs/Day Years Used Date Smoking Tobacco: Never Assessed Sex and Gender Information Value Date Recorded Sex Assigned at Not on file Legal Sex Male 1:13 PM CDT Gender Identity Not on file Sexual Orientation Not on file documented as of this encounter Miscellaneous Notes * [employer]ner Conversion Note - Macrina ProviderMD - 12/28/2020 5:00 AM CDT Chart Check - Review Order Profile Entered On: 12/28/2020 4:29 EDT Performed On: 12/28/2020 5:00 EDT by Belem Lawson, RN Chart Check Powerplans Initiated/Discontinued as Appropriate : Yes All Active Orders Reviewed : Yes Belem Lawson, RN - 12/28/2020 4:28 EDT documented in this encounter Plan of Treatment Not on file documented as of this encounter Visit Diagnoses Not on filedocumented in this encounter Care Teams Addressograph Operator Relationship Specialty Start Date End Date Robert Batista MD [address] [place], [place] [phone] PCP - General Family Medicine 07/04/25 documented as of this encounter
--- OUTSIDE RECORDS SUMMARY | 2025-07-11 04:27 | XMS_ITS | Encounter Summary ---
Author Organization [employer] ([place], [place], [place], [place], [place]) Address [address] [place] [address] Care Team Providers Care Steam Brush Operator Name Role Phone Robert Batista MD Primary Care Provider [phone] Encounter Details Date Type Department Care Team (Late st Contact Info) Description 12/27/2020 Transcribed Document [facility] [facility] [place] [address] ProviderMacrina MD [address] [place], [place] [phone] Social History Tobacco Use Types Packs/Day Years [...] performed using a micropuncture technique. Ultimately, a 6-Ukrainian sheath was inserted into the right femoral artery. Two Perclose were deployed in a preclose fashion, and the sheath was then upsized to an 8-Ukrainian. Using a similar technique, a 6-Ukrainian sheath was inserted into the left femoral artery, and a 6-Ukrainian sheath was inserted into the left femoral vein. A 5-Ukrainian transvenous pacemaker was inserted through the venous sheath and was then advanced under fluoroscopic guidance to the right ventricular free wall. Pacing capture was confirmed. A 5-Ukrainian pigtail catheter was then advanced through the left femoral arterial sheath and was positioned in the right coronary cusp. Supravalvular aortography was then performed. The cold planar view was confirmed. The Amplatz Extra Stiff wire was then inserted through the 8-Ukrainian sheath into the arterial system. The 8-Ukrainian sheath was then subsequently removed. After sequential dilatation of the tissue tract, ultimately a 16-Ukrainian Vivas eSheath was inserted without difficulty. The patient was systemically heparinized and adequate ACT was obtained. Over the Extra Stiff Amplatz wire, a 6-Ukrainian AL1 diagnostic catheter was placed and was [...] to the intensive care unit for monitoring. /[id number] Cuauhtemoc Gresham MD HRM/AQ / HRM / MODL /[id number] CC: MD Steve Carrington MD Electronically signed by [facility], [facility] Conversion Senior Graduate Advisor Cerner at 11/10/2022 9:03 AM CDT documented in this encounter Plan of Treatment Not on file documented as of this encounter Visit Diagnoses Not on filedocumented in this encounter Care Teams Steam Brush Operator Relationship Specialty Start Date End Date Robert Batista MD [address] [place] [phone] PCP - General Family Medicine 07/04/25 documented as of this encounter
--- OUTSIDE RECORDS SUMMARY | 2025-07-11 04:27 | XMS_ITS | Encounter Summary ---
Author Organization [employer] ([place], [place], [place], [place], [place]) Address [address] [place] [address] Care Team Providers Care Beam House Inspector Name Role Phone Robert Batista MD Primary Care Provider [phone] Encounter Details Date Type Department Care Team (Late st Contact Info) Description 01/05/2021 Transcribed Document [facility] Cardiology [address] [place] [address] [place] [address] [place] [address] [address] [place] [address] Social History Tobacco Use Types Packs/Day Years Used Date Smoking Tobacco: Never Assessed Sex and Gender Information Value Date Recorded Sex Assigned at Not on file Legal Sex Male 1:13 PM CDT Gender Identity Not on file Sexual Orientation Not on file documented as of this encounter Miscellaneous Notes * Cerner Conversion Note - Arthur Gomez MD - 01/05/2021 11:28 AM EDT Patient: JOSE ADORNO Age: 80 years Sex: Male : 1940 Associated Diagnoses: None Author: ARTHUR GOMEZ MD-CAR Basic Information PCP: Robert Batista MD Primary Bench Inspector: Arthur Gomez MD Subjective Patient seen and [...] Medical Aortic valve stenosis / SNOMED CT 259565875 / Confirmed At risk for sleep apnea / IMO [id number] / Confirmed Colorectal surgery / SNOMED CT 9997321501 / Confirmed HTN - Hypertension / SNOMED CT 4288397380 / Confirmed, Active Problems (13) Aortic stenosis, [...] 09:00) 69 (JAN 05 03:00) 82 (JAN 04 20:00) Resp Rate H 34 (JAN 05 09:00) L 10 (JAN 05 01:00) H 43 (JAN 05 00:22) SBP H 142 (JAN 05 09:00) 97 (JAN 05 07:00) H 169 (JAN 04 20:00) DBP 65 (JAN 05 09:00) L 52 (JAN 05 07:00) 80 (JAN 04 20:00) MAP 94 (JAN 05 09:00) 72 (JAN [...] 24 Hours) Radiology Results (Last 48 hours) [id number] -- 12/27/2020 06:39 CR Chest 1 Vw [...] dependent pleural effusions. Small on theleft and [id number] on the right side. These are associated [...] s/p pericardiocentesis and surgical repair of LV [place]. PEA Arrest; CODE called 10 minutes to [...] on filedocumented in this encounter Care Teams Beam House Inspector Relationship Specialty Start Date End Date Robert Batista MD [address], [place] [address] PCP - General Family Medicine 07/04/25 documented as of this encounter
--- OUTSIDE RECORDS SUMMARY | 2025-07-11 04:27 | XMS_ITS | Encounter Summary ---
Author Organization [employer] ([place], [place], [place], [place], [place]) Address [address] [place] [address] Care Team Providers Care Ward Service Supervisor Name Role Phone Robert Batista MD Primary Care Provider [phone] Encounter Details Date Type Department Care Team (Late st Contact Info) Description 01/05/2021 Transcribed Document [facility] [place] Family Medicine [address] [place] [address] ProviderMacrina MD [address] [place] [address] Social History Tobacco Use [...] Performed On: 01/05/2021 12:01 EDT by ARNOLDO SMALL, PT Attempt to Treat Unable to Treat Due To : Patient Refusal Inability to Treat Comment : Pt refused PTx today but says he will mobilize tomorrow. Notification : RN aware. ARNOLDO SMALL, PT - 01/05/2021 12:01 EDT documented in this encounter Plan of Treatment Not on file documented as of this encounter Visit Diagnoses Not on filedocumented in this encounter Care Teams Ward Service Supervisor Relationship Specialty Start Date End Date Robert Batista MD [address], [place] [address] PCP - General Family Medicine 07/04/25 documented as of this encounter
--- OUTSIDE RECORDS SUMMARY | 2025-07-11 04:28 | XMS_ITS | Encounter Summary ---
Author Organization [employer] ([place], [place], [place], [place], [place]) Address [address] [place] [address] Care Team Providers Care Orthotic Assistant Name Role Phone Robert Batista MD Primary Care Provider [phone] Encounter Details Date Type Department Care Team (Late st Contact Info) Description 01/01/2021 Transcribed Document [facility] Radiology [address] [place] [address] Abby Rodrigues MD [address] [place] [address] Social History Tobacco Use Types Packs/Day Years [...] Basic Information PCP: Robert Batista MD Primary Mineral Engineer: Arthur Gomez MD Subjective Extubated yesterday but [...] 01 03:00) SpO2 L 91 (JAN 01 06:) L 89 (DEC 31 14:30) 100 (DEC [...] 24 Hours) Radiology Results (Last 48 hours) [id number] -- 12/27/2020 06:39 CR Chest 1 Vw [...] by [place] PA-C, Mynor (N), Kieran Lerma.I have personally viewed, interpreted [...] and Plan IMPRESSION: Aortic stenosis, severe 11/15/19 -[facility] no obstructive disease. BAV 09/19/19 - ECHO EF 40%. severe aortic stenosis peak P mean P.83 s/p TAVR 12/27/2020. Apical perforation/Acute tamponade s/p pericardiocentesis and surgical repair of LV [place]. PEA Arrest; CODE called 10 minutes to [...] on filedocumented in this encounter Care Teams Orthotic Assistant Relationship Specialty Start Date End Date Robert Batista MD [address] [place] [address] PCP - General Family Medicine 07/04/25 documented as of this encounter
--- OUTSIDE RECORDS SUMMARY | 2025-07-11 04:28 | XMS_ITS | Encounter Summary ---
Author Organization [employer] ([place], [place], [place], [place], [place]) Address [address] [place] [address] Care Team Providers Care Fermenter Wine Name Role Phone Robert Batista MD Primary Care Provider [phone] Encounter Details Date Type Department Care Team (Late st Contact Info) Description 01/01/2021 Transcribed Document [facility] [place] [address] [place] [address] ProviderMacrina MD [address] [place], [place] [address] Social History Tobacco Use Types Packs/Day Years Used Date Smoking Tobacco: Never Assessed Sex and Gender Information Value Date Recorded Sex Assigned at Not on file Legal Sex Male 1:13 PM CDT Gender Identity Not on file Sexual Orientation Not on file documented as of this encounter Miscellaneous Notes * Cerner Conversion Note - Macrina ProviderMD - 01/01/2021 3:00 AM CDT Nutrition [...] PPI, abx Drips: precedex, fentanyl GI: LBM 12/31, +BS, +NGT, +corpak (2nd portion of duodenum) [...] tolerated to goal at 50ml/hr + 1 [id number] daily (provides 1710kcal, 83g PRO). Goal: meet est needs 2. Monitor elytes and replace prn Goal: wnls 3. Obtain wt 2x weekly goal: avoid sig wt changes Risk: High Nutrition Care Level : High Tamy Wolff Dietitian - 01/01/2021 11:01 EDT Electronically signed by [facility] Conversion Creative Specialist Cerner at 11/10/2022 9:29 AM CDT documented in this encounter Plan of Treatment Not on file documented as of this encounter Visit Diagnoses Not on filedocumented in this encounter Care Teams Fermenter Wine Relationship Specialty Start Date End Date Robert Batista MD [address] [place], [place] [address] PCP - General Family Medicine 07/04/25 documented as of this encounter
--- OUTSIDE RECORDS SUMMARY | 2025-07-11 04:28 | XMS_ITS | Encounter Summary ---
Author Organization [employer] ([place], [place], [place], [place], [place]) Address [address] [place] [address] Care Team Providers Care Insurance Producer Name Role Phone Robert Batista MD Primary Care Provider [phone] Encounter Details Date Type Department Care Team (Late st Contact Info) Description 01/03/2021 Transcribed Document [facility] [place] [address] [place] [address] ProviderMacrina MD [address] [place], [place] [id number] Social History Tobacco Use Types Packs/Day Years Used Date Smoking Tobacco: Never Assessed Sex and Gender Information Value Date Recorded Sex Assigned at Not on file Legal Sex Male 1:13 PM CDT Gender Identity Not on file Sexual Orientation Not on file documented as of this encounter Miscellaneous Notes * Cerner Conversion Note - Macrina ProviderMD - 01/03/2021 9:08 AM CDT Therapy [...] on filedocumented in this encounter Care Teams Insurance Producer Relationship Specialty Start Date End Date Robert Batista MD [address] [place] [address] PCP - General Family Medicine 07/04/25 documented as of this encounter
--- OUTSIDE RECORDS SUMMARY | 2025-07-11 04:28 | XMS_ITS | Encounter Summary ---
Author Organization [employer] ([place], [place], [place], [place], [place]) Address [address] [place] [address] Care Team Providers Care Title Supervisor Name Role Phone Robert Batista MD Primary Care Provider [phone] Encounter Details Date Type Department Care Team (Late st Contact Info) Description 12/27/2020 Transcribed Document [facility] [place] Family Medicine [facility] [place] [address] ProviderMacrina MD [address] [place] [address] Social History Tobacco Use Types Packs/Day Years Used Date Smoking Tobacco: Never Assessed Sex and Gender Information Value Date Recorded Sex Assigned at Not on file Legal Sex Male 1:13 PM CDT Gender Identity Not on file Sexual Orientation Not on file documented as of this encounter Miscellaneous Notes * Cerner Conversion Note - Macrina ProviderMD - 12/27/2020 6:39 AM CDT Admission [...] - Support Person/Pt Rep Contact Information : [phone] Want Family/Rep/Phys Notified of Admit : No Emergency Contact #1 : michaela Adorno Emergency Contact #1 Emergency Contact #1 Relationship : Emergency Contact #2 : Michaela -home phone Emergency Contact #2 Emergency Contact #2 Relationship : Information Obtained From : Patient Primary Language : Polish Communication Barrier : None Matrix Inspector Needed : No Belem Lawson RN - 12/27/2020 19:14 EDT Fall Risk Scales ABCs Fall Injury Risk Identification : Age, Bones, Coagulation, Surgery ABC Fall Injury Risk : Moderate to high injury risk OLIVAREZ Hx Falls Immediate/Within 3 Months : No Olivarez Secondary Diagnosis : Yes OLIVAREZ Use of Ambulatory Aid : Bed rest/Nurse assist OLIVAREZ IV Therapy or IV Access : Yes Olivarez Gait/Transferring : Normal, bedrest, immobile Olivarez Mental Status : Oriented to own ability Olivarez Fall Risk Score : 35 OLIVAREZ Fall Scale Risk Level : 25-45 Medium Risk [place] Fall Interventions : Adequate lighting, Assistive devices [...] Source : Measured Height Entry Format : [place] Height, Feet : 0 ft(Converted to: 0 cm, 0 Inch) Height, Inches : 67.75 Inch(Converted to: 5 ft 8 Inch, 172.08 cm) Clinical Height : 172.09 cm Weight Source : Standing scale Weight Entry Format : [place] Clinical Dosing Weight : 65.14 kg Weight, Pounds : 143 lb Weight, Ounces : 5 oz Body Surface Area (BSA) : 1.77 m2 Body Mass Index : 22 kg/m2 [place] Body Weight : 67 kg Manny Spencer [...] Manny Spencer RN - 12/27/2020 22:10 EDT [place] Suicide Severity Rating Scale (C-SSRS) CSSRS Past [...] - 12/27/2020 22:10 EDT Electronically signed by Elmer [facility] Conversion Web Worker Cerner at 11/10/2022 9:24 AM CDT documented in this encounter Plan of Treatment Not on file documented as of this encounter Visit Diagnoses Not on filedocumented in this encounter Care Teams Title Supervisor Relationship Specialty Start Date End Date Robert Batista MD [address] [place], [place] [address] PCP - General Family Medicine 07/04/25 documented as of this encounter
--- OUTSIDE RECORDS SUMMARY | 2025-07-11 04:28 | XMS_ITS | Encounter Summary ---
Author Organization [employer] ([place], [place], [place], [place], [place]) Address [address] [place] [address] Care Team Providers Care Exchange Consultant Name Role Phone Robert Batista MD Primary Care Provider [phone] Encounter Details Date Type Department Care Team (Late st Contact Info) Description 12/30/2020 Transcribed Document [facility] [place] [facility] [place] [address] ProviderMacrina MD [address] [place], [place] [id number] Social History Tobacco Use Types Packs/Day Years Used Date Smoking Tobacco: Never Assessed Sex and Gender Information Value Date Recorded Sex Assigned at Not on file Legal Sex Male 1:13 PM CDT Gender Identity Not on file Sexual Orientation Not on file documented as of this encounter Miscellaneous Notes * Cerner Conversion Note - Macrina ProviderMD - 12/30/2020 9:00 AM CDT Therapy [...] PTx new orders be placed. Nurse Malinda ng (Comment: agreement. [Earnestine Connor Physical Therapist - 12/30/2020 9:21 EDT] ) Earnestine Connor, Physical Therapist - 12/30/2020 9:21 EDT Electronically signed by Elmer, [facility] Conversion Golf Club Weighter Cerner at 11/10/2022 9:05 AM CDT documented in this encounter Plan of Treatment Not on file documented as of this encounter Visit Diagnoses Not on filedocumented in this encounter Care Teams Exchange Consultant Relationship Specialty Start Date End Date Robert Batista MD [address] [place], [place] [address] PCP - General Family Medicine 07/04/25 documented as of this encounter
--- OUTSIDE RECORDS SUMMARY | 2025-07-11 04:28 | XMS_ITS | Encounter Summary ---
Author Organization [employer] ([place], [place], [place], [place], [place]) Address [address] [place] [address] Care Team Providers Care Forklift Wheel Loader Name Role Phone Robert Batista MD Primary Care Provider [phone] Encounter Details Date Type Department Care Team (Late st Contact Info) Description 01/03/2021 Transcribed Document [facility] [place] [address] [place] [address] ProviderMacrina MD [address] [place], [place] [address] Social History Tobacco Use Types Packs/Day Years [...] Eval and Treat Ordered By: ANANDA QUILES MD-ZURDO 01/03/2021 09:52 Physical Therapy Eval and Treat Ordered By: ANANDA QUILES MD-ZURDO 01/03/2021 15:53 PT Additional Treatment Ordered By: [...] : 12/27/2020 06:39 Assisted by, PT : internet technology manager/aide Personal Devices : Personal Devices No Devices [...] VALENCIA LEONARD, PT - 01/12/2021 13:19 EDT Back Panel Padder Goals Mobility/Bed Mobility LTG PT Grid Goal [...] 01/17/2021 EDT Goal Status : Intial Goal HORACIOADIEN, PT - 01/12/2021 13:19 EDT Treatment Note Subjective Comment : Pt seems depressed about his situation. He states, This wasn't supposed to happen. I was supposed to get the surgery and go home in a day or two. Now I have to go to rehab . Discussed getting inpatient rehab at [facility] to help him be more functional [...] said, All over for location of pain. HORACIO VALENCIA, PT - 01/12/2021 13:19 EDT Image 1 [...] on filedocumented in this encounter Care Teams Forklift Wheel Loader Relationship Specialty Start Date End Date Robert Batista MD [address] [place] [address] PCP - General Family Medicine 07/04/25 documented as of this encounter
--- OUTSIDE RECORDS SUMMARY | 2025-07-11 04:28 | XMS_ITS | Encounter Summary ---
Author Organization [employer] ([place], [place], [place], [place], [place]) Address [address] [place] [address] Care Team Providers Care Prepared Foods Production Team Member Name Role Phone Robert Batista MD Primary Care Provider Encounter Details Date Type Department Care Team (Late st Contact Info) Description 01/03/2021 Transcribed Document [facility] [place] [facility] [place] [address] ProviderMacrina MD [address] [place] [address] Social History Tobacco Use Types [...] Extremity Dominance : Left ARIANE PIERCE, PT - 01/03/2021 15:39 EDT Right Upper Extremity Detailed ROM Grid Right Shoulder Flexion Range Active Assist : 90 ARIANE PIERCE, PT - 01/03/2021 15:39 EDT Left Upper Extremity Detailed ROM Grid Left Shoulder Flexion Range Active Assist : 45 ARIANE PIERCE., PT - 01/03/2021 15:39 EDT Right Upper [...] 2+/poor Forearm Supination 0-85 : 2+/poor ARIANE PIERCE, PT - 01/03/2021 15:39 EDT Lower Extremity [...] Follows Basic Command Assessment : Yes ARIANE PIERCE PT - 01/03/2021 15:39 EDT Edu Topics [...] ARIANE PIERCE, PT - 01/03/2021 15:39 EDT Usp Goals Mobility/Bed Mobility LTG PT Grid Goal [...] Weak Additional Objective Information : He did A/[id number] with UE's and LE's. He did SAQ's [...] ARIANE PIERCE, PT - 01/03/2021 15:[address] [facility] PT Charges PT Eval Moderate Complexity : 1 ARIANE PIERCE, PT - 01/03/2021 15:39 EDT Electronically signed by Elmer, [facility] Conversion Master Barber Cerner at 11/10/2022 9:05 AM CDT documented in this encounter Plan of Treatment Not on file documented as of this encounter Visit Diagnoses Not on filedocumented in this encounter Care Teams Prepared Foods Production Team Member Relationship Specialty Start Date End Date Robert Batista MD [address] [place], [place] [address] PCP - General Family Medicine 07/04/25 documented as of this encounter
--- OUTSIDE RECORDS SUMMARY | 2025-07-11 04:28 | XMS_ITS | Encounter Summary ---
Author Organization [employer] ([place], [place], [place], [place], [place]) Address [address] [place] [address] Care Team Providers Care Small Piece Cutter Name Role Phone Robert Batista MD Primary Care Provider [phone] Encounter Details Date Type Department Care Team (Late st Contact Info) Description 01/03/2021 Transcribed Document [facility] [place] [facility] [place] [address] ProviderMacrina MD [address] [place], [place] [address] Social History Tobacco Use Types Packs/Day Years Used Date Smoking Tobacco: Never Assessed Sex and Gender Information Value Date Recorded Sex Assigned at Not on file Legal Sex Male 1:13 PM CDT Gender Identity Not on file Sexual Orientation Not on file documented as of this encounter Miscellaneous Notes * Cerner Conversion Note - Macrina Cordova MD - 01/03/2021 3:00 PM CDT On Going Discharge Planning Entered On: 01/03/2021 15:03 EDT Performed On: 01/03/2021 15:00 EDT by SOPHY RM Rn-Precinct CaptainRecruitment Advertising Manager Progress Note Discharge Arrangements : Patient [...] Meeting Medical Necessity : Yes SOPHY RM Rn-Precinct Captain - 01/03/2021 15:00 EDT Narrative Progress Note [...] trach/peg; DCP TBD pending progress. SOPHY RM Rn-Precinct Captain - 01/02/21 14:55:12 HD#5; ELOS 3; LRR; BOOST 6; POD #5 - Elective TAVR/L Ventrial Tear/Cardiac Tamponode; extubated on 12/31 required reintubation today fi02 60/peep 8; Precedex/Fent gtt; Corpak/TF; IV Zosyn; CT draining; T=100; DCP TBD pending progress; will need therapy evals when appropriate. SOPHY RM, Rn-Precinct Captain - 01/01/21 14:47:57 HD#4; ELOS 3; LRR; POD#4 - Electiv TAVR; L Ventrical Tear; intubated fi02 50; Cardene gtt; Corpak to be placed and TF initiated; SBT today; following commands; Head MRI ordered; possible extubation post MRI; no movement noted on R side; will need PT/OT evaluations when extubated; DCP pending progress - likely rehab. SOPHY RM Rn-Precinct Captain - 12/31/20 14:58:43 DCP TBD - pending progress; OP Cardiac Rehab referral placed thru [facility]. SOPHY RM, Rn-Precinct Captain - 12/28/20 12:42:03 SOPHY RM Rn-Precinct Captain - 01/03/2021 15:00 EDT Electronically signed by Elmer [facility] Conversion Senior Trainer Cerner at 11/10/2022 9:15 AM CDT documented in this encounter Plan of Treatment Not on file documented as of this encounter Visit Diagnoses Not on filedocumented in this encounter Care Teams Small Piece Cutter Relationship Specialty Start Date End Date Robert Batista MD [address] [place] [place] [address] PCP - General Family Medicine 07/04/25 documented as of this encounter
--- OUTSIDE RECORDS SUMMARY | 2025-07-11 04:28 | XMS_ITS | Encounter Summary ---
Author Organization [employer] ([place], [place], [place], [place], [place]) Address [address] [place] [address] Care Team Providers Care Recorder Of Deeds Name Role Phone Robert Batista MD Primary Care Provider [phone] Encounter Details Date Type Department Care Team (Late st Contact Info) Description 01/03/2021 Transcribed Document [facility] [place] [address] [place] [address] ProviderMacrina MD [address] [place] [address] Social History Tobacco Use Types Packs/Day Years Used Date Smoking Tobacco: Never Assessed Sex and Gender Information Value Date Recorded Sex Assigned at Not on file Legal Sex Male 1:13 PM CDT Gender Identity Not on file Sexual Orientation Not on file documented as of this encounter Miscellaneous Notes * Cerner Conversion Note - Macrina ProviderMD - 01/03/2021 5:00 PM CDT Chart [...] on filedocumented in this encounter Care Teams Recorder Of Deeds Relationship Specialty Start Date End Date Robert Batista MD [address] [place], [place] [address] PCP - General Family Medicine 07/04/25 documented as of this encounter
--- OUTSIDE RECORDS SUMMARY | 2025-07-11 04:28 | XMS_ITS | Encounter Summary ---
Author Organization [employer] ([place], [place], [place], [place], [place]) Address [address] [place] [address] Care Team Providers Care Level Vial Inside Grinder Name Role Phone Robert Batista MD Primary Care Provider [phone] Encounter Details Date Type Department Care Team (Late st Contact Info) Description 12/30/2020 Transcribed Document [facility] [place] [facility] [place] [address] ProviderMacrina MD [address] [place] [address] Social History Tobacco Use Types Packs/Day Years Used Date Smoking Tobacco: Never Assessed Sex and Gender Information Value Date Recorded Sex Assigned at Not on file Legal Sex Male 1:13 PM CDT Gender Identity Not on file Sexual Orientation Not on file documented as of this encounter Miscellaneous Notes * Cerner Conversion Note - Macrina ProviderMD - 12/30/2020 2:00 AM CDT Intake Assessor Details Entered On: 12/30/2020 0:32 EDT Performed [...] - 12/30/2020 0:32 EDT Electronically signed by Elmer [facility] Conversion Long Goods Drier Cerner at 11/10/2022 9:09 AM CDT documented in this encounter Plan of Treatment Not on file documented as of this encounter Visit Diagnoses Not on filedocumented in this encounter Care Teams Level Vial Inside Grinder Relationship Specialty Start Date End Date Robert Batista MD [address], [place] [address] PCP - General Family Medicine 07/04/25 documented as of this encounter
--- OUTSIDE RECORDS SUMMARY | 2025-07-11 04:28 | XMS_ITS | Encounter Summary ---
Author Organization [employer] ([place], [place], [place], [place], [place]) Address [address] [place] [address] Care Team Providers Care Crown Assembly Machine Operator Name Role Phone Robert Batista MD Primary Care Provider [phone] Encounter Details Date Type Department Care Team (Late st Contact Info) Description 12/28/2020 Transcribed Document [facility] Cardiology [address] [place] [address] Enrique Valle MD [address] [place] [address] [address] [place] [address] Social History Tobacco Use Types Packs/Day Years [...] Basic Information PCP: Robert Batista MD Primary Shipmaster: Arthur Gomez MD Subjective mechanical vent Health [...] 23.8 \ Radiology Results (Last 48 hours) [id number] -- 12/27/2020 06:39 CR Chest 1 Vw [...] and dictated by Dr. Brayan Pratt.Transcribed by Myonr Mullins ([place]).I have personally viewed, interpreted and [...] s/p pericardiocentesis and surgical repain of LV [place]. PEA Arrest; CODE called 10 minutes to [...] on filedocumented in this encounter Care Teams Crown Assembly Machine Operator Relationship Specialty Start Date End Date Robert Batista MD [address] [place], [place] [address] PCP - General Family Medicine 07/04/25 documented as of this encounter
--- OUTSIDE RECORDS SUMMARY | 2025-07-11 04:28 | XMS_ITS | Encounter Summary ---
Author Organization [email or web address] ([place], [place], [place], [place], [place]) Address [address] [place] [address] Care Team Providers Care Data Warehouse Specialist Name Role Phone Robert Batista MD Primary Care Provider [phone] Encounter Details Date Type Department Care Team (Late st Contact Info) Description 01/11/2021 Transcribed Document [facility] [place] [address] [place] [address] ProviderMacrina MD [address] [place] [address] Social History Tobacco Use Types Packs/Day Years Used Date Smoking Tobacco: Never Assessed Sex and Gender Information Value Date Recorded Sex Assigned at Not on file Legal Sex Male 1:13 PM CDT Gender Identity Not on file Sexual Orientation Not on file documented as of this encounter Miscellaneous Notes * Cerner Conversion Note - Macrina ProviderMD - 01/11/2021 5:00 AM CDT Chart [...] on filedocumented in this encounter Care Teams Data Warehouse Specialist Relationship Specialty Start Date End Date Robert Batista MD [address] [place] [address] PCP - General Family Medicine 07/04/25 documented as of this encounter
--- OUTSIDE RECORDS SUMMARY | 2025-07-11 04:28 | XMS_ITS | Encounter Summary ---
Author Organization [employer] ([place], [place], [place], [place], [place]) Address [address] [place] [address] Care Team Providers Care Graduation Coach Name Role Phone Robert Batista MD Primary Care Provider [phone] Encounter Details Date Type Department Care Team (Late st Contact Info) Description 01/03/2021 Transcribed Document [facility] [place] [address] [place] [address] ProviderMacrina MD [address] [place] [address] Social History Tobacco Use Types [...] : pt sedated NIH Sensory (8) : Idww-sv-oesqcpft sensory loss (Comment: pt intubated and sedated [Li Abraham RN-PATIENT CARE BEDSIDE NON-EXEMPT - 01/03/2021 15:05 EDT] ) NIH Best Language (9) : Jnyo-kw-qkogypdq aphasia (Comment: pt intubated and sedated; mouths [...] on filedocumented in this encounter Care Teams Graduation Coach Relationship Specialty Start Date End Date Robert Batista MD [address] [place], [place] [address] PCP - General Family Medicine 07/04/25 documented as of this encounter
--- OUTSIDE RECORDS SUMMARY | 2025-07-11 04:28 | XMS_ITS | Encounter Summary ---
Author Organization [employer] ([place], [place], [place], [place], [place]) Address [address] [place] [address] Care Team Providers Care Talent Development Consultant Name Role Phone Robert Batista MD Primary Care Provider [phone] Encounter Details Date Type Department Care Team (Late st Contact Info) Description 01/01/2021 Transcribed Document [facility] [place] [address] ProviderMacrina MD [address] [place], [place] [id number] Social History Tobacco Use Types Packs/Day Years Used Date Smoking Tobacco: Never Assessed Sex and Gender Information Value Date Recorded Sex Assigned at Not on file Legal Sex Male 1:13 PM CDT Gender Identity Not on file Sexual Orientation Not on file documented as of this encounter Miscellaneous Notes * Cerner Conversion Note - Macrina Cordova MD - 01/01/2021 2:45 PM CDT On Going Discharge Planning Entered On: 01/01/2021 14:47 EDT Performed On: 01/01/2021 14:45 EDT by SOPHY RM Rn-Cigarette RollerAssayer Progress Note Discharge Arrangements : Patient Post-Acute [...] : Clinical Condition of Patient SOPHY RM Rn-Cigarette Roller - 01/01/2021 14:45 EDT Narrative Progress Note [...] pending progress - likely rehab. SOPHY RM Rn-Cigarette Roller - 12/31/20 14:58:43 DCP TBD - pending progress; OP Cardiac Rehab referral placed thru [facility]. SOPHY RM Rn-Cigarette Roller - 12/28/20 12:42:03 SOPHY RM Rn-Cigarette Roller - 01/01/2021 14:45 EDT documented in this encounter Plan of Treatment Not on file documented as of this encounter Visit Diagnoses Not on filedocumented in this encounter Care Teams Talent Development Consultant Relationship Specialty Start Date End Date Robert Batista MD [address] [place], [place] [address] PCP - General Family Medicine 07/04/25 documented as of this encounter
--- OUTSIDE RECORDS SUMMARY | 2025-07-11 04:28 | XMS_ITS | Encounter Summary ---
Author Organization [employer] ([place], [place], [place], [place], [place]) Address [address] [place] [address] Care Team Providers Care Painter Barrel Name Role Phone Robert Batista MD Primary Care Provider [phone] Encounter Details Date Type Department Care Team (Late st Contact Info) Description 01/01/2021 Transcribed Document [facility] [place] [facility] [place] [address] ProviderMacrina MD [address] [place] [address] Social History Tobacco Use Types Packs/Day Years Used Date Smoking Tobacco: Never Assessed Sex and Gender Information Value Date Recorded Sex Assigned at Not on file Legal Sex Male 1:13 PM CDT Gender Identity Not on file Sexual Orientation Not on file documented as of this encounter Miscellaneous Notes * Cerner Conversion Note - Macrina ProviderMD - 01/01/2021 2:00 AM CDT Pasteurizing Machine Operator Details Entered On: 01/01/2021 6:36 EDT Performed [...] on filedocumented in this encounter Care Teams Painter Barrel Relationship Specialty Start Date End Date Robert Batista MD [address] [place] [address] [place] [id number] PCP - General Family Medicine 07/04/25 documented as of this encounter
--- OUTSIDE RECORDS SUMMARY | 2025-07-11 04:28 | XMS_ITS | Encounter Summary ---
Author Organization [employer] ([place], [place], [place], [place], [place]) Address [address] [place] [address] Care Team Providers Care Director Of Blood Name Role Phone Robert Batista MD Primary Care Provider [phone] Encounter Details Date Type Department Care Team (Late st Contact Info) Description 12/27/2020 Transcribed Document [facility] Cardiology [address] [place] [phone] [place] [address] [place] [address] [address] [place] [address] Social History Tobacco Use Types Packs/Day Years Used Date Smoking Tobacco: Never Assessed Sex and Gender Information Value Date Recorded Sex Assigned at Not on file Legal Sex Male 1:13 PM CDT Gender Identity Not on file Sexual Orientation Not on file documented as of this encounter Miscellaneous Notes * Cerner Conversion Note - Arthur Gomez MD - 12/27/2020 9:26 AM EDT Patient: JOSE ADORNO Age: 80 years Sex: Male : 1940 Associated Diagnoses: None Author: ARTHUR GOMEZ MD-CAR Basic Information PCP: Robert Batista MD Primary Director Web: Arthur Gomez MD Chief Complaint Severe Aortic Stenosis [...] All Problems Arthritis of right knee / 2114512825 / Confirmed At risk for sleep apnea / 07099363 / Confirmed Chronic anxiety / 720014097 / Confirmed Back pain, chronic / 889104483 / Confirmed Colorectal surgery / 5087195112 / Confirmed Disorder of prostate / 44766027 / Confirmed GERD - Gastro-esophageal reflux disease / 2257255513 / Confirmed H/O peripheral neuropathy / 723165928 / Confirmed Hyperlipidemia / 10127366 / Confirmed Hypertension / 81333222 / Confirmed Aortic stenosis, severe / 8652550959 / Confirmed Resolved: Cancer of colon / 8886586555 Histories No education data available. Social & Psychosocial Habits Alcohol 11/15/2019 Alcohol Use History, Social Habits No Substance Abuse 12/25/2020 Recreational Drug Use History No Recreational Drug Use Last 12 Months No Tobacco 11/15/2019 Smoking Status Never (less than 100 in l Past Medical History: Active Aortic valve stenosis (182839810) HTN - Hypertension (8994033642) Family History: Father Heart disease Mother Heart [...] (DEC 27 06:00) H 174 (DEC 27 06:) DBP 81 (DEC 27 06:00) 81 (DEC 27 06:00) 81 (DEC 27 06:00) SpO2 98 (DEC 27:00) 98 (DEC 27 06:00) 98 (DEC 27 06:) General: Alert and oriented, No acute distress. [...] of motion, Normal strength. Integumentary: Warm, Dry, Smoot. Neurologic: Alert, Oriented. Psychiatric: Cooperative, Appropriate mood & affect. Review / Management Radiology Results (Last 48 hours) [id number] -- 12/27/2020 06:39 CR Chest 2 Vws [...] and Plan IMPRESSION: Aortic stenosis, severe 11/15/19 [facility] no obstructive disease. BAV 09/19/19 [...] filedocumented in this encounter Care Teams Director Of Blood Relationship Specialty Start Date End Date Robert Batista MD [address] [place] [address] PCP - General Family Medicine 07/04/25 documented as of this encounter
--- OUTSIDE RECORDS SUMMARY | 2025-07-11 04:28 | XMS_ITS | Encounter Summary ---
Author Organization [employer] ([place], [place], [place], [place], [place]) Address [address] [place] [address] Care Team Providers Care Production Repairer Name Role Phone Robert Batista MD Primary Care Provider [phone] Encounter Details Date Type Department Care Team (Late st Contact Info) Description 01/11/2021 Transcribed Document [facility] Cardiology [address] [place] [phone] [place] [address] [place] [address] [address] [place] [address] Social History Tobacco Use Types Packs/Day Years Used Date Smoking Tobacco: Never Assessed Sex and Gender Information Value Date Recorded Sex Assigned at Not on file Legal Sex Male 1:13 PM CDT Gender Identity Not on file Sexual Orientation Not on file documented as of this encounter Miscellaneous Notes * Cerner Conversion Note - Arthur Gomez MD - 01/11/2021 8:26 AM EDT Patient: JOSE ADORNO Age: 80 years Sex: Male : 1940 Associated Diagnoses: None Author: ARTHUR GOMEZ MD-CAR Basic Information PCP: Robert Batista MD Primary Air Analysis Engineering Technician: Arthur Gomez MD Subjective Sitting up in chair [...] H 36 (JAN 10 18:00) SBP 134 (JAN 11 06:00) 92 (JAN 10 22:00) H 174 [...] 28.3 \ Radiology Results (Last 48 hours) [id number] -- 12/27/2020 06:39 CR Chest 1 Vw [...] s/p pericardiocentesis and surgical repair of LV [place]. PEA Arrest; CODE called 10 minutes to [...] on filedocumented in this encounter Care Teams Production Repairer Relationship Specialty Start Date End Date Robert Batista MD [address] [place] [address] PCP - General Family Medicine 07/04/25 documented as of this encounter
--- OUTSIDE RECORDS SUMMARY | 2025-07-11 04:28 | XMS_ITS | Encounter Summary ---
Author Organization [employer] ([place], [place], [place], [place], [place]) Address [address] [place] [address] Care Team Providers Care Consulting Services Manager Name Role Phone Robert Batista MD Primary Care Provider [phone] Encounter Details Date Type Department Care Team (Late st Contact Info) Description 01/01/2021 Transcribed Document [facility] [place] [facility] [place] [address] ProviderMacrina MD [address] [place] [address] Social History Tobacco Use Types Packs/Day Years Used Date Smoking Tobacco: Never Assessed Sex and Gender Information Value Date Recorded Sex Assigned at Not on file Legal Sex Male 1:13 PM CDT Gender Identity Not on file Sexual Orientation Not on file documented as of this encounter Miscellaneous Notes * Cerner Conversion Note - Macrina ProviderMD - 01/01/2021 9:49 AM CDT Consult Phone Call Documentation Entered On: 01/01/2021 15:01 EDT Performed On: 01/01/2021 9:49 EDT by Sue Hazel Absorption Plant Operator [facility] Coord Phone Call for Consults Consult Phone Call/Page Attempt : First call Consult Reason : CVA Consult, Additional Information : Sue Hahn, Absorption Plant Operator [facility] Coord - 01/01/2021 15:00 EDT Electronically signed by [facility] Conversion Underground Distribution Engineer Cerner at 11/10/2022 9:30 AM CDT documented in this encounter Plan of Treatment Not on file documented as of this encounter Visit Diagnoses Not on filedocumented in this encounter Care Teams Consulting Services Manager Relationship Specialty Start Date End Date Robert Batista MD [address], [place] [phone] PCP - General Family Medicine 07/04/25 documented as of this encounter
--- OUTSIDE RECORDS SUMMARY | 2025-07-11 04:28 | XMS_ITS | Encounter Summary ---
Author Organization [employer] ([place], [place], [place], [place], [place]) Address [address] [place] [address] Care Team Providers Care Fishing Lure Assembler Name Role Phone Robert Batista MD Primary Care Provider [phone] Encounter Details Date Type Department Care Team (Late st Contact Info) Description 01/03/2021 Transcribed Document [facility] [place] [address] [place] [address] ProviderMacrina MD [address] [place] [address] Social History Tobacco Use Types Packs/Day Years Used Date Smoking Tobacco: Never Assessed Sex and Gender Information Value Date Recorded Sex Assigned at Not on file Legal Sex Male 1:13 PM CDT Gender Identity Not on file Sexual Orientation Not on file documented as of this encounter Miscellaneous Notes * Cerner Conversion Note - Macrina ProviderMD - 01/03/2021 9:56 PM CDT Spiritual [...] on filedocumented in this encounter Care Teams Fishing Lure Assembler Relationship Specialty Start Date End Date Robert Batista MD [address] [place] [phone] PCP - General Family Medicine 07/04/25 documented as of this encounter
--- OUTSIDE RECORDS SUMMARY | 2025-07-11 04:28 | XMS_ITS | Encounter Summary ---
Author Organization [employer] ([place], [place], [place], [place], [place]) Address [address] [place] [address] Care Team Providers Care Resin Coater Name Role Phone Robert Batista MD Primary Care Provider [phone] Encounter Details Date Type Department Care Team (Late st Contact Info) Description 01/01/2021 Transcribed Document [facility] [place] Family Medicine [address] [place] [address] ProviderMacrina MD [address] [place] [address] Social History Tobacco Use Types [...] Performed On: 01/01/2021 5:00 EDT by PEEWEE SMITH, RN Height and Weight, Routine Routine Weight Source : Bed scale Routine Weight Entry Format : Metric Routine Weight, Kilograms : 74.2 kg(Converted to: 163 lb 9 oz) Routine Weight Calculation : 74.2 kg Height Source : Measured Height Entry Format : [place] Height, Feet : 0 ft Height, Inches : 67.75 Inch Clinical Height : 172.09 cm Body Surface Area (BSA), Routine : 1.87 m2 Body Mass Index (BMI), Routine : 25.05 kg/m2 PEEWEE SMITH RN - 01/01/2021 5:52 EDT Electronically signed by [facility] Conversion Experimental Preflight Mechanic Cerner at 11/10/2022 9:15 AM CDT documented in this encounter Plan of Treatment Not on file documented as of this encounter Visit Diagnoses Not on filedocumented in this encounter Care Teams Resin Coater Relationship Specialty Start Date End Date Robert Batista MD [address] [place], [place] [phone] PCP - General Family Medicine 07/04/25 documented as of this encounter
--- OUTSIDE RECORDS SUMMARY | 2025-07-11 04:28 | XMS_ITS | Encounter Summary ---
Author Organization [employer] ([place], [place], [place], [place], [place]) Address [address] [place] [address] Care Team Providers Care Tool Grinder Operator Name Role Phone Robert Batista MD Primary Care Provider [phone] Encounter Details Date Type Department Care Team (Late st Contact Info) Description 12/28/2020 Transcribed Document [facility] [place] Medicine [address] [place] [address] ProviderMacrina MD [address] [place] [address] Social History Tobacco Use Types Packs/Day Years Used Date Smoking Tobacco: Never Assessed Sex and Gender Information Value Date Recorded Sex Assigned at Not on file Legal Sex Male 1:13 PM CDT Gender Identity Not on file Sexual Orientation Not on file documented as of this encounter Miscellaneous Notes * Cerner Conversion Note - Macrina ProviderMD - 12/28/2020 5:00 PM CDT Chart [...] on filedocumented in this encounter Care Teams Tool Grinder Operator Relationship Specialty Start Date End Date Batista, Robert [address] [place] [phone] PCP - General Family Medicine 07/04/25 documented as of this encounter
--- OUTSIDE RECORDS SUMMARY | 2025-07-11 04:28 | XMS_ITS | Encounter Summary ---
Author Organization [employer] ([place], [place], [place], [place], [place]) Address [address] [place] [address] Care Team Providers Care J2Ee Software Engineer Name Role Phone Robert Batista MD Primary Care Provider [phone] Encounter Details Date Type Department Care Team (Late st Contact Info) Description 12/28/2020 Transcribed Document [facility] [place] [address] [place] [address] ProviderMacrina MD [address] [place] [address] Social History Tobacco Use Types Packs/Day Years Used Date Smoking Tobacco: Never Assessed Sex and Gender Information Value Date Recorded Sex Assigned at Not on file Legal Sex Male 1:13 PM CDT Gender Identity Not on file Sexual Orientation Not on file documented as of this encounter Miscellaneous Notes * Cerner Conversion Note - Macrina ProviderMD - 12/28/2020 5:00 AM CDT Height [...] Source : Measured Height Entry Format : [place] Height, Feet : 0 ft Height, Inches : 67.75 Inch Clinical Height : 172.09 cm Body Surface Area (BSA), Routine : 1.9 m2 Body Mass Index (BMI), Routine : 26.1 kg/m2 Belem Lawson RN - 12/28/2020 5:23 EDT Electronically signed by [facility] Conversion Instrumentation Technologist Cerner at 11/10/2022 9:23 AM CDT documented in this encounter Plan of Treatment Not on file documented as of this encounter Visit Diagnoses Not on filedocumented in this encounter Care Teams J2Ee Software Engineer Relationship Specialty Start Date End Date Robert Batista MD [address] [place], [place] [phone] PCP - General Family Medicine 07/04/25 documented as of this encounter
--- OUTSIDE RECORDS SUMMARY | 2025-07-11 04:28 | XMS_ITS | Encounter Summary ---
Author Organization [employer] ([place], [place], [place], [place], [place]) Address [address] [place] [address] Care Team Providers Care Biofuels Operations Manager Name Role Phone Robert Batista MD Primary Care Provider [phone] Encounter Details Date Type Department Care Team (Late st Contact Info) Description 01/17/2021 Transcribed Document [facility] [place] [address] [place] [address] ProviderMacrina MD [address] [place], [place] [id number] Social History Tobacco Use Types Packs/Day Years Used Date Smoking Tobacco: Never Assessed Sex and Gender Information Value Date Recorded Sex Assigned at Not on file Legal Sex Male 1:13 PM CDT Gender Identity Not on file Sexual Orientation Not on file documented as of this encounter Miscellaneous Notes * Cerner Conversion Note - Macrina Cordova MD - 01/17/2021 11:12 AM CDT [facility] Endo IntraOp Summary Primary Physician: PEYTON BEATTY MD Finalized Date/Time: 01/17/21 11:36:17 Pt. Name: JOSE ADORNO /Sex: 1940 Male Med Rec #: [id number] Physician: DANYELLE WALTERS MD-CAR Financial #: [id number] Pt. Type: I Room/Bed: [facility]/ Admit/Disch: 12/27/20 06:39:00 - Institution: [facility] Endo - Case Attendance Entry 1 Entry 2 Entry 3 Case Attendee PEYTON BEATTY MD Johnson, Kaitlyn G, STEFANO JOSE, Drawing Machine Operator Role Performed Surgeon/Proceduralist, Answering Service Agent, First Scrub, First First Time In 01/17/21 11:00:00 01/17/21 11:00:00 01/17/21 11:00:00 Time Out 01/17/21 11:24:00 01/17/21 11:24:00 01/17/21 11:24:00 Procedure EGD w Peg Tube Placement EGD w Peg Tube Placement EGD w Peg Tube Placement Other Attendee Superficial Wound Closed By: Last Modified By: Jerri Argueta, Jerri Narvaez, Jerri Narvaez RN 01/17/21 11:33:50 01/17/21 11:33:50 01/17/21 11:33:50 Entry 4 Entry 5 Entry 6 Case Attendee JOSE VIGIL, ZHANNA Kimble, COMPOSITION MIXER Paola Beltran, SHYAM Student Nurse Slot Machine Mechanic Role Performed Student COMPOSITION MIXER/Nurse Slot Machine Mechanic Answering Service Agent, Second Time In 01/17/21 11:00:00 01/17/21 11:00:00 [...] Entry 9 Case Attendee Manoj Sunshine I, RN Claudia West CORNEA, MIHAELA, MD-ANS Environmental Compliance Specialist Role Performed Answering Service Agent, Third Scrub, Second Anesthesiologist of Record Time In 01/17/21 11:00:00 01/17/21 11:00:00 01/17/21 11:00:00 Time Out 01/17/21 11:24:00 01/17/21 11:24:00 01/17/21 11:24:00 Procedure EGD w Peg Tube Placement EGD w Peg Tube Placement EGD w Peg Tube Placement Other Attendee Superficial Wound Closed By: Last Modified By: Jerri Argueta, RN Jerri Argueta RN Jerri Argueta RN 01/17/21 11:33:50 01/17/21 11:33:50 01/17/21 11:33:50 [facility] Endo - Case Attendance Audit 01/17/21 11:33:50 Malware Analyst: [id number] Modifier: [id number] <*> Procedure Esophagogastroduodenoscopy, EGD w Peg [...] EGD w Peg Tube Placement 01/17/21 11:33:45 Malware Analyst: [id number] Modifier: [id number] 1 <*> Procedure Esophagogastroduodenoscopy, EGD w Peg [...] EGD w Peg Tube Placement 01/17/21 11:32:06 Malware Analyst: [id number] Modifier: [id number] <+> 2 Case Attendee <+> 2 Role [...] Time In <+> 9 Procedure 01/17/21 11:32:05 Malware Analyst: [id number] Modifier: [id number] <+> Time In 1 <+> Time Out 1 <*> Procedure Esophagogastroduodenoscopy, EGD w Peg Tube Placement [facility] Endo - Case times Entry 1 Patient In Room Time 01/17/21 11:00:00 Out Room Time 01/17/21 11:24:00 Anesthesia Start Time 01/17/21 11:00:00 Stop Time 01/17/21 11:20:00 Surgery / Procedure Times Start Time 01/17/21 11:12:00 Stop Time 01/17/21 11:20:00 Last Modified By: Jerri Argueta RN 01/17/21 11:29:18 [facility] Endo - Delays Entry 1 Delay Reason Other Duration 0 Minute(s) Last Modified By: Jerri Argueta RN 01/17/21 11:32:11 [facility] Endo - Departure from OR Entry 1 Integumentary Assessment Integumentary WDL Assessment WDL Transfer/Handoff Transfer to PACU Phase I Post-op Transport Stretcher/Gurney Via Patient Transport Jerri Argueta RN, Accompanied by ZHANNA CASTILLO CRNA Last Modified By: Jerri Argueta RN 01/17/21 11:32:12 [facility] Endo - Endoscopy Details Entry 1 Abdomen Procedure Soft, Non-Tender Assessment Procedure Abdomen 01/17/21 11:01:00 Assessment D/T Radio Frequency Ablation Abdominal Pressure Last Modified By: Jerri Argueta RN 01/17/21 11:32:17 [facility] Endo - Fire Risk Assessment Entry 1 [...] Modified By: Jerri Argueta RN 01/17/21 11:32:32 [facility] Endo - General Case Foundry Patternmaker 1 Case Information OR Out of Department [facility] Case Level 1 Room Verified Yes Wound Class II - Clean-Contaminated Specialty General Anesthesia Type MAC ASA Class 4 Diagnosis Preop Diagnosis dysphagia Postop Same As Preop Yes Postop Diagnosis dysphagia Last Modified By: Jerri Argueta RN 01/17/21 11:32:54 [facility] Endo - Implant Log Entry 1 Type Implant (Synthetic) Implant Log Implant [id number] Identification Description Implant Quantity 1 Implant [id number] Identification Lot Number Implant Has an Yes Expiration Date Implant Expiration 04/19/22 Date Tissue Implant Last Modified By: Jerri Argueta RN 01/17/21 11:35:37 [facility] Endo - Intraoperative Assessment Entry 1 Valid History / Yes Physical in Chart Preoperative Yes Checklist Reviewed/Evaluated Patient is Latex No Sensitive Level of WDL Consciousness (WDL = Alert, Oriented to Person, Place, and Time) Last Modified By: Jerri Argueta RN 01/17/21 11:32:57 [facility] Endo - Intraoperative Equipment Entry 1 Equipment Intraop Monitoring Electrocardiogram Three lead placement (ECG) Electrode Placement Blood Pressure Arm, left upper Location Pulse Oximeter Hand, right Probe Site Antiembolic Devices Scopes Flexible Endoscopes Gastroscope Used Scope Serial e Number/Identificatio n Number Photo/Video Documentation Photo Yes Video No Last Modified By: Jerri Argueta RN 01/17/21 11:33:29 [facility] Endo - Patient Positioning Entry 1 Procedure [...] Modified By: Jerri Argueta RN 01/17/21 11:33:51 [facility] Endo - Patient Positioning Audit 01/17/21 11:33:51 Malware Analyst: [id number] Modifier: [id number] 1 <*> Procedure EGD w Peg Tube Placement [facility] Endo - Sign In Entry 1 Patient, Site, Yes Procedure Identified Surgical Consent Yes Confirmed Surgical Site N/A Marked by person performing procedure Airway Hypothermia Risk No Warming Measures No Taken Last Modified By: Jerri Argueta RN 01/17/21 11:33:42 [facility] Endo - Sign Out Entry 1 RN [...] Modified By: Jerri Argueta RN 01/17/21 11:36:12 [facility] Endo - Sign Out Audit 01/17/21 11:36:12 Malware Analyst: [id number] Modifier: [id number] <+> 1 Urinary Catheter Documented in IView [facility] Endo - Surgical Procedures Entry 1 Procedure EGD w Peg Tube Placement Primary Procedure Yes Primary Surgeon PEYTON BEATTY MD Start 01/17/21 11:12:00 Stop 01/17/21 11:20:00 Anesthesia Type MAC Specialty General Wound Class II - Clean-Contaminated Last Modified By: Jerri Argueta RN 01/17/21 11:33:59 [facility] Endo - Time Out Entry 1 Procedure [...] on filedocumented in this encounter Care Teams Biofuels Operations Manager Relationship Specialty Start Date End Date Robert Batista MD [address] [place] [address] PCP - General Family Medicine 07/04/25 documented as of this encounter
--- OUTSIDE RECORDS SUMMARY | 2025-07-11 04:28 | XMS_ITS | Encounter Summary ---
Author Organization [employer] ([place], [place], [place], [place], [place]) Address [address] [place] [address] Care Team Providers Care Rollway Worker Name Role Phone Robert Batista MD Primary Care Provider [phone] Encounter Details Date Type Department Care Team (Late st Contact Info) Description 01/11/2021 Transcribed Document [facility] [place] [facility] [place] [address] ProviderMacrina MD [address] [place] [id number] Social History Tobacco Use Types Packs/Day Years [...] 1012. 01/02/21: POD#6 Intubated and sedated on [id number]/hr and Precedex .6mcg/kg/min. He is also on [...] 2L/NC TF 50ml/hr Continue P.T. Transfer to [facility] Pt will need rehab when clinically ready 01/11/21 POD#15 O2 91% 2L/NC TF 50ml/hr Continue P.T. Awaiting transfer to [facility] Diagnosis Anxiety - Pre-Op Diagnosis, Medical. Cardiac [...] on filedocumented in this encounter Care Teams Rollway Worker Relationship Specialty Start Date End Date Robert Batista MD [address] [place], [place] [address] PCP - General Family Medicine 07/04/25 documented as of this encounter
--- OUTSIDE RECORDS SUMMARY | 2025-07-11 04:28 | XMS_ITS | Encounter Summary ---
Author Organization [employer] ([place], [place], [place], [place], [place]) Address [address] [place] [address] Care Team Providers Care Manager Pacu Name Role Phone Robert Batista MD Primary Care Provider [phone] Encounter Details Date Type Department Care Team (Late st Contact Info) Description 01/03/2021 Transcribed Document [facility] [place] [address] [place] [address] ProviderMacrina MD [address] [place], [place] [address] Social History Tobacco Use Types Packs/Day Years [...] and within reach RN/PCT Informed Comment : SHYAM urban'ed tx. Treatment End Time : 01/03/2021 13:46 [...] OCCUPATIONAL THERAPIST NON-EXEMPT - 01/03/2021 14:34 EDT Control Panel Operator Crude Unit Goals, OT Grooming LTG Grid Goal #1 [...] Pt provided with squeeze ball for B pig farmer strengthening. R UE positioned on pillow and [...] Pre-Intervention : 0 Lauren Newberry OCCUPATIONAL THERAPIST NON-EXEMPT - 01/03/2021 14:34 EDT Image 1 - [...] OT Eval Moderate Complexity : 1 Lauren Newberry, OCCUPATIONAL THERAPIST NON-EXEMPT - 01/03/2021 14:34 EDT Electronically signed by Elmer, [facility] Conversion Protection Chief Industrial Plant Cerner at 11/10/2022 9:14 AM CDT documented in this encounter Plan of Treatment Not on file documented as of this encounter Visit Diagnoses Not on filedocumented in this encounter Care Teams Manager Pacu Relationship Specialty Start Date End Date Robert Batista MD [address] [place], [place] [address] PCP - General Family Medicine 07/04/25 documented as of this encounter
--- OUTSIDE RECORDS SUMMARY | 2025-07-11 04:28 | XMS_ITS | Encounter Summary ---
Author Organization [employer] ([place], [place], [place], [place], [place]) Address [address] [place] [address] Care Team Providers Care Geothermal System Installer Name Role Phone Robert Batista MD Primary Care Provider [phone] Encounter Details Date Type Department Care Team (Late st Contact Info) Description 12/27/2020 Transcribed Document [facility] Pulm & Critical Care Medicine [address] [place] [address] [place] [address] [place] [address] [place] [address] [address] [place] [address] Social History Tobacco Use Types Packs/Day Years [...] Problems Aortic stenosis, severe / SNOMED CT 0496561545 / Confirmed Hypertension / SNOMED CT 71040520 / Confirmed Hyperlipidemia / SNOMED CT 65929037 / Confirmed HTN - Hypertension / SNOMED CT 8417918274 / Confirmed H/O peripheral neuropathy / SNOMED CT 062679674 / Confirmed feet tingle all the time GERD - Gastro-esophageal reflux disease / SNOMED CT 7157259397 / Confirmed Disorder of prostate / SNOMED CT 94185320 / Confirmed Colorectal surgery / SNOMED CT 4505257171 / Confirmed Back pain, chronic / SNOMED CT 191591931 / Confirmed Chronic anxiety / SNOMED CT 888532354 / Confirmed At risk for sleep apnea / IMO 21687314 / Confirmed Arthritis of right knee / SNOMED CT 0076362334 / Confirmed Aortic valve stenosis / SNOMED CT 728599709 / Confirmed Resolved: Cancer of colon / SNOMED CT 1821916819, Active Problems (13) Aortic stenosis, severe Aortic [...] 42.2 12/27/2020 12:11 pO2 Art POC 245.0 HI 12/27/2020 12:11 HCO3 Art POC 18.9 LOW 12/27/2020 12:11 tCO2 Art POC 20.0 LOW 12/27/2020 12:11 BE Art POC -8.0 LOW 12/27/2020 12:11 sO2 Art POC >99.9 HI 12/27/2020 12:11 ABG Num of Draw Attempts 12/27/2020 11:52 PaO2/FiO2 calculated 12/27/2020 11:52 Radiology Results (Last 48 hours) [id number] -- 12/27/2020 06:39 CR Chest 1 Vw [...] dictated by Dr. Breezy Snider.Transcribed by RT aNn (Sherron) (M).I have personally viewed, interpreted and [...] on filedocumented in this encounter Care Teams Geothermal System Installer Relationship Specialty Start Date End Date Robert Batista MD [address] [place] [address] PCP - General Family Medicine 07/04/25 documented as of this encounter
--- OUTSIDE RECORDS SUMMARY | 2025-07-11 04:28 | XMS_ITS | Encounter Summary ---
Author Organization [employer] ([place], [place], [place], [place], [place]) Address [address] [place] [address] Care Team Providers Care Office Administrative Assistant Name Role Phone Robert Batista MD Primary Care Provider [phone] Encounter Details Date Type Department Care Team (Late st Contact Info) Description 01/11/2021 Transcribed Document [facility] Family Medicine [facility] [address] ProviderMacrina MD [address] [place] [address] Social History Tobacco Use Types Packs/Day Years Used Date Smoking Tobacco: Never Assessed Sex and Gender Information Value Date Recorded Sex Assigned at Not on file Legal Sex Male 1:13 PM CDT Gender Identity Not on file Sexual Orientation Not on file documented as of this encounter Miscellaneous Notes * Cerner Conversion Note - Macrina ProviderMD - 01/11/2021 2:00 AM CDT Residential Program Director Details Entered On: 01/11/2021 2:55 EDT Performed [...] on filedocumented in this encounter Care Teams Office Administrative Assistant Relationship Specialty Start Date End Date Robert Batista MD [address] [place], [place] [address] PCP - General Family Medicine 07/04/25 documented as of this encounter
--- OUTSIDE RECORDS SUMMARY | 2025-07-11 04:28 | XMS_ITS | Encounter Summary ---
Author Organization [employer] ([place], [place], [place], [place], [place]) Address [address] [place] [address] Care Team Providers Care Property Management Accountant Name Role Phone Robert Batista MD Primary Care Provider [phone] Encounter Details Date Type Department Care Team (Late st Contact Info) Description 01/01/2021 Transcribed Document [facility] [place] [facility] [place] [address] ProviderMacrina MD [address] [place] [address] Social History Tobacco Use Types Packs/Day Years [...] Medical. Electronically signed by Olinda Payne Conversion Stripper And Opaquer Apprentice Cerner at 11/10/2022 9:14 AM CDT documented in this encounter Plan of Treatment Not on file documented as of this encounter Visit Diagnoses Not on filedocumented in this encounter Care Teams Property Management Accountant Relationship Specialty Start Date End Date Robert Batista MD [address] [place] [address] PCP - General Family Medicine 07/04/25 documented as of this encounter
--- OUTSIDE RECORDS SUMMARY | 2025-07-11 04:28 | XMS_ITS | Encounter Summary ---
Author Organization [employer] ([place], [place], [place], [place], [place]) Address [address] [place] [address] Care Team Providers Care Frame Aligner Name Role Phone Robert Batista MD Primary Care Provider [phone] Encounter Details Date Type Department Care Team (Late st Contact Info) Description 12/28/2020 Transcribed Document [facility] [place] [facility] [address] ProviderMacrina MD [address] [place] [address] Social History Tobacco Use Types Packs/Day Years [...] S1, S2, No edema. Integumentary: Warm, Dry, [place]. Review / Management Results review: DEC 28 [...] 7.365 12/27/2020 17:54 pCO2 Art POC 54.2 DE 12/27/2020 22:07 pO2 Art POC 141.0 DE 12/27/2020 22:07 HCO3 Art POC 31.0 HI 12/27/2020 22:05 tCO2 Art POC 33.0 DE 12/27/2020 22:06 BE Art POC 6.0 DE 12/27/2020 22:06 sO2 Art POC 99.0 DE 12/27/2020 22:07 ABG Num of Draw Attempts 1 NA 12/28/2020 04:43 PaO2/FiO2 calculated 313 12/28/2020 04:43 Coagulation Results (Current Encounter/Past 24 Hours) PT 11.4 Second(s) 12/28/2020 05:41 PTT 62.4 Second(s) DE 12/27/2020 17:59 INR 1.1 12/28/2020 05:41 . [...] on filedocumented in this encounter Care Teams Frame Aligner Relationship Specialty Start Date End Date Robert Batista MD [address] [place] [address] PCP - General Family Medicine 07/04/25 documented as of this encounter
--- OUTSIDE RECORDS SUMMARY | 2025-07-11 04:28 | XMS_ITS | Encounter Summary ---
Author Organization [employer] ([place], [place], [place], [place], [place]) Address [address] [place] [address] Care Team Providers Care Automotive Brake Specialist Name Role Phone Robert Batista MD Primary Care Provider [phone] Encounter Details Date Type Department Care Team (Late st Contact Info) Description 01/11/2021 Transcribed Document [facility] [place] [facility] [address] ProviderMacrina MD [address] [place] [address] Social History Tobacco Use Types Packs/Day Years Used Date Smoking Tobacco: Never Assessed Sex and Gender Information Value Date Recorded Sex Assigned at Not on file Legal Sex Male 1:13 PM CDT Gender Identity Not on file Sexual Orientation Not on file documented as of this encounter Miscellaneous Notes * Cerner Conversion Note - Macrina Cordova MD - 01/11/2021 9:35 AM CDT On Going Discharge Planning Entered On: 01/11/2021 9:38 EDT Performed On: 01/11/2021 9:35 EDT by SOPHY RM Rn-Acoustic Warfare AnalystInstructor Hairspring Progress Note Discharge Arrangements : Patient Post-Acute [...] : Clinical Condition of Patient SOPHY RM Rn-Acoustic Warfare Analyst - 01/11/2021 9:35 EDT Narrative Progress Note Narrative Progress Note : HD#15; ELOS 3; LRR; BOOST 6; POD#15 - ElecTAVR/LVentTear/Tamponade = 02=1L; JO=470; TF/Corpak 50cc; voice improving; working w/ST for [...] anticipate transfer to floor soon. SOPHY RM Rn-Acoustic Warfare Analyst - 01/10/21 08:19:07 HD#13; ELOS 3; LRR; BOOST 6; POD#13 - ElectiveTAVR/LVentTear/Tamponade - 02=2L; BIPAP prn for WOB/hs; Duonebs/IS/FVD encouraged; Patricio gtt; central line d/c /15/PICC placed; T=100; Maxipime; working with therapy - very weak; Mod-Max A x2 to EOB - not safe to stand; ST - failed/ongoing dysphagia tx; Corpak/TF; DCP rehab - improving. SOPHY RM Rn-Acoustic Warfare Analyst - 01/09/21 07:48:59 HD#12; ELOS 3; LRR; BOOST 6; POD #12 - Electiv TAVR/LVentTear/Cardiac Tamponade SOPHY RM Rn-Acoustic Warfare Analyst - 01/08/21 14:56:21 HD#12; ELOS 3; LRR; BOOST 6; POD #12 - Electiv TAVR/LVentTear/Cardiac Tamponade/Embolic Strokes w/ R side weakness; RA; IS/FVD encouraged; report pt with delerium/lethargy overnight - pulled out IV; PICC ordered today; R arm weakness; Corpak/TF - failed ST evaluation - improving; DCP Rehab; continue to follow SOPHY RM Rn-Acoustic Warfare Analyst - 01/08/21 14:58:32 HD#11; ELOS 3; MRR; BOOST 6; POD#11 - Elective TAVR/LVentTear/Cardiac Tamponade; 02=2L; Maxipime/Ancef; IV Bumex; working w/therapy and stood at side of bed; SOPHY RM Rn-Acoustic Warfare Analyst - 01/07/21 14:34:53 HD#11; ELOS 3; MRR; BOOST 6; POD#11 - Elective TAVR/LVentTear/Cardiac Tamponade; 02=2L; Maxipime/Ancef; IV Bumex; working w/therapy and stood at side of bed; ST - ongoing rec for NPO r/t dysphagia - tx; instrumental 3-4 days; Corpak/TF; DCP anticipate rehab; initial referrals placed thru [facility] and list w/post acute star ratings provided to pt for choicing. SOPHY RM Rn-Acoustic Warfare Analyst - 01/07/21 14:36:37 HD#8; ELOS 3; LRR; BOOST 6; POD#8 - Elec TAVR/LVentTear/Cardiac Tamponade - intubated fi02 100; awake/calm/following commands; bronchoscopy scheduled today; SBT; T=101.2; MRI - diffuse scattered bilateral infarcts; Dr. Navarro states during MDR that if pt is unable to successfully wean over weekend will need trach/peg consult on Thursday; continue to follow; will need therapy evaluations when extubated. SOPHY RM Rn-Acoustic Warfare Analyst - 01/04/21 15:16:12 HD#7; ELOS 3; LRR; BOOST 6; POD#7 - Elective TAVR/LVentTear/CardiacTamponade/Arrest - intubated fi02 40/peep 8; SBT x 2 hr; Fent/Precedex gtt; Corpak/TF; Humza CT in place; Neurology following - MRI diffuse scattered bilateral infarcts; pt w/improvement in movement of R side; PT/OT evaluations when extubated; DCP TBD - likely rehab. SOPHY RM Rn-Acoustic Warfare Analyst - 01/03/21 15:03:09 HD#6; ELOS 3; LRR; BOOST 6; POD #6 - Electiv TAVR/L Vent Tear/Cardiac Tamponode/Arrest - reintubated 01/01; fi02 40; Levo/Fent/Precedex gtt; wean sedation - on SBT 2hr TID; T=99.9; Dr. Navarro states during MDR that pt's spouse aware may need trach/peg; DCP TBD pending progress. SOPHY RM Rn-Acoustic Warfare Analyst - 01/02/21 14:55:12 HD#5; ELOS 3; LRR; BOOST 6; POD #5 - Elective TAVR/L Ventrial Tear/Cardiac Tamponode; extubated on 12/31 required reintubation today fi02 60/peep 8; Precedex/Fent gtt; Corpak/TF; IV Zosyn; CT draining; T=100; DCP TBD pending progress; will need therapy evals when appropriate. SOPHY RM Rn-Acoustic Warfare Analyst - 01/01/21 14:47:57 HD#4; ELOS 3; LRR; POD#4 - Electiv TAVR; L Ventrical Tear; intubated fi02 50; Cardene gtt; Corpak to be placed and TF initiated; SBT today; following commands; Head MRI ordered; possible extubation post MRI; no movement noted on R side; will need PT/OT evaluations when extubated; DCP pending progress - likely rehab. SOPHY RM Rn-Acoustic Warfare Analyst - 12/31/20 14:58:43 DCP TBD - pending progress; OP Cardiac Rehab referral placed thru [facility]. SOPHY RM Rn-Acoustic Warfare Analyst - 12/28/20 12:42:03 SOPHY RM Rn-Acoustic Warfare Analyst - 01/11/2021 9:35 EDT documented in this encounter Plan of Treatment Not on file documented as of this encounter Visit Diagnoses Not on filedocumented in this encounter Care Teams Automotive Brake Specialist Relationship Specialty Start Date End Date Robert Batista MD [address] [place] [address] PCP - General Family Medicine 07/04/25 documented as of this encounter
--- OUTSIDE RECORDS SUMMARY | 2025-07-11 04:28 | XMS_ITS | Encounter Summary ---
Author Organization [employer] ([place], [place], [place], [place], [place]) Address [address] [place] [address] Care Team Providers Care Blue Leather Sorter Name Role Phone Robert Batista MD Primary Care Provider [phone] Encounter Details Date Type Department Care Team (Late st Contact Info) Description 01/03/2021 Transcribed Document [facility] Radiology [address] [place] [address] Abby Rodrigues MD [address] [place] [address] Social History Tobacco Use Types Packs/Day Years [...] Basic Information PCP: Robert Batista MD Primary Payroll Representative: Arthur Gomez MD Subjective Patient seen and [...] 49 (JAN 02 14:00) SBP 104 (JAN 03 07:00) 92 (JAN 02 09:00) H 150 (JAN [...] 24 Hours) Radiology Results (Last 48 hours) [id number] -- 12/27/2020 06:39 CR Chest 1 Vw [...] Avelar.Transcribed by [place] PA-C, Mynor (N), C Trevon Bishop T.I have personally viewed, interpreted and [...] Avelar.Transcribed by [place] Mohan PA-C, R.T. (N), C [...] s/p pericardiocentesis and surgical repair of LV [place]. PEA Arrest; CODE called 10 minutes to [...] on filedocumented in this encounter Care Teams Blue Leather Sorter Relationship Specialty Start Date End Date Robert Batista MD [address] [place] [phone] PCP - General Family Medicine 07/04/25 documented as of this encounter
--- OUTSIDE RECORDS SUMMARY | 2025-07-11 04:28 | XMS_ITS | Encounter Summary ---
Author Organization [employer] ([place], [place], [place], [place], [place]) Address [address] [place] [address] Care Team Providers Care Sales Market Leader Name Role Phone Robert Batista MD Primary Care Provider [phone] Encounter Details Date Type Department Care Team (Late st Contact Info) Description 01/01/[address] [facility] Family Medicine [address] [place] [address] ProviderMacrina MD [address] [place] [address] Social History Tobacco Use Types Packs/Day Years Used Date Smoking Tobacco: Never Assessed Sex and Gender Information Value Date Recorded Sex Assigned at Not on file Legal Sex Male 1:13 PM CDT Gender Identity Not on file Sexual Orientation Not on file documented as of this encounter Miscellaneous Notes * Cerner Conversion Note - Macrina ProviderMD - 01/01/2021 7:54 PM CDT Event [...] to transition gtt to IV pump. Amber Paul RN - 01/01/2021 19:54 EDT documented in this encounter Plan of Treatment Not on file documented as of this encounter Visit Diagnoses Not on filedocumented in this encounter Care Teams Sales Market Leader Relationship Specialty Start Date End Date Robert Batista MD [address] [place], [place] [address] PCP - General Family Medicine 07/04/25 documented as of this encounter
--- OUTSIDE RECORDS SUMMARY | 2025-07-11 04:28 | XMS_ITS | Encounter Summary ---
Author Organization [employer] ([place], [place], [place], [place], [place]) Address [address] [place] [address] Care Team Providers Care Lining Sewer Name Role Phone Robert Batista MD Primary Care Provider [phone] Encounter Details Date Type Department Care Team (Late st Contact Info) Description 01/01/2021 Transcribed Document [facility] Family Medicine [facility] [address] ProviderMacrina MD [address] [place], [place] [address] Social History Tobacco Use Types Packs/Day Years [...] available and we will continue to follow. /[id number] MD BECKY Moss/STACIE / BECKY / MODL /[id number] Electronically signed by Interface, Sjh Conversion Maintenance Supervisor 2Nd Shift Cerner at 11/10/2022 9:17 AM CDT documented in this encounter Plan of Treatment Not on file documented as of this encounter Visit Diagnoses Not on filedocumented in this encounter Care Teams Lining Sewer Relationship Specialty Start Date End Date Robert Batista MD [address] [place] [address] PCP - General Family Medicine 07/04/25 documented as of this encounter
--- OUTSIDE RECORDS SUMMARY | 2025-07-11 04:28 | XMS_ITS | Encounter Summary ---
Author Organization [employer] ([place], [place], [place], [place], [place]) Address [address] [place] [address] Care Team Providers Care Bookkeepers Supervisor Name Role Phone Robert Batista MD Primary Care Provider [phone] Encounter Details Date Type Department Care Team (Late st Contact Info) Description 12/28/2020 Transcribed Document [facility] [place] [facility] Family Medicine [facility] [place] [address] ProviderMacrina MD [address] [place] [address] Social History Tobacco Use Types Packs/Day Years [...] 12/28/2020 10:19 AM CDT Patient: [facility]: [id number] Age: 80 years Sex: Male : 1940 [...] Problems Aortic valve stenosis / SNOMED CT 831161344 / Confirmed Arthritis of right knee / SNOMED CT 5003130393 / Confirmed At risk for sleep apnea / IMO 51354490 / Confirmed Chronic anxiety / SNOMED CT 888740088 / Confirmed Back pain, chronic / SNOMED CT 434394064 / Confirmed Colorectal surgery / SNOMED CT 3925115045 / Confirmed Disorder of prostate / SNOMED CT 50179953 / Confirmed GERD - Gastro-esophageal reflux disease / SNOMED CT 8069140186 / Confirmed H/O peripheral neuropathy / SNOMED CT 821826912 / Confirmed feet tingle all the time HTN - Hypertension / SNOMED CT 8298842862 / Confirmed Hyperlipidemia / SNOMED CT 24705849 / Confirmed Hypertension / SNOMED CT 60378907 / Confirmed Aortic stenosis, severe / SNOMED CT 2104535340 / Confirmed Resolved: Cancer of colon / SNOMED CT 2189464873, Active Problems (13) Aortic stenosis, severe Aortic [...] Labs (Last four charted values) WBC 7.4 (CESAR 04) 7.4 (CESAR 03) H 19.7 (CESAR 03) H 17.9 (CESAR 03) HB L 8.3 (CESAR 04) L 8.2 [...] (CESAR 03) H 203 (CESAR 03) 20 (DEC 25) ALK P 53 (DEC 28) 46 (DEC 27) 76 (DEC 27) 107 (DEC 25) T Bili H 2.2 (DEC 28) H 1.5 (DEC 27) 1.0 (DEC 27) 1.0 (DEC 25) PTN L 4.8 (DEC [...] 12/28/2020 04:43 Radiology Results (Last 48 hours) [id number] -- 12/27/2020 06:39 CR Chest 1 Vw [...] and cardiothoracic surgery attendings Electronically signed by [facility] Conversion Frothing Machine Operator Cerner at 11/10/2022 9:19 AM CDT documented in this encounter Plan of Treatment Not on file documented as of this encounter Visit Diagnoses Not on filedocumented in this encounter Care Teams Bookkeepers Supervisor Relationship Specialty Start Date End Date Robert Batista MD [address] [place] [address] PCP - General Family Medicine 07/04/25 documented as of this encounter
--- OUTSIDE RECORDS SUMMARY | 2025-07-11 04:28 | XMS_ITS | Continuity of Care Document ---
Author Organization [place] [facility] [place] Jasmine roberts [facility] Address [address] [facility] [address] [place] [address] Care Team Providers Care Graduate Rn Name Role Phone PERICO AWAN Referring Provider [phone] Assessment Encounter Date Assessment Date Assessment LastModified by Organization Details LastModified Time 05/01/2025 05/01/2025 84-year-old male with bladder stones and urinary retention. Self-catheter izing since August; stones are small. On Flomax and finasteride; further evaluation needed for treatment plan. Bladder Stones: - Evaluate stone size and consider surgical intervention. - Perform cystoscopy and ultrasound to assess bladder and prostate. Urinary Retention: - Continue self-catheter ization as needed. - Assess for potential surgical options. [email or web address] Not available 05/01/2025 13:42:28 Plan of Treatment Reminders Order Date Submit Date Provider Last Modified By Organization Details Last Modified Time Details Appointments RECHECK 2024 10:45A M MARGARET DUNCAN MD Not available Not available Not available Lab None recorded. Referral None recorded. Procedures None recorded. Surgeries cystoscop y (SURG) 06/07/ [address] [facility] Of [facility] Professional Charges, [address], [address], [place], [address], 07/05/2025 07:49:49 Imaging None recorded. Medication Orders None recorded. Patient TargetsNo targets recorded. Patient Instructions Encounter Date Encounter Id Patient Instructions Last Modified By Organization Details Last Modified Time 05/01/2025 [id number] - Continue self-catheterizat ion twice daily as instructed. - Attend scheduled evaluations for further assessment of bladder stones and urinary retention. - Report any changes in symptoms or difficulties with catheterization. [email or web address] Not available 05/01/2025 13:42:30 Reason for Referral None Reported. Problems Name Problem SNOMED Code Status Onset Date Resolution Date Notes Provider Name and Address Organization Details Recorded Time Lower urinary tract symptoms due to benign prostatic hypertrophy 0159847998709 1 Active 2024 MARGARET DUNCAN JR, MD [address] [place] [address], [phone], [facility] 09:16:06 Retention of urine 945801566 Active 2024 MARGARET DUNCAN JR, MD [address] [place] [address], [phone], [facility] 09:16:06 Problem Notes None recorded. Procedures Surgical History Date Name Laterality Status Provider Name and Address Organization Details Recorded Time 025 Transrectal Ultrasound completed MARGARET DUNCAN JR, MD [address] [place] [address], [phone], [facility] 06/07/2025 15:44:21 025 Cystoscopy - male completed MARGARET DUNCAN JR, MD [address] [place] [address], [phone], [facility] 06/07/2025 15:44:12 025 Uroflowmetry; Complex completed Vicki Pérez [facility] 06/09/2025 09:42:51 Cholecystectomy completed Murelene Raghu [facility] 05/01/2025 13:41:05 procedure on colon completed Murelene Je tt [facility] 05/01/2025 13:41:17 Heart Surgery completed Murelene Raghu [facility] 05/01/2025 13:41:23 excision of squamous cell carcinoma completed Murelene Raghu [facility] 05/01/2025 13:41:46 Imaging Results None recorded. [...] Not Available Not Available Not Available Vitals Date Recorded Body height Body mass index (BMI) Body weight Provider Name and Address Organization Details Last Updated DateTime 05/01/2025 170.18 cm 20.4 kg/m2 97273.01 [facility] 05/01/2025 13:40:01 Social History Question Answer Notes LastModified by Organizat [employer] Details LastModified Time Tobacco Smoking Status Never Smoker Surendra [facility] 05/01/2025 13:40:53 What Was The Date [...] 50 mcg/0.25mL dose 1 completed Not Available [facility] 06/07/2025 12:32:48 COVID-19, mRNA, LNP-S, PF, 100 mcg/0.5mL dose or 50 mcg/0.25mL dose 1 completed Not Available [facility] 06/07/2025 12:32:48 COVID-19, mRNA, LNP-S, PF, 100 mcg/0.5mL dose or 50 mcg/0.25mL dose 1 completed Not Available [facility] 06/07/2025 12:32:48 COVID-19, mRNA, LNP-S, PF, 100 mcg/0.5mL dose or 50 mcg/0.25mL dose 1 completed Not Available [facility] 06/07/2025 12:32:48 COVID-19, mRNA, LNP-S, bivalent, PF, 50 mcg/0.5 mL or 25mcg/0.25 mL dose 2 completed Not Available [facility] 06/07/2025 12:32:48 influenza, seasonal, intradermal, preservative free 3 completed Not Available [facility] 06/07/2025 12:32:48 Tdap 4 completed Not Available [facility] 06/07/2025 12:32:48 Influenza, high-dose, trivalent, PF 5 completed Not Available [facility] 06/07/2025 12:32:48 Past Encounters Encounter ID Performer Location Encounter Start Date Encounter Closed Date Diagnosis/Indication Diagnosis SNOMED-CT Code Diagnosis ICD10 Code Diagnosis IMO Codes Diagnosis Note [id number] MD [facility] [address] [facility] [address] [place] [address] 05/01/2025 12:54:38 05/02/2025 09:41:09 Lower urinary tract symptoms due to benign prostatic hypertrophy 6841905003 9101 N40.1 64146509 Retention of urine 76914 4002 R33.9 63401 Health Concerns Section Related Observation LastModified by Organization Detai ls LastModified Time None Recorded Concern Status LastModified by Organization Details LastModified Time None Recorded Payers Encounter Date Sequence Insurance Name Policy Number Policy Faith Covered Member ID Faith Member ID Guarantor Name 05/01/2025 2 [facility] (MEDICARE REPLACEMENT/A DVANTAGE - HMO) [id number] Francesco Adorno [id number] Francesco Adorno Notes Date Note Type Note Provider Name and Address Organization Details Recorded Time 05/01/2025 text/html The patient is an 84-year-old male [...] prior to signature. MARGARET DUNCAN JR, MD [address] [place] [address], [phone], [facility] 05/03/2025 09:16:32
--- OUTSIDE RECORDS SUMMARY | 2025-07-11 04:28 | XMS_ITS | Encounter Summary ---
Author Organization [employer] ([place], [place], [place], [place], [place]) Address [address] [place] [address] Care Team Providers Care Shuttle Threader Name Role Phone Robert Batista MD Primary Care Provider [phone] Encounter Details Date Type Department Care Team (Late st Contact Info) Description 01/03/2021 Transcribed Document [facility] [place] [address] [place] [address] ProviderMacrina MD [address] [place], [place] [address] Social History Tobacco Use Types Packs/Day Years [...] : 12/27/2020 06:39 Co-treated by, OT : porcelain buildup assistant (CLERK FUNERAL DETAIL) Personal Devices : Personal Devices No Devices [...] Rehab Moderate assistance (Comment: x2 [HAYDEE OH OTR/L - 01/15/2021 16:20 EDT] ) Stand to Sit : Rehab Moderate assistance HAYDEE OH OTR/L - 01/15/2021 16:20 EDT Cognitive Treatment, OT Orientation : Oriented x 4 HAYDEE OH OTR/L - 01/15/2021 16:20 EDT Plan of Care, OT OT Tx Plan/Goals Established w Patient : Yes HAYDEE OH OTR/L - 01/15/2021 16:20 EDT Bio Medical Technician Goals, OT Grooming LTG Grid Goal #1 [...] 01/17/2021 EDT Goal Status : Progressing, continue ALTHEA HAYDEE OTR/L - 01/15/2021 16:20 EDT Treatment Note [...] Treatment : Cont OT POC HAYDEE OH OTSherron/L - 01/15/2021 16:20 EDT [place] OT Charges OT Ther Activities Ea 15 Min : 2 HAYDEE OH OTR/L - 01/15/2021 16:20 EDT documented in this encounter Plan of Treatment Not on file documented as of this encounter Visit Diagnoses Not on filedocumented in this encounter Care Teams Shuttle Threader Relationship Specialty Start Date End Date Robert Batista MD [address] [place] [address] PCP - General Family Medicine 07/04/25 documented as of this encounter
--- OUTSIDE RECORDS SUMMARY | 2025-07-11 04:28 | XMS_ITS | Encounter Summary ---
Author Organization [employer] ([place], [place], [place], [place], [place]) Address [address] [place] [address] Care Team Providers Care Silver Brazer Name Role Phone Robert Batista MD Primary Care Provider [phone] Encounter Details Date Type Department Care Team (Late st Contact Info) Description 01/17/2021 Transcribed Document [facility] Family Medicine [facility] [place] [address] ProviderMacrina MD [address] [place] [address] Social History Tobacco Use Types [...] On: 01/17/2021 15:35 EDT by ASHLEY CHAIDEZ RN-Area Sales ManagerVolunteer Manager Progress Note Discharge Arrangements : Patient [...] Attend Multidisciplinary Rounds? 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 He complained of declining functional capacity and easy fatiguability and presents for a TVAR. 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 Telemetry NSR, right side hemiparesis, dysthria, Ambulated 3 feet around bed to chair with RWx modA. PEG placed today. No atending physician listed on Cerner. Admission H&P by Cardiology. CM contacted [facility] to confirm they would be writing discharge order and summary for patient discharge to [facility] tomorrow. DCP: [facility] tomorrow. Plan to transport by [facility]. Historical Progress Note : RAR Low ELOS: [...] around bed to chair with RWx modA. MBBS/TESTER PRINTED CIRCUIT BOARDS: Recommend PEG, plan is placement tomorrow. DCP: [facility] after PEG placed. Patient has traditional MC will not need a PA. Plan to transport by [facility]. ASHLEY CHAIDEZ RN-Area Sales Manager - 01/16/21 17:33:58 RAR Low ELOS: 3 [...] with RWx modA. DCP: Referral made to [facility], patient's 1st choice, via [facility]. bao Barnes said her MD would accept patient but would like for his PEG to be placed prior to discharge. Patient has traditional Medicare so he will not need a preauth. ASHLEY CHAIDEZ RN-Area Sales Manager - 01/14/21 15:53:43 HD#15; ELOS 3; LRR; BOOST 6; POD#15 - ElecTAVR/LVentTear/Tamponade = 02=1L; CW=523; TF/Corpak 50cc; voice improving; working w/ST for dysphagia; plan for repeat instrumental in 1 wk; ongoing therapy; spouse to provide choicing for STR; on transfer out of [facility]. SOPHY RM Rn-Area Sales Manager - 01/11/21 09:38:52 HD#14; ELOS 3; LRR; BOOST 6; POD#14 - ElecTAVR/LVentTear/Tamponade = 02=2L; BIPAP prn; Duonebs; Cefepime/Zosyn; FEES today; Cardiology managing Tacycardia; per LOS recommendation - pt referred to LTAC; likely DCP subacute rehab; anticipate transfer to floor soon. SOPHY RM, Rn-Area Sales Manager - 01/10/21 08:19:07 HD#13; ELOS 3; LRR; BOOST 6; POD#13 - ElectiveTAVR/LVentTear/Tamponade - 02=2L; BIPAP prn for WOB/hs; Duonebs/IS/FVD encouraged; Patricio gtt; central line d/c 6/15/PICC placed; T=100; Maxipime; working with therapy - very weak; Mod-Max A x2 to EOB - not safe to stand; ST - failed/ongoing dysphagia tx; Corpak/TF; DCP rehab - improving. SOPHY RM Rn-Area Sales Manager - 01/09/21 07:48:59 HD#12; ELOS 3; LRR; BOOST 6; POD #12 - Electiv TAVR/LVentTear/Cardiac Tamponade SOPHY RM Rn-Area Sales Manager - 01/08/21 14:56:21 HD#12; ELOS 3; LRR; BOOST 6; POD #12 - Electiv TAVR/LVentTear/Cardiac Tamponade/Embolic Strokes w/ R side weakness; RA; IS/FVD encouraged; report pt with delerium/lethargy overnight - pulled out IV; PICC ordered today; R arm weakness; Corpak/TF - failed ST evaluation - improving; DCP Rehab; continue to follow SOPHY RM Rn-Area Sales Manager - 01/08/21 14:58:32 HD#11; ELOS 3; MRR; BOOST 6; POD#11 - Elective TAVR/LVentTear/Cardiac Tamponade; 02=2L; Maxipime/Ancef; IV Bumex; working w/therapy and stood at side of bed; SOPHY RM Rn-Area Sales Manager - 01/07/21 14:34:53 HD#11; ELOS 3; MRR; BOOST 6; POD#11 - Elective TAVR/LVentTear/Cardiac Tamponade; 02=2L; Maxipime/Ancef; IV Bumex; working w/therapy and stood at side of bed; ST - ongoing rec for NPO r/t dysphagia - tx; instrumental 3-4 days; Corpak/TF; DCP anticipate rehab; initial referrals placed thru [facility] and list w/post acute star ratings provided to pt for choicing. SOPHY RM Rn-Area Sales Manager - 01/07/21 14:36:37 HD#8; ELOS 3; LRR; BOOST 6; POD#8 - Elec TAVR/LVentTear/Cardiac Tamponade - intubated fi02 100; awake/calm/following commands; bronchoscopy scheduled today; SBT; T=101.2; MRI - diffuse scattered bilateral infarcts; Dr. Navarro states during MDR that if pt is unable to successfully wean over weekend will need trach/peg consult on Thursday; continue to follow; will need therapy evaluations when extubated. SOPHY RM Rn-Area Sales Manager - 01/04/21 15:16:12 HD#7; ELOS 3; LRR; BOOST 6; POD#7 - Elective TAVR/LVentTear/CardiacTamponade/Arrest - intubated fi02 40/peep 8; SBT x 2 hr; Fent/Precedex gtt; Corpak/TF; Humza CT in place; Neurology following - MRI diffuse scattered bilateral infarcts; pt w/improvement in movement of R side; PT/OT evaluations when extubated; DCP TBD - likely rehab. SOPHY RM Rn-Area Sales Manager - 01/03/21 15:03:09 HD#6; ELOS 3; LRR; BOOST 6; POD #6 - Electiv TAVR/L Vent Tear/Cardiac Tamponode/Arrest - reintubated 01/01; fi02 40; Levo/Fent/Precedex gtt; wean sedation - on SBT 2hr TID; T=99.9; Dr. Navarro states during MDR that pt's spouse aware may need trach/peg; DCP TBD pending progress. SOPHY RM Rn-Area Sales Manager - 01/02/21 14:55:12 HD#5; ELOS 3; LRR; BOOST 6; POD #5 - Elective TAVR/L Ventrial Tear/Cardiac Tamponode; extubated on 12/31 required reintubation today fi02 60/peep 8; Precedex/Fent gtt; Corpak/TF; IV Zosyn; CT draining; T=100; DCP TBD pending progress; will need therapy evals when appropriate. SOPHY RM Rn-Area Sales Manager - 01/01/21 14:47:57 HD#4; ELOS 3; LRR; POD#4 - Electiv TAVR; L Ventrical Tear; intubated fi02 50; Cardene gtt; Corpak to be placed and TF initiated; SBT today; following commands; Head MRI ordered; possible extubation post MRI; no movement noted on R side; will need PT/OT evaluations when extubated; DCP pending progress - likely rehab. SOPHY RM Rn-Area Sales Manager - 12/31/20 14:58:43 DCP TBD - pending progress; OP Cardiac Rehab referral placed thru [facility]. SOPHY RM, Rn-Area Sales Manager - 12/28/20 12:42:03 ASHLEY CHAIDEZ, RN-Area Sales Manager - 01/17/2021 15:35 EDT Electronically signed by [facility] Conversion Business Line Controller Cerner at 11/10/2022 9:29 AM CDT documented in this encounter Plan of Treatment Not on file documented as of this encounter Visit Diagnoses Not on filedocumented in this encounter Care Teams Silver Brazer Relationship Specialty Start Date End Date Robert Batista MD [address] [place] [address] PCP - General Family Medicine 07/04/25 documented as of this encounter
--- OUTSIDE RECORDS SUMMARY | 2025-07-11 04:29 | XMS_ITS | Encounter Summary ---
Author Organization [employer] ([place], [place], [place], [place], [place]) Address [address] [place] [address] Care Team Providers Care Travel Services Professional Name Role Phone Robert Batista MD Primary Care Provider [phone] Encounter Details Date Type Department Care Team (Late st Contact Info) Description 12/27/2020 Transcribed Document [facility] [place] [address] ProviderMacrina MD [address] [place] [address] Social History Tobacco Use Types Packs/Day Years [...] Initial Visit : No Referred by : [facility] Provided to : Patient, Family/Significant other LAVERN VALDIVIA Chaplain - 12/27/2020 18:36 EDT Spiritual Assessment Spiritual Assessment Comment/Summary Points : follow up visit as recommended by previous branch service leader. Supportive presence and conversation provided for [...] - 12/27/2020 18:36 EDT Electronically signed by [facility] Conversion Developmental Psychologist Cerner at 11/10/2022 9:13 AM CDT documented in this encounter Plan of Treatment Not on file documented as of this encounter Visit Diagnoses Not on filedocumented in this encounter Care Teams Travel Services Professional Relationship Specialty Start Date End Date Robert Batista MD [address] [place] [address] PCP - General Family Medicine 07/04/25 documented as of this encounter
--- OUTSIDE RECORDS SUMMARY | 2025-07-11 04:29 | XMS_ITS | Encounter Summary ---
Author Organization [employer] ([place], [place], [place], [place], [place]) Address [address] [place] [address] Care Team Providers Care International Trade Specialist Name Role Phone Robert Batista MD Primary Care Provider [phone] Encounter Details Date Type Department Care Team (Late st Contact Info) Description 12/29/2020 Transcribed Document [facility] Family Medicine [address] [place] [address] ProviderMacrina MD [address] [place] [address] Social History Tobacco Use [...] on filedocumented in this encounter Care Teams International Trade Specialist Relationship Specialty Start Date End Date Robert Batista MD [address], [place] [address] PCP - General Family Medicine 07/04/25 documented as of this encounter
--- OUTSIDE RECORDS SUMMARY | 2025-07-11 04:29 | XMS_ITS | Encounter Summary ---
Author Organization [employer] ([place], [place], [place], [place], [place]) Address [address] [place] [address] Care Team Providers Care Dry Wall Sprayer Name Role Phone Robert Batista MD Primary Care Provider [phone] Encounter Details Date Type Department Care Team (Late st Contact Info) Description 12/29/2020 Transcribed Document [facility] Radiology [address] [place] [address] Abby Rodrigues MD [address] [place] [address] Social History Tobacco Use Types Packs/Day Years [...] Basic Information PCP: Robert Batista MD Primary Pediatrician Managing Partner: Arthur Gomez MD Subjective mechanical vent, not [...] 45 (DEC 28 12:00) 70 (DEC 29 05:) MAP 69 (DEC 29 06:00) 57 (DEC 28 11:03) 101 (DEC 29 05:00) SpO2 99 (DEC 29:) L 85 (DEC 28 11:03) 100 (DEC 28 09:) General: Intubated/Sedated. Eye: Normal conjunctiva. HENT: Normocephalic. [...] 24 Hours) Radiology Results (Last 48 hours) [id number] -- 12/27/2020 06:39 CR Chest 1 Vw [...] s/p pericardiocentesis and surgical repain of LV Irwin. PEA Arrest; CODE called 10 minutes to [...] on filedocumented in this encounter Care Teams Dry Wall Sprayer Relationship Specialty Start Date End Date Robert Batista MD [address], [place] [address] PCP - General Family Medicine 07/04/25 documented as of this encounter
--- OUTSIDE RECORDS SUMMARY | 2025-07-11 04:29 | XMS_ITS | Encounter Summary ---
Author Organization [employer] ([place], [place], [place], [place], [place]) Address [address] [place] [address] Care Team Providers Care Floral Assistant Name Role Phone Robert Batista MD Primary Care Provider [phone] Encounter Details Date Type Department Care Team (Late st Contact Info) Description 01/03/2021 Transcribed Document [facility] Pulm & Critical Care Medicine [address] [place] [address] [place], [place] [address] [place] [address] [place] [address] [address] [place] [address] Social History Tobacco Use Types Packs/Day Years [...] 0.5 MCG/KG/. Awake and following commands, positive button breaker operator in bilateral hands. MRI brain yesterday [...] Medical Aortic valve stenosis / SNOMED CT 787789229 / Confirmed At risk for sleep apnea / IMO [id number] / Confirmed Colorectal surgery / SNOMED CT 4455793419 / Confirmed HTN - Hypertension / SNOMED CT 1383466232 / Confirmed, Active Problems (13) Aortic stenosis, [...] 32 (CESAR 09) H 50 (DEC 08) H 78 (DEC 06) ALT 33 (DEC 10) 28 (DEC 09) 33 (DEC 08) 35 (DEC 06) ALK P 73 (JAN 03) 65 (DEC 09) 71 (DEC 08) 64 (DEC 06) T Bili H 1.3 (JAN 03) H 1.7 (DEC 09) H 2.3 (DEC 08) H 2.2 (DEC 30) PTN L 5.3 (JAN 03) L 5.1 (DEC 09) L 5.8 (DEC 08) L 5.2 (DEC 30) ALB L 2.1 [...] / H 138 4.5 30 0.80 \ CESAR 10 04:37 \ L 8.1 / H 9.6 [...] 01/03/2021 04:20 Radiology Results (Last 48 hours) [id number] -- 12/27/2020 06:39 CR Chest 1 Vw [...] including critical care team, CCRN, RT., Boat Master , case management and clinical pharmacist. I [...] on filedocumented in this encounter Care Teams Floral Assistant Relationship Specialty Start Date End Date Robert Batista MD [address] [place] [address] PCP - General Family Medicine 07/04/25 documented as of this encounter
--- OUTSIDE RECORDS SUMMARY | 2025-07-11 04:29 | XMS_ITS | Encounter Summary ---
Author Organization [employer] ([place], [place], [place], [place], [place]) Address [address] [place] [address] Care Team Providers Care Knitting Teacher Name Role Phone Robert Batista MD Primary Care Provider [phone] Encounter Details Date Type Department Care Team (Late st Contact Info) Description 01/07/2021 Transcribed Document [facility] [place] [facility] [place] [address] ProviderMacrina MD [address] [place] [address] Social History Tobacco Use Types [...] On: 01/07/2021 14:30 EDT by ANDREIA TITUS, CDS SALES ADVISOR General Information Visit Type, CDS SALES ADVISOR : Initial evaluation Patient Orders : Speech Language Pathology Additional Tx -111 Start: 01/07/21 10:25:00 EDT, For Dysphagia, Continuous Order - Speech Language Pathology Evaluation and Treatment - Start: 01/07/21 10:06:00 EDT, Routine, For Speech Language Cognitive Eval and Treat -111 ANTHONY JACOBO PA Admission Date : Admission Date/Time: 12/27/20 06:39:00 Medical Chart Reviewed, CDS SALES ADVISOR : Yes Personal Devices : Personal Devices [...] stenosis 12/28/2020 12:00 Polyneuropathy, unspecified Therapy Diagnosis, CDS SALES ADVISOR : Patient presents with mild cognitive impairment and moderate to severe dysarthria. Will initiate tx. Precautions in Place : Fall prevention measures Previous Speech/Language Evaluations : none Previous Swallow Precautions : none in EMR Previous Cognitive Evaluations : none Diet/Intake Prior to Current Admission : regular Diet/Intake During Current Admission : NPO with corpak Intubation Comment, CDS SALES ADVISOR : 12/27-12/31, reintubated 01/01-01/05 Vital Signs RTF [...] 15:02 EDT General Status Patient Received Status, CDS SALES ADVISOR : Long sitting in bed Patient Left Status, CDS SALES ADVISOR : Long sitting in bed ANDREIA TITUS SLP - 01/07/2021 15:02 EDT Motor Speech Intelligible Speech for Daily Living, Motor Sp : Impaired ANDREIA TITUS SLP - 01/07/2021 15:02 EDT Memory Memory for Daily Living : Impaired ANDREIA TITUS SLP - 01/07/2021 15:02 EDT Problem Solving Problem Solving for Daily Living : Impaired ANDREIA TITUS SLP - 01/07/2021 15:02 EDT Evaluation Methods Types of Evaluation, CDS SALES ADVISOR : Formal and subtests Formal and Subtests Eval Types, All Ages : Eliezer Cognitive Assessment (MOCA) MOCA Attention : 4 MOCA Language : 2 MOCA Abstration : 2 MOCA Delayed Recall : 2 MOCA Orientation : 3 MoCA Years of Formal Education : Equal or less than 12 years ANDREIA TITUS SLP - 01/07/2021 15:02 EDT C Impressions Impressions, Speech/Lang/Cog : Dysarthria, Cognitive impairment Dysarthria Type, Motor Speech : Flaccid Dysarthria Severity : Moderate Cognitive Impairment : Impaired problem solving, Impaired memory, Impaired executive function Cognitive Impairment Severity : Mild [facility] Overall Impressions : Patient given the MOCA [...] - 01/07/2021 15:02 EDT Therapy Indication Assessment CDS SALES ADVISOR Indicated : Yes CDS SALES ADVISOR Problem List : Impaired, Memory, Impaired, Motor Speech Potential Barriers to CDS SALES ADVISOR : Cognitive deficit CDS SALES ADVISOR Rehabilitation Potential : Good ANDREIA TITUS SLP - 01/07/2021 15:02 EDT LTG Lang/Comm/Cog LTG CDS SALES ADVISOR Senior Care Goal 1 Loss Prevention And Safety Manager Goal 2 Goals : Improved memory in [...] of Care, LCC : Acute inpatient rehab, senior care facility ANDREIA TITUS SLP - 01/07/2021 15:02 EDT CDS SALES ADVISOR Education STG Grid Goal #1 Activity : [...] SLP - 01/07/2021 15:02 EDT ANDREIA TITUS [facility] - 01/07/2021 15:02 EDT Education Barriers To Learning : Cognitive deficit Individuals Taught : Patient, Family member Readiness to Learn : Cooperative Readiness to Learn : Explanation ANDREIA TITUS SLP - 01/07/2021 15:02 EDT CDS SALES ADVISOR Education Assessment Grid 1 Communication, Effects of Impairment : Verbalizes understanding Communication, Strategies For Patient : Verbalizes understanding Evaluation Results : Verbalizes understanding ANDREIA TITUS SLP - 01/07/2021 15:[address] [facility] CDS SALES ADVISOR Charges Assessment of Cognition : 1 ANDREIA TITUS SLP - 01/07/2021 15:02 EDT Electronically signed by [facility] Conversion Shop Worker Cerner at 11/10/2022 9:08 AM CDT documented in this encounter Plan of Treatment Not on file documented as of this encounter Visit Diagnoses Not on filedocumented in this encounter Care Teams Knitting Teacher Relationship Specialty Start Date End Date Robert Batista MD [address] [place] [address] PCP - General Family Medicine 07/04/25 documented as of this encounter
--- OUTSIDE RECORDS SUMMARY | 2025-07-11 04:29 | XMS_ITS | Encounter Summary ---
Author Organization [employer] ([place], [place], [place], [place], [place]) Address [address] [place] [address] Care Team Providers Care Mica Paster Name Role Phone Robert Batista MD Primary Care Provider [phone] Encounter Details Date Type Department Care Team (Late st Contact Info) Description 01/03/2021 Transcribed Document [facility] [place] [address] [place] [address] ProviderMacrina MD [address] [place], [place] [address] Social History Tobacco Use Types Packs/Day Years [...] clear droop. He is now able to drawing hand weakly on the right which is an [...] ready for discharge; will continue to follow. Electronically signed by Olinda Payne Conversion Senior Software Project Manager Cerner at 11/10/2022 9:16 AM CDT documented in this encounter Plan of Treatment Not on file documented as of this encounter Visit Diagnoses Not on filedocumented in this encounter Care Teams Mica Paster Relationship Specialty Start Date End Date Robert Batista MD [address], [place] [address] PCP - General Family Medicine 07/04/25 documented as of this encounter
--- OUTSIDE RECORDS SUMMARY | 2025-07-11 04:29 | XMS_ITS | Encounter Summary ---
Author Organization [employer] ([place], [place], [place], [place], [place]) Address [address] [place] [address] Care Team Providers Care Material Mover Name Role Phone Robert Batista MD Primary Care Provider [phone] Encounter Details Date Type Department Care Team (Late st Contact Info) Description 12/27/2020 Transcribed Document [facility] [place] Family Medicine [address] [place] [address] ProviderMacrina MD [address] [place] [address] Social History Tobacco Use Types Packs/Day Years Used Date Smoking Tobacco: Never Assessed Sex and Gender Information Value Date Recorded Sex Assigned at Not on file Legal Sex Male 1:13 PM CDT Gender Identity Not on file Sexual Orientation Not on file documented as of this encounter Miscellaneous Notes * Cerner Conversion Note - Macrina ProviderMD - 12/27/2020 5:00 PM CDT Chart [...] on filedocumented in this encounter Care Teams Material Mover Relationship Specialty Start Date End Date Robert Batista MD [address] [place] [address] PCP - General Family Medicine 07/04/25 documented as of this encounter
--- OUTSIDE RECORDS SUMMARY | 2025-07-11 04:29 | XMS_ITS | Encounter Summary ---
Author Organization [employer] ([place], [place], [place], [place], [place]) Address [address] [place] [address] Care Team Providers Care Church Business Administrator Name Role Phone Robert Batista MD Primary Care Provider [phone] Encounter Details Date Type Department Care Team (Late st Contact Info) Description 01/07/[address] [facility] [place] Family Medicine [address] [place] [address] ProviderMacrina MD [address] [place] [address] Social History Tobacco Use Types Packs/Day Years Used Date Smoking Tobacco: Never Assessed Sex and Gender Information Value Date Recorded Sex Assigned at Not on file Legal Sex Male 1:13 PM CDT Gender Identity Not on file Sexual Orientation Not on file documented as of this encounter Miscellaneous Notes * Cerner Conversion Note - Macrina ProviderMD - 01/07/2021 5:00 PM CDT Chart Check - Review Order Profile Entered On: 01/07/2021 18:06 EDT Performed On: 01/07/2021 17:00 EDT by Shayy Bowie, RN Chart Check Powerplans Initiated/Discontinued as Appropriate : Yes All Active Orders Reviewed : Yes Shayy Bowie RN - 01/07/2021 18:06 EDT documented in this encounter Plan of Treatment Not on file documented as of this encounter Visit Diagnoses Not on filedocumented in this encounter Care Teams Church Business Administrator Relationship Specialty Start Date End Date Robert Batista MD [address] [place], [place] [address] PCP - General Family Medicine 07/04/25 documented as of this encounter
--- OUTSIDE RECORDS SUMMARY | 2025-07-11 04:29 | XMS_ITS | Encounter Summary ---
Author Organization [employer] ([place], [place], [place], [place], [place]) Address [address] [place] [address] Care Team Providers Care Electrical Intern Name Role Phone Robert Batista MD Primary Care Provider [phone] Encounter Details Date Type Department Care Team (Late st Contact Info) Description 12/27/2020 Transcribed Document [facility] [place] Family Medicine [address] [place] [address] ProviderMacrina MD [address] [place], [place] [address] Social History Tobacco Use Types Packs/Day Years Used Date Smoking Tobacco: Never Assessed Sex and Gender Information Value Date Recorded Sex Assigned at Not on file Legal Sex Male 1:13 PM CDT Gender Identity Not on file Sexual Orientation Not on file documented as of this encounter Miscellaneous Notes * Cerner Conversion Note - Macrina ProviderMD - 12/27/2020 6:03 PM CDT Nutrition [...] Nutrition Support Intake Status : Active Tamy Woflf Dietitian - 12/28/2020 11:41 EDT Nutrition Interventions [...] @ 20ml/hr AAT to goal @ 45ml/hr (+[id number], 62g pro). FW per MD goal: meet est needs 3. Once propofol off, increase Osmolite 1.5 to goal at 50ml/hr + 1 [id number] daily (provides 1710kcal, 83g PRO). Goal: meet est needs 4. Monitor elytes and replace prn Goal: wnls 5. Obtain wt 2x weekly goal: avoid sig wt changes Risk: High Nutrition Care Level : High Tamy Wolff Dietitian - 12/28/2020 12:19 EDT Electronically signed by Elmer [facility] Conversion Remote Medical Coder Cerner at 11/10/2022 9:09 AM CDT documented in this encounter Plan of Treatment Not on file documented as of this encounter Visit Diagnoses Not on filedocumented in this encounter Care Teams Electrical Intern Relationship Specialty Start Date End Date Robert Btaista MD [address] [place] [address] PCP - General Family Medicine 07/04/25 documented as of this encounter
--- OUTSIDE RECORDS SUMMARY | 2025-07-11 04:29 | XMS_ITS | Encounter Summary ---
Author Organization [employer] ([place], [place], [place], [place], [place]) Address [address] [place] [address] Care Team Providers Care Outdoor Adventure Leader Name Role Phone Robert Batista MD Primary Care Provider [phone] Encounter Details Date Type Department Care Team (Late st Contact Info) Description 12/27/2020 Transcribed Document [facility] [place] Family Medicine [facility] [address] ProviderMacrina MD [address] [place], [place] [id number] Social History Tobacco Use Types Packs/Day Years [...] 660ml of fluid was removed. Additionally, per carpenter labor supervisor staff underwent CPR staff he underwent CPR for 1 to 2 minutes. The patient was transferred ICU for close monitoring due to persistent hypotension. Approximately at 1049 AM on 12/27, hypotension worsen and became sustained bradycardic and subsequently sustained a PEA arrest. WICHO SIFUENTES was called. I responded to the CODE BLUE call, we started chest compressions, the patient [...] on filedocumented in this encounter Care Teams Outdoor Adventure Leader Relationship Specialty Start Date End Date Robert Batista MD [address] [place] [address] PCP - General Family Medicine 07/04/25 documented as of this encounter
--- OUTSIDE RECORDS SUMMARY | 2025-07-11 04:29 | XMS_ITS | Encounter Summary ---
Author Organization [employer] ([place], [place], [place], [place], [place]) Address [address] [place] [address] Care Team Providers Care Art Teacher Name Role Phone Robert Batista MD Primary Care Provider [phone] Encounter Details Date Type Department Care Team (Late st Contact Info) Description 01/02/2021 Transcribed Document [facility] Pulm & Critical Care Medicine [address] [place] [address] [place], [place] [address] [place] [address] [place] [address] [address] [place] [address] Social History Tobacco Use Types Packs/Day Years [...] Medical Aortic valve stenosis / SNOMED CT 591614201 / Confirmed At risk for sleep apnea / IMO 06669814 / Confirmed Colorectal surgery / SNOMED CT 0124283231 / Confirmed HTN - Hypertension / SNOMED CT 0875233002 / Confirmed, Active Problems (13) Aortic stenosis, [...] Labs (Last four charted values) WBC 9.0 (JAN 02) H 11.7 (DEC 08) H 13.4 (DEC 07) H 13.1 (DEC 06) HB L 7.7 (DEC 09) L 8.7 (DEC 08) L 8.8 (DEC 07) L 8.4 (DEC 07) HCT L 24.1 (DEC 09) L 26.5 (DEC 08) L 26.2 (DEC 07) L 25.8 (DEC 07) Plt 163 (DEC 09) L 146 (DEC 08) L 108 (DEC 07) L 60 (DEC 06) Na 143 (DEC 09) 143 (DEC 08) 142 (DEC 07) 141 (DEC 07) K 3.7 (CESAR 09) 3.6 (CESAR 08) L 3.3 (DEC 07) 3.8 (DEC 07) Cl 111 (CESAR 09) 108 (CESAR 08) 107 (CESAR 07) 108 (DEC 07) CO2 31 (DEC 09) 28 (DEC 08) 27 (DEC 07) 28 (CESAR 07) BUN H 39 (CESAR 09) H 26 (CESAR 08) H 25 (CESAR 07) H 28 (CESAR 07) Cr 0.80 (CESAR 09) 0.70 (CESAR 08) 0.80 (CESAR 07) 0.70 (CESAR 07) Glu R H 129 (CESAR 09) [...] 06) L 2.4 (CESAR 05) Troponin <0.015 (CESAR 01) . Blood Gases [...] 01/02/2021 04:50 Radiology Results (Last 48 hours) [id number] -- 12/27/2020 06:39 CR Chest 1 Vw [...] Dr. Bebeto Avelar.Transcribed by [place] PA-C, RAdan (N), Kieran Lerma.I have personally viewed, interpreted [...] Dr. Bebeto Avelar.Transcribed by [place] PA-C, REugene. (N), Kieran Lester M T.I have personally [...] team, including critical care team, CCRN, RT., Transportation Project Manager , case management and clinical pharmacist. I [...] on filedocumented in this encounter Care Teams Art Teacher Relationship Specialty Start Date End Date Robert Batista MD [address] [place] [address] PCP - General Family Medicine 07/04/25 documented as of this encounter
--- OUTSIDE RECORDS SUMMARY | 2025-07-11 04:29 | XMS_ITS | Encounter Summary ---
Author Organization [employer] ([place], [place], [place], [place], [place]) Address [address] [place] [address] Care Team Providers Care English Professor Name Role Phone Robert Batista MD Primary Care Provider [phone] Encounter Details Date Type Department Care Team (Late st Contact Info) Description 01/02/2021 Transcribed Document [facility] [place] Family Medicine [facility] [address] ProviderMacrina MD [address] [place] [address] Social History Tobacco Use Types Packs/Day Years Used Date Smoking Tobacco: Never Assessed Sex and Gender Information Value Date Recorded Sex Assigned at Not on file Legal Sex Male 1:13 PM CDT Gender Identity Not on file Sexual Orientation Not on file documented as of this encounter Miscellaneous Notes * Cerner Conversion Note - Macrina ProviderMD - 01/02/2021 10:[address] [...] on filedocumented in this encounter Care Teams English Professor Relationship Specialty Start Date End Date Batista, Robert C, MD [address], [place] [address] PCP - General Family Medicine 07/04/25 documented as of this encounter
--- OUTSIDE RECORDS SUMMARY | 2025-07-11 04:29 | XMS_ITS | Encounter Summary ---
Author Organization [employer] ([place], [place], [place], [place], [place]) Address [address] [place] [address] Care Team Providers Care Car Pre Cooler Name Role Phone Robert Batista MD Primary Care Provider [phone] Encounter Details Date Type Department Care Team (Late st Contact Info) Description 01/07/2021 Transcribed Document [facility] [place] [facility] [place] [address] ProviderMacrina MD [address] [place] [id number] Social History Tobacco Use Types Packs/Day Years [...] MCG/KG/. Awake and following commands, positive banquet set up person in bilateral hands. MRI brain yesterday revealed [...] 180s. 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 but weaker on [...] Problems Aortic valve stenosis / SNOMED CT 113584790 / Confirmed Arthritis of right knee / SNOMED CT 9795630900 / Confirmed At risk for sleep apnea / IMO 35268233 / Confirmed Chronic anxiety / SNOMED CT 391764234 / Confirmed Back pain, chronic / SNOMED CT 536855729 / Confirmed Colorectal surgery / SNOMED CT 8905957042 / Confirmed Disorder of prostate / SNOMED CT 30619394 / Confirmed GERD - Gastro-esophageal reflux disease / SNOMED CT 3950177912 / Confirmed H/O peripheral neuropathy / SNOMED CT 436397279 / Confirmed feet tingle all the time HTN - Hypertension / SNOMED CT 3296701062 / Confirmed Hyperlipidemia / SNOMED CT 38574041 / Confirmed Hypertension / SNOMED CT 94098855 / Confirmed Aortic stenosis, severe / SNOMED CT 6253970320 / Confirmed Resolved: Cancer of colon / SNOMED CT 4884351297, Active Problems (13) Aortic stenosis, severe Aortic valve stenosis Arthritis of right knee At risk for sleep apnea Back pain, chronic Chronic anxiety Colorectal surgery Disorder of prostate GERD - Gastro-esophageal reflux disease H/O peripheral neuropathy HTN - Hypertension Hyperlipidemia Hypertension Physical Examination VS/Measurements Vitals Signs (last 24 hrs) Last Charted Minimum Maximum Apical HR 99 (DEC 14 11:55) 99 (DEC 14 11:55) H 120 (DEC 14 00:38) Mon HR 98 (DEC 14 15:00) 96 (DEC 14 13:00) 124 (DEC 13 23:30) Resp Rate H 28 (DEC 14 15:00) 15 (DEC 13 22:00) H 44 (DEC 14 12:00) SBP H 154 (DEC 14 15:00) 90 (DEC 13 22:00) H 178 (DEC 14 12:00) DBP 82 (DEC 14 15:00) L 53 (DEC 13 22:00) H 123 (DEC 14 14:00) MAP 132 (DEC 14 14:00) 68 (DEC 13 22:00) 132 (DEC 14 14:00) SpO2 94 (DEC 14 15:00) L 92 (DEC 13 19:00) 100 (DEC 13 16:12) Intake & Output Totals Last [...] 24 Hours) Radiology Results (Last 48 hours) [id number] -- 12/27/2020 06:39 CR Chest 1 Vw [...] filedocumented in this encounter Care Teams Car Pre Cooler Relationship Specialty Start Date End Date Robert Batista MD [address], [place] [phone] PCP - General Family Medicine 07/04/25 documented as of this encounter
--- OUTSIDE RECORDS SUMMARY | 2025-07-11 04:29 | XMS_ITS | Encounter Summary ---
Author Organization [facility] ([place], [place], [place], [place], [place]) Address [address] [place] [address] Care Team Providers Care Licensed Massage Practitioner Name Role Phone Robert Batista MD Primary Care Provider [phone] Encounter Details Date Type Department Care Team (Late st Contact Info) Description 12/27/2020 Transcribed Document [facility] [place] [address] ProviderMacrina MD [address] [place] [phone] Social History Tobacco Use Types Packs/Day Years Used Date Smoking Tobacco: Never Assessed Sex and Gender Information Value Date Recorded Sex Assigned at Not on file Legal Sex Male 1:13 PM CDT Gender Identity Not on file Sexual Orientation Not on file documented as of this encounter Miscellaneous Notes * Cerner Conversion Note - Macrina Cordova MD - 12/27/2020 2:44 PM CDT Patient: JOES ADORNO Age: 80 years [...] pulse oximetry). Findings: chest x-ray pending . Electronically signed by Elmer, [facility] Conversion Family Consumer Science Teacher Cerner at 11/10/2022 9:06 AM CDT documented in this encounter Plan of Treatment Not on file documented as of this encounter Visit Diagnoses Not on filedocumented in this encounter Care Teams Licensed Massage Practitioner Relationship Specialty Start Date End Date Robert Batista MD [address], [place] [address] PCP - General Family Medicine 07/04/25 documented as of this encounter
--- OUTSIDE RECORDS SUMMARY | 2025-07-11 04:29 | XMS_ITS | Encounter Summary ---
Author Organization [employer] ([place], [place], [place], [place], [place]) Address [address] [place] [address] Care Team Providers Care Senior Electrical Design Engineer Name Role Phone Robert Batista MD Primary Care Provider [phone] Encounter Details Date Type Department Care Team (Late st Contact Info) Description 01/07/2021 Transcribed Document [facility] Cardiology [address] [place] [id number] [place] [address] [place] [address] [address] [place] [address] Social History Tobacco Use Types Packs/Day Years Used Date Smoking Tobacco: Never Assessed Sex and Gender Information Value Date Recorded Sex Assigned at Not on file Legal Sex Male 1:13 PM CDT Gender Identity Not on file Sexual Orientation Not on file documented as of this encounter Miscellaneous Notes * Cerner Conversion Note - Arthur Gomez MD - 01/07/2021 8:45 AM EDT Patient: JOSE ADORNO Age: 80 years Sex: Male : 1940 Associated Diagnoses: None Author: ARTHUR GOMEZ MD-CAR Basic Information PCP: Robert Batista MD Primary Assurance Sourcing Manager: Arthur Gomez MD Subjective Extubated 01/05/21, sitting in [...] 12 (JAN 06 09:00) H 36 (JAN 07:08) SBP 131 (JAN 07 05:00) 90 (JAN 06 22:00) H 177 (JAN 06 16:00) DBP 66 (JAN 07 05:00) L 53 (JAN 06 22:00) 85 (JAN 06 23:30) MAP 92 (JAN 07 05:) 68 (JAN 06 22:00) 120 (JAN 06 16:00) SpO2 99 (JAN 07:) L 92 (JAN 06 19:00) 100 (JAN [...] (Current Encounter/Past 24 Hours) ProBNP 5653 pg/mL IA 01/07/2021 05:56 Radiology Results (Last 48 hours) [id number] -- 12/27/2020 06:39 CT Thoracentesis w/ IMAG Guid RT (01/05/2021 11:30) Result: CT-GUIDED THORACENTESISHISTORY: Pleural effusion.ATTENDING PHYSICIAN: Dr. Youssef LEAD INVESTIGATOR: ANAYA CantorCTECHNIQUE: Informed consent was obtained from [...] s/p pericardiocentesis and surgical repair of LV [place]. PEA Arrest; CODE called 10 minutes to [...] on filedocumented in this encounter Care Teams Senior Electrical Design Engineer Relationship Specialty Start Date End Date Robert Batista MD [address] [place] [address] PCP - General Family Medicine 07/04/25 documented as of this encounter
--- OUTSIDE RECORDS SUMMARY | 2025-07-11 04:29 | XMS_ITS | Encounter Summary ---
Author Organization [facility] ([place], [place], [place], [place], [place]) Address [address] [place] [address] Care Team Providers Care Visual Merchandising Manager Name Role Phone Robert Batista MD Primary Care Provider [phone] Encounter Details Date Type Department Care Team (Late st Contact Info) Description 01/02/2021 Transcribed Document [facility] [address] [place] [address] Abby Rodrigues MD [address] [place] [address] Social History Tobacco Use Types Packs/Day Years [...] Basic Information PCP: Robert Batista MD Primary Vessel Scrapper: Arthur Gomez MD Subjective Patient seen and [...] 24 Hours) Radiology Results (Last 48 hours) [id number] -- 12/27/2020 06:39 CR Abdomen 1 Vw [...] Dr. Bebeto Avelar.Transcribed by [place] PA-C, R.TBeatrice (N), Kieran Bishop T.I have personally viewed, [...] Dr. Bebeto Avelar.Transcribed by [place] PA-C, RBeatriceTBeatrice (N), C N [place] T.I have personally viewed, interpreted and dictated [...] s/p pericardiocentesis and surgical repair of LV [place]. PEA Arrest; CODE called 10 minutes to [...] on filedocumented in this encounter Care Teams Visual Merchandising Manager Relationship Specialty Start Date End Date Robert Batista MD [address] [place] [phone] PCP - General Family Medicine 07/04/25 documented as of this encounter
--- OUTSIDE RECORDS SUMMARY | 2025-07-11 04:29 | XMS_ITS | Encounter Summary ---
Author Organization [employer] ([place], [place], [place], [place], [place]) Address [address] [place] [address] Care Team Providers Care On Site Wastewater Systems Technician Name Role Phone Robert Batista MD Primary Care Provider [phone] Encounter Details Date Type Department Care Team (Late st Contact Info) Description 12/29/2020 Transcribed Document [facility] [place] [facility] [place] [address] ProviderMacrina MD [address] [place] [address] Social History Tobacco Use Types [...] 12/29/2020 17:37 EDT Electronically signed by Elmer [facility] Conversion Inspector Line Cerner at 11/10/2022 9:12 AM CDT documented in this encounter Plan of Treatment Not on file documented as of this encounter Visit Diagnoses Not on filedocumented in this encounter Care Teams On Site Wastewater Systems Technician Relationship Specialty Start Date End Date Robert Batista MD [address] [place], [place] [address] PCP - General Family Medicine 07/04/25 documented as of this encounter
--- OUTSIDE RECORDS SUMMARY | 2025-07-11 04:29 | XMS_ITS | Encounter Summary ---
Author Organization [employer] ([place], [place], [place], [place], [place]) Address [address] [place] [address] Care Team Providers Care Cullet Crusher And Washer Name Role Phone Robert Batista MD Primary Care Provider [phone] Encounter Details Date Type Department Care Team (Late st Contact Info) Description 01/07/2021 Transcribed Document [facility] [place] [facility] [place] [address] ProviderMacrina MD [address] [place] [address] Social History Tobacco Use Types Packs/Day Years Used Date Smoking Tobacco: Never Assessed Sex and Gender Information Value Date Recorded Sex Assigned at Not on file Legal Sex Male 1:13 PM CDT Gender Identity Not on file Sexual Orientation Not on file documented as of this encounter Miscellaneous Notes * Cerner Conversion Note - Macrina ProviderMD - 01/07/2021 10:25 AM CDT DIE FILER Note Entered On: 01/17/2021 9:21 EDT Performed On: 01/17/2021 9:21 EDT by JUAN MANUEL BRUMFIELD SLP Pain Assessment Pain Scaled Used : FACES Pain Score Pre-Intervention : 2 JUAN MANUEL BRUMFIELD DIE FILER - 01/17/2021 9:19 EDT Image 1 - [...] Nguyen maneuver (Comment: unable [JUAN MANUEL BRUMFIELD [facility] 01/17/2021 10:52 EDT] ) Dysphagia Therapy/Treatment Type #3 : Joseluis maneuver (Comment: unable [JUAN MANUEL BRUMFIELD [facility] 01/17/2021 10:52 EDT] ) Dysphagia Therapy/Treatment Type #4 : Laryngeal elevation exercises (Comment: falsetto - limited accuracy [JUAN MANUEL BRUMFIELD [facility] 01/17/2021 10:52 EDT] ) Dysphagia Therapy/Tx # Possible Resp #4 : 5 Dysphagia Therapy/Tx # Correct Resp #4 : 2 Dysphagia Therapy/Tx # % Accuracy #4 : 40 % JUAN MANUEL BRUMFIELD [facility] 01/17/2021 10:52 EDT Motor Speech 6-10 Syllable Phrase/Sentence Repetition : Articulatory imprecision, Distorted vowels, Groping, Increased error with increased complexity 6-10 Syllable Phrase, # Poss Responses : 14 (Comment: 2 reps of 14 phrases. [JUAN MANUEL BRUMFIELD [facility] 01/17/2021 10:52 EDT] ) JUAN MANUEL BRUMFIELD [place] 0899801/17/2021 10:52 EDT Verbal Expression Divergent Naming #1 Task : Emmett Divergent Naming #1 # Possible : 10 Divergent Naming #1 # Correct : 10 Divergent Naming #1 Time : 60 Second(s) Divergent Naming #2 Task : Emmett Divergent Naming #2 # Possible : 15 Divergent Naming #2 # Correct : 12 Divergent Naming #2 Time : 60 Second(s) Divergent Naming #3 Task : Emmett Divergent Naming #3 # Possible : 15 [...] % : 88.3 % JUAN MANUEL BRUMFIELD [facility] 01/17/2021 10:52 EDT Problem Solving Simple Solving: [...] Pct : 100 % JUAN MANUEL BRUMFIELD SLP - 01/17/2021 10:52 EDT Swallow Plan/Goals Swallow LTG Grid DIE FILER Usp Goal #1 DIE FILER Seat Mender Goal #2 Swallow LTG : Establish safe oral diet without aspiration Improve swallowing function for oral intake Status : Progressing, continue Progressing, continue JUAN MANUEL BRUMFIELD, DIE FILER - 01/17/2021 10:52 EDT JUAN MANUEL BRUMFIELD, DIE FILER - 01/17/2021 10:52 EDT Swallow Goals Grid [...] : 01/10/2021 EDT 01/10/2021 EDT JUAN MANUEL BRUMFIELD SLP - 01/17/2021 10:52 EDT JUAN MANUEL BRUMFIELD, DIE FILER - 01/17/2021 10:52 EDT JUAN MANUEL BRUMFIELD, [facility] - 01/17/2021 10:52 EDT JUAN MANUEL BRUMFIELD, [facility] - 01/17/2021 10:52 EDT Goal #5 Goal [...] - 01/17/2021 10:52 EDT JUAN MANUEL BRUMFIELD, DIE FILER - 01/17/2021 10:52 EDT JUAN MANUEL BRUMFIELD, DIE FILER - 01/17/2021 10:52 EDT JUAN MANUEL BRUMFIELD, DIE FILER - 01/17/2021 10:52 EDT Goal #9 Swallow STG : Other: Pt goal: I want to go home Related To : Date to Meet : Status : Date Met : JUAN MANUEL BRUMFIELD SLP - 01/17/2021 10:52 EDT LTG Lang/Comm/Cog LTG DIE FILER Seat Mender Goal 1 Usp Goal 2 Goals : Improved memory in order to complete functional task(s) upon discharge Improved problem solving in order to complete functional task(s) upon discharge Status : Progressing, continue Progressing, continue JUAN MANUEL BRUMFIELD SLP - 01/17/2021 10:52 EDT JUAN MANUEL BRUMFIELD, DIE FILER - 01/17/2021 10:52 EDT STG Lang_Comm_Cog DIE FILER Education STG Grid Goal #1 Activity : [...] - 01/17/2021 10:52 EDT JUAN MANUEL BRUMFIELD, BENJY - 01/17/2021 10:52 EDT JUAN MANUEL BRUMFIELD, DIE FILER - 01/17/2021 10:52 EDT Subjective/Assessment/Plan DIE FILER Patient Concern : Pt awake in bed DIE FILER Therapy/Treatment Asmt Cmnt : Patient seen for [...] in conversation. Improved cognitive performance overall today DIE FILER Plan : PEG placement later today. ST will see 01/18 JUAN MANUEL BRUMFIELD SLP - 01/17/2021 10:52 EDT Education Individuals Taught : Patient JUAN MANUEL BRUMFIELD SLP - 01/17/2021 10:52 EDT DIE FILER Education Assessment Grid 1 Aspiration : Needs further teaching Dysphagia : Needs further teaching JUAN MANUEL BRUMFIELD SLP - 01/17/2021 10:[address] DIE FILER Charges Treatment-Swallowing : 1 ST Development of [...] on filedocumented in this encounter Care Teams Cullet Crusher And Washer Relationship Specialty Start Date End Date Robert Batista MD [address] [place], [place] [phone] PCP - General Family Medicine 07/04/25 documented as of this encounter
--- OUTSIDE RECORDS SUMMARY | 2025-07-11 04:29 | XMS_ITS | Encounter Summary ---
Author Organization [employer] ([place], [place], [place], [place], [place]) Address [address] [place] [address] Care Team Providers Care Consolidator Name Role Phone Robert Batista MD Primary Care Provider [phone] Encounter Details Date Type Department Care Team (Late st Contact Info) Description 12/29/2020 Transcribed Document [facility] [place] [facility] [place] [address] ProviderMacrina MD [address] [place], [place] [id number] Social History Tobacco Use Types Packs/Day Years [...] 101 (DEC 29 05:00) SpO2 99 (DEC 29:05) L 85 (DEC 28 11:03) 100 (DEC [...] on filedocumented in this encounter Care Teams Consolidator Relationship Specialty Start Date End Date Robert Batista MD [address] [place] [phone] PCP - General Family Medicine 07/04/25 documented as of this encounter
--- OUTSIDE RECORDS SUMMARY | 2025-07-11 04:29 | XMS_ITS | Encounter Summary ---
Author Organization [employer] ([place], [place], [place], [place], [place]) Address [address] [place] [address] Care Team Providers Care Hvac Maintenance Technician Name Role Phone Robret Batista MD Primary Care Provider [phone] Encounter Details Date Type Department Care Team (Late st Contact Info) Description 01/02/2021 Transcribed Document [facility] [place] [facility] [place] [address] ProviderMacrina MD [address] [place], [place] [id number] Social History Tobacco Use Types Packs/Day Years [...] follow. Electronically signed by Olinda Payne Conversion Learning And Development Consultant Cerner at 11/10/2022 9:26 AM CDT documented in this encounter Plan of Treatment Not on file documented as of this encounter Visit Diagnoses Not on filedocumented in this encounter Care Teams Hvac Maintenance Technician Relationship Specialty Start Date End Date Robert Batista MD [address] [place] [phone] PCP - General Family Medicine 07/04/25 documented as of this encounter
--- OUTSIDE RECORDS SUMMARY | 2025-07-11 04:29 | XMS_ITS | Encounter Summary ---
Author Organization [employer] ([place], [place], [place], [place], [place]) Address [address] [place] [address] Care Team Providers Care Crib Pad Maker Name Role Phone Robert Batista MD Primary Care Provider [phone] Encounter Details Date Type Department Care Team (Late st Contact Info) Description 01/02/[address] [facility] [place] [address] [place] [address] ProviderMacrina MD [address] [place], [place] [...] Conversion Note - Macrina ProviderMD - 01/02/2021 5:00 PM CDT Chart [...] on filedocumented in this encounter Care Teams Crib Pad Maker Relationship Specialty Start Date End Date Robert Batista MD [place], [place] [phone] PCP - General Family Medicine 07/04/25 documented as of this encounter
--- OUTSIDE RECORDS SUMMARY | 2025-07-11 04:29 | XMS_ITS | Encounter Summary ---
Author Organization [employer] ([place], [place], [place], [place], [place]) Address [address] [place] [address] Care Team Providers Care Clerk Travel Reservations Name Role Phone Robert Batista MD Primary Care Provider [phone] Encounter Details Date Type Department Care Team (Late st Contact Info) Description 12/30/2020 Transcribed Document [facility] [place] [address] [place] [address] ProviderMacrina MD [address] [place] [address] Social History Tobacco Use Types Packs/Day Years Used Date Smoking Tobacco: Never Assessed Sex and Gender Information Value Date Recorded Sex Assigned at Not on file Legal Sex Male 1:13 PM CDT Gender Identity Not on file Sexual Orientation Not on file documented as of this encounter Miscellaneous Notes * Cerner Conversion Note - Macrina ProviderMD - 12/30/2020 5:00 AM CDT Chart Check - Review Order Profile Entered On: 12/30/2020 6:41 EDT Performed On: 12/30/2020 5:00 EDT by RON URENA, RN Chart Check Powerplans Initiated/Discontinued as Appropriate : Yes All Active Orders Reviewed : Yes RON URENA RN - 12/30/2020 6:41 EDT Electronically signed by Elmer [facility] Conversion Tape Deck Installer Cerner at 11/10/2022 9:07 AM CDT documented in this encounter Plan of Treatment Not on file documented as of this encounter Visit Diagnoses Not on filedocumented in this encounter Care Teams Clerk Travel Reservations Relationship Specialty Start Date End Date Robert Batista MD [address] [place], [place] [phone] PCP - General Family Medicine 07/04/25 documented as of this encounter
--- OUTSIDE RECORDS SUMMARY | 2025-07-11 04:29 | XMS_ITS | Encounter Summary ---
Author Organization [employer] ([place], [place], [place], [place], [place]) Address [address] [place] [address] Care Team Providers Care Service Greeter Name Role Phone Robert Batista MD Primary Care Provider [phone] Encounter Details Date Type Department Care Team (Late st Contact Info) Description 01/07/2021 Transcribed Document [facility] [place] [facility] [place] [address] ProviderMacrina MD [address] [place] [address] Social History Tobacco Use Types Packs/Day Years [...] 1012. 01/02/21: POD#6 Intubated and sedated on [id number]/hr and Precedex .6mcg/kg/min. He is also on [...] Pre-Op Diagnosis, Medical. Electronically signed by Interface, [facility] Conversion Researcher Cerner at 11/10/2022 9:14 AM CDT documented in this encounter Plan of Treatment Not on file documented as of this encounter Visit Diagnoses Not on filedocumented in this encounter Care Teams Service Greeter Relationship Specialty Start Date End Date Robert Batista MD [address] [place] [phone] PCP - General Family Medicine 07/04/25 documented as of this encounter
--- OUTSIDE RECORDS SUMMARY | 2025-07-11 04:29 | XMS_ITS | Encounter Summary ---
Author Organization [employer] ([place], [place], [place], [place], [place]) Address [address] [place] [address] Care Team Providers Care Carton Forming Machine Helper Name Role Phone Robert Batista MD Primary Care Provider [phone] Encounter Details Date Type Department Care Team (Late st Contact Info) Description 01/02/2021 Transcribed Document [facility] [place] [address] [place] [address] ProviderMacrina MD [address] [place] [address] Social History Tobacco Use Types Packs/Day Years Used Date Smoking Tobacco: Never Assessed Sex and Gender Information Value Date Recorded Sex Assigned at Not on file Legal Sex Male 1:13 PM CDT Gender Identity Not on file Sexual Orientation Not on file documented as of this encounter Miscellaneous Notes * Cerner Conversion Note - Macrina ProviderMD - 01/02/2021 10:35 AM CDT Therapy [...] ARIANE PIERCE, PT - 01/02/2021 10:35 EDT Electronically signed by Elmer [facility] Conversion Billet Worker Cerner at 11/10/2022 9:08 AM CDT documented in this encounter Plan of Treatment Not on file documented as of this encounter Visit Diagnoses Not on filedocumented in this encounter Care Teams Carton Forming Machine Helper Relationship Specialty Start Date End Date Robert Batista MD [address] [place] [place] [place] [phone] PCP - General Family Medicine 07/04/25 documented as of this encounter
--- OUTSIDE RECORDS SUMMARY | 2025-07-11 04:29 | XMS_ITS | Clinical Summary ---
Author Organization [facility] Address [address] [place] [address] Phone Care Team Providers Care Airborne Weapons Technical Manager Name Role Phone Andre DAILY, Ben Unavailable [phone] PERICO AWAN MD Primary Care Provider [phone] Reason for Referral 05/01/2022 Encounter for Follow Up Date Recorded Target Due Date Referral Type Referring Prov ider Reason For Referral 05/01/2022 Ben Powell MD referr al to physician Last Documented On 2 9:00AM ; [facility] 05/01/2022 Ben Powell MD referr al to physician Last Documented On 2 9:02AM ; [facility] Reason for Visit and Chief Complaint The Chief Complaint is: lower back pain Problems Includes: Problems addressed during this encounter and other active Problems Current Visit Onset Date Date of Diagnosis Resolved Date Provider Condition Status Lower Back Pain 09/23/2021 09/23/2021 DOMINIQUE CADET PA-C Active Last Documented On 5 1:41AM ; [facility] Plan of Treatment Fall Risk [...] - Last Documented On 05/01/2022 9:37AM ; [facility], [facility] Pending Tests Order Diagnosis Results Due Ordering P rovider Radiology - CT Scan Pelvis 02/27/22 Ben Powell MD Last Documented On 2 8:42AM ; [facility] Assessments Includes: Assessments from this encounter Findings 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 - Last Documented On 05/01/2022 9:37AM ; [facility] Right sacral iliac joint arthropathy. - Last Documented On 05/01/2022 9:37AM ; [facility] Medical Equipment - Implanted Devices Includes: Current Devices No Medical Equipment Recorded Medications Includes: Medications discussed during this encounter and other current Medications Current Medications (continue as prescribed) Lidocaine 5% External Patch 10/30/2021 Provider: PERICO AWAN MD Diagnosis: Last Documented On 2 10:32AM By Aleida Haile ; [facility] Atorvastatin Calcium 40 MG Oral Tablet 10/16/2021 Pr ovider: PERICO AWAN MD Diagnosis: Last Documented On 2 10:32AM By Aleida Haile ; [facility] amLODIPine Besylate 5 MG Oral Tablet 09/27/2021 Prov ider: PERICO AWAN MD Diagnosis: Last Documented On 2 10:32AM By Aleida Haile ; [facility] Gabapentin 300 MG Oral Capsule 09/02/2021 Provider: BRUCE QUIJANO MD (N) Diagnosis: Last Documented On 2 2:24PM By Asia Toscano ; [facility] Lisinopril 10 MG Oral Tablet 07/27/2021 Provider: PERICO AWAN MD Diagnosis: Last Documented On 2 2:24PM By Asia Toscano ; [facility] Medications Administered Includes: Administered Medications from this encounter No Administered Medications Recorded Vital Signs Includes: Vital Signs from this encounter Vital Name 05/01/2022 09:07A Blood Pressure Sitting (mmHg) 150/86 Pulse Rate-Sitting (bpm) 69 Height (in) 68 Weight (lb) 133.2 Body Mass Index (kg/m2) 20.3 Body Surface Area (m2) 1.7 Note: rd Last Documented: On 05/01/2022 9:07AM ; [facility] Results Includes: Results discussed during this encounter No Results Recorded For Specified Dates History of Present Illness Includes: History of Present Illness from this encounter HPI Francesco Adorno is an 81 year old male. [...] 05/01/2022 Last Documented On 2 9:37AM ; [facility] Tobacco non-user 05/01/2022 Last Documented On 2 9:37AM ; [facility] No caffeine use 09/23/2021 Last Documented On 2 8:58AM ; [facility] No recent change in diet 09/23/2021 Last Documented On 2 8:58AM ; [facility] Not a current smoker. 09/23/2021 Last Documented On 2 8:58AM ; [facility] Not exercising regularly 09/23/2021 Last Documented On 2 8:58AM ; [facility] Not using alcohol 09/23/2021 Last Documented On 2 8:58AM ; [facility] Not using drugs 09/23/2021 Last Documented On 2 8:58AM ; [facility] Sex - Male 05/28/2022 Last Documented On 2 9:12PM ; [facility] Smoking Status Unknown Procedures and Surgical History Includes: Procedures from this encounter Procedures Code Diagnosis Performing Provider Service L ocation Service Date use of tobacco assessment performed 1000F Last Documented On 2 9:00AM ; [facility] patient screened for future fall risk 3288F Last Documented On 2 9:00AM ; [facility] patient screened for future fall risk: documentation of any fall with injury in past year 1100F Last Documented On 2 9:00AM ; [facility] follow-up visit in one month with PCP fo r elevated BP Last Documented On 2 9:00AM ; [facility] follow-up visit in one month Last Documented On 2 9:02AM ; [facility] referral to physician Last Documented On 2 9:00AM ; [facility] referral to physician Last Documented On 2 9:02AM ; [facility] an X-ray was performed 06/06/2021 Humza SI Joint @ H ~06/06/2021 Pelvis @ [facility] [id number] Last Documented On 2 9:00AM ; [facility] a CT scan was performed 07/27 LT Hip WO @ [facility] ~03/04/2022 Pelvis/L SI Block @ [id number] Last Documented On 2 9:00AM ; [facility] Surgical History Last Updated History of back surgery 09/23/2021 Last Documented On 2 8:58AM ; [facility] History of heart surgery 09/23/2021 Last Documented On 2 8:58AM ; [facility] Medical History Includes: Medical History addressed during this encounter Description 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 05/01/2022 Last Documented On 2 9:37AM ; [facility] 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 05/01/2022 Last Documented On 2 9:37AM ; [facility] Past Surgical History: feeding tube ~mead d sx ~ 05/01/2022 Last Documented On 2 9:37AM ; [facility] Recent immunization for flu 04/26/2021 0 11/07/2021 Last Documented On 2 8:58AM ; [facility] Recent immunization for pneumococcal pne umonia 2019 11/07/2021 Last Documented On 2 8:58AM ; [facility] Family History Includes: Family History addressed during this encounter Description Last Updated No significant family history 09/23/2021 Last Documented On 2 8:58AM ; [facility] Review of Systems Includes: Review of [...] encounter Description No anxiety Last Documented On 9:00AM ; [facility] Physical Exam Includes: Physical Exam from this encounter Allergies Includes: Active Allergies No Known Allergies Care Airborne Weapons Technical Manager Name (Identifier) Role/Relation Location/Telecom Last Documented By Ben Powell MD ([id number]) Assigned practitioner (occupation) tel:[phone] Last Documented On 05/28/2022 9:12PM ; [facility] PERICO AWAN MD ([id number]) Primary care physician (occupation) [address] [place] [address], [id number] tel:[phone] Last Documented On 05/28/2022 9:12PM ; [facility] Encounters Encounter Provider Location (Healthcare Service Location) Date Check-In Time Check-Out Time Diagnosis Encounter Disposition Follow Up Ben [facility] 2021 8:52AM 9:21AM Payer Includes: Active Insurance Policies Plan Name (Payer ID) Coverage Type Member ID Group # Subscriber (ID) Relationship Effective Dates 1 - Medicare Part B [facility] ([id number]) [id number] Francesco Adorno Self Last Documented On 2 12:25PM ; [facility] 2 - [employer] ([id number]) [id number] Francesco Adorno Self - Unknown Last Documented On 2 2:19PM ; [facility]
--- OUTSIDE RECORDS SUMMARY | 2025-07-11 04:29 | XMS_ITS | Encounter Summary ---
Author Organization [employer] ([place], [place], [place], [place], [place]) Address [address] [place] [address] Care Team Providers Care Nail Tech Name Role Phone Robert Batista MD Primary Care Provider [phone] Encounter Details Date Type Department Care Team (Late st Contact Info) Description 12/27/2020 Transcribed Document [facility] [place] Family Medicine [address] [place] [address] ProviderMacrina MD [address] [place] [address] Social History Tobacco Use Types [...] on filedocumented in this encounter Care Teams Nail Tech Relationship Specialty Start Date End Date Robert Batista MD [address], [place] [address] PCP - General Family Medicine 07/04/25 documented as of this encounter
--- OUTSIDE RECORDS SUMMARY | 2025-07-11 04:29 | XMS_ITS | Encounter Summary ---
Author Organization [employer] ([place], [place], [place], [place], [place]) Address [address] [place] [address] Care Team Providers Care Intermediate Project Manager Name Role Phone Robert Batista MD Primary Care Provider [phone] Encounter Details Date Type Department Care Team (Late st Contact Info) Description 01/03/2021 Transcribed Document [facility] [place] Family Medicine [facility] [place] [address] ProviderMacrina MD [address] [place] [address] Social History Tobacco Use Types Packs/Day Years [...] 1012. 01/02/21: POD#6 Intubated and sedated on [id number]/hr and Precedex .6mcg/kg/min. He is also on [...] Non-distended, Normal bowel sounds. Integumentary: Warm, Dry, [place]. Neurologic: The pt is able to move [...] - Pre-Op Diagnosis, Medical. Electronically signed by [facility], [facility] Conversion Billing And Insurance Coordinator [employer] at 11/10/2022 9:17 AM CDT documented in this encounter Plan of Treatment Not on file documented as of this encounter Visit Diagnoses Not on filedocumented in this encounter Care Teams Intermediate Project Manager Relationship Specialty Start Date End Date Robert Batista MD [address] [place], [place] [address] PCP - General Family Medicine 07/04/25 documented as of this encounter
--- OUTSIDE RECORDS SUMMARY | 2025-07-11 04:29 | XMS_ITS | Encounter Summary ---
Author Organization [employer] ([place], [place], [place], [place], [place]) Address [address] [place] [address] Care Team Providers Care Floor Care Specialist Name Role Phone Robert Batista MD Primary Care Provider [phone] Encounter Details Date Type Department Care Team (Late st Contact Info) Description 01/02/2021 Transcribed Document [facility] [place] [facility] [place] [address] ProviderMacrina MD [address] [place], [place] [id number] Social History Tobacco Use Types Packs/Day Years Used Date Smoking Tobacco: Never Assessed Sex and Gender Information Value Date Recorded Sex Assigned at Not on file Legal Sex Male 1:13 PM CDT Gender Identity Not on file Sexual Orientation Not on file documented as of this encounter Miscellaneous Notes * [employer] Conversion Note - Macrina ProviderMD - 01/02/2021 5:19 PM CDT Spiritual [...] on filedocumented in this encounter Care Teams Floor Care Specialist Relationship Specialty Start Date End Date Robert Batista MD [address], [place] [address] PCP - General Family Medicine 07/04/25 documented as of this encounter
--- OUTSIDE RECORDS SUMMARY | 2025-07-11 04:29 | XMS_ITS | Encounter Summary ---
Author Organization [email or web address] ([place], [place], [place], [place], [place]) Address [address] [place] [address] Care Team Providers Care Vehicle Insurance Agent Name Role Phone Robert Batista MD Primary Care Provider [phone] Encounter Details Date Type Department Care Team (Late st Contact Info) Description 12/27/2020 Transcribed Document [facility] [facility] [place] [address] ProviderMacrina MD [address] [place], [place] [id number] Social History Tobacco Use Types Packs/Day Years [...] : Code Referral Reason Comment : Code blue [facility] Provided to : Family/Significant other BRISSA SULLIVAN [...] Feelings expressed, Hope strengths identified Spiritual and Adventist : Prayer shared, Spiritual/Adventist support provided BRISSA SULLIVAN - 12/27/2020 12:08 EDT Electronically signed by [place], [facility] Conversion Pipe Stem Sawyer Cerner at 11/10/2022 9:07 AM CDT documented in this encounter Plan of Treatment Not on file documented as of this encounter Visit Diagnoses Not on filedocumented in this encounter Care Teams Vehicle Insurance Agent Relationship Specialty Start Date End Date Robert Batista MD [address] [place] [address] PCP - General Family Medicine 07/04/25 documented as of this encounter
--- OUTSIDE RECORDS SUMMARY | 2025-07-11 04:29 | XMS_ITS | Encounter Summary ---
Author Organization [employer] ([place], [place], [place], [place], [place]) Address [address] [place] [address] Care Team Providers Care Floor Representative Name Role Phone Robert Batista MD Primary Care Provider [phone] Encounter Details Date Type Department Care Team (Late st Contact Info) Description 12/29/2020 Transcribed Document [facility] [place] [address] [place] [address] ProviderMacrina MD [address] [place] [address] Social History Tobacco Use Types Packs/Day Years Used Date Smoking Tobacco: Never Assessed Sex and Gender Information Value Date Recorded Sex Assigned at Not on file Legal Sex Male 1:13 PM CDT Gender Identity Not on file Sexual Orientation Not on file documented as of this encounter Miscellaneous Notes * [employer] Conversion Note - Macrina Cordova MD - 12/29/2020 5:00 PM CDT Chart Check [...] filedocumented in this encounter Care Teams Floor Representative Relationship Specialty Start Date End Date Robert Batista MD [address] [place] [address] PCP - General Family Medicine 07/04/25 documented as of this encounter
--- OUTSIDE RECORDS SUMMARY | 2025-07-11 04:29 | XMS_ITS | Encounter Summary ---
Author Organization [employer] ([place], [place], [place], [place], [place]) Address [address] [place] [address] Care Team Providers Care Turn Sewer Name Role Phone Robert Batista MD Primary Care Provider [phone] Encounter Details Date Type Department Care Team (Late st Contact Info) Description 12/29/2020 Transcribed Document [facility] [place] [address] [place] [address] ProviderMacrina MD [address] [place] [address] Social History Tobacco Use Types [...] : CPOT CPOT Pain Scale Link : Open Marley Huizar Non Emp RN - 01/06/2021 3:12 EDT Pain Scale, CPOT CPOT Facial Expression : Tense CPOT Body Movements : Restlessness CPOT Muscle Tension : Relaxed CPOT Airway Status : Extubated CPOT Vocalization (Extubated) : Talking in normal tone or no sound CPOT Pain Scale Score : 3 CPOT Copyright Information : Amado Alcaraz, Rui L, Tawanda MEJIA, Matilde Alcaraz, Jocelyne Bishop., Validation of the Critical-Care Pain Observation Tool in, adult patients. Am J Crit Care. 2006;15(4):420-427. Table 1, http://ajcc.aacnjournals.org/content/15/4/420.short, ?? 2006 [place] [employer] Nurses., Used with permission. Marley Huizar Non Emp RN - 01/06/2021 3:12 EDT Electronically signed by Sekou Payne Conversion Automobile Body Repair Supervisor Cerner at 11/14/2022 8:23 AM CDT documented in this encounter Plan of Treatment Not on file documented as of this encounter Visit Diagnoses Not on filedocumented in this encounter Care Teams Turn Sewer Relationship Specialty Start Date End Date Robert Batista MD [address] [place] [address] PCP - General Family Medicine 07/04/25 documented as of this encounter
--- OUTSIDE RECORDS SUMMARY | 2025-07-11 04:29 | XMS_ITS | Encounter Summary ---
Author Organization [employer] ([place], [place], [place], [place], [place]) Address [address] [place] [address] Care Team Providers Care Neonatal Specialist Name Role Phone Robert Batista MD Primary Care Provider [phone] Encounter Details Date Type Department Care Team (Late st Contact Info) Description 12/27/2020 Transcribed Document [facility] [place] [address] ProviderMacrina MD [address] [place] [id number] Social History Tobacco Use Types Packs/Day Years [...] of pericardial effusion. ANESTHESIA: General endotracheal anesthesia. AMPOULE FILLER AND SEALER: Sandi Gilmore physician human resources benefits assistant. INDICATION FOR PROCEDURE: Mr. Francesco Adorno [...] fluid collection anymore. At this point, a 36-Greek right angle chest tube was placed in [...] and skin was approximated in subcuticular stitches. /[id number] Cuauhtemoc Gresham MD HRM/AQ / HRM / MODL /[id number] CC: MD Dr. Robert Gonzales MD Electronically signed by Interface, [facility] Conversion Research And Development Tester Cerner at 11/10/2022 9:09 AM CDT documented in this encounter Plan of Treatment Not on file documented as of this encounter Visit Diagnoses Not on filedocumented in this encounter Care Teams Neonatal Specialist Relationship Specialty Start Date End Date Robert Batista MD [address] [place] [address] PCP - General Family Medicine 07/04/25 documented as of this encounter
--- OUTSIDE RECORDS SUMMARY | 2025-07-11 04:29 | XMS_ITS | Encounter Summary ---
Author Organization [employer] ([place], [place], [place], [place], [place]) Address [address] [place] [address] Care Team Providers Care Shake Table Operator Name Role Phone Robert Batista MD Primary Care Provider [phone] Encounter Details Date Type Department Care Team (Late st Contact Info) Description 12/27/2020 Transcribed Document [facility] [place] Family Medicine [address] [place] [address] ProviderMacrina MD [address] [place] [address] Social History Tobacco Use Types Packs/Day Years Used Date Smoking Tobacco: Never Assessed Sex and Gender Information Value Date Recorded Sex Assigned at Not on file Legal Sex Male 1:13 PM CDT Gender Identity Not on file Sexual Orientation Not on file documented as of this encounter Miscellaneous Notes * Cerner Conversion Note - Macrina ProviderMD - 12/27/2020 5:41 PM CDT [facility] Main OR IntraOp Summary Primary Physician: EMEKA MADERA MD-CAT Finalized Date/Time: 12/31/20 11:28:04 Pt. Name: HUONG JOSEFRANCO Booker D.O.B./Sex: 1940 Male Med Rec #: [id number] Physician: DANYELLE WALTERS MD-CAR Financial #: [id number] Pt. Type: I Room/Bed: [facility] Admit/Disch: 12/27/20 06:39:00 - Institution: [facility] IntraOp Case Attendance Entry 1 Entry 2 Entry 3 Case Attendee EMEKA MADERA BURBERRY, KEITH, MD-ANS Proffitt, Debbie, RN -CAT Role Performed Surgeon/Proceduralist, Anesthesiologist Urology Teacher, First First Time In 12/27/20 16:28:00 12/27/20 16:28:00 12/27/20 16:28:00 Time Out 12/27/20 18:11:00 12/27/20 18:11:00 12/27/20 18:11:00 Procedure Mediastinal Exploration Mediastinal Exploration Mediastinal Exploration Other Attendee Superficial Wound Closed By: Last Modified By: Leonora Joy RN Proffitt, Debbie, RN Proffitt, Debbie, RN 12/27/20 18:25:23 12/27/20 18:25:23 12/27/20 18:25:23 Entry 4 Entry 5 Entry 6 Case Attendee SHAYLA COWAN, IRVING MITCHELL, TAMEKA SANDERSON Role Performed Urology Teacher, Second Urology Teacher, Third Scrub, First Time In 12/27/20 16:28:00 12/27/20 16:28:00 12/27/20 16:28:00 Time Out 12/27/20 17:09:00 12/27/20 16:45:00 12/27/20 18:11:00 Procedure Mediastinal Exploration Mediastinal Exploration Mediastinal Exploration Other Attendee Superficial Wound Closed By: Last Modified By: Leonora Joy RN Proffitt, Debbie, Leonora Davis RN 12/27/20 18:25:23 12/27/20 18:25:23 12/27/20 18:25:23 Entry 7 Entry 8 Entry 9 Case Attendee JESSY GALLO MEECE, PAUL, LUCÍA-Manny Stratton, RN Water Carter Role Performed Water Carter Physician technical staff assistant Other Time In 12/27/20 16:28:00 12/27/20 16:50:00 12/27/20 16:28:00 Time Out 12/27/20 18:11:00 12/27/20 18:11:00 12/27/20 16:42:00 Procedure Mediastinal Exploration Mediastinal Exploration Mediastinal Exploration Other Attendee [facility] NURSE Superficial Wound Closed By: Last Modified By: Leonora Joy, RN Leonora Joy, RN Leonora Joy, SHYAM 12/27/20 18:25:23 12/27/20 18:25:23 12/27/20 18:31:39 Entry 10 Case Attendee Tracie Wong, Custom Shoe Designer And Maker-Student Nurse Role Performed Other Time In 12/27/20 16:28:00 Time Out 12/27/20 16:42:00 Procedure Mediastinal Exploration Other Attendee FROM [facility] Superficial Wound Closed By: Last Modified By: Leonora Joy RN 12/27/20 18:31:39 [facility] IntraOp Case Attendance Audit 12/27/20 18:31:39 Copyright Expert: PROFITDE Modifier: PROFITDE <+> 9 Case Attendee <+> 9 Role Performed <+> 9 Time In <+> 9 Time Out <+> 9 Procedure <+> 9 Other Attendee <+> 10 Case Attendee <+> 10 Role Performed <+> 10 Time In <+> 10 Time Out <+> 10 Procedure <+> 10 Other Attendee 12/27/20 18:25:23 Copyright Expert: PROFITDE Modifier: PROFITDE 1 <*> Procedure Mediastinal Exploration 2 <*> Procedure Mediastinal Exploration 3 <*> Procedure Mediastinal Exploration 4 <*> Procedure Mediastinal Exploration 5 <*> Procedure Mediastinal Exploration 6 <*> Procedure Mediastinal Exploration 7 <*> Procedure Mediastinal Exploration 8 <+> Time Out 8 <*> Procedure Mediastinal Exploration 12/27/20 18:22:52 Copyright Expert: PROFITDE Modifier: PROFITDE <+> 8 Case Attendee <+> 8 Role Performed <+> 8 Time In <+> 8 Procedure 12/27/20 18:21:01 Copyright Expert: PROFITDE Modifier: PROFITDE <+> 1 Procedure <+> 2 Procedure <+> 3 Procedure <+> 4 Procedure <+> 5 Procedure <+> 6 Procedure <+> 7 Procedure 12/27/20 18:20:49 Copyright Expert: PROFITDE Modifier: PROFITDE 1 <-> Procedure Coronary [...] 7 <-> Procedure Coronary Artery Bypass Graft [facility] IntraOp Case Times Entry 1 Patient In Room Time 12/27/20 16:28:00 Out Room Time 12/27/20 18:11:00 Anesthesia Start Time 12/27/20 16:28:00 Stop Time 12/27/20 18:11:00 Anesthesia Ready 12/27/20 16:28:00 Surgery / Procedure Times Start Time 12/27/20 17:41:00 Stop Time 12/27/20 17:58:00 Last Modified By: Leonora Joy RN 12/27/20 18:11:08 [facility] IntraOp Cautery Entry 1 ESU Identification Cautery Type Monopolar ESU ID Number [id number] ID Type Hospital Number Cautery Settings Cut [...] Modified By: Leonora Joy RN 12/27/20 18:18:50 [facility] IntraOp Communication Entry 1 Communication To Other Comment [facility] INFORMED OF START AND CLOSING Communication By Leonora Joy RN Last Modified By: Leonora Joy RN 12/27/20 18:16:29 [facility] IntraOp Counts Verification Entry 1 Entry [...] Counts Performed By Count Performed By IRVING HEBERT CST SKIDMORE, ROY (Scrub) Count Performed By SHAYLA COWAN RN Proffitt, Debbie, RN (RN) Last Modified By: Leonora Joy RN Proffitt, Debbie, RN 12/27/20 18:21:02 12/27/20 18:21:02 [facility] IntraOp Counts Verification Audit 12/27/20 18:21:02 Copyright Expert: PROFITDE Modifier: PROFITDE <+> 1 Procedure <+> 2 Procedure 12/27/20 18:20:50 Copyright Expert: PROFITDE Modifier: PROFITDE 1 <-> Procedure Coronary Artery Bypass Graft 2 <-> Procedure Coronary Artery Bypass Graft 12/27/20 18:17:53 Copyright Expert: PROFITDE Modifier: PROFITDE <+> 2 Procedure <+> 2 Count Type <+> 2 Counts Verification Sequence <+> 2 Count Results <+> 2 Count Performed By (Scrub) <+> 2 Count Performed By (RN) [facility] IntraOp Counts Final Entry 1 Procedure Mediastinal Exploration Final Count Info Count Type Sponge, Sharps, Miscellaneous Counts Verification Skin Closure/end of Sequence procedure Count Results Correct, surgeon notified Counts Performed By Count Performed By TAMEKA REDD (Scrub) Count Performed By Leonora Joy RN (RN) Last Modified By: Leonora Joy RN 12/27/20 18:21:02 [facility] IntraOp Counts Final Audit 12/27/20 18:21:02 Copyright Expert: PROFITDE Modifier: PROFITDE <+> 1 Procedure 12/27/20 18:20:50 Copyright Expert: PROFITDE Modifier: PROFITDE 1 <-> Procedure Coronary Artery Bypass Graft [facility] IntraOp Departure from OR Entry 1 Integumentary Assessment Integumentary WDL with patient Assessment WDL specific variances Patient's Normal PREOP, PLUS NEW Integumentary INCISION STERNAL Variance(s) Transfer/Handoff Transfer to ICU - Cardiovascular Handoff Method Bedside/Face to face, Phone call Handoff Reported to Manny Spencer RN Post-op Transport Bed (including Via specialty) Patient Transport JEISON CRUZ, Accompanied by SILKE, JESSY GALLO, Water Carter, NIDIA HOOPER PA-UNK Last Modified By: Leonora Joy RN 12/27/20 18:23:11 [facility] IntraOp Departure from OR Audit 12/27/20 18:23:11 Copyright Expert: PROFITDE Modifier: PROFITDE 1 <*> Patient Transport Accompanied by JESSY GALLO, Water Carter [facility] IntraOp Drains and Tubes Entry 1 Device Type Chest Tube Size 36 FR. RIGHT ANGLED X 2 Drain/Tube Activity Inserted, Tube secured/stabilized Drain/Tube Suction Continuous high Drain/Tube Drainage None Device Location MEDIASTINUM Method of Drainage Active Chest Tubes Water-Seal 20 cm suction Connectivity Last Modified By: Leonora Joy RN 12/27/20 18:23:57 [facility] IntraOp Dressing and Packing Entry 1 Location CHEST Applied By NIDIA HOOPER PA-UNK Other Comments TEGADERM AND AQUACEL Last Modified By: Leonora Joy RN 12/27/20 18:32:08 [facility] IntraOp Fire Risk Assessment Entry 1 [...] Modified By: Leonora Joy RN 12/27/20 18:19:13 [facility] IntraOp General Case Financial Analysis Advisor 1 Case Information OR OR 14 [facility] Case Level 2 Room Verified Yes Wound Class I - Clean Specialty Cardio Thoracic Anesthesia Type General ASA Class 4E Diagnosis Preop Diagnosis cardiac tamponade Postop Same As Preop Yes Postop Diagnosis cardiac tamponade Last Modified By: Leonora Joy RN 12/27/20 18:13:36 [facility] IntraOp Implant Log Entry 1 Implant Log Implant PATCH VASC FELT 1.65MM Identification [id number] Description Implant Quantity 1 Implant Site HEART Implant [id number] Identification Lot Number Implant Cr Bard:Peripheral Vasc Identification Refractory Tile Helper Name: Implant [id number] Identification Catalog Number Implant Has an Yes Expiration Date Implant Expiration 04/23/24 Date Tissue Implant Implant Type Comment USED FOR THICKER PLEDGETS Last Modified By: Leonora Joy RN 12/27/20 18:28:44 [facility] IntraOp Intraoperative Assessment Entry 1 Handoff [...] Modified By: Leonora Joy RN 12/27/20 18:20:31 [facility] IntraOp Intraoperative Equipment Entry 1 Equipment Intraop Monitoring Electrocardiogram Five lead placement (ECG) Electrode Placement Blood Pressure Arterial Pressure Line Source Blood Pressure Arterial Location Pulse Oximeter Hand, right Probe Site Antiembolic Devices Scopes Photo/Video Documentation Last Modified By: Leonora Joy RN 12/27/20 18:26:37 [facility] IntraOp Medication Admin Entry 1 Medication/Irrigant CEFAZOLIN Route of ON MOIST LAPS TO STERNUM Administration Dose Dose 2 Unit of Measure gram Administered By EMEKA MADERA MD-CAT Procedure Irrigation Last Modified By: Leonora Joy RN 12/27/20 18:24:52 [facility] IntraOp Patient Positioning Entry 1 Procedure Mediastinal Exploration Body Position Supine Left Arm Position Tucked and padded at side Right Arm Position Tucked and padded at side Left Leg Position Uncrossed, parallel Right Leg Position Uncrossed, parallel Feet Uncrossed Yes Pressure Points Yes Checked Device Position TEMPURPEDIC MATTRESS, BILATERAL ULNAR NERVE PROTECTORS Positioned By JEISON CRUZ MD-ANS, Leonora Joy, SHYAM, SHAYLA COWAN RN Position Verified Positioning Yes Verified by Anesthesia Positioning Yes Verified by Surgeon Last Modified By: Leonora Joy RN 12/27/20 18:30:14 [facility] IntraOp Sign In Entry 1 Patient, [...] Modified By: Leonora Joy RN 12/27/20 18:25:21 [facility] IntraOp Sign Out Entry 1 RN [...] Modified By: Leonora Joy RN 12/27/20 18:32:49 [facility] IntraOp Skin Prep Entry 1 Procedure Mediastinal Exploration Prescribed Yes Pre-Surgical Prep Completed Prep Area CEST, CHIN TO KNEES Intraop Prep Prep Agents Chloraprep Prep by Leonora Joy RN Hair Removal Last Modified By: Leonora Joy RN 12/27/20 18:27:10 [facility] IntraOp Surgical Procedures Entry 1 Procedure Mediastinal Exploration Additional MEEDIANSTERNOTOMY, Procedure REPAIR OF LEFT Description VENTRICULAR TEAR Primary Procedure Yes Primary Surgeon EMEKA MADERA MD-CAT Start 12/27/20 17:41:00 Stop 12/27/20 17:58:00 Anesthesia Type General Specialty Cardio Thoracic Wound Class I - Clean Last Modified By: Leonora Joy RN 12/27/20 18:39:23 [facility] IntraOp Surgical Procedures Audit 12/27/20 18:39:23 Copyright Expert: PROFITDE Modifier: PROFITDE 1 <*> Procedure Mediastinal [...] the gap. <-> 2 Procedure 12/27/20 18:38:35 Copyright Expert: PROFITDE Modifier: PROFITDE <+> 2 Procedure [facility] IntraOp Temp Regulation Devices Entry 1 Temp Regulation Temperature Warm blankets Regulation Device Temperature Full body Regulation Site Temperature ON ARRIVAL AND Regulation Comment DEPARTURE FROM THE O.R., ROOM WARMED--CALL OUT INFOR Last Modified By: Leonora Joy RN 12/27/20 18:26:05 [facility] IntraOP Time Out Entry 1 Procedure [...] Modified By: Leonora Joy RN 12/27/20 18:21:02 [facility] IntraOP Time Out Audit 12/27/20 18:21:02 Copyright Expert: PROFITDE Modifier: PROFITDE <+> 1 Procedure to be Performed 12/27/20 18:20:50 Copyright Expert: PROFITDE Modifier: PROFITDE 1 <-> Procedure to [...] on filedocumented in this encounter Care Teams Shake Table Operator Relationship Specialty Start Date End Date Robert Batista MD [address] [place], [place] [address] PCP - General Family Medicine 07/04/25 documented as of this encounter
--- OUTSIDE RECORDS SUMMARY | 2025-07-11 04:29 | XMS_ITS | Encounter Summary ---
Author Organization [employer] ([place], [place], [place], [place], [place]) Address [address] [place] [address] Care Team Providers Care Harbor Pilot Name Role Phone Robert Batista MD Primary Care Provider [phone] Encounter Details Date Type Department Care Team (Late st Contact Info) Description 01/02/2021 Transcribed Document [facility] [place] [facility] [place] [address] ProviderMacrina MD [address] [place], [place] [address] Social History Tobacco Use Types Packs/Day Years Used Date Smoking Tobacco: Never Assessed Sex and Gender Information Value Date Recorded Sex Assigned at Not on file Legal Sex Male 1:13 PM CDT Gender Identity Not on file Sexual Orientation Not on file documented as of this encounter Miscellaneous Notes * Cerner Conversion Note - Macrina Cordova MD - 01/02/2021 2:52 PM CDT On Going Discharge Planning Entered On: 01/02/2021 14:55 EDT Performed On: 01/02/2021 14:52 EDT by SOPHY RM Rn-Specialties OperatorDigital Hardware Design Engineer Progress Note Discharge Arrangements : Patient [...] : Clinical Condition of Patient SOPHY RM Rn-Specialties Operator - 01/02/2021 14:52 EDT Narrative Progress Note [...] need therapy evals when appropriate. SOPHY RM Rn-Specialties Operator - 01/01/21 14:47:57 HD#4; ELOS 3; LRR; POD#4 - Electiv TAVR; L Ventrical Tear; intubated fi02 50; Cardene gtt; Corpak to be placed and TF initiated; SBT today; following commands; Head MRI ordered; possible extubation post MRI; no movement noted on R side; will need PT/OT evaluations when extubated; DCP pending progress - likely rehab. SOPHY RM Rn-Specialties Operator - 12/31/20 14:58:43 DCP TBD - pending progress; OP Cardiac Rehab referral placed thru [facility]. SOPHY RM Rn-Specialties Operator - 12/28/20 12:42:03 SOPHY RM Rn-Specialties Operator - 01/02/2021 14:52 EDT documented in this encounter Plan of Treatment Not on file documented as of this encounter Visit Diagnoses Not on filedocumented in this encounter Care Teams Harbor Pilot Relationship Specialty Start Date End Date Batista, Robert CMD [address] [place] [id number] PCP - General Family Medicine 07/04/25 documented as of this encounter
--- OUTSIDE RECORDS SUMMARY | 2025-07-11 04:29 | XMS_ITS | Encounter Summary ---
Author Organization [employer] ([place], [place], [place], [place], [place]) Address [address] [place] [address] Care Team Providers Care Trucking Contractor Name Role Phone Robert Batista MD Primary Care Provider [phone] Encounter Details Date Type Department Care Team (Late st Contact Info) Description 01/02/2021 Transcribed Document [facility] [place] [address] [place] [address] ProviderMacrina MD [address] [place] [address] Social History Tobacco Use Types Packs/Day Years Used Date Smoking Tobacco: Never Assessed Sex and Gender Information Value Date Recorded Sex Assigned at Not on file Legal Sex Male 1:13 PM CDT Gender Identity Not on file Sexual Orientation Not on file documented as of this encounter Miscellaneous Notes * Cerner Conversion Note - Macrina ProviderMD - 01/02/2021 10:13 AM CDT [facility] Charges Entered On: 01/02/2021 12:48 EDT Performed On: 01/02/2021 10:13 EDT by Lauren Newberry OCCUPATIONAL THERAPIST NON-EXEMPT [facility] Charges Screen For Cocoa Bean Cleaner : 1 Lauren Newberry OCCUPATIONAL THERAPIST NON-EXEMPT - 01/02/2021 12:48 EDT documented in this encounter Plan of Treatment Not on file documented as of this encounter Visit Diagnoses Not on filedocumented in this encounter Care Teams Trucking Contractor Relationship Specialty Start Date End Date Robert Batista MD [address] [place] [address] PCP - General Family Medicine 07/04/25 documented as of this encounter
--- OUTSIDE RECORDS SUMMARY | 2025-07-11 04:29 | XMS_ITS | Encounter Summary ---
Author Organization [employer] ([place], [place], [place], [place], [place]) Address [address] [place] [address] Care Team Providers Care Mobile Sales Assistant Name Role Phone Robert Batista MD Primary Care Provider [phone] Encounter Details Date Type Department Care Team (Late st Contact Info) Description 01/02/2021 Transcribed Document [facility] [place] Family Medicine [facility] [place] [address] ProviderMacrina MD [address] [place] [address] Social History Tobacco Use Types Packs/Day Years [...] 1012. 01/02/21: POD#6 Intubated and sedated on [id number]/hr and Precedex .6mcg/kg/min. He is also on Levo .03mcg/kg/min. Health Status Allergies: Allergic Reactions (Selected) No Known Allergies Physical Examination Intake and Output 24 hour intake: Total 1320 ml 24 hour output: Total 1330 ml MT and Right CT no drainage was recorded on shoer VS/Measurements Vital Measurements 01/02/2021 8:14 EDT Heart [...] Pre-Op Diagnosis, Medical. Electronically signed by Elmer, [facility] Conversion Paper Cup Handle Machine Operator Cerner at 11/10/2022 9:31 AM CDT documented in this encounter Plan of Treatment Not on file documented as of this encounter Visit Diagnoses Not on filedocumented in this encounter Care Teams Mobile Sales Assistant Relationship Specialty Start Date End Date Robert Batista MD [address] [place], [place] [phone] PCP - General Family Medicine 07/04/25 documented as of this encounter
--- OUTSIDE RECORDS SUMMARY | 2025-07-11 04:30 | XMS_ITS | Encounter Summary ---
Author Organization [employer] ([place], [place], [place], [place], [place]) Address [address] [place] [address] Care Team Providers Care Sales Assistant Name Role Phone Robert Batista MD Primary Care Provider [phone] Encounter Details Date Type Department Care Team (Late st Contact Info) Description 01/07/2021 Transcribed Document [facility] Family [place] [address] ProviderMacrina MD [address] [place], [place] [id number] Social History Tobacco Use Types Packs/Day Years [...] intermittently; call with questions. Electronically signed by Elmer [facility] Conversion Mantel Craftsman Cerner at 11/10/2022 9:31 AM CDT documented in this encounter Plan of Treatment Not on file documented as of this encounter Visit Diagnoses Not on filedocumented in this encounter Care Teams Sales Assistant Relationship Specialty Start Date End Date Robert Batista MD [address] [place], [place] [phone] PCP - General Family Medicine 07/04/25 documented as of this encounter
--- OUTSIDE RECORDS SUMMARY | 2025-07-11 04:30 | XMS_ITS | Encounter Summary ---
Author Organization [employer] ([place], [place], [place], [place], [place]) Address [address] [place] [address] Care Team Providers Care Rail Flaw Detector Operator Name Role Phone Robert Baitsta MD Primary Care Provider [phone] Encounter Details Date Type Department Care Team (Late st Contact Info) Description 12/30/2020 Transcribed Document [facility] Pulm & Critical Care Medicine [address] [place] [address] [place], [place] [id number] Kapil River MD [address] [facility] [address] [place] [address] Social History Tobacco Use Types Packs/Day Years [...] (Last four charted values) WBC H 13.1 (CESAR 06) H 12.8 (CESAR 06) H 10.8 (CESAR 05) 7.4 (CESAR 04) [...] H 141 (CESAR 04) H 179 (DEC 27) ALT 35 (DEC 06) 58 (DEC 05) H 85 (DEC 04) H 108 (DEC 03) ALK P 64 (DEC 30) 55 (DEC 05) 53 (DEC 28) 46 (DEC 27) T Bili H 2.2 (DEC 30) H 1.3 (DEC 05) H 2.2 (DEC 28) H 1.5 (DEC 27) PTN L 5.2 (DEC 30) L 4.6 (DEC 29) L 4.8 (DEC 28) L 4.3 (DEC 27) ALB L 2.4 (DEC 30) L 2.4 (DEC 29) L 2.7 (DEC 28) L 2.6 (DEC 27) Troponin <0.015 (DEC 25) . Blood Gases (Current Encounter/Past 24 Hours) pH Art 7.52 [place] 12/30/2020 08:28 pCO2 Art 33.0 LOW 12/30/2020 08:28 pO2 Art 57.7 [facility] 12/30/2020 08:28 HCO3 Art 26.7 [place] 12/30/2020 08:28 BE Art 3.8 [place] 12/30/2020 08:28 sO2 Art 92.4 [facility] 12/30/2020 08:28 tHb Art 9.5 LOW 12/30/2020 08:28 FHHb 7.5 NA 12/30/2020 04:00 ctO2 12.2 NA 12/30/2020 04:00 FIO2 Art 75 NA 12/30/2020 04:00 Delivery Device Type Art Ventilator 12/30/2020 04:00 Temperature, F Art 98.6 12/30/2020 04:00 Art Blood Gas (ABG) Site [...] 12/30/2020 04:00 Radiology Results (Last 48 hours) [id number] -- 12/27/2020 06:39 CR Chest 1 Vw [...] critical care time excluding procedures. Discussed with BANK BOSS: RN and patient's at bedside. documented in this encounter Plan of Treatment Not on file documented as of this encounter Visit Diagnoses Not on filedocumented in this encounter Care Teams Rail Flaw Detector Operator Relationship Specialty Start Date End Date Robert Batista MD [address] [place] [address] PCP - General Family Medicine 07/04/25 documented as of this encounter
--- OUTSIDE RECORDS SUMMARY | 2025-07-11 04:30 | XMS_ITS | Encounter Summary ---
Author Organization [employer] ([place], [place], [place], [place], [place]) Address [address] [place] [address] Care Team Providers Care Senior Care Specialist Name Role Phone Robert Batista MD Primary Care Provider [phone] Encounter Details Date Type Department Care Team (Late st Contact Info) Description 09/19/2019 Transcribed Document [facility] Family Medicine [address] [place] [address] ProviderMacrina MD [address] [place] [address] Social History Tobacco Use Types Packs/Day Years Used Date Smoking Tobacco: Never Assessed Sex and Gender Information Value Date Recorded Sex Assigned at Not on file Legal Sex Male 1:13 PM CDT Gender Identity Not on file Sexual Orientation Not on file documented as of this encounter Miscellaneous Notes * Cerner Conversion Note - Macrina ProviderMD - 09/19/2019 1:28 PM COLLEGE TUTOR Pre Procedure Adult Entered On: 09/19/2019 13:29 EST Performed On: 09/19/2019 13:28 EST by CELESTINA ALVARADO RN Height and Weight, Clinical Dosing Height Source : Stated Height Entry Format : Pike Height, Feet : 5 ft(Converted to: 152 cm, 60 Inch) Height, Inches : 8 Inch(Converted to: 0 ft 8 Inch, 20.32 cm) Clinical Height : 172.72 cm Weight Source : Standing scale Weight Entry Format : Pike Clinical Dosing Weight : 62.27 kg Weight, Pounds : 137 lb Body Surface Area (BSA) : 1.74 m2 Body Mass Index : 20.9 kg/m2 [place] Body Weight : 67 kg CELESTINA ALVARADO [...] - 09/19/2019 13:28 EST Electronically signed by [facility], [facility] Conversion Snow Technician Cerner at 11/10/2022 9:26 AM CDT documented in this encounter Plan of Treatment Not on file documented as of this encounter Visit Diagnoses Not on filedocumented in this encounter Care Teams Senior Care Specialist Relationship Specialty Start Date End Date Robert Batista MD [address] [place] [place] [phone] PCP - General Family Medicine 07/04/25 documented as of this encounter
--- OUTSIDE RECORDS SUMMARY | 2025-07-11 04:30 | XMS_ITS | Encounter Summary ---
Author Organization [employer] ([place], [place], [place], [place], [place]) Address [address] [place] [address] Care Team Providers Care Hairpiece Stylist Name Role Phone Robert Batista MD Primary Care Provider [phone] Encounter Details Date Type Department Care Team (Late st Contact Info) Description 12/29/2020 Transcribed Document [facility] [place] [address] [place] [address] ProviderMacrina MD [address] [place] [address] Social History Tobacco Use Types Packs/Day Years Used Date Smoking Tobacco: Never Assessed Sex and Gender Information Value Date Recorded Sex Assigned at Not on file Legal Sex Male 1:13 PM CDT Gender Identity Not on file Sexual Orientation Not on file documented as of this encounter Miscellaneous Notes * Cerner Conversion Note - Macrina Cordova MD - 12/29/2020 12:13 PM CDT Clinical Dietitian Note Entered On: 12/29/2020 12:13 EDT Performed On: 12/29/2020 12:13 EDT by Alexa Dukes Dietitian Clinical Dietitian Note Clinical Dietitian Note [...] AAT to goal at 50ml/hr + 1 eufttyzop52 daily (provides 1710kcal, 83g PRO). D/c D5W once on TF. Goal: meet est needs 3. Monitor elytes and replace prn Goal: wnls 4. Obtain wt 2x weekly goal: avoid sig wt changes Risk: High Alexa Dukes Dietitian - 12/29/2020 12:13 EDT Electronically signed by Elmer [facility] Conversion Aluminum Boats Assembler Cerner at 11/10/2022 9:27 AM CDT documented in this encounter Plan of Treatment Not on file documented as of this encounter Visit Diagnoses Not on filedocumented in this encounter Care Teams Hairpiece Stylist Relationship Specialty Start Date End Date Robert Batista MD [address] [place] [address] PCP - General Family Medicine 07/04/25 documented as of this encounter
--- OUTSIDE RECORDS SUMMARY | 2025-07-11 04:30 | XMS_ITS | Encounter Summary ---
Author Organization [employer] ([place], [place], [place], [place], [place]) Address [address] [place] [address] Care Team Providers Care Link Trainer Maintenance Worker Name Role Phone Robert Batista MD Primary Care Provider [phone] Encounter Details Date Type Department Care Team (Late st Contact Info) Description 11/15/2019 Transcribed Document [facility] [place] [facility] [address] ProviderMacrina MD [address] [place] [address] Social History Tobacco Use Types Packs/Day [...] and water are not available, use hand remote control mirror installer. ? Change your dressing as told by [...] contrast dye from your body. ??? Take uxwh-eiv-nzebtzr and prescription medicines only as told by [...] 01/29/2006 Document Revised: 06/17/2017 Document Reviewed: 06/17/2017 [employer] Interactive Patient Education ? 2019 Else[employer] Inc. Valvuloplasty, Care After This sheet gives [...] and water are not available, use hand remote control mirror installer. ? Change your dressing as told by [...] health care provider. General instructions ??? Take pwov-upr-cdgzgie and prescription medicines only as told by your health care provider. ??? Do not take baths, swim, or use a hot tub until your health care provider approves. ??? To prevent or treat constipation while you are taking prescription pain medicine, your health care provider may recommend that you: ? Drink enough fluid to keep your urine clear or pale yellow. ? Take ogug-hgr-fgzngqn or prescription medicines. ? Eat foods that [...] 11/27/2015 Document Revised: 06/09/2017 Document Reviewed: 06/09/2017 [employer] Interactive Patient Education ? 2019 [employer]. Moderate Conscious Sedation, Adult, Care After [...] you are awake and alert. ??? Take moar-rxf-djhfnfr and prescription medicines only as told by [...] 05/03/2014 Document Revised: 12/15/2016 Document Reviewed: 11/01/2016 [employer] Interactive Patient Education ? 2019 [employer]. [facility] Site Care Refer to this sheet in [...] Document Reviewed: 08/15/2011 ExitCare? Patient Information ?2013 [employer]. documented in this encounter Plan of Treatment Not on file documented as of this encounter Visit Diagnoses Not on filedocumented in this encounter Care Teams Link Trainer Maintenance Worker Relationship Specialty Start Date End Date Robert Batista MD [address] [place] [address] PCP - General Family Medicine 07/04/25 documented as of this encounter
--- OUTSIDE RECORDS SUMMARY | 2025-07-11 04:30 | XMS_ITS | Encounter Summary ---
Author Organization [employer] ([place], [place], [place], [place], [place]) Address [address] [place] [address] Care Team Providers Care Stator Connector Name Role Phone Robert Batista MD Primary Care Provider Encounter Details Date Type Department Care Team (Late st Contact Info) Description 12/27/2020 Transcribed Document [facility] [place] [address] [place] [address] ProviderMacrina MD [address] [place] [address] Social History Tobacco Use Types [...] on filedocumented in this encounter Care Teams Stator Connector Relationship Specialty Start Date End Date Robert Batista MD [address] [place], [place] [address] PCP - General Family Medicine 07/04/25 documented as of this encounter
--- OUTSIDE RECORDS SUMMARY | 2025-07-11 04:30 | XMS_ITS | Encounter Summary ---
Author Organization [employer] ([place], [place], [place], [place], [place]) Address [address] [place] [address] Care Team Providers Care Register Repairer Name Role Phone Robert Batista MD Primary Care Provider [phone] Encounter Details Date Type Department Care Team (Late st Contact Info) Description 12/27/2020 Transcribed Document [facility] [place] [address] [place] [address] ProviderMacrina MD [address] [place], [place] [address] Social History Tobacco Use Types Packs/Day Years Used Date Smoking Tobacco: Never Assessed Sex and Gender Information Value Date Recorded Sex Assigned at Not on file Legal Sex Male 1:13 PM CDT Gender Identity Not on file Sexual Orientation Not on file documented as of this encounter Miscellaneous Notes * Cerner Conversion Note - Macrina ProviderMD - 12/27/2020 8:44 PM CDT Spiritual Care Assessment Entered On: 12/27/2020 20:45 EDT Performed On: 12/27/2020 20:44 EDT by LAVERN VALDIVIA Chaplain General Information Initial Visit : No Referred by : follow-up Ministry Provided to : Family/Significant other LAVERN VALDIVIA Chaplain - 12/27/2020 20:44 EDT Interventions Emotional Support : Family/Significant other supported, Feelings expressed, Hope strengths identified, Hope struggles identified Spiritual and Lutheran : Beliefs/Values explored, Prayer shared, Spiritual/Lutheran support provided LAVERN VALDIVIA Chaplain - 12/27/2020 20:44 EDT Electronically signed by Elmer [facility] Conversion Controller Instructor Cerner at 11/10/2022 9:19 AM CDT documented in this encounter Plan of Treatment Not on file documented as of this encounter Visit Diagnoses Not on filedocumented in this encounter Care Teams Register Repairer Relationship Specialty Start Date End Date Robert Batista MD [address] [place], [place] [address] PCP - General Family Medicine 07/04/25 documented as of this encounter
--- OUTSIDE RECORDS SUMMARY | 2025-07-11 04:30 | XMS_ITS | Encounter Summary ---
Author Organization [employer] ([place], [place], [place], [place], [place]) Address [address] [place] [address] Care Team Providers Care Clinical Medical Transcriptionist Name Role Phone Robert Batista MD Primary Care Provider [phone] Encounter Details Date Type Department Care Team (Late st Contact Info) Description 12/30/2020 Transcribed Document [facility] [place] [facility] [place] [address] ProviderMacrina MD [address] [place], [place] [id number] Social History Tobacco Use Types Packs/Day Years [...] Transfuse 6 pk of Plts continue support. Electronically signed by Elmer, [facility] Conversion Billing Analyst Cerner at 11/10/2022 9:27 AM CDT documented in this encounter Plan of Treatment Not on file documented as of this encounter Visit Diagnoses Not on filedocumented in this encounter Care Teams Clinical Medical Transcriptionist Relationship Specialty Start Date End Date Robert Batista MD [address] [place] [address] PCP - General Family Medicine 07/04/25 documented as of this encounter
--- OUTSIDE RECORDS SUMMARY | 2025-07-11 04:30 | XMS_ITS | Referral Summary ---
Author Organization [employer] ([place], [place], [place], [place], [place]) Address [address] [place] [address] Care Team Providers Care Corduroy Cutting Supervisor Name Role Phone Robert Batista MD Primary Care Provider [phone] Encounters Date Type Department Care Team Description 07/10/2025 8:52 AM EST - 07/10/2025 10:14 AM EST Surgery [facility] [address] [place] [address] Ayden Doll Jr., MD GREENLIGHT LASER VAPORIZATION OF PROSTATE 07/10/2025 8:48 AM EST Anesthesia Event [facility] [address] [place] [address] Catalina Gilmore CRNA Qureshi, Muhammad, MD 07/10/2025 6:25 AM EST - 07/10/2025 10:50 AM EST Hospital Encounter [facility] Surgery Department [address] [place] [address] Ayden Doll Jr., MD BPH with obstruction/lower urinary tract symptoms (Primary Dx) Discharge Disposition: Home or Self Care 07/04/2025 Travel 07/04/2025 1:30 PM EST Office Visit [facility] [address] [place] [address] Carlitos Merrill MD Aortic valve stenosis, etiology of cardiac valve disease unspecified (Primary Dx); Chest pain 06/29/2025 Telephone [facility] [address] [place] [address] Arthur Gomez MD clearance from Last 3 Months Allergies No known active allergies Medications gabapentin (NEURONTIN) 300 MG capsule Take 3 capsules (900 mg total) by mouth as directed Take 3 capsules by mouth every morning and 4 capsules at bedtime.. Active lisinopriL (PRINIVIL,ZESTR IL) 10 MG tablet Take 1 tablet (10 mg total) by mouth daily. Active atorvastatin (LIPITOR) 40 MG tablet Take 1 tablet (40 mg total) by mouth nightly. Active omeprazole (PriLOSEC) 20 MG capsule Take 1 capsule (20 mg total) by mouth daily. Active doxycycline hyclate (VIBRA-TABS) 100 MG tablet Take 1 tablet (100 mg total) by mouth 2 (two) times daily. 6 tablet Active docusate sodium (COLACE) 100 MG capsule Take 1 capsule (100 mg total) by mouth 2 (two) times daily for 10 days. 20 capsule 5 07/20/20 Active oxyCODONE-aceta minophen (PERCOCET) 7.5-325 mg per tablet Take 1 tablet by mouth every 6 (six) hours as needed for pain for up to 10 days. Max Daily Amount: 4 tablets 30 tablet 5 07/20/20 Active DULoxetine (CYMBALTA) 60 MG capsule Take 1 capsule (60 mg total) by mouth 2 (two) times daily. 07/10/20 Discontinu ed(Stop Taking at Discharge) diphenoxylate-a tropine (LOMOTIL) 2.5-0.025 mg per tablet Take 1 tablet by mouth every 4 (four) hours. 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 Author Autogenerat ed Goal Care Plan Autogenerated Problem No Nimisha Haile Procedures Procedure Name Priority Date/Time Associated Diagnosis Comments OTTONIEL AN LMA LDA Routine 07/10/2025 8:53 AM EST ANESTHESIA INTUBATION Routine 07/10/2025 8:53 AM EST AL LASER VAPORIZATION OF PROSTATE FOR URINE FLOW 07/10/2025 8:46 AM EST Enlarged prostate with urinary obstruction Case Notes TRISH SAMUEL [id number] SPOKE TO [facility]AN[facility]U GLUCOSE POC Routine 07/10/2025 6:43 AM EST from Last 3 Months Results * AN SINGLE LUMEN INTUBATION, OTTONIEL AN LMA LDA (07/10/2025 8:53 AM EST) Narrative Catalina Gilmore CRNA - 07/10/2025 8:53 AM EST Catalina [...] 3 Number of attempts at approach: 1 us Catalina Gilmore CRNA ANESTHESIA ORDERABLES Final Result * Glucose, Nova Meter (07/10/2025 6:43 AM EST) POC-GLUCOSE 103 70 - 110 mg/dL 07/10/2025 6:45 AM EST [facility] Comment:In the event of poor peripheral blood flow, venous or arterial blood should be used due to the potential of erroneous results. Front Office Clerk [id number] 07/10/2025 6:45 AM EST [facility] Blood WHOLE BLOOD / Unknown 07/10/2025 6:43 AM EST 07/10/2025 6:45 AM EST us Ayden Doll Jr., MD POINT OF CARE TEST ORD ERABLES Final Result [facility] [address] [email or web address] [address], [facility] [phone] from Last 3 Months Additional Health Concerns Active Problems Noted Date Diagnosed Date Autogenerated Problem 06/29/[address] [place] [address] [facility] Care Teams Corduroy Cutting Supervisor Relationship Specialty Start Date End Date Robert Batista MD [address] [place] [address] PCP - General Family Medicine 07/04/25
--- OUTSIDE RECORDS SUMMARY | 2025-07-11 04:30 | XMS_ITS | Encounter Summary ---
Author Organization [employer] ([place], [place], [place], [place], [place]) Address [address] [place] [address] Care Team Providers Care Dietary Manager Name Role Phone Robert Batista MD Primary Care Provider [phone] Encounter Details Date Type Department Care Team (Late st Contact Info) Description 01/07/2021 Transcribed Document [facility] [place] [facility] [place] [address] ProviderMacrina MD [address] [place] [address] Social History Tobacco Use Types Packs/Day Years Used Date Smoking Tobacco: Never Assessed Sex and Gender Information Value Date Recorded Sex Assigned at Not on file Legal Sex Male 1:13 PM CDT Gender Identity Not on file Sexual Orientation Not on file documented as of this encounter Miscellaneous Notes * Cerner Conversion Note - Macrina Cordova MD - 01/07/2021 2:33 PM CDT On Going Discharge Planning Entered On: 01/07/2021 14:34 EDT Performed On: 01/07/2021 14:33 EDT by SOPHY RM Rn-Pmo Business AnalystNews Content Specialist Progress Note Discharge Arrangements : Patient [...] : Clinical Condition of Patient SOPHY RM Rn-Pmo Business Analyst - 01/07/2021 14:33 EDT Narrative Progress Note [...] provided to pt for choicing. SOPHY RM Rn-Pmo Business Analyst - 01/07/2021 14:35 EDT Historical Progress Note [...] need therapy evaluations when extubated. SOPHY RM Rn-Pmo Business Analyst - 01/04/21 15:16:12 HD#7; ELOS 3; LRR; BOOST 6; POD#7 - Elective TAVR/LVentTear/CardiacTamponade/Arrest - intubated fi02 40/peep 8; SBT x 2 hr; Fent/Precedex gtt; Corpak/TF; Humza CT in place; Neurology following - MRI diffuse scattered bilateral infarcts; pt w/improvement in movement of R side; PT/OT evaluations when extubated; DCP TBD - likely rehab. SOPHY RM Rn-Pmo Business Analyst - 01/03/21 15:03:09 HD#6; ELOS 3; LRR; BOOST 6; POD #6 - Electiv TAVR/L Vent Tear/Cardiac Tamponode/Arrest - reintubated 01/01; fi02 40; Levo/Fent/Precedex gtt; wean sedation - on SBT 2hr TID; T=99.9; Dr. Navarro states during MDR that pt's spouse aware may need trach/peg; DCP TBD pending progress. SOPHY RM Rn-Pmo Business Analyst - 01/02/21 14:55:12 HD#5; ELOS 3; LRR; BOOST 6; POD #5 - Elective TAVR/L Ventrial Tear/Cardiac Tamponode; extubated on 12/31 required reintubation today fi02 60/peep 8; Precedex/Fent gtt; Corpak/TF; IV Zosyn; CT draining; T=100; DCP TBD pending progress; will need therapy evals when appropriate. SOPHY RM Rn-Pmo Business Analyst - 01/01/21 14:47:57 HD#4; ELOS 3; LRR; POD#4 - Electiv TAVR; L Ventrical Tear; intubated fi02 50; Cardene gtt; Corpak to be placed and TF initiated; SBT today; following commands; Head MRI ordered; possible extubation post MRI; no movement noted on R side; will need PT/OT evaluations when extubated; DCP pending progress - likely rehab. SOPHY RM Rn-Pmo Business Analyst - 12/31/20 14:58:43 DCP TBD - pending progress; OP Cardiac Rehab referral placed thru [facility]. SOPHY RM Rn-Pmo Business Analyst - 12/28/20 12:42:03 SOPHY RM Rn-Pmo Business Analyst - 01/07/2021 14:33 EDT documented in this encounter Plan of Treatment Not on file documented as of this encounter Visit Diagnoses Not on filedocumented in this encounter Care Teams Dietary Manager Relationship Specialty Start Date End Date Robert Batista MD [address] [place] [address] PCP - General Family Medicine 07/04/25 documented as of this encounter
--- OUTSIDE RECORDS SUMMARY | 2025-07-11 04:30 | XMS_ITS | Encounter Summary ---
Author Organization [employer] ([place], [place], [place], [place], [place]) Address [address] [place] [address] Care Team Providers Care Game Manager Name Role Phone Robert Batista MD Primary Care Provider [phone] Encounter Details Date Type Department Care Team (Late st Contact Info) Description 12/27/[address] [facility] [place] [address] [place] [address] ProviderMacrina MD [address] [place] [address] Social History Tobacco Use Types Packs/Day Years Used Date Smoking Tobacco: Never Assessed Sex and Gender Information Value Date Recorded Sex Assigned at Not on file Legal Sex Male 1:13 PM CDT Gender Identity Not on file Sexual Orientation Not on file documented as of this encounter Miscellaneous Notes * Cerner Conversion Note - Macrina ProviderMD - 12/27/2020 6:03 PM CDT Height [...] Source : Measured Height Entry Format : [place] Height, Feet : 0 ft Height, Inches : 67.75 Inch Clinical Height : 172.09 cm Body Surface Area (BSA), Routine : 1.77 m2 Body Mass Index (BMI), Routine : 21.95 kg/m2 Manny Spencer RN - 12/27/2020 22:24 EDT Electronically signed by Elmer [facility] Conversion Collaborative Teacher Cerner at 11/10/2022 9:23 AM CDT documented in this encounter Plan of Treatment Not on file documented as of this encounter Visit Diagnoses Not on filedocumented in this encounter Care Teams Game Manager Relationship Specialty Start Date End Date Robert Batista MD [address] [place], [place] [address] PCP - General Family Medicine 07/04/25 documented as of this encounter
--- OUTSIDE RECORDS SUMMARY | 2025-07-11 04:30 | XMS_ITS | Encounter Summary ---
Author Organization [employer] ([place], [place], [place], [place], [place]) Address [address] [place] [address] Care Team Providers Care Template Cutter Name Role Phone Robert Batista MD Primary Care Provider [phone] Encounter Details Date Type Department Care Team (Late st Contact Info) Description 12/30/2020 Transcribed Document [facility] [place] [address] [place] [address] ProviderMacrina MD [address] [place] [address] Social History Tobacco Use Types Packs/Day Years Used Date Smoking Tobacco: Never Assessed Sex and Gender Information Value Date Recorded Sex Assigned at Not on file Legal Sex Male 1:13 PM CDT Gender Identity Not on file Sexual Orientation Not on file documented as of this encounter Miscellaneous Notes * Cerner Conversion Note - Macrina Cordova MD - 12/30/2020 5:00 PM CDT Chart Check - Review Order Profile Entered On: 12/30/2020 16:52 EDT Performed On: 12/30/2020 17:00 EDT by JOSEPH LEWIS RN Chart Check Powerplans Initiated/Discontinued as Appropriate : Yes All Active Orders Reviewed : Yes JOSEPH LEWIS RN - 12/30/2020 16:52 EDT Electronically signed by Elmer [facility] Conversion Diabetes Trainer Cerner at 11/10/2022 9:24 AM CDT documented in this encounter Plan of Treatment Not on file documented as of this encounter Visit Diagnoses Not on filedocumented in this encounter Care Teams Template Cutter Relationship Specialty Start Date End Date Robert Batista MD [address] [place] [address] PCP - General Family Medicine 07/04/25 documented as of this encounter
--- OUTSIDE RECORDS SUMMARY | 2025-07-11 04:30 | XMS_ITS | Encounter Summary ---
Author Organization [employer] ([place], [place], [place], [place], [place]) Address [address] [place] [address] Care Team Providers Care Filling Winder Name Role Phone Robert Batista MD Primary Care Provider [phone] Encounter Details Date Type Department Care Team (Late st Contact Info) Description 12/29/2020 Transcribed Document [facility] Pulm & Critical Care Medicine [address] [place] [address] [place], [place] [id number] Kapil River MD [address] [facility] [address] [place] [address] Social History Tobacco Use Types Packs/Day Years [...] 7.4 (DEC 27) H 19.7 (DEC 27) HB L 8.8 (DEC 05) L 8.2 (DEC 05) L 8.3 (DEC 05) L 8.3 (DEC 28) HCT L 26.8 (DEC 05) L 24.9 (DEC 05) L 24.4 (DEC 29) L 24.4 (DEC 28) Plt L 96 (CESAR 05) L 124 (CESAR 04) 174 (CESAR 03) L 93 (CESAR 03) Na 145 (CESAR 05) H 149 (CESAR 04) H 151 (CESAR 04) H 150 (CESAR 03) K 3.8 (CESAR 05) 3.9 (CESAR 04) 3.8 (CESAR 04) [...] 05) L 2.7 (CESAR 04) L 2.6 (DEC 27) L 2.6 (DEC 27) Troponin <0.015 (DEC [...] 12/29/2020 04:43 Radiology Results (Last 48 hours) [id number] -- 12/27/2020 06:39 CR Chest 1 Vw [...] critical care time excluding procedures. Discussed with STONE SETTER METAL OPTICAL FRAMES: RN and patient's at bedside. documented in this encounter Plan of Treatment Not on file documented as of this encounter Visit Diagnoses Not on filedocumented in this encounter Care Teams Filling Winder Relationship Specialty Start Date End Date Robert Batista MD [address] [place] [address] PCP - General Family Medicine 07/04/25 documented as of this encounter
--- OUTSIDE RECORDS SUMMARY | 2025-07-11 04:30 | XMS_ITS | Encounter Summary ---
Author Organization [employer] ([place], [place], [place], [place], [place]) Address [address] [place] [address] Care Team Providers Care Dehydrogenation Operator Name Role Phone Robert Batista MD Primary Care Provider [phone] Encounter Details Date Type Department Care Team (Late st Contact Info) Description 12/27/2020 Transcribed Document [facility] [place] [facility] [place] [address] ProviderMacrina MD [address] [place], [place] [address] Social History Tobacco Use Types Packs/Day Years [...] left ventricular tear. ANESTHESIA: General endotracheal anesthesia. REFRIGERATION SYSTEM INSTALLER: Hao Salazar Physician Rapid Extractor Operator. INDICATION FOR PROCEDURE: Mr. Francesco Adorno is [...] was then reapproximated using silk sutures. A 36-Mohawk right angle chest tube was placed in [...] important to mention that there was a 36-Mohawk right angle chest tube that was in [...] was transferred to the intensive care unit. /[id number] Cuauhtemoc Gresham MD HRM/AQ / HRM / MODL /[id number] CC: MD Arthur Carrington MD Electronically signed by [facility] Conversion Typewriter Mechanic Cerner at 11/10/2022 9:14 AM CDT documented in this encounter Plan of Treatment Not on file documented as of this encounter Visit Diagnoses Not on filedocumented in this encounter Care Teams Dehydrogenation Operator Relationship Specialty Start Date End Date Robert Batista MD [address] [place], [place] [address] PCP - General Family Medicine 07/04/25 documented as of this encounter
--- OUTSIDE RECORDS SUMMARY | 2025-07-11 04:30 | XMS_ITS | Encounter Summary ---
Author Organization [employer] ([place], [place], [place], [place], [place]) Address [address] [place] [address] Care Team Providers Care Mechanic Welder Truck Driver Name Role Phone Robert Batista MD Primary Care Provider [phone] Encounter Details Date Type Department Care Team (Late st Contact Info) Description 12/27/2020 Transcribed Document [facility] [place] Family Medicine [address] [place] [address] ProviderMacrina MD [address] [place] [address] Social History Tobacco Use Types Packs/Day Years Used Date Smoking Tobacco: Never Assessed Sex and Gender Information Value Date Recorded Sex Assigned at Not on file Legal Sex Male 1:13 PM CDT Gender Identity Not on file Sexual Orientation Not on file documented as of this encounter Miscellaneous Notes * Cerner Conversion Note - Macrina ProviderMD - 12/27/2020 11:37 AM CDT [facility] Main OR IntraOp Summary Primary Physician: EMEKA MADERA MD-CAT Finalized Date/Time: 12/31/20 11:24:25 Pt. Name: HUONG JOSEFRANCO Booker D.O.B./Sex: 1940 Male Med Rec #: [id number] Physician: DANYELLE WALTERS MD-CAR Financial #: [id number] Pt. Type: I Room/Bed: [facility] Admit/Disch: 12/27/20 06:39:00 - Institution: [facility] IntraOp Case Attendance Entry 1 Entry 2 Entry 3 Case Attendee EMEKA MADERA BURBERRY, KEITH, MD-ANS SCOTT, DEANGELIA, PA MD-CAT Role Performed Surgeon/Proceduralist, Anesthesiologist Physician emergency veterinary assistant First Time In 12/27/20 11:19:00 12/27/20 11:19:00 12/27/20 11:19:00 Time Out 12/27/20 12:43:00 12/27/20 12:43:00 12/27/20 12:43:00 Procedure Pericardial Window Pericardial Window Pericardial Window Other Attendee Superficial Wound Closed By: Last Modified By: Leonora Joy, Leonora Davis, Leonora Davis RN 12/27/20 12:45:31 12/27/20 12:45:31 12/27/20 12:45:31 Entry 4 Entry 5 Entry 6 Case Attendee JESSY GALLO SKIDMORE, ROY Proffitt, Debbie, SHYAM Deck Officer Role Performed Deck Officer Scrub, First Marine Reporter, First Time In 12/27/20 11:19:00 12/27/20 11:19:00 12/27/20 11:19:00 Time Out 12/27/20 12:43:00 12/27/20 12:43:00 12/27/20 12:43:00 Procedure Pericardial Window Pericardial Window Pericardial Window Other Attendee Superficial Wound Closed By: Last Modified By: Leonora Joy, Leonora Davis, Leonora Davis RN 12/27/20 12:45:31 12/27/20 12:45:31 12/27/20 12:45:31 Entry 7 Case Attendee SHAYLA COWAN, SHYAM Role Performed Marine Reporter, Second Time In 12/27/20 11:19:00 Time Out 12/27/20 12:43:00 Procedure Pericardial Window Other Attendee Superficial Wound Closed By: Last Modified By: Leonora Joy RN 12/27/20 12:45:31 [facility] IntraOp Case Attendance Audit 12/27/20 12:45:31 Pickers Material Handlers: PROFITDE Modifier: PROFITDE 1 <+> Time Out 1 [...] 7 <*> Procedure Pericardial Window 12/27/20 12:18:42 Pickers Material Handlers: PROFITYANETH Modifier: PROFITDE 1 <*> Case Attendee EMEKA MADERA MD-CAT 1 <*> Role Performed Surgeon/Proceduralist, First 1 <*> Time In 12/27/20 11:19:00 1 <*> Procedure Pericardial Window 2 <*> Case Attendee JEISON CRUZ MD-ANS 2 <*> Role Performed Anesthesiologist 2 <*> Time In 12/27/20 11:19:00 2 <*> Procedure Pericardial Window 3 <*> Case Attendee RACHID BRUMFIELD PA 3 <*> Role Performed Physician emergency veterinary assistant 3 <*> Time In 12/27/20 11:19:00 3 <*> Procedure Pericardial Window 4 <*> Case Attendee JESSY GALLO, Deck Officer 4 <*> Role Performed Deck Officer 4 <*> Time In 12/27/20 11:19:00 4 <*> Procedure Pericardial Window 5 <*> Case Attendee TAMEKA REDD 5 <*> Role Performed Scrub, First 5 <*> Time In 12/27/20 11:19:00 5 <*> Procedure Pericardial Window 6 <*> Case Attendee Leonora Joy, RN 6 <*> Role Performed Marine Reporter, First 6 <*> Time In 12/27/20 11:19:00 6 <*> Procedure Pericardial Window 7 <*> Case Attendee SHAYLA COWAN, RN 7 <*> Role Performed Marine Reporter, Second 7 <*> Time In 12/27/20 11:19:00 7 <*> Procedure Pericardial Window Entry 8 was deleted. Higher numbered entries shifted one position to fill the gap. <-> 8 Case Attendee LUNA YUN ST <-> 8 Role Performed Scrub, First <-> 8 Time In 12/27/20 12:05:00 <-> 8 Procedure Pericardial Window 12/27/20 12:09:35 Pickers Material Handlers: PROFITDE Modifier: PROFITDE <+> 8 Case Attendee <+> 8 Role Performed <+> 8 Time In <+> 8 Procedure 12/27/20 12:08:20 Pickers Material Handlers: PROFITDE Modifier: PROFITDE <+> 1 Procedure 2 <*> Procedure Pericardial Window 3 <*> Procedure Pericardial Window 4 <*> Procedure Pericardial Window 5 <*> Procedure Pericardial Window 6 <*> Procedure Pericardial Window 7 <*> Procedure Pericardial Window [facility] IntraOp Case Times Entry 1 Patient In Room Time 12/27/20 11:19:00 Out Room Time 12/27/20 12:43:00 Anesthesia Start Time 12/27/20 11:19:00 Stop Time 12/27/20 12:43:00 Anesthesia Ready 12/27/20 11:19:00 Surgery / Procedure Times Start Time 12/27/20 11:37:00 Stop Time 12/27/20 12:11:00 Last Modified By: Leonora Joy RN 12/27/20 11:45:14 [facility] IntraOp Case Times Audit 12/27/20 12:45:19 Pickers Material Handlers: PROFITDE Modifier: PROFITDE <+> 1 Out Room Time <+> 1 Stop Time 12/27/20 12:14:28 Pickers Material Handlers: PROFITDE Modifier: PROFITDE <+> 1 Stop Time [facility] IntraOp Cautery Entry 1 ESU Identification Cautery Type Monopolar ESU ID Number [id number] ID Type Hospital Number Cautery Settings Cut Setting 40 Coag Setting 60 Blend Setting 2 ESU Grounding Pad Ground Pad Type Reusable electrode pad Grounding Pad Site Right Buttock Grounding Pad SHAYLA COWAN RN Applied By Grounding Pad Site Warm, dry and intact Skin Condition Before Cautery Grounding Pad Site Unchanged Skin Condition After Cautery Last Modified By: Leonora Joy RN 12/27/20 11:52:29 [facility] IntraOp Communication Entry 1 Communication To Other Comment CTVU INFORMED OF START Communication By Leonora Joy RN Date and Time 12/27/20 11:37:00 Last Modified By: Leonora Joy RN 12/27/20 11:53:44 [facility] IntraOp Counts Verification Entry 1 Procedure Pericardial Window Count Info Count Type Sponge, Sharps, Instrument, Miscellaneous Counts Verification Baseline/pre-procedure Sequence Count Results Not Applicable Counts Performed By Count Performed By TAMEKA REDD (Scrub) Count Performed By Leonora Joy RN (RN) Last Modified By: Leonora Joy RN 12/27/20 11:51:53 [facility] IntraOp Counts Final Entry 1 Procedure Pericardial Window Final Count Info Count Type Sponge, Sharps, Miscellaneous Counts Verification Skin Closure/end of Sequence procedure Count Results Correct, surgeon notified Counts Performed By Count Performed By TAMEKA REDD (Scrub) Count Performed By Leonora Joy RN (RN) Last Modified By: Leonroa Joy RN 12/27/20 12:07:36 [facility] IntraOp Cultures and Spec Summary Entry 1 Cultrures and Specimens Specimen Ordered: Yes Test(s) Other: Segment text Requested/Final Disposition Last Modified By: Leonora Joy RN 12/27/20 11:53:11 General Comments: COAGS TO LAB [facility] IntraOp Departure from OR Entry 1 [...] Modified By: Leonora Joy RN 12/27/20 12:10:08 [facility] IntraOp Departure from OR Audit 12/27/20 12:48:49 Pickers Material Handlers: PROFITDE Modifier: PROFITDE 1 <*> Patient Transport Accompanied by RACHID BRUMFIELD PA 12/27/20 12:43:55 Pickers Material Handlers: PROFITDE Modifier: PROFITDE 1 <*> Patient's Normal Integumentary OPSITE AND SURGICAL INTERVENTION SITES Variance(s) 1 <+> Post-op Transport Via [facility] IntraOp Drains and Tubes Entry 1 Device Type Chest Tube Size 36 FR. RIGHT ANGLED Drain/Tube Activity Inserted, Tube secured/stabilized Drain/Tube Suction Continuous low Drain/Tube Drainage Red Device Location STERNUM Method of Drainage Continuous suction Chest Tubes Water-Seal 20 cm suction Connectivity Tube Dressing Dry, Intact Condition Last Modified By: Leonora Joy RN 12/27/20 12:09:13 [facility] IntraOp Dressing and Packing Entry 1 Type Dressing Location STERNUM Wound Dressing Item Skin Closure Glue Tape Type Paper Applied By RACHID BRUMFIELD PA Other Comments BONI COLLINS Last Modified By: Leonora Joy RN 12/27/20 12:08:16 [facility] IntraOp Fire Risk Assessment Entry 1 [...] Modified By: Leonora Joy RN 12/27/20 11:52:40 [facility] IntraOp General Case Employment Trainer 1 Case Information OR OR 14 [facility] Case Level 1 Room Verified Yes Wound Class I - Clean Specialty Cardio Thoracic Anesthesia Type General ASA Class 4E Diagnosis Preop Diagnosis CARDIAC TAMPONADE Postop Same As Preop Yes Postop Diagnosis CARDIAC TAMPONADE Last Modified By: Leonora Joy RN 12/27/20 12:08:50 [facility] IntraOp General Case Data Audit 12/27/20 12:08:50 Pickers Material Handlers: PROFITDE Modifier: PROFITDE <+> 1 ASA Class <+> 1 Preop Diagnosis <+> 1 Postop Diagnosis 12/27/20 11:54:29 Pickers Material Handlers: PROFITDE Modifier: PROFITDE 1 <*> OR Add-On 02 [facility] 1 <+> Anesthesia Type 1 <+> Postop Same As Preop 1 <+> Room Verified [facility] IntraOp Intraoperative Assessment Entry 1 Handoff [...] Modified By: Leonora Joy RN 12/27/20 11:57:17 [facility] IntraOp Intraoperative Assessment Audit 12/27/20 12:21:20 Pickers Material Handlers: ELVIRA Modifier: BINADE 1 <*> Level of Consciousness (WDL = WDL Alert, Oriented to Person, Place, and Time) 1 <*> Present Upon Arrival to OR IVs [facility] IntraOp Intraoperative Equipment Entry 1 Type Equipment Equipment Intraop Monitoring Electrocardiogram Five lead placement (ECG) Electrode Placement Blood Pressure Non-Invasive BP Device Source Blood Pressure Arterial Location Pulse Oximeter Hand, right Probe Site Antiembolic Devices Scopes Photo/Video Documentation Last Modified By: Leonora Joy RN 12/27/20 11:57:59 [facility] IntraOp Patient Positioning Entry 1 Procedure [...] Modified By: Leonora Joy RN 12/27/20 12:10:24 [facility] IntraOp Sign In Entry 1 Patient, [...] Modified By: Leonora Joy RN 12/27/20 11:54:54 [facility] IntraOp Sign Out Entry 1 RN [...] Modified By: Leonora Joy RN 12/27/20 12:45:47 [facility] IntraOp Skin Prep Entry 1 Procedure [...] Modified By: Leonora Joy RN 12/27/20 12:22:20 [facility] IntraOp Skin Prep Audit 12/27/20 12:22:20 Pickers Material Handlers: PROFITDE Modifier: PROFITDE 1 <*> Procedure Pericardial Window 1 <*> Integumentary Assessment WDL WDL 1 <+> WDL Patient Exceptions [facility] IntraOp Surgical Procedures Entry 1 Procedure Pericardial Window Additional PERICARDIAL WINDOW Procedure Description Primary Procedure Yes Primary Surgeon EMEKA MADERA MD-CAT Start 12/27/20 11:37:00 Stop 12/27/20 12:11:00 Anesthesia Type General Specialty Cardio Thoracic Wound Class I - Clean Last Modified By: Leonora Joy RN 12/27/20 12:08:19 [facility] IntraOp Surgical Procedures Audit 12/27/20 12:45:23 Pickers Material Handlers: PROFITDE Modifier: PROFITDE <+> 1 Stop 12/27/20 12:10:52 Pickers Material Handlers: PROFITDE Modifier: PROFITDE 1 <*> Procedure Pericardial Window 1 <*> Additional Procedure Description (PERICARDIAL WINDOW, POSS STERNOTOMY) [facility] IntraOp Temp Regulation Devices Entry 1 Temp Regulation Temperature Warm blankets, Warm Regulation Device blankets Temperature Full body Regulation Site Temperature Leonora Joy RN Regulation Device Applied by Temperature ON ARRIVAL AND Regulation Comment DEPARTURE FROM THE O.R. Last Modified By: Leonora Joy RN 12/27/20 12:06:51 [facility] IntraOP Time Out Entry 1 Procedure [...] Modified By: Leonora Joy RN 12/27/20 12:12:52 [facility] IntraOP Time Out Audit 12/27/20 12:12:52 Pickers Material Handlers: PROFITDE Modifier: PROFITDE 1 <*> Procedure to be Performed Pericardial Window 1 <*> Time Out Comment DR. CRUZ STATED NO NEED FOR ADDITIONAL ANTIBIOTIC, ALREADY RECEIVED THIS MORNING 12/27/20 11:57:30 Pickers Material Handlers: PROFITDE Modifier: PROFITDE 1 <*> Beta Shasta Administered Yes 1 <*> Procedure to be Performed Pericardial Window Case Comments <None> Finalized By: TERRIE LOOMIS Document Signatures Signed By: Leonora Joy RN 12/27/20 12:48 TERRIE LOOMIS 12/31/20 11:24 Unfinalized History Date/Time Username Reason for Unfinalizing Freetext Reason for Unfinalizing 12/31/20 11:21 KOMAL Correct Billing Electronically signed by Olinda Payne Conversion Applications Engineer Manufacturing Cerner at 11/10/2022 9:23 AM CDT documented in this encounter Plan of Treatment Not on file documented as of this encounter Visit Diagnoses Not on filedocumented in this encounter Care Teams Mechanic Welder Truck Driver Relationship Specialty Start Date End Date Robert Batista MD [address], [place] [id number] PCP - General Family Medicine 07/04/25 documented as of this encounter
--- OUTSIDE RECORDS SUMMARY | 2025-07-11 04:30 | XMS_ITS | Encounter Summary ---
Author Organization [employer] ([place], [place], [place], [place], [place]) Address [address] [place] [address] Care Team Providers Care Dispensary Attendant Name Role Phone Robert Batista MD Primary Care Provider [phone] Encounter Details Date Type Department Care Team (Late st Contact Info) Description 11/15/2019 Transcribed Document [facility] [place] [address] ProviderMacrina MD [address] [place] [address] Social History Tobacco Use Types Packs/Day Years Used Date Smoking Tobacco: Never Assessed Sex and Gender Information Value Date Recorded Sex Assigned at Not on file Legal Sex Male 1:13 PM CDT Gender Identity Not on file Sexual Orientation Not on file documented as of this encounter Miscellaneous Notes * Cerner Conversion Note - Macrina Cordova MD - 11/15/2019 1:50 PM CDT Nursing Discharge [...] Evaluation : Returns demonstration, Verbalizes understanding JASON TAVAREZ, RN - 11/15/2019 13:50 EDT Electronically signed by [facility] Conversion Weigher And Charger Cerner at 11/10/2022 9:13 AM CDT documented in this encounter Plan of Treatment Not on file documented as of this encounter Visit Diagnoses Not on filedocumented in this encounter Care Teams Dispensary Attendant Relationship Specialty Start Date End Date Robert Batista MD [address] [place] [address] PCP - General Family Medicine 07/04/25 documented as of this encounter
--- OUTSIDE RECORDS SUMMARY | 2025-07-11 04:30 | XMS_ITS | Encounter Summary ---
Author Organization [employer] ([place], [place], [place], [place], [place]) Address [address] [place] [address] Care Team Providers Care Slip Cover Cutter Name Role Phone Robert Batista MD Primary Care Provider [phone] Encounter Details Date Type Department Care Team (Late st Contact Info) Description 12/30/2020 Transcribed Document [facility] [place] [address] [place] [address] ProviderMacrina MD [address] [place] [address] Social History Tobacco Use Types Packs/Day Years Used Date Smoking Tobacco: Never Assessed Sex and Gender Information Value Date Recorded Sex Assigned at Not on file Legal Sex Male 1:13 PM CDT Gender Identity Not on file Sexual Orientation Not on file documented as of this encounter Miscellaneous Notes * Cerner Conversion Note - Macrina ProviderMD - 12/30/2020 5:00 AM CDT Height and Weight, Routine Entered On: 12/30/2020 6:56 EDT Performed On: 12/30/2020 5:00 EDT by RON URENA, RN Height and Weight, Routine Routine Weight Source : Bed scale Routine Weight Entry Format : Metric Routine Weight, Kilograms : 78.6 kg(Converted to: 173 lb 5 oz) Routine Weight Calculation : 78.6 kg Height Source : Measured Height Entry Format : Hill Height, Feet : 0 ft Height, Inches : 67.75 Inch Clinical Height : 172.09 cm Body Surface Area (BSA), Routine : 1.92 m2 Body Mass Index (BMI), Routine : 26.54 kg/m2 RON URENA RN - 12/30/2020 6:56 EDT Electronically signed by lEmer [facility] Conversion Blood And Plasma Laboratory Assistant Cerner at 11/10/2022 9:13 AM CDT documented in this encounter Plan of Treatment Not on file documented as of this encounter Visit Diagnoses Not on filedocumented in this encounter Care Teams Slip Cover Cutter Relationship Specialty Start Date End Date Robert Batista MD [address] [place] [phone] PCP - General Family Medicine 07/04/25 documented as of this encounter
--- OUTSIDE RECORDS SUMMARY | 2025-07-11 04:30 | XMS_ITS | Encounter Summary ---
Author Organization [employer] ([place], [place], [place], [place], [place]) Address [address] [place] [address] Care Team Providers Care Rabbit Fancier Name Role Phone Robert Batista MD Primary Care Provider [phone] Encounter Details Date Type Department Care Team (Late st Contact Info) Description 12/30/2020 Transcribed Document [facility] [place] [facility] [place] [address] ProviderMacrina MD [address] [place] [address] Social History Tobacco Use Types Packs/Day Years Used Date Smoking Tobacco: Never Assessed Sex and Gender Information Value Date Recorded Sex Assigned at Not on file Legal Sex Male 1:13 PM CDT Gender Identity Not on file Sexual Orientation Not on file documented as of this encounter Miscellaneous Notes * Cerner Conversion Note - Macrina ProviderMD - 12/30/2020 9:[address] [...] on filedocumented in this encounter Care Teams Rabbit Fancier Relationship Specialty Start Date End Date Robert Batista MD [address] [place], [place] [phone] PCP - General Family Medicine 07/04/25 documented as of this encounter
--- OUTSIDE RECORDS SUMMARY | 2025-07-11 04:30 | XMS_ITS | Encounter Summary ---
Author Organization [employer] ([place], [place], [place], [place], [place]) Address [address] [place] [address] Care Team Providers Care Instant Potato Processor Name Role Phone Robert Batista MD Primary Care Provider Encounter Details Date Type Department Care Team (Late st Contact Info) Description 12/27/2020 Transcribed Document [facility] Cardiology [address] [place] [address] [place] [address] [place] [address] [address] [place] [address] Social History Tobacco Use Types Packs/Day Years [...] first and second operators. As a third textile machine operator participated in the procedure including image interpretation, vascular access and closure, preparation of wires and catheters and verification of valve orientation. This procedure was going as planned until the time when the valve was across the afognak aortic valve and being positioned when the [...] effusion and drainage and critical care management. /[id number] MD NIXON Gandhi/STACIE / NIXON / MODL /[id number] documented in this encounter Plan of Treatment Not on file documented as of this encounter Visit Diagnoses Not on filedocumented in this encounter Care Teams Instant Potato Processor Relationship Specialty Start Date End Date Robert Batista MD [address] [place], [place] [id number] PCP - General Family Medicine 07/04/25 documented as of this encounter
--- OUTSIDE RECORDS SUMMARY | 2025-07-11 04:30 | XMS_ITS | Encounter Summary ---
Author Organization [employer] ([place], [place], [place], [place], [place]) Address [address] [place] [address] Care Team Providers Care Health Information Technologist Name Role Phone Robert Batista MD Primary Care Provider [phone] Encounter Details Date Type Department Care Team (Late st Contact Info) Description 12/27/2020 Transcribed Document [facility] [place] [address] ProviderMacrina MD [address] [place] [address] Social History Tobacco Use Types Packs/Day Years Used Date Smoking Tobacco: Never Assessed Sex and Gender Information Value Date Recorded Sex Assigned at Not on file Legal Sex Male 1:13 PM CDT Gender Identity Not on file Sexual Orientation Not on file documented as of this encounter Miscellaneous Notes * Cerner Conversion Note - Macrina Cordova MD - 12/27/2020 6:03 PM CDT Consult Phone Call Documentation Entered On: 12/27/2020 22:22 EDT Performed On: 12/27/2020 18:03 EDT by Manny Spencer, RN Phone Call for Consults Consult Phone Call/Page Attempt : First call Provider Service Notified Name : Cardiology Physician Covering for Consult : DANYELLE WALTERS MD-Manny Murray, RN - 12/27/2020 22:22 EDT Electronically signed by [facility] Conversion Store Promoter Cerner at 11/10/2022 9:19 AM CDT documented in this encounter Plan of Treatment Not on file documented as of this encounter Visit Diagnoses Not on filedocumented in this encounter Care Teams Health Information Technologist Relationship Specialty Start Date End Date Robert Batista MD [address] [place] [address] PCP - General Family Medicine 07/04/25 documented as of this encounter
--- OUTSIDE RECORDS SUMMARY | 2025-07-11 04:30 | XMS_ITS | Encounter Summary ---
Author Organization [employer] ([place], [place], [place], [place], [place]) Address [address] [place] [address] Care Team Providers Care Scientific Associate Name Role Phone Robert Batista MD Primary Care Provider Encounter Details Date Type Department Care Team (Late st Contact Info) Description 12/27/2020 Transcribed Document [facility] [place] [address] [place] [address] ProviderMacrina MD [address] [place], [place] [id number] Social History Tobacco Use Types Packs/Day Years Used Date Smoking Tobacco: Never Assessed Sex and Gender Information Value Date Recorded Sex Assigned at Not on file Legal Sex Male 1:13 PM CDT Gender Identity Not on file Sexual Orientation Not on file documented as of this encounter Miscellaneous Notes * Cerner Conversion Note - Macrina ProviderMD - 12/27/2020 1:10 PM CDT Spiritual Care Assessment Entered On: 12/27/2020 13:52 EDT Performed On: 12/27/2020 13:10 EDT by BRISSA SULLIVAN General Information Initial Visit : No Referred by : Turret Lathe Set Up Operator follow-up Referral Reason Comment : Critical care [...] supported, Feelings expressed, Information provided Spiritual and Samaritan : Spiritual/Samaritan support provided BRISSA SULLIVAN 12/27/2020 13:50 EDT documented in this encounter Plan of Treatment Not on file documented as of this encounter Visit Diagnoses Not on filedocumented in this encounter Care Teams Scientific Associate Relationship Specialty Start Date End Date Robert Batista MD [address] [place], [place] [phone] PCP - General Family Medicine 07/04/25 documented as of this encounter
--- OUTSIDE RECORDS SUMMARY | 2025-07-11 04:30 | XMS_ITS | Encounter Summary ---
Author Organization [employer] ([place], [place], [place], [place], [place]) Address [address] [place] [address] Care Team Providers Care Cake Froster Name Role Phone Robert Batista MD Primary Care Provider [phone] Encounter Details Date Type Department Care Team (Late st Contact Info) Description 01/07/2021 Transcribed Document [facility] [place] [facility] [place] [address] ProviderMacrina MD [address] [place] [address] Social History Tobacco Use Types [...] On: 01/07/2021 9:35 EDT by ANDREIA TITUS CIGAR SORTER General Information Visit Type, CIGAR SORTER : Initial evaluation Patient Orders : Speech Language Pathology Evaluation and Treatment -111 Start: 01/07/21 10:06:00 EDT, Routine, For Speech Language Cognitive Eval and Treat - ANTHONY JACOBO PA Speech Language Pathology Swallow Evaluation and Treatment - Start: 01/07/21 7:00:00 EDT, Routine, For Swallow Eval and Treat -111 ANTHONY JACOBO PA Admission Date : Admission Date/Time: 12/27/20 06:39:00 Medical Chart Reviewed, CIGAR SORTER : Yes Personal Devices : Personal Devices [...] stenosis 12/28/2020 12:00 Polyneuropathy, unspecified Therapy Diagnosis, CIGAR SORTER : Overt patterns of oropharyngeal dysphagia. Not [...] corpak Multiple Intubations : Yes Intubation Comment, CIGAR SORTER : 12/27-12/31, reintubated 01/01-01/05 Vital Signs RTF [...] 10:07 EDT General Status Patient Received Status, CIGAR SORTER : Sitting edge of bed Patient Left Status, CIGAR SORTER : Long sitting in bed ANDREIA TITUS SLP - 01/07/2021 10:07 EDT Pain Assessment Pain Scaled Used : 0-10 Pain scale Pain Score Pre-Intervention : 5 Pain Comment : pain in his chest. Alerted RN. ANDREIA TITUS SLP - 01/07/2021 10:07 EDT Image 1 - Images currently included in the form version of this document have not been included in the text rendition version of the form. Oral Mechanism Dysarthria : Yes Brief Phonation Quality : Hoarse (Comment: mild [ANDREIA TITUS SLP - 01/07/2021 10:07 EDT] ) CIGAR SORTER Cough : Weak Facial Appearance: : Asymmetrical, [...] : Ice chips, Thin by spoon ANDREIA TITUS SLP - 01/07/2021 10:07 EDT Swallow Impressions Impressions, [...] - 01/07/2021 10:07 EDT Therapy Indication Assessment CIGAR SORTER Indicated : Yes CIGAR SORTER Problem List : Impaired, Swallowing Potential Barriers to CIGAR SORTER : Acuity of illness, Cognitive deficit CIGAR SORTER Rehabilitation Potential : Good ANDREIA TITUS SLP - 01/07/2021 10:07 EDT Swallow Plan/Goals Treatment Frequency, CIGAR SORTER : 5 times per wk Treatment Plan Est w/Pt/Caregvr, Swallow : Yes Treatment Duration, CIGAR SORTER : Two weeks Therapy at Next Level of Care, CIGAR SORTER : Acute inpatient rehab, prison facility ANDREIA TITUS SLP - 01/07/2021 10:07 EDT Swallow LTG Grid CIGAR SORTER Corrugator Helper Goal #1 CIGAR SORTER Correction Goal #2 Swallow LTG : Establish safe [...] ANDREIA TITUS SLP - 01/07/2021 10:07 EDT CIGAR SORTER Education Assessment Grid 1 Aspiration : Needs [...] ANDREIA TITUS SLP - 01/07/2021 10:07 EDT CIGAR SORTER Education Assessment Grid 2 Treatment Plan : Verbalizes understanding, Needs further teaching ANDREIA TITUS SLP - 01/07/2021 10:[address] CIGAR SORTER Charges Evaluation Swallowing Function : 1 ANDREIA TITUS SLP - 01/07/2021 10:07 EDT Anticipated Discharge Needs, CIGAR SORTER Anticipated Discharge to : Extended Care Facility, Rehab, high intensity Recommend Continued Therapy at Discharge : No ANDREIA TITUS SLP - 01/07/2021 10:07 EDT Electronically signed by Elmer [facility] Conversion Transaction Coordinator Cerner at 11/10/2022 9:09 AM CDT documented in this encounter Plan of Treatment Not on file documented as of this encounter Visit Diagnoses Not on filedocumented in this encounter Care Teams Cake Froster Relationship Specialty Start Date End Date Robert Batista MD [address], [place] [address] PCP - General Family Medicine 07/04/25 documented as of this encounter
--- OUTSIDE RECORDS SUMMARY | 2025-07-11 04:30 | XMS_ITS | Encounter Summary ---
Author Organization [employer] ([place], [place], [place], [place], [place]) Address [address] [place] [address] Care Team Providers Care Export Clerk Name Role Phone Robert Batista MD Primary Care Provider [phone] Encounter Details Date Type Department Care Team (Late st Contact Info) Description 12/30/[address] [facility] Radiology [address] [place] [address] Abby Rodrigues MD [address] [place] [address] Social History Tobacco Use Types Packs/Day Years [...] Basic Information PCP: Robert Batista MD Primary Chip Mixer: Arthur Gomez MD Subjective on vent. moving [...] 24 Hours) Radiology Results (Last 48 hours) [id number] -- 12/27/2020 06:39 CR Chest 1 Vw [...] s/p pericardiocentesis and surgical repain of [place]. PEA Arrest; CODE called 10 minutes to [...] on filedocumented in this encounter Care Teams Export Clerk Relationship Specialty Start Date End Date Robert Batista MD [address] [place], [place] [address] PCP - General Family Medicine 07/04/25 documented as of this encounter
--- OUTSIDE RECORDS SUMMARY | 2025-07-11 04:30 | XMS_ITS | Encounter Summary ---
Author Organization [employer] ([place], [place], [place], [place], [place]) Address [address] [place] [address] Care Team Providers Care Flying Shear Operator Name Role Phone Robert Batista MD Primary Care Provider [phone] Encounter Details Date Type Department Care Team (Late st Contact Info) Description 11/15/2019 Transcribed Document [facility] [place] Family Medicine [address] [place] [address] ProviderMacrina MD [address] [place] [address] Social History Tobacco Use Types Packs/Day Years Used Date Smoking Tobacco: Never Assessed Sex and Gender Information Value Date Recorded Sex Assigned at Not on file Legal Sex Male 1:13 PM CDT Gender Identity Not on file Sexual Orientation Not on file documented as of this encounter Miscellaneous Notes * Cerner Conversion Note - Macrina Cordova MD - 11/15/2019 1:53 PM CDT Stroke/Warfarin Instructions [...] on filedocumented in this encounter Care Teams Flying Shear Operator Relationship Specialty Start Date End Date Robert Batista MD [address] [place] [address] PCP - General Family Medicine 07/04/25 documented as of this encounter
--- OUTSIDE RECORDS SUMMARY | 2025-07-11 04:30 | XMS_ITS | Encounter Summary ---
Author Organization [employer] ([place], [place], [place], [place], [place]) Address [address] [place] [address] Care Team Providers Care Fit Model Name Role Phone Robert Batista MD Primary Care Provider [phone] Encounter Details Date Type Department Care Team (Late st Contact Info) Description 01/18/2021 Transcribed Document [facility] [place] [address] [place] [address] ProviderMacrina MD [address] [place] [address] Social History Tobacco Use Types Packs/Day Years Used Date Smoking Tobacco: Never Assessed Sex and Gender Information Value Date Recorded Sex Assigned at Not on file Legal Sex Male 1:13 PM CDT Gender Identity Not on file Sexual Orientation Not on file documented as of this encounter Miscellaneous Notes * Cerner Conversion Note - Macrina ProviderMD - 01/18/2021 3:37 PM CDT Event Note Entered On: 01/18/2021 15:38 EDT Performed On: 01/18/2021 15:37 EDT by Misty Schmitt Lpn Event Note Event Date/Time : 01/18/2021 15:37 EDT Description of Event : pt report given to Maryann HOWE @ [facility] via phone pt to be picked up by [facility] gualberto @ [phone]. Misty Schmitt Lpn - 01/18/2021 15:37 EDT Electronically signed by Elmer [facility] Conversion Claims Support Specialist Cerner at 11/10/2022 9:23 AM CDT documented in this encounter Plan of Treatment Not on file documented as of this encounter Visit Diagnoses Not on filedocumented in this encounter Care Teams Fit Model Relationship Specialty Start Date End Date Robert Batista MD [address], [place] [address] PCP - General Family Medicine 07/04/25 documented as of this encounter
--- OUTSIDE RECORDS SUMMARY | 2025-07-11 04:30 | XMS_ITS | Encounter Summary ---
Author Organization [employer] ([place], [place], [place], [place], [place]) Address [address] [place] [address] Care Team Providers Care Olericulture Teacher Name Role Phone Robert Batista MD Primary Care Provider [phone] Encounter Details Date Type Department Care Team (Late st Contact Info) Description 12/27/2020 Transcribed Document [facility] [place] [facility] [place] [address] ProviderMacrina MD [address] [place] [place] [id number] Social History Tobacco Use Types Packs/Day Years [...] Problems Aortic stenosis, severe / SNOMED CT 3987658683 / Confirmed Hypertension / SNOMED CT 57698813 / Confirmed Hyperlipidemia / SNOMED CT 26427612 / Confirmed HTN - Hypertension / SNOMED CT 3234080741 / Confirmed H/O peripheral neuropathy / SNOMED CT 615847846 / Confirmed feet tingle all the time GERD - Gastro-esophageal reflux disease / SNOMED CT 8764230308 / Confirmed Disorder of prostate / SNOMED CT 00282575 / Confirmed Colorectal surgery / SNOMED CT 3533166568 / Confirmed Back pain, chronic / SNOMED CT 750126917 / Confirmed Chronic anxiety / SNOMED CT 231651386 / Confirmed At risk for sleep apnea / IMO 28617702 / Confirmed Arthritis of right knee / SNOMED CT 4220762838 / Confirmed Aortic valve stenosis / SNOMED CT 389915984 / Confirmed 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, Active Problems (13) Aortic stenosis, severe Aortic [...] (DEC 27 06:00) Mon HR 79 (DEC 03 10:30) 68 (DEC 27 10:15) 79 (DEC 27 10:30) Resp Rate 15 (DEC 27 10:30) 15 (DEC 27 10:26) H 21 (DEC 27 10:15) SBP H 174 (DEC 27 06:00) H 174 (DEC 27 06:00) H 174 (DEC 27 06:00) DBP 81 (DEC 27 06:00) 81 (DEC 27 06:00) 81 (DEC 27 06:00) MAP 65 (DEC 03 10:30) 40 (DEC 27 10:26) 72 (DEC 27 10:15) SpO2 L 93 (DEC 03 10:30) L 92 (DEC 27 10:26) 99 [...] 42.2 12/27/2020 12:11 pO2 Art POC 245.0 CT 12/27/2020 12:11 HCO3 Art POC 18.9 LOW 12/27/2020 12:11 tCO2 Art POC 20.0 LOW 12/27/2020 12:11 BE Art POC -8.0 LOW 12/27/2020 12:11 sO2 Art POC >99.9 CT 12/27/2020 12:11 ABG Num of Draw Attempts [...] my note later today Electronically signed by Elmer [facility] Conversion Court Magistrate Cerner at 11/10/2022 9:22 AM CDT documented in this encounter Plan of Treatment Not on file documented as of this encounter Visit Diagnoses Not on filedocumented in this encounter Care Teams Olericulture Teacher Relationship Specialty Start Date End Date Robert Batista MD [address], [place] [id number] PCP - General Family Medicine 07/04/25 documented as of this encounter
--- OUTSIDE RECORDS SUMMARY | 2025-07-11 04:30 | XMS_ITS | Encounter Summary ---
Author Organization [employer] ([place], [place], [place], [place], [place]) Address [address] [place] [address] Care Team Providers Care Public Speaker Name Role Phone Robert Batista MD Primary Care Provider [phone] Encounter Details Date Type Department Care Team (Late st Contact Info) Description 12/27/2020 Transcribed Document [facility] [place] [address] [place] [address] ProviderMacrina MD [address] [place] [address] Social History Tobacco Use Types Packs/Day Years [...] on filedocumented in this encounter Care Teams Public Speaker Relationship Specialty Start Date End Date Robert Batista MD [address] [place] [address] PCP - General Family Medicine 07/04/25 documented as of this encounter
--- OUTSIDE RECORDS SUMMARY | 2025-07-11 04:30 | XMS_ITS | Encounter Summary ---
Author Organization [employer] ([place], [place], [place], [place], [place]) Address [address] [place] [address] Care Team Providers Care Family Worker Name Role Phone Robret Batista MD Primary Care Provider [phone] Encounter Details Date Type Department Care Team (Late st Contact Info) Description 01/18/2021 Transcribed Document [facility] [place] [facility] [place] [address] ProviderMacrina MD [address] [place] [address] Social History Tobacco Use Types Packs/Day Years Used Date Smoking Tobacco: Never Assessed Sex and Gender Information Value Date Recorded Sex Assigned at Not on file Legal Sex Male 1:13 PM CDT Gender Identity Not on file Sexual Orientation Not on file documented as of this encounter Miscellaneous Notes * Cerner Conversion Note - Macrina Cordova MD - 01/18/2021 10:52 AM CDT Meds to Bed Enrollment Entered On: 01/18/2021 10:52 EDT Performed On: 01/18/2021 10:52 EDT by Jordan Michelle PHARMACY TECH LEAD Meds to Bed Enrollment Patient Enrollment Decision: : No/do not enroll in meds to bed program Reason for Declining Meds to Bed Program: : Discharge to facility Jordan Michelle PHARMACY TECH LEAD - 01/18/2021 10:52 EDT documented in this encounter Plan of Treatment Not on file documented as of this encounter Visit Diagnoses Not on filedocumented in this encounter Care Teams Family Worker Relationship Specialty Start Date End Date Robert Batista MD [address], [place] [address] PCP - General Family Medicine 07/04/25 documented as of this encounter
--- OUTSIDE RECORDS SUMMARY | 2025-07-11 04:30 | XMS_ITS | Encounter Summary ---
Author Organization [employer] ([place], [place], [place], [place], [place]) Address [address] [place] [address] Care Team Providers Care Citrix Consultant Name Role Phone Perico Awan MD Primary Care Provider [phone] Encounter Details Date Type Department Care Team (Late st Contact Info) Description 11/15/2019 Transcribed Document [facility] [place] [facility] [place] [address] ProviderMacrina MD [address] [place] [address] Social History Tobacco Use Types Packs/Day Years Used Date Smoking Tobacco: Never Assessed Sex and Gender Information Value Date Recorded Sex Assigned at Not on file Legal Sex Male 1:13 PM CDT Gender Identity Not on file Sexual Orientation Not on file documented as of this encounter Miscellaneous Notes * Cerner Conversion Note - Macrina Cordova MD - 11/15/2019 1:54 PM CDT [facility] [place] [address] JOSE ADORNO :1940 Visit Time:11/15/2019 Your Visit Summary Your Care Team Admitting Physician - DANYELLE GOMEZ MD-CAR Attending Physician - DANYELLE GOMEZ MD-CAR Primary Care Physician - PERICO AWAN (REF)MD-MARKOS Referring Physician - DANYELLE GOMEZ MD-CAR Your [...] visit. Please call Marissa Mckay to arrange [phone]. Where: [address] [facility] [address] [facility] (1) Medications What How Much When Instructions [...] and water are not available, use hand professor of medicine. ? Change your dressing as told by [...] contrast dye from your body. ??? Take qjyk-rkq-cjvhnsm and prescription medicines only as told by [...] 01/29/2006 Document Revised: 06/17/2017 Document Reviewed: 06/17/2017 [employer] Patient Education ?? 2019 [employer]. Valvuloplasty, Care After This sheet gives you [...] and water are not available, use hand professor of medicine. ? Change your dressing as told by [...] health care provider. General instructions ??? Take kqdx-eak-moaukil and prescription medicines only as told by your health care provider. ??? Do not take baths, swim, or use a hot tub until your health care provider approves. ??? To prevent or treat constipation while you are taking prescription pain medicine, your health care provider may recommend that you: ? Drink enough fluid to keep your urine clear or pale yellow. ? Take lwwd-qvp-iicisze or prescription medicines. ? Eat foods that [...] 11/27/2015 Document Revised: 06/09/2017 Document Reviewed: 06/09/2017 [employer] Patient Education ?? 2019 [employer]. Moderate Conscious Sedation, Adult, Care After These [...] you are awake and alert. ??? Take qfqp-key-xhnbpyo and prescription medicines only as told by [...] 05/03/2014 Document Revised: 12/15/2016 Document Reviewed: 11/01/2016 [employer] Patient Education ?? 2019 [employer]. Groin Site Care Refer to this sheet [...] Document Reviewed: 08/15/2011 ExitCare?? Patient Information ??2014 [employer]. Emergency Awareness and Preventative Care STROKE is [...] Assistance with quitting is available by contacting 0-894-JWXI-NOW. This is a free resource providing counseling, support, and referral. Or you may contact your personal physician. National Suicide Prevention Lifeline: The National Suicide Prevention [...] was given the opportunity to ask questions. Patient/Timing Adjuster Name: Patient/Timing Adjuster Signature: Relationship to Patient: Clinician/Hospital Timing Adjuster Signature: Date: Electronically signed by Elmer [facility] Conversion Building And Construction Manager Cerner at 11/10/2022 9:20 AM CDT documented in this encounter Plan of Treatment Not on file documented as of this encounter Visit Diagnoses Not on filedocumented in this encounter Care Teams Citrix Consultant Relationship Specialty Start Date End Date Perico Awan MD [address] [place] [address] PCP - General Family Medicine 07/04/25 documented as of this encounter
--- OUTSIDE RECORDS SUMMARY | 2025-07-11 04:30 | XMS_ITS | Clinical Summary ---
Author Organization [facility] Address [address] [place] [address] Care Team Providers Care Field Marketing Associate Name Role Phone Robert Batista MD Primary Care Provider [phone] Allergies No known active allergies Medications amLODIPine [...] Leukocytosis 08/14/2023 Overview (08/14/2023): Likely reactive CTM Resolved Problems Problem Noted Date Diagnosed Date Resolved Date Personal history of other di seases of the circulatory system 08/14/2023 08/14/2023 Mass of soft tissue of pelvis 03/25/2023 04/16/2025 Overview (08/14/2023): s/p undifferentiated pleomorphic sarcoma right buttock resection 03/25/23 Soft tissue mass 03/16/2023 04/16/2025 Immunizations Immunization Administration Dates Next Due Tdap [...] any time in the past 12 m [facility], were you homeless or living in [...] drink first t ember in the morning (EYE-PARTITION NOTCHER) to steady your nerves or to get rid of a hangover? 0 08/14/2023 CAGE Questionnaire Score 0 024 Utilities Answer Date Recorded In the past 12 months has e electric, gas, oil, or water company [...] Care Team (Late st Contact Info) Description 08/07/2025 9:00 AM EST Appointment [facility] [address] [place] [address] 08/07/2025 10:45 AM EST Office Visit [facility] [address] [place] [address] Darell Turcios MD [address] [facility] [address] [place] [address] Health Maintenance Due Date Last Done Comments [facility]-Bone Density Scan 1940 [facility]-Medicare Annual Wellness (AWV) 1940 [facility]-Infant/Child/Adol SDOH Screenings 1940 [facility]-Hepatitis A Vaccines (1 of 2 - Risk 2-dose series) 1959 [facility]-Pneumococcal Vaccine: 50+ Years (1 of 2 - PCV) 1959 [facility]-Zoster Vaccines (1 of 2) 1959 [facility]-RSV Vaccine: 60+ Years or (1 - 1-dose 75+ series) 2014 [facility]- SDOH Screenings 02/16/2025 [facility]-Adult SDOH Screenings 02/16/2025 08/19/2024 [facility]-EGDQA-35 Vaccine (6 - 2024- season) 2025 05/14/2022, 04/17/2021, 09/22/2020, Additional history exists [facility]-Influenza Vaccine (#1) 2025 [facility]-Depression Screening 02/06/2026 02/06/2025, 10/25 [facility]-DTaP,Tdap,and Td Vaccines (3 - Td or Tdap) 08/13/2033 08/13/2023, 07/27/2013 HPV Vaccines (No Doses Required) Completed [facility]-HIB Vaccines Aged Out No longer e [...] by 1 visit. Occupational Therapy [place] [address] [place] [address] [facility] MEDICARE Advance Directives * Full Code [...] Patient has decision-making capacity? Yes Care Teams Field Marketing Associate Relationship Specialty Start Date End Date Robert Batista MD [address] [place] [address] [address] [place] [address] PCP - General 12/07/20
--- OUTSIDE RECORDS SUMMARY | 2025-07-11 04:30 | XMS_ITS | Encounter Summary ---
Author Organization [employer] ([place], [place], [place], [place], [place]) Address [address] [place] [address] Care Team Providers Care Indoor Plant Technician Name Role Phone Robert Batista MD Primary Care Provider [phone] Encounter Details Date Type Department Care Team (Late st Contact Info) Description 01/18/2021 Transcribed Document [facility] [place] [address] [place] [address] ProviderMacrina MD [address] [place] [address] Social History Tobacco Use Types Packs/Day Years Used Date Smoking Tobacco: Never Assessed Sex and Gender Information Value Date Recorded Sex Assigned at Not on file Legal Sex Male 1:13 PM CDT Gender Identity Not on file Sexual Orientation Not on file documented as of this encounter Miscellaneous Notes * Viridiananer Conversion Note - Macrina ProviderMD - 01/18/2021 12:41 PM CDT Clinical Dietitian Note Entered On: 01/18/2021 12:41 EDT Performed On: 01/18/2021 12:41 EDT by Tamy Wolff Dietitian Clinical Dietitian Note Clinical Dietitian Note : 01/18: RD f/up. Pt discharging to [facility] today. S/p PEG placement on 01/17. RN reports TF was resumed this morning at 5AM and currently running @ 35ml/hr. Pt is tolerating well per RN with no residuals. Tamy Wolff Dietitian - 01/18/2021 12:41 EDT Electronically signed by Elmer [facility] Conversion Chandelier Maker Cerner at 11/10/2022 9:25 AM CDT documented in this encounter Plan of Treatment Not on file documented as of this encounter Visit Diagnoses Not on filedocumented in this encounter Care Teams Indoor Plant Technician Relationship Specialty Start Date End Date Robert Batista MD [address] [place] [place] [id number] PCP - General Family Medicine 07/04/25 documented as of this encounter
--- OUTSIDE RECORDS SUMMARY | 2025-07-11 04:31 | XMS_ITS | Encounter Summary ---
Author Organization [employer] ([place], [place], [place], [place], [place]) Address [address] [place] [address] Care Team Providers Care Cloth Classer Name Role Phone Robert Batista MD Primary Care Provider [phone] Encounter Details Date Type Department Care Team (Late st Contact Info) Description 11/15/2019 Transcribed Document [facility] [place] Family Medicine [address] [place] [address] ProviderMacrina MD [address] [place] [address] Social History Tobacco Use Types Packs/Day Years Used Date Smoking Tobacco: Never Assessed Sex and Gender Information Value Date Recorded Sex Assigned at Not on file Legal Sex Male 1:13 PM CDT Gender Identity Not on file Sexual Orientation Not on file documented as of this encounter Miscellaneous Notes * Cerner Conversion Note - Macrina Cordova MD - 11/15/2019 7:25 AM CDT Pre Procedure Adult Entered On: 11/15/2019 7:34 EDT Performed On: 11/15/2019 7:25 EDT by ASHLEY STAFFORD RN Height and Weight, Clinical Dosing Height Source : Stated Height Entry Format : [place] Height, Feet : 5 ft(Converted to: 152 cm, 60 Inch) Height, Inches : 8 Inch(Converted to: 0 ft 8 Inch, 20.32 cm) Clinical Height : 172.72 cm Weight Source : Standing scale Weight Entry Format : [place] Clinical Dosing Weight : 64.09 kg Weight, Pounds : 141 lb Body Surface Area (BSA) : 1.76 m2 Body Mass Index : 21.5 kg/m2 [place] Body Weight : 67 kg ASHLEY STAFFORD [...] 11/15/2019 07:26:36 EDT by ASHLEY STAFFORD RN) Infectious Disease History COVID19 Screening : No [...] ASHLEY STAFFORD RN - 11/15/2019 7:25 EDT [place] Suicide Severity Rating Scale (C-SSRS) CSSRS Past [...] Box Emergency Contact #1 Phone Number : [phone] Emergency Contact #1 Relationship : Emergency Contact #2 : na Emergency Contact #2 Phone Number : na Emergency Contact #2 Relationship : na Chief Complaint : heart cath/BAV Information Obtained From : Patient Primary Language : Tristanian Communication Barrier : None ASHLEY STAFFORD RN [...] ABCs Fall Injury Risk Identification : None OLIVAREZ Hx Falls Immediate/Within 3 Months : No Olivarez Secondary Diagnosis : No OLIVAREZ Use of Ambulatory Aid : None OLIVAREZ IV Therapy or IV Access : Yes Olivarez Gait/Transferring : Normal, bedrest, immobile Oilvarez Mental Status : Oriented to own ability Olivarez Fall Risk Score : 20 OLIVAREZ Fall Scale Risk Level : 0-24 Low Risk [place] Fall Interventions : Adequate lighting, Assistive devices [...] on filedocumented in this encounter Care Teams Cloth Classer Relationship Specialty Start Date End Date Robert Batista MD [address] [place] [address] PCP - General Family Medicine 07/04/25 documented as of this encounter
--- OUTSIDE RECORDS SUMMARY | 2025-07-11 04:31 | XMS_ITS | Clinical Summary ---
Author Organization [facility] Address [address] [place] [address] Phone Care Team Providers Care Cullet Crusher Name Role Phone Andre DAILY, Ben [facility] [phone] PERICO AWAN MD Primary Care Provider [phone] Reason for Visit and Chief Complaint SI joint injection Problems Includes: Problems addressed during this encounter and other active Problems All Visits Onset Date Date of Diagnosis Resolved Date Provider Condition Status Lower Back Pain 09/23/2021 09/23/2021 DOMINIQUE CADET PA-C Active Last Documented On 5 1:41AM ; [facility] Plan of Treatment Diagnosis: Sacroiliac OA Procedure: [...] - Last Documented On 03/04/2022 12:27PM ; [facility] Pending Tests Order Diagnosis Results Due Ordering P rovider Radiology - CT Scan Pelvis 02/27/22 Ben Powell MD Last Documented On 2 8:42AM ; [facility] Assessments Includes: Assessments from this encounter No Assessments Recorded Medical Equipment - Implanted Devices Includes: Current Devices No Medical Equipment Recorded Medications Includes: Medications discussed during this encounter and other current Medications Current Medications (continue as prescribed) Lidocaine 5% External Patch 10/30/2021 Provider: PERICO AWAN MD Diagnosis: Last Documented On 2 10:32AM By Aleida Haile ; [facility] Atorvastatin Calcium 40 MG Oral Tablet 10/16/2021 Pr ovider: PERICO AWAN MD Diagnosis: Last Documented On 2 10:32AM By Aleida Haile ; [facility] amLODIPine Besylate 5 MG Oral Tablet 09/27/2021 Prov ider: PERICO AWAN MD Diagnosis: Last Documented On 2 10:32AM By Aleida Haile ; [facility] Gabapentin 300 MG Oral Capsule 09/02/2021 Provider: BRUCE QUIJANO MD (N) Diagnosis: Last Documented On 2 2:24PM By Asia Toscano ; [facility], [facility] Lisinopril 10 MG Oral Tablet 07/27/2021 Provider: PERICO AWAN MD Diagnosis: Last Documented On 2 2:24PM By Asia Toscano ; [facility] Medications Administered Includes: Administered Medications from this encounter No Administered Medications Recorded Results Includes: Results discussed during this encounter No Results Recorded For Specified Dates History of Present Illness Includes: History of Present Illness from this encounter No History of Present Illness Recorded Social History Description Last Updated Sex - Male 05/28/2022 Last Documented On 2 9:12PM ; [facility] Smoking Status Unknown Medical History Includes: Medical History addressed during this encounter No Medical History Recorded Family History Includes: Family History addressed during this encounter No Family History Recorded Review of Systems Includes: Review of Systems from this encounter No Review of Systems Recorded Physical Exam Includes: Physical Exam from this encounter No Physical Exam Recorded Allergies Includes: Active Allergies No Known Allergies Care Cullet Crusher Name (Identifier) Role/Relation Location/Telecom Last Documented By Ben Powell MD ([id number]) Assigned practitioner (occupation) tel:[phone] Last Documented On 05/28/2022 9:12PM ; [facility], [facility] PERICO AWAN MD ([id number]) Primary care physician (occupation) [address] [place] [address], , [id number] tel:[phone] Last Documented On 05/28/2022 9:12PM ; [facility], [facility] Encounters Encounter Provider Location (Healthcare Service Location) Date Check-In Time Check-Out Time Diagnosis Encounter Disposition SI joint injection [facility] 2021 9:44AM 10:14AM Payer Includes: Active Insurance Policies Plan Name (Payer ID) Coverage Type Member ID Group # Subscriber (ID) Relationship Effective Dates 1 - Medicare Part B [facility] ([id number]) [id number] Francesco Adorno Self Last Documented On 2 12:25PM ; [facility] 2 - [employer] ([id number]) [id number] Francesco Adorno Self - Unknown Last Documented On 2 2:19PM ; [facility], [facility]
--- OUTSIDE RECORDS SUMMARY | 2025-07-11 04:31 | XMS_ITS | Encounter Summary ---
Author Organization [email or web address] ([place], [place], [place], [place], [place]) Address [address] [place] [address] Care Team Providers Care Gear Lapper Name Role Phone Robert Batista MD Primary Care Provider [phone] Encounter Details Date Type Department Care Team (Late st Contact Info) Description 12/03/2020 Transcribed Document [facility] [place] [address] [place] [address] ProviderMacrina MD [address] [place] [address] Social History Tobacco Use Types [...] Source : Stated Height Entry Format : [place] Height, Feet : 5 ft(Converted to: 152 cm, 60 Inch) Height, Inches : 8 Inch(Converted to: 0 ft 8 Inch, 20.32 cm) Clinical Height : 172.72 cm Weight Source : Standing scale Weight Entry Format : [place] Clinical Dosing Weight : 66.36 kg Weight, Pounds : 146 lb Body Surface Area (BSA) : 1.79 m2 Body Mass Index : 22.2 kg/m2 [place] Body Weight : 67 kg CINDY HAGAN [...] - Support Person/Pt Rep Contact Information : [phone] Want Family/Rep/Phys Notified of Admit : No Emergency Contact #1 : Evelia Adorno Emergency Contact #1 Emergency Contact #1 Relationship : Primary Language : Croatian Communication Barrier : None CINDY HAGAN RN [...] - 12/03/2020 13:53 EDT Electronically signed by [facility] Conversion Horse Groomer Cerner at 11/10/2022 9:14 AM CDT documented in this encounter Plan of Treatment Not on file documented as of this encounter Visit Diagnoses Not on filedocumented in this encounter Care Teams Gear Lapper Relationship Specialty Start Date End Date Robert Batista MD [address] [place] [address] PCP - General Family Medicine 07/04/25 documented as of this encounter
--- OUTSIDE RECORDS SUMMARY | 2025-07-11 04:31 | XMS_ITS | Encounter Summary ---
Author Organization [employer] ([place], [place], [place], [place], [place]) Address [address] [place] [address] Care Team Providers Care Bending Machine Operator Name Role Phone Robert Batista MD Primary Care Provider [phone] Encounter Details Date Type Department Care Team (Late st Contact Info) Description 01/18/2021 Transcribed Document [facility] Family Medicine [facility] [place] [address] ProviderMacrina MD [address] [place] [address] Social History Tobacco Use Types Packs/Day Years Used Date Smoking Tobacco: Never Assessed Sex and Gender Information Value Date Recorded Sex Assigned at Not on file Legal Sex Male 1:13 PM CDT Gender Identity Not on file Sexual Orientation Not on file documented as of this encounter Miscellaneous Notes * Cerner Conversion Note - Macrina ProviderMD - 01/18/2021 4:26 PM CDT TOTAL Crystalloid for the procedure: 800ml documented in this encounter Plan of Treatment Not on file documented as of this encounter Visit Diagnoses Not on filedocumented in this encounter Care Teams Bending Machine Operator Relationship Specialty Start Date End Date Robert Batista MD [address] [place] [address] PCP - General Family Medicine 07/04/25 documented as of this encounter
--- OUTSIDE RECORDS SUMMARY | 2025-07-11 04:31 | XMS_ITS | Encounter Summary ---
Author Organization [employer] ([place], [place], [place], [place], [place]) Address [address] [place] [address] Care Team Providers Care Compressor Service Technician Name Role Phone Unavailable Primary Care Provider Unavailabl e Reason for Visit * Reason Onset Date Comments clearance 06/29/2025 Encounter Details Date Type Department Care Team (Late st Contact Info) Description 06/29/2025 Telephone [facility] Cardiology [address] [place] [address] Arthur Gomez MD [address] [facility] [address] [place] [address] clearance Social History Tobacco Use Types Packs/Day Years [...] Date Derek rded Speak language other than [place] Zealander at home Not on file 02/17/2024 Want [...] encounter Miscellaneous Notes * Telephone Encounter - Aleida Salazar - 06/30/2025 9:59 AM EST Spoke to pt and have him scheduled for 07/04/25 with tova Merrill mailed M CONVEYOR OPERATOR * Telephone Encounter - Micaela Alvarez - 06/29/2025 3:[address] Doll's office and [facility] pre admissions requesting a clearance for a greenlight laser vaporization of prostate. Scheduled for 07/10/25 M CONVEYOR OPERATOR documented in this encounter Plan of Treatment Not on file documented as of this encounter Goals Goal Patient Goal Type Associated Problems Recent Progress Patient-Stated? Author Autogenerat ed Goal Care Plan Autogenerated Problem No Nimisha Haile documented as of this encounter Visit Diagnoses Not on filedocumented in this encounter Additional Health Concerns Active Problems Noted Date Diagnosed Date Autogenerated Problem 06/29/2025 documented as of this encounter
--- OUTSIDE RECORDS SUMMARY | 2025-07-11 04:31 | XMS_ITS | Encounter Summary ---
Author Organization [employer] ([place], [place], [place], [place], [place]) Address [address] [place] [address] Care Team Providers Care Tire Classifier Name Role Phone Robert Batista MD Primary Care Provider [phone] Encounter Details Date Type Department Care Team (Late st Contact Info) Description 01/18/2021 Transcribed Document [facility] [address] [place] [address] ProviderMacrina MD [address] [place] [address] Social History Tobacco Use Types [...] Misty Schmitt Lpn - 01/18/2021 16:05 EDT Electronically signed by [facility] Conversion Correctional Officer Captain Cerner at 11/10/2022 9:21 AM CDT documented in this encounter Plan of Treatment Not on file documented as of this encounter Visit Diagnoses Not on filedocumented in this encounter Care Teams Tire Classifier Relationship Specialty Start Date End Date Robert Batista MD [address] [place], [place] [address] PCP - General Family Medicine 07/04/25 documented as of this encounter
--- OUTSIDE RECORDS SUMMARY | 2025-07-11 04:31 | XMS_ITS | Encounter Summary ---
Author Organization [employer] ([place], [place], [place], [place], [place]) Address [address] [place] [address] Care Team Providers Care Field Care Coordinator Name Role Phone Robert Batista MD Primary Care Provider [phone] Encounter Details Date Type Department Care Team (Late st Contact Info) Description 01/18/2021 Transcribed Document [facility] [place] [facility] [place] [address] ProviderMacrina MD [address] [place] [address] Social History Tobacco Use Types [...] On: 01/18/2021 11:54 EDT by ASHLEY CHAIDEZ RN-Title One Kindergarten Teacher Final Discharge Planning Discharge Arrangements : Patient Post-Acute Information Patient Name: JOSE ADORNO Gender: Male : 38 Age: 80 Years [place] Referral(s): Service: Organization: Business Address: Phone Number: Acute Rehab [facility] [address] [place], [address] Patient Offered Choice/Affiliations Explained : Yes Designation of Choice Signed : Yes Important Medicare Message Reviewed With : Patient Important Medicare Message Reviewed D/T : 01/17/2021 9:30 EDT Transportation Needs : Wheelchair van Discharge Transportation Arrangement Cmt : [facility] at [address] Follow Up Appointment Scheduled : Yes Is Patient High/Moderate Readmission Risk? : No Patient/Family Notified of Plan : Yes Support Person/Pt Rep Notified of Plan : Yes Patient/Family Notified : Patient/Spouse Is Patient Ready for Discharge? : Yes Physician Notified Patient is Ready for Discharge? 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 in agreement with the plan. ASHLEY CHAIDEZ, RN-Title One Kindergarten Teacher - 01/18/2021 11:54 EDT documented in this encounter Plan of Treatment Not on file documented as of this encounter Visit Diagnoses Not on filedocumented in this encounter Care Teams Field Care Coordinator Relationship Specialty Start Date End Date Robert Batista MD [address] [place] [address] PCP - General Family Medicine 07/04/25 documented as of this encounter
--- OUTSIDE RECORDS SUMMARY | 2025-07-11 04:31 | XMS_ITS | Encounter Summary ---
Author Organization [employer] ([place], [place], [place], [place], [place]) Address [address] [place] [address] Care Team Providers Care Train System Operator Name Role Phone Robert Batista MD Primary Care Provider [phone] Encounter Details Date Type Department Care Team (Late st Contact Info) Description 01/18/2021 Transcribed Document [facility] [place] [facility] [place] [address] ProviderMacrina MD [address] [place] [address] Social History Tobacco Use Types Packs/Day Years Used Date Smoking Tobacco: Never Assessed Sex and Gender Information Value Date Recorded Sex Assigned at Not on file Legal Sex Male 1:13 PM CDT Gender Identity Not on file Sexual Orientation Not on file documented as of this encounter Miscellaneous Notes * Cerner Conversion Note - Macrina ProviderMD - 01/18/2021 3:50 PM CDT Discharge [...] Met : 01/10/2021 EDT 01/10/2021 EDT NEDA DAVIS, TAR ROOFER - 01/18/2021 15:50 EDT NEDA DAVIS PTA - 01/18/2021 15:50 EDT Etl Architect Goals Mobility/Bed Mobility LTG PT Grid Goal [...] on filedocumented in this encounter Care Teams Train System Operator Relationship Specialty Start Date End Date Robert Batista MD [address] [place] [address] PCP - General Family Medicine 07/04/25 documented as of this encounter
--- OUTSIDE RECORDS SUMMARY | 2025-07-11 04:31 | XMS_ITS | Encounter Summary ---
Author Organization [employer] ([place], [place], [place], [place], [place]) Address [address] [place] [address] Care Team Providers Care Client Advisor Name Role Phone Perico Awan MD Primary Care Provider [phone] Encounter Details Date Type Department Care Team (Late st Contact Info) Description 01/18/2021 Transcribed Document [facility] [facility] [place] [address] ProviderMacrina MD [address] [place] [address] Social History Tobacco Use Types [...] Cordova MD - 01/18/2021 4:09 PM CDT [facility] [address] [place] [id number] JOSE ADORNO :1940 Visit Time:12/27/2020 Your Visit Summary Your Care Team Primary Care Physician - PERICO AWAN (REF)ROSIO Referring Physician - PERICO AWAN (REF)ROSIO Your [...] do next Instructions From Your Care Team [facility] Number for Report: [phone] Fax for Discharge Summary: [phone] Transportation: [facility] Van at 1615 Follow-Up Appointments Follow Up with DANYELLE WALTERS When 02/08/2021 11:00 AM EDT Comments ECHO same day, prior to follow up appointment with Dr. Crawford. Arrive at [facility] at 9am. Where: [address] [place] [id number]- Business (1) Follow Up with EMEKA MADERA When 02/05/2021 10:15 AM EDT Comments Appointment has been made Where: [address] [facility] [address] [place] [id number]- Business (1) Follow Up with FIOT MEDRANO When Within 6 weeks Comments Hospital f/u for stroke; Call for follow up appointment when discharged from Rehab Where: [address] [place] [address]- Business (1) Follow Up with PERICO AWAN MD When Within 5 to 7 days Comments Call for follow up appointment when discharged from Rehab Where: [address] [place] [address]- Follow Up with [facility] When Within 6 weeks Comments [...] including vitamins, herbs, eye drops, creams, and [id number]-[id number] medicines. ??? Any problems you or family [...] Assistance with quitting is available by contacting 6-958-TKJENOW. This is a free resource providing counseling, support, and referral. Or you may contact your personal physician. Install[employer] Suicide Prevention Lifeline: The National Suicide Prevention [...] range between ( 0.0 and 7.0 ) [place] #: 1.00 K/uL -- Normal range between ( 0.16 and 1.00 ) [place] #: 0.52 x10(3)/uL -- Normal range between ( 0.00 and 0.80 ) [place] %: 8.5 % -- Normal range between [...] ) Urine Bilirubin Dipstick: Negative Urine Specific [place]: 1.017 -- Normal range between ( 1.005 [...] was given the opportunity to ask questions. Patient/Combo Welder Name: Patient/Combo Welder Signature: Relationship to Patient: Clinician/Hospital Combo Welder Signature: Date: documented in this encounter Plan of Treatment Not on file documented as of this encounter Visit Diagnoses Not on filedocumented in this encounter Care Teams Client Advisor Relationship Specialty Start Date End Date Perico Awan MD [address] [place] [id number] PCP - General Family Medicine 07/04/25 documented as of this encounter
--- OUTSIDE RECORDS SUMMARY | 2025-07-11 04:31 | XMS_ITS ---
Author Organization [facility] Address [address] [place] [address] Phone Care Team Providers Care Inspector Wreath Name Role Phone Andre DAILY, Ben Unavailable [phone] PERICO AWAN MD Primary Care Provider [phone] Reason for Referral 05/01/2022 Encounter for Follow Up Date Recorded Target Due Date Referral Type Referring Prov ider Reason For Referral 05/01/2022 Ben Powell MD referr al to physician Last Documented On 2 9:00AM ; [facility] 05/01/2022 Ben Powell MD referr al to physician Last Documented On 2 9:02AM ; [facility] 04/07/2022 Encounter for Follow Up Date Recorded Target Due Date Referral Type Referring Prov ider Reason For Referral 04/07/2022 Ben Powell MD referr al to physician Last Documented On 2 10:25AM ; [facility] 02/13/2022 Encounter for Follow Up Date Recorded Target Due Date Referral Type Referring Prov ider Reason For Referral 02/13/2022 Ben Powell MD referr al to physician Last Documented On 2 9:46AM ; [facility] 02/13/2022 Ben Powell MD referr al to physician Last Documented On 2 9:49AM ; [facility] 11/07/2021 Encounter for Follow Up Date Recorded Target Due Date Referral Type Referring Prov ider Reason For Referral 11/07/2021 Ben Powell MD referr al to physician Last Documented On 2 10:25AM ; [facility] 09/23/2021 Encounter for Physician Specified Date Recorded Target Due Date Referral Type Referring Prov ider Reason For Referral 09/23/2021 DOMINIQUE CADET PA-C referral to physician Last Documented On 2 2:25PM ; [facility] Problems Includes: Active, inactive, and resolved Problems All Visits Onset Date Date of Diagnosis Resolved Date Provider Condition Status Lower Back Pain 09/23/2021 09/23/2021 DOMINIQUE CADET PA-C Active Last Documented On 5 1:41AM ; [facility] Plan of Treatment Pending Tests Order Diagnosis Results Due Ordering P rovider Radiology - CT Scan Pelvis 02/27/22 Ben Powell MD Last Documented On 2 8:42AM ; [facility] Instructions to patient Lose weight Last Documented On 2 9:54AM ; [facility] No intervention and counseli ng on cessation of tobacco use Last Documented On 2 8:42AM ; [facility] Lose weight Last Documented On 2 8:42AM ; [facility] Lose weight Last Documented On 2 2:25PM ; [facility] Assessments Includes: Assessments for all patient encounters No Assessments Recorded Instructions Includes: Instructions for all patient encounters Instructions to patient Lose weight Last Documented On 2 9:54AM ; [facility] No intervention and counseli ng on cessation of tobacco use Last Documented On 2 8:42AM ; [facility] Lose weight Last Documented On 2 8:42AM ; [facility] Lose weight Last Documented On 2 2:25PM ; [facility] Medical Equipment - Implanted Devices Includes: Current and historical Devices No Medical Equipment Recorded Medications Includes: Current and historical Medications Current Medications (continue as prescribed) Lidocaine 5% External Patch 10/30/2021 Provider: PERICO AWAN MD Diagnosis: Last Documented On 2 10:32AM By Aleida Haile ; [facility] Atorvastatin Calcium 40 MG Oral Tablet 10/16/2021 Pr ovider: PERICO AWAN MD Diagnosis: Last Documented On 2 10:32AM By Aleida Haile ; [facility] amLODIPine Besylate 5 MG Oral Tablet 09/27/2021 Prov ider: PERICO AWAN MD Diagnosis: Last Documented On 2 10:32AM By Aleida Haile ; [facility] Gabapentin 300 MG Oral Capsule 09/02/2021 Provider: BRUCE QUIJANO MD (N) Diagnosis: Last Documented On 2 2:24PM By Asia Toscano ; [facility] Lisinopril 10 MG Oral Tablet 07/27/2021 Provider: PERICO AWAN MD Diagnosis: Last Documented On 2 2:24PM By Asia Toscano ; [facility] Past Medications on file predniSONE 5 MG Oral Tablet 09/11/2021 - 11/07/2021 Pr ovider: PERICO AWAN MD Diagnosis: Last Documented On 2 10:31AM By Aleida Haile ; [facility] Cefdinir 300 MG Oral Capsule 03/31/2021 - 11/07/2021 P rovider: Diagnosis: Last Documented On 2 10:32AM By Aleida Haile ; [facility] Medications Administered Includes: Administered Medications in patient's chart No Administered Medications Recorded Results Includes: Results from 07/11/2024 through 07/11/2025 No Results Recorded For Specified Dates Social History Description Last Updated Not a smoker 05/01/2022 Last Documented On 2 9:37AM ; [facility] Tobacco non-user 05/01/2022 Last Documented On 2 9:37AM ; [facility] Non-smoker 09/23/2021 Last Documented On 2 3:28PM ; [facility] No caffeine use 09/23/2021 Last Documented On 2 3:28PM ; [facility] No recent change in diet 09/23/2021 Last Documented On 2 3:28PM ; [facility] Not a current smoker. 09/23/2021 Last Documented On 2 3:28PM ; [facility] Not exercising regularly 09/23/2021 Last Documented On 2 3:28PM ; [facility] Not using alcohol 09/23/2021 Last Documented On 2 3:28PM ; [facility] Not using drugs 09/23/2021 Last Documented On 2 3:28PM ; [facility] Sex - Male 05/28/2022 Last Documented On 2 9:12PM ; [facility] Smoking Status Unknown Procedures and Surgical History Surgical History Last Updated History of back surgery 09/23/2021 Last Documented On 2 3:28PM ; [facility] History of heart surgery 09/23/2021 Last Documented On 2 3:28PM ; [facility] Medical History Includes: Medical History in patient's chart Description Last Updated Past Surgical History: feeding tube ~mead d sx 05/26/2022 Last Documented On 2 10:48AM ; [facility] 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 05/01/2022 Last Documented On 2 9:37AM ; [facility] 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 05/01/2022 Last Documented On 2 9:37AM ; [facility] Recent immunization for flu 04/26/2021 0 11/07/2021 Last Documented On 2 12:46PM ; [facility] Recent immunization for pneumococcal pne umonia 2019 11/07/2021 Last Documented On 2 12:46PM ; [facility] Family History Includes: Family History in patient's chart Description Last Updated No significant family history 09/23/2021 Last Documented On 2 3:28PM ; [facility] Mental Status Description No anxiety Last Documented On 2 9:26AM ; [facility] No anxiety Last Documented On 2 9:00AM ; [facility] No anxiety Last Documented On 2 10:25AM ; [facility] No anxiety Last Documented On 2 9:46AM ; [facility] No anxiety Last Documented On 2 10:25AM ; [facility] No anxiety Last Documented On 2 2:25PM ; [facility] Immunizations Includes: Immunizations in patient's chart Vaccine Dose # Date Site Reaction(s) Status Source Influenza 1 04/26/2021 Complete (Reported) Patient Last Documented On 2 10:34AM ; [facility] PCV (Pneumovax 23) 1 07/27/2018 Complete ( Reported) Patient Last Documented On 2 10:35AM ; [facility] PCV (Pneumovax 23) 2 02/13/2022 Complete (Refused - Patient objection) [facility] Last Documented On 2 9:46AM ; [facility] Td 1 02/13/2022 Complete (Refused - Patient objection) [facility] Last Documented On 2 9:46AM ; [facility] Allergies Includes: Active, inactive, and resolved Allergies No Known Allergies Care Inspector Wreath Name (Identifier) Role/Relation Location/Telecom Last Documented By Ben Powell MD ([id number]) Assigned practitioner (occupation) tel:[phone] Last Documented On 05/28/2022 9:12PM ; [facility] PERICO AWAN MD ([id number]) Primary care physician (occupation) [address] [place] [address], [address] tel:[phone] Last Documented On 05/28/2022 9:12PM ; [facility] Payer Includes: Active Insurance Policies Plan Name (Payer ID) Coverage Type Member ID Group # Subscriber (ID) Relationship Effective Dates 1 - Medicare Part B [facility] ([id number]) [id number] Francesco Adorno Self Last Documented On 2 12:25PM ; [facility] 2 - [employer] ([id number]) [id number] Francesco Adorno Self - Unknown Last Documented On 2 2:19PM ; [facility]
--- OUTSIDE RECORDS SUMMARY | 2025-07-11 04:31 | XMS_ITS | Encounter Summary ---
Author Organization [employer] ([place], [place], [place], [place], [place]) Address [address] [place] [address] Care Team Providers Care International Marketing Manager Name Role Phone Robert Batista MD Primary Care Provider [phone] Encounter Details Date Type Department Care Team (Latest Contact Info) Description 07/04/2025 Travel Social History Tobacco Use Types Packs/Day [...] Date Derek rded Speak language other than Citizen [place] at home Not on file 02/17/2024 Want [...] on file documented as of this encounter Plan of Treatment Not on [...] documented as of this encounter Care Teams International Marketing Manager Relationship Specialty Start Date End Date Robert Batista MD [address] [place], [place] [address] PCP - General Family Medicine 07/04/25 documented as of this encounter
--- OUTSIDE RECORDS SUMMARY | 2025-07-11 04:31 | XMS_ITS | Encounter Summary ---
Author Organization Healthcare Address [address] [place] [address] Care Team Providers Care Supervisor Doping Name Role Phone Robert Batista MD Primary Care Provider [phone] Encounter Details Date Type Department Care Team (Late Contact Info) Description 12/15/2022 Orders Only External Location [address] [place] [id number] Christiano Rm MD [address] [place] [address] Social History Tobacco Use Types Packs/Day [...] Department Care Team (Late Contact Info) Description 08/07/2025 9:00 AM EST Appointment [facility] [address] [place] [phone] 08/07/2025 10:45 AM EST Office Visit [facility] [address] [place] [phone] Darell Turcios MD [facility] [address] [facility] [address] [place] [address] documented as of this encounter [...] filedocumented in this encounter Care Teams Supervisor Doping Relationship Specialty Start Date End Date Robert Batista MD [address] [place] [address] [address] [place] [address] PCP - General 12/07/20 documented as of this encounter
--- OUTSIDE RECORDS SUMMARY | 2025-07-11 04:31 | XMS_ITS | Encounter Summary ---
Author Organization [employer] ([place], [place], [place], [place], [place]) Address [address] [place] [address] Care Team Providers Care Call Or Contact Centre Coach Name Role Phone Robert Batista MD Primary Care Provider [phone] Encounter Details Date Type Department Care Team (Late st Contact Info) Description 12/25/2020 Transcribed Document [facility] [place] Family Medicine [address] [place] [address] ProviderMacrina MD [address] [place] [address] Social History Tobacco Use Types [...] Source : Measured Height Entry Format : [place] Height, Feet : 0 ft(Converted to: 0 cm, 0 Inch) Height, Inches : 67.75 Inch(Converted to: 5 ft 8 Inch, 172.08 cm) Clinical Height : 172.09 cm Weight Source : Standing scale Weight Entry Format : [place] Clinical Dosing Weight : 65.14 kg Weight, Pounds : 143 lb Weight, Ounces : 5 oz Body Surface Area (BSA) : 1.77 m2 Body Mass Index : 22 kg/m2 [place] Body Weight : 67 kg TONY BRIDGES [...] 11/15/2019 07:26:36 EDT by ASHLEY STAFFORD, SHYAM) Substance Abuse: Drug Use Hx: No. Use [...] TONY BRIDGES RN - 12/25/2020 10:50 EDT [place] Suicide Severity Rating Scale (C-SSRS) CSSRS Past [...] - Support Person/Pt Rep Contact Information : [phone] Want Family/Rep/Phys Notified of Admit : No Emergency Contact #1 : michaela Adorno Emergency Contact #1 Emergency Contact #1 Relationship : Emergency Contact #2 : n Emergency Contact #2 Phone Number : n Emergency Contact #2 Relationship : n Information Obtained From : Patient Primary Language : Citizen Of [place] Communication Barrier : None Museum Exhibit Designer Needed : No TONY BRIDGES RN - [...] on filedocumented in this encounter Care Teams Call Or Contact Centre Coach Relationship Specialty Start Date End Date Robert Batista MD [address], [place] [address] PCP - General Family Medicine 07/04/25 documented as of this encounter
--- OUTSIDE RECORDS SUMMARY | 2025-07-11 04:31 | XMS_ITS | Encounter Summary ---
Author Organization [employer] ([place], [place], [place], [place], [place]) Address [address] [place] [address] Care Team Providers Care Inspector Machine Cut Glass Name Role Phone Robert Batista MD Primary Care Provider [phone] Encounter Details Date Type Department Care Team (Late st Contact Info) Description 01/18/2021 Transcribed Document [facility] [place] Family Medicine [address] [place] [address] ProviderMacrina MD [address] [place] [address] Social History Tobacco Use Types [...] including vitamins, herbs, eye drops, creams, and [id number] medicines. ??? Any problems you or family [...] filedocumented in this encounter Care Teams Inspector Machine Cut Glass Relationship Specialty Start Date End Date Robert Batista MD [address] [place], [place] [address] PCP - General Family Medicine 07/04/25 documented as of this encounter
--- OUTSIDE RECORDS SUMMARY | 2025-07-11 04:31 | XMS_ITS | Continuity of Care Document ---
Author Organization [facility] Jasmine roberts [facility] Address [address] [place] [address] Care Team Providers Care Tree Killer Name Role Phone PERICO AWAN Referring Provider [...] resection of prostate (SURG) 2024 025 API-830 [facility] (Surgery Scheduling), [address] [place], [address], 06/29/2025 12:44:50 Imaging None recorded. Medication Orders None recorded. Patient TargetsNo targets recorded. Patient InstructionsNo instructions recorded. Reason for Referral None Reported. Results Created Date Observation Date Name Description Value Unit Range Abnormal Flag Note LastModifiedBy Organization Detail LastModifiedTime 06/07/2006/07/2025 urina lysis panel , auto Unknown Analyte Clean Catch Not Available [facility] Surgery Schedule [address] [place], [address], 06/07/2025 13:48:57 06/07/20 25 06/07/2025 urina lysis panel , auto Unknown Analyte Yellow Not Available [facility] Surgery Schedule [address] [place], [address], 06/07/2025 13:48:57 06/07/20 25 06/07/2025 urina lysis panel , auto Unknown Analyte Cloudy Not Available [facility] Surgery Schedule [facility] [place], [address], 06/07/2025 13:48:57 06/07/20 25 06/07/2025 urina lysis panel , auto Unknown Analyte 1.015 Not Available [facility] Surgery Schedule [address] [place] [address], [address], 06/07/2025 13:48:57 06/07/20 25 06/07/2025 urina lysis panel , auto Unknown Analyte 1.003 - 1.030 Not Available [facility] Surgery Schedule [address] [place] [address], [address], 06/07/2025 13:48:57 06/07/20 25 06/07/2025 urina lysis panel , auto Unknown Analyte 5.0 Not Available [facility] Surgery Schedule [address] [place] [place] [address], [address], 06/07/2025 13:48:57 06/07/20 25 06/07/2025 urina lysis panel , auto Unknown Analyte 5.0 - 8.0 Not Available [facility] Surgery Schedule [address] [place] [place] [address], [address], 06/07/2025 13:48:57 06/07/20 25 06/07/2025 urina lysis panel , auto Unknown Analyte 500 Cisco/uL Not Available [facility] Surgery Schedule [address] [place] [address], [address], 06/07/2025 13:48:57 06/07/20 25 06/07/2025 urina lysis panel , auto Unknown Analyte Negati ve Not Available [facility] Surgery Schedule [address] [place] [place] [address], [address], 06/07/2025 13:48:57 06/07/20 25 06/07/2025 urina lysis panel , auto Unknown Analyte Negati ve Not Available [facility] Surgery Schedule [address] [place], [address], 06/07/2025 13:48:57 06/07/20 25 06/07/2025 urina lysis panel , auto Unknown Analyte Negati ve Not Available [facility] Surgery Schedule [address] [place], [address], 06/07/2025 13:48:57 06/07/20 25 06/07/2025 urina lysis panel , auto Unknown Analyte Trace Not Available [facility] Surgery Schedule [address] [place], [address], 06/07/2025 13:48:57 06/07/2006/07/2025 urina lysis panel , auto Unknown Analyte Negati ve Not Available [facility] Surgery Schedule [address] [place], [address], 06/07/2025 13:48:57 06/07/2006/07/2025 urina lysis panel , auto Unknown Analyte Normal Not Available [facility] Surgery Schedule [address] [place], [address], 06/07/2025 13:48:57 06/07/20 25 06/07/2025 urina lysis panel , auto Unknown Analyte Normal Not Available [facility] Surgery Schedule [address] [place], [address], 06/07/2025 13:48:57 06/07/20 25 06/07/2025 urina lysis panel , auto Unknown Analyte Negati ve Not Available [facility] Surgery Schedule [address] [place], [address], 06/07/2025 13:48:57 06/07/20 25 06/07/2025 urina lysis panel , auto Unknown Analyte Negati ve Not Available [facility] Surgery Schedule [address] [place], [address], 06/07/2025 13:48:57 06/07/20 25 06/07/2025 urina lysis panel , auto Unknown Analyte Normal Not Available [facility] Surgery Schedule [address] [place], [address], 06/07/2025 13:48:57 06/07/20 25 06/07/2025 urina lysis panel , auto Unknown Analyte Normal Not Available [facility] Surgery Schedule [address] [place], [address], 06/07/2025 13:48:57 06/07/20 25 06/07/2025 urina lysis panel , auto Unknown Analyte 1 mg/dL Not Available [facility] Surgery Schedule [facility] [place], [address], 06/07/2025 13:48:57 06/07/20 25 06/07/2025 urina lysis panel , auto Unknown Analyte Negati ve Not Available [facility] Surgery Schedule [address] [place] [address], [address], 06/07/2025 13:48:57 06/07/20 25 06/07/2025 urina lysis panel , auto Unknown Analyte 50 Manoj/uL Not Available [facility] Surgery Schedule [address] [place] [address], [address], 06/07/2025 13:48:57 06/07/20 25 06/07/2025 urina lysis panel , auto Unknown Analyte Negati ve Not Available [facility] Surgery Schedule [address] [place] [address], [address], 06/07/2025 13:48:57 Result Notes None recorded. Problems Name Problem SNOMED Code Status Onset Date Resolution Date Notes Provider Name and Address Organization Details Recorded Time Lower urinary tract symptoms due to benign prostatic hypertrophy 3911784981423 1 Active 2024 MARGARET DUNCAN JR, MD [address] [place] [address], [address], [facility] 09:16:06 Retention of urine 408375296 Active 2024 MARGARET DUNCAN JR, MD [address] [place], [address], [facility] 09:16:06 Problem Notes None recorded. Procedures Surgical History Date Name Laterality Status Provider Name and Address Organization Details Recorded Time Transrectal Ultrasound completed MARGARET DUNCAN JR, MD [address] [address], [address], [facility] 06/07/2025 15:44:21 025 Cystoscopy - male completed MARGARET DUNCAN JR, MD [address] [place] [address], [address], [facility] 06/07/2025 15:44:12 Uroflowmetry; Complex completed Vicki Pérez [facility] 06/09/2025 09:42:51 Cholecystectomy completed Murelene Raghu [facility] 05/01/2025 13:41:05 procedure on colon completed Murelene Je tt [facility] 05/01/2025 13:41:17 Heart Surgery completed Murelene Raghu [facility] 05/01/2025 13:41:23 excision of squamous cell carcinoma completed Murelene Raghu [facility] 05/01/2025 13:41:46 Imaging Results None recorded. Procedure [...] History Question Answer Notes LastModified by Organizat ion Details LastModified Time Tobacco Smoking Status Never Smoker Surendra Krishnamurthy [facility], [facility] 05/01/2025 13:40:53 What Was The Date Of [...] 50 mcg/0.25mL dose 1 completed Not Available [facility] 06/07/2025 12:32:48 COVID-19, mRNA, LNP-S, PF, 100 mcg/0.5mL dose or 50 mcg/0.25mL dose 1 completed Not Available [facility] 06/07/2025 12:32:48 COVID-19, mRNA, LNP-S, PF, 100 mcg/0.5mL dose or 50 mcg/0.25mL dose 1 completed Not Available [facility] 06/07/2025 12:32:48 COVID-19, mRNA, LNP-S, PF, 100 mcg/0.5mL dose or 50 mcg/0.25mL dose 1 completed Not Available [facility] 06/07/2025 12:32:48 COVID-19, mRNA, LNP-S, bivalent, PF, 50 mcg/0.5 mL or 25mcg/0.25 mL dose 2 completed Not Available [facility] 06/07/2025 12:32:48 influenza, seasonal, intradermal, preservative free 3 completed Not Available [facility] 06/07/2025 12:32:48 Tdap 4 completed Not Available [facility] 06/07/2025 12:32:48 Influenza, high-dose, trivalent, PF 5 completed Not Available [facility] 06/07/2025 12:32:48 Past Encounters Encounter ID Performer Location Encounter Start Date Encounter Closed Date Diagnosis/Indication Diagnosis SNOMED-CT Code Diagnosis ICD10 Code Diagnosis IMO Codes Diagnosis Note [id number] MARGARET DUNCAN JR, MD [facility] [address] [place] [address] 06/07/2025 12:30:59 06/07/2025 12:57:08 Benign prostatic hyperplasia with outflow obstruction 994510367 N40.1 N13.8 56213904 Lower urin ramses tract symptoms due to benign prostatic hypertrophy 1840784911 9101 N40.1 97857561 [id number] MARGARET DUNCAN JR, MD SURGERY SCHEDULE [address] [place] [address] 06/07/2025 15:42:18 06/07/2025 15:42:52 Lower urinary tract symptoms due to benign prostatic hypertrophy 7011272782 9101 N40.1 [id number] Health Concerns Section Related Observation LastModified by Organization Detai ls LastModified Time None Recorded Concern Status LastModified by Organization Details LastModified Time None Recorded Payers Encounter Date Sequence Insurance Name Policy Number Policy Faith Covered Member ID Faith Member ID Guarantor Name 06/07/2025 2 [facility] (MEDICARE REPLACEMENT/A DVANTAGE - HMO) [id number] Francesco Adorno [id number] Francesco Adorno Notes Date Note Type Note [...] prior to signature. MARGARET DUNCAN JR, MD [address] [place], [address], [facility] 06/07/2025 15:45:20
--- OUTSIDE RECORDS SUMMARY | 2025-07-11 04:31 | XMS_ITS | Encounter Summary ---
Author Organization [employer] ([place], [place], [place], [place], [place]) Address [address] [place] [address] Care Team Providers Care House Builder Name Role Phone Robert Batista MD Primary Care Provider [phone] Encounter Details Date Type Department Care Team (Late st Contact Info) Description 12/03/2020 Transcribed Document [facility] Family Medicine [address] [place] [address] ProviderMacrina MD [address] [place] [address] Social History Tobacco Use Types Packs/Day Years Used Date Smoking Tobacco: Never Assessed Sex and Gender Information Value Date Recorded Sex Assigned at Not on file Legal Sex Male 1:13 PM CDT Gender Identity Not on file Sexual Orientation Not on file documented as of this encounter Miscellaneous Notes * Cerner Conversion Note - Macrina Cordova MD - 12/03/2020 3:03 PM CDT Event Note [...] on filedocumented in this encounter Care Teams House Builder Relationship Specialty Start Date End Date Robert Batista MD [address] [place], [place] [address] PCP - General Family Medicine 07/04/25 documented as of this encounter
--- OUTSIDE RECORDS SUMMARY | 2025-07-11 04:31 | XMS_ITS | Data Portability ---
Author Organization [place] [facility] Address [address] [facility] [place] [address] Care Team Providers Care Night Worker Name Role Phone PERICO AWAN Referring Provider [phone] Assessment Encounter Date Assessment Date Assessment LastModified [...] Modified Time Details Appointments RECHECK 2024 10:45A Edna DUNCAN MD Not available Not available Not available Lab None recorded. Referral None recorded. Procedures None recorded. Surgeries green light laser transuret hral resection of prostate (SURG) 2024 025 API-830 [facility] (Surgery Scheduling), [address], [place], [address], 06/29/2025 12:47:27 green light laser transuret hral resection of prostate (SURG) 2024 025 API-830 [facility] (Surgery Scheduling), [address], [place], [address], 06/29/2025 12:44:50 cystoscop y (SURG) 2024 025 taty d3 [facility]es, [address] [facility], [facility] [address], [place], [address], 07/05/2025 07:49:49 Imaging None recorded. Medication Orders None recorded. Patient TargetsNo targets recorded. Patient Instructions Encounter Date Encounter Id Patient Instructions Last Modified By Organization Details Last Modified Time 05/01/2025 [id number] - Continue self-catheterizat ion twice daily as instructed. - Attend scheduled evaluations for further assessment of bladder stones and urinary retention. - Report any changes in symptoms or difficulties with catheterization. [email or web address] Not available 05/01/2025 13:42:30 06/07/2025 [id number] We have discusse d options of treatment [...] time. He is interested in trying this. [email or web address] Not available 06/07/2025 15:45:07 Reason for Referral None Reported. Results Created Date Observation Date Name Description Value Unit Range Abnormal Flag Note LastModifiedBy Organization Detail LastModifiedTime 06/07/2006/07/2025 urina lysis panel , auto Unknown Analyte Clean Catch Not Available [facility] Surgery Schedule [address] [place], [address], 06/07/2025 13:48:57 06/07/20 25 06/07/2025 urina lysis panel , auto Unknown Analyte Yellow Not Available [facility] Surgery Schedule [address] [place], [address], 06/07/2025 13:48:57 06/07/20 25 06/07/2025 urina lysis panel , auto Unknown Analyte Cloudy Not Available [facility] Surgery Schedule [address] [place], [address], 06/07/2025 13:48:57 06/07/20 25 06/07/2025 urina lysis panel , auto Unknown Analyte 1.015 Not Available [facility] Surgery Schedule [address] [place], [address], 06/07/2025 13:48:57 06/07/20 25 06/07/2025 urina lysis panel , auto Unknown Analyte 1.003 - 1.030 Not Available [facility] Surgery Schedule [address] [place] [address], [address], 06/07/2025 13:48:57 06/07/20 25 06/07/2025 urina lysis panel , auto Unknown Analyte 5.0 Not Available [facility] Surgery Schedule [address] [place] [address], [address], 06/07/2025 13:48:57 06/07/20 25 06/07/2025 urina lysis panel , auto Unknown Analyte 5.0 - 8.0 Not Available [facility] Surgery Schedule [address] [place] [address], [address], 06/07/2025 13:48:57 06/07/20 25 06/07/2025 urina lysis panel , auto Unknown Analyte 500 Cisco/uL Not Available [facility] Surgery Schedule [address] [place] [address], [address], 06/07/2025 13:48:57 06/07/20 25 06/07/2025 urina lysis panel , auto Unknown Analyte Negati ve Not Available [facility] Surgery Schedule [address] [place] [address], [address], 06/07/2025 13:48:57 11/12/06/07/2025 urina lysis panel , auto Unknown Analyte Negati ve Not Available [facility] Surgery Schedule [address] [place], [address], 06/07/2025 13:48:57 06/07/20 25 06/07/2025 urina lysis panel , auto Unknown Analyte Negati ve Not Available [facility] Surgery Schedule [address] [place], [address], 06/07/2025 13:48:57 06/07/2006/07/2025 urina lysis panel , auto Unknown Analyte Trace Not Available [facility] Surgery Schedule [address] [place], [address], 06/07/2025 13:48:57 06/07/20 25 06/07/2025 urina lysis panel , auto Unknown Analyte Negati ve Not Available [facility] Surgery Schedule [facility] [place], [address], 06/07/2025 13:48:57 06/07/20 25 06/07/2025 urina lysis panel , auto Unknown Analyte Normal Not Available [facility] Surgery Schedule [address] [place] [address], [address], 06/07/2025 13:48:57 06/07/20 25 06/07/2025 urina lysis panel , auto Unknown Analyte Normal Not Available [facility] Surgery Schedule [facility] [place], [address], 06/07/2025 13:48:57 06/07/20 25 06/07/2025 urina lysis panel , auto Unknown Analyte Negati ve Not Available [facility] Surgery Schedule [facility] [place], [address], 06/07/2025 13:48:57 06/07/20 25 06/07/2025 urina lysis panel , auto Unknown Analyte Negati ve Not Available [facility] Surgery Schedule [address] [place], [address], 06/07/2025 13:48:57 06/07/20 25 06/07/2025 urina lysis panel , auto Unknown Analyte Normal Not Available [facility] Surgery Schedule [address] [place] [address], [address], 06/07/2025 13:48:57 06/07/20 25 06/07/2025 urina lysis panel , auto Unknown Analyte Normal Not Available [facility] Surgery Schedule [address] [place], [address], 06/07/2025 13:48:57 06/07/2006/07/2025 urina lysis panel , auto Unknown Analyte 1 mg/dL Not Available [facility] Surgery Schedule [address] [place] [address], [address], 06/07/2025 13:48:57 06/07/20 25 06/07/2025 urina lysis panel , auto Unknown Analyte Negati ve Not Available [facility] Surgery Schedule [address] [place] [address], [address], 06/07/2025 13:48:57 06/07/20 25 06/07/2025 urina lysis panel , auto Unknown Analyte 50 Manoj/uL Not Available [facility] Surgery Schedule [address] [place] [address], [address], 06/07/2025 13:48:57 06/07/20 25 06/07/2025 urina lysis panel , auto Unknown Analyte Negati ve Not Available [facility] Surgery Schedule [address] [place] [address], [address], 06/07/2025 13:48:57 Result Notes None recorded. Problems Name Problem SNOMED Code Status Onset Date Resolution Date Notes Provider Name and Address Organization Details Recorded Time Lower urinary tract symptoms due to benign prostatic hypertrophy 9441578285914 1 Active 2024 MARGARET DUNCAN JR, MD [address] [place] [address], [address] , [facility] 09:16:06 Retention of urine 808523700 Active 2024 MARGARET DUNCAN JR, MD [address] [place] [address], [address], [facility] 09:16:06 Problem Notes None recorded. Procedures Surgical History Date Name Laterality Status Provider Name and Address Organization Details Recorded Time Transrectal Ultrasound completed MARGARET DUNCAN JR, MD [address] [place] [address], [address], [facility] 06/07/2025 15:44:21 Cystoscopy - male completed MARGARET DUNCAN JR, MD [address] [place] [address], [address], [facility] 06/07/2025 15:44:12 Uroflowmetry; Complex completed Vicki Pérez [facility] 06/09/2025 09:42:51 Cholecystectomy completed Murelene Raghu [facility] 05/01/2025 13:41:05 procedure on colon completed Murelene Je tt [facility] 05/01/2025 13:41:17 Heart Surgery completed Murelene Raghu [facility] 05/01/2025 13:41:23 excision of squamous cell carcinoma completed Murelene Raghu [facility] 05/01/2025 13:41:46 Imaging Results None recorded. [...] Updated DateTime 05/01/2025 170.18 cm 20.4 kg/m2 72635.01 mike Krishnamurthy [facility] 05/01/2025 13:40:01 Social History Question Answer Notes LastModified by Organizat ion Details LastModified Time Tobacco Smoking Status Never Smoker Surendra Krishnamurthy null, [facility] 05/01/2025 13:40:53 What Was The Date [...] 50 mcg/0.25mL dose 1 completed Not Available [facility] 06/07/2025 12:32:48 COVID-19, mRNA, LNP-S, PF, 100 mcg/0.5mL dose or 50 mcg/0.25mL dose 1 completed Not Available [facility] 06/07/2025 12:32:48 COVID-19, mRNA, LNP-S, PF, 100 mcg/0.5mL dose or 50 mcg/0.25mL dose 1 completed Not Available [facility] 06/07/2025 12:32:48 COVID-19, mRNA, LNP-S, PF, 100 mcg/0.5mL dose or 50 mcg/0.25mL dose 1 completed Not Available [facility] 06/07/2025 12:32:48 COVID-19, mRNA, LNP-S, bivalent, PF, 50 mcg/0.5 mL or 25mcg/0.25 mL dose 2 completed Not Available [facility] 06/07/2025 12:32:48 influenza, seasonal, intradermal, preservative free 3 completed Not Available [facility] 06/07/2025 12:32:48 Tdap 4 completed Not Available [facility] 06/07/2025 12:32:48 Influenza, high-dose, trivalent, PF 5 completed Not Available [facility] 06/07/2025 12:32:48 Past Encounters Encounter ID Performer Location Encounter Start Date Encounter Closed Date Diagnosis/Indication Diagnosis SNOMED-CT Code Diagnosis ICD10 Code Diagnosis IMO Codes Diagnosis Note [id number] MARGARET DUNCAN JR, MD [facility] [address] [facility] [place] [address] 05/01/2025 12:54:38 05/02/2025 09:41:09 Lower urinary tract symptoms due to benign prostatic hypertrophy 5009572728 9101 N40.1 19230839 Retention of urine 11285 4002 R33.9 98019 [id number] MARGARET DUNCAN JR, MD [facility] [address] [facility] [place] [address] 06/07/2025 12:30:59 06/07/2025 12:57:08 Benign prostatic hyperplasia with outflow obstruction 829782771 N40.1 N13.8 40730103 Lower urin ramses tract symptoms due to benign prostatic hypertrophy 6231586620 9101 N40.1 26528070 [id number] MARGARET DUNCAN JR, MD SURGERY SCHEDULE [address] [place] [address] 06/07/2025 15:42:18 06/07/2025 15:42:52 Lower urinary tract symptoms due to benign prostatic hypertrophy 2662962771 9101 N40.1 [id number] Health Concerns Section Related Observation LastModified by Organization Detai ls LastModified Time None Recorded Concern Status LastModified by Organization Details LastModified Time None Recorded Advance Directives Directive None Recorded Payers Insurance Date Sequence Insurance Name Policy Number Policy Faith Covered Member ID Faith Member ID Guarantor Name 06/12/2025 GENERIC INSURANCE - MOVED-HOLD Francesco Adorno 07/07/2025 2 [facility] (MEDICARE REPLACEMENT/ADV ANTAGE - HMO) [id number] Francesco Adorno [id number] Francesco Adorno 07/10/2025 1 [facility] [facility] (MEDICARE REPLACEMENT/ADV ANTAGE - PPO) [id number] Francesco Adorno [id number] Francesco Adorno 05/02/2025 1 [place] [employer] Francesco Adorno [id number] Francesco Adorno 05/02/2025 1 [place] Francesco Adorno [id number] Francesco Adorno 05/02/2025 2 [employer] SUPPLEMENTAL - [employer] (MEDICARE SUPPLEMENT) Francesco Adorno [id number] Francesco Adorno Notes Date Note Type Note [...] prior to signature. MARGARET DUNCAN JR, MD [address] [place] [address], [address], [facility] 05/03/2025 09:16:32 06/07/2025 text/html The patient is an 84-year-old [...] prior to signature. MARGARET DUNCAN JR, MD [address] [place] [address], [address], [facility] 06/07/2025 15:45:20
--- OUTSIDE RECORDS SUMMARY | 2025-07-11 04:31 | XMS_ITS | Encounter Summary ---
Author Organization [employer] ([place], [place], [place], [place], [place]) Address [address] [place] [address] Care Team Providers Care Powerplant Operator Name Role Phone Robert Batista MD Primary Care Provider [phone] Encounter Details Date Type Department Care Team (Late st Contact Info) Description 01/18/2021 Transcribed Document [facility] [place] Family Medicine [facility] [address] ProviderMacrina MD [address] [place], [place] [id number] Social History Tobacco Use Types Packs/Day Years Used Date Smoking Tobacco: Never Assessed Sex and Gender Information Value Date Recorded Sex Assigned at Not on file Legal Sex Male 1:13 PM CDT Gender Identity Not on file Sexual Orientation Not on file documented as of this encounter Miscellaneous Notes * Cerner Conversion Note - Macrina Cordova MD - 01/18/2021 12:15 PM CDT Discharge Summary, PHP WEB DEVELOPER Entered On: 01/18/2021 10:17 EDT Performed On: 01/18/2021 12:15 EDT by JUAN MANUEL BRUMFIELD, PHP WEB DEVELOPER Discharge Notation. PHP WEB DEVELOPER Dysphagia Treatment After Discharge : Yes Discharge [...] Treatment Indicated : Yes Discharge Summary Comment, PHP WEB DEVELOPER : PEG successfully placed yesterday. Pt is being d/c to [facility] today. He will need continued ST services to target dysphagia, dysarthria, and cognitive-linguistic deficits. He will need repeat instrumental prior to initiating PO diet. JUAN MANUEL BRUMFIELD SLP - 01/18/2021 10:15 EDT LTG Lang/Comm/Cog LTG PHP WEB DEVELOPER Detention Goal 1 Detention Goal 2 Goals : Improved memory in order to complete functional task(s) upon discharge Improved problem solving in order to complete functional task(s) upon discharge Status : Not met Not met JUAN MANUEL BRUMFIELD SLP - 01/18/2021 10:15 EDT JUAN MANUEL BRUMFIELD SLP - 01/18/2021 10:15 EDT STG Lang_Comm_Cog PHP WEB DEVELOPER Education STG Grid Goal #1 Activity : [...] Date Met : 01/17/2021 EDT JUAN MANUEL BRUMFIELD SLP - 01/18/2021 10:15 EDT JUAN MANUEL BRUMFIELD, PHP WEB DEVELOPER - 01/18/2021 10:15 EDT JUAN MANUEL BRUMFIELD, BENJY - 01/18/2021 10:15 EDT Swallow Plan/Goals Swallow LTG Grid PHP WEB DEVELOPER Yacht Builder Goal #1 PHP WEB DEVELOPER Yacht Builder Goal #2 Swallow LTG : Establish safe oral diet without aspiration Improve swallowing function for oral intake Status : Not met Not met JUAN MANUEL BRUMFIELD SLP - 01/18/2021 10:15 EDT JUAN MANUEL BRUMFIELD, PHP WEB DEVELOPER - 01/18/2021 10:15 EDT Swallow Goals Grid [...] 01/10/2021 EDT 01/10/2021 EDT JUAN MANUEL BRUMFIELD, PHP WEB DEVELOPER - 01/18/2021 10:15 EDT JUAN MANUEL BRUMFIELD, PHP WEB DEVELOPER - 01/18/2021 10:15 EDT JUAN MANUEL BRUMFIELD, PHP WEB DEVELOPER - 01/18/2021 10:15 EDT JUAN MANUEL BRUMFIELD, PHP WEB DEVELOPER - 01/18/2021 10:15 EDT Goal #5 Goal [...] - 01/18/2021 10:15 EDT JUAN MANUEL BRUMFIELD, PHP WEB DEVELOPER - 01/18/2021 10:15 EDT JUAN MANUEL BRUMFIELD, PHP WEB DEVELOPER - 01/18/2021 10:15 EDT JUAN MANUEL BRUMFIELD, PHP WEB DEVELOPER - 01/18/2021 10:15 EDT Goal #9 Swallow STG : Other: Pt goal: I want to go home Related To : Date to Meet : Status : Date Met : JUAN MANUEL BRUMFIELD SLP - 01/18/2021 10:15 EDT documented in this encounter Plan of Treatment Not on file documented as of this encounter Visit Diagnoses Not on filedocumented in this encounter Care Teams Powerplant Operator Relationship Specialty Start Date End Date Robert Batista MD [address] [place] [address] PCP - General Family Medicine 07/04/25 documented as of this encounter
--- OUTSIDE RECORDS SUMMARY | 2025-07-11 04:31 | XMS_ITS | Encounter Summary ---
Author Organization [employer] ([place], [place], [place], [place], [place]) Address [address] [place] [address] Care Team Providers Care Change Lead Name Role Phone Robert Batista MD Primary Care Provider [phone] Encounter Details Date Type Department Care Team (Late st Contact Info) Description 12/03/2020 Transcribed Document [facility] Family Medicine [address] [place] [address] ProviderMacrina MD [address] [place] [address] Social History Tobacco Use Types Packs/Day Years Used Date Smoking Tobacco: Never Assessed Sex and Gender Information Value Date Recorded Sex Assigned at Not on file Legal Sex Male 1:13 PM CDT Gender Identity Not on file Sexual Orientation Not on file documented as of this encounter Miscellaneous Notes * Cerner Conversion Note - Macrina Cordova MD - 12/03/2020 2:38 PM CDT Event Note [...] on filedocumented in this encounter Care Teams Change Lead Relationship Specialty Start Date End Date Robert Batista MD [address] [place] [address] PCP - General Family Medicine 07/04/25 documented as of this encounter
--- OUTSIDE RECORDS SUMMARY | 2025-07-11 04:31 | XMS_ITS | Encounter Summary ---
Author Organization [employer] ([place], [place], [place], [place], [place]) Address [address] [place] [address] Care Team Providers Care Plastics Design Engineer Name Role Phone Robert Batista MD Primary Care Provider [phone] Encounter Details Date Type Department Care Team (Late st Contact Info) Description 01/18/2021 Transcribed Document [facility] [place] Family Medicine [facility] [place] [address] ProviderMacrina MD [address] [place] [address] Social History Tobacco Use Types Packs/Day Years Used Date Smoking Tobacco: Never Assessed Sex and Gender Information Value Date Recorded Sex Assigned at Not on file Legal Sex Male 1:13 PM CDT Gender Identity Not on file Sexual Orientation Not on file documented as of this encounter Miscellaneous Notes * Cerner Conversion Note - Macrina Cordova MD - 01/18/2021 4:07 PM CDT Nursing Discharge Summary Entered On: 01/18/2021 16:08 EDT Performed On: 01/18/2021 16:07 EDT by Misty Schmitt Lpn Discharge Documentation Discharge Date/Time : 01/18/2021 16:15 EDT Patient Disposition, General : Discharge Discharge To : Rehabilitation unit/facility Name of Receiving Facility/Provider : [facility] Mode Of Departure, General Discharge : Other: [...] Misty Schmitt Lpn - 01/18/2021 16:07 EDT Electronically signed by [facility], [facility] Conversion Electronics Manufacturer Cerner at 11/10/2022 9:18 AM CDT documented in this encounter Plan of Treatment Not on file documented as of this encounter Visit Diagnoses Not on filedocumented in this encounter Care Teams Plastics Design Engineer Relationship Specialty Start Date End Date Robert Batista MD [address] [place] [address] PCP - General Family Medicine 07/04/25 documented as of this encounter
--- OUTSIDE RECORDS SUMMARY | 2025-07-11 04:31 | XMS_ITS | Encounter Summary ---
Author Organization [employer] ([place], [place], [place], [place], [place]) Address [address] [place] [address] Care Team Providers Care Systems Administrator Name Role Phone Robert Batista MD Primary Care Provider [phone] Encounter Details Date Type Department Care Team (Late st Contact Info) Description 12/03/2020 Transcribed Document [facility] [place] Family Medicine [facility] [place] [address] ProviderMacrina MD [address] [place], [place] [address] Social History Tobacco Use Types Packs/Day Years Used Date Smoking Tobacco: Never Assessed Sex and Gender Information Value Date Recorded Sex Assigned at Not on file Legal Sex Male 1:13 PM CDT Gender Identity Not on file Sexual Orientation Not on file documented as of this encounter Miscellaneous Notes * Cerner Conversion Note - Macrina Cordova MD - 12/03/2020 2:38 PM CDT DATE OF [...] None. SOCIAL HISTORY: The patient lives in [place]. 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 He [...] review Mr. Adorno and determine further recommendation. /[id number] DICTATED BY: LUCÍA Phelps for Cuauhtemoc Gresham MD Cuauhtemoc Gresham MD LKR/STACIE / SOHAM / SOHAIL /[id number] Patient was seen and examined by me [...] and evaluation for transcatheter aortic valve replacement. Electronically signed by [place], [facility] Conversion Drop Wire Aliner Cerner at 11/10/2022 9:09 AM CDT documented in this encounter Plan of Treatment Not on file documented as of this encounter Visit Diagnoses Not on filedocumented in this encounter Care Teams Systems Administrator Relationship Specialty Start Date End Date Robert Batista MD [address] [place], [place] [address] PCP - General Family Medicine 07/04/25 documented as of this encounter
--- OUTSIDE RECORDS SUMMARY | 2025-07-11 04:31 | XMS_ITS | Encounter Summary ---
Author Organization [employer] ([place], [place], [place], [place], [place]) Address [address] [place] [address] Care Team Providers Care Community Integration Specialist Name Role Phone Robert Batista MD Primary Care Provider [phone] Encounter Details Date Type Department Care Team (Late st Contact Info) Description 01/18/2021 Transcribed Document [facility] Family [place] [address] ProviderMacirna MD [address] [place], [place] [address] Social History Tobacco Use Types Packs/Day Years [...] 1012. 01/02/21: POD#6 Intubated and sedated on [id number]/hr and Precedex .6mcg/kg/min. He is also on [...] POD #21 going down for PEG today : POD #22, PEG yesterday, [facility] today Review of Systems Constitutional: Weakness. Health [...] 2L/NC TF 50ml/hr Continue P.T. Transfer to [facility] Pt will need rehab when clinically ready 01/11/21 POD#15 O2 91% 2L/NC TF 50ml/hr Continue P.T. Awaiting transfer to [facility] 01/12/2021 POD #16 Continues tube feedings, tolerating Steady progress 01/13/2021 POD #17 ALINA Spence Will need rehab placement 01/14/2021 POD #18 Patient still not cleared for PO [facility] has accepted the patient, but he needs a PEG. Will consult general surgery for PEG placement prior to transfer to [facility] 01/15/2021 POD #19 Planning to repeat swallow evaluation. Depending on results, may require PEG prior to transfer to [facility]. 01/16/2021: POD #20 Continue tube feedings PEG tomorrow per Dr. Rodriguez Spoke with , will contact [facility] tomorrow for bed availability once PEG is placed. 01/17/2021: POD #21 Failed swallow evaluation yesterday For PEG placement today. [facility] after PEG placement today if bed available. 01/18/21: POD #22 PEG yesterday [facility] today Follow up with Dr. Solorzano two [...] - Pre-Op Diagnosis, Medical. Electronically signed by [facility], [facility] Conversion Alliance Manager Cerner at 11/10/2022 9:21 AM CDT documented in this encounter Plan of Treatment Not on file documented as of this encounter Visit Diagnoses Not on filedocumented in this encounter Care Teams Community Integration Specialist Relationship Specialty Start Date End Date Robert Batista MD [address] [place], [place] [address] PCP - General Family Medicine 07/04/25 documented as of this encounter
--- OUTSIDE RECORDS SUMMARY | 2025-07-11 04:31 | XMS_ITS | Encounter Summary ---
Author Organization [employer] ([place], [place], [place], [place], [place]) Address [address] [place] [address] Care Team Providers Care Line Production Cook Name Role Phone Perico Awan MD Primary Care Provider [phone] Encounter Details Date Type Department Care Team (Late st Contact Info) Description 02/05/2021 Transcribed Document [facility] [place] Family Medicine [address] [place] [address] ProviderMacrina MD [address] [place], [place] [id number] Social History Tobacco Use Types Packs/Day Years [...] On: 02/05/2021 16:02 EDT by Kathy Medrano tobacco grader Follow Up Phone Call Third Call Date/Time [...] First Call Date/Time : 02/05/2021 16:02 EDT Kahty Medrano RN - 02/05/2021 16:02 EDT Kathy Medrano RN - 02/19/2021 15:15 EDT Provider Follow-Up Post Discharge : Discharge Follow Up FITO MEDRANO - Within 6 weeks EMEKA MADERA - 10:15 AM [facility] - Within 6 weeks DANYELLE WALTERS - 11:00 AM PERICO AWAN MD - Within 5 to 7 days Follow Up Scheduled With PCP? : Yes Patient Has PCP Contact Info? : Yes Follow Up Scheduled with Specialist? : Yes Patient Has Specialist Contact Info? : Yes Patient Experienced Pain During Visit : No Previously Documented [facility] Patient Stated Goal : No Patient Stated Goal Kathy Medrano RN - 02/05/2021 16:02 EDT Post Visit Comments : 14 day stroke follow up: 02/05 @ 1603: spoke to patients , states the patient is still at [facility]. Pt is doing well and is improving every day. He is going to be discharged from [facility] on thursday. He has follow ups [...] on filedocumented in this encounter Care Teams Line Production Cook Relationship Specialty Start Date End Date Perico Awan MD [address] [place], [place] [address] PCP - General Family Medicine 07/04/25 documented as of this encounter
--- OUTSIDE RECORDS SUMMARY | 2025-07-11 04:31 | XMS_ITS | Clinical Summary ---
Author Organization [email or web address] ([place], [place], [place], [place], [place]) Address [address] [place] [address] Care Team Providers Care Location Man Name Role Phone Robert Batista MD Primary Care Provider [phone] Allergies No known active allergies Medications gabapentin [...] mouth 2 (two) times daily. 6 tablet 5 Active docusate sodium (COLACE) 100 MG capsule Take 1 capsule (100 mg total) by mouth 2 (two) times daily for 10 days. 20 capsule 5 07/20/20 25 Active oxyCODONE-aceta minophen (PERCOCET) 7.5-325 mg per tablet Take 1 tablet by mouth every 6 (six) hours as needed for pain for up to 10 days. Max Daily Amount: 4 tablets 30 tablet 5 07/20/20 25 Active DULoxetine (CYMBALTA) 60 MG capsule Take 1 capsule (60 mg total) by mouth 2 (two) times daily. 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 Encounters Date Type Department Care Team Description 07/10/2025 8:52 AM EST - 07/10/2025 10:14 AM EST Surgery [facility] Surgery Department [address] [place] [phone] Ayden Doll Jr., MD GREENLIGHT LASER VAPORIZATION OF PROSTATE 07/10/2025 8:48 AM EST Anesthesia Event [facility] Surgery Department [address] [place] [phone] Catalina Gilmore CRNA Qureshi, Muhammad, MD 07/10/2025 6:25 AM EST - 07/10/2025 10:50 AM EST Hospital Encounter [facility] Surgery Department [address] [place] [address] Ayden Doll Jr., MD BPH with obstruction/lower urinary tract symptoms (Primary Dx) Discharge Disposition: Home or Self Care 07/04/2025 1:30 PM EST Office Visit [facility] [address] [place] [phone] Carlitos Merrill MD Aortic valve stenosis, etiology of cardiac valve disease unspecified (Primary Dx); Chest pain 07/04/2025 Travel 06/29/2025 Telephone [facility] [address] [place] [address] Arthur Gomez MD clearance from Last 3 Months Family History Medical History Relation Name Comments [...] Date Derek rded Speak language other than Kyrgyz at home Not on file 02/17/2024 Want [...] 07/10/2025 7:14 AM EST Plan of Treatment Health Maintenance Due Date Last Done Comments Depression Screening (12+) 1952 Shingles Vaccine (Zoster) (1 of 2) 1989 Respiratory Syncytial Virus (RSV) Adult or (1 - 1-dose 75+ series) 2014 Pneumococcal 50+ years (2 of 2 - PCV) 07/27/2019 07/27/2018 Falls Risk Screening 07/27/2024 Medicare Initial AWV G0438 09/25/2024 COVID-19 VACCINE (6 - 2024-2 6 season) 2025 05/14/2022, 04/17/2021, 09/22/2020, Additional history exists Tobacco Cessation Counseling and Screening (12+) 07/10/2026 07/10/2025 DTAP/TDAP/TD VACCINES (3 - T d or Tdap) 08/13/2033 08/13/2023, 07/27/2013 Influenza Vaccine Completed 04/04/2025 Goals Goal Patient Goal Type Associated Problems Recent Progress Patient-Stated? Author Autogenerat ed Goal Care Plan Autogenerated Problem No Nimisha Haile Procedures Procedure Name Priority Date/Time Associated Diagnosis Comments OTTONIEL AN LMA LDA Routine 07/10/2025 8:53 AM EST ANESTHESIA INTUBATION Routine 07/10/2025 8:53 AM EST LA LASER VAPORIZATION OF PROSTATE FOR URINE FLOW 07/10/2025 8:46 AM EST Enlarged prostate with urinary obstruction Case Notes AGILMARGARITA CONF [id number] SPOKE TO FRANNY RICE POC Routine 07/10/2025 6:43 AM EST from [...] of attempts at approach: 1 us Catalina L Mando CUSTOMER CONTACT SPECIALIST ANESTHESIA ORDERABLES Final Result * Glucose, Nova Meter (07/10/2025 6:43 AM EST) POC-GLUCOSE 103 70 - 110 mg/dL 07/10/2025 6:45 AM EST [facility] Comment:In the event of poor peripheral blood flow, venous or arterial blood should be used due to the potential of erroneous results. [place] [id number] 07/10/2025 6:45 AM EST [facility] Blood WHOLE BLOOD / Unknown 07/10/2025 6:43 AM EST 07/10/2025 6:45 AM EST us Ayden Doll Jr., MD POINT OF CARE TEST ORD ERABLES Final Result [facility] [address] [place] [address], [facility] [phone] from Last 3 Months Additional Health Concerns Active Problems Noted Date Diagnosed Date Autogenerated Problem 06/29/[address] [place] [address] [facility] MEDICARE ADVANTAGE Care Teams Location Man Relationship Specialty Start Date End Date Robert Batista MD [address] [place] [address] PCP - General Family Medicine 07/04/25
--- OUTSIDE RECORDS SUMMARY | 2025-07-11 04:31 | XMS_ITS | Encounter Summary ---
Author Organization [employer] ([place], [place], [place], [place], [place]) Address [address] [place] [address] Care Team Providers Care Activities Aide Name Role Phone Robert Batista MD Primary Care Provider [phone] Encounter Details Date Type Department Care Team (Late st Contact Info) Description 12/05/2020 Transcribed Document [facility] Pulm & Critical Care Medicine [address] [place] [address] [phone] [place] [address] [place] [address] [address] [place] [address] Social History Tobacco Use Types Packs/Day Years [...] obesity, but the patient's BMI is 22.79. /[id number] Erick Navarro MD SAK/AQ / SAK / MODL /[id number] documented in this encounter Plan of Treatment Not on file documented as of this encounter Visit Diagnoses Not on filedocumented in this encounter Care Teams Activities Aide Relationship Specialty Start Date End Date Robert Batista MD [address] [place] [address] PCP - General Family Medicine 07/04/25 documented as of this encounter
--- OUTSIDE RECORDS SUMMARY | 2025-07-11 04:31 | XMS_ITS | Encounter Summary ---
Author Organization [employer] ([place], [place], [place], [place], [place]) Address [address] [place] [address] Care Team Providers Care Plating Inspector Name Role Phone Robert Batista MD Primary Care Provider Encounter Details Date Type Department Care Team (Late st Contact Info) Description 12/25/2020 Transcribed Document [facility] Family Medicine [facility] [place] [address] ProviderMacrina MD [address] [place] [address] Social History Tobacco Use Types Packs/Day Years Used Date Smoking Tobacco: Never Assessed Sex and Gender Information Value Date Recorded Sex Assigned at Not on file Legal Sex Male 1:13 PM CDT Gender Identity Not on file Sexual Orientation Not on file documented as of this encounter Miscellaneous Notes * Cerner Conversion Note - Macrina ProviderMD - 12/25/2020 10:58 AM CDT Spiritual [...] Empathic/Engaged listening, Family/Significant other supported Spiritual and Sikh : Prayer shared, Spiritual/Sikh support provided BRISSA SULLIVAN 12/27/2020 7:08 EDT documented in this encounter Plan of Treatment Not on file documented as of this encounter Visit Diagnoses Not on filedocumented in this encounter Care Teams Plating Inspector Relationship Specialty Start Date End Date Robert Batista MD [address] [place], [place] [phone] PCP - General Family Medicine 07/04/25 documented as of this encounter
--- OUTSIDE RECORDS SUMMARY | 2025-07-11 04:31 | XMS_ITS | Clinical Summary ---
Author Organization [facility] , [facility] Address [address] [place] [address] Phone Care Team Providers Care Sweetbread Trimmer Name Role Phone Andre DAILY, Ben [facility] [phone] PERICO AWAN MD Primary Care Provider [phone] Reason for Visit and Chief Complaint The Chief Complaint is: lower back pain Problems Includes: Problems addressed during this encounter and other active Problems Current Visit Onset Date Date of Diagnosis Resolved Date Provider Condition Status Lower Back Pain 09/23/2021 09/23/2021 DOMINIQUE CADET PA-C Active Last Documented On 5 1:41AM ; [facility] Plan of Treatment I informed [...] - Last Documented On 05/26/2022 10:48AM ; [facility] Fall Risk Assessment: This patient [...] Documented On 05/26/2022 10:48AM ; [facility] Assessments Includes: Assessments from this encounter Findings This is a 82 year old male with status post left si joint pseudoarthrosis and chronic low back pain. - Last Documented On 05/26/2022 10:48AM ; [facility] Medical Equipment - Implanted Devices Includes: Current Devices No Medical Equipment Recorded Medications Includes: Medications discussed during this encounter and other current Medications Current Medications (continue as prescribed) Lidocaine 5% External Patch 10/30/2021 Provider: PERICO AWAN MD Diagnosis: Last Documented On 2 10:32AM By Aleida Haile ; [facility], [facility] Atorvastatin Calcium 40 MG Oral Tablet 10/16/2021 Pr ovider: PERICO AWAN MD Diagnosis: Last Documented On 2 10:32AM By Aleida Haile ; [facility], [facility] amLODIPine Besylate 5 MG Oral Tablet 09/27/2021 Prov ider: PERICO AWAN MD Diagnosis: Last Documented On 2 10:32AM By Aleida Haile ; [facility] Gabapentin 300 MG Oral Capsule 09/02/2021 Provider: BRUCE QUIJANO MD (N) Diagnosis: Last Documented On 2 2:24PM By Asia Toscano ; [facility], [facility] Lisinopril 10 MG Oral Tablet 07/27/2021 Provider: PERICO AWAN MD Diagnosis: Last Documented On 2 2:24PM By Asia Toscnao ; [facility] Medications Administered Includes: Administered Medications from this encounter No Administered Medications Recorded Vital Signs Includes: Vital Signs from this encounter Vital Name 05/26/2022 09:33A Blood Pressure Sitting R 132/69 Pulse Rate-Sitting (bpm) 82 Height (in) 68 Weight (lb) 133 Body Mass Index (kg/m2) 20.2 Body Surface Area (m2) 1.7 Note: bb Last Documented: On 05/26/2022 9:33AM ; [facility] Results Includes: Results discussed during [...] 05/01/2022 Last Documented On 2 9:26AM ; [facility], [facility] No caffeine use 09/23/2021 Last Documented On 2 9:26AM ; [facility], [facility] No recent change in diet 09/23/2021 Last Documented On 2 9:26AM ; [facility], [facility] Not a current smoker. 09/23/2021 Last Documented On 2 9:26AM ; [facility], [facility] Not exercising regularly 09/23/2021 Last Documented On 2 9:26AM ; [facility] Not using alcohol 09/23/2021 Last Documented On 2 9:26AM ; [facility] Not using drugs 09/23/2021 Last Documented On 2 9:26AM ; [facility] Sex - Male 05/28/2022 Last Documented On 2 9:12PM ; [facility] Smoking Status Unknown Procedures and Surgical History Includes: Procedures from this encounter Procedures Code Diagnosis Performing Provider Service L ocation Service Date use of tobacco assessment performed 1000F Last Documented On 2 9:26AM ; [facility] patient screened for future fall risk 3288F Last Documented On 2 9:26AM ; [facility] patient screened for future fall risk: documentation of any fall with injury in past year 1100F Last Documented On 2 9:26AM ; [facility] an X-ray was performed 06/06 Humza SI Joint @ [facility] ~06/06/2021 Pelvis @ [facility] ~05/26/2022 [place] [id number] Last Documented On 2 10:47AM ; [facility] a CT scan was performed 07/27 LT Hip WO @ [facility] ~03/04/2022 Pelvis/L SI Block @ [id number] [id number] Last Documented On 2 9:26AM ; [facility] Surgical History Last Updated History of back surgery 09/23/2021 Last Documented On 2 9:26AM ; [facility] History of heart surgery 09/23/2021 Last Documented On 2 9:26AM ; [facility] Medical History Includes: Medical History addressed during this encounter Description Last Updated Past Surgical History: feeding tube ~mead d sx 05/26/2022 Last Documented On 2 10:48AM ; [facility] 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 05/01/2022 Last Documented On 2 9:26AM ; [facility] 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 05/01/2022 Last Documented On 2 9:26AM ; [facility], [facility] Recent immunization for flu 04/26/2021 0 11/07/2021 Last Documented On 2 9:26AM ; [facility], [facility] Recent immunization for pneumococcal pne umonia 2019 11/07/2021 Last Documented On 2 9:26AM ; [facility], [facility] Family History Includes: Family History addressed during this encounter Description Last Updated No significant family history 09/23/2021 Last Documented On 2 9:26AM ; [facility], [facility] Review of Systems Includes: Review [...] anxiety Last Documented On 2 9:26AM ; [facility], [facility] Physical Exam Includes: Physical Exam from this encounter Allergies Includes: Active Allergies No Known Allergies Care Sweetbread Trimmer Name (Identifier) Role/Relation Location/Telecom Last Documented By Ben Powell MD ([id number]) Assigned practitioner (occupation) tel: Last Documented On 05/28/2022 9:12PM ; [facility], [facility] PERICO AWAN MD ([id number]) Primary care physician (occupation) [address], [place], , [address] tel: Last Documented On 05/28/2022 9:12PM ; [facility], [facility] Encounters Encounter Provider Location (Healthcare Service Location) Date Check-In Time Check-Out Time Diagnosis Encounter Disposition IN HOUSE REFERRAL Giovanni zepeda MD [facility] 2021 9:21AM 10:24AM Payer Includes: Active Insurance Policies Plan Name (Payer ID) Coverage Type Member ID Group # Subscriber (ID) Relationship Effective Dates 1 - Medicare Part B [facility] ([id number]) [id number] Francesco Robersonde Self Last Documented On 2 12:25PM ; [facility], [facility] 2 - [employer] ([id number]) [id number] Francesco Kyree Chavez - Unknown Last Documented On 2 2:19PM ; [facility], [facility]
--- OUTSIDE RECORDS SUMMARY | 2025-07-11 04:31 | XMS_ITS ---
Care Plan - [facility], [facility] Created on: July 11, 2025 Francesco Adorno : 1940 Sex: Male Author Organization [facility] Address [address] [place] [address] Phone Care Team Providers Care Trommel Tender Name Role Phone Andre DAILY, Ben Unavailable [phone] EMPERATRIZ DAILY, PERICO Alcaraz Primary Care Provider [phone]
--- OUTSIDE RECORDS SUMMARY | 2025-07-11 04:32 | XMS_ITS | Encounter Summary ---
Author Organization [employer] ([place], [place], [place], [place], [place]) Address [address] [place] [address] Care Team Providers Care Compounding Technician Name Role Phone Robert Batista MD Primary Care Provider [phone] Encounter Details Date Type Department Care Team (Late st Contact Info) Description 01/14/2021 Transcribed Document [facility] [place] [facility] [place] [address] ProviderMacrina MD [address] [place] [id number] Social History Tobacco Use Types Packs/Day Years [...] 0.5 MCG/KG/. Awake and following commands, positive planned giving officer in bilateral hands. MRI brain yesterday revealed [...] 180s. 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; envelope stuffer and moves extremities bilaterally but weaker on [...] At risk for sleep apnea / IMO [id number] / Confirmed Colorectal surgery / SNOMED CT 9241935675 / Confirmed Aortic valve stenosis / SNOMED CT 310083477 / Confirmed HTN - Hypertension / SNOMED CT 5425760914 / Confirmed At risk for violence / IMO [id number] / Confirmed, Active Problems (14) Aortic stenosis, [...] Resp Rate 18 (JAN 13 16:03) 16 (JAN 13 10:36) 18 (JAN 13 16:00) SBP 123 (JAN 14 08:49) 107 (JAN 13 14:31) 123 (JAN 14 08:49) DBP 72 (JAN 14 08:49) 69 (JAN 13 16:00) 79 (DEC 20 10:30) MAP 90 (JAN 14 05:15) [...] WBC H 11.3 (JAN 14) H 11.9 (JAN 13) H 11.8 (JAN 12) H 13.5 (DEC 18) HB L 9.6 (JAN 14) L 9.5 (DEC 20) L 9.6 (DEC 19) L 8.9 (DEC 18) HCT L 29.9 (JAN 14) L 29.4 (CESAR 20) L 29.6 (DEC 19) L 28.3 (DEC 18) Plt H 460 (JAN 14) H 490 (DEC 20) H 472 (DEC 19) H 415 (DEC 18) Na L 133 (CESAR 21) L 135 (CESAR 20) 138 (CESAR 19) 139 (CESAR 18) K 4.5 (CESAR 21) 4.4 (CESAR 20) 4.4 (CESAR 19) 4.5 (CESAR 18) Cl L 101 (CESAR 21) L 101 (CESAR [...] Gas Results Found (Past 24 Hours) JAN 14 03:26 L 133 L 101 H 36 / H 140 4.5 29 0.80 \ JAN 14 03:26 \ L 9.6 / H 11.3 H 460 / L 29.9 \ Blood Gases (Current Encounter/Past 24 Hours) No Blood Gas Results Found (Past 24 Hours) Radiology Results (Last 48 hours) [id number] -- 12/27/2020 06:39 CR Chest 1 Vw [...] benefit from inpatient rehab. Recommend transfer to [facility] for inpatient rehab. FULL CODE Prognosis - [...] on filedocumented in this encounter Care Teams Compounding Technician Relationship Specialty Start Date End Date Robert Batista MD [address] [place] [address] PCP - General Family Medicine 07/04/25 documented as of this encounter
--- OUTSIDE RECORDS SUMMARY | 2025-07-11 04:32 | XMS_ITS | Encounter Summary ---
Author Organization [employer] ([place], [place], [place], [place], [place]) Address [address] [place] [address] Care Team Providers Care Gis Scientist Name Role Phone Robert Batista MD Primary Care Provider [phone] Encounter Details Date Type Department Care Team (Late st Contact Info) Description 01/14/2021 Transcribed Document [facility] [place] Family Medicine [facility] [place] [address] ProviderMacrina MD [address] [place] [address] Social History Tobacco Use Types Packs/Day Years Used Date Smoking Tobacco: Never Assessed Sex and Gender Information Value Date Recorded Sex Assigned at Not on file Legal Sex Male 1:13 PM CDT Gender Identity Not on file Sexual Orientation Not on file documented as of this encounter Miscellaneous Notes * Cerner Conversion Note - Macrina Cordova MD - 01/14/2021 5:33 PM CDT Consult Phone Call Documentation Entered On: 01/15/2021 10:27 EDT Performed On: 01/14/2021 17:33 EDT by Asia Stinson Construction Management AssistantHealth Unit Coord Phone Call for Consults Consult Phone Call/Page Attempt : First call Consult Reason : PEG placement Physician Requesting Consult : EMEKA MADERA MD-CAT Physician Requested for Consult : PEYTON BEATTY MD Provider Service Notified Name : Other: general surgery Date and Time Call Returned : 01/15/2021 10:27 EDT Asia Stinson Care AsstHealth Unit Coord - 01/15/2021 10:26 EDT documented in this encounter Plan of Treatment Not on file documented as of this encounter Visit Diagnoses Not on filedocumented in this encounter Care Teams Gis Scientist Relationship Specialty Start Date End Date Robert Batista MD [address] [place] [address] PCP - General Family Medicine 07/04/25 documented as of this encounter
--- OUTSIDE RECORDS SUMMARY | 2025-07-11 04:32 | XMS_ITS | Encounter Summary ---
Author Organization [employer] ([place], [place], [place], [place], [place]) Address [address] [place] [address] Care Team Providers Care Vibrator Operator Name Role Phone Robert Batista MD Primary Care Provider [phone] Encounter Details Date Type Department Care Team (Late st Contact Info) Description 01/12/2021 Transcribed Document [facility] [place] [facility] [place] [address] ProviderMacrina MD [address] [place], [place] [id number] Social History Tobacco Use Types Packs/Day Years [...] 1012. 01/02/21: POD#6 Intubated and sedated on Znpevlvn262mah/hr and Precedex .6mcg/kg/min. He is also on [...] 50ml/hr Continue P.T. Transfer to [facility] Pt will need rehab when clinically ready 01/11/21 POD#15 O2 91% 2L/NC TF 50ml/hr Continue P.T. Awaiting transfer to [facility] 01/12/2021 POD #16 Continues tube feedings, [...] Pre-Op Diagnosis, Medical. Electronically signed by [facility] Conversion Booth Operator Cerner at 11/10/2022 9:26 AM CDT documented in this encounter Plan of Treatment Not on file documented as of this encounter Visit Diagnoses Not on filedocumented in this encounter Care Teams Vibrator Operator Relationship Specialty Start Date End Date Robert Batista MD [address] [place], [place] [address] PCP - General Family Medicine 07/04/25 documented as of this encounter
--- OUTSIDE RECORDS SUMMARY | 2025-07-11 04:32 | XMS_ITS | Encounter Summary ---
Author Organization [employer] ([place], [place], [place], [place], [place]) Address [address] [place] [address] Care Team Providers Care Quality Control Expert Name Role Phone Robert Batista MD Primary Care Provider [phone] Encounter Details Date Type Department Care Team (Late st Contact Info) Description 01/14/2021 Transcribed Document [facility] [place] [facility] [place] [address] ProviderMacrina MD [address] [place] [address] Social History Tobacco Use Types [...] On: 01/14/2021 15:40 EDT by ASHLEY CHAIDEZ RN-Business Systems ArchitectKettle Operator Progress Note Patient Offered Choice/Affiliations Explained : Yes List/Info Provided Pt/Fam/Support Person : Other: Acute Rehab Were Referrals Sent to Post Acute Providers : Yes Is the Patient Meeting Medical Necessity : Yes Physician Agreeable to Move Forward with D/C Plan? : Yes Did you Attend Multidisciplinary Rounds? : Yes ASHLEY CHAIDEZ RN-Business Systems Architect - 01/14/2021 15:42 EDT Discharge Arrangements : Patient Post-Acute Information Patient Name: JOSE ADORNO Gender: Male : [birth year] Age: 80 Years No Post-Acute Placement(s) Listed No Post-Acute Service(s) Listed No [place] Referral(s) Listed ASHLEY CHAIDEZ RN-Business Systems Architect - 01/14/2021 15:40 EDT Discharge Options Discussed with Patient : Acute rehabilitation, Discharge transportation ASHLEY CHAIDEZ RN-Business Systems Architect - 01/14/2021 15:42 EDT Barriers to Discharge Identified : Clinical Condition of Patient, Follow-Up appointments needed Barriers to Discharge Unresolved : Clinical Condition of Patient ASHLEY CHAIDEZ RN-Business Systems Architect - 01/14/2021 15:40 EDT Narrative Progress Note [...] modA. DCP: Referral made to [facility], patient's 1st choice, via [facility]. bao Barnes said her MD would accept patient but would like for his PEG to be placed prior to discharge. Patient has traditional Medicare so he will not need a preauth. Historical Progress Note : HD#15; ELOS 3; LRR; BOOST 6; POD#15 - ElecTAVR/LVentTear/Tamponade = 02=1L; NC=167; TF/Corpak 50cc; voice improving; working w/ST for dysphagia; plan for repeat instrumental in 1 wk; ongoing therapy; spouse to provide choicing for STR; on transfer out of [facility]. SOPHY RM Rn-Business Systems Architect - 01/11/21 09:38:52 HD#14; ELOS 3; LRR; BOOST 6; POD#14 - ElecTAVR/LVentTear/Tamponade = 02=2L; BIPAP prn; Duonebs; Cefepime/Zosyn; FEES today; Cardiology managing Tacycardia; per LOS recommendation - pt referred to LTAC; likely DCP subacute rehab; anticipate transfer to floor soon. SOPHY RM Rn-Business Systems Architect - 01/10/21 08:19:07 HD#13; ELOS 3; LRR; BOOST 6; POD#13 - ElectiveTAVR/LVentTear/Tamponade - 02=2L; BIPAP prn for WOB/hs; Duonebs/IS/FVD encouraged; Patricio gtt; central line d/c 01/08/PICC placed; T=100; Maxipime; working with therapy - very weak; Mod-Max A x2 to EOB - not safe to stand; ST - failed/ongoing dysphagia tx; Corpak/TF; DCP rehab - improving. SOPHY RM Rn-Business Systems Architect - 01/09/21 07:48:59 HD#12; ELOS 3; LRR; BOOST 6; POD #12 - Electiv TAVR/LVentTear/Cardiac Tamponade SOPHY RM Rn-Business Systems Architect - 01/08/21 14:56:21 HD#12; ELOS 3; LRR; BOOST 6; POD #12 - Electiv TAVR/LVentTear/Cardiac Tamponade/Embolic Strokes w/ R side weakness; RA; IS/FVD encouraged; report pt with delerium/lethargy overnight - pulled out IV; PICC ordered today; R arm weakness; Corpak/TF - failed ST evaluation - improving; DCP Rehab; continue to follow SOPHY RM, Rn-Business Systems Architect - 01/08/21 14:58:32 HD#11; ELOS 3; MRR; BOOST 6; POD#11 - Elective TAVR/LVentTear/Cardiac Tamponade; 02=2L; Maxipime/Ancef; IV Bumex; working w/therapy and stood at side of bed; SOPHY RM Rn-Business Systems Architect - 01/07/21 14:34:53 HD#11; ELOS 3; MRR; BOOST 6; POD#11 - Elective TAVR/LVentTear/Cardiac Tamponade; 02=2L; Maxipime/Ancef; IV Bumex; working w/therapy and stood at side of bed; ST - ongoing rec for NPO r/t dysphagia - tx; instrumental 3-4 days; Corpak/TF; DCP anticipate rehab; initial referrals placed thru [facility] and list w/post acute star ratings provided to pt for choicing. SOPHY RM Rn-Business Systems Architect - 01/07/21 14:36:37 HD#8; ELOS 3; LRR; BOOST 6; POD#8 - Elec TAVR/LVentTear/Cardiac Tamponade - intubated fi02 100; awake/calm/following commands; bronchoscopy scheduled today; SBT; T=101.2; MRI - diffuse scattered bilateral infarcts; Dr. Navarro states during MDR that if pt is unable to successfully wean over weekend will need trach/peg consult on Thursday; continue to follow; will need therapy evaluations when extubated. SOPHY RM Rn-Business Systems Architect - 01/04/21 15:16:12 HD#7; ELOS 3; LRR; BOOST 6; POD#7 - Elective TAVR/LVentTear/CardiacTamponade/Arrest - intubated fi02 40/peep 8; SBT x 2 hr; Fent/Precedex gtt; Corpak/TF; Humza CT in place; Neurology following - MRI diffuse scattered bilateral infarcts; pt w/improvement in movement of R side; PT/OT evaluations when extubated; DCP TBD - likely rehab. SOPHY RM Rn-Business Systems Architect - 01/03/21 15:03:09 HD#6; ELOS 3; LRR; BOOST 6; POD #6 - Electiv TAVR/L Vent Tear/Cardiac Tamponode/Arrest - reintubated 01/01; fi02 40; Levo/Fent/Precedex gtt; wean sedation - on SBT 2hr TID; T=99.9; Dr. Navarro states during MDR that pt's spouse aware may need trach/peg; DCP TBD pending progress. SOPHY RM, Rn-Business Systems Architect - 01/02/21 14:55:12 HD#5; ELOS 3; LRR; BOOST 6; POD #5 - Elective TAVR/L Ventrial Tear/Cardiac Tamponode; extubated on 12/31 required reintubation today fi02 60/peep 8; Precedex/Fent gtt; Corpak/TF; IV Zosyn; CT draining; T=100; DCP TBD pending progress; will need therapy evals when appropriate. SOPHY RM Rn-Business Systems Architect - 01/01/21 14:47:57 HD#4; ELOS 3; LRR; POD#4 - Electiv TAVR; L Ventrical Tear; intubated fi02 50; Cardene gtt; Corpak to be placed and TF initiated; SBT today; following commands; Head MRI ordered; possible extubation post MRI; no movement noted on R side; will need PT/OT evaluations when extubated; DCP pending progress - likely rehab. SOPHY RM Rn-Business Systems Architect - 12/31/20 14:58:43 DCP TBD - pending progress; OP Cardiac Rehab referral placed thru [facility]. SOPHY RM Rn-Business Systems Architect - 12/28/20 12:42:03 ASHLEY CHAIDEZ RN-Business Systems Architect - 01/14/2021 15:42 EDT documented in this encounter Plan of Treatment Not on file documented as of this encounter Visit Diagnoses Not on filedocumented in this encounter Care Teams Quality Control Expert Relationship Specialty Start Date End Date Robert Batista MD [address] [place] [address] PCP - General Family Medicine 07/04/25 documented as of this encounter
--- OUTSIDE RECORDS SUMMARY | 2025-07-11 04:32 | XMS_ITS | Encounter Summary ---
Author Organization [employer] ([place], [place], [place], [place], [place]) Address [address] [place] [address] Care Team Providers Care Food Service Clerk Name Role Phone Robert Batista MD Primary Care Provider [phone] Encounter Details Date Type Department Care Team (Late st Contact Info) Description 01/08/2021 Transcribed Document [facility] [place] Family Medicine [address] [place] [address] ProviderMacrina MD [address] [place] [address] Social History Tobacco Use Types Packs/Day Years Used Date Smoking Tobacco: Never Assessed Sex and Gender Information Value Date Recorded Sex Assigned at Not on file Legal Sex Male 1:13 PM CDT Gender Identity Not on file Sexual Orientation Not on file documented as of this encounter Miscellaneous Notes * Cerner Conversion Note - Macrina ProviderMD - 01/08/2021 3:00 AM CDT Nutrition Assessment Entered On: 01/08/2021 10:08 EDT Performed On: 01/08/2021 11:42 EDT by Tamy Wolff Dietitian Nutrition Assessment Current Nutrition Regimen Comment : 01/08: high f/up. Per FREEZER PERSON notes, pt not ready for instrumental. [...] Continue Osmolite 1.5 @ 50ml/hr + 1 [id number] daily (provides 1710kcal, 83g PRO). If pt [...] - 01/08/2021 11:40 EDT Electronically signed by [facility] Conversion Lead Former Cerner at 11/10/2022 9:07 AM CDT documented in this encounter Plan of Treatment Not on file documented as of this encounter Visit Diagnoses Not on filedocumented in this encounter Care Teams Food Service Clerk Relationship Specialty Start Date End Date Robert Batista MD [address] [place], [place] [address] PCP - General Family Medicine 07/04/25 documented as of this encounter
--- OUTSIDE RECORDS SUMMARY | 2025-07-11 04:32 | XMS_ITS | Encounter Summary ---
Author Organization [employer] ([place], [place], [place], [place], [place]) Address [address] [place] [address] Care Team Providers Care Code Machine Operator Name Role Phone Robert Batista MD Primary Care Provider [phone] Encounter Details Date Type Department Care Team (Late st Contact Info) Description 01/08/2021 Transcribed Document [facility] Cardiology [address] [place] [id number] [place] [address] [place] [address] [address] [place] [address] Social History Tobacco Use Types Packs/Day Years Used Date Smoking Tobacco: Never Assessed Sex and Gender Information Value Date Recorded Sex Assigned at Not on file Legal Sex Male 1:13 PM CDT Gender Identity Not on file Sexual Orientation Not on file documented as of this encounter Miscellaneous Notes * Cerner Conversion Note - Arthur Gomez MD - 01/08/2021 8:18 AM EDT Patient: JOSE ADORNO Age: 80 years Sex: Male : 1940 Associated Diagnoses: None Author: ARTHUR GOMEZ MD-CAR Basic Information PCP: Robert Batista MD Primary Wood Car Builder: Arthur Gomez MD Subjective Resting in bed. [...] (JAN 08 06:00) H 178 (JAN 07 12:) DBP L 56 (JAN 08 06:00) L 56 (JAN 08 06:00) H 123 (JAN 07 14:) MAP 72 (JAN 08:) 72 (JAN 08 06:00) 132 (JAN 07:) SpO2 L 93 (JAN 08:) L 92 (JAN 07:) 99 (JAN 07 08:29) General: Alert and [...] (Current Encounter/Past 24 Hours) ProBNP 5653 pg/mL NM 01/07/2021 05:56 Radiology Results (Last 48 hours) [id number] -- 12/27/2020 06:39 CR Chest 1 Vw [...] s/p pericardiocentesis and surgical repair of LV [place]. PEA Arrest; CODE called 10 minutes to [...] on filedocumented in this encounter Care Teams Code Machine Operator Relationship Specialty Start Date End Date Robert Batista MD [address] [place] [address] PCP - General Family Medicine 07/04/25 documented as of this encounter
--- OUTSIDE RECORDS SUMMARY | 2025-07-11 04:32 | XMS_ITS | Encounter Summary ---
Author Organization [email or web address] ([place], [place], [place], [place], [place]) Address [address] [place] [address] Care Team Providers Care Radioactive Waste Disposal Dispatcher Name Role Phone Robert Batista MD Primary Care Provider [phone] Encounter Details Date Type Department Care Team (Late st Contact Info) Description 01/08/2021 Transcribed Document [facility] [place] [address] ProviderMacrina MD [address] [place] [id number] Social History Tobacco Use Types Packs/Day Years [...] 0.5 MCG/KG/. Awake and following commands, positive personal development educator in bilateral hands. MRI brain yesterday revealed [...] 180s. 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 but weaker [...] At risk for sleep apnea / IMO [id number] / Confirmed Colorectal surgery / SNOMED CT 7817755374 / Confirmed Aortic valve stenosis / SNOMED CT 416332007 / Confirmed HTN - Hypertension / SNOMED CT 0287365714 / Confirmed At risk for violence / IMO 97288093 / Confirmed Hypertension / SNOMED CT 47559830 / Confirmed Hyperlipidemia / SNOMED CT 73709120 / Confirmed Chronic anxiety / SNOMED CT 332961324 / Confirmed GERD - Gastro-esophageal reflux disease / SNOMED CT 5525365991 / Confirmed Disorder of prostate / SNOMED CT 22090511 / Confirmed Back pain, chronic / SNOMED CT 676081106 / Confirmed Aortic stenosis, severe / SNOMED CT 3458411011 / Confirmed Arthritis of right knee / SNOMED CT 6585163828 / Confirmed H/O peripheral neuropathy / SNOMED CT 759282304 / Confirmed feet tingle all the time Resolved: Cancer of colon / SNOMED CT 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, Active Problems (14) Aortic stenosis, severe Aortic [...] Mon HR 101 (JAN 08 13:00) 97 (JAN 08 00:51) 116 (JAN 07 16:47) Resp Rate H 25 (JAN 08 13:00) 16 (JAN 07 18:00) H 39 (JAN 07 23:00) SBP 140 (JAN 08 13:00) L 87 (JAN 08 08:00) H 170 (JAN 07 17:00) DBP 65 (JAN 08 13:00) L 49 (JAN 08 08:00) 84 (JAN 07 17:00) MAP 94 (JAN 08 13:00) 62 (DEC 15 08:00) 118 (DEC 14 17:00) SpO2 95 (JAN 08 13:00) L 93 (DEC 14 21:00) 99 [...] WBC H 16.3 (DEC 15) H 15.3 (DEC 14) H 15.8 (DEC 13) H 9.9 (CESAR 12) HB L 10.0 (DEC 15) L 9.4 (CESAR 14) L 9.2 (CESAR 13) L 7.8 (CESAR 12) HCT L 30.7 (DEC 15) L 29.7 (CESAR 14) L 28.1 [...] Gas Results Found (Past 24 Hours) CESAR 15 05:45 139 102 H 31 / H 147 3.8 30 0.80 \ JAN 08 05:45 \ L 10.0 / H 16.3 H 410 / L 30.7 \ Blood Gases (Current Encounter/Past 24 Hours) No Blood Gas Results Found (Past 24 Hours) Radiology Results (Last 48 hours) [id number] -- 12/27/2020 06:39 CR Chest 1 Vw [...] ZAVALA. Electronically signed by Olinda Payne Conversion Cigarette Making Machine Operator Cerner at 11/10/2022 9:15 AM CDT documented in this encounter Plan of Treatment Not on file documented as of this encounter Visit Diagnoses Not on filedocumented in this encounter Care Teams Radioactive Waste Disposal Dispatcher Relationship Specialty Start Date End Date Robert Batista MD [address] [place] [address] PCP - General Family Medicine 07/04/25 documented as of this encounter
--- OUTSIDE RECORDS SUMMARY | 2025-07-11 04:32 | XMS_ITS | Encounter Summary ---
Author Organization [employer] ([place], [place], [place], [place], [place]) Address [address] [place] [address] Care Team Providers Care Cabin Cleaner Name Role Phone Robert Batista MD Primary Care Provider [phone] Encounter Details Date Type Department Care Team (Late st Contact Info) Description 01/14/2021 Transcribed Document [facility] [place] Medicine [address] [place] [address] ProviderMacrina MD [address] [place] [address] Social History Tobacco Use Types Packs/Day Years Used Date Smoking Tobacco: Never Assessed Sex and Gender Information Value Date Recorded Sex Assigned at Not on file Legal Sex Male 1:13 PM CDT Gender Identity Not on file Sexual Orientation Not on file documented as of this encounter Miscellaneous Notes * Cerner Conversion Note - Macrina ProviderMD - 01/14/2021 5:00 PM CDT Chart Check - Review Order Profile Entered On: 01/14/2021 15:03 EDT Performed On: 01/14/2021 17:00 EDT by Pavel Rizvi, Boat Outboard Engine Mechanic-Student Nurse Chart Check Powerplans Initiated/Discontinued as Appropriate : Not applicable All Active Orders Reviewed : Yes Pavel Rizvi, Boat Outboard Engine Mechanic-Student Nurse - 01/14/2021 15:03 EDT Electronically signed by [facility] Conversion Nursing Assoc Cerner at 11/10/2022 9:12 AM CDT documented in this encounter Plan of Treatment Not on file documented as of this encounter Visit Diagnoses Not on filedocumented in this encounter Care Teams Cabin Cleaner Relationship Specialty Start Date End Date Robert Batista MD [address] [place], [place] [address] PCP - General Family Medicine 07/04/25 documented as of this encounter
--- OUTSIDE RECORDS SUMMARY | 2025-07-11 04:32 | XMS_ITS | Encounter Summary ---
Author Organization [employer] ([place], [place], [place], [place], [place]) Address [address] [place] [address] Care Team Providers Care Wafer Fabricator Name Role Phone Robert Batista MD Primary Care Provider [phone] Encounter Details Date Type Department Care Team (Late st Contact Info) Description 01/12/2021 Transcribed Document [facility] Family Medicine [address] [place] [address] ProviderMacrina MD [address] [place] [address] Social History Tobacco Use Types Packs/Day Years Used Date Smoking Tobacco: Never Assessed Sex and Gender Information Value Date Recorded Sex Assigned at Not on file Legal Sex Male 1:13 PM CDT Gender Identity Not on file Sexual Orientation Not on file documented as of this encounter Miscellaneous Notes * Cerner Conversion Note - Macrina Cordova MD - 01/12/2021 1:52 AM CDT Meds to Bed Enrollment Entered On: 01/13/2021 13:48 EDT Performed On: 01/12/2021 1:52 EDT by SALLY JAIN [facility] Meds to Bed Enrollment Patient Enrollment Decision: : Yes/enroll in meds to bed program SALLY JAIN [facility] - 01/13/2021 13:48 EDT documented in this encounter Plan of Treatment Not on file documented as of this encounter Visit Diagnoses Not on filedocumented in this encounter Care Teams Wafer Fabricator Relationship Specialty Start Date End Date Robert Batista MD [address] [place] [address] PCP - General Family Medicine 07/04/25 documented as of this encounter
--- OUTSIDE RECORDS SUMMARY | 2025-07-11 04:32 | XMS_ITS | Encounter Summary ---
Author Organization [employer] ([place], [place], [place], [place], [place]) Address [address] [place] [address] Care Team Providers Care Valving Machine Operator Name Role Phone Robert Batista MD Primary Care Provider [phone] Encounter Details Date Type Department Care Team (Late st Contact Info) Description 01/08/2021 Transcribed Document [facility] Family Medicine [address] [place] [address] ProviderMacrina MD [address] [place] [address] Social History Tobacco Use Types Packs/Day Years Used Date Smoking Tobacco: Never Assessed Sex and Gender Information Value Date Recorded Sex Assigned at Not on file Legal Sex Male 1:13 PM CDT Gender Identity Not on file Sexual Orientation Not on file documented as of this encounter Miscellaneous Notes * Cerner Conversion Note - Macrina ProviderMD - 01/08/2021 5:00 PM CDT Chart [...] on filedocumented in this encounter Care Teams Valving Machine Operator Relationship Specialty Start Date End Date Robert Batista MD [address] [place], [place] [address] PCP - General Family Medicine 07/04/25 documented as of this encounter
--- OUTSIDE RECORDS SUMMARY | 2025-07-11 04:32 | XMS_ITS | Encounter Summary ---
Author Organization [employer] ([place], [place], [place], [place], [place]) Address [address] [place] [address] Care Team Providers Care Scalemaker Name Role Phone Robert Batista MD Primary Care Provider [phone] Encounter Details Date Type Department Care Team (Late st Contact Info) Description 01/08/2021 Transcribed Document [facility] [place] [address] [place] [address] ProviderMacrina MD [address] [place] [address] Social History Tobacco Use Types Packs/Day Years Used Date Smoking Tobacco: Never Assessed Sex and Gender Information Value Date Recorded Sex Assigned at Not on file Legal Sex Male 1:13 PM CDT Gender Identity Not on file Sexual Orientation Not on file documented as of this encounter Miscellaneous Notes * Cerner Conversion Note - Macrina Cordova MD - 01/08/2021 8:35 AM CDT Sepsis Screening [...] on filedocumented in this encounter Care Teams Scalemaker Relationship Specialty Start Date End Date Robert Batista MD [address], [place] [address] PCP - General Family Medicine 07/04/25 documented as of this encounter
--- OUTSIDE RECORDS SUMMARY | 2025-07-11 04:32 | XMS_ITS | Encounter Summary ---
Author Organization [employer] ([place], [place], [place], [place], [place]) Address [address] [place] [address] Care Team Providers Care Microbiology Lab Assistant Name Role Phone Robert Batista MD Primary Care Provider [phone] Encounter Details Date Type Department Care Team (Late st Contact Info) Description 01/14/2021 Transcribed Document [facility] [place] [facility] [place] [address] ProviderMacrina MD [address] [place], [place] [address] Social History Tobacco Use Types Packs/Day Years [...] 1012. 01/02/21: POD#6 Intubated and sedated on [id number]/hr and Precedex .6mcg/kg/min. He is also on [...] prior to transfer to [facility] Diagnosis Anxiety - Pre-Op Diagnosis, Medical. [...] - Pre-Op Diagnosis, Medical. Electronically signed by [facility], [facility] Conversion Field Adjuster Cerner at 11/10/2022 9:18 AM CDT documented in this encounter Plan of Treatment Not on file documented as of this encounter Visit Diagnoses Not on filedocumented in this encounter Care Teams Microbiology Lab Assistant Relationship Specialty Start Date End Date Robert Batista MD [address] [place] [address] PCP - General Family Medicine 07/04/25 documented as of this encounter
--- OUTSIDE RECORDS SUMMARY | 2025-07-11 04:32 | XMS_ITS | Encounter Summary ---
Author Organization [employer] ([place], [place], [place], [place], [place]) Address [address] [place] [address] Care Team Providers Care Diesel Mechanic Apprentice Name Role Phone Robert Batista MD Primary Care Provider [phone] Encounter Details Date Type Department Care Team (Late st Contact Info) Description 01/08/[address] [facility] [place] [facility] [address] ProviderMacrina MD [address] [place], [place] [address] Social History Tobacco Use Types Packs/Day Years [...] 1012. 01/02/21: POD#6 Intubated and sedated on [id number]/hr and Precedex .6mcg/kg/min. He is also on [...] and I know he just worked with [facility]. Health Status Allergies: Allergic Reactions (Selected) No [...] - Pre-Op Diagnosis, Medical. Electronically signed by [facility], [facility] Conversion Environmental Control Administrator Cerner at 11/10/2022 9:24 AM CDT documented in this encounter Plan of Treatment Not on file documented as of this encounter Visit Diagnoses Not on filedocumented in this encounter Care Teams Diesel Mechanic Apprentice Relationship Specialty Start Date End Date Robert Batista MD [address] [place] [address] PCP - General Family Medicine 07/04/25 documented as of this encounter
--- OUTSIDE RECORDS SUMMARY | 2025-07-11 04:32 | XMS_ITS | Encounter Summary ---
Author Organization [employer] ([place], [place], [place], [place], [place]) Address [address] [place] [address] Care Team Providers Care Data Review Specialist Name Role Phone Robert Batista MD Primary Care Provider [phone] Encounter Details Date Type Department Care Team (Late st Contact Info) Description 01/12/2021 Transcribed Document [facility] [place] [facility] [place] [address] ProviderMacrina MD [address] [place], [place] [id number] Social History Tobacco Use Types Packs/Day Years [...] MD-CAR BASIC PCP: Robert Batista MD Primary Couturiere: Arthur Gomez MD Subjective NAD Health Status [...] At risk for sleep apnea / IMO [id number] / Confirmed Colorectal surgery / SNOMED CT 7642654345 / Confirmed Aortic valve stenosis / SNOMED CT 623697865 / Confirmed HTN - Hypertension / SNOMED CT 4741549789 / Confirmed At risk for violence / IMO 23969474 / Confirmed Hypertension / SNOMED CT 92802753 / Confirmed Hyperlipidemia / SNOMED CT 54534801 / Confirmed Chronic anxiety / SNOMED CT 805169088 / Confirmed GERD - Gastro-esophageal reflux disease / SNOMED CT 5689715908 / Confirmed Disorder of prostate / SNOMED CT 22434226 / Confirmed Back pain, chronic / SNOMED CT 472070318 / Confirmed Aortic stenosis, severe / SNOMED CT 4090042417 / Confirmed Arthritis of right knee / SNOMED CT 9385805781 / Confirmed H/O peripheral neuropathy / SNOMED CT 082765825 / Confirmed feet tingle all the time [...] (JAN 12 02:20) Apical HR H 104 (JAN 11 21:17) H 104 (JAN 11 21:17) H 108 (JAN 11 08:33) Mon HR 96 (JAN 12 04:39) 86 (JAN 11 23:00) 106 (JAN 11 09:00) Resp Rate 18 (JAN 12 02:20) 14 (JAN 11 14:00) H 38 (JAN 11 13:00) SBP 116 (JAN 12 04:39) 95 (JAN 11 12:00) H 154 (JAN 11 19:00) DBP 71 (JAN 12 04:39) L 57 (JAN 11 23:00) 87 (JAN 12 02:20) MAP 83 [...] 11.8 H 472 / L 29.6 \ [id number] -- 12/27/2020 06:39 CR Chest 1 Vw [...] personally viewed, interpreted and dictated the examination. Carlosmeño read and agree with the above final [...] nonischemic cardiomyopathy, Echo EF 55% (01-10-21) 11/15/19 [facility] no obstructive disease. BAV 09/19/19 - ECHO EF 40%. severe aortic stenosis peak P mean P.83 s/p TAVR 12/27/2020. Apical perforation/Acute tamponade s/p pericardiocentesis and surgical repair of LV Page. *PEA Arrest; CODE called 10 minutes to [...] filedocumented in this encounter Care Teams Data Review Specialist Relationship Specialty Start Date End Date Robert Batista MD [address] [place], [place] [address] PCP - General Family Medicine 07/04/25 documented as of this encounter
--- OUTSIDE RECORDS SUMMARY | 2025-07-11 04:32 | XMS_ITS | Encounter Summary ---
Author Organization [employer] ([place], [place], [place], [place], [place]) Address [address] [place] [address] Care Team Providers Care Fisher Reef Net Name Role Phone Robert Batista MD Primary Care Provider [phone] Encounter Details Date Type Department Care Team (Late st Contact Info) Description 01/08/2021 Transcribed Document [facility] [place] [address] ProviderMacrina MD [address] [place] [address] Social History Tobacco Use Types Packs/Day Years Used Date Smoking Tobacco: Never Assessed Sex and Gender Information Value Date Recorded Sex Assigned at Not on file Legal Sex Male 1:13 PM CDT Gender Identity Not on file Sexual Orientation Not on file documented as of this encounter Miscellaneous Notes * Cerner Conversion Note - Macrina Cordova MD - 01/08/2021 11:37 AM CDT Central Line Checklist Entered On: 01/08/2021 11:39 EDT Performed On: 01/08/2021 11:37 EDT by Summer Navas RN Central Line Checklist History and Physical on Chart : Yes Central Line Insertion Facility : [facility] Central Line Insertion Start Date/Time : 01/08/2021 11:13 EDT Central Catheter Type : Power injection PICC Central Line Lot Number : [id number] Central Line Vessel Cannulated : Brachial vein [...] prepped/draped CL Time Out Additional Attendees : Li Washington, SHYAM Olivia, RN Summer Navas, SHYAM 1% Lidocaine Amt Used as Anesthetic : 2 mL Central IV Sterile Field Maintained : Yes Central IV Sterile Technique Maintained : Yes Central Line Secure with : Stabilization device Central Line Dressing Dated : Yes RN Notified to Withhold Until Confirmed : Yes Summer Navas RN - 01/08/2021 11:37 EDT Electronically signed by [facility] Conversion Instructor Warper Cerner at 11/10/2022 9:25 AM CDT documented in this encounter Plan of Treatment Not on file documented as of this encounter Visit Diagnoses Not on filedocumented in this encounter Care Teams Fisher Reef Net Relationship Specialty Start Date End Date Robert Batista MD [address] [place] [address] PCP - General Family Medicine 07/04/25 documented as of this encounter
--- OUTSIDE RECORDS SUMMARY | 2025-07-11 04:32 | XMS_ITS | Encounter Summary ---
Author Organization [employer] ([place], [place], [place], [place], [place]) Address [address] [place] [address] Care Team Providers Care Shaper Hand Name Role Phone Robert Batista MD Primary Care Provider [phone] Encounter Details Date Type Department Care Team (Late st Contact Info) Description 01/13/2021 Transcribed Document [facility] [place] [facility] [place] [address] ProviderMacrina MD [address] [place], [place] [address] Social History Tobacco Use Types Packs/Day Years [...] 1012. 01/02/21: POD#6 Intubated and sedated on [id number]/hr and Precedex .6mcg/kg/min. He is also on [...] tolerating Steady progress 01/13/2021 POD #17 DC Spence Will need rehab placement Diagnosis Anxiety - [...] - Pre-Op Diagnosis, Medical. Electronically signed by [facility] Conversion Executive Chairman Cerner at 11/10/2022 9:13 AM CDT documented in this encounter Plan of Treatment Not on file documented as of this encounter Visit Diagnoses Not on filedocumented in this encounter Care Teams Shaper Hand Relationship Specialty Start Date End Date Robert Batista MD [address] [place], [place] [id number] PCP - General Family Medicine 07/04/25 documented as of this encounter
--- OUTSIDE RECORDS SUMMARY | 2025-07-11 04:32 | XMS_ITS | Encounter Summary ---
Author Organization [employer] ([place], [place], [place], [place], [place]) Address [address] [place] [address] Care Team Providers Care Sde Name Role Phone Robert Batista MD Primary Care Provider [phone] Encounter Details Date Type Department Care Team (Late st Contact Info) Description 01/14/2021 Transcribed Document [facility] [place] Family [place] [address] [place] [address] ProviderMacrina MD [address] [place], [place] [id number] Social History Tobacco Use Types Packs/Day Years Used Date Smoking Tobacco: Never Assessed Sex and Gender Information Value Date Recorded Sex Assigned at Not on file Legal Sex Male 1:13 PM CDT Gender Identity Not on file Sexual Orientation Not on file documented as of this encounter Miscellaneous Notes * Cerner Conversion Note - Macrina Cordova MD - 01/14/2021 11:08 AM CDT Bronchodilator Assessment [...] - 01/14/2021 11:08 EDT Electronically signed by [facility], [facility] Conversion Sales Development Representative Cerner at 11/10/2022 9:27 AM CDT documented in this encounter Plan of Treatment Not on file documented as of this encounter Visit Diagnoses Not on filedocumented in this encounter Care Teams Sde Relationship Specialty Start Date End Date Robert Batista MD [address] [place] [address] PCP - General Family Medicine 07/04/25 documented as of this encounter
--- OUTSIDE RECORDS SUMMARY | 2025-07-11 04:32 | XMS_ITS | Encounter Summary ---
Author Organization [employer] ([place], [place], [place], [place], [place]) Address [address] [place] [address] Care Team Providers Care Radiology Administrator Name Role Phone Robert Batista MD Primary Care Provider [phone] Encounter Details Date Type Department Care Team (Late st Contact Info) Description 01/13/2021 Transcribed Document [facility] [place] [address] [place] [address] ProviderMacrina MD [address] [place] [address] Social History Tobacco Use Types Packs/Day Years Used Date Smoking Tobacco: Never Assessed Sex and Gender Information Value Date Recorded Sex Assigned at Not on file Legal Sex Male 1:13 PM CDT Gender Identity Not on file Sexual Orientation Not on file documented as of this encounter Miscellaneous Notes * Cerner Conversion Note - Macrina ProviderMD - 01/13/2021 5:00 PM CDT Chart Check - Review Order Profile Entered On: 01/13/2021 17:15 EDT Performed On: 01/13/2021 17:00 EDT by Dae Salcedo, RN Chart Check Powerplans Initiated/Discontinued as Appropriate : Yes All Active Orders Reviewed : Yes Dae Salcedo, RN - 01/13/2021 17:15 EDT documented in this encounter Plan of Treatment Not on file documented as of this encounter Visit Diagnoses Not on filedocumented in this encounter Care Teams Radiology Administrator Relationship Specialty Start Date End Date Robert Batista MD [address] [place], [place] [address] PCP - General Family Medicine 07/04/25 documented as of this encounter
--- OUTSIDE RECORDS SUMMARY | 2025-07-11 04:32 | XMS_ITS | Encounter Summary ---
Author Organization [employer] ([place], [place], [place], [place], [place]) Address [address] [place] [address] Care Team Providers Care Bus Driver Name Role Phone Robert Batista MD Primary Care Provider [phone] Encounter Details Date Type Department Care Team (Late st Contact Info) Description 01/14/2021 Transcribed Document [facility] [place] Family Medicine [address] [place] [address] ProviderMacrina MD [address] [place], [place] [id number] Social History Tobacco Use Types Packs/Day Years [...] will be a very good candidate for [facility] when ready for discharge; mood is [...] needed from here, call with any questions. Electronically signed by Olinda Payne Conversion Transmission And Coordination Engineer Cerner at 11/10/2022 9:15 AM CDT documented in this encounter Plan of Treatment Not on file documented as of this encounter Visit Diagnoses Not on filedocumented in this encounter Care Teams Bus Driver Relationship Specialty Start Date End Date Robert Batista MD [address] [place], [place] [address] PCP - General Family Medicine 07/04/25 documented as of this encounter
--- OUTSIDE RECORDS SUMMARY | 2025-07-11 04:32 | XMS_ITS | Encounter Summary ---
Author Organization [employer] ([place], [place], [place], [place], [place]) Address [address] [place] [address] Care Team Providers Care Electronic Typesetting Machine Operator Name Role Phone Robert Batista MD Primary Care Provider [phone] Encounter Details Date Type Department Care Team (Late st Contact Info) Description 01/12/2021 Transcribed Document [facility] Family Medicine [address] [place] [address] ProviderMacrina MD [address] [place] [address] Social History Tobacco Use Types Packs/Day Years Used Date Smoking Tobacco: Never Assessed Sex and Gender Information Value Date Recorded Sex Assigned at Not on file Legal Sex Male 1:13 PM CDT Gender Identity Not on file Sexual Orientation Not on file documented as of this encounter Miscellaneous Notes * Cerner Conversion Note - Macrina ProviderMD - 01/12/2021 5:00 PM CDT Chart Check - Review Order Profile Entered On: 01/12/2021 17:14 EDT Performed On: 01/12/2021 17:00 EDT by Dae Salcedo, RN Chart Check Powerplans Initiated/Discontinued as Appropriate : Yes All Active Orders Reviewed : Yes Dae Salcedo, RN - 01/12/2021 17:14 EDT documented in this encounter Plan of Treatment Not on file documented as of this encounter Visit Diagnoses Not on filedocumented in this encounter Care Teams Electronic Typesetting Machine Operator Relationship Specialty Start Date End Date Robert Batista MD [address] [place], [place] [address] PCP - General Family Medicine 07/04/25 documented as of this encounter
--- OUTSIDE RECORDS SUMMARY | 2025-07-11 04:32 | XMS_ITS | Encounter Summary ---
Author Organization [employer] ([place], [place], [place], [place], [place]) Address [address] [place] [address] Care Team Providers Care Advertising Sales Manager Name Role Phone Robert Batista MD Primary Care Provider [phone] Encounter Details Date Type Department Care Team (Late st Contact Info) Description 01/08/2021 Transcribed Document [facility] [place] Family Medicine [facility]ly [facility] [place] [address] ProviderMacrina MD [address] [place] [address] Social History Tobacco Use Types Packs/Day Years Used Date Smoking Tobacco: Never Assessed Sex and Gender Information Value Date Recorded Sex Assigned at Not on file Legal Sex Male 1:13 PM CDT Gender Identity Not on file Sexual Orientation Not on file documented as of this encounter Miscellaneous Notes * Cerner Conversion Note - Macrina Cordova MD - 01/08/2021 2:55 PM CDT On Going Discharge Planning Entered On: 01/08/2021 14:56 EDT Performed On: 01/08/2021 14:55 EDT by SOPHY RM Rn-Gang Saw OperatorBowling Ball Grader Progress Note Discharge Arrangements : Patient Post-Acute [...] Meeting Medical Necessity : Yes SOPHY RM Rn-Gang Saw Operator - 01/08/2021 14:55 EDT Narrative Progress Note Narrative Progress Note : HD#12; ELOS 3; LRR; BOOST 6; POD #12 - Electiv TAVR/LVentTear/Cardiac Tamponade/Embolic Strokes w/ R side weakness; RA; IS/FVD encouraged; report pt with delerium/lethargy overnight - pulled out IV; PICC ordered today; R arm weakness; Corpak/TF - failed ST evaluation - improving; DCP Rehab; continue to follow SOPHY RM Rn-Gang Saw Operator - 01/08/2021 14:56 EDT Historical Progress Note : HD#11; ELOS 3; MRR; BOOST 6; POD#11 - Elective TAVR/LVentTear/Cardiac Tamponade; 02=2L; Maxipime/Ancef; IV Bumex; working w/therapy and stood at side of bed; SOPHY RM Rn-Gang Saw Operator - 01/07/21 14:34:53 HD#11; ELOS 3; MRR; BOOST 6; POD#11 - Elective TAVR/LVentTear/Cardiac Tamponade; 02=2L; Maxipime/Ancef; IV Bumex; working w/therapy and stood at side of bed; ST - ongoing rec for NPO r/t dysphagia - tx; instrumental 3-4 days; Corpak/TF; DCP anticipate rehab; initial referrals placed thru [facility] and list w/post acute star ratings provided to pt for choicing. SOPHY RM Rn-Gang Saw Operator - 01/07/21 14:36:37 HD#8; ELOS 3; [...] need therapy evaluations when extubated. SOPHY RM Rn-Gang Saw Operator - 01/04/21 15:16:12 HD#7; ELOS 3; LRR; BOOST 6; POD#7 - Elective TAVR/LVentTear/CardiacTamponade/Arrest - intubated fi02 40/peep 8; SBT x 2 hr; Fent/Precedex gtt; Corpak/TF; Humza CT in place; Neurology following - MRI diffuse scattered bilateral infarcts; pt w/improvement in movement of R side; PT/OT evaluations when extubated; DCP TBD - likely rehab. SOPHY RM Rn-Gang Saw Operator - 01/03/21 15:03:09 HD#6; ELOS 3; LRR; BOOST 6; POD #6 - Electiv TAVR/L Vent Tear/Cardiac Tamponode/Arrest - reintubated 01/01; fi02 40; Levo/Fent/Precedex gtt; wean sedation - on SBT 2hr TID; T=99.9; Dr. Navarro states during MDR that pt's spouse aware may need trach/peg; DCP TBD pending progress. SOPHY RM Rn-Gang Saw Operator - 01/02/21 14:55:12 HD#5; ELOS 3; LRR; BOOST 6; POD #5 - Elective TAVR/L Ventrial Tear/Cardiac Tamponode; extubated on 12/31 required reintubation today fi02 60/peep 8; Precedex/Fent gtt; Corpak/TF; IV Zosyn; CT draining; T=100; DCP TBD pending progress; will need therapy evals when appropriate. SOPHY RM Rn-Gang Saw Operator - 01/01/21 14:47:57 HD#4; ELOS 3; LRR; POD#4 - Electiv TAVR; L Ventrical Tear; intubated fi02 50; Cardene gtt; Corpak to be placed and TF initiated; SBT today; following commands; Head MRI ordered; possible extubation post MRI; no movement noted on R side; will need PT/OT evaluations when extubated; DCP pending progress - likely rehab. SOPHY RM Rn-Gang Saw Operator - 12/31/20 14:58:43 DCP TBD - pending progress; OP Cardiac Rehab referral placed thru [facility]. SOPHY RM Rn-Gang Saw Operator - 12/28/20 12:42:03 SOPHY RM, Rn-Gang Saw Operator - 01/08/2021 14:55 EDT Electronically signed by [facility] Conversion Perioperative Assistant Cerner at 11/10/2022 9:16 AM CDT documented in this encounter Plan of Treatment Not on file documented as of this encounter Visit Diagnoses Not on filedocumented in this encounter Care Teams Advertising Sales Manager Relationship Specialty Start Date End Date Robert Batista MD [address] [place] [id number] PCP - General Family Medicine 07/04/25 documented as of this encounter
--- NOTE | 2025-07-11 04:41 | HMH.EDGENADL ---
Discharge Plan Disposition Patient Disposition: Home, Self-Care Prescriptions Prescriptions: No Action lisinopril 10 mg tablet 10 mg PO DAILY gabapentin 300 mg capsule 1,500 mg PO DAILY Qty: 150 5RF Rx Instructions: 2 capsules in the morning and 3 capsules at night tamsulosin 0.4 mg capsule 0.4 mg PO DAILY 90 Days Qty: 90 1RF finasteride 5 mg tablet 5 mg PO DAILY 90 Days Qty: 90 1RF sodium,potassium,mag sulfates [Suprep Bowel Prep Kit] 17.5-3.13-1.6 gram recon soln See Rx Instructions PO .COMPLEX Qty: 354 0RF Rx Instructions: DILUTE; drink full amount early evening before AND next morning at least 2 hr before procedure; follow w 960 mL water PO duloxetine 60 mg capsule,delayed release(DR/EC) 60 mg PO BID Qty: 60 5RF omeprazole magnesium 20 mg tablet,delayed release (DR/EC) 20 mg PO DAILY atorvastatin [Lipitor] 20 mg tablet 20 mg PO DAILY Qty: 30 0RF Referrals Follow up/Referrals: Beltran Batista MD [Primary Care Provider, Medical] - See instructions Activity Restrictions/Add. Instructions Additional Instructions/Restrictions: Please follow-up with your primary care provider. Please return to the emergency department if you develop any new or worsening symptoms or become concerned for your health. Clinical Impressions Clinical Impression: Rocha catheter problem Qualifiers: Encounter type: initial encounter Qualified Code(s): T83.9XXA - Unspecified complication of genitourinary prosthetic device, implant and graft, initial encounter Instructions Patient Instructions: DI for Acute Abdominal Pain Print Language Print Language: Gabonese Discharge ED Provider: Garcia Cardona General Adult HPI General Chief complaint: Abdominal Pain Stated complaint: catheter not working Time Seen by Provider: 07/11/25 04:15 Mode of Arrival: Ambulatory Source of Information: Patient Description of Symptoms (Recalled from ER Triage Doc. by RN): Pt states he had a laser treatment on prostate yesterday and now rocha catheter not draining History of Present Illness HPI narrative: 85-year-old male presents for catheter issues. He reports that he had a laser treatment on his prostate yesterday and they placed a Rocha but he does not feel like it is quite draining properly. They cleaned the bag yesterday but now it does not seem to be draining. Denies maribeth blood. Reports some fullness. Denies fever. Related Data Home Medications ?Medication ?Instructions ?Recorded ?Confirmed lisinopril 10 mg tablet 10 mg PO DAILY 02/20/20 07/04/25 omeprazole magnesium 20 mg 20 mg PO DAILY 03/03/24 07/04/25 tablet,delayed release Previous Rx's ?Medication ?Instructions ?Recorded atorvastatin 20 mg tablet (Lipitor) 20 mg PO DAILY #30 tabs 01/17/25 finasteride 5 mg tablet 5 mg PO DAILY 90 days #90 tabs 02/20/25 tamsulosin 0.4 mg capsule 0.4 mg PO DAILY 90 days #90 caps 02/20/25 gabapentin 300 mg capsule 1,500 mg (5 x 300 mg) PO DAILY 02/21/25 Focal seizures, neuropathy #150 caps duloxetine 60 mg capsule,delayed 60 mg PO BID #60 caps 04/20/25 release sodium,potassium,mag sulfates 17.5 See Rx Instructions PO .COMPLEX 05/04/25 gram-3.13 gram-1.6 gram oral soln #354 mL (Suprep Bowel Prep Kit) Allergies Allergy/AdvReac Type Severity Reaction Status Date / Time No Known Allergies Allergy Verified 07/04/25 10:50 [facility] Disclaimer: The information contained in this section may have been updated after the patient was seen, as this information can be updated by other users. 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 OP follow-up at [facility] Tremor Stable Peripheral neuropathy Chest pain Stroke Colon cancer Left hand paresthesia Left hand pain Chronic pain of right knee Stricture of sigmoid colon CVA (cerebrovascular accident) HTN (hypertension) Surgical History History of hip surgery H/O hernia repair History of cataract surgery History of open heart surgery History of aortic valve replacement History of heart surgery History of cholecystectomy History of colon resection History of colonoscopy Family History Other Cancer Heart attack Hypertension Stroke Social History Smoking Status: Never smoker second hand exposure: No alcohol intake: never substance use type: denies use current occupational status: other Travel in the last 8 weeks?: None adopted: No caregiver/support person: Yes foster care: No household members: spouse housing: house lives independently: No marital status: 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 occupational exposures/hazards: No caffeine: Yes Have you lived/traveled outside [place] in past 30 days?: No Contact w/someone who lives/traveled outside US past 30 days?: No Exposure to someone with infectious disease in past 14 days?: No Do you have a fever (greater than 100.4 F or 38 C)?: No Have you tested positive for COVID-19?: No Exposed to someone with COVID-19 in past 14 days?: No Do you have a sore throat?: No Do you have a cough?: No Do you have any weakness?: No Do you have any diarrhea?: No Are you experiencing any unusual bleeding?: No Do you have any muscle aches/pain?: No Do you have any abdominal pain?: No Are you experiencing loss of taste or smell?: No Other Medical History Have you received the Flu Vaccine for this season: No Have you received the Pneumonia Vaccine: No ROS Obtained: Yes All systems reviewed & no additional complaints except as documented Physical Exam General General appearance: alert and in no apparent distress Head Head exam: atraumatic and normocephalic Eye Eye exam: Present normal appearance, PERRL and EOMI ENT ENT exam: Present normal oropharynx and normal external ear exam Neck Neck exam: Present normal inspection and full ROM Chest Chest inspection: Present normal inspection and symmetric chest wall rise; Absent tenderness Respiratory Respiratory exam: Present normal lung sounds bilaterally; Absent respiratory distress Cardiovascular Cardiovascular exam: Present regular rate and normal rhythm Abdominal Exam Abdominal exam: Present soft; Absent distention, tenderness or guarding Extremities Exam Extremities exam: Present normal inspection; Absent edema or joint swelling Back Exam Back exam: Present normal inspection; Absent tenderness Neurological Exam Neurological exam: Present alert and oriented X3; Absent motor sensory deficit Psychiatric Psychiatric exam: Present normal affect and normal mood Skin Skin exam: Present warm, dry and normal color Lymphatic Lymphatic Findings: no adenopathy Medical Decision Making Medical Records Medical records reviewed: Yes I reviewed the patient's medical records. Screening: Per USPSTF and CDC recommendations, given the prevalence of disease in our region, it is our hospital?s policy to screen for HIV and viral Hepatitis for all patients aged 18 and over and those with ongoing risk factors. [place] Inquiry Pt receiving controlled substance: No [place] was queried for this patient: No Vital Signs: 07/11/25 04:20 07/11/25 05:00 Temperature 98.2 F 98.2 F Temperature Source Oral Oral Pulse Rate 76 Pulse Rate [Right Radial] 88 Respiratory Rate 20 18 Blood Pressure 148/77 H Blood Pressure [Right Arm] 179/90 H Blood Pressure Mean [Right Arm] 119 Blood Pressure Source Automatic Cuff Blood Pressure Source [Right Arm] Automatic Cuff Blood Pressure Position Sitting Blood Pressure Position [Right Arm] Sitting 02 Sat by Pulse Oximetry 95 Oxygen Delivery Method Room Air Room Air Lab Data Lab results reviewed: Yes I reviewed the patient's lab results. Medical Decision Narrative: 85-year-old male presents 1 day after having a laser treatment on his prostate with concerns that his Rocha bag is not functioning properly. Patient did not seem particularly distended on exam. There is some urine in the bag. We changed the bag and it seemed to drain a little easier. A postvoid was done after changing the bag and the bladder was empty. Given this, he was deemed appropriate discharge and encouraged to return if he develops obstruction. Procedures Risk/Benefits of Procedure(s) Were Explained: Yes Critical Care Critical Care Time Critical Care Time: No
[2025-07-11 05:00] VITALS: BP 148/77; PULSE 76; RESP 18; TEMP 36.8; O2SAT 95
--- NOTE | 2025-07-11 05:06 | PC.NURSE ---
0445- bladder scan negative
== END 2025-07-11 05:01 | disposition home or self-care (01) ==
PROVIDERS: Emergency Provider Emergency Medicine; PCP Family Medicine
DX: T83.091A Other mechanical complication of indwelling urethral catheter, initial encounter (principal)
CPT/HCPCS: 99283